=== PATIENT | male | born 1935 | race Caucasian/White ===

== ENCOUNTER 2016-10-09 07:28 | Outpatient (CLI) | payer MEDICARE, OTHER ==
[2016-10-09 14:34] LABS: BASOPHILS # (AUTO) 0.1 10^3/uL (0.0-0.1); BASOPHILS % (AUTO) 1.2 %; EOSINOPHILS # (AUTO) 0.2 10^3/uL (0.0-0.7); EOSINOPHILS % (AUTO) 3.6 %; HCT - HEMATOCRIT 45.9 % (42.0-52.0); HGB - HEMOGLOBIN 15.3 g/dL (14.0-18.0); LYMPHOCYTES # (AUTO) 1.6 10^3/uL (1.5-3.5); LYMPHOCYTES % (AUTO) 26.2 %; MEAN CORPUSCULAR HEMOGLOBIN 31.2 pg (27.0-31.0); MEAN CORPUSCULAR HGB CONC 33.4 g/dL (32.0-36.0); MEAN CORPUSCULAR VOLUME 93.5 fL (80.0-94.0); MEAN PLATELET VOLUME 8.4 fL (7.4-11.4); MONOCYTES # (AUTO) 0.7 10^3/uL (0.0-1.0); NEUTROPHILS # (AUTO) 3.6 10^3/uL (1.5-6.6); NUCLEATED RED BLOOD CELLS AUTO 0.1 /100WBC; RED BLOOD COUNT 4.91 10^6/uL (4.70-6.10); RED CELL DISTRIBUTION WIDTH 12.7 % (12.0-15.0); UNCORRECTED WHITE BLOOD COUNT 6.2 x10^3/uL; WHITE BLOOD COUNT 6.2 x10^3/uL (4.8-10.8)
[2016-10-09 14:38] LABS: ALBUMIN/GLOBULIN RATIO 1.3 (1.0-2.2); BILIRUBIN,TOTAL 0.8 mg/dL (0.2-1.0); CALCIUM 9.2 mg/dL (8.5-10.3); MAGNESIUM 2.3 mg/dL (1.7-2.8); POTASSIUM 4.1 mmol/L (3.5-5.0); TOTAL PROTEIN 6.9 g/dL (6.7-8.2)
[2016-10-09 15:08] LABS: FOLATE 11.83 ng/mL (5.90 - >24.8)
[2016-10-09 15:13] LABS: CHOL/HDL RATIO 3.2 (<5.0); CHOLESTEROL 168 mg/dL; HDL CHOLESTEROL 53 mg/dL; LDL/HDL RATIO 1.8 (<3.6); TRIGLYCERIDES 104 mg/dL; VLDL CHOLESTEROL 21 mg/dL
[2016-10-09 15:15] LABS: THYROID STIMULATING HORMONE 3.9 uIU/mL (0.34-5.60)
== END 2016-10-09 07:29 | disposition home or self-care (01) ==
LOC: LAB.WCP 07:28
PROVIDERS: ATTEND Family Medicine
DX: G62.9 Polyneuropathy, unspecified (principal); R53.83 Other fatigue; E78.5 Hyperlipidemia, unspecified
CPT/HCPCS: 36415; 80053; 80061; 82306; 82607; 82746; 83735; 84403; 84443; 85025

== ENCOUNTER 2017-06-24 11:23 | Emergency (ER) | payer MEDICARE, OTHER ==
[2017-06-24 11:45] VITALS: BP 111/89
[2017-06-24] MEDS ORDERED: LIDOCAINE 1% 2 ML VIAL SUBQ ONE (12:35)
[2017-06-24] MEDS ORDERED: cefTRIAXone 1 GM VIAL IM STA (12:35)
[2017-06-24] MEDS ORDERED: DEXAMETHASONE 10 MG/ML VIAL PO STA (12:35)
--- NOTE | 2017-06-24 12:42 | XRAY Preliminary Report ---
Exam: XR CHEST 2 VIEW X-RAY IMPRESSION: Mild increased right central peribronchial thickening and increased right infrahilar markings which c ould be due to peribronchial thickening, mild atelectasis or possible mild acute infiltrate, without evidence of focal consolidation. [facility] SITE ID: [id number]
--- NOTE | 2017-06-24 12:42 | XRAY Report ---
EXAM: CHEST RADIOGRAPHY EXAM DATE: 06/24/2017 11:59 AM. CLINICAL HISTORY: Cough. COMPARISON: 11/30/2015. TECHNIQUE: 2 views. FINDINGS: Lungs/Pleura: Mild increased predominantly right sided peribronchial thickening and increased right i nfrahilar markings which could be related to peribronchial thickening versus mild atelectasis or mild infiltrate. No dense consolidation. No pleural effusion. No pneumothorax. Mediastinum: Heart and mediastinal contours are unremarkable. Other: No definite acute osseous abnormality. IMPRESSION: Mild increased right central peribronchial thickening and increased right infrahilar markings which c ould be due to peribronchial thickening, mild atelectasis or possible mild acute infiltrate, without evidence of focal consolidation. [facility] Referring Provider Line: [phone] SITE ID: [id number]
--- NOTE | 2017-06-24 13:43 | ED Physician Documentation ---
PD HPI URI - Stated complaint Stated Complaint: COUGH,CHILLS - Chief complaint Chief Complaint: Resp - History obtained from History obtained from: Patient - History of Present Illness Timing - onset: How many days ago (5) Timing duration: Days (5) Timing details: Gradual onset, Still present Associated symptoms: Fever, Chills, Nasal congestion, Rhinorrhea, Productive cough Improves by: Rest, Medication Worsened by: Activity Similar symptoms before: Has not had sx before Recently seen: Not recently seen - Additional information Additional information: 81-year-old male was returned from a trip to [facility] with a cough developing and he has developed a fever with this as well Review of Systems Constitutional: reports: Fever, Chills, Myalgias, Fatigue Eyes: denies: Decreased vision Ears: denies: Ear pain Nose: reports: Rhinorrhea / runny nose, Congestion Throat: reports: Sore throat Cardiac: denies: Chest pain / pressure, Palpitations Respiratory: reports: Cough. denies: Dyspnea GI: denies: Abdominal Pain, Nausea, Vomiting : denies: Dysuria, Frequency Skin: denies: Rash Musculoskeletal: denies: Neck pain, Back pain Neurologic: denies: Generalized weakness, Focal weakness, Numbness PD PAST MEDICAL HISTORY - Past Medical History Past Medical History: No - Past Surgical History Past Surgical History: Yes General: Appendectomy - Present Medications Home Medications: Ambulatory Orders Medication Instructions Recorded Confirmed Aspirin 1 tab PO DAILY 06/24/17 06/24/17 Azithromycin [Zithromax] 250 mg PO DAILY #6 tablet 06/24/17 - Allergies Allergies/Adverse Reactions: Allergies Allergy/AdvReac Type Severity Reaction Status Date / Time No Known Drug Allergies Allergy Verified 06/24/17 11:45 - Social History Does the pt smoke?: No Smoking Status: Never smoker Does the pt drink ETOH?: Yes ETOH Use: Wine Does the pt have substance abuse?: No - Immunizations Immunizations are current?: Yes - POLST Patient has POLST: No PD ED PE NORMAL - Vitals Vital signs reviewed: Yes (normal ) - General General: No acute distress, Well developed/nourished - HEENT HEENT: Atraumatic, PERRL, EOMI, Pharynx benign, Other (right TM is inflamed left is clear) - Neck Neck: Supple, no meningeal sign, No bony TTP - Cardiac Cardiac: RRR, No murmur - Respiratory Respiratory: No respiratory distress - Abdomen Abdomen: Soft, Non tender - Back Back: No CVA TTP, No spinal TTP - Derm Derm: Normal color, Warm and dry, No rash - Extremities Extremities: No deformity, No edema - Neuro Neuro: No motor deficit, No sensory deficit Eye Opening: Spontaneous Motor: Obeys Commands Verbal: Oriented GCS Score: 15 - Psych Psych: Normal mood, Normal affect Results - Vitals Vitals: Vital Signs - 24 hr 06/24/17 11:40 Temperature 37.3 C Heart Rate 73 Respiratory 20 Rate Blood Pressure 111/89 H O2 Saturation 96 Oxygen O2 Source Room air - Rads (name of study) 2 veiw chest Radiology: Prelim report reviewed (Impression: Mild increased right central peribronchial thickening and increased right infrahilar markings which could be peribronchial thickening, mild atelectasis or possible mild acute infiltrate, without evidence of focal consolidation.), EMP read indepedently, See rad report PD MEDICAL DECISION MAKING - ED course Complexity details: reviewed old records, reviewed results, re-evaluated patient , considered differential, d/w patient, d/w family ED course: 81-year-old male with acute URI appears to have pneumonia on x-ray of his lungs here in the emergency department he is administered dexamethasone 10 mg orally and 1 g of Rocephin IM. We will put him on some azithromycin as well. Departure - Departure Disposition: 01 Home, Self Care Clinical Impression: Pneumonia Qualifiers: Pneumonia type: due to unspecified organism Laterality: right Lung location: lower lobe of lung Qualified Code(s): J18.1 - Lobar pneumonia, unspecified organism Condition: Stable Instructions: ED Pneumonia Adult Follow-Up: Lucien Lan MD [Primary Care Provider] - Prescriptions: Azithromycin [Zithromax] 250 mg PO DAILY #6 tablet
== END 2017-06-24 14:03 | disposition home or self-care (01) ==
LOC: ED 11:23
DX: J06.9 Acute upper respiratory infection, unspecified (principal); J18.9 Pneumonia, unspecified organism
CPT/HCPCS: 71046; 96372; 99283

== ENCOUNTER 2017-06-26 13:28 | Emergency (ER) | payer MEDICARE, OTHER ==
[2017-06-26 13:42] VITALS: BP 130/63
--- NOTE | 2017-06-26 16:07 | ED Physician Documentation ---
PD HPI URI - Stated complaint Stated Complaint: COUGHING UP BLOOD - Chief complaint Chief Complaint: Resp - History obtained from History obtained from: Patient - History of Present Illness Timing - onset: How many days ago (8) Timing duration: Days (8) Timing details: Gradual onset, Still present Associated symptoms: Fever, Nasal congestion, Rhinorrhea, Sore throat, Productive cough, Hemoptysis Contributing factors: Travel Improves by: Rest, Medication Worsened by: Activity Similar symptoms before: Diagnosis (pneumonia) Recently seen: Emergency Dept - Additional information Additional information: 81-year-old male has recently returned from [facility] on [address] with a cough congestion and phlegm production. He was seen in the emergency department here 3 days ago diagnosed with pneumonia in the right lower lobe and he was given an injection of Rocephin some dexamethasone and was placed on azithromycin.He states that he is feeling much better but continues to have nasal congestion and cough. He has started to cough up blood. He has brought in samples about dime size spots of phlegm. This has usually occurred after coughing paroxysm and has happened about once or twice per day. He is not having any blood from his nose. He does have yellow phlegm in between the bloody phlegm Review of Systems Constitutional: reports: Fever, Myalgias, Fatigue Eyes: denies: Decreased vision Ears: denies: Ear pain Nose: reports: Rhinorrhea / runny nose, Congestion Throat: reports: Sore throat Cardiac: denies: Chest pain / pressure, Palpitations Respiratory: reports: Cough, Hemoptysis. denies: Dyspnea GI: denies: Abdominal Pain, Nausea, Vomiting : denies: Dysuria, Frequency Skin: denies: Rash Musculoskeletal: denies: Neck pain, Back pain, Extremity pain Neurologic: denies: Generalized weakness, Focal weakness, Numbness PD PAST MEDICAL HISTORY - Past Medical History Past Medical History: No - Past Surgical History Past Surgical History: Yes General: Appendectomy - Present Medications Home Medications: Ambulatory Orders Medication Instructions Recorded Confirmed Aspirin 1 tab PO DAILY 06/24/17 06/24/17 Azithromycin [Zithromax] 250 mg PO DAILY #6 tablet 06/24/17 Benzonatate [Tessalon] 100 - 200 mg PO TID PRN #20 capsule 06/26/17 - Allergies Allergies/Adverse Reactions: Allergies Allergy/AdvReac Type Severity Reaction Status Date / Time No Known Drug Allergies Allergy Verified 06/26/17 13:42 - Social History Does the pt smoke?: No Smoking Status: Never smoker Does the pt drink ETOH?: Yes Does the pt have substance abuse?: No - Immunizations Immunizations are current?: Yes - POLST Patient has POLST: No PD ED PE NORMAL - Vitals Vital signs reviewed: Yes (normal ) - General General: Alert and oriented X 3, No acute distress, Well developed/nourished - HEENT HEENT: Atraumatic, PERRL, EOMI, Moist mucous membranes, Pharynx benign, Dentition benign, Other (There is minimal inflamation on the right TM only ) - Neck Neck: Supple, no meningeal sign, No bony TTP - Cardiac Cardiac: RRR, No murmur - Respiratory Respiratory: No respiratory distress, Clear bilaterally - Abdomen Abdomen: Soft, Non tender - Back Back: No CVA TTP, No spinal TTP - Derm Derm: Normal color, Warm and dry, No rash - Extremities Extremities: No deformity, No edema - Neuro Neuro: Alert and oriented X 3, No motor deficit, No sensory deficit, Normal speech Eye Opening: Spontaneous Motor: Obeys Commands Verbal: Oriented GCS Score: 15 - Psych Psych: Normal mood, Normal affect Results - Vitals Vitals: Vital Signs - 24 hr 06/26/17 13:35 Temperature 37 C Heart Rate 56 L Respiratory 15 Rate Blood Pressure 130/63 O2 Saturation 97 Oxygen O2 Source Room air - Rads (name of study) 2 view chest Radiology: Prelim report reviewed (Impression: No consolidation.), EMP read indepedently (on my veiw there is interval improvement), See rad report PD MEDICAL DECISION MAKING - ED course Complexity details: reviewed old records, reviewed results, re-evaluated patient , considered differential, d/w patient ED course: 81-year-old male with pneumonia has developed some hemoptysis after coughing paroxysms. He feels he is improving dramatically with his cough and his symptoms and chest x-ray today demonstrates radiographic improvement as well. I will prescribe some cough suppressant. Departure - Departure Disposition: 01 Home, Self Care Clinical Impression: Pneumonia Qualifiers: Pneumonia type: due to unspecified organism Laterality: right Lung location: lower lobe of lung Qualified Code(s): J18.1 - Lobar pneumonia, unspecified organism Condition: Stable Instructions: ED Pneumonia Adult Follow-Up: Lucien Lan MD [Primary Care Provider] - Prescriptions: Benzonatate [Tessalon] 100 - 200 mg PO TID PRN #20 capsule PRN Reason: Cough
--- NOTE | 2017-06-26 16:14 | XRAY Report ---
EXAM: CHEST RADIOGRAPHY EXAM DATE: 06/26/2017 03:38 PM. CLINICAL HISTORY: Hemoptysis. COMPARISON: Chest x-ray 06/24/2017. TECHNIQUE: 2 views. FINDINGS: Lungs/Pleura: No focal opacities evident. No pleural effusion. No pneumothorax. Normal volumes. Mediastinum: Heart and mediastinal contours are unremarkable. Other: None. IMPRESSION: No consolidation. [facility] Referring Provider Line: [phone] SITE ID: [id number]
== END 2017-06-26 16:28 | disposition home or self-care (01) ==
LOC: ED 13:28
DX: J18.1 Lobar pneumonia, unspecified organism (principal); R04.2 Hemoptysis; Z79.82 Long term (current) use of aspirin
CPT/HCPCS: 71046; 99283; 99284

== ENCOUNTER 2018-04-24 08:00 | Outpatient (CLI) | payer MEDICARE, OTHER ==
[2018-04-24 19:00] LABS: BASOPHILS # (AUTO) 0.1 10^3/uL (0.0-0.1); BASOPHILS % (AUTO) 0.9 %; EOSINOPHILS # (AUTO) 0.2 10^3/uL (0.0-0.7); EOSINOPHILS % (AUTO) 2.1 %; LYMPHOCYTES # (AUTO) 1.3 10^3/uL (1.5-3.5); MEAN CORPUSCULAR HEMOGLOBIN 31.9 pg (27.0-31.0); MEAN CORPUSCULAR HGB CONC 33.1 g/dL (32.0-36.0); MEAN CORPUSCULAR VOLUME 96.5 fL (80.0-94.0); MEAN PLATELET VOLUME 8.1 fL (7.4-11.4); MONOCYTES # (AUTO) 0.8 10^3/uL (0.0-1.0); MONOCYTES % (AUTO) 11.3 %; NEUTROPHILS % (AUTO) 67.7 %; PLT - PLATELET COUNT 253 10^3/uL (130-450); RED BLOOD COUNT 5.01 10^6/uL (4.70-6.10); RED CELL DISTRIBUTION WIDTH 13.2 % (12.0-15.0); WHITE BLOOD COUNT 7.5 x10^3/uL (4.8-10.8)
[2018-04-24 19:26] LABS: ALBUMIN 4.1 g/dL (3.2-5.5); ALBUMIN/GLOBULIN RATIO 1.5 (1.0-2.2); ALKALINE PHOSPHATASE 61 IU/L (42-121); ALT ALANINE AMINOTRANSFERASE 32 IU/L (10-60); AST ASPARTATE AMINOTRANSFERASE 27 IU/L (10-42); BILIRUBIN,TOTAL 0.6 mg/dL (0.2-1.0); BUN - BLOOD UREA NITROGEN 18 mg/dL (6-20); CALCIUM 8.9 mg/dL (8.5-10.3); CARBON DIOXIDE - CO2 27 mmol/L (21-32); CHLORIDE 104 mmol/L (101-111); GFR - MDRD 71 (>89); GLUCOSE 95 mg/dL (70-100); SODIUM 139 mmol/L (135-145); TOTAL PROTEIN 6.8 g/dL (6.7-8.2)
== END 2018-04-24 23:59 | disposition home or self-care (01) ==
LOC: LAB.WCP 08:00
PROVIDERS: ATTEND Family Medicine
DX: M75.101 Unspecified rotator cuff tear or rupture of right shoulder, not specified as traumatic (principal); H61.23 Impacted cerumen, bilateral; E73.9 Lactose intolerance, unspecified; J45.909 Unspecified asthma, uncomplicated
CPT/HCPCS: 36415; 80053; 84443; 85025

== ENCOUNTER 2018-09-28 05:49 | Observation (INO) | payer MEDICARE, OTHER ==
--- NOTE | 2018-09-28 06:06 | ED Physician Documentation ---
PD HPI CHEST PAIN - Stated complaint Stated Complaint: CP - Chief complaint Chief Complaint: Cardiac - History obtained from History obtained from: Patient, Family - History of Present Illness Timing - onset during: Sleep Timing - duration: Minutes (75) Timing - details: Abrupt onset Pain level max: 5 Pain level now: 4 Quality: Pressure, Sharp Location: Left chest Radiation: No: Jaw, Neck, Back, Abdominal, Left upper extremity, Right upper extremity Improved by: ASA Worsened by: No: Exertion, Inspiration, Eating, Movement, Palpation, Position Associated symptoms: Feeling faint / dizzy. No: Shortness of air, Diaphoresis, Nausea, Vomiting, General Weakness, Palpitations, Cough Similar symptoms before: Has not had sx before Recently seen: Not recently seen - Additional information Additional information: 83-year-old gentleman with left-sided chest pain this morning. Nonradiating. States he had a similar episode last night x2. These resolved after about an hour and soon after taking aspirin. Occurred again this morning when he took a full dose aspirin and the pain persisted, therefore came for evaluation. Had a normal cardiac stress test several years ago. Runs 30 minutes 3 times a week on a treadmill. No cardiac history Review of Systems Constitutional: denies: Fever, Chills Cardiac: denies: Palpitations Respiratory: denies: Cough GI: denies: Vomiting, Diarrhea Skin: denies: Rash Musculoskeletal: denies: Neck pain, Back pain Neurologic: denies: Headache PD PAST MEDICAL HISTORY - Past Medical History Past Medical History: Yes Respiratory: Asthma - Past Surgical History Past Surgical History: Yes General: Appendectomy - Present Medications Home Medications: Ambulatory Orders Medication Instructions Recorded Confirmed Aspirin 1 tab PO DAILY 06/24/17 06/24/17 Azithromycin [Zithromax] 250 mg PO DAILY #6 tablet 06/24/17 Benzonatate [Tessalon] 100 - 200 mg PO TID PRN #20 capsule 06/26/17 - Allergies Allergies/Adverse Reactions: Allergies Allergy/AdvReac Type Severity Reaction Status Date / Time No Known Drug Allergies Allergy Verified 09/28/18 05:58 - Living Situation Living Situation: reports: With family Living Arrangement: reports: At home - Social History Does the pt smoke?: No Smoking Status: Never smoker Does the pt drink ETOH?: Yes ETOH Use: Wine Does the pt have substance abuse?: No - Immunizations Immunizations are current?: Yes - POLST Patient has POLST: No PD ED PE NORMAL - Vitals Vital signs reviewed: Yes - General General: Alert and oriented X 3, No acute distress, Well developed/nourished - HEENT HEENT: PERRL, Moist mucous membranes - Neck Neck: Supple, no meningeal sign - Cardiac Cardiac: RRR, Strong equal pulses - Respiratory Respiratory: No respiratory distress, Clear bilaterally - Abdomen Abdomen: Soft, Non tender, Non distended - Derm Derm: Warm and dry - Extremities Extremities: No edema, No calf tenderness / cord - Neuro Neuro: Alert and oriented X 3 - Psych Psych: Normal mood, Normal affect Results - Vitals Vitals: Vital Signs - 24 hr 09/28/18 09/28/18 05:55 05:59 Temperature 36.1 C L Heart Rate 51 L 46 L Respiratory 15 16 Rate Blood Pressure 179/73 H 179/93 H O2 Saturation 99 99 Oxygen O2 Source Room air - EKG (time done) 0603 Rate: Rate (enter#) (49) Rhythm: Sinus bradycardia [place]: Normal Intervals: Normal [place], RBBB - Labs Labs: Laboratory Tests 09/28/18 09/28/18 09/28/18 06:05 06:05 06:05 WBC 7.8 RBC 4.56 L Hgb 15.0 Hct 42.4 MCV 93.0 MCH 33.0 H MCHC 35.4 RDW 12.9 Plt Count 237 MPV 7.2 L Neut # (Auto) 5.0 Lymph # (Auto) 1.8 Brule # (Auto) 0.9 Eos # (Auto) 0.1 Baso # (Auto) 0.1 Absolute Nucleated RBC 0.00 Nucleated RBC % 0.1 Sodium 141 Potassium 4.3 Chloride 105 Carbon Dioxide 25 Anion Gap 11.0 BUN 28 H Creatinine 1.1 Estimated GFR (MDRD) 64 L Glucose 101 H Calcium 9.1 Total Bilirubin 0.6 AST 20 ALT 18 Alkaline Phosphatase 57 Troponin I < 0.04 Total Protein 6.6 L Albumin 3.7 Globulin 2.9 Albumin/Globulin Ratio 1.3 Lipase 44 - Rads (name of study) Chest x-ray Radiology: Prelim report reviewed, EMP read contemporaneously, See rad report (Normal) PD MEDICAL DECISION MAKING - ED course Complexity details: reviewed results, re-evaluated patient, considered differential (No ST elevation [place], no aortic dissection, no PE, no tension pneumothorax, no aortic aneurysm), d/w patient, d/w quantitative consultant ED course: 83-year-old gentleman with left-sided chest pain today. Has a right bundle branch block on EKG. Initial troponin is negative. He states that he does have high systolic blood pressure when he checks it at the machine at the gym but is not on medication for this. Will place him in observation for rule out FL. He will likely also need a cardiac stress test early next week. Discussed the case with Dr. Simon, hospitalist who accepts. This document was made in part using voice recognition software. While efforts are made to proofread this document, sound alike and grammatical errors may occur. Bradycardia is chronic and asymptomatic Departure - Departure Disposition: ED Place in Observation Clinical Impression: Bradycardia Chest pain Qualifiers: Chest pain type: unspecified Qualified Code(s): R07.9 - Chest pain, unspecified Hypertension Qualifiers: Hypertension type: unspecified Qualified Code(s): I10 - Essential (primary) hypertension Condition: Stable
[2018-09-28 06:13] LABS: BASOPHILS # (AUTO) 0.1 10^3/uL (0.0-0.1); BASOPHILS % (AUTO) 0.8 %; EOSINOPHILS # (AUTO) 0.1 10^3/uL (0.0-0.7); EOSINOPHILS % (AUTO) 1.8 %; LYMPHOCYTES # (AUTO) 1.8 10^3/uL (1.5-3.5); LYMPHOCYTES % (AUTO) 22.7 %; MEAN CORPUSCULAR HGB CONC 35.4 g/dL (32.0-36.0); MEAN PLATELET VOLUME 7.2 fL (7.4-11.4); MONOCYTES # (AUTO) 0.9 10^3/uL (0.0-1.0); NEUTROPHILS % (AUTO) 63.7 %; PLT - PLATELET COUNT 237 10^3/uL (130-450); RED BLOOD COUNT 4.56 10^6/uL (4.70-6.10); RED CELL DISTRIBUTION WIDTH 12.9 % (12.0-15.0); WHITE BLOOD COUNT 7.8 x10^3/uL (4.8-10.8)
--- NOTE | 2018-09-28 06:24 | XRAY Report ---
Reason: chest pain L side Procedure Date: 09/28/2018 Accession Number: [id number] / [id number] Procedure: XR - Chest 1 View X-Ray CPT Code: 01314 FULL RESULT: EXAM: CHEST RADIOGRAPHY EXAM DATE: 09/28/2018 06:14 AM. CLINICAL HISTORY: Chest pain L side. COMPARISON: None. TECHNIQUE: 1 view. FINDINGS: Lungs/Pleura: No focal opacities evident. No pleural effusion. No pneumothorax. Mediastinum: Within exam limitations, the cardiomediastinal contour is normal. Other: None. IMPRESSION: Normal single view chest. [facility]
[2018-09-28 06:26] LABS: ALBUMIN 3.7 g/dL (3.2-5.5); ALBUMIN/GLOBULIN RATIO 1.3 (1.0-2.2); BILIRUBIN,TOTAL 0.6 mg/dL (0.2-1.0); CALCIUM 9.1 mg/dL (8.5-10.3); CREATININE 1.1 mg/dL (0.6-1.2); TOTAL PROTEIN 6.6 g/dL (6.7-8.2)
[2018-09-28] MEDS ORDERED: HYDROcod/ACETAM 5/325 MG TABLET PO PRN (07:35)
[2018-09-28] MEDS ORDERED: SODIUM CHLORIDE FLUSH 0.9% 10 ML SYRINGE IVP PRN (07:35)
[2018-09-28] MEDS ORDERED: MORPHINE 2 MG/ML CARPUJECT IVP PRN (07:35)
[2018-09-28] MEDS ORDERED: ACETAMINOPHEN 325 MG TABLET PO PRN (07:35)
[2018-09-28] MEDS ORDERED: PROCHLORPERAZINE 10 MG/2 ML VIAL IVP PRN (07:35)
[2018-09-28] MEDS ORDERED: NITROGLYCERIN SL 0.4 MG TABLET SL STA (08:15)
[2018-09-28 08:43] LABS: CHOL/HDL RATIO 3.1 (<5.0); CHOLESTEROL 154 mg/dL; HDL CHOLESTEROL 49 mg/dL; LDL CHOLESTEROL,CALCULATED 93 mg/dL; LDL/HDL RATIO 1.9 (<3.6); VLDL CHOLESTEROL 12 mg/dL
[2018-09-28] MEDS ORDERED: amLODIPine 5 MG TABLET PO SCH (09:00)
[2018-09-28] MEDS: SODIUM CHLORIDE FLUSH 0.9% 10 ML SYRINGE IVP SCH ×2 (09:30→20:49)
[2018-09-28] MEDS: ASPIRIN EC 81 MG TABLET PO SCH (10:04)
[2018-09-28] MEDS: ENOXAPARIN 40 MG/0.4 ML SYRINGE SUBQ SCH (10:16)
[2018-09-28] MEDS: POLYETHYLENE GLYCOL 3350 17 GM PACKET PO SCH (10:16)
[2018-09-28] MEDS: FLUTICASONE NASAL SPRAY NAS SCH ×2 (10:20→20:35)
--- NOTE | 2018-09-28 14:48 | HISTORY & PHYSICAL EXAMINATION ---
DATE OF SERVICE: 10/05/2018 Physician: Minal Simon MD HISTORY OF PRESENT ILLNESS: This is an 83-year-old white male with a history of asthma for which he takes p.r.n. 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 The patient remembers having 2 stress tests in the past and thinks he passed them. He exercises 3 times a week at the gym and does light weight training. The patient developed left lower anterior chest pain with mild activity for which he took a baby aspirin and he states this helped the discomfort in about 45 minutes. Another episode occurred that woke him from sleep for which he took again a baby aspirin and again resolved in 45 minutes and this morning there was chest pain as he awoke for which his gave him 2 adult aspirin and again it resolved in 1.5 hours. The pain was not pleuritic. There were no associated symptoms or spread of the discomfort and he has never had it before these last several days. He presented to the emergency room with this discomfort and has not had it since MEDICATIONS 1. Refresh Tears 2. Flonase nasal spray. 3. Flovent inhaler p.r.n. b.i.d. ALLERGIES: NONE. FAMILY HISTORY: His father had coronary disease, a son had melanoma. SOCIAL HISTORY: The patient is a nonsmoker who never smoked, drinks one-half glass of wine per day, uses no illicit drugs. 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 A comprehensive review of systems was performed and they are listed above the rest pertinent positives and negative, . PHYSICAL EXAMINATION GENERAL: Elderly white male. He is in no distress. Speaks with a hoarse voice. VITAL SIGNS: Blood pressure 150/100, heart rate 44-55 in sinus bradycardia, afebrile, room air saturation 100%. HEENT: Reveals moist oral mucosa. Good dentition. Hoarse voice. NECK: Without JVD or carotid bruits. CHEST: Clear. Good air movement. HEART: Normal heart sounds without murmurs. ABDOMEN: Soft with positive bowel sounds that are hyperactive also, heard in the lower chest, nontender. EXTREMITIES: No clubbing, cyanosis or edema. NEUROLOGIC: Grossly intact. LABORATORY LABORATORIES: Normal electrolytes, normal being Normal electrolytes, BUN 28, creatinine 1.1. Normal liver tests. Troponin is not detectable at less than 0.04. Lipase normal. CBC unremarkable. No INR was done. DIAGNOSTIC STUDIES: Chest x-ray: No active pulmonary disease. EKG: Sinus bradycardia, right bundle branch block. No old EKG available for comparison. IMPRESSION 1. Chest pain, possible angina of new onset since the patient's risk factors are uncontrolled hypertension, unknown cholesterol status, family history of heart disease, male gender and advanced age. 3. Hypertension. 4. Bradycardia. 5. Prerenal renal failure. 6. History of asthma. 7. History of vocal cord abnormality. 8. History of gastroesophageal reflux disease. PLAN: Admit the patient in Observation status, on telemetry. Cycle troponins x3. Obtain an Echo to evaluate for resting wall motion abnormalities. Check his cholesterol status. Continue to treat the asthma history with p.r.n. inhalers. If he has normal troponins the next step would be a stress test; however, this is the weekend and we have no stress testing availability on Saturdays or Sundays. Determination about further management would depend on the above results, therefore. Order sublingual NTG prn and start a daily baby aspirin. CODE STATUS: FULL CODE. DEEP VENOUS THROMBOSIS PROPHYLAXIS: SCDs. ATTESTATION: The patient is expected to be discharged or transferred to another facility within 96 hours: Yes. cc: Lucien Lan MD TD: 09/28/2018 12:58 [facility]
[2018-09-28] MEDS: FAMOTIDINE 20 MG TABLET PO SCH (20:49)
[2018-09-29] MEDS: SODIUM CHLORIDE FLUSH 0.9% 10 ML SYRINGE IVP SCH ×2 (01:19→10:07)
[2018-09-29 05:49] LABS: CHOL/HDL RATIO 3.2 (<5.0); CHOLESTEROL 152 mg/dL; HDL CHOLESTEROL 48 mg/dL; LDL CHOLESTEROL,CALCULATED 82 mg/dL; LDL/HDL RATIO 1.7 (<3.6); VLDL CHOLESTEROL 22 mg/dL
[2018-09-29 06:08] LABS: CALCIUM 9.2 mg/dL (8.5-10.3)
[2018-09-29 08:18] VITALS: BP 138/64
[2018-09-29] MEDS: POLYETHYLENE GLYCOL 3350 17 GM PACKET PO SCH (09:42)
[2018-09-29] MEDS: FAMOTIDINE 20 MG TABLET PO SCH (10:06)
[2018-09-29] MEDS: ASPIRIN EC 81 MG TABLET PO SCH (10:06)
[2018-09-29] MEDS: ENOXAPARIN 40 MG/0.4 ML SYRINGE SUBQ SCH (10:07)
[2018-09-29] MEDS: FLUTICASONE NASAL SPRAY NAS SCH (10:12)
--- NOTE | 2018-09-29 10:31 | Discharge Plan ---
Discharge Plan Disposition: 01 Home, Self Care Condition: Stable Prescriptions: Nitroglycerin [Nitrostat] 0.4 mg SL Q5MIN PRN #100 tab.subl PRN Reason: Angina Aspirin [Aspirin EC] 81 mg PO DAILY #30 tablet. Diet: Cardiac Activity Restrictions: Light activity, no gym, no exercise Shower Restrictions: No Driving Restrictions: No Instruction Topics: Angina, Nitroglycerin Fast Acting Additional Instructions or Follow Up instructions: You were in the hospital to evaluate chest pain. Some of the features of your chest pain do not sound like they are coming from the heart, they are more musculoskeletal (the brief twinges in the left lateral side of your chest). Your EKG, however, has subtle changes to suggest that you do have cardiac and coronary disease. Therefore, you are being discharged on a new prescription for sublingual nitroglycerin to take if you develop the prolonged chest pain. You need further evaluation, since we could not do stress testing here over the weekend. You should NOT participate in exercise or go to the gym, until you have further work-up and are cleared by a doctor to resume exercise. You should see your PCP this week to have a stress test scheduled and/or get a referral to a [employer]. Please resume all your usual prehospital medications, and resume taking daily baby aspirin. If you have new or worsening symptoms, contact your PCP or come to the ER. No Smoking: If you smoke, Please STOP! Call for help. Follow-up with: Lucien Lan MD [Primary Care Provider] -
--- NOTE | 2018-09-29 12:37 | DISCHARGE SUMMARY ---
Discharge Summary Admit Date: 09/28/18 Discharge Date: 09/29/18 Discharging Provider: Dr Minal Simon Primary Care Provider: Dr Lucien Lan Condition at Discharge: Stable Discharge Disposition: 01 Home, Self Care - DIAGNOSES Admission Diagnoses: 1. Chest pain 2. Hx of asthma 3. Hx of GERD 4. RBBB on EKG Discharge Diagnoses with Status of Each Condition: 1. Chest pain/ Possible angina. The patient ruled out for an [place] with 3 troponins that were negative. A resting Echo showed no LV wall motion abnormality or pericardial effusion. The patient did have 3 episodes of brief chest pain that recurred while here. There were 2 different types: one was in his left axilla that was a twinge feeling that lasted 10 seconds and another in the left anterior chest which lasted for 5 to 10 minutes. An EKG was done during the left anterior chest pain episode which showed his old right bundle branch block with new ST-T abnormality in V1 through V3. Fasting blood tests showed a total cholesterol 154, LDL 93, HDL 49. He did not undergo a stress test while here, since the hospital does not have this ability over the weekend. The patient was discharged on new sublingual nitroglycerin to take prn, and I reviewed, with him and his , how this should be taken. He should resume taking his baby aspirin daily. He was told to see his PCP in this next week to arrange for a stress test or Cardiology referral. He was told to refrain from going to the gym or exercising, only light activity allowed until he is cleared to resume exercise by a provider. 2. Bradycardia. Patient was not started on empiric beta-juanis for treatment of angina because of bradycardia. His heart rates were 45-55 in sinus rhythm during his entire stay. This also needs follow-up and avoidance of heart rate slowing meds. 3. Hypertension. The patient was hypertensive on admission (179/93, 152/103), but this improved at rest without new medications (138/64 at discharge). 4. History of asthma. The patient had no wheezing or symptoms of shortness of breath while here, he was only ordered to get inhalers prn while here. 5. Prerenal renal failure. The patient's BUN/creatinine was 28/1.1 , suggesting mild dehydration. 6. 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 6. History of GERD. He had no complaints of GERD while here; the GERD symptoms are different than this presenting chest pain complaint. - HPI History of Present Illness: This is an 83-year-old white male with a history of asthma and vocal cord abnormality with hoarseness for 10 years, history of GERD for which he underwent some type of endoscopic procedure that "cured his GERD". He remembers having 2 stress tests in the past for unknown reasons and thinks he passed them. He exercises 3 times a week in a gym. He usually took 1 baby aspirin daily but stopped this 1 week ago at the advice of a friend who told him that he read that it was not necessary to take daily. The patient developed new onset of left lower anterior chest pain during mild activity for which he took a baby aspirin and stated that this resolved his discomfort in about 45 minutes. Another episode occurred that woke him from sleep for which he again took a baby aspirin and it resolved in 45 minutes. When he awoke for the morning with chest pain again, his gave him 2 adult aspirin, and this episode lasted 1.5 hours, therefore he presented to the emergency room. There was no pleuritic component or radiation of pain or associated symptoms. He was placed in Observation status to evaluate the chest pain - CONSULTS | PROCEDURES Consultations: None - HOSPITAL COURSE Hospital Course: See above - ALLERGIES Allergies/Adverse Reactions: Allergies Allergy/AdvReac Type Severity Reaction Status Date / Time No Known Drug Allergies Allergy Verified 09/28/18 05:58 - MEDICATIONS Home Medications: Ambulatory Orders Medication Instructions Recorded Confirmed Carboxymethylcellulose Sodium 1 drops EACHEYE PRN PRN 09/28/18 09/28/18 [Refresh Tears] Fluticasone 44 Mcg [Flovent] 2 puffs INH BID 09/28/18 09/28/18 Fluticasone [Flonase] 1 spray TRICIA BID 09/28/18 09/28/18 Aspirin [Aspirin EC] 81 mg PO DAILY #30 tablet. 09/29/18 Nitroglycerin [Nitrostat] 0.4 mg SL Q5MIN PRN #100 tab.subl 09/29/18 - PHYSICAL EXAM AT DISCHARGE General Appearance: positive: No acute distress Eyes Bilateral: positive: Normal inspection ENT: positive: Other (Hoarseness of voice) Respiratory: positive: No respiratory distress, Breath sounds nml Cardiovascular: positive: Regular rate & rhythm, No murmur Abdomen: positive: Nml bowel sounds Extremities: positive: No pedal edema - LABS Result Diagrams: 09/28/18 06:05 09/29/18 05:02 - DIAGNOSTIC IMAGING Diagnostic Imaging Results: Final report reviewed - TIME SPENT Time Spent in Discharge (Minutes): 30
== END 2018-09-29 11:30 | disposition home or self-care (01) ==
LOC: ED 05:49 → MS3 07:35
PROVIDERS: ADMIT Internal Medicine; ATTEND Internal Medicine
DX: R07.89 Other chest pain (principal); R00.1 Bradycardia, unspecified; I10 Essential (primary) hypertension; R94.31 Abnormal electrocardiogram [ECG] [EKG]; R79.89 Other specified abnormal findings of blood chemistry; J45.909 Unspecified asthma, uncomplicated; J38.3 Other diseases of vocal cords; R49.0 Dysphonia; I45.10 Unspecified right bundle-branch block; Z87.19 Personal history of other diseases of the digestive system; Z85.820 Personal history of malignant melanoma of skin; Z82.49 Family history of ischemic heart disease and other diseases of the circulatory system
CPT/HCPCS: 36415; 71045; 80048; 80053; 80061; 83690; 84484; 85025; 93005; 93306; 96372; 99284; A9270; G0378; J1650; 83721

== ENCOUNTER 2019-05-16 13:18 | Outpatient (CLI) | payer MEDICARE, OTHER ==
[2019-05-16] MEDS ORDERED: IOVERSOL 320 100 ML VIAL IVP ONE ×2 (13:27→14:50)
[2019-05-16] MEDS ORDERED: IOVERSOL 320 50 ML VIAL ONE (13:27)
[2019-05-16] MEDS ORDERED: IOVERSOL 320 50 ML VIAL PO ONE (14:50)
--- NOTE | 2019-05-16 15:56 | CT Report ---
Reason: WEIGHT LOSS, ABD BLOATING Procedure Date: 05/16/2019 Accession Number: [id number] / [id number] Procedure: CT - Abdomen/Pelvis W CPT Code: Final Report FULL RESULT: EXAM: CT ABDOMEN AND PELVIS EXAM DATE: 05/16/2019 02:49 PM. CLINICAL HISTORY: Weight loss. Bloating. COMPARISONS: ABDOMEN/PELVIS W/ 12/16/2012. TECHNIQUE: Routine helical CT imaging was performed through the abdomen and pelvis. IV contrast: 100 mL of Optiray 320. Enteric contrast: No. Reconstructions: Coronal and sagittal. In accordance with CT protocol optimization, one or more of the following dose reduction techniques were utilized for this exam: automated exposure control, adjustment of mA and/or KV based on patient size, or use of iterative reconstructive technique. FINDINGS: Lung Bases: Unremarkable. Liver: Diffuse low density. Gallbladder/Bile Ducts: Unremarkable. Spleen: Normal. Pancreas: Normal. Adrenal Glands: Normal. Kidneys: Stable bilateral cysts, otherwise unremarkable. Peritoneal Cavity/Bowel: Diverticulosis. No free fluid, free air or adenopathy. No masses or acute inflammatory process. Nonvisualized appendix. Pelvic Organs: Normal. The bladder and visualized pelvic organs are within normal limits. Vasculature: No aneurysms or other significant abnormality. Bones: No significant abnormality. Other: None. IMPRESSION: 1. Diverticulosis without diverticulitis or other acute bowel abnormality. 2. Hepatic steatosis. 3. Bilateral renal cysts. RADIA
== END 2019-05-16 13:19 | disposition home or self-care (01) ==
LOC: DI 13:18
PROVIDERS: ATTEND Family Medicine
DX: K57.30 Diverticulosis of large intestine without perforation or abscess without bleeding (principal); K76.0 Fatty (change of) liver, not elsewhere classified; Q61.02 Congenital multiple renal cysts
CPT/HCPCS: 74177; Q9967

== ENCOUNTER 2020-07-01 08:00 | Outpatient (CLI) | payer MEDICARE, OTHER ==
[2020-07-01 14:22] LABS: THYROID STIMULATING HORMONE 2.38 uIU/mL (0.34-5.60)
[2020-07-01 14:23] LABS: FREE T3 2.96 pg/mL (2.5-3.9)
[2020-07-01 14:24] LABS: FREE T4 (FREE THYROXINE) 0.82 ng/dL (0.58-1.64)
[2020-07-01 14:26] LABS: PSA TOTAL 1.94 ng/mL (0.000-2.000)
== END 2020-07-01 23:59 | disposition home or self-care (01) ==
LOC: LAB.WCP 08:00
PROVIDERS: ATTEND Family Medicine
DX: N52.9 Male erectile dysfunction, unspecified (principal); N40.0 Benign prostatic hyperplasia without lower urinary tract symptoms; I10 Essential (primary) hypertension
CPT/HCPCS: 36415; 84153; 84403; 84439; 84443; 84481

== ENCOUNTER 2021-05-03 08:00 | Outpatient (CLI) | payer MEDICARE, OTHER ==
[2021-05-03 12:04] LABS: BASOPHILS # (AUTO) 0.1 10^3/uL (0.0-0.1); BASOPHILS % (AUTO) 0.7 %; EOSINOPHILS # (AUTO) 0.3 10^3/uL (0.0-0.7); EOSINOPHILS % (AUTO) 2.4 %; HCT - HEMATOCRIT 46.3 % (42.0-52.0); HGB - HEMOGLOBIN 15.5 g/dL (14.0-18.0); LYMPHOCYTES # (AUTO) 1.6 10^3/uL (1.5-3.5); LYMPHOCYTES % (AUTO) 15.1 %; MEAN CORPUSCULAR HEMOGLOBIN 32.4 pg (27.0-31.0); MEAN CORPUSCULAR HGB CONC 33.5 g/dL (32.0-36.0); MEAN CORPUSCULAR VOLUME 96.9 fL (80.0-94.0); MEAN PLATELET VOLUME 9.4 fL (7.4-11.4); MONOCYTES % (AUTO) 8.9 %; NEUTROPHILS # (AUTO) 7.8 10^3/uL (1.5-6.6); NEUTROPHILS % (AUTO) 72.6 %; PLT - PLATELET COUNT 250 10^3/uL (130-450); RED BLOOD COUNT 4.78 10^6/uL (4.70-6.10); WHITE BLOOD COUNT 10.7 x10^3/uL (4.8-10.8)
[2021-05-03 12:30] LABS: THYROID STIMULATING HORMONE 4.75 uIU/mL (0.34-5.60)
[2021-05-03 12:36] LABS: FERRITIN 74.7 ng/mL (23.9-336.2)
[2021-05-03 12:53] LABS: % IRON SATURATION 52 % (20-50); ALBUMIN 3.9 g/dL (3.2-5.5); ALBUMIN/GLOBULIN RATIO 1.4 (1.0-2.2); ALKALINE PHOSPHATASE 56 IU/L (42-121); ALT ALANINE AMINOTRANSFERASE 16 IU/L (10-60); AST ASPARTATE AMINOTRANSFERASE 15 IU/L (10-42); BILIRUBIN,TOTAL 0.7 mg/dL (0.2-1.0); BUN - BLOOD UREA NITROGEN 21 mg/dL (6-20); CARBON DIOXIDE - CO2 29 mmol/L (21-32); CHLORIDE 104 mmol/L (101-111); CHOL/HDL RATIO 3.2 (<5.0); CHOLESTEROL 152 mg/dL; CREATININE 0.9 mg/dL (0.6-1.2); GFR - MDRD 80 (>89); GLUCOSE 100 mg/dL (70-100); HDL CHOLESTEROL 47 mg/dL; IRON 138 ug/dL (45-182); LDL CHOLESTEROL,CALCULATED 91 mg/dL; LDL/HDL RATIO 1.9 (<3.6); POTASSIUM 4.3 mmol/L (3.5-5.0); SODIUM 139 mmol/L (135-145); TOTAL IRON BINDING CAPACITY 267 ug/dL (250-450); TOTAL PROTEIN 6.6 g/dL (6.7-8.2); TRANSFERRIN 191 mg/dL (180-329); TRIGLYCERIDES 71 mg/dL; VLDL CHOLESTEROL 14 mg/dL
[2021-05-03 12:57] LABS: ESTIMATED AVERAGE GLUCOSE 105 mg/dL (70-100); HEMOGLOBIN A1c% 5.3 % (4.27-6.07)
[2021-05-03 18:57] LABS: CREATININE,URINE 138.4 mg/dL; MICROALBUM/CREATININE RATIO,UR 3.6 ug/mg (<30.0); MICROALBUMIN,URINE 0.5 mg/dL (0-300.0)
== END 2021-05-03 23:59 | disposition home or self-care (01) ==
LOC: LAB.WCP 08:00
PROVIDERS: ATTEND Internal Medicine
DX: I10 Essential (primary) hypertension (principal); E78.5 Hyperlipidemia, unspecified; R73.9 Hyperglycemia, unspecified; R19.4 Change in bowel habit; C43.9 Malignant melanoma of skin, unspecified
CPT/HCPCS: 36415; 80053; 80061; 82043; 82570; 82728; 83036; 83540; 83721; 84443; 84466; 85025

== ENCOUNTER 2022-03-30 10:13 | Outpatient (CLI) | payer MEDICARE, OTHER ==
[2022-03-30 12:27] LABS: ALBUMIN 4.1 g/dL (3.2-5.5); ALBUMIN/GLOBULIN RATIO 1.5 (1.0-2.2); BILIRUBIN,TOTAL 0.5 mg/dL (0.2-1.0); CALCIUM 9.2 mg/dL (8.5-10.3); CREATININE 1.1 mg/dL (0.6-1.2); POTASSIUM 3.9 mmol/L (3.5-5.0); TOTAL PROTEIN 6.9 g/dL (6.7-8.2)
[2022-03-30 12:30] LABS: BASOPHILS # (AUTO) 0.1 10^3/uL (0.0-0.1); BASOPHILS % (AUTO) 0.9 %; EOSINOPHILS # (AUTO) 0.1 10^3/uL (0.0-0.7); EOSINOPHILS % (AUTO) 1.7 %; HCT - HEMATOCRIT 46.3 % (42.0-52.0); HGB - HEMOGLOBIN 15.3 g/dL (14.0-18.0); LYMPHOCYTES # (AUTO) 1.5 10^3/uL (1.5-3.5); LYMPHOCYTES % (AUTO) 19.8 %; MEAN CORPUSCULAR HEMOGLOBIN 31.8 pg (27.0-31.0); MEAN CORPUSCULAR VOLUME 96.3 fL (80.0-94.0); MEAN PLATELET VOLUME 9.5 fL (7.4-11.4); MONOCYTES # (AUTO) 0.6 10^3/uL (0.0-1.0); MONOCYTES % (AUTO) 8.1 %; NEUTROPHILS # (AUTO) 5.3 10^3/uL (1.5-6.6); PLT - PLATELET COUNT 293 10^3/uL (130-450); RED BLOOD COUNT 4.81 10^6/uL (4.70-6.10); RED CELL DISTRIBUTION WIDTH 12.2 % (12.0-15.0); WHITE BLOOD COUNT 7.7 x10^3/uL (4.8-10.8)
[2022-03-30 12:49] LABS: THYROID STIMULATING HORMONE 3.81 uIU/mL (0.34-5.60)
== END 2022-03-30 10:14 | disposition home or self-care (01) ==
LOC: LAB.N 10:13
PROVIDERS: ATTEND Internal Medicine
DX: I10 Essential (primary) hypertension (principal); K59.09 Other constipation
CPT/HCPCS: 36415; 80053; 84443; 85025

== ENCOUNTER 2022-06-13 12:40 | Emergency (ER) | payer MEDICARE, OTHER ==
--- NOTE | 2022-06-13 13:18 | ED Physician Documentation ---
History of Present Illness - Stated complaint Stated Complaint: CP/ABD PX/LIGHTHEAD - Chief complaint Chief Complaint: Cardiac - History obtained from History obtained from: Patient - History of Present Illness Pain level max: 1 Pain level now: 1 - Additonal information Additional information: Patient is an 86-year-old male who presents to the emergency department in stating that he has left chest wall pain intermittently over the past several weeks. Feels like where his pacemaker battery is. It lasts for a few minutes at a time and then resolves. He states that he also had some lower abdominal cramping earlier today. This is since resolved as well. He states that his urine was "black" this morning. No fevers. No chills. No cough. No congestion. The pain was in the lower abdomen. He states he feels normal now. His states that he was lightheaded earlier today as well. Review of Systems Constitutional: denies: Fever, Chills Respiratory: denies: Cough : denies: Dysuria, Frequency, Hesitancy Skin: denies: Rash Musculoskeletal: denies: Neck pain, Back pain Neurologic: denies: Headache PD PAST MEDICAL HISTORY - Past Medical History Cardiovascular: Pulmonary embolism Respiratory: Asthma GI: GERD : Other Psych: None Musculoskeletal: Osteoarthritis Derm: None, Other (Melanoma) - Past Surgical History Past Surgical History: Yes General: Appendectomy HEENT: Cataracts Derm: Skin cancer surgery - Present Medications Home Medications: Ambulatory Orders Medication Instructions Recorded Confirmed Carboxymethylcellulose Sodium 1 drops EACHEYE PRN PRN 09/28/18 09/28/18 [Refresh Tears] Fluticasone 44 Mcg [Flovent] 2 puffs INH BID 09/28/18 09/28/18 Fluticasone [Flonase] 1 spray TRICIA BID 09/28/18 09/28/18 Aspirin [Aspirin EC] 81 mg PO DAILY #30 tablet. 09/29/18 Nitroglycerin [Nitrostat] 0.4 mg SL Q5MIN PRN #100 tab.subl 09/29/18 Amox/Clav 875/125 [Augmentin] 1 tab PO Q12H #20 tablet 06/13/22 - Allergies Allergies/Adverse Reactions: Allergies Allergy/AdvReac Type Severity Reaction Status Date / Time pneumococcal vaccine Allergy Hives Verified 06/13/22 12:54 [From Prevnar 13 (PF)] - Social History Does the pt smoke?: No Smoking Status: Never smoker Does the pt drink ETOH?: Yes Does the pt have substance abuse?: No - Immunizations Immunizations are current?: Yes - POLST Patient has POLST: No PD ED PE NORMAL - Vitals Vital signs reviewed: Yes - General General: Alert and oriented X 3 - HEENT HEENT: PERRL, Moist mucous membranes, Pharynx benign - Neck Neck: Supple, no meningeal sign - Cardiac Cardiac: RRR, No murmur, Strong equal pulses - Respiratory Respiratory: No respiratory distress, Clear bilaterally - Abdomen Abdomen: Soft, Non tender, Non distended - Back Back: No spinal TTP - Derm Derm: Warm and dry - Extremities Extremities: No edema, No calf tenderness / cord - Neuro Neuro: Alert and oriented X 3 - Psych Psych: Normal mood, Normal affect Results - Vitals Vitals: Vital Signs - 24 hr 06/13/22 06/13/22 06/13/22 12:49 13:19 15:16 Temperature 36.7 C Heart Rate 83 75 68 Respiratory 15 24 24 Rate Blood Pressure 144/68 H 146/78 H 154/66 H O2 Saturation 99 96 100 06/13/22 17:05 Temperature Heart Rate 64 Respiratory 15 Rate Blood Pressure 124/75 O2 Saturation 99 Oxygen O2 Source Room air - EKG (time done) 1246 Rate: Rate (enter#) (78) Rhythm: Paced - Labs Labs: Laboratory Tests 06/13/22 06/13/22 06/13/22 13:15 13:15 13:15 WBC 9.3 RBC 5.45 Hgb 16.5 Hct 50.3 MCV 92.3 MCH 30.3 MCHC 32.8 RDW 13.4 Plt Count 193 MPV 9.9 Neut # (Auto) 7.5 H Lymph # (Auto) 0.6 L [place] # (Auto) 1.2 H Eos # (Auto) 0.0 Baso # (Auto) 0.0 Absolute Nucleated RBC 0.00 Nucleated RBC % 0.0 Sodium 137 Potassium 4.2 Chloride 96 L Carbon Dioxide 28 Anion Gap 13.0 BUN 26 H Creatinine 1.0 Estimated GFR (MDRD) 71 L Glucose 108 H Calcium 9.2 Total Bilirubin 1.9 H AST 72 H ALT 84 H Alkaline Phosphatase 392 H Troponin I High Sens 26.5 H* Total Protein 5.8 L Albumin 2.7 L Globulin 3.1 Albumin/Globulin Ratio 0.9 L Lipase 37 Urine Color Urine Clarity Urine pH Ur Specific [place] Urine Protein Urine Glucose (UA) Urine Ketones Urine Occult Blood Urine Nitrite Urine Bilirubin Urine Urobilinogen Ur Leukocyte Esterase Urine RBC Urine WBC Ur Squamous Epith Cells Urine Bacteria Ur Microscopic Review Urine Culture Comments Nasal Adenovirus (PCR) Nasal B. parapertussis DNA (PCR) Nasal Coronavir 229E PCR Nasal Coronavir HKU1 PCR Nasal Coronavir NL63 PCR Nasal Coronavir OC43 PCR Nasal Enterovir/Rhinovir PCR Nasal Influenza B PCR Nasal Influenza A PCR Nasal Parainfluen 1 PCR Nasal Parainfluen 2 PCR Nasal Parainfluen 3 PCR Nasal Parainfluen 4 PCR Nasal RSV (PCR) Nasal B.pertussis DNA PCR Nasal C.pneumoniae (PCR) Tricia Human Metapneumo PCR Nasal M.pneumoniae (PCR) Nasal SARS-CoV-2 (PCR) 06/13/22 06/13/22 13:32 15:38 WBC RBC Hgb Hct MCV MCH MCHC RDW Plt Count MPV Neut # (Auto) Lymph # (Auto) [place] # (Auto) Eos # (Auto) Baso # (Auto) Absolute Nucleated RBC Nucleated RBC % Sodium Potassium Chloride Carbon Dioxide Anion Gap BUN Creatinine Estimated GFR (MDRD) Glucose Calcium Total Bilirubin AST ALT Alkaline Phosphatase Troponin I High Sens Total Protein Albumin Globulin Albumin/Globulin Ratio Lipase Urine Color DARK YELLOW Urine Clarity HAZY Urine pH 5.5 Ur Specific [place] 1.020 Urine Protein 30 H Urine Glucose (UA) NEGATIVE Urine Ketones TRACE Urine Occult Blood NEGATIVE Urine Nitrite POSITIVE H Urine Bilirubin MODERATE H Urine Urobilinogen 1 (NORMAL) Ur Leukocyte Esterase TRACE H Urine RBC 0-5 Urine WBC 0-3 Ur Squamous Epith Cells RARE Squamous Urine Bacteria Rare Ur Microscopic Review INDICATED Urine Culture Comments INDICATED Nasal Adenovirus (PCR) NOT DETECTED Nasal B. parapertussis DNA (PCR) NOT DETECTED Nasal Coronavir 229E PCR NOT DETECTED Nasal Coronavir HKU1 PCR NOT DETECTED Nasal Coronavir NL63 PCR NOT DETECTED Nasal Coronavir OC43 PCR NOT DETECTED Nasal Enterovir/Rhinovir PCR NOT DETECTED Nasal Influenza B PCR NOT DETECTED Nasal Influenza A PCR NOT DETECTED Nasal Parainfluen 1 PCR NOT DETECTED Nasal Parainfluen 2 PCR NOT DETECTED Nasal Parainfluen 3 PCR NOT DETECTED Nasal Parainfluen 4 PCR NOT DETECTED Nasal RSV (PCR) NOT DETECTED Nasal B.pertussis DNA PCR NOT DETECTED Nasal C.pneumoniae (PCR) NOT DETECTED Tricia Human Metapneumo PCR NOT DETECTED Nasal M.pneumoniae (PCR) NOT DETECTED Nasal SARS-CoV-2 (PCR) NOT DETECTED - Rads (name of study) CT abdomen pelvis Radiology: Final report received, See rad report Right upper quadrant ultrasound Radiology: Final report received, See rad report PD Medical Decision Making - ED course Complexity details: reviewed results, re-evaluated patient, considered differential, d/w patient, d/w family ED course: Patient is well-appearing, nontoxic. Afebrile. No evidence of sepsis. CBC does not show any significant abnormalities. His CMP shows a mildly elevated bilirubin at 1.9. Mild elevation of his AST and ALT as well as alkaline phosphatase. Total protein is low. Mildly elevated BUN as well. Urinalysis shows possible UTI. His respiratory PCR is negative. His chest x-ray does not show any acute abnormalities. His abdomen pelvis CT show sigmoid diverticulosis with what appears to be inflammatory changes reflecting diverticulitis. There is mild to moderate free fluid in the pelvis, but no evidence of organized a bscess or obstruction. No hydronephrosis in the kidneys. Has moderate bibasilar pleural effusions. His ultrasound of his abdomen shows a heterogeneous liver slightly enlarged at 19.4 cm. There is gallbladder wall thickening but no pericholecystic fluid or cholelithiasis. Initially there was no given history of melanoma, but his states that he has an appointment with his oncologist coming up for his melanoma. With the fluid in the abdomen, pleural effusions and changes in the liver, would be concern for possible metastases, though there is no convincing metastases on CT scan today. May benefit from a PET scan. We will place on antibiotics for the UTI and diverticulitis. We will have him follow-up with his doctor as scheduled. He sees his regular doctor in 2 days. He sees his oncologist next week. Patient and family counseled regarding signs and symptoms for which I believe and urgent re-evaluation would be necessary. Patient with good understanding of and agreement to plan and is comfortable going home at this time This document was made in part using voice recognition software. While efforts are made to proofread this document, sound alike and grammatical errors may occur. Departure - Departure Disposition: 01 Home, Self Care Clinical Impression: Diverticulitis, Elevated LFTs Condition: Good Instructions: ED Diverticulitis Follow-Up: Arianna Reeder MD [Physician No Access] - Matt Mims MD [Primary Care Provider] - Within 1 week Prescriptions: Amox/Clav 875/125 [Augmentin] 1 tab PO Q12H #20 tablet Comments: Please follow-up with his doctor within the next week. His liver function tests are elevated today. These will need to be rechecked with his doctor within the next week. It could be related to his melanoma as well if there are metastases to the liver. Please take all antibiotics until gone. I have included his CT scan and ultrasound scan reports below. The prescriptions were sent to the [facility] pharmacy. FINDINGS: Lower thorax: Moderate bilateral pleural effusions greater on the right. Cardiac pacer wires present. Liver: Normal in size and attenuation. No contour deformity present. Biliary system: No calcified cholelithiasis or pericholecystic inflammation. No evidence of bile duct dilatation. Pancreas: Unremarkable without mass or inflammation evident. Spleen: Normal in size and density. Adrenals: Normal morphology and density. Reproductive system: Unremarkable as visualized. Urinary system: Normal renal size and attenuation. No renal calculi, hydronephrosis, or solid mass present. Urinary bladder unremarkable. Bilateral peripelvic simple cysts are smaller than the prior exam. No hydronephrosis Gastrointestinal system: Advanced sigmoid diverticulosis. Suggestion of inflammatory change noted proximally. There is moderate free fluid in the pelvis. No evidence of organized abscess Appendix: No findings to suggest acute appendicitis. Peritoneal spaces: No mesenteric or retroperitoneal adenopathy. No free air. No free fluid. Vasculature: The IVC, aorta and iliac vasculature are unremarkable. Musculoskeletal: Normal bone mineralization. No acute fractures. Abdominal wall intact without evidence of ventral or inguinal hernias. Degenerative disc disease and arthropathy in the lower lumbar spine IMPRESSION: Advanced sigmoid diverticulosis and suggestion of inflammatory changes in the proximal sigmoid reflect mild diverticulitis. Moderate free fluid in the pelvis without evidence of organized abscess or obstruction. Bilateral cortical enhancement peripelvic renal cysts are smaller than the prior exam. No hydronephrosis Moderate bibasilar pleural effusions, right greater than left FINDINGS: Liver: Heterogenous liver is slightly enlarged. No focal mass lesion. Gallbladder: Sonolucent without gallbladder wall thickening measuring up to 4.6 mm it. No pericholecystic fluid Common Bile Duct: 7.8 mm. Pancreas: Unremarkable as visualized. Right Kidney: Right renal cyst measures 3.0 x 2.2 x 3.0 cm and 2.3 x 2.0 x 2.3 cm respectively. No hydronephrosis. Incidental right pleural effusion. IMPRESSION: Heterogenous liver is slightly enlarged at 19.4 cm. Differential would include hepatic fatty infiltration and hepatic cirrhosis Gallbladder wall thickening without pericholecystic fluid or cholelithiasis. Discharge Date/Time: 06/13/22 18:29
[2022-06-13 13:25] LABS: BASOPHILS % (AUTO) 0.1 %; EOSINOPHILS % (AUTO) 0.1 %; HCT - HEMATOCRIT 50.3 % (42.0-52.0); HGB - HEMOGLOBIN 16.5 g/dL (14.0-18.0); LYMPHOCYTES # (AUTO) 0.6 10^3/uL (1.5-3.5); LYMPHOCYTES % (AUTO) 6.2 %; MEAN CORPUSCULAR HEMOGLOBIN 30.3 pg (27.0-31.0); MEAN CORPUSCULAR HGB CONC 32.8 g/dL (32.0-36.0); MEAN CORPUSCULAR VOLUME 92.3 fL (80.0-94.0); MEAN PLATELET VOLUME 9.9 fL (7.4-11.4); MONOCYTES # (AUTO) 1.2 10^3/uL (0.0-1.0); MONOCYTES % (AUTO) 12.7 %; NEUTROPHILS # (AUTO) 7.5 10^3/uL (1.5-6.6); NEUTROPHILS % (AUTO) 80.5 %; PLT - PLATELET COUNT 193 10^3/uL (130-450); RED BLOOD COUNT 5.45 10^6/uL (4.70-6.10); RED CELL DISTRIBUTION WIDTH 13.4 % (12.0-15.0); WHITE BLOOD COUNT 9.3 x10^3/uL (4.8-10.8)
[2022-06-13] MEDS ORDERED: SODIUM CHLORIDE 0.9% 1,000 ML IV STA (13:33)
--- NOTE | 2022-06-13 13:37 | XRAY Report ---
PROCEDURE: Chest 1 View X-Ray INDICATIONS: Chest Pain TECHNIQUE: One view of the chest was acquired. COMPARISON: None. FINDINGS: Surgical changes and devices: Left chest wall pacemaker leads are in the region of right atrium and right ventricle. Lungs and pleura: No pleural effusions or pneumothorax. There is mild pulmonary vascular congestion. No definite focal infiltrate. Mediastinum: Mediastinal contours appear normal. Heart size is normal. Bones and chest wall: No suspicious bony lesions. Overlying soft tissues appear unremarkable. IMPRESSION: Mild congestion. No focal infiltrate, pleural effusion or pneumothorax. Reviewed by: Joel Hardy MD on 06/13/2022 1:35 PM [facility] Approved by: Joel Hardy MD on 06/13/2022 1:35 PM [facility] Station ID: [id number]
[2022-06-13 13:38] LABS: ALBUMIN 2.7 g/dL (3.2-5.5); ALBUMIN/GLOBULIN RATIO 0.9 (1.0-2.2); BILIRUBIN,TOTAL 1.9 mg/dL (0.2-1.0); CALCIUM 9.2 mg/dL (8.5-10.3); POTASSIUM 4.2 mmol/L (3.5-5.0); TOTAL PROTEIN 5.8 g/dL (6.7-8.2)
[2022-06-13 14:42] LABS: B. PARAPERTUSSIS- RESP PCR PAN NOT DETECTED; B. PERTUSSIS- RESP PCR PANEL NOT DETECTED; C. PNEUMONIAE- RESP PCR PANEL NOT DETECTED; CORONAVIRUS 229E-RESP PCR NOT DETECTED; CORONAVIRUS HKU1-RESP PCR NOT DETECTED; CORONAVIRUS NL63-RESP PCR NOT DETECTED; CORONAVIRUS OC43-RESP PCR NOT DETECTED; HUMAN METAPNEUMOVIRUS NOT DETECTED; INFLUENZA A- RESP PCR PANEL NOT DETECTED; INFLUENZA B - RESP PCR PANEL NOT DETECTED; M. PNEUMONIAE- RESP PCR PANEL NOT DETECTED; PARAINFLUENZA VIRUS 1 NOT DETECTED; PARAINFLUENZA VIRUS 2 NOT DETECTED; PARAINFLUENZA VIRUS 3 NOT DETECTED; PARAINFLUENZA VIRUS 4 NOT DETECTED; RHINOVIRUS/ENTEROVIRUS NOT DETECTED; RSV- RESP PCR PANEL NOT DETECTED; SARS-CoV-2 -RESP PCR PANEL NOT DETECTED
[2022-06-13] MEDS ORDERED: iohexoL-300 100 ML VIAL ONE (15:27)
[2022-06-13] MEDS ORDERED: iohexoL-300 100 ML VIAL IVP ONE (15:42)
[2022-06-13 15:46] LABS: GLUCOSE, URINE (UA) NEGATIVE (NEGATIVE); KETONES,URINE (UA) TRACE mg/dL (NEGATIVE); LEUKOCYTE ESTERASE, URINE TRACE (NEGATIVE); NITRITE,URINE POSITIVE (NEGATIVE); OCCULT BLOOD,URINE NEGATIVE (NEGATIVE); PH,URINE 5.5 PH (5.0-7.5); PROTEIN,URINE 30 mg/dL (NEGATIVE); UROBILINOGEN,URINE 1 (NORMAL) E.U./dL (NORMAL)
[2022-06-13 15:49] LABS: BILIRUBIN,URINE MODERATE (NEGATIVE); CLARITY,URINE HAZY (CLEAR); ICTOTEST,URINE POSITIVE
[2022-06-13 15:59] LABS: BACTERIA,URINE Rare /HPF (None Seen); RBC,URINE 0-5 /HPF (0-5); SQUAMOUS EPITHELIAL CELL,UR RARE Squamous (<= Few); WBC,URINE 0-3 /HPF (0-3)
--- NOTE | 2022-06-13 16:03 | CT Report ---
PROCEDURE: CT abdomen pelvis with contrast INDICATIONS: Diffuse abdominal pain CONTRAST: 100mL Omni 300 TECHNIQUE: After the administration of contrast, 5 mm thick sections acquired from the diaphragms to the symphys is. 5 mm thick coronal and sagittal reformats were acquired. For radiation dose reduction, the foll owing was used: automated exposure control, adjustment of mA and/or kV according to patient size. COMPARISON: 05/16/2019 FINDINGS: Lower thorax: Moderate bilateral pleural effusions greater on the right. Cardiac pacer wires present. Liver: Normal in size and attenuation. No contour deformity present. Biliary system: No calcified cholelithiasis or pericholecystic inflammation. No evidence of bile du ct dilatation. Pancreas: Unremarkable without mass or inflammation evident. Spleen: Normal in size and density. Adrenals: Normal morphology and density. Reproductive system: Unremarkable as visualized. Urinary system: Normal renal size and attenuation. No renal calculi, hydronephrosis, or solid mass p resent. Urinary bladder unremarkable. Bilateral peripelvic simple cysts are smaller than the prior e xam. No hydronephrosis Gastrointestinal system: Advanced sigmoid diverticulosis. Suggestion of inflammatory change noted pro ximally. There is moderate free fluid in the pelvis. No evidence of organized abscess Appendix: No findings to suggest acute appendicitis. Peritoneal spaces: No mesenteric or retroperitoneal adenopathy. No free air. No free fluid. Vasculature: The IVC, aorta and iliac vasculature are unremarkable. Musculoskeletal: Normal bone mineralization. No acute fractures. Abdominal wall intact without pushpa dence of ventral or inguinal hernias. Degenerative disc disease and arthropathy in the lower lumbar s pine IMPRESSION: Advanced sigmoid diverticulosis and suggestion of inflammatory changes in the proximal sigmoid reflec t mild diverticulitis. Moderate free fluid in the pelvis without evidence of organized abscess or obs truction. Bilateral cortical enhancement peripelvic renal cysts are smaller than the prior exam. No hydronephro sis Moderate bibasilar pleural effusions, right greater than left Reviewed by: Feliberto Mendoza MD on 06/13/2022 3:02 PM [facility] Approved by: Feliberto Mendoza MD on 06/13/2022 3:02 PM [facility] Station ID: [id number]
[2022-06-13 17:06] VITALS: BP 124/75
--- NOTE | 2022-06-13 17:40 | Ultrasound Report ---
PROCEDURE: Abdomen Limited, ultrasound INDICATIONS: elevated LFTs TECHNIQUE: Real-time focused scanning was performed of the abdomen, with image documentation. COMPARISON: CT abdomen pelvis 06/13/2022 FINDINGS: Liver: Heterogenous liver is slightly enlarged. No focal mass lesion. Gallbladder: Sonolucent without gallbladder wall thickening measuring up to 4.6 mm it. No pericholec ystic fluid Common Bile Duct: 7.8 mm. Pancreas: Unremarkable as visualized. Right Kidney: Right renal cyst measures 3.0 x 2.2 x 3.0 cm and 2.3 x 2.0 x 2.3 cm respectively. No hy dronephrosis. Incidental right pleural effusion. IMPRESSION: Heterogenous liver is slightly enlarged at 19.4 cm. Differential would include hepatic fatty infiltra tion and hepatic cirrhosis Gallbladder wall thickening without pericholecystic fluid or cholelithiasis. Reviewed by: Feliberto Mendoza MD on 06/13/2022 4:39 PM [facility] Approved by: Feliberto Mendoza MD on 06/13/2022 4:39 PM [facility] Station ID: [id number]
[2022-06-13] MEDS ORDERED: AMOX/CLAV 875 MG/125 MG TABLET PO STA (18:12)
== END 2022-06-13 18:29 | disposition home or self-care (01) ==
LOC: ED 12:40
DX: K57.32 Diverticulitis of large intestine without perforation or abscess without bleeding (principal); R79.89 Other specified abnormal findings of blood chemistry; K21.9 Gastro-esophageal reflux disease without esophagitis; Z20.822 Contact with and (suspected) exposure to COVID-19; Z79.82 Long term (current) use of aspirin; Z86.711 Personal history of pulmonary embolism; Z79.51 Long term (current) use of inhaled steroids
CPT/HCPCS: 36415; 71045; 74177; 76705; 80053; 81001; 83690; 84484; 85025; 87086; 87633; 93005; 96360; 99284; A9270; Q9967; 81003

== ENCOUNTER 2022-06-24 12:29 | Outpatient (CLI) | payer MEDICARE, OTHER | END 2022-06-24 12:30 | disposition left against medical advice (07) | LOC: EMS 12:29 | DX: R53.1 Weakness (principal); R06.09 Other forms of dyspnea ==

== ENCOUNTER 2022-07-07 17:02 | Outpatient (CLI) | payer MEDICARE, OTHER | END 2022-07-07 17:03 | disposition critical access hospital (66) | LOC: EMS 17:02 | DX: R50.9 Fever, unspecified (principal); R53.1 Weakness | CPT/HCPCS: A0425; A0429 ==

== ENCOUNTER 2022-07-07 17:16 | Emergency (ER) | payer MEDICARE, OTHER ==
--- NOTE | 2022-07-07 17:22 | ED Physician Documentation ---
PD HPI URI - Stated complaint Stated Complaint: FEVER - History obtained from History obtained from: Patient (Notable dementia. He is able to give information in the present about his symptoms right now it is about all.), Family, EMS (The patient has a history of dementia and so information largely was from his translated through EMS. Report is fever today.) - History of Present Illness Timing - onset: Today Timing details: Abrupt onset (EMS reports the told him the patient developed a fever today. He did not seem ill otherwise. He had been treated recently for UTI.) Associated symptoms: Fever (to 101 at home.), Chills (seems shakier than baseline.). No: Nasal congestion, Dry cough, NVD Similar symptoms before: Diagnosis (UTI) Recently seen: Admitted (had UTI and was treated with Amox. Was not improving and seen at [place] and admitted for 6 days. Discharged about 2 weeks ago and was doing okay, per .) Review of Systems Unable to obtain: Dementia (he can give current symptoms list), Other (info from /Medics) Constitutional: reports: Fever Nose: denies: Rhinorrhea / runny nose, Congestion Cardiac: denies: Chest pain / pressure Respiratory: denies: Dyspnea GI: denies: Abdominal Pain, Vomiting Skin: denies: Rash PD PAST MEDICAL HISTORY - Past Medical History Cardiovascular: Pulmonary embolism Respiratory: Asthma Neuro: Dementia GI: GERD : Other Psych: None Musculoskeletal: Osteoarthritis Derm: None, Other (Melanoma) - Past Surgical History Past Surgical History: Yes General: Appendectomy HEENT: Cataracts Derm: Skin cancer surgery - Present Medications Home Medications: Ambulatory Orders Medication Instructions Recorded Confirmed Carboxymethylcellulose Sodium 1 drops EACHEYE PRN PRN 09/28/18 09/28/18 [Refresh Tears] Fluticasone 44 Mcg [Flovent] 2 puffs INH BID 09/28/18 09/28/18 Fluticasone [Flonase] 1 spray TRICIA BID 09/28/18 09/28/18 Aspirin [Aspirin EC] 81 mg PO DAILY #30 tablet. 09/29/18 Nitroglycerin [Nitrostat] 0.4 mg SL Q5MIN PRN #100 tab.subl 09/29/18 Amox/Clav 875/125 [Augmentin] 1 tab PO Q12H #20 tablet 06/13/22 - Allergies Allergies/Adverse Reactions: Allergies Allergy/AdvReac Type Severity Reaction Status Date / Time pneumococcal vaccine Allergy Hives Verified 07/07/22 17:27 [From Prevnar 13 (PF)] - Social History Does the pt smoke?: No Smoking Status: Never smoker Does the pt drink ETOH?: Yes Does the pt have substance abuse?: No - Immunizations Immunizations are current?: Yes - POLST Patient has POLST: No PD ED PE NORMAL - Vitals Vital signs reviewed: Yes - General General: Alert and oriented X 3, No acute distress, Well developed/nourished - HEENT HEENT: Atraumatic, Moist mucous membranes, Pharynx benign - Neck Neck: Supple, no meningeal sign, No adenopathy - Cardiac Cardiac: RRR, No murmur, Other (pacemaker noted left chestwall. ) - Respiratory Respiratory: Clear bilaterally - Abdomen Abdomen: Soft, Non tender, Non distended - Derm Derm: Normal color, Warm and dry, No rash, Other (no skin sores noted on heels nor sacral by palpation. ) - Extremities Extremities: Normal ROM s pain, No edema, No calf tenderness / cord - Neuro Neuro: No motor deficit, No sensory deficit. No: Alert and oriented X 3 Results - Vitals Vitals: Vital Signs - 24 hr 07/07/22 07/07/22 07/07/22 17:24 18:00 19:42 Temperature 37.7 C 37.6 C Heart Rate 88 81 76 Respiratory 20 16 16 Rate Blood Pressure 190/85 H 162/90 H 149/66 H O2 Saturation 95 99 99 Oxygen O2 Source Room air - Labs Labs: Laboratory Tests 07/07/22 07/07/22 07/07/22 17:21 17:40 17:52 WBC 8.3 RBC 4.06 L Hgb 12.2 L Hct 39.5 L MCV 97.3 H MCH 30.0 MCHC 30.9 L RDW 16.4 H Plt Count 206 MPV 8.9 Neut # (Auto) 6.6 Lymph # (Auto) 0.6 L [place] # (Auto) 0.8 Eos # (Auto) 0.1 Baso # (Auto) 0.1 Absolute Nucleated RBC 0.00 Nucleated RBC % 0.0 Sodium Potassium Chloride Carbon Dioxide Anion Gap BUN Creatinine Estimated GFR (MDRD) Glucose Lactic Acid Calcium Magnesium Total Bilirubin AST ALT Alkaline Phosphatase C-Reactive Protein Total Protein Albumin Globulin Albumin/Globulin Ratio Lipase Prostate Specific Ag Urine Color BROWN Urine Clarity HAZY Urine pH 6.5 Ur Specific [place] 1.015 Urine Protein TRACE Urine Glucose (UA) NEGATIVE Urine Ketones NEGATIVE Urine Occult Blood NEGATIVE Urine Nitrite NEGATIVE Urine Bilirubin NEGATIVE Urine Urobilinogen 1 (NORMAL) Ur Leukocyte Esterase NEGATIVE Urine RBC 0-5 Urine WBC 0-3 Ur Squamous Epith Cells NONE SEEN Urine Bacteria Rare Ur Microscopic Review INDICATED Urine Culture Comments NOT INDICATED Nasal Adenovirus (PCR) NOT DETECTED Nasal B. parapertussis DNA (PCR) NOT DETECTED Nasal Coronavir 229E PCR NOT DETECTED Nasal Coronavir HKU1 PCR NOT DETECTED Nasal Coronavir NL63 PCR NOT DETECTED Nasal Coronavir OC43 PCR NOT DETECTED Nasal Enterovir/Rhinovir PCR NOT DETECTED Nasal Influenza B PCR NOT DETECTED Nasal Influenza A PCR NOT DETECTED Nasal Parainfluen 1 PCR NOT DETECTED Nasal Parainfluen 2 PCR NOT DETECTED Nasal Parainfluen 3 PCR NOT DETECTED Nasal Parainfluen 4 PCR NOT DETECTED Nasal RSV (PCR) NOT DETECTED Nasal B.pertussis DNA PCR NOT DETECTED Nasal C.pneumoniae (PCR) NOT DETECTED Tricia Human Metapneumo PCR NOT DETECTED Nasal M.pneumoniae (PCR) NOT DETECTED Nasal SARS-CoV-2 (PCR) NOT DETECTED 07/07/22 07/07/22 07/07/22 17:52 17:52 17:52 WBC RBC Hgb Hct MCV MCH MCHC RDW Plt Count MPV Neut # (Auto) Lymph # (Auto) [place] # (Auto) Eos # (Auto) Baso # (Auto) Absolute Nucleated RBC Nucleated RBC % Sodium 134 L Potassium 4.1 Chloride 101 Carbon Dioxide 27 Anion Gap 6.0 BUN 24 H Creatinine 1.0 Estimated GFR (MDRD) 71 L Glucose 100 Lactic Acid 1.7 Calcium 7.9 L Magnesium 2.1 Total Bilirubin 2.1 H AST 84 H ALT 70 H Alkaline Phosphatase 782 H C-Reactive Protein 13.3 H Total Protein 5.3 L Albumin 2.3 L Globulin 3.0 Albumin/Globulin Ratio 0.8 L Lipase 87 H Prostate Specific Ag 0.359 Urine Color Urine Clarity Urine pH Ur Specific [place] Urine Protein Urine Glucose (UA) Urine Ketones Urine Occult Blood Urine Nitrite Urine Bilirubin Urine Urobilinogen Ur Leukocyte Esterase Urine RBC Urine WBC Ur Squamous Epith Cells Urine Bacteria Ur Microscopic Review Urine Culture Comments Nasal Adenovirus (PCR) Nasal B. parapertussis DNA (PCR) Nasal Coronavir 229E PCR Nasal Coronavir HKU1 PCR Nasal Coronavir NL63 PCR Nasal Coronavir OC43 PCR Nasal Enterovir/Rhinovir PCR Nasal Influenza B PCR Nasal Influenza A PCR Nasal Parainfluen 1 PCR Nasal Parainfluen 2 PCR Nasal Parainfluen 3 PCR Nasal Parainfluen 4 PCR Nasal RSV (PCR) Nasal B.pertussis DNA PCR Nasal C.pneumoniae (PCR) Tricia Human Metapneumo PCR Nasal M.pneumoniae (PCR) Nasal SARS-CoV-2 (PCR) - Rads (name of study) chest xray Relevant Findings:: Prelim report reviewed, EMP independent interpretation of test (no noted infiltrates), See rad report PD Medical Decision Making - ED course Complexity details: reviewed old records (obtained discharge summary from [facility] from 06/16/22 admission there, with lab results as well. these were obtained by fax. ), reviewed results, considered differential, d/w family ( gives the main info due to patient dementia. ), d/w construction safety consultant (will contact [facility] at , care transition coordinator Oncology. ) Reviewed Lab Results: basic labs are good with normal white count. He is not neutropenic. CRp elevated at 13. PSA is in normal limits so not suggestive of prostatitis. His urinalyisis does not show any signs of infection. LFTs are elevated but similar to levels seen in discharge summary from [facility] from 06/16/22. Can get abdominal ultrasound toe ensure no acute gB abnormal. Respiratory viral PCR testing is negative for the viruses tested. No clear cause of infection at this time. The timing could suggest an immune response to the chemotherapy which is immunologic therapy and fever is listed as side effect. Will get U/S and results and then contact Oncology care transition coordinator for [facility] for advise on disposition. Drug Therapy Requiring Monitoring for Toxicity: his new chemo started a week ago at 400 mg and then increased to 600 mg 2 days ago is: Mektovi, an MEK inhibitor, generic binimetinib, and also Braftovi, a BRAF inhibitor, generic encorafenib. Both are part of a BRAF regimen particular for metastatic melanoma. These immunomodulator meds could cause febrile response. However will need to evaluate for infectious causes in general. Gets his oncology through [facility] at the . Departure - Departure Disposition: 01 Home, Self Care Clinical Impression: Metastatic melanoma, Status post chemotherapy Fever Qualifiers: Fever type: unspecified Qualified Code(s): R50.9 - Fever, unspecified Condition: Stable Record reviewed to determine appropriate education?: Yes Instructions: ED Fever Control Comments: Your symptoms could be caused by the increase of your chemo medications. After speaking to [facility] this evening, they are recommending that you reduce the dose back down to what you were taking yesterday. They will also reach out to you at 8:00 tomorrow morning to see how you are doing. At this time there is no clear source for your fever which is why it is presumed to be from the increase in your chemo medication. However we did obtain blood cultures which will grow out for the next couple of days to see if there is any infection in your bloodstream. If these are abnormal for any reason we will notify you immediately. Discharge Date/Time: 07/07/22 22:08
[2022-07-07] MEDS ORDERED: SODIUM CHLORIDE 0.9% 1,000 ML IV STA (17:32)
[2022-07-07] MEDS ORDERED: ACETAMINOPHEN 325 MG TABLET PO STA (17:32)
[2022-07-07 17:44] LABS: BILIRUBIN,URINE NEGATIVE (NEGATIVE); GLUCOSE, URINE (UA) NEGATIVE (NEGATIVE); KETONES,URINE (UA) NEGATIVE (NEGATIVE); LEUKOCYTE ESTERASE, URINE NEGATIVE (NEGATIVE); NITRITE,URINE NEGATIVE (NEGATIVE); OCCULT BLOOD,URINE NEGATIVE (NEGATIVE); PH,URINE 6.5 PH (5.0-7.5); PROTEIN,URINE TRACE mg/dL (NEGATIVE); UROBILINOGEN,URINE 1 (NORMAL) E.U./dL (NORMAL)
--- OUTSIDE RECORDS SUMMARY | 2022-07-07 17:45 | EXTERNAL MEDICAL SUMMARY RPT | Continuity of Care Document ---
:1935 Author Organization [facility] Address [address] [place] [address] Phone Care Team Providers Name Role Phone Unavailable Unavailable Unavailable Lucien Lan Unavailable Unavailable Allergies and Intolerances date description facility type (no date) pneumococcal 7-valent conjugate to [facility] (unknown) Encounters No information. Functional Status No information. Immunizations No information. Medications date description facility 2022-06-16 00:00 Apixaban [facility] 2022-06-16 00:00 Amlodipine [facility] 2022-06-16 00:00 Gabapentin [facility] Problems date description facility 2022-06-16 00:00 Sepsis [facility] 2022-06-16 00:00 Atrial fibrillation [facility] 2022-06-16 00:00 Urinary tract infection [facility] 2022-06-16 00:00 Confusion [facility] 2022-06-16 00:00 Elevated transaminase measurement [facility] 2022-06-16 00:00 Body mass index (BMI) of 22.0 to 22.9 i n adult [facility] 2022-06-16 00:00 Presence of cardiac pacemaker [facility] 2022-06-17 00:00 Primary hypertension [facility] 2022-06-17 00:00 Asthma [facility] 2022-06-17 00:00 Impaired cognition [facility] 2022-06-17 00:00 terminologist 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 use 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 therapy [facility] 2022-06-19 13:52 Sepsis, unspecified organism [facility] 2022-06-22 08:33 Sepsis, unspecified organism [facility] 2022-06-22 11:44 Sepsis, unspecified organism [facility] 2022-06-22 14:32 Sepsis, unspecified organism [facility] 2022-06-27 14:23 Sepsis, unspecified organism [facility] 2022-06-27 14:43 Sepsis, unspecified organism [facility] Procedures date description facility 2022-06-16 00:00 Computed tomography of head or brain wi [facility] contrast 2022-06-21 00:00 Gram Stain [facility] 2022-06-20 00:00 CT soft tissue neck w [facility] 2022-06-16 00:00 X-ray of chest, single view [facility] 2022-06-16 00:00 CT abdomen pelvis w [facility] 2022-06-17 00:00 US Abdomen limited [facility] 2022-06-16 00:00 CT chest w [facility] 2022-06-21 00:00 CT biopsy [facility] Results/Labs test date author facility value unit interpret ation Result panel 1 (unknown) (no date[facility]) Result panel 2 (unknown) (no date) (unknown[facility] Result panel 3 (unknown) (no date) (unknown[facility] Result panel 4 (unknown) (no date) (unknown[facility] Result panel 5 (unknown) (no date) (unknown[facility] Result panel 6 (unknown) (no date) (unknown[facility]) Result panel 7 (unknown) (no date) (unknown[facility] Result panel 8 (unknown) (no date) (unknown[facility] Result panel 9 (unknown) (no date) (unknown[facility]) Result panel 10 (unknown) (no date) (unknown[facility]) Result panel 11 (unknown) (no date) (unknown[facility]) Result panel 12 (unknown) (no date) (unknown[facility]) Result panel 13 (unknown) (no date) (unknown[facility] Result panel 14 (unknown) (no date) (unknown[facility]) Result panel 15 (unknown) (no date) (unknown[facility]) Result panel 16 (unknown) (no date) (unknown[facility]) Result panel 17 (unknown) (no date) (unknown[facility]) Result panel 18 (unknown) (no date) (unknown[facility]) Result panel 19 (unknown) (no date) (unknown[facility]) Result panel 20 (unknown) (no date) (unknown[facility]) Result panel 21 (unknown) (no date) (unknown[facility]) Result panel 22 (unknown) (no date) (unknown[facility]) Result panel 23 (unknown) (no date) (unknown[facility]) Result panel 24 (unknown) (no date) (unknown[facility]) Result panel 25 (unknown) (no date) (unknown[facility]) Result panel 26 (unknown) (no date) (unknown[facility]) Result panel 27 (unknown) (no date) (unknown[facility]) Result panel 28 (unknown) (no date) (unknown[facility]) Result panel 29 (unknown) (no date) (unknown[facility]) Result panel 30 (unknown) (no date) (unknown[facility]) Result panel 31 (unknown) (no date) (unknown[facility]) Result panel 32 (unknown) (no date) (unknown[facility]) Result panel 33 (unknown) (no date) (unknown[facility]) Result panel 34 (unknown) (no date) (unknown[facility]) Result panel 35 (unknown) (no date) (unknown[facility]) Result panel 36 (unknown) (no date) (unknown[facility]) Result panel 37 (unknown) (no date) (unknown[facility]) Result panel 38 (unknown) (no date) (unknown[facility]) Result panel 39 (unknown) (no date) (unknown[facility]) Result panel 40 (unknown) (no date) (unknown[facility]) Result panel 41 (unknown) (no date) (unknown[facility]) Result panel 42 (unknown) (no date) (unknown[facility]) Result panel 43 (unknown) (no date) (unknown[facility]) Result panel 44 (unknown) (no date) (unknown[facility]) Result panel 45 (unknown) (no date) (unknown[facility]) Result panel 46 (unknown) (no date) (unknown[facility]) Result panel 47 (unknown) (no date) (unknown[facility]) Result panel 48 (unknown) (no date) (unknown[facility]) Result panel 49 (unknown) (no date) (unknown[facility]) Result panel 50 (unknown) (no date) (unknown[facility]) Result panel 51 (unknown) (no date) (unknown[facility]) Result panel 52 (unknown) (no date) (unknown) [facility]) Result panel 53 (unknown) (no date) (unknown) [facility]) Result panel 54 (unknown) (no date) (unknown[facility]) Result panel 55 (unknown) (no date) (unknown[facility]) Result panel 56 (unknown) (no date) (unknown) [facility]) Result panel 57 (unknown) (no date) (unknown) [facility]) Result panel 58 (unknown) (no date) (unknown) [facility]) Result panel 59 (unknown) (no date) (unknown[facility]) Result panel 60 (unknown) (no date) (unknown[facility]) Result panel 61 (unknown) (no date) (unknown[facility]) Result panel 62 (unknown) (no date) (unknown[facility]) Result panel 63 (unknown) (no date) (unknown[facility]) Result panel 64 (unknown) (no date) (unknown[facility]) Result panel 65 (unknown) (no date) (unknown) [facility]) Result panel 66 (unknown) (no date) (unknown[facility]) Result panel 67 (unknown) (no date) (unknown[facility]) Result panel 68 (unknown) (no date) (unknown[facility]) Result panel 69 (unknown) (no date) (unknown[facility]) Result panel 70 (unknown) (no date) (unknown) [facility]) Result panel 71 (unknown) (no date) (unknown) [facility]) Result panel 72 (unknown) (no date) (unknown) [facility]) Result panel 73 (unknown) (no date) (unknown[facility]) Result panel 74 (unknown) (no date) (unknown[facility]) Result panel 75 (unknown) (no date) (unknown) [facility]) Result panel 76 (unknown) (no date) (unknown) [facility]) Result panel 77 (unknown) (no date) (unknown) [facility]) Result panel 78 (unknown) (no date) (unknown) [facility]) Result panel 79 (unknown) (no date) (unknown[facility]) Result panel 80 (unknown) (no date) (unknown[facility]) Result panel 81 (unknown) (no date) (unknown[facility]) Result panel 82 (unknown) (no date) (unknown[facility]) Result panel 83 (unknown) (no date) (unknown[facility]) Result panel 84 (unknown) (no date) (unknown[facility]) Result panel 85 (unknown) (no date) (unknown[facility]) Result panel 86 (unknown) (no date) (unknown[facility]) Result panel 87 (unknown) (no date) (unknown[facility]) Result panel 88 (unknown) (no date) (unknown[facility]) Result panel 89 (unknown) (no date) (unknown[facility]) Result panel 90 (unknown) (no date) (unknown[facility]) Result panel 91 (unknown) (no date) (unknown[facility]) Result panel 92 (unknown) (no date) (unknown[facility]) Result panel 93 (unknown) (no date) (unknown[facility]) Result panel 94 (unknown) (no date) (unknown[facility]) Result panel 95 (unknown) (no date) (unknown[facility]) Result panel 96 (unknown) (no date) (unknown[facility]) Result panel 97 (unknown) (no date) (unknown[facility]) Result panel 98 (unknown) (no date) (unknown[facility]) Result panel 99 (unknown) (no date) (unknown[facility]) Result panel 100 (unknown) (no date) (unknown[facility]) Result panel 101 (unknown) (no date) (unknown[facility]) Result panel 102 (unknown) (no date) (unknown[facility]) Result panel 103 (unknown) (no date) (unknown[facility]) Result panel 104 (unknown) (no date) (unknown[facility]) Result panel 105 (unknown) (no date) (unknown[facility]) Result panel 106 (unknown) (no date) (unknown[facility]) Result panel 107 (unknown) (no date) (unknown[facility]) Result panel 108 (unknown) (no date) (unknown[facility]) Result panel 109 (unknown) (no date) (unknown[facility]) Result panel 110 (unknown) (no date) (unknown) [facility]) Result panel 111 (unknown) (no date) (unknown) [facility]) Result panel 112 (unknown) (no date) (unknown[facility]) Result panel 113 (unknown) (no date) (unknown[facility]) Result panel 114 (unknown) (no date) (unknown[facility]) Result panel 115 (unknown) (no date) (unknown) [facility]) Result panel 116 (unknown) (no date) (unknown) [facility]) Result panel 117 (unknown) (no date) (unknown) [facility]) Result panel 118 (unknown) (no date) (unknown[facility]) Result panel 119 (unknown) (no date) (unknown) [facility]) Result panel 120 (unknown) (no date) (unknown[facility]) Result panel 121 (unknown) (no date) (unknown[facility]) Result panel 122 (unknown) (no date) (unknown[facility]) Result panel 123 (unknown) (no date) (unknown[facility]) Result panel 124 (unknown) (no date) (unknown[facility]) Result panel 125 (unknown) (no date) (unknown[facility]) Result panel 126 (unknown) (no date) (unknown[facility]) Result panel 127 (unknown) (no date) (unknown[facility]) Result panel 128 (unknown) (no date) (unknown[facility]) Result panel 129 (unknown) (no date) (unknown[facility]) Result panel 130 (unknown) (no date) (unknown[facility]) Result panel 131 (unknown) (no date) (unknown[facility]) Result panel 132 (unknown) (no date) (unknown[facility]) Result panel 133 (unknown) (no date) (unknown[facility]) Result panel 134 (unknown) (no date) (unknown[facility]) Result panel 135 (unknown) (no date) (unknown[facility]) Result panel 136 (unknown) (no date) (unknown) [facility]) Result panel 137 (unknown) (no date) (unknown[facility]) Result panel 138 (unknown) (no date) (unknown) [facility]) Result panel 139 (unknown) (no date) (unknown[facility]) Result panel 140 (unknown) (no date) (unknown[facility]) Result panel 141 (unknown) (no date) (unknown[facility]) Result panel 142 (unknown) (no date) (unknown) [facility]) Result panel 143 (unknown) (no date) (unknown[facility]) Result panel 144 (unknown) (no date) (unknown[facility]) Result panel 145 (unknown) (no date) (unknown) [facility]) Result panel 146 (unknown) (no date) (unknown[facility]) Result panel 147 (unknown) (no date) (unknown) [facility]) Result panel 148 (unknown) (no date) (unknown) [facility]) Result panel 149 (unknown) (no date) (unknown) [facility]) Result panel 150 (unknown) (no date) (unknown) [facility]) Result panel 151 (unknown) (no date) (unknown) [facility]) Result panel 152 (unknown) (no date) (unknown) [facility]) Result panel 153 (unknown) (no date) (unknown) [facility]) Result panel 154 (unknown) (no date) (unknown) [facility]) Result panel 155 (unknown) (no date) (unknown) [facility]) Result panel 156 (unknown) (no date) (unknown) [facility]) Result panel 157 (unknown) (no date) (unknown) [facility]) Result panel 158 (unknown) (no date) (unknown) [facility]) Result panel 159 (unknown) (no date) (unknown) [facility]) Result panel 160 (unknown) (no date) (unknown) [facility]) Result panel 161 (unknown) (no date) (unknown) [facility]) Result panel 162 (unknown) (no date) (unknown) [facility]) Result panel 163 (unknown) (no date) (unknown) [facility]) Result panel 164 (unknown) (no date) (unknown) [facility]) Result panel 165 (unknown) (no date) (unknown) [facility]) Result panel 166 (unknown) (no date) (unknown) [facility]) Result panel 167 (unknown) (no date) (unknown) [facility]) Result panel 168 (unknown) (no date) (unknown) [facility]) Result panel 169 (unknown) (no date) (unknown) [facility]) Result panel 170 (unknown) (no date) (unknown) [facility]) Result panel 171 (unknown) (no date) (unknown) [facility]) Result panel 172 (unknown) (no date) (unknown) [facility]) Result panel 173 (unknown) (no date) (unknown) [facility]) Result panel 174 (unknown) (no date) (unknown) [facility]) Result panel 175 (unknown) (no date) (unknown) [facility]) Result panel 176 (unknown) (no date) (unknown) [facility]) Result panel 177 (unknown) (no date) (unknown) [facility]) Result panel 178 (unknown) (no date) (unknown) [facility]) Result panel 179 (unknown) (no date) (unknown) [facility]) Result panel 180 (unknown) (no date) (unknown) [facility]) Result panel 181 (unknown) (no date) (unknown) [facility]) Result panel 182 (unknown) (no date) (unknown) [facility]) Result panel 183 (unknown) (no date) (unknown) [facility]) Result panel 184 (unknown) (no date) (unknown[facility]) Result panel 185 (unknown) (no date) (unknown) [facility]) Result panel 186 (unknown) (no date) (unknown[facility]) Result panel 187 (unknown) (no date) (unknown) [facility]) Result panel 188 (unknown) (no date) (unknown) [facility]) Result panel 189 (unknown) (no (unknown) (unknown) (no value) (units (unk nown) date) unknown) (unknown) (no (unknown) (unknown) [id number] (units (unkno wn) date) unknown) (unknown) (no (unknown) (unknown) 06/16/22 (units (unkno wn) date) unknown) (unknown) (no (unknown) (unknown) [address]units (unkn own) date) [address] unknown) (unknown) (no (unknown) (unknown) Accession (units (unkn own) date) Number: unknown) [id number] (unknown) (no (unknown) (unknown) Age/Sex: 86 / M (units (unknown) date) Date of Service: unknown) (unknown) (no (unknown) (unknown) [place], [place] (units ( unknown) date) [id number] unknown) (unknown) (no (unknown) (unknown) Approved by: (units (u nknown) date) Brandyn Davis M.D. unknown) on 06/16/2022 at 13:03 (unknown) (no (unknown) (unknown) Bones and chest (units (unknown) date) wall: No unknown) suspicious bony lesions. Overlying soft tissues (unknown) (no (unknown) (unknown) COMPARISON: (units (un known) date) None. unknown) (unknown) (no (unknown) (unknown) : 1935 (units (unknown) date) Acct:[id number] unknown) (unknown) (no (unknown) (unknown) Dictated by: (units (u nknown) date) Brandyn Davis M.D. unknown) on 06/16/2022 at 13:02 (unknown) (no (unknown) (unknown) FINDINGS: (units (unkn own) date) unknown) (unknown) (no (unknown) (unknown) IMPRESSION: (units (un known) date) Possible mild unknown) right and retrocardiac opacities could represent (unknown) (no (unknown) (unknown) INDICATIONS: (units (u nknown) date) suspected sepsis unknown) (unknown) (no (unknown) (unknown) [facility] (units (unknown) date) unknown) (unknown) (no (unknown) (unknown) Loc: ED (units (unkno wn) date) unknown) (unknown) (no (unknown) (unknown) Lungs and (units (unkn own) date) pleura: Low lung unknown) volumes. Possible mild right and retrocardiac (unknown) (no (unknown) (unknown) Mediastinum: (units (u nknown) date) Mediastinal unknown) contours appear normal. Heart size is normal. (unknown) (no (unknown) (unknown) Ordering (units (unkno wn) date) Provider: unknown) Matt Swartz MD (unknown) (no (unknown) (unknown) PROCEDURE: XR (units ( unknown) date) CHEST 1V unknown) (unknown) (no (unknown) (unknown) Patient: (units (unkno wn) date) Yoseph Cardoso unknown) MR#: [id number] (unknown) (no (unknown) (unknown) Procedure: XR (units ( unknown) date) chest 1V unknown) (unknown) (no (unknown) (unknown) Signed (units (unkno wn) date) unknown) (unknown) (no (unknown) (unknown) Surgical (units (unkno wn) date) changes and unknown) devices: Left chest wall pulse generator with dual (unknown) (no (unknown) (unknown) TECHNIQUE: One (units (unknown) date) view of the unknown) chest was acquired. (unknown) (no (unknown) (unknown) XRay Report (units (un known) date) unknown) (unknown) (no (unknown) (unknown) appear (units (unkno wn) date) unknown) (unknown) (no (unknown) (unknown) atelectasis (units (un known) date) unknown) (unknown) (no (unknown) (unknown) basal (units (unkno wn) date) unknown) (unknown) (no (unknown) (unknown) chamber (units (unkno wn) date) unknown) (unknown) (no (unknown) (unknown) electrode leads (units (unknown) date) in place. unknown) (unknown) (no (unknown) (unknown) opacities. No (units ( unknown) date) pleural unknown) effusions. (unknown) (no (unknown) (unknown) or early (units (unkno wn) date) airspace unknown) disease. Consider future imaging surveillance to assess for (unknown) (no (unknown) (unknown) resolution. (units (un known) date) unknown) (unknown) (no (unknown) (unknown) unremarkable. (units ( unknown) date) unknown) Result panel 190 (unknown) (no date) (unknown) (unknown) 0 /ul (unkn own) (unknown) (no date) (unknown) (unknown) 0.1 % (unkn own) (unknown) (no date) (unknown) (unknown) 0.8 % (unkn own) (unknown) (no date) (unknown) (unknown) 100 /ul (unkn own) (unknown) (no date) (unknown) (unknown) 14.4 % (unkn own) (unknown) (no date) (unknown) (unknown) 15.4 g/dl (unkn own) (unknown) (no date) (unknown) (unknown) 222 x10 3/ul (unkn own) (unknown) (no date) (unknown) (unknown) 30.4 pg (unkn own) (unknown) (no date) (unknown) (unknown) 33.0 % (unkn own) (unknown) (no date) (unknown) (unknown) 4.6 % (unkn own) (unknown) (no date) (unknown) (unknown) 400 /ul (unkn own) (unknown) (no date) (unknown) (unknown) 46.6 % (unkn own) (unknown) (no date) (unknown) (unknown) 5.05 x10 6/ul (unkn own) (unknown) (no date) (unknown) (unknown) 8200 /ul (unkn own) (unknown) (no date) (unknown) (unknown) 85.1 % (unkn own) (unknown) (no date) (unknown) (unknown) 9.4 % (unkn own) (unknown) (no date) (unknown) (unknown) 9.6 x10 3/ul (unkn own) (unknown) (no date) (unknown) (unknown) 900 /ul (unkn own) (unknown) (no date) (unknown) (unknown) 92.4 fl (unkn own) Result panel 191 (unknown) (no date) (unknown) (unknown) > 60 ml/min (unkn own) (unknown) (no date) (unknown) (unknown) > 60 ml/min (unkn own) (unknown) (no date) (unknown) (unknown) 0.99 mg/dl (unkn own) (unknown) (no date) (unknown) (unknown) 1.1 (units (unkn own) unknown) (unknown) (no date) (unknown) (unknown) 1.5 (units (unkn own) unknown) (unknown) (no date) (unknown) (unknown) 135 mmol/l (unkn own) (unknown) (no date) (unknown) (unknown) 146 mg/dl (unkn own) (unknown) (no date) (unknown) (unknown) 146 mg/dl (unkn own) (unknown) (no date) (unknown) (unknown) 17.6 seconds (unkn own) (unknown) (no date) (unknown) (unknown) 2.1 mg/dl (unkn own) (unknown) (no date) (unknown) (unknown) 2.7 g/dl (unkn own) (unknown) (no date) (unknown) (unknown) 28 mmol/l (unkn own) (unknown) (no date) (unknown) (unknown) 3.1 g/dl (unkn own) (unknown) (no date) (unknown) (unknown) 34 mg/dl (unkn own) (unknown) (no date) (unknown) (unknown) 34.3 (units (unkn own) unknown) (unknown) (no date) (unknown) (unknown) 38 seconds (unkn own) (unknown) (no date) (unknown) (unknown) 38 seconds (unkn own) (unknown) (no date) (unknown) (unknown) 4.3 mmol/l (unkn own) (unknown) (no date) (unknown) (unknown) 4.8 mmol/l (unkn own) (unknown) (no date) (unknown) (unknown) 428 u/l (unkn own) (unknown) (no date) (unknown) (unknown) 45 u/l (unkn own) (unknown) (no date) (unknown) (unknown) 5.8 g/dl (unkn own) (unknown) (no date) (unknown) (unknown) 53 u/l (unkn own) (unknown) (no date) (unknown) (unknown) 61 iu/l (unkn own) (unknown) (no date) (unknown) (unknown) 63 iu/l (unkn own) (unknown) (no date) (unknown) (unknown) 8.1 mg/dl (unkn own) (unknown) (no date) (unknown) (unknown) 99 mmol/l (unkn own) (unknown) (no date) (unknown) (unknown) Test not % (unkn own) performed (unknown) (no date) (unknown) (unknown) Test not % (unkn own) performed (unknown) (no date) (unknown) (unknown) Test not ng/ml (unkn own) performed (unknown) (no date) (unknown) (unknown) Test not ng/ml (unkn own) performed Result panel 192 (unknown) (no date) (unknown) (unknown) 4.3 mmol/l (unkn own) (unknown) (no date) (unknown) (unknown) 4.3 mmol/l (unkn own) Result panel 193 (unknown) (no (unknown) (unknown) (no value) (units (unk nown) date) unknown) (unknown) (no (unknown) (unknown) [id number] (units (unkno wn) date) unknown) (unknown) (no (unknown) (unknown) 06/16/22 (units (unkno wn) date) unknown) (unknown) (no (unknown) (unknown) [address] [place] [address] (units (unknown) date) unknown) (unknown) (no (unknown) (unknown) Accession Number: (units (unknown) date) [id number] unknown) (unknown) (no (unknown) (unknown) Age/Sex: 86 / M (units (unknown) date) Date of Service: unknown) (unknown) (no (unknown) (unknown) [place], [place] (units ( unknown) date) [id number] unknown) (unknown) (no (unknown) (unknown) Approved by: (units (u nknown) date) Brandyn Davis M.D. on unknown) 06/16/2022 at 14:54 (unknown) (no (unknown) (unknown) Brain: No (units (unkn own) date) intracranial unknown) hemorrhage. Amaro-white differentiation is grossly (unknown) (no (unknown) (unknown) COMPARISON: None. (units (unknown) date) unknown) (unknown) (no (unknown) (unknown) CSF spaces: Basal (units (unknown) date) cisterns are unknown) patent. Lateral ventricles are symmetric. (unknown) (no (unknown) (unknown) CT Scan Report (units (unknown) date) unknown) (unknown) (no (unknown) (unknown) Craniofacial (units (u nknown) date) structures: No unknown) displaced fracture. Sinuses are clear. Orbits are (unknown) (no (unknown) (unknown) : 1935 (units (unknown) date) Acct:[id number] unknown) (unknown) (no (unknown) (unknown) Dictated by: (units (u nknown) date) Brandyn Davis M.D. on unknown) 06/16/2022 at 14:52 (unknown) (no (unknown) (unknown) FINDINGS: (units (unkn own) date) unknown) (unknown) (no (unknown) (unknown) IMPRESSION: No (units (unknown) date) acute intracranial unknown) abnormality. If there is concern for (unknown) (no (unknown) (unknown) INDICATIONS: (units (u nknown) date) altered mental unknown) status (unknown) (no (unknown) (unknown) Image quality: (units (unknown) date) Good unknown) (unknown) (no (unknown) (unknown) [facility] (units (unknown) date) unknown) (unknown) (no (unknown) (unknown) Loc: ED (units (unkno wn) date) unknown) (unknown) (no (unknown) (unknown) Noncontrast 4.5 (units (unknown) date) mm thick angled unknown) axial sections acquired from the foramen magnum (unknown) (no (unknown) (unknown) Ordering (units (unkno wn) date) Provider: unknown) Matt Swartz MD (unknown) (no (unknown) (unknown) PROCEDURE: CT (units ( unknown) date) HEAD/BRAIN WO CON unknown) (unknown) (no (unknown) (unknown) Patient: (units (unkno wn) date) Yoseph Cardoso G unknown) MR#: [id number] (unknown) (no (unknown) (unknown) Procedure: CT (units ( unknown) date) head/brain wo con unknown) (unknown) (no (unknown) (unknown) Signed (units (unkno wn) date) unknown) (unknown) (no (unknown) (unknown) TECHNIQUE: (units (unk nown) date) unknown) (unknown) (no (unknown) (unknown) Volume: Vascular (units (unknown) date) calcifications. unknown) Periventricular white matter disease is (unknown) (no (unknown) (unknown) commonly seen (units ( unknown) date) unknown) (unknown) (no (unknown) (unknown) following (units (unkn own) date) unknown) (unknown) (no (unknown) (unknown) intact. (units (unkno wn) date) unknown) (unknown) (no (unknown) (unknown) maintained. (units (un known) date) unknown) (unknown) (no (unknown) (unknown) moderate (units (unkno wn) date) unknown) (unknown) (no (unknown) (unknown) parenchymal (units (un known) date) unknown) (unknown) (no (unknown) (unknown) pathology, (units (unk n) date) consider MRI. unknown) (unknown) (no (unknown) (unknown) patient (units (unkno wn) date) unknown) (unknown) (no (unknown) (unknown) size. (units (unkno wn) date) unknown) (unknown) (no (unknown) (unknown) to the (units (unkno wn) date) unknown) (unknown) (no (unknown) (unknown) vertex, with (units (u nknown) date) coronal and unknown) sagittal reformats. For radiation dose reduction, the (unknown) (no (unknown) (unknown) was used: (units (unkn own) date) automated exposure unknown) control, adjustment of mA and/or kV according to (unknown) (no (unknown) (unknown) with chronic (units (u nknown) date) microangiopathy. unknown) Volume loss is present. These findings are Result panel 194 (unknown) (no date) (unknown) (unknown) > 60 ml/min (unkn own) (unknown) (no date) (unknown) (unknown) > 60 ml/min (unkn own) (unknown) (no date) (unknown) (unknown) < 0.012 ng/ml (unkn own) (unknown) (no date) (unknown) (unknown) < 0.012 ng/ml (unkn own) (unknown) (no date) (unknown) (unknown) 0.99 mg/dl (unkn own) (unknown) (no date) (unknown) (unknown) 1.1 (units (unkn own) unknown) (unknown) (no date) (unknown) (unknown) 135 mmol/l (unkn own) (unknown) (no date) (unknown) (unknown) 1430 pg/ml (unkn own) (unknown) (no date) (unknown) (unknown) 1430 pg/ml (unkn own) (unknown) (no date) (unknown) (unknown) 146 mg/dl (unkn own) (unknown) (no date) (unknown) (unknown) 146 mg/dl (unkn own) (unknown) (no date) (unknown) (unknown) 2.1 mg/dl (unkn own) (unknown) (no date) (unknown) (unknown) 2.7 g/dl (unkn own) (unknown) (no date) (unknown) (unknown) 28 mmol/l (unkn own) (unknown) (no date) (unknown) (unknown) 3.1 g/dl (unkn own) (unknown) (no date) (unknown) (unknown) 34 mg/dl (unkn own) (unknown) (no date) (unknown) (unknown) 34.3 (units (unkn own) unknown) (unknown) (no date) (unknown) (unknown) 4.8 mmol/l (unkn own) (unknown) (no date) (unknown) (unknown) 428 u/l (unkn own) (unknown) (no date) (unknown) (unknown) 45 u/l (unkn own) (unknown) (no date) (unknown) (unknown) 5.8 g/dl (unkn own) (unknown) (no date) (unknown) (unknown) 53 u/l (unkn own) (unknown) (no date) (unknown) (unknown) 61 iu/l (unkn own) (unknown) (no date) (unknown) (unknown) 63 iu/l (unkn own) (unknown) (no date) (unknown) (unknown) 8.1 mg/dl (unkn own) (unknown) (no date) (unknown) (unknown) 99 mmol/l (unkn own) (unknown) (no date) (unknown) (unknown) Test not % (unkn own) performed (unknown) (no date) (unknown) (unknown) Test not % (unkn own) performed (unknown) (no date) (unknown) (unknown) Test not ng/ml (unkn own) performed (unknown) (no date) (unknown) (unknown) Test not ng/ml (unkn own) performed Result panel 195 (unknown) (no date) (unknown) (unknown) > 60 ml/min (unkn own) (unknown) (no date) (unknown) (unknown) > 60 ml/min (unkn own) (unknown) (no date) (unknown) (unknown) < 0.012 ng/ml (unkn own) (unknown) (no date) (unknown) (unknown) < 0.012 ng/ml (unkn own) (unknown) (no date) (unknown) (unknown) 0.99 mg/dl (unkn own) (unknown) (no date) (unknown) (unknown) 1.1 (units (unkn own) unknown) (unknown) (no date) (unknown) (unknown) 135 mmol/l (unkn own) (unknown) (no date) (unknown) (unknown) 1430 pg/ml (unkn own) (unknown) (no date) (unknown) (unknown) 1430 pg/ml (unkn own) (unknown) (no date) (unknown) (unknown) 146 mg/dl (unkn own) (unknown) (no date) (unknown) (unknown) 146 mg/dl (unkn own) (unknown) (no date) (unknown) (unknown) 2.1 mg/dl (unkn own) (unknown) (no date) (unknown) (unknown) 2.7 g/dl (unkn own) (unknown) (no date) (unknown) (unknown) 28 mmol/l (unkn own) (unknown) (no date) (unknown) (unknown) 3.1 g/dl (unkn own) (unknown) (no date) (unknown) (unknown) 3.27 ng/ml (unkn own) (unknown) (no date) (unknown) (unknown) 3.27 ng/ml (unkn own) (unknown) (no date) (unknown) (unknown) 34 mg/dl (unkn own) (unknown) (no date) (unknown) (unknown) 34.3 (units (unkn own) unknown) (unknown) (no date) (unknown) (unknown) 4.8 mmol/l (unkn own) (unknown) (no date) (unknown) (unknown) 428 u/l (unkn own) (unknown) (no date) (unknown) (unknown) 45 u/l (unkn own) (unknown) (no date) (unknown) (unknown) 5.8 g/dl (unkn own) (unknown) (no date) (unknown) (unknown) 53 u/l (unkn own) (unknown) (no date) (unknown) (unknown) 61 iu/l (unkn own) (unknown) (no date) (unknown) (unknown) 63 iu/l (unkn own) (unknown) (no date) (unknown) (unknown) 8.1 mg/dl (unkn own) (unknown) (no date) (unknown) (unknown) 99 mmol/l (unkn own) (unknown) (no date) (unknown) (unknown) Test not % (unkn own) performed (unknown) (no date) (unknown) (unknown) Test not % (unkn own) performed (unknown) (no date) (unknown) (unknown) Test not ng/ml (unkn own) performed (unknown) (no date) (unknown) (unknown) Test not ng/ml (unkn own) performed Result panel 196 (unknown) (no (unknown) (unknown) (no value) (units (unk nown) date) unknown) (unknown) (no (unknown) (unknown) [id number] (units (unkno wn) date) unknown) (unknown) (no (unknown) (unknown) 06/16/22 (units (unkno wn) date) unknown) (unknown) (no (unknown) (unknown) [address] [place] [address] (units (unknown) date) unknown) (unknown) (no (unknown) (unknown) Accession (units (unkn own) date) Number: unknown) [id number] (unknown) (no (unknown) (unknown) After the (units (unkn own) date) administration of unknown) intravenous contrast, 5 mm thick sections acquired (unknown) (no (unknown) (unknown) Age/Sex: 86 / M (units (unknown) date) Date of Service: unknown) (unknown) (no (unknown) (unknown) [place], [place] (units ( unknown) date) [id number] unknown) (unknown) (no (unknown) (unknown) Approved by: (units (u nknown) date) Brandyn Davis M.D. unknown) on 06/16/2022 at 14:52 (unknown) (no (unknown) (unknown) Bones: No acute (units (unknown) date) or suspicious unknown) osseous abnormality. (unknown) (no (unknown) (unknown) COMPARISON: (units (un known) date) [facility], unknown) CR, XR CHEST 1V, 06/16/2022, 12:43. (unknown) (no (unknown) (unknown) CT Scan Report (units (unknown) date) unknown) (unknown) (no (unknown) (unknown) Chest wall and (units (unknown) date) thyroid: unknown) Unremarkable (unknown) (no (unknown) (unknown) : 1935 (units (unknown) date) Acct:[id number] unknown) (unknown) (no (unknown) (unknown) Dictated by: (units (u nknown) date) Brandyn Davis M.D. unknown) on 06/16/2022 at 14:48 (unknown) (no (unknown) (unknown) FINDINGS: (units (unkn own) date) unknown) (unknown) (no (unknown) (unknown) IMPRESSION: (units (un known) date) Bibasilar unknown) infectious or inflammatory pulmonary opacities. (unknown) (no (unknown) (unknown) INDICATIONS: (units (u nknown) date) chest pain unknown) (unknown) (no (unknown) (unknown) Image quality: (units (unknown) date) Good unknown) (unknown) (no (unknown) (unknown) [facility] (units (unknown) date) unknown) (unknown) (no (unknown) (unknown) Loc: ED (units (unkno wn) date) unknown) (unknown) (no (unknown) (unknown) Lungs and (units (unkn own) date) pleura: Bilateral unknown) [id number] pleural effusions, slightly (unknown) (no (unknown) (unknown) Mediastinum, (units (u nknown) date) heart, and unknown) esophagus: No hiatal hernia. Left chest wall pulse (unknown) (no (unknown) (unknown) [id number] (units (unknown) date) , unknown) (unknown) (no (unknown) (unknown) Ordering (units (unkno wn) date) Provider: unknown) Matt Swartz MD (unknown) (no (unknown) (unknown) Other findings (units (unknown) date) as above. Of unknown) note, the liver and spleen are significantly (unknown) (no (unknown) (unknown) PROCEDURE: CT (units ( unknown) date) CHEST W CON unknown) (unknown) (no (unknown) (unknown) Patient: (units (unkno wn) date) Yoseph Cardoso G unknown) MR#: [id number] (unknown) (no (unknown) (unknown) Procedure: CT (units ( unknown) date) chest w con unknown) (unknown) (no (unknown) (unknown) Signed (units (unkno wn) date) unknown) (unknown) (no (unknown) (unknown) TECHNIQUE: (units (unk nown) date) unknown) (unknown) (no (unknown) (unknown) There is also (units ( unknown) date) heterogeneous unknown) appearance of the spleen. (unknown) (no (unknown) (unknown) Upper abdomen: (units (unknown) date) Heterogeneous unknown) appearance of the liver, not well evaluated on (unknown) (no (unknown) (unknown) assess for (units (unk nown) date) resolution. unknown) (unknown) (no (unknown) (unknown) consider (units (unkno wn) date) nonemergent MRI unknown) if necessary. (unknown) (no (unknown) (unknown) coronal and (units (un known) date) sagittal unknown) reformats and 7 mm axial MIP were acquired. For radiation (unknown) (no (unknown) (unknown) criteria. (units (unkn own) date) unknown) (unknown) (no (unknown) (unknown) dose (units (unkno wn) date) unknown) (unknown) (no (unknown) (unknown) from the (units (unkno wn) date) unknown) (unknown) (no (unknown) (unknown) generator (units (unkn own) date) unknown) (unknown) (no (unknown) (unknown) greater on the (units (unknown) date) unknown) (unknown) (no (unknown) (unknown) heterogeneous (units ( unknown) date) unknown) (unknown) (no (unknown) (unknown) history, and (units (u nknown) date) unknown) (unknown) (no (unknown) (unknown) kV according to (units (unknown) date) patient size. unknown) (unknown) (no (unknown) (unknown) mA and/or (units (unkn own) date) unknown) (unknown) (no (unknown) (unknown) pulmonary apices (units (unknown) date) to the posterior unknown) costophrenic angles. 1 mm axial lung, 5 mm (unknown) (no (unknown) (unknown) reduction, the (units (unknown) date) following was unknown) used: automated exposure control, adjustment of (unknown) (no (unknown) (unknown) right greater (units ( unknown) date) than left pleural unknown) effusions. Consider future imaging (unknown) (no (unknown) (unknown) right. Bibasilar (units (unknown) date) opacities and unknown) nodularity also present. (unknown) (no (unknown) (unknown) size (units (unkno wn) date) unknown) (unknown) (no (unknown) (unknown) surveillance to (units (unknown) date) unknown) (unknown) (no (unknown) (unknown) thick (units (unkno wn) date) unknown) (unknown) (no (unknown) (unknown) this study. (units (un known) date) unknown) (unknown) (no (unknown) (unknown) which may be (units (u nknown) date) related to liver unknown) disease. Please correlate with LFTs, clinical (unknown) (no (unknown) (unknown) with electrode (units (unknown) date) leads. Coronary unknown) calcifications. No pathologic adenopathy by Result panel 197 (unknown) (no date) (unknown) (unknown) Flu A (units (unkn own) NEGATIVE unknown) (unknown) (no date) (unknown) (unknown) Flu B (units (unkn own) NEGATIVE unknown) (unknown) (no date) (unknown) (unknown) Negative (units (unkn own) unknown) (unknown) (no date) (unknown) (unknown) Negative (units (unkn own) unknown) Result panel 198 (unknown) (no (unknown) (unknown) (no value) (units (unk nown) date) unknown) (unknown) (no (unknown) (unknown) [id number] (units (unkno wn) date) unknown) (unknown) (no (unknown) (unknown) 06/16/22 (units (unkno wn) date) 06/16/22 06/16/22 unknown) Range/Units (unknown) (no (unknown) (unknown) 06/16/22 (units (unkno wn) date) 06/16/22 unknown) Range/Units (unknown) (no (unknown) (unknown) 06/16/22 12:35 (units (unknown) date) unknown) (unknown) (no (unknown) (unknown) 06/16/22 12:45 (units (unknown) date) unknown) (unknown) (no (unknown) (unknown) 06/16/22 13:01 (units (unknown) date) unknown) (unknown) (no (unknown) (unknown) 06/16/22 13:13 (units (unknown) date) unknown) (unknown) (no (unknown) (unknown) 06/16/22 13:24 (units (unknown) date) unknown) (unknown) (no (unknown) (unknown) 06/16/22 13:32 (units (unknown) date) unknown) (unknown) (no (unknown) (unknown) 06/16/22 (units (unkno wn) date) unknown) (unknown) (no (unknown) (unknown) 12:21 06/16/22 (units (unknown) date) unknown) (unknown) (no (unknown) (unknown) 12:30 06/16/22 (units (unknown) date) unknown) (unknown) (no (unknown) (unknown) 12:30 (units (unkno wn) date) unknown) (unknown) (no (unknown) (unknown) 12:35 12:35 (units (un known) date) 12:35 unknown) (unknown) (no (unknown) (unknown) 12:35 12:35 (units (un known) date) unknown) (unknown) (no (unknown) (unknown) 12:45 06/16/22 (units (unknown) date) unknown) (unknown) (no (unknown) (unknown) 13:00 06/16/22 (units (unknown) date) unknown) (unknown) (no (unknown) (unknown) 13:00 (units (unkno wn) date) unknown) (unknown) (no (unknown) (unknown) 13:15 06/16/22 (units (unknown) date) unknown) (unknown) (no (unknown) (unknown) 13:15 (units (unkno wn) date) unknown) (unknown) (no (unknown) (unknown) 13:30 06/16/22 (units (unknown) date) unknown) (unknown) (no (unknown) (unknown) 13:45 06/16/22 (units (unknown) date) unknown) (unknown) (no (unknown) (unknown) 13:46 (units (unkno wn) date) unknown) (unknown) (no (unknown) (unknown) 4 mos (units (unkno wn) date) unknown) (unknown) (no (unknown) (unknown) 72 (units (unkno wn) date) unknown) (unknown) (no (unknown) (unknown) ALT (<50) IU/L (units (unknown) date) unknown) (unknown) (no (unknown) (unknown) ALT 63 H (<50) (units (unknown) date) IU/L unknown) (unknown) (no (unknown) (unknown) APTT (26-36) (units (u nknown) date) SECONDS unknown) (unknown) (no (unknown) (unknown) APTT 38 H (units (unkn own) date) (26-36) SECONDS unknown) (unknown) (no (unknown) (unknown) AST (17-59) IU/L (units (unknown) date) unknown) (unknown) (no (unknown) (unknown) AST 61 H (17-59) (units (unknown) date) IU/L unknown) (unknown) (no (unknown) (unknown) After history (units ( unknown) date) and exam CT head unknown) CT chest CBC CMP BNP troponin procalcitonin (unknown) (no (unknown) (unknown) Age/Sex: 86 / M (units (unknown) date) unknown) (unknown) (no (unknown) (unknown) Albumin (units (unkno wn) date) (3.5-5.0) g/dL unknown) (unknown) (no (unknown) (unknown) Albumin 3.1 L (units ( unknown) date) (3.5-5.0) g/dL unknown) (unknown) (no (unknown) (unknown) Albumin/Globulin (units (unknown) date) Ratio (1.0-2.8) unknown) (unknown) (no (unknown) (unknown) Albumin/Globulin (units (unknown) date) Ratio 1.1 unknown) (1.0-2.8) (unknown) (no (unknown) (unknown) Alkaline (units (unkno wn) date) Phosphatase unknown) (38-126) U/L (unknown) (no (unknown) (unknown) Alkaline (units (unkno wn) date) Phosphatase 428 H unknown) (38-126) U/L (unknown) (no (unknown) (unknown) Allergies (units (unkn own) date) unknown) (unknown) (no (unknown) (unknown) Allergy/AdvReac (units (unknown) date) Type Severity unknown) Reaction Status Date / Time (unknown) (no (unknown) (unknown) BACK: No flank (units (unknown) date) tenderness. unknown) (unknown) (no (unknown) (unknown) BNP [NT-proBNP (units (unknown) date) (BNP-Adult 18+)] unknown) Stat (unknown) (no (unknown) (unknown) BUN (9-20) mg/dL (units (unknown) date) unknown) (unknown) (no (unknown) (unknown) BUN 34 H (9-20) (units (unknown) date) mg/dL unknown) (unknown) (no (unknown) (unknown) BUN/Creatinine (units (unknown) date) Ratio (6-22) unknown) (unknown) (no (unknown) (unknown) BUN/Creatinine (units (unknown) date) Ratio 34.3 H unknown) (6-22) (unknown) (no (unknown) (unknown) Baso # (Auto) (units ( unknown) date) (0-100) /uL unknown) (unknown) (no (unknown) (unknown) Baso # (Auto) (units ( unknown) date) 100 (0-100) /uL unknown) (unknown) (no (unknown) (unknown) Baso % (Auto) (units ( unknown) date) (0-2) % unknown) (unknown) (no (unknown) (unknown) Baso % (Auto) (units ( unknown) date) 0.8 (0-2) % unknown) (unknown) (no (unknown) (unknown) Blood Culture (units ( unknown) date) Stat unknown) (unknown) (no (unknown) (unknown) Blood Pressure (units (unknown) date) 134/61 141/67 H unknown) (unknown) (no (unknown) (unknown) Blood Pressure (units (unknown) date) 141/57 H unknown) (unknown) (no (unknown) (unknown) Blood Pressure (units (unknown) date) 142/67 H unknown) (unknown) (no (unknown) (unknown) Blood Pressure (units (unknown) date) 144/68 H 06/16/22 unknown) 12:21 (unknown) (no (unknown) (unknown) Blood Pressure (units (unknown) date) 144/68 H 144/68 H unknown) (unknown) (no (unknown) (unknown) Blood Pressure (units (unknown) date) unknown) (unknown) (no (unknown) (unknown) CARDIOVASCULAR: (units (unknown) date) Regular rate and unknown) rhythm without murmurs (unknown) (no (unknown) (unknown) CARDIOVASCULAR: (units (unknown) date) negative chest unknown) pain, palpitations (unknown) (no (unknown) (unknown) CC: Weakness (units (u nknown) date) weight loss night unknown) sweats (unknown) (no (unknown) (unknown) CK-MB (CK-2) Rel (units (unknown) date) Index TNP unknown) (unknown) (no (unknown) (unknown) CK-MB (CK-2) Rel (units (unknown) date) Index unknown) (unknown) (no (unknown) (unknown) CK-MB (CK-2) TNP (units (unknown) date) unknown) (unknown) (no (unknown) (unknown) CK-MB (CK-2) (units (u nknown) date) unknown) (unknown) (no (unknown) (unknown) CT chest w con (units (unknown) date) Stat unknown) (unknown) (no (unknown) (unknown) CT head/brain wo (units (unknown) date) con Stat unknown) (unknown) (no (unknown) (unknown) Calcium (units (unkno wn) date) (8.4-10.2) mg/dL unknown) (unknown) (no (unknown) (unknown) Calcium 8.1 L (units ( unknown) date) (8.4-10.2) mg/dL unknown) (unknown) (no (unknown) (unknown) Carbon Dioxide (units (unknown) date) (22-32) mmol/L unknown) (unknown) (no (unknown) (unknown) Carbon Dioxide (units (unknown) date) 28 (22-32) mmol/L unknown) (unknown) (no (unknown) (unknown) Chief complaint: (units (unknown) date) Weakness unknown) (unknown) (no (unknown) (unknown) Chloride (units (unkno wn) date) (98-107) mmol/L unknown) (unknown) (no (unknown) (unknown) Chloride 99 (units (un known) date) (98-107) mmol/L unknown) (unknown) (no (unknown) (unknown) Complete Blood (units (unknown) date) Count AUTO DIFF unknown) Stat (unknown) (no (unknown) (unknown) Complicating (units (u nknown) date) co-morbidities: unknown) History of melanoma (unknown) (no (unknown) (unknown) Comprehensive (units ( unknown) date) Metabolic Panel unknown) Stat (unknown) (no (unknown) (unknown) Consultations: (units (unknown) date) unknown) (unknown) (no (unknown) (unknown) Course (units (unkno wn) date) unknown) (unknown) (no (unknown) (unknown) Covid-19 + FLU (units (unknown) date) A/B + RSV - PCR unknown) Stat (unknown) (no (unknown) (unknown) Creatinine (units (unk nown) date) (0.66-1.25) mg/dL unknown) (unknown) (no (unknown) (unknown) Creatinine 0.99 (units (unknown) date) (0.66-1.25) mg/dL unknown) (unknown) (no (unknown) (unknown) : 1935 (units (unknown) date) Acct:[id number] unknown) (unknown) (no (unknown) (unknown) Data collected (units (unknown) date) from: Patient and unknown) and 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's stave bolt equalizer as well as ER (unknown) (no (unknown) (unknown) Date of Service: (units (unknown) date) 06/16/22 unknown) (unknown) (no (unknown) (unknown) Departure (units (unkn own) date) unknown) (unknown) (no (unknown) (unknown) Diagnosis: (units (unk nown) date) unknown) (unknown) (no (unknown) (unknown) Differential (units (u nknown) date) considered: unknown) Includes but not limited to neoplastic process, (unknown) (no (unknown) (unknown) Discharge Plan (units (unknown) date) unknown) (unknown) (no (unknown) (unknown) Discontinued (units (u nknown) date) Medications unknown) (unknown) (no (unknown) (unknown) Discussion: (units (un known) date) unknown) (unknown) (no (unknown) (unknown) Documented By: (units (unknown) date) RLS unknown) (unknown) (no (unknown) (unknown) ED Orders (units (unkn own) date) unknown) (unknown) (no (unknown) (unknown) EKG-12 Lead Stat (units (unknown) date) unknown) (unknown) (no (unknown) (unknown) ENT: Slightly (units ( unknown) date) dry lips and unknown) mucous membranes (unknown) (no (unknown) (unknown) ER Physician: (units ( unknown) date) Matt Swartz MD unknown) (unknown) (no (unknown) (unknown) EXTREMITIES: No (units (unknown) date) gross unknown) deformities. (unknown) (no (unknown) (unknown) EYES: Pupils (units (u nknown) date) equal round unknown) (unknown) (no (unknown) (unknown) Emergency Report (units (unknown) date) unknown) (unknown) (no (unknown) (unknown) Eos # (Auto) (units (u nknown) date) (0-450) /uL unknown) (unknown) (no (unknown) (unknown) Eos # (Auto) 0 (units (unknown) date) (0-450) /uL unknown) (unknown) (no (unknown) (unknown) Eos % (Auto) (units (u nknown) date) (2-4) % unknown) (unknown) (no (unknown) (unknown) Eos % (Auto) 0.1 (units (unknown) date) L (2-4) % unknown) (unknown) (no (unknown) (unknown) Estimated GFR > (units (unknown) date) 60 (>60) mL/min unknown) (unknown) (no (unknown) (unknown) Estimated GFR (units ( unknown) date) (>60) mL/min unknown) (unknown) (no (unknown) (unknown) Exam Narrative: (units (unknown) date) unknown) (unknown) (no (unknown) (unknown) Exam documented (units (unknown) date) above, pertinent unknown) findings include: Cachectic-appeari ng dry (unknown) (no (unknown) (unknown) Exam (units (unkno wn) date) unknown) (unknown) (no (unknown) (unknown) GASTROINTESTINAL (units (unknown) date) : Abdomen soft, unknown) non-tender (unknown) (no (unknown) (unknown) GASTROINTESTINAL (units (unknown) date) : negative unknown) nausea, vomiting, abdominal pain (unknown) (no (unknown) (unknown) GENERAL: in no (units (unknown) date) distress, not unknown) toxic not dyspneic, is cachectic appearing (unknown) (no (unknown) (unknown) GENERAL: (units (unkno wn) date) negative chills, unknown) positive fatigue, malaise, dizzy negative fever, (unknown) (no (unknown) (unknown) : negative (units (u nknown) date) dysuria, unknown) frequency, hematuria (unknown) (no (unknown) (unknown) General (units (unkno wn) date) unknown) (unknown) (no (unknown) (unknown) Globulin (units (unkno wn) date) (1.7-4.1) g/dL unknown) (unknown) (no (unknown) (unknown) Globulin 2.7 (units (u nknown) date) (1.7-4.1) g/dL unknown) (unknown) (no (unknown) (unknown) Glucose (80-110) (units (unknown) date) mg/dL unknown) (unknown) (no (unknown) (unknown) Glucose 146 H (units ( unknown) date) (80-110) mg/dL unknown) (unknown) (no (unknown) (unknown) HEAD: (units (unkno wn) date) Normocephalic. unknown) (unknown) (no (unknown) (unknown) HEENT: negative (units (unknown) date) sinus pain, ear unknown) pain, sore throat (unknown) (no (unknown) (unknown) HPI - Weakness (units (unknown) date) unknown) (unknown) (no (unknown) (unknown) HPI Narrative: (units (unknown) date) unknown) (unknown) (no (unknown) (unknown) Hct (41-53) % (units ( unknown) date) unknown) (unknown) (no (unknown) (unknown) Hct 46.6 (41-53) (units (unknown) date) % unknown) (unknown) (no (unknown) (unknown) Hgb (13.5-17.5) (units (unknown) date) g/dL unknown) (unknown) (no (unknown) (unknown) Hgb 15.4 (units (unkno wn) date) (13.5-17.5) g/dL unknown) (unknown) (no (unknown) (unknown) History of (units (unk nown) date) Present Illness unknown) (unknown) (no (unknown) (unknown) Home Medications (units (unknown) date) unknown) (unknown) (no (unknown) (unknown) INR (0.9-1.3) (units ( unknown) date) unknown) (unknown) (no (unknown) (unknown) INR 1.5 H (units (unkn own) date) (0.9-1.3) unknown) (unknown) (no (unknown) (unknown) Imaging studies (units (unknown) date) independently unknown) reviewed: Chest x-ray no acute process (unknown) (no (unknown) (unknown) Independently (units ( unknown) date) reviewed EKG as unknown) above atrial sensed ventricular paced rhythm rate (unknown) (no (unknown) (unknown) Influenza A (units (un known) date) (RT-PCR) unknown) (NEGATIVE) (unknown) (no (unknown) (unknown) Influenza A (units (un known) date) (RT-PCR) Flu a unknown) negative (NEGATIVE) (unknown) (no (unknown) (unknown) Influenza B (units (un known) date) (RT-PCR) unknown) (NEGATIVE) (unknown) (no (unknown) (unknown) Influenza B (units (un known) date) (RT-PCR) Flu b unknown) negative (NEGATIVE) (unknown) (no (unknown) (unknown) Initial Vital (units ( unknown) date) Signs unknown) (unknown) (no (unknown) (unknown) Initial Vital (units ( unknown) date) Signs: unknown) (unknown) (no (unknown) (unknown) [facility] (units (unknown) date) [address] unknown) [place] [address] (unknown) (no (unknown) (unknown) Lab Data (units (unkno wn) date) unknown) (unknown) (no (unknown) (unknown) Lab Results (units (un known) date) unknown) (unknown) (no (unknown) (unknown) Lab Test results (units (unknown) date) independently unknown) reviewed as above. Pertinent findings: WBC 9.6 (unknown) (no (unknown) (unknown) Labs: (units (unkno wn) date) unknown) (unknown) (no (unknown) (unknown) Lactate (units (unkno wn) date) (0.7-2.1) mmol/L unknown) (unknown) (no (unknown) (unknown) Lactate (Lactic (units (unknown) date) Acid) Stat unknown) (unknown) (no (unknown) (unknown) Lactate 4.3 H* (units (unknown) date) (0.7-2.1) mmol/L unknown) (unknown) (no (unknown) (unknown) Lucien Lan (units (unknown) date) MD Yudi [Primary unknown) Care Provider] (unknown) (no (unknown) (unknown) Last Admin: (units (un known) date) 06/16/22 13:02 unknown) Dose: 1,000 mls/hr (unknown) (no (unknown) (unknown) Lipase (23-300) (units (unknown) date) U/L unknown) (unknown) (no (unknown) (unknown) Lipase 45 (units (unkn own) date) (23-300) U/L unknown) (unknown) (no (unknown) (unknown) Lipase Stat (units (un known) date) unknown) (unknown) (no (unknown) (unknown) Lymph # (Auto) (units (unknown) date) (8893-7315) /uL unknown) (unknown) (no (unknown) (unknown) Lymph # (Auto) (units (unknown) date) 400 L (3346-7155) unknown) /uL (unknown) (no (unknown) (unknown) Lymph % (Auto) (units (unknown) date) (25-40) % unknown) (unknown) (no (unknown) (unknown) Lymph % (Auto) (units (unknown) date) 4.6 L (25-40) % unknown) (unknown) (no (unknown) (unknown) MCH (26-34) PG (units (unknown) date) unknown) (unknown) (no (unknown) (unknown) MCH 30.4 (26-34) (units (unknown) date) PG unknown) (unknown) (no (unknown) (unknown) MCHC (30-36) % (units (unknown) date) unknown) (unknown) (no (unknown) (unknown) MCHC 33.0 (units (unkn own) date) (30-36) % unknown) (unknown) (no (unknown) (unknown) MCV (80-100) fL (units (unknown) date) unknown) (unknown) (no (unknown) (unknown) MCV 92.4 (units (unkno wn) date) (80-100) fL unknown) (unknown) (no (unknown) (unknown) MDM - Weakness (units (unknown) date) unknown) (unknown) (no (unknown) (unknown) MDM Narrative (units ( unknown) date) unknown) (unknown) (no (unknown) (unknown) MDM (units (unkno wn) date) unknown) (unknown) (no (unknown) (unknown) MUSCULOSKELETAL: (units (unknown) date) negative muscle unknown) or bony pain (unknown) (no (unknown) (unknown) Medical decision (units (unknown) date) making narrative: unknown) (unknown) (no (unknown) (unknown) Medical records (units (unknown) date) reviewed: ER unknown) visits from a few days ago (unknown) (no (unknown) (unknown) Medication (units (unk nown) date) Instructions unknown) Recorded Confirmed (unknown) (no (unknown) (unknown) Mode of arrival: (units (unknown) date) Wheelchair unknown) (unknown) (no (unknown) (unknown) [place] # (Auto) (units ( unknown) date) (0-900) /uL unknown) (unknown) (no (unknown) (unknown) [place] # (Auto) (units ( unknown) date) 900 (0-900) /uL unknown) (unknown) (no (unknown) (unknown) [place] % (Auto) (units ( unknown) date) (3-14) % unknown) (unknown) (no (unknown) (unknown) [place] % (Auto) (units ( unknown) date) 9.4 (3-14) % unknown) (unknown) (no (unknown) (unknown) NECK: Trachea (units ( unknown) date) midline. unknown) (unknown) (no (unknown) (unknown) NEURO: AOx4. (units (u nknown) date) Clear speech no unknown) facial droop light touch intact to bilateral face (unknown) (no (unknown) (unknown) NEUROLOGIC: (units (un known) date) negative unknown) weakness, numbness (unknown) (no (unknown) (unknown) NT-Pro-B (units (unkno wn) date) Natriuret Pep unknown) (<450) pg/mL (unknown) (no (unknown) (unknown) NT-Pro-B (units (unkno wn) date) Natriuret Pep unknown) 1430 H (<450) pg/mL (unknown) (no (unknown) (unknown) Narrative (units (unkn own) date) unknown) (unknown) (no (unknown) (unknown) Narrative: (units (unk nown) date) unknown) (unknown) (no (unknown) (unknown) Neut # (Auto) (units ( unknown) date) (3042-2233) /uL unknown) (unknown) (no (unknown) (unknown) Neut # (Auto) (units ( unknown) date) 8200 H unknown) (6891-6508) /uL (unknown) (no (unknown) (unknown) Neut % (Auto) (units ( unknown) date) (50-75) % unknown) (unknown) (no (unknown) (unknown) Neut % (Auto) (units ( unknown) date) 85.1 H (50-75) % unknown) (unknown) (no (unknown) (unknown) No Action (units (unkn own) date) unknown) (unknown) (no (unknown) (unknown) No Known Home (units ( unknown) date) Medications unknown) 12/20/20 12/20/20 (unknown) (no (unknown) (unknown) No Known Home (units ( unknown) date) Medications unknown) (unknown) (no (unknown) (unknown) Ondansetron HCl (units (unknown) date) (Ondansetron 4 unknown) Mg/2 Ml Inj) 4 mg IV NOW PRN (unknown) (no (unknown) (unknown) Ordered: (units (unkno wn) date) unknown) (unknown) (no (unknown) (unknown) Orders (units (unkno wn) date) unknown) (unknown) (no (unknown) (unknown) Oxygen Delivery (units (unknown) date) Method 06/16/22 unknown) 12:21 (unknown) (no (unknown) (unknown) Oxygen Delivery (units (unknown) date) Method Room Air unknown) (unknown) (no (unknown) (unknown) Oxygen Delivery (units (unknown) date) Method unknown) (unknown) (no (unknown) (unknown) PRN Reason: (units (un known) date) Nausea And unknown) Vomiting (unknown) (no (unknown) (unknown) PSYCH: Not (units (unk nown) date) anxious, is unknown) cooperative (unknown) (no (unknown) (unknown) PT (10.1-12.7) (units (unknown) date) SECONDS unknown) (unknown) (no (unknown) (unknown) PT 17.6 H (units (unkn own) date) (10.1-12.7) unknown) SECONDS (unknown) (no (unknown) (unknown) Partial (units (unkno wn) date) Thromboplastin unknown) Time Stat (unknown) (no (unknown) (unknown) Patient History (units (unknown) date) unknown) (unknown) (no (unknown) (unknown) Patient brought (units (unknown) date) in by from unknown) Cardiology office for routine office visit. I (unknown) (no (unknown) (unknown) Patient: (units (unkno wn) date) Yoseph Cardoso unknown) MR#: [id number] (unknown) (no (unknown) (unknown) Plt Count (units (unkn own) date) (150-400) X103/uL unknown) (unknown) (no (unknown) (unknown) Plt Count 222 (units ( unknown) date) (150-400) X103/uL unknown) (unknown) (no (unknown) (unknown) Potassium (units (unkn own) date) (3.4-5.1) mmol/L unknown) (unknown) (no (unknown) (unknown) Potassium 4.8 (units ( unknown) date) (3.4-5.1) mmol/L unknown) (unknown) (no (unknown) (unknown) Prescriptions: (units (unknown) date) unknown) (unknown) (no (unknown) (unknown) Procalcitonin (units ( unknown) date) (<0.5) ng/mL unknown) (unknown) (no (unknown) (unknown) Procalcitonin (units ( unknown) date) 3.27 H (<0.5) unknown) ng/mL (unknown) (no (unknown) (unknown) Procalcitonin (units ( unknown) date) Stat unknown) (unknown) (no (unknown) (unknown) Prothrombin Time (units (unknown) date) INR Stat unknown) (unknown) (no (unknown) (unknown) Pulse Oximetry (units (unknown) date) 100 unknown) (unknown) (no (unknown) (unknown) Pulse Oximetry (units (unknown) date) 91 93 unknown) (unknown) (no (unknown) (unknown) Pulse Oximetry (units (unknown) date) 96 96 unknown) (unknown) (no (unknown) (unknown) Pulse Oximetry (units (unknown) date) 98 06/16/22 12:21 unknown) (unknown) (no (unknown) (unknown) Pulse Oximetry (units (unknown) date) 98 93 unknown) (unknown) (no (unknown) (unknown) Pulse Oximetry (units (unknown) date) 98 unknown) (unknown) (no (unknown) (unknown) Pulse Rate 70 72 (units (unknown) date) unknown) (unknown) (no (unknown) (unknown) Pulse Rate 71 (units ( unknown) date) unknown) (unknown) (no (unknown) (unknown) Pulse Rate 73 75 (units (unknown) date) unknown) (unknown) (no (unknown) (unknown) Pulse Rate 76 (units ( unknown) date) unknown) (unknown) (no (unknown) (unknown) Pulse Rate 78 (units ( unknown) date) 06/16/22 12:21 unknown) (unknown) (no (unknown) (unknown) Pulse Rate 78 79 (units (unknown) date) unknown) (unknown) (no (unknown) (unknown) RBC (4.5-5.9) (units ( unknown) date) X106/uL unknown) (unknown) (no (unknown) (unknown) RBC 5.05 (units (unkno wn) date) (4.5-5.9) X106/uL unknown) (unknown) (no (unknown) (unknown) RDW (11.6-14.8) (units (unknown) date) % unknown) (unknown) (no (unknown) (unknown) RDW 14.4 (units (unkno wn) date) (11.6-14.8) % unknown) (unknown) (no (unknown) (unknown) RESPIRATORY: (units (un known) date) Clear to unknown) auscultation. Breath sounds equal bilaterally. No wheezes, (unknown) (no (unknown) (unknown) RESPIRATORY: (units (u nknown) date) negative dyspnea, unknown) cough (unknown) (no (unknown) (unknown) ROS Unobtainable: (units (unknown) date) All systems unknown) reviewed + are unremarkable except as noted in HPI (unknown) (no (unknown) (unknown) RSV (PCR) (units (unkn own) date) (Negative) unknown) (unknown) (no (unknown) (unknown) RSV (PCR) (units (unkn own) date) Negative unknown) (Negative) (unknown) (no (unknown) (unknown) RT Consult Eval (units (unknown) date) and Treat NOW unknown) (unknown) (no (unknown) (unknown) Re-evaluations: (units (unknown) date) unknown) (unknown) (no (unknown) (unknown) Referrals: (units (unk nown) date) unknown) (unknown) (no (unknown) (unknown) Related Data (units (u nknown) date) unknown) (unknown) (no (unknown) (unknown) Respiratory Rate (units (unknown) date) 17 16 unknown) (unknown) (no (unknown) (unknown) Respiratory Rate (units (unknown) date) 20 unknown) (unknown) (no (unknown) (unknown) Respiratory Rate (units (unknown) date) 22 06/16/22 12:21 unknown) (unknown) (no (unknown) (unknown) Respiratory Rate (units (unknown) date) 22 14 unknown) (unknown) (no (unknown) (unknown) Respiratory Rate (units (unknown) date) 22 unknown) (unknown) (no (unknown) (unknown) Review of (units (unkn own) date) Systems unknown) (unknown) (no (unknown) (unknown) SARS-CoV-2 (PCR) (units (unknown) date) (Negative) unknown) (unknown) (no (unknown) (unknown) SARS-CoV-2 (PCR) (units (unknown) date) Negative unknown) (Negative) (unknown) (no (unknown) (unknown) SKIN: Warm and (units (unknown) date) dry unknown) (unknown) (no (unknown) (unknown) SKIN: negative (units (unknown) date) rash, skin unknown) lesions (unknown) (no (unknown) (unknown) Signed By: (units (unk nown) date) unknown) (unknown) (no (unknown) (unknown) Smoking Status: (units (unknown) date) Smoker, status unknown) unknown (unknown) (no (unknown) (unknown) Social History (units (unknown) date) (Reviewed unknown) 06/16/22 @ 14:04 by Matt Swartz MD) (unknown) (no (unknown) (unknown) Sodium (137-145) (units (unknown) date) mmol/L unknown) (unknown) (no (unknown) (unknown) Sodium 135 L (units (u nknown) date) (137-145) mmol/L unknown) (unknown) (no (unknown) (unknown) Sodium Chloride (units (unknown) date) (Normal Saline unknown) 0.9%) 1,000 mls @ 1,000 mls/hr IV BOLUS ONE (unknown) (no (unknown) (unknown) Source: patient (units (unknown) date) and family unknown) (unknown) (no (unknown) (unknown) Stated (units (unkno wn) date) complaint: Pain unknown) near pacemaker (unknown) (no (unknown) (unknown) Stop: 06/16/22 (units (unknown) date) 13:43 unknown) (unknown) (no (unknown) (unknown) Substance Use (units ( unknown) date) Type: does not unknown) use (unknown) (no (unknown) (unknown) Time Seen by (units (u nknown) date) Provider: unknown) 06/16/22 12:46 (unknown) (no (unknown) (unknown) Total Bilirubin (units (unknown) date) (0.2-1.3) mg/dL unknown) (unknown) (no (unknown) (unknown) Total Bilirubin (units (unknown) date) 2.1 H (0.2-1.3) unknown) mg/dL (unknown) (no (unknown) (unknown) Total Creatine (units (unknown) date) Kinase (55-170) unknown) U/L (unknown) (no (unknown) (unknown) Total Creatine (units (unknown) date) Kinase 53 L unknown) (55-170) U/L (unknown) (no (unknown) (unknown) Total Protein (units ( unknown) date) (6.3-8.2) g/dL unknown) (unknown) (no (unknown) (unknown) Total Protein (units ( unknown) date) 5.8 L (6.3-8.2) unknown) g/dL (unknown) (no (unknown) (unknown) Treatments: (units (un known) date) unknown) (unknown) (no (unknown) (unknown) Troponin + CK (units ( unknown) date) Cardiac Panel unknown) Stat (unknown) (no (unknown) (unknown) Troponin I < (units (u nknown) date) 0.012 unknown) (0.01-0.034) ng/mL (unknown) (no (unknown) (unknown) Troponin I (units (unk nown) date) (0.01-0.034) unknown) ng/mL (unknown) (no (unknown) (unknown) Vital Signs - 8 (units (unknown) date) hr unknown) (unknown) (no (unknown) (unknown) Vital Signs (units (un known) date) unknown) (unknown) (no (unknown) (unknown) Vital signs: (units (u nknown) date) unknown) (unknown) (no (unknown) (unknown) WBC (4.5-11.0) (units (unknown) date) X103/uL unknown) (unknown) (no (unknown) (unknown) WBC 9.6 (units (unkno wn) date) (4.5-11.0) unknown) X103/uL (unknown) (no (unknown) (unknown) [facility] (units (unknown) date) ER for evaluation unknown) of dark urine. CT abdomen pelvis were done, (unknown) (no (unknown) (unknown) XR chest 1V Stat (units (unknown) date) unknown) (unknown) (no (unknown) (unknown) [Embedded Image (units (unknown) date) Not Available] unknown) (unknown) (no (unknown) (unknown) [From Prevnar] (units (unknown) date) and feet x unknown) (unknown) (no (unknown) (unknown) after. (units (unkno wn) date) unknown) (unknown) (no (unknown) (unknown) alcohol intake (units (unknown) date) frequency: a few unknown) times a month (unknown) (no (unknown) (unknown) and below (units (unkn own) date) unknown) (unknown) (no (unknown) (unknown) appearing (units (unkn own) date) unknown) (unknown) (no (unknown) (unknown) conjugate to of (units (unknown) date) hands unknown) (unknown) (no (unknown) (unknown) denies any chest (units (unknown) date) pain back pain unknown) abdominal pain or headache. (unknown) (no (unknown) (unknown) facial droop. (units ( unknown) date) Fast exam is unknown) negative. Cardiology does not feel this is cardiac (unknown) (no (unknown) (unknown) facial droop. (units ( unknown) date) Fast exam is unknown) negative. 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 (unknown) (no (unknown) (unknown) health/weight (units ( unknown) date) loss cachexia and unknown) balance issues. He had concern for neoplastic (unknown) (no (unknown) (unknown) hemoglobin 15.4 (units (unknown) date) hematocrit 46.6 unknown) platelets 222 PT 17.6 INR 1.5 PTT 38 sodium 135 (unknown) (no (unknown) (unknown) lactic acid have (units (unknown) date) been ordered unknown) (unknown) (no (unknown) (unknown) no acute process (units (unknown) date) other than unknown) diverticulosis without diverticulitis. states (unknown) (no (unknown) (unknown) pain back pain (units (unknown) date) headache unknown) (unknown) (no (unknown) (unknown) patient has had (units (unknown) date) 30 lb weight loss unknown) in the past few months with night sweats it in (unknown) (no (unknown) (unknown) pneumococcal (units (u nknown) date) 7-valent AdvReac unknown) Intermediate swelling Verified 06/16/22 12:46 (unknown) (no (unknown) (unknown) positive night (units (unknown) date) sweats. Positive unknown) weight loss (unknown) (no (unknown) (unknown) potassium 4.8 (units ( unknown) date) BUN 34 creatinine unknown) 0.99 glucose 146 lactic acid 4.3. BNP 1430 (unknown) (no (unknown) (unknown) process. I spoke (units (unknown) date) with dr gillette. unknown) However, patient was recently seen at (unknown) (no (unknown) (unknown) [facility], or (units (unkn own) date) [facility]. unknown) (unknown) (no (unknown) (unknown) related. Patient (units (unknown) date) here for routine unknown) annual cardiac workup/checkup. Patient (unknown) (no (unknown) (unknown) shuffled gait. (units (unknown) date) Generalized unknown) weakness and malaise. 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 Patient unknown) has history of melanoma. Patient has had recently (unknown) (no (unknown) (unknown) troponin less (units ( unknown) date) than 0.012, unknown) procalcitonin 3.27 (unknown) (no (unknown) (unknown) visit from a few (units (unknown) date) days ago unknown) Result panel 199 (unknown) (no (unknown) (unknown) (no value) (units (unk nown) date) unknown) (unknown) (no (unknown) (unknown) [id number] (units (unkno wn) date) unknown) (unknown) (no (unknown) (unknown) 06/16/22 (units (unkno wn) date) 06/16/22 06/16/22 unknown) Range/Units (unknown) (no (unknown) (unknown) 06/16/22 (units (unkno wn) date) 06/16/22 unknown) Range/Units (unknown) (no (unknown) (unknown) 06/16/22 12:35 (units (unknown) date) unknown) (unknown) (no (unknown) (unknown) 06/16/22 12:45 (units (unknown) date) unknown) (unknown) (no (unknown) (unknown) 06/16/22 13:01 (units (unknown) date) unknown) (unknown) (no (unknown) (unknown) 06/16/22 13:13 (units (unknown) date) unknown) (unknown) (no (unknown) (unknown) 06/16/22 13:24 (units (unknown) date) unknown) (unknown) (no (unknown) (unknown) 06/16/22 13:32 (units (unknown) date) unknown) (unknown) (no (unknown) (unknown) 06/16/22 (units (unkno wn) date) unknown) (unknown) (no (unknown) (unknown) 12:21 06/16/22 (units (unknown) date) unknown) (unknown) (no (unknown) (unknown) 12:30 06/16/22 (units (unknown) date) unknown) (unknown) (no (unknown) (unknown) 12:30 (units (unkno wn) date) unknown) (unknown) (no (unknown) (unknown) 12:35 12:35 (units (un known) date) 12:35 unknown) (unknown) (no (unknown) (unknown) 12:35 12:35 (units (un known) date) unknown) (unknown) (no (unknown) (unknown) 12:45 06/16/22 (units (unknown) date) unknown) (unknown) (no (unknown) (unknown) 13:00 06/16/22 (units (unknown) date) unknown) (unknown) (no (unknown) (unknown) 13:00 (units (unkno wn) date) unknown) (unknown) (no (unknown) (unknown) 13:15 06/16/22 (units (unknown) date) unknown) (unknown) (no (unknown) (unknown) 13:15 (units (unkno wn) date) unknown) (unknown) (no (unknown) (unknown) 13:30 06/16/22 (units (unknown) date) unknown) (unknown) (no (unknown) (unknown) 13:45 06/16/22 (units (unknown) date) unknown) (unknown) (no (unknown) (unknown) 13:46 06/16/22 (units (unknown) date) unknown) (unknown) (no (unknown) (unknown) 13:46 (units (unkno wn) date) unknown) (unknown) (no (unknown) (unknown) 14:00 06/16/22 (units (unknown) date) unknown) (unknown) (no (unknown) (unknown) 14:00 (units (unkno wn) date) unknown) (unknown) (no (unknown) (unknown) 4 mos (units (unkno wn) date) unknown) (unknown) (no (unknown) (unknown) 72 (units (unkno wn) date) unknown) (unknown) (no (unknown) (unknown) ALT (<50) IU/L (units (unknown) date) unknown) (unknown) (no (unknown) (unknown) ALT 63 H (<50) (units (unknown) date) IU/L unknown) (unknown) (no (unknown) (unknown) APTT (26-36) (units (u nknown) date) SECONDS unknown) (unknown) (no (unknown) (unknown) APTT 38 H (units (unkn own) date) (26-36) SECONDS unknown) (unknown) (no (unknown) (unknown) AST (17-59) IU/L (units (unknown) date) unknown) (unknown) (no (unknown) (unknown) AST 61 H (17-59) (units (unknown) date) IU/L unknown) (unknown) (no (unknown) (unknown) Admin: 06/16/22 (units (unknown) date) 13:02 Dose: 1,000 unknown) mls/hr (unknown) (no (unknown) (unknown) After history (units ( unknown) date) and exam CT head unknown) CT chest CBC CMP BNP troponin procalcitonin (unknown) (no (unknown) (unknown) Age/Sex: 86 / M (units (unknown) date) unknown) (unknown) (no (unknown) (unknown) Albumin (units (unkno wn) date) (3.5-5.0) g/dL unknown) (unknown) (no (unknown) (unknown) Albumin 3.1 L (units ( unknown) date) (3.5-5.0) g/dL unknown) (unknown) (no (unknown) (unknown) Albumin/Globulin (units (unknown) date) Ratio (1.0-2.8) unknown) (unknown) (no (unknown) (unknown) Albumin/Globulin (units (unknown) date) Ratio 1.1 unknown) (1.0-2.8) (unknown) (no (unknown) (unknown) Alkaline (units (unkno wn) date) Phosphatase unknown) (38-126) U/L (unknown) (no (unknown) (unknown) Alkaline (units (unkno wn) date) Phosphatase 428 H unknown) (38-126) U/L (unknown) (no (unknown) (unknown) Allergies (units (unkn own) date) unknown) (unknown) (no (unknown) (unknown) Allergy/AdvReac (units (unknown) date) Type Severity unknown) Reaction Status Date / Time (unknown) (no (unknown) (unknown) BACK: No flank (units (unknown) date) tenderness. unknown) (unknown) (no (unknown) (unknown) BNP [NT-proBNP (units (unknown) date) (BNP-Adult 18+)] unknown) Stat (unknown) (no (unknown) (unknown) BUN (9-20) mg/dL (units (unknown) date) unknown) (unknown) (no (unknown) (unknown) BUN 34 H (9-20) (units (unknown) date) mg/dL unknown) (unknown) (no (unknown) (unknown) BUN/Creatinine (units (unknown) date) Ratio (6-22) unknown) (unknown) (no (unknown) (unknown) BUN/Creatinine (units (unknown) date) Ratio 34.3 H unknown) (6-22) (unknown) (no (unknown) (unknown) Baso # (Auto) (units ( unknown) date) (0-100) /uL unknown) (unknown) (no (unknown) (unknown) Baso # (Auto) (units ( unknown) date) 100 (0-100) /uL unknown) (unknown) (no (unknown) (unknown) Baso % (Auto) (units ( unknown) date) (0-2) % unknown) (unknown) (no (unknown) (unknown) Baso % (Auto) (units ( unknown) date) 0.8 (0-2) % unknown) (unknown) (no (unknown) (unknown) Blood Culture (units ( unknown) date) Stat unknown) (unknown) (no (unknown) (unknown) Blood Pressure (units (unknown) date) 134/61 141/67 H unknown) (unknown) (no (unknown) (unknown) Blood Pressure (units (unknown) date) 141/57 H unknown) (unknown) (no (unknown) (unknown) Blood Pressure (units (unknown) date) 142/67 H unknown) (unknown) (no (unknown) (unknown) Blood Pressure (units (unknown) date) 144/68 H 06/16/22 unknown) 12:21 (unknown) (no (unknown) (unknown) Blood Pressure (units (unknown) date) 144/68 H 144/68 H unknown) (unknown) (no (unknown) (unknown) Blood Pressure (units (unknown) date) 145/69 H unknown) (unknown) (no (unknown) (unknown) CARDIOVASCULAR: (units (unknown) date) Regular rate and unknown) rhythm without murmurs (unknown) (no (unknown) (unknown) CARDIOVASCULAR: (units (unknown) date) negative chest unknown) pain, palpitations (unknown) (no (unknown) (unknown) CC: Weakness (units (u nknown) date) weight loss night unknown) sweats (unknown) (no (unknown) (unknown) CK-MB (CK-2) Rel (units (unknown) date) Index TNP unknown) (unknown) (no (unknown) (unknown) CK-MB (CK-2) Rel (units (unknown) date) Index unknown) (unknown) (no (unknown) (unknown) CK-MB (CK-2) TNP (units (unknown) date) unknown) (unknown) (no (unknown) (unknown) CK-MB (CK-2) (units (u nknown) date) unknown) (unknown) (no (unknown) (unknown) CT chest w con (units (unknown) date) Stat unknown) (unknown) (no (unknown) (unknown) CT head/brain wo (units (unknown) date) con Stat unknown) (unknown) (no (unknown) (unknown) Calcium (units (unkno wn) date) (8.4-10.2) mg/dL unknown) (unknown) (no (unknown) (unknown) Calcium 8.1 L (units ( unknown) date) (8.4-10.2) mg/dL unknown) (unknown) (no (unknown) (unknown) Carbon Dioxide (units (unknown) date) (22-32) mmol/L unknown) (unknown) (no (unknown) (unknown) Carbon Dioxide (units (unknown) date) 28 (22-32) mmol/L unknown) (unknown) (no (unknown) (unknown) Chief complaint: (units (unknown) date) Weakness unknown) (unknown) (no (unknown) (unknown) Chloride (units (unkno wn) date) (98-107) mmol/L unknown) (unknown) (no (unknown) (unknown) Chloride 99 (units (un known) date) (98-107) mmol/L unknown) (unknown) (no (unknown) (unknown) Complete Blood (units (unknown) date) Count AUTO DIFF unknown) Stat (unknown) (no (unknown) (unknown) Complicating (units (u nknown) date) co-morbidities: unknown) History of melanoma (unknown) (no (unknown) (unknown) Comprehensive (units ( unknown) date) Metabolic Panel unknown) Stat (unknown) (no (unknown) (unknown) Consultations: (units (unknown) date) unknown) (unknown) (no (unknown) (unknown) Course (units (unkno wn) date) unknown) (unknown) (no (unknown) (unknown) Covid-19 + FLU (units (unknown) date) A/B + RSV - PCR unknown) Stat (unknown) (no (unknown) (unknown) Creatinine (units (unk nown) date) (0.66-1.25) mg/dL unknown) (unknown) (no (unknown) (unknown) Creatinine 0.99 (units (unknown) date) (0.66-1.25) mg/dL unknown) (unknown) (no (unknown) (unknown) : 1935 (units (unknown) date) Acct:[id number] unknown) (unknown) (no (unknown) (unknown) Data collected (units (unknown) date) from: Patient and unknown) and patient's stave bolt equalizer as well as ER (unknown) (no (unknown) (unknown) Date of Service: (units (unknown) date) 06/16/22 unknown) (unknown) (no (unknown) (unknown) Departure (units (unkn own) date) unknown) (unknown) (no (unknown) (unknown) Diagnosis: (units (unk nown) date) unknown) (unknown) (no (unknown) (unknown) Differential (units (u nknown) date) considered: unknown) Includes but not limited to neoplastic process, (unknown) (no (unknown) (unknown) Discharge Plan (units (unknown) date) unknown) (unknown) (no (unknown) (unknown) Discontinued (units (u nknown) date) Medications unknown) (unknown) (no (unknown) (unknown) Discussion: (units (un known) date) unknown) (unknown) (no (unknown) (unknown) Documented By: (units (unknown) date) JG unknown) (unknown) (no (unknown) (unknown) Documented By: (units (unknown) date) RLS unknown) (unknown) (no (unknown) (unknown) ED Orders (units (unkn own) date) unknown) (unknown) (no (unknown) (unknown) EKG-12 Lead Stat (units (unknown) date) unknown) (unknown) (no (unknown) (unknown) ENT: Slightly (units ( unknown) date) dry lips and unknown) mucous membranes (unknown) (no (unknown) (unknown) ER Physician: (units ( unknown) date) Matt Swartz MD unknown) (unknown) (no (unknown) (unknown) EXTREMITIES: No (units (unknown) date) gross unknown) deformities. (unknown) (no (unknown) (unknown) EYES: Pupils (units (u nknown) date) equal round unknown) (unknown) (no (unknown) (unknown) Emergency Report (units (unknown) date) unknown) (unknown) (no (unknown) (unknown) Eos # (Auto) (units (u nknown) date) (0-450) /uL unknown) (unknown) (no (unknown) (unknown) Eos # (Auto) 0 (units (unknown) date) (0-450) /uL unknown) (unknown) (no (unknown) (unknown) Eos % (Auto) (units (u nknown) date) (2-4) % unknown) (unknown) (no (unknown) (unknown) Eos % (Auto) 0.1 (units (unknown) date) L (2-4) % unknown) (unknown) (no (unknown) (unknown) Estimated GFR > (units (unknown) date) 60 (>60) mL/min unknown) (unknown) (no (unknown) (unknown) Estimated GFR (units ( unknown) date) (>60) mL/min unknown) (unknown) (no (unknown) (unknown) Exam Narrative: (units (unknown) date) unknown) (unknown) (no (unknown) (unknown) Exam documented (units (unknown) date) above, pertinent unknown) findings include: Cachectic-appeari ng dry (unknown) (no (unknown) (unknown) Exam (units (unkno wn) date) unknown) (unknown) (no (unknown) (unknown) GASTROINTESTINAL (units (unknown) date) : Abdomen soft, unknown) non-tender (unknown) (no (unknown) (unknown) GASTROINTESTINAL (units (unknown) date) : negative unknown) nausea, vomiting, abdominal pain (unknown) (no (unknown) (unknown) GENERAL: in no (units (unknown) date) distress, not unknown) toxic not dyspneic, is cachectic appearing (unknown) (no (unknown) (unknown) GENERAL: (units (unkno wn) date) negative chills, unknown) positive fatigue, malaise, dizzy negative fever, (unknown) (no (unknown) (unknown) : negative (units (u nknown) date) dysuria, unknown) frequency, hematuria (unknown) (no (unknown) (unknown) General (units (unkno wn) date) unknown) (unknown) (no (unknown) (unknown) Globulin (units (o wn) date) (1.7-4.1) g/dL unknown) (unknown) (no (unknown) (unknown) Globulin 2.7 (units (u nknown) date) (1.7-4.1) g/dL unknown) (unknown) (no (unknown) (unknown) Glucose (80-110) (units (unknown) date) mg/dL unknown) (unknown) (no (unknown) (unknown) Glucose 146 H (units ( unknown) date) (80-110) mg/dL unknown) (unknown) (no (unknown) (unknown) HEAD: (units (o wn) date) Normocephalic. unknown) (unknown) (no (unknown) (unknown) HEENT: negative (units (unknown) date) sinus pain, ear unknown) pain, sore throat (unknown) (no (unknown) (unknown) HPI - Weakness (units (unknown) date) unknown) (unknown) (no (unknown) (unknown) HPI Narrative: (units (unknown) date) unknown) (unknown) (no (unknown) (unknown) Hct (41-53) % (units ( unknown) date) unknown) (unknown) (no (unknown) (unknown) Hct 46.6 (41-53) (units (unknown) date) % unknown) (unknown) (no (unknown) (unknown) Hgb (13.5-17.5) (units (unknown) date) g/dL unknown) (unknown) (no (unknown) (unknown) Hgb 15.4 (units (unkno wn) date) (13.5-17.5) g/dL unknown) (unknown) (no (unknown) (unknown) History of (units (unk nown) date) Present Illness unknown) (unknown) (no (unknown) (unknown) Home Medications (units (unknown) date) unknown) (unknown) (no (unknown) (unknown) INR (0.9-1.3) (units ( unknown) date) unknown) (unknown) (no (unknown) (unknown) INR 1.5 H (units (unkn own) date) (0.9-1.3) unknown) (unknown) (no (unknown) (unknown) Imaging studies (units (unknown) date) independently unknown) reviewed: Chest x-ray no acute process (unknown) (no (unknown) (unknown) Independently (units ( unknown) date) reviewed EKG as unknown) above atrial sensed ventricular paced rhythm rate (unknown) (no (unknown) (unknown) Influenza A (units (un known) date) (RT-PCR) unknown) (NEGATIVE) (unknown) (no (unknown) (unknown) Influenza A (units (un known) date) (RT-PCR) Flu a unknown) negative (NEGATIVE) (unknown) (no (unknown) (unknown) Influenza B (units (un known) date) (RT-PCR) unknown) (NEGATIVE) (unknown) (no (unknown) (unknown) Influenza B (units (un known) date) (RT-PCR) Flu b unknown) negative (NEGATIVE) (unknown) (no (unknown) (unknown) Initial Vital (units ( unknown) date) Signs unknown) (unknown) (no (unknown) (unknown) Initial Vital (units ( unknown) date) Signs: unknown) (unknown) (no (unknown) (unknown) [facility] (units (unknown) date) [address] unknown) [place] [address] (unknown) (no (unknown) (unknown) Lab Data (units (unkno wn) date) unknown) (unknown) (no (unknown) (unknown) Lab Results (units (un known) date) unknown) (unknown) (no (unknown) (unknown) Lab Test results (units (unknown) date) independently unknown) reviewed as above. Pertinent findings: WBC 9.6 (unknown) (no (unknown) (unknown) Labs: (units (unkno wn) date) unknown) (unknown) (no (unknown) (unknown) Lactate (units (unkno wn) date) (0.7-2.1) mmol/L unknown) (unknown) (no (unknown) (unknown) Lactate (Lactic (units (unknown) date) Acid) Stat unknown) (unknown) (no (unknown) (unknown) Lactate 4.3 H* (units (unknown) date) (0.7-2.1) mmol/L unknown) (unknown) (no (unknown) (unknown) Lucien Lan (units (unknown) date) MD Yudi [Primary unknown) Care Provider] (unknown) (no (unknown) (unknown) Last Infusion: (units (unknown) date) 06/16/22 14:09 unknown) Dose: 0 mls/hr (unknown) (no (unknown) (unknown) Lipase (23-300) (units (unknown) date) U/L unknown) (unknown) (no (unknown) (unknown) Lipase 45 (units (unkn own) date) (23-300) U/L unknown) (unknown) (no (unknown) (unknown) Lipase Stat (units (un known) date) unknown) (unknown) (no (unknown) (unknown) Lymph # (Auto) (units (unknown) date) (4616-9133) /uL unknown) (unknown) (no (unknown) (unknown) Lymph # (Auto) (units (unknown) date) 400 L (5874-6056) unknown) /uL (unknown) (no (unknown) (unknown) Lymph % (Auto) (units (unknown) date) (25-40) % unknown) (unknown) (no (unknown) (unknown) Lymph % (Auto) (units (unknown) date) 4.6 L (25-40) % unknown) (unknown) (no (unknown) (unknown) MCH (26-34) PG (units (unknown) date) unknown) (unknown) (no (unknown) (unknown) MCH 30.4 (26-34) (units (unknown) date) PG unknown) (unknown) (no (unknown) (unknown) MCHC (30-36) % (units (unknown) date) unknown) (unknown) (no (unknown) (unknown) MCHC 33.0 (units (unkn own) date) (30-36) % unknown) (unknown) (no (unknown) (unknown) MCV (80-100) fL (units (unknown) date) unknown) (unknown) (no (unknown) (unknown) MCV 92.4 (units (unkno wn) date) (80-100) fL unknown) (unknown) (no (unknown) (unknown) MDM - Weakness (units (unknown) date) unknown) (unknown) (no (unknown) (unknown) MDM Narrative (units ( unknown) date) unknown) (unknown) (no (unknown) (unknown) MDM (units (unkno wn) date) unknown) (unknown) (no (unknown) (unknown) MUSCULOSKELETAL: (units (unknown) date) negative muscle unknown) or bony pain (unknown) (no (unknown) (unknown) Medical decision (units (unknown) date) making narrative: unknown) (unknown) (no (unknown) (unknown) Medical records (units (unknown) date) reviewed: ER unknown) visits from a few days ago (unknown) (no (unknown) (unknown) Medication (units (unk nown) date) Instructions unknown) Recorded Confirmed (unknown) (no (unknown) (unknown) Mode of arrival: (units (unknown) date) Wheelchair unknown) (unknown) (no (unknown) (unknown) [place] # (Auto) (units ( unknown) date) (0-900) /uL unknown) (unknown) (no (unknown) (unknown) [place] # (Auto) (units ( unknown) date) 900 (0-900) /uL unknown) (unknown) (no (unknown) (unknown) [place] % (Auto) (units ( unknown) date) (3-14) % unknown) (unknown) (no (unknown) (unknown) [place] % (Auto) (units ( unknown) date) 9.4 (3-14) % unknown) (unknown) (no (unknown) (unknown) NECK: Trachea (units ( unknown) date) midline. unknown) (unknown) (no (unknown) (unknown) NEURO: AOx4. (units (u nknown) date) Clear speech no unknown) facial droop light touch intact to bilateral face (unknown) (no (unknown) (unknown) NEUROLOGIC: (units (un known) date) negative unknown) weakness, numbness (unknown) (no (unknown) (unknown) NT-Pro-B (units (unkno wn) date) Natriuret Pep unknown) (<450) pg/mL (unknown) (no (unknown) (unknown) NT-Pro-B (units (unkno wn) date) Natriuret Pep unknown) 1430 H (<450) pg/mL (unknown) (no (unknown) (unknown) Narrative (units (unkn own) date) unknown) (unknown) (no (unknown) (unknown) Narrative: (units (unk nown) date) unknown) (unknown) (no (unknown) (unknown) Neut # (Auto) (units ( unknown) date) (2915-2829) /uL unknown) (unknown) (no (unknown) (unknown) Neut # (Auto) (units ( unknown) date) 8200 H unknown) (4990-1686) /uL (unknown) (no (unknown) (unknown) Neut % (Auto) (units ( unknown) date) (50-75) % unknown) (unknown) (no (unknown) (unknown) Neut % (Auto) (units ( unknown) date) 85.1 H (50-75) % unknown) (unknown) (no (unknown) (unknown) No Action (units (unkn own) date) unknown) (unknown) (no (unknown) (unknown) No Known Home (units ( unknown) date) Medications unknown) 12/20/20 12/20/20 (unknown) (no (unknown) (unknown) No Known Home (units ( unknown) date) Medications unknown) (unknown) (no (unknown) (unknown) Ondansetron HCl (units (unknown) date) (Ondansetron 4 unknown) Mg/2 Ml Inj) 4 mg IV NOW PRN (unknown) (no (unknown) (unknown) Ordered: (units (unkno wn) date) unknown) (unknown) (no (unknown) (unknown) Orders (units (unkno wn) date) unknown) (unknown) (no (unknown) (unknown) Oxygen Delivery (units (unknown) date) Method 06/16/22 unknown) 12:21 (unknown) (no (unknown) (unknown) Oxygen Delivery (units (unknown) date) Method Room Air unknown) (unknown) (no (unknown) (unknown) Oxygen Delivery (units (unknown) date) Method unknown) (unknown) (no (unknown) (unknown) PRN Reason: (units (un known) date) Nausea And unknown) Vomiting (unknown) (no (unknown) (unknown) PSYCH: Not (units (unk nown) date) anxious, is unknown) cooperative (unknown) (no (unknown) (unknown) PT (10.1-12.7) (units (unknown) date) SECONDS unknown) (unknown) (no (unknown) (unknown) PT 17.6 H (units (unkn own) date) (10.1-12.7) unknown) SECONDS (unknown) (no (unknown) (unknown) Partial (units (unkno wn) date) Thromboplastin unknown) Time Stat (unknown) (no (unknown) (unknown) Patient History (units (unknown) date) unknown) (unknown) (no (unknown) (unknown) Patient brought (units (unknown) date) in by from unknown) Cardiology office for routine office visit. I (unknown) (no (unknown) (unknown) Patient: (units (unkno wn) date) Yoseph Cardoso unknown) MR#: [id number] (unknown) (no (unknown) (unknown) Plt Count (units (unkn own) date) (150-400) X103/uL unknown) (unknown) (no (unknown) (unknown) Plt Count 222 (units ( unknown) date) (150-400) X103/uL unknown) (unknown) (no (unknown) (unknown) Potassium (units (unkn own) date) (3.4-5.1) mmol/L unknown) (unknown) (no (unknown) (unknown) Potassium 4.8 (units ( unknown) date) (3.4-5.1) mmol/L unknown) (unknown) (no (unknown) (unknown) Prescriptions: (units (unknown) date) unknown) (unknown) (no (unknown) (unknown) Procalcitonin (units ( unknown) date) (<0.5) ng/mL unknown) (unknown) (no (unknown) (unknown) Procalcitonin (units ( unknown) date) 3.27 H (<0.5) unknown) ng/mL (unknown) (no (unknown) (unknown) Procalcitonin (units ( unknown) date) Stat unknown) (unknown) (no (unknown) (unknown) Prothrombin Time (units (unknown) date) INR Stat unknown) (unknown) (no (unknown) (unknown) Pulse Oximetry (units (unknown) date) 100 96 unknown) (unknown) (no (unknown) (unknown) Pulse Oximetry (units (unknown) date) 91 93 unknown) (unknown) (no (unknown) (unknown) Pulse Oximetry (units (unknown) date) 96 96 unknown) (unknown) (no (unknown) (unknown) Pulse Oximetry (units (unknown) date) 98 06/16/22 12:21 unknown) (unknown) (no (unknown) (unknown) Pulse Oximetry (units (unknown) date) 98 93 unknown) (unknown) (no (unknown) (unknown) Pulse Oximetry (units (unknown) date) 98 unknown) (unknown) (no (unknown) (unknown) Pulse Rate 70 72 (units (unknown) date) unknown) (unknown) (no (unknown) (unknown) Pulse Rate 71 73 (units (unknown) date) unknown) (unknown) (no (unknown) (unknown) Pulse Rate 73 75 (units (unknown) date) unknown) (unknown) (no (unknown) (unknown) Pulse Rate 76 (units ( unknown) date) unknown) (unknown) (no (unknown) (unknown) Pulse Rate 78 (units ( unknown) date) 06/16/22 12:21 unknown) (unknown) (no (unknown) (unknown) Pulse Rate 78 79 (units (unknown) date) unknown) (unknown) (no (unknown) (unknown) RBC (4.5-5.9) (units ( unknown) date) X106/uL unknown) (unknown) (no (unknown) (unknown) RBC 5.05 (units (unkno wn) date) (4.5-5.9) X106/uL unknown) (unknown) (no (unknown) (unknown) RDW (11.6-14.8) (units (unknown) date) % unknown) (unknown) (no (unknown) (unknown) RDW 14.4 (units (unkno wn) date) (11.6-14.8) % unknown) (unknown) (no (unknown) (unknown) RESPIRATORY: (units (un known) date) Clear to unknown) auscultation. Breath sounds equal bilaterally. No wheezes, (unknown) (no (unknown) (unknown) RESPIRATORY: (units (u nknown) date) negative dyspnea, unknown) cough (unknown) (no (unknown) (unknown) ROS Unobtainable: (units (unknown) date) All systems unknown) reviewed + are unremarkable except as noted in HPI (unknown) (no (unknown) (unknown) RSV (PCR) (units (unkn own) date) (Negative) unknown) (unknown) (no (unknown) (unknown) RSV (PCR) (units (unkn own) date) Negative unknown) (Negative) (unknown) (no (unknown) (unknown) RT Consult Eval (units (unknown) date) and Treat NOW unknown) (unknown) (no (unknown) (unknown) Re-evaluations: (units (unknown) date) unknown) (unknown) (no (unknown) (unknown) Referrals: (units (unk nown) date) unknown) (unknown) (no (unknown) (unknown) Related Data (units (u nknown) date) unknown) (unknown) (no (unknown) (unknown) Respiratory Rate (units (unknown) date) 17 16 unknown) (unknown) (no (unknown) (unknown) Respiratory Rate (units (unknown) date) 20 13 unknown) (unknown) (no (unknown) (unknown) Respiratory Rate (units (unknown) date) 22 06/16/22 12:21 unknown) (unknown) (no (unknown) (unknown) Respiratory Rate (units (unknown) date) 22 14 unknown) (unknown) (no (unknown) (unknown) Respiratory Rate (units (unknown) date) 22 unknown) (unknown) (no (unknown) (unknown) Review of (units (unkn own) date) Systems unknown) (unknown) (no (unknown) (unknown) SARS-CoV-2 (PCR) (units (unknown) date) (Negative) unknown) (unknown) (no (unknown) (unknown) SARS-CoV-2 (PCR) (units (unknown) date) Negative unknown) (Negative) (unknown) (no (unknown) (unknown) SKIN: Warm and (units (unknown) date) dry unknown) (unknown) (no (unknown) (unknown) SKIN: negative (units (unknown) date) rash, skin unknown) lesions (unknown) (no (unknown) (unknown) Signed By: (units (unk nown) date) unknown) (unknown) (no (unknown) (unknown) Smoking Status: (units (unknown) date) Smoker, status unknown) unknown (unknown) (no (unknown) (unknown) Social History (units (unknown) date) (Reviewed unknown) 06/16/22 @ 14:04 by Matt Swartz MD) (unknown) (no (unknown) (unknown) Sodium (137-145) (units (unknown) date) mmol/L unknown) (unknown) (no (unknown) (unknown) Sodium 135 L (units (u nknown) date) (137-145) mmol/L unknown) (unknown) (no (unknown) (unknown) Sodium Chloride (units (unknown) date) (Normal Saline unknown) 0.9%) 1,000 mls @ 1,000 mls/hr IV BOLUS ONE (unknown) (no (unknown) (unknown) Source: patient (units (unknown) date) and family unknown) (unknown) (no (unknown) (unknown) Stated (units (unkno wn) date) complaint: Pain unknown) near pacemaker (unknown) (no (unknown) (unknown) Stop: 06/16/22 (units (unknown) date) 13:43 unknown) (unknown) (no (unknown) (unknown) Substance Use (units ( unknown) date) Type: does not unknown) use (unknown) (no (unknown) (unknown) Time Seen by (units (u nknown) date) Provider: unknown) 06/16/22 12:46 (unknown) (no (unknown) (unknown) Total Bilirubin (units (unknown) date) (0.2-1.3) mg/dL unknown) (unknown) (no (unknown) (unknown) Total Bilirubin (units (unknown) date) 2.1 H (0.2-1.3) unknown) mg/dL (unknown) (no (unknown) (unknown) Total Creatine (units (unknown) date) Kinase (55-170) unknown) U/L (unknown) (no (unknown) (unknown) Total Creatine (units (unknown) date) Kinase 53 L unknown) (55-170) U/L (unknown) (no (unknown) (unknown) Total Protein (units ( unknown) date) (6.3-8.2) g/dL unknown) (unknown) (no (unknown) (unknown) Total Protein (units ( unknown) date) 5.8 L (6.3-8.2) unknown) g/dL (unknown) (no (unknown) (unknown) Treatments: (units (un known) date) unknown) (unknown) (no (unknown) (unknown) Troponin + CK (units ( unknown) date) Cardiac Panel unknown) Stat (unknown) (no (unknown) (unknown) Troponin I < (units (u nknown) date) 0.012 unknown) (0.01-0.034) ng/mL (unknown) (no (unknown) (unknown) Troponin I (units (unk nown) date) (0.01-0.034) unknown) ng/mL (unknown) (no (unknown) (unknown) Vital Signs - 8 (units (unknown) date) hr unknown) (unknown) (no (unknown) (unknown) Vital Signs (units (un known) date) unknown) (unknown) (no (unknown) (unknown) Vital signs: (units (u nknown) date) unknown) (unknown) (no (unknown) (unknown) WBC (4.5-11.0) (units (unknown) date) X103/uL unknown) (unknown) (no (unknown) (unknown) WBC 9.6 (units (unkno wn) date) (4.5-11.0) unknown) X103/uL (unknown) (no (unknown) (unknown) [facility] (units (unknown) date) ER for evaluation unknown) of dark urine. CT abdomen pelvis were done, (unknown) (no (unknown) (unknown) XR chest 1V Stat (units (unknown) date) unknown) (unknown) (no (unknown) (unknown) [Embedded Image (units (unknown) date) Not Available] unknown) (unknown) (no (unknown) (unknown) [From Prevnar] (units (unknown) date) and feet x unknown) (unknown) (no (unknown) (unknown) after. (units (unkno wn) date) unknown) (unknown) (no (unknown) (unknown) alcohol intake (units (unknown) date) frequency: a few unknown) times a month (unknown) (no (unknown) (unknown) and below (units (unkn own) date) unknown) (unknown) (no (unknown) (unknown) appearing (units (unkn own) date) unknown) (unknown) (no (unknown) (unknown) conjugate to of (units (unknown) date) hands unknown) (unknown) (no (unknown) (unknown) denies any chest (units (unknown) date) pain back pain unknown) abdominal pain or headache. (unknown) (no (unknown) (unknown) facial droop. (units ( unknown) date) Fast exam is unknown) negative. Cardiology does not feel this is cardiac (unknown) (no (unknown) (unknown) facial droop. (units ( unknown) date) Fast exam is unknown) negative. 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 (unknown) (no (unknown) (unknown) health/weight (units ( unknown) date) loss cachexia and unknown) balance issues. He had concern for neoplastic (unknown) (no (unknown) (unknown) hemoglobin 15.4 (units (unknown) date) hematocrit 46.6 unknown) platelets 222 PT 17.6 INR 1.5 PTT 38 sodium 135 (unknown) (no (unknown) (unknown) lactic acid have (units (unknown) date) been ordered unknown) (unknown) (no (unknown) (unknown) no acute process (units (unknown) date) other than unknown) diverticulosis without diverticulitis. states (unknown) (no (unknown) (unknown) pain back pain (units (unknown) date) headache unknown) (unknown) (no (unknown) (unknown) patient has had (units (unknown) date) 30 lb weight loss unknown) in the past few months with night sweats it in (unknown) (no (unknown) (unknown) pneumococcal (units (u nknown) date) 7-valent AdvReac unknown) Intermediate swelling Verified 06/16/22 12:46 (unknown) (no (unknown) (unknown) positive night (units (unknown) date) sweats. Positive unknown) weight loss (unknown) (no (unknown) (unknown) potassium 4.8 (units ( unknown) date) BUN 34 creatinine unknown) 0.99 glucose 146 lactic acid 4.3. BNP 1430 (unknown) (no (unknown) (unknown) process. I spoke (units (unknown) date) with dr gillette. unknown) However, patient was recently seen at (unknown) (no (unknown) (unknown) [facility], or (units (unkn own) date) [facility]. unknown) (unknown) (no (unknown) (unknown) related. Patient (units (unknown) date) here for routine unknown) annual cardiac workup/checkup. Patient (unknown) (no (unknown) (unknown) shuffled gait. (units (unknown) date) Generalized unknown) weakness and malaise. 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 Patient unknown) has history of melanoma. Patient has had recently (unknown) (no (unknown) (unknown) troponin less (units ( unknown) date) than 0.012, unknown) procalcitonin 3.27 (unknown) (no (unknown) (unknown) visit from a few (units (unknown) date) days ago unknown) Result panel 200 (unknown) (no (unknown) (unknown) (no value) (units (unk nown) date) unknown) (unknown) (no (unknown) (unknown) [id number] (units (unkno wn) date) unknown) (unknown) (no (unknown) (unknown) 06/16/22 06/16/22 (units (unknown) date) 06/16/22 unknown) Range/Units (unknown) (no (unknown) (unknown) 06/16/22 06/16/22 (units (unknown) date) Range/Units unknown) (unknown) (no (unknown) (unknown) 06/16/22 12:35 (units (unknown) date) unknown) (unknown) (no (unknown) (unknown) 06/16/22 12:45 (units (unknown) date) unknown) (unknown) (no (unknown) (unknown) 06/16/22 13:01 (units (unknown) date) unknown) (unknown) (no (unknown) (unknown) 06/16/22 13:13 (units (unknown) date) unknown) (unknown) (no (unknown) (unknown) 06/16/22 13:24 (units (unknown) date) unknown) (unknown) (no (unknown) (unknown) 06/16/22 13:32 (units (unknown) date) unknown) (unknown) (no (unknown) (unknown) 06/16/22 (units (unkno wn) date) unknown) (unknown) (no (unknown) (unknown) [address] [place] [address] (units (unknown) date) unknown) (unknown) (no (unknown) (unknown) 12:21 06/16/22 (units (unknown) date) unknown) (unknown) (no (unknown) (unknown) 12:30 06/16/22 (units (unknown) date) unknown) (unknown) (no (unknown) (unknown) 12:30 (units (unkno wn) date) unknown) (unknown) (no (unknown) (unknown) 12:35 12:35 12:35 (units (unknown) date) unknown) (unknown) (no (unknown) (unknown) 12:35 12:35 (units (un known) date) unknown) (unknown) (no (unknown) (unknown) 12:45 06/16/22 (units (unknown) date) unknown) (unknown) (no (unknown) (unknown) 13:00 06/16/22 (units (unknown) date) unknown) (unknown) (no (unknown) (unknown) 13:00 (units (unkno wn) date) unknown) (unknown) (no (unknown) (unknown) 13:15 06/16/22 (units (unknown) date) unknown) (unknown) (no (unknown) (unknown) 13:15 (units (unkno wn) date) unknown) (unknown) (no (unknown) (unknown) 13:30 06/16/22 (units (unknown) date) unknown) (unknown) (no (unknown) (unknown) 13:45 06/16/22 (units (unknown) date) unknown) (unknown) (no (unknown) (unknown) 13:46 06/16/22 (units (unknown) date) unknown) (unknown) (no (unknown) (unknown) 13:46 (units (unkno wn) date) unknown) (unknown) (no (unknown) (unknown) 14:00 06/16/22 (units (unknown) date) unknown) (unknown) (no (unknown) (unknown) 14:00 (units (unkno wn) date) unknown) (unknown) (no (unknown) (unknown) 4 mos (units (unkno wn) date) unknown) (unknown) (no (unknown) (unknown) 72 (units (unkno wn) date) unknown) (unknown) (no (unknown) (unknown) ? (units (unkno wn) date) unknown) (unknown) (no (unknown) (unknown) ALT (<50) IU/L (units (unknown) date) unknown) (unknown) (no (unknown) (unknown) ALT 63 H (<50) (units (unknown) date) IU/L unknown) (unknown) (no (unknown) (unknown) APTT (26-36) (units (u nknown) date) SECONDS unknown) (unknown) (no (unknown) (unknown) APTT 38 H (26-36) (units (unknown) date) SECONDS unknown) (unknown) (no (unknown) (unknown) AST (17-59) IU/L (units (unknown) date) unknown) (unknown) (no (unknown) (unknown) AST 61 H (17-59) (units (unknown) date) IU/L unknown) (unknown) (no (unknown) (unknown) Accession Number: (units (unknown) date) [id number] ?? unknown) (unknown) (no (unknown) (unknown) Accession Number: (units (unknown) date) [id number] ?? unknown) (unknown) (no (unknown) (unknown) Accession Number: (units (unknown) date) [id number] ?? unknown) (unknown) (no (unknown) (unknown) Acct:[id number] (units (unknown) date) unknown) (unknown) (no (unknown) (unknown) Admin: 06/16/22 (units (unknown) date) 13:02 Dose: 1,000 unknown) mls/hr (unknown) (no (unknown) (unknown) After history and (units (unknown) date) exam CT head CT unknown) chest CBC CMP BNP troponin procalcitonin (unknown) (no (unknown) (unknown) After the (units (unkn own) date) administration of unknown) intravenous contrast, 5 mm thick sections acquired (unknown) (no (unknown) (unknown) Age/Sex: 86 / M (units (unknown) date) unknown) (unknown) (no (unknown) (unknown) Albumin (3.5-5.0) (units (unknown) date) g/dL unknown) (unknown) (no (unknown) (unknown) Albumin 3.1 L (units ( unknown) date) (3.5-5.0) g/dL unknown) (unknown) (no (unknown) (unknown) Albumin/Globulin (units (unknown) date) Ratio (1.0-2.8) unknown) (unknown) (no (unknown) (unknown) Albumin/Globulin (units (unknown) date) Ratio 1.1 unknown) (1.0-2.8) (unknown) (no (unknown) (unknown) Alkaline (units (unkno wn) date) Phosphatase unknown) (38-126) U/L (unknown) (no (unknown) (unknown) Alkaline (units (unkno wn) date) Phosphatase 428 H unknown) (38-126) U/L (unknown) (no (unknown) (unknown) Allergies (units (unkn own) date) unknown) (unknown) (no (unknown) (unknown) Allergy/AdvReac (units (unknown) date) Type Severity unknown) Reaction Status Date / Time (unknown) (no (unknown) (unknown) TAYLOR Moreno (units ( unknown) date) [id number] unknown) (unknown) (no (unknown) (unknown) Approved by: (units (u nknown) date) Brandyn Davis M.D. on unknown) 06/16/2022 at 13:03 ? (unknown) (no (unknown) (unknown) Approved by: (units (u nknown) date) Brandyn Davis M.D. on unknown) 06/16/2022 at 14:52 ? (unknown) (no (unknown) (unknown) Approved by: (units (u nknown) date) Brandyn Davis M.D. on unknown) 06/16/2022 at 14:54 ? (unknown) (no (unknown) (unknown) BACK: No flank (units (unknown) date) tenderness. unknown) (unknown) (no (unknown) (unknown) BNP [NT-proBNP (units (unknown) date) (BNP-Adult 18+)] unknown) Stat (unknown) (no (unknown) (unknown) BUN (9-20) mg/dL (units (unknown) date) unknown) (unknown) (no (unknown) (unknown) BUN 34 H (9-20) (units (unknown) date) mg/dL unknown) (unknown) (no (unknown) (unknown) BUN/Creatinine (units (unknown) date) Ratio (6-22) unknown) (unknown) (no (unknown) (unknown) BUN/Creatinine (units (unknown) date) Ratio 34.3 H unknown) (6-22) (unknown) (no (unknown) (unknown) Baso # (Auto) (units ( unknown) date) (0-100) /uL unknown) (unknown) (no (unknown) (unknown) Baso # (Auto) 100 (units (unknown) date) (0-100) /uL unknown) (unknown) (no (unknown) (unknown) Baso % (Auto) (units ( unknown) date) (0-2) % unknown) (unknown) (no (unknown) (unknown) Baso % (Auto) 0.8 (units (unknown) date) (0-2) % unknown) (unknown) (no (unknown) (unknown) Blood Culture (units ( unknown) date) Stat unknown) (unknown) (no (unknown) (unknown) Blood Pressure (units (unknown) date) 134/61 141/67 H unknown) (unknown) (no (unknown) (unknown) Blood Pressure (units (unknown) date) 141/57 H unknown) (unknown) (no (unknown) (unknown) Blood Pressure (units (unknown) date) 142/67 H unknown) (unknown) (no (unknown) (unknown) Blood Pressure (units (unknown) date) 144/68 H 06/16/22 unknown) 12:21 (unknown) (no (unknown) (unknown) Blood Pressure (units (unknown) date) 144/68 H 144/68 H unknown) (unknown) (no (unknown) (unknown) Blood Pressure (units (unknown) date) 145/69 H unknown) (unknown) (no (unknown) (unknown) Bones and chest (units (unknown) date) wall:? No unknown) suspicious bony lesions.? Overlying soft tissues (unknown) (no (unknown) (unknown) Bones:? No acute (units (unknown) date) or suspicious unknown) osseous abnormality. (unknown) (no (unknown) (unknown) Brain: No (units (unkn own) date) intracranial unknown) hemorrhage. Amaro-white differentiation is grossly (unknown) (no (unknown) (unknown) CARDIOVASCULAR: (units (unknown) date) Regular rate and unknown) rhythm without murmurs (unknown) (no (unknown) (unknown) CARDIOVASCULAR: (units (unknown) date) negative chest unknown) pain, palpitations (unknown) (no (unknown) (unknown) CC: Weakness (units (u nknown) date) weight loss night unknown) sweats (unknown) (no (unknown) (unknown) CK-MB (CK-2) Rel (units (unknown) date) Index TNP unknown) (unknown) (no (unknown) (unknown) CK-MB (CK-2) Rel (units (unknown) date) Index unknown) (unknown) (no (unknown) (unknown) CK-MB (CK-2) TNP (units (unknown) date) unknown) (unknown) (no (unknown) (unknown) CK-MB (CK-2) (units (u nknown) date) unknown) (unknown) (no (unknown) (unknown) COMPARISON:? (units (u nknown) date) [facility], unknown) CR, XR CHEST 1V, 06/16/2022, 12:43. (unknown) (no (unknown) (unknown) COMPARISON:? (units (u nknown) date) None. unknown) (unknown) (no (unknown) (unknown) CSF spaces: Basal (units (unknown) date) cisterns are unknown) patent. Lateral ventricles are symmetric. (unknown) (no (unknown) (unknown) CT Scan Report (units (unknown) date) unknown) (unknown) (no (unknown) (unknown) CT chest w con (units (unknown) date) Stat unknown) (unknown) (no (unknown) (unknown) CT head/brain wo (units (unknown) date) con Stat unknown) (unknown) (no (unknown) (unknown) CT scan - chest: (units (unknown) date) unknown) (unknown) (no (unknown) (unknown) CT scan - head: (units (unknown) date) unknown) (unknown) (no (unknown) (unknown) Calcium (units (unkno wn) date) (8.4-10.2) mg/dL unknown) (unknown) (no (unknown) (unknown) Calcium 8.1 L (units ( unknown) date) (8.4-10.2) mg/dL unknown) (unknown) (no (unknown) (unknown) Carbon Dioxide (units (unknown) date) (22-32) mmol/L unknown) (unknown) (no (unknown) (unknown) Carbon Dioxide 28 (units (unknown) date) (22-32) mmol/L unknown) (unknown) (no (unknown) (unknown) Chest wall and (units (unknown) date) thyroid:? unknown) Unremarkable (unknown) (no (unknown) (unknown) Chest x-ray: (units (u nknown) date) unknown) (unknown) (no (unknown) (unknown) Chief complaint: (units (unknown) date) Weakness unknown) (unknown) (no (unknown) (unknown) Chloride (98-107) (units (unknown) date) mmol/L unknown) (unknown) (no (unknown) (unknown) Chloride 99 (units (un known) date) (98-107) mmol/L unknown) (unknown) (no (unknown) (unknown) Complete Blood (units (unknown) date) Count AUTO DIFF unknown) Stat (unknown) (no (unknown) (unknown) Complicating (units (u nknown) date) co-morbidities: unknown) History of melanoma (unknown) (no (unknown) (unknown) Comprehensive (units ( unknown) date) Metabolic Panel unknown) Stat (unknown) (no (unknown) (unknown) Consultations: (units (unknown) date) unknown) (unknown) (no (unknown) (unknown) Course (units (unkno wn) date) unknown) (unknown) (no (unknown) (unknown) Covid-19 + FLU (units (unknown) date) A/B + RSV - PCR unknown) Stat (unknown) (no (unknown) (unknown) Craniofacial (units (u nknown) date) structures: No unknown) displaced fracture. Sinuses are clear. 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 on unknown) 06/16/2022 at 13:02 ? ? (unknown) (no (unknown) (unknown) Dictated by: (units (u nknown) date) Brandyn Davis M.D. on unknown) 06/16/2022 at 14:48 ? ? (unknown) (no (unknown) (unknown) Dictated by: (units (u nknown) date) Brandyn Davis M.D. on unknown) 06/16/2022 at 14:52 ? ? (unknown) (no (unknown) (unknown) Differential (units (u nknown) date) considered: unknown) Includes but not limited to neoplastic process, (unknown) (no (unknown) (unknown) Discharge Plan (units (unknown) date) unknown) (unknown) (no (unknown) (unknown) Discontinued (units (u nknown) date) Medications unknown) (unknown) (no (unknown) (unknown) Discussion: (units (un known) date) unknown) (unknown) (no (unknown) (unknown) Documented By: JG (units (unknown) date) unknown) (unknown) (no (unknown) (unknown) Documented By: (units (unknown) date) RLS unknown) (unknown) (no (unknown) (unknown) ED Orders (units (unkn own) date) unknown) (unknown) (no (unknown) (unknown) EKG-12 Lead Stat (units (unknown) date) unknown) (unknown) (no (unknown) (unknown) ENT: Slightly dry (units (unknown) date) lips and mucous unknown) membranes (unknown) (no (unknown) (unknown) ER Physician: (units ( unknown) date) Matt Swartz MD unknown) (unknown) (no (unknown) (unknown) EXTREMITIES: No (units (unknown) date) gross deformities. unknown) (unknown) (no (unknown) (unknown) EYES: Pupils (units (u nknown) date) equal round unknown) (unknown) (no (unknown) (unknown) Emergency Report (units (unknown) date) unknown) (unknown) (no (unknown) (unknown) Eos # (Auto) (units (u nknown) date) (0-450) /uL unknown) (unknown) (no (unknown) (unknown) Eos # (Auto) 0 (units (unknown) date) (0-450) /uL unknown) (unknown) (no (unknown) (unknown) Eos % (Auto) (units (u nknown) date) (2-4) % unknown) (unknown) (no (unknown) (unknown) Eos % (Auto) 0.1 (units (unknown) date) L (2-4) % unknown) (unknown) (no (unknown) (unknown) Estimated GFR > (units (unknown) date) 60 (>60) mL/min unknown) (unknown) (no (unknown) (unknown) Estimated GFR (units ( unknown) date) (>60) mL/min unknown) (unknown) (no (unknown) (unknown) Exam Narrative: (units (unknown) date) unknown) (unknown) (no (unknown) (unknown) Exam documented (units (unknown) date) above, pertinent unknown) findings include: Cachectic-appearin g dry (unknown) (no (unknown) (unknown) Exam (units (unkno wn) date) unknown) (unknown) (no (unknown) (unknown) FINDINGS:? (units (unk nown) date) unknown) (unknown) (no (unknown) (unknown) GASTROINTESTINAL: (units (unknown) date) Abdomen soft, unknown) non-tender (unknown) (no (unknown) (unknown) GASTROINTESTINAL: (units (unknown) date) negative nausea, unknown) vomiting, abdominal pain (unknown) (no (unknown) (unknown) GENERAL: in no (units (unknown) date) distress, not unknown) toxic not dyspneic, is cachectic appearing (unknown) (no (unknown) (unknown) GENERAL: negative (units (unknown) date) chills, positive unknown) fatigue, malaise, dizzy negative fever, (unknown) (no (unknown) (unknown) : negative (units (u nknown) date) dysuria, unknown) frequency, hematuria (unknown) (no (unknown) (unknown) General (units (unkno wn) date) unknown) (unknown) (no (unknown) (unknown) Globulin (units (unkno wn) date) (1.7-4.1) g/dL unknown) (unknown) (no (unknown) (unknown) Globulin 2.7 (units (u nknown) date) (1.7-4.1) g/dL unknown) (unknown) (no (unknown) (unknown) Glucose (80-110) (units (unknown) date) mg/dL unknown) (unknown) (no (unknown) (unknown) Glucose 146 H (units ( unknown) date) (80-110) mg/dL unknown) (unknown) (no (unknown) (unknown) HEAD: (units (unkno wn) date) Normocephalic. unknown) (unknown) (no (unknown) (unknown) HEENT: negative (units (unknown) date) sinus pain, ear unknown) pain, sore throat (unknown) (no (unknown) (unknown) HPI - Weakness (units (unknown) date) unknown) (unknown) (no (unknown) (unknown) HPI Narrative: (units (unknown) date) unknown) (unknown) (no (unknown) (unknown) Hct (41-53) % (units ( unknown) date) unknown) (unknown) (no (unknown) (unknown) Hct 46.6 (41-53) (units (unknown) date) % unknown) (unknown) (no (unknown) (unknown) Hgb (13.5-17.5) (units (unknown) date) g/dL unknown) (unknown) (no (unknown) (unknown) Hgb 15.4 (units (unkno wn) date) (13.5-17.5) g/dL unknown) (unknown) (no (unknown) (unknown) History of (units (unk nown) date) Present Illness unknown) (unknown) (no (unknown) (unknown) Home Medications (units (unknown) date) unknown) (unknown) (no (unknown) (unknown) IMPRESSION:? (units (u nknown) date) Bibasilar unknown) infectious or inflammatory pulmonary opacities.? (unknown) (no (unknown) (unknown) IMPRESSION:? No (units (unknown) date) acute intracranial unknown) abnormality.? If there is concern for (unknown) (no (unknown) (unknown) IMPRESSION:? (units (u nknown) date) Possible mild unknown) right and retrocardiac opacities could represent (unknown) (no (unknown) (unknown) INDICATIONS:? (units ( unknown) date) altered mental unknown) status (unknown) (no (unknown) (unknown) INDICATIONS:? (units ( unknown) date) chest pain unknown) (unknown) (no (unknown) (unknown) INDICATIONS:? (units ( unknown) date) suspected sepsis unknown) (unknown) (no (unknown) (unknown) INR (0.9-1.3) (units ( unknown) date) unknown) (unknown) (no (unknown) (unknown) INR 1.5 H (units (unkn own) date) (0.9-1.3) unknown) (unknown) (no (unknown) (unknown) Image quality:? (units (unknown) date) Good unknown) (unknown) (no (unknown) (unknown) Imaging Data (units (u nknown) date) unknown) (unknown) (no (unknown) (unknown) Imaging studies (units (unknown) date) independently unknown) reviewed: Chest x-ray no acute process (unknown) (no (unknown) (unknown) Independently (units ( unknown) date) reviewed EKG as unknown) above atrial sensed ventricular paced rhythm rate (unknown) (no (unknown) (unknown) Influenza A (units (un known) date) (RT-PCR) unknown) (NEGATIVE) (unknown) (no (unknown) (unknown) Influenza A (units (un known) date) (RT-PCR) Flu a unknown) negative (NEGATIVE) (unknown) (no (unknown) (unknown) Influenza B (units (un known) date) (RT-PCR) unknown) (NEGATIVE) (unknown) (no (unknown) (unknown) Influenza B (units (un known) date) (RT-PCR) Flu b unknown) negative (NEGATIVE) (unknown) (no (unknown) (unknown) Initial Vital (units ( unknown) date) Signs unknown) (unknown) (no (unknown) (unknown) Initial Vital (units ( unknown) date) Signs: unknown) (unknown) (no (unknown) (unknown) [facility] (units (unknown) date) [address] unknown) [place] [address] (unknown) (no (unknown) (unknown) [facility] (units (unknown) date) unknown) (unknown) (no (unknown) (unknown) Lab Data (units (unkno wn) date) unknown) (unknown) (no (unknown) (unknown) Lab Results (units (un known) date) unknown) (unknown) (no (unknown) (unknown) Lab Test results (units (unknown) date) independently unknown) reviewed as above. Pertinent findings: WBC 9.6 (unknown) (no (unknown) (unknown) Labs: (units (unkno wn) date) unknown) (unknown) (no (unknown) (unknown) Lactate (0.7-2.1) (units (unknown) date) mmol/L unknown) (unknown) (no (unknown) (unknown) Lactate (Lactic (units (unknown) date) Acid) Stat unknown) (unknown) (no (unknown) (unknown) Lactate 4.3 H* (units (unknown) date) (0.7-2.1) mmol/L unknown) (unknown) (no (unknown) (unknown) Lucien Lan (units (unknown) date) MD Yudi [Primary unknown) Care Provider] (unknown) (no (unknown) (unknown) Last Infusion: (units (unknown) date) 06/16/22 14:09 unknown) Dose: 0 mls/hr (unknown) (no (unknown) (unknown) Lipase (23-300) (units (unknown) date) U/L unknown) (unknown) (no (unknown) (unknown) Lipase 45 (units (unkn own) date) (23-300) U/L unknown) (unknown) (no (unknown) (unknown) Lipase Stat (units (un known) date) unknown) (unknown) (no (unknown) (unknown) Loc: ED (units (unkno wn) date) unknown) (unknown) (no (unknown) (unknown) Lungs and (units (unkn own) date) pleura:? Bilateral unknown) [id number] pleural effusions, slightly (unknown) (no (unknown) (unknown) Lungs and pleura:? (units (unknown) date) Low lung volumes.? unknown) Possible mild right and retrocardiac basal (unknown) (no (unknown) (unknown) Lymph # (Auto) (units (unknown) date) (4998-2164) /uL unknown) (unknown) (no (unknown) (unknown) Lymph # (Auto) (units (unknown) date) 400 L (2659-5909) unknown) /uL (unknown) (no (unknown) (unknown) Lymph % (Auto) (units (unknown) date) (25-40) % unknown) (unknown) (no (unknown) (unknown) Lymph % (Auto) (units (unknown) date) 4.6 L (25-40) % unknown) (unknown) (no (unknown) (unknown) MCH (26-34) PG (units (unknown) date) unknown) (unknown) (no (unknown) (unknown) MCH 30.4 (26-34) (units (unknown) date) PG unknown) (unknown) (no (unknown) (unknown) MCHC (30-36) % (units (unknown) date) unknown) (unknown) (no (unknown) (unknown) MCHC 33.0 (30-36) (units (unknown) date) % unknown) (unknown) (no (unknown) (unknown) MCV (80-100) fL (units (unknown) date) unknown) (unknown) (no (unknown) (unknown) MCV 92.4 (80-100) (units (unknown) date) fL unknown) (unknown) (no (unknown) (unknown) MDM - Weakness (units (unknown) date) unknown) (unknown) (no (unknown) (unknown) MDM Narrative (units ( unknown) date) unknown) (unknown) (no (unknown) (unknown) MDM (units (unkno wn) date) unknown) (unknown) (no (unknown) (unknown) MR#: [id number] (units (unknown) date) unknown) (unknown) (no (unknown) (unknown) MUSCULOSKELETAL: (units (unknown) date) negative muscle or unknown) bony pain (unknown) (no (unknown) (unknown) Mediastinum, (units (u nknown) date) heart, and unknown) esophagus:? No hiatal hernia.? Left chest wall pulse (unknown) (no (unknown) (unknown) Mediastinum:? (units ( unknown) date) Mediastinal unknown) contours appear normal.? Heart size is normal.? (unknown) (no (unknown) (unknown) Medical decision (units (unknown) date) making narrative: unknown) (unknown) (no (unknown) (unknown) Medical records (units (unknown) date) reviewed: ER unknown) visits from a few days ago (unknown) (no (unknown) (unknown) Medication (units (unk nown) date) Instructions unknown) Recorded Confirmed (unknown) (no (unknown) (unknown) Ynxa-gw-txiqmaph, (units (unknown) date) unknown) (unknown) (no (unknown) (unknown) Mode of arrival: (units (unknown) date) Wheelchair unknown) (unknown) (no (unknown) (unknown) [place]io # (Auto) (units ( unknown) date) (0-900) /uL unknown) (unknown) (no (unknown) (unknown) [place] # (Auto) 900 (units (unknown) date) (0-900) /uL unknown) (unknown) (no (unknown) (unknown) [place]io % (Auto) (units ( unknown) date) (3-14) % unknown) (unknown) (no (unknown) (unknown) [place]io % (Auto) 9.4 (units (unknown) date) (3-14) % unknown) (unknown) (no (unknown) (unknown) NECK: Trachea (units ( unknown) date) midline. unknown) (unknown) (no (unknown) (unknown) NEURO: AOx4. (units (u nknown) date) Clear speech no unknown) facial droop light touch intact to bilateral face (unknown) (no (unknown) (unknown) NEUROLOGIC: (units (un known) date) negative weakness, unknown) numbness (unknown) (no (unknown) (unknown) NT-Pro-B (units (unkno wn) date) Natriuret Pep unknown) (<450) pg/mL (unknown) (no (unknown) (unknown) NT-Pro-B (units (unkno wn) date) Natriuret Pep 1430 unknown) H (<450) pg/mL (unknown) (no (unknown) (unknown) Narrative (units (unkn own) date) unknown) (unknown) (no (unknown) (unknown) Narrative: (units (unk nown) date) unknown) (unknown) (no (unknown) (unknown) Neut # (Auto) (units ( unknown) date) (7242-2998) /uL unknown) (unknown) (no (unknown) (unknown) Neut # (Auto) (units ( unknown) date) 8200 H (2195-2863) unknown) /uL (unknown) (no (unknown) (unknown) Neut % (Auto) (units ( unknown) date) (50-75) % unknown) (unknown) (no (unknown) (unknown) Neut % (Auto) (units ( unknown) date) 85.1 H (50-75) % unknown) (unknown) (no (unknown) (unknown) No Action (units (unkn own) date) unknown) (unknown) (no (unknown) (unknown) No Known Home (units ( unknown) date) Medications unknown) 12/20/20 12/20/20 (unknown) (no (unknown) (unknown) No Known Home (units ( unknown) date) Medications unknown) (unknown) (no (unknown) (unknown) Noncontrast 4.5 (units (unknown) date) mm thick angled unknown) axial sections acquired from the foramen magnum (unknown) (no (unknown) (unknown) Ondansetron HCl (units (unknown) date) (Ondansetron 4 unknown) Mg/2 Ml Inj) 4 mg IV NOW PRN (unknown) (no (unknown) (unknown) Ordered: (units (unkno wn) date) unknown) (unknown) (no (unknown) (unknown) Ordering (units (unkno wn) date) Provider: unknown) Matt Swartz MD (unknown) (no (unknown) (unknown) Orders (units (unkno wn) date) unknown) (unknown) (no (unknown) (unknown) Other findings as (units (unknown) date) above.? Of note, unknown) the liver and spleen are significantly (unknown) (no (unknown) (unknown) Oxygen Delivery (units (unknown) date) Method 06/16/22 unknown) 12:21 (unknown) (no (unknown) (unknown) Oxygen Delivery (units (unknown) date) Method Room Air unknown) (unknown) (no (unknown) (unknown) Oxygen Delivery (units (unknown) date) Method unknown) (unknown) (no (unknown) (unknown) PRN Reason: (units (un known) date) Nausea And unknown) Vomiting (unknown) (no (unknown) (unknown) PROCEDURE:? CT (units (unknown) date) CHEST W CON unknown) (unknown) (no (unknown) (unknown) PROCEDURE:? CT (units (unknown) date) HEAD/BRAIN WO CON unknown) (unknown) (no (unknown) (unknown) PROCEDURE:? XR (units (unknown) date) CHEST 1V unknown) (unknown) (no (unknown) (unknown) PSYCH: Not (units (unk nown) date) anxious, is unknown) cooperative (unknown) (no (unknown) (unknown) PT (10.1-12.7) (units (unknown) date) SECONDS unknown) (unknown) (no (unknown) (unknown) PT 17.6 H (units (unkn own) date) (10.1-12.7) unknown) SECONDS (unknown) (no (unknown) (unknown) Partial (units (unkno wn) date) Thromboplastin unknown) Time Stat (unknown) (no (unknown) (unknown) Patient History (units (unknown) date) unknown) (unknown) (no (unknown) (unknown) Patient brought (units (unknown) date) in by from unknown) Cardiology office for routine office visit. I (unknown) (no (unknown) (unknown) Patient: (units (unkno wn) date) Yoseph Cardoso unknown) MR#: [id number] (unknown) (no (unknown) (unknown) Patient: (units (unkno wn) date) Yoseph Cardoso unknown) (unknown) (no (unknown) (unknown) Plt Count (units (unkn own) date) (150-400) X103/uL unknown) (unknown) (no (unknown) (unknown) Plt Count 222 (units ( unknown) date) (150-400) X103/uL unknown) (unknown) (no (unknown) (unknown) Potassium (units (unkn own) date) (3.4-5.1) mmol/L unknown) (unknown) (no (unknown) (unknown) Potassium 4.8 (units ( unknown) date) (3.4-5.1) mmol/L unknown) (unknown) (no (unknown) (unknown) Prescriptions: (units (unknown) date) unknown) (unknown) (no (unknown) (unknown) Procalcitonin (units ( unknown) date) (<0.5) ng/mL unknown) (unknown) (no (unknown) (unknown) Procalcitonin (units ( unknown) date) 3.27 H (<0.5) unknown) ng/mL (unknown) (no (unknown) (unknown) Procalcitonin (units ( unknown) date) Stat unknown) (unknown) (no (unknown) (unknown) Procedure: CT (units ( unknown) date) chest w con unknown) (unknown) (no (unknown) (unknown) Procedure: CT (units ( unknown) date) head/brain wo con unknown) (unknown) (no (unknown) (unknown) Procedure: XR (units ( unknown) date) chest 1V unknown) (unknown) (no (unknown) (unknown) Prothrombin Time (units (unknown) date) INR Stat unknown) (unknown) (no (unknown) (unknown) Pulse Oximetry (units (unknown) date) 100 96 unknown) (unknown) (no (unknown) (unknown) Pulse Oximetry 91 (units (unknown) date) 93 unknown) (unknown) (no (unknown) (unknown) Pulse Oximetry 96 (units (unknown) date) 96 unknown) (unknown) (no (unknown) (unknown) Pulse Oximetry 98 (units (unknown) date) 06/16/22 12:21 unknown) (unknown) (no (unknown) (unknown) Pulse Oximetry 98 (units (unknown) date) 93 unknown) (unknown) (no (unknown) (unknown) Pulse Oximetry 98 (units (unknown) date) unknown) (unknown) (no (unknown) (unknown) Pulse Rate 70 72 (units (unknown) date) unknown) (unknown) (no (unknown) (unknown) Pulse Rate 71 73 (units (unknown) date) unknown) (unknown) (no (unknown) (unknown) Pulse Rate 73 75 (units (unknown) date) unknown) (unknown) (no (unknown) (unknown) Pulse Rate 76 (units ( unknown) date) unknown) (unknown) (no (unknown) (unknown) Pulse Rate 78 (units ( unknown) date) 06/16/22 12:21 unknown) (unknown) (no (unknown) (unknown) Pulse Rate 78 79 (units (unknown) date) unknown) (unknown) (no (unknown) (unknown) RBC (4.5-5.9) (units ( unknown) date) X106/uL unknown) (unknown) (no (unknown) (unknown) RBC 5.05 (units (unkno wn) date) (4.5-5.9) X106/uL unknown) (unknown) (no (unknown) (unknown) RDW (11.6-14.8) % (units (unknown) date) unknown) (unknown) (no (unknown) (unknown) RDW 14.4 (units (unkno wn) date) (11.6-14.8) % unknown) (unknown) (no (unknown) (unknown) RESPIRATORY: Clear (units (unknown) date) to auscultation. unknown) Breath sounds equal bilaterally. No wheezes, (unknown) (no (unknown) (unknown) RESPIRATORY: (units (u nknown) date) negative dyspnea, unknown) cough (unknown) (no (unknown) (unknown) ROS Unobtainable: (units (unknown) date) All systems unknown) reviewed + are unremarkable except as noted in HPI (unknown) (no (unknown) (unknown) RSV (PCR) (units (unkn own) date) (Negative) unknown) (unknown) (no (unknown) (unknown) RSV (PCR) (units (unkn own) date) Negative unknown) (Negative) (unknown) (no (unknown) (unknown) RT Consult Eval (units (unknown) date) and Treat NOW unknown) (unknown) (no (unknown) (unknown) Radiologist (units (un known) date) Impression: unknown) (unknown) (no (unknown) (unknown) Re-evaluations: (units (unknown) date) unknown) (unknown) (no (unknown) (unknown) Referrals: (units (unk nown) date) unknown) (unknown) (no (unknown) (unknown) Related Data (units (u nknown) date) unknown) (unknown) (no (unknown) (unknown) Respiratory Rate (units (unknown) date) 17 16 unknown) (unknown) (no (unknown) (unknown) Respiratory Rate (units (unknown) date) 20 13 unknown) (unknown) (no (unknown) (unknown) Respiratory Rate (units (unknown) date) 22 06/16/22 12:21 unknown) (unknown) (no (unknown) (unknown) Respiratory Rate (units (unknown) date) 22 14 unknown) (unknown) (no (unknown) (unknown) Respiratory Rate (units (unknown) date) 22 unknown) (unknown) (no (unknown) (unknown) Review of Systems (units (unknown) date) unknown) (unknown) (no (unknown) (unknown) SARS-CoV-2 (PCR) (units (unknown) date) (Negative) unknown) (unknown) (no (unknown) (unknown) SARS-CoV-2 (PCR) (units (unknown) date) Negative unknown) (Negative) (unknown) (no (unknown) (unknown) SKIN: Warm and (units (unknown) date) dry unknown) (unknown) (no (unknown) (unknown) SKIN: negative (units (unknown) date) rash, skin lesions unknown) (unknown) (no (unknown) (unknown) Signed By: (units (unk nown) date) unknown) (unknown) (no (unknown) (unknown) Signed (units (unkno wn) date) unknown) (unknown) (no (unknown) (unknown) Smoking Status: (units (unknown) date) Smoker, status unknown) unknown (unknown) (no (unknown) (unknown) Social History (units (unknown) date) (Reviewed 06/16/22 unknown) @ 14:04 by Matt Swartz MD) (unknown) (no (unknown) (unknown) Sodium (137-145) (units (unknown) date) mmol/L unknown) (unknown) (no (unknown) (unknown) Sodium 135 L (units (u nknown) date) (137-145) mmol/L unknown) (unknown) (no (unknown) (unknown) Sodium Chloride (units (unknown) date) (Normal Saline unknown) 0.9%) 1,000 mls @ 1,000 mls/hr IV BOLUS ONE (unknown) (no (unknown) (unknown) Source: patient (units (unknown) date) and family unknown) (unknown) (no (unknown) (unknown) Stated complaint: (units (unknown) date) Pain near unknown) pacemaker (unknown) (no (unknown) (unknown) Stop: 06/16/22 (units (unknown) date) 13:43 unknown) (unknown) (no (unknown) (unknown) Substance Use (units ( unknown) date) Type: does not use unknown) (unknown) (no (unknown) (unknown) Surgical changes (units (unknown) date) and devices:? Left unknown) chest wall pulse generator with dual-chamber (unknown) (no (unknown) (unknown) TECHNIQUE:? One (units (unknown) date) view of the chest unknown) was acquired.? (unknown) (no (unknown) (unknown) TECHNIQUE:? (units (un known) date) unknown) (unknown) (no (unknown) (unknown) There is also (units ( unknown) date) heterogeneous unknown) appearance of the spleen. (unknown) (no (unknown) (unknown) Time Seen by (units (u nknown) date) Provider: 06/16/22 unknown) 12:46 (unknown) (no (unknown) (unknown) Total Bilirubin (units (unknown) date) (0.2-1.3) mg/dL unknown) (unknown) (no (unknown) (unknown) Total Bilirubin (units (unknown) date) 2.1 H (0.2-1.3) unknown) mg/dL (unknown) (no (unknown) (unknown) Total Creatine (units (unknown) date) Kinase (55-170) unknown) U/L (unknown) (no (unknown) (unknown) Total Creatine (units (unknown) date) Kinase 53 L unknown) (55-170) U/L (unknown) (no (unknown) (unknown) Total Protein (units ( unknown) date) (6.3-8.2) g/dL unknown) (unknown) (no (unknown) (unknown) Total Protein 5.8 (units (unknown) date) L (6.3-8.2) g/dL unknown) (unknown) (no (unknown) (unknown) Treatments: (units (un known) date) unknown) (unknown) (no (unknown) (unknown) Troponin + CK (units ( unknown) date) Cardiac Panel Stat unknown) (unknown) (no (unknown) (unknown) Troponin I < (units (u nknown) date) 0.012 (0.01-0.034) unknown) ng/mL (unknown) (no (unknown) (unknown) Troponin I (units (unk nown) date) (0.01-0.034) ng/mL unknown) (unknown) (no (unknown) (unknown) Upper abdomen:? (units (unknown) date) Heterogeneous unknown) appearance of the liver, not well evaluated on (unknown) (no (unknown) (unknown) Vital Signs - 8 (units (unknown) date) hr unknown) (unknown) (no (unknown) (unknown) Vital Signs (units (un known) date) unknown) (unknown) (no (unknown) (unknown) Vital signs: (units (u nknown) date) unknown) (unknown) (no (unknown) (unknown) Volume:? Vascular (units (unknown) date) calcifications. unknown) Periventricular white matter disease is (unknown) (no (unknown) (unknown) WBC (4.5-11.0) (units (unknown) date) X103/uL unknown) (unknown) (no (unknown) (unknown) WBC 9.6 (units (unkno wn) date) (4.5-11.0) X103/uL unknown) (unknown) (no (unknown) (unknown) [facility] (units (unknown) date) ER for evaluation unknown) of dark urine. CT abdomen pelvis were done, (unknown) (no (unknown) (unknown) XR chest 1V Stat (units (unknown) date) unknown) (unknown) (no (unknown) (unknown) XRay Report (units (un known) date) unknown) (unknown) (no (unknown) (unknown) [Embedded Image (units (unknown) date) Not Available] unknown) (unknown) (no (unknown) (unknown) [From Prevnar] (units (unknown) date) and feet x unknown) (unknown) (no (unknown) (unknown) after. (units (unkno wn) date) unknown) (unknown) (no (unknown) (unknown) alcohol intake (units (unknown) date) frequency: a few unknown) times a month (unknown) (no (unknown) (unknown) and below (units (unkn own) date) unknown) (unknown) (no (unknown) (unknown) and/or (units (unkno wn) date) unknown) (unknown) (no (unknown) (unknown) appear (units (unkno wn) date) unknown) (unknown) (no (unknown) (unknown) appearing (units (unkn own) date) unknown) (unknown) (no (unknown) (unknown) assess for (units (unk nown) date) resolution. unknown) (unknown) (no (unknown) (unknown) atelectasis (units (un known) date) unknown) (unknown) (no (unknown) (unknown) commonly seen (units ( unknown) date) unknown) (unknown) (no (unknown) (unknown) conjugate to of (units (unknown) date) hands unknown) (unknown) (no (unknown) (unknown) consider (units (unkno wn) date) nonemergent MRI if unknown) necessary.? (unknown) (no (unknown) (unknown) coronal and (units (un known) date) sagittal reformats unknown) and 7 mm axial MIP were acquired.? For radiation (unknown) (no (unknown) (unknown) criteria. (units (unkn own) date) unknown) (unknown) (no (unknown) (unknown) denies any chest (units (unknown) date) pain back pain unknown) abdominal pain or headache. (unknown) (no (unknown) (unknown) dose (units (unkno wn) date) unknown) (unknown) (no (unknown) (unknown) electrode leads (units (unknown) date) in place. unknown) (unknown) (no (unknown) (unknown) facial droop. (units ( unknown) date) Fast exam is unknown) negative. Cardiology does not feel this is cardiac (unknown) (no (unknown) (unknown) facial droop. (units ( unknown) date) Fast exam is unknown) negative. Patient denies any chest pain abdominal (unknown) (no (unknown) (unknown) failure (units (unkno wn) date) thrive/dementia/Pa unknown) rkinson's (unknown) (no (unknown) (unknown) following (units (unkn own) date) unknown) (unknown) (no (unknown) (unknown) from the (units (unkno wn) date) unknown) (unknown) (no (unknown) (unknown) generator (units (unkn own) date) unknown) (unknown) (no (unknown) (unknown) greater on the (units (unknown) date) unknown) (unknown) (no (unknown) (unknown) hands with strong (units (unknown) date) equal warehouse helper unknown) 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 (unknown) (no (unknown) (unknown) health/weight (units ( unknown) date) loss cachexia and unknown) balance issues. He had concern for neoplastic (unknown) (no (unknown) (unknown) hemoglobin 15.4 (units (unknown) date) hematocrit 46.6 unknown) platelets 222 PT 17.6 INR 1.5 PTT 38 sodium 135 (unknown) (no (unknown) (unknown) heterogeneous (units ( unknown) date) unknown) (unknown) (no (unknown) (unknown) history, and (units (u nknown) date) unknown) (unknown) (no (unknown) (unknown) intact. (units (unkno wn) date) unknown) (unknown) (no (unknown) (unknown) kV according to (units (unknown) date) patient size.? unknown) (unknown) (no (unknown) (unknown) lactic acid have (units (unknown) date) been ordered unknown) (unknown) (no (unknown) (unknown) maintained. (units (un known) date) unknown) (unknown) (no (unknown) (unknown) moderate (units (unkno wn) date) unknown) (unknown) (no (unknown) (unknown) no acute process (units (unknown) date) other than unknown) diverticulosis without diverticulitis. states (unknown) (no (unknown) (unknown) opacities.? No (units (unknown) date) pleural unknown) effusions.? (unknown) (no (unknown) (unknown) or early airspace (units (unknown) date) disease.? Consider unknown) future imaging surveillance to assess for (unknown) (no (unknown) (unknown) pain back pain (units (unknown) date) headache unknown) (unknown) (no (unknown) (unknown) parenchymal (units (un known) date) unknown) (unknown) (no (unknown) (unknown) pathology, (units (unk nown) date) consider MRI. unknown) (unknown) (no (unknown) (unknown) patient has had 30 (units (unknown) date) lb weight loss in unknown) the past few months with night sweats it in (unknown) (no (unknown) (unknown) patient (units (unkno wn) date) unknown) (unknown) (no (unknown) (unknown) pneumococcal (units (u nknown) date) 7-valent AdvReac unknown) Intermediate swelling Verified 06/16/22 12:46 (unknown) (no (unknown) (unknown) positive night (units (unknown) date) sweats. Positive unknown) weight loss (unknown) (no (unknown) (unknown) potassium 4.8 BUN (units (unknown) date) 34 creatinine 0.99 unknown) glucose 146 lactic acid 4.3. BNP 1430 (unknown) (no (unknown) (unknown) process. I spoke (units (unknown) date) with dr gillette. unknown) However, patient was recently seen at (unknown) (no (unknown) (unknown) pulmonary apices (units (unknown) date) to the posterior unknown) costophrenic angles.? 1 mm axial lung, 5 mm (unknown) (no (unknown) (unknown) rales, or (units (unkn own) date) rhonchi. unknown) (unknown) (no (unknown) (unknown) reduction, the (units ( unknown) date) following was unknown) used:? automated exposure control, adjustment of mA (unknown) (no (unknown) (unknown) related. Patient (units (unknown) date) here for routine unknown) annual cardiac workup/checkup. Patient (unknown) (no (unknown) (unknown) resolution. (units (un known) date) unknown) (unknown) (no (unknown) (unknown) right greater than (units (unknown) date) left pleural unknown) effusions.? Consider future imaging surveillance (unknown) (no (unknown) (unknown) right.? Bibasilar (units (unknown) date) opacities and unknown) nodularity also present. (unknown) (no (unknown) (unknown) shuffled gait. (units (unknown) date) Generalized unknown) weakness and malaise. However no slurred speech or (unknown) (no (unknown) (unknown) size (units (unkno wn) date) unknown) (unknown) (no (unknown) (unknown) size.? 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 (units (unknown) date) Patient has unknown) history of melanoma. Patient has had recently (unknown) (no (unknown) (unknown) thick (units (unkno wn) date) unknown) (unknown) (no (unknown) (unknown) this study.? (units (u nknown) date) unknown) (unknown) (no (unknown) (unknown) to the (units (unkno wn) date) unknown) (unknown) (no (unknown) (unknown) to (units (unkno wn) date) unknown) (unknown) (no (unknown) (unknown) troponin less (units ( unknown) date) than 0.012, unknown) procalcitonin 3.27 (unknown) (no (unknown) (unknown) unremarkable.? (units (unknown) date) unknown) (unknown) (no (unknown) (unknown) vertex, with (units (u nknown) date) coronal and unknown) sagittal reformats.? For radiation dose reduction, the (unknown) (no (unknown) (unknown) visit from a few (units (unknown) date) days ago unknown) (unknown) (no (unknown) (unknown) was used:? (units (unk nown) date) automated exposure unknown) control, adjustment of mA and/or kV according to (unknown) (no (unknown) (unknown) which may be (units (u nknown) date) related to liver unknown) disease.? Please correlate with LFTs, clinical (unknown) (no (unknown) (unknown) with chronic (units (u nknown) date) microangiopathy. unknown) Volume loss is present. These findings are (unknown) (no (unknown) (unknown) with electrode (units (unknown) date) leads.? Coronary unknown) calcifications.? No pathologic adenopathy by Result panel 201 (unknown) (no (unknown) (unknown) (no value) (units (unk nown) date) unknown) (unknown) (no (unknown) (unknown) [id number] (units (unkno wn) date) unknown) (unknown) (no (unknown) (unknown) 06/16/22 06/16/22 (units (unknown) date) 06/16/22 unknown) Range/Units (unknown) (no (unknown) (unknown) 06/16/22 06/16/22 (units (unknown) date) Range/Units unknown) (unknown) (no (unknown) (unknown) 06/16/22 12:35 (units (unknown) date) unknown) (unknown) (no (unknown) (unknown) 06/16/22 12:45 (units (unknown) date) unknown) (unknown) (no (unknown) (unknown) 06/16/22 13:01 (units (unknown) date) unknown) (unknown) (no (unknown) (unknown) 06/16/22 13:13 (units (unknown) date) unknown) (unknown) (no (unknown) (unknown) 06/16/22 13:24 (units (unknown) date) unknown) (unknown) (no (unknown) (unknown) 06/16/22 13:32 (units (unknown) date) unknown) (unknown) (no (unknown) (unknown) 06/16/22 (units (unkno wn) date) unknown) (unknown) (no (unknown) (unknown) [address] [place] [address] (units (unknown) date) unknown) (unknown) (no (unknown) (unknown) 12:21 06/16/22 (units (unknown) date) unknown) (unknown) (no (unknown) (unknown) 12:30 06/16/22 (units (unknown) date) unknown) (unknown) (no (unknown) (unknown) 12:30 (units (unkno wn) date) unknown) (unknown) (no (unknown) (unknown) 12:35 12:35 12:35 (units (unknown) date) unknown) (unknown) (no (unknown) (unknown) 12:35 12:35 (units (un known) date) unknown) (unknown) (no (unknown) (unknown) 12:45 06/16/22 (units (unknown) date) unknown) (unknown) (no (unknown) (unknown) 13:00 06/16/22 (units (unknown) date) unknown) (unknown) (no (unknown) (unknown) 13:00 (units (unkno wn) date) unknown) (unknown) (no (unknown) (unknown) 13:15 06/16/22 (units (unknown) date) unknown) (unknown) (no (unknown) (unknown) 13:15 (units (unkno wn) date) unknown) (unknown) (no (unknown) (unknown) 13:30 06/16/22 (units (unknown) date) unknown) (unknown) (no (unknown) (unknown) 13:45 06/16/22 (units (unknown) date) unknown) (unknown) (no (unknown) (unknown) 13:46 06/16/22 (units (unknown) date) unknown) (unknown) (no (unknown) (unknown) 13:46 (units (unkno wn) date) unknown) (unknown) (no (unknown) (unknown) 14:00 06/16/22 (units (unknown) date) unknown) (unknown) (no (unknown) (unknown) 14:00 (units (unkno wn) date) unknown) (unknown) (no (unknown) (unknown) 4 mos (units (unkno wn) date) unknown) (unknown) (no (unknown) (unknown) 72 (units (unkno wn) date) unknown) (unknown) (no (unknown) (unknown) ? (units (unkno wn) date) unknown) (unknown) (no (unknown) (unknown) ALT (<50) IU/L (units (unknown) date) unknown) (unknown) (no (unknown) (unknown) ALT 63 H (<50) (units (unknown) date) IU/L unknown) (unknown) (no (unknown) (unknown) APTT (26-36) (units (u nknown) date) SECONDS unknown) (unknown) (no (unknown) (unknown) APTT 38 H (26-36) (units (unknown) date) SECONDS unknown) (unknown) (no (unknown) (unknown) AST (17-59) IU/L (units (unknown) date) unknown) (unknown) (no (unknown) (unknown) AST 61 H (17-59) (units (unknown) date) IU/L unknown) (unknown) (no (unknown) (unknown) Accession Number: (units (unknown) date) [id number] ?? unknown) (unknown) (no (unknown) (unknown) Accession Number: (units (unknown) date) [id number] ?? unknown) (unknown) (no (unknown) (unknown) Accession Number: (units (unknown) date) [id number] ?? unknown) (unknown) (no (unknown) (unknown) Acct:[id number] (units (unknown) date) unknown) (unknown) (no (unknown) (unknown) Admin: 06/16/22 (units (unknown) date) 13:02 Dose: 1,000 unknown) mls/hr (unknown) (no (unknown) (unknown) Admit Date/Time: (units (unknown) date) 06/16/22 15:35 unknown) (unknown) (no (unknown) (unknown) After history and (units (unknown) date) exam CT head CT unknown) chest CBC CMP BNP troponin procalcitonin (unknown) (no (unknown) (unknown) After the (units (unkn own) date) administration of unknown) intravenous contrast, 5 mm thick sections acquired (unknown) (no (unknown) (unknown) Age/Sex: 86 / M (units (unknown) date) unknown) (unknown) (no (unknown) (unknown) Agrees with IV (units (unknown) date) hydration and unknown) repeat lactic acid. Blood cultures to be done. (unknown) (no (unknown) (unknown) Albumin (3.5-5.0) (units (unknown) date) g/dL unknown) (unknown) (no (unknown) (unknown) Albumin 3.1 L (units ( unknown) date) (3.5-5.0) g/dL unknown) (unknown) (no (unknown) (unknown) Albumin/Globulin (units (unknown) date) Ratio (1.0-2.8) unknown) (unknown) (no (unknown) (unknown) Albumin/Globulin (units (unknown) date) Ratio 1.1 unknown) (1.0-2.8) (unknown) (no (unknown) (unknown) Alkaline (units (unkno wn) date) Phosphatase unknown) (38-126) U/L (unknown) (no (unknown) (unknown) Alkaline (units (unkno wn) date) Phosphatase 428 H unknown) (38-126) U/L (unknown) (no (unknown) (unknown) Allergies (units (unkn own) date) unknown) (unknown) (no (unknown) (unknown) Allergy/AdvReac (units (unknown) date) Type Severity unknown) Reaction Status Date / Time (unknown) (no (unknown) (unknown) [place], [place] (units ( unknown) date) [address] unknown) (unknown) (no (unknown) (unknown) Approved by: (units (u nknown) date) Brandyn Davis M.D. on unknown) 06/16/2022 at 13:03 ? (unknown) (no (unknown) (unknown) Approved by: (units (u nknown) date) Brandyn Davis M.D. on unknown) 06/16/2022 at 14:52 ? (unknown) (no (unknown) (unknown) Approved by: (units (u nknown) date) Brandyn Davis M.D. on unknown) 06/16/2022 at 14:54 ? (unknown) (no (unknown) (unknown) At this time (units (u nknown) date) uncertain source unknown) of patient's liver enzymes and acidosis. Not (unknown) (no (unknown) (unknown) BACK: No flank (units (unknown) date) tenderness. unknown) (unknown) (no (unknown) (unknown) BNP [NT-proBNP (units (unknown) date) (BNP-Adult 18+)] unknown) Stat (unknown) (no (unknown) (unknown) BUN (9-20) mg/dL (units (unknown) date) unknown) (unknown) (no (unknown) (unknown) BUN 34 H (9-20) (units (unknown) date) mg/dL unknown) (unknown) (no (unknown) (unknown) BUN/Creatinine (units (unknown) date) Ratio (6-22) unknown) (unknown) (no (unknown) (unknown) BUN/Creatinine (units (unknown) date) Ratio 34.3 H unknown) (6-22) (unknown) (no (unknown) (unknown) Baso # (Auto) (units ( unknown) date) (0-100) /uL unknown) (unknown) (no (unknown) (unknown) Baso # (Auto) 100 (units (unknown) date) (0-100) /uL unknown) (unknown) (no (unknown) (unknown) Baso % (Auto) (units ( unknown) date) (0-2) % unknown) (unknown) (no (unknown) (unknown) Baso % (Auto) 0.8 (units (unknown) date) (0-2) % unknown) (unknown) (no (unknown) (unknown) Blood Culture (units ( unknown) date) Stat unknown) (unknown) (no (unknown) (unknown) Blood Pressure (units (unknown) date) 134/61 141/67 H unknown) (unknown) (no (unknown) (unknown) Blood Pressure (units (unknown) date) 141/57 H unknown) (unknown) (no (unknown) (unknown) Blood Pressure (units (unknown) date) 142/67 H unknown) (unknown) (no (unknown) (unknown) Blood Pressure (units (unknown) date) 144/68 H 06/16/22 unknown) 12:21 (unknown) (no (unknown) (unknown) Blood Pressure (units (unknown) date) 144/68 H 144/68 H unknown) (unknown) (no (unknown) (unknown) Blood Pressure (units (unknown) date) 145/69 H unknown) (unknown) (no (unknown) (unknown) Bones and chest (units (unknown) date) wall:? No unknown) suspicious bony lesions.? Overlying soft tissues (unknown) (no (unknown) (unknown) Bones:? No acute (units (unknown) date) or suspicious unknown) osseous abnormality. (unknown) (no (unknown) (unknown) Brain: No (units (unkn own) date) intracranial unknown) hemorrhage. Amaro-white differentiation is grossly (unknown) (no (unknown) (unknown) CARDIOVASCULAR: (units (unknown) date) Regular rate and unknown) rhythm without murmurs (unknown) (no (unknown) (unknown) CARDIOVASCULAR: (units (unknown) date) negative chest unknown) pain, palpitations (unknown) (no (unknown) (unknown) CC: Weakness (units (u nknown) date) weight loss night unknown) sweats (unknown) (no (unknown) (unknown) CK-MB (CK-2) Rel (units (unknown) date) Index TNP unknown) (unknown) (no (unknown) (unknown) CK-MB (CK-2) Rel (units (unknown) date) Index unknown) (unknown) (no (unknown) (unknown) CK-MB (CK-2) TNP (units (unknown) date) unknown) (unknown) (no (unknown) (unknown) CK-MB (CK-2) (units (u nknown) date) unknown) (unknown) (no (unknown) (unknown) COMPARISON:? (units (u nknown) date) [facility], unknown) CR, XR CHEST 1V, 06/16/2022, 12:43. (unknown) (no (unknown) (unknown) COMPARISON:? (units (u nknown) date) None. unknown) (unknown) (no (unknown) (unknown) CSF spaces: Basal (units (unknown) date) cisterns are unknown) patent. Lateral ventricles are symmetric. (unknown) (no (unknown) (unknown) CT Scan Report (units (unknown) date) unknown) (unknown) (no (unknown) (unknown) CT chest w con (units (unknown) date) Stat unknown) (unknown) (no (unknown) (unknown) CT head/brain wo (units (unknown) date) con Stat unknown) (unknown) (no (unknown) (unknown) CT scan - chest: (units (unknown) date) unknown) (unknown) (no (unknown) (unknown) CT scan - head: (units (unknown) date) unknown) (unknown) (no (unknown) (unknown) Calcium (units (unkno wn) date) (8.4-10.2) mg/dL unknown) (unknown) (no (unknown) (unknown) Calcium 8.1 L (units ( unknown) date) (8.4-10.2) mg/dL unknown) (unknown) (no (unknown) (unknown) Carbon Dioxide (units (unknown) date) (22-32) mmol/L unknown) (unknown) (no (unknown) (unknown) Carbon Dioxide 28 (units (unknown) date) (22-32) mmol/L unknown) (unknown) (no (unknown) (unknown) Chest wall and (units (unknown) date) thyroid:? unknown) Unremarkable (unknown) (no (unknown) (unknown) Chest x-ray: (units (u nknown) date) unknown) (unknown) (no (unknown) (unknown) Chief complaint: (units (unknown) date) Weakness unknown) (unknown) (no (unknown) (unknown) Chloride (98-107) (units (unknown) date) mmol/L unknown) (unknown) (no (unknown) (unknown) Chloride 99 (units (un known) date) (98-107) mmol/L unknown) (unknown) (no (unknown) (unknown) Complete Blood (units (unknown) date) Count AUTO DIFF unknown) Stat (unknown) (no (unknown) (unknown) Complicating (units (u nknown) date) co-morbidities: unknown) History of melanoma (unknown) (no (unknown) (unknown) Comprehensive (units ( unknown) date) Metabolic Panel unknown) Stat (unknown) (no (unknown) (unknown) Consultations: (units (unknown) date) 3:36 p.m.. Spoke unknown) with hospitalist, Dr. Parker, agrees patient (unknown) (no (unknown) (unknown) Course (units (unkno wn) date) unknown) (unknown) (no (unknown) (unknown) Covid-19 + FLU (units (unknown) date) A/B + RSV - PCR unknown) Stat (unknown) (no (unknown) (unknown) Craniofacial (units (u nknown) date) structures: No unknown) displaced fracture. Sinuses are clear. 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 on unknown) 06/16/2022 at 13:02 ? ? (unknown) (no (unknown) (unknown) Dictated by: (units (u nknown) date) Brandyn Davis M.D. on unknown) 06/16/2022 at 14:48 ? ? (unknown) (no (unknown) (unknown) Dictated by: (units (u nknown) date) Brandyn Davis M.D. on unknown) 06/16/2022 at 14:52 ? ? (unknown) (no (unknown) (unknown) Differential (units (u nknown) date) considered: unknown) Includes but not limited to neoplastic process, (unknown) (no (unknown) (unknown) Discharge Plan (units (unknown) date) unknown) (unknown) (no (unknown) (unknown) Discontinued (units (u nknown) date) Medications unknown) (unknown) (no (unknown) (unknown) Discussion: (units (un known) date) Appropriate for unknown) admission. Patient would benefit observation for (unknown) (no (unknown) (unknown) Documented By: JYudi (units (unknown) date) unknown) (unknown) (no (unknown) (unknown) Documented By: (units (unknown) date) RLS unknown) (unknown) (no (unknown) (unknown) ED Orders (units (unkn own) date) unknown) (unknown) (no (unknown) (unknown) EKG-12 Lead Stat (units (unknown) date) unknown) (unknown) (no (unknown) (unknown) ENT: Slightly dry (units (unknown) date) lips and mucous unknown) membranes (unknown) (no (unknown) (unknown) ER Physician: (units ( unknown) date) Matt Swartz MD unknown) (unknown) (no (unknown) (unknown) EXTREMITIES: No (units (unknown) date) gross deformities. unknown) (unknown) (no (unknown) (unknown) EYES: Pupils (units (u nknown) date) equal round unknown) (unknown) (no (unknown) (unknown) Emergency Report (units (unknown) date) unknown) (unknown) (no (unknown) (unknown) Eos # (Auto) (units (u nknown) date) (0-450) /uL unknown) (unknown) (no (unknown) (unknown) Eos # (Auto) 0 (units (unknown) date) (0-450) /uL unknown) (unknown) (no (unknown) (unknown) Eos % (Auto) (units (u nknown) date) (2-4) % unknown) (unknown) (no (unknown) (unknown) Eos % (Auto) 0.1 (units (unknown) date) L (2-4) % unknown) (unknown) (no (unknown) (unknown) Estimated GFR > (units (unknown) date) 60 (>60) mL/min unknown) (unknown) (no (unknown) (unknown) Estimated GFR (units ( unknown) date) (>60) mL/min unknown) (unknown) (no (unknown) (unknown) Exam Narrative: (units (unknown) date) unknown) (unknown) (no (unknown) (unknown) Exam documented (units (unknown) date) above, pertinent unknown) findings include: Cachectic-appearin g dry (unknown) (no (unknown) (unknown) Exam (units (unkno wn) date) unknown) (unknown) (no (unknown) (unknown) FINDINGS:? (units (unk nown) date) unknown) (unknown) (no (unknown) (unknown) GASTROINTESTINAL: (units (unknown) date) Abdomen soft, unknown) non-tender (unknown) (no (unknown) (unknown) GASTROINTESTINAL: (units (unknown) date) negative nausea, unknown) vomiting, abdominal pain (unknown) (no (unknown) (unknown) GENERAL: in no (units (unknown) date) distress, not unknown) toxic not dyspneic, is cachectic appearing (unknown) (no (unknown) (unknown) GENERAL: negative (units (unknown) date) chills, positive unknown) fatigue, malaise, dizzy negative fever, (unknown) (no (unknown) (unknown) : negative (units (u nknown) date) dysuria, unknown) frequency, hematuria (unknown) (no (unknown) (unknown) General (units (unkno wn) date) unknown) (unknown) (no (unknown) (unknown) Globulin (units (unkno wn) date) (1.7-4.1) g/dL unknown) (unknown) (no (unknown) (unknown) Globulin 2.7 (units (u nknown) date) (1.7-4.1) g/dL unknown) (unknown) (no (unknown) (unknown) Glucose (80-110) (units (unknown) date) mg/dL unknown) (unknown) (no (unknown) (unknown) Glucose 146 H (units ( unknown) date) (80-110) mg/dL unknown) (unknown) (no (unknown) (unknown) HEAD: (units (unkno wn) date) Normocephalic. unknown) (unknown) (no (unknown) (unknown) HEENT: negative (units (unknown) date) sinus pain, ear unknown) pain, sore throat (unknown) (no (unknown) (unknown) HPI - Weakness (units (unknown) date) unknown) (unknown) (no (unknown) (unknown) HPI Narrative: (units (unknown) date) unknown) (unknown) (no (unknown) (unknown) Hct (41-53) % (units ( unknown) date) unknown) (unknown) (no (unknown) (unknown) Hct 46.6 (41-53) (units (unknown) date) % unknown) (unknown) (no (unknown) (unknown) Hgb (13.5-17.5) (units (unknown) date) g/dL unknown) (unknown) (no (unknown) (unknown) Hgb 15.4 (units (unkno wn) date) (13.5-17.5) g/dL unknown) (unknown) (no (unknown) (unknown) History of (units (unk nown) date) Present Illness unknown) (unknown) (no (unknown) (unknown) Home Medications (units (unknown) date) unknown) (unknown) (no (unknown) (unknown) IMPRESSION:? (units (u nknown) date) Bibasilar unknown) infectious or inflammatory pulmonary opacities.? (unknown) (no (unknown) (unknown) IMPRESSION:? No (units (unknown) date) acute intracranial unknown) abnormality.? If there is concern for (unknown) (no (unknown) (unknown) IMPRESSION:? (units (u nknown) date) Possible mild unknown) right and retrocardiac opacities could represent (unknown) (no (unknown) (unknown) INDICATIONS:? (units ( unknown) date) altered mental unknown) status (unknown) (no (unknown) (unknown) INDICATIONS:? (units ( unknown) date) chest pain unknown) (unknown) (no (unknown) (unknown) INDICATIONS:? (units ( unknown) date) suspected sepsis unknown) (unknown) (no (unknown) (unknown) INR (0.9-1.3) (units ( unknown) date) unknown) (unknown) (no (unknown) (unknown) INR 1.5 H (units (unkn own) date) (0.9-1.3) unknown) (unknown) (no (unknown) (unknown) Image quality:? (units (unknown) date) Good unknown) (unknown) (no (unknown) (unknown) Imaging Data (units (u nknown) date) unknown) (unknown) (no (unknown) (unknown) Imaging studies (units (unknown) date) independently unknown) reviewed: Chest x-ray no acute process, CT head (unknown) (no (unknown) (unknown) Independently (units ( unknown) date) reviewed EKG as unknown) above atrial sensed ventricular paced rhythm rate (unknown) (no (unknown) (unknown) Influenza A (units (un known) date) (RT-PCR) unknown) (NEGATIVE) (unknown) (no (unknown) (unknown) Influenza A (units (un known) date) (RT-PCR) Flu a unknown) negative (NEGATIVE) (unknown) (no (unknown) (unknown) Influenza B (units (un known) date) (RT-PCR) unknown) (NEGATIVE) (unknown) (no (unknown) (unknown) Influenza B (units (un known) date) (RT-PCR) Flu b unknown) negative (NEGATIVE) (unknown) (no (unknown) (unknown) Initial Vital (units ( unknown) date) Signs unknown) (unknown) (no (unknown) (unknown) Initial Vital (units ( unknown) date) Signs: unknown) (unknown) (no (unknown) (unknown) [facility] (units (unknown) date) [address] unknown) [place] [address] (unknown) (no (unknown) (unknown) [facility] (units (unknown) date) unknown) (unknown) (no (unknown) (unknown) Lab Data (units (unkno wn) date) unknown) (unknown) (no (unknown) (unknown) Lab Results (units (un known) date) unknown) (unknown) (no (unknown) (unknown) Lab Test results (units (unknown) date) independently unknown) reviewed as above. Pertinent findings: WBC 9.6 (unknown) (no (unknown) (unknown) Labs: (units (unkno wn) date) unknown) (unknown) (no (unknown) (unknown) Lactate (0.7-2.1) (units (unknown) date) mmol/L unknown) (unknown) (no (unknown) (unknown) Lactate (Lactic (units (unknown) date) Acid) Stat unknown) (unknown) (no (unknown) (unknown) Lactate 4.3 H* (units (unknown) date) (0.7-2.1) mmol/L unknown) (unknown) (no (unknown) (unknown) Lucien Lan (units (unknown) date) MD Yudi [Primary unknown) Care Provider] (unknown) (no (unknown) (unknown) Last Infusion: (units (unknown) date) 06/16/22 14:09 unknown) Dose: 0 mls/hr (unknown) (no (unknown) (unknown) Lipase (23-300) (units (unknown) date) U/L unknown) (unknown) (no (unknown) (unknown) Lipase 45 (units (unkn own) date) (23-300) U/L unknown) (unknown) (no (unknown) (unknown) Lipase Stat (units (un known) date) unknown) (unknown) (no (unknown) (unknown) Loc: ED (units (unkno wn) date) unknown) (unknown) (no (unknown) (unknown) Lungs and (units (unkn own) date) pleura:? Bilateral unknown) [id number] pleural effusions, slightly (unknown) (no (unknown) (unknown) Lungs and pleura:? (units (unknown) date) Low lung volumes.? unknown) Possible mild right and retrocardiac basal (unknown) (no (unknown) (unknown) Lymph # (Auto) (units (unknown) date) (9668-9823) /uL unknown) (unknown) (no (unknown) (unknown) Lymph # (Auto) (units (unknown) date) 400 L (4689-5554) unknown) /uL (unknown) (no (unknown) (unknown) Lymph % (Auto) (units (unknown) date) (25-40) % unknown) (unknown) (no (unknown) (unknown) Lymph % (Auto) (units (unknown) date) 4.6 L (25-40) % unknown) (unknown) (no (unknown) (unknown) MCH (26-34) PG (units (unknown) date) unknown) (unknown) (no (unknown) (unknown) MCH 30.4 (26-34) (units (unknown) date) PG unknown) (unknown) (no (unknown) (unknown) MCHC (30-36) % (units (unknown) date) unknown) (unknown) (no (unknown) (unknown) MCHC 33.0 (30-36) (units (unknown) date) % unknown) (unknown) (no (unknown) (unknown) MCV (80-100) fL (units (unknown) date) unknown) (unknown) (no (unknown) (unknown) MCV 92.4 (80-100) (units (unknown) date) fL unknown) (unknown) (no (unknown) (unknown) MDM - Weakness (units (unknown) date) unknown) (unknown) (no (unknown) (unknown) MDM Narrative (units ( unknown) date) unknown) (unknown) (no (unknown) (unknown) MDM (units (unkno wn) date) unknown) (unknown) (no (unknown) (unknown) MR#: [id number] (units (unknown) date) unknown) (unknown) (no (unknown) (unknown) MUSCULOSKELETAL: (units (unknown) date) negative muscle or unknown) bony pain (unknown) (no (unknown) (unknown) Mediastinum, (units (u nknown) date) heart, and unknown) esophagus:? No hiatal hernia.? Left chest wall pulse (unknown) (no (unknown) (unknown) Mediastinum:? (units ( unknown) date) Mediastinal unknown) contours appear normal.? Heart size is normal.? (unknown) (no (unknown) (unknown) Medical decision (units (unknown) date) making narrative: unknown) (unknown) (no (unknown) (unknown) Medical records (units (unknown) date) reviewed: ER unknown) visits from a few days ago (unknown) (no (unknown) (unknown) Medication (units (unk nown) date) Instructions unknown) Recorded Confirmed (unknown) (no (unknown) (unknown) [id number], (units (unknown) date) unknown) (unknown) (no (unknown) (unknown) Mode of arrival: (units (unknown) date) Wheelchair unknown) (unknown) (no (unknown) (unknown) [place] # (Auto) (units ( unknown) date) (0-900) /uL unknown) (unknown) (no (unknown) (unknown) [place] # (Auto) 900 (units (unknown) date) (0-900) /uL unknown) (unknown) (no (unknown) (unknown) [place] % (Auto) (units ( unknown) date) (3-14) % unknown) (unknown) (no (unknown) (unknown) [place] % (Auto) 9.4 (units (unknown) date) (3-14) % unknown) (unknown) (no (unknown) (unknown) NECK: Trachea (units ( unknown) date) midline. unknown) (unknown) (no (unknown) (unknown) NEURO: AOx4. (units (u nknown) date) Clear speech no unknown) facial droop light touch intact to bilateral face (unknown) (no (unknown) (unknown) NEUROLOGIC: (units (un known) date) negative weakness, unknown) numbness (unknown) (no (unknown) (unknown) NT-Pro-B (units (unkno wn) date) Natriuret Pep unknown) (<450) pg/mL (unknown) (no (unknown) (unknown) NT-Pro-B (units (unkno wn) date) Natriuret Pep 1430 unknown) H (<450) pg/mL (unknown) (no (unknown) (unknown) Narrative (units (unkn own) date) unknown) (unknown) (no (unknown) (unknown) Narrative: (units (unk nown) date) unknown) (unknown) (no (unknown) (unknown) Neut # (Auto) (units ( unknown) date) (4450-1371) /uL unknown) (unknown) (no (unknown) (unknown) Neut # (Auto) (units ( unknown) date) 8200 H (7738-4976) unknown) /uL (unknown) (no (unknown) (unknown) Neut % (Auto) (units ( unknown) date) (50-75) % unknown) (unknown) (no (unknown) (unknown) Neut % (Auto) (units ( unknown) date) 85.1 H (50-75) % unknown) (unknown) (no (unknown) (unknown) No Action (units (unkn own) date) unknown) (unknown) (no (unknown) (unknown) No Known Home (units ( unknown) date) Medications unknown) 12/20/20 12/20/20 (unknown) (no (unknown) (unknown) No Known Home (units ( unknown) date) Medications unknown) (unknown) (no (unknown) (unknown) Noncontrast 4.5 (units (unknown) date) mm thick angled unknown) axial sections acquired from the foramen magnum (unknown) (no (unknown) (unknown) Ondansetron HCl (units (unknown) date) (Ondansetron 4 unknown) Mg/2 Ml Inj) 4 mg IV NOW PRN (unknown) (no (unknown) (unknown) Ordered: (units (unkno wn) date) unknown) (unknown) (no (unknown) (unknown) Ordering (units (unkno wn) date) Provider: unknown) Matt Swartz MD (unknown) (no (unknown) (unknown) Orders (units (unkno wn) date) unknown) (unknown) (no (unknown) (unknown) Other findings as (units (unknown) date) above.? Of note, unknown) the liver and spleen are significantly (unknown) (no (unknown) (unknown) Oxygen Delivery (units (unknown) date) Method 06/16/22 unknown) 12:21 (unknown) (no (unknown) (unknown) Oxygen Delivery (units (unknown) date) Method Room Air unknown) (unknown) (no (unknown) (unknown) Oxygen Delivery (units (unknown) date) Method unknown) (unknown) (no (unknown) (unknown) PRN Reason: (units (un known) date) Nausea And unknown) Vomiting (unknown) (no (unknown) (unknown) PROCEDURE:? CT (units (unknown) date) CHEST W CON unknown) (unknown) (no (unknown) (unknown) PROCEDURE:? CT (units (unknown) date) HEAD/BRAIN WO CON unknown) (unknown) (no (unknown) (unknown) PROCEDURE:? XR (units (unknown) date) CHEST 1V unknown) (unknown) (no (unknown) (unknown) PSYCH: Not (units (unk nown) date) anxious, is unknown) cooperative (unknown) (no (unknown) (unknown) PT (10.1-12.7) (units (unknown) date) SECONDS unknown) (unknown) (no (unknown) (unknown) PT 17.6 H (units (unkn own) date) (10.1-12.7) unknown) SECONDS (unknown) (no (unknown) (unknown) Partial (units (unkno wn) date) Thromboplastin unknown) Time Stat (unknown) (no (unknown) (unknown) Patient (units (unkno wn) date) Disposition: unknown) Admitted as Observation (unknown) (no (unknown) (unknown) Patient History (units (unknown) date) unknown) (unknown) (no (unknown) (unknown) Patient brought (units (unknown) date) in by from unknown) Cardiology office for routine office visit. I (unknown) (no (unknown) (unknown) Patient: (units (unkno wn) date) Yoseph Cardoso unknown) MR#: [id number] (unknown) (no (unknown) (unknown) Patient: (units (unkno wn) date) Yoseph Cardoso unknown) (unknown) (no (unknown) (unknown) Plt Count (units (unkn own) date) (150-400) X103/uL unknown) (unknown) (no (unknown) (unknown) Plt Count 222 (units ( unknown) date) (150-400) X103/uL unknown) (unknown) (no (unknown) (unknown) Potassium (units (unkn own) date) (3.4-5.1) mmol/L unknown) (unknown) (no (unknown) (unknown) Potassium 4.8 (units ( unknown) date) (3.4-5.1) mmol/L unknown) (unknown) (no (unknown) (unknown) Prescriptions: (units (unknown) date) unknown) (unknown) (no (unknown) (unknown) Procalcitonin (units ( unknown) date) (<0.5) ng/mL unknown) (unknown) (no (unknown) (unknown) Procalcitonin (units ( unknown) date) 3.27 H (<0.5) unknown) ng/mL (unknown) (no (unknown) (unknown) Procalcitonin (units ( unknown) date) Stat unknown) (unknown) (no (unknown) (unknown) Procedure: CT (units ( unknown) date) chest w con unknown) (unknown) (no (unknown) (unknown) Procedure: CT (units ( unknown) date) head/brain wo con unknown) (unknown) (no (unknown) (unknown) Procedure: XR (units ( unknown) date) chest 1V unknown) (unknown) (no (unknown) (unknown) Prothrombin Time (units (unknown) date) INR Stat unknown) (unknown) (no (unknown) (unknown) Pulse Oximetry (units (unknown) date) 100 96 unknown) (unknown) (no (unknown) (unknown) Pulse Oximetry 91 (units (unknown) date) 93 unknown) (unknown) (no (unknown) (unknown) Pulse Oximetry 96 (units (unknown) date) 96 unknown) (unknown) (no (unknown) (unknown) Pulse Oximetry 98 (units (unknown) date) 06/16/22 12:21 unknown) (unknown) (no (unknown) (unknown) Pulse Oximetry 98 (units (unknown) date) 93 unknown) (unknown) (no (unknown) (unknown) Pulse Oximetry 98 (units (unknown) date) unknown) (unknown) (no (unknown) (unknown) Pulse Rate 70 72 (units (unknown) date) unknown) (unknown) (no (unknown) (unknown) Pulse Rate 71 73 (units (unknown) date) unknown) (unknown) (no (unknown) (unknown) Pulse Rate 73 75 (units (unknown) date) unknown) (unknown) (no (unknown) (unknown) Pulse Rate 76 (units ( unknown) date) unknown) (unknown) (no (unknown) (unknown) Pulse Rate 78 (units ( unknown) date) 06/16/22 12:21 unknown) (unknown) (no (unknown) (unknown) Pulse Rate 78 79 (units (unknown) date) unknown) (unknown) (no (unknown) (unknown) RBC (4.5-5.9) (units ( unknown) date) X106/uL unknown) (unknown) (no (unknown) (unknown) RBC 5.05 (units (unkno wn) date) (4.5-5.9) X106/uL unknown) (unknown) (no (unknown) (unknown) RDW (11.6-14.8) % (units (unknown) date) unknown) (unknown) (no (unknown) (unknown) RDW 14.4 (units (unkno wn) date) (11.6-14.8) % unknown) (unknown) (no (unknown) (unknown) RESPIRATORY: Clear (units (unknown) date) to auscultation. unknown) Breath sounds equal bilaterally. No wheezes, (unknown) (no (unknown) (unknown) RESPIRATORY: (units (u nknown) date) negative dyspnea, unknown) cough (unknown) (no (unknown) (unknown) ROS Unobtainable: (units (unknown) date) All systems unknown) reviewed + are unremarkable except as noted in HPI (unknown) (no (unknown) (unknown) RSV (PCR) (units (unkn own) date) (Negative) unknown) (unknown) (no (unknown) (unknown) RSV (PCR) (units (unkn own) date) Negative unknown) (Negative) (unknown) (no (unknown) (unknown) RT Consult Eval (units (unknown) date) and Treat NOW unknown) (unknown) (no (unknown) (unknown) Radiologist (units (un known) date) Impression: unknown) (unknown) (no (unknown) (unknown) Re-evaluations: (units (unknown) date) Reviewed with unknown) patient and . They do agree for admission. (unknown) (no (unknown) (unknown) Referrals: (units (unk nown) date) unknown) (unknown) (no (unknown) (unknown) Related Data (units (u nknown) date) unknown) (unknown) (no (unknown) (unknown) Respiratory Rate (units (unknown) date) 17 16 unknown) (unknown) (no (unknown) (unknown) Respiratory Rate (units (unknown) date) 20 13 unknown) (unknown) (no (unknown) (unknown) Respiratory Rate (units (unknown) date) 22 06/16/22 12:21 unknown) (unknown) (no (unknown) (unknown) Respiratory Rate (units (unknown) date) 22 14 unknown) (unknown) (no (unknown) (unknown) Respiratory Rate (units (unknown) date) 22 unknown) (unknown) (no (unknown) (unknown) Review of Systems (units (unknown) date) unknown) (unknown) (no (unknown) (unknown) SARS-CoV-2 (PCR) (units (unknown) date) (Negative) unknown) (unknown) (no (unknown) (unknown) SARS-CoV-2 (PCR) (units (unknown) date) Negative unknown) (Negative) (unknown) (no (unknown) (unknown) SKIN: Warm and (units (unknown) date) dry unknown) (unknown) (no (unknown) (unknown) SKIN: negative (units (unknown) date) rash, skin lesions unknown) (unknown) (no (unknown) (unknown) Signed By: (units (unk nown) date) unknown) (unknown) (no (unknown) (unknown) Signed (units (unkno wn) date) unknown) (unknown) (no (unknown) (unknown) Smoking Status: (units (unknown) date) Smoker, status unknown) unknown (unknown) (no (unknown) (unknown) Social History (units (unknown) date) (Reviewed 06/16/22 unknown) @ 14:04 by Matt Swartz MD) (unknown) (no (unknown) (unknown) Sodium (137-145) (units (unknown) date) mmol/L unknown) (unknown) (no (unknown) (unknown) Sodium 135 L (units (u nknown) date) (137-145) mmol/L unknown) (unknown) (no (unknown) (unknown) Sodium Chloride (units (unknown) date) (Normal Saline unknown) 0.9%) 1,000 mls @ 1,000 mls/hr IV BOLUS ONE (unknown) (no (unknown) (unknown) Source: patient (units (unknown) date) and family unknown) (unknown) (no (unknown) (unknown) Stated complaint: (units (unknown) date) Pain near unknown) pacemaker (unknown) (no (unknown) (unknown) Stop: 06/16/22 (units (unknown) date) 13:43 unknown) (unknown) (no (unknown) (unknown) Substance Use (units ( unknown) date) Type: does not use unknown) (unknown) (no (unknown) (unknown) Surgical changes (units (unknown) date) and devices:? Left unknown) chest wall pulse generator with dual-chamber (unknown) (no (unknown) (unknown) TECHNIQUE:? One (units (unknown) date) view of the chest unknown) was acquired.? (unknown) (no (unknown) (unknown) TECHNIQUE:? (units (un known) date) unknown) (unknown) (no (unknown) (unknown) There is also (units ( unknown) date) heterogeneous unknown) appearance of the spleen. (unknown) (no (unknown) (unknown) Time Seen by (units (u nknown) date) Provider: 06/16/22 unknown) 12:46 (unknown) (no (unknown) (unknown) Total Bilirubin (units (unknown) date) (0.2-1.3) mg/dL unknown) (unknown) (no (unknown) (unknown) Total Bilirubin (units (unknown) date) 2.1 H (0.2-1.3) unknown) mg/dL (unknown) (no (unknown) (unknown) Total Creatine (units (unknown) date) Kinase (55-170) unknown) U/L (unknown) (no (unknown) (unknown) Total Creatine (units (unknown) date) Kinase 53 L unknown) (55-170) U/L (unknown) (no (unknown) (unknown) Total Protein (units ( unknown) date) (6.3-8.2) g/dL unknown) (unknown) (no (unknown) (unknown) Total Protein 5.8 (units (unknown) date) L (6.3-8.2) g/dL unknown) (unknown) (no (unknown) (unknown) Treatments: IV (units (unknown) date) fluid unknown) (unknown) (no (unknown) (unknown) Troponin + CK (units ( unknown) date) Cardiac Panel Stat unknown) (unknown) (no (unknown) (unknown) Troponin I < (units (u nknown) date) 0.012 (0.01-0.034) unknown) ng/mL (unknown) (no (unknown) (unknown) Troponin I (units (unk nown) date) (0.01-0.034) ng/mL unknown) (unknown) (no (unknown) (unknown) Upper abdomen:? (units (unknown) date) Heterogeneous unknown) appearance of the liver, not well evaluated on (unknown) (no (unknown) (unknown) Vital Signs - 8 (units (unknown) date) hr unknown) (unknown) (no (unknown) (unknown) Vital Signs (units (un known) date) unknown) (unknown) (no (unknown) (unknown) Vital signs: (units (u nknown) date) unknown) (unknown) (no (unknown) (unknown) Volume:? Vascular (units (unknown) date) calcifications. unknown) Periventricular white matter disease is (unknown) (no (unknown) (unknown) WBC (4.5-11.0) (units (unknown) date) X103/uL unknown) (unknown) (no (unknown) (unknown) WBC 9.6 (units (unkno wn) date) (4.5-11.0) X103/uL unknown) (unknown) (no (unknown) (unknown) [facility] (units (unknown) date) ER for evaluation unknown) of dark urine. CT abdomen pelvis were done, (unknown) (no (unknown) (unknown) XR chest 1V Stat (units (unknown) date) unknown) (unknown) (no (unknown) (unknown) XRay Report (units (un known) date) unknown) (unknown) (no (unknown) (unknown) [Embedded Image (units (unknown) date) Not Available] unknown) (unknown) (no (unknown) (unknown) [From Prevnar] (units (unknown) date) and feet x unknown) (unknown) (no (unknown) (unknown) after. (units (unkno wn) date) unknown) (unknown) (no (unknown) (unknown) agrees for (units (unk nown) date) admission. unknown) (unknown) (no (unknown) (unknown) alcohol intake (units (unknown) date) frequency: a few unknown) times a month (unknown) (no (unknown) (unknown) and below (units (unkn own) date) unknown) (unknown) (no (unknown) (unknown) and/or (units (unkno wn) date) unknown) (unknown) (no (unknown) (unknown) appear (units (unkno wn) date) unknown) (unknown) (no (unknown) (unknown) appearing (units (unkn own) date) unknown) (unknown) (no (unknown) (unknown) assess for (units (unk nown) date) resolution. unknown) (unknown) (no (unknown) (unknown) atelectasis (units (un known) date) unknown) (unknown) (no (unknown) (unknown) commonly seen (units ( unknown) date) unknown) (unknown) (no (unknown) (unknown) conjugate to of (units (unknown) date) hands unknown) (unknown) (no (unknown) (unknown) consider (units (unkno wn) date) nonemergent MRI if unknown) necessary.? (unknown) (no (unknown) (unknown) coronal and (units (un known) date) sagittal reformats unknown) and 7 mm axial MIP were acquired.? For radiation (unknown) (no (unknown) (unknown) criteria. (units (unkn own) date) unknown) (unknown) (no (unknown) (unknown) denies any chest (units (unknown) date) pain back pain unknown) abdominal pain or headache. (unknown) (no (unknown) (unknown) dose (units (unkno wn) date) unknown) (unknown) (no (unknown) (unknown) electrode leads (units (unknown) date) in place. unknown) (unknown) (no (unknown) (unknown) facial droop. (units ( unknown) date) Fast exam is unknown) negative. Cardiology does not feel this is cardiac (unknown) (no (unknown) (unknown) facial droop. (units ( unknown) date) Fast exam is unknown) negative. Patient denies any chest pain abdominal (unknown) (no (unknown) (unknown) failure (units (unkno wn) date) thrive/dementia/Pa unknown) rkinson's (unknown) (no (unknown) (unknown) following (units (unkn own) date) unknown) (unknown) (no (unknown) (unknown) from the (units (unkno wn) date) unknown) (unknown) (no (unknown) (unknown) further (units (unkno wn) date) evaluation for unknown) abnormal laboratory studies. Patient could be early (unknown) (no (unknown) (unknown) generator (units (unkn own) date) unknown) (unknown) (no (unknown) (unknown) greater on the (units (unknown) date) unknown) (unknown) (no (unknown) (unknown) hands with strong (units (unknown) date) equal warehouse helper unknown) 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 (unknown) (no (unknown) (unknown) health/weight (units ( unknown) date) loss cachexia and unknown) balance issues. He had concern for neoplastic (unknown) (no (unknown) (unknown) hemoglobin 15.4 (units (unknown) date) hematocrit 46.6 unknown) platelets 222 PT 17.6 INR 1.5 PTT 38 sodium 135 (unknown) (no (unknown) (unknown) heterogeneous (units ( unknown) date) unknown) (unknown) (no (unknown) (unknown) history, and (units (u nknown) date) unknown) (unknown) (no (unknown) (unknown) intact. (units (unkno wn) date) unknown) (unknown) (no (unknown) (unknown) kV according to (units (unknown) date) patient size.? unknown) (unknown) (no (unknown) (unknown) lactic acid have (units (unknown) date) been ordered unknown) (unknown) (no (unknown) (unknown) maintained. (units (un known) date) unknown) (unknown) (no (unknown) (unknown) moderate (units (unkno wn) date) unknown) (unknown) (no (unknown) (unknown) no acute process (units (unknown) date) other than unknown) diverticulosis without diverticulitis. states (unknown) (no (unknown) (unknown) no acute process. (units (unknown) date) CT chest unknown) nonspecific opacities (unknown) (no (unknown) (unknown) opacities.? No (units (unknown) date) pleural unknown) effusions.? (unknown) (no (unknown) (unknown) or early airspace (units (unknown) date) disease.? Consider unknown) future imaging surveillance to assess for (unknown) (no (unknown) (unknown) pain back pain (units (unknown) date) headache unknown) (unknown) (no (unknown) (unknown) parenchymal (units (un known) date) unknown) (unknown) (no (unknown) (unknown) pathology, (units (unk nown) date) consider MRI. unknown) (unknown) (no (unknown) (unknown) patient has had 30 (units (unknown) date) lb weight loss in unknown) the past few months with night sweats it in (unknown) (no (unknown) (unknown) patient (units (unkno wn) date) unknown) (unknown) (no (unknown) (unknown) pneumococcal (units (u nknown) date) 7-valent AdvReac unknown) Intermediate swelling Verified 06/16/22 12:46 (unknown) (no (unknown) (unknown) positive night (units (unknown) date) sweats. Positive unknown) weight loss (unknown) (no (unknown) (unknown) potassium 4.8 BUN (units (unknown) date) 34 creatinine 0.99 unknown) glucose 146 lactic acid 4.3. BNP 1430 (unknown) (no (unknown) (unknown) process. I spoke (units (unknown) date) with dr gillette. unknown) However, patient was recently seen at (unknown) (no (unknown) (unknown) pulmonary apices (units (unknown) date) to the posterior unknown) costophrenic angles.? 1 mm axial lung, 5 mm (unknown) (no (unknown) (unknown) rales, or (units (unkn own) date) rhonchi. unknown) (unknown) (no (unknown) (unknown) reduction, the (units ( unknown) date) following was unknown) used:? automated exposure control, adjustment of mA (unknown) (no (unknown) (unknown) related. Patient (units (unknown) date) here for routine unknown) annual cardiac workup/checkup. Patient (unknown) (no (unknown) (unknown) resolution. (units (un known) date) unknown) (unknown) (no (unknown) (unknown) right greater than (units (unknown) date) left pleural unknown) effusions.? Consider future imaging surveillance (unknown) (no (unknown) (unknown) right.? Bibasilar (units (unknown) date) opacities and unknown) nodularity also present. (unknown) (no (unknown) (unknown) sepsis. Patient (units (unknown) date) and family agree unknown) for admit. I did speak with hospitalist (unknown) (no (unknown) (unknown) should be (units (unkn own) date) admitted for unknown) observation. Do not start any antibiotics at this time. (unknown) (no (unknown) (unknown) shuffled gait. (units (unknown) date) Generalized unknown) weakness and malaise. However no slurred speech or (unknown) (no (unknown) (unknown) size (units (unkno wn) date) unknown) (unknown) (no (unknown) (unknown) size.? 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 (units (unknown) date) Patient has unknown) history of melanoma. Patient has had recently (unknown) (no (unknown) (unknown) thick (units (unkno wn) date) unknown) (unknown) (no (unknown) (unknown) this study.? (units (u nknown) date) unknown) (unknown) (no (unknown) (unknown) to the (units (unkno wn) date) unknown) (unknown) (no (unknown) (unknown) to (units (unkno wn) date) unknown) (unknown) (no (unknown) (unknown) toxic at this (units ( unknown) date) time. unknown) (unknown) (no (unknown) (unknown) troponin less (units ( unknown) date) than 0.012, unknown) procalcitonin 3.27 (unknown) (no (unknown) (unknown) unremarkable.? (units (unknown) date) unknown) (unknown) (no (unknown) (unknown) vertex, with (units (u nknown) date) coronal and unknown) sagittal reformats.? For radiation dose reduction, the (unknown) (no (unknown) (unknown) visit from a few (units (unknown) date) days ago unknown) (unknown) (no (unknown) (unknown) was used:? (units (unk nown) date) automated exposure unknown) control, adjustment of mA and/or kV according to (unknown) (no (unknown) (unknown) which may be (units (u nknown) date) related to liver unknown) disease.? Please correlate with LFTs, clinical (unknown) (no (unknown) (unknown) with chronic (units (u nknown) date) microangiopathy. unknown) Volume loss is present. These findings are (unknown) (no (unknown) (unknown) with electrode (units (unknown) date) leads.? Coronary unknown) calcifications.? No pathologic adenopathy by Result panel 202 (unknown) (no date) (unknown) (unknown) 2.6 mg/dl (unkn own) (unknown) (no date) (unknown) (unknown) 2.7 mmol/l (unkn own) (unknown) (no date) (unknown) (unknown) 4.1 mg/dl (unkn own) Result panel 203 (unknown) (no date) (unknown) (unknown) 1 (units (unkn own) unknown) (unknown) (no date) (unknown) (unknown) 1.0 e.u./dl (unkn own) (unknown) (no date) (unknown) (unknown) 1.020 (units (unkn own) unknown) (unknown) (no date) (unknown) (unknown) 3 (units (unkn own) unknown) (unknown) (no date) (unknown) (unknown) 6.5 (units (unkn own) unknown) (unknown) (no date) (unknown) (unknown) BROWN (units (unkn own) unknown) (unknown) (no date) (unknown) (unknown) BROWN (units (unkn own) unknown) (unknown) (no date) (unknown) (unknown) CLOUDY (units (unkn own) unknown) (unknown) (no date) (unknown) (unknown) NEGATIVE g/dl (unkn own) (unknown) (no date) (unknown) (unknown) POSITIVE (units (unkn own) unknown) (unknown) (no date) (unknown) (unknown) TRACE (units (unkn own) unknown) (unknown) (no date) (unknown) (unknown) TRACE-INTACT (units ( unknown) unknown) Result panel 204 (unknown) (no date) (unknown) (unknown) 1 (units (unkn own) unknown) (unknown) (no date) (unknown) (unknown) 1-5 /HPF (units (unkn own) unknown) (unknown) (no date) (unknown) (unknown) 1-5/HPF (units (unkn own) unknown) (unknown) (no date) (unknown) (unknown) 1.0 e.u./dl (unkn own) (unknown) (no date) (unknown) (unknown) 1.020 (units (unkn own) unknown) (unknown) (no date) (unknown) (unknown) 10-30/HPF (units (unk nown) unknown) (unknown) (no date) (unknown) (unknown) 3 (units (unkn own) unknown) (unknown) (no date) (unknown) (unknown) 6.5 (units (unkn own) unknown) (unknown) (no date) (unknown) (unknown) BROWN (units (unkn own) unknown) (unknown) (no date) (unknown) (unknown) BROWN (units (unkn own) unknown) (unknown) (no date) (unknown) (unknown) CLOUDY (units (unkn own) unknown) (unknown) (no date) (unknown) (unknown) NEGATIVE g/dl (unkn own) (unknown) (no date) (unknown) (unknown) None Seen (units (unk nown) unknown) (unknown) (no date) (unknown) (unknown) POSITIVE (units (unkn own) unknown) (unknown) (no date) (unknown) (unknown) Positive (units (unkn own) unknown) (unknown) (no date) (unknown) (unknown) Specimen (units (unkn own) Cultured unknown) (unknown) (no date) (unknown) (unknown) TRACE (units (unkn own) unknown) (unknown) (no date) (unknown) (unknown) TRACE-INTACT (units ( unknown) unknown) Result panel 205 (unknown) (no (unknown) (unknown) (no value) (units (unk nown) date) unknown) (unknown) (no (unknown) (unknown) (past 8 hours): (units (unknown) date) unknown) (unknown) (no (unknown) (unknown) [id number] (units (unkno wn) date) unknown) (unknown) (no (unknown) (unknown) 06/16/22 (units (unkno wn) date) 06/16/22 06/16/22 unknown) (unknown) (no (unknown) (unknown) 06/16/22 (units (unkno wn) date) 06/16/22 unknown) (unknown) (no (unknown) (unknown) 06/16/22 12:35 (units (unknown) date) unknown) (unknown) (no (unknown) (unknown) 06/16/22 (units (unkno wn) date) unknown) (unknown) (no (unknown) (unknown) 12:35 12:35 (units (un known) date) 12:35 unknown) (unknown) (no (unknown) (unknown) 13:15 06/16/22 (units (unknown) date) unknown) (unknown) (no (unknown) (unknown) 13:30 (units (unkno wn) date) unknown) (unknown) (no (unknown) (unknown) 13:45 06/16/22 (units (unknown) date) unknown) (unknown) (no (unknown) (unknown) 13:46 06/16/22 (units (unknown) date) unknown) (unknown) (no (unknown) (unknown) 13:46 (units (unkno wn) date) unknown) (unknown) (no (unknown) (unknown) 14:00 06/16/22 (units (unknown) date) unknown) (unknown) (no (unknown) (unknown) 14:24 (units (unkno wn) date) unknown) (unknown) (no (unknown) (unknown) 14:30 06/16/22 (units (unknown) date) unknown) (unknown) (no (unknown) (unknown) 14:45 06/16/22 (units (unknown) date) unknown) (unknown) (no (unknown) (unknown) 15:00 (units (unkno wn) date) unknown) (unknown) (no (unknown) (unknown) 15:15 06/16/22 (units (unknown) date) unknown) (unknown) (no (unknown) (unknown) 15:30 06/16/22 (units (unknown) date) unknown) (unknown) (no (unknown) (unknown) 15:30 17:55 (units (un known) date) unknown) (unknown) (no (unknown) (unknown) 15:34 06/16/22 (units (unknown) date) unknown) (unknown) (no (unknown) (unknown) 15:34 (units (unkno wn) date) unknown) (unknown) (no (unknown) (unknown) 15:45 06/16/22 (units (unknown) date) unknown) (unknown) (no (unknown) (unknown) 15:45 (units (unkno wn) date) unknown) (unknown) (no (unknown) (unknown) 16:00 06/16/22 (units (unknown) date) unknown) (unknown) (no (unknown) (unknown) 16:15 06/16/22 (units (unknown) date) unknown) (unknown) (no (unknown) (unknown) 16:15 (units (unkno wn) date) unknown) (unknown) (no (unknown) (unknown) 16:30 06/16/22 (units (unknown) date) unknown) (unknown) (no (unknown) (unknown) 16:31 06/16/22 (units (unknown) date) unknown) (unknown) (no (unknown) (unknown) 16:31 (units (unkno wn) date) unknown) (unknown) (no (unknown) (unknown) 16:45 06/16/22 (units (unknown) date) unknown) (unknown) (no (unknown) (unknown) 17:00 06/16/22 (units (unknown) date) unknown) (unknown) (no (unknown) (unknown) 17:00 (units (unkno wn) date) unknown) (unknown) (no (unknown) (unknown) 17:15 06/16/22 (units (unknown) date) unknown) (unknown) (no (unknown) (unknown) 17:15 (units (unkno wn) date) unknown) (unknown) (no (unknown) (unknown) 17:30 06/16/22 (units (unknown) date) unknown) (unknown) (no (unknown) (unknown) 17:45 (units (unkno wn) date) unknown) (unknown) (no (unknown) (unknown) 17:46 06/16/22 (units (unknown) date) unknown) (unknown) (no (unknown) (unknown) 17:59 (units (unkno wn) date) unknown) (unknown) (no (unknown) (unknown) 18:00 06/16/22 (units (unknown) date) unknown) (unknown) (no (unknown) (unknown) 18:01 06/16/22 (units (unknown) date) unknown) (unknown) (no (unknown) (unknown) 18:15 06/16/22 (units (unknown) date) unknown) (unknown) (no (unknown) (unknown) 18:15 (units (unkno wn) date) unknown) (unknown) (no (unknown) (unknown) 18:30 06/16/22 (units (unknown) date) unknown) (unknown) (no (unknown) (unknown) 18:30 (units (unkno wn) date) unknown) (unknown) (no (unknown) (unknown) 18:45 06/16/22 (units (unknown) date) unknown) (unknown) (no (unknown) (unknown) 19:00 06/16/22 (units (unknown) date) unknown) (unknown) (no (unknown) (unknown) 19:00 (units (unkno wn) date) unknown) (unknown) (no (unknown) (unknown) 19:15 06/16/22 (units (unknown) date) unknown) (unknown) (no (unknown) (unknown) 19:15 (units (unkno wn) date) unknown) (unknown) (no (unknown) (unknown) 19:30 06/16/22 (units (unknown) date) unknown) (unknown) (no (unknown) (unknown) 19:45 06/16/22 (units (unknown) date) unknown) (unknown) (no (unknown) (unknown) 19:45 (units (unkno wn) date) unknown) (unknown) (no (unknown) (unknown) 20:00 06/16/22 (units (unknown) date) unknown) (unknown) (no (unknown) (unknown) 20:00 (units (unkno wn) date) unknown) (unknown) (no (unknown) (unknown) 20:15 06/16/22 (units (unknown) date) unknown) (unknown) (no (unknown) (unknown) 20:30 06/16/22 (units (unknown) date) unknown) (unknown) (no (unknown) (unknown) 20:30 (units (unkno wn) date) unknown) (unknown) (no (unknown) (unknown) 20:45 06/16/22 (units (unknown) date) unknown) (unknown) (no (unknown) (unknown) 20:46 06/16/22 (units (unknown) date) unknown) (unknown) (no (unknown) (unknown) 20:46 (units (unkno wn) date) unknown) (unknown) (no (unknown) (unknown) 20:55 (units (unkno wn) date) unknown) (unknown) (no (unknown) (unknown) 34, glucose 146, (units (unknown) date) calcium 8.1, unknown) magnesium 2.6, phosphorus 4.1, bili 2.1, AST 61, (unknown) (no (unknown) (unknown) 4 mos (units (unkno wn) date) unknown) (unknown) (no (unknown) (unknown) 4.3, repeat 2.7, (units (unknown) date) procalcitonin unknown) 3.27, PT 17.6, INR 1.5, PTT 38. Sodium 135, BUN (unknown) (no (unknown) (unknown) 98% on room air. (units (unknown) date) Patient has no unknown) WBC, but left shiftneut 8200, initial lactate (unknown) (no (unknown) (unknown) ALT 63 H (units (unkno wn) date) unknown) (unknown) (no (unknown) (unknown) ALT 63, alk-phos (units (unknown) date) 428, total unknown) protein 5.8, albumin 3.1, CK 53, initial troponin (unknown) (no (unknown) (unknown) ALT (units (unkno wn) date) unknown) (unknown) (no (unknown) (unknown) APTT 38 H (units (unkn own) date) unknown) (unknown) (no (unknown) (unknown) APTT (units (unkno wn) date) unknown) (unknown) (no (unknown) (unknown) AST 61 H (units (unkno wn) date) unknown) (unknown) (no (unknown) (unknown) AST (units (unkno wn) date) unknown) (unknown) (no (unknown) (unknown) Age/Sex: 86 / M (units (unknown) date) unknown) (unknown) (no (unknown) (unknown) Albumin 3.1 L (units ( unknown) date) unknown) (unknown) (no (unknown) (unknown) Albumin (units (unkno wn) date) unknown) (unknown) (no (unknown) (unknown) Albumin/Globulin (units (unknown) date) Ratio 1.1 unknown) (unknown) (no (unknown) (unknown) Albumin/Globulin (units (unknown) date) Ratio unknown) (unknown) (no (unknown) (unknown) Alkaline (units (unkno wn) date) Phosphatase 428 H unknown) (unknown) (no (unknown) (unknown) Alkaline (units (unkno wn) date) Phosphatase unknown) (unknown) (no (unknown) (unknown) Allergies (units (unkn own) date) unknown) (unknown) (no (unknown) (unknown) Allergy/AdvReac (units (unknown) date) Type Severity unknown) Reaction Status Date / Time (unknown) (no (unknown) (unknown) Assessment + (units (u nknown) date) Plan unknown) (unknown) (no (unknown) (unknown) BUN 34 H (units (unkno wn) date) unknown) (unknown) (no (unknown) (unknown) BUN (units (unkno wn) date) unknown) (unknown) (no (unknown) (unknown) BUN/Creatinine (units (unknown) date) Ratio 34.3 H unknown) (unknown) (no (unknown) (unknown) BUN/Creatinine (units (unknown) date) Ratio unknown) (unknown) (no (unknown) (unknown) Baso # (Auto) (units ( unknown) date) 100 unknown) (unknown) (no (unknown) (unknown) Baso # (Auto) (units ( unknown) date) unknown) (unknown) (no (unknown) (unknown) Baso % (Auto) (units ( unknown) date) 0.8 unknown) (unknown) (no (unknown) (unknown) Baso % (Auto) (units ( unknown) date) unknown) (unknown) (no (unknown) (unknown) Blood Pressure (units (unknown) date) 141/57 H unknown) (unknown) (no (unknown) (unknown) Blood Pressure (units (unknown) date) 141/73 H unknown) (unknown) (no (unknown) (unknown) Blood Pressure (units (unknown) date) 142/65 H 156/70 H unknown) (unknown) (no (unknown) (unknown) Blood Pressure (units (unknown) date) 142/67 H unknown) (unknown) (no (unknown) (unknown) Blood Pressure (units (unknown) date) 143/67 H unknown) (unknown) (no (unknown) (unknown) Blood Pressure (units (unknown) date) 145/69 H unknown) (unknown) (no (unknown) (unknown) Blood Pressure (units (unknown) date) 146/69 H unknown) (unknown) (no (unknown) (unknown) Blood Pressure (units (unknown) date) 147/71 H 150/72 H unknown) (unknown) (no (unknown) (unknown) Blood Pressure (units (unknown) date) 149/68 H 130/59 L unknown) (unknown) (no (unknown) (unknown) Blood Pressure (units (unknown) date) 149/78 H 155/70 H unknown) (unknown) (no (unknown) (unknown) Blood Pressure (units (unknown) date) 150/73 H unknown) (unknown) (no (unknown) (unknown) Blood Pressure (units (unknown) date) 151/72 H unknown) (unknown) (no (unknown) (unknown) Blood Pressure (units (unknown) date) 154/73 H unknown) (unknown) (no (unknown) (unknown) Blood Pressure (units (unknown) date) 156/72 H 151/72 H unknown) (unknown) (no (unknown) (unknown) Blood Pressure (units (unknown) date) 162/114 H unknown) (unknown) (no (unknown) (unknown) Blood Pressure (units (unknown) date) 164/94 H 164/96 H unknown) (unknown) (no (unknown) (unknown) Blood Pressure (units (unknown) date) 179/74 H 179/94 H unknown) (unknown) (no (unknown) (unknown) Blood Pressure (units (unknown) date) 186/112 H 169/75 unknown) H (unknown) (no (unknown) (unknown) Blood Pressure (units (unknown) date) unknown) (unknown) (no (unknown) (unknown) CK-MB (CK-2) Rel (units (unknown) date) Index TNP unknown) (unknown) (no (unknown) (unknown) CK-MB (CK-2) Rel (units (unknown) date) Index unknown) (unknown) (no (unknown) (unknown) CK-MB (CK-2) TNP (units (unknown) date) unknown) (unknown) (no (unknown) (unknown) CK-MB (CK-2) (units (u nknown) date) unknown) (unknown) (no (unknown) (unknown) Calcium 8.1 L (units ( unknown) date) unknown) (unknown) (no (unknown) (unknown) Calcium (units (unkno wn) date) unknown) (unknown) (no (unknown) (unknown) Carbon Dioxide (units (unknown) date) 28 unknown) (unknown) (no (unknown) (unknown) Carbon Dioxide (units (unknown) date) unknown) (unknown) (no (unknown) (unknown) Chief complaint: (units (unknown) date) Pain near unknown) pacemaker (unknown) (no (unknown) (unknown) Chloride 99 (units (un known) date) unknown) (unknown) (no (unknown) (unknown) Chloride (units (unkno wn) date) unknown) (unknown) (no (unknown) (unknown) Creatinine 0.99 (units (unknown) date) unknown) (unknown) (no (unknown) (unknown) Creatinine (units (unk nown) date) unknown) (unknown) (no (unknown) (unknown) Critical Care (units ( unknown) date) time: unknown) (unknown) (no (unknown) (unknown) : 1935 (units (unknown) date) Acct:[id number] unknown) (unknown) (no (unknown) (unknown) Date Patient (units (u nknown) date) Seen: 06/16/22 unknown) (unknown) (no (unknown) (unknown) Date of Service: (units (unknown) date) 06/16/22 unknown) (unknown) (no (unknown) (unknown) Yoseph Cardoso is (units (unknown) date) a 86-year-old unknown) male with a history of atrial fibrillation, with (unknown) (no (unknown) (unknown) Environment (units (un known) date) unknown) (unknown) (no (unknown) (unknown) Eos # (Auto) 0 (units (unknown) date) unknown) (unknown) (no (unknown) (unknown) Eos # (Auto) (units (u nknown) date) unknown) (unknown) (no (unknown) (unknown) Eos % (Auto) 0.1 (units (unknown) date) L unknown) (unknown) (no (unknown) (unknown) Eos % (Auto) (units (u nknown) date) unknown) (unknown) (no (unknown) (unknown) Estimated GFR > (units (unknown) date) 60 unknown) (unknown) (no (unknown) (unknown) Estimated GFR (units ( unknown) date) unknown) (unknown) (no (unknown) (unknown) Exam (units (unkno wn) date) unknown) (unknown) (no (unknown) (unknown) Family + Social (units (unknown) date) History unknown) (unknown) (no (unknown) (unknown) Feels Safe in (units ( unknown) date) Current Yes unknown) (unknown) (no (unknown) (unknown) Fever, jaundice, (units (unknown) date) right upper unknown) quadrant pain? (unknown) (no (unknown) (unknown) Globulin 2.7 (units (u nknown) date) unknown) (unknown) (no (unknown) (unknown) Globulin (units (unkno wn) date) unknown) (unknown) (no (unknown) (unknown) Glucose 146 H (units ( unknown) date) unknown) (unknown) (no (unknown) (unknown) Glucose (units (unkno wn) date) unknown) (unknown) (no (unknown) (unknown) Hct 46.6 (units (unkno wn) date) unknown) (unknown) (no (unknown) (unknown) Hct (units (unkno wn) date) unknown) (unknown) (no (unknown) (unknown) Hgb 15.4 (units (unkno wn) date) unknown) (unknown) (no (unknown) (unknown) Hgb (units (unkno wn) date) unknown) (unknown) (no (unknown) (unknown) History + (units (unkn own) date) Physical Report unknown) (unknown) (no (unknown) (unknown) History of (units (unk nown) date) Present Illness unknown) (unknown) (no (unknown) (unknown) Home Medications (units (unknown) date) and Allergies unknown) (unknown) (no (unknown) (unknown) Home Medications (units (unknown) date) unknown) (unknown) (no (unknown) (unknown) I spent a total (units (unknown) date) of [] minutes of unknown) critical care time on this patient's care (unknown) (no (unknown) (unknown) INR 1.5 H (units (unkn own) date) unknown) (unknown) (no (unknown) (unknown) INR (units (unkno wn) date) unknown) (unknown) (no (unknown) (unknown) Influenza A (units (un known) date) (RT-PCR) Flu a unknown) negative (unknown) (no (unknown) (unknown) Influenza A (units (un known) date) (RT-PCR) unknown) (unknown) (no (unknown) (unknown) Influenza B (units (un known) date) (RT-PCR) Flu b unknown) negative (unknown) (no (unknown) (unknown) Influenza B (units (un known) date) (RT-PCR) unknown) (unknown) (no (unknown) (unknown) [facility] (units (unknown) date) [address] unknown) [place] [address] (unknown) (no (unknown) (unknown) Laboratory (units (unk nown) date) Results - last 24 unknown) hr (unknown) (no (unknown) (unknown) Labs (units (unkno wn) date) unknown) (unknown) (no (unknown) (unknown) Labs: (units (unkno wn) date) unknown) (unknown) (no (unknown) (unknown) Lactate 2.7 H (units ( unknown) date) unknown) (unknown) (no (unknown) (unknown) Lactate 4.3 H* (units (unknown) date) unknown) (unknown) (no (unknown) (unknown) Lactate (units (unkno wn) date) unknown) (unknown) (no (unknown) (unknown) Lipase 45 (units (unkn own) date) unknown) (unknown) (no (unknown) (unknown) Lipase (units (unkno wn) date) unknown) (unknown) (no (unknown) (unknown) Lymph # (Auto) (units (unknown) date) 400 L unknown) (unknown) (no (unknown) (unknown) Lymph # (Auto) (units (unknown) date) unknown) (unknown) (no (unknown) (unknown) Lymph % (Auto) (units (unknown) date) 4.6 L unknown) (unknown) (no (unknown) (unknown) Lymph % (Auto) (units (unknown) date) unknown) (unknown) (no (unknown) (unknown) MCH 30.4 (units (unkno wn) date) unknown) (unknown) (no (unknown) (unknown) MCH (units (unkno wn) date) unknown) (unknown) (no (unknown) (unknown) MCHC 33.0 (units (unkn own) date) unknown) (unknown) (no (unknown) (unknown) MCHC (units (unkno wn) date) unknown) (unknown) (no (unknown) (unknown) MCV 92.4 (units (unkno wn) date) unknown) (unknown) (no (unknown) (unknown) MCV (units (unkno wn) date) unknown) (unknown) (no (unknown) (unknown) Magnesium 2.6 H (units (unknown) date) unknown) (unknown) (no (unknown) (unknown) Magnesium (units (unkn own) date) unknown) (unknown) (no (unknown) (unknown) Medication (units (unk nown) date) Instructions unknown) Recorded Confirmed Type (unknown) (no (unknown) (unknown) Meds (units (unkno wn) date) unknown) (unknown) (no (unknown) (unknown) [place] # (Auto) (units ( unknown) date) 900 unknown) (unknown) (no (unknown) (unknown) [place] # (Auto) (units ( unknown) date) unknown) (unknown) (no (unknown) (unknown) [place] % (Auto) (units ( unknown) date) 9.4 unknown) (unknown) (no (unknown) (unknown) [place] % (Auto) (units ( unknown) date) unknown) (unknown) (no (unknown) (unknown) NT-Pro-B (units (unkno wn) date) Natriuret Pep unknown) 1430 H (unknown) (no (unknown) (unknown) NT-Pro-B (units (unkno wn) date) Natriuret Pep unknown) (unknown) (no (unknown) (unknown) Narrative: (units (unk nown) date) unknown) (unknown) (no (unknown) (unknown) Neut # (Auto) (units ( unknown) date) 8200 H unknown) (unknown) (no (unknown) (unknown) Neut # (Auto) (units ( unknown) date) unknown) (unknown) (no (unknown) (unknown) Neut % (Auto) (units ( unknown) date) 85.1 H unknown) (unknown) (no (unknown) (unknown) Neut % (Auto) (units ( unknown) date) unknown) (unknown) (no (unknown) (unknown) No Known Home (units ( unknown) date) Medications unknown) 12/20/20 12/20/20 History (unknown) (no (unknown) (unknown) Objective (units (unkn own) date) unknown) (unknown) (no (unknown) (unknown) On admit patient (units (unknown) date) denies chest unknown) pain, shortness in breath, headache, changes in (unknown) (no (unknown) (unknown) Oxygen Delivery (units (unknown) date) Method Room Air unknown) (unknown) (no (unknown) (unknown) Oxygen Delivery (units (unknown) date) Method unknown) (unknown) (no (unknown) (unknown) PT 17.6 H (units (unkn own) date) unknown) (unknown) (no (unknown) (unknown) PT (units (unkno wn) date) unknown) (unknown) (no (unknown) (unknown) Patient History (units (unknown) date) unknown) (unknown) (no (unknown) (unknown) Patient: (units (unkno wn) date) Yoseph Cardoso unknown) MR#: [id number] (unknown) (no (unknown) (unknown) Phosphorus 4.1 H (units (unknown) date) unknown) (unknown) (no (unknown) (unknown) Phosphorus (units (unk nown) date) unknown) (unknown) (no (unknown) (unknown) Plt Count 222 (units ( unknown) date) unknown) (unknown) (no (unknown) (unknown) Plt Count (units (unkn own) date) unknown) (unknown) (no (unknown) (unknown) Potassium 4.8 (units ( unknown) date) unknown) (unknown) (no (unknown) (unknown) Potassium (units (unkn own) date) unknown) (unknown) (no (unknown) (unknown) Procalcitonin (units ( unknown) date) 3.27 H unknown) (unknown) (no (unknown) (unknown) Procalcitonin (units ( unknown) date) unknown) (unknown) (no (unknown) (unknown) Provider: (units (unkn own) date) Hawa Michael unknown) 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 (unknown) (no (unknown) (unknown) Pulse Oximetry (units (unknown) date) 93 100 unknown) (unknown) (no (unknown) (unknown) Pulse Oximetry (units (unknown) date) 94 96 unknown) (unknown) (no (unknown) (unknown) Pulse Oximetry (units (unknown) date) 95 unknown) (unknown) (no (unknown) (unknown) Pulse Oximetry (units (unknown) date) 96 91 unknown) (unknown) (no (unknown) (unknown) Pulse Oximetry (units (unknown) date) 96 99 unknown) (unknown) (no (unknown) (unknown) Pulse Oximetry (units (unknown) date) 96 unknown) (unknown) (no (unknown) (unknown) Pulse Oximetry (units (unknown) date) 97 96 97 unknown) (unknown) (no (unknown) (unknown) Pulse Oximetry (units (unknown) date) 97 97 98 unknown) (unknown) (no (unknown) (unknown) Pulse Oximetry (units (unknown) date) 97 97 unknown) (unknown) (no (unknown) (unknown) Pulse Oximetry (units (unknown) date) 97 unknown) (unknown) (no (unknown) (unknown) Pulse Oximetry (units (unknown) date) 98 97 unknown) (unknown) (no (unknown) (unknown) Pulse Oximetry (units (unknown) date) 98 unknown) (unknown) (no (unknown) (unknown) Pulse Oximetry (units (unknown) date) unknown) (unknown) (no (unknown) (unknown) Pulse Rate 111 H (units (unknown) date) unknown) (unknown) (no (unknown) (unknown) Pulse Rate 114 H (units (unknown) date) 118 H unknown) (unknown) (no (unknown) (unknown) Pulse Rate 154 H (units (unknown) date) unknown) (unknown) (no (unknown) (unknown) Pulse Rate 72 66 (units (unknown) date) unknown) (unknown) (no (unknown) (unknown) Pulse Rate 72 71 (units (unknown) date) unknown) (unknown) (no (unknown) (unknown) Pulse Rate 72 74 (units (unknown) date) unknown) (unknown) (no (unknown) (unknown) Pulse Rate 72 (units ( unknown) date) unknown) (unknown) (no (unknown) (unknown) Pulse Rate 73 74 (units (unknown) date) unknown) (unknown) (no (unknown) (unknown) Pulse Rate 73 87 (units (unknown) date) 98 H unknown) (unknown) (no (unknown) (unknown) Pulse Rate 73 (units ( unknown) date) unknown) (unknown) (no (unknown) (unknown) Pulse Rate 74 (units ( unknown) date) 104 H 106 H unknown) (unknown) (no (unknown) (unknown) Pulse Rate 75 (units ( unknown) date) 116 H unknown) (unknown) (no (unknown) (unknown) Pulse Rate 75 70 (units (unknown) date) unknown) (unknown) (no (unknown) (unknown) Pulse Rate 75 74 (units (unknown) date) 74 unknown) (unknown) (no (unknown) (unknown) Pulse Rate 75 (units ( unknown) date) unknown) (unknown) (no (unknown) (unknown) Pulse Rate 76 (units ( unknown) date) unknown) (unknown) (no (unknown) (unknown) Pulse Rate 78 75 (units (unknown) date) unknown) (unknown) (no (unknown) (unknown) Pulse Rate 84 77 (units (unknown) date) unknown) (unknown) (no (unknown) (unknown) Pulse Rate 86 72 (units (unknown) date) unknown) (unknown) (no (unknown) (unknown) Pulse Rate 98 H (units (unknown) date) unknown) (unknown) (no (unknown) (unknown) RBC 5.05 (units (unkno wn) date) unknown) (unknown) (no (unknown) (unknown) RBC (units (unkno wn) date) unknown) (unknown) (no (unknown) (unknown) RDW 14.4 (units (unkno wn) date) unknown) (unknown) (no (unknown) (unknown) RDW (units (unkno wn) date) unknown) (unknown) (no (unknown) (unknown) RSV (PCR) (units (unkn own) date) Negative unknown) (unknown) (no (unknown) (unknown) RSV (PCR) (units (unkn own) date) unknown) (unknown) (no (unknown) (unknown) Respiratory Rate (units (unknown) date) 12 25 H unknown) (unknown) (no (unknown) (unknown) Respiratory Rate (units (unknown) date) 13 26 H unknown) (unknown) (no (unknown) (unknown) Respiratory Rate (units (unknown) date) 16 20 unknown) (unknown) (no (unknown) (unknown) Respiratory Rate (units (unknown) date) 17 26 H unknown) (unknown) (no (unknown) (unknown) Respiratory Rate (units (unknown) date) 17 unknown) (unknown) (no (unknown) (unknown) Respiratory Rate (units (unknown) date) 18 32 H unknown) (unknown) (no (unknown) (unknown) Respiratory Rate (units (unknown) date) 18 unknown) (unknown) (no (unknown) (unknown) Respiratory Rate (units (unknown) date) 19 18 unknown) (unknown) (no (unknown) (unknown) Respiratory Rate (units (unknown) date) 19 34 H 39 H unknown) (unknown) (no (unknown) (unknown) Respiratory Rate (units (unknown) date) 19 unknown) (unknown) (no (unknown) (unknown) Respiratory Rate (units (unknown) date) 20 unknown) (unknown) (no (unknown) (unknown) Respiratory Rate (units (unknown) date) 22 20 unknown) (unknown) (no (unknown) (unknown) Respiratory Rate (units (unknown) date) 23 17 16 unknown) (unknown) (no (unknown) (unknown) Respiratory Rate (units (unknown) date) 23 18 unknown) (unknown) (no (unknown) (unknown) Respiratory Rate (units (unknown) date) 24 19 unknown) (unknown) (no (unknown) (unknown) Respiratory Rate (units (unknown) date) 24 23 unknown) (unknown) (no (unknown) (unknown) Respiratory Rate (units (unknown) date) 27 H unknown) (unknown) (no (unknown) (unknown) Respiratory Rate (units (unknown) date) 29 H unknown) (unknown) (no (unknown) (unknown) Respiratory Rate (units (unknown) date) 30 H 24 unknown) (unknown) (no (unknown) (unknown) Respiratory Rate (units (unknown) date) unknown) (unknown) (no (unknown) (unknown) SARS-CoV-2 (PCR) (units (unknown) date) Negative unknown) (unknown) (no (unknown) (unknown) SARS-CoV-2 (PCR) (units (unknown) date) unknown) (unknown) (no (unknown) (unknown) Safety + (units (unkno wn) date) Behavioral: unknown) (unknown) (no (unknown) (unknown) Signed By: (units (unk nown) date) unknown) (unknown) (no (unknown) (unknown) Smoking Status (units (unknown) date) Smoker, status unknown) unknown (unknown) (no (unknown) (unknown) Sodium 135 L (units (u nknown) date) unknown) (unknown) (no (unknown) (unknown) Sodium (units (unkno wn) date) unknown) (unknown) (no (unknown) (unknown) Substance Use (units ( unknown) date) Type does not use unknown) (unknown) (no (unknown) (unknown) Temperature 98.1 (units (unknown) date) F unknown) (unknown) (no (unknown) (unknown) Temperature (units (un known) date) unknown) (unknown) (no (unknown) (unknown) Time Patient (units (u nknown) date) Seen: 15:35 unknown) (unknown) (no (unknown) (unknown) Time Spent With (units (unknown) date) Patient unknown) (unknown) (no (unknown) (unknown) Tobacco + (units (unkn own) date) Substance use: unknown) (unknown) (no (unknown) (unknown) Total Bilirubin (units (unknown) date) 2.1 H unknown) (unknown) (no (unknown) (unknown) Total Bilirubin (units (unknown) date) unknown) (unknown) (no (unknown) (unknown) Total Creatine (units (unknown) date) Kinase 53 L unknown) (unknown) (no (unknown) (unknown) Total Creatine (units (unknown) date) Kinase unknown) (unknown) (no (unknown) (unknown) Total Protein (units ( unknown) date) 5.8 L unknown) (unknown) (no (unknown) (unknown) Total Protein (units ( unknown) date) unknown) (unknown) (no (unknown) (unknown) Troponin I < (units (u nknown) date) 0.012 unknown) (unknown) (no (unknown) (unknown) Troponin I (units (unk nown) date) unknown) (unknown) (no (unknown) (unknown) Upon admit BP (units (u nknown) date) 149/78, unknown) tachycardic heart rate 154, tachypneic R 29, O2 saturation (unknown) (no (unknown) (unknown) Ur Bilirubin (units (u nknown) date) Confirm Positive unknown) H (unknown) (no (unknown) (unknown) Ur Bilirubin (units (u nknown) date) Confirm unknown) (unknown) (no (unknown) (unknown) Ur Culture (units (unk nown) date) Indicated? unknown) Specimen cultured (unknown) (no (unknown) (unknown) Ur Culture (units (unk nown) date) Indicated? unknown) (unknown) (no (unknown) (unknown) Ur Leukocyte (units (u nknown) date) Esterase Trace H unknown) (unknown) (no (unknown) (unknown) Ur Leukocyte (units (u nknown) date) Esterase unknown) (unknown) (no (unknown) (unknown) Ur Specific (units (un known) date) [place] 1.020 unknown) (unknown) (no (unknown) (unknown) Ur Specific (units (un known) date) [place] unknown) (unknown) (no (unknown) (unknown) Ur Squamous (units (un known) date) Epith Cells 1-5 unknown) /hpf (unknown) (no (unknown) (unknown) Ur Squamous (units (un known) date) Epith Cells unknown) (unknown) (no (unknown) (unknown) Urine Appearance (units (unknown) date) Cloudy unknown) (unknown) (no (unknown) (unknown) Urine Appearance (units (unknown) date) unknown) (unknown) (no (unknown) (unknown) Urine Bacteria (units (unknown) date) None seen unknown) (unknown) (no (unknown) (unknown) Urine Bacteria (units (unknown) date) unknown) (unknown) (no (unknown) (unknown) Urine Bilirubin (units (unknown) date) 3+ H unknown) (unknown) (no (unknown) (unknown) Urine Bilirubin (units (unknown) date) unknown) (unknown) (no (unknown) (unknown) Urine Color (units (un known) date) Brown unknown) (unknown) (no (unknown) (unknown) Urine Color (units (un known) date) unknown) (unknown) (no (unknown) (unknown) Urine Glucose (units ( unknown) date) (UA) Negative unknown) (unknown) (no (unknown) (unknown) Urine Glucose (units ( unknown) date) (UA) unknown) (unknown) (no (unknown) (unknown) Urine Ketones 1+ (units (unknown) date) H unknown) (unknown) (no (unknown) (unknown) Urine Ketones (units ( unknown) date) unknown) (unknown) (no (unknown) (unknown) Urine Nitrate (units ( unknown) date) Positive H unknown) (unknown) (no (unknown) (unknown) Urine Nitrate (units ( unknown) date) unknown) (unknown) (no (unknown) (unknown) Urine Occult (units (u nknown) date) Blood unknown) Trace-intact (unknown) (no (unknown) (unknown) Urine Occult (units (u nknown) date) Blood unknown) (unknown) (no (unknown) (unknown) Urine Protein 1+ (units (unknown) date) H unknown) (unknown) (no (unknown) (unknown) Urine Protein (units ( unknown) date) unknown) (unknown) (no (unknown) (unknown) Urine RBC (units (unkn own) date) 10-30/hpf H unknown) (unknown) (no (unknown) (unknown) Urine RBC (units (unkn own) date) unknown) (unknown) (no (unknown) (unknown) Urine (units (unkno wn) date) Urobilinogen 1.0 unknown) (unknown) (no (unknown) (unknown) Urine (units (unkno wn) date) Urobilinogen unknown) (unknown) (no (unknown) (unknown) Urine WBC (units (unkn own) date) 1-5/hpf unknown) (unknown) (no (unknown) (unknown) Urine WBC (units (unkn own) date) unknown) (unknown) (no (unknown) (unknown) Urine pH 6.5 (units (u nknown) date) unknown) (unknown) (no (unknown) (unknown) Urine pH (units (unkno wn) date) unknown) (unknown) (no (unknown) (unknown) Vital Signs (units (un known) date) unknown) (unknown) (no (unknown) (unknown) WBC 9.6 (units (unkno wn) date) unknown) (unknown) (no (unknown) (unknown) WBC (units (unkno wn) date) unknown) (unknown) (no (unknown) (unknown) [Embedded Image (units (unknown) date) Not Available] unknown) (unknown) (no (unknown) (unknown) [From Prevnar] (units (unknown) date) and feet x unknown) (unknown) (no (unknown) (unknown) abnormal. COVID, (units (unknown) date) influenza a/B/RSV unknown) negative. Head CT negative. CXR ?Possible (unknown) (no (unknown) (unknown) after. (units (unkno wn) date) unknown) (unknown) (no (unknown) (unknown) alcohol intake (units (unknown) date) frequency a few unknown) times a month (unknown) (no (unknown) (unknown) conjugate to of (units (unknown) date) hands unknown) (unknown) (no (unknown) (unknown) coordination (units (u nknown) date) issues, and unknown) concerns for neoplastic syndrome with a recent 30 lb (unknown) (no (unknown) (unknown) due to his (units (unk nown) date) significant unknown) presentation of cachexia, weakness, malaise balance (unknown) (no (unknown) (unknown) dysuria, (units (unkno wn) date) frequency, unknown) urgency, hematuria, bowel changes, constipation, (unknown) (no (unknown) (unknown) falls, head (units (un known) date) injury, LOC, unknown) fever, body aches, chills, cough, recent exposure to (unknown) (no (unknown) (unknown) greater than (units (u nknown) date) left pulmonary unknown) effusion (unknown) (no (unknown) (unknown) illness, (units (unkno wn) date) abdominal pain, unknown) nausea, vomiting, urinary incontinence/rete ntion, (unknown) (no (unknown) (unknown) incontinence, (units ( unknown) date) melena, rashes, unknown) recent changes to medication, illness, injury, or (unknown) (no (unknown) (unknown) infiltrates (units (un known) date) versus unknown) inflammatory pulmonary opacities mild to moderate right (unknown) (no (unknown) (unknown) into the ED by (units (unknown) date) his . Patient unknown) demonstrated escalating tachycardia with heart (unknown) (no (unknown) (unknown) mild right and (units (unknown) date) retrocardiac unknown) opacities Chest CT demonstrated bibasilar (unknown) (no (unknown) (unknown) negative, BNP (units ( unknown) date) 1430. 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 [place] cardiology's office (unknown) (no (unknown) (unknown) pneumococcal (units (u nknown) date) 7-valent AdvReac unknown) Intermediate swelling Verified 06/16/22 12:46 (unknown) (no (unknown) (unknown) rates 111-154, (units (unknown) date) and tachypneic unknown) respiratory rate in the 20s. (unknown) (no (unknown) (unknown) today; this time (units (unknown) date) is exclusive of unknown) procedural time. (unknown) (no (unknown) (unknown) trauma. (units (unkno wn) date) unknown) (unknown) (no (unknown) (unknown) vision, (units (unkno wn) date) difficulty unknown) swallowing, speech impairment, numbness, tingling, recent (unknown) (no (unknown) (unknown) weight loss, and (units (unknown) date) night sweats with unknown) a shuffling gait x6 weeks. He was brought Result panel 206 (unknown) (no (unknown) (unknown) (no value) (units (unk nown) date) unknown) (unknown) (no (unknown) (unknown) [id number] (units (unkno wn) date) unknown) (unknown) (no (unknown) (unknown) 06/16/22 (units (unkno wn) date) unknown) (unknown) (no (unknown) (unknown) 1. Multiple (units (un known) date) ill-defined unknown) hypoattenuating mass lesions throughout the liver. The (unknown) (no (unknown) (unknown) [address] (units (unknown) date) unknown) (unknown) (no (unknown) (unknown) 2. Numerous small (units (unknown) date) hypoattenuating unknown) lesions throughout the spleen are also (unknown) (no (unknown) (unknown) ABDOMEN: (units (unkno wn) date) unknown) (unknown) (no (unknown) (unknown) Abdominal Nodes: (units (unknown) date) No retroperitoneal unknown) or mesenteric adenopathy by size criteria. (unknown) (no (unknown) (unknown) Accession Number: (units (unknown) date) [id number] unknown) (unknown) (no (unknown) (unknown) Adrenal Glands: (units (unknown) date) No adrenal unknown) nodules. (unknown) (no (unknown) (unknown) After the (units (unkn own) date) administration of unknown) IV contrast, axial sections were acquired from the (unknown) (no (unknown) (unknown) Age/Sex: 86 / M (units (unknown) date) Date of Service: unknown) (unknown) (no (unknown) (unknown) [place], [place] (units ( unknown) date) [id number] unknown) (unknown) (no (unknown) (unknown) Approved by: (units (u nknown) date) Donovan Hadley unknown) Azar on 06/16/2022 at 23:52 (unknown) (no (unknown) (unknown) Biliary ducts: No (units (unknown) date) biliary ductal unknown) dilatation. (unknown) (no (unknown) (unknown) Bladder: (units (unkno wn) date) Unremarkable. unknown) (unknown) (no (unknown) (unknown) Bones: There is (units (unknown) date) heterogeneous unknown) appearance of the osseous structures in the (unknown) (no (unknown) (unknown) COMPARISON: None. (units (unknown) date) unknown) (unknown) (no (unknown) (unknown) CT Scan Report (units (unknown) date) unknown) (unknown) (no (unknown) (unknown) : 1935 (units (unknown) date) Acct:[id number] unknown) (unknown) (no (unknown) (unknown) Dictated by: (units (u nknown) date) Donovan Hadley unknown) Azar on 06/16/2022 at 23:44 (unknown) (no (unknown) (unknown) FINDINGS: (units (unkn own) date) unknown) (unknown) (no (unknown) (unknown) Gallbladder: The (units (unknown) date) gallbladder is unknown) partially distended with mild wall thickening. (unknown) (no (unknown) (unknown) Heart: Heart is (units (unknown) date) normal in size. unknown) (unknown) (no (unknown) (unknown) IMPRESSION: (units (un known) date) unknown) (unknown) (no (unknown) (unknown) INDICATIONS: (units (u nknown) date) Evaluate choli unknown) liver, transaminitis/seps is (unknown) (no (unknown) (unknown) Image quality: (units (unknown) date) Excellent. unknown) (unknown) (no (unknown) (unknown) [facility] (units (unknown) date) unknown) (unknown) (no (unknown) (unknown) Kidneys and (units (un known) date) Ureters: No unknown) hydronephrosis. There are bilateral renal cysts. (unknown) (no (unknown) (unknown) Liver: There is (units (unknown) date) heterogeneous unknown) enhancement of the liver with numerous ill (unknown) (no (unknown) (unknown) Loc: AC 206-1 (units ( unknown) date) unknown) (unknown) (no (unknown) (unknown) Lung bases: There (units (unknown) date) are bilateral unknown) pleural effusions, small to moderate on the (unknown) (no (unknown) (unknown) Miscellaneous: No (units (unknown) date) inguinal hernias unknown) are seen. (unknown) (no (unknown) (unknown) No free (units (unkno wn) date) unknown) (unknown) (no (unknown) (unknown) No (units (unkno wn) date) unknown) (unknown) (no (unknown) (unknown) Ordering (units (unkno wn) date) Provider: unknown) Hawa Michael-BC (unknown) (no (unknown) (unknown) PELVIS: (units (unkno wn) date) unknown) (unknown) (no (unknown) (unknown) PROCEDURE: CT (units ( unknown) date) ABDOMEN PELVIS W unknown) CON (unknown) (no (unknown) (unknown) Pancreas: (units (unkn own) date) Unremarkable. unknown) (unknown) (no (unknown) (unknown) Patient: (units (unkno wn) date) Yoseph Cardoso G unknown) MR#: [id number] (unknown) (no (unknown) (unknown) Pelvic Nodes: No (units (unknown) date) enlarged lymph unknown) nodes. (unknown) (no (unknown) (unknown) Pelvic Organs: (units (unknown) date) Unremarkable. unknown) (unknown) (no (unknown) (unknown) Peritoneum: There (units (unknown) date) is a small to unknown) moderate amount of free fluid in the pelvis. (unknown) (no (unknown) (unknown) Procedure: CT (units ( unknown) date) abdomen pelvis w unknown) con (unknown) (no (unknown) (unknown) Signed (units (unkno wn) date) unknown) (unknown) (no (unknown) (unknown) Spleen: Normal in (units (unknown) date) size. Numerous unknown) small hypoattenuating lesions are (unknown) (no (unknown) (unknown) Stomach and (units (un known) date) Bowel: Stomach, unknown) small bowel loops, and colon are normal in caliber (unknown) (no (unknown) (unknown) TECHNIQUE: (units (unk nown) date) unknown) (unknown) (no (unknown) (unknown) Ventral Wall: No (units (unknown) date) hernia. unknown) (unknown) (no (unknown) (unknown) Vessels: Aorta (units (unknown) date) and inferior vena unknown) cava are normal in size. (unknown) (no (unknown) (unknown) Visualized (units (unk nown) date) unknown) (unknown) (no (unknown) (unknown) air. (units (unkno wn) date) unknown) (unknown) (no (unknown) (unknown) and wall (units (unkno wn) date) unknown) (unknown) (no (unknown) (unknown) and/or kV (units (unkn own) date) according to unknown) patient size. (unknown) (no (unknown) (unknown) are nonspecific (units (unknown) date) and the unknown) differential includes metastatic disease are as well as (unknown) (no (unknown) (unknown) as micro (units (unkno wn) date) abscesses. unknown) Correlation is recommended clinically and if indicated (unknown) (no (unknown) (unknown) calcified (units (unkn own) date) gallstones. unknown) (unknown) (no (unknown) (unknown) confluent (units (unkn own) date) unknown) (unknown) (no (unknown) (unknown) consolidation (units ( unknown) date) within the left unknown) lower lobe.. (unknown) (no (unknown) (unknown) defined (units (unkno wn) date) unknown) (unknown) (no (unknown) (unknown) demonstrated (units (u nknown) date) unknown) (unknown) (no (unknown) (unknown) diverticulosis (units (unknown) date) without acute unknown) diverticulitis. (unknown) (no (unknown) (unknown) dose reduction, (units (unknown) date) the following was unknown) used: automated exposure control, adjustment (unknown) (no (unknown) (unknown) etiologies such (units (unknown) date) unknown) (unknown) (no (unknown) (unknown) evaluation may be (units (unknown) date) obtained with MRI. unknown) (unknown) (no (unknown) (unknown) findings (units (unkno wn) date) unknown) (unknown) (no (unknown) (unknown) further (units (unkno wn) date) unknown) (unknown) (no (unknown) (unknown) hypoattenuating (units (unknown) date) mass lesions unknown) including an ill-defined posterior hypoattenuating (unknown) (no (unknown) (unknown) image 15. (units (unkn own) date) unknown) (unknown) (no (unknown) (unknown) image 25. (units (unkn own) date) unknown) (unknown) (no (unknown) (unknown) indistinct areas (units (unknown) date) of hypodensity. unknown) The findings likely reflect osteopenia. 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 (unknown) (no (unknown) (unknown) nonspecific and (units (unknown) date) unknown) (unknown) (no (unknown) (unknown) of mA (units (unkno wn) date) unknown) (unknown) (no (unknown) (unknown) osseous (units (unkno wn) date) structures unknown) demonstrate no suspicious focal lesions. (unknown) (no (unknown) (unknown) pelvis with (units (un known) date) unknown) (unknown) (no (unknown) (unknown) radiation (units (unkn own) date) unknown) (unknown) (no (unknown) (unknown) right and (units (unkn own) date) unknown) (unknown) (no (unknown) (unknown) series 2, (units (unkn own) date) unknown) (unknown) (no (unknown) (unknown) small on the (units (u nknown) date) left, with unknown) associated compressive atelectasis. There is also (unknown) (no (unknown) (unknown) the differential (units (unknown) date) also includes unknown) neoplastic processes as well as infectious (unknown) (no (unknown) (unknown) the right hepatic (units (unknown) date) lobe measuring up unknown) to approximately 5.6 x 4.4 cm on series 2, (unknown) (no (unknown) (unknown) thickness. No (units ( unknown) date) pericecal unknown) inflammatory changes to suggest appendicitis. There (unknown) (no (unknown) (unknown) throughout the (units (unknown) date) spleen with the unknown) largest measuring up to approximately 1.2 cm on (unknown) (no (unknown) (unknown) to the pubic (units (u nknown) date) symphysis. Coronal unknown) and sagittal reformats were performed. For Result panel 207 (unknown) (no (unknown) (unknown) (no value) (units (unk nown) date) unknown) (unknown) (no (unknown) (unknown) (past 8 hours): (units (unknown) date) unknown) (unknown) (no (unknown) (unknown) [id number] (units (unkno wn) date) unknown) (unknown) (no (unknown) (unknown) 06/16/22 (units (unkno wn) date) 06/16/22 06/16/22 unknown) (unknown) (no (unknown) (unknown) 06/16/22 (units (unkno wn) date) 06/16/22 unknown) (unknown) (no (unknown) (unknown) 06/16/22 12:35 (units (unknown) date) unknown) (unknown) (no (unknown) (unknown) 06/16/22 (units (unkno wn) date) unknown) (unknown) (no (unknown) (unknown) 12:35 12:35 (units (un known) date) 12:35 unknown) (unknown) (no (unknown) (unknown) 13:15 06/16/22 (units (unknown) date) unknown) (unknown) (no (unknown) (unknown) 13:30 (units (unkno wn) date) unknown) (unknown) (no (unknown) (unknown) 13:45 06/16/22 (units (unknown) date) unknown) (unknown) (no (unknown) (unknown) 13:46 06/16/22 (units (unknown) date) unknown) (unknown) (no (unknown) (unknown) 13:46 (units (unkno wn) date) unknown) (unknown) (no (unknown) (unknown) 14:00 06/16/22 (units (unknown) date) unknown) (unknown) (no (unknown) (unknown) 14:24 (units (unkno wn) date) unknown) (unknown) (no (unknown) (unknown) 14:30 06/16/22 (units (unknown) date) unknown) (unknown) (no (unknown) (unknown) 14:45 06/16/22 (units (unknown) date) unknown) (unknown) (no (unknown) (unknown) 15:00 (units (unkno wn) date) unknown) (unknown) (no (unknown) (unknown) 15:15 06/16/22 (units (unknown) date) unknown) (unknown) (no (unknown) (unknown) 15:30 06/16/22 (units (unknown) date) unknown) (unknown) (no (unknown) (unknown) 15:30 17:55 (units (un known) date) unknown) (unknown) (no (unknown) (unknown) 15:34 06/16/22 (units (unknown) date) unknown) (unknown) (no (unknown) (unknown) 15:34 (units (unkno wn) date) unknown) (unknown) (no (unknown) (unknown) 15:45 06/16/22 (units (unknown) date) unknown) (unknown) (no (unknown) (unknown) 15:45 (units (unkno wn) date) unknown) (unknown) (no (unknown) (unknown) 16:00 06/16/22 (units (unknown) date) unknown) (unknown) (no (unknown) (unknown) 16:15 06/16/22 (units (unknown) date) unknown) (unknown) (no (unknown) (unknown) 16:15 (units (unkno wn) date) unknown) (unknown) (no (unknown) (unknown) 16:30 06/16/22 (units (unknown) date) unknown) (unknown) (no (unknown) (unknown) 16:31 06/16/22 (units (unknown) date) unknown) (unknown) (no (unknown) (unknown) 16:31 (units (unkno wn) date) unknown) (unknown) (no (unknown) (unknown) 16:45 06/16/22 (units (unknown) date) unknown) (unknown) (no (unknown) (unknown) 17:00 06/16/22 (units (unknown) date) unknown) (unknown) (no (unknown) (unknown) 17:00 (units (unkno wn) date) unknown) (unknown) (no (unknown) (unknown) 17:15 06/16/22 (units (unknown) date) unknown) (unknown) (no (unknown) (unknown) 17:15 (units (unkno wn) date) unknown) (unknown) (no (unknown) (unknown) 17:30 06/16/22 (units (unknown) date) unknown) (unknown) (no (unknown) (unknown) 17:45 (units (unkno wn) date) unknown) (unknown) (no (unknown) (unknown) 17:46 06/16/22 (units (unknown) date) unknown) (unknown) (no (unknown) (unknown) 17:59 (units (unkno wn) date) unknown) (unknown) (no (unknown) (unknown) 18:00 06/16/22 (units (unknown) date) unknown) (unknown) (no (unknown) (unknown) 18:01 06/16/22 (units (unknown) date) unknown) (unknown) (no (unknown) (unknown) 18:15 06/16/22 (units (unknown) date) unknown) (unknown) (no (unknown) (unknown) 18:15 (units (unkno wn) date) unknown) (unknown) (no (unknown) (unknown) 18:30 06/16/22 (units (unknown) date) unknown) (unknown) (no (unknown) (unknown) 18:30 (units (unkno wn) date) unknown) (unknown) (no (unknown) (unknown) 18:45 06/16/22 (units (unknown) date) unknown) (unknown) (no (unknown) (unknown) 19:00 06/16/22 (units (unknown) date) unknown) (unknown) (no (unknown) (unknown) 19:00 (units (unkno wn) date) unknown) (unknown) (no (unknown) (unknown) 19:15 06/16/22 (units (unknown) date) unknown) (unknown) (no (unknown) (unknown) 19:15 (units (unkno wn) date) unknown) (unknown) (no (unknown) (unknown) 19:30 06/16/22 (units (unknown) date) unknown) (unknown) (no (unknown) (unknown) 19:45 06/16/22 (units (unknown) date) unknown) (unknown) (no (unknown) (unknown) 19:45 (units (unkno wn) date) unknown) (unknown) (no (unknown) (unknown) 20:00 06/16/22 (units (unknown) date) unknown) (unknown) (no (unknown) (unknown) 20:00 (units (unkno wn) date) unknown) (unknown) (no (unknown) (unknown) 20:15 06/16/22 (units (unknown) date) unknown) (unknown) (no (unknown) (unknown) 20:30 06/16/22 (units (unknown) date) unknown) (unknown) (no (unknown) (unknown) 20:30 (units (unkno wn) date) unknown) (unknown) (no (unknown) (unknown) 20:45 06/16/22 (units (unknown) date) unknown) (unknown) (no (unknown) (unknown) 20:46 06/16/22 (units (unknown) date) unknown) (unknown) (no (unknown) (unknown) 20:46 (units (unkno wn) date) unknown) (unknown) (no (unknown) (unknown) 20:55 (units (unkno wn) date) unknown) (unknown) (no (unknown) (unknown) 34, glucose 146, (units (unknown) date) calcium 8.1, unknown) magnesium 2.6, phosphorus 4.1, bili 2.1, AST 61, (unknown) (no (unknown) (unknown) 4 mos (units (unkno wn) date) unknown) (unknown) (no (unknown) (unknown) 4.3, repeat 2.7, (units (unknown) date) procalcitonin unknown) 3.27, PT 17.6, INR 1.5, PTT 38. Sodium 135, BUN (unknown) (no (unknown) (unknown) 98% on room air. (units (unknown) date) Patient has no unknown) WBC, but left shiftneut 8200, initial lactate (unknown) (no (unknown) (unknown) ALT 63 H (units (unkno wn) date) unknown) (unknown) (no (unknown) (unknown) ALT 63, alk-phos (units (unknown) date) 428, total unknown) protein 5.8, albumin 3.1, CK 53, initial troponin (unknown) (no (unknown) (unknown) ALT (units (unkno wn) date) unknown) (unknown) (no (unknown) (unknown) APTT 38 H (units (unkn own) date) unknown) (unknown) (no (unknown) (unknown) APTT (units (unkno wn) date) unknown) (unknown) (no (unknown) (unknown) AST 61 H (units (unkno wn) date) unknown) (unknown) (no (unknown) (unknown) AST (units (unkno wn) date) unknown) (unknown) (no (unknown) (unknown) Age/Sex: 86 / M (units (unknown) date) unknown) (unknown) (no (unknown) (unknown) Albumin 3.1 L (units ( unknown) date) unknown) (unknown) (no (unknown) (unknown) Albumin (units (unkno wn) date) unknown) (unknown) (no (unknown) (unknown) Albumin/Globulin (units (unknown) date) Ratio 1.1 unknown) (unknown) (no (unknown) (unknown) Albumin/Globulin (units (unknown) date) Ratio unknown) (unknown) (no (unknown) (unknown) Alkaline (units (unkno wn) date) Phosphatase 428 H unknown) (unknown) (no (unknown) (unknown) Alkaline (units (unkno wn) date) Phosphatase unknown) (unknown) (no (unknown) (unknown) Allergies (units (unkn own) date) unknown) (unknown) (no (unknown) (unknown) Allergy/AdvReac (units (unknown) date) Type Severity unknown) Reaction Status Date / Time (unknown) (no (unknown) (unknown) Assessment + (units (u nknown) date) Plan unknown) (unknown) (no (unknown) (unknown) BUN 34 H (units (unkno wn) date) unknown) (unknown) (no (unknown) (unknown) BUN (units (unkno wn) date) unknown) (unknown) (no (unknown) (unknown) BUN/Creatinine (units (unknown) date) Ratio 34.3 H unknown) (unknown) (no (unknown) (unknown) BUN/Creatinine (units (unknown) date) Ratio unknown) (unknown) (no (unknown) (unknown) Baso # (Auto) (units ( unknown) date) 100 unknown) (unknown) (no (unknown) (unknown) Baso # (Auto) (units ( unknown) date) unknown) (unknown) (no (unknown) (unknown) Baso % (Auto) (units ( unknown) date) 0.8 unknown) (unknown) (no (unknown) (unknown) Baso % (Auto) (units ( unknown) date) unknown) (unknown) (no (unknown) (unknown) Blood Pressure (units (unknown) date) 141/57 H unknown) (unknown) (no (unknown) (unknown) Blood Pressure (units (unknown) date) 141/73 H unknown) (unknown) (no (unknown) (unknown) Blood Pressure (units (unknown) date) 142/65 H 156/70 H unknown) (unknown) (no (unknown) (unknown) Blood Pressure (units (unknown) date) 142/67 H unknown) (unknown) (no (unknown) (unknown) Blood Pressure (units (unknown) date) 143/67 H unknown) (unknown) (no (unknown) (unknown) Blood Pressure (units (unknown) date) 145/69 H unknown) (unknown) (no (unknown) (unknown) Blood Pressure (units (unknown) date) 146/69 H unknown) (unknown) (no (unknown) (unknown) Blood Pressure (units (unknown) date) 147/71 H 150/72 H unknown) (unknown) (no (unknown) (unknown) Blood Pressure (units (unknown) date) 149/68 H 130/59 L unknown) (unknown) (no (unknown) (unknown) Blood Pressure (units (unknown) date) 149/78 H 155/70 H unknown) (unknown) (no (unknown) (unknown) Blood Pressure (units (unknown) date) 150/73 H unknown) (unknown) (no (unknown) (unknown) Blood Pressure (units (unknown) date) 151/72 H unknown) (unknown) (no (unknown) (unknown) Blood Pressure (units (unknown) date) 154/73 H unknown) (unknown) (no (unknown) (unknown) Blood Pressure (units (unknown) date) 156/72 H 151/72 H unknown) (unknown) (no (unknown) (unknown) Blood Pressure (units (unknown) date) 162/114 H unknown) (unknown) (no (unknown) (unknown) Blood Pressure (units (unknown) date) 164/94 H 164/96 H unknown) (unknown) (no (unknown) (unknown) Blood Pressure (units (unknown) date) 179/74 H 179/94 H unknown) (unknown) (no (unknown) (unknown) Blood Pressure (units (unknown) date) 186/112 H 169/75 unknown) H (unknown) (no (unknown) (unknown) Blood Pressure (units (unknown) date) unknown) (unknown) (no (unknown) (unknown) CK-MB (CK-2) Rel (units (unknown) date) Index TNP unknown) (unknown) (no (unknown) (unknown) CK-MB (CK-2) Rel (units (unknown) date) Index unknown) (unknown) (no (unknown) (unknown) CK-MB (CK-2) TNP (units (unknown) date) unknown) (unknown) (no (unknown) (unknown) CK-MB (CK-2) (units (u nknown) date) unknown) (unknown) (no (unknown) (unknown) Calcium 8.1 L (units ( unknown) date) unknown) (unknown) (no (unknown) (unknown) Calcium (units (unkno wn) date) unknown) (unknown) (no (unknown) (unknown) Carbon Dioxide (units (unknown) date) 28 unknown) (unknown) (no (unknown) (unknown) Carbon Dioxide (units (unknown) date) unknown) (unknown) (no (unknown) (unknown) Chief complaint: (units (unknown) date) Pain near unknown) pacemaker (unknown) (no (unknown) (unknown) Chloride 99 (units (un known) date) unknown) (unknown) (no (unknown) (unknown) Chloride (units (unkno wn) date) unknown) (unknown) (no (unknown) (unknown) Creatinine 0.99 (units (unknown) date) unknown) (unknown) (no (unknown) (unknown) Creatinine (units (unk nown) date) unknown) (unknown) (no (unknown) (unknown) Critical Care (units ( unknown) date) time: unknown) (unknown) (no (unknown) (unknown) : 1935 (units (unknown) date) Acct:[id number] unknown) (unknown) (no (unknown) (unknown) Date Patient (units (u nknown) date) Seen: 06/16/22 unknown) (unknown) (no (unknown) (unknown) Date of Service: (units (unknown) date) 06/16/22 unknown) (unknown) (no (unknown) (unknown) Yoseph Cardoso is (units (unknown) date) a 86-year-old unknown) male with a history of atrial fibrillation, with (unknown) (no (unknown) (unknown) Environment (units (un known) date) unknown) (unknown) (no (unknown) (unknown) Eos # (Auto) 0 (units (unknown) date) unknown) (unknown) (no (unknown) (unknown) Eos # (Auto) (units (u nknown) date) unknown) (unknown) (no (unknown) (unknown) Eos % (Auto) 0.1 (units (unknown) date) L unknown) (unknown) (no (unknown) (unknown) Eos % (Auto) (units (u nknown) date) unknown) (unknown) (no (unknown) (unknown) Estimated GFR > (units (unknown) date) 60 unknown) (unknown) (no (unknown) (unknown) Estimated GFR (units ( unknown) date) unknown) (unknown) (no (unknown) (unknown) Exam (units (unkno wn) date) unknown) (unknown) (no (unknown) (unknown) Family + Social (units (unknown) date) History unknown) (unknown) (no (unknown) (unknown) Feels Safe in (units ( unknown) date) Current Yes unknown) (unknown) (no (unknown) (unknown) Fever, jaundice, (units (unknown) date) right upper unknown) quadrant pain? (unknown) (no (unknown) (unknown) Globulin 2.7 (units (u nknown) date) unknown) (unknown) (no (unknown) (unknown) Globulin (units (unkno wn) date) unknown) (unknown) (no (unknown) (unknown) Glucose 146 H (units ( unknown) date) unknown) (unknown) (no (unknown) (unknown) Glucose (units (unkno wn) date) unknown) (unknown) (no (unknown) (unknown) Hct 46.6 (units (unkno wn) date) unknown) (unknown) (no (unknown) (unknown) Hct (units (unkno wn) date) unknown) (unknown) (no (unknown) (unknown) Hgb 15.4 (units (unkno wn) date) unknown) (unknown) (no (unknown) (unknown) Hgb (units (unkno wn) date) unknown) (unknown) (no (unknown) (unknown) History + (units (unkn own) date) Physical Report unknown) (unknown) (no (unknown) (unknown) History of (units (unk nown) date) Present Illness unknown) (unknown) (no (unknown) (unknown) Home Medications (units (unknown) date) and Allergies unknown) (unknown) (no (unknown) (unknown) Home Medications (units (unknown) date) unknown) (unknown) (no (unknown) (unknown) I spent a total (units (unknown) date) of [] minutes of unknown) critical care time on this patient's care (unknown) (no (unknown) (unknown) INR 1.5 H (units (unkn own) date) unknown) (unknown) (no (unknown) (unknown) INR (units (unkno wn) date) unknown) (unknown) (no (unknown) (unknown) Influenza A (units (un known) date) (RT-PCR) Flu a unknown) negative (unknown) (no (unknown) (unknown) Influenza A (units (un known) date) (RT-PCR) unknown) (unknown) (no (unknown) (unknown) Influenza B (units (un known) date) (RT-PCR) Flu b unknown) negative (unknown) (no (unknown) (unknown) Influenza B (units (un known) date) (RT-PCR) unknown) (unknown) (no (unknown) (unknown) [facility] (units (unknown) date) [address] [place] [address] unknown) [place] [address] (unknown) (no (unknown) (unknown) Laboratory (units (unk nown) date) Results - last 24 unknown) hr (unknown) (no (unknown) (unknown) Labs (units (unkno wn) date) unknown) (unknown) (no (unknown) (unknown) Labs: (units (unkno wn) date) unknown) (unknown) (no (unknown) (unknown) Lactate 2.7 H (units ( unknown) date) unknown) (unknown) (no (unknown) (unknown) Lactate 4.3 H* (units (unknown) date) unknown) (unknown) (no (unknown) (unknown) Lactate (units (unkno wn) date) unknown) (unknown) (no (unknown) (unknown) Lipase 45 (units (unkn own) date) unknown) (unknown) (no (unknown) (unknown) Lipase (units (unkno wn) date) unknown) (unknown) (no (unknown) (unknown) Lymph # (Auto) (units (unknown) date) 400 L unknown) (unknown) (no (unknown) (unknown) Lymph # (Auto) (units (unknown) date) unknown) (unknown) (no (unknown) (unknown) Lymph % (Auto) (units (unknown) date) 4.6 L unknown) (unknown) (no (unknown) (unknown) Lymph % (Auto) (units (unknown) date) unknown) (unknown) (no (unknown) (unknown) MCH 30.4 (units (unkno wn) date) unknown) (unknown) (no (unknown) (unknown) MCH (units (unkno wn) date) unknown) (unknown) (no (unknown) (unknown) MCHC 33.0 (units (unkn own) date) unknown) (unknown) (no (unknown) (unknown) MCHC (units (unkno wn) date) unknown) (unknown) (no (unknown) (unknown) MCV 92.4 (units (unkno wn) date) unknown) (unknown) (no (unknown) (unknown) MCV (units (unkno wn) date) unknown) (unknown) (no (unknown) (unknown) Magnesium 2.6 H (units (unknown) date) unknown) (unknown) (no (unknown) (unknown) Magnesium (units (unkn own) date) unknown) (unknown) (no (unknown) (unknown) Medication (units (unk nown) date) Instructions unknown) Recorded Confirmed Type (unknown) (no (unknown) (unknown) Meds (units (unkno wn) date) unknown) (unknown) (no (unknown) (unknown) [place] # (Auto) (units ( unknown) date) 900 unknown) (unknown) (no (unknown) (unknown) [place] # (Auto) (units ( unknown) date) unknown) (unknown) (no (unknown) (unknown) [place] % (Auto) (units ( unknown) date) 9.4 unknown) (unknown) (no (unknown) (unknown) [place] % (Auto) (units ( unknown) date) unknown) (unknown) (no (unknown) (unknown) NT-Pro-B (units (unkno wn) date) Natriuret Pep unknown) 1430 H (unknown) (no (unknown) (unknown) NT-Pro-B (units (unkno wn) date) Natriuret Pep unknown) (unknown) (no (unknown) (unknown) Narrative: (units (unk nown) date) unknown) (unknown) (no (unknown) (unknown) Neut # (Auto) (units ( unknown) date) 8200 H unknown) (unknown) (no (unknown) (unknown) Neut # (Auto) (units ( unknown) date) unknown) (unknown) (no (unknown) (unknown) Neut % (Auto) (units ( unknown) date) 85.1 H unknown) (unknown) (no (unknown) (unknown) Neut % (Auto) (units ( unknown) date) unknown) (unknown) (no (unknown) (unknown) No Known Home (units ( unknown) date) Medications unknown) 12/20/20 12/20/20 History (unknown) (no (unknown) (unknown) Objective (units (unkn own) date) unknown) (unknown) (no (unknown) (unknown) On admit patient (units (unknown) date) denies chest unknown) pain, shortness in breath, headache, changes in (unknown) (no (unknown) (unknown) Oxygen Delivery (units (unknown) date) Method Room Air unknown) (unknown) (no (unknown) (unknown) Oxygen Delivery (units (unknown) date) Method unknown) (unknown) (no (unknown) (unknown) PT 17.6 H (units (unkn own) date) unknown) (unknown) (no (unknown) (unknown) PT (units (unkno wn) date) unknown) (unknown) (no (unknown) (unknown) Patient History (units (unknown) date) unknown) (unknown) (no (unknown) (unknown) Patient: (units (unkno wn) date) Yoseph Cardoso unknown) MR#: [id number] (unknown) (no (unknown) (unknown) Phosphorus 4.1 H (units (unknown) date) unknown) (unknown) (no (unknown) (unknown) Phosphorus (units (unk nown) date) unknown) (unknown) (no (unknown) (unknown) Plt Count 222 (units ( unknown) date) unknown) (unknown) (no (unknown) (unknown) Plt Count (units (unkn own) date) unknown) (unknown) (no (unknown) (unknown) Potassium 4.8 (units ( unknown) date) unknown) (unknown) (no (unknown) (unknown) Potassium (units (unkn own) date) unknown) (unknown) (no (unknown) (unknown) Procalcitonin (units ( unknown) date) 3.27 H unknown) (unknown) (no (unknown) (unknown) Procalcitonin (units ( unknown) date) unknown) (unknown) (no (unknown) (unknown) Provider: (units (unkn own) date) Hawa Michael unknown) 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 (unknown) (no (unknown) (unknown) Pulse Oximetry (units (unknown) date) 93 100 unknown) (unknown) (no (unknown) (unknown) Pulse Oximetry (units (unknown) date) 94 96 unknown) (unknown) (no (unknown) (unknown) Pulse Oximetry (units (unknown) date) 95 unknown) (unknown) (no (unknown) (unknown) Pulse Oximetry (units (unknown) date) 96 91 unknown) (unknown) (no (unknown) (unknown) Pulse Oximetry (units (unknown) date) 96 99 unknown) (unknown) (no (unknown) (unknown) Pulse Oximetry (units (unknown) date) 96 unknown) (unknown) (no (unknown) (unknown) Pulse Oximetry (units (unknown) date) 97 96 97 unknown) (unknown) (no (unknown) (unknown) Pulse Oximetry (units (unknown) date) 97 97 98 unknown) (unknown) (no (unknown) (unknown) Pulse Oximetry (units (unknown) date) 97 97 unknown) (unknown) (no (unknown) (unknown) Pulse Oximetry (units (unknown) date) 97 unknown) (unknown) (no (unknown) (unknown) Pulse Oximetry (units (unknown) date) 98 97 unknown) (unknown) (no (unknown) (unknown) Pulse Oximetry (units (unknown) date) 98 unknown) (unknown) (no (unknown) (unknown) Pulse Oximetry (units (unknown) date) unknown) (unknown) (no (unknown) (unknown) Pulse Rate 111 H (units (unknown) date) unknown) (unknown) (no (unknown) (unknown) Pulse Rate 114 H (units (unknown) date) 118 H unknown) (unknown) (no (unknown) (unknown) Pulse Rate 154 H (units (unknown) date) unknown) (unknown) (no (unknown) (unknown) Pulse Rate 72 66 (units (unknown) date) unknown) (unknown) (no (unknown) (unknown) Pulse Rate 72 71 (units (unknown) date) unknown) (unknown) (no (unknown) (unknown) Pulse Rate 72 74 (units (unknown) date) unknown) (unknown) (no (unknown) (unknown) Pulse Rate 72 (units ( unknown) date) unknown) (unknown) (no (unknown) (unknown) Pulse Rate 73 74 (units (unknown) date) unknown) (unknown) (no (unknown) (unknown) Pulse Rate 73 87 (units (unknown) date) 98 H unknown) (unknown) (no (unknown) (unknown) Pulse Rate 73 (units ( unknown) date) unknown) (unknown) (no (unknown) (unknown) Pulse Rate 74 (units ( unknown) date) 104 H 106 H unknown) (unknown) (no (unknown) (unknown) Pulse Rate 75 (units ( unknown) date) 116 H unknown) (unknown) (no (unknown) (unknown) Pulse Rate 75 70 (units (unknown) date) unknown) (unknown) (no (unknown) (unknown) Pulse Rate 75 74 (units (unknown) date) 74 unknown) (unknown) (no (unknown) (unknown) Pulse Rate 75 (units ( unknown) date) unknown) (unknown) (no (unknown) (unknown) Pulse Rate 76 (units ( unknown) date) unknown) (unknown) (no (unknown) (unknown) Pulse Rate 78 75 (units (unknown) date) unknown) (unknown) (no (unknown) (unknown) Pulse Rate 84 77 (units (unknown) date) unknown) (unknown) (no (unknown) (unknown) Pulse Rate 86 72 (units (unknown) date) unknown) (unknown) (no (unknown) (unknown) Pulse Rate 98 H (units (unknown) date) unknown) (unknown) (no (unknown) (unknown) RBC 5.05 (units (unkno wn) date) unknown) (unknown) (no (unknown) (unknown) RBC (units (unkno wn) date) unknown) (unknown) (no (unknown) (unknown) RDW 14.4 (units (unkno wn) date) unknown) (unknown) (no (unknown) (unknown) RDW (units (unkno wn) date) unknown) (unknown) (no (unknown) (unknown) RSV (PCR) (units (unkn own) date) Negative unknown) (unknown) (no (unknown) (unknown) RSV (PCR) (units (unkn own) date) unknown) (unknown) (no (unknown) (unknown) Respiratory Rate (units (unknown) date) 12 25 H unknown) (unknown) (no (unknown) (unknown) Respiratory Rate (units (unknown) date) 13 26 H unknown) (unknown) (no (unknown) (unknown) Respiratory Rate (units (unknown) date) 16 20 unknown) (unknown) (no (unknown) (unknown) Respiratory Rate (units (unknown) date) 17 26 H unknown) (unknown) (no (unknown) (unknown) Respiratory Rate (units (unknown) date) 17 unknown) (unknown) (no (unknown) (unknown) Respiratory Rate (units (unknown) date) 18 32 H unknown) (unknown) (no (unknown) (unknown) Respiratory Rate (units (unknown) date) 18 unknown) (unknown) (no (unknown) (unknown) Respiratory Rate (units (unknown) date) 19 18 unknown) (unknown) (no (unknown) (unknown) Respiratory Rate (units (unknown) date) 19 34 H 39 H unknown) (unknown) (no (unknown) (unknown) Respiratory Rate (units (unknown) date) 19 unknown) (unknown) (no (unknown) (unknown) Respiratory Rate (units (unknown) date) 20 unknown) (unknown) (no (unknown) (unknown) Respiratory Rate (units (unknown) date) 22 20 unknown) (unknown) (no (unknown) (unknown) Respiratory Rate (units (unknown) date) 23 17 16 unknown) (unknown) (no (unknown) (unknown) Respiratory Rate (units (unknown) date) 23 18 unknown) (unknown) (no (unknown) (unknown) Respiratory Rate (units (unknown) date) 24 19 unknown) (unknown) (no (unknown) (unknown) Respiratory Rate (units (unknown) date) 24 23 unknown) (unknown) (no (unknown) (unknown) Respiratory Rate (units (unknown) date) 27 H unknown) (unknown) (no (unknown) (unknown) Respiratory Rate (units (unknown) date) 29 H unknown) (unknown) (no (unknown) (unknown) Respiratory Rate (units (unknown) date) 30 H 24 unknown) (unknown) (no (unknown) (unknown) Respiratory Rate (units (unknown) date) unknown) (unknown) (no (unknown) (unknown) SARS-CoV-2 (PCR) (units (unknown) date) Negative unknown) (unknown) (no (unknown) (unknown) SARS-CoV-2 (PCR) (units (unknown) date) unknown) (unknown) (no (unknown) (unknown) Safety + (units (unkno wn) date) Behavioral: unknown) (unknown) (no (unknown) (unknown) Signed By: (units (unk nown) date) unknown) (unknown) (no (unknown) (unknown) Smoking Status (units (unknown) date) Smoker, status unknown) unknown (unknown) (no (unknown) (unknown) Sodium 135 L (units (u nknown) date) unknown) (unknown) (no (unknown) (unknown) Sodium (units (unkno wn) date) unknown) (unknown) (no (unknown) (unknown) Substance Use (units ( unknown) date) Type does not use unknown) (unknown) (no (unknown) (unknown) Temperature 98.1 (units (unknown) date) F unknown) (unknown) (no (unknown) (unknown) Temperature (units (un known) date) unknown) (unknown) (no (unknown) (unknown) Time Patient (units (u nknown) date) Seen: 15:35 unknown) (unknown) (no (unknown) (unknown) Time Spent With (units (unknown) date) Patient unknown) (unknown) (no (unknown) (unknown) Tobacco + (units (unkn own) date) Substance use: unknown) (unknown) (no (unknown) (unknown) Total Bilirubin (units (unknown) date) 2.1 H unknown) (unknown) (no (unknown) (unknown) Total Bilirubin (units (unknown) date) unknown) (unknown) (no (unknown) (unknown) Total Creatine (units (unknown) date) Kinase 53 L unknown) (unknown) (no (unknown) (unknown) Total Creatine (units (unknown) date) Kinase unknown) (unknown) (no (unknown) (unknown) Total Protein (units ( unknown) date) 5.8 L unknown) (unknown) (no (unknown) (unknown) Total Protein (units ( unknown) date) unknown) (unknown) (no (unknown) (unknown) Troponin I < (units (u nknown) date) 0.012 unknown) (unknown) (no (unknown) (unknown) Troponin I (units (unk nown) date) unknown) (unknown) (no (unknown) (unknown) Upon admit BP (units (u nknown) date) 149/78, unknown) tachycardic heart rate 154, tachypneic R 29, O2 saturation (unknown) (no (unknown) (unknown) Ur Bilirubin (units (u nknown) date) Confirm Positive unknown) H (unknown) (no (unknown) (unknown) Ur Bilirubin (units (u nknown) date) Confirm unknown) (unknown) (no (unknown) (unknown) Ur Culture (units (unk nown) date) Indicated? unknown) Specimen cultured (unknown) (no (unknown) (unknown) Ur Culture (units (unk nown) date) Indicated? unknown) (unknown) (no (unknown) (unknown) Ur Leukocyte (units (u nknown) date) Esterase Trace H unknown) (unknown) (no (unknown) (unknown) Ur Leukocyte (units (u nknown) date) Esterase unknown) (unknown) (no (unknown) (unknown) Ur Specific (units (un known) date) [place] 1.020 unknown) (unknown) (no (unknown) (unknown) Ur Specific (units (un known) date) [place] unknown) (unknown) (no (unknown) (unknown) Ur Squamous (units (un known) date) Epith Cells 1-5 unknown) /hpf (unknown) (no (unknown) (unknown) Ur Squamous (units (un known) date) Epith Cells unknown) (unknown) (no (unknown) (unknown) Urine Appearance (units (unknown) date) Cloudy unknown) (unknown) (no (unknown) (unknown) Urine Appearance (units (unknown) date) unknown) (unknown) (no (unknown) (unknown) Urine Bacteria (units (unknown) date) None seen unknown) (unknown) (no (unknown) (unknown) Urine Bacteria (units (unknown) date) unknown) (unknown) (no (unknown) (unknown) Urine Bilirubin (units (unknown) date) 3+ H unknown) (unknown) (no (unknown) (unknown) Urine Bilirubin (units (unknown) date) unknown) (unknown) (no (unknown) (unknown) Urine Color (units (un known) date) Brown unknown) (unknown) (no (unknown) (unknown) Urine Color (units (un known) date) unknown) (unknown) (no (unknown) (unknown) Urine Glucose (units ( unknown) date) (UA) Negative unknown) (unknown) (no (unknown) (unknown) Urine Glucose (units ( unknown) date) (UA) unknown) (unknown) (no (unknown) (unknown) Urine Ketones 1+ (units (unknown) date) H unknown) (unknown) (no (unknown) (unknown) Urine Ketones (units ( unknown) date) unknown) (unknown) (no (unknown) (unknown) Urine Nitrate (units ( unknown) date) Positive H unknown) (unknown) (no (unknown) (unknown) Urine Nitrate (units ( unknown) date) unknown) (unknown) (no (unknown) (unknown) Urine Occult (units (u nknown) date) Blood unknown) Trace-intact (unknown) (no (unknown) (unknown) Urine Occult (units (u nknown) date) Blood unknown) (unknown) (no (unknown) (unknown) Urine Protein 1+ (units (unknown) date) H unknown) (unknown) (no (unknown) (unknown) Urine Protein (units ( unknown) date) unknown) (unknown) (no (unknown) (unknown) Urine RBC (units (unkn own) date) 10-30/hpf H unknown) (unknown) (no (unknown) (unknown) Urine RBC (units (unkn own) date) unknown) (unknown) (no (unknown) (unknown) Urine (units (unkno wn) date) Urobilinogen 1.0 unknown) (unknown) (no (unknown) (unknown) Urine (units (unkno wn) date) Urobilinogen unknown) (unknown) (no (unknown) (unknown) Urine WBC (units (unkn own) date) 1-5/hpf unknown) (unknown) (no (unknown) (unknown) Urine WBC (units (unkn own) date) unknown) (unknown) (no (unknown) (unknown) Urine pH 6.5 (units (u nknown) date) unknown) (unknown) (no (unknown) (unknown) Urine pH (units (unkno wn) date) unknown) (unknown) (no (unknown) (unknown) Vital Signs (units (un known) date) unknown) (unknown) (no (unknown) (unknown) WBC 9.6 (units (unkno wn) date) unknown) (unknown) (no (unknown) (unknown) WBC (units (unkno wn) date) unknown) (unknown) (no (unknown) (unknown) [Embedded Image (units (unknown) date) Not Available] unknown) (unknown) (no (unknown) (unknown) [From Prevnar] (units (unknown) date) and feet x unknown) (unknown) (no (unknown) (unknown) abnormal. COVID, (units (unknown) date) influenza a/B/RSV unknown) negative. Head CT negative. CXR ?Possible (unknown) (no (unknown) (unknown) after. (units (unkno wn) date) unknown) (unknown) (no (unknown) (unknown) alcohol intake (units (unknown) date) frequency a few unknown) times a month (unknown) (no (unknown) (unknown) conjugate to of (units (unknown) date) hands unknown) (unknown) (no (unknown) (unknown) coordination (units (u nknown) date) issues, and unknown) concerns for neoplastic syndrome with a recent 30 lb (unknown) (no (unknown) (unknown) due to his (units (unk nown) date) significant unknown) presentation of cachexia, weakness, malaise balance (unknown) (no (unknown) (unknown) dysuria, (units (unkno wn) date) frequency, unknown) urgency, hematuria, bowel changes, constipation, (unknown) (no (unknown) (unknown) falls, head (units (un known) date) injury, LOC, unknown) fever, body aches, chills, cough, recent exposure to (unknown) (no (unknown) (unknown) greater than (units (u nknown) date) left pulmonary unknown) effusion. SOFA:2 patient admitted for mild sepsis, (unknown) (no (unknown) (unknown) illness, (units (unkno wn) date) abdominal pain, unknown) nausea, vomiting, urinary incontinence/rete ntion, (unknown) (no (unknown) (unknown) incontinence, (units ( unknown) date) melena, rashes, unknown) recent changes to medication, illness, injury, or (unknown) (no (unknown) (unknown) infiltrates (units (un known) date) versus unknown) inflammatory pulmonary opacities mild to moderate right (unknown) (no (unknown) (unknown) into the ED by (units (unknown) date) his . Patient unknown) demonstrated escalating tachycardia with heart (unknown) (no (unknown) (unknown) mild right and (units (unknown) date) retrocardiac unknown) opacities Chest CT demonstrated bibasilar (unknown) (no (unknown) (unknown) negative, BNP (units ( unknown) date) 1430. 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 Gillette cardiology's office (unknown) (no (unknown) (unknown) pneumococcal (units (u nknown) date) 7-valent AdvReac unknown) Intermediate swelling Verified 06/16/22 12:46 (unknown) (no (unknown) (unknown) rates 111-154, (units (unknown) date) and tachypneic unknown) respiratory rate in the 20s. (unknown) (no (unknown) (unknown) today; this time (units (unknown) date) is exclusive of unknown) procedural time. (unknown) (no (unknown) (unknown) transaminitis, (units (unknown) date) UTI, elevated unknown) phosphorus. (unknown) (no (unknown) (unknown) trauma. (units (unkno wn) date) unknown) (unknown) (no (unknown) (unknown) vision, (units (unkno wn) date) difficulty unknown) swallowing, speech impairment, numbness, tingling, recent (unknown) (no (unknown) (unknown) weight loss, and (units (unknown) date) night sweats with unknown) a shuffling gait x6 weeks. He was brought Result panel 208 (unknown) (no (unknown) (unknown) (no value) (units (unk nown) date) unknown) (unknown) (no (unknown) (unknown) (past 8 hours): (units (unknown) date) unknown) (unknown) (no (unknown) (unknown) [id number] (units (unkno wn) date) unknown) (unknown) (no (unknown) (unknown) 06/16/22 (units (unkno wn) date) 06/16/22 06/16/22 unknown) (unknown) (no (unknown) (unknown) 06/16/22 (units (unkno wn) date) 06/16/22 unknown) (unknown) (no (unknown) (unknown) 06/16/22 12:35 (units (unknown) date) unknown) (unknown) (no (unknown) (unknown) 06/16/22 (units (unkno wn) date) unknown) (unknown) (no (unknown) (unknown) 12:35 12:35 (units (un known) date) 12:35 unknown) (unknown) (no (unknown) (unknown) 13:15 06/16/22 (units (unknown) date) unknown) (unknown) (no (unknown) (unknown) 13:30 (units (unkno wn) date) unknown) (unknown) (no (unknown) (unknown) 13:45 06/16/22 (units (unknown) date) unknown) (unknown) (no (unknown) (unknown) 13:46 06/16/22 (units (unknown) date) unknown) (unknown) (no (unknown) (unknown) 13:46 (units (unkno wn) date) unknown) (unknown) (no (unknown) (unknown) 14:00 06/16/22 (units (unknown) date) unknown) (unknown) (no (unknown) (unknown) 14:24 (units (unkno wn) date) unknown) (unknown) (no (unknown) (unknown) 14:30 06/16/22 (units (unknown) date) unknown) (unknown) (no (unknown) (unknown) 14:45 06/16/22 (units (unknown) date) unknown) (unknown) (no (unknown) (unknown) 15:00 (units (unkno wn) date) unknown) (unknown) (no (unknown) (unknown) 15:15 06/16/22 (units (unknown) date) unknown) (unknown) (no (unknown) (unknown) 15:30 06/16/22 (units (unknown) date) unknown) (unknown) (no (unknown) (unknown) 15:30 17:55 (units (un known) date) unknown) (unknown) (no (unknown) (unknown) 15:34 06/16/22 (units (unknown) date) unknown) (unknown) (no (unknown) (unknown) 15:34 (units (unkno wn) date) unknown) (unknown) (no (unknown) (unknown) 15:45 06/16/22 (units (unknown) date) unknown) (unknown) (no (unknown) (unknown) 15:45 (units (unkno wn) date) unknown) (unknown) (no (unknown) (unknown) 16:00 06/16/22 (units (unknown) date) unknown) (unknown) (no (unknown) (unknown) 16:15 06/16/22 (units (unknown) date) unknown) (unknown) (no (unknown) (unknown) 16:15 (units (unkno wn) date) unknown) (unknown) (no (unknown) (unknown) 16:30 06/16/22 (units (unknown) date) unknown) (unknown) (no (unknown) (unknown) 16:31 06/16/22 (units (unknown) date) unknown) (unknown) (no (unknown) (unknown) 16:31 (units (unkno wn) date) unknown) (unknown) (no (unknown) (unknown) 16:45 06/16/22 (units (unknown) date) unknown) (unknown) (no (unknown) (unknown) 17:00 06/16/22 (units (unknown) date) unknown) (unknown) (no (unknown) (unknown) 17:00 (units (unkno wn) date) unknown) (unknown) (no (unknown) (unknown) 17:15 06/16/22 (units (unknown) date) unknown) (unknown) (no (unknown) (unknown) 17:15 (units (unkno wn) date) unknown) (unknown) (no (unknown) (unknown) 17:30 06/16/22 (units (unknown) date) unknown) (unknown) (no (unknown) (unknown) 17:45 (units (unkno wn) date) unknown) (unknown) (no (unknown) (unknown) 17:46 06/16/22 (units (unknown) date) unknown) (unknown) (no (unknown) (unknown) 17:59 (units (unkno wn) date) unknown) (unknown) (no (unknown) (unknown) 18:00 06/16/22 (units (unknown) date) unknown) (unknown) (no (unknown) (unknown) 18:01 06/16/22 (units (unknown) date) unknown) (unknown) (no (unknown) (unknown) 18:15 06/16/22 (units (unknown) date) unknown) (unknown) (no (unknown) (unknown) 18:15 (units (unkno wn) date) unknown) (unknown) (no (unknown) (unknown) 18:30 06/16/22 (units (unknown) date) unknown) (unknown) (no (unknown) (unknown) 18:30 (units (unkno wn) date) unknown) (unknown) (no (unknown) (unknown) 18:45 06/16/22 (units (unknown) date) unknown) (unknown) (no (unknown) (unknown) 19:00 06/16/22 (units (unknown) date) unknown) (unknown) (no (unknown) (unknown) 19:00 (units (unkno wn) date) unknown) (unknown) (no (unknown) (unknown) 19:15 06/16/22 (units (unknown) date) unknown) (unknown) (no (unknown) (unknown) 19:15 (units (unkno wn) date) unknown) (unknown) (no (unknown) (unknown) 19:30 06/16/22 (units (unknown) date) unknown) (unknown) (no (unknown) (unknown) 19:45 06/16/22 (units (unknown) date) unknown) (unknown) (no (unknown) (unknown) 19:45 (units (unkno wn) date) unknown) (unknown) (no (unknown) (unknown) 20:00 06/16/22 (units (unknown) date) unknown) (unknown) (no (unknown) (unknown) 20:00 (units (unkno wn) date) unknown) (unknown) (no (unknown) (unknown) 20:15 06/16/22 (units (unknown) date) unknown) (unknown) (no (unknown) (unknown) 20:30 06/16/22 (units (unknown) date) unknown) (unknown) (no (unknown) (unknown) 20:30 (units (unkno wn) date) unknown) (unknown) (no (unknown) (unknown) 20:45 06/16/22 (units (unknown) date) unknown) (unknown) (no (unknown) (unknown) 20:46 06/16/22 (units (unknown) date) unknown) (unknown) (no (unknown) (unknown) 20:46 (units (unkno wn) date) unknown) (unknown) (no (unknown) (unknown) 20:55 (units (unkno wn) date) unknown) (unknown) (no (unknown) (unknown) 34, glucose 146, (units (unknown) date) calcium 8.1, unknown) magnesium 2.6, phosphorus 4.1, bili 2.1, AST 61, (unknown) (no (unknown) (unknown) 4 mos (units (unkno wn) date) unknown) (unknown) (no (unknown) (unknown) 4.3, repeat 2.7, (units (unknown) date) procalcitonin unknown) 3.27, PT 17.6, INR 1.5, PTT 38. Sodium 135, BUN (unknown) (no (unknown) (unknown) 98% on room air. (units (unknown) date) Patient has no unknown) WBC, but left shiftneut 8200, initial lactate (unknown) (no (unknown) (unknown) ALT 63 H (units (unkno wn) date) unknown) (unknown) (no (unknown) (unknown) ALT 63, alk-phos (units (unknown) date) 428, total unknown) protein 5.8, albumin 3.1, CK 53, initial troponin (unknown) (no (unknown) (unknown) ALT (units (unkno wn) date) unknown) (unknown) (no (unknown) (unknown) APTT 38 H (units (unkn own) date) unknown) (unknown) (no (unknown) (unknown) APTT (units (unkno wn) date) unknown) (unknown) (no (unknown) (unknown) AST 61 H (units (unkno wn) date) unknown) (unknown) (no (unknown) (unknown) AST (units (unkno wn) date) unknown) (unknown) (no (unknown) (unknown) Abdomen: Soft (units ( unknown) date) nontender, unknown) negative for organomegaly, or masses. Bowel sounds (unknown) (no (unknown) (unknown) Age/Sex: 86 / M (units (unknown) date) unknown) (unknown) (no (unknown) (unknown) Albumin 3.1 L (units ( unknown) date) unknown) (unknown) (no (unknown) (unknown) Albumin (units (unkno wn) date) unknown) (unknown) (no (unknown) (unknown) Albumin/Globulin (units (unknown) date) Ratio 1.1 unknown) (unknown) (no (unknown) (unknown) Albumin/Globulin (units (unknown) date) Ratio unknown) (unknown) (no (unknown) (unknown) Alkaline (units (unkno wn) date) Phosphatase 428 H unknown) (unknown) (no (unknown) (unknown) Alkaline (units (unkno wn) date) Phosphatase unknown) (unknown) (no (unknown) (unknown) All 12 point (units (un known) date) systems reviewed unknown) with the patient and are negative except otherwise (unknown) (no (unknown) (unknown) Allergies (units (unkn own) date) unknown) (unknown) (no (unknown) (unknown) Allergy/AdvReac (units (unknown) date) Type Severity unknown) Reaction Status Date / Time (unknown) (no (unknown) (unknown) Assessment + (units (u nknown) date) Plan narrative: unknown) (unknown) (no (unknown) (unknown) Assessment + (units (u nknown) date) Plan unknown) (unknown) (no (unknown) (unknown) Atrial (units (unkno wn) date) fibrillation unknown) (unknown) (no (unknown) (unknown) BUN 34 H (units (unkno wn) date) unknown) (unknown) (no (unknown) (unknown) BUN (units (unkno wn) date) unknown) (unknown) (no (unknown) (unknown) BUN/Creatinine (units (unknown) date) Ratio 34.3 H unknown) (unknown) (no (unknown) (unknown) BUN/Creatinine (units (unknown) date) Ratio unknown) (unknown) (no (unknown) (unknown) Baso # (Auto) (units ( unknown) date) 100 unknown) (unknown) (no (unknown) (unknown) Baso # (Auto) (units ( unknown) date) unknown) (unknown) (no (unknown) (unknown) Baso % (Auto) (units ( unknown) date) 0.8 unknown) (unknown) (no (unknown) (unknown) Baso % (Auto) (units ( unknown) date) unknown) (unknown) (no (unknown) (unknown) Blood Pressure (units (unknown) date) 141/57 H unknown) (unknown) (no (unknown) (unknown) Blood Pressure (units (unknown) date) 141/73 H unknown) (unknown) (no (unknown) (unknown) Blood Pressure (units (unknown) date) 142/65 H 156/70 H unknown) (unknown) (no (unknown) (unknown) Blood Pressure (units (unknown) date) 142/67 H unknown) (unknown) (no (unknown) (unknown) Blood Pressure (units (unknown) date) 143/67 H unknown) (unknown) (no (unknown) (unknown) Blood Pressure (units (unknown) date) 145/69 H unknown) (unknown) (no (unknown) (unknown) Blood Pressure (units (unknown) date) 146/69 H unknown) (unknown) (no (unknown) (unknown) Blood Pressure (units (unknown) date) 147/71 H 150/72 H unknown) (unknown) (no (unknown) (unknown) Blood Pressure (units (unknown) date) 149/68 H 130/59 L unknown) (unknown) (no (unknown) (unknown) Blood Pressure (units (unknown) date) 149/78 H 155/70 H unknown) (unknown) (no (unknown) (unknown) Blood Pressure (units (unknown) date) 150/73 H unknown) (unknown) (no (unknown) (unknown) Blood Pressure (units (unknown) date) 151/72 H unknown) (unknown) (no (unknown) (unknown) Blood Pressure (units (unknown) date) 154/73 H unknown) (unknown) (no (unknown) (unknown) Blood Pressure (units (unknown) date) 156/72 H 151/72 H unknown) (unknown) (no (unknown) (unknown) Blood Pressure (units (unknown) date) 162/114 H unknown) (unknown) (no (unknown) (unknown) Blood Pressure (units (unknown) date) 164/94 H 164/96 H unknown) (unknown) (no (unknown) (unknown) Blood Pressure (units (unknown) date) 179/74 H 179/94 H unknown) (unknown) (no (unknown) (unknown) Blood Pressure (units (unknown) date) 186/112 H 169/75 unknown) H (unknown) (no (unknown) (unknown) Blood Pressure (units (unknown) date) unknown) (unknown) (no (unknown) (unknown) CK-MB (CK-2) Rel (units (unknown) date) Index TNP unknown) (unknown) (no (unknown) (unknown) CK-MB (CK-2) Rel (units (unknown) date) Index unknown) (unknown) (no (unknown) (unknown) CK-MB (CK-2) TNP (units (unknown) date) unknown) (unknown) (no (unknown) (unknown) CK-MB (CK-2) (units (u nknown) date) unknown) (unknown) (no (unknown) (unknown) Calcium 8.1 L (units ( unknown) date) unknown) (unknown) (no (unknown) (unknown) Calcium (units (unkno wn) date) unknown) (unknown) (no (unknown) (unknown) Carbon Dioxide (units (unknown) date) 28 unknown) (unknown) (no (unknown) (unknown) Carbon Dioxide (units (unknown) date) unknown) (unknown) (no (unknown) (unknown) Cardio: S1 + S2 (units (unknown) date) with regular rate unknown) and rhythm without murmur, rubs, or gallops, (unknown) (no (unknown) (unknown) Chest: Normal AP (units (unknown) date) diameter and unknown) contour without kyphoscoliosis, no nasal flaring, (unknown) (no (unknown) (unknown) Chief complaint: (units (unknown) date) Pain near unknown) pacemaker (unknown) (no (unknown) (unknown) Chloride 99 (units (un known) date) unknown) (unknown) (no (unknown) (unknown) Chloride (units (unkno wn) date) unknown) (unknown) (no (unknown) (unknown) Creatinine 0.99 (units (unknown) date) unknown) (unknown) (no (unknown) (unknown) Creatinine (units (unk nown) date) unknown) (unknown) (no (unknown) (unknown) Critical Care (units ( unknown) date) time: unknown) (unknown) (no (unknown) (unknown) : 1935 (units (unknown) date) Acct:[id number] unknown) (unknown) (no (unknown) (unknown) Date Patient (units (u nknown) date) Seen: 06/16/22 unknown) (unknown) (no (unknown) (unknown) Date of Service: (units (unknown) date) 06/16/22 unknown) (unknown) (no (unknown) (unknown) Yoseph Cardoso is (units (unknown) date) a 86-year-old unknown) male with a history of atrial fibrillation, with (unknown) (no (unknown) (unknown) Environment (units (un known) date) unknown) (unknown) (no (unknown) (unknown) Eos # (Auto) 0 (units (unknown) date) unknown) (unknown) (no (unknown) (unknown) Eos # (Auto) (units (u nknown) date) unknown) (unknown) (no (unknown) (unknown) Eos % (Auto) 0.1 (units (unknown) date) L unknown) (unknown) (no (unknown) (unknown) Eos % (Auto) (units (u nknown) date) unknown) (unknown) (no (unknown) (unknown) Estimated GFR > (units (unknown) date) 60 unknown) (unknown) (no (unknown) (unknown) Estimated GFR (units ( unknown) date) unknown) (unknown) (no (unknown) (unknown) Exam Narrative: (units (unknown) date) unknown) (unknown) (no (unknown) (unknown) Exam (units (unkno wn) date) unknown) (unknown) (no (unknown) (unknown) Family + Social (units (unknown) date) History unknown) (unknown) (no (unknown) (unknown) Feels Safe in (units ( unknown) date) Current Yes unknown) (unknown) (no (unknown) (unknown) Fever, jaundice, (units (unknown) date) right upper unknown) quadrant pain? (unknown) (no (unknown) (unknown) General: Patient (units (unknown) date) is a unknown) well-developed, well-nourished in no distress at this (unknown) (no (unknown) (unknown) Globulin 2.7 (units (u nknown) date) unknown) (unknown) (no (unknown) (unknown) Globulin (units (unkno wn) date) unknown) (unknown) (no (unknown) (unknown) Glucose 146 H (units ( unknown) date) unknown) (unknown) (no (unknown) (unknown) Glucose (units (unkno wn) date) unknown) (unknown) (no (unknown) (unknown) HEENT: (units (unkno wn) date) Normocephalic, unknown) atraumatic, extraocular muscles intact, oral pharynx is (unknown) (no (unknown) (unknown) Hct 46.6 (units (unkno wn) date) unknown) (unknown) (no (unknown) (unknown) Hct (units (unkno wn) date) unknown) (unknown) (no (unknown) (unknown) Hgb 15.4 (units (unkno wn) date) unknown) (unknown) (no (unknown) (unknown) Hgb (units (unkno wn) date) unknown) (unknown) (no (unknown) (unknown) History + (units (unkn own) date) Physical Report unknown) (unknown) (no (unknown) (unknown) History of (units (unk nown) date) Present Illness unknown) (unknown) (no (unknown) (unknown) History of (units (unk nown) date) melanoma unknown) (unknown) (no (unknown) (unknown) 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 (unknown) (no (unknown) (unknown) Home Medications (units (unknown) date) and Allergies unknown) (unknown) (no (unknown) (unknown) Home Medications (units (unknown) date) unknown) (unknown) (no (unknown) (unknown) I spent a total (units (unknown) date) of [] minutes of unknown) critical care time on this patient's care (unknown) (no (unknown) (unknown) INR 1.5 H (units (unkn own) date) unknown) (unknown) (no (unknown) (unknown) INR (units (unkno wn) date) unknown) (unknown) (no (unknown) (unknown) Influenza A (units (un known) date) (RT-PCR) Flu a unknown) negative (unknown) (no (unknown) (unknown) Influenza A (units (un known) date) (RT-PCR) unknown) (unknown) (no (unknown) (unknown) Influenza B (units (un known) date) (RT-PCR) Flu b unknown) negative (unknown) (no (unknown) (unknown) Influenza B (units (un known) date) (RT-PCR) unknown) (unknown) (no (unknown) (unknown) [facility] (units (unknown) date) [address] unknown) [place] [address] (unknown) (no (unknown) (unknown) Laboratory (units (unk nown) date) Results - last unknown) hr (unknown) (no (unknown) (unknown) Labs (units (unkno wn) date) unknown) (unknown) (no (unknown) (unknown) Labs: (units (unkno wn) date) unknown) (unknown) (no (unknown) (unknown) Lactate 2.7 H (units ( unknown) date) unknown) (unknown) (no (unknown) (unknown) Lactate 4.3 H* (units (unknown) date) unknown) (unknown) (no (unknown) (unknown) Lactate (units (unkno wn) date) unknown) (unknown) (no (unknown) (unknown) Lipase 45 (units (unkn own) date) unknown) (unknown) (no (unknown) (unknown) Lipase (units (unkno wn) date) unknown) (unknown) (no (unknown) (unknown) Lungs: (units (unkno wn) date) Auscultation of unknown) all lung troy are clear without adventitious sounds, (unknown) (no (unknown) (unknown) Lymph # (Auto) (units (unknown) date) 400 L unknown) (unknown) (no (unknown) (unknown) Lymph # (Auto) (units (unknown) date) unknown) (unknown) (no (unknown) (unknown) Lymph % (Auto) (units (unknown) date) 4.6 L unknown) (unknown) (no (unknown) (unknown) Lymph % (Auto) (units (unknown) date) unknown) (unknown) (no (unknown) (unknown) MCH 30.4 (units (unkno wn) date) unknown) (unknown) (no (unknown) (unknown) MCH (units (unkno wn) date) unknown) (unknown) (no (unknown) (unknown) MCHC 33.0 (units (unkn own) date) unknown) (unknown) (no (unknown) (unknown) MCHC (units (unkno wn) date) unknown) (unknown) (no (unknown) (unknown) MCV 92.4 (units (unkno wn) date) unknown) (unknown) (no (unknown) (unknown) MCV (units (unkno wn) date) unknown) (unknown) (no (unknown) (unknown) Magnesium 2.6 H (units (unknown) date) unknown) (unknown) (no (unknown) (unknown) Magnesium (units (unkn own) date) unknown) (unknown) (no (unknown) (unknown) Medical History (units (unknown) date) (Updated 06/16/22 unknown) @ 21:27 by Hawa Michael [facility]) (unknown) (no (unknown) (unknown) Medication (units (unk nown) date) Instructions unknown) Recorded Confirmed Type (unknown) (no (unknown) (unknown) Meds (units (unkno wn) date) unknown) (unknown) (no (unknown) (unknown) [place] # (Auto) (units ( unknown) date) 900 unknown) (unknown) (no (unknown) (unknown) [place] # (Auto) (units ( unknown) date) unknown) (unknown) (no (unknown) (unknown) [place] % (Auto) (units ( unknown) date) 9.4 unknown) (unknown) (no (unknown) (unknown) [place] % (Auto) (units ( unknown) date) unknown) (unknown) (no (unknown) (unknown) Musculoskeletal: (units (unknown) date) Muscle strength unknown) and tone are equal within normal limits, no (unknown) (no (unknown) (unknown) NT-Pro-B (units (unkno wn) date) Natriuret Pep unknown) 1430 H (unknown) (no (unknown) (unknown) NT-Pro-B (units (unkno wn) date) Natriuret Pep unknown) (unknown) (no (unknown) (unknown) Narrative (units (unkn own) date) unknown) (unknown) (no (unknown) (unknown) Narrative: (units (unk nown) date) unknown) (unknown) (no (unknown) (unknown) Negative for JVD (units (unknown) date) unknown) (unknown) (no (unknown) (unknown) Neuro: Alert and (units (unknown) date) orientated x3, unknown) strength is +5/5 in all extremities, sensation (unknown) (no (unknown) (unknown) Neut # (Auto) (units ( unknown) date) 8200 H unknown) (unknown) (no (unknown) (unknown) Neut # (Auto) (units ( unknown) date) unknown) (unknown) (no (unknown) (unknown) Neut % (Auto) (units ( unknown) date) 85.1 H unknown) (unknown) (no (unknown) (unknown) Neut % (Auto) (units ( unknown) date) unknown) (unknown) (no (unknown) (unknown) No Known Home (units ( unknown) date) Medications unknown) 12/20/20 12/20/20 History (unknown) (no (unknown) (unknown) Objective (units (unkn own) date) unknown) (unknown) (no (unknown) (unknown) On admit patient (units (unknown) date) denies chest unknown) pain, shortness in breath, headache, changes in (unknown) (no (unknown) (unknown) Oxygen Delivery (units (unknown) date) Method Room Air unknown) (unknown) (no (unknown) (unknown) Oxygen Delivery (units (unknown) date) Method unknown) (unknown) (no (unknown) (unknown) PT 17.6 H (units (unkn own) date) unknown) (unknown) (no (unknown) (unknown) PT (units (unkno wn) date) unknown) (unknown) (no (unknown) (unknown) Pacemaker (units (unkn own) date) unknown) (unknown) (no (unknown) (unknown) Patient History (units (unknown) date) unknown) (unknown) (no (unknown) (unknown) Patient: (units (unkno wn) date) Debode,Yoseph G unknown) MR#: [id number] (unknown) (no (unknown) (unknown) Phosphorus 4.1 H (units (unknown) date) unknown) (unknown) (no (unknown) (unknown) Phosphorus (units (unk nown) date) unknown) (unknown) (no (unknown) (unknown) Plt Count 222 (units ( unknown) date) unknown) (unknown) (no (unknown) (unknown) Plt Count (units (unkn own) date) unknown) (unknown) (no (unknown) (unknown) Potassium 4.8 (units ( unknown) date) unknown) (unknown) (no (unknown) (unknown) Potassium (units (unkn own) date) unknown) (unknown) (no (unknown) (unknown) Procalcitonin (units ( unknown) date) 3.27 H unknown) (unknown) (no (unknown) (unknown) Procalcitonin (units ( unknown) date) unknown) (unknown) (no (unknown) (unknown) Provider: (units (unkn own) date) Hawa Michael unknown) 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 (unknown) (no (unknown) (unknown) Psych: Patient (units (unknown) date) has a well-kept unknown) appearance, appropriate affect, mental status (unknown) (no (unknown) (unknown) Pulse Oximetry (units (unknown) date) 93 100 unknown) (unknown) (no (unknown) (unknown) Pulse Oximetry (units (unknown) date) 94 96 unknown) (unknown) (no (unknown) (unknown) Pulse Oximetry (units (unknown) date) 95 unknown) (unknown) (no (unknown) (unknown) Pulse Oximetry (units (unknown) date) 96 91 unknown) (unknown) (no (unknown) (unknown) Pulse Oximetry (units (unknown) date) 96 99 unknown) (unknown) (no (unknown) (unknown) Pulse Oximetry (units (unknown) date) 96 unknown) (unknown) (no (unknown) (unknown) Pulse Oximetry (units (unknown) date) 97 96 97 unknown) (unknown) (no (unknown) (unknown) Pulse Oximetry (units (unknown) date) 97 97 98 unknown) (unknown) (no (unknown) (unknown) Pulse Oximetry (units (unknown) date) 97 97 unknown) (unknown) (no (unknown) (unknown) Pulse Oximetry (units (unknown) date) 97 unknown) (unknown) (no (unknown) (unknown) Pulse Oximetry (units (unknown) date) 98 97 unknown) (unknown) (no (unknown) (unknown) Pulse Oximetry (units (unknown) date) 98 unknown) (unknown) (no (unknown) (unknown) Pulse Oximetry (units (unknown) date) unknown) (unknown) (no (unknown) (unknown) Pulse Rate 111 H (units (unknown) date) unknown) (unknown) (no (unknown) (unknown) Pulse Rate 114 H (units (unknown) date) 118 H unknown) (unknown) (no (unknown) (unknown) Pulse Rate 154 H (units (unknown) date) unknown) (unknown) (no (unknown) (unknown) Pulse Rate 72 66 (units (unknown) date) unknown) (unknown) (no (unknown) (unknown) Pulse Rate 72 71 (units (unknown) date) unknown) (unknown) (no (unknown) (unknown) Pulse Rate 72 74 (units (unknown) date) unknown) (unknown) (no (unknown) (unknown) Pulse Rate 72 (units ( unknown) date) unknown) (unknown) (no (unknown) (unknown) Pulse Rate 73 74 (units (unknown) date) unknown) (unknown) (no (unknown) (unknown) Pulse Rate 73 87 (units (unknown) date) 98 H unknown) (unknown) (no (unknown) (unknown) Pulse Rate 73 (units ( unknown) date) unknown) (unknown) (no (unknown) (unknown) Pulse Rate 74 (units ( unknown) date) 104 H 106 H unknown) (unknown) (no (unknown) (unknown) Pulse Rate 75 (units ( unknown) date) 116 H unknown) (unknown) (no (unknown) (unknown) Pulse Rate 75 70 (units (unknown) date) unknown) (unknown) (no (unknown) (unknown) Pulse Rate 75 74 (units (unknown) date) 74 unknown) (unknown) (no (unknown) (unknown) Pulse Rate 75 (units ( unknown) date) unknown) (unknown) (no (unknown) (unknown) Pulse Rate 76 (units ( unknown) date) unknown) (unknown) (no (unknown) (unknown) Pulse Rate 78 75 (units (unknown) date) unknown) (unknown) (no (unknown) (unknown) Pulse Rate 84 77 (units (unknown) date) unknown) (unknown) (no (unknown) (unknown) Pulse Rate 86 72 (units (unknown) date) unknown) (unknown) (no (unknown) (unknown) Pulse Rate 98 H (units (unknown) date) unknown) (unknown) (no (unknown) (unknown) RBC 5.05 (units (unkno wn) date) unknown) (unknown) (no (unknown) (unknown) RBC (units (unkno wn) date) unknown) (unknown) (no (unknown) (unknown) RDW 14.4 (units (unkno wn) date) unknown) (unknown) (no (unknown) (unknown) RDW (units (unkno wn) date) unknown) (unknown) (no (unknown) (unknown) RSV (PCR) (units (unkn own) date) Negative unknown) (unknown) (no (unknown) (unknown) RSV (PCR) (units (unkn own) date) unknown) (unknown) (no (unknown) (unknown) Respiratory Rate (units (unknown) date) 12 25 H unknown) (unknown) (no (unknown) (unknown) Respiratory Rate (units (unknown) date) 13 26 H unknown) (unknown) (no (unknown) (unknown) Respiratory Rate (units (unknown) date) 16 20 unknown) (unknown) (no (unknown) (unknown) Respiratory Rate (units (unknown) date) 17 26 H unknown) (unknown) (no (unknown) (unknown) Respiratory Rate (units (unknown) date) 17 unknown) (unknown) (no (unknown) (unknown) Respiratory Rate (units (unknown) date) 18 32 H unknown) (unknown) (no (unknown) (unknown) Respiratory Rate (units (unknown) date) 18 unknown) (unknown) (no (unknown) (unknown) Respiratory Rate (units (unknown) date) 19 18 unknown) (unknown) (no (unknown) (unknown) Respiratory Rate (units (unknown) date) 19 34 H 39 H unknown) (unknown) (no (unknown) (unknown) Respiratory Rate (units (unknown) date) 19 unknown) (unknown) (no (unknown) (unknown) Respiratory Rate (units (unknown) date) 20 unknown) (unknown) (no (unknown) (unknown) Respiratory Rate (units (unknown) date) 22 20 unknown) (unknown) (no (unknown) (unknown) Respiratory Rate (units (unknown) date) 23 17 16 unknown) (unknown) (no (unknown) (unknown) Respiratory Rate (units (unknown) date) 23 18 unknown) (unknown) (no (unknown) (unknown) Respiratory Rate (units (unknown) date) 24 19 unknown) (unknown) (no (unknown) (unknown) Respiratory Rate (units (unknown) date) 24 23 unknown) (unknown) (no (unknown) (unknown) Respiratory Rate (units (unknown) date) 27 H unknown) (unknown) (no (unknown) (unknown) Respiratory Rate (units (unknown) date) 29 H unknown) (unknown) (no (unknown) (unknown) Respiratory Rate (units (unknown) date) 30 H 24 unknown) (unknown) (no (unknown) (unknown) Respiratory Rate (units (unknown) date) unknown) (unknown) (no (unknown) (unknown) Review of (units (unkn own) date) Systems unknown) (unknown) (no (unknown) (unknown) SARS-CoV-2 (PCR) (units (unknown) date) Negative unknown) (unknown) (no (unknown) (unknown) SARS-CoV-2 (PCR) (units (unknown) date) unknown) (unknown) (no (unknown) (unknown) Safety + (units (unkno wn) date) Behavioral: unknown) (unknown) (no (unknown) (unknown) Signed By: (units (unk nown) date) unknown) (unknown) (no (unknown) (unknown) Skin: Warm dry (units (unknown) date) and intact unknown) without rashes, ulcerations or petechiae. (unknown) (no (unknown) (unknown) Smoking Status (units (unknown) date) Smoker, status unknown) unknown (unknown) (no (unknown) (unknown) Sodium 135 L (units (u nknown) date) unknown) (unknown) (no (unknown) (unknown) Sodium (units (unkno wn) date) unknown) (unknown) (no (unknown) (unknown) Substance Use (units ( unknown) date) Type does not use unknown) (unknown) (no (unknown) (unknown) Surgical History (units (unknown) date) (Updated 06/16/22 unknown) @ 21:27 by Hawa Michael [facility]) (unknown) (no (unknown) (unknown) Temperature 98.1 (units (unknown) date) F unknown) (unknown) (no (unknown) (unknown) Temperature (units (un known) date) unknown) (unknown) (no (unknown) (unknown) Time Patient (units (u nknown) date) Seen: 15:35 unknown) (unknown) (no (unknown) (unknown) Time Spent With (units (unknown) date) Patient unknown) (unknown) (no (unknown) (unknown) Tobacco + (units (unkn own) date) Substance use: unknown) (unknown) (no (unknown) (unknown) Total Bilirubin (units (unknown) date) 2.1 H unknown) (unknown) (no (unknown) (unknown) Total Bilirubin (units (unknown) date) unknown) (unknown) (no (unknown) (unknown) Total Creatine (units (unknown) date) Kinase 53 L unknown) (unknown) (no (unknown) (unknown) Total Creatine (units (unknown) date) Kinase unknown) (unknown) (no (unknown) (unknown) Total Protein (units ( unknown) date) 5.8 L unknown) (unknown) (no (unknown) (unknown) Total Protein (units ( unknown) date) unknown) (unknown) (no (unknown) (unknown) Troponin I < (units (u nknown) date) 0.012 unknown) (unknown) (no (unknown) (unknown) Troponin I (units (unk nown) date) unknown) (unknown) (no (unknown) (unknown) Upon admit BP (units (u nknown) date) 149/78, unknown) tachycardic heart rate 154, tachypneic R 29, O2 saturation (unknown) (no (unknown) (unknown) Ur Bilirubin (units (u nknown) date) Confirm Positive unknown) H (unknown) (no (unknown) (unknown) Ur Bilirubin (units (u nknown) date) Confirm unknown) (unknown) (no (unknown) (unknown) Ur Culture (units (unk nown) date) Indicated? unknown) Specimen cultured (unknown) (no (unknown) (unknown) Ur Culture (units (unk nown) date) Indicated? unknown) (unknown) (no (unknown) (unknown) Ur Leukocyte (units (u nknown) date) Esterase Trace H unknown) (unknown) (no (unknown) (unknown) Ur Leukocyte (units (u nknown) date) Esterase unknown) (unknown) (no (unknown) (unknown) Ur Specific (units (un known) date) [place] 1.020 unknown) (unknown) (no (unknown) (unknown) Ur Specific (units (un known) date) [place] unknown) (unknown) (no (unknown) (unknown) Ur Squamous (units (un known) date) Epith Cells 1-5 unknown) /hpf (unknown) (no (unknown) (unknown) Ur Squamous (units (un known) date) Epith Cells unknown) (unknown) (no (unknown) (unknown) Urine Appearance (units (unknown) date) Cloudy unknown) (unknown) (no (unknown) (unknown) Urine Appearance (units (unknown) date) unknown) (unknown) (no (unknown) (unknown) Urine Bacteria (units (unknown) date) None seen unknown) (unknown) (no (unknown) (unknown) Urine Bacteria (units (unknown) date) unknown) (unknown) (no (unknown) (unknown) Urine Bilirubin (units (unknown) date) 3+ H unknown) (unknown) (no (unknown) (unknown) Urine Bilirubin (units (unknown) date) unknown) (unknown) (no (unknown) (unknown) Urine Color (units (un known) date) Brown unknown) (unknown) (no (unknown) (unknown) Urine Color (units (un known) date) unknown) (unknown) (no (unknown) (unknown) Urine Glucose (units ( unknown) date) (UA) Negative unknown) (unknown) (no (unknown) (unknown) Urine Glucose (units ( unknown) date) (UA) unknown) (unknown) (no (unknown) (unknown) Urine Ketones 1+ (units (unknown) date) H unknown) (unknown) (no (unknown) (unknown) Urine Ketones (units ( unknown) date) unknown) (unknown) (no (unknown) (unknown) Urine Nitrate (units ( unknown) date) Positive H unknown) (unknown) (no (unknown) (unknown) Urine Nitrate (units ( unknown) date) unknown) (unknown) (no (unknown) (unknown) Urine Occult (units (u nknown) date) Blood unknown) Trace-intact (unknown) (no (unknown) (unknown) Urine Occult (units (u nknown) date) Blood unknown) (unknown) (no (unknown) (unknown) Urine Protein 1+ (units (unknown) date) H unknown) (unknown) (no (unknown) (unknown) Urine Protein (units ( unknown) date) unknown) (unknown) (no (unknown) (unknown) Urine RBC (units (unkn own) date) 10-30/hpf H unknown) (unknown) (no (unknown) (unknown) Urine RBC (units (unkn own) date) unknown) (unknown) (no (unknown) (unknown) Urine (units (unkno wn) date) Urobilinogen 1.0 unknown) (unknown) (no (unknown) (unknown) Urine (units (unkno wn) date) Urobilinogen unknown) (unknown) (no (unknown) (unknown) Urine WBC (units (unkn own) date) 1-5/hpf unknown) (unknown) (no (unknown) (unknown) Urine WBC (units (unkn own) date) unknown) (unknown) (no (unknown) (unknown) Urine pH 6.5 (units (u nknown) date) unknown) (unknown) (no (unknown) (unknown) Urine pH (units (unkno wn) date) unknown) (unknown) (no (unknown) (unknown) Vital Signs (units (un known) date) unknown) (unknown) (no (unknown) (unknown) WBC 9.6 (units (unkno wn) date) unknown) (unknown) (no (unknown) (unknown) WBC (units (unkno wn) date) unknown) (unknown) (no (unknown) (unknown) [Embedded Image (units (unknown) date) Not Available] unknown) (unknown) (no (unknown) (unknown) [From Prevnar] (units (unknown) date) and feet x unknown) (unknown) (no (unknown) (unknown) abnormal. COVID, (units (unknown) date) influenza a/B/RSV unknown) negative. Head CT negative. CXR ?Possible (unknown) (no (unknown) (unknown) after. (units (unkno wn) date) unknown) (unknown) (no (unknown) (unknown) alcohol intake (units (unknown) date) frequency a few unknown) times a month (unknown) (no (unknown) (unknown) are present in (units (unknown) date) all 4 quadrants unknown) without guarding or rebound, no CVA tenderness. (unknown) (no (unknown) (unknown) attitude thought (units (unknown) date) context and unknown) judgment are appropriate for age. (unknown) (no (unknown) (unknown) clear and mucous (units (unknown) date) membranes are unknown) moist. 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 Full range (unknown) (no (unknown) (unknown) documented. (units (un known) date) unknown) (unknown) (no (unknown) (unknown) due to his (units (unk nown) date) significant unknown) presentation of cachexia, weakness, malaise balance (unknown) (no (unknown) (unknown) dysuria, (units (unkno wn) date) frequency, unknown) urgency, hematuria, bowel changes, constipation, (unknown) (no (unknown) (unknown) falls, head (units (un known) date) injury, LOC, unknown) fever, body aches, chills, cough, recent exposure to (unknown) (no (unknown) (unknown) greater than (units (u nknown) date) left pulmonary unknown) effusion. SOFA:2 patient admitted for mild sepsis, (unknown) (no (unknown) (unknown) illness, (units (unkno wn) date) abdominal pain, unknown) nausea, vomiting, urinary incontinence/rete ntion, (unknown) (no (unknown) (unknown) incontinence, (units ( unknown) date) melena, rashes, unknown) recent changes to medication, illness, injury, or (unknown) (no (unknown) (unknown) infiltrates (units (un known) date) versus unknown) inflammatory pulmonary opacities mild to moderate right (unknown) (no (unknown) (unknown) into the ED by (units (unknown) date) his . Patient unknown) demonstrated escalating tachycardia with heart (unknown) (no (unknown) (unknown) midline, no (units (un known) date) adenopathy, no unknown) thyroid enlargement, nontender, no masses palpated. (unknown) (no (unknown) (unknown) mild right and (units (unknown) date) retrocardiac unknown) opacities Chest CT demonstrated bibasilar (unknown) (no (unknown) (unknown) negative, BNP (units ( unknown) date) 1430. EKG atrial unknown) sensed ventricular paced rhythm rate 72, (unknown) (no (unknown) (unknown) no carotid (units (unk nown) date) bruit, no cardiac unknown) pulsations present. (unknown) (no (unknown) (unknown) of motion intact (units (unknown) date) radial and pedal unknown) pulses are normal. 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 Gillette cardiology's office (unknown) (no (unknown) (unknown) pneumococcal (units (u nknown) date) 7-valent AdvReac unknown) Intermediate swelling Verified 06/16/22 12:46 (unknown) (no (unknown) (unknown) rates 111-154, (units (unknown) date) and tachypneic unknown) respiratory rate in the 20s. (unknown) (no (unknown) (unknown) retractions, or (units (unknown) date) tachypneic unknown) labored (unknown) (no (unknown) (unknown) time. (units (unkno wn) date) unknown) (unknown) (no (unknown) (unknown) to touch intact, (units (unknown) date) no gross deficits unknown) noted of cranial nerves. (unknown) (no (unknown) (unknown) today; this time (units (unknown) date) is exclusive of unknown) procedural time. (unknown) (no (unknown) (unknown) transaminitis, (units (unknown) date) UTI, elevated unknown) phosphorus. (unknown) (no (unknown) (unknown) trauma. (units (unkno wn) date) unknown) (unknown) (no (unknown) (unknown) vision, (units (unkno wn) date) difficulty unknown) swallowing, speech impairment, numbness, tingling, recent (unknown) (no (unknown) (unknown) weight loss, and (units (unknown) date) night sweats with unknown) a shuffling gait x6 weeks. He was brought (unknown) (no (unknown) (unknown) wheezes, (units (unkno wn) date) rhonchi, or unknown) rales. Result panel 209 (unknown) (no date) (unknown) (unknown) (no value) (units 139 55-0 unknown) (unknown) (no date) (unknown) (unknown) (no value) (units (un known) unknown) (unknown) (no date) (unknown) (unknown) 1.8 ng/ml 87574 -7 (unknown) (no date) (unknown) (unknown) 1.8 ng/ml (unkn own) (unknown) (no date) (unknown) (unknown) Negative (units (unkn own) unknown) (unknown) (no date) (unknown) (unknown) Negative (units 56553 -1 unknown) (unknown) (no date) (unknown) (unknown) Negative (units 34253 -3 unknown) (unknown) (no date) (unknown) (unknown) Negative (units 5196- 1 unknown) (unknown) (no date) (unknown) (unknown) Non Reactive (units ( unknown) unknown) (unknown) (no date) (unknown) (unknown) Non Reactive (units 4 0726-2 unknown) Result panel 210 (unknown) (no date) (unknown) (unknown) 5.8 % (unkn own) (unknown) (no date) (unknown) (unknown) 5.8 % (unkn own) Result panel 211 (unknown) (no date) (unknown) (unknown) 59 u/l (unkn own) Result panel 212 (unknown) (no date) (unknown) (unknown) 0.013 ng/ml (unkn own) (unknown) (no date) (unknown) (unknown) 0.013 ng/ml (unkn own) (unknown) (no date) (unknown) (unknown) 516 u/l (unkn own) Result panel 213 (unknown) (no (unknown) (unknown) (no value) (units (unk nown) date) unknown) (unknown) (no (unknown) (unknown) (Flovent HFA) (units ( unknown) date) unknown) (unknown) (no (unknown) (unknown) (past 8 hours): (units (unknown) date) unknown) (unknown) (no (unknown) (unknown) [id number] (units (unkno wn) date) unknown) (unknown) (no (unknown) (unknown) 06/16/22 (units (unkno wn) date) 06/16/22 06/16/22 unknown) (unknown) (no (unknown) (unknown) 06/16/22 (units (unkno wn) date) 06/16/22 unknown) (unknown) (no (unknown) (unknown) 06/16/22 12:35 (units (unknown) date) unknown) (unknown) (no (unknown) (unknown) 06/16/22 (units (unkno wn) date) unknown) (unknown) (no (unknown) (unknown) 12:35 12:35 (units (un known) date) 12:35 unknown) (unknown) (no (unknown) (unknown) 13:15 06/16/22 (units (unknown) date) unknown) (unknown) (no (unknown) (unknown) 13:30 (units (unkno wn) date) unknown) (unknown) (no (unknown) (unknown) 13:45 06/16/22 (units (unknown) date) unknown) (unknown) (no (unknown) (unknown) 13:46 06/16/22 (units (unknown) date) unknown) (unknown) (no (unknown) (unknown) 13:46 (units (unkno wn) date) unknown) (unknown) (no (unknown) (unknown) 14:00 06/16/22 (units (unknown) date) unknown) (unknown) (no (unknown) (unknown) 14:24 (units (unkno wn) date) unknown) (unknown) (no (unknown) (unknown) 14:30 06/16/22 (units (unknown) date) unknown) (unknown) (no (unknown) (unknown) 14:45 06/16/22 (units (unknown) date) unknown) (unknown) (no (unknown) (unknown) 15:00 (units (unkno wn) date) unknown) (unknown) (no (unknown) (unknown) 15:15 06/16/22 (units (unknown) date) unknown) (unknown) (no (unknown) (unknown) 15:30 06/16/22 (units (unknown) date) unknown) (unknown) (no (unknown) (unknown) 15:30 17:55 (units (un known) date) unknown) (unknown) (no (unknown) (unknown) 15:34 06/16/22 (units (unknown) date) unknown) (unknown) (no (unknown) (unknown) 15:34 (units (unkno wn) date) unknown) (unknown) (no (unknown) (unknown) 15:45 06/16/22 (units (unknown) date) unknown) (unknown) (no (unknown) (unknown) 15:45 (units (unkno wn) date) unknown) (unknown) (no (unknown) (unknown) 16:00 06/16/22 (units (unknown) date) unknown) (unknown) (no (unknown) (unknown) 16:15 06/16/22 (units (unknown) date) unknown) (unknown) (no (unknown) (unknown) 16:15 (units (unkno wn) date) unknown) (unknown) (no (unknown) (unknown) 16:30 06/16/22 (units (unknown) date) unknown) (unknown) (no (unknown) (unknown) 16:31 06/16/22 (units (unknown) date) unknown) (unknown) (no (unknown) (unknown) 16:31 (units (unkno wn) date) unknown) (unknown) (no (unknown) (unknown) 16:45 06/16/22 (units (unknown) date) unknown) (unknown) (no (unknown) (unknown) 17:00 06/16/22 (units (unknown) date) unknown) (unknown) (no (unknown) (unknown) 17:00 (units (unkno wn) date) unknown) (unknown) (no (unknown) (unknown) 17:15 06/16/22 (units (unknown) date) unknown) (unknown) (no (unknown) (unknown) 17:15 (units (unkno wn) date) unknown) (unknown) (no (unknown) (unknown) 17:30 06/16/22 (units (unknown) date) unknown) (unknown) (no (unknown) (unknown) 17:45 (units (unkno wn) date) unknown) (unknown) (no (unknown) (unknown) 17:46 06/16/22 (units (unknown) date) unknown) (unknown) (no (unknown) (unknown) 17:59 (units (unkno wn) date) unknown) (unknown) (no (unknown) (unknown) 18:00 06/16/22 (units (unknown) date) unknown) (unknown) (no (unknown) (unknown) 18:01 06/16/22 (units (unknown) date) unknown) (unknown) (no (unknown) (unknown) 18:15 06/16/22 (units (unknown) date) unknown) (unknown) (no (unknown) (unknown) 18:15 (units (unkno wn) date) unknown) (unknown) (no (unknown) (unknown) 18:30 06/16/22 (units (unknown) date) unknown) (unknown) (no (unknown) (unknown) 18:30 (units (unkno wn) date) unknown) (unknown) (no (unknown) (unknown) 18:45 06/16/22 (units (unknown) date) unknown) (unknown) (no (unknown) (unknown) 19:00 06/16/22 (units (unknown) date) unknown) (unknown) (no (unknown) (unknown) 19:00 (units (unkno wn) date) unknown) (unknown) (no (unknown) (unknown) 19:15 06/16/22 (units (unknown) date) unknown) (unknown) (no (unknown) (unknown) 19:15 (units (unkno wn) date) unknown) (unknown) (no (unknown) (unknown) 19:30 06/16/22 (units (unknown) date) unknown) (unknown) (no (unknown) (unknown) 19:45 06/16/22 (units (unknown) date) unknown) (unknown) (no (unknown) (unknown) 19:45 (units (unkno wn) date) unknown) (unknown) (no (unknown) (unknown) 20:00 06/16/22 (units (unknown) date) unknown) (unknown) (no (unknown) (unknown) 20:00 (units (unkno wn) date) unknown) (unknown) (no (unknown) (unknown) 20:15 06/16/22 (units (unknown) date) unknown) (unknown) (no (unknown) (unknown) 20:30 06/16/22 (units (unknown) date) unknown) (unknown) (no (unknown) (unknown) 20:30 (units (unkno wn) date) unknown) (unknown) (no (unknown) (unknown) 20:45 06/16/22 (units (unknown) date) unknown) (unknown) (no (unknown) (unknown) 20:46 06/16/22 (units (unknown) date) unknown) (unknown) (no (unknown) (unknown) 20:46 (units (unkno wn) date) unknown) (unknown) (no (unknown) (unknown) 20:55 (units (unkno wn) date) unknown) (unknown) (no (unknown) (unknown) 34, glucose 146, (units (unknown) date) calcium 8.1, unknown) magnesium 2.6, phosphorus 4.1, bili 2.1, AST 61, (unknown) (no (unknown) (unknown) 4 mos (units (unkno wn) date) unknown) (unknown) (no (unknown) (unknown) 4.3, repeat 2.7, (units (unknown) date) procalcitonin unknown) 3.27, PT 17.6, INR 1.5, PTT 38. Sodium 135, BUN (unknown) (no (unknown) (unknown) 98% on room air. (units (unknown) date) Patient has no unknown) WBC, but left shiftneut 8200, initial lactate (unknown) (no (unknown) (unknown) ALT 63 H (units (unkno wn) date) unknown) (unknown) (no (unknown) (unknown) ALT 63, alk-phos (units (unknown) date) 428, total unknown) protein 5.8, albumin 3.1, CK 53, initial troponin (unknown) (no (unknown) (unknown) ALT (units (unkno wn) date) unknown) (unknown) (no (unknown) (unknown) APTT 38 H (units (unkn own) date) unknown) (unknown) (no (unknown) (unknown) APTT (units (unkno wn) date) unknown) (unknown) (no (unknown) (unknown) AST 61 H (units (unkno wn) date) unknown) (unknown) (no (unknown) (unknown) AST (units (unkno wn) date) unknown) (unknown) (no (unknown) (unknown) Abdomen: Soft (units ( unknown) date) nontender, unknown) negative for organomegaly, or masses. Bowel sounds (unknown) (no (unknown) (unknown) Age/Sex: 86 / M (units (unknown) date) unknown) (unknown) (no (unknown) (unknown) Albumin 3.1 L (units ( unknown) date) unknown) (unknown) (no (unknown) (unknown) Albumin (units (unkno wn) date) unknown) (unknown) (no (unknown) (unknown) Albumin/Globulin (units (unknown) date) Ratio 1.1 unknown) (unknown) (no (unknown) (unknown) Albumin/Globulin (units (unknown) date) Ratio unknown) (unknown) (no (unknown) (unknown) Alkaline (units (unkno wn) date) Phosphatase 428 H unknown) (unknown) (no (unknown) (unknown) Alkaline (units (unkno wn) date) Phosphatase unknown) (unknown) (no (unknown) (unknown) All 12 point (units (un known) date) systems reviewed unknown) with the patient and are negative except otherwise (unknown) (no (unknown) (unknown) Allergies (units (unkn own) date) unknown) (unknown) (no (unknown) (unknown) Allergy/AdvReac (units (unknown) date) Type Severity unknown) Reaction Status Date / Time (unknown) (no (unknown) (unknown) Assessment + (units (u nknown) date) Plan narrative: unknown) (unknown) (no (unknown) (unknown) Assessment + (units (u nknown) date) Plan unknown) (unknown) (no (unknown) (unknown) Atrial (units (unkno wn) date) fibrillation unknown) (unknown) (no (unknown) (unknown) BUN 34 H (units (unkno wn) date) unknown) (unknown) (no (unknown) (unknown) BUN (units (unkno wn) date) unknown) (unknown) (no (unknown) (unknown) BUN/Creatinine (units (unknown) date) Ratio 34.3 H unknown) (unknown) (no (unknown) (unknown) BUN/Creatinine (units (unknown) date) Ratio unknown) (unknown) (no (unknown) (unknown) Baso # (Auto) (units ( unknown) date) 100 unknown) (unknown) (no (unknown) (unknown) Baso # (Auto) (units ( unknown) date) unknown) (unknown) (no (unknown) (unknown) Baso % (Auto) (units ( unknown) date) 0.8 unknown) (unknown) (no (unknown) (unknown) Baso % (Auto) (units ( unknown) date) unknown) (unknown) (no (unknown) (unknown) Blood Pressure (units (unknown) date) 141/57 H unknown) (unknown) (no (unknown) (unknown) Blood Pressure (units (unknown) date) 141/73 H unknown) (unknown) (no (unknown) (unknown) Blood Pressure (units (unknown) date) 142/65 H 156/70 H unknown) (unknown) (no (unknown) (unknown) Blood Pressure (units (unknown) date) 142/67 H unknown) (unknown) (no (unknown) (unknown) Blood Pressure (units (unknown) date) 143/67 H unknown) (unknown) (no (unknown) (unknown) Blood Pressure (units (unknown) date) 145/69 H unknown) (unknown) (no (unknown) (unknown) Blood Pressure (units (unknown) date) 146/69 H unknown) (unknown) (no (unknown) (unknown) Blood Pressure (units (unknown) date) 147/71 H 150/72 H unknown) (unknown) (no (unknown) (unknown) Blood Pressure (units (unknown) date) 149/68 H 130/59 L unknown) (unknown) (no (unknown) (unknown) Blood Pressure (units (unknown) date) 149/78 H 155/70 H unknown) (unknown) (no (unknown) (unknown) Blood Pressure (units (unknown) date) 150/73 H unknown) (unknown) (no (unknown) (unknown) Blood Pressure (units (unknown) date) 151/72 H unknown) (unknown) (no (unknown) (unknown) Blood Pressure (units (unknown) date) 154/73 H unknown) (unknown) (no (unknown) (unknown) Blood Pressure (units (unknown) date) 156/72 H 151/72 H unknown) (unknown) (no (unknown) (unknown) Blood Pressure (units (unknown) date) 162/114 H unknown) (unknown) (no (unknown) (unknown) Blood Pressure (units (unknown) date) 164/94 H 164/96 H unknown) (unknown) (no (unknown) (unknown) Blood Pressure (units (unknown) date) 179/74 H 179/94 H unknown) (unknown) (no (unknown) (unknown) Blood Pressure (units (unknown) date) 186/112 H 169/75 unknown) H (unknown) (no (unknown) (unknown) Blood Pressure (units (unknown) date) unknown) (unknown) (no (unknown) (unknown) CK-MB (CK-2) Rel (units (unknown) date) Index TNP unknown) (unknown) (no (unknown) (unknown) CK-MB (CK-2) Rel (units (unknown) date) Index unknown) (unknown) (no (unknown) (unknown) CK-MB (CK-2) TNP (units (unknown) date) unknown) (unknown) (no (unknown) (unknown) CK-MB (CK-2) (units (u nknown) date) unknown) (unknown) (no (unknown) (unknown) Calcium 8.1 L (units ( unknown) date) unknown) (unknown) (no (unknown) (unknown) Calcium (units (unkno wn) date) unknown) (unknown) (no (unknown) (unknown) Carbon Dioxide (units (unknown) date) 28 unknown) (unknown) (no (unknown) (unknown) Carbon Dioxide (units (unknown) date) unknown) (unknown) (no (unknown) (unknown) Cardio: S1 + S2 (units (unknown) date) with regular rate unknown) and rhythm without murmur, rubs, or gallops, (unknown) (no (unknown) (unknown) Chest: Normal AP (units (unknown) date) diameter and unknown) contour without kyphoscoliosis, no nasal flaring, (unknown) (no (unknown) (unknown) Chief complaint: (units (unknown) date) Pain near unknown) pacemaker (unknown) (no (unknown) (unknown) Chloride 99 (units (un known) date) unknown) (unknown) (no (unknown) (unknown) Chloride (units (unkno wn) date) unknown) (unknown) (no (unknown) (unknown) Creatinine 0.99 (units (unknown) date) unknown) (unknown) (no (unknown) (unknown) Creatinine (units (unk nown) date) unknown) (unknown) (no (unknown) (unknown) Critical Care (units ( unknown) date) time: unknown) (unknown) (no (unknown) (unknown) : 1935 (units (unknown) date) Acct:[id number] unknown) (unknown) (no (unknown) (unknown) Date Patient (units (u nknown) date) Seen: 06/16/22 unknown) (unknown) (no (unknown) (unknown) Date of Service: (units (unknown) date) 06/16/22 unknown) (unknown) (no (unknown) (unknown) Yoseph Cardoso is (units (unknown) date) a 86-year-old unknown) male with a history of atrial fibrillation, with (unknown) (no (unknown) (unknown) Environment (units (un known) date) unknown) (unknown) (no (unknown) (unknown) Eos # (Auto) 0 (units (unknown) date) unknown) (unknown) (no (unknown) (unknown) Eos # (Auto) (units (u nknown) date) unknown) (unknown) (no (unknown) (unknown) Eos % (Auto) 0.1 (units (unknown) date) L unknown) (unknown) (no (unknown) (unknown) Eos % (Auto) (units (u nknown) date) unknown) (unknown) (no (unknown) (unknown) Estimated GFR > (units (unknown) date) 60 unknown) (unknown) (no (unknown) (unknown) Estimated GFR (units ( unknown) date) unknown) (unknown) (no (unknown) (unknown) Exam Narrative: (units (unknown) date) unknown) (unknown) (no (unknown) (unknown) Exam (units (unkno wn) date) unknown) (unknown) (no (unknown) (unknown) Family + Social (units (unknown) date) History unknown) (unknown) (no (unknown) (unknown) Feels Safe in (units ( unknown) date) Current Yes unknown) (unknown) (no (unknown) (unknown) Fever, jaundice, (units (unknown) date) right upper unknown) quadrant pain? (unknown) (no (unknown) (unknown) General: Patient (units (unknown) date) is a unknown) well-developed, well-nourished in no distress at this (unknown) (no (unknown) (unknown) Globulin 2.7 (units (u nknown) date) unknown) (unknown) (no (unknown) (unknown) Globulin (units (unkno wn) date) unknown) (unknown) (no (unknown) (unknown) Glucose 146 H (units ( unknown) date) unknown) (unknown) (no (unknown) (unknown) Glucose (units (unkno wn) date) unknown) (unknown) (no (unknown) (unknown) HEENT: (units (unkno wn) date) Normocephalic, unknown) atraumatic, extraocular muscles intact, oral pharynx is (unknown) (no (unknown) (unknown) Hct 46.6 (units (unkno wn) date) unknown) (unknown) (no (unknown) (unknown) Hct (units (unkno wn) date) unknown) (unknown) (no (unknown) (unknown) Hgb 15.4 (units (unkno wn) date) unknown) (unknown) (no (unknown) (unknown) Hgb (units (unkno wn) date) unknown) (unknown) (no (unknown) (unknown) History + (units (unkn own) date) Physical Report unknown) (unknown) (no (unknown) (unknown) History of (units (unk nown) date) Present Illness unknown) (unknown) (no (unknown) (unknown) History of (units (unk nown) date) melanoma unknown) (unknown) (no (unknown) (unknown) 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 (unknown) (no (unknown) (unknown) History (units (unkno wn) date) unknown) (unknown) (no (unknown) (unknown) Home Medications (units (unknown) date) and Allergies unknown) (unknown) (no (unknown) (unknown) Home Medications (units (unknown) date) unknown) (unknown) (no (unknown) (unknown) I spent a total (units (unknown) date) of [] minutes of unknown) critical care time on this patient's care (unknown) (no (unknown) (unknown) INR 1.5 H (units (unkn own) date) unknown) (unknown) (no (unknown) (unknown) INR (units (unkno wn) date) unknown) (unknown) (no (unknown) (unknown) Influenza A (units (un known) date) (RT-PCR) Flu a unknown) negative (unknown) (no (unknown) (unknown) Influenza A (units (un known) date) (RT-PCR) unknown) (unknown) (no (unknown) (unknown) Influenza B (units (un known) date) (RT-PCR) Flu b unknown) negative (unknown) (no (unknown) (unknown) Influenza B (units (un known) date) (RT-PCR) unknown) (unknown) (no (unknown) (unknown) [facility] (units (unknown) date) [address] unknown) [place] [address] (unknown) (no (unknown) (unknown) Laboratory (units (unk nown) date) Results - last 24 unknown) hr (unknown) (no (unknown) (unknown) Labs (units (unkno wn) date) unknown) (unknown) (no (unknown) (unknown) Labs: (units (unkno wn) date) unknown) (unknown) (no (unknown) (unknown) Lactate 2.7 H (units ( unknown) date) unknown) (unknown) (no (unknown) (unknown) Lactate 4.3 H* (units (unknown) date) unknown) (unknown) (no (unknown) (unknown) Lactate (units (unkno wn) date) unknown) (unknown) (no (unknown) (unknown) Lipase 45 (units (unkn own) date) unknown) (unknown) (no (unknown) (unknown) Lipase (units (unkno wn) date) unknown) (unknown) (no (unknown) (unknown) Lungs: (units (unkno wn) date) Auscultation of unknown) all lung troy are clear without adventitious sounds, (unknown) (no (unknown) (unknown) Lymph # (Auto) (units (unknown) date) 400 L unknown) (unknown) (no (unknown) (unknown) Lymph # (Auto) (units (unknown) date) unknown) (unknown) (no (unknown) (unknown) Lymph % (Auto) (units (unknown) date) 4.6 L unknown) (unknown) (no (unknown) (unknown) Lymph % (Auto) (units (unknown) date) unknown) (unknown) (no (unknown) (unknown) MCH 30.4 (units (unkno wn) date) unknown) (unknown) (no (unknown) (unknown) MCH (units (unkno wn) date) unknown) (unknown) (no (unknown) (unknown) MCHC 33.0 (units (unkn own) date) unknown) (unknown) (no (unknown) (unknown) MCHC (units (unkno wn) date) unknown) (unknown) (no (unknown) (unknown) MCV 92.4 (units (unkno wn) date) unknown) (unknown) (no (unknown) (unknown) MCV (units (unkno wn) date) unknown) (unknown) (no (unknown) (unknown) Magnesium 2.6 H (units (unknown) date) unknown) (unknown) (no (unknown) (unknown) Magnesium (units (unkn own) date) unknown) (unknown) (no (unknown) (unknown) Medical History (units (unknown) date) (Updated 06/16/22 unknown) @ 22:05 by Fernando Naylor DO) (unknown) (no (unknown) (unknown) Medication (units (unk nown) date) Instructions unknown) Recorded Confirmed Type (unknown) (no (unknown) (unknown) Meds (units (unkno wn) date) unknown) (unknown) (no (unknown) (unknown) Refugio # (Auto) (units ( unknown) date) 900 unknown) (unknown) (no (unknown) (unknown) Refugio # (Auto) (units ( unknown) date) unknown) (unknown) (no (unknown) (unknown) [place] % (Auto) (units ( unknown) date) 9.4 unknown) (unknown) (no (unknown) (unknown) [place] % (Auto) (units ( unknown) date) unknown) (unknown) (no (unknown) (unknown) Musculoskeletal: (units (unknown) date) Muscle strength unknown) and tone are equal within normal limits, no (unknown) (no (unknown) (unknown) NT-Pro-B (units (unkno wn) date) Natriuret Pep unknown) 1430 H (unknown) (no (unknown) (unknown) NT-Pro-B (units (unkno wn) date) Natriuret Pep unknown) (unknown) (no (unknown) (unknown) Narrative (units (unkn own) date) unknown) (unknown) (no (unknown) (unknown) Narrative: (units (unk nown) date) unknown) (unknown) (no (unknown) (unknown) Negative for JVD (units (unknown) date) unknown) (unknown) (no (unknown) (unknown) Neuro: Alert and (units (unknown) date) orientated x3, unknown) strength is +5/5 in all extremities, sensation (unknown) (no (unknown) (unknown) Neut # (Auto) (units ( unknown) date) 8200 H unknown) (unknown) (no (unknown) (unknown) Neut # (Auto) (units ( unknown) date) unknown) (unknown) (no (unknown) (unknown) Neut % (Auto) (units ( unknown) date) 85.1 H unknown) (unknown) (no (unknown) (unknown) Neut % (Auto) (units ( unknown) date) unknown) (unknown) (no (unknown) (unknown) Objective (units (unkn own) date) unknown) (unknown) (no (unknown) (unknown) On admit patient (units (unknown) date) denies chest unknown) pain, shortness in breath, headache, changes in (unknown) (no (unknown) (unknown) Oxygen Delivery (units (unknown) date) Method Room Air unknown) (unknown) (no (unknown) (unknown) Oxygen Delivery (units (unknown) date) Method unknown) (unknown) (no (unknown) (unknown) PT 17.6 H (units (unkn own) date) unknown) (unknown) (no (unknown) (unknown) PT (units (unkno wn) date) unknown) (unknown) (no (unknown) (unknown) Pacemaker (units (unkn own) date) unknown) (unknown) (no (unknown) (unknown) Patient History (units (unknown) date) unknown) (unknown) (no (unknown) (unknown) Patient: (units (unkno wn) date) Yoseph Cardoso unknown) MR#: [id number] (unknown) (no (unknown) (unknown) Phosphorus 4.1 H (units (unknown) date) unknown) (unknown) (no (unknown) (unknown) Phosphorus (units (unk nown) date) unknown) (unknown) (no (unknown) (unknown) Plt Count 222 (units ( unknown) date) unknown) (unknown) (no (unknown) (unknown) Plt Count (units (unkn own) date) unknown) (unknown) (no (unknown) (unknown) Potassium 4.8 (units ( unknown) date) unknown) (unknown) (no (unknown) (unknown) Potassium (units (unkn own) date) unknown) (unknown) (no (unknown) (unknown) Procalcitonin (units ( unknown) date) 3.27 H unknown) (unknown) (no (unknown) (unknown) Procalcitonin (units ( unknown) date) unknown) (unknown) (no (unknown) (unknown) Provider: (units (unkn own) date) Hawa Michael unknown) 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 (unknown) (no (unknown) (unknown) Psych: Patient (units (unknown) date) has a well-kept unknown) appearance, appropriate affect, mental status (unknown) (no (unknown) (unknown) Pulse Oximetry (units (unknown) date) 93 100 unknown) (unknown) (no (unknown) (unknown) Pulse Oximetry (units (unknown) date) 94 96 unknown) (unknown) (no (unknown) (unknown) Pulse Oximetry (units (unknown) date) 95 unknown) (unknown) (no (unknown) (unknown) Pulse Oximetry (units (unknown) date) 96 91 unknown) (unknown) (no (unknown) (unknown) Pulse Oximetry (units (unknown) date) 96 99 unknown) (unknown) (no (unknown) (unknown) Pulse Oximetry (units (unknown) date) 96 unknown) (unknown) (no (unknown) (unknown) Pulse Oximetry (units (unknown) date) 97 96 97 unknown) (unknown) (no (unknown) (unknown) Pulse Oximetry (units (unknown) date) 97 97 98 unknown) (unknown) (no (unknown) (unknown) Pulse Oximetry (units (unknown) date) 97 97 unknown) (unknown) (no (unknown) (unknown) Pulse Oximetry (units (unknown) date) 97 unknown) (unknown) (no (unknown) (unknown) Pulse Oximetry (units (unknown) date) 98 97 unknown) (unknown) (no (unknown) (unknown) Pulse Oximetry (units (unknown) date) 98 unknown) (unknown) (no (unknown) (unknown) Pulse Oximetry (units (unknown) date) unknown) (unknown) (no (unknown) (unknown) Pulse Rate 111 H (units (unknown) date) unknown) (unknown) (no (unknown) (unknown) Pulse Rate 114 H (units (unknown) date) 118 H unknown) (unknown) (no (unknown) (unknown) Pulse Rate 154 H (units (unknown) date) unknown) (unknown) (no (unknown) (unknown) Pulse Rate 72 66 (units (unknown) date) unknown) (unknown) (no (unknown) (unknown) Pulse Rate 72 71 (units (unknown) date) unknown) (unknown) (no (unknown) (unknown) Pulse Rate 72 74 (units (unknown) date) unknown) (unknown) (no (unknown) (unknown) Pulse Rate 72 (units ( unknown) date) unknown) (unknown) (no (unknown) (unknown) Pulse Rate 73 74 (units (unknown) date) unknown) (unknown) (no (unknown) (unknown) Pulse Rate 73 87 (units (unknown) date) 98 H unknown) (unknown) (no (unknown) (unknown) Pulse Rate 73 (units ( unknown) date) unknown) (unknown) (no (unknown) (unknown) Pulse Rate 74 (units ( unknown) date) 104 H 106 H unknown) (unknown) (no (unknown) (unknown) Pulse Rate 75 (units ( unknown) date) 116 H unknown) (unknown) (no (unknown) (unknown) Pulse Rate 75 70 (units (unknown) date) unknown) (unknown) (no (unknown) (unknown) Pulse Rate 75 74 (units (unknown) date) 74 unknown) (unknown) (no (unknown) (unknown) Pulse Rate 75 (units ( unknown) date) unknown) (unknown) (no (unknown) (unknown) Pulse Rate 76 (units ( unknown) date) unknown) (unknown) (no (unknown) (unknown) Pulse Rate 78 75 (units (unknown) date) unknown) (unknown) (no (unknown) (unknown) Pulse Rate 84 77 (units (unknown) date) unknown) (unknown) (no (unknown) (unknown) Pulse Rate 86 72 (units (unknown) date) unknown) (unknown) (no (unknown) (unknown) Pulse Rate 98 H (units (unknown) date) unknown) (unknown) (no (unknown) (unknown) RBC 5.05 (units (unkno wn) date) unknown) (unknown) (no (unknown) (unknown) RBC (units (unkno wn) date) unknown) (unknown) (no (unknown) (unknown) RDW 14.4 (units (unkno wn) date) unknown) (unknown) (no (unknown) (unknown) RDW (units (unkno wn) date) unknown) (unknown) (no (unknown) (unknown) RSV (PCR) (units (unkn own) date) Negative unknown) (unknown) (no (unknown) (unknown) RSV (PCR) (units (unkn own) date) unknown) (unknown) (no (unknown) (unknown) Respiratory Rate (units (unknown) date) 12 25 H unknown) (unknown) (no (unknown) (unknown) Respiratory Rate (units (unknown) date) 13 26 H unknown) (unknown) (no (unknown) (unknown) Respiratory Rate (units (unknown) date) 16 20 unknown) (unknown) (no (unknown) (unknown) Respiratory Rate (units (unknown) date) 17 26 H unknown) (unknown) (no (unknown) (unknown) Respiratory Rate (units (unknown) date) 17 unknown) (unknown) (no (unknown) (unknown) Respiratory Rate (units (unknown) date) 18 32 H unknown) (unknown) (no (unknown) (unknown) Respiratory Rate (units (unknown) date) 18 unknown) (unknown) (no (unknown) (unknown) Respiratory Rate (units (unknown) date) 19 18 unknown) (unknown) (no (unknown) (unknown) Respiratory Rate (units (unknown) date) 19 34 H 39 H unknown) (unknown) (no (unknown) (unknown) Respiratory Rate (units (unknown) date) 19 unknown) (unknown) (no (unknown) (unknown) Respiratory Rate (units (unknown) date) 20 unknown) (unknown) (no (unknown) (unknown) Respiratory Rate (units (unknown) date) 22 20 unknown) (unknown) (no (unknown) (unknown) Respiratory Rate (units (unknown) date) 23 17 16 unknown) (unknown) (no (unknown) (unknown) Respiratory Rate (units (unknown) date) 23 18 unknown) (unknown) (no (unknown) (unknown) Respiratory Rate (units (unknown) date) 24 19 unknown) (unknown) (no (unknown) (unknown) Respiratory Rate (units (unknown) date) 24 23 unknown) (unknown) (no (unknown) (unknown) Respiratory Rate (units (unknown) date) 27 H unknown) (unknown) (no (unknown) (unknown) Respiratory Rate (units (unknown) date) 29 H unknown) (unknown) (no (unknown) (unknown) Respiratory Rate (units (unknown) date) 30 H 24 unknown) (unknown) (no (unknown) (unknown) Respiratory Rate (units (unknown) date) unknown) (unknown) (no (unknown) (unknown) Review of (units (unkn own) date) Systems unknown) (unknown) (no (unknown) (unknown) SARS-CoV-2 (PCR) (units (unknown) date) Negative unknown) (unknown) (no (unknown) (unknown) SARS-CoV-2 (PCR) (units (unknown) date) unknown) (unknown) (no (unknown) (unknown) Safety + (units (unkno wn) date) Behavioral: unknown) (unknown) (no (unknown) (unknown) Signed By: (units (unk nown) date) unknown) (unknown) (no (unknown) (unknown) Skin: Warm dry (units (unknown) date) and intact unknown) without rashes, ulcerations or petechiae. (unknown) (no (unknown) (unknown) Smoking Status (units (unknown) date) Smoker, status unknown) unknown (unknown) (no (unknown) (unknown) Sodium 135 L (units (u nknown) date) unknown) (unknown) (no (unknown) (unknown) Sodium (units (unkno wn) date) unknown) (unknown) (no (unknown) (unknown) Substance Use (units ( unknown) date) Type does not use unknown) (unknown) (no (unknown) (unknown) Surgical History (units (unknown) date) (Updated 06/16/22 unknown) @ 21:27 by KASSI CrystalPJames) (unknown) (no (unknown) (unknown) Temperature 98.1 (units (unknown) date) F unknown) (unknown) (no (unknown) (unknown) Temperature (units (un known) date) unknown) (unknown) (no (unknown) (unknown) Time Patient (units (u nknown) date) Seen: 15:35 unknown) (unknown) (no (unknown) (unknown) Time Spent With (units (unknown) date) Patient unknown) (unknown) (no (unknown) (unknown) Tobacco + (units (unkn own) date) Substance use: unknown) (unknown) (no (unknown) (unknown) Total Bilirubin (units (unknown) date) 2.1 H unknown) (unknown) (no (unknown) (unknown) Total Bilirubin (units (unknown) date) unknown) (unknown) (no (unknown) (unknown) Total Creatine (units (unknown) date) Kinase 53 L unknown) (unknown) (no (unknown) (unknown) Total Creatine (units (unknown) date) Kinase unknown) (unknown) (no (unknown) (unknown) Total Protein (units ( unknown) date) 5.8 L unknown) (unknown) (no (unknown) (unknown) Total Protein (units ( unknown) date) unknown) (unknown) (no (unknown) (unknown) Troponin I < (units (u nknown) date) 0.012 unknown) (unknown) (no (unknown) (unknown) Troponin I (units (unk nown) date) unknown) (unknown) (no (unknown) (unknown) Upon admit BP (units (u nknown) date) 149/78, unknown) tachycardic heart rate 154, tachypneic R 29, O2 saturation (unknown) (no (unknown) (unknown) Ur Bilirubin (units (u nknown) date) Confirm Positive unknown) H (unknown) (no (unknown) (unknown) Ur Bilirubin (units (u nknown) date) Confirm unknown) (unknown) (no (unknown) (unknown) Ur Culture (units (unk nown) date) Indicated? unknown) Specimen cultured (unknown) (no (unknown) (unknown) Ur Culture (units (unk nown) date) Indicated? unknown) (unknown) (no (unknown) (unknown) Ur Leukocyte (units (u nknown) date) Esterase Trace H unknown) (unknown) (no (unknown) (unknown) Ur Leukocyte (units (u nknown) date) Esterase unknown) (unknown) (no (unknown) (unknown) Ur Specific (units (un known) date) [place] 1.020 unknown) (unknown) (no (unknown) (unknown) Ur Specific (units (un known) date) [place] unknown) (unknown) (no (unknown) (unknown) Ur Squamous (units (un known) date) Epith Cells 1-5 unknown) /hpf (unknown) (no (unknown) (unknown) Ur Squamous (units (un known) date) Epith Cells unknown) (unknown) (no (unknown) (unknown) Urine Appearance (units (unknown) date) Cloudy unknown) (unknown) (no (unknown) (unknown) Urine Appearance (units (unknown) date) unknown) (unknown) (no (unknown) (unknown) Urine Bacteria (units (unknown) date) None seen unknown) (unknown) (no (unknown) (unknown) Urine Bacteria (units (unknown) date) unknown) (unknown) (no (unknown) (unknown) Urine Bilirubin (units (unknown) date) 3+ H unknown) (unknown) (no (unknown) (unknown) Urine Bilirubin (units (unknown) date) unknown) (unknown) (no (unknown) (unknown) Urine Color (units (un known) date) Brown unknown) (unknown) (no (unknown) (unknown) Urine Color (units (un known) date) unknown) (unknown) (no (unknown) (unknown) Urine Glucose (units ( unknown) date) (UA) Negative unknown) (unknown) (no (unknown) (unknown) Urine Glucose (units ( unknown) date) (UA) unknown) (unknown) (no (unknown) (unknown) Urine Ketones 1+ (units (unknown) date) H unknown) (unknown) (no (unknown) (unknown) Urine Ketones (units ( unknown) date) unknown) (unknown) (no (unknown) (unknown) Urine Nitrate (units ( unknown) date) Positive H unknown) (unknown) (no (unknown) (unknown) Urine Nitrate (units ( unknown) date) unknown) (unknown) (no (unknown) (unknown) Urine Occult (units (u nknown) date) Blood unknown) Trace-intact (unknown) (no (unknown) (unknown) Urine Occult (units (u nknown) date) Blood unknown) (unknown) (no (unknown) (unknown) Urine Protein 1+ (units (unknown) date) H unknown) (unknown) (no (unknown) (unknown) Urine Protein (units ( unknown) date) unknown) (unknown) (no (unknown) (unknown) Urine RBC (units (unkn own) date) 10-30/hpf H unknown) (unknown) (no (unknown) (unknown) Urine RBC (units (unkn own) date) unknown) (unknown) (no (unknown) (unknown) Urine (units (unkno wn) date) Urobilinogen 1.0 unknown) (unknown) (no (unknown) (unknown) Urine (units (unkno wn) date) Urobilinogen unknown) (unknown) (no (unknown) (unknown) Urine WBC (units (unkn own) date) 1-5/hpf unknown) (unknown) (no (unknown) (unknown) Urine WBC (units (unkn own) date) unknown) (unknown) (no (unknown) (unknown) Urine pH 6.5 (units (u nknown) date) unknown) (unknown) (no (unknown) (unknown) Urine pH (units (unkno wn) date) unknown) (unknown) (no (unknown) (unknown) Vital Signs (units (un known) date) unknown) (unknown) (no (unknown) (unknown) WBC 9.6 (units (unkno wn) date) unknown) (unknown) (no (unknown) (unknown) WBC (units (unkno wn) date) unknown) (unknown) (no (unknown) (unknown) [Embedded Image (units (unknown) date) Not Available] unknown) (unknown) (no (unknown) (unknown) [From Prevnar] (units (unknown) date) and feet x unknown) (unknown) (no (unknown) (unknown) abnormal. COVID, (units (unknown) date) influenza a/B/RSV unknown) negative. Head CT negative. CXR ?Possible (unknown) (no (unknown) (unknown) after. (units (unkno wn) date) unknown) (unknown) (no (unknown) (unknown) alcohol intake (units (unknown) date) frequency a few unknown) times a month (unknown) (no (unknown) (unknown) amlodipine 5 mg (units (unknown) date) tablet 5 mg PO unknown) DAILY 06/16/22 06/16/22 History (unknown) (no (unknown) (unknown) apixaban 5 mg (units ( unknown) date) tablet (Eliquis) unknown) 5 mg PO BID blood thinner 06/16/22 06/16/22 (unknown) (no (unknown) (unknown) are present in (units (unknown) date) all 4 quadrants unknown) without guarding or rebound, no CVA tenderness. (unknown) (no (unknown) (unknown) attitude thought (units (unknown) date) context and unknown) judgment are appropriate for age. (unknown) (no (unknown) (unknown) because he had (units (unknown) date) black urine this unknown) morning'. He did not recall seeing Dr. Gillette, (unknown) (no (unknown) (unknown) clear and mucous (units (unknown) date) membranes are unknown) moist. 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 Full range (unknown) (no (unknown) (unknown) documented. (units (un known) date) unknown) (unknown) (no (unknown) (unknown) due to his (units (unk nown) date) significant unknown) presentation of cachexia, weakness, malaise balance (unknown) (no (unknown) (unknown) due to his (units (unk nown) date) significant unknown) presentation of cachexia, weakness, malaise, balance (unknown) (no (unknown) (unknown) dysuria, (units (unkno wn) date) frequency, unknown) urgency, hematuria, bowel changes, constipation, (unknown) (no (unknown) (unknown) falls, head (units (un known) date) injury, LOC, unknown) fever, body aches, chills, cough, recent exposure to (unknown) (no (unknown) (unknown) fluticasone (units (un known) date) propionate 44 44 unknown) mcg inhalation DAILY 06/16/22 06/16/22 History (unknown) (no (unknown) (unknown) gabapentin 300 (units (unknown) date) mg capsule 300 mg unknown) PO BID 06/16/22 06/16/22 History (unknown) (no (unknown) (unknown) greater than (units (u nknown) date) left pulmonary unknown) effusion. SOFA:2 patient admitted for mild sepsis, (unknown) (no (unknown) (unknown) heart rates (units (un known) date) 111-154, and unknown) tachypneic respiratory rate in the 20s. During admit (unknown) (no (unknown) (unknown) illness, (units (unkno wn) date) abdominal pain, unknown) nausea, vomiting, urinary incontinence/rete ntion, (unknown) (no (unknown) (unknown) incontinence, (units ( unknown) date) melena, rashes, unknown) recent changes to medication, illness, injury, or (unknown) (no (unknown) (unknown) infiltrates (units (un known) date) versus unknown) inflammatory pulmonary opacities mild to moderate right (unknown) (no (unknown) (unknown) interview (units (unkn own) date) patient is a poor unknown) historian, stated that 'he came in today by himself (unknown) (no (unknown) (unknown) into the ED by (units (unknown) date) his . In ED unknown) patient demonstrated escalating tachycardia with (unknown) (no (unknown) (unknown) into the ED by (units (unknown) date) his . Patient unknown) demonstrated escalating tachycardia with heart (unknown) (no (unknown) (unknown) mcg/actuation (units ( unknown) date) HFA aerosol unknown) inhaler (unknown) (no (unknown) (unknown) midline, no (units (un known) date) adenopathy, no unknown) thyroid enlargement, nontender, no masses palpated. (unknown) (no (unknown) (unknown) mild right and (units (unknown) date) retrocardiac unknown) opacities Chest CT demonstrated bibasilar (unknown) (no (unknown) (unknown) negative, BNP (units ( unknown) date) 1430. EKG atrial unknown) sensed ventricular paced rhythm rate 72, (unknown) (no (unknown) (unknown) no carotid (units (unk nown) date) bruit, no cardiac unknown) pulsations present. (unknown) (no (unknown) (unknown) no distress at (units (unknown) date) this time. unknown) (unknown) (no (unknown) (unknown) obtain HPI, ROS, (units (unknown) date) or medication unknown) reconciliation. Patient denies any pain, and is (unknown) (no (unknown) (unknown) of motion intact (units (unknown) date) radial and pedal unknown) pulses are normal. 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 Gillette cardiology's office (unknown) (no (unknown) (unknown) pneumococcal (units (u nknown) date) 7-valent AdvReac unknown) Intermediate swelling Verified 06/16/22 12:46 (unknown) (no (unknown) (unknown) rates 111-154, (units (unknown) date) and tachypneic unknown) respiratory rate in the 20s. (unknown) (no (unknown) (unknown) retractions, or (units (unknown) date) tachypneic unknown) labored (unknown) (no (unknown) (unknown) time. (units (unkno wn) date) unknown) (unknown) (no (unknown) (unknown) to touch intact, (units (unknown) date) no gross deficits unknown) noted of cranial nerves. (unknown) (no (unknown) (unknown) today; this time (units (unknown) date) is exclusive of unknown) procedural time. (unknown) (no (unknown) (unknown) transaminitis, (units (unknown) date) UTI, elevated unknown) phosphorus. (unknown) (no (unknown) (unknown) trauma. (units (unkno wn) date) unknown) (unknown) (no (unknown) (unknown) unsure if this (units (unknown) date) is the patient's unknown) baseline. Due to cognitive impairment unable to (unknown) (no (unknown) (unknown) vision, (units (unkno wn) date) difficulty unknown) swallowing, speech impairment, numbness, tingling, recent (unknown) (no (unknown) (unknown) weight loss, and (units (unknown) date) night sweats with unknown) a shuffling gait x6 weeks. He was brought (unknown) (no (unknown) (unknown) wheezes, (units (unkno wn) date) rhonchi, or unknown) rales. Result panel 214 (unknown) (no (unknown) (unknown) (no value) (units (unk nown) date) unknown) (unknown) (no (unknown) (unknown) [id number] (units (unkno wn) date) unknown) (unknown) (no (unknown) (unknown) 06/17/22 (units (unkno wn) date) unknown) (unknown) (no (unknown) (unknown) [address] [place] [address] (units (unknown) date) unknown) (unknown) (no (unknown) (unknown) Accession Number: (units (unknown) date) [id number] unknown) (unknown) (no (unknown) (unknown) Age/Sex: 86 / M (units (unknown) date) Date of Service: unknown) (unknown) (no (unknown) (unknown) [place], [place] (units ( unknown) date) [id number] unknown) (unknown) (no (unknown) (unknown) Approved by: Feliberto (units (unknown) date) Azar Mendoza on unknown) 06/17/2022 at 10:08 (unknown) (no (unknown) (unknown) Biliary ducts: (units (unknown) date) Intrahepatic bile unknown) ducts are non-dilated. Extrahepatic bile (unknown) (no (unknown) (unknown) COMPARISON: (units (un known) date) [facility], unknown) CT, CT ABDOMEN PELVIS W CON, 06/16/2022, 21:22. (unknown) (no (unknown) (unknown) CT 06/16/2019 (units ( unknown) date) unknown) (unknown) (no (unknown) (unknown) : 1935 (units (unknown) date) Acct:[id number] unknown) (unknown) (no (unknown) (unknown) Diffusely (units (unkn own) date) heterogenous unknown) hepatic parenchyma is consistent with findings on the (unknown) (no (unknown) (unknown) FINDINGS: (units (unkn own) date) unknown) (unknown) (no (unknown) (unknown) Gallbladder: (units (u nknown) date) Biliary sludge unknown) present without shadowing calculi. There is (unknown) (no (unknown) (unknown) IMPRESSION: (units (un known) date) unknown) (unknown) (no (unknown) (unknown) INDICATIONS: (units (u nknown) date) POSSIBLE LIVER unknown) METS (unknown) (no (unknown) (unknown) [facility] (units (unknown) date) unknown) (unknown) (no (unknown) (unknown) Liver: Liver is (units (unknown) date) diffusely unknown) echogenic in heterogenous without focal obvious (unknown) (no (unknown) (unknown) Loc: AC 206-1 (units ( unknown) date) unknown) (unknown) (no (unknown) (unknown) Miscellaneous: No (units (unknown) date) free abdominal unknown) fluid. (unknown) (no (unknown) (unknown) Nonspecific (units (un known) date) gallbladder wall unknown) thickening without cholelithiasis (unknown) (no (unknown) (unknown) Ordering (units (unkno wn) date) Provider: unknown) Hawa Michael-BC (unknown) (no (unknown) (unknown) PROCEDURE: US (units ( unknown) date) ABDOMEN LIMITED unknown) (unknown) (no (unknown) (unknown) Pancreas: (units (unkn own) date) Nonvisualized unknown) (unknown) (no (unknown) (unknown) Patent pedal (units (u nknown) date) flows noted in the unknown) main portal vein (unknown) (no (unknown) (unknown) Patient: (units (unkno wn) date) Yoseph Cardoso G unknown) MR#: [id number] (unknown) (no (unknown) (unknown) Procedure: US (units ( unknown) date) abdomen limited unknown) (unknown) (no (unknown) (unknown) Real-time (units (unkn own) date) scanning was unknown) performed of the abdominal and retroperitoneal organs, (unknown) (no (unknown) (unknown) Signed (units (unkno wn) date) unknown) (unknown) (no (unknown) (unknown) TECHNIQUE: (units (unk nown) date) unknown) (unknown) (no (unknown) (unknown) Ultrasound Report (units (unknown) date) unknown) (unknown) (no (unknown) (unknown) concurrent (units (unk nown) date) unknown) (unknown) (no (unknown) (unknown) documentation. (units (unknown) date) unknown) (unknown) (no (unknown) (unknown) duct caliber (units (u nknown) date) unknown) (unknown) (no (unknown) (unknown) gallbladder (units (un known) date) unknown) (unknown) (no (unknown) (unknown) measures 4.5 mm. (units (unknown) date) Normal is 6-7 mm unknown) or less in diameter, or 10 mm or less (unknown) (no (unknown) (unknown) nodule. (units (unkno wn) date) unknown) (unknown) (no (unknown) (unknown) post-cholecystect (units (unknown) date) cristi. unknown) (unknown) (no (unknown) (unknown) wall thickening (units (unknown) date) up to 6.4 mm unknown) associated with trace pericholecystic fluid. (unknown) (no (unknown) (unknown) with image (units (unk nown) date) unknown) Result panel 215 (unknown) (no (unknown) (unknown) (no value) (units (unk nown) date) unknown) (unknown) (no (unknown) (unknown) (Flovent HFA) (units ( unknown) date) unknown) (unknown) (no (unknown) (unknown) (past 8 hours): (units (unknown) date) unknown) (unknown) (no (unknown) (unknown) [id number] (units (unkno wn) date) unknown) (unknown) (no (unknown) (unknown) 06/16/22 (units (unkno wn) date) 06/16/22 06/16/22 unknown) (unknown) (no (unknown) (unknown) 06/16/22 (units (unkno wn) date) 06/16/22 unknown) (unknown) (no (unknown) (unknown) 06/16/22 12:35 (units (unknown) date) unknown) (unknown) (no (unknown) (unknown) 06/16/22 (units (unkno wn) date) unknown) (unknown) (no (unknown) (unknown) 12:35 12:35 (units (un known) date) 12:35 unknown) (unknown) (no (unknown) (unknown) 13:15 06/16/22 (units (unknown) date) unknown) (unknown) (no (unknown) (unknown) 13:30 (units (unkno wn) date) unknown) (unknown) (no (unknown) (unknown) 13:45 06/16/22 (units (unknown) date) unknown) (unknown) (no (unknown) (unknown) 13:46 06/16/22 (units (unknown) date) unknown) (unknown) (no (unknown) (unknown) 13:46 (units (unkno wn) date) unknown) (unknown) (no (unknown) (unknown) 14:00 06/16/22 (units (unknown) date) unknown) (unknown) (no (unknown) (unknown) 14:24 (units (unkno wn) date) unknown) (unknown) (no (unknown) (unknown) 14:30 06/16/22 (units (unknown) date) unknown) (unknown) (no (unknown) (unknown) 14:45 06/16/22 (units (unknown) date) unknown) (unknown) (no (unknown) (unknown) 15:00 (units (unkno wn) date) unknown) (unknown) (no (unknown) (unknown) 15:15 06/16/22 (units (unknown) date) unknown) (unknown) (no (unknown) (unknown) 15:30 06/16/22 (units (unknown) date) unknown) (unknown) (no (unknown) (unknown) 15:30 17:55 (units (un known) date) unknown) (unknown) (no (unknown) (unknown) 15:34 06/16/22 (units (unknown) date) unknown) (unknown) (no (unknown) (unknown) 15:34 (units (unkno wn) date) unknown) (unknown) (no (unknown) (unknown) 15:45 06/16/22 (units (unknown) date) unknown) (unknown) (no (unknown) (unknown) 15:45 (units (unkno wn) date) unknown) (unknown) (no (unknown) (unknown) 16:00 06/16/22 (units (unknown) date) unknown) (unknown) (no (unknown) (unknown) 16:15 06/16/22 (units (unknown) date) unknown) (unknown) (no (unknown) (unknown) 16:15 (units (unkno wn) date) unknown) (unknown) (no (unknown) (unknown) 16:30 06/16/22 (units (unknown) date) unknown) (unknown) (no (unknown) (unknown) 16:31 06/16/22 (units (unknown) date) unknown) (unknown) (no (unknown) (unknown) 16:31 (units (unkno wn) date) unknown) (unknown) (no (unknown) (unknown) 16:45 06/16/22 (units (unknown) date) unknown) (unknown) (no (unknown) (unknown) 17:00 06/16/22 (units (unknown) date) unknown) (unknown) (no (unknown) (unknown) 17:00 (units (unkno wn) date) unknown) (unknown) (no (unknown) (unknown) 17:15 06/16/22 (units (unknown) date) unknown) (unknown) (no (unknown) (unknown) 17:15 (units (unkno wn) date) unknown) (unknown) (no (unknown) (unknown) 17:30 06/16/22 (units (unknown) date) unknown) (unknown) (no (unknown) (unknown) 17:45 (units (unkno wn) date) unknown) (unknown) (no (unknown) (unknown) 17:46 06/16/22 (units (unknown) date) unknown) (unknown) (no (unknown) (unknown) 17:59 (units (unkno wn) date) unknown) (unknown) (no (unknown) (unknown) 18:00 06/16/22 (units (unknown) date) unknown) (unknown) (no (unknown) (unknown) 18:01 06/16/22 (units (unknown) date) unknown) (unknown) (no (unknown) (unknown) 18:15 06/16/22 (units (unknown) date) unknown) (unknown) (no (unknown) (unknown) 18:15 (units (unkno wn) date) unknown) (unknown) (no (unknown) (unknown) 18:30 06/16/22 (units (unknown) date) unknown) (unknown) (no (unknown) (unknown) 18:30 (units (unkno wn) date) unknown) (unknown) (no (unknown) (unknown) 18:45 06/16/22 (units (unknown) date) unknown) (unknown) (no (unknown) (unknown) 19:00 06/16/22 (units (unknown) date) unknown) (unknown) (no (unknown) (unknown) 19:00 (units (unkno wn) date) unknown) (unknown) (no (unknown) (unknown) 19:15 06/16/22 (units (unknown) date) unknown) (unknown) (no (unknown) (unknown) 19:15 (units (unkno wn) date) unknown) (unknown) (no (unknown) (unknown) 19:30 06/16/22 (units (unknown) date) unknown) (unknown) (no (unknown) (unknown) 19:45 06/16/22 (units (unknown) date) unknown) (unknown) (no (unknown) (unknown) 19:45 (units (unkno wn) date) unknown) (unknown) (no (unknown) (unknown) 20:00 06/16/22 (units (unknown) date) unknown) (unknown) (no (unknown) (unknown) 20:00 (units (unkno wn) date) unknown) (unknown) (no (unknown) (unknown) 20:15 06/16/22 (units (unknown) date) unknown) (unknown) (no (unknown) (unknown) 20:30 02/24/23 (units (unknown) date) unknown) (unknown) (no (unknown) (unknown) 20:30 (units (unkno wn) date) unknown) (unknown) (no (unknown) (unknown) 20:45 06/16/22 (units (unknown) date) unknown) (unknown) (no (unknown) (unknown) 20:46 06/16/22 (units (unknown) date) unknown) (unknown) (no (unknown) (unknown) 20:46 (units (unkno wn) date) unknown) (unknown) (no (unknown) (unknown) 20:55 (units (unkno wn) date) unknown) (unknown) (no (unknown) (unknown) 20s. During (units (un known) date) admit interview unknown) patient is pleasantly confused but a very poor (unknown) (no (unknown) (unknown) 34, glucose 146, (units (unknown) date) calcium 8.1, unknown) magnesium 2.6, phosphorus 4.1, bili 2.1, AST 61, (unknown) (no (unknown) (unknown) 4 mos (units (unkno wn) date) unknown) (unknown) (no (unknown) (unknown) 4.3, repeat 2.7, (units (unknown) date) procalcitonin unknown) 3.27, PT 17.6, INR 1.5, PTT 38. Sodium 135, BUN (unknown) (no (unknown) (unknown) 98% on room air. (units (unknown) date) Patient has no unknown) WBC, but left shiftneut 8200, initial lactate (unknown) (no (unknown) (unknown) ALT 63 H (units (unkno wn) date) unknown) (unknown) (no (unknown) (unknown) ALT 63, alk-phos (units (unknown) date) 428, total unknown) protein 5.8, albumin 3.1, CK 53, initial troponin (unknown) (no (unknown) (unknown) ALT (units (unkno wn) date) unknown) (unknown) (no (unknown) (unknown) APTT 38 H (units (unkn own) date) unknown) (unknown) (no (unknown) (unknown) APTT (units (unkno wn) date) unknown) (unknown) (no (unknown) (unknown) AST 61 H (units (unkno wn) date) unknown) (unknown) (no (unknown) (unknown) AST (units (unkno wn) date) unknown) (unknown) (no (unknown) (unknown) Abdomen: Soft (units ( unknown) date) nontender, unknown) negative for organomegaly, or masses. Bowel sounds (unknown) (no (unknown) (unknown) Age/Sex: 86 / M (units (unknown) date) unknown) (unknown) (no (unknown) (unknown) Albumin 3.1 L (units ( unknown) date) unknown) (unknown) (no (unknown) (unknown) Albumin (units (unkno wn) date) unknown) (unknown) (no (unknown) (unknown) Albumin/Globulin (units (unknown) date) Ratio 1.1 unknown) (unknown) (no (unknown) (unknown) Albumin/Globulin (units (unknown) date) Ratio unknown) (unknown) (no (unknown) (unknown) Alkaline (units (unkno wn) date) Phosphatase 428 H unknown) (unknown) (no (unknown) (unknown) Alkaline (units (unkno wn) date) Phosphatase unknown) (unknown) (no (unknown) (unknown) All 12 point (units (un known) date) systems reviewed unknown) with the patient and are negative except otherwise (unknown) (no (unknown) (unknown) Allergies (units (unkn own) date) unknown) (unknown) (no (unknown) (unknown) Allergy/AdvReac (units (unknown) date) Type Severity unknown) Reaction Status Date / Time (unknown) (no (unknown) (unknown) Assessment + (units (u nknown) date) Plan narrative: unknown) (unknown) (no (unknown) (unknown) Assessment + (units (u nknown) date) Plan unknown) (unknown) (no (unknown) (unknown) Atrial (units (unkno wn) date) fibrillation unknown) (unknown) (no (unknown) (unknown) BUN 34 H (units (unkno wn) date) unknown) (unknown) (no (unknown) (unknown) BUN (units (unkno wn) date) unknown) (unknown) (no (unknown) (unknown) BUN/Creatinine (units (unknown) date) Ratio 34.3 H unknown) (unknown) (no (unknown) (unknown) BUN/Creatinine (units (unknown) date) Ratio unknown) (unknown) (no (unknown) (unknown) Baso # (Auto) (units ( unknown) date) 100 unknown) (unknown) (no (unknown) (unknown) Baso # (Auto) (units ( unknown) date) unknown) (unknown) (no (unknown) (unknown) Baso % (Auto) (units ( unknown) date) 0.8 unknown) (unknown) (no (unknown) (unknown) Baso % (Auto) (units ( unknown) date) unknown) (unknown) (no (unknown) (unknown) Blood Pressure (units (unknown) date) 141/57 H unknown) (unknown) (no (unknown) (unknown) Blood Pressure (units (unknown) date) 141/73 H unknown) (unknown) (no (unknown) (unknown) Blood Pressure (units (unknown) date) 142/65 H 156/70 H unknown) (unknown) (no (unknown) (unknown) Blood Pressure (units (unknown) date) 142/67 H unknown) (unknown) (no (unknown) (unknown) Blood Pressure (units (unknown) date) 143/67 H unknown) (unknown) (no (unknown) (unknown) Blood Pressure (units (unknown) date) 145/69 H unknown) (unknown) (no (unknown) (unknown) Blood Pressure (units (unknown) date) 146/69 H unknown) (unknown) (no (unknown) (unknown) Blood Pressure (units (unknown) date) 147/71 H 150/72 H unknown) (unknown) (no (unknown) (unknown) Blood Pressure (units (unknown) date) 149/68 H 130/59 L unknown) (unknown) (no (unknown) (unknown) Blood Pressure (units (unknown) date) 149/78 H 155/70 H unknown) (unknown) (no (unknown) (unknown) Blood Pressure (units (unknown) date) 150/73 H unknown) (unknown) (no (unknown) (unknown) Blood Pressure (units (unknown) date) 151/72 H unknown) (unknown) (no (unknown) (unknown) Blood Pressure (units (unknown) date) 154/73 H unknown) (unknown) (no (unknown) (unknown) Blood Pressure (units (unknown) date) 156/72 H 151/72 H unknown) (unknown) (no (unknown) (unknown) Blood Pressure (units (unknown) date) 162/114 H unknown) (unknown) (no (unknown) (unknown) Blood Pressure (units (unknown) date) 164/94 H 164/96 H unknown) (unknown) (no (unknown) (unknown) Blood Pressure (units (unknown) date) 179/74 H 179/94 H unknown) (unknown) (no (unknown) (unknown) Blood Pressure (units (unknown) date) 186/112 H 169/75 unknown) H (unknown) (no (unknown) (unknown) Blood Pressure (units (unknown) date) unknown) (unknown) (no (unknown) (unknown) CK-MB (CK-2) Rel (units (unknown) date) Index TNP unknown) (unknown) (no (unknown) (unknown) CK-MB (CK-2) Rel (units (unknown) date) Index unknown) (unknown) (no (unknown) (unknown) CK-MB (CK-2) TNP (units (unknown) date) unknown) (unknown) (no (unknown) (unknown) CK-MB (CK-2) (units (u nknown) date) unknown) (unknown) (no (unknown) (unknown) Calcium 8.1 L (units ( unknown) date) unknown) (unknown) (no (unknown) (unknown) Calcium (units (unkno wn) date) unknown) (unknown) (no (unknown) (unknown) Carbon Dioxide (units (unknown) date) 28 unknown) (unknown) (no (unknown) (unknown) Carbon Dioxide (units (unknown) date) unknown) (unknown) (no (unknown) (unknown) Cardio: S1 + S2 (units (unknown) date) with regular rate unknown) and rhythm without murmur, rubs, or gallops, (unknown) (no (unknown) (unknown) Chest: Normal AP (units (unknown) date) diameter and unknown) contour without kyphoscoliosis, no nasal flaring, (unknown) (no (unknown) (unknown) Chief complaint: (units (unknown) date) Pain near unknown) pacemaker (unknown) (no (unknown) (unknown) Chloride 99 (units (un known) date) unknown) (unknown) (no (unknown) (unknown) Chloride (units (unkno wn) date) unknown) (unknown) (no (unknown) (unknown) Creatinine 0.99 (units (unknown) date) unknown) (unknown) (no (unknown) (unknown) Creatinine (units (unk nown) date) unknown) (unknown) (no (unknown) (unknown) Critical Care (units ( unknown) date) time: unknown) (unknown) (no (unknown) (unknown) : 1935 (units (unknown) date) Acct:[id number] unknown) (unknown) (no (unknown) (unknown) Date Patient (units (u nknown) date) Seen: 06/16/22 unknown) (unknown) (no (unknown) (unknown) Date of Service: (units (unknown) date) 06/16/22 unknown) (unknown) (no (unknown) (unknown) Yoseph Cardoso is (units (unknown) date) a 86-year-old unknown) male with a history of atrial fibrillation, with (unknown) (no (unknown) (unknown) Environment (units (un known) date) unknown) (unknown) (no (unknown) (unknown) Eos # (Auto) 0 (units (unknown) date) unknown) (unknown) (no (unknown) (unknown) Eos # (Auto) (units (u nknown) date) unknown) (unknown) (no (unknown) (unknown) Eos % (Auto) 0.1 (units (unknown) date) L unknown) (unknown) (no (unknown) (unknown) Eos % (Auto) (units (u nknown) date) unknown) (unknown) (no (unknown) (unknown) Estimated GFR > (units (unknown) date) 60 unknown) (unknown) (no (unknown) (unknown) Estimated GFR (units ( unknown) date) unknown) (unknown) (no (unknown) (unknown) Exam Narrative: (units (unknown) date) unknown) (unknown) (no (unknown) (unknown) Exam (units (unkno wn) date) unknown) (unknown) (no (unknown) (unknown) Family + Social (units (unknown) date) History unknown) (unknown) (no (unknown) (unknown) Feels Safe in (units ( unknown) date) Current Yes unknown) (unknown) (no (unknown) (unknown) Fever, jaundice, (units (unknown) date) right upper unknown) quadrant pain? (unknown) (no (unknown) (unknown) General: Patient (units (unknown) date) is a unknown) well-developed, well-nourished in no distress at this (unknown) (no (unknown) (unknown) Globulin 2.7 (units (u nknown) date) unknown) (unknown) (no (unknown) (unknown) Globulin (units (unkno wn) date) unknown) (unknown) (no (unknown) (unknown) Glucose 146 H (units ( unknown) date) unknown) (unknown) (no (unknown) (unknown) Glucose (units (unkno wn) date) unknown) (unknown) (no (unknown) (unknown) HEENT: (units (unkno wn) date) Normocephalic, unknown) atraumatic, extraocular muscles intact, oral pharynx is (unknown) (no (unknown) (unknown) Hct 46.6 (units (unkno wn) date) unknown) (unknown) (no (unknown) (unknown) Hct (units (unkno wn) date) unknown) (unknown) (no (unknown) (unknown) Hgb 15.4 (units (unkno wn) date) unknown) (unknown) (no (unknown) (unknown) Hgb (units (unkno wn) date) unknown) (unknown) (no (unknown) (unknown) History + (units (unkn own) date) Physical Report unknown) (unknown) (no (unknown) (unknown) History of (units (unk nown) date) Present Illness unknown) (unknown) (no (unknown) (unknown) History of (units (unk nown) date) melanoma unknown) (unknown) (no (unknown) (unknown) 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 (unknown) (no (unknown) (unknown) History (units (unkno wn) date) unknown) (unknown) (no (unknown) (unknown) Home Medications (units (unknown) date) and Allergies unknown) (unknown) (no (unknown) (unknown) Home Medications (units (unknown) date) unknown) (unknown) (no (unknown) (unknown) I spent a total (units (unknown) date) of [] minutes of unknown) critical care time on this patient's care (unknown) (no (unknown) (unknown) INR 1.5 H (units (unkn own) date) unknown) (unknown) (no (unknown) (unknown) INR (units (unkno wn) date) unknown) (unknown) (no (unknown) (unknown) Influenza A (units (un known) date) (RT-PCR) Flu a unknown) negative (unknown) (no (unknown) (unknown) Influenza A (units (un known) date) (RT-PCR) unknown) (unknown) (no (unknown) (unknown) Influenza B (units (un known) date) (RT-PCR) Flu b unknown) negative (unknown) (no (unknown) (unknown) Influenza B (units (un known) date) (RT-PCR) unknown) (unknown) (no (unknown) (unknown) [facility] (units (unknown) date) [address] unknown) [place] [address] (unknown) (no (unknown) (unknown) Laboratory (units (unk nown) date) Results - last 24 unknown) hr (unknown) (no (unknown) (unknown) Labs (units (unkno wn) date) unknown) (unknown) (no (unknown) (unknown) Labs: (units (unkno wn) date) unknown) (unknown) (no (unknown) (unknown) Lactate 2.7 H (units ( unknown) date) unknown) (unknown) (no (unknown) (unknown) Lactate 4.3 H* (units (unknown) date) unknown) (unknown) (no (unknown) (unknown) Lactate (units (unkno wn) date) unknown) (unknown) (no (unknown) (unknown) Lipase 45 (units (unkn own) date) unknown) (unknown) (no (unknown) (unknown) Lipase (units (unkno wn) date) unknown) (unknown) (no (unknown) (unknown) Lungs: (units (unkno wn) date) Auscultation of unknown) all lung troy are clear without adventitious sounds, (unknown) (no (unknown) (unknown) Lymph # (Auto) (units (unknown) date) 400 L unknown) (unknown) (no (unknown) (unknown) Lymph # (Auto) (units (unknown) date) unknown) (unknown) (no (unknown) (unknown) Lymph % (Auto) (units (unknown) date) 4.6 L unknown) (unknown) (no (unknown) (unknown) Lymph % (Auto) (units (unknown) date) unknown) (unknown) (no (unknown) (unknown) MCH 30.4 (units (unkno wn) date) unknown) (unknown) (no (unknown) (unknown) MCH (units (unkno wn) date) unknown) (unknown) (no (unknown) (unknown) MCHC 33.0 (units (unkn own) date) unknown) (unknown) (no (unknown) (unknown) MCHC (units (unkno wn) date) unknown) (unknown) (no (unknown) (unknown) MCV 92.4 (units (unkno wn) date) unknown) (unknown) (no (unknown) (unknown) MCV (units (unkno wn) date) unknown) (unknown) (no (unknown) (unknown) Magnesium 2.6 H (units (unknown) date) unknown) (unknown) (no (unknown) (unknown) Magnesium (units (unkn own) date) unknown) (unknown) (no (unknown) (unknown) Medical History (units (unknown) date) (Updated 06/16/22 unknown) @ 22:05 by Fernando Naylor DO) (unknown) (no (unknown) (unknown) Medication (units (unk nown) date) Instructions unknown) Recorded Confirmed Type (unknown) (no (unknown) (unknown) Meds (units (unkno wn) date) unknown) (unknown) (no (unknown) (unknown) [place] # (Auto) (units ( unknown) date) 900 unknown) (unknown) (no (unknown) (unknown) [place]io # (Auto) (units ( unknown) date) unknown) (unknown) (no (unknown) (unknown) [place] % (Auto) (units ( unknown) date) 9.4 unknown) (unknown) (no (unknown) (unknown) [place]io % (Auto) (units ( unknown) date) unknown) (unknown) (no (unknown) (unknown) Musculoskeletal: (units (unknown) date) Muscle strength unknown) and tone are equal within normal limits, no (unknown) (no (unknown) (unknown) NT-Pro-B (units (unkno wn) date) Natriuret Pep unknown) 1430 H (unknown) (no (unknown) (unknown) NT-Pro-B (units (unkno wn) date) Natriuret Pep unknown) (unknown) (no (unknown) (unknown) Narrative (units (unkn own) date) unknown) (unknown) (no (unknown) (unknown) Narrative: (units (unk nown) date) unknown) (unknown) (no (unknown) (unknown) Negative for JVD (units (unknown) date) unknown) (unknown) (no (unknown) (unknown) Neuro: Alert and (units (unknown) date) orientated x3, unknown) strength is +5/5 in all extremities, sensation (unknown) (no (unknown) (unknown) Neut # (Auto) (units ( unknown) date) 8200 H unknown) (unknown) (no (unknown) (unknown) Neut # (Auto) (units ( unknown) date) unknown) (unknown) (no (unknown) (unknown) Neut % (Auto) (units ( unknown) date) 85.1 H unknown) (unknown) (no (unknown) (unknown) Neut % (Auto) (units ( unknown) date) unknown) (unknown) (no (unknown) (unknown) Objective (units (unkn own) date) unknown) (unknown) (no (unknown) (unknown) On admit patient (units (unknown) date) denies chest unknown) pain, shortness in breath, headache, changes in (unknown) (no (unknown) (unknown) Oxygen Delivery (units (unknown) date) Method Room Air unknown) (unknown) (no (unknown) (unknown) Oxygen Delivery (units (unknown) date) Method unknown) (unknown) (no (unknown) (unknown) PT 17.6 H (units (unkn own) date) unknown) (unknown) (no (unknown) (unknown) PT (units (unkno wn) date) unknown) (unknown) (no (unknown) (unknown) Pacemaker (units (unkn own) date) unknown) (unknown) (no (unknown) (unknown) Patient History (units (unknown) date) unknown) (unknown) (no (unknown) (unknown) Patient: (units (unkno wn) date) Yoseph Cardoso unknown) MR#: [id number] (unknown) (no (unknown) (unknown) Phosphorus 4.1 H (units (unknown) date) unknown) (unknown) (no (unknown) (unknown) Phosphorus (units (unk nown) date) unknown) (unknown) (no (unknown) (unknown) Plt Count 222 (units ( unknown) date) unknown) (unknown) (no (unknown) (unknown) Plt Count (units (unkn own) date) unknown) (unknown) (no (unknown) (unknown) Potassium 4.8 (units ( unknown) date) unknown) (unknown) (no (unknown) (unknown) Potassium (units (unkn own) date) unknown) (unknown) (no (unknown) (unknown) Procalcitonin (units ( unknown) date) 3.27 H unknown) (unknown) (no (unknown) (unknown) Procalcitonin (units ( unknown) date) unknown) (unknown) (no (unknown) (unknown) Provider: (units (unkn own) date) Hawa Michael unknown) 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 (unknown) (no (unknown) (unknown) Psych: Patient (units (unknown) date) has a well-kept unknown) appearance, appropriate affect, mental status (unknown) (no (unknown) (unknown) Pulse Oximetry (units (unknown) date) 93 100 unknown) (unknown) (no (unknown) (unknown) Pulse Oximetry (units (unknown) date) 94 96 unknown) (unknown) (no (unknown) (unknown) Pulse Oximetry (units (unknown) date) 95 unknown) (unknown) (no (unknown) (unknown) Pulse Oximetry (units (unknown) date) 96 91 unknown) (unknown) (no (unknown) (unknown) Pulse Oximetry (units (unknown) date) 96 99 unknown) (unknown) (no (unknown) (unknown) Pulse Oximetry (units (unknown) date) 96 unknown) (unknown) (no (unknown) (unknown) Pulse Oximetry (units (unknown) date) 97 96 97 unknown) (unknown) (no (unknown) (unknown) Pulse Oximetry (units (unknown) date) 97 97 98 unknown) (unknown) (no (unknown) (unknown) Pulse Oximetry (units (unknown) date) 97 97 unknown) (unknown) (no (unknown) (unknown) Pulse Oximetry (units (unknown) date) 97 unknown) (unknown) (no (unknown) (unknown) Pulse Oximetry (units (unknown) date) 98 97 unknown) (unknown) (no (unknown) (unknown) Pulse Oximetry (units (unknown) date) 98 unknown) (unknown) (no (unknown) (unknown) Pulse Oximetry (units (unknown) date) unknown) (unknown) (no (unknown) (unknown) Pulse Rate 111 H (units (unknown) date) unknown) (unknown) (no (unknown) (unknown) Pulse Rate 114 H (units (unknown) date) 118 H unknown) (unknown) (no (unknown) (unknown) Pulse Rate 154 H (units (unknown) date) unknown) (unknown) (no (unknown) (unknown) Pulse Rate 72 66 (units (unknown) date) unknown) (unknown) (no (unknown) (unknown) Pulse Rate 72 71 (units (unknown) date) unknown) (unknown) (no (unknown) (unknown) Pulse Rate 72 74 (units (unknown) date) unknown) (unknown) (no (unknown) (unknown) Pulse Rate 72 (units ( unknown) date) unknown) (unknown) (no (unknown) (unknown) Pulse Rate 73 74 (units (unknown) date) unknown) (unknown) (no (unknown) (unknown) Pulse Rate 73 87 (units (unknown) date) 98 H unknown) (unknown) (no (unknown) (unknown) Pulse Rate 73 (units ( unknown) date) unknown) (unknown) (no (unknown) (unknown) Pulse Rate 74 (units ( unknown) date) 104 H 106 H unknown) (unknown) (no (unknown) (unknown) Pulse Rate 75 (units ( unknown) date) 116 H unknown) (unknown) (no (unknown) (unknown) Pulse Rate 75 70 (units (unknown) date) unknown) (unknown) (no (unknown) (unknown) Pulse Rate 75 74 (units (unknown) date) 74 unknown) (unknown) (no (unknown) (unknown) Pulse Rate 75 (units ( unknown) date) unknown) (unknown) (no (unknown) (unknown) Pulse Rate 76 (units ( unknown) date) unknown) (unknown) (no (unknown) (unknown) Pulse Rate 78 75 (units (unknown) date) unknown) (unknown) (no (unknown) (unknown) Pulse Rate 84 77 (units (unknown) date) unknown) (unknown) (no (unknown) (unknown) Pulse Rate 86 72 (units (unknown) date) unknown) (unknown) (no (unknown) (unknown) Pulse Rate 98 H (units (unknown) date) unknown) (unknown) (no (unknown) (unknown) RBC 5.05 (units (unkno wn) date) unknown) (unknown) (no (unknown) (unknown) RBC (units (unkno wn) date) unknown) (unknown) (no (unknown) (unknown) RDW 14.4 (units (unkno wn) date) unknown) (unknown) (no (unknown) (unknown) RDW (units (unkno wn) date) unknown) (unknown) (no (unknown) (unknown) RSV (PCR) (units (unkn own) date) Negative unknown) (unknown) (no (unknown) (unknown) RSV (PCR) (units (unkn own) date) unknown) (unknown) (no (unknown) (unknown) Respiratory Rate (units (unknown) date) 12 25 H unknown) (unknown) (no (unknown) (unknown) Respiratory Rate (units (unknown) date) 13 26 H unknown) (unknown) (no (unknown) (unknown) Respiratory Rate (units (unknown) date) 16 20 unknown) (unknown) (no (unknown) (unknown) Respiratory Rate (units (unknown) date) 17 26 H unknown) (unknown) (no (unknown) (unknown) Respiratory Rate (units (unknown) date) 17 unknown) (unknown) (no (unknown) (unknown) Respiratory Rate (units (unknown) date) 18 32 H unknown) (unknown) (no (unknown) (unknown) Respiratory Rate (units (unknown) date) 18 unknown) (unknown) (no (unknown) (unknown) Respiratory Rate (units (unknown) date) 19 18 unknown) (unknown) (no (unknown) (unknown) Respiratory Rate (units (unknown) date) 19 34 H 39 H unknown) (unknown) (no (unknown) (unknown) Respiratory Rate (units (unknown) date) 19 unknown) (unknown) (no (unknown) (unknown) Respiratory Rate (units (unknown) date) 20 unknown) (unknown) (no (unknown) (unknown) Respiratory Rate (units (unknown) date) 22 20 unknown) (unknown) (no (unknown) (unknown) Respiratory Rate (units (unknown) date) 23 17 16 unknown) (unknown) (no (unknown) (unknown) Respiratory Rate (units (unknown) date) 23 18 unknown) (unknown) (no (unknown) (unknown) Respiratory Rate (units (unknown) date) 24 19 unknown) (unknown) (no (unknown) (unknown) Respiratory Rate (units (unknown) date) 24 23 unknown) (unknown) (no (unknown) (unknown) Respiratory Rate (units (unknown) date) 27 H unknown) (unknown) (no (unknown) (unknown) Respiratory Rate (units (unknown) date) 29 H unknown) (unknown) (no (unknown) (unknown) Respiratory Rate (units (unknown) date) 30 H 24 unknown) (unknown) (no (unknown) (unknown) Respiratory Rate (units (unknown) date) unknown) (unknown) (no (unknown) (unknown) Review of (units (unkn own) date) Systems unknown) (unknown) (no (unknown) (unknown) SARS-CoV-2 (PCR) (units (unknown) date) Negative unknown) (unknown) (no (unknown) (unknown) SARS-CoV-2 (PCR) (units (unknown) date) unknown) (unknown) (no (unknown) (unknown) Safety + (units (unkno wn) date) Behavioral: unknown) (unknown) (no (unknown) (unknown) Signed By: (units (unk nown) date) unknown) (unknown) (no (unknown) (unknown) Skin: Warm dry (units (unknown) date) and intact unknown) without rashes, ulcerations or petechiae. (unknown) (no (unknown) (unknown) Smoking Status (units (unknown) date) Smoker, status unknown) unknown (unknown) (no (unknown) (unknown) Sodium 135 L (units (u nknown) date) unknown) (unknown) (no (unknown) (unknown) Sodium (units (unkno wn) date) unknown) (unknown) (no (unknown) (unknown) Substance Use (units ( unknown) date) Type does not use unknown) (unknown) (no (unknown) (unknown) Surgical History (units (unknown) date) (Updated 06/16/22 unknown) @ 21:27 by JOSE Crystal) (unknown) (no (unknown) (unknown) Temperature 98.1 (units (unknown) date) F unknown) (unknown) (no (unknown) (unknown) Temperature (units (un known) date) unknown) (unknown) (no (unknown) (unknown) Time Patient (units (u nknown) date) Seen: 15:35 unknown) (unknown) (no (unknown) (unknown) Time Spent With (units (unknown) date) Patient unknown) (unknown) (no (unknown) (unknown) Tobacco + (units (unkn own) date) Substance use: unknown) (unknown) (no (unknown) (unknown) Total Bilirubin (units (unknown) date) 2.1 H unknown) (unknown) (no (unknown) (unknown) Total Bilirubin (units (unknown) date) unknown) (unknown) (no (unknown) (unknown) Total Creatine (units (unknown) date) Kinase 53 L unknown) (unknown) (no (unknown) (unknown) Total Creatine (units (unknown) date) Kinase unknown) (unknown) (no (unknown) (unknown) Total Protein (units ( unknown) date) 5.8 L unknown) (unknown) (no (unknown) (unknown) Total Protein (units ( unknown) date) unknown) (unknown) (no (unknown) (unknown) Troponin I < (units (u nknown) date) 0.012 unknown) (unknown) (no (unknown) (unknown) Troponin I (units (unk nown) date) unknown) (unknown) (no (unknown) (unknown) Upon admit BP (units (u nknown) date) 149/78, unknown) tachycardic heart rate 154, tachypneic R 29, O2 saturation (unknown) (no (unknown) (unknown) Ur Bilirubin (units (u nknown) date) Confirm Positive unknown) H (unknown) (no (unknown) (unknown) Ur Bilirubin (units (u nknown) date) Confirm unknown) (unknown) (no (unknown) (unknown) Ur Culture (units (unk nown) date) Indicated? unknown) Specimen cultured (unknown) (no (unknown) (unknown) Ur Culture (units (unk nown) date) Indicated? unknown) (unknown) (no (unknown) (unknown) Ur Leukocyte (units (u nknown) date) Esterase Trace H unknown) (unknown) (no (unknown) (unknown) Ur Leukocyte (units (u nknown) date) Esterase unknown) (unknown) (no (unknown) (unknown) Ur Specific (units (un known) date) [place] 1.020 unknown) (unknown) (no (unknown) (unknown) Ur Specific (units (un known) date) [place] unknown) (unknown) (no (unknown) (unknown) Ur Squamous (units (un known) date) Epith Cells 1-5 unknown) /hpf (unknown) (no (unknown) (unknown) Ur Squamous (units (un known) date) Epith Cells unknown) (unknown) (no (unknown) (unknown) Urine Appearance (units (unknown) date) Cloudy unknown) (unknown) (no (unknown) (unknown) Urine Appearance (units (unknown) date) unknown) (unknown) (no (unknown) (unknown) Urine Bacteria (units (unknown) date) None seen unknown) (unknown) (no (unknown) (unknown) Urine Bacteria (units (unknown) date) unknown) (unknown) (no (unknown) (unknown) Urine Bilirubin (units (unknown) date) 3+ H unknown) (unknown) (no (unknown) (unknown) Urine Bilirubin (units (unknown) date) unknown) (unknown) (no (unknown) (unknown) Urine Color (units (un known) date) Brown unknown) (unknown) (no (unknown) (unknown) Urine Color (units (un known) date) unknown) (unknown) (no (unknown) (unknown) Urine Glucose (units ( unknown) date) (UA) Negative unknown) (unknown) (no (unknown) (unknown) Urine Glucose (units ( unknown) date) (UA) unknown) (unknown) (no (unknown) (unknown) Urine Ketones 1+ (units (unknown) date) H unknown) (unknown) (no (unknown) (unknown) Urine Ketones (units ( unknown) date) unknown) (unknown) (no (unknown) (unknown) Urine Nitrate (units ( unknown) date) Positive H unknown) (unknown) (no (unknown) (unknown) Urine Nitrate (units ( unknown) date) unknown) (unknown) (no (unknown) (unknown) Urine Occult (units (u nknown) date) Blood unknown) Trace-intact (unknown) (no (unknown) (unknown) Urine Occult (units (u nknown) date) Blood unknown) (unknown) (no (unknown) (unknown) Urine Protein 1+ (units (unknown) date) H unknown) (unknown) (no (unknown) (unknown) Urine Protein (units ( unknown) date) unknown) (unknown) (no (unknown) (unknown) Urine RBC (units (unkn own) date) 10-30/hpf H unknown) (unknown) (no (unknown) (unknown) Urine RBC (units (unkn own) date) unknown) (unknown) (no (unknown) (unknown) Urine (units (unkno wn) date) Urobilinogen 1.0 unknown) (unknown) (no (unknown) (unknown) Urine (units (unkno wn) date) Urobilinogen unknown) (unknown) (no (unknown) (unknown) Urine WBC (units (unkn own) date) 1-5/hpf unknown) (unknown) (no (unknown) (unknown) Urine WBC (units (unkn own) date) unknown) (unknown) (no (unknown) (unknown) Urine pH 6.5 (units (u nknown) date) unknown) (unknown) (no (unknown) (unknown) Urine pH (units (unkno wn) date) unknown) (unknown) (no (unknown) (unknown) Vital Signs (units (un known) date) unknown) (unknown) (no (unknown) (unknown) WBC 9.6 (units (unkno wn) date) unknown) (unknown) (no (unknown) (unknown) WBC (units (unkno wn) date) unknown) (unknown) (no (unknown) (unknown) [Embedded Image (units (unknown) date) Not Available] unknown) (unknown) (no (unknown) (unknown) [From Prevnar] (units (unknown) date) and feet x unknown) (unknown) (no (unknown) (unknown) a recent 30 lb (units (unknown) date) weight loss, and unknown) night sweats with a shuffling gait x6 weeks. He (unknown) (no (unknown) (unknown) abnormal. COVID, (units (unknown) date) influenza a/B/RSV unknown) negative. Head CT negative. CXR ?Possible (unknown) (no (unknown) (unknown) after. (units (unkno wn) date) unknown) (unknown) (no (unknown) (unknown) alcohol intake (units (unknown) date) frequency a few unknown) times a month (unknown) (no (unknown) (unknown) amlodipine 5 mg (units (unknown) date) tablet 5 mg PO unknown) DAILY 06/16/22 06/16/22 History (unknown) (no (unknown) (unknown) apixaban 5 mg (units ( unknown) date) tablet (Eliquis) unknown) 5 mg PO BID blood thinner 06/16/22 06/16/22 (unknown) (no (unknown) (unknown) are present in (units (unknown) date) all 4 quadrants unknown) without guarding or rebound, no CVA tenderness. (unknown) (no (unknown) (unknown) at this time, no (units (unknown) date) apparent unknown) jaundice, right upper quadrant pain, or fever. (unknown) (no (unknown) (unknown) attitude thought (units (unknown) date) context and unknown) judgment are appropriate for age. (unknown) (no (unknown) (unknown) cardiology's (units (u nknown) date) office due to his unknown) significant presentation of cachexia, weakness, (unknown) (no (unknown) (unknown) clear and mucous (units (unknown) date) membranes are unknown) moist. 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 Full range (unknown) (no (unknown) (unknown) documented. (units (un known) date) unknown) (unknown) (no (unknown) (unknown) due to his (units (unk nown) date) significant unknown) presentation of cachexia, weakness, malaise balance (unknown) (no (unknown) (unknown) dysuria, (units (unkno wn) date) frequency, unknown) urgency, hematuria, bowel changes, constipation, (unknown) (no (unknown) (unknown) falls, head (units (un known) date) injury, LOC, unknown) fever, body aches, chills, cough, recent exposure to (unknown) (no (unknown) (unknown) fluticasone (units (un known) date) propionate 44 44 unknown) mcg inhalation DAILY 06/16/22 06/16/22 History (unknown) (no (unknown) (unknown) gabapentin 300 (units (unknown) date) mg capsule 300 mg unknown) PO BID 06/16/22 06/16/22 History (unknown) (no (unknown) (unknown) greater than (units (u nknown) date) left pulmonary unknown) effusion. SOFA:2 patient admitted for mild sepsis, (unknown) (no (unknown) (unknown) historian, (units (unk nown) date) stated that 'he unknown) came in today by himself because he had black urine (unknown) (no (unknown) (unknown) illness, (units (unkno wn) date) abdominal pain, unknown) nausea, vomiting, urinary incontinence/rete ntion, (unknown) (no (unknown) (unknown) incontinence, (units ( unknown) date) melena, rashes, unknown) recent changes to medication, illness, injury, or (unknown) (no (unknown) (unknown) infiltrates (units (un known) date) versus unknown) inflammatory pulmonary opacities mild to moderate right (unknown) (no (unknown) (unknown) into the ED by (units (unknown) date) his . Patient unknown) demonstrated escalating tachycardia with heart (unknown) (no (unknown) (unknown) malaise, balance (units (unknown) date) coordination unknown) issues, and concerns for neoplastic syndrome with (unknown) (no (unknown) (unknown) mcg/actuation (units ( unknown) date) HFA aerosol unknown) inhaler (unknown) (no (unknown) (unknown) medication (units (unk nown) date) reconciliation. unknown) Patient denies any pain, and appears is no distress (unknown) (no (unknown) (unknown) midline, no (units (un known) date) adenopathy, no unknown) thyroid enlargement, nontender, no masses palpated. (unknown) (no (unknown) (unknown) mild right and (units (unknown) date) retrocardiac unknown) opacities Chest CT demonstrated bibasilar (unknown) (no (unknown) (unknown) negative, BNP (units ( unknown) date) 1430. EKG atrial unknown) sensed ventricular paced rhythm rate 72, (unknown) (no (unknown) (unknown) no carotid (units (unk nown) date) bruit, no cardiac unknown) pulsations present. (unknown) (no (unknown) (unknown) of motion intact (units (unknown) date) radial and pedal unknown) pulses are normal. 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 Gillette (unknown) (no (unknown) (unknown) pacemaker, and (units (unknown) date) melanoma who was unknown) sent over from Dr. Gillette cardiology's office (unknown) (no (unknown) (unknown) patient's (units (unkn own) date) baseline. Due to unknown) cognitive impairment unable to obtain HPI, ROS, or (unknown) (no (unknown) (unknown) pneumococcal (units (u nknown) date) 7-valent AdvReac unknown) Intermediate swelling Verified 06/16/22 12:46 (unknown) (no (unknown) (unknown) rates 111-154, (units (unknown) date) and tachypneic unknown) respiratory rate in the 20s. (unknown) (no (unknown) (unknown) retractions, or (units (unknown) date) tachypneic unknown) labored (unknown) (no (unknown) (unknown) tachycardia with (units (unknown) date) heart rates unknown) 111-154, and tachypneic respiratory rate in the (unknown) (no (unknown) (unknown) this morning'. (units (unknown) date) He did not recall unknown) seeing Dr. Gillette, unsure if this is the (unknown) (no (unknown) (unknown) time. (units (unkno wn) date) unknown) (unknown) (no (unknown) (unknown) to touch intact, (units (unknown) date) no gross deficits unknown) noted of cranial nerves. (unknown) (no (unknown) (unknown) today; this time (units (unknown) date) is exclusive of unknown) procedural time. (unknown) (no (unknown) (unknown) transaminitis, (units (unknown) date) UTI, elevated unknown) phosphorus. (unknown) (no (unknown) (unknown) transaminitis, (units (unknown) date) UTI, unknown) encephalopathy. (unknown) (no (unknown) (unknown) trauma. (units (unkno wn) date) unknown) (unknown) (no (unknown) (unknown) vision, (units (unkno wn) date) difficulty unknown) swallowing, speech impairment, numbness, tingling, recent (unknown) (no (unknown) (unknown) was brought into (units (unknown) date) the ED by his unknown) . In ED patient demonstrated escalating (unknown) (no (unknown) (unknown) weight loss, and (units (unknown) date) night sweats with unknown) a shuffling gait x6 weeks. He was brought (unknown) (no (unknown) (unknown) wheezes, (units (unkno wn) date) rhonchi, or unknown) rales. Result panel 216 (unknown) (no (unknown) (unknown) (no value) (units (unk nown) date) unknown) (unknown) (no (unknown) (unknown) (Flovent HFA) (units ( unknown) date) unknown) (unknown) (no (unknown) (unknown) (past 8 hours): (units (unknown) date) unknown) (unknown) (no (unknown) (unknown) [id number] (units (unkno wn) date) unknown) (unknown) (no (unknown) (unknown) 06/16/22 06/16/22 (units (unknown) date) 06/16/22 unknown) (unknown) (no (unknown) (unknown) 06/16/22 06/16/22 (units (unknown) date) unknown) (unknown) (no (unknown) (unknown) 06/16/22 12:35 (units (unknown) date) unknown) (unknown) (no (unknown) (unknown) 06/16/22 (units (unkno wn) date) unknown) (unknown) (no (unknown) (unknown) 1. Sepsis without (units (unknown) date) septic shock unknown) (unknown) (no (unknown) (unknown) 12:35 12:35 12:35 (units (unknown) date) unknown) (unknown) (no (unknown) (unknown) 13:15 06/16/22 (units (unknown) date) unknown) (unknown) (no (unknown) (unknown) 13:30 (units (unkno wn) date) unknown) (unknown) (no (unknown) (unknown) 13:45 06/16/22 (units (unknown) date) unknown) (unknown) (no (unknown) (unknown) 13:46 06/16/22 (units (unknown) date) unknown) (unknown) (no (unknown) (unknown) 13:46 (units (unkno wn) date) unknown) (unknown) (no (unknown) (unknown) 14:00 06/16/22 (units (unknown) date) unknown) (unknown) (no (unknown) (unknown) 14:24 (units (unkno wn) date) unknown) (unknown) (no (unknown) (unknown) 14:30 06/16/22 (units (unknown) date) unknown) (unknown) (no (unknown) (unknown) 14:45 06/16/22 (units (unknown) date) unknown) (unknown) (no (unknown) (unknown) 15:00 (units (unkno wn) date) unknown) (unknown) (no (unknown) (unknown) 15:15 06/16/22 (units (unknown) date) unknown) (unknown) (no (unknown) (unknown) 15:30 06/16/22 (units (unknown) date) unknown) (unknown) (no (unknown) (unknown) 15:30 17:55 (units (un known) date) unknown) (unknown) (no (unknown) (unknown) 15:34 06/16/22 (units (unknown) date) unknown) (unknown) (no (unknown) (unknown) 15:34 (units (unkno wn) date) unknown) (unknown) (no (unknown) (unknown) 15:45 06/16/22 (units (unknown) date) unknown) (unknown) (no (unknown) (unknown) 15:45 (units (unkno wn) date) unknown) (unknown) (no (unknown) (unknown) 16:00 06/16/22 (units (unknown) date) unknown) (unknown) (no (unknown) (unknown) 16:15 06/16/22 (units (unknown) date) unknown) (unknown) (no (unknown) (unknown) 16:15 (units (unkno wn) date) unknown) (unknown) (no (unknown) (unknown) 16:30 06/16/22 (units (unknown) date) unknown) (unknown) (no (unknown) (unknown) 16:31 06/16/22 (units (unknown) date) unknown) (unknown) (no (unknown) (unknown) 16:31 (units (unkno wn) date) unknown) (unknown) (no (unknown) (unknown) 16:45 06/16/22 (units (unknown) date) unknown) (unknown) (no (unknown) (unknown) 17.6, INR 1.5, (units (unknown) date) PTT 38. Sodium unknown) 135, BUN 34, glucose 146, calcium 8.1, magnesium (unknown) (no (unknown) (unknown) 17:00 06/16/22 (units (unknown) date) unknown) (unknown) (no (unknown) (unknown) 17:00 (units (unkno wn) date) unknown) (unknown) (no (unknown) (unknown) 17:15 06/16/22 (units (unknown) date) unknown) (unknown) (no (unknown) (unknown) 17:15 (units (unkno wn) date) unknown) (unknown) (no (unknown) (unknown) 17:30 06/16/22 (units (unknown) date) unknown) (unknown) (no (unknown) (unknown) 17:45 (units (unkno wn) date) unknown) (unknown) (no (unknown) (unknown) 17:46 06/16/22 (units (unknown) date) unknown) (unknown) (no (unknown) (unknown) 17:59 (units (unkno wn) date) unknown) (unknown) (no (unknown) (unknown) 18:00 06/16/22 (units (unknown) date) unknown) (unknown) (no (unknown) (unknown) 18:01 06/16/22 (units (unknown) date) unknown) (unknown) (no (unknown) (unknown) 18:15 06/16/22 (units (unknown) date) unknown) (unknown) (no (unknown) (unknown) 18:15 (units (unkno wn) date) unknown) (unknown) (no (unknown) (unknown) 18:30 06/16/22 (units (unknown) date) unknown) (unknown) (no (unknown) (unknown) 18:30 (units (unkno wn) date) unknown) (unknown) (no (unknown) (unknown) 18:45 06/16/22 (units (unknown) date) unknown) (unknown) (no (unknown) (unknown) 19:00 06/16/22 (units (unknown) date) unknown) (unknown) (no (unknown) (unknown) 19:00 (units (unkno wn) date) unknown) (unknown) (no (unknown) (unknown) 19:15 06/16/22 (units (unknown) date) unknown) (unknown) (no (unknown) (unknown) 19:15 (units (unkno wn) date) unknown) (unknown) (no (unknown) (unknown) 19:30 06/16/22 (units (unknown) date) unknown) (unknown) (no (unknown) (unknown) 19:45 06/16/22 (units (unknown) date) unknown) (unknown) (no (unknown) (unknown) 19:45 (units (unkno wn) date) unknown) (unknown) (no (unknown) (unknown) 2.6, phosphorus (units (unknown) date) 4.1, bili 2.1, AST unknown) 61, ALT 63, alk-phos 428, total protein 5.8, (unknown) (no (unknown) (unknown) 20:00 06/16/22 (units (unknown) date) unknown) (unknown) (no (unknown) (unknown) 20:00 (units (unkno wn) date) unknown) (unknown) (no (unknown) (unknown) 20:15 02/24/23 (units (unknown) date) unknown) (unknown) (no (unknown) (unknown) 20:30 06/16/22 (units (unknown) date) unknown) (unknown) (no (unknown) (unknown) 20:30 (units (unkno wn) date) unknown) (unknown) (no (unknown) (unknown) 20:45 06/16/22 (units (unknown) date) unknown) (unknown) (no (unknown) (unknown) 20:46 06/16/22 (units (unknown) date) unknown) (unknown) (no (unknown) (unknown) 20:46 (units (unkno wn) date) unknown) (unknown) (no (unknown) (unknown) 20:55 (units (unkno wn) date) unknown) (unknown) (no (unknown) (unknown) 20s. During admit (units (unknown) date) interview patient unknown) is pleasantly confused orientated to self (unknown) (no (unknown) (unknown) 20s. (units (unkno wn) date) unknown) (unknown) (no (unknown) (unknown) 34, glucose 146, (units (unknown) date) calcium 8.1, unknown) magnesium 2.6, phosphorus 4.1, bili 2.1, AST 61, (unknown) (no (unknown) (unknown) 4 mos (units (unkno wn) date) unknown) (unknown) (no (unknown) (unknown) 4.3, repeat 2.7, (units (unknown) date) procalcitonin unknown) 3.27, PT 17.6, INR 1.5, PTT 38. Sodium 135, BUN (unknown) (no (unknown) (unknown) 98% on room air. (units (unknown) date) Patient did get up unknown) and ambulate to the restroom w/MA without (unknown) (no (unknown) (unknown) 98% on room air. (units (unknown) date) Patient has no unknown) WBC, but left shiftneut 8200, initial lactate (unknown) (no (unknown) (unknown) ALT 63 H (units (unkno wn) date) unknown) (unknown) (no (unknown) (unknown) ALT 63, alk-phos (units (unknown) date) 428, total protein unknown) 5.8, albumin 3.1, CK 53, initial troponin (unknown) (no (unknown) (unknown) ALT (units (unkno wn) date) unknown) (unknown) (no (unknown) (unknown) APTT 38 H (units (unkn own) date) unknown) (unknown) (no (unknown) (unknown) APTT (units (unkno wn) date) unknown) (unknown) (no (unknown) (unknown) AST 61 H (units (unkno wn) date) unknown) (unknown) (no (unknown) (unknown) AST (units (unkno wn) date) unknown) (unknown) (no (unknown) (unknown) Abdomen: Soft (units ( unknown) date) nontender, unknown) negative for organomegaly, or masses. Bowel sounds (unknown) (no (unknown) (unknown) Age/Sex: 86 / M (units (unknown) date) unknown) (unknown) (no (unknown) (unknown) Albumin 3.1 L (units ( unknown) date) unknown) (unknown) (no (unknown) (unknown) Albumin (units (unkno wn) date) unknown) (unknown) (no (unknown) (unknown) Albumin/Globulin (units (unknown) date) Ratio 1.1 unknown) (unknown) (no (unknown) (unknown) Albumin/Globulin (units (unknown) date) Ratio unknown) (unknown) (no (unknown) (unknown) Alkaline (units (unkno wn) date) Phosphatase 428 H unknown) (unknown) (no (unknown) (unknown) Alkaline (units (unkno wn) date) Phosphatase unknown) (unknown) (no (unknown) (unknown) Allergies (units (unkn own) date) unknown) (unknown) (no (unknown) (unknown) Allergy/AdvReac (units (unknown) date) Type Severity unknown) Reaction Status Date / Time (unknown) (no (unknown) (unknown) Assessment + Plan (units (unknown) date) narrative: unknown) (unknown) (no (unknown) (unknown) Assessment + Plan (units (unknown) date) unknown) (unknown) (no (unknown) (unknown) Asthma (units (unkno wn) date) unknown) (unknown) (no (unknown) (unknown) Atrial (units (unkno wn) date) fibrillation unknown) (unknown) (no (unknown) (unknown) BUN 34 H (units (unkno wn) date) unknown) (unknown) (no (unknown) (unknown) BUN (units (unkno wn) date) unknown) (unknown) (no (unknown) (unknown) BUN/Creatinine (units (unknown) date) Ratio 34.3 H unknown) (unknown) (no (unknown) (unknown) BUN/Creatinine (units (unknown) date) Ratio unknown) (unknown) (no (unknown) (unknown) Baso # (Auto) 100 (units (unknown) date) unknown) (unknown) (no (unknown) (unknown) Baso # (Auto) (units ( unknown) date) unknown) (unknown) (no (unknown) (unknown) Baso % (Auto) 0.8 (units (unknown) date) unknown) (unknown) (no (unknown) (unknown) Baso % (Auto) (units ( unknown) date) unknown) (unknown) (no (unknown) (unknown) Blood Pressure (units (unknown) date) 141/57 H unknown) (unknown) (no (unknown) (unknown) Blood Pressure (units (unknown) date) 141/73 H unknown) (unknown) (no (unknown) (unknown) Blood Pressure (units (unknown) date) 142/65 H 156/70 H unknown) (unknown) (no (unknown) (unknown) Blood Pressure (units (unknown) date) 142/67 H unknown) (unknown) (no (unknown) (unknown) Blood Pressure (units (unknown) date) 143/67 H unknown) (unknown) (no (unknown) (unknown) Blood Pressure (units (unknown) date) 145/69 H unknown) (unknown) (no (unknown) (unknown) Blood Pressure (units (unknown) date) 146/69 H unknown) (unknown) (no (unknown) (unknown) Blood Pressure (units (unknown) date) 147/71 H 150/72 H unknown) (unknown) (no (unknown) (unknown) Blood Pressure (units (unknown) date) 149/68 H 130/59 L unknown) (unknown) (no (unknown) (unknown) Blood Pressure (units (unknown) date) 149/78 H 155/70 H unknown) (unknown) (no (unknown) (unknown) Blood Pressure (units (unknown) date) 150/73 H unknown) (unknown) (no (unknown) (unknown) Blood Pressure (units (unknown) date) 151/72 H unknown) (unknown) (no (unknown) (unknown) Blood Pressure (units (unknown) date) 154/73 H unknown) (unknown) (no (unknown) (unknown) Blood Pressure (units (unknown) date) 156/72 H 151/72 H unknown) (unknown) (no (unknown) (unknown) Blood Pressure (units (unknown) date) 162/114 H unknown) (unknown) (no (unknown) (unknown) Blood Pressure (units (unknown) date) 164/94 H 164/96 H unknown) (unknown) (no (unknown) (unknown) Blood Pressure (units (unknown) date) 179/74 H 179/94 H unknown) (unknown) (no (unknown) (unknown) Blood Pressure (units (unknown) date) 186/112 H 169/75 H unknown) (unknown) (no (unknown) (unknown) Blood Pressure (units (unknown) date) unknown) (unknown) (no (unknown) (unknown) CK-MB (CK-2) Rel (units (unknown) date) Index TNP unknown) (unknown) (no (unknown) (unknown) CK-MB (CK-2) Rel (units (unknown) date) Index unknown) (unknown) (no (unknown) (unknown) CK-MB (CK-2) TNP (units (unknown) date) unknown) (unknown) (no (unknown) (unknown) CK-MB (CK-2) (units (u nknown) date) unknown) (unknown) (no (unknown) (unknown) Calcium 8.1 L (units ( unknown) date) unknown) (unknown) (no (unknown) (unknown) Calcium (units (unkno wn) date) unknown) (unknown) (no (unknown) (unknown) Carbon Dioxide 28 (units (unknown) date) unknown) (unknown) (no (unknown) (unknown) Carbon Dioxide (units (unknown) date) unknown) (unknown) (no (unknown) (unknown) Cardio: regular (units (unknown) date) rate and rhythm unknown) without murmur, rubs, or gallops, no carotid (unknown) (no (unknown) (unknown) Chest: Equal (units (u nknown) date) expansion, unknown) positive kyphoscoliosis, no nasal flaring, retractions, (unknown) (no (unknown) (unknown) Chief complaint: (units (unknown) date) Pain near unknown) pacemaker (unknown) (no (unknown) (unknown) Chloride 99 (units (un known) date) unknown) (unknown) (no (unknown) (unknown) Chloride (units (unkno wn) date) unknown) (unknown) (no (unknown) (unknown) Chronic (units (unkno wn) date) anticoagulation unknown) (unknown) (no (unknown) (unknown) Creatinine 0.99 (units (unknown) date) unknown) (unknown) (no (unknown) (unknown) Creatinine (units (unk nown) date) unknown) (unknown) (no (unknown) (unknown) Critical Care (units ( unknown) date) time: unknown) (unknown) (no (unknown) (unknown) : 1935 (units (unknown) date) Acct:[id number] unknown) (unknown) (no (unknown) (unknown) Date Patient (units (u nknown) date) Seen: 06/16/22 unknown) (unknown) (no (unknown) (unknown) Date of Service: (units (unknown) date) 06/16/22 unknown) (unknown) (no (unknown) (unknown) Yoseph Cardoso is (units (unknown) date) a 86-year-old male unknown) with a history of atrial fibrillation, with (unknown) (no (unknown) (unknown) Due to patient's (units (unknown) date) cognitive unknown) impairment/encepha lopathy unable to obtain HPI, ROS, (unknown) (no (unknown) (unknown) Environment (units (un known) date) unknown) (unknown) (no (unknown) (unknown) Eos # (Auto) 0 (units (unknown) date) unknown) (unknown) (no (unknown) (unknown) Eos # (Auto) (units (u nknown) date) unknown) (unknown) (no (unknown) (unknown) Eos % (Auto) 0.1 (units (unknown) date) L unknown) (unknown) (no (unknown) (unknown) Eos % (Auto) (units (u nknown) date) unknown) (unknown) (no (unknown) (unknown) Essential (units (unkn own) date) hypertension unknown) (unknown) (no (unknown) (unknown) Estimated GFR > (units (unknown) date) 60 unknown) (unknown) (no (unknown) (unknown) Estimated GFR (units ( unknown) date) unknown) (unknown) (no (unknown) (unknown) Exam Narrative: (units (unknown) date) unknown) (unknown) (no (unknown) (unknown) Exam (units (unkno wn) date) unknown) (unknown) (no (unknown) (unknown) Family + Social (units (unknown) date) History unknown) (unknown) (no (unknown) (unknown) Family History (units (unknown) date) (Reviewed 06/17/22 unknown) @ 00:47 by Hawa Micheal [facility]) (unknown) (no (unknown) (unknown) Father (units (unknown) date) Diabetes mellitus unknown) (unknown) (no (unknown) (unknown) Feels Safe in (units ( unknown) date) Current Yes, unknown) patient lives at home with his . (unknown) (no (unknown) (unknown) Full range of (units ( unknown) date) motion intact unknown) radial and pedal pulses are normal. (unknown) (no (unknown) (unknown) General: Patient (units (unknown) date) is a pleasantly unknown) confused cachectic, frail, elderly male, in no (unknown) (no (unknown) (unknown) Globulin 2.7 (units (u nknown) date) unknown) (unknown) (no (unknown) (unknown) Globulin (units (unkno wn) date) unknown) (unknown) (no (unknown) (unknown) Glucose 146 H (units ( unknown) date) unknown) (unknown) (no (unknown) (unknown) Glucose (units (unkno wn) date) unknown) (unknown) (no (unknown) (unknown) HEENT: (units (unkno wn) date) Normocephalic, unknown) atraumatic, extraocular muscles intact, oral pharynx is (unknown) (no (unknown) (unknown) Hct 46.6 (units (unkno wn) date) unknown) (unknown) (no (unknown) (unknown) Hct (units (unkno wn) date) unknown) (unknown) (no (unknown) (unknown) Head CT negative. 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 (unknown) (no (unknown) (unknown) History (units (unkno wn) date) unknown) (unknown) (no (unknown) (unknown) Home Medications (units (unknown) date) and Allergies unknown) (unknown) (no (unknown) (unknown) Home Medications (units (unknown) date) unknown) (unknown) (no (unknown) (unknown) I spent a total (units (unknown) date) of [] minutes of unknown) critical care time on this patient's care (unknown) (no (unknown) (unknown) INR 1.5 H (units (unkn own) date) unknown) (unknown) (no (unknown) (unknown) INR (units (unkno wn) date) unknown) (unknown) (no (unknown) (unknown) Influenza A (units (un known) date) (RT-PCR) Flu a unknown) negative (unknown) (no (unknown) (unknown) Influenza A (units (un known) date) (RT-PCR) unknown) (unknown) (no (unknown) (unknown) Influenza B (units (un known) date) (RT-PCR) Flu b unknown) negative (unknown) (no (unknown) (unknown) Influenza B (units (un known) date) (RT-PCR) unknown) (unknown) (no (unknown) (unknown) [facility] (units (unknown) date) [address] unknown) [place] [address] (unknown) (no (unknown) (unknown) Laboratory (units (unk nown) date) Results - last 24 unknown) hr (unknown) (no (unknown) (unknown) Labs (units (unkno wn) date) unknown) (unknown) (no (unknown) (unknown) Labs: (units (unkno wn) date) unknown) (unknown) (no (unknown) (unknown) Lactate 2.7 H (units ( unknown) date) unknown) (unknown) (no (unknown) (unknown) Lactate 4.3 H* (units (unknown) date) unknown) (unknown) (no (unknown) (unknown) Lactate (units (unkno wn) date) unknown) (unknown) (no (unknown) (unknown) Lipase 45 (units (unkn own) date) unknown) (unknown) (no (unknown) (unknown) Lipase (units (unkno wn) date) unknown) (unknown) (no (unknown) (unknown) Lungs: (units (unkno wn) date) Auscultation of unknown) all lung troy are clear without adventitious sounds, (unknown) (no (unknown) (unknown) Lymph # (Auto) (units (unknown) date) 400 L unknown) (unknown) (no (unknown) (unknown) Lymph # (Auto) (units (unknown) date) unknown) (unknown) (no (unknown) (unknown) Lymph % (Auto) (units (unknown) date) 4.6 L unknown) (unknown) (no (unknown) (unknown) Lymph % (Auto) (units (unknown) date) unknown) (unknown) (no (unknown) (unknown) MCH 30.4 (units (unkno wn) date) unknown) (unknown) (no (unknown) (unknown) MCH (units (unkno wn) date) unknown) (unknown) (no (unknown) (unknown) MCHC 33.0 (units (unkn own) date) unknown) (unknown) (no (unknown) (unknown) MCHC (units (unkno wn) date) unknown) (unknown) (no (unknown) (unknown) MCV 92.4 (units (unkno wn) date) unknown) (unknown) (no (unknown) (unknown) MCV (units (unkno wn) date) unknown) (unknown) (no (unknown) (unknown) Magnesium 2.6 H (units (unknown) date) unknown) (unknown) (no (unknown) (unknown) Magnesium (units (unkn own) date) unknown) (unknown) (no (unknown) (unknown) Medical History (units (unknown) date) (Updated 06/17/22 unknown) @ 00:55 by Hawa Michael [facility]) (unknown) (no (unknown) (unknown) Medication (units (unk nown) date) Instructions unknown) Recorded Confirmed Type (unknown) (no (unknown) (unknown) Meds (units (unkno wn) date) unknown) (unknown) (no (unknown) (unknown) [place] # (Auto) 900 (units (unknown) date) unknown) (unknown) (no (unknown) (unknown) [place] # (Auto) (units ( unknown) date) unknown) (unknown) (no (unknown) (unknown) [place] % (Auto) 9.4 (units (unknown) date) unknown) (unknown) (no (unknown) (unknown) [place] % (Auto) (units ( unknown) date) unknown) (unknown) (no (unknown) (unknown) Mother (units (unknown) date) No problems noted. unknown) (unknown) (no (unknown) (unknown) Musculoskeletal: (units (unknown) date) Diffuse but equal unknown) throughout all extremity muscle wasting, no (unknown) (no (unknown) (unknown) NT-Pro-B (units (unkno wn) date) Natriuret Pep 1430 unknown) H (unknown) (no (unknown) (unknown) NT-Pro-B (units (unkno wn) date) Natriuret Pep unknown) (unknown) (no (unknown) (unknown) Narrative (units (unkn own) date) unknown) (unknown) (no (unknown) (unknown) Narrative: (units (unk nown) date) unknown) (unknown) (no (unknown) (unknown) Negative Fever, (units (unknown) date) jaundice, right unknown) upper quadrant pain (unknown) (no (unknown) (unknown) Negative for JVD (units (unknown) date) unknown) (unknown) (no (unknown) (unknown) Neuro: Alert and (units (unknown) date) orientated x2 unknown) Person + Place , moves all extremities, (unknown) (no (unknown) (unknown) Neut # (Auto) (units ( unknown) date) 8200 H unknown) (unknown) (no (unknown) (unknown) Neut # (Auto) (units ( unknown) date) unknown) (unknown) (no (unknown) (unknown) Neut % (Auto) (units ( unknown) date) 85.1 H unknown) (unknown) (no (unknown) (unknown) Neut % (Auto) (units ( unknown) date) unknown) (unknown) (no (unknown) (unknown) Objective (units (unkn own) date) unknown) (unknown) (no (unknown) (unknown) Oxygen Delivery (units (unknown) date) Method Room Air unknown) (unknown) (no (unknown) (unknown) Oxygen Delivery (units (unknown) date) Method unknown) (unknown) (no (unknown) (unknown) PT 17.6 H (units (unkn own) date) unknown) (unknown) (no (unknown) (unknown) PT (units (unkno wn) date) unknown) (unknown) (no (unknown) (unknown) Pacemaker (units (unkn own) date) unknown) (unknown) (no (unknown) (unknown) Patient History (units (unknown) date) unknown) (unknown) (no (unknown) (unknown) Patient: (units (unkno wn) date) Yoseph Cardoso unknown) MR#: [id number] (unknown) (no (unknown) (unknown) Phosphorus 4.1 H (units (unknown) date) unknown) (unknown) (no (unknown) (unknown) Phosphorus (units (unk nown) date) unknown) (unknown) (no (unknown) (unknown) Plt Count 222 (units ( unknown) date) unknown) (unknown) (no (unknown) (unknown) Plt Count (units (unkn own) date) unknown) (unknown) (no (unknown) (unknown) Potassium 4.8 (units ( unknown) date) unknown) (unknown) (no (unknown) (unknown) Potassium (units (unkn own) date) unknown) (unknown) (no (unknown) (unknown) Procalcitonin (units ( unknown) date) 3.27 H unknown) (unknown) (no (unknown) (unknown) Procalcitonin (units ( unknown) date) unknown) (unknown) (no (unknown) (unknown) Provider: (units (unkn own) date) Hawa Michael unknown) 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 (unknown) (no (unknown) (unknown) Psych: Patient (units (unknown) date) has a well-kept unknown) appearance, pleasant affect, mental status (unknown) (no (unknown) (unknown) Pulse Oximetry 93 (units (unknown) date) 100 unknown) (unknown) (no (unknown) (unknown) Pulse Oximetry 94 (units (unknown) date) 96 unknown) (unknown) (no (unknown) (unknown) Pulse Oximetry 95 (units (unknown) date) unknown) (unknown) (no (unknown) (unknown) Pulse Oximetry 96 (units (unknown) date) 91 unknown) (unknown) (no (unknown) (unknown) Pulse Oximetry 96 (units (unknown) date) 99 unknown) (unknown) (no (unknown) (unknown) Pulse Oximetry 96 (units (unknown) date) unknown) (unknown) (no (unknown) (unknown) Pulse Oximetry 97 (units (unknown) date) 96 97 unknown) (unknown) (no (unknown) (unknown) Pulse Oximetry 97 (units (unknown) date) 97 98 unknown) (unknown) (no (unknown) (unknown) Pulse Oximetry 97 (units (unknown) date) 97 unknown) (unknown) (no (unknown) (unknown) Pulse Oximetry 97 (units (unknown) date) unknown) (unknown) (no (unknown) (unknown) Pulse Oximetry 98 (units (unknown) date) 97 unknown) (unknown) (no (unknown) (unknown) Pulse Oximetry 98 (units (unknown) date) unknown) (unknown) (no (unknown) (unknown) Pulse Oximetry (units (unknown) date) unknown) (unknown) (no (unknown) (unknown) Pulse Rate 111 H (units (unknown) date) unknown) (unknown) (no (unknown) (unknown) Pulse Rate 114 H (units (unknown) date) 118 H unknown) (unknown) (no (unknown) (unknown) Pulse Rate 154 H (units (unknown) date) unknown) (unknown) (no (unknown) (unknown) Pulse Rate 72 66 (units (unknown) date) unknown) (unknown) (no (unknown) (unknown) Pulse Rate 72 71 (units (unknown) date) unknown) (unknown) (no (unknown) (unknown) Pulse Rate 72 74 (units (unknown) date) unknown) (unknown) (no (unknown) (unknown) Pulse Rate 72 (units ( unknown) date) unknown) (unknown) (no (unknown) (unknown) Pulse Rate 73 74 (units (unknown) date) unknown) (unknown) (no (unknown) (unknown) Pulse Rate 73 87 (units (unknown) date) 98 H unknown) (unknown) (no (unknown) (unknown) Pulse Rate 73 (units ( unknown) date) unknown) (unknown) (no (unknown) (unknown) Pulse Rate 74 104 (units (unknown) date) H 106 H unknown) (unknown) (no (unknown) (unknown) Pulse Rate 75 116 (units (unknown) date) H unknown) (unknown) (no (unknown) (unknown) Pulse Rate 75 70 (units (unknown) date) unknown) (unknown) (no (unknown) (unknown) Pulse Rate 75 74 (units (unknown) date) 74 unknown) (unknown) (no (unknown) (unknown) Pulse Rate 75 (units ( unknown) date) unknown) (unknown) (no (unknown) (unknown) Pulse Rate 76 (units ( unknown) date) unknown) (unknown) (no (unknown) (unknown) Pulse Rate 78 75 (units (unknown) date) unknown) (unknown) (no (unknown) (unknown) Pulse Rate 84 77 (units (unknown) date) unknown) (unknown) (no (unknown) (unknown) Pulse Rate 86 72 (units (unknown) date) unknown) (unknown) (no (unknown) (unknown) Pulse Rate 98 H (units (unknown) date) unknown) (unknown) (no (unknown) (unknown) RBC 5.05 (units (unkno wn) date) unknown) (unknown) (no (unknown) (unknown) RBC (units (unkno wn) date) unknown) (unknown) (no (unknown) (unknown) RDW 14.4 (units (unkno wn) date) unknown) (unknown) (no (unknown) (unknown) RDW (units (unkno wn) date) unknown) (unknown) (no (unknown) (unknown) RSV (PCR) (units (unkn own) date) Negative unknown) (unknown) (no (unknown) (unknown) RSV (PCR) (units (unkn own) date) unknown) (unknown) (no (unknown) (unknown) Respiratory Rate (units (unknown) date) 12 25 H unknown) (unknown) (no (unknown) (unknown) Respiratory Rate (units (unknown) date) 13 26 H unknown) (unknown) (no (unknown) (unknown) Respiratory Rate (units (unknown) date) 16 20 unknown) (unknown) (no (unknown) (unknown) Respiratory Rate (units (unknown) date) 17 26 H unknown) (unknown) (no (unknown) (unknown) Respiratory Rate (units (unknown) date) 17 unknown) (unknown) (no (unknown) (unknown) Respiratory Rate (units (unknown) date) 18 32 H unknown) (unknown) (no (unknown) (unknown) Respiratory Rate (units (unknown) date) 18 unknown) (unknown) (no (unknown) (unknown) Respiratory Rate (units (unknown) date) 19 18 unknown) (unknown) (no (unknown) (unknown) Respiratory Rate (units (unknown) date) 19 34 H 39 H unknown) (unknown) (no (unknown) (unknown) Respiratory Rate (units (unknown) date) 19 unknown) (unknown) (no (unknown) (unknown) Respiratory Rate (units (unknown) date) 20 unknown) (unknown) (no (unknown) (unknown) Respiratory Rate (units (unknown) date) 22 20 unknown) (unknown) (no (unknown) (unknown) Respiratory Rate (units (unknown) date) 23 17 16 unknown) (unknown) (no (unknown) (unknown) Respiratory Rate (units (unknown) date) 23 18 unknown) (unknown) (no (unknown) (unknown) Respiratory Rate (units (unknown) date) 24 19 unknown) (unknown) (no (unknown) (unknown) Respiratory Rate (units (unknown) date) 24 23 unknown) (unknown) (no (unknown) (unknown) Respiratory Rate (units (unknown) date) 27 H unknown) (unknown) (no (unknown) (unknown) Respiratory Rate (units (unknown) date) 29 H unknown) (unknown) (no (unknown) (unknown) Respiratory Rate (units (unknown) date) 30 H 24 unknown) (unknown) (no (unknown) (unknown) Respiratory Rate (units (unknown) date) unknown) (unknown) (no (unknown) (unknown) Review of Systems (units (unknown) date) unknown) (unknown) (no (unknown) (unknown) SARS-CoV-2 (PCR) (units (unknown) date) Negative unknown) (unknown) (no (unknown) (unknown) SARS-CoV-2 (PCR) (units (unknown) date) unknown) (unknown) (no (unknown) (unknown) Safety + (units (unkno wn) date) Behavioral: unknown) (unknown) (no (unknown) (unknown) Signed By: (units (unk nown) date) unknown) (unknown) (no (unknown) (unknown) Skin: Warm Very (units (unknown) date) dry, poor turgor, unknown) appears significantly dehydrated and wasting (unknown) (no (unknown) (unknown) Smoking Status (units (unknown) date) never unknown) (unknown) (no (unknown) (unknown) Sodium 135 L (units (u nknown) date) unknown) (unknown) (no (unknown) (unknown) Sodium (units (unkno wn) date) unknown) (unknown) (no (unknown) (unknown) Substance Use (units ( unknown) date) Type does not use unknown) (unknown) (no (unknown) (unknown) Surgical History (units (unknown) date) (Updated 06/16/22 unknown) @ 21:27 by Hawa Michael [facility]-) (unknown) (no (unknown) (unknown) Temperature 98.1 (units (unknown) date) F unknown) (unknown) (no (unknown) (unknown) Temperature (units (un known) date) unknown) (unknown) (no (unknown) (unknown) Time Patient (units (u nknown) date) Seen: 15:35 unknown) (unknown) (no (unknown) (unknown) Time Spent With (units (unknown) date) Patient unknown) (unknown) (no (unknown) (unknown) Tobacco + (units (unkn own) date) Substance use: unknown) (unknown) (no (unknown) (unknown) Total Bilirubin (units (unknown) date) 2.1 H unknown) (unknown) (no (unknown) (unknown) Total Bilirubin (units (unknown) date) unknown) (unknown) (no (unknown) (unknown) Total Creatine (units (unknown) date) Kinase 53 L unknown) (unknown) (no (unknown) (unknown) Total Creatine (units (unknown) date) Kinase unknown) (unknown) (no (unknown) (unknown) Total Protein 5.8 (units (unknown) date) L unknown) (unknown) (no (unknown) (unknown) Total Protein (units ( unknown) date) unknown) (unknown) (no (unknown) (unknown) Troponin I < (units (u nknown) date) 0.012 unknown) (unknown) (no (unknown) (unknown) Troponin I (units (unk nown) date) unknown) (unknown) (no (unknown) (unknown) Upon admit BP (units (u nknown) date) 149/78, unknown) tachycardic heart rate 154, tachypneic R 29, O2 saturation (unknown) (no (unknown) (unknown) Ur Bilirubin (units (u nknown) date) Confirm Positive H unknown) (unknown) (no (unknown) (unknown) Ur Bilirubin (units (u nknown) date) Confirm unknown) (unknown) (no (unknown) (unknown) Ur Culture (units (unk nown) date) Indicated? unknown) Specimen cultured (unknown) (no (unknown) (unknown) Ur Culture (units (unk nown) date) Indicated? unknown) (unknown) (no (unknown) (unknown) Ur Leukocyte (units (u nknown) date) Esterase Trace H unknown) (unknown) (no (unknown) (unknown) Ur Leukocyte (units (u nknown) date) Esterase unknown) (unknown) (no (unknown) (unknown) Ur Specific (units (un known) date) [place] 1.020 unknown) (unknown) (no (unknown) (unknown) Ur Specific (units (un known) date) [place] unknown) (unknown) (no (unknown) (unknown) Ur Squamous Epith (units (unknown) date) Cells 1-5 /hpf unknown) (unknown) (no (unknown) (unknown) Ur Squamous Epith (units (unknown) date) Cells unknown) (unknown) (no (unknown) (unknown) Urine Appearance (units (unknown) date) Cloudy unknown) (unknown) (no (unknown) (unknown) Urine Appearance (units (unknown) date) unknown) (unknown) (no (unknown) (unknown) Urine Bacteria (units (unknown) date) None seen unknown) (unknown) (no (unknown) (unknown) Urine Bacteria (units (unknown) date) unknown) (unknown) (no (unknown) (unknown) Urine Bilirubin (units (unknown) date) 3+ H unknown) (unknown) (no (unknown) (unknown) Urine Bilirubin (units (unknown) date) unknown) (unknown) (no (unknown) (unknown) Urine Color Brown (units (unknown) date) unknown) (unknown) (no (unknown) (unknown) Urine Color (units (un known) date) unknown) (unknown) (no (unknown) (unknown) Urine Glucose (units ( unknown) date) (UA) Negative unknown) (unknown) (no (unknown) (unknown) Urine Glucose (units ( unknown) date) (UA) unknown) (unknown) (no (unknown) (unknown) Urine Ketones 1+ (units (unknown) date) H unknown) (unknown) (no (unknown) (unknown) Urine Ketones (units ( unknown) date) unknown) (unknown) (no (unknown) (unknown) Urine Nitrate (units ( unknown) date) Positive H unknown) (unknown) (no (unknown) (unknown) Urine Nitrate (units ( unknown) date) unknown) (unknown) (no (unknown) (unknown) Urine Occult (units (u nknown) date) Blood Trace-intact unknown) (unknown) (no (unknown) (unknown) Urine Occult (units (u nknown) date) Blood unknown) (unknown) (no (unknown) (unknown) Urine Protein 1+ (units (unknown) date) H unknown) (unknown) (no (unknown) (unknown) Urine Protein (units ( unknown) date) unknown) (unknown) (no (unknown) (unknown) Urine RBC (units (unkn own) date) 10-30/hpf H unknown) (unknown) (no (unknown) (unknown) Urine RBC (units (unkn own) date) unknown) (unknown) (no (unknown) (unknown) Urine (units (unkno wn) date) Urobilinogen 1.0 unknown) (unknown) (no (unknown) (unknown) Urine (units (unkno wn) date) Urobilinogen unknown) (unknown) (no (unknown) (unknown) Urine WBC 1-5/hpf (units (unknown) date) unknown) (unknown) (no (unknown) (unknown) Urine WBC (units (unkn own) date) unknown) (unknown) (no (unknown) (unknown) Urine pH 6.5 (units (u nknown) date) unknown) (unknown) (no (unknown) (unknown) Urine pH (units (unkno wn) date) unknown) (unknown) (no (unknown) (unknown) Vital Signs (units (un known) date) unknown) (unknown) (no (unknown) (unknown) WBC 9.6 (units (unkno wn) date) unknown) (unknown) (no (unknown) (unknown) WBC (units (unkno wn) date) unknown) (unknown) (no (unknown) (unknown) [Embedded Image (units (unknown) date) Not Available] unknown) (unknown) (no (unknown) (unknown) [From Prevnar] (units (unknown) date) and feet x unknown) (unknown) (no (unknown) (unknown) a recent 30 lb (units (unknown) date) weight loss, and unknown) night sweats with a shuffling gait x6 weeks. He (unknown) (no (unknown) (unknown) abnormal. COVID, (units (unknown) date) influenza a/B/RSV unknown) negative. Head CT negative. CXR ?Possible (unknown) (no (unknown) (unknown) after. (units (unkno wn) date) unknown) (unknown) (no (unknown) (unknown) albumin 3.1, CK (units (unknown) date) 53, initial unknown) troponin negative, BNP 1430. EKG atrial sensed (unknown) (no (unknown) (unknown) alcohol intake (units (unknown) date) frequency a few unknown) times a month (unknown) (no (unknown) (unknown) amlodipine 5 mg (units (unknown) date) tablet 5 mg PO unknown) DAILY 06/16/22 06/16/22 History (unknown) (no (unknown) (unknown) and intact (units (unk nown) date) without rashes, unknown) ulcerations or petechiae. (unknown) (no (unknown) (unknown) and place, but a (units (unknown) date) very poor unknown) historian, stated that 'he came in today by himself (unknown) (no (unknown) (unknown) apixaban 5 mg (units ( unknown) date) tablet (Eliquis) 5 unknown) mg PO BID blood thinner 06/16/22 06/16/22 (unknown) (no (unknown) (unknown) appears is no (units ( unknown) date) distress at this unknown) time, no apparent jaundice, right upper quadrant (unknown) (no (unknown) (unknown) are present in (units (unknown) date) all 4 quadrants unknown) without guarding or rebound, no CVA tenderness. (unknown) (no (unknown) (unknown) attitude thought (units (unknown) date) context and unknown) judgment are inappropriate- confused, poor (unknown) (no (unknown) (unknown) because he had (units (unknown) date) black urine this unknown) morning'. He did not recall seeing Dr. Gillette, (unknown) (no (unknown) (unknown) bruit, no cardiac (units (unknown) date) pulsations unknown) present. (unknown) (no (unknown) (unknown) cachexia, (units (unkn own) date) weakness, malaise unknown) balance coordination issues, and concerns for (unknown) (no (unknown) (unknown) cardiology's (units (u nknown) date) office due to unknown) deteriorating health concerns. patient admitted for (unknown) (no (unknown) (unknown) cardiology's (units (u nknown) date) office due to his unknown) significant presentation of cachexia, weakness, (unknown) (no (unknown) (unknown) clear and mucous (units (unknown) date) membranes are dry. unknown) Neck is supple and symmetric, trachea is (unknown) (no (unknown) (unknown) conjugate to of (units (unknown) date) hands unknown) (unknown) (no (unknown) (unknown) demonstrated (units (u nknown) date) bibasilar unknown) infiltrates versus inflammatory pulmonary opacities mild (unknown) (no (unknown) (unknown) demonstrated (units (u nknown) date) escalating unknown) tachycardia with heart rates 111-154, and tachypneic (unknown) (no (unknown) (unknown) difficulty, (units (un known) date) struggles slightly unknown) with given directions. Patient has no WBC, but (unknown) (no (unknown) (unknown) distress at this (units (unknown) date) time. unknown) (unknown) (no (unknown) (unknown) fluticasone (units (un known) date) propionate 44 44 unknown) mcg inhalation DAILY 06/16/22 06/16/22 History (unknown) (no (unknown) (unknown) for mild sepsis, (units (unknown) date) transaminitis, unknown) UTI, encephalopathy. (unknown) (no (unknown) (unknown) gabapentin 300 mg (units (unknown) date) capsule 300 mg PO unknown) BID 06/16/22 06/16/22 History (unknown) (no (unknown) (unknown) greater than left (units (unknown) date) pulmonary unknown) effusion. SOFA:2 patient admitted for mild sepsis, (unknown) (no (unknown) (unknown) historian. (units (unk nown) date) unknown) (unknown) (no (unknown) (unknown) infiltrates (units (un known) date) versus unknown) inflammatory pulmonary opacities mild to moderate right (unknown) (no (unknown) (unknown) left shiftneut (units (unknown) date) 8200, initial unknown) lactate 4.3, repeat 2.7, procalcitonin 3.27, PT (unknown) (no (unknown) (unknown) malaise, balance (units (unknown) date) coordination unknown) issues, and concerns for neoplastic syndrome with (unknown) (no (unknown) (unknown) mcg/actuation HFA (units (unknown) date) aerosol inhaler unknown) (unknown) (no (unknown) (unknown) medication (units (unk nown) date) reconciliation unknown) accurately. (unknown) (no (unknown) (unknown) midline, no (units (un known) date) adenopathy, no unknown) thyroid enlargement, nontender, no masses palpated. (unknown) (no (unknown) (unknown) mild right and (units (unknown) date) retrocardiac unknown) opacities Chest CT demonstrated bibasilar (unknown) (no (unknown) (unknown) mild sepsis, (units (u nknown) date) transaminitis, unknown) UTI, encephalopathy. (unknown) (no (unknown) (unknown) negative, BNP (units ( unknown) date) 1430. 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 Patient denies any pain, and (unknown) (no (unknown) (unknown) obvious (units (unkno wn) date) deformity, unknown) crepitus, effusions, cyanosis, clubbing or edema present. (unknown) (no (unknown) (unknown) or labored (units (unk nown) date) breathing, mildly unknown) tachypneic. 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 Gillette (unknown) (no (unknown) (unknown) pain, or fever. (units (unknown) date) unknown) (unknown) (no (unknown) (unknown) pneumococcal (units (u nknown) date) 7-valent AdvReac unknown) Intermediate swelling Verified 06/16/22 12:46 (unknown) (no (unknown) (unknown) respiratory rate (units (unknown) date) in the 20s. unknown) (unknown) (no (unknown) (unknown) sensation to (units (u nknown) date) touch intact, no unknown) gross deficits noted of cranial nerves. (unknown) (no (unknown) (unknown) shuffling gait x6 (units (unknown) date) weeks. He was unknown) brought into the ED by his . Patient (unknown) (no (unknown) (unknown) tachycardia with (units (unknown) date) heart rates unknown) 111-154, and tachypneic respiratory rate in the (unknown) (no (unknown) (unknown) to moderate right (units (unknown) date) greater than left unknown) pulmonary effusion. SOFA:2 patient admitted (unknown) (no (unknown) (unknown) today; this time (units (unknown) date) is exclusive of unknown) procedural time. (unknown) (no (unknown) (unknown) transaminitis, (units (unknown) date) UTI, unknown) encephalopathy. (unknown) (no (unknown) (unknown) unsure if this is (units (unknown) date) the patient's unknown) baseline. Due to cognitive impairment unable to (unknown) (no (unknown) (unknown) ventricular paced (units (unknown) date) rhythm rate 72, unknown) abnormal. COVID, influenza a/B/RSV negative. (unknown) (no (unknown) (unknown) was brought into (units (unknown) date) the ED by his unknown) . In ED patient demonstrated escalating (unknown) (no (unknown) (unknown) wheezes, rhonchi, (units (unknown) date) or rales. unknown) Result panel 217 (unknown) (no (unknown) (unknown) (no value) (units (unk nown) date) unknown) (unknown) (no (unknown) (unknown) (Flovent HFA) (units ( unknown) date) unknown) (unknown) (no (unknown) (unknown) (past 8 hours): (units (unknown) date) unknown) (unknown) (no (unknown) (unknown) - CXR ?Possible (units (unknown) date) mild right and unknown) retrocardiac opacities (unknown) (no (unknown) (unknown) -Chest CT (units (unkn own) date) demonstrated unknown) bibasilar infiltrates versus inflammatory pulmonary (unknown) (no (unknown) (unknown) -ED:heart rates (units (unknown) date) 111-154, and unknown) tachypneic respiratory rate in the 20s. (unknown) (no (unknown) (unknown) -GGT 516, amylase (units (unknown) date) 59, lipase 45 unknown) (unknown) (no (unknown) (unknown) -Negative Fever, (units (unknown) date) jaundice, right unknown) upper quadrant pain (unknown) (no (unknown) (unknown) -R Factor: 0.4 (units (unknown) date) cholestatic injury unknown) (unknown) (no (unknown) (unknown) -SOFA:2 (units (unkno wn) date) unknown) (unknown) (no (unknown) (unknown) -WBC neg, neut# (units (unknown) date) 8200, initial unknown) lactate 4.3, repeat 2.7, procalcitonin 3.27, (unknown) (no (unknown) (unknown) -admit BP 149/78, (units (unknown) date) tachycardic heart unknown) rate 154, tachypneic R 29, O2 saturation 98% (unknown) (no (unknown) (unknown) -cachexia, (units (unk nown) date) weakness, malaise unknown) balance coordination issues, and concerns for (unknown) (no (unknown) (unknown) -phosphorus 4.1, (units (unknown) date) bili 2.1, AST 61, unknown) ALT 63, alk-phos 428, total protein 5.8,PT (unknown) (no (unknown) (unknown) -positive nitrate (units (unknown) date) urinalysis culture unknown) pending, transaminitis (unknown) (no (unknown) (unknown) [id number] (units (unkno wn) date) unknown) (unknown) (no (unknown) (unknown) 06/16/22 06/16/22 (units (unknown) date) 06/16/22 unknown) (unknown) (no (unknown) (unknown) 06/16/22 06/16/22 (units (unknown) date) unknown) (unknown) (no (unknown) (unknown) 06/16/22 12:35 (units (unknown) date) unknown) (unknown) (no (unknown) (unknown) 06/16/22 (units (unkno wn) date) unknown) (unknown) (no (unknown) (unknown) 1. Sepsis without (units (unknown) date) septic shock, unknown) likely hepatobiliary origin, and UTI, acute, (unknown) (no (unknown) (unknown) 12:35 12:35 12:35 (units (unknown) date) unknown) (unknown) (no (unknown) (unknown) 13:15 06/16/22 (units (unknown) date) unknown) (unknown) (no (unknown) (unknown) 13:30 (units (unkno wn) date) unknown) (unknown) (no (unknown) (unknown) 13:45 06/16/22 (units (unknown) date) unknown) (unknown) (no (unknown) (unknown) 13:46 06/16/22 (units (unknown) date) unknown) (unknown) (no (unknown) (unknown) 13:46 (units (unkno wn) date) unknown) (unknown) (no (unknown) (unknown) 14:00 06/16/22 (units (unknown) date) unknown) (unknown) (no (unknown) (unknown) 14:24 (units (unkno wn) date) unknown) (unknown) (no (unknown) (unknown) 14:30 06/16/22 (units (unknown) date) unknown) (unknown) (no (unknown) (unknown) 14:45 06/16/22 (units (unknown) date) unknown) (unknown) (no (unknown) (unknown) 15:00 (units (unkno wn) date) unknown) (unknown) (no (unknown) (unknown) 15:15 06/16/22 (units (unknown) date) unknown) (unknown) (no (unknown) (unknown) 15:30 06/16/22 (units (unknown) date) unknown) (unknown) (no (unknown) (unknown) 15:30 17:55 (units (un known) date) unknown) (unknown) (no (unknown) (unknown) 15:34 06/16/22 (units (unknown) date) unknown) (unknown) (no (unknown) (unknown) 15:34 (units (unkno wn) date) unknown) (unknown) (no (unknown) (unknown) 15:45 06/16/22 (units (unknown) date) unknown) (unknown) (no (unknown) (unknown) 15:45 (units (unkno wn) date) unknown) (unknown) (no (unknown) (unknown) 16:00 06/16/22 (units (unknown) date) unknown) (unknown) (no (unknown) (unknown) 16:15 06/16/22 (units (unknown) date) unknown) (unknown) (no (unknown) (unknown) 16:15 (units (unkno wn) date) unknown) (unknown) (no (unknown) (unknown) 16:30 06/16/22 (units (unknown) date) unknown) (unknown) (no (unknown) (unknown) 16:31 06/16/22 (units (unknown) date) unknown) (unknown) (no (unknown) (unknown) 16:31 (units (unkno wn) date) unknown) (unknown) (no (unknown) (unknown) 16:45 06/16/22 (units (unknown) date) unknown) (unknown) (no (unknown) (unknown) 17.6, INR 1.5, (units (unknown) date) PTT 38 unknown) (unknown) (no (unknown) (unknown) 17.6, INR 1.5, (units (unknown) date) PTT 38. Sodium unknown) 135, BUN 34, glucose 146, calcium 8.1, magnesium (unknown) (no (unknown) (unknown) 17:00 06/16/22 (units (unknown) date) unknown) (unknown) (no (unknown) (unknown) 17:00 (units (unkno wn) date) unknown) (unknown) (no (unknown) (unknown) 17:15 06/16/22 (units (unknown) date) unknown) (unknown) (no (unknown) (unknown) 17:15 (units (unkno wn) date) unknown) (unknown) (no (unknown) (unknown) 17:30 06/16/22 (units (unknown) date) unknown) (unknown) (no (unknown) (unknown) 17:45 (units (unkno wn) date) unknown) (unknown) (no (unknown) (unknown) 17:46 06/16/22 (units (unknown) date) unknown) (unknown) (no (unknown) (unknown) 17:59 (units (unkno wn) date) unknown) (unknown) (no (unknown) (unknown) 18:00 06/16/22 (units (unknown) date) unknown) (unknown) (no (unknown) (unknown) 18:01 06/16/22 (units (unknown) date) unknown) (unknown) (no (unknown) (unknown) 18:15 06/16/22 (units (unknown) date) unknown) (unknown) (no (unknown) (unknown) 18:15 (units (unkno wn) date) unknown) (unknown) (no (unknown) (unknown) 18:30 06/16/22 (units (unknown) date) unknown) (unknown) (no (unknown) (unknown) 18:30 (units (unkno wn) date) unknown) (unknown) (no (unknown) (unknown) 18:45 06/16/22 (units (unknown) date) unknown) (unknown) (no (unknown) (unknown) 19:00 06/16/22 (units (unknown) date) unknown) (unknown) (no (unknown) (unknown) 19:00 (units (unkno wn) date) unknown) (unknown) (no (unknown) (unknown) 19:15 06/16/22 (units (unknown) date) unknown) (unknown) (no (unknown) (unknown) 19:15 (units (unkno wn) date) unknown) (unknown) (no (unknown) (unknown) 19:30 06/16/22 (units (unknown) date) unknown) (unknown) (no (unknown) (unknown) 19:45 06/16/22 (units (unknown) date) unknown) (unknown) (no (unknown) (unknown) 19:45 (units (unkno wn) date) unknown) (unknown) (no (unknown) (unknown) 2. Transaminitis, (units (unknown) date) with elevated unknown) alkaline phosphate, acute, present on admission (unknown) (no (unknown) (unknown) 2.6, phosphorus (units (unknown) date) 4.1, bili 2.1, AST unknown) 61, ALT 63, alk-phos 428, total protein 5.8, (unknown) (no (unknown) (unknown) 20:00 06/16/22 (units (unknown) date) unknown) (unknown) (no (unknown) (unknown) 20:00 (units (unkno wn) date) unknown) (unknown) (no (unknown) (unknown) 20:15 06/16/22 (units (unknown) date) unknown) (unknown) (no (unknown) (unknown) 20:30 06/16/22 (units (unknown) date) unknown) (unknown) (no (unknown) (unknown) 20:30 (units (unkno wn) date) unknown) (unknown) (no (unknown) (unknown) 20:45 06/16/22 (units (unknown) date) unknown) (unknown) (no (unknown) (unknown) 20:46 06/16/22 (units (unknown) date) unknown) (unknown) (no (unknown) (unknown) 20:46 (units (unkno wn) date) unknown) (unknown) (no (unknown) (unknown) 20:55 (units (unkno wn) date) unknown) (unknown) (no (unknown) (unknown) 20s. During admit (units (unknown) date) interview patient unknown) is pleasantly confused orientated to self (unknown) (no (unknown) (unknown) 4 mos (units (unkno wn) date) unknown) (unknown) (no (unknown) (unknown) 4.3, repeat 2.7, (units (unknown) date) procalcitonin unknown) 3.27, . Sodium 135, BUN 34, glucose 146, (unknown) (no (unknown) (unknown) 428, total protein (units (unknown) date) 5.8, albumin 3.1, unknown) CK 53, initial troponin negative, BNP 1430. (unknown) (no (unknown) (unknown) 98% on room air. (units (unknown) date) Patient did get up unknown) and ambulate to the restroom w/MA without (unknown) (no (unknown) (unknown) 98% on room air. (units (unknown) date) Patient has no unknown) WBC, but left shiftneut 8200, initial lactate (unknown) (no (unknown) (unknown) ALT 63 H (units (unkno wn) date) unknown) (unknown) (no (unknown) (unknown) ALT (units (unkno wn) date) unknown) (unknown) (no (unknown) (unknown) APTT 38 H (units (unkn own) date) unknown) (unknown) (no (unknown) (unknown) APTT (units (unkno wn) date) unknown) (unknown) (no (unknown) (unknown) AST 61 H (units (unkno wn) date) unknown) (unknown) (no (unknown) (unknown) AST (units (unkno wn) date) unknown) (unknown) (no (unknown) (unknown) Abdomen: Soft (units ( unknown) date) nontender, unknown) negative for organomegaly, or masses. Bowel sounds (unknown) (no (unknown) (unknown) Age/Sex: 86 / M (units (unknown) date) unknown) (unknown) (no (unknown) (unknown) Albumin 3.1 L (units ( unknown) date) unknown) (unknown) (no (unknown) (unknown) Albumin (units (unkno wn) date) unknown) (unknown) (no (unknown) (unknown) Albumin/Globulin (units (unknown) date) Ratio 1.1 unknown) (unknown) (no (unknown) (unknown) Albumin/Globulin (units (unknown) date) Ratio unknown) (unknown) (no (unknown) (unknown) Alkaline (units (unkno wn) date) Phosphatase 428 H unknown) (unknown) (no (unknown) (unknown) Alkaline (units (unkno wn) date) Phosphatase unknown) (unknown) (no (unknown) (unknown) Allergies (units (unkn own) date) unknown) (unknown) (no (unknown) (unknown) Allergy/AdvReac (units (unknown) date) Type Severity unknown) Reaction Status Date / Time (unknown) (no (unknown) (unknown) Assessment + Plan (units (unknown) date) narrative: unknown) (unknown) (no (unknown) (unknown) Assessment + Plan (units (unknown) date) unknown) (unknown) (no (unknown) (unknown) Asthma (units (unkno wn) date) unknown) (unknown) (no (unknown) (unknown) Atrial (units (unkno wn) date) fibrillation unknown) (unknown) (no (unknown) (unknown) BUN 34 H (units (unkno wn) date) unknown) (unknown) (no (unknown) (unknown) BUN (units (unkno wn) date) unknown) (unknown) (no (unknown) (unknown) BUN/Creatinine (units (unknown) date) Ratio 34.3 H unknown) (unknown) (no (unknown) (unknown) BUN/Creatinine (units (unknown) date) Ratio unknown) (unknown) (no (unknown) (unknown) Baso # (Auto) 100 (units (unknown) date) unknown) (unknown) (no (unknown) (unknown) Baso # (Auto) (units ( unknown) date) unknown) (unknown) (no (unknown) (unknown) Baso % (Auto) 0.8 (units (unknown) date) unknown) (unknown) (no (unknown) (unknown) Baso % (Auto) (units ( unknown) date) unknown) (unknown) (no (unknown) (unknown) Blood Pressure (units (unknown) date) 141/57 H unknown) (unknown) (no (unknown) (unknown) Blood Pressure (units (unknown) date) 141/73 H unknown) (unknown) (no (unknown) (unknown) Blood Pressure (units (unknown) date) 142/65 H 156/70 H unknown) (unknown) (no (unknown) (unknown) Blood Pressure (units (unknown) date) 142/67 H unknown) (unknown) (no (unknown) (unknown) Blood Pressure (units (unknown) date) 143/67 H unknown) (unknown) (no (unknown) (unknown) Blood Pressure (units (unknown) date) 145/69 H unknown) (unknown) (no (unknown) (unknown) Blood Pressure (units (unknown) date) 146/69 H unknown) (unknown) (no (unknown) (unknown) Blood Pressure (units (unknown) date) 147/71 H 150/72 H unknown) (unknown) (no (unknown) (unknown) Blood Pressure (units (unknown) date) 149/68 H 130/59 L unknown) (unknown) (no (unknown) (unknown) Blood Pressure (units (unknown) date) 149/78 H 155/70 H unknown) (unknown) (no (unknown) (unknown) Blood Pressure (units (unknown) date) 150/73 H unknown) (unknown) (no (unknown) (unknown) Blood Pressure (units (unknown) date) 151/72 H unknown) (unknown) (no (unknown) (unknown) Blood Pressure (units (unknown) date) 154/73 H unknown) (unknown) (no (unknown) (unknown) Blood Pressure (units (unknown) date) 156/72 H 151/72 H unknown) (unknown) (no (unknown) (unknown) Blood Pressure (units (unknown) date) 162/114 H unknown) (unknown) (no (unknown) (unknown) Blood Pressure (units (unknown) date) 164/94 H 164/96 H unknown) (unknown) (no (unknown) (unknown) Blood Pressure (units (unknown) date) 179/74 H 179/94 H unknown) (unknown) (no (unknown) (unknown) Blood Pressure (units (unknown) date) 186/112 H 169/75 H unknown) (unknown) (no (unknown) (unknown) Blood Pressure (units (unknown) date) unknown) (unknown) (no (unknown) (unknown) CK-MB (CK-2) Rel (units (unknown) date) Index TNP unknown) (unknown) (no (unknown) (unknown) CK-MB (CK-2) Rel (units (unknown) date) Index unknown) (unknown) (no (unknown) (unknown) CK-MB (CK-2) TNP (units (unknown) date) unknown) (unknown) (no (unknown) (unknown) CK-MB (CK-2) (units (u nknown) date) unknown) (unknown) (no (unknown) (unknown) COVID, influenza (units (unknown) date) a/B/RSV negative unknown) (unknown) (no (unknown) (unknown) Calcium 8.1 L (units ( unknown) date) unknown) (unknown) (no (unknown) (unknown) Calcium (units (unkno wn) date) unknown) (unknown) (no (unknown) (unknown) Carbon Dioxide 28 (units (unknown) date) unknown) (unknown) (no (unknown) (unknown) Carbon Dioxide (units (unknown) date) unknown) (unknown) (no (unknown) (unknown) Cardio: regular (units (unknown) date) rate and rhythm unknown) without murmur, rubs, or gallops, no carotid (unknown) (no (unknown) (unknown) Chest: Equal (units (u nknown) date) expansion, unknown) positive kyphoscoliosis, no nasal flaring, retractions, (unknown) (no (unknown) (unknown) Chief complaint: (units (unknown) date) Pain near unknown) pacemaker (unknown) (no (unknown) (unknown) Chloride 99 (units (un known) date) unknown) (unknown) (no (unknown) (unknown) Chloride (units (unkno wn) date) unknown) (unknown) (no (unknown) (unknown) Chronic (units (unkno wn) date) anticoagulation unknown) (unknown) (no (unknown) (unknown) Creatinine 0.99 (units (unknown) date) unknown) (unknown) (no (unknown) (unknown) Creatinine (units (unk nown) date) unknown) (unknown) (no (unknown) (unknown) Critical Care (units ( unknown) date) time: unknown) (unknown) (no (unknown) (unknown) : 1935 (units (unknown) date) Acct:[id number] unknown) (unknown) (no (unknown) (unknown) Date Patient (units (u nknown) date) Seen: 06/16/22 unknown) (unknown) (no (unknown) (unknown) Date of Service: (units (unknown) date) 06/16/22 unknown) (unknown) (no (unknown) (unknown) Yoseph Cardoso is (units (unknown) date) a 86-year-old male unknown) with a history of atrial fibrillation, with (unknown) (no (unknown) (unknown) Due to patient's (units (unknown) date) cognitive unknown) impairment/encepha lopathy unable to obtain HPI, ROS, (unknown) (no (unknown) (unknown) EKG atrial sensed (units (unknown) date) ventricular paced unknown) rhythm rate 72, abnormal. . Head CT (unknown) (no (unknown) (unknown) Environment (units (un known) date) unknown) (unknown) (no (unknown) (unknown) Eos # (Auto) 0 (units (unknown) date) unknown) (unknown) (no (unknown) (unknown) Eos # (Auto) (units (u nknown) date) unknown) (unknown) (no (unknown) (unknown) Eos % (Auto) 0.1 (units (unknown) date) L unknown) (unknown) (no (unknown) (unknown) Eos % (Auto) (units (u nknown) date) unknown) (unknown) (no (unknown) (unknown) Essential (units (unkn own) date) hypertension unknown) (unknown) (no (unknown) (unknown) Estimated GFR > (units (unknown) date) 60 unknown) (unknown) (no (unknown) (unknown) Estimated GFR (units ( unknown) date) unknown) (unknown) (no (unknown) (unknown) Exam Narrative: (units (unknown) date) unknown) (unknown) (no (unknown) (unknown) Exam (units (unkno wn) date) unknown) (unknown) (no (unknown) (unknown) Family + Social (units (unknown) date) History unknown) (unknown) (no (unknown) (unknown) Family History (units (unknown) date) (Reviewed 06/17/22 unknown) @ 00:47 by Hawa Michael [facility]) (unknown) (no (unknown) (unknown) Father (units (unknown) date) Diabetes mellitus unknown) (unknown) (no (unknown) (unknown) Feels Safe in (units ( unknown) date) Current Yes, unknown) patient lives at home with his . (unknown) (no (unknown) (unknown) Full range of (units ( unknown) date) motion intact unknown) radial and pedal pulses are normal. (unknown) (no (unknown) (unknown) General: Patient (units (unknown) date) is a pleasantly unknown) confused cachectic, frail, elderly male, in no (unknown) (no (unknown) (unknown) Globulin 2.7 (units (u nknown) date) unknown) (unknown) (no (unknown) (unknown) Globulin (units (unkno wn) date) unknown) (unknown) (no (unknown) (unknown) Glucose 146 H (units ( unknown) date) unknown) (unknown) (no (unknown) (unknown) Glucose (units (unkno wn) date) unknown) (unknown) (no (unknown) (unknown) HEENT: (units (unkno wn) date) Normocephalic, unknown) atraumatic, extraocular muscles intact, oral pharynx is (unknown) (no (unknown) (unknown) Hct 46.6 (units (unkno wn) date) unknown) (unknown) (no (unknown) (unknown) Hct (units (unkno wn) date) unknown) (unknown) (no (unknown) (unknown) Head CT negative. 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 (unknown) (no (unknown) (unknown) History (units (unkno wn) date) unknown) (unknown) (no (unknown) (unknown) Home Medications (units (unknown) date) and Allergies unknown) (unknown) (no (unknown) (unknown) Home Medications (units (unknown) date) unknown) (unknown) (no (unknown) (unknown) I spent a total (units (unknown) date) of [] minutes of unknown) critical care time on this patient's care (unknown) (no (unknown) (unknown) INR 1.5 H (units (unkn own) date) unknown) (unknown) (no (unknown) (unknown) INR (units (unkno wn) date) unknown) (unknown) (no (unknown) (unknown) Influenza A (units (un known) date) (RT-PCR) Flu a unknown) negative (unknown) (no (unknown) (unknown) Influenza A (units (un known) date) (RT-PCR) unknown) (unknown) (no (unknown) (unknown) Influenza B (units (un known) date) (RT-PCR) Flu b unknown) negative (unknown) (no (unknown) (unknown) Influenza B (units (un known) date) (RT-PCR) unknown) (unknown) (no (unknown) (unknown) [facility] (units (unknown) date) [address] unknown) [place] [address] (unknown) (no (unknown) (unknown) Laboratory (units (unk nown) date) Results - last 24 unknown) hr (unknown) (no (unknown) (unknown) Labs (units (unkno wn) date) unknown) (unknown) (no (unknown) (unknown) Labs: (units (unkno wn) date) unknown) (unknown) (no (unknown) (unknown) Lactate 2.7 H (units ( unknown) date) unknown) (unknown) (no (unknown) (unknown) Lactate 4.3 H* (units (unknown) date) unknown) (unknown) (no (unknown) (unknown) Lactate (units (unkno wn) date) unknown) (unknown) (no (unknown) (unknown) Lipase 45 (units (unkn own) date) unknown) (unknown) (no (unknown) (unknown) Lipase (units (unkno wn) date) unknown) (unknown) (no (unknown) (unknown) Lungs: (units (unkno wn) date) Auscultation of unknown) all lung troy are clear without adventitious sounds, (unknown) (no (unknown) (unknown) Lymph # (Auto) (units (unknown) date) 400 L unknown) (unknown) (no (unknown) (unknown) Lymph # (Auto) (units (unknown) date) unknown) (unknown) (no (unknown) (unknown) Lymph % (Auto) (units (unknown) date) 4.6 L unknown) (unknown) (no (unknown) (unknown) Lymph % (Auto) (units (unknown) date) unknown) (unknown) (no (unknown) (unknown) MCH 30.4 (units (unkno wn) date) unknown) (unknown) (no (unknown) (unknown) MCH (units (unkno wn) date) unknown) (unknown) (no (unknown) (unknown) MCHC 33.0 (units (unkn own) date) unknown) (unknown) (no (unknown) (unknown) MCHC (units (unkno wn) date) unknown) (unknown) (no (unknown) (unknown) MCV 92.4 (units (unkno wn) date) unknown) (unknown) (no (unknown) (unknown) MCV (units (unkno wn) date) unknown) (unknown) (no (unknown) (unknown) Magnesium 2.6 H (units (unknown) date) unknown) (unknown) (no (unknown) (unknown) Magnesium (units (unkn own) date) unknown) (unknown) (no (unknown) (unknown) Medical History (units (unknown) date) (Updated 06/17/22 unknown) @ 00:55 by CASEY Crystal) (unknown) (no (unknown) (unknown) Medication (units (unk nown) date) Instructions unknown) Recorded Confirmed Type (unknown) (no (unknown) (unknown) Meds (units (unkno wn) date) unknown) (unknown) (no (unknown) (unknown) [place] # (Auto) 900 (units (unknown) date) unknown) (unknown) (no (unknown) (unknown) [place] # (Auto) (units ( unknown) date) unknown) (unknown) (no (unknown) (unknown) [place] % (Auto) 9.4 (units (unknown) date) unknown) (unknown) (no (unknown) (unknown) [place] % (Auto) (units ( unknown) date) unknown) (unknown) (no (unknown) (unknown) Mother (units (unknown) date) No problems noted. unknown) (unknown) (no (unknown) (unknown) Musculoskeletal: (units (unknown) date) Diffuse but equal unknown) throughout all extremity muscle wasting, no (unknown) (no (unknown) (unknown) NT-Pro-B (units (unkno wn) date) Natriuret Pep 1430 unknown) H (unknown) (no (unknown) (unknown) NT-Pro-B (units (unkno wn) date) Natriuret Pep unknown) (unknown) (no (unknown) (unknown) Narrative (units (unkn own) date) unknown) (unknown) (no (unknown) (unknown) Narrative: (units (unk nown) date) unknown) (unknown) (no (unknown) (unknown) Negative for JVD (units (unknown) date) unknown) (unknown) (no (unknown) (unknown) Neuro: Alert and (units (unknown) date) orientated x2 unknown) Person + Place , moves all extremities, (unknown) (no (unknown) (unknown) Neut # (Auto) (units ( unknown) date) 8200 H unknown) (unknown) (no (unknown) (unknown) Neut # (Auto) (units ( unknown) date) unknown) (unknown) (no (unknown) (unknown) Neut % (Auto) (units ( unknown) date) 85.1 H unknown) (unknown) (no (unknown) (unknown) Neut % (Auto) (units ( unknown) date) unknown) (unknown) (no (unknown) (unknown) Objective (units (unkn own) date) unknown) (unknown) (no (unknown) (unknown) Oxygen Delivery (units (unknown) date) Method Room Air unknown) (unknown) (no (unknown) (unknown) Oxygen Delivery (units (unknown) date) Method unknown) (unknown) (no (unknown) (unknown) PT 17.6 H (units (unkn own) date) unknown) (unknown) (no (unknown) (unknown) PT (units (unkno wn) date) unknown) (unknown) (no (unknown) (unknown) Pacemaker (units (unkn own) date) unknown) (unknown) (no (unknown) (unknown) Patient History (units (unknown) date) unknown) (unknown) (no (unknown) (unknown) Patient: (units (unkno wn) date) Yoseph Cardoso unknown) MR#: [id number] (unknown) (no (unknown) (unknown) Phosphorus 4.1 H (units (unknown) date) unknown) (unknown) (no (unknown) (unknown) Phosphorus (units (unk nown) date) unknown) (unknown) (no (unknown) (unknown) Plt Count 222 (units ( unknown) date) unknown) (unknown) (no (unknown) (unknown) Plt Count (units (unkn own) date) unknown) (unknown) (no (unknown) (unknown) Potassium 4.8 (units ( unknown) date) unknown) (unknown) (no (unknown) (unknown) Potassium (units (unkn own) date) unknown) (unknown) (no (unknown) (unknown) Procalcitonin (units ( unknown) date) 3.27 H unknown) (unknown) (no (unknown) (unknown) Procalcitonin (units ( unknown) date) unknown) (unknown) (no (unknown) (unknown) Provider: (units (unkn own) date) Hawa Michael unknown) 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 (unknown) (no (unknown) (unknown) Psych: Patient (units (unknown) date) has a well-kept unknown) appearance, pleasant affect, mental status (unknown) (no (unknown) (unknown) Pulse Oximetry 93 (units (unknown) date) 100 unknown) (unknown) (no (unknown) (unknown) Pulse Oximetry 94 (units (unknown) date) 96 unknown) (unknown) (no (unknown) (unknown) Pulse Oximetry 95 (units (unknown) date) unknown) (unknown) (no (unknown) (unknown) Pulse Oximetry 96 (units (unknown) date) 91 unknown) (unknown) (no (unknown) (unknown) Pulse Oximetry 96 (units (unknown) date) 99 unknown) (unknown) (no (unknown) (unknown) Pulse Oximetry 96 (units (unknown) date) unknown) (unknown) (no (unknown) (unknown) Pulse Oximetry 97 (units (unknown) date) 96 97 unknown) (unknown) (no (unknown) (unknown) Pulse Oximetry 97 (units (unknown) date) 97 98 unknown) (unknown) (no (unknown) (unknown) Pulse Oximetry 97 (units (unknown) date) 97 unknown) (unknown) (no (unknown) (unknown) Pulse Oximetry 97 (units (unknown) date) unknown) (unknown) (no (unknown) (unknown) Pulse Oximetry 98 (units (unknown) date) 97 unknown) (unknown) (no (unknown) (unknown) Pulse Oximetry 98 (units (unknown) date) unknown) (unknown) (no (unknown) (unknown) Pulse Oximetry (units (unknown) date) unknown) (unknown) (no (unknown) (unknown) Pulse Rate 111 H (units (unknown) date) unknown) (unknown) (no (unknown) (unknown) Pulse Rate 114 H (units (unknown) date) 118 H unknown) (unknown) (no (unknown) (unknown) Pulse Rate 154 H (units (unknown) date) unknown) (unknown) (no (unknown) (unknown) Pulse Rate 72 66 (units (unknown) date) unknown) (unknown) (no (unknown) (unknown) Pulse Rate 72 71 (units (unknown) date) unknown) (unknown) (no (unknown) (unknown) Pulse Rate 72 74 (units (unknown) date) unknown) (unknown) (no (unknown) (unknown) Pulse Rate 72 (units ( unknown) date) unknown) (unknown) (no (unknown) (unknown) Pulse Rate 73 74 (units (unknown) date) unknown) (unknown) (no (unknown) (unknown) Pulse Rate 73 87 (units (unknown) date) 98 H unknown) (unknown) (no (unknown) (unknown) Pulse Rate 73 (units ( unknown) date) unknown) (unknown) (no (unknown) (unknown) Pulse Rate 74 104 (units (unknown) date) H 106 H unknown) (unknown) (no (unknown) (unknown) Pulse Rate 75 116 (units (unknown) date) H unknown) (unknown) (no (unknown) (unknown) Pulse Rate 75 70 (units (unknown) date) unknown) (unknown) (no (unknown) (unknown) Pulse Rate 75 74 (units (unknown) date) 74 unknown) (unknown) (no (unknown) (unknown) Pulse Rate 75 (units ( unknown) date) unknown) (unknown) (no (unknown) (unknown) Pulse Rate 76 (units ( unknown) date) unknown) (unknown) (no (unknown) (unknown) Pulse Rate 78 75 (units (unknown) date) unknown) (unknown) (no (unknown) (unknown) Pulse Rate 84 77 (units (unknown) date) unknown) (unknown) (no (unknown) (unknown) Pulse Rate 86 72 (units (unknown) date) unknown) (unknown) (no (unknown) (unknown) Pulse Rate 98 H (units (unknown) date) unknown) (unknown) (no (unknown) (unknown) RBC 5.05 (units (unkno wn) date) unknown) (unknown) (no (unknown) (unknown) RBC (units (unkno wn) date) unknown) (unknown) (no (unknown) (unknown) RDW 14.4 (units (unkno wn) date) unknown) (unknown) (no (unknown) (unknown) RDW (units (unkno wn) date) unknown) (unknown) (no (unknown) (unknown) RSV (PCR) (units (unkn own) date) Negative unknown) (unknown) (no (unknown) (unknown) RSV (PCR) (units (unkn own) date) unknown) (unknown) (no (unknown) (unknown) Respiratory Rate (units (unknown) date) 12 25 H unknown) (unknown) (no (unknown) (unknown) Respiratory Rate (units (unknown) date) 13 26 H unknown) (unknown) (no (unknown) (unknown) Respiratory Rate (units (unknown) date) 16 20 unknown) (unknown) (no (unknown) (unknown) Respiratory Rate (units (unknown) date) 17 26 H unknown) (unknown) (no (unknown) (unknown) Respiratory Rate (units (unknown) date) 17 unknown) (unknown) (no (unknown) (unknown) Respiratory Rate (units (unknown) date) 18 32 H unknown) (unknown) (no (unknown) (unknown) Respiratory Rate (units (unknown) date) 18 unknown) (unknown) (no (unknown) (unknown) Respiratory Rate (units (unknown) date) 19 18 unknown) (unknown) (no (unknown) (unknown) Respiratory Rate (units (unknown) date) 19 34 H 39 H unknown) (unknown) (no (unknown) (unknown) Respiratory Rate (units (unknown) date) 19 unknown) (unknown) (no (unknown) (unknown) Respiratory Rate (units (unknown) date) 20 unknown) (unknown) (no (unknown) (unknown) Respiratory Rate (units (unknown) date) 22 20 unknown) (unknown) (no (unknown) (unknown) Respiratory Rate (units (unknown) date) 23 17 16 unknown) (unknown) (no (unknown) (unknown) Respiratory Rate (units (unknown) date) 23 18 unknown) (unknown) (no (unknown) (unknown) Respiratory Rate (units (unknown) date) 24 19 unknown) (unknown) (no (unknown) (unknown) Respiratory Rate (units (unknown) date) 24 23 unknown) (unknown) (no (unknown) (unknown) Respiratory Rate (units (unknown) date) 27 H unknown) (unknown) (no (unknown) (unknown) Respiratory Rate (units (unknown) date) 29 H unknown) (unknown) (no (unknown) (unknown) Respiratory Rate (units (unknown) date) 30 H 24 unknown) (unknown) (no (unknown) (unknown) Respiratory Rate (units (unknown) date) unknown) (unknown) (no (unknown) (unknown) Review of Systems (units (unknown) date) unknown) (unknown) (no (unknown) (unknown) SARS-CoV-2 (PCR) (units (unknown) date) Negative unknown) (unknown) (no (unknown) (unknown) SARS-CoV-2 (PCR) (units (unknown) date) unknown) (unknown) (no (unknown) (unknown) Safety + (units (unkno wn) date) Behavioral: unknown) (unknown) (no (unknown) (unknown) Signed By: (units (unk nown) date) unknown) (unknown) (no (unknown) (unknown) Skin: Warm Very (units (unknown) date) dry, poor turgor, unknown) appears significantly dehydrated and wasting (unknown) (no (unknown) (unknown) Smoking Status (units (unknown) date) never unknown) (unknown) (no (unknown) (unknown) Sodium 135 L (units (u nknown) date) unknown) (unknown) (no (unknown) (unknown) Sodium (units (unkno wn) date) unknown) (unknown) (no (unknown) (unknown) Substance Use (units ( unknown) date) Type does not use unknown) (unknown) (no (unknown) (unknown) Surgical History (units (unknown) date) (Updated 06/16/22 unknown) @ 21:27 by Hawa Michael [facility]) (unknown) (no (unknown) (unknown) Temperature 98.1 (units (unknown) date) F unknown) (unknown) (no (unknown) (unknown) Temperature (units (un known) date) unknown) (unknown) (no (unknown) (unknown) Time Patient (units (u nknown) date) Seen: 15:35 unknown) (unknown) (no (unknown) (unknown) Time Spent With (units (unknown) date) Patient unknown) (unknown) (no (unknown) (unknown) Tobacco + (units (unkn own) date) Substance use: unknown) (unknown) (no (unknown) (unknown) Total Bilirubin (units (unknown) date) 2.1 H unknown) (unknown) (no (unknown) (unknown) Total Bilirubin (units (unknown) date) unknown) (unknown) (no (unknown) (unknown) Total Creatine (units (unknown) date) Kinase 53 L unknown) (unknown) (no (unknown) (unknown) Total Creatine (units (unknown) date) Kinase unknown) (unknown) (no (unknown) (unknown) Total Protein 5.8 (units (unknown) date) L unknown) (unknown) (no (unknown) (unknown) Total Protein (units ( unknown) date) unknown) (unknown) (no (unknown) (unknown) Troponin I < (units (u nknown) date) 0.012 unknown) (unknown) (no (unknown) (unknown) Troponin I (units (unk nown) date) unknown) (unknown) (no (unknown) (unknown) Upon admit BP (units (u nknown) date) 149/78, unknown) tachycardic heart rate 154, tachypneic R 29, O2 saturation (unknown) (no (unknown) (unknown) Ur Bilirubin (units (u nknown) date) Confirm Positive H unknown) (unknown) (no (unknown) (unknown) Ur Bilirubin (units (u nknown) date) Confirm unknown) (unknown) (no (unknown) (unknown) Ur Culture (units (unk nown) date) Indicated? unknown) Specimen cultured (unknown) (no (unknown) (unknown) Ur Culture (units (unk nown) date) Indicated? unknown) (unknown) (no (unknown) (unknown) Ur Leukocyte (units (u nknown) date) Esterase Trace H unknown) (unknown) (no (unknown) (unknown) Ur Leukocyte (units (u nknown) date) Esterase unknown) (unknown) (no (unknown) (unknown) Ur Specific (units (un known) date) [place] 1.020 unknown) (unknown) (no (unknown) (unknown) Ur Specific (units (un known) date) [place] unknown) (unknown) (no (unknown) (unknown) Ur Squamous Epith (units (unknown) date) Cells 1-5 /hpf unknown) (unknown) (no (unknown) (unknown) Ur Squamous Epith (units (unknown) date) Cells unknown) (unknown) (no (unknown) (unknown) Urine Appearance (units (unknown) date) Cloudy unknown) (unknown) (no (unknown) (unknown) Urine Appearance (units (unknown) date) unknown) (unknown) (no (unknown) (unknown) Urine Bacteria (units (unknown) date) None seen unknown) (unknown) (no (unknown) (unknown) Urine Bacteria (units (unknown) date) unknown) (unknown) (no (unknown) (unknown) Urine Bilirubin (units (unknown) date) 3+ H unknown) (unknown) (no (unknown) (unknown) Urine Bilirubin (units (unknown) date) unknown) (unknown) (no (unknown) (unknown) Urine Color Brown (units (unknown) date) unknown) (unknown) (no (unknown) (unknown) Urine Color (units (un known) date) unknown) (unknown) (no (unknown) (unknown) Urine Glucose (units ( unknown) date) (UA) Negative unknown) (unknown) (no (unknown) (unknown) Urine Glucose (units ( unknown) date) (UA) unknown) (unknown) (no (unknown) (unknown) Urine Ketones 1+ (units (unknown) date) H unknown) (unknown) (no (unknown) (unknown) Urine Ketones (units ( unknown) date) unknown) (unknown) (no (unknown) (unknown) Urine Nitrate (units ( unknown) date) Positive H unknown) (unknown) (no (unknown) (unknown) Urine Nitrate (units ( unknown) date) unknown) (unknown) (no (unknown) (unknown) Urine Occult (units (u nknown) date) Blood Trace-intact unknown) (unknown) (no (unknown) (unknown) Urine Occult (units (u nknown) date) Blood unknown) (unknown) (no (unknown) (unknown) Urine Protein 1+ (units (unknown) date) H unknown) (unknown) (no (unknown) (unknown) Urine Protein (units ( unknown) date) unknown) (unknown) (no (unknown) (unknown) Urine RBC (units (unkn own) date) 10-30/hpf H unknown) (unknown) (no (unknown) (unknown) Urine RBC (units (unkn own) date) unknown) (unknown) (no (unknown) (unknown) Urine (units (unkno wn) date) Urobilinogen 1.0 unknown) (unknown) (no (unknown) (unknown) Urine (units (unkno wn) date) Urobilinogen unknown) (unknown) (no (unknown) (unknown) Urine WBC 1-5/hpf (units (unknown) date) unknown) (unknown) (no (unknown) (unknown) Urine WBC (units (unkn own) date) unknown) (unknown) (no (unknown) (unknown) Urine pH 6.5 (units (u nknown) date) unknown) (unknown) (no (unknown) (unknown) Urine pH (units (unkno wn) date) unknown) (unknown) (no (unknown) (unknown) Vital Signs (units (un known) date) unknown) (unknown) (no (unknown) (unknown) WBC 9.6 (units (unkno wn) date) unknown) (unknown) (no (unknown) (unknown) WBC (units (unkno wn) date) unknown) (unknown) (no (unknown) (unknown) [Embedded Image (units (unknown) date) Not Available] unknown) (unknown) (no (unknown) (unknown) [From Prevnar] (units (unknown) date) and feet x unknown) (unknown) (no (unknown) (unknown) a recent 30 lb (units (unknown) date) weight loss, and unknown) night sweats with a shuffling gait x6 weeks. He (unknown) (no (unknown) (unknown) after. (units (unkno wn) date) unknown) (unknown) (no (unknown) (unknown) albumin 3.1, CK (units (unknown) date) 53, initial unknown) troponin negative, BNP 1430. EKG atrial sensed (unknown) (no (unknown) (unknown) alcohol intake (units (unknown) date) frequency a few unknown) times a month (unknown) (no (unknown) (unknown) amlodipine 5 mg (units (unknown) date) tablet 5 mg PO unknown) DAILY 06/16/22 06/16/22 History (unknown) (no (unknown) (unknown) and intact (units (unk nown) date) without rashes, unknown) ulcerations or petechiae. (unknown) (no (unknown) (unknown) and place, but a (units (unknown) date) very poor unknown) historian, stated that 'he came in today by himself (unknown) (no (unknown) (unknown) apixaban 5 mg (units ( unknown) date) tablet (Eliquis) 5 unknown) mg PO BID blood thinner 06/16/22 06/16/22 (unknown) (no (unknown) (unknown) appears is no (units ( unknown) date) distress at this unknown) time, no apparent jaundice, right upper quadrant (unknown) (no (unknown) (unknown) are present in (units (unknown) date) all 4 quadrants unknown) without guarding or rebound, no CVA tenderness. (unknown) (no (unknown) (unknown) attitude thought (units (unknown) date) context and unknown) judgment are inappropriate- confused, poor (unknown) (no (unknown) (unknown) because he had (units (unknown) date) black urine this unknown) morning'. He did not recall seeing Dr. Gillette, (unknown) (no (unknown) (unknown) bruit, no cardiac (units (unknown) date) pulsations unknown) present. (unknown) (no (unknown) (unknown) calcium 8.1, (units (u nknown) date) magnesium 2.6, unknown) phosphorus 4.1, bili 2.1, AST 61, ALT 63, alk-phos (unknown) (no (unknown) (unknown) cardiology's (units (u nknown) date) office due to unknown) deteriorating health concerns. patient admitted for (unknown) (no (unknown) (unknown) cardiology's (units (u nknown) date) office due to his unknown) significant presentation of cachexia, weakness, (unknown) (no (unknown) (unknown) clear and mucous (units (unknown) date) membranes are dry. unknown) Neck is supple and symmetric, trachea is (unknown) (no (unknown) (unknown) conjugate to of (units (unknown) date) hands unknown) (unknown) (no (unknown) (unknown) demonstrated (units (u nknown) date) bibasilar unknown) infiltrates versus inflammatory pulmonary opacities mild (unknown) (no (unknown) (unknown) difficulty, (units (un known) date) struggles slightly unknown) with given directions. Patient has no WBC, but (unknown) (no (unknown) (unknown) distress at this (units (unknown) date) time. unknown) (unknown) (no (unknown) (unknown) fluticasone (units (un known) date) propionate 44 44 unknown) mcg inhalation DAILY 06/16/22 06/16/22 History (unknown) (no (unknown) (unknown) for mild sepsis, (units (unknown) date) transaminitis, unknown) UTI, encephalopathy. (unknown) (no (unknown) (unknown) gabapentin 300 mg (units (unknown) date) capsule 300 mg PO unknown) BID 06/16/22 06/16/22 History (unknown) (no (unknown) (unknown) historian. (units (unk nown) date) unknown) (unknown) (no (unknown) (unknown) left shiftneut (units (unknown) date) 8200, initial unknown) lactate 4.3, repeat 2.7, procalcitonin 3.27, PT (unknown) (no (unknown) (unknown) malaise, balance (units (unknown) date) coordination unknown) issues, and concerns for neoplastic syndrome with (unknown) (no (unknown) (unknown) mcg/actuation HFA (units (unknown) date) aerosol inhaler unknown) (unknown) (no (unknown) (unknown) medication (units (unk nown) date) reconciliation unknown) accurately. (unknown) (no (unknown) (unknown) midline, no (units (un known) date) adenopathy, no unknown) thyroid enlargement, nontender, no masses palpated. (unknown) (no (unknown) (unknown) mild sepsis, (units (u nknown) date) transaminitis, unknown) UTI, encephalopathy. (unknown) (no (unknown) (unknown) negative. 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 Patient denies any pain, and (unknown) (no (unknown) (unknown) obvious (units (unkno wn) date) deformity, unknown) crepitus, effusions, cyanosis, clubbing or edema present. (unknown) (no (unknown) (unknown) on room air. (units (u nknown) date) unknown) (unknown) (no (unknown) (unknown) opacities mild to (units (unknown) date) moderate right unknown) greater than left pulmonary effusion. (unknown) (no (unknown) (unknown) or labored (units (unk nown) date) breathing, mildly unknown) tachypneic. 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 Gillette (unknown) (no (unknown) (unknown) pain, or fever. (units (unknown) date) unknown) (unknown) (no (unknown) (unknown) pneumococcal (units (u nknown) date) 7-valent AdvReac unknown) Intermediate swelling Verified 06/16/22 12:46 (unknown) (no (unknown) (unknown) present on (units (unk nown) date) admission unknown) (unknown) (no (unknown) (unknown) sensation to (units (u nknown) date) touch intact, no unknown) gross deficits noted of cranial nerves. (unknown) (no (unknown) (unknown) shuffling gait x6 (units (unknown) date) weeks. unknown) (unknown) (no (unknown) (unknown) tachycardia with (units (unknown) date) heart rates unknown) 111-154, and tachypneic respiratory rate in the (unknown) (no (unknown) (unknown) to moderate right (units (unknown) date) greater than left unknown) pulmonary effusion. SOFA:2 patient admitted (unknown) (no (unknown) (unknown) to moderate right (units (unknown) date) greater than left unknown) pulmonary effusion. patient admitted for (unknown) (no (unknown) (unknown) today; this time (units (unknown) date) is exclusive of unknown) procedural time. (unknown) (no (unknown) (unknown) unsure if this is (units (unknown) date) the patient's unknown) baseline. Due to cognitive impairment unable to (unknown) (no (unknown) (unknown) ventricular paced (units (unknown) date) rhythm rate 72, unknown) abnormal. COVID, influenza a/B/RSV negative. (unknown) (no (unknown) (unknown) was brought into (units (unknown) date) the ED by his unknown) . In ED patient demonstrated escalating (unknown) (no (unknown) (unknown) wheezes, rhonchi, (units (unknown) date) or rales. unknown) Result panel 218 (unknown) (no (unknown) (unknown) (no value) (units (unk nown) date) unknown) (unknown) (no (unknown) (unknown) (Flovent HFA) (units ( unknown) date) unknown) (unknown) (no (unknown) (unknown) (past 8 hours): (units (unknown) date) unknown) (unknown) (no (unknown) (unknown) - CXR ?Possible (units (unknown) date) mild right and unknown) retrocardiac opacities (unknown) (no (unknown) (unknown) -ABD/Pelvis (units (unk nown) date) CT:?Multiple unknown) ill-defined hypoattenuating mass lesions throughout the (unknown) (no (unknown) (unknown) -Chest CT (units (unkn own) date) demonstrated unknown) bibasilar infiltrates versus inflammatory pulmonary (unknown) (no (unknown) (unknown) -ED:heart rates (units (unknown) date) 111-154, and unknown) tachypneic respiratory rate in the 20s. (unknown) (no (unknown) (unknown) -GGT 516, amylase (units (unknown) date) 59, lipase 45 unknown) (unknown) (no (unknown) (unknown) -Negative Fever, (units (unknown) date) jaundice, right unknown) upper quadrant pain (unknown) (no (unknown) (unknown) -R Factor: 0.4 (units (unknown) date) cholestatic injury unknown) (unknown) (no (unknown) (unknown) -SOFA:2 (units (unkno wn) date) unknown) (unknown) (no (unknown) (unknown) -WBC neg, neut# (units (unknown) date) 8200, initial unknown) lactate 4.3, repeat 2.7, procalcitonin 3.27, (unknown) (no (unknown) (unknown) -admit BP 149/78, (units (unknown) date) tachycardic heart unknown) rate 154, tachypneic R 29, O2 saturation 98% (unknown) (no (unknown) (unknown) -cachexia, (units (unk nown) date) weakness, malaise unknown) balance coordination issues, and concerns for (unknown) (no (unknown) (unknown) -phosphorus 4.1, (units (unknown) date) bili 2.1, AST 61, unknown) ALT 63, alk-phos 428, total protein 5.8,PT (unknown) (no (unknown) (unknown) -positive nitrate (units (unknown) date) urinalysis culture unknown) pending, transaminitis (unknown) (no (unknown) (unknown) [id number] (units (unkno wn) date) unknown) (unknown) (no (unknown) (unknown) 06/16/22 06/16/22 (units (unknown) date) 06/16/22 unknown) (unknown) (no (unknown) (unknown) 06/16/22 06/16/22 (units (unknown) date) unknown) (unknown) (no (unknown) (unknown) 06/16/22 12:35 (units (unknown) date) unknown) (unknown) (no (unknown) (unknown) 06/16/22 (units (unkno wn) date) unknown) (unknown) (no (unknown) (unknown) 1. Sepsis without (units (unknown) date) septic shock, unknown) likely hepatobiliary origin, and UTI, acute, (unknown) (no (unknown) (unknown) 12:35 12:35 12:35 (units (unknown) date) unknown) (unknown) (no (unknown) (unknown) 13:15 06/16/22 (units (unknown) date) unknown) (unknown) (no (unknown) (unknown) 13:30 (units (unkno wn) date) unknown) (unknown) (no (unknown) (unknown) 13:45 06/16/22 (units (unknown) date) unknown) (unknown) (no (unknown) (unknown) 13:46 06/16/22 (units (unknown) date) unknown) (unknown) (no (unknown) (unknown) 13:46 (units (unkno wn) date) unknown) (unknown) (no (unknown) (unknown) 14:00 06/16/22 (units (unknown) date) unknown) (unknown) (no (unknown) (unknown) 14:24 (units (unkno wn) date) unknown) (unknown) (no (unknown) (unknown) 14:30 06/16/22 (units (unknown) date) unknown) (unknown) (no (unknown) (unknown) 14:45 06/16/22 (units (unknown) date) unknown) (unknown) (no (unknown) (unknown) 15:00 (units (unkno wn) date) unknown) (unknown) (no (unknown) (unknown) 15:15 06/16/22 (units (unknown) date) unknown) (unknown) (no (unknown) (unknown) 15:30 06/16/22 (units (unknown) date) unknown) (unknown) (no (unknown) (unknown) 15:30 17:55 (units (un known) date) unknown) (unknown) (no (unknown) (unknown) 15:34 06/16/22 (units (unknown) date) unknown) (unknown) (no (unknown) (unknown) 15:34 (units (unkno wn) date) unknown) (unknown) (no (unknown) (unknown) 15:45 06/16/22 (units (unknown) date) unknown) (unknown) (no (unknown) (unknown) 15:45 (units (unkno wn) date) unknown) (unknown) (no (unknown) (unknown) 16:00 06/16/22 (units (unknown) date) unknown) (unknown) (no (unknown) (unknown) 16:15 06/16/22 (units (unknown) date) unknown) (unknown) (no (unknown) (unknown) 16:15 (units (unkno wn) date) unknown) (unknown) (no (unknown) (unknown) 16:30 06/16/22 (units (unknown) date) unknown) (unknown) (no (unknown) (unknown) 16:31 06/16/22 (units (unknown) date) unknown) (unknown) (no (unknown) (unknown) 16:31 (units (unkno wn) date) unknown) (unknown) (no (unknown) (unknown) 16:45 06/16/22 (units (unknown) date) unknown) (unknown) (no (unknown) (unknown) 17.6, INR 1.5, (units (unknown) date) PTT 38 unknown) (unknown) (no (unknown) (unknown) 17.6, INR 1.5, (units (unknown) date) PTT 38. Sodium unknown) 135, BUN 34, glucose 146, calcium 8.1, magnesium (unknown) (no (unknown) (unknown) 17:00 06/16/22 (units (unknown) date) unknown) (unknown) (no (unknown) (unknown) 17:00 (units (unkno wn) date) unknown) (unknown) (no (unknown) (unknown) 17:15 06/16/22 (units (unknown) date) unknown) (unknown) (no (unknown) (unknown) 17:15 (units (unkno wn) date) unknown) (unknown) (no (unknown) (unknown) 17:30 06/16/22 (units (unknown) date) unknown) (unknown) (no (unknown) (unknown) 17:45 (units (unkno wn) date) unknown) (unknown) (no (unknown) (unknown) 17:46 06/16/22 (units (unknown) date) unknown) (unknown) (no (unknown) (unknown) 17:59 (units (unkno wn) date) unknown) (unknown) (no (unknown) (unknown) 18:00 06/16/22 (units (unknown) date) unknown) (unknown) (no (unknown) (unknown) 18:01 06/16/22 (units (unknown) date) unknown) (unknown) (no (unknown) (unknown) 18:15 06/16/22 (units (unknown) date) unknown) (unknown) (no (unknown) (unknown) 18:15 (units (unkno wn) date) unknown) (unknown) (no (unknown) (unknown) 18:30 06/16/22 (units (unknown) date) unknown) (unknown) (no (unknown) (unknown) 18:30 (units (unkno wn) date) unknown) (unknown) (no (unknown) (unknown) 18:45 06/16/22 (units (unknown) date) unknown) (unknown) (no (unknown) (unknown) 19:00 06/16/22 (units (unknown) date) unknown) (unknown) (no (unknown) (unknown) 19:00 (units (unkno wn) date) unknown) (unknown) (no (unknown) (unknown) 19:15 06/16/22 (units (unknown) date) unknown) (unknown) (no (unknown) (unknown) 19:15 (units (unkno wn) date) unknown) (unknown) (no (unknown) (unknown) 19:30 06/16/22 (units (unknown) date) unknown) (unknown) (no (unknown) (unknown) 19:45 06/16/22 (units (unknown) date) unknown) (unknown) (no (unknown) (unknown) 19:45 (units (unkno wn) date) unknown) (unknown) (no (unknown) (unknown) 2. Transaminitis, (units (unknown) date) with elevated unknown) alkaline phosphate, acute, present on admission (unknown) (no (unknown) (unknown) 2.6, phosphorus (units (unknown) date) 4.1, bili 2.1, AST unknown) 61, ALT 63, alk-phos 428, total protein 5.8, (unknown) (no (unknown) (unknown) 20:00 06/16/22 (units (unknown) date) unknown) (unknown) (no (unknown) (unknown) 20:00 (units (unkno wn) date) unknown) (unknown) (no (unknown) (unknown) 20:15 06/16/22 (units (unknown) date) unknown) (unknown) (no (unknown) (unknown) 20:30 06/16/22 (units (unknown) date) unknown) (unknown) (no (unknown) (unknown) 20:30 (units (unkno wn) date) unknown) (unknown) (no (unknown) (unknown) 20:45 06/16/22 (units (unknown) date) unknown) (unknown) (no (unknown) (unknown) 20:46 06/16/22 (units (unknown) date) unknown) (unknown) (no (unknown) (unknown) 20:46 (units (unkno wn) date) unknown) (unknown) (no (unknown) (unknown) 20:55 (units (unkno wn) date) unknown) (unknown) (no (unknown) (unknown) 20s. During admit (units (unknown) date) interview patient unknown) is pleasantly confused orientated to self (unknown) (no (unknown) (unknown) 4 mos (units (unkno wn) date) unknown) (unknown) (no (unknown) (unknown) 4.3, repeat 2.7, (units (unknown) date) procalcitonin unknown) 3.27, . Sodium 135, BUN 34, glucose 146, (unknown) (no (unknown) (unknown) 428, total protein (units (unknown) date) 5.8, albumin 3.1, unknown) CK 53, initial troponin negative, BNP 1430. (unknown) (no (unknown) (unknown) 98% on room air. (units (unknown) date) Patient did get up unknown) and ambulate to the restroom w/MA without (unknown) (no (unknown) (unknown) 98% on room air. (units (unknown) date) Patient has no unknown) WBC, but left shiftneut 8200, initial lactate (unknown) (no (unknown) (unknown) ALT 63 H (units (unkno wn) date) unknown) (unknown) (no (unknown) (unknown) ALT (units (unkno wn) date) unknown) (unknown) (no (unknown) (unknown) APTT 38 H (units (unkn own) date) unknown) (unknown) (no (unknown) (unknown) APTT (units (unkno wn) date) unknown) (unknown) (no (unknown) (unknown) AST 61 H (units (unkno wn) date) unknown) (unknown) (no (unknown) (unknown) AST (units (unkno wn) date) unknown) (unknown) (no (unknown) (unknown) Abdomen: Soft (units ( unknown) date) nontender, unknown) negative for organomegaly, or masses. Bowel sounds (unknown) (no (unknown) (unknown) Age/Sex: 86 / M (units (unknown) date) unknown) (unknown) (no (unknown) (unknown) Albumin 3.1 L (units ( unknown) date) unknown) (unknown) (no (unknown) (unknown) Albumin (units (unkno wn) date) unknown) (unknown) (no (unknown) (unknown) Albumin/Globulin (units (unknown) date) Ratio 1.1 unknown) (unknown) (no (unknown) (unknown) Albumin/Globulin (units (unknown) date) Ratio unknown) (unknown) (no (unknown) (unknown) Alkaline (units (unkno wn) date) Phosphatase 428 H unknown) (unknown) (no (unknown) (unknown) Alkaline (units (unkno wn) date) Phosphatase unknown) (unknown) (no (unknown) (unknown) Allergies (units (unkn own) date) unknown) (unknown) (no (unknown) (unknown) Allergy/AdvReac (units (unknown) date) Type Severity unknown) Reaction Status Date / Time (unknown) (no (unknown) (unknown) Assessment + Plan (units (unknown) date) narrative: unknown) (unknown) (no (unknown) (unknown) Assessment + Plan (units (unknown) date) unknown) (unknown) (no (unknown) (unknown) Asthma (units (unkno wn) date) unknown) (unknown) (no (unknown) (unknown) Atrial (units (unkno wn) date) fibrillation unknown) (unknown) (no (unknown) (unknown) BUN 34 H (units (unkno wn) date) unknown) (unknown) (no (unknown) (unknown) BUN (units (unkno wn) date) unknown) (unknown) (no (unknown) (unknown) BUN/Creatinine (units (unknown) date) Ratio 34.3 H unknown) (unknown) (no (unknown) (unknown) BUN/Creatinine (units (unknown) date) Ratio unknown) (unknown) (no (unknown) (unknown) Baso # (Auto) 100 (units (unknown) date) unknown) (unknown) (no (unknown) (unknown) Baso # (Auto) (units ( unknown) date) unknown) (unknown) (no (unknown) (unknown) Baso % (Auto) 0.8 (units (unknown) date) unknown) (unknown) (no (unknown) (unknown) Baso % (Auto) (units ( unknown) date) unknown) (unknown) (no (unknown) (unknown) Blood Pressure (units (unknown) date) 141/57 H unknown) (unknown) (no (unknown) (unknown) Blood Pressure (units (unknown) date) 141/73 H unknown) (unknown) (no (unknown) (unknown) Blood Pressure (units (unknown) date) 142/65 H 156/70 H unknown) (unknown) (no (unknown) (unknown) Blood Pressure (units (unknown) date) 142/67 H unknown) (unknown) (no (unknown) (unknown) Blood Pressure (units (unknown) date) 143/67 H unknown) (unknown) (no (unknown) (unknown) Blood Pressure (units (unknown) date) 145/69 H unknown) (unknown) (no (unknown) (unknown) Blood Pressure (units (unknown) date) 146/69 H unknown) (unknown) (no (unknown) (unknown) Blood Pressure (units (unknown) date) 147/71 H 150/72 H unknown) (unknown) (no (unknown) (unknown) Blood Pressure (units (unknown) date) 149/68 H 130/59 L unknown) (unknown) (no (unknown) (unknown) Blood Pressure (units (unknown) date) 149/78 H 155/70 H unknown) (unknown) (no (unknown) (unknown) Blood Pressure (units (unknown) date) 150/73 H unknown) (unknown) (no (unknown) (unknown) Blood Pressure (units (unknown) date) 151/72 H unknown) (unknown) (no (unknown) (unknown) Blood Pressure (units (unknown) date) 154/73 H unknown) (unknown) (no (unknown) (unknown) Blood Pressure (units (unknown) date) 156/72 H 151/72 H unknown) (unknown) (no (unknown) (unknown) Blood Pressure (units (unknown) date) 162/114 H unknown) (unknown) (no (unknown) (unknown) Blood Pressure (units (unknown) date) 164/94 H 164/96 H unknown) (unknown) (no (unknown) (unknown) Blood Pressure (units (unknown) date) 179/74 H 179/94 H unknown) (unknown) (no (unknown) (unknown) Blood Pressure (units (unknown) date) 186/112 H 169/75 H unknown) (unknown) (no (unknown) (unknown) Blood Pressure (units (unknown) date) unknown) (unknown) (no (unknown) (unknown) CK-MB (CK-2) Rel (units (unknown) date) Index TNP unknown) (unknown) (no (unknown) (unknown) CK-MB (CK-2) Rel (units (unknown) date) Index unknown) (unknown) (no (unknown) (unknown) CK-MB (CK-2) TNP (units (unknown) date) unknown) (unknown) (no (unknown) (unknown) CK-MB (CK-2) (units (u nknown) date) unknown) (unknown) (no (unknown) (unknown) COVID, influenza (units (unknown) date) a/B/RSV negative unknown) (unknown) (no (unknown) (unknown) Calcium 8.1 L (units ( unknown) date) unknown) (unknown) (no (unknown) (unknown) Calcium (units (unkno wn) date) unknown) (unknown) (no (unknown) (unknown) Carbon Dioxide 28 (units (unknown) date) unknown) (unknown) (no (unknown) (unknown) Carbon Dioxide (units (unknown) date) unknown) (unknown) (no (unknown) (unknown) Cardio: regular (units (unknown) date) rate and rhythm unknown) without murmur, rubs, or gallops, no carotid (unknown) (no (unknown) (unknown) Chest: Equal (units (u nknown) date) expansion, unknown) positive kyphoscoliosis, no nasal flaring, retractions, (unknown) (no (unknown) (unknown) Chief complaint: (units (unknown) date) Pain near unknown) pacemaker (unknown) (no (unknown) (unknown) Chloride 99 (units (un known) date) unknown) (unknown) (no (unknown) (unknown) Chloride (units (unkno wn) date) unknown) (unknown) (no (unknown) (unknown) Chronic (units (unkno wn) date) anticoagulation unknown) (unknown) (no (unknown) (unknown) Creatinine 0.99 (units (unknown) date) unknown) (unknown) (no (unknown) (unknown) Creatinine (units (unk nown) date) unknown) (unknown) (no (unknown) (unknown) Critical Care (units ( unknown) date) time: unknown) (unknown) (no (unknown) (unknown) : 1935 (units (unknown) date) Acct:[id number] unknown) (unknown) (no (unknown) (unknown) Date Patient (units (u nknown) date) Seen: 06/16/22 unknown) (unknown) (no (unknown) (unknown) Date of Service: (units (unknown) date) 06/16/22 unknown) (unknown) (no (unknown) (unknown) Yoseph Cardoso is (units (unknown) date) a 86-year-old male unknown) with a history of atrial fibrillation, with (unknown) (no (unknown) (unknown) Due to patient's (units (unknown) date) cognitive unknown) impairment/encepha lopathy unable to obtain HPI, ROS, (unknown) (no (unknown) (unknown) EKG atrial sensed (units (unknown) date) ventricular paced unknown) rhythm rate 72, abnormal. . Head CT (unknown) (no (unknown) (unknown) Environment (units (un known) date) unknown) (unknown) (no (unknown) (unknown) Eos # (Auto) 0 (units (unknown) date) unknown) (unknown) (no (unknown) (unknown) Eos # (Auto) (units (u nknown) date) unknown) (unknown) (no (unknown) (unknown) Eos % (Auto) 0.1 (units (unknown) date) L unknown) (unknown) (no (unknown) (unknown) Eos % (Auto) (units (u nknown) date) unknown) (unknown) (no (unknown) (unknown) Essential (units (unkn own) date) hypertension unknown) (unknown) (no (unknown) (unknown) Estimated GFR > (units (unknown) date) 60 unknown) (unknown) (no (unknown) (unknown) Estimated GFR (units ( unknown) date) unknown) (unknown) (no (unknown) (unknown) Exam Narrative: (units (unknown) date) unknown) (unknown) (no (unknown) (unknown) Exam (units (unkno wn) date) unknown) (unknown) (no (unknown) (unknown) Family + Social (units (unknown) date) History unknown) (unknown) (no (unknown) (unknown) Family History (units (unknown) date) (Reviewed 06/17/22 unknown) @ 00:47 by Hawa Michael PROO[employer]HEET CORRECTORJames) (unknown) (no (unknown) (unknown) Father (units (unknown) date) Diabetes mellitus unknown) (unknown) (no (unknown) (unknown) Feels Safe in (units ( unknown) date) Current Yes, unknown) patient lives at home with his . (unknown) (no (unknown) (unknown) Full range of (units ( unknown) date) motion intact unknown) radial and pedal pulses are normal. (unknown) (no (unknown) (unknown) General: Patient (units (unknown) date) is a pleasantly unknown) confused cachectic, frail, elderly male, in no (unknown) (no (unknown) (unknown) Globulin 2.7 (units (u nknown) date) unknown) (unknown) (no (unknown) (unknown) Globulin (units (unkno wn) date) unknown) (unknown) (no (unknown) (unknown) Glucose 146 H (units ( unknown) date) unknown) (unknown) (no (unknown) (unknown) Glucose (units (unkno wn) date) unknown) (unknown) (no (unknown) (unknown) HEENT: (units (unkno wn) date) Normocephalic, unknown) atraumatic, extraocular muscles intact, oral pharynx is (unknown) (no (unknown) (unknown) Hct 46.6 (units (unkno wn) date) unknown) (unknown) (no (unknown) (unknown) Hct (units (unkno wn) date) unknown) (unknown) (no (unknown) (unknown) Head CT negative. 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 (unknown) (no (unknown) (unknown) History (units (unkno wn) date) unknown) (unknown) (no (unknown) (unknown) Home Medications (units (unknown) date) and Allergies unknown) (unknown) (no (unknown) (unknown) Home Medications (units (unknown) date) unknown) (unknown) (no (unknown) (unknown) I spent a total (units (unknown) date) of [] minutes of unknown) critical care time on this patient's care (unknown) (no (unknown) (unknown) INR 1.5 H (units (unkn own) date) unknown) (unknown) (no (unknown) (unknown) INR (units (unkno wn) date) unknown) (unknown) (no (unknown) (unknown) Influenza A (units (un known) date) (RT-PCR) Flu a unknown) negative (unknown) (no (unknown) (unknown) Influenza A (units (un known) date) (RT-PCR) unknown) (unknown) (no (unknown) (unknown) Influenza B (units (un known) date) (RT-PCR) Flu b unknown) negative (unknown) (no (unknown) (unknown) Influenza B (units (un known) date) (RT-PCR) unknown) (unknown) (no (unknown) (unknown) [facility] (units (unknown) date) [address] unknown) [place] [address] (unknown) (no (unknown) (unknown) Laboratory (units (unk nown) date) Results - last unknown) hr (unknown) (no (unknown) (unknown) Labs (units (unkno wn) date) unknown) (unknown) (no (unknown) (unknown) Labs: (units (unkno wn) date) unknown) (unknown) (no (unknown) (unknown) Lactate 2.7 H (units ( unknown) date) unknown) (unknown) (no (unknown) (unknown) Lactate 4.3 H* (units (unknown) date) unknown) (unknown) (no (unknown) (unknown) Lactate (units (unkno wn) date) unknown) (unknown) (no (unknown) (unknown) Lipase 45 (units (unkn own) date) unknown) (unknown) (no (unknown) (unknown) Lipase (units (unkno wn) date) unknown) (unknown) (no (unknown) (unknown) Lungs: (units (unkno wn) date) Auscultation of unknown) all lung troy are clear without adventitious sounds, (unknown) (no (unknown) (unknown) Lymph # (Auto) (units (unknown) date) 400 L unknown) (unknown) (no (unknown) (unknown) Lymph # (Auto) (units (unknown) date) unknown) (unknown) (no (unknown) (unknown) Lymph % (Auto) (units (unknown) date) 4.6 L unknown) (unknown) (no (unknown) (unknown) Lymph % (Auto) (units (unknown) date) unknown) (unknown) (no (unknown) (unknown) MCH 30.4 (units (unkno wn) date) unknown) (unknown) (no (unknown) (unknown) MCH (units (unkno wn) date) unknown) (unknown) (no (unknown) (unknown) MCHC 33.0 (units (unkn own) date) unknown) (unknown) (no (unknown) (unknown) MCHC (units (unkno wn) date) unknown) (unknown) (no (unknown) (unknown) MCV 92.4 (units (unkno wn) date) unknown) (unknown) (no (unknown) (unknown) MCV (units (unkno wn) date) unknown) (unknown) (no (unknown) (unknown) Magnesium 2.6 H (units (unknown) date) unknown) (unknown) (no (unknown) (unknown) Magnesium (units (unkn own) date) unknown) (unknown) (no (unknown) (unknown) Medical History (units (unknown) date) (Updated 06/17/22 unknown) @ 00:55 by Hawa Michael [facility]) (unknown) (no (unknown) (unknown) Medication (units (unk nown) date) Instructions unknown) Recorded Confirmed Type (unknown) (no (unknown) (unknown) Meds (units (unkno wn) date) unknown) (unknown) (no (unknown) (unknown) [place] # (Auto) 900 (units (unknown) date) unknown) (unknown) (no (unknown) (unknown) [place] # (Auto) (units ( unknown) date) unknown) (unknown) (no (unknown) (unknown) [place] % (Auto) 9.4 (units (unknown) date) unknown) (unknown) (no (unknown) (unknown) [place] % (Auto) (units ( unknown) date) unknown) (unknown) (no (unknown) (unknown) Mother (units (unknown) date) No problems noted. unknown) (unknown) (no (unknown) (unknown) Musculoskeletal: (units (unknown) date) Diffuse but equal unknown) throughout all extremity muscle wasting, no (unknown) (no (unknown) (unknown) NT-Pro-B (units (unkno wn) date) Natriuret Pep 1430 unknown) H (unknown) (no (unknown) (unknown) NT-Pro-B (units (unkno wn) date) Natriuret Pep unknown) (unknown) (no (unknown) (unknown) Narrative (units (unkn own) date) unknown) (unknown) (no (unknown) (unknown) Narrative: (units (unk nown) date) unknown) (unknown) (no (unknown) (unknown) Negative for JVD (units (unknown) date) unknown) (unknown) (no (unknown) (unknown) Neuro: Alert and (units (unknown) date) orientated x2 unknown) Person + Place , moves all extremities, (unknown) (no (unknown) (unknown) Neut # (Auto) (units ( unknown) date) 8200 H unknown) (unknown) (no (unknown) (unknown) Neut # (Auto) (units ( unknown) date) unknown) (unknown) (no (unknown) (unknown) Neut % (Auto) (units ( unknown) date) 85.1 H unknown) (unknown) (no (unknown) (unknown) Neut % (Auto) (units ( unknown) date) unknown) (unknown) (no (unknown) (unknown) Objective (units (unkn own) date) unknown) (unknown) (no (unknown) (unknown) Oxygen Delivery (units (unknown) date) Method Room Air unknown) (unknown) (no (unknown) (unknown) Oxygen Delivery (units (unknown) date) Method unknown) (unknown) (no (unknown) (unknown) PT 17.6 H (units (unkn own) date) unknown) (unknown) (no (unknown) (unknown) PT (units (unkno wn) date) unknown) (unknown) (no (unknown) (unknown) Pacemaker (units (unkn own) date) unknown) (unknown) (no (unknown) (unknown) Patient History (units (unknown) date) unknown) (unknown) (no (unknown) (unknown) Patient: (units (unkno wn) date) Yoseph Cardoso unknown) MR#: [id number] (unknown) (no (unknown) (unknown) Phosphorus 4.1 H (units (unknown) date) unknown) (unknown) (no (unknown) (unknown) Phosphorus (units (unk nown) date) unknown) (unknown) (no (unknown) (unknown) Plt Count 222 (units ( unknown) date) unknown) (unknown) (no (unknown) (unknown) Plt Count (units (unkn own) date) unknown) (unknown) (no (unknown) (unknown) Potassium 4.8 (units ( unknown) date) unknown) (unknown) (no (unknown) (unknown) Potassium (units (unkn own) date) unknown) (unknown) (no (unknown) (unknown) Procalcitonin (units ( unknown) date) 3.27 H unknown) (unknown) (no (unknown) (unknown) Procalcitonin (units ( unknown) date) unknown) (unknown) (no (unknown) (unknown) Provider: (units (unkn own) date) Hawa Michael unknown) 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 (unknown) (no (unknown) (unknown) Psych: Patient (units (unknown) date) has a well-kept unknown) appearance, pleasant affect, mental status (unknown) (no (unknown) (unknown) Pulse Oximetry 93 (units (unknown) date) 100 unknown) (unknown) (no (unknown) (unknown) Pulse Oximetry 94 (units (unknown) date) 96 unknown) (unknown) (no (unknown) (unknown) Pulse Oximetry 95 (units (unknown) date) unknown) (unknown) (no (unknown) (unknown) Pulse Oximetry 96 (units (unknown) date) 91 unknown) (unknown) (no (unknown) (unknown) Pulse Oximetry 96 (units (unknown) date) 99 unknown) (unknown) (no (unknown) (unknown) Pulse Oximetry 96 (units (unknown) date) unknown) (unknown) (no (unknown) (unknown) Pulse Oximetry 97 (units (unknown) date) 96 97 unknown) (unknown) (no (unknown) (unknown) Pulse Oximetry 97 (units (unknown) date) 97 98 unknown) (unknown) (no (unknown) (unknown) Pulse Oximetry 97 (units (unknown) date) 97 unknown) (unknown) (no (unknown) (unknown) Pulse Oximetry 97 (units (unknown) date) unknown) (unknown) (no (unknown) (unknown) Pulse Oximetry 98 (units (unknown) date) 97 unknown) (unknown) (no (unknown) (unknown) Pulse Oximetry 98 (units (unknown) date) unknown) (unknown) (no (unknown) (unknown) Pulse Oximetry (units (unknown) date) unknown) (unknown) (no (unknown) (unknown) Pulse Rate 111 H (units (unknown) date) unknown) (unknown) (no (unknown) (unknown) Pulse Rate 114 H (units (unknown) date) 118 H unknown) (unknown) (no (unknown) (unknown) Pulse Rate 154 H (units (unknown) date) unknown) (unknown) (no (unknown) (unknown) Pulse Rate 72 66 (units (unknown) date) unknown) (unknown) (no (unknown) (unknown) Pulse Rate 72 71 (units (unknown) date) unknown) (unknown) (no (unknown) (unknown) Pulse Rate 72 74 (units (unknown) date) unknown) (unknown) (no (unknown) (unknown) Pulse Rate 72 (units ( unknown) date) unknown) (unknown) (no (unknown) (unknown) Pulse Rate 73 74 (units (unknown) date) unknown) (unknown) (no (unknown) (unknown) Pulse Rate 73 87 (units (unknown) date) 98 H unknown) (unknown) (no (unknown) (unknown) Pulse Rate 73 (units ( unknown) date) unknown) (unknown) (no (unknown) (unknown) Pulse Rate 74 104 (units (unknown) date) H 106 H unknown) (unknown) (no (unknown) (unknown) Pulse Rate 75 116 (units (unknown) date) H unknown) (unknown) (no (unknown) (unknown) Pulse Rate 75 70 (units (unknown) date) unknown) (unknown) (no (unknown) (unknown) Pulse Rate 75 74 (units (unknown) date) 74 unknown) (unknown) (no (unknown) (unknown) Pulse Rate 75 (units ( unknown) date) unknown) (unknown) (no (unknown) (unknown) Pulse Rate 76 (units ( unknown) date) unknown) (unknown) (no (unknown) (unknown) Pulse Rate 78 75 (units (unknown) date) unknown) (unknown) (no (unknown) (unknown) Pulse Rate 84 77 (units (unknown) date) unknown) (unknown) (no (unknown) (unknown) Pulse Rate 86 72 (units (unknown) date) unknown) (unknown) (no (unknown) (unknown) Pulse Rate 98 H (units (unknown) date) unknown) (unknown) (no (unknown) (unknown) RBC 5.05 (units (unkno wn) date) unknown) (unknown) (no (unknown) (unknown) RBC (units (unkno wn) date) unknown) (unknown) (no (unknown) (unknown) RDW 14.4 (units (unkno wn) date) unknown) (unknown) (no (unknown) (unknown) RDW (units (unkno wn) date) unknown) (unknown) (no (unknown) (unknown) RSV (PCR) (units (unkn own) date) Negative unknown) (unknown) (no (unknown) (unknown) RSV (PCR) (units (unkn own) date) unknown) (unknown) (no (unknown) (unknown) Respiratory Rate (units (unknown) date) 12 25 H unknown) (unknown) (no (unknown) (unknown) Respiratory Rate (units (unknown) date) 13 26 H unknown) (unknown) (no (unknown) (unknown) Respiratory Rate (units (unknown) date) 16 20 unknown) (unknown) (no (unknown) (unknown) Respiratory Rate (units (unknown) date) 17 26 H unknown) (unknown) (no (unknown) (unknown) Respiratory Rate (units (unknown) date) 17 unknown) (unknown) (no (unknown) (unknown) Respiratory Rate (units (unknown) date) 18 32 H unknown) (unknown) (no (unknown) (unknown) Respiratory Rate (units (unknown) date) 18 unknown) (unknown) (no (unknown) (unknown) Respiratory Rate (units (unknown) date) 19 18 unknown) (unknown) (no (unknown) (unknown) Respiratory Rate (units (unknown) date) 19 34 H 39 H unknown) (unknown) (no (unknown) (unknown) Respiratory Rate (units (unknown) date) 19 unknown) (unknown) (no (unknown) (unknown) Respiratory Rate (units (unknown) date) 20 unknown) (unknown) (no (unknown) (unknown) Respiratory Rate (units (unknown) date) 22 20 unknown) (unknown) (no (unknown) (unknown) Respiratory Rate (units (unknown) date) 23 17 16 unknown) (unknown) (no (unknown) (unknown) Respiratory Rate (units (unknown) date) 23 18 unknown) (unknown) (no (unknown) (unknown) Respiratory Rate (units (unknown) date) 24 19 unknown) (unknown) (no (unknown) (unknown) Respiratory Rate (units (unknown) date) 24 23 unknown) (unknown) (no (unknown) (unknown) Respiratory Rate (units (unknown) date) 27 H unknown) (unknown) (no (unknown) (unknown) Respiratory Rate (units (unknown) date) 29 H unknown) (unknown) (no (unknown) (unknown) Respiratory Rate (units (unknown) date) 30 H 24 unknown) (unknown) (no (unknown) (unknown) Respiratory Rate (units (unknown) date) unknown) (unknown) (no (unknown) (unknown) Review of Systems (units (unknown) date) unknown) (unknown) (no (unknown) (unknown) SARS-CoV-2 (PCR) (units (unknown) date) Negative unknown) (unknown) (no (unknown) (unknown) SARS-CoV-2 (PCR) (units (unknown) date) unknown) (unknown) (no (unknown) (unknown) Safety + (units (unkno wn) date) Behavioral: unknown) (unknown) (no (unknown) (unknown) Signed By: (units (unk nown) date) unknown) (unknown) (no (unknown) (unknown) Skin: Warm Very (units (unknown) date) dry, poor turgor, unknown) appears significantly dehydrated and wasting (unknown) (no (unknown) (unknown) Smoking Status (units (unknown) date) never unknown) (unknown) (no (unknown) (unknown) Sodium 135 L (units (u nknown) date) unknown) (unknown) (no (unknown) (unknown) Sodium (units (unkno wn) date) unknown) (unknown) (no (unknown) (unknown) Substance Use (units ( unknown) date) Type does not use unknown) (unknown) (no (unknown) (unknown) Surgical History (units (unknown) date) (Updated 06/16/22 unknown) @ 21:27 by JOSE Crystal) (unknown) (no (unknown) (unknown) Temperature 98.1 (units (unknown) date) F unknown) (unknown) (no (unknown) (unknown) Temperature (units (un known) date) unknown) (unknown) (no (unknown) (unknown) Time Patient (units (u nknown) date) Seen: 15:35 unknown) (unknown) (no (unknown) (unknown) Time Spent With (units (unknown) date) Patient unknown) (unknown) (no (unknown) (unknown) Tobacco + (units (unkn own) date) Substance use: unknown) (unknown) (no (unknown) (unknown) Total Bilirubin (units (unknown) date) 2.1 H unknown) (unknown) (no (unknown) (unknown) Total Bilirubin (units (unknown) date) unknown) (unknown) (no (unknown) (unknown) Total Creatine (units (unknown) date) Kinase 53 L unknown) (unknown) (no (unknown) (unknown) Total Creatine (units (unknown) date) Kinase unknown) (unknown) (no (unknown) (unknown) Total Protein 5.8 (units (unknown) date) L unknown) (unknown) (no (unknown) (unknown) Total Protein (units ( unknown) date) unknown) (unknown) (no (unknown) (unknown) Troponin I < (units (u nknown) date) 0.012 unknown) (unknown) (no (unknown) (unknown) Troponin I (units (unk nown) date) unknown) (unknown) (no (unknown) (unknown) Upon admit BP (units (u nknown) date) 149/78, unknown) tachycardic heart rate 154, tachypneic R 29, O2 saturation (unknown) (no (unknown) (unknown) Ur Bilirubin (units (u nknown) date) Confirm Positive H unknown) (unknown) (no (unknown) (unknown) Ur Bilirubin (units (u nknown) date) Confirm unknown) (unknown) (no (unknown) (unknown) Ur Culture (units (unk nown) date) Indicated? unknown) Specimen cultured (unknown) (no (unknown) (unknown) Ur Culture (units (unk nown) date) Indicated? unknown) (unknown) (no (unknown) (unknown) Ur Leukocyte (units (u nknown) date) Esterase Trace H unknown) (unknown) (no (unknown) (unknown) Ur Leukocyte (units (u nknown) date) Esterase unknown) (unknown) (no (unknown) (unknown) Ur Specific (units (un known) date) [place] 1.020 unknown) (unknown) (no (unknown) (unknown) Ur Specific (units (un known) date) [place] unknown) (unknown) (no (unknown) (unknown) Ur Squamous Epith (units (unknown) date) Cells 1-5 /hpf unknown) (unknown) (no (unknown) (unknown) Ur Squamous Epith (units (unknown) date) Cells unknown) (unknown) (no (unknown) (unknown) Urine Appearance (units (unknown) date) Cloudy unknown) (unknown) (no (unknown) (unknown) Urine Appearance (units (unknown) date) unknown) (unknown) (no (unknown) (unknown) Urine Bacteria (units (unknown) date) None seen unknown) (unknown) (no (unknown) (unknown) Urine Bacteria (units (unknown) date) unknown) (unknown) (no (unknown) (unknown) Urine Bilirubin (units (unknown) date) 3+ H unknown) (unknown) (no (unknown) (unknown) Urine Bilirubin (units (unknown) date) unknown) (unknown) (no (unknown) (unknown) Urine Color Brown (units (unknown) date) unknown) (unknown) (no (unknown) (unknown) Urine Color (units (un known) date) unknown) (unknown) (no (unknown) (unknown) Urine Glucose (units ( unknown) date) (UA) Negative unknown) (unknown) (no (unknown) (unknown) Urine Glucose (units ( unknown) date) (UA) unknown) (unknown) (no (unknown) (unknown) Urine Ketones 1+ (units (unknown) date) H unknown) (unknown) (no (unknown) (unknown) Urine Ketones (units ( unknown) date) unknown) (unknown) (no (unknown) (unknown) Urine Nitrate (units ( unknown) date) Positive H unknown) (unknown) (no (unknown) (unknown) Urine Nitrate (units ( unknown) date) unknown) (unknown) (no (unknown) (unknown) Urine Occult (units (u nknown) date) Blood Trace-intact unknown) (unknown) (no (unknown) (unknown) Urine Occult (units (u nknown) date) Blood unknown) (unknown) (no (unknown) (unknown) Urine Protein 1+ (units (unknown) date) H unknown) (unknown) (no (unknown) (unknown) Urine Protein (units ( unknown) date) unknown) (unknown) (no (unknown) (unknown) Urine RBC (units (unkn own) date) 10-30/hpf H unknown) (unknown) (no (unknown) (unknown) Urine RBC (units (unkn own) date) unknown) (unknown) (no (unknown) (unknown) Urine (units (unkno wn) date) Urobilinogen 1.0 unknown) (unknown) (no (unknown) (unknown) Urine (units (unkno wn) date) Urobilinogen unknown) (unknown) (no (unknown) (unknown) Urine WBC 1-5/hpf (units (unknown) date) unknown) (unknown) (no (unknown) (unknown) Urine WBC (units (unkn own) date) unknown) (unknown) (no (unknown) (unknown) Urine pH 6.5 (units (u nknown) date) unknown) (unknown) (no (unknown) (unknown) Urine pH (units (unkno wn) date) unknown) (unknown) (no (unknown) (unknown) Vital Signs (units (un known) date) unknown) (unknown) (no (unknown) (unknown) WBC 9.6 (units (unkno wn) date) unknown) (unknown) (no (unknown) (unknown) WBC (units (unkno wn) date) unknown) (unknown) (no (unknown) (unknown) [Embedded Image (units (unknown) date) Not Available] unknown) (unknown) (no (unknown) (unknown) [From Prevnar] (units (unknown) date) and feet x unknown) (unknown) (no (unknown) (unknown) a recent 30 lb (units (unknown) date) weight loss, and unknown) night sweats with a shuffling gait x6 weeks. He (unknown) (no (unknown) (unknown) after. (units (unkno wn) date) unknown) (unknown) (no (unknown) (unknown) albumin 3.1, CK (units (unknown) date) 53, initial unknown) troponin negative, BNP 1430. EKG atrial sensed (unknown) (no (unknown) (unknown) alcohol intake (units (unknown) date) frequency a few unknown) times a month (unknown) (no (unknown) (unknown) amlodipine 5 mg (units (unknown) date) tablet 5 mg PO unknown) DAILY 06/16/22 06/16/22 History (unknown) (no (unknown) (unknown) and intact (units (unk nown) date) without rashes, unknown) ulcerations or petechiae. (unknown) (no (unknown) (unknown) and place, but a (units (unknown) date) very poor unknown) historian, stated that 'he came in today by himself (unknown) (no (unknown) (unknown) apixaban 5 mg (units ( unknown) date) tablet (Eliquis) 5 unknown) mg PO BID blood thinner 06/16/22 06/16/22 (unknown) (no (unknown) (unknown) appears is no (units ( unknown) date) distress at this unknown) time, no apparent jaundice, right upper quadrant (unknown) (no (unknown) (unknown) are present in (units (unknown) date) all 4 quadrants unknown) without guarding or rebound, no CVA tenderness. (unknown) (no (unknown) (unknown) attitude thought (units (unknown) date) context and unknown) judgment are inappropriate- confused, poor (unknown) (no (unknown) (unknown) because he had (units (unknown) date) black urine this unknown) morning'. He did not recall seeing Dr. Gillette, (unknown) (no (unknown) (unknown) bruit, no cardiac (units (unknown) date) pulsations unknown) present. (unknown) (no (unknown) (unknown) calcium 8.1, (units (u nknown) date) magnesium 2.6, unknown) phosphorus 4.1, bili 2.1, AST 61, ALT 63, alk-phos (unknown) (no (unknown) (unknown) cardiology's (units (u nknown) date) office due to unknown) deteriorating health concerns. patient admitted for (unknown) (no (unknown) (unknown) cardiology's (units (u nknown) date) office due to his unknown) significant presentation of cachexia, weakness, (unknown) (no (unknown) (unknown) clear and mucous (units (unknown) date) membranes are dry. unknown) Neck is supple and symmetric, trachea is (unknown) (no (unknown) (unknown) conjugate to of (units (unknown) date) hands unknown) (unknown) (no (unknown) (unknown) demonstrated (units (u nknown) date) bibasilar unknown) infiltrates versus inflammatory pulmonary opacities mild (unknown) (no (unknown) (unknown) differential also (units (unknown) date) includes unknown) neoplastic processes as well as infectious (unknown) (no (unknown) (unknown) difficulty, (units (un known) date) struggles slightly unknown) with given directions. Patient has no WBC, but (unknown) (no (unknown) (unknown) distress at this (units (unknown) date) time. unknown) (unknown) (no (unknown) (unknown) etiologies such (units (unknown) date) as micro abscesses unknown) (unknown) (no (unknown) (unknown) fluticasone (units (un known) date) propionate 44 44 unknown) mcg inhalation DAILY 06/16/22 06/16/22 History (unknown) (no (unknown) (unknown) for mild sepsis, (units (unknown) date) transaminitis, unknown) UTI, encephalopathy. (unknown) (no (unknown) (unknown) gabapentin 300 mg (units (unknown) date) capsule 300 mg PO unknown) BID 06/16/22 06/16/22 History (unknown) (no (unknown) (unknown) historian. (units (unk nown) date) unknown) (unknown) (no (unknown) (unknown) left shiftneut (units (unknown) date) 8200, initial unknown) lactate 4.3, repeat 2.7, procalcitonin 3.27, PT (unknown) (no (unknown) (unknown) liver, as well as (units (unknown) date) multifocal unknown) hepatocellular carcinoma or infection. Numerous (unknown) (no (unknown) (unknown) malaise, balance (units (unknown) date) coordination unknown) issues, and concerns for neoplastic syndrome with (unknown) (no (unknown) (unknown) mcg/actuation HFA (units (unknown) date) aerosol inhaler unknown) (unknown) (no (unknown) (unknown) medication (units (unk nown) date) reconciliation unknown) accurately. (unknown) (no (unknown) (unknown) midline, no (units (un known) date) adenopathy, no unknown) thyroid enlargement, nontender, no masses palpated. (unknown) (no (unknown) (unknown) mild sepsis, (units (u nknown) date) transaminitis, unknown) UTI, encephalopathy. (unknown) (no (unknown) (unknown) negative. 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 Patient denies any pain, and (unknown) (no (unknown) (unknown) obvious (units (unkno wn) date) deformity, unknown) crepitus, effusions, cyanosis, clubbing or edema present. (unknown) (no (unknown) (unknown) on room air. (units (u nknown) date) unknown) (unknown) (no (unknown) (unknown) opacities mild to (units (unknown) date) moderate right unknown) greater than left pulmonary effusion. (unknown) (no (unknown) (unknown) or labored (units (unk nown) date) breathing, mildly unknown) tachypneic. 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 Gillette (unknown) (no (unknown) (unknown) pain, or fever. (units (unknown) date) unknown) (unknown) (no (unknown) (unknown) pneumococcal (units (u nknown) date) 7-valent AdvReac unknown) Intermediate swelling Verified 06/16/22 12:46 (unknown) (no (unknown) (unknown) present on (units (unk nown) date) admission unknown) (unknown) (no (unknown) (unknown) sensation to (units (u nknown) date) touch intact, no unknown) gross deficits noted of cranial nerves. (unknown) (no (unknown) (unknown) shuffling gait x6 (units (unknown) date) weeks. unknown) (unknown) (no (unknown) (unknown) small (units (unkno wn) date) hypoattenuating unknown) lesions throughout the spleen are also nonspecific and the (unknown) (no (unknown) (unknown) tachycardia with (units (unknown) date) heart rates unknown) 111-154, and tachypneic respiratory rate in the (unknown) (no (unknown) (unknown) to moderate right (units (unknown) date) greater than left unknown) pulmonary effusion. SOFA:2 patient admitted (unknown) (no (unknown) (unknown) to moderate right (units (unknown) date) greater than left unknown) pulmonary effusion. patient admitted for (unknown) (no (unknown) (unknown) today; this time (units (unknown) date) is exclusive of unknown) procedural time. (unknown) (no (unknown) (unknown) unsure if this is (units (unknown) date) the patient's unknown) baseline. Due to cognitive impairment unable to (unknown) (no (unknown) (unknown) ventricular paced (units (unknown) date) rhythm rate 72, unknown) abnormal. COVID, influenza a/B/RSV negative. (unknown) (no (unknown) (unknown) was brought into (units (unknown) date) the ED by his unknown) . In ED patient demonstrated escalating (unknown) (no (unknown) (unknown) wheezes, rhonchi, (units (unknown) date) or rales. unknown) Result panel 219 (unknown) (no (unknown) (unknown) (no value) (units (unk nown) date) unknown) (unknown) (no (unknown) (unknown) (Flovent HFA) (units ( unknown) date) unknown) (unknown) (no (unknown) (unknown) (past 8 hours): (units (unknown) date) unknown) (unknown) (no (unknown) (unknown) - CXR ?Possible (units (unknown) date) mild right and unknown) retrocardiac opacities (unknown) (no (unknown) (unknown) -ABD/Pelvis (units (unk nown) date) CT:?Multiple unknown) ill-defined hypoattenuating mass lesions throughout the (unknown) (no (unknown) (unknown) -BLD/Urine (units (unk nown) date) culture pending unknown) (unknown) (no (unknown) (unknown) -Chest CT (units (unkn own) date) demonstrated unknown) bibasilar infiltrates versus inflammatory pulmonary (unknown) (no (unknown) (unknown) -ED:heart rates (units (unknown) date) 111-154, and unknown) tachypneic respiratory rate in the 20s. (1L bolus) (unknown) (no (unknown) (unknown) -GGT 516 -Ordered (units (unknown) date) RT upper Quad U/S unknown) tomorrow -may require (unknown) (no (unknown) (unknown) -Negative Fever, (units (unknown) date) jaundice, right unknown) upper quadrant pain (unknown) (no (unknown) (unknown) -Ordered: CRP, (units (unknown) date) ESR, AFP, EPO, unknown) hepatitis panel (unknown) (no (unknown) (unknown) -R Factor: 0.4 (units (unknown) date) cholestatic unknown) injury- Ordered ABD/P CT (unknown) (no (unknown) (unknown) -SOFA:2 (units (unkno wn) date) unknown) (unknown) (no (unknown) (unknown) -WBC neg, neut# (units (unknown) date) 8200, initial unknown) lactate 4.3, repeat 2.7, procalcitonin 3.27, (unknown) (no (unknown) (unknown) -admit BP 149/78, (units (unknown) date) tachycardic heart unknown) rate 154, tachypneic R 29, O2 saturation 98% (unknown) (no (unknown) (unknown) -cachexia, (units (unk nown) date) weakness, malaise unknown) balance coordination issues, and concerns for (unknown) (no (unknown) (unknown) -monitor for (units (u nknown) date) septic shock unknown) (unknown) (no (unknown) (unknown) -ordered 1L bolus (units (unknown) date) followed by NS unknown) @100 cc/HR (unknown) (no (unknown) (unknown) -phosphorus 4.1, (units (unknown) date) bili 2.1, AST 61, unknown) ALT 63, alk-phos 428, total protein 5.8,PT (unknown) (no (unknown) (unknown) -placed general (units (unknown) date) surgery consult unknown) Dr. Turner (unknown) (no (unknown) (unknown) -positive nitrate (units (unknown) date) urinalysis culture unknown) pending, transaminitis (unknown) (no (unknown) (unknown) [id number] (units (unkno wn) date) unknown) (unknown) (no (unknown) (unknown) 06/16/22 06/16/22 (units (unknown) date) 06/16/22 unknown) (unknown) (no (unknown) (unknown) 06/16/22 06/16/22 (units (unknown) date) unknown) (unknown) (no (unknown) (unknown) 06/16/22 12:35 (units (unknown) date) unknown) (unknown) (no (unknown) (unknown) 06/16/22 (units (unkno wn) date) unknown) (unknown) (no (unknown) (unknown) 1. Sepsis without (units (unknown) date) septic shock, unknown) likely hepatobiliary origin, and UTI, acute, (unknown) (no (unknown) (unknown) 12:35 12:35 12:35 (units (unknown) date) unknown) (unknown) (no (unknown) (unknown) 13:15 06/16/22 (units (unknown) date) unknown) (unknown) (no (unknown) (unknown) 13:30 (units (unkno wn) date) unknown) (unknown) (no (unknown) (unknown) 13:45 06/16/22 (units (unknown) date) unknown) (unknown) (no (unknown) (unknown) 13:46 06/16/22 (units (unknown) date) unknown) (unknown) (no (unknown) (unknown) 13:46 (units (unkno wn) date) unknown) (unknown) (no (unknown) (unknown) 14:00 06/16/22 (units (unknown) date) unknown) (unknown) (no (unknown) (unknown) 14:24 (units (unkno wn) date) unknown) (unknown) (no (unknown) (unknown) 14:30 06/16/22 (units (unknown) date) unknown) (unknown) (no (unknown) (unknown) 14:45 06/16/22 (units (unknown) date) unknown) (unknown) (no (unknown) (unknown) 15:00 (units (unkno wn) date) unknown) (unknown) (no (unknown) (unknown) 15:15 06/16/22 (units (unknown) date) unknown) (unknown) (no (unknown) (unknown) 15:30 06/16/22 (units (unknown) date) unknown) (unknown) (no (unknown) (unknown) 15:30 17:55 (units (un known) date) unknown) (unknown) (no (unknown) (unknown) 15:34 06/16/22 (units (unknown) date) unknown) (unknown) (no (unknown) (unknown) 15:34 (units (unkno wn) date) unknown) (unknown) (no (unknown) (unknown) 15:45 06/16/22 (units (unknown) date) unknown) (unknown) (no (unknown) (unknown) 15:45 (units (unkno wn) date) unknown) (unknown) (no (unknown) (unknown) 16:00 06/16/22 (units (unknown) date) unknown) (unknown) (no (unknown) (unknown) 16:15 06/16/22 (units (unknown) date) unknown) (unknown) (no (unknown) (unknown) 16:15 (units (unkno wn) date) unknown) (unknown) (no (unknown) (unknown) 16:30 06/16/22 (units (unknown) date) unknown) (unknown) (no (unknown) (unknown) 16:31 06/16/22 (units (unknown) date) unknown) (unknown) (no (unknown) (unknown) 16:31 (units (unkno wn) date) unknown) (unknown) (no (unknown) (unknown) 16:45 06/16/22 (units (unknown) date) unknown) (unknown) (no (unknown) (unknown) 17.6, INR 1.5, (units (unknown) date) PTT 38 unknown) (unknown) (no (unknown) (unknown) 17.6, INR 1.5, (units (unknown) date) PTT 38. Sodium unknown) 135, BUN 34, glucose 146, calcium 8.1, magnesium (unknown) (no (unknown) (unknown) 17:00 06/16/22 (units (unknown) date) unknown) (unknown) (no (unknown) (unknown) 17:00 (units (unkno wn) date) unknown) (unknown) (no (unknown) (unknown) 17:15 06/16/22 (units (unknown) date) unknown) (unknown) (no (unknown) (unknown) 17:15 (units (unkno wn) date) unknown) (unknown) (no (unknown) (unknown) 17:30 06/16/22 (units (unknown) date) unknown) (unknown) (no (unknown) (unknown) 17:45 (units (unkno wn) date) unknown) (unknown) (no (unknown) (unknown) 17:46 06/16/22 (units (unknown) date) unknown) (unknown) (no (unknown) (unknown) 17:59 (units (unkno wn) date) unknown) (unknown) (no (unknown) (unknown) 18:00 06/16/22 (units (unknown) date) unknown) (unknown) (no (unknown) (unknown) 18:01 06/16/22 (units (unknown) date) unknown) (unknown) (no (unknown) (unknown) 18:15 06/16/22 (units (unknown) date) unknown) (unknown) (no (unknown) (unknown) 18:15 (units (unkno wn) date) unknown) (unknown) (no (unknown) (unknown) 18:30 06/16/22 (units (unknown) date) unknown) (unknown) (no (unknown) (unknown) 18:30 (units (unkno wn) date) unknown) (unknown) (no (unknown) (unknown) 18:45 06/16/22 (units (unknown) date) unknown) (unknown) (no (unknown) (unknown) 19:00 06/16/22 (units (unknown) date) unknown) (unknown) (no (unknown) (unknown) 19:00 (units (unkno wn) date) unknown) (unknown) (no (unknown) (unknown) 19:15 06/16/22 (units (unknown) date) unknown) (unknown) (no (unknown) (unknown) 19:15 (units (unkno wn) date) unknown) (unknown) (no (unknown) (unknown) 19:30 06/16/22 (units (unknown) date) unknown) (unknown) (no (unknown) (unknown) 19:45 06/16/22 (units (unknown) date) unknown) (unknown) (no (unknown) (unknown) 19:45 (units (unkno wn) date) unknown) (unknown) (no (unknown) (unknown) 2. Transaminitis, (units (unknown) date) with elevated unknown) alkaline phosphate, acute, present on admission (unknown) (no (unknown) (unknown) 2.6, phosphorus (units (unknown) date) 4.1, bili 2.1, AST unknown) 61, ALT 63, alk-phos 428, total protein 5.8, (unknown) (no (unknown) (unknown) 20:00 06/16/22 (units (unknown) date) unknown) (unknown) (no (unknown) (unknown) 20:00 (units (unkno wn) date) unknown) (unknown) (no (unknown) (unknown) 20:15 06/16/22 (units (unknown) date) unknown) (unknown) (no (unknown) (unknown) 20:30 06/16/22 (units (unknown) date) unknown) (unknown) (no (unknown) (unknown) 20:30 (units (unkno wn) date) unknown) (unknown) (no (unknown) (unknown) 20:45 06/16/22 (units (unknown) date) unknown) (unknown) (no (unknown) (unknown) 20:46 06/16/22 (units (unknown) date) unknown) (unknown) (no (unknown) (unknown) 20:46 (units (unkno wn) date) unknown) (unknown) (no (unknown) (unknown) 20:55 (units (unkno wn) date) unknown) (unknown) (no (unknown) (unknown) 20s. During admit (units (unknown) date) interview patient unknown) is pleasantly confused orientated to self (unknown) (no (unknown) (unknown) 4 mos (units (unkno wn) date) unknown) (unknown) (no (unknown) (unknown) 4.3, repeat 2.7, (units (unknown) date) procalcitonin unknown) 3.27, . Sodium 135, BUN 34, glucose 146, (unknown) (no (unknown) (unknown) 428, total protein (units (unknown) date) 5.8, albumin 3.1, unknown) CK 53, initial troponin negative, BNP 1430. (unknown) (no (unknown) (unknown) 98% on room air. (units (unknown) date) Patient did get up unknown) and ambulate to the restroom w/MA without (unknown) (no (unknown) (unknown) 98% on room air. (units (unknown) date) Patient has no unknown) WBC, but left shiftneut 8200, initial lactate (unknown) (no (unknown) (unknown) ALT 63 H (units (unkno wn) date) unknown) (unknown) (no (unknown) (unknown) ALT (units (unkno wn) date) unknown) (unknown) (no (unknown) (unknown) APTT 38 H (units (unkn own) date) unknown) (unknown) (no (unknown) (unknown) APTT (units (unkno wn) date) unknown) (unknown) (no (unknown) (unknown) AST 61 H (units (unkno wn) date) unknown) (unknown) (no (unknown) (unknown) AST (units (unkno wn) date) unknown) (unknown) (no (unknown) (unknown) Abdomen: Soft (units ( unknown) date) nontender, unknown) negative for organomegaly, or masses. Bowel sounds (unknown) (no (unknown) (unknown) Age/Sex: 86 / M (units (unknown) date) unknown) (unknown) (no (unknown) (unknown) Albumin 3.1 L (units ( unknown) date) unknown) (unknown) (no (unknown) (unknown) Albumin (units (unkno wn) date) unknown) (unknown) (no (unknown) (unknown) Albumin/Globulin (units (unknown) date) Ratio 1.1 unknown) (unknown) (no (unknown) (unknown) Albumin/Globulin (units (unknown) date) Ratio unknown) (unknown) (no (unknown) (unknown) Alkaline (units (unkno wn) date) Phosphatase 428 H unknown) (unknown) (no (unknown) (unknown) Alkaline (units (unkno wn) date) Phosphatase unknown) (unknown) (no (unknown) (unknown) Allergies (units (unkn own) date) unknown) (unknown) (no (unknown) (unknown) Allergy/AdvReac (units (unknown) date) Type Severity unknown) Reaction Status Date / Time (unknown) (no (unknown) (unknown) Assessment + Plan (units (unknown) date) narrative: unknown) (unknown) (no (unknown) (unknown) Assessment + Plan (units (unknown) date) unknown) (unknown) (no (unknown) (unknown) Asthma (units (unkno wn) date) unknown) (unknown) (no (unknown) (unknown) Atrial (units (unkno wn) date) fibrillation unknown) (unknown) (no (unknown) (unknown) BUN 34 H (units (unkno wn) date) unknown) (unknown) (no (unknown) (unknown) BUN (units (unkno wn) date) unknown) (unknown) (no (unknown) (unknown) BUN/Creatinine (units (unknown) date) Ratio 34.3 H unknown) (unknown) (no (unknown) (unknown) BUN/Creatinine (units (unknown) date) Ratio unknown) (unknown) (no (unknown) (unknown) Baso # (Auto) 100 (units (unknown) date) unknown) (unknown) (no (unknown) (unknown) Baso # (Auto) (units ( unknown) date) unknown) (unknown) (no (unknown) (unknown) Baso % (Auto) 0.8 (units (unknown) date) unknown) (unknown) (no (unknown) (unknown) Baso % (Auto) (units ( unknown) date) unknown) (unknown) (no (unknown) (unknown) Blood Pressure (units (unknown) date) 141/57 H unknown) (unknown) (no (unknown) (unknown) Blood Pressure (units (unknown) date) 141/73 H unknown) (unknown) (no (unknown) (unknown) Blood Pressure (units (unknown) date) 142/65 H 156/70 H unknown) (unknown) (no (unknown) (unknown) Blood Pressure (units (unknown) date) 142/67 H unknown) (unknown) (no (unknown) (unknown) Blood Pressure (units (unknown) date) 143/67 H unknown) (unknown) (no (unknown) (unknown) Blood Pressure (units (unknown) date) 145/69 H unknown) (unknown) (no (unknown) (unknown) Blood Pressure (units (unknown) date) 146/69 H unknown) (unknown) (no (unknown) (unknown) Blood Pressure (units (unknown) date) 147/71 H 150/72 H unknown) (unknown) (no (unknown) (unknown) Blood Pressure (units (unknown) date) 149/68 H 130/59 L unknown) (unknown) (no (unknown) (unknown) Blood Pressure (units (unknown) date) 149/78 H 155/70 H unknown) (unknown) (no (unknown) (unknown) Blood Pressure (units (unknown) date) 150/73 H unknown) (unknown) (no (unknown) (unknown) Blood Pressure (units (unknown) date) 151/72 H unknown) (unknown) (no (unknown) (unknown) Blood Pressure (units (unknown) date) 154/73 H unknown) (unknown) (no (unknown) (unknown) Blood Pressure (units (unknown) date) 156/72 H 151/72 H unknown) (unknown) (no (unknown) (unknown) Blood Pressure (units (unknown) date) 162/114 H unknown) (unknown) (no (unknown) (unknown) Blood Pressure (units (unknown) date) 164/94 H 164/96 H unknown) (unknown) (no (unknown) (unknown) Blood Pressure (units (unknown) date) 179/74 H 179/94 H unknown) (unknown) (no (unknown) (unknown) Blood Pressure (units (unknown) date) 186/112 H 169/75 H unknown) (unknown) (no (unknown) (unknown) Blood Pressure (units (unknown) date) unknown) (unknown) (no (unknown) (unknown) CK-MB (CK-2) Rel (units (unknown) date) Index TNP unknown) (unknown) (no (unknown) (unknown) CK-MB (CK-2) Rel (units (unknown) date) Index unknown) (unknown) (no (unknown) (unknown) CK-MB (CK-2) TNP (units (unknown) date) unknown) (unknown) (no (unknown) (unknown) CK-MB (CK-2) (units (u nknown) date) unknown) (unknown) (no (unknown) (unknown) COVID, influenza (units (unknown) date) a/B/RSV negative unknown) (unknown) (no (unknown) (unknown) Calcium 8.1 L (units ( unknown) date) unknown) (unknown) (no (unknown) (unknown) Calcium (units (unkno wn) date) unknown) (unknown) (no (unknown) (unknown) Carbon Dioxide 28 (units (unknown) date) unknown) (unknown) (no (unknown) (unknown) Carbon Dioxide (units (unknown) date) unknown) (unknown) (no (unknown) (unknown) Cardio: regular (units (unknown) date) rate and rhythm unknown) without murmur, rubs, or gallops, no carotid (unknown) (no (unknown) (unknown) Chest: Equal (units (u nknown) date) expansion, unknown) positive kyphoscoliosis, no nasal flaring, retractions, (unknown) (no (unknown) (unknown) Chief complaint: (units (unknown) date) Pain near unknown) pacemaker (unknown) (no (unknown) (unknown) Chloride 99 (units (un known) date) unknown) (unknown) (no (unknown) (unknown) Chloride (units (unkno wn) date) unknown) (unknown) (no (unknown) (unknown) Chronic (units (unkno wn) date) anticoagulation unknown) (unknown) (no (unknown) (unknown) Creatinine 0.99 (units (unknown) date) unknown) (unknown) (no (unknown) (unknown) Creatinine (units (unk nown) date) unknown) (unknown) (no (unknown) (unknown) Critical Care (units ( unknown) date) time: unknown) (unknown) (no (unknown) (unknown) : 1935 (units (unknown) date) Acct:[id number] unknown) (unknown) (no (unknown) (unknown) Date Patient (units (u nknown) date) Seen: 06/16/22 unknown) (unknown) (no (unknown) (unknown) Date of Service: (units (unknown) date) 06/16/22 unknown) (unknown) (no (unknown) (unknown) Yoseph Debode is (units (unknown) date) a 86-year-old male unknown) with a history of atrial fibrillation, with (unknown) (no (unknown) (unknown) Due to patient's (units (unknown) date) cognitive unknown) impairment/encepha lopathy unable to obtain HPI, ROS, (unknown) (no (unknown) (unknown) EKG atrial sensed (units (unknown) date) ventricular paced unknown) rhythm rate 72, abnormal. . Head CT (unknown) (no (unknown) (unknown) Environment (units (un known) date) unknown) (unknown) (no (unknown) (unknown) Eos # (Auto) 0 (units (unknown) date) unknown) (unknown) (no (unknown) (unknown) Eos # (Auto) (units (u nknown) date) unknown) (unknown) (no (unknown) (unknown) Eos % (Auto) 0.1 (units (unknown) date) L unknown) (unknown) (no (unknown) (unknown) Eos % (Auto) (units (u nknown) date) unknown) (unknown) (no (unknown) (unknown) Essential (units (unkn own) date) hypertension unknown) (unknown) (no (unknown) (unknown) Estimated GFR > (units (unknown) date) 60 unknown) (unknown) (no (unknown) (unknown) Estimated GFR (units ( unknown) date) unknown) (unknown) (no (unknown) (unknown) Exam Narrative: (units (unknown) date) unknown) (unknown) (no (unknown) (unknown) Exam (units (unkno wn) date) unknown) (unknown) (no (unknown) (unknown) Family + Social (units (unknown) date) History unknown) (unknown) (no (unknown) (unknown) Family History (units (unknown) date) (Reviewed 06/17/22 unknown) @ 00:47 by CASEY Crystal) (unknown) (no (unknown) (unknown) Father (units (unknown) date) Diabetes mellitus unknown) (unknown) (no (unknown) (unknown) Feels Safe in (units ( unknown) date) Current Yes, unknown) patient lives at home with his . (unknown) (no (unknown) (unknown) Full range of (units ( unknown) date) motion intact unknown) radial and pedal pulses are normal. (unknown) (no (unknown) (unknown) General: Patient (units (unknown) date) is a pleasantly unknown) confused cachectic, frail, elderly male, in no (unknown) (no (unknown) (unknown) Globulin 2.7 (units (u nknown) date) unknown) (unknown) (no (unknown) (unknown) Globulin (units (unkno wn) date) unknown) (unknown) (no (unknown) (unknown) Glucose 146 H (units ( unknown) date) unknown) (unknown) (no (unknown) (unknown) Glucose (units (unkno wn) date) unknown) (unknown) (no (unknown) (unknown) HEENT: (units (unkno wn) date) Normocephalic, unknown) atraumatic, extraocular muscles intact, oral pharynx is (unknown) (no (unknown) (unknown) Hct 46.6 (units (unkno wn) date) unknown) (unknown) (no (unknown) (unknown) Hct (units (unkno wn) date) unknown) (unknown) (no (unknown) (unknown) Head CT negative. 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 (unknown) (no (unknown) (unknown) History (units (unkno wn) date) unknown) (unknown) (no (unknown) (unknown) Home Medications (units (unknown) date) and Allergies unknown) (unknown) (no (unknown) (unknown) Home Medications (units (unknown) date) unknown) (unknown) (no (unknown) (unknown) I spent a total (units (unknown) date) of [] minutes of unknown) critical care time on this patient's care (unknown) (no (unknown) (unknown) INR 1.5 H (units (unkn own) date) unknown) (unknown) (no (unknown) (unknown) INR (units (unkno wn) date) unknown) (unknown) (no (unknown) (unknown) Influenza A (units (un known) date) (RT-PCR) Flu a unknown) negative (unknown) (no (unknown) (unknown) Influenza A (units (un known) date) (RT-PCR) unknown) (unknown) (no (unknown) (unknown) Influenza B (units (un known) date) (RT-PCR) Flu b unknown) negative (unknown) (no (unknown) (unknown) Influenza B (units (un known) date) (RT-PCR) unknown) (unknown) (no (unknown) (unknown) [facility] (units (unknown) date) [address] [place] [address] unknown) [place] [address] (unknown) (no (unknown) (unknown) Laboratory (units (unk nown) date) Results - last 24 unknown) hr (unknown) (no (unknown) (unknown) Labs (units (unkno wn) date) unknown) (unknown) (no (unknown) (unknown) Labs: (units (unkno wn) date) unknown) (unknown) (no (unknown) (unknown) Lactate 2.7 H (units ( unknown) date) unknown) (unknown) (no (unknown) (unknown) Lactate 4.3 H* (units (unknown) date) unknown) (unknown) (no (unknown) (unknown) Lactate (units (unkno wn) date) unknown) (unknown) (no (unknown) (unknown) Lipase 45 (units (unkn own) date) unknown) (unknown) (no (unknown) (unknown) Lipase (units (unkno wn) date) unknown) (unknown) (no (unknown) (unknown) Lungs: (units (unkno wn) date) Auscultation of unknown) all lung troy are clear without adventitious sounds, (unknown) (no (unknown) (unknown) Lymph # (Auto) (units (unknown) date) 400 L unknown) (unknown) (no (unknown) (unknown) Lymph # (Auto) (units (unknown) date) unknown) (unknown) (no (unknown) (unknown) Lymph % (Auto) (units (unknown) date) 4.6 L unknown) (unknown) (no (unknown) (unknown) Lymph % (Auto) (units (unknown) date) unknown) (unknown) (no (unknown) (unknown) MCH 30.4 (units (unkno wn) date) unknown) (unknown) (no (unknown) (unknown) MCH (units (unkno wn) date) unknown) (unknown) (no (unknown) (unknown) MCHC 33.0 (units (unkn own) date) unknown) (unknown) (no (unknown) (unknown) MCHC (units (unkno wn) date) unknown) (unknown) (no (unknown) (unknown) MCV 92.4 (units (unkno wn) date) unknown) (unknown) (no (unknown) (unknown) MCV (units (unkno wn) date) unknown) (unknown) (no (unknown) (unknown) Magnesium 2.6 H (units (unknown) date) unknown) (unknown) (no (unknown) (unknown) Magnesium (units (unkn own) date) unknown) (unknown) (no (unknown) (unknown) Medical History (units (unknown) date) (Updated 06/17/22 unknown) @ 00:55 [facility] (unknown) (no (unknown) (unknown) Medication (units (unk nown) date) Instructions unknown) Recorded Confirmed Type (unknown) (no (unknown) (unknown) Meds (units (unkno wn) date) unknown) (unknown) (no (unknown) (unknown) [place] # (Auto) 900 (units (unknown) date) unknown) (unknown) (no (unknown) (unknown) [place] # (Auto) (units ( unknown) date) unknown) (unknown) (no (unknown) (unknown) [place] % (Auto) 9.4 (units (unknown) date) unknown) (unknown) (no (unknown) (unknown) [place] % (Auto) (units ( unknown) date) unknown) (unknown) (no (unknown) (unknown) Mother (units (unknown) date) No problems noted. unknown) (unknown) (no (unknown) (unknown) Musculoskeletal: (units (unknown) date) Diffuse but equal unknown) throughout all extremity muscle wasting, no (unknown) (no (unknown) (unknown) NT-Pro-B (units (unkno wn) date) Natriuret Pep 1430 unknown) H (unknown) (no (unknown) (unknown) NT-Pro-B (units (unkno wn) date) Natriuret Pep unknown) (unknown) (no (unknown) (unknown) Narrative (units (unkn own) date) unknown) (unknown) (no (unknown) (unknown) Narrative: (units (unk nown) date) unknown) (unknown) (no (unknown) (unknown) Negative for JVD (units (unknown) date) unknown) (unknown) (no (unknown) (unknown) Neuro: Alert and (units (unknown) date) orientated x2 unknown) Person + Place , moves all extremities, (unknown) (no (unknown) (unknown) Neut # (Auto) (units ( unknown) date) 8200 H unknown) (unknown) (no (unknown) (unknown) Neut # (Auto) (units ( unknown) date) unknown) (unknown) (no (unknown) (unknown) Neut % (Auto) (units ( unknown) date) 85.1 H unknown) (unknown) (no (unknown) (unknown) Neut % (Auto) (units ( unknown) date) unknown) (unknown) (no (unknown) (unknown) Objective (units (unkn own) date) unknown) (unknown) (no (unknown) (unknown) Oxygen Delivery (units (unknown) date) Method Room Air unknown) (unknown) (no (unknown) (unknown) Oxygen Delivery (units (unknown) date) Method unknown) (unknown) (no (unknown) (unknown) PT 17.6 H (units (unkn own) date) unknown) (unknown) (no (unknown) (unknown) PT (units (unkno wn) date) unknown) (unknown) (no (unknown) (unknown) Pacemaker (units (unkn own) date) unknown) (unknown) (no (unknown) (unknown) Patient History (units (unknown) date) unknown) (unknown) (no (unknown) (unknown) Patient: (units (unkno wn) date) Yoseph Cardoso unknown) MR#: [id number] (unknown) (no (unknown) (unknown) Phosphorus 4.1 H (units (unknown) date) unknown) (unknown) (no (unknown) (unknown) Phosphorus (units (unk nown) date) unknown) (unknown) (no (unknown) (unknown) Plt Count 222 (units ( unknown) date) unknown) (unknown) (no (unknown) (unknown) Plt Count (units (unkn own) date) unknown) (unknown) (no (unknown) (unknown) Potassium 4.8 (units ( unknown) date) unknown) (unknown) (no (unknown) (unknown) Potassium (units (unkn own) date) unknown) (unknown) (no (unknown) (unknown) Procalcitonin (units ( unknown) date) 3.27 H unknown) (unknown) (no (unknown) (unknown) Procalcitonin (units ( unknown) date) unknown) (unknown) (no (unknown) (unknown) Provider: (units (unkn own) date) Hawa Michael unknown) 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 (unknown) (no (unknown) (unknown) Psych: Patient (units (unknown) date) has a well-kept unknown) appearance, pleasant affect, mental status (unknown) (no (unknown) (unknown) Pulse Oximetry 93 (units (unknown) date) 100 unknown) (unknown) (no (unknown) (unknown) Pulse Oximetry 94 (units (unknown) date) 96 unknown) (unknown) (no (unknown) (unknown) Pulse Oximetry 95 (units (unknown) date) unknown) (unknown) (no (unknown) (unknown) Pulse Oximetry 96 (units (unknown) date) 91 unknown) (unknown) (no (unknown) (unknown) Pulse Oximetry 96 (units (unknown) date) 99 unknown) (unknown) (no (unknown) (unknown) Pulse Oximetry 96 (units (unknown) date) unknown) (unknown) (no (unknown) (unknown) Pulse Oximetry 97 (units (unknown) date) 96 97 unknown) (unknown) (no (unknown) (unknown) Pulse Oximetry 97 (units (unknown) date) 97 98 unknown) (unknown) (no (unknown) (unknown) Pulse Oximetry 97 (units (unknown) date) 97 unknown) (unknown) (no (unknown) (unknown) Pulse Oximetry 97 (units (unknown) date) unknown) (unknown) (no (unknown) (unknown) Pulse Oximetry 98 (units (unknown) date) 97 unknown) (unknown) (no (unknown) (unknown) Pulse Oximetry 98 (units (unknown) date) unknown) (unknown) (no (unknown) (unknown) Pulse Oximetry (units (unknown) date) unknown) (unknown) (no (unknown) (unknown) Pulse Rate 111 H (units (unknown) date) unknown) (unknown) (no (unknown) (unknown) Pulse Rate 114 H (units (unknown) date) 118 H unknown) (unknown) (no (unknown) (unknown) Pulse Rate 154 H (units (unknown) date) unknown) (unknown) (no (unknown) (unknown) Pulse Rate 72 66 (units (unknown) date) unknown) (unknown) (no (unknown) (unknown) Pulse Rate 72 71 (units (unknown) date) unknown) (unknown) (no (unknown) (unknown) Pulse Rate 72 74 (units (unknown) date) unknown) (unknown) (no (unknown) (unknown) Pulse Rate 72 (units ( unknown) date) unknown) (unknown) (no (unknown) (unknown) Pulse Rate 73 74 (units (unknown) date) unknown) (unknown) (no (unknown) (unknown) Pulse Rate 73 87 (units (unknown) date) 98 H unknown) (unknown) (no (unknown) (unknown) Pulse Rate 73 (units ( unknown) date) unknown) (unknown) (no (unknown) (unknown) Pulse Rate 74 104 (units (unknown) date) H 106 H unknown) (unknown) (no (unknown) (unknown) Pulse Rate 75 116 (units (unknown) date) H unknown) (unknown) (no (unknown) (unknown) Pulse Rate 75 70 (units (unknown) date) unknown) (unknown) (no (unknown) (unknown) Pulse Rate 75 74 (units (unknown) date) 74 unknown) (unknown) (no (unknown) (unknown) Pulse Rate 75 (units ( unknown) date) unknown) (unknown) (no (unknown) (unknown) Pulse Rate 76 (units ( unknown) date) unknown) (unknown) (no (unknown) (unknown) Pulse Rate 78 75 (units (unknown) date) unknown) (unknown) (no (unknown) (unknown) Pulse Rate 84 77 (units (unknown) date) unknown) (unknown) (no (unknown) (unknown) Pulse Rate 86 72 (units (unknown) date) unknown) (unknown) (no (unknown) (unknown) Pulse Rate 98 H (units (unknown) date) unknown) (unknown) (no (unknown) (unknown) RBC 5.05 (units (unkno wn) date) unknown) (unknown) (no (unknown) (unknown) RBC (units (unkno wn) date) unknown) (unknown) (no (unknown) (unknown) RDW 14.4 (units (unkno wn) date) unknown) (unknown) (no (unknown) (unknown) RDW (units (unkno wn) date) unknown) (unknown) (no (unknown) (unknown) RSV (PCR) (units (unkn own) date) Negative unknown) (unknown) (no (unknown) (unknown) RSV (PCR) (units (unkn own) date) unknown) (unknown) (no (unknown) (unknown) Respiratory Rate (units (unknown) date) 12 25 H unknown) (unknown) (no (unknown) (unknown) Respiratory Rate (units (unknown) date) 13 26 H unknown) (unknown) (no (unknown) (unknown) Respiratory Rate (units (unknown) date) 16 20 unknown) (unknown) (no (unknown) (unknown) Respiratory Rate (units (unknown) date) 17 26 H unknown) (unknown) (no (unknown) (unknown) Respiratory Rate (units (unknown) date) 17 unknown) (unknown) (no (unknown) (unknown) Respiratory Rate (units (unknown) date) 18 32 H unknown) (unknown) (no (unknown) (unknown) Respiratory Rate (units (unknown) date) 18 unknown) (unknown) (no (unknown) (unknown) Respiratory Rate (units (unknown) date) 19 18 unknown) (unknown) (no (unknown) (unknown) Respiratory Rate (units (unknown) date) 19 34 H 39 H unknown) (unknown) (no (unknown) (unknown) Respiratory Rate (units (unknown) date) 19 unknown) (unknown) (no (unknown) (unknown) Respiratory Rate (units (unknown) date) 20 unknown) (unknown) (no (unknown) (unknown) Respiratory Rate (units (unknown) date) 22 20 unknown) (unknown) (no (unknown) (unknown) Respiratory Rate (units (unknown) date) 23 17 16 unknown) (unknown) (no (unknown) (unknown) Respiratory Rate (units (unknown) date) 23 18 unknown) (unknown) (no (unknown) (unknown) Respiratory Rate (units (unknown) date) 24 19 unknown) (unknown) (no (unknown) (unknown) Respiratory Rate (units (unknown) date) 24 23 unknown) (unknown) (no (unknown) (unknown) Respiratory Rate (units (unknown) date) 27 H unknown) (unknown) (no (unknown) (unknown) Respiratory Rate (units (unknown) date) 29 H unknown) (unknown) (no (unknown) (unknown) Respiratory Rate (units (unknown) date) 30 H 24 unknown) (unknown) (no (unknown) (unknown) Respiratory Rate (units (unknown) date) unknown) (unknown) (no (unknown) (unknown) Review of Systems (units (unknown) date) unknown) (unknown) (no (unknown) (unknown) SARS-CoV-2 (PCR) (units (unknown) date) Negative unknown) (unknown) (no (unknown) (unknown) SARS-CoV-2 (PCR) (units (unknown) date) unknown) (unknown) (no (unknown) (unknown) Safety + (units (unkno wn) date) Behavioral: unknown) (unknown) (no (unknown) (unknown) Signed By: (units (unk nown) date) unknown) (unknown) (no (unknown) (unknown) Skin: Warm Very (units (unknown) date) dry, poor turgor, unknown) appears significantly dehydrated and wasting (unknown) (no (unknown) (unknown) Smoking Status (units (unknown) date) never unknown) (unknown) (no (unknown) (unknown) Sodium 135 L (units (u nknown) date) unknown) (unknown) (no (unknown) (unknown) Sodium (units (unkno wn) date) unknown) (unknown) (no (unknown) (unknown) Substance Use (units ( unknown) date) Type does not use unknown) (unknown) (no (unknown) (unknown) Surgical History (units (unknown) date) (Updated 06/16/22 unknown) @ 21:27 by KASSI CrystalP-) (unknown) (no (unknown) (unknown) Temperature 98.1 (units (unknown) date) F unknown) (unknown) (no (unknown) (unknown) Temperature (units (un known) date) unknown) (unknown) (no (unknown) (unknown) Time Patient (units (u nknown) date) Seen: 15:35 unknown) (unknown) (no (unknown) (unknown) Time Spent With (units (unknown) date) Patient unknown) (unknown) (no (unknown) (unknown) Tobacco + (units (unkn own) date) Substance use: unknown) (unknown) (no (unknown) (unknown) Total Bilirubin (units (unknown) date) 2.1 H unknown) (unknown) (no (unknown) (unknown) Total Bilirubin (units (unknown) date) unknown) (unknown) (no (unknown) (unknown) Total Creatine (units (unknown) date) Kinase 53 L unknown) (unknown) (no (unknown) (unknown) Total Creatine (units (unknown) date) Kinase unknown) (unknown) (no (unknown) (unknown) Total Protein 5.8 (units (unknown) date) L unknown) (unknown) (no (unknown) (unknown) Total Protein (units ( unknown) date) unknown) (unknown) (no (unknown) (unknown) Troponin I < (units (u nknown) date) 0.012 unknown) (unknown) (no (unknown) (unknown) Troponin I (units (unk nown) date) unknown) (unknown) (no (unknown) (unknown) Upon admit BP (units (u nknown) date) 149/78, unknown) tachycardic heart rate 154, tachypneic R 29, O2 saturation (unknown) (no (unknown) (unknown) Ur Bilirubin (units (u nknown) date) Confirm Positive H unknown) (unknown) (no (unknown) (unknown) Ur Bilirubin (units (u nknown) date) Confirm unknown) (unknown) (no (unknown) (unknown) Ur Culture (units (unk nown) date) Indicated? unknown) Specimen cultured (unknown) (no (unknown) (unknown) Ur Culture (units (unk nown) date) Indicated? unknown) (unknown) (no (unknown) (unknown) Ur Leukocyte (units (u nknown) date) Esterase Trace H unknown) (unknown) (no (unknown) (unknown) Ur Leukocyte (units (u nknown) date) Esterase unknown) (unknown) (no (unknown) (unknown) Ur Specific (units (un known) date) [place] 1.020 unknown) (unknown) (no (unknown) (unknown) Ur Specific (units (un known) date) [place] unknown) (unknown) (no (unknown) (unknown) Ur Squamous Epith (units (unknown) date) Cells 1-5 /hpf unknown) (unknown) (no (unknown) (unknown) Ur Squamous Epith (units (unknown) date) Cells unknown) (unknown) (no (unknown) (unknown) Urine Appearance (units (unknown) date) Cloudy unknown) (unknown) (no (unknown) (unknown) Urine Appearance (units (unknown) date) unknown) (unknown) (no (unknown) (unknown) Urine Bacteria (units (unknown) date) None seen unknown) (unknown) (no (unknown) (unknown) Urine Bacteria (units (unknown) date) unknown) (unknown) (no (unknown) (unknown) Urine Bilirubin (units (unknown) date) 3+ H unknown) (unknown) (no (unknown) (unknown) Urine Bilirubin (units (unknown) date) unknown) (unknown) (no (unknown) (unknown) Urine Color Brown (units (unknown) date) unknown) (unknown) (no (unknown) (unknown) Urine Color (units (un known) date) unknown) (unknown) (no (unknown) (unknown) Urine Glucose (units ( unknown) date) (UA) Negative unknown) (unknown) (no (unknown) (unknown) Urine Glucose (units ( unknown) date) (UA) unknown) (unknown) (no (unknown) (unknown) Urine Ketones 1+ (units (unknown) date) H unknown) (unknown) (no (unknown) (unknown) Urine Ketones (units ( unknown) date) unknown) (unknown) (no (unknown) (unknown) Urine Nitrate (units ( unknown) date) Positive H unknown) (unknown) (no (unknown) (unknown) Urine Nitrate (units ( unknown) date) unknown) (unknown) (no (unknown) (unknown) Urine Occult (units (u nknown) date) Blood Trace-intact unknown) (unknown) (no (unknown) (unknown) Urine Occult (units (u nknown) date) Blood unknown) (unknown) (no (unknown) (unknown) Urine Protein 1+ (units (unknown) date) H unknown) (unknown) (no (unknown) (unknown) Urine Protein (units ( unknown) date) unknown) (unknown) (no (unknown) (unknown) Urine RBC (units (unkn own) date) 10-30/hpf H unknown) (unknown) (no (unknown) (unknown) Urine RBC (units (unkn own) date) unknown) (unknown) (no (unknown) (unknown) Urine (units (unkno wn) date) Urobilinogen 1.0 unknown) (unknown) (no (unknown) (unknown) Urine (units (unkno wn) date) Urobilinogen unknown) (unknown) (no (unknown) (unknown) Urine WBC 1-5/hpf (units (unknown) date) unknown) (unknown) (no (unknown) (unknown) Urine WBC (units (unkn own) date) unknown) (unknown) (no (unknown) (unknown) Urine pH 6.5 (units (u nknown) date) unknown) (unknown) (no (unknown) (unknown) Urine pH (units (unkno wn) date) unknown) (unknown) (no (unknown) (unknown) Vital Signs (units (un known) date) unknown) (unknown) (no (unknown) (unknown) WBC 9.6 (units (unkno wn) date) unknown) (unknown) (no (unknown) (unknown) WBC (units (unkno wn) date) unknown) (unknown) (no (unknown) (unknown) [Embedded Image (units (unknown) date) Not Available] unknown) (unknown) (no (unknown) (unknown) [From Prevnar] (units (unknown) date) and feet x unknown) (unknown) (no (unknown) (unknown) a recent 30 lb (units (unknown) date) weight loss, and unknown) night sweats with a shuffling gait x6 weeks. He (unknown) (no (unknown) (unknown) after. (units (unkno wn) date) unknown) (unknown) (no (unknown) (unknown) albumin 3.1, CK (units (unknown) date) 53, initial unknown) troponin negative, BNP 1430. EKG atrial sensed (unknown) (no (unknown) (unknown) alcohol intake (units (unknown) date) frequency a few unknown) times a month (unknown) (no (unknown) (unknown) amlodipine 5 mg (units (unknown) date) tablet 5 mg PO unknown) DAILY 06/16/22 06/16/22 History (unknown) (no (unknown) (unknown) and intact (units (unk nown) date) without rashes, unknown) ulcerations or petechiae. (unknown) (no (unknown) (unknown) and place, but a (units (unknown) date) very poor unknown) historian, stated that 'he came in today by himself (unknown) (no (unknown) (unknown) apixaban 5 mg (units ( unknown) date) tablet (Eliquis) 5 unknown) mg PO BID blood thinner 06/16/22 06/16/22 (unknown) (no (unknown) (unknown) appears is no (units ( unknown) date) distress at this unknown) time, no apparent jaundice, right upper quadrant (unknown) (no (unknown) (unknown) are present in (units (unknown) date) all 4 quadrants unknown) without guarding or rebound, no CVA tenderness. (unknown) (no (unknown) (unknown) attitude thought (units (unknown) date) context and unknown) judgment are inappropriate- confused, poor (unknown) (no (unknown) (unknown) because he had (units (unknown) date) black urine this unknown) morning'. He did not recall seeing Dr. Gillette, (unknown) (no (unknown) (unknown) bruit, no cardiac (units (unknown) date) pulsations unknown) present. (unknown) (no (unknown) (unknown) calcium 8.1, (units (u nknown) date) magnesium 2.6, unknown) phosphorus 4.1, bili 2.1, AST 61, ALT 63, alk-phos (unknown) (no (unknown) (unknown) cardiology's (units (u nknown) date) office due to unknown) deteriorating health concerns. patient admitted for (unknown) (no (unknown) (unknown) cardiology's (units (u nknown) date) office due to his unknown) significant presentation of cachexia, weakness, (unknown) (no (unknown) (unknown) clear and mucous (units (unknown) date) membranes are dry. unknown) Neck is supple and symmetric, trachea is (unknown) (no (unknown) (unknown) conjugate to of (units (unknown) date) hands unknown) (unknown) (no (unknown) (unknown) demonstrated (units (u nknown) date) bibasilar unknown) infiltrates versus inflammatory pulmonary opacities mild (unknown) (no (unknown) (unknown) differential also (units (unknown) date) includes unknown) neoplastic processes as well as infectious (unknown) (no (unknown) (unknown) difficulty, (units (un known) date) struggles slightly unknown) with given directions. Patient has no WBC, but (unknown) (no (unknown) (unknown) distress at this (units (unknown) date) time. unknown) (unknown) (no (unknown) (unknown) etiologies such (units (unknown) date) as micro abscesses unknown) (unknown) (no (unknown) (unknown) fluticasone (units (un known) date) propionate 44 44 unknown) mcg inhalation DAILY 06/16/22 06/16/22 History (unknown) (no (unknown) (unknown) for mild sepsis, (units (unknown) date) transaminitis, unknown) UTI, encephalopathy. (unknown) (no (unknown) (unknown) gabapentin 300 mg (units (unknown) date) capsule 300 mg PO unknown) BID 06/16/22 06/16/22 History (unknown) (no (unknown) (unknown) historian. (units (unk nown) date) unknown) (unknown) (no (unknown) (unknown) left shiftneut (units (unknown) date) 8200, initial unknown) lactate 4.3, repeat 2.7, procalcitonin 3.27, PT (unknown) (no (unknown) (unknown) liver, as well as (units (unknown) date) multifocal unknown) hepatocellular carcinoma or infection. Numerous (unknown) (no (unknown) (unknown) malaise, balance (units (unknown) date) coordination unknown) issues, and concerns for neoplastic syndrome with (unknown) (no (unknown) (unknown) mcg/actuation HFA (units (unknown) date) aerosol inhaler unknown) (unknown) (no (unknown) (unknown) medication (units (unk nown) date) reconciliation unknown) accurately. (unknown) (no (unknown) (unknown) midline, no (units (un known) date) adenopathy, no unknown) thyroid enlargement, nontender, no masses palpated. (unknown) (no (unknown) (unknown) mild sepsis, (units (u nknown) date) transaminitis, unknown) UTI, encephalopathy. (unknown) (no (unknown) (unknown) negative. 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 Patient denies any pain, and (unknown) (no (unknown) (unknown) obvious (units (unkno wn) date) deformity, unknown) crepitus, effusions, cyanosis, clubbing or edema present. (unknown) (no (unknown) (unknown) on room air. (units (u nknown) date) unknown) (unknown) (no (unknown) (unknown) opacities mild to (units (unknown) date) moderate right unknown) greater than left pulmonary effusion. (unknown) (no (unknown) (unknown) or labored (units (unk nown) date) breathing, mildly unknown) tachypneic. 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 Gillette (unknown) (no (unknown) (unknown) pain, or fever. (units (unknown) date) unknown) (unknown) (no (unknown) (unknown) pneumococcal (units (u nknown) date) 7-valent AdvReac unknown) Intermediate swelling Verified 06/16/22 12:46 (unknown) (no (unknown) (unknown) present on (units (unk nown) date) admission unknown) (unknown) (no (unknown) (unknown) sensation to (units (u nknown) date) touch intact, no unknown) gross deficits noted of cranial nerves. (unknown) (no (unknown) (unknown) shuffling gait x6 (units (unknown) date) weeks. unknown) (unknown) (no (unknown) (unknown) small (units (unkno wn) date) hypoattenuating unknown) lesions throughout the spleen are also nonspecific and the (unknown) (no (unknown) (unknown) tachycardia with (units (unknown) date) heart rates unknown) 111-154, and tachypneic respiratory rate in the (unknown) (no (unknown) (unknown) to moderate right (units (unknown) date) greater than left unknown) pulmonary effusion. SOFA:2 patient admitted (unknown) (no (unknown) (unknown) to moderate right (units (unknown) date) greater than left unknown) pulmonary effusion. patient admitted for (unknown) (no (unknown) (unknown) today; this time (units (unknown) date) is exclusive of unknown) procedural time. (unknown) (no (unknown) (unknown) unsure if this is (units (unknown) date) the patient's unknown) baseline. Due to cognitive impairment unable to (unknown) (no (unknown) (unknown) ventricular paced (units (unknown) date) rhythm rate 72, unknown) abnormal. COVID, influenza a/B/RSV negative. (unknown) (no (unknown) (unknown) was brought into (units (unknown) date) the ED by his unknown) . In ED patient demonstrated escalating (unknown) (no (unknown) (unknown) wheezes, rhonchi, (units (unknown) date) or rales. unknown) Result panel 220 (unknown) (no (unknown) (unknown) (no value) (units (unk nown) date) unknown) (unknown) (no (unknown) (unknown) (Flovent HFA) (units ( unknown) date) unknown) (unknown) (no (unknown) (unknown) (past 8 hours): (units (unknown) date) unknown) (unknown) (no (unknown) (unknown) - CXR ?Possible (units (unknown) date) mild right and unknown) retrocardiac opacities (unknown) (no (unknown) (unknown) -ABD/Pelvis (units (unk nown) date) CT:?Multiple unknown) ill-defined hypoattenuating mass lesions throughout the (unknown) (no (unknown) (unknown) -BLD/Urine (units (unk nown) date) culture pending unknown) (unknown) (no (unknown) (unknown) -Chest CT (units (unkn own) date) demonstrated unknown) bibasilar infiltrates versus inflammatory pulmonary (unknown) (no (unknown) (unknown) -ED:heart rates (units (unknown) date) 111-154, and unknown) tachypneic respiratory rate in the 20s. (1L bolus) (unknown) (no (unknown) (unknown) -GGT 516 -Ordered (units (unknown) date) RT upper Quad U/S unknown) tomorrow -may require (unknown) (no (unknown) (unknown) -NPO (units (unkno wn) date) unknown) (unknown) (no (unknown) (unknown) -Negative Fever, (units (unknown) date) jaundice, right unknown) upper quadrant pain (unknown) (no (unknown) (unknown) -Ordered: CRP, (units (unknown) date) ESR, AFP, EPO, unknown) hepatitis panel-trend LFT's, and inflammatory (unknown) (no (unknown) (unknown) -R Factor: 0.4 (units (unknown) date) cholestatic unknown) injury- Ordered ABD/P CT (unknown) (no (unknown) (unknown) -SOFA:2 (units (unkno wn) date) unknown) (unknown) (no (unknown) (unknown) -WBC neg, neut# (units (unknown) date) 8200, initial unknown) lactate 4.3, repeat 2.7, procalcitonin 3.27, (unknown) (no (unknown) (unknown) -admit BP 149/78, (units (unknown) date) tachycardic heart unknown) rate 154, tachypneic R 29, O2 saturation 98% (unknown) (no (unknown) (unknown) -cachexia, (units (unk nown) date) weakness, malaise unknown) balance coordination issues, and concerns for (unknown) (no (unknown) (unknown) -monitor for (units (u nknown) date) septic shock unknown) (unknown) (no (unknown) (unknown) -ordered 1L bolus (units (unknown) date) followed by NS unknown) @100 cc/HR (unknown) (no (unknown) (unknown) -phosphorus 4.1, (units (unknown) date) bili 2.1, AST 61, unknown) ALT 63, alk-phos 428, total protein 5.8,PT (unknown) (no (unknown) (unknown) -placed general (units (unknown) date) surgery consult unknown) Dr. Turner (unknown) (no (unknown) (unknown) -positive nitrate (units (unknown) date) urinalysis culture unknown) pending, transaminitis (unknown) (no (unknown) (unknown) [id number] (units (unkno wn) date) unknown) (unknown) (no (unknown) (unknown) 06/16/22 06/16/22 (units (unknown) date) 06/16/22 unknown) (unknown) (no (unknown) (unknown) 06/16/22 06/16/22 (units (unknown) date) unknown) (unknown) (no (unknown) (unknown) 06/16/22 12:35 (units (unknown) date) unknown) (unknown) (no (unknown) (unknown) 06/16/22 (units (unkno wn) date) unknown) (unknown) (no (unknown) (unknown) 1. Sepsis without (units (unknown) date) septic shock, unknown) likely hepatobiliary origin, and UTI, acute, (unknown) (no (unknown) (unknown) 12:35 12:35 12:35 (units (unknown) date) unknown) (unknown) (no (unknown) (unknown) 13:15 06/16/22 (units (unknown) date) unknown) (unknown) (no (unknown) (unknown) 13:30 (units (unkno wn) date) unknown) (unknown) (no (unknown) (unknown) 13:45 06/16/22 (units (unknown) date) unknown) (unknown) (no (unknown) (unknown) 13:46 06/16/22 (units (unknown) date) unknown) (unknown) (no (unknown) (unknown) 13:46 (units (unkno wn) date) unknown) (unknown) (no (unknown) (unknown) 14:00 06/16/22 (units (unknown) date) unknown) (unknown) (no (unknown) (unknown) 14:24 (units (unkno wn) date) unknown) (unknown) (no (unknown) (unknown) 14:30 06/16/22 (units (unknown) date) unknown) (unknown) (no (unknown) (unknown) 14:45 06/16/22 (units (unknown) date) unknown) (unknown) (no (unknown) (unknown) 15:00 (units (unkno wn) date) unknown) (unknown) (no (unknown) (unknown) 15:15 06/16/22 (units (unknown) date) unknown) (unknown) (no (unknown) (unknown) 15:30 06/16/22 (units (unknown) date) unknown) (unknown) (no (unknown) (unknown) 15:30 17:55 (units (un known) date) unknown) (unknown) (no (unknown) (unknown) 15:34 06/16/22 (units (unknown) date) unknown) (unknown) (no (unknown) (unknown) 15:34 (units (unkno wn) date) unknown) (unknown) (no (unknown) (unknown) 15:45 06/16/22 (units (unknown) date) unknown) (unknown) (no (unknown) (unknown) 15:45 (units (unkno wn) date) unknown) (unknown) (no (unknown) (unknown) 16:00 06/16/22 (units (unknown) date) unknown) (unknown) (no (unknown) (unknown) 16:15 06/16/22 (units (unknown) date) unknown) (unknown) (no (unknown) (unknown) 16:15 (units (unkno wn) date) unknown) (unknown) (no (unknown) (unknown) 16:30 06/16/22 (units (unknown) date) unknown) (unknown) (no (unknown) (unknown) 16:31 06/16/22 (units (unknown) date) unknown) (unknown) (no (unknown) (unknown) 16:31 (units (unkno wn) date) unknown) (unknown) (no (unknown) (unknown) 16:45 06/16/22 (units (unknown) date) unknown) (unknown) (no (unknown) (unknown) 17.6, INR 1.5, (units (unknown) date) PTT 38 unknown) (unknown) (no (unknown) (unknown) 17.6, INR 1.5, (units (unknown) date) PTT 38. Sodium unknown) 135, BUN 34, glucose 146, calcium 8.1, magnesium (unknown) (no (unknown) (unknown) 17:00 06/16/22 (units (unknown) date) unknown) (unknown) (no (unknown) (unknown) 17:00 (units (unkno wn) date) unknown) (unknown) (no (unknown) (unknown) 17:15 06/16/22 (units (unknown) date) unknown) (unknown) (no (unknown) (unknown) 17:15 (units (unkno wn) date) unknown) (unknown) (no (unknown) (unknown) 17:30 06/16/22 (units (unknown) date) unknown) (unknown) (no (unknown) (unknown) 17:45 (units (unkno wn) date) unknown) (unknown) (no (unknown) (unknown) 17:46 06/16/22 (units (unknown) date) unknown) (unknown) (no (unknown) (unknown) 17:59 (units (unkno wn) date) unknown) (unknown) (no (unknown) (unknown) 18:00 06/16/22 (units (unknown) date) unknown) (unknown) (no (unknown) (unknown) 18:01 06/16/22 (units (unknown) date) unknown) (unknown) (no (unknown) (unknown) 18:15 06/16/22 (units (unknown) date) unknown) (unknown) (no (unknown) (unknown) 18:15 (units (unkno wn) date) unknown) (unknown) (no (unknown) (unknown) 18:30 06/16/22 (units (unknown) date) unknown) (unknown) (no (unknown) (unknown) 18:30 (units (unkno wn) date) unknown) (unknown) (no (unknown) (unknown) 18:45 06/16/22 (units (unknown) date) unknown) (unknown) (no (unknown) (unknown) 19:00 06/16/22 (units (unknown) date) unknown) (unknown) (no (unknown) (unknown) 19:00 (units (unkno wn) date) unknown) (unknown) (no (unknown) (unknown) 19:15 06/16/22 (units (unknown) date) unknown) (unknown) (no (unknown) (unknown) 19:15 (units (unkno wn) date) unknown) (unknown) (no (unknown) (unknown) 19:30 06/16/22 (units (unknown) date) unknown) (unknown) (no (unknown) (unknown) 19:45 06/16/22 (units (unknown) date) unknown) (unknown) (no (unknown) (unknown) 19:45 (units (unkno wn) date) unknown) (unknown) (no (unknown) (unknown) 2. Transaminitis, (units (unknown) date) with elevated unknown) alkaline phosphate, acute, present on admission (unknown) (no (unknown) (unknown) 2.6, phosphorus (units (unknown) date) 4.1, bili 2.1, AST unknown) 61, ALT 63, alk-phos 428, total protein 5.8, (unknown) (no (unknown) (unknown) 20:00 06/16/22 (units (unknown) date) unknown) (unknown) (no (unknown) (unknown) 20:00 (units (unkno wn) date) unknown) (unknown) (no (unknown) (unknown) 20:15 06/16/22 (units (unknown) date) unknown) (unknown) (no (unknown) (unknown) 20:30 06/16/22 (units (unknown) date) unknown) (unknown) (no (unknown) (unknown) 20:30 (units (unkno wn) date) unknown) (unknown) (no (unknown) (unknown) 20:45 06/16/22 (units (unknown) date) unknown) (unknown) (no (unknown) (unknown) 20:46 06/16/22 (units (unknown) date) unknown) (unknown) (no (unknown) (unknown) 20:46 (units (unkno wn) date) unknown) (unknown) (no (unknown) (unknown) 20:55 (units (unkno wn) date) unknown) (unknown) (no (unknown) (unknown) 20s. During admit (units (unknown) date) interview patient unknown) is pleasantly confused orientated to self (unknown) (no (unknown) (unknown) 4 mos (units (unkno wn) date) unknown) (unknown) (no (unknown) (unknown) 4.3, repeat 2.7, (units (unknown) date) procalcitonin unknown) 3.27, . Sodium 135, BUN 34, glucose 146, (unknown) (no (unknown) (unknown) 428, total protein (units (unknown) date) 5.8, albumin 3.1, unknown) CK 53, initial troponin negative, BNP 1430. (unknown) (no (unknown) (unknown) 98% on room air. (units (unknown) date) Patient did get up unknown) and ambulate to the restroom w/MA without (unknown) (no (unknown) (unknown) 98% on room air. (units (unknown) date) Patient has no unknown) WBC, but left shiftneut 8200, initial lactate (unknown) (no (unknown) (unknown) ALT 63 H (units (unkno wn) date) unknown) (unknown) (no (unknown) (unknown) ALT (units (unkno wn) date) unknown) (unknown) (no (unknown) (unknown) APTT 38 H (units (unkn own) date) unknown) (unknown) (no (unknown) (unknown) APTT (units (unkno wn) date) unknown) (unknown) (no (unknown) (unknown) AST 61 H (units (unkno wn) date) unknown) (unknown) (no (unknown) (unknown) AST (units (unkno wn) date) unknown) (unknown) (no (unknown) (unknown) Abdomen: Soft (units ( unknown) date) nontender, unknown) negative for organomegaly, or masses. Bowel sounds (unknown) (no (unknown) (unknown) Age/Sex: 86 / M (units (unknown) date) unknown) (unknown) (no (unknown) (unknown) Albumin 3.1 L (units ( unknown) date) unknown) (unknown) (no (unknown) (unknown) Albumin (units (unkno wn) date) unknown) (unknown) (no (unknown) (unknown) Albumin/Globulin (units (unknown) date) Ratio 1.1 unknown) (unknown) (no (unknown) (unknown) Albumin/Globulin (units (unknown) date) Ratio unknown) (unknown) (no (unknown) (unknown) Alkaline (units (unkno wn) date) Phosphatase 428 H unknown) (unknown) (no (unknown) (unknown) Alkaline (units (unkno wn) date) Phosphatase unknown) (unknown) (no (unknown) (unknown) Allergies (units (unkn own) date) unknown) (unknown) (no (unknown) (unknown) Allergy/AdvReac (units (unknown) date) Type Severity unknown) Reaction Status Date / Time (unknown) (no (unknown) (unknown) Assessment + Plan (units (unknown) date) narrative: unknown) (unknown) (no (unknown) (unknown) Assessment + Plan (units (unknown) date) unknown) (unknown) (no (unknown) (unknown) Asthma (units (unkno wn) date) unknown) (unknown) (no (unknown) (unknown) Atrial (units (unkno wn) date) fibrillation unknown) (unknown) (no (unknown) (unknown) BUN 34 H (units (unkno wn) date) unknown) (unknown) (no (unknown) (unknown) BUN (units (unkno wn) date) unknown) (unknown) (no (unknown) (unknown) BUN/Creatinine (units (unknown) date) Ratio 34.3 H unknown) (unknown) (no (unknown) (unknown) BUN/Creatinine (units (unknown) date) Ratio unknown) (unknown) (no (unknown) (unknown) Baso # (Auto) 100 (units (unknown) date) unknown) (unknown) (no (unknown) (unknown) Baso # (Auto) (units ( unknown) date) unknown) (unknown) (no (unknown) (unknown) Baso % (Auto) 0.8 (units (unknown) date) unknown) (unknown) (no (unknown) (unknown) Baso % (Auto) (units ( unknown) date) unknown) (unknown) (no (unknown) (unknown) Blood Pressure (units (unknown) date) 141/57 H unknown) (unknown) (no (unknown) (unknown) Blood Pressure (units (unknown) date) 141/73 H unknown) (unknown) (no (unknown) (unknown) Blood Pressure (units (unknown) date) 142/65 H 156/70 H unknown) (unknown) (no (unknown) (unknown) Blood Pressure (units (unknown) date) 142/67 H unknown) (unknown) (no (unknown) (unknown) Blood Pressure (units (unknown) date) 143/67 H unknown) (unknown) (no (unknown) (unknown) Blood Pressure (units (unknown) date) 145/69 H unknown) (unknown) (no (unknown) (unknown) Blood Pressure (units (unknown) date) 146/69 H unknown) (unknown) (no (unknown) (unknown) Blood Pressure (units (unknown) date) 147/71 H 150/72 H unknown) (unknown) (no (unknown) (unknown) Blood Pressure (units (unknown) date) 149/68 H 130/59 L unknown) (unknown) (no (unknown) (unknown) Blood Pressure (units (unknown) date) 149/78 H 155/70 H unknown) (unknown) (no (unknown) (unknown) Blood Pressure (units (unknown) date) 150/73 H unknown) (unknown) (no (unknown) (unknown) Blood Pressure (units (unknown) date) 151/72 H unknown) (unknown) (no (unknown) (unknown) Blood Pressure (units (unknown) date) 154/73 H unknown) (unknown) (no (unknown) (unknown) Blood Pressure (units (unknown) date) 156/72 H 151/72 H unknown) (unknown) (no (unknown) (unknown) Blood Pressure (units (unknown) date) 162/114 H unknown) (unknown) (no (unknown) (unknown) Blood Pressure (units (unknown) date) 164/94 H 164/96 H unknown) (unknown) (no (unknown) (unknown) Blood Pressure (units (unknown) date) 179/74 H 179/94 H unknown) (unknown) (no (unknown) (unknown) Blood Pressure (units (unknown) date) 186/112 H 169/75 H unknown) (unknown) (no (unknown) (unknown) Blood Pressure (units (unknown) date) unknown) (unknown) (no (unknown) (unknown) CK-MB (CK-2) Rel (units (unknown) date) Index TNP unknown) (unknown) (no (unknown) (unknown) CK-MB (CK-2) Rel (units (unknown) date) Index unknown) (unknown) (no (unknown) (unknown) CK-MB (CK-2) TNP (units (unknown) date) unknown) (unknown) (no (unknown) (unknown) CK-MB (CK-2) (units (u nknown) date) unknown) (unknown) (no (unknown) (unknown) COVID, influenza (units (unknown) date) a/B/RSV negative unknown) (unknown) (no (unknown) (unknown) Calcium 8.1 L (units ( unknown) date) unknown) (unknown) (no (unknown) (unknown) Calcium (units (unkno wn) date) unknown) (unknown) (no (unknown) (unknown) Carbon Dioxide 28 (units (unknown) date) unknown) (unknown) (no (unknown) (unknown) Carbon Dioxide (units (unknown) date) unknown) (unknown) (no (unknown) (unknown) Cardio: regular (units (unknown) date) rate and rhythm unknown) without murmur, rubs, or gallops, no carotid (unknown) (no (unknown) (unknown) Chest: Equal (units (u nknown) date) expansion, unknown) positive kyphoscoliosis, no nasal flaring, retractions, (unknown) (no (unknown) (unknown) Chief complaint: (units (unknown) date) Pain near unknown) pacemaker (unknown) (no (unknown) (unknown) Chloride 99 (units (un known) date) unknown) (unknown) (no (unknown) (unknown) Chloride (units (unkno wn) date) unknown) (unknown) (no (unknown) (unknown) Chronic (units (unkno wn) date) anticoagulation unknown) (unknown) (no (unknown) (unknown) Creatinine 0.99 (units (unknown) date) unknown) (unknown) (no (unknown) (unknown) Creatinine (units (unk nown) date) unknown) (unknown) (no (unknown) (unknown) Critical Care (units ( unknown) date) time: unknown) (unknown) (no (unknown) (unknown) : 1935 (units (unknown) date) Acct:[id number] unknown) (unknown) (no (unknown) (unknown) Date Patient (units (u nknown) date) Seen: 06/16/22 unknown) (unknown) (no (unknown) (unknown) Date of Service: (units (unknown) date) 06/16/22 unknown) (unknown) (no (unknown) (unknown) Yoseph Cardoso is (units (unknown) date) a 86-year-old male unknown) with a history of atrial fibrillation, with (unknown) (no (unknown) (unknown) Due to patient's (units (unknown) date) cognitive unknown) impairment/encepha lopathy unable to obtain HPI, ROS, (unknown) (no (unknown) (unknown) EKG atrial sensed (units (unknown) date) ventricular paced unknown) rhythm rate 72, abnormal. . Head CT (unknown) (no (unknown) (unknown) Environment (units (un known) date) unknown) (unknown) (no (unknown) (unknown) Eos # (Auto) 0 (units (unknown) date) unknown) (unknown) (no (unknown) (unknown) Eos # (Auto) (units (u nknown) date) unknown) (unknown) (no (unknown) (unknown) Eos % (Auto) 0.1 (units (unknown) date) L unknown) (unknown) (no (unknown) (unknown) Eos % (Auto) (units (u nknown) date) unknown) (unknown) (no (unknown) (unknown) Essential (units (unkn own) date) hypertension unknown) (unknown) (no (unknown) (unknown) Estimated GFR > (units (unknown) date) 60 unknown) (unknown) (no (unknown) (unknown) Estimated GFR (units ( unknown) date) unknown) (unknown) (no (unknown) (unknown) Exam Narrative: (units (unknown) date) unknown) (unknown) (no (unknown) (unknown) Exam (units (unkno wn) date) unknown) (unknown) (no (unknown) (unknown) Family + Social (units (unknown) date) History unknown) (unknown) (no (unknown) (unknown) Family History (units (unknown) date) (Reviewed 06/17/22 unknown) @ 00:47 by Hawa Michael [facility]) (unknown) (no (unknown) (unknown) Father (units (unknown) date) Diabetes mellitus unknown) (unknown) (no (unknown) (unknown) Feels Safe in (units ( unknown) date) Current Yes, unknown) patient lives at home with his . (unknown) (no (unknown) (unknown) Full range of (units ( unknown) date) motion intact unknown) radial and pedal pulses are normal. (unknown) (no (unknown) (unknown) General: Patient (units (unknown) date) is a pleasantly unknown) confused cachectic, frail, elderly male, in no (unknown) (no (unknown) (unknown) Globulin 2.7 (units (u nknown) date) unknown) (unknown) (no (unknown) (unknown) Globulin (units (unkno wn) date) unknown) (unknown) (no (unknown) (unknown) Glucose 146 H (units ( unknown) date) unknown) (unknown) (no (unknown) (unknown) Glucose (units (unkno wn) date) unknown) (unknown) (no (unknown) (unknown) HEENT: (units (unkno wn) date) Normocephalic, unknown) atraumatic, extraocular muscles intact, oral pharynx is (unknown) (no (unknown) (unknown) Hct 46.6 (units (unkno wn) date) unknown) (unknown) (no (unknown) (unknown) Hct (units (unkno wn) date) unknown) (unknown) (no (unknown) (unknown) Head CT negative. 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 (unknown) (no (unknown) (unknown) History (units (unkno wn) date) unknown) (unknown) (no (unknown) (unknown) Home Medications (units (unknown) date) and Allergies unknown) (unknown) (no (unknown) (unknown) Home Medications (units (unknown) date) unknown) (unknown) (no (unknown) (unknown) I spent a total (units (unknown) date) of [] minutes of unknown) critical care time on this patient's care (unknown) (no (unknown) (unknown) INR 1.5 H (units (unkn own) date) unknown) (unknown) (no (unknown) (unknown) INR (units (unkno wn) date) unknown) (unknown) (no (unknown) (unknown) Influenza A (units (un known) date) (RT-PCR) Flu a unknown) negative (unknown) (no (unknown) (unknown) Influenza A (units (un known) date) (RT-PCR) unknown) (unknown) (no (unknown) (unknown) Influenza B (units (un known) date) (RT-PCR) Flu b unknown) negative (unknown) (no (unknown) (unknown) Influenza B (units (un known) date) (RT-PCR) unknown) (unknown) (no (unknown) (unknown) [facility] (units (unknown) date) [address] unknown) [place] [address] (unknown) (no (unknown) (unknown) Laboratory (units (unk nown) date) Results - last 24 unknown) hr (unknown) (no (unknown) (unknown) Labs (units (unkno wn) date) unknown) (unknown) (no (unknown) (unknown) Labs: (units (unkno wn) date) unknown) (unknown) (no (unknown) (unknown) Lactate 2.7 H (units ( unknown) date) unknown) (unknown) (no (unknown) (unknown) Lactate 4.3 H* (units (unknown) date) unknown) (unknown) (no (unknown) (unknown) Lactate (units (unkno wn) date) unknown) (unknown) (no (unknown) (unknown) Lipase 45 (units (unkn own) date) unknown) (unknown) (no (unknown) (unknown) Lipase (units (unkno wn) date) unknown) (unknown) (no (unknown) (unknown) Lungs: (units (unkno wn) date) Auscultation of unknown) all lung troy are clear without adventitious sounds, (unknown) (no (unknown) (unknown) Lymph # (Auto) (units (unknown) date) 400 L unknown) (unknown) (no (unknown) (unknown) Lymph # (Auto) (units (unknown) date) unknown) (unknown) (no (unknown) (unknown) Lymph % (Auto) (units (unknown) date) 4.6 L unknown) (unknown) (no (unknown) (unknown) Lymph % (Auto) (units (unknown) date) unknown) (unknown) (no (unknown) (unknown) MCH 30.4 (units (unkno wn) date) unknown) (unknown) (no (unknown) (unknown) MCH (units (unkno wn) date) unknown) (unknown) (no (unknown) (unknown) MCHC 33.0 (units (unkn own) date) unknown) (unknown) (no (unknown) (unknown) MCHC (units (unkno wn) date) unknown) (unknown) (no (unknown) (unknown) MCV 92.4 (units (unkno wn) date) unknown) (unknown) (no (unknown) (unknown) MCV (units (unkno wn) date) unknown) (unknown) (no (unknown) (unknown) Magnesium 2.6 H (units (unknown) date) unknown) (unknown) (no (unknown) (unknown) Magnesium (units (unkn own) date) unknown) (unknown) (no (unknown) (unknown) Medical History (units (unknown) date) (Updated 06/17/22 unknown) @ 00:55 by JOSE Crystal) (unknown) (no (unknown) (unknown) Medication (units (unk nown) date) Instructions unknown) Recorded Confirmed Type (unknown) (no (unknown) (unknown) Meds (units (unkno wn) date) unknown) (unknown) (no (unknown) (unknown) [place] # (Auto) 900 (units (unknown) date) unknown) (unknown) (no (unknown) (unknown) [place] # (Auto) (units ( unknown) date) unknown) (unknown) (no (unknown) (unknown) [place] % (Auto) 9.4 (units (unknown) date) unknown) (unknown) (no (unknown) (unknown) [place] % (Auto) (units ( unknown) date) unknown) (unknown) (no (unknown) (unknown) Mother (units (unknown) date) No problems noted. unknown) (unknown) (no (unknown) (unknown) Musculoskeletal: (units (unknown) date) Diffuse but equal unknown) throughout all extremity muscle wasting, no (unknown) (no (unknown) (unknown) NT-Pro-B (units (unkno wn) date) Natriuret Pep 1430 unknown) H (unknown) (no (unknown) (unknown) NT-Pro-B (units (unkno wn) date) Natriuret Pep unknown) (unknown) (no (unknown) (unknown) Narrative (units (unkn own) date) unknown) (unknown) (no (unknown) (unknown) Narrative: (units (unk nown) date) unknown) (unknown) (no (unknown) (unknown) Negative for JVD (units (unknown) date) unknown) (unknown) (no (unknown) (unknown) Neuro: Alert and (units (unknown) date) orientated x2 unknown) Person + Place , moves all extremities, (unknown) (no (unknown) (unknown) Neut # (Auto) (units ( unknown) date) 8200 H unknown) (unknown) (no (unknown) (unknown) Neut # (Auto) (units ( unknown) date) unknown) (unknown) (no (unknown) (unknown) Neut % (Auto) (units ( unknown) date) 85.1 H unknown) (unknown) (no (unknown) (unknown) Neut % (Auto) (units ( unknown) date) unknown) (unknown) (no (unknown) (unknown) Objective (units (unkn own) date) unknown) (unknown) (no (unknown) (unknown) Oxygen Delivery (units (unknown) date) Method Room Air unknown) (unknown) (no (unknown) (unknown) Oxygen Delivery (units (unknown) date) Method unknown) (unknown) (no (unknown) (unknown) PT 17.6 H (units (unkn own) date) unknown) (unknown) (no (unknown) (unknown) PT (units (unkno wn) date) unknown) (unknown) (no (unknown) (unknown) Pacemaker (units (unkn own) date) unknown) (unknown) (no (unknown) (unknown) Patient History (units (unknown) date) unknown) (unknown) (no (unknown) (unknown) Patient: (units (unkno wn) date) Yoseph Cardoso unknown) MR#: [id number] (unknown) (no (unknown) (unknown) Phosphorus 4.1 H (units (unknown) date) unknown) (unknown) (no (unknown) (unknown) Phosphorus (units (unk nown) date) unknown) (unknown) (no (unknown) (unknown) Plt Count 222 (units ( unknown) date) unknown) (unknown) (no (unknown) (unknown) Plt Count (units (unkn own) date) unknown) (unknown) (no (unknown) (unknown) Potassium 4.8 (units ( unknown) date) unknown) (unknown) (no (unknown) (unknown) Potassium (units (unkn own) date) unknown) (unknown) (no (unknown) (unknown) Procalcitonin (units ( unknown) date) 3.27 H unknown) (unknown) (no (unknown) (unknown) Procalcitonin (units ( unknown) date) unknown) (unknown) (no (unknown) (unknown) Provider: (units (unkn own) date) Hawa Michael unknown) 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 (unknown) (no (unknown) (unknown) Psych: Patient (units (unknown) date) has a well-kept unknown) appearance, pleasant affect, mental status (unknown) (no (unknown) (unknown) Pulse Oximetry 93 (units (unknown) date) 100 unknown) (unknown) (no (unknown) (unknown) Pulse Oximetry 94 (units (unknown) date) 96 unknown) (unknown) (no (unknown) (unknown) Pulse Oximetry 95 (units (unknown) date) unknown) (unknown) (no (unknown) (unknown) Pulse Oximetry 96 (units (unknown) date) 91 unknown) (unknown) (no (unknown) (unknown) Pulse Oximetry 96 (units (unknown) date) 99 unknown) (unknown) (no (unknown) (unknown) Pulse Oximetry 96 (units (unknown) date) unknown) (unknown) (no (unknown) (unknown) Pulse Oximetry 97 (units (unknown) date) 96 97 unknown) (unknown) (no (unknown) (unknown) Pulse Oximetry 97 (units (unknown) date) 97 98 unknown) (unknown) (no (unknown) (unknown) Pulse Oximetry 97 (units (unknown) date) 97 unknown) (unknown) (no (unknown) (unknown) Pulse Oximetry 97 (units (unknown) date) unknown) (unknown) (no (unknown) (unknown) Pulse Oximetry 98 (units (unknown) date) 97 unknown) (unknown) (no (unknown) (unknown) Pulse Oximetry 98 (units (unknown) date) unknown) (unknown) (no (unknown) (unknown) Pulse Oximetry (units (unknown) date) unknown) (unknown) (no (unknown) (unknown) Pulse Rate 111 H (units (unknown) date) unknown) (unknown) (no (unknown) (unknown) Pulse Rate 114 H (units (unknown) date) 118 H unknown) (unknown) (no (unknown) (unknown) Pulse Rate 154 H (units (unknown) date) unknown) (unknown) (no (unknown) (unknown) Pulse Rate 72 66 (units (unknown) date) unknown) (unknown) (no (unknown) (unknown) Pulse Rate 72 71 (units (unknown) date) unknown) (unknown) (no (unknown) (unknown) Pulse Rate 72 74 (units (unknown) date) unknown) (unknown) (no (unknown) (unknown) Pulse Rate 72 (units ( unknown) date) unknown) (unknown) (no (unknown) (unknown) Pulse Rate 73 74 (units (unknown) date) unknown) (unknown) (no (unknown) (unknown) Pulse Rate 73 87 (units (unknown) date) 98 H unknown) (unknown) (no (unknown) (unknown) Pulse Rate 73 (units ( unknown) date) unknown) (unknown) (no (unknown) (unknown) Pulse Rate 74 104 (units (unknown) date) H 106 H unknown) (unknown) (no (unknown) (unknown) Pulse Rate 75 116 (units (unknown) date) H unknown) (unknown) (no (unknown) (unknown) Pulse Rate 75 70 (units (unknown) date) unknown) (unknown) (no (unknown) (unknown) Pulse Rate 75 74 (units (unknown) date) 74 unknown) (unknown) (no (unknown) (unknown) Pulse Rate 75 (units ( unknown) date) unknown) (unknown) (no (unknown) (unknown) Pulse Rate 76 (units ( unknown) date) unknown) (unknown) (no (unknown) (unknown) Pulse Rate 78 75 (units (unknown) date) unknown) (unknown) (no (unknown) (unknown) Pulse Rate 84 77 (units (unknown) date) unknown) (unknown) (no (unknown) (unknown) Pulse Rate 86 72 (units (unknown) date) unknown) (unknown) (no (unknown) (unknown) Pulse Rate 98 H (units (unknown) date) unknown) (unknown) (no (unknown) (unknown) RBC 5.05 (units (unkno wn) date) unknown) (unknown) (no (unknown) (unknown) RBC (units (unkno wn) date) unknown) (unknown) (no (unknown) (unknown) RDW 14.4 (units (unkno wn) date) unknown) (unknown) (no (unknown) (unknown) RDW (units (unkno wn) date) unknown) (unknown) (no (unknown) (unknown) RSV (PCR) (units (unkn own) date) Negative unknown) (unknown) (no (unknown) (unknown) RSV (PCR) (units (unkn own) date) unknown) (unknown) (no (unknown) (unknown) Respiratory Rate (units (unknown) date) 12 25 H unknown) (unknown) (no (unknown) (unknown) Respiratory Rate (units (unknown) date) 13 26 H unknown) (unknown) (no (unknown) (unknown) Respiratory Rate (units (unknown) date) 16 20 unknown) (unknown) (no (unknown) (unknown) Respiratory Rate (units (unknown) date) 17 26 H unknown) (unknown) (no (unknown) (unknown) Respiratory Rate (units (unknown) date) 17 unknown) (unknown) (no (unknown) (unknown) Respiratory Rate (units (unknown) date) 18 32 H unknown) (unknown) (no (unknown) (unknown) Respiratory Rate (units (unknown) date) 18 unknown) (unknown) (no (unknown) (unknown) Respiratory Rate (units (unknown) date) 19 18 unknown) (unknown) (no (unknown) (unknown) Respiratory Rate (units (unknown) date) 19 34 H 39 H unknown) (unknown) (no (unknown) (unknown) Respiratory Rate (units (unknown) date) 19 unknown) (unknown) (no (unknown) (unknown) Respiratory Rate (units (unknown) date) 20 unknown) (unknown) (no (unknown) (unknown) Respiratory Rate (units (unknown) date) 22 20 unknown) (unknown) (no (unknown) (unknown) Respiratory Rate (units (unknown) date) 23 17 16 unknown) (unknown) (no (unknown) (unknown) Respiratory Rate (units (unknown) date) 23 18 unknown) (unknown) (no (unknown) (unknown) Respiratory Rate (units (unknown) date) 24 19 unknown) (unknown) (no (unknown) (unknown) Respiratory Rate (units (unknown) date) 24 23 unknown) (unknown) (no (unknown) (unknown) Respiratory Rate (units (unknown) date) 27 H unknown) (unknown) (no (unknown) (unknown) Respiratory Rate (units (unknown) date) 29 H unknown) (unknown) (no (unknown) (unknown) Respiratory Rate (units (unknown) date) 30 H 24 unknown) (unknown) (no (unknown) (unknown) Respiratory Rate (units (unknown) date) unknown) (unknown) (no (unknown) (unknown) Review of Systems (units (unknown) date) unknown) (unknown) (no (unknown) (unknown) SARS-CoV-2 (PCR) (units (unknown) date) Negative unknown) (unknown) (no (unknown) (unknown) SARS-CoV-2 (PCR) (units (unknown) date) unknown) (unknown) (no (unknown) (unknown) Safety + (units (unkno wn) date) Behavioral: unknown) (unknown) (no (unknown) (unknown) Signed By: (units (unk nown) date) unknown) (unknown) (no (unknown) (unknown) Skin: Warm Very (units (unknown) date) dry, poor turgor, unknown) appears significantly dehydrated and wasting (unknown) (no (unknown) (unknown) Smoking Status (units (unknown) date) never unknown) (unknown) (no (unknown) (unknown) Sodium 135 L (units (u nknown) date) unknown) (unknown) (no (unknown) (unknown) Sodium (units (unkno wn) date) unknown) (unknown) (no (unknown) (unknown) Substance Use (units ( unknown) date) Type does not use unknown) (unknown) (no (unknown) (unknown) Surgical History (units (unknown) date) (Updated 06/16/22 unknown) @ 21:27 by Hawa Michael [facility]) (unknown) (no (unknown) (unknown) Temperature 98.1 (units (unknown) date) F unknown) (unknown) (no (unknown) (unknown) Temperature (units (un known) date) unknown) (unknown) (no (unknown) (unknown) Time Patient (units (u nknown) date) Seen: 15:35 unknown) (unknown) (no (unknown) (unknown) Time Spent With (units (unknown) date) Patient unknown) (unknown) (no (unknown) (unknown) Tobacco + (units (unkn own) date) Substance use: unknown) (unknown) (no (unknown) (unknown) Total Bilirubin (units (unknown) date) 2.1 H unknown) (unknown) (no (unknown) (unknown) Total Bilirubin (units (unknown) date) unknown) (unknown) (no (unknown) (unknown) Total Creatine (units (unknown) date) Kinase 53 L unknown) (unknown) (no (unknown) (unknown) Total Creatine (units (unknown) date) Kinase unknown) (unknown) (no (unknown) (unknown) Total Protein 5.8 (units (unknown) date) L unknown) (unknown) (no (unknown) (unknown) Total Protein (units ( unknown) date) unknown) (unknown) (no (unknown) (unknown) Troponin I < (units (u nknown) date) 0.012 unknown) (unknown) (no (unknown) (unknown) Troponin I (units (unk nown) date) unknown) (unknown) (no (unknown) (unknown) Upon admit BP (units (u nknown) date) 149/78, unknown) tachycardic heart rate 154, tachypneic R 29, O2 saturation (unknown) (no (unknown) (unknown) Ur Bilirubin (units (u nknown) date) Confirm Positive H unknown) (unknown) (no (unknown) (unknown) Ur Bilirubin (units (u nknown) date) Confirm unknown) (unknown) (no (unknown) (unknown) Ur Culture (units (unk nown) date) Indicated? unknown) Specimen cultured (unknown) (no (unknown) (unknown) Ur Culture (units (unk nown) date) Indicated? unknown) (unknown) (no (unknown) (unknown) Ur Leukocyte (units (u nknown) date) Esterase Trace H unknown) (unknown) (no (unknown) (unknown) Ur Leukocyte (units (u nknown) date) Esterase unknown) (unknown) (no (unknown) (unknown) Ur Specific (units (un known) date) [place] 1.020 unknown) (unknown) (no (unknown) (unknown) Ur Specific (units (un known) date) [place] unknown) (unknown) (no (unknown) (unknown) Ur Squamous Epith (units (unknown) date) Cells 1-5 /hpf unknown) (unknown) (no (unknown) (unknown) Ur Squamous Epith (units (unknown) date) Cells unknown) (unknown) (no (unknown) (unknown) Urine Appearance (units (unknown) date) Cloudy unknown) (unknown) (no (unknown) (unknown) Urine Appearance (units (unknown) date) unknown) (unknown) (no (unknown) (unknown) Urine Bacteria (units (unknown) date) None seen unknown) (unknown) (no (unknown) (unknown) Urine Bacteria (units (unknown) date) unknown) (unknown) (no (unknown) (unknown) Urine Bilirubin (units (unknown) date) 3+ H unknown) (unknown) (no (unknown) (unknown) Urine Bilirubin (units (unknown) date) unknown) (unknown) (no (unknown) (unknown) Urine Color Brown (units (unknown) date) unknown) (unknown) (no (unknown) (unknown) Urine Color (units (un known) date) unknown) (unknown) (no (unknown) (unknown) Urine Glucose (units ( unknown) date) (UA) Negative unknown) (unknown) (no (unknown) (unknown) Urine Glucose (units ( unknown) date) (UA) unknown) (unknown) (no (unknown) (unknown) Urine Ketones 1+ (units (unknown) date) H unknown) (unknown) (no (unknown) (unknown) Urine Ketones (units ( unknown) date) unknown) (unknown) (no (unknown) (unknown) Urine Nitrate (units ( unknown) date) Positive H unknown) (unknown) (no (unknown) (unknown) Urine Nitrate (units ( unknown) date) unknown) (unknown) (no (unknown) (unknown) Urine Occult (units (u nknown) date) Blood Trace-intact unknown) (unknown) (no (unknown) (unknown) Urine Occult (units (u nknown) date) Blood unknown) (unknown) (no (unknown) (unknown) Urine Protein 1+ (units (unknown) date) H unknown) (unknown) (no (unknown) (unknown) Urine Protein (units ( unknown) date) unknown) (unknown) (no (unknown) (unknown) Urine RBC (units (unkn own) date) 10-30/hpf H unknown) (unknown) (no (unknown) (unknown) Urine RBC (units (unkn own) date) unknown) (unknown) (no (unknown) (unknown) Urine (units (unkno wn) date) Urobilinogen 1.0 unknown) (unknown) (no (unknown) (unknown) Urine (units (unkno wn) date) Urobilinogen unknown) (unknown) (no (unknown) (unknown) Urine WBC 1-5/hpf (units (unknown) date) unknown) (unknown) (no (unknown) (unknown) Urine WBC (units (unkn own) date) unknown) (unknown) (no (unknown) (unknown) Urine pH 6.5 (units (u nknown) date) unknown) (unknown) (no (unknown) (unknown) Urine pH (units (unkno wn) date) unknown) (unknown) (no (unknown) (unknown) Vital Signs (units (un known) date) unknown) (unknown) (no (unknown) (unknown) WBC 9.6 (units (unkno wn) date) unknown) (unknown) (no (unknown) (unknown) WBC (units (unkno wn) date) unknown) (unknown) (no (unknown) (unknown) [Embedded Image (units (unknown) date) Not Available] unknown) (unknown) (no (unknown) (unknown) [From Prevnar] (units (unknown) date) and feet x unknown) (unknown) (no (unknown) (unknown) a recent 30 lb (units (unknown) date) weight loss, and unknown) night sweats with a shuffling gait x6 weeks. He (unknown) (no (unknown) (unknown) after. (units (unkno wn) date) unknown) (unknown) (no (unknown) (unknown) albumin 3.1, CK (units (unknown) date) 53, initial unknown) troponin negative, BNP 1430. EKG atrial sensed (unknown) (no (unknown) (unknown) alcohol intake (units (unknown) date) frequency a few unknown) times a month (unknown) (no (unknown) (unknown) amlodipine 5 mg (units (unknown) date) tablet 5 mg PO unknown) DAILY 06/16/22 06/16/22 History (unknown) (no (unknown) (unknown) and intact (units (unk nown) date) without rashes, unknown) ulcerations or petechiae. (unknown) (no (unknown) (unknown) and place, but a (units (unknown) date) very poor unknown) historian, stated that 'he came in today by himself (unknown) (no (unknown) (unknown) apixaban 5 mg (units ( unknown) date) tablet (Eliquis) 5 unknown) mg PO BID blood thinner 06/16/22 06/16/22 (unknown) (no (unknown) (unknown) appears is no (units ( unknown) date) distress at this unknown) time, no apparent jaundice, right upper quadrant (unknown) (no (unknown) (unknown) are present in (units (unknown) date) all 4 quadrants unknown) without guarding or rebound, no CVA tenderness. (unknown) (no (unknown) (unknown) attitude thought (units (unknown) date) context and unknown) judgment are inappropriate- confused, poor (unknown) (no (unknown) (unknown) because he had (units (unknown) date) black urine this unknown) morning'. He did not recall seeing Dr. Gillette, (unknown) (no (unknown) (unknown) bruit, no cardiac (units (unknown) date) pulsations unknown) present. (unknown) (no (unknown) (unknown) calcium 8.1, (units (u nknown) date) magnesium 2.6, unknown) phosphorus 4.1, bili 2.1, AST 61, ALT 63, alk-phos (unknown) (no (unknown) (unknown) cardiology's (units (u nknown) date) office due to unknown) deteriorating health concerns. patient admitted for (unknown) (no (unknown) (unknown) cardiology's (units (u nknown) date) office due to his unknown) significant presentation of cachexia, weakness, (unknown) (no (unknown) (unknown) clear and mucous (units (unknown) date) membranes are dry. unknown) Neck is supple and symmetric, trachea is (unknown) (no (unknown) (unknown) conjugate to of (units (unknown) date) hands unknown) (unknown) (no (unknown) (unknown) demonstrated (units (u nknown) date) bibasilar unknown) infiltrates versus inflammatory pulmonary opacities mild (unknown) (no (unknown) (unknown) differential also (units (unknown) date) includes unknown) neoplastic processes as well as infectious (unknown) (no (unknown) (unknown) difficulty, (units (un known) date) struggles slightly unknown) with given directions. Patient has no WBC, but (unknown) (no (unknown) (unknown) distress at this (units (unknown) date) time. unknown) (unknown) (no (unknown) (unknown) etiologies such (units (unknown) date) as micro abscesses unknown) (unknown) (no (unknown) (unknown) fluticasone (units (un known) date) propionate 44 44 unknown) mcg inhalation DAILY 06/16/22 06/16/22 History (unknown) (no (unknown) (unknown) for mild sepsis, (units (unknown) date) transaminitis, unknown) UTI, encephalopathy. (unknown) (no (unknown) (unknown) gabapentin 300 mg (units (unknown) date) capsule 300 mg PO unknown) BID 06/16/22 06/16/22 History (unknown) (no (unknown) (unknown) historian. (units (unk nown) date) unknown) (unknown) (no (unknown) (unknown) left shiftneut (units (unknown) date) 8200, initial unknown) lactate 4.3, repeat 2.7, procalcitonin 3.27, PT (unknown) (no (unknown) (unknown) liver, as well as (units (unknown) date) multifocal unknown) hepatocellular carcinoma or infection. Numerous (unknown) (no (unknown) (unknown) malaise, balance (units (unknown) date) coordination unknown) issues, and concerns for neoplastic syndrome with (unknown) (no (unknown) (unknown) markers. (units (unkno wn) date) unknown) (unknown) (no (unknown) (unknown) mcg/actuation HFA (units (unknown) date) aerosol inhaler unknown) (unknown) (no (unknown) (unknown) medication (units (unk nown) date) reconciliation unknown) accurately. (unknown) (no (unknown) (unknown) midline, no (units (un known) date) adenopathy, no unknown) thyroid enlargement, nontender, no masses palpated. (unknown) (no (unknown) (unknown) mild sepsis, (units (u nknown) date) transaminitis, unknown) UTI, encephalopathy. (unknown) (no (unknown) (unknown) negative. 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 Patient denies any pain, and (unknown) (no (unknown) (unknown) obvious (units (unkno wn) date) deformity, unknown) crepitus, effusions, cyanosis, clubbing or edema present. (unknown) (no (unknown) (unknown) on room air. (units (u nknown) date) unknown) (unknown) (no (unknown) (unknown) opacities mild to (units (unknown) date) moderate right unknown) greater than left pulmonary effusion. (unknown) (no (unknown) (unknown) or labored (units (unk nown) date) breathing, mildly unknown) tachypneic. 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 Gillette (unknown) (no (unknown) (unknown) pain, or fever. (units (unknown) date) unknown) (unknown) (no (unknown) (unknown) pneumococcal (units (u nknown) date) 7-valent AdvReac unknown) Intermediate swelling Verified 06/16/22 12:46 (unknown) (no (unknown) (unknown) present on (units (unk nown) date) admission unknown) (unknown) (no (unknown) (unknown) sensation to (units (u nknown) date) touch intact, no unknown) gross deficits noted of cranial nerves. (unknown) (no (unknown) (unknown) shuffling gait x6 (units (unknown) date) weeks. unknown) (unknown) (no (unknown) (unknown) small (units (unkno wn) date) hypoattenuating unknown) lesions throughout the spleen are also nonspecific and the (unknown) (no (unknown) (unknown) tachycardia with (units (unknown) date) heart rates unknown) 111-154, and tachypneic respiratory rate in the (unknown) (no (unknown) (unknown) to moderate right (units (unknown) date) greater than left unknown) pulmonary effusion. SOFA:2 patient admitted (unknown) (no (unknown) (unknown) to moderate right (units (unknown) date) greater than left unknown) pulmonary effusion. patient admitted for (unknown) (no (unknown) (unknown) today; this time (units (unknown) date) is exclusive of unknown) procedural time. (unknown) (no (unknown) (unknown) unsure if this is (units (unknown) date) the patient's unknown) baseline. Due to cognitive impairment unable to (unknown) (no (unknown) (unknown) ventricular paced (units (unknown) date) rhythm rate 72, unknown) abnormal. COVID, influenza a/B/RSV negative. (unknown) (no (unknown) (unknown) was brought into (units (unknown) date) the ED by his unknown) . In ED patient demonstrated escalating (unknown) (no (unknown) (unknown) wheezes, rhonchi, (units (unknown) date) or rales. unknown) Result panel 221 (unknown) (no (unknown) (unknown) (no value) (units (unk nown) date) unknown) (unknown) (no (unknown) (unknown) (Flovent HFA) (units ( unknown) date) unknown) (unknown) (no (unknown) (unknown) (past 8 hours): (units (unknown) date) unknown) (unknown) (no (unknown) (unknown) - CXR ?Possible (units (unknown) date) mild right and unknown) retrocardiac opacities (unknown) (no (unknown) (unknown) -ABD/Pelvis (units (unk nown) date) CT:?Multiple unknown) ill-defined hypoattenuating mass lesions throughout the (unknown) (no (unknown) (unknown) -BLD/Urine (units (unk nown) date) culture pending unknown) (unknown) (no (unknown) (unknown) -Chest CT (units (unkn own) date) demonstrated unknown) bibasilar infiltrates versus inflammatory pulmonary (unknown) (no (unknown) (unknown) -[id number] cc/HR (units (unknown) date) unknown) (unknown) (no (unknown) (unknown) -ED:heart rates (units (unknown) date) 111-154, and unknown) tachypneic respiratory rate in the 20s. (1L bolus) (unknown) (no (unknown) (unknown) -GGT 516 -Ordered (units (unknown) date) RT upper Quad U/S unknown) tomorrow -may require (unknown) (no (unknown) (unknown) -[id number] checks (units (unknown) date) while NPO Only unknown) (unknown) (no (unknown) (unknown) -Negative Fever, (units (unknown) date) jaundice, right unknown) upper quadrant pain (unknown) (no (unknown) (unknown) -Ordered: CRP, (units (unknown) date) ESR, AFP, EPO, unknown) hepatitis panel-trend LFT's, and inflammatory (unknown) (no (unknown) (unknown) -R Factor: 0.4 (units (unknown) date) cholestatic unknown) injury- Ordered ABD/P CT (unknown) (no (unknown) (unknown) -SOFA:2 (units (unkno wn) date) unknown) (unknown) (no (unknown) (unknown) -Sodium 135, BUN (units (unknown) date) 34, glucose 146, unknown) calcium 8.1, magnesium 2.6, phosphorus 4.1, (unknown) (no (unknown) (unknown) -Suspect (units (unkno wn) date) dehydration-patien unknown) t appears severely volume depleted (unknown) (no (unknown) (unknown) -WBC neg, neut# (units (unknown) date) 8200, initial unknown) lactate 4.3, repeat 2.7, procalcitonin 3.27, (unknown) (no (unknown) (unknown) -admit BP 149/78, (units (unknown) date) tachycardic heart unknown) rate 154, tachypneic R 29, O2 saturation 98% (unknown) (no (unknown) (unknown) -bladder scans as (units (unknown) date) needed, postvoid unknown) residual >500cc -straight cath, 2nd postvoid (unknown) (no (unknown) (unknown) -cachexia, (units (unk nown) date) weakness, malaise unknown) balance coordination issues, and concerns for (unknown) (no (unknown) (unknown) -initiated Zosyn (units (unknown) date) unknown) (unknown) (no (unknown) (unknown) -monitor for (units (u nknown) date) septic shock unknown) (unknown) (no (unknown) (unknown) -ordered 1L bolus (units (unknown) date) followed by unknown) [id number] cc/HR (unknown) (no (unknown) (unknown) -pain and (units (unkn own) date) antiemetic unknown) management (unknown) (no (unknown) (unknown) -phosphorus 4.1, (units (unknown) date) bili 2.1, AST 61, unknown) ALT 63, alk-phos 428, total protein 5.8,PT (unknown) (no (unknown) (unknown) -placed general (units (unknown) date) surgery consult unknown) Dr. Turner (unknown) (no (unknown) (unknown) -positive nitrate (units (unknown) date) urinalysis culture unknown) pending, transaminitis (unknown) (no (unknown) (unknown) -urinalysis (units (un known) date) brown, positive unknown) for protein, ketones, nitrites, bili 3+, leuks, RBC (unknown) (no (unknown) (unknown) [id number] (units (unkno wn) date) unknown) (unknown) (no (unknown) (unknown) 06/16/22 06/16/22 (units (unknown) date) 06/16/22 unknown) (unknown) (no (unknown) (unknown) 06/16/22 06/16/22 (units (unknown) date) unknown) (unknown) (no (unknown) (unknown) 06/16/22 12:35 (units (unknown) date) unknown) (unknown) (no (unknown) (unknown) 06/16/22 (units (unkno wn) date) unknown) (unknown) (no (unknown) (unknown) 1. Sepsis without (units (unknown) date) septic shock, unknown) likely hepatobiliary origin, and UTI, acute, (unknown) (no (unknown) (unknown) 10-30- Culture (units (unknown) date) pending unknown) (unknown) (no (unknown) (unknown) 12:35 12:35 12:35 (units (unknown) date) unknown) (unknown) (no (unknown) (unknown) 13:15 06/16/22 (units (unknown) date) unknown) (unknown) (no (unknown) (unknown) 13:30 (units (unkno wn) date) unknown) (unknown) (no (unknown) (unknown) 13:45 06/16/22 (units (unknown) date) unknown) (unknown) (no (unknown) (unknown) 13:46 06/16/22 (units (unknown) date) unknown) (unknown) (no (unknown) (unknown) 13:46 (units (unkno wn) date) unknown) (unknown) (no (unknown) (unknown) 14:00 06/16/22 (units (unknown) date) unknown) (unknown) (no (unknown) (unknown) 14:24 (units (unkno wn) date) unknown) (unknown) (no (unknown) (unknown) 14:30 06/16/22 (units (unknown) date) unknown) (unknown) (no (unknown) (unknown) 14:45 06/16/22 (units (unknown) date) unknown) (unknown) (no (unknown) (unknown) 15:00 (units (unkno wn) date) unknown) (unknown) (no (unknown) (unknown) 15:15 06/16/22 (units (unknown) date) unknown) (unknown) (no (unknown) (unknown) 15:30 06/16/22 (units (unknown) date) unknown) (unknown) (no (unknown) (unknown) 15:30 17:55 (units (un known) date) unknown) (unknown) (no (unknown) (unknown) 15:34 06/16/22 (units (unknown) date) unknown) (unknown) (no (unknown) (unknown) 15:34 (units (unkno wn) date) unknown) (unknown) (no (unknown) (unknown) 15:45 06/16/22 (units (unknown) date) unknown) (unknown) (no (unknown) (unknown) 15:45 (units (unkno wn) date) unknown) (unknown) (no (unknown) (unknown) 16:00 06/16/22 (units (unknown) date) unknown) (unknown) (no (unknown) (unknown) 16:15 06/16/22 (units (unknown) date) unknown) (unknown) (no (unknown) (unknown) 16:15 (units (unkno wn) date) unknown) (unknown) (no (unknown) (unknown) 16:30 06/16/22 (units (unknown) date) unknown) (unknown) (no (unknown) (unknown) 16:31 06/16/22 (units (unknown) date) unknown) (unknown) (no (unknown) (unknown) 16:31 (units (unkno wn) date) unknown) (unknown) (no (unknown) (unknown) 16:45 06/16/22 (units (unknown) date) unknown) (unknown) (no (unknown) (unknown) 17.6, INR 1.5, (units (unknown) date) PTT 38 unknown) (unknown) (no (unknown) (unknown) 17.6, INR 1.5, (units (unknown) date) PTT 38. Sodium unknown) 135, BUN 34, glucose 146, calcium 8.1, magnesium (unknown) (no (unknown) (unknown) 17:00 06/16/22 (units (unknown) date) unknown) (unknown) (no (unknown) (unknown) 17:00 (units (unkno wn) date) unknown) (unknown) (no (unknown) (unknown) 17:15 06/16/22 (units (unknown) date) unknown) (unknown) (no (unknown) (unknown) 17:15 (units (unkno wn) date) unknown) (unknown) (no (unknown) (unknown) 17:30 06/16/22 (units (unknown) date) unknown) (unknown) (no (unknown) (unknown) 17:45 (units (unkno wn) date) unknown) (unknown) (no (unknown) (unknown) 17:46 06/16/22 (units (unknown) date) unknown) (unknown) (no (unknown) (unknown) 17:59 (units (unkno wn) date) unknown) (unknown) (no (unknown) (unknown) 18:00 06/16/22 (units (unknown) date) unknown) (unknown) (no (unknown) (unknown) 18:01 06/16/22 (units (unknown) date) unknown) (unknown) (no (unknown) (unknown) 18:15 06/16/22 (units (unknown) date) unknown) (unknown) (no (unknown) (unknown) 18:15 (units (unkno wn) date) unknown) (unknown) (no (unknown) (unknown) 18:30 06/16/22 (units (unknown) date) unknown) (unknown) (no (unknown) (unknown) 18:30 (units (unkno wn) date) unknown) (unknown) (no (unknown) (unknown) 18:45 06/16/22 (units (unknown) date) unknown) (unknown) (no (unknown) (unknown) 19:00 06/16/22 (units (unknown) date) unknown) (unknown) (no (unknown) (unknown) 19:00 (units (unkno wn) date) unknown) (unknown) (no (unknown) (unknown) 19:15 06/16/22 (units (unknown) date) unknown) (unknown) (no (unknown) (unknown) 19:15 (units (unkno wn) date) unknown) (unknown) (no (unknown) (unknown) 19:30 06/16/22 (units (unknown) date) unknown) (unknown) (no (unknown) (unknown) 19:45 06/16/22 (units (unknown) date) unknown) (unknown) (no (unknown) (unknown) 19:45 (units (unkno wn) date) unknown) (unknown) (no (unknown) (unknown) 2. Transaminitis, (units (unknown) date) with elevated unknown) alkaline phosphate, acute, present on admission (unknown) (no (unknown) (unknown) 2.6, phosphorus (units (unknown) date) 4.1, bili 2.1, AST unknown) 61, ALT 63, alk-phos 428, total protein 5.8, (unknown) (no (unknown) (unknown) 20:00 06/16/22 (units (unknown) date) unknown) (unknown) (no (unknown) (unknown) 20:00 (units (unkno wn) date) unknown) (unknown) (no (unknown) (unknown) 20:15 06/16/22 (units (unknown) date) unknown) (unknown) (no (unknown) (unknown) 20:30 06/16/22 (units (unknown) date) unknown) (unknown) (no (unknown) (unknown) 20:30 (units (unkno wn) date) unknown) (unknown) (no (unknown) (unknown) 20:45 06/16/22 (units (unknown) date) unknown) (unknown) (no (unknown) (unknown) 20:46 06/16/22 (units (unknown) date) unknown) (unknown) (no (unknown) (unknown) 20:46 (units (unkno wn) date) unknown) (unknown) (no (unknown) (unknown) 20:55 (units (unkno wn) date) unknown) (unknown) (no (unknown) (unknown) 20s. During admit (units (unknown) date) interview patient unknown) is pleasantly confused orientated to self (unknown) (no (unknown) (unknown) 3. UTI, acute, (units (unknown) date) present on unknown) admission (unknown) (no (unknown) (unknown) 4 mos (units (unkno wn) date) unknown) (unknown) (no (unknown) (unknown) 4.3, repeat 2.7, (units (unknown) date) procalcitonin unknown) 3.27, . bili 2.1, AST 61, ALT 63, alk-phos (unknown) (no (unknown) (unknown) 428, total protein (units (unknown) date) 5.8, albumin 3.1, unknown) CK 53, initial troponin negative, BNP 1430. (unknown) (no (unknown) (unknown) 98% on room air. (units (unknown) date) Patient did get up unknown) and ambulate to the restroom w/MA without (unknown) (no (unknown) (unknown) 98% on room air. (units (unknown) date) Patient has no unknown) WBC, but left shiftneut 8200, initial lactate (unknown) (no (unknown) (unknown) A1C 5.8% (units (unkno wn) date) unknown) (unknown) (no (unknown) (unknown) ALT 63 H (units (unkno wn) date) unknown) (unknown) (no (unknown) (unknown) ALT (units (unkno wn) date) unknown) (unknown) (no (unknown) (unknown) APTT 38 H (units (unkn own) date) unknown) (unknown) (no (unknown) (unknown) APTT (units (unkno wn) date) unknown) (unknown) (no (unknown) (unknown) AST 61 H (units (unkno wn) date) unknown) (unknown) (no (unknown) (unknown) AST (units (unkno wn) date) unknown) (unknown) (no (unknown) (unknown) Abdomen: Soft (units ( unknown) date) nontender, unknown) negative for organomegaly, or masses. Bowel sounds (unknown) (no (unknown) (unknown) Age/Sex: 86 / M (units (unknown) date) unknown) (unknown) (no (unknown) (unknown) Albumin 3.1 L (units ( unknown) date) unknown) (unknown) (no (unknown) (unknown) Albumin (units (unkno wn) date) unknown) (unknown) (no (unknown) (unknown) Albumin/Globulin (units (unknown) date) Ratio 1.1 unknown) (unknown) (no (unknown) (unknown) Albumin/Globulin (units (unknown) date) Ratio unknown) (unknown) (no (unknown) (unknown) Alkaline (units (unkno wn) date) Phosphatase 428 H unknown) (unknown) (no (unknown) (unknown) Alkaline (units (unkno wn) date) Phosphatase unknown) (unknown) (no (unknown) (unknown) Allergies (units (unkn own) date) unknown) (unknown) (no (unknown) (unknown) Allergy/AdvReac (units (unknown) date) Type Severity unknown) Reaction Status Date / Time (unknown) (no (unknown) (unknown) Assessment + Plan (units (unknown) date) narrative: unknown) (unknown) (no (unknown) (unknown) Assessment + Plan (units (unknown) date) unknown) (unknown) (no (unknown) (unknown) Asthma (units (unkno wn) date) unknown) (unknown) (no (unknown) (unknown) Atrial (units (unkno wn) date) fibrillation unknown) (unknown) (no (unknown) (unknown) BUN 34 H (units (unkno wn) date) unknown) (unknown) (no (unknown) (unknown) BUN (units (unkno wn) date) unknown) (unknown) (no (unknown) (unknown) BUN/Creatinine (units (unknown) date) Ratio 34.3 H unknown) (unknown) (no (unknown) (unknown) BUN/Creatinine (units (unknown) date) Ratio unknown) (unknown) (no (unknown) (unknown) Baso # (Auto) 100 (units (unknown) date) unknown) (unknown) (no (unknown) (unknown) Baso # (Auto) (units ( unknown) date) unknown) (unknown) (no (unknown) (unknown) Baso % (Auto) 0.8 (units (unknown) date) unknown) (unknown) (no (unknown) (unknown) Baso % (Auto) (units ( unknown) date) unknown) (unknown) (no (unknown) (unknown) Blood Pressure (units (unknown) date) 141/57 H unknown) (unknown) (no (unknown) (unknown) Blood Pressure (units (unknown) date) 141/73 H unknown) (unknown) (no (unknown) (unknown) Blood Pressure (units (unknown) date) 142/65 H 156/70 H unknown) (unknown) (no (unknown) (unknown) Blood Pressure (units (unknown) date) 142/67 H unknown) (unknown) (no (unknown) (unknown) Blood Pressure (units (unknown) date) 143/67 H unknown) (unknown) (no (unknown) (unknown) Blood Pressure (units (unknown) date) 145/69 H unknown) (unknown) (no (unknown) (unknown) Blood Pressure (units (unknown) date) 146/69 H unknown) (unknown) (no (unknown) (unknown) Blood Pressure (units (unknown) date) 147/71 H 150/72 H unknown) (unknown) (no (unknown) (unknown) Blood Pressure (units (unknown) date) 149/68 H 130/59 L unknown) (unknown) (no (unknown) (unknown) Blood Pressure (units (unknown) date) 149/78 H 155/70 H unknown) (unknown) (no (unknown) (unknown) Blood Pressure (units (unknown) date) 150/73 H unknown) (unknown) (no (unknown) (unknown) Blood Pressure (units (unknown) date) 151/72 H unknown) (unknown) (no (unknown) (unknown) Blood Pressure (units (unknown) date) 154/73 H unknown) (unknown) (no (unknown) (unknown) Blood Pressure (units (unknown) date) 156/72 H 151/72 H unknown) (unknown) (no (unknown) (unknown) Blood Pressure (units (unknown) date) 162/114 H unknown) (unknown) (no (unknown) (unknown) Blood Pressure (units (unknown) date) 164/94 H 164/96 H unknown) (unknown) (no (unknown) (unknown) Blood Pressure (units (unknown) date) 179/74 H 179/94 H unknown) (unknown) (no (unknown) (unknown) Blood Pressure (units (unknown) date) 186/112 H 169/75 H unknown) (unknown) (no (unknown) (unknown) Blood Pressure (units (unknown) date) unknown) (unknown) (no (unknown) (unknown) CK-MB (CK-2) Rel (units (unknown) date) Index TNP unknown) (unknown) (no (unknown) (unknown) CK-MB (CK-2) Rel (units (unknown) date) Index unknown) (unknown) (no (unknown) (unknown) CK-MB (CK-2) TNP (units (unknown) date) unknown) (unknown) (no (unknown) (unknown) CK-MB (CK-2) (units (u nknown) date) unknown) (unknown) (no (unknown) (unknown) COVID, influenza (units (unknown) date) a/B/RSV negative unknown) (unknown) (no (unknown) (unknown) Calcium 8.1 L (units ( unknown) date) unknown) (unknown) (no (unknown) (unknown) Calcium (units (unkno wn) date) unknown) (unknown) (no (unknown) (unknown) Carbon Dioxide 28 (units (unknown) date) unknown) (unknown) (no (unknown) (unknown) Carbon Dioxide (units (unknown) date) unknown) (unknown) (no (unknown) (unknown) Cardio: regular (units (unknown) date) rate and rhythm unknown) without murmur, rubs, or gallops, no carotid (unknown) (no (unknown) (unknown) Chest: Equal (units (u nknown) date) expansion, unknown) positive kyphoscoliosis, no nasal flaring, retractions, (unknown) (no (unknown) (unknown) Chief complaint: (units (unknown) date) Pain near unknown) pacemaker (unknown) (no (unknown) (unknown) Chloride 99 (units (un known) date) unknown) (unknown) (no (unknown) (unknown) Chloride (units (unkno wn) date) unknown) (unknown) (no (unknown) (unknown) Chronic (units (unkno wn) date) anticoagulation unknown) (unknown) (no (unknown) (unknown) Creatinine 0.99 (units (unknown) date) unknown) (unknown) (no (unknown) (unknown) Creatinine (units (unk nown) date) unknown) (unknown) (no (unknown) (unknown) Critical Care (units ( unknown) date) time: unknown) (unknown) (no (unknown) (unknown) : 1935 (units (unknown) date) Acct:[id number] unknown) (unknown) (no (unknown) (unknown) Date Patient (units (u nknown) date) Seen: 06/16/22 unknown) (unknown) (no (unknown) (unknown) Date of Service: (units (unknown) date) 06/16/22 unknown) (unknown) (no (unknown) (unknown) Yoseph Cardoso is (units (unknown) date) a 86-year-old male unknown) with a history of atrial fibrillation, with (unknown) (no (unknown) (unknown) Due to patient's (units (unknown) date) cognitive unknown) impairment/encepha lopathy unable to obtain HPI, ROS, (unknown) (no (unknown) (unknown) EKG atrial sensed (units (unknown) date) ventricular paced unknown) rhythm rate 72, abnormal. . Head CT (unknown) (no (unknown) (unknown) Environment (units (un known) date) unknown) (unknown) (no (unknown) (unknown) Eos # (Auto) 0 (units (unknown) date) unknown) (unknown) (no (unknown) (unknown) Eos # (Auto) (units (u nknown) date) unknown) (unknown) (no (unknown) (unknown) Eos % (Auto) 0.1 (units (unknown) date) L unknown) (unknown) (no (unknown) (unknown) Eos % (Auto) (units (u nknown) date) unknown) (unknown) (no (unknown) (unknown) Essential (units (unkn own) date) hypertension unknown) (unknown) (no (unknown) (unknown) Estimated GFR > (units (unknown) date) 60 unknown) (unknown) (no (unknown) (unknown) Estimated GFR (units ( unknown) date) unknown) (unknown) (no (unknown) (unknown) Exam Narrative: (units (unknown) date) unknown) (unknown) (no (unknown) (unknown) Exam (units (unkno wn) date) unknown) (unknown) (no (unknown) (unknown) Family + Social (units (unknown) date) History unknown) (unknown) (no (unknown) (unknown) Family History (units (unknown) date) (Reviewed 06/17/22 unknown) @ 00:47 by Hawa Michael [facility]) (unknown) (no (unknown) (unknown) Father (units (unknown) date) Diabetes mellitus unknown) (unknown) (no (unknown) (unknown) Feels Safe in (units ( unknown) date) Current Yes, unknown) patient lives at home with his . (unknown) (no (unknown) (unknown) Full range of (units ( unknown) date) motion intact unknown) radial and pedal pulses are normal. (unknown) (no (unknown) (unknown) General: Patient (units (unknown) date) is a pleasantly unknown) confused cachectic, frail, elderly male, in no (unknown) (no (unknown) (unknown) Globulin 2.7 (units (u nknown) date) unknown) (unknown) (no (unknown) (unknown) Globulin (units (unkno wn) date) unknown) (unknown) (no (unknown) (unknown) Glucose 146 H (units ( unknown) date) unknown) (unknown) (no (unknown) (unknown) Glucose (units (unkno wn) date) unknown) (unknown) (no (unknown) (unknown) HEENT: (units (unkno wn) date) Normocephalic, unknown) atraumatic, extraocular muscles intact, oral pharynx is (unknown) (no (unknown) (unknown) Hct 46.6 (units (unkno wn) date) unknown) (unknown) (no (unknown) (unknown) Hct (units (unkno wn) date) unknown) (unknown) (no (unknown) (unknown) Head CT negative. 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 (unknown) (no (unknown) (unknown) History (units (unkno wn) date) unknown) (unknown) (no (unknown) (unknown) Home Medications (units (unknown) date) and Allergies unknown) (unknown) (no (unknown) (unknown) Home Medications (units (unknown) date) unknown) (unknown) (no (unknown) (unknown) I spent a total (units (unknown) date) of [] minutes of unknown) critical care time on this patient's care (unknown) (no (unknown) (unknown) INR 1.5 H (units (unkn own) date) unknown) (unknown) (no (unknown) (unknown) INR (units (unkno wn) date) unknown) (unknown) (no (unknown) (unknown) Influenza A (units (un known) date) (RT-PCR) Flu a unknown) negative (unknown) (no (unknown) (unknown) Influenza A (units (un known) date) (RT-PCR) unknown) (unknown) (no (unknown) (unknown) Influenza B (units (un known) date) (RT-PCR) Flu b unknown) negative (unknown) (no (unknown) (unknown) Influenza B (units (un known) date) (RT-PCR) unknown) (unknown) (no (unknown) (unknown) [facility] (units (unknown) date) [address] unknown) [place] [address] (unknown) (no (unknown) (unknown) Laboratory (units (unk nown) date) Results - last 24 unknown) hr (unknown) (no (unknown) (unknown) Labs (units (unkno wn) date) unknown) (unknown) (no (unknown) (unknown) Labs: (units (unkno wn) date) unknown) (unknown) (no (unknown) (unknown) Lactate 2.7 H (units ( unknown) date) unknown) (unknown) (no (unknown) (unknown) Lactate 4.3 H* (units (unknown) date) unknown) (unknown) (no (unknown) (unknown) Lactate (units (unkno wn) date) unknown) (unknown) (no (unknown) (unknown) Lipase 45 (units (unkn own) date) unknown) (unknown) (no (unknown) (unknown) Lipase (units (unkno wn) date) unknown) (unknown) (no (unknown) (unknown) Lungs: (units (unkno wn) date) Auscultation of unknown) all lung troy are clear without adventitious sounds, (unknown) (no (unknown) (unknown) Lymph # (Auto) (units (unknown) date) 400 L unknown) (unknown) (no (unknown) (unknown) Lymph # (Auto) (units (unknown) date) unknown) (unknown) (no (unknown) (unknown) Lymph % (Auto) (units (unknown) date) 4.6 L unknown) (unknown) (no (unknown) (unknown) Lymph % (Auto) (units (unknown) date) unknown) (unknown) (no (unknown) (unknown) MCH 30.4 (units (unkno wn) date) unknown) (unknown) (no (unknown) (unknown) MCH (units (unkno wn) date) unknown) (unknown) (no (unknown) (unknown) MCHC 33.0 (units (unkn own) date) unknown) (unknown) (no (unknown) (unknown) MCHC (units (unkno wn) date) unknown) (unknown) (no (unknown) (unknown) MCV 92.4 (units (unkno wn) date) unknown) (unknown) (no (unknown) (unknown) MCV (units (unkno wn) date) unknown) (unknown) (no (unknown) (unknown) Magnesium 2.6 H (units (unknown) date) unknown) (unknown) (no (unknown) (unknown) Magnesium (units (unkn own) date) unknown) (unknown) (no (unknown) (unknown) Medical History (units (unknown) date) (Updated 06/17/22 unknown) @ 00:55 by CASEY Crystal) (unknown) (no (unknown) (unknown) Medication (units (unk nown) date) Instructions unknown) Recorded Confirmed Type (unknown) (no (unknown) (unknown) Meds (units (unkno wn) date) unknown) (unknown) (no (unknown) (unknown) [place] # (Auto) 900 (units (unknown) date) unknown) (unknown) (no (unknown) (unknown) [place] # (Auto) (units ( unknown) date) unknown) (unknown) (no (unknown) (unknown) [place] % (Auto) 9.4 (units (unknown) date) unknown) (unknown) (no (unknown) (unknown) [place] % (Auto) (units ( unknown) date) unknown) (unknown) (no (unknown) (unknown) Mother (units (unknown) date) No problems noted. unknown) (unknown) (no (unknown) (unknown) Musculoskeletal: (units (unknown) date) Diffuse but equal unknown) throughout all extremity muscle wasting, no (unknown) (no (unknown) (unknown) NT-Pro-B (units (unkno wn) date) Natriuret Pep 1430 unknown) H (unknown) (no (unknown) (unknown) NT-Pro-B (units (unkno wn) date) Natriuret Pep unknown) (unknown) (no (unknown) (unknown) Narrative (units (unkn own) date) unknown) (unknown) (no (unknown) (unknown) Narrative: (units (unk nown) date) unknown) (unknown) (no (unknown) (unknown) Negative for JVD (units (unknown) date) unknown) (unknown) (no (unknown) (unknown) Neuro: Alert and (units (unknown) date) orientated x2 unknown) Person + Place , moves all extremities, (unknown) (no (unknown) (unknown) Neut # (Auto) (units ( unknown) date) 8200 H unknown) (unknown) (no (unknown) (unknown) Neut # (Auto) (units ( unknown) date) unknown) (unknown) (no (unknown) (unknown) Neut % (Auto) (units ( unknown) date) 85.1 H unknown) (unknown) (no (unknown) (unknown) Neut % (Auto) (units ( unknown) date) unknown) (unknown) (no (unknown) (unknown) Objective (units (unkn own) date) unknown) (unknown) (no (unknown) (unknown) Oxygen Delivery (units (unknown) date) Method Room Air unknown) (unknown) (no (unknown) (unknown) Oxygen Delivery (units (unknown) date) Method unknown) (unknown) (no (unknown) (unknown) PT 17.6 H (units (unkn own) date) unknown) (unknown) (no (unknown) (unknown) PT (units (unkno wn) date) unknown) (unknown) (no (unknown) (unknown) Pacemaker (units (unkn own) date) unknown) (unknown) (no (unknown) (unknown) Patient History (units (unknown) date) unknown) (unknown) (no (unknown) (unknown) Patient: (units (unkno wn) date) Yoseph Cardoso unknown) MR#: [id number] (unknown) (no (unknown) (unknown) Phosphorus 4.1 H (units (unknown) date) unknown) (unknown) (no (unknown) (unknown) Phosphorus (units (unk nown) date) unknown) (unknown) (no (unknown) (unknown) Plt Count 222 (units ( unknown) date) unknown) (unknown) (no (unknown) (unknown) Plt Count (units (unkn own) date) unknown) (unknown) (no (unknown) (unknown) Potassium 4.8 (units ( unknown) date) unknown) (unknown) (no (unknown) (unknown) Potassium (units (unkn own) date) unknown) (unknown) (no (unknown) (unknown) Procalcitonin (units ( unknown) date) 3.27 H unknown) (unknown) (no (unknown) (unknown) Procalcitonin (units ( unknown) date) unknown) (unknown) (no (unknown) (unknown) Provider: (units (unkn own) date) Hawa Michael unknown) 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 (unknown) (no (unknown) (unknown) Psych: Patient (units (unknown) date) has a well-kept unknown) appearance, pleasant affect, mental status (unknown) (no (unknown) (unknown) Pulse Oximetry 93 (units (unknown) date) 100 unknown) (unknown) (no (unknown) (unknown) Pulse Oximetry 94 (units (unknown) date) 96 unknown) (unknown) (no (unknown) (unknown) Pulse Oximetry 95 (units (unknown) date) unknown) (unknown) (no (unknown) (unknown) Pulse Oximetry 96 (units (unknown) date) 91 unknown) (unknown) (no (unknown) (unknown) Pulse Oximetry 96 (units (unknown) date) 99 unknown) (unknown) (no (unknown) (unknown) Pulse Oximetry 96 (units (unknown) date) unknown) (unknown) (no (unknown) (unknown) Pulse Oximetry 97 (units (unknown) date) 96 97 unknown) (unknown) (no (unknown) (unknown) Pulse Oximetry 97 (units (unknown) date) 97 98 unknown) (unknown) (no (unknown) (unknown) Pulse Oximetry 97 (units (unknown) date) 97 unknown) (unknown) (no (unknown) (unknown) Pulse Oximetry 97 (units (unknown) date) unknown) (unknown) (no (unknown) (unknown) Pulse Oximetry 98 (units (unknown) date) 97 unknown) (unknown) (no (unknown) (unknown) Pulse Oximetry 98 (units (unknown) date) unknown) (unknown) (no (unknown) (unknown) Pulse Oximetry (units (unknown) date) unknown) (unknown) (no (unknown) (unknown) Pulse Rate 111 H (units (unknown) date) unknown) (unknown) (no (unknown) (unknown) Pulse Rate 114 H (units (unknown) date) 118 H unknown) (unknown) (no (unknown) (unknown) Pulse Rate 154 H (units (unknown) date) unknown) (unknown) (no (unknown) (unknown) Pulse Rate 72 66 (units (unknown) date) unknown) (unknown) (no (unknown) (unknown) Pulse Rate 72 71 (units (unknown) date) unknown) (unknown) (no (unknown) (unknown) Pulse Rate 72 74 (units (unknown) date) unknown) (unknown) (no (unknown) (unknown) Pulse Rate 72 (units ( unknown) date) unknown) (unknown) (no (unknown) (unknown) Pulse Rate 73 74 (units (unknown) date) unknown) (unknown) (no (unknown) (unknown) Pulse Rate 73 87 (units (unknown) date) 98 H unknown) (unknown) (no (unknown) (unknown) Pulse Rate 73 (units ( unknown) date) unknown) (unknown) (no (unknown) (unknown) Pulse Rate 74 104 (units (unknown) date) H 106 H unknown) (unknown) (no (unknown) (unknown) Pulse Rate 75 116 (units (unknown) date) H unknown) (unknown) (no (unknown) (unknown) Pulse Rate 75 70 (units (unknown) date) unknown) (unknown) (no (unknown) (unknown) Pulse Rate 75 74 (units (unknown) date) 74 unknown) (unknown) (no (unknown) (unknown) Pulse Rate 75 (units ( unknown) date) unknown) (unknown) (no (unknown) (unknown) Pulse Rate 76 (units ( unknown) date) unknown) (unknown) (no (unknown) (unknown) Pulse Rate 78 75 (units (unknown) date) unknown) (unknown) (no (unknown) (unknown) Pulse Rate 84 77 (units (unknown) date) unknown) (unknown) (no (unknown) (unknown) Pulse Rate 86 72 (units (unknown) date) unknown) (unknown) (no (unknown) (unknown) Pulse Rate 98 H (units (unknown) date) unknown) (unknown) (no (unknown) (unknown) RBC 5.05 (units (unkno wn) date) unknown) (unknown) (no (unknown) (unknown) RBC (units (unkno wn) date) unknown) (unknown) (no (unknown) (unknown) RDW 14.4 (units (unkno wn) date) unknown) (unknown) (no (unknown) (unknown) RDW (units (unkno wn) date) unknown) (unknown) (no (unknown) (unknown) RSV (PCR) (units (unkn own) date) Negative unknown) (unknown) (no (unknown) (unknown) RSV (PCR) (units (unkn own) date) unknown) (unknown) (no (unknown) (unknown) Respiratory Rate (units (unknown) date) 12 25 H unknown) (unknown) (no (unknown) (unknown) Respiratory Rate (units (unknown) date) 13 26 H unknown) (unknown) (no (unknown) (unknown) Respiratory Rate (units (unknown) date) 16 20 unknown) (unknown) (no (unknown) (unknown) Respiratory Rate (units (unknown) date) 17 26 H unknown) (unknown) (no (unknown) (unknown) Respiratory Rate (units (unknown) date) 17 unknown) (unknown) (no (unknown) (unknown) Respiratory Rate (units (unknown) date) 18 32 H unknown) (unknown) (no (unknown) (unknown) Respiratory Rate (units (unknown) date) 18 unknown) (unknown) (no (unknown) (unknown) Respiratory Rate (units (unknown) date) 19 18 unknown) (unknown) (no (unknown) (unknown) Respiratory Rate (units (unknown) date) 19 34 H 39 H unknown) (unknown) (no (unknown) (unknown) Respiratory Rate (units (unknown) date) 19 unknown) (unknown) (no (unknown) (unknown) Respiratory Rate (units (unknown) date) 20 unknown) (unknown) (no (unknown) (unknown) Respiratory Rate (units (unknown) date) 22 20 unknown) (unknown) (no (unknown) (unknown) Respiratory Rate (units (unknown) date) 23 17 16 unknown) (unknown) (no (unknown) (unknown) Respiratory Rate (units (unknown) date) 23 18 unknown) (unknown) (no (unknown) (unknown) Respiratory Rate (units (unknown) date) 24 19 unknown) (unknown) (no (unknown) (unknown) Respiratory Rate (units (unknown) date) 24 23 unknown) (unknown) (no (unknown) (unknown) Respiratory Rate (units (unknown) date) 27 H unknown) (unknown) (no (unknown) (unknown) Respiratory Rate (units (unknown) date) 29 H unknown) (unknown) (no (unknown) (unknown) Respiratory Rate (units (unknown) date) 30 H 24 unknown) (unknown) (no (unknown) (unknown) Respiratory Rate (units (unknown) date) unknown) (unknown) (no (unknown) (unknown) Review of Systems (units (unknown) date) unknown) (unknown) (no (unknown) (unknown) SARS-CoV-2 (PCR) (units (unknown) date) Negative unknown) (unknown) (no (unknown) (unknown) SARS-CoV-2 (PCR) (units (unknown) date) unknown) (unknown) (no (unknown) (unknown) Safety + (units (unkno wn) date) Behavioral: unknown) (unknown) (no (unknown) (unknown) Signed By: (units (unk nown) date) unknown) (unknown) (no (unknown) (unknown) Skin: Warm Very (units (unknown) date) dry, poor turgor, unknown) appears significantly dehydrated and wasting (unknown) (no (unknown) (unknown) Smoking Status (units (unknown) date) never unknown) (unknown) (no (unknown) (unknown) Sodium 135 L (units (u nknown) date) unknown) (unknown) (no (unknown) (unknown) Sodium (units (unkno wn) date) unknown) (unknown) (no (unknown) (unknown) Substance Use (units ( unknown) date) Type does not use unknown) (unknown) (no (unknown) (unknown) Surgical History (units (unknown) date) (Updated 06/16/22 unknown) @ 21:27 by Hawa Michael [facility]) (unknown) (no (unknown) (unknown) Temperature 98.1 (units (unknown) date) F unknown) (unknown) (no (unknown) (unknown) Temperature (units (un known) date) unknown) (unknown) (no (unknown) (unknown) Time Patient (units (u nknown) date) Seen: 15:35 unknown) (unknown) (no (unknown) (unknown) Time Spent With (units (unknown) date) Patient unknown) (unknown) (no (unknown) (unknown) Tobacco + (units (unkn own) date) Substance use: unknown) (unknown) (no (unknown) (unknown) Total Bilirubin (units (unknown) date) 2.1 H unknown) (unknown) (no (unknown) (unknown) Total Bilirubin (units (unknown) date) unknown) (unknown) (no (unknown) (unknown) Total Creatine (units (unknown) date) Kinase 53 L unknown) (unknown) (no (unknown) (unknown) Total Creatine (units (unknown) date) Kinase unknown) (unknown) (no (unknown) (unknown) Total Protein 5.8 (units (unknown) date) L unknown) (unknown) (no (unknown) (unknown) Total Protein (units ( unknown) date) unknown) (unknown) (no (unknown) (unknown) Troponin I < (units (u nknown) date) 0.012 unknown) (unknown) (no (unknown) (unknown) Troponin I (units (unk nown) date) unknown) (unknown) (no (unknown) (unknown) Upon admit BP (units (u nknown) date) 149/78, unknown) tachycardic heart rate 154, tachypneic R 29, O2 saturation (unknown) (no (unknown) (unknown) Ur Bilirubin (units (u nknown) date) Confirm Positive H unknown) (unknown) (no (unknown) (unknown) Ur Bilirubin (units (u nknown) date) Confirm unknown) (unknown) (no (unknown) (unknown) Ur Culture (units (unk nown) date) Indicated? unknown) Specimen cultured (unknown) (no (unknown) (unknown) Ur Culture (units (unk nown) date) Indicated? unknown) (unknown) (no (unknown) (unknown) Ur Leukocyte (units (u nknown) date) Esterase Trace H unknown) (unknown) (no (unknown) (unknown) Ur Leukocyte (units (u nknown) date) Esterase unknown) (unknown) (no (unknown) (unknown) Ur Specific (units (un known) date) [place] 1.020 unknown) (unknown) (no (unknown) (unknown) Ur Specific (units (un known) date) [place] unknown) (unknown) (no (unknown) (unknown) Ur Squamous Epith (units (unknown) date) Cells 1-5 /hpf unknown) (unknown) (no (unknown) (unknown) Ur Squamous Epith (units (unknown) date) Cells unknown) (unknown) (no (unknown) (unknown) Urine Appearance (units (unknown) date) Cloudy unknown) (unknown) (no (unknown) (unknown) Urine Appearance (units (unknown) date) unknown) (unknown) (no (unknown) (unknown) Urine Bacteria (units (unknown) date) None seen unknown) (unknown) (no (unknown) (unknown) Urine Bacteria (units (unknown) date) unknown) (unknown) (no (unknown) (unknown) Urine Bilirubin (units (unknown) date) 3+ H unknown) (unknown) (no (unknown) (unknown) Urine Bilirubin (units (unknown) date) unknown) (unknown) (no (unknown) (unknown) Urine Color Brown (units (unknown) date) unknown) (unknown) (no (unknown) (unknown) Urine Color (units (un known) date) unknown) (unknown) (no (unknown) (unknown) Urine Glucose (units ( unknown) date) (UA) Negative unknown) (unknown) (no (unknown) (unknown) Urine Glucose (units ( unknown) date) (UA) unknown) (unknown) (no (unknown) (unknown) Urine Ketones 1+ (units (unknown) date) H unknown) (unknown) (no (unknown) (unknown) Urine Ketones (units ( unknown) date) unknown) (unknown) (no (unknown) (unknown) Urine Nitrate (units ( unknown) date) Positive H unknown) (unknown) (no (unknown) (unknown) Urine Nitrate (units ( unknown) date) unknown) (unknown) (no (unknown) (unknown) Urine Occult (units (u nknown) date) Blood Trace-intact unknown) (unknown) (no (unknown) (unknown) Urine Occult (units (u nknown) date) Blood unknown) (unknown) (no (unknown) (unknown) Urine Protein 1+ (units (unknown) date) H unknown) (unknown) (no (unknown) (unknown) Urine Protein (units ( unknown) date) unknown) (unknown) (no (unknown) (unknown) Urine RBC (units (unkn own) date) 10-30/hpf H unknown) (unknown) (no (unknown) (unknown) Urine RBC (units (unkn own) date) unknown) (unknown) (no (unknown) (unknown) Urine (units (unkno wn) date) Urobilinogen 1.0 unknown) (unknown) (no (unknown) (unknown) Urine (units (unkno wn) date) Urobilinogen unknown) (unknown) (no (unknown) (unknown) Urine WBC 1-5/hpf (units (unknown) date) unknown) (unknown) (no (unknown) (unknown) Urine WBC (units (unkn own) date) unknown) (unknown) (no (unknown) (unknown) Urine pH 6.5 (units (u nknown) date) unknown) (unknown) (no (unknown) (unknown) Urine pH (units (unkno wn) date) unknown) (unknown) (no (unknown) (unknown) Vital Signs (units (un known) date) unknown) (unknown) (no (unknown) (unknown) WBC 9.6 (units (unkno wn) date) unknown) (unknown) (no (unknown) (unknown) WBC (units (unkno wn) date) unknown) (unknown) (no (unknown) (unknown) [Embedded Image (units (unknown) date) Not Available] unknown) (unknown) (no (unknown) (unknown) [From Prevnar] (units (unknown) date) and feet x unknown) (unknown) (no (unknown) (unknown) a recent 30 lb (units (unknown) date) weight loss, and unknown) night sweats with a shuffling gait x6 weeks. He (unknown) (no (unknown) (unknown) after. (units (unkno wn) date) unknown) (unknown) (no (unknown) (unknown) albumin 3.1, CK (units (unknown) date) 53, initial unknown) troponin negative, BNP 1430. EKG atrial sensed (unknown) (no (unknown) (unknown) alcohol intake (units (unknown) date) frequency a few unknown) times a month (unknown) (no (unknown) (unknown) amlodipine 5 mg (units (unknown) date) tablet 5 mg PO unknown) DAILY 06/16/22 06/16/22 History (unknown) (no (unknown) (unknown) and intact (units (unk nown) date) without rashes, unknown) ulcerations or petechiae. (unknown) (no (unknown) (unknown) and place, but a (units (unknown) date) very poor unknown) historian, stated that 'he came in today by himself (unknown) (no (unknown) (unknown) apixaban 5 mg (units ( unknown) date) tablet (Eliquis) 5 unknown) mg PO BID blood thinner 06/16/22 06/16/22 (unknown) (no (unknown) (unknown) appears is no (units ( unknown) date) distress at this unknown) time, no apparent jaundice, right upper quadrant (unknown) (no (unknown) (unknown) are present in (units (unknown) date) all 4 quadrants unknown) without guarding or rebound, no CVA tenderness. (unknown) (no (unknown) (unknown) attitude thought (units (unknown) date) context and unknown) judgment are inappropriate- confused, poor (unknown) (no (unknown) (unknown) because he had (units (unknown) date) black urine this unknown) morning'. He did not recall seeing Dr. Gillette, (unknown) (no (unknown) (unknown) bruit, no cardiac (units (unknown) date) pulsations unknown) present. (unknown) (no (unknown) (unknown) cardiology's (units (u nknown) date) office due to unknown) deteriorating health concerns. patient admitted for (unknown) (no (unknown) (unknown) cardiology's (units (u nknown) date) office due to his unknown) significant presentation of cachexia, weakness, (unknown) (no (unknown) (unknown) clear and mucous (units (unknown) date) membranes are dry. unknown) Neck is supple and symmetric, trachea is (unknown) (no (unknown) (unknown) conjugate to of (units (unknown) date) hands unknown) (unknown) (no (unknown) (unknown) demonstrated (units (u nknown) date) bibasilar unknown) infiltrates versus inflammatory pulmonary opacities mild (unknown) (no (unknown) (unknown) differential also (units (unknown) date) includes unknown) neoplastic processes as well as infectious (unknown) (no (unknown) (unknown) difficulty, (units (un known) date) struggles slightly unknown) with given directions. Patient has no WBC, but (unknown) (no (unknown) (unknown) distress at this (units (unknown) date) time. unknown) (unknown) (no (unknown) (unknown) etiologies such (units (unknown) date) as micro abscesses unknown) (unknown) (no (unknown) (unknown) fluticasone (units (un known) date) propionate 44 44 unknown) mcg inhalation DAILY 06/16/22 06/16/22 History (unknown) (no (unknown) (unknown) for mild sepsis, (units (unknown) date) transaminitis, unknown) UTI, encephalopathy. (unknown) (no (unknown) (unknown) gabapentin 300 mg (units (unknown) date) capsule 300 mg PO unknown) BID 06/16/22 06/16/22 History (unknown) (no (unknown) (unknown) historian. (units (unk nown) date) unknown) (unknown) (no (unknown) (unknown) left shiftneut (units (unknown) date) 8200, initial unknown) lactate 4.3, repeat 2.7, procalcitonin 3.27, PT (unknown) (no (unknown) (unknown) liver, as well as (units (unknown) date) multifocal unknown) hepatocellular carcinoma or infection. Numerous (unknown) (no (unknown) (unknown) malaise, balance (units (unknown) date) coordination unknown) issues, and concerns for neoplastic syndrome with (unknown) (no (unknown) (unknown) markers. (units (unkno wn) date) unknown) (unknown) (no (unknown) (unknown) mcg/actuation HFA (units (unknown) date) aerosol inhaler unknown) (unknown) (no (unknown) (unknown) medication (units (unk nown) date) reconciliation unknown) accurately. (unknown) (no (unknown) (unknown) midline, no (units (un known) date) adenopathy, no unknown) thyroid enlargement, nontender, no masses palpated. (unknown) (no (unknown) (unknown) mild sepsis, (units (u nknown) date) transaminitis, unknown) UTI, encephalopathy. (unknown) (no (unknown) (unknown) negative. 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 Patient denies any pain, and (unknown) (no (unknown) (unknown) obvious (units (unkno wn) date) deformity, unknown) crepitus, effusions, cyanosis, clubbing or edema present. (unknown) (no (unknown) (unknown) on room air. (units (u nknown) date) unknown) (unknown) (no (unknown) (unknown) opacities mild to (units (unknown) date) moderate right unknown) greater than left pulmonary effusion. (unknown) (no (unknown) (unknown) or labored (units (unk nown) date) breathing, mildly unknown) tachypneic. 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 Gillette (unknown) (no (unknown) (unknown) pain, or fever. (units (unknown) date) unknown) (unknown) (no (unknown) (unknown) pneumococcal (units (u nknown) date) 7-valent AdvReac unknown) Intermediate swelling Verified 06/16/22 12:46 (unknown) (no (unknown) (unknown) present on (units (unk nown) date) admission unknown) (unknown) (no (unknown) (unknown) residual>500cc (units (unknown) date) place [facility]ice unknown) (unknown) (no (unknown) (unknown) sensation to (units (u nknown) date) touch intact, no unknown) gross deficits noted of cranial nerves. (unknown) (no (unknown) (unknown) shuffling gait x6 (units (unknown) date) weeks. unknown) (unknown) (no (unknown) (unknown) small (units (unkno wn) date) hypoattenuating unknown) lesions throughout the spleen are also nonspecific and the (unknown) (no (unknown) (unknown) tachycardia with (units (unknown) date) heart rates unknown) 111-154, and tachypneic respiratory rate in the (unknown) (no (unknown) (unknown) to moderate right (units (unknown) date) greater than left unknown) pulmonary effusion. SOFA:2 patient admitted (unknown) (no (unknown) (unknown) to moderate right (units (unknown) date) greater than left unknown) pulmonary effusion. patient admitted for (unknown) (no (unknown) (unknown) today; this time (units (unknown) date) is exclusive of unknown) procedural time. (unknown) (no (unknown) (unknown) unsure if this is (units (unknown) date) the patient's unknown) baseline. Due to cognitive impairment unable to (unknown) (no (unknown) (unknown) ventricular paced (units (unknown) date) rhythm rate 72, unknown) abnormal. COVID, influenza a/B/RSV negative. (unknown) (no (unknown) (unknown) was brought into (units (unknown) date) the ED by his unknown) . In ED patient demonstrated escalating (unknown) (no (unknown) (unknown) wheezes, rhonchi, (units (unknown) date) or rales. unknown) Result panel 222 (unknown) (no (unknown) (unknown) (no value) (units (unk nown) date) unknown) (unknown) (no (unknown) (unknown) (Flovent HFA) (units ( unknown) date) unknown) (unknown) (no (unknown) (unknown) (past 8 hours): (units (unknown) date) unknown) (unknown) (no (unknown) (unknown) - CXR ?Possible (units (unknown) date) mild right and unknown) retrocardiac opacities (unknown) (no (unknown) (unknown) -ABD/Pelvis (units (unk nown) date) CT:?Multiple unknown) ill-defined hypoattenuating mass lesions throughout the (unknown) (no (unknown) (unknown) -BLD/Urine (units (unk nown) date) culture pending unknown) (unknown) (no (unknown) (unknown) -Chest CT (units (unkn own) date) demonstrated unknown) bibasilar infiltrates versus inflammatory pulmonary (unknown) (no (unknown) (unknown) -[id number]@84 cc/HR (units (unknown) date) unknown) (unknown) (no (unknown) (unknown) -ED:heart rates (units (unknown) date) 111-154, and unknown) tachypneic respiratory rate in the 20s. (1L bolus) (unknown) (no (unknown) (unknown) -EKG atrial (units (un known) date) sensed ventricular unknown) paced rhythm rate 72, abnormal. (unknown) (no (unknown) (unknown) -GGT 516 -Ordered (units (unknown) date) RT upper Quad U/S unknown) tomorrow -will order MRCP if bile ducts are (unknown) (no (unknown) (unknown) -Monitor (units (unkno wn) date) electrolytes unknown) (unknown) (no (unknown) (unknown) -Monitor for (units (u nknown) date) neurological unknown) changes, toxic metabolic encephalopathy (unknown) (no (unknown) (unknown) -[id number] checks (units (unknown) date) while NPO Only unknown) (unknown) (no (unknown) (unknown) -Negative Fever, (units (unknown) date) jaundice, right unknown) upper quadrant pain (unknown) (no (unknown) (unknown) -Ordered: CRP, (units (unknown) date) ESR, AFP, EPO, unknown) hepatitis panel-trend LFT's, and inflammatory (unknown) (no (unknown) (unknown) -R Factor: 0.4 (units (unknown) date) cholestatic unknown) injury- Ordered ABD/P CT (unknown) (no (unknown) (unknown) -SOFA:2 (units (unkno wn) date) unknown) (unknown) (no (unknown) (unknown) -Sodium 135, BUN (units (unknown) date) 34, glucose 146, unknown) calcium 8.1, magnesium 2.6, phosphorus 4.1, (unknown) (no (unknown) (unknown) -Suspect (units (unkno wn) date) dehydration-patien unknown) t appears severely volume depleted (unknown) (no (unknown) (unknown) -WBC neg, neut# (units (unknown) date) 8200, initial unknown) lactate 4.3, repeat 2.7, procalcitonin 3.27, (unknown) (no (unknown) (unknown) -admit BP 149/78, (units (unknown) date) tachycardic heart unknown) rate 154, tachypneic R 29, O2 saturation 98% (unknown) (no (unknown) (unknown) -bladder scans as (units (unknown) date) needed, postvoid unknown) residual >500cc -straight cath, 2nd postvoid (unknown) (no (unknown) (unknown) -cachexia, (units (unk nown) date) weakness, malaise unknown) balance coordination issues, and concerns for (unknown) (no (unknown) (unknown) -continue Eliquis (units (unknown) date) unknown) (unknown) (no (unknown) (unknown) -continue (units (unkn own) date) amlodipine-was unknown) unable to contact patient's , we will need to (unknown) (no (unknown) (unknown) -dietary consult (units (unknown) date) ordered to unknown) evaluate and implement steps to improve caloric (unknown) (no (unknown) (unknown) -initial troponin (units (unknown) date) negative (trend unknown) x3), BNP 1430-patient has no edema and appear (unknown) (no (unknown) (unknown) -initiated Zosyn (units (unknown) date) unknown) (unknown) (no (unknown) (unknown) -last echo in our (units (unknown) date) records to of 2019 unknown) EF 55-60% (unknown) (no (unknown) (unknown) -monitor for (units (u nknown) date) septic shock unknown) (unknown) (no (unknown) (unknown) -monitor for (units (u nknown) date) starvation ketosis unknown) (unknown) (no (unknown) (unknown) -ordered 1L bolus (units (unknown) date) followed by unknown) [id number]@84 cc/HR (unknown) (no (unknown) (unknown) -pain and (units (unkn own) date) antiemetic unknown) management (unknown) (no (unknown) (unknown) -patient's (units (unk nown) date) malnutrition unknown) places them at high risk for medical and surgical (unknown) (no (unknown) (unknown) -phosphorus 4.1, (units (unknown) date) bili 2.1, AST 61, unknown) ALT 63, alk-phos 428, total protein 5.8,PT (unknown) (no (unknown) (unknown) -placed general (units (unknown) date) surgery consult unknown) Dr. Turner (unknown) (no (unknown) (unknown) -positive nitrate (units (unknown) date) urinalysis culture unknown) pending, transaminitis (unknown) (no (unknown) (unknown) -urinalysis (units (un known) date) brown, positive unknown) for protein, ketones, nitrites, bili 3+, leuks, RBC (unknown) (no (unknown) (unknown) [id number] (units (unkno wn) date) unknown) (unknown) (no (unknown) (unknown) 06/16/22 06/16/22 (units (unknown) date) 06/16/22 unknown) (unknown) (no (unknown) (unknown) 06/16/22 06/16/22 (units (unknown) date) unknown) (unknown) (no (unknown) (unknown) 06/16/22 12:35 (units (unknown) date) unknown) (unknown) (no (unknown) (unknown) 06/16/22 (units (unkno wn) date) unknown) (unknown) (no (unknown) (unknown) 1. Sepsis without (units (unknown) date) septic shock, unknown) likely hepatobiliary origin, and UTI, acute, (unknown) (no (unknown) (unknown) 1030- Culture (units (unknown) date) pending unknown) (unknown) (no (unknown) (unknown) 12:35 12:35 12:35 (units (unknown) date) unknown) (unknown) (no (unknown) (unknown) 13:15 06/16/22 (units (unknown) date) unknown) (unknown) (no (unknown) (unknown) 13:30 (units (unkno wn) date) unknown) (unknown) (no (unknown) (unknown) 13:45 06/16/22 (units (unknown) date) unknown) (unknown) (no (unknown) (unknown) 13:46 06/16/22 (units (unknown) date) unknown) (unknown) (no (unknown) (unknown) 13:46 (units (unkno wn) date) unknown) (unknown) (no (unknown) (unknown) 14:00 06/16/22 (units (unknown) date) unknown) (unknown) (no (unknown) (unknown) 14:24 (units (unkno wn) date) unknown) (unknown) (no (unknown) (unknown) 14:30 06/16/22 (units (unknown) date) unknown) (unknown) (no (unknown) (unknown) 14:45 06/16/22 (units (unknown) date) unknown) (unknown) (no (unknown) (unknown) 15:00 (units (unkno wn) date) unknown) (unknown) (no (unknown) (unknown) 15:15 06/16/22 (units (unknown) date) unknown) (unknown) (no (unknown) (unknown) 15:30 06/16/22 (units (unknown) date) unknown) (unknown) (no (unknown) (unknown) 15:30 17:55 (units (un known) date) unknown) (unknown) (no (unknown) (unknown) 15:34 06/16/22 (units (unknown) date) unknown) (unknown) (no (unknown) (unknown) 15:34 (units (unkno wn) date) unknown) (unknown) (no (unknown) (unknown) 15:45 06/16/22 (units (unknown) date) unknown) (unknown) (no (unknown) (unknown) 15:45 (units (unkno wn) date) unknown) (unknown) (no (unknown) (unknown) 16:00 06/16/22 (units (unknown) date) unknown) (unknown) (no (unknown) (unknown) 16:15 06/16/22 (units (unknown) date) unknown) (unknown) (no (unknown) (unknown) 16:15 (units (unkno wn) date) unknown) (unknown) (no (unknown) (unknown) 16:30 06/16/22 (units (unknown) date) unknown) (unknown) (no (unknown) (unknown) 16:31 06/16/22 (units (unknown) date) unknown) (unknown) (no (unknown) (unknown) 16:31 (units (unkno wn) date) unknown) (unknown) (no (unknown) (unknown) 16:45 06/16/22 (units (unknown) date) unknown) (unknown) (no (unknown) (unknown) 17.6, INR 1.5, (units (unknown) date) PTT 38 unknown) (unknown) (no (unknown) (unknown) 17.6, INR 1.5, (units (unknown) date) PTT 38. Sodium unknown) 135, BUN 34, glucose 146, calcium 8.1, magnesium (unknown) (no (unknown) (unknown) 17:00 06/16/22 (units (unknown) date) unknown) (unknown) (no (unknown) (unknown) 17:00 (units (unkno wn) date) unknown) (unknown) (no (unknown) (unknown) 17:15 06/16/22 (units (unknown) date) unknown) (unknown) (no (unknown) (unknown) 17:15 (units (unkno wn) date) unknown) (unknown) (no (unknown) (unknown) 17:30 06/16/22 (units (unknown) date) unknown) (unknown) (no (unknown) (unknown) 17:45 (units (unkno wn) date) unknown) (unknown) (no (unknown) (unknown) 17:46 06/16/22 (units (unknown) date) unknown) (unknown) (no (unknown) (unknown) 17:59 (units (unkno wn) date) unknown) (unknown) (no (unknown) (unknown) 18:00 06/16/22 (units (unknown) date) unknown) (unknown) (no (unknown) (unknown) 18:01 06/16/22 (units (unknown) date) unknown) (unknown) (no (unknown) (unknown) 18:15 06/16/22 (units (unknown) date) unknown) (unknown) (no (unknown) (unknown) 18:15 (units (unkno wn) date) unknown) (unknown) (no (unknown) (unknown) 18:30 06/16/22 (units (unknown) date) unknown) (unknown) (no (unknown) (unknown) 18:30 (units (unkno wn) date) unknown) (unknown) (no (unknown) (unknown) 18:45 06/16/22 (units (unknown) date) unknown) (unknown) (no (unknown) (unknown) 19:00 06/16/22 (units (unknown) date) unknown) (unknown) (no (unknown) (unknown) 19:00 (units (unkno wn) date) unknown) (unknown) (no (unknown) (unknown) 19:15 06/16/22 (units (unknown) date) unknown) (unknown) (no (unknown) (unknown) 19:15 (units (unkno wn) date) unknown) (unknown) (no (unknown) (unknown) 19:30 06/16/22 (units (unknown) date) unknown) (unknown) (no (unknown) (unknown) 19:45 06/16/22 (units (unknown) date) unknown) (unknown) (no (unknown) (unknown) 19:45 (units (unkno wn) date) unknown) (unknown) (no (unknown) (unknown) 2. Transaminitis, (units (unknown) date) with elevated unknown) alkaline phosphate, acute, present on admission (unknown) (no (unknown) (unknown) 2.6, phosphorus (units (unknown) date) 4.1, bili 2.1, AST unknown) 61, ALT 63, alk-phos 428, total protein 5.8, (unknown) (no (unknown) (unknown) 20:00 06/16/22 (units (unknown) date) unknown) (unknown) (no (unknown) (unknown) 20:00 (units (unkno wn) date) unknown) (unknown) (no (unknown) (unknown) 20:15 06/16/22 (units (unknown) date) unknown) (unknown) (no (unknown) (unknown) 20:30 06/16/22 (units (unknown) date) unknown) (unknown) (no (unknown) (unknown) 20:30 (units (unkno wn) date) unknown) (unknown) (no (unknown) (unknown) 20:45 06/16/22 (units (unknown) date) unknown) (unknown) (no (unknown) (unknown) 20:46 06/16/22 (units (unknown) date) unknown) (unknown) (no (unknown) (unknown) 20:46 (units (unkno wn) date) unknown) (unknown) (no (unknown) (unknown) 20:55 (units (unkno wn) date) unknown) (unknown) (no (unknown) (unknown) 20s. During admit (units (unknown) date) interview patient unknown) is pleasantly confused orientated to self (unknown) (no (unknown) (unknown) 3. UTI, acute, (units (unknown) date) present on unknown) admission (unknown) (no (unknown) (unknown) 4 mos (units (unkno wn) date) unknown) (unknown) (no (unknown) (unknown) 4. (units (unkno wn) date) Encephalopathy/cog unknown) nitive impairment, unclear if this is chronic or acute, (unknown) (no (unknown) (unknown) 4.3, repeat 2.7, (units (unknown) date) procalcitonin unknown) 3.27, . bili 2.1, AST 61, ALT 63, alk-phos (unknown) (no (unknown) (unknown) 428, total (units (unk nown) date) protein 5.8, unknown) albumin 3.1, CK 53, . . Head CT negative. CXR (unknown) (no (unknown) (unknown) 5. Essential (units (u nknown) date) hypertension, unknown) chronic, present on admission (unknown) (no (unknown) (unknown) 6. Atrial (units (unkn own) date) fibrillation, with unknown) pacemaker, on chronic Eliquis, acute on chronic, (unknown) (no (unknown) (unknown) 7. Malnutrition, (units (unknown) date) mild, moderate, unknown) severe, acute on chronic, present on admission (unknown) (no (unknown) (unknown) 98% on room air. (units (unknown) date) Patient did get up unknown) and ambulate to the restroom w/MA without (unknown) (no (unknown) (unknown) 98% on room air. (units (unknown) date) Patient has no unknown) WBC, but left shiftneut 8200, initial lactate (unknown) (no (unknown) (unknown) ?Possible mild (units (unknown) date) right and unknown) retrocardiac opacities Chest CT demonstrated bibasilar (unknown) (no (unknown) (unknown) A1C 5.8% (units (unkno wn) date) unknown) (unknown) (no (unknown) (unknown) ALT 63 H (units (unkno wn) date) unknown) (unknown) (no (unknown) (unknown) ALT (units (unkno wn) date) unknown) (unknown) (no (unknown) (unknown) APTT 38 H (units (unkn own) date) unknown) (unknown) (no (unknown) (unknown) APTT (units (unkno wn) date) unknown) (unknown) (no (unknown) (unknown) AST 61 H (units (unkno wn) date) unknown) (unknown) (no (unknown) (unknown) AST (units (unkno wn) date) unknown) (unknown) (no (unknown) (unknown) Abdomen: Soft (units ( unknown) date) nontender, unknown) negative for organomegaly, or masses. Bowel sounds (unknown) (no (unknown) (unknown) Age/Sex: 86 / M (units (unknown) date) unknown) (unknown) (no (unknown) (unknown) Albumin 3.1 L (units ( unknown) date) unknown) (unknown) (no (unknown) (unknown) Albumin (units (unkno wn) date) unknown) (unknown) (no (unknown) (unknown) Albumin/Globulin (units (unknown) date) Ratio 1.1 unknown) (unknown) (no (unknown) (unknown) Albumin/Globulin (units (unknown) date) Ratio unknown) (unknown) (no (unknown) (unknown) Alkaline (units (unkno wn) date) Phosphatase 428 H unknown) (unknown) (no (unknown) (unknown) Alkaline (units (unkno wn) date) Phosphatase unknown) (unknown) (no (unknown) (unknown) Allergies (units (unkn own) date) unknown) (unknown) (no (unknown) (unknown) Allergy/AdvReac (units (unknown) date) Type Severity unknown) Reaction Status Date / Time (unknown) (no (unknown) (unknown) Assessment + Plan (units (unknown) date) narrative: unknown) (unknown) (no (unknown) (unknown) Assessment + Plan (units (unknown) date) unknown) (unknown) (no (unknown) (unknown) Asthma (units (unkno wn) date) unknown) (unknown) (no (unknown) (unknown) Atrial (units (unkno wn) date) fibrillation unknown) (unknown) (no (unknown) (unknown) BUN 34 H (units (unkno wn) date) unknown) (unknown) (no (unknown) (unknown) BUN (units (unkno wn) date) unknown) (unknown) (no (unknown) (unknown) BUN/Creatinine (units (unknown) date) Ratio 34.3 H unknown) (unknown) (no (unknown) (unknown) BUN/Creatinine (units (unknown) date) Ratio unknown) (unknown) (no (unknown) (unknown) Baso # (Auto) 100 (units (unknown) date) unknown) (unknown) (no (unknown) (unknown) Baso # (Auto) (units ( unknown) date) unknown) (unknown) (no (unknown) (unknown) Baso % (Auto) 0.8 (units (unknown) date) unknown) (unknown) (no (unknown) (unknown) Baso % (Auto) (units ( unknown) date) unknown) (unknown) (no (unknown) (unknown) Blood Pressure (units (unknown) date) 141/57 H unknown) (unknown) (no (unknown) (unknown) Blood Pressure (units (unknown) date) 141/73 H unknown) (unknown) (no (unknown) (unknown) Blood Pressure (units (unknown) date) 142/65 H 156/70 H unknown) (unknown) (no (unknown) (unknown) Blood Pressure (units (unknown) date) 142/67 H unknown) (unknown) (no (unknown) (unknown) Blood Pressure (units (unknown) date) 143/67 H unknown) (unknown) (no (unknown) (unknown) Blood Pressure (units (unknown) date) 145/69 H unknown) (unknown) (no (unknown) (unknown) Blood Pressure (units (unknown) date) 146/69 H unknown) (unknown) (no (unknown) (unknown) Blood Pressure (units (unknown) date) 147/71 H 150/72 H unknown) (unknown) (no (unknown) (unknown) Blood Pressure (units (unknown) date) 149/68 H 130/59 L unknown) (unknown) (no (unknown) (unknown) Blood Pressure (units (unknown) date) 149/78 H 155/70 H unknown) (unknown) (no (unknown) (unknown) Blood Pressure (units (unknown) date) 150/73 H unknown) (unknown) (no (unknown) (unknown) Blood Pressure (units (unknown) date) 151/72 H unknown) (unknown) (no (unknown) (unknown) Blood Pressure (units (unknown) date) 154/73 H unknown) (unknown) (no (unknown) (unknown) Blood Pressure (units (unknown) date) 156/72 H 151/72 H unknown) (unknown) (no (unknown) (unknown) Blood Pressure (units (unknown) date) 162/114 H unknown) (unknown) (no (unknown) (unknown) Blood Pressure (units (unknown) date) 164/94 H 164/96 H unknown) (unknown) (no (unknown) (unknown) Blood Pressure (units (unknown) date) 179/74 H 179/94 H unknown) (unknown) (no (unknown) (unknown) Blood Pressure (units (unknown) date) 186/112 H 169/75 H unknown) (unknown) (no (unknown) (unknown) Blood Pressure (units (unknown) date) unknown) (unknown) (no (unknown) (unknown) CK-MB (CK-2) Rel (units (unknown) date) Index TNP unknown) (unknown) (no (unknown) (unknown) CK-MB (CK-2) Rel (units (unknown) date) Index unknown) (unknown) (no (unknown) (unknown) CK-MB (CK-2) TNP (units (unknown) date) unknown) (unknown) (no (unknown) (unknown) CK-MB (CK-2) (units (u nknown) date) unknown) (unknown) (no (unknown) (unknown) COVID, influenza (units (unknown) date) a/B/RSV negative unknown) (unknown) (no (unknown) (unknown) Calcium 8.1 L (units ( unknown) date) unknown) (unknown) (no (unknown) (unknown) Calcium (units (unkno wn) date) unknown) (unknown) (no (unknown) (unknown) Carbon Dioxide 28 (units (unknown) date) unknown) (unknown) (no (unknown) (unknown) Carbon Dioxide (units (unknown) date) unknown) (unknown) (no (unknown) (unknown) Cardio: regular (units (unknown) date) rate and rhythm unknown) without murmur, rubs, or gallops, no carotid (unknown) (no (unknown) (unknown) Chest: Equal (units (u nknown) date) expansion, unknown) positive kyphoscoliosis, no nasal flaring, retractions, (unknown) (no (unknown) (unknown) Chief complaint: (units (unknown) date) Pain near unknown) pacemaker (unknown) (no (unknown) (unknown) Chloride 99 (units (un known) date) unknown) (unknown) (no (unknown) (unknown) Chloride (units (unkno wn) date) unknown) (unknown) (no (unknown) (unknown) Chronic (units (unkno wn) date) anticoagulation unknown) (unknown) (no (unknown) (unknown) Creatinine 0.99 (units (unknown) date) unknown) (unknown) (no (unknown) (unknown) Creatinine (units (unk nown) date) unknown) (unknown) (no (unknown) (unknown) Critical Care (units ( unknown) date) time: unknown) (unknown) (no (unknown) (unknown) : 1935 (units (unknown) date) Acct:[id number] unknown) (unknown) (no (unknown) (unknown) Date Patient (units (u nknown) date) Seen: 06/16/22 unknown) (unknown) (no (unknown) (unknown) Date of Service: (units (unknown) date) 06/16/22 unknown) (unknown) (no (unknown) (unknown) Yoseph Cardoso is (units (unknown) date) a 86-year-old male unknown) with a history of atrial fibrillation, with (unknown) (no (unknown) (unknown) Due to patient's (units (unknown) date) cognitive unknown) impairment/encepha lopathy unable to obtain HPI, ROS, (unknown) (no (unknown) (unknown) Environment (units (un known) date) unknown) (unknown) (no (unknown) (unknown) Eos # (Auto) 0 (units (unknown) date) unknown) (unknown) (no (unknown) (unknown) Eos # (Auto) (units (u nknown) date) unknown) (unknown) (no (unknown) (unknown) Eos % (Auto) 0.1 (units (unknown) date) L unknown) (unknown) (no (unknown) (unknown) Eos % (Auto) (units (u nknown) date) unknown) (unknown) (no (unknown) (unknown) Essential (units (unkn own) date) hypertension unknown) (unknown) (no (unknown) (unknown) Estimated GFR > (units (unknown) date) 60 unknown) (unknown) (no (unknown) (unknown) Estimated GFR (units ( unknown) date) unknown) (unknown) (no (unknown) (unknown) Exam Narrative: (units (unknown) date) unknown) (unknown) (no (unknown) (unknown) Exam (units (unkno wn) date) unknown) (unknown) (no (unknown) (unknown) Family + Social (units (unknown) date) History unknown) (unknown) (no (unknown) (unknown) Family History (units (unknown) date) (Reviewed 06/17/22 unknown) @ 00:47 by JOSE Crystal) (unknown) (no (unknown) (unknown) Father (units (unknown) date) Diabetes mellitus unknown) (unknown) (no (unknown) (unknown) Feels Safe in (units ( unknown) date) Current Yes, unknown) patient lives at home with his . (unknown) (no (unknown) (unknown) Full range of (units ( unknown) date) motion intact unknown) radial and pedal pulses are normal. (unknown) (no (unknown) (unknown) General: Patient (units (unknown) date) is a pleasantly unknown) confused cachectic, frail, elderly male, in no (unknown) (no (unknown) (unknown) Globulin 2.7 (units (u nknown) date) unknown) (unknown) (no (unknown) (unknown) Globulin (units (unkno wn) date) unknown) (unknown) (no (unknown) (unknown) Glucose 146 H (units ( unknown) date) unknown) (unknown) (no (unknown) (unknown) Glucose (units (unkno wn) date) unknown) (unknown) (no (unknown) (unknown) HEENT: (units (unkno wn) date) Normocephalic, unknown) atraumatic, extraocular muscles intact, oral pharynx is (unknown) (no (unknown) (unknown) Hct 46.6 (units (unkno wn) date) unknown) (unknown) (no (unknown) (unknown) Hct (units (unkno wn) date) unknown) (unknown) (no (unknown) (unknown) Head CT negative. 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 (unknown) (no (unknown) (unknown) History (units (unkno wn) date) unknown) (unknown) (no (unknown) (unknown) Home Medications (units (unknown) date) and Allergies unknown) (unknown) (no (unknown) (unknown) Home Medications (units (unknown) date) unknown) (unknown) (no (unknown) (unknown) I spent a total (units (unknown) date) of [] minutes of unknown) critical care time on this patient's care (unknown) (no (unknown) (unknown) INR 1.5 H (units (unkn own) date) unknown) (unknown) (no (unknown) (unknown) INR (units (unkno wn) date) unknown) (unknown) (no (unknown) (unknown) Influenza A (units (un known) date) (RT-PCR) Flu a unknown) negative (unknown) (no (unknown) (unknown) Influenza A (units (un known) date) (RT-PCR) unknown) (unknown) (no (unknown) (unknown) Influenza B (units (un known) date) (RT-PCR) Flu b unknown) negative (unknown) (no (unknown) (unknown) Influenza B (units (un known) date) (RT-PCR) unknown) (unknown) (no (unknown) (unknown) [facility] (units (unknown) date) [address] unknown) [place] [address] (unknown) (no (unknown) (unknown) Laboratory (units (unk nown) date) Results - last 24 unknown) hr (unknown) (no (unknown) (unknown) Labs (units (unkno wn) date) unknown) (unknown) (no (unknown) (unknown) Labs: (units (unkno wn) date) unknown) (unknown) (no (unknown) (unknown) Lactate 2.7 H (units ( unknown) date) unknown) (unknown) (no (unknown) (unknown) Lactate 4.3 H* (units (unknown) date) unknown) (unknown) (no (unknown) (unknown) Lactate (units (unkno wn) date) unknown) (unknown) (no (unknown) (unknown) Lipase 45 (units (unkn own) date) unknown) (unknown) (no (unknown) (unknown) Lipase (units (unkno wn) date) unknown) (unknown) (no (unknown) (unknown) Lungs: (units (unkno wn) date) Auscultation of unknown) all lung troy are clear without adventitious sounds, (unknown) (no (unknown) (unknown) Lymph # (Auto) (units (unknown) date) 400 L unknown) (unknown) (no (unknown) (unknown) Lymph # (Auto) (units (unknown) date) unknown) (unknown) (no (unknown) (unknown) Lymph % (Auto) (units (unknown) date) 4.6 L unknown) (unknown) (no (unknown) (unknown) Lymph % (Auto) (units (unknown) date) unknown) (unknown) (no (unknown) (unknown) MCH 30.4 (units (unkno wn) date) unknown) (unknown) (no (unknown) (unknown) MCH (units (unkno wn) date) unknown) (unknown) (no (unknown) (unknown) MCHC 33.0 (units (unkn own) date) unknown) (unknown) (no (unknown) (unknown) MCHC (units (unkno wn) date) unknown) (unknown) (no (unknown) (unknown) MCV 92.4 (units (unkno wn) date) unknown) (unknown) (no (unknown) (unknown) MCV (units (unkno wn) date) unknown) (unknown) (no (unknown) (unknown) Magnesium 2.6 H (units (unknown) date) unknown) (unknown) (no (unknown) (unknown) Magnesium (units (unkn own) date) unknown) (unknown) (no (unknown) (unknown) Medical History (units (unknown) date) (Updated 06/17/22 unknown) @ 00:55 by JOSE Crystal) (unknown) (no (unknown) (unknown) Medication (units (unk nown) date) Instructions unknown) Recorded Confirmed Type (unknown) (no (unknown) (unknown) Meds (units (unkno wn) date) unknown) (unknown) (no (unknown) (unknown) [place] # (Auto) 900 (units (unknown) date) unknown) (unknown) (no (unknown) (unknown) [place] # (Auto) (units ( unknown) date) unknown) (unknown) (no (unknown) (unknown) [place] % (Auto) 9.4 (units (unknown) date) unknown) (unknown) (no (unknown) (unknown) [place] % (Auto) (units ( unknown) date) unknown) (unknown) (no (unknown) (unknown) Mother (units (unknown) date) No problems noted. unknown) (unknown) (no (unknown) (unknown) Musculoskeletal: (units (unknown) date) Diffuse but equal unknown) throughout all extremity muscle wasting, no (unknown) (no (unknown) (unknown) NT-Pro-B (units (unkno wn) date) Natriuret Pep 1430 unknown) H (unknown) (no (unknown) (unknown) NT-Pro-B (units (unkno wn) date) Natriuret Pep unknown) (unknown) (no (unknown) (unknown) Narrative (units (unkn own) date) unknown) (unknown) (no (unknown) (unknown) Narrative: (units (unk nown) date) unknown) (unknown) (no (unknown) (unknown) Negative for JVD (units (unknown) date) unknown) (unknown) (no (unknown) (unknown) Neuro: Alert and (units (unknown) date) orientated x2 unknown) Person + Place , moves all extremities, (unknown) (no (unknown) (unknown) Neut # (Auto) (units ( unknown) date) 8200 H unknown) (unknown) (no (unknown) (unknown) Neut # (Auto) (units ( unknown) date) unknown) (unknown) (no (unknown) (unknown) Neut % (Auto) (units ( unknown) date) 85.1 H unknown) (unknown) (no (unknown) (unknown) Neut % (Auto) (units ( unknown) date) unknown) (unknown) (no (unknown) (unknown) Objective (units (unkn own) date) unknown) (unknown) (no (unknown) (unknown) Oxygen Delivery (units (unknown) date) Method Room Air unknown) (unknown) (no (unknown) (unknown) Oxygen Delivery (units (unknown) date) Method unknown) (unknown) (no (unknown) (unknown) PT 17.6 H (units (unkn own) date) unknown) (unknown) (no (unknown) (unknown) PT (units (unkno wn) date) unknown) (unknown) (no (unknown) (unknown) Pacemaker (units (unkn own) date) unknown) (unknown) (no (unknown) (unknown) Patient History (units (unknown) date) unknown) (unknown) (no (unknown) (unknown) Patient: (units (unkno wn) date) Yoseph Cardoso unknown) MR#: [id number] (unknown) (no (unknown) (unknown) Phosphorus 4.1 H (units (unknown) date) unknown) (unknown) (no (unknown) (unknown) Phosphorus (units (unk nown) date) unknown) (unknown) (no (unknown) (unknown) Plt Count 222 (units ( unknown) date) unknown) (unknown) (no (unknown) (unknown) Plt Count (units (unkn own) date) unknown) (unknown) (no (unknown) (unknown) Potassium 4.8 (units ( unknown) date) unknown) (unknown) (no (unknown) (unknown) Potassium (units (unkn own) date) unknown) (unknown) (no (unknown) (unknown) Procalcitonin (units ( unknown) date) 3.27 H unknown) (unknown) (no (unknown) (unknown) Procalcitonin (units ( unknown) date) unknown) (unknown) (no (unknown) (unknown) Provider: (units (unkn own) date) Hawa Michael unknown) 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 (unknown) (no (unknown) (unknown) Psych: Patient (units (unknown) date) has a well-kept unknown) appearance, pleasant affect, mental status (unknown) (no (unknown) (unknown) Pulse Oximetry 93 (units (unknown) date) 100 unknown) (unknown) (no (unknown) (unknown) Pulse Oximetry 94 (units (unknown) date) 96 unknown) (unknown) (no (unknown) (unknown) Pulse Oximetry 95 (units (unknown) date) unknown) (unknown) (no (unknown) (unknown) Pulse Oximetry 96 (units (unknown) date) 91 unknown) (unknown) (no (unknown) (unknown) Pulse Oximetry 96 (units (unknown) date) 99 unknown) (unknown) (no (unknown) (unknown) Pulse Oximetry 96 (units (unknown) date) unknown) (unknown) (no (unknown) (unknown) Pulse Oximetry 97 (units (unknown) date) 96 97 unknown) (unknown) (no (unknown) (unknown) Pulse Oximetry 97 (units (unknown) date) 97 98 unknown) (unknown) (no (unknown) (unknown) Pulse Oximetry 97 (units (unknown) date) 97 unknown) (unknown) (no (unknown) (unknown) Pulse Oximetry 97 (units (unknown) date) unknown) (unknown) (no (unknown) (unknown) Pulse Oximetry 98 (units (unknown) date) 97 unknown) (unknown) (no (unknown) (unknown) Pulse Oximetry 98 (units (unknown) date) unknown) (unknown) (no (unknown) (unknown) Pulse Oximetry (units (unknown) date) unknown) (unknown) (no (unknown) (unknown) Pulse Rate 111 H (units (unknown) date) unknown) (unknown) (no (unknown) (unknown) Pulse Rate 114 H (units (unknown) date) 118 H unknown) (unknown) (no (unknown) (unknown) Pulse Rate 154 H (units (unknown) date) unknown) (unknown) (no (unknown) (unknown) Pulse Rate 72 66 (units (unknown) date) unknown) (unknown) (no (unknown) (unknown) Pulse Rate 72 71 (units (unknown) date) unknown) (unknown) (no (unknown) (unknown) Pulse Rate 72 74 (units (unknown) date) unknown) (unknown) (no (unknown) (unknown) Pulse Rate 72 (units ( unknown) date) unknown) (unknown) (no (unknown) (unknown) Pulse Rate 73 74 (units (unknown) date) unknown) (unknown) (no (unknown) (unknown) Pulse Rate 73 87 (units (unknown) date) 98 H unknown) (unknown) (no (unknown) (unknown) Pulse Rate 73 (units ( unknown) date) unknown) (unknown) (no (unknown) (unknown) Pulse Rate 74 104 (units (unknown) date) H 106 H unknown) (unknown) (no (unknown) (unknown) Pulse Rate 75 116 (units (unknown) date) H unknown) (unknown) (no (unknown) (unknown) Pulse Rate 75 70 (units (unknown) date) unknown) (unknown) (no (unknown) (unknown) Pulse Rate 75 74 (units (unknown) date) 74 unknown) (unknown) (no (unknown) (unknown) Pulse Rate 75 (units ( unknown) date) unknown) (unknown) (no (unknown) (unknown) Pulse Rate 76 (units ( unknown) date) unknown) (unknown) (no (unknown) (unknown) Pulse Rate 78 75 (units (unknown) date) unknown) (unknown) (no (unknown) (unknown) Pulse Rate 84 77 (units (unknown) date) unknown) (unknown) (no (unknown) (unknown) Pulse Rate 86 72 (units (unknown) date) unknown) (unknown) (no (unknown) (unknown) Pulse Rate 98 H (units (unknown) date) unknown) (unknown) (no (unknown) (unknown) RBC 5.05 (units (unkno wn) date) unknown) (unknown) (no (unknown) (unknown) RBC (units (unkno wn) date) unknown) (unknown) (no (unknown) (unknown) RDW 14.4 (units (unkno wn) date) unknown) (unknown) (no (unknown) (unknown) RDW (units (unkno wn) date) unknown) (unknown) (no (unknown) (unknown) RSV (PCR) (units (unkn own) date) Negative unknown) (unknown) (no (unknown) (unknown) RSV (PCR) (units (unkn own) date) unknown) (unknown) (no (unknown) (unknown) Respiratory Rate (units (unknown) date) 12 25 H unknown) (unknown) (no (unknown) (unknown) Respiratory Rate (units (unknown) date) 13 26 H unknown) (unknown) (no (unknown) (unknown) Respiratory Rate (units (unknown) date) 16 20 unknown) (unknown) (no (unknown) (unknown) Respiratory Rate (units (unknown) date) 17 26 H unknown) (unknown) (no (unknown) (unknown) Respiratory Rate (units (unknown) date) 17 unknown) (unknown) (no (unknown) (unknown) Respiratory Rate (units (unknown) date) 18 32 H unknown) (unknown) (no (unknown) (unknown) Respiratory Rate (units (unknown) date) 18 unknown) (unknown) (no (unknown) (unknown) Respiratory Rate (units (unknown) date) 19 18 unknown) (unknown) (no (unknown) (unknown) Respiratory Rate (units (unknown) date) 19 34 H 39 H unknown) (unknown) (no (unknown) (unknown) Respiratory Rate (units (unknown) date) 19 unknown) (unknown) (no (unknown) (unknown) Respiratory Rate (units (unknown) date) 20 unknown) (unknown) (no (unknown) (unknown) Respiratory Rate (units (unknown) date) 22 20 unknown) (unknown) (no (unknown) (unknown) Respiratory Rate (units (unknown) date) 23 17 16 unknown) (unknown) (no (unknown) (unknown) Respiratory Rate (units (unknown) date) 23 18 unknown) (unknown) (no (unknown) (unknown) Respiratory Rate (units (unknown) date) 24 19 unknown) (unknown) (no (unknown) (unknown) Respiratory Rate (units (unknown) date) 24 23 unknown) (unknown) (no (unknown) (unknown) Respiratory Rate (units (unknown) date) 27 H unknown) (unknown) (no (unknown) (unknown) Respiratory Rate (units (unknown) date) 29 H unknown) (unknown) (no (unknown) (unknown) Respiratory Rate (units (unknown) date) 30 H 24 unknown) (unknown) (no (unknown) (unknown) Respiratory Rate (units (unknown) date) unknown) (unknown) (no (unknown) (unknown) Review of Systems (units (unknown) date) unknown) (unknown) (no (unknown) (unknown) SARS-CoV-2 (PCR) (units (unknown) date) Negative unknown) (unknown) (no (unknown) (unknown) SARS-CoV-2 (PCR) (units (unknown) date) unknown) (unknown) (no (unknown) (unknown) Safety + (units (unkno wn) date) Behavioral: unknown) (unknown) (no (unknown) (unknown) Signed By: (units (unk nown) date) unknown) (unknown) (no (unknown) (unknown) Skin: Warm Very (units (unknown) date) dry, poor turgor, unknown) appears significantly dehydrated and wasting (unknown) (no (unknown) (unknown) Smoking Status (units (unknown) date) never unknown) (unknown) (no (unknown) (unknown) Sodium 135 L (units (u nknown) date) unknown) (unknown) (no (unknown) (unknown) Sodium (units (unkno wn) date) unknown) (unknown) (no (unknown) (unknown) Substance Use (units ( unknown) date) Type does not use unknown) (unknown) (no (unknown) (unknown) Surgical History (units (unknown) date) (Updated 06/16/22 unknown) @ 21:27 by Hawa Michael [facility]) (unknown) (no (unknown) (unknown) Temperature 98.1 (units (unknown) date) F unknown) (unknown) (no (unknown) (unknown) Temperature (units (un known) date) unknown) (unknown) (no (unknown) (unknown) Time Patient (units (u nknown) date) Seen: 15:35 unknown) (unknown) (no (unknown) (unknown) Time Spent With (units (unknown) date) Patient unknown) (unknown) (no (unknown) (unknown) Tobacco + (units (unkn own) date) Substance use: unknown) (unknown) (no (unknown) (unknown) Total Bilirubin (units (unknown) date) 2.1 H unknown) (unknown) (no (unknown) (unknown) Total Bilirubin (units (unknown) date) unknown) (unknown) (no (unknown) (unknown) Total Creatine (units (unknown) date) Kinase 53 L unknown) (unknown) (no (unknown) (unknown) Total Creatine (units (unknown) date) Kinase unknown) (unknown) (no (unknown) (unknown) Total Protein 5.8 (units (unknown) date) L unknown) (unknown) (no (unknown) (unknown) Total Protein (units ( unknown) date) unknown) (unknown) (no (unknown) (unknown) Troponin I < (units (u nknown) date) 0.012 unknown) (unknown) (no (unknown) (unknown) Troponin I (units (unk nown) date) unknown) (unknown) (no (unknown) (unknown) Upon admit BP (units (u nknown) date) 149/78, unknown) tachycardic heart rate 154, tachypneic R 29, O2 saturation (unknown) (no (unknown) (unknown) Ur Bilirubin (units (u nknown) date) Confirm Positive H unknown) (unknown) (no (unknown) (unknown) Ur Bilirubin (units (u nknown) date) Confirm unknown) (unknown) (no (unknown) (unknown) Ur Culture (units (unk nown) date) Indicated? unknown) Specimen cultured (unknown) (no (unknown) (unknown) Ur Culture (units (unk nown) date) Indicated? unknown) (unknown) (no (unknown) (unknown) Ur Leukocyte (units (u nknown) date) Esterase Trace H unknown) (unknown) (no (unknown) (unknown) Ur Leukocyte (units (u nknown) date) Esterase unknown) (unknown) (no (unknown) (unknown) Ur Specific (units (un known) date) [place] 1.020 unknown) (unknown) (no (unknown) (unknown) Ur Specific (units (un known) date) [place] unknown) (unknown) (no (unknown) (unknown) Ur Squamous Epith (units (unknown) date) Cells 1-5 /hpf unknown) (unknown) (no (unknown) (unknown) Ur Squamous Epith (units (unknown) date) Cells unknown) (unknown) (no (unknown) (unknown) Urine Appearance (units (unknown) date) Cloudy unknown) (unknown) (no (unknown) (unknown) Urine Appearance (units (unknown) date) unknown) (unknown) (no (unknown) (unknown) Urine Bacteria (units (unknown) date) None seen unknown) (unknown) (no (unknown) (unknown) Urine Bacteria (units (unknown) date) unknown) (unknown) (no (unknown) (unknown) Urine Bilirubin (units (unknown) date) 3+ H unknown) (unknown) (no (unknown) (unknown) Urine Bilirubin (units (unknown) date) unknown) (unknown) (no (unknown) (unknown) Urine Color Brown (units (unknown) date) unknown) (unknown) (no (unknown) (unknown) Urine Color (units (un known) date) unknown) (unknown) (no (unknown) (unknown) Urine Glucose (units ( unknown) date) (UA) Negative unknown) (unknown) (no (unknown) (unknown) Urine Glucose (units ( unknown) date) (UA) unknown) (unknown) (no (unknown) (unknown) Urine Ketones 1+ (units (unknown) date) H unknown) (unknown) (no (unknown) (unknown) Urine Ketones (units ( unknown) date) unknown) (unknown) (no (unknown) (unknown) Urine Nitrate (units ( unknown) date) Positive H unknown) (unknown) (no (unknown) (unknown) Urine Nitrate (units ( unknown) date) unknown) (unknown) (no (unknown) (unknown) Urine Occult (units (u nknown) date) Blood Trace-intact unknown) (unknown) (no (unknown) (unknown) Urine Occult (units (u nknown) date) Blood unknown) (unknown) (no (unknown) (unknown) Urine Protein 1+ (units (unknown) date) H unknown) (unknown) (no (unknown) (unknown) Urine Protein (units ( unknown) date) unknown) (unknown) (no (unknown) (unknown) Urine RBC (units (unkn own) date) 10-30/hpf H unknown) (unknown) (no (unknown) (unknown) Urine RBC (units (unkn own) date) unknown) (unknown) (no (unknown) (unknown) Urine (units (unkno wn) date) Urobilinogen 1.0 unknown) (unknown) (no (unknown) (unknown) Urine (units (unkno wn) date) Urobilinogen unknown) (unknown) (no (unknown) (unknown) Urine WBC 1-5/hpf (units (unknown) date) unknown) (unknown) (no (unknown) (unknown) Urine WBC (units (unkn own) date) unknown) (unknown) (no (unknown) (unknown) Urine pH 6.5 (units (u nknown) date) unknown) (unknown) (no (unknown) (unknown) Urine pH (units (unkno wn) date) unknown) (unknown) (no (unknown) (unknown) Vital Signs (units (un known) date) unknown) (unknown) (no (unknown) (unknown) WBC 9.6 (units (unkno wn) date) unknown) (unknown) (no (unknown) (unknown) WBC (units (unkno wn) date) unknown) (unknown) (no (unknown) (unknown) [Embedded Image (units (unknown) date) Not Available] unknown) (unknown) (no (unknown) (unknown) [From Prevnar] (units (unknown) date) and feet x unknown) (unknown) (no (unknown) (unknown) a recent 30 lb (units (unknown) date) weight loss, and unknown) night sweats with a shuffling gait x6 weeks. He (unknown) (no (unknown) (unknown) after. (units (unkno wn) date) unknown) (unknown) (no (unknown) (unknown) albumin 3.1, CK (units (unknown) date) 53, initial unknown) troponin negative, BNP 1430. EKG atrial sensed (unknown) (no (unknown) (unknown) alcohol intake (units (unknown) date) frequency a few unknown) times a month (unknown) (no (unknown) (unknown) amlodipine 5 mg (units (unknown) date) tablet 5 mg PO unknown) DAILY 06/16/22 06/16/22 History (unknown) (no (unknown) (unknown) and intact (units (unk nown) date) without rashes, unknown) ulcerations or petechiae. (unknown) (no (unknown) (unknown) and place, but a (units (unknown) date) very poor unknown) historian, stated that 'he came in today by himself (unknown) (no (unknown) (unknown) apixaban 5 mg (units ( unknown) date) tablet (Eliquis) 5 unknown) mg PO BID blood thinner 06/16/22 06/16/22 (unknown) (no (unknown) (unknown) appears is no (units ( unknown) date) distress at this unknown) time, no apparent jaundice, right upper quadrant (unknown) (no (unknown) (unknown) are present in (units (unknown) date) all 4 quadrants unknown) without guarding or rebound, no CVA tenderness. (unknown) (no (unknown) (unknown) attitude thought (units (unknown) date) context and unknown) judgment are inappropriate- confused, poor (unknown) (no (unknown) (unknown) because he had (units (unknown) date) black urine this unknown) morning'. He did not recall seeing Dr. Gillette, (unknown) (no (unknown) (unknown) bruit, no cardiac (units (unknown) date) pulsations unknown) present. (unknown) (no (unknown) (unknown) cardiology's (units (u nknown) date) office due to unknown) deteriorating health concerns. patient admitted for (unknown) (no (unknown) (unknown) cardiology's (units (u nknown) date) office due to his unknown) significant presentation of cachexia, weakness, (unknown) (no (unknown) (unknown) clear and mucous (units (unknown) date) membranes are dry. unknown) Neck is supple and symmetric, trachea is (unknown) (no (unknown) (unknown) complications in (units (unknown) date) relation to acute unknown) illness/chronic illness. This increases the (unknown) (no (unknown) (unknown) conjugate to of (units (unknown) date) hands unknown) (unknown) (no (unknown) (unknown) demonstrated (units (u nknown) date) bibasilar unknown) infiltrates versus inflammatory pulmonary opacities mild (unknown) (no (unknown) (unknown) differential also (units (unknown) date) includes unknown) neoplastic processes as well as infectious (unknown) (no (unknown) (unknown) difficulty in (units ( unknown) date) complexity of unknown) medical management and increases the chances poor (unknown) (no (unknown) (unknown) difficulty, (units (un known) date) struggles slightly unknown) with given directions. Patient has no WBC, but (unknown) (no (unknown) (unknown) dilated. (units (unkno wn) date) unknown) (unknown) (no (unknown) (unknown) distress at this (units (unknown) date) time. unknown) (unknown) (no (unknown) (unknown) etiologies such (units (unknown) date) as micro abscesses unknown) (unknown) (no (unknown) (unknown) fluticasone (units (un known) date) propionate 44 44 unknown) mcg inhalation DAILY 06/16/22 06/16/22 History (unknown) (no (unknown) (unknown) for mild sepsis, (units (unknown) date) transaminitis, unknown) UTI, encephalopathy. (unknown) (no (unknown) (unknown) gabapentin 300 mg (units (unknown) date) capsule 300 mg PO unknown) BID 06/16/22 06/16/22 History (unknown) (no (unknown) (unknown) greater than left (units (unknown) date) pulmonary unknown) effusion. patient admitted for mild sepsis, (unknown) (no (unknown) (unknown) historian. (units (unk nown) date) unknown) (unknown) (no (unknown) (unknown) immune (units (unkno wn) date) suppression. unknown) (unknown) (no (unknown) (unknown) infiltrates (units (un known) date) versus unknown) inflammatory pulmonary opacities mild to moderate right (unknown) (no (unknown) (unknown) intake and (units (unk nown) date) nutrition. unknown) (unknown) (no (unknown) (unknown) left shiftneut (units (unknown) date) 8200, initial unknown) lactate 4.3, repeat 2.7, procalcitonin 3.27, PT (unknown) (no (unknown) (unknown) liver, as well as (units (unknown) date) multifocal unknown) hepatocellular carcinoma or infection. Numerous (unknown) (no (unknown) (unknown) malaise, balance (units (unknown) date) coordination unknown) issues, and concerns for neoplastic syndrome with (unknown) (no (unknown) (unknown) markers. (units (unkno wn) date) unknown) (unknown) (no (unknown) (unknown) mcg/actuation HFA (units (unknown) date) aerosol inhaler unknown) (unknown) (no (unknown) (unknown) medication (units (unk nown) date) reconciliation unknown) accurately. (unknown) (no (unknown) (unknown) midline, no (units (un known) date) adenopathy, no unknown) thyroid enlargement, nontender, no masses palpated. (unknown) (no (unknown) (unknown) mild sepsis, (units (u nknown) date) transaminitis, unknown) UTI, encephalopathy. 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 Patient denies any pain, and (unknown) (no (unknown) (unknown) obvious (units (unkno wn) date) deformity, unknown) crepitus, effusions, cyanosis, clubbing or edema present. (unknown) (no (unknown) (unknown) on room air. (units (u nknown) date) unknown) (unknown) (no (unknown) (unknown) opacities mild to (units (unknown) date) moderate right unknown) greater than left pulmonary effusion. (unknown) (no (unknown) (unknown) or labored (units (unk nown) date) breathing, mildly unknown) tachypneic. (unknown) (no (unknown) (unknown) outcomes such as (units (unknown) date) mortality and unknown) morbidity as well as impaired wound healing, and (unknown) (no (unknown) (unknown) pacemaker on (units (u nknown) date) Eliquis, HTN, and unknown) melanoma who was sent over from Dr. Gillette (unknown) (no (unknown) (unknown) pain, or fever. (units (unknown) date) unknown) (unknown) (no (unknown) (unknown) pneumococcal (units (u nknown) date) 7-valent AdvReac unknown) Intermediate swelling Verified 06/16/22 12:46 (unknown) (no (unknown) (unknown) present on (units (unk nown) date) admission unknown) (unknown) (no (unknown) (unknown) residual>500cc (units (unknown) date) place [place] unknown) (unknown) (no (unknown) (unknown) sensation to (units (u nknown) date) touch intact, no unknown) gross deficits noted of cranial nerves. (unknown) (no (unknown) (unknown) shuffling gait x6 (units (unknown) date) weeks. unknown) (unknown) (no (unknown) (unknown) significantly (units ( unknown) date) hypovolemic. unknown) (unknown) (no (unknown) (unknown) small (units (unkno wn) date) hypoattenuating unknown) lesions throughout the spleen are also nonspecific and the (unknown) (no (unknown) (unknown) tachycardia with (units (unknown) date) heart rates unknown) 111-154, and tachypneic respiratory rate in the (unknown) (no (unknown) (unknown) to moderate right (units (unknown) date) greater than left unknown) pulmonary effusion. SOFA:2 patient admitted (unknown) (no (unknown) (unknown) today; this time (units (unknown) date) is exclusive of unknown) procedural time. (unknown) (no (unknown) (unknown) transaminitis, (units (unknown) date) UTI, unknown) encephalopathy. (unknown) (no (unknown) (unknown) unsure if this is (units (unknown) date) the patient's unknown) baseline. Due to cognitive impairment unable to (unknown) (no (unknown) (unknown) ventricular paced (units (unknown) date) rhythm rate 72, unknown) abnormal. COVID, influenza a/B/RSV negative. (unknown) (no (unknown) (unknown) verify (units (unkno wn) date) medications in the unknown) morning (unknown) (no (unknown) (unknown) was brought into (units (unknown) date) the ED by his unknown) . In ED patient demonstrated escalating (unknown) (no (unknown) (unknown) wheezes, rhonchi, (units (unknown) date) or rales. unknown) Result panel 223 (unknown) (no (unknown) (unknown) (no value) (units (unk nown) date) unknown) (unknown) (no (unknown) (unknown) (Flovent HFA) (units ( unknown) date) unknown) (unknown) (no (unknown) (unknown) (past 8 hours): (units (unknown) date) unknown) (unknown) (no (unknown) (unknown) - CXR ?Possible (units (unknown) date) mild right and unknown) retrocardiac opacities (unknown) (no (unknown) (unknown) -ABD/Pelvis (units (unk nown) date) CT:?Multiple unknown) ill-defined hypoattenuating mass lesions throughout the (unknown) (no (unknown) (unknown) -BLD/Urine (units (unk nown) date) culture pending unknown) (unknown) (no (unknown) (unknown) -Chest CT (units (unkn own) date) demonstrated unknown) bibasilar infiltrates versus inflammatory pulmonary (unknown) (no (unknown) (unknown) -[id number] cc/HR (units (unknown) date) unknown) (unknown) (no (unknown) (unknown) -ED:heart rates (units (unknown) date) 111-154, and unknown) tachypneic respiratory rate in the 20s. (1L bolus) (unknown) (no (unknown) (unknown) -EKG atrial (units (un known) date) sensed ventricular unknown) paced rhythm rate 72, abnormal. (unknown) (no (unknown) (unknown) -GGT 516 -Ordered (units (unknown) date) RT upper Quad U/S unknown) tomorrow -will order MRCP if bile ducts are (unknown) (no (unknown) (unknown) -Monitor (units (unkno wn) date) electrolytes unknown) (unknown) (no (unknown) (unknown) -Monitor for (units (u nknown) date) neurological unknown) changes, toxic metabolic encephalopathy (unknown) (no (unknown) (unknown) -[id number] checks (units (unknown) date) while NPO Only unknown) (unknown) (no (unknown) (unknown) -Negative Fever, (units (unknown) date) jaundice, right unknown) upper quadrant pain (unknown) (no (unknown) (unknown) -Ordered: CRP, (units (unknown) date) ESR, AFP, EPO, unknown) hepatitis panel-trend LFT's, and inflammatory (unknown) (no (unknown) (unknown) -R Factor: 0.4 (units (unknown) date) cholestatic unknown) injury- Ordered ABD/P CT (unknown) (no (unknown) (unknown) -SOFA:2 (units (unkno wn) date) unknown) (unknown) (no (unknown) (unknown) -Sodium 135, BUN (units (unknown) date) 34, glucose 146, unknown) calcium 8.1, magnesium 2.6, phosphorus 4.1, (unknown) (no (unknown) (unknown) -Suspect (units (unkno wn) date) dehydration-patien unknown) t appears severely volume depleted (unknown) (no (unknown) (unknown) -WBC neg, neut# (units (unknown) date) 8200, initial unknown) lactate 4.3, repeat 2.7, procalcitonin 3.27, (unknown) (no (unknown) (unknown) -admit BP 149/78, (units (unknown) date) tachycardic heart unknown) rate 154, tachypneic R 29, O2 saturation 98% (unknown) (no (unknown) (unknown) -as evidence by (units (unknown) date) BMI 22.2-no unknown) records for comparison. (unknown) (no (unknown) (unknown) -bladder scans as (units (unknown) date) needed, postvoid unknown) residual >500cc -straight cath, 2nd postvoid (unknown) (no (unknown) (unknown) -cachexia, (units (unk nown) date) weakness, malaise unknown) balance coordination issues, and concerns for (unknown) (no (unknown) (unknown) -continue Eliquis (units (unknown) date) unknown) (unknown) (no (unknown) (unknown) -continue (units (unkn own) date) amlodipine-was unknown) unable to contact patient's , we will need to (unknown) (no (unknown) (unknown) -dietary consult (units (unknown) date) ordered to unknown) evaluate and implement steps to improve caloric (unknown) (no (unknown) (unknown) -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 (unknown) (no (unknown) (unknown) -initial troponin (units (unknown) date) negative (trend unknown) x3), BNP 1430-patient has no edema and appear (unknown) (no (unknown) (unknown) -initiated Zosyn (units (unknown) date) unknown) (unknown) (no (unknown) (unknown) -last echo in our (units (unknown) date) records to of 2019 unknown) EF 55-60% (unknown) (no (unknown) (unknown) -monitor for (units (u nknown) date) septic shock unknown) (unknown) (no (unknown) (unknown) -monitor for (units (u nknown) date) starvation ketosis unknown) (unknown) (no (unknown) (unknown) -ordered 1L bolus (units (unknown) date) followed by unknown) [id number] cc/HR (unknown) (no (unknown) (unknown) -pain and (units (unkn own) date) antiemetic unknown) management (unknown) (no (unknown) (unknown) -patient's (units (unk nown) date) malnutrition unknown) places them at high risk for medical and surgical (unknown) (no (unknown) (unknown) -phosphorus 4.1, (units (unknown) date) bili 2.1, AST 61, unknown) ALT 63, alk-phos 428, total protein 5.8,PT (unknown) (no (unknown) (unknown) -placed general (units (unknown) date) surgery consult unknown) Dr. Turner (unknown) (no (unknown) (unknown) -positive nitrate (units (unknown) date) urinalysis culture unknown) pending, transaminitis (unknown) (no (unknown) (unknown) -strict fall (units (u nknown) date) precautions, bed unknown) alarm, keep door open for observation (unknown) (no (unknown) (unknown) -urinalysis (units (un known) date) brown, positive unknown) for protein, ketones, nitrites, bili 3+, leuks, RBC (unknown) (no (unknown) (unknown) [id number] (units (unkno wn) date) unknown) (unknown) (no (unknown) (unknown) 06/16/22 06/16/22 (units (unknown) date) 06/16/22 unknown) (unknown) (no (unknown) (unknown) 06/16/22 06/16/22 (units (unknown) date) unknown) (unknown) (no (unknown) (unknown) 06/16/22 12:35 (units (unknown) date) unknown) (unknown) (no (unknown) (unknown) 06/16/22 (units (unkno wn) date) unknown) (unknown) (no (unknown) (unknown) 1. Sepsis without (units (unknown) date) septic shock, unknown) likely hepatobiliary origin, and UTI, acute, (unknown) (no (unknown) (unknown) 10-30- Culture (units (unknown) date) pending unknown) (unknown) (no (unknown) (unknown) 12:35 12:35 12:35 (units (unknown) date) unknown) (unknown) (no (unknown) (unknown) 13:15 06/16/22 (units (unknown) date) unknown) (unknown) (no (unknown) (unknown) 13:30 (units (unkno wn) date) unknown) (unknown) (no (unknown) (unknown) 13:45 06/16/22 (units (unknown) date) unknown) (unknown) (no (unknown) (unknown) 13:46 06/16/22 (units (unknown) date) unknown) (unknown) (no (unknown) (unknown) 13:46 (units (unkno wn) date) unknown) (unknown) (no (unknown) (unknown) 14:00 06/16/22 (units (unknown) date) unknown) (unknown) (no (unknown) (unknown) 14:24 (units (unkno wn) date) unknown) (unknown) (no (unknown) (unknown) 14:30 06/16/22 (units (unknown) date) unknown) (unknown) (no (unknown) (unknown) 14:45 06/16/22 (units (unknown) date) unknown) (unknown) (no (unknown) (unknown) 15:00 (units (unkno wn) date) unknown) (unknown) (no (unknown) (unknown) 15:15 06/16/22 (units (unknown) date) unknown) (unknown) (no (unknown) (unknown) 15:30 06/16/22 (units (unknown) date) unknown) (unknown) (no (unknown) (unknown) 15:30 17:55 (units (un known) date) unknown) (unknown) (no (unknown) (unknown) 15:34 06/16/22 (units (unknown) date) unknown) (unknown) (no (unknown) (unknown) 15:34 (units (unkno wn) date) unknown) (unknown) (no (unknown) (unknown) 15:45 06/16/22 (units (unknown) date) unknown) (unknown) (no (unknown) (unknown) 15:45 (units (unkno wn) date) unknown) (unknown) (no (unknown) (unknown) 16:00 06/16/22 (units (unknown) date) unknown) (unknown) (no (unknown) (unknown) 16:15 06/16/22 (units (unknown) date) unknown) (unknown) (no (unknown) (unknown) 16:15 (units (unkno wn) date) unknown) (unknown) (no (unknown) (unknown) 16:30 06/16/22 (units (unknown) date) unknown) (unknown) (no (unknown) (unknown) 16:31 06/16/22 (units (unknown) date) unknown) (unknown) (no (unknown) (unknown) 16:31 (units (unkno wn) date) unknown) (unknown) (no (unknown) (unknown) 16:45 06/16/22 (units (unknown) date) unknown) (unknown) (no (unknown) (unknown) 17.6, INR 1.5, (units (unknown) date) PTT 38 unknown) (unknown) (no (unknown) (unknown) 17.6, INR 1.5, (units (unknown) date) PTT 38. Sodium unknown) 135, BUN 34, glucose 146, calcium 8.1, magnesium (unknown) (no (unknown) (unknown) 17:00 06/16/22 (units (unknown) date) unknown) (unknown) (no (unknown) (unknown) 17:00 (units (unkno wn) date) unknown) (unknown) (no (unknown) (unknown) 17:15 06/16/22 (units (unknown) date) unknown) (unknown) (no (unknown) (unknown) 17:15 (units (unkno wn) date) unknown) (unknown) (no (unknown) (unknown) 17:30 06/16/22 (units (unknown) date) unknown) (unknown) (no (unknown) (unknown) 17:45 (units (unkno wn) date) unknown) (unknown) (no (unknown) (unknown) 17:46 06/16/22 (units (unknown) date) unknown) (unknown) (no (unknown) (unknown) 17:59 (units (unkno wn) date) unknown) (unknown) (no (unknown) (unknown) 18:00 06/16/22 (units (unknown) date) unknown) (unknown) (no (unknown) (unknown) 18:01 06/16/22 (units (unknown) date) unknown) (unknown) (no (unknown) (unknown) 18:15 06/16/22 (units (unknown) date) unknown) (unknown) (no (unknown) (unknown) 18:15 (units (unkno wn) date) unknown) (unknown) (no (unknown) (unknown) 18:30 06/16/22 (units (unknown) date) unknown) (unknown) (no (unknown) (unknown) 18:30 (units (unkno wn) date) unknown) (unknown) (no (unknown) (unknown) 18:45 06/16/22 (units (unknown) date) unknown) (unknown) (no (unknown) (unknown) 19:00 06/16/22 (units (unknown) date) unknown) (unknown) (no (unknown) (unknown) 19:00 (units (unkno wn) date) unknown) (unknown) (no (unknown) (unknown) 19:15 06/16/22 (units (unknown) date) unknown) (unknown) (no (unknown) (unknown) 19:15 (units (unkno wn) date) unknown) (unknown) (no (unknown) (unknown) 19:30 06/16/22 (units (unknown) date) unknown) (unknown) (no (unknown) (unknown) 19:45 06/16/22 (units (unknown) date) unknown) (unknown) (no (unknown) (unknown) 19:45 (units (unkno wn) date) unknown) (unknown) (no (unknown) (unknown) 2. Transaminitis, (units (unknown) date) with elevated unknown) alkaline phosphate, acute, present on admission (unknown) (no (unknown) (unknown) 2.6, phosphorus (units (unknown) date) 4.1, bili 2.1, AST unknown) 61, ALT 63, alk-phos 428, total protein 5.8, (unknown) (no (unknown) (unknown) 20:00 06/16/22 (units (unknown) date) unknown) (unknown) (no (unknown) (unknown) 20:00 (units (unkno wn) date) unknown) (unknown) (no (unknown) (unknown) 20:15 06/16/22 (units (unknown) date) unknown) (unknown) (no (unknown) (unknown) 20:30 06/16/22 (units (unknown) date) unknown) (unknown) (no (unknown) (unknown) 20:30 (units (unkno wn) date) unknown) (unknown) (no (unknown) (unknown) 20:45 06/16/22 (units (unknown) date) unknown) (unknown) (no (unknown) (unknown) 20:46 06/16/22 (units (unknown) date) unknown) (unknown) (no (unknown) (unknown) 20:46 (units (unkno wn) date) unknown) (unknown) (no (unknown) (unknown) 20:55 (units (unkno wn) date) unknown) (unknown) (no (unknown) (unknown) 20s. During admit (units (unknown) date) interview patient unknown) is pleasantly confused orientated to self (unknown) (no (unknown) (unknown) 3. UTI, acute, (units (unknown) date) present on unknown) admission (unknown) (no (unknown) (unknown) 4 mos (units (unkno wn) date) unknown) (unknown) (no (unknown) (unknown) 4. (units (unkno wn) date) Encephalopathy/cog unknown) nitive impairment, unclear if this is chronic or acute, (unknown) (no (unknown) (unknown) 5. Essential (units (u nknown) date) hypertension, unknown) chronic, present on admission (unknown) (no (unknown) (unknown) 6. Atrial (units (unkn own) date) fibrillation, with unknown) pacemaker, on chronic Eliquis, acute on chronic, (unknown) (no (unknown) (unknown) 7. Malnutrition, (units (unknown) date) mild, acute on unknown) chronic, present on admission (unknown) (no (unknown) (unknown) 98% on room air. (units (unknown) date) Patient did get up unknown) and ambulate to the restroom w/MA without (unknown) (no (unknown) (unknown) A1C 5.8% (units (unkno wn) date) unknown) (unknown) (no (unknown) (unknown) ALT 63 H (units (unkno wn) date) unknown) (unknown) (no (unknown) (unknown) ALT (units (unkno wn) date) unknown) (unknown) (no (unknown) (unknown) APTT 38 H (units (unkn own) date) unknown) (unknown) (no (unknown) (unknown) APTT (units (unkno wn) date) unknown) (unknown) (no (unknown) (unknown) AST 61 H (units (unkno wn) date) unknown) (unknown) (no (unknown) (unknown) AST (units (unkno wn) date) unknown) (unknown) (no (unknown) (unknown) Abdomen: Soft (units ( unknown) date) nontender, unknown) negative for organomegaly, or masses. Bowel sounds (unknown) (no (unknown) (unknown) Age/Sex: 86 / M (units (unknown) date) unknown) (unknown) (no (unknown) (unknown) Albumin 3.1 L (units ( unknown) date) unknown) (unknown) (no (unknown) (unknown) Albumin (units (unkno wn) date) unknown) (unknown) (no (unknown) (unknown) Albumin/Globulin (units (unknown) date) Ratio 1.1 unknown) (unknown) (no (unknown) (unknown) Albumin/Globulin (units (unknown) date) Ratio unknown) (unknown) (no (unknown) (unknown) Alkaline (units (unkno wn) date) Phosphatase 428 H unknown) (unknown) (no (unknown) (unknown) Alkaline (units (unkno wn) date) Phosphatase unknown) (unknown) (no (unknown) (unknown) Allergies (units (unkn own) date) unknown) (unknown) (no (unknown) (unknown) Allergy/AdvReac (units (unknown) date) Type Severity unknown) Reaction Status Date / Time (unknown) (no (unknown) (unknown) Assessment + Plan (units (unknown) date) narrative: unknown) (unknown) (no (unknown) (unknown) Assessment + Plan (units (unknown) date) unknown) (unknown) (no (unknown) (unknown) Asthma (units (unkno wn) date) unknown) (unknown) (no (unknown) (unknown) Atrial (units (unkno wn) date) fibrillation unknown) (unknown) (no (unknown) (unknown) BUN 34 H (units (unkno wn) date) unknown) (unknown) (no (unknown) (unknown) BUN (units (unkno wn) date) unknown) (unknown) (no (unknown) (unknown) BUN/Creatinine (units (unknown) date) Ratio 34.3 H unknown) (unknown) (no (unknown) (unknown) BUN/Creatinine (units (unknown) date) Ratio unknown) (unknown) (no (unknown) (unknown) Baso # (Auto) 100 (units (unknown) date) unknown) (unknown) (no (unknown) (unknown) Baso # (Auto) (units ( unknown) date) unknown) (unknown) (no (unknown) (unknown) Baso % (Auto) 0.8 (units (unknown) date) unknown) (unknown) (no (unknown) (unknown) Baso % (Auto) (units ( unknown) date) unknown) (unknown) (no (unknown) (unknown) Blood Pressure (units (unknown) date) 141/57 H unknown) (unknown) (no (unknown) (unknown) Blood Pressure (units (unknown) date) 141/73 H unknown) (unknown) (no (unknown) (unknown) Blood Pressure (units (unknown) date) 142/65 H 156/70 H unknown) (unknown) (no (unknown) (unknown) Blood Pressure (units (unknown) date) 142/67 H unknown) (unknown) (no (unknown) (unknown) Blood Pressure (units (unknown) date) 143/67 H unknown) (unknown) (no (unknown) (unknown) Blood Pressure (units (unknown) date) 145/69 H unknown) (unknown) (no (unknown) (unknown) Blood Pressure (units (unknown) date) 146/69 H unknown) (unknown) (no (unknown) (unknown) Blood Pressure (units (unknown) date) 147/71 H 150/72 H unknown) (unknown) (no (unknown) (unknown) Blood Pressure (units (unknown) date) 149/68 H 130/59 L unknown) (unknown) (no (unknown) (unknown) Blood Pressure (units (unknown) date) 149/78 H 155/70 H unknown) (unknown) (no (unknown) (unknown) Blood Pressure (units (unknown) date) 150/73 H unknown) (unknown) (no (unknown) (unknown) Blood Pressure (units (unknown) date) 151/72 H unknown) (unknown) (no (unknown) (unknown) Blood Pressure (units (unknown) date) 154/73 H unknown) (unknown) (no (unknown) (unknown) Blood Pressure (units (unknown) date) 156/72 H 151/72 H unknown) (unknown) (no (unknown) (unknown) Blood Pressure (units (unknown) date) 162/114 H unknown) (unknown) (no (unknown) (unknown) Blood Pressure (units (unknown) date) 164/94 H 164/96 H unknown) (unknown) (no (unknown) (unknown) Blood Pressure (units (unknown) date) 179/74 H 179/94 H unknown) (unknown) (no (unknown) (unknown) Blood Pressure (units (unknown) date) 186/112 H 169/75 H unknown) (unknown) (no (unknown) (unknown) Blood Pressure (units (unknown) date) unknown) (unknown) (no (unknown) (unknown) CK-MB (CK-2) Rel (units (unknown) date) Index TNP unknown) (unknown) (no (unknown) (unknown) CK-MB (CK-2) Rel (units (unknown) date) Index unknown) (unknown) (no (unknown) (unknown) CK-MB (CK-2) TNP (units (unknown) date) unknown) (unknown) (no (unknown) (unknown) CK-MB (CK-2) (units (u nknown) date) unknown) (unknown) (no (unknown) (unknown) COVID PCR: (units (unk nown) date) Negative unknown) (unknown) (no (unknown) (unknown) COVID, influenza (units (unknown) date) a/B/RSV negative unknown) (unknown) (no (unknown) (unknown) Calcium 8.1 L (units ( unknown) date) unknown) (unknown) (no (unknown) (unknown) Calcium (units (unkno wn) date) unknown) (unknown) (no (unknown) (unknown) Carbon Dioxide 28 (units (unknown) date) unknown) (unknown) (no (unknown) (unknown) Carbon Dioxide (units (unknown) date) unknown) (unknown) (no (unknown) (unknown) Cardio: regular (units (unknown) date) rate and rhythm unknown) without murmur, rubs, or gallops, no carotid (unknown) (no (unknown) (unknown) Chest: Equal (units (u nknown) date) expansion, unknown) positive kyphoscoliosis, no nasal flaring, retractions, (unknown) (no (unknown) (unknown) Chief complaint: (units (unknown) date) Pain near unknown) pacemaker (unknown) (no (unknown) (unknown) Chloride 99 (units (un known) date) unknown) (unknown) (no (unknown) (unknown) Chloride (units (unkno wn) date) unknown) (unknown) (no (unknown) (unknown) Chronic (units (unkno wn) date) anticoagulation unknown) (unknown) (no (unknown) (unknown) Code status:Full (units (unknown) date) unknown) (unknown) (no (unknown) (unknown) Creatinine 0.99 (units (unknown) date) unknown) (unknown) (no (unknown) (unknown) Creatinine (units (unk nown) date) unknown) (unknown) (no (unknown) (unknown) Critical Care (units ( unknown) date) time: unknown) (unknown) (no (unknown) (unknown) : 1935 (units (unknown) date) Acct:[id number] unknown) (unknown) (no (unknown) (unknown) DVT/VTE (units (unkno wn) date) prophylaxis: unknown) Eliquis, and SCDs (unknown) (no (unknown) (unknown) Date Patient (units (u nknown) date) Seen: 06/16/22 unknown) (unknown) (no (unknown) (unknown) Date of Service: (units (unknown) date) 06/16/22 unknown) (unknown) (no (unknown) (unknown) Disposition: (units (u nknown) date) Patient admitted unknown) to acute care for evaluation and treatment of (unknown) (no (unknown) (unknown) Yoseph Cardoso is (units (unknown) date) a 86-year-old male unknown) with a history of atrial fibrillation, with (unknown) (no (unknown) (unknown) Due to patient's (units (unknown) date) cognitive unknown) impairment/encepha lopathy unable to obtain HPI, ROS, (unknown) (no (unknown) (unknown) Environment (units (un known) date) unknown) (unknown) (no (unknown) (unknown) Eos # (Auto) 0 (units (unknown) date) unknown) (unknown) (no (unknown) (unknown) Eos # (Auto) (units (u nknown) date) unknown) (unknown) (no (unknown) (unknown) Eos % (Auto) 0.1 (units (unknown) date) L unknown) (unknown) (no (unknown) (unknown) Eos % (Auto) (units (u nknown) date) unknown) (unknown) (no (unknown) (unknown) Essential (units (unkn own) date) hypertension unknown) (unknown) (no (unknown) (unknown) Estimated GFR > (units (unknown) date) 60 unknown) (unknown) (no (unknown) (unknown) Estimated GFR (units ( unknown) date) unknown) (unknown) (no (unknown) (unknown) Exam Narrative: (units (unknown) date) unknown) (unknown) (no (unknown) (unknown) Exam (units (unkno wn) date) unknown) (unknown) (no (unknown) (unknown) Family + Social (units (unknown) date) History unknown) (unknown) (no (unknown) (unknown) Family History (units (unknown) date) (Reviewed 06/17/22 unknown) @ 00:47 by Hawa Michael [facility]) (unknown) (no (unknown) (unknown) Father (units (unknown) date) Diabetes mellitus unknown) (unknown) (no (unknown) (unknown) Feels Safe in (units ( unknown) date) Current Yes, unknown) patient lives at home with his . (unknown) (no (unknown) (unknown) Full range of (units ( unknown) date) motion intact unknown) radial and pedal pulses are normal. (unknown) (no (unknown) (unknown) General: Patient (units (unknown) date) is a pleasantly unknown) confused cachectic, frail, elderly male, in no (unknown) (no (unknown) (unknown) Globulin 2.7 (units (u nknown) date) unknown) (unknown) (no (unknown) (unknown) Globulin (units (unkno wn) date) unknown) (unknown) (no (unknown) (unknown) Glucose 146 H (units ( unknown) date) unknown) (unknown) (no (unknown) (unknown) Glucose (units (unkno wn) date) unknown) (unknown) (no (unknown) (unknown) HEENT: (units (unkno wn) date) Normocephalic, unknown) atraumatic, extraocular muscles intact, oral pharynx is (unknown) (no (unknown) (unknown) Hct 46.6 (units (unkno wn) date) unknown) (unknown) (no (unknown) (unknown) Hct (units (unkno wn) date) unknown) (unknown) (no (unknown) (unknown) Head CT negative. 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 (unknown) (no (unknown) (unknown) History (units (unkno wn) date) unknown) (unknown) (no (unknown) (unknown) Home Medications (units (unknown) date) and Allergies unknown) (unknown) (no (unknown) (unknown) Home Medications (units (unknown) date) unknown) (unknown) (no (unknown) (unknown) I confirmed that (units (unknown) date) the patient's unknown) advanced care plan is present, Code status is (unknown) (no (unknown) (unknown) I have personally (units (unknown) date) reviewed patient's unknown) chart notes from PCP, specialists, (unknown) (no (unknown) (unknown) I have utilized (units (unknown) date) all available unknown) immediate resources to obtain, update, or review (unknown) (no (unknown) (unknown) I spent a total (units (unknown) date) of [] minutes of unknown) critical care time on this patient's care (unknown) (no (unknown) (unknown) INR 1.5 H (units (unkn own) date) unknown) (unknown) (no (unknown) (unknown) INR (units (unkno wn) date) unknown) (unknown) (no (unknown) (unknown) Influenza A (units (un known) date) (RT-PCR) Flu a unknown) negative (unknown) (no (unknown) (unknown) Influenza A (units (un known) date) (RT-PCR) unknown) (unknown) (no (unknown) (unknown) Influenza B (units (un known) date) (RT-PCR) Flu b unknown) negative (unknown) (no (unknown) (unknown) Influenza B (units (un known) date) (RT-PCR) unknown) (unknown) (no (unknown) (unknown) [facility] (units (unknown) date) [address] unknown) [place] [address] (unknown) (no (unknown) (unknown) Laboratory (units (unk nown) date) Results - last 24 unknown) hr (unknown) (no (unknown) (unknown) Labs (units (unkno wn) date) unknown) (unknown) (no (unknown) (unknown) Labs: (units (unkno wn) date) unknown) (unknown) (no (unknown) (unknown) Lactate 2.7 H (units ( unknown) date) unknown) (unknown) (no (unknown) (unknown) Lactate 4.3 H* (units (unknown) date) unknown) (unknown) (no (unknown) (unknown) Lactate (units (unkno wn) date) unknown) (unknown) (no (unknown) (unknown) Lipase 45 (units (unkn own) date) unknown) (unknown) (no (unknown) (unknown) Lipase (units (unkno wn) date) unknown) (unknown) (no (unknown) (unknown) Lungs: (units (unkno wn) date) Auscultation of unknown) all lung troy are clear without adventitious sounds, (unknown) (no (unknown) (unknown) Lymph # (Auto) (units (unknown) date) 400 L unknown) (unknown) (no (unknown) (unknown) Lymph # (Auto) (units (unknown) date) unknown) (unknown) (no (unknown) (unknown) Lymph % (Auto) (units (unknown) date) 4.6 L unknown) (unknown) (no (unknown) (unknown) Lymph % (Auto) (units (unknown) date) unknown) (unknown) (no (unknown) (unknown) MCH 30.4 (units (unkno wn) date) unknown) (unknown) (no (unknown) (unknown) MCH (units (unkno wn) date) unknown) (unknown) (no (unknown) (unknown) MCHC 33.0 (units (unkn own) date) unknown) (unknown) (no (unknown) (unknown) MCHC (units (unkno wn) date) unknown) (unknown) (no (unknown) (unknown) MCV 92.4 (units (unkno wn) date) unknown) (unknown) (no (unknown) (unknown) MCV (units (unkno wn) date) unknown) (unknown) (no (unknown) (unknown) Magnesium 2.6 H (units (unknown) date) unknown) (unknown) (no (unknown) (unknown) Magnesium (units (unkn own) date) unknown) (unknown) (no (unknown) (unknown) Medical History (units (unknown) date) (Updated 06/17/22 unknown) @ 00:55 by Hawa Michael [facility]) (unknown) (no (unknown) (unknown) Medication (units (unk nown) date) Instructions unknown) Recorded Confirmed Type (unknown) (no (unknown) (unknown) Meds (units (unkno wn) date) unknown) (unknown) (no (unknown) (unknown) [place] # (Auto) 900 (units (unknown) date) unknown) (unknown) (no (unknown) (unknown) [place] # (Auto) (units ( unknown) date) unknown) (unknown) (no (unknown) (unknown) [place] % (Auto) 9.4 (units (unknown) date) unknown) (unknown) (no (unknown) (unknown) [place] % (Auto) (units ( unknown) date) unknown) (unknown) (no (unknown) (unknown) Mother (units (unknown) date) No problems noted. unknown) (unknown) (no (unknown) (unknown) Musculoskeletal: (units (unknown) date) Diffuse but equal unknown) throughout all extremity muscle wasting, no (unknown) (no (unknown) (unknown) NT-Pro-B (units (unkno wn) date) Natriuret Pep 1430 unknown) H (unknown) (no (unknown) (unknown) NT-Pro-B (units (unkno wn) date) Natriuret Pep unknown) (unknown) (no (unknown) (unknown) Narrative (units (unkn own) date) unknown) (unknown) (no (unknown) (unknown) Narrative: (units (unk nown) date) unknown) (unknown) (no (unknown) (unknown) Negative for JVD (units (unknown) date) unknown) (unknown) (no (unknown) (unknown) Neuro: Alert and (units (unknown) date) orientated x2 unknown) Person + Place , moves all extremities, (unknown) (no (unknown) (unknown) Neut # (Auto) (units ( unknown) date) 8200 H unknown) (unknown) (no (unknown) (unknown) Neut # (Auto) (units ( unknown) date) unknown) (unknown) (no (unknown) (unknown) Neut % (Auto) (units ( unknown) date) 85.1 H unknown) (unknown) (no (unknown) (unknown) Neut % (Auto) (units ( unknown) date) unknown) (unknown) (no (unknown) (unknown) Objective (units (unkn own) date) unknown) (unknown) (no (unknown) (unknown) Oxygen Delivery (units (unknown) date) Method Room Air unknown) (unknown) (no (unknown) (unknown) Oxygen Delivery (units (unknown) date) Method unknown) (unknown) (no (unknown) (unknown) PT 17.6 H (units (unkn own) date) unknown) (unknown) (no (unknown) (unknown) PT (units (unkno wn) date) unknown) (unknown) (no (unknown) (unknown) Pacemaker (units (unkn own) date) unknown) (unknown) (no (unknown) (unknown) Patient History (units (unknown) date) unknown) (unknown) (no (unknown) (unknown) Patient: (units (unkno wn) date) Yoseph Cardoso unknown) MR#: [id number] (unknown) (no (unknown) (unknown) Phosphorus 4.1 H (units (unknown) date) unknown) (unknown) (no (unknown) (unknown) Phosphorus (units (unk nown) date) unknown) (unknown) (no (unknown) (unknown) Plt Count 222 (units ( unknown) date) unknown) (unknown) (no (unknown) (unknown) Plt Count (units (unkn own) date) unknown) (unknown) (no (unknown) (unknown) Potassium 4.8 (units ( unknown) date) unknown) (unknown) (no (unknown) (unknown) Potassium (units (unkn own) date) unknown) (unknown) (no (unknown) (unknown) Procalcitonin (units ( unknown) date) 3.27 H unknown) (unknown) (no (unknown) (unknown) Procalcitonin (units ( unknown) date) unknown) (unknown) (no (unknown) (unknown) Provider: (units (unkn own) date) Hawa Michael unknown) 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 (unknown) (no (unknown) (unknown) Psych: Patient (units (unknown) date) has a well-kept unknown) appearance, pleasant affect, mental status (unknown) (no (unknown) (unknown) Pulse Oximetry 93 (units (unknown) date) 100 unknown) (unknown) (no (unknown) (unknown) Pulse Oximetry 94 (units (unknown) date) 96 unknown) (unknown) (no (unknown) (unknown) Pulse Oximetry 95 (units (unknown) date) unknown) (unknown) (no (unknown) (unknown) Pulse Oximetry 96 (units (unknown) date) 91 unknown) (unknown) (no (unknown) (unknown) Pulse Oximetry 96 (units (unknown) date) 99 unknown) (unknown) (no (unknown) (unknown) Pulse Oximetry 96 (units (unknown) date) unknown) (unknown) (no (unknown) (unknown) Pulse Oximetry 97 (units (unknown) date) 96 97 unknown) (unknown) (no (unknown) (unknown) Pulse Oximetry 97 (units (unknown) date) 97 98 unknown) (unknown) (no (unknown) (unknown) Pulse Oximetry 97 (units (unknown) date) 97 unknown) (unknown) (no (unknown) (unknown) Pulse Oximetry 97 (units (unknown) date) unknown) (unknown) (no (unknown) (unknown) Pulse Oximetry 98 (units (unknown) date) 97 unknown) (unknown) (no (unknown) (unknown) Pulse Oximetry 98 (units (unknown) date) unknown) (unknown) (no (unknown) (unknown) Pulse Oximetry (units (unknown) date) unknown) (unknown) (no (unknown) (unknown) Pulse Rate 111 H (units (unknown) date) unknown) (unknown) (no (unknown) (unknown) Pulse Rate 114 H (units (unknown) date) 118 H unknown) (unknown) (no (unknown) (unknown) Pulse Rate 154 H (units (unknown) date) unknown) (unknown) (no (unknown) (unknown) Pulse Rate 72 66 (units (unknown) date) unknown) (unknown) (no (unknown) (unknown) Pulse Rate 72 71 (units (unknown) date) unknown) (unknown) (no (unknown) (unknown) Pulse Rate 72 74 (units (unknown) date) unknown) (unknown) (no (unknown) (unknown) Pulse Rate 72 (units ( unknown) date) unknown) (unknown) (no (unknown) (unknown) Pulse Rate 73 74 (units (unknown) date) unknown) (unknown) (no (unknown) (unknown) Pulse Rate 73 87 (units (unknown) date) 98 H unknown) (unknown) (no (unknown) (unknown) Pulse Rate 73 (units ( unknown) date) unknown) (unknown) (no (unknown) (unknown) Pulse Rate 74 104 (units (unknown) date) H 106 H unknown) (unknown) (no (unknown) (unknown) Pulse Rate 75 116 (units (unknown) date) H unknown) (unknown) (no (unknown) (unknown) Pulse Rate 75 70 (units (unknown) date) unknown) (unknown) (no (unknown) (unknown) Pulse Rate 75 74 (units (unknown) date) 74 unknown) (unknown) (no (unknown) (unknown) Pulse Rate 75 (units ( unknown) date) unknown) (unknown) (no (unknown) (unknown) Pulse Rate 76 (units ( unknown) date) unknown) (unknown) (no (unknown) (unknown) Pulse Rate 78 75 (units (unknown) date) unknown) (unknown) (no (unknown) (unknown) Pulse Rate 84 77 (units (unknown) date) unknown) (unknown) (no (unknown) (unknown) Pulse Rate 86 72 (units (unknown) date) unknown) (unknown) (no (unknown) (unknown) Pulse Rate 98 H (units (unknown) date) unknown) (unknown) (no (unknown) (unknown) RBC 5.05 (units (unkno wn) date) unknown) (unknown) (no (unknown) (unknown) RBC (units (unkno wn) date) unknown) (unknown) (no (unknown) (unknown) RDW 14.4 (units (unkno wn) date) unknown) (unknown) (no (unknown) (unknown) RDW (units (unkno wn) date) unknown) (unknown) (no (unknown) (unknown) RSV (PCR) (units (unkn own) date) Negative unknown) (unknown) (no (unknown) (unknown) RSV (PCR) (units (unkn own) date) unknown) (unknown) (no (unknown) (unknown) Respiratory Rate (units (unknown) date) 12 25 H unknown) (unknown) (no (unknown) (unknown) Respiratory Rate (units (unknown) date) 13 26 H unknown) (unknown) (no (unknown) (unknown) Respiratory Rate (units (unknown) date) 16 20 unknown) (unknown) (no (unknown) (unknown) Respiratory Rate (units (unknown) date) 17 26 H unknown) (unknown) (no (unknown) (unknown) Respiratory Rate (units (unknown) date) 17 unknown) (unknown) (no (unknown) (unknown) Respiratory Rate (units (unknown) date) 18 32 H unknown) (unknown) (no (unknown) (unknown) Respiratory Rate (units (unknown) date) 18 unknown) (unknown) (no (unknown) (unknown) Respiratory Rate (units (unknown) date) 19 18 unknown) (unknown) (no (unknown) (unknown) Respiratory Rate (units (unknown) date) 19 34 H 39 H unknown) (unknown) (no (unknown) (unknown) Respiratory Rate (units (unknown) date) 19 unknown) (unknown) (no (unknown) (unknown) Respiratory Rate (units (unknown) date) 20 unknown) (unknown) (no (unknown) (unknown) Respiratory Rate (units (unknown) date) 22 20 unknown) (unknown) (no (unknown) (unknown) Respiratory Rate (units (unknown) date) 23 17 16 unknown) (unknown) (no (unknown) (unknown) Respiratory Rate (units (unknown) date) 23 18 unknown) (unknown) (no (unknown) (unknown) Respiratory Rate (units (unknown) date) 24 19 unknown) (unknown) (no (unknown) (unknown) Respiratory Rate (units (unknown) date) 24 23 unknown) (unknown) (no (unknown) (unknown) Respiratory Rate (units (unknown) date) 27 H unknown) (unknown) (no (unknown) (unknown) Respiratory Rate (units (unknown) date) 29 H unknown) (unknown) (no (unknown) (unknown) Respiratory Rate (units (unknown) date) 30 H 24 unknown) (unknown) (no (unknown) (unknown) Respiratory Rate (units (unknown) date) unknown) (unknown) (no (unknown) (unknown) Review of Systems (units (unknown) date) unknown) (unknown) (no (unknown) (unknown) SARS-CoV-2 (PCR) (units (unknown) date) Negative unknown) (unknown) (no (unknown) (unknown) SARS-CoV-2 (PCR) (units (unknown) date) unknown) (unknown) (no (unknown) (unknown) Safety + (units (unkno wn) date) Behavioral: unknown) (unknown) (no (unknown) (unknown) Signed By: (units (unk nown) date) unknown) (unknown) (no (unknown) (unknown) Skin: Warm Very (units (unknown) date) dry, poor turgor, unknown) appears significantly dehydrated and wasting (unknown) (no (unknown) (unknown) Smoking Status (units (unknown) date) never unknown) (unknown) (no (unknown) (unknown) Sodium 135 L (units (u nknown) date) unknown) (unknown) (no (unknown) (unknown) Sodium (units (unkno wn) date) unknown) (unknown) (no (unknown) (unknown) Substance Use (units ( unknown) date) Type does not use unknown) (unknown) (no (unknown) (unknown) Surgical History (units (unknown) date) (Updated 06/16/22 unknown) @ 21:27 by CASEY Crystal) (unknown) (no (unknown) (unknown) Surrogate (units (unkn own) date) decision maker: unknown) Aletha Cardoso (unknown) (no (unknown) (unknown) Temperature 98.1 (units (unknown) date) F unknown) (unknown) (no (unknown) (unknown) Temperature (units (un known) date) unknown) (unknown) (no (unknown) (unknown) This increases (units (unknown) date) the difficulty in unknown) complexity of medical management and increases (unknown) (no (unknown) (unknown) Time Patient (units (u nknown) date) Seen: 15:35 unknown) (unknown) (no (unknown) (unknown) Time Spent With (units (unknown) date) Patient unknown) (unknown) (no (unknown) (unknown) Tobacco + (units (unkn own) date) Substance use: unknown) (unknown) (no (unknown) (unknown) Total Bilirubin (units (unknown) date) 2.1 H unknown) (unknown) (no (unknown) (unknown) Total Bilirubin (units (unknown) date) unknown) (unknown) (no (unknown) (unknown) Total Creatine (units (unknown) date) Kinase 53 L unknown) (unknown) (no (unknown) (unknown) Total Creatine (units (unknown) date) Kinase unknown) (unknown) (no (unknown) (unknown) Total Protein 5.8 (units (unknown) date) L unknown) (unknown) (no (unknown) (unknown) Total Protein (units ( unknown) date) unknown) (unknown) (no (unknown) (unknown) Troponin I < (units (u nknown) date) 0.012 unknown) (unknown) (no (unknown) (unknown) Troponin I (units (unk nown) date) unknown) (unknown) (no (unknown) (unknown) Upon admit BP (units (u nknown) date) 149/78, unknown) tachycardic heart rate 154, tachypneic R 29, O2 saturation (unknown) (no (unknown) (unknown) Ur Bilirubin (units (u nknown) date) Confirm Positive H unknown) (unknown) (no (unknown) (unknown) Ur Bilirubin (units (u nknown) date) Confirm unknown) (unknown) (no (unknown) (unknown) Ur Culture (units (unk nown) date) Indicated? unknown) Specimen cultured (unknown) (no (unknown) (unknown) Ur Culture (units (unk nown) date) Indicated? unknown) (unknown) (no (unknown) (unknown) Ur Leukocyte (units (u nknown) date) Esterase Trace H unknown) (unknown) (no (unknown) (unknown) Ur Leukocyte (units (u nknown) date) Esterase unknown) (unknown) (no (unknown) (unknown) Ur Specific (units (un known) date) [place] 1.020 unknown) (unknown) (no (unknown) (unknown) Ur Specific (units (un known) date) [place] unknown) (unknown) (no (unknown) (unknown) Ur Squamous Epith (units (unknown) date) Cells 1-5 /hpf unknown) (unknown) (no (unknown) (unknown) Ur Squamous Epith (units (unknown) date) Cells unknown) (unknown) (no (unknown) (unknown) Urine Appearance (units (unknown) date) Cloudy unknown) (unknown) (no (unknown) (unknown) Urine Appearance (units (unknown) date) unknown) (unknown) (no (unknown) (unknown) Urine Bacteria (units (unknown) date) None seen unknown) (unknown) (no (unknown) (unknown) Urine Bacteria (units (unknown) date) unknown) (unknown) (no (unknown) (unknown) Urine Bilirubin (units (unknown) date) 3+ H unknown) (unknown) (no (unknown) (unknown) Urine Bilirubin (units (unknown) date) unknown) (unknown) (no (unknown) (unknown) Urine Color Brown (units (unknown) date) unknown) (unknown) (no (unknown) (unknown) Urine Color (units (un known) date) unknown) (unknown) (no (unknown) (unknown) Urine Glucose (units ( unknown) date) (UA) Negative unknown) (unknown) (no (unknown) (unknown) Urine Glucose (units ( unknown) date) (UA) unknown) (unknown) (no (unknown) (unknown) Urine Ketones 1+ (units (unknown) date) H unknown) (unknown) (no (unknown) (unknown) Urine Ketones (units ( unknown) date) unknown) (unknown) (no (unknown) (unknown) Urine Nitrate (units ( unknown) date) Positive H unknown) (unknown) (no (unknown) (unknown) Urine Nitrate (units ( unknown) date) unknown) (unknown) (no (unknown) (unknown) Urine Occult (units (u nknown) date) Blood Trace-intact unknown) (unknown) (no (unknown) (unknown) Urine Occult (units (u nknown) date) Blood unknown) (unknown) (no (unknown) (unknown) Urine Protein 1+ (units (unknown) date) H unknown) (unknown) (no (unknown) (unknown) Urine Protein (units ( unknown) date) unknown) (unknown) (no (unknown) (unknown) Urine RBC (units (unkn own) date) 10-30/hpf H unknown) (unknown) (no (unknown) (unknown) Urine RBC (units (unkn own) date) unknown) (unknown) (no (unknown) (unknown) Urine (units (unkno wn) date) Urobilinogen 1.0 unknown) (unknown) (no (unknown) (unknown) Urine (units (unkno wn) date) Urobilinogen unknown) (unknown) (no (unknown) (unknown) Urine WBC 1-5/hpf (units (unknown) date) unknown) (unknown) (no (unknown) (unknown) Urine WBC (units (unkn own) date) unknown) (unknown) (no (unknown) (unknown) Urine pH 6.5 (units (u nknown) date) unknown) (unknown) (no (unknown) (unknown) Urine pH (units (unkno wn) date) unknown) (unknown) (no (unknown) (unknown) Vital Signs (units (un known) date) unknown) (unknown) (no (unknown) (unknown) WBC 9.6 (units (unkno wn) date) unknown) (unknown) (no (unknown) (unknown) WBC (units (unkno wn) date) unknown) (unknown) (no (unknown) (unknown) [Embedded Image (units (unknown) date) Not Available] unknown) (unknown) (no (unknown) (unknown) [From Prevnar] (units (unknown) date) and feet x unknown) (unknown) (no (unknown) (unknown) a recent 30 lb (units (unknown) date) weight loss, and unknown) night sweats with a shuffling gait x6 weeks. He (unknown) (no (unknown) (unknown) after. (units (unkno wn) date) unknown) (unknown) (no (unknown) (unknown) albumin 3.1, CK (units (unknown) date) 53, initial unknown) troponin negative, BNP 1430. EKG atrial sensed (unknown) (no (unknown) (unknown) alcohol intake (units (unknown) date) frequency a few unknown) times a month (unknown) (no (unknown) (unknown) amlodipine 5 mg (units (unknown) date) tablet 5 mg PO unknown) DAILY 06/16/22 06/16/22 History (unknown) (no (unknown) (unknown) and intact (units (unk nown) date) without rashes, unknown) ulcerations or petechiae. (unknown) (no (unknown) (unknown) and place, but a (units (unknown) date) very poor unknown) historian, stated that 'he came in today by himself (unknown) (no (unknown) (unknown) and surgical (units (u nknown) date) interventions and unknown) increases the chances of poor outcomes such as (unknown) (no (unknown) (unknown) antibiotics for (units (unknown) date) treatment of UTI, unknown) further imaging studies and surgical consult (unknown) (no (unknown) (unknown) apixaban 5 mg (units ( unknown) date) tablet (Eliquis) 5 unknown) mg PO BID blood thinner 06/16/22 06/16/22 (unknown) (no (unknown) (unknown) appears is no (units ( unknown) date) distress at this unknown) time, no apparent jaundice, right upper quadrant (unknown) (no (unknown) (unknown) are present in (units (unknown) date) all 4 quadrants unknown) without guarding or rebound, no CVA tenderness. (unknown) (no (unknown) (unknown) attitude thought (units (unknown) date) context and unknown) judgment are inappropriate- confused, poor (unknown) (no (unknown) (unknown) because he had (units (unknown) date) black urine this unknown) morning'. He did not recall seeing Dr. Gillette, (unknown) (no (unknown) (unknown) bruit, no cardiac (units (unknown) date) pulsations unknown) present. (unknown) (no (unknown) (unknown) cardiology's (units (u nknown) date) office due to unknown) deteriorating health concerns. patient admitted for (unknown) (no (unknown) (unknown) cardiology's (units (u nknown) date) office due to his unknown) significant presentation of cachexia, weakness, (unknown) (no (unknown) (unknown) care inpatient (units (unknown) date) hospital unknown) management for sepsis, transaminitis, UTI. The patient (unknown) (no (unknown) (unknown) clear and mucous (units (unknown) date) membranes are dry. unknown) Neck is supple and symmetric, trachea is (unknown) (no (unknown) (unknown) complications in (units (unknown) date) relation to acute unknown) illness of sepsis, UTI, transaminase, high (unknown) (no (unknown) (unknown) conjugate to of (units (unknown) date) hands unknown) (unknown) (no (unknown) (unknown) demonstrated (units (u nknown) date) bibasilar unknown) infiltrates versus inflammatory pulmonary opacities mild (unknown) (no (unknown) (unknown) diagnostic (units (unk nown) date) imaging, and unknown) laboratory results. (unknown) (no (unknown) (unknown) differential also (units (unknown) date) includes unknown) neoplastic processes as well as infectious (unknown) (no (unknown) (unknown) difficulty, (units (un known) date) struggles slightly unknown) with given directions. Patient has no WBC, but (unknown) (no (unknown) (unknown) dilated. (units (unkno wn) date) unknown) (unknown) (no (unknown) (unknown) distress at this (units (unknown) date) time. unknown) (unknown) (no (unknown) (unknown) documented and/or (units (unknown) date) surrogate decision unknown) maker is listed in the patient's medical (unknown) (no (unknown) (unknown) etiologies such (units (unknown) date) as micro abscesses unknown) (unknown) (no (unknown) (unknown) fibrillation. (units ( unknown) date) unknown) (unknown) (no (unknown) (unknown) fluticasone (units (un known) date) propionate 44 44 unknown) mcg inhalation DAILY 06/16/22 06/16/22 History (unknown) (no (unknown) (unknown) for mild sepsis, (units (unknown) date) transaminitis, unknown) UTI, encephalopathy. (unknown) (no (unknown) (unknown) gabapentin 300 mg (units (unknown) date) capsule 300 mg PO unknown) BID 06/16/22 06/16/22 History (unknown) (no (unknown) (unknown) historian. (units (unk nown) date) unknown) (unknown) (no (unknown) (unknown) intake and (units (unk nown) date) nutrition. unknown) (unknown) (no (unknown) (unknown) is at much higher (units (unknown) date) risk for medical unknown) and surgical complications because of his (unknown) (no (unknown) (unknown) left shiftneut (units (unknown) date) 8200, initial unknown) lactate 4.3, repeat 2.7, procalcitonin 3.27, PT (unknown) (no (unknown) (unknown) liver, as well as (units (unknown) date) multifocal unknown) hepatocellular carcinoma or infection. Numerous (unknown) (no (unknown) (unknown) malaise, balance (units (unknown) date) coordination unknown) issues, and concerns for neoplastic syndrome with (unknown) (no (unknown) (unknown) malnutrition. (units ( unknown) date) These factors unknown) increase the difficulty and complexity of medical (unknown) (no (unknown) (unknown) markers. (units (unkno wn) date) unknown) (unknown) (no (unknown) (unknown) mcg/actuation HFA (units (unknown) date) aerosol inhaler unknown) (unknown) (no (unknown) (unknown) medication (units (unk nown) date) reconciliation unknown) accurately. (unknown) (no (unknown) (unknown) midline, no (units (un known) date) adenopathy, no unknown) thyroid enlargement, nontender, no masses palpated. (unknown) (no (unknown) (unknown) mild sepsis, (units (u nknown) date) transaminitis, unknown) UTI, encephalopathy. This patient requires acute (unknown) (no (unknown) (unknown) morbidity and (units ( unknown) date) mortality. 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 Patient denies any pain, and (unknown) (no (unknown) (unknown) obvious (units (unkno wn) date) deformity, unknown) crepitus, effusions, cyanosis, clubbing or edema present. (unknown) (no (unknown) (unknown) on room air. (units (u nknown) date) unknown) (unknown) (no (unknown) (unknown) opacities mild to (units (unknown) date) moderate right unknown) greater than left pulmonary effusion. (unknown) (no (unknown) (unknown) or labored (units (unk nown) date) breathing, mildly unknown) tachypneic. 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 Gillette (unknown) (no (unknown) (unknown) pain, or fever. (units (unknown) date) unknown) (unknown) (no (unknown) (unknown) pneumococcal (units (u nknown) date) 7-valent AdvReac unknown) Intermediate swelling Verified 06/16/22 12:46 (unknown) (no (unknown) (unknown) present on (units (unk nown) date) admission unknown) (unknown) (no (unknown) (unknown) record. (units (unkno wn) date) unknown) (unknown) (no (unknown) (unknown) regarding (units (unkn own) date) transaminitis, unknown) monitoring intermittent uncontrolled atrial (unknown) (no (unknown) (unknown) residual>500cc (units (unknown) date) place Brice unknown) (unknown) (no (unknown) (unknown) sensation to (units (u nknown) date) touch intact, no unknown) gross deficits noted of cranial nerves. (unknown) (no (unknown) (unknown) sepsis UTI, and (units (unknown) date) transaminitis, unknown) expected length of stay greater than 2 midnights. (unknown) (no (unknown) (unknown) shuffling gait x6 (units (unknown) date) weeks. unknown) (unknown) (no (unknown) (unknown) significantly (units ( unknown) date) hypovolemic. unknown) (unknown) (no (unknown) (unknown) small (units (unkno wn) date) hypoattenuating unknown) lesions throughout the spleen are also nonspecific and the (unknown) (no (unknown) (unknown) suspicion for (units ( unknown) date) metastatic unknown) disease/chronic illness atrial fibrillation and HTN. (unknown) (no (unknown) (unknown) tachycardia with (units (unknown) date) heart rates unknown) 111-154, and tachypneic respiratory rate in the (unknown) (no (unknown) (unknown) the chances poor (units (unknown) date) outcomes such as unknown) mortality and morbidity as well as impaired (unknown) (no (unknown) (unknown) the patient's (units ( unknown) date) current unknown) medications. (unknown) (no (unknown) (unknown) to moderate right (units (unknown) date) greater than left unknown) pulmonary effusion. SOFA:2 patient admitted (unknown) (no (unknown) (unknown) today; this time (units (unknown) date) is exclusive of unknown) procedural time. (unknown) (no (unknown) (unknown) unsure if this is (units (unknown) date) the patient's unknown) baseline. Due to cognitive impairment unable to (unknown) (no (unknown) (unknown) ventricular paced (units (unknown) date) rhythm rate 72, unknown) abnormal. COVID, influenza a/B/RSV negative. (unknown) (no (unknown) (unknown) verify (units (unkno wn) date) medications in the unknown) morning (unknown) (no (unknown) (unknown) was brought into (units (unknown) date) the ED by his unknown) . In ED patient demonstrated escalating (unknown) (no (unknown) (unknown) wheezes, rhonchi, (units (unknown) date) or rales. unknown) (unknown) (no (unknown) (unknown) wound healing, (units (unknown) date) and immune unknown) suppression. Result panel 224 (unknown) (no (unknown) (unknown) (no value) (units (unk nown) date) unknown) (unknown) (no (unknown) (unknown) (Flovent HFA) (units ( unknown) date) unknown) (unknown) (no (unknown) (unknown) (past 8 hours): (units (unknown) date) unknown) (unknown) (no (unknown) (unknown) -BLD/Urine (units (unk nown) date) culture pending unknown) (unknown) (no (unknown) (unknown) -Chest CT (units (unkn own) date) demonstrated unknown) bibasilar infiltrates versus inflammatory pulmonary (unknown) (no (unknown) (unknown) -[id number] cc/HR (units (unknown) date) unknown) (unknown) (no (unknown) (unknown) -ED:heart rates (units (unknown) date) 111-154, and unknown) tachypneic respiratory rate in the 20s. (1L bolus) (unknown) (no (unknown) (unknown) -EKG atrial (units (un known) date) sensed ventricular unknown) paced rhythm rate 72, abnormal. (unknown) (no (unknown) (unknown) -GGT 516 -Ordered (units (unknown) date) RT upper Quad U/S unknown) tomorrow -will order MRCP if bile ducts are (unknown) (no (unknown) (unknown) -I personally (units ( unknown) date) reviewed imaging unknown) studies: CXR ?Possible mild right and (unknown) (no (unknown) (unknown) -I personally (units (u nknown) date) reviewed: unknown) ABD/Pelvis CT:?Multiple ill-defined hypoattenuating mass (unknown) (no (unknown) (unknown) -Monitor (units (unkno wn) date) electrolytes unknown) (unknown) (no (unknown) (unknown) -Monitor for (units (u nknown) date) neurological unknown) changes, toxic metabolic encephalopathy (unknown) (no (unknown) (unknown) -[id number] checks (units (unknown) date) while NPO Only unknown) (unknown) (no (unknown) (unknown) -Negative Fever, (units (unknown) date) jaundice, right unknown) upper quadrant pain (unknown) (no (unknown) (unknown) -Ordered: CRP, (units (unknown) date) ESR, AFP, EPO, unknown) hepatitis panel-trend LFT's, and inflammatory (unknown) (no (unknown) (unknown) -R Factor: 0.4 (units (unknown) date) cholestatic unknown) injury- Ordered ABD/P CT (unknown) (no (unknown) (unknown) -SOFA:2 (units (unkno wn) date) unknown) (unknown) (no (unknown) (unknown) -Sodium 135, BUN (units (unknown) date) 34, glucose 146, unknown) calcium 8.1, magnesium 2.6, phosphorus 4.1, (unknown) (no (unknown) (unknown) -Suspect (units (unkno wn) date) dehydration-patien unknown) t appears severely volume depleted (unknown) (no (unknown) (unknown) -WBC neg, neut# (units (unknown) date) 8200, initial unknown) lactate 4.3, repeat 2.7, procalcitonin 3.27, (unknown) (no (unknown) (unknown) -Weakness, (units (unk nown) date) deconditioning unknown) (unknown) (no (unknown) (unknown) -admit BP 149/78, (units (unknown) date) tachycardic heart unknown) rate 154, tachypneic R 29, O2 saturation 98% (unknown) (no (unknown) (unknown) -as evidence by (units (unknown) date) BMI 22.2-no unknown) records for comparison. (unknown) (no (unknown) (unknown) -bladder scans as (units (unknown) date) needed, postvoid unknown) residual >500cc -straight cath, 2nd postvoid (unknown) (no (unknown) (unknown) -cachexia, (units (unk nown) date) weakness, malaise unknown) balance coordination issues, recent 30 lb weight (unknown) (no (unknown) (unknown) -consult for (units (u nknown) date) PT/OT/POWDER EXPERT-social unknown) work: Concerned patient is not safe to return (unknown) (no (unknown) (unknown) -continue Eliquis (units (unknown) date) unknown) (unknown) (no (unknown) (unknown) -continue (units (unkn own) date) amlodipine-was unknown) unable to contact patient's , we will need to (unknown) (no (unknown) (unknown) -dietary consult (units (unknown) date) ordered to unknown) evaluate and implement steps to improve caloric (unknown) (no (unknown) (unknown) -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 (unknown) (no (unknown) (unknown) -initial troponin (units (unknown) date) negative (trend unknown) x3), BNP 1430-patient has no edema and appear (unknown) (no (unknown) (unknown) -initiated Zosyn (units (unknown) date) unknown) (unknown) (no (unknown) (unknown) -last echo in our (units (unknown) date) records to of 2018 unknown) EF 55-60% (unknown) (no (unknown) (unknown) -monitor for (units (u nknown) date) septic shock unknown) (unknown) (no (unknown) (unknown) -monitor for (units (u nknown) date) starvation ketosis unknown) (unknown) (no (unknown) (unknown) -ordered 1L bolus (units (unknown) date) followed by unknown) [id number] cc/HR (unknown) (no (unknown) (unknown) -pain and (units (unkn own) date) antiemetic unknown) management (unknown) (no (unknown) (unknown) -patient's (units (unk nown) date) malnutrition unknown) places them at high risk for medical and surgical (unknown) (no (unknown) (unknown) -phosphorus 4.1, (units (unknown) date) bili 2.1, AST 61, unknown) ALT 63, alk-phos 428, total protein 5.8,PT (unknown) (no (unknown) (unknown) -placed general (units (unknown) date) surgery consult unknown) Dr. Turner (unknown) (no (unknown) (unknown) -positive nitrate (units (unknown) date) urinalysis culture unknown) pending, transaminitis (unknown) (no (unknown) (unknown) -strict fall (units (u nknown) date) precautions, bed unknown) alarm, keep door open for observation (unknown) (no (unknown) (unknown) -urinalysis (units (un known) date) brown, positive unknown) for protein, ketones, nitrites, bili 3+, leuks, RBC (unknown) (no (unknown) (unknown) [id number] (units (unkno wn) date) unknown) (unknown) (no (unknown) (unknown) 06/16/22 06/16/22 (units (unknown) date) 06/16/22 unknown) (unknown) (no (unknown) (unknown) 06/16/22 06/16/22 (units (unknown) date) unknown) (unknown) (no (unknown) (unknown) 06/16/22 12:35 (units (unknown) date) unknown) (unknown) (no (unknown) (unknown) 06/16/22 (units (unkno wn) date) unknown) (unknown) (no (unknown) (unknown) 06/17/22 0211 (units ( unknown) date) unknown) (unknown) (no (unknown) (unknown) 1. Sepsis without (units (unknown) date) septic shock, unknown) likely hepatobiliary origin, and UTI, acute, (unknown) (no (unknown) (unknown) 1030- Culture (units (unknown) date) pending unknown) (unknown) (no (unknown) (unknown) 12:35 12:35 12:35 (units (unknown) date) unknown) (unknown) (no (unknown) (unknown) 13:15 06/16/22 (units (unknown) date) unknown) (unknown) (no (unknown) (unknown) 13:30 (units (unkno wn) date) unknown) (unknown) (no (unknown) (unknown) 13:45 06/16/22 (units (unknown) date) unknown) (unknown) (no (unknown) (unknown) 13:46 06/16/22 (units (unknown) date) unknown) (unknown) (no (unknown) (unknown) 13:46 (units (unkno wn) date) unknown) (unknown) (no (unknown) (unknown) 14:00 06/16/22 (units (unknown) date) unknown) (unknown) (no (unknown) (unknown) 14:24 (units (unkno wn) date) unknown) (unknown) (no (unknown) (unknown) 14:30 06/16/22 (units (unknown) date) unknown) (unknown) (no (unknown) (unknown) 14:45 06/16/22 (units (unknown) date) unknown) (unknown) (no (unknown) (unknown) 15:00 (units (unkno wn) date) unknown) (unknown) (no (unknown) (unknown) 15:15 06/16/22 (units (unknown) date) unknown) (unknown) (no (unknown) (unknown) 15:30 06/16/22 (units (unknown) date) unknown) (unknown) (no (unknown) (unknown) 15:30 17:55 (units (un known) date) unknown) (unknown) (no (unknown) (unknown) 15:34 06/16/22 (units (unknown) date) unknown) (unknown) (no (unknown) (unknown) 15:34 (units (unkno wn) date) unknown) (unknown) (no (unknown) (unknown) 15:45 06/16/22 (units (unknown) date) unknown) (unknown) (no (unknown) (unknown) 15:45 (units (unkno wn) date) unknown) (unknown) (no (unknown) (unknown) 16:00 06/16/22 (units (unknown) date) unknown) (unknown) (no (unknown) (unknown) 16:15 06/16/22 (units (unknown) date) unknown) (unknown) (no (unknown) (unknown) 16:15 (units (unkno wn) date) unknown) (unknown) (no (unknown) (unknown) 16:30 06/16/22 (units (unknown) date) unknown) (unknown) (no (unknown) (unknown) 16:31 06/16/22 (units (unknown) date) unknown) (unknown) (no (unknown) (unknown) 16:31 (units (unkno wn) date) unknown) (unknown) (no (unknown) (unknown) 16:45 06/16/22 (units (unknown) date) unknown) (unknown) (no (unknown) (unknown) 17.6, INR 1.5, (units (unknown) date) PTT 38 unknown) (unknown) (no (unknown) (unknown) 17.6, INR 1.5, (units (unknown) date) PTT 38. Sodium unknown) 135, BUN 34, glucose 146, calcium 8.1, magnesium (unknown) (no (unknown) (unknown) 17:00 06/16/22 (units (unknown) date) unknown) (unknown) (no (unknown) (unknown) 17:00 (units (unkno wn) date) unknown) (unknown) (no (unknown) (unknown) 17:15 06/16/22 (units (unknown) date) unknown) (unknown) (no (unknown) (unknown) 17:15 (units (unkno wn) date) unknown) (unknown) (no (unknown) (unknown) 17:30 06/16/22 (units (unknown) date) unknown) (unknown) (no (unknown) (unknown) 17:45 (units (unkno wn) date) unknown) (unknown) (no (unknown) (unknown) 17:46 06/16/22 (units (unknown) date) unknown) (unknown) (no (unknown) (unknown) 17:59 (units (unkno wn) date) unknown) (unknown) (no (unknown) (unknown) 18:00 06/16/22 (units (unknown) date) unknown) (unknown) (no (unknown) (unknown) 18:01 06/16/22 (units (unknown) date) unknown) (unknown) (no (unknown) (unknown) 18:15 06/16/22 (units (unknown) date) unknown) (unknown) (no (unknown) (unknown) 18:15 (units (unkno wn) date) unknown) (unknown) (no (unknown) (unknown) 18:30 06/16/22 (units (unknown) date) unknown) (unknown) (no (unknown) (unknown) 18:30 (units (unkno wn) date) unknown) (unknown) (no (unknown) (unknown) 18:45 06/16/22 (units (unknown) date) unknown) (unknown) (no (unknown) (unknown) 19:00 06/16/22 (units (unknown) date) unknown) (unknown) (no (unknown) (unknown) 19:00 (units (unkno wn) date) unknown) (unknown) (no (unknown) (unknown) 19:15 06/16/22 (units (unknown) date) unknown) (unknown) (no (unknown) (unknown) 19:15 (units (unkno wn) date) unknown) (unknown) (no (unknown) (unknown) 19:30 06/16/22 (units (unknown) date) unknown) (unknown) (no (unknown) (unknown) 19:45 06/16/22 (units (unknown) date) unknown) (unknown) (no (unknown) (unknown) 19:45 (units (unkno wn) date) unknown) (unknown) (no (unknown) (unknown) 2. Transaminitis, (units (unknown) date) with elevated unknown) alkaline phosphate, acute, present on admission (unknown) (no (unknown) (unknown) 2.6, phosphorus (units (unknown) date) 4.1, bili 2.1, AST unknown) 61, ALT 63, alk-phos 428, total protein 5.8, (unknown) (no (unknown) (unknown) 20:00 06/16/22 (units (unknown) date) unknown) (unknown) (no (unknown) (unknown) 20:00 (units (unkno wn) date) unknown) (unknown) (no (unknown) (unknown) 20:15 06/16/22 (units (unknown) date) unknown) (unknown) (no (unknown) (unknown) 20:30 06/16/22 (units (unknown) date) unknown) (unknown) (no (unknown) (unknown) 20:30 (units (unkno wn) date) unknown) (unknown) (no (unknown) (unknown) 20:45 06/16/22 (units (unknown) date) unknown) (unknown) (no (unknown) (unknown) 20:46 06/16/22 (units (unknown) date) unknown) (unknown) (no (unknown) (unknown) 20:46 (units (unkno wn) date) unknown) (unknown) (no (unknown) (unknown) 20:55 (units (unkno wn) date) unknown) (unknown) (no (unknown) (unknown) 20s. During admit (units (unknown) date) interview patient unknown) is pleasantly confused orientated to self (unknown) (no (unknown) (unknown) 3. UTI, acute, (units (unknown) date) present on unknown) admission (unknown) (no (unknown) (unknown) 4 mos (units (unkno wn) date) unknown) (unknown) (no (unknown) (unknown) 4. (units (unkno wn) date) Encephalopathy/cog unknown) nitive impairment, unclear if this is chronic or acute, (unknown) (no (unknown) (unknown) 5. Essential (units (u nknown) date) hypertension, unknown) chronic, present on admission (unknown) (no (unknown) (unknown) 6. Atrial (units (unkn own) date) fibrillation, with unknown) pacemaker, on chronic Eliquis, acute on chronic, (unknown) (no (unknown) (unknown) 7. Malnutrition, (units (unknown) date) mild, acute on unknown) chronic, present on admission (unknown) (no (unknown) (unknown) 98% on room air. (units (unknown) date) Patient did get up unknown) and ambulate to the restroom w/MA without (unknown) (no (unknown) (unknown) A1C 5.8% (units (unkno wn) date) unknown) (unknown) (no (unknown) (unknown) ALT 63 H (units (unkno wn) date) unknown) (unknown) (no (unknown) (unknown) ALT (units (unkno wn) date) unknown) (unknown) (no (unknown) (unknown) APTT 38 H (units (unkn own) date) unknown) (unknown) (no (unknown) (unknown) APTT (units (unkno wn) date) unknown) (unknown) (no (unknown) (unknown) AST 61 H (units (unkno wn) date) unknown) (unknown) (no (unknown) (unknown) AST (units (unkno wn) date) unknown) (unknown) (no (unknown) (unknown) Abdomen: Soft (units ( unknown) date) nontender, unknown) negative for organomegaly, or masses. Bowel sounds (unknown) (no (unknown) (unknown) Age/Sex: 86 / M (units (unknown) date) unknown) (unknown) (no (unknown) (unknown) Albumin 3.1 L (units ( unknown) date) unknown) (unknown) (no (unknown) (unknown) Albumin (units (unkno wn) date) unknown) (unknown) (no (unknown) (unknown) Albumin/Globulin (units (unknown) date) Ratio 1.1 unknown) (unknown) (no (unknown) (unknown) Albumin/Globulin (units (unknown) date) Ratio unknown) (unknown) (no (unknown) (unknown) Alkaline (units (unkno wn) date) Phosphatase 428 H unknown) (unknown) (no (unknown) (unknown) Alkaline (units (unkno wn) date) Phosphatase unknown) (unknown) (no (unknown) (unknown) Allergies (units (unkn own) date) unknown) (unknown) (no (unknown) (unknown) Allergy/AdvReac (units (unknown) date) Type Severity unknown) Reaction Status Date / Time (unknown) (no (unknown) (unknown) Assessment + Plan (units (unknown) date) narrative: unknown) (unknown) (no (unknown) (unknown) Assessment + Plan (units (unknown) date) unknown) (unknown) (no (unknown) (unknown) Asthma (units (unkno wn) date) unknown) (unknown) (no (unknown) (unknown) Atrial (units (unkno wn) date) fibrillation unknown) (unknown) (no (unknown) (unknown) BUN 34 H (units (unkno wn) date) unknown) (unknown) (no (unknown) (unknown) BUN (units (unkno wn) date) unknown) (unknown) (no (unknown) (unknown) BUN/Creatinine (units (unknown) date) Ratio 34.3 H unknown) (unknown) (no (unknown) (unknown) BUN/Creatinine (units (unknown) date) Ratio unknown) (unknown) (no (unknown) (unknown) Baso # (Auto) 100 (units (unknown) date) unknown) (unknown) (no (unknown) (unknown) Baso # (Auto) (units ( unknown) date) unknown) (unknown) (no (unknown) (unknown) Baso % (Auto) 0.8 (units (unknown) date) unknown) (unknown) (no (unknown) (unknown) Baso % (Auto) (units ( unknown) date) unknown) (unknown) (no (unknown) (unknown) Blood Pressure (units (unknown) date) 141/57 H unknown) (unknown) (no (unknown) (unknown) Blood Pressure (units (unknown) date) 141/73 H unknown) (unknown) (no (unknown) (unknown) Blood Pressure (units (unknown) date) 142/65 H 156/70 H unknown) (unknown) (no (unknown) (unknown) Blood Pressure (units (unknown) date) 142/67 H unknown) (unknown) (no (unknown) (unknown) Blood Pressure (units (unknown) date) 143/67 H unknown) (unknown) (no (unknown) (unknown) Blood Pressure (units (unknown) date) 145/69 H unknown) (unknown) (no (unknown) (unknown) Blood Pressure (units (unknown) date) 146/69 H unknown) (unknown) (no (unknown) (unknown) Blood Pressure (units (unknown) date) 147/71 H 150/72 H unknown) (unknown) (no (unknown) (unknown) Blood Pressure (units (unknown) date) 149/68 H 130/59 L unknown) (unknown) (no (unknown) (unknown) Blood Pressure (units (unknown) date) 149/78 H 155/70 H unknown) (unknown) (no (unknown) (unknown) Blood Pressure (units (unknown) date) 150/73 H unknown) (unknown) (no (unknown) (unknown) Blood Pressure (units (unknown) date) 151/72 H unknown) (unknown) (no (unknown) (unknown) Blood Pressure (units (unknown) date) 154/73 H unknown) (unknown) (no (unknown) (unknown) Blood Pressure (units (unknown) date) 156/72 H 151/72 H unknown) (unknown) (no (unknown) (unknown) Blood Pressure (units (unknown) date) 162/114 H unknown) (unknown) (no (unknown) (unknown) Blood Pressure (units (unknown) date) 164/94 H 164/96 H unknown) (unknown) (no (unknown) (unknown) Blood Pressure (units (unknown) date) 179/74 H 179/94 H unknown) (unknown) (no (unknown) (unknown) Blood Pressure (units (unknown) date) 186/112 H 169/75 H unknown) (unknown) (no (unknown) (unknown) Blood Pressure (units (unknown) date) unknown) (unknown) (no (unknown) (unknown) CK-MB (CK-2) Rel (units (unknown) date) Index TNP unknown) (unknown) (no (unknown) (unknown) CK-MB (CK-2) Rel (units (unknown) date) Index unknown) (unknown) (no (unknown) (unknown) CK-MB (CK-2) TNP (units (unknown) date) unknown) (unknown) (no (unknown) (unknown) CK-MB (CK-2) (units (u nknown) date) unknown) (unknown) (no (unknown) (unknown) COVID PCR: (units (unk nown) date) Negative unknown) (unknown) (no (unknown) (unknown) COVID, influenza (units (unknown) date) a/B/RSV negative unknown) (unknown) (no (unknown) (unknown) Calcium 8.1 L (units ( unknown) date) unknown) (unknown) (no (unknown) (unknown) Calcium (units (unkno wn) date) unknown) (unknown) (no (unknown) (unknown) Carbon Dioxide 28 (units (unknown) date) unknown) (unknown) (no (unknown) (unknown) Carbon Dioxide (units (unknown) date) unknown) (unknown) (no (unknown) (unknown) Cardio: regular (units (unknown) date) rate and rhythm unknown) without murmur, rubs, or gallops, no carotid (unknown) (no (unknown) (unknown) Chest: Equal (units (u nknown) date) expansion, unknown) positive kyphoscoliosis, no nasal flaring, retractions, (unknown) (no (unknown) (unknown) Chief complaint: (units (unknown) date) Pain near unknown) pacemaker (unknown) (no (unknown) (unknown) Chloride 99 (units (un known) date) unknown) (unknown) (no (unknown) (unknown) Chloride (units (unkno wn) date) unknown) (unknown) (no (unknown) (unknown) Chronic (units (unkno wn) date) anticoagulation unknown) (unknown) (no (unknown) (unknown) Code status:Full (units (unknown) date) unknown) (unknown) (no (unknown) (unknown) Creatinine 0.99 (units (unknown) date) unknown) (unknown) (no (unknown) (unknown) Creatinine (units (unk nown) date) unknown) (unknown) (no (unknown) (unknown) Critical Care (units ( unknown) date) time: unknown) (unknown) (no (unknown) (unknown) : 1935 (units (unknown) date) Acct:[id number] unknown) (unknown) (no (unknown) (unknown) DVT/VTE (units (unkno wn) date) prophylaxis: unknown) Eliquis, and SCDs (unknown) (no (unknown) (unknown) Date Patient (units (u nknown) date) Seen: 06/16/22 unknown) (unknown) (no (unknown) (unknown) Date of Service: (units (unknown) date) 06/16/22 unknown) (unknown) (no (unknown) (unknown) Disposition: (units (u nknown) date) Patient admitted unknown) to acute care for evaluation and treatment of (unknown) (no (unknown) (unknown) Yoseph Cardoso is (units (unknown) date) a 86-year-old male unknown) with a history of atrial fibrillation, with (unknown) (no (unknown) (unknown) Due to patient's (units (unknown) date) cognitive unknown) impairment/encepha lopathy unable to obtain HPI, ROS, (unknown) (no (unknown) (unknown) Environment (units (un known) date) unknown) (unknown) (no (unknown) (unknown) Eos # (Auto) 0 (units (unknown) date) unknown) (unknown) (no (unknown) (unknown) Eos # (Auto) (units (u nknown) date) unknown) (unknown) (no (unknown) (unknown) Eos % (Auto) 0.1 (units (unknown) date) L unknown) (unknown) (no (unknown) (unknown) Eos % (Auto) (units (u nknown) date) unknown) (unknown) (no (unknown) (unknown) Essential (units (unkn own) date) hypertension unknown) (unknown) (no (unknown) (unknown) Estimated GFR > (units (unknown) date) 60 unknown) (unknown) (no (unknown) (unknown) Estimated GFR (units ( unknown) date) unknown) (unknown) (no (unknown) (unknown) Exam Narrative: (units (unknown) date) unknown) (unknown) (no (unknown) (unknown) Exam (units (unkno wn) date) unknown) (unknown) (no (unknown) (unknown) Family + Social (units (unknown) date) History unknown) (unknown) (no (unknown) (unknown) Family History (units (unknown) date) (Reviewed 06/17/22 unknown) @ 00:47 by Hawa Michael [facility]) (unknown) (no (unknown) (unknown) Father (units (unknown) date) Diabetes mellitus unknown) (unknown) (no (unknown) (unknown) Feels Safe in (units ( unknown) date) Current Yes, unknown) patient lives at home with his . (unknown) (no (unknown) (unknown) Full range of (units ( unknown) date) motion intact unknown) radial and pedal pulses are normal. (unknown) (no (unknown) (unknown) General: Patient (units (unknown) date) is a pleasantly unknown) confused cachectic, frail, elderly male, in no (unknown) (no (unknown) (unknown) Globulin 2.7 (units (u nknown) date) unknown) (unknown) (no (unknown) (unknown) Globulin (units (unkno wn) date) unknown) (unknown) (no (unknown) (unknown) Glucose 146 H (units ( unknown) date) unknown) (unknown) (no (unknown) (unknown) Glucose (units (unkno wn) date) unknown) (unknown) (no (unknown) (unknown) HEENT: (units (unkno wn) date) Normocephalic, unknown) atraumatic, extraocular muscles intact, oral pharynx is (unknown) (no (unknown) (unknown) Hct 46.6 (units (unkno wn) date) unknown) (unknown) (no (unknown) (unknown) Hct (units (unkno wn) date) unknown) (unknown) (no (unknown) (unknown) Head CT negative. 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 (unknown) (no (unknown) (unknown) History (units (unkno wn) date) unknown) (unknown) (no (unknown) (unknown) Home Medications (units (unknown) date) and Allergies unknown) (unknown) (no (unknown) (unknown) Home Medications (units (unknown) date) unknown) (unknown) (no (unknown) (unknown) I confirmed that (units (unknown) date) the patient's unknown) advanced care plan is present, Code status is (unknown) (no (unknown) (unknown) I have personally (units (unknown) date) reviewed patient's unknown) chart notes from PCP, specialists, (unknown) (no (unknown) (unknown) I have utilized (units (unknown) date) all available unknown) immediate resources to obtain, update, or review (unknown) (no (unknown) (unknown) I spent a total (units (unknown) date) of [] minutes of unknown) critical care time on this patient's care (unknown) (no (unknown) (unknown) INR 1.5 H (units (unkn own) date) unknown) (unknown) (no (unknown) (unknown) INR (units (unkno wn) date) unknown) (unknown) (no (unknown) (unknown) Influenza A (units (un known) date) (RT-PCR) Flu a unknown) negative (unknown) (no (unknown) (unknown) Influenza A (units (un known) date) (RT-PCR) unknown) (unknown) (no (unknown) (unknown) Influenza B (units (un known) date) (RT-PCR) Flu b unknown) negative (unknown) (no (unknown) (unknown) Influenza B (units (un known) date) (RT-PCR) unknown) (unknown) (no (unknown) (unknown) [facility] (units (unknown) date) [address] unknown) [place] [address] (unknown) (no (unknown) (unknown) Laboratory (units (unk nown) date) Results - last 24 unknown) hr (unknown) (no (unknown) (unknown) Labs (units (unkno wn) date) unknown) (unknown) (no (unknown) (unknown) Labs: (units (unkno wn) date) unknown) (unknown) (no (unknown) (unknown) Lactate 2.7 H (units ( unknown) date) unknown) (unknown) (no (unknown) (unknown) Lactate 4.3 H* (units (unknown) date) unknown) (unknown) (no (unknown) (unknown) Lactate (units (unkno wn) date) unknown) (unknown) (no (unknown) (unknown) Lipase 45 (units (unkn own) date) unknown) (unknown) (no (unknown) (unknown) Lipase (units (unkno wn) date) unknown) (unknown) (no (unknown) (unknown) Lungs: (units (unkno wn) date) Auscultation of unknown) all lung troy are clear without adventitious sounds, (unknown) (no (unknown) (unknown) Lymph # (Auto) (units (unknown) date) 400 L unknown) (unknown) (no (unknown) (unknown) Lymph # (Auto) (units (unknown) date) unknown) (unknown) (no (unknown) (unknown) Lymph % (Auto) (units (unknown) date) 4.6 L unknown) (unknown) (no (unknown) (unknown) Lymph % (Auto) (units (unknown) date) unknown) (unknown) (no (unknown) (unknown) MCH 30.4 (units (unkno wn) date) unknown) (unknown) (no (unknown) (unknown) MCH (units (unkno wn) date) unknown) (unknown) (no (unknown) (unknown) MCHC 33.0 (units (unkn own) date) unknown) (unknown) (no (unknown) (unknown) MCHC (units (unkno wn) date) unknown) (unknown) (no (unknown) (unknown) MCV 92.4 (units (unkno wn) date) unknown) (unknown) (no (unknown) (unknown) MCV (units (unkno wn) date) unknown) (unknown) (no (unknown) (unknown) Magnesium 2.6 H (units (unknown) date) unknown) (unknown) (no (unknown) (unknown) Magnesium (units (unkn own) date) unknown) (unknown) (no (unknown) (unknown) Medical History (units (unknown) date) (Updated 06/17/22 unknown) @ 00[facility]55 [facility] (unknown) (no (unknown) (unknown) Medication (units (unk nown) date) Instructions unknown) Recorded Confirmed Type (unknown) (no (unknown) (unknown) Meds (units (unkno wn) date) unknown) (unknown) (no (unknown) (unknown) [place] # (Auto) 900 (units (unknown) date) unknown) (unknown) (no (unknown) (unknown) [place] # (Auto) (units ( unknown) date) unknown) (unknown) (no (unknown) (unknown) [place] % (Auto) 9.4 (units (unknown) date) unknown) (unknown) (no (unknown) (unknown) [place] % (Auto) (units ( unknown) date) unknown) (unknown) (no (unknown) (unknown) Mother (units (unknown) date) No problems noted. unknown) (unknown) (no (unknown) (unknown) Musculoskeletal: (units (unknown) date) Diffuse but equal unknown) throughout all extremity muscle wasting, no (unknown) (no (unknown) (unknown) NT-Pro-B (units (unkno wn) date) Natriuret Pep 1430 unknown) H (unknown) (no (unknown) (unknown) NT-Pro-B (units (unkno wn) date) Natriuret Pep unknown) (unknown) (no (unknown) (unknown) Narrative (units (unkn own) date) unknown) (unknown) (no (unknown) (unknown) Narrative: (units (unk nown) date) unknown) (unknown) (no (unknown) (unknown) Negative for JVD (units (unknown) date) unknown) (unknown) (no (unknown) (unknown) Neuro: Alert and (units (unknown) date) orientated x2 unknown) Person + Place , moves all extremities, (unknown) (no (unknown) (unknown) Neut # (Auto) (units ( unknown) date) 8200 H unknown) (unknown) (no (unknown) (unknown) Neut # (Auto) (units ( unknown) date) unknown) (unknown) (no (unknown) (unknown) Neut % (Auto) (units ( unknown) date) 85.1 H unknown) (unknown) (no (unknown) (unknown) Neut % (Auto) (units ( unknown) date) unknown) (unknown) (no (unknown) (unknown) Objective (units (unkn own) date) unknown) (unknown) (no (unknown) (unknown) Oxygen Delivery (units (unknown) date) Method Room Air unknown) (unknown) (no (unknown) (unknown) Oxygen Delivery (units (unknown) date) Method unknown) (unknown) (no (unknown) (unknown) PT 17.6 H (units (unkn own) date) unknown) (unknown) (no (unknown) (unknown) PT (units (unkno wn) date) unknown) (unknown) (no (unknown) (unknown) Pacemaker (units (unkn own) date) unknown) (unknown) (no (unknown) (unknown) Patient History (units (unknown) date) unknown) (unknown) (no (unknown) (unknown) Patient: (units (unkno wn) date) Yoseph Cardoso unknown) MR#: [id number] (unknown) (no (unknown) (unknown) Phosphorus 4.1 H (units (unknown) date) unknown) (unknown) (no (unknown) (unknown) Phosphorus (units (unk nown) date) unknown) (unknown) (no (unknown) (unknown) Plt Count 222 (units ( unknown) date) unknown) (unknown) (no (unknown) (unknown) Plt Count (units (unkn own) date) unknown) (unknown) (no (unknown) (unknown) Potassium 4.8 (units ( unknown) date) unknown) (unknown) (no (unknown) (unknown) Potassium (units (unkn own) date) unknown) (unknown) (no (unknown) (unknown) Procalcitonin (units ( unknown) date) 3.27 H unknown) (unknown) (no (unknown) (unknown) Procalcitonin (units ( unknown) date) unknown) (unknown) (no (unknown) (unknown) Provider: (units (unkn own) date) Hawa Michael unknown) 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 (unknown) (no (unknown) (unknown) Psych: Patient (units (unknown) date) has a well-kept unknown) appearance, pleasant affect, mental status (unknown) (no (unknown) (unknown) Pulse Oximetry 93 (units (unknown) date) 100 unknown) (unknown) (no (unknown) (unknown) Pulse Oximetry 94 (units (unknown) date) 96 unknown) (unknown) (no (unknown) (unknown) Pulse Oximetry 95 (units (unknown) date) unknown) (unknown) (no (unknown) (unknown) Pulse Oximetry 96 (units (unknown) date) 91 unknown) (unknown) (no (unknown) (unknown) Pulse Oximetry 96 (units (unknown) date) 99 unknown) (unknown) (no (unknown) (unknown) Pulse Oximetry 96 (units (unknown) date) unknown) (unknown) (no (unknown) (unknown) Pulse Oximetry 97 (units (unknown) date) 96 97 unknown) (unknown) (no (unknown) (unknown) Pulse Oximetry 97 (units (unknown) date) 97 98 unknown) (unknown) (no (unknown) (unknown) Pulse Oximetry 97 (units (unknown) date) 97 unknown) (unknown) (no (unknown) (unknown) Pulse Oximetry 97 (units (unknown) date) unknown) (unknown) (no (unknown) (unknown) Pulse Oximetry 98 (units (unknown) date) 97 unknown) (unknown) (no (unknown) (unknown) Pulse Oximetry 98 (units (unknown) date) unknown) (unknown) (no (unknown) (unknown) Pulse Oximetry (units (unknown) date) unknown) (unknown) (no (unknown) (unknown) Pulse Rate 111 H (units (unknown) date) unknown) (unknown) (no (unknown) (unknown) Pulse Rate 114 H (units (unknown) date) 118 H unknown) (unknown) (no (unknown) (unknown) Pulse Rate 154 H (units (unknown) date) unknown) (unknown) (no (unknown) (unknown) Pulse Rate 72 66 (units (unknown) date) unknown) (unknown) (no (unknown) (unknown) Pulse Rate 72 71 (units (unknown) date) unknown) (unknown) (no (unknown) (unknown) Pulse Rate 72 74 (units (unknown) date) unknown) (unknown) (no (unknown) (unknown) Pulse Rate 72 (units ( unknown) date) unknown) (unknown) (no (unknown) (unknown) Pulse Rate 73 74 (units (unknown) date) unknown) (unknown) (no (unknown) (unknown) Pulse Rate 73 87 (units (unknown) date) 98 H unknown) (unknown) (no (unknown) (unknown) Pulse Rate 73 (units ( unknown) date) unknown) (unknown) (no (unknown) (unknown) Pulse Rate 74 104 (units (unknown) date) H 106 H unknown) (unknown) (no (unknown) (unknown) Pulse Rate 75 116 (units (unknown) date) H unknown) (unknown) (no (unknown) (unknown) Pulse Rate 75 70 (units (unknown) date) unknown) (unknown) (no (unknown) (unknown) Pulse Rate 75 74 (units (unknown) date) 74 unknown) (unknown) (no (unknown) (unknown) Pulse Rate 75 (units ( unknown) date) unknown) (unknown) (no (unknown) (unknown) Pulse Rate 76 (units ( unknown) date) unknown) (unknown) (no (unknown) (unknown) Pulse Rate 78 75 (units (unknown) date) unknown) (unknown) (no (unknown) (unknown) Pulse Rate 84 77 (units (unknown) date) unknown) (unknown) (no (unknown) (unknown) Pulse Rate 86 72 (units (unknown) date) unknown) (unknown) (no (unknown) (unknown) Pulse Rate 98 H (units (unknown) date) unknown) (unknown) (no (unknown) (unknown) RBC 5.05 (units (unkno wn) date) unknown) (unknown) (no (unknown) (unknown) RBC (units (unkno wn) date) unknown) (unknown) (no (unknown) (unknown) RDW 14.4 (units (unkno wn) date) unknown) (unknown) (no (unknown) (unknown) RDW (units (unkno wn) date) unknown) (unknown) (no (unknown) (unknown) RSV (PCR) (units (unkn own) date) Negative unknown) (unknown) (no (unknown) (unknown) RSV (PCR) (units (unkn own) date) unknown) (unknown) (no (unknown) (unknown) Respiratory Rate (units (unknown) date) 12 25 H unknown) (unknown) (no (unknown) (unknown) Respiratory Rate (units (unknown) date) 13 26 H unknown) (unknown) (no (unknown) (unknown) Respiratory Rate (units (unknown) date) 16 20 unknown) (unknown) (no (unknown) (unknown) Respiratory Rate (units (unknown) date) 17 26 H unknown) (unknown) (no (unknown) (unknown) Respiratory Rate (units (unknown) date) 17 unknown) (unknown) (no (unknown) (unknown) Respiratory Rate (units (unknown) date) 18 32 H unknown) (unknown) (no (unknown) (unknown) Respiratory Rate (units (unknown) date) 18 unknown) (unknown) (no (unknown) (unknown) Respiratory Rate (units (unknown) date) 19 18 unknown) (unknown) (no (unknown) (unknown) Respiratory Rate (units (unknown) date) 19 34 H 39 H unknown) (unknown) (no (unknown) (unknown) Respiratory Rate (units (unknown) date) 19 unknown) (unknown) (no (unknown) (unknown) Respiratory Rate (units (unknown) date) 20 unknown) (unknown) (no (unknown) (unknown) Respiratory Rate (units (unknown) date) 22 20 unknown) (unknown) (no (unknown) (unknown) Respiratory Rate (units (unknown) date) 23 17 16 unknown) (unknown) (no (unknown) (unknown) Respiratory Rate (units (unknown) date) 23 18 unknown) (unknown) (no (unknown) (unknown) Respiratory Rate (units (unknown) date) 24 19 unknown) (unknown) (no (unknown) (unknown) Respiratory Rate (units (unknown) date) 24 23 unknown) (unknown) (no (unknown) (unknown) Respiratory Rate (units (unknown) date) 27 H unknown) (unknown) (no (unknown) (unknown) Respiratory Rate (units (unknown) date) 29 H unknown) (unknown) (no (unknown) (unknown) Respiratory Rate (units (unknown) date) 30 H 24 unknown) (unknown) (no (unknown) (unknown) Respiratory Rate (units (unknown) date) unknown) (unknown) (no (unknown) (unknown) Review of Systems (units (unknown) date) unknown) (unknown) (no (unknown) (unknown) SARS-CoV-2 (PCR) (units (unknown) date) Negative unknown) (unknown) (no (unknown) (unknown) SARS-CoV-2 (PCR) (units (unknown) date) unknown) (unknown) (no (unknown) (unknown) Safety + (units (unkno wn) date) Behavioral: unknown) (unknown) (no (unknown) (unknown) Signed (units (unkno wn) date) By:<Electronically unknown) signed by Hawa [facility] Alec> (unknown) (no (unknown) (unknown) Skin: Warm Very (units (unknown) date) dry, poor turgor, unknown) appears significantly dehydrated and wasting (unknown) (no (unknown) (unknown) Smoking Status (units (unknown) date) never unknown) (unknown) (no (unknown) (unknown) Sodium 135 L (units (u nknown) date) unknown) (unknown) (no (unknown) (unknown) Sodium (units (unkno wn) date) unknown) (unknown) (no (unknown) (unknown) Substance Use (units ( unknown) date) Type does not use unknown) (unknown) (no (unknown) (unknown) Surgical History (units (unknown) date) (Updated 06/16/22 unknown) @ 21:27 by Hawa Michael [facility]) (unknown) (no (unknown) (unknown) Surrogate (units (unkn own) date) decision maker: unknown) Aletha Cardoso (unknown) (no (unknown) (unknown) Temperature 98.1 (units (unknown) date) F unknown) (unknown) (no (unknown) (unknown) Temperature (units (un known) date) unknown) (unknown) (no (unknown) (unknown) This increases (units (unknown) date) the difficulty in unknown) complexity of medical management and increases (unknown) (no (unknown) (unknown) Time Patient (units (u nknown) date) Seen: 15:35 unknown) (unknown) (no (unknown) (unknown) Time Spent With (units (unknown) date) Patient unknown) (unknown) (no (unknown) (unknown) Tobacco + (units (unkn own) date) Substance use: unknown) (unknown) (no (unknown) (unknown) Total Bilirubin (units (unknown) date) 2.1 H unknown) (unknown) (no (unknown) (unknown) Total Bilirubin (units (unknown) date) unknown) (unknown) (no (unknown) (unknown) Total Creatine (units (unknown) date) Kinase 53 L unknown) (unknown) (no (unknown) (unknown) Total Creatine (units (unknown) date) Kinase unknown) (unknown) (no (unknown) (unknown) Total Protein 5.8 (units (unknown) date) L unknown) (unknown) (no (unknown) (unknown) Total Protein (units ( unknown) date) unknown) (unknown) (no (unknown) (unknown) Troponin I < (units (u nknown) date) 0.012 unknown) (unknown) (no (unknown) (unknown) Troponin I (units (unk nown) date) unknown) (unknown) (no (unknown) (unknown) Upon admit BP (units (u nknown) date) 149/78, unknown) tachycardic heart rate 154, tachypneic R 29, O2 saturation (unknown) (no (unknown) (unknown) Ur Bilirubin (units (u nknown) date) Confirm Positive H unknown) (unknown) (no (unknown) (unknown) Ur Bilirubin (units (u nknown) date) Confirm unknown) (unknown) (no (unknown) (unknown) Ur Culture (units (unk nown) date) Indicated? unknown) Specimen cultured (unknown) (no (unknown) (unknown) Ur Culture (units (unk nown) date) Indicated? unknown) (unknown) (no (unknown) (unknown) Ur Leukocyte (units (u nknown) date) Esterase Trace H unknown) (unknown) (no (unknown) (unknown) Ur Leukocyte (units (u nknown) date) Esterase unknown) (unknown) (no (unknown) (unknown) Ur Specific (units (un known) date) [place] 1.020 unknown) (unknown) (no (unknown) (unknown) Ur Specific (units (un known) date) [place] unknown) (unknown) (no (unknown) (unknown) Ur Squamous Epith (units (unknown) date) Cells 1-5 /hpf unknown) (unknown) (no (unknown) (unknown) Ur Squamous Epith (units (unknown) date) Cells unknown) (unknown) (no (unknown) (unknown) Urine Appearance (units (unknown) date) Cloudy unknown) (unknown) (no (unknown) (unknown) Urine Appearance (units (unknown) date) unknown) (unknown) (no (unknown) (unknown) Urine Bacteria (units (unknown) date) None seen unknown) (unknown) (no (unknown) (unknown) Urine Bacteria (units (unknown) date) unknown) (unknown) (no (unknown) (unknown) Urine Bilirubin (units (unknown) date) 3+ H unknown) (unknown) (no (unknown) (unknown) Urine Bilirubin (units (unknown) date) unknown) (unknown) (no (unknown) (unknown) Urine Color Brown (units (unknown) date) unknown) (unknown) (no (unknown) (unknown) Urine Color (units (un known) date) unknown) (unknown) (no (unknown) (unknown) Urine Glucose (units ( unknown) date) (UA) Negative unknown) (unknown) (no (unknown) (unknown) Urine Glucose (units ( unknown) date) (UA) unknown) (unknown) (no (unknown) (unknown) Urine Ketones 1+ (units (unknown) date) H unknown) (unknown) (no (unknown) (unknown) Urine Ketones (units ( unknown) date) unknown) (unknown) (no (unknown) (unknown) Urine Nitrate (units ( unknown) date) Positive H unknown) (unknown) (no (unknown) (unknown) Urine Nitrate (units ( unknown) date) unknown) (unknown) (no (unknown) (unknown) Urine Occult (units (u nknown) date) Blood Trace-intact unknown) (unknown) (no (unknown) (unknown) Urine Occult (units (u nknown) date) Blood unknown) (unknown) (no (unknown) (unknown) Urine Protein 1+ (units (unknown) date) H unknown) (unknown) (no (unknown) (unknown) Urine Protein (units ( unknown) date) unknown) (unknown) (no (unknown) (unknown) Urine RBC (units (unkn own) date) 10-30/hpf H unknown) (unknown) (no (unknown) (unknown) Urine RBC (units (unkn own) date) unknown) (unknown) (no (unknown) (unknown) Urine (units (unkno wn) date) Urobilinogen 1.0 unknown) (unknown) (no (unknown) (unknown) Urine (units (unkno wn) date) Urobilinogen unknown) (unknown) (no (unknown) (unknown) Urine WBC 1-5/hpf (units (unknown) date) unknown) (unknown) (no (unknown) (unknown) Urine WBC (units (unkn own) date) unknown) (unknown) (no (unknown) (unknown) Urine pH 6.5 (units (u nknown) date) unknown) (unknown) (no (unknown) (unknown) Urine pH (units (unkno wn) date) unknown) (unknown) (no (unknown) (unknown) Vital Signs (units (un known) date) unknown) (unknown) (no (unknown) (unknown) WBC 9.6 (units (unkno wn) date) unknown) (unknown) (no (unknown) (unknown) WBC (units (unkno wn) date) unknown) (unknown) (no (unknown) (unknown) [Embedded Image (units (unknown) date) Not Available] unknown) (unknown) (no (unknown) (unknown) [From Prevnar] (units (unknown) date) and feet x unknown) (unknown) (no (unknown) (unknown) a recent 30 lb (units (unknown) date) weight loss, and unknown) night sweats with a shuffling gait x6 weeks. He (unknown) (no (unknown) (unknown) after. (units (unkno wn) date) unknown) (unknown) (no (unknown) (unknown) albumin 3.1, CK (units (unknown) date) 53, initial unknown) troponin negative, BNP 1430. EKG atrial sensed (unknown) (no (unknown) (unknown) alcohol intake (units (unknown) date) frequency a few unknown) times a month (unknown) (no (unknown) (unknown) also nonspecific (units (unknown) date) and the unknown) differential also includes neoplastic processes as well (unknown) (no (unknown) (unknown) amlodipine 5 mg (units (unknown) date) tablet 5 mg PO unknown) DAILY 06/16/22 06/16/22 History (unknown) (no (unknown) (unknown) and intact (units (unk nown) date) without rashes, unknown) ulcerations or petechiae. (unknown) (no (unknown) (unknown) and place, but a (units (unknown) date) very poor unknown) historian, stated that 'he came in today by himself (unknown) (no (unknown) (unknown) and surgical (units (u nknown) date) interventions and unknown) increases the chances of poor outcomes such as (unknown) (no (unknown) (unknown) antibiotics for (units (unknown) date) treatment of UTI, unknown) monitoring intermittent uncontrolled atrial (unknown) (no (unknown) (unknown) apixaban 5 mg (units ( unknown) date) tablet (Eliquis) 5 unknown) mg PO BID blood thinner 06/16/22 06/16/22 (unknown) (no (unknown) (unknown) appears is no (units ( unknown) date) distress at this unknown) time, no apparent jaundice, right upper quadrant (unknown) (no (unknown) (unknown) are present in (units (unknown) date) all 4 quadrants unknown) without guarding or rebound, no CVA tenderness. (unknown) (no (unknown) (unknown) as infectious (units ( unknown) date) etiologies such as unknown) micro abscesses (unknown) (no (unknown) (unknown) attitude thought (units (unknown) date) context and unknown) judgment are inappropriate- confused, poor (unknown) (no (unknown) (unknown) because he had (units (unknown) date) black urine this unknown) morning'. He did not recall seeing Dr. Gillette, (unknown) (no (unknown) (unknown) bruit, no cardiac (units (unknown) date) pulsations unknown) present. (unknown) (no (unknown) (unknown) cardiology's (units (u nknown) date) office due to unknown) deteriorating health concerns. patient admitted for (unknown) (no (unknown) (unknown) cardiology's (units (u nknown) date) office due to his unknown) significant presentation of cachexia, weakness, (unknown) (no (unknown) (unknown) care inpatient (units (unknown) date) hospital unknown) management for sepsis, transaminitis, UTI. The patient (unknown) (no (unknown) (unknown) clear and mucous (units (unknown) date) membranes are dry. unknown) Neck is supple and symmetric, trachea is (unknown) (no (unknown) (unknown) complications in (units (unknown) date) relation to acute unknown) illness of sepsis, UTI, transaminase, high (unknown) (no (unknown) (unknown) conjugate to of (units (unknown) date) hands unknown) (unknown) (no (unknown) (unknown) demonstrated (units (u nknown) date) bibasilar unknown) infiltrates versus inflammatory pulmonary opacities mild (unknown) (no (unknown) (unknown) diagnostic (units (unk nown) date) imaging, and unknown) laboratory results. (unknown) (no (unknown) (unknown) difficulty, (units (un known) date) struggles slightly unknown) with given directions. Patient has no WBC, but (unknown) (no (unknown) (unknown) dilated. (units (unkno wn) date) unknown) (unknown) (no (unknown) (unknown) distress at this (units (unknown) date) time. unknown) (unknown) (no (unknown) (unknown) documented and/or (units (unknown) date) surrogate decision unknown) maker is listed in the patient's medical (unknown) (no (unknown) (unknown) fibrillation, (units ( unknown) date) further unknown) imaging/lab studies and surgical consult regarding (unknown) (no (unknown) (unknown) fluticasone (units (un known) date) propionate 44 44 unknown) mcg inhalation DAILY 06/16/22 06/16/22 History (unknown) (no (unknown) (unknown) for mild sepsis, (units (unknown) date) transaminitis, unknown) UTI, encephalopathy. (unknown) (no (unknown) (unknown) gabapentin 300 mg (units (unknown) date) capsule 300 mg PO unknown) BID 06/16/22 06/16/22 History (unknown) (no (unknown) (unknown) historian. (units (unk nown) date) unknown) (unknown) (no (unknown) (unknown) home, also needs (units (unknown) date) goals of care unknown) discussion. (unknown) (no (unknown) (unknown) infection. (units (unk nown) date) Numerous small unknown) hypoattenuating lesions throughout the spleen are (unknown) (no (unknown) (unknown) intake and (units (unk nown) date) nutrition. unknown) (unknown) (no (unknown) (unknown) is at much higher (units (unknown) date) risk for medical unknown) and surgical complications because of his (unknown) (no (unknown) (unknown) left shiftneut (units (unknown) date) 8200, initial unknown) lactate 4.3, repeat 2.7, procalcitonin 3.27, PT (unknown) (no (unknown) (unknown) lesions (units (unkno wn) date) throughout the unknown) liver, as well as multifocal hepatocellular carcinoma or (unknown) (no (unknown) (unknown) loss, night (units (un known) date) sweats, shuffling unknown) gait x6 weeks. (unknown) (no (unknown) (unknown) malaise, balance (units (unknown) date) coordination unknown) issues, and concerns for neoplastic syndrome with (unknown) (no (unknown) (unknown) malnutrition. (units ( unknown) date) These factors unknown) increase the difficulty and complexity of medical (unknown) (no (unknown) (unknown) markers. (units (unkno wn) date) unknown) (unknown) (no (unknown) (unknown) mcg/actuation HFA (units (unknown) date) aerosol inhaler unknown) (unknown) (no (unknown) (unknown) medication (units (unk nown) date) reconciliation unknown) accurately. (unknown) (no (unknown) (unknown) midline, no (units (un known) date) adenopathy, no unknown) thyroid enlargement, nontender, no masses palpated. (unknown) (no (unknown) (unknown) mild sepsis, (units (u nknown) date) transaminitis, unknown) UTI, encephalopathy. This patient requires acute (unknown) (no (unknown) (unknown) morbidity and (units ( unknown) date) mortality. Patient unknown) will require rehydration for sepsis, IV (unknown) (no (unknown) (unknown) obtain HPI, ROS, (units (unknown) date) or medication unknown) reconciliation. Patient denies any pain, and (unknown) (no (unknown) (unknown) obvious (units (unkno wn) date) deformity, unknown) crepitus, effusions, cyanosis, clubbing or edema present. (unknown) (no (unknown) (unknown) on room air. (units (u nknown) date) unknown) (unknown) (no (unknown) (unknown) opacities mild to (units (unknown) date) moderate right unknown) greater than left pulmonary effusion. (unknown) (no (unknown) (unknown) or labored (units (unk nown) date) breathing, mildly unknown) tachypneic. 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 Gillette (unknown) (no (unknown) (unknown) pain, or fever. (units (unknown) date) unknown) (unknown) (no (unknown) (unknown) pneumococcal (units (u nknown) date) 7-valent AdvReac unknown) Intermediate swelling Verified 06/16/22 12:46 (unknown) (no (unknown) (unknown) present on (units (unk nown) date) admission unknown) (unknown) (no (unknown) (unknown) record. (units (unkno wn) date) unknown) (unknown) (no (unknown) (unknown) residual>500cc (units (unknown) date) place [facility] unknown) (unknown) (no (unknown) (unknown) retrocardiac (units (u nknown) date) opacities unknown) (unknown) (no (unknown) (unknown) sensation to (units (u nknown) date) touch intact, no unknown) gross deficits noted of cranial nerves. (unknown) (no (unknown) (unknown) sepsis UTI, and (units (unknown) date) transaminitis, unknown) expected length of stay greater than 2 midnights. (unknown) (no (unknown) (unknown) significantly (units ( unknown) date) hypovolemic. unknown) (unknown) (no (unknown) (unknown) suspicion for (units ( unknown) date) metastatic unknown) disease/chronic illness atrial fibrillation and HTN. (unknown) (no (unknown) (unknown) tachycardia with (units (unknown) date) heart rates unknown) 111-154, and tachypneic respiratory rate in the (unknown) (no (unknown) (unknown) the chances poor (units (unknown) date) outcomes such as unknown) mortality and morbidity as well as impaired (unknown) (no (unknown) (unknown) the patient's (units ( unknown) date) current unknown) medications. (unknown) (no (unknown) (unknown) to moderate right (units (unknown) date) greater than left unknown) pulmonary effusion. SOFA:2 patient admitted (unknown) (no (unknown) (unknown) today; this time (units (unknown) date) is exclusive of unknown) procedural time. (unknown) (no (unknown) (unknown) transaminitis-wor (units (unknown) date) kup results will unknown) direct plan of care/goals for discharge, as (unknown) (no (unknown) (unknown) unsure if this is (units (unknown) date) the patient's unknown) baseline. Due to cognitive impairment unable to (unknown) (no (unknown) (unknown) ventricular paced (units (unknown) date) rhythm rate 72, unknown) abnormal. COVID, influenza a/B/RSV negative. (unknown) (no (unknown) (unknown) verify (units (unkno wn) date) medications in the unknown) morning (unknown) (no (unknown) (unknown) was brought into (units (unknown) date) the ED by his unknown) . In ED patient demonstrated escalating (unknown) (no (unknown) (unknown) well as consult (units (unknown) date) evaluations by unknown) PT/OT/POWDER EXPERT. (unknown) (no (unknown) (unknown) wheezes, rhonchi, (units (unknown) date) or rales. unknown) (unknown) (no (unknown) (unknown) wound healing, (units (unknown) date) and immune unknown) suppression. Result panel 225 (unknown) (no (unknown) (unknown) (no value) (units (unk nown) date) unknown) (unknown) (no (unknown) (unknown) (Flovent HFA) (units ( unknown) date) unknown) (unknown) (no (unknown) (unknown) (past 8 hours): (units (unknown) date) unknown) (unknown) (no (unknown) (unknown) ADDENDUM (units (u nknown) date) unknown) (unknown) (no (unknown) (unknown) -BLD/Urine (units (unk nown) date) culture pending unknown) (unknown) (no (unknown) (unknown) -Chest CT (units (unkn own) date) demonstrated unknown) bibasilar infiltrates versus inflammatory pulmonary (unknown) (no (unknown) (unknown) -[id number] cc/HR (units (unknown) date) unknown) (unknown) (no (unknown) (unknown) -ED:heart rates (units (unknown) date) 111-154, and unknown) tachypneic respiratory rate in the 20s. (1L bolus) (unknown) (no (unknown) (unknown) -EKG atrial (units (un known) date) sensed ventricular unknown) paced rhythm rate 72, abnormal. (unknown) (no (unknown) (unknown) -GGT 516 -Ordered (units (unknown) date) RT upper Quad U/S unknown) tomorrow -will order MRCP if bile ducts are (unknown) (no (unknown) (unknown) -I personally (units ( unknown) date) reviewed imaging unknown) studies: CXR ?Possible mild right and (unknown) (no (unknown) (unknown) -I personally (units (u nknown) date) reviewed: unknown) ABD/Pelvis CT:?Multiple ill-defined hypoattenuating mass (unknown) (no (unknown) (unknown) -Monitor (units (unkno wn) date) electrolytes unknown) (unknown) (no (unknown) (unknown) -Monitor for (units (u nknown) date) neurological unknown) changes, toxic metabolic encephalopathy (unknown) (no (unknown) (unknown) -[id number] checks (units (unknown) date) while NPO Only unknown) (unknown) (no (unknown) (unknown) -Negative Fever, (units (unknown) date) jaundice, right unknown) upper quadrant pain (unknown) (no (unknown) (unknown) -Ordered: CRP, (units (unknown) date) ESR, AFP, EPO, unknown) hepatitis panel-trend LFT's, and inflammatory (unknown) (no (unknown) (unknown) -R Factor: 0.4 (units (unknown) date) cholestatic unknown) injury- Ordered ABD/P CT (unknown) (no (unknown) (unknown) -SOFA:2 (units (unkno wn) date) unknown) (unknown) (no (unknown) (unknown) -Sodium 135, BUN (units (unknown) date) 34, glucose 146, unknown) calcium 8.1, magnesium 2.6, phosphorus 4.1, (unknown) (no (unknown) (unknown) -Suspect (units (unkno wn) date) dehydration-patien unknown) t appears severely volume depleted (unknown) (no (unknown) (unknown) -WBC neg, neut# (units (unknown) date) 8200, initial unknown) lactate 4.3, repeat 2.7, procalcitonin 3.27, (unknown) (no (unknown) (unknown) -Weakness, (units (unk nown) date) deconditioning unknown) (unknown) (no (unknown) (unknown) -admit BP 149/78, (units (unknown) date) tachycardic heart unknown) rate 154, tachypneic R 29, O2 saturation 98% (unknown) (no (unknown) (unknown) -as evidence by (units (unknown) date) BMI 22.2-no unknown) records for comparison. (unknown) (no (unknown) (unknown) -bladder scans as (units (unknown) date) needed, postvoid unknown) residual >500cc -straight cath, 2nd postvoid (unknown) (no (unknown) (unknown) -cachexia, (units (unk nown) date) weakness, malaise unknown) balance coordination issues, recent 30 lb weight (unknown) (no (unknown) (unknown) -consult for (units (u nknown) date) PT/OT/POWDER EXPERT-social unknown) work: Concerned patient is not safe to return (unknown) (no (unknown) (unknown) -continue Eliquis (units (unknown) date) unknown) (unknown) (no (unknown) (unknown) -continue (units (unkn own) date) amlodipine-was unknown) unable to contact patient's , we will need to (unknown) (no (unknown) (unknown) -dietary consult (units (unknown) date) ordered to unknown) evaluate and implement steps to improve caloric (unknown) (no (unknown) (unknown) -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 (unknown) (no (unknown) (unknown) -initial troponin (units (unknown) date) negative (trend unknown) x3), BNP 1430-patient has no edema and appear (unknown) (no (unknown) (unknown) -initiated Zosyn (units (unknown) date) unknown) (unknown) (no (unknown) (unknown) -last echo in our (units (unknown) date) records to of 2018 unknown) EF 55-60% (unknown) (no (unknown) (unknown) -monitor for (units (u nknown) date) septic shock unknown) (unknown) (no (unknown) (unknown) -monitor for (units (u nknown) date) starvation ketosis unknown) (unknown) (no (unknown) (unknown) -ordered 1L bolus (units (unknown) date) followed by unknown) [id number] cc/HR (unknown) (no (unknown) (unknown) -pain and (units (unkn own) date) antiemetic unknown) management (unknown) (no (unknown) (unknown) -patient's (units (unk nown) date) malnutrition unknown) places them at high risk for medical and surgical (unknown) (no (unknown) (unknown) -phosphorus 4.1, (units (unknown) date) bili 2.1, AST 61, unknown) ALT 63, alk-phos 428, total protein 5.8,PT (unknown) (no (unknown) (unknown) -placed general (units (unknown) date) surgery consult unknown) Dr. Turner (unknown) (no (unknown) (unknown) -positive nitrate (units (unknown) date) urinalysis culture unknown) pending, transaminitis (unknown) (no (unknown) (unknown) -strict fall (units (u nknown) date) precautions, bed unknown) alarm, keep door open for observation (unknown) (no (unknown) (unknown) -urinalysis (units (un known) date) brown, positive unknown) for protein, ketones, nitrites, bili 3+, leuks, RBC (unknown) (no (unknown) (unknown) [id number] (units (unkno wn) date) unknown) (unknown) (no (unknown) (unknown) 06/16/22 06/16/22 (units (unknown) date) 06/16/22 unknown) (unknown) (no (unknown) (unknown) 06/16/22 06/16/22 (units (unknown) date) unknown) (unknown) (no (unknown) (unknown) 06/16/22 12:35 (units (unknown) date) unknown) (unknown) (no (unknown) (unknown) 06/16/22 (units (unkno wn) date) unknown) (unknown) (no (unknown) (unknown) 06/17/22 0211 (units ( unknown) date) unknown) (unknown) (no (unknown) (unknown) 06/17/22 0303 (units ( unknown) date) unknown) (unknown) (no (unknown) (unknown) 0304 (units (unkno wn) date) unknown) (unknown) (no (unknown) (unknown) 1. Sepsis without (units (unknown) date) septic shock, unknown) likely hepatobiliary origin, and UTI, acute, (unknown) (no (unknown) (unknown) 1030- Culture (units (unknown) date) pending unknown) (unknown) (no (unknown) (unknown) 12:35 12:35 12:35 (units (unknown) date) unknown) (unknown) (no (unknown) (unknown) 13:15 06/16/22 (units (unknown) date) unknown) (unknown) (no (unknown) (unknown) 13:30 (units (unkno wn) date) unknown) (unknown) (no (unknown) (unknown) 13:45 06/16/22 (units (unknown) date) unknown) (unknown) (no (unknown) (unknown) 13:46 06/16/22 (units (unknown) date) unknown) (unknown) (no (unknown) (unknown) 13:46 (units (unkno wn) date) unknown) (unknown) (no (unknown) (unknown) 14:00 06/16/22 (units (unknown) date) unknown) (unknown) (no (unknown) (unknown) 14:24 (units (unkno wn) date) unknown) (unknown) (no (unknown) (unknown) 14:30 06/16/22 (units (unknown) date) unknown) (unknown) (no (unknown) (unknown) 14:45 06/16/22 (units (unknown) date) unknown) (unknown) (no (unknown) (unknown) 15:00 (units (unkno wn) date) unknown) (unknown) (no (unknown) (unknown) 15:15 06/16/22 (units (unknown) date) unknown) (unknown) (no (unknown) (unknown) 15:30 06/16/22 (units (unknown) date) unknown) (unknown) (no (unknown) (unknown) 15:30 17:55 (units (un known) date) unknown) (unknown) (no (unknown) (unknown) 15:34 06/16/22 (units (unknown) date) unknown) (unknown) (no (unknown) (unknown) 15:34 (units (unkno wn) date) unknown) (unknown) (no (unknown) (unknown) 15:45 06/16/22 (units (unknown) date) unknown) (unknown) (no (unknown) (unknown) 15:45 (units (unkno wn) date) unknown) (unknown) (no (unknown) (unknown) 16:00 06/16/22 (units (unknown) date) unknown) (unknown) (no (unknown) (unknown) 16:15 06/16/22 (units (unknown) date) unknown) (unknown) (no (unknown) (unknown) 16:15 (units (unkno wn) date) unknown) (unknown) (no (unknown) (unknown) 16:30 06/16/22 (units (unknown) date) unknown) (unknown) (no (unknown) (unknown) 16:31 06/16/22 (units (unknown) date) unknown) (unknown) (no (unknown) (unknown) 16:31 (units (unkno wn) date) unknown) (unknown) (no (unknown) (unknown) 16:45 06/16/22 (units (unknown) date) unknown) (unknown) (no (unknown) (unknown) 17.6, INR 1.5, (units (unknown) date) PTT 38 unknown) (unknown) (no (unknown) (unknown) 17.6, INR 1.5, (units (unknown) date) PTT 38. Sodium unknown) 135, BUN 34, glucose 146, calcium 8.1, magnesium (unknown) (no (unknown) (unknown) 17:00 06/16/22 (units (unknown) date) unknown) (unknown) (no (unknown) (unknown) 17:00 (units (unkno wn) date) unknown) (unknown) (no (unknown) (unknown) 17:15 06/16/22 (units (unknown) date) unknown) (unknown) (no (unknown) (unknown) 17:15 (units (unkno wn) date) unknown) (unknown) (no (unknown) (unknown) 17:30 06/16/22 (units (unknown) date) unknown) (unknown) (no (unknown) (unknown) 17:45 (units (unkno wn) date) unknown) (unknown) (no (unknown) (unknown) 17:46 06/16/22 (units (unknown) date) unknown) (unknown) (no (unknown) (unknown) 17:59 (units (unkno wn) date) unknown) (unknown) (no (unknown) (unknown) 18:00 06/16/22 (units (unknown) date) unknown) (unknown) (no (unknown) (unknown) 18:01 06/16/22 (units (unknown) date) unknown) (unknown) (no (unknown) (unknown) 18:15 06/16/22 (units (unknown) date) unknown) (unknown) (no (unknown) (unknown) 18:15 (units (unkno wn) date) unknown) (unknown) (no (unknown) (unknown) 18:30 06/16/22 (units (unknown) date) unknown) (unknown) (no (unknown) (unknown) 18:30 (units (unkno wn) date) unknown) (unknown) (no (unknown) (unknown) 18:45 06/16/22 (units (unknown) date) unknown) (unknown) (no (unknown) (unknown) 19:00 06/16/22 (units (unknown) date) unknown) (unknown) (no (unknown) (unknown) 19:00 (units (unkno wn) date) unknown) (unknown) (no (unknown) (unknown) 19:15 06/16/22 (units (unknown) date) unknown) (unknown) (no (unknown) (unknown) 19:15 (units (unkno wn) date) unknown) (unknown) (no (unknown) (unknown) 19:30 06/16/22 (units (unknown) date) unknown) (unknown) (no (unknown) (unknown) 19:45 06/16/22 (units (unknown) date) unknown) (unknown) (no (unknown) (unknown) 19:45 (units (unkno wn) date) unknown) (unknown) (no (unknown) (unknown) 2. Transaminitis, (units (unknown) date) with elevated unknown) alkaline phosphate, acute, present on admission (unknown) (no (unknown) (unknown) 2.6, phosphorus (units (unknown) date) 4.1, bili 2.1, AST unknown) 61, ALT 63, alk-phos 428, total protein 5.8, (unknown) (no (unknown) (unknown) 20:00 06/16/22 (units (unknown) date) unknown) (unknown) (no (unknown) (unknown) 20:00 (units (unkno wn) date) unknown) (unknown) (no (unknown) (unknown) 20:15 06/16/22 (units (unknown) date) unknown) (unknown) (no (unknown) (unknown) 20:30 06/16/22 (units (unknown) date) unknown) (unknown) (no (unknown) (unknown) 20:30 (units (unkno wn) date) unknown) (unknown) (no (unknown) (unknown) 20:45 06/16/22 (units (unknown) date) unknown) (unknown) (no (unknown) (unknown) 20:46 06/16/22 (units (unknown) date) unknown) (unknown) (no (unknown) (unknown) 20:46 (units (unkno wn) date) unknown) (unknown) (no (unknown) (unknown) 20:55 (units (unkno wn) date) unknown) (unknown) (no (unknown) (unknown) 20s. During admit (units (unknown) date) interview patient unknown) is pleasantly confused orientated to self (unknown) (no (unknown) (unknown) 3. UTI, acute, (units (unknown) date) present on unknown) admission (unknown) (no (unknown) (unknown) 4 mos (units (unkno wn) date) unknown) (unknown) (no (unknown) (unknown) 4. (units (unkno wn) date) Encephalopathy/cog unknown) nitive impairment, unclear if this is chronic or acute, (unknown) (no (unknown) (unknown) 5. Essential (units (u nknown) date) hypertension, unknown) chronic, present on admission (unknown) (no (unknown) (unknown) 6. Atrial (units (unkn own) date) fibrillation, with unknown) pacemaker, on chronic Eliquis, acute on chronic, (unknown) (no (unknown) (unknown) 7. Malnutrition, (units (unknown) date) mild, acute on unknown) chronic, present on admission (unknown) (no (unknown) (unknown) 98% on room air. (units (unknown) date) Patient did get up unknown) and ambulate to the restroom w/MA without (unknown) (no (unknown) (unknown) A1C 5.8% (units (unkno wn) date) unknown) (unknown) (no (unknown) (unknown) ALT 63 H (units (unkno wn) date) unknown) (unknown) (no (unknown) (unknown) ALT (units (unkno wn) date) unknown) (unknown) (no (unknown) (unknown) APTT 38 H (units (unkn own) date) unknown) (unknown) (no (unknown) (unknown) APTT (units (unkno wn) date) unknown) (unknown) (no (unknown) (unknown) AST 61 H (units (unkno wn) date) unknown) (unknown) (no (unknown) (unknown) AST (units (unkno wn) date) unknown) (unknown) (no (unknown) (unknown) Abdomen: Soft (units ( unknown) date) nontender, unknown) negative for organomegaly, or masses. Bowel sounds (unknown) (no (unknown) (unknown) Addendum (units (unkno wn) date) Documented By: unknown) Hawa Michael (unknown) (no (unknown) (unknown) Addendum Signed (units (unknown) date) By: unknown) <Electronically signed by Hawa Garcia (unknown) (no (unknown) (unknown) Age/Sex: 86 / M (units (unknown) date) unknown) (unknown) (no (unknown) (unknown) Albumin 3.1 L (units ( unknown) date) unknown) (unknown) (no (unknown) (unknown) Albumin (units (unkno wn) date) unknown) (unknown) (no (unknown) (unknown) Albumin/Globulin (units (unknown) date) Ratio 1.1 unknown) (unknown) (no (unknown) (unknown) Albumin/Globulin (units (unknown) date) Ratio unknown) (unknown) (no (unknown) (unknown) Alkaline (units (unkno wn) date) Phosphatase 428 H unknown) (unknown) (no (unknown) (unknown) Alkaline (units (unkno wn) date) Phosphatase unknown) (unknown) (no (unknown) (unknown) Allergies (units (unkn own) date) unknown) (unknown) (no (unknown) (unknown) Allergy/AdvReac (units (unknown) date) Type Severity unknown) Reaction Status Date / Time (unknown) (no (unknown) (unknown) Assessment + Plan (units (unknown) date) narrative: unknown) (unknown) (no (unknown) (unknown) Assessment + Plan (units (unknown) date) unknown) (unknown) (no (unknown) (unknown) Asthma (units (unkno wn) date) unknown) (unknown) (no (unknown) (unknown) Atrial (units (unkno wn) date) fibrillation unknown) (unknown) (no (unknown) (unknown) BUN 34 H (units (unkno wn) date) unknown) (unknown) (no (unknown) (unknown) BUN (units (unkno wn) date) unknown) (unknown) (no (unknown) (unknown) BUN/Creatinine (units (unknown) date) Ratio 34.3 H unknown) (unknown) (no (unknown) (unknown) BUN/Creatinine (units (unknown) date) Ratio unknown) (unknown) (no (unknown) (unknown) Based on further (units (unknown) date) findings-have unknown) stopped Eliquis, and consideration should be (unknown) (no (unknown) (unknown) Baso # (Auto) 100 (units (unknown) date) unknown) (unknown) (no (unknown) (unknown) Baso # (Auto) (units ( unknown) date) unknown) (unknown) (no (unknown) (unknown) Baso % (Auto) 0.8 (units (unknown) date) unknown) (unknown) (no (unknown) (unknown) Baso % (Auto) (units ( unknown) date) unknown) (unknown) (no (unknown) (unknown) Blood Pressure (units (unknown) date) 141/57 H unknown) (unknown) (no (unknown) (unknown) Blood Pressure (units (unknown) date) 141/73 H unknown) (unknown) (no (unknown) (unknown) Blood Pressure (units (unknown) date) 142/65 H 156/70 H unknown) (unknown) (no (unknown) (unknown) Blood Pressure (units (unknown) date) 142/67 H unknown) (unknown) (no (unknown) (unknown) Blood Pressure (units (unknown) date) 143/67 H unknown) (unknown) (no (unknown) (unknown) Blood Pressure (units (unknown) date) 145/69 H unknown) (unknown) (no (unknown) (unknown) Blood Pressure (units (unknown) date) 146/69 H unknown) (unknown) (no (unknown) (unknown) Blood Pressure (units (unknown) date) 147/71 H 150/72 H unknown) (unknown) (no (unknown) (unknown) Blood Pressure (units (unknown) date) 149/68 H 130/59 L unknown) (unknown) (no (unknown) (unknown) Blood Pressure (units (unknown) date) 149/78 H 155/70 H unknown) (unknown) (no (unknown) (unknown) Blood Pressure (units (unknown) date) 150/73 H unknown) (unknown) (no (unknown) (unknown) Blood Pressure (units (unknown) date) 151/72 H unknown) (unknown) (no (unknown) (unknown) Blood Pressure (units (unknown) date) 154/73 H unknown) (unknown) (no (unknown) (unknown) Blood Pressure (units (unknown) date) 156/72 H 151/72 H unknown) (unknown) (no (unknown) (unknown) Blood Pressure (units (unknown) date) 162/114 H unknown) (unknown) (no (unknown) (unknown) Blood Pressure (units (unknown) date) 164/94 H 164/96 H unknown) (unknown) (no (unknown) (unknown) Blood Pressure (units (unknown) date) 179/74 H 179/94 H unknown) (unknown) (no (unknown) (unknown) Blood Pressure (units (unknown) date) 186/112 H 169/75 H unknown) (unknown) (no (unknown) (unknown) Blood Pressure (units (unknown) date) unknown) (unknown) (no (unknown) (unknown) CK-MB (CK-2) Rel (units (unknown) date) Index TNP unknown) (unknown) (no (unknown) (unknown) CK-MB (CK-2) Rel (units (unknown) date) Index unknown) (unknown) (no (unknown) (unknown) CK-MB (CK-2) TNP (units (unknown) date) unknown) (unknown) (no (unknown) (unknown) CK-MB (CK-2) (units (u nknown) date) unknown) (unknown) (no (unknown) (unknown) COVID PCR: (units (unk nown) date) Negative unknown) (unknown) (no (unknown) (unknown) COVID, influenza (units (unknown) date) a/B/RSV negative unknown) (unknown) (no (unknown) (unknown) Calcium 8.1 L (units ( unknown) date) unknown) (unknown) (no (unknown) (unknown) Calcium (units (unkno wn) date) unknown) (unknown) (no (unknown) (unknown) Carbon Dioxide 28 (units (unknown) date) unknown) (unknown) (no (unknown) (unknown) Carbon Dioxide (units (unknown) date) unknown) (unknown) (no (unknown) (unknown) Cardio: regular (units (unknown) date) rate and rhythm unknown) without murmur, rubs, or gallops, no carotid (unknown) (no (unknown) (unknown) Chest: Equal (units (u nknown) date) expansion, unknown) positive kyphoscoliosis, no nasal flaring, retractions, (unknown) (no (unknown) (unknown) Chief complaint: (units (unknown) date) Pain near unknown) pacemaker (unknown) (no (unknown) (unknown) Chloride 99 (units (un known) date) unknown) (unknown) (no (unknown) (unknown) Chloride (units (unkno wn) date) unknown) (unknown) (no (unknown) (unknown) Chronic (units (unkno wn) date) anticoagulation unknown) (unknown) (no (unknown) (unknown) Code status:Full (units (unknown) date) unknown) (unknown) (no (unknown) (unknown) Creatinine 0.99 (units (unknown) date) unknown) (unknown) (no (unknown) (unknown) Creatinine (units (unk nown) date) unknown) (unknown) (no (unknown) (unknown) Critical Care (units ( unknown) date) time: unknown) (unknown) (no (unknown) (unknown) : 1935 (units (unknown) date) Acct:[id number] unknown) (unknown) (no (unknown) (unknown) DVT/VTE (units (unkno wn) date) prophylaxis: unknown) Eliquis, and SCDs (unknown) (no (unknown) (unknown) Date Patient (units (u nknown) date) Seen: 06/16/22 unknown) (unknown) (no (unknown) (unknown) Date of Service: (units (unknown) date) 06/16/22 unknown) (unknown) (no (unknown) (unknown) Disposition: (units (u nknown) date) Patient admitted unknown) to acute care for evaluation and treatment of (unknown) (no (unknown) (unknown) Yoseph Cardoso is (units (unknown) date) a 86-year-old male unknown) with a history of atrial fibrillation, with (unknown) (no (unknown) (unknown) Due to patient's (units (unknown) date) cognitive unknown) impairment/encepha lopathy unable to obtain HPI, ROS, (unknown) (no (unknown) (unknown) Environment (units (un known) date) unknown) (unknown) (no (unknown) (unknown) Eos # (Auto) 0 (units (unknown) date) unknown) (unknown) (no (unknown) (unknown) Eos # (Auto) (units (u nknown) date) unknown) (unknown) (no (unknown) (unknown) Eos % (Auto) 0.1 (units (unknown) date) L unknown) (unknown) (no (unknown) (unknown) Eos % (Auto) (units (u nknown) date) unknown) (unknown) (no (unknown) (unknown) Essential (units (unkn own) date) hypertension unknown) (unknown) (no (unknown) (unknown) Estimated GFR > (units (unknown) date) 60 unknown) (unknown) (no (unknown) (unknown) Estimated GFR (units ( unknown) date) unknown) (unknown) (no (unknown) (unknown) Exam Narrative: (units (unknown) date) unknown) (unknown) (no (unknown) (unknown) Exam (units (unkno wn) date) unknown) (unknown) (no (unknown) (unknown) Family + Social (units (unknown) date) History unknown) (unknown) (no (unknown) (unknown) Family History (units (unknown) date) (Reviewed 06/17/22 unknown) @ 00:47 by Hawa Micheal [facility]) (unknown) (no (unknown) (unknown) Father (units (unknown) date) Diabetes mellitus unknown) (unknown) (no (unknown) (unknown) Feels Safe in (units ( unknown) date) Current Yes, unknown) patient lives at home with his . (unknown) (no (unknown) (unknown) Full range of (units ( unknown) date) motion intact unknown) radial and pedal pulses are normal. (unknown) (no (unknown) (unknown) General: Patient (units (unknown) date) is a pleasantly unknown) confused cachectic, frail, elderly male, in no (unknown) (no (unknown) (unknown) Globulin 2.7 (units (u nknown) date) unknown) (unknown) (no (unknown) (unknown) Globulin (units (unkno wn) date) unknown) (unknown) (no (unknown) (unknown) Glucose 146 H (units ( unknown) date) unknown) (unknown) (no (unknown) (unknown) Glucose (units (unkno wn) date) unknown) (unknown) (no (unknown) (unknown) HEENT: (units (unkno wn) date) Normocephalic, unknown) atraumatic, extraocular muscles intact, oral pharynx is (unknown) (no (unknown) (unknown) Hct 46.6 (units (unkno wn) date) unknown) (unknown) (no (unknown) (unknown) Hct (units (unkno wn) date) unknown) (unknown) (no (unknown) (unknown) Head CT negative. 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 (unknown) (no (unknown) (unknown) History (units (unkno wn) date) unknown) (unknown) (no (unknown) (unknown) Home Medications (units (unknown) date) and Allergies unknown) (unknown) (no (unknown) (unknown) Home Medications (units (unknown) date) unknown) (unknown) (no (unknown) (unknown) I confirmed that (units (unknown) date) the patient's unknown) advanced care plan is present, Code status is (unknown) (no (unknown) (unknown) I have personally (units (unknown) date) reviewed patient's unknown) chart notes from PCP, specialists, (unknown) (no (unknown) (unknown) I have utilized (units (unknown) date) all available unknown) immediate resources to obtain, update, or review (unknown) (no (unknown) (unknown) I spent a total (units (unknown) date) of [] minutes of unknown) critical care time on this patient's care (unknown) (no (unknown) (unknown) INR 1.5 H (units (unkn own) date) unknown) (unknown) (no (unknown) (unknown) INR (units (unkno wn) date) unknown) (unknown) (no (unknown) (unknown) Influenza A (units (un known) date) (RT-PCR) Flu a unknown) negative (unknown) (no (unknown) (unknown) Influenza A (units (un known) date) (RT-PCR) unknown) (unknown) (no (unknown) (unknown) Influenza B (units (un known) date) (RT-PCR) Flu b unknown) negative (unknown) (no (unknown) (unknown) Influenza B (units (un known) date) (RT-PCR) unknown) (unknown) (no (unknown) (unknown) [facility] (units (unknown) date) [address] unknown) [place] [address] (unknown) (no (unknown) (unknown) Laboratory (units (unk nown) date) Results - last 24 unknown) hr (unknown) (no (unknown) (unknown) Labs (units (unkno wn) date) unknown) (unknown) (no (unknown) (unknown) Labs: (units (unkno wn) date) unknown) (unknown) (no (unknown) (unknown) Lactate 2.7 H (units ( unknown) date) unknown) (unknown) (no (unknown) (unknown) Lactate 4.3 H* (units (unknown) date) unknown) (unknown) (no (unknown) (unknown) Lactate (units (unkno wn) date) unknown) (unknown) (no (unknown) (unknown) Lipase 45 (units (unkn own) date) unknown) (unknown) (no (unknown) (unknown) Lipase (units (unkno wn) date) unknown) (unknown) (no (unknown) (unknown) Lungs: (units (unkno wn) date) Auscultation of unknown) all lung troy are clear without adventitious sounds, (unknown) (no (unknown) (unknown) Lymph # (Auto) (units (unknown) date) 400 L unknown) (unknown) (no (unknown) (unknown) Lymph # (Auto) (units (unknown) date) unknown) (unknown) (no (unknown) (unknown) Lymph % (Auto) (units (unknown) date) 4.6 L unknown) (unknown) (no (unknown) (unknown) Lymph % (Auto) (units (unknown) date) unknown) (unknown) (no (unknown) (unknown) MCH 30.4 (units (unkno wn) date) unknown) (unknown) (no (unknown) (unknown) MCH (units (unkno wn) date) unknown) (unknown) (no (unknown) (unknown) MCHC 33.0 (units (unkn own) date) unknown) (unknown) (no (unknown) (unknown) MCHC (units (unkno wn) date) unknown) (unknown) (no (unknown) (unknown) MCV 92.4 (units (unkno wn) date) unknown) (unknown) (no (unknown) (unknown) MCV (units (unkno wn) date) unknown) (unknown) (no (unknown) (unknown) Magnesium 2.6 H (units (unknown) date) unknown) (unknown) (no (unknown) (unknown) Magnesium (units (unkn own) date) unknown) (unknown) (no (unknown) (unknown) Medical History (units (unknown) date) (Updated 06/17/22 unknown) @ 00:55 by Hawa Michael [facility]) (unknown) (no (unknown) (unknown) Medication (units (unk nown) date) Instructions unknown) Recorded Confirmed Type (unknown) (no (unknown) (unknown) Meds (units (unkno wn) date) unknown) (unknown) (no (unknown) (unknown) [place] # (Auto) 900 (units (unknown) date) unknown) (unknown) (no (unknown) (unknown) [place] # (Auto) (units ( unknown) date) unknown) (unknown) (no (unknown) (unknown) [place] % (Auto) 9.4 (units (unknown) date) unknown) (unknown) (no (unknown) (unknown) [place] % (Auto) (units ( unknown) date) unknown) (unknown) (no (unknown) (unknown) Mother (units (unknown) date) No problems noted. unknown) (unknown) (no (unknown) (unknown) Musculoskeletal: (units (unknown) date) Diffuse but equal unknown) throughout all extremity muscle wasting, no (unknown) (no (unknown) (unknown) NT-Pro-B (units (unkno wn) date) Natriuret Pep 1430 unknown) H (unknown) (no (unknown) (unknown) NT-Pro-B (units (unkno wn) date) Natriuret Pep unknown) (unknown) (no (unknown) (unknown) Narrative (units (unkn own) date) unknown) (unknown) (no (unknown) (unknown) Narrative: (units (unk nown) date) unknown) (unknown) (no (unknown) (unknown) Negative for JVD (units (unknown) date) unknown) (unknown) (no (unknown) (unknown) Neuro: Alert and (units (unknown) date) orientated x2 unknown) Person + Place , moves all extremities, (unknown) (no (unknown) (unknown) Neut # (Auto) (units ( unknown) date) 8200 H unknown) (unknown) (no (unknown) (unknown) Neut # (Auto) (units ( unknown) date) unknown) (unknown) (no (unknown) (unknown) Neut % (Auto) (units ( unknown) date) 85.1 H unknown) (unknown) (no (unknown) (unknown) Neut % (Auto) (units ( unknown) date) unknown) (unknown) (no (unknown) (unknown) Objective (units (unkn own) date) unknown) (unknown) (no (unknown) (unknown) Oxygen Delivery (units (unknown) date) Method Room Air unknown) (unknown) (no (unknown) (unknown) Oxygen Delivery (units (unknown) date) Method unknown) (unknown) (no (unknown) (unknown) PT 17.6 H (units (unkn own) date) unknown) (unknown) (no (unknown) (unknown) PT (units (unkno wn) date) unknown) (unknown) (no (unknown) (unknown) Pacemaker (units (unkn own) date) unknown) (unknown) (no (unknown) (unknown) Patient History (units (unknown) date) unknown) (unknown) (no (unknown) (unknown) Patient: (units (unkno wn) date) Yoseph Cardoso unknown) MR#: [id number] (unknown) (no (unknown) (unknown) Phosphorus 4.1 H (units (unknown) date) unknown) (unknown) (no (unknown) (unknown) Phosphorus (units (unk nown) date) unknown) (unknown) (no (unknown) (unknown) Plt Count 222 (units ( unknown) date) unknown) (unknown) (no (unknown) (unknown) Plt Count (units (unkn own) date) unknown) (unknown) (no (unknown) (unknown) Potassium 4.8 (units ( unknown) date) unknown) (unknown) (no (unknown) (unknown) Potassium (units (unkn own) date) unknown) (unknown) (no (unknown) (unknown) Procalcitonin (units ( unknown) date) 3.27 H unknown) (unknown) (no (unknown) (unknown) Procalcitonin (units ( unknown) date) unknown) (unknown) (no (unknown) (unknown) Provider: (units (unkn own) date) Hawa Michael unknown) 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 (unknown) (no (unknown) (unknown) Psych: Patient (units (unknown) date) has a well-kept unknown) appearance, pleasant affect, mental status (unknown) (no (unknown) (unknown) Pulse Oximetry 93 (units (unknown) date) 100 unknown) (unknown) (no (unknown) (unknown) Pulse Oximetry 94 (units (unknown) date) 96 unknown) (unknown) (no (unknown) (unknown) Pulse Oximetry 95 (units (unknown) date) unknown) (unknown) (no (unknown) (unknown) Pulse Oximetry 96 (units (unknown) date) 91 unknown) (unknown) (no (unknown) (unknown) Pulse Oximetry 96 (units (unknown) date) 99 unknown) (unknown) (no (unknown) (unknown) Pulse Oximetry 96 (units (unknown) date) unknown) (unknown) (no (unknown) (unknown) Pulse Oximetry 97 (units (unknown) date) 96 97 unknown) (unknown) (no (unknown) (unknown) Pulse Oximetry 97 (units (unknown) date) 97 98 unknown) (unknown) (no (unknown) (unknown) Pulse Oximetry 97 (units (unknown) date) 97 unknown) (unknown) (no (unknown) (unknown) Pulse Oximetry 97 (units (unknown) date) unknown) (unknown) (no (unknown) (unknown) Pulse Oximetry 98 (units (unknown) date) 97 unknown) (unknown) (no (unknown) (unknown) Pulse Oximetry 98 (units (unknown) date) unknown) (unknown) (no (unknown) (unknown) Pulse Oximetry (units (unknown) date) unknown) (unknown) (no (unknown) (unknown) Pulse Rate 111 H (units (unknown) date) unknown) (unknown) (no (unknown) (unknown) Pulse Rate 114 H (units (unknown) date) 118 H unknown) (unknown) (no (unknown) (unknown) Pulse Rate 154 H (units (unknown) date) unknown) (unknown) (no (unknown) (unknown) Pulse Rate 72 66 (units (unknown) date) unknown) (unknown) (no (unknown) (unknown) Pulse Rate 72 71 (units (unknown) date) unknown) (unknown) (no (unknown) (unknown) Pulse Rate 72 74 (units (unknown) date) unknown) (unknown) (no (unknown) (unknown) Pulse Rate 72 (units ( unknown) date) unknown) (unknown) (no (unknown) (unknown) Pulse Rate 73 74 (units (unknown) date) unknown) (unknown) (no (unknown) (unknown) Pulse Rate 73 87 (units (unknown) date) 98 H unknown) (unknown) (no (unknown) (unknown) Pulse Rate 73 (units ( unknown) date) unknown) (unknown) (no (unknown) (unknown) Pulse Rate 74 104 (units (unknown) date) H 106 H unknown) (unknown) (no (unknown) (unknown) Pulse Rate 75 116 (units (unknown) date) H unknown) (unknown) (no (unknown) (unknown) Pulse Rate 75 70 (units (unknown) date) unknown) (unknown) (no (unknown) (unknown) Pulse Rate 75 74 (units (unknown) date) 74 unknown) (unknown) (no (unknown) (unknown) Pulse Rate 75 (units ( unknown) date) unknown) (unknown) (no (unknown) (unknown) Pulse Rate 76 (units ( unknown) date) unknown) (unknown) (no (unknown) (unknown) Pulse Rate 78 75 (units (unknown) date) unknown) (unknown) (no (unknown) (unknown) Pulse Rate 84 77 (units (unknown) date) unknown) (unknown) (no (unknown) (unknown) Pulse Rate 86 72 (units (unknown) date) unknown) (unknown) (no (unknown) (unknown) Pulse Rate 98 H (units (unknown) date) unknown) (unknown) (no (unknown) (unknown) RBC 5.05 (units (unkno wn) date) unknown) (unknown) (no (unknown) (unknown) RBC (units (unkno wn) date) unknown) (unknown) (no (unknown) (unknown) RDW 14.4 (units (unkno wn) date) unknown) (unknown) (no (unknown) (unknown) RDW (units (unkno wn) date) unknown) (unknown) (no (unknown) (unknown) RSV (PCR) (units (unkn own) date) Negative unknown) (unknown) (no (unknown) (unknown) RSV (PCR) (units (unkn own) date) unknown) (unknown) (no (unknown) (unknown) Respiratory Rate (units (unknown) date) 12 25 H unknown) (unknown) (no (unknown) (unknown) Respiratory Rate (units (unknown) date) 13 26 H unknown) (unknown) (no (unknown) (unknown) Respiratory Rate (units (unknown) date) 16 20 unknown) (unknown) (no (unknown) (unknown) Respiratory Rate (units (unknown) date) 17 26 H unknown) (unknown) (no (unknown) (unknown) Respiratory Rate (units (unknown) date) 17 unknown) (unknown) (no (unknown) (unknown) Respiratory Rate (units (unknown) date) 18 32 H unknown) (unknown) (no (unknown) (unknown) Respiratory Rate (units (unknown) date) 18 unknown) (unknown) (no (unknown) (unknown) Respiratory Rate (units (unknown) date) 19 18 unknown) (unknown) (no (unknown) (unknown) Respiratory Rate (units (unknown) date) 19 34 H 39 H unknown) (unknown) (no (unknown) (unknown) Respiratory Rate (units (unknown) date) 19 unknown) (unknown) (no (unknown) (unknown) Respiratory Rate (units (unknown) date) 20 unknown) (unknown) (no (unknown) (unknown) Respiratory Rate (units (unknown) date) 22 20 unknown) (unknown) (no (unknown) (unknown) Respiratory Rate (units (unknown) date) 23 17 16 unknown) (unknown) (no (unknown) (unknown) Respiratory Rate (units (unknown) date) 23 18 unknown) (unknown) (no (unknown) (unknown) Respiratory Rate (units (unknown) date) 24 19 unknown) (unknown) (no (unknown) (unknown) Respiratory Rate (units (unknown) date) 24 23 unknown) (unknown) (no (unknown) (unknown) Respiratory Rate (units (unknown) date) 27 H unknown) (unknown) (no (unknown) (unknown) Respiratory Rate (units (unknown) date) 29 H unknown) (unknown) (no (unknown) (unknown) Respiratory Rate (units (unknown) date) 30 H 24 unknown) (unknown) (no (unknown) (unknown) Respiratory Rate (units (unknown) date) unknown) (unknown) (no (unknown) (unknown) Review of Systems (units (unknown) date) unknown) (unknown) (no (unknown) (unknown) SARS-CoV-2 (PCR) (units (unknown) date) Negative unknown) (unknown) (no (unknown) (unknown) SARS-CoV-2 (PCR) (units (unknown) date) unknown) (unknown) (no (unknown) (unknown) Safety + (units (unkno wn) date) Behavioral: unknown) (unknown) (no (unknown) (unknown) Signed (units (unkno wn) date) By:<Electronically unknown) signed by Hawa [facility]> (unknown) (no (unknown) (unknown) Skin: Warm Very (units (unknown) date) dry, poor turgor, unknown) appears significantly dehydrated and wasting (unknown) (no (unknown) (unknown) Smoking Status (units (unknown) date) never unknown) (unknown) (no (unknown) (unknown) Sodium 135 L (units (u nknown) date) unknown) (unknown) (no (unknown) (unknown) Sodium (units (unkno wn) date) unknown) (unknown) (no (unknown) (unknown) Substance Use (units ( unknown) date) Type does not use unknown) (unknown) (no (unknown) (unknown) Surgical History (units (unknown) date) (Updated 06/16/22 unknown) @ 21:27 by CASEY Crystal) (unknown) (no (unknown) (unknown) Surrogate (units (unkn own) date) decision maker: unknown) Alehta Israelode (unknown) (no (unknown) (unknown) Temperature 98.1 (units (unknown) date) F unknown) (unknown) (no (unknown) (unknown) Temperature (units (un known) date) unknown) (unknown) (no (unknown) (unknown) This increases (units (unknown) date) the difficulty in unknown) complexity of medical management and increases (unknown) (no (unknown) (unknown) Time Patient (units (u nknown) date) Seen: 15:35 unknown) (unknown) (no (unknown) (unknown) Time Spent With (units (unknown) date) Patient unknown) (unknown) (no (unknown) (unknown) Tobacco + (units (unkn own) date) Substance use: unknown) (unknown) (no (unknown) (unknown) Total Bilirubin (units (unknown) date) 2.1 H unknown) (unknown) (no (unknown) (unknown) Total Bilirubin (units (unknown) date) unknown) (unknown) (no (unknown) (unknown) Total Creatine (units (unknown) date) Kinase 53 L unknown) (unknown) (no (unknown) (unknown) Total Creatine (units (unknown) date) Kinase unknown) (unknown) (no (unknown) (unknown) Total Protein 5.8 (units (unknown) date) L unknown) (unknown) (no (unknown) (unknown) Total Protein (units ( unknown) date) unknown) (unknown) (no (unknown) (unknown) Troponin I < (units (u nknown) date) 0.012 unknown) (unknown) (no (unknown) (unknown) Troponin I (units (unk nown) date) unknown) (unknown) (no (unknown) (unknown) Upon admit BP (units (u nknown) date) 149/78, unknown) tachycardic heart rate 154, tachypneic R 29, O2 saturation (unknown) (no (unknown) (unknown) Ur Bilirubin (units (u nknown) date) Confirm Positive H unknown) (unknown) (no (unknown) (unknown) Ur Bilirubin (units (u nknown) date) Confirm unknown) (unknown) (no (unknown) (unknown) Ur Culture (units (unk nown) date) Indicated? unknown) Specimen cultured (unknown) (no (unknown) (unknown) Ur Culture (units (unk nown) date) Indicated? unknown) (unknown) (no (unknown) (unknown) Ur Leukocyte (units (u nknown) date) Esterase Trace H unknown) (unknown) (no (unknown) (unknown) Ur Leukocyte (units (u nknown) date) Esterase unknown) (unknown) (no (unknown) (unknown) Ur Specific (units (un known) date) [place] 1.020 unknown) (unknown) (no (unknown) (unknown) Ur Specific (units (un known) date) [place] unknown) (unknown) (no (unknown) (unknown) Ur Squamous Epith (units (unknown) date) Cells 1-5 /hpf unknown) (unknown) (no (unknown) (unknown) Ur Squamous Epith (units (unknown) date) Cells unknown) (unknown) (no (unknown) (unknown) Urine Appearance (units (unknown) date) Cloudy unknown) (unknown) (no (unknown) (unknown) Urine Appearance (units (unknown) date) unknown) (unknown) (no (unknown) (unknown) Urine Bacteria (units (unknown) date) None seen unknown) (unknown) (no (unknown) (unknown) Urine Bacteria (units (unknown) date) unknown) (unknown) (no (unknown) (unknown) Urine Bilirubin (units (unknown) date) 3+ H unknown) (unknown) (no (unknown) (unknown) Urine Bilirubin (units (unknown) date) unknown) (unknown) (no (unknown) (unknown) Urine Color Brown (units (unknown) date) unknown) (unknown) (no (unknown) (unknown) Urine Color (units (un known) date) unknown) (unknown) (no (unknown) (unknown) Urine Glucose (units ( unknown) date) (UA) Negative unknown) (unknown) (no (unknown) (unknown) Urine Glucose (units ( unknown) date) (UA) unknown) (unknown) (no (unknown) (unknown) Urine Ketones 1+ (units (unknown) date) H unknown) (unknown) (no (unknown) (unknown) Urine Ketones (units ( unknown) date) unknown) (unknown) (no (unknown) (unknown) Urine Nitrate (units ( unknown) date) Positive H unknown) (unknown) (no (unknown) (unknown) Urine Nitrate (units ( unknown) date) unknown) (unknown) (no (unknown) (unknown) Urine Occult (units (u nknown) date) Blood Trace-intact unknown) (unknown) (no (unknown) (unknown) Urine Occult (units (u nknown) date) Blood unknown) (unknown) (no (unknown) (unknown) Urine Protein 1+ (units (unknown) date) H unknown) (unknown) (no (unknown) (unknown) Urine Protein (units ( unknown) date) unknown) (unknown) (no (unknown) (unknown) Urine RBC (units (unkn own) date) 10-30/hpf H unknown) (unknown) (no (unknown) (unknown) Urine RBC (units (unkn own) date) unknown) (unknown) (no (unknown) (unknown) Urine (units (unkno wn) date) Urobilinogen 1.0 unknown) (unknown) (no (unknown) (unknown) Urine (units (unkno wn) date) Urobilinogen unknown) (unknown) (no (unknown) (unknown) Urine WBC 1-5/hpf (units (unknown) date) unknown) (unknown) (no (unknown) (unknown) Urine WBC (units (unkn own) date) unknown) (unknown) (no (unknown) (unknown) Urine pH 6.5 (units (u nknown) date) unknown) (unknown) (no (unknown) (unknown) Urine pH (units (unkno wn) date) unknown) (unknown) (no (unknown) (unknown) Vital Signs (units (un known) date) unknown) (unknown) (no (unknown) (unknown) WBC 9.6 (units (unkno wn) date) unknown) (unknown) (no (unknown) (unknown) WBC (units (unkno wn) date) unknown) (unknown) (no (unknown) (unknown) [Embedded Image (units (unknown) date) Not Available] unknown) (unknown) (no (unknown) (unknown) [From Prevnar] (units (unknown) date) and feet x unknown) (unknown) (no (unknown) (unknown) a recent 30 lb (units (unknown) date) weight loss, and unknown) night sweats with a shuffling gait x6 weeks. He (unknown) (no (unknown) (unknown) after. (units (unkno wn) date) unknown) (unknown) (no (unknown) (unknown) albumin 3.1, CK (units (unknown) date) 53, initial unknown) troponin negative, BNP 1430. EKG atrial sensed (unknown) (no (unknown) (unknown) alcohol intake (units (unknown) date) frequency a few unknown) times a month (unknown) (no (unknown) (unknown) also nonspecific (units (unknown) date) and the unknown) differential also includes neoplastic processes as well (unknown) (no (unknown) (unknown) amlodipine 5 mg (units (unknown) date) tablet 5 mg PO unknown) DAILY 06/16/22 06/16/22 History (unknown) (no (unknown) (unknown) and intact (units (unk nown) date) without rashes, unknown) ulcerations or petechiae. (unknown) (no (unknown) (unknown) and place, but a (units (unknown) date) very poor unknown) historian, stated that 'he came in today by himself (unknown) (no (unknown) (unknown) and surgical (units (u nknown) date) interventions and unknown) increases the chances of poor outcomes such as (unknown) (no (unknown) (unknown) antibiotics for (units (unknown) date) treatment of UTI, unknown) monitoring intermittent uncontrolled atrial (unknown) (no (unknown) (unknown) apixaban 5 mg (units ( unknown) date) tablet (Eliquis) 5 unknown) mg PO BID blood thinner 06/16/22 06/16/22 (unknown) (no (unknown) (unknown) appears is no (units ( unknown) date) distress at this unknown) time, no apparent jaundice, right upper quadrant (unknown) (no (unknown) (unknown) are present in (units (unknown) date) all 4 quadrants unknown) without guarding or rebound, no CVA tenderness. (unknown) (no (unknown) (unknown) as infectious (units ( unknown) date) etiologies such as unknown) micro abscesses (unknown) (no (unknown) (unknown) attitude thought (units (unknown) date) context and unknown) judgment are inappropriate- confused, poor (unknown) (no (unknown) (unknown) because he had (units (unknown) date) black urine this unknown) morning'. He did not recall seeing Dr. Gillette, (unknown) (no (unknown) (unknown) bruit, no cardiac (units (unknown) date) pulsations unknown) present. (unknown) (no (unknown) (unknown) cardiology's (units (u nknown) date) office due to unknown) deteriorating health concerns. patient admitted for (unknown) (no (unknown) (unknown) cardiology's (units (u nknown) date) office due to his unknown) significant presentation of cachexia, weakness, (unknown) (no (unknown) (unknown) care inpatient (units (unknown) date) hospital unknown) management for sepsis, transaminitis, UTI. The patient (unknown) (no (unknown) (unknown) clear and mucous (units (unknown) date) membranes are dry. unknown) Neck is supple and symmetric, trachea is (unknown) (no (unknown) (unknown) complications in (units (unknown) date) relation to acute unknown) illness of sepsis, UTI, transaminase, high (unknown) (no (unknown) (unknown) conjugate to of (units (unknown) date) hands unknown) (unknown) (no (unknown) (unknown) demonstrated (units (u nknown) date) bibasilar unknown) infiltrates versus inflammatory pulmonary opacities mild (unknown) (no (unknown) (unknown) diagnostic (units (unk nown) date) imaging, and unknown) laboratory results. (unknown) (no (unknown) (unknown) difficulty, (units (un known) date) struggles slightly unknown) with given directions. Patient has no WBC, but (unknown) (no (unknown) (unknown) dilated. (units (unkno wn) date) unknown) (unknown) (no (unknown) (unknown) distress at this (units (unknown) date) time. unknown) (unknown) (no (unknown) (unknown) documented and/or (units (unknown) date) surrogate decision unknown) maker is listed in the patient's medical (unknown) (no (unknown) (unknown) fibrillation, (units ( unknown) date) further unknown) imaging/lab studies and surgical consult regarding (unknown) (no (unknown) (unknown) fluticasone (units (un known) date) propionate 44 44 unknown) mcg inhalation DAILY 06/16/22 06/16/22 History (unknown) (no (unknown) (unknown) for mild sepsis, (units (unknown) date) transaminitis, unknown) UTI, encephalopathy. (unknown) (no (unknown) (unknown) gabapentin 300 mg (units (unknown) date) capsule 300 mg PO unknown) BID 06/16/22 06/16/22 History (unknown) (no (unknown) (unknown) given to at (units (un known) date) stopping it all unknown) together. (unknown) (no (unknown) (unknown) historian. (units (unk nown) date) unknown) (unknown) (no (unknown) (unknown) home, also needs (units (unknown) date) goals of care unknown) discussion. (unknown) (no (unknown) (unknown) infection. (units (unk nown) date) Numerous small unknown) hypoattenuating lesions throughout the spleen are (unknown) (no (unknown) (unknown) intake and (units (unk nown) date) nutrition. unknown) (unknown) (no (unknown) (unknown) is at much higher (units (unknown) date) risk for medical unknown) and surgical complications because of his (unknown) (no (unknown) (unknown) left shiftneut (units (unknown) date) 8200, initial unknown) lactate 4.3, repeat 2.7, procalcitonin 3.27, PT (unknown) (no (unknown) (unknown) lesions (units (unkno wn) date) throughout the unknown) liver, as well as multifocal hepatocellular carcinoma or (unknown) (no (unknown) (unknown) loss, night (units (un known) date) sweats, shuffling unknown) gait x6 weeks. (unknown) (no (unknown) (unknown) malaise, balance (units (unknown) date) coordination unknown) issues, and concerns for neoplastic syndrome with (unknown) (no (unknown) (unknown) malnutrition. (units ( unknown) date) These factors unknown) increase the difficulty and complexity of medical (unknown) (no (unknown) (unknown) markers. (units (unkno wn) date) unknown) (unknown) (no (unknown) (unknown) mcg/actuation HFA (units (unknown) date) aerosol inhaler unknown) (unknown) (no (unknown) (unknown) medication (units (unk nown) date) reconciliation unknown) accurately. (unknown) (no (unknown) (unknown) midline, no (units (un known) date) adenopathy, no unknown) thyroid enlargement, nontender, no masses palpated. (unknown) (no (unknown) (unknown) mild sepsis, (units (u nknown) date) transaminitis, unknown) UTI, encephalopathy. This patient requires acute (unknown) (no (unknown) (unknown) morbidity and (units ( unknown) date) mortality. Patient unknown) will require rehydration for sepsis, IV (unknown) (no (unknown) (unknown) obtain HPI, ROS, (units (unknown) date) or medication unknown) reconciliation. Patient denies any pain, and (unknown) (no (unknown) (unknown) obvious (units (unkno wn) date) deformity, unknown) crepitus, effusions, cyanosis, clubbing or edema present. (unknown) (no (unknown) (unknown) on room air. (units (u nknown) date) unknown) (unknown) (no (unknown) (unknown) opacities mild to (units (unknown) date) moderate right unknown) greater than left pulmonary effusion. (unknown) (no (unknown) (unknown) or labored (units (unk nown) date) breathing, mildly unknown) tachypneic. 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 Gillette (unknown) (no (unknown) (unknown) pain, or fever. (units (unknown) date) unknown) (unknown) (no (unknown) (unknown) pneumococcal (units (u nknown) date) 7-valent AdvReac unknown) Intermediate swelling Verified 06/16/22 12:46 (unknown) (no (unknown) (unknown) present on (units (unk nown) date) admission unknown) (unknown) (no (unknown) (unknown) record. (units (unkno wn) date) unknown) (unknown) (no (unknown) (unknown) residual>500cc (units (unknown) date) place [facility] unknown) (unknown) (no (unknown) (unknown) retrocardiac (units (u nknown) date) opacities unknown) (unknown) (no (unknown) (unknown) sensation to (units (u nknown) date) touch intact, no unknown) gross deficits noted of cranial nerves. (unknown) (no (unknown) (unknown) sepsis UTI, and (units (unknown) date) transaminitis, unknown) expected length of stay greater than 2 midnights. (unknown) (no (unknown) (unknown) significantly (units ( unknown) date) hypovolemic. unknown) (unknown) (no (unknown) (unknown) suspicion for (units ( unknown) date) metastatic unknown) disease/chronic illness atrial fibrillation and HTN. (unknown) (no (unknown) (unknown) tachycardia with (units (unknown) date) heart rates unknown) 111-154, and tachypneic respiratory rate in the (unknown) (no (unknown) (unknown) the chances poor (units (unknown) date) outcomes such as unknown) mortality and morbidity as well as impaired (unknown) (no (unknown) (unknown) the patient's (units ( unknown) date) current unknown) medications. (unknown) (no (unknown) (unknown) to moderate right (units (unknown) date) greater than left unknown) pulmonary effusion. SOFA:2 patient admitted (unknown) (no (unknown) (unknown) today; this time (units (unknown) date) is exclusive of unknown) procedural time. (unknown) (no (unknown) (unknown) transaminitis-wor (units (unknown) date) kup results will unknown) direct plan of care/goals for discharge, as (unknown) (no (unknown) (unknown) unsure if this is (units (unknown) date) the patient's unknown) baseline. Due to cognitive impairment unable to (unknown) (no (unknown) (unknown) ventricular paced (units (unknown) date) rhythm rate 72, unknown) abnormal. COVID, influenza a/B/RSV negative. (unknown) (no (unknown) (unknown) verify (units (unkno wn) date) medications in the unknown) morning (unknown) (no (unknown) (unknown) vidson> 06/17/22 (units (unknown) date) unknown) (unknown) (no (unknown) (unknown) was brought into (units (unknown) date) the ED by his unknown) . In ED patient demonstrated escalating (unknown) (no (unknown) (unknown) well as consult (units (unknown) date) evaluations by unknown) PT/OT/POWDER EXPERT. (unknown) (no (unknown) (unknown) wheezes, rhonchi, (units (unknown) date) or rales. unknown) (unknown) (no (unknown) (unknown) wound healing, (units (unknown) date) and immune unknown) suppression. Result panel 226 (unknown) (no date) (unknown) (unknown) 0 /ul (unkn own) (unknown) (no date) (unknown) (unknown) 0 /ul (unkn own) (unknown) (no date) (unknown) (unknown) 0.4 % (unkn own) (unknown) (no date) (unknown) (unknown) 0.4 % (unkn own) (unknown) (no date) (unknown) (unknown) 1100 /ul (unkn own) (unknown) (no date) (unknown) (unknown) 13.3 % (unkn own) (unknown) (no date) (unknown) (unknown) 14.1 % (unkn own) (unknown) (no date) (unknown) (unknown) 15.1 g/dl (unkn own) (unknown) (no date) (unknown) (unknown) 205 x10 3/ul (unkn own) (unknown) (no date) (unknown) (unknown) 30.7 pg (unkn own) (unknown) (no date) (unknown) (unknown) 33.6 % (unkn own) (unknown) (no date) (unknown) (unknown) 4.92 x10 6/ul (unkn own) (unknown) (no date) (unknown) (unknown) 44.9 % (unkn own) (unknown) (no date) (unknown) (unknown) 600 /ul (unkn own) (unknown) (no date) (unknown) (unknown) 6400 /ul (unkn own) (unknown) (no date) (unknown) (unknown) 7.1 % (unkn own) (unknown) (no date) (unknown) (unknown) 78.8 % (unkn own) (unknown) (no date) (unknown) (unknown) 8.1 x10 3/ul (unkn own) (unknown) (no date) (unknown) (unknown) 91.4 fl (unkn own) Result panel 227 (unknown) (no date) (unknown) (unknown) < 9 umol/l (unkn own) (unknown) (no date) (unknown) (unknown) 2.1 mmol/l (unkn own) Result panel 228 (unknown) (no date) (unknown) (unknown) 362 u/l (unkn own) (unknown) (no date) (unknown) (unknown) 362 u/l (unkn own) Result panel 229 (unknown) (no date) (unknown) (unknown) 1.4 (units unknown) (unknown) (unknown) (no date) (unknown) (unknown) 16.5 seconds (unkn own) Result panel 230 (unknown) (no date) (unknown) (unknown) 9.0 mg/dl (unkn own) Result panel 231 (unknown) (no date) (unknown) (unknown) 9 mm/hr (unkn own) Result panel 232 (unknown) (no date) (unknown) (unknown) 3.6 mg/dl (unkn own) Result panel 233 (unknown) (no date) (unknown) (unknown) > 60 ml/min (unkn own) (unknown) (no date) (unknown) (unknown) > 60 ml/min (unkn own) (unknown) (no date) (unknown) (unknown) 0.89 mg/dl (unkn own) (unknown) (no date) (unknown) (unknown) 1.2 (units unknown) (unknown) (unknown) (no date) (unknown) (unknown) 100 mmol/l (unkn own) (unknown) (no date) (unknown) (unknown) 134 mmol/l (unkn own) (unknown) (no date) (unknown) (unknown) 2.2 g/dl (unkn own) (unknown) (no date) (unknown) (unknown) 2.2 mg/dl (unkn own) (unknown) (no date) (unknown) (unknown) 2.6 g/dl (unkn own) (unknown) (no date) (unknown) (unknown) 29 mg/dl (unkn own) (unknown) (no date) (unknown) (unknown) 29 mmol/l (unkn own) (unknown) (no date) (unknown) (unknown) 32.6 (units unknown) (unknown) (unknown) (no date) (unknown) (unknown) 384 u/l (unkn own) (unknown) (no date) (unknown) (unknown) 4.4 mmol/l (unkn own) (unknown) (no date) (unknown) (unknown) 4.8 g/dl (unkn own) (unknown) (no date) (unknown) (unknown) 56 iu/l (unkn own) (unknown) (no date) (unknown) (unknown) 57 iu/l (unkn own) (unknown) (no date) (unknown) (unknown) 7.8 mg/dl (unkn own) (unknown) (no date) (unknown) (unknown) 93 mg/dl (unkn own) (unknown) (no date) (unknown) (unknown) 93 mg/dl (unkn own) Result panel 234 (unknown) (no date) (unknown) (unknown) 0.015 ng/ml (unkn own) (unknown) (no date) (unknown) (unknown) 0.015 ng/ml (unkn own) Result panel 235 (unknown) (no date) (unknown) (unknown) 1200 pg/ml (unkn own) (unknown) (no date) (unknown) (unknown) 1200 pg/ml (unkn own) (unknown) (no date) (unknown) (unknown) 3.6 mg/dl (unkn own) Result panel 236 (unknown) (no date) (unknown) (unknown) 1200 pg/ml (unkn own) (unknown) (no date) (unknown) (unknown) 1200 pg/ml (unkn own) (unknown) (no date) (unknown) (unknown) 2.46 ng/ml (unkn own) (unknown) (no date) (unknown) (unknown) 2.46 ng/ml (unkn own) (unknown) (no date) (unknown) (unknown) 3.6 mg/dl (unkn own) Result panel 237 (unknown) (no date) (unknown) (unknown) 2.1 mmol/l (unkn own) Result panel 238 (unknown) (no date) (unknown) (unknown) No growth. (units (un known) unknown) Result panel 239 (unknown) (no date) (unknown) (unknown) (no value) (units (un known) unknown) (unknown) (no date) (unknown) (unknown) NO GROWTH (units (unk nown) AFTER 24 unknown) HOURS Result panel 240 (unknown) (no (unknown) (unknown) (no value) (units (unk nown) date) unknown) (unknown) (no (unknown) (unknown) (past 8 hours): (units (unknown) date) unknown) (unknown) (no (unknown) (unknown) [id number] (units (unkno wn) date) unknown) (unknown) (no (unknown) (unknown) 06/16/22 06/16/22 (units (unknown) date) 06/16/22 unknown) (unknown) (no (unknown) (unknown) 06/16/22 06/16/22 (units (unknown) date) 06/17/22 unknown) (unknown) (no (unknown) (unknown) 06/17/22 06/17/22 (units (unknown) date) 06/17/22 unknown) (unknown) (no (unknown) (unknown) 06/17/22 03:29 (units (unknown) date) unknown) (unknown) (no (unknown) (unknown) 06/17/22 1715 (units ( unknown) date) unknown) (unknown) (no (unknown) (unknown) 06/17/22 (units (unkno wn) date) unknown) (unknown) (no (unknown) (unknown) 03:29 03:29 03:29 (units (unknown) date) unknown) (unknown) (no (unknown) (unknown) 06:18 (units (unkno wn) date) unknown) (unknown) (no (unknown) (unknown) 1. Concern for (units (unknown) date) metastatic disease unknown) (unknown) (no (unknown) (unknown) 10:06 (units (unkno wn) date) unknown) (unknown) (no (unknown) (unknown) 17:55 21:57 21:57 (units (unknown) date) unknown) (unknown) (no (unknown) (unknown) 2. Sepsis (units (unkn own) date) unknown) (unknown) (no (unknown) (unknown) 21:57 21:57 03:29 (units (unknown) date) unknown) (unknown) (no (unknown) (unknown) 3. UTI (units (unkno wn) date) unknown) (unknown) (no (unknown) (unknown) 4. Acute (units (unkno wn) date) metabolic unknown) encephalopathy (unknown) (no (unknown) (unknown) 5. Essential (units (u nknown) date) hypertension unknown) (unknown) (no (unknown) (unknown) 6. Atrial (units (unkn own) date) fibrillation unknown) (unknown) (no (unknown) (unknown) 7. Malnutrition, (units (unknown) date) severe unknown) (unknown) (no (unknown) (unknown) 86-year-old male (units (unknown) date) with history of unknown) atrial fibrillation, status post pacemaker (unknown) (no (unknown) (unknown) ABD: Soft, NT/ND, (units (unknown) date) BT present in all unknown) 4 quadrants, no organomegaly or masses (unknown) (no (unknown) (unknown) ALT 57 H (units (unkno wn) date) unknown) (unknown) (no (unknown) (unknown) ALT (units (unkno wn) date) unknown) (unknown) (no (unknown) (unknown) AST 56 (units (unkno wn) date) unknown) (unknown) (no (unknown) (unknown) AST (units (unkno wn) date) unknown) (unknown) (no (unknown) (unknown) Age/Sex: 86 / M (units (unknown) date) unknown) (unknown) (no (unknown) (unknown) Albumin 2.6 L (units ( unknown) date) unknown) (unknown) (no (unknown) (unknown) Albumin (units (unkno wn) date) unknown) (unknown) (no (unknown) (unknown) Albumin/Globulin (units (unknown) date) Ratio 1.2 unknown) (unknown) (no (unknown) (unknown) Albumin/Globulin (units (unknown) date) Ratio unknown) (unknown) (no (unknown) (unknown) Alkaline (units (unkno wn) date) Phosphatase 384 H unknown) (unknown) (no (unknown) (unknown) Alkaline (units (unkno wn) date) Phosphatase unknown) (unknown) (no (unknown) (unknown) [place] given (units (unknown) date) there history of unknown) having a relationship with Dr. Reeder. Advised a (unknown) (no (unknown) (unknown) Ammonia < 9 L (units ( unknown) date) unknown) (unknown) (no (unknown) (unknown) Ammonia (units (unkno wn) date) unknown) (unknown) (no (unknown) (unknown) Amylase 59 (units (unk nown) date) unknown) (unknown) (no (unknown) (unknown) Amylase (units (unkno wn) date) unknown) (unknown) (no (unknown) (unknown) Assessment + Plan (units (unknown) date) narrative: unknown) (unknown) (no (unknown) (unknown) Assessment + Plan (units (unknown) date) unknown) (unknown) (no (unknown) (unknown) Asthma (units (unkno wn) date) unknown) (unknown) (no (unknown) (unknown) Atrial (units (unkno wn) date) fibrillation unknown) (unknown) (no (unknown) (unknown) BUN 29 H (units (unkno wn) date) unknown) (unknown) (no (unknown) (unknown) BUN (units (unkno wn) date) unknown) (unknown) (no (unknown) (unknown) BUN/Creatinine (units (unknown) date) Ratio 32.6 H unknown) (unknown) (no (unknown) (unknown) BUN/Creatinine (units (unknown) date) Ratio unknown) (unknown) (no (unknown) (unknown) Baso # (Auto) 0 (units (unknown) date) unknown) (unknown) (no (unknown) (unknown) Baso # (Auto) (units ( unknown) date) unknown) (unknown) (no (unknown) (unknown) Baso % (Auto) 0.4 (units (unknown) date) unknown) (unknown) (no (unknown) (unknown) Baso % (Auto) (units ( unknown) date) unknown) (unknown) (no (unknown) (unknown) Blood Pressure (units (unknown) date) 145/76 H unknown) (unknown) (no (unknown) (unknown) Blood pressures (units (unknown) date) have been unknown) moderately elevated today. He did restart amlodipine (unknown) (no (unknown) (unknown) C-Reactive (units (unk nown) date) Protein 9.0 H unknown) (unknown) (no (unknown) (unknown) C-Reactive (units (unk nown) date) Protein Cancelled unknown) (unknown) (no (unknown) (unknown) C-Reactive (units (unk nown) date) Protein unknown) (unknown) (no (unknown) (unknown) CHEST: (units (unkno wn) date) Respiratory unknown) excursions symmetric, CTAB (unknown) (no (unknown) (unknown) CV: RRR, no M/R/G (units (unknown) date) unknown) (unknown) (no (unknown) (unknown) Calcium 7.8 L (units ( unknown) date) unknown) (unknown) (no (unknown) (unknown) Calcium (units (unkno wn) date) unknown) (unknown) (no (unknown) (unknown) Carbon Dioxide 29 (units (unknown) date) unknown) (unknown) (no (unknown) (unknown) Carbon Dioxide (units (unknown) date) unknown) (unknown) (no (unknown) (unknown) Chloride 100 (units (u nknown) date) unknown) (unknown) (no (unknown) (unknown) Chloride (units (unkno wn) date) unknown) (unknown) (no (unknown) (unknown) Chronic (units (unkno wn) date) anticoagulation unknown) (unknown) (no (unknown) (unknown) Code status (units (un known) date) unknown) (unknown) (no (unknown) (unknown) Creatinine 0.89 (units (unknown) date) unknown) (unknown) (no (unknown) (unknown) Creatinine (units (unk nown) date) unknown) (unknown) (no (unknown) (unknown) Critical Care (units ( unknown) date) time: unknown) (unknown) (no (unknown) (unknown) : 1935 (units (unknown) date) Acct:[id number] unknown) (unknown) (no (unknown) (unknown) Date of Service: (units (unknown) date) 06/16/22 unknown) (unknown) (no (unknown) (unknown) Deep Vein (units (unkn own) date) Thrombosis/Pulmona unknown) ry Embolism Present on Admission: No (unknown) (no (unknown) (unknown) Diagnosed at (units (u nknown) date) [facility] unknown) [facility] Emergency Department. Urine culture (unknown) (no (unknown) (unknown) Disposition (units (un known) date) unknown) (unknown) (no (unknown) (unknown) ESR 9 (units (unkno wn) date) unknown) (unknown) (no (unknown) (unknown) ESR (units (unkno wn) date) unknown) (unknown) (no (unknown) (unknown) EXTR: warm, well (units (unknown) date) perfused, no C/C/E unknown) (unknown) (no (unknown) (unknown) Eliquis (units (unkno wn) date) unknown) (unknown) (no (unknown) (unknown) Eos # (Auto) 0 (units (unknown) date) unknown) (unknown) (no (unknown) (unknown) Eos # (Auto) (units (u nknown) date) unknown) (unknown) (no (unknown) (unknown) Eos % (Auto) 0.4 (units (unknown) date) L unknown) (unknown) (no (unknown) (unknown) Eos % (Auto) (units (u nknown) date) unknown) (unknown) (no (unknown) (unknown) Essential (units (unkn own) date) hypertension unknown) (unknown) (no (unknown) (unknown) Estimated GFR > (units (unknown) date) 60 unknown) (unknown) (no (unknown) (unknown) Estimated GFR (units ( unknown) date) unknown) (unknown) (no (unknown) (unknown) Exam Narrative: (units (unknown) date) unknown) (unknown) (no (unknown) (unknown) Exam (units (unkno wn) date) unknown) (unknown) (no (unknown) (unknown) Family History (units (unknown) date) (Reviewed 06/17/22 unknown) @ 00:47 by Hawa Michael [facility]) (unknown) (no (unknown) (unknown) Father (units (unknown) date) Diabetes mellitus unknown) (unknown) (no (unknown) (unknown) Full (units (unkno wn) date) unknown) (unknown) (no (unknown) (unknown) GEN: Pleasant (units ( unknown) date) elderly male, unknown) alert and oriented x 2, somewhat forgetful, NAD (unknown) (no (unknown) (unknown) GGT 516 H (units (unkn own) date) unknown) (unknown) (no (unknown) (unknown) GGT (units (unkno wn) date) unknown) (unknown) (no (unknown) (unknown) Globulin 2.2 (units (u nknown) date) unknown) (unknown) (no (unknown) (unknown) Globulin (units (unkno wn) date) unknown) (unknown) (no (unknown) (unknown) Glucose 93 (units (unk nown) date) unknown) (unknown) (no (unknown) (unknown) Glucose (units (unkno wn) date) unknown) (unknown) (no (unknown) (unknown) HEENT:NC, Face (units (unknown) date) symmetric unknown) (unknown) (no (unknown) (unknown) Hct 44.9 (units (unkno wn) date) unknown) (unknown) (no (unknown) (unknown) Hct (units (unkno wn) date) unknown) (unknown) (no (unknown) (unknown) He did have rapid (units (unknown) date) AFib yesterday unknown) this has since resolved. Continue Eliquis. He (unknown) (no (unknown) (unknown) He is followed by (units (unknown) date) Dr. Weathers at the unknown) [facility]. 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 (unknown) (no (unknown) (unknown) Hemoglobin A1c (units (unknown) date) 5.8 unknown) (unknown) (no (unknown) (unknown) Hemoglobin A1c (units (unknown) date) unknown) (unknown) (no (unknown) (unknown) Hgb 15.1 (units (unkno wn) date) unknown) (unknown) (no (unknown) (unknown) Hgb (units (unkno wn) date) unknown) (unknown) (no (unknown) (unknown) History of (units (unk nown) date) melanoma unknown) (unknown) (no (unknown) (unknown) 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 (unknown) (no (unknown) (unknown) I spent a total (units (unknown) date) of [] minutes of unknown) critical care time on this patient's care (unknown) (no (unknown) (unknown) INR 1.4 H (units (unkn own) date) unknown) (unknown) (no (unknown) (unknown) INR (units (unkno wn) date) unknown) (unknown) (no (unknown) (unknown) Interval history: (units (unknown) date) unknown) (unknown) (no (unknown) (unknown) [facility] (units (unknown) date) [address] unknown) [place] [address] (unknown) (no (unknown) (unknown) Laboratory (units (unk nown) date) Results - last 24 unknown) hr (unknown) (no (unknown) (unknown) Labs (units (unkno wn) date) unknown) (unknown) (no (unknown) (unknown) Labs: (units (unkno wn) date) unknown) (unknown) (no (unknown) (unknown) Lactate 2.1 (units (un known) date) unknown) (unknown) (no (unknown) (unknown) Lactate (units (unkno wn) date) Dehydrogenase 362 unknown) H (unknown) (no (unknown) (unknown) Lactate (units (unkno wn) date) Dehydrogenase unknown) (unknown) (no (unknown) (unknown) Lactate (units (unkno wn) date) unknown) (unknown) (no (unknown) (unknown) Lymph # (Auto) (units (unknown) date) 600 L unknown) (unknown) (no (unknown) (unknown) Lymph # (Auto) (units (unknown) date) unknown) (unknown) (no (unknown) (unknown) Lymph % (Auto) (units (unknown) date) 7.1 L unknown) (unknown) (no (unknown) (unknown) Lymph % (Auto) (units (unknown) date) unknown) (unknown) (no (unknown) (unknown) MCH 30.7 (units (unkno wn) date) unknown) (unknown) (no (unknown) (unknown) MCH (units (unkno wn) date) unknown) (unknown) (no (unknown) (unknown) MCHC 33.6 (units (unkn own) date) unknown) (unknown) (no (unknown) (unknown) MCHC (units (unkno wn) date) unknown) (unknown) (no (unknown) (unknown) MCV 91.4 (units (unkno wn) date) unknown) (unknown) (no (unknown) (unknown) MCV (units (unkno wn) date) unknown) (unknown) (no (unknown) (unknown) Medical History (units (unknown) date) (Updated 06/17/22 unknown) @ 00:55 by CASEY Crystal) (unknown) (no (unknown) (unknown) [place] # (Auto) (units ( unknown) date) 1100 H unknown) (unknown) (no (unknown) (unknown) [place] # (Auto) (units ( unknown) date) unknown) (unknown) (no (unknown) (unknown) [place] % (Auto) (units ( unknown) date) 13.3 unknown) (unknown) (no (unknown) (unknown) [place] % (Auto) (units ( unknown) date) unknown) (unknown) (no (unknown) (unknown) Mother (units (unknown) date) No problems noted. unknown) (unknown) (no (unknown) (unknown) NEURO: Alert and (units (unknown) date) oriented x 2, unknown) nonfocal (unknown) (no (unknown) (unknown) NT-Pro-B (units (unkno wn) date) Natriuret Pep 1200 unknown) H (unknown) (no (unknown) (unknown) NT-Pro-B (units (unkno wn) date) Natriuret Pep unknown) (unknown) (no (unknown) (unknown) Narrative (units (unkn own) date) unknown) (unknown) (no (unknown) (unknown) Neut # (Auto) (units ( unknown) date) 6400 unknown) (unknown) (no (unknown) (unknown) Neut # (Auto) (units ( unknown) date) unknown) (unknown) (no (unknown) (unknown) Neut % (Auto) (units ( unknown) date) 78.8 H unknown) (unknown) (no (unknown) (unknown) Neut % (Auto) (units ( unknown) date) unknown) (unknown) (no (unknown) (unknown) Objective (units (unkn own) date) unknown) (unknown) (no (unknown) (unknown) Oxygen Delivery (units (unknown) date) Method Room Air unknown) (unknown) (no (unknown) (unknown) Oxygen Flow Rate (units (unknown) date) 0 unknown) (unknown) (no (unknown) (unknown) PFSH (units (unkno wn) date) unknown) (unknown) (no (unknown) (unknown) PT 16.5 H (units (unkn own) date) unknown) (unknown) (no (unknown) (unknown) PT (units (unkno wn) date) unknown) (unknown) (no (unknown) (unknown) Pacemaker (units (unkn own) date) unknown) (unknown) (no (unknown) (unknown) Patient appears (units (unknown) date) to have ongoing unknown) encephalopathy. Although he is more alert and (unknown) (no (unknown) (unknown) Patient has a (units ( unknown) date) known history of unknown) melanoma status post resection 2 years ago. He (unknown) (no (unknown) (unknown) Patient has (units (un known) date) evidence of severe unknown) protein calorie malnutrition. He is lost 30 lb (unknown) (no (unknown) (unknown) Patient: (units (unkno wn) date) Yoseph Cardoso unknown) MR#: [id number] (unknown) (no (unknown) (unknown) Pending further (units (unknown) date) determination of unknown) patient's goals of care (unknown) (no (unknown) (unknown) Phosphorus 3.6 (units (unknown) date) unknown) (unknown) (no (unknown) (unknown) Phosphorus (units (unk nown) date) unknown) (unknown) (no (unknown) (unknown) Plt Count 205 (units ( unknown) date) unknown) (unknown) (no (unknown) (unknown) Plt Count (units (unkn own) date) unknown) (unknown) (no (unknown) (unknown) Potassium 4.4 (units ( unknown) date) unknown) (unknown) (no (unknown) (unknown) Potassium (units (unkn own) date) unknown) (unknown) (no (unknown) (unknown) Procalcitonin (units ( unknown) date) 2.46 H unknown) (unknown) (no (unknown) (unknown) Procalcitonin (units ( unknown) date) unknown) (unknown) (no (unknown) (unknown) Progress Note (units ( unknown) date) unknown) (unknown) (no (unknown) (unknown) Prophylaxis (units (un known) date) unknown) (unknown) (no (unknown) (unknown) Provider: (units (unkn own) date) Roxana Parker MD unknown) (unknown) (no (unknown) (unknown) Pulse Oximetry 97 (units (unknown) date) unknown) (unknown) (no (unknown) (unknown) Pulse Rate 70 (units ( unknown) date) unknown) (unknown) (no (unknown) (unknown) Quality (units (unkno wn) date) unknown) (unknown) (no (unknown) (unknown) RBC 4.92 (units (unkno wn) date) unknown) (unknown) (no (unknown) (unknown) RBC (units (unkno wn) date) unknown) (unknown) (no (unknown) (unknown) RDW 14.1 (units (unkno wn) date) unknown) (unknown) (no (unknown) (unknown) RDW (units (unkno wn) date) unknown) (unknown) (no (unknown) (unknown) Respiratory Rate (units (unknown) date) 16 unknown) (unknown) (no (unknown) (unknown) SKIN: warm and (units (unknown) date) dry, no rash unknown) (unknown) (no (unknown) (unknown) Signed (units (unkno wn) date) By:<Electronically unknown) signed by Roxana Parker MD> (unknown) (no (unknown) (unknown) Smoking Status: (units (unknown) date) Never smoker unknown) (unknown) (no (unknown) (unknown) Social History (units (unknown) date) (Reviewed 06/16/22 unknown) @ 14:04 by Matt Swartz MD) (unknown) (no (unknown) (unknown) Sodium 134 L (units (u nknown) date) unknown) (unknown) (no (unknown) (unknown) Sodium (units (unkno wn) date) unknown) (unknown) (no (unknown) (unknown) Subjective (units (unk nown) date) unknown) (unknown) (no (unknown) (unknown) Surgical History (units (unknown) date) (Updated 06/16/22 unknown) @ 21:27 by Hawa Michael [facility]) (unknown) (no (unknown) (unknown) Suspect this (units (u nknown) date) reflected SIRS unknown) rather than sepsis. However, he does have evidence (unknown) (no (unknown) (unknown) Temperature 96.3 (units (unknown) date) F L unknown) (unknown) (no (unknown) (unknown) They did they (units ( unknown) date) might prefer to unknown) proceed with care at the [facility] (unknown) (no (unknown) (unknown) Time Spent With (units (unknown) date) Patient unknown) (unknown) (no (unknown) (unknown) Today, patient (units (unknown) date) reports he is unknown) feeling better overall. He does not recall being (unknown) (no (unknown) (unknown) Total Bilirubin (units (unknown) date) 2.2 H unknown) (unknown) (no (unknown) (unknown) Total Bilirubin (units (unknown) date) unknown) (unknown) (no (unknown) (unknown) Total Protein 4.8 (units (unknown) date) L unknown) (unknown) (no (unknown) (unknown) Total Protein (units ( unknown) date) unknown) (unknown) (no (unknown) (unknown) Troponin I 0.013 (units (unknown) date) unknown) (unknown) (no (unknown) (unknown) Troponin I 0.015 (units (unknown) date) unknown) (unknown) (no (unknown) (unknown) Troponin I (units (unk nown) date) unknown) (unknown) (no (unknown) (unknown) Ur Bilirubin (units (u nknown) date) Confirm Positive H unknown) (unknown) (no (unknown) (unknown) Ur Bilirubin (units (u nknown) date) Confirm unknown) (unknown) (no (unknown) (unknown) Ur Culture (units (unk nown) date) Indicated? unknown) Specimen cultured (unknown) (no (unknown) (unknown) Ur Culture (units (unk nown) date) Indicated? unknown) (unknown) (no (unknown) (unknown) Ur Leukocyte (units (u nknown) date) Esterase Trace H unknown) (unknown) (no (unknown) (unknown) Ur Leukocyte (units (u nknown) date) Esterase unknown) (unknown) (no (unknown) (unknown) Ur Specific (units (un known) date) [place] 1.020 unknown) (unknown) (no (unknown) (unknown) Ur Specific (units (un known) date) [place] unknown) (unknown) (no (unknown) (unknown) Ur Squamous Epith (units (unknown) date) Cells 1-5 /hpf unknown) (unknown) (no (unknown) (unknown) Ur Squamous Epith (units (unknown) date) Cells unknown) (unknown) (no (unknown) (unknown) Urine Appearance (units (unknown) date) Cloudy unknown) (unknown) (no (unknown) (unknown) Urine Appearance (units (unknown) date) unknown) (unknown) (no (unknown) (unknown) Urine Bacteria (units (unknown) date) None seen unknown) (unknown) (no (unknown) (unknown) Urine Bacteria (units (unknown) date) unknown) (unknown) (no (unknown) (unknown) Urine Bilirubin (units (unknown) date) 3+ H unknown) (unknown) (no (unknown) (unknown) Urine Bilirubin (units (unknown) date) unknown) (unknown) (no (unknown) (unknown) Urine Color Brown (units (unknown) date) unknown) (unknown) (no (unknown) (unknown) Urine Color (units (un known) date) unknown) (unknown) (no (unknown) (unknown) Urine Glucose (units ( unknown) date) (UA) Negative unknown) (unknown) (no (unknown) (unknown) Urine Glucose (units ( unknown) date) (UA) unknown) (unknown) (no (unknown) (unknown) Urine Ketones 1+ (units (unknown) date) H unknown) (unknown) (no (unknown) (unknown) Urine Ketones (units ( unknown) date) unknown) (unknown) (no (unknown) (unknown) Urine Nitrate (units ( unknown) date) Positive H unknown) (unknown) (no (unknown) (unknown) Urine Nitrate (units ( unknown) date) unknown) (unknown) (no (unknown) (unknown) Urine Occult (units (u nknown) date) Blood Trace-intact unknown) (unknown) (no (unknown) (unknown) Urine Occult (units (u nknown) date) Blood unknown) (unknown) (no (unknown) (unknown) Urine Protein 1+ (units (unknown) date) H unknown) (unknown) (no (unknown) (unknown) Urine Protein (units ( unknown) date) unknown) (unknown) (no (unknown) (unknown) Urine RBC (units (unkn own) date) 10-30/hpf H unknown) (unknown) (no (unknown) (unknown) Urine RBC (units (unkn own) date) unknown) (unknown) (no (unknown) (unknown) Urine (units (unkno wn) date) Urobilinogen 1.0 unknown) (unknown) (no (unknown) (unknown) Urine (units (unkno wn) date) Urobilinogen unknown) (unknown) (no (unknown) (unknown) Urine WBC 1-5/hpf (units (unknown) date) unknown) (unknown) (no (unknown) (unknown) Urine WBC (units (unkn own) date) unknown) (unknown) (no (unknown) (unknown) Urine pH 6.5 (units (u nknown) date) unknown) (unknown) (no (unknown) (unknown) Urine pH (units (unkno wn) date) unknown) (unknown) (no (unknown) (unknown) VTE (units (unkno wn) date) unknown) (unknown) (no (unknown) (unknown) Vital Signs (units (un known) date) unknown) (unknown) (no (unknown) (unknown) WBC 8.1 (units (unkno wn) date) unknown) (unknown) (no (unknown) (unknown) WBC (units (unkno wn) date) unknown) (unknown) (no (unknown) (unknown) [place]. (units (unkno wn) date) unknown) (unknown) (no (unknown) (unknown) [Embedded Image (units (unknown) date) Not Available] unknown) (unknown) (no (unknown) (unknown) about their goals (units (unknown) date) of care and we can unknown) pursue the appropriate option accordingly. (unknown) (no (unknown) (unknown) above. Await (units (u nknown) date) dietitian unknown) recommendation. (unknown) (no (unknown) (unknown) alcohol intake: (units (unknown) date) current unknown) (unknown) (no (unknown) (unknown) and intervention (units (unknown) date) or not. I have unknown) asked his and he to have a further conversation (unknown) (no (unknown) (unknown) appetite and (units (u nknown) date) intake unknown) approximately 6 weeks ago. Around the same time he (unknown) (no (unknown) (unknown) biopsy could be (units (unknown) date) done on an unknown) outpatient basis in that setting as well. (unknown) (no (unknown) (unknown) carcinoma is also (units (unknown) date) in the unknown) differential. Patient has no known history of (unknown) (no (unknown) (unknown) change in his (units ( unknown) date) bowel habits. He unknown) had no nausea or vomiting simply just did not (unknown) (no (unknown) (unknown) continue to (units (un known) date) monitor. unknown) (unknown) (no (unknown) (unknown) developed night (units (unknown) date) sweats. Did have unknown) some mild abdominal discomfort but nothing (unknown) (no (unknown) (unknown) encephalopathy/co (units (unknown) date) gnitive unknown) impairment, essential hypertension, AFib, and (unknown) (no (unknown) (unknown) etiology such as (units (unknown) date) microabscess. unknown) (unknown) (no (unknown) (unknown) have any (units (unkno wn) date) appetite. He is unknown) lost approximately 30 lb over the past several months. (unknown) (no (unknown) (unknown) hepatitis. In the (units (unknown) date) differential was unknown) also infectious etiology. That said, (unknown) (no (unknown) (unknown) here is negative (units (unknown) date) thus far. Continue unknown) Zosyn for now. Await culture results from (unknown) (no (unknown) (unknown) household (units (unkn own) date) members: spouse unknown) (unknown) (no (unknown) (unknown) in the emergency (units (unknown) date) department. His unknown) is at bedside. He just finished eating (unknown) (no (unknown) (unknown) includes (units (unkno wn) date) metastatic 6 unknown) weeks. uding neoplastic process as well as infectious (unknown) (no (unknown) (unknown) infectious or (units ( unknown) date) inflammatory unknown) pulmonary opacities. [id number] (unknown) (no (unknown) (unknown) is status post (units (unknown) date) pacemaker. unknown) (unknown) (no (unknown) (unknown) liver and spleen (units (unknown) date) being unknown) significantly heterogeneous. Patient underwent abdominal (unknown) (no (unknown) (unknown) lunch and is in (units (unknown) date) good spirits. He unknown) and his report onset of decreased (unknown) (no (unknown) (unknown) malnutrition. (units ( unknown) date) Head CT was unknown) unrevealing. CT scan of the chest revealed bibasilar (unknown) (no (unknown) (unknown) more likely this (units (unknown) date) is malignant in unknown) nature. Discussed with the patient and his (unknown) (no (unknown) (unknown) negative to date. (units (unknown) date) He is afebrile unknown) with a normal white blood cell count. (unknown) (no (unknown) (unknown) not appear to be (units (unknown) date) able to make a unknown) decision about whether he would pursue biopsy (unknown) (no (unknown) (unknown) now has (units (unkno wn) date) multifocal lesions unknown) in the liver and spleen on imaging. Hepatocellular (unknown) (no (unknown) (unknown) of UTI. He (units (unk nown) date) remains on empiric unknown) Zosyn therapy. Blood and urine cultures are (unknown) (no (unknown) (unknown) oriented today, (units (unknown) date) he is unable to unknown) make complex decisions at this point. Will (unknown) (no (unknown) (unknown) over the last few (units (unknown) date) months. Highly unknown) concerning for metastatic disease as noted (unknown) (no (unknown) (unknown) patient reports a (units (unknown) date) slowly progressive unknown) onset of symptoms. He is not had any ill (unknown) (no (unknown) (unknown) pelvic CT which (units (unknown) date) revealed multiple unknown) ill-defined hypoattenuating mass lesions (unknown) (no (unknown) (unknown) placement, on (units ( unknown) date) chronic Eliquis, unknown) hypertension, and melanoma who was admitted (unknown) (no (unknown) (unknown) receive any (units (un known) date) systemic unknown) treatment. He has not had any recurrence and follows with (unknown) (no (unknown) (unknown) [id number] (units (unknown) date) n-left pleural unknown) effusions. There is additional note of the (unknown) (no (unknown) (unknown) scalp (units (unkno wn) date) approximately 2 unknown) years ago. He describes having had a 7 an inch incision. (unknown) (no (unknown) (unknown) symptoms such as (units (unknown) date) fevers or chills. unknown) His white blood cell count is normal. It is (unknown) (no (unknown) (unknown) that was (units (unkno wn) date) concerning to him unknown) overall. 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 unknown) (unknown) (no (unknown) (unknown) this morning. (units ( unknown) date) Will monitor. unknown) (unknown) (no (unknown) (unknown) throughout the (units ( unknown) date) liver which was unknown) felt to be nonspecific but differential diagnosis (unknown) (no (unknown) (unknown) today; this time (units (unknown) date) is exclusive of unknown) procedural time. 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 At this time the patient does (unknown) (no (unknown) (unknown) yesterday with (units (unknown) date) sepsis without unknown) septic shock, transaminitis, UTI, Result panel 241 (unknown) (no date) (unknown) (unknown) 1.8 ng/ml (unkn own) (unknown) (no date) (unknown) (unknown) 1.8 ng/ml (unkn own) Result panel 242 (unknown) (no date) (unknown) (unknown) 0 /ul (unkn own) (unknown) (no date) (unknown) (unknown) 0.6 % (unkn own) (unknown) (no date) (unknown) (unknown) 0.7 % (unkn own) (unknown) (no date) (unknown) (unknown) 100 /ul (unkn own) (unknown) (no date) (unknown) (unknown) 1100 /ul (unkn own) (unknown) (no date) (unknown) (unknown) 14.4 % (unkn own) (unknown) (no date) (unknown) (unknown) 14.9 g/dl (unkn own) (unknown) (no date) (unknown) (unknown) 15.8 % (unkn own) (unknown) (no date) (unknown) (unknown) 189 x10 3/ul (unkn own) (unknown) (no date) (unknown) (unknown) 3.2 mg/dl (unkn own) (unknown) (no date) (unknown) (unknown) 30.8 pg (unkn own) (unknown) (no date) (unknown) (unknown) 33.7 % (unkn own) (unknown) (no date) (unknown) (unknown) 4.83 x10 6/ul (unkn own) (unknown) (no date) (unknown) (unknown) 44.2 % (unkn own) (unknown) (no date) (unknown) (unknown) 500 /ul (unkn own) (unknown) (no date) (unknown) (unknown) 5300 /ul (unkn own) (unknown) (no date) (unknown) (unknown) 7.0 x10 3/ul (unkn own) (unknown) (no date) (unknown) (unknown) 7.5 % (unkn own) (unknown) (no date) (unknown) (unknown) 75.4 % (unkn own) (unknown) (no date) (unknown) (unknown) 91.5 fl (unkn own) Result panel 243 (unknown) (no date) (unknown) (unknown) > 60 ml/min (unkn own) (unknown) (no date) (unknown) (unknown) > 60 ml/min (unkn own) (unknown) (no date) (unknown) (unknown) 0.88 mg/dl (unkn own) (unknown) (no date) (unknown) (unknown) 1.0 (units unknown) (unknown) (unknown) (no date) (unknown) (unknown) 104 mmol/l (unkn own) (unknown) (no date) (unknown) (unknown) 138 mmol/l (unkn own) (unknown) (no date) (unknown) (unknown) 2.0 mg/dl (unkn own) (unknown) (no date) (unknown) (unknown) 2.4 g/dl (unkn own) (unknown) (no date) (unknown) (unknown) 2.5 g/dl (unkn own) (unknown) (no date) (unknown) (unknown) 22 mg/dl (unkn own) (unknown) (no date) (unknown) (unknown) 25.0 (units unknown) (unknown) (unknown) (no date) (unknown) (unknown) 27 mmol/l (unkn own) (unknown) (no date) (unknown) (unknown) 4.3 mmol/l (unkn own) (unknown) (no date) (unknown) (unknown) 4.9 g/dl (unkn own) (unknown) (no date) (unknown) (unknown) 401 u/l (unkn own) (unknown) (no date) (unknown) (unknown) 52 iu/l (unkn own) (unknown) (no date) (unknown) (unknown) 53 iu/l (unkn own) (unknown) (no date) (unknown) (unknown) 7.6 mg/dl (unkn own) (unknown) (no date) (unknown) (unknown) 82 mg/dl (unkn own) (unknown) (no date) (unknown) (unknown) 82 mg/dl (unkn own) Result panel 244 (unknown) (no date) (unknown) (unknown) No growth. (units (un known) unknown) Result panel 245 (unknown) (no (unknown) (unknown) (no value) (units (unk nown) date) unknown) (unknown) (no (unknown) (unknown) (past 8 hours): (units (unknown) date) unknown) (unknown) (no (unknown) (unknown) [id number] (units (unkno wn) date) unknown) (unknown) (no (unknown) (unknown) 06/16/22 06/18/22 (units (unknown) date) 06/18/22 unknown) (unknown) (no (unknown) (unknown) 06/18/22 06:02 (units (unknown) date) unknown) (unknown) (no (unknown) (unknown) 06/18/22 (units (unkno wn) date) unknown) (unknown) (no (unknown) (unknown) 06:02 (units (unkno wn) date) unknown) (unknown) (no (unknown) (unknown) 06:30 06/18/22 (units (unknown) date) unknown) (unknown) (no (unknown) (unknown) 09:02 06/18/22 (units (unknown) date) unknown) (unknown) (no (unknown) (unknown) 10:13 (units (unkno wn) date) unknown) (unknown) (no (unknown) (unknown) 21:57 06:02 06:02 (units (unknown) date) unknown) (unknown) (no (unknown) (unknown) 86-year-old male (units (unknown) date) with history of unknown) atrial fibrillation, status post pacemaker (unknown) (no (unknown) (unknown) ALT 52 H (units (unkno wn) date) unknown) (unknown) (no (unknown) (unknown) ALT (units (unkno wn) date) unknown) (unknown) (no (unknown) (unknown) AST 53 (units (unkno wn) date) unknown) (unknown) (no (unknown) (unknown) AST (units (unkno wn) date) unknown) (unknown) (no (unknown) (unknown) Age/Sex: 86 / M (units (unknown) date) unknown) (unknown) (no (unknown) (unknown) Albumin 2.5 L (units ( unknown) date) unknown) (unknown) (no (unknown) (unknown) Albumin (units (unkno wn) date) unknown) (unknown) (no (unknown) (unknown) Albumin/Globulin (units (unknown) date) Ratio 1.0 unknown) (unknown) (no (unknown) (unknown) Albumin/Globulin (units (unknown) date) Ratio unknown) (unknown) (no (unknown) (unknown) Alkaline (units (unkno wn) date) Phosphatase 401 H unknown) (unknown) (no (unknown) (unknown) Alkaline (units (unkno wn) date) Phosphatase unknown) (unknown) (no (unknown) (unknown) Alpha Fetoprotein (units (unknown) date) 1.8 unknown) (unknown) (no (unknown) (unknown) Alpha Fetoprotein (units (unknown) date) unknown) (unknown) (no (unknown) (unknown) Assessment + Plan (units (unknown) date) unknown) (unknown) (no (unknown) (unknown) Asthma (units (unkno wn) date) unknown) (unknown) (no (unknown) (unknown) Atrial (units (unkno wn) date) fibrillation unknown) (unknown) (no (unknown) (unknown) BUN 22 H (units (unkno wn) date) unknown) (unknown) (no (unknown) (unknown) BUN (units (unkno wn) date) unknown) (unknown) (no (unknown) (unknown) BUN/Creatinine (units (unknown) date) Ratio 25.0 H unknown) (unknown) (no (unknown) (unknown) BUN/Creatinine (units (unknown) date) Ratio unknown) (unknown) (no (unknown) (unknown) Baso # (Auto) 0 (units (unknown) date) unknown) (unknown) (no (unknown) (unknown) Baso # (Auto) (units ( unknown) date) unknown) (unknown) (no (unknown) (unknown) Baso % (Auto) 0.6 (units (unknown) date) unknown) (unknown) (no (unknown) (unknown) Baso % (Auto) (units ( unknown) date) unknown) (unknown) (no (unknown) (unknown) Blood Pressure (units (unknown) date) 157/76 H 136/72 unknown) (unknown) (no (unknown) (unknown) Calcium 7.6 L (units ( unknown) date) unknown) (unknown) (no (unknown) (unknown) Calcium (units (unkno wn) date) unknown) (unknown) (no (unknown) (unknown) Carbon Dioxide 27 (units (unknown) date) unknown) (unknown) (no (unknown) (unknown) Carbon Dioxide (units (unknown) date) unknown) (unknown) (no (unknown) (unknown) Chloride 104 (units (u nknown) date) unknown) (unknown) (no (unknown) (unknown) Chloride (units (unkno wn) date) unknown) (unknown) (no (unknown) (unknown) Chronic (units (unkno wn) date) anticoagulation unknown) (unknown) (no (unknown) (unknown) Creatinine 0.88 (units (unknown) date) unknown) (unknown) (no (unknown) (unknown) Creatinine (units (unk nown) date) unknown) (unknown) (no (unknown) (unknown) Critical Care (units ( unknown) date) time: unknown) (unknown) (no (unknown) (unknown) : 1935 (units (unknown) date) Acct:[id number] unknown) (unknown) (no (unknown) (unknown) Date of Service: (units (unknown) date) 06/16/22 unknown) (unknown) (no (unknown) (unknown) Deep Vein (units (unkn own) date) Thrombosis/Pulmona unknown) ry Embolism Present on Admission: No (unknown) (no (unknown) (unknown) Eos # (Auto) 100 (units (unknown) date) unknown) (unknown) (no (unknown) (unknown) Eos # (Auto) (units (u nknown) date) unknown) (unknown) (no (unknown) (unknown) Eos % (Auto) 0.7 (units (unknown) date) L unknown) (unknown) (no (unknown) (unknown) Eos % (Auto) (units (u nknown) date) unknown) (unknown) (no (unknown) (unknown) Essential (units (unkn own) date) hypertension unknown) (unknown) (no (unknown) (unknown) Estimated GFR > (units (unknown) date) 60 unknown) (unknown) (no (unknown) (unknown) Estimated GFR (units ( unknown) date) unknown) (unknown) (no (unknown) (unknown) Exam (units (unkno wn) date) unknown) (unknown) (no (unknown) (unknown) Family History (units (unknown) date) (Reviewed 06/17/22 unknown) @ 00:47 by Hawa Michael [facility]) (unknown) (no (unknown) (unknown) Father (units (unknown) date) Diabetes mellitus unknown) (unknown) (no (unknown) (unknown) Fraction of (units (un known) date) Inspired Oxygen 21 unknown) (unknown) (no (unknown) (unknown) Globulin 2.4 (units (u nknown) date) unknown) (unknown) (no (unknown) (unknown) Globulin (units (unkno wn) date) unknown) (unknown) (no (unknown) (unknown) Glucose 82 (units (unk nown) date) unknown) (unknown) (no (unknown) (unknown) Glucose (units (unkno wn) date) unknown) (unknown) (no (unknown) (unknown) Hct 44.2 (units (unkno wn) date) unknown) (unknown) (no (unknown) (unknown) Hct (units (unkno wn) date) unknown) (unknown) (no (unknown) (unknown) He is followed by (units (unknown) date) Dr. Weathers at the unknown) [facility].? 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 (unknown) (no (unknown) (unknown) Hgb 14.9 (units (unkno wn) date) unknown) (unknown) (no (unknown) (unknown) Hgb (units (unkno wn) date) unknown) (unknown) (no (unknown) (unknown) History of (units (unk nown) date) melanoma unknown) (unknown) (no (unknown) (unknown) 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 (unknown) (no (unknown) (unknown) I spent a total (units (unknown) date) of [] minutes of unknown) critical care time on this patient's care (unknown) (no (unknown) (unknown) Interval history: (units (unknown) date) unknown) (unknown) (no (unknown) (unknown) [facility] (units (unknown) date) [address] [place] [address] unknown) [place] [address] (unknown) (no (unknown) (unknown) Laboratory (units (unk nown) date) Results - last unknown) hr (unknown) (no (unknown) (unknown) Labs (units (unkno wn) date) unknown) (unknown) (no (unknown) (unknown) Labs: (units (unkno wn) date) unknown) (unknown) (no (unknown) (unknown) Lymph # (Auto) (units (unknown) date) 500 L unknown) (unknown) (no (unknown) (unknown) Lymph # (Auto) (units (unknown) date) unknown) (unknown) (no (unknown) (unknown) Lymph % (Auto) (units (unknown) date) 7.5 L unknown) (unknown) (no (unknown) (unknown) Lymph % (Auto) (units (unknown) date) unknown) (unknown) (no (unknown) (unknown) MCH 30.8 (units (unkno wn) date) unknown) (unknown) (no (unknown) (unknown) MCH (units (unkno wn) date) unknown) (unknown) (no (unknown) (unknown) MCHC 33.7 (units (unkn own) date) unknown) (unknown) (no (unknown) (unknown) MCHC (units (unkno wn) date) unknown) (unknown) (no (unknown) (unknown) MCV 91.5 (units (unkno wn) date) unknown) (unknown) (no (unknown) (unknown) MCV (units (unkno wn) date) unknown) (unknown) (no (unknown) (unknown) Medical History (units (unknown) date) (Updated 06/17/22 unknown) @ 00:55 by Hawa Michael [facility]) (unknown) (no (unknown) (unknown) [place] # (Auto) (units ( unknown) date) 1100 H unknown) (unknown) (no (unknown) (unknown) [place] # (Auto) (units ( unknown) date) unknown) (unknown) (no (unknown) (unknown) [place] % (Auto) (units ( unknown) date) 15.8 H unknown) (unknown) (no (unknown) (unknown) [place] % (Auto) (units ( unknown) date) unknown) (unknown) (no (unknown) (unknown) Mother (units (unknown) date) No problems noted. unknown) (unknown) (no (unknown) (unknown) Neut # (Auto) (units ( unknown) date) 5300 unknown) (unknown) (no (unknown) (unknown) Neut # (Auto) (units ( unknown) date) unknown) (unknown) (no (unknown) (unknown) Neut % (Auto) (units ( unknown) date) 75.4 H unknown) (unknown) (no (unknown) (unknown) Neut % (Auto) (units ( unknown) date) unknown) (unknown) (no (unknown) (unknown) Objective (units (unkn own) date) unknown) (unknown) (no (unknown) (unknown) Oxygen Delivery (units (unknown) date) Method Room Air unknown) (unknown) (no (unknown) (unknown) Oxygen Flow Rate (units (unknown) date) 0 unknown) (unknown) (no (unknown) (unknown) PFSH (units (unkno wn) date) unknown) (unknown) (no (unknown) (unknown) Pacemaker (units (unkn own) date) unknown) (unknown) (no (unknown) (unknown) Patient: (units (unkno wn) date) Yoseph Cardoso unknown) MR#: [id number] (unknown) (no (unknown) (unknown) Phosphorus 3.2 (units (unknown) date) unknown) (unknown) (no (unknown) (unknown) Phosphorus (units (unk nown) date) unknown) (unknown) (no (unknown) (unknown) Plt Count 189 (units ( unknown) date) unknown) (unknown) (no (unknown) (unknown) Plt Count (units (unkn own) date) unknown) (unknown) (no (unknown) (unknown) Potassium 4.3 (units ( unknown) date) unknown) (unknown) (no (unknown) (unknown) Potassium (units (unkn own) date) unknown) (unknown) (no (unknown) (unknown) Progress Note (units ( unknown) date) unknown) (unknown) (no (unknown) (unknown) Provider: (units (unkn own) date) Roxana Parker MD unknown) (unknown) (no (unknown) (unknown) Pulse Oximetry 97 (units (unknown) date) 96 97 unknown) (unknown) (no (unknown) (unknown) Pulse Rate 61 86 (units (unknown) date) 95 H unknown) (unknown) (no (unknown) (unknown) Quality (units (unkno wn) date) unknown) (unknown) (no (unknown) (unknown) RBC 4.83 (units (unkno wn) date) unknown) (unknown) (no (unknown) (unknown) RBC (units (unkno wn) date) unknown) (unknown) (no (unknown) (unknown) RDW 14.4 (units (unkno wn) date) unknown) (unknown) (no (unknown) (unknown) RDW (units (unkno wn) date) unknown) (unknown) (no (unknown) (unknown) Respiratory Rate (units (unknown) date) 17 16 16 unknown) (unknown) (no (unknown) (unknown) SaO2/FiO2 Ratio (units (unknown) date) 471 unknown) (unknown) (no (unknown) (unknown) Signed By: (units (unk nown) date) unknown) (unknown) (no (unknown) (unknown) Smoking Status: (units (unknown) date) Never smoker unknown) (unknown) (no (unknown) (unknown) Social History (units (unknown) date) (Reviewed 06/16/22 unknown) @ 14:04 by Matt Swartz MD) (unknown) (no (unknown) (unknown) Sodium 138 (units (unk nown) date) unknown) (unknown) (no (unknown) (unknown) Sodium (units (unkno wn) date) unknown) (unknown) (no (unknown) (unknown) Subjective (units (unk nown) date) unknown) (unknown) (no (unknown) (unknown) Surgical History (units (unknown) date) (Updated 06/16/22 unknown) @ 21:27 by Hawa Michael [facility]) (unknown) (no (unknown) (unknown) Temperature 96.8 (units (unknown) date) F L 96.8 F L unknown) (unknown) (no (unknown) (unknown) There were also (units (unknown) date) numerous small unknown) hypoattenuating lesions throughout spleen which (unknown) (no (unknown) (unknown) Time Spent With (units (unknown) date) Patient unknown) (unknown) (no (unknown) (unknown) Total Bilirubin (units (unknown) date) 2.0 H unknown) (unknown) (no (unknown) (unknown) Total Bilirubin (units (unknown) date) unknown) (unknown) (no (unknown) (unknown) Total Protein 4.9 (units (unknown) date) L unknown) (unknown) (no (unknown) (unknown) Total Protein (units ( unknown) date) unknown) (unknown) (no (unknown) (unknown) VTE (units (unkno wn) date) unknown) (unknown) (no (unknown) (unknown) Vital Signs (units (un known) date) unknown) (unknown) (no (unknown) (unknown) WBC 7.0 (units (unkno wn) date) unknown) (unknown) (no (unknown) (unknown) WBC (units (unkno wn) date) unknown) (unknown) (no (unknown) (unknown) [Embedded Image (units (unknown) date) Not Available] unknown) (unknown) (no (unknown) (unknown) ago. 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 He is a history of a nevoid (unknown) (no (unknown) (unknown) decreased (units (unkn own) date) appetite and night unknown) sweats. He did have occasional mild abdominal (unknown) (no (unknown) (unknown) discomfort which (units (unknown) date) he attributed to unknown) his chronic constipation. He lost (unknown) (no (unknown) (unknown) encephalopathy/co (units (unknown) date) gnitive unknown) impairment, essential hypertension, AFib, and (unknown) (no (unknown) (unknown) household (units (unkn own) date) members: spouse unknown) (unknown) (no (unknown) (unknown) includes (units (unkno wn) date) metastatic unknown) disease, multifocal hepatocellular carcinoma or infection. (unknown) (no (unknown) (unknown) infectious or (units ( unknown) date) inflammatory unknown) pulmonary opacities.? [id number] (unknown) (no (unknown) (unknown) liver and spleen (units (unknown) date) being unknown) significantly heterogeneous.? Patient underwent abdominal (unknown) (no (unknown) (unknown) malnutrition.? (units ( unknown) date) Head CT was unknown) unrevealing.? CT scan of the chest revealed bibasilar (unknown) (no (unknown) (unknown) melanoma which (units (unknown) date) was resected from unknown) his right temporal scalp approximately 2 years (unknown) (no (unknown) (unknown) onset of symptoms (units (unknown) date) approximately 6 unknown) weeks prior to admission. He developed (unknown) (no (unknown) (unknown) pelvic CT which (units (unknown) date) revealed multiple unknown) ill-defined hypoattenuating mass lesions (unknown) (no (unknown) (unknown) placement, on (units ( unknown) date) chronic Eliquis, unknown) hypertension, and melanoma who was admitted (unknown) (no (unknown) (unknown) receive any (units (un known) date) systemic unknown) treatment.? He has not had any recurrence and follows with (unknown) (no (unknown) (unknown) [id number] (units (unknown) date) n-left pleural unknown) effusions.? There is additional note of the (unknown) (no (unknown) (unknown) scalp (units (unkno wn) date) approximately 2 unknown) years ago.? He describes having had a 7 an inch incision.? 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 unknown) (unknown) (no (unknown) (unknown) throughout the (units ( unknown) date) liver which was unknown) felt to be nonspecific but differential diagnosis (unknown) (no (unknown) (unknown) today; this time (units (unknown) date) is exclusive of unknown) procedural time. (unknown) (no (unknown) (unknown) well as (units (unkno wn) date) infectious unknown) etiology such as microabscess. Patient reported insidious (unknown) (no (unknown) (unknown) were also (units (unkn own) date) nonspecific and unknown) have a differential including neoplastic process as (unknown) (no (unknown) (unknown) yesterday with (units (unknown) date) sepsis without unknown) septic shock, transaminitis, UTI, Result panel 246 (unknown) (no (unknown) (unknown) (no value) (units (unk nown) date) unknown) (unknown) (no (unknown) (unknown) (past 8 hours): (units (unknown) date) unknown) (unknown) (no (unknown) (unknown) [id number] (units (unkno wn) date) unknown) (unknown) (no (unknown) (unknown) 06/16/22 06/18/22 (units (unknown) date) 06/18/22 unknown) (unknown) (no (unknown) (unknown) 06/18/22 06:02 (units (unknown) date) unknown) (unknown) (no (unknown) (unknown) 06/18/22 1224 (units ( unknown) date) unknown) (unknown) (no (unknown) (unknown) 06/18/22 (units (unkno wn) date) unknown) (unknown) (no (unknown) (unknown) 06:02 (units (unkno wn) date) unknown) (unknown) (no (unknown) (unknown) 06:30 06/18/22 (units (unknown) date) unknown) (unknown) (no (unknown) (unknown) 09:02 06/18/22 (units (unknown) date) unknown) (unknown) (no (unknown) (unknown) 1. Concern for (units (unknown) date) metastatic disease unknown) (unknown) (no (unknown) (unknown) 10:13 (units (unkno wn) date) unknown) (unknown) (no (unknown) (unknown) 2. Sepsis (units (unkn own) date) unknown) (unknown) (no (unknown) (unknown) 21:57 06:02 06:02 (units (unknown) date) unknown) (unknown) (no (unknown) (unknown) 3. UTI (units (unkno wn) date) unknown) (unknown) (no (unknown) (unknown) 4. Acute (units (unkno wn) date) metabolic unknown) encephalopathy (unknown) (no (unknown) (unknown) 5. Essential (units (u nknown) date) hypertension unknown) (unknown) (no (unknown) (unknown) 6. Atrial (units (unkn own) date) fibrillation unknown) (unknown) (no (unknown) (unknown) 7. Malnutrition, (units (unknown) date) severe unknown) (unknown) (no (unknown) (unknown) 86-year-old male (units (unknown) date) with history of unknown) atrial fibrillation, status post pacemaker (unknown) (no (unknown) (unknown) ? (units (unkno wn) date) unknown) (unknown) (no (unknown) (unknown) ABD: Soft, NT/ND, (units (unknown) date) BT present in all unknown) 4 quadrants, no organomegaly or masses (unknown) (no (unknown) (unknown) ALT 52 H (units (unkno wn) date) unknown) (unknown) (no (unknown) (unknown) ALT (units (unkno wn) date) unknown) (unknown) (no (unknown) (unknown) AST 53 (units (unkno wn) date) unknown) (unknown) (no (unknown) (unknown) AST (units (unkno wn) date) unknown) (unknown) (no (unknown) (unknown) Age/Sex: 86 / M (units (unknown) date) unknown) (unknown) (no (unknown) (unknown) Albumin 2.5 L (units ( unknown) date) unknown) (unknown) (no (unknown) (unknown) Albumin (units (unkno wn) date) unknown) (unknown) (no (unknown) (unknown) Albumin/Globulin (units (unknown) date) Ratio 1.0 unknown) (unknown) (no (unknown) (unknown) Albumin/Globulin (units (unknown) date) Ratio unknown) (unknown) (no (unknown) (unknown) Alkaline (units (unkno wn) date) Phosphatase 401 H unknown) (unknown) (no (unknown) (unknown) Alkaline (units (unkno wn) date) Phosphatase unknown) (unknown) (no (unknown) (unknown) Alpha Fetoprotein (units (unknown) date) 1.8 unknown) (unknown) (no (unknown) (unknown) Alpha Fetoprotein (units (unknown) date) unknown) (unknown) (no (unknown) (unknown) Although he is (units (unknown) date) alert and oriented unknown) today, he appearsto be unable to make complex (unknown) (no (unknown) (unknown) Assessment + Plan (units (unknown) date) narrative: unknown) (unknown) (no (unknown) (unknown) Assessment + Plan (units (unknown) date) unknown) (unknown) (no (unknown) (unknown) Asthma (units (unkno wn) date) unknown) (unknown) (no (unknown) (unknown) Atrial (units (unkno wn) date) fibrillation unknown) (unknown) (no (unknown) (unknown) BP normotensive (units (unknown) date) today. Continue unknown) amlodipine. (unknown) (no (unknown) (unknown) BUN 22 H (units (unkno wn) date) unknown) (unknown) (no (unknown) (unknown) BUN (units (unkno wn) date) unknown) (unknown) (no (unknown) (unknown) BUN/Creatinine (units (unknown) date) Ratio 25.0 H unknown) (unknown) (no (unknown) (unknown) BUN/Creatinine (units (unknown) date) Ratio unknown) (unknown) (no (unknown) (unknown) Baso # (Auto) 0 (units (unknown) date) unknown) (unknown) (no (unknown) (unknown) Baso # (Auto) (units ( unknown) date) unknown) (unknown) (no (unknown) (unknown) Baso % (Auto) 0.6 (units (unknown) date) unknown) (unknown) (no (unknown) (unknown) Baso % (Auto) (units ( unknown) date) unknown) (unknown) (no (unknown) (unknown) Blood Pressure (units (unknown) date) 157/76 H 136/72 unknown) (unknown) (no (unknown) (unknown) CHEST: (units (unkno wn) date) Respiratory unknown) excursions symmetric, CTAB (unknown) (no (unknown) (unknown) 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 (units (u nknown) date) unknown) (unknown) (no (unknown) (unknown) CV: irregularly (units (unknown) date) irregular, no unknown) M/R/G (unknown) (no (unknown) (unknown) Calcium 7.6 L (units ( unknown) date) unknown) (unknown) (no (unknown) (unknown) Calcium (units (unkno wn) date) unknown) (unknown) (no (unknown) (unknown) Carbon Dioxide 27 (units (unknown) date) unknown) (unknown) (no (unknown) (unknown) Carbon Dioxide (units (unknown) date) unknown) (unknown) (no (unknown) (unknown) Chloride 104 (units (u nknown) date) unknown) (unknown) (no (unknown) (unknown) Chloride (units (unkno wn) date) unknown) (unknown) (no (unknown) (unknown) Chronic (units (unkno wn) date) anticoagulation unknown) (unknown) (no (unknown) (unknown) Code status (units (un known) date) unknown) (unknown) (no (unknown) (unknown) Creatinine 0.88 (units (unknown) date) unknown) (unknown) (no (unknown) (unknown) Creatinine (units (unk nown) date) unknown) (unknown) (no (unknown) (unknown) Critical Care (units ( unknown) date) time: unknown) (unknown) (no (unknown) (unknown) : 1935 (units (unknown) date) Acct:[id number] unknown) (unknown) (no (unknown) (unknown) Date of Service: (units (unknown) date) 06/16/22 unknown) (unknown) (no (unknown) (unknown) Deep Vein (units (unkn own) date) Thrombosis/Pulmona unknown) ry Embolism Present on Admission: No (unknown) (no (unknown) (unknown) Diagn[facility] at (units (u nknown) date[facility] Urine culture (unknown) (no (unknown) (unknown) Disposition (units (un known) date) unknown) (unknown) (no (unknown) (unknown) EXTR: warm, well (units (unknown) date) perfused, no C/C/E unknown) (unknown) (no (unknown) (unknown) Eliquis (units (unkno wn) date) unknown) (unknown) (no (unknown) (unknown) Eliquis.? He is (units (unknown) date) status post unknown) pacemaker. (unknown) (no (unknown) (unknown) Eos # (Auto) 100 (units (unknown) date) unknown) (unknown) (no (unknown) (unknown) Eos # (Auto) (units (u nknown) date) unknown) (unknown) (no (unknown) (unknown) Eos % (Auto) 0.7 (units (unknown) date) L unknown) (unknown) (no (unknown) (unknown) Eos % (Auto) (units (u nknown) date) unknown) (unknown) (no (unknown) (unknown) Essential (units (unkn own) date) hypertension unknown) (unknown) (no (unknown) (unknown) Estimated GFR > (units (unknown) date) 60 unknown) (unknown) (no (unknown) (unknown) Estimated GFR (units ( unknown) date) unknown) (unknown) (no (unknown) (unknown) Exam Narrative: (units (unknown) date) unknown) (unknown) (no (unknown) (unknown) Exam (units (unkno wn) date) unknown) (unknown) (no (unknown) (unknown) Family History (units (unknown) date) (Reviewed 06/17/22 unknown) @ 00:47 by JOSE Crystal) (unknown) (no (unknown) (unknown) Father (units (unknown) date) Diabetes mellitus unknown) (unknown) (no (unknown) (unknown) Fraction of (units (un known) date) Inspired Oxygen 21 unknown) (unknown) (no (unknown) (unknown) Full (units (unkno wn) date) unknown) (unknown) (no (unknown) (unknown) GEN:? Pleasant (units (unknown) date) elderly male, unknown) alert and oriented x 2, NAD (unknown) (no (unknown) (unknown) Globulin 2.4 (units (u nknown) date) unknown) (unknown) (no (unknown) (unknown) Globulin (units (unkno wn) date) unknown) (unknown) (no (unknown) (unknown) Glucose 82 (units (unk nown) date) unknown) (unknown) (no (unknown) (unknown) Glucose (units (unkno wn) date) unknown) (unknown) (no (unknown) (unknown) HEENT:NC, Face (units (unknown) date) symmetric unknown) (unknown) (no (unknown) (unknown) Hct 44.2 (units (unkno wn) date) unknown) (unknown) (no (unknown) (unknown) Hct (units (unkno wn) date) unknown) (unknown) (no (unknown) (unknown) He did have rapid (units (unknown) date) AFib on the date unknown) of admission that has not recurred.? Continue (unknown) (no (unknown) (unknown) Hepatocellular (units (unknown) date) carcinoma is also unknown) in the differential.? 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 (unknown) (no (unknown) (unknown) I spent a total (units (unknown) date) of [] minutes of unknown) critical care time on this patient's care (unknown) (no (unknown) (unknown) Interval history: (units (unknown) date) unknown) (unknown) (no (unknown) (unknown) [facility] (units (unknown) date) [address] unknown) [place] [address] (unknown) (no (unknown) (unknown) Laboratory (units (unk nown) date) Results - last 24 unknown) hr (unknown) (no (unknown) (unknown) Labs (units (unkno wn) date) unknown) (unknown) (no (unknown) (unknown) Labs: (units (unkno wn) date) unknown) (unknown) (no (unknown) (unknown) Lymph # (Auto) (units (unknown) date) 500 L unknown) (unknown) (no (unknown) (unknown) Lymph # (Auto) (units (unknown) date) unknown) (unknown) (no (unknown) (unknown) Lymph % (Auto) (units (unknown) date) 7.5 L unknown) (unknown) (no (unknown) (unknown) Lymph % (Auto) (units (unknown) date) unknown) (unknown) (no (unknown) (unknown) MCH 30.8 (units (unkno wn) date) unknown) (unknown) (no (unknown) (unknown) MCH (units (unkno wn) date) unknown) (unknown) (no (unknown) (unknown) MCHC 33.7 (units (unkn own) date) unknown) (unknown) (no (unknown) (unknown) MCHC (units (unkno wn) date) unknown) (unknown) (no (unknown) (unknown) MCV 91.5 (units (unkno wn) date) unknown) (unknown) (no (unknown) (unknown) MCV (units (unkno wn) date) unknown) (unknown) (no (unknown) (unknown) Medical History (units (unknown) date) (Updated 06/17/22 unknown) @ 00:55 by Hawa Michael [facility]) (unknown) (no (unknown) (unknown) [place] # (Auto) (units ( unknown) date) 1100 H unknown) (unknown) (no (unknown) (unknown) [place] # (Auto) (units ( unknown) date) unknown) (unknown) (no (unknown) (unknown) [place] % (Auto) (units ( unknown) date) 15.8 H unknown) (unknown) (no (unknown) (unknown) [place] % (Auto) (units ( unknown) date) unknown) (unknown) (no (unknown) (unknown) Mother (units (unknown) date) No problems noted. unknown) (unknown) (no (unknown) (unknown) NEURO: Alert and (units (unknown) date) oriented x 2, unknown) nonfocal (unknown) (no (unknown) (unknown) Narrative (units (unkn own) date) unknown) (unknown) (no (unknown) (unknown) Neut # (Auto) (units ( unknown) date) 5300 unknown) (unknown) (no (unknown) (unknown) Neut # (Auto) (units ( unknown) date) unknown) (unknown) (no (unknown) (unknown) Neut % (Auto) (units ( unknown) date) 75.4 H unknown) (unknown) (no (unknown) (unknown) Neut % (Auto) (units ( unknown) date) unknown) (unknown) (no (unknown) (unknown) Objective (units (unkn own) date) unknown) (unknown) (no (unknown) (unknown) Oxygen Delivery (units (unknown) date) Method Room Air unknown) (unknown) (no (unknown) (unknown) Oxygen Flow Rate (units (unknown) date) 0 unknown) (unknown) (no (unknown) (unknown) PFSH (units (unkno wn) date) unknown) (unknown) (no (unknown) (unknown) Pacemaker (units (unkn own) date) unknown) (unknown) (no (unknown) (unknown) Patient appears (units (unknown) date) to have ongoing unknown) mild encephalopathy, but overall is improved.? 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 He has lost 30 lb (unknown) (no (unknown) (unknown) Patient: (units (unkno wn) date) Yoseph Cardoso G unknown) MR#: [id number] (unknown) (no (unknown) (unknown) Pending further (units (unknown) date) determination of unknown) patient's goals of care. PT is recommending (unknown) (no (unknown) (unknown) Phosphorus 3.2 (units (unknown) date) unknown) (unknown) (no (unknown) (unknown) Phosphorus (units (unk nown) date) unknown) (unknown) (no (unknown) (unknown) Plt Count 189 (units ( unknown) date) unknown) (unknown) (no (unknown) (unknown) Plt Count (units (unkn own) date) unknown) (unknown) (no (unknown) (unknown) Potassium 4.3 (units ( unknown) date) unknown) (unknown) (no (unknown) (unknown) Potassium (units (unkn own) date) unknown) (unknown) (no (unknown) (unknown) Progress Note (units ( unknown) date) unknown) (unknown) (no (unknown) (unknown) Prophylaxis (units (un known) date) unknown) (unknown) (no (unknown) (unknown) Provider: (units (unkn own) date) Roxana Parker MD unknown) (unknown) (no (unknown) (unknown) Pulse Oximetry 97 (units (unknown) date) 96 97 unknown) (unknown) (no (unknown) (unknown) Pulse Rate 61 86 (units (unknown) date) 95 H unknown) (unknown) (no (unknown) (unknown) Quality (units (unkno wn) date) unknown) (unknown) (no (unknown) (unknown) RBC 4.83 (units (unkno wn) date) unknown) (unknown) (no (unknown) (unknown) RBC (units (unkno wn) date) unknown) (unknown) (no (unknown) (unknown) RDW 14.4 (units (unkno wn) date) unknown) (unknown) (no (unknown) (unknown) RDW (units (unkno wn) date) unknown) (unknown) (no (unknown) (unknown) Respiratory Rate (units (unknown) date) 17 16 16 unknown) (unknown) (no (unknown) (unknown) SKIN: warm and (units (unknown) date) dry, no rash unknown) (unknown) (no (unknown) (unknown) SNF rehab. (units (unk nown) date) unknown) (unknown) (no (unknown) (unknown) SaO2/FiO2 Ratio (units (unknown) date) 471 unknown) (unknown) (no (unknown) (unknown) Signed (units (unkno wn) date) By:<Electronically unknown) signed by Roxana Parker MD> (unknown) (no (unknown) (unknown) Smoking Status: (units (unknown) date) Never smoker unknown) (unknown) (no (unknown) (unknown) Social History (units (unknown) date) (Reviewed 06/16/22 unknown) @ 14:04 by Matt Swartz MD) (unknown) (no (unknown) (unknown) Sodium 138 (units (unk nown) date) unknown) (unknown) (no (unknown) (unknown) Sodium (units (unkno wn) date) unknown) (unknown) (no (unknown) (unknown) Subjective (units (unk nown) date) unknown) (unknown) (no (unknown) (unknown) Surgical History (units (unknown) date) (Updated 06/16/22 unknown) @ 21:27 by Hawa Michael [facility]) (unknown) (no (unknown) (unknown) Suspect this (units (u nknown) date) reflected SIRS unknown) rather than sepsis.? However, he does have evidence (unknown) (no (unknown) (unknown) Temperature 96.8 (units (unknown) date) F L 96.8 F L unknown) (unknown) (no (unknown) (unknown) There were also (units (unknown) date) numerous small unknown) hypoattenuating lesions throughout spleen which (unknown) (no (unknown) (unknown) Time Spent With (units (unknown) date) Patient unknown) (unknown) (no (unknown) (unknown) Today patient (units ( unknown) date) reports no unknown) recollection of the over 30 minute conversation we had (unknown) (no (unknown) (unknown) Total Bilirubin (units (unknown) date) 2.0 H unknown) (unknown) (no (unknown) (unknown) Total Bilirubin (units (unknown) date) unknown) (unknown) (no (unknown) (unknown) Total Protein 4.9 (units (unknown) date) L unknown) (unknown) (no (unknown) (unknown) Total Protein (units ( unknown) date) unknown) (unknown) (no (unknown) (unknown) VTE (units (unkno wn) date) unknown) (unknown) (no (unknown) (unknown) Vital Signs (units (un known) date) unknown) (unknown) (no (unknown) (unknown) WBC 7.0 (units (unkno wn) date) unknown) (unknown) (no (unknown) (unknown) WBC (units (unkno wn) date) unknown) (unknown) (no (unknown) (unknown) [place]. (units (unkno wn) date) unknown) (unknown) (no (unknown) (unknown) [Embedded Image (units (unknown) date) Not Available] unknown) (unknown) (no (unknown) (unknown) above.? Await (units ( unknown) date) dietitian unknown) recommendation. Will add MVI and thiamine. (unknown) (no (unknown) (unknown) ago. 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 He now has (units (unknown) date) multifocal lesions unknown) in the liver and spleen on imaging.? (unknown) (no (unknown) (unknown) alcohol intake: (units (unknown) date) current unknown) (unknown) (no (unknown) (unknown) ambivalent. He (units (unknown) date) wants to discuss unknown) things further w/his and children. If he (unknown) (no (unknown) (unknown) any ill symptoms (units (unknown) date) such as fevers or unknown) chills.? His white blood cell count remains (unknown) (no (unknown) (unknown) approximately 30 (units (unknown) date) lb over the past unknown) several months. He is a history of a nevoid (unknown) (no (unknown) (unknown) children. He (units (u nknown) date) reports he has had unknown) ?86 good years?. He then asked me to leave so (unknown) (no (unknown) (unknown) continues to have (units (unknown) date) encephalopathy, unknown) MRI brain should be performed to assess for (unknown) (no (unknown) (unknown) decisions at this (units (unknown) date) point.? Will await unknown) further input from family. (unknown) (no (unknown) (unknown) decreased (units (unkn own) date) appetite and night unknown) sweats. He did have occasional mild abdominal (unknown) (no (unknown) (unknown) discomfort which (units (unknown) date) he attributed to unknown) his chronic constipation. He lost (unknown) (no (unknown) (unknown) encephalopathy/co (units (unknown) date) gnitive unknown) impairment, essential hypertension, AFib, and (unknown) (no (unknown) (unknown) he could eat his (units (unknown) date) breakfast. unknown) (unknown) (no (unknown) (unknown) here is negative (units (unknown) date) thus far.? unknown) Continue Zosyn for now.? Await culture results from (unknown) (no (unknown) (unknown) history of (units (unk nown) date) hepatitis.? In the unknown) differential was also infectious etiology.? That (unknown) (no (unknown) (unknown) household (units (unkn own) date) members: spouse unknown) (unknown) (no (unknown) (unknown) includes (units (unkno wn) date) metastatic unknown) disease, multifocal hepatocellular carcinoma or infection. (unknown) (no (unknown) (unknown) infectious or (units ( unknown) date) inflammatory unknown) pulmonary opacities.? [id number] (unknown) (no (unknown) (unknown) intervention or (units (unknown) date) not. He wants to unknown) discuss this further with his and (unknown) (no (unknown) (unknown) liver and spleen (units (unknown) date) being unknown) significantly heterogeneous.? Patient underwent abdominal (unknown) (no (unknown) (unknown) malnutrition.? (units ( unknown) date) Head CT was unknown) unrevealing.? CT scan of the chest revealed bibasilar (unknown) (no (unknown) (unknown) melanoma which (units (unknown) date) was resected from unknown) his right temporal scalp approximately 2 years (unknown) (no (unknown) (unknown) negative to (units (un known) date) date.? He is unknown) afebrile with a normal white blood cell count. (unknown) (no (unknown) (unknown) normal.? It is (units (unknown) date) more likely this unknown) is malignant in nature.? Discussed with the pa (unknown) (no (unknown) (unknown) of UTI.? He (units (un known) date) remains on empiric unknown) Zosyn therapy.? Blood and urine cultures are (unknown) (no (unknown) (unknown) onset of symptoms (units (unknown) date) approximately 6 unknown) weeks prior to admission. He developed (unknown) (no (unknown) (unknown) over the last few (units (unknown) date) months.? Highly unknown) concerning for metastatic disease as noted (unknown) (no (unknown) (unknown) pelvic CT which (units (unknown) date) revealed multiple unknown) ill-defined hypoattenuating mass lesions (unknown) (no (unknown) (unknown) placement, on (units ( unknown) date) chronic Eliquis, unknown) hypertension, and melanoma who was admitted (unknown) (no (unknown) (unknown) reiterated that (units (unknown) date) his choices unknown) include biopsy to determine type of cancer and (unknown) (no (unknown) (unknown) reports he is (units ( unknown) date) uncertain whether unknown) he would like to pursue biopsy and potential (unknown) (no (unknown) (unknown) [id number] (units (unknown) date) n-left pleural unknown) effusions.? There is additional note of the (unknown) (no (unknown) (unknown) said, patient (units ( unknown) date) reports a slowly unknown) progressive onset of symptoms.? 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 (unknown) (no (unknown) (unknown) treatment options (units (unknown) date) if he would unknown) consider treatment or palliative care. He remains (unknown) (no (unknown) (unknown) well as (units (unkno wn) date) infectious unknown) etiology such as microabscess. Patient reported insidious (unknown) (no (unknown) (unknown) were also (units (unkn own) date) nonspecific and unknown) have a differential including neoplastic process as (unknown) (no (unknown) (unknown) yesterday in (units (u nknown) date) regard to concern unknown) for metastatic cancer or new malignancy. He (unknown) (no (unknown) (unknown) yesterday with (units (unknown) date) sepsis without unknown) septic shock, transaminitis, UTI, (unknown) (no (unknown) (unknown) yesterday. Today, (units (unknown) date) pt does not have unknown) recollection of the conversation.? I have Result panel 247 (unknown) (no date) (unknown) (unknown) (no value) (units (un known) unknown) (unknown) (no date) (unknown) (unknown) NO GROWTH (units (unk nown) AFTER 48 unknown) HOURS Result panel 248 (unknown) (no date) (unknown) (unknown) (no value) (units (un known) unknown) (unknown) (no date) (unknown) (unknown) NO GROWTH (units (unk nown) AFTER 48 unknown) HOURS Result panel 249 (unknown) (no date) (unknown) (unknown) 0.8 % (unkn own) (unknown) (no date) (unknown) (unknown) 0.9 % (unkn own) (unknown) (no date) (unknown) (unknown) 100 /ul (unkn own) (unknown) (no date) (unknown) (unknown) 100 /ul (unkn own) (unknown) (no date) (unknown) (unknown) 1000 /ul (unkn own) (unknown) (no date) (unknown) (unknown) 14.3 % (unkn own) (unknown) (no date) (unknown) (unknown) 14.9 g/dl (unkn own) (unknown) (no date) (unknown) (unknown) 15.4 % (unkn own) (unknown) (no date) (unknown) (unknown) 185 x10 3/ul (unkn own) (unknown) (no date) (unknown) (unknown) 30.9 pg (unkn own) (unknown) (no date) (unknown) (unknown) 34.2 % (unkn own) (unknown) (no date) (unknown) (unknown) 4.83 x10 6/ul (unkn own) (unknown) (no date) (unknown) (unknown) 400 /ul (unkn own) (unknown) (no date) (unknown) (unknown) 43.6 % (unkn own) (unknown) (no date) (unknown) (unknown) 5100 /ul (unkn own) (unknown) (no date) (unknown) (unknown) 6.6 % (unkn own) (unknown) (no date) (unknown) (unknown) 6.7 x10 3/ul (unkn own) (unknown) (no date) (unknown) (unknown) 76.3 % (unkn own) (unknown) (no date) (unknown) (unknown) 90.3 fl (unkn own) Result panel 250 (unknown) (no date) (unknown) (unknown) 3.3 mg/dl (unkn own) Result panel 251 (unknown) (no date) (unknown) (unknown) > 60 ml/min (unkn own) (unknown) (no date) (unknown) (unknown) > 60 ml/min (unkn own) (unknown) (no date) (unknown) (unknown) 0.95 mg/dl (unkn own) (unknown) (no date) (unknown) (unknown) 1.0 (units unknown) (unknown) (unknown) (no date) (unknown) (unknown) 102 mmol/l (unkn own) (unknown) (no date) (unknown) (unknown) 133 mmol/l (unkn own) (unknown) (no date) (unknown) (unknown) 2.4 mg/dl (unkn own) (unknown) (no date) (unknown) (unknown) 2.5 g/dl (unkn own) (unknown) (no date) (unknown) (unknown) 2.6 g/dl (unkn own) (unknown) (no date) (unknown) (unknown) 25 mg/dl (unkn own) (unknown) (no date) (unknown) (unknown) 25 mmol/l (unkn own) (unknown) (no date) (unknown) (unknown) 26.3 (units unknown) (unknown) (unknown) (no date) (unknown) (unknown) 4.4 mmol/l (unkn own) (unknown) (no date) (unknown) (unknown) 463 u/l (unkn own) (unknown) (no date) (unknown) (unknown) 5.1 g/dl (unkn own) (unknown) (no date) (unknown) (unknown) 52 iu/l (unkn own) (unknown) (no date) (unknown) (unknown) 59 iu/l (unkn own) (unknown) (no date) (unknown) (unknown) 7.7 mg/dl (unkn own) (unknown) (no date) (unknown) (unknown) 86 mg/dl (unkn own) (unknown) (no date) (unknown) (unknown) 86 mg/dl (unkn own) Result panel 252 (unknown) (no date) (unknown) (unknown) Comment (units (unkn own) unknown) (unknown) (no date) (unknown) (unknown) Comment (units (unkn own) unknown) (unknown) (no date) (unknown) (unknown) Negative (units (unkn own) unknown) (unknown) (no date) (unknown) (unknown) Non Reactive (units ( unknown) unknown) Result panel 253 (unknown) (no (unknown) (unknown) (no value) (units (unk nown) date) unknown) (unknown) (no (unknown) (unknown) (past 8 hours): (units (unknown) date) unknown) (unknown) (no (unknown) (unknown) [id number] (units (unkno wn) date) unknown) (unknown) (no (unknown) (unknown) 06/16/22 06/19/22 (units (unknown) date) 06/19/22 unknown) (unknown) (no (unknown) (unknown) 06/19/22 06:08 (units (unknown) date) unknown) (unknown) (no (unknown) (unknown) 06/19/22 (units (unkno wn) date) unknown) (unknown) (no (unknown) (unknown) 04:40 06/19/22 (units (unknown) date) unknown) (unknown) (no (unknown) (unknown) 06:08 (units (unkno wn) date) unknown) (unknown) (no (unknown) (unknown) 08:26 (units (unkno wn) date) unknown) (unknown) (no (unknown) (unknown) 1. Concern for (units (unknown) date) metastatic disease unknown) (unknown) (no (unknown) (unknown) 2. Sepsis (units (unkn own) date) unknown) (unknown) (no (unknown) (unknown) 21:57 06:08 06:08 (units (unknown) date) unknown) (unknown) (no (unknown) (unknown) 3. UTI (units (unkno wn) date) unknown) (unknown) (no (unknown) (unknown) 4. Acute (units (unkno wn) date) metabolic unknown) encephalopathy (unknown) (no (unknown) (unknown) 5. Essential (units (u nknown) date) hypertension unknown) (unknown) (no (unknown) (unknown) 6. Atrial (units (unkn own) date) fibrillation unknown) (unknown) (no (unknown) (unknown) 7. Malnutrition, (units (unknown) date) severe unknown) (unknown) (no (unknown) (unknown) ? (units (unkno wn) date) unknown) (unknown) (no (unknown) (unknown) ABD: Soft, NT/ND, (units (unknown) date) BT present in all unknown) 4 quadrants, no organomegaly or masses (unknown) (no (unknown) (unknown) ALT 52 H (units (unkno wn) date) unknown) (unknown) (no (unknown) (unknown) ALT (units (unkno wn) date) unknown) (unknown) (no (unknown) (unknown) AST 59 (units (unkno wn) date) unknown) (unknown) (no (unknown) (unknown) AST (units (unkno wn) date) unknown) (unknown) (no (unknown) (unknown) Age/Sex: 86 / M (units (unknown) date) unknown) (unknown) (no (unknown) (unknown) Albumin 2.6 L (units ( unknown) date) unknown) (unknown) (no (unknown) (unknown) Albumin (units (unkno wn) date) unknown) (unknown) (no (unknown) (unknown) Albumin/Globulin (units (unknown) date) Ratio 1.0 unknown) (unknown) (no (unknown) (unknown) Albumin/Globulin (units (unknown) date) Ratio unknown) (unknown) (no (unknown) (unknown) Alkaline (units (unkno wn) date) Phosphatase 463 H unknown) (unknown) (no (unknown) (unknown) Alkaline (units (unkno wn) date) Phosphatase unknown) (unknown) (no (unknown) (unknown) Although he is (units (unknown) date) alert and oriented unknown) today, he appearsto be unable to make complex (unknown) (no (unknown) (unknown) Assessment + Plan (units (unknown) date) narrative: unknown) (unknown) (no (unknown) (unknown) Assessment + Plan (units (unknown) date) unknown) (unknown) (no (unknown) (unknown) Asthma (units (unkno wn) date) unknown) (unknown) (no (unknown) (unknown) Atrial (units (unkno wn) date) fibrillation unknown) (unknown) (no (unknown) (unknown) BP normotensive (units (unknown) date) today. Continue unknown) amlodipine. (unknown) (no (unknown) (unknown) BUN 25 H (units (unkno wn) date) unknown) (unknown) (no (unknown) (unknown) BUN (units (unkno wn) date) unknown) (unknown) (no (unknown) (unknown) BUN/Creatinine (units (unknown) date) Ratio 26.3 H unknown) (unknown) (no (unknown) (unknown) BUN/Creatinine (units (unknown) date) Ratio unknown) (unknown) (no (unknown) (unknown) Baso # (Auto) 100 (units (unknown) date) unknown) (unknown) (no (unknown) (unknown) Baso # (Auto) (units ( unknown) date) unknown) (unknown) (no (unknown) (unknown) Baso % (Auto) 0.9 (units (unknown) date) unknown) (unknown) (no (unknown) (unknown) Baso % (Auto) (units ( unknown) date) unknown) (unknown) (no (unknown) (unknown) Blood Pressure (units (unknown) date) 156/76 H unknown) (unknown) (no (unknown) (unknown) CHEST: (units (unkno wn) date) Respiratory unknown) excursions symmetric, CTAB (unknown) (no (unknown) (unknown) 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 (units (u nknown) date) unknown) (unknown) (no (unknown) (unknown) CV: irregularly (units (unknown) date) irregular, no unknown) M/R/G (unknown) (no (unknown) (unknown) Calcium 7.7 L (units ( unknown) date) unknown) (unknown) (no (unknown) (unknown) Calcium (units (unkno wn) date) unknown) (unknown) (no (unknown) (unknown) Carbon Dioxide 25 (units (unknown) date) unknown) (unknown) (no (unknown) (unknown) Carbon Dioxide (units (unknown) date) unknown) (unknown) (no (unknown) (unknown) Chloride 102 (units (u nknown) date) unknown) (unknown) (no (unknown) (unknown) Chloride (units (unkno wn) date) unknown) (unknown) (no (unknown) (unknown) Chronic (units (unkno wn) date) anticoagulation unknown) (unknown) (no (unknown) (unknown) Code status (units (un known) date) unknown) (unknown) (no (unknown) (unknown) Creatinine 0.95 (units (unknown) date) unknown) (unknown) (no (unknown) (unknown) Creatinine (units (unk nown) date) unknown) (unknown) (no (unknown) (unknown) Critical Care (units ( unknown) date) time: unknown) (unknown) (no (unknown) (unknown) : 1935 (units (unknown) date) Acct:[id number] unknown) (unknown) (no (unknown) (unknown) Date of Service: (units (unknown) date) 06/16/22 unknown) (unknown) (no (unknown) (unknown) Deep Vein (units (unkn own) date) Thrombosis/Pulmona unknown) ry Embolism Present on Admission: No (unknown) (no (unknown) (unknown) [facility]units (u nknown) date[facility] Urine culture (unknown) (no (unknown) (unknown) Disposition (units (un known) date) unknown) (unknown) (no (unknown) (unknown) EXTR: warm, well (units (unknown) date) perfused, no C/C/E unknown) (unknown) (no (unknown) (unknown) Eliquis (units (unkno wn) date) unknown) (unknown) (no (unknown) (unknown) Eliquis.? He is (units (unknown) date) status post unknown) pacemaker. (unknown) (no (unknown) (unknown) Eos # (Auto) 100 (units (unknown) date) unknown) (unknown) (no (unknown) (unknown) Eos # (Auto) (units (u nknown) date) unknown) (unknown) (no (unknown) (unknown) Eos % (Auto) 0.8 (units (unknown) date) L unknown) (unknown) (no (unknown) (unknown) Eos % (Auto) (units (u nknown) date) unknown) (unknown) (no (unknown) (unknown) Essential (units (unkn own) date) hypertension unknown) (unknown) (no (unknown) (unknown) Estimated GFR > (units (unknown) date) 60 unknown) (unknown) (no (unknown) (unknown) Estimated GFR (units ( unknown) date) unknown) (unknown) (no (unknown) (unknown) Exam Narrative: (units (unknown) date) unknown) (unknown) (no (unknown) (unknown) Exam (units (unkno wn) date) unknown) (unknown) (no (unknown) (unknown) Family History (units (unknown) date) (Reviewed 06/17/22 unknown) @ 00:47 by Hawa Michael [facility]) (unknown) (no (unknown) (unknown) Father (units (unknown) date) Diabetes mellitus unknown) (unknown) (no (unknown) (unknown) Fraction of (units (un known) date) Inspired Oxygen 21 unknown) (unknown) (no (unknown) (unknown) Full (units (unkno wn) date) unknown) (unknown) (no (unknown) (unknown) GEN:? Pleasant (units (unknown) date) elderly male, unknown) alert and oriented x 2, NAD (unknown) (no (unknown) (unknown) Globulin 2.5 (units (u nknown) date) unknown) (unknown) (no (unknown) (unknown) Globulin (units (unkno wn) date) unknown) (unknown) (no (unknown) (unknown) Glucose 86 (units (unk nown) date) unknown) (unknown) (no (unknown) (unknown) Glucose (units (unkno wn) date) unknown) (unknown) (no (unknown) (unknown) HEENT:NC, Face (units (unknown) date) symmetric unknown) (unknown) (no (unknown) (unknown) Hct 43.6 (units (unkno wn) date) unknown) (unknown) (no (unknown) (unknown) Hct (units (unkno wn) date) unknown) (unknown) (no (unknown) (unknown) He did have rapid (units (unknown) date) AFib on the date unknown) of admission that has not recurred.? Continue (unknown) (no (unknown) (unknown) Hep B Core IgM Ab (units (unknown) date) Negative unknown) (unknown) (no (unknown) (unknown) Hep B Core IgM Ab (units (unknown) date) unknown) (unknown) (no (unknown) (unknown) Hep Bs Antigen (units (unknown) date) Negative unknown) (unknown) (no (unknown) (unknown) Hep Bs Antigen (units (unknown) date) unknown) (unknown) (no (unknown) (unknown) Hep C Ab (units (unkno wn) date) Signal/Cutoff unknown) Comment (unknown) (no (unknown) (unknown) Hep C Ab (units (unkno wn) date) Signal/Cutoff unknown) (unknown) (no (unknown) (unknown) Hepatitis A IgM (units (unknown) date) Ab Negative unknown) (unknown) (no (unknown) (unknown) Hepatitis A IgM (units (unknown) date) Ab unknown) (unknown) (no (unknown) (unknown) Hepatitis C (units (un known) date) Antibody Non unknown) reactive (unknown) (no (unknown) (unknown) Hepatitis C (units (un known) date) Antibody unknown) (unknown) (no (unknown) (unknown) Hepatocellular (units (unknown) date) carcinoma is also unknown) in the differential.? 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 (unknown) (no (unknown) (unknown) I spent a total (units (unknown) date) of [] minutes of unknown) critical care time on this patient's care (unknown) (no (unknown) (unknown) [facility] (units (unknown) date) [address] unknown) [place] [id number] (unknown) (no (unknown) (unknown) Laboratory (units (unk nown) date) Results - last unknown) hr (unknown) (no (unknown) (unknown) Labs (units (unkno wn) date) unknown) (unknown) (no (unknown) (unknown) Labs: (units (unkno wn) date) unknown) (unknown) (no (unknown) (unknown) Lymph # (Auto) (units (unknown) date) 400 L unknown) (unknown) (no (unknown) (unknown) Lymph # (Auto) (units (unknown) date) unknown) (unknown) (no (unknown) (unknown) Lymph % (Auto) (units (unknown) date) 6.6 L unknown) (unknown) (no (unknown) (unknown) Lymph % (Auto) (units (unknown) date) unknown) (unknown) (no (unknown) (unknown) MCH 30.9 (units (unkno wn) date) unknown) (unknown) (no (unknown) (unknown) MCH (units (unkno wn) date) unknown) (unknown) (no (unknown) (unknown) MCHC 34.2 (units (unkn own) date) unknown) (unknown) (no (unknown) (unknown) MCHC (units (unkno wn) date) unknown) (unknown) (no (unknown) (unknown) MCV 90.3 (units (unkno wn) date) unknown) (unknown) (no (unknown) (unknown) MCV (units (unkno wn) date) unknown) (unknown) (no (unknown) (unknown) Medical History (units (unknown) date) (Updated 06/17/22 unknown) @ 00:55 by JOSE Crystal) (unknown) (no (unknown) (unknown) [place] # (Auto) (units ( unknown) date) 1000 H unknown) (unknown) (no (unknown) (unknown) [place] # (Auto) (units ( unknown) date) unknown) (unknown) (no (unknown) (unknown) [place] % (Auto) (units ( unknown) date) 15.4 H unknown) (unknown) (no (unknown) (unknown) [place] % (Auto) (units ( unknown) date) unknown) (unknown) (no (unknown) (unknown) Mother (units (unknown) date) No problems noted. unknown) (unknown) (no (unknown) (unknown) NEURO: Alert and (units (unknown) date) oriented x 2, unknown) nonfocal (unknown) (no (unknown) (unknown) Narrative (units (unkn own) date) unknown) (unknown) (no (unknown) (unknown) Neut # (Auto) (units ( unknown) date) 5100 unknown) (unknown) (no (unknown) (unknown) Neut # (Auto) (units ( unknown) date) unknown) (unknown) (no (unknown) (unknown) Neut % (Auto) (units ( unknown) date) 76.3 H unknown) (unknown) (no (unknown) (unknown) Neut % (Auto) (units ( unknown) date) unknown) (unknown) (no (unknown) (unknown) Objective (units (unkn own) date) unknown) (unknown) (no (unknown) (unknown) Oxygen Delivery (units (unknown) date) Method Room Air unknown) (unknown) (no (unknown) (unknown) Oxygen Flow Rate (units (unknown) date) 0 unknown) (unknown) (no (unknown) (unknown) PFSH (units (unkno wn) date) unknown) (unknown) (no (unknown) (unknown) Pacemaker (units (unkn own) date) unknown) (unknown) (no (unknown) (unknown) Patient appears (units (unknown) date) to have ongoing unknown) mild encephalopathy, but overall is improved.? 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 He has lost 30 lb (unknown) (no (unknown) (unknown) Patient: (units (unkno wn) date) Yoseph Cardoso unknown) MR#: [id number] (unknown) (no (unknown) (unknown) Pending further (units (unknown) date) determination of unknown) patient's goals of care. PT is recommending (unknown) (no (unknown) (unknown) Phosphorus 3.3 (units (unknown) date) unknown) (unknown) (no (unknown) (unknown) Phosphorus (units (unk nown) date) unknown) (unknown) (no (unknown) (unknown) Plt Count 185 (units ( unknown) date) unknown) (unknown) (no (unknown) (unknown) Plt Count (units (unkn own) date) unknown) (unknown) (no (unknown) (unknown) Potassium 4.4 (units ( unknown) date) unknown) (unknown) (no (unknown) (unknown) Potassium (units (unkn own) date) unknown) (unknown) (no (unknown) (unknown) Progress Note (units ( unknown) date) unknown) (unknown) (no (unknown) (unknown) Prophylaxis (units (un known) date) unknown) (unknown) (no (unknown) (unknown) Provider: (units (unkn own) date) Tommy Wells unknown) D.O. (unknown) (no (unknown) (unknown) Pulse Oximetry 96 (units (unknown) date) 97 unknown) (unknown) (no (unknown) (unknown) Pulse Rate 77 86 (units (unknown) date) unknown) (unknown) (no (unknown) (unknown) Quality (units (unkno wn) date) unknown) (unknown) (no (unknown) (unknown) RBC 4.83 (units (unkno wn) date) unknown) (unknown) (no (unknown) (unknown) RBC (units (unkno wn) date) unknown) (unknown) (no (unknown) (unknown) RDW 14.3 (units (unkno wn) date) unknown) (unknown) (no (unknown) (unknown) RDW (units (unkno wn) date) unknown) (unknown) (no (unknown) (unknown) Respiratory Rate (units (unknown) date) 18 14 unknown) (unknown) (no (unknown) (unknown) SKIN: warm and (units (unknown) date) dry, no rash unknown) (unknown) (no (unknown) (unknown) SNF rehab. (units (unk nown) date) unknown) (unknown) (no (unknown) (unknown) SaO2/FiO2 Ratio (units (unknown) date) 471 unknown) (unknown) (no (unknown) (unknown) Signed By: (units (unk nown) date) unknown) (unknown) (no (unknown) (unknown) Smoking Status: (units (unknown) date) Never smoker unknown) (unknown) (no (unknown) (unknown) Social History (units (unknown) date) (Reviewed 06/16/22 unknown) @ 14:04 by Matt Swartz MD) (unknown) (no (unknown) (unknown) Sodium 133 L (units (u nknown) date) unknown) (unknown) (no (unknown) (unknown) Sodium (units (unkno wn) date) unknown) (unknown) (no (unknown) (unknown) Surgical History (units (unknown) date) (Updated 06/16/22 unknown) @ 21:27 by Hawa Michael [facility]-) (unknown) (no (unknown) (unknown) Suspect this (units (u nknown) date) reflected SIRS unknown) rather than sepsis.? However, he does have evidence (unknown) (no (unknown) (unknown) Temperature 97.0 (units (unknown) date) F L unknown) (unknown) (no (unknown) (unknown) Time Spent With (units (unknown) date) Patient unknown) (unknown) (no (unknown) (unknown) Total Bilirubin (units (unknown) date) 2.4 H unknown) (unknown) (no (unknown) (unknown) Total Bilirubin (units (unknown) date) unknown) (unknown) (no (unknown) (unknown) Total Protein 5.1 (units (unknown) date) L unknown) (unknown) (no (unknown) (unknown) Total Protein (units ( unknown) date) unknown) (unknown) (no (unknown) (unknown) VTE (units (unkno wn) date) unknown) (unknown) (no (unknown) (unknown) Vital Signs (units (un known) date) unknown) (unknown) (no (unknown) (unknown) WBC 6.7 (units (unkno wn) date) unknown) (unknown) (no (unknown) (unknown) WBC (units (unkno wn) date) unknown) (unknown) (no (unknown) (unknown) [place]. (units (unkno wn) date) unknown) (unknown) (no (unknown) (unknown) [Embedded Image (units (unknown) date) Not Available] unknown) (unknown) (no (unknown) (unknown) above.? Await (units ( unknown) date) dietitian unknown) recommendation. Will add MVI and thiamine. (unknown) (no (unknown) (unknown) ago.? He now has (units (unknown) date) multifocal lesions unknown) in the liver and spleen on imaging.? (unknown) (no (unknown) (unknown) alcohol intake: (units (unknown) date) current unknown) (unknown) (no (unknown) (unknown) ambivalent. He (units (unknown) date) wants to discuss unknown) things further w/his and children. If he (unknown) (no (unknown) (unknown) any ill symptoms (units (unknown) date) such as fevers or unknown) chills.? His white blood cell count remains (unknown) (no (unknown) (unknown) continues to have (units (unknown) date) encephalopathy, unknown) MRI brain should be performed to assess for (unknown) (no (unknown) (unknown) decisions at this (units (unknown) date) point.? Will await unknown) further input from family. (unknown) (no (unknown) (unknown) here is negative (units (unknown) date) thus far.? unknown) Continue Zosyn for now.? Await culture results from (unknown) (no (unknown) (unknown) history of (units (unk nown) date) hepatitis.? In the unknown) differential was also infectious etiology.? That (unknown) (no (unknown) (unknown) household (units (unkn own) date) members: spouse unknown) (unknown) (no (unknown) (unknown) negative to (units (un known) date) date.? He is unknown) afebrile with a normal white blood cell count. (unknown) (no (unknown) (unknown) normal.? It is (units (unknown) date) more likely this unknown) is malignant in nature.? Discussed with the (unknown) (no (unknown) (unknown) of UTI.? He (units (un known) date) remains on empiric unknown) Zosyn therapy.? Blood and urine cultures are (unknown) (no (unknown) (unknown) over the last few (units (unknown) date) months.? 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 He has not had (unknown) (no (unknown) (unknown) today; this time (units (unknown) date) is exclusive of unknown) procedural time. (unknown) (no (unknown) (unknown) treatment options (units (unknown) date) if he would unknown) consider treatment or palliative care. He remains (unknown) (no (unknown) (unknown) yesterday. Today, (units (unknown) date) pt does not have unknown) recollection of the conversation.? I have Result panel 254 (unknown) (no date) (unknown) (unknown) (no value) (units (un known) unknown) (unknown) (no date) (unknown) (unknown) NO GROWTH (units (unk nown) AFTER 72 unknown) HOURS Result panel 255 (unknown) (no date) (unknown) (unknown) (no value) (units (un known) unknown) (unknown) (no date) (unknown) (unknown) NO GROWTH (units (unk nown) AFTER 72 unknown) HOURS Result panel 256 (unknown) (no (unknown) (unknown) (no value) (units (unk nown) date) unknown) (unknown) (no (unknown) (unknown) [id number] (units (unkno wn) date) unknown) (unknown) (no (unknown) (unknown) 06/21/22 (units (unkno wn) date) unknown) (unknown) (no (unknown) (unknown) [address] [place] [address] (units (unknown) date) unknown) (unknown) (no (unknown) (unknown) Accession (units (unkn own) date) Number: unknown) [id number] (unknown) (no (unknown) (unknown) Age/Sex: 86 / M (units (unknown) date) Date of Service: unknown) (unknown) (no (unknown) (unknown) TAYLOR Moreno (units ( unknown) date) [id number] unknown) (unknown) (no (unknown) (unknown) Approved by: (units (u nknown) date) Johnathan Lane unknown) Azar on 06/21/2022 at 15:07 (unknown) (no (unknown) (unknown) Biopsy site: (units (u nknown) date) Posterior right unknown) lobe of the liver (unknown) (no (unknown) (unknown) COMPARISON: (units (un known) date) [facility], unknown) CT, CT ABDOMEN PELVIS W CON, 06/16/2022, 21:22. (unknown) (no (unknown) (unknown) CT Scan Report (units (unknown) date) unknown) (unknown) (no (unknown) (unknown) CT guidance, a (units (unknown) date) core biopsy unknown) trocar and needle set was advanced to the biopsy (unknown) (no (unknown) (unknown) Complications: (units (unknown) date) None. unknown) (unknown) (no (unknown) (unknown) : 1935 (units (unknown) date) Acct:[id number] unknown) (unknown) (no (unknown) (unknown) Dictated by: (units (u nknown) date) Johnathan Lane unknown) Azar on 06/21/2022 at 15:00 (unknown) (no (unknown) (unknown) FINDINGS: (units (unkn own) date) unknown) (unknown) (no (unknown) (unknown) IMPRESSION: (units (un known) date) Successful unknown) CT-guided biopsy of the previously demonstrated lesion (unknown) (no (unknown) (unknown) INDICATIONS: (units (u nknown) date) liver lesion, unknown) history of melanoma (unknown) (no (unknown) (unknown) [facility] (units (unknown) date) unknown) (unknown) (no (unknown) (unknown) Loc: 206-1 (units ( unknown) date) unknown) (unknown) (no (unknown) (unknown) Medications: 1% (units (unknown) date) lidocaine for unknown) local anaesthesia. IV Fentanyl and Versed for (unknown) (no (unknown) (unknown) Needle: 18 gauge (units (unknown) date) biopsy needle unknown) with introducer trocar. (unknown) (no (unknown) (unknown) Number of (units (unkn own) date) passes: 4 unknown) (unknown) (no (unknown) (unknown) Ordering (units (o wn) date) Provider: unknown) Tommy Wells D.O. (unknown) (no (unknown) (unknown) PROCEDURE: CT (units ( unknown) date) BIOPSY LIVER unknown) (unknown) (no (unknown) (unknown) Patient: (units (o wn) date) Yoseph Cardoso unknown) MR#: [id number] (unknown) (no (unknown) (unknown) Procedure: CT (units ( unknown) date) biopsy liver unknown) (unknown) (no (unknown) (unknown) Sedation (units (o wn) date) analgesia for 15 unknown) minutes. (unknown) (no (unknown) (unknown) Signed (units (unkno wn) date) unknown) (unknown) (no (unknown) (unknown) TECHNIQUE: (units (unk nown) date) unknown) (unknown) (no (unknown) (unknown) The indications, (units (unknown) date) alternatives, unknown) benefits, risks, and possible complications of (unknown) (no (unknown) (unknown) The patient was (units (unknown) date) brought to the CT unknown) suite and histology specialist spiral CT imaging was (unknown) (no (unknown) (unknown) anaesthesia. (units (u nknown) date) Under unknown) (unknown) (no (unknown) (unknown) conscious (units (unkn own) date) unknown) (unknown) (no (unknown) (unknown) culture/gram (units (u nknown) date) stain. unknown) (unknown) (no (unknown) (unknown) in the (units (unkno wn) date) unknown) (unknown) (no (unknown) (unknown) localization (units (u nknown) date) grid. The unknown) appropriate site for percutaneous access to the biopsy (unknown) (no (unknown) (unknown) marked, was (units (un known) date) prepped and unknown) draped sterilely, and was infused with local (unknown) (no (unknown) (unknown) patient was (units (un known) date) unknown) (unknown) (no (unknown) (unknown) patient (units (unkno wn) date) unknown) (unknown) (no (unknown) (unknown) performed with (units (unknown) date) unknown) (unknown) (no (unknown) (unknown) posterior right (units (unknown) date) lobe of the unknown) liver. Samples were sent for pathology analysis and (unknown) (no (unknown) (unknown) procedure were (units (unknown) date) communicated to unknown) the patient. Informed written consent from the (unknown) (no (unknown) (unknown) sedation for 15 (units (unknown) date) minutes (see unknown) nursing record). (unknown) (no (unknown) (unknown) sent for (units (unkno wn) date) post-procedure unknown) monitoring. (unknown) (no (unknown) (unknown) specimen(s) were (units (unknown) date) obtained. The unknown) trocar and needle were then removed, and the (unknown) (no (unknown) (unknown) started by (units (unk nown) date) trained unknown) personnel. (unknown) (no (unknown) (unknown) target was (units (unk nown) date) unknown) (unknown) (no (unknown) (unknown) target, and (units (un known) date) unknown) (unknown) (no (unknown) (unknown) the (units (unkno wn) date) unknown) (unknown) (no (unknown) (unknown) was obtained and (units (unknown) date) placed in the unknown) chart. Continuous EKG and hemodynamic monitoring (unknown) (no (unknown) (unknown) was (units (unkno wn) date) unknown) Result panel 257 (unknown) (no date) (unknown) (unknown) 1.3 (units unknown) (unknown) (unknown) (no date) (unknown) (unknown) 14.6 seconds (unkn own) Result panel 258 (unknown) (no (unknown) (unknown) (no value) (units (unk nown) date) unknown) (unknown) (no (unknown) (unknown) (past 8 hours): (units (unknown) date) unknown) (unknown) (no (unknown) (unknown) -CT guided liver (units (unknown) date) biopsy with IR unknown) ordered, INR 1.3 (unknown) (no (unknown) (unknown) -attempted to (units ( unknown) date) contact patient's unknown) oncology/derm specialist at Dr. Arianna Reeder, (unknown) (no (unknown) (unknown) [id number] (units (unkno wn) date) unknown) (unknown) (no (unknown) (unknown) 06/16/22 06/19/22 (units (unknown) date) 06/19/22 unknown) (unknown) (no (unknown) (unknown) 06/19/22 06:08 (units (unknown) date) unknown) (unknown) (no (unknown) (unknown) 06/19/22 1539 (units ( unknown) date) unknown) (unknown) (no (unknown) (unknown) 06/19/22 (units (unkno wn) date) unknown) (unknown) (no (unknown) (unknown) 04:40 06/19/22 (units (unknown) date) unknown) (unknown) (no (unknown) (unknown) 06:08 (units (unkno wn) date) unknown) (unknown) (no (unknown) (unknown) 08:26 (units (unkno wn) date) unknown) (unknown) (no (unknown) (unknown) 1. Concern for (units (unknown) date) metastatic disease unknown) (unknown) (no (unknown) (unknown) 2. Sepsis ruled (units (unknown) date) out unknown) (unknown) (no (unknown) (unknown) 21:57 06:08 06:08 (units (unknown) date) unknown) (unknown) (no (unknown) (unknown) 3. UTI, treated (units (unknown) date) unknown) (unknown) (no (unknown) (unknown) 4. Acute (units (unkno wn) date) metabolic unknown) encephalopathy, improving (unknown) (no (unknown) (unknown) 5. Essential (units (u nknown) date) hypertension unknown) (unknown) (no (unknown) (unknown) 6. Atrial (units (unkn own) date) fibrillation unknown) (unknown) (no (unknown) (unknown) 7. Malnutrition, (units (unknown) date) severe unknown) (unknown) (no (unknown) (unknown) ? (units (unkno wn) date) unknown) (unknown) (no (unknown) (unknown) ABD: Soft, NT/ND, (units (unknown) date) BT present in all unknown) 4 quadrants, no organomegaly or masses (unknown) (no (unknown) (unknown) ALT 52 H (units (unkno wn) date) unknown) (unknown) (no (unknown) (unknown) ALT (units (unkno wn) date) unknown) (unknown) (no (unknown) (unknown) AST 59 (units (unkno wn) date) unknown) (unknown) (no (unknown) (unknown) AST (units (unkno wn) date) unknown) (unknown) (no (unknown) (unknown) Age/Sex: 86 / M (units (unknown) date) unknown) (unknown) (no (unknown) (unknown) Albumin 2.6 L (units ( unknown) date) unknown) (unknown) (no (unknown) (unknown) Albumin (units (unkno wn) date) unknown) (unknown) (no (unknown) (unknown) Albumin/Globulin (units (unknown) date) Ratio 1.0 unknown) (unknown) (no (unknown) (unknown) Albumin/Globulin (units (unknown) date) Ratio unknown) (unknown) (no (unknown) (unknown) Alkaline (units (unkno wn) date) Phosphatase 463 H unknown) (unknown) (no (unknown) (unknown) Alkaline (units (unkno wn) date) Phosphatase unknown) (unknown) (no (unknown) (unknown) Although he is (units (unknown) date) alert and oriented unknown) today, he appearsto be unable to make complex (unknown) (no (unknown) (unknown) Assessment + Plan (units (unknown) date) narrative: unknown) (unknown) (no (unknown) (unknown) Assessment + Plan (units (unknown) date) unknown) (unknown) (no (unknown) (unknown) Asthma (units (unkno wn) date) unknown) (unknown) (no (unknown) (unknown) Atrial (units (unkno wn) date) fibrillation unknown) (unknown) (no (unknown) (unknown) BP normotensive (units (unknown) date) today. Continue unknown) amlodipine. (unknown) (no (unknown) (unknown) BUN 25 H (units (unkno wn) date) unknown) (unknown) (no (unknown) (unknown) BUN (units (unkno wn) date) unknown) (unknown) (no (unknown) (unknown) BUN/Creatinine (units (unknown) date) Ratio 26.3 H unknown) (unknown) (no (unknown) (unknown) BUN/Creatinine (units (unknown) date) Ratio unknown) (unknown) (no (unknown) (unknown) Baso # (Auto) 100 (units (unknown) date) unknown) (unknown) (no (unknown) (unknown) Baso # (Auto) (units ( unknown) date) unknown) (unknown) (no (unknown) (unknown) Baso % (Auto) 0.9 (units (unknown) date) unknown) (unknown) (no (unknown) (unknown) Baso % (Auto) (units ( unknown) date) unknown) (unknown) (no (unknown) (unknown) Blood Pressure (units (unknown) date) 156/76 H unknown) (unknown) (no (unknown) (unknown) CHEST: (units (unkno wn) date) Respiratory unknown) excursions symmetric, CTAB (unknown) (no (unknown) (unknown) CV: irregularly (units (unknown) date) irregular, no unknown) M/R/G (unknown) (no (unknown) (unknown) Calcium 7.7 L (units ( unknown) date) unknown) (unknown) (no (unknown) (unknown) Calcium (units (unkno wn) date) unknown) (unknown) (no (unknown) (unknown) Carbon Dioxide 25 (units (unknown) date) unknown) (unknown) (no (unknown) (unknown) Carbon Dioxide (units (unknown) date) unknown) (unknown) (no (unknown) (unknown) Chloride 102 (units (u nknown) date) unknown) (unknown) (no (unknown) (unknown) Chloride (units (unkno wn) date) unknown) (unknown) (no (unknown) (unknown) Chronic (units (unkno wn) date) anticoagulation unknown) (unknown) (no (unknown) (unknown) Code status (units (un known) date) unknown) (unknown) (no (unknown) (unknown) Creatinine 0.95 (units (unknown) date) unknown) (unknown) (no (unknown) (unknown) Creatinine (units (unk nown) date) unknown) (unknown) (no (unknown) (unknown) Critical Care (units ( unknown) date) time: unknown) (unknown) (no (unknown) (unknown) : 1935 (units (unknown) date) Acct:[id number] unknown) (unknown) (no (unknown) (unknown) Date Patient (units (u nknown) date) Seen: 06/19/22 unknown) (unknown) (no (unknown) (unknown) Date of Service: (units (unknown) date) 06/16/22 unknown) (unknown) (no (unknown) (unknown) Deep Vein (units (unkn own) date) Thrombosis/Pulmona unknown) ry Embolism Present on Admission: No (unknown) (no (unknown) (unknown) [facility]u nknown) [facility] Urine culture (unknown) (no (unknown) (unknown) Disposition (units (un known) date) unknown) (unknown) (no (unknown) (unknown) EXTR: warm, well (units (unknown) date) perfused, no C/C/E unknown) (unknown) (no (unknown) (unknown) Eliquis for (units (un known) date) biopsy.? He is unknown) status post pacemaker. (unknown) (no (unknown) (unknown) Eos # (Auto) 100 (units (unknown) date) unknown) (unknown) (no (unknown) (unknown) Eos # (Auto) (units (u nknown) date) unknown) (unknown) (no (unknown) (unknown) Eos % (Auto) 0.8 (units (unknown) date) L unknown) (unknown) (no (unknown) (unknown) Eos % (Auto) (units (u nknown) date) unknown) (unknown) (no (unknown) (unknown) Essential (units (unkn own) date) hypertension unknown) (unknown) (no (unknown) (unknown) Estimated GFR > (units (unknown) date) 60 unknown) (unknown) (no (unknown) (unknown) Estimated GFR (units ( unknown) date) unknown) (unknown) (no (unknown) (unknown) Exam Narrative: (units (unknown) date) unknown) (unknown) (no (unknown) (unknown) Exam (units (unkno wn) date) unknown) (unknown) (no (unknown) (unknown) Family History (units (unknown) date) (Reviewed 06/17/22 unknown) @ 00:47 by Hawa Michael [facility]) (unknown) (no (unknown) (unknown) Father (units (unknown) date) Diabetes mellitus unknown) (unknown) (no (unknown) (unknown) Fraction of (units (un known) date) Inspired Oxygen 21 unknown) (unknown) (no (unknown) (unknown) Full (units (unkno wn) date) unknown) (unknown) (no (unknown) (unknown) GEN:? Pleasant (units (unknown) date) elderly male, unknown) alert and oriented x 2, NAD, hard of hearing (unknown) (no (unknown) (unknown) Globulin 2.5 (units (u nknown) date) unknown) (unknown) (no (unknown) (unknown) Globulin (units (unkno wn) date) unknown) (unknown) (no (unknown) (unknown) Glucose 86 (units (unk nown) date) unknown) (unknown) (no (unknown) (unknown) Glucose (units (unkno wn) date) unknown) (unknown) (no (unknown) (unknown) HEENT:NC, Face (units (unknown) date) symmetric unknown) (unknown) (no (unknown) (unknown) Hct 43.6 (units (unkno wn) date) unknown) (unknown) (no (unknown) (unknown) Hct (units (unkno wn) date) unknown) (unknown) (no (unknown) (unknown) He did have rapid (units (unknown) date) AFib on the date unknown) of admission that has not recurred.? Holding (unknown) (no (unknown) (unknown) Hep B Core IgM Ab (units (unknown) date) Negative unknown) (unknown) (no (unknown) (unknown) Hep B Core IgM Ab (units (unknown) date) unknown) (unknown) (no (unknown) (unknown) Hep Bs Antigen (units (unknown) date) Negative unknown) (unknown) (no (unknown) (unknown) Hep Bs Antigen (units (unknown) date) unknown) (unknown) (no (unknown) (unknown) Hep C Ab (units (unkno wn) date) Signal/Cutoff unknown) Comment (unknown) (no (unknown) (unknown) Hep C Ab (units (unkno wn) date) Signal/Cutoff unknown) (unknown) (no (unknown) (unknown) Hepatitis A IgM (units (unknown) date) Ab Negative unknown) (unknown) (no (unknown) (unknown) Hepatitis A IgM (units (unknown) date) Ab unknown) (unknown) (no (unknown) (unknown) Hepatitis C (units (un known) date) Antibody Non unknown) reactive (unknown) (no (unknown) (unknown) Hepatitis C (units (un known) date) Antibody unknown) (unknown) (no (unknown) (unknown) Hepatocellular (units (unknown) date) carcinoma is also unknown) in the differential.? 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 Blood and urine cultures are negative to (unknown) (no (unknown) (unknown) Interval history: (units (unknown) date) unknown) (unknown) (no (unknown) (unknown) [facility] (units (unknown) date) [address] unknown) [place] [address] (unknown) (no (unknown) (unknown) Laboratory (units (unk nown) date) Results - last 24 unknown) hr (unknown) (no (unknown) (unknown) Labs (units (unkno wn) date) unknown) (unknown) (no (unknown) (unknown) Labs: (units (unkno wn) date) unknown) (unknown) (no (unknown) (unknown) Likely home on (units (unknown) date) 06/20 following unknown) liver biopsy. (unknown) (no (unknown) (unknown) Lymph # (Auto) (units (unknown) date) 400 L unknown) (unknown) (no (unknown) (unknown) Lymph # (Auto) (units (unknown) date) unknown) (unknown) (no (unknown) (unknown) Lymph % (Auto) (units (unknown) date) 6.6 L unknown) (unknown) (no (unknown) (unknown) Lymph % (Auto) (units (unknown) date) unknown) (unknown) (no (unknown) (unknown) MCH 30.9 (units (unkno wn) date) unknown) (unknown) (no (unknown) (unknown) MCH (units (unkno wn) date) unknown) (unknown) (no (unknown) (unknown) MCHC 34.2 (units (unkn own) date) unknown) (unknown) (no (unknown) (unknown) MCHC (units (unkno wn) date) unknown) (unknown) (no (unknown) (unknown) MCV 90.3 (units (unkno wn) date) unknown) (unknown) (no (unknown) (unknown) MCV (units (unkno wn) date) unknown) (unknown) (no (unknown) (unknown) Medical History (units (unknown) date) (Updated 06/17/22 unknown) @ 00:55 by Hawa Michael [facility]) (unknown) (no (unknown) (unknown) [place] # (Auto) (units ( unknown) date) 1000 H unknown) (unknown) (no (unknown) (unknown) [place] # (Auto) (units ( unknown) date) unknown) (unknown) (no (unknown) (unknown) [place] % (Auto) (units ( unknown) date) 15.4 H unknown) (unknown) (no (unknown) (unknown) [place] % (Auto) (units ( unknown) date) unknown) (unknown) (no (unknown) (unknown) Mother (units (unknown) date) No problems noted. unknown) (unknown) (no (unknown) (unknown) NEURO: Alert and (units (unknown) date) oriented x 2, unknown) nonfocal (unknown) (no (unknown) (unknown) Narrative (units (unkn own) date) unknown) (unknown) (no (unknown) (unknown) Neut # (Auto) (units ( unknown) date) 5100 unknown) (unknown) (no (unknown) (unknown) Neut # (Auto) (units ( unknown) date) unknown) (unknown) (no (unknown) (unknown) Neut % (Auto) (units ( unknown) date) 76.3 H unknown) (unknown) (no (unknown) (unknown) Neut % (Auto) (units ( unknown) date) unknown) (unknown) (no (unknown) (unknown) Objective (units (unkn own) date) unknown) (unknown) (no (unknown) (unknown) Oxygen Delivery (units (unknown) date) Method Room Air unknown) (unknown) (no (unknown) (unknown) Oxygen Flow Rate (units (unknown) date) 0 unknown) (unknown) (no (unknown) (unknown) PFSH (units (unkno wn) date) unknown) (unknown) (no (unknown) (unknown) Pacemaker (units (unkn own) date) unknown) (unknown) (no (unknown) (unknown) Patient appears (units (unknown) date) to have ongoing unknown) mild encephalopathy, but overall is improved.? (unknown) (no (unknown) (unknown) Patient feels (units ( unknown) date) well and is unknown) at bedside. 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 He has lost 30 lb (unknown) (no (unknown) (unknown) Patient: (units (unkno wn) date) Yoseph Cardoso G unknown) MR#: [id number] (unknown) (no (unknown) (unknown) Phosphorus 3.3 (units (unknown) date) unknown) (unknown) (no (unknown) (unknown) Phosphorus (units (unk nown) date) unknown) (unknown) (no (unknown) (unknown) Plt Count 185 (units ( unknown) date) unknown) (unknown) (no (unknown) (unknown) Plt Count (units (unkn own) date) unknown) (unknown) (no (unknown) (unknown) Potassium 4.4 (units ( unknown) date) unknown) (unknown) (no (unknown) (unknown) Potassium (units (unkn own) date) unknown) (unknown) (no (unknown) (unknown) Progress Note (units ( unknown) date) unknown) (unknown) (no (unknown) (unknown) Prophylaxis (units (un known) date) unknown) (unknown) (no (unknown) (unknown) Provider: (units (unkn own) date) Tommy Wells unknown) D.O. (unknown) (no (unknown) (unknown) Pulse Oximetry 96 (units (unknown) date) 97 unknown) (unknown) (no (unknown) (unknown) Pulse Rate 77 86 (units (unknown) date) unknown) (unknown) (no (unknown) (unknown) Quality (units (unkno wn) date) unknown) (unknown) (no (unknown) (unknown) RBC 4.83 (units (unkno wn) date) unknown) (unknown) (no (unknown) (unknown) RBC (units (unkno wn) date) unknown) (unknown) (no (unknown) (unknown) RDW 14.3 (units (unkno wn) date) unknown) (unknown) (no (unknown) (unknown) RDW (units (unkno wn) date) unknown) (unknown) (no (unknown) (unknown) Respiratory Rate (units (unknown) date) 18 14 unknown) (unknown) (no (unknown) (unknown) SKIN: warm and (units (unknown) date) dry, no rash unknown) (unknown) (no (unknown) (unknown) SaO2/FiO2 Ratio (units (unknown) date) 471 unknown) (unknown) (no (unknown) (unknown) Signed (units (unkno wn) date) By:<Electronically unknown) signed by Jaycee TiradoOTwin> (unknown) (no (unknown) (unknown) Smoking Status: (units (unknown) date) Never smoker unknown) (unknown) (no (unknown) (unknown) Social History (units (unknown) date) (Reviewed 06/16/22 unknown) @ 14:04 by Matt Swartz MD) (unknown) (no (unknown) (unknown) Sodium 133 L (units (u nknown) date) unknown) (unknown) (no (unknown) (unknown) Sodium (units (unkno wn) date) unknown) (unknown) (no (unknown) (unknown) Subjective (units (unk nown) date) unknown) (unknown) (no (unknown) (unknown) Surgical History (units (unknown) date) (Updated 06/16/22 unknown) @ 21:27 by Hawa Michael [facility]) (unknown) (no (unknown) (unknown) Temperature 97.0 (units (unknown) date) F L unknown) (unknown) (no (unknown) (unknown) Time Spent With (units (unknown) date) Patient unknown) (unknown) (no (unknown) (unknown) Total Bilirubin (units (unknown) date) 2.4 H unknown) (unknown) (no (unknown) (unknown) Total Bilirubin (units (unknown) date) unknown) (unknown) (no (unknown) (unknown) Total Protein 5.1 (units (unknown) date) L unknown) (unknown) (no (unknown) (unknown) Total Protein (units ( unknown) date) unknown) (unknown) (no (unknown) (unknown) VM box full. (units (u nknown) date) Patient has appt unknown) with her next week. (unknown) (no (unknown) (unknown) VTE (units (unkno wn) date) unknown) (unknown) (no (unknown) (unknown) Vital Signs (units (un known) date) unknown) (unknown) (no (unknown) (unknown) WBC 6.7 (units (unkno wn) date) unknown) (unknown) (no (unknown) (unknown) WBC (units (unkno wn) date) unknown) (unknown) (no (unknown) (unknown) Will have this (units (unknown) date) arranged with IR. unknown) (unknown) (no (unknown) (unknown) [Embedded Image (units (unknown) date) Not Available] unknown) (unknown) (no (unknown) (unknown) above.? Await (units ( unknown) date) dietitian unknown) recommendation. Will add MVI and thiamine. (unknown) (no (unknown) (unknown) ago.? He now has (units (unknown) date) multifocal lesions unknown) in the liver and spleen on imaging.? (unknown) (no (unknown) (unknown) alcohol intake: (units (unknown) date) current unknown) (unknown) (no (unknown) (unknown) any ill symptoms (units (unknown) date) such as fevers or unknown) chills.? His white blood cell count remains (unknown) (no (unknown) (unknown) date.? He is (units (u nknown) date) afebrile with a unknown) normal white blood cell count. Abx stopped. (unknown) (no (unknown) (unknown) decisions at this (units (unknown) date) point.? Will await unknown) further input from family. (unknown) (no (unknown) (unknown) family. (units (unkno wn) date) unknown) (unknown) (no (unknown) (unknown) here is negative (units (unknown) date) thus far.?Zosyn unknown) stopped as above (unknown) (no (unknown) (unknown) history of (units (unk nown) date) hepatitis.? In the unknown) differential was also infectious etiology.? That (unknown) (no (unknown) (unknown) household (units (unkn own) date) members: spouse unknown) (unknown) (no (unknown) (unknown) normal.? It is (units (unknown) date) more likely this unknown) is malignant in nature.? Discussed with the (unknown) (no (unknown) (unknown) over the last few (units (unknown) date) months.? 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 He has not had (unknown) (no (unknown) (unknown) today; this time (units (unknown) date) is exclusive of unknown) procedural time. (unknown) (no (unknown) (unknown) warranted to (units (u nknown) date) determine the unknown) etiology of the liver lesion which agreed to. (unknown) (no (unknown) (unknown) yesterday. She (units (unknown) date) thinks a biopsy is unknown) warranted after speaking with patient and Result panel 259 (unknown) (no date) (unknown) (unknown) 0 /ul (unkn own) (unknown) (no date) (unknown) (unknown) 0.5 % (unkn own) (unknown) (no date) (unknown) (unknown) 0.8 % (unkn own) (unknown) (no date) (unknown) (unknown) 100 /ul (unkn own) (unknown) (no date) (unknown) (unknown) 1000 /ul (unkn own) (unknown) (no date) (unknown) (unknown) 14.6 % (unkn own) (unknown) (no date) (unknown) (unknown) 14.7 % (unkn own) (unknown) (no date) (unknown) (unknown) 15.7 g/dl (unkn own) (unknown) (no date) (unknown) (unknown) 176 x10 3/ul (unkn own) (unknown) (no date) (unknown) (unknown) 30.5 pg (unkn own) (unknown) (no date) (unknown) (unknown) 33.2 % (unkn own) (unknown) (no date) (unknown) (unknown) 47.4 % (unkn own) (unknown) (no date) (unknown) (unknown) 5.17 x10 6/ul (unkn own) (unknown) (no date) (unknown) (unknown) 5100 /ul (unkn own) (unknown) (no date) (unknown) (unknown) 6.7 x10 3/ul (unkn own) (unknown) (no date) (unknown) (unknown) 600 /ul (unkn own) (unknown) (no date) (unknown) (unknown) 75.5 % (unkn own) (unknown) (no date) (unknown) (unknown) 8.5 % (unkn own) (unknown) (no date) (unknown) (unknown) 91.7 fl (unkn own) Result panel 260 (unknown) (no date) (unknown) (unknown) 3.1 mg/dl (unkn own) Result panel 261 (unknown) (no date) (unknown) (unknown) > 60 ml/min (unkn own) (unknown) (no date) (unknown) (unknown) > 60 ml/min (unkn own) (unknown) (no date) (unknown) (unknown) 0.77 mg/dl (unkn own) (unknown) (no date) (unknown) (unknown) 0.9 (units unknown) (unknown) (unknown) (no date) (unknown) (unknown) 103 mmol/l (unkn own) (unknown) (no date) (unknown) (unknown) 135 mmol/l (unkn own) (unknown) (no date) (unknown) (unknown) 2.5 mg/dl (unkn own) (unknown) (no date) (unknown) (unknown) 2.6 g/dl (unkn own) (unknown) (no date) (unknown) (unknown) 2.8 g/dl (unkn own) (unknown) (no date) (unknown) (unknown) 23 mmol/l (unkn own) (unknown) (no date) (unknown) (unknown) 24 mg/dl (unkn own) (unknown) (no date) (unknown) (unknown) 31.2 (units unknown) (unknown) (unknown) (no date) (unknown) (unknown) 4.1 mmol/l (unkn own) (unknown) (no date) (unknown) (unknown) 5.4 g/dl (unkn own) (unknown) (no date) (unknown) (unknown) 52 iu/l (unkn own) (unknown) (no date) (unknown) (unknown) 559 u/l (unkn own) (unknown) (no date) (unknown) (unknown) 61 iu/l (unkn own) (unknown) (no date) (unknown) (unknown) 7.8 mg/dl (unkn own) (unknown) (no date) (unknown) (unknown) 85 mg/dl (unkn own) (unknown) (no date) (unknown) (unknown) 85 mg/dl (unkn own) Result panel 262 (unknown) (no (unknown) (unknown) (no value) (units (unk nown) date) unknown) (unknown) (no (unknown) (unknown) <Electronically (units (unknown) date) signed by Matt unknownShahab Swratz MD> (unknown) (no (unknown) (unknown) (Flovent HFA) (units ( unknown) date) unknown) (unknown) (no (unknown) (unknown) [id number] (units (unkno wn) date) unknown) (unknown) (no (unknown) (unknown) 06/16/22 06/16/22 (units (unknown) date) 06/16/22 unknown) Range/Units (unknown) (no (unknown) (unknown) 06/16/22 12:35 (units (unknown) date) unknown) (unknown) (no (unknown) (unknown) 06/16/22 (units (unkno wn) date) Range/Units unknown) (unknown) (no (unknown) (unknown) 06/16/22 (units (unkno wn) date) unknown) (unknown) (no (unknown) (unknown) 06/20/22 0759 (units ( unknown) date) unknown) (unknown) (no (unknown) (unknown) [address] [place] [address] (units (unknown) date) unknown) (unknown) (no (unknown) (unknown) 12:21 06/16/22 (units (unknown) date) unknown) (unknown) (no (unknown) (unknown) 12:30 06/16/22 (units (unknown) date) unknown) (unknown) (no (unknown) (unknown) 12:30 (units (unkno wn) date) unknown) (unknown) (no (unknown) (unknown) 12:35 12:35 12:35 (units (unknown) date) unknown) (unknown) (no (unknown) (unknown) 12:45 06/16/22 (units (unknown) date) unknown) (unknown) (no (unknown) (unknown) 13:00 06/16/22 (units (unknown) date) unknown) (unknown) (no (unknown) (unknown) 13:00 (units (unkno wn) date) unknown) (unknown) (no (unknown) (unknown) 13:15 06/16/22 (units (unknown) date) unknown) (unknown) (no (unknown) (unknown) 13:15 (units (unkno wn) date) unknown) (unknown) (no (unknown) (unknown) 13:30 06/16/22 (units (unknown) date) unknown) (unknown) (no (unknown) (unknown) 13:45 06/16/22 (units (unknown) date) unknown) (unknown) (no (unknown) (unknown) 13:46 06/16/22 (units (unknown) date) unknown) (unknown) (no (unknown) (unknown) 13:46 (units (unkno wn) date) unknown) (unknown) (no (unknown) (unknown) 14:00 06/16/22 (units (unknown) date) unknown) (unknown) (no (unknown) (unknown) 14:00 (units (unkno wn) date) unknown) (unknown) (no (unknown) (unknown) 15:30 (units (unkno wn) date) unknown) (unknown) (no (unknown) (unknown) 4 mos (units (unkno wn) date) unknown) (unknown) (no (unknown) (unknown) 72 (units (unkno wn) date) unknown) (unknown) (no (unknown) (unknown) ? (units (unkno wn) date) unknown) (unknown) (no (unknown) (unknown) ALT (<50) IU/L (units (unknown) date) unknown) (unknown) (no (unknown) (unknown) ALT 63 H (<50) (units (unknown) date) IU/L unknown) (unknown) (no (unknown) (unknown) APTT (26-36) (units (u nknown) date) SECONDS unknown) (unknown) (no (unknown) (unknown) APTT 38 H (26-36) (units (unknown) date) SECONDS unknown) (unknown) (no (unknown) (unknown) AST (17-59) IU/L (units (unknown) date) unknown) (unknown) (no (unknown) (unknown) AST 61 H (17-59) (units (unknown) date) IU/L unknown) (unknown) (no (unknown) (unknown) Accession Number: (units (unknown) date) [id number] ?? unknown) (unknown) (no (unknown) (unknown) Accession Number: (units (unknown) date) [id number] ?? unknown) (unknown) (no (unknown) (unknown) Accession Number: (units (unknown) date) [id number] ?? unknown) (unknown) (no (unknown) (unknown) Acct:[id number] (units (unknown) date) unknown) (unknown) (no (unknown) (unknown) Acetaminophen (units ( unknown) date) (Acetaminophen 325 unknown) Mg Tablet) 650 mg PO Q6H PRN (unknown) (no (unknown) (unknown) Admin: 06/16/22 (units (unknown) date) 13:02 Dose: 1,000 unknown) mls/hr (unknown) (no (unknown) (unknown) Admin: 06/16/22 (units (unknown) date) 21:51 Dose: 1,000 unknown) mls/hr (unknown) (no (unknown) (unknown) Admin: 06/16/22 (units (unknown) date) 21:53 Dose: 200 unknown) mls/hr (unknown) (no (unknown) (unknown) Admin: 06/17/22 (units (unknown) date) 01:12 Dose: 25 unknown) mls/hr (unknown) (no (unknown) (unknown) Admin: 06/17/22 (units (unknown) date) 01:45 Dose: 84 unknown) mls/hr (unknown) (no (unknown) (unknown) Admin: 06/17/22 (units (unknown) date) 05:52 Dose: 20 mg unknown) (unknown) (no (unknown) (unknown) Admin: 06/17/22 (units (unknown) date) 08:39 Dose: 0.5 mg unknown) (unknown) (no (unknown) (unknown) Admin: 06/17/22 (units (unknown) date) 10:34 Dose: 10 ml unknown) (unknown) (no (unknown) (unknown) Admin: 06/17/22 (units (unknown) date) 10:35 Dose: 25 unknown) mls/hr (unknown) (no (unknown) (unknown) Admin: 06/17/22 (units (unknown) date) 10:35 Dose: 300 mg unknown) (unknown) (no (unknown) (unknown) Admin: 06/17/22 (units (unknown) date) 10:35 Dose: 5 mg unknown) (unknown) (no (unknown) (unknown) Admin: 06/17/22 (units (unknown) date) 18:14 Dose: 25 unknown) mls/hr (unknown) (no (unknown) (unknown) Admin: 06/17/22 (units (unknown) date) 20:24 Dose: 0.5 mg unknown) (unknown) (no (unknown) (unknown) Admin: 06/17/22 (units (unknown) date) 21:26 Dose: 300 mg unknown) (unknown) (no (unknown) (unknown) Admin: 06/17/22 (units (unknown) date) 21:27 Dose: 10 ml unknown) (unknown) (no (unknown) (unknown) Admin: 06/17/22 (units (unknown) date) 21:43 Dose: 650 mg unknown) (unknown) (no (unknown) (unknown) Admin: 06/18/22 (units (unknown) date) 01:23 Dose: 25 unknown) mls/hr (unknown) (no (unknown) (unknown) Admin: 06/18/22 (units (unknown) date) 05:57 Dose: 20 mg unknown) (unknown) (no (unknown) (unknown) Admin: 06/18/22 (units (unknown) date) 08:25 Dose: 25 unknown) mls/hr (unknown) (no (unknown) (unknown) Admin: 06/18/22 (units (unknown) date) 08:25 Dose: 300 mg unknown) (unknown) (no (unknown) (unknown) Admin: 06/18/22 (units (unknown) date) 08:25 Dose: 5 mg unknown) (unknown) (no (unknown) (unknown) Admin: 06/18/22 (units (unknown) date) 08:26 Dose: 10 ml unknown) (unknown) (no (unknown) (unknown) Admin: 06/18/22 (units (unknown) date) 09:02 Dose: 0.5 mg unknown) (unknown) (no (unknown) (unknown) Admin: 06/18/22 (units (unknown) date) 13:53 Dose: 1 tab unknown) (unknown) (no (unknown) (unknown) Admin: 06/18/22 (units (unknown) date) 13:53 Dose: 100 mg unknown) (unknown) (no (unknown) (unknown) Admin: 06/18/22 (units (unknown) date) 17:21 Dose: 25 unknown) mls/hr (unknown) (no (unknown) (unknown) Admin: 06/18/22 (units (unknown) date) 20:09 Dose: 0.5 mg unknown) (unknown) (no (unknown) (unknown) Admin: 02/26/23 (units (unknown) date) 21:31 Dose: 10 ml unknown) (unknown) (no (unknown) (unknown) Admin: 06/18/22 (units (unknown) date) 21:31 Dose: 300 mg unknown) (unknown) (no (unknown) (unknown) Admin: 06/19/22 (units (unknown) date) 00:16 Dose: 25 unknown) mls/hr (unknown) (no (unknown) (unknown) Admin: 06/19/22 (units (unknown) date) 06:13 Dose: 20 mg unknown) (unknown) (no (unknown) (unknown) Admin: 06/19/22 (units (unknown) date) 08:26 Dose: 0.5 mg unknown) (unknown) (no (unknown) (unknown) Admin: 06/19/22 (units (unknown) date) 09:13 Dose: 10 ml unknown) (unknown) (no (unknown) (unknown) Admin: 06/19/22 (units (unknown) date) 09:13 Dose: 300 mg unknown) (unknown) (no (unknown) (unknown) Admit Date/Time: (units (unknown) date) 06/16/22 15:35 unknown) (unknown) (no (unknown) (unknown) Admit Provider: (units (unknown) date) Roxana Parker unknown) (unknown) (no (unknown) (unknown) After history and (units (unknown) date) exam CT head CT unknown) chest CBC CMP BNP troponin procalcitonin (unknown) (no (unknown) (unknown) After the (units (unkn own) date) administration of unknown) intravenous contrast, 5 mm thick sections acquired (unknown) (no (unknown) (unknown) Age/Sex: 86 / M (units (unknown) date) unknown) (unknown) (no (unknown) (unknown) Agrees with IV (units (unknown) date) hydration and unknown) repeat lactic acid. Blood cultures to be done. (unknown) (no (unknown) (unknown) Albumin (3.5-5.0) (units (unknown) date) g/dL unknown) (unknown) (no (unknown) (unknown) Albumin 3.1 L (units ( unknown) date) (3.5-5.0) g/dL unknown) (unknown) (no (unknown) (unknown) Albumin/Globulin (units (unknown) date) Ratio (1.0-2.8) unknown) (unknown) (no (unknown) (unknown) Albumin/Globulin (units (unknown) date) Ratio 1.1 unknown) (1.0-2.8) (unknown) (no (unknown) (unknown) Alkaline (units (unkno wn) date) Phosphatase unknown) (38-126) U/L (unknown) (no (unknown) (unknown) Alkaline (units (unkno wn) date) Phosphatase 428 H unknown) (38-126) U/L (unknown) (no (unknown) (unknown) Allergies (units (unkn own) date) unknown) (unknown) (no (unknown) (unknown) Allergy/AdvReac (units (unknown) date) Type Severity unknown) Reaction Status Date / Time (unknown) (no (unknown) (unknown) Amlodipine (units (unk nown) date) Besylate unknown) (Amlodipine 5 Mg Tablet) 5 mg PO DAILY DAVID (unknown) (no (unknown) (unknown) [place], [place] (units ( unknown) date) [id number] unknown) (unknown) (no (unknown) (unknown) Apixaban (units (unkno wn) date) (Apixaban 5 Mg unknown) Tablet) 5 mg PO BID DAVID (unknown) (no (unknown) (unknown) Approved by: (units (u nknown) date) Brandyn Davis M.D. on unknown) 06/16/2022 at 13:03 ? (unknown) (no (unknown) (unknown) Approved by: (units (u nknown) date) Brandyn Davis M.D. on unknown) 06/16/2022 at 14:52 ? (unknown) (no (unknown) (unknown) Approved by: (units (u nknown) date) Brandyn Davis M.D. on unknown) 06/16/2022 at 14:54 ? (unknown) (no (unknown) (unknown) Asthma (units (unkno wn) date) unknown) (unknown) (no (unknown) (unknown) At this time (units (u nknown) date) uncertain source unknown) of patient's liver enzymes and acidosis. Not (unknown) (no (unknown) (unknown) Atrial (units (unkno wn) date) fibrillation unknown) (unknown) (no (unknown) (unknown) BACK: No flank (units (unknown) date) tenderness. unknown) (unknown) (no (unknown) (unknown) BUN (9-20) mg/dL (units (unknown) date) unknown) (unknown) (no (unknown) (unknown) BUN 34 H (9-20) (units (unknown) date) mg/dL unknown) (unknown) (no (unknown) (unknown) BUN/Creatinine (units (unknown) date) Ratio (6-22) unknown) (unknown) (no (unknown) (unknown) BUN/Creatinine (units (unknown) date) Ratio 34.3 H unknown) (6-22) (unknown) (no (unknown) (unknown) Baso # (Auto) (units ( unknown) date) (0-100) /uL unknown) (unknown) (no (unknown) (unknown) Baso # (Auto) 100 (units (unknown) date) (0-100) /uL unknown) (unknown) (no (unknown) (unknown) Baso % (Auto) (units ( unknown) date) (0-2) % unknown) (unknown) (no (unknown) (unknown) Baso % (Auto) 0.8 (units (unknown) date) (0-2) % unknown) (unknown) (no (unknown) (unknown) Blood Pressure (units (unknown) date) 134/61 141/67 H unknown) (unknown) (no (unknown) (unknown) Blood Pressure (units (unknown) date) 141/57 H unknown) (unknown) (no (unknown) (unknown) Blood Pressure (units (unknown) date) 142/67 H unknown) (unknown) (no (unknown) (unknown) Blood Pressure (units (unknown) date) 144/68 H 06/16/ unknown) 12:21 (unknown) (no (unknown) (unknown) Blood Pressure (units (unknown) date) 144/68 H 144/68 H unknown) (unknown) (no (unknown) (unknown) Blood Pressure (units (unknown) date) 145/69 H unknown) (unknown) (no (unknown) (unknown) Bones and chest (units (unknown) date) wall:? No unknown) suspicious bony lesions.? Overlying soft tissues (unknown) (no (unknown) (unknown) Bones:? No acute (units (unknown) date) or suspicious unknown) osseous abnormality. (unknown) (no (unknown) (unknown) Brain: No (units (unkn own) date) intracranial unknown) hemorrhage. Amaro-white differentiation is grossly (unknown) (no (unknown) (unknown) Budesonide (units (unk nown) date) (Budesonide 0.5 unknown) Mg/2 Ml Neb) 0.5 mg INH RTBID DAVID (unknown) (no (unknown) (unknown) CARDIOVASCULAR: (units (unknown) date) Regular rate and unknown) rhythm without murmurs (unknown) (no (unknown) (unknown) CARDIOVASCULAR: (units (unknown) date) negative chest unknown) pain, palpitations (unknown) (no (unknown) (unknown) CC: Weakness (units (u nknown) date) weight loss night unknown) sweats (unknown) (no (unknown) (unknown) CK-MB (CK-2) Rel (units (unknown) date) Index TNP unknown) (unknown) (no (unknown) (unknown) CK-MB (CK-2) Rel (units (unknown) date) Index unknown) (unknown) (no (unknown) (unknown) CK-MB (CK-2) TNP (units (unknown) date) unknown) (unknown) (no (unknown) (unknown) CK-MB (CK-2) (units (u nknown) date) unknown) (unknown) (no (unknown) (unknown) COMPARISON:? (units (u nknown) date) [facility], unknown) CR, XR CHEST 1V, 06/16/2022, 12:43. (unknown) (no (unknown) (unknown) COMPARISON:? (units (u nknown) date) None. unknown) (unknown) (no (unknown) (unknown) CSF spaces: Basal (units (unknown) date) cisterns are unknown) patent. Lateral ventricles are symmetric. (unknown) (no (unknown) (unknown) CT Scan Report (units (unknown) date) unknown) (unknown) (no (unknown) (unknown) CT scan - chest: (units (unknown) date) unknown) (unknown) (no (unknown) (unknown) CT scan - head: (units (unknown) date) unknown) (unknown) (no (unknown) (unknown) Calcium (units (unkno wn) date) (8.4-10.2) mg/dL unknown) (unknown) (no (unknown) (unknown) Calcium 8.1 L (units ( unknown) date) (8.4-10.2) mg/dL unknown) (unknown) (no (unknown) (unknown) Carbon Dioxide (units (unknown) date) (22-32) mmol/L unknown) (unknown) (no (unknown) (unknown) Carbon Dioxide 28 (units (unknown) date) (22-32) mmol/L unknown) (unknown) (no (unknown) (unknown) Chest wall and (units (unknown) date) thyroid:? unknown) Unremarkable (unknown) (no (unknown) (unknown) Chest x-ray: (units (u nknown) date) unknown) (unknown) (no (unknown) (unknown) Chief complaint: (units (unknown) date) Weakness unknown) (unknown) (no (unknown) (unknown) Chloride (98-107) (units (unknown) date) mmol/L unknown) (unknown) (no (unknown) (unknown) Chloride 99 (units (un known) date) (98-107) mmol/L unknown) (unknown) (no (unknown) (unknown) Chronic (units (unkno wn) date) anticoagulation unknown) (unknown) (no (unknown) (unknown) Clinical (units (unkno wn) date) Impression: unknown) (unknown) (no (unknown) (unknown) Complicating (units (u nknown) date) co-morbidities: unknown) History of melanoma (unknown) (no (unknown) (unknown) Confusion (units (unkn own) date) unknown) (unknown) (no (unknown) (unknown) Consultations: (units (unknown) date) 3:36 p.m.. Spoke unknown) with hospitalist, Dr. Parker, agrees patient (unknown) (no (unknown) (unknown) Course (units (unkno wn) date) unknown) (unknown) (no (unknown) (unknown) Craniofacial (units (u nknown) date) structures: No unknown) displaced fracture. Sinuses are clear. 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 on unknown) 06/16/2022 at 13:02 ? ? (unknown) (no (unknown) (unknown) Dictated by: (units (u nknown) date) Brandyn Davis M.D. on unknown) 06/16/2022 at 14:48 ? ? (unknown) (no (unknown) (unknown) Dictated by: (units (u nknown) date) Brandyn Davis M.D. on unknown) 06/16/2022 at 14:52 ? ? (unknown) (no (unknown) (unknown) Differential (units (u nknown) date) considered: unknown) Includes but not limited to neoplastic process, (unknown) (no (unknown) (unknown) Discharge Plan (units (unknown) date) unknown) (unknown) (no (unknown) (unknown) Discontinued (units (u nknown) date) Medications unknown) (unknown) (no (unknown) (unknown) Discussion: (units (un known) date) Appropriate for unknown) admission. Patient would benefit observation for (unknown) (no (unknown) (unknown) Documented By: (units (unknown) date) AGW unknown) (unknown) (no (unknown) (unknown) Documented By: AM (units (unknown) date) unknown) (unknown) (no (unknown) (unknown) Documented By: (units (unknown) date) AWF unknown) (unknown) (no (unknown) (unknown) Documented By: EJ (units (unknown) date) unknown) (unknown) (no (unknown) (unknown) Documented By: JG (units (unknown) date) unknown) (unknown) (no (unknown) (unknown) Documented By: (units (unknown) date) JZF unknown) (unknown) (no (unknown) (unknown) Documented By: MP (units (unknown) date) unknown) (unknown) (no (unknown) (unknown) Documented By: (units (unknown) date) RLS unknown) (unknown) (no (unknown) (unknown) Documented By: (units (unknown) date) TLS unknown) (unknown) (no (unknown) (unknown) Documented By: WJ (units (unknown) date) unknown) (unknown) (no (unknown) (unknown) Documented By: ZC (units (unknown) date) unknown) (unknown) (no (unknown) (unknown) ENT: Slightly dry (units (unknown) date) lips and mucous unknown) membranes (unknown) (no (unknown) (unknown) ER Physician: (units ( unknown) date) Matt Swartz MD unknown) (unknown) (no (unknown) (unknown) EXTREMITIES: No (units (unknown) date) gross deformities. unknown) (unknown) (no (unknown) (unknown) EYES: Pupils (units (u nknown) date) equal round unknown) (unknown) (no (unknown) (unknown) Emergency Report (units (unknown) date) unknown) (unknown) (no (unknown) (unknown) Enoxaparin Sodium (units (unknown) date) (Enoxaparin 30 unknown) Mg/0.3 Ml Syringe) 30 mg SUBCUT DAILY DAVID (unknown) (no (unknown) (unknown) Enoxaparin Sodium (units (unknown) date) (Enoxaparin 40 unknown) Mg/0.4 Ml Syringe) 40 mg SUBCUT DAILY DAVID (unknown) (no (unknown) (unknown) Eos # (Auto) (units (u nknown) date) (0-450) /uL unknown) (unknown) (no (unknown) (unknown) Eos # (Auto) 0 (units (unknown) date) (0-450) /uL unknown) (unknown) (no (unknown) (unknown) Eos % (Auto) (units (u nknown) date) (2-4) % unknown) (unknown) (no (unknown) (unknown) Eos % (Auto) 0.1 (units (unknown) date) L (2-4) % unknown) (unknown) (no (unknown) (unknown) Essential (units (unkn own) date) hypertension unknown) (unknown) (no (unknown) (unknown) Estimated GFR > (units (unknown) date) 60 (>60) mL/min unknown) (unknown) (no (unknown) (unknown) Estimated GFR (units ( unknown) date) (>60) mL/min unknown) (unknown) (no (unknown) (unknown) Exam Narrative: (units (unknown) date) unknown) (unknown) (no (unknown) (unknown) Exam documented (units (unknown) date) above, pertinent unknown) findings include: Cachectic-appearin g dry (unknown) (no (unknown) (unknown) Exam (units (unkno wn) date) unknown) (unknown) (no (unknown) (unknown) FINDINGS:? (units (unk nown) date) unknown) (unknown) (no (unknown) (unknown) Family History (units (unknown) date) (Reviewed 06/17/22 unknown) @ 00:47 by JOSE Crystal) (unknown) (no (unknown) (unknown) Father (units (unknown) date) Diabetes mellitus unknown) (unknown) (no (unknown) (unknown) GASTROINTESTINAL: (units (unknown) date) Abdomen soft, unknown) non-tender (unknown) (no (unknown) (unknown) GASTROINTESTINAL: (units (unknown) date) negative nausea, unknown) vomiting, abdominal pain (unknown) (no (unknown) (unknown) GENERAL: in no (units (unknown) date) distress, not unknown) toxic not dyspneic, is cachectic appearing (unknown) (no (unknown) (unknown) GENERAL: negative (units (unknown) date) chills, positive unknown) fatigue, malaise, dizzy negative fever, (unknown) (no (unknown) (unknown) : negative (units (u nk) date) dysuria, unknown) frequency, hematuria (unknown) (no (unknown) (unknown) Gabapentin (units (k ) date) (Gabapentin 300 Mg unknown) Capsule) 300 mg PO BID DAVID (unknown) (no (unknown) (unknown) General (units ( wn) date) unknown) (unknown) (no (unknown) (unknown) Globulin (units ( wn) date) (1.7-4.1) g/dL unknown) (unknown) (no (unknown) (unknown) Globulin 2.7 (units (u ) date) (1.7-4.1) g/dL unknown) (unknown) (no (unknown) (unknown) Glucose (80-110) (units (unknown) date) mg/dL unknown) (unknown) (no (unknown) (unknown) Glucose 146 H (units ( unknown) date) (80-110) mg/dL unknown) (unknown) (no (unknown) (unknown) HEAD: (units ( wn) date) Normocephalic. unknown) (unknown) (no (unknown) (unknown) HEENT: negative (units (unknown) date) sinus pain, ear unknown) pain, sore throat (unknown) (no (unknown) (unknown) HPI - Weakness (units (unknown) date) unknown) (unknown) (no (unknown) (unknown) HPI Narrative: (units (unknown) date) unknown) (unknown) (no (unknown) (unknown) Hct (41-53) % (units ( unknown) date) unknown) (unknown) (no (unknown) (unknown) Hct 46.6 (41-53) (units (unknown) date) % unknown) (unknown) (no (unknown) (unknown) Hgb (13.5-17.5) (units (unknown) date) g/dL unknown) (unknown) (no (unknown) (unknown) Hgb 15.4 (units (unkno wn) date) (13.5-17.5) g/dL unknown) (unknown) (no (unknown) (unknown) History of (units (unk nown) date) Present Illness unknown) (unknown) (no (unknown) (unknown) History of (units (unk nown) date) melanoma unknown) (unknown) (no (unknown) (unknown) 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 (units (u nknown) date) Bibasilar unknown) infectious or inflammatory pulmonary opacities.? (unknown) (no (unknown) (unknown) IMPRESSION:? No (units (unknown) date) acute intracranial unknown) abnormality.? If there is concern for (unknown) (no (unknown) (unknown) IMPRESSION:? (units (u nknown) date) Possible mild unknown) right and retrocardiac opacities could represent (unknown) (no (unknown) (unknown) INDICATIONS:? (units ( unknown) date) altered mental unknown) status (unknown) (no (unknown) (unknown) INDICATIONS:? (units ( unknown) date) chest pain unknown) (unknown) (no (unknown) (unknown) INDICATIONS:? (units ( unknown) date) suspected sepsis unknown) (unknown) (no (unknown) (unknown) INR (0.9-1.3) (units ( unknown) date) unknown) (unknown) (no (unknown) (unknown) INR 1.5 H (units (unkn own) date) (0.9-1.3) unknown) (unknown) (no (unknown) (unknown) IV NOW ONE (units (unk nown) date) unknown) (unknown) (no (unknown) (unknown) IV Q8H DAVID (units (unk nown) date) unknown) (unknown) (no (unknown) (unknown) Image quality:? (units (unknown) date) Good unknown) (unknown) (no (unknown) (unknown) Imaging Data (units (u nknown) date) unknown) (unknown) (no (unknown) (unknown) Imaging studies (units (unknown) date) independently unknown) reviewed: Chest x-ray no acute process, CT head (unknown) (no (unknown) (unknown) Independently (units ( unknown) date) reviewed EKG as unknown) above atrial sensed ventricular paced rhythm rate (unknown) (no (unknown) (unknown) Influenza A (units (un known) date) (RT-PCR) unknown) (NEGATIVE) (unknown) (no (unknown) (unknown) Influenza A (units (un known) date) (RT-PCR) Flu a unknown) negative (NEGATIVE) (unknown) (no (unknown) (unknown) Influenza B (units (un known) date) (RT-PCR) unknown) (NEGATIVE) (unknown) (no (unknown) (unknown) Influenza B (units (un known) date) (RT-PCR) Flu b unknown) negative (NEGATIVE) (unknown) (no (unknown) (unknown) Infusion: (units (unkn own) date) 06/17/22 05:15 unknown) Dose: 0 mls/hr (unknown) (no (unknown) (unknown) Infusion: (units (unkn own) date) 06/17/22 13:33 unknown) Dose: 84 mls/hr (unknown) (no (unknown) (unknown) Infusion: (units (unkn own) date) 06/17/22 14:35 unknown) Dose: 25 mls/hr (unknown) (no (unknown) (unknown) Infusion: (units (unkn own) date) 06/17/22 22:14 unknown) Dose: 25 mls/hr (unknown) (no (unknown) (unknown) Infusion: (units (unkn own) date) 06/18/22 05:23 unknown) Dose: 25 mls/hr (unknown) (no (unknown) (unknown) Infusion: (units (unkn own) date) 06/18/22 12:43 unknown) Dose: 0 mls/hr (unknown) (no (unknown) (unknown) Infusion: (units (unkn own) date) 06/18/22 21:21 unknown) Dose: 25 mls/hr (unknown) (no (unknown) (unknown) Initial Vital (units ( unknown) date) Signs unknown) (unknown) (no (unknown) (unknown) Initial Vital (units ( unknown) date) Signs: unknown) (unknown) (no (unknown) (unknown) [facility] (units (unknown) date) [address] unknown) [place] [address] (unknown) (no (unknown) (unknown) [facility] (units (unknown) date) unknown) (unknown) (no (unknown) (unknown) Lab Data (units (unkno wn) date) unknown) (unknown) (no (unknown) (unknown) Lab Results (units (un known) date) unknown) (unknown) (no (unknown) (unknown) Lab Test results (units (unknown) date) independently unknown) reviewed as above. Pertinent findings: WBC 9.6 (unknown) (no (unknown) (unknown) Labs: (units (unkno wn) date) unknown) (unknown) (no (unknown) (unknown) Lactate (0.7-2.1) (units (unknown) date) mmol/L unknown) (unknown) (no (unknown) (unknown) Lactate 2.7 H (units ( unknown) date) (0.7-2.1) mmol/L unknown) (unknown) (no (unknown) (unknown) Lactate 4.3 H* (units (unknown) date) (0.7-2.1) mmol/L unknown) (unknown) (no (unknown) (unknown) Last Admin: (units (un known) date) 06/16/22 22:54 unknown) Dose: 100 mls/hr (unknown) (no (unknown) (unknown) Last Admin: (units (un known) date) 06/16/22 23:23 unknown) Dose: Not Given (unknown) (no (unknown) (unknown) Last Admin: (units (un known) date) 06/17/22 13:33 unknown) Dose: 84 mls/hr (unknown) (no (unknown) (unknown) Last Admin: (units (un known) date) 06/19/22 09:13 unknown) Dose: 1 tab (unknown) (no (unknown) (unknown) Last Admin: (units (un known) date) 06/19/22 09:13 unknown) Dose: 100 mg (unknown) (no (unknown) (unknown) Last Admin: (units (un known) date) 06/19/22 09:13 unknown) Dose: 5 mg (unknown) (no (unknown) (unknown) Last Admin: (units (un known) date) 06/19/22 09:17 unknown) Dose: Not Given (unknown) (no (unknown) (unknown) Last Admin: (units (un known) date) 06/19/22 10:46 unknown) Dose: 650 mg (unknown) (no (unknown) (unknown) Last Admin: (units (un known) date) 06/19/22 19:27 unknown) Dose: 0.5 mg (unknown) (no (unknown) (unknown) Last Admin: (units (un known) date) 06/19/22 23:28 unknown) Dose: 10 ml (unknown) (no (unknown) (unknown) Last Admin: (units (un known) date) 06/19/22 23:28 unknown) Dose: 300 mg (unknown) (no (unknown) (unknown) Last Admin: (units (un known) date) 06/20/22 05:38 unknown) Dose: 20 mg (unknown) (no (unknown) (unknown) Last Infusion: (units (unknown) date) 06/16/22 14:09 unknown) Dose: 0 mls/hr (unknown) (no (unknown) (unknown) Last Infusion: (units (unknown) date) 06/16/22 22:39 unknown) Dose: 0 mls/hr (unknown) (no (unknown) (unknown) Last Infusion: (units (unknown) date) 06/16/22 22:51 unknown) Dose: 0 mls/hr (unknown) (no (unknown) (unknown) Lipase (23-300) (units (unknown) date) U/L unknown) (unknown) (no (unknown) (unknown) Lipase 45 (units (unkn own) date) (23-300) U/L unknown) (unknown) (no (unknown) (unknown) Loc: ED (units (unkno wn) date) unknown) (unknown) (no (unknown) (unknown) Lungs and (units (unkn own) date) pleura:? Bilateral unknown) [id number] pleural effusions, slightly (unknown) (no (unknown) (unknown) Lungs and pleura:? (units (unknown) date) Low lung volumes.? unknown) Possible mild right and retrocardiac basal (unknown) (no (unknown) (unknown) Lymph # (Auto) (units (unknown) date) (9399-2314) /uL unknown) (unknown) (no (unknown) (unknown) Lymph # (Auto) (units (unknown) date) 400 L (8490-0356) unknown) /uL (unknown) (no (unknown) (unknown) Lymph % (Auto) (units (unknown) date) (25-40) % unknown) (unknown) (no (unknown) (unknown) Lymph % (Auto) (units (unknown) date) 4.6 L (25-40) % unknown) (unknown) (no (unknown) (unknown) MCH (26-34) PG (units (unknown) date) unknown) (unknown) (no (unknown) (unknown) MCH 30.4 (26-34) (units (unknown) date) PG unknown) (unknown) (no (unknown) (unknown) MCHC (30-36) % (units (unknown) date) unknown) (unknown) (no (unknown) (unknown) MCHC 33.0 (30-36) (units (unknown) date) % unknown) (unknown) (no (unknown) (unknown) MCV (80-100) fL (units (unknown) date) unknown) (unknown) (no (unknown) (unknown) MCV 92.4 (80-100) (units (unknown) date) fL unknown) (unknown) (no (unknown) (unknown) MDM - Weakness (units (unknown) date) unknown) (unknown) (no (unknown) (unknown) MDM Narrative (units ( unknown) date) unknown) (unknown) (no (unknown) (unknown) MDM (units (unkno wn) date) unknown) (unknown) (no (unknown) (unknown) MR#: [id number] (units (unknown) date) unknown) (unknown) (no (unknown) (unknown) MUSCULOSKELETAL: (units (unknown) date) negative muscle or unknown) bony pain (unknown) (no (unknown) (unknown) Magnesium (units (unkn own) date) (1.6-2.3) mg/dL unknown) (unknown) (no (unknown) (unknown) Magnesium 2.6 H (units (unknown) date) (1.6-2.3) mg/dL unknown) (unknown) (no (unknown) (unknown) Mediastinum, (units (u nknown) date) heart, and unknown) esophagus:? No hiatal hernia.? Left chest wall pulse (unknown) (no (unknown) (unknown) Mediastinum:? (units ( unknown) date) Mediastinal unknown) contours appear normal.? Heart size is normal.? (unknown) (no (unknown) (unknown) Medical History (units (unknown) date) (Updated 06/17/22 unknown) @ 00:55 by Hawa Michael [facility]) (unknown) (no (unknown) (unknown) Medical decision (units (unknown) date) making narrative: unknown) (unknown) (no (unknown) (unknown) Medical records (units (unknown) date) reviewed: ER unknown) visits from a few days ago (unknown) (no (unknown) (unknown) Medication (units (unk nown) date) Instructions unknown) Recorded Confirmed (unknown) (no (unknown) (unknown) [id number], (units (unknown) date) unknown) (unknown) (no (unknown) (unknown) Mode of arrival: (units (unknown) date) Wheelchair unknown) (unknown) (no (unknown) (unknown) [place] # (Auto) (units ( unknown) date) (0-900) /uL unknown) (unknown) (no (unknown) (unknown) [place] # (Auto) 900 (units (unknown) date) (0-900) /uL unknown) (unknown) (no (unknown) (unknown) [place] % (Auto) (units ( unknown) date) (3-14) % unknown) (unknown) (no (unknown) (unknown) [place] % (Auto) 9.4 (units (unknown) date) (3-14) % unknown) (unknown) (no (unknown) (unknown) Mother (units (unknown) date) No problems noted. unknown) (unknown) (no (unknown) (unknown) Multivitamins (units ( unknown) date) (Multivitamin 1 unknown) Tablet) 1 tab PO DAILY DAVID (unknown) (no (unknown) (unknown) NECK: Trachea (units ( unknown) date) midline. unknown) (unknown) (no (unknown) (unknown) NEURO: AOx4. (units (u nknown) date) Clear speech no unknown) facial droop light touch intact to bilateral face (unknown) (no (unknown) (unknown) NEUROLOGIC: (units (un known) date) negative weakness, unknown) numbness (unknown) (no (unknown) (unknown) NT-Pro-B (units (unkno wn) date) Natriuret Pep unknown) (<450) pg/mL (unknown) (no (unknown) (unknown) NT-Pro-B (units (unkno wn) date) Natriuret Pep 1430 unknown) H (<450) pg/mL (unknown) (no (unknown) (unknown) Naloxone HCl (units (u nknown) date) (Naloxone 0.4 unknown) Mg/Ml Vial) 0.2 mg IV Q2MIN PRN (unknown) (no (unknown) (unknown) Narrative (units (unkn own) date) unknown) (unknown) (no (unknown) (unknown) Narrative: (units (unk nown) date) unknown) (unknown) (no (unknown) (unknown) Neut # (Auto) (units ( unknown) date) (4646-7143) /uL unknown) (unknown) (no (unknown) (unknown) Neut # (Auto) (units ( unknown) date) 8200 H (6316-3330) unknown) /uL (unknown) (no (unknown) (unknown) Neut % (Auto) (units ( unknown) date) (50-75) % unknown) (unknown) (no (unknown) (unknown) Neut % (Auto) (units ( unknown) date) 85.1 H (50-75) % unknown) (unknown) (no (unknown) (unknown) Noncontrast 4.5 (units (unknown) date) mm thick angled unknown) axial sections acquired from the foramen magnum (unknown) (no (unknown) (unknown) Ondansetron HCl (units (unknown) date) (Ondansetron 4 Mg unknown) Odt) 4 mg PO Q8HR PRN (unknown) (no (unknown) (unknown) Ondansetron HCl (units (unknown) date) (Ondansetron 4 unknown) Mg/2 Ml Inj) 4 mg IV NOW PRN (unknown) (no (unknown) (unknown) Ondansetron HCl (units (unknown) date) (Ondansetron 4 unknown) Mg/2 Ml Inj) 4 mg IV Q4HR PRN (unknown) (no (unknown) (unknown) Ordered: (units (unkno wn) date) unknown) (unknown) (no (unknown) (unknown) Ordering (units (unkno wn) date) Provider: unknown) Matt Swartz MD (unknown) (no (unknown) (unknown) Orders (units (unkno wn) date) unknown) (unknown) (no (unknown) (unknown) Other findings as (units (unknown) date) above.? Of note, unknown) the liver and spleen are significantly (unknown) (no (unknown) (unknown) Oxygen Delivery (units (unknown) date) Method 06/16/22 unknown) 12:21 (unknown) (no (unknown) (unknown) Oxygen Delivery (units (unknown) date) Method Room Air unknown) (unknown) (no (unknown) (unknown) Oxygen Delivery (units (unknown) date) Method unknown) (unknown) (no (unknown) (unknown) PRN Reason: (units (un known) date) Fever/Mild Pain unknown) (1-3) (unknown) (no (unknown) (unknown) PRN Reason: Flush (units (unknown) date) unknown) (unknown) (no (unknown) (unknown) PRN Reason: (units (un known) date) Nausea And unknown) Vomiting (unknown) (no (unknown) (unknown) PRN Reason: (units (un known) date) Opiate Reversal unknown) (unknown) (no (unknown) (unknown) PROCEDURE:? CT (units (unknown) date) CHEST W CON unknown) (unknown) (no (unknown) (unknown) PROCEDURE:? CT (units (unknown) date) HEAD/BRAIN WO CON unknown) (unknown) (no (unknown) (unknown) PROCEDURE:? XR (units (unknown) date) CHEST 1V unknown) (unknown) (no (unknown) (unknown) PSYCH: Not (units (unk nown) date) anxious, is unknown) cooperative (unknown) (no (unknown) (unknown) PT (10.1-12.7) (units (unknown) date) SECONDS unknown) (unknown) (no (unknown) (unknown) PT 17.6 H (units (unkn own) date) (10.1-12.7) unknown) SECONDS (unknown) (no (unknown) (unknown) Pacemaker (units (unkn own) date) unknown) (unknown) (no (unknown) (unknown) Pantoprazole (units (u nknown) date) Sodium unknown) (Pantoprazole Dr 20 Mg Tablet) 20 mg PO 0600 DAVID (unknown) (no (unknown) (unknown) Patient (units (unkno wn) date) Disposition: unknown) Admitted as Observation (unknown) (no (unknown) (unknown) Patient History (units (unknown) date) unknown) (unknown) (no (unknown) (unknown) Patient brought (units (unknown) date) in by from unknown) Cardiology office for routine office visit. I (unknown) (no (unknown) (unknown) Patient: (units (unkno wn) date) Yoseph Cardoso unknown) MR#: [id number] (unknown) (no (unknown) (unknown) Patient: (units (unkno wn) date) Yoseph Cardoso unknown) (unknown) (no (unknown) (unknown) Phosphorus (units (unk nown) date) (2.3-3.7) mg/dL unknown) (unknown) (no (unknown) (unknown) Phosphorus 4.1 H (units (unknown) date) (2.3-3.7) mg/dL unknown) (unknown) (no (unknown) (unknown) Piperacillin (units (u nknown) date) Sod/Tazobactam unknown) (Sod 3.375 gm/ Sodium Chloride) 100 mls @ 25 mls/hr (unknown) (no (unknown) (unknown) Piperacillin (units (u nknown) date) Sod/Tazobactam unknown) (Sod 4.5 gm/ Sodium Chloride) 100 mls @ 200 mls/hr (unknown) (no (unknown) (unknown) Plt Count (units (unkn own) date) (150-400) X103/uL unknown) (unknown) (no (unknown) (unknown) Plt Count 222 (units ( unknown) date) (150-400) X103/uL unknown) (unknown) (no (unknown) (unknown) Potassium (units (unkn own) date) (3.4-5.1) mmol/L unknown) (unknown) (no (unknown) (unknown) Potassium 4.8 (units ( unknown) date) (3.4-5.1) mmol/L unknown) (unknown) (no (unknown) (unknown) Procalcitonin (units ( unknown) date) (<0.5) ng/mL unknown) (unknown) (no (unknown) (unknown) Procalcitonin (units ( unknown) date) 3.27 H (<0.5) unknown) ng/mL (unknown) (no (unknown) (unknown) Procedure: CT (units ( unknown) date) chest w con unknown) (unknown) (no (unknown) (unknown) Procedure: CT (units ( unknown) date) head/brain wo con unknown) (unknown) (no (unknown) (unknown) Procedure: XR (units ( unknown) date) chest 1V unknown) (unknown) (no (unknown) (unknown) Pulse Oximetry (units (unknown) date) 100 96 unknown) (unknown) (no (unknown) (unknown) Pulse Oximetry 91 (units (unknown) date) 93 unknown) (unknown) (no (unknown) (unknown) Pulse Oximetry 96 (units (unknown) date) 96 unknown) (unknown) (no (unknown) (unknown) Pulse Oximetry 98 (units (unknown) date) 06/16/22 12:21 unknown) (unknown) (no (unknown) (unknown) Pulse Oximetry 98 (units (unknown) date) 93 unknown) (unknown) (no (unknown) (unknown) Pulse Oximetry 98 (units (unknown) date) unknown) (unknown) (no (unknown) (unknown) Pulse Rate 70 72 (units (unknown) date) unknown) (unknown) (no (unknown) (unknown) Pulse Rate 71 73 (units (unknown) date) unknown) (unknown) (no (unknown) (unknown) Pulse Rate 73 75 (units (unknown) date) unknown) (unknown) (no (unknown) (unknown) Pulse Rate 76 (units ( unknown) date) unknown) (unknown) (no (unknown) (unknown) Pulse Rate 78 (units ( unknown) date) 06/16/22 12:21 unknown) (unknown) (no (unknown) (unknown) Pulse Rate 78 79 (units (unknown) date) unknown) (unknown) (no (unknown) (unknown) RBC (4.5-5.9) (units ( unknown) date) X106/uL unknown) (unknown) (no (unknown) (unknown) RBC 5.05 (units (unkno wn) date) (4.5-5.9) X106/uL unknown) (unknown) (no (unknown) (unknown) RDW (11.6-14.8) % (units (unknown) date) unknown) (unknown) (no (unknown) (unknown) RDW 14.4 (units (unkno wn) date) (11.6-14.8) % unknown) (unknown) (no (unknown) (unknown) RESPIRATORY: Clear (units (unknown) date) to auscultation. unknown) Breath sounds equal bilaterally. No wheezes, (unknown) (no (unknown) (unknown) RESPIRATORY: (units (u nknown) date) negative dyspnea, unknown) cough (unknown) (no (unknown) (unknown) ROS Unobtainable: (units (unknown) date) All systems unknown) reviewed + are unremarkable except as noted in HPI (unknown) (no (unknown) (unknown) RSV (PCR) (units (unkn own) date) (Negative) unknown) (unknown) (no (unknown) (unknown) RSV (PCR) (units (unkn own) date) Negative unknown) (Negative) (unknown) (no (unknown) (unknown) Radiologist (units (un known) date) Impression: unknown) (unknown) (no (unknown) (unknown) Re-evaluations: (units (unknown) date) Reviewed with unknown) patient and . They do agree for admission. (unknown) (no (unknown) (unknown) Related Data (units (u nknown) date) unknown) (unknown) (no (unknown) (unknown) Respiratory Rate (units (unknown) date) 17 16 unknown) (unknown) (no (unknown) (unknown) Respiratory Rate (units (unknown) date) 20 13 unknown) (unknown) (no (unknown) (unknown) Respiratory Rate (units (unknown) date) 22 06/16/22 12:21 unknown) (unknown) (no (unknown) (unknown) Respiratory Rate (units (unknown) date) 22 14 unknown) (unknown) (no (unknown) (unknown) Respiratory Rate (units (unknown) date) 22 unknown) (unknown) (no (unknown) (unknown) Review of Systems (units (unknown) date) unknown) (unknown) (no (unknown) (unknown) SARS-CoV-2 (PCR) (units (unknown) date) (Negative) unknown) (unknown) (no (unknown) (unknown) SARS-CoV-2 (PCR) (units (unknown) date) Negative unknown) (Negative) (unknown) (no (unknown) (unknown) DAVID (units (unkno wn) date) unknown) (unknown) (no (unknown) (unknown) SKIN: Warm and (units (unknown) date) dry unknown) (unknown) (no (unknown) (unknown) SKIN: negative (units (unknown) date) rash, skin lesions unknown) (unknown) (no (unknown) (unknown) Signed By: (units (unk nown) date) unknown) (unknown) (no (unknown) (unknown) Signed (units (unkno wn) date) unknown) (unknown) (no (unknown) (unknown) Smoking Status: (units (unknown) date) Never smoker unknown) (unknown) (no (unknown) (unknown) Smoking Status: (units (unknown) date) Smoker, status unknown) unknown (unknown) (no (unknown) (unknown) Social History (units (unknown) date) (Reviewed 06/16/22 unknown) @ 14:04 by Matt Swartz MD) (unknown) (no (unknown) (unknown) Sodium (137-145) (units (unknown) date) mmol/L unknown) (unknown) (no (unknown) (unknown) Sodium 135 L (units (u nknown) date) (137-145) mmol/L unknown) (unknown) (no (unknown) (unknown) Sodium Chloride (units (unknown) date) (Normal Saline unknown) 0.9%) 1,000 mls @ 1,000 mls/hr IV BOLUS ONE (unknown) (no (unknown) (unknown) Sodium Chloride (units (unknown) date) (Normal Saline unknown) 0.9%) 1,000 mls @ 100 mls/hr IV CONT DAVID (unknown) (no (unknown) (unknown) Sodium Chloride (units (unknown) date) (Normal Saline unknown) 0.9%) 250 mls @ 21 mls/hr IV Q24H PRN (unknown) (no (unknown) (unknown) Sodium Chloride (units (unknown) date) (Sodium Chloride unknown) 0.9% Flush) 10 ml IV BID DAVID (unknown) (no (unknown) (unknown) Sodium Chloride (units (unknown) date) (Sodium Chloride unknown) 0.9% Flush) 10 ml IV PRN PRN (unknown) (no (unknown) (unknown) Source: patient (units (unknown) date) and family unknown) (unknown) (no (unknown) (unknown) Stated complaint: (units (unknown) date) Pain near unknown) pacemaker (unknown) (no (unknown) (unknown) Stop: 06/16/22 (units (unknown) date) 13:43 unknown) (unknown) (no (unknown) (unknown) Stop: 06/16/22 (units (unknown) date) 20:50 unknown) (unknown) (no (unknown) (unknown) Stop: 06/16/22 (units (unknown) date) 21:48 unknown) (unknown) (no (unknown) (unknown) Stop: 06/17/22 (units (unknown) date) 07:04 unknown) (unknown) (no (unknown) (unknown) Substance Use (units ( unknown) date) Type: does not use unknown) (unknown) (no (unknown) (unknown) Surgical History (units (unknown) date) (Updated 06/16/22 unknown) @ 21:27 by JOSE Crystal) (unknown) (no (unknown) (unknown) Surgical changes (units (unknown) date) and devices:? Left unknown) chest wall pulse generator with dual-chamber (unknown) (no (unknown) (unknown) TECHNIQUE:? One (units (unknown) date) view of the chest unknown) was acquired.? (unknown) (no (unknown) (unknown) TECHNIQUE:? (units (un known) date) unknown) (unknown) (no (unknown) (unknown) There is also (units ( unknown) date) heterogeneous unknown) appearance of the spleen. (unknown) (no (unknown) (unknown) Thiamine HCl (units (u nknown) date) (Thiamine 100 Mg unknown) Tablet) 100 mg PO DAILY DAVID (unknown) (no (unknown) (unknown) Time Seen by (units (u nknown) date) Provider: 06/16/22 unknown) 12:46 (unknown) (no (unknown) (unknown) Total Bilirubin (units (unknown) date) (0.2-1.3) mg/dL unknown) (unknown) (no (unknown) (unknown) Total Bilirubin (units (unknown) date) 2.1 H (0.2-1.3) unknown) mg/dL (unknown) (no (unknown) (unknown) Total Creatine (units (unknown) date) Kinase (55-170) unknown) U/L (unknown) (no (unknown) (unknown) Total Creatine (units (unknown) date) Kinase 53 L unknown) (55-170) U/L (unknown) (no (unknown) (unknown) Total Protein (units ( unknown) date) (6.3-8.2) g/dL unknown) (unknown) (no (unknown) (unknown) Total Protein 5.8 (units (unknown) date) L (6.3-8.2) g/dL unknown) (unknown) (no (unknown) (unknown) Treatments: IV (units (unknown) date) fluid unknown) (unknown) (no (unknown) (unknown) Troponin I < (units (u nknown) date) 0.012 (0.01-0.034) unknown) ng/mL (unknown) (no (unknown) (unknown) Troponin I (units (unk nown) date) (0.01-0.034) ng/mL unknown) (unknown) (no (unknown) (unknown) Upper abdomen:? (units (unknown) date) Heterogeneous unknown) appearance of the liver, not well evaluated on (unknown) (no (unknown) (unknown) Vital Signs - 8 (units (unknown) date) hr unknown) (unknown) (no (unknown) (unknown) Vital Signs (units (un known) date) unknown) (unknown) (no (unknown) (unknown) Vital signs: (units (u nknown) date) unknown) (unknown) (no (unknown) (unknown) Volume:? Vascular (units (unknown) date) calcifications. unknown) Periventricular white matter disease is (unknown) (no (unknown) (unknown) WBC (4.5-11.0) (units (unknown) date) X103/uL unknown) (unknown) (no (unknown) (unknown) WBC 9.6 (units (unkno wn) date) (4.5-11.0) X103/uL unknown) (unknown) (no (unknown) (unknown) [facility] (units (unknown) date) ER for evaluation unknown) of dark urine. CT abdomen pelvis were done, (unknown) (no (unknown) (unknown) XRay Report (units (un known) date) unknown) (unknown) (no (unknown) (unknown) [Embedded Image (units (unknown) date) Not Available] unknown) (unknown) (no (unknown) (unknown) [From Prevnar] (units (unknown) date) and feet x unknown) (unknown) (no (unknown) (unknown) after. (units (unkno wn) date) unknown) (unknown) (no (unknown) (unknown) agrees for (units (unk nown) date) admission. unknown) (unknown) (no (unknown) (unknown) alcohol intake (units (unknown) date) frequency: a few unknown) times a month (unknown) (no (unknown) (unknown) alcohol intake: (units (unknown) date) current unknown) (unknown) (no (unknown) (unknown) amlodipine 5 mg (units (unknown) date) tablet 5 mg PO unknown) DAILY 06/16/22 06/16/22 (unknown) (no (unknown) (unknown) and below (units (unkn own) date) unknown) (unknown) (no (unknown) (unknown) and/or (units (unkno wn) date) unknown) (unknown) (no (unknown) (unknown) apixaban 5 mg (units ( unknown) date) tablet (Eliquis) 5 unknown) mg PO BID blood thinner 06/16/22 06/16/22 (unknown) (no (unknown) (unknown) appear (units (unkno wn) date) unknown) (unknown) (no (unknown) (unknown) appearing (units (unkn own) date) unknown) (unknown) (no (unknown) (unknown) assess for (units (unk nown) date) resolution. unknown) (unknown) (no (unknown) (unknown) atelectasis (units (un known) date) unknown) (unknown) (no (unknown) (unknown) commonly seen (units ( unknown) date) unknown) (unknown) (no (unknown) (unknown) conjugate to of (units (unknown) date) hands unknown) (unknown) (no (unknown) (unknown) consider (units (unkno wn) date) nonemergent MRI if unknown) necessary.? (unknown) (no (unknown) (unknown) coronal and (units (un known) date) sagittal reformats unknown) and 7 mm axial MIP were acquired.? For radiation (unknown) (no (unknown) (unknown) criteria. (units (unkn own) date) unknown) (unknown) (no (unknown) (unknown) denies any chest (units (unknown) date) pain back pain unknown) abdominal pain or headache. (unknown) (no (unknown) (unknown) dose (units (unkno wn) date) unknown) (unknown) (no (unknown) (unknown) electrode leads (units (unknown) date) in place. unknown) (unknown) (no (unknown) (unknown) facial droop. (units ( unknown) date) Fast exam is unknown) negative. Cardiology does not feel this is cardiac (unknown) (no (unknown) (unknown) facial droop. (units ( unknown) date) Fast exam is unknown) negative. Patient denies any chest pain abdominal (unknown) (no (unknown) (unknown) failure (units (unkno wn) date) thrive/dementia/Pa unknown) rkinson's (unknown) (no (unknown) (unknown) fluticasone (units (un known) date) propionate 44 44 unknown) mcg inhalation DAILY 06/16/22 06/16/22 (unknown) (no (unknown) (unknown) following (units (unkn own) date) unknown) (unknown) (no (unknown) (unknown) from the (units (unkno wn) date) unknown) (unknown) (no (unknown) (unknown) further (units (unkno wn) date) evaluation for unknown) abnormal laboratory studies. Patient could be early (unknown) (no (unknown) (unknown) gabapentin 300 mg (units (unknown) date) capsule 300 mg PO unknown) BID 06/16/22 06/16/22 (unknown) (no (unknown) (unknown) generator (units (unkn own) date) unknown) (unknown) (no (unknown) (unknown) greater on the (units (unknown) date) unknown) (unknown) (no (unknown) (unknown) hands with strong (units (unknown) date) equal warehouse helper unknown) 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 (unknown) (no (unknown) (unknown) health/weight (units ( unknown) date) loss cachexia and unknown) balance issues. He had concern for neoplastic (unknown) (no (unknown) (unknown) hemoglobin 15.4 (units (unknown) date) hematocrit 46.6 unknown) platelets 222 PT 17.6 INR 1.5 PTT 38 sodium 135 (unknown) (no (unknown) (unknown) heterogeneous (units ( unknown) date) unknown) (unknown) (no (unknown) (unknown) history, and (units (u nknown) date) unknown) (unknown) (no (unknown) (unknown) household (units (unkn own) date) members: spouse unknown) (unknown) (no (unknown) (unknown) intact. (units (unkno wn) date) unknown) (unknown) (no (unknown) (unknown) kV according to (units (unknown) date) patient size.? unknown) (unknown) (no (unknown) (unknown) lactic acid have (units (unknown) date) been ordered unknown) (unknown) (no (unknown) (unknown) maintained. (units (un known) date) unknown) (unknown) (no (unknown) (unknown) mcg/actuation HFA (units (unknown) date) aerosol inhaler unknown) (unknown) (no (unknown) (unknown) moderate (units (unkno wn) date) unknown) (unknown) (no (unknown) (unknown) no acute process (units (unknown) date) other than unknown) diverticulosis without diverticulitis. states (unknown) (no (unknown) (unknown) no acute process. (units (unknown) date) CT chest unknown) nonspecific opacities (unknown) (no (unknown) (unknown) opacities.? No (units (unknown) date) pleural unknown) effusions.? (unknown) (no (unknown) (unknown) or early airspace (units (unknown) date) disease.? Consider unknown) future imaging surveillance to assess for (unknown) (no (unknown) (unknown) pain back pain (units (unknown) date) headache unknown) (unknown) (no (unknown) (unknown) parenchymal (units (un known) date) unknown) (unknown) (no (unknown) (unknown) pathology, (units (unk nown) date) consider MRI. unknown) (unknown) (no (unknown) (unknown) patient has had 30 (units (unknown) date) lb weight loss in unknown) the past few months with night sweats it in (unknown) (no (unknown) (unknown) patient (units (unkno wn) date) unknown) (unknown) (no (unknown) (unknown) pneumococcal (units (u nknown) date) 7-valent AdvReac unknown) Intermediate swelling Verified 06/16/22 12:46 (unknown) (no (unknown) (unknown) positive night (units (unknown) date) sweats. Positive unknown) weight loss (unknown) (no (unknown) (unknown) potassium 4.8 BUN (units (unknown) date) 34 creatinine 0.99 unknown) glucose 146 lactic acid 4.3. BNP 1430 (unknown) (no (unknown) (unknown) process. I spoke (units (unknown) date) with dr gillette. unknown) However, patient was recently seen at (unknown) (no (unknown) (unknown) pulmonary apices (units (unknown) date) to the posterior unknown) costophrenic angles.? 1 mm axial lung, 5 mm (unknown) (no (unknown) (unknown) rales, or (units (unkn own) date) rhonchi. unknown) (unknown) (no (unknown) (unknown) reduction, the (units ( unknown) date) following was unknown) used:? automated exposure control, adjustment of mA (unknown) (no (unknown) (unknown) related. Patient (units (unknown) date) here for routine unknown) annual cardiac workup/checkup. Patient (unknown) (no (unknown) (unknown) resolution. (units (un known) date) unknown) (unknown) (no (unknown) (unknown) right greater than (units (unknown) date) left pleural unknown) effusions.? Consider future imaging surveillance (unknown) (no (unknown) (unknown) right.? Bibasilar (units (unknown) date) opacities and unknown) nodularity also present. (unknown) (no (unknown) (unknown) sepsis. Patient (units (unknown) date) and family agree unknown) for admit. I did speak with hospitalist (unknown) (no (unknown) (unknown) should be (units (unkn own) date) admitted for unknown) observation. Do not start any antibiotics at this time. (unknown) (no (unknown) (unknown) shuffled gait. (units (unknown) date) Generalized unknown) weakness and malaise. However no slurred speech or (unknown) (no (unknown) (unknown) size (units (unkno wn) date) unknown) (unknown) (no (unknown) (unknown) size.? 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 (units (unknown) date) Patient has unknown) history of melanoma. Patient has had recently (unknown) (no (unknown) (unknown) thick (units (unkno wn) date) unknown) (unknown) (no (unknown) (unknown) this study.? (units (u nknown) date) unknown) (unknown) (no (unknown) (unknown) to the (units (unkno wn) date) unknown) (unknown) (no (unknown) (unknown) to (units (unkno wn) date) unknown) (unknown) (no (unknown) (unknown) toxic at this (units ( unknown) date) time. unknown) (unknown) (no (unknown) (unknown) troponin less (units ( unknown) date) than 0.012, unknown) procalcitonin 3.27 (unknown) (no (unknown) (unknown) unremarkable.? (units (unknown) date) unknown) (unknown) (no (unknown) (unknown) vertex, with (units (u nknown) date) coronal and unknown) sagittal reformats.? For radiation dose reduction, the (unknown) (no (unknown) (unknown) visit from a few (units (unknown) date) days ago unknown) (unknown) (no (unknown) (unknown) was used:? (units (unk nown) date) automated exposure unknown) control, adjustment of mA and/or kV according to (unknown) (no (unknown) (unknown) which may be (units (u nknown) date) related to liver unknown) disease.? Please correlate with LFTs, clinical (unknown) (no (unknown) (unknown) with chronic (units (u nknown) date) microangiopathy. unknown) Volume loss is present. These findings are (unknown) (no (unknown) (unknown) with electrode (units (unknown) date) leads.? Coronary unknown) calcifications.? No pathologic adenopathy by Result panel 263 (unknown) (no (unknown) (unknown) (no value) (units (unk nown) date) unknown) (unknown) (no (unknown) (unknown) - If clinically (units (unknown) date) appropriate, unknown) please consider a follow-up ultrasound-guided (unknown) (no (unknown) (unknown) [id number] (units (unkno wn) date) unknown) (unknown) (no (unknown) (unknown) 06/20/22 (units (unkno wn) date) unknown) (unknown) (no (unknown) (unknown) [address] (units (unknown) date) unknown) (unknown) (no (unknown) (unknown) 1st rib, (units (unkno wn) date) unknown) (unknown) (no (unknown) (unknown) Accession (units (unkn own) date) Number: unknown) [id number] (unknown) (no (unknown) (unknown) Additional (units (unk nown) date) findings: unknown) (unknown) (no (unknown) (unknown) After the (units (unkn own) date) administration of unknown) intravenous contrast, 3.0 mm axial sections (unknown) (no (unknown) (unknown) Age/Sex: 86 / M (units (unknown) date) Date of Service: unknown) (unknown) (no (unknown) (unknown) [place] (units ( unknown) date) [id number] unknown) (unknown) (no (unknown) (unknown) Approved by: (units (u nknown) date) germania Grady M.D. on 06/20/2022 at 9:31 (unknown) (no (unknown) (unknown) At least (units (unkno wn) date) moderate cervical unknown) spine degenerative change (unknown) (no (unknown) (unknown) Bones: There is (units (unknown) date) a soft tissue unknown) mass seen associated with the left posterior (unknown) (no (unknown) (unknown) COMPARISON: (units (un known) date) [facility], unknown) CT, CT CHEST [facility], 06/16/2022, 14:03. [place] (unknown) (no (unknown) (unknown) CT HEAD/BRAIN WO (units (unknown) date) CON, 06/16/2022, unknown) 14:03. (unknown) (no (unknown) (unknown) CT Scan Report (units (unknown) date) unknown) (unknown) (no (unknown) (unknown) : 1935 (units (unknown) date) Acct:[id number] unknown) (unknown) (no (unknown) (unknown) Dictated by: (units (u nknown) date) Scott Puga, unknownShahab Askew on 06/20/2022 at 9:23 (unknown) (no (unknown) (unknown) FINDINGS: (units (unkn own) date) unknown) (unknown) (no (unknown) (unknown) Glands: The (units (un known) date) parotid and unknown) submandibular glands appear normal. Thyroid gland (unknown) (no (unknown) (unknown) Hospital, CT, (units ( unknown) date) unknown) (unknown) (no (unknown) (unknown) IMPRESSION: Soft (units (unknown) date) tissue mass unknown) associated with the posterior aspect of the left (unknown) (no (unknown) (unknown) INDICATIONS: (units (u nknown) date) look for unknown) metastatic disease, prev melanoma (unknown) (no (unknown) (unknown) Image quality: (units (unknown) date) Excellent. unknown) (unknown) (no (unknown) (unknown) [facility] (units (unknown) date) unknown) (unknown) (no (unknown) (unknown) Left-sided pacer (units (unknown) date) leads unknown) (unknown) (no (unknown) (unknown) Loc: AC 206-1 (units ( unknown) date) unknown) (unknown) (no (unknown) (unknown) Lymph nodes: No (units (unknown) date) enlarged lymph unknown) nodes seen throughout the neck. (unknown) (no (unknown) (unknown) Miscellaneous: (units (unknown) date) unknown) (unknown) (no (unknown) (unknown) Moderate (units (unkno wn) date) bilateral pleural unknown) effusions are seen. (unknown) (no (unknown) (unknown) Neck spaces: (units (u nknown) date) Postoperative unknown) clips can be seen involving the right inferolateral (unknown) (no (unknown) (unknown) Ordering (units (unkno wn) date) Provider: unknown) Tommy Wells D.O. (unknown) (no (unknown) (unknown) PROCEDURE: CT (units ( unknown) date) SOFT TISSUE NECK unknown) W CON (unknown) (no (unknown) (unknown) Patient: (units (unkno wn) date) Yoseph Cardoso unknown) MR#: [id number] (unknown) (no (unknown) (unknown) Procedure: CT (units ( unknown) date) soft tissue neck unknown) w con (unknown) (no (unknown) (unknown) Signed (units (unkno wn) date) unknown) (unknown) (no (unknown) (unknown) TECHNIQUE: (units (unk nown) date) unknown) (unknown) (no (unknown) (unknown) The oropharynx, (units (unknown) date) nasopharynx, and unknown) pharynx demonstrate no mucosal lesions. The (unknown) (no (unknown) (unknown) Vessels: (units (unkno wn) date) Visualized unknown) vasculature appears patent. (unknown) (no (unknown) (unknown) Visualized brain (units (unknown) date) and orbits appear unknown) normal. Moderate bilateral pleural (unknown) (no (unknown) (unknown) Visualized (units (unk nown) date) sinuses and unknown) mastoids appear unremarkable. At least moderate (unknown) (no (unknown) (unknown) acquired from (units ( unknown) date) the unknown) (unknown) (no (unknown) (unknown) appear normal. (units (unknown) date) unknown) (unknown) (no (unknown) (unknown) appear (units (unkno wn) date) unknown) (unknown) (no (unknown) (unknown) base all (units (unkno wn) date) unknown) (unknown) (no (unknown) (unknown) biopsy for (units (unk nown) date) further unknown) evaluation. (unknown) (no (unknown) (unknown) cervical spine (units (unknown) date) unknown) (unknown) (no (unknown) (unknown) cords, false (units (u nknown) date) vocal cords, unknown) pyriform sinuses, epiglottis, vallecula, and tongue (unknown) (no (unknown) (unknown) degenerative (units (u nknown) date) changes are seen. unknown) (unknown) (no (unknown) (unknown) demonstrates a (units (unknown) date) fracture, with unknown) associated bony lysis. A pathologic fracture is (unknown) (no (unknown) (unknown) demonstrates (units (u nknown) date) unknown) (unknown) (no (unknown) (unknown) effusions are (units ( unknown) date) unknown) (unknown) (no (unknown) (unknown) medial 1st (units (unk nown) date) unknown) (unknown) (no (unknown) (unknown) neck. No (units (unkno wn) date) unknown) (unknown) (no (unknown) (unknown) no significant (units (unknown) date) abnormality. unknown) (unknown) (no (unknown) (unknown) normal. A (units (unkn own) date) left-sided pacer unknown) is partially seen. (unknown) (no (unknown) (unknown) partially seen, (units (unknown) date) with presumed unknown) overlying atelectasis. Superficial soft tissues (unknown) (no (unknown) (unknown) percutaneous (units (u nknown) date) unknown) (unknown) (no (unknown) (unknown) pharynx. 3 mm (units ( unknown) date) thick coronal and unknown) sagittal reformats were generated. For (unknown) (no (unknown) (unknown) radiation dose (units (unknown) date) unknown) (unknown) (no (unknown) (unknown) reduction, the (units (unknown) date) following was unknown) used: automated exposure control. (unknown) (no (unknown) (unknown) rib that (units (unkno wn) date) measures 4.3 x unknown) 3.5 cm in greatest axial dimension. The 1st rib itself (unknown) (no (unknown) (unknown) sella to the (units (u nknown) date) aortic arch. unknown) Additional oblique axial 3.0 mm sections acquired (unknown) (no (unknown) (unknown) soft tissue (units (un known) date) masses can be unknown) seen within this region. (unknown) (no (unknown) (unknown) suspected. (units (unk nown) date) unknown) (unknown) (no (unknown) (unknown) through the (units (un known) date) unknown) (unknown) (no (unknown) (unknown) vocal (units (unkno wn) date) unknown) (unknown) (no (unknown) (unknown) with associated (units (unknown) date) bony lysis and a unknown) pathologic fracture. Result panel 264 (unknown) (no date) (unknown) (unknown) (no value) (units (un known) unknown) (unknown) (no date) (unknown) (unknown) NO GROWTH (units (unk nown) AFTER 4 DAYS unknown) Result panel 265 (unknown) (no (unknown) (unknown) (no value) (units (unk nown) date) unknown) (unknown) (no (unknown) (unknown) (past 8 hours): (units (unknown) date) unknown) (unknown) (no (unknown) (unknown) [id number] (units (unkno wn) date) unknown) (unknown) (no (unknown) (unknown) 06/20/22 06/20/22 (units (unknown) date) 06/20/22 unknown) (unknown) (no (unknown) (unknown) 06/20/22 05:35 (units (unknown) date) unknown) (unknown) (no (unknown) (unknown) 06/20/22 (units (unkno wn) date) unknown) (unknown) (no (unknown) (unknown) 05:35 05:35 05:35 (units (unknown) date) unknown) (unknown) (no (unknown) (unknown) 09:56 06/20/22 (units (unknown) date) unknown) (unknown) (no (unknown) (unknown) 10:09 06/20/22 (units (unknown) date) unknown) (unknown) (no (unknown) (unknown) 11:00 (units (unkno wn) date) unknown) (unknown) (no (unknown) (unknown) 16:00 (units (unkno wn) date) unknown) (unknown) (no (unknown) (unknown) ALT 52 H (units (unkno wn) date) unknown) (unknown) (no (unknown) (unknown) AST 61 H (units (unkno wn) date) unknown) (unknown) (no (unknown) (unknown) Age/Sex: 86 / M (units (unknown) date) unknown) (unknown) (no (unknown) (unknown) Albumin 2.6 L (units ( unknown) date) unknown) (unknown) (no (unknown) (unknown) Albumin/Globulin (units (unknown) date) Ratio 0.9 L unknown) (unknown) (no (unknown) (unknown) Alkaline (units (unkno wn) date) Phosphatase 559 H unknown) (unknown) (no (unknown) (unknown) Assessment + Plan (units (unknown) date) unknown) (unknown) (no (unknown) (unknown) Asthma (units (unkno wn) date) unknown) (unknown) (no (unknown) (unknown) Atrial (units (unkno wn) date) fibrillation unknown) (unknown) (no (unknown) (unknown) BUN 24 H (units (unkno wn) date) unknown) (unknown) (no (unknown) (unknown) BUN/Creatinine (units (unknown) date) Ratio 31.2 H unknown) (unknown) (no (unknown) (unknown) Baso # (Auto) 0 (units (unknown) date) unknown) (unknown) (no (unknown) (unknown) Baso % (Auto) 0.5 (units (unknown) date) unknown) (unknown) (no (unknown) (unknown) Blood Pressure (units (unknown) date) 133/74 unknown) (unknown) (no (unknown) (unknown) Blood Pressure (units (unknown) date) 143/71 H 143/69 H unknown) (unknown) (no (unknown) (unknown) Calcium 7.8 L (units ( unknown) date) unknown) (unknown) (no (unknown) (unknown) Carbon Dioxide 23 (units (unknown) date) unknown) (unknown) (no (unknown) (unknown) Chloride 103 (units (u nknown) date) unknown) (unknown) (no (unknown) (unknown) Chronic (units (unkno wn) date) anticoagulation unknown) (unknown) (no (unknown) (unknown) Creatinine 0.77 (units (unknown) date) unknown) (unknown) (no (unknown) (unknown) Critical Care (units ( unknown) date) time: unknown) (unknown) (no (unknown) (unknown) : 1935 (units (unknown) date) Acct:[id number] unknown) (unknown) (no (unknown) (unknown) Date Patient (units (u nknown) date) Seen: 06/20/22 unknown) (unknown) (no (unknown) (unknown) Date of Service: (units (unknown) date) 06/16/22 unknown) (unknown) (no (unknown) (unknown) Deep Vein (units (unkn own) date) Thrombosis/Pulmona unknown) ry Embolism Present on Admission: No (unknown) (no (unknown) (unknown) Eos # (Auto) 100 (units (unknown) date) unknown) (unknown) (no (unknown) (unknown) Eos % (Auto) 0.8 (units (unknown) date) L unknown) (unknown) (no (unknown) (unknown) Essential (units (unkn own) date) hypertension unknown) (unknown) (no (unknown) (unknown) Estimated GFR > (units (unknown) date) 60 unknown) (unknown) (no (unknown) (unknown) Exam (units (unkno wn) date) unknown) (unknown) (no (unknown) (unknown) Family History (units (unknown) date) (Reviewed 06/17/22 unknown) @ 00:47 [facility]) (unknown) (no (unknown) (unknown) Father (units (unknown) date) Diabetes mellitus unknown) (unknown) (no (unknown) (unknown) Fraction of (units (un known) date) Inspired Oxygen 21 unknown) (unknown) (no (unknown) (unknown) Globulin 2.8 (units (u nknown) date) unknown) (unknown) (no (unknown) (unknown) Glucose 85 (units (unk nown) date) unknown) (unknown) (no (unknown) (unknown) Hct 47.4 (units (unkno wn) date) unknown) (unknown) (no (unknown) (unknown) Hgb 15.7 (units (unkno wn) date) unknown) (unknown) (no (unknown) (unknown) History of (units (unk nown) date) melanoma unknown) (unknown) (no (unknown) (unknown) 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 (unknown) (no (unknown) (unknown) I spent a total (units (unknown) date) of [] minutes of unknown) critical care time on this patient's care (unknown) (no (unknown) (unknown) [facility] (units (unknown) date) [address] unknown) [place] [address] (unknown) (no (unknown) (unknown) Laboratory (units (unk nown) date) Results - last unknown) hr (unknown) (no (unknown) (unknown) Labs (units (unkno wn) date) unknown) (unknown) (no (unknown) (unknown) Labs: (units (unkno wn) date) unknown) (unknown) (no (unknown) (unknown) Lymph # (Auto) (units (unknown) date) 600 L unknown) (unknown) (no (unknown) (unknown) Lymph % (Auto) (units (unknown) date) 8.5 L unknown) (unknown) (no (unknown) (unknown) MCH 30.5 (units (unkno wn) date) unknown) (unknown) (no (unknown) (unknown) MCHC 33.2 (units (unkn own) date) unknown) (unknown) (no (unknown) (unknown) MCV 91.7 (units (unkno wn) date) unknown) (unknown) (no (unknown) (unknown) Medical History (units (unknown) date) (Updated 06/17/22 unknown) @ 00:55 by JOSE Crystal) (unknown) (no (unknown) (unknown) Refugio # (Auto) (units ( unknown) date) 1000 H unknown) (unknown) (no (unknown) (unknown) [place] % (Auto) (units ( unknown) date) 14.7 H unknown) (unknown) (no (unknown) (unknown) Mother (units (unknown) date) No problems noted. unknown) (unknown) (no (unknown) (unknown) Neut # (Auto) (units ( unknown) date) 5100 unknown) (unknown) (no (unknown) (unknown) Neut % (Auto) (units ( unknown) date) 75.5 H unknown) (unknown) (no (unknown) (unknown) Objective (units (unkn own) date) unknown) (unknown) (no (unknown) (unknown) Oxygen Delivery (units (unknown) date) Method Room Air unknown) (unknown) (no (unknown) (unknown) Oxygen Delivery (units (unknown) date) Method unknown) (unknown) (no (unknown) (unknown) Oxygen Flow Rate (units (unknown) date) 0 0 unknown) (unknown) (no (unknown) (unknown) Oxygen Flow Rate (units (unknown) date) 0 unknown) (unknown) (no (unknown) (unknown) PFSH (units (unkno wn) date) unknown) (unknown) (no (unknown) (unknown) Pacemaker (units (unkn own) date) unknown) (unknown) (no (unknown) (unknown) Patient: (units (unkno wn) date) Yoseph Cardoso unknown) MR#: [id number] (unknown) (no (unknown) (unknown) Phosphorus 3.1 (units (unknown) date) unknown) (unknown) (no (unknown) (unknown) Plt Count 176 (units ( unknown) date) unknown) (unknown) (no (unknown) (unknown) Potassium 4.1 (units ( unknown) date) unknown) (unknown) (no (unknown) (unknown) Progress Note (units ( unknown) date) unknown) (unknown) (no (unknown) (unknown) Provider: (units (unkn own) date) Tommy Wells unknown) D.O. (unknown) (no (unknown) (unknown) Pulse Oximetry 97 (units (unknown) date) 95 97 unknown) (unknown) (no (unknown) (unknown) Pulse Oximetry 98 (units (unknown) date) unknown) (unknown) (no (unknown) (unknown) Pulse Rate 79 97 (units (unknown) date) H unknown) (unknown) (no (unknown) (unknown) Pulse Rate 87 (units ( unknown) date) unknown) (unknown) (no (unknown) (unknown) Quality (units (unkno wn) date) unknown) (unknown) (no (unknown) (unknown) RBC 5.17 (units (unkno wn) date) unknown) (unknown) (no (unknown) (unknown) RDW 14.6 (units (unkno wn) date) unknown) (unknown) (no (unknown) (unknown) Respiratory Rate (units (unknown) date) 17 17 unknown) (unknown) (no (unknown) (unknown) Respiratory Rate (units (unknown) date) 17 unknown) (unknown) (no (unknown) (unknown) SaO2/FiO2 Ratio (units (unknown) date) 452 unknown) (unknown) (no (unknown) (unknown) Signed By: (units (unk nown) date) unknown) (unknown) (no (unknown) (unknown) Smoking Status: (units (unknown) date) Never smoker unknown) (unknown) (no (unknown) (unknown) Social History (units (unknown) date) (Reviewed 06/16/22 unknown) @ 14:04 by Matt Swartz MD) (unknown) (no (unknown) (unknown) Sodium 135 L (units (u nknown) date) unknown) (unknown) (no (unknown) (unknown) Subjective (units (unk nown) date) unknown) (unknown) (no (unknown) (unknown) Surgical History (units (unknown) date) (Updated 06/16/22 unknown) @ 21:27 by Hawa Michael [facility]) (unknown) (no (unknown) (unknown) Temperature 97.1 (units (unknown) date) F L 97.3 F L unknown) (unknown) (no (unknown) (unknown) Temperature 97.1 (units (unknown) date) F L unknown) (unknown) (no (unknown) (unknown) Time Spent With (units (unknown) date) Patient unknown) (unknown) (no (unknown) (unknown) Total Bilirubin (units (unknown) date) 2.5 H unknown) (unknown) (no (unknown) (unknown) Total Protein 5.4 (units (unknown) date) L unknown) (unknown) (no (unknown) (unknown) VTE (units (unkno wn) date) unknown) (unknown) (no (unknown) (unknown) Vital Signs (units (un known) date) unknown) (unknown) (no (unknown) (unknown) WBC 6.7 (units (unkno wn) date) unknown) (unknown) (no (unknown) (unknown) [Embedded Image (units (unknown) date) Not Available] unknown) (unknown) (no (unknown) (unknown) alcohol intake: (units (unknown) date) current unknown) (unknown) (no (unknown) (unknown) household (units (unkn own) date) members: spouse unknown) (unknown) (no (unknown) (unknown) today; this time (units (unknown) date) is exclusive of unknown) procedural time. Result panel 266 (unknown) (no (unknown) (unknown) (no value) (units (unk nown) date) unknown) (unknown) (no (unknown) (unknown) (moderately low (units (unknown) date) for age), recent unknown) wt loss of 30 lbs, pt reporting decrease in (unknown) (no (unknown) (unknown) (past 8 hours): (units (unknown) date) unknown) (unknown) (no (unknown) (unknown) -CT guided liver (units (unknown) date) biopsy with IR unknown) ordered and will be completed on at 2pm (unknown) (no (unknown) (unknown) -CT soft tissue (units (unknown) date) neck shows mass unknown) lesion behind left 1st rib with pathologic (unknown) (no (unknown) (unknown) -MRI brain (units (unkn own) date) unattainable due unknown) to pacemaker, Dr. 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 Arianna Reeder and updated (unknown) (no (unknown) (unknown) [id number] (units (unkno wn) date) unknown) (unknown) (no (unknown) (unknown) 06/20/22 06/20/22 (units (unknown) date) 06/20/22 unknown) (unknown) (no (unknown) (unknown) 06/20/22 05:35 (units (unknown) date) unknown) (unknown) (no (unknown) (unknown) 06/20/22 1730 (units ( unknown) date) unknown) (unknown) (no (unknown) (unknown) 06/20/22 (units (unkno wn) date) unknown) (unknown) (no (unknown) (unknown) 05:35 05:35 05:35 (units (unknown) date) unknown) (unknown) (no (unknown) (unknown) 09:56 06/20/22 (units (unknown) date) unknown) (unknown) (no (unknown) (unknown) 1. 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 Sepsis ruled (units (unknown) date) out unknown) (unknown) (no (unknown) (unknown) 3. UTI, treated (units (unknown) date) unknown) (unknown) (no (unknown) (unknown) 4. Acute (units (unkno wn) date) metabolic unknown) encephalopathy, improving (unknown) (no (unknown) (unknown) 5. Essential (units (u nknown) date) hypertension unknown) (unknown) (no (unknown) (unknown) 6. Atrial (units (unkn own) date) fibrillation unknown) (unknown) (no (unknown) (unknown) 7. Moderate (units (unk nown) date) protein calorie unknown) malnutrition r/t poor appetite x1 month aeb BMI 22.9 (unknown) (no (unknown) (unknown) ? (units (unkno wn) date) unknown) (unknown) (no (unknown) (unknown) ABD: Soft, NT/ND, (units (unknown) date) BT present in all unknown) 4 quadrants, no organomegaly or masses (unknown) (no (unknown) (unknown) ALT 52 H (units (unkno wn) date) unknown) (unknown) (no (unknown) (unknown) AST 61 H (units (unkno wn) date) unknown) (unknown) (no (unknown) (unknown) Age/Sex: 86 / M (units (unknown) date) unknown) (unknown) (no (unknown) (unknown) Albumin 2.6 L (units ( unknown) date) unknown) (unknown) (no (unknown) (unknown) Albumin/Globulin (units (unknown) date) Ratio 0.9 L unknown) (unknown) (no (unknown) (unknown) Alkaline (units (unkno wn) date) Phosphatase 559 H unknown) (unknown) (no (unknown) (unknown) Although he is (units ( unknown) date) alert and oriented unknown) today, he appears to be unable to make complex (unknown) (no (unknown) (unknown) 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 (unknown) (no (unknown) (unknown) Assessment + Plan (units (unknown) date) narrative: unknown) (unknown) (no (unknown) (unknown) Assessment + Plan (units (unknown) date) unknown) (unknown) (no (unknown) (unknown) Asthma (units (unkno wn) date) unknown) (unknown) (no (unknown) (unknown) Atrial (units (unkno wn) date) fibrillation unknown) (unknown) (no (unknown) (unknown) BP normotensive (units (unknown) date) today. Continue unknown) amlodipine. (unknown) (no (unknown) (unknown) BUN 24 H (units (unkno wn) date) unknown) (unknown) (no (unknown) (unknown) BUN/Creatinine (units (unknown) date) Ratio 31.2 H unknown) (unknown) (no (unknown) (unknown) Baso # (Auto) 0 (units (unknown) date) unknown) (unknown) (no (unknown) (unknown) Baso % (Auto) 0.5 (units (unknown) date) unknown) (unknown) (no (unknown) (unknown) Blood Pressure (units (unknown) date) 133/74 unknown) (unknown) (no (unknown) (unknown) Blood Pressure (units (unknown) date) 143/71 H 143/69 H unknown) (unknown) (no (unknown) (unknown) CHEST: (units (unkno wn) date) Respiratory unknown) excursions symmetric, CTAB (unknown) (no (unknown) (unknown) CV: irregularly (units (unknown) date) irregular, no unknown) M/R/G (unknown) (no (unknown) (unknown) Calcium 7.8 L (units ( unknown) date) unknown) (unknown) (no (unknown) (unknown) Carbon Dioxide 23 (units (unknown) date) unknown) (unknown) (no (unknown) (unknown) Chloride 103 (units (u nknown) date) unknown) (unknown) (no (unknown) (unknown) Chronic (units (unkno wn) date) anticoagulation unknown) (unknown) (no (unknown) (unknown) Code status (units (un known) date) unknown) (unknown) (no (unknown) (unknown) Creatinine 0.77 (units (unknown) date) unknown) (unknown) (no (unknown) (unknown) Critical Care (units ( unknown) date) time: unknown) (unknown) (no (unknown) (unknown) : 1935 (units (unknown) date) Acct:[id number] unknown) (unknown) (no (unknown) (unknown) Date Patient (units (u nknown) date) Seen: 06/20/22 unknown) (unknown) (no (unknown) (unknown) Date of Service: (units (unknown) date) 06/16/22 unknown) (unknown) (no (unknown) (unknown) Deep Vein (units (unkn own) date) Thrombosis/Pulmona unknown) ry Embolism Present on Admission: No (unknown) (no (unknown) (unknown) Diagnosed at (units (u nknown) date) [facility] unknown) [facility] Emergency [facility].? Urine culture (unknown) (no (unknown) (unknown) Disposition (units (un known) date) unknown) (unknown) (no (unknown) (unknown) EXTR: warm, well (units (unknown) date) perfused, no C/C/E unknown) (unknown) (no (unknown) (unknown) Eliquis for (units (un known) date) biopsy.? He is unknown) status post pacemaker. (unknown) (no (unknown) (unknown) Eos # (Auto) 100 (units (unknown) date) unknown) (unknown) (no (unknown) (unknown) Eos % (Auto) 0.8 (units (unknown) date) L unknown) (unknown) (no (unknown) (unknown) Essential (units (unkn own) date) hypertension unknown) (unknown) (no (unknown) (unknown) Estimated GFR > (units (unknown) date) 60 unknown) (unknown) (no (unknown) (unknown) Exam Narrative: (units (unknown) date) unknown) (unknown) (no (unknown) (unknown) Exam (units (unkno wn) date) unknown) (unknown) (no (unknown) (unknown) Family History (units (unknown) date) (Reviewed 06/17/22 unknown) @ 00:47 by Hawa Michael [facility]) (unknown) (no (unknown) (unknown) Father (units (unknown) date) Diabetes mellitus unknown) (unknown) (no (unknown) (unknown) Fraction of (units (un known) date) Inspired Oxygen 21 unknown) (unknown) (no (unknown) (unknown) Full (units (unkno wn) date) unknown) (unknown) (no (unknown) (unknown) GEN:? Pleasant (units (unknown) date) elderly male, unknown) alert and oriented x 2, NAD, hard of hearing (unknown) (no (unknown) (unknown) Globulin 2.8 (units (u nknown) date) unknown) (unknown) (no (unknown) (unknown) Glucose 85 (units (unk nown) date) unknown) (unknown) (no (unknown) (unknown) HCC (units (unkno wn) date) unknown) (unknown) (no (unknown) (unknown) HEENT:NC, Face (units (unknown) date) symmetric unknown) (unknown) (no (unknown) (unknown) Hct 47.4 (units (unkno wn) date) unknown) (unknown) (no (unknown) (unknown) He did have rapid (units (unknown) date) AFib on the date unknown) of admission that has not recurred.? 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 Blood and urine cultures are negative to (unknown) (no (unknown) (unknown) Interval history: (units (unknown) date) unknown) (unknown) (no (unknown) (unknown) [facility] (units (unknown) date) [address] unknown) [place] [address] (unknown) (no (unknown) (unknown) Laboratory (units (unk nown) date) Results - last 24 unknown) hr (unknown) (no (unknown) (unknown) Labs (units (unkno wn) date) unknown) (unknown) (no (unknown) (unknown) Labs: (units (unkno wn) date) unknown) (unknown) (no (unknown) (unknown) Likely home on (units (unknown) date) following unknown) liver biopsy. (unknown) (no (unknown) (unknown) Lymph # (Auto) (units (unknown) date) 600 L unknown) (unknown) (no (unknown) (unknown) Lymph % (Auto) (units (unknown) date) 8.5 L unknown) (unknown) (no (unknown) (unknown) MCH 30.5 (units (unkno wn) date) unknown) (unknown) (no (unknown) (unknown) MCHC 33.2 (units (unkn own) date) unknown) (unknown) (no (unknown) (unknown) MCV 91.7 (units (unkno wn) date) unknown) (unknown) (no (unknown) (unknown) Medical History (units (unknown) date) (Updated 06/17/22 unknown) @ 00:55 by JOSE Crystal) (unknown) (no (unknown) (unknown) Refugio # (Auto) (units ( unknown) date) 1000 H unknown) (unknown) (no (unknown) (unknown) [place]io % (Auto) (units ( unknown) date) 14.7 H unknown) (unknown) (no (unknown) (unknown) Mother (units (unknown) date) No problems noted. unknown) (unknown) (no (unknown) (unknown) NEURO: Alert and (units (unknown) date) oriented x 2, unknown) nonfocal (unknown) (no (unknown) (unknown) Narrative (units (unkn own) date) unknown) (unknown) (no (unknown) (unknown) Neut # (Auto) (units ( unknown) date) 5100 unknown) (unknown) (no (unknown) (unknown) Neut % (Auto) (units ( unknown) date) 75.5 H unknown) (unknown) (no (unknown) (unknown) Objective (units (unkn own) date) unknown) (unknown) (no (unknown) (unknown) Oxygen Delivery (units (unknown) date) Method Room Air unknown) (unknown) (no (unknown) (unknown) Oxygen Delivery (units (unknown) date) Method unknown) (unknown) (no (unknown) (unknown) Oxygen Flow Rate (units (unknown) date) 0 0 unknown) (unknown) (no (unknown) (unknown) Oxygen Flow Rate (units (unknown) date) 0 unknown) (unknown) (no (unknown) (unknown) PFSH (units (unkno wn) date) unknown) (unknown) (no (unknown) (unknown) PO, MNA 10 (at (units (unknown) date) risk for unknown) malnutrition), diet recall suggesting inadequate (unknown) (no (unknown) (unknown) Pacemaker (units (unkn own) date) unknown) (unknown) (no (unknown) (unknown) Patient appears (units (unknown) date) to have ongoing unknown) mild encephalopathy, but overall is improved.? (unknown) (no (unknown) (unknown) Patient has (units (un known) date) evidence of severe unknown) protein calorie malnutrition.? He has lost 30 lb (unknown) (no (unknown) (unknown) Patient: (units (unkno wn) date) Yoseph Cardoso unknown) MR#: [id number] (unknown) (no (unknown) (unknown) Phosphorus 3.1 (units (unknown) date) unknown) (unknown) (no (unknown) (unknown) Plt Count 176 (units ( unknown) date) unknown) (unknown) (no (unknown) (unknown) Potassium 4.1 (units ( unknown) date) unknown) (unknown) (no (unknown) (unknown) Progress Note (units ( unknown) date) unknown) (unknown) (no (unknown) (unknown) Prophylaxis (units (un known) date) unknown) (unknown) (no (unknown) (unknown) Provider: (units (unkn own) date) Tommy Wells unknown) D.O. (unknown) (no (unknown) (unknown) Pulse Oximetry 97 (units (unknown) date) 95 97 unknown) (unknown) (no (unknown) (unknown) Pulse Oximetry 98 (units (unknown) date) unknown) (unknown) (no (unknown) (unknown) Pulse Rate 79 97 (units (unknown) date) H unknown) (unknown) (no (unknown) (unknown) Pulse Rate 87 (units ( unknown) date) unknown) (unknown) (no (unknown) (unknown) Quality (units (unkno wn) date) unknown) (unknown) (no (unknown) (unknown) RBC 5.17 (units (unkno wn) date) unknown) (unknown) (no (unknown) (unknown) RDW 14.6 (units (unkno wn) date) unknown) (unknown) (no (unknown) (unknown) Respiratory Rate (units (unknown) date) 17 17 unknown) (unknown) (no (unknown) (unknown) Respiratory Rate (units (unknown) date) 17 unknown) (unknown) (no (unknown) (unknown) SKIN: warm and (units (unknown) date) dry, no rash unknown) (unknown) (no (unknown) (unknown) SaO2/FiO2 Ratio (units (unknown) date) 452 unknown) (unknown) (no (unknown) (unknown) Signed (units (unkno wn) date) By:<Electronically unknown) signed by Jaycee TiradoOTwin> (unknown) (no (unknown) (unknown) Smoking Status: (units (unknown) date) Never smoker unknown) (unknown) (no (unknown) (unknown) Social History (units (unknown) date) (Reviewed 06/16/22 unknown) @ 14:04 by Matt Swartz MD) (unknown) (no (unknown) (unknown) Sodium 135 L (units (u nknown) date) unknown) (unknown) (no (unknown) (unknown) Spoke with (units (unk nown) date) patient's unknown) derm/oncologist Dr. Reeder at who agreed with liver biopsy (unknown) (no (unknown) (unknown) Subjective (units (unk nown) date) unknown) (unknown) (no (unknown) (unknown) Surgical History (units (unknown) date) (Updated 06/16/22 unknown) @ 21:27 by Hawa Michael [facility]) (unknown) (no (unknown) (unknown) Temperature 97.1 (units (unknown) date) F L 97.3 F L unknown) (unknown) (no (unknown) (unknown) Temperature 97.1 (units (unknown) date) F L unknown) (unknown) (no (unknown) (unknown) Time Spent With (units (unknown) date) Patient unknown) (unknown) (no (unknown) (unknown) Total Bilirubin (units (unknown) date) 2.5 H unknown) (unknown) (no (unknown) (unknown) Total Protein 5.4 (units (unknown) date) L unknown) (unknown) (no (unknown) (unknown) VTE (units (unkno wn) date) unknown) (unknown) (no (unknown) (unknown) Vital Signs (units (un known) date) unknown) (unknown) (no (unknown) (unknown) WBC 6.7 (units (unkno wn) date) unknown) (unknown) (no (unknown) (unknown) [Embedded Image (units (unknown) date) Not Available] unknown) (unknown) (no (unknown) (unknown) ago.? He now has (units (unknown) date) multifocal lesions unknown) in the liver and spleen on imaging.? (unknown) (no (unknown) (unknown) alcohol intake: (units (unknown) date) current unknown) (unknown) (no (unknown) (unknown) and rec soft (units (u nknown) date) tissue neck CT and unknown) MRI brain. Unable to get MRI due to pacemaker. (unknown) (no (unknown) (unknown) date.? He is (units (u nknown) date) afebrile with a unknown) normal white blood cell count. Abx stopped. (unknown) (no (unknown) (unknown) decisions at this (units (unknown) date) point.? Will await unknown) further input from family. (unknown) (no (unknown) (unknown) fracture of rib (units (unknown) date) unknown) (unknown) (no (unknown) (unknown) her, has clinic (units (unknown) date) appt with patient unknown) on 06/28 (unknown) (no (unknown) (unknown) here is negative (units (unknown) date) thus far.?Zosyn unknown) stopped as above (unknown) (no (unknown) (unknown) household (units (unkn own) date) members: spouse unknown) (unknown) (no (unknown) (unknown) kcal/protein (units (u nknown) date) intake. unknown) (unknown) (no (unknown) (unknown) over the last few (units (unknown) date) months.?Keypuncher unknown) consulted. (unknown) (no (unknown) (unknown) today; this time (units (unknown) date) is exclusive of unknown) procedural time. Result panel 267 (unknown) (no date) (unknown) (unknown) (no value) (units 191 39-5 unknown) (unknown) (no date) (unknown) (unknown) (no value) (units 226 33-2 unknown) (unknown) (no date) (unknown) (unknown) (no value) (units 226 34-0 unknown) (unknown) (no date) (unknown) (unknown) (no value) (units 226 37-3 unknown) (unknown) (no date) (unknown) (unknown) (no value) (units 495 60-6 unknown) (unknown) (no date) (unknown) (unknown) (no value) (units 527 97-8 unknown) (unknown) (no date) (unknown) (unknown) (no value) (units (un known) unknown) (unknown) (no date) (unknown) (unknown) (no value) (units (un known) unknown) (unknown) (no date) (unknown) (unknown) (no value) (units (un known) unknown) (unknown) (no date) (unknown) (unknown) (no value) (units (un known) unknown) (unknown) (no date) (unknown) (unknown) (no value) (units (un known) unknown) (unknown) (no date) (unknown) (unknown) (no value) (units (un known) unknown) (unknown) (no date) (unknown) (unknown) Comment: (units 06393 -1 unknown) (unknown) (no date) (unknown) (unknown) Comment: (units (unkn own) unknown) Result panel 268 (unknown) (no (unknown) (unknown) (no value) (units (unk nown) date) unknown) (unknown) (no (unknown) (unknown) (past 8 hours): (units (unknown) date) unknown) (unknown) (no (unknown) (unknown) [id number] (units (unkno wn) date) unknown) (unknown) (no (unknown) (unknown) 06/20/22 05:35 (units (unknown) date) unknown) (unknown) (no (unknown) (unknown) 06/21/22 (units (unkno wn) date) unknown) (unknown) (no (unknown) (unknown) 08:00 (units (unkno wn) date) unknown) (unknown) (no (unknown) (unknown) 08:29 06/21/22 (units (unknown) date) unknown) (unknown) (no (unknown) (unknown) Age/Sex: 86 / M (units (unknown) date) unknown) (unknown) (no (unknown) (unknown) Assessment + Plan (units (unknown) date) unknown) (unknown) (no (unknown) (unknown) Asthma (units (unkno wn) date) unknown) (unknown) (no (unknown) (unknown) Atrial (units (unkno wn) date) fibrillation unknown) (unknown) (no (unknown) (unknown) Blood Pressure (units (unknown) date) 145/78 H unknown) (unknown) (no (unknown) (unknown) Chronic (units (unkno wn) date) anticoagulation unknown) (unknown) (no (unknown) (unknown) Critical Care (units ( unknown) date) time: unknown) (unknown) (no (unknown) (unknown) : 1935 (units (unknown) date) Acct:[id number] unknown) (unknown) (no (unknown) (unknown) Date Patient (units (u nknown) date) Seen: 06/20/22 unknown) (unknown) (no (unknown) (unknown) Date of Service: (units (unknown) date) 06/16/22 unknown) (unknown) (no (unknown) (unknown) Deep Vein (units (unkn own) date) Thrombosis/Pulmona unknown) ry Embolism Present on Admission: No (unknown) (no (unknown) (unknown) Essential (units (unkn own) date) hypertension unknown) (unknown) (no (unknown) (unknown) Exam (units (unkno wn) date) unknown) (unknown) (no (unknown) (unknown) Family History (units (unknown) date) (Reviewed 06/17/22 unknown) @ 00:47 by CASEY Crystal) (unknown) (no (unknown) (unknown) Father (units (unknown) date) Diabetes mellitus unknown) (unknown) (no (unknown) (unknown) Fraction of (units (un known) date) Inspired Oxygen 21 unknown) (unknown) (no (unknown) (unknown) History of (units (unk nown) date) melanoma unknown) (unknown) (no (unknown) (unknown) 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 (unknown) (no (unknown) (unknown) I spent a total (units (unknown) date) of [] minutes of unknown) critical care time on this patient's care (unknown) (no (unknown) (unknown) Interval history: (units (unknown) date) unknown) (unknown) (no (unknown) (unknown) [facility] (units (unknown) date) [address]) [place] [address] (unknown) (no (unknown) (unknown) Labs (units (unkno wn) date) unknown) (unknown) (no (unknown) (unknown) Medical History (units (unknown) date) (Updated 06/17/22 unknown) @ 00:55 by CASEY Crystal) (unknown) (no (unknown) (unknown) Mother (units (unknown) date) No problems noted. unknown) (unknown) (no (unknown) (unknown) Objective (units (unkn own) date) unknown) (unknown) (no (unknown) (unknown) Oxygen Delivery (units (unknown) date) Method Room Air unknown) (unknown) (no (unknown) (unknown) Oxygen Flow Rate (units (unknown) date) 0 unknown) (unknown) (no (unknown) (unknown) PFSH (units (unkno wn) date) unknown) (unknown) (no (unknown) (unknown) Pacemaker (units (unkn own) date) unknown) (unknown) (no (unknown) (unknown) Patient: (units (unkno wn) date) Yoseph Cardoso unknown) MR#: [id number] (unknown) (no (unknown) (unknown) Progress Note (units ( unknown) date) unknown) (unknown) (no (unknown) (unknown) Provider: (units (unkn own) date) Jim Syed unknown) D.O. (unknown) (no (unknown) (unknown) Pulse Oximetry 96 (units (unknown) date) 95 unknown) (unknown) (no (unknown) (unknown) Pulse Rate 84 85 (units (unknown) date) unknown) (unknown) (no (unknown) (unknown) Quality (units (unkno wn) date) unknown) (unknown) (no (unknown) (unknown) Respiratory Rate (units (unknown) date) 18 17 unknown) (unknown) (no (unknown) (unknown) SaO2/FiO2 Ratio (units (unknown) date) 452 unknown) (unknown) (no (unknown) (unknown) Signed By: (units (unk nown) date) unknown) (unknown) (no (unknown) (unknown) Smoking Status: (units (unknown) date) Never smoker unknown) (unknown) (no (unknown) (unknown) Social History (units (unknown) date) (Reviewed 06/16/22 unknown) @ 14:04 by Matt Swartz MD) (unknown) (no (unknown) (unknown) Spoke with (units (unk nown) date) patient's unknown) derm/oncologist Dr. Reeder at who agreed with liver biopsy (unknown) (no (unknown) (unknown) Subjective (units (unk nown) date) unknown) (unknown) (no (unknown) (unknown) Surgical History (units (unknown) date) (Updated 06/16/22 unknown) @ 21:27 by JOSE CrystalBC) (unknown) (no (unknown) (unknown) Temperature 97.1 (units (unknown) date) F L unknown) (unknown) (no (unknown) (unknown) Time Spent With (units (unknown) date) Patient unknown) (unknown) (no (unknown) (unknown) VTE (units (unkno wn) date) unknown) (unknown) (no (unknown) (unknown) Vital Signs (units (un known) date) unknown) (unknown) (no (unknown) (unknown) [Embedded Image (units (unknown) date) Not Available] unknown) (unknown) (no (unknown) (unknown) alcohol intake: (units (unknown) date) current unknown) (unknown) (no (unknown) (unknown) and rec soft (units (u nknown) date) tissue neck CT and unknown) MRI brain. Unable to get MRI due to pacemaker. (unknown) (no (unknown) (unknown) household (units (unkn own) date) members: spouse unknown) (unknown) (no (unknown) (unknown) today; this time (units (unknown) date) is exclusive of unknown) procedural time. Result panel 269 (unknown) (no date) (unknown) (unknown) (no value) (units (un known) unknown) (unknown) (no date) (unknown) (unknown) NO GROWTH (units (unk nown) AFTER 5 DAYS unknown) Result panel 270 (unknown) (no (unknown) (unknown) (no value) (units (unk nown) date) unknown) (unknown) (no (unknown) (unknown) (moderately low (units (unknown) date) for age), recent unknown) wt loss of 30 lbs, pt reporting decrease in (unknown) (no (unknown) (unknown) (past 8 hours): (units (unknown) date) unknown) (unknown) (no (unknown) (unknown) -CT guided liver (units (unknown) date) biopsy with IR unknown) ordered and will be completed on today 06/21, (unknown) (no (unknown) (unknown) -CT soft tissue (units (unknown) date) neck shows mass unknown) lesion behind left 1st rib with pathologic (unknown) (no (unknown) (unknown) -MRI brain (units (unkn own) date) unattainable due unknown) to pacemaker, Dr. 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 Arianna Reeder and updated (unknown) (no (unknown) (unknown) [id number] (units (unkno wn) date) unknown) (unknown) (no (unknown) (unknown) 06/20/22 05:35 (units (unknown) date) unknown) (unknown) (no (unknown) (unknown) 06/21/22 1352 (units ( unknown) date) unknown) (unknown) (no (unknown) (unknown) 06/21/22 (units (unkno wn) date) unknown) (unknown) (no (unknown) (unknown) 08:00 (units (unkno wn) date) unknown) (unknown) (no (unknown) (unknown) 08:29 06/21/22 (units (unknown) date) unknown) (unknown) (no (unknown) (unknown) 1. 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 Sepsis ruled (units (unknown) date) out unknown) (unknown) (no (unknown) (unknown) 3. UTI, treated (units (unknown) date) unknown) (unknown) (no (unknown) (unknown) 4. Acute (units (unkno wn) date) metabolic unknown) encephalopathy, improving (unknown) (no (unknown) (unknown) 5. Essential (units (u nknown) date) hypertension unknown) (unknown) (no (unknown) (unknown) 6. Atrial (units (unkn own) date) fibrillation unknown) (unknown) (no (unknown) (unknown) 7. Moderate (units (unk nown) date) protein calorie unknown) malnutrition r/t poor appetite x1 month aeb BMI 22.9 (unknown) (no (unknown) (unknown) ? 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 (unknown) (no (unknown) (unknown) Assessment + Plan (units (unknown) date) narrative: unknown) (unknown) (no (unknown) (unknown) Assessment + Plan (units (unknown) date) unknown) (unknown) (no (unknown) (unknown) Asthma (units (unkno wn) date) unknown) (unknown) (no (unknown) (unknown) Atrial (units (unkno wn) date) fibrillation unknown) (unknown) (no (unknown) (unknown) BP normotensive (units (unknown) date) today. Continue unknown) amlodipine. (unknown) (no (unknown) (unknown) Blood Pressure (units (unknown) date) 145/78 H unknown) (unknown) (no (unknown) (unknown) CHEST: (units (unkno wn) date) Respiratory unknown) excursions symmetric, CTAB (unknown) (no (unknown) (unknown) CV: irregularly (units (unknown) date) irregular, no unknown) M/R/G (unknown) (no (unknown) (unknown) Chronic (units (unkno wn) date) anticoagulation unknown) (unknown) (no (unknown) (unknown) Code status (units (un known) date) unknown) (unknown) (no (unknown) (unknown) Critical Care (units ( unknown) date) time: unknown) (unknown) (no (unknown) (unknown) : 1935 (units (unknown) date) Acct:[id number] unknown) (unknown) (no (unknown) (unknown) Date Patient (units (u nknown) date) Seen: 06/20/22 unknown) (unknown) (no (unknown) (unknown) Date of Service: (units (unknown) date) 06/16/22 unknown) (unknown) (no (unknown) (unknown) Deep Vein (units (unkn own) date) Thrombosis/Pulmona unknown) ry Embolism Present on Admission: No (unknown) (no (unknown) (unknown) [facility] (u nknown) date[facility] Urine culture (unknown) (no (unknown) (unknown) Disposition (units (un known) date) unknown) (unknown) (no (unknown) (unknown) EXTR: warm, well (units (unknown) date) perfused, no C/C/E unknown) (unknown) (no (unknown) (unknown) Eliquis for (units (un known) date) biopsy.? He is unknown) status post pacemaker. (unknown) (no (unknown) (unknown) Essential (units (unkn own) date) hypertension unknown) (unknown) (no (unknown) (unknown) Exam Narrative: (units (unknown) date) unknown) (unknown) (no (unknown) (unknown) Exam (units (unkno wn) date) unknown) (unknown) (no (unknown) (unknown) Family History (units (unknown) date) (Reviewed 06/17/22 unknown) @ 00:47 by JOSE Crystal) (unknown) (no (unknown) (unknown) Father (units (unknown) date) Diabetes mellitus unknown) (unknown) (no (unknown) (unknown) Fraction of (units (un known) date) Inspired Oxygen 21 unknown) (unknown) (no (unknown) (unknown) Full (units (unkno wn) date) unknown) (unknown) (no (unknown) (unknown) GEN:? Pleasant (units (unknown) date) elderly male, unknown) alert and oriented x 2, NAD, hard of hearing (unknown) (no (unknown) (unknown) HCC (units (unkno wn) date) unknown) (unknown) (no (unknown) (unknown) HEENT:NC, Face (units (unknown) date) symmetric unknown) (unknown) (no (unknown) (unknown) He did have rapid (units (unknown) date) AFib on the date unknown) of admission that has not recurred.? 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 Appreciate care (unknown) (no (unknown) (unknown) I spent a total (units (unknown) date) of [] minutes of unknown) critical care time on this patient's care (unknown) (no (unknown) (unknown) Initially on (units (u nknown) date) empiric Zosyn unknown) therapy.? Blood and urine cultures are negative to (unknown) (no (unknown) (unknown) Interval history: (units (unknown) date) unknown) (unknown) (no (unknown) (unknown) [facility] (units (unknown) date) [address] unknown) [place] [address] (unknown) (no (unknown) (unknown) Labs (units (unkno wn) date) unknown) (unknown) (no (unknown) (unknown) Medical History (units (unknown) date) (Updated 06/17/22 unknown) @ 00:55 by JOSE Crystal) (unknown) (no (unknown) (unknown) Mother (units (unknown) date) No problems noted. unknown) (unknown) (no (unknown) (unknown) NEURO: Alert and (units (unknown) date) oriented x 2, unknown) nonfocal (unknown) (no (unknown) (unknown) Narrative (units (unkn own) date) unknown) (unknown) (no (unknown) (unknown) Objective (units (unkn own) date) unknown) (unknown) (no (unknown) (unknown) Oxygen Delivery (units (unknown) date) Method Room Air unknown) (unknown) (no (unknown) (unknown) Oxygen Flow Rate (units (unknown) date) 0 unknown) (unknown) (no (unknown) (unknown) PFSH (units (unkno wn) date) unknown) (unknown) (no (unknown) (unknown) PO, MNA 10 (at (units (unknown) date) risk for unknown) malnutrition), diet recall suggesting inadequate (unknown) (no (unknown) (unknown) Pacemaker (units (unkn own) date) unknown) (unknown) (no (unknown) (unknown) Patient appears to (units (unknown) date) have ongoing mild unknown) encephalopathy, but overall is improved and (unknown) (no (unknown) (unknown) Patient has (units (un known) date) evidence of severe unknown) protein calorie malnutrition.? He has lost 30 lb (unknown) (no (unknown) (unknown) Patient with no (units (unknown) date) complaints today, unknown) a bit stronger, did better with PT again (unknown) (no (unknown) (unknown) Patient: (units (unkno wn) date) Yoseph Cardoso unknown) MR#: [id number] (unknown) (no (unknown) (unknown) Progress Note (units ( unknown) date) unknown) (unknown) (no (unknown) (unknown) Prophylaxis (units (un known) date) unknown) (unknown) (no (unknown) (unknown) Provider: (units (unkn own) date) Jim Syed unknown) D.O. (unknown) (no (unknown) (unknown) Pulse Oximetry 96 (units (unknown) date) 95 unknown) (unknown) (no (unknown) (unknown) Pulse Rate 84 85 (units (unknown) date) unknown) (unknown) (no (unknown) (unknown) Quality (units (unkno wn) date) unknown) (unknown) (no (unknown) (unknown) Respiratory Rate (units (unknown) date) 18 17 unknown) (unknown) (no (unknown) (unknown) SKIN: warm and (units (unknown) date) dry, no rash unknown) (unknown) (no (unknown) (unknown) SaO2/FiO2 Ratio (units (unknown) date) 452 unknown) (unknown) (no (unknown) (unknown) Signed (units (unkno wn) date) By:<Electronically unknown) signed by Jim Syed, JayceeO.> (unknown) (no (unknown) (unknown) Smoking Status: (units (unknown) date) Never smoker unknown) (unknown) (no (unknown) (unknown) Social History (units (unknown) date) (Reviewed 06/16/22 unknown) @ 14:04 by Matt Swartz MD) (unknown) (no (unknown) (unknown) Subjective (units (unk nown) date) unknown) (unknown) (no (unknown) (unknown) Surgical History (units (unknown) date) (Updated 06/16/22 unknown) @ 21:27 by Hawa Michael [facility]-) (unknown) (no (unknown) (unknown) Temperature 97.1 (units (unknown) date) F L unknown) (unknown) (no (unknown) (unknown) Time Spent With (units (unknown) date) Patient unknown) (unknown) (no (unknown) (unknown) VTE (units (unkno wn) date) unknown) (unknown) (no (unknown) (unknown) Vital Signs (units (un known) date) unknown) (unknown) (no (unknown) (unknown) [Embedded Image (units (unknown) date) Not Available] unknown) (unknown) (no (unknown) (unknown) ago.? He now has (units (unknown) date) multifocal lesions unknown) in the liver and spleen on imaging.? (unknown) (no (unknown) (unknown) alcohol intake: (units (unknown) date) current unknown) (unknown) (no (unknown) (unknown) biopsy today (units (u nknown) date) depending on unknown) progress with therapy. (unknown) (no (unknown) (unknown) continuing to (units ( unknown) date) improve each day. unknown) (unknown) (no (unknown) (unknown) date.? He is (units (u nknown) date) afebrile with a unknown) normal white blood cell count. Abx stopped. (unknown) (no (unknown) (unknown) fracture of rib (units (unknown) date) unknown) (unknown) (no (unknown) (unknown) her, has clinic (units (unknown) date) appt with patient unknown) on 06/28 (unknown) (no (unknown) (unknown) here is negative (units (unknown) date) thus far.?Zosyn unknown) stopped as above (unknown) (no (unknown) (unknown) household (units (unkn own) date) members: spouse unknown) (unknown) (no (unknown) (unknown) kcal/protein (units (u nknown) date) intake. unknown) (unknown) (no (unknown) (unknown) management (units (unk nown) date) assistance. unknown) (unknown) (no (unknown) (unknown) monitor afterward (units (unknown) date) here for unknown) complications, possible discharge to SNF tomorrow. (unknown) (no (unknown) (unknown) over the last few (units (unknown) date) months.?Keypuncher unknown) consulted. (unknown) (no (unknown) (unknown) today. Awaiting (units (unknown) date) liver biopsy. May unknown) discharge to SNF or home tomorrow after late (unknown) (no (unknown) (unknown) today; this time (units (unknown) date) is exclusive of unknown) procedural time. Result panel 271 (unknown) (no (unknown) (unknown) (no value) (units (unk nown) date) unknown) (unknown) (no (unknown) (unknown) (units (unknown) date) unknown) (unknown) (no (unknown) (unknown) Performed at: (units (unknown) date) 01 unknown) (unknown) (no (unknown) (unknown) . 01 (units (unkno wn) date) unknown) (unknown) (no (unknown) (unknown) . (units (unkno wn) date) unknown) (unknown) (no (unknown) (unknown) /DAVID 06/22/2022 (units (unknown) date) 0103 Local unknown) (unknown) (no (unknown) (unknown) 0.6 x 0.1 x 0.1 (units (unknown) date) cm to 1.9 x 0.1 x unknown) 0.1 cm submitted entirely in 1 (unknown) (no (unknown) (unknown) 1211 [facility] (units (unknown) date) unknown) (unknown) (no (unknown) (unknown) [address] [place] [address] (units (unknown) date) [address], unknown) [place], [place] [id number] (unknown) (no (unknown) (unknown) [id number] (units (unkno wn) date) unknown) (unknown) (no (unknown) (unknown) [place], [place] (units ( unknown) date) [id number] unknown) (unknown) (no (unknown) (unknown) As part of (units (unk nown) date) routine quality unknown) assurance, Dr. Toussaint has reviewed this case (unknown) (no (unknown) (unknown) C78.7 (units (unkno wn) date) unknown) (unknown) (no (unknown) (unknown) CPT . (units (unkno wn) date) unknown) (unknown) (no (unknown) (unknown) Collection Date: (units (unknown) date) 06/21/22 unknown) (unknown) (no (unknown) (unknown) Comment: (units (unkno wn) date) unknown) (unknown) (no (unknown) (unknown) DD/ (units (unknown) date) 0000 unknown) (unknown) (no (unknown) (unknown) Date of : (units (unknown) date) 1935 Admit unknown) Date: 06/16/22 (unknown) (no (unknown) (unknown) Diagnosis: (units (unk nown) date) unknown) (unknown) (no (unknown) (unknown) Dictated By: (units (u nknown) date) Tommy Molina MD unknown) (unknown) (no (unknown) (unknown) Electronically (units (unknown) date) signed: . unknown) (unknown) (no (unknown) (unknown) Gross (units (unkno wn) date) description: . unknown) (unknown) (no (unknown) (unknown) [facility] (units (unknown) date) unknown) (unknown) (no (unknown) (unknown) [facility] Accession (units ( unknown) date) Number: unknown) [id number] (unknown) (no (unknown) (unknown) LIVER TISSUE: (units ( unknown) date) unknown) (unknown) (no (unknown) (unknown) [facility] (units (unknown) date) [place] Cytology unknown) (unknown) (no (unknown) (unknown) Liver, Needle (units ( unknown) date) Core Biopsies: unknown) (unknown) (no (unknown) (unknown) MD Donovan Mckenzie (units (unknown) date) Phone: unknown) [phone] (unknown) (no (unknown) (unknown) (units (unknown) date) Dictating Dr: unknown) Tommy Molina MD (unknown) (no (unknown) (unknown) MRV 06/23/2022 (units (unknown) date) 1317 Local unknown) (unknown) (no (unknown) (unknown) Material (units (unkno wn) date) submitted: . unknown) (unknown) (no (unknown) (unknown) Tommy Szymanski (units (unkn own) date) MD Jesse, PhD, unknown) Pathologist (unknown) (no (unknown) (unknown) NPI- [id number] (units (unknown) date) unknown) (unknown) (no (unknown) (unknown) No. of (units (unkno wn) date) containers..01 unknown) Tissue (unknown) (no (unknown) (unknown) Ordering (units (unkno wn) date) Physician: unknown) Johnathan Lane MD (unknown) (no (unknown) (unknown) Pathologist (units (un known) date) provided ICD-10: unknown) (unknown) (no (unknown) (unknown) Pathology (units (unkn own) date) Diagnostic Report unknown) (unknown) (no (unknown) (unknown) Patient name: (units ( unknown) date) Yoseph Cardoso unknown) (unknown) (no (unknown) (unknown) Positive for (units (u nknown) date) malignancy, unknown) morphologically consistent with metastatic (unknown) (no (unknown) (unknown) Received in (units (un known) date) formalin are 4 unknown) fragment(s) of montoya, soft tissue measuring (unknown) (no (unknown) (unknown) Signed By: (units (unk nown) date) 06/23/22 183 unknown) (unknown) (no (unknown) (unknown) Signed (units (unkno wn) date) unknown) (unknown) (no (unknown) (unknown) TD/TT: 06/23/22 (units (unknown) date) 183 unknown) (unknown) (no (unknown) (unknown) The history of (units (unknown) date) melanoma is noted. unknown) Sections are of liver parenchyma (unknown) (no (unknown) (unknown) and agrees with (units (unknown) date) the diagnosis of unknown) metastatic melanoma. (unknown) (no (unknown) (unknown) cassette(s) (units (un known) date) unknown) (unknown) (no (unknown) (unknown) expanded by a (units ( unknown) date) proliferation of unknown) epithelioid cells in a nested and diffuse (unknown) (no (unknown) (unknown) features are (units (u nknown) date) consistent with unknown) metastatic melanoma. (unknown) (no (unknown) (unknown) growth pattern. (units (unknown) date) Melanin pigment is unknown) readily identified. The overall (unknown) (no (unknown) (unknown) liver - LIVER (units ( unknown) date) TISSUE unknown) (unknown) (no (unknown) (unknown) melanoma. (units (unkn own) date) unknown) Result panel 272 (unknown) (no date) (unknown) (unknown) 46.0 % (unkn own) (unknown) (no date) (unknown) (unknown) 46.0 % (unkn own) Result panel 273 (unknown) (no date) (unknown) (unknown) 15.7 g/dl (unkn own) (unknown) (no date) (unknown) (unknown) 15.7 g/dl (unkn own) Result panel 274 (unknown) (no date) (unknown) (unknown) (no value) (units (un known) unknown) (unknown) (no date) (unknown) (unknown) No cells or (units (u nknown) organisms seen unknown) (unknown) (no date) (unknown) (unknown) No cells or (units (u nknown) organisms seen unknown) Result panel 275 (unknown) (no date) (unknown) (unknown) (no value) (units (un known) unknown) (unknown) (no date) (unknown) (unknown) No cells or (units (u nknown) organisms seen unknown) (unknown) (no date) (unknown) (unknown) No cells or (units (u nknown) organisms seen unknown) Result panel 276 (unknown) (no (unknown) (unknown) (no value) (units (unk nown) date) unknown) (unknown) (no (unknown) (unknown) (past 8 hours): (units (unknown) date) unknown) (unknown) (no (unknown) (unknown) [id number] (units (unkno wn) date) unknown) (unknown) (no (unknown) (unknown) 06/16/22 15:35 (units (unknown) date) unknown) (unknown) (no (unknown) (unknown) 06/16/22 20:34 (units (unknown) date) unknown) (unknown) (no (unknown) (unknown) 06/16/22 20:35 (units (unknown) date) unknown) (unknown) (no (unknown) (unknown) 06/16/22 21:05 (units (unknown) date) unknown) (unknown) (no (unknown) (unknown) 06/17/22 01:19 (units (unknown) date) unknown) (unknown) (no (unknown) (unknown) 06/17/22 02:01 (units (unknown) date) unknown) (unknown) (no (unknown) (unknown) 06/20/22 05:35 (units (unknown) date) unknown) (unknown) (no (unknown) (unknown) 06/20/22 13:17 (units (unknown) date) unknown) (unknown) (no (unknown) (unknown) 06/21/22 17:50 (units (unknown) date) unknown) (unknown) (no (unknown) (unknown) 06/22/22 14:25 (units (unknown) date) unknown) (unknown) (no (unknown) (unknown) 17.6, INR 1.5, (units (unknown) date) PTT 38. Sodium unknown) 135, BUN 34, glucose 146, calcium 8.1, magnesium (unknown) (no (unknown) (unknown) 2.6, phosphorus (units (unknown) date) 4.1, bili 2.1, AST unknown) 61, ALT 63, alk-phos 428, total protein 5.8, (unknown) (no (unknown) (unknown) 20s. During admit (units (unknown) date) interview patient unknown) is pleasantly confused orientated to self (unknown) (no (unknown) (unknown) 300 mg PO BID (units ( unknown) date) unknown) (unknown) (no (unknown) (unknown) 44 mcg INHALATION (units (unknown) date) DAILY unknown) (unknown) (no (unknown) (unknown) 5 mg PO BID (units (un known) date) unknown) (unknown) (no (unknown) (unknown) 5 mg PO DAILY (units ( unknown) date) unknown) (unknown) (no (unknown) (unknown) 98% on room air. (units (unknown) date) Patient did get up unknown) and ambulate to the restroom w/MA without (unknown) (no (unknown) (unknown) Activity: As (units (u nknown) date) tolerated unknown) (unknown) (no (unknown) (unknown) Age/Sex: 86 / M (units (unknown) date) unknown) (unknown) (no (unknown) (unknown) Asthma (units (unkno wn) date) unknown) (unknown) (no (unknown) (unknown) Atrial (units (unkno wn) date) fibrillation unknown) (unknown) (no (unknown) (unknown) Chief complaint: (units (unknown) date) Pain near unknown) pacemaker (unknown) (no (unknown) (unknown) Chronic (units (unkno wn) date) anticoagulation unknown) (unknown) (no (unknown) (unknown) Comment: (units (unkno wn) date) Cachexia, liver unknown) biopsy, weakness (unknown) (no (unknown) (unknown) Comment: 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 unknown) (unknown) (no (unknown) (unknown) Comment: weakness (units (unknown) date) unknown) (unknown) (no (unknown) (unknown) Comment: (units (unkno wn) date) unknown) (unknown) (no (unknown) (unknown) Consult to (units (unk nown) date) Dietitian, Adult unknown) Routine (unknown) (no (unknown) (unknown) Consult to (units (unk nown) date) Discharge Planning unknown) Routine (unknown) (no (unknown) (unknown) Consult to Home (units (unknown) date) Health Routine unknown) (unknown) (no (unknown) (unknown) Consult to [employer] - (units (unknown) date) Medical Staff Manager unknown) Routine (unknown) (no (unknown) (unknown) Consult to (units (unk nown) date) Occupational unknown) Therapy Evaluate + Treat (unknown) (no (unknown) (unknown) Consult to (units (unk nown) date) Physical Therapy unknown) Evaluate + Treat (unknown) (no (unknown) (unknown) Consult to (units (unk nown) date) Physician Routine unknown) (unknown) (no (unknown) (unknown) Consult to Social (units (unknown) date) Services Routine unknown) (unknown) (no (unknown) (unknown) Consult to Speech (units (unknown) date) Therapy Evaluate + unknown) Treat (unknown) (no (unknown) (unknown) Consulting (units (unk nown) date) Provider: unknown) Aletha Turner (unknown) (no (unknown) (unknown) Consults: (units (unkn own) date) unknown) (unknown) (no (unknown) (unknown) Continued (units (unkn own) date) unknown) (unknown) (no (unknown) (unknown) : 1935 (units (unknown) date) Acct:[id number] unknown) (unknown) (no (unknown) (unknown) Date Patient (units (u nknown) date) Seen: 06/22/22 unknown) (unknown) (no (unknown) (unknown) Date of Service: (units (unknown) date) 06/16/22 unknown) (unknown) (no (unknown) (unknown) Date of (units (unkno wn) date) admission: unknown) (unknown) (no (unknown) (unknown) Deep Vein (units (unkn own) date) Thrombosis/Pulmona unknown) ry Embolism Present on Admission: No (unknown) (no (unknown) (unknown) Diet/Activity/Jaylen (units (unknown) date) atments unknown) (unknown) (no (unknown) (unknown) Diet: Diet as (units ( unknown) date) Tolerated unknown) (unknown) (no (unknown) (unknown) Discharge Data (units (unknown) date) unknown) (unknown) (no (unknown) (unknown) Discharge Date: (units (unknown) date) 06/22/22 unknown) (unknown) (no (unknown) (unknown) Discharge Plan (units (unknown) date) unknown) (unknown) (no (unknown) (unknown) Discharge (units (unkn own) date) Providers unknown) (unknown) (no (unknown) (unknown) Discharge Summary (units (unknown) date) unknown) (unknown) (no (unknown) (unknown) Discharge orders (units (unknown) date) + Medications unknown) (unknown) (no (unknown) (unknown) Discharge (units (unkn own) date) provider: unknown) (unknown) (no (unknown) (unknown) Yoseph Cardoso is (units (unknown) date) a 86-year-old male unknown) with a history of atrial fibrillation, with (unknown) (no (unknown) (unknown) Lucien G (units (unkn own) date) MD Edyta unknown) (unknown) (no (unknown) (unknown) Eliquis 5 mg (units (u nknown) date) tablet unknown) (unknown) (no (unknown) (unknown) End of Life/Goal (units (unknown) date) Care Dis unknown) (unknown) (no (unknown) (unknown) Essential (units (unkn own) date) hypertension unknown) (unknown) (no (unknown) (unknown) Exam (units (unkno wn) date) unknown) (unknown) (no (unknown) (unknown) Family History (units (unknown) date) (Reviewed 06/17/22 unknown) @ 00:47 by Hawa Michael [facility]) (unknown) (no (unknown) (unknown) Father (units (unknown) date) Diabetes mellitus unknown) (unknown) (no (unknown) (unknown) Follow (units (unkno wn) date) up/Referrals: unknown) (unknown) (no (unknown) (unknown) Fraction of (units (un known) date) Inspired Oxygen 21 unknown) (unknown) (no (unknown) (unknown) Has provider been (units (unknown) date) notified: No unknown) (unknown) (no (unknown) (unknown) Head CT negative. 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 (unknown) (no (unknown) (unknown) Inhale 2 puff (units ( unknown) date) using inhaler unknown) twice a day (unknown) (no (unknown) (unknown) [facility] (units (unknown) date) [address] unknown) [place] [address] (unknown) (no (unknown) (unknown) Labs (units (unkno wn) date) unknown) (unknown) (no (unknown) (unknown) Lucien Lan (units (unknown) date) MD Yudi [Primary unknown) Care Provider] (unknown) (no (unknown) (unknown) [employer] Consult (units (un known) date) needed for:: unknown) [facility] Need (unknown) (no (unknown) (unknown) Medical History (units (unknown) date) (Updated 06/17/22 unknown) @ 00:55 [facility] (unknown) (no (unknown) (unknown) Mother (units (unknown) date) No problems noted. unknown) (unknown) (no (unknown) (unknown) Narrative: (units (unk nown) date) unknown) (unknown) (no (unknown) (unknown) Objective (units (unkn own) date) unknown) (unknown) (no (unknown) (unknown) Oxygen Delivery (units (unknown) date) Method Room Air unknown) (unknown) (no (unknown) (unknown) Oxygen Flow Rate (units (unknown) date) 0 unknown) (unknown) (no (unknown) (unknown) PFSH (units (unkno wn) date) unknown) (unknown) (no (unknown) (unknown) Pacemaker (units (unkn own) date) unknown) (unknown) (no (unknown) (unknown) Patient Comments: (units (unknown) date) unknown) (unknown) (no (unknown) (unknown) Patient (units (unkno wn) date) Disposition: Home unknown) Health Service (unknown) (no (unknown) (unknown) Patient: (units (unkno wn) date) Yoseph Cardoso G unknown) MR#: [id number] (unknown) (no (unknown) (unknown) Per admitting (units ( unknown) date) provider, unknown) (unknown) (no (unknown) (unknown) Physician (units (unkn own) date) Instructions: unknown) Evaluate and Treat (unknown) (no (unknown) (unknown) Physician (units (unkn own) date) Instructions: unknown) Evaluate and treat (unknown) (no (unknown) (unknown) Prescriptions: (units (unknown) date) unknown) (unknown) (no (unknown) (unknown) Primary Care (units (u nknown) date) Provider: unknown) Lucien Lan (unknown) (no (unknown) (unknown) Primary care (units (u nknown) date) physician: unknown) (unknown) (no (unknown) (unknown) Provider (units (unkno wn) date) Discharge Comment: unknown) You were admitted to the hospital, found to have (unknown) (no (unknown) (unknown) Provider (units (unkno wn) date) unknown) (unknown) (no (unknown) (unknown) Provider: (units (unkn own) date) Jim Syed unknown) D.O. 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 for discharge home (unknown) (no (unknown) (unknown) Reason for (units (unk nown) date) consultation: unknown) multiple lesions of liver + spleen (unknown) (no (unknown) (unknown) Jim Syed, (units (unknown) date) DO unknown) (unknown) (no (unknown) (unknown) SaO2/FiO2 Ratio (units (unknown) date) 452 unknown) (unknown) (no (unknown) (unknown) Signed By: (units (unk nown) date) unknown) (unknown) (no (unknown) (unknown) Smoking Status: (units (unknown) date) Never smoker unknown) (unknown) (no (unknown) (unknown) Social History (units (unknown) date) (Reviewed 06/16/22 unknown) @ 14:04 by Matt Swartz MD) (unknown) (no (unknown) (unknown) Stand Alone (units (un known) date) Forms: Patient unknown) Portal/API, Stroke Signs + Symptoms (unknown) (no (unknown) (unknown) Surgical History (units (unknown) date) (Updated 06/16/22 unknown) @ 21:27 by Hawa Michael [facility]) (unknown) (no (unknown) (unknown) Upon admit BP (units (u nknown) date) 149/78, unknown) tachycardic heart rate 154, tachypneic R 29, O2 saturation (unknown) (no (unknown) (unknown) VTE (units (unkno wn) date) unknown) (unknown) (no (unknown) (unknown) Visit (units (unkno wn) date) Report/Discharge unknown) Packet (unknown) (no (unknown) (unknown) Vital Signs (units (un known) date) unknown) (unknown) (no (unknown) (unknown) [Embedded Image (units (unknown) date) Not Available] unknown) (unknown) (no (unknown) (unknown) a recent 30 lb (units (unknown) date) weight loss, and unknown) night sweats with a shuffling gait x6 weeks. He (unknown) (no (unknown) (unknown) albumin 3.1, CK (units (unknown) date) 53, initial unknown) troponin negative, BNP 1430. EKG atrial sensed (unknown) (no (unknown) (unknown) alcohol intake: (units (unknown) date) current unknown) (unknown) (no (unknown) (unknown) amlodipine 5 mg (units (unknown) date) tablet unknown) (unknown) (no (unknown) (unknown) and place, but a (units (unknown) date) very poor unknown) historian, stated that 'he came in today by himself (unknown) (no (unknown) (unknown) appears is no (units ( unknown) date) distress at this unknown) time, no apparent jaundice, right upper quadrant (unknown) (no (unknown) (unknown) because he had (units (unknown) date) black urine this unknown) morning'. He did not recall seeing Dr. Gillette, (unknown) (no (unknown) (unknown) biopsy. (units (unkno wn) date) unknown) (unknown) (no (unknown) (unknown) cardiology's (units (u nknown) date) office due to his unknown) significant presentation of cachexia, weakness, (unknown) (no (unknown) (unknown) demonstrated (units (u nknown) date) bibasilar unknown) infiltrates versus inflammatory pulmonary opacities mild (unknown) (no (unknown) (unknown) difficulty, (units (un known) date) struggles slightly unknown) with given directions. Patient has no WBC, but (unknown) (no (unknown) (unknown) fluticasone (units (un known) date) propionate unknown) [Flovent HFA] 44 mcg/actuation HFA aerosol inhaler (unknown) (no (unknown) (unknown) for mild sepsis, (units (unknown) date) transaminitis, unknown) UTI, encephalopathy. (unknown) (no (unknown) (unknown) gabapentin 300 mg (units (unknown) date) capsule unknown) (unknown) (no (unknown) (unknown) household (units (unkn own) date) members: spouse unknown) (unknown) (no (unknown) (unknown) left shiftneut (units (unknown) date) 8200, initial unknown) lactate 4.3, repeat 2.7, procalcitonin 3.27, PT (unknown) (no (unknown) (unknown) liver biopsy (units (un known) date) yesterday, follow unknown) up with your outside providers for results of the (unknown) (no (unknown) (unknown) malaise, balance (units (unknown) date) coordination unknown) issues, and concerns for neoplastic syndrome with (unknown) (no (unknown) (unknown) metastatic (units (unk nown) date) disease of unknown unknown) source at this time, possibly melanoma. You had a (unknown) (no (unknown) (unknown) obtain HPI, ROS, (units (unknown) date) or medication unknown) reconciliation. Patient denies any pain, and (unknown) (no (unknown) (unknown) pacemaker on (units (u nknown) date) Eliquis, HTN, and unknown) melanoma who was sent over from Dr. Gillette (unknown) (no (unknown) (unknown) pain, or fever. (units (unknown) date) unknown) (unknown) (no (unknown) (unknown) tachycardia with (units (unknown) date) heart rates unknown) 111-154, and tachypneic respiratory rate in the (unknown) (no (unknown) (unknown) to moderate right (units (unknown) date) greater than left unknown) pulmonary effusion. SOFA:2 patient admitted (unknown) (no (unknown) (unknown) unsure if this is (units (unknown) date) the patient's unknown) baseline. Due to cognitive impairment unable to (unknown) (no (unknown) (unknown) ventricular paced (units (unknown) date) rhythm rate 72, unknown) abnormal. COVID, influenza a/B/RSV negative. (unknown) (no (unknown) (unknown) was brought into (units (unknown) date) the ED by his unknown) . In ED patient demonstrated escalating Result panel 277 (unknown) (no date) (unknown) (unknown) (no value) (units (un known) unknown) (unknown) (no date) (unknown) (unknown) No cells or (units (u nknown) organisms seen unknown) (unknown) (no date) (unknown) (unknown) No cells or (units (u nknown) organisms seen unknown) (unknown) (no date) (unknown) (unknown) No growth. (units (un known) unknown) Result panel 278 (unknown) (no date) (unknown) (unknown) (no value) (units (un known) unknown) (unknown) (no date) (unknown) (unknown) No cells or (units (u nknown) organisms seen unknown) (unknown) (no date) (unknown) (unknown) No cells or (units (u nknown) organisms seen unknown) (unknown) (no date) (unknown) (unknown) No growth. (units (un known) unknown) Result panel 279 (unknown) (no (unknown) (unknown) (no value) (units (unk nown) date) unknown) (unknown) (no (unknown) (unknown) (moderately low (units (unknown) date) for age), recent unknown) wt loss of 30 lbs, pt reporting decrease in PO, (unknown) (no (unknown) (unknown) (past 8 hours): (units (unknown) date) unknown) (unknown) (no (unknown) (unknown) -CT guided liver (units (unknown) date) biopsy with IR unknown) ordered and will be completed on today 06/21, (unknown) (no (unknown) (unknown) -CT soft tissue (units (unknown) date) neck shows mass unknown) lesion behind left 1st rib with pathologic (unknown) (no (unknown) (unknown) -MRI brain (units (unkn own) date) unattainable due unknown) to pacemaker, Dr. 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 Arianna Reeder and updated (unknown) (no (unknown) (unknown) [id number] (units (unkno wn) date) unknown) (unknown) (no (unknown) (unknown) 06/16/22 15:35 (units (unknown) date) unknown) (unknown) (no (unknown) (unknown) 06/16/22 20:34 (units (unknown) date) unknown) (unknown) (no (unknown) (unknown) 06/16/22 20:35 (units (unknown) date) unknown) (unknown) (no (unknown) (unknown) 06/16/22 21:05 (units (unknown) date) unknown) (unknown) (no (unknown) (unknown) 06/17/22 01:19 (units (unknown) date) unknown) (unknown) (no (unknown) (unknown) 06/17/22 02:01 (units (unknown) date) unknown) (unknown) (no (unknown) (unknown) 06/20/22 05:35 (units (unknown) date) unknown) (unknown) (no (unknown) (unknown) 06/20/22 13:17 (units (unknown) date) unknown) (unknown) (no (unknown) (unknown) 06/21/22 17:50 (units (unknown) date) unknown) (unknown) (no (unknown) (unknown) 06/22/22 14:25 (units (unknown) date) unknown) (unknown) (no (unknown) (unknown) 1. 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 Sodium unknown) 135, BUN 34, glucose 146, calcium 8.1, magnesium (unknown) (no (unknown) (unknown) 2. Sepsis ruled (units (unknown) date) out unknown) (unknown) (no (unknown) (unknown) 2.6, phosphorus (units (unknown) date) 4.1, bili 2.1, AST unknown) 61, ALT 63, alk-phos 428, total protein 5.8, (unknown) (no (unknown) (unknown) 20s. During admit (units (unknown) date) interview patient unknown) is pleasantly confused orientated to self (unknown) (no (unknown) (unknown) 3. UTI, treated (units (unknown) date) unknown) (unknown) (no (unknown) (unknown) 300 mg PO BID (units ( unknown) date) unknown) (unknown) (no (unknown) (unknown) 4. Acute (units (unkno wn) date) metabolic unknown) encephalopathy, improving (unknown) (no (unknown) (unknown) 44 mcg INHALATION (units (unknown) date) DAILY unknown) (unknown) (no (unknown) (unknown) 5 mg PO BID (units (un known) date) unknown) (unknown) (no (unknown) (unknown) 5 mg PO DAILY (units ( unknown) date) unknown) (unknown) (no (unknown) (unknown) 5. Essential (units (u nknown) date) hypertension unknown) (unknown) (no (unknown) (unknown) 6. Atrial (units (unkn own) date) fibrillation unknown) (unknown) (no (unknown) (unknown) 7. Moderate (units (unk nown) date) protein calorie unknown) malnutrition r/t poor appetite x1 month aeb BMI 22.9 (unknown) (no (unknown) (unknown) 98% on room air. (units (unknown) date) Patient did get up unknown) and ambulate to the restroom w/MA without (unknown) (no (unknown) (unknown) Activity: As (units (u nknown) date) tolerated unknown) (unknown) (no (unknown) (unknown) Age/Sex: 86 / M (units (unknown) date) unknown) (unknown) (no (unknown) (unknown) Asthma (units (unkno wn) date) unknown) (unknown) (no (unknown) (unknown) Atrial (units (unkno wn) date) fibrillation unknown) (unknown) (no (unknown) (unknown) BP normotensive (units (unknown) date) today.? Continue unknown) amlodipine. (unknown) (no (unknown) (unknown) Chief complaint: (units (unknown) date) Pain near unknown) pacemaker (unknown) (no (unknown) (unknown) Chronic (units (unkno wn) date) anticoagulation unknown) (unknown) (no (unknown) (unknown) Comment: (units (unkno wn) date) Cachexia, liver unknown) biopsy, weakness (unknown) (no (unknown) (unknown) Comment: 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 unknown) (unknown) (no (unknown) (unknown) Comment: weakness (units (unknown) date) unknown) (unknown) (no (unknown) (unknown) Comment: (units (unkno wn) date) unknown) (unknown) (no (unknown) (unknown) Consult to (units (unk nown) date) Dietitian, Adult unknown) Routine (unknown) (no (unknown) (unknown) Consult to (units (unk nown) date) Discharge Planning unknown) Routine (unknown) (no (unknown) (unknown) Consult to Home (units (unknown) date) Health Routine unknown) (unknown) (no (unknown) (unknown) Consult to [employer] - (units (unknown) date) Medical Staff Manager unknown) Routine (unknown) (no (unknown) (unknown) Consult to (units (unk nown) date) Occupational unknown) Therapy Evaluate + Treat (unknown) (no (unknown) (unknown) Consult to (units (unk nown) date) Physical Therapy unknown) Evaluate + Treat (unknown) (no (unknown) (unknown) Consult to (units (unk nown) date) Physician Routine unknown) (unknown) (no (unknown) (unknown) Consult to Social (units (unknown) date) Services Routine unknown) (unknown) (no (unknown) (unknown) Consult to Speech (units (unknown) date) Therapy Evaluate + unknown) Treat (unknown) (no (unknown) (unknown) Consulting (units (unk nown) date) Provider: unknown) Aletha Turner (unknown) (no (unknown) (unknown) Consults: (units (unkn own) date) unknown) (unknown) (no (unknown) (unknown) Continued (units (unkn own) date) unknown) (unknown) (no (unknown) (unknown) : 1935 (units (unknown) date) Acct:[id number] unknown) (unknown) (no (unknown) (unknown) Date Patient (units (u nknown) date) Seen: 06/22/22 unknown) (unknown) (no (unknown) (unknown) Date of Service: (units (unknown) date) 06/16/22 unknown) (unknown) (no (unknown) (unknown) Date of (units (unkno wn) date) admission: unknown) (unknown) (no (unknown) (unknown) Deep Vein (units (unkn own) date) Thrombosis/Pulmona unknown) ry Embolism Present on Admission: No (unknown) (no (unknown) (unknown) Diagnosed at (units (u nknown) date) [facility] unknown) [facility] Emergency [facility].? Urine culture (unknown) (no (unknown) (unknown) Diet/Activity/Jaylen (units (unknown) date) atments unknown) (unknown) (no (unknown) (unknown) Diet: Diet as (units ( unknown) date) Tolerated unknown) (unknown) (no (unknown) (unknown) Discharge Data (units (unknown) date) unknown) (unknown) (no (unknown) (unknown) Discharge Date: (units (unknown) date) 06/22/22 unknown) (unknown) (no (unknown) (unknown) Discharge (units (unkn own) date) Diagnosis: unknown) (unknown) (no (unknown) (unknown) Discharge Plan (units (unknown) date) unknown) (unknown) (no (unknown) (unknown) Discharge (units (unkn own) date) Providers unknown) (unknown) (no (unknown) (unknown) Discharge Summary (units (unknown) date) unknown) (unknown) (no (unknown) (unknown) Discharge orders (units (unknown) date) + Medications unknown) (unknown) (no (unknown) (unknown) Discharge (units (unkn own) date) provider: unknown) (unknown) (no (unknown) (unknown) Yoseph Cardoso is (units (unknown) date) a 86-year-old male unknown) with a history of atrial fibrillation, with (unknown) (no (unknown) (unknown) Lucien G (units (unkn own) date) MD Edyta unknown) (unknown) (no (unknown) (unknown) Eliquis 5 mg (units (u nknown) date) tablet unknown) (unknown) (no (unknown) (unknown) Eliquis for (units (un known) date) biopsy.? He is unknown) status post pacemaker. (unknown) (no (unknown) (unknown) End of Life/Goal (units (unknown) date) Care Dis unknown) (unknown) (no (unknown) (unknown) Essential (units (unkn own) date) hypertension unknown) (unknown) (no (unknown) (unknown) Exam (units (unkno wn) date) unknown) (unknown) (no (unknown) (unknown) Family History (units (unknown) date) (Reviewed 06/17/22 unknown) @ 00:47 by Hawa Michael [facility]) (unknown) (no (unknown) (unknown) Father (units (unknown) date) Diabetes mellitus unknown) (unknown) (no (unknown) (unknown) Follow (units (unkno wn) date) up/Referrals: unknown) (unknown) (no (unknown) (unknown) Fraction of (units (un known) date) Inspired Oxygen 21 unknown) (unknown) (no (unknown) (unknown) HCC (units (unkno wn) date) unknown) (unknown) (no (unknown) (unknown) Has provider been (units (unknown) date) notified: No unknown) (unknown) (no (unknown) (unknown) He did have rapid (units (unknown) date) AFib on the date unknown) of admission that has not recurred.? Holding (unknown) (no (unknown) (unknown) Head CT negative. 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 Blood and urine cultures are negative to (unknown) (no (unknown) (unknown) [facility] (units (unknown) date) [address] [place] [address] unknown) [place] [address] (unknown) (no (unknown) (unknown) Labs (units (unkno wn) date) unknown) (unknown) (no (unknown) (unknown) Lucien Lan (units (unknown) date) MD Yudi [Primary unknown) Care Provider] (unknown) (no (unknown) (unknown) MNA 10 (at risk (units (unknown) date) for malnutrition), unknown) diet recall suggesting inadequate (unknown) (no (unknown) (unknown) POWDER EXPERT Consult (units (un known) date) needed for:: unknown) [facility] Need (unknown) (no (unknown) (unknown) Medical History (units (unknown) date) (Updated 06/17/22 unknown) @ 00:55 by CASEY Crystal) (unknown) (no (unknown) (unknown) Mother (units (unknown) date) No problems noted. unknown) (unknown) (no (unknown) (unknown) Narrative: (units (unk nown) date) unknown) (unknown) (no (unknown) (unknown) Objective (units (unkn own) date) unknown) (unknown) (no (unknown) (unknown) Oxygen Delivery (units (unknown) date) Method Room Air unknown) (unknown) (no (unknown) (unknown) Oxygen Flow Rate (units (unknown) date) 0 unknown) (unknown) (no (unknown) (unknown) PFSH (units (unkno wn) date) unknown) (unknown) (no (unknown) (unknown) Pacemaker (units (unkn own) date) unknown) (unknown) (no (unknown) (unknown) Patient Comments: (units (unknown) date) unknown) (unknown) (no (unknown) (unknown) Patient (units (unkno wn) date) Disposition: Home unknown) Health Service (unknown) (no (unknown) (unknown) Patient appears to (units (unknown) date) have ongoing mild unknown) encephalopathy, but overall is improved and (unknown) (no (unknown) (unknown) Patient has (units (un known) date) evidence of severe unknown) protein calorie malnutrition.? He has lost 30 lb (unknown) (no (unknown) (unknown) Patient: (units (unkno wn) date) Yoseph Cardoso unknown) MR#: [id number] (unknown) (no (unknown) (unknown) Per admitting (units ( unknown) date) provider, unknown) (unknown) (no (unknown) (unknown) Physician (units (unkn own) date) Instructions: unknown) Evaluate and Treat (unknown) (no (unknown) (unknown) Physician (units (unkn own) date) Instructions: unknown) Evaluate and treat (unknown) (no (unknown) (unknown) Prescriptions: (units (unknown) date) unknown) (unknown) (no (unknown) (unknown) Primary Care (units (u nknown) date) Provider: unknown) Lucien Lan (unknown) (no (unknown) (unknown) Primary care (units (u nknown) date) physician: unknown) (unknown) (no (unknown) (unknown) Provider (units (unkno wn) date) Discharge Comment: unknown) You were admitted to the hospital, found to have (unknown) (no (unknown) (unknown) Provider (units (unkno wn) date) unknown) (unknown) (no (unknown) (unknown) Provider: (units (unkn own) date) Jim Syed unknown) D.O. 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 for discharge home (unknown) (no (unknown) (unknown) Reason for (units (unk nown) date) consultation: unknown) multiple lesions of liver + spleen (unknown) (no (unknown) (unknown) Jim Syed, (units (unknown) date) DO unknown) (unknown) (no (unknown) (unknown) SaO2/FiO2 Ratio (units (unknown) date) 452 unknown) (unknown) (no (unknown) (unknown) Signed By: (units (unk nown) date) unknown) (unknown) (no (unknown) (unknown) Smoking Status: (units (unknown) date) Never smoker unknown) (unknown) (no (unknown) (unknown) Social History (units (unknown) date) (Reviewed 06/16/22 unknown) @ 14:04 by Matt Swartz MD) (unknown) (no (unknown) (unknown) Stand Alone (units (un known) date) Forms: Patient unknown) Portal/API, Stroke Signs + Symptoms (unknown) (no (unknown) (unknown) Summary (units (unkno wn) date) unknown) (unknown) (no (unknown) (unknown) Surgical History (units (unknown) date) (Updated 06/16/22 unknown) @ 21:27 by JOSE Crystal) (unknown) (no (unknown) (unknown) Upon admit BP (units (u nknown) date) 149/78, unknown) tachycardic heart rate 154, tachypneic R 29, O2 saturation (unknown) (no (unknown) (unknown) VTE (units (unkno wn) date) unknown) (unknown) (no (unknown) (unknown) Visit (units (unkno wn) date) Report/Discharge unknown) Packet (unknown) (no (unknown) (unknown) Vital Signs (units (un known) date) unknown) (unknown) (no (unknown) (unknown) [Embedded Image (units (unknown) date) Not Available] unknown) (unknown) (no (unknown) (unknown) a recent 30 lb (units (unknown) date) weight loss, and unknown) night sweats with a shuffling gait x6 weeks. He (unknown) (no (unknown) (unknown) ago.? He now has (units (unknown) date) multifocal lesions unknown) in the liver and spleen on imaging.? Alth (unknown) (no (unknown) (unknown) albumin 3.1, CK (units (unknown) date) 53, initial unknown) troponin negative, BNP 1430. EKG atrial sensed (unknown) (no (unknown) (unknown) alcohol intake: (units (unknown) date) current unknown) (unknown) (no (unknown) (unknown) amlodipine 5 mg (units (unknown) date) tablet unknown) (unknown) (no (unknown) (unknown) and place, but a (units (unknown) date) very poor unknown) historian, stated that 'he came in today by himself (unknown) (no (unknown) (unknown) appears is no (units ( unknown) date) distress at this unknown) time, no apparent jaundice, right upper quadrant (unknown) (no (unknown) (unknown) because he had (units (unknown) date) black urine this unknown) morning'. He did not recall seeing Dr. Gillette, (unknown) (no (unknown) (unknown) biopsy. (units (unkno wn) date) unknown) (unknown) (no (unknown) (unknown) cardiology's (units (u nknown) date) office due to his unknown) significant presentation of cachexia, weakness, (unknown) (no (unknown) (unknown) continuing to (units ( unknown) date) improve each day. unknown) (unknown) (no (unknown) (unknown) date.? He is (units (u nknown) date) afebrile with a unknown) normal white blood cell count. Abx stopped. (unknown) (no (unknown) (unknown) demonstrated (units (u nknown) date) bibasilar unknown) infiltrates versus inflammatory pulmonary opacities mild (unknown) (no (unknown) (unknown) difficulty, (units (un known) date) struggles slightly unknown) with given directions. Patient has no WBC, but (unknown) (no (unknown) (unknown) fluticasone (units (un known) date) propionate unknown) [Flovent HFA] 44 mcg/actuation HFA aerosol inhaler (unknown) (no (unknown) (unknown) for mild sepsis, (units (unknown) date) transaminitis, unknown) UTI, encephalopathy. (unknown) (no (unknown) (unknown) fracture of rib (units (unknown) date) unknown) (unknown) (no (unknown) (unknown) gabapentin 300 mg (units (unknown) date) capsule unknown) (unknown) (no (unknown) (unknown) her, has clinic (units (unknown) date) appt with patient unknown) on 06/28 (unknown) (no (unknown) (unknown) here is negative (units (unknown) date) thus far.?Zosyn unknown) stopped as above (unknown) (no (unknown) (unknown) household (units (unkn own) date) members: spouse unknown) (unknown) (no (unknown) (unknown) kcal/protein (units (u nknown) date) intake. 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 You had a (unknown) (no (unknown) (unknown) monitor afterward (units (unknown) date) here for unknown) complications, possible discharge to SNF tomorrow. (unknown) (no (unknown) (unknown) obtain HPI, ROS, (units (unknown) date) or medication unknown) reconciliation. 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 (unknown) (no (unknown) (unknown) over the last few (units (unknown) date) months.?Keypuncher unknown) consulted. 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 Gilltete (unknown) (no (unknown) (unknown) pain, or fever. (units (unknown) date) unknown) (unknown) (no (unknown) (unknown) tachycardia with (units (unknown) date) heart rates unknown) 111-154, and tachypneic respiratory rate in the (unknown) (no (unknown) (unknown) to moderate right (units (unknown) date) greater than left unknown) pulmonary effusion. SOFA:2 patient admitted (unknown) (no (unknown) (unknown) unsure if this is (units (unknown) date) the patient's unknown) baseline. Due to cognitive impairment unable to (unknown) (no (unknown) (unknown) ventricular paced (units (unknown) date) rhythm rate 72, unknown) abnormal. COVID, influenza a/B/RSV negative. (unknown) (no (unknown) (unknown) was brought into (units (unknown) date) the ED by his unknown) . In ED patient demonstrated escalating Result panel 280 (unknown) (no (unknown) (unknown) (no value) (units (unk nown) date) unknown) (unknown) (no (unknown) (unknown) (moderately low (units (unknown) date) for age), recent unknown) wt loss of 30 lbs, pt reporting decrease in PO, (unknown) (no (unknown) (unknown) (past 8 hours): (units (unknown) date) unknown) (unknown) (no (unknown) (unknown) [id number] (units (unkno wn) date) unknown) (unknown) (no (unknown) (unknown) 06/16/22 15:35 (units (unknown) date) unknown) (unknown) (no (unknown) (unknown) 06/16/22 20:34 (units (unknown) date) unknown) (unknown) (no (unknown) (unknown) 06/16/22 20:35 (units (unknown) date) unknown) (unknown) (no (unknown) (unknown) 06/16/22 21:05 (units (unknown) date) unknown) (unknown) (no (unknown) (unknown) 06/17/22 01:19 (units (unknown) date) unknown) (unknown) (no (unknown) (unknown) 06/17/22 02:01 (units (unknown) date) unknown) (unknown) (no (unknown) (unknown) 06/20/22 05:35 (units (unknown) date) unknown) (unknown) (no (unknown) (unknown) 06/20/22 13:17 (units (unknown) date) unknown) (unknown) (no (unknown) (unknown) 06/21/22 17:50 (units (unknown) date) unknown) (unknown) (no (unknown) (unknown) 06/22/22 14:25 (units (unknown) date) unknown) (unknown) (no (unknown) (unknown) 1. 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 Sodium unknown) 135, BUN 34, glucose 146, calcium 8.1, magnesium (unknown) (no (unknown) (unknown) 2. Sepsis ruled (units (unknown) date) out unknown) (unknown) (no (unknown) (unknown) 2.6, phosphorus (units (unknown) date) 4.1, bili 2.1, AST unknown) 61, ALT 63, alk-phos 428, total protein 5.8, (unknown) (no (unknown) (unknown) 20s. During admit (units (unknown) date) interview patient unknown) is pleasantly confused orientated to self (unknown) (no (unknown) (unknown) 3. UTI, treated (units (unknown) date) unknown) (unknown) (no (unknown) (unknown) 300 mg PO BID (units ( unknown) date) unknown) (unknown) (no (unknown) (unknown) 4. Acute (units (unkno wn) date) metabolic unknown) encephalopathy, improving (unknown) (no (unknown) (unknown) 44 mcg INHALATION (units (unknown) date) DAILY unknown) (unknown) (no (unknown) (unknown) 5 mg PO BID (units (un known) date) unknown) (unknown) (no (unknown) (unknown) 5 mg PO DAILY (units ( unknown) date) unknown) (unknown) (no (unknown) (unknown) 5. Essential (units (u nknown) date) hypertension unknown) (unknown) (no (unknown) (unknown) 6. Atrial (units (unkn own) date) fibrillation, unknown) (unknown) (no (unknown) (unknown) 7. Moderate (units (unk nown) date) protein calorie unknown) malnutrition r/t poor appetite x1 month aeb BMI 22.9 (unknown) (no (unknown) (unknown) 98% on room air. (units (unknown) date) Patient did get up unknown) and ambulate to the restroom w/MA without (unknown) (no (unknown) (unknown) ABD: Soft, NT/ND, (units (unknown) date) BT present in all unknown) 4 quadrants, no organomegaly or masses (unknown) (no (unknown) (unknown) Activity: As (units (u nknown) date) tolerated unknown) (unknown) (no (unknown) (unknown) Age/Sex: 86 / M (units (unknown) date) unknown) (unknown) (no (unknown) (unknown) Asthma (units (unkno wn) date) unknown) (unknown) (no (unknown) (unknown) Atrial (units (unkno wn) date) fibrillation unknown) (unknown) (no (unknown) (unknown) Biopsy results (units (unknown) date) unknown) (unknown) (no (unknown) (unknown) CHEST: (units (unkno wn) date) Respiratory unknown) excursions symmetric, CTAB (unknown) (no (unknown) (unknown) CV: irregularly (units (unknown) date) irregular, no unknown) M/R/G (unknown) (no (unknown) (unknown) Chief complaint: (units (unknown) date) Pain near unknown) pacemaker (unknown) (no (unknown) (unknown) Chronic (units (unkno wn) date) anticoagulation unknown) (unknown) (no (unknown) (unknown) Comment: (units (unkno wn) date) Cachexia, liver unknown) biopsy, weakness (unknown) (no (unknown) (unknown) Comment: 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 unknown) (unknown) (no (unknown) (unknown) Comment: weakness (units (unknown) date) unknown) (unknown) (no (unknown) (unknown) Comment: (units (unkno wn) date) unknown) (unknown) (no (unknown) (unknown) Consult to (units (unk nown) date) Dietitian, Adult unknown) Routine (unknown) (no (unknown) (unknown) Consult to (units (unk nown) date) Discharge Planning unknown) Routine (unknown) (no (unknown) (unknown) Consult to Home (units (unknown) date) Health Routine unknown) (unknown) (no (unknown) (unknown) Consult to [employer] - (units (unknown) date) Medical Staff Manager unknown) Routine (unknown) (no (unknown) (unknown) Consult to (units (unk nown) date) Occupational unknown) Therapy Evaluate + Treat (unknown) (no (unknown) (unknown) Consult to (units (unk nown) date) Physical Therapy unknown) Evaluate + Treat (unknown) (no (unknown) (unknown) Consult to (units (unk nown) date) Physician Routine unknown) (unknown) (no (unknown) (unknown) Consult to Social (units (unknown) date) Services Routine unknown) (unknown) (no (unknown) (unknown) Consult to Speech (units (unknown) date) Therapy Evaluate + unknown) Treat (unknown) (no (unknown) (unknown) Consulting (units (unk nown) date) Provider: unknown) Aletha Turner (unknown) (no (unknown) (unknown) Consults: (units (unkn own) date) unknown) (unknown) (no (unknown) (unknown) Continued (units (unkn own) date) unknown) (unknown) (no (unknown) (unknown) : 1935 (units (unknown) date) Acct:[id number] unknown) (unknown) (no (unknown) (unknown) Date Patient (units (u nknown) date) Seen: 06/22/22 unknown) (unknown) (no (unknown) (unknown) Date of Service: (units (unknown) date) 06/16/22 unknown) (unknown) (no (unknown) (unknown) Date of (units (unkno wn) date) admission: unknown) (unknown) (no (unknown) (unknown) Deep Vein (units (unkn own) date) Thrombosis/Pulmona unknown) ry Embolism Present on Admission: No (unknown) (no (unknown) (unknown) Diet/Activity/Jaylen (units (unknown) date) atments unknown) (unknown) (no (unknown) (unknown) Diet: Diet as (units ( unknown) date) Tolerated unknown) (unknown) (no (unknown) (unknown) Discharge Data (units (unknown) date) unknown) (unknown) (no (unknown) (unknown) Discharge Date: (units (unknown) date) 06/22/22 unknown) (unknown) (no (unknown) (unknown) Discharge (units (unkn own) date) Diagnosis: unknown) (unknown) (no (unknown) (unknown) Discharge Plan (units (unknown) date) unknown) (unknown) (no (unknown) (unknown) Discharge (units (unkn own) date) Providers unknown) (unknown) (no (unknown) (unknown) Discharge Summary (units (unknown) date) unknown) (unknown) (no (unknown) (unknown) Discharge orders (units (unknown) date) + Medications unknown) (unknown) (no (unknown) (unknown) Discharge (units (unkn own) date) provider: unknown) (unknown) (no (unknown) (unknown) Yoseph Cardoso is (units (unknown) date) a 86-year-old male unknown) with a history of atrial fibrillation, with (unknown) (no (unknown) (unknown) Lucien G (units (unkn own) date) MD Edyta unknown) (unknown) (no (unknown) (unknown) EXTR: warm, well (units (unknown) date) perfused, no C/C/E unknown) (unknown) (no (unknown) (unknown) Eliquis 5 mg (units (u nknown) date) tablet unknown) (unknown) (no (unknown) (unknown) End of Life/Goal (units (unknown) date) Care Dis unknown) (unknown) (no (unknown) (unknown) Essential (units (unkn own) date) hypertension unknown) (unknown) (no (unknown) (unknown) Exam Narrative: (units (unknown) date) unknown) (unknown) (no (unknown) (unknown) Exam (units (unkno wn) date) unknown) (unknown) (no (unknown) (unknown) Family History (units (unknown) date) (Reviewed 06/17/22 unknown) @ 00:47 [facility]) (unknown) (no (unknown) (unknown) Father (units (unknown) date) Diabetes mellitus unknown) (unknown) (no (unknown) (unknown) Follow (units (unkno wn) date) up/Referrals: unknown) (unknown) (no (unknown) (unknown) Fraction of (units (un known) date) Inspired Oxygen 21 unknown) (unknown) (no (unknown) (unknown) GEN:? Pleasant (units (unknown) date) elderly male, unknown) alert and oriented x 2, NAD, hard of hearing (unknown) (no (unknown) (unknown) HCC (units (unkno wn) date) unknown) (unknown) (no (unknown) (unknown) HEENT:NC, Face (units (unknown) date) symmetric unknown) (unknown) (no (unknown) (unknown) Has provider been (units (unknown) date) notified: No unknown) (unknown) (no (unknown) (unknown) Head CT negative. 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 (unknown) (no (unknown) (unknown) Hospital Course (units (unknown) date) unknown) (unknown) (no (unknown) (unknown) Hospital Course: (units (unknown) date) unknown) (unknown) (no (unknown) (unknown) Inhale 2 puff (units ( unknown) date) using inhaler unknown) twice a day (unknown) (no (unknown) (unknown) [facility] (units (unknown) date) [address] unknown) [place] [address] (unknown) (no (unknown) (unknown) Labs (units (unkno wn) date) unknown) (unknown) (no (unknown) (unknown) Lucien Lan (units (unknown) date) MD Yudi [Primary unknown) Care Provider] (unknown) (no (unknown) (unknown) MNA 10 (at risk (units (unknown) date) for malnutrition), unknown) diet recall suggesting inadequate (unknown) (no (unknown) (unknown) 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 unknown) (unknown) (no (unknown) (unknown) NEURO: Alert and (units (unknown) date) oriented x 2, unknown) nonfocal (unknown) (no (unknown) (unknown) Narrative (units (unkn own) date) unknown) (unknown) (no (unknown) (unknown) Narrative: (units (unk nown) date) unknown) (unknown) (no (unknown) (unknown) Objective (units (unkn own) date) unknown) (unknown) (no (unknown) (unknown) On admission he (units (unknown) date) was noted to have unknown) rapid afib that resolved quickly and did not (unknown) (no (unknown) (unknown) Oxygen Delivery (units (unknown) date) Method Room Air unknown) (unknown) (no (unknown) (unknown) Oxygen Flow Rate (units (unknown) date) 0 unknown) (unknown) (no (unknown) (unknown) PFSH (units (unkno wn) date) unknown) (unknown) (no (unknown) (unknown) Pacemaker (units (unkn own) date) unknown) (unknown) (no (unknown) (unknown) Patient Comments: (units (unknown) date) unknown) (unknown) (no (unknown) (unknown) Patient (units (unkno wn) date) Disposition: Home unknown) Health Service (unknown) (no (unknown) (unknown) Patient: (units (o wn) date) Yoseph Cardoso unknown) MR#: [id number] (unknown) (no (unknown) (unknown) Per admitting (units ( unknown) date) provider, unknown) (unknown) (no (unknown) (unknown) Physician (units (unkn own) date) Instructions: unknown) Evaluate and Treat (unknown) (no (unknown) (unknown) Physician (units (unkn own) date) Instructions: unknown) Evaluate and treat (unknown) (no (unknown) (unknown) Prescriptions: (units (unknown) date) unknown) (unknown) (no (unknown) (unknown) Primary Care (units (u nknown) date) Provider: unknown) EdytaLucien Bagley (unknown) (no (unknown) (unknown) Primary care (units (u nkn) date) physician: unknown) (unknown) (no (unknown) (unknown) Provider (units (o wn) date) Discharge Comment: unknown) You were admitted to the hospital, found to have (unknown) (no (unknown) (unknown) Provider (units (o wn) date) unknown) (unknown) (no (unknown) (unknown) Provider: (units ( own) date) Jim Syed unknown) D.O. 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 for discharge home (unknown) (no (unknown) (unknown) Reason for (units (unk nown) date) consultation: unknown) multiple lesions of liver + spleen (unknown) (no (unknown) (unknown) Jim Syed, (units (unknown) date) DO unknown) (unknown) (no (unknown) (unknown) SKIN: warm and (units (unknown) date) dry, no rash unknown) (unknown) (no (unknown) (unknown) SaO2/FiO2 Ratio (units (unknown) date) 452 unknown) (unknown) (no (unknown) (unknown) Signed By: (units (unk nown) date) unknown) (unknown) (no (unknown) (unknown) Smoking Status: (units (unknown) date) Never smoker unknown) (unknown) (no (unknown) (unknown) Social History (units (unknown) date) (Reviewed 06/16/22 unknown) @ 14:04 by Matt Swartz MD) (unknown) (no (unknown) (unknown) Stand Alone (units (un known) date) Forms: Patient unknown) Portal/API, Stroke Signs + Symptoms (unknown) (no (unknown) (unknown) Summary (units (unkno wn) date) unknown) (unknown) (no (unknown) (unknown) Surgical History (units (unknown) date) (Updated 06/16/22 unknown) @ 21:27 by Hawa Michael [facility]) (unknown) (no (unknown) (unknown) This is an 86 (units ( unknown) date) year old male unknown) admitted with 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 (unknown) (no (unknown) (unknown) Time Spent with (units (unknown) date) Patient unknown) (unknown) (no (unknown) (unknown) Time spent: (units (un known) date) Greater than 30 unknown) minutes (unknown) (no (unknown) (unknown) Upon admit BP (units (u nknown) date) 149/78, unknown) tachycardic heart rate 154, tachypneic R 29, O2 saturation (unknown) (no (unknown) (unknown) VTE (units (unkno wn) date) unknown) (unknown) (no (unknown) (unknown) Visit (units (unkno wn) date) Report/Discharge unknown) Packet (unknown) (no (unknown) (unknown) Vital Signs (units (un known) date) unknown) (unknown) (no (unknown) (unknown) [Embedded Image (units (unknown) date) Not Available] unknown) (unknown) (no (unknown) (unknown) a recent 30 lb (units (unknown) date) weight loss, and unknown) night sweats with a shuffling gait x6 weeks. He (unknown) (no (unknown) (unknown) albumin 3.1, CK (units (unknown) date) 53, initial unknown) troponin negative, BNP 1430. EKG atrial sensed (unknown) (no (unknown) (unknown) alcohol intake: (units (unknown) date) current unknown) (unknown) (no (unknown) (unknown) amlodipine 5 mg (units (unknown) date) tablet unknown) (unknown) (no (unknown) (unknown) and place, but a (units (unknown) date) very poor unknown) historian, stated that 'he came in today by himself (unknown) (no (unknown) (unknown) appears is no (units ( unknown) date) distress at this unknown) time, no apparent jaundice, right upper quadrant (unknown) (no (unknown) (unknown) because he had (units (unknown) date) black urine this unknown) morning'. He did not recall seeing Dr. Gillette, (unknown) (no (unknown) (unknown) biopsy. (units (unkno wn) date) unknown) (unknown) (no (unknown) (unknown) cardiology's (units (u nknown) date) office due to his unknown) significant presentation of cachexia, weakness, (unknown) (no (unknown) (unknown) complexity of his (units (unknown) date) case and increased unknown) the duration of his stay. He continued to (unknown) (no (unknown) (unknown) demonstrated (units (u nknown) date) bibasilar unknown) infiltrates versus inflammatory pulmonary opacities mild (unknown) (no (unknown) (unknown) difficulty, (units (un known) date) struggles slightly unknown) with given directions. Patient has no WBC, but (unknown) (no (unknown) (unknown) disease. He had (units (unknown) date) multifocal lesions unknown) on his liver and spleen. He was also found to (unknown) (no (unknown) (unknown) fluticasone (units (un known) date) propionate unknown) [Flovent HFA] 44 mcg/actuation HFA aerosol inhaler (unknown) (no (unknown) (unknown) for mild sepsis, (units (unknown) date) transaminitis, unknown) UTI, encephalopathy. (unknown) (no (unknown) (unknown) gabapentin 300 mg (units (unknown) date) capsule unknown) (unknown) (no (unknown) (unknown) have a mass (units (un known) date) behind his L 1st unknown) rib with pathologic fracture. Initially he was (unknown) (no (unknown) (unknown) household (units (unkn own) date) members: spouse unknown) (unknown) (no (unknown) (unknown) infectious (units (unk nown) date) workup, though he unknown) had recently been treated at an outside hospital. (unknown) (no (unknown) (unknown) kcal/protein (units (u nknown) date) intake. 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 You had a (unknown) (no (unknown) (unknown) obtain HPI, ROS, (units (unknown) date) or medication unknown) reconciliation. Patient denies any pain, and (unknown) (no (unknown) (unknown) pacemaker on (units (u nknown) date) Eliquis, HTN, and unknown) melanoma who was sent over from Dr. Gillette (unknown) (no (unknown) (unknown) pain, or fever. (units (unknown) date) unknown) (unknown) (no (unknown) (unknown) recur over the (units (unknown) date) course of his unknown) stay. Ultimately the patient underly liver biopsy (unknown) (no (unknown) (unknown) started on zosyn (units (unknown) date) as well but unknown) antibiotics were discontinued after negative (unknown) (no (unknown) (unknown) tachycardia with (units (unknown) date) heart rates unknown) 111-154, and tachypneic respiratory rate in the (unknown) (no (unknown) (unknown) to moderate right (units (unknown) date) greater than left unknown) pulmonary effusion. SOFA:2 patient admitted (unknown) (no (unknown) (unknown) unsure if this is (units (unknown) date) the patient's unknown) baseline. Due to cognitive impairment unable to (unknown) (no (unknown) (unknown) ventricular paced (units (unknown) date) rhythm rate 72, unknown) abnormal. COVID, influenza a/B/RSV negative. (unknown) (no (unknown) (unknown) was brought into (units (unknown) date) the ED by his unknown) . In ED patient demonstrated escalating (unknown) (no (unknown) (unknown) with IR with (units (u nknown) date) biopsy results unknown) pending at this time. His malnutrition increased (unknown) (no (unknown) (unknown) work with (units (unkn own) date) physical therapy, unknown) was ultimately discharged home with home health. Result panel 281 (unknown) (no (unknown) (unknown) (no value) (units (unk nown) date) unknown) (unknown) (no (unknown) (unknown) (moderately low (units (unknown) date) for age), recent unknown) wt loss of 30 lbs, pt reporting decrease in PO, (unknown) (no (unknown) (unknown) (past 8 hours): (units (unknown) date) unknown) (unknown) (no (unknown) (unknown) [id number] (units (unkno wn) date) unknown) (unknown) (no (unknown) (unknown) 06/16/22 15:35 (units (unknown) date) unknown) (unknown) (no (unknown) (unknown) 06/16/22 20:34 (units (unknown) date) unknown) (unknown) (no (unknown) (unknown) 06/16/22 20:35 (units (unknown) date) unknown) (unknown) (no (unknown) (unknown) 06/16/22 21:05 (units (unknown) date) unknown) (unknown) (no (unknown) (unknown) 06/17/22 01:19 (units (unknown) date) unknown) (unknown) (no (unknown) (unknown) 06/17/22 02:01 (units (unknown) date) unknown) (unknown) (no (unknown) (unknown) 06/20/22 05:35 (units (unknown) date) unknown) (unknown) (no (unknown) (unknown) 06/20/22 13:17 (units (unknown) date) unknown) (unknown) (no (unknown) (unknown) 06/21/22 17:50 (units (unknown) date) unknown) (unknown) (no (unknown) (unknown) 06/22/22 14:25 (units (unknown) date) unknown) (unknown) (no (unknown) (unknown) 06/23/22 2203 (units ( unknown) date) unknown) (unknown) (no (unknown) (unknown) 1. Metastatic (units ( unknown) date) melanoma unknown) (unknown) (no (unknown) (unknown) 17.6, INR 1.5, (units (unknown) date) PTT 38. Sodium unknown) 135, BUN 34, glucose 146, calcium 8.1, magnesium (unknown) (no (unknown) (unknown) 2. Sepsis ruled (units (unknown) date) out unknown) (unknown) (no (unknown) (unknown) 2.6, phosphorus (units (unknown) date) 4.1, bili 2.1, AST unknown) 61, ALT 63, alk-phos 428, total protein 5.8, (unknown) (no (unknown) (unknown) 20s. During admit (units (unknown) date) interview patient unknown) is pleasantly confused orientated to self (unknown) (no (unknown) (unknown) 3. UTI, treated (units (unknown) date) unknown) (unknown) (no (unknown) (unknown) 300 mg PO BID (units ( unknown) date) unknown) (unknown) (no (unknown) (unknown) 4. Acute (units (unkno wn) date) metabolic unknown) encephalopathy, improving (unknown) (no (unknown) (unknown) 44 mcg INHALATION (units (unknown) date) DAILY unknown) (unknown) (no (unknown) (unknown) 5 mg PO BID (units (un known) date) unknown) (unknown) (no (unknown) (unknown) 5 mg PO DAILY (units ( unknown) date) unknown) (unknown) (no (unknown) (unknown) 5. Essential (units (u nknown) date) hypertension unknown) (unknown) (no (unknown) (unknown) 6. Atrial (units (unkn own) date) fibrillation, unknown) (unknown) (no (unknown) (unknown) 7. Moderate (units (unk nown) date) protein calorie unknown) malnutrition r/t poor appetite x1 month aeb BMI 22.9 (unknown) (no (unknown) (unknown) 98% on room air. (units (unknown) date) Patient did get up unknown) and ambulate to the restroom w/MA without (unknown) (no (unknown) (unknown) ABD: Soft, NT/ND, (units (unknown) date) BT present in all unknown) 4 quadrants, no organomegaly or masses (unknown) (no (unknown) (unknown) Activity: As (units (u nknown) date) tolerated unknown) (unknown) (no (unknown) (unknown) Age/Sex: 86 / M (units (unknown) date) unknown) (unknown) (no (unknown) (unknown) Asthma (units (unkno wn) date) unknown) (unknown) (no (unknown) (unknown) Atrial (units (unkno wn) date) fibrillation unknown) (unknown) (no (unknown) (unknown) Biopsy results (units (unknown) date) have returned as unknown) of the writing of this summary with malignant (unknown) (no (unknown) (unknown) CHEST: (units (unkno wn) date) Respiratory unknown) excursions symmetric, CTAB (unknown) (no (unknown) (unknown) CV: irregularly (units (unknown) date) irregular, no unknown) M/R/G (unknown) (no (unknown) (unknown) Chief complaint: (units (unknown) date) Pain near unknown) pacemaker (unknown) (no (unknown) (unknown) Chronic (units (unkno wn) date) anticoagulation unknown) (unknown) (no (unknown) (unknown) Comment: (units (unkno wn) date) Cachexia, liver unknown) biopsy, weakness (unknown) (no (unknown) (unknown) Comment: 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 unknown) (unknown) (no (unknown) (unknown) Comment: weakness (units (unknown) date) unknown) (unknown) (no (unknown) (unknown) Comment: (units (unkno wn) date) unknown) (unknown) (no (unknown) (unknown) Consult to (units (unk nown) date) Dietitian, Adult unknown) Routine (unknown) (no (unknown) (unknown) Consult to (units (unk nown) date) Discharge Planning unknown) Routine (unknown) (no (unknown) (unknown) Consult to Home (units (unknown) date) Health Routine unknown) (unknown) (no (unknown) (unknown) Consult to [employer] - (units (unknown) date) Medical Staff Manager unknown) Routine (unknown) (no (unknown) (unknown) Consult to (units (unk nown) date) Occupational unknown) Therapy Evaluate + Treat (unknown) (no (unknown) (unknown) Consult to (units (unk nown) date) Physical Therapy unknown) Evaluate + Treat (unknown) (no (unknown) (unknown) Consult to (units (unk nown) date) Physician Routine unknown) (unknown) (no (unknown) (unknown) Consult to Social (units (unknown) date) Services Routine unknown) (unknown) (no (unknown) (unknown) Consult to Speech (units (unknown) date) Therapy Evaluate + unknown) Treat (unknown) (no (unknown) (unknown) Consulting (units (unk nown) date) Provider: unknown) Aletha Turner (unknown) (no (unknown) (unknown) Consults: (units (unkn own) date) unknown) (unknown) (no (unknown) (unknown) Continued (units (unkn own) date) unknown) (unknown) (no (unknown) (unknown) : 1935 (units (unknown) date) Acct:[id number] unknown) (unknown) (no (unknown) (unknown) Date Patient (units (u nknown) date) Seen: 06/22/22 unknown) (unknown) (no (unknown) (unknown) Date of Service: (units (unknown) date) 06/16/22 unknown) (unknown) (no (unknown) (unknown) Date of (units (unkno wn) date) admission: unknown) (unknown) (no (unknown) (unknown) Deep Vein (units (unkn own) date) Thrombosis/Pulmona unknown) ry Embolism Present on Admission: No (unknown) (no (unknown) (unknown) Diet/Activity/Jaylen (units (unknown) date) atments unknown) (unknown) (no (unknown) (unknown) Diet: Diet as (units ( unknown) date) Tolerated unknown) (unknown) (no (unknown) (unknown) Discharge Data (units (unknown) date) unknown) (unknown) (no (unknown) (unknown) Discharge Date: (units (unknown) date) 06/22/22 unknown) (unknown) (no (unknown) (unknown) Discharge (units (unkn own) date) Diagnosis: unknown) (unknown) (no (unknown) (unknown) Discharge Plan (units (unknown) date) unknown) (unknown) (no (unknown) (unknown) Discharge (units (unkn own) date) Providers unknown) (unknown) (no (unknown) (unknown) Discharge Summary (units (unknown) date) unknown) (unknown) (no (unknown) (unknown) Discharge orders (units (unknown) date) + Medications unknown) (unknown) (no (unknown) (unknown) Discharge (units (unkn own) date) provider: unknown) (unknown) (no (unknown) (unknown) Yoseph Cardoso is (units (unknown) date) a 86-year-old male unknown) with a history of atrial fibrillation, with (unknown) (no (unknown) (unknown) Lucien Bagley (units (unkn own) date) MD Edyta unknown) (unknown) (no (unknown) (unknown) EXTR: warm, well (units (unknown) date) perfused, no C/C/E unknown) (unknown) (no (unknown) (unknown) Eliquis 5 mg (units (u nknown) date) tablet unknown) (unknown) (no (unknown) (unknown) End of Life/Goal (units (unknown) date) Care Dis unknown) (unknown) (no (unknown) (unknown) Essential (units (unkn own) date) hypertension unknown) (unknown) (no (unknown) (unknown) Exam Narrative: (units (unknown) date) unknown) (unknown) (no (unknown) (unknown) Exam (units (unkno wn) date) unknown) (unknown) (no (unknown) (unknown) Family History (units (unknown) date) (Reviewed 06/17/22 unknown) @ 00:47 [facility]) (unknown) (no (unknown) (unknown) Father (units (unknown) date) Diabetes mellitus unknown) (unknown) (no (unknown) (unknown) Follow (units (unkno wn) date) up/Referrals: unknown) (unknown) (no (unknown) (unknown) Fraction of (units (un known) date) Inspired Oxygen 21 unknown) (unknown) (no (unknown) (unknown) GEN:? Pleasant (units (unknown) date) elderly male, unknown) alert and oriented x 2, NAD, hard of hearing (unknown) (no (unknown) (unknown) HEENT:NC, Face (units (unknown) date) symmetric unknown) (unknown) (no (unknown) (unknown) Has provider been (units (unknown) date) notified: No unknown) (unknown) (no (unknown) (unknown) Head CT negative. 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 (unknown) (no (unknown) (unknown) Hospital Course (units (unknown) date) unknown) (unknown) (no (unknown) (unknown) Hospital Course: (units (unknown) date) unknown) (unknown) (no (unknown) (unknown) Inhale 2 puff (units ( unknown) date) using inhaler unknown) twice a day (unknown) (no (unknown) (unknown) [facility] (units (unknown) date) [address] unknown) [place] [address] (unknown) (no (unknown) (unknown) Labs (units (unkno wn) date) unknown) (unknown) (no (unknown) (unknown) Lucien Lan (units (unknown) date) MD Yudi [Primary unknown) Care Provider] (unknown) (no (unknown) (unknown) MNA 10 (at risk (units (unknown) date) for malnutrition), unknown) diet recall suggesting inadequate (unknown) (no (unknown) (unknown) [employer] Consult (units (un known) date) needed for:: unknown) [facility] Need (unknown) (no (unknown) (unknown) Medical History (units (unknown) date) (Updated 06/17/22 unknown) @ 00:55 by Hawa Michael [facility]) (unknown) (no (unknown) (unknown) Mother (units (unknown) date) No problems noted. unknown) (unknown) (no (unknown) (unknown) NEURO: Alert and (units (unknown) date) oriented x 2, unknown) nonfocal (unknown) (no (unknown) (unknown) Narrative (units (unkn own) date) unknown) (unknown) (no (unknown) (unknown) Narrative: (units (unk nown) date) unknown) (unknown) (no (unknown) (unknown) Objective (units (unkn own) date) unknown) (unknown) (no (unknown) (unknown) On admission he (units (unknown) date) was noted to have unknown) rapid afib that resolved quickly and did not (unknown) (no (unknown) (unknown) Oxygen Delivery (units (unknown) date) Method Room Air unknown) (unknown) (no (unknown) (unknown) Oxygen Flow Rate (units (unknown) date) 0 unknown) (unknown) (no (unknown) (unknown) PFSH (units (unkno wn) date) unknown) (unknown) (no (unknown) (unknown) Pacemaker (units (unkn own) date) unknown) (unknown) (no (unknown) (unknown) Patient Comments: (units (unknown) date) unknown) (unknown) (no (unknown) (unknown) Patient (units (unkno wn) date) Disposition: Home unknown) Health Service (unknown) (no (unknown) (unknown) Patient: (units (unkno wn) date) Yoseph Cardoso Yudi unknown) MR#: [id number] (unknown) (no (unknown) (unknown) Per admitting (units ( unknown) date) provider, unknown) (unknown) (no (unknown) (unknown) Physician (units (unkn own) date) Instructions: unknown) Evaluate and Treat (unknown) (no (unknown) (unknown) Physician (units (unkn own) date) Instructions: unknown) Evaluate and treat (unknown) (no (unknown) (unknown) Prescriptions: (units (unknown) date) unknown) (unknown) (no (unknown) (unknown) Primary Care (units (u nknown) date) Provider: unknown) Lucien Lan (unknown) (no (unknown) (unknown) Primary care (units (u nknown) date) physician: unknown) (unknown) (no (unknown) (unknown) Provider (units (unkno wn) date) Discharge Comment: unknown) You were admitted to the hospital, found to have (unknown) (no (unknown) (unknown) Provider (units (unkno wn) date) unknown) (unknown) (no (unknown) (unknown) Provider: (units (unkn own) date) Jim Syed unknown) D.O. 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 for discharge home (unknown) (no (unknown) (unknown) Reason for (units (unk nown) date) consultation: unknown) multiple lesions of liver + spleen (unknown) (no (unknown) (unknown) Jim Syed, (units (unknown) date) DO unknown) (unknown) (no (unknown) (unknown) SKIN: warm and (units (unknown) date) dry, no rash unknown) (unknown) (no (unknown) (unknown) SaO2/FiO2 Ratio (units (unknown) date) 452 unknown) (unknown) (no (unknown) (unknown) Signed (units (unkno wn) date) By:<Electronically unknown) signed by Jim Syed D.O.> (unknown) (no (unknown) (unknown) Smoking Status: (units (unknown) date) Never smoker unknown) (unknown) (no (unknown) (unknown) Social History (units (unknown) date) (Reviewed 06/16/22 unknown) @ 14:04 by Matt Swartz MD) (unknown) (no (unknown) (unknown) Stand Alone (units (un known) date) Forms: Patient unknown) Portal/API, Stroke Signs + Symptoms (unknown) (no (unknown) (unknown) Summary (units (unkno wn) date) unknown) (unknown) (no (unknown) (unknown) Surgical History (units (unknown) date) (Updated 06/16/22 unknown) @ 21:27 by Hawa Michael [facility]) (unknown) (no (unknown) (unknown) This is an 86 (units ( unknown) date) year old male unknown) admitted with 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 (unknown) (no (unknown) (unknown) Time Spent with (units (unknown) date) Patient unknown) (unknown) (no (unknown) (unknown) Time spent: (units (un known) date) Greater than 30 unknown) minutes (unknown) (no (unknown) (unknown) Upon admit BP (units (u nknown) date) 149/78, unknown) tachycardic heart rate 154, tachypneic R 29, O2 saturation (unknown) (no (unknown) (unknown) VTE (units (unkno wn) date) unknown) (unknown) (no (unknown) (unknown) Visit (units (unkno wn) date) Report/Discharge unknown) Packet (unknown) (no (unknown) (unknown) Vital Signs (units (un known) date) unknown) (unknown) (no (unknown) (unknown) [Embedded Image (units (unknown) date) Not Available] unknown) (unknown) (no (unknown) (unknown) a recent 30 lb (units (unknown) date) weight loss, and unknown) night sweats with a shuffling gait x6 weeks. He (unknown) (no (unknown) (unknown) albumin 3.1, CK (units (unknown) date) 53, initial unknown) troponin negative, BNP 1430. EKG atrial sensed (unknown) (no (unknown) (unknown) alcohol intake: (units (unknown) date) current unknown) (unknown) (no (unknown) (unknown) amlodipine 5 mg (units (unknown) date) tablet unknown) (unknown) (no (unknown) (unknown) and place, but a (units (unknown) date) very poor unknown) historian, stated that 'he came in today by himself (unknown) (no (unknown) (unknown) appears is no (units ( unknown) date) distress at this unknown) time, no apparent jaundice, right upper quadrant (unknown) (no (unknown) (unknown) because he had (units (unknown) date) black urine this unknown) morning'. He did not recall seeing Dr. Gillette, (unknown) (no (unknown) (unknown) biopsy. (units (unkno wn) date) unknown) (unknown) (no (unknown) (unknown) cardiology's (units (u nknown) date) office due to his unknown) significant presentation of cachexia, weakness, (unknown) (no (unknown) (unknown) complexity of his (units (unknown) date) case and increased unknown) the duration of his stay. He continued to (unknown) (no (unknown) (unknown) demonstrated (units (u nknown) date) bibasilar unknown) infiltrates versus inflammatory pulmonary opacities mild (unknown) (no (unknown) (unknown) difficulty, (units (un known) date) struggles slightly unknown) with given directions. Patient has no WBC, but (unknown) (no (unknown) (unknown) disease. He had (units (unknown) date) multifocal lesions unknown) on his liver and spleen. He was also found to (unknown) (no (unknown) (unknown) fluticasone (units (un known) date) propionate unknown) [Flovent HFA] 44 mcg/actuation HFA aerosol inhaler (unknown) (no (unknown) (unknown) for mild sepsis, (units (unknown) date) transaminitis, unknown) UTI, encephalopathy. (unknown) (no (unknown) (unknown) gabapentin 300 mg (units (unknown) date) capsule unknown) (unknown) (no (unknown) (unknown) have a mass (units (un known) date) behind his L 1st unknown) rib with pathologic fracture. Initially he was (unknown) (no (unknown) (unknown) household (units (unkn own) date) members: spouse unknown) (unknown) (no (unknown) (unknown) infectious (units (unk nown) date) workup, though he unknown) had recently been treated at an outside hospital. (unknown) (no (unknown) (unknown) kcal/protein (units (u nknown) date) intake. unknown) (unknown) (no (unknown) (unknown) left shiftneut (units (unknown) date) 8200, initial unknown) lactate 4.3, repeat 2.7, procalcitonin 3.27, PT (unknown) (no (unknown) (unknown) liver biopsy (units (un known) date) yesterday, follow unknown) up with your outside providers for results of the (unknown) (no (unknown) (unknown) malaise, balance (units (unknown) date) coordination unknown) issues, and concerns for neoplastic syndrome with (unknown) (no (unknown) (unknown) melanoma. (units (unkn own) date) unknown) (unknown) (no (unknown) (unknown) metastatic (units (unk nown) date) disease of unknown unknown) source at this time, possibly melanoma. You had a (unknown) (no (unknown) (unknown) obtain HPI, ROS, (units (unknown) date) or medication unknown) reconciliation. Patient denies any pain, and (unknown) (no (unknown) (unknown) pacemaker on (units (u nknown) date) Eliquis, HTN, and unknown) melanoma who was sent over from Dr. Gillette (unknown) (no (unknown) (unknown) pain, or fever. (units (unknown) date) unknown) (unknown) (no (unknown) (unknown) recur over the (units (unknown) date) course of his unknown) stay. Ultimately the patient underly liver biopsy (unknown) (no (unknown) (unknown) started on zosyn (units (unknown) date) as well but unknown) antibiotics were discontinued after negative (unknown) (no (unknown) (unknown) tachycardia with (units (unknown) date) heart rates unknown) 111-154, and tachypneic respiratory rate in the (unknown) (no (unknown) (unknown) to moderate right (units (unknown) date) greater than left unknown) pulmonary effusion. SOFA:2 patient admitted (unknown) (no (unknown) (unknown) unsure if this is (units (unknown) date) the patient's unknown) baseline. Due to cognitive impairment unable to (unknown) (no (unknown) (unknown) ventricular paced (units (unknown) date) rhythm rate 72, unknown) abnormal. COVID, influenza a/B/RSV negative. (unknown) (no (unknown) (unknown) was brought into (units (unknown) date) the ED by his unknown) . In ED patient demonstrated escalating (unknown) (no (unknown) (unknown) with IR with (units (u nknown) date) biopsy results unknown) pending at this time. His malnutrition increased (unknown) (no (unknown) (unknown) work with (units (unkn own) date) physical therapy, unknown) was ultimately discharged home with home health. Result panel 282 (unknown) (no date) (unknown) (unknown) (no value) (units (un known) unknown) (unknown) (no date) (unknown) (unknown) No cells or (units (u nknown) organisms seen unknown) (unknown) (no date) (unknown) (unknown) No cells or (units (u nknown) organisms seen unknown) (unknown) (no date) (unknown) (unknown) No growth. (units (un known) unknown) Result panel 283 (unknown) (no date) (unknown) (unknown) (no value) (units (un known) unknown) (unknown) (no date) (unknown) (unknown) No cells or (units (u nknown) organisms seen unknown) (unknown) (no date) (unknown) (unknown) No cells or (units (u nknown) organisms seen unknown) (unknown) (no date) (unknown) (unknown) No growth. (units (un known) unknown) Result panel 284 (unknown) (no date) (unknown) (unknown) (no value) (units (un known) unknown) (unknown) (no date) (unknown) (unknown) No cells or (units (u nknown) organisms seen unknown) (unknown) (no date) (unknown) (unknown) No cells or (units (u nknown) organisms seen unknown) (unknown) (no date) (unknown) (unknown) No growth. (units (un known) unknown) Result panel 285 (unknown) (no date) (unknown) (unknown) (no value) (units (un known) unknown) (unknown) (no date) (unknown) (unknown) No cells or (units (u nknown) organisms seen unknown) (unknown) (no date) (unknown) (unknown) No cells or (units (u nknown) organisms seen unknown) (unknown) (no date) (unknown) (unknown) No growth. (units (un known) unknown) Social History date description facility 2022-06-16 00:00 Never smoked tobacco (finding) [facility] 2022-06-16 00:00 Smoker (finding) [facility] Vital Signs date measurement value units 2022-06-16 00:00 BMI 22.9 kg/m2 2022-06-16 00:00 BP_diastolic 96 mmHg 2022-06-16 00:00 BP_systolic 164 mmHg 2022-06-16 00:00 heart_rate 98 /min 2022-06-16 00:00 height_metric 180.34 cm 2022-06-16 00:00 height_standard 71 in 2022-06-16 00:00 o2_saturation 97 % 2022-06-16 00:00 respiration_rate 20 /min 2022-06-16 00:00 temperature_metric 36.72 C 2022-06-16 00:00 temperature_standard 98.1 F 2022-06-16 00:00 weight_metric 72.3 kg 2022-06-16 00:00 weight_metric 74.6 kg 2022-06-16 00:00 weight_standard 159.39 lb 2022-06-16 00:00 weight_standard 164.46 lb 2022-06-22 00:00 BP_diastolic 67 mmHg 2022-06-22 00:00 BP_systolic 136 mmHg 2022-06-22 00:00 heart_rate 77 /min 2022-06-22 00:00 o2_saturation 98 % 2022-06-22 00:00 respiration_rate 16 /min 2022-06-22 00:00 temperature_metric 35.83 C 2022-06-22 00:00 temperature_standard 96.5 F
[2022-07-07 17:46] LABS: CLARITY,URINE HAZY (CLEAR)
[2022-07-07 17:57] LABS: BACTERIA,URINE Rare /HPF (None Seen); RBC,URINE 0-5 /HPF (0-5); SQUAMOUS EPITHELIAL CELL,UR NONE SEEN (<= Few); WBC,URINE 0-3 /HPF (0-3)
[2022-07-07 18:00] LABS: BASOPHILS # (AUTO) 0.1 10^3/uL (0.0-0.1); BASOPHILS % (AUTO) 1.2 %; EOSINOPHILS # (AUTO) 0.1 10^3/uL (0.0-0.7); EOSINOPHILS % (AUTO) 1.3 %; HCT - HEMATOCRIT 39.5 % (42.0-52.0); HGB - HEMOGLOBIN 12.2 g/dL (14.0-18.0); LYMPHOCYTES # (AUTO) 0.6 10^3/uL (1.5-3.5); LYMPHOCYTES % (AUTO) 7.6 %; MEAN CORPUSCULAR HGB CONC 30.9 g/dL (32.0-36.0); MEAN CORPUSCULAR VOLUME 97.3 fL (80.0-94.0); MEAN PLATELET VOLUME 8.9 fL (7.4-11.4); MONOCYTES # (AUTO) 0.8 10^3/uL (0.0-1.0); MONOCYTES % (AUTO) 9.6 %; NEUTROPHILS # (AUTO) 6.6 10^3/uL (1.5-6.6); NEUTROPHILS % (AUTO) 79.5 %; PLT - PLATELET COUNT 206 10^3/uL (130-450); RED BLOOD COUNT 4.06 10^6/uL (4.70-6.10); RED CELL DISTRIBUTION WIDTH 16.4 % (12.0-15.0); WHITE BLOOD COUNT 8.3 x10^3/uL (4.8-10.8)
--- NOTE | 2022-07-07 18:14 | XRAY Report ---
PROCEDURE: Chest 1 View X-Ray INDICATIONS: chest pain TECHNIQUE: One view of the chest was acquired. COMPARISON: Left Port-A-Cath is present. FINDINGS: Surgical changes and devices: None. Lungs and pleura: Mild hazy bibasilar opacities. Mediastinum: Mediastinal contours appear normal. Heart size is normal. Bones and chest wall: No suspicious bony lesions. Overlying soft tissues appear unremarkable. IMPRESSION: Mild hazy bibasilar opacities suggestive of mild effusions. Underlying areas of pneumonia and/or atel ectasis cannot be excluded. Reviewed by: Jerica Adamson MD on 07/07/2022 6:13 PM PDT Approved by: Jerica Adamson MD on 07/07/2022 6:13 PM PDT Station ID: [id number]
[2022-07-07 18:18] LABS: ALBUMIN 2.3 g/dL (3.2-5.5); ALBUMIN/GLOBULIN RATIO 0.8 (1.0-2.2); BILIRUBIN,TOTAL 2.1 mg/dL (0.2-1.0); CALCIUM 7.9 mg/dL (8.5-10.3); CRP - C-REACTIVE PROTEIN 13.3 mg/dL (0-1.0); MAGNESIUM 2.1 mg/dL (1.7-2.8); POTASSIUM 4.1 mmol/L (3.5-5.0); TOTAL PROTEIN 5.3 g/dL (6.7-8.2)
[2022-07-07 18:55] LABS: B. PARAPERTUSSIS- RESP PCR PAN NOT DETECTED; B. PERTUSSIS- RESP PCR PANEL NOT DETECTED; C. PNEUMONIAE- RESP PCR PANEL NOT DETECTED; CORONAVIRUS 229E-RESP PCR NOT DETECTED; CORONAVIRUS HKU1-RESP PCR NOT DETECTED; CORONAVIRUS NL63-RESP PCR NOT DETECTED; CORONAVIRUS OC43-RESP PCR NOT DETECTED; HUMAN METAPNEUMOVIRUS NOT DETECTED; INFLUENZA A- RESP PCR PANEL NOT DETECTED; INFLUENZA B - RESP PCR PANEL NOT DETECTED; M. PNEUMONIAE- RESP PCR PANEL NOT DETECTED; PARAINFLUENZA VIRUS 1 NOT DETECTED; PARAINFLUENZA VIRUS 2 NOT DETECTED; PARAINFLUENZA VIRUS 3 NOT DETECTED; PARAINFLUENZA VIRUS 4 NOT DETECTED; RHINOVIRUS/ENTEROVIRUS NOT DETECTED; RSV- RESP PCR PANEL NOT DETECTED; SARS-CoV-2 -RESP PCR PANEL NOT DETECTED
[2022-07-07 19:43] VITALS: BP 149/66
--- NOTE | 2022-07-07 20:10 | Ultrasound Report ---
PROCEDURE: Abdomen Limited INDICATIONS: fever, elevated LFTs. TECHNIQUE: Real-time scanning was performed of the abdominal and retroperitoneal organs, with image documentatio n. COMPARISON: Ultrasound abdomen 06/13/2022, CT abdomen pelvis 06/13/2022. FINDINGS: Liver: Liver is enlarged measuring 17.9 cm and mildly heterogeneous in appearance, unchanged. Hypoec hoic focus within left lower lobe measuring less than 1 cm Gallbladder: Gallbladder wall is thickened measuring approximately 5 mm, relatively similar compared to prior exam. No visualized stone. Biliary ducts: No gross intra or extrahepatic dilation. Common bile duct is not well seen. Pancreas: Visualized portions of the pancreas are sonographically normal. Kidneys: Right kidney measures 11.1 cm long. No hydronephrosis or nephrolithiasis. No solid masses . IMPRESSION: Unchanged appearance of gallbladder wall thickening without stones. Pelvis could be related to long-s tanding a calculus cholecystitis, other etiologies such as hepatic disease is considered also likely. Ill-defined focus of low-attenuation within the left lobe too small to definitively characterize and not well seen on prior exams. Attention is region on follow-up exams is recommended. Reviewed by: Jerica Adamson MD on 07/07/2022 8:08 PM PDT Approved by: Jerica Adamson MD on 07/07/2022 8:08 PM PDT Station ID: [id number]
[2022-07-07] MEDS ORDERED: KETOROLAC 15 MG/ML VIAL IVP STA (20:22)
--- NOTE | 2022-07-07 20:56 | ED Physician Documentation ---
ED Addendum - Addendum Addendum: 07/07/22 Patient signed out to me by Dr. Birch pending results of ultrasound. Ultrasound was ordered due to elevated LFTs. However on further discussion with Dr. Birch as well as review of outpatient labs including records from [facility] it appears that his LFTs are chronically elevated. Patient is presenting for evaluation of a fever of 101 this afternoon. He did not receive medications prior to arrival in the emergency department and has been afebrile here. He did increase his chemo doses today. [id number] - I did speak with Vanessa Carmona who is the physician assistant therapy aide on-call for Donald Bell. Unfortunately outpatient attendings are not available on the overnight hours or weekends.We did review the patient's presentation as well as she was able to review his chart. She states that his symptoms could be from increasing his dose of binimetinib. She recommends that the patient go back down on his dose to the most recent dose he was able to tolerate. They also have a system in place where they will reach out to the patient at 8:00 in the morning To check and see how he is doing. She states patient can take ibuprofen as needed for fever or chills. Based on His labs and vital signs here as well as lack of other symptoms it does not appear that he is septic and does not have apparent source for any infection. Blood cultures are pending. Reviewed recommendations with patient and spouse.They are advised on need for continued follow-up with his oncologist, plan to reduce chemo back to the prior dose. They are also advised on strict return precautions.Patient's repeat abdominal exam remains benign with no tenderness and no clinical symptoms to suggest acute cholecystitis. Patient additionally denies cough or congestion to suggest pneumonia. Departure - Departure Disposition: 01 Home, Self Care Clinical Impression: Metastatic melanoma, Status post chemotherapy Fever Qualifiers: Fever type: unspecified Qualified Code(s): R50.9 - Fever, unspecified Condition: Stable Instructions: ED Fever Control Comments: Your symptoms could be caused by the increase of your chemo medications. After speaking to Donald ZALDIVAR this evening, they are recommending that you reduce the dose back down to what you were taking yesterday. They will also reach out to you at 8:00 tomorrow morning to see how you are doing. At this time there is no clear source for your fever which is why it is presumed to be from the increase in your chemo medication. However we did obtain blood cultures which will grow out for the next couple of days to see if there is any infection in your bloodstream. If these are abnormal for any reason we will notify you immediately. Discharge Date/Time: 07/07/22 22:08
== END 2022-07-07 22:08 | disposition home or self-care (01) ==
LOC: EDUNIT# → ED 17:16
DX: R50.9 Fever, unspecified (principal); C79.9 Secondary malignant neoplasm of unspecified site; F03.90 Unspecified dementia, unspecified severity, without behavioral disturbance, psychotic disturbance, mood disturbance, and anxiety; Z92.21 Personal history of antineoplastic chemotherapy; Z20.822 Contact with and (suspected) exposure to COVID-19
CPT/HCPCS: 36415; 51798; 71045; 76705; 80053; 81001; 83605; 83690; 83735; 84153; 85025; 86140; 87040; 87150; 87181; 87633; 96374; 99284; A9270; 81003; 87086

== ENCOUNTER 2022-07-08 10:17 | Outpatient (CLI) | payer MEDICARE, OTHER | END 2022-07-08 10:18 | disposition critical access hospital (66) | LOC: EMS 10:17 | DX: R53.1 Weakness (principal); R50.9 Fever, unspecified; R53.83 Other fatigue; R41.0 Disorientation, unspecified | CPT/HCPCS: A0425; A0429 ==

== ENCOUNTER 2022-07-08 10:31 | Inpatient (IN) | payer MEDICARE, OTHER ==
--- NOTE | 2022-07-08 10:38 | ED Physician Documentation ---
History of Present Illness - Stated complaint Stated Complaint: + BLOOD CULTURE - History obtained from History obtained from: Patient, Family, EMS - History of Present Illness Timing: Yesterday Pain level max: 0 Pain level now: 0 - Additonal information Additional information: Patient was seen here last night for fever. He has a history of dementia. He is unable to give any history himself. He had been treated recently for UTI that was treated with amoxicillin. Was not improving and seen at [facility] admitted for 6 days. Discharged about 2 weeks ago. Patient has a history of metastatic melanoma, followed by oncology at [facility]. His blood cultures were positive for E. coli overnight. Patient called to return to the hospital. Patient has ongoing liver function test elevation. Respiratory viral PCR was negative last night. Thought last night was possible immune response from chemotherapy. Patient denies any abdominal pain. No vomiting. No diarrhea. Patient has a history of recurrent UTIs. Review of Systems Constitutional: reports: Fever (101) Nose: denies: Rhinorrhea / runny nose, Congestion Throat: denies: Sore throat Respiratory: denies: Cough Skin: denies: Rash PD PAST MEDICAL HISTORY - Past Medical History Cardiovascular: Pulmonary embolism Respiratory: Asthma Neuro: Dementia GI: GERD : Other Psych: None Musculoskeletal: Osteoarthritis Derm: None, Other (Melanoma) - Past Surgical History Past Surgical History: Yes General: Appendectomy HEENT: Cataracts Derm: Skin cancer surgery - Present Medications Home Medications: Ambulatory Orders Medication Instructions Recorded Confirmed Fluticasone 44 Mcg [Flovent] 2 puffs INH BID 09/28/18 07/08/22 Amlodipine Besylate [Norvasc] 2.5 mg PO BID 07/08/22 07/08/22 Apixaban [Eliquis] 5 mg PO BID 07/08/22 07/08/22 Gabapentin [Neurontin] 300 mg PO BID 07/08/22 07/08/22 - Allergies Allergies/Adverse Reactions: Allergies Allergy/AdvReac Type Severity Reaction Status Date / Time pneumococcal vaccine Allergy Hives Verified 07/08/22 12:29 [From Prevnar 13 (PF)] - Social History Does the pt smoke?: No Smoking Status: Never smoker Does the pt drink ETOH?: Yes Does the pt have substance abuse?: No - Immunizations Immunizations are current?: Yes - POLST Patient has POLST: No PD ED PE NORMAL - Vitals Vital signs reviewed: Yes - General General: No acute distress, Well developed/nourished, Other (Alert, oriented to person and place) - HEENT HEENT: PERRL, Moist mucous membranes, Pharynx benign - Neck Neck: Supple, no meningeal sign - Cardiac Cardiac: RRR, Strong equal pulses - Respiratory Respiratory: No respiratory distress, Clear bilaterally - Abdomen Abdomen: Soft, Non tender, Non distended - Back Back: No CVA TTP - Derm Derm: Warm and dry, No rash - Extremities Extremities: No calf tenderness / cord - Neuro Neuro: Other (Alert, at his normal mental baseline) Results - Vitals Vitals: Vital Signs - 24 hr 07/08/22 07/08/22 07/08/22 10:48 11:14 12:00 Temperature 36.8 C Heart Rate 99 99 99 Respiratory 20 16 20 Rate Blood Pressure 163/76 H 162/72 H 157/79 H O2 Saturation 100 100 Oxygen O2 Source Room air - Labs Labs: Laboratory Tests 07/08/22 07/08/22 07/08/22 10:48 10:48 10:48 WBC 7.7 RBC 4.24 L Hgb 12.8 L Hct 40.7 L MCV 96.0 H MCH 30.2 MCHC 31.4 L RDW 16.5 H Plt Count 210 MPV 9.0 Neut # (Auto) 6.7 H Lymph # (Auto) 0.3 L Wilkinson # (Auto) 0.5 Eos # (Auto) 0.0 Baso # (Auto) 0.1 Absolute Nucleated RBC 0.00 Nucleated RBC % 0.0 PT 17.4 H INR 1.6 H APTT 53.5 H Sodium 138 Potassium 4.0 Chloride 104 Carbon Dioxide 27 Anion Gap 7.0 BUN 22 H Creatinine 1.0 Estimated GFR (MDRD) 71 L Glucose 109 H Lactic Acid Calcium 8.0 L Total Bilirubin 2.4 H AST 51 H ALT 57 Alkaline Phosphatase 710 H Total Protein 5.5 L Albumin 2.3 L Globulin 3.2 Albumin/Globulin Ratio 0.7 L Lipase 67 H Urine Color Urine Clarity Urine pH Ur Specific Mabel Urine Protein Urine Glucose (UA) Urine Ketones Urine Occult Blood Urine Nitrite Urine Bilirubin Urine Urobilinogen Ur Leukocyte Esterase Urine RBC Urine WBC Ur Squamous Epith Cells Urine Bacteria Urine Casts Ur Microscopic Review Urine Culture Comments 07/08/22 07/08/22 10:48 11:02 WBC RBC Hgb Hct MCV MCH MCHC RDW Plt Count MPV Neut # (Auto) Lymph # (Auto) Wilkinson # (Auto) Eos # (Auto) Baso # (Auto) Absolute Nucleated RBC Nucleated RBC % PT INR APTT Sodium Potassium Chloride Carbon Dioxide Anion Gap BUN Creatinine Estimated GFR (MDRD) Glucose Lactic Acid 2.2 Calcium Total Bilirubin AST ALT Alkaline Phosphatase Total Protein Albumin Globulin Albumin/Globulin Ratio Lipase Urine Color BROWN Urine Clarity CLEAR Urine pH 6.5 Ur Specific Mabel 1.020 Urine Protein 30 H Urine Glucose (UA) NEGATIVE Urine Ketones NEGATIVE Urine Occult Blood NEGATIVE Urine Nitrite POSITIVE H Urine Bilirubin NEGATIVE Urine Urobilinogen 1 (NORMAL) Ur Leukocyte Esterase TRACE H Urine RBC 0-5 Urine WBC 6-10 H Ur Squamous Epith Cells NONE SEEN Urine Bacteria Few Urine Casts 0-2 WBC Casts Ur Microscopic Review INDICATED Urine Culture Comments INDICATED PD Medical Decision Making - ED course Complexity details: reviewed results, re-evaluated patient, considered differential, d/w patient, d/w family, d/w splunk consultant ED course: Patient had a chest x-ray last night that showed mild hazy bibasilar opacities suggestive of mild effusion. He had an abdominal ultrasound last night that showed an unchanged appearance of gallbladder wall thickening without stones. Could be related to hepatic disease or longstanding a calculus cholecystitis. No pericholecystic fluid and the patient is nontender on exam. Does have a UTI. Likely the source of his E. coli bacteremia. We will start the patient on Rocephin here. His lactate is normal. Discussed the case with Dr. Rivera, hospitalist who accepts. Patient admitted This document was made in part using voice recognition software. While efforts are made to proofread this document, sound alike and grammatical errors may occur. Departure - Departure Disposition: 66 [facility] DC/[facility] Clinical Impression: E coli bacteremia, Elevated LFTs, Metastatic melanoma Condition: Stable Discharge Date/Time: 07/08/22 13:44
--- OUTSIDE RECORDS SUMMARY | 2022-07-08 10:53 | EXTERNAL MEDICAL SUMMARY RPT | Continuity of Care Document ---
:1935 Author Organization [facility] Address [address] [place] [address] Phone Care Team Providers Name Role Phone Unavailable Unavailable Unavailable Lucien Lan Unavailable Unavailable Allergies and Intolerances date description facility type (no date) pneumococcal 7-valent conjugate to [facility] (unknown) Encounters No information. Functional Status No information. Immunizations No information. Medications date description facility 2022-06-16 00:00 Apixaban [facility] 2022-06-16 00:00 Amlodipine [facility] 2022-06-16 00:00 Gabapentin [facility] Problems date description facility 2022-06-16 00:00 Sepsis [facility] 2022-06-16 00:00 Atrial fibrillation [facility] 2022-06-16 00:00 Urinary tract infection [facility] 2022-06-16 00:00 Confusion [facility] 2022-06-16 00:00 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 [facility] 2022-06-19 13:52 Sepsis, unspecified organism [facility] 2022-06-22 08:33 Sepsis, unspecified organism [facility] 2022-06-22 11:44 Sepsis, unspecified organism [facility] 2022-06-22 14:32 Sepsis, unspecified organism [facility] 2022-06-27 14:23 Sepsis, unspecified organism [facility] 2022-06-27 14:43 Sepsis, unspecified organism [facility] Procedures date description facility 2022-06-16 00:00 Computed tomography of head or brain wi [facility] contrast 2022-06-21 00:00 Gram Stain [facility] 2022-06-20 00:00 CT soft tissue neck w [facility] 2022-06-16 00:00 X-ray of chest, single view [facility] 2022-06-16 00:00 CT abdomen pelvis w [facility] 2022-06-17 00:00 US Abdomen limited [facility] 2022-06-16 00:00 CT chest w [facility] 2022-06-21 00:00 CT biopsy [facility] Results/Labs test date author facility value unit [...] nown) date) unknown) (unknown) (no (unknown) (unknown) [id number] (units (unkno wn) date) unknown) (unknown) (no (unknown) (unknown) 06/16/22 (units (unkno wn) date) unknown) (unknown) (no (unknown) (unknown) [address] (units (unkn own) date) Street unknown) (unknown) (no (unknown) (unknown) Accession (units (unkn own) date) Number: unknown) [id number] (unknown) (no (unknown) (unknown) Age/Sex: 86 / M (units (unknown) date) Date of Service: unknown) (unknown) (no (unknown) (unknown) [place], [place] (units ( unknown) date) [address] unknown) (unknown) (no (unknown) (unknown) Approved by: (units (u nknown) date) Brandyn Davis M.D. unknown) on 06/16/2022 at 13:03 (unknown) (no (unknown) (unknown) Bones and chest (units (unknown) date) wall: No unknown) suspicious bony lesions. Overlying soft tissues (unknown) (no (unknown) (unknown) COMPARISON: (units (un known) date) None. unknown) (unknown) (no (unknown) (unknown) : 1935 (units (unknown) date) Acct:[id number] unknown) (unknown) (no (unknown) (unknown) Dictated by: (units (u nknown) date) Brandyn Davis M.D. unknown) on 06/16/2022 at 13:02 (unknown) (no (unknown) (unknown) FINDINGS: (units (unkn own) date) unknown) (unknown) (no (unknown) (unknown) IMPRESSION: (units (un known) date) Possible mild unknown) right and retrocardiac opacities could represent (unknown) (no (unknown) (unknown) INDICATIONS: (units (u nknown) date) suspected sepsis unknown) (unknown) (no (unknown) (unknown) [facility] (units (unknown) date) unknown) (unknown) (no (unknown) [...] nown) date) unknown) (unknown) (no (unknown) (unknown) [id number] (units (unkno wn) date) unknown) (unknown) (no (unknown) (unknown) 06/16/22 (units (unkno wn) date) unknown) (unknown) (no (unknown) (unknown) [address] [place] [address] (units (unknown) date) unknown) (unknown) (no (unknown) (unknown) Accession Number: (units (unknown) date) [id number] unknown) (unknown) (no (unknown) (unknown) Age/Sex: 86 / M (units (unknown) date) Date of Service: unknown) (unknown) (no (unknown) (unknown[place] ( [place] date[place] [address] unknown) (unknown) (no (unknown) (unknown) Approved by: [...] (unknown) (unknown) : 1935 (units (unknown) date) Acct:[id number] unknown) (unknown) (no (unknown) (unknown) Dictated by: [...] date) Good unknown) (unknown) (no (unknown) (unknown) [facility] (units (unknown) date) unknown) (unknown) (no (unknown) [...] nown) date) unknown) (unknown) (no (unknown) (unknown) [id number] (units (unkno wn) date) unknown) (unknown) (no (unknown) (unknown) 06/16/22 (units (unkno wn) date) unknown) (unknown) (no (unknown) (unknown) [address] [place] [address] (units (unknown) date) unknown) (unknown) (no (unknown) (unknown) Accession (units (unkn own) date) Number: unknown) [id number] (unknown) (no (unknown) (unknown) After the (units (unkn own) date) administration of unknown) intravenous contrast, 5 mm thick sections acquired (unknown) (no (unknown) (unknown) Age/Sex: 86 / M (units (unknown) date) Date of Service: unknown) (unknown) (no (unknown) (unknown) [place], [place] (units ( unknown) date) [address] unknown) (unknown) (no (unknown) (unknown) Approved by: (units (u nknown) date) Brandyn Davis M.D. unknown) on 06/16/2022 at 14:52 (unknown) (no (unknown) (unknown) Bones: No acute (units (unknown) date) or suspicious unknown) osseous abnormality. (unknown) (no (unknown) (unknown) COMPARISON: (units (un known) date) [facility], unknown) CR, XR CHEST 1V, 06/16/2022, 12:43. (unknown) (no (unknown) (unknown) CT Scan Report (units (unknown) date) unknown) (unknown) (no (unknown) (unknown) Chest wall and (units (unknown) date) thyroid: unknown) Unremarkable (unknown) (no (unknown) (unknown) : 1935 (units (unknown) date) Acct:[id number] unknown) (unknown) (no (unknown) (unknown) Dictated by: [...] date) Good unknown) (unknown) (no (unknown) (unknown) [facility] (units (unknown) date) unknown) (unknown) (no (unknown) (unknown) Loc: ED (units (unkno wn) date) unknown) (unknown) (no (unknown) (unknown) Lungs and (units (unkn own) date) pleura: Bilateral unknown) rxxn-[id number]-cldlppsx pleural effusions, slightly (unknown) (no (unknown) (unknown) Mediastinum, (units (u nknown) date) heart, and unknown) esophagus: No hiatal hernia. Left chest wall pulse (unknown) (no (unknown) (unknown) Grsv-ku-vtqnzcfg (units (unknown) date) , unknown) (unknown) (no [...] nown) date) unknown) (unknown) (no (unknown) (unknown) [id number] (units (unkno wn) date) unknown) (unknown) (no [...] (unknown) (unknown) : 1935 (units (unknown) date) Acct:[id number] unknown) (unknown) (no (unknown) (unknown) Data collected (units (unknown) date) from: Patient and unknown) and patient's library helper as well as ER (unknown) (no (unknown) [...] date) Signs: unknown) (unknown) (no (unknown) (unknown) [facility] (units (unknown) date) [address] unknown) [place] [address] (unknown) (no (unknown) (unknown) Lab Data (units [...] (unknown) Lymph # (Auto) (units (unknown) date) (9135-9125) /uL unknown) (unknown) (no (unknown) (unknown) Lymph # (Auto) (units (unknown) date) 400 L (9868-6917) unknown) /uL (unknown) (no (unknown) (unknown) Lymph [...] date) Wheelchair unknown) (unknown) (no (unknown) (unknown) [place] # (Auto) (units ( unknown) date) (0-900) /uL unknown) (unknown) (no (unknown) (unknown) [place] # (Auto) (units ( unknown) date) 900 (0-900) /uL unknown) (unknown) (no (unknown) (unknown) [place] % (Auto) (units ( unknown) date) (3-14) % unknown) (unknown) (no (unknown) (unknown) [place] % (Auto) (units ( unknown) date) 9.4 [...] Neut # (Auto) (units ( unknown) date) (9794-1201) /uL unknown) (unknown) (no (unknown) (unknown) Neut # (Auto) (units ( unknown) date) [address] unknown) (1254-7161) /uL (unknown) (no (unknown) (unknown) Neut % [...] (4.5-11.0) unknown) X103/uL (unknown) (no (unknown) (unknown) [facility] (units (unknown) date) ER for evaluation [...] (units (unk nown) date) strong equal unknown) survey chief 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 (unknown) (no (unknown) (unknown) [...] with (units (unk nown) date) patient's unknown) library helper and he was concern for patient's welfare [...] nown) date) unknown) (unknown) (no (unknown) (unknown) [id number] (units (unkno wn) date) unknown) (unknown) (no [...] (unknown) (unknown) : 1935 (units (unknown) date) Acct:[id number] unknown) (unknown) (no (unknown) (unknown) Data collected (units (unknown) date) from: Patient and unknown) and patient's library helper as well as ER (unknown) (no (unknown) [...] date) Signs: unknown) (unknown) (no (unknown) (unknown) [facility] (units (unknown) date) [address] unknown) [place] [address] (unknown) (no (unknown) (unknown) Lab Data (units [...] (unknown) Lymph # (Auto) (units (unknown) date) (7035-3844) /uL unknown) (unknown) (no (unknown) (unknown) Lymph # (Auto) (units (unknown) date) 400 L (0190-0271) unknown) /uL (unknown) (no (unknown) (unknown) Lymph [...] date) Wheelchair unknown) (unknown) (no (unknown) (unknown) [place] # (Auto) (units ( unknown) date) (0-900) /uL unknown) (unknown) (no (unknown) (unknown) [place] # (Auto) (units ( unknown) date) 900 (0-900) /uL unknown) (unknown) (no (unknown) (unknown) [place] % (Auto) (units ( unknown) date) (3-14) % unknown) (unknown) (no (unknown) (unknown) [place] % (Auto) (units ( unknown) date) 9.4 [...] Neut # (Auto) (units ( unknown) date) (3905-9309) /uL unknown) (unknown) (no (unknown) (unknown) Neut # (Auto) (units ( unknown) date) 8[address] H unknown) (6994-0253) /uL (unknown) (no (unknown) (unknown) Neut % [...] (4.5-11.0) unknown) X103/uL (unknown) (no (unknown) (unknown) [facility] (units (unknown) date) ER for evaluation [...] (units (unk nown) date) strong equal unknown) survey chief 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 (unknown) (no (unknown) (unknown) [...] with (units (unk nown) date) patient's unknown) library helper and he was concern for patient's welfare [...] nown) date) unknown) (unknown) (no (unknown) (unknown) [id number] (units (unkno wn) date) unknown) (unknown) (no [...] wn) date) unknown) (unknown) (no (unknown) (unknown) [address] [place] [address] (units (unknown) date) unknown) (unknown) (no (unknown) [...] (unknown) (unknown) Accession Number: (units (unknown) date) [id number] ?? unknown) (unknown) (no (unknown) (unknown) Accession Number: (units (unknown) date) [id number] ?? unknown) (unknown) (no (unknown) (unknown) Accession Number: (units (unknown) date) [id number] ?? unknown) (unknown) (no (unknown) (unknown) Acct:[id number] (units (unknown) date) unknown) (unknown) (no (unknown) [...] (unknown) T[place]LOR Moreno (units ( unknown) date) [address] unknown) (unknown) (no (unknown) (unknown) Approved by: [...] (unknown) (unknown) COMPARISON:? (units (u nknown) date) [facility], unknown) CR, XR CHEST 1V, 06/16/2022, 12:43. [...] (unknown) (unknown) : 1935 (units (unknown) date) Acct:[id number] unknown) (unknown) (no (unknown) (unknown) : 1935 (units (unknown) date) unknown) (unknown) (no (unknown) (unknown) Data collected (units (unknown) date) from: Patient and unknown) and patient's library helper as well as ER (unknown) (no (unknown) [...] date) Signs: unknown) (unknown) (no (unknown) (unknown) [facility] (units (unknown) date) [address] unknown) [place] [address] (unknown) (no (unknown) (unknown) [facility] (units (unknown) date) unknown) (unknown) (no (unknown) [...] (units (unkn own) date) pleura:? Bilateral unknown) lvbu-ot-vfliruxo pleural effusions, slightly (unknown) (no (unknown) (unknown) Lungs and pleura:? (units (unknown) date) Low lung volumes.? unknown) Possible mild right and retrocardiac basal (unknown) (no (unknown) (unknown) Lymph # (Auto) (units (unknown) date) (6694-4126) /uL unknown) (unknown) (no (unknown) (unknown) Lymph # (Auto) (units (unknown) date) 400 L (7419-1151) unknown) /uL (unknown) (no (unknown) (unknown) Lymph [...] date) unknown) (unknown) (no (unknown) (unknown) MR#: [id number] (units (unknown) date) unknown) (unknown) (no (unknown) [...] unknown) Recorded Confirmed (unknown) (no (unknown) (unknown) Besw-lm-trtfpiai, (units (unknown) date) unknown) (unknown) (no (unknown) (unknown) Mode of arrival: (units (unknown) date) Wheelchair unknown) (unknown) (no (unknown) (unknown) [place] # (Auto) (units ( unknown) date) (0-900) /uL unknown) (unknown) (no (unknown) (unknown) [place] # (Auto) 900 (units (unknown) date) (0-900) /uL unknown) (unknown) (no (unknown) (unknown) [place] % (Auto) (units ( unknown) date) (3-14) % unknown) (unknown) (no (unknown) (unknown) [place] % (Auto) 9.4 (units (unknown) date) (3-14) [...] Neut # (Auto) (units ( unknown) date) (3093-2301) /uL unknown) (unknown) (no (unknown) (unknown) Neut # (Auto) (units ( unknown) date) 8[address] H (8738-5685) unknown) /uL (unknown) (no (unknown) (unknown) Neut [...] (4.5-11.0) X103/uL unknown) (unknown) (no (unknown) (unknown) [facility] (units (unknown) date) ER for evaluation [...] hands with strong (units (unknown) date) equal survey chief unknown) 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) library helper and he was concern for patient's welfare [...] nown) date) unknown) (unknown) (no (unknown) (unknown) [id number] (units (unkno wn) date) unknown) (unknown) (no [...] date) unknown) (unknown) (no (unknown) (unknown) [address] [place] [address] (units (unknown) date) unknown) (unknown) (no (unknown) [...] (unknown) (unknown) Accession Number: (units (unknown) date) [id number] ?? unknown) (unknown) (no (unknown) (unknown) Accession Number: (units (unknown) date) [id number] ?? unknown) (unknown) (no (unknown) (unknown) Accession Number: (units (unknown) date) [id number] ?? unknown) (unknown) (no (unknown) (unknown) Acct:[id number] (units (unknown) date) unknown) (unknown) (no (unknown) [...] Date / Time (unknown) (no (unknown) (unknown) [employer] (units ( unknown) date) [address] unknown) (unknown) (no (unknown) (unknown) Approved by: [...] (unknown) (unknown) COMPARISON:? (units (u nknown) date) [facility], unknown) CR, XR CHEST 1V, 06/16/2022, 12:43. [...] (unknown) (unknown) : 1935 (units (unknown) date) Acct:[id number] unknown) (unknown) (no (unknown) (unknown) : 1935 (units (unknown) date) unknown) (unknown) (no (unknown) (unknown) Data collected (units (unknown) date) from: Patient and unknown) and patient's library helper as well as ER (unknown) (no (unknown) [...] date) Signs: unknown) (unknown) (no (unknown) (unknown) [facility] (units (unknown) date) [address] unknown) [place] [address] (unknown) (no (unknown) (unknown) [facility] (units (unknown) date) unknown) (unknown) (no (unknown) [...] (units (unkn own) date) pleura:? Bilateral unknown) xwee-xs-xvetywgk pleural effusions, slightly (unknown) (no (unknown) (unknown) Lungs and pleura:? (units (unknown) date) Low lung volumes.? unknown) Possible mild right and retrocardiac basal (unknown) (no (unknown) (unknown) Lymph # (Auto) (units (unknown) date) (4367-6863) /uL unknown) (unknown) (no (unknown) (unknown) Lymph # (Auto) (units (unknown) date) 400 L (0621-1034) unknown) /uL (unknown) (no (unknown) (unknown) Lymph [...] date) unknown) (unknown) (no (unknown) (unknown) MR#: [id number] (units (unknown) date) unknown) (unknown) (no (unknown) [...] unknown) Recorded Confirmed (unknown) (no (unknown) (unknown) Jyuv-js-zsfynjkx, (units (unknown) date) unknown) (unknown) (no (unknown) (unknown) Mode of arrival: (units (unknown) date) Wheelchair unknown) (unknown) (no (unknown) (unknown) [place] # (Auto) (units ( unknown) date) (0-900) /uL unknown) (unknown) (no (unknown) (unknown) [place] # (Auto) 900 (units (unknown) date) (0-900) /uL unknown) (unknown) (no (unknown) (unknown) [place] % (Auto) (units ( unknown) date) (3-14) % unknown) (unknown) (no (unknown) (unknown) [place] % (Auto) 9.4 (units (unknown) date) (3-14) [...] Neut # (Auto) (units ( unknown) date) (6453-4418) /uL unknown) (unknown) (no (unknown) (unknown) Neut # (Auto) (units ( unknown) date) 8200 H (6433-3417) unknown) /uL (unknown) (no (unknown) (unknown) Neut [...] (4.5-11.0) X103/uL unknown) (unknown) (no (unknown) (unknown) [facility] (units (unknown) date) ER for evaluation [...] hands with strong (units (unknown) date) equal survey chief unknown) 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) library helper and he was concern for patient's welfare [...] (unknown) date) unknown) (unknown) (no (unknown) (unknown) [id number] (units (unkno wn) date) unknown) (unknown) (no [...] (unknown) (unknown) : 1935 (units (unknown) date) Acct:[id number] unknown) (unknown) (no (unknown) (unknown) Date Patient [...] date) (RT-PCR) unknown) (unknown) (no (unknown) (unknown) [facility] (units (unknown) date) [address] unknown) [place] [address] (unknown) (no (unknown) (unknown) Laboratory (units (unk [...] wn) date) unknown) (unknown) (no (unknown) (unknown) [place] # (Auto) (units ( unknown) date) 900 unknown) (unknown) (no (unknown) (unknown) [place] # (Auto) (units ( unknown) date) unknown) (unknown) (no (unknown) (unknown) [place] % (Auto) (units ( unknown) date) 9.4 unknown) (unknown) (no (unknown) (unknown) [place] % (Auto) (units ( unknown) date) unknown) [...] (units (unkn own) date) Hawa Michael unknown) BUILDING SERVICES TECHNICIAN-BC (unknown) (no (unknown) (unknown) Pulse Oximetry (units [...] (unknown) Ur Specific (units (un known) date) [place] 1.020 unknown) (unknown) (no (unknown) (unknown) Ur Specific (units (un known) date) [place] unknown) (unknown) (no (unknown) (unknown) Ur Squamous [...] nown) date) unknown) (unknown) (no (unknown) (unknown) [id number] (units (unkno wn) date) unknown) (unknown) (no (unknown) (unknown) 06/16/22 (units (unkno wn) date) unknown) (unknown) (no (unknown) (unknown) 1. Multiple (units (un known) date) ill-defined unknown) hypoattenuating mass lesions throughout the liver. The (unknown) (no (unknown) (unknown) [address] (units (unknown) date) unknown) (unknown) (no (unknown) (unknown) 2. Numerous small (units (unknown) date) hypoattenuating unknown) lesions throughout the spleen are also (unknown) (no (unknown) (unknown) ABDOMEN: (units (unkno wn) date) unknown) (unknown) (no (unknown) (unknown) Abdominal Nodes: (units (unknown) date) No retroperitoneal unknown) or mesenteric adenopathy by size criteria. (unknown) (no (unknown) (unknown) Accession Number: (units (unknown) date) [id number] unknown) (unknown) (no (unknown) (unknown) Adrenal Glands: (units (unknown) date) No adrenal unknown) nodules. (unknown) (no (unknown) (unknown) After the (units (unkn own) date) administration of unknown) IV contrast, axial sections were acquired from the (unknown) (no (unknown) (unknown) Age/Sex: 86 / M (units (unknown) date) Date of Service: unknown) (unknown) (no (unknown) (unknown) [place], [place] (units ( unknown) date) [address] unknown) (unknown) (no (unknown) (unknown) Approved by: [...] (unknown) (unknown) : 1935 (units (unknown) date) Acct:[id number] unknown) (unknown) (no (unknown) (unknown) Dictated by: [...] date) Excellent. unknown) (unknown) (no (unknown) (unknown) [facility] (units (unknown) date) unknown) (unknown) (no (unknown) [...] (unknown) date) unknown) (unknown) (no (unknown) (unknown) [id number] (units (unkno wn) date) unknown) (unknown) (no [...] (unknown) (unknown) : 1935 (units (unknown) date) Acct:[id number] unknown) (unknown) (no (unknown) (unknown) Date Patient [...] date) (RT-PCR) unknown) (unknown) (no (unknown) (unknown) [facility] (units (unknown) date) [address] [place] [address] unknown) [place] [address] (unknown) (no (unknown) (unknown) Laboratory (units (unk [...] wn) date) unknown) (unknown) (no (unknown) (unknown) [place] # (Auto) (units ( unknown) date) 900 unknown) (unknown) (no (unknown) (unknown) [place] # (Auto) (units ( unknown) date) unknown) (unknown) (no (unknown) (unknown) [place] % (Auto) (units ( unknown) date) 9.4 unknown) (unknown) (no (unknown) (unknown) [place] % (Auto) (units ( unknown) date) unknown) [...] (units (unkn own) date) Hawa Michael unknown) BUILDING SERVICES TECHNICIAN-BC (unknown) (no (unknown) (unknown) Pulse Oximetry (units [...] (unknown) Ur Specific (units (un known) date) [place] 1.020 unknown) (unknown) (no (unknown) (unknown) Ur Specific (units (un known) date) [place] unknown) (unknown) (no (unknown) (unknown) Ur Squamous [...] (unknown) date) unknown) (unknown) (no (unknown) (unknown) [id number] (units (unkno wn) date) unknown) (unknown) (no [...] (unknown) (unknown) : 1935 (units (unknown) date) Acct:[id number] unknown) (unknown) (no (unknown) (unknown) Date Patient [...] date) (RT-PCR) unknown) (unknown) (no (unknown) (unknown) [facility] (units (unknown) date) [address] unknown) [place] [address] (unknown) (no (unknown) (unknown) Laboratory (units (unk [...] 06/16/22 unknown) @ 21:27 by Hawa Michael [facility]) (unknown) (no (unknown) (unknown) Medication (units (unk nown) date) Instructions unknown) Recorded Confirmed Type (unknown) (no (unknown) (unknown) Meds (units (unkno wn) date) unknown) (unknown) (no (unknown) (unknown) [place] # (Auto) (units ( unknown) date) 900 unknown) (unknown) (no (unknown) (unknown) [place] # (Auto) (units ( unknown) date) unknown) (unknown) (no (unknown) (unknown) [place] % (Auto) (units ( unknown) date) 9.4 unknown) (unknown) (no (unknown) (unknown) [place] % (Auto) (units ( unknown) date) unknown) [...] (units (unkn own) date) Hawa Michael unknown) BUILDING SERVICES TECHNICIAN-BC (unknown) (no (unknown) (unknown) Psych: Patient (units [...] 06/16/22 unknown) @ 21:27 by Hawa Michael [facility]) (unknown) (no (unknown) (unknown) Temperature 98.1 [...] (unknown) Ur Specific (units (un known) date) [place] 1.020 unknown) (unknown) (no (unknown) (unknown) Ur Specific (units (un known) date) [place] unknown) (unknown) (no (unknown) (unknown) Ur Squamous [...] (unknown) (no date) (unknown) (unknown) 1.8 ng/ml 12606 -7 (unknown) (no date) (unknown) (unknown) 1.8 ng/ml (unkn own) (unknown) (no date) (unknown) (unknown) Negative (units (unkn own) unknown) (unknown) (no date) (unknown) (unknown) Negative (units 08560 -1 unknown) (unknown) (no date) (unknown) (unknown) Negative (units 89113 -3 unknown) (unknown) (no date) (unknown) (unknown) [...] (unknown) date) unknown) (unknown) (no (unknown) (unknown) [id number] (units (unkno wn) date) unknown) (unknown) (no [...] (unknown) (unknown) : 1935 (units (unknown) date) Acct:[id number] unknown) (unknown) (no (unknown) (unknown) Date Patient [...] date) (RT-PCR) unknown) (unknown) (no (unknown) (unknown) [facility] (units (unknown) date) [address] unknown) [place] [address] (unknown) (no (unknown) (unknown) Laboratory (units (unk [...] wn) date) unknown) (unknown) (no (unknown) (unknown) [place] # (Auto) (units ( unknown) date) 900 unknown) (unknown) (no (unknown) (unknown) [place] # (Auto) (units ( unknown) date) unknown) (unknown) (no (unknown) (unknown) [place] % (Auto) (units ( unknown) date) 9.4 unknown) (unknown) (no (unknown) (unknown) [place] % (Auto) (units ( unknown) date) unknown) [...] (units (unkn own) date) Hawa Michael unknown) BUILDING SERVICES TECHNICIAN-BC (unknown) (no (unknown) (unknown) Psych: Patient (units [...] (unknown) Ur Specific (units (un known) date) [place] 1.020 unknown) (unknown) (no (unknown) (unknown) Ur Specific (units (un known) date) [place] unknown) (unknown) (no (unknown) (unknown) Ur Squamous [...] nown) date) unknown) (unknown) (no (unknown) (unknown) [id number] (units (unkno wn) date) unknown) (unknown) (no (unknown) (unknown) 06/17/22 (units (unkno wn) date) unknown) (unknown) (no (unknown) (unknown) [address] [place] [address] (units (unknown) date) unknown) (unknown) (no (unknown) (unknown) Accession Number: (units (unknown) date) [id number] unknown) (unknown) (no (unknown) (unknown) Age/Sex: 86 / M (units (unknown) date) Date of Service: unknown) (unknown) (no (unknown) (unknown) [place], [place] (units ( unknown) date) [address] unknown) (unknown) (no (unknown) (unknown) Approved by: Feliberto (units (unknown) date) Azar Mendoza on unknown) 06/17/2022 at 10:08 (unknown) (no (unknown) (unknown) Biliary ducts: (units (unknown) date) Intrahepatic bile unknown) ducts are non-dilated. Extrahepatic bile (unknown) (no (unknown) (unknown) COMPARISON: (units (un known) date) [facility], unknown) CT, CT ABDOMEN PELVIS W CON, 06/16/2022, 21:22. (unknown) (no (unknown) (unknown) CT 06/16/2019 (units ( unknown) date) unknown) (unknown) (no (unknown) (unknown) : 1935 (units (unknown) date) Acct:[id number] unknown) (unknown) (no (unknown) (unknown) Diffusely (units [...] LIVER unknown) METS (unknown) (no (unknown) (unknown) [facility] (units (unknown) date) unknown) (unknown) (no (unknown) [...] (unknown) date) unknown) (unknown) (no (unknown) (unknown) [id number] (units (unkno wn) date) unknown) (unknown) (no [...] (unknown) (unknown) : 1935 (units (unknown) date) Acct:[id number] unknown) (unknown) (no (unknown) (unknown) Date Patient [...] date) (RT-PCR) unknown) (unknown) (no (unknown) (unknown) [facility] (units (unknown) date) [address] unknown) [place] [address] (unknown) (no (unknown) (unknown) Laboratory (units (unk [...] wn) date) unknown) (unknown) (no (unknown) (unknown) [place] # (Auto) (units ( unknown) date) 900 unknown) (unknown) (no (unknown) (unknown) [place] # (Auto) (units ( unknown) date) unknown) (unknown) (no (unknown) (unknown) [place] % (Auto) (units ( unknown) date) 9.4 unknown) (unknown) (no (unknown) (unknown) [place] % (Auto) (units ( unknown) date) unknown) [...] (units (unkn own) date) Hawa Michael unknown) BUILDING SERVICES TECHNICIAN-BC (unknown) (no (unknown) (unknown) Psych: Patient (units [...] (unknown) Ur Specific (units (un known) date) [place] 1.020 unknown) (unknown) (no (unknown) (unknown) Ur Specific (units (un known) date) [place] unknown) (unknown) (no (unknown) (unknown) Ur Squamous [...] (unknown) date) unknown) (unknown) (no (unknown) (unknown) [id number] (units (unkno wn) date) unknown) (unknown) (no [...] (unknown) (unknown) : 1935 (units (unknown) date) Acct:[id number] unknown) (unknown) (no (unknown) (unknown) Date Patient [...] 06/17/22 unknown) @ 00:47 by Hawa Michael [facility]) (unknown) (no (unknown) (unknown) Father (units [...] date) (RT-PCR) unknown) (unknown) (no (unknown) (unknown) [facility] (units (unknown) date) [address] unknown) [place] [address] (unknown) (no (unknown) (unknown) Laboratory (units (unk [...] 06/17/22 unknown) @ 00:55 by Hawa Michael [facility]) (unknown) (no (unknown) (unknown) Medication (units (unk nown) date) Instructions unknown) Recorded Confirmed Type (unknown) (no (unknown) (unknown) Meds (units (unkno wn) date) unknown) (unknown) (no (unknown) (unknown) [place] # (Auto) 900 (units (unknown) date) unknown) (unknown) (no (unknown) (unknown) [place] # (Auto) (units ( unknown) date) unknown) (unknown) (no (unknown) (unknown) [place] % (Auto) 9.4 (units (unknown) date) unknown) (unknown) (no (unknown) (unknown) [place] % (Auto) (units ( unknown) date) unknown) [...] (unknown) (unknown) Patient: (units (unkno wn) date) Yoesph Cardoso unknown) MR#: [id number] (unknown) (no (unknown) [...] (units (unkn own) date) Hawa Michael unknown) BUILDING SERVICES TECHNICIAN-BC (unknown) (no (unknown) (unknown) Psych: Patient (units [...] 06/16/22 unknown) @ 21:27 by Hawa Michael [facility] (unknown) (no (unknown) (unknown) Temperature 98.1 (units [...] (unknown) Ur Specific (units (un known) date) [place] 1.020 unknown) (unknown) (no (unknown) (unknown) Ur Specific (units (un known) date) [place] unknown) (unknown) (no (unknown) (unknown) Ur Squamous [...] unknown) pending, transaminitis (unknown) (no (unknown) (unknown) [id number] (units (unkno wn) date) unknown) (unknown) (no [...] (unknown) (unknown) : 1935 (units (unknown) date) Acct:[id number] unknown) (unknown) (no (unknown) (unknown) Date Patient [...] 06/17/22 unknown) @ 00:47 by Hawa Michael [facility]) (unknown) (no (unknown) (unknown) Father (units [...] date) (RT-PCR) unknown) (unknown) (no (unknown) (unknown) [facility] (units (unknown) date) [address] unknown) [place] [address] (unknown) (no (unknown) (unknown) Laboratory (units (unk [...] wn) date) unknown) (unknown) (no (unknown) (unknown) [place] # (Auto) 900 (units (unknown) date) unknown) (unknown) (no (unknown) (unknown) [place] # (Auto) (units ( unknown) date) unknown) (unknown) (no (unknown) (unknown) [place] % (Auto) 9.4 (units (unknown) date) unknown) (unknown) (no (unknown) (unknown) [place] % (Auto) (units ( unknown) date) unknown) [...] (units (unkn own) date) Hawa Michael unknown) BUILDING SERVICES TECHNICIAN-BC (unknown) (no (unknown) (unknown) Psych: Patient (units [...] 06/16/22 unknown) @ 21:27 by Hawa Michael [facility]) (unknown) (no (unknown) (unknown) Temperature 98.1 [...] (unknown) Ur Specific (units (un known) date) [place] 1.020 unknown) (unknown) (no (unknown) (unknown) Ur Specific (units (un known) date) [place] unknown) (unknown) (no (unknown) (unknown) Ur Squamous [...] unknown) pending, transaminitis (unknown) (no (unknown) (unknown) [id number] (units (unkno wn) date) unknown) (unknown) (no [...] (unknown) (unknown) : 1935 (units (unknown) date) Acct:[id number] unknown) (unknown) (no (unknown) (unknown) Date Patient [...] 06/17/22 unknown) @ 00:47 by Hawa Michael BUILDING SERVICES TECHNICIANJames) (unknown) (no (unknown) (unknown) Father (units (unknown) [...] date) (RT-PCR) unknown) (unknown) (no (unknown) (unknown) [facility] (units (unknown) date) [address] unknown) [place] [address] (unknown) (no (unknown) (unknown) Laboratory (units (unk [...] 06/17/22 unknown) @ 00:55 by Hawa Michael [facility]) (unknown) (no (unknown) (unknown) Medication (units (unk nown) date) Instructions unknown) Recorded Confirmed Type (unknown) (no (unknown) (unknown) Meds (units (unkno wn) date) unknown) (unknown) (no (unknown) (unknown) [place] # (Auto) 900 (units (unknown) date) unknown) (unknown) (no (unknown) (unknown) [place] # (Auto) (units ( unknown) date) unknown) (unknown) (no (unknown) (unknown) [place] % (Auto) 9.4 (units (unknown) date) unknown) (unknown) (no (unknown) (unknown) [place] % (Auto) (units ( unknown) date) unknown) [...] (units (unkn own) date) Hawa Michael unknown) BUILDING SERVICES TECHNICIAN-BC (unknown) (no (unknown) (unknown) Psych: Patient (units [...] (unknown) Ur Specific (units (un known) date) [place] 1.020 unknown) (unknown) (no (unknown) (unknown) Ur Specific (units (un known) date) [place] unknown) (unknown) (no (unknown) (unknown) Ur Squamous [...] unknown) pending, transaminitis (unknown) (no (unknown) (unknown) [id number] (units (unkno wn) date) unknown) (unknown) (no [...] (unknown) (unknown) : 1935 (units (unknown) date) Acct:[id number] unknown) (unknown) (no (unknown) (unknown) Date Patient [...] date) (RT-PCR) unknown) (unknown) (no (unknown) (unknown) [facility] (units (unknown) date) [address] [place] [address] unknown) [place] [address] (unknown) (no (unknown) (unknown) Laboratory (units (unk [...] (Updated 06/17/22 unknown) @ 00:55 [facility] (unknown) (no (unknown) (unknown) Medication (units (unk nown) date) Instructions unknown) Recorded Confirmed Type (unknown) (no (unknown) (unknown) Meds (units (unkno wn) date) unknown) (unknown) (no (unknown) (unknown) [place] # (Auto) 900 (units (unknown) date) unknown) (unknown) (no (unknown) (unknown) [place] # (Auto) (units ( unknown) date) unknown) (unknown) (no (unknown) (unknown) [place] % (Auto) 9.4 (units (unknown) date) unknown) (unknown) (no (unknown) (unknown) [place] % (Auto) (units ( unknown) date) unknown) [...] (units (unkn own) date) Hawa Michael unknown) BUILDING SERVICES TECHNICIAN-BC (unknown) (no (unknown) (unknown) Psych: Patient (units [...] (unknown) Ur Specific (units (un known) date) [place] 1.020 unknown) (unknown) (no (unknown) (unknown) Ur Specific (units (un known) date) [place] unknown) (unknown) (no (unknown) (unknown) Ur Squamous [...] unknown) pending, transaminitis (unknown) (no (unknown) (unknown) [id number] (units (unkno wn) date) unknown) (unknown) (no [...] (unknown) (unknown) : 1935 (units (unknown) date) Acct:[id number] unknown) (unknown) (no (unknown) (unknown) Date Patient [...] 06/17/22 unknown) @ 00:47 by Hawa Michael [facility]) (unknown) (no (unknown) (unknown) Father (units [...] date) (RT-PCR) unknown) (unknown) (no (unknown) (unknown) [facility] (units (unknown) date) [address] unknown) [place] [address] (unknown) (no (unknown) (unknown) Laboratory (units (unk [...] wn) date) unknown) (unknown) (no (unknown) (unknown) [place] # (Auto) 900 (units (unknown) date) unknown) (unknown) (no (unknown) (unknown) [place] # (Auto) (units ( unknown) date) unknown) (unknown) (no (unknown) (unknown) [place] % (Auto) 9.4 (units (unknown) date) unknown) (unknown) (no (unknown) (unknown) [place] % (Auto) (units ( unknown) date) unknown) [...] (units (unkn own) date) Hawa Michael unknown) BUILDING SERVICES TECHNICIAN-BC (unknown) (no (unknown) (unknown) Psych: Patient (units [...] 06/16/22 unknown) @ 21:27 by Hawa Michael [facility]) (unknown) (no (unknown) (unknown) Temperature 98.1 [...] (unknown) Ur Specific (units (un known) date) [place] 1.020 unknown) (unknown) (no (unknown) (unknown) Ur Specific (units (un known) date) [place] unknown) (unknown) (no (unknown) (unknown) Ur Squamous [...] 3+, leuks, RBC (unknown) (no (unknown) (unknown) [id number] (units (unkno wn) date) unknown) (unknown) (no [...] (unknown) (unknown) : 1935 (units (unknown) date) Acct:[id number] unknown) (unknown) (no (unknown) (unknown) Date Patient [...] 06/17/22 unknown) @ 00:47 by Hawa Michael [facility]) (unknown) (no (unknown) (unknown) Father (units [...] date) (RT-PCR) unknown) (unknown) (no (unknown) (unknown) [facility] (units (unknown) date) [address] unknown) [place] [address] (unknown) (no (unknown) (unknown) Laboratory (units (unk [...] wn) date) unknown) (unknown) (no (unknown) (unknown) [place] # (Auto) 900 (units (unknown) date) unknown) (unknown) (no (unknown) (unknown) [place] # (Auto) (units ( unknown) date) unknown) (unknown) (no (unknown) (unknown) [place] % (Auto) 9.4 (units (unknown) date) unknown) (unknown) (no (unknown) (unknown) [place] % (Auto) (units ( unknown) date) unknown) [...] (units (unkn own) date) Hawa Michael unknown) BUILDING SERVICES TECHNICIAN-BC (unknown) (no (unknown) (unknown) Psych: Patient (units [...] 06/16/22 unknown) @ 21:27 by Hawa Michael [facility]) (unknown) (no (unknown) (unknown) Temperature 98.1 [...] (unknown) Ur Specific (units (un known) date) [place] 1.020 unknown) (unknown) (no (unknown) (unknown) Ur Specific (units (un known) date) [place] unknown) (unknown) (no (unknown) (unknown) Ur Squamous [...] 3+, leuks, RBC (unknown) (no (unknown) (unknown) [id number] (units (unkno wn) date) unknown) (unknown) (no [...] (unknown) (unknown) : 1935 (units (unknown) date) Acct:[id number] unknown) (unknown) (no (unknown) (unknown) Date Patient [...] date) (RT-PCR) unknown) (unknown) (no (unknown) (unknown) [facility] (units (unknown) date) [address] unknown) [place] [address] (unknown) (no (unknown) (unknown) Laboratory (units (unk [...] wn) date) unknown) (unknown) (no (unknown) (unknown) [place] # (Auto) 900 (units (unknown) date) unknown) (unknown) (no (unknown) (unknown) [place] # (Auto) (units ( unknown) date) unknown) (unknown) (no (unknown) (unknown) [place] % (Auto) 9.4 (units (unknown) date) unknown) (unknown) (no (unknown) (unknown) [place] % (Auto) (units ( unknown) date) unknown) [...] (units (unkn own) date) Hawa Michael unknown) BUILDING SERVICES TECHNICIAN-BC (unknown) (no (unknown) (unknown) Psych: Patient (units [...] 06/16/22 unknown) @ 21:27 by Hawa Michael [facility]) (unknown) (no (unknown) (unknown) Temperature 98.1 [...] (unknown) Ur Specific (units (un known) date) [place] 1.020 unknown) (unknown) (no (unknown) (unknown) Ur Specific (units (un known) date) [place] unknown) (unknown) (no (unknown) (unknown) Ur Squamous [...] 3+, leuks, RBC (unknown) (no (unknown) (unknown) [id number] (units (unkno wn) date) unknown) (unknown) (no [...] (unknown) (unknown) : 1935 (units (unknown) date) Acct:[id number] unknown) (unknown) (no (unknown) (unknown) DVT/VTE (units [...] 06/17/22 unknown) @ 00:47 by Hawa Michael [facility]) (unknown) (no (unknown) (unknown) Father (units [...] date) (RT-PCR) unknown) (unknown) (no (unknown) (unknown) [facility] (units (unknown) date) [address] unknown) [place] [address] (unknown) (no (unknown) (unknown) Laboratory (units (unk [...] 06/17/22 unknown) @ 00:55 by Hawa Michael [facility]) (unknown) (no (unknown) (unknown) Medication (units (unk nown) date) Instructions unknown) Recorded Confirmed Type (unknown) (no (unknown) (unknown) Meds (units (unkno wn) date) unknown) (unknown) (no (unknown) (unknown) [place] # (Auto) 900 (units (unknown) date) unknown) (unknown) (no (unknown) (unknown) [place] # (Auto) (units ( unknown) date) unknown) (unknown) (no (unknown) (unknown) [place] % (Auto) 9.4 (units (unknown) date) unknown) (unknown) (no (unknown) (unknown) [place] % (Auto) (units ( unknown) date) unknown) [...] (units (unkn own) date) Hawa Michael unknown) BUILDING SERVICES TECHNICIAN-BC (unknown) (no (unknown) (unknown) Psych: Patient (units [...] (unknown) Ur Specific (units (un known) date) [place] 1.020 unknown) (unknown) (no (unknown) (unknown) Ur Specific (units (un known) date) [place] unknown) (unknown) (no (unknown) (unknown) Ur Squamous [...] (unknown) -consult for (units (u nknown) date) PT/OT/PBX INSTALLER-social unknown) work: Concerned patient is not safe [...] 3+, leuks, RBC (unknown) (no (unknown) (unknown) [id number] (units (unkno wn) date) unknown) (unknown) (no [...] (unknown) (unknown) : 1935 (units (unknown) date) Acct:[id number] unknown) (unknown) (no (unknown) (unknown) DVT/VTE (units [...] 06/17/22 unknown) @ 00:47 by Hawa Michael [facility]) (unknown) (no (unknown) (unknown) Father (units [...] date) (RT-PCR) unknown) (unknown) (no (unknown) (unknown) [facility] (units (unknown) date) [address] unknown) [place] [address] (unknown) (no (unknown) (unknown) Laboratory (units (unk [...] (Updated 06/17/22 unknown) @ 00:55 [facility] (unknown) (no (unknown) (unknown) Medication (units (unk nown) date) Instructions unknown) Recorded Confirmed Type (unknown) (no (unknown) (unknown) Meds (units (unkno wn) date) unknown) (unknown) (no (unknown) (unknown) [place] # (Auto) 900 (units (unknown) date) unknown) (unknown) (no (unknown) (unknown) [place] # (Auto) (units ( unknown) date) unknown) (unknown) (no (unknown) (unknown) [place] % (Auto) 9.4 (units (unknown) date) unknown) (unknown) (no (unknown) (unknown) [place] % (Auto) (units ( unknown) date) unknown) [...] (units (unkn own) date) Hawa Michael unknown) BUILDING SERVICES TECHNICIAN-BC (unknown) (no (unknown) (unknown) Psych: Patient (units [...] wn) date) By:<Electronically unknown) signed by Hawa [facility] Alec> (unknown) (no (unknown) (unknown) Skin: [...] 06/16/22 unknown) @ 21:27 by Hawa Michael [facility]) (unknown) (no (unknown) (unknown) Surrogate (units [...] (unknown) Ur Specific (units (un known) date) [place] 1.020 unknown) (unknown) (no (unknown) (unknown) Ur Specific (units (un known) date) [place] unknown) (unknown) (no (unknown) (unknown) Ur Squamous [...] consult (units (unknown) date) evaluations by unknown) PT/OT/PBX INSTALLER. (unknown) (no (unknown) (unknown) wheezes, rhonchi, (units [...] (unknown) -consult for (units (u nknown) date) PT/OT/PBX INSTALLER-social unknown) work: Concerned patient is not safe [...] 3+, leuks, RBC (unknown) (no (unknown) (unknown) [id number] (units (unkno wn) date) unknown) (unknown) (no [...] (unknown) (unknown) : 1935 (units (unknown) date) Acct:[id number] unknown) (unknown) (no (unknown) (unknown) DVT/VTE (units [...] 06/17/22 unknown) @ 00:47 by Hawa Michael [facility]) (unknown) (no (unknown) (unknown) Father (units [...] date) (RT-PCR) unknown) (unknown) (no (unknown) (unknown) [facility] (units (unknown) date) [address] unknown) [place] [address] (unknown) (no (unknown) (unknown) Laboratory (units (unk [...] 06/17/22 unknown) @ 00:55 by Hawa Michael [facility]) (unknown) (no (unknown) (unknown) Medication (units (unk nown) date) Instructions unknown) Recorded Confirmed Type (unknown) (no (unknown) (unknown) Meds (units (unkno wn) date) unknown) (unknown) (no (unknown) (unknown) [place] # (Auto) 900 (units (unknown) date) unknown) (unknown) (no (unknown) (unknown) [place] # (Auto) (units ( unknown) date) unknown) (unknown) (no (unknown) (unknown) [place] % (Auto) 9.4 (units (unknown) date) unknown) (unknown) (no (unknown) (unknown) [place] % (Auto) (units ( unknown) date) unknown) [...] (units (unkn own) date) Hawa Michael unknown) BUILDING SERVICES TECHNICIAN-BC (unknown) (no (unknown) (unknown) Psych: Patient (units [...] wn) date) By:<Electronically unknown) signed by [facility]> (unknown) (no (unknown) (unknown) Skin: Warm [...] (unkn own) date) decision maker: unknown) Aletha Israelode (unknown) (no (unknown) (unknown) Temperature 98.1 [...] (unknown) Ur Specific (units (un known) date) [place] 1.020 unknown) (unknown) (no (unknown) (unknown) Ur Specific (units (un known) date) [place] unknown) (unknown) (no (unknown) (unknown) Ur Squamous [...] 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 [...] consult (units (unknown) date) evaluations by unknown) PT/OT/PBX INSTALLER. (unknown) (no (unknown) (unknown) wheezes, rhonchi, (units [...] (unknown) date) unknown) (unknown) (no (unknown) (unknown) [id number] (units (unkno wn) date) unknown) (unknown) (no [...] date) Phosphatase unknown) (unknown) (no (unknown) (unknown) [place] given (units (unknown) date) there history of [...] (unknown) (unknown) : 1935 (units (unknown) date) Acct:[id number] unknown) (unknown) (no (unknown) (unknown) Date of Service: (units (unknown) date) 06/16/22 unknown) (unknown) (no (unknown) (unknown) Deep Vein (units (unkn own) date) Thrombosis/Pulmona unknown) ry Embolism Present on Admission: No (unknown) (no (unknown) (unknown) Diagnosed at (units (u nknown) date) [facility] unknown) [facility]. Urine culture (unknown) (no (unknown) [...] 06/17/22 unknown) @ 00:47 by Hawa Michael [facility]) (unknown) (no (unknown) (unknown) Father (units [...] (unknown) date) Dr. Weathers at the unknown) [facility]. He did not (unknown) (no (unknown) [...] (unknown) date) unknown) (unknown) (no (unknown) (unknown) [facility] (units (unknown) date) [address] unknown) [place] [address] (unknown) (no (unknown) (unknown) Laboratory (units (unk [...] by CASEY Crystal) (unknown) (no (unknown) (unknown) [place] # (Auto) (units ( unknown) date) [address] unknown) (unknown) (no (unknown) (unknown) [place] # (Auto) (units ( unknown) date) unknown) (unknown) (no (unknown) (unknown) [place] % (Auto) (units ( unknown) date) 13.3 unknown) (unknown) (no (unknown) (unknown) [place] % (Auto) (units ( unknown) date) unknown) [...] 06/16/22 unknown) @ 21:27 by Hawa Michael [facility]) (unknown) (no (unknown) (unknown) Suspect this (units (u nknown) date) reflected SIRS unknown) rather than sepsis. However, he does have evidence (unknown) (no (unknown) (unknown) Temperature 96.3 (units (unknown) date) F L unknown) (unknown) (no (unknown) (unknown) They did they (units ( unknown) date) might prefer to unknown) proceed with care at the [facility] (unknown) (no (unknown) (unknown) Time Spent With [...] (unknown) Ur Specific (units (un known) date) [place] 1.020 unknown) (unknown) (no (unknown) (unknown) Ur Specific (units (un known) date) [place] unknown) (unknown) (no (unknown) (unknown) Ur Squamous [...] ( unknown) date) inflammatory unknown) pulmonary opacities. [id number]-[id number] (unknown) (no (unknown) (unknown) is status post [...] and follows with (unknown) (no (unknown) (unknown) vhyox-ylkcxat-cui (units (unknown) date) n-left pleural unknown) effusions. [...] but no (unknown) (no (unknown) (unknown) the straddle bug operator (units (unknown) date) regularly. unknown) (unknown) (no [...] (unknown) date) unknown) (unknown) (no (unknown) (unknown) [id number] (units (unkno wn) date) unknown) (unknown) (no [...] (unknown) (unknown) : 1935 (units (unknown) date) Acct:[id number] unknown) (unknown) (no (unknown) (unknown) Date of [...] 06/17/22 unknown) @ 00:47 by Hawa Michael [facility]) (unknown) (no (unknown) (unknown) Father (units [...] (unknown) date) Dr. Weathers at the unknown) [facility] He did not (unknown) (no (unknown) (unknown) [...] (unknown) date) unknown) (unknown) (no (unknown) (unknown) [facility] (units (unknown) date) [address] [place] [address] unknown) [place] [address] (unknown) (no (unknown) (unknown) Laboratory (units (unk [...] 06/17/22 unknown) @ 00:55 by Hawa Michael [facility]) (unknown) (no (unknown) (unknown) [place] # (Auto) (units ( unknown) date) [address] unknown) (unknown) (no (unknown) (unknown) [place] # (Auto) (units ( unknown) date) unknown) (unknown) (no (unknown) (unknown) Lamoure % (Auto) (units ( unknown) date) 15.8 H unknown) (unknown) (no (unknown) (unknown) Lamoure % (Auto) (units ( unknown) date) unknown) [...] 06/16/22 unknown) @ 21:27 by Hawa Michael [facility]) (unknown) (no (unknown) (unknown) Temperature 96.8 [...] (units (unknown) date) serial f/u w/a unknown) straddle bug operator at [facility] (unknown) (no (unknown) (unknown) alcohol intake: (units [...] ( unknown) date) inflammatory unknown) pulmonary opacities.? Aamx-ry-izaxswwn (unknown) (no (unknown) (unknown) liver and spleen [...] and follows with (unknown) (no (unknown) (unknown) mgfxw-ptkooyh-amm (units (unknown) date) n-left pleural unknown) effusions.? There is additional note of the (unknown) (no (unknown) (unknown) scalp (units (unkno wn) date) approximately 2 unknown) years ago.? He describes having had a 7 an inch incision.? (unknown) (no (unknown) (unknown) the straddle bug operator (units (unknown) date) regularly. unknown) (unknown) (no [...] (unknown) date) unknown) (unknown) (no (unknown) (unknown) [id number] (units (unkno wn) date) unknown) (unknown) (no [...] excursions symmetric, CTAB (unknown) (no (unknown) (unknown) GEOSPATIAL IMAGE ANALYST disease. (units (u nknown) date) unknown) (unknown) [...] (unknown) (unknown) : 1935 (units (unknown) date) Acct:[id number] unknown) (unknown) (no (unknown) (unknown) Date of Service: (units (unknown) date) 06/16/22 unknown) (unknown) (no (unknown) (unknown) Deep Vein (units (unkn own) date) Thrombosis/Pulmona unknown) ry Embolism Present on Admission: No (unknown) (no (unknown) (unknown) Diagnosed at (units (u nknown) date) [facility] Urine culture (unknown) (no (unknown) [...] (unknown) date) unknown) (unknown) (no (unknown) (unknown) [facility] (units (unknown) date) [address] unknown) [place] [address] (unknown) (no (unknown) (unknown) Laboratory (units (unk [...] 06/17/22 unknown) @ 00:55 by Hawa Michael [facility]) (unknown) (no (unknown) (unknown) Lamoure # (Auto) (units ( unknown) date) 1100 H unknown) (unknown) (no (unknown) (unknown) [place]re # (Auto) (units ( unknown) date) unknown) (unknown) (no (unknown) (unknown) Lam[place]re % (Auto) (units ( unknown) date) 15.8 H unknown) (unknown) (no (unknown) (unknown) Lam[place]re % (Auto) (units ( unknown) date) unknown) [...] 06/16/22 unknown) @ 21:27 by Hawa Michael [facility]) (unknown) (no (unknown) (unknown) Suspect this [...] (units (unknown) date) serial f/u w/a unknown) straddle bug operator (Dr. Reeder) at [facility] (unknown) (no (unknown) (unknown) ago.? He now [...] ( unknown) date) inflammatory unknown) pulmonary opacities.? Nuus-wt-ayfoonwh (unknown) (no (unknown) (unknown) intervention or (units [...] biopsy and potential (unknown) (no (unknown) (unknown) zuuow-jzzelhe-ssv (units (unknown) date) n-left pleural unknown) effusions.? [...] (unknown) date) unknown) (unknown) (no (unknown) (unknown) [id number] (units (unkno wn) date) unknown) (unknown) (no [...] excursions symmetric, CTAB (unknown) (no (unknown) (unknown) GEOSPATIAL IMAGE ANALYST disease. (units (u nknown) date) unknown) (unknown) [...] (unknown) (unknown) : 1935 (units (unknown) date) Acct:[id number] unknown) (unknown) (no (unknown) (unknown) Date of Service: (units (unknown) date) 06/16/22 unknown) (unknown) (no (unknown) (unknown) Deep Vein (units (unkn own) date) Thrombosis/Pulmona unknown) ry Embolism Present on Admission: No (unknown) (no (unknown) (unknown) Diagnosed at (units (u nknown) date) [facility] Urine culture (unknown) (no (unknown) [...] 06/17/22 unknown) @ 00:47 by Hawa Michael [facility]) (unknown) (no (unknown) (unknown) Father (units [...] this patient's care (unknown) (no (unknown) (unknown) [facility] (units (unknown) date) [address] unknown) [place] [address] (unknown) (no (unknown) (unknown) Laboratory (units (unk [...] by JOSE Crystal) (unknown) (no (unknown) (unknown) Lamoure # (Auto) (units ( unknown) date) 1000 H unknown) (unknown) (no (unknown) (unknown) [place] # (Auto) (units ( unknown) date) unknown) (unknown) (no (unknown) (unknown) Lam[place]re % (Auto) (units ( unknown) date) 15.4 H unknown) (unknown) (no (unknown) (unknown) Lam[place]re % (Auto) (units ( unknown) date) unknown) [...] 06/16/22 unknown) @ 21:27 by Hawa Michael [facility] (unknown) (no (unknown) (unknown) Suspect this (units [...] nown) date) unknown) (unknown) (no (unknown) (unknown) [id number] (units (unkno wn) date) unknown) (unknown) (no (unknown) (unknown) 06/21/22 (units (unkno wn) date) unknown) (unknown) (no (unknown) (unknown) [address] [place] [address] (units (unknown) date) unknown) (unknown) (no (unknown) (unknown) Accession (units (unkn own) date) Number: unknown) [id number] (unknown) (no (unknown) (unknown) Age/Sex: 86 / M (units (unknown) date) Date of Service: unknown) (unknown) (no (unknown) (unknown) [place] (units ( unknown) date) [address] unknown) (unknown) (no (unknown) (unknown) Approved by: (units (u nknown) date) Johnathan Lane unknown) Azar on 06/21/2022 at 15:07 (unknown) (no (unknown) (unknown) Biopsy site: (units (u nknown) date) Posterior right unknown) lobe of the liver (unknown) (no (unknown) (unknown) COMPARISON: (units (un known) date) [facility], unknown) CT, CT ABDOMEN PELVIS W CON, 06/16/2022, 21:22. (unknown) (no (unknown) (unknown) CT Scan Report (units (unknown) date) unknown) (unknown) (no (unknown) (unknown) CT guidance, a (units (unknown) date) core biopsy unknown) trocar and needle set was advanced to the biopsy (unknown) (no (unknown) (unknown) Complications: (units (unknown) date) None. unknown) (unknown) (no (unknown) (unknown) : 1935 (units (unknown) date) Acct:[id number] unknown) (unknown) (no (unknown) (unknown) Dictated by: [...] history of melanoma (unknown) (no (unknown) (unknown) [facility] (units (unknown) date) unknown) (unknown) (no (unknown) [...] brought to the CT unknown) suite and social work manager spiral CT imaging was (unknown) (no (unknown) [...] Dr. Arianna Reeder, (unknown) (no (unknown) (unknown) [id number] (units (unkno wn) date) unknown) (unknown) (no [...] (unknown) (unknown) : 1935 (units (unknown) date) Acct:[id number] unknown) (unknown) (no (unknown) (unknown) Date Patient (units (u nknown) date) Seen: 06/19/22 unknown) (unknown) (no (unknown) (unknown) Date of Service: (units (unknown) date) 06/16/22 unknown) (unknown) (no (unknown) (unknown) Deep Vein (units (unkn own) date) Thrombosis/Pulmona unknown) ry Embolism Present on Admission: No (unknown) (no (unknown) (unknown) Diagnosed at (units (u nknown) date) [facility] Urine culture (unknown) (no (unknown) [...] 06/17/22 unknown) @ 00:47 by Hawa Michael [facility]) (unknown) (no (unknown) (unknown) Father (units [...] (unknown) date) unknown) (unknown) (no (unknown) (unknown) [facility] (units (unknown) date) [address] unknown) [place] [address] (unknown) (no (unknown) (unknown) Laboratory (units (unk [...] 06/17/22 unknown) @ 00:55 by Hawa Michael [facility]) (unknown) (no (unknown) (unknown) Lam[place]re # (Auto) (units ( unknown) date) 1000 H unknown) (unknown) (no (unknown) (unknown) [place] # (Auto) (units ( unknown) date) unknown) (unknown) (no (unknown) (unknown) [place]re % (Auto) (units ( unknown) date) 15.4 H unknown) (unknown) (no (unknown) (unknown) [place]re % (Auto) (units ( unknown) date) unknown) [...] 06/16/22 unknown) @ 21:27 by Hawa Michael [facility]) (unknown) (no (unknown) (unknown) Temperature 97.0 [...] (units (unknown) date) signed by Matt unknownShahab Swartz MD> (unknown) (no (unknown) (unknown) (Flovent HFA) (units ( unknown) date) unknown) (unknown) (no (unknown) (unknown) [id number] (units (unkno wn) date) unknown) (unknown) (no [...] date) unknown) (unknown) (no (unknown) (unknown) [address] [place] [address] (units (unknown) date) unknown) (unknown) (no (unknown) [...] (unknown) (unknown) Accession Number: (units (unknown) date) [id number] ?? unknown) (unknown) (no (unknown) (unknown) Accession Number: (units (unknown) date) [id number] ?? unknown) (unknown) (no (unknown) (unknown) Accession Number: (units (unknown) date) [id number] ?? unknown) (unknown) (no (unknown) (unknown) Acct:[id number] (units (unknown) date) unknown) (unknown) (no (unknown) [...] PO DAILY DAVID (unknown) (no (unknown) (unknown) [employer] [place] (units ( unknown) date) [address] unknown) (unknown) (no (unknown) (unknown) Apixaban (units [...] (unknown) (unknown) COMPARISON:? (units (u nknown) date) [facility], unknown) CR, XR CHEST 1V, 06/16/2022, 12:43. [...] (unknown) (unknown) : 1935 (units (unknown) date) Acct:[id number] unknown) (unknown) (no (unknown) (unknown) : 1935 (units (unknown) date) unknown) (unknown) (no (unknown) (unknown) Data collected (units (unknown) date) from: Patient and unknown) and patient's library helper as well as ER (unknown) (no (unknown) [...] date) Signs: unknown) (unknown) (no (unknown) (unknown) [facility] (units (unknown) date) [address] unknown) [place] [address] (unknown) (no (unknown) (unknown) [facility] (units (unknown) date) unknown) (unknown) (no (unknown) [...] (units (unkn own) date) pleura:? Bilateral unknown) qnbi-bx-fixlcfai pleural effusions, slightly (unknown) (no (unknown) (unknown) Lungs and pleura:? (units (unknown) date) Low lung volumes.? unknown) Possible mild right and retrocardiac basal (unknown) (no (unknown) (unknown) Lymph # (Auto) (units (unknown) date) (8822-6779) /uL unknown) (unknown) (no (unknown) (unknown) Lymph # (Auto) (units (unknown) date) 400 L (3272-3262) unknown) /uL (unknown) (no (unknown) (unknown) Lymph [...] date) unknown) (unknown) (no (unknown) (unknown) MR#: [id number] (units (unknown) date) unknown) (unknown) (no (unknown) [...] 06/17/22 unknown) @ 00:55 by Hawa Michael [facility]) (unknown) (no (unknown) (unknown) Medical decision (units (unknown) date) making narrative: unknown) (unknown) (no (unknown) (unknown) Medical records (units (unknown) date) reviewed: ER unknown) visits from a few days ago (unknown) (no (unknown) (unknown) Medication (units (unk nown) date) Instructions unknown) Recorded Confirmed (unknown) (no (unknown) (unknown) Hzrl-rm-vkdpiira, (units (unknown) date) unknown) (unknown) (no (unknown) (unknown) Mode of arrival: (units (unknown) date) Wheelchair unknown) (unknown) (no (unknown) (unknown) Lam[place]re # (Auto) (units ( unknown) date) (0-900) /uL unknown) (unknown) (no (unknown) (unknown) [place] # (Auto) 900 (units (unknown) date) (0-900) /uL unknown) (unknown) (no (unknown) (unknown) [place] % (Auto) (units ( unknown) date) (3-14) % unknown) (unknown) (no (unknown) (unknown) [place] % (Auto) 9.4 (units (unknown) date) (3-14) [...] Neut # (Auto) (units ( unknown) date) (9820-9890) /uL unknown) (unknown) (no (unknown) (unknown) Neut # (Auto) (units ( unknown) date) 8200 H (6873-3177) unknown) /uL (unknown) (no (unknown) (unknown) Neut [...] (4.5-11.0) X103/uL unknown) (unknown) (no (unknown) (unknown) [facility] (units (unknown) date) ER for evaluation [...] hands with strong (units (unknown) date) equal survey chief unknown) 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) library helper and he was concern for patient's welfare [...] a follow-up ultrasound-guided (unknown) (no (unknown) (unknown) [id number] (units (unkno wn) date) unknown) (unknown) (no (unknown) (unknown) 06/20/22 (units (unkno wn) date) unknown) (unknown) (no (unknown) (unknown) [address] (units (unknown) date) unknown) (unknown) (no (unknown) (unknown) 1st rib, (units (unkno wn) date) unknown) (unknown) (no (unknown) (unknown) Accession (units (unkn own) date) Number: unknown) [id number] (unknown) (no (unknown) (unknown) Additional (units (unk nown) date) findings: unknown) (unknown) (no (unknown) (unknown) After the (units (unkn own) date) administration of unknown) intravenous contrast, 3.0 mm axial sections (unknown) (no (unknown) (unknown) Age/Sex: 86 / M (units (unknown) date) Date of Service: unknown) (unknown) (no (unknown) (unknown) [place] (units ( unknown) date) [address] unknown) (unknown) (no (unknown) (unknown) Approved by: [...] (unknown) (unknown) COMPARISON: (units (un known) date) [facility], unknown) CT, CT CHEST W [facility], 06/16/2022, 14:03[place] (unknown) (no (unknown) (unknown) CT HEAD/BRAIN WO (units (unknown) date) CON, 06/16/2022, unknown) 14:03. (unknown) (no (unknown) (unknown) CT Scan Report (units (unknown) date) unknown) (unknown) (no (unknown) (unknown) : 1935 (units (unknown) date) Acct:[id number] unknown) (unknown) (no (unknown) (unknown) Dictated by: [...] date) Excellent. unknown) (unknown) (no (unknown) (unknown) [facility] (units (unknown) date) unknown) (unknown) (no (unknown) [...] (unknown) date) unknown) (unknown) (no (unknown) (unknown) [id number] (units (unkno wn) date) unknown) (unknown) (no [...] (unknown) (unknown) : 1935 (units (unknown) date) Acct:[id number] unknown) (unknown) (no (unknown) (unknown) Date Patient [...] (Reviewed 06/17/22 unknown) @ 00:47 [facility] (unknown) (no (unknown) (unknown) Father (units (unknown) [...] this patient's care (unknown) (no (unknown) (unknown) [facility] (units (unknown) date) [address] unknown) [place] [address] (unknown) (no (unknown) (unknown) Laboratory (units (unk [...] by JOSE Crystal) (unknown) (no (unknown) (unknown) [place]re # (Auto) (units ( unknown) date) 1000 H unknown) (unknown) (no (unknown) (unknown) [place]re % (Auto) (units ( unknown) date) 14.7 [...] 06/16/22 unknown) @ 21:27 by Hawa Michael [facility]) (unknown) (no (unknown) (unknown) Temperature 97.1 [...] Reeder and updated (unknown) (no (unknown) (unknown) [id number] (units (unkno wn) date) unknown) (unknown) (no [...] (unknown) (unknown) : 1935 (units (unknown) date) Acct:[id number] unknown) (unknown) (no (unknown) (unknown) Date Patient (units (u nknown) date) Seen: 06/20/22 unknown) (unknown) (no (unknown) (unknown) Date of Service: (units (unknown) date) 06/16/22 unknown) (unknown) (no (unknown) (unknown) Deep Vein (units (unkn own) date) Thrombosis/Pulmona unknown) ry Embolism Present on Admission: No (unknown) (no (unknown) (unknown) Diagnosed at (units (u nknown) date) [facility] unknown) [facility] Emergency Department.? Urine culture (unknown) (no (unknown) [...] 06/17/22 unknown) @ 00:47 by Hawa Michael [facility]) (unknown) (no (unknown) (unknown) Father (units [...] (unknown) date) unknown) (unknown) (no (unknown) (unknown) [facility] (units (unknown) date) [address] unknown) [place] [address] (unknown) (no (unknown) (unknown) Laboratory (units (unk [...] by JOSE Crystal) (unknown) (no (unknown) (unknown) [place]re # (Auto) (units ( unknown) date) 1000 H unknown) (unknown) (no (unknown) (unknown) [place] % (Auto) (units ( unknown) date) 14.7 [...] 06/16/22 unknown) @ 21:27 by Hawa Michael [facility]) (unknown) (no (unknown) (unknown) Temperature 97.1 [...] over the last few (units (unknown) date) months.?Content Management Consultant unknown) consulted. (unknown) (no (unknown) (unknown) today; [...] (unknown) (no date) (unknown) (unknown) Comment: (units 98692 -1 unknown) (unknown) (no date) (unknown) (unknown) Comment: (units (unkn own) unknown) Result panel 268 (unknown) (no (unknown) (unknown) (no value) (units (unk nown) date) unknown) (unknown) (no (unknown) (unknown) (past 8 hours): (units (unknown) date) unknown) (unknown) (no (unknown) (unknown) [id number] (units (unkno wn) date) unknown) (unknown) (no [...] (unknown) (unknown) : 1935 (units (unknown) date) Acct:[id number] unknown) (unknown) (no (unknown) (unknown) Date Patient [...] (unknown) date) unknown) (unknown) (no (unknown) (unknown) [facility] (units (unknown) date) [address] unknown) [place] [address] (unknown) (no (unknown) (unknown) Labs (units (unkno [...] Reeder and updated (unknown) (no (unknown) (unknown) [id number] (units (unkno wn) date) unknown) (unknown) (no [...] (unknown) (unknown) : 1935 (units (unknown) date) Acct:[id number] unknown) (unknown) (no (unknown) (unknown) Date Patient (units (u nknown) date) Seen: 06/20/22 unknown) (unknown) (no (unknown) (unknown) Date of Service: (units (unknown) date) 06/16/22 unknown) (unknown) (no (unknown) (unknown) Deep Vein (units (unkn own) date) Thrombosis/Pulmona unknown) ry Embolism Present on Admission: No (unknown) (no (unknown) (unknown) Diagnosed at (units (u nknown) date) [facility] Urine culture (unknown) (no (unknown) [...] (unknown) date) unknown) (unknown) (no (unknown) (unknown) [facility] (units (unknown) date) [address] unknown) [place] [address] (unknown) (no (unknown) (unknown) Labs (units (unkno [...] 06/16/22 unknown) @ 21:27 by Hawa Michael [facility] (unknown) (no (unknown) (unknown) Temperature 97.1 (units [...] over the last few (units (unknown) date) months.?Content Management Consultant unknown) consulted. (unknown) (no (unknown) (unknown) today. [...] in 1 (unknown) (no (unknown) (unknown) [address] (units (unknown) date) unknown) (unknown) (no (unknown) (unknown) [address] [place] [address] (units (unknown) date) [address], unknown) [place], [place] [id number] (unknown) (no (unknown) (unknown) [id number] (units (unkno wn) date) unknown) (unknown) (no (unknown) (unknown) [place], [place] (units ( unknown) date) [address] unknown) (unknown) (no (unknown) (unknown) As part [...] description: . unknown) (unknown) (no (unknown) (unknown) [facility] (units (unknown) date) unknown) (unknown) (no (unknown) (unknown) [facility] Accession (units ( unknown) date) Number: unknown) [id number] (unknown) (no (unknown) (unknown) LIVER TISSUE: (units ( unknown) date) unknown) (unknown) (no (unknown) (unknown) [facility] (units (unknown) date) [place] Cytology unknown) (unknown) (no (unknown) (unknown) Liver, Needle (units ( unknown) date) Core Biopsies: unknown) (unknown) (no (unknown) (unknown) MD Donovan Mckenzie (units (unknown) date) Phone: unknown) [phone] (unknown) (no (unknown) (unknown) (units (unknown) date) Dictating Dr: unknown) Tommy Molina MD (unknown) (no (unknown) (unknown) MRV 06/23/2022 (units (unknown) date) [address] Local unknown) (unknown) (no (unknown) (unknown) Material (units (unkno wn) date) submitted: . unknown) (unknown) (no (unknown) (unknown) Tommy Szymanski (units (unkn own) date) MD Jesse, PhD, unknown) Pathologist (unknown) (no (unknown) (unknown) NPI- [id number] (units (unknown) date) unknown) (unknown) (no (unknown) [...] (unknown) date) unknown) (unknown) (no (unknown) (unknown) [id number] (units (unkno wn) date) unknown) (unknown) (no [...] unknown) (unknown) (no (unknown) (unknown) Consult to PBX INSTALLER - (units (unknown) date) Damage Inside Adjuster unknown) Routine (unknown) (no (unknown) (unknown) Consult [...] (unknown) (unknown) : 1935 (units (unknown) date) Acct:[id number] unknown) (unknown) (no (unknown) (unknown) Date Patient [...] 06/17/22 unknown) @ 00:47 by Hawa Michael [facility]) (unknown) (no (unknown) (unknown) Father (units [...] twice a day (unknown) (no (unknown) (unknown) [facility] (units (unknown) date) [address] unknown) [place] [address] (unknown) (no (unknown) (unknown) Labs (units (unkno wn) date) unknown) (unknown) (no (unknown) (unknown) Lucien Lan (units (unknown) date) MD Yudi [Primary unknown) Care Provider] (unknown) (no (unknown) (unknown) PBX INSTALLER Consult (units (un known) date) needed for:: unknown) [facility] Need (unknown) (no (unknown) (unknown) Medical History (units (unknown) date) (Updated 06/17/22 unknown) @ 00:55 [facility] (unknown) (no (unknown) (unknown) Mother (units (unknown) [...] (units (unknown) date) Set up HH unknown) RN/PT/OT/SPARERIBS TRIMMER for discharge home (unknown) (no (unknown) (unknown) [...] 06/16/22 unknown) @ 21:27 by Hawa Michael [facility]) (unknown) (no (unknown) (unknown) Upon admit [...] Reeder and updated (unknown) (no (unknown) (unknown) [id number] (units (unkno wn) date) unknown) (unknown) (no [...] unknown) (unknown) (no (unknown) (unknown) Consult to PBX INSTALLER - (units (unknown) date) Damage Inside Adjuster unknown) Routine (unknown) (no (unknown) (unknown) Consult [...] (unknown) (unknown) : 1935 (units (unknown) date) Acct:[id number] unknown) (unknown) (no (unknown) (unknown) Date Patient [...] (unknown) Diagnosed at (units (u nknown) date) [facility] unknown) [facility] Emergency Department.? Urine culture (unknown) (no (unknown) [...] 06/17/22 unknown) @ 00:47 by Hawa Michael [facility]) (unknown) (no (unknown) (unknown) Father (units [...] are negative to (unknown) (no (unknown) (unknown) [facility] (units (unknown) date) [address] [place] [address] unknown) [place] [address] (unknown) (no (unknown) (unknown) Labs (units (unkno wn) date) unknown) (unknown) (no (unknown) (unknown) Lucien Lan (units (unknown) date) MD Yudi [Primary unknown) Care Provider] (unknown) (no (unknown) (unknown) MNA 10 (at risk (units (unknown) date) for malnutrition), unknown) diet recall suggesting inadequate (unknown) (no (unknown) (unknown) PBX INSTALLER Consult (units (un known) date) needed for:: [...] (units (unknown) date) Set up HH unknown) RN/PT/OT/SPARERIBS TRIMMER for discharge home (unknown) (no (unknown) (unknown) [...] over the last few (units (unknown) date) months.?Content Management Consultant unknown) consulted. (unknown) (no (unknown) (unknown) pacemaker [...] (unknown) date) unknown) (unknown) (no (unknown) (unknown) [id number] (units (unkno wn) date) unknown) (unknown) (no [...] unknown) (unknown) (no (unknown) (unknown) Consult to PBX INSTALLER - (units (unknown) date) Damage Inside Adjuster unknown) Routine (unknown) (no (unknown) (unknown) Consult [...] (unknown) (unknown) : 1935 (units (unknown) date) Acct:[id number] unknown) (unknown) (no (unknown) (unknown) Date Patient [...] (Reviewed 06/17/22 unknown) @ 00:47 [facility] (unknown) (no (unknown) (unknown) Father (units (unknown) [...] twice a day (unknown) (no (unknown) (unknown) [facility] (units (unknown) date) [address] unknown) [place] [address] (unknown) (no (unknown) (unknown) Labs (units (unkno wn) date) unknown) (unknown) (no (unknown) (unknown) Lucien Lan (units (unknown) date) MD Yudi [Primary unknown) Care Provider] (unknown) (no (unknown) (unknown) MNA 10 (at risk (units (unknown) date) for malnutrition), unknown) diet recall suggesting inadequate (unknown) (no (unknown) (unknown) PBX INSTALLER Consult (units (un known) date) needed for:: unknown) [facility] [facility] Need (unknown) (no (unknown) (unknown) Medical History (units (unknown) date) (Updated 06/17/22 unknown) @ 00:55 by Hawa Michael [facility]) (unknown) (no (unknown) (unknown) Mother (units [...] (units (unknown) date) Set up HH unknown) RN/PT/OT/SPARERIBS TRIMMER for discharge home (unknown) (no (unknown) (unknown) [...] 06/16/22 unknown) @ 21:27 by Hawa Michael [facility]) (unknown) (no (unknown) (unknown) This is [...] (unknown) date) unknown) (unknown) (no (unknown) (unknown) [id number] (units (unkno wn) date) unknown) (unknown) (no [...] unknown) (unknown) (no (unknown) (unknown) Consult to PBX INSTALLER - (units (unknown) date) Damage Inside Adjuster unknown) Routine (unknown) (no (unknown) (unknown) Consult [...] (unknown) (unknown) : 1935 (units (unknown) date) Acct:[id number] unknown) (unknown) (no (unknown) (unknown) Date Patient [...] (Reviewed 06/17/22 unknown) @ 00:47 [facility] (unknown) (no (unknown) (unknown) Father (units (unknown) [...] twice a day (unknown) (no (unknown) (unknown) [facility] (units (unknown) date) [address] unknown) [place] [address] (unknown) (no (unknown) (unknown) Labs (units (unkno wn) date) unknown) (unknown) (no (unknown) (unknown) Lucien Lan (units (unknown) date) MD Yudi [Primary unknown) Care Provider] (unknown) (no (unknown) (unknown) MNA 10 (at risk (units (unknown) date) for malnutrition), unknown) diet recall suggesting inadequate (unknown) (no (unknown) (unknown) PBX INSTALLER Consult (units (un known) date) needed for:: unknown) [facility] Need (unknown) (no (unknown) (unknown) Medical History (units (unknown) date) (Updated 06/17/22 unknown) @ 00:55 by Hawa Michael [facility]) (unknown) (no (unknown) (unknown) Mother (units [...] (units (unknown) date) Set up HH unknown) RN/PT/OT/SPARERIBS TRIMMER for discharge home (unknown) (no (unknown) (unknown) [...] 06/16/22 unknown) @ 21:27 by Hawa Michael [facility]) (unknown) (no (unknown) (unknown) This is [...] facility 2022-06-16 00:00 Never smoked tobacco (finding) [facility] 2022-06-16 00:00 Smoker (finding) [facility] Vital Signs date measurement value units 2022-06-16 [...]
[2022-07-08 10:56] LABS: BASOPHILS # (AUTO) 0.1 10^3/uL (0.0-0.1); BASOPHILS % (AUTO) 0.8 %; EOSINOPHILS % (AUTO) 0.4 %; HCT - HEMATOCRIT 40.7 % (42.0-52.0); HGB - HEMOGLOBIN 12.8 g/dL (14.0-18.0); LYMPHOCYTES # (AUTO) 0.3 10^3/uL (1.5-3.5); LYMPHOCYTES % (AUTO) 4.2 %; MEAN CORPUSCULAR HEMOGLOBIN 30.2 pg (27.0-31.0); MEAN CORPUSCULAR HGB CONC 31.4 g/dL (32.0-36.0); MONOCYTES # (AUTO) 0.5 10^3/uL (0.0-1.0); MONOCYTES % (AUTO) 7.1 %; NEUTROPHILS # (AUTO) 6.7 10^3/uL (1.5-6.6); NEUTROPHILS % (AUTO) 86.8 %; PLT - PLATELET COUNT 210 10^3/uL (130-450); RED BLOOD COUNT 4.24 10^6/uL (4.70-6.10); RED CELL DISTRIBUTION WIDTH 16.5 % (12.0-15.0); WHITE BLOOD COUNT 7.7 x10^3/uL (4.8-10.8)
[2022-07-08 11:03] LABS: INR 1.6 (0.8-1.2); PT - PROTHROMBIN TIME 17.4 secs (9.9-12.6)
[2022-07-08 11:05] LABS: GLUCOSE, URINE (UA) NEGATIVE (NEGATIVE); KETONES,URINE (UA) NEGATIVE (NEGATIVE); LEUKOCYTE ESTERASE, URINE TRACE (NEGATIVE); NITRITE,URINE POSITIVE (NEGATIVE); OCCULT BLOOD,URINE NEGATIVE (NEGATIVE); PH,URINE 6.5 PH (5.0-7.5); PROTEIN,URINE 30 mg/dL (NEGATIVE); UROBILINOGEN,URINE 1 (NORMAL) E.U./dL (NORMAL)
[2022-07-08 11:07] LABS: BILIRUBIN,URINE NEGATIVE (NEGATIVE); CLARITY,URINE CLEAR (CLEAR); ICTOTEST,URINE NEGATIVE
[2022-07-08 11:10] LABS: PARTIAL THROMBOPLASTIN TIME 53.5 secs (24.9-33.3)
[2022-07-08 11:21] LABS: LACTIC ACID, VENOUS 2.2 mmol/L (0.5-2.2)
[2022-07-08 11:23] LABS: BACTERIA,URINE Few /HPF (None Seen); RBC,URINE 0-5 /HPF (0-5); SQUAMOUS EPITHELIAL CELL,UR NONE SEEN (<= Few)
[2022-07-08 11:29] LABS: ALBUMIN 2.3 g/dL (3.2-5.5); ALBUMIN/GLOBULIN RATIO 0.7 (1.0-2.2); BILIRUBIN,TOTAL 2.4 mg/dL (0.2-1.0); TOTAL PROTEIN 5.5 g/dL (6.7-8.2)
[2022-07-08] MEDS ORDERED: cefTRIAXone 1 GM VIAL IVP STA (11:36)
[2022-07-08] MEDS ORDERED: ONDANSETRON ODT 4 MG TABLET TL PRN (12:01)
[2022-07-08] MEDS ORDERED: ACETAMINOPHEN 325 MG TABLET PO PRN (12:01)
[2022-07-08] MEDS ORDERED: ONDANSETRON 4 MG/2 ML VIAL IVP PRN (12:01)
[2022-07-08] MEDS ORDERED: SODIUM CHLORIDE FLUSH 0.9% 10 ML SYRINGE IVP PRN (12:01)
[2022-07-08] MEDS ORDERED: oxyCODONE 5 MG TABLET PO PRN (12:01)
[2022-07-08] MEDS ORDERED: SODIUM CHLORIDE 0.9% 1,000 ML IV SCH (13:00)
[2022-07-08] MEDS: ENOXAPARIN 40 MG/0.4 ML SYRINGE SUBQ SCH (14:19)
--- NOTE | 2022-07-08 14:59 | PHARMACY PROGRESS NOTE ---
- Best Possible Medication History Admit Date and Time: 07/08/22 1201 Processed by: Pharmacy Medication History completed: Yes Patient Interview: Pt unable to participate Secondary Source(s): Pharmacy records, Insurance records As the person ultimately responsible for medication therapy, providers are able to order a medication from an existing home medication list in [facility] via the "Reconcile Routine" prior to Confirmation of that medication by server support technician. Such practice is discouraged except when the physician, in their clinical judgment, deems that a medical need exists for a medication without regard to previous use.
--- NOTE | 2022-07-08 15:12 | HISTORY & PHYSICAL EXAMINATION ---
Chief Complaint - Chief Complaint Chief Complaint: + blood cx History of Present Illness - Admitted From Admitted From:: ER - History Obtained From Records Reviewed: Yes History obtained from: [facility] [employer], patient's , Dr. Burks Exam Limitations: he is demented - History of Present Illness HPI Comment/Other: He is a gently demented elderly gentleman who still lives with his . His past medical history significant for multiple, multiple recurrent UTIs in the past. He had a prostatectomy in approximately 2002. He had subsequent strictures at the base of his bladder and then ended up having a TUR of the stri cture in 2008. Nevertheless he lives a quite active life. Walked all the time. Occasionally would have intermittent chest pain and he has had a regular Darnell protocol stress test with Dr. Lan in the past that was negative. He did had a nuclear medicine stress test 2009. That was negative for ischemia. Echocardiograms in the past have shown him to have the atrial fibrillation, and a preserved ejection fraction. Mild mitral regurgitation. He has been seen by Dr. Gillette at [facility] cardiology for his cardiology issues. He has sick sinus syndrome with atrial fibrillation. This resulted in a dual-chamber pacemaker. He began having chest pain in late April or early May. This was accompanied by weight loss. A gradual deterioration in energy with increasing fatigue. Sweats at night. And sometimes a 30 pound weight loss is described in the medical record. Dr. Gillette saw him in his office in May. Thought he looked terrible and had him admitted to [facility] approx Jun 16. At [facility] he was initially evaluated as having yet another UTI. But sepsis was ruled out. They looked at his gallbladder because his gallbladder looked "swollen" and his LFTs were elevated. They continued the work-up and they found him to have a broken rib as the cause of his chest pain and multiple lesions to the liver. He underwent a biopsy the day before disch arge on June 23. 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 He has since been seen by Dr. Arianna Lopez at [facility]. He has been started on BRAFtovi and Mektovi since he is BRAF gene positive. He has been taking it every day. In spite of that he is fatigued. He started developing a fever and weakness again (like he did when ambulance was called 06/23/22) and his called an ambulance and had him brought him to the emergency room on July 07. He was unable to give a history himself and the ER doctor had to piece it together from the medical record. The main just of what the ER doctor understood with that the patient was being treated for a UTI. After being evaluated in the emergency room and having relatively normal vital signs, including evaluation for the LFT elevation, the patient was sent home. The patient's blood cultures were positive for E. coli. And as such the patient was brought back to the emergency room again today by ambulance. His white cell count is normal at 7.7. He does not have a fever. He is confused. He does not know why he is here. Very sleepy. The emergency room doctor has contacted us for the E. coli bacteremia. And we will be admitting the patient for IV antibiotics for bacteremia. History - Past Medical History Cardiovascular: reports: Hypertension, High cholesterol, Pulmonary embolism (dx when visiting in [place] , hyperecoag bynum neg. 2009), Atrial fibrillation, Other (pacer last interogated 2021, has 10 yrs left on battery and in afib 99% of time) Respiratory: reports: Asthma Neuro: reports: Dementia Endocrine/Autoimmune: reports: None GI: reports: GERD (w a UMER in 2002), Diverticulitis : reports: Benign prostate hypertrophy (w LUTs, s/p TURP then dilation of stricture then TUR of stricture), Incontinence, Nocturia, Kidney stones, Other (erecctile dysfunction, balanitis) Psych: reports: None Musculoskeletal: reports: Osteoarthritis, Chronic back pain (and neck pain. Does PT in the past for this) Derm: reports: None, Other MRSA Hx?: No - Past Surgical History General: reports: Appendectomy, Colonoscopy, EGD, Other (inguinal hernia repair 2007) Cardiovascular: reports: Pacemaker HEENT: reports: Cataracts Derm: reports: Skin cancer surgery - Family & Social History Family History Comment/Other: unavailable Living arrangement: At home Living Situation: With spouse/s.o. Social History Notes: nonsmoker and o alcohol abuse hx. Lives w . No recreational drug use - Substance History Use: Uses substance without health or social issues: NONE Abuse: Recurrent use of substance despite neg consequences: NONE Dependence: Experiences withdrawal or developed tolerances: NONE - POLST Patient has POLST: No POLST Status: DNR (per his who has advanced directives at home) Meds/Allgy - Home Medications Home Medications: Ambulatory Orders Medication Instructions Recorded Confirmed Fluticasone 44 Mcg [Flovent] 2 puffs INH BID 09/28/18 07/08/22 Amlodipine Besylate [Norvasc] 2.5 mg PO BID 07/08/22 07/08/22 Apixaban [Eliquis] 5 mg PO BID 07/08/22 07/08/22 Gabapentin [Neurontin] 300 mg PO BID 07/08/22 07/08/22 - Allergies Allergies/Adverse Reactions: Allergies Allergy/AdvReac Type Severity Reaction Status Date / Time pneumococcal vaccine Allergy Hives Verified 07/08/22 12:29 [From Reynaldo 13 (PF)] Review of Systems - Constitutional Constitutional: reports: Weight loss (Recent 30 pound weight loss) - Gastrointestinal Gastrointestinal: reports: Constipation - Genitourinary Genitourinary: denies: Dysuria - Musculoskeletal Musculoskeletal: reports: Other ("bottom pain") - Neurological Neurological: reports: Abnormal gait (Shuffling gait) Prior Level of Functionality: shustarted shufflling his walk in april. losing balance. weak. anorexia. uses walker. doesn't drive. In last 3 weeks is now feeding him. Family hired a caregiver for overnight since dc from [facility]. Exam - Vital Signs Vital Signs: Vital Signs x48h Temp Pulse Pulse Resp BP BP Pulse Ox 07/08/22 13:57 96 17 144/55 H 98 07/08/22 13:41 95 17 151/77 H 100 07/08/22 12:00 99 20 157/79 H 07/08/22 11:14 99 16 162/72 H 100 07/08/22 10:48 36.8 C 99 20 163/76 H 100 - Physical Exam General Appearance: positive: No acute distress, Alert Respiratory: positive: No respiratory distress, Breath sounds nml Cardiovascular: positive: Systolic murmur Peripheral Pulses: positive: 1+ Abdomen: positive: Nml bowel sounds. negative: Non-tender, Tenderness Skin: positive: Warm Extremities: positive: Pedal edema (2+ edema). negative: Christopher's sign/cords Neurologic/Psychiatric: positive: Sensation nml Conclusion/Plan - Problem List (1) E coli bacteremia Conclusion/Plan: Pt is an 86 year old returning to the ED and subsequently inpatient for the treatment of his E.coli baceremia via IV abx. The source of this bacteremia could just as easily be from his system based on his extensive history of numerous UTI's, however, patients recent diagnosis of metastatic melanoma cancer causing multiple lesions on his liver leading to increased LFT's and WBC count is more likely than not the cause of his bacteremia. Plan: IV ceftriaxone for 5 days, monitor patients sx during this me. Then, prescribe 14 days of abx PO after discharge. (2) Metastatic melanoma Conclusion/Plan: Patient is currently on Braftovi and Mektovi for the treatment of his metastatic melanoma. He is currently being managed by Dr. Arianna lopez at [facility]. Will inform Dr Lopez about the hospitalization of ecoli bacteremia during his stay here. (3) Elevated LFTs Conclusion/Plan: Pt has worsening LFT's which is more likely than not due to the metastatic cancer to his liver (which has caused multiple lesions of his liver). Will continue to monitor levels as we treat patients ecoli bacteremia. (4) Atrial fibrillation with RVR Conclusion/Plan: Patient has extensive cardiac workup to include stress tests which were negative, and echo's which determined patient does have mild mitral regurgitation and afib with preserved EF. Patient had a dual chamber pacemaker placed which shows that he is afib 99% of the time and ventrally paced about 63% of the time. Will monitor patients vitals accordingly. (5) Chest pain Conclusion/Plan: Patient has extensive cardiac workup to include stress tests which were negative, and echo's which determined patient does have mild mitral regurgitation and afib with preserved EF. Patient had a dual chamber pacemaker placed which shows that he is afib 99% of the time and ventrally paced about 63% of the time. Patient's chest pain has been muddled by the fact that the patient has dementia and forget that he has cancer which has in turn caused a pathological fx of his first rib. Will manage patient's chest pain through the use of pain medication. Patient is currently on tylenol prn. Will monitor pain closely. Qualifiers: Chest pain type: other chest pain Qualified Code(s): R07.89 - Other chest pain; R07.8 - Other chest pain (6) Dementia Conclusion/Plan: Spoke with the patients with Dr. Leilani Rivera over the phone with the fact that the patient is more likely than not having signs of dementia. The news of this dx is sudden and not easily accepted by Mrs. Cardoso, although she has recognized as of late that he has been getting more forgetful as of late. With the patients recent hospitalization over at [facility], patient's kids hired a caregiver to take care of their father as Mrs. Cardoso states herself that she is "not capable of taking care of her " 13/11. Briefly spoke about the end of life care and Mrs. Cardoso states she's never had "that deep a discussion" with the patient but knows that he wishes to be "DNR". Ideally, the plan is to establish/confirm POA/DPOA, care plan and code status. (7) Protein-calorie malnutrition, moderate Conclusion/Plan: On medical record reconciliation, there are multiple mentions of the patient recently loosing 30lb's, having night sweats, a shuffling gait, cachexia, weakn ess, malaise, and decreasing coordination. Patient's recent dx of cancer and dementia along with the fact that the patient has been eating less resulted in a protein-calorie malnutrition. Plan is to incorporate a nutrient rich diet while here receiving care for his ecoli bacteremia. - Lab Results Fish Bones: 07/08/22 10:48 07/08/22 10:48 Core Measures - Anticipated LOS I expect patient to be DC'd or transferred within 96 hours.: Yes - DVT/VTE - Prophylaxis VTE/DVT Prophylaxis med ordered at admit?: Yes
[2022-07-08] MEDS ORDERED: ZINC OXIDE 20% OINT 30 GM TUBE TOP PRN (17:38)
[2022-07-08] MEDS: SODIUM CHLORIDE FLUSH 0.9% 10 ML SYRINGE IVP SCH (18:50)
[2022-07-09] MEDS: SODIUM CHLORIDE FLUSH 0.9% 10 ML SYRINGE IVP SCH ×3 (02:12→20:18)
[2022-07-09 05:12] LABS: BASOPHILS # (AUTO) 0.1 10^3/uL (0.0-0.1); BASOPHILS % (AUTO) 0.9 %; EOSINOPHILS % (AUTO) 0.3 %; HGB - HEMOGLOBIN 10.9 g/dL (14.0-18.0); LYMPHOCYTES # (AUTO) 0.7 10^3/uL (1.5-3.5); LYMPHOCYTES % (AUTO) 10.8 %; MEAN CORPUSCULAR HEMOGLOBIN 29.8 pg (27.0-31.0); MEAN CORPUSCULAR HGB CONC 31.1 g/dL (32.0-36.0); MEAN CORPUSCULAR VOLUME 95.6 fL (80.0-94.0); MEAN PLATELET VOLUME 9.1 fL (7.4-11.4); MONOCYTES # (AUTO) 0.6 10^3/uL (0.0-1.0); NEUTROPHILS % (AUTO) 77.4 %; PLT - PLATELET COUNT 194 10^3/uL (130-450); RED BLOOD COUNT 3.66 10^6/uL (4.70-6.10); RED CELL DISTRIBUTION WIDTH 16.2 % (12.0-15.0); WHITE BLOOD COUNT 6.4 x10^3/uL (4.8-10.8)
[2022-07-09 05:20] LABS: CALCIUM 7.3 mg/dL (8.5-10.3); CREATININE 0.9 mg/dL (0.6-1.2); POTASSIUM 3.4 mmol/L (3.5-5.0)
[2022-07-09] MEDS ORDERED: POTASSIUM CHLORIDE 20 MEQ TABLET PO ONE (08:14)
[2022-07-09] MEDS: ENOXAPARIN 40 MG/0.4 ML SYRINGE SUBQ SCH (09:28)
[2022-07-09] MEDS: cefTRIAXone 1 GM in SODIUM CHLORIDE 0.9% MINIBAG 100 ML IV SCH (09:28)
--- NOTE | 2022-07-09 13:03 | PROVIDER PROGRESS NOTE ---
Subjective - Prog Note Date Prog Note Date: 07/09/22 Prog Note Time: 13:01 Objective - Vital Signs/Intake & Output Vital Signs: Vital Signs x48h Temp Pulse Resp BP Pulse Ox 07/09/22 08:00 36.7 C 71 17 129/55 L 98 Intake & Output: Intake & Output 07/06/22 07/07/22 07/08/22 07/09/22 23:59 23:59 23:59 23:59 Intake Total 1396.667 433.333 Output Total 100 Balance 1296.667 433.333 - Lab Results Fish Bones: 07/09/22 04:48 07/09/22 04:48 Other Labs: Lab Results x24hrs 07/09/22 07/09/22 Range/Units 04:48 04:48 WBC 6.4 (4.8-10.8) x10^3/uL RBC 3.66 L (4.70-6.10) 10^6/uL Hgb 10.9 L (14.0-18.0) g/dL Hct 35.0 L (42.0-52.0) % MCV 95.6 H (80.0-94.0) fL MCH 29.8 (27.0-31.0) pg MCHC 31.1 L (32.0-36.0) g/dL RDW 16.2 H (12.0-15.0) % Plt Count 194 (130-450) 10^3/uL MPV 9.1 (7.4-11.4) fL Neut # (Auto) 5.0 (1.5-6.6) 10^3/uL Lymph # (Auto) 0.7 L (1.5-3.5) 10^3/uL Orange # (Auto) 0.6 (0.0-1.0) 10^3/uL Eos # (Auto) 0.0 (0.0-0.7) 10^3/uL Baso # (Auto) 0.1 (0.0-0.1) 10^3/uL Absolute Nucleated RBC 0.00 x10^3/uL Nucleated RBC % 0.0 /100WBC Sodium 136 (135-145) mmol/L Potassium 3.4 L (3.5-5.0) mmol/L Chloride 105 (101-111) mmol/L Carbon Dioxide 26 (21-32) mmol/L Anion Gap 5.0 L (6-13) BUN 19 (6-20) mg/dL Creatinine 0.9 (0.6-1.2) mg/dL Estimated GFR (MDRD) 80 L (>89) Glucose 105 H (70-100) mg/dL Calcium 7.3 L (8.5-10.3) mg/dL Assessment/Plan - Problem List (1) E coli bacteremia Impression: Pt is an 86 year old returning to the ED and subsequently inpatient for the treatment of his E.coli baceremia via IV abx. The source of this bacteremia could just as easily be from his system based on his extensive history of numerous UTI's, however, patients recent diagnosis of metastatic melanoma cancer causing multiple lesions on his liver leading to increased LFT's and WBC count is more likely than not the cause of his bacteremia. Plan: IV ceftriaxone for 5 days, monitor patients sx during this me. Then, prescribe 14 days of abx PO after discharge. (2) Metastatic melanoma Conclusion/Plan: Patient is currently on Braftovi and Mektovi for the treatment of his metastatic melanoma. He is currently being managed by Dr. Arianna lopez at [facility]. Will inform Dr Lopez about the hospitalization of ecoli bacteremia during his stay here. (3) Elevated LFTs Conclusion/Plan: Pt has worsening LFT's which is more likely than not due to the metastatic cancer to his liver (which has caused multiple lesions of his liver). Will continue to monitor levels as we treat patients ecoli bacteremia. (4) Atrial fibrillation with RVR Conclusion/Plan: Patient has extensive cardiac workup to include stress tests which were negative, and echo's which determined patient does have mild mitral regurgitation and afib with preserved EF. Patient had a dual chamber pacemaker placed which shows that he is afib 99% of the time and ventrally paced about 63% of the time. Will monitor patients vitals accordingly. (5) Chest pain Conclusion/Plan: Patient has extensive cardiac workup to include stress tests which were negative, and echo's which determined patient does have mild mitral regurgitation and afib with preserved EF. Patient had a dual chamber pacemaker placed which shows that he is afib 99% of the time and ventrally paced about 63% of the time. Patient's chest pain has been muddled by the fact that the patient has dementia and forget that he has cancer which has in turn caused a patho logical fx of his first rib. Will manage patient's chest pain through the use of pain medication. Patient is currently on tylenol prn. Will monitor pain closely. Qualifiers: Chest pain type: other chest pain Qualified Code(s): R07.89 - Other chest pain; R07.8 - Other chest pain (6) Dementia Conclusion/Plan: Spoke with the patients with Dr. Leilani Rivera over the phone with the fact that the patient is more likely than not having signs of dementia. The news of this dx is sudden and not easily accepted by Mrs. Cardoso, although she has recognized as of late that he has been getting more forgetful as of late. With the patients recent hospitalization over at [facility], patient's kids hir ed a caregiver to take care of their father as Mrs. Cardoso states herself that she is "not capable of taking care of her " 13/11. Briefly spoke about the end of life care and Mrs. Cardoso states she's never had "that deep a discussion" with the patient but knows that he wishes to be "DNR". Ideally, the plan is to establish/confirm POA/DPOA, care plan and code status. (7) Protein-calorie malnutrition, moderate Conclusion/Plan: On medical record reconciliation, there are multiple mentions of the patient recently loosing 30lb's, having night sweats, a shuffling gait, cachexia, weakness, malaise, and decreasing coordination. Patient's recent dx of cancer and dementia along with the fact that the patient has been eating less resulted in a protein-calorie malnutrition. Plan is to incorporate a nutrient rich diet while here receiving care for his ecoli bacteremia.
--- NOTE | 2022-07-09 13:23 | PROVIDER PROGRESS NOTE ---
Progress Note July 09, 2022 1:01 PM I saw him briefly this morning, and again early this afternoon. Alert. Disoriented to place and time. But good-natured and cooperative. Does not know why he is here. But he says he feels "fine". He knows that something bad is happened recently and struggles to remember that he has melanoma that has recurred to give him liver mets. He is understandably unhappy when he remembers that, but within a few moments he is forgotten all over again. Overnight there has been no fever. Blood pressures been stable in the 140s and 150s. Active Medications Acetaminophen (Acetaminophen 325 Mg Tablet) 650 mg PO Q4HR PRN PRN Reason: Pain 1 to 4, or Fever Enoxaparin Sodium (Enoxaparin 40 Mg/0.4 Ml Syringe) 40 mg SUBQ DAILY [facility] Last Admin: 07/09/22 09:28 Dose: 40 mg Ceftriaxone Sodium 1 gm/ (Sodium Chloride) 100 mls @ 200 mls/hr IV DAILY [facility] Last Infusion: 07/09/22 10:06 Dose: Infused Multi-Ingredient Ointment (Zinc Oxide 20% Oint 30 Gm Tube) 1 applic TOP PRN PRN PRN Reason: Skin Care Last Admin: 07/08/22 18:06 Dose: 1 applic Ondansetron HCl (Ondansetron Odt 4 Mg Tablet) 4 mg TL Q6HR PRN PRN Reason: Nausea / Vomiting Ondansetron HCl (Ondansetron 4 Mg/2 Ml Vial) 4 mg IVP Q6HR PRN PRN Reason: Nausea / Vomiting Oxycodone HCl (Oxycodone 5 Mg Tablet) 5 mg PO Q4HR PRN PRN Reason: Pain 5 to 7 Sodium Chloride (Sodium Chloride Flush 0.9% 10 Ml Syringe) 10 ml IVP PRN PRN PRN Reason: NEEDED PER PROVIDER ORDERS Sodium Chloride (Sodium Chloride Flush 0.9% 10 Ml Syringe) 10 ml IVP 0100,0900,1700 [facility] Last Admin: 07/09/22 09:28 Dose: 10 ml Home Meds: Apixaban [Eliquis] 2.5 mg PO BID 07/08/22 Gabapentin [Neurontin] 300 mg PO BID 07/08/22 Binimetinib [Mektovi] 45 mg PO BID 07/09/22 Encorafenib [Braftovi] 450 mg PO DAILY 07/09/22 Exam: Temperature is 36.7, heart rate 71, blood pressure 129/55, respirations 15. Tall, slender elderly gentleman with vague affect, slight greenish-yellow discoloration of his skin. That was present yesterday. Oral mucosa is pink and moist Neck is supple without adenopathy or JVD Slow, shallow, unlabored respiration with diminished breath sounds at the bases but no crackles rhonchi wheezing Irregular rate and rhythm with a systolic ejection murmur Abdomen is soft, hypoactive bowel sounds, nontender. No distention, no fluid wave. Balanitis .. Intertriginous fold slightly red Extremities without edema of ankles or feet. Calves are soft. Homans negative. Generalized weakness, very hard of hearing, but able to sit up on his own, and needs a standby assist. lab: Sodium 136, potassium 3.4, BUN 19, creatinine 0.9 White cell count 6.4, hemoglobin 10.9 Conclusion/Plan - Problem List (1) E coli bacteremia Conclusion/Plan: Pt is an 86 year old returning to the ED and subsequently inpatient for the treatment of his E.coli baceremia via IV abx. The source of this bacteremia could just as easily be from his system based on his extensive history of numerous UTI's, however, patients recent diagnosis of metastatic melanoma cancer causing multiple lesions on his liver/gallbladder edema leading to increased LFT's and WBC count is more likely than not the source of his bacteremia. Plan: IV ceftriaxone for 3 days, monitor patients sx during time. So far he has not had any fever, white cell count is normal. I am still awaiting sensitivities from the E. coli growing out in his blood from July 07. Once sensitivities available I will switch him over to orals. I am hoping it is a quinolone. He will then complete up to 2 weeks after antibiotic therapy. (2) Metastatic melanoma Conclusion/Plan: Patient is currently on Braftovi and Mektovi for the treatment of his metastatic melanoma. He is currently being managed by Dr. Arianna lopez at [facility]. Will inform Dr Lopez about the hospitalization of ecoli bacteremia during his stay here. (3) Elevated LFTs Conclusion/Plan: Pt has worsening LFT's which is more likely than not due to the metastatic cancer to his liver (which has caused multiple lesions of his liver). Will continue to monitor levels as we treat patients ecoli bacteremia. (4) Atrial fibrillation with RVR Conclusion/Plan: Patient has extensive cardiac workup to include stress tests which were negative, and echo's which determined patient does have mild mitral regurgitation and afib with preserved EF. Patient had a dual chamber pacemaker placed which shows that he is afib 99% of the time and ventrally paced about 63% of the time. He has not had any problems with rapid ventricular response since here. So far the highest recorded heartbeat is 96 yesterday afternoon. The rest the time is in the 70s and 80s. Blood pressure is in the 120 systolic and well controlled. I will continue his Eliquis. His home medication list does not have any rate control medications. None needed here so far. (5) Chest pain Conclusion/Plan: Patient has extensive cardiac workup to include stress tests which were negative, and echo's which determined patient does have mild mitral regurgitation and afib with preserved EF. Patient had a dual chamber pacemaker placed which shows that he is afib 99% of the time and ventrally paced about 63% of the time. Patient's chest pain has been muddled by the fact that the patient has dementia and forget that he has cancer which has in turn caused a pathological fx of his first rib. Will manage patient's chest pain through the use of pain medication. Patient is currently on tylenol prn. Will monitor pain closely. Qualifiers: Chest pain type: other chest pain Qualified Code(s): R07.89 - Other chest pain; R07.8 - Other chest pain (6) Dementia Conclusion/Plan: I Spoke with the patients at the time of admission, over the phone , with the fact that the patient is more likely than not having signs of dementia. The news of this dx is not easily accepted by Mrs. Cardoso, although she has recognized as of late that he has been getting more forgetful as of late. With the patients recent hospitalization over at [facility], patient's kids hired a caregiver to take care of their father as Mrs. Cardoso states herself that she is "not capable of taking care of her " 13/11. Briefly spoke about the end of life care and Mrs. Cardoso states she's never had "that deep a discussion" with the patient but knows that he wishes to be "DNR". Ideally, the plan is to establish/confirm POA/DPOA, care plan and code status. (7) Protein-calorie malnutrition, moderate Conclusion/Plan: On medical record reconciliation, there are multiple mentions of the patient recently loosing 30lb's, having night sweats, a shuffling gait, cachexia, weakness, malaise, and decreasing coordination. Patient's recent dx of cancer and dementia along with the fact that the patient has been eating less resulted in a protein-calorie malnutrition. Plan is to incorporate a nutrient rich diet while here receiving care for his ecoli bacteremia.
[2022-07-09] MEDS: APIXABAN 2.5 MG TABLET PO SCH ×2 (15:14→20:18)
[2022-07-09] MEDS: GABAPENTIN 300 MG CAPSULE PO SCH (20:18)
[2022-07-10] MEDS: SODIUM CHLORIDE FLUSH 0.9% 10 ML SYRINGE IVP SCH ×2 (03:33→08:15)
[2022-07-10 06:20] LABS: BASOPHILS % (AUTO) 0.6 %; EOSINOPHILS % (AUTO) 0.4 %; HCT - HEMATOCRIT 36.3 % (42.0-52.0); HGB - HEMOGLOBIN 11.6 g/dL (14.0-18.0); LYMPHOCYTES # (AUTO) 0.3 10^3/uL (1.5-3.5); LYMPHOCYTES % (AUTO) 4.7 %; MEAN CORPUSCULAR HEMOGLOBIN 30.1 pg (27.0-31.0); MEAN PLATELET VOLUME 8.9 fL (7.4-11.4); MONOCYTES # (AUTO) 0.5 10^3/uL (0.0-1.0); MONOCYTES % (AUTO) 7.6 %; NEUTROPHILS % (AUTO) 86.1 %; PLT - PLATELET COUNT 200 10^3/uL (130-450); RED BLOOD COUNT 3.86 10^6/uL (4.70-6.10); RED CELL DISTRIBUTION WIDTH 16.1 % (12.0-15.0)
[2022-07-10 06:30] LABS: CALCIUM 7.6 mg/dL (8.5-10.3); CREATININE 0.9 mg/dL (0.6-1.2); POTASSIUM 3.1 mmol/L (3.5-5.0)
[2022-07-10] MEDS ORDERED: POTASSIUM CHLORIDE 20 MEQ TABLET PO ONE (08:38)
[2022-07-10] MEDS: GABAPENTIN 300 MG CAPSULE PO SCH (09:07)
[2022-07-10] MEDS: APIXABAN 2.5 MG TABLET PO SCH (09:07)
[2022-07-10] MEDS: cefTRIAXone 1 GM in SODIUM CHLORIDE 0.9% MINIBAG 100 ML IV SCH (09:57)
[2022-07-10] MEDS ORDERED: POTASSIUM CHLOR 10 MEQ/100 ML 10 MEQ/100 ML BAG IV SCH (10:00)
[2022-07-10] MEDS ORDERED: POTASSIUM CHLOR 10 MEQ/100 ML 40 MEQ/400 ML BAG IV SCH (10:00)
[2022-07-10] MEDS ORDERED: CIPROFLOXACIN 250 MG TABLET PO SCH (14:00)
--- NOTE | 2022-07-10 14:14 | Discharge Plan ---
Discharge Plan Problem Reviewed?: Yes Disposition: Home, Self Care Condition: Stable Prescriptions: Ciprofloxacin [Cipro] 500 mg PO BID #48 tab Diet: Regular Activity Restrictions: Activity as Tolerated Shower Restrictions: No Driving Restrictions: Yes (no driving) Health Concerns: He presented to our emergency room because of weakness, fatigue, and fever. We found you to have E. coli bacteremia. This kind of bacteria grows in urine or bowel. Very rarely will it be upper respiratory. We think in your case it is due to the fact that you have metastatic cancer to your liver. The treatment is antibiotics. Fortunately the antibiotics can be by pill and do not have to be intravenously all the time. After 3 days, the sensitivities of the bacteria came back and we can switch you to pills. Plan of Treatment: 12 more days of ciprofloxacin, 500 mg p.o. twice a day. Ciprofloxacin is being prescribed at 250 mg tablets so that will be 2 tablets twice a day. Please take a probiotic [id number] to help with any diarrhea or side effects of antibiotic Please see your primary care provider in follow-up in the next 2 weeks. And please follow-up with your oncologist so she can tell you when to resume your immune modulating medication for your metastatic melanoma Care Goals: To remain stable with your health and live a longer life with the cancer being controlled by your medication Assessment: Patient is alert, oriented, but has cognitive deficits. is his advocate. No Smoking: If you smoke, Please STOP! Call for help.
--- NOTE | 2022-07-10 14:19 | DISCHARGE SUMMARY ---
Discharge Summary Admit Date: 07/08/22 Discharge Date: 07/10/22 Discharging Provider: Leilani Rivera MD Primary Care Provider: Matt Mims MD Code Status: Do Not Attempt Resuscitation Condition at Discharge: Stable Discharge Disposition: 01 Home, Self Care - DIAGNOSES Discharge Diagnoses with Status of Each Condition: 1. E. coli bacteremia 2. 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 Elevated LFTs 4. Chronic atrial fibrillation 5. Chest pain due to rib fracture 6. Pathologic rib fracture 7. Dementia without behavioral disturbance 8. Hypokalemia - HPI History of Present Illness: He is a gently demented elderly gentleman who still lives with his . His past medical history significant for multiple, multiple recurrent UTIs in the past. He had a prostatectomy in approximately 2002. He had subsequent strictures at the base of his bladder and then ended up having a TUR of the stricture in 2008. Nevertheless he lives a quite active life. Walked all the time. Occasionally would have intermittent chest pain and he has had a regular Darnell protocol stress test with Dr. Lan in the past that was negative. He did had a nuclear medicine stress test 2009. That was negative for ischemia. Echocardiograms in the past have shown him to have the atrial fibrillation, and a preserved ejection fraction. Mild mitral regurgitation. He has been seen by Dr. Gillette at [facility] cardiology for his cardiology issues. He has sick sinus syndrome with atrial fibrillation. This resulted in a dual-chamber pacemaker. He began having chest pain in late April or early May. This was accompanied by weight loss. A gradual deterioration in energy with increasing fatigue. Sweats at night. And sometimes a 30 pound weight loss is described in the medical record. Dr. Gillette saw him in his office in May. Thought he looked terrible and had him admitted to [facility] approx Jun 16. At [facility] he was initially evaluated as having yet another UTI. But sepsis was ruled out. They looked at his gallbladder because his gallbladder looked "swollen" and his LFTs were elevated. They continued the work-up and they found him to have a broken rib as the cause of his chest pain and multiple lesions to the liver. He underwent a biopsy the day before discharge on June 23. 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 He has since been seen by Dr. Arianna Reeder at [facility]. He has been started on BRAFtovi and Mektovi since he is BRAF gene positive. He has been taking it every day. In spite of that he is fatigued. He started developing a fever and weakness again (like he did when ambulance was called 06/23/22) and his called an ambulance and had him brought him to the emergency room on July 07. He was unable to give a history himself and the ER doctor had to piece it together from the medical record. The main just of what the ER doctor understood with that the patient was being treated for a UTI. After being evaluated in the emergency room and having relatively normal vital signs, including evaluation for the LFT elevation, the patient was sent home. The patient's blood cultures were positive for E. coli. And as such the patient was brought back to the emergency room again today by ambulance. His white cell count is normal at 7.7. He does not have a fever. He is confused. He does not know why he is here. Very sleepy. The emergency room doctor has contacted us for the E. coli bacteremia. And we will be admitting the patient for IV antibiotics for bacteremia. - Past Medical History Cardiovascular: reports: Hypertension, High cholesterol, Pulmonary embolism (dx when visiting in [place] , hyperecoag bynum neg. 2009), Atrial fibrillation, Other (pacer last interogated 2021, has 10 yrs left on battery and in afib 99% of time) Respiratory: reports: Asthma Neuro: reports: Dementia Endocrine/Autoimmune: reports: None GI: reports: GERD (w a UMER in 2002), Diverticulitis : reports: Benign prostate hypertrophy (w LUTs, s/p TURP then dilation of stricture then TUR of stricture), Incontinence, Nocturia, Kidney stones, Other (erecctile dysfunction, balanitis) Psych: reports: None Musculoskeletal: reports: Osteoarthritis, Chronic back pain (and neck pain. Does PT in the past for this) Derm: reports: None, Other MRSA Hx?: No - Past Surgical History General: reports: Appendectomy, Colonoscopy, EGD, Other (inguinal hernia repair 2007) Cardiovascular: reports: Pacemaker HEENT: reports: Cataracts Derm: reports: Skin cancer surgery - CONSULTS | PROCEDURES Procedures: Blood cultures from July 07 have grown E. coli in all bottles. Sensitive to all appropriate antibiotics. Urine culture from July 08 with polymicrobial growth and felt to be conta minant. Chest x-ray before admission on July 07 was with hazy bilateral opacities indicating mild effusions. Abdominal ultrasound on July 07 before admission had an unchanged appearance of the gallbladder wall thickening without stones. He could have longstanding a calculus cholecystitis. Ill-defined focus of low-attenuation lesions within the left lobe too small to characterize. - HOSPITAL COURSE Hospital Course: The patient remained afebrile as well as without an elevated white cell count during his stay. He will he is a vague gentleman. Easily forgetful. I had to reintroduce myself to him every single day because he did not remember that he was seeing me. He was cooperative. Eating his food. Ambulating with standby assist just to make sure he did not fall. But he remained nontoxic throughout his stay. We waited for 3 days of IV antibiotics, and make sure that sensitivities were available for us to switch him over to oral quinolone for gram-negative bacteremia. E. coli was sensitive to quinolones so I am switching him over to Cipro 500 twice daily for 12 more days. I have asked his to make sure he follows up with his primary care provider in the next 2 weeks. They already have appointments and have been speaking to his oncologist to resume his melanoma immune modulating drugs. Hypokalemia on the day of discharge was supplemented with oral potassium chloride. At discharge he is a mavis elderly gentleman. Temperature is 36.4. Heart rate 98. Blood pressure 132/66. Respirations 18. 100% on room air. We had thought that he had lost 30 pounds and as such diagnosed him with protein calorie malnutrition. But nutrition services investigated and he has been stable at 74 kg for over a year. Assess that diagnosis will be removed. He has a supple neck with shotty adenopathy. Diminished breath sounds at the bases. No increased respiratory effort or tachypnea with getting up, walking, or talking. Regular rate and rhythm. Soft systolic ejection murmur loudest at the apex. And abdomen is soft, nontender, normal bowel sounds, no tenderness even at the right upper quadrant. Extremities are without edema. Greater than 30 minutes was spent coordinating discharge - ALLERGIES Allergies/Adverse Reactions: Allergies Allergy/AdvReac Type Severity Reaction Status Date / Time pneumococcal vaccine Allergy Hives Verified 07/08/22 12:29 [From Prevnar 13 (PF)] - MEDICATIONS Home Medications: Ambulatory Orders Medication Instructions Recorded Confirmed Apixaban [Eliquis] 2.5 mg PO BID 07/08/22 07/09/22 Gabapentin [Neurontin] 300 mg PO BID 07/08/22 07/08/22 Binimetinib [Mektovi] 45 mg PO BID 07/09/22 07/09/22 Encorafenib [Braftovi] 450 mg PO DAILY 07/09/22 07/09/22 Ciprofloxacin [Cipro] 500 mg PO BID #48 tab 07/10/22 - LABS Result Diagrams: 07/10/22 06:09 07/10/22 06:09
[2022-07-10 14:43] VITALS: BP 131/68
== END 2022-07-10 15:07 | disposition home or self-care (01) | DRG 872 ==
LOC: EDUNIT# → ED 10:31 → MS2 12:01
PROVIDERS: ADMIT Specialist; ATTEND Specialist
DX: R78.81 Bacteremia (principal); C78.7 Secondary malignant neoplasm of liver and intrahepatic bile duct; I48.20 Chronic atrial fibrillation, unspecified; N39.0 Urinary tract infection, site not specified; C79.9 Secondary malignant neoplasm of unspecified site; E44.0 Moderate protein-calorie malnutrition; I50.30 Unspecified diastolic (congestive) heart failure; A49.8 Other bacterial infections of unspecified site; K21.9 Gastro-esophageal reflux disease without esophagitis; C43.9 Malignant melanoma of skin, unspecified; R79.89 Other specified abnormal findings of blood chemistry; Z79.01 Long term (current) use 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s; F03.90 Unspecified dementia, unspecified severity, without behavioral disturbance, psychotic disturbance, mood disturbance, and anxiety; E87.6 Hypokalemia; I49.5 Sick sinus syndrome; Z66 Do not resuscitate; Z95.0 Presence of cardiac pacemaker; R07.89 Other chest pain; Z68.23 Body mass index [BMI] 23.0-23.9, adult; R41.0 Disorientation, unspecified; M84.58XD Pathological fracture in neoplastic disease, other specified site, subsequent encounter for fracture with routine healing; R53.1 Weakness; Z87.440 Personal history of urinary (tract) infections; Z90.79 Acquired absence of other genital organ(s); I11.0 Hypertensive heart disease with heart failure; Z86.711 Personal history of pulmonary embolism; N40.1 Benign prostatic hyperplasia with lower urinary tract symptoms; N39.498 Other specified urinary incontinence; R35.1 Nocturia
CPT/HCPCS: 36415; 80048; 80053; 81001; 83605; 83690; 85025; 85610; 85730; 87086; 96374; 99284; 99285; A9270; J1650; 81003

== ENCOUNTER 2022-07-11 17:10 | Outpatient (CLI) | payer MEDICARE, OTHER | END 2022-07-11 17:11 | disposition critical access hospital (66) | LOC: EMS 17:10 | DX: R50.9 Fever, unspecified (principal); R53.1 Weakness | CPT/HCPCS: A0425; A0429 ==

== ENCOUNTER 2022-07-11 17:22 | Emergency (ER) | payer MEDICARE, OTHER ==
[2022-07-11] MEDS ORDERED: SODIUM CHLORIDE 0.9% 1,000 ML IV STA (17:43)
[2022-07-11 18:00] LABS: BASOPHILS % (AUTO) 0.5 %; EOSINOPHILS # (AUTO) 0.1 10^3/uL (0.0-0.7); EOSINOPHILS % (AUTO) 0.7 %; HCT - HEMATOCRIT 35.1 % (42.0-52.0); HGB - HEMOGLOBIN 11.1 g/dL (14.0-18.0); LYMPHOCYTES # (AUTO) 0.5 10^3/uL (1.5-3.5); LYMPHOCYTES % (AUTO) 6.1 %; MEAN CORPUSCULAR HEMOGLOBIN 29.8 pg (27.0-31.0); MEAN CORPUSCULAR HGB CONC 31.6 g/dL (32.0-36.0); MEAN CORPUSCULAR VOLUME 94.4 fL (80.0-94.0); MEAN PLATELET VOLUME 9.3 fL (7.4-11.4); MONOCYTES # (AUTO) 0.6 10^3/uL (0.0-1.0); MONOCYTES % (AUTO) 8.3 %; NEUTROPHILS # (AUTO) 6.1 10^3/uL (1.5-6.6); NEUTROPHILS % (AUTO) 83.4 %; PLT - PLATELET COUNT 230 10^3/uL (130-450); RED BLOOD COUNT 3.72 10^6/uL (4.70-6.10); RED CELL DISTRIBUTION WIDTH 16.1 % (12.0-15.0); WHITE BLOOD COUNT 7.3 x10^3/uL (4.8-10.8)
--- NOTE | 2022-07-11 18:00 | ED Physician Documentation ---
History of Present Illness - Stated complaint Stated Complaint: FEVER - Chief complaint Chief Complaint: Fever - History obtained from History obtained from: Patient, Family, EMS - History of Present Illness Pain level max: 0 Pain level now: 0 - Additonal information Additional information: Patient is a 86-year-old male who presents to the emergency department for fever today. He was recently admitted for E. coli bacteremia. Placed on ciprofloxacin for home. He had a dose of ciprofloxacin yesterday before being discharged from the inpatient [facility], this was around 3 PM. His gave him a dose this morning at around 8:30 AM. She states that he had a fever later this morning, Tmax 101. She states that he had chills as well. He has a history of multiple myeloma. He called his oncologist who referred him back to the hospital. No vomiting. No diarrhea. No constipation. Review of Systems Constitutional: reports: Fever Respiratory: denies: Cough GI: denies: Vomiting : denies: Dysuria, Frequency, Hesitancy Skin: denies: Rash Musculoskeletal: denies: Neck pain, Back pain Neurologic: denies: Headache PD PAST MEDICAL HISTORY - Past Medical History Cardiovascular: Hypertension, High cholesterol, Pulmonary embolism (dx when visiting in [place] , hyperecoag bynum neg. 2009), Atrial fibrillation, Other (pacer last interogated 2021, has 10 yrs left on battery and in afib 99% of time) Respiratory: Asthma Neuro: Dementia Endocrine/Autoimmune: None GI: GERD (w a UMER in 2002), Diverticulitis : Benign prostate hypertrophy (w LUTs, s/p TURP then dilation of stricture then TUR of stricture), Incontinence, Nocturia, Kidney stones, Other (erecctile dysfunction, balanitis) Psych: None Musculoskeletal: Osteoarthritis, Chronic back pain (and neck pain. Does PT in the past for this) Derm: None, Other - Past Surgical History Past Surgical History: Yes General: Appendectomy, Colonoscopy, EGD, Other (inguinal hernia repair 2007) Cardiovascular: Pacemaker HEENT: Cataracts Derm: Skin cancer surgery - Present Medications Home Medications: Ambulatory Orders Medication Instructions Recorded Confirmed Apixaban [Eliquis] 2.5 mg PO BID 07/08/22 07/11/22 Gabapentin [Neurontin] 300 mg PO BID 07/08/22 07/11/22 Binimetinib [Mektovi] 45 mg PO BID 07/09/22 07/11/22 Encorafenib [Braftovi] 450 mg PO DAILY 07/09/22 07/11/22 Ciprofloxacin [Cipro] 500 mg PO BID #48 tab 07/10/22 07/11/22 - Allergies Allergies/Adverse Reactions: Allergies Allergy/AdvReac Type Severity Reaction Status Date / Time pneumococcal vaccine Allergy Hives Verified 07/11/22 17:35 [From Prevestevan 13 (PF)] - Social History Does the pt smoke?: No Smoking Status: Never smoker Does the pt drink ETOH?: Yes Does the pt have substance abuse?: No - Immunizations Immunizations are current?: Yes - POLST Patient has POLST: No POLST Status: DNR (per his who has advanced directives at home) PD ED PE NORMAL - Vitals Vital signs reviewed: Yes - General General: Alert and oriented X 3, No acute distress - HEENT HEENT: Moist mucous membranes - Neck Neck: Supple, no meningeal sign - Cardiac Cardiac: RRR, Strong equal pulses - Respiratory Respiratory: No respiratory distress, Clear bilaterally - Abdomen Abdomen: Soft, Non tender, Non distended - Derm Derm: Warm and dry - Extremities Extremities: No edema - Neuro Neuro: Alert and oriented X 3 Results - Vitals Vitals: Vital Signs - 24 hr 07/11/22 07/11/22 17:30 20:27 Temperature 37.2 C Heart Rate 104 H 91 Respiratory 22 16 Rate Blood Pressure 148/66 H 122/68 O2 Saturation 98 94 Oxygen O2 Source Room air - Labs Labs: Laboratory Tests 07/11/22 07/11/22 07/11/22 17:30 17:57 17:57 WBC 7.3 RBC 3.72 L Hgb 11.1 L Hct 35.1 L MCV 94.4 H MCH 29.8 MCHC 31.6 L RDW 16.1 H Plt Count 230 MPV 9.3 Neut # (Auto) 6.1 Lymph # (Auto) 0.5 L [place] # (Auto) 0.6 Eos # (Auto) 0.1 Baso # (Auto) 0.0 Absolute Nucleated RBC 0.00 Nucleated RBC % 0.0 PT 19.7 H INR 1.8 H APTT 70.8 H Sodium Potassium Chloride Carbon Dioxide Anion Gap BUN Creatinine Estimated GFR (MDRD) Glucose Lactic Acid Calcium Total Bilirubin AST ALT Alkaline Phosphatase Total Protein Albumin Globulin Albumin/Globulin Ratio Lipase Urine Color DARK YELLOW Urine Clarity CLEAR Urine pH 5.5 Ur Specific [place] 1.015 Urine Protein TRACE Urine Glucose (UA) NEGATIVE Urine Ketones NEGATIVE Urine Occult Blood NEGATIVE Urine Nitrite NEGATIVE Urine Bilirubin NEGATIVE Urine Urobilinogen 0.2 (NORMAL) Ur Leukocyte Esterase NEGATIVE Ur Microscopic Review NOT INDICATED Urine Culture Comments NOT INDICATED Nasal Adenovirus (PCR) Nasal B. parapertussis DNA (PCR) Nasal Coronavir 229E PCR Nasal Coronavir HKU1 PCR Nasal Coronavir NL63 PCR Nasal Coronavir OC43 PCR Nasal Enterovir/Rhinovir PCR Nasal Influenza B PCR Nasal Influenza A PCR Nasal Parainfluen 1 PCR Nasal Parainfluen 2 PCR Nasal Parainfluen 3 PCR Nasal Parainfluen 4 PCR Nasal RSV (PCR) Nasal B.pertussis DNA PCR Nasal C.pneumoniae (PCR) Nathan Human Metapneumo PCR Nasal M.pneumoniae (PCR) Nasal SARS-CoV-2 (PCR) 07/11/22 07/11/22 07/11/22 17:57 17:57 18:00 WBC RBC Hgb Hct MCV MCH MCHC RDW Plt Count MPV Neut # (Auto) Lymph # (Auto) [place] # (Auto) Eos # (Auto) Baso # (Auto) Absolute Nucleated RBC Nucleated RBC % PT INR APTT Sodium 135 Potassium 3.4 L Chloride 102 Carbon Dioxide 23 Anion Gap 10.0 BUN 15 Creatinine 0.9 Estimated GFR (MDRD) 80 L Glucose 112 H Lactic Acid 1.7 Calcium 7.7 L Total Bilirubin 1.9 H AST 61 H ALT 48 Alkaline Phosphatase 482 H Total Protein 5.2 L Albumin 2.2 L Globulin 3.0 Albumin/Globulin Ratio 0.7 L Lipase 68 H Urine Color Urine Clarity Urine pH Ur Specific [place] Urine Protein Urine Glucose (UA) Urine Ketones Urine Occult Blood Urine Nitrite Urine Bilirubin Urine Urobilinogen Ur Leukocyte Esterase Ur Microscopic Review Urine Culture Comments Nasal Adenovirus (PCR) NOT DETECTED Nasal B. parapertussis DNA (PCR) NOT DETECTED Nasal Coronavir 229E PCR NOT DETECTED Nasal Coronavir HKU1 PCR NOT DETECTED Nasal Coronavir NL63 PCR NOT DETECTED Nasal Coronavir OC43 PCR NOT DETECTED Nasal Enterovir/Rhinovir PCR NOT DETECTED Nasal Influenza B PCR NOT DETECTED Nasal Influenza A PCR NOT DETECTED Nasal Parainfluen 1 PCR NOT DETECTED Nasal Parainfluen 2 PCR NOT DETECTED Nasal Parainfluen 3 PCR NOT DETECTED Nasal Parainfluen 4 PCR NOT DETECTED Nasal RSV (PCR) NOT DETECTED Nasal B.pertussis DNA PCR NOT DETECTED Nasal C.pneumoniae (PCR) NOT DETECTED Nathan Human Metapneumo PCR NOT DETECTED Nasal M.pneumoniae (PCR) NOT DETECTED Nasal SARS-CoV-2 (PCR) NOT DETECTED - Rads (name of study) CT abd/pelvis Relevant Findings:: Final report received, See rad report PD Medical Decision Making - ED course Complexity details: reviewed old records, reviewed results, re-evaluated patient, considered differential, d/w patient, d/w family, d/w nutrition consultant ED course: CBC does not show any significant abnormalities other than a mild anemia. Coags shows a INR of 1.8. Chemistries show hypocalcemia which is chronic. Elevation of his total bilirubin which has been present on his last for blood draws since June 13. He has also had elevation of his AST mildly, ALT is not elevated. Alkaline phosphatase is elevated, but down from his last blood draw 3 days ago. His urinalysis does not show any evidence of infection. Respiratory PCR is negative. No fever here. Blood cultures redrawn. Lactate is normal. His bacteremia was from E. coli. His urine was thought to be infected but urine culture did not grow out E. coli. His gallbladder has been persistently thickened, but now has LFT elevations. Unclear if this is from liver metastases or if this is from potential chronic cholecystitis? The gallbladder would be a source of E. coli bacteremia. Discussed the case with Dr. Frias, general surgery on-call, does not feel this patient would be a good surgical candidate. Would consider a cholecystostomy tube with IR for potential drainage. There are no beds available in the hospital [facility], therefore the patient will be boarded in the emergency department, continued on IV antibiotics, IV fluids and reassessed in the morning. Patient is signed out to the oncoming emergency department physician. IMPRESSION: 1.Colonic diverticulosis with mild pericolonic fat stranding again seen that may represent mild diverticulitis. No well-formed abscess or pneumoperitoneum. 2.Multiple tiny hypodense foci within the liver and spleen are more confluent area of edema in the posterior right hepatic lobe. The appearance is nonspecific but could represent multiple small hepatic and splenic abscesses in the setting of bacteremia. No definite drainable collection is seen. 3.Nonspecific gallbladder wall thickening is seen as demonstrated on recent ultrasound, nonspecific and possibly related to volume status. 4.Signs of volume overload including small moderate bilateral pleural effusions, moderate ascites, and diffuse soft tissue anasarca. IMPRESSION: Small left-sided pleural effusion. Postoperative and degenerative changes are seen. Departure - Departure Disposition: 66 [facility] DC/Xfer Clinical Impression: Acalculous cholecystitis, Bacteremia, Elevated LFTs Fever Qualifiers: Fever type: unspecified Qualified Code(s): R50.9 - Fever, unspecified Condition: Stable
[2022-07-11] MEDS ORDERED: iohexoL-300 100 ML VIAL ONE (18:04)
[2022-07-11 18:05] LABS: INR 1.8 (0.8-1.2); PT - PROTHROMBIN TIME 19.7 secs (9.9-12.6)
[2022-07-11 18:12] LABS: PARTIAL THROMBOPLASTIN TIME 70.8 secs (24.9-33.3)
--- OUTSIDE RECORDS SUMMARY | 2022-07-11 18:21 | EXTERNAL MEDICAL SUMMARY RPT | Continuity of Care Document ---
:1935 Author Organization [facility] Address [address] [place] [address] Phone Care Team Providers Name Role Phone Unavailable Unavailable Unavailable Lucien Lan Unavailable Unavailable Allergies and Intolerances date description facility type (no date) pneumococcal 7-valent conjugate to [facility] (unknown) Encounters No information. Functional Status No information. Immunizations No information. Medications date description facility 2022-06-16 00:00 Apixaban [facility] 2022-06-16 00:00 Amlodipine [facility] 2022-06-16 00:00 Gabapentin [facility] Problems date description facility 2022-06-16 00:00 Sepsis [facility] 2022-06-16 00:00 Atrial fibrillation [facility] 2022-06-16 00:00 Urinary tract infection [facility] 2022-06-16 00:00 Confusion [facility] 2022-06-16 00:00 Elevated transaminase measurement [facility] 2022-06-16 00:00 Body mass index (BMI) of 22.0 to 22.9 i n adult [facility] 2022-06-16 00:00 Presence of cardiac pacemaker [facility] 2022-06-17 00:00 Primary hypertension [facility] 2022-06-17 00:00 Asthma [facility] 2022-06-17 00:00 Impaired cognition [facility] 2022-06-17 00:00 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 [facility] 2022-06-19 13:52 Sepsis, unspecified organism [facility] 2022-06-22 08:33 Sepsis, unspecified organism [facility] 2022-06-22 11:44 Sepsis, unspecified organism [facility] 2022-06-22 14:32 Sepsis, unspecified organism [facility] 2022-06-27 14:23 Sepsis, unspecified organism [facility] 2022-06-27 14:43 Sepsis, unspecified organism [facility] Procedures date description facility 2022-06-16 00:00 Computed tomography of head or brain wi [facility] contrast 2022-06-21 00:00 Gram Stain [facility] 2022-06-20 00:00 CT soft tissue neck w [facility] denzel 2022-06-16 00:00 X-ray of chest, single view [facility] 2022-06-16 00:00 CT abdomen pelvis w [facility] 2022-06-17 00:00 US Abdomen limited [facility] 2022-06-16 00:00 CT chest w [facility] 2022-06-21 00:00 CT biopsy [facility] Results/Labs test date author facility value [...] nown) date) unknown) (unknown) (no (unknown) (unknown) [id number] (units (unkno wn) date) unknown) (unknown) (no (unknown) (unknown) 06/16/22 (units (unkno wn) date) unknown) (unknown) (no (unknown) (unknown) [address] (units (unkn own) date) Street unknown) (unknown) (no (unknown) (unknown) Accession (units (unkn own) date) Number: unknown) [id number] (unknown) (no (unknown) (unknown) Age/Sex: 86 / M (units (unknown) date) Date of Service: unknown) (unknown) (no (unknown) (unknown) [place], [place] (units ( unknown) date) [address] unknown) (unknown) (no (unknown) (unknown) Approved by: (units (u nknown) date) Brandyn Davis M.D. unknown) on 06/16/2022 at 13:03 (unknown) (no (unknown) (unknown) Bones and chest (units (unknown) date) wall: No unknown) suspicious bony lesions. Overlying soft tissues (unknown) (no (unknown) (unknown) COMPARISON: (units (un known) date) None. unknown) (unknown) (no (unknown) (unknown) : 1935 (units (unknown) date) Acct:[id number] unknown) (unknown) (no (unknown) (unknown) Dictated by: (units (u nknown) date) Brandyn Davis M.D. unknown) on 06/16/2022 at 13:02 (unknown) (no (unknown) (unknown) FINDINGS: (units (unkn own) date) unknown) (unknown) (no (unknown) (unknown) IMPRESSION: (units (un known) date) Possible mild unknown) right and retrocardiac opacities could represent (unknown) (no (unknown) (unknown) INDICATIONS: (units (u nknown) date) suspected sepsis unknown) (unknown) (no (unknown) (unknown) [facility] (units (unknown) date) unknown) (unknown) [...] nown) date) unknown) (unknown) (no (unknown) (unknown) [id number] (units (unkno wn) date) unknown) (unknown) (no (unknown) (unknown) 06/16/22 (units (unkno wn) date) unknown) (unknown) (no (unknown) (unknown) [address] [place] [address] (units (unknown) date) unknown) (unknown) (no (unknown) (unknown) Accession Number: (units (unknown) date) [id number] unknown) (unknown) (no (unknown) (unknown) Age/Sex: 86 / M (units (unknown) date) Date of Service: unknown) (unknown) (no (unknown) (unknown) [place] (units ( unknown) date) [address] unknown) (unknown) (no (unknown) (unknown) Approved by: [...] (unknown) (unknown) : 1935 (units (unknown) date) Acct:[id number] unknown) (unknown) (no (unknown) (unknown) Dictated by: [...] date) Good unknown) (unknown) (no (unknown) (unknown) [facility] (units (unknown) date) unknown) (unknown) [...] nown) date) unknown) (unknown) (no (unknown) (unknown) [id number] (units (unkno wn) date) unknown) (unknown) (no (unknown) (unknown) 06/16/22 (units (unkno wn) date) unknown) (unknown) (no (unknown) (unknown) [address] [place] [address] (units (unknown) date) unknown) (unknown) (no (unknown) (unknown) Accession (units (unkn own) date) Number: unknown) [id number] (unknown) (no (unknown) (unknown) After the (units (unkn own) date) administration of unknown) intravenous contrast, 5 mm thick sections acquired (unknown) (no (unknown) (unknown) Age/Sex: 86 / M (units (unknown) date) Date of Service: unknown) (unknown) (no (unknown) (unknown) [place], [place] (units ( unknown) date) [address] unknown) (unknown) (no (unknown) (unknown) Approved by: (units (u nknown) date) Brandyn Davis M.D. unknown) on 06/16/2022 at 14:52 (unknown) (no (unknown) (unknown) Bones: No acute (units (unknown) date) or suspicious unknown) osseous abnormality. (unknown) (no (unknown) (unknown) COMPARISON: (units (un known) date) [facility], unknown) CR, XR CHEST 1V, 06/16/2022, 12:43. (unknown) (no (unknown) (unknown) CT Scan Report (units (unknown) date) unknown) (unknown) (no (unknown) (unknown) Chest wall and (units (unknown) date) thyroid: unknown) Unremarkable (unknown) (no (unknown) (unknown) : 1935 (units (unknown) date) Acct:[id number] unknown) (unknown) (no (unknown) (unknown) Dictated by: [...] date) Good unknown) (unknown) (no (unknown) (unknown) [facility] (units (unknown) date) unknown) (unknown) (no (unknown) (unknown) Loc: ED (units (unkno wn) date) unknown) (unknown) (no (unknown) (unknown) Lungs and (units (unkn own) date) pleura: Bilateral unknown) zpwr-gs-sdqtewwt pleural effusions, slightly (unknown) (no (unknown) (unknown) Mediastinum, (units (u nknown) date) heart, and unknown) esophagus: No hiatal hernia. 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 layer as well as ER (unknown) (no (unknown) [...] date) Signs: unknown) (unknown) (no (unknown) (unknown) [facility] (units (unknown) date) [address] unknown) [place] [address] (unknown) (no (unknown) (unknown) Lab Data (units [...] (unknown) Lymph # (Auto) (units (unknown) date) (3520-7963) /uL unknown) (unknown) (no (unknown) (unknown) Lymph # (Auto) (units (unknown) date) 400 L (4590-6962) unknown) /uL (unknown) (no (unknown) (unknown) Lymph [...] date) Wheelchair unknown) (unknown) (no (unknown) (unknown) Gallia # (Auto) (units ( unknown) date) (0-900) /uL unknown) (unknown) (no (unknown) (unknown) [place] # (Auto) (units ( unknown) date) 900 (0-900) /uL unknown) (unknown) (no (unknown) (unknown) [place] % (Auto) (units ( unknown) date) (3-14) % unknown) (unknown) (no (unknown) (unknown) [place] % (Auto) (units ( unknown) date) 9.4 [...] Neut # (Auto) (units ( unknown) date) (2146-1328) /uL unknown) (unknown) (no (unknown) (unknown) Neut # (Auto) (units ( unknown) date) 8200 H unknown) (0333-0781) /uL (unknown) (no (unknown) (unknown) Neut % [...] (4.5-11.0) unknown) X103/uL (unknown) (no (unknown) (unknown) [facility] (units (unknown) date) ER for [...] (units (unk nown) date) 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 (unknown) (no (unknown) (unknown) [...] with (units (unk nown) date) patient's unknown) concrete block layer and he was concern for patient's welfare [...] nown) date) unknown) (unknown) (no (unknown) (unknown) [id number] (units (unkno wn) date) unknown) (unknown) (no [...] (unknown) (unknown) : 1935 (units (unknown) date) Acct:[id number] unknown) (unknown) (no (unknown) (unknown) Data collected (units (unknown) date) from: Patient and unknown) and patient's concrete block layer as well as ER (unknown) (no (unknown) [...] date) Signs: unknown) (unknown) (no (unknown) (unknown) [facility] (units (unknown) date) [address] unknown) [place] [address] (unknown) (no (unknown) (unknown) Lab Data (units [...] (unknown) Lymph # (Auto) (units (unknown) date) (2094-8334) /uL unknown) (unknown) (no (unknown) (unknown) Lymph # (Auto) (units (unknown) date) 400 L (7510-6259) unknown) /uL (unknown) (no (unknown) (unknown) Lymph [...] date) Wheelchair unknown) (unknown) (no (unknown) (unknown) Gallia # (Auto) (units ( unknown) date) (0-900) /uL unknown) (unknown) (no (unknown) (unknown) Gallia # (Auto) (units ( unknown) date) 900 (0-900) /uL unknown) (unknown) (no (unknown) (unknown) [place]ia % (Auto) (units ( unknown) date) (3-14) % unknown) (unknown) (no (unknown) (unknown) Gall[place] % (Auto) (units ( unknown) date) 9.4 [...] Neut # (Auto) (units ( unknown) date) (1532-2516) /uL unknown) (unknown) (no (unknown) (unknown) Neut # (Auto) (units ( unknown) date) 8200 H unknown) (0061-1552) /uL (unknown) (no (unknown) (unknown) Neut % [...] (4.5-11.0) unknown) X103/uL (unknown) (no (unknown) (unknown) [facility] (units (unknown) date) ER for [...] (units (unk nown) date) 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 (unknown) (no (unknown) (unknown) [...] with (units (unk nown) date) patient's unknown) concrete block layer and he was concern for patient's welfare [...] nown) date) unknown) (unknown) (no (unknown) (unknown) [id number] (units (unkno wn) date) unknown) (unknown) (no [...] wn) date) unknown) (unknown) (no (unknown) (unknown) [address] [place] [address] (units (unknown) date) unknown) (unknown) (no (unknown) [...] (unknown) (unknown) Accession Number: (units (unknown) date) [id number] ?? unknown) (unknown) (no (unknown) (unknown) Accession Number: (units (unknown) date) [id number] ?? unknown) (unknown) (no (unknown) (unknown) Accession Number: (units (unknown) date) [id number] ?? unknown) (unknown) (no (unknown) (unknown) Acct:[id number] (units (unknown) date) unknown) (unknown) (no (unknown) [...] (unknown) [place] (units ( unknown) date) [address] unknown) (unknown) (no (unknown) (unknown) Approved by: [...] (unknown) (unknown) COMPARISON:? (units (u nknown) date) [facility], unknown) CR, XR CHEST 1V, [...] (unknown) (unknown) : 1935 (units (unknown) date) Acct:[id number] unknown) (unknown) (no (unknown) (unknown) : 1935 (units (unknown) date) unknown) (unknown) (no (unknown) (unknown) Data collected (units (unknown) date) from: Patient and unknown) and patient's concrete block layer as well as ER (unknown) (no (unknown) [...] date) Signs: unknown) (unknown) (no (unknown) (unknown) [facility] (units (unknown) date) [address] unknown) [place] [address] (unknown) (no (unknown) (unknown) [facility] (units (unknown) date) unknown) (unknown) [...] (units (unkn own) date) pleura:? Bilateral unknown) baji-ip-pojjkfvm pleural effusions, slightly (unknown) (no (unknown) (unknown) Lungs and pleura:? (units (unknown) date) Low lung volumes.? unknown) Possible mild right and retrocardiac basal (unknown) (no (unknown) (unknown) Lymph # (Auto) (units (unknown) date) (0460-7634) /uL unknown) (unknown) (no (unknown) (unknown) Lymph # (Auto) (units (unknown) date) 400 L (1438-9796) unknown) /uL (unknown) (no (unknown) (unknown) Lymph [...] date) unknown) (unknown) (no (unknown) (unknown) MR#: [id number] (units (unknown) date) unknown) (unknown) (no (unknown) [...] unknown) Recorded Confirmed (unknown) (no (unknown) (unknown) Xswa-pq-qwzqgfux, (units (unknown) date) unknown) (unknown) (no (unknown) (unknown) Mode of arrival: (units (unknown) date) Wheelchair unknown) (unknown) (no (unknown) (unknown) Gallia # (Auto) (units ( unknown) date) (0-900) /uL unknown) (unknown) (no (unknown) (unknown) Gallia # (Auto) 900 (units (unknown) date) (0-900) /uL unknown) (unknown) (no (unknown) (unknown) [place] % (Auto) (units ( unknown) date) (3-14) % unknown) (unknown) (no (unknown) (unknown) [place] % (Auto) 9.4 (units (unknown) date) (3-14) [...] Neut # (Auto) (units ( unknown) date) (6577-2322) /uL unknown) (unknown) (no (unknown) (unknown) Neut # (Auto) (units ( unknown) date) 8200 H (2483-3691) unknown) /uL (unknown) (no (unknown) (unknown) Neut [...] (4.5-11.0) X103/uL unknown) (unknown) (no (unknown) (unknown) [facility] (units (unknown) date) ER for [...] hands with 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 and he was concern for patient's welfare [...] nown) date) unknown) (unknown) (no (unknown) (unknown) [id number] (units (unkno wn) date) unknown) (unknown) (no [...] date) unknown) (unknown) (no (unknown) (unknown) [address] [place] [address] (units (unknown) date) unknown) (unknown) (no (unknown) [...] (unknown) (unknown) Accession Number: (units (unknown) date) [id number] ?? unknown) (unknown) (no (unknown) (unknown) Accession Number: (units (unknown) date) [id number] ?? unknown) (unknown) (no (unknown) (unknown) Accession Number: (units (unknown) date) [id number] ?? unknown) (unknown) (no (unknown) (unknown) Acct:[id number] (units (unknown) date) unknown) (unknown) (no (unknown) [...] Date / Time (unknown) (no (unknown) (unknown) [place] (units ( unknown) date) [address] unknown) (unknown) (no (unknown) (unknown) Approved by: [...] (unknown) (unknown) COMPARISON:? (units (u nknown) date) [facility], unknown) CR, XR CHEST 1V, [...] (unknown) (unknown) : 1935 (units (unknown) date) Acct:[id number] unknown) (unknown) (no (unknown) (unknown) : 1935 (units (unknown) date) unknown) (unknown) (no (unknown) (unknown) Data collected (units (unknown) date) from: Patient and unknown) and patient's concrete block layer as well as ER (unknown) (no (unknown) [...] date) Signs: unknown) (unknown) (no (unknown) (unknown) [facility] (units (unknown) date) [address] unknown) [place] [address] (unknown) (no (unknown) (unknown) [facility] (units (unknown) date) unknown) (unknown) [...] (units (unkn own) date) pleura:? Bilateral unknown) bwee-df-fiiftoeb pleural effusions, slightly (unknown) (no (unknown) (unknown) Lungs and pleura:? (units (unknown) date) Low lung volumes.? unknown) Possible mild right and retrocardiac basal (unknown) (no (unknown) (unknown) Lymph # (Auto) (units (unknown) date) (5877-5770) /uL unknown) (unknown) (no (unknown) (unknown) Lymph # (Auto) (units (unknown) date) 400 L (3707-3353) unknown) /uL (unknown) (no (unknown) (unknown) Lymph [...] date) unknown) (unknown) (no (unknown) (unknown) MR#: [id number] (units (unknown) date) unknown) (unknown) (no (unknown) [...] unknown) Recorded Confirmed (unknown) (no (unknown) (unknown) Fgtp-xz-afmwovkw, (units (unknown) date) unknown) (unknown) (no (unknown) (unknown) Mode of arrival: (units (unknown) date) Wheelchair unknown) (unknown) (no (unknown) (unknown) Gallia # (Auto) (units ( unknown) date) (0-900) /uL unknown) (unknown) (no (unknown) (unknown) Gallia # (Auto) 900 (units (unknown) date) (0-900) /uL unknown) (unknown) (no (unknown) (unknown) Gallia % (Auto) (units ( unknown) date) (3-14) % unknown) (unknown) (no (unknown) (unknown) Gallia % (Auto) 9.4 (units (unknown) date) (3-14) [...] Neut # (Auto) (units ( unknown) date) (7494-9346) /uL unknown) (unknown) (no (unknown) (unknown) Neut # (Auto) (units ( unknown) date) 8200 H (2645-5862) unknown) /uL (unknown) (no (unknown) (unknown) Neut [...] (4.5-11.0) X103/uL unknown) (unknown) (no (unknown) (unknown) [facility] (units (unknown) date) ER for [...] hands with 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 and he was concern for patient's welfare [...] (unknown) date) unknown) (unknown) (no (unknown) (unknown) [id number] (units (unkno wn) date) unknown) (unknown) (no [...] (unknown) (unknown) : 1935 (units (unknown) date) Acct:[id number] unknown) (unknown) (no (unknown) (unknown) Date Patient [...] date) (RT-PCR) unknown) (unknown) (no (unknown) (unknown) [facility] (units (unknown) date) [address] unknown) [place] [address] (unknown) (no (unknown) (unknown) Laboratory (units (unk [...] wn) date) unknown) (unknown) (no (unknown) (unknown) Gallia # (Auto) (units ( unknown) date) 900 unknown) (unknown) (no (unknown) (unknown) Gallia # (Auto) (units ( unknown) date) unknown) (unknown) (no (unknown) (unknown) Gallia % (Auto) (units ( unknown) date) 9.4 unknown) (unknown) (no (unknown) (unknown) Gallia % (Auto) (units ( unknown) date) unknown) [...] (units (unkn own) date) Hawa Michael unknown) 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 Multiple (units (un known) date) ill-defined unknown) hypoattenuating mass lesions throughout the liver. The (unknown) (no (unknown) (unknown) [address] (units (unknown) date) unknown) (unknown) (no (unknown) (unknown) 2. Numerous small (units (unknown) date) hypoattenuating unknown) lesions throughout the spleen are also (unknown) (no (unknown) (unknown) ABDOMEN: (units (unkno wn) date) unknown) (unknown) (no (unknown) (unknown) Abdominal Nodes: (units (unknown) date) No retroperitoneal unknown) or mesenteric adenopathy by size criteria. (unknown) (no (unknown) (unknown) Accession Number: (units (unknown) date) [id number] unknown) (unknown) (no (unknown) (unknown) Adrenal Glands: (units (unknown) date) No adrenal unknown) nodules. (unknown) (no (unknown) (unknown) After the (units (unkn own) date) administration of unknown) IV contrast, axial sections were acquired from the (unknown) (no (unknown) (unknown) Age/Sex: 86 / M (units (unknown) date) Date of Service: unknown) (unknown) (no (unknown) (unknown) [place], [place] (units ( unknown) date) [address] unknown) (unknown) (no (unknown) (unknown) Approved by: [...] (unknown) (unknown) : 1935 (units (unknown) date) Acct:[id number] unknown) (unknown) (no (unknown) (unknown) Dictated by: [...] date) Excellent. unknown) (unknown) (no (unknown) (unknown) [facility] (units (unknown) date) unknown) (unknown) [...] (unknown) date) unknown) (unknown) (no (unknown) (unknown) [id number] (units (unkno wn) date) unknown) (unknown) (no [...] (unknown) (unknown) : 1935 (units (unknown) date) Acct:[id number] unknown) (unknown) (no (unknown) (unknown) Date Patient [...] date) (RT-PCR) unknown) (unknown) (no (unknown) (unknown) [facility] (units (unknown) date) [address] [place] [address] unknown) [place] [address] (unknown) (no (unknown) (unknown) Laboratory (units (unk [...] wn) date) unknown) (unknown) (no (unknown) (unknown) Gallia # (Auto) (units ( unknown) date) 900 unknown) (unknown) (no (unknown) (unknown) Gallia # (Auto) (units ( unknown) date) unknown) (unknown) (no (unknown) (unknown) Gallia % (Auto) (units ( unknown) date) 9.4 unknown) (unknown) (no (unknown) (unknown) Gallia % (Auto) (units ( unknown) date) unknown) [...] (units (unkn own) date) Hawa Michael unknown) 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[employer] (unknown) (no (unknown) (unknown) Pulse Oximetry (units [...] (unknown) Ur Specific (units (un known) date) [place] 1.020 unknown) (unknown) (no (unknown) (unknown) Ur Specific (units (un known) date) [place] unknown) (unknown) (no (unknown) (unknown) Ur Squamous [...] (unknown) date) unknown) (unknown) (no (unknown) (unknown) [id number] (units (unkno wn) date) unknown) (unknown) (no [...] (unknown) (unknown) : 1935 (units (unknown) date) Acct:[id number] unknown) (unknown) (no (unknown) (unknown) Date Patient [...] date) (RT-PCR) unknown) (unknown) (no (unknown) (unknown) [facility] (units (unknown) date) [address] unknown) [place] [address] (unknown) (no (unknown) (unknown) Laboratory (units (unk [...] 06/16/22 unknown) @ 21:27 by Hawa Michael [facility]) (unknown) (no (unknown) (unknown) Medication (units (unk nown) date) Instructions unknown) Recorded Confirmed Type (unknown) (no (unknown) (unknown) Meds (units (unkno wn) date) unknown) (unknown) (no (unknown) (unknown) Gallia # (Auto) (units ( unknown) date) 900 unknown) (unknown) (no (unknown) (unknown) Gallia # (Auto) (units ( unknown) date) unknown) (unknown) (no (unknown) (unknown) [place] % (Auto) (units ( unknown) date) 9.4 unknown) (unknown) (no (unknown) (unknown) Gall[place] % (Auto) (units ( unknown) date) unknown) [...] (units (unkn own) date) Hawa Michael unknown) 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IS[employer] (unknown) (no (unknown) (unknown) Psych: Patient (units [...] 06/16/22 unknown) @ 21:27 by Hawa Michael [facility]) (unknown) (no (unknown) (unknown) Temperature 98.1 [...] (unknown) Ur Specific (units (un known) date) [place] 1.020 unknown) (unknown) (no (unknown) (unknown) Ur Specific (units (un known) date) [place] unknown) (unknown) (no (unknown) (unknown) Ur Squamous [...] (unknown) (no date) (unknown) (unknown) 1.8 ng/ml 70028 -7 (unknown) (no date) (unknown) (unknown) 1.8 ng/ml (unkn own) (unknown) (no date) (unknown) (unknown) Negative (units (unkn own) unknown) (unknown) (no date) (unknown) (unknown) Negative (units 04759 -1 unknown) (unknown) (no date) (unknown) (unknown) Negative (units 44352 -3 unknown) (unknown) (no date) (unknown) (unknown) [...] (unknown) date) unknown) (unknown) (no (unknown) (unknown) [id number] (units (unkno wn) date) unknown) (unknown) (no [...] (unknown) (unknown) : 1935 (units (unknown) date) Acct:[id number] unknown) (unknown) (no (unknown) (unknown) Date Patient [...] date) (RT-PCR) unknown) (unknown) (no (unknown) (unknown) [facility] (units (unknown) date) [address] unknown) [place] [address] (unknown) (no (unknown) (unknown) Laboratory (units (unk [...] date) (Updated 06/16/22 unknown) @ 22:05 by Fernnado [place] DO) (unknown) (no (unknown) (unknown) Medication (units (unk nown) date) Instructions unknown) Recorded Confirmed Type (unknown) (no (unknown) (unknown) Meds (units (unkno wn) date) unknown) (unknown) (no (unknown) (unknown) Gallia # (Auto) (units ( unknown) date) 900 unknown) (unknown) (no (unknown) (unknown) Gallia # (Auto) (units ( unknown) date) unknown) (unknown) (no (unknown) (unknown) Gallia % (Auto) (units ( unknown) date) 9.4 unknown) (unknown) (no (unknown) (unknown) Gallia % (Auto) (units ( unknown) date) unknown) [...] (units (unkn own) date) Hawa Michael unknown) 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IS-BC (unknown) (no (unknown) (unknown) Psych: Patient (units [...] (unknown) Ur Specific (units (un known) date) Cal[place]oun 1.020 unknown) (unknown) (no (unknown) (unknown) Ur Specific (units (un known) date) [place] unknown) (unknown) (no (unknown) (unknown) Ur Squamous [...] nown) date) unknown) (unknown) (no (unknown) (unknown) [id number] (units (unkno wn) date) unknown) (unknown) (no (unknown) (unknown) 06/17/22 (units (unkno wn) date) unknown) (unknown) (no (unknown) (unknown) [address] [place] [address] (units (unknown) date) unknown) (unknown) (no (unknown) (unknown) Accession Number: (units (unknown) date) [id number] unknown) (unknown) (no (unknown) (unknown) Age/Sex: 86 / M (units (unknown) date) Date of Service: unknown) (unknown) (no (unknown) (unknown) [place], [place] (units ( unknown) date) [address] unknown) (unknown) (no (unknown) (unknown) Approved by: Feliberto (units (unknown) date) Azar Mendoza on unknown) 06/17/2022 at 10:08 (unknown) (no (unknown) (unknown) Biliary ducts: (units (unknown) date) Intrahepatic bile unknown) ducts are non-dilated. Extrahepatic bile (unknown) (no (unknown) (unknown) COMPARISON: (units (un known) date) [facility], unknown) CT, CT ABDOMEN PELVIS W CON, 06/16/2022, 21:22. (unknown) (no (unknown) (unknown) CT 06/16/2019 (units ( unknown) date) unknown) (unknown) (no (unknown) (unknown) : 1935 (units (unknown) date) Acct:[id number] unknown) (unknown) (no (unknown) (unknown) Diffusely (units [...] LIVER unknown) METS (unknown) (no (unknown) (unknown) [facility] (units (unknown) date) unknown) (unknown) [...] (unknown) date) unknown) (unknown) (no (unknown) (unknown) [id number] (units (unkno wn) date) unknown) (unknown) (no [...] (unknown) (unknown) : 1935 (units (unknown) date) Acct:[id number] unknown) (unknown) (no (unknown) (unknown) Date Patient [...] date) (RT-PCR) unknown) (unknown) (no (unknown) (unknown) [facility] (units (unknown) date) [address] unknown) [place] [address] (unknown) (no (unknown) (unknown) Laboratory (units (unk [...] wn) date) unknown) (unknown) (no (unknown) (unknown) Gallia # (Auto) (units ( unknown) date) 900 unknown) (unknown) (no (unknown) (unknown) Gallia # (Auto) (units ( unknown) date) unknown) (unknown) (no (unknown) (unknown) Gallia % (Auto) (units ( unknown) date) 9.4 unknown) (unknown) (no (unknown) (unknown) Gallia % (Auto) (units ( unknown) date) unknown) [...] (units (unkn own) date) Hawa Michael unknown) 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IS-BC (unknown) (no (unknown) (unknown) Psych: Patient (units [...] (unknown) Ur Specific (units (un known) date) Calhoun 1.020 unknown) (unknown) (no (unknown) (unknown) Ur Specific (units (un known) date) [place] unknown) (unknown) (no (unknown) (unknown) Ur Squamous [...] (unknown) date) unknown) (unknown) (no (unknown) (unknown) [id number] (units (unkno wn) date) unknown) (unknown) (no [...] (unknown) (unknown) : 1935 (units (unknown) date) Acct:[id number] unknown) (unknown) (no (unknown) (unknown) Date Patient [...] 06/17/22 unknown) @ 00:47 by Hawa Michael [facility]) (unknown) (no (unknown) (unknown) Father (units [...] date) (RT-PCR) unknown) (unknown) (no (unknown) (unknown) [facility] (units (unknown) date) [address] unknown) [place] [address] (unknown) (no (unknown) (unknown) Laboratory (units (unk [...] 06/17/22 unknown) @ 00:55 by Hawa Michael [facility]) (unknown) (no (unknown) (unknown) Medication (units (unk nown) date) Instructions unknown) Recorded Confirmed Type (unknown) (no (unknown) (unknown) Meds (units (unkno wn) date) unknown) (unknown) (no (unknown) (unknown) Gallia # (Auto) 900 (units (unknown) date) unknown) (unknown) (no (unknown) (unknown) Gallia # (Auto) (units ( unknown) date) unknown) (unknown) (no (unknown) (unknown) Gallia % (Auto) 9.4 (units (unknown) date) unknown) (unknown) (no (unknown) (unknown) Gallia % (Auto) (units ( unknown) date) unknown) [...] (units (unkn own) date) Hawa Michael unknown) 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IS-BC (unknown) (no (unknown) (unknown) Psych: Patient (units [...] 06/16/22 unknown) @ 21:27 by Hawa Michael [facility]-) (unknown) (no (unknown) (unknown) Temperature 98.1 [...] (unknown) Ur Specific (units (un known) date) Cal[place]oun 1.020 unknown) (unknown) (no (unknown) (unknown) Ur Specific (units (un known) date) [place] unknown) (unknown) (no (unknown) (unknown) Ur Squamous [...] unknown) pending, transaminitis (unknown) (no (unknown) (unknown) [id number] (units (unkno wn) date) unknown) (unknown) (no [...] (unknown) (unknown) : 1935 (units (unknown) date) Acct:[id number] unknown) (unknown) (no (unknown) (unknown) Date Patient [...] 06/17/22 unknown) @ 00:47 by Hawa Michael [facility]) (unknown) (no (unknown) (unknown) Father (units [...] date) (RT-PCR) unknown) (unknown) (no (unknown) (unknown) [facility] (units (unknown) date) [address] unknown) [place] [address] (unknown) (no (unknown) (unknown) Laboratory (units (unk [...] wn) date) unknown) (unknown) (no (unknown) (unknown) Gallia # (Auto) 900 (units (unknown) date) unknown) (unknown) (no (unknown) (unknown) Gallia # (Auto) (units ( unknown) date) unknown) (unknown) (no (unknown) (unknown) Gallia % (Auto) 9.4 (units (unknown) date) unknown) (unknown) (no (unknown) (unknown) Gallia % (Auto) (units ( unknown) date) unknown) [...] (units (unkn own) date) Hawa Michael unknown) 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IS-BC (unknown) (no (unknown) (unknown) Psych: Patient (units [...] 06/16/22 unknown) @ 21:27 by Hawa Michael [facility]) (unknown) (no (unknown) (unknown) Temperature 98.1 [...] (unknown) Ur Specific (units (un known) date) Calhoun 1.020 unknown) (unknown) (no (unknown) (unknown) Ur Specific (units (un known) date) [place] unknown) (unknown) (no (unknown) (unknown) Ur Squamous [...] unknown) pending, transaminitis (unknown) (no (unknown) (unknown) [id number] (units (unkno wn) date) unknown) (unknown) (no [...] (unknown) (unknown) : 1935 (units (unknown) date) Acct:[id number] unknown) (unknown) (no (unknown) (unknown) Date Patient [...] 06/17/22 unknown) @ 00:47 by Hawa Michael 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ISJames) (unknown) (no (unknown) (unknown) Father (units (unknown) [...] date) (RT-PCR) unknown) (unknown) (no (unknown) (unknown) [facility] (units (unknown) date) [address] unknown) [place] [address] (unknown) (no (unknown) (unknown) Laboratory (units (unk [...] 06/17/22 unknown) @ 00:55 by Hawa Michael [facility]) (unknown) (no (unknown) (unknown) Medication (units (unk nown) date) Instructions unknown) Recorded Confirmed Type (unknown) (no (unknown) (unknown) Meds (units (unkno wn) date) unknown) (unknown) (no (unknown) (unknown) Gallia # (Auto) 900 (units (unknown) date) unknown) (unknown) (no (unknown) (unknown) Gallia # (Auto) (units ( unknown) date) unknown) (unknown) (no (unknown) (unknown) Gallia % (Auto) 9.4 (units (unknown) date) unknown) (unknown) (no (unknown) (unknown) Gallia % (Auto) (units ( unknown) date) unknown) [...] (unknown) Provider: (units (unkn own) date) Hawa iMchael unknown) 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IS-BC (unknown) (no (unknown) (unknown) Psych: Patient (units [...] (unknown) Ur Specific (units (un known) date) Calhoun 1.020 unknown) (unknown) (no (unknown) (unknown) Ur Specific (units (un known) date) [place] unknown) (unknown) (no (unknown) (unknown) Ur Squamous [...] unknown) pending, transaminitis (unknown) (no (unknown) (unknown) [id number] (units (unkno wn) date) unknown) (unknown) (no [...] (unknown) (unknown) : 1935 (units (unknown) date) Acct:[id number] unknown) (unknown) (no (unknown) (unknown) Date Patient [...] date) (RT-PCR) unknown) (unknown) (no (unknown) (unknown) [facility] (units (unknown) date) [address] [place] [address] unknown) [place] [address] (unknown) (no (unknown) (unknown) Laboratory (units (unk [...] (Updated 06/17/22 unknown) @ 00:55 [facility] (unknown) (no (unknown) (unknown) Medication (units (unk nown) date) Instructions unknown) Recorded Confirmed Type (unknown) (no (unknown) (unknown) Meds (units (unkno wn) date) unknown) (unknown) (no (unknown) (unknown) Gallia # (Auto) 900 (units (unknown) date) unknown) (unknown) (no (unknown) (unknown) Gallia # (Auto) (units ( unknown) date) unknown) (unknown) (no (unknown) (unknown) Gallia % (Auto) 9.4 (units (unknown) date) unknown) (unknown) (no (unknown) (unknown) Gallia % (Auto) (units ( unknown) date) unknown) [...] (units (unkn own) date) Hawa Michael unknown) 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IS-BC (unknown) (no (unknown) (unknown) Psych: Patient (units [...] (unknown) Ur Specific (units (un known) date) Calhoun 1.020 unknown) (unknown) (no (unknown) (unknown) Ur Specific (units (un known) date) [place] unknown) (unknown) (no (unknown) (unknown) Ur Squamous [...] unknown) pending, transaminitis (unknown) (no (unknown) (unknown) [id number] (units (unkno wn) date) unknown) (unknown) (no [...] (unknown) (unknown) : 1935 (units (unknown) date) Acct:[id number] unknown) (unknown) (no (unknown) (unknown) Date Patient [...] 06/17/22 unknown) @ 00:47 by Hawa Michael [facility]) (unknown) (no (unknown) (unknown) Father (units [...] date) (RT-PCR) unknown) (unknown) (no (unknown) (unknown) [facility] (units (unknown) date) [address] unknown) [place] [address] (unknown) (no (unknown) (unknown) Laboratory (units (unk [...] wn) date) unknown) (unknown) (no (unknown) (unknown) Gallia # (Auto) 900 (units (unknown) date) unknown) (unknown) (no (unknown) (unknown) Gallia # (Auto) (units ( unknown) date) unknown) (unknown) (no (unknown) (unknown) Gallia % (Auto) 9.4 (units (unknown) date) unknown) (unknown) (no (unknown) (unknown) Gallia % (Auto) (units ( unknown) date) unknown) [...] (units (unkn own) date) Hawa Michael unknown) 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IS-BC (unknown) (no (unknown) (unknown) Psych: Patient (units [...] 06/16/22 unknown) @ 21:27 by Hawa Michael [facility]) (unknown) (no (unknown) (unknown) Temperature 98.1 [...] (unknown) Ur Specific (units (un known) date) Calhoun 1.020 unknown) (unknown) (no (unknown) (unknown) Ur Specific (units (un known) date) [place] unknown) (unknown) (no (unknown) (unknown) Ur Squamous [...] 3+, leuks, RBC (unknown) (no (unknown) (unknown) [id number] (units (unkno wn) date) unknown) (unknown) (no [...] (unknown) (unknown) : 1935 (units (unknown) date) Acct:[id number] unknown) (unknown) (no (unknown) (unknown) Date Patient [...] 06/17/22 unknown) @ 00:47 by Hawa Michael [facility]) (unknown) (no (unknown) (unknown) Father (units [...] date) (RT-PCR) unknown) (unknown) (no (unknown) (unknown) [facility] (units (unknown) date) [address] unknown) [place] [address] (unknown) (no (unknown) (unknown) Laboratory (units (unk [...] wn) date) unknown) (unknown) (no (unknown) (unknown) Gallia # (Auto) 900 (units (unknown) date) unknown) (unknown) (no (unknown) (unknown) Gallia # (Auto) (units ( unknown) date) unknown) (unknown) (no (unknown) (unknown) Gallia % (Auto) 9.4 (units (unknown) date) unknown) (unknown) (no (unknown) (unknown) Gallia % (Auto) (units ( unknown) date) unknown) [...] (units (unkn own) date) Hawa Michael unknown) 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IS-BC (unknown) (no (unknown) (unknown) Psych: Patient (units [...] 06/16/22 unknown) @ 21:27 by Hawa Michael [facility]) (unknown) (no (unknown) (unknown) Temperature 98.1 [...] (unknown) Ur Specific (units (un known) date) Calhoun 1.020 unknown) (unknown) (no (unknown) (unknown) Ur Specific (units (un known) date) [place] unknown) (unknown) (no (unknown) (unknown) Ur Squamous [...] 3+, leuks, RBC (unknown) (no (unknown) (unknown) [id number] (units (unkno wn) date) unknown) (unknown) (no [...] (unknown) (unknown) : 1935 (units (unknown) date) Acct:[id number] unknown) (unknown) (no (unknown) (unknown) Date Patient [...] date) (RT-PCR) unknown) (unknown) (no (unknown) (unknown) [facility] (units (unknown) date) [address] unknown) [place] [address] (unknown) (no (unknown) (unknown) Laboratory (units (unk [...] wn) date) unknown) (unknown) (no (unknown) (unknown) Gallia # (Auto) 900 (units (unknown) date) unknown) (unknown) (no (unknown) (unknown) Gallia # (Auto) (units ( unknown) date) unknown) (unknown) (no (unknown) (unknown) Gallia % (Auto) 9.4 (units (unknown) date) unknown) (unknown) (no (unknown) (unknown) Gallia % (Auto) (units ( unknown) date) unknown) [...] (units (unkn own) date) Hawa Michael unknown) 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IS-BC (unknown) (no (unknown) (unknown) Psych: Patient (units [...] 06/16/22 unknown) @ 21:27 by Hawa Michael [facility]) (unknown) (no (unknown) (unknown) Temperature 98.1 [...] (unknown) Ur Specific (units (un known) date) Calhoun 1.020 unknown) (unknown) (no (unknown) (unknown) Ur Specific (units (un known) date) [place] unknown) (unknown) (no (unknown) (unknown) Ur Squamous [...] 3+, leuks, RBC (unknown) (no (unknown) (unknown) [id number] (units (unkno wn) date) unknown) (unknown) (no [...] (unknown) (unknown) : 1935 (units (unknown) date) Acct:[id number] unknown) (unknown) (no (unknown) (unknown) DVT/VTE (units [...] 06/17/22 unknown) @ 00:47 by Hawa Michael [facility]) (unknown) (no (unknown) (unknown) Father (units [...] date) (RT-PCR) unknown) (unknown) (no (unknown) (unknown) [facility] (units (unknown) date) [address] unknown) [place] [address] (unknown) (no (unknown) (unknown) Laboratory (units (unk [...] 06/17/22 unknown) @ 00:55 by Hawa Michael [facility]) (unknown) (no (unknown) (unknown) Medication (units (unk nown) date) Instructions unknown) Recorded Confirmed Type (unknown) (no (unknown) (unknown) Meds (units (unkno wn) date) unknown) (unknown) (no (unknown) (unknown) Gallia # (Auto) 900 (units (unknown) date) unknown) (unknown) (no (unknown) (unknown) Gallia # (Auto) (units ( unknown) date) unknown) (unknown) (no (unknown) (unknown) Gallia % (Auto) 9.4 (units (unknown) date) unknown) (unknown) (no (unknown) (unknown) Gallia % (Auto) (units ( unknown) date) unknown) [...] (units (unkn own) date) Hawa Michael unknown) 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IS-BC (unknown) (no (unknown) (unknown) Psych: Patient (units [...] (unknown) Ur Specific (units (un known) date) Calhoun 1.020 unknown) (unknown) (no (unknown) (unknown) Ur Specific (units (un known) date) [place] unknown) (unknown) (no (unknown) (unknown) Ur Squamous [...] (unknown) -consult for (units (u nknown) date) PT/OT/FISH TENDER-social unknown) work: Concerned patient is not safe [...] 3+, leuks, RBC (unknown) (no (unknown) (unknown) [id number] (units (unkno wn) date) unknown) (unknown) (no [...] (unknown) (unknown) : 1935 (units (unknown) date) Acct:[id number] unknown) (unknown) (no (unknown) (unknown) DVT/VTE (units [...] 06/17/22 unknown) @ 00:47 by Hawa Michael [facility]) (unknown) (no (unknown) (unknown) Father (units [...] date) (RT-PCR) unknown) (unknown) (no (unknown) (unknown) [facility] (units (unknown) date) [address] unknown) [place] [address] (unknown) (no (unknown) (unknown) Laboratory (units (unk [...] (Updated 06/17/22 unknown) @ 00:55 by [facility] (unknown) (no (unknown) (unknown) Medication (units (unk nown) date) Instructions unknown) Recorded Confirmed Type (unknown) (no (unknown) (unknown) Meds (units (unkno wn) date) unknown) (unknown) (no (unknown) (unknown) Gallia # (Auto) 900 (units (unknown) date) unknown) (unknown) (no (unknown) (unknown) Gallia # (Auto) (units ( unknown) date) unknown) (unknown) (no (unknown) (unknown) Gallia % (Auto) 9.4 (units (unknown) date) unknown) (unknown) (no (unknown) (unknown) Gallia % (Auto) (units ( unknown) date) unknown) [...] (units (unkn own) date) Hawa Michael unknown) 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IS-BC (unknown) (no (unknown) (unknown) Psych: Patient (units [...] wn) date) By:<Electronically unknown) signed by Hawa [facility] Alec> (unknown) (no (unknown) (unknown) Skin: [...] 06/16/22 unknown) @ 21:27 by Hawa Michael [facility]) (unknown) (no (unknown) (unknown) Surrogate (units [...] (unknown) Ur Specific (units (un known) date) Calhoun 1.020 unknown) (unknown) (no (unknown) (unknown) Ur Specific (units (un known) date) [place]oun unknown) (unknown) (no (unknown) (unknown) Ur Squamous [...] consult (units (unknown) date) evaluations by unknown) PT/OT/FISH TENDER. (unknown) (no (unknown) (unknown) wheezes, rhonchi, (units [...] (unknown) -consult for (units (u nknown) date) PT/OT/FISH TENDER-social unknown) work: Concerned patient is not safe [...] 3+, leuks, RBC (unknown) (no (unknown) (unknown) [id number] (units (unkno wn) date) unknown) (unknown) (no [...] (unknown) (unknown) : 1935 (units (unknown) date) Acct:[id number] unknown) (unknown) (no (unknown) (unknown) DVT/VTE (units [...] 06/17/22 unknown) @ 00:47 by Hawa Michael [facility]) (unknown) (no (unknown) (unknown) Father (units [...] date) (RT-PCR) unknown) (unknown) (no (unknown) (unknown) [facility] (units (unknown) date) [address] unknown) [place] [address] (unknown) (no (unknown) (unknown) Laboratory (units (unk [...] 06/17/22 unknown) @ 00:55 by Hawa Michael [facility]) (unknown) (no (unknown) (unknown) Medication (units (unk nown) date) Instructions unknown) Recorded Confirmed Type (unknown) (no (unknown) (unknown) Meds (units (unkno wn) date) unknown) (unknown) (no (unknown) (unknown) Gallia # (Auto) 900 (units (unknown) date) unknown) (unknown) (no (unknown) (unknown) Gallia # (Auto) (units ( unknown) date) unknown) (unknown) (no (unknown) (unknown) Gallia % (Auto) 9.4 (units (unknown) date) unknown) (unknown) (no (unknown) (unknown) Gallia % (Auto) (units ( unknown) date) unknown) [...] (unknown) Patient: (units (unkno wn) date) Yoseph Cradoso unknown) MR#: [id number] (unknown) (no (unknown) (unknown) [...] (units (unkn own) date) Hawa Michael unknown) 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IS-BC (unknown) (no (unknown) (unknown) Psych: Patient (units [...] wn) date) By:<Electronically unknown) signed by Hawa [facility] Michael> (unknown) (no (unknown) (unknown) Skin: Warm [...] (unkn own) date) decision maker: unknown) Aletha Isarelode (unknown) (no (unknown) (unknown) Temperature 98.1 (units [...] (unknown) Ur Specific (units (un known) date) Calhoun 1.020 unknown) (unknown) (no (unknown) (unknown) Ur Specific (units (un known) date) [place] unknown) (unknown) (no (unknown) (unknown) Ur Squamous [...] consult (units (unknown) date) evaluations by unknown) PT/OT/FISH TENDER. (unknown) (no (unknown) (unknown) wheezes, rhonchi, (units [...] (unknown) date) unknown) (unknown) (no (unknown) (unknown) [id number] (units (unkno wn) date) unknown) (unknown) (no [...] date) Phosphatase unknown) (unknown) (no (unknown) (unknown) Edgar given (units (unknown) date) there history of [...] (unknown) (unknown) : 1935 (units (unknown) date) Acct:[id number] unknown) (unknown) (no (unknown) (unknown) Date of Service: (units (unknown) date) 06/16/22 unknown) (unknown) (no (unknown) (unknown) Deep Vein (units (unkn own) date) Thrombosis/Pulmona unknown) ry Embolism Present on Admission: No (unknown) (no (unknown) (unknown) Diagnosed at (units (u nknown) date) [facility] unknown) [facility]. Urine culture (unknown) (no (unknown) [...] 06/17/22 unknown) @ 00:47 by Hawa Michael [facility]) (unknown) (no (unknown) (unknown) Father (units [...] (unknown) date) Dr. Weathers at the unknown) [facility]. He did not (unknown) (no (unknown) (unknown) [...] (unknown) date) unknown) (unknown) (no (unknown) (unknown) [facility] (units (unknown) date) [address] unknown) [place] [address] (unknown) (no (unknown) (unknown) Laboratory (units (unk [...] by CASEY Crystal) (unknown) (no (unknown) (unknown) Gallia # (Auto) (units ( unknown) date) [address] unknown) (unknown) (no (unknown) (unknown) Gallia # (Auto) (units ( unknown) date) unknown) (unknown) (no (unknown) (unknown) Gallia % (Auto) (units ( unknown) date) 13.3 unknown) (unknown) (no (unknown) (unknown) Gallia % (Auto) (units ( unknown) date) unknown) [...] 06/16/22 unknown) @ 21:27 by Hawa Michael [facility]) (unknown) (no (unknown) (unknown) Suspect this (units (u nknown) date) reflected SIRS unknown) rather than sepsis. However, he does have evidence (unknown) (no (unknown) (unknown) Temperature 96.3 (units (unknown) date) F L unknown) (unknown) (no (unknown) (unknown) They did they (units ( unknown) date) might prefer to unknown) proceed with care at the [facility] (unknown) (no (unknown) (unknown) Time Spent [...] (unknown) Ur Specific (units (un known) date) Calhoun 1.020 unknown) (unknown) (no (unknown) (unknown) Ur Specific (units (un known) date) [place] unknown) (unknown) (no (unknown) (unknown) Ur Squamous [...] ( unknown) date) inflammatory unknown) pulmonary opacities. [id number] (unknown) (no (unknown) (unknown) is status post [...] and follows with (unknown) (no (unknown) (unknown) [id number] (units (unknown) date) n-left pleural unknown) effusions. [...] but no (unknown) (no (unknown) (unknown) the transport tank technician (units (unknown) date) regularly. unknown) (unknown) (no [...] (unknown) date) unknown) (unknown) (no (unknown) (unknown) [id number] (units (unkno wn) date) unknown) (unknown) (no [...] (unknown) (unknown) : 1935 (units (unknown) date) Acct:[id number] unknown) (unknown) (no (unknown) (unknown) Date of [...] 06/17/22 unknown) @ 00:47 by Hawa Michael [facility]) (unknown) (no (unknown) (unknown) Father (units [...] (unknown) date) Dr. Weathers at the unknown) [facility].? He did not (unknown) (no (unknown) (unknown) [...] (unknown) date) unknown) (unknown) (no (unknown) (unknown) [facility] (units (unknown) date) [address] [place] [address] unknown) [place] [address] (unknown) (no (unknown) (unknown) Laboratory (units (unk [...] 06/17/22 unknown) @ 00:55 by Hawa Michael [facility]) (unknown) (no (unknown) (unknown) Gallia # (Auto) (units ( unknown) date) [address] unknown) (unknown) (no (unknown) (unknown) Gallia # (Auto) (units ( unknown) date) unknown) (unknown) (no (unknown) (unknown) Gallia % (Auto) (units ( unknown) date) 15.8 H unknown) (unknown) (no (unknown) (unknown) Gallia % (Auto) (units ( unknown) date) unknown) [...] 06/16/22 unknown) @ 21:27 by Hawa Michael [facility]) (unknown) (no (unknown) (unknown) Temperature 96.8 [...] (units (unknown) date) serial f/u w/a unknown) transport 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 [id number] (unknown) (no (unknown) (unknown) liver and spleen [...] and follows with (unknown) (no (unknown) (unknown) fljjr-[id number]-pad (units (unknown) date) n-left pleural unknown) effusions.? There is additional note of the (unknown) (no (unknown) (unknown) scalp (units (unkno wn) date) approximately 2 unknown) years ago.? He describes having had a 7 an inch incision.? (unknown) (no (unknown) (unknown) the transport tank technician (units (unknown) date) regularly. 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 (units (u nknown) date) unknown) (unknown) [...] (unknown) (unknown) : 1935 (units (unknown) date) Acct:[id number] unknown) (unknown) (no (unknown) (unknown) Date of Service: (units (unknown) date) 06/16/22 unknown) (unknown) (no (unknown) (unknown) Deep Vein (units (unkn own) date) Thrombosis/Pulmona unknown) ry Embolism Present on Admission: No (unknown) (no (unknown) (unknown) Diagn[facility] at (units (u nknown) date[facility] Urine culture (unknown) (no [...] (unknown) date) unknown) (unknown) (no (unknown) (unknown) [facility] (units (unknown) date) [address] unknown) [place] [address] (unknown) (no (unknown) (unknown) Laboratory (units (unk [...] 06/17/22 unknown) @ 00:55 by Hawa Michael [facility]) (unknown) (no (unknown) (unknown) Gallia # (Auto) (units ( unknown) date) 1100 H unknown) (unknown) (no (unknown) (unknown) Gallia # (Auto) (units ( unknown) date) unknown) (unknown) (no (unknown) (unknown) Gallia % (Auto) (units ( unknown) date) 15.8 H unknown) (unknown) (no (unknown) (unknown) Gallia % (Auto) (units ( unknown) date) unknown) [...] 06/16/22 unknown) @ 21:27 by Hawa Michael [facility]) (unknown) (no (unknown) (unknown) Suspect this [...] (units (unknown) date) serial f/u w/a unknown) transport 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 Reeder) at [facility] (unknown) (no (unknown) (unknown) ago.? He now [...] ( unknown) date) inflammatory unknown) pulmonary opacities.? Lbhy-fl-apdpfmxw (unknown) (no (unknown) (unknown) intervention or (units [...] biopsy and potential (unknown) (no (unknown) (unknown) nffni-iiotcxq-ftj (units (unknown) date) n-left pleural unknown) effusions.? 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 (units (u nknown) date) unknown) (unknown) [...] (unknown) (unknown) : 1935 (units (unknown) date) Acct:[id number] unknown) (unknown) (no (unknown) (unknown) Date of Service: (units (unknown) date) 06/16/22 unknown) (unknown) (no (unknown) (unknown) Deep Vein (units (unkn own) date) Thrombosis/Pulmona unknown) ry Embolism Present on Admission: No (unknown) (no (unknown) (unknown) Diagnosed at (units (u nknown) date) [facility] Urine culture (unknown) (no [...] 06/17/22 unknown) @ 00:47 by Hawa Michael [facility]) (unknown) (no (unknown) (unknown) Father (units [...] this patient's care (unknown) (no (unknown) (unknown) [facility] (units (unknown) date) [address] unknown) [place] [address] (unknown) (no (unknown) (unknown) Laboratory (units (unk [...] by JOSE Crystal) (unknown) (no (unknown) (unknown) Gallia # (Auto) (units ( unknown) date) 1000 H unknown) (unknown) (no (unknown) (unknown) Gallia # (Auto) (units ( unknown) date) unknown) (unknown) (no (unknown) (unknown) Gallia % (Auto) (units ( unknown) date) 15.4 H unknown) (unknown) (no (unknown) (unknown) Gallia % (Auto) (units ( unknown) date) unknown) [...] 06/16/22 unknown) @ 21:27 by Hawa Michael [facility] (unknown) (no (unknown) (unknown) Suspect this [...] nown) date) unknown) (unknown) (no (unknown) (unknown) [id number] (units (unkno wn) date) unknown) (unknown) (no (unknown) (unknown) 06/21/22 (units (unkno wn) date) unknown) (unknown) (no (unknown) (unknown) [address] [place] [address] (units (unknown) date) unknown) (unknown) (no (unknown) (unknown) Accession (units (unkn own) date) Number: unknown) [id number] (unknown) (no (unknown) (unknown) Age/Sex: 86 / M (units (unknown) date) Date of Service: unknown) (unknown) (no (unknown) (unknown) [place] (units ( unknown) date) [address] unknown) (unknown) (no (unknown) (unknown) Approved by: (units (u nknown) date) Johnathan Lane unknown) Azar on 06/21/2022 at 15:07 (unknown) (no (unknown) (unknown) Biopsy site: (units (u nknown) date) Posterior right unknown) lobe of the liver (unknown) (no (unknown) (unknown) COMPARISON: (units (un known) date) [facility], unknown) CT, CT ABDOMEN PELVIS W CON, 06/16/2022, 21:22. (unknown) (no (unknown) (unknown) CT Scan Report (units (unknown) date) unknown) (unknown) (no (unknown) (unknown) CT guidance, a (units (unknown) date) core biopsy unknown) trocar and needle set was advanced to the biopsy (unknown) (no (unknown) (unknown) Complications: (units (unknown) date) None. unknown) (unknown) (no (unknown) (unknown) : 1935 (units (unknown) date) Acct:[id number] unknown) (unknown) (no (unknown) (unknown) Dictated by: [...] history of melanoma (unknown) (no (unknown) (unknown) [facility] (units (unknown) date) unknown) (unknown) [...] brought to the CT unknown) suite and scout leaser spiral CT imaging was (unknown) (no (unknown) [...] Dr. Arianna Reeder, (unknown) (no (unknown) (unknown) [id number] (units (unkno wn) date) unknown) (unknown) (no [...] (unknown) (unknown) : 1935 (units (unknown) date) Acct:[id number] unknown) (unknown) (no (unknown) (unknown) Date Patient (units (u nknown) date) Seen: 06/19/22 unknown) (unknown) (no (unknown) (unknown) Date of Service: (units (unknown) date) 06/16/22 unknown) (unknown) (no (unknown) (unknown) Deep Vein (units (unkn own) date) Thrombosis/Pulmona unknown) ry Embolism Present on Admission: No (unknown) (no (unknown) (unknown) Diagnosed at (units (u nknown) date) [facility] Urine culture (unknown) (no [...] 06/17/22 unknown) @ 00:47 by Hawa Michael [facility]) (unknown) (no (unknown) (unknown) Father (units [...] (unknown) date) unknown) (unknown) (no (unknown) (unknown) [facility] (units (unknown) date) [address] unknown) [place] [address] (unknown) (no (unknown) (unknown) Laboratory (units (unk [...] 06/17/22 unknown) @ 00:55 by Hawa Michael [facility]) (unknown) (no (unknown) (unknown) Gallia # (Auto) (units ( unknown) date) 1000 H unknown) (unknown) (no (unknown) (unknown) Gallia # (Auto) (units ( unknown) date) unknown) (unknown) (no (unknown) (unknown) Gallia % (Auto) (units ( unknown) date) 15.4 H unknown) (unknown) (no (unknown) (unknown) Gallia % (Auto) (units ( unknown) date) unknown) [...] 06/16/22 unknown) @ 21:27 by Hawa Michael [facility]) (unknown) (no (unknown) (unknown) Temperature 97.0 [...] unknown) date) unknown) (unknown) (no (unknown) (unknown) [id number] (units (unkno wn) date) unknown) (unknown) (no [...] date) unknown) (unknown) (no (unknown) (unknown) [address] [place] [address] (units (unknown) date) unknown) (unknown) (no (unknown) [...] (unknown) (unknown) Accession Number: (units (unknown) date) [id number] ?? unknown) (unknown) (no (unknown) (unknown) Accession Number: (units (unknown) date) [id number] ?? unknown) (unknown) (no (unknown) (unknown) Accession Number: (units (unknown) date) [id number] ?? unknown) (unknown) (no (unknown) (unknown) Acct:[id number] (units (unknown) date) unknown) (unknown) (no (unknown) [...] PO DAILY DAVID (unknown) (no (unknown) (unknown) [place], [place] (units ( unknown) date) [address] unknown) (unknown) (no (unknown) (unknown) [place] (units [...] (unknown) (unknown) COMPARISON:? 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 Bilateral unknown) kngd-fa-sfkupdxf pleural effusions, slightly (unknown) (no (unknown) (unknown) Lungs and pleura:? (units (unknown) date) Low lung volumes.? unknown) Possible mild right and retrocardiac basal (unknown) (no (unknown) (unknown) Lymph # (Auto) (units (unknown) date) (0092-8915) /uL unknown) (unknown) (no (unknown) (unknown) Lymph # (Auto) (units (unknown) date) 400 L (0977-0824) unknown) /uL (unknown) (no (unknown) (unknown) Lymph [...] date) unknown) (unknown) (no (unknown) (unknown) MR#: [id number] (units (unknown) date) unknown) (unknown) (no (unknown) [...] 06/17/22 unknown) @ 00:55 by Hawa Michael [facility]) (unknown) (no (unknown) (unknown) Medical decision (units (unknown) date) making narrative: unknown) (unknown) (no (unknown) (unknown) Medical records (units (unknown) date) reviewed: ER unknown) visits from a few days ago (unknown) (no (unknown) (unknown) Medication (units (unk nown) date) Instructions unknown) Recorded Confirmed (unknown) (no (unknown) (unknown) Eiie-yu-ddaueadp, (units (unknown) date) unknown) (unknown) (no (unknown) (unknown) Mode of arrival: (units (unknown) date) Wheelchair unknown) (unknown) (no (unknown) (unknown) Gallia # (Auto) (units ( unknown) date) (0-900) /uL unknown) (unknown) (no (unknown) (unknown) Gallia # (Auto) 900 (units (unknown) date) (0-900) /uL unknown) (unknown) (no (unknown) (unknown) Gallia % (Auto) (units ( unknown) date) (3-14) % unknown) (unknown) (no (unknown) (unknown) Gallia % (Auto) 9.4 (units (unknown) date) (3-14) [...] Neut # (Auto) (units ( unknown) date) (1197-2749) /uL unknown) (unknown) (no (unknown) (unknown) Neut # (Auto) (units ( unknown) date) 8200 H (5117-9440) unknown) /uL (unknown) (no (unknown) (unknown) Neut [...] (4.5-11.0) X103/uL unknown) (unknown) (no (unknown) (unknown) [facility] (units (unknown) date) ER for [...] hands with 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 and he was concern for patient's welfare [...] a follow-up ultrasound-guided (unknown) (no (unknown) (unknown) [id number] (units (unkno wn) date) unknown) (unknown) (no (unknown) (unknown) 06/20/22 (units (unkno wn) date) unknown) (unknown) (no (unknown) (unknown) [address] (units (unknown) date) unknown) (unknown) (no (unknown) (unknown) 1st rib, (units (unkno wn) date) unknown) (unknown) (no (unknown) (unknown) Accession (units (unkn own) date) Number: unknown) [id number] (unknown) (no (unknown) (unknown) Additional (units (unk nown) date) findings: unknown) (unknown) (no (unknown) (unknown) After the (units (unkn own) date) administration of unknown) intravenous contrast, 3.0 mm axial sections (unknown) (no (unknown) (unknown) Age/Sex: 86 / M (units (unknown) date) Date of Service: unknown) (unknown) (no (unknown) (unknown) [place] (units ( unknown) date) [address] unknown) (unknown) (no (unknown) (unknown) Approved by: [...] (unknown) (unknown) COMPARISON: (units (un known) date) [facility], unknown) CT, CT CHEST [facility], 06/16/2022, 14:03. [place] (unknown) (no (unknown) (unknown) CT HEAD/BRAIN WO (units (unknown) date) CON, 06/16/2022, unknown) 14:03. (unknown) (no (unknown) (unknown) CT Scan Report (units (unknown) date) unknown) (unknown) (no (unknown) (unknown) : 1935 (units (unknown) date) Acct:[id number] unknown) (unknown) (no (unknown) (unknown) Dictated by: [...] date) Excellent. unknown) (unknown) (no (unknown) (unknown) [facility] (units (unknown) date) unknown) (unknown) [...] (unknown) date) unknown) (unknown) (no (unknown) (unknown) [id number] (units (unkno wn) date) unknown) (unknown) (no [...] (unknown) (unknown) : 1935 (units (unknown) date) Acct:[id number] unknown) (unknown) (no (unknown) (unknown) Date Patient [...] (Reviewed 06/17/22 unknown) @ 00:47 [facility] (unknown) (no (unknown) (unknown) Father (units (unknown) [...] this patient's care (unknown) (no (unknown) (unknown) [facility] (units (unknown) date) [address] unknown) [place] [address] (unknown) (no (unknown) (unknown) Laboratory (units (unk [...] by JOSE Crystal) (unknown) (no (unknown) (unknown) Gallia # (Auto) (units ( unknown) date) 1000 H unknown) (unknown) (no (unknown) (unknown) Gallia % (Auto) (units ( unknown) date) 14.7 [...] 06/16/22 unknown) @ 21:27 by Hawa Michael [facility]) (unknown) (no (unknown) (unknown) Temperature 97.1 [...] Reeder and updated (unknown) (no (unknown) (unknown) [id number] (units (unkno wn) date) unknown) (unknown) (no [...] (unknown) (unknown) : 1935 (units (unknown) date) Acct:[id number] unknown) (unknown) (no (unknown) (unknown) Date Patient (units (u nknown) date) Seen: 06/20/22 unknown) (unknown) (no (unknown) (unknown) Date of Service: (units (unknown) date) 06/16/22 unknown) (unknown) (no (unknown) (unknown) Deep Vein (units (unkn own) date) Thrombosis/Pulmona unknown) ry Embolism Present on Admission: No (unknown) (no (unknown) (unknown) Diagnosed at (units (u nknown) date) [facility].? Urine culture (unknown) (no [...] 06/17/22 unknown) @ 00:47 by Hawa Michael [facility]) (unknown) (no (unknown) (unknown) Father (units [...] (unknown) date) unknown) (unknown) (no (unknown) (unknown) [facility] (units (unknown) date) [address] unknown) [place] [address] (unknown) (no (unknown) (unknown) Laboratory (units (unk [...] by JOSE Crystal) (unknown) (no (unknown) (unknown) Gallia # (Auto) (units ( unknown) date) 1000 H unknown) (unknown) (no (unknown) (unknown) Gallia % (Auto) (units ( unknown) date) 14.7 [...] 06/16/22 unknown) @ 21:27 by Hawa Michael [facility]) (unknown) (no (unknown) (unknown) Temperature 97.1 [...] over the last few (units (unknown) date) months.?Manager Aviation unknown) consulted. (unknown) (no (unknown) (unknown) today; [...] (unknown) (no date) (unknown) (unknown) Comment: (units 73589 -1 unknown) (unknown) (no date) (unknown) (unknown) Comment: (units (unkn own) unknown) Result panel 268 (unknown) (no (unknown) (unknown) (no value) (units (unk nown) date) unknown) (unknown) (no (unknown) (unknown) (past 8 hours): (units (unknown) date) unknown) (unknown) (no (unknown) (unknown) [id number] (units (unkno wn) date) unknown) (unknown) (no [...] (unknown) (unknown) : 1935 (units (unknown) date) Acct:[id number] unknown) (unknown) (no (unknown) (unknown) Date Patient [...] (unknown) date) unknown) (unknown) (no (unknown) (unknown) [facility] (units (unknown) date) [address] unknown) [place] [address] (unknown) (no (unknown) (unknown) Labs (units (unkno [...] Reeder and updated (unknown) (no (unknown) (unknown) [id number] (units (unkno wn) date) unknown) (unknown) (no [...] (unknown) (unknown) : 1935 (units (unknown) date) Acct:[id number] unknown) (unknown) (no (unknown) (unknown) Date Patient (units (u nknown) date) Seen: 06/20/22 unknown) (unknown) (no (unknown) (unknown) Date of Service: (units (unknown) date) 06/16/22 unknown) (unknown) (no (unknown) (unknown) Deep Vein (units (unkn own) date) Thrombosis/Pulmona unknown) ry Embolism Present on Admission: No (unknown) (no (unknown) (unknown) Diagnosed at (units (u nknown) date) [facility] Urine culture (unknown) (no [...] (unknown) date) unknown) (unknown) (no (unknown) (unknown) [facility] (units (unknown) date) [address] unknown) [place] [address] (unknown) (no (unknown) (unknown) Labs (units (unkno [...] 06/16/22 unknown) @ 21:27 by Hawa Michael [facility] (unknown) (no (unknown) (unknown) Temperature 97.1 [...] over the last few (units (unknown) date) months.?Manager Aviation unknown) consulted. (unknown) (no (unknown) (unknown) today. [...] in 1 (unknown) (no (unknown) (unknown) [address] (units (unknown) date) unknown) (unknown) (no (unknown) (unknown) [address] [place] [address] (units (unknown) date) [address], unknown) [place], [place] [id number] (unknown) (no (unknown) (unknown) [id number] (units (unkno wn) date) unknown) (unknown) (no (unknown) (unknown) [place], [place] (units ( unknown) date) [address] unknown) (unknown) (no (unknown) (unknown) As part [...] description: . unknown) (unknown) (no (unknown) (unknown) [facility] (units (unknown) date) unknown) (unknown) (no (unknown) (unknown) [facility] Accession (units ( unknown) date) Number: unknown) [id number] (unknown) (no (unknown) (unknown) LIVER TISSUE: (units ( unknown) date) unknown) (unknown) (no (unknown) (unknown) [facility] (units (unknown) date) [place] [facility] unknown) (unknown) (no (unknown) (unknown) Liver, Needle (units ( unknown) date) Core Biopsies: unknown) (unknown) (no (unknown) (unknown) MD Donovan Mckenzie (units (unknown) date) Phone: unknown) [phone] (unknown) (no (unknown) (unknown) (units (unknown) date) Dictating Dr: unknown) Tommy Molina MD (unknown) (no (unknown) (unknown) MRV 06/23/2022 (units (unknown) date) 1317 Local unknown) (unknown) (no (unknown) (unknown) Material (units (unkno wn) date) submitted: . unknown) (unknown) (no (unknown) (unknown) Tommy Szymanski (units (unkn own) date) MD Jesse, PhD, unknown) Pathologist (unknown) (no (unknown) (unknown) NPI- [id number] (units (unknown) date) unknown) (unknown) (no (unknown) [...] (unknown) date) unknown) (unknown) (no (unknown) (unknown) [id number] (units (unkno wn) date) unknown) (unknown) (no [...] unknown) (unknown) (no (unknown) (unknown) Consult to FISH TENDER - (units (unknown) date) Skidder unknown) Routine (unknown) (no (unknown) (unknown) Consult [...] (unknown) (unknown) : 1935 (units (unknown) date) Acct:[id number] unknown) (unknown) (no (unknown) (unknown) Date Patient [...] 06/17/22 unknown) @ 00:47 by Hawa Michael [facility]) (unknown) (no (unknown) (unknown) Father (units [...] twice a day (unknown) (no (unknown) (unknown) [facility] (units (unknown) date) [address] unknown) [place] [address] (unknown) (no (unknown) (unknown) Labs (units (unkno wn) date) unknown) (unknown) (no (unknown) (unknown) Lucien Lan (units (unknown) date) MD Yudi [Primary unknown) Care Provider] (unknown) (no (unknown) (unknown) FISH TENDER Consult (units (un known) date) needed for:: unknown) [facility] Need (unknown) (no (unknown) (unknown) Medical History (units (unknown) date) (Updated 06/17/22 unknown) @ 00:55 [facility] (unknown) (no (unknown) (unknown) Mother (units (unknown) [...] (units (unknown) date) Set up HH unknown) RN/PT/OT/BOAT PATCHER PLASTIC for discharge home (unknown) (no (unknown) (unknown) [...] 06/16/22 unknown) @ 21:27 by Hawa Michael [facility]) (unknown) (no (unknown) (unknown) Upon admit [...] Reeder and updated (unknown) (no (unknown) (unknown) [id number] (units (unkno wn) date) unknown) (unknown) (no [...] unknown) (unknown) (no (unknown) (unknown) Consult to FISH TENDER - (units (unknown) date) Skidder unknown) Routine (unknown) (no (unknown) (unknown) Consult [...] (unknown) (unknown) : 1935 (units (unknown) date) Acct:[id number] unknown) (unknown) (no (unknown) (unknown) Date Patient [...] (unknown) Diagnosed at (units (u nknown) date) [facility]) [facility].? Urine culture (unknown) (no [...] 06/17/22 unknown) @ 00:47 by Hawa Michael [facility]) (unknown) (no (unknown) (unknown) Father (units [...] are negative to (unknown) (no (unknown) (unknown) [facility] (units (unknown) date) [address] [place] [address] unknown) [place] [address] (unknown) (no (unknown) (unknown) Labs (units (unkno wn) date) unknown) (unknown) (no (unknown) (unknown) Lucien Lan (units (unknown) date) MD Yudi [Primary unknown) Care Provider] (unknown) (no (unknown) (unknown) MNA 10 (at risk (units (unknown) date) for malnutrition), unknown) diet recall suggesting inadequate (unknown) (no (unknown) (unknown) FISH TENDER Consult (units (un known) date) needed for:: [...] (units (unknown) date) Set up HH unknown) RN/PT/OT/BOAT PATCHER PLASTIC for discharge home (unknown) (no (unknown) (unknown) [...] over the last few (units (unknown) date) months.?Manager Aviation unknown) consulted. (unknown) (no (unknown) (unknown) pacemaker [...] (unknown) date) unknown) (unknown) (no (unknown) (unknown) [id number] (units (unkno wn) date) unknown) (unknown) (no [...] unknown) (unknown) (no (unknown) (unknown) Consult to FISH TENDER - (units (unknown) date) Skidder unknown) Routine (unknown) (no (unknown) (unknown) Consult [...] (unknown) (unknown) : 1935 (units (unknown) date) Acct:[id number] unknown) (unknown) (no (unknown) (unknown) Date Patient [...] (Reviewed 06/17/22 unknown) @ 00:47 [facility] (unknown) (no (unknown) (unknown) Father (units (unknown) [...] twice a day (unknown) (no (unknown) (unknown) [facility] (units (unknown) date) [address] unknown) [place] [address] (unknown) (no (unknown) (unknown) Labs (units (unkno wn) date) unknown) (unknown) (no (unknown) (unknown) Lucien Lan (units (unknown) date) MD Yudi [Primary unknown) Care Provider] (unknown) (no (unknown) (unknown) MNA 10 (at risk (units (unknown) date) for malnutrition), unknown) diet recall suggesting inadequate (unknown) (no (unknown) (unknown) FISH TENDER Consult (units (un known) date) needed for:: unknown) [facility] Need (unknown) (no (unknown) (unknown) Medical History (units (unknown) date) (Updated 06/17/22 unknown) @ 00:55 by Hawa Michael [facility]) (unknown) (no (unknown) (unknown) Mother (units [...] (units (unknown) date) Set up HH unknown) RN/PT/OT/BOAT PATCHER PLASTIC for discharge home (unknown) (no (unknown) (unknown) [...] 06/16/22 unknown) @ 21:27 by Hawa Michael [facility]) (unknown) (no (unknown) (unknown) This is [...] (unknown) date) unknown) (unknown) (no (unknown) (unknown) [id number] (units (unkno wn) date) unknown) (unknown) (no [...] unknown) (unknown) (no (unknown) (unknown) Consult to FISH TENDER - (units (unknown) date) Skidder unknown) Routine (unknown) (no (unknown) (unknown) Consult [...] (unknown) (unknown) : 1935 (units (unknown) date) Acct:[id number] unknown) (unknown) (no (unknown) (unknown) Date Patient [...] (Reviewed 06/17/22 unknown) @ 00:47 [facility] (unknown) (no (unknown) (unknown) Father (units (unknown) [...] twice a day (unknown) (no (unknown) (unknown) [facility] (units (unknown) date) [address] unknown) [place] [address] (unknown) (no (unknown) (unknown) Labs (units (unkno wn) date) unknown) (unknown) (no (unknown) (unknown) Lucien Lan (units (unknown) date) MD Yudi [Primary unknown) Care Provider] (unknown) (no (unknown) (unknown) MNA 10 (at risk (units (unknown) date) for malnutrition), unknown) diet recall suggesting inadequate (unknown) (no (unknown) (unknown) FISH TENDER Consult (units (un known) date) needed for:: unknown) [facility] Need (unknown) (no (unknown) (unknown) Medical History (units (unknown) date) (Updated 06/17/22 unknown) @ 00:55 by Hawa Michael [facility]) (unknown) (no (unknown) (unknown) Mother (units [...] (units (unknown) date) Set up HH unknown) RN/PT/OT/BOAT PATCHER [employer] for discharge home (unknown) (no (unknown) (unknown) [...] 06/16/22 unknown) @ 21:27 by Hawa Michael [facility]) (unknown) (no (unknown) (unknown) This is [...] facility 2022-06-16 00:00 Never smoked tobacco (finding) [facility] 2022-06-16 00:00 Smoker (finding) [facility] Vital Signs date measurement value [...]
[2022-07-11 18:25] LABS: ALBUMIN 2.2 g/dL (3.2-5.5); ALBUMIN/GLOBULIN RATIO 0.7 (1.0-2.2); BILIRUBIN,TOTAL 1.9 mg/dL (0.2-1.0); CALCIUM 7.7 mg/dL (8.5-10.3); CREATININE 0.9 mg/dL (0.6-1.2); POTASSIUM 3.4 mmol/L (3.5-5.0); TOTAL PROTEIN 5.2 g/dL (6.7-8.2)
--- NOTE | 2022-07-11 18:26 | XRAY Report ---
PROCEDURE: Chest 1 View X-Ray INDICATIONS: fever TECHNIQUE: One view of the chest was acquired. COMPARISON: 07/07/2022 FINDINGS: Surgical changes and devices: A pacer device can be seen. The leads are seen in the expected posi tions. Lungs and pleura: There is a small left-sided pleural effusion. The lungs otherwise appear clear. Mediastinum: Mediastinal contours appear normal. Heart size is normal. Bones and chest wall: No suspicious bony lesions. Age-appropriate degenerative changes are seen. O verlying soft tissues appear unremarkable. IMPRESSION: Small left-sided pleural effusion. Postoperative and degenerative changes are seen. Reviewed by: Scott Puga MD on 07/11/2022 5:25 PM AKOMEGA Approved by: Scott Puga MD on 07/11/2022 5:25 PM AKOMEGA Station ID: [id number]
[2022-07-11 18:30] LABS: BILIRUBIN,URINE NEGATIVE (NEGATIVE); GLUCOSE, URINE (UA) NEGATIVE (NEGATIVE); KETONES,URINE (UA) NEGATIVE (NEGATIVE); LEUKOCYTE ESTERASE, URINE NEGATIVE (NEGATIVE); NITRITE,URINE NEGATIVE (NEGATIVE); OCCULT BLOOD,URINE NEGATIVE (NEGATIVE); PH,URINE 5.5 PH (5.0-7.5); PROTEIN,URINE TRACE mg/dL (NEGATIVE); UROBILINOGEN,URINE 0.2 (NORMAL) E.U./dL (NORMAL)
[2022-07-11 18:34] LABS: CLARITY,URINE CLEAR (CLEAR)
[2022-07-11] MEDS ORDERED: iohexoL-300 100 ML VIAL IVP ONE (18:52)
[2022-07-11 18:55] LABS: B. PARAPERTUSSIS- RESP PCR PAN NOT DETECTED; B. PERTUSSIS- RESP PCR PANEL NOT DETECTED; C. PNEUMONIAE- RESP PCR PANEL NOT DETECTED; CORONAVIRUS 229E-RESP PCR NOT DETECTED; CORONAVIRUS HKU1-RESP PCR NOT DETECTED; CORONAVIRUS NL63-RESP PCR NOT DETECTED; CORONAVIRUS OC43-RESP PCR NOT DETECTED; HUMAN METAPNEUMOVIRUS NOT DETECTED; INFLUENZA A- RESP PCR PANEL NOT DETECTED; INFLUENZA B - RESP PCR PANEL NOT DETECTED; M. PNEUMONIAE- RESP PCR PANEL NOT DETECTED; PARAINFLUENZA VIRUS 1 NOT DETECTED; PARAINFLUENZA VIRUS 2 NOT DETECTED; PARAINFLUENZA VIRUS 3 NOT DETECTED; PARAINFLUENZA VIRUS 4 NOT DETECTED; RHINOVIRUS/ENTEROVIRUS NOT DETECTED; RSV- RESP PCR PANEL NOT DETECTED; SARS-CoV-2 -RESP PCR PANEL NOT DETECTED
--- NOTE | 2022-07-11 19:02 | CT Report ---
PROCEDURE: ABDOMEN/PELVIS W INDICATIONS: fever, e coli bacteremia CONTRAST: 100mL Omni 300 TECHNIQUE: After the administration of intravenous contrast, 5 mm thick sections acquired from the diaphragms to the symphysis. 5 mm thick coronal and sagittal reformats were acquired. For radiation dose reducti on, the following was used: automated exposure control, adjustment of mA and/or kV according to dorothy ent size. COMPARISON: CT abdomen/pelvis 06/13/2022, abdominal ultrasound 07/07/2022 FINDINGS: Image quality: Excellent. ABDOMEN: Lung bases: Small to moderate bilateral pleural effusions with atelectasis of the lung bases, mildly increased in size on the left compared to the exam from 06/13/2022. Heart size is normal. Solid organs: Heterogeneous appearance of the liver with numerous tiny hypoattenuating lesions throu ghout, which appear more prominent when compared to the CT from 06/13/2022. A more confluent area of e gallo is seen in the posterior right hepatic lobe. Gallbladder demonstrates mild diffuse wall thickeni ng. No definite gallstones. Biliary system is non dilated. Pancreas enhances normally. Multiple ti ny hypoattenuating foci are seen throughout the spleen, which appear more prominent when compared to the prior exam. No adrenal nodules. Kidneys demonstrate normal size and enhancement, without hydrone phrosis. Stable simple renal cyst Peritoneum and bowel: Colonic diverticulosis and mild pericolonic edema that could indicate mild dive rticulitis. No definite abscess formation. Small moderate volume of ascites is seen within the pelvis , which is increased in size when compared to the prior exam. No pneumoperitoneum. Nodes and vessels: No retroperitoneal or mesenteric adenopathy by size criteria. Aorta and inferior vena cava are normal in size. Miscellaneous: No ventral hernias. Mild soft tissue anasarca. PELVIS: Genitourinary: Bladder wall thickness is normal. Miscellaneous: No inguinal hernias or adenopathy. Bones: No suspicious bony lesions. No vertebral body compression fractures. IMPRESSION: 1.Colonic diverticulosis with mild pericolonic fat stranding again seen that may represent mild diver ticulitis. No well-formed abscess or pneumoperitoneum. 2.Multiple tiny hypodense foci within the liver and spleen are more confluent area of edema in the po sterior right hepatic lobe. The appearance is nonspecific but could represent multiple small hepatic and splenic abscesses in the setting of bacteremia. No definite drainable collection is seen. 3.Nonspecific gallbladder wall thickening is seen as demonstrated on recent ultrasound, nonspecific a nd possibly related to volume status. 4.Signs of volume overload including small moderate bilateral pleural effusions, moderate ascites, an d diffuse soft tissue anasarca. Reviewed by: Johnathan Linder MD on 07/11/2022 7:00 PM PDT Approved by: Johnathan Linder MD on 07/11/2022 7:00 PM PDT Station ID: [id number]
[2022-07-11] MEDS ORDERED: cefTRIAXone 1 GM VIAL IVP STA (20:13)
[2022-07-12] MEDS ORDERED: GADOBUTROL 10 MMOL/10 ML VIAL ONE (14:50)
[2022-07-12] MEDS ORDERED: cefTRIAXone 1 GM VIAL IVP STA (15:49)
--- NOTE | 2022-07-12 16:55 | ED Physician Documentation ---
ED Addendum - Addendum Addendum: 07/12/22 16:53 Patient did not have any fevers overnight. No rigors. He is feeling well today. His blood culture is negative today. He was given Rocephin last night and another dose of Rocephin today. Dr. Frias came to the emergency department, I reviewed the patient's laboratory findings, imaging and medical history. Does not feel that surgery would be indicated in this patient. He recommends that we try treating for potential chronic cholecystitis with oral antibiotics. He recommends holding off on a cholecystostomy tube unless the antibiotics fail as that would cause the patient to require surgery and with his metastatic disease to his liver, that could prove difficult. May cause more complications than it would help. Therefore we will place the patient on oral Augmentin and Flagyl. Discussed the case with ZEN Otoole, on-call for Dr. Mims. She will ensure that he is followed up in the office within the week. Discussed the case with Dr. Reeder, his oncologist who will follow-up with the patient as well. Abdomen remains soft, nontender nondistended on serial exam here. Tolerating p.o. without difficulty. Also spoke with the patient, the patient's and the patient's son David. The patient's is reluctant to take the patient home, but as his white blood cell count is normal, his blood cultures are negative, he is tolerating oral diet without difficulty and surgery does not feel that this patient needs operative management at this time, there is no indication for admission to the hospital at this time. No evidence of sepsis. His agreed to take him home after I spoke with his oncologist. Departure - Departure Disposition: 01 Home, Self Care Clinical Impression: Acalculous cholecystitis, Bacteremia, Elevated LFTs, Metastatic melanoma Fever Qualifiers: Fever type: unspecified Qualified Code(s): R50.9 - Fever, unspecified Condition: Stable Instructions: ED Gallbladder Infec Poss, ED Fever Unconf Cause Follow-Up: Matt Mims MD [Primary Care Provider] - Arianna Reeder MD [Physician No Access] - Prescriptions: Amox/Clav 875/125 [Augmentin] 1 tab PO Q12H #28 tablet metroNIDAZOLE [Flagyl] 500 mg PO BID #28 tablet Comments: Your prescriptions were sent to [facility] in [place]. Please follow-up with Dr. Mims within the next week, I spoke with his office today. Please call them tomorrow. I also spoke with Dr. Reeder and her office today. Please follow- up with them as well. Please return if he worsens. Take all antibiotics as instructed. You can start the oral antibiotics in the morning. Discharge Date/Time: 07/12/22 18:33
[2022-07-12 18:27] VITALS: BP 140/79
== END 2022-07-12 18:33 | disposition home or self-care (01) ==
LOC: EDUNIT# → ED 17:22
DX: K81.9 Cholecystitis, unspecified (principal); R78.81 Bacteremia; R94.5 Abnormal results of liver function studies; Z20.822 Contact with and (suspected) exposure to COVID-19; Z66 Do not resuscitate
CPT/HCPCS: 36415; 71045; 74177; 80053; 81003; 83605; 83690; 85025; 85610; 85730; 87040; 87633; 96361; 96374; 96376; 99284; Q9967; 81001; 87086

== ENCOUNTER 2022-07-15 12:29 | Outpatient (CLI) | payer MEDICARE, OTHER | END 2022-07-15 23:59 | disposition critical access hospital (66) | LOC: EMS 12:29 | DX: R41.0 Disorientation, unspecified (principal); R53.1 Weakness; R50.9 Fever, unspecified | CPT/HCPCS: A0425; A0427 ==

== ENCOUNTER 2022-07-15 12:45 | Inpatient (IN) | payer MEDICARE, OTHER ==
--- NOTE | 2022-07-15 12:53 | ED Physician Documentation ---
PD HPI FEVER - Stated complaint Stated Complaint: DIZZINESS - History obtained from History obtained from: Patient, EMS - Additional information Additional information: This is an 86-year-old gentleman who presents by ambulance for encephalopathy and rigors. 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 His current issues started last week. He was seen on the of this month for fevers. No source was identified but subsequently grew E. coli out of both blood cultures. He was brought back to the emergency department in the next day and admitted for E. coli bacteremia. His urine culture was subsequently negative. He was on 3 days of IV antibiotics and subsequently discharged on Cipro. He returned basically almost immediately with a fever back to the emergency department. Blood cultures from that date were negative. CT scanning of the abdomen on that visit demonstrated metastatic disease to the liver and consideration was given to a cholecystostomy tube that was felt to be unlikely to difficult with the metastatic disease in his liver. Subsequently he was sent home on amoxicillin and Flagyl. He returns today with encephalopathy and he has rigors. No history is available from the patient on initial evaluation as he is quite altered and only alert and oriented to person. PD PAST MEDICAL HISTORY - Past Medical History Cardiovascular: Hypertension, High cholesterol, Pulmonary [facility] [place] [facility] Atrial fibrillation, Other (pacer last interogated 2021, has 10 yrs left on battery and in afib 99% of time) Respiratory: Asthma Neuro: Dementia Endocrine/Autoimmune: None GI: GERD (w a UMER in 2002), Diverticulitis : Benign prostate hypertrophy (w LUTs, s/p TURP then dilation of stricture then TUR of stricture), Incontinence, Nocturia, Kidney stones, Other (erecctile dysfunction, balanitis) Psych: None Musculoskeletal: Osteoarthritis, Chronic back pain (and neck pain. Does PT in the past for this) Derm: None, Other - Past Surgical History Past Surgical History: Yes General: Appendectomy, Colonoscopy, EGD, Other (inguinal hernia repair 2007) Cardiovascular: Pacemaker HEENT: Cataracts Derm: Skin cancer surgery - Present Medications Home Medications: Ambulatory Orders Medication Instructions Recorded Confirmed Apixaban [Eliquis] 2.5 mg PO BID 07/08/22 07/11/22 Gabapentin [Neurontin] 300 mg PO BID 07/08/22 07/11/22 Binimetinib [Mektovi] 45 mg PO BID 07/09/22 07/11/22 Encorafenib [Braftovi] 450 mg PO DAILY 07/09/22 07/11/22 Ciprofloxacin [Cipro] 500 mg PO BID #48 tab 07/10/22 07/11/22 Amox/Clav 875/125 [Augmentin] 1 tab PO Q12H #28 tablet 07/12/22 metroNIDAZOLE [Flagyl] 500 mg PO BID #28 tablet 07/12/22 - Allergies Allergies/Adverse Reactions: Allergies Allergy/AdvReac Type Severity Reaction Status Date / Time pneumococcal vaccine Allergy Hives Verified 07/15/22 13:04 [From Prevnar 13 (PF)] - Social History Does the pt smoke?: No Smoking Status: Never smoker Does the pt drink ETOH?: Yes Does the pt have substance abuse?: No - Immunizations Immunizations are current?: Yes - POLST Patient has POLST: No POLST Status: DNR (per his who has advanced directives at home) PD ED PE NORMAL - Vitals Vital signs reviewed: Yes - General General: Other (He is clearly having rigors and is confused) - HEENT HEENT: PERRL, EOMI - Neck Neck: Supple, no meningeal sign, No bony TTP - Cardiac Cardiac: Other (Tachycardic but regular without clear murmur) - Respiratory Respiratory: Other (Tachypneic but clear) - Abdomen Abdomen: Other (Mild right upper quadrant tenderness) - Back Back: No CVA TTP, No spinal TTP - Derm Derm: No rash - Extremities Extremities: No edema, No calf tenderness / cord - Neuro Eye Opening: Spontaneous Motor: Obeys Commands Verbal: Confused GCS Score: 14 Results - Vitals Vitals: Vital Signs - 24 hr 07/15/22 07/15/22 07/15/22 12:47 13:07 13:30 Temperature 37.9 C Heart Rate 140 H 135 H 123 H Respiratory 36 H 25 H 34 H Rate Blood Pressure 191/99 H 163/121 H 152/88 H O2 Saturation 100 100 100 07/15/22 14:00 Temperature Heart Rate 120 H Respiratory 32 H Rate Blood Pressure 144/75 H O2 Saturation 100 Oxygen O2 Source Nasal cannula - EKG (time done) 1333 EKG releavant findings:: EKG personally interpreted by author of this note. Relevant findings are: Rate: Rate (enter#) (120) Rhythm: Sinus tachycardia Intervals: Normal NE, RBBB, Other (lafb) QRS: Normal Ischemia: Non specific changes, Other (++artifact d/t rigors) Computer interpretation: Agree with computer - Labs Labs: Laboratory Tests 07/15/22 07/15/22 07/15/22 13:00 13:02 13:02 WBC 8.4 RBC 3.81 L Hgb 11.2 L Hct 36.1 L MCV 94.8 H MCH 29.4 MCHC 31.0 L RDW 16.1 H Plt Count 434 MPV 8.9 Neut # (Auto) 7.5 H Lymph # (Auto) 0.5 L Fallon # (Auto) 0.1 Eos # (Auto) 0.1 Baso # (Auto) 0.1 Absolute Nucleated RBC 0.07 Nucleated RBC % 0.8 Sodium 139 Potassium 3.0 L Chloride 104 Carbon Dioxide 24 Anion Gap 11.0 BUN 14 Creatinine 0.9 Estimated GFR (MDRD) 80 L Glucose 113 H Lactic Acid Calcium 8.3 L Total Bilirubin 1.7 H AST 33 ALT 24 Alkaline Phosphatase 345 H Total Protein 5.6 L Albumin 2.2 L Globulin 3.4 Albumin/Globulin Ratio 0.6 L Urine Color DARK YELLOW Urine Clarity CLEAR Urine pH 5.5 Ur Specific Bally 1.020 Urine Protein NEGATIVE Urine Glucose (UA) NEGATIVE Urine Ketones NEGATIVE Urine Occult Blood NEGATIVE Urine Nitrite POSITIVE H Urine Bilirubin NEGATIVE Urine Urobilinogen 0.2 (NORMAL) Ur Leukocyte Esterase TRACE H Urine RBC None Seen Urine WBC 0-3 Urine WBC Clumps NONE SEEN Ur Squamous Epith Cells RARE Squamous Amorphous Sediment Few Urine Bacteria Rare Urine Casts 0-2 Hyaline Casts Urine Yeast PRESENT Urine Culture Comments INDICATED 07/15/22 13:02 WBC RBC Hgb Hct MCV MCH MCHC RDW Plt Count MPV Neut # (Auto) Lymph # (Auto) Fallon # (Auto) Eos # (Auto) Baso # (Auto) Absolute Nucleated RBC Nucleated RBC % Sodium Potassium Chloride Carbon Dioxide Anion Gap BUN Creatinine Estimated GFR (MDRD) Glucose Lactic Acid 4.0 H* Calcium Total Bilirubin AST ALT Alkaline Phosphatase Total Protein Albumin Globulin Albumin/Globulin Ratio Urine Color Urine Clarity Urine pH Ur Specific Bally Urine Protein Urine Glucose (UA) Urine Ketones Urine Occult Blood Urine Nitrite Urine Bilirubin Urine Urobilinogen Ur Leukocyte Esterase Urine RBC Urine WBC Urine WBC Clumps Ur Squamous Epith Cells Amorphous Sediment Urine Bacteria Urine Casts Urine Yeast Urine Culture Comments - Rads (name of study) Single view chest x-ray without clear acute disease Relevant Findings:: Final report received, EMP independent interpretation of test CT of the abdomen pelvis with IV contrast showing basically no change from prior with ascites and lesions consistent with metastatic melanoma in the l Relevant Findings:: Final report received, EMP independent interpretation of test PD Medical Decision Making - ED course ED course: 86-year-old gentleman with recent E. coli bacteremia and metastatic melanoma presents now more encephalopathic fitting sepsis criteria with positive lactate, tachypneic and tachycardic. CBC, CMP, and urine all otherwise relatively unchanged. He was given cefepime after blood cultures and sepsis fluids. He is very altered here. Given the events of the last week I did set expectations with the that he did seem to be declining despite appropriate treatment. I discussed the case with Dr. Frias given previous concerns for cholecystitis although objective evidence of this is lacking and he does not feel that the patient has cholecystitis, and even if he did, would not be a surgical candidate. Dr. Simon will admit and we spoke at 4 PM. Departure - Departure Disposition: 66 [facility] DC/N[facility]io Clinical Impression: Metastatic melanoma, Sepsis Condition: Serious
[2022-07-15] MEDS ORDERED: SODIUM CHLORIDE 0.9% 1,000 ML IV STA (13:04)
[2022-07-15] MEDS ORDERED: ACETAMINOPHEN 1,000 MG/100 ML 1,000 MG/100 ML BAG IV ONE (13:04)
[2022-07-15 13:15] LABS: BASOPHILS # (AUTO) 0.1 10^3/uL (0.0-0.1); BASOPHILS % (AUTO) 0.7 %; EOSINOPHILS # (AUTO) 0.1 10^3/uL (0.0-0.7); EOSINOPHILS % (AUTO) 0.6 %; HCT - HEMATOCRIT 36.1 % (42.0-52.0); HGB - HEMOGLOBIN 11.2 g/dL (14.0-18.0); LYMPHOCYTES # (AUTO) 0.5 10^3/uL (1.5-3.5); LYMPHOCYTES % (AUTO) 5.9 %; MEAN CORPUSCULAR HEMOGLOBIN 29.4 pg (27.0-31.0); MEAN CORPUSCULAR VOLUME 94.8 fL (80.0-94.0); MEAN PLATELET VOLUME 8.9 fL (7.4-11.4); MONOCYTES # (AUTO) 0.1 10^3/uL (0.0-1.0); NEUTROPHILS # (AUTO) 7.5 10^3/uL (1.5-6.6); NEUTROPHILS % (AUTO) 89.5 %; NRBC ABSOLUTE COUNT (AUTO) 0.07 x10^3/uL; NUCLEATED RED BLOOD CELLS AUTO 0.8 /100WBC; PLT - PLATELET COUNT 434 10^3/uL (130-450); RED BLOOD COUNT 3.81 10^6/uL (4.70-6.10); RED CELL DISTRIBUTION WIDTH 16.1 % (12.0-15.0); WHITE BLOOD COUNT 8.4 x10^3/uL (4.8-10.8)
[2022-07-15 13:22] LABS: BILIRUBIN,URINE NEGATIVE (NEGATIVE); GLUCOSE, URINE (UA) NEGATIVE (NEGATIVE); KETONES,URINE (UA) NEGATIVE (NEGATIVE); LEUKOCYTE ESTERASE, URINE TRACE (NEGATIVE); NITRITE,URINE POSITIVE (NEGATIVE); OCCULT BLOOD,URINE NEGATIVE (NEGATIVE); PH,URINE 5.5 PH (5.0-7.5); PROTEIN,URINE NEGATIVE (NEGATIVE); UROBILINOGEN,URINE 0.2 (NORMAL) E.U./dL (NORMAL)
[2022-07-15] MEDS ORDERED: iohexoL-300 100 ML VIAL ONE ×2 (13:27→14:39)
[2022-07-15 13:28] LABS: ALBUMIN 2.2 g/dL (3.2-5.5); ALBUMIN/GLOBULIN RATIO 0.6 (1.0-2.2); BILIRUBIN,TOTAL 1.7 mg/dL (0.2-1.0); CALCIUM 8.3 mg/dL (8.5-10.3); CREATININE 0.9 mg/dL (0.6-1.2); TOTAL PROTEIN 5.6 g/dL (6.7-8.2)
[2022-07-15] MEDS ORDERED: CEFEPIME 2 GM in SODIUM CHLORIDE 0.9% MINIBAG 100 ML IV STA (13:37)
[2022-07-15] MEDS ORDERED: LACTATED RINGERS 1,500 ML IV STA (13:37)
[2022-07-15 13:39] LABS: AMORPHOUS SEDIMENT,UR Few /LPF; BACTERIA,URINE Rare /HPF (None Seen); CLARITY,URINE CLEAR (CLEAR); RBC,URINE None Seen /HPF (0-5); SQUAMOUS EPITHELIAL CELL,UR RARE Squamous (<= Few); WBC CLUMPS,URINE NONE SEEN; WBC,URINE 0-3 /HPF (0-3); YEAST,URINE PRESENT
[2022-07-15 13:40] LABS: CASTS, URINE 0-2 Hyaline Casts /LPF
--- OUTSIDE RECORDS SUMMARY | 2022-07-15 13:49 | EXTERNAL MEDICAL SUMMARY RPT | Continuity of Care Document ---
:1935 Author Organization [facility] Address [address] [place] [address] Phone Care Team Providers Name Role Phone Unavailable Unavailable Unavailable Lucien Lan Unavailable Unavailable Allergies and Intolerances date description facility type (no date) pneumococcal 7-valent conjugate to [facility] (unknown) Encounters No information. Functional Status No information. Immunizations No information. Medications date description facility 2022-06-16 00:00 Apixaban [facility] 2022-06-16 00:00 Amlodipine [facility] 2022-06-16 00:00 Gabapentin [facility] Problems date description facility 2022-06-16 00:00 Sepsis [facility] 2022-06-16 00:00 Atrial fibrillation [facility] 2022-06-16 00:00 Urinary tract infection [facility] 2022-06-16 00:00 Confusion [facility] 2022-06-16 00:00 [facility]:00 Body mass index (BMI) of 22.0 to 22.9 i n adult [facility] 2022-06-16 00:00 Presence of cardiac pacemaker 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 contrast 2022-06-21 00:00 Gram Stain [facility] 2022-06-20 00:00 CT soft tissue neck w [facility] denzel 2022-06-16 00:00 X-ray of chest, single view [facility] 2022-06-16 00:00 CT abdomen pelvis w [facility] 2022-06-17 00:00 US Abdomen limited [facility] 2022-06-16 00:[address] [facility] 2022-06-21 00:00 CT biopsy [facility] Results/Labs test date author facility value unit [...] nown) date) unknown) (unknown) (no (unknown) (unknown) [id number] (units (unkno wn) date) unknown) (unknown) (no (unknown) (unknown) 06/16/22 (units (unkno wn) date) unknown) (unknown) (no (unknown) (unknown) [address] (units (unkn own) date) Street unknown) (unknown) (no (unknown) (unknown) Accession (units (unkn own) date) Number: unknown) [id number] (unknown) (no (unknown) (unknown) Age/Sex: 86 / M (units (unknown) date) Date of Service: unknown) (unknown) (no (unknown) (unknown) [place], [place] (units ( unknown) date) [address] unknown) (unknown) (no (unknown) (unknown) Approved by: (units (u nknown) date) Brandyn Davis M.D. unknown) on 06/16/2022 at 13:03 (unknown) (no (unknown) (unknown) Bones and chest (units (unknown) date) wall: No unknown) suspicious bony lesions. Overlying soft tissues (unknown) (no (unknown) (unknown) COMPARISON: (units (un known) date) None. unknown) (unknown) (no (unknown) (unknown) : 1935 (units (unknown) date) Acct:[id number] unknown) (unknown) (no (unknown) (unknown) Dictated by: (units (u nknown) date) Brandyn Davis M.D. unknown) on 06/16/2022 at 13:02 (unknown) (no (unknown) (unknown) FINDINGS: (units (unkn own) date) unknown) (unknown) (no (unknown) (unknown) IMPRESSION: (units (un known) date) Possible mild unknown) right and retrocardiac opacities could represent (unknown) (no (unknown) (unknown) INDICATIONS: (units (u nknown) date) suspected sepsis unknown) (unknown) (no (unknown) (unknown) [facility] (units (unknown) date) unknown) (unknown) (no [...] nown) date) unknown) (unknown) (no (unknown) (unknown) [id number] (units (unkno wn) date) unknown) (unknown) (no (unknown) (unknown) 06/16/22 (units (unkno wn) date) unknown) (unknown) (no (unknown) (unknown) [address] [place] [address] (units (unknown) date) unknown) (unknown) (no (unknown) (unknown) Accession Number: (units (unknown) date) [id number] unknown) (unknown) (no (unknown) (unknown) Age/Sex: 86 / M (units (unknown) date) Date of Service: unknown) (unknown) (no (unknown) (unknown) [place] (units ( unknown) date) [address] unknown) (unknown) (no (unknown) (unknown) Approved by: [...] (unknown) (unknown) : 1935 (units (unknown) date) Acct:[id number] unknown) (unknown) (no (unknown) (unknown) Dictated by: [...] date) Good unknown) (unknown) (no (unknown) (unknown) [facility] (units (unknown) date) unknown) (unknown) (no [...] nown) date) unknown) (unknown) (no (unknown) (unknown) [id number] (units (unkno wn) date) unknown) (unknown) (no (unknown) (unknown) 06/16/22 (units (unkno wn) date) unknown) (unknown) (no (unknown) (unknown) [address] [place] [address] (units (unknown) date) unknown) (unknown) (no (unknown) (unknown) Accession (units (unkn own) date) Number: unknown) [id number] (unknown) (no (unknown) (unknown) After the (units (unkn own) date) administration of unknown) intravenous contrast, 5 mm thick sections acquired (unknown) (no (unknown) (unknown) Age/Sex: 86 / M (units (unknown) date) Date of Service: unknown) (unknown) (no (unknown) (unknown) [place], [place] (units ( unknown) date) [address] unknown) (unknown) (no (unknown) (unknown) Approved by: (units (u nknown) date) Brandyn Davis M.D. unknown) on 06/16/2022 at 14:52 (unknown) (no (unknown) (unknown) Bones: No acute (units (unknown) date) or suspicious unknown) osseous abnormality. (unknown) (no (unknown) (unknown) COMPARISON: (units (un known) date) [facility], unknown) CR, XR CHEST 1V, 06/16/2022, 12:43. (unknown) (no (unknown) (unknown) CT Scan Report (units (unknown) date) unknown) (unknown) (no (unknown) (unknown) Chest wall and (units (unknown) date) thyroid: unknown) Unremarkable (unknown) (no (unknown) (unknown) : 1935 (units (unknown) date) Acct:[id number] unknown) (unknown) (no (unknown) (unknown) Dictated by: [...] date) Good unknown) (unknown) (no (unknown) (unknown) [facility] (units (unknown) date) unknown) (unknown) (no (unknown) (unknown) Loc: ED (units (unkno wn) date) unknown) (unknown) (no (unknown) (unknown) Lungs and (units (unkn own) date) pleura: Bilateral unknown) fdbg-wz-nypmsbbi pleural effusions, slightly (unknown) (no (unknown) (unknown) Mediastinum, (units (u nknown) date) heart, and unknown) esophagus: No hiatal hernia. Left chest wall pulse (unknown) (no (unknown) (unknown) Quff-ak-hvdwdmev (units (unknown) date) , unknown) (unknown) (no [...] nown) date) unknown) (unknown) (no (unknown) (unknown) [id number] (units (unkno wn) date) unknown) (unknown) (no [...] (unknown) (unknown) : 1935 (units (unknown) date) Acct:[id number] unknown) (unknown) (no (unknown) (unknown) Data collected (units (unknown) date) from: Patient and unknown) and patient's food and beverage analyst as well as ER (unknown) (no (unknown) [...] date) Signs: unknown) (unknown) (no (unknown) (unknown) [facility] (units (unknown) date) [address] unknown) [place] [address] (unknown) (no (unknown) (unknown) Lab Data (units [...] (unknown) Lymph # (Auto) (units (unknown) date) (9364-0339) /uL unknown) (unknown) (no (unknown) (unknown) Lymph # (Auto) (units (unknown) date) 400 L (3806-0724) unknown) /uL (unknown) (no (unknown) (unknown) Lymph [...] date) Wheelchair unknown) (unknown) (no (unknown) (unknown) Stearns # (Auto) (units ( unknown) date) (0-900) /uL unknown) (unknown) (no (unknown) (unknown) [place]s # (Auto) (units ( unknown) date) 900 (0-900) /uL unknown) (unknown) (no (unknown) (unknown) [place] % (Auto) (units ( unknown) date) (3-14) % unknown) (unknown) (no (unknown) (unknown) [place] % (Auto) (units ( unknown) date) 9.4 [...] Neut # (Auto) (units ( unknown) date) (2816-9264) /uL unknown) (unknown) (no (unknown) (unknown) Neut # (Auto) (units ( unknown) date) 8[address] H unknown) (0915-4256) /uL (unknown) (no (unknown) (unknown) Neut % [...] (4.5-11.0) unknown) X103/uL (unknown) (no (unknown) (unknown) [facility] (units (unknown) date) ER for evaluation unknown) [...] (units (unk nown) date) 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 (unknown) (no (unknown) (unknown) [...] with (units (unk nown) date) patient's unknown) food and beverage analyst and he was concern for patient's welfare [...] nown) date) unknown) (unknown) (no (unknown) (unknown) [id number] (units (unkno wn) date) unknown) (unknown) (no [...] (unknown) (unknown) : 1935 (units (unknown) date) Acct:[id number] unknown) (unknown) (no (unknown) (unknown) Data collected (units (unknown) date) from: Patient and unknown) and patient's food and beverage analyst as well as ER (unknown) (no (unknown) [...] date) Signs: unknown) (unknown) (no (unknown) (unknown) [facility] (units (unknown) date) [address] unknown) [place] [address] (unknown) (no (unknown) (unknown) Lab Data (units [...] (unknown) Lymph # (Auto) (units (unknown) date) (6233-5753) /uL unknown) (unknown) (no (unknown) (unknown) Lymph # (Auto) (units (unknown) date) 400 L (5551-6758) unknown) /uL (unknown) (no (unknown) (unknown) Lymph [...] date) Wheelchair unknown) (unknown) (no (unknown) (unknown) Stearns # (Auto) (units ( unknown) date) (0-900) /uL unknown) (unknown) (no (unknown) (unknown) Stearns # (Auto) (units ( unknown) date) 900 (0-900) /uL unknown) (unknown) (no (unknown) (unknown) [place]s % (Auto) (units ( unknown) date) (3-14) % unknown) (unknown) (no (unknown) (unknown) [place]s % (Auto) (units ( unknown) date) 9.4 [...] Neut # (Auto) (units ( unknown) date) (3791-8448) /uL unknown) (unknown) (no (unknown) (unknown) Neut # (Auto) (units ( unknown) date) 8200 H unknown) (7778-6190) /uL (unknown) (no (unknown) (unknown) Neut % [...] (4.5-11.0) unknown) X103/uL (unknown) (no (unknown) (unknown) [facility] (units (unknown) date) ER for evaluation unknown) [...] (units (unk nown) date) 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 (unknown) (no (unknown) (unknown) [...] with (units (unk nown) date) patient's unknown) food and beverage analyst and he was concern for patient's welfare [...] nown) date) unknown) (unknown) (no (unknown) (unknown) [id number] (units (unkno wn) date) unknown) (unknown) (no [...] wn) date) unknown) (unknown) (no (unknown) (unknown) [address] [place] [address] (units (unknown) date) unknown) (unknown) (no (unknown) [...] (unknown) (unknown) Accession Number: (units (unknown) date) [id number] ?? unknown) (unknown) (no (unknown) (unknown) Accession Number: (units (unknown) date) [id number] ?? unknown) (unknown) (no (unknown) (unknown) Accession Number: (units (unknown) date) [id number] ?? unknown) (unknown) (no (unknown) (unknown) Acct:[id number] (units (unknown) date) unknown) (unknown) (no (unknown) [...] (unknown) TAYLOR Moreno (units ( unknown) date) [address] unknown) (unknown) (no (unknown) (unknown) Approved by: [...] (unknown) (unknown) COMPARISON:? (units (u nknown) date) [facility], unknown) CR, XR CHEST 1V, 06/16/2022, 12:43. [...] (unknown) (unknown) : 1935 (units (unknown) date) Acct:[id number] unknown) (unknown) (no (unknown) (unknown) : 1935 (units (unknown) date) unknown) (unknown) (no (unknown) (unknown) Data collected (units (unknown) date) from: Patient and unknown) and patient's food and beverage analyst as well as ER (unknown) (no (unknown) [...] date) Signs: unknown) (unknown) (no (unknown) (unknown) [facility] (units (unknown) date) [address] unknown) [place] [address] (unknown) (no (unknown) (unknown) [facility] (units (unknown) date) unknown) (unknown) (no [...] (units (unkn own) date) pleura:? Bilateral unknown) rcyk-ez-dibhddmk pleural effusions, slightly (unknown) (no (unknown) (unknown) Lungs and pleura:? (units (unknown) date) Low lung volumes.? unknown) Possible mild right and retrocardiac basal (unknown) (no (unknown) (unknown) Lymph # (Auto) (units (unknown) date) (5841-2641) /uL unknown) (unknown) (no (unknown) (unknown) Lymph # (Auto) (units (unknown) date) 400 L (8062-1516) unknown) /uL (unknown) (no (unknown) (unknown) Lymph [...] date) unknown) (unknown) (no (unknown) (unknown) MR#: [id number] (units (unknown) date) unknown) (unknown) (no (unknown) [...] unknown) Recorded Confirmed (unknown) (no (unknown) (unknown) Nzeu-uq-vawgeypz, (units (unknown) date) unknown) (unknown) (no (unknown) (unknown) Mode of arrival: (units (unknown) date) Wheelchair unknown) (unknown) (no (unknown) (unknown) Stearns # (Auto) (units ( unknown) date) (0-900) /uL unknown) (unknown) (no (unknown) (unknown) Stearns # (Auto) 900 (units (unknown) date) (0-900) /uL unknown) (unknown) (no (unknown) (unknown) [place] % (Auto) (units ( unknown) date) (3-14) % unknown) (unknown) (no (unknown) (unknown) [place]s % (Auto) 9.4 (units (unknown) date) (3-14) [...] Neut # (Auto) (units ( unknown) date) (7126-1152) /uL unknown) (unknown) (no (unknown) (unknown) Neut # (Auto) (units ( unknown) date) 8200 H (1285-4081) unknown) /uL (unknown) (no (unknown) (unknown) Neut [...] (4.5-11.0) X103/uL unknown) (unknown) (no (unknown) (unknown) [facility] (units (unknown) date) ER for evaluation unknown) [...] hands with strong (units (unknown) date) 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) food and beverage analyst and he was concern for patient's welfare [...] nown) date) unknown) (unknown) (no (unknown) (unknown) [id number] (units (unkno wn) date) unknown) (unknown) (no [...] date) unknown) (unknown) (no (unknown) (unknown) [address] [place] [address] (units (unknown) date) unknown) (unknown) (no (unknown) [...] (unknown) (unknown) Accession Number: (units (unknown) date) [id number] ?? unknown) (unknown) (no (unknown) (unknown) Accession Number: (units (unknown) date) [id number] ?? unknown) (unknown) (no (unknown) (unknown) Accession Number: (units (unknown) date) [id number] ?? unknown) (unknown) (no (unknown) (unknown) Acct:[id number] (units (unknown) date) unknown) (unknown) (no (unknown) [...] Date / Time (unknown) (no (unknown) (unknown) [place], [place] (units ( unknown) date) [address] unknown) (unknown) (no (unknown) (unknown) Approved by: [...] (unknown) (unknown) COMPARISON:? (units (u nknown) date) [facility], unknown) CR, XR CHEST 1V, 06/16/2022, 12:43. [...] (unknown) (unknown) : 1935 (units (unknown) date) Acct:[id number] unknown) (unknown) (no (unknown) (unknown) : 1935 (units (unknown) date) unknown) (unknown) (no (unknown) (unknown) Data collected (units (unknown) date) from: Patient and unknown) and patient's food and beverage analyst as well as ER (unknown) (no (unknown) [...] date) Signs: unknown) (unknown) (no (unknown) (unknown) [facility] (units (unknown) date) [address] unknown) [place] [address] (unknown) (no (unknown) (unknown) [facility] (units (unknown) date) unknown) (unknown) (no [...] (units (unkn own) date) pleura:? Bilateral unknown) wpwp-bg-hsvizzgc pleural effusions, slightly (unknown) (no (unknown) (unknown) Lungs and pleura:? (units (unknown) date) Low lung volumes.? unknown) Possible mild right and retrocardiac basal (unknown) (no (unknown) (unknown) Lymph # (Auto) (units (unknown) date) (8606-9944) /uL unknown) (unknown) (no (unknown) (unknown) Lymph # (Auto) (units (unknown) date) 400 L (6096-2650) unknown) /uL (unknown) (no (unknown) (unknown) Lymph [...] date) unknown) (unknown) (no (unknown) (unknown) MR#: [id number] (units (unknown) date) unknown) (unknown) (no (unknown) [...] unknown) Recorded Confirmed (unknown) (no (unknown) (unknown) Anhk-tv-jzyxpoqf, (units (unknown) date) unknown) (unknown) (no (unknown) (unknown) Mode of arrival: (units (unknown) date) Wheelchair unknown) (unknown) (no (unknown) (unknown) Stearns # (Auto) (units ( unknown) date) (0-900) /uL unknown) (unknown) (no (unknown) (unknown) Ste[place]s # (Auto) 900 (units (unknown) date) (0-900) /uL unknown) (unknown) (no (unknown) (unknown) [place]s % (Auto) (units ( unknown) date) (3-14) % unknown) (unknown) (no (unknown) (unknown) Ste[place]s % (Auto) 9.4 (units (unknown) date) (3-14) [...] Neut # (Auto) (units ( unknown) date) (7825-6969) /uL unknown) (unknown) (no (unknown) (unknown) Neut # (Auto) (units ( unknown) date) 8200 H (1787-2441) unknown) /uL (unknown) (no (unknown) (unknown) Neut [...] (4.5-11.0) X103/uL unknown) (unknown) (no (unknown) (unknown) [facility] (units (unknown) date) ER for evaluation unknown) [...] hands with strong (units (unknown) date) 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) food and beverage analyst and he was concern for patient's welfare [...] (unknown) date) unknown) (unknown) (no (unknown) (unknown) [id number] (units (unkno wn) date) unknown) (unknown) (no [...] (unknown) (unknown) : 1935 (units (unknown) date) Acct:[id number] unknown) (unknown) (no (unknown) (unknown) Date Patient [...] date) (RT-PCR) unknown) (unknown) (no (unknown) (unknown) [facility] (units (unknown) date) [address] unknown) [place] [address] (unknown) (no (unknown) (unknown) Laboratory (units (unk [...] wn) date) unknown) (unknown) (no (unknown) (unknown) Stearns # (Auto) (units ( unknown) date) 900 unknown) (unknown) (no (unknown) (unknown) [place]s # (Auto) (units ( unknown) date) unknown) (unknown) (no (unknown) (unknown) [place] % (Auto) (units ( unknown) date) 9.4 unknown) (unknown) (no (unknown) (unknown) [place]s % (Auto) (units ( unknown) date) unknown) [...] (units (unkn own) date) [place] unknown) SHUTTLER-BC (unknown) (no (unknown) (unknown) Pulse Oximetry (units [...] (unknown) Ur Specific (units (un known) date) Parnell 1.020 unknown) (unknown) (no (unknown) (unknown) Ur Specific (units (un known) date) [place] unknown) (unknown) (no (unknown) (unknown) Ur Squamous [...] nown) date) unknown) (unknown) (no (unknown) (unknown) [id number] (units (unkno wn) date) unknown) (unknown) (no (unknown) (unknown) 06/16/22 (units (unkno wn) date) unknown) (unknown) (no (unknown) (unknown) 1. Multiple (units (un known) date) ill-defined unknown) hypoattenuating mass lesions throughout the liver. The (unknown) (no (unknown) (unknown) [address] (units (unknown) date) unknown) (unknown) (no (unknown) (unknown) 2. Numerous small (units (unknown) date) hypoattenuating unknown) lesions throughout the spleen are also (unknown) (no (unknown) (unknown) ABDOMEN: (units (unkno wn) date) unknown) (unknown) (no (unknown) (unknown) Abdominal Nodes: (units (unknown) date) No retroperitoneal unknown) or mesenteric adenopathy by size criteria. (unknown) (no (unknown) (unknown) Accession Number: (units (unknown) date) [id number] unknown) (unknown) (no (unknown) (unknown) Adrenal Glands: (units (unknown) date) No adrenal unknown) nodules. (unknown) (no (unknown) (unknown) After the (units (unkn own) date) administration of unknown) IV contrast, axial sections were acquired from the (unknown) (no (unknown) (unknown) Age/Sex: 86 / M (units (unknown) date) Date of Service: unknown) (unknown) (no (unknown) (unknown) [place], [place] (units ( unknown) date) [address] unknown) (unknown) (no (unknown) (unknown) Approved by: [...] (unknown) (unknown) : 1935 (units (unknown) date) Acct:[id number] unknown) (unknown) (no (unknown) (unknown) Dictated by: [...] date) Excellent. unknown) (unknown) (no (unknown) (unknown) [facility] (units (unknown) date) unknown) (unknown) (no [...] (unknown) date) unknown) (unknown) (no (unknown) (unknown) [id number] (units (unkno wn) date) unknown) (unknown) (no [...] (unknown) (unknown) : 1935 (units (unknown) date) Acct:[id number] unknown) (unknown) (no (unknown) (unknown) Date Patient [...] date) (RT-PCR) unknown) (unknown) (no (unknown) (unknown) [facility] (units (unknown) date) [address] [place] [address] unknown) [place] [address] (unknown) (no (unknown) (unknown) Laboratory (units (unk [...] wn) date) unknown) (unknown) (no (unknown) (unknown) Stearns # (Auto) (units ( unknown) date) 900 unknown) (unknown) (no (unknown) (unknown) Ste[place]s # (Auto) (units ( unknown) date) unknown) (unknown) (no (unknown) (unknown) Ste[place]s % (Auto) (units ( unknown) date) 9.4 unknown) (unknown) (no (unknown) (unknown) [place]s % (Auto) (units ( unknown) date) unknown) [...] (units (unkn own) date) [place] unknown) SHUTTLER-BC (unknown) (no (unknown) (unknown) Pulse Oximetry (units [...] (unknown) Ur Specific (units (un known) date) [place]arnell 1.020 unknown) (unknown) (no (unknown) (unknown) Ur Specific (units (un known) date) [place]ell unknown) (unknown) (no (unknown) (unknown) Ur Squamous [...] (unknown) date) unknown) (unknown) (no (unknown) (unknown) [id number] (units (unkno wn) date) unknown) (unknown) (no [...] (unknown) (unknown) : 1935 (units (unknown) date) Acct:[id number] unknown) (unknown) (no (unknown) (unknown) Date Patient [...] date) (RT-PCR) unknown) (unknown) (no (unknown) (unknown) [facility] (units (unknown) date) [address] unknown) [place] [address] (unknown) (no (unknown) (unknown) Laboratory (units (unk [...] 06/16/22 unknown) @ 21:27 by Hawa Michael [facility]) (unknown) (no (unknown) (unknown) Medication (units (unk nown) date) Instructions unknown) Recorded Confirmed Type (unknown) (no (unknown) (unknown) Meds (units (unkno wn) date) unknown) (unknown) (no (unknown) (unknown) Stearns # (Auto) (units ( unknown) date) 900 unknown) (unknown) (no (unknown) (unknown) [place]s # (Auto) (units ( unknown) date) unknown) (unknown) (no (unknown) (unknown) [place]s % (Auto) (units ( unknown) date) 9.4 unknown) (unknown) (no (unknown) (unknown) [place]s % (Auto) (units ( unknown) date) unknown) [...] (units (unkn own) date) [place] Michael unknown) SHUTTLER-BC (unknown) (no (unknown) (unknown) Psych: Patient (units [...] 06/16/22 unknown) @ 21:27 by Hawa Michael [facility]) (unknown) (no (unknown) (unknown) Temperature 98.1 [...] (unknown) Ur Specific (units (un known) date) Parnell 1.020 unknown) (unknown) (no (unknown) (unknown) Ur Specific (units (un known) date) [place] unknown) (unknown) (no (unknown) (unknown) Ur Squamous [...] (unknown) (no date) (unknown) (unknown) 1.8 ng/ml 70623 -7 (unknown) (no date) (unknown) (unknown) 1.8 ng/ml (unkn own) (unknown) (no date) (unknown) (unknown) Negative (units (unkn own) unknown) (unknown) (no date) (unknown) (unknown) Negative (units 16934 -1 unknown) (unknown) (no date) (unknown) (unknown) Negative (units 59444 -3 unknown) (unknown) (no date) (unknown) (unknown) [...] (unknown) date) unknown) (unknown) (no (unknown) (unknown) [id number] (units (unkno wn) date) unknown) (unknown) (no [...] (unknown) (unknown) : 1935 (units (unknown) date) Acct:[id number] unknown) (unknown) (no (unknown) (unknown) Date Patient [...] date) (RT-PCR) unknown) (unknown) (no (unknown) (unknown) [facility] (units (unknown) date) [address] unknown) [place] [address] (unknown) (no (unknown) (unknown) Laboratory (units (unk [...] wn) date) unknown) (unknown) (no (unknown) (unknown) Stearns # (Auto) (units ( unknown) date) 900 unknown) (unknown) (no (unknown) (unknown) [place]s # (Auto) (units ( unknown) date) unknown) (unknown) (no (unknown) (unknown) [place]s % (Auto) (units ( unknown) date) 9.4 unknown) (unknown) (no (unknown) (unknown) [place]s % (Auto) (units ( unknown) date) unknown) [...] (units (unkn own) date) Hawa Michael unknown) SHUTTLER-BC (unknown) (no (unknown) (unknown) Psych: Patient (units [...] (unknown) Ur Specific (units (un known) date) Parnell 1.020 unknown) (unknown) (no (unknown) (unknown) Ur Specific (units (un known) date) Parnell unknown) (unknown) (no (unknown) (unknown) Ur Squamous [...] nown) date) unknown) (unknown) (no (unknown) (unknown) [id number] (units (unkno wn) date) unknown) (unknown) (no (unknown) (unknown) 06/17/22 (units (unkno wn) date) unknown) (unknown) (no (unknown) (unknown) [address] [place] [address] (units (unknown) date) unknown) (unknown) (no (unknown) (unknown) Accession Number: (units (unknown) date) [id number] unknown) (unknown) (no (unknown) (unknown) Age/Sex: 86 / M (units (unknown) date) Date of Service: unknown) (unknown) (no (unknown) (unknown) [place], [place] (units ( unknown) date) [address] unknown) (unknown) (no (unknown) (unknown) Approved by: Feliberto (units (unknown) date) Azar Mendoza on unknown) 06/17/2022 at 10:08 (unknown) (no (unknown) (unknown) Biliary ducts: (units (unknown) date) Intrahepatic bile unknown) ducts are non-dilated. Extrahepatic bile (unknown) (no (unknown) (unknown) COMPARISON: (units (un known) date) [facility], unknown) CT, CT ABDOMEN PELVIS W CON, 06/16/2022, 21:22. (unknown) (no (unknown) (unknown) CT 06/16/2019 (units ( unknown) date) unknown) (unknown) (no (unknown) (unknown) : 1935 (units (unknown) date) Acct:[id number] unknown) (unknown) (no (unknown) (unknown) Diffusely (units [...] LIVER unknown) METS (unknown) (no (unknown) (unknown) [facility] (units (unknown) date) unknown) (unknown) (no [...] (unknown) date) unknown) (unknown) (no (unknown) (unknown) [id number] (units (unkno wn) date) unknown) (unknown) (no [...] (unknown) (unknown) : 1935 (units (unknown) date) Acct:[id number] unknown) (unknown) (no (unknown) (unknown) Date Patient [...] date) (RT-PCR) unknown) (unknown) (no (unknown) (unknown) [facility] (units (unknown) date) [address] unknown) [place] [address] (unknown) (no (unknown) (unknown) Laboratory (units (unk [...] wn) date) unknown) (unknown) (no (unknown) (unknown) Stearns # (Auto) (units ( unknown) date) 900 unknown) (unknown) (no (unknown) (unknown) Stearns # (Auto) (units ( unknown) date) unknown) (unknown) (no (unknown) (unknown) Stearns % (Auto) (units ( unknown) date) 9.4 unknown) (unknown) (no (unknown) (unknown) Stearns % (Auto) (units ( unknown) date) unknown) [...] (units (unkn own) date) Hawa Michael unknown) SHUTTLER-BC (unknown) (no (unknown) (unknown) Psych: Patient (units [...] (unknown) Ur Specific (units (un known) date) Parnell 1.020 unknown) (unknown) (no (unknown) (unknown) Ur Specific (units (un known) date) Parnell unknown) (unknown) (no (unknown) (unknown) Ur Squamous [...] (unknown) date) unknown) (unknown) (no (unknown) (unknown) [id number] (units (unkno wn) date) unknown) (unknown) (no [...] (unknown) (unknown) : 1935 (units (unknown) date) Acct:[id number] unknown) (unknown) (no (unknown) (unknown) Date Patient [...] 06/17/22 unknown) @ 00:47 by Hawa Michael [facility]) (unknown) (no (unknown) (unknown) Father (units [...] date) (RT-PCR) unknown) (unknown) (no (unknown) (unknown) [facility] (units (unknown) date) [address] unknown) [place] [address] (unknown) (no (unknown) (unknown) Laboratory (units (unk [...] 06/17/22 unknown) @ 00:55 by Hawa Michael [facility]) (unknown) (no (unknown) (unknown) Medication (units (unk nown) date) Instructions unknown) Recorded Confirmed Type (unknown) (no (unknown) (unknown) Meds (units (unkno wn) date) unknown) (unknown) (no (unknown) (unknown) Stearns # (Auto) 900 (units (unknown) date) unknown) (unknown) (no (unknown) (unknown) Stearns # (Auto) (units ( unknown) date) unknown) (unknown) (no (unknown) (unknown) Stearns % (Auto) 9.4 (units (unknown) date) unknown) (unknown) (no (unknown) (unknown) Stearns % (Auto) (units ( unknown) date) unknown) [...] (units (unkn own) date) Hawa Michael unknown) SHUTTLER-BC (unknown) (no (unknown) (unknown) Psych: Patient (units [...] 06/16/22 unknown) @ 21:27 by Hawa Michael [facility]-) (unknown) (no (unknown) (unknown) Temperature [...] (unknown) Ur Specific (units (un known) date) Parnell 1.020 unknown) (unknown) (no (unknown) (unknown) Ur Specific (units (un known) date) Parnell unknown) (unknown) (no (unknown) (unknown) Ur Squamous [...] unknown) pending, transaminitis (unknown) (no (unknown) (unknown) [id number] (units (unkno wn) date) unknown) (unknown) (no [...] (unknown) (unknown) : 1935 (units (unknown) date) Acct:[id number] unknown) (unknown) (no (unknown) (unknown) Date Patient [...] 06/17/22 unknown) @ 00:47 by Hawa Michael [facility]) (unknown) (no (unknown) (unknown) Father (units [...] date) (RT-PCR) unknown) (unknown) (no (unknown) (unknown) [facility] (units (unknown) date) [address] unknown) [place] [address] (unknown) (no (unknown) (unknown) Laboratory (units (unk [...] wn) date) unknown) (unknown) (no (unknown) (unknown) Stearns # (Auto) 900 (units (unknown) date) unknown) (unknown) (no (unknown) (unknown) Stearns # (Auto) (units ( unknown) date) unknown) (unknown) (no (unknown) (unknown) Stearns % (Auto) 9.4 (units (unknown) date) unknown) (unknown) (no (unknown) (unknown) Stearns % (Auto) (units ( unknown) date) unknown) [...] (units (unkn own) date) Hawa Michael unknown) SHUTTLER-BC (unknown) (no (unknown) (unknown) Psych: Patient (units [...] 06/16/22 unknown) @ 21:27 by Hawa Michael [facility]) (unknown) (no (unknown) (unknown) Temperature 98.1 [...] (unknown) Ur Specific (units (un known) date) Parnell 1.020 unknown) (unknown) (no (unknown) (unknown) Ur Specific (units (un known) date) Parnell unknown) (unknown) (no (unknown) (unknown) Ur Squamous [...] unknown) pending, transaminitis (unknown) (no (unknown) (unknown) [id number] (units (unkno wn) date) unknown) (unknown) (no [...] (unknown) (unknown) : 1935 (units (unknown) date) Acct:[id number] unknown) (unknown) (no (unknown) (unknown) Date Patient [...] 06/17/22 unknown) @ 00:47 by Hawa Michael SHUTTLERJames) (unknown) (no (unknown) (unknown) Father (units (unknown) [...] date) (RT-PCR) unknown) (unknown) (no (unknown) (unknown) [facility] (units (unknown) date) [address] unknown) [place] [address] (unknown) (no (unknown) (unknown) Laboratory (units (unk [...] 06/17/22 unknown) @ 00:55 by Hawa Michael [facility]) (unknown) (no (unknown) (unknown) Medication (units (unk nown) date) Instructions unknown) Recorded Confirmed Type (unknown) (no (unknown) (unknown) Meds (units (unkno wn) date) unknown) (unknown) (no (unknown) (unknown) Stearns # (Auto) 900 (units (unknown) date) unknown) (unknown) (no (unknown) (unknown) Stearns # (Auto) (units ( unknown) date) unknown) (unknown) (no (unknown) (unknown) Stearns % (Auto) 9.4 (units (unknown) date) unknown) (unknown) (no (unknown) (unknown) Stearns % (Auto) (units ( unknown) date) unknown) [...] (units (unkn own) date) Hawa Michael unknown) SHUTTLER-BC (unknown) (no (unknown) (unknown) Psych: Patient (units [...] (unknown) Ur Specific (units (un known) date) Parnell 1.020 unknown) (unknown) (no (unknown) (unknown) Ur Specific (units (un known) date) Parnell unknown) (unknown) (no (unknown) (unknown) Ur Squamous [...] unknown) pending, transaminitis (unknown) (no (unknown) (unknown) [id number] (units (unkno wn) date) unknown) (unknown) (no [...] (unknown) (unknown) : 1935 (units (unknown) date) Acct:[id number] unknown) (unknown) (no (unknown) (unknown) Date Patient [...] date) (RT-PCR) unknown) (unknown) (no (unknown) (unknown) [facility] (units (unknown) date) [address] [place] [address] unknown) [place] [address] (unknown) (no (unknown) (unknown) Laboratory (units (unk [...] (Updated 06/17/22 unknown) @ 00:55 by [facility] (unknown) (no (unknown) (unknown) Medication (units (unk nown) date) Instructions unknown) Recorded Confirmed Type (unknown) (no (unknown) (unknown) Meds (units (unkno wn) date) unknown) (unknown) (no (unknown) (unknown) Stearns # (Auto) 900 (units (unknown) date) unknown) (unknown) (no (unknown) (unknown) Stearns # (Auto) (units ( unknown) date) unknown) (unknown) (no (unknown) (unknown) Stearns % (Auto) 9.4 (units (unknown) date) unknown) (unknown) (no (unknown) (unknown) Stearns % (Auto) (units ( unknown) date) unknown) [...] (units (unkn own) date) Hawa Michael unknown) SHUTTLER-BC (unknown) (no (unknown) (unknown) Psych: Patient (units [...] (unknown) Ur Specific (units (un known) date) Parnell 1.020 unknown) (unknown) (no (unknown) (unknown) Ur Specific (units (un known) date) Parnell unknown) (unknown) (no (unknown) (unknown) Ur Squamous [...] unknown) pending, transaminitis (unknown) (no (unknown) (unknown) [id number] (units (unkno wn) date) unknown) (unknown) (no [...] (unknown) (unknown) : 1935 (units (unknown) date) Acct:[id number] unknown) (unknown) (no (unknown) (unknown) Date Patient [...] 06/17/22 unknown) @ 00:47 by Hawa Michael [facility]) (unknown) (no (unknown) (unknown) Father (units [...] date) (RT-PCR) unknown) (unknown) (no (unknown) (unknown) [facility] (units (unknown) date) [address] unknown) [place] [address] (unknown) (no (unknown) (unknown) Laboratory (units (unk [...] wn) date) unknown) (unknown) (no (unknown) (unknown) Stearns # (Auto) 900 (units (unknown) date) unknown) (unknown) (no (unknown) (unknown) Stearns # (Auto) (units ( unknown) date) unknown) (unknown) (no (unknown) (unknown) Stearns % (Auto) 9.4 (units (unknown) date) unknown) (unknown) (no (unknown) (unknown) Stearns % (Auto) (units ( unknown) date) unknown) [...] (units (unkn own) date) Hawa Michael unknown) SHUTTLER-BC (unknown) (no (unknown) (unknown) Psych: Patient (units [...] 06/16/22 unknown) @ 21:27 by Hawa Michael [facility]) (unknown) (no (unknown) (unknown) Temperature 98.1 [...] (unknown) Ur Specific (units (un known) date) Parnell 1.020 unknown) (unknown) (no (unknown) (unknown) Ur Specific (units (un known) date) Parnell unknown) (unknown) (no (unknown) (unknown) Ur Squamous [...] 3+, leuks, RBC (unknown) (no (unknown) (unknown) [id number] (units (unkno wn) date) unknown) (unknown) (no [...] (unknown) (unknown) : 1935 (units (unknown) date) Acct:[id number] unknown) (unknown) (no (unknown) (unknown) Date Patient [...] 06/17/22 unknown) @ 00:47 by Hawa Michael [facility]) (unknown) (no (unknown) (unknown) Father (units [...] date) (RT-PCR) unknown) (unknown) (no (unknown) (unknown) [facility] (units (unknown) date) [address] unknown) [place] [address] (unknown) (no (unknown) (unknown) Laboratory (units (unk [...] wn) date) unknown) (unknown) (no (unknown) (unknown) Stearns # (Auto) 900 (units (unknown) date) unknown) (unknown) (no (unknown) (unknown) Stearns # (Auto) (units ( unknown) date) unknown) (unknown) (no (unknown) (unknown) Stearns % (Auto) 9.4 (units (unknown) date) unknown) (unknown) (no (unknown) (unknown) Stearns % (Auto) (units ( unknown) date) unknown) [...] (units (unkn own) date) Hawa Michael unknown) SHUTTLER-BC (unknown) (no (unknown) (unknown) Psych: Patient (units [...] 06/16/22 unknown) @ 21:27 by Hawa Michael [facility]) (unknown) (no (unknown) (unknown) Temperature 98.1 [...] (unknown) Ur Specific (units (un known) date) Parnell 1.020 unknown) (unknown) (no (unknown) (unknown) Ur Specific (units (un known) date) Parnell unknown) (unknown) (no (unknown) (unknown) Ur Squamous [...] 3+, leuks, RBC (unknown) (no (unknown) (unknown) [id number] (units (unkno wn) date) unknown) (unknown) (no [...] (unknown) (unknown) : 1935 (units (unknown) date) Acct:[id number] unknown) (unknown) (no (unknown) (unknown) Date Patient [...] date) (RT-PCR) unknown) (unknown) (no (unknown) (unknown) [facility] (units (unknown) date) [address] unknown) [place] [address] (unknown) (no (unknown) (unknown) Laboratory (units (unk [...] wn) date) unknown) (unknown) (no (unknown) (unknown) Stearns # (Auto) 900 (units (unknown) date) unknown) (unknown) (no (unknown) (unknown) Stearns # (Auto) (units ( unknown) date) unknown) (unknown) (no (unknown) (unknown) Stearns % (Auto) 9.4 (units (unknown) date) unknown) (unknown) (no (unknown) (unknown) Stearns % (Auto) (units ( unknown) date) unknown) [...] (unknown) Provider: (units (unkn own) date) Hawa Michale unknown) SHUTTLER-BC (unknown) (no (unknown) (unknown) Psych: Patient (units [...] 06/16/22 unknown) @ 21:27 by Hawa Michael [facility]) (unknown) (no (unknown) (unknown) Temperature 98.1 [...] (unknown) Ur Specific (units (un known) date) Parnell 1.020 unknown) (unknown) (no (unknown) (unknown) Ur Specific (units (un known) date) Parnell unknown) (unknown) (no (unknown) (unknown) Ur Squamous [...] 3+, leuks, RBC (unknown) (no (unknown) (unknown) [id number] (units (unkno wn) date) unknown) (unknown) (no [...] (unknown) (unknown) : 1935 (units (unknown) date) Acct:[id number] unknown) (unknown) (no (unknown) (unknown) DVT/VTE (units [...] 06/17/22 unknown) @ 00:47 by Hawa Michael [facility]) (unknown) (no (unknown) (unknown) Father (units [...] date) (RT-PCR) unknown) (unknown) (no (unknown) (unknown) [facility] (units (unknown) date) [address] unknown) [place] [address] (unknown) (no (unknown) (unknown) Laboratory (units (unk [...] 06/17/22 unknown) @ 00:55 by Hawa Michael [facility]) (unknown) (no (unknown) (unknown) Medication (units (unk nown) date) Instructions unknown) Recorded Confirmed Type (unknown) (no (unknown) (unknown) Meds (units (unkno wn) date) unknown) (unknown) (no (unknown) (unknown) Stearns # (Auto) 900 (units (unknown) date) unknown) (unknown) (no (unknown) (unknown) Stearns # (Auto) (units ( unknown) date) unknown) (unknown) (no (unknown) (unknown) Stearns % (Auto) 9.4 (units (unknown) date) unknown) (unknown) (no (unknown) (unknown) Stearns % (Auto) (units ( unknown) date) unknown) [...] (units (unkn own) date) Hawa Michael unknown) SHUTTLER-BC (unknown) (no (unknown) (unknown) Psych: Patient (units [...] (unknown) Ur Specific (units (un known) date) Parnell 1.020 unknown) (unknown) (no (unknown) (unknown) Ur Specific (units (un known) date) Parnell unknown) (unknown) (no (unknown) (unknown) Ur Squamous [...] (unknown) -consult for (units (u nknown) date) 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: Concerned patient is not safe [...] 3+, leuks, RBC (unknown) (no (unknown) (unknown) [id number] (units (unkno wn) date) unknown) (unknown) (no [...] (unknown) (unknown) : 1935 (units (unknown) date) Acct:[id number] unknown) (unknown) (no (unknown) (unknown) DVT/VTE (units [...] 06/17/22 unknown) @ 00:47 by Hawa Michael [facility]) (unknown) (no (unknown) (unknown) Father (units [...] date) (RT-PCR) unknown) (unknown) (no (unknown) (unknown) [facility] (units (unknown) date) [address] unknown) [place] [address] (unknown) (no (unknown) (unknown) Laboratory (units (unk [...] (Updated 06/17/22 unknown) @ 00:55 by [facility]) (unknown) (no (unknown) (unknown) Medication (units (unk nown) date) Instructions unknown) Recorded Confirmed Type (unknown) (no (unknown) (unknown) Meds (units (unkno wn) date) unknown) (unknown) (no (unknown) (unknown) Stearns # (Auto) 900 (units (unknown) date) unknown) (unknown) (no (unknown) (unknown) Stearns # (Auto) (units ( unknown) date) unknown) (unknown) (no (unknown) (unknown) Stearns % (Auto) 9.4 (units (unknown) date) unknown) (unknown) (no (unknown) (unknown) Stearns % (Auto) (units ( unknown) date) unknown) [...] (units (unkn own) date) Hawa Michael unknown) SHUTTLER-BC (unknown) (no (unknown) (unknown) Psych: Patient (units [...] wn) date) By:<Electronically unknown) signed by Hawa [facility] Alec> (unknown) (no (unknown) (unknown) Skin: [...] 06/16/22 unknown) @ 21:27 by Hawa Michael [facility]) (unknown) (no (unknown) (unknown) Surrogate (units [...] (unknown) Ur Specific (units (un known) date) Parnell 1.020 unknown) (unknown) (no (unknown) (unknown) Ur Specific (units (un known) date) Parnell unknown) (unknown) (no (unknown) (unknown) Ur Squamous [...] consult (units (unknown) date) evaluations by unknown) 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: Concerned patient is not safe [...] 3+, leuks, RBC (unknown) (no (unknown) (unknown) [id number] (units (unkno wn) date) unknown) (unknown) (no [...] (unknown) (unknown) : 1935 (units (unknown) date) Acct:[id number] unknown) (unknown) (no (unknown) (unknown) DVT/VTE (units [...] 06/17/22 unknown) @ 00:47 by Hawa Michael [facility]) (unknown) (no (unknown) (unknown) Father (units [...] date) (RT-PCR) unknown) (unknown) (no (unknown) (unknown) [facility] (units (unknown) date) [address] unknown) [place] [address] (unknown) (no (unknown) (unknown) Laboratory (units (unk [...] 06/17/22 unknown) @ 00:55 by Hawa Michael [facility]) (unknown) (no (unknown) (unknown) Medication (units (unk nown) date) Instructions unknown) Recorded Confirmed Type (unknown) (no (unknown) (unknown) Meds (units (unkno wn) date) unknown) (unknown) (no (unknown) (unknown) Stearns # (Auto) 900 (units (unknown) date) unknown) (unknown) (no (unknown) (unknown) Stearns # (Auto) (units ( unknown) date) unknown) (unknown) (no (unknown) (unknown) Stearns % (Auto) 9.4 (units (unknown) date) unknown) (unknown) (no (unknown) (unknown) Stearns % (Auto) (units ( unknown) date) unknown) [...] (units (unkn own) date) Hawa Michael unknown) SHUTTLER-BC (unknown) (no (unknown) (unknown) Psych: Patient (units [...] wn) date) By:<Electronically unknown) signed by [facility]> (unknown) (no (unknown) (unknown) Skin: [...] (unknown) Ur Specific (units (un known) date) Parnell 1.020 unknown) (unknown) (no (unknown) (unknown) Ur Specific (units (un known) date) Parnell unknown) (unknown) (no (unknown) (unknown) Ur Squamous [...] consult (units (unknown) date) evaluations by unknown) 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 (unknown) (no (unknown) (unknown) wheezes, rhonchi, (units [...] (unknown) date) unknown) (unknown) (no (unknown) (unknown) [id number] (units (unkno wn) date) unknown) (unknown) (no [...] date) Phosphatase unknown) (unknown) (no (unknown) (unknown) [place] given (units (unknown) date) there history of [...] (unknown) (unknown) : 1935 (units (unknown) date) Acct:[id number] unknown) (unknown) (no (unknown) (unknown) Date of Service: (units (unknown) date) 06/16/22 unknown) (unknown) (no (unknown) (unknown) Deep Vein (units (unkn own) date) Thrombosis/Pulmona unknown) ry Embolism Present on Admission: No (unknown) (no (unknown) (unknown) Diagnosed at (units (u nknown) date) [facility] unknown) [facility]. Urine culture (unknown) (no [...] 06/17/22 unknown) @ 00:47 by Hawa Michael [facility]) (unknown) (no (unknown) (unknown) Father (units [...] (unknown) date) Dr. Weathers at the unknown) [facility]. He did not (unknown) (no (unknown) (unknown) [...] (unknown) date) unknown) (unknown) (no (unknown) (unknown) [facility] (units (unknown) date) [address] unknown) [place] [address] (unknown) (no (unknown) (unknown) Laboratory (units (unk [...] by CASEY Crystal) (unknown) (no (unknown) (unknown) Stearns # (Auto) (units ( unknown) date) [address] unknown) (unknown) (no (unknown) (unknown) Stearns # (Auto) (units ( unknown) date) unknown) (unknown) (no (unknown) (unknown) Stearns % (Auto) (units ( unknown) date) 13.3 unknown) (unknown) (no (unknown) (unknown) Stearns % (Auto) (units ( unknown) date) unknown) [...] 06/16/22 unknown) @ 21:27 by Hawa Michael [facility]) (unknown) (no (unknown) (unknown) Suspect this (units (u nknown) date) reflected SIRS unknown) rather than sepsis. However, he does have evidence (unknown) (no (unknown) (unknown) Temperature 96.3 (units (unknown) date) F L unknown) (unknown) (no (unknown) (unknown) They did they (units ( unknown) date) might prefer to unknown) proceed with care at the [facility] (unknown) (no (unknown) (unknown) Time Spent [...] (unknown) Ur Specific (units (un known) date) Parnell 1.020 unknown) (unknown) (no (unknown) (unknown) Ur Specific (units (un known) date) Parnell unknown) (unknown) (no (unknown) (unknown) Ur Squamous [...] ( unknown) date) inflammatory unknown) pulmonary opacities. Alvf-ii-zhzuawza (unknown) (no (unknown) (unknown) is status post [...] and follows with (unknown) (no (unknown) (unknown) buxww-tavgcjf-pxu (units (unknown) date) n-left pleural unknown) effusions. [...] but no (unknown) (no (unknown) (unknown) the options advisor (units (unknown) date) regularly. unknown) (unknown) (no [...] (unknown) date) unknown) (unknown) (no (unknown) (unknown) [id number] (units (unkno wn) date) unknown) (unknown) (no [...] (unknown) (unknown) : 1935 (units (unknown) date) Acct:[id number] unknown) (unknown) (no (unknown) (unknown) Date of [...] 06/17/22 unknown) @ 00:47 by Hawa Michael [facility]) (unknown) (no (unknown) (unknown) Father (units [...] (unknown) date) Dr. Weathers at the unknown) [facility].? He did not (unknown) (no (unknown) (unknown) [...] (unknown) date) unknown) (unknown) (no (unknown) (unknown) [facility] (units (unknown) date) [address] [place] [address] unknown) [place] [address] (unknown) (no (unknown) (unknown) Laboratory (units (unk [...] 06/17/22 unknown) @ 00:55 by Hawa Michael [facility]) (unknown) (no (unknown) (unknown) Stearns # (Auto) (units ( unknown) date) [address] unknown) (unknown) (no (unknown) (unknown) Stearns # (Auto) (units ( unknown) date) unknown) (unknown) (no (unknown) (unknown) Stearns % (Auto) (units ( unknown) date) 15.8 H unknown) (unknown) (no (unknown) (unknown) Stearns % (Auto) (units ( unknown) date) unknown) [...] 06/16/22 unknown) @ 21:27 by Hawa Michael [facility]) (unknown) (no (unknown) (unknown) Temperature 96.8 [...] (units (unknown) date) serial f/u w/a unknown) options advisor at [facility] (unknown) (no (unknown) (unknown) alcohol intake: (units [...] ( unknown) date) inflammatory unknown) pulmonary opacities.? Zfvl-nj-gtzcbkpy (unknown) (no (unknown) (unknown) liver and spleen [...] and follows with (unknown) (no (unknown) (unknown) pnaqg-evhecpu-dxk (units (unknown) date) n-left pleural unknown) effusions.? There is additional note of the (unknown) (no (unknown) (unknown) scalp (units (unkno wn) date) approximately 2 unknown) years ago.? He describes having had a 7 an inch incision.? (unknown) (no (unknown) (unknown) the options advisor (units (unknown) date) regularly. 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 (units (u nknown) date) unknown) (unknown) [...] (unknown) (unknown) : 1935 (units (unknown) date) Acct:[id number] unknown) (unknown) (no (unknown) (unknown) Date of Service: (units (unknown) date) 06/16/22 unknown) (unknown) (no (unknown) (unknown) Deep Vein (units (unkn own) date) Thrombosis/Pulmona unknown) ry Embolism Present on Admission: No (unknown) (no (unknown) (unknown) Diagn[facility]u nknown) [facility] U[facility] (unknown) (no [...] (unknown) date) unknown) (unknown) (no (unknown) (unknown) [facility] (units (unknown) date) [address] unknown) [place] [address] (unknown) (no (unknown) (unknown) Laboratory (units (unk [...] 06/17/22 unknown) @ 00:55 by Hawa Michael [facility]) (unknown) (no (unknown) (unknown) Stearns # (Auto) (units ( unknown) date) 1100 H unknown) (unknown) (no (unknown) (unknown) Stearns # (Auto) (units ( unknown) date) unknown) (unknown) (no (unknown) (unknown) Stearns % (Auto) (units ( unknown) date) 15.8 H unknown) (unknown) (no (unknown) (unknown) Stearns % (Auto) (units ( unknown) date) unknown) [...] 06/16/22 unknown) @ 21:27 by Hawa Michael [facility]) (unknown) (no (unknown) (unknown) Suspect this [...] (units (unknown) date) serial f/u w/a unknown) options advisor (Dr. Reeder) at [facility] (unknown) (no (unknown) (unknown) ago.? He now [...] ( unknown) date) inflammatory unknown) pulmonary opacities.? [id number] (unknown) (no (unknown) (unknown) intervention or (units [...] biopsy and potential (unknown) (no (unknown) (unknown) wsjoh-[id number]-mve (units (unknown) date) n-left pleural unknown) effusions.? 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 (units (u nknown) date) unknown) (unknown) [...] (unknown) (unknown) : 1935 (units (unknown) date) Acct:[id number] unknown) (unknown) (no (unknown) (unknown) Date of Service: (units (unknown) date) 06/16/22 unknown) (unknown) (no (unknown) (unknown) Deep Vein (units (unkn own) date) Thrombosis/Pulmona unknown) ry Embolism Present on Admission: No (unknown) (no (unknown) (unknown) Diagnosed [facility] (units (u nknown) date[facility] Urine culture (unknown) (no [...] 06/17/22 unknown) @ 00:47 by Hawa Michael [facility]) (unknown) (no (unknown) (unknown) Father (units [...] this patient's care (unknown) (no (unknown) (unknown) [facility] (units (unknown) date) [address] unknown) [place] [address] (unknown) (no (unknown) (unknown) Laboratory (units (unk [...] by JOSE Crystal) (unknown) (no (unknown) (unknown) Stearns # (Auto) (units ( unknown) date) 1000 H unknown) (unknown) (no (unknown) (unknown) Stearns # (Auto) (units ( unknown) date) unknown) (unknown) (no (unknown) (unknown) Stearns % (Auto) (units ( unknown) date) 15.4 H unknown) (unknown) (no (unknown) (unknown) Stearns % (Auto) (units ( unknown) date) unknown) [...] 06/16/22 unknown) @ 21:27 by Hawa Michael [facility]-) (unknown) (no (unknown) (unknown) Suspect [...] nown) date) unknown) (unknown) (no (unknown) (unknown) [id number] (units (unkno wn) date) unknown) (unknown) (no (unknown) (unknown) 06/21/22 (units (unkno wn) date) unknown) (unknown) (no (unknown) (unknown) [address] [place] [address] (units (unknown) date) unknown) (unknown) (no (unknown) (unknown) Accession (units (unkn own) date) Number: unknown) [id number] (unknown) (no (unknown) (unknown) Age/Sex: 86 / M (units (unknown) date) Date of Service: unknown) (unknown) (no (unknown) (unknown) [place] (units ( unknown) date) [id number] unknown) (unknown) (no (unknown) (unknown) Approved by: (units (u nknown) date) Johnathan Lane unknown) Azar on 06/21/2022 at 15:07 (unknown) (no (unknown) (unknown) Biopsy site: (units (u nknown) date) Posterior right unknown) lobe of the liver (unknown) (no (unknown) (unknown) COMPARISON: (units (un known) date) [facility], unknown) CT, CT ABDOMEN PELVIS W CON, 06/16/2022, 21:22. (unknown) (no (unknown) (unknown) CT Scan Report (units (unknown) date) unknown) (unknown) (no (unknown) (unknown) CT guidance, a (units (unknown) date) core biopsy unknown) trocar and needle set was advanced to the biopsy (unknown) (no (unknown) (unknown) Complications: (units (unknown) date) None. unknown) (unknown) (no (unknown) (unknown) : 1935 (units (unknown) date) Acct:[id number] unknown) (unknown) (no (unknown) (unknown) Dictated by: [...] history of melanoma (unknown) (no (unknown) (unknown) [facility] (units (unknown) date) unknown) (unknown) (no [...] brought to the CT unknown) suite and bindery machine tender spiral CT imaging was (unknown) (no (unknown) [...] Dr. Arianna Reeder, (unknown) (no (unknown) (unknown) [id number] (units (unkno wn) date) unknown) (unknown) (no [...] (unknown) (unknown) : 1935 (units (unknown) date) Acct:[id number] unknown) (unknown) (no (unknown) (unknown) Date Patient (units (u nknown) date) Seen: 06/19/22 unknown) (unknown) (no (unknown) (unknown) Date of Service: (units (unknown) date) 06/16/22 unknown) (unknown) (no (unknown) (unknown) Deep Vein (units (unkn own) date) Thrombosis/Pulmona unknown) ry Embolism Present on Admission: No (unknown) (no (unknown) (unknown) Diagnosed at (units (u nknown) date) [facility] Urine culture (unknown) (no [...] 06/17/22 unknown) @ 00:47 by Hawa Michael [facility]) (unknown) (no (unknown) (unknown) Father (units [...] (unknown) date) unknown) (unknown) (no (unknown) (unknown) [facility] (units (unknown) date) [address] unknown) [place] [address] (unknown) (no (unknown) (unknown) Laboratory (units (unk [...] 06/17/22 unknown) @ 00:55 by Hawa Michael [facility]) (unknown) (no (unknown) (unknown) Stearns # (Auto) (units ( unknown) date) 1000 H unknown) (unknown) (no (unknown) (unknown) Stearns # (Auto) (units ( unknown) date) unknown) (unknown) (no (unknown) (unknown) Stearns % (Auto) (units ( unknown) date) 15.4 H unknown) (unknown) (no (unknown) (unknown) Stearns % (Auto) (units ( unknown) date) unknown) [...] 06/16/22 unknown) @ 21:27 by Hawa Michael [facility]) (unknown) (no (unknown) (unknown) Temperature 97.0 [...] unknown) date) unknown) (unknown) (no (unknown) (unknown) [id number] (units (unkno wn) date) unknown) (unknown) (no [...] date) unknown) (unknown) (no (unknown) (unknown) [address] [place] [address] (units (unknown) date) unknown) (unknown) (no (unknown) [...] (unknown) (unknown) Accession Number: (units (unknown) date) [id number] ?? unknown) (unknown) (no (unknown) (unknown) Accession Number: (units (unknown) date) [id number] ?? unknown) (unknown) (no (unknown) (unknown) Accession Number: (units (unknown) date) [id number] ?? unknown) (unknown) (no (unknown) (unknown) Acct:[id number] (units (unknown) date) unknown) (unknown) (no (unknown) [...] PO DAILY DAVID (unknown) (no (unknown) (unknown) [place] (units ( unknown) date) [address] unknown) (unknown) (no (unknown) (unknown) [place] (units [...] (unknown) (unknown) COMPARISON:? (units (u nknown) date) [facility], unknown) CR, XR CHEST 1V, 06/16/2022, 12:43. [...] (unknown) (unknown) : 1935 (units (unknown) date) Acct:[id number] unknown) (unknown) (no (unknown) (unknown) : 1935 (units (unknown) date) unknown) (unknown) (no (unknown) (unknown) Data collected (units (unknown) date) from: Patient and unknown) and patient's food and beverage analyst as well as ER (unknown) (no (unknown) [...] date) Signs: unknown) (unknown) (no (unknown) (unknown) [facility] (units (unknown) date) [address] unknown) [place] [address] (unknown) (no (unknown) (unknown) [facility] (units (unknown) date) unknown) (unknown) (no [...] (units (unkn own) date) pleura:? Bilateral unknown) zbvj-gn-muacnpxy pleural effusions, slightly (unknown) (no (unknown) (unknown) Lungs and pleura:? (units (unknown) date) Low lung volumes.? unknown) Possible mild right and retrocardiac basal (unknown) (no (unknown) (unknown) Lymph # (Auto) (units (unknown) date) (9415-8946) /uL unknown) (unknown) (no (unknown) (unknown) Lymph # (Auto) (units (unknown) date) 400 L (2695-5550) unknown) /uL (unknown) (no (unknown) (unknown) Lymph [...] date) unknown) (unknown) (no (unknown) (unknown) MR#: [id number] (units (unknown) date) unknown) (unknown) (no (unknown) [...] 06/17/22 unknown) @ 00:55 by Hawa Michael [facility]) (unknown) (no (unknown) (unknown) Medical decision (units (unknown) date) making narrative: unknown) (unknown) (no (unknown) (unknown) Medical records (units (unknown) date) reviewed: ER unknown) visits from a few days ago (unknown) (no (unknown) (unknown) Medication (units (unk nown) date) Instructions unknown) Recorded Confirmed (unknown) (no (unknown) (unknown) Hing-vi-vvrluinj, (units (unknown) date) unknown) (unknown) (no (unknown) (unknown) Mode of arrival: (units (unknown) date) Wheelchair unknown) (unknown) (no (unknown) (unknown) Stearns # (Auto) (units ( unknown) date) (0-900) /uL unknown) (unknown) (no (unknown) (unknown) Stearns # (Auto) 900 (units (unknown) date) (0-900) /uL unknown) (unknown) (no (unknown) (unknown) Stearns % (Auto) (units ( unknown) date) (3-14) % unknown) (unknown) (no (unknown) (unknown) Stearns % (Auto) 9.4 (units (unknown) date) (3-14) [...] Neut # (Auto) (units ( unknown) date) (7569-1982) /uL unknown) (unknown) (no (unknown) (unknown) Neut # (Auto) (units ( unknown) date) 8200 H (7486-4352) unknown) /uL (unknown) (no (unknown) (unknown) Neut [...] (4.5-11.0) X103/uL unknown) (unknown) (no (unknown) (unknown) [facility] (units (unknown) date) ER for evaluation unknown) [...] hands with strong (units (unknown) date) 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) food and beverage analyst and he was concern for patient's welfare [...] a follow-up ultrasound-guided (unknown) (no (unknown) (unknown) [id number] (units (unkno wn) date) unknown) (unknown) (no (unknown) (unknown) 06/20/22 (units (unkno wn) date) unknown) (unknown) (no (unknown) (unknown) [address] (units (unknown) date) unknown) (unknown) (no (unknown) (unknown) 1st rib, (units (unkno wn) date) unknown) (unknown) (no (unknown) (unknown) Accession (units (unkn own) date) Number: unknown) [id number] (unknown) (no (unknown) (unknown) Additional (units (unk nown) date) findings: unknown) (unknown) (no (unknown) (unknown) After the (units (unkn own) date) administration of unknown) intravenous contrast, 3.0 mm axial sections (unknown) (no (unknown) (unknown) Age/Sex: 86 / M (units (unknown) date) Date of Service: unknown) (unknown) (no (unknown) (unknown) [place] (units ( unknown) date) [id number] unknown) (unknown) (no (unknown) (unknown) Approved by: [...] (unknown) (unknown) COMPARISON: (units (un known) date) [facility], unknown) CT, CT CHEST W [facility], 06/16/2022, 14:03. [place] (unknown) (no (unknown) (unknown) CT HEAD/BRAIN WO (units (unknown) date) CON, 06/16/2022, unknown) 14:03. (unknown) (no (unknown) (unknown) CT Scan Report (units (unknown) date) unknown) (unknown) (no (unknown) (unknown) : 1935 (units (unknown) date) Acct:[id number] unknown) (unknown) (no (unknown) (unknown) Dictated by: [...] date) Excellent. unknown) (unknown) (no (unknown) (unknown) [facility] (units (unknown) date) unknown) (unknown) (no [...] (unknown) date) unknown) (unknown) (no (unknown) (unknown) [id number] (units (unkno wn) date) unknown) (unknown) (no [...] (unknown) (unknown) : 1935 (units (unknown) date) Acct:[id number] unknown) (unknown) (no (unknown) (unknown) Date Patient [...] (Reviewed 06/17/22 unknown) @ 00:47 [facility] (unknown) (no (unknown) (unknown) Father [...] this patient's care (unknown) (no (unknown) (unknown) [facility] (units (unknown) date) [address] unknown) [place] [address] (unknown) (no (unknown) (unknown) Laboratory (units (unk [...] by JOSE Crystal) (unknown) (no (unknown) (unknown) Stearns # (Auto) (units ( unknown) date) 1000 H unknown) (unknown) (no (unknown) (unknown) Stearns % (Auto) (units ( unknown) date) 14.7 [...] 06/16/22 unknown) @ 21:27 by Hawa Michael [facility]) (unknown) (no (unknown) (unknown) Temperature 97.1 [...] Reeder and updated (unknown) (no (unknown) (unknown) [id number] (units (unkno wn) date) unknown) (unknown) (no [...] (unknown) (unknown) : 1935 (units (unknown) date) Acct:[id number] unknown) (unknown) (no (unknown) (unknown) Date Patient (units (u nknown) date) Seen: 06/20/22 unknown) (unknown) (no (unknown) (unknown) Date of Service: (units (unknown) date) 06/16/22 unknown) (unknown) (no (unknown) (unknown) Deep Vein (units (unkn own) date) Thrombosis/Pulmona unknown) ry Embolism Present on Admission: No (unknown) (no (unknown) (unknown) Diagnosed at (units (u nknown) date) [facility] unknown) [facility] Emergency Department.? Urine culture (unknown) (no [...] 06/17/22 unknown) @ 00:47 by Hawa Michael [facility]) (unknown) (no (unknown) (unknown) Father (units [...] (unknown) date) unknown) (unknown) (no (unknown) (unknown) [facility] (units (unknown) date) [address] unknown) [place] [address] (unknown) (no (unknown) (unknown) Laboratory (units (unk [...] by JOSE Crystal) (unknown) (no (unknown) (unknown) Stearns # (Auto) (units ( unknown) date) 1000 H unknown) (unknown) (no (unknown) (unknown) Stearns % (Auto) (units ( unknown) date) 14.7 [...] 06/16/22 unknown) @ 21:27 by Hawa Michael [facility]) (unknown) (no (unknown) (unknown) Temperature 97.1 [...] over the last few (units (unknown) date) months.?[employer]ili[employer] Supervisor unknown) consulted. (unknown) (no (unknown) (unknown) today; [...] (unknown) (no date) (unknown) (unknown) Comment: (units 36120 -1 unknown) (unknown) (no date) (unknown) (unknown) Comment: (units (unkn own) unknown) Result panel 268 (unknown) (no (unknown) (unknown) (no value) (units (unk nown) date) unknown) (unknown) (no (unknown) (unknown) (past 8 hours): (units (unknown) date) unknown) (unknown) (no (unknown) (unknown) [id number] (units (unkno wn) date) unknown) (unknown) (no [...] (unknown) (unknown) : 1935 (units (unknown) date) Acct:[id number] unknown) (unknown) (no (unknown) (unknown) Date Patient [...] (unknown) date) unknown) (unknown) (no (unknown) (unknown) [facility] (units (unknown) date) [address] unknown) [place] [address] (unknown) (no (unknown) (unknown) Labs (units (unkno [...] Reeder and updated (unknown) (no (unknown) (unknown) [id number] (units (unkno wn) date) unknown) (unknown) (no [...] (unknown) (unknown) : 1935 (units (unknown) date) Acct:[id number] unknown) (unknown) (no (unknown) (unknown) Date Patient (units (u nknown) date) Seen: 06/20/22 unknown) (unknown) (no (unknown) (unknown) Date of Service: (units (unknown) date) 06/16/22 unknown) (unknown) (no (unknown) (unknown) Deep Vein (units (unkn own) date) Thrombosis/Pulmona unknown) ry Embolism Present on Admission: No (unknown) (no (unknown) (unknown) Diagnosed at (units (u nknown) date) [facility] Urine culture (unknown) (no [...] (unknown) date) unknown) (unknown) (no (unknown) (unknown) [facility] (units (unknown) date) [address] unknown) [place] [address] (unknown) (no (unknown) (unknown) Labs (units (unkno [...] 06/16/22 unknown) @ 21:27 by Hawa Michael [facility]-) (unknown) (no (unknown) (unknown) Temperature [...] over the last few (units (unknown) date) months.?[employer] Supervisor unknown) consulted. (unknown) (no (unknown) (unknown) today. [...] in 1 (unknown) (no (unknown) (unknown) [address] [facility] (units (unknown) date) unknown) (unknown) (no (unknown) (unknown) [address] [place] [address] (units (unknown) date) [address], unknown) [place], [place] [id number] (unknown) (no (unknown) (unknown) [id number] (units (unkno wn) date) unknown) (unknown) (no (unknown) (unknown) [place], [place] (units ( unknown) date) [address] unknown) (unknown) (no (unknown) (unknown) As part of (units (unk nown) date) routine quality unknown) assurance, Dr. Tosusaint has reviewed this case (unknown) (no (unknown) [...] description: . unknown) (unknown) (no (unknown) (unknown) [facility] (units (unknown) date) unknown) (unknown) (no (unknown) (unknown) [facility] Accession (units ( unknown) date) Number: unknown) [id number] (unknown) (no (unknown) (unknown) LIVER TISSUE: (units ( unknown) date) unknown) (unknown) (no (unknown) (unknown) [facility] (units (unknown) date) [place] Cytology unknown) (unknown) (no (unknown) (unknown) Liver, Needle (units ( unknown) date) Core Biopsies: unknown) (unknown) (no (unknown) (unknown) MD Donovan Mckenzie (units (unknown) date) Phone: unknown) [phone] (unknown) (no (unknown) (unknown) (units (unknown) date) Dictating Dr: unknown) Tommy Molina MD (unknown) (no (unknown) (unknown) MRV 06/23/2022 (units (unknown) date) 1317 Local unknown) (unknown) (no (unknown) (unknown) Material (units (unkno wn) date) submitted: . unknown) (unknown) (no (unknown) (unknown) Tommy Szymanski (units (unkn own) date) MD Jesse, PhD, unknown) Pathologist (unknown) (no (unknown) (unknown) NPI- [id number] (units (unknown) date) unknown) (unknown) (no (unknown) [...] (unknown) date) unknown) (unknown) (no (unknown) (unknown) [id number] (units (unkno wn) date) unknown) (unknown) (no [...] unknown) (unknown) (no (unknown) (unknown) Consult to COMPARATOR OPERATOR - (units (unknown) date) Coat Check Attendant unknown) Routine (unknown) (no (unknown) (unknown) Consult [...] (unknown) (unknown) : 1935 (units (unknown) date) Acct:[id number] unknown) (unknown) (no (unknown) (unknown) Date Patient [...] 06/17/22 unknown) @ 00:47 by Hawa Michael [facility]) (unknown) (no (unknown) (unknown) Father (units [...] twice a day (unknown) (no (unknown) (unknown) [facility] (units (unknown) date) [address] unknown) [place] [address] (unknown) (no (unknown) (unknown) Labs (units (unkno wn) date) unknown) (unknown) (no (unknown) (unknown) Lucien Lan (units (unknown) date) MD Yudi [Primary unknown) Care Provider] (unknown) (no (unknown) (unknown) COMPARATOR OPERATOR Consult (units (un known) date) needed for:: unknown) [facility] (unknown) (no (unknown) (unknown) Medical History (units (unknown) date) (Updated 06/17/22 unknown) @ 00:55 [facility] (unknown) (no (unknown) (unknown) Mother [...] (units (unknown) date) Set up HH unknown) RN/PT/OT/PRODUCTION SUPPORT MANAGER for discharge home (unknown) (no (unknown) (unknown) [...] 06/16/22 unknown) @ 21:27 by Hawa Michael [facility]) (unknown) (no (unknown) (unknown) Upon admit [...] Reeder and updated (unknown) (no (unknown) (unknown) [id number] (units (unkno wn) date) unknown) (unknown) (no [...] unknown) (unknown) (no (unknown) (unknown) Consult to COMPARATOR OPERATOR - (units (unknown) date) Coat Check Attendant unknown) Routine (unknown) (no (unknown) (unknown) Consult [...] (unknown) (unknown) : 1935 (units (unknown) date) Acct:[id number] unknown) (unknown) (no (unknown) (unknown) Date Patient [...] (unknown) Diagnosed at (units (u nknown) date) [facility] unknown) [facility] Emergency Department.? Urine culture (unknown) (no [...] 06/17/22 unknown) @ 00:47 by Hawa Michael [facility]) (unknown) (no (unknown) (unknown) Father (units [...] are negative to (unknown) (no (unknown) (unknown) [facility] (units (unknown) date) [address] [place] [address] unknown) [place] [address] (unknown) (no (unknown) (unknown) Labs (units (unkno wn) date) unknown) (unknown) (no (unknown) (unknown) Lucien Lan (units (unknown) date) MD Yudi [Primary unknown) Care Provider] (unknown) (no (unknown) (unknown) MNA 10 (at risk (units (unknown) date) for malnutrition), unknown) diet recall suggesting inadequate (unknown) (no (unknown) (unknown) COMPARATOR OPERATOR Consult (units (un known) date) needed for:: [...] (units (unknown) date) Set up HH unknown) RN/PT/OT/PRODUCTION SUPPORT MANAGER for discharge home (unknown) (no (unknown) (unknown) [...] over the last few (units (unknown) date) months.?[employer] Supervisor unknown) consulted. (unknown) (no (unknown) (unknown) pacemaker [...] (unknown) date) unknown) (unknown) (no (unknown) (unknown) [id number] (units (unkno wn) date) unknown) (unknown) (no [...] unknown) (unknown) (no (unknown) (unknown) Consult to COMPARATOR OPERATOR - (units (unknown) date) Coat Check Attendant unknown) Routine (unknown) (no (unknown) (unknown) Consult [...] (unknown) (unknown) : 1935 (units (unknown) date) Acct:[id number] unknown) (unknown) (no (unknown) (unknown) Date Patient [...] (Reviewed 06/17/22 unknown) @ 00:47 [facility] (unknown) (no (unknown) (unknown) Father [...] twice a day (unknown) (no (unknown) (unknown) [facility] (units (unknown) date) [address] unknown) [place] [address] (unknown) (no (unknown) (unknown) Labs (units (unkno wn) date) unknown) (unknown) (no (unknown) (unknown) Lucien Lan (units (unknown) date) MD Yudi [Primary unknown) Care Provider] (unknown) (no (unknown) (unknown) MNA 10 (at risk (units (unknown) date) for malnutrition), unknown) diet recall suggesting inadequate (unknown) (no (unknown) (unknown) COMPARATOR OPERATOR Consult (units (un known) date) needed for:: unknown) [facility] Need (unknown) (no (unknown) (unknown) Medical History (units (unknown) date) (Updated 06/17/22 unknown) @ 00:55 by Hawa Michael [facility]) (unknown) (no (unknown) (unknown) Mother (units [...] (units (unknown) date) Set up HH unknown) RN/PT/OT/PRODUCTION SUPPORT MANAGER for discharge home (unknown) (no (unknown) (unknown) [...] 06/16/22 unknown) @ 21:27 by Hawa Michael [facility]) (unknown) (no (unknown) (unknown) This is [...] (unknown) date) unknown) (unknown) (no (unknown) (unknown) [id number] (units (unkno wn) date) unknown) (unknown) (no [...] unknown) (unknown) (no (unknown) (unknown) Consult to COMPARATOR OPERATOR - (units (unknown) date) Coat Check Attendant unknown) Routine (unknown) (no (unknown) (unknown) Consult [...] (unknown) (unknown) : 1935 (units (unknown) date) Acct:[id number] unknown) (unknown) (no (unknown) (unknown) Date Patient [...] (Reviewed 06/17/22 unknown) @ 00:47 [facility] (unknown) (no (unknown) (unknown) Father [...] twice a day (unknown) (no (unknown) (unknown) [facility] (units (unknown) date) [address] unknown) [place] [address] (unknown) (no (unknown) (unknown) Labs (units (unkno wn) date) unknown) (unknown) (no (unknown) (unknown) Lucien Lan (units (unknown) date) MD Yudi [Primary unknown) Care Provider] (unknown) (no (unknown) (unknown) MNA 10 (at risk (units (unknown) date) for malnutrition), unknown) diet recall suggesting inadequate (unknown) (no (unknown) (unknown) COMPARATOR OPERATOR Consult (units (un known) date) needed for:: unknown) [facility] (unknown) (no (unknown) (unknown) Medical History (units (unknown) date) (Updated 06/17/22 unknown) @ 00:55 by Hawa Michael [facility]) (unknown) (no (unknown) (unknown) Mother (units [...] (units (unknown) date) Set up HH unknown) RN/PT/OT/PRODUCTION SUPPORT MANAGER for discharge home (unknown) (no (unknown) (unknown) [...] 06/16/22 unknown) @ 21:27 by Hawa Michael [facility]) (unknown) (no (unknown) (unknown) This is [...] facility 2022-06-16 00:00 Never smoked tobacco (finding) [facility] 2022-06-16 00:00 Smoker (finding) [facility] Vital Signs date measurement value units 2022-06-16 [...]
--- NOTE | 2022-07-15 14:05 | XRAY Report ---
PROCEDURE: Chest 1 View X-Ray INDICATIONS: Sepsis TECHNIQUE: One view of the chest was acquired. COMPARISON: Chest radiographs 07/11/2022. FINDINGS: Surgical changes and devices: A cardiac pacemaker is seen with pulse generator in the left chest. . Lungs and pleura: Lungs are clear. No obvious pleural effusion or pneumothorax on this supine study. Mediastinum: Mediastinal contours appear normal. Heart size is mildly enlarged. Bones and chest wall: No suspicious bony lesions. Overlying soft tissues appear unremarkable. IMPRESSION: No definite new airspace opacity. Evaluation for pleural effusion is compromised by supine positionin g. Reviewed by: Johnathan Linder MD on 07/15/2022 2:04 PM PDT Approved by: Johnathan Linder MD on 07/15/2022 2:04 PM PDT Station ID: [id number]
--- NOTE | 2022-07-15 15:15 | CT Report ---
PROCEDURE: ABDOMEN/PELVIS W INDICATIONS: recurrent fevers, reeval hepatic lesions CONTRAST: 100ml omni 300 TECHNIQUE: After the administration of IV contrast, 5 mm thick sections acquired from the diaphragms to the symp hysis. 5 mm thick coronal and sagittal reformats were acquired. For radiation dose reduction, the f ollowing was used: automated exposure control, adjustment of mA and/or kV according to patient size. COMPARISON: 07/11/2022, 06/13/2022. Correlation is also made with abdominal ultrasound 07/07/2022. FINDINGS: Image quality: Excellent. ABDOMEN: Lung bases: Moderate bilateral pleural effusions are seen. Heart size is normal. Pacer leads are se en. Solid organs: The liver is abnormal, with multiple poorly defined nodules. Most of these are less th an 1 cm. However, there is a right posterior lobe lesion seen that measures 5.5 cm. Multiple subcentimeter low-density nodules can be seen within the spleen, which are stable from the p rior examination. Gallbladder is largely collapsed at the time of this study, which limits its evaluation. Biliary syst em is non dilated. Pancreas enhances normally. No adrenal nodules. Kidneys demonstrate normal size and enhancement, without hydronephrosis. Simple appearing cysts are seen at the inferior pole of the right kidney. Peritoneum and bowel: Bowel loops demonstrate normal wall thickness and caliber. No free air. Mode rate ascites is seen, which is similar to the prior examination. Diverticulosis can be seen, without laquita findings of active diverticulitis. Nodes and vessels: No retroperitoneal or mesenteric adenopathy by size criteria. Aorta and inferior vena cava are normal in size. Atherosclerotic calcification is seen. Miscellaneous: No ventral hernias. Generalized body wall edema is seen. PELVIS: Genitourinary: Bladder wall thickness is normal. Miscellaneous: No inguinal hernias or adenopathy. Bones: No suspicious bony lesions. No vertebral body compression fractures. Degenerative changes a re seen throughout, particularly involving the lower thoracic spine. IMPRESSION: Moderate bilateral pleural effusions are seen, which are worse on the prior examination. Multiple poorly defined low-density liver nodules and splenic nodules are seen. These are similar to the prior recent examination. These are nonspecific, although please consider multiple small abscesse s and metastatic disease. There is moderate ascites. Generalized body wall edema is seen. Additional findings: Pacer leads Simple right renal cysts Diverticulosis, without findings of active diverticulitis. Reviewed by: Scott Puga MD on 07/15/2022 2:14 PM AKDT Approved by: Scott Puga MD on 07/15/2022 2:14 PM GUILLERMO Station ID: [id number]
[2022-07-15] MEDS ORDERED: iohexoL-300 100 ML VIAL IVP ONE (15:45)
[2022-07-15] MEDS ORDERED: VANCOMYCIN INJ 1.5 GM in SODIUM CHLORIDE 0.9% 500 ML IV STA (16:01)
[2022-07-15 16:43] LABS: LACTIC ACID, VENOUS 2.7 mmol/L (0.5-2.2)
[2022-07-15] MEDS ORDERED: SODIUM CHLORIDE FLUSH 0.9% 10 ML SYRINGE IVP PRN (18:28)
[2022-07-15] MEDS ORDERED: ONDANSETRON 4 MG/2 ML VIAL IVP PRN (18:28)
--- NOTE | 2022-07-15 18:43 | HISTORY & PHYSICAL EXAMINATION ---
Chief Complaint - Chief Complaint Chief Complaint: Confusion, fever History of Present Illness - Admitted From Admitted From:: ED - History Obtained From History obtained from: ED provider, at bedside and record review - History of Present Illness HPI Comment/Other: This is an 86-year-old male who has a history of prostatectomy, subsequent strictures at the base of his bladder and then ended up having a TURP, has had recurrent UTIs, paroxysmal Aib and a pacemaker, Hx of dementia, recently diagnosed with metastatic melanoma, with mets to the liver and pat hologic rib fracture. He started undergoing immunotherapy, has only received it for about 7 days, and takes it orally BID, but that stopped when he developed fevers: On July 07 this month, he presented to the emergency room with fevers. Blood cultures were taken and he was not admitted but was sent home. However 2 out of 2 blood cultures grew E. coli bacteremia and he was called to return and be admitted then. He received IV antibiotics which were then transitioned to oral Cipro at discharge, when the E. coli was pansensitive and after a repeat blood cx was neg. He presented back to the ER, after just 1 day, with confusion and was felt to have an infection again with possibly a gallbladder source. He was ordered to get Amoxicillin and Flagyl and was discharged home from the ER. He has taken those for 3 days. He is now presenting again with somnolence, and rigors. He was brought to the ER and found to have tachycardia, a fever of 100.5 and rigors were seen. He is found to have an elevated lactic acid level of 4, tachypneic with respiratory rate 30, heart rate 105, blood pressure is "soft" and he is only oriented to self. His urinalysis today is again suspicious for a UTI. Blood cultures were sent off and the patient has received IV fluids and started on cefepime IV and vancomycin IV. The LA has improved to 2.7. The ED provider reached out to me on the Hospitalist team and we discussed to have this patient admitted for sepsis, altered mental status, possibly a recurrent UTI. His CODE STATUS is DNR. The ED provider did speak to the informing her that he has had a rapid downward course this month, and his prognosis appears grim. History - Past Medical History Cardiovascular: reports: Hypertension, High cholesterol, Pulmonary embolism (dx when visiting in [place] , hyperecoag bynum neg. 2009), Atrial fibrillation, Other (pacer last interogated 2021, has 10 yrs left on battery and in afib 99% of t maldonado) Respiratory: reports: Asthma Neuro: reports: Dementia Endocrine/Autoimmune: reports: None GI: reports: GERD (w a UMER in 2002), Diverticulitis : reports: Benign prostate hypertrophy (w LUTs, s/p TURP then dilation of stricture then TUR of stricture), Incontinence, Nocturia, Kidney stones, Other (erecctile dysfunction, balanitis) Psych: reports: None Musculoskeletal: reports: Osteoarthritis, Chronic back pain (and neck pain. Does PT in the past for this) Derm: reports: None, Other MRSA Hx?: No - Past Surgical History General: reports: Appendectomy, Colonoscopy, EGD, Other (inguinal hernia repair 2007) Cardiovascular: reports: Pacemaker HEENT: reports: Cataracts Derm: reports: Skin cancer surgery - Family & Social History Family History Comment/Other: unavailable Living Situation: With spouse/s.o. Social History Notes: nonsmoker and o alcohol abuse hx. Lives w . No recreational drug use - Substance History Use: Uses substance without health or social issues: NONE - POLST Patient has POLST: No POLST Status: DNR (per his who has advanced directives at home) Meds/Allgy - Home Medications Home Medications: Ambulatory Orders Medication Instructions Recorded Confirmed Apixaban [Eliquis] 2.5 mg PO BID 07/08/22 07/11/22 Gabapentin [Neurontin] 300 mg PO BID 07/08/22 07/11/22 Binimetinib [Mektovi] 45 mg PO BID 07/09/22 07/11/22 Encorafenib [Braftovi] 450 mg PO DAILY 07/09/22 07/11/22 Ciprofloxacin [Cipro] 500 mg PO BID #48 tab 07/10/22 07/11/22 Amox/Clav 875/125 [Augmentin] 1 tab PO Q12H #28 tablet 07/12/22 metroNIDAZOLE [Flagyl] 500 mg PO BID #28 tablet 07/12/22 - Allergies Allergies/Adverse Reactions: Allergies Allergy/AdvReac Type Severity Reaction Status Date / Time pneumococcal vaccine Allergy Hives Verified 07/15/22 13:04 [From Prevnar 13 (PF)] Exam - Vital Signs Vital Signs: Vital Signs x48h Temp Pulse Resp BP Pulse Ox 07/15/22 18:00 97 20 107/59 L 98 07/15/22 17:30 100 21 100/56 L 99 07/15/22 17:00 103 H 22 100/56 L 97 07/15/22 16:26 37.3 C 105 H 20 107/57 L 96 07/15/22 14:00 120 H 32 H 144/75 H 100 07/15/22 13:30 123 H 34 H 152/88 H 100 07/15/22 13:07 135 H 25 H 163/121 H 100 07/15/22 12:47 37.9 C 140 H 36 H 191/99 H 100 - Physical Exam General Appearance: positive: No acute distress, Lethargic, Other (Skin is balderas) Eyes Bilateral: positive: Normal inspection ENT: positive: Dry mucous membranes, Other (YANKTON) Neck: positive: Nml inspection, No JVD Respiratory: positive: No respiratory distress, Breath sounds nml Cardiovascular: positive: Regular rate & rhythm, Systolic murmur Abdomen: positive: Non-tender, Nml bowel sounds, No distention Skin: positive: Warm, Dry, Other (Balderas discoloration of head and neck) Extremities: positive: Non-tender, No pedal edema Neurologic/Psychiatric: positive: Oriented x3, Motor nml, Other (Lethargic. YANKTON) Sepsis Event Note (H) - Evaluation Current Stage of Sepsis: Sepsis Possible source of Sepsis: positive: Genitourinary - Sepsis Criteria Sepsis Criteria: Recorded Heart Rate greater than 90 bpm, Recorded Respiratory Rate greater than 20, JOURNEYMAN MILLWRIGHT: altered consciousness (unrelated to primary neuro pathology), Metabolic: lactate > 2 mmol/L Conclusion/Plan - Problem List (1) Sepsis Conclusion/Plan: He has criteria for sepsis including tachycardia, elevated white count, fever, tachypnea, altered mental status and abnormal urinalysis Plan: We will treat with IV fluids to continue because of persistent confusion however the lactic acid has already improved We will continue with empiric IV antibiotics using IV cefepime and IV Vanco Await all his culture results to tailor antibx (2) AMS (altered mental status) Conclusion/Plan: He has presented several times this way when he has an infection Plan: Because this is his third or fourth presentation within 2 weeks with confusion, we will admit him to the ICU We will give supportive care, treat his fever and dehydration and infection (3) UTI (urinary tract infection) Conclusion/Plan: He has an abnormal urinalysis, culture is indicated. He has a history of recurrent UTIs with abnormal bladder and prostate anatomy Plan: We will continue with empiric IV cefepime and IV Vanco We will order straight cath and consider Brice if there is evidence of urinary obstruction (4) Metastatic melanoma Conclusion/Plan: As per history. Plan: It appears that his immunotherapy has been on hold since the first fever earlier this month (5) Pacemaker Conclusion/Plan: As per history. Plan: Because he has a history of A-fib and is currently tachycardic, will order telemetry We will consider obtaining an echocardiogram to evaluate for possible subacute infection on his pacer leads (6) Hypokalemia Conclusion/Plan: Possibly from poor intake during his AMS Plan: We will give IV K riders Follow BMP daily - Lab Results Fish Bones: 07/15/22 13:02 07/15/22 13:02 - Diagnostic Imaging Results Diagnostic Imaging Results: positive: Final report reviewed - Other Other Results/Comments: Attestation: The patient is expected to be discharged or transferred to another facility within 96 hours: Yes.
[2022-07-15 18:51] LABS: PT - PROTHROMBIN TIME 21.4 secs (9.9-12.6)
[2022-07-15] MEDS: DEXTROSE 5%-0.9% NACL 1,000 ML IV SCH (19:32)
[2022-07-15] MEDS: POTASSIUM CHLOR 10 MEQ/100 ML 10 MEQ/100 ML BAG IV SCH ×2 (19:38→20:45)
[2022-07-15] MEDS: SODIUM CHLORIDE FLUSH 0.9% 10 ML SYRINGE IVP SCH (19:43)
[2022-07-15 23:14] LABS: LACTIC ACID, VENOUS 2.1 mmol/L (0.5-2.2)
[2022-07-16] MEDS: SODIUM CHLORIDE FLUSH 0.9% 10 ML SYRINGE IVP SCH ×4 (01:15→23:57)
[2022-07-16] MEDS: CEFEPIME 2 GM in SODIUM CHLORIDE 0.9% MINIBAG 100 ML IV SCH ×2 (03:55→16:35)
[2022-07-16 05:00] LABS: BASOPHILS # (AUTO) 0.1 10^3/uL (0.0-0.1); BASOPHILS % (AUTO) 0.6 %; EOSINOPHILS % (AUTO) 0.3 %; HGB - HEMOGLOBIN 10.1 g/dL (14.0-18.0); LYMPHOCYTES # (AUTO) 0.9 10^3/uL (1.5-3.5); LYMPHOCYTES % (AUTO) 7.2 %; MEAN CORPUSCULAR HEMOGLOBIN 29.8 pg (27.0-31.0); MEAN CORPUSCULAR HGB CONC 31.6 g/dL (32.0-36.0); MEAN CORPUSCULAR VOLUME 94.4 fL (80.0-94.0); MEAN PLATELET VOLUME 8.8 fL (7.4-11.4); MONOCYTES # (AUTO) 0.9 10^3/uL (0.0-1.0); MONOCYTES % (AUTO) 6.8 %; NEUTROPHILS # (AUTO) 10.7 10^3/uL (1.5-6.6); NEUTROPHILS % (AUTO) 84.3 %; PLT - PLATELET COUNT 315 10^3/uL (130-450); RED BLOOD COUNT 3.39 10^6/uL (4.70-6.10); RED CELL DISTRIBUTION WIDTH 16.4 % (12.0-15.0); WHITE BLOOD COUNT 12.6 x10^3/uL (4.8-10.8)
[2022-07-16 05:11] LABS: CALCIUM 7.6 mg/dL (8.5-10.3); CREATININE 0.8 mg/dL (0.6-1.2); MAGNESIUM 1.9 mg/dL (1.7-2.8); PHOSPHORUS 2.8 mg/dL (2.5-4.6); POTASSIUM 2.9 mmol/L (3.5-5.0)
[2022-07-16] MEDS: DEXTROSE 5%-0.9% NACL 1,000 ML IV SCH ×3 (06:09→23:44)
--- NOTE | 2022-07-16 08:12 | PROVIDER PROGRESS NOTE ---
Subjective - Subjective Pt reports feeling: Improved (Slightly more alert and awake, denies any pain but feels cold, wants more blankets, no rigors) Objective - Vital Signs/Intake & Output Vital Signs: Vital Signs Temp Pulse Resp BP Pulse Ox 07/16/22 08:01 36.7 C 85 24 102/83 H 99 07/16/22 07:00 78 19 130/74 100 07/16/22 06:00 80 19 127/76 99 07/16/22 05:32 77 19 117/66 99 07/16/22 04:25 36.8 C Intake & Output: Intake & Output 07/13/22 07/14/22 07/15/22 07/16/22 23:59 23:59 23:59 23:59 Intake Total 3076.667 1223.333 Output Total 25 125 Balance 3051.667 1098.333 - Objective General Appearance: positive: No acute distress, Alert, Lethargic, Other (Skin of face is freeman and tanned) Eyes Bilateral: positive: Normal inspection, No lid inflammation ENT: positive: ENT inspection nml, No signs of dehydration, Other (Good dentition) Neck: positive: Nml inspection, No JVD Respiratory: positive: No respiratory distress, Breath sounds nml Cardiovascular: positive: Regular rate & rhythm, No murmur Abdomen: positive: Non-tender, No distention Skin: positive: Warm, Dry Extremities: positive: Non-tender, No pedal edema Neurologic/Psychiatric: positive: Oriented x3, Motor nml - Lab Results Fish Bones: 07/16/22 04:50 07/16/22 04:50 Other Labs: Lab Results x24hrs 07/16/22 07/16/22 07/16/22 Range/Units 04:50 04:50 04:50 WBC 12.6 H (4.8-10.8) x10^3/uL RBC 3.39 L (4.70-6.10) 10^6/uL Hgb 10.1 L (14.0-18.0) g/dL Hct 32.0 L (42.0-52.0) % MCV 94.4 H (80.0-94.0) fL MCH 29.8 (27.0-31.0) pg MCHC 31.6 L (32.0-36.0) g/dL RDW 16.4 H (12.0-15.0) % Plt Count 315 (130-450) 10^3/uL MPV 8.8 (7.4-11.4) fL Neut # (Auto) 10.7 H (1.5-6.6) 10^3/uL Lymph # (Auto) 0.9 L (1.5-3.5) 10^3/uL [place] # (Auto) 0.9 (0.0-1.0) 10^3/uL Eos # (Auto) 0.0 (0.0-0.7) 10^3/uL Baso # (Auto) 0.1 (0.0-0.1) 10^3/uL Absolute Nucleated RBC 0.00 x10^3/uL Nucleated RBC % 0.0 /100WBC PT (9.9-12.6) secs INR (0.8-1.2) Sodium 139 (135-145) mmol/L Potassium 2.9 L (3.5-5.0) mmol/L Chloride 109 (101-111) mmol/L Carbon Dioxide 25 (21-32) mmol/L Anion Gap 5.0 L (6-13) BUN 14 (6-20) mg/dL Creatinine 0.8 (0.6-1.2) mg/dL Estimated GFR (MDRD) 91 (>89) Glucose 108 H (70-100) mg/dL Lactic Acid 1.7 (0.5-2.2) mmol/L Calcium 7.6 L (8.5-10.3) mg/dL Phosphorus 2.8 (2.5-4.6) mg/dL Magnesium 1.9 (1.7-2.8) mg/dL Total Bilirubin (0.2-1.0) mg/dL AST (10-42) IU/L ALT (10-60) IU/L Alkaline Phosphatase (42-121) IU/L Total Protein (6.7-8.2) g/dL Albumin (3.2-5.5) g/dL Globulin (2.1-4.2) g/dL Albumin/Globulin Ratio (1.0-2.2) Urine Color Urine Clarity (CLEAR) Urine pH (5.0-7.5) PH Ur Specific Wallace (1.002-1.030) Urine Protein (NEGATIVE) mg/dL Urine Glucose (UA) (NEGATIVE) mg/dL Urine Ketones (NEGATIVE) mg/dL Urine Occult Blood (NEGATIVE) Urine Nitrite (NEGATIVE) Urine Bilirubin (NEGATIVE) Urine Urobilinogen (NORMAL) E.U./dL Ur Leukocyte Esterase (NEGATIVE) Urine RBC (0-5) /HPF Urine WBC (0-3) /HPF Urine WBC Clumps Ur Squamous Epith Cells (<= Few) Amorphous Sediment /LPF Urine Bacteria (None Seen) /HPF Urine Casts /LPF Urine Yeast Urine Culture Comments Nasal Screen MRSA (PCR) (NEGATIVE) 07/15/22 07/15/22 07/15/22 Range/Units 22:55 19:44 19:05 WBC (4.8-10.8) x10^3/uL RBC (4.70-6.10) 10^6/uL Hgb (14.0-18.0) g/dL Hct (42.0-52.0) % MCV (80.0-94.0) fL MCH (27.0-31.0) pg MCHC (32.0-36.0) g/dL RDW (12.0-15.0) % Plt Count (130-450) 10^3/uL MPV (7.4-11.4) fL Neut # (Auto) (1.5-6.6) 10^3/uL Lymph # (Auto) (1.5-3.5) 10^3/uL [place] # (Auto) (0.0-1.0) 10^3/uL Eos # (Auto) (0.0-0.7) 10^3/uL Baso # (Auto) (0.0-0.1) 10^3/uL Absolute Nucleated RBC x10^3/uL Nucleated RBC % /100WBC PT (9.9-12.6) secs INR (0.8-1.2) Sodium (135-145) mmol/L Potassium (3.5-5.0) mmol/L Chloride (101-111) mmol/L Carbon Dioxide (21-32) mmol/L Anion Gap (6-13) BUN (6-20) mg/dL Creatinine (0.6-1.2) mg/dL Estimated GFR (MDRD) (>89) Glucose (70-100) mg/dL Lactic Acid 2.1 2.0 (0.5-2.2) mmol/L Calcium (8.5-10.3) mg/dL Phosphorus (2.5-4.6) mg/dL Magnesium (1.7-2.8) mg/dL Total Bilirubin (0.2-1.0) mg/dL AST (10-42) IU/L ALT (10-60) IU/L Alkaline Phosphatase (42-121) IU/L Total Protein (6.7-8.2) g/dL Albumin (3.2-5.5) g/dL Globulin (2.1-4.2) g/dL Albumin/Globulin Ratio (1.0-2.2) Urine Color Urine Clarity (CLEAR) Urine pH (5.0-7.5) PH Ur Specific Wallace (1.002-1.030) Urine Protein (NEGATIVE) mg/dL Urine Glucose (UA) (NEGATIVE) mg/dL Urine Ketones (NEGATIVE) mg/dL Urine Occult Blood (NEGATIVE) Urine Nitrite (NEGATIVE) Urine Bilirubin (NEGATIVE) Urine Urobilinogen (NORMAL) E.U./dL Ur Leukocyte Esterase (NEGATIVE) Urine RBC (0-5) /HPF Urine WBC (0-3) /HPF Urine WBC Clumps Ur Squamous Epith Cells (<= Few) Amorphous Sediment /LPF Urine Bacteria (None Seen) /HPF Urine Casts /LPF Urine Yeast Urine Culture Comments Nasal Screen MRSA (PCR) NEGATIVE (NEGATIVE) 07/15/22 07/15/22 07/15/22 Range/Units 16:28 13:02 13:02 WBC (4.8-10.8) x10^3/uL RBC (4.70-6.10) 10^6/uL Hgb (14.0-18.0) g/dL Hct (42.0-52.0) % MCV (80.0-94.0) fL MCH (27.0-31.0) pg MCHC (32.0-36.0) g/dL RDW (12.0-15.0) % Plt Count (130-450) 10^3/uL MPV (7.4-11.4) fL Neut # (Auto) (1.5-6.6) 10^3/uL Lymph # (Auto) (1.5-3.5) 10^3/uL [place] # (Auto) (0.0-1.0) 10^3/uL Eos # (Auto) (0.0-0.7) 10^3/uL Baso # (Auto) (0.0-0.1) 10^3/uL Absolute Nucleated RBC x10^3/uL Nucleated RBC % /100WBC PT 21.4 H (9.9-12.6) secs INR 2.0 H (0.8-1.2) Sodium (135-145) mmol/L Potassium (3.5-5.0) mmol/L Chloride (101-111) mmol/L Carbon Dioxide (21-32) mmol/L Anion Gap (6-13) BUN (6-20) mg/dL Creatinine (0.6-1.2) mg/dL Estimated GFR (MDRD) (>89) Glucose (70-100) mg/dL Lactic Acid 2.7 H 4.0 H* (0.5-2.2) mmol/L Calcium (8.5-10.3) mg/dL Phosphorus (2.5-4.6) mg/dL Magnesium (1.7-2.8) mg/dL Total Bilirubin (0.2-1.0) mg/dL AST (10-42) IU/L ALT (10-60) IU/L Alkaline Phosphatase (42-121) IU/L Total Protein (6.7-8.2) g/dL Albumin (3.2-5.5) g/dL Globulin (2.1-4.2) g/dL Albumin/Globulin Ratio (1.0-2.2) Urine Color Urine Clarity (CLEAR) Urine pH (5.0-7.5) PH Ur Specific Wallace (1.002-1.030) Urine Protein (NEGATIVE) mg/dL Urine Glucose (UA) (NEGATIVE) mg/dL Urine Ketones (NEGATIVE) mg/dL Urine Occult Blood (NEGATIVE) Urine Nitrite (NEGATIVE) Urine Bilirubin (NEGATIVE) Urine Urobilinogen (NORMAL) E.U./dL Ur Leukocyte Esterase (NEGATIVE) Urine RBC (0-5) /HPF Urine WBC (0-3) /HPF Urine WBC Clumps Ur Squamous Epith Cells (<= Few) Amorphous Sediment /LPF Urine Bacteria (None Seen) /HPF Urine Casts /LPF Urine Yeast Urine Culture Comments Nasal Screen MRSA (PCR) (NEGATIVE) 07/15/22 07/15/22 07/15/22 Range/Units 13:02 13:02 13:00 WBC 8.4 (4.8-10.8) x10^3/uL RBC 3.81 L (4.70-6.10) 10^6/uL Hgb 11.2 L (14.0-18.0) g/dL Hct 36.1 L (42.0-52.0) % MCV 94.8 H (80.0-94.0) fL MCH 29.4 (27.0-31.0) pg MCHC 31.0 L (32.0-36.0) g/dL RDW 16.1 H (12.0-15.0) % Plt Count 434 (130-450) 10^3/uL MPV 8.9 (7.4-11.4) fL Neut # (Auto) 7.5 H (1.5-6.6) 10^3/uL Lymph # (Auto) 0.5 L (1.5-3.5) 10^3/uL [place] # (Auto) 0.1 (0.0-1.0) 10^3/uL Eos # (Auto) 0.1 (0.0-0.7) 10^3/uL Baso # (Auto) 0.1 (0.0-0.1) 10^3/uL Absolute Nucleated RBC 0.07 x10^3/uL Nucleated RBC % 0.8 /100WBC PT (9.9-12.6) secs INR (0.8-1.2) Sodium 139 (135-145) mmol/L Potassium 3.0 L (3.5-5.0) mmol/L Chloride 104 (101-111) mmol/L Carbon Dioxide 24 (21-32) mmol/L Anion Gap 11.0 (6-13) BUN 14 (6-20) mg/dL Creatinine 0.9 (0.6-1.2) mg/dL Estimated GFR (MDRD) 80 L (>89) Glucose 113 H (70-100) mg/dL Lactic Acid (0.5-2.2) mmol/L Calcium 8.3 L (8.5-10.3) mg/dL Phosphorus (2.5-4.6) mg/dL Magnesium (1.7-2.8) mg/dL Total Bilirubin 1.7 H (0.2-1.0) mg/dL AST 33 (10-42) IU/L ALT 24 (10-60) IU/L Alkaline Phosphatase 345 H (42-121) IU/L Total Protein 5.6 L (6.7-8.2) g/dL Albumin 2.2 L (3.2-5.5) g/dL Globulin 3.4 (2.1-4.2) g/dL Albumin/Globulin Ratio 0.6 L (1.0-2.2) Urine Color DARK YELLOW Urine Clarity CLEAR (CLEAR) Urine pH 5.5 (5.0-7.5) PH Ur Specific Wallace 1.020 (1.002-1.030) Urine Protein NEGATIVE (NEGATIVE) mg/dL Urine Glucose (UA) NEGATIVE (NEGATIVE) mg/dL Urine Ketones NEGATIVE (NEGATIVE) mg/dL Urine Occult Blood NEGATIVE (NEGATIVE) Urine Nitrite POSITIVE H (NEGATIVE) Urine Bilirubin NEGATIVE (NEGATIVE) Urine Urobilinogen 0.2 (NORMAL) (NORMAL) E.U./dL Ur Leukocyte Esterase TRACE H (NEGATIVE) Urine RBC None Seen (0-5) /HPF Urine WBC 0-3 (0-3) /HPF Urine WBC Clumps NONE SEEN Ur Squamous Epith Cells RARE Squamous (<= Few) Amorphous Sediment Few /LPF Urine Bacteria Rare (None Seen) /HPF Urine Casts 0-2 Hyaline Casts /LPF Urine Yeast PRESENT Urine Culture Comments INDICATED Nasal Screen MRSA (PCR) (NEGATIVE) Sepsis Event Note (H) - Evaluation Current Stage of Sepsis: Sepsis Possible source of Sepsis: positive: Genitourinary - Sepsis Criteria Sepsis Criteria: Recorded Heart Rate greater than 90 bpm, Recorded Respiratory Rate greater than 20, CREDIT AND COLLECTIONS ANALYST: altered consciousness (unrelated to primary neuro pathology), Metabolic: lactate > 2 mmol/L Assessment/Plan - Problem List (1) Sepsis Impression: He had criteria for sepsis including tachycardia, elevated Lactic acid level, fever, tachypnea, altered mental status and abnormal urinalysis He was started on IV fluids and empiric antibx, with a presume urinary source Plan: We will continue with empiric IV antibiotics using IV cefepime and IV Vanco Await all his culture results to tailor antibx I will try to contact ID (2) Gram-neg bacteremia He initially had E coli bacteremia and was called back to be admitted, when he had the first fever on 07/07/22. He was then hospitalized here from 07/08 to 07/10 and got iv Ceftriaxone, which was transitioned to po Cipro, but he never finished the Cipro because he had a fever the next day, 07/11 and came back to ER. Blood cultures from that date were negative. He was monitored in the ER and Gen Surg did consult, since CT scanning of the abdomen on that ER visit demonstrated metastatic disease to the liver so consideration was given to a cholecystostomy tube, however that was felt to be difficult with the metastatic disease in his liver. Since a GB source was suspected, he was sent home on 07/12 with antibx changed to po Augmentin and Flagyl. He took those for 3 days and came back yesterday 07/15 with a fever again. The blood cultures that were drawn in the ER yesterday have turned positive for gram-negative bacteria. Plan: Continue with empiric IV cefepime and, now empiric IV Vanco I plan to contact infectious disease to review his course and his management and our choice of antibiotics We will check a PSA to recheck for prostatitis We will follow his CRP Follow CBC daily (3) UTI (urinary tract infection) Conclusion/Plan: He had an abnormal urinalysis yesterday, culture was indicated. He has a history of recurrent UTIs with abnormal bladder and prostate anatomy Plan: We will continue with IV cefepime and empiric IV Vanco We will order straight cath and consider Brice if there is evidence of urinary obstruction We will check a PSA to recheck for prostatitis (4) Metastatic melanoma Conclusion/Plan: He gets oral Braftovi and Mektovi for the treatment of his metastatic melanoma. He is currently being managed by Dr. Arianna Reeder at [facility]. His immunotherapy has been on hold since the first fever earlier this month (07/07), since his fever and infection has not cleared Plan: Will inform Dr Reeder tomorrow (Sun) about this hospitalization with recurrent bacteremia and ask for any recommendations, since no attendings are motion picture printer at [facility] on weekends (today is Sun) (5) Pacemaker Conclusion/Plan: As per history. Plan: Because he has a history of A-fib and is currently tachycardic, he is on telemetry Today I ordered an Echocardiogram to evaluate for possible subacute infection on his pacer leads. (But today is Sunday and we have no wastewater technician here except Sunday through ). In addition, he may need more thorough evaluation, as with a KATHARINA, then he would need transfer to a larger hospital. (6) Hypokalemia Conclusion/Plan: Possibly from poor intake during his AMS Plan: We will give IV K riders Follow BMP daily (7) Dementia As per history he has mild dementia, the makes most of his decisions Plan: If there are any meds for his dementia, we will start these once the medication list is reconciled by pharmacy (8) AMS (altered mental status) Conclusion/Plan: Resolved. He has presented several times with somnolence and confusion, when he has had a fever and infection. By the time he was in his ICU bed last night 07/15 from the ER, he was sleepy but awoke to converse normally and was alert and oriented x3. Plan: Because this is his fourth presentation within 2 weeks with confusion, he was admitted to the ICU. Remain in ICU today, given the new bacteremia and "soft" BP We will give supportive care, treat his fever and dehydration and infection.
[2022-07-16] MEDS: POTASSIUM CHLOR 10 MEQ/100 ML 10 MEQ/100 ML BAG IV SCH ×4 (08:44→12:03)
--- NOTE | 2022-07-16 11:24 | PHARMACY PROGRESS NOTE ---
- Best Possible Medication History Admit Date and Time: 07/15/22 1828 Processed by: Pharmacy Medication History completed: Yes Patient Interview: Pt unable to participate Secondary Source(s): Physician records, Insurance records, Previous admit rec ords As the person ultimately responsible for medication therapy, providers are able to order a medication from an existing home medication list in [facility] via the "Reconcile Routine" prior to Confirmation of that medication by residential support specialist. Such practice is discouraged except when the physician, in their clinical judgment, deems that a medical need exists for a medication without regard to previous use.
[2022-07-16 14:49] LABS: CALCIUM, IONIZED 1.09 mmol/L (1.15-1.33); VBG PH 7.433 (7.31-7.41)
[2022-07-16] MEDS ORDERED: VANCOMYCIN INJ 1 GM, VANCOMYCIN INJ 250 MG in SODIUM CHLORIDE 0.9% 250 ML IV SCH (17:00)
[2022-07-16] MEDS: CALCIUM CARBONATE CHEW 500 MG TABLET PO SCH ×2 (17:16→21:50)
[2022-07-16] MEDS: POTASSIUM CHLORIDE 20 MEQ TABLET PO SCH ×2 (17:16→18:43)
--- NOTE | 2022-07-16 19:06 | PROVIDER PROGRESS NOTE ---
Hospitalist Cross-cover Note - Cross-Cover Note Cross-Cover Note: I was called to see patient at 1850 who had fallen out of bed. The patient's bed alarm was not on. The telemetry ROAD WORKER thought that she noticed an abnormal irregular heart rhythm and informed his nurse. The nurse and CARROTING MACHINE OFFBEARER went in to see the patient and found him on the floor, right near the bed, head was almost against the wall. He was able to be helped into bed by staff. He told his nurse that he tried to get out of bed on his own and literally climbed over the bed rail, which was up. He said he had to urinate. He was able to remember that he hit his head approximately in the occiput in the middle. He denied any headache, skin tear, neurologic symptoms. He said he did it because he is "mostly independent at home". I did a neuro exam on the patient, and there are no focal neurologic deficits. He does have a "bump" right at the back of his head but it is nontender. Plan: C-collar ordered to be applied Stat CT head and C-spine CT ordered. Order written for nursing to remind them to keep the bed alarm on when the patient is alone in the room. I contacted the and informed her of this event. Remain on telemetry to observe for any other arrhythmias, since that may have been just telemetry artifact, from the motion of his body.
--- NOTE | 2022-07-16 19:45 | CT Report ---
PROCEDURE: HEAD WO INDICATIONS: Fell OOB onto his head TECHNIQUE: Noncontrast 4.5 mm thick angled axial sections acquired from the foramen magnum to the vertex. For r adiation dose reduction, the following was used: automated exposure control, adjustment of mA and/or kV according to patient size. COMPARISON: Correlation is made with the accompanying imaging. FINDINGS: Image quality: Excellent. CSF spaces: Basal cisterns are patent. No extra-axial fluid collections. Ventricles are normal in size and shape. Brain: No midline shift. No intracranial masses or hemorrhage. Amaro-white matter interface is norm al. Skull and face: Calvarium and visualized facial bones are intact, without suspicious lesions. Sinuses: Visualized sinuses and mastoids are clear. IMPRESSION: Negative head CT, without acute intracranial hemorrhage or other significant abnormality . Reviewed by: Scott Puga MD on 07/16/2022 6:44 PM GUILLERMO Approved by: Scott Puga MD on 07/16/2022 6:44 PM GUILLERMO Station ID: [id number]
--- NOTE | 2022-07-16 19:47 | CT Report ---
PROCEDURE: CERVICAL SPINE WO INDICATIONS: Pt fell OOB onto his head TECHNIQUE: Noncontrast 3 mm thick sections acquired from the skull base to the T4 level. Sagittal and coronal r eformats were then constructed. For radiation dose reduction, the following was used: automated exp osure control, adjustment of mA and/or kV according to patient size. COMPARISON: Correlation is made with the accompanying imaging, 07/16/2022. FINDINGS: Image quality: Excellent. Bones: No fractures or dislocations. Visualized superior ribs are intact. Focal degenerative change can be seen involving the C1-C2 interface anteriorly. There is at least mod erate disc space narrowing seen at C4-C5, with moderate severe disc space narrowing at C4-C5, with a degree of fusion. At C6-C7, there is at least moderate disc space narrowing seen. Soft tissues: Prevertebral soft tissues are normal in thickness. No paravertebral hematomas. No ap ical pneumothoraces. Moderate bilateral pleural effusions are partially seen. Left-sided pacer leads are partially seen. Right neck soft tissue clips can be seen, as on series 5 image 26. IMPRESSION: No acute fracture can be seen. Cervical spine degenerative changes are seen, which are worst inferiorly. Moderate bilateral pleural effusions are partially seen. Additional findings: Right soft tissue neck clips Left sided pacer leads Reviewed by: Scott Puga MD on 07/16/2022 6:46 PM AKOMEGA Approved by: Scott Puga MD on 07/16/2022 6:46 PM GUILLERMO Station ID: [id number]
[2022-07-17] MEDS: CEFEPIME 2 GM in SODIUM CHLORIDE 0.9% MINIBAG 100 ML IV SCH ×2 (03:59→15:52)
[2022-07-17 05:11] LABS: BASOPHILS # (AUTO) 0.1 10^3/uL (0.0-0.1); BASOPHILS % (AUTO) 0.4 %; EOSINOPHILS # (AUTO) 0.2 10^3/uL (0.0-0.7); EOSINOPHILS % (AUTO) 1.7 %; HGB - HEMOGLOBIN 10.2 g/dL (14.0-18.0); LYMPHOCYTES % (AUTO) 7.6 %; MEAN CORPUSCULAR HEMOGLOBIN 29.6 pg (27.0-31.0); MEAN CORPUSCULAR HGB CONC 30.9 g/dL (32.0-36.0); MEAN CORPUSCULAR VOLUME 95.7 fL (80.0-94.0); MEAN PLATELET VOLUME 9.6 fL (7.4-11.4); MONOCYTES # (AUTO) 1.2 10^3/uL (0.0-1.0); MONOCYTES % (AUTO) 8.8 %; NEUTROPHILS % (AUTO) 80.5 %; PLT - PLATELET COUNT 369 10^3/uL (130-450); RED BLOOD COUNT 3.45 10^6/uL (4.70-6.10); RED CELL DISTRIBUTION WIDTH 16.7 % (12.0-15.0); WHITE BLOOD COUNT 13.6 x10^3/uL (4.8-10.8)
[2022-07-17 05:27] LABS: CALCIUM, IONIZED 1.18 mmol/L (1.15-1.33); PHOSPHORUS 2.2 mg/dL (2.5-4.6); VBG PH 7.347 (7.31-7.41)
[2022-07-17 05:31] LABS: CALCIUM 8.3 mg/dL (8.5-10.3); CREATININE 0.9 mg/dL (0.6-1.2); CRP - C-REACTIVE PROTEIN 9.2 mg/dL (0-1.0); POTASSIUM 3.8 mmol/L (3.5-5.0)
[2022-07-17] MEDS: NEUTRA-PHOS 250 MG TABLET PO SCH ×2 (08:30→10:47)
[2022-07-17] MEDS: SODIUM CHLORIDE FLUSH 0.9% 10 ML SYRINGE IVP SCH ×2 (08:42→17:45)
--- NOTE | 2022-07-17 09:04 | PROVIDER PROGRESS NOTE ---
Subjective - Subjective Pt reports feeling: No change (Awake with poor diet in the morning, asleep and napping most of the afternoon, is at bed and said that is his usual routine) Objective - Vital Signs/Intake & Output Vital Signs: Vital Signs Temp Pulse Resp BP Pulse Ox 07/17/22 08:00 36.7 C 85 20 127/76 93 07/17/22 06:25 85 18 140/80 H 100 07/17/22 05:00 89 19 102/66 99 Intake & Output: Intake & Output 07/14/22 07/15/22 07/16/22 07/17/22 23:59 23:59 23:59 23:59 Intake Total 3076.667 4518.333 Output Total 25 125 Balance 3051.667 4393.333 - Objective General Appearance: positive: No acute distress, Lethargic Eyes Bilateral: positive: Normal inspection, EOMI ENT: positive: ENT inspection nml, No signs of dehydration, Other (good dentition) Respiratory: positive: No respiratory distress, Breath sounds nml Cardiovascular: positive: Regular rate & rhythm, No murmur Abdomen: positive: Non-tender, Nml bowel sounds, No distention Skin: positive: Warm, Dry Extremities: positive: Non-tender, No pedal edema Neurologic/Psychiatric: positive: Oriented x3, Motor nml, Other (Poor memory) - Lab Results Fish Bones: 07/17/22 04:14 07/17/22 04:14 Other Labs: Lab Results x24hrs 07/17/22 07/17/22 07/17/22 Range/Units 04:14 04:14 04:14 WBC (4.8-10.8) x10^3/uL RBC (4.70-6.10) 10^6/uL Hgb (14.0-18.0) g/dL Hct (42.0-52.0) % MCV (80.0-94.0) fL MCH (27.0-31.0) pg MCHC (32.0-36.0) g/dL RDW (12.0-15.0) % Plt Count (130-450) 10^3/uL MPV (7.4-11.4) fL Neut # (Auto) (1.5-6.6) 10^3/uL Lymph # (Auto) (1.5-3.5) 10^3/uL [place] # (Auto) (0.0-1.0) 10^3/uL Eos # (Auto) (0.0-0.7) 10^3/uL Baso # (Auto) (0.0-0.1) 10^3/uL Absolute Nucleated RBC x10^3/uL Nucleated RBC % /100WBC VBG pH 7.347 (7.31-7.41) Ionized Calcium 1.18 (1.15-1.33) mmol/L Sodium 140 (135-145) mmol/L Potassium 3.8 (3.5-5.0) mmol/L Chloride 108 (101-111) mmol/L Carbon Dioxide 25 (21-32) mmol/L Anion Gap 7.0 (6-13) BUN 15 (6-20) mg/dL Creatinine 0.9 (0.6-1.2) mg/dL Estimated GFR (MDRD) 80 L (>89) Glucose 116 H (70-100) mg/dL Calcium 8.3 L (8.5-10.3) mg/dL Phosphorus 2.2 L (2.5-4.6) mg/dL Magnesium 2.0 (1.7-2.8) mg/dL C-Reactive Protein 9.2 H (0-1.0) mg/dL PSA Screen (0.000-2.000) ng/mL Stl C. diff Tox B Gene (NEGATIVE) 07/17/22 07/16/22 07/16/22 Range/Units 04:14 17:20 14:41 WBC 13.6 H (4.8-10.8) x10^3/uL RBC 3.45 L (4.70-6.10) 10^6/uL Hgb 10.2 L (14.0-18.0) g/dL Hct 33.0 L (42.0-52.0) % MCV 95.7 H (80.0-94.0) fL MCH 29.6 (27.0-31.0) pg MCHC 30.9 L (32.0-36.0) g/dL RDW 16.7 H (12.0-15.0) % Plt Count 369 (130-450) 10^3/uL MPV 9.6 (7.4-11.4) fL Neut # (Auto) 11.0 H (1.5-6.6) 10^3/uL Lymph # (Auto) 1.0 L (1.5-3.5) 10^3/uL [place] # (Auto) 1.2 H (0.0-1.0) 10^3/uL Eos # (Auto) 0.2 (0.0-0.7) 10^3/uL Baso # (Auto) 0.1 (0.0-0.1) 10^3/uL Absolute Nucleated RBC 0.00 x10^3/uL Nucleated RBC % 0.0 /100WBC VBG pH 7.433 H (7.31-7.41) Ionized Calcium 1.09 L (1.15-1.33) mmol/L Sodium (135-145) mmol/L Potassium (3.5-5.0) mmol/L Chloride (101-111) mmol/L Carbon Dioxide (21-32) mmol/L Anion Gap (6-13) BUN (6-20) mg/dL Creatinine (0.6-1.2) mg/dL Estimated GFR (MDRD) (>89) Glucose (70-100) mg/dL Calcium (8.5-10.3) mg/dL Phosphorus (2.5-4.6) mg/dL Magnesium (1.7-2.8) mg/dL C-Reactive Protein (0-1.0) mg/dL PSA Screen (0.000-2.000) ng/mL Stl C. diff Tox B Gene NEGATIVE (NEGATIVE) 07/16/22 07/15/22 Range/Units 14:41 13:02 WBC (4.8-10.8) x10^3/uL RBC (4.70-6.10) 10^6/uL Hgb (14.0-18.0) g/dL Hct (42.0-52.0) % MCV (80.0-94.0) fL MCH (27.0-31.0) pg MCHC (32.0-36.0) g/dL RDW (12.0-15.0) % Plt Count (130-450) 10^3/uL MPV (7.4-11.4) fL Neut # (Auto) (1.5-6.6) 10^3/uL Lymph # (Auto) (1.5-3.5) 10^3/uL [place] # (Auto) (0.0-1.0) 10^3/uL Eos # (Auto) (0.0-0.7) 10^3/uL Baso # (Auto) (0.0-0.1) 10^3/uL Absolute Nucleated RBC x10^3/uL Nucleated RBC % /100WBC VBG pH (7.31-7.41) Ionized Calcium (1.15-1.33) mmol/L Sodium (135-145) mmol/L Potassium 3.5 (3.5-5.0) mmol/L Chloride (101-111) mmol/L Carbon Dioxide (21-32) mmol/L Anion Gap (6-13) BUN (6-20) mg/dL Creatinine (0.6-1.2) mg/dL Estimated GFR (MDRD) (>89) Glucose (70-100) mg/dL Calcium (8.5-10.3) mg/dL Phosphorus (2.5-4.6) mg/dL Magnesium (1.7-2.8) mg/dL C-Reactive Protein (0-1.0) mg/dL PSA Screen 0.353 (0.000-2.000) ng/mL Stl C. diff Tox B Gene (NEGATIVE) Sepsis Event Note (H) - Evaluation Current Stage of Sepsis: Sepsis Possible source of Sepsis: positive: Genitourinary - Sepsis Criteria Sepsis Criteria: Recorded Heart Rate greater than 90 bpm, Recorded Respiratory Rate greater than 20, ROAD DESIGN DRAFTSPERSON: altered consciousness (unrelated to primary neuro pathology), Metabolic: lactate > 2 mmol/L Assessment/Plan - Problem List (1) E coli bacteremia Impression: He initially had E coli bacteremia grew in blood cx when he had the first fever on 07/07/22. He was then hospitalized here from 07/08 to 07/10 and got iv Ceftriaxone, which was transitioned to po Cipro. He never finished the Cipro because he had a fever the next day, 07/11 and came back to ER. Blood cultures from that date were negative. He was monitored in the ER and Gen Surg did consult, since CT scanning of the abdomen on that ER visit demonstrated GB source suspected. So he was sent home from the ER on 07/12 with antibx changed to po Augmentin and Flagyl. He took those for 3 days and came back 07/15 with a fever again and is now admitted again. Two of 2 blood cultures that were drawn in the ER this time 07/15, have turned positive for E coli, sensitivities are still pending. We started empiric IV cefepime and empiric IV Vanco, which he has now received for 2.5 days. Plan: Will stop the empiric Vanco, since no other or gram pos bacteria is growing I plan to contact infectious disease to review his prior course and his management and our choice of antibiotics>> I called ID at and there is no one avail for consults today A PSA was ordered to recheck for prostatitis, it is a send-out lab and not back yet We will follow his WBC and CRP daily He is stable to move out of ICU today to [facility] (2) Fall during current hospitalization Impression: Yesterday 07/16/22 at about 1830, the pt fell out of bed. It was unwitnessed. The patient's bed alarm was not on. The telemetry DELIVERY PERSON thought that she noticed an abnormal irregular heart rhythm, poss VT, and informed his nurse. The nurse and CLINICAL DIETICIAN went in to see the patient and found him on the floor, right near the bed, head was almost against the wall, both bedrails were up. He told his nurse that he climbed over the bed rail because he had to urinate. He was able to remember that he hit his head approximately on the occiput in the middle. He denied any headache, there was no skin tear, or neurologic deficit when I examined him. He did have a "bump" right at the back of his head but it is nontender. I contacted the and informed her of this event. A c-collar was placed, he underwent STAT CT head and C-spine CT which were neg and c-collar was removed. An order was written to remind nursing to keep the bed alarm on when the patient is alone in the room. I spoke to the today and she says she has help w/ caregivers for him. Plan: Remain on telemetry to observe for any other arrhythmias, since I suspect that possible VT was just telemetry artifact, from the motion of his body. PT and OT to continue working with him. Due to dementia, he did not remember to call for help before he climbed OOB. Will ask that SW speak to the to assure he will have constant supervision if DCh to home is under 's care. (3) Yeast UTI Impression: He had an abnormal urinalysis at admission, culture was indicated. 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 This urine culture has not grown the E. coli which is causing the bacteremia current Plan: We will continue with IV cefepime A PSA was ordered to recheck for prostatitis, it is a send-out lab and not back yet (4) Metastatic melanoma Conclusion/Plan: He gets oral Braftovi and Mektovi for the treatment of his metastatic melanoma. He is currently being managed by Dr. Arianna Reeder at [facility]. His immunotherapy has been on hold since the first fever earlier this month (07/07), since his fever and infection has not cleared Today I spoke to his Oncol, Dr Arianna Reeder at [facility], about this hospitaliza tion with recurrent bacteremia ([phone]) and she said that this time iv antibx should be continued longer. I said unfortunately we do not have a source therefore we do not know the exact duration for treatment and I said I would call ID at . She agreed. (5) Pacemaker Conclusion/Plan: As per history. Plan: Because he has a history of A-fib and presented tachycardic, he remains on telemetry I have ordered an Echocardiogram to evaluate for possible subacute infection on his pacer leads, however E coli usually does not cause vegetations. (Today is Sun and we have no surface water technician here except Sunday through ). He may need more thorough evaluation, as with a KATHARINA, then he would need transfer to a larger hospital. (6) Hypokalemia Conclusion/Plan: Possibly from poor intake during his AMS Plan: We will give IV K riders Follow BMP daily (7) Dementia Conclusion/Plan: As per history he has mild dementia, the makes most of his decisions He is on no meds for his dementia Plan: Given the fall (see #2), he will need to have constant supervision going forward . (8) AMS (altered mental status) Conclusion/Plan: Resolved. He has presented several times with somnolence and confusion, when he has had a fever and infection. By the time he was in his ICU bed on 07/15 from the ER, he was sleepy but awoke to converse normally and was alert and oriented x3. Plan: Because this is his fourth presentation within 2 weeks with confusion, he was admitted to the ICU. Remain in ICU today, given the new bacteremia and "soft" BP, then transfer to [facility] as BP improves We will give supportive care, treat his fever and dehydration and infection. (9) Sepsis Impression: Resolved He had criteria for sepsis including tachycardia, elevated Lactic acid level, fever, tachypnea, altered mental status and abnormal urinalysis He was started on IV fluids and empiric antibx, with a presume urinary source. We started empiric IV cefepime and empiric IV Vanco, which he has now received for 2.5 days. Plan: We will continue with empiric IV cefepime and stop Vanco Await all his culture results to tailor antibx I will try to contact ID
[2022-07-17] MEDS: DEXTROSE 5%-0.9% NACL 1,000 ML IV SCH ×2 (11:55→22:42)
[2022-07-17] MEDS ORDERED: NEUTRA-PHOS 250 MG TABLET PO SCH (12:00)
[2022-07-17] MEDS: MULTIVITAMIN W/MINERALS TABLET PO SCH (17:45)
[2022-07-18] MEDS: CEFEPIME 2 GM in SODIUM CHLORIDE 0.9% MINIBAG 100 ML IV SCH ×2 (04:00→15:49)
[2022-07-18] MEDS: SODIUM CHLORIDE FLUSH 0.9% 10 ML SYRINGE IVP SCH ×3 (04:01→18:09)
[2022-07-18 04:51] LABS: CALCIUM, IONIZED 1.15 mmol/L (1.15-1.33); VBG PH 7.426 (7.31-7.41)
[2022-07-18] MEDS: ZINC OXIDE 20% OINT 30 GM TUBE TOP PRN (04:53)
[2022-07-18 05:09] LABS: CREATININE 0.9 mg/dL (0.6-1.2); CRP - C-REACTIVE PROTEIN 4.5 mg/dL (0-1.0); MAGNESIUM 1.9 mg/dL (1.7-2.8); PHOSPHORUS 2.5 mg/dL (2.5-4.6); POTASSIUM 3.2 mmol/L (3.5-5.0)
[2022-07-18 06:35] LABS: BASOPHILS # (AUTO) 0.1 10^3/uL (0.0-0.1); BASOPHILS % (AUTO) 0.5 %; EOSINOPHILS # (AUTO) 0.2 10^3/uL (0.0-0.7); EOSINOPHILS % (AUTO) 1.2 %; HCT - HEMATOCRIT 34.1 % (42.0-52.0); HGB - HEMOGLOBIN 10.6 g/dL (14.0-18.0); LYMPHOCYTES % (AUTO) 7.3 %; MEAN CORPUSCULAR HEMOGLOBIN 29.1 pg (27.0-31.0); MEAN CORPUSCULAR HGB CONC 31.1 g/dL (32.0-36.0); MEAN CORPUSCULAR VOLUME 93.7 fL (80.0-94.0); MEAN PLATELET VOLUME 9.3 fL (7.4-11.4); MONOCYTES # (AUTO) 1.1 10^3/uL (0.0-1.0); MONOCYTES % (AUTO) 8.1 %; NEUTROPHILS # (AUTO) 10.7 10^3/uL (1.5-6.6); NEUTROPHILS % (AUTO) 81.9 %; PLT - PLATELET COUNT 356 10^3/uL (130-450); RED BLOOD COUNT 3.64 10^6/uL (4.70-6.10); RED CELL DISTRIBUTION WIDTH 16.4 % (12.0-15.0)
[2022-07-18] MEDS: MULTIVITAMIN W/MINERALS TABLET PO SCH (08:30)
[2022-07-18] MEDS: DEXTROSE 5%-0.9% NACL 1,000 ML IV SCH ×2 (11:12→21:08)
[2022-07-18] MEDS ORDERED: POTASSIUM CHLORIDE 20 MEQ TABLET PO ONE (14:24)
--- NOTE | 2022-07-18 18:59 | PROVIDER PROGRESS NOTE ---
Subjective - Prog Note Date Prog Note Date: 07/18/22 Prog Note Time: 18:58 - Subjective Pt reports feeling: No change Subjective: He is a very forgetful man. Forgets within 5 to 7 minutes and I am repeating why he is here, and what is going on. He still remembers that he has melanoma. And that he is getting some pills for it. 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 He says he is not in much pain. His lower back aches but he grumbles that it is because of the bed. He also says he does not get much sleep here. Current Medications - Current Medications Current Medications: Active Medications Dextrose/Sodium Chloride (D5ns) 1,000 mls @ 100 mls/hr IV .Q10H [facility] Last Infusion: 07/18/22 16:30 Dose: 100 mls/hr Acetaminophen (Acetaminophen) 1,000 mg in 100 mls @ 400 mls/hr IV Q6HR PRN PRN Reason: Pain or Fever > 38C (100.4F) Cefepime HCl 2 gm/ Sodium (Chloride) 100 mls @ 200 mls/hr IV Q12H [facility] Last Infusion: 07/18/22 16:30 Dose: Infused Multi-Ingredient Ointment (Zinc Oxide 20% Oint 30 Gm Tube) 1 applic TOP PRN PRN PRN Reason: Skin Care Last Admin: 07/18/22 04:53 Dose: 1 applic Multivitamins/Minerals (Multivitamin W/Minerals Tablet) 1 tab PO DAILYWM [facility] Last Admin: 07/18/22 08:30 Dose: 1 tab Ondansetron HCl (Ondansetron 4 Mg/2 Ml Vial) 4 mg IVP Q6HR PRN PRN Reason: Nausea / Vomiting Potassium Chloride (Potassium Chloride 20 Meq Tablet) 20 meq PO DAILYWM [facility] Sodium Chloride (Sodium Chloride Flush 0.9% 10 Ml Syringe) 10 ml IVP PRN PRN PRN Reason: NEEDED PER PROVIDER ORDERS Sodium Chloride (Sodium Chloride Flush 0.9% 10 Ml Syringe) 10 ml IVP 0100,0900,1700 [facility] Last Admin: 07/18/22 18:09 Dose: Not Given Apixaban [Eliquis] 5 mg PO BID 07/08/22 Gabapentin [Neurontin] 300 mg PO BID 07/08/22 Binimetinib [Mektovi] 45 mg PO BID 07/09/22 Encorafenib [Braftovi] 450 mg PO DAILY 07/09/22 Fluticasone 44 Mcg [Flovent] 2 puffs INH BID 07/16/22 amLODIPine [Norvasc] 5 mg PO DAILY 07/16/22 Objective - Vital Signs/Intake & Output Reviewed Vital Signs: Yes Vital Signs: Vital Signs x48h Temp Pulse Resp BP Pulse Ox 07/18/22 15:48 36.7 C 92 22 150/81 H 100 07/18/22 12:43 36.6 C 93 20 148/92 H 100 Intake & Output: Intake & Output 07/15/22 07/16/22 07/17/22 07/18/22 23:59 23:59 23:59 23:59 Intake Total 3076.667 4768.333 2880 2213.333 Output Total 25 125 200 550 Balance 3051.667 4643.333 2680 1663.333 - Objective General Appearance: positive: Alert, Other (Very grayish cast to his face skin. I cannot tell up with the light in this room. But no icterus. Calm, fatigued, laying at about 25 degrees.) Eyes Bilateral: positive: PERRL, EOMI ENT: positive: No signs of dehydration Neck: positive: No JVD. negative: Stiff neck Respiratory: positive: No respiratory distress. negative: Wheezes, Rales, Rhonchi Cardiovascular: positive: Regular rate & rhythm Abdomen: positive: Non-tender, No organomegaly, Nml bowel sounds, No distention Skin: positive: Warm, Dry Extremities: positive: Full ROM, No pedal edema Neurologic/Psychiatric: positive: CN's nml (2-12), Motor nml (Except for generalized weakness.), Disoriented to place (Sometimes he forgets he is at the hospital and he thinks he is at another medical facility. Like a doctor's office. And demands to go home.), Disoriented to time - Lab Results Fish Bones: 07/18/22 06:29 07/18/22 04:12 Other Labs: Lab Results x24hrs 07/18/22 07/18/22 07/18/22 Range/Units 06:29 04:12 04:12 WBC 13.0 H (4.8-10.8) x10^3/uL RBC 3.64 L (4.70-6.10) 10^6/uL Hgb 10.6 L (14.0-18.0) g/dL Hct 34.1 L (42.0-52.0) % MCV 93.7 (80.0-94.0) fL MCH 29.1 (27.0-31.0) pg MCHC 31.1 L (32.0-36.0) g/dL RDW 16.4 H (12.0-15.0) % Plt Count 356 (130-450) 10^3/uL MPV 9.3 (7.4-11.4) fL Neut # (Auto) 10.7 H (1.5-6.6) 10^3/uL Lymph # (Auto) 1.0 L (1.5-3.5) 10^3/uL [place] # (Auto) 1.1 H (0.0-1.0) 10^3/uL Eos # (Auto) 0.2 (0.0-0.7) 10^3/uL Baso # (Auto) 0.1 (0.0-0.1) 10^3/uL Absolute Nucleated RBC 0.00 x10^3/uL Nucleated RBC % 0.0 /100WBC VBG pH 7.426 H (7.31-7.41) Ionized Calcium 1.15 (1.15-1.33) mmol/L Sodium 138 (135-145) mmol/L Potassium 3.2 L (3.5-5.0) mmol/L Chloride 109 (101-111) mmol/L Carbon Dioxide 24 (21-32) mmol/L Anion Gap 5.0 L (6-13) BUN 13 (6-20) mg/dL Creatinine 0.9 (0.6-1.2) mg/dL Estimated GFR (MDRD) 80 L (>89) Glucose 117 H (70-100) mg/dL Calcium 8.0 L (8.5-10.3) mg/dL Phosphorus 2.5 (2.5-4.6) mg/dL Magnesium 1.9 (1.7-2.8) mg/dL C-Reactive Protein 4.5 H (0-1.0) mg/dL ABX Reporting Has patient been on IV antibiotics over the past 48 hours?: Yes Sepsis Event Note (H) - Evaluation Current Stage of Sepsis: Sepsis Possible source of Sepsis: positive: Genitourinary - Sepsis Criteria Sepsis Criteria: Recorded Heart Rate greater than 90 bpm, Recorded Respiratory Rate greater than 20, ENTERPRISE ARCHITECT: altered consciousness (unrelated to primary neuro pathology), Metabolic: lactate > 2 mmol/L Assessment/Plan - Problem List (1) E coli bacteremia Impression: He initially had E coli bacteremia grew in blood cx when he had the first fever on 07/07/22. He was then hospitalized here from 07/08 to 07/10 and got iv Cef triaxone, which was transitioned to po Cipro. He never finished the Cipro because he had a fever the next day, 07/11 and came back to ER. Blood cultures from that date were negative. He was monitored in the ER and Gen Surg did consult, since CT scanning of the abdomen on that ER visit demonstrated GB source suspected. So he was sent home from the ER on 07/12 with antibx changed to po Augmentin and Flagyl. He took those for 3 days and came back 07/15 with a fever again and is now admitted again. Two of 2 blood cultures that were drawn in the ER this time 07/15, have turned positive for E coli,He is pansensitive to all antibiotics for E. coli. We started empiric IV cefepime and empiric IV Vanco,Which she received for 2-1/2 days. Vancomycin was discontinued July 17. PSA screen is 0.353 from July 15. Indirect indication that this is not prostatitis. He was transferred from ICU status to [facility] status on July 17. Plan: Continue cefepime. Previous hospitalist was unable to contact infectious disease. I also have not had a return phone call. We will follow his WBC and CRP daily was updated. I let her know that we do have the sensitivities and he is on the correct antibiotics. However the source is still up in the air. He does not have a port. He does not have prostatitis. He does not have a UTI. The only thing we can go on is that he has metastatic liver mets, and a hydrops gallbladder. My suspicion is the source is the gallbladder. But general surgery is not going to operate on this gentleman. They were consulted on July 11. (2) Fall during current hospitalization Impression: Unwitnessed fall July 16. The patient's bed alarm was not on. The telemetry DIGITAL INTERN thought that she noticed an abnormal irregular heart rhythm, poss VT, and informed his nurse. The nurse and MULTIPLE NEEDLE STITCHER went in to see the patient and found him on the floor, right near the bed, head was almost against the wall, both bedrails were up. He told his nurse that he climbed over the bed rail because he had to urinate. He was able to remember that he hit his head approximately on the occiput in the middle. He denied any headache, there was no skin tear, or neurologic deficit when I examined him. He did have a "bump" right at the back of his head but it is nontender. I contacted the and informed her of this event. A c-collar was placed, he underwent STAT CT head and C-spine CT which were neg and c-collar was removed. An order was written to remind nursing to keep the bed alarm on when the patient is alone in the room. Plan: Remain on telemetry to observe for any other arrhythmias, since I suspect that possible VT was just telemetry artifact, from the motion of his body. PT and OT to continue working with him. Due to dementia, he did not remember to call for help before he climbed OOB. Will ask that SW speak to the to assure he will have constant supervision if DCh to home is under 's care. (3) Yeast UTI Impression: He had an abnormal urinalysis at admission, culture was indicated. 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 This urine culture has not grown the E. coli which is causing the bacteremia current. PSA is very low. So I do not suspect prostatitis Plan: We will continue with IV cefepime (4) Metastatic melanoma Conclusion/Plan: He gets oral Braftovi and Mektovi for the treatment of his metastatic melanoma. He is currently being managed by Dr. Arianna Reeder at [facility]. His immunotherapy has been on hold since the first fever earlier this month (07/07), since his fever and infection has not cleared Hospitalist spoke to his Oncol, Dr Arianna Reeder at [facility] 07/17, about this hospitalization with recurrent bacteremia ([phone]) and she said that this time iv antibx should be continued longer. I said unfortunately we do not have a source therefore we do not know the exact duration for treatment and Hospitalist has been unable to reach infectious disease. (5) Pacemaker Conclusion/Plan: As per history. Plan: Because he has a history of A-fib and presented tachycardic, he remains on telemetry Echo was ordered for today. However the tach has not had a chance to get that done. (6) Hypokalemia Conclusion/Plan: Possibly from poor intake during his AMS.Yesterday's potassium was 3.8. Today it is 3.2. 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 (8) AMS (altered mental status) Conclusion/Plan: Resolved. He has presented several times with somnolence and confusion, when he has had a fever and infection. By the time he was in his ICU bed on 07/15 from the ER, he was sleepy but awoke to converse normally and was alert and oriented x3. Today he is calm, just tired. Does not want to be here. feels that he has baseline confusion. Plan: Blood pressure is no longer low. 146/81, 148/92, 150/81 today. Transfer to [facility] status. (9) Sepsis Impression: Resolved He had criteria for sepsis including tachycardia, elevated Lactic acid level, fever, tachypnea, altered mental status and abnormal urinalysis He was started on IV fluids and empiric antibx, with a presume urinary source. We started empiric IV cefepime and empiric IV Vanco, which he has now received for 2.5 days. Plan: On cefepime for E. coli bacteremia. Vancomycin has been stopped.
[2022-07-18] MEDS: ACETAMINOPHEN 1,000 MG/100 ML 1,000 MG/100 ML BAG IV PRN (21:08)
[2022-07-19] MEDS: CEFEPIME 2 GM in SODIUM CHLORIDE 0.9% MINIBAG 100 ML IV SCH ×2 (03:53→16:01)
[2022-07-19] MEDS: SODIUM CHLORIDE FLUSH 0.9% 10 ML SYRINGE IVP SCH ×3 (03:59→15:57)
[2022-07-19] MEDS: POTASSIUM CHLORIDE 20 MEQ TABLET PO SCH (09:14)
[2022-07-19] MEDS: MULTIVITAMIN W/MINERALS TABLET PO SCH (09:15)
[2022-07-19 09:21] LABS: BASOPHILS # (AUTO) 0.1 10^3/uL (0.0-0.1); BASOPHILS % (AUTO) 0.7 %; EOSINOPHILS # (AUTO) 0.1 10^3/uL (0.0-0.7); EOSINOPHILS % (AUTO) 0.8 %; HCT - HEMATOCRIT 32.9 % (42.0-52.0); LYMPHOCYTES % (AUTO) 6.8 %; MEAN CORPUSCULAR HEMOGLOBIN 29.4 pg (27.0-31.0); MEAN CORPUSCULAR HGB CONC 30.4 g/dL (32.0-36.0); MEAN CORPUSCULAR VOLUME 96.8 fL (80.0-94.0); MEAN PLATELET VOLUME 9.5 fL (7.4-11.4); MONOCYTES # (AUTO) 0.8 10^3/uL (0.0-1.0); MONOCYTES % (AUTO) 5.9 %; NEUTROPHILS % (AUTO) 84.8 %; PLT - PLATELET COUNT 343 10^3/uL (130-450); RED CELL DISTRIBUTION WIDTH 16.5 % (12.0-15.0); WHITE BLOOD COUNT 14.2 x10^3/uL (4.8-10.8)
[2022-07-19 09:37] LABS: CALCIUM 8.3 mg/dL (8.5-10.3); CREATININE 0.9 mg/dL (0.6-1.2); POTASSIUM 3.6 mmol/L (3.5-5.0)
[2022-07-19] MEDS: DEXTROSE 5%-0.9% NACL 1,000 ML IV SCH ×2 (13:54→15:56)
--- NOTE | 2022-07-19 15:21 | ANESTHESIA PROCEDURE NOTE ---
Anesth Central Line Template - Central Line Central Line Preparation: Consent Obtained, Time out completed, Sterile prep and drape Central line location: Right Basilic Central line type: PICC Single Lumen Central line catheter tip site resides: Superior vena cava (SVC) Central line aftercare: Secured, Placement confirmed, No complications, Bundle checklist complete, Pt tolerated well
--- NOTE | 2022-07-19 16:07 | XRAY Report ---
PROCEDURE: Chest for Line Placement INDICATIONS: PICC line placement TECHNIQUE: One view of the chest was acquired. COMPARISON: 07/15/2022 FINDINGS: Surgical changes and devices: Tip of the right PICC projects approximately 1.5 cm below the superior cavoatrial junction. Left chest pacemaker. Lungs and pleura: Hazy opacities present at both mid and lower lungs. Bilateral interstitial opaciti es also present. Pulmonary vasculature appears congested. Probable bilateral layering pleural effusio ns. No pneumothorax visualized. Mediastinum: Cardiac silhouette is at the upper limits of normal in size. Bones and chest wall: No suspicious bony lesions. Overlying soft tissues appear unremarkable. IMPRESSION: 1. Tip of the right PICC projects approximately 1.5 cm below the superior cavoatrial junction. 2. Findings compatible with at least mild-moderate fluid overload/CHF. Reviewed by: Johnathan Lane MD on 07/19/2022 4:06 PM PDT Approved by: Johnathan Lane MD on 07/19/2022 4:06 PM PDT Station ID: [id number]
--- NOTE | 2022-07-19 18:18 | PROVIDER PROGRESS NOTE ---
Subjective - Prog Note Date Prog Note Date: 07/19/22 Prog Note Time: 18:15 - Subjective Subjective: No changes. No events overnight. Patient himself says that everything is fine. He is fretful, and keeps on asking when he can go home. He denies any pain. He just tells me that he is always cold here. Current Medications - Current Medications Current Medications: Active Medications Apixaban (Apixaban 5 Mg Tablet) 5 mg PO BID [facility] Gabapentin (Gabapentin 300 Mg Capsule) 300 mg PO BID [facility] Acetaminophen (Acetaminophen) 1,000 mg in 100 mls @ 400 mls/hr IV Q6HR PRN PRN Reason: Pain or Fever > 38C (100.4F) Last Infusion: 07/18/22 21:25 Dose: Infused Cefepime HCl 2 gm/ Sodium (Chloride) 100 mls @ 200 mls/hr IV Q12H [facility] Last Admin: 07/19/22 16:01 Dose: 200 mls/hr Dextrose/Sodium Chloride (D5ns) 1,000 mls @ 70 mls/hr IV .[id number] [facility] Last Admin: 07/19/22 15:56 Dose: 70 mls/hr Multi-Ingredient Ointment (Zinc Oxide 20% Oint 30 Gm Tube) 1 applic TOP PRN PRN PRN Reason: Skin Care Last Admin: 07/18/22 04:53 Dose: 1 applic Multivitamins/Minerals (Multivitamin W/Minerals Tablet) 1 tab PO DAILYWM [facility] Last Admin: 07/19/22 09:15 Dose: 1 tab Ondansetron HCl (Ondansetron 4 Mg/2 Ml Vial) 4 mg IVP Q6HR PRN PRN Reason: Nausea / Vomiting Potassium Chloride (Potassium Chloride 20 Meq Tablet) 20 meq PO DAILYWM [facility] Last Admin: 07/19/22 09:14 Dose: 20 meq Sodium Chloride (Sodium Chloride Flush 0.9% 10 Ml Syringe) 10 ml IVP PRN PRN PRN Reason: NEEDED PER PROVIDER ORDERS Sodium Chloride (Sodium Chloride Flush 0.9% 10 Ml Syringe) 10 ml IVP 0100,0900,1700 [facility] Last Admin: 07/19/22 15:57 Dose: 10 ml Apixaban [Eliquis] 5 mg PO BID 07/08/22 Gabapentin [Neurontin] 300 mg PO BID 07/08/22 Binimetinib [Mektovi] 45 mg PO BID 07/09/22 Encorafenib [Braftovi] 450 mg PO DAILY 07/09/22 Fluticasone 44 Mcg [Flovent] 2 puffs INH BID 07/16/22 amLODIPine [Norvasc] 5 mg PO DAILY 07/16/22 Objective - Vital Signs/Intake & Output Reviewed Vital Signs: Yes Vital Signs: Vital Signs x48h Temp Pulse Resp BP Pulse Ox 07/19/22 17:00 37.5 C 87 23 140/71 H 99 07/19/22 12:15 36.6 C 90 20 118/83 H 98 07/19/22 11:30 90 23 141/91 H 94 Intake & Output: Intake & Output 07/16/22 07/17/22 07/18/22 07/19/22 23:59 23:59 23:59 23:59 Intake Total 4768.333 2880 2752.167 1450.000 Output Total 125 200 550 250 Balance 4643.333 2680 2202.167 1200.000 - Objective General Appearance: positive: No acute distress, Alert, Other (Laying in bed. Multiple blankets brought up to his chin. He has gotten up twice today. Sat in a chair, walked in the room. Worked with physical therapy) Eyes Bilateral: positive: PERRL, EOMI ENT: positive: No signs of dehydration Neck: positive: No JVD. negative: Stiff neck Respiratory: positive: No respiratory distress. negative: Wheezes, Rales, Rhonchi Cardiovascular: positive: Regular rate & rhythm, Systolic murmur Abdomen: positive: Non-tender, No organomegaly, Nml bowel sounds, No distention Skin: positive: Warm, Dry Extremities: positive: Full ROM, No pedal edema Neurologic/Psychiatric: positive: CN's nml (2-12), Motor nml, Disoriented to place, Disoriented to time - Lab Results Fish Bones: 07/19/22 09:15 07/19/22 09:15 Other Labs: Lab Results x24hrs 07/19/22 07/19/22 Range/Units 09:15 09:15 WBC 14.2 H (4.8-10.8) x10^3/uL RBC 3.40 L (4.70-6.10) 10^6/uL Hgb 10.0 L (14.0-18.0) g/dL Hct 32.9 L (42.0-52.0) % MCV 96.8 H (80.0-94.0) fL MCH 29.4 (27.0-31.0) pg MCHC 30.4 L (32.0-36.0) g/dL RDW 16.5 H (12.0-15.0) % Plt Count 343 (130-450) 10^3/uL MPV 9.5 (7.4-11.4) fL Neut # (Auto) 12.0 H (1.5-6.6) 10^3/uL Lymph # (Auto) 1.0 L (1.5-3.5) 10^3/uL [place] # (Auto) 0.8 (0.0-1.0) 10^3/uL Eos # (Auto) 0.1 (0.0-0.7) 10^3/uL Baso # (Auto) 0.1 (0.0-0.1) 10^3/uL Absolute Nucleated RBC 0.00 x10^3/uL Nucleated RBC % 0.0 /100WBC Sodium 141 (135-145) mmol/L Potassium 3.6 (3.5-5.0) mmol/L Chloride 109 (101-111) mmol/L Carbon Dioxide 26 (21-32) mmol/L Anion Gap 6.0 (6-13) BUN 11 (6-20) mg/dL Creatinine 0.9 (0.6-1.2) mg/dL Estimated GFR (MDRD) 80 L (>89) Glucose 106 H (70-100) mg/dL Calcium 8.3 L (8.5-10.3) mg/dL C-Reactive Protein 6.0 H (0-1.0) mg/dL ABX Reporting Has patient been on IV antibiotics over the past 48 hours?: Yes Sepsis Event Note (H) - Evaluation Current Stage of Sepsis: Sepsis Possible source of Sepsis: positive: Genitourinary - Sepsis Criteria Sepsis Criteria: Recorded Heart Rate greater than 90 bpm, Recorded Respiratory Rate greater than 20, AIRCRAFT INSPECTION RECORD CLERK: altered consciousness (unrelated to primary neuro pathology), Metabolic: lactate > 2 mmol/L Assessment/Plan - Problem List (1) E coli bacteremia Impression: He initially had E coli bacteremia grew in blood cx when he had the first fever on 07/07/22. He was then hospitalized here from 07/08 to 07/10 and got iv Ceftriaxone, which was transitioned to po Cipro. He never finished the Cipro because he had a fever the next day, 07/11 and came back to ER. Blood cultures from that date were negative. He was monitored in the ER and Gen Surg did consult, since CT scanning of the abdomen on that ER visit demonstrated GB source suspected. So he was sent home from the ER on 07/12 with antibx changed to po Augmentin and Flagyl. He took those for 3 days and came back 07/15 with a fever again and is now admitted again. Two of 2 blood cultures that were drawn in the ER this time 07/15, have turned positive for E coli, He is pansensitive to all antibiotics for E. coli. We started empiric IV cefepime and empiric IV Vanco,Which he received for 2-1/2 days. Vancomycin was discontinued July 17. PSA screen is 0.353 from July 15. Indirect indication that this is not prostatitis. He was transferred from ICU status to [facility] status on July 17. He has had an abdomen pelvis CT here on July 15. That was compared to July 11, and June 13. He has moderate bilateral pleural effusions. The liver is abnormal with multiple poorly defined nodules that are attributed to metastatic melanoma. Most of these are less than 1 cm but the right posterior lobe lesion is 5.5 cm. Multiple subcentimeter low-density nodules in the spleen. Gallbladder is largely collapsed, biliary system is nondilated. Kidneys normal without hydronephrosis. Bowel loops are normal. No free air. Moderate ascites is seen. Diverticulosis without diverticulitis is seen. No retroperitoneal or mesenteric adenopathy. Bladder wall thickness is normal. Radiology is suggesting that maybe they could be correlated with liver abscesses and not metastatic disease. Plan: Continue cefepime. Previous hospitalist was unable to contact infectious disease. I called [facility] railway track plant operator. I had infectious disease on-call paged. I called [phone]. Dr. Nelson did call me back but she was just starting rounds. She took my number and said that she would have somebody else call me after she was done with rounds. I shared this with the patient's who is at the bedside. She is very anxious that he start his combined immune modulating therapy. We will follow his WBC and CRP daily. We are hoping to get some guidance from infectious disease as to how long this gentleman is going to require IV antibiotics. And what the possible source could be if we have not found it as of yet. (2) Fall during current hospitalization Impression: Unwitnessed fall July 16. The patient's bed alarm was not on. The telemetry BOILERHOUSE MECHANIC thought that she noticed an abnormal irregular heart rhythm, poss VT, and informed his nurse. The nurse and ROCK DUST SPRAYER went in to see the patient and found him on the floor, right near the bed, head was almost against the wall, both bedrails were up. He told his nurse that he climbed over the bed rail because he had to urinate. He was able to remember that he hit his head approximately on the occiput in the middle. He denied any headache, there was no skin tear, or neurologic deficit when I examined him. He did have a "bump" right at the back of his head but it is nontender. I contacted the and informed her of this event. A c-collar was placed, he underwent STAT CT head and C-spine CT which were neg and c-collar was removed. An order was written to remind nursing to keep the bed alarm on when the patient is alone in the room. Plan: Remain on telemetry to observe for any other arrhythmias, since I suspect that possible VT was just telemetry artifact, from the motion of his body. PT and OT to continue working with him. Due to dementia, he did not remember to call for help before he climbed OOB. Will ask that SW speak to the to assure he will have constant supervision if DCh to home is under 's care. (3) Yeast UTI Impression: He had an abnormal urinalysis at admission, culture was indicated. 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 This urine culture has not grown the E. coli which is causing the bacteremia current. PSA is very low. So I do not suspect prostatitis Plan: We will continue with IV cefepime (4) Metastatic melanoma Conclusion/Plan: He gets oral Braftovi and Mektovi for the treatment of his metastatic melanoma. He is currently being managed by Dr. Arianna Reeder at [facility]. His immunotherapy has been on hold since the first fever earlier this month (07/07), since his fever and infection has not cleared Hospitalist spoke to his Oncol, Dr Arianna Reeder at [facility] 07/17, about this hospitalization with recurrent bacteremia ([phone]) and she said that this time iv antibx should be continued longer. Unfortunately, we do not have a source therefore we do not know the exact duration for treatment and So far infectious disease has not been able to give us some insight. Hopefully Dr. Nelson will give us a return phone call. (5) Pacemaker Conclusion/Plan: As per history. Plan: Because he has a history of A-fib and presented tachycardic, he remains on telemetry Echo was ordered for today. However the tach has not had a chance to get that d one. (6) Hypokalemia Conclusion/Plan: Possibly from poor intake during his AMS. Potassium was low again on July 18. Supplemented with potassium riders. Today's potassium is normal. 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 (8) AMS (altered mental status) Conclusion/Plan: Resolved. He has presented several times with somnolence and confusion, when he has had a fever and infection. By the time he was in his ICU bed on 07/15 from the ER, he was sleepy but awoke to converse normally and was alert and oriented x3. Today he is calm, just tired. Does not want to be here. feels that he has baseline confusion. Transferred to [facility] on July 18. Today's blood pressure is 141/91, 118/83, 140/71. (9) Sepsis resolved. Impression: Resolved He had criteria for sepsis including tachycardia, elevated Lactic acid level, fever, tachypnea, altered mental status and abnormal urinalysis He was started on IV fluids and empiric antibx, with a presume urinary source. We started empiric IV cefepime and empiric IV Vanco, which he has now received for 2.5 days. Plan: On cefepime for E. coli bacteremia. Vancomycin has been stopped.
[2022-07-19] MEDS ORDERED: LORazepam 2 MG/ML VIAL IVP STA (19:43)
[2022-07-19] MEDS ORDERED: LORazepam 2 MG/ML VIAL IVP PRN (19:44)
[2022-07-20] MEDS: GABAPENTIN 300 MG CAPSULE PO SCH ×3 (00:29→20:07)
[2022-07-20] MEDS: ZINC OXIDE 20% OINT 30 GM TUBE TOP PRN (02:50)
[2022-07-20] MEDS: SODIUM CHLORIDE FLUSH 0.9% 10 ML SYRINGE IVP SCH ×3 (03:01→16:05)
[2022-07-20] MEDS: CEFEPIME 2 GM in SODIUM CHLORIDE 0.9% MINIBAG 100 ML IV SCH (03:59)
[2022-07-20] MEDS: DEXTROSE 5%-0.9% NACL 1,000 ML IV SCH (07:51)
[2022-07-20] MEDS: POTASSIUM CHLORIDE 20 MEQ TABLET PO SCH (08:01)
[2022-07-20] MEDS: MULTIVITAMIN W/MINERALS TABLET PO SCH (08:02)
[2022-07-20] MEDS: APIXABAN 5 MG TABLET PO SCH ×2 (08:04→20:07)
[2022-07-20 14:41] LABS: BASOPHILS # (AUTO) 0.1 10^3/uL (0.0-0.1); BASOPHILS % (AUTO) 0.8 %; EOSINOPHILS # (AUTO) 0.2 10^3/uL (0.0-0.7); EOSINOPHILS % (AUTO) 1.5 %; HCT - HEMATOCRIT 34.7 % (42.0-52.0); HGB - HEMOGLOBIN 10.7 g/dL (14.0-18.0); LYMPHOCYTES # (AUTO) 0.8 10^3/uL (1.5-3.5); LYMPHOCYTES % (AUTO) 6.1 %; MEAN CORPUSCULAR HEMOGLOBIN 29.4 pg (27.0-31.0); MEAN CORPUSCULAR HGB CONC 30.8 g/dL (32.0-36.0); MEAN CORPUSCULAR VOLUME 95.3 fL (80.0-94.0); MEAN PLATELET VOLUME 9.2 fL (7.4-11.4); MONOCYTES # (AUTO) 0.9 10^3/uL (0.0-1.0); MONOCYTES % (AUTO) 6.9 %; NEUTROPHILS # (AUTO) 10.6 10^3/uL (1.5-6.6); NEUTROPHILS % (AUTO) 83.2 %; PLT - PLATELET COUNT 342 10^3/uL (130-450); RED BLOOD COUNT 3.64 10^6/uL (4.70-6.10); RED CELL DISTRIBUTION WIDTH 16.8 % (12.0-15.0); WHITE BLOOD COUNT 12.7 x10^3/uL (4.8-10.8)
[2022-07-20 14:48] LABS: BUN - BLOOD UREA NITROGEN 13 mg/dL (6-20); CALCIUM 8.1 mg/dL (8.5-10.3); CARBON DIOXIDE - CO2 28 mmol/L (21-32); CHLORIDE 111 mmol/L (101-111); CREATININE 0.9 mg/dL (0.6-1.2); GFR - MDRD 80 (>89); GLUCOSE 108 mg/dL (70-100); IONIZED CALCIUM IF INDICATED YES; POTASSIUM 3.4 mmol/L (3.5-5.0); SODIUM 143 mmol/L (135-145)
[2022-07-20 14:55] LABS: CALCIUM, IONIZED 1.14 mmol/L (1.15-1.33); VBG PH 7.418 (7.31-7.41)
[2022-07-20] MEDS ORDERED: iohexoL-300 100 ML VIAL ONE (15:27)
--- NOTE | 2022-07-20 16:40 | PROVIDER PROGRESS NOTE ---
Subjective - Prog Note Date Prog Note Date: 07/20/22 Prog Note Time: 16:35 - Subjective Subjective: He was very agitated last night. Would not stay in his bed. This started around 6:37 PM last night after his left. Even with a one-to-one supervision it was very difficult to keep him in bed safely. He is already fallen once while here. Evening nurse asked if I could give him some Ativan. I gave him 1 mg of Ativan, and then he received another half a milligram at 3 in the morning. He was very sleepy this morning. Has continued to be sleepy, not eating well because he is so sleepy. Not working well with physical therapy because he is sleepy. So I have stopped the Ativan. I had called [facility] infectious disease on-call yesterday. She was just getting ready to start rounds at around 5 PM and stated that she would call somebody else to have them call me. Dr. Rachel Coronado who [facility] called me. We discussed the case at length. We went over his initial blood cultures, his CAT scans, the sensitivities of his E. coli, etc. I shared with her that I think he has either a GI or source that we have not found. All of his CAT scans have been noncontrast. Current Medications - Current Medications Current Medications: Active Medications Apixaban (Apixaban 5 Mg Tablet) 5 mg PO BID [facility] Last Admin: 07/20/22 08:04 Dose: 5 mg Gabapentin (Gabapentin 300 Mg Capsule) 300 mg PO BID [facility] Last Admin: 07/20/22 08:01 Dose: 300 mg Acetaminophen (Acetaminophen) 1,000 mg in 100 mls @ 400 mls/hr IV Q6HR PRN PRN Reason: Pain or Fever > 38C (100.4F) Last Infusion: 07/18/22 21:25 Dose: Infused Dextrose/Sodium Chloride (D5ns) 1,000 mls @ 70 mls/hr IV .[id number] [facility] Last Admin: 07/20/22 07:51 Dose: 70 mls/hr Ceftriaxone Sodium 1 gm/ (Sodium Chloride) 100 mls @ 200 mls/hr IV DAILY [facility] Multi-Ingredient Ointment (Zinc Oxide 20% Oint 30 Gm Tube) 1 applic TOP PRN PRN PRN Reason: Skin Care Last Admin: 07/20/22 02:50 Dose: 1 applic Multivitamins/Minerals (Multivitamin W/Minerals Tablet) 1 tab PO DAILYWM [facility] Last Admin: 07/20/22 08:02 Dose: 1 tab Ondansetron HCl (Ondansetron 4 Mg/2 Ml Vial) 4 mg IVP Q6HR PRN PRN Reason: Nausea / Vomiting Potassium Chloride (Potassium Chloride 20 Meq Tablet) 20 meq PO DAILYWM [facility] Last Admin: 07/20/22 08:01 Dose: 20 meq Sodium Chloride (Sodium Chloride Flush 0.9% 10 Ml Syringe) 10 ml IVP PRN PRN PRN Reason: NEEDED PER PROVIDER ORDERS Sodium Chloride (Sodium Chloride Flush 0.9% 10 Ml Syringe) 10 ml IVP 0100,0900,1700 [facility] Last Admin: 07/20/22 16:05 Dose: Not Given Apixaban [Eliquis] 5 mg PO BID 07/08/22 Gabapentin [Neurontin] 300 mg PO BID 07/08/22 Binimetinib [Mektovi] 45 mg PO BID 07/09/22 Encorafenib [Braftovi] 450 mg PO DAILY 07/09/22 Fluticasone 44 Mcg [Flovent] 2 puffs INH BID 07/16/22 amLODIPine [Norvasc] 5 mg PO DAILY 07/16/22 Objective - Vital Signs/Intake & Output Reviewed Vital Signs: Yes Vital Signs: Vital Signs x48h Pulse Resp BP Pulse Ox 07/20/22 13:00 94 22 146/73 H 99 Intake & Output: Intake & Output 07/17/22 07/18/22 07/19/22 07/20/22 23:59 23:59 23:59 23:59 Intake Total 2880 2752.167 2064.833 877.000 Output Total 200 550 250 100 Balance 2680 2202.167 1814.833 777.000 - Objective General Appearance: positive: Other (Sleepy, speech is less lucid, psychomotor slowing) Eyes Bilateral: positive: PERRL, EOMI ENT: positive: No signs of dehydration Neck: positive: No JVD. negative: Stiff neck Respiratory: positive: No respiratory distress. negative: Wheezes, Rales, Rhonchi Cardiovascular: positive: Regular rate & rhythm Abdomen: positive: Non-tender, No organomegaly, Nml bowel sounds, No distention Skin: positive: Warm, Dry Extremities: positive: Full ROM, No pedal edema Neurologic/Psychiatric: positive: CN's nml (2-12), Motor nml, Disoriented to person, Disoriented to place, Disoriented to time, Slurred/abnml speech - Lab Results Fish Bones: 07/20/22 14:35 07/20/22 14:35 Other Labs: Lab Results x24hrs 07/20/22 07/20/22 07/20/22 Range/Units 14:35 14:35 14:35 WBC 12.7 H (4.8-10.8) x10^3/uL RBC 3.64 L (4.70-6.10) 10^6/uL Hgb 10.7 L (14.0-18.0) g/dL Hct 34.7 L (42.0-52.0) % MCV 95.3 H (80.0-94.0) fL MCH 29.4 (27.0-31.0) pg MCHC 30.8 L (32.0-36.0) g/dL RDW 16.8 H (12.0-15.0) % Plt Count 342 (130-450) 10^3/uL MPV 9.2 (7.4-11.4) fL Neut # (Auto) 10.6 H (1.5-6.6) 10^3/uL Lymph # (Auto) 0.8 L (1.5-3.5) 10^3/uL [place] # (Auto) 0.9 (0.0-1.0) 10^3/uL Eos # (Auto) 0.2 (0.0-0.7) 10^3/uL Baso # (Auto) 0.1 (0.0-0.1) 10^3/uL Absolute Nucleated RBC 0.00 x10^3/uL Nucleated RBC % 0.0 /100WBC VBG pH 7.418 H (7.31-7.41) Ionized Calcium 1.14 L YES (1.15-1.33) mmol/L Sodium 143 (135-145) mmol/L Potassium 3.4 L (3.5-5.0) mmol/L Chloride 111 (101-111) mmol/L Carbon Dioxide 28 (21-32) mmol/L Anion Gap 4.0 L (6-13) BUN 13 (6-20) mg/dL Creatinine 0.9 (0.6-1.2) mg/dL Estimated GFR (MDRD) 80 L (>89) Glucose 108 H (70-100) mg/dL Calcium 8.1 L (8.5-10.3) mg/dL C-Reactive Protein (0-1.0) mg/dL 07/20/22 Range/Units 04:32 WBC (4.8-10.8) x10^3/uL RBC (4.70-6.10) 10^6/uL Hgb (14.0-18.0) g/dL Hct (42.0-52.0) % MCV (80.0-94.0) fL MCH (27.0-31.0) pg MCHC (32.0-36.0) g/dL RDW (12.0-15.0) % Plt Count (130-450) 10^3/uL MPV (7.4-11.4) fL Neut # (Auto) (1.5-6.6) 10^3/uL Lymph # (Auto) (1.5-3.5) 10^3/uL [place] # (Auto) (0.0-1.0) 10^3/uL Eos # (Auto) (0.0-0.7) 10^3/uL Baso # (Auto) (0.0-0.1) 10^3/uL Absolute Nucleated RBC x10^3/uL Nucleated RBC % /100WBC VBG pH (7.31-7.41) Ionized Calcium (1.15-1.33) mmol/L Sodium (135-145) mmol/L Potassium (3.5-5.0) mmol/L Chloride (101-111) mmol/L Carbon Dioxide (21-32) mmol/L Anion Gap (6-13) BUN (6-20) mg/dL Creatinine (0.6-1.2) mg/dL Estimated GFR (MDRD) (>89) Glucose (70-100) mg/dL Calcium (8.5-10.3) mg/dL C-Reactive Protein 6.2 H (0-1.0) mg/dL ABX Reporting Has patient been on IV antibiotics over the past 48 hours?: Yes Sepsis Event Note (H) - Evaluation Current Stage of Sepsis: Sepsis Possible source of Sepsis: positive: Genitourinary - Sepsis Criteria Sepsis Criteria: Recorded Heart Rate greater than 90 bpm, Recorded Respiratory Rate greater than 20, IC DESIGNER CUSTOM: altered consciousness (unrelated to primary neuro pathology), Metabolic: lactate > 2 mmol/L Assessment/Plan - Problem List (1) E coli bacteremia Impression: 07/07/22: In ER for confusion and fever. Sent home w nml labs and good response to IVF. 07/08: ER asked him to return to ER when blood cultures grew out E coli bacteremia He was then hospitalized here from 07/08 to 07/10 and got iv Ceftriaxone, which was transitioned to po Cipro. Repeat blood cultures were negative while on ceftriaxone. 07/11: Fever on Cipro so he returned to the ER. Blood cultures from that date were negative. He was monitored in the ER and Gen Surg did consult, since CT scanning of the abdomen on that ER visit demonstrated GB source suspected. So he was sent home from the ER on 07/12 with antibx changed to po Augmentin and Flagyl. 07/15/22: He took Augmentin and Flagyl but came back 07/15 with a fever at home again and is now admitted again. In the ER and for the rest of his stay he has not had fevers. Tachycardia resolved by 07/16. Two of 2 blood cultures that were drawn in the ER 07/15 have turned positive for E coli, He is pansensitive to all antibiotics for E. coli. We started empiric IV cefepime and empiric IV Vanco, which he received for 2-1/2 days. Vancomycin was discontinued July 17. PSA screen is 0.353 from July 15. Indirect indication that this is not prostatitis. He was transferred from ICU status to [facility] status on July 17. He has had an abdomen pelvis CT here on July 15. That was compared to July 11, and June 13. He has moderate bilateral pleural effusions. The liver is abnormal with multiple poorly defined nodules that are attributed to metastatic melanoma. Most of these are less than 1 cm but the right posterior lobe lesion is 5.5 cm. Multiple subcentimeter low-density nodules in the spleen. Gallbladder is largely collapsed, biliary system is nondilated. Kidneys normal without hydronephrosis. Bowel loops are normal. No free air. Moderate ascites is seen. Diverticulosis without diverticulitis is seen. No retroperitoneal or mesenteric adenopathy. Bladder wall thickness is normal. Radiology is suggesting that maybe they could be correlated with liver abscesses and not metastatic disease. In speaking to [facility] we discussed the possibility that his liver nodules, especially the 5 cm nodule, could be an abscess. There are no fluid or air in these nodules but these are all noncontrast CTs. Essentially I am looking for a GI or source for this man's E. coli bacteremia. Plan: Change cefepime to Rocephin 1 g. He does not need to be on such a broad- spectrum and we can narrow it down. After speaking to infectious disease, I will order a CT of the abdomen and pelvis with contrast. Specifically I am looking to see if there is abscesses in his liver. I have asked that all of his CT's be pushed to for the ID attending to review them with their radiologist looking for cause of infectious we may have missed. Repeat blood cultures to verify response to current antibiotic regimen Overall, 70 minutes of time was spent in phone calls, discussion with radiology, discussion with ID, examining the patient and adjusting therapy. (2) Fall during current hospitalization Impression: Unwitnessed fall July 16. The patient's bed alarm was not on. The telemetry INSULATION EXTRUDER OPERATOR thought that she noticed an abnormal irregular heart rhythm, poss VT, and informed his nurse. The nurse and CHARGING PLUG PLACER went in to see the patient and found him on the floor, right near the bed, head was almost against the wall, both bedrails were up. He told his nurse that he climbed over the bed rail because he had to urinate. He was able to remember that he hit his head approximately on th e occiput in the middle. He denied any headache, there was no skin tear, or neurologic deficit when I examined him. He did have a "bump" right at the back of his head but it is nontender. I contacted the and informed her of this event. A c-collar was placed, he underwent STAT CT head and C-spine CT which were neg and c-collar was removed. An order was written to remind nursing to keep the bed alarm on when the patient is alone in the room. He has remained on telemetry because of the abnormal irregular heart rhythm that was seen associated with this fall. But after reviewing that strip, hospitalist feels that it is telemetry artifact from the motion of his body. Plan: PT and OT to continue working with him. Today was a difficult day because he is so sleepy from the residual of the Ativan given to him last night. Due to dementia, he did not remember to call for help before he climbed OOB. Ativan was discontinued. continues to reiterate that she can take care of him when he gets home. She has no intention of having him do rehab in a SNF. Or get care in a SNF. She also shares with me that she does not want her to go to a intermediate facility because he will not be able to get his immunomodulating regimen for his melanoma. She has already been told that if he goes to senior care, they will not receive payment for those pills. So she does not want him to go. (3) Yeast UTI Impression: He had an abnormal urinalysis at admission, culture was indicated. 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 This urine culture has not grown the E. coli which is causing the bacteremia current. PSA is very low. So I do not suspect prostatitis Plan: Cefepime was changed to Rocephin today (4) Metastatic melanoma Conclusion/Plan: He gets oral Braftovi and Mektovi for the treatment of his metastatic melanoma. He is currently being managed by Dr. Arianna Reeder at [facility]. His immunotherapy has been on hold since the first fever earlier this month (06/21 7), since his fever and infection has not cleared Hospitalist spoke to his Oncol, Dr Arianna Reeder at [facility] 07/17, about this hospitalization with recurrent bacteremia ([phone]) and she said that this time iv antibx should be continued longer. Unfortunately, we do not have a source therefore we do not know the exact duration for treatment. Most gram- negative bacteremia gets up to 2 weeks of therapy depending on the source. I was able to successfully connect with infectious disease today, specifically Dr. Coronado. She will be reviewing his cultures, CAT scans, and let me know what she thinks. (5) Pacemaker Conclusion/Plan: As per history. Plan: Because he has a history of A-fib and presented tachycardic, he remains on telemetry Echocardiogram was ordered. The order was completed in [facility] today. That leads me to believe that the echocardiogram tech has done an echo but has not had a chance to be uploaded into the system since there is no report available. I will review that report when it becomes available. (6) Hypokalemia Conclusion/Plan: Possibly from poor intake during his AMS. 3.4 today. He is receiving oral supplementation. (7) Dementia Conclusion/Plan: As per history he has mild dementia, the makes most of his decisions He is on no meds for his dementia Plan: Given the fall (see #2), he will need to have constant supervision going forwa rd. (8) AMS (altered mental status) Conclusion/Plan: Resolved. He has presented several times with somnolence and confusion, when he has had a fever and infection. By the time he was in his ICU bed on 07/15 from the ER, he was sleepy but awoke to converse normally and was alert and oriented x3. Since that initial somnolence, he has been awake, alert. But fretful. Very forgetful. Does not want to be here. Behavior deteriorates noticeably when his leaves for the evening. And then he sounds down. Today we have noticed that he did not respond well to the Ativan from last night. As such the Ativan will be discontinued. (9) Sepsis resolved. Impression: Resolved He had criteria for sepsis including tachycardia, elevated Lactic acid level, fever, tachypnea, altered mental status and abnormal urinalysis He was started on IV fluids and empiric antibx, with a presume urinary source. We started empiric IV cefepime and empiric IV Vanco, which he has now received for 2.5 days. Plan: Was on cefepime for E. coli bacteremia and that will be stopped today. Vancomycin has been stopped. Rocephin will be started instead.
--- NOTE | 2022-07-20 16:45 | CT Report ---
PROCEDURE: ABDOMEN/PELVIS W INDICATIONS: fever, e coli bactermeia, Stage IV melanoma. Concern for liver abscess CONTRAST: : 100ml omni 300 TECHNIQUE: After the administration of intravenous contrast, 5 mm thick sections acquired from the diaphragms to the symphysis. 5 mm thick coronal and sagittal reformats were acquired. For radiation dose reducti on, the following was used: automated exposure control, adjustment of mA and/or kV according to dorothy ent size. COMPARISON: CT abdomen pelvis 07/15/2022, 07/11/2022 FINDINGS: Lung bases : At least moderate bilateral pleural effusions partially imaged Liver: Innumerable small hypodense lesions of varying sizes redemonstrated not substantially changed, no definite drainable collection identified. Gallbladder and biliary tree: Unremarkable. No biliary dilation. Spleen: Innumerable small hypodense lesions redemonstrated not substantially changed, no definite ann inable collection identified. Pancreas: Unremarkable. Adrenals: Unremarkable. Kidneys: No hydronephrosis Bowel and peritoneum: No small bowel obstruction. Colonic diverticulosis without definite evidence of acute diverticulitis. Small amount of abdominal and pelvic free fluid, not significantly changed Vessels: Unremarkable. PELVIS Reproductive organs: Unremarkable. Bladder and ureters: Unremarkable. Bones: Multilevel degenerative change of the visualized spine. Anasarca is present IMPRESSION: No significant short interval change. Innumerable liver lesions persist, similar to before, could rep resent metastatic disease, microabscesses are not excludable. No definite drainable collection identi fied. Other findings are present as above. Reviewed by: Johnathan Lane MD on 07/20/2022 4:44 PM PDT Approved by: Johnathan Lane MD on 07/20/2022 4:44 PM PDT Station ID: [id number]
[2022-07-20] MEDS ORDERED: iohexoL-300 100 ML VIAL IVP ONE (16:51)
[2022-07-20] MEDS: POTASSIUM CHLOR 10 MEQ/100 ML 10 MEQ/100 ML BAG IV SCH ×4 (18:06→22:04)
[2022-07-21] MEDS: DEXTROSE 5%-0.9% NACL 1,000 ML IV SCH (02:46)
[2022-07-21] MEDS: SODIUM CHLORIDE FLUSH 0.9% 10 ML SYRINGE IVP SCH ×3 (02:46→16:37)
[2022-07-21 05:29] LABS: BASOPHILS # (AUTO) 0.1 10^3/uL (0.0-0.1); BASOPHILS % (AUTO) 0.9 %; EOSINOPHILS # (AUTO) 0.2 10^3/uL (0.0-0.7); EOSINOPHILS % (AUTO) 1.9 %; HCT - HEMATOCRIT 32.8 % (42.0-52.0); HGB - HEMOGLOBIN 9.9 g/dL (14.0-18.0); LYMPHOCYTES # (AUTO) 0.9 10^3/uL (1.5-3.5); LYMPHOCYTES % (AUTO) 8.2 %; MEAN CORPUSCULAR HEMOGLOBIN 29.2 pg (27.0-31.0); MEAN CORPUSCULAR HGB CONC 30.2 g/dL (32.0-36.0); MEAN CORPUSCULAR VOLUME 96.8 fL (80.0-94.0); MEAN PLATELET VOLUME 9.3 fL (7.4-11.4); MONOCYTES # (AUTO) 0.9 10^3/uL (0.0-1.0); MONOCYTES % (AUTO) 7.8 %; NEUTROPHILS # (AUTO) 9.1 10^3/uL (1.5-6.6); NEUTROPHILS % (AUTO) 79.9 %; PLT - PLATELET COUNT 355 10^3/uL (130-450); RED BLOOD COUNT 3.39 10^6/uL (4.70-6.10); RED CELL DISTRIBUTION WIDTH 17.2 % (12.0-15.0); WHITE BLOOD COUNT 11.3 x10^3/uL (4.8-10.8)
[2022-07-21 05:33] LABS: BUN - BLOOD UREA NITROGEN 12 mg/dL (6-20); CALCIUM 8.2 mg/dL (8.5-10.3); CARBON DIOXIDE - CO2 27 mmol/L (21-32); CHLORIDE 110 mmol/L (101-111); CREATININE 0.8 mg/dL (0.6-1.2); GFR - MDRD 91 (>89); GLUCOSE 105 mg/dL (70-100); IONIZED CALCIUM IF INDICATED YES; POTASSIUM 3.5 mmol/L (3.5-5.0); SODIUM 143 mmol/L (135-145)
[2022-07-21 05:56] LABS: VBG PH 7.417 (7.31-7.41)
[2022-07-21 05:57] LABS: CALCIUM, IONIZED 1.14 mmol/L (1.15-1.33)
[2022-07-21] MEDS: MULTIVITAMIN W/MINERALS TABLET PO SCH (08:23)
[2022-07-21] MEDS: APIXABAN 5 MG TABLET PO SCH ×2 (08:24→21:42)
[2022-07-21] MEDS: GABAPENTIN 300 MG CAPSULE PO SCH ×2 (08:28→21:42)
[2022-07-21] MEDS: POTASSIUM CHLORIDE 20 MEQ TABLET PO SCH (08:32)
[2022-07-21] MEDS: cefTRIAXone 1 GM in SODIUM CHLORIDE 0.9% MINIBAG 100 ML IV SCH (09:01)
[2022-07-21] MEDS ORDERED: FUROSEMIDE 40 MG/4 ML VIAL IVP STA (09:26)
[2022-07-21] MEDS: ACETAMINOPHEN 1,000 MG/100 ML 1,000 MG/100 ML BAG IV PRN ×2 (10:59→21:45)
[2022-07-21] MEDS: POTASSIUM CHLOR 10 MEQ/100 ML 10 MEQ/100 ML BAG IV SCH ×4 (13:44→19:08)
--- NOTE | 2022-07-21 13:49 | XRAY Report ---
PROCEDURE: Chest 1 View X-Ray INDICATIONS: new obtundation, aspiration, hypoxia TECHNIQUE: One view of the chest was acquired. COMPARISON: None. FINDINGS: Surgical changes and devices: None. Lungs and pleura: Moderate pleural effusions with bibasilar atelectasis/consolidation. Mediastinum: Mediastinal contours appear normal. Heart size is normal. Bones and chest wall: No suspicious bony lesions. Overlying soft tissues appear unremarkable. IMPRESSION: Moderate bilateral effusions with bibasilar atelectasis/consolidation. Reviewed by: Paul Guo on 07/21/2022 1:48 PM PDT Approved by: Paul Guo on 07/21/2022 1:48 PM PDT Station ID: [id number]
[2022-07-21 15:00] LABS: BILIRUBIN,URINE NEGATIVE (NEGATIVE); GLUCOSE, URINE (UA) NEGATIVE (NEGATIVE); KETONES,URINE (UA) NEGATIVE (NEGATIVE); LEUKOCYTE ESTERASE, URINE NEGATIVE (NEGATIVE); NITRITE,URINE NEGATIVE (NEGATIVE); OCCULT BLOOD,URINE NEGATIVE (NEGATIVE); PH,URINE 5.5 PH (5.0-7.5); PROTEIN,URINE NEGATIVE (NEGATIVE); UROBILINOGEN,URINE 0.2 (NORMAL) E.U./dL (NORMAL)
[2022-07-21 15:09] LABS: CLARITY,URINE CLEAR (CLEAR)
[2022-07-21 15:36] LABS: RBC,URINE 0-5 /HPF (0-5); SQUAMOUS EPITHELIAL CELL,UR NONE SEEN (<= Few); WBC,URINE 0-3 /HPF (0-3)
[2022-07-21 15:37] LABS: BACTERIA,URINE Rare /HPF (None Seen)
--- NOTE | 2022-07-21 19:29 | PROVIDER PROGRESS NOTE ---
Subjective - Prog Note Date Prog Note Date: 07/21/22 Prog Note Time: 19:28 - Subjective Subjective: He continues to be sedated, sleepy. Last night his was very upset because for the first time, and all of their marriage, he told her that he thinks he may be dying. She says that he and all of their family have such a positive attitude. For him to express even the most minimal negative attitude is shocking to her. Current Medications - Current Medications Current Medications: Active Medications Apixaban (Apixaban 5 Mg Tablet) 5 mg PO BID [facility] Last Admin: 07/21/22 08:24 Dose: 5 mg Gabapentin (Gabapentin 300 Mg Capsule) 300 mg PO BID [facility] Last Admin: 07/21/22 08:28 Dose: 300 mg Acetaminophen (Acetaminophen) 1,000 mg in 100 mls @ 400 mls/hr IV Q6HR PRN PRN Reason: Pain or Fever > 38C (100.4F) Last Admin: 07/21/22 10:59 Dose: 400 mls/hr Ceftriaxone Sodium 1 gm/ (Sodium Chloride) 100 mls @ 200 mls/hr IV DAILY [facility] Last Infusion: 07/21/22 09:41 Dose: Infused Multi-Ingredient Ointment (Zinc Oxide 20% Oint 30 Gm Tube) 1 applic TOP PRN PRN PRN Reason: Skin Care Last Admin: 07/20/22 02:50 Dose: 1 applic Multivitamins/Minerals (Multivitamin W/Minerals Tablet) 1 tab PO DAILYWM [facility] Last Admin: 07/21/22 08:23 Dose: 1 tab Ondansetron HCl (Ondansetron 4 Mg/2 Ml Vial) 4 mg IVP Q6HR PRN PRN Reason: Nausea / Vomiting Sodium Chloride (Sodium Chloride Flush 0.9% 10 Ml Syringe) 10 ml IVP PRN PRN PRN Reason: NEEDED PER PROVIDER ORDERS Sodium Chloride (Sodium Chloride Flush 0.9% 10 Ml Syringe) 10 ml IVP 0100,0900,1700 [facility] Last Admin: 07/21/22 16:37 Dose: 10 ml Apixaban [Eliquis] 5 mg PO BID 07/08/22 Gabapentin [Neurontin] 300 mg PO BID 07/08/22 Binimetinib [Mektovi] 45 mg PO BID 07/09/22 Encorafenib [Braftovi] 450 mg PO DAILY 07/09/22 Fluticasone 44 Mcg [Flovent] 2 puffs INH BID 07/16/22 amLODIPine [Norvasc] 5 mg PO DAILY 07/16/22 Objective - Vital Signs/Intake & Output Reviewed Vital Signs: Yes Vital Signs: Vital Signs x48h Pulse Resp BP Pulse Ox 07/21/22 16:35 91 27 H 139/71 H 97 07/21/22 12:00 100 27 H 142/67 H 95 Intake & Output: Intake & Output 07/18/22 07/19/22 07/20/22 07/21/22 23:59 23:59 23:59 23:59 Intake Total 2752.167 2064.833 2277.000 970 Output Total 550 250 375 850 Balance 2202.167 4469.029 3671.000 120 - Objective General Appearance: positive: Alert (Off-and-on. Most of the day he is asleep. He will open his eyes, purulent you, ask questions, then go back to sleep. Swa llowing has become markedly diminished. At risk for aspiration), Other (Tall, thin elderly man, continues to have what I think is marked "grayness" of his scalp and face. Not jaundice but grayness) Eyes Bilateral: positive: PERRL, EOMI ENT: positive: No signs of dehydration Neck: positive: No JVD. negative: Stiff neck Respiratory: positive: No respiratory distress. negative: Wheezes, Rales, Rh onchi Cardiovascular: positive: Regular rate & rhythm Abdomen: positive: Non-tender, No organomegaly, Nml bowel sounds, No distention Skin: positive: Warm, Dry Extremities: positive: Full ROM, Pedal edema Neurologic/Psychiatric: positive: CN's nml (2-12), Disoriented to person, Disoriented to place, Disoriented to time. negative: Motor nml (Profound generalized weakness. He needs complete help to be able to sit up, stand.) - Lab Results Fish Bones: 07/21/22 04:45 07/21/22 04:45 Other Labs: Lab Results x24hrs 07/21/22 07/21/22 07/21/22 Range/Units 13:15 04:45 04:45 WBC (4.8-10.8) x10^3/uL RBC (4.70-6.10) 10^6/uL Hgb (14.0-18.0) g/dL Hct (42.0-52.0) % MCV (80.0-94.0) fL MCH (27.0-31.0) pg MCHC (32.0-36.0) g/dL RDW (12.0-15.0) % Plt Count (130-450) 10^3/uL MPV (7.4-11.4) fL Neut # (Auto) (1.5-6.6) 10^3/uL Lymph # (Auto) (1.5-3.5) 10^3/uL [place] # (Auto) (0.0-1.0) 10^3/uL Eos # (Auto) (0.0-0.7) 10^3/uL Baso # (Auto) (0.0-0.1) 10^3/uL Absolute Nucleated RBC x10^3/uL Nucleated RBC % /100WBC VBG pH 7.417 H (7.31-7.41) Ionized Calcium 1.14 L YES (1.15-1.33) mmol/L Sodium 143 (135-145) mmol/L Potassium 3.5 (3.5-5.0) mmol/L Chloride 110 (101-111) mmol/L Carbon Dioxide 27 (21-32) mmol/L Anion Gap 6.0 (6-13) BUN 12 (6-20) mg/dL Creatinine 0.8 (0.6-1.2) mg/dL Estimated GFR (MDRD) 91 (>89) Glucose 105 H (70-100) mg/dL Calcium 8.2 L (8.5-10.3) mg/dL C-Reactive Protein (0-1.0) mg/dL Urine Color YELLOW Urine Clarity CLEAR (CLEAR) Urine pH 5.5 (5.0-7.5) PH Ur Specific [place] 1.010 (1.002-1.030) Urine Protein NEGATIVE (NEGATIVE) mg/dL Urine Glucose (UA) NEGATIVE (NEGATIVE) mg/dL Urine Ketones NEGATIVE (NEGATIVE) mg/dL Urine Occult Blood NEGATIVE (NEGATIVE) Urine Nitrite NEGATIVE (NEGATIVE) Urine Bilirubin NEGATIVE (NEGATIVE) Urine Urobilinogen 0.2 (NORMAL) (NORMAL) E.U./dL Ur Leukocyte Esterase NEGATIVE (NEGATIVE) Urine RBC 0-5 (0-5) /HPF Urine WBC 0-3 (0-3) /HPF Ur Squamous Epith Cells NONE SEEN (<= Few) Urine Bacteria Rare (None Seen) /HPF Urine Culture Comments NOT INDICATED 07/21/22 07/21/22 Range/Units 04:45 04:45 WBC 11.3 H (4.8-10.8) x10^3/uL RBC 3.39 L (4.70-6.10) 10^6/uL Hgb 9.9 L (14.0-18.0) g/dL Hct 32.8 L (42.0-52.0) % MCV 96.8 H (80.0-94.0) fL MCH 29.2 (27.0-31.0) pg MCHC 30.2 L (32.0-36.0) g/dL RDW 17.2 H (12.0-15.0) % Plt Count 355 (130-450) 10^3/uL MPV 9.3 (7.4-11.4) fL Neut # (Auto) 9.1 H (1.5-6.6) 10^3/uL Lymph # (Auto) 0.9 L (1.5-3.5) 10^3/uL [place] # (Auto) 0.9 (0.0-1.0) 10^3/uL Eos # (Auto) 0.2 (0.0-0.7) 10^3/uL Baso # (Auto) 0.1 (0.0-0.1) 10^3/uL Absolute Nucleated RBC 0.00 x10^3/uL Nucleated RBC % 0.0 /100WBC VBG pH (7.31-7.41) Ionized Calcium (1.15-1.33) mmol/L Sodium (135-145) mmol/L Potassium (3.5-5.0) mmol/L Chloride (101-111) mmol/L Carbon Dioxide (21-32) mmol/L Anion Gap (6-13) BUN (6-20) mg/dL Creatinine (0.6-1.2) mg/dL Estimated GFR (MDRD) (>89) Glucose (70-100) mg/dL Calcium (8.5-10.3) mg/dL C-Reactive Protein 6.0 H (0-1.0) mg/dL Urine Color Urine Clarity (CLEAR) Urine pH (5.0-7.5) PH Ur Specific [place] (1.002-1.030) Urine Protein (NEGATIVE) mg/dL Urine Glucose (UA) (NEGATIVE) mg/dL Urine Ketones (NEGATIVE) mg/dL Urine Occult Blood (NEGATIVE) Urine Nitrite (NEGATIVE) Urine Bilirubin (NEGATIVE) Urine Urobilinogen (NORMAL) E.U./dL Ur Leukocyte Esterase (NEGATIVE) Urine RBC (0-5) /HPF Urine WBC (0-3) /HPF Ur Squamous Epith Cells (<= Few) Urine Bacteria (None Seen) /HPF Urine Culture Comments ABX Reporting Has patient been on IV antibiotics over the past 48 hours?: Yes Sepsis Event Note (H) - Evaluation Current Stage of Sepsis: Sepsis Possible source of Sepsis: positive: Genitourinary - Sepsis Criteria Sepsis Criteria: Recorded Heart Rate greater than 90 bpm, Recorded Respiratory Rate greater than 20, LIBRARY INFORMATION TECHNICIAN: altered consciousness (unrelated to primary neuro pathology), Metabolic: lactate > 2 mmol/L Assessment/Plan - Problem List (1) E coli bacteremia Impression: 07/07/22: In ER for confusion and fever. Sent home w nml labs and good response to IVF. 07/08: ER asked him to return to ER when blood cultures grew out E coli bacter emia He was then hospitalized here from 07/08 to 07/10 and got iv Ceftriaxone, which was transitioned to po Cipro. Repeat blood cultures were negative while on ceftriaxone. 07/11: Fever on Cipro so he returned to the ER. Blood cultures from that date were negative. He was monitored in the ER and Gen Surg did consult, since CT scanning of the abdomen on that ER visit demonstrated GB source suspected. So he was sent home from the ER on 07/12 with antibx changed to po Augmentin and Flagyl. 07/15/22: He took Augmentin and Flagyl but came back 07/15 with a fever at home again and is now admitted again. In the ER and for the rest of his stay he has not had fevers. Tachycardia resolved by 07/16. Two of 2 blood cultures that were drawn in the ER 07/15 have turned positive for E coli, He is pansensitive to all antibiotics for E. coli. We started empiric IV cefepime and empiric IV Vanco, which he received for 2-1/2 days. Vancomycin was discontinued July 17. PSA screen is 0.353 from July 15. Indirect indication that this is not prostatitis. He was transferred from ICU status to [facility] status on July 17. He has had an abdomen pelvis CT here on July 15. That was compared to July 11, and June 13. He has moderate bilateral pleural effusions. The liver is abnormal with multiple poorly defined nodules that are attributed to metastatic melanoma. Most of these are less than 1 cm but the right posterior lobe lesion is 5.5 cm. Multiple subcentimeter low-density nodules in the spleen. Gallbladder is largely collapsed, biliary system is nondilated. Kidneys normal without hydronephrosis. Bowel loops are normal. No free air. Moderate ascites is seen. Diverticulosis without diverticulitis is seen. No retroperitoneal or mesenteric adenopathy. Bladder wall thickness is normal. Radiology is suggesting that maybe they could be correlated with liver abscesses and not metastatic disease. In speaking to [facility] Infectious Disease we discussed the possibility that his liver nodules, especially the 5 cm nodule, could be an abscess. There are no fluid or air in these nodules but these are all noncontrast CTs. Essentially I am looking for a GI or source for this man's E. coli bacteremia. I repeated the CT of the abdomen and pelvis July 20. With contrast. No change from previous CTs. Even though radiology hedged and said possibly, possibly could be abscesses, they are not classic for abscess and look more like metastatic disease. Continues to have the same nodules in the spleen as well. For the last 2 days have been discussing the case with [facility] infectious disease attending. She is in the clinic there. She reviewed the cultures. Even though we pushed the CT scans to them, their radiologist will not be able to look at them. Due to severe limitations of their abdominal imaging faculty staff, they cannot perform reviews of scans performed outside their institution unless required for tumor board or liver transplant listings. From an infectious disease perspective she does not think there should be any additional work-up. They do not think they need to perform anything there so as such do not really need him to be transferred to higher level of care. She agrees with treating him with 2 weeks of IV antibiotic therapy in the form of ceftriaxone. If he recurs following this course then we will need to reassess what additional evaluation should be considered at that time. He would likely need repeat abdominal imaging. I reiterated that he does not have a port or central line access. I was able to share all of this with his . She is happy that he is not can to be transferred. But she is not happy with the idea that I am actually thinking that all of this may come back and she is going to have to relive this all over again. At that point, I explained, she really needs to drive to the [facility] and take him there. We do not have specialty services here that can help him. Plan: Change cefepime to Rocephin 1 g. He does not need to be on such a broad- spectrum and we can narrow it down. (2) Fall during current hospitalization Impression: Unwitnessed fall July 16. The patient's bed alarm was not on. The telemetry DOPER OPERATOR thought that she noticed an abnormal irregular heart rhythm, poss VT, and informed his nurse. The nurse and LEAD ANDROID DEVELOPER went in to see the patient and found him on the floor, right near the bed, head was almost against the wall, both bedrails were up. He told his nurse that he climbed over the bed rail because he had to urinate. He was able to remember that he hit his head approximately on the occiput in the middle. He denied any headache, there was no skin tear, or neurologic deficit when I examined him. He did have a "bump" right at the back of his head but it is nontender. I contacted the and informed her of this event. A c-collar was placed, he underwent STAT CT head and C-spine CT which were neg and c-collar was removed. An order was written to remind nursing to keep the bed alarm on when the patient is alone in the room. He has remained on telemetry because of the abnormal irregular heart rhythm that was seen associated with this fall. But after reviewing that strip, hospitalist feels that it is telemetry artifact from the motion of his body. Plan: PT and OT to continue working with him. 07/20 was a difficult day because he is so sleepy from the residual of the Ativan given to him last night. Due to dementia, he did not remember to call for help before he climbed OOB. Ativan was discontinued. continues to reiterate that she can take care of him when he gets home. She has no intention of having him do rehab in a SNF. Or get care in a SNF. She also shares with me that she does not want her to go to a prison facility because he will not be able to get his immunomodulating regimen for his melanoma. She has already been told that if he goes to [facility], they will not receive payment for those pills. So she does not want him to go. They will try to work with him tomorrow (3) Yeast UTI Impression: He had an abnormal urinalysis at admission, culture was indicated. 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 This urine culture has not grown the E. coli which is causing the bacteremia current. PSA is very low. So I do not suspect prostatitis Plan: Cefepime was changed to Rocephin 07/20 (4) Metastatic melanoma Conclusion/Plan: He gets oral Braftovi and Mektovi for the treatment of his metastatic melanoma. He is currently being managed by Dr. Arianna Reeder at . His immunotherapy has been on hold since the first fever earlier this month (07/07), since his fever and infection has not cleared Hospitalist spoke to his Oncol, Dr Arianna Reeder at 07/17, about this hospitalization with recurrent bacteremia ([phone]) and she said that this time iv antibx should be continued longer. Unfortunately, we do not have a source therefore we do not know the exact duration for treatment. Most gram- negative bacteremia gets up to 2 weeks of therapy depending on the source. Infectious disease states that he will need it for 2 weeks of antibiotics. (5) Pacemaker Conclusion/Plan: As per history. Echocardiogram has left ventricular wall thickness normal. Ejection fraction 50 to 55%. Regional wall motion abnormalities were seen. The distal anterolateral and distal inferolateral wall segments are hypokinetic. Right ventricle normal. Pacemaker leads in the right atrium and right ventricle. Cannot exclude lead associated vegetations. Multiple device leads present. Left atrium normal. No evidence of aortic stenosis. No mitral stenosis. Mild tricuspid regurgitation. RVSP 44 mmHg. Previous hospitalist postulated the possibility of lead vegetations. That these would be the cause of his E. coli bacteremia. Plan: Because he has a history of A-fib and presented tachycardic, he remains on telemetry I had thought to do an MRI of the head to see if some of his confusion could be from metastatic disease to the brain. But we are unable to do an MRI because of his pacemaker. (6) Hypokalemia Conclusion/Plan: Possibly from poor intake during his AMS. With today's potassium of 3.5, he is stable. However it is difficult for him to take p.o. He may need to get IV K riders if he remains unable to swallow (7) Dementia Conclusion/Plan: As per history he has mild dementia, the makes most of his decisions He is on no meds for his dementia Plan: Given the fall (see #2), he will need to have constant supervision going forward. (8) AMS (altered mental status) Conclusion/Plan: Resolved. He has presented several times with somnolence and confusion, when he has had a fever and infection. By the time he was in his ICU bed on 07/15 from the ER, he was sleepy but awoke to converse normally and was alert and oriented x3. Since that initial somnolence, he has been awake, alert. But fretful. Very f orgetful. Does not want to be here. Behavior deteriorates noticeably when his leaves for the evening. And then he sounds down. Today we have noticed that he did not respond well to the Ativan from last night. As such the Ativan will be discontinued. I did think about doing an MRI today. However he has a pacer, as such no MRI (9) Sepsis resolved. Impression: Resolved He had criteria for sepsis including tachycardia, elevated Lactic acid level, f ever, tachypnea, altered mental status and abnormal urinalysis He was started on IV fluids and empiric antibx, with a presume urinary source. We started empiric IV cefepime and empiric IV Vanco, which he has now received for 2.5 days. Plan: Was on cefepime for E. coli bacteremia and that will be stopped today. Vancomycin has been stopped. Rocephin Was started July 20
[2022-07-21] MEDS: ZINC OXIDE 20% OINT 30 GM TUBE TOP PRN (21:28)
[2022-07-22] MEDS: SODIUM CHLORIDE FLUSH 0.9% 10 ML SYRINGE IVP SCH ×3 (00:44→16:32)
[2022-07-22 04:56] LABS: BASOPHILS # (AUTO) 0.1 10^3/uL (0.0-0.1); EOSINOPHILS # (AUTO) 0.2 10^3/uL (0.0-0.7); EOSINOPHILS % (AUTO) 1.3 %; HCT - HEMATOCRIT 31.5 % (42.0-52.0); HGB - HEMOGLOBIN 9.9 g/dL (14.0-18.0); LYMPHOCYTES % (AUTO) 8.6 %; MEAN CORPUSCULAR HEMOGLOBIN 29.8 pg (27.0-31.0); MEAN CORPUSCULAR HGB CONC 31.4 g/dL (32.0-36.0); MEAN CORPUSCULAR VOLUME 94.9 fL (80.0-94.0); MEAN PLATELET VOLUME 8.7 fL (7.4-11.4); MONOCYTES # (AUTO) 0.8 10^3/uL (0.0-1.0); NEUTROPHILS # (AUTO) 9.1 10^3/uL (1.5-6.6); PLT - PLATELET COUNT 305 10^3/uL (130-450); RED BLOOD COUNT 3.32 10^6/uL (4.70-6.10); RED CELL DISTRIBUTION WIDTH 17.1 % (12.0-15.0); WHITE BLOOD COUNT 11.2 x10^3/uL (4.8-10.8)
[2022-07-22 05:02] LABS: BUN - BLOOD UREA NITROGEN 12 mg/dL (6-20); CALCIUM 8.2 mg/dL (8.5-10.3); CARBON DIOXIDE - CO2 29 mmol/L (21-32); CHLORIDE 105 mmol/L (101-111); CREATININE 0.9 mg/dL (0.6-1.2); GFR - MDRD 80 (>89); GLUCOSE 100 mg/dL (70-100); IONIZED CALCIUM IF INDICATED YES; POTASSIUM 3.3 mmol/L (3.5-5.0); SODIUM 140 mmol/L (135-145)
[2022-07-22 05:24] LABS: CALCIUM, IONIZED 1.15 mmol/L (1.15-1.33); VBG PH 7.436 (7.31-7.41)
[2022-07-22] MEDS: APIXABAN 5 MG TABLET PO SCH ×2 (08:16→21:54)
[2022-07-22] MEDS: MULTIVITAMIN W/MINERALS TABLET PO SCH (08:16)
[2022-07-22] MEDS: GABAPENTIN 300 MG CAPSULE PO SCH ×2 (08:17→21:54)
[2022-07-22] MEDS: cefTRIAXone 1 GM in SODIUM CHLORIDE 0.9% MINIBAG 100 ML IV SCH (08:21)
[2022-07-22] MEDS: POTASSIUM CHLOR 10 MEQ/100 ML 10 MEQ/100 ML BAG IV SCH ×4 (09:45→13:01)
[2022-07-22] MEDS ORDERED: FUROSEMIDE 40 MG/4 ML VIAL IVP STA (14:03)
[2022-07-22] MEDS ORDERED: LOPERAMIDE 2 MG CAPSULE PO PRN (16:26)
[2022-07-22] MEDS: SACCHAROMYCES BOULARDII 250 MG CAPSULE PO SCH (17:50)
--- NOTE | 2022-07-22 18:30 | PROVIDER PROGRESS NOTE ---
Subjective - Prog Note Date Prog Note Date: 07/22/22 Prog Note Time: 18:28 - Subjective Subjective: He is awake. Talking to . Tearful. Knows he is in the hospital. Cannot remember that he met me. He is apologetic. Still having problems with swal lowing but much more appropriate. Today is Sunday. His dosing for Ativan was Sunday. Has taken of this long to slowly recover. Current Medications - Current Medications Current Medications: Active Medications Apixaban (Apixaban 5 Mg Tablet) 5 mg PO BID [facility] Last Admin: 07/22/22 08:16 Dose: 5 mg Gabapentin (Gabapentin 300 Mg Capsule) 300 mg PO BID [facility] Last Admin: 07/22/22 08:17 Dose: 300 mg Acetaminophen (Acetaminophen) 1,000 mg in 100 mls @ 400 mls/hr IV Q6HR PRN PRN Reason: Pain or Fever > 38C (100.4F) Last Infusion: 07/21/22 22:11 Dose: Infused Ceftriaxone Sodium 1 gm/ (Sodium Chloride) 100 mls @ 200 mls/hr IV DAILY [facility] Last Infusion: 07/22/22 09:45 Dose: Infused Loperamide HCl (Loperamide 2 Mg Capsule) 2 mg PO QID PRN PRN Reason: Diarrhea Multi-Ingredient Ointment (Zinc Oxide 20% Oint 30 Gm Tube) 1 applic TOP PRN PRN PRN Reason: Skin Care Last Admin: 07/21/22 21:28 Dose: 1 applic Multivitamins/Minerals (Multivitamin W/Minerals Tablet) 1 tab PO DAILYWM [facility] Last Admin: 07/22/22 08:16 Dose: 1 tab Ondansetron HCl (Ondansetron 4 Mg/2 Ml Vial) 4 mg IVP Q6HR PRN PRN Reason: Nausea / Vomiting Saccharomyces Boulardii (Saccharomyces Boulardii 250 Mg Capsule) 250 mg PO BIDWM [facility] Last Admin: 07/22/22 17:50 Dose: 250 mg Sodium Chloride (Sodium Chloride Flush 0.9% 10 Ml Syringe) 10 ml IVP PRN PRN PRN Reason: NEEDED PER PROVIDER ORDERS Last Admin: 07/22/22 04:26 Dose: 10 ml Sodium Chloride (Sodium Chloride Flush 0.9% 10 Ml Syringe) 10 ml IVP 0100,0900,1700 [facility] Last Admin: 07/22/22 16:32 Dose: 10 ml Apixaban [Eliquis] 5 mg PO BID 07/08/22 Gabapentin [Neurontin] 300 mg PO BID 07/08/22 Binimetinib [Mektovi] 45 mg PO BID 07/09/22 Encorafenib [Braftovi] 450 mg PO DAILY 07/09/22 Fluticasone 44 Mcg [Flovent] 2 puffs INH BID 07/16/22 amLODIPine [Norvasc] 5 mg PO DAILY 07/16/22 Objective - Vital Signs/Intake & Output Reviewed Vital Signs: Yes Vital Signs: Vital Signs x48h Temp Pulse Resp BP Pulse Ox 07/22/22 15:44 36.8 C 95 18 137/80 H 99 07/22/22 12:12 36.9 C 83 21 150/76 H 99 Intake & Output: Intake & Output 07/19/22 07/20/22 07/21/22 07/22/22 23:59 23:59 23:59 23:59 Intake Total 2064.833 2277.000 2270 1890 Output Total 796 336 0630 2600 Balance 0752.436 2684.000 520 -710 - Objective General Appearance: positive: No acute distress, Alert, Other (Laying in bed, quietly speaking to . Tears in his eyes. Tells me that his back aches but not much more than that.) Eyes Bilateral: positive: PERRL, EOMI ENT: positive: No signs of dehydration Neck: positive: No JVD. negative: Stiff neck Respiratory: positive: No respiratory distress, Rhonchi (Right midlung. He coughs and the rhonchi goes away.). negative: Wheezes, Rales Cardiovascular: positive: Regular rate & rhythm Abdomen: positive: Non-tender, No organomegaly, Nml bowel sounds Skin: positive: Warm, Dry Extremities: positive: Full ROM, Pedal edema Neurologic/Psychiatric: positive: CN's nml (2-12), Disoriented to time. ne gative: Motor nml (Severe generalized weakness. He cannot sit up on its own.) - Lab Results Fish Bones: 07/22/22 04:51 07/22/22 04:51 Other Labs: Lab Results x24hrs 07/22/22 07/22/22 07/22/22 Range/Units 04:51 04:51 04:51 WBC 11.2 H (4.8-10.8) x10^3/uL RBC 3.32 L (4.70-6.10) 10^6/uL Hgb 9.9 L (14.0-18.0) g/dL Hct 31.5 L (42.0-52.0) % MCV 94.9 H (80.0-94.0) fL MCH 29.8 (27.0-31.0) pg MCHC 31.4 L (32.0-36.0) g/dL RDW 17.1 H (12.0-15.0) % Plt Count 305 (130-450) 10^3/uL MPV 8.7 (7.4-11.4) fL Neut # (Auto) 9.1 H (1.5-6.6) 10^3/uL Lymph # (Auto) 1.0 L (1.5-3.5) 10^3/uL Menard # (Auto) 0.8 (0.0-1.0) 10^3/uL Eos # (Auto) 0.2 (0.0-0.7) 10^3/uL Baso # (Auto) 0.1 (0.0-0.1) 10^3/uL Absolute Nucleated RBC 0.00 x10^3/uL Nucleated RBC % 0.0 /100WBC VBG pH 7.436 H (7.31-7.41) Ionized Calcium 1.15 YES (1.15-1.33) mmol/L Sodium 140 (135-145) mmol/L Potassium 3.3 L (3.5-5.0) mmol/L Chloride 105 (101-111) mmol/L Carbon Dioxide 29 (21-32) mmol/L Anion Gap 6.0 (6-13) BUN 12 (6-20) mg/dL Creatinine 0.9 (0.6-1.2) mg/dL Estimated GFR (MDRD) 80 L (>89) Glucose 100 (70-100) mg/dL Calcium 8.2 L (8.5-10.3) mg/dL Sepsis Event Note (H) - Evaluation Current Stage of Sepsis: Sepsis Possible source of Sepsis: positive: Genitourinary - Sepsis Criteria Sepsis Criteria: Recorded Heart Rate greater than 90 bpm, Recorded Respiratory Rate greater than 20, FOOD CHECKER: altered consciousness (unrelated to primary neuro pathology), Metabolic: lactate > 2 mmol/L Assessment/Plan - Problem List (1) E coli bacteremia Impression: 07/07/22: In ER for confusion and fever. Sent home w nml labs and good response to IVF. 07/08: ER asked him to return to ER when blood cultures grew out E coli bacteremia He was then hospitalized here from 07/08 to 07/10 and got iv Ceftriaxone, which was transitioned to po Cipro. Repeat blood cultures were negative while on ceftriaxone. 07/11: Fever on Cipro so he returned to the ER. Blood cultures from that date were negative. He was monitored in the ER and Gen Surg did consult, since CT scanning of the abdomen on that ER visit demonstrated GB source suspected. So he was sent home from the ER on 07/12 with antibx changed to po Augmentin and Flagyl. 07/15/22: He took Augmentin and Flagyl but came back 07/15 with a fever at home again and is now admitted again. In the ER and for the rest of his stay he has not had fevers. Tachycardia resolved by 07/16. Two of 2 blood cultures that were drawn in the ER 07/15 have turned positive for E coli, He is pansensitive to all antibiotics for E. coli. We started empiric IV cefepime and empiric IV Vanco, which he received for 2-1/2 days. Vancomycin was discontinued July 17. PSA screen is 0.353 from July 15. Indirect indication that this is not prostatitis. He was transferred from ICU status to [facility] status on July 17. He has had an abdomen pelvis CT here on July 15. That was compared to July 11, and June 13. He has moderate bilateral pleural effusions. The liver is abnormal with multiple poorly defined nodules that are attributed to metastatic melanoma. Most of these are less than 1 cm but the right posterior lobe lesion is 5.5 cm. Multiple subcentimeter low-density nodules in the spleen. Gallbladder is largely collapsed, biliary system is nondilated. Kidneys normal without hydronephrosis. Bowel loops are normal. No free air. Moderate ascites is seen. Diverticulosis without diverticulitis is seen. No retroperitoneal or mesenteric adenopathy. Bladder wall thickness is normal. Radiology is suggesting that maybe they could be correlated with liver abscesses and not metastatic disease. In speaking to [facility] Infectious Disease we discussed the possibility that his liver nodules, especially the 5 cm nodule, could be an abscess. There are no fluid or air in these nodules but these are all noncontrast CTs. Essentially I am looking for a GI or source for this man's E. coli bacteremia. I repeated the CT of the abdomen and pelvis July 20. With contrast. No change from previous CTs. Even though radiology hedged and said possibly, possibly could be abscesses, they are not classic for abscess and look more like metastatic disease. Continues to have the same nodules in the spleen as well. For 2 days I discussed the case with [facility] infectious disease attending. She is in the clinic there. Dr. Jacob. She reviewed the cultures. Even though we pushed the CT scans to them, their radiologist will not be able to look at them. Due to severe limitations of their abdominal imaging faculty staff, they cannot perform reviews of scans performed outside their institution unless required for tumor board or liver transplant listings. From an infectious disease perspective she does not think there should be any additional work-up. They do not think they need to perform anything there so as such do not really need him to be transferred to higher level of care. She agrees with treating him with 2 weeks of IV antibiotic therapy in the form of ceftriaxone. If he recurs following this course then we will need to reassess what additional evaluation should be considered at that time. He would likely need repeat abdominal imaging. I reiterated that he does not have a port or central line access. I was able to share all of this with his . She is happy that he is not can to be transferred. But she is not happy with the idea that I am actually thinking that all of this may come back and she is going to have to relive this all over again. At that point, I explained, she really needs to drive to the [facility] and take him there. We do not have specialty services here that can help him. Plan: Change cefepime to Rocephin 1 g. He does not need to be on such a broad- spectrum and we can narrow it down. For leg edema, he received Lasix 40 mg IV push yesterday. Urine output was 1750 cc with this. I have given another dose of Lasix and urine output was 2600 cc. He will need antibiotics until approximately July 28 or July 29. (2) Fall during current hospitalization Impression: Unwitnessed fall July 16. The patient's bed alarm was not on. The telemetry MEMBER SERVICE REPRESENTATIVE thought that she noticed an abnormal irregular heart rhythm, poss VT, and informed his nurse. The nurse and SOLUTIONS OPERATOR went in to see the patient and found him on the floor, right near the bed, head was almost against the wall, both bedrails were up. He told his nurse that he climbed over the bed rail because he had to urinate. He was able to remember that he hit his head approximately on the occiput in the middle. He denied any headache, there was no skin tear, or neurologic deficit when I examined him. He did have a "bump" right at the back of his head but it is nontender. I contacted the and informed her of this event. A c-collar was placed, he underwent STAT CT head and C-spine CT which were neg and c-collar was removed. An order was written to remind nursing to keep the bed alarm on when the patient is alone in the room. He has remained on telemetry because of the abnormal irregular heart rhythm that was seen associated with this fall. But after reviewing that strip, hospitalist feels that it is telemetry artifact from the motion of his body. Plan: PT and OT to continue working with him. 07/20 was a difficult day because he is so sleepy from the residual of the Ativan given to him the night before. Due to dementia, he did not remember to call for help before he climbed OOB. Ativan was discontinued. continues to reiterate that she can take care of him when he gets home. She has no intention of having him do rehab in a SNF. Or get care in a SNF. She also shares with me that she does not want her to go to a prison facility because he will not be able to get his immunomodulating regimen for his melanoma. She has already been told that if he goes to shelter, they will not receive payment for those pills. So she does not want him to go. He was able to work with physical therapy today. Much more alert. But still very weak. (3) Yeast UTI Impression: He had an abnormal urinalysis at admission, culture was indicated. 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 This urine culture has not grown the E. coli which is causing the bacteremia current. PSA is very low. So I do not suspect prostatitis Plan: Cefepime was changed to Rocephin 07/20 (4) Metastatic melanoma Conclusion/Plan: He gets oral Braftovi and Mektovi for the treatment of his metastatic melanoma. He is currently being managed by Dr. Arianna Reeder at [facility]. His immunotherapy has been on hold since the first fever earlier this month (06/21 7), since his fever and infection has not cleared Hospitalist spoke to his Oncol, Dr Arianna Reeder at [facility] 07/17, about this hospitalization with recurrent bacteremia ([phone]) and she said that this time iv antibx should be continued longer. Unfortunately, we do not have a source therefore we do not know the exact duration for treatment. Most gram- negative bacteremia gets up to 2 weeks of therapy depending on the source. Infectious disease states that he will need it for 2 weeks of antibiotics. (5) Pacemaker Conclusion/Plan: As per history. Echocardiogram has left ventricular wall thickness normal. Ejection fraction 50 to 55%. Regional wall motion abnormalities were seen. The distal anterolateral and distal inferolateral wall segments are hypokinetic. Right ventricle normal. Pacemaker leads in the right atrium and right ventricle. Cannot exclude lead associated vegetations. Multiple device leads present. Left atrium normal. No evidence of aortic stenosis. No mitral stenosis. Mild tricuspid regurgitation. RVSP 44 mmHg. Previous hospitalist postulated the possibility of lead vegetations. That these would be the cause of his E. coli bacteremia. Plan: Because he has a history of A-fib and presented tachycardic, he remains on telemetry I had thought to do an MRI of the head to see if some of his confusion could be from metastatic disease to the brain. But we are unable to do an MRI because of his pacemaker. (6) Hypokalemia Conclusion/Plan: Possibly from poor intake during his AMS. With today's potassium of 3.3, received K riders. (7) Dementia Conclusion/Plan: As per history he has mild dementia, the makes most of his decisions He is on no meds for his dementia Plan: Given the fall (see #2), he will need to have constant supervision going forward. (8) AMS (altered mental status) Conclusion/Plan: Resolved. He has presented several times with somnolence and confusion, when he has had a fever and infection. By the time he was in his ICU bed on 07/15 from the ER, he was sleepy but awoke to converse normally and was alert and oriented x3. Since that initial somnolence, he has been awake, alert. But fretful. Very forgetful. Does not want to be here. Behavior deteriorates noticeably when his leaves for the evening. And then he sounds down. He had a profound effect of the 1 dose of Ativan. Way too sedated. That was on Sunday, and today is Sunday. It took him that long to recover. I did think about doing an MRI today. However he has a pacer, as such no MRI (9) Sepsis resolved. Impression: Resolved He had criteria for sepsis including tachycardia, elevated Lactic acid level, fever, tachypnea, altered mental status and abnormal urinalysis He was started on IV fluids and empiric antibx, with a presume urinary source. We started empiric IV cefepime and empiric IV Vanco, which he has now received for 2.5 days. Plan: Was on cefepime for E. coli bacteremia and that will be stopped. Vancomycin has been stopped. Rocephin Was started July 20
[2022-07-22] MEDS: ZINC OXIDE 20% OINT 30 GM TUBE TOP PRN (21:58)
[2022-07-23] MEDS: SODIUM CHLORIDE FLUSH 0.9% 10 ML SYRINGE IVP SCH ×3 (02:53→18:16)
[2022-07-23 05:41] LABS: BASOPHILS # (AUTO) 0.1 10^3/uL (0.0-0.1); EOSINOPHILS # (AUTO) 0.2 10^3/uL (0.0-0.7); EOSINOPHILS % (AUTO) 1.6 %; HCT - HEMATOCRIT 32.1 % (42.0-52.0); HGB - HEMOGLOBIN 10.1 g/dL (14.0-18.0); LYMPHOCYTES % (AUTO) 9.8 %; MEAN CORPUSCULAR HEMOGLOBIN 29.7 pg (27.0-31.0); MEAN CORPUSCULAR HGB CONC 31.5 g/dL (32.0-36.0); MEAN CORPUSCULAR VOLUME 94.4 fL (80.0-94.0); MEAN PLATELET VOLUME 9.1 fL (7.4-11.4); MONOCYTES # (AUTO) 0.8 10^3/uL (0.0-1.0); MONOCYTES % (AUTO) 7.2 %; NEUTROPHILS # (AUTO) 8.3 10^3/uL (1.5-6.6); NEUTROPHILS % (AUTO) 79.5 %; PLT - PLATELET COUNT 349 10^3/uL (130-450); WHITE BLOOD COUNT 10.4 x10^3/uL (4.8-10.8)
[2022-07-23 05:43] LABS: BUN - BLOOD UREA NITROGEN 13 mg/dL (6-20); CALCIUM 8.2 mg/dL (8.5-10.3); CARBON DIOXIDE - CO2 29 mmol/L (21-32); CHLORIDE 104 mmol/L (101-111); CREATININE 0.8 mg/dL (0.6-1.2); GFR - MDRD 91 (>89); GLUCOSE 100 mg/dL (70-100); IONIZED CALCIUM IF INDICATED YES; POTASSIUM 3.2 mmol/L (3.5-5.0); SODIUM 139 mmol/L (135-145)
[2022-07-23 05:50] LABS: CALCIUM, IONIZED 1.14 mmol/L (1.15-1.33); VBG PH 7.472 (7.31-7.41)
[2022-07-23] MEDS: MULTIVITAMIN W/MINERALS TABLET PO SCH (08:32)
[2022-07-23] MEDS: APIXABAN 5 MG TABLET PO SCH ×2 (08:33→21:25)
[2022-07-23] MEDS: SACCHAROMYCES BOULARDII 250 MG CAPSULE PO SCH ×2 (08:33→17:07)
[2022-07-23] MEDS: GABAPENTIN 300 MG CAPSULE PO SCH ×2 (08:33→21:25)
[2022-07-23] MEDS ORDERED: POTASSIUM CHLOR 10 MEQ/100 ML 10 MEQ/100 ML BAG IV SCH (09:00)
[2022-07-23] MEDS: cefTRIAXone 1 GM in SODIUM CHLORIDE 0.9% MINIBAG 100 ML IV SCH (09:00)
[2022-07-23] MEDS ORDERED: POTASSIUM CHLORIDE 20 MEQ TABLET PO ONE (10:28)
--- NOTE | 2022-07-23 12:59 | PROVIDER PROGRESS NOTE ---
Subjective - Prog Note Date Prog Note Date: 07/23/22 Prog Note Time: 12:57 - Subjective Subjective: he knows where he and that he has some blood issue that is keeping him in the hospital. But not the date. Current Medications - Current Medications Current Medications: Active Medications Apixaban (Apixaban 5 Mg Tablet) 5 mg PO BID [facility] Last Admin: 07/23/22 08:33 Dose: 5 mg Gabapentin (Gabapentin 300 Mg Capsule) 300 mg PO BID [facility] Last Admin: 07/23/22 08:33 Dose: 300 mg Acetaminophen (Acetaminophen) 1,000 mg in 100 mls @ 400 mls/hr IV Q6HR PRN PRN Reason: Pain or Fever > 38C (100.4F) Last Infusion: 07/21/22 22:11 Dose: Infused Ceftriaxone Sodium 1 gm/ (Sodium Chloride) 100 mls @ 200 mls/hr IV DAILY [facility] Last Infusion: 07/23/22 09:35 Dose: Infused Loperamide HCl (Loperamide 2 Mg Capsule) 2 mg PO QID PRN PRN Reason: Diarrhea Multi-Ingredient Ointment (Zinc Oxide 20% Oint 30 Gm Tube) 1 applic TOP PRN PRN PRN Reason: Skin Care Last Admin: 07/22/22 21:58 Dose: 1 applic Multivitamins/Minerals (Multivitamin W/Minerals Tablet) 1 tab PO DAILYWM [facility] Last Admin: 07/23/22 08:32 Dose: 1 tab Ondansetron HCl (Ondansetron 4 Mg/2 Ml Vial) 4 mg IVP Q6HR PRN PRN Reason: Nausea / Vomiting Saccharomyces Boulardii (Saccharomyces Boulardii 250 Mg Capsule) 250 mg PO BIDWM [facility] Last Admin: 07/23/22 08:33 Dose: 250 mg Sodium Chloride (Sodium Chloride Flush 0.9% 10 Ml Syringe) 10 ml IVP PRN PRN PRN Reason: NEEDED PER PROVIDER ORDERS Last Admin: 07/22/22 04:26 Dose: 10 ml Sodium Chloride (Sodium Chloride Flush 0.9% 10 Ml Syringe) 10 ml IVP 0100,0900,1700 [facility] Last Admin: 07/23/22 09:35 Dose: 10 ml Apixaban [Eliquis] 5 mg PO BID 07/08/22 Gabapentin [Neurontin] 300 mg PO BID 07/08/22 Binimetinib [Mektovi] 45 mg PO BID 07/09/22 Encorafenib [Braftovi] 450 mg PO DAILY 07/09/22 Fluticasone 44 Mcg [Flovent] 2 puffs INH BID 07/16/22 amLODIPine [Norvasc] 5 mg PO DAILY 07/16/22 Objective - Vital Signs/Intake & Output Reviewed Vital Signs: Yes Vital Signs: Vital Signs x48h Temp Pulse Resp BP Pulse Ox 07/23/22 12:55 36.6 C 101 H 19 153/73 H 100 07/23/22 08:11 36.8 C 96 17 155/73 H 100 07/23/22 05:00 86 21 145/69 H 96 Intake & Output: Intake & Output 07/20/22 07/21/22 07/22/22 07/23/22 23:59 23:59 23:59 23:59 Intake Total 2277.000 2270 1890 550 Output Total 375 1750 3200 475 Balance 1902.000 520 -1310 75 - Objective General Appearance: positive: Alert, Other (sitting up in chair, knows he's in hospital, that he has a blood disorder, but not date or time) Eyes Bilateral: positive: PERRL, EOMI ENT: positive: No signs of dehydration Neck: positive: No JVD. negative: Stiff neck Respiratory: positive: No respiratory distress. negative: Wheezes, Rales, Rhonchi Cardiovascular: positive: Regular rate & rhythm Abdomen: positive: Non-tender, No organomegaly, Nml bowel sounds, No distention Skin: positive: Warm, Dry Extremities: positive: Full ROM, Pedal edema (has improved over 4 days w less and less edema but still present mainly around ankles. better around calves) Neurologic/Psychiatric: positive: CN's nml (2-12), Disoriented to time. negative: Motor nml (unsteady, shuffling, fall risk. but able to get out of bed w RN/aide, sit in chair.) - Lab Results Fish Bones: 07/23/22 05:26 07/23/22 05:26 Other Labs: Lab Results x24hrs 07/23/22 07/23/22 07/23/22 Range/Units 05:26 05:26 05:26 WBC 10.4 (4.8-10.8) x10^3/uL RBC 3.40 L (4.70-6.10) 10^6/uL Hgb 10.1 L (14.0-18.0) g/dL Hct 32.1 L (42.0-52.0) % MCV 94.4 H (80.0-94.0) fL MCH 29.7 (27.0-31.0) pg MCHC 31.5 L (32.0-36.0) g/dL RDW 17.0 H (12.0-15.0) % Plt Count 349 (130-450) 10^3/uL MPV 9.1 (7.4-11.4) fL Neut # (Auto) 8.3 H (1.5-6.6) 10^3/uL Lymph # (Auto) 1.0 L (1.5-3.5) 10^3/uL Ocean # (Auto) 0.8 (0.0-1.0) 10^3/uL Eos # (Auto) 0.2 (0.0-0.7) 10^3/uL Baso # (Auto) 0.1 (0.0-0.1) 10^3/uL Absolute Nucleated RBC 0.00 x10^3/uL Nucleated RBC % 0.0 /100WBC VBG pH 7.472 H (7.31-7.41) Ionized Calcium 1.14 L YES (1.15-1.33) mmol/L Sodium 139 (135-145) mmol/L Potassium 3.2 L (3.5-5.0) mmol/L Chloride 104 (101-111) mmol/L Carbon Dioxide 29 (21-32) mmol/L Anion Gap 6.0 (6-13) BUN 13 (6-20) mg/dL Creatinine 0.8 (0.6-1.2) mg/dL Estimated GFR (MDRD) 91 (>89) Glucose 100 (70-100) mg/dL Calcium 8.2 L (8.5-10.3) mg/dL ABX Reporting Has patient been on IV antibiotics over the past 48 hours?: Yes Sepsis Event Note (H) - Evaluation Current Stage of Sepsis: Sepsis Possible source of Sepsis: positive: Genitourinary - Sepsis Criteria Sepsis Criteria: Recorded Heart Rate greater than 90 bpm, Recorded Respiratory Rate greater than 20, SECURITY ANALYST: altered consciousness (unrelated to primary neuro pathology), Metabolic: lactate > 2 mmol/L Assessment/Plan - Problem List (1) E coli bacteremia Impression: 07/07/22: In ER for confusion and fever. Sent home w nml labs and good response to IVF. 07/08: ER asked him to return to ER when blood cultures grew out E coli bacteremia He was then hospitalized here from 07/08 to 07/10 and got iv Ceftriaxone, which was transitioned to po Cipro. Repeat blood cultures were negative while on ceftriaxone. 07/11: Fever on Cipro so he returned to the ER. Blood cultures from that date were negative. He was monitored in the ER and Gen Surg did consult, since CT scanning of the abdomen on that ER visit demonstrated GB source suspected. So he was sent home from the ER on 07/12 with antibx changed to po Augmentin and Flagyl. 07/15/22: He took Augmentin and Flagyl but came back 07/15 with a fever at home again and is now admitted again. In the ER and for the rest of his stay he has not had fevers. Tachycardia resolved by 07/16. Two of 2 blood cultures that were drawn in the ER 07/15 have turned positive for E coli, He is pansensitive to all antibiotics for E. coli. We started empiric IV cefepime and empiric IV Vanco, which he received for 2-1/2 days. Vancomycin was discontinued July 17. PSA screen is 0.353 from July 15. Indirect indication that this is not prostatitis. He was transferred from ICU status to [facility] status on July 17. He has had an abdomen pelvis CT here on July 15. That was compared to July 11, and June 13. He has moderate bilateral pleural effusions. The liver is abnormal with multiple poorly defined nodules that are attributed to metastatic melanoma. Most of these are less than 1 cm but the right posterior lobe lesion is 5.5 cm. Multiple subcentimeter low-density nodules in the spleen. Gallbladder is largely collapsed, biliary system is nondilated. Kidneys normal without hydronephrosis. Bowel loops are normal. No free air. Moderate ascites is seen. Diverticulosis without diverticulitis is seen. No retroperitoneal or mesenteric adenopathy. Bladder wall thickness is normal. Radiology is suggesting that maybe they could be correlated with liver abscesses and not metastatic disease. In speaking to [facility] Infectious Disease we discussed the possibility that his liver nodules, especially the 5 cm nodule, could be an abscess. There are no fluid or air in these nodules but these are all noncontrast CTs. Essentially I am looking for a GI or source for this man's E. coli bacteremia. I repeated the CT of the abdomen and pelvis July 20. With contrast. No change from previous CTs. Even though radiology hedged and said possibly, possibly could be abscesses, they are not classic for abscess and look more like metastatic disease. Continues to have the same nodules in the spleen as well. For 2 days I discussed the case with [facility] infectious disease attending. She is in the clinic there. Dr. Jacob. She reviewed the cultures. Even though we pushed the CT scans to them, their radiologist will not be able to look at them. Due to severe limitations of their abdominal imaging faculty staff, they cannot perform reviews of scans performed outside their institution unless required for tumor board or liver transplant listings. From an infectious disease perspective she does not think there should be any additional work-up. They do not think they need to perform anything there so as such do not really need him to be transferred to higher level of care. She agrees with treating him with 2 weeks of IV antibiotic therapy in the form of ceftriaxone. If he recurs following this course then we will need to reassess what additional evaluation should be considered at that time. He would likely need repeat abdominal imaging. I reiterated that he does not have a port or central line access. I was able to share all of this with his . She is happy that he is not can to be transferred. But she is not happy with the idea that I am actually thinking that all of this may come back and she is going to have to relive this all over again. At that point, I explained, she really needs to drive to the [facility] and take him there. We do not have specialty services here that can help him. I changed cefepime to Rocephin 1 g. He does not need to be on such a broad- spectrum and we can narrow it down. For leg edema, he received Lasix 40 mg IV push 07/20. Urine output was 1750 cc with this. I had given another dose of Lasix 07/21 and urine output was 2600 cc. He will need antibiotics until approximately July 28 or July 29. Leg edema has improved w the 2 doses of lasix. Still w edema. I will hold of for today's dose. (2) Fall during current hospitalization Impression: Unwitnessed fall July 16. The patient's bed alarm was not on. The telemetry WRITING CENTER DIRECTOR thought that she noticed an abnormal irregular heart rhythm, poss VT, and informed his nurse. The nurse and MANAGER IMMUNOLOGY went in to see the patient and found him on the floor, right near the bed, head was almost against the wall, both bedrails were up. He told his nurse that he climbed over the bed rail because he had to urinate. He was able to remember that he hit his head approximately on the occiput in the middle. He denied any headache, there was no skin tear, or ne urologic deficit when I examined him. He did have a "bump" right at the back of his head but it is nontender. Hospitalist contacted the and informed her of this event. A c-collar was placed, he underwent STAT CT head and C-spine CT which were neg and c-collar was removed. An order was written to remind nursing to keep the bed alarm on when the patient is alone in the room. He has remained on telemetry because of the abnormal irregular heart rhythm that was seen associated with this fall. But after reviewing that strip, hospitalist feels that it is telemetry artifact from the motion of his body. PT and OT to continue working with him. 07/20 was a difficult day because he is so sleepy from the residual of the Ativan given to him the night before. Due to dementia, he did not remember to call for help before he climbed OOB. Ativan was discontinued and he has slowly, slowly recovered from the effects of the medicine. continues to reiterate that she can take care of him when he gets home. She has no intention of having him do rehab in a SNF. Or get care in a SNF. She also shares with me that she does not want her to go to a penitentiary facility because he will not be able to get his immunomodulating regimen for his melanoma. She has already been told that if he goes to snf, they will not receive payment for those pills. So she does not want him to go. No physical therapy on Sundays. As such physical therapy will resume tomorrow on July 24 (3) Yeast UTI Impression: He had an abnormal urinalysis at admission, culture was indicated. 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 This urine culture has not grown the E. coli which is causing the bacteremia current. PSA is very low. So I do not suspect prostatitis Plan: Cefepime was changed to Rocephin 07/20 (4) Metastatic melanoma Conclusion/Plan: He gets oral Braftovi and Mektovi for the treatment of his metastatic melanoma. He is currently being managed by Dr. Arianna Reeder at [facility]. His immunotherapy has been on hold since the first fever earlier this month (07/07), since his fever and infection has not cleared Hospitalist spoke to his Oncol, Dr Arianna Reeder at [facility] 07/17, about this hospitalization with recurrent bacteremia ([phone]) and she said that this time iv antibx should be continued longer. Unfortunately, we do not have a source therefore we do not know the exact duration for treatment. Most gram- negative bacteremia gets up to 2 weeks of therapy depending on the source. Infectious disease states that he will need it for 2 weeks of antibiotics. (5) Pacemaker Conclusion/Plan: As per history. Echocardiogram has left ventricular wall thickness normal. Ejection fraction 50 to 55%. Regional wall motion abnormalities were seen. The distal anterolateral and distal inferolateral wall segments are hypokinetic. Right ventricle normal. Pacemaker leads in the right atrium and right ventricle. Cannot exclude lead associated vegetations. Multiple device leads present. Left atrium normal. No evidence of aortic stenosis. No mitral stenosis. Mild tricuspid regurgitation. RVSP 44 mmHg. Previous hospitalist postulated the possibility of lead vegetations. That these would be the cause of his E. coli bacteremia. Plan: Because he has a history of A-fib and presented tachycardic, he remains on telem etry. But he keeps on pulling off his leads and his rhythm has been stable. I had thought to do an MRI of the head to see if some of his confusion could be from metastatic disease to the brain. But we are unable to do an MRI because of his pacemaker. I will stop the tele. (6) Hypokalemia Conclusion/Plan: Possibly from poor intake during his AMS. With today's potassium of 3.2, I will use po to supplement instead of IV rider. 40 meq given. (7) Dementia Conclusion/Plan: As per history he has mild dementia, the makes most of his decisions He is on no meds for his dementia Plan: Given the fall (see #2), he will need to have constant supervision going forward. (8) AMS (altered mental status) Conclusion/Plan: Resolved. He has presented several times with somnolence and confusion, when he has had a fever and infection. By the time he was in his ICU bed on 07/15 from the ER, he was sleepy but awoke to converse normally and was alert and oriented x3. Since that initial somnolence, he has been awake, alert. But fretful. Very forgetful. Does not want to be here. Behavior deteriorates noticeably when his leaves for the evening. And then he sounds down. He had a profound effect of the 1 dose of Ativan. Way too sedated. That was on Sunday, and today is Sunday. It took him that long to recover. I did think about doing an MRI 07/21. However he has a pacer, as such no MRI (9) Sepsis resolved. Impression: Resolved He had criteria for sepsis including tachycardia, elevated Lactic acid level, fever, tachypnea, altered mental status and abnormal urinalysis He was started on IV fluids and empiric antibx, with a presume urinary source. We started empiric IV cefepime and empiric IV Vanco, which he has now received for 2.5 days. Plan: Was on cefepime for E. coli bacteremia and that will be stopped. Vancomycin has been stopped. Rocephin Was started July 20
[2022-07-23] MEDS: ACETAMINOPHEN 1,000 MG/100 ML 1,000 MG/100 ML BAG IV PRN (18:16)
[2022-07-24] MEDS: SODIUM CHLORIDE FLUSH 0.9% 10 ML SYRINGE IVP SCH ×3 (04:23→19:01)
[2022-07-24 05:05] LABS: BASOPHILS # (AUTO) 0.2 10^3/uL (0.0-0.1); BASOPHILS % (AUTO) 1.2 %; EOSINOPHILS # (AUTO) 0.2 10^3/uL (0.0-0.7); EOSINOPHILS % (AUTO) 1.7 %; HCT - HEMATOCRIT 34.3 % (42.0-52.0); HGB - HEMOGLOBIN 10.6 g/dL (14.0-18.0); MEAN CORPUSCULAR HEMOGLOBIN 29.7 pg (27.0-31.0); MEAN CORPUSCULAR HGB CONC 30.9 g/dL (32.0-36.0); MEAN CORPUSCULAR VOLUME 96.1 fL (80.0-94.0); MEAN PLATELET VOLUME 9.1 fL (7.4-11.4); MONOCYTES # (AUTO) 0.7 10^3/uL (0.0-1.0); MONOCYTES % (AUTO) 5.9 %; NEUTROPHILS # (AUTO) 10.1 10^3/uL (1.5-6.6); NEUTROPHILS % (AUTO) 82.7 %; PLT - PLATELET COUNT 345 10^3/uL (130-450); RED BLOOD COUNT 3.57 10^6/uL (4.70-6.10); RED CELL DISTRIBUTION WIDTH 16.9 % (12.0-15.0); WHITE BLOOD COUNT 12.3 x10^3/uL (4.8-10.8)
[2022-07-24 05:15] LABS: BUN - BLOOD UREA NITROGEN 13 mg/dL (6-20); CALCIUM 8.6 mg/dL (8.5-10.3); CARBON DIOXIDE - CO2 31 mmol/L (21-32); CHLORIDE 104 mmol/L (101-111); CREATININE 0.9 mg/dL (0.6-1.2); GFR - MDRD 79 (>89); GLUCOSE 101 mg/dL (70-100); IONIZED CALCIUM IF INDICATED NO; POTASSIUM 3.8 mmol/L (3.5-5.0); SODIUM 140 mmol/L (135-145)
[2022-07-24] MEDS: MULTIVITAMIN W/MINERALS TABLET PO SCH (08:49)
[2022-07-24] MEDS: GABAPENTIN 300 MG CAPSULE PO SCH ×2 (08:50→21:18)
[2022-07-24] MEDS: APIXABAN 5 MG TABLET PO SCH ×2 (08:50→21:18)
[2022-07-24] MEDS: SACCHAROMYCES BOULARDII 250 MG CAPSULE PO SCH ×2 (08:50→19:01)
[2022-07-24] MEDS: cefTRIAXone 1 GM in SODIUM CHLORIDE 0.9% MINIBAG 100 ML IV SCH (09:39)
[2022-07-24] MEDS: ZINC OXIDE 20% OINT 30 GM TUBE TOP PRN (11:56)
[2022-07-24] MEDS: ACETAMINOPHEN 500 MG TABLET PO PRN ×2 (11:59→18:56)
--- NOTE | 2022-07-24 18:35 | PROVIDER PROGRESS NOTE ---
Subjective - Prog Note Date Prog Note Date: 07/24/22 Prog Note Time: 18:33 - Subjective Subjective: It was his birthday today. Family brought and cake for the staff. And also brought him diana food cake, strawberries and whipped cream. He is 88 years ol d. He was delighted. Yesterday and today have been good days. He has been upright, alert. Still very confused, needs constant repetitive prompting because of his forgetfulness. But from a fever perspective, encephalopathy perspective, and intake of food perspective he is doing well Current Medications - Current Medications Current Medications: Active Medications Acetaminophen (Acetaminophen 500 Mg Tablet) 500 mg PO Q4HR PRN PRN Reason: Pain or Fever > 38C (100.4F) Last Admin: 07/24/22 11:59 Dose: 500 mg Apixaban (Apixaban 5 Mg Tablet) 5 mg PO BID [facility] Last Admin: 07/24/22 08:50 Dose: 5 mg Gabapentin (Gabapentin 300 Mg Capsule) 300 mg PO BID [facility] Last Admin: 07/24/22 08:50 Dose: 300 mg Ceftriaxone Sodium 1 gm/ (Sodium Chloride) 100 mls @ 200 mls/hr IV DAILY [facility] Last Infusion: 07/24/22 10:10 Dose: Infused Loperamide HCl (Loperamide 2 Mg Capsule) 2 mg PO QID PRN PRN Reason: Diarrhea Multi-Ingredient Ointment (Zinc Oxide 20% Oint 30 Gm Tube) 1 applic TOP PRN PRN PRN Reason: Skin Care Last Admin: 07/24/22 11:56 Dose: 1 applic Multivitamins/Minerals (Multivitamin W/Minerals Tablet) 1 tab PO DAILYWM [facility] Last Admin: 07/24/22 08:49 Dose: 1 tab Ondansetron HCl (Ondansetron 4 Mg/2 Ml Vial) 4 mg IVP Q6HR PRN PRN Reason: Nausea / Vomiting Saccharomyces Boulardii (Saccharomyces Boulardii 250 Mg Capsule) 250 mg PO BIDWM [facility] Last Admin: 07/24/22 08:50 Dose: 250 mg Sodium Chloride (Sodium Chloride Flush 0.9% 10 Ml Syringe) 10 ml IVP PRN PRN PRN Reason: NEEDED PER PROVIDER ORDERS Last Admin: 07/22/22 04:26 Dose: 10 ml Sodium Chloride (Sodium Chloride Flush 0.9% 10 Ml Syringe) 10 ml IVP 0100,0900,1700 DAVID Last Admin: 07/24/22 09:39 Dose: 10 ml Apixaban [Eliquis] 5 mg PO BID 07/08/22 Gabapentin [Neurontin] 300 mg PO BID 07/08/22 Binimetinib [Mektovi] 45 mg PO BID 07/09/22 Encorafenib [Braftovi] 450 mg PO DAILY 07/09/22 Fluticasone 44 Mcg [Flovent] 2 puffs INH BID 07/16/22 amLODIPine [Norvasc] 5 mg PO DAILY 07/16/22 Objective - Vital Signs/Intake & Output Reviewed Vital Signs: Yes Vital Signs: Vital Signs x48h Temp Pulse Resp BP Pulse Ox 07/24/22 16:32 36.5 C 85 18 148/69 H 100 07/24/22 13:00 36.6 C 95 20 143/70 H 99 Intake & Output: Intake & Output 07/21/22 07/22/22 07/23/22 07/24/22 23:59 23:59 23:59 23:59 Intake Total 2270 1890 650 700 Output Total 1750 3200 875 900 Balance 520 -1310 -225 -200 - Objective General Appearance: positive: Alert, Other (Forgetful sweet elderly gentleman sitting upright in his chair. As always, wrapped in blankets because he gets so easily cold. Smiles, greets me. And tells me "it is my birthday". Does not remember who I am. Or that I see him every day.) Eyes Bilateral: positive: PERRL, EOMI ENT: positive: No signs of dehydration Neck: positive: No JVD. negative: Stiff neck Respiratory: positive: No respiratory distress. negative: Wheezes, Rales, Rhonchi Cardiovascular: positive: Regular rate & rhythm, Systolic murmur Abdomen: positive: Non-tender, No organomegaly, Nml bowel sounds, No distention Skin: positive: Warm, Dry Extremities: positive: Full ROM, Pedal edema Neurologic/Psychiatric: positive: CN's nml (2-12), Disoriented to place, D isoriented to time. negative: Motor nml (Shuffling. Weak. Working with physical therapy. But he is able to get out of bed and sit in a chair, and walk with a walker to get to a commode) - Lab Results Fish Bones: 07/24/22 04:59 07/24/22 04:59 Other Labs: Lab Results x24hrs 07/24/22 07/24/22 Range/Units 04:59 04:59 WBC 12.3 H (4.8-10.8) x10^3/uL RBC 3.57 L (4.70-6.10) 10^6/uL Hgb 10.6 L (14.0-18.0) g/dL Hct 34.3 L (42.0-52.0) % MCV 96.1 H (80.0-94.0) fL MCH 29.7 (27.0-31.0) pg MCHC 30.9 L (32.0-36.0) g/dL RDW 16.9 H (12.0-15.0) % Plt Count 345 (130-450) 10^3/uL MPV 9.1 (7.4-11.4) fL Neut # (Auto) 10.1 H (1.5-6.6) 10^3/uL Lymph # (Auto) 1.0 L (1.5-3.5) 10^3/uL [place] # (Auto) 0.7 (0.0-1.0) 10^3/uL Eos # (Auto) 0.2 (0.0-0.7) 10^3/uL Baso # (Auto) 0.2 H (0.0-0.1) 10^3/uL Absolute Nucleated RBC 0.00 x10^3/uL Nucleated RBC % 0.0 /100WBC Sodium 140 (135-145) mmol/L Potassium 3.8 (3.5-5.0) mmol/L Chloride 104 (101-111) mmol/L Carbon Dioxide 31 (21-32) mmol/L Anion Gap 5.0 L (6-13) BUN 13 (6-20) mg/dL Creatinine 0.9 (0.6-1.2) mg/dL Estimated GFR (MDRD) 79 L (>89) Glucose 101 H (70-100) mg/dL Calcium 8.6 (8.5-10.3) mg/dL Ionized Calcium NO ABX Reporting Has patient been on IV antibiotics over the past 48 hours?: Yes Sepsis Event Note (H) - Evaluation Current Stage of Sepsis: Resolved Possible source of Sepsis: positive: Genitourinary - Sepsis Criteria Sepsis Criteria: Recorded Heart Rate greater than 90 bpm, Recorded Respiratory Rate greater than 20, BIZTALK SOFTWARE DEVELOPER: altered consciousness (unrelated to primary neuro pathology), Metabolic: lactate > 2 mmol/L Assessment/Plan - Problem List (1) E coli bacteremia Impression: 07/07/22: In ER for confusion and fever. Sent home w nml labs and good response to IVF. 07/08: ER asked him to return to ER when blood cultures grew out E coli bacteremia He was then hospitalized here from 07/08 to 07/10 and got iv Ceftriaxone, which was transitioned to po Cipro. Repeat blood cultures were negative while on ceftriaxone. 07/11: Fever on Cipro so he returned to the ER. Blood cultures from that date were negative. He was monitored in the ER and Gen Surg did consult, since CT scanning of the abdomen on that ER visit demonstrated GB source suspected. So he was sent home from the ER on 07/12 with antibx changed to po Augmentin and Flagyl. 07/15/22: He took Augmentin and Flagyl but came back 07/15 with a fever at home again and is now admitted again. In the ER and for the rest of his stay he has not had fevers. Tachycardia resolved by 07/16. Two of 2 blood cultures that were drawn in the ER 07/15 have turned positive for E coli, He is pansensitive to all antibiotics for E. coli. We started empiric IV cefepime and empiric IV Vanco, which he received for 2-1/2 days. Vancomycin was discontinued July 17. PSA screen is 0.353 from July 15. Indirect i ndication that this is not prostatitis. He was transferred [facility] ICU [facility] to [facility] July [facility]. He has had an abdomen pelvis CT here on July 15. That was compared to July 11, and June 13. He has moderate bilateral pleural effusions. The liver is abnormal with multiple poorly defined nodules that are attributed to metastatic melanoma. Most of these are less than 1 cm but the right posterior lobe lesion is 5.5 cm. Multiple subcentimeter low-density nodules in the spleen. Gal lbladder is largely collapsed, biliary system is nondilated. Kidneys normal without hydronephrosis. Bowel loops are normal. No free air. Moderate ascites is seen. Diverticulosis without diverticulitis is seen. No retroperitoneal or mesenteric adenopathy. Bladder wall thickness is normal. Radiology is suggesting that maybe they could be correlated with liver abscesses and not metastatic disease. In speaking to [facility] Infectious Disease we discussed the possibility that his liver nodules, especially the 5 cm nodule, could be an abscess. There are no fluid or air in these nodules but these are all noncontrast CTs. Essentially I am looking for a GI or source for this man's E. coli bacteremia. I repeated the CT of the abdomen and pelvis July 20. With contrast. No change from previ ous CTs. Even though radiology hedged and said possibly, possibly could be abscesses, they are not classic for abscess and look more like metastatic disease. Continues to have the same nodules in the spleen as well. For 2 days I discussed the case with [facility] infectious disease attending. She is in the clinic there. Dr. Jacob. She reviewed the cultures. Even though we pushed the CT scans to them, their radiologist will not be able to look at them. Due to severe limitations of their abdominal imaging faculty staff, they cannot perform reviews of scans performed outside their institution unless required for tumor board or liver transplant listings. From an infectious disease perspective she does not think there should be any additional work-up. They do not think they need to perform anything there so as such do not really need him to be transferred to higher level of care. She agrees with treating him with 2 weeks of IV antibiotic therapy in the form of ceftriaxone. If he r ecurs following this course then we will need to reassess what additional evaluation should be considered at that time. He would likely need repeat abdominal imaging. I reiterated that he does not have a port or central line access. I was able to share all of this with his . She is happy that he is not can to be transferred. But she is not happy with the idea that I am actually thinking that all of this may come back and she is going to have to relive this all over again. At that point, I explained, she really needs to drive to the [facility] and take him there. We do not have specialty services here that can help him. I changed cefepime to Rocephin 1 g. He does not need to be on such a broad- spectrum and we can narrow it down. For leg edema, he received Lasix 40 mg IV push 07/20. Urine output was 1750 cc with this. I had given another dose of Lasix 07/21 and urine output was 2600 cc. He will need antibiotics until approximately July 28 or July 29. Leg edema has improved w the 2 doses of lasix. Still w edema. I will hold off on more doses. (2) Fall during current hospitalization Impression: Unwitnessed fall July 16. The patient's bed alarm was not on. The telemetry STORES CLERK thought that she noticed an abnormal irregular heart rhythm, poss VT, and informed his nurse. The nurse and MILK SAMPLER went in to see the patient and found him on the floor, right near the bed, head was almost against the wall, both bedrails were up. He told his nurse that he climbed over the bed rail because he had to urinate. He was able to remember that he hit his head approximately on the occiput in the middle. He denied any headache, there was no skin tear, or neurologic deficit when I examined him. He did have a "bump" right at the back of his head but it is nontender. Hospitalist contacted the and informed her of this event. A c-collar was placed, he underwent STAT CT head and C-spine CT which were neg and c-collar was removed. An order was written to remind nursing to keep the bed alarm on when the patient is alone in the room. He has remained on telemetry because of the abnormal irregular heart rhythm that was seen associated with this fall. But after reviewing that strip, hospitalist feels that it is telemetry artifact from the motion of his body. PT and OT to continue working with him. 07/20 was a difficult day because he is so sleepy from the residual of the Ativan given to him the night before. Due to dementia, he did not remember to call for help before he climbed OOB. Ativan was discontinued and he has slowly, slowly recovered from the effects of the medicine. continues to reiterate that she can take care of him when he gets home. She has no intention of having him do rehab in a SNF. Or get care in a SNF. S he also shares with me that she does not want her to go to a assisted facility because he will not be able to get his immunomodulating regimen for his melanoma. She has already been told that if he goes to alf, they will not receive payment for those pills. So she does not want him to go. Seen by PT today: Today's session consisted of functional activities to improve independence w/ transfers. Pt quite somnolent during session and having difficulty keeping eyes open. Pt requiring modAx2 for transfers using FWW. Plan to re-attempt in AM tomorrow to enable pt to be more successful in reaching his PT goals. Per daughter and RN, pt is more awake in the morning (3) Yeast UTI Impression: He had an abnormal urinalysis at admission, culture was indicated. 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 This urine culture has not grown the E. coli which is causing the bacteremia current. PSA is very low. So I do not suspect prostatitis Plan: Cefepime was changed to Rocephin 07/20 (4) Metastatic melanoma Conclusion/Plan: He gets oral Braftovi and Mektovi for the treatment of his metastatic melanoma. He is currently being managed by Dr. Arianna Reeder at [facility]. His immunotherapy has been on hold since the first fever earlier this month (07/07), since his fever and infection has not cleared Hospitalist spoke to his Oncol, Dr Arianna Reeder at [facility] 07/17, about this hospitalization with recurrent bacteremia ([phone]) and she said that this time iv antibx should be continued longer. Unfortunately, we do not have a source therefore we do not know the exact duration for treatment. Most gram- negative bacteremia gets up to 2 weeks of therapy depending on the source. Infectious disease states that he will need it for 2 weeks of antibiotics. (5) Pacemaker Conclusion/Plan: As per history. Echocardiogram has left ventricular wall thickness normal. Ejection fraction 50 to 55%. Regional wall motion abnormalities were seen. The distal anterolateral and distal inferolateral wall segments are hypokinetic. Right ventricle normal. Pacemaker leads in the right atrium and right ventricle. Cannot exclude lead associated vegetations. Multiple device leads present. Left atrium normal. No evidence of aortic stenosis. No mitral stenosis. Mild tricuspid regurgitation. RVSP 44 mmHg. Previous hospitalist postulated the possibility of lead vegetations. That these would be the cause of his E. coli bacteremia. Plan: Because he has a history of A-fib and presented tachycardic, he remains on t elemetry. But he keeps on pulling off his leads and his rhythm has been stable. I had thought to do an MRI of the head to see if some of his confusion could be from metastatic disease to the brain. But we are unable to do an MRI because of his pacemaker. Telemetry discontinued July 23 (6) Hypokalemia Conclusion/Plan: Possibly from poor intake during his AMS. He has been needing potassium supplementation about every other day. He received 40 mEq for 3.2 yesterday. Today his potassium is normal so he does not need any. (7) Dementia Conclusion/Plan: As per history he has mild dementia, the makes most of his decisions He is on no meds for his dementia Plan: Given the fall (see #2), he will need to have constant supervision going forward. (8) AMS (altered mental status) Conclusion/Plan: Resolved. He has presented several times with somnolence and confusion, when he has had a fever and infection. By the time he was in his ICU bed on 07/15 from the ER, he was sleepy but awoke to converse normally and was alert and oriented x3. Since that initial somnolence, he has been awake, alert. But fretful. Very forgetful. Does not want to be here. Behavior deteriorates noticeably when his leaves for the evening. And then he sounds down. He had a profound effect of the 1 dose of Ativan. Way too sedated. That was on Sunday, and today is Sunday. It took him that long to recover. I did think about doing an MRI 07/21. However he has a pacer, as such no MRI (9) Sepsis resolved. Impression: Resolved He had criteria for sepsis including tachycardia, elevated Lactic acid level, fever, tachypnea, altered mental status and abnormal urinalysis He was started on IV fluids and empiric antibx, with a presume urinary source. We started empiric IV cefepime and empiric IV Vanco, which he has now received for 2.5 days. Plan: Was on cefepime for E. coli bacteremia And that was stopped at the recommendation of infectious disease. Vancomycin has been stopped. Rocephin Was started July 20
[2022-07-25 05:46] LABS: BASOPHILS # (AUTO) 0.1 10^3/uL (0.0-0.1); BASOPHILS % (AUTO) 0.8 %; EOSINOPHILS # (AUTO) 0.1 10^3/uL (0.0-0.7); EOSINOPHILS % (AUTO) 0.9 %; HCT - HEMATOCRIT 33.3 % (42.0-52.0); HGB - HEMOGLOBIN 10.3 g/dL (14.0-18.0); LYMPHOCYTES # (AUTO) 0.7 10^3/uL (1.5-3.5); LYMPHOCYTES % (AUTO) 5.5 %; MEAN CORPUSCULAR HEMOGLOBIN 29.3 pg (27.0-31.0); MEAN CORPUSCULAR HGB CONC 30.9 g/dL (32.0-36.0); MEAN CORPUSCULAR VOLUME 94.6 fL (80.0-94.0); MEAN PLATELET VOLUME 9.2 fL (7.4-11.4); MONOCYTES # (AUTO) 0.8 10^3/uL (0.0-1.0); MONOCYTES % (AUTO) 6.1 %; NEUTROPHILS # (AUTO) 11.3 10^3/uL (1.5-6.6); NEUTROPHILS % (AUTO) 86.2 %; PLT - PLATELET COUNT 332 10^3/uL (130-450); RED BLOOD COUNT 3.52 10^6/uL (4.70-6.10); RED CELL DISTRIBUTION WIDTH 16.9 % (12.0-15.0); WHITE BLOOD COUNT 13.1 x10^3/uL (4.8-10.8)
[2022-07-25 05:56] LABS: BUN - BLOOD UREA NITROGEN 13 mg/dL (6-20); CALCIUM 8.4 mg/dL (8.5-10.3); CARBON DIOXIDE - CO2 31 mmol/L (21-32); CHLORIDE 100 mmol/L (101-111); CREATININE 0.9 mg/dL (0.6-1.2); GFR - MDRD 79 (>89); GLUCOSE 99 mg/dL (70-100); IONIZED CALCIUM IF INDICATED NO; POTASSIUM 3.6 mmol/L (3.5-5.0); SODIUM 140 mmol/L (135-145)
[2022-07-25] MEDS: SODIUM CHLORIDE FLUSH 0.9% 10 ML SYRINGE IVP SCH ×3 (06:50→17:53)
[2022-07-25] MEDS: cefTRIAXone 1 GM in SODIUM CHLORIDE 0.9% MINIBAG 100 ML IV SCH (08:34)
[2022-07-25] MEDS: MULTIVITAMIN W/MINERALS TABLET PO SCH (08:42)
[2022-07-25] MEDS: APIXABAN 5 MG TABLET PO SCH ×2 (08:42→21:07)
[2022-07-25] MEDS: SACCHAROMYCES BOULARDII 250 MG CAPSULE PO SCH ×2 (08:42→17:18)
[2022-07-25] MEDS: GABAPENTIN 300 MG CAPSULE PO SCH ×2 (08:42→21:07)
--- NOTE | 2022-07-25 15:57 | PROVIDER PROGRESS NOTE ---
Assessment/Plan - Problem List (1) E coli bacteremia Assessment/Plan: 07/07/22: In ER for confusion and fever. Sent home w nml labs and good response to IVF. 07/08: ER asked him to return to ER when blood cultures grew out E coli bacteremia He was then hospitalized here from 07/08 to 07/10 and got iv Ceftr iaxone, which was transitioned to po Cipro. Repeat blood cultures were negative while on ceftriaxone. 07/11: Fever on Cipro so he returned to the ER. Blood cultures from that date were negative. He was monitored in the ER and Gen Surg did consult, since CT scanning of the abdomen on that ER visit demonstrated GB source suspected. So he was sent home from the ER on 07/12 with antibx changed to po Augmentin and Flagyl. 07/15/22: He took Augmentin and Flagyl but came back 07/15 with a fever at home ag ain and is now admitted again. In the ER and for the rest of his stay he has not had fevers. Tachycardia resolved by 07/16. Two of 2 blood cultures that were drawn in the ER 07/15 have turned positive for E coli, it is pansensitive to all antibiotics for E. coli. We started empiric IV cefepime and empiric IV Vanco, which he received for 2-1/2 days. Vancomycin was discontinued July 17. PSA screen is 0.353 from July 15. Indirect indication that this is not prostatitis. He was transferred from ICU status to [facility] status on July 17 due to AMS, has come out of ICU when stable. He has had an abdomen pelvis CT here on July 15. That was compared to July 11, and June 13. He has moderate bilateral pleural effusions. The liver is abnormal with multiple poorly defined nodules that are attributed to metastatic melanoma. Most of these are less than 1 cm but the right posterior lobe lesion is 5.5 cm. Multiple subcentimeter low-density nodules in the spleen. Gallbladder is largely collapsed, biliary system is nondilated. Kidneys normal without hydronephrosis. Bowel loops are normal. No free air. Moderate ascites is seen. Diverticulosis without diverticulitis is seen. No retroperitoneal or mesenteric adenopathy. Bladder wall thickness is normal. Radiology is suggesting that maybe they could be correlated with liver abscesses and not metastatic disease. In speaking to [facility] we discussed the possibility that his liver nodules, especially the 5 cm nodule, could be an abscess. There are no fluid or air in these nodules but these are all noncontrast CTs. Essentially we were looking for a GI or source for this man's E. coli bacteremia. We did a repeat the CT of the abdomen and pelvis July 20. It was with contrast. It showed no change from previous CTs. Even though radiology hedged and said possibly, there could be abscesses, they were not classic for abscesses and look more like metastatic disease. He also continues to have the same nodules in the spleen as well. For 2 days Hospitalist discussed the case with [facility] Infectious Disease attending at the clinic there, Dr. Jacob. She reviewed the cultures. Even though we pushed the CT scans to them, their radiologist will not be able to look at them. Due to severe limitations of their abdominal imaging faculty staff, they cannot perform reviews of scans performed outside their institution unless required for tumor board or liver transplant listings. From an infectious disease perspective she does not think there should be any additional work-up. They do not think they need to perform anything there for him, so as such did not really need him to be transferred to higher level of care. She agrees with treating him with 2 weeks of IV antibiotic therapy in the form of ceftriaxone. If bacteremia recurs following this course, then we will need to reassess what additional evaluation should be done at that time. He would likely need repeat abdominal imaging. He does not have a port or central line (pacer) abcess. The last Hospitalist was able to share all of this with his . She was happy that he did not need to be transferred. But she was not happy with the idea that all of this may come back and she may have to relive this all over again. The last Hospitalist explained, if his bacteremia recurs, she really needs to drive to the [facility] and take him there. We do not have specialty services here that can help him. we changed cefepime to Rocephin 1 g. He does not need to be on such a broad- spectrum and we could narrow it down, knowing the sensitivities. He will need antibiotics until approximately July 28. (2) Leg edema For leg edema, he received Lasix 40 mg IV push 07/20. Urine output was 1750 cc with this. He had another dose of Lasix 07/21 and urine output was 2600 cc. Leg edema has improved w the 2 doses of lasix. Still w mild leg edema but we will hold off on more doses. (4) UTI Impression: He had an abnormal urinalysis at admission, culture was indicated. 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 This urine culture has not grown the E. coli which is causing the bacteremia current. PSA is very low. So we do not suspect prostatitis Plan: Cefepime was changed to Rocephin 07/20 (5) Metastatic melanoma Conclusion/Plan: He gets oral Braftovi and Mektovi for the treatment of his metastatic melanoma. He is currently being managed by Dr. Arianna Reeder at [facility]. His immunotherapy has been on hold since the first fever earlier this month (07/07), since his fever and infection has not cleared Hospitalist spoke to his Oncol, Dr Arianna Reeder at [facility] 07/17, about this h ospitalization with recurrent bacteremia ([phone]) and she said that this time iv antibx should be continued longer. Unfortunately, we do not have a source therefore we do not know the exact duration for treatment. Most gram- negative bacteremia gets up to 2 weeks of therapy depending on the source. Infectious disease stated that he will need it for 2 weeks of antibiotics. (6) Pacemaker Conclusion/Plan: As per history. Echocardiogram has left ventricular wall thickness normal. Ejection fraction 50 to 55%. Regional wall motion abnormalities were seen. The distal anterolateral and distal inferolateral wall segments are hypokinetic. Right ventricle normal. Pacemaker leads in the right atrium and right ventricle. Cannot exclude lead associated vegetations. Multiple device leads present. Left atrium normal. No evidence of aortic stenosis. No mitral stenosis. Mild tricuspid regurgitation. RVSP 44 mmHg. Plan: Because he has a history of A-fib and presented tachycardic, he was initially on telemetry. But he kept on pulling off his leads and his rhythm was stable. Telemetry was discontinued July 23 We had considered to do an MRI of the head to see if some of his confusion could be from metastatic disease to the brain. But we are unable to do an MRI because of his pacemaker. (7) Fall during current hospitalization Impression: Unwitnessed fall July 16. The patient's bed alarm was not on. The telemetry THREAD TOOL GRINDER SET UP OPERATOR thought that she noticed an abnormal irregular heart rhythm, poss VT, and inform ed his nurse. The nurse and PRODUCT FINISHER went in to see the patient and found him on the floor, right near the bed, head was almost against the wall, both bedrails were up. He told his nurse that he climbed over the bed rail because he had to urinate. He was able to remember that he hit his head approximately on the occiput in the middle. He denied any headache, there was no skin tear, or neurologic deficit when I examined him. He did have a "bump" right at the back of his head but it is nontender. Hospitalist contacted the and informed her of this event. A c-collar was placed, he underwent STAT CT head and C-spine CT which were neg and c-collar was removed. An order was written to remind nursing to keep the bed alarm on when the patient is alone in the room. He has remained on telemetry because of the abnormal irregular heart rhythm that was seen associated with this fall. But after reviewing that strip, hospitalist feels that it is telemetry artifact from the motion of his body. PT and OT to continue working with him. 07/20 was a difficult day because he is so sleepy from the residual of the Ativan given to him the night before. Due to dementia, he did not remember to call for help before he climbed OOB. Ativan was discontinued and he has slowly, slowly recovered from the effects of the medicine. continues to reiterate that she can take care of him when he gets home. She has no intention of having him do rehab in a SNF. Or get care in a SNF. She also shares with me that she does not want her to go to a jail facility because he will not be able to get his immunomodulating regimen for his melanoma. She has already been told that if he goes to detention, they will not receive payment for those pills. So she does not want him to go. Seen by PT: Today's session consisted of functional activities to improve independence w/ transfers. Pt quite somnolent during session and having difficulty keeping eyes open. Pt requiring modAx2 for transfers using FWW. Plan to re-attempt in AM tomorrow to enable pt to be more successful in reaching his PT goals. Per daughter and RN, pt is more awake in the morning (8) Hypokalemia Conclusion/Plan: Possibly from poor intake during his AMS. He has been needing potassium supplementation about every other day. He received 40 mEq for K of 3.2 Will monitor BMP intermittently. (9) Dementia Conclusion/Plan: As per history he has dementia, the makes most of his decisions. He is on no meds for his dementia (10) AMS (altered mental status) Conclusion/Plan: Resolved. He has presented several times with somnolence and confusion, when he has had a fever and infection. By the time he was in his ICU bed on 07/15 from the ER, he was sleepy but awoke to converse normally and was alert and oriented x3. Since that initial somnolence, he has been awake, alert. But very forgetful. Does not want to be here. Behavior deteriorates noticeably when his leaves for the evening. And then he Sundowns. He had a profound effect after the 1 dose of Ativan. He was way too sedated It took him 4 days to awaken and recover. We did think about doing a brain MRI on 07/21. However he has a pacer, as such no MRI can be done. (11) Sepsis Impression: Resolved At admission, he had criteria for sepsis including tachycardia, elevated Lactic acid level, fever, tachypnea, altered mental status and abnormal urinalysis He was started on IV fluids and empiric antibx, with a presume urinary source. We started empiric IV cefepime and empiric IV Vanco, now on iv Rocephin started July 20 (12) Urinary retention This was initially documented while he was in ICU. Plan: Will order removal of Brice today - Current Meds Current Meds: Current Medications Generic Name Dose Route Start Last Admin Trade Name Freq PRN Reason Stop Dose Admin Acetaminophen 500 mg 07/23/22 18:38 07/24/22 18:56 Acetaminophen 500 Mg Tablet PO 500 mg Q4HR PRN Administration Pain or Fever > 38C (100.4F) Apixaban 5 mg 07/20/22 09:00 07/25/22 08:42 Apixaban 5 Mg Tablet PO 5 mg BID DAVID Administration Gabapentin 300 mg 07/19/22 21:00 07/25/22 08:42 Gabapentin 300 Mg Capsule PO 300 mg BID DAVID Administration Ceftriaxone Sodium 1 gm/ 100 mls @ 200 mls/hr 07/21/22 09:00 07/25/22 09:04 Sodium Chloride IV Infused DAILY DAVID Infusion Multi-Ingredient Ointment 1 applic 07/17/22 21:24 07/24/22 11:56 Zinc Oxide 20% Oint 30 Gm Tube TOP 1 applic PRN PRN Administration Skin Care Multivitamins/Minerals 1 tab 07/17/22 17:00 07/25/22 08:42 Multivitamin W/Minerals Tablet PO 1 tab DAILYWM DAVID Administration Saccharomyces Boulardii 250 mg 07/22/22 17:00 07/25/22 08:42 Saccharomyces Boulardii 250 Mg Capsule PO 250 mg BIDWM DAVID Administration Sodium Chloride 10 ml 07/15/22 18:28 07/22/22 04:26 Sodium Chloride Flush 0.9% 10 Ml Syringe IVP 10 ml PRN PRN Administration NEEDED PER PROVIDER ORDERS Sodium Chloride 10 ml 07/16/22 01:00 07/25/22 08:36 Sodium Chloride Flush 0.9% 10 Ml Syringe IVP 10 ml 0100,0900,1700 DAVID Administration - Lab Result Fish Bone Diagrams: 07/25/22 05:23 07/25/22 05:23 - Additional Planning My Orders: My Active Orders 07/25/22 Home Health Referral [CONS] Routine Palliative Care Consult [CONS] Routine Subjective - Subjective Patient Reports: Resting Comfortably, No Complaints Objective Vital Signs: Vital Signs - 24 hr 07/24/22 07/24/22 07/24/22 16:32 20:10 23:06 Temperature 36.5 C 36.7 C 36.4 C L Heart Rate [ 82 80 Brachial] Heart Rate [ 85 Monitoring electrodes] Respiratory 18 16 18 Rate Blood Pressure 148/69 H 144/71 H 158/68 H [Right Brachial artery] O2 Saturation 100 98 99 07/25/22 07/25/22 07/25/22 05:00 07:50 13:35 Temperature 36.8 C 36.7 C 36.8 C Heart Rate [ 97 89 90 Brachial] Heart Rate [ Monitoring electrodes] Respiratory 18 18 18 Rate Blood Pressure 137/63 H 140/67 H 134/66 H [Right Brachial artery] O2 Saturation 95 97 99 Oxygen O2 Source Room air I&O (Last 24 Hrs): Intake and Output Totals x24h 07/23/22 07/24/2223 23:59 23:59 23:59 Intake Total 650 2460 1180 Output Total 870 1995 2810 Balance -225 1135 -1630 General: No acute distress, Other (Asleep, [place]) HEENT: Mucous membr. moist/pink Neck: Supple Neuro: Non Focal, Other (Poor memory) Cardiovascular: No murmurs Respiratory: No respiratory distress Abdomen: Soft Extremities: No clubbing, No edema, No tenderness/swelling - Results Results: Laboratory Results WBC 13.1 x10^3/uL (4.8-10.8) H 07/25/22 05:23 RBC 3.52 10^6/uL (4.70-6.10) L 07/25/22 05: Hgb 10.3 g/dL (14.0-18.0) L 07/25/22 05: Hct 33.3 % (42.0-52.0) L 07/25/22 05:23 MCV 94.6 fL (80.0-94.0) H 07/25/22 05:23 MCH 29.3 pg (27.0-31.0) 07/25/22 05:23 MCHC 30.9 g/dL (32.0-36.0) L 07/25/22 05:23 RDW 16.9 % (12.0-15.0) H 07/25/22 05:23 Plt Count 332 10^3/uL (130-450) 07/25/22 05:23 MPV 9.2 fL (7.4-11.4) 07/25/22 05:23 Neut # (Auto) 11.3 10^3/uL (1.5-6.6) H 07/25/22 05:23 Lymph # (Auto) 0.7 10^3/uL (1.5-3.5) L 07/25/22 05:23 [place] # (Auto) 0.8 10^3/uL (0.0-1.0) 07/25/22 05:23 Eos # (Auto) 0.1 10^3/uL (0.0-0.7) 07/25/22 05:23 Baso # (Auto) 0.1 10^3/uL (0.0-0.1) 07/25/22 05:23 Absolute Nucleated RBC 0.00 x10^3/uL 07/25/22 05:23 Nucleated RBC % 0.0 /100WBC 07/25/22 05:23 PT 21.4 secs (9.9-12.6) H 07/15/22 13:02 INR 2.0 (0.8-1.2) H 07/15/22 13:02 VBG pH 7.472 (7.31-7.41) H 07/23/22 05:26 Ionized Calcium 1.14 mmol/L (1.15-1.33) L 07/23/22 05:26 Sodium 140 mmol/L (135-145) 07/25/22 05:23 Potassium 3.6 mmol/L (3.5-5.0) 07/25/22 05:23 Chloride 100 mmol/L (101-111) L 07/25/22 05:23 Carbon Dioxide 31 mmol/L (21-32) 07/25/22 05:23 Anion Gap 9.0 (6-13) 07/25/22 05:23 BUN 13 mg/dL (6-20) 07/25/22 05:23 Creatinine 0.9 mg/dL (0.6-1.2) 07/25/22 05:23 Estimated GFR (MDRD) 79 (>89) L 07/25/22 05:23 Glucose 99 mg/dL (70-100) 07/25/22 05:23 Lactic Acid 1.7 mmol/L (0.5-2.2) 07/16/22 04:50 Calcium 8.4 mg/dL (8.5-10.3) L 07/25/22 05:23 Ionized Calcium NO 07/25/22 05:23 Phosphorus 2.5 mg/dL (2.5-4.6) 07/18/22 04:12 Magnesium 1.9 mg/dL (1.7-2.8) 07/18/22 04:12 Total Bilirubin 1.7 mg/dL (0.2-1.0) H 07/15/22 13:02 AST 33 IU/L (10-42) 07/15/22 13:02 ALT 24 IU/L (10-60) 07/15/22 13:02 Alkaline Phosphatase 345 IU/L (42-121) H 07/15/22 13:02 C-Reactive Protein 6.0 mg/dL (0-1.0) H 07/21/22 04:45 Total Protein 5.6 g/dL (6.7-8.2) L 07/15/22 13:02 Albumin 2.2 g/dL (3.2-5.5) L 07/15/22 13:02 Globulin 3.4 g/dL (2.1-4.2) 07/15/22 13:02 Albumin/Globulin Ratio 0.6 (1.0-2.2) L 07/15/22 13:02 PSA Screen 0.353 ng/mL (0.000-2.000) 07/15/22 13:02 Urine Color YELLOW 07/21/22 13:15 Urine Clarity CLEAR (CLEAR) 07/21/22 13:15 Urine pH 5.5 PH (5.0-7.5) 07/21/22 13:15 Ur Specific [place] 1.010 (1.002-1.030) 07/21/22 13:15 Urine Protein NEGATIVE mg/dL (NEGATIVE) 07/21/22 13:15 Urine Glucose (UA) NEGATIVE mg/dL (NEGATIVE) 07/21/22 13:15 Urine Ketones NEGATIVE mg/dL (NEGATIVE) 07/21/22 13:15 Urine Occult Blood NEGATIVE (NEGATIVE) 07/21/22 13:15 Urine Nitrite NEGATIVE (NEGATIVE) 07/21/22 13:15 Urine Bilirubin NEGATIVE (NEGATIVE) 07/21/22 13:15 Urine Urobilinogen 0.2 (NORMAL) E.U./dL (NORMAL) 07/21/22 13:15 Ur Leukocyte Esterase NEGATIVE (NEGATIVE) 07/21/22 13:15 Urine RBC 0-5 /HPF (0-5) 07/21/22 13:15 Urine WBC 0-3 /HPF (0-3) 07/21/22 13:15 Urine WBC Clumps NONE SEEN 07/15/22 13:00 Ur Squamous Epith Cells NONE SEEN (<= Few) 07/21/22 13:15 Amorphous Sediment Few /LPF 07/15/22 13:00 Urine Bacteria Rare /HPF (None Seen) 07/21/22 13:15 Urine Casts 0-2 Hyaline Casts /LPF 07/15/22 13:00 Urine Yeast PRESENT 07/15/22 13:00 Urine Culture Comments NOT INDICATED 07/21/22 13:15 Nasal Screen MRSA (PCR) NEGATIVE (NEGATIVE) 07/17/22 10:55 Stl C. diff Tox B Gene NEGATIVE (NEGATIVE) 07/16/22 17:20 Sepsis Event Note (H) - Evaluation Current Stage of Sepsis: Resolved Possible source of Sepsis: positive: Genitourinary - Sepsis Criteria Sepsis Criteria: Recorded Heart Rate greater than 90 bpm, Recorded Respiratory Rate greater than 20, MANAGER EQUITY: altered consciousness (unrelated to primary neuro pathology), Metabolic: lactate > 2 mmol/L
[2022-07-25] MEDS: ACETAMINOPHEN 500 MG TABLET PO PRN (17:18)
[2022-07-26] MEDS: SODIUM CHLORIDE FLUSH 0.9% 10 ML SYRINGE IVP SCH ×3 (00:48→17:26)
[2022-07-26] MEDS: MULTIVITAMIN W/MINERALS TABLET PO SCH (09:07)
[2022-07-26] MEDS: APIXABAN 5 MG TABLET PO SCH ×2 (09:07→20:03)
[2022-07-26] MEDS: SACCHAROMYCES BOULARDII 250 MG CAPSULE PO SCH ×2 (09:07→17:26)
[2022-07-26] MEDS: GABAPENTIN 300 MG CAPSULE PO SCH ×2 (09:07→20:03)
[2022-07-26] MEDS: cefTRIAXone 1 GM in SODIUM CHLORIDE 0.9% MINIBAG 100 ML IV SCH (09:07)
--- NOTE | 2022-07-26 18:59 | PROVIDER PROGRESS NOTE ---
Assessment/Plan - Problem List (1) E coli bacteremia Assessment/Plan: 07/07/22: In ER for confusion and fever. Sent home w nml labs and good response to IVF. 07/08: ER asked him to return to ER when blood cultures grew out E coli bacteremia He was then hospitalized here from 07/08 to 07/10 and got iv Ceftr iaxone, which was transitioned to po Cipro. Repeat blood cultures were negative while on ceftriaxone. 07/11: Fever on Cipro so he returned to the ER. Blood cultures from that date were negative. He was monitored in the ER and Gen Surg did consult, since CT scanning of the abdomen on that ER visit demonstrated GB source suspected. So he was sent home from the ER on 07/12 with antibx changed to po Augmentin and Flagyl. 07/15/22: He took Augmentin and Flagyl but came back 07/15 with a fever at home ag ain and is now admitted again. In the ER and for the rest of his stay he has not had fevers. Tachycardia resolved by 07/16. Two of 2 blood cultures that were drawn in the ER 07/15 have turned positive for E coli, it is pansensitive to all antibiotics for E. coli. We started empiric IV cefepime and empiric IV Vanco, which he received for 2-1/2 days. Vancomycin was discontinued July 17. PSA screen is 0.353 from July 15. Indirect indication that this is not prostatitis. He was transferred from ICU status to [facility] status on July 17 due to AMS, has come out of ICU when stable. He has had an abdomen pelvis CT here on July 15. That was compared to July 11, and June 13. He has moderate bilateral pleural effusions. The liver is abnormal with multiple poorly defined nodules that are attributed to metastatic melanoma. Most of these are less than 1 cm but the right posterior lobe lesion is 5.5 cm. Multiple subcentimeter low-density nodules in the spleen. Gallbladder is largely collapsed, biliary system is nondilated. Kidneys normal without hydronephrosis. Bowel loops are normal. No free air. Moderate ascites is seen. Diverticulosis without diverticulitis is seen. No retroperitoneal or mesenteric adenopathy. Bladder wall thickness is normal. Radiology is suggesting that maybe they could be correlated with liver abscesses and not metastatic disease. In speaking to [facility] Infectious Disease we discussed the possibility that his liver nodules, especially the 5 cm nodule, could be an abscess. There are no fluid or air in these nodules but these are all noncontrast CTs. Essentially we were looking for a GI or source for this man's E. coli bacteremia. We did a repeat the CT of the abdomen and pelvis July 20. It was with contrast. It showed no change from previous CTs. Even though radiology hedged and said possibly, there could be abscesses, they were not classic for abscesses and look more like metastatic disease. He also continues to have the same nodules in the spleen as well. The last Hospitalist discussed the case with [facility] Infectious Disease attending at the clinic there, Dr. Jacob. She reviewed the cultures. Even though we pushed the CT scans to them, their radiologist will not be able to look at them. Due to severe limitations of their abdominal imaging faculty staff, they cannot perform reviews of scans performed outside their institution unless required for tumor board or liver transplant listings. From an infectious disease perspective she does not think there should be any additional work-up. They do not think they need to perform anything there for him, so as such did not really need him to be transferred to higher level of care. She agrees with treating him with 2 weeks of IV antibiotic therapy in the form of ceftriaxone. If bacteremia recurs following this course, then we will need to reassess what additional evaluation should be done at that time. He would likely need repeat abdominal imaging. He does not have a port or central line (pacer) abcess. The last Hospitalist was able to share all of this with his . She was happy that he did not need to be transferred. But she was not happy with the idea that all of this may come back and she may have to relive this all over again. The last Hospitalist explained, if his bacteremia recurs, she really needs to drive him to the [facility] and take him there. We do not have specialty services here that can help him. We changed cefepime to Rocephin 1 g on 07/20. He did not need to be on such a broad-spectrum and we could narrow it down, knowing the sensitivities. He will need antibiotics until approximately July 28. (2) Leg edema For leg edema, he received Lasix 40 mg IV push 07/20. Urine output was 1750 cc with this. He had another dose of Lasix 07/21 and urine output was 2600 cc. Leg edema has improved w the 2 doses of lasix. Still w mild leg edema but we will hold off on more doses. (4) UTI Impression: He had an abnormal urinalysis at admission, culture was indicated. 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 This urine culture has not grown the E. coli which is causing the bacteremia current. PSA is very low. So we do not suspect prostatitis Plan: Cefepime was changed to Rocephin 07/20 (5) Metastatic melanoma Conclusion/Plan: He gets oral Braftovi and Mektovi for the treatment of his metastatic melanoma. He is currently being managed by Dr. Arianna Reeder at [facility]. His immunotherapy has been on hold since the first fever earlier this month (07/07), since his fever and infection has not cleared Hospitalist spoke to his Oncol, Dr Arianna Reeder at [facility] 07/17, about this hospitalization with recurrent bacteremia ([phone]) and she said that this time iv antibx should be continued longer. Unfortunately, we do not have a source therefore we do not know the exact duration for treatment. Most gram- negative bacteremia gets up to 2 weeks of therapy depending on the source. Infectious disease stated that he will need it for 2 weeks of antibiotics. (6) Pacemaker Conclusion/Plan: As per history. Echocardiogram has left ventricular wall thickness normal. Ejection fraction 50 to 55%. Regional wall motion abnormalities were seen. The distal anterolateral and distal inferolateral wall segments are hypokinetic. Right ventricle normal. Pacemaker leads in the right atrium and right ventricle. Cannot exclude lead associated vegetations. Multiple device leads present. Left atrium normal. No evidence of aortic stenosis. No mitral stenosis. Mild tricuspid regurgitation. RVSP 44 mmHg. Plan: Because he has a history of A-fib and presented tachycardic, he was initially on telemetry. But he kept on pulling off his leads and his rhythm was stable. Telemetry was discontinued July 23 We had considered to do an MRI of the head to see if some of his confusion could be from metastatic disease to the brain. But we are unable to do an MRI because of his pacemaker. (7) Fall during current hospitalization Impression: Unwitnessed fall July 16. The patient's bed alarm was not on. The telemetry LENS FABRICATING MACHINE TENDER thought that she noticed an abnormal irregular heart rhythm, poss VT, and informed his nurse. The nurse and HOOF TRIMMER went in to see the patient and found him on the floor, right near the bed, head was almost against the wall, both bedrails were up. He told his nurse that he climbed over the bed rail because he had to urinate. He was able to remember that he hit his head approximately on the occiput in the middle. He denied any headache, there was no skin tear, or neurologic deficit when I examined him. He did have a "bump" right at the back of his head but it is nontender. Hospitalist contacted the and informed her of this event. A c-collar was placed, he underwent STAT CT head and C-spine CT which were neg and c-collar was removed. An order was written to remind nursing to keep the bed alarm on when the patient is alone in the room. He has remained on telemetry because of the abnormal irregular heart rhythm that was seen associated with this fall. But after reviewing that strip, hospitalist feels that it is telemetry artifact from the motion of his body. PT and OT to continue working with him. 07/20 was a difficult day because he is so sleepy from the residual of the Ativan given to him the night before. Due to dementia, he did not remember to call for help before he climbed OOB. Ativan was discontinued and he has slowly, slowly recovered from the effects of the medicine. continues to reiterate that she can take care of him when he gets home. She has no intention of having him do rehab in a SNF. Or get care in a SNF. She also shares with me that she does not want her to go to a retirement facility because he will not be able to get his immunomodulating regimen for his melanoma. She has already been told that if he goes to longterm, they will not receive payment for those pills. So she does not want him to go. Seen by PT: Today's session consisted of functional activities to improve independence w/ transfers. Pt quite somnolent during session and having difficulty keeping eyes open. Pt requiring modAx2 for transfers using FWW. Plan to re-attempt in AM tomorrow to enable pt to be more successful in reaching his PT goals. Per daughter and RN, pt is more awake in the morning (8) Hypokalemia Conclusion/Plan: Possibly from poor intake during his AMS. He has been needing potassium supplementation about every other day. He received 40 mEq for K of 3.2 Will monitor BMP intermittently. (9) Dementia Conclusion/Plan: As per history he has dementia, the makes most of his decisions. He is on no meds for his dementia (10) AMS (altered mental status) Conclusion/Plan: Resolved. He has presented several times with somnolence and confusion, when he has had a fever and infection. By the time he was in his ICU bed on 07/15 from the ER, he was sleepy but awoke to converse normally and was alert and oriented x3. Since that initial somnolence, he has been awake, alert. But very forgetful. Does not want to be here. Behavior deteriorates noticeably when his leaves for the evening. And then he Sundowns. He had a profound effect after the 1 dose of Ativan. He was way too sedated It took him 4 days to awaken and recover. We did think about doing a brain MRI on 07/21. However he has a pacer, as such no MRI can be done. (11) Sepsis Impression: Resolved At admission, he had criteria for sepsis including tachycardia, elevated Lactic acid level, fever, tachypnea, altered mental status and abnormal urinalysis He was started on IV fluids and empiric antibx, with a presume urinary source. We started empiric IV cefepime and empiric IV Vanco, now on iv Rocephin started July 20 (12) Urinary retention This was initially documented while he was in ICU. Brice was removed 07/25 - Current Meds Current Meds: Current Medications Generic Name Dose Route Start Last Admin Trade Name Freq PRN Reason Stop Dose Admin Acetaminophen 500 mg 07/23/22 18:38 07/25/22 17:18 Acetaminophen 500 Mg Tablet PO 500 mg Q4HR PRN Administration Pain or Fever > 38C (100.4F) Apixaban 5 mg 07/20/22 09:00 07/26/22 09:07 Apixaban 5 Mg Tablet PO 5 mg BID DAVID Administration Gabapentin 300 mg 07/19/22 21:00 07/26/22 09:07 Gabapentin 300 Mg Capsule PO 300 mg BID DAVID Administration Ceftriaxone Sodium 1 gm/ 100 mls @ 200 mls/hr 07/21/22 09:00 07/26/22 09:37 Sodium Chloride IV Infused DAILY DAVID Infusion Multi-Ingredient Ointment 1 applic 07/17/22 21:24 07/24/22 11:56 Zinc Oxide 20% Oint 30 Gm Tube TOP 1 applic PRN PRN Administration Skin Care Multivitamins/Minerals 1 tab 07/17/22 17:00 07/26/22 09:07 Multivitamin W/Minerals Tablet PO 1 tab DAILYWM DAVID Administration Saccharomyces Boulardii 250 mg 07/22/22 17:00 07/26/22 17:26 Saccharomyces Boulardii 250 Mg Capsule PO 250 mg BIDWM DAVID Administration Sodium Chloride 10 ml 07/15/22 18:28 07/22/22 04:26 Sodium Chloride Flush 0.9% 10 Ml Syringe IVP 10 ml PRN PRN Administration NEEDED PER PROVIDER ORDERS Sodium Chloride 10 ml 07/16/22 01:00 07/26/22 17:26 Sodium Chloride Flush 0.9% 10 Ml Syringe IVP 10 ml 0100,0900,1700 DAVID Administration - Lab Result Fish Bone Diagrams: 07/25/22 05:23 07/25/22 05:23 Subjective - Subjective Patient Reports: No Complaints Nursing Reports: Other (Was trying to climb OOB, between the bed rail and foot of bed.) Objective Vital Signs: Vital Signs - 24 hr 07/25/22 07/26/22 07/26/22 23:36 08:05 16:11 Temperature 36.7 C 37.0 C 37.0 C Heart Rate [ 84 85 88 Brachial] Respiratory 16 18 20 Rate Blood Pressure 147/74 H 147/71 H 154/72 H [Right Brachial artery] O2 Saturation 98 97 98 Oxygen O2 Source Room air I&O (Last 24 Hrs): Intake and Output Totals x24h 07/24/22 07/25/22 07/26/22 23:59 23:59 23:59 Intake Total 2460 1620 1654 Output Total 1325 2960 300 Balance 1135 -1340 1354 General: Alert, No acute distress HEENT: Mucous membr. moist/pink, Other (Cachectic, eyes sunken) Neck: Supple Neuro: Alert, Disoriented Cardiovascular: No murmurs Respiratory: No respiratory distress Abdomen: Soft Extremities: No clubbing, Other (Trace-1+ edema) - Results Results: Laboratory Results WBC 13.1 x10^3/uL (4.8-10.8) H 07/25/22 05:23 RBC 3.52 10^6/uL (4.70-6.10) L 07/25/22 05:23 Hgb 10.3 g/dL (14.0-18.0) L 07/25/22 05:23 Hct 33.3 % (42.0-52.0) L 07/25/22 05:23 MCV 94.6 fL (80.0-94.0) H 07/25/22 05:23 MCH 29.3 pg (27.0-31.0) 07/25/22 05: MCHC 30.9 g/dL (32.0-36.0) L 07/25/22 05: RDW 16.9 % (12.0-15.0) H 07/25/22 05:23 Plt Count 332 10^3/uL (130-450) 07/25/22 05: MPV 9.2 fL (7.4-11.4) 07/25/22 05:23 Neut # (Auto) 11.3 10^3/uL (1.5-6.6) H 07/25/22 05:23 Lymph # (Auto) 0.7 10^3/uL (1.5-3.5) L 07/25/22 05:23 [place] # (Auto) 0.8 10^3/uL (0.0-1.0) 07/25/22 05:23 Eos # (Auto) 0.1 10^3/uL (0.0-0.7) 07/25/22 05:23 Baso # (Auto) 0.1 10^3/uL (0.0-0.1) 07/25/22 05:23 Absolute Nucleated RBC 0.00 x10^3/uL 07/25/22 05: Nucleated RBC % 0.0 /100WBC 07/25/22 05:23 PT 21.4 secs (9.9-12.6) H 07/15/22 13:02 INR 2.0 (0.8-1.2) H 07/15/22 13:02 VBG pH 7.472 (7.31-7.41) H 07/23/22 05:26 Ionized Calcium 1.14 mmol/L (1.15-1.33) L 07/23/22 05:26 Sodium 140 mmol/L (135-145) 07/25/22 05:23 Potassium 3.6 mmol/L (3.5-5.0) 07/25/22 05:23 Chloride 100 mmol/L (101-111) L 07/25/22 05:23 Carbon Dioxide 31 mmol/L (21-32) 07/25/22 05:23 Anion Gap 9.0 (6-13) 07/25/22 05:23 BUN 13 mg/dL (6-20) 07/25/22 05:23 Creatinine 0.9 mg/dL (0.6-1.2) 07/25/22 05:23 Estimated GFR (MDRD) 79 (>89) L 07/25/22 05:23 Glucose 99 mg/dL (70-100) 07/25/22 05:23 Lactic Acid 1.7 mmol/L (0.5-2.2) 07/16/22 04:50 Calcium 8.4 mg/dL (8.5-10.3) L 07/25/22 05:23 Ionized Calcium NO 07/25/22 05:23 Phosphorus 2.5 mg/dL (2.5-4.6) 07/18/22 04:12 Magnesium 1.9 mg/dL (1.7-2.8) 07/18/22 04:12 Total Bilirubin 1.7 mg/dL (0.2-1.0) H 07/15/22 13:02 AST 33 IU/L (10-42) 07/15/22 13:02 ALT 24 IU/L (10-60) 07/15/22 13:02 Alkaline Phosphatase 345 IU/L (42-121) H 07/15/22 13:02 C-Reactive Protein 6.0 mg/dL (0-1.0) H 07/21/22 04:45 Total Protein 5.6 g/dL (6.7-8.2) L 07/15/22 13:02 Albumin 2.2 g/dL (3.2-5.5) L 07/15/22 13:02 Globulin 3.4 g/dL (2.1-4.2) 07/15/22 13:02 Albumin/Globulin Ratio 0.6 (1.0-2.2) L 07/15/22 13:02 PSA Screen 0.353 ng/mL (0.000-2.000) 07/15/22 13:02 Urine Color YELLOW 07/21/22 13:15 Urine Clarity CLEAR (CLEAR) 07/21/22 13:15 Urine pH 5.5 PH (5.0-7.5) 07/21/22 13:15 Ur Specific [place] 1.010 (1.002-1.030) 07/21/22 13:15 Urine Protein NEGATIVE mg/dL (NEGATIVE) 07/21/22 13:15 Urine Glucose (UA) NEGATIVE mg/dL (NEGATIVE) 07/21/22 13:15 Urine Ketones NEGATIVE mg/dL (NEGATIVE) 07/21/22 13:15 Urine Occult Blood NEGATIVE (NEGATIVE) 07/21/22 13:15 Urine Nitrite NEGATIVE (NEGATIVE) 07/21/22 13:15 Urine Bilirubin NEGATIVE (NEGATIVE) 07/21/22 13:15 Urine Urobilinogen 0.2 (NORMAL) E.U./dL (NORMAL) 07/21/22 13:15 Ur Leukocyte Esterase NEGATIVE (NEGATIVE) 07/21/22 13:15 Urine RBC 0-5 /HPF (0-5) 07/21/22 13:15 Urine WBC 0-3 /HPF (0-3) 07/21/22 13:15 Urine WBC Clumps NONE SEEN 07/15/22 13:00 Ur Squamous Epith Cells NONE SEEN (<= Few) 07/21/22 13:15 Amorphous Sediment Few /LPF 07/15/22 13:00 Urine Bacteria Rare /HPF (None Seen) 07/21/22 13:15 Urine Casts 0-2 Hyaline Casts /LPF 07/15/22 13:00 Urine Yeast PRESENT 07/15/22 13:00 Urine Culture Comments NOT INDICATED 07/21/22 13:15 Nasal Screen MRSA (PCR) NEGATIVE (NEGATIVE) 07/17/22 10:55 Stl C. diff Tox B Gene NEGATIVE (NEGATIVE) 07/16/22 17:20 Sepsis Event Note (H) - Evaluation Current Stage of Sepsis: Resolved Possible source of Sepsis: positive: Genitourinary - Sepsis Criteria Sepsis Criteria: Recorded Heart Rate greater than 90 bpm, Recorded Respiratory Rate greater than 20, NETWORK OPERATIONS SPECIALIST: altered consciousness (unrelated to primary neuro pathology), Metabolic: lactate > 2 mmol/L
[2022-07-27] MEDS: SODIUM CHLORIDE FLUSH 0.9% 10 ML SYRINGE IVP SCH ×4 (01:14→23:36)
--- NOTE | 2022-07-27 08:00 | PROVIDER PROGRESS NOTE ---
Assessment/Plan - Problem List (1) E coli bacteremia Assessment/Plan: 07/07/22: In ER for confusion and fever. Sent home w nml labs and good response to IVF. 07/08: ER asked him to return to ER when blood cultures grew out E coli bacteremia He was then hospitalized here from 07/08 to 07/10 and got iv Ceftr iaxone, which was transitioned to po Cipro. Repeat blood cultures were negative while on ceftriaxone. 07/11: Fever on Cipro so he returned to the ER. Blood cultures from that date were negative. He was monitored in the ER and Gen Surg did consult, since CT scanning of the abdomen on that ER visit demonstrated GB source suspected. So he was sent home from the ER on 07/12 with antibx changed to po Augmentin and Flagyl. 07/15/22: He took Augmentin and Flagyl but came back 07/15 with a fever at home ag ain and is now admitted again. In the ER and for the rest of his stay he has not had fevers. Tachycardia resolved by 07/16. Two of 2 blood cultures that were drawn in the ER 07/15 have turned positive for E coli, it is pansensitive to all antibiotics for E. coli. We started empiric IV cefepime and empiric IV Vanco, which he received for 2-1/2 days. Vancomycin was discontinued July 17. PSA screen is 0.353 from July 15. Indirect indication that this is not prostatitis. He was transferred from ICU status to MedSur status on July 17 due to AMS, has come out of ICU when stable. He has had an abdomen pelvis CT here on July 15. That was compared to July 11, and June 13. He has moderate bilateral pleural effusions. The liver is abnormal with multiple poorly defined nodules that are attributed to metastatic melanoma. Most of these are less than 1 cm but the right posterior lobe lesion is 5.5 cm. Multiple subcentimeter low-density nodules in the spleen. Gallbladder is largely collapsed, biliary system is nondilated. Kidneys normal without hydronephrosis. Bowel loops are normal. No free air. Moderate ascites is seen. Diverticulosis without diverticulitis is seen. No retroperitoneal or mesenteric adenopathy. Bladder wall thickness is normal. Radiology is suggesting that maybe they could be correlated with liver abscesses and not metastatic disease. In speaking to [facility] Infectious Disease we discussed the possibility that his liver nodules, especially the 5 cm nodule, could be an abscess. There are no fluid or air in these nodules but these are all noncontrast CTs. Essentially we were looking for a GI or source for this man's E. coli bacteremia. We did a repeat the CT of the abdomen and pelvis July 20. It was with contrast. It showed no change from previous CTs. Even though radiology hedged and said possibly, there could be abscesses, they were not classic for abscesses and look more like metastatic disease. He also continues to have the same nodules in the spleen as well. The last Hospitalist discussed the case with [facility] Infectious Disease attending at the clinic there, Dr. Jacob. She reviewed the cultures. Even though we pushed the CT scans to them, their radiologist will not be able to look at them. Due to severe limitations of their abdominal imaging faculty staff, they cannot perform reviews of scans performed outside their institution unless required for tumor board or liver transplant listings. From an infectious disease perspective she does not think there should be any additional work-up. They do not think they need to perform anything there for him, so as such did not really need him to be transferred to higher level of care. She agrees with treating him with 2 weeks of IV antibiotic therapy in the form of ceftriaxone. If bacteremia recurs following this course, then we will need to reassess what additional evaluation should be done at that time. He would likely need repeat abdominal imaging. He does not have a port or central line (pacer) abcess. Hospitalist spoke to his Oncol, Dr Arianna Reeder at [facility] 07/17, about this hospitalization with recurrent bacteremia ([phone]) and she said that this time iv antibx should be continued longer. Unfortunately, we do not have a source therefore we do not know the exact duration for treatment. Most gram- negative bacteremia gets up to 2 weeks of therapy depending on the source. Infectious disease stated that he will need it for 2 weeks of antibiotics. The last Hospitalist was able to share all of this with his . She was happy that he did not need to be transferred. But she was not happy with the idea that all of this may come back and she may have to relive this all over again. The last Hospitalist explained, if his bacteremia recurs, she really needs to drive him to the [facility] and take him there. We do not have specialty services here that can help him. We changed cefepime to Rocephin 1 g on 07/20. He did not need to be on such a broad-spectrum and we could narrow it down, knowing the sensitivities. He will need antibiotics until approximately July 28. (2) Urinary retention This was initially documented while he was in ICU and a Brice was placed. Brice was removed 07/25. Overnight for , he had frequent small voids and a postvoid bladder scan showed 585 mL. A straight cath was then performed, ordered by telemedicine. Post cath irrigation the bladder scan showed 380 mL. Possibly his prostate is enlarged and this could also have been the source of his UTI and bacteremia Plan: We will start tamsulosin We will monitor his bladder scans closely today since he may have to be disc harged with a Brice, since discharge is planned for tomorrow (3) Lethargy Yesterday and today he just wants to sleep, is less willing to participate with PT and OT. I spoke to the and daughter at bedside today and they notices this too. Plan: I reviewed all his meds to decrease any sedatives and will change the gabapentin from twice daily to daily (4) Metastatic melanoma Conclusion/Plan: He gets oral Braftovi and Mektovi for the treatment of his metastatic melanoma. He is currently being managed by Dr. Arianna Reeder at [facility]. His immunotherapy has been on hold since the first fever earlier this month (07/07), since his fever and infection has not cleared. I spoke to his Oncol, Dr Arianna Reeder at [facility] 07/17, about this hospitalization with recurrent bacteremia ([phone]) and she said that this time iv antibx should be continued longer. (5) Dementia Conclusion/Plan: As per history he has dementia, the makes most of his decisions. He is on no meds for his dementia He is able to work with PT and OT but needs a lot of cueing. He also possibly 's when the leaves, she spends most of the day with him here. I have spoken to her in the past about him needing supervision at home and to hire caregivers so that she can be away from him part of the day Plan: We will ask for social work to assure there will be caregivers 13/11 in his house, since his tentative discharge is planned for tomorrow (6) Fall during current hospitalization Impression: Unwitnessed fall July 16. The patient's bed alarm was not on. The telemetry SWITCHBOARD AND CONTROL ROOM OPERATOR thought that she noticed an abnormal irregular heart rhythm, poss VT, and i nformed his nurse. The nurse and PRINTED CIRCUIT BOARDS BEVELER went in to see the patient and found him on the floor, right near the bed, head was almost against the wall, both bedrails were up. He told his nurse that he climbed over the bed rail because he had to urinate. He was able to remember that he hit his head approximately on the occiput in the middle. He denied any headache, there was no skin tear, or neurologic deficit when I examined him. He did have a "bump" right at the back of his head but it is nontender. Hospitalist contacted the and informed her of this event. A c-collar was placed, he underwent STAT CT head and C-spine CT which were neg and c-collar was removed. An order was written to remind nursing to keep the bed alarm on when the patient is alone in the room. He has remained on telemetry because of the abnormal irregular heart rhythm that was seen associated with this fall. But after reviewing that strip, hospitalist feels that it is telemetry artifact from the motion of his body. PT and OT to continue working with him. 07/20 was a difficult day because he is so sleepy from the residual of the Ativan given to him the night before. Due to dementia, he did not remember to call for help before he climbed OOB. Ativan was discontinued and he has slowly, slowly recovered from the effects of the medicine. continues to reiterate that she can take care of him when he gets home. She has no intention of having him do rehab in a SNF. Or get care in a SNF. She also shares with me that she does not want her to go to a intermediate facility because he will not be able to get his immunomodulating regimen for his melanoma. She has already been told that if he goes to correction, they will not receive payment for those pills. So she does not want him to go. When seen by PT: Today's session consisted of functional activities to improve independence w/ transfers. Pt quite somnolent during session and having difficulty keeping eyes open. Pt requiring modAx2 for transfers using FWW. Plan to re-attempt in AM tomorrow to enable pt to be more successful in reaching his PT goals. Per daughter and RN, pt is more awake in the morning (7) Hypokalemia Conclusion/Plan: Possibly from poor intake during his AMS. He has been needing potassium supplementation about every other day. He received 40 mEq for K of 3.2 Will monitor BMP intermittently. (8) Pacemaker Conclusion/Plan: As per history. Echocardiogram has left ventricular wall thickness normal. Ejection fraction 50 to 55%. Regional wall motion abnormalities were seen. The distal anterolateral and distal inferolateral wall segments are hypokinetic. Right ventricle normal. Pacemaker leads in the right atrium and right ventricle. Cannot exclude lead associated vegetations. Multiple device leads p resent. Left atrium normal. No evidence of aortic stenosis. No mitral stenosis. Mild tricuspid regurgitation. RVSP 44 mmHg. Plan: Because he has a history of A-fib and presented tachycardic, he was initially on telemetry. But he kept on pulling off his leads, due to dementia, and his rhythm was stable, thus telemetry was discontinued July 23 We had considered to do an MRI of the head to see if some of his confusion could be from metastatic disease to the brain. But we are unable to do an MRI because of his pacemaker. (9) Leg edema For leg edema, he received Lasix 40 mg IV push 07/20. Urine output was 1750 cc with this. He had another dose of Lasix 07/21 and urine output was 2600 cc. Leg edema improved w the 2 doses of lasix. His leg edema is returning An Echo was done this admission and it did not show cor pulmonale Plan: Will restart Lasix today and at Dc h will plan to give Lasix Sunday only (10) AMS (altered mental status) Conclusion/Plan: Resolved. He has presented several times with somnolence and confusion, when he has had a fever and infection. By the time he was in his ICU bed on 07/15 from the ER, he was sleepy but awoke to converse normally and was alert and oriented x3. Since that initial somnolence, he has been awake, alert. But very forgetful. Does not want to be here. Behavior deteriorates noticeably when his leaves for the evening. And then he Sundowns. He had a profound effect after the 1 dose of Ativan. He was way too sedated It took him 4 days to awaken and recover. We did think about doing a brain MRI on 07/21. However he has a pacer, as such no MRI can be done. (11) Sepsis Impression: Resolved At admission, he had criteria for sepsis including tachycardia, elevated Lactic acid level, fever, tachypnea, altered mental status and abnormal urinalysis He was started on IV fluids and empiric antibx, with a presume urinary source. We started empiric IV cefepime and empiric IV Vanco, now on iv Rocephin started July 20 (12) Yeast UTI Impression: He had an abnormal urinalysis at admission, culture was indicated. 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 This urine culture has not grown the E. coli which is causing the bacteremia cu rrent. PSA is very low. So we did not suspect prostatitis Plan: Cefepime was changed to Rocephin 07/20 - Current Meds Current Meds: Current Medications Generic Name Dose Route Start Last Admin Trade Name Freq PRN Reason Stop Dose Admin Acetaminophen 500 mg 07/23/22 18:38 07/25/22 17:18 Acetaminophen 500 Mg Tablet PO 500 mg Q4HR PRN Administration Pain or Fever > 38C (100.4F) Apixaban 5 mg 07/20/22 09:00 07/26/22 20:03 Apixaban 5 Mg Tablet PO 5 mg BID DAVID Administration Gabapentin 300 mg 07/19/22 21:00 07/26/22 20:03 Gabapentin 300 Mg Capsule PO 300 mg BID DAVID Administration Ceftriaxone Sodium 1 gm/ 100 mls @ 200 mls/hr 07/21/22 09:00 07/26/22 09:37 Sodium Chloride IV Infused DAILY DAVID Infusion Multi-Ingredient Ointment 1 applic 07/17/22 21:24 07/24/22 11:56 Zinc Oxide 20% Oint 30 Gm Tube TOP 1 applic PRN PRN Administration Skin Care Multivitamins/Minerals 1 tab 07/17/22 17:00 07/26/22 09:07 Multivitamin W/Minerals Tablet PO 1 tab DAILYWM DAVID Administration Saccharomyces Boulardii 250 mg 07/22/22 17:00 07/26/22 17:26 Saccharomyces Boulardii 250 Mg Capsule PO 250 mg BIDWM DAVID Administration Sodium Chloride 10 ml 07/15/22 18:28 07/22/22 04:26 Sodium Chloride Flush 0.9% 10 Ml Syringe IVP 10 ml PRN PRN Administration NEEDED PER PROVIDER ORDERS Sodium Chloride 10 ml 07/16/22 01:00 07/27/22 01:14 Sodium Chloride Flush 0.9% 10 Ml Syringe IVP 10 ml 0100,0900,1700 DAVID Administration - Lab Result Fish Bone Diagrams: 07/27/22 08:41 07/27/22 08:41 - Additional Planning My Orders: My Active Orders 07/27/22 09:00 Tamsulosin [Flomax] 0.4 mg PO DAILY Objective Vital Signs: Vital Signs - 24 hr 07/26/22 07/26/22 07/26/22 08:05 16:11 23:44 Temperature 37.0 C 37.0 C 36.6 C Heart Rate [ 85 88 91 Brachial] Respiratory 18 20 18 Rate Blood Pressure 147/71 H 154/72 H 152/75 H [Right Brachial artery] O2 Saturation 97 98 94 07/27/22 07:25 Temperature 36.5 C Heart Rate [ 85 Brachial] Respiratory 18 Rate Blood Pressure 145/69 H [Right Brachial artery] O2 Saturation 99 Oxygen O2 Source Room air I&O (Last 24 Hrs): Intake and Output Totals x24h 07/25/22 07/26/22 07/27/22 23:59 23:59 23:59 Intake Total 1620 1754 Output Total 2960 350 575 Balance -1340 1404 -575 General: Other (Lethargic, currently asleep. His color is ashen.) HEENT: Mucous membr. moist/pink Neck: Supple Neuro: Alert, Disoriented, Non Focal Cardiovascular: No murmurs Respiratory: No respiratory distress Abdomen: Soft, No tenderness Extremities: Other (1+ edema to mid-shins) - Results Results: Laboratory Results WBC 13.1 x10^3/uL (4.8-10.8) H 07/25/22 05:23 RBC 3.52 10^6/uL (4.70-6.10) L 07/25/22 05:23 Hgb 10.3 g/dL (14.0-18.0) L 07/25/22 05:23 Hct 33.3 % (42.0-52.0) L 07/25/22 05:23 MCV 94.6 fL (80.0-94.0) H 07/25/22 05:23 MCH 29.3 pg (27.0-31.0) 07/25/22 05: MCHC 30.9 g/dL (32.0-36.0) L 07/25/22 05: RDW 16.9 % (12.0-15.0) H 07/25/22 05:23 Plt Count 332 10^3/uL (130-450) 07/25/22 05:23 MPV 9.2 fL (7.4-11.4) 07/25/22 05:23 Neut # (Auto) 11.3 10^3/uL (1.5-6.6) H 07/25/22 05:23 Lymph # (Auto) 0.7 10^3/uL (1.5-3.5) L 07/25/22 05:23 Hanson # (Auto) 0.8 10^3/uL (0.0-1.0) 07/25/22 05:23 Eos # (Auto) 0.1 10^3/uL (0.0-0.7) 07/25/22 05:23 Baso # (Auto) 0.1 10^3/uL (0.0-0.1) 07/25/22 05:23 Absolute Nucleated RBC 0.00 x10^3/uL 07/25/22 05:23 Nucleated RBC % 0.0 /100WBC 07/25/22 05:23 PT 21.4 secs (9.9-12.6) H 07/15/22 13:02 INR 2.0 (0.8-1.2) H 07/15/22 13:02 VBG pH 7.472 (7.31-7.41) H 07/23/22 05:26 Ionized Calcium 1.14 mmol/L (1.15-1.33) L 07/23/22 05:26 Sodium 140 mmol/L (135-145) 07/25/22 05:23 Potassium 3.6 mmol/L (3.5-5.0) 07/25/22 05:23 Chloride 100 mmol/L (101-111) L 07/25/22 05:23 Carbon Dioxide 31 mmol/L (21-32) 07/25/22 05:23 Anion Gap 9.0 (6-13) 07/25/22 05:23 BUN 13 mg/dL (6-20) 07/25/22 05:23 Creatinine 0.9 mg/dL (0.6-1.2) 07/25/22 05:23 Estimated GFR (MDRD) 79 (>89) L 07/25/22 05:23 Glucose 99 mg/dL (70-100) 07/25/22 05:23 Lactic Acid 1.7 mmol/L (0.5-2.2) 07/16/22 04:50 Calcium 8.4 mg/dL (8.5-10.3) L 07/25/22 05:23 Ionized Calcium NO 07/25/22 05:23 Phosphorus 2.5 mg/dL (2.5-4.6) 07/18/22 04:12 Magnesium 1.9 mg/dL (1.7-2.8) 07/18/22 04:12 Total Bilirubin 1.7 mg/dL (0.2-1.0) H 07/15/22 13:02 AST 33 IU/L (10-42) 07/15/22 13:02 ALT 24 IU/L (10-60) 07/15/22 13:02 Alkaline Phosphatase 345 IU/L (42-121) H 07/15/22 13:02 C-Reactive Protein 6.0 mg/dL (0-1.0) H 07/21/22 04:45 Total Protein 5.6 g/dL (6.7-8.2) L 07/15/22 13:02 Albumin 2.2 g/dL (3.2-5.5) L 07/15/22 13:02 Globulin 3.4 g/dL (2.1-4.2) 07/15/22 13:02 Albumin/Globulin Ratio 0.6 (1.0-2.2) L 07/15/22 13:02 PSA Screen 0.353 ng/mL (0.000-2.000) 07/15/22 13:02 Urine Color YELLOW 07/21/22 13:15 Urine Clarity CLEAR (CLEAR) 07/21/22 13:15 Urine pH 5.5 PH (5.0-7.5) 07/21/22 13:15 Ur Specific [place] 1.010 (1.002-1.030) 07/21/22 13:15 Urine Protein NEGATIVE mg/dL (NEGATIVE) 07/21/22 13:15 Urine Glucose (UA) NEGATIVE mg/dL (NEGATIVE) 07/21/22 13:15 Urine Ketones NEGATIVE mg/dL (NEGATIVE) 07/21/22 13:15 Urine Occult Blood NEGATIVE (NEGATIVE) 07/21/22 13:15 Urine Nitrite NEGATIVE (NEGATIVE) 07/21/22 13:15 Urine Bilirubin NEGATIVE (NEGATIVE) 07/21/22 13:15 Urine Urobilinogen 0.2 (NORMAL) E.U./dL (NORMAL) 07/21/22 13:15 Ur Leukocyte Esterase NEGATIVE (NEGATIVE) 07/21/22 13:15 Urine RBC 0-5 /HPF (0-5) 07/21/22 13:15 Urine WBC 0-3 /HPF (0-3) 07/21/22 13:15 Urine WBC Clumps NONE SEEN 07/15/22 13:00 Ur Squamous Epith Cells NONE SEEN (<= Few) 07/21/22 13:15 Amorphous Sediment Few /LPF 07/15/22 13:00 Urine Bacteria Rare /HPF (None Seen) 07/21/22 13:15 Urine Casts 0-2 Hyaline Casts /LPF 07/15/22 13:00 Urine Yeast PRESENT 07/15/22 13:00 Urine Culture Comments NOT INDICATED 07/21/22 13:15 Nasal Screen MRSA (PCR) NEGATIVE (NEGATIVE) 07/17/22 10:55 Stl C. diff Tox B Gene NEGATIVE (NEGATIVE) 07/16/22 17:20 Sepsis Event Note (H) - Evaluation Current Stage of Sepsis: Resolved Possible source of Sepsis: positive: Genitourinary - Sepsis Criteria Sepsis Criteria: Recorded Heart Rate greater than 90 bpm, Recorded Respiratory R ate greater than 20, DELI DEPARTMENT MANAGER: altered consciousness (unrelated to primary neuro pathology), Metabolic: lactate > 2 mmol/L
[2022-07-27] MEDS: GABAPENTIN 300 MG CAPSULE PO SCH (08:10)
[2022-07-27] MEDS: MULTIVITAMIN W/MINERALS TABLET PO SCH (08:10)
[2022-07-27] MEDS: SACCHAROMYCES BOULARDII 250 MG CAPSULE PO SCH ×2 (08:10→17:45)
[2022-07-27] MEDS: cefTRIAXone 1 GM in SODIUM CHLORIDE 0.9% MINIBAG 100 ML IV SCH (08:10)
[2022-07-27] MEDS: APIXABAN 5 MG TABLET PO SCH ×2 (08:10→21:01)
[2022-07-27] MEDS: TAMSULOSIN 0.4 MG CAPSULE PO SCH (08:32)
[2022-07-27 08:46] LABS: BASOPHILS # (AUTO) 0.1 10^3/uL (0.0-0.1); EOSINOPHILS # (AUTO) 0.1 10^3/uL (0.0-0.7); EOSINOPHILS % (AUTO) 1.1 %; HCT - HEMATOCRIT 34.6 % (42.0-52.0); HGB - HEMOGLOBIN 10.6 g/dL (14.0-18.0); LYMPHOCYTES # (AUTO) 0.9 10^3/uL (1.5-3.5); LYMPHOCYTES % (AUTO) 8.8 %; MEAN CORPUSCULAR HEMOGLOBIN 29.9 pg (27.0-31.0); MEAN CORPUSCULAR HGB CONC 30.6 g/dL (32.0-36.0); MEAN CORPUSCULAR VOLUME 97.5 fL (80.0-94.0); MEAN PLATELET VOLUME 8.8 fL (7.4-11.4); MONOCYTES # (AUTO) 0.7 10^3/uL (0.0-1.0); MONOCYTES % (AUTO) 6.6 %; NEUTROPHILS # (AUTO) 8.6 10^3/uL (1.5-6.6); PLT - PLATELET COUNT 328 10^3/uL (130-450); RED BLOOD COUNT 3.55 10^6/uL (4.70-6.10); RED CELL DISTRIBUTION WIDTH 17.1 % (12.0-15.0); WHITE BLOOD COUNT 10.4 x10^3/uL (4.8-10.8)
[2022-07-27 08:58] LABS: CALCIUM 8.6 mg/dL (8.5-10.3); CREATININE 0.9 mg/dL (0.6-1.2); POTASSIUM 3.4 mmol/L (3.5-5.0)
[2022-07-27] MEDS ORDERED: FUROSEMIDE 20 MG TABLET PO STA (11:08)
[2022-07-27] MEDS: NYSTATIN POWDER 15 GM TOP SCH ×2 (11:48→21:01)
[2022-07-27] MEDS: ACETAMINOPHEN 500 MG TABLET PO PRN (17:51)
[2022-07-28 05:27] LABS: BASOPHILS # (AUTO) 0.1 10^3/uL (0.0-0.1); BASOPHILS % (AUTO) 0.9 %; EOSINOPHILS # (AUTO) 0.1 10^3/uL (0.0-0.7); EOSINOPHILS % (AUTO) 1.3 %; HCT - HEMATOCRIT 30.9 % (42.0-52.0); HGB - HEMOGLOBIN 9.7 g/dL (14.0-18.0); LYMPHOCYTES % (AUTO) 9.3 %; MEAN CORPUSCULAR HEMOGLOBIN 29.7 pg (27.0-31.0); MEAN CORPUSCULAR HGB CONC 31.4 g/dL (32.0-36.0); MEAN CORPUSCULAR VOLUME 94.5 fL (80.0-94.0); MEAN PLATELET VOLUME 8.8 fL (7.4-11.4); MONOCYTES # (AUTO) 0.9 10^3/uL (0.0-1.0); MONOCYTES % (AUTO) 8.2 %; NEUTROPHILS # (AUTO) 8.4 10^3/uL (1.5-6.6); NEUTROPHILS % (AUTO) 79.7 %; PLT - PLATELET COUNT 312 10^3/uL (130-450); RED BLOOD COUNT 3.27 10^6/uL (4.70-6.10); RED CELL DISTRIBUTION WIDTH 17.2 % (12.0-15.0); WHITE BLOOD COUNT 10.5 x10^3/uL (4.8-10.8)
[2022-07-28 05:49] LABS: ALBUMIN 2.3 g/dL (3.2-5.5); ALBUMIN/GLOBULIN RATIO 0.7 (1.0-2.2); BILIRUBIN,TOTAL 1.1 mg/dL (0.2-1.0); CALCIUM 8.3 mg/dL (8.5-10.3); CREATININE 0.8 mg/dL (0.6-1.2); POTASSIUM 3.1 mmol/L (3.5-5.0); TOTAL PROTEIN 5.6 g/dL (6.7-8.2)
[2022-07-28] MEDS ORDERED: FUROSEMIDE 20 MG TABLET PO SCH (08:00)
[2022-07-28] MEDS: MULTIVITAMIN W/MINERALS TABLET PO SCH (08:08)
[2022-07-28] MEDS: TAMSULOSIN 0.4 MG CAPSULE PO SCH (08:09)
[2022-07-28] MEDS: APIXABAN 5 MG TABLET PO SCH (08:09)
[2022-07-28] MEDS: cefTRIAXone 1 GM in SODIUM CHLORIDE 0.9% MINIBAG 100 ML IV SCH (08:10)
[2022-07-28] MEDS: SACCHAROMYCES BOULARDII 250 MG CAPSULE PO SCH (08:10)
[2022-07-28] MEDS: NYSTATIN POWDER 15 GM TOP SCH (08:30)
--- NOTE | 2022-07-28 08:30 | Discharge Plan ---
Discharge Plan Problem Reviewed?: Yes Disposition: 06 Home Health Service Condition: Fair Prescriptions: Tamsulosin [Flomax] 0.4 mg PO DAILY #30 cap Potassium Chloride [Klor-Con] 20 meq PO MOWEFR #15 packet Furosemide [Lasix] 20 mg PO MOWEFR #15 tab Nystatin [Nystop] 1 applic TOP BID #15 gm Multivitamin W/Minerals [Theragran M] 1 tab PO DAILYWM #30 tab Diet: Soft Activity Restrictions: Activity as Tolerated Shower Restrictions: No Driving Restrictions: Yes Assistance Devices: Walker Weight Bearing: Full Weight Instruction Topics: Catheter Bag Urinary Empty Clean Health Concerns: The patient was admitted for treating a fever and we found him to have recurrent infection in his bloodstream. He finished 2 weeks of IV antibiotics, which was recommended by his Oncologist and an Infectious Disease specialist. We have also found that he has urinary retention. This could be from obstruction (caused by his prostate, for example), or from having a urinary bladder that is weak and does not empty fully. He is going home with a new Brice catheter because of this problem. He needs Urology to manage this going forward. This type of poor bladder emptying could be the reason that he kept getting infections, so bad that they spread into his bloodstream. A referral has been sent for a Home Health agency to provide you with a nurse, to come to the house, check vital signs, and teach you about management of the Brice catheter, a bath aide to help with bathing, and therapists to give more physical therapy and occupational therapy in your home. Please follow the current medication list to take the medicines as prescribed. Some may be different from before hospitalization. All of his new prescriptions were electronically sent to the [facility] pharmacy in [place]. It is now advised that he have 24/7 supervision because of his dementia, history of falling, poor short term memory, and poor decision-making capacity. You should also start thinking about where he will livein the future, when he is even less independent, and needs even more caregiving. The patient should have a hospital follow-up visit to either his Primary Care Provider or his engineering documentation specialist, in the next 1 to 2 weeks. He needs a referral to see a Urologist soon, or make appointment with his prior Urologist. Plan of Treatment: As above. Care Goals: Improvement in symptoms and stabilization of the goals. Assessment: The and daughter understand and are agreeable with the plan. Additional Instructions or Follow Up instructions: If the patient should have new or worsening symptoms, call the PCP or the Oncologist for advice, or come to the ER. No Smoking: If you smoke, Please STOP! Call for help. Follow-up with: Matt Mims MD [Provider Admit Priv/Credential] -
--- NOTE | 2022-07-28 08:42 | DISCHARGE SUMMARY ---
Discharge Summary Admit Date: 07/15/22 Discharge Date: 07/28/22 Discharging Provider: Dr Minal Simon Primary Care Provider: Dr Matt Mims Code Status: Do Not Attempt Resuscitation Condition at Discharge: Fair Discharge Disposition: [facility] - [facility] History of Present Illness: This is an 86-year-old male who has a history of prostatectomy, subsequent strictures at the base of his bladder and then ended up having a TURP, has had recurrent UTIs, paroxysmal Aib and a pacemaker, Hx of dementia, recently diagnosed with metastatic melanoma, with mets to the liver and pathologic rib fracture. He started undergoing immunotherapy, has only received it for about 7 days, and takes it orally BID, but that stopped when he developed fevers: On July 07 this month, he presented to the emergency room with fevers. Blood cultures were taken and he was not admitted but was sent home. However 2 out of 2 blood cultures grew E. coli bacteremia and he was called to return and be admitted then. He received IV antibiotics which were then transitioned to oral Cipro at discharge, when the E. coli was pansensitive and after a repeat blood cx was neg. He presented back to the ER, after just 1 day, with confusion and was felt to have an infection again with possibly a gallbladder source. He was ordered to get Amoxicillin and Flagyl and was discharged home from the ER. He has taken those for 3 days. He is now presenting again with somnolence, and rigors. He was brought to the ER and found to have tachycardia, a fever of 100.5 and rigors were seen. He is found to have an elevated lactic acid level of 4, tachypneic with respiratory rate 30, heart rate 105, blood pressure is "soft" and he is only oriented to self. His urinalysis today is again suspicious for a UTI. Blood cultures were sent off and the patient has received IV fluids and started on cefepime IV and vancomycin IV. The LA has improved to 2.7. The ED provider reached out to me on the Hospitalist team and we discussed to have this patient admitted for sepsis, altered mental status, possibly a recurrent UTI. The ED provider did speak to the informing her that he has had a rapid downward course this month, and his prognosis appears grim. His CODE STATUS is DNR. - HOSPITAL COURSE Hospital Course: (1) Sepsis At admission, he had criteria for sepsis including tachycardia, elevated Lactic acid level, fever, tachypnea, altered mental status and abnormal urinalysis. He was started on IV fluids and empiric antibx, with a presumed urinary source. We started empiric IV cefepime and empiric IV Vanco, later changed to iv Rocephin started July 20, 2022. (2) E coli bacteremia 07/07/22: In ER for confusion and fever. Sent home w nml labs and good response to IVF. 07/08: ER asked him to return to ER when blood cultures grew out E coli bacteremia He was then hospitalized here from 07/08 to 07/10 and got iv Ceftriaxone, which was transitioned to po Cipro. Repeat blood cultures were negative while on ceftriaxone. 07/11: Fever on Cipro so he returned to the ER. Blood cultures from that date were negative. He was monitored in the ER and Gen Surg did consult, since CT s christopher of the abdomen on that ER visit, demonstrated a possible GB source. So he was sent home from the ER on 07/12 with antibx changed to po Augmentin and Flagyl. 07/15/22: He took Augmentin and Flagyl but came back 07/15 with a fever at home again and is now admitted again. In the ER and for the rest of his stay he has not had fevers. Two of 2 blood cultures that were drawn in the ER 07/15 turned positive for E coli, it was pansensitive to all antibiotics for E. coli. We started empiric IV cefepime and empiric IV Vanco, which he received for 2-1/2 days. Vancomycin was discontinued July 17. PSA screen was 0.353 from July 15, an indirect indication that this was not prostatitis. He had an abdomen/pelvis CT here on 07/15. That was compared to 07/11, and 06/13. He had moderate bilateral pleural effusions. The liver was abnormal with multiple poorly defined nodules that were attributed to metastatic melanoma. Most of these are less than 1 cm but the right posterior lobe lesion is 5.5 cm. Multiple low-density nodules in the spleen. Gallbladder is collapsed, biliary system is nondilated. Kidneys normal without hydronephrosis. Bowel loops are normal. No free air. Moderate ascites seen. Diverticulosis without diverticulitis is seen. No retroperitoneal or mesenteric adenopathy. Bladder wall thickness was normal. In speaking to [facility] Infectious Disease, we discussed the possibility that his liver nodules, especially the 5 cm nodule, could be an abscess. There was no fluid or air in these nodules but these were all noncontrast CTs. Essentially we were looking for a GI or source for this man's E. coli bacteremia, so we did a repeat the CT of the abdomen and pelvis 07/20 with contrast. It showed no change from previous CTs and he continues to have the same nodules in the spleen as well. In discussing the case with [facility] Infectious Disease attending, Dr. Jacob, she reviewed the cultures, but could not receive pushed CT scans, since they cannot perform reviews of scans performed outside their institution unless required for tumor board or liver transplant listings. But from an infectious disease perspective she did not think there needed to be any additional work-u, and she did not need him to be transferred to higher level of care. She agreed with treating him with 2 weeks of IV antibiotics using ceftriaxone. The was happy that he did not need to be transferred. But she was told that if bacteremia recurs following this course, then he will need to reassessed again, and she really should take him to the [facility], since we do not have specialty services here at [facility]. He remained on iv Ceftriaxone through July 28, 2022. (3) Urinary retention This was initially documented while he was in ICU and a Brice was placed. Brice was removed 07/25/22. Then he had frequent small voids and a postvoid bladder scan showed 585 mL. A straight cath was ordered. He again had bladder scan volumes near 400 mL. He may have prostate enlargement or a neurolgenic bladder, and this could have been the source of his UTI and recurrent bacteremias. He was discharged on new Tamsolusin and with a Brice catheter. Home Health nursing was ordered because of the Brice and he needs Urology to manage this going forward. (4) AMS (altered mental status) He has presented several times with somnolence and confusion, when febrile, with an infection. After the initial somnolence, he awakens and is very forgetful. When his leaves for the evening, he sundowns. We did think about doing a brain MRI, however he has a pacemaker, so no MRI can be done. (5) Metastatic melanoma He gets oral Braftovi and Mektovi for the treatment of his metastatic melanoma. He is currently being managed by Dr. Arianna Reeder at [facility]. His immunotherapy has been on hold since the first fever on 07/07/22, since his fever and infection had not cleared. I spoke to his Oncol, Dr Arianna Reeder at [facility] on 07/17/22, about this hospitalization with recurrent bacteremia and she said that this time iv antibx should be continued longer. (6) Dementia As per history, the makes most of his decisions. He is on no meds for his dementia. He is able to work with PT and OT but needs a lot of cueing. He also sundowns when the leaves, she spends most of the day with him here. reiterated that she can take care of him when he gets home. She had no intention of having him do rehab in a SNF. She was advised about him needing supervision at home and to hire caregivers (7) Fall during current hospitalization Unwitnessed fall occurred July 16. The patient's bed alarm was not on. The telemetry GRAVEDIGGER thought that she noticed an abnormal irregular heart rhythm, poss VT, and informed his nurse. The nurse and TECHNICAL SERVICES ASSISTANT went in to see the patient and found him on the floor, near the bed, head was almost against the wall, both bedrails were up. He told his nurse that he climbed over the bed rail because he had to urinate. He said he hit his head on the occiput, denied any headache, there was no skin tear, or neurologic deficit when examined. A c-collar was placed, he underwent STAT CT head and C-spine CT which were neg and c-collar was removed. An order was written to remind nursing to keep the bed alarm on when the patient was alone in the room. (8) Pacemaker Because of his history of A-fib and presented tachycardic, he was initially on telemetry. But he kept pulling off his leads, due to dementia, and his rhythm was stable, thus telemetry was discontinued. An Echocardiogram showed normal LV wall thickness normal and EF 50 to 55%. The distal anterolateral and distal inferolateral wall segments were hypokinetic. Right ventricle normal. Pacemaker leads in the right atrium and right ventricle seen. No large or obvious vegetations seen. Left atrium normal. No aortic stenosis or mitral stenosis. Mild tricuspid regurgitation present with RVSP 44 mmHg. (9) Leg edema An Echo was done this admission and it did not show cor pulmonale. For his leg edema, he received Lasix IV intermittently, but his leg edema recurred. Thus he was started and discharged on Lasix orally Sunday only. (10) Hypokalemia Due to poor intake during his AMS and needing Lasix. He was discharged on suppl K to take orally Sunday only. (11) Yeast UTI He had an abnormal urinalysis at admission. PSA is very low. So we did not suspect prostatitis. The final culture grew only yeast. Presumably no bacteria grew because he has been on different antibiotics since 07/07/22, and had a partially treated UTI. - ALLERGIES Allergies/Adverse Reactions: Allergies Allergy/AdvReac Type Severity Reaction Status Date / Time pneumococcal vaccine Allergy Hives Verified 07/15/22 13:04 [From Prevnar 13 (PF)] - MEDICATIONS Home Medications: Ambulatory Orders Medication Instructions Recorded Confirmed Apixaban [Eliquis] 5 mg PO BID 07/08/22 07/16/22 Gabapentin [Neurontin] 300 mg PO BID 07/08/22 07/16/22 Binimetinib [Mektovi] 45 mg PO BID 07/09/22 07/16/22 Encorafenib [Braftovi] 450 mg PO DAILY 07/09/22 07/16/22 Fluticasone 44 Mcg [Flovent] 2 puffs INH BID 07/16/22 07/16/22 Acetaminophen [Tylenol] 500 mg PO Q4HR PRN tab 07/28/22 Furosemide [Lasix] 20 mg PO MOWEFR #15 tab 07/28/22 Multivitamin W/Minerals [Theragran 1 tab PO DAILYWM #30 tab 07/28/22 M] Nystatin [Nystop] 1 applic TOP BID #15 gm 07/28/22 Potassium Chloride [Klor-Con] 20 meq PO MOWEFR #15 packet 07/28/22 Tamsulosin [Flomax] 0.4 mg PO DAILY #30 cap 07/28/22 - PHYSICAL EXAM AT DISCHARGE General Appearance: positive: No acute distress, Alert Eyes Bilateral: positive: Normal inspection, EOMI ENT: positive: ENT inspection nml, No signs of dehydration Neck: positive: Nml inspection, No JVD Respiratory: positive: No respiratory distress, Breath sounds nml Cardiovascular: positive: Regular rate & rhythm, No murmur Abdomen: positive: Non-tender, Nml bowel sounds, No distention Skin: positive: Warm, Dry, Other (Ashen skin color) Extremities: positive: Non-tender, Other (1+ edema above ankles) Neurologic/Psychiatric: positive: CN's nml (2-12), Motor nml, Disoriented to person, Disoriented to place, Disoriented to time - LABS Result Diagrams: 07/28/22 05:12 07/28/22 05:12 - DIAGNOSTIC IMAGING Diagnostic Imaging Results: Final report reviewed - SEPSIS Current Stage of Sepsis: Resolved Possible source of Sepsis: Genitourinary Sepsis Criteria: Recorded Heart Rate greater than 90 bpm, Recorded Respiratory Rate greater than 20, CASE RESOURCE MANAGER: altered consciousness (unrelated to primary neuro pathology), Metabolic: lactate > 2 mmol/L - FOLLOW UP Follow Up: The patient should have a hospital follow-up visit to either his Primary Care Provider or his legal service specialist, in the next 1 to 2 weeks. He needs a referral to see a Urologist soon, or make appointment with his prior Urologist. - TIME SPENT Time Spent in Discharge (Minutes): 50
[2022-07-28] MEDS ORDERED: GABAPENTIN 300 MG CAPSULE PO SCH (09:00)
[2022-07-28] MEDS ORDERED: POTASSIUM CHLORIDE 20 MEQ TABLET PO ONE (09:00)
[2022-07-28] MEDS: POTASSIUM CHLOR 10 MEQ/100 ML 10 MEQ/100 ML BAG IV SCH ×2 (09:14→10:06)
[2022-07-28] MEDS: ACETAMINOPHEN 500 MG TABLET PO PRN (10:10)
[2022-07-28 14:19] VITALS: BP 130/69
[2022-07-28] MEDS: SODIUM CHLORIDE FLUSH 0.9% 10 ML SYRINGE IVP SCH (15:00)
== END 2022-07-28 15:27 | disposition home health service (06) | DRG 872 ==
LOC: EDUNIT# → ED 12:45 → ICU 18:28 → MS2 07-24 08:11
PROVIDERS: ADMIT Internal Medicine; ATTEND Internal Medicine
PROC: 02HV33Z Insertion of Infusion Device into Superior Vena Cava, Percutaneous Approach (ICD-10-PCS; principal; 2022-07-19)
DX: A41.9 Sepsis, unspecified organism (principal); G93.40 Encephalopathy, unspecified; R68.89 Other general symptoms and signs; A41.51 Sepsis due to Escherichia coli [E. coli]; F03.90 Unspecified dementia, unspecified severity, without behavioral disturbance, psychotic disturbance, mood disturbance, and anxiety; C78.7 Secondary malignant neoplasm of liver and intrahepatic bile duct; I45.10 Unspecified right bundle-branch block; B37.49 Other urogenital candidiasis; F05 Delirium due to known physiological condition; J90 Pleural effusion, not elsewhere classified; I48.0 Paroxysmal atrial fibrillation; C43.9 Malignant melanoma of skin, unspecified; M84.58XD Pathological fracture in neoplastic disease, other specified site, subsequent encounter for fracture with routine healing; R33.9 Retention of urine, unspecified; R60.0 Localized edema; E87.6 Hypokalemia; I10 Essential (primary) hypertension; E78.00 Pure hypercholesterolemia, unspecified; J45.909 Unspecified asthma, uncomplicated; K21.9 Gastro-esophageal reflux disease without esophagitis; M19.90 Unspecified osteoarthritis, unspecified site; G89.29 Other chronic pain; M54.9 Dorsalgia, unspecified; M54.2 Cervicalgia; W06.XXXA Fall from bed, initial encounter; Y92.230 Patient room in hospital as the place of occurrence of the external cause; F03.A0 Unspecified dementia, mild, without behavioral disturbance, psychotic disturbance, mood disturbance, and anxiety; K57.90 Diverticulosis of intestine, part unspecified, without perforation or abscess without bleeding; R22.0 Localized swelling, mass and lump, head; Z66 Do not resuscitate; Z79.01 Long term (current) use 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s; Z79.899 Other long term (current) drug therapy; Z86.711 Personal history of pulmonary embolism; Z90.49 Acquired absence of other specified parts of digestive tract; Z90.79 Acquired absence of other genital organ(s); Z95.0 Presence of cardiac pacemaker
CPT/HCPCS: 36415; 70450; 71045; 72125; 74177; 80048; 80053; 81001; 82330; 83605; 83615; 83735; 84100; 84132; 85025; 85610; 86140; 87040; 87086; 87150; 87181; 87493; 87640; 93005; 93306; 96365; 96367; 96375; 97116; 97163; 97167; 97530; 97535; 99285; A9270; G0103; J0131; J2060; J3370; J7120; Q9967; 84153

== ENCOUNTER 2022-07-28 15:27 | Outpatient (CLI) | payer MEDICARE, OTHER | END 2022-07-28 23:59 | disposition home or self-care (01) | LOC: EMS 15:27 | PROVIDERS: ATTEND Internal Medicine | DX: R41.0 Disorientation, unspecified (principal); Z74.01 Bed confinement status | CPT/HCPCS: A0425; A0428 ==

== ENCOUNTER 2022-08-11 07:42 | Outpatient (CLI) | payer MEDICARE, OTHER | END 2022-08-11 07:43 | disposition critical access hospital (66) | LOC: EMS 07:42 | DX: R10.11 Right upper quadrant pain (principal); R10.31 Right lower quadrant pain; R46.89 Other symptoms and signs involving appearance and behavior; R82.90 Unspecified abnormal findings in urine | CPT/HCPCS: A0425; A0429 ==

== ENCOUNTER 2022-08-11 07:57 | Emergency (ER) | payer MEDICARE, OTHER ==
[2022-08-11 08:42] LABS: BASOPHILS # (AUTO) 0.1 10^3/uL (0.0-0.1); BASOPHILS % (AUTO) 0.7 %; EOSINOPHILS # (AUTO) 0.1 10^3/uL (0.0-0.7); EOSINOPHILS % (AUTO) 0.6 %; HCT - HEMATOCRIT 37.7 % (42.0-52.0); HGB - HEMOGLOBIN 11.4 g/dL (14.0-18.0); LYMPHOCYTES # (AUTO) 1.3 10^3/uL (1.5-3.5); LYMPHOCYTES % (AUTO) 10.2 %; MEAN CORPUSCULAR HGB CONC 30.2 g/dL (32.0-36.0); MEAN CORPUSCULAR VOLUME 95.9 fL (80.0-94.0); MEAN PLATELET VOLUME 8.6 fL (7.4-11.4); MONOCYTES # (AUTO) 1.3 10^3/uL (0.0-1.0); MONOCYTES % (AUTO) 9.9 %; NEUTROPHILS # (AUTO) 10.2 10^3/uL (1.5-6.6); NEUTROPHILS % (AUTO) 77.9 %; PLT - PLATELET COUNT 448 10^3/uL (130-450); RED BLOOD COUNT 3.93 10^6/uL (4.70-6.10); RED CELL DISTRIBUTION WIDTH 16.6 % (12.0-15.0); WHITE BLOOD COUNT 13.1 x10^3/uL (4.8-10.8)
[2022-08-11] MEDS ORDERED: iohexoL-300 100 ML VIAL ONE (08:50)
[2022-08-11 08:55] LABS: ALBUMIN 3.1 g/dL (3.2-5.5); ALBUMIN/GLOBULIN RATIO 0.8 (1.0-2.2); CALCIUM 8.9 mg/dL (8.5-10.3); POTASSIUM 4.5 mmol/L (3.5-5.0)
--- NOTE | 2022-08-11 08:58 | ED Physician Documentation ---
PD HPI ABD PAIN - Stated complaint Stated Complaint: RIB/RLQ PX - Chief complaint Chief Complaint: Abd Pain - History obtained from History obtained from: Patient, Family - History of Present Illness Pain level max: 7 Pain level now: 7 Quality: Aching, Pain Location: RUQ Radiation: No: Chest, , Lower back, Left flank, Left shoulder, Right flank, Right shoulder, Upper back Associated symptoms: Other (has a tuttle catheter in place). No: Fever, Nausea, Vomiting, Hematemesis, Diarrhea, Constipation, Melena, Hematochezia - Additional information Additional information: Patient is an 87-year-old gentleman who presents to the emergency department complaint of right upper quadrant abdominal pain since last night. He had been on IV antibiotics recently for recurrent E. coli bacteremia. He is currently under going chemotherapy for metastatic melanoma. No fevers. No chills. States is continuing to have right upper quadrant abdominal pain at this time. Review of Systems Constitutional: denies: Fever, Chills Respiratory: denies: Cough GI: denies: Vomiting, Diarrhea Skin: denies: Rash Musculoskeletal: denies: Neck pain, Back pain Neurologic: denies: Headache PD PAST MEDICAL HISTORY - Past Medical History Cardiovascular: Hypertension, High cholesterol, Pulmonary embolism, Atrial fibrillation, Other Respiratory: Asthma Neuro: Dementia Endocrine/Autoimmune: None GI: GERD (w a UMER in 2002), Diverticulitis : Benign prostate hypertrophy (w LUTs, s/p TURP then dilation of stricture then TUR of stricture), Incontinence, Nocturia, Kidney stones, Other (erecctile dysfunction, balanitis) Psych: None Musculoskeletal: Osteoarthritis, Chronic back pain Derm: None, Other - Past Surgical History Past Surgical History: Yes General: Appendectomy, Colonoscopy, EGD, Other Cardiovascular: Pacemaker HEENT: Cataracts Derm: Skin cancer surgery - Present Medications Home Medications: Ambulatory Orders Medication Instructions Recorded Confirmed Apixaban [Eliquis] 5 mg PO BID 07/08/22 08/11/22 Gabapentin [Neurontin] 300 mg PO BID 07/08/22 08/11/22 Binimetinib [Mektovi] 30 mg PO BID 07/09/22 08/11/22 Encorafenib [Braftovi] 300 mg PO DAILY 07/09/22 08/11/22 Fluticasone 44 Mcg [Flovent] 2 puffs INH BID 07/16/22 08/11/22 Acetaminophen [Tylenol] 500 mg PO Q4HR PRN tab 07/28/22 08/11/22 Furosemide [Lasix] 20 mg PO MOWEFR #15 tab 07/28/22 08/11/22 Multivitamin W/Minerals [Theragran 1 tab PO DAILYWM #30 tab 07/28/22 08/11/22 M] Nystatin [Nystop] 1 applic TOP BID #15 gm 07/28/22 08/11/22 Potassium Chloride [Klor-Con] 20 meq PO MOWEFR #15 packet 07/28/22 08/11/22 Tamsulosin [Flomax] 0.4 mg PO DAILY #30 cap 07/28/22 08/11/22 oxyCODONE [Roxicodone] 2.5 - 5 mg PO Q8H PRN #10 tablet 08/11/22 MDD 6 - Allergies Allergies/Adverse Reactions: Allergies Allergy/AdvReac Type Severity Reaction Status Date / Time pneumococcal vaccine Allergy Hives Verified 08/11/22 08:53 [From Prevnar 13 (PF)] - Social History Does the pt smoke?: No Smoking Status: Never smoker Does the pt drink ETOH?: Yes Does the pt have substance abuse?: No - Immunizations Immunizations are current?: Yes - POLST Patient has POLST: No POLST Status: DNR (per his who has advanced directives at home) PD ED PE NORMAL - Vitals Vital signs reviewed: Yes - General General: Alert and oriented X 3, No acute distress - HEENT HEENT: Moist mucous membranes - Neck Neck: Supple, no meningeal sign - Cardiac Cardiac: RRR, Strong equal pulses - Respiratory Respiratory: No respiratory distress, Clear bilaterally - Abdomen Abdomen: Soft, Non distended, Other (TTP RUQ, + ibanez's sign) - Back Back: No CVA TTP, No spinal TTP - Derm Derm: Warm and dry - Extremities Extremities: No edema - Neuro Neuro: Alert and oriented X 3 Results - Vitals Vitals: Vital Signs - 24 hr 08/11/22 08/11/22 08/11/22 08:00 08:46 11:58 Temperature 36.9 C Heart Rate 82 90 80 Respiratory 22 16 16 Rate Blood Pressure 105/72 185/85 H 141/89 H O2 Saturation 98 93 100 08/11/22 13:22 Temperature Heart Rate 82 Respiratory 16 Rate Blood Pressure 154/63 H O2 Saturation 100 Oxygen O2 Source Room air - Labs Labs: Laboratory Tests 08/11/22 08/11/22 08/11/22 08:37 08:37 08:39 WBC 13.1 H RBC 3.93 L Hgb 11.4 L Hct 37.7 L MCV 95.9 H MCH 29.0 MCHC 30.2 L RDW 16.6 H Plt Count 448 MPV 8.6 Neut # (Auto) 10.2 H Lymph # (Auto) 1.3 L [place] # (Auto) 1.3 H Eos # (Auto) 0.1 Baso # (Auto) 0.1 Absolute Nucleated RBC 0.00 Nucleated RBC % 0.0 PT 12.5 INR 1.1 APTT 32.3 Sodium 139 Potassium 4.5 Chloride 102 Carbon Dioxide 27 Anion Gap 10.0 BUN 29 H Creatinine 1.0 Estimated GFR (MDRD) 70 L Glucose 109 H Calcium 8.9 Total Bilirubin 1.0 AST 35 ALT 39 Alkaline Phosphatase 519 H Total Protein 7.0 Albumin 3.1 L Globulin 3.9 Albumin/Globulin Ratio 0.8 L Lipase 168 H Urine Color Urine Clarity Urine pH Ur Specific [place] Urine Protein Urine Glucose (UA) Urine Ketones Urine Occult Blood Urine Nitrite Urine Bilirubin Urine Urobilinogen Ur Leukocyte Esterase Urine RBC Urine WBC Ur Squamous Epith Cells Urine Crystals Urine Bacteria Ur Microscopic Review Urine Culture Comments 08/11/22 09:00 WBC RBC Hgb Hct MCV MCH MCHC RDW Plt Count MPV Neut # (Auto) Lymph # (Auto) [place] # (Auto) Eos # (Auto) Baso # (Auto) Absolute Nucleated RBC Nucleated RBC % PT INR APTT Sodium Potassium Chloride Carbon Dioxide Anion Gap BUN Creatinine Estimated GFR (MDRD) Glucose Calcium Total Bilirubin AST ALT Alkaline Phosphatase Total Protein Albumin Globulin Albumin/Globulin Ratio Lipase Urine Color YELLOW Urine Clarity SL. CLOUDY Urine pH 7.0 Ur Specific [place] 1.010 Urine Protein NEGATIVE Urine Glucose (UA) NEGATIVE Urine Ketones NEGATIVE Urine Occult Blood MODERATE H Urine Nitrite NEGATIVE Urine Bilirubin NEGATIVE Urine Urobilinogen 0.2 (NORMAL) Ur Leukocyte Esterase NEGATIVE Urine RBC 11-25 H Urine WBC 11-25 H Ur Squamous Epith Cells NONE SEEN Urine Crystals 11-25 Ca Oxalate Urine Bacteria None Seen Ur Microscopic Review INDICATED Urine Culture Comments NOT INDICATED - Rads (name of study) CT abd/pelvis Relevant Findings:: Final report received, See rad report RUQ US Relevant Findings:: Final report received, See rad report PD Medical Decision Making - ED course Complexity details: reviewed results, re-evaluated patient, considered dif ferential, d/w patient, d/w family ED course: Pain well controlled in the emergency department. Given a dose of 0.5 mg IV Dilaudid. Given IV fluids as well. CBC does show a mild chronic anemia. Mild elevation of his white blood cell count as well. Coagulation studies are normal. LFTs are normal other than elevated alkaline phosphatase and mildly elevated lipase. Urinalysis does not show any evidence of infection at this time. He does have a Tuttle catheter in place. His CT scan does show worsening metastatic disease in the liver and spleen. He reportedly had a biopsy of the liver in May of this year which showed metastatic disease throughout the liver. No indication that this represents abscesses acutely. Discussed the case with his oncologist, Donald Vargas, she will follow-up with the patient as an outpatient. Recommends continuing his current oral chemotherapy. We will prescribe oral pain medication for home. A palliative care referral was also placed. If patient continues to not do well with his current medication regimen, would consider hospice referral as well. The patient's was given information regarding hospice. Patient and family counseled regarding signs and symptoms for which I believe and urgent re-evaluation would be necessary. Patient and with good understanding of and agreement to plan and is comfortable going home at this time This document was made in part using voice recognition software. While efforts are made to proofread this document, sound alike and grammatical errors may occur. Departure - Departure Disposition: 01 Home, Self Care Clinical Impression: Dehydration, Metastatic melanoma Abdominal pain Qualifiers: Abdominal location: unspecified location Qualified Code(s): R10.9 - Unspecified abdominal pain Condition: Good Instructions: ED Dehydration, ED Abdominal Pain Unkn Cause Male Follow-Up: Matt Mims MD [Primary Care Provider] - Within 1 week Arianna Reeder MD [Physician No Access] - Prescriptions: oxyCODONE [Roxicodone] 2.5 - 5 mg PO Q8H PRN #10 tablet MDD 6 PRN Reason: pain Comments: Please follow-up with your doctor for further care. Please make sure he is drinking plenty of fluid at home. You can use the oxycodone as needed for pain. His prescription was sent to [facility] in [place]. A palliative care referral was placed as well. You were given information regarding hospice as well.. I am prescribing a short course of narcotic pain medication for you. These are potentially dangerous and addictive medications that should be used carefully. These medications may constipate you. Take an bafy-wdw-xiraogi stool softener (docusate) twice daily with plenty of water while taking these medications. If you go 24 hours without a bowel movement, take vzwa-roi-xlybuzn miralax, per package instructions. Do not drink or drive while taking these medications. If you received narcotic or sedating medications while in the emergency department, do not drive for 24 hours. Store this medication in a safe, secure place and out of reach of children. It is a violation of federal law to give or sell this medication to another person or to use in a manner other than prescribed. The ED will not refill narcotic prescriptions, including prescriptions lost or stolen. To dispose of unwanted medications: 1. [facility] [address] in [place] has a medication drop box. They accept prescription medications (in pill form) Sunday through Sunday 9:00 a.m. to 5:00 p.m. 2. The [facility] [employer] accepts prescription medications (in pill form only) for disposal year round. Call for more information. 3. Contact the [facility] for the next [facility] sponsored prescription drug collection event. , [phone], or [phone]; Discharge Date/Time: 08/11/22 13:24
[2022-08-11] MEDS ORDERED: HYDROmorphone 1 MG/ML CARPUJECT IVP STA (09:00)
--- OUTSIDE RECORDS SUMMARY | 2022-08-11 09:08 | EXTERNAL MEDICAL SUMMARY RPT | Continuity of Care Document ---
:1935 Author Organization [facility] Address [address] [place] [address] Phone Care Team Providers Name Role Phone Unavailable Unavailable Unavailable Lucien Lan Unavailable Unavailable Allergies and Intolerances date description facility type (no date) pneumococcal 7-valent conjugate to [facility] (unknown) Encounters No information. Functional Status No information. Immunizations No information. Medications date description facility 2022-06-16 00:00 Apixaban [facility] 2022-06-16 00:00 Amlodipine [facility] 2022-06-16 00:00 Gabapentin [facility] Problems date description facility 2022-06-16 00:00 Sepsis [facility] 2022-06-16 00:00 Atrial fibrillation [facility] 2022-06-16 00:00 Urinary tract infection [facility] 2022-06-16 00:00 Confusion [facility] 2022-06-16 00:00 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 [facility] 2022-06-19 13:52 Sepsis, unspecified organism [facility] 2022-06-22 08:33 Sepsis, unspecified organism [facility] 2022-06-22 11:44 Sepsis, unspecified organism [facility] 2022-06-22 14:32 Sepsis, unspecified organism [facility] 2022-06-27 14:23 Sepsis, unspecified organism [facility] 2022-06-27 14:43 Sepsis, unspecified organism [facility] Procedures date description facility 2022-06-16 00:00 Computed tomography of head or brain wi [facility] contrast 2022-06-21 00:00 Gram Stain [facility] 2022-06-20 00:00 CT soft tissue neck w [facility] 2022-06-16 00:00 X-ray of chest, single view [facility] 2022-06-16 00:00 CT abdomen pelvis w [facility] 2022-06-17 00:00 US Abdomen limited [facility] 2022-06-16 00:00 CT chest w [facility] 2022-06-21 00:00 CT biopsy [facility] Results/Labs test date author facility value [...] nown) date) unknown) (unknown) (no (unknown) (unknown) [id number] (units (unkno wn) date) unknown) (unknown) (no (unknown) (unknown) 06/16/22 (units (unkno wn) date) unknown) (unknown) (no (unknown) (unknown) [address] (units (unkn own) date) Street unknown) (unknown) (no (unknown) (unknown) Accession (units (unkn own) date) Number: unknown) [id number] (unknown) (no (unknown) (unknown) Age/Sex: 86 / M (units (unknown) date) Date of Service: unknown) (unknown) (no (unknown) (unknown) [place], [place] (units ( unknown) date) [address] unknown) (unknown) (no (unknown) (unknown) Approved by: (units (u nknown) date) Brandyn Davis M.D. unknown) on 06/16/2022 at 13:03 (unknown) (no (unknown) (unknown) Bones and chest (units (unknown) date) wall: No unknown) suspicious bony lesions. Overlying soft tissues (unknown) (no (unknown) (unknown) COMPARISON: (units (un known) date) None. unknown) (unknown) (no (unknown) (unknown) : 1935 (units (unknown) date) Acct:[id number] unknown) (unknown) (no (unknown) (unknown) Dictated by: (units (u nknown) date) Brandyn Davis M.D. unknown) on 06/16/2022 at 13:02 (unknown) (no (unknown) (unknown) FINDINGS: (units (unkn own) date) unknown) (unknown) (no (unknown) (unknown) IMPRESSION: (units (un known) date) Possible mild unknown) right and retrocardiac opacities could represent (unknown) (no (unknown) (unknown) INDICATIONS: (units (u nknown) date) suspected sepsis unknown) (unknown) (no (unknown) (unknown) [facility] (units (unknown) date) unknown) (unknown) (no [...] nown) date) unknown) (unknown) (no (unknown) (unknown) [id number] (units (unkno wn) date) unknown) (unknown) (no (unknown) (unknown) 06/16/22 (units (unkno wn) date) unknown) (unknown) (no (unknown) (unknown) [address] [place] [address] (units (unknown) date) unknown) (unknown) (no (unknown) (unknown) Accession Number: (units (unknown) date) [id number] unknown) (unknown) (no (unknown) (unknown) Age/Sex: 86 / M (units (unknown) date) Date of Service: unknown) (unknown) (no (unknown) (unknown) [place] (units ( unknown) date) [address] unknown) (unknown) (no (unknown) (unknown) Approved by: [...] (unknown) (unknown) : 1935 (units (unknown) date) Acct:[id number] unknown) (unknown) (no (unknown) (unknown) Dictated by: [...] date) Good unknown) (unknown) (no (unknown) (unknown) [facility] (units (unknown) date) unknown) (unknown) (no [...] nown) date) unknown) (unknown) (no (unknown) (unknown) [id number] (units (unkno wn) date) unknown) (unknown) (no (unknown) (unknown) 06/16/22 (units (unkno wn) date) unknown) (unknown) (no (unknown) (unknown) [address] [place] [address] (units (unknown) date) unknown) (unknown) (no (unknown) (unknown) Accession (units (unkn own) date) Number: unknown) [id number] (unknown) (no (unknown) (unknown) After the (units (unkn own) date) administration of unknown) intravenous contrast, 5 mm thick sections acquired (unknown) (no (unknown) (unknown) Age/Sex: 86 / M (units (unknown) date) Date of Service: unknown) (unknown) (no (unknown) (unknown) [place], [place] (units ( unknown) date) [address] unknown) (unknown) (no (unknown) (unknown) Approved by: (units (u nknown) date) Brandyn Davis M.D. unknown) on 06/16/2022 at 14:52 (unknown) (no (unknown) (unknown) Bones: No acute (units (unknown) date) or suspicious unknown) osseous abnormality. (unknown) (no (unknown) (unknown) COMPARISON: (units (un known) date) [facility], unknown) CR, XR CHEST 1V, 06/16/2022, 12:43. (unknown) (no (unknown) (unknown) CT Scan Report (units (unknown) date) unknown) (unknown) (no (unknown) (unknown) Chest wall and (units (unknown) date) thyroid: unknown) Unremarkable (unknown) (no (unknown) (unknown) : 1935 (units (unknown) date) Acct:[id number] unknown) (unknown) (no (unknown) (unknown) Dictated by: [...] date) Good unknown) (unknown) (no (unknown) (unknown) [facility] (units (unknown) date) unknown) (unknown) (no (unknown) (unknown) Loc: ED (units (unkno wn) date) unknown) (unknown) (no (unknown) (unknown) Lungs and (units (unkn own) date) pleura: Bilateral unknown) mpca-ym-jwaavnuq pleural effusions, slightly (unknown) (no (unknown) (unknown) Mediastinum, (units (u nknown) date) heart, and unknown) esophagus: No hiatal hernia. 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 (unknown) (no (unknown) [...] date) Signs: unknown) (unknown) (no (unknown) (unknown) [facility] (units (unknown) date) [address] unknown) [place] [address] (unknown) (no (unknown) (unknown) Lab Data (units [...] (unknown) Lymph # (Auto) (units (unknown) date) (8094-0564) /uL unknown) (unknown) (no (unknown) (unknown) Lymph # (Auto) (units (unknown) date) 400 L (9544-9571) unknown) /uL (unknown) (no (unknown) (unknown) Lymph [...] date) Wheelchair unknown) (unknown) (no (unknown) (unknown) Dent # (Auto) (units ( unknown) date) (0-900) /uL unknown) (unknown) (no (unknown) (unknown) Dent # (Auto) (units ( unknown) date) 900 (0-900) /uL unknown) (unknown) (no (unknown) (unknown) Dent % (Auto) (units ( unknown) date) (3-14) % unknown) (unknown) (no (unknown) (unknown) Dent % (Auto) (units ( unknown) date) 9.4 [...] Neut # (Auto) (units ( unknown) date) (0048-9739) /uL unknown) (unknown) (no (unknown) (unknown) Neut # (Auto) (units ( unknown) date) 8200 H unknown) (3031-3920) /uL (unknown) (no (unknown) (unknown) Neut % [...] (4.5-11.0) unknown) X103/uL (unknown) (no (unknown) (unknown) [facility] (units (unknown) date) ER for evaluation [...] (units (unk nown) date) strong equal unknown) belt picker 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 (unknown) (no (unknown) [...] date) Signs: unknown) (unknown) (no (unknown) (unknown) [facility] (units (unknown) date) [address] unknown) [place] [address] (unknown) (no (unknown) (unknown) Lab Data (units [...] (unknown) Lymph # (Auto) (units (unknown) date) (0629-7938) /uL unknown) (unknown) (no (unknown) (unknown) Lymph # (Auto) (units (unknown) date) 400 L (5755-3480) unknown) /uL (unknown) (no (unknown) (unknown) Lymph [...] date) Wheelchair unknown) (unknown) (no (unknown) (unknown) Dent # (Auto) (units ( unknown) date) (0-900) /uL unknown) (unknown) (no (unknown) (unknown) Dent # (Auto) (units ( unknown) date) 900 (0-900) /uL unknown) (unknown) (no (unknown) (unknown) Dent % (Auto) (units ( unknown) date) (3-14) % unknown) (unknown) (no (unknown) (unknown) Dent % (Auto) (units ( unknown) date) 9.4 [...] Neut # (Auto) (units ( unknown) date) (6847-5200) /uL unknown) (unknown) (no (unknown) (unknown) Neut # (Auto) (units ( unknown) date) 8200 H unknown) (8676-9934) /uL (unknown) (no (unknown) (unknown) Neut % [...] (4.5-11.0) unknown) X103/uL (unknown) (no (unknown) (unknown) [facility] (units (unknown) date) ER for evaluation [...] (units (unk nown) date) strong equal unknown) belt picker 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 unknown) (unknown) (no (unknown) (unknown) Accession Number: (units (unknown) date) [id number] ?? unknown) (unknown) (no (unknown) (unknown) Accession Number: (units (unknown) date) [id number] ?? unknown) (unknown) (no (unknown) (unknown) Acct:[id number] (units (unknown) date) unknown) (unknown) (no (unknown) [...] (unknown) TAYLOR Moreno (units ( unknown) date) [address] unknown) (unknown) (no (unknown) (unknown) Approved by: [...] (unknown) (unknown) COMPARISON:? 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 Bilateral unknown) pqek-aj-rvzvuopj pleural effusions, slightly (unknown) (no (unknown) (unknown) Lungs and pleura:? (units (unknown) date) Low lung volumes.? unknown) Possible mild right and retrocardiac basal (unknown) (no (unknown) (unknown) Lymph # (Auto) (units (unknown) date) (3664-3475) /uL unknown) (unknown) (no (unknown) (unknown) Lymph # (Auto) (units (unknown) date) 400 L (5884-4425) unknown) /uL (unknown) (no (unknown) (unknown) Lymph [...] date) unknown) (unknown) (no (unknown) (unknown) MR#: [id number] (units (unknown) date) unknown) (unknown) (no (unknown) [...] unknown) Recorded Confirmed (unknown) (no (unknown) (unknown) Hzpc-zu-bruzivzq, (units (unknown) date) unknown) (unknown) (no (unknown) (unknown) Mode of arrival: (units (unknown) date) Wheelchair unknown) (unknown) (no (unknown) (unknown) Dent # (Auto) (units ( unknown) date) (0-900) /uL unknown) (unknown) (no (unknown) (unknown) Dent # (Auto) 900 (units (unknown) date) (0-900) /uL unknown) (unknown) (no (unknown) (unknown) Dent % (Auto) (units ( unknown) date) (3-14) % unknown) (unknown) (no (unknown) (unknown) Dent % (Auto) 9.4 (units (unknown) date) (3-14) [...] Neut # (Auto) (units ( unknown) date) (9525-8963) /uL unknown) (unknown) (no (unknown) (unknown) Neut # (Auto) (units ( unknown) date) 8200 H (2929-7059) unknown) /uL (unknown) (no (unknown) (unknown) Neut [...] (4.5-11.0) X103/uL unknown) (unknown) (no (unknown) (unknown) [facility] (units (unknown) date) ER for evaluation [...] hands with strong (units (unknown) date) equal belt picker unknown) 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 unknown) (unknown) (no (unknown) (unknown) Accession Number: (units (unknown) date) [id number] ?? unknown) (unknown) (no (unknown) (unknown) Accession Number: (units (unknown) date) [id number] ?? unknown) (unknown) (no (unknown) (unknown) Acct:[id number] (units (unknown) date) unknown) (unknown) (no (unknown) [...] Date / Time (unknown) (no (unknown) (unknown) [place], [place] (units ( unknown) date) [address] unknown) (unknown) (no (unknown) (unknown) Approved by: [...] (unknown) (unknown) COMPARISON:? 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 Bilateral unknown) dnpa-fr-dnsdwxca pleural effusions, slightly (unknown) (no (unknown) (unknown) Lungs and pleura:? (units (unknown) date) Low lung volumes.? unknown) Possible mild right and retrocardiac basal (unknown) (no (unknown) (unknown) Lymph # (Auto) (units (unknown) date) (1610-1628) /uL unknown) (unknown) (no (unknown) (unknown) Lymph # (Auto) (units (unknown) date) 400 L (2586-2795) unknown) /uL (unknown) (no (unknown) (unknown) Lymph [...] date) unknown) (unknown) (no (unknown) (unknown) MR#: [id number] (units (unknown) date) unknown) (unknown) (no (unknown) [...] unknown) Recorded Confirmed (unknown) (no (unknown) (unknown) Limv-wy-jubnjrrc, (units (unknown) date) unknown) (unknown) (no (unknown) (unknown) Mode of arrival: (units (unknown) date) Wheelchair unknown) (unknown) (no (unknown) (unknown) Dent # (Auto) (units ( unknown) date) (0-900) /uL unknown) (unknown) (no (unknown) (unknown) Dent # (Auto) 900 (units (unknown) date) (0-900) /uL unknown) (unknown) (no (unknown) (unknown) Dent % (Auto) (units ( unknown) date) (3-14) % unknown) (unknown) (no (unknown) (unknown) Dent % (Auto) 9.4 (units (unknown) date) (3-14) [...] Neut # (Auto) (units ( unknown) date) (5325-0435) /uL unknown) (unknown) (no (unknown) (unknown) Neut # (Auto) (units ( unknown) date) 8200 H (1483-7731) unknown) /uL (unknown) (no (unknown) (unknown) Neut [...] (4.5-11.0) X103/uL unknown) (unknown) (no (unknown) (unknown) [facility] (units (unknown) date) ER for evaluation [...] hands with strong (units (unknown) date) equal belt picker unknown) 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's welfare [...] (unknown) date) unknown) (unknown) (no (unknown) (unknown) [id number] (units (unkno wn) date) unknown) (unknown) (no [...] (unknown) (unknown) : 1935 (units (unknown) date) Acct:[id number] unknown) (unknown) (no (unknown) (unknown) Date Patient [...] date) (RT-PCR) unknown) (unknown) (no (unknown) (unknown) [facility] (units (unknown) date) [address] unknown) [place] [address] (unknown) (no (unknown) (unknown) Laboratory (units (unk [...] wn) date) unknown) (unknown) (no (unknown) (unknown) Dent # (Auto) (units ( unknown) date) 900 unknown) (unknown) (no (unknown) (unknown) Dent # (Auto) (units ( unknown) date) unknown) (unknown) (no (unknown) (unknown) Dent % (Auto) (units ( unknown) date) 9.4 unknown) (unknown) (no (unknown) (unknown) Dent % (Auto) (units ( unknown) date) unknown) [...] (units (unkn own) date) Hawa Michael unknown) 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 Multiple (units (un known) date) ill-defined unknown) hypoattenuating mass lesions throughout the liver. The (unknown) (no (unknown) (unknown) [address] (units (unknown) date) unknown) (unknown) (no (unknown) (unknown) 2. Numerous small (units (unknown) date) hypoattenuating unknown) lesions throughout the spleen are also (unknown) (no (unknown) (unknown) ABDOMEN: (units (unkno wn) date) unknown) (unknown) (no (unknown) (unknown) Abdominal Nodes: (units (unknown) date) No retroperitoneal unknown) or mesenteric adenopathy by size criteria. (unknown) (no (unknown) (unknown) Accession Number: (units (unknown) date) [id number] unknown) (unknown) (no (unknown) (unknown) Adrenal Glands: (units (unknown) date) No adrenal unknown) nodules. (unknown) (no (unknown) (unknown) After the (units (unkn own) date) administration of unknown) IV contrast, axial sections were acquired from the (unknown) (no (unknown) (unknown) Age/Sex: 86 / M (units (unknown) date) Date of Service: unknown) (unknown) (no (unknown) (unknown) [place], [place] (units ( unknown) date) [address] unknown) (unknown) (no (unknown) (unknown) Approved by: [...] (unknown) (unknown) : 1935 (units (unknown) date) Acct:[id number] unknown) (unknown) (no (unknown) (unknown) Dictated by: [...] date) Excellent. unknown) (unknown) (no (unknown) (unknown) [facility] (units (unknown) date) unknown) (unknown) (no [...] (unknown) date) unknown) (unknown) (no (unknown) (unknown) [id number] (units (unkno wn) date) unknown) (unknown) (no [...] (unknown) (unknown) : 1935 (units (unknown) date) Acct:[id number] unknown) (unknown) (no (unknown) (unknown) Date Patient [...] date) (RT-PCR) unknown) (unknown) (no (unknown) (unknown) [facility] (units (unknown) date) [address] [place] [address] unknown) [place] [address] (unknown) (no (unknown) (unknown) Laboratory (units (unk [...] wn) date) unknown) (unknown) (no (unknown) (unknown) Dent # (Auto) (units ( unknown) date) 900 unknown) (unknown) (no (unknown) (unknown) Dent # (Auto) (units ( unknown) date) unknown) (unknown) (no (unknown) (unknown) Dent % (Auto) (units ( unknown) date) 9.4 unknown) (unknown) (no (unknown) (unknown) Dent % (Auto) (units ( unknown) date) unknown) [...] (units (unkn own) date) Hawa Michael unknown) DIRECTOR OF 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 (unknown) (no (unknown) (unknown) Pulse Oximetry (units [...] (unknown) Ur Specific (units (un known) date) [place] 1.020 unknown) (unknown) (no (unknown) (unknown) Ur Specific (units (un known) date) [place] unknown) (unknown) (no (unknown) (unknown) Ur Squamous [...] (unknown) date) unknown) (unknown) (no (unknown) (unknown) [id number] (units (unkno wn) date) unknown) (unknown) (no [...] (unknown) (unknown) : 1935 (units (unknown) date) Acct:[id number] unknown) (unknown) (no (unknown) (unknown) Date Patient [...] date) (RT-PCR) unknown) (unknown) (no (unknown) (unknown) [facility] (units (unknown) date) [address] unknown) [place] [address] (unknown) (no (unknown) (unknown) Laboratory (units (unk [...] 06/16/22 unknown) @ 21:27 by Hawa Michael [facility]) (unknown) (no (unknown) (unknown) Medication (units (unk nown) date) Instructions unknown) Recorded Confirmed Type (unknown) (no (unknown) (unknown) Meds (units (unkno wn) date) unknown) (unknown) (no (unknown) (unknown) Dent # (Auto) (units ( unknown) date) 900 unknown) (unknown) (no (unknown) (unknown) Dent # (Auto) (units ( unknown) date) unknown) (unknown) (no (unknown) (unknown) Dent % (Auto) (units ( unknown) date) 9.4 unknown) (unknown) (no (unknown) (unknown) Dent % (Auto) (units ( unknown) date) unknown) [...] (units (unkn own) date) Hawa Michael unknown) DIRECTOR OF VENDOR 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 (unknown) (no (unknown) (unknown) Psych: Patient (units [...] 06/16/22 unknown) @ 21:27 by Hawa Michael [facility]) (unknown) (no (unknown) (unknown) Temperature 98.1 [...] (unknown) Ur Specific (units (un known) date) [place] 1.020 unknown) (unknown) (no (unknown) (unknown) Ur Specific (units (un known) date) [place] unknown) (unknown) (no (unknown) (unknown) Ur Squamous [...] (unknown) (no date) (unknown) (unknown) 1.8 ng/ml 57766 -7 (unknown) (no date) (unknown) (unknown) 1.8 ng/ml (unkn own) (unknown) (no date) (unknown) (unknown) Negative (units (unkn own) unknown) (unknown) (no date) (unknown) (unknown) Negative (units 89467 -1 unknown) (unknown) (no date) (unknown) (unknown) Negative (units 04046 -3 unknown) (unknown) (no date) (unknown) (unknown) [...] (unknown) date) unknown) (unknown) (no (unknown) (unknown) [id number] (units (unkno wn) date) unknown) (unknown) (no [...] (unknown) (unknown) : 1935 (units (unknown) date) Acct:[id number] unknown) (unknown) (no (unknown) (unknown) Date Patient [...] date) (RT-PCR) unknown) (unknown) (no (unknown) (unknown) [facility] (units (unknown) date) [address] unknown) [place] [address] (unknown) (no (unknown) (unknown) Laboratory (units (unk [...] wn) date) unknown) (unknown) (no (unknown) (unknown) Dent # (Auto) (units ( unknown) date) 900 unknown) (unknown) (no (unknown) (unknown) Dent # (Auto) (units ( unknown) date) unknown) (unknown) (no (unknown) (unknown) Dent % (Auto) (units ( unknown) date) 9.4 unknown) (unknown) (no (unknown) (unknown) Dent % (Auto) (units ( unknown) date) unknown) [...] (units (unkn own) date) Hawa Michael unknown) DIRECTOR OF VENDOR 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 (unknown) (no (unknown) (unknown) Psych: Patient (units [...] (unknown) Ur Specific (units (un known) date) [place] 1.020 unknown) (unknown) (no (unknown) (unknown) Ur Specific (units (un known) date) [place] unknown) (unknown) (no (unknown) (unknown) Ur Squamous [...] nown) date) unknown) (unknown) (no (unknown) (unknown) [id number] (units (unkno wn) date) unknown) (unknown) (no (unknown) (unknown) 06/17/22 (units (unkno wn) date) unknown) (unknown) (no (unknown) (unknown) [address] [place] [address] (units (unknown) date) unknown) (unknown) (no (unknown) (unknown) Accession Number: (units (unknown) date) [id number] unknown) (unknown) (no (unknown) (unknown) Age/Sex: 86 / M (units (unknown) date) Date of Service: unknown) (unknown) (no (unknown) (unknown) [place], [place] (units ( unknown) date) [address] unknown) (unknown) (no (unknown) (unknown) Approved by: Feliberto (units (unknown) date) Azar Mendoza on unknown) 06/17/2022 at 10:08 (unknown) (no (unknown) (unknown) Biliary ducts: (units (unknown) date) Intrahepatic bile unknown) ducts are non-dilated. Extrahepatic bile (unknown) (no (unknown) (unknown) COMPARISON: (units (un known) date) [facility], unknown) CT, CT ABDOMEN PELVIS W CON, 06/16/2022, 21:22. (unknown) (no (unknown) (unknown) CT 06/16/2019 (units ( unknown) date) unknown) (unknown) (no (unknown) (unknown) : 1935 (units (unknown) date) Acct:[id number] unknown) (unknown) (no (unknown) (unknown) Diffusely (units [...] LIVER unknown) METS (unknown) (no (unknown) (unknown) [facility] (units (unknown) date) unknown) (unknown) (no [...] (unknown) date) unknown) (unknown) (no (unknown) (unknown) [id number] (units (unkno wn) date) unknown) (unknown) (no [...] (unknown) (unknown) : 1935 (units (unknown) date) Acct:[id number] unknown) (unknown) (no (unknown) (unknown) Date Patient [...] date) (RT-PCR) unknown) (unknown) (no (unknown) (unknown) [facility] (units (unknown) date) [address] unknown) [place] [address] (unknown) (no (unknown) (unknown) Laboratory (units (unk [...] wn) date) unknown) (unknown) (no (unknown) (unknown) Dent # (Auto) (units ( unknown) date) 900 unknown) (unknown) (no (unknown) (unknown) Dent # (Auto) (units ( unknown) date) unknown) (unknown) (no (unknown) (unknown) Dent % (Auto) (units ( unknown) date) 9.4 unknown) (unknown) (no (unknown) (unknown) Dent % (Auto) (units ( unknown) date) unknown) [...] (units (unkn own) date) Hawa Michael unknown) DIRECTOR OF VENDOR 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 (unknown) (no (unknown) (unknown) Psych: Patient (units [...] (unknown) Ur Specific (units (un known) date) [place] 1.020 unknown) (unknown) (no (unknown) (unknown) Ur Specific (units (un known) date) [place] unknown) (unknown) (no (unknown) (unknown) Ur Squamous [...] (unknown) date) unknown) (unknown) (no (unknown) (unknown) [id number] (units (unkno wn) date) unknown) (unknown) (no [...] (unknown) (unknown) : 1935 (units (unknown) date) Acct:[id number] unknown) (unknown) (no (unknown) (unknown) Date Patient [...] 06/17/22 unknown) @ 00:47 by Hawa Michael [facility]) (unknown) (no (unknown) (unknown) Father (units [...] date) (RT-PCR) unknown) (unknown) (no (unknown) (unknown) [facility] (units (unknown) date) [address] unknown) [place] [address] (unknown) (no (unknown) (unknown) Laboratory (units (unk [...] 06/17/22 unknown) @ 00:55 by Hawa Michael [facility]) (unknown) (no (unknown) (unknown) Medication (units (unk nown) date) Instructions unknown) Recorded Confirmed Type (unknown) (no (unknown) (unknown) Meds (units (unkno wn) date) unknown) (unknown) (no (unknown) (unknown) Dent # (Auto) 900 (units (unknown) date) unknown) (unknown) (no (unknown) (unknown) Dent # (Auto) (units ( unknown) date) unknown) (unknown) (no (unknown) (unknown) Dent % (Auto) 9.4 (units (unknown) date) unknown) (unknown) (no (unknown) (unknown) Dent % (Auto) (units ( unknown) date) unknown) [...] (units (unkn own) date) Hawa Michael unknown) DIRECTOR OF VENDOR 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 (unknown) (no (unknown) (unknown) Psych: Patient (units [...] 06/16/22 unknown) @ 21:27 by Hawa Michael [facility] (unknown) (no (unknown) (unknown) Temperature [...] (unknown) Ur Specific (units (un known) date) [place] 1.020 unknown) (unknown) (no (unknown) (unknown) Ur Specific (units (un known) date) [place] unknown) (unknown) (no (unknown) (unknown) Ur Squamous [...] unknown) pending, transaminitis (unknown) (no (unknown) (unknown) [id number] (units (unkno wn) date) unknown) (unknown) (no [...] (unknown) (unknown) : 1935 (units (unknown) date) Acct:[id number] unknown) (unknown) (no (unknown) (unknown) Date Patient [...] 06/17/22 unknown) @ 00:47 by Hawa Micheal [facility]) (unknown) (no (unknown) (unknown) Father (units [...] date) (RT-PCR) unknown) (unknown) (no (unknown) (unknown) [facility] (units (unknown) date) [address] unknown) [place] [address] (unknown) (no (unknown) (unknown) Laboratory (units (unk [...] wn) date) unknown) (unknown) (no (unknown) (unknown) Dent # (Auto) 900 (units (unknown) date) unknown) (unknown) (no (unknown) (unknown) Dent # (Auto) (units ( unknown) date) unknown) (unknown) (no (unknown) (unknown) Dent % (Auto) 9.4 (units (unknown) date) unknown) (unknown) (no (unknown) (unknown) Dent % (Auto) (units ( unknown) date) unknown) [...] (units (unkn own) date) Hawa Michael unknown) DIRECTOR OF VENDOR 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 (unknown) (no (unknown) (unknown) Psych: Patient (units [...] 06/16/22 unknown) @ 21:27 by Hawa Michael [facility]) (unknown) (no (unknown) (unknown) Temperature 98.1 [...] (unknown) Ur Specific (units (un known) date) [place] 1.020 unknown) (unknown) (no (unknown) (unknown) Ur Specific (units (un known) date) [place] unknown) (unknown) (no (unknown) (unknown) Ur Squamous [...] unknown) pending, transaminitis (unknown) (no (unknown) (unknown) [id number] (units (unkno wn) date) unknown) (unknown) (no [...] (unknown) (unknown) : 1935 (units (unknown) date) Acct:[id number] unknown) (unknown) (no (unknown) (unknown) Date Patient [...] 06/17/22 unknown) @ 00:47 by Hawa Michael DIRECTOR OF VENDOR MANAGEMENTJames) (unknown) (no (unknown) (unknown) Father (units (unknown) [...] date) (RT-PCR) unknown) (unknown) (no (unknown) (unknown) [facility] (units (unknown) date) [address] unknown) [place] [address] (unknown) (no (unknown) (unknown) Laboratory (units (unk [...] 06/17/22 unknown) @ 00:55 by Hawa Michael [facility]) (unknown) (no (unknown) (unknown) Medication (units (unk nown) date) Instructions unknown) Recorded Confirmed Type (unknown) (no (unknown) (unknown) Meds (units (unkno wn) date) unknown) (unknown) (no (unknown) (unknown) Dent # (Auto) 900 (units (unknown) date) unknown) (unknown) (no (unknown) (unknown) Dent # (Auto) (units ( unknown) date) unknown) (unknown) (no (unknown) (unknown) Dent % (Auto) 9.4 (units (unknown) date) unknown) (unknown) (no (unknown) (unknown) Dent % (Auto) (units ( unknown) date) unknown) [...] (units (unkn own) date) Hawa Michael unknown) DIRECTOR OF VENDOR 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 (unknown) (no (unknown) (unknown) Psych: Patient (units [...] (unknown) Ur Specific (units (un known) date) [place] 1.020 unknown) (unknown) (no (unknown) (unknown) Ur Specific (units (un known) date) [place] unknown) (unknown) (no (unknown) (unknown) Ur Squamous [...] unknown) pending, transaminitis (unknown) (no (unknown) (unknown) [id number] (units (unkno wn) date) unknown) (unknown) (no [...] (unknown) (unknown) : 1935 (units (unknown) date) Acct:[id number] unknown) (unknown) (no (unknown) (unknown) Date Patient [...] date) (RT-PCR) unknown) (unknown) (no (unknown) (unknown) [facility] (units (unknown) date) [address] [place] [address] unknown) [place] [address] (unknown) (no (unknown) (unknown) Laboratory (units (unk [...] (Updated 06/17/22 unknown) @ 00:55 [facility] (unknown) (no (unknown) (unknown) Medication (units (unk nown) date) Instructions unknown) Recorded Confirmed Type (unknown) (no (unknown) (unknown) Meds (units (unkno wn) date) unknown) (unknown) (no (unknown) (unknown) Dent # (Auto) 900 (units (unknown) date) unknown) (unknown) (no (unknown) (unknown) Dent # (Auto) (units ( unknown) date) unknown) (unknown) (no (unknown) (unknown) Dent % (Auto) 9.4 (units (unknown) date) unknown) (unknown) (no (unknown) (unknown) Dent % (Auto) (units ( unknown) date) unknown) [...] (units (unkn own) date) Hawa Michael unknown) DIRECTOR OF VENDOR 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 (unknown) (no (unknown) (unknown) Psych: Patient (units [...] (unknown) Ur Specific (units (un known) date) [place] 1.020 unknown) (unknown) (no (unknown) (unknown) Ur Specific (units (un known) date) [place] unknown) (unknown) (no (unknown) (unknown) Ur Squamous [...] unknown) pending, transaminitis (unknown) (no (unknown) (unknown) [id number] (units (unkno wn) date) unknown) (unknown) (no [...] (unknown) (unknown) : 1935 (units (unknown) date) Acct:[id number] unknown) (unknown) (no (unknown) (unknown) Date Patient [...] 06/17/22 unknown) @ 00:47 by Hawa Michael [facility]) (unknown) (no (unknown) (unknown) Father (units [...] date) (RT-PCR) unknown) (unknown) (no (unknown) (unknown) [facility] (units (unknown) date) [address] unknown) [place] [address] (unknown) (no (unknown) (unknown) Laboratory (units (unk [...] wn) date) unknown) (unknown) (no (unknown) (unknown) Dent # (Auto) 900 (units (unknown) date) unknown) (unknown) (no (unknown) (unknown) Dent # (Auto) (units ( unknown) date) unknown) (unknown) (no (unknown) (unknown) Dent % (Auto) 9.4 (units (unknown) date) unknown) (unknown) (no (unknown) (unknown) Dent % (Auto) (units ( unknown) date) unknown) [...] (units (unkn own) date) Hawa Michael unknown) DIRECTOR OF VENDOR 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 (unknown) (no (unknown) (unknown) Psych: Patient (units [...] 06/16/22 unknown) @ 21:27 by Hawa Michael [facility]) (unknown) (no (unknown) (unknown) Temperature 98.1 [...] (unknown) Ur Specific (units (un known) date) [place] 1.020 unknown) (unknown) (no (unknown) (unknown) Ur Specific (units (un known) date) [place] unknown) (unknown) (no (unknown) (unknown) Ur Squamous [...] 3+, leuks, RBC (unknown) (no (unknown) (unknown) [id number] (units (unkno wn) date) unknown) (unknown) (no [...] (unknown) (unknown) : 1935 (units (unknown) date) Acct:[id number] unknown) (unknown) (no (unknown) (unknown) Date Patient [...] 06/17/22 unknown) @ 00:47 by Hawa Michael [facility]) (unknown) (no (unknown) (unknown) Father (units [...] date) (RT-PCR) unknown) (unknown) (no (unknown) (unknown) [facility] (units (unknown) date) [address] unknown) [place] [address] (unknown) (no (unknown) (unknown) Laboratory (units (unk [...] wn) date) unknown) (unknown) (no (unknown) (unknown) Dent # (Auto) 900 (units (unknown) date) unknown) (unknown) (no (unknown) (unknown) Dent # (Auto) (units ( unknown) date) unknown) (unknown) (no (unknown) (unknown) Dent % (Auto) 9.4 (units (unknown) date) unknown) (unknown) (no (unknown) (unknown) Dent % (Auto) (units ( unknown) date) unknown) [...] (units (unkn own) date) Hawa Michael unknown) DIRECTOR OF VENDOR 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 (unknown) (no (unknown) (unknown) Psych: Patient (units [...] 06/16/22 unknown) @ 21:27 by Hawa Michael [facility]) (unknown) (no (unknown) (unknown) Temperature 98.1 [...] (unknown) Ur Specific (units (un known) date) [place] 1.020 unknown) (unknown) (no (unknown) (unknown) Ur Specific (units (un known) date) [place] unknown) (unknown) (no (unknown) (unknown) Ur Squamous [...] (units (unknown) date) surgery consult unknown) Dr. uTrner (unknown) (no (unknown) (unknown) -positive nitrate (units (unknown) date) urinalysis culture unknown) pending, transaminitis (unknown) (no (unknown) (unknown) -urinalysis (units (un known) date) brown, positive unknown) for protein, ketones, nitrites, bili 3+, leuks, RBC (unknown) (no (unknown) (unknown) [id number] (units (unkno wn) date) unknown) (unknown) (no [...] (unknown) (unknown) : 1935 (units (unknown) date) Acct:[id number] unknown) (unknown) (no (unknown) (unknown) Date Patient [...] date) (RT-PCR) unknown) (unknown) (no (unknown) (unknown) [facility] (units (unknown) date) [address] unknown) [place] [address] (unknown) (no (unknown) (unknown) Laboratory (units (unk [...] wn) date) unknown) (unknown) (no (unknown) (unknown) Dent # (Auto) 900 (units (unknown) date) unknown) (unknown) (no (unknown) (unknown) Dent # (Auto) (units ( unknown) date) unknown) (unknown) (no (unknown) (unknown) Dent % (Auto) 9.4 (units (unknown) date) unknown) (unknown) (no (unknown) (unknown) Dent % (Auto) (units ( unknown) date) unknown) [...] (units (unkn own) date) Hawa Michael unknown) DIRECTOR OF VENDOR 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 (unknown) (no (unknown) (unknown) Psych: Patient (units [...] 06/16/22 unknown) @ 21:27 by Hawa Michael [facility]) (unknown) (no (unknown) (unknown) Temperature 98.1 [...] (unknown) Ur Specific (units (un known) date) [place] 1.020 unknown) (unknown) (no (unknown) (unknown) Ur Specific (units (un known) date) [place] unknown) (unknown) (no (unknown) (unknown) Ur Squamous [...] 3+, leuks, RBC (unknown) (no (unknown) (unknown) [id number] (units (unkno wn) date) unknown) (unknown) (no [...] (unknown) (unknown) : 1935 (units (unknown) date) Acct:[id number] unknown) (unknown) (no (unknown) (unknown) DVT/VTE (units [...] 06/17/22 unknown) @ 00:47 by Hawa Michael [facility]) (unknown) (no (unknown) (unknown) Father (units [...] date) (RT-PCR) unknown) (unknown) (no (unknown) (unknown) [facility] (units (unknown) date) [address] unknown) [place] [address] (unknown) (no (unknown) (unknown) Laboratory (units (unk [...] 06/17/22 unknown) @ 00:55 by Hawa Michael [facility]) (unknown) (no (unknown) (unknown) Medication (units (unk nown) date) Instructions unknown) Recorded Confirmed Type (unknown) (no (unknown) (unknown) Meds (units (unkno wn) date) unknown) (unknown) (no (unknown) (unknown) Dent # (Auto) 900 (units (unknown) date) unknown) (unknown) (no (unknown) (unknown) Dent # (Auto) (units ( unknown) date) unknown) (unknown) (no (unknown) (unknown) Dent % (Auto) 9.4 (units (unknown) date) unknown) (unknown) (no (unknown) (unknown) Dent % (Auto) (units ( unknown) date) unknown) [...] (units (unkn own) date) Hawa Michael unknown) DIRECTOR OF VENDOR 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 (unknown) (no (unknown) (unknown) Psych: Patient (units [...] (unknown) Ur Specific (units (un known) date) [place] 1.020 unknown) (unknown) (no (unknown) (unknown) Ur Specific (units (un known) date) [place] unknown) (unknown) (no (unknown) (unknown) Ur Squamous [...] (unknown) -consult for (units (u nknown) date) PT/OT/SMALL PRODUCTS I ASSEMBLER-social unknown) work: Concerned patient is not safe [...] 3+, leuks, RBC (unknown) (no (unknown) (unknown) [id number] (units (unkno wn) date) unknown) (unknown) (no [...] (unknown) (unknown) : 1935 (units (unknown) date) Acct:[id number] unknown) (unknown) (no (unknown) (unknown) DVT/VTE (units [...] 06/17/22 unknown) @ 00:47 by Hawa Michael [facility]) (unknown) (no (unknown) (unknown) Father (units [...] date) (RT-PCR) unknown) (unknown) (no (unknown) (unknown) [facility] (units (unknown) date) [address] unknown) [place] [address] (unknown) (no (unknown) (unknown) Laboratory (units (unk [...] (Updated 06/17/22 unknown) @ 00:55 [facility] (unknown) (no (unknown) (unknown) Medication (units (unk nown) date) Instructions unknown) Recorded Confirmed Type (unknown) (no (unknown) (unknown) Meds (units (unkno wn) date) unknown) (unknown) (no (unknown) (unknown) Dent # (Auto) 900 (units (unknown) date) unknown) (unknown) (no (unknown) (unknown) Dent # (Auto) (units ( unknown) date) unknown) (unknown) (no (unknown) (unknown) Dent % (Auto) 9.4 (units (unknown) date) unknown) (unknown) (no (unknown) (unknown) Dent % (Auto) (units ( unknown) date) unknown) [...] (units (unkn own) date) Hawa Michael unknown) DIRECTOR OF VENDOR 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 (unknown) (no (unknown) (unknown) Psych: Patient (units [...] wn) date) By:<Electronically unknown) signed by Hawa [facility] Alec> (unknown) (no (unknown) (unknown) Skin: [...] 06/16/22 unknown) @ 21:27 by Hawa Michael [facility]) (unknown) (no (unknown) (unknown) Surrogate (units [...] (unknown) Ur Specific (units (un known) date) [place] 1.020 unknown) (unknown) (no (unknown) (unknown) Ur Specific (units (un known) date) [place] unknown) (unknown) (no (unknown) (unknown) Ur Squamous [...] consult (units (unknown) date) evaluations by unknown) PT/OT/SMALL PRODUCTS I ASSEMBLER. (unknown) (no (unknown) (unknown) wheezes, rhonchi, (units [...] (unknown) -consult for (units (u nknown) date) PT/OT/SMALL PRODUCTS I ASSEMBLER-social unknown) work: Concerned patient is not safe [...] 3+, leuks, RBC (unknown) (no (unknown) (unknown) [id number] (units (unkno wn) date) unknown) (unknown) (no [...] (unknown) (unknown) : 1935 (units (unknown) date) Acct:[id number] unknown) (unknown) (no (unknown) (unknown) DVT/VTE (units [...] 06/17/22 unknown) @ 00:47 by Hawa Michael [facility]) (unknown) (no (unknown) (unknown) Father (units [...] date) (RT-PCR) unknown) (unknown) (no (unknown) (unknown) [facility] (units (unknown) date) [address] unknown) [place] [address] (unknown) (no (unknown) (unknown) Laboratory (units (unk [...] 06/17/22 unknown) @ 00:55 by Hawa Michael [facility]) (unknown) (no (unknown) (unknown) Medication (units (unk nown) date) Instructions unknown) Recorded Confirmed Type (unknown) (no (unknown) (unknown) Meds (units (unkno wn) date) unknown) (unknown) (no (unknown) (unknown) Dent # (Auto) 900 (units (unknown) date) unknown) (unknown) (no (unknown) (unknown) Dent # (Auto) (units ( unknown) date) unknown) (unknown) (no (unknown) (unknown) Dent % (Auto) 9.4 (units (unknown) date) unknown) (unknown) (no (unknown) (unknown) Dent % (Auto) (units ( unknown) date) unknown) [...] (units (unkn own) date) Hawa Michael unknown) DIRECTOR OF VENDOR 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 (unknown) (no (unknown) (unknown) Psych: Patient (units [...] wn) date) By:<Electronically unknown) signed by [facility]> (unknown) (no (unknown) (unknown) Skin: [...] (unknown) Ur Specific (units (un known) date) [place] 1.020 unknown) (unknown) (no (unknown) (unknown) Ur Specific (units (un known) date) [place] unknown) (unknown) (no (unknown) (unknown) Ur Squamous [...] consult (units (unknown) date) evaluations by unknown) PT/OT/SMALL PRODUCTS I ASSEMBLER. (unknown) (no (unknown) (unknown) wheezes, rhonchi, (units [...] (unknown) date) unknown) (unknown) (no (unknown) (unknown) [id number] (units (unkno wn) date) unknown) (unknown) (no [...] date) Phosphatase unknown) (unknown) (no (unknown) (unknown) [place] given (units (unknown) date) there history of [...] (unknown) (unknown) : 1935 (units (unknown) date) Acct:[id number] unknown) (unknown) (no (unknown) (unknown) Date of Service: (units (unknown) date) 06/16/22 unknown) (unknown) (no (unknown) (unknown) Deep Vein (units (unkn own) date) Thrombosis/Pulmona unknown) ry Embolism Present on Admission: No (unknown) (no (unknown) (unknown) Diagnosed at (units (u nknown) date) [facility] unknown) [facility]. Urine culture (unknown) (no (unknown) [...] 06/17/22 unknown) @ 00:47 by Hawa Michael [facility]) (unknown) (no (unknown) (unknown) Father (units [...] (unknown) date) Dr. Weathers at the unknown) [facility]. He did not (unknown) (no (unknown) [...] (unknown) date) unknown) (unknown) (no (unknown) (unknown) [facility] (units (unknown) date) [address] unknown) [place] [address] (unknown) (no (unknown) (unknown) Laboratory (units (unk [...] by CASEY Crystal) (unknown) (no (unknown) (unknown) Dent # (Auto) (units ( unknown) date) [address] unknown) (unknown) (no (unknown) (unknown) Dent # (Auto) (units ( unknown) date) unknown) (unknown) (no (unknown) (unknown) Dent % (Auto) (units ( unknown) date) 13.3 unknown) (unknown) (no (unknown) (unknown) Dent % (Auto) (units ( unknown) date) unknown) [...] 06/16/22 unknown) @ 21:27 by Hawa Michael [facility]) (unknown) (no (unknown) (unknown) Suspect this (units (u nknown) date) reflected SIRS unknown) rather than sepsis. However, he does have evidence (unknown) (no (unknown) (unknown) Temperature 96.3 (units (unknown) date) F L unknown) (unknown) (no (unknown) (unknown) They did they (units ( unknown) date) might prefer to unknown) proceed with care at the [facility] (unknown) (no (unknown) (unknown) Time Spent [...] (unknown) Ur Specific (units (un known) date) [place] 1.020 unknown) (unknown) (no (unknown) (unknown) Ur Specific (units (un known) date) [place] unknown) (unknown) (no (unknown) (unknown) Ur Squamous [...] ( unknown) date) inflammatory unknown) pulmonary opacities. [id number] (unknown) (no (unknown) (unknown) is status post [...] and follows with (unknown) (no (unknown) (unknown) [id number] (units (unknown) date) n-left pleural unknown) effusions. [...] but no (unknown) (no (unknown) (unknown) the telecommunications line mechanic (units (unknown) date) regularly. unknown) (unknown) (no [...] (unknown) date) unknown) (unknown) (no (unknown) (unknown) [id number] (units (unkno wn) date) unknown) (unknown) (no [...] (unknown) (unknown) : 1935 (units (unknown) date) Acct:[id number] unknown) (unknown) (no (unknown) (unknown) Date of [...] 06/17/22 unknown) @ 00:47 by Hawa Michael [facility]) (unknown) (no (unknown) (unknown) Father (units [...] (unknown) date) Dr. Weathers at the unknown) [facility].? He did not (unknown) (no (unknown) (unknown) [...] (unknown) date) unknown) (unknown) (no (unknown) (unknown) [facility] (units (unknown) date) [address] [place] [address] unknown) [place] [address] (unknown) (no (unknown) (unknown) Laboratory (units (unk [...] 06/17/22 unknown) @ 00:55 by Hawa Michael [facility]) (unknown) (no (unknown) (unknown) Dent # (Auto) (units ( unknown) date) [address] unknown) (unknown) (no (unknown) (unknown) Dent # (Auto) (units ( unknown) date) unknown) (unknown) (no (unknown) (unknown) Dent % (Auto) (units ( unknown) date) 15.8 H unknown) (unknown) (no (unknown) (unknown) Dent % (Auto) (units ( unknown) date) unknown) [...] 06/16/22 unknown) @ 21:27 by Hawa Michael [facility]) (unknown) (no (unknown) (unknown) Temperature 96.8 [...] (units (unknown) date) serial f/u w/a unknown) telecommunications line mechanic at [facility] (unknown) (no (unknown) (unknown) alcohol intake: (units [...] ( unknown) date) inflammatory unknown) pulmonary opacities.? [id number] (unknown) (no (unknown) (unknown) liver and spleen [...] and follows with (unknown) (no (unknown) (unknown) [id number]-[id number]-[id number] (units (unknown) date) n-left pleural unknown) effusions.? There is additional note of the (unknown) (no (unknown) (unknown) scalp (units (unkno wn) date) approximately 2 unknown) years ago.? He describes having had a 7 an inch incision.? (unknown) (no (unknown) (unknown) the telecommunications line mechanic (units (unknown) date) regularly. unknown) (unknown) (no [...] (unknown) date) unknown) (unknown) (no (unknown) (unknown) [id number] (units (unkno wn) date) unknown) (unknown) (no [...] excursions symmetric, CTAB (unknown) (no (unknown) (unknown) BLEMISH REMOVER disease. (units (u nknown) date) unknown) (unknown) [...] (unknown) (unknown) : 1935 (units (unknown) date) Acct:[id number] unknown) (unknown) (no (unknown) (unknown) Date of Service: (units (unknown) date) 06/16/22 unknown) (unknown) (no (unknown) (unknown) Deep Vein (units (unkn own) date) Thrombosis/Pulmona unknown) ry Embolism Present on Admission: No (unknown) (no (unknown) (unknown) Diagnosed at (units (u nknown) date) [facility] Urine culture (unknown) (no (unknown) [...] (unknown) date) unknown) (unknown) (no (unknown) (unknown) [facility] (units (unknown) date) [address] unknown) [place] [address] (unknown) (no (unknown) (unknown) Laboratory (units (unk [...] 06/17/22 unknown) @ 00:55 by Hawa Michael [facility]) (unknown) (no (unknown) (unknown) Dent # (Auto) (units ( unknown) date) 1100 H unknown) (unknown) (no (unknown) (unknown) Dent # (Auto) (units ( unknown) date) unknown) (unknown) (no (unknown) (unknown) Dent % (Auto) (units ( unknown) date) 15.8 H unknown) (unknown) (no (unknown) (unknown) Dent % (Auto) (units ( unknown) date) unknown) [...] 06/16/22 unknown) @ 21:27 by Hawa Michael [facility]) (unknown) (no (unknown) (unknown) Suspect this [...] (units (unknown) date) serial f/u w/a unknown) telecommunications line mechanic (Dr. Reeder) at [facility] (unknown) (no (unknown) (unknown) ago.? He now [...] ( unknown) date) inflammatory unknown) pulmonary opacities.? Jxhm-vk-zwhsocyy (unknown) (no (unknown) (unknown) intervention or (units [...] biopsy and potential (unknown) (no (unknown) (unknown) xxpkc-eazghhu-mob (units (unknown) date) n-left pleural unknown) effusions.? [...] (unknown) date) unknown) (unknown) (no (unknown) (unknown) [id number] (units (unkno wn) date) unknown) (unknown) (no [...] excursions symmetric, CTAB (unknown) (no (unknown) (unknown) BLEMISH REMOVER disease. (units (u nknown) date) unknown) (unknown) [...] (unknown) (unknown) : 1935 (units (unknown) date) Acct:[id number] unknown) (unknown) (no (unknown) (unknown) Date of Service: (units (unknown) date) 06/16/22 unknown) (unknown) (no (unknown) (unknown) Deep Vein (units (unkn own) date) Thrombosis/Pulmona unknown) ry Embolism Present on Admission: No (unknown) (no (unknown) (unknown) Diagnosed at (units (u nknown) date) [facility] Urine culture (unknown) (no (unknown) [...] 06/17/22 unknown) @ 00:47 by Hawa Michael [facility]) (unknown) (no (unknown) (unknown) Father (units [...] this patient's care (unknown) (no (unknown) (unknown) [facility] (units (unknown) date) [address] unknown) [place] [address] (unknown) (no (unknown) (unknown) Laboratory (units (unk [...] by JOSE Crystal) (unknown) (no (unknown) (unknown) Dent # (Auto) (units ( unknown) date) 1000 H unknown) (unknown) (no (unknown) (unknown) Dent # (Auto) (units ( unknown) date) unknown) (unknown) (no (unknown) (unknown) Dent % (Auto) (units ( unknown) date) 15.4 H unknown) (unknown) (no (unknown) (unknown) Dent % (Auto) (units ( unknown) date) unknown) [...] 06/16/22 unknown) @ 21:27 by Hawa Michael [facility]-) (unknown) (no (unknown) (unknown) Suspect [...] nown) date) unknown) (unknown) (no (unknown) (unknown) [id number] (units (unkno wn) date) unknown) (unknown) (no (unknown) (unknown) 06/21/22 (units (unkno wn) date) unknown) (unknown) (no (unknown) (unknown) [address] [place] [address] (units (unknown) date) unknown) (unknown) (no (unknown) (unknown) Accession (units (unkn own) date) Number: unknown) [id number] (unknown) (no (unknown) (unknown) Age/Sex: 86 / M (units (unknown) date) Date of Service: unknown) (unknown) (no (unknown) (unknown) [place] (units ( unknown) date) [id number] unknown) (unknown) (no (unknown) (unknown) Approved by: (units (u nknown) date) Johnathan Lane unknown) Azar on 06/21/2022 at 15:07 (unknown) (no (unknown) (unknown) Biopsy site: (units (u nknown) date) Posterior right unknown) lobe of the liver (unknown) (no (unknown) (unknown) COMPARISON: (units (un known) date) [facility], unknown) CT, CT ABDOMEN PELVIS W CON, 06/16/2022, 21:22. (unknown) (no (unknown) (unknown) CT Scan Report (units (unknown) date) unknown) (unknown) (no (unknown) (unknown) CT guidance, a (units (unknown) date) core biopsy unknown) trocar and needle set was advanced to the biopsy (unknown) (no (unknown) (unknown) Complications: (units (unknown) date) None. unknown) (unknown) (no (unknown) (unknown) : 1935 (units (unknown) date) Acct:[id number] unknown) (unknown) (no (unknown) (unknown) Dictated by: [...] history of melanoma (unknown) (no (unknown) (unknown) [facility] (units (unknown) date) unknown) (unknown) (no [...] brought to the CT unknown) suite and credit analysis manager spiral CT imaging was (unknown) (no [...] Dr. Arianna Reeder, (unknown) (no (unknown) (unknown) [id number] (units (unkno wn) date) unknown) (unknown) (no [...] (unknown) (unknown) : 1935 (units (unknown) date) Acct:[id number] unknown) (unknown) (no (unknown) (unknown) Date Patient (units (u nknown) date) Seen: 06/19/22 unknown) (unknown) (no (unknown) (unknown) Date of Service: (units (unknown) date) 06/16/22 unknown) (unknown) (no (unknown) (unknown) Deep Vein (units (unkn own) date) Thrombosis/Pulmona unknown) ry Embolism Present on Admission: No (unknown) (no (unknown) (unknown) Diagnosed at (units (u nknown) date) [facility] Urine culture (unknown) (no (unknown) [...] 06/17/22 unknown) @ 00:47 by Hawa Michael [facility]) (unknown) (no (unknown) (unknown) Father (units [...] (unknown) date) unknown) (unknown) (no (unknown) (unknown) [facility] (units (unknown) date) [address] unknown) [place] [address] (unknown) (no (unknown) (unknown) Laboratory (units (unk [...] 06/17/22 unknown) @ 00:55 by Hawa Michael [facility]) (unknown) (no (unknown) (unknown) Dent # (Auto) (units ( unknown) date) 1000 H unknown) (unknown) (no (unknown) (unknown) Dent # (Auto) (units ( unknown) date) unknown) (unknown) (no (unknown) (unknown) Dent % (Auto) (units ( unknown) date) 15.4 H unknown) (unknown) (no (unknown) (unknown) Dent % (Auto) (units ( unknown) date) unknown) [...] 06/16/22 unknown) @ 21:27 by Hawa Michael [facility]) (unknown) (no (unknown) (unknown) Temperature 97.0 [...] unknown) date) unknown) (unknown) (no (unknown) (unknown) [id number] (units (unkno wn) date) unknown) (unknown) (no [...] date) unknown) (unknown) (no (unknown) (unknown) [address] [place] [address] (units (unknown) date) unknown) (unknown) (no (unknown) [...] (unknown) (unknown) Accession Number: (units (unknown) date) [id number] ?? unknown) (unknown) (no (unknown) (unknown) Accession Number: (units (unknown) date) [id number] ?? unknown) (unknown) (no (unknown) (unknown) Accession Number: (units (unknown) date) [id number] ?? unknown) (unknown) (no (unknown) (unknown) Acct:[id number] (units (unknown) date) unknown) (unknown) (no (unknown) [...] PO DAILY DAVID (unknown) (no (unknown) (unknown) [place], [place] (units ( unknown) date) [id number] unknown) (unknown) (no (unknown) (unknown) Apix[place] (units [...] (unknown) (unknown) COMPARISON:? 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 Bilateral unknown) buzd-sx-cdolkjsx pleural effusions, slightly (unknown) (no (unknown) (unknown) Lungs and pleura:? (units (unknown) date) Low lung volumes.? unknown) Possible mild right and retrocardiac basal (unknown) (no (unknown) (unknown) Lymph # (Auto) (units (unknown) date) (0537-5268) /uL unknown) (unknown) (no (unknown) (unknown) Lymph # (Auto) (units (unknown) date) 400 L (6383-5987) unknown) /uL (unknown) (no (unknown) (unknown) Lymph [...] date) unknown) (unknown) (no (unknown) (unknown) MR#: [id number] (units (unknown) date) unknown) (unknown) (no (unknown) [...] 06/17/22 unknown) @ 00:55 by Hawa Michael [facility]) (unknown) (no (unknown) (unknown) Medical decision (units (unknown) date) making narrative: unknown) (unknown) (no (unknown) (unknown) Medical records (units (unknown) date) reviewed: ER unknown) visits from a few days ago (unknown) (no (unknown) (unknown) Medication (units (unk nown) date) Instructions unknown) Recorded Confirmed (unknown) (no (unknown) (unknown) Zyvl-uh-ysmhevab, (units (unknown) date) unknown) (unknown) (no (unknown) (unknown) Mode of arrival: (units (unknown) date) Wheelchair unknown) (unknown) (no (unknown) (unknown) Dent # (Auto) (units ( unknown) date) (0-900) /uL unknown) (unknown) (no (unknown) (unknown) Dent # (Auto) 900 (units (unknown) date) (0-900) /uL unknown) (unknown) (no (unknown) (unknown) Dent % (Auto) (units ( unknown) date) (3-14) % unknown) (unknown) (no (unknown) (unknown) Dent % (Auto) 9.4 (units (unknown) date) (3-14) [...] Neut # (Auto) (units ( unknown) date) (1375-0057) /uL unknown) (unknown) (no (unknown) (unknown) Neut # (Auto) (units ( unknown) date) 8200 H (7154-7224) unknown) /uL (unknown) (no (unknown) (unknown) Neut [...] (4.5-11.0) X103/uL unknown) (unknown) (no (unknown) (unknown) [facility] (units (unknown) date) ER for evaluation [...] hands with strong (units (unknown) date) equal belt picker unknown) 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's welfare [...] a follow-up ultrasound-guided (unknown) (no (unknown) (unknown) [id number] (units (unkno wn) date) unknown) (unknown) (no (unknown) (unknown) 06/20/22 (units (unkno wn) date) unknown) (unknown) (no (unknown) (unknown) [address] (units (unknown) date) unknown) (unknown) (no (unknown) (unknown) 1st rib, (units (unkno wn) date) unknown) (unknown) (no (unknown) (unknown) Accession (units (unkn own) date) Number: unknown) [id number] (unknown) (no (unknown) (unknown) Additional (units (unk nown) date) findings: unknown) (unknown) (no (unknown) (unknown) After the (units (unkn own) date) administration of unknown) intravenous contrast, 3.0 mm axial sections (unknown) (no (unknown) (unknown) Age/Sex: 86 / M (units (unknown) date) Date of Service: unknown) (unknown) (no (unknown) (unknown) [place] (units ( unknown) date) [address] unknown) (unknown) (no (unknown) (unknown) Approved by: [...] (unknown) (unknown) COMPARISON: (units (un known) date) [facility], unknown) CT, CT CHEST W [facility], 06/16/2022, 14:03. [place] (unknown) (no (unknown) (unknown) CT HEAD/BRAIN WO (units (unknown) date) CON, 06/16/2022, unknown) 14:03. (unknown) (no (unknown) (unknown) CT Scan Report (units (unknown) date) unknown) (unknown) (no (unknown) (unknown) : 1935 (units (unknown) date) Acct:[id number] unknown) (unknown) (no (unknown) (unknown) Dictated by: [...] date) Excellent. unknown) (unknown) (no (unknown) (unknown) [facility] (units (unknown) date) unknown) (unknown) (no [...] (unknown) date) unknown) (unknown) (no (unknown) (unknown) [id number] (units (unkno wn) date) unknown) (unknown) (no [...] (unknown) (unknown) : 1935 (units (unknown) date) Acct:[id number] unknown) (unknown) (no (unknown) (unknown) Date Patient [...] (Reviewed 06/17/22 unknown) @ 00:47 [facility] (unknown) (no (unknown) (unknown) [...] this patient's care (unknown) (no (unknown) (unknown) [facility] (units (unknown) date) [address] unknown) [place] [address] (unknown) (no (unknown) (unknown) Laboratory (units (unk [...] by JOSE Crystal) (unknown) (no (unknown) (unknown) Dent # (Auto) (units ( unknown) date) 1000 H unknown) (unknown) (no (unknown) (unknown) Dent % (Auto) (units ( unknown) date) 14.7 [...] 06/16/22 unknown) @ 21:27 by Hawa Michael [facility]) (unknown) (no (unknown) (unknown) Temperature 97.1 [...] Reeder and updated (unknown) (no (unknown) (unknown) [id number] (units (unkno wn) date) unknown) (unknown) (no [...] (unknown) (unknown) : 1935 (units (unknown) date) Acct:[id number] unknown) (unknown) (no (unknown) (unknown) Date Patient (units (u nknown) date) Seen: 06/20/22 unknown) (unknown) (no (unknown) (unknown) Date of Service: (units (unknown) date) 06/16/22 unknown) (unknown) (no (unknown) (unknown) Deep Vein (units (unkn own) date) Thrombosis/Pulmona unknown) ry Embolism Present on Admission: No (unknown) (no (unknown) (unknown) Diagnosed at (units (u nknown) date) [facility] unknown) [facility] Emergency Department.? Urine culture (unknown) (no (unknown) [...] 06/17/22 unknown) @ 00:47 by Hawa Michael [facility]) (unknown) (no (unknown) (unknown) Father (units [...] (unknown) date) unknown) (unknown) (no (unknown) (unknown) [facility] (units (unknown) date) [address] unknown) [place] [address] (unknown) (no (unknown) (unknown) Laboratory (units (unk [...] by JOSE Crystal) (unknown) (no (unknown) (unknown) Dent # (Auto) (units ( unknown) date) 1000 H unknown) (unknown) (no (unknown) (unknown) Dent % (Auto) (units ( unknown) date) 14.7 [...] (unknown) (unknown) Provider: (units (unkn own) date) Tomym Wells unknown) D.O. (unknown) (no (unknown) (unknown) [...] 06/16/22 unknown) @ 21:27 by Hawa Michael [facility]) (unknown) (no (unknown) (unknown) Temperature 97.1 [...] over the last few (units (unknown) date) months.?Director Of Services unknown) consulted. (unknown) (no (unknown) (unknown) today; [...] (unknown) (no date) (unknown) (unknown) Comment: (units 03001 -1 unknown) (unknown) (no date) (unknown) (unknown) Comment: (units (unkn own) unknown) Result panel 268 (unknown) (no (unknown) (unknown) (no value) (units (unk nown) date) unknown) (unknown) (no (unknown) (unknown) (past 8 hours): (units (unknown) date) unknown) (unknown) (no (unknown) (unknown) [id number] (units (unkno wn) date) unknown) (unknown) (no [...] (unknown) (unknown) : 1935 (units (unknown) date) Acct:[id number] unknown) (unknown) (no (unknown) (unknown) Date Patient [...] (unknown) date) unknown) (unknown) (no (unknown) (unknown) [facility] (units (unknown) date) [address] unknown) [place] [address] (unknown) (no (unknown) (unknown) Labs (units (unkno [...] Reeder and updated (unknown) (no (unknown) (unknown) [id number] (units (unkno wn) date) unknown) (unknown) (no [...] (unknown) (unknown) : 1935 (units (unknown) date) Acct:[id number] unknown) (unknown) (no (unknown) (unknown) Date Patient (units (u nknown) date) Seen: 06/20/22 unknown) (unknown) (no (unknown) (unknown) Date of Service: (units (unknown) date) 06/16/22 unknown) (unknown) (no (unknown) (unknown) Deep Vein (units (unkn own) date) Thrombosis/Pulmona unknown) ry Embolism Present on Admission: No (unknown) (no (unknown) (unknown) Diagnosed at (units (u nknown) date) [facility] Urine culture (unknown) (no (unknown) [...] (unknown) date) unknown) (unknown) (no (unknown) (unknown) [facility] (units (unknown) date) [address] unknown) [place] [address] (unknown) (no (unknown) (unknown) Labs (units (unkno [...] 06/16/22 unknown) @ 21:27 by Hawa Michael [facility]-) (unknown) (no (unknown) (unknown) Temperature [...] over the last few (units (unknown) date) months.?Director Of Services unknown) consulted. (unknown) (no (unknown) (unknown) today. [...] date) unknown) (unknown) (no (unknown) (unknown) [address] [place] [address] (units (unknown) date) [address], unknown) [place], [place] [id number] (unknown) (no (unknown) (unknown) [id number] (units (unkno wn) date) unknown) (unknown) (no (unknown) (unknown) [place] (units ( unknown) date) [address] unknown) (unknown) (no (unknown) (unknown) As part [...] description: . unknown) (unknown) (no (unknown) (unknown) [facility] (units (unknown) date) unknown) (unknown) (no (unknown) (unknown) [facility] Accession (units ( unknown) date) Number: unknown) [id number] (unknown) (no (unknown) (unknown) LIVER TISSUE: (units ( unknown) date) unknown) (unknown) (no (unknown) (unknown) [facility] (units (unknown) date) [place] [facility] unknown) (unknown) (no (unknown) (unknown) Liver, Needle (units ( unknown) date) Core Biopsies: unknown) (unknown) (no (unknown) (unknown) MD Donovan Mckenzie (units (unknown) date) Phone: unknown) [phone] (unknown) (no (unknown) (unknown) (units (unknown) date) Dictating Dr: unknown) Tommy Molina MD (unknown) (no (unknown) (unknown) MRV 06/23/2022 (units (unknown) date) [address] unknown) (unknown) (no (unknown) (unknown) Material (units (unkno wn) date) submitted: . unknown) (unknown) (no (unknown) (unknown) Tommy Szymanski (units (unkn own) date) MD Jesse, PhD, unknown) Pathologist (unknown) (no (unknown) (unknown) NPI- [id number] (units (unknown) date) unknown) (unknown) (no (unknown) [...] (unknown) date) unknown) (unknown) (no (unknown) (unknown) [id number] (units (unkno wn) date) unknown) (unknown) (no [...] unknown) (unknown) (no (unknown) (unknown) Consult to [employer] I ASSEMBLER - (units (unknown) date) Air Conditioning Service Technician unknown) Routine (unknown) (no (unknown) (unknown) Consult [...] (unknown) (unknown) : 1935 (units (unknown) date) Acct:[id number] unknown) (unknown) (no (unknown) (unknown) Date Patient [...] 06/17/22 unknown) @ 00:47 by Hawa Michael [facility]) (unknown) (no (unknown) (unknown) Father (units [...] twice a day (unknown) (no (unknown) (unknown) [facility] (units (unknown) date) [address] unknown) [place] [address] (unknown) (no (unknown) (unknown) Labs (units (unkno wn) date) unknown) (unknown) (no (unknown) (unknown) Lucien Lan (units (unknown) date) MD Yudi [Primary unknown) Care Provider] (unknown) (no (unknown) (unknown) [employer]ER Consult (units (un known) date) needed for:: unknown) [facility] (unknown) (no (unknown) (unknown) Medical History (units (unknown) date) (Updated 06/17/22 unknown) @ 00:55 [facility] (unknown) (no (unknown) (unknown) [...] (units (unknown) date) Set up HH unknown) RN/PT/OT/INFORMATION TECHNOLOGY TECHNICIAN for discharge home (unknown) (no (unknown) (unknown) [...] 06/16/22 unknown) @ 21:27 by Hawa Michael [facility]) (unknown) (no (unknown) (unknown) Upon admit [...] Reeder and updated (unknown) (no (unknown) (unknown) [id number] (units (unkno wn) date) unknown) (unknown) (no [...] unknown) (unknown) (no (unknown) (unknown) Consult to [employer] ASSEMBLER - (units (unknown) date) Air Conditioning Service Technician unknown) Routine (unknown) (no (unknown) (unknown) Consult [...] (unknown) (unknown) : 1935 (units (unknown) date) Acct:[id number] unknown) (unknown) (no (unknown) (unknown) Date Patient [...] (u nknown) date) [facility] unknown) [facility] Emergency Department.? Urine culture (unknown) (no (unknown) [...] 06/17/22 unknown) @ 00:47 by Hawa Michael [facility]) (unknown) (no (unknown) (unknown) Father (units [...] are negative to (unknown) (no (unknown) (unknown) [facility] (units (unknown) date) [address] [place] [address] unknown) [place] [address] (unknown) (no (unknown) (unknown) Labs (units (unkno wn) date) unknown) (unknown) (no (unknown) (unknown) Lucien Lan (units (unknown) date) MD Yudi [Primary unknown) Care Provider] (unknown) (no (unknown) (unknown) MNA 10 (at risk (units (unknown) date) for malnutrition), unknown) diet recall suggesting inadequate (unknown) (no (unknown) (unknown) [employer] ASSEMBLER Consult (units (un known) date) needed for:: [...] (units (unknown) date) Set up HH unknown) RN/PT/OT/INFORMATION TECHNOLOGY TECHNICIAN for discharge home (unknown) (no (unknown) (unknown) [...] over the last few (units (unknown) date) months.?Director Of Services unknown) consulted. (unknown) (no (unknown) (unknown) pacemaker [...] (unknown) date) unknown) (unknown) (no (unknown) (unknown) [id number] (units (unkno wn) date) unknown) (unknown) (no [...] unknown) (unknown) (no (unknown) (unknown) Consult to [employer] ASSEMBLER - (units (unknown) date) Air Conditioning Service Technician unknown) Routine (unknown) (no (unknown) (unknown) Consult [...] (unknown) (unknown) : 1935 (units (unknown) date) Acct:[id number] unknown) (unknown) (no (unknown) (unknown) Date Patient [...] (Reviewed 06/17/22 unknown) @ 00:47 by [facility]) (unknown) (no (unknown) (unknown) [...] twice a day (unknown) (no (unknown) (unknown) [facility] (units (unknown) date) [address] unknown) [place] [address] (unknown) (no (unknown) (unknown) Labs (units (unkno wn) date) unknown) (unknown) (no (unknown) (unknown) Lucien Lan (units (unknown) date) MD Yudi [Primary unknown) Care Provider] (unknown) (no (unknown) (unknown) MNA 10 (at risk (units (unknown) date) for malnutrition), unknown) diet recall suggesting inadequate (unknown) (no (unknown) (unknown) [employer] ASSEMBLER Consult (units (un known) date) needed for:: unknown) [facility] Need (unknown) (no (unknown) (unknown) Medical History (units (unknown) date) (Updated 06/17/22 unknown) @ 00:55 by Hawa Michael [facility]) (unknown) (no (unknown) (unknown) Mother (units [...] (units (unknown) date) Set up HH unknown) RN/PT/OT/INFORMATION TECHNOLOGY TECHNICIAN for discharge home (unknown) (no (unknown) (unknown) [...] 06/16/22 unknown) @ 21:27 by Hawa Michael [facility]) (unknown) (no (unknown) (unknown) This is [...] (unknown) date) unknown) (unknown) (no (unknown) (unknown) [id number] (units (unkno wn) date) unknown) (unknown) (no [...] unknown) (unknown) (no (unknown) (unknown) Consult to [employer] ASSEMBLER - (units (unknown) date) Air Conditioning Service Technician unknown) Routine (unknown) (no (unknown) (unknown) Consult [...] (unknown) (unknown) : 1935 (units (unknown) date) Acct:[id number] unknown) (unknown) (no (unknown) (unknown) Date Patient [...] (Reviewed 06/17/22 unknown) @ 00:47 by [facility] (unknown) (no (unknown) (unknown) [...] twice a day (unknown) (no (unknown) (unknown) [facility] (units (unknown) date) [address] unknown) [place] [address] (unknown) (no (unknown) (unknown) Labs (units (unkno wn) date) unknown) (unknown) (no (unknown) (unknown) Lucien Lan (units (unknown) date) MD Yudi [Primary unknown) Care Provider] (unknown) (no (unknown) (unknown) [facility] 10 (at risk (units (unknown) date) for malnutrition), unknown) diet recall suggesting inadequate (unknown) (no (unknown) (unknown) [employer] Consult (units (un known) date) needed for:: unknown) [facility] (unknown) (no (unknown) (unknown) Medical History (units (unknown) date) (Updated 06/17/22 unknown) @ 00:55 by Hawa Michael [facility]) (unknown) (no (unknown) (unknown) Mother (units [...] (units (unknown) date) Set up HH unknown) RN/PT/OT/INFORMATION TECHNOLOGY TECHNICIAN for discharge home (unknown) (no (unknown) (unknown) [...] 06/16/22 unknown) @ 21:27 by Hawa Michael [facility]) (unknown) (no (unknown) (unknown) This is [...] facility 2022-06-16 00:00 Never smoked tobacco (finding) [facility] 2022-06-16 00:00 Smoker (finding) [facility] Vital Signs date measurement value units [...]
[2022-08-11 09:15] LABS: BILIRUBIN,URINE NEGATIVE (NEGATIVE); GLUCOSE, URINE (UA) NEGATIVE (NEGATIVE); KETONES,URINE (UA) NEGATIVE (NEGATIVE); LEUKOCYTE ESTERASE, URINE NEGATIVE (NEGATIVE); NITRITE,URINE NEGATIVE (NEGATIVE); OCCULT BLOOD,URINE MODERATE (NEGATIVE); PROTEIN,URINE NEGATIVE (NEGATIVE); UROBILINOGEN,URINE 0.2 (NORMAL) E.U./dL (NORMAL)
[2022-08-11 09:23] LABS: BACTERIA,URINE None Seen /HPF (None Seen); CLARITY,URINE SL. CLOUDY (CLEAR); CRYSTALS,URINE 11-25 Ca Oxalate /LPF; SQUAMOUS EPITHELIAL CELL,UR NONE SEEN (<= Few)
[2022-08-11] MEDS ORDERED: iohexoL-300 100 ML VIAL IVP ONE (09:27)
--- NOTE | 2022-08-11 09:41 | CT Report ---
PROCEDURE: ABDOMEN/PELVIS W INDICATIONS: R upper abd pain CONTRAST: 100ml omni 300 TECHNIQUE: After the administration of IV contrast, 5 mm thick sections acquired from the diaphragms to the symp hysis. 5 mm thick coronal and sagittal reformats were acquired. For radiation dose reduction, the f ollowing was used: automated exposure control, adjustment of mA and/or kV according to patient size. COMPARISON: CT abdomen pelvis 07/20/2022 FINDINGS: Image quality: Excellent. Lung bases and heart: Mild bilateral effusions, persistent although decreased compared to prior exam. The heart is enlarged. Liver: Persistent numerous hepatic hypodensities the largest in the posterior lobe measuring 3.9 x 4. 6 cm, compared to 3.4 x 3.6 cm. Overall there appears to be interval increase in size diffusely throu ghout the lesions.. Gallbladder and biliary tree: No stones or wall thickening. Spleen: Multiple splenic hypodensities are again identified appearing mildly increased in size and nu mber and the largest posterior medial measuring 1.1 x 1.5 cm on series 3 image 25 compared to 0.5 x 0 .9 cm. Pancreas: Low-attenuation is present in the splenic tail measuring 1 cm on series 3 image 24. This ma y been present on prior exam measuring approximately 5 mm although this region is not well visualized secondary to volume averaging and motion on prior study. Adrenals: Unremarkable. Kidneys and ureters: Simple right renal cyst is present. Bowel and peritoneum: No bowel distension. No pathologic free fluid. Colonic diverticula are present. Lymph nodes: No central or retroperitoneal adenopathy. Vessels: Unremarkable. PELVIS Reproductive organs: Unremarkable. Bladder: Unremarkable. Lymph nodes: Unremarkable. Bones: No aggressive osseous abnormality. Other: None. IMPRESSION: Increased appearance of hepatic and splenic hypodensities as described above. Etiology remains uncert ain with the differential most consistent with metastatic disease or potentially microabscesses. Whil e the more posterior collection the liver could be drainable, overall appearance is suggestive of com plex fluid and given timeframe likely to be at least partially solidified. New versus enlarged pancreatic hypodensity, possibly related to same process affecting liver and sple en. Diverticulosis. Reviewed by: Jerica Adamson MD on 08/11/2022 9:39 AM PDT Approved by: Jerica Adamson MD on 08/11/2022 9:39 AM PDT Station ID: [id number]
--- NOTE | 2022-08-11 10:11 | Ultrasound Report ---
PROCEDURE: Abdomen Limited INDICATIONS: RUQ abd pain TECHNIQUE: Real-time focused scanning was performed of the abdomen, with image documentation. COMPARISONS: None. FINDINGS: Liver: Liver is enlarged measuring 18.1 cm with overall appearance of multiple areas of decreased ec hogenicity corresponding to CT findings. Gallbladder: No stones. Wall is thickened measuring 4.1 cm. Biliary ducts: Intrahepatic bile ducts are non-dilated. Extrahepatic bile duct caliber measures 4.6 mm. Normal is 6-7 mm or less in diameter, or 10 mm or less post-cholecystectomy. Pancreas: Visualized portions of the pancreas are sonographically normal. Right kidney: Normal in size and echotexture. Right kidney measures 10.6 cm long. No hydronephrosis or nephrolithiasis. No solid masses. No complex renal cystic lesions which require follow-up. Aorta: Visualized aorta is normal in caliber at less than 3 cm. IVC: Intrahepatic inferior vena cava is patent. Miscellaneous: No free abdominal fluid. IMPRESSION: Overall appearance of hepatic foci of decreased echogenicity corresponding to CT findings. As previou sly identified, these could represent small areas of microabscesses or metastatic disease. Gallbladder wall appears prominent. This may be related to hepatic disease as no stones are identifie d. Reviewed by: Jerica Adamson MD on 08/11/2022 10:10 AM PDT Approved by: Jerica Adamson MD on 08/11/2022 10:10 AM PDT Station ID: [id number]
[2022-08-11 10:54] LABS: INR 1.1 (0.8-1.2); PT - PROTHROMBIN TIME 12.5 secs (9.9-12.6)
[2022-08-11 11:01] LABS: PARTIAL THROMBOPLASTIN TIME 32.3 secs (24.9-33.3)
[2022-08-11] MEDS ORDERED: SODIUM CHLORIDE 0.9% 1,000 ML IV STA (11:41)
[2022-08-11] MEDS ORDERED: oxyCODONE 5 MG TABLET PO STA (11:51)
[2022-08-11 13:24] VITALS: BP 154/63
== END 2022-08-11 13:24 | disposition home or self-care (01) ==
LOC: EDUNIT# → ED 07:57
DX: E86.0 Dehydration (principal); D64.9 Anemia, unspecified; C79.9 Secondary malignant neoplasm of unspecified site; F03.90 Unspecified dementia, unspecified severity, without behavioral disturbance, psychotic disturbance, mood disturbance, and anxiety; I10 Essential (primary) hypertension; I48.91 Unspecified atrial fibrillation; Z79.01 Long term (current) use 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s; Z95.0 Presence of cardiac pacemaker; Z96.0 Presence of urogenital implants
CPT/HCPCS: 36415; 74177; 76705; 80053; 81001; 83690; 85025; 85610; 85730; 96361; 96374; 99284; A9270; J1170; Q9967; 81003; 87086

== ENCOUNTER 2022-08-11 13:21 | Outpatient (CLI) | payer MEDICARE, OTHER | END 2022-08-11 23:59 | disposition home or self-care (01) | LOC: EMS 13:21 | PROVIDERS: ATTEND Emergency Medicine | DX: Z51.5 Encounter for palliative care (principal); G89.3 Neoplasm related pain (acute) (chronic); F03.90 Unspecified dementia, unspecified severity, without behavioral disturbance, psychotic disturbance, mood disturbance, and anxiety | CPT/HCPCS: A0425; A0428 ==

== ENCOUNTER 2022-08-24 07:22 | Outpatient (CLI) | payer MEDICARE, OTHER | END 2022-08-24 07:23 | disposition critical access hospital (66) | LOC: EMS 07:22 | DX: R10.84 Generalized abdominal pain (principal); R41.0 Disorientation, unspecified; R50.9 Fever, unspecified | CPT/HCPCS: A0425; A0429 ==

== ENCOUNTER 2022-08-24 07:35 | Emergency (ER) | payer MEDICARE, OTHER ==
[2022-08-24] MEDS ORDERED: SODIUM CHLORIDE 0.9% 1,000 ML IV STA (07:43)
[2022-08-24 07:59] LABS: BASOPHILS # (AUTO) 0.1 10^3/uL (0.0-0.1); BASOPHILS % (AUTO) 0.4 %; EOSINOPHILS % (AUTO) 0.1 %; HCT - HEMATOCRIT 32.3 % (42.0-52.0); HGB - HEMOGLOBIN 10.1 g/dL (14.0-18.0); LYMPHOCYTES # (AUTO) 0.5 10^3/uL (1.5-3.5); LYMPHOCYTES % (AUTO) 3.4 %; MEAN CORPUSCULAR HEMOGLOBIN 28.2 pg (27.0-31.0); MEAN CORPUSCULAR HGB CONC 31.3 g/dL (32.0-36.0); MEAN CORPUSCULAR VOLUME 90.2 fL (80.0-94.0); MEAN PLATELET VOLUME 8.6 fL (7.4-11.4); MONOCYTES # (AUTO) 0.5 10^3/uL (0.0-1.0); MONOCYTES % (AUTO) 3.7 %; NEUTROPHILS # (AUTO) 12.8 10^3/uL (1.5-6.6); NEUTROPHILS % (AUTO) 91.9 %; PLT - PLATELET COUNT 375 10^3/uL (130-450); RED BLOOD COUNT 3.58 10^6/uL (4.70-6.10); RED CELL DISTRIBUTION WIDTH 15.7 % (12.0-15.0); WHITE BLOOD COUNT 13.9 x10^3/uL (4.8-10.8)
--- NOTE | 2022-08-24 08:09 | XRAY Report ---
PROCEDURE: Chest 1 View X-Ray INDICATIONS: chest pain TECHNIQUE: One view of the chest was acquired. COMPARISON: Lung bases on CT abdomen and pelvis 08/11/2022. CXR 07/21/2022. FINDINGS: Surgical changes and devices: Left pacemaker. Clips at the right neck. Lungs and pleura: No pneumothorax. No large pleural effusion is identified. Lungs appear clear. Mediastinum: Mediastinal contours appear unchanged. Heart size is normal. Bones and chest wall: No suspicious bony lesions. Degenerative change at the shoulders. Overlying so ft tissues appear unremarkable. IMPRESSION: No acute cardiopulmonary abnormality. Reviewed by: Doug Wilcox MD on 08/24/2022 8:07 AM PDT Approved by: Doug Wilcox MD on 08/24/2022 8:07 AM PDT Station ID: [id number]
--- OUTSIDE RECORDS SUMMARY | 2022-08-24 08:11 | EXTERNAL MEDICAL SUMMARY RPT | Continuity of Care Document ---
:1935 Author Organization [facility] Address [address] [place] [address] Phone Care Team Providers Name Role Phone Unavailable Unavailable Unavailable Lucien Lan Unavailable Unavailable Allergies and Intolerances date description facility type (no date) pneumococcal 7-valent conjugate to [facility] (unknown) Encounters No information. Functional Status No information. Immunizations No information. Medications date description facility 2022-06-16 00:00 Apixaban [facility] 2022-06-16 00:00 Amlodipine [facility] 2022-06-16 00:00 Gabapentin [facility] Problems date description facility 2022-06-16 00:00 Sepsis [facility] 2022-06-16 00:00 Atrial fibrillation [facility] 2022-06-16 00:00 Urinary tract infection [facility] 2022-06-16 00:00 Confusion [facility] 2022-06-16 00:00 Elevated [facility]amin[facility] 2022-06-16 00:00 Body mass index (BMI) of 22.0 to 22.9 i n adult [facility] 2022-06-16 00:00 Presence of cardiac pacemaker [facility] 2022-06-17 00:00 Primary hypertension [facility] 2022-06-17 00:00 Asthma [facility] 2022-06-17 00:00 Impaired cognition [facility] 2022-06-17 00:00 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 [facility] 2022-06-19 13:52 Sepsis, unspecified organism [facility] 2022-06-22 08:33 Sepsis, unspecified organism [facility] 2022-06-22 11:44 Sepsis, unspecified organism [facility] 2022-06-22 14:32 Sepsis, unspecified organism [facility] 2022-06-27 14:23 Sepsis, unspecified organism [facility] 2022-06-27 14:43 Sepsis, unspecified organism [facility] Procedures date description facility 2022-06-16 00:00 Computed tomography of head or brain wi [facility] contrast 2022-06-21 00:00 Gram Stain [facility] 2022-06-20 00:00 CT soft tissue neck w [facility] 2022-06-16 00:00 X-ray of chest, single view [facility] 2022-06-16 00:00 CT abdomen pelvis w [facility] 2022-06-17 00:00 US Abdomen limited [facility] 2022-06-16 00:00 CT chest w [facility] 2022-06-21 00:[address] [facility] Results/Labs test date author facility value [...] nown) date) unknown) (unknown) (no (unknown) (unknown) [id number] (units (unkno wn) date) unknown) (unknown) (no (unknown) (unknown) 06/16/22 (units (unkno wn) date) unknown) (unknown) (no (unknown) (unknown) [address] (units (unkn own) date) Street unknown) (unknown) (no (unknown) (unknown) Accession (units (unkn own) date) Number: unknown) [id number] (unknown) (no (unknown) (unknown) Age/Sex: 86 / M (units (unknown) date) Date of Service: unknown) (unknown) (no (unknown) (unknown) [place], [place] (units ( unknown) date) [address] unknown) (unknown) (no (unknown) (unknown) Approved by: (units (u nknown) date) Brandyn Davis M.D. unknown) on 06/16/2022 at 13:03 (unknown) (no (unknown) (unknown) Bones and chest (units (unknown) date) wall: No unknown) suspicious bony lesions. Overlying soft tissues (unknown) (no (unknown) (unknown) COMPARISON: (units (un known) date) None. unknown) (unknown) (no (unknown) (unknown) : 1935 (units (unknown) date) Acct:[id number] unknown) (unknown) (no (unknown) (unknown) Dictated by: (units (u nknown) date) Brandyn Davis M.D. unknown) on 06/16/2022 at 13:02 (unknown) (no (unknown) (unknown) FINDINGS: (units (unkn own) date) unknown) (unknown) (no (unknown) (unknown) IMPRESSION: (units (un known) date) Possible mild unknown) right and retrocardiac opacities could represent (unknown) (no (unknown) (unknown) INDICATIONS: (units (u nknown) date) suspected sepsis unknown) (unknown) (no (unknown) (unknown) [facility] (units (unknown) date) unknown) (unknown) (no [...] nown) date) unknown) (unknown) (no (unknown) (unknown) [id number] (units (unkno wn) date) unknown) (unknown) (no (unknown) (unknown) 06/16/22 (units (unkno wn) date) unknown) (unknown) (no (unknown) (unknown) [address] [place] [address] (units (unknown) date) unknown) (unknown) (no (unknown) (unknown) Accession Number: (units (unknown) date) [id number] unknown) (unknown) (no (unknown) (unknown) Age/Sex: 86 / M (units (unknown) date) Date of Service: unknown) (unknown) (no (unknown) (unknown) [place] (units ( unknown) date) [address] unknown) (unknown) (no (unknown) (unknown) Approved by: [...] (unknown) (unknown) : 1935 (units (unknown) date) Acct:[id number] unknown) (unknown) (no (unknown) (unknown) Dictated by: [...] date) Good unknown) (unknown) (no (unknown) (unknown) [facility] (units (unknown) date) unknown) (unknown) (no [...] nown) date) unknown) (unknown) (no (unknown) (unknown) [id number] (units (unkno wn) date) unknown) (unknown) (no (unknown) (unknown) 06/16/22 (units (unkno wn) date) unknown) (unknown) (no (unknown) (unknown) [address] [place] [address] (units (unknown) date) unknown) (unknown) (no (unknown) (unknown) Accession (units (unkn own) date) Number: unknown) [id number] (unknown) (no (unknown) (unknown) After the (units (unkn own) date) administration of unknown) intravenous contrast, 5 mm thick sections acquired (unknown) (no (unknown) (unknown) Age/Sex: 86 / M (units (unknown) date) Date of Service: unknown) (unknown) (no (unknown) (unknown) [place], [place] (units ( unknown) date) [address] unknown) (unknown) (no (unknown) (unknown) Approved by: (units (u nknown) date) Brandyn Davis M.D. unknown) on 06/16/2022 at 14:52 (unknown) (no (unknown) (unknown) Bones: No acute (units (unknown) date) or suspicious unknown) osseous abnormality. (unknown) (no (unknown) (unknown) COMPARISON: (units (un known) date) [facility], unknown) CR, XR CHEST 1V, 06/16/2022, 12:43. (unknown) (no (unknown) (unknown) CT Scan Report (units (unknown) date) unknown) (unknown) (no (unknown) (unknown) Chest wall and (units (unknown) date) thyroid: unknown) Unremarkable (unknown) (no (unknown) (unknown) : 1935 (units (unknown) date) Acct:[id number] unknown) (unknown) (no (unknown) (unknown) Dictated by: [...] date) Good unknown) (unknown) (no (unknown) (unknown) [facility] (units (unknown) date) unknown) (unknown) (no (unknown) (unknown) Loc: ED (units (unkno wn) date) unknown) (unknown) (no (unknown) (unknown) Lungs and (units (unkn own) date) pleura: Bilateral unknown) cxnu-go-ygdxaeeu pleural effusions, slightly (unknown) (no (unknown) (unknown) Mediastinum, (units (u nknown) date) heart, and unknown) esophagus: No hiatal hernia. 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 technician as well as ER (unknown) (no (unknown) [...] date) Signs: unknown) (unknown) (no (unknown) (unknown) [facility] (units (unknown) date) [address] unknown) [place] [address] (unknown) (no (unknown) (unknown) Lab Data (units [...] (unknown) Lymph # (Auto) (units (unknown) date) (8360-2222) /uL unknown) (unknown) (no (unknown) (unknown) Lymph # (Auto) (units (unknown) date) 400 L (9187-8496) unknown) /uL (unknown) (no (unknown) (unknown) Lymph [...] date) Wheelchair unknown) (unknown) (no (unknown) (unknown) [place] # (Auto) (units ( unknown) date) (0-900) /uL unknown) (unknown) (no (unknown) (unknown) [place] # (Auto) (units ( unknown) date) 900 (0-900) /uL unknown) (unknown) (no (unknown) (unknown) [place] % (Auto) (units ( unknown) date) (3-14) % unknown) (unknown) (no (unknown) (unknown) [place] % (Auto) (units ( unknown) date) 9.4 [...] Neut # (Auto) (units ( unknown) date) (3531-0582) /uL unknown) (unknown) (no (unknown) (unknown) Neut # (Auto) (units ( unknown) date) 8200 H unknown) (7304-6809) /uL (unknown) (no (unknown) (unknown) Neut % [...] (4.5-11.0) unknown) X103/uL (unknown) (no (unknown) (unknown) [facility] (units (unknown) date) ER for evaluation unknown) [...] (units (unk nown) date) strong equal unknown) senior care specialist 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 (unknown) (no (unknown) (unknown) [...] with (units (unk nown) date) patient's unknown) forensic science technician and he was concern for patient's welfare [...] nown) date) unknown) (unknown) (no (unknown) (unknown) [id number] (units (unkno wn) date) unknown) (unknown) (no [...] (unknown) (unknown) : 1935 (units (unknown) date) Acct:[id number] unknown) (unknown) (no (unknown) (unknown) Data collected (units (unknown) date) from: Patient and unknown) and patient's forensic science technician as well as ER (unknown) (no (unknown) [...] date) Signs: unknown) (unknown) (no (unknown) (unknown) [facility] (units (unknown) date) [address] unknown) [place] [address] (unknown) (no (unknown) (unknown) Lab Data (units [...] (unknown) Lymph # (Auto) (units (unknown) date) (8344-1446) /uL unknown) (unknown) (no (unknown) (unknown) Lymph # (Auto) (units (unknown) date) 400 L (7500-8425) unknown) /uL (unknown) (no (unknown) (unknown) Lymph [...] date) Wheelchair unknown) (unknown) (no (unknown) (unknown) [place] # (Auto) (units ( unknown) date) (0-900) /uL unknown) (unknown) (no (unknown) (unknown) [place] # (Auto) (units ( unknown) date) 900 (0-900) /uL unknown) (unknown) (no (unknown) (unknown) [place] % (Auto) (units ( unknown) date) (3-14) % unknown) (unknown) (no (unknown) (unknown) [place] % (Auto) (units ( unknown) date) 9.4 [...] Neut # (Auto) (units ( unknown) date) (5672-4754) /uL unknown) (unknown) (no (unknown) (unknown) Neut # (Auto) (units ( unknown) date) 8200 H unknown) (8306-2067) /uL (unknown) (no (unknown) (unknown) Neut % [...] (4.5-11.0) unknown) X103/uL (unknown) (no (unknown) (unknown) [facility] (units (unknown) date) ER for evaluation unknown) [...] (units (unk nown) date) strong equal unknown) senior care specialist 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 (unknown) (no (unknown) (unknown) [...] with (units (unk nown) date) patient's unknown) forensic science technician and he was concern for patient's welfare [...] nown) date) unknown) (unknown) (no (unknown) (unknown) [id number] (units (unkno wn) date) unknown) (unknown) (no [...] wn) date) unknown) (unknown) (no (unknown) (unknown) [address] [place] [address] (units (unknown) date) unknown) (unknown) (no (unknown) [...] (unknown) (unknown) Accession Number: (units (unknown) date) [id number] ?? unknown) (unknown) (no (unknown) (unknown) Accession Number: (units (unknown) date) [id number] ?? unknown) (unknown) (no (unknown) (unknown) Accession Number: (units (unknown) date) [id number] ?? unknown) (unknown) (no (unknown) (unknown) Acct:[id number] (units (unknown) date) unknown) (unknown) (no (unknown) [...] (unknown) [place] (units ( unknown) date) [address] unknown) (unknown) (no (unknown) (unknown) Approved by: [...] (unknown) (unknown) COMPARISON:? (units (u nknown) date) [facility], unknown) CR, XR CHEST 1V, 06/16/2022, [...] (unknown) (unknown) : 1935 (units (unknown) date) Acct:[id number] unknown) (unknown) (no (unknown) (unknown) : 1935 (units (unknown) date) unknown) (unknown) (no (unknown) (unknown) Data collected (units (unknown) date) from: Patient and unknown) and patient's forensic science technician as well as ER (unknown) (no (unknown) [...] date) Signs: unknown) (unknown) (no (unknown) (unknown) [facility] (units (unknown) date) [address] unknown) [place] [address] (unknown) (no (unknown) (unknown) [facility] (units (unknown) date) unknown) (unknown) (no [...] (units (unkn own) date) pleura:? Bilateral unknown) hfkz-ga-zmfkzslv pleural effusions, slightly (unknown) (no (unknown) (unknown) Lungs and pleura:? (units (unknown) date) Low lung volumes.? unknown) Possible mild right and retrocardiac basal (unknown) (no (unknown) (unknown) Lymph # (Auto) (units (unknown) date) (6655-1784) /uL unknown) (unknown) (no (unknown) (unknown) Lymph # (Auto) (units (unknown) date) 400 L (8416-3372) unknown) /uL (unknown) (no (unknown) (unknown) Lymph [...] date) unknown) (unknown) (no (unknown) (unknown) MR#: [id number] (units (unknown) date) unknown) (unknown) (no (unknown) [...] unknown) Recorded Confirmed (unknown) (no (unknown) (unknown) Vhrg-yf-slpqdgdp, (units (unknown) date) unknown) (unknown) (no (unknown) (unknown) Mode of arrival: (units (unknown) date) Wheelchair unknown) (unknown) (no (unknown) (unknown) [place] # (Auto) (units ( unknown) date) (0-900) /uL unknown) (unknown) (no (unknown) (unknown) [place] # (Auto) 900 (units (unknown) date) (0-900) /uL unknown) (unknown) (no (unknown) (unknown) [place] % (Auto) (units ( unknown) date) (3-14) % unknown) (unknown) (no (unknown) (unknown) [place] % (Auto) 9.4 (units (unknown) date) (3-14) [...] Neut # (Auto) (units ( unknown) date) (7728-6548) /uL unknown) (unknown) (no (unknown) (unknown) Neut # (Auto) (units ( unknown) date) 8200 H (3659-4413) unknown) /uL (unknown) (no (unknown) (unknown) Neut [...] (4.5-11.0) X103/uL unknown) (unknown) (no (unknown) (unknown) [facility] (units (unknown) date) ER for evaluation unknown) [...] hands with strong (units (unknown) date) equal senior care specialist unknown) 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) forensic science technician and he was concern for patient's welfare [...] nown) date) unknown) (unknown) (no (unknown) (unknown) [id number] (units (unkno wn) date) unknown) (unknown) (no [...] date) unknown) (unknown) (no (unknown) (unknown) [address] [place] [address] (units (unknown) date) unknown) (unknown) (no (unknown) [...] (unknown) (unknown) Accession Number: (units (unknown) date) [id number] ?? unknown) (unknown) (no (unknown) (unknown) Accession Number: (units (unknown) date) [id number] ?? unknown) (unknown) (no (unknown) (unknown) Accession Number: (units (unknown) date) [id number] ?? unknown) (unknown) (no (unknown) (unknown) Acct:[id number] (units (unknown) date) unknown) (unknown) (no (unknown) [...] Date / Time (unknown) (no (unknown) (unknown) [place], [place] (units ( unknown) date) [address] unknown) (unknown) (no (unknown) (unknown) Approved by: [...] (unknown) (unknown) COMPARISON:? (units (u nknown) date) [facility], unknown) CR, XR CHEST 1V, 06/16/2022, [...] (unknown) (unknown) : 1935 (units (unknown) date) Acct:[id number] unknown) (unknown) (no (unknown) (unknown) : 1935 (units (unknown) date) unknown) (unknown) (no (unknown) (unknown) Data collected (units (unknown) date) from: Patient and unknown) and patient's forensic science technician as well as ER (unknown) (no (unknown) [...] date) Signs: unknown) (unknown) (no (unknown) (unknown) [facility] (units (unknown) date) [address] unknown) [place] [address] (unknown) (no (unknown) (unknown) [facility] (units (unknown) date) unknown) (unknown) (no [...] (units (unkn own) date) pleura:? Bilateral unknown) pgdh-ih-ufckispj pleural effusions, slightly (unknown) (no (unknown) (unknown) Lungs and pleura:? (units (unknown) date) Low lung volumes.? unknown) Possible mild right and retrocardiac basal (unknown) (no (unknown) (unknown) Lymph # (Auto) (units (unknown) date) (2662-5879) /uL unknown) (unknown) (no (unknown) (unknown) Lymph # (Auto) (units (unknown) date) 400 L (8286-7738) unknown) /uL (unknown) (no (unknown) (unknown) Lymph [...] date) unknown) (unknown) (no (unknown) (unknown) MR#: [id number] (units (unknown) date) unknown) (unknown) (no (unknown) [...] unknown) Recorded Confirmed (unknown) (no (unknown) (unknown) Tabt-wx-pkwfdhlp, (units (unknown) date) unknown) (unknown) (no (unknown) (unknown) Mode of arrival: (units (unknown) date) Wheelchair unknown) (unknown) (no (unknown) (unknown) [place] # (Auto) (units ( unknown) date) (0-900) /uL unknown) (unknown) (no (unknown) (unknown) [place] # (Auto) 900 (units (unknown) date) (0-900) /uL unknown) (unknown) (no (unknown) (unknown) [place] % (Auto) (units ( unknown) date) (3-14) % unknown) (unknown) (no (unknown) (unknown) [place] % (Auto) 9.4 (units (unknown) date) (3-14) [...] Neut # (Auto) (units ( unknown) date) (4478-3472) /uL unknown) (unknown) (no (unknown) (unknown) Neut # (Auto) (units ( unknown) date) 8200 H (4088-9419) unknown) /uL (unknown) (no (unknown) (unknown) Neut [...] (4.5-11.0) X103/uL unknown) (unknown) (no (unknown) (unknown) [facility] (units (unknown) date) ER for evaluation unknown) [...] hands with strong (units (unknown) date) equal senior care specialist unknown) 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) forensic science technician and he was concern for patient's welfare [...] (unknown) date) unknown) (unknown) (no (unknown) (unknown) [id number] (units (unkno wn) date) unknown) (unknown) (no [...] (unknown) (unknown) : 1935 (units (unknown) date) Acct:[id number] unknown) (unknown) (no (unknown) (unknown) Date Patient [...] date) (RT-PCR) unknown) (unknown) (no (unknown) (unknown) [facility] (units (unknown) date) [address] unknown) [place] [address] (unknown) (no (unknown) (unknown) Laboratory (units (unk [...] wn) date) unknown) (unknown) (no (unknown) (unknown) [place] # (Auto) (units ( unknown) date) 900 unknown) (unknown) (no (unknown) (unknown) [place] # (Auto) (units ( unknown) date) unknown) (unknown) (no (unknown) (unknown) [place] % (Auto) (units ( unknown) date) 9.4 unknown) (unknown) (no (unknown) (unknown) [place] % (Auto) (units ( unknown) date) unknown) [...] (units (unkn own) date) Hawa Michael unknown) PRODUCTION WORKER-BC (unknown) (no (unknown) (unknown) Pulse Oximetry (units [...] (unknown) Ur Specific (units (un known) date) [place] 1.020 unknown) (unknown) (no (unknown) (unknown) Ur Specific (units (un known) date) [place] unknown) (unknown) (no (unknown) (unknown) Ur Squamous [...] nown) date) unknown) (unknown) (no (unknown) (unknown) [id number] (units (unkno wn) date) unknown) (unknown) (no (unknown) (unknown) 06/16/22 (units (unkno wn) date) unknown) (unknown) (no (unknown) (unknown) 1. Multiple (units (un known) date) ill-defined unknown) hypoattenuating mass lesions throughout the liver. The (unknown) (no (unknown) (unknown) [address] [facility] [facility] [address] (units (unknown) date) unknown) (unknown) (no (unknown) (unknown) 2. Numerous small (units (unknown) date) hypoattenuating unknown) lesions throughout the spleen are also (unknown) (no (unknown) (unknown) ABDOMEN: (units (unkno wn) date) unknown) (unknown) (no (unknown) (unknown) Abdominal Nodes: (units (unknown) date) No retroperitoneal unknown) or mesenteric adenopathy by size criteria. (unknown) (no (unknown) (unknown) Accession Number: (units (unknown) date) [id number] unknown) (unknown) (no (unknown) (unknown) Adrenal Glands: (units (unknown) date) No adrenal unknown) nodules. (unknown) (no (unknown) (unknown) After the (units (unkn own) date) administration of unknown) IV contrast, axial sections were acquired from the (unknown) (no (unknown) (unknown) Age/Sex: 86 / M (units (unknown) date) Date of Service: unknown) (unknown) (no (unknown) (unknown) [place], [place] (units ( unknown) date) [address] unknown) (unknown) (no (unknown) (unknown) Approved by: [...] (unknown) (unknown) : 1935 (units (unknown) date) Acct:[id number] unknown) (unknown) (no (unknown) (unknown) Dictated by: [...] date) Excellent. unknown) (unknown) (no (unknown) (unknown) [facility] (units (unknown) date) unknown) (unknown) (no [...] (unknown) date) unknown) (unknown) (no (unknown) (unknown) [id number] (units (unkno wn) date) unknown) (unknown) (no [...] (unknown) (unknown) : 1935 (units (unknown) date) Acct:[id number] unknown) (unknown) (no (unknown) (unknown) Date Patient [...] date) (RT-PCR) unknown) (unknown) (no (unknown) (unknown) [facility] (units (unknown) date) [address] [place] [address] unknown) [place] [address] (unknown) (no (unknown) (unknown) Laboratory (units (unk [...] wn) date) unknown) (unknown) (no (unknown) (unknown) [place] # (Auto) (units ( unknown) date) 900 unknown) (unknown) (no (unknown) (unknown) [place] # (Auto) (units ( unknown) date) unknown) (unknown) (no (unknown) (unknown) [place] % (Auto) (units ( unknown) date) 9.4 unknown) (unknown) (no (unknown) (unknown) [place] % (Auto) (units ( unknown) date) unknown) [...] (units (unkn own) date) Hawa Michael unknown) PRODUCTION WORKER-BC (unknown) (no (unknown) (unknown) Pulse Oximetry (units [...] (unknown) Ur Specific (units (un known) date) [place] 1.020 unknown) (unknown) (no (unknown) (unknown) Ur Specific (units (un known) date) [place] unknown) (unknown) (no (unknown) (unknown) Ur Squamous [...] (unknown) date) unknown) (unknown) (no (unknown) (unknown) [id number] (units (unkno wn) date) unknown) (unknown) (no [...] (unknown) (unknown) : 1935 (units (unknown) date) Acct:[id number] unknown) (unknown) (no (unknown) (unknown) Date Patient [...] date) (RT-PCR) unknown) (unknown) (no (unknown) (unknown) [facility] (units (unknown) date) [address] unknown) [place] [address] (unknown) (no (unknown) (unknown) Laboratory (units (unk [...] 06/16/22 unknown) @ 21:27 by Hawa Michael [facility]) (unknown) (no (unknown) (unknown) Medication (units (unk nown) date) Instructions unknown) Recorded Confirmed Type (unknown) (no (unknown) (unknown) Meds (units (unkno wn) date) unknown) (unknown) (no (unknown) (unknown) [place] # (Auto) (units ( unknown) date) 900 unknown) (unknown) (no (unknown) (unknown) [place] # (Auto) (units ( unknown) date) unknown) (unknown) (no (unknown) (unknown) [place] % (Auto) (units ( unknown) date) 9.4 unknown) (unknown) (no (unknown) (unknown) [place] % (Auto) (units ( unknown) date) unknown) [...] (units (unkn own) date) Hawa Michael unknown) PRODUCTION WORKER-BC (unknown) (no (unknown) (unknown) Psych: Patient (units [...] 06/16/22 unknown) @ 21:27 by Hawa Michael [facility]) (unknown) (no (unknown) (unknown) Temperature 98.1 (units [...] (unknown) Ur Specific (units (un known) date) [place] 1.020 unknown) (unknown) (no (unknown) (unknown) Ur Specific (units (un known) date) [place] unknown) (unknown) (no (unknown) (unknown) Ur Squamous [...] (unknown) (no date) (unknown) (unknown) 1.8 ng/ml 84424 -7 (unknown) (no date) (unknown) (unknown) 1.8 ng/ml (unkn own) (unknown) (no date) (unknown) (unknown) Negative (units (unkn own) unknown) (unknown) (no date) (unknown) (unknown) Negative (units 65949 -1 unknown) (unknown) (no date) (unknown) (unknown) Negative (units 68150 -3 unknown) (unknown) (no date) (unknown) (unknown) [...] (unknown) date) unknown) (unknown) (no (unknown) (unknown) [id number] (units (unkno wn) date) unknown) (unknown) (no [...] (unknown) (unknown) : 1935 (units (unknown) date) Acct:[id number] unknown) (unknown) (no (unknown) (unknown) Date Patient [...] date) (RT-PCR) unknown) (unknown) (no (unknown) (unknown) [facility] (units (unknown) date) [address] unknown) [place] [address] (unknown) (no (unknown) (unknown) Laboratory (units (unk [...] wn) date) unknown) (unknown) (no (unknown) (unknown) [place] # (Auto) (units ( unknown) date) 900 unknown) (unknown) (no (unknown) (unknown) [place] # (Auto) (units ( unknown) date) unknown) (unknown) (no (unknown) (unknown) [place] % (Auto) (units ( unknown) date) 9.4 unknown) (unknown) (no (unknown) (unknown) [place] % (Auto) (units ( unknown) date) unknown) [...] (units (unkn own) date) Hawa Michael unknown) PRODUCTION WORKER-BC (unknown) (no (unknown) (unknown) Psych: Patient (units [...] (unknown) Ur Specific (units (un known) date) [place] 1.020 unknown) (unknown) (no (unknown) (unknown) Ur Specific (units (un known) date) [place] unknown) (unknown) (no (unknown) (unknown) Ur Squamous [...] nown) date) unknown) (unknown) (no (unknown) (unknown) [id number] (units (unkno wn) date) unknown) (unknown) (no (unknown) (unknown) 06/17/22 (units (unkno wn) date) unknown) (unknown) (no (unknown) (unknown) [address] [place] [address] (units (unknown) date) unknown) (unknown) (no (unknown) (unknown) Accession Number: (units (unknown) date) [id number] unknown) (unknown) (no (unknown) (unknown) Age/Sex: 86 / M (units (unknown) date) Date of Service: unknown) (unknown) (no (unknown) (unknown) [place], [place] (units ( unknown) date) [address] unknown) (unknown) (no (unknown) (unknown) Approved by: Feliberto (units (unknown) date) Azar Mendoza on unknown) 06/17/2022 at 10:08 (unknown) (no (unknown) (unknown) Biliary ducts: (units (unknown) date) Intrahepatic bile unknown) ducts are non-dilated. Extrahepatic bile (unknown) (no (unknown) (unknown) COMPARISON: (units (un known) date) [facility], unknown) CT, CT ABDOMEN PELVIS W CON, 06/16/2022, 21:22. (unknown) (no (unknown) (unknown) CT 06/16/2019 (units ( unknown) date) unknown) (unknown) (no (unknown) (unknown) : 1935 (units (unknown) date) Acct:[id number] unknown) (unknown) (no (unknown) (unknown) Diffusely (units [...] LIVER unknown) METS (unknown) (no (unknown) (unknown) [facility] (units (unknown) date) unknown) (unknown) (no [...] (unknown) date) unknown) (unknown) (no (unknown) (unknown) [id number] (units (unkno wn) date) unknown) (unknown) (no [...] (unknown) (unknown) : 1935 (units (unknown) date) Acct:[id number] unknown) (unknown) (no (unknown) (unknown) Date Patient [...] date) (RT-PCR) unknown) (unknown) (no (unknown) (unknown) [facility] (units (unknown) date) [address] unknown) [place] [address] (unknown) (no (unknown) (unknown) Laboratory (units (unk [...] wn) date) unknown) (unknown) (no (unknown) (unknown) [place] # (Auto) (units ( unknown) date) 900 unknown) (unknown) (no (unknown) (unknown) [place] # (Auto) (units ( unknown) date) unknown) (unknown) (no (unknown) (unknown) [place] % (Auto) (units ( unknown) date) 9.4 unknown) (unknown) (no (unknown) (unknown) [place] % (Auto) (units ( unknown) date) unknown) [...] (units (unkn own) date) Hawa Michael unknown) PRODUCTION WORKER-BC (unknown) (no (unknown) (unknown) Psych: Patient (units [...] (unknown) Ur Specific (units (un known) date) [place] 1.020 unknown) (unknown) (no (unknown) (unknown) Ur Specific (units (un known) date) [place] unknown) (unknown) (no (unknown) (unknown) Ur Squamous [...] (unknown) date) unknown) (unknown) (no (unknown) (unknown) [id number] (units (unkno wn) date) unknown) (unknown) (no [...] (unknown) (unknown) : 1935 (units (unknown) date) Acct:[id number] unknown) (unknown) (no (unknown) (unknown) Date Patient [...] 06/17/22 unknown) @ 00:47 by Hawa Michael [facility]) (unknown) (no (unknown) (unknown) Father [...] date) (RT-PCR) unknown) (unknown) (no (unknown) (unknown) [facility] (units (unknown) date) [address] unknown) [place] [address] (unknown) (no (unknown) (unknown) Laboratory (units (unk [...] 06/17/22 unknown) @ 00:55 by Hawa Michael [facility]) (unknown) (no (unknown) (unknown) Medication (units (unk nown) date) Instructions unknown) Recorded Confirmed Type (unknown) (no (unknown) (unknown) Meds (units (unkno wn) date) unknown) (unknown) (no (unknown) (unknown) [place] # (Auto) 900 (units (unknown) date) unknown) (unknown) (no (unknown) (unknown) [place] # (Auto) (units ( unknown) date) unknown) (unknown) (no (unknown) (unknown) [place] % (Auto) 9.4 (units (unknown) date) unknown) (unknown) (no (unknown) (unknown) [place] % (Auto) (units ( unknown) date) unknown) [...] (units (unkn own) date) Hawa Michael unknown) PRODUCTION WORKER-BC (unknown) (no (unknown) (unknown) Psych: Patient (units [...] 06/16/22 unknown) @ 21:[address] [facility]-) (unknown) (no (unknown) (unknown) Temperature 98.1 [...] (unknown) Ur Specific (units (un known) date) [place] 1.020 unknown) (unknown) (no (unknown) (unknown) Ur Specific (units (un known) date) [place] unknown) (unknown) (no (unknown) (unknown) Ur Squamous [...] unknown) pending, transaminitis (unknown) (no (unknown) (unknown) [id number] (units (unkno wn) date) unknown) (unknown) (no [...] (unknown) (unknown) : 1935 (units (unknown) date) Acct:[id number] unknown) (unknown) (no (unknown) (unknown) Date Patient [...] 06/17/22 unknown) @ 00:47 by Hawa Michael [facility]) (unknown) (no (unknown) (unknown) Father [...] date) (RT-PCR) unknown) (unknown) (no (unknown) (unknown) [facility] (units (unknown) date) [address] unknown) [place] [address] (unknown) (no (unknown) (unknown) Laboratory (units (unk [...] wn) date) unknown) (unknown) (no (unknown) (unknown) [place] # (Auto) 900 (units (unknown) date) unknown) (unknown) (no (unknown) (unknown) [place] # (Auto) (units ( unknown) date) unknown) (unknown) (no (unknown) (unknown) [place] % (Auto) 9.4 (units (unknown) date) unknown) (unknown) (no (unknown) (unknown) [place] % (Auto) (units ( unknown) date) unknown) [...] (units (unkn own) date) Hawa Michael unknown) PRODUCTION WORKER-BC (unknown) (no (unknown) (unknown) Psych: Patient (units [...] 06/16/22 unknown) @ 21:27 by Hawa Michael [facility]) (unknown) (no (unknown) (unknown) Temperature 98.1 (units [...] (unknown) Ur Specific (units (un known) date) [place] 1.020 unknown) (unknown) (no (unknown) (unknown) Ur Specific (units (un known) date) [place] unknown) (unknown) (no (unknown) (unknown) Ur Squamous [...] unknown) pending, transaminitis (unknown) (no (unknown) (unknown) [id number] (units (unkno wn) date) unknown) (unknown) (no [...] (unknown) (unknown) : 1935 (units (unknown) date) Acct:[id number] unknown) (unknown) (no (unknown) (unknown) Date Patient [...] 06/17/22 unknown) @ 00:47 by Hawa Michael PRODUCTION WORKERJames) (unknown) (no (unknown) (unknown) Father (units (unknown) [...] date) (RT-PCR) unknown) (unknown) (no (unknown) (unknown) [facility] (units (unknown) date) [address] unknown) [place] [address] (unknown) (no (unknown) (unknown) Laboratory (units (unk [...] 06/17/22 unknown) @ 00:55 by Hawa Michael [facility]) (unknown) (no (unknown) (unknown) Medication (units (unk nown) date) Instructions unknown) Recorded Confirmed Type (unknown) (no (unknown) (unknown) Meds (units (unkno wn) date) unknown) (unknown) (no (unknown) (unknown) [place] # (Auto) 900 (units (unknown) date) unknown) (unknown) (no (unknown) (unknown) [place] # (Auto) (units ( unknown) date) unknown) (unknown) (no (unknown) (unknown) [place] % (Auto) 9.4 (units (unknown) date) unknown) (unknown) (no (unknown) (unknown) [place] % (Auto) (units ( unknown) date) unknown) [...] (units (unkn own) date) Hawa Michael unknown) PRODUCTION WORKER-BC (unknown) (no (unknown) (unknown) Psych: Patient (units [...] (unknown) Ur Specific (units (un known) date) [place] 1.020 unknown) (unknown) (no (unknown) (unknown) Ur Specific (units (un known) date) [place] unknown) (unknown) (no (unknown) (unknown) Ur Squamous [...] unknown) pending, transaminitis (unknown) (no (unknown) (unknown) [id number] (units (unkno wn) date) unknown) (unknown) (no [...] (unknown) (unknown) : 1935 (units (unknown) date) Acct:[id number] unknown) (unknown) (no (unknown) (unknown) Date Patient [...] date) (RT-PCR) unknown) (unknown) (no (unknown) (unknown) [facility] (units (unknown) date) [address] [place] [address] unknown) [place] [address] (unknown) (no (unknown) (unknown) Laboratory (units (unk [...] (Updated 06/17/22 unknown) @ 00:55 by [facility] (unknown) (no (unknown) (unknown) Medication (units (unk nown) date) Instructions unknown) Recorded Confirmed Type (unknown) (no (unknown) (unknown) Meds (units (unkno wn) date) unknown) (unknown) (no (unknown) (unknown) [place] # (Auto) 900 (units (unknown) date) unknown) (unknown) (no (unknown) (unknown) [place] # (Auto) (units ( unknown) date) unknown) (unknown) (no (unknown) (unknown) [place] % (Auto) 9.4 (units (unknown) date) unknown) (unknown) (no (unknown) (unknown) [place] % (Auto) (units ( unknown) date) unknown) [...] (units (unkn own) date) Hawa Michael unknown) PRODUCTION WORKER-BC (unknown) (no (unknown) (unknown) Psych: Patient (units [...] (Updated 06/16/22 unknown) @ 21:27 by KASSI [facility]-) (unknown) (no (unknown) (unknown) Temperature 98.1 (units [...] (unknown) Ur Specific (units (un known) date) [place] 1.020 unknown) (unknown) (no (unknown) (unknown) Ur Specific (units (un known) date) [place] unknown) (unknown) (no (unknown) (unknown) Ur Squamous [...] unknown) pending, transaminitis (unknown) (no (unknown) (unknown) [id number] (units (unkno wn) date) unknown) (unknown) (no [...] (unknown) (unknown) : 1935 (units (unknown) date) Acct:[id number] unknown) (unknown) (no (unknown) (unknown) Date Patient [...] 06/17/22 unknown) @ 00:47 by Hawa Michael [facility]) (unknown) (no (unknown) (unknown) Father [...] date) (RT-PCR) unknown) (unknown) (no (unknown) (unknown) [facility] (units (unknown) date) [address] unknown) [place] [address] (unknown) (no (unknown) (unknown) Laboratory (units (unk [...] wn) date) unknown) (unknown) (no (unknown) (unknown) [place] # (Auto) 900 (units (unknown) date) unknown) (unknown) (no (unknown) (unknown) [place] # (Auto) (units ( unknown) date) unknown) (unknown) (no (unknown) (unknown) [place] % (Auto) 9.4 (units (unknown) date) unknown) (unknown) (no (unknown) (unknown) [place] % (Auto) (units ( unknown) date) unknown) [...] (units (unkn own) date) Hawa Michael unknown) PRODUCTION WORKER-BC (unknown) (no (unknown) (unknown) Psych: Patient (units [...] 06/16/22 unknown) @ 21:27 by Hawa Michael [facility]) (unknown) (no (unknown) (unknown) Temperature 98.1 (units [...] (unknown) Ur Specific (units (un known) date) [place] 1.020 unknown) (unknown) (no (unknown) (unknown) Ur Specific (units (un known) date) [place] unknown) (unknown) (no (unknown) (unknown) Ur Squamous [...] 3+, leuks, RBC (unknown) (no (unknown) (unknown) [id number] (units (unkno wn) date) unknown) (unknown) (no [...] (unknown) (unknown) : 1935 (units (unknown) date) Acct:[id number] unknown) (unknown) (no (unknown) (unknown) Date Patient [...] 06/17/22 unknown) @ 00:47 by Hawa Michael [facility]) (unknown) (no (unknown) (unknown) Father [...] date) (RT-PCR) unknown) (unknown) (no (unknown) (unknown) [facility] (units (unknown) date) [address] unknown) [place] [address] (unknown) (no (unknown) (unknown) Laboratory (units (unk [...] wn) date) unknown) (unknown) (no (unknown) (unknown) [place] # (Auto) 900 (units (unknown) date) unknown) (unknown) (no (unknown) (unknown) [place] # (Auto) (units ( unknown) date) unknown) (unknown) (no (unknown) (unknown) [place] % (Auto) 9.4 (units (unknown) date) unknown) (unknown) (no (unknown) (unknown) [place] % (Auto) (units ( unknown) date) unknown) [...] (unknown) Provider: (units (unkn own) date) Hawa Mcihael unknown) PRODUCTION WORKER-BC (unknown) (no (unknown) (unknown) Psych: Patient (units [...] 06/16/22 unknown) @ 21:27 by Hawa Michael [facility]) (unknown) (no (unknown) (unknown) Temperature 98.1 (units [...] (unknown) Ur Specific (units (un known) date) [place] 1.020 unknown) (unknown) (no (unknown) (unknown) Ur Specific (units (un known) date) [place] unknown) (unknown) (no (unknown) (unknown) Ur Squamous [...] 3+, leuks, RBC (unknown) (no (unknown) (unknown) [id number] (units (unkno wn) date) unknown) (unknown) (no [...] (unknown) (unknown) : 1935 (units (unknown) date) Acct:[id number] unknown) (unknown) (no (unknown) (unknown) Date Patient [...] date) (RT-PCR) unknown) (unknown) (no (unknown) (unknown) [facility] (units (unknown) date) [address] unknown) [place] [address] (unknown) (no (unknown) (unknown) Laboratory (units (unk [...] wn) date) unknown) (unknown) (no (unknown) (unknown) [place] # (Auto) 900 (units (unknown) date) unknown) (unknown) (no (unknown) (unknown) [place] # (Auto) (units ( unknown) date) unknown) (unknown) (no (unknown) (unknown) [place] % (Auto) 9.4 (units (unknown) date) unknown) (unknown) (no (unknown) (unknown) [place] % (Auto) (units ( unknown) date) unknown) [...] (units (unkn own) date) Hawa Michael unknown) PRODUCTION WORKER-BC (unknown) (no (unknown) (unknown) Psych: Patient (units [...] 06/16/22 unknown) @ 21:27 by Hawa Michael [facility]) (unknown) (no (unknown) (unknown) Temperature 98.1 (units [...] (unknown) Ur Specific (units (un known) date) [place] 1.020 unknown) (unknown) (no (unknown) (unknown) Ur Specific (units (un known) date) [place] unknown) (unknown) (no (unknown) (unknown) Ur Squamous [...] 3+, leuks, RBC (unknown) (no (unknown) (unknown) [id number] (units (unkno wn) date) unknown) (unknown) (no [...] (unknown) (unknown) : 1935 (units (unknown) date) Acct:[id number] unknown) (unknown) (no (unknown) (unknown) DVT/VTE (units [...] 06/17/22 unknown) @ 00:47 by Hawa Michael [facility]) (unknown) (no (unknown) (unknown) Father [...] date) (RT-PCR) unknown) (unknown) (no (unknown) (unknown) [facility] (units (unknown) date) [address] unknown) [place] [address] (unknown) (no (unknown) (unknown) Laboratory (units (unk [...] 06/17/22 unknown) @ 00:55 by Hawa Michael [facility]) (unknown) (no (unknown) (unknown) Medication (units (unk nown) date) Instructions unknown) Recorded Confirmed Type (unknown) (no (unknown) (unknown) Meds (units (unkno wn) date) unknown) (unknown) (no (unknown) (unknown) [place] # (Auto) 900 (units (unknown) date) unknown) (unknown) (no (unknown) (unknown) [place] # (Auto) (units ( unknown) date) unknown) (unknown) (no (unknown) (unknown) [place] % (Auto) 9.4 (units (unknown) date) unknown) (unknown) (no (unknown) (unknown) [place] % (Auto) (units ( unknown) date) unknown) [...] (unknown) (unknown) Patient: (units (unkno wn) date) Ysoeph Cardoso unknown) MR#: [id number] (unknown) (no (unknown) [...] (units (unkn own) date) Hawa Michael unknown) PRODUCTION WORKER-BC (unknown) (no (unknown) (unknown) Psych: Patient (units [...] (unknown) Ur Specific (units (un known) date) [place] 1.020 unknown) (unknown) (no (unknown) (unknown) Ur Specific (units (un known) date) [place] unknown) (unknown) (no (unknown) (unknown) Ur Squamous [...] (unknown) -consult for (units (u nknown) date) PT/OT/BORDER INSPECTOR-social unknown) work: Concerned patient is not safe [...] 3+, leuks, RBC (unknown) (no (unknown) (unknown) [id number] (units (unkno wn) date) unknown) (unknown) (no [...] (unknown) (unknown) : 1935 (units (unknown) date) Acct:[id number] unknown) (unknown) (no (unknown) (unknown) DVT/VTE (units [...] 06/17/22 unknown) @ 00:47 by Hawa Michael [facility]) (unknown) (no (unknown) (unknown) Father [...] date) (RT-PCR) unknown) (unknown) (no (unknown) (unknown) [facility] (units (unknown) date) [address] unknown) [place] [address] (unknown) (no (unknown) (unknown) Laboratory (units (unk [...] (Updated 06/17/22 unknown) @ 00:55 by K[facility]) (unknown) (no (unknown) (unknown) Medication (units (unk nown) date) Instructions unknown) Recorded Confirmed Type (unknown) (no (unknown) (unknown) Meds (units (unkno wn) date) unknown) (unknown) (no (unknown) (unknown) [place] # (Auto) 900 (units (unknown) date) unknown) (unknown) (no (unknown) (unknown) [place] # (Auto) (units ( unknown) date) unknown) (unknown) (no (unknown) (unknown) [place] % (Auto) 9.4 (units (unknown) date) unknown) (unknown) (no (unknown) (unknown) [place] % (Auto) (units ( unknown) date) unknown) [...] (units (unkn own) date) Hawa Michael unknown) PRODUCTION WORKER-BC (unknown) (no (unknown) (unknown) Psych: Patient (units [...] wn) date) By:<Electronically unknown) signed by Hawa [facility] Alec> (unknown) (no (unknown) (unknown) Skin: Warm [...] 06/16/22 unknown) @ 21:27 by Hawa Michael [facility]) (unknown) (no (unknown) (unknown) Surrogate (units (unkn [...] (unknown) Ur Specific (units (un known) date) [place] 1.020 unknown) (unknown) (no (unknown) (unknown) Ur Specific (units (un known) date) [place] unknown) (unknown) (no (unknown) (unknown) Ur Squamous [...] consult (units (unknown) date) evaluations by unknown) PT/OT/BORDER INSPECTOR. (unknown) (no (unknown) (unknown) wheezes, rhonchi, (units [...] (unknown) -consult for (units (u nknown) date) PT/OT/BORDER INSPECTOR-social unknown) work: Concerned patient is not safe [...] 3+, leuks, RBC (unknown) (no (unknown) (unknown) [id number] (units (unkno wn) date) unknown) (unknown) (no [...] (unknown) (unknown) : 1935 (units (unknown) date) Acct:[id number] unknown) (unknown) (no (unknown) (unknown) DVT/VTE (units [...] 06/17/22 unknown) @ 00:47 by Hawa Michael [facility]) (unknown) (no (unknown) (unknown) Father [...] date) (RT-PCR) unknown) (unknown) (no (unknown) (unknown) [facility] (units (unknown) date) [address] unknown) [place] [address] (unknown) (no (unknown) (unknown) Laboratory (units (unk [...] 06/17/22 unknown) @ 00:55 by Hawa Michael [facility]) (unknown) (no (unknown) (unknown) Medication (units (unk nown) date) Instructions unknown) Recorded Confirmed Type (unknown) (no (unknown) (unknown) Meds (units (unkno wn) date) unknown) (unknown) (no (unknown) (unknown) [place] # (Auto) 900 (units (unknown) date) unknown) (unknown) (no (unknown) (unknown) [place] # (Auto) (units ( unknown) date) unknown) (unknown) (no (unknown) (unknown) [place] % (Auto) 9.4 (units (unknown) date) unknown) (unknown) (no (unknown) (unknown) [place] % (Auto) (units ( unknown) date) unknown) [...] (units (unkn own) date) Hawa Michael unknown) PRODUCTION WORKER-BC (unknown) (no (unknown) (unknown) Psych: Patient (units [...] wn) date) By:<Electronically unknown) signed by [facility]> (unknown) (no (unknown) (unknown) Skin: [...] (unknown) Ur Specific (units (un known) date) [place] 1.020 unknown) (unknown) (no (unknown) (unknown) Ur Specific (units (un known) date) [place] unknown) (unknown) (no (unknown) (unknown) Ur Squamous [...] consult (units (unknown) date) evaluations by unknown) PT/OT/BORDER INSPECTOR. (unknown) (no (unknown) (unknown) wheezes, rhonchi, (units [...] (unknown) date) unknown) (unknown) (no (unknown) (unknown) [id number] (units (unkno wn) date) unknown) (unknown) (no [...] (unknown) (unknown) : 1935 (units (unknown) date) Acct:[id number] unknown) (unknown) (no (unknown) (unknown) Date of Service: (units (unknown) date) 06/16/22 unknown) (unknown) (no (unknown) (unknown) Deep Vein (units (unkn own) date) Thrombosis/Pulmona unknown) ry Embolism Present on Admission: No (unknown) (no (unknown) (unknown) Diagnosed at (units (u nknown) date) [facility] unknown) [facility] Emergency Department. Urine culture (unknown) (no (unknown) [...] 06/17/22 unknown) @ 00:47 by Hawa Michael [facility]) (unknown) (no (unknown) (unknown) Father [...] (unknown) date) Dr. Weathers at the unknown) [facility]. He did not (unknown) (no [...] (unknown) date) unknown) (unknown) (no (unknown) (unknown) [facility] (units (unknown) date) [address] unknown) [place] [address] (unknown) (no (unknown) (unknown) Laboratory (units (unk [...] by CASEY Crystal) (unknown) (no (unknown) (unknown) [place] # (Auto) (units ( unknown) date) [address] unknown) (unknown) (no (unknown) (unknown) [place] # (Auto) (units ( unknown) date) unknown) (unknown) (no (unknown) (unknown) [place] % (Auto) (units ( unknown) date) 13.3 unknown) (unknown) (no (unknown) (unknown) [place] % (Auto) (units ( unknown) date) unknown) [...] 06/16/22 unknown) @ 21:27 by Hawa Michael [facility]) (unknown) (no (unknown) (unknown) Suspect this (units (u nknown) date) reflected SIRS unknown) rather than sepsis. However, he does have evidence (unknown) (no (unknown) (unknown) Temperature 96.3 (units (unknown) date) F L unknown) (unknown) (no (unknown) (unknown) They did they (units ( unknown) date) might prefer to unknown) proceed with care at the [facility] (unknown) (no (unknown) (unknown) Time Spent [...] (unknown) Ur Specific (units (un known) date) [place] 1.020 unknown) (unknown) (no (unknown) (unknown) Ur Specific (units (un known) date) [place] unknown) (unknown) (no (unknown) (unknown) Ur Squamous [...] ( unknown) date) inflammatory unknown) pulmonary opacities. Uqof-jl-mylzmlic (unknown) (no (unknown) (unknown) is status post [...] and follows with (unknown) (no (unknown) (unknown) wjfxj-egozuyw-vgn (units (unknown) date) n-left pleural unknown) effusions. 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 unknown) (unknown) (no [...] (unknown) date) unknown) (unknown) (no (unknown) (unknown) [id number] (units (unkno wn) date) unknown) (unknown) (no [...] (unknown) (unknown) : 1935 (units (unknown) date) Acct:[id number] unknown) (unknown) (no (unknown) (unknown) Date of [...] 06/17/22 unknown) @ 00:47 by Hawa Michael [facility]) (unknown) (no (unknown) (unknown) Father [...] (unknown) date) Dr. Weathers at the unknown) [facility] He did not [...] (unknown) date) unknown) (unknown) (no (unknown) (unknown) [facility] (units (unknown) date) [address] [place] [address] unknown) [place] [address] (unknown) (no (unknown) (unknown) Laboratory (units (unk [...] 06/17/22 unknown) @ 00:55 by Hawa Michael [facility]) (unknown) (no (unknown) (unknown) [place] # (Auto) (units ( unknown) date) [address] unknown) (unknown) (no (unknown) (unknown) [place] # (Auto) (units ( unknown) date) unknown) (unknown) (no (unknown) (unknown) [place] % (Auto) (units ( unknown) date) 15.8 H unknown) (unknown) (no (unknown) (unknown) [place] % (Auto) (units ( unknown) date) unknown) [...] 06/16/22 unknown) @ 21:27 by Hawa Michael [facility]) (unknown) (no (unknown) (unknown) Temperature 96.8 (units [...] (unknown) date) serial f/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 Ksbs-wq-bimkbyqh (unknown) (no (unknown) (unknown) liver and spleen [...] and follows with (unknown) (no (unknown) (unknown) hjwsx-lxcfzak-ucj (units (unknown) date) n-left pleural unknown) effusions.? There is additional note of the (unknown) (no (unknown) (unknown) scalp (units (unkno wn) date) approximately 2 unknown) years ago.? He describes having had a 7 an inch incision.? 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 unknown) (unknown) (no [...] (unknown) date) unknown) (unknown) (no (unknown) (unknown) [id number] (units (unkno wn) date) unknown) (unknown) (no [...] excursions symmetric, CTAB (unknown) (no (unknown) (unknown) EDGE DRUMMER disease. (units (u nknown) date) unknown) (unknown) [...] (unknown) (unknown) : 1935 (units (unknown) date) Acct:[id number] unknown) (unknown) (no (unknown) (unknown) Date of Service: (units (unknown) date) 06/16/22 unknown) (unknown) (no (unknown) (unknown) Deep Vein (units (unkn own) date) Thrombosis/Pulmona unknown) ry Embolism Present on Admission: No (unknown) (no (unknown) (unknown) Diagnosed at (units (u nknown) date) [facility] Urine culture (unknown) (no (unknown) [...] (unknown) date) unknown) (unknown) (no (unknown) (unknown) [facility] (units (unknown) date) [address] unknown) [place] [address] (unknown) (no (unknown) (unknown) Laboratory (units (unk [...] 06/17/22 unknown) @ 00:55 by Hawa Michael [facility]) (unknown) (no (unknown) (unknown) [place] # (Auto) (units ( unknown) date) 1100 H unknown) (unknown) (no (unknown) (unknown) [place] # (Auto) (units ( unknown) date) unknown) (unknown) (no (unknown) (unknown) [place] % (Auto) (units ( unknown) date) 15.8 H unknown) (unknown) (no (unknown) (unknown) [place] % (Auto) (units ( unknown) date) unknown) [...] 06/16/22 unknown) @ 21:27 by Hawa Michael [facility]) (unknown) (no (unknown) (unknown) Suspect this (units [...] (unknown) date) serial f/u w/a unknown) 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 He now [...] ( unknown) date) inflammatory unknown) pulmonary opacities.? Wuvz-rb-xjelwjzk (unknown) (no (unknown) (unknown) intervention or (units [...] biopsy and potential (unknown) (no (unknown) (unknown) camsh-xblpepf-wax (units (unknown) date) n-left pleural unknown) effusions.? [...] (unknown) date) unknown) (unknown) (no (unknown) (unknown) [id number] (units (unkno wn) date) unknown) (unknown) (no [...] excursions symmetric, CTAB (unknown) (no (unknown) (unknown) EDGE DRUMMER disease. (units (u nknown) date) unknown) (unknown) [...] (unknown) (unknown) : 1935 (units (unknown) date) Acct:[id number] unknown) (unknown) (no (unknown) (unknown) Date of Service: (units (unknown) date) 06/16/22 unknown) (unknown) (no (unknown) (unknown) Deep Vein (units (unkn own) date) Thrombosis/Pulmona unknown) ry Embolism Present on Admission: No (unknown) (no (unknown) (unknown) Diagnosed at (units (u nknown) date) [facility] Urine culture (unknown) (no (unknown) [...] 06/17/22 unknown) @ 00:47 by Hawa Michael [facility]) (unknown) (no (unknown) (unknown) Father [...] this patient's care (unknown) (no (unknown) (unknown) [facility] (units (unknown) date) [address] unknown) [place] [address] (unknown) (no (unknown) (unknown) Laboratory (units (unk [...] by JOSE Crystal) (unknown) (no (unknown) (unknown) [place] # (Auto) (units ( unknown) date) 1000 H unknown) (unknown) (no (unknown) (unknown) [place] # (Auto) (units ( unknown) date) unknown) (unknown) (no (unknown) (unknown) [place] % (Auto) (units ( unknown) date) 15.4 H unknown) (unknown) (no (unknown) (unknown) [place] % (Auto) (units ( unknown) date) unknown) [...] 06/16/22 unknown) @ 21:[address] [facility]-) (unknown) (no (unknown) (unknown) Suspect this [...] nown) date) unknown) (unknown) (no (unknown) (unknown) [id number] (units (unkno wn) date) unknown) (unknown) (no (unknown) (unknown) 06/21/22 (units (unkno wn) date) unknown) (unknown) (no (unknown) (unknown) [address] [place] [address] (units (unknown) date) unknown) (unknown) (no (unknown) (unknown) Accession (units (unkn own) date) Number: unknown) [id number] (unknown) (no (unknown) (unknown) Age/Sex: 86 / M (units (unknown) date) Date of Service: unknown) (unknown) (no (unknown) (unknown) [place] (units ( unknown) date) [id number] unknown) (unknown) (no (unknown) (unknown) Approved by: (units (u nknown) date) Johnathan Lane unknown) Azar on 06/21/2022 at 15:07 (unknown) (no (unknown) (unknown) Biopsy site: (units (u nknown) date) Posterior right unknown) lobe of the liver (unknown) (no (unknown) (unknown) COMPARISON: (units (un known) date) [facility], unknown) CT, CT ABDOMEN PELVIS W CON, 06/16/2022, 21:22. (unknown) (no (unknown) (unknown) CT Scan Report (units (unknown) date) unknown) (unknown) (no (unknown) (unknown) CT guidance, a (units (unknown) date) core biopsy unknown) trocar and needle set was advanced to the biopsy (unknown) (no (unknown) (unknown) Complications: (units (unknown) date) None. unknown) (unknown) (no (unknown) (unknown) : 1935 (units (unknown) date) Acct:[id number] unknown) (unknown) (no (unknown) (unknown) Dictated by: [...] history of melanoma (unknown) (no (unknown) (unknown) [facility] (units (unknown) date) unknown) (unknown) (no [...] brought to the CT unknown) suite and district scout executive spiral CT imaging was (unknown) (no (unknown) [...] Dr. Arianna Reeder, (unknown) (no (unknown) (unknown) [id number] (units (unkno wn) date) unknown) (unknown) (no [...] (unknown) (unknown) : 1935 (units (unknown) date) Acct:[id number] unknown) (unknown) (no (unknown) (unknown) Date Patient (units (u nknown) date) Seen: 06/19/22 unknown) (unknown) (no (unknown) (unknown) Date of Service: (units (unknown) date) 06/16/22 unknown) (unknown) (no (unknown) (unknown) Deep Vein (units (unkn own) date) Thrombosis/Pulmona unknown) ry Embolism Present on Admission: No (unknown) (no (unknown) (unknown) Diagnosed at (units (u nknown) date) [facility] Urine culture (unknown) (no (unknown) [...] 06/17/22 unknown) @ 00:47 by Hawa Michael [facility]) (unknown) (no (unknown) (unknown) Father [...] (unknown) date) unknown) (unknown) (no (unknown) (unknown) [facility] (units (unknown) date) [address] unknown) [place] [address] (unknown) (no (unknown) (unknown) Laboratory (units (unk [...] 06/17/22 unknown) @ 00:55 by Hawa Michael [facility]) (unknown) (no (unknown) (unknown) [place] # (Auto) (units ( unknown) date) 1000 H unknown) (unknown) (no (unknown) (unknown) [place] # (Auto) (units ( unknown) date) unknown) (unknown) (no (unknown) (unknown) [place] % (Auto) (units ( unknown) date) 15.4 H unknown) (unknown) (no (unknown) (unknown) [place] % (Auto) (units ( unknown) date) unknown) [...] 06/16/22 unknown) @ 21:27 by Hawa Michael [facility]) (unknown) (no (unknown) (unknown) Temperature 97.0 (units [...] unknown) date) unknown) (unknown) (no (unknown) (unknown) [id number] (units (unkno wn) date) unknown) (unknown) (no [...] date) unknown) (unknown) (no (unknown) (unknown) [address] [place] [address] (units (unknown) date) unknown) (unknown) (no (unknown) [...] (unknown) (unknown) Accession Number: (units (unknown) date) [id number] ?? unknown) (unknown) (no (unknown) (unknown) Accession Number: (units (unknown) date) [id number] ?? unknown) (unknown) (no (unknown) (unknown) Accession Number: (units (unknown) date) [id number] ?? unknown) (unknown) (no (unknown) (unknown) Acct:[id number] (units (unknown) date) unknown) (unknown) (no (unknown) [...] (unknown) Admit Provider: (units (unknown) date) Roxana aPrker unknown) (unknown) (no (unknown) (unknown) After history [...] PO DAILY DAVID (unknown) (no (unknown) (unknown) [place], [place] (units ( unknown) date) [address] unknown) (unknown) (no (unknown) (unknown) [place] (units [...] (unknown) (unknown) COMPARISON:? (units (u nknown) date) [facility], unknown) CR, XR CHEST 1V, 06/16/2022, [...] (unknown) (unknown) : 1935 (units (unknown) date) Acct:[id number] unknown) (unknown) (no (unknown) (unknown) : 1935 (units (unknown) date) unknown) (unknown) (no (unknown) (unknown) Data collected (units (unknown) date) from: Patient and unknown) and patient's forensic science technician as well as ER (unknown) (no (unknown) [...] date) Signs: unknown) (unknown) (no (unknown) (unknown) [facility] (units (unknown) date) [address] unknown) [place] [address] (unknown) (no (unknown) (unknown) [facility] (units (unknown) date) unknown) (unknown) (no [...] (units (unkn own) date) pleura:? Bilateral unknown) onjt-ig-nkbebpum pleural effusions, slightly (unknown) (no (unknown) (unknown) Lungs and pleura:? (units (unknown) date) Low lung volumes.? unknown) Possible mild right and retrocardiac basal (unknown) (no (unknown) (unknown) Lymph # (Auto) (units (unknown) date) (0321-3514) /uL unknown) (unknown) (no (unknown) (unknown) Lymph # (Auto) (units (unknown) date) 400 L (8636-8026) unknown) /uL (unknown) (no (unknown) (unknown) Lymph [...] date) unknown) (unknown) (no (unknown) (unknown) MR#: [id number] (units (unknown) date) unknown) (unknown) (no (unknown) [...] 06/17/22 unknown) @ 00:55 by Hawa Michael [facility]) (unknown) (no (unknown) (unknown) Medical decision (units (unknown) date) making narrative: unknown) (unknown) (no (unknown) (unknown) Medical records (units (unknown) date) reviewed: ER unknown) visits from a few days ago (unknown) (no (unknown) (unknown) Medication (units (unk nown) date) Instructions unknown) Recorded Confirmed (unknown) (no (unknown) (unknown) Hitr-wh-fkyqsrlg, (units (unknown) date) unknown) (unknown) (no (unknown) (unknown) Mode of arrival: (units (unknown) date) Wheelchair unknown) (unknown) (no (unknown) (unknown) [place] # (Auto) (units ( unknown) date) (0-900) /uL unknown) (unknown) (no (unknown) (unknown) [place] # (Auto) 900 (units (unknown) date) (0-900) /uL unknown) (unknown) (no (unknown) (unknown) [place] % (Auto) (units ( unknown) date) (3-14) % unknown) (unknown) (no (unknown) (unknown) [place] % (Auto) 9.4 (units (unknown) date) (3-14) [...] Neut # (Auto) (units ( unknown) date) (2602-3130) /uL unknown) (unknown) (no (unknown) (unknown) Neut # (Auto) (units ( unknown) date) 8200 H (3716-3160) unknown) /uL (unknown) (no (unknown) (unknown) Neut [...] (4.5-11.0) X103/uL unknown) (unknown) (no (unknown) (unknown) [facility] (units (unknown) date) ER for evaluation unknown) [...] hands with strong (units (unknown) date) equal senior care specialist unknown) 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) forensic science technician and he was concern for patient's welfare [...] a follow-up ultrasound-guided (unknown) (no (unknown) (unknown) [id number] (units (unkno wn) date) unknown) (unknown) (no (unknown) (unknown) 06/20/22 (units (unkno wn) date) unknown) (unknown) (no (unknown) (unknown) [address] [facility] [address] (units (unknown) date) unknown) (unknown) (no (unknown) (unknown) 1st rib, (units (unkno wn) date) unknown) (unknown) (no (unknown) (unknown) Accession (units (unkn own) date) Number: unknown) [id number] (unknown) (no (unknown) (unknown) Additional (units (unk nown) date) findings: unknown) (unknown) (no (unknown) (unknown) After the (units (unkn own) date) administration of unknown) intravenous contrast, 3.0 mm axial sections (unknown) (no (unknown) (unknown) Age/Sex: 86 / M (units (unknown) date) Date of Service: unknown) (unknown) (no (unknown) (unknown) [place] (units ( unknown) date) [address] unknown) (unknown) (no (unknown) (unknown) Approved by: [...] (unknown) (unknown) COMPARISON: (units (un known) date) [facility], unknown) CT, [facility] CHEST [facility], 06/16/2022, 14:03. [place] (unknown) (no (unknown) (unknown) CT HEAD/BRAIN WO (units (unknown) date) CON, 06/16/2022, unknown) 14:03. (unknown) (no (unknown) (unknown) CT Scan Report (units (unknown) date) unknown) (unknown) (no (unknown) (unknown) : 1935 (units (unknown) date) Acct:[id number] unknown) (unknown) (no (unknown) (unknown) Dictated by: [...] date) Excellent. unknown) (unknown) (no (unknown) (unknown) [facility] (units (unknown) date) unknown) (unknown) (no [...] (unknown) date) unknown) (unknown) (no (unknown) (unknown) [id number] (units (unkno wn) date) unknown) (unknown) (no [...] (unknown) (unknown) : 1935 (units (unknown) date) Acct:[id number] unknown) (unknown) (no (unknown) (unknown) Date Patient [...] (Reviewed 06/17/22 unknown) @ 00:47 [facility] (unknown) (no (unknown) (unknown) Father (units [...] this patient's care (unknown) (no (unknown) (unknown) [facility] (units (unknown) date) [address] unknown) [place] [address] (unknown) (no (unknown) (unknown) Laboratory (units (unk [...] by JOSE Crystal) (unknown) (no (unknown) (unknown) [place] # (Auto) (units ( unknown) date) 1000 H unknown) (unknown) (no (unknown) (unknown) [place] % (Auto) (units ( unknown) date) 14.7 [...] (unknown) Patient: (units (unkno wn) date) Yoseph Carodso unknown) MR#: [id number] (unknown) (no (unknown) (unknown) [...] 06/16/22 unknown) @ 21:27 by Hawa Michael [facility]) (unknown) (no (unknown) (unknown) Temperature 97.1 (units [...] Reeder and updated (unknown) (no (unknown) (unknown) [id number] (units (unkno wn) date) unknown) (unknown) (no [...] (unknown) (unknown) : 1935 (units (unknown) date) Acct:[id number] unknown) (unknown) (no (unknown) (unknown) Date Patient (units (u nknown) date) Seen: 06/20/22 unknown) (unknown) (no (unknown) (unknown) Date of Service: (units (unknown) date) 06/16/22 unknown) (unknown) (no (unknown) (unknown) Deep Vein (units (unkn own) date) Thrombosis/Pulmona unknown) ry Embolism Present on Admission: No (unknown) (no (unknown) (unknown) Diagnosed at (units (u nknown) date) [facility] unknown) [facility] Emergency Department.? Urine culture (unknown) (no (unknown) [...] 06/17/22 unknown) @ 00:47 by Hawa Michael [facility]) (unknown) (no (unknown) (unknown) Father [...] (unknown) date) unknown) (unknown) (no (unknown) (unknown) [facility] (units (unknown) date) [address] unknown) [place] [address] (unknown) (no (unknown) (unknown) Laboratory (units (unk [...] by JOSE Crystal) (unknown) (no (unknown) (unknown) [place] # (Auto) (units ( unknown) date) 1000 H unknown) (unknown) (no (unknown) (unknown) [place] % (Auto) (units ( unknown) date) 14.7 [...] 06/16/22 unknown) @ 21:27 by Hawa Michael [facility]) (unknown) (no (unknown) (unknown) Temperature 97.1 (units [...] over the last few (units (unknown) date) months.?Process Improvement Consultant unknown) consulted. (unknown) (no (unknown) (unknown) [...] (unknown) (no date) (unknown) (unknown) Comment: (units 72334 -1 unknown) (unknown) (no date) (unknown) (unknown) Comment: (units (unkn own) unknown) Result panel 268 (unknown) (no (unknown) (unknown) (no value) (units (unk nown) date) unknown) (unknown) (no (unknown) (unknown) (past 8 hours): (units (unknown) date) unknown) (unknown) (no (unknown) (unknown) [id number] (units (unkno wn) date) unknown) (unknown) (no [...] (unknown) (unknown) : 1935 (units (unknown) date) Acct:[id number] unknown) (unknown) (no (unknown) (unknown) Date Patient [...] (unknown) date) unknown) (unknown) (no (unknown) (unknown) [facility] (units (unknown) date) [address] unknown) [place] [address] (unknown) (no (unknown) (unknown) Labs (units (unkno [...] Reeder and updated (unknown) (no (unknown) (unknown) [id number] (units (unkno wn) date) unknown) (unknown) (no [...] (unknown) (unknown) : 1935 (units (unknown) date) Acct:[id number] unknown) (unknown) (no (unknown) (unknown) Date Patient (units (u nknown) date) Seen: 06/20/22 unknown) (unknown) (no (unknown) (unknown) Date of Service: (units (unknown) date) 06/16/22 unknown) (unknown) (no (unknown) (unknown) Deep Vein (units (unkn own) date) Thrombosis/Pulmona unknown) ry Embolism Present on Admission: No (unknown) (no (unknown) (unknown) Diagnosed at (units (u nknown) date) [facility] Urine culture (unknown) (no (unknown) [...] (unknown) date) unknown) (unknown) (no (unknown) (unknown) [facility] (units (unknown) date) [address] unknown) [place] [address] (unknown) (no (unknown) (unknown) Labs (units (unkno [...] 06/16/22 unknown) @ 21:[address] [facility]-) (unknown) (no (unknown) (unknown) Temperature 97.1 [...] over the last few (units (unknown) date) months.?Process Improvement Consultant unknown) consulted. (unknown) (no (unknown) (unknown) [...] in 1 (unknown) (no (unknown) (unknown) [address] [facility] (units (unknown) date) unknown) (unknown) (no (unknown) (unknown) [address] [place] [address] (units (unknown) date) [address], unknown) [place], [place] [id number] (unknown) (no (unknown) (unknown) [id number] (units (unkno wn) date) unknown) (unknown) (no (unknown) (unknown) [place] (units ( unknown) date) [address] unknown) (unknown) (no (unknown) (unknown) As part [...] description: . unknown) (unknown) (no (unknown) (unknown) [facility] (units (unknown) date) unknown) (unknown) (no (unknown) (unknown) [facility] Accession (units ( unknown) date) Number: unknown) [id number] (unknown) (no (unknown) (unknown) LIVER TISSUE: (units ( unknown) date) unknown) (unknown) (no (unknown) (unknown) [facility] (units (unknown) date) ID Cytology unknown) (unknown) (no (unknown) (unknown) Liver, Needle (units ( unknown) date) Core Biopsies: unknown) (unknown) (no (unknown) (unknown) MD Donovan Mckenzie (units (unknown) date) Phone: unknown) [phone] (unknown) (no (unknown) (unknown) (units (unknown) date) Dictating Dr: unknown) Tommy Molina MD (unknown) (no (unknown) (unknown) MRV 06/23/2022 (units (unknown) date) 1317 Local unknown) (unknown) (no (unknown) (unknown) Material (units (unkno wn) date) submitted: . unknown) (unknown) (no (unknown) (unknown) Tommy Szymanski (units (unkn own) date) MD Jesse, PhD, unknown) Pathologist (unknown) (no (unknown) (unknown) NPI- [id number] (units (unknown) date) unknown) (unknown) (no (unknown) [...] (unknown) date) unknown) (unknown) (no (unknown) (unknown) [id number] (units (unkno wn) date) unknown) (unknown) (no [...] unknown) (unknown) (no (unknown) (unknown) Consult to BORDER INSPECTOR - (units (unknown) date) Child Caregiver unknown) Routine (unknown) (no (unknown) (unknown) Consult [...] (unknown) (unknown) : 1935 (units (unknown) date) Acct:[id number] unknown) (unknown) (no (unknown) (unknown) Date Patient [...] 06/17/22 unknown) @ 00:47 by Hawa Michael [facility]) (unknown) (no (unknown) (unknown) Father [...] twice a day (unknown) (no (unknown) (unknown) [facility] (units (unknown) date) [address] unknown) [place] [address] (unknown) (no (unknown) (unknown) Labs (units (unkno wn) date) unknown) (unknown) (no (unknown) (unknown) Lucien Lan (units (unknown) date) MD Yudi [Primary unknown) Care Provider] (unknown) (no (unknown) (unknown) BORDER INSPECTOR Consult (units (un known) date) needed for:: unknown) [facility] Need (unknown) (no (unknown) (unknown) Medical History (units (unknown) date) (Updated 06/17/22 unknown) @ 00:55 [facility] (unknown) (no (unknown) (unknown) Mother (units [...] (units (unknown) date) Set up HH unknown) RN/PT/OT/CREAM BEATER for discharge home (unknown) (no (unknown) (unknown) [...] 06/16/22 unknown) @ 21:27 by Hawa Michael [facility]) (unknown) (no (unknown) (unknown) Upon admit BP [...] Reeder and updated (unknown) (no (unknown) (unknown) [id number] (units (unkno wn) date) unknown) (unknown) (no [...] unknown) (unknown) (no (unknown) (unknown) Consult to BORDER INSPECTOR - (units (unknown) date) Child Caregiver unknown) Routine (unknown) (no (unknown) (unknown) Consult [...] (unknown) (unknown) : 1935 (units (unknown) date) Acct:[id number] unknown) (unknown) (no (unknown) (unknown) Date Patient [...] Diagnosed at (units (u nknown) date) [facility] unknown) [facility] Emergency Department.? Urine culture (unknown) (no (unknown) [...] 06/17/22 unknown) @ 00:47 by Hawa Michael [facility]) (unknown) (no (unknown) (unknown) Father [...] are negative to (unknown) (no (unknown) (unknown) [facility] (units (unknown) date) [address] [place] [address] unknown) [place] [address] (unknown) (no (unknown) (unknown) Labs (units (unkno wn) date) unknown) (unknown) (no (unknown) (unknown) Lucein Lan (units (unknown) date) MD Yudi [Primary unknown) Care Provider] (unknown) (no (unknown) (unknown) MNA 10 (at risk (units (unknown) date) for malnutrition), unknown) diet recall suggesting inadequate (unknown) (no (unknown) (unknown) BORDER INSPECTOR Consult (units (un known) date) needed for:: [...] (units (unknown) date) Set up HH unknown) RN/PT/OT/CREAM BEATER for discharge home (unknown) (no (unknown) (unknown) [...] over the last few (units (unknown) date) months.?Process Improvement Consultant unknown) consulted. (unknown) (no (unknown) (unknown) [...] (unknown) date) unknown) (unknown) (no (unknown) (unknown) [id number] (units (unkno wn) date) unknown) (unknown) (no [...] unknown) (unknown) (no (unknown) (unknown) Consult to BORDER INSPECTOR - (units (unknown) date) Child Caregiver unknown) Routine (unknown) (no (unknown) (unknown) Consult [...] (unknown) (unknown) : 1935 (units (unknown) date) Acct:[id number] unknown) (unknown) (no (unknown) (unknown) Date Patient [...] (Reviewed 06/17/22 unknown) @ 00:47 [facility] (unknown) (no (unknown) (unknown) Father (units [...] twice a day (unknown) (no (unknown) (unknown) [facility] (units (unknown) date) [address] unknown) [place] [address] (unknown) (no (unknown) (unknown) Labs (units (unkno wn) date) unknown) (unknown) (no (unknown) (unknown) Lucien Lan (units (unknown) date) MD Yudi [Primary unknown) Care Provider] (unknown) (no (unknown) (unknown) MNA 10 (at risk (units (unknown) date) for malnutrition), unknown) diet recall suggesting inadequate (unknown) (no (unknown) (unknown) BORDER INSPECTOR Consult (units (un known) date) needed for:: unknown) [facility] Need (unknown) (no (unknown) (unknown) Medical History (units (unknown) date) (Updated 06/17/22 unknown) @ 00:55 by Hawa Michael [facility]) (unknown) (no (unknown) (unknown) Mother [...] (units (unknown) date) Set up HH unknown) RN/PT/OT/CREAM BEATER for discharge home (unknown) (no (unknown) (unknown) [...] 06/16/22 unknown) @ 21:27 by Hawa Michael [facility]) (unknown) (no (unknown) (unknown) This is an [...] (unknown) date) unknown) (unknown) (no (unknown) (unknown) [id number] (units (unkno wn) date) unknown) (unknown) (no [...] unknown) (unknown) (no (unknown) (unknown) Consult to BORDER INSPECTOR - (units (unknown) date) Child Caregiver unknown) Routine (unknown) (no (unknown) (unknown) Consult [...] (unknown) (unknown) : 1935 (units (unknown) date) Acct:[id number] unknown) (unknown) (no (unknown) (unknown) Date Patient [...] (Reviewed 06/17/22 unknown) @ 00:47 [facility] (unknown) (no (unknown) (unknown) Father (units [...] twice a day (unknown) (no (unknown) (unknown) [facility] (units (unknown) date) [address] unknown) [place] [address] (unknown) (no (unknown) (unknown) Labs (units (unkno wn) date) unknown) (unknown) (no (unknown) (unknown) Lucien Lan (units (unknown) date) MD Yudi [Primary unknown) Care Provider] (unknown) (no (unknown) (unknown) MNA 10 (at risk (units (unknown) date) for malnutrition), unknown) diet recall suggesting inadequate (unknown) (no (unknown) (unknown) BORDER INSPECTOR Consult (units (un known) date) needed for:: unknown) [facility] Need (unknown) (no (unknown) (unknown) Medical History (units (unknown) date) (Updated 06/17/22 unknown) @ 00:55 by Hawa Michael [facility]) (unknown) (no (unknown) (unknown) Mother [...] (units (unknown) date) Set up HH unknown) RN/PT/OT/CREAM BEATER for discharge home (unknown) (no (unknown) (unknown) [...] 06/16/22 unknown) @ 21:27 by Hawa Michael [facility]) (unknown) (no (unknown) (unknown) This is an [...] facility 2022-06-16 00:00 Never smoked tobacco (finding) [facility] 2022-06-16 00:00 Smoker (finding) [facility] Vital Signs date measurement value units [...]
[2022-08-24 08:12] LABS: ALBUMIN 2.8 g/dL (3.2-5.5); ALBUMIN/GLOBULIN RATIO 0.8 (1.0-2.2); CALCIUM 8.8 mg/dL (8.5-10.3); POTASSIUM 4.1 mmol/L (3.5-5.0); TOTAL PROTEIN 6.5 g/dL (6.7-8.2)
[2022-08-24 08:16] LABS: BILIRUBIN,URINE NEGATIVE (NEGATIVE); GLUCOSE, URINE (UA) NEGATIVE (NEGATIVE); KETONES,URINE (UA) NEGATIVE (NEGATIVE); LEUKOCYTE ESTERASE, URINE TRACE (NEGATIVE); NITRITE,URINE POSITIVE (NEGATIVE); OCCULT BLOOD,URINE MODERATE (NEGATIVE); PROTEIN,URINE 30 mg/dL (NEGATIVE); UROBILINOGEN,URINE 0.2 (NORMAL) E.U./dL (NORMAL)
[2022-08-24] MEDS ORDERED: KETOROLAC 30 MG/ML VIAL IVP STA (08:21)
[2022-08-24] MEDS ORDERED: ACETAMINOPHEN 650 MG SUPP PR STA (08:21)
[2022-08-24 08:24] LABS: CLARITY,URINE HAZY (CLEAR)
[2022-08-24 08:29] LABS: BACTERIA,URINE Moderate /HPF (None Seen); RBC,URINE TNTC /HPF (0-5); SQUAMOUS EPITHELIAL CELL,UR NONE SEEN (<= Few)
--- NOTE | 2022-08-24 08:31 | ED Physician Documentation ---
History of Present Illness - Stated complaint Stated Complaint: ABD PX - Chief complaint Chief Complaint: Abd Pain - History obtained from History obtained from: EMS - Additonal information Additional information: The patient is brought to the emergency department by EMS for chief complaint of altered mental status this morning. Medics state that the family noticed that the patient seemed confused and was a little bit combative. They think the symptoms started today and did not notice this yesterday. No other specific symptoms. No vomiting, coughing, or dyspnea/labored respirations. No other complaints at this time. The patient is delirious and unable to offer any information. 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 He has extensive metastases to his liver and continues on palliative chemo. His family has been presented with the possibility of palliative care and hospice involvement, but have not made a decision as yet whether to place him in either these programs. He is currently a DNR status. He does not use any oxygen at home but does have a chronic indwelling Brice catheter. PD PAST MEDICAL HISTORY - Past Medical History Cardiovascular: Hypertension, High cholesterol, Pulmonary embolism, Atrial fibrillation, Other Respiratory: Asthma Neuro: Dementia Endocrine/Autoimmune: None GI: GERD (w a UMER in 2002), Diverticulitis : Benign prostate hypertrophy (w LUTs, s/p TURP then dilation of stricture then TUR of stricture), Incontinence, Nocturia, Kidney stones, Other (erecctile dysfunction, balanitis) Psych: None Musculoskeletal: Osteoarthritis, Chronic back pain Derm: None, Other - Past Surgical History Past Surgical History: Yes General: Appendectomy, Colonoscopy, EGD, Other Cardiovascular: Pacemaker HEENT: Cataracts Derm: Skin cancer surgery - Present Medications Home Medications: Ambulatory Orders Medication Instructions Recorded Confirmed Apixaban [Eliquis] 5 mg PO BID 07/08/22 08/11/22 Gabapentin [Neurontin] 300 mg PO BID 07/08/22 08/11/22 Binimetinib [Mektovi] 30 mg PO BID 07/09/22 08/11/22 Encorafenib [Braftovi] 300 mg PO DAILY 07/09/22 08/11/22 Fluticasone 44 Mcg [Flovent] 2 puffs INH BID 07/16/22 08/11/22 Acetaminophen [Tylenol] 500 mg PO Q4HR PRN tab 07/28/22 08/11/22 Furosemide [Lasix] 20 mg PO MOWEFR #15 tab 07/28/22 08/11/22 Multivitamin W/Minerals [Theragran 1 tab PO DAILYWM #30 tab 07/28/22 08/11/22 M] Nystatin [Nystop] 1 applic TOP BID #15 gm 07/28/22 08/11/22 Potassium Chloride [Klor-Con] 20 meq PO MOWEFR #15 packet 07/28/22 08/11/22 Tamsulosin [Flomax] 0.4 mg PO DAILY #30 cap 07/28/22 08/11/22 oxyCODONE [Roxicodone] 2.5 - 5 mg PO Q8H PRN #10 tablet 08/11/22 MDD 6 Sulfamethox/Trimeth 800/160 1 each PO BID #14 tablet 08/24/22 [Bactrim Ds 800/160] - Allergies Allergies/Adverse Reactions: Allergies Allergy/AdvReac Type Severity Reaction Status Date / Time pneumococcal vaccine Allergy Hives Verified 08/24/22 18:26 [From Prevnar 13 (PF)] - Social History Does the pt smoke?: No Smoking Status: Never smoker Does the pt drink ETOH?: Yes Does the pt have substance abuse?: No - Immunizations Immunizations are current?: Yes - POLST Patient has POLST: No POLST Status: DNR (per his who has advanced directives at home) PD ED PE NORMAL - General General: No acute distress, Well developed/nourished, Other (The patient makes eye contact and responds to his name but does not speak or respond. He is not in obvious distress. He is clean and appears well cared for.) - HEENT HEENT: Atraumatic, PERRL, Moist mucous membranes, Other (No eye deviation. Patient cannot comply with extraocular muscle exam. Extraocular muscles grossly intact.) - Neck Neck: Supple, no meningeal sign - Cardiac Cardiac: Other (Tachycardic rate regular rhythm. 2 out of 6 systolic murmur.) - Respiratory Respiratory: No respiratory distress, Clear bilaterally - Abdomen Abdomen: Soft, Non tender, Non distended - Back Back: No CVA TTP - Derm Derm: Normal color, Warm and dry, No rash - Extremities Extremities: Other (1+ pitting edema throughout feet, ankles, and distal lower legs.) - Neuro Neuro: Other (Moving all 4 extremities. The patient is awake and does make eye contact when his name is said but is nonverbal and follows some basic commands very slowly.) Results - Vitals Vitals: Vital Signs - 24 hr 08/24/22 08/24/22 08/24/22 07:39 09:20 11:25 Temperature 39.5 C H Heart Rate 118 H 104 H 95 Respiratory 19 20 18 Rate Blood Pressure 128/66 113/49 L 106/55 L O2 Saturation 97 97 99 08/24/22 08/24/22 08/24/22 11:27 11:40 12:20 Temperature 37.9 C 37.9 C Heart Rate 92 Respiratory 17 Rate Blood Pressure 100/52 L O2 Saturation 99 Oxygen O2 Source Ambu bag - Labs Labs: Microbiology 08/24/22 08:43 Blood Culture - Preliminary Blood - Left Arm Laboratory Tests 08/24/22 08/24/22 08/24/22 07:53 07:53 07:53 WBC 13.9 H RBC 3.58 L Hgb 10.1 L Hct 32.3 L MCV 90.2 MCH 28.2 MCHC 31.3 L RDW 15.7 H Plt Count 375 MPV 8.6 Neut # (Auto) 12.8 H Lymph # (Auto) 0.5 L [place] # (Auto) 0.5 Eos # (Auto) 0.0 Baso # (Auto) 0.1 Absolute Nucleated RBC 0.00 Nucleated RBC % 0.0 Sodium 138 Potassium 4.1 Chloride 104 Carbon Dioxide 24 Anion Gap 10.0 BUN 25 H Creatinine 1.0 Estimated GFR (MDRD) 70 L Glucose 118 H Lactic Acid Calcium 8.8 Total Bilirubin 1.0 AST 28 ALT 28 Alkaline Phosphatase 342 H Ammonia 28.5 Total Protein 6.5 L Albumin 2.8 L Globulin 3.7 Albumin/Globulin Ratio 0.8 L Lipase 83 H Urine Color Urine Clarity Urine pH Ur Specific [place] Urine Protein Urine Glucose (UA) Urine Ketones Urine Occult Blood Urine Nitrite Urine Bilirubin Urine Urobilinogen Ur Leukocyte Esterase Urine RBC Urine WBC Ur Squamous Epith Cells Urine Bacteria Ur Microscopic Review Urine Culture Comments Nasal Adenovirus (PCR) Nasal B. parapertussis DNA (PCR) Nasal Coronavir 229E PCR Nasal Coronavir HKU1 PCR Nasal Coronavir NL63 PCR Nasal Coronavir OC43 PCR Nasal Enterovir/Rhinovir PCR Nasal Influenza B PCR Nasal Influenza A PCR Nasal Parainfluen 1 PCR Nasal Parainfluen 2 PCR Nasal Parainfluen 3 PCR Nasal Parainfluen 4 PCR Nasal RSV (PCR) Nasal B.pertussis DNA PCR Nasal C.pneumoniae (PCR) Nathan Human Metapneumo PCR Nasal M.pneumoniae (PCR) Nasal SARS-CoV-2 (PCR) 08/24/22 08/24/22 08/24/22 08:10 08:33 08:40 WBC RBC Hgb Hct MCV MCH MCHC RDW Plt Count MPV Neut # (Auto) Lymph # (Auto) [place] # (Auto) Eos # (Auto) Baso # (Auto) Absolute Nucleated RBC Nucleated RBC % Sodium Potassium Chloride Carbon Dioxide Anion Gap BUN Creatinine Estimated GFR (MDRD) Glucose Lactic Acid 1.1 Calcium Total Bilirubin AST ALT Alkaline Phosphatase Ammonia Total Protein Albumin Globulin Albumin/Globulin Ratio Lipase Urine Color DARK YELLOW Urine Clarity HAZY Urine pH 6.0 Ur Specific [place] 1.020 Urine Protein 30 H Urine Glucose (UA) NEGATIVE Urine Ketones NEGATIVE Urine Occult Blood MODERATE H Urine Nitrite POSITIVE H Urine Bilirubin NEGATIVE Urine Urobilinogen 0.2 (NORMAL) Ur Leukocyte Esterase TRACE H Urine RBC TNTC H Urine WBC 4-5 Ur Squamous Epith Cells NONE SEEN Urine Bacteria Moderate H Ur Microscopic Review INDICATED Urine Culture Comments INDICATED Nasal Adenovirus (PCR) NOT DETECTED Nasal B. parapertussis DNA (PCR) NOT DETECTED Nasal Coronavir 229E PCR NOT DETECTED Nasal Coronavir HKU1 PCR NOT DETECTED Nasal Coronavir NL63 PCR NOT DETECTED Nasal Coronavir OC43 PCR NOT DETECTED Nasal Enterovir/Rhinovir PCR NOT DETECTED Nasal Influenza B PCR NOT DETECTED Nasal Influenza A PCR NOT DETECTED Nasal Parainfluen 1 PCR NOT DETECTED Nasal Parainfluen 2 PCR NOT DETECTED Nasal Parainfluen 3 PCR NOT DETECTED Nasal Parainfluen 4 PCR NOT DETECTED Nasal RSV (PCR) NOT DETECTED Nasal B.pertussis DNA PCR NOT DETECTED Nasal C.pneumoniae (PCR) NOT DETECTED Nathan Human Metapneumo PCR NOT DETECTED Nasal M.pneumoniae (PCR) NOT DETECTED Nasal SARS-CoV-2 (PCR) NOT DETECTED PD Medical Decision Making - ED course Complexity details: reviewed old records, reviewed results, re-evaluated patient, considered differential, d/w patient ED course: The patient was found to be febrile here which I felt was likely the reason for his tachycardia. He was treated with IV fluids, Tylenol, and Toradol. He did appear to have delirium and septic work-up ensued. I did order CBC, ER abdominal panel, lactic acid, blood cultures, urinalysis, respiratory PCR panel, and a chest x-ray. All of the above were reviewed by me with pertinent findings as follows: Moderately elevated white blood cell count at 13.9. Lactic acid level normal at 1.1. Ammonia level 28.5, normal. Respiratory PCR panel negative. Chest x-ray negative. Urinalysis positive. The patient was given 2 g of Rocephin IV. I reevaluated him after his liter of normal saline and the antipyretics and the patient had made drastic improvement. He had remained hemodynamically stable with a normal blood pressure throughout his entire stay in the emergency department. He was alert, conversant, and answering questions appropriately. His heart rate was normal. He stated he felt much better and that instead of feeling hot he now felt "cool". I had an extended conversation with the patient's to the extent that the patient is not septic and is very well-appearing at this time. He has been started on antibiotics here For his UTI and will be given a prescription for antibiotics for at home. The patient is DNR and probably should be on hospice or palliative care, though the family has not moved forward with this at this time. According to records, he is on immunotherapy only and unfortunately, has not been able to take this with regularity for the last few months, due to his recurrent UTIs. The was insistent that the patient ought to be admitted to the hospital and I have discussed with her that at this time, he is doing well and is nonseptic, and is appropriate for trial of oral antibiotics at home. He has not only his but also various caregivers who are assisting. The ultimately required a number of reminders of the extensive work-up that had been done here and the indicators that the patient is not septic at this time. I discussed with her that if blood cultures come back positive, then the patient will need to be in the inpatient setting, and we will contact her. I have ordered a hospice consult for outpatient following discharge, as the has expressed that she is interested in this. She has reiterated that the patient is DNR at this time. The has requested that we remove the Brice catheter from the patient, as it has been in for a month and she is concerned that it is the cause of infection. She states that they have a urology appointment next month and have not followed up with the primary doctor since the patient was discharged a month ago from his last admission for UTI. We have removed the Brice at the 's request. We have discussed the need for fever control at home and I have been very specific with the patient's about a regimen for this. We have discussed the usual indications for return including worsening clinical status. Departure - Departure Disposition: Home, Self Care Clinical Impression: Delirium Urinary tract infection Qualifiers: Urinary tract infection type: acute cystitis Hematuria presence: with hematuria Qualified Code(s): N30.01 - Acute cystitis with hematuria Fever Qualifiers: Fever type: unspecified Qualified Code(s): R50.9 - Fever, unspecified Condition: Stable Instructions: ED UTI Cystitis Male Prescriptions: Sulfamethox/Trimeth 800/160 [Bactrim Ds 800/160] 1 each PO BID #14 tablet Comments: Mr. Cardoso has been evaluated here in the emergency department for his fever and delirium. His delirium resolved once we got his fever down and he has been alert and answering questions appropriately since. He was also hydrated with a liter of saline solution, along with being treated for the fever. He has been found to have a urinary tract infection and has been started on antibiotics for this. He has been given a dose of IV antibiotics here in the emergency department and will be discharged with a prescription for antibiotics for home. This prescription has been electronically transmitted to the [facility] pharmacy in [place]. We have done extensive testing to look for sepsis and any other possible source of infection and the rest of his testing has been negative. The urinary tract infection is expected to respond well to antibiotics at home. You should also give him Tylenol 650 mg every 4 hours to help keep the fevers down until the antibiotics have been able to fully kick in. Please have him follow- up with his primary care physician and his oncologist as needed. Discharge Date/Time: 08/24/22 13:18
[2022-08-24] MEDS ORDERED: cefTRIAXone 2 GM in SODIUM CHLORIDE 0.9% MINIBAG 100 ML IV STA (08:38)
[2022-08-24 09:47] LABS: B. PARAPERTUSSIS- RESP PCR PAN NOT DETECTED; B. PERTUSSIS- RESP PCR PANEL NOT DETECTED; C. PNEUMONIAE- RESP PCR PANEL NOT DETECTED; CORONAVIRUS 229E-RESP PCR NOT DETECTED; CORONAVIRUS HKU1-RESP PCR NOT DETECTED; CORONAVIRUS NL63-RESP PCR NOT DETECTED; CORONAVIRUS OC43-RESP PCR NOT DETECTED; HUMAN METAPNEUMOVIRUS NOT DETECTED; INFLUENZA A- RESP PCR PANEL NOT DETECTED; INFLUENZA B - RESP PCR PANEL NOT DETECTED; M. PNEUMONIAE- RESP PCR PANEL NOT DETECTED; PARAINFLUENZA VIRUS 1 NOT DETECTED; PARAINFLUENZA VIRUS 2 NOT DETECTED; PARAINFLUENZA VIRUS 3 NOT DETECTED; PARAINFLUENZA VIRUS 4 NOT DETECTED; RHINOVIRUS/ENTEROVIRUS NOT DETECTED; RSV- RESP PCR PANEL NOT DETECTED; SARS-CoV-2 -RESP PCR PANEL NOT DETECTED
[2022-08-24 12:30] VITALS: BP 100/52
== END 2022-08-24 13:18 | disposition home or self-care (01) ==
LOC: EDUNIT# → ED 07:35
DX: N30.01 Acute cystitis with hematuria (principal); Z20.822 Contact with and (suspected) exposure to COVID-19; Z66 Do not resuscitate
CPT/HCPCS: 36415; 80053; 81001; 81003; 82140; 83605; 83690; 85025; 87040; 87077; 87086; 87150; 87181; 87633; 96361; 96365; 96375; 99285

== ENCOUNTER 2022-08-24 18:16 | Emergency (ER) | payer MEDICARE, OTHER ==
[2022-08-24] MEDS ORDERED: SODIUM CHLORIDE 0.9% 1,000 ML IV STA (18:28)
[2022-08-24] MEDS ORDERED: cefTRIAXone 2 GM in SODIUM CHLORIDE 0.9% MINIBAG 100 ML IV STA (18:28)
[2022-08-24] MEDS ORDERED: KETOROLAC 30 MG/ML VIAL IVP STA (18:29)
[2022-08-24] MEDS ORDERED: ACETAMINOPHEN 325 MG TABLET PO STA (18:29)
[2022-08-24 18:40] LABS: BASOPHILS # (AUTO) 0.1 10^3/uL (0.0-0.1); BASOPHILS % (AUTO) 0.7 %; EOSINOPHILS # (AUTO) 0.1 10^3/uL (0.0-0.7); EOSINOPHILS % (AUTO) 0.3 %; HCT - HEMATOCRIT 31.5 % (42.0-52.0); HGB - HEMOGLOBIN 9.8 g/dL (14.0-18.0); LYMPHOCYTES # (AUTO) 0.9 10^3/uL (1.5-3.5); LYMPHOCYTES % (AUTO) 5.2 %; MEAN CORPUSCULAR HEMOGLOBIN 28.7 pg (27.0-31.0); MEAN CORPUSCULAR HGB CONC 31.1 g/dL (32.0-36.0); MEAN CORPUSCULAR VOLUME 92.1 fL (80.0-94.0); MEAN PLATELET VOLUME 8.3 fL (7.4-11.4); MONOCYTES # (AUTO) 0.9 10^3/uL (0.0-1.0); MONOCYTES % (AUTO) 5.4 %; NEUTROPHILS # (AUTO) 14.9 10^3/uL (1.5-6.6); NEUTROPHILS % (AUTO) 87.9 %; PLT - PLATELET COUNT 342 10^3/uL (130-450); RED BLOOD COUNT 3.42 10^6/uL (4.70-6.10); RED CELL DISTRIBUTION WIDTH 15.9 % (12.0-15.0); WHITE BLOOD COUNT 16.9 x10^3/uL (4.8-10.8)
--- OUTSIDE RECORDS SUMMARY | 2022-08-24 18:45 | EXTERNAL MEDICAL SUMMARY RPT | Continuity of Care Document ---
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 Functional Status No information. Immunizations No information. Medications date description facility 2022-06-16 00:[address] [facility] 2022-06-16 00:[address] [facility] 2022-06-16 00:[address] [facility] Problems date description facility 2022-06-16 00:[address] [facility] 2022-06-16 00:[address] [facility] 2022-06-16 00:00 Urinary tract infection [facility] 2022-06-16 00:[address] [facility] 2022-06-16 00:00 [facility]vated [facility] 2022-06-16 00:00 Body mass index (BMI) of 22.0 to 22.9 i [address] adult [facility] 2022-06-16 00:00 Presence of cardiac pacemaker [facility] 2022-06-17 00:[address] [facility] 2022-06-17 00:[address] [facility] 2022-06-17 00:[address] [facility] 2022-06-17 00:[address] agent current use 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 therapy [facility] 2022-06-19 13:52 Sepsis, unspecified organism [facility] 2022-06-22 08:33 Sepsis, unspecified organism [facility] 2022-06-22 11:44 Sepsis, unspecified organism [facility] 2022-06-22 14:32 Sepsis, unspecified organism [facility] 2022-06-27 14:23 Sepsis, unspecified organism [facility] 2022-06-27 14:43 Sepsis, unspecified organism [facility] Procedures date description facility 2022-06-16 00:00 Computed tomography of head or brain wi [facility] contrast 2022-06-21 00:[address] [facility] 2022-06-20 00:00 CT soft tissue neck w [facility] denzel 2022-06-16 00:00 X-ray of chest, single view [facility] 2022-06-16 00:00 CT abdomen pelvis w [facility] 2022-06-17 00:00 US Abdomen limited [facility] 2022-06-16 00:00 CT chest w [facility] 2022-06-21 00:00 CT biopsy [facility] Results/Labs test date author facility value unit [...] nown) date) unknown) (unknown) (no (unknown) (unknown) [id number] (units (unkno wn) date) unknown) (unknown) (no (unknown) (unknown) 06/16/22 (units (unkno wn) date) unknown) (unknown) (no (unknown) (unknown) [address] (units (unkn own) date) Street unknown) (unknown) (no (unknown) (unknown) Accession (units (unkn own) date) Number: unknown) [id number] (unknown) (no (unknown) (unknown) Age/Sex: 86 / M (units (unknown) date) Date of Service: unknown) (unknown) (no (unknown) (unknown) [place], [place] (units ( unknown) date) [address] unknown) (unknown) (no (unknown) (unknown) Approved by: (units (u nknown) date) Brandyn Davis M.D. unknown) on 06/16/2022 at 13:03 (unknown) (no (unknown) (unknown) Bones and chest (units (unknown) date) wall: No unknown) suspicious bony lesions. Overlying soft tissues (unknown) (no (unknown) (unknown) COMPARISON: (units (un known) date) None. unknown) (unknown) (no (unknown) (unknown) : 1935 (units (unknown) date) Acct:[id number] unknown) (unknown) (no (unknown) (unknown) Dictated by: (units (u nknown) date) Brandyn Davis M.D. unknown) on 06/16/2022 at 13:02 (unknown) (no (unknown) (unknown) FINDINGS: (units (unkn own) date) unknown) (unknown) (no (unknown) (unknown) IMPRESSION: (units (un known) date) Possible mild unknown) right and retrocardiac opacities could represent (unknown) (no (unknown) (unknown) INDICATIONS: (units (u nknown) date) suspected sepsis unknown) (unknown) (no (unknown) (unknown) [facility] (units (unknown) date) unknown) (unknown) (no [...] nown) date) unknown) (unknown) (no (unknown) (unknown) [id number] (units (unkno wn) date) unknown) (unknown) (no (unknown) (unknown) 06/16/22 (units (unkno wn) date) unknown) (unknown) (no (unknown) (unknown) [address] [place] [address] (units (unknown) date) unknown) (unknown) (no (unknown) (unknown) Accession Number: (units (unknown) date) [id number] unknown) (unknown) (no (unknown) (unknown) Age/Sex: 86 / M (units (unknown) date) Date of Service: unknown) (unknown) (no (unknown) (unknown) [place] (units ( unknown) date) [address] unknown) (unknown) (no (unknown) (unknown) Approved by: [...] (unknown) (unknown) : 1935 (units (unknown) date) Acct:[id number] unknown) (unknown) (no (unknown) (unknown) Dictated by: [...] date) Good unknown) (unknown) (no (unknown) (unknown) [facility] (units (unknown) date) unknown) (unknown) (no [...] nown) date) unknown) (unknown) (no (unknown) (unknown) [id number] (units (unkno wn) date) unknown) (unknown) (no (unknown) (unknown) 06/16/22 (units (unkno wn) date) unknown) (unknown) (no (unknown) (unknown) [address] [place] [address] (units (unknown) date) unknown) (unknown) (no (unknown) (unknown) Accession (units (unkn own) date) Number: unknown) [id number] (unknown) (no (unknown) (unknown) After the (units (unkn own) date) administration of unknown) intravenous contrast, 5 mm thick sections acquired (unknown) (no (unknown) (unknown) Age/Sex: 86 / M (units (unknown) date) Date of Service: unknown) (unknown) (no (unknown) (unknown) [place], [place] (units ( unknown) date) [address] unknown) (unknown) (no (unknown) (unknown) Approved by: (units (u nknown) date) Brandyn Davis M.D. unknown) on 06/16/2022 at 14:52 (unknown) (no (unknown) (unknown) Bones: No acute (units (unknown) date) or suspicious unknown) osseous abnormality. (unknown) (no (unknown) (unknown) COMPARISON: (units (un known) date) [facility], unknown) CR, XR CHEST 1V, 06/16/2022, 12:43. (unknown) (no (unknown) (unknown) CT Scan Report (units (unknown) date) unknown) (unknown) (no (unknown) (unknown) Chest wall and (units (unknown) date) thyroid: unknown) Unremarkable (unknown) (no (unknown) (unknown) : 1935 (units (unknown) date) Acct:[id number] unknown) (unknown) (no (unknown) (unknown) Dictated by: [...] date) Good unknown) (unknown) (no (unknown) (unknown) [facility] (units (unknown) date) unknown) (unknown) (no (unknown) (unknown) Loc: ED (units (unkno wn) date) unknown) (unknown) (no (unknown) (unknown) Lungs and (units (unkn own) date) pleura: Bilateral unknown) jthm-tl-wemqdkay pleural effusions, slightly (unknown) (no (unknown) (unknown) Mediastinum, (units (u nknown) date) heart, and unknown) esophagus: No hiatal hernia. Left chest wall pulse (unknown) (no (unknown) (unknown) Nlii-vf-dvruoevf (units (unknown) date) , unknown) (unknown) (no [...] nown) date) unknown) (unknown) (no (unknown) (unknown) [id number] (units (unkno wn) date) unknown) (unknown) (no [...] (unknown) (unknown) : 1935 (units (unknown) date) Acct:[id number] unknown) (unknown) (no (unknown) (unknown) Data collected (units (unknown) date) from: Patient and unknown) and patient's marketing account executive as well as ER (unknown) (no (unknown) [...] date) Signs: unknown) (unknown) (no (unknown) (unknown) [facility] (units (unknown) date) [address] unknown) [place] [address] (unknown) (no (unknown) (unknown) Lab Data (units [...] (unknown) Lymph # (Auto) (units (unknown) date) (0317-2860) /uL unknown) (unknown) (no (unknown) (unknown) Lymph # (Auto) (units (unknown) date) 400 L (1258-7958) unknown) /uL (unknown) (no (unknown) (unknown) Lymph [...] date) Wheelchair unknown) (unknown) (no (unknown) (unknown) Childress # (Auto) (units ( unknown) date) (0-900) /uL unknown) (unknown) (no (unknown) (unknown) Childress # (Auto) (units ( unknown) date) 900 (0-900) /uL unknown) (unknown) (no (unknown) (unknown) [place] % (Auto) (units ( unknown) date) (3-14) % unknown) (unknown) (no (unknown) (unknown) Childress % (Auto) (units ( unknown) date) 9.4 [...] Neut # (Auto) (units ( unknown) date) (4463-1568) /uL unknown) (unknown) (no (unknown) (unknown) Neut # (Auto) (units ( unknown) date) 8200 H unknown) (5073-8453) /uL (unknown) (no (unknown) (unknown) Neut % [...] (4.5-11.0) unknown) X103/uL (unknown) (no (unknown) (unknown) [facility] (units (unknown) date) ER for evaluation unknown) [...] (units (unk nown) date) strong equal unknown) receivables specialist 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) marketing account executive and he was concern for patient's welfare [...] nown) date) unknown) (unknown) (no (unknown) (unknown) [id number] (units (unkno wn) date) unknown) (unknown) (no [...] (unknown) (unknown) : 1935 (units (unknown) date) Acct:[id number] unknown) (unknown) (no (unknown) (unknown) Data collected (units (unknown) date) from: Patient and unknown) and patient's marketing account executive as well as ER (unknown) (no (unknown) [...] date) Signs: unknown) (unknown) (no (unknown) (unknown) [facility] (units (unknown) date) [address] unknown) [place] [address] (unknown) (no (unknown) (unknown) Lab Data (units [...] (0.7-2.1) mmol/L unknown) (unknown) (no (unknown) (unknown) Lucein Lan [...] (unknown) Lymph # (Auto) (units (unknown) date) (3419-3446) /uL unknown) (unknown) (no (unknown) (unknown) Lymph # (Auto) (units (unknown) date) 400 L (4463-9988) unknown) /uL (unknown) (no (unknown) (unknown) Lymph [...] date) Wheelchair unknown) (unknown) (no (unknown) (unknown) [place] # (Auto) (units ( unknown) date) (0-900) /uL unknown) (unknown) (no (unknown) (unknown) [place] # (Auto) (units ( unknown) date) 900 (0-900) /uL unknown) (unknown) (no (unknown) (unknown) [place] % (Auto) (units ( unknown) date) (3-14) % unknown) (unknown) (no (unknown) (unknown) Childress % (Auto) (units ( unknown) date) 9.4 [...] Neut # (Auto) (units ( unknown) date) (6427-8209) /uL unknown) (unknown) (no (unknown) (unknown) Neut # (Auto) (units ( unknown) date) 8200 H unknown) (7685-8608) /uL (unknown) (no (unknown) (unknown) Neut % [...] (4.5-11.0) unknown) X103/uL (unknown) (no (unknown) (unknown) [facility] (units (unknown) date) ER for evaluation unknown) [...] (units (unk nown) date) strong equal unknown) receivables specialist 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) marketing account executive and he was concern for patient's welfare [...] nown) date) unknown) (unknown) (no (unknown) (unknown) [id number] (units (unkno wn) date) unknown) (unknown) (no [...] date) unknown) (unknown) (no (unknown) (unknown) [address] [place] [address] (units (unknown) date) unknown) (unknown) (no (unknown) [...] (unknown) (unknown) Accession Number: (units (unknown) date) [id number] ?? unknown) (unknown) (no (unknown) (unknown) Accession Number: (units (unknown) date) [id number] ?? unknown) (unknown) (no (unknown) (unknown) Accession Number: (units (unknown) date) [id number] ?? unknown) (unknown) (no (unknown) (unknown) Acct:[id number] (units (unknown) date) unknown) (unknown) (no (unknown) [...] (unknown) TAYLOR Moreno (units ( unknown) date) [address] unknown) (unknown) (no (unknown) (unknown) Approved by: [...] (unknown) (unknown) COMPARISON:? (units (u nknown) date) [facility], unknown) CR, XR CHEST 1V, 06/16/2022, [...] (unknown) (unknown) : 1935 (units (unknown) date) Acct:[id number] unknown) (unknown) (no (unknown) (unknown) : 1935 (units (unknown) date) unknown) (unknown) (no (unknown) (unknown) Data collected (units (unknown) date) from: Patient and unknown) and patient's marketing account executive as well as ER (unknown) (no (unknown) [...] date) Signs: unknown) (unknown) (no (unknown) (unknown) [facility] (units (unknown) date) [address] unknown) [place] [address] (unknown) (no (unknown) (unknown) [facility] (units (unknown) date) unknown) (unknown) (no [...] (units (unkn own) date) pleura:? Bilateral unknown) hdxt-zy-aiwozuwa pleural effusions, slightly (unknown) (no (unknown) (unknown) Lungs and pleura:? (units (unknown) date) Low lung volumes.? unknown) Possible mild right and retrocardiac basal (unknown) (no (unknown) (unknown) Lymph # (Auto) (units (unknown) date) (9557-7351) /uL unknown) (unknown) (no (unknown) (unknown) Lymph # (Auto) (units (unknown) date) 400 L (6956-8861) unknown) /uL (unknown) (no (unknown) (unknown) Lymph [...] date) unknown) (unknown) (no (unknown) (unknown) MR#: [id number] (units (unknown) date) unknown) (unknown) (no (unknown) [...] unknown) Recorded Confirmed (unknown) (no (unknown) (unknown) Ogwp-ud-iqrzbhuq, (units (unknown) date) unknown) (unknown) (no (unknown) (unknown) Mode of arrival: (units (unknown) date) Wheelchair unknown) (unknown) (no (unknown) (unknown) Child[place] # (Auto) (units ( unknown) date) (0-900) /uL unknown) (unknown) (no (unknown) (unknown) [place] # (Auto) 900 (units (unknown) date) (0-900) /uL unknown) (unknown) (no (unknown) (unknown) [place] % (Auto) (units ( unknown) date) (3-14) % unknown) (unknown) (no (unknown) (unknown) Childress % (Auto) 9.4 (units (unknown) date) (3-14) [...] Neut # (Auto) (units ( unknown) date) (7222-0228) /uL unknown) (unknown) (no (unknown) (unknown) Neut # (Auto) (units ( unknown) date) 8200 H (9760-4199) unknown) /uL (unknown) (no (unknown) (unknown) Neut [...] (4.5-11.0) X103/uL unknown) (unknown) (no (unknown) (unknown) [facility] (units (unknown) date) ER for evaluation unknown) [...] hands with strong (units (unknown) date) equal receivables specialist unknown) 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 (unknown) (no [...] with (units (unk nown) date) patient's unknown) marketing account executive and he was concern for patient's welfare [...] nown) date) unknown) (unknown) (no (unknown) (unknown) [id number] (units (unkno wn) date) unknown) (unknown) (no [...] date) unknown) (unknown) (no (unknown) (unknown) [address] [place] [address] (units (unknown) date) unknown) (unknown) (no (unknown) [...] (unknown) (unknown) Accession Number: (units (unknown) date) [id number] ?? unknown) (unknown) (no (unknown) (unknown) Accession Number: (units (unknown) date) [id number] ?? unknown) (unknown) (no (unknown) (unknown) Accession Number: (units (unknown) date) [id number] ?? unknown) (unknown) (no (unknown) (unknown) Acct:[id number] (units (unknown) date) unknown) (unknown) (no (unknown) [...] Date / Time (unknown) (no (unknown) (unknown) [place], [place] (units ( unknown) date) [address] unknown) (unknown) (no (unknown) (unknown) Approved by: [...] (unknown) (unknown) COMPARISON:? (units (u nknown) date) [facility], unknown) CR, XR CHEST 1V, 06/16/2022, [...] (unknown) (unknown) : 1935 (units (unknown) date) Acct:[id number] unknown) (unknown) (no (unknown) (unknown) : 1935 (units (unknown) date) unknown) (unknown) (no (unknown) (unknown) Data collected (units (unknown) date) from: Patient and unknown) and patient's marketing account executive as well as ER (unknown) (no (unknown) [...] date) Signs: unknown) (unknown) (no (unknown) (unknown) [facility] (units (unknown) date) [address] unknown) [place] [address] (unknown) (no (unknown) (unknown) [facility] (units (unknown) date) unknown) (unknown) (no [...] (units (unkn own) date) pleura:? Bilateral unknown) ywzk-xo-sksumblm pleural effusions, slightly (unknown) (no (unknown) (unknown) Lungs and pleura:? (units (unknown) date) Low lung volumes.? unknown) Possible mild right and retrocardiac basal (unknown) (no (unknown) (unknown) Lymph # (Auto) (units (unknown) date) (6913-6771) /uL unknown) (unknown) (no (unknown) (unknown) Lymph # (Auto) (units (unknown) date) 400 L (9616-1789) unknown) /uL (unknown) (no (unknown) (unknown) Lymph [...] date) unknown) (unknown) (no (unknown) (unknown) MR#: [id number] (units (unknown) date) unknown) (unknown) (no (unknown) [...] unknown) Recorded Confirmed (unknown) (no (unknown) (unknown) Ftgt-cd-ezftupfx, (units (unknown) date) unknown) (unknown) (no (unknown) (unknown) Mode of arrival: (units (unknown) date) Wheelchair unknown) (unknown) (no (unknown) (unknown) Childress # (Auto) (units ( unknown) date) (0-900) /uL unknown) (unknown) (no (unknown) (unknown) Childress # (Auto) 900 (units (unknown) date) (0-900) /uL unknown) (unknown) (no (unknown) (unknown) Childress % (Auto) (units ( unknown) date) (3-14) % unknown) (unknown) (no (unknown) (unknown) Childress % (Auto) 9.4 (units (unknown) date) (3-14) [...] Neut # (Auto) (units ( unknown) date) (5136-3211) /uL unknown) (unknown) (no (unknown) (unknown) Neut # (Auto) (units ( unknown) date) 8200 H (8241-9563) unknown) /uL (unknown) (no (unknown) (unknown) Neut [...] (unknown) Patient: (units (unkno wn) date) Yoseph Cardsoo unknown) (unknown) (no (unknown) (unknown) Plt Count [...] (4.5-11.0) X103/uL unknown) (unknown) (no (unknown) (unknown) [facility] (units (unknown) date) ER for evaluation unknown) [...] hands with strong (units (unknown) date) equal receivables specialist unknown) 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 (unknown) (no [...] with (units (unk nown) date) patient's unknown) marketing account executive and he was concern for patient's welfare [...] (unknown) date) unknown) (unknown) (no (unknown) (unknown) [id number] (units (unkno wn) date) unknown) (unknown) (no [...] (unknown) (unknown) : 1935 (units (unknown) date) Acct:[id number] unknown) (unknown) (no (unknown) (unknown) Date Patient [...] date) (RT-PCR) unknown) (unknown) (no (unknown) (unknown) 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 Multiple (units (un known) date) ill-defined unknown) hypoattenuating mass lesions throughout the liver. The (unknown) (no (unknown) (unknown) [address] (units (unknown) date) unknown) (unknown) (no (unknown) (unknown) 2. Numerous small (units (unknown) date) hypoattenuating unknown) lesions throughout the spleen are also (unknown) (no (unknown) (unknown) ABDOMEN: (units (unkno wn) date) unknown) (unknown) (no (unknown) (unknown) Abdominal Nodes: (units (unknown) date) No retroperitoneal unknown) or mesenteric adenopathy by size criteria. (unknown) (no (unknown) (unknown) Accession Number: (units (unknown) date) [id number] unknown) (unknown) (no (unknown) (unknown) Adrenal Glands: (units (unknown) date) No adrenal unknown) nodules. (unknown) (no (unknown) (unknown) After the (units (unkn own) date) administration of unknown) IV contrast, axial sections were acquired from the (unknown) (no (unknown) (unknown) Age/Sex: 86 / M (units (unknown) date) Date of Service: unknown) (unknown) (no (unknown) (unknown) [place], [place] (units ( unknown) date) [address] unknown) (unknown) (no (unknown) (unknown) Approved by: [...] (unknown) (unknown) : 1935 (units (unknown) date) Acct:[id number] unknown) (unknown) (no (unknown) (unknown) Dictated by: [...] date) Excellent. unknown) (unknown) (no (unknown) (unknown) [facility] (units (unknown) date) unknown) (unknown) (no [...] (unknown) date) unknown) (unknown) (no (unknown) (unknown) [id number] (units (unkno wn) date) unknown) (unknown) (no [...] (unknown) (unknown) : 1935 (units (unknown) date) Acct:[id number] unknown) (unknown) (no (unknown) (unknown) Date Patient [...] date) (RT-PCR) unknown) (unknown) (no (unknown) (unknown) [facility] (units (unknown) date) [address] [place] [address] unknown) [place] [address] (unknown) (no (unknown) (unknown) Laboratory (units (unk [...] wn) date) unknown) (unknown) (no (unknown) (unknown) Childress # (Auto) (units ( unknown) date) 900 unknown) (unknown) (no (unknown) (unknown) Childress # (Auto) (units ( unknown) date) unknown) (unknown) (no (unknown) (unknown) Childress % (Auto) (units ( unknown) date) 9.4 unknown) (unknown) (no (unknown) (unknown) Childress % (Auto) (units ( unknown) date) unknown) [...] (units (unkn own) date) Hawa Michael unknown) HEAVY DUTY DIESEL MECHANIC-BC (unknown) (no (unknown) (unknown) Pulse Oximetry (units [...] (unknown) Ur Specific (units (un known) date) [place] 1.020 unknown) (unknown) (no (unknown) (unknown) Ur Specific (units (un known) date) [place] unknown) (unknown) (no (unknown) (unknown) Ur Squamous [...] (unknown) date) unknown) (unknown) (no (unknown) (unknown) [id number] (units (unkno wn) date) unknown) (unknown) (no [...] (unknown) (unknown) : 1935 (units (unknown) date) Acct:[id number] unknown) (unknown) (no (unknown) (unknown) Date Patient [...] date) (RT-PCR) unknown) (unknown) (no (unknown) (unknown) [facility] (units (unknown) date) [address] unknown) [place] [address] (unknown) (no (unknown) (unknown) Laboratory (units (unk [...] 06/16/22 unknown) @ 21:27 by Hawa Michael [facility]) (unknown) (no (unknown) (unknown) Medication (units (unk nown) date) Instructions unknown) Recorded Confirmed Type (unknown) (no (unknown) (unknown) Meds (units (unkno wn) date) unknown) (unknown) (no (unknown) (unknown) Childress # (Auto) (units ( unknown) date) 900 unknown) (unknown) (no (unknown) (unknown) Childress # (Auto) (units ( unknown) date) unknown) (unknown) (no (unknown) (unknown) Childress % (Auto) (units ( unknown) date) 9.4 unknown) (unknown) (no (unknown) (unknown) Childress % (Auto) (units ( unknown) date) unknown) [...] (units (unkn own) date) Hawa Michael unknown) HEAVY DUTY DIESEL MECHANIC-BC (unknown) (no (unknown) (unknown) Psych: Patient (units [...] 06/16/22 unknown) @ 21:27 by Hawa Michael [facility]) (unknown) (no (unknown) (unknown) Temperature 98.1 (units [...] (unknown) Ur Specific (units (un known) date) [place] 1.020 unknown) (unknown) (no (unknown) (unknown) Ur Specific (units (un known) date) [place] unknown) (unknown) (no (unknown) (unknown) Ur Squamous [...] (unknown) (no date) (unknown) (unknown) 1.8 ng/ml 55309 -7 (unknown) (no date) (unknown) (unknown) 1.8 ng/ml (unkn own) (unknown) (no date) (unknown) (unknown) Negative (units (unkn own) unknown) (unknown) (no date) (unknown) (unknown) Negative (units 38860 -1 unknown) (unknown) (no date) (unknown) (unknown) Negative (units 39728 -3 unknown) (unknown) (no date) (unknown) (unknown) [...] (unknown) date) unknown) (unknown) (no (unknown) (unknown) [id number] (units (unkno wn) date) unknown) (unknown) (no [...] (unknown) (unknown) : 1935 (units (unknown) date) Acct:[id number] unknown) (unknown) (no (unknown) (unknown) Date Patient [...] date) (RT-PCR) unknown) (unknown) (no (unknown) (unknown) [facility] (units (unknown) date) [address] unknown) [place] [address] (unknown) (no (unknown) (unknown) Laboratory (units (unk [...] wn) date) unknown) (unknown) (no (unknown) (unknown) Childress # (Auto) (units ( unknown) date) 900 unknown) (unknown) (no (unknown) (unknown) Childress # (Auto) (units ( unknown) date) unknown) (unknown) (no (unknown) (unknown) Child[place] % (Auto) (units ( unknown) date) 9.4 unknown) (unknown) (no (unknown) (unknown) Childress % (Auto) (units ( unknown) date) unknown) [...] (units (unkn own) date) Hawa Michael unknown) HEAVY DUTY DIESEL MECHANIC-BC (unknown) (no (unknown) (unknown) Psych: Patient (units [...] (unknown) Ur Specific (units (un known) date) [place] 1.020 unknown) (unknown) (no (unknown) (unknown) Ur Specific (units (un known) date) [place] unknown) (unknown) (no (unknown) (unknown) Ur Squamous [...] nown) date) unknown) (unknown) (no (unknown) (unknown) [id number] (units (unkno wn) date) unknown) (unknown) (no (unknown) (unknown) 06/17/22 (units (unkno wn) date) unknown) (unknown) (no (unknown) (unknown) [address] [place] [address] (units (unknown) date) unknown) (unknown) (no (unknown) (unknown) Accession Number: (units (unknown) date) [id number] unknown) (unknown) (no (unknown) (unknown) Age/Sex: 86 / M (units (unknown) date) Date of Service: unknown) (unknown) (no (unknown) (unknown) [place], [place] (units ( unknown) date) [address] unknown) (unknown) (no (unknown) (unknown) Approved by: Feliberto (units (unknown) date) Azar Mendoza on unknown) 06/17/2022 at 10:08 (unknown) (no (unknown) (unknown) Biliary ducts: (units (unknown) date) Intrahepatic bile unknown) ducts are non-dilated. Extrahepatic bile (unknown) (no (unknown) (unknown) COMPARISON: (units (un known) date) [facility], unknown) CT, CT ABDOMEN PELVIS W CON, 06/16/2022, 21:22. (unknown) (no (unknown) (unknown) CT 06/16/2019 (units ( unknown) date) unknown) (unknown) (no (unknown) (unknown) : 1935 (units (unknown) date) Acct:[id number] unknown) (unknown) (no (unknown) (unknown) Diffusely (units [...] LIVER unknown) METS (unknown) (no (unknown) (unknown) [facility] (units (unknown) date) unknown) (unknown) (no [...] (unknown) date) unknown) (unknown) (no (unknown) (unknown) [id number] (units (unkno wn) date) unknown) (unknown) (no [...] (unknown) (unknown) : 1935 (units (unknown) date) Acct:[id number] unknown) (unknown) (no (unknown) (unknown) Date Patient [...] date) (RT-PCR) unknown) (unknown) (no (unknown) (unknown) [facility] (units (unknown) date) [address] unknown) [place] [address] (unknown) (no (unknown) (unknown) Laboratory (units (unk [...] wn) date) unknown) (unknown) (no (unknown) (unknown) Childress # (Auto) (units ( unknown) date) 900 unknown) (unknown) (no (unknown) (unknown) [place] # (Auto) (units ( unknown) date) unknown) (unknown) (no (unknown) (unknown) [place] % (Auto) (units ( unknown) date) 9.4 unknown) (unknown) (no (unknown) (unknown) Childress % (Auto) (units ( unknown) date) unknown) [...] (units (unkn own) date) Hawa Michael unknown) HEAVY DUTY DIESEL MECHANIC-BC (unknown) (no (unknown) (unknown) Psych: Patient (units [...] (unknown) Ur Specific (units (un known) date) [place] 1.020 unknown) (unknown) (no (unknown) (unknown) Ur Specific (units (un known) date) [place] unknown) (unknown) (no (unknown) (unknown) Ur Squamous [...] (unknown) date) unknown) (unknown) (no (unknown) (unknown) [id number] (units (unkno wn) date) unknown) (unknown) (no [...] (unknown) (unknown) : 1935 (units (unknown) date) Acct:[id number] unknown) (unknown) (no (unknown) (unknown) Date Patient [...] 06/17/22 unknown) @ 00:47 by Hawa Michael [facility]) (unknown) (no (unknown) (unknown) Father (units (unknown) [...] date) (RT-PCR) unknown) (unknown) (no (unknown) (unknown) [facility] (units (unknown) date) [address] unknown) [place] [address] (unknown) (no (unknown) (unknown) Laboratory (units (unk [...] 06/17/22 unknown) @ 00:55 by Hawa Michael [facility]) (unknown) (no (unknown) (unknown) Medication (units (unk nown) date) Instructions unknown) Recorded Confirmed Type (unknown) (no (unknown) (unknown) Meds (units (unkno wn) date) unknown) (unknown) (no (unknown) (unknown) Child[place] # (Auto) 900 (units (unknown) date) unknown) (unknown) (no (unknown) (unknown) [place] # (Auto) (units ( unknown) date) unknown) (unknown) (no (unknown) (unknown) [place] % (Auto) 9.4 (units (unknown) date) unknown) (unknown) (no (unknown) (unknown) Child[place] % (Auto) (units ( unknown) date) unknown) [...] (units (unkn own) date) Hawa Michael unknown) HEAVY DUTY DIESEL MECHANIC-BC (unknown) (no (unknown) (unknown) Psych: Patient (units [...] 06/16/22 unknown) @ 21:27 by Hawa Michael [facility]-) (unknown) (no (unknown) (unknown) Temperature 98.1 [...] (unknown) Ur Specific (units (un known) date) [place] 1.020 unknown) (unknown) (no (unknown) (unknown) Ur Specific (units (un known) date) [place] unknown) (unknown) (no (unknown) (unknown) Ur Squamous [...] unknown) pending, transaminitis (unknown) (no (unknown) (unknown) [id number] (units (unkno wn) date) unknown) (unknown) (no [...] (unknown) (unknown) : 1935 (units (unknown) date) Acct:[id number] unknown) (unknown) (no (unknown) (unknown) Date Patient [...] 06/17/22 unknown) @ 00:47 by Hawa Michael [facility]) (unknown) (no (unknown) (unknown) Father (units (unknown) [...] date) (RT-PCR) unknown) (unknown) (no (unknown) (unknown) [facility] (units (unknown) date) [address] unknown) [place] [address] (unknown) (no (unknown) (unknown) Laboratory (units (unk [...] wn) date) unknown) (unknown) (no (unknown) (unknown) Childress # (Auto) 900 (units (unknown) date) unknown) (unknown) (no (unknown) (unknown) [place] # (Auto) (units ( unknown) date) unknown) (unknown) (no (unknown) (unknown) [place] % (Auto) 9.4 (units (unknown) date) unknown) (unknown) (no (unknown) (unknown) [place] % (Auto) (units ( unknown) date) unknown) [...] (units (unkn own) date) Hawa Michael unknown) HEAVY DUTY DIESEL MECHANIC-BC (unknown) (no (unknown) (unknown) Psych: Patient (units [...] 06/16/22 unknown) @ 21:27 by Hawa Michael [facility]) (unknown) (no (unknown) (unknown) Temperature 98.1 (units [...] (unknown) Ur Specific (units (un known) date) [place] 1.020 unknown) (unknown) (no (unknown) (unknown) Ur Specific (units (un known) date) [place] unknown) (unknown) (no (unknown) (unknown) Ur Squamous [...] unknown) pending, transaminitis (unknown) (no (unknown) (unknown) [id number] (units (unkno wn) date) unknown) (unknown) (no [...] (unknown) (unknown) : 1935 (units (unknown) date) Acct:[id number] unknown) (unknown) (no (unknown) (unknown) Date Patient [...] 06/17/22 unknown) @ 00:47 by Hawa Michael HEAVY DUTY DIESEL MECHANICJames) (unknown) (no (unknown) (unknown) Father (units (unknown) [...] date) (RT-PCR) unknown) (unknown) (no (unknown) (unknown) [facility] (units (unknown) date) [address] unknown) [place] [address] (unknown) (no (unknown) (unknown) Laboratory (units (unk [...] 06/17/22 unknown) @ 00:55 by Hawa Michael [facility]) (unknown) (no (unknown) (unknown) Medication (units (unk nown) date) Instructions unknown) Recorded Confirmed Type (unknown) (no (unknown) (unknown) Meds (units (unkno wn) date) unknown) (unknown) (no (unknown) (unknown) [place] # (Auto) 900 (units (unknown) date) unknown) (unknown) (no (unknown) (unknown) [place] # (Auto) (units ( unknown) date) unknown) (unknown) (no (unknown) (unknown) [place] % (Auto) 9.4 (units (unknown) date) unknown) (unknown) (no (unknown) (unknown) [place] % (Auto) (units ( unknown) date) unknown) [...] (units (unkn own) date) Hawa Michael unknown) HEAVY DUTY DIESEL MECHANIC-BC (unknown) (no (unknown) (unknown) Psych: Patient (units [...] (unknown) Ur Specific (units (un known) date) [place] 1.020 unknown) (unknown) (no (unknown) (unknown) Ur Specific (units (un known) date) [place] unknown) (unknown) (no (unknown) (unknown) Ur Squamous [...] unknown) pending, transaminitis (unknown) (no (unknown) (unknown) [id number] (units (unkno wn) date) unknown) (unknown) (no [...] (unknown) (unknown) : 1935 (units (unknown) date) Acct:[id number] unknown) (unknown) (no (unknown) (unknown) Date Patient [...] date) (RT-PCR) unknown) (unknown) (no (unknown) (unknown) [facility] (units (unknown) date) [address] [place] [address] unknown) [place] [address] (unknown) (no (unknown) (unknown) Laboratory (units (unk [...] (Updated 06/17/22 unknown) @ 00:55 by [facility] (unknown) (no (unknown) (unknown) Medication (units (unk nown) date) Instructions unknown) Recorded Confirmed Type (unknown) (no (unknown) (unknown) Meds (units (unkno wn) date) unknown) (unknown) (no (unknown) (unknown) [place] # (Auto) 900 (units (unknown) date) unknown) (unknown) (no (unknown) (unknown) [place] # (Auto) (units ( unknown) date) unknown) (unknown) (no (unknown) (unknown) [place] % (Auto) 9.4 (units (unknown) date) unknown) (unknown) (no (unknown) (unknown) [place] % (Auto) (units ( unknown) date) unknown) [...] (units (unkn own) date) Hawa Michael unknown) HEAVY DUTY DIESEL MECHANIC-BC (unknown) (no (unknown) (unknown) Psych: Patient (units [...] (unknown) Ur Specific (units (un known) date) [place] 1.020 unknown) (unknown) (no (unknown) (unknown) Ur Specific (units (un known) date) [place] unknown) (unknown) (no (unknown) (unknown) Ur Squamous [...] unknown) pending, transaminitis (unknown) (no (unknown) (unknown) [id number] (units (unkno wn) date) unknown) (unknown) (no [...] (unknown) (unknown) : 1935 (units (unknown) date) Acct:[id number] unknown) (unknown) (no (unknown) (unknown) Date Patient [...] 06/17/22 unknown) @ 00:47 by Hawa Michael [facility]) (unknown) (no (unknown) (unknown) Father (units (unknown) [...] date) (RT-PCR) unknown) (unknown) (no (unknown) (unknown) [facility] (units (unknown) date) [address] unknown) [place] [address] (unknown) (no (unknown) (unknown) Laboratory (units (unk [...] wn) date) unknown) (unknown) (no (unknown) (unknown) [place] # (Auto) 900 (units (unknown) date) unknown) (unknown) (no (unknown) (unknown) [place] # (Auto) (units ( unknown) date) unknown) (unknown) (no (unknown) (unknown) [place] % (Auto) 9.4 (units (unknown) date) unknown) (unknown) (no (unknown) (unknown) Child[place] % (Auto) (units ( unknown) date) unknown) [...] (units (unkn own) date) Hawa Michael unknown) HEAVY DUTY DIESEL MECHANIC-BC (unknown) (no (unknown) (unknown) Psych: Patient (units [...] 06/16/22 unknown) @ 21:27 by Hawa Michael [facility]) (unknown) (no (unknown) (unknown) Temperature 98.1 (units [...] (unknown) Ur Specific (units (un known) date) [place] 1.020 unknown) (unknown) (no (unknown) (unknown) Ur Specific (units (un known) date) [place] unknown) (unknown) (no (unknown) (unknown) Ur Squamous [...] 3+, leuks, RBC (unknown) (no (unknown) (unknown) [id number] (units (unkno wn) date) unknown) (unknown) (no [...] (unknown) (unknown) : 1935 (units (unknown) date) Acct:[id number] unknown) (unknown) (no (unknown) (unknown) Date Patient [...] 06/17/22 unknown) @ 00:47 by Hawa Michael [facility]) (unknown) (no (unknown) (unknown) Father (units (unknown) [...] date) (RT-PCR) unknown) (unknown) (no (unknown) (unknown) [facility] (units (unknown) date) [address] unknown) [place] [address] (unknown) (no (unknown) (unknown) Laboratory (units (unk [...] wn) date) unknown) (unknown) (no (unknown) (unknown) Childress # (Auto) 900 (units (unknown) date) unknown) (unknown) (no (unknown) (unknown) [place] # (Auto) (units ( unknown) date) unknown) (unknown) (no (unknown) (unknown) [place] % (Auto) 9.4 (units (unknown) date) unknown) (unknown) (no (unknown) (unknown) Child[place] % (Auto) (units ( unknown) date) unknown) [...] (units (unkn own) date) Hawa Michael unknown) HEAVY DUTY DIESEL MECHANIC-BC (unknown) (no (unknown) (unknown) Psych: Patient (units [...] 06/16/22 unknown) @ 21:27 by Hawa Michael [facility]) (unknown) (no (unknown) (unknown) Temperature 98.1 (units [...] (unknown) Ur Specific (units (un known) date) [place] 1.020 unknown) (unknown) (no (unknown) (unknown) Ur Specific (units (un known) date) [place] unknown) (unknown) (no (unknown) (unknown) Ur Squamous [...] 3+, leuks, RBC (unknown) (no (unknown) (unknown) [id number] (units (unkno wn) date) unknown) (unknown) (no [...] (unknown) (unknown) : 1935 (units (unknown) date) Acct:[id number] unknown) (unknown) (no (unknown) (unknown) Date Patient [...] date) (RT-PCR) unknown) (unknown) (no (unknown) (unknown) [facility] (units (unknown) date) [address] unknown) [place] [address] (unknown) (no (unknown) (unknown) Laboratory (units (unk [...] wn) date) unknown) (unknown) (no (unknown) (unknown) [place] # (Auto) 900 (units (unknown) date) unknown) (unknown) (no (unknown) (unknown) [place] # (Auto) (units ( unknown) date) unknown) (unknown) (no (unknown) (unknown) [place] % (Auto) 9.4 (units (unknown) date) unknown) (unknown) (no (unknown) (unknown) Childress % (Auto) (units ( unknown) date) unknown) [...] (units (unkn own) date) Hawa Michael unknown) HEAVY DUTY DIESEL MECHANIC-BC (unknown) (no (unknown) (unknown) Psych: Patient (units [...] 06/16/22 unknown) @ 21:27 by Hawa Michael [facility]) (unknown) (no (unknown) (unknown) Temperature 98.1 (units [...] (unknown) Ur Specific (units (un known) date) [place] 1.020 unknown) (unknown) (no (unknown) (unknown) Ur Specific (units (un known) date) [place] unknown) (unknown) (no (unknown) (unknown) Ur Squamous [...] 3+, leuks, RBC (unknown) (no (unknown) (unknown) [id number] (units (unkno wn) date) unknown) (unknown) (no [...] (unknown) (unknown) : 1935 (units (unknown) date) Acct:[id number] unknown) (unknown) (no (unknown) (unknown) DVT/VTE (units [...] 06/17/22 unknown) @ 00:47 by Hawa Michael [facility]) (unknown) (no (unknown) (unknown) Father (units (unknown) [...] date) (RT-PCR) unknown) (unknown) (no (unknown) (unknown) [facility] (units (unknown) date) [address] unknown) [place] [address] (unknown) (no (unknown) (unknown) Laboratory (units (unk [...] 06/17/22 unknown) @ 00:55 by Hawa Michael [facility]) (unknown) (no (unknown) (unknown) Medication (units (unk nown) date) Instructions unknown) Recorded Confirmed Type (unknown) (no (unknown) (unknown) Meds (units (unkno wn) date) unknown) (unknown) (no (unknown) (unknown) Child[place] # (Auto) 900 (units (unknown) date) unknown) (unknown) (no (unknown) (unknown) [place] # (Auto) (units ( unknown) date) unknown) (unknown) (no (unknown) (unknown) [place] % (Auto) 9.4 (units (unknown) date) unknown) (unknown) (no (unknown) (unknown) Child[place] % (Auto) (units ( unknown) date) unknown) [...] (units (unkn own) date) Hawa Michael unknown) HEAVY DUTY DIESEL MECHANIC-BC (unknown) (no (unknown) (unknown) Psych: Patient (units [...] date) (Updated 06/16/22 unknown) @ 21:27 by ACSEY Crystal) (unknown) (no (unknown) (unknown) Surrogate (units [...] (unknown) Ur Specific (units (un known) date) [place] 1.020 unknown) (unknown) (no (unknown) (unknown) Ur Specific (units (un known) date) [place] unknown) (unknown) (no (unknown) (unknown) Ur Squamous [...] (unknown) -consult for (units (u nknown) date) PT/OT/CANCER PROGRAM CONSULTANT-social unknown) work: Concerned patient is not safe [...] 3+, leuks, RBC (unknown) (no (unknown) (unknown) [id number] (units (unkno wn) date) unknown) (unknown) (no [...] (unknown) (unknown) : 1935 (units (unknown) date) Acct:[id number] unknown) (unknown) (no (unknown) (unknown) DVT/VTE (units [...] 06/17/22 unknown) @ 00:47 by Hawa Michael [facility]) (unknown) (no (unknown) (unknown) Father (units (unknown) [...] date) (RT-PCR) unknown) (unknown) (no (unknown) (unknown) [facility] (units (unknown) date) [address] unknown) [place] [address] (unknown) (no (unknown) (unknown) Laboratory (units (unk [...] (Updated 06/17/22 unknown) @ 00:55 by [facility]) (unknown) (no (unknown) (unknown) Medication (units (unk nown) date) Instructions unknown) Recorded Confirmed Type (unknown) (no (unknown) (unknown) Meds (units (unkno wn) date) unknown) (unknown) (no (unknown) (unknown) Child[place] # (Auto) 900 (units (unknown) date) unknown) (unknown) (no (unknown) (unknown) [place] # (Auto) (units ( unknown) date) unknown) (unknown) (no (unknown) (unknown) [place] % (Auto) 9.4 (units (unknown) date) unknown) (unknown) (no (unknown) (unknown) Child[place] % (Auto) (units ( unknown) date) unknown) [...] (units (unkn own) date) Hawa Michael unknown) HEAVY DUTY DIESEL MECHANIC-BC (unknown) (no (unknown) (unknown) Psych: Patient (units [...] wn) date) By:<Electronically unknown) signed by Hawa [facility] Alec> (unknown) (no (unknown) (unknown) Skin: Warm [...] 06/16/22 unknown) @ 21:27 by Hawa Michael [facility]) (unknown) (no (unknown) (unknown) Surrogate (units (unkn [...] (unknown) Ur Specific (units (un known) date) [place] 1.020 unknown) (unknown) (no (unknown) (unknown) Ur Specific (units (un known) date) [place] unknown) (unknown) (no (unknown) (unknown) Ur Squamous [...] consult (units (unknown) date) evaluations by unknown) PT/OT/CANCER PROGRAM CONSULTANT. (unknown) (no (unknown) (unknown) wheezes, rhonchi, (units [...] (unknown) -consult for (units (u nknown) date) PT/OT/CANCER PROGRAM CONSULTANT-social unknown) work: Concerned patient is not safe [...] 3+, leuks, RBC (unknown) (no (unknown) (unknown) [id number] (units (unkno wn) date) unknown) (unknown) (no [...] (unknown) (unknown) : 1935 (units (unknown) date) Acct:[id number] unknown) (unknown) (no (unknown) (unknown) DVT/VTE (units [...] 06/17/22 unknown) @ 00:47 by Hawa Michael [facility]) (unknown) (no (unknown) (unknown) Father (units (unknown) [...] date) (RT-PCR) unknown) (unknown) (no (unknown) (unknown) [facility] (units (unknown) date) [address] unknown) [place] [address] (unknown) (no (unknown) (unknown) Laboratory (units (unk [...] 06/17/22 unknown) @ 00:55 by Hawa Michael [facility]) (unknown) (no (unknown) (unknown) Medication (units (unk nown) date) Instructions unknown) Recorded Confirmed Type (unknown) (no (unknown) (unknown) Meds (units (unkno wn) date) unknown) (unknown) (no (unknown) (unknown) Child[place] # (Auto) 900 (units (unknown) date) unknown) (unknown) (no (unknown) (unknown) [place] # (Auto) (units ( unknown) date) unknown) (unknown) (no (unknown) (unknown) [place] % (Auto) 9.4 (units (unknown) date) unknown) (unknown) (no (unknown) (unknown) Child[place] % (Auto) (units ( unknown) date) unknown) [...] (unknown) (unknown) Patient: (units (unkno wn) date) [facility] [place] unknown) MR#: [id number] (unknown) (no (unknown) [...] (units (unkn own) date) Hawa Michael unknown) HEAVY DUTY DIESEL MECHANIC-BC (unknown) (no (unknown) (unknown) Psych: Patient (units [...] wn) date) By:<Electronically unknown) [facility]> (unknown) (no (unknown) (unknown) Skin: [...] (unknown) Ur Specific (units (un known) date) [place] 1.020 unknown) (unknown) (no (unknown) (unknown) Ur Specific (units (un known) date) [place] unknown) (unknown) (no (unknown) (unknown) Ur Squamous [...] consult (units (unknown) date) evaluations by unknown) PT/OT/CANCER PROGRAM CONSULTANT. (unknown) (no (unknown) (unknown) wheezes, rhonchi, (units [...] (unknown) date) unknown) (unknown) (no (unknown) (unknown) [id number] (units (unkno wn) date) unknown) (unknown) (no [...] date) Phosphatase unknown) (unknown) (no (unknown) (unknown) [place] given (units (unknown) date) there history of [...] (unknown) (unknown) : 1935 (units (unknown) date) Acct:[id number] unknown) (unknown) (no (unknown) (unknown) Date of Service: (units (unknown) date) 06/16/22 unknown) (unknown) (no (unknown) (unknown) Deep Vein (units (unkn own) date) Thrombosis/Pulmona unknown) ry Embolism Present on Admission: No (unknown) (no (unknown) (unknown) Diagnosed at (units (u nknown) date) [facility] unknown) [facility] Emergency Department. Urine culture (unknown) (no [...] 06/17/22 unknown) @ 00:47 by Hawa Michael [facility]) (unknown) (no (unknown) (unknown) Father (units (unknown) [...] (unknown) date) Dr. Weathers at the unknown) [facility]. He did not (unknown) (no [...] (unknown) date) unknown) (unknown) (no (unknown) (unknown) [facility] (units (unknown) date) [address] unknown) [place] [address] (unknown) (no (unknown) (unknown) Laboratory (units (unk [...] by CASEY Crystal) (unknown) (no (unknown) (unknown) [place] # (Auto) (units ( unknown) date) [address] unknown) (unknown) (no (unknown) (unknown) [place] # (Auto) (units ( unknown) date) unknown) (unknown) (no (unknown) (unknown) Child[place] % (Auto) (units ( unknown) date) 13.3 unknown) (unknown) (no (unknown) (unknown) Childress % (Auto) (units ( unknown) date) unknown) [...] 06/16/22 unknown) @ 21:27 by Hawa Michael [facility]) (unknown) (no (unknown) (unknown) Suspect this (units (u nknown) date) reflected SIRS unknown) rather than sepsis. However, he does have evidence (unknown) (no (unknown) (unknown) Temperature 96.3 (units (unknown) date) F L unknown) (unknown) (no (unknown) (unknown) They did they (units ( unknown) date) might prefer to unknown) proceed with care at the [facility] (unknown) (no (unknown) (unknown) Time [...] (unknown) Ur Specific (units (un known) date) [place] 1.020 unknown) (unknown) (no (unknown) (unknown) Ur Specific (units (un known) date) [place] unknown) (unknown) (no (unknown) (unknown) Ur Squamous [...] ( unknown) date) inflammatory unknown) pulmonary opacities. [id number] (unknown) (no (unknown) (unknown) is status post [...] and follows with (unknown) (no (unknown) (unknown) [id number] (units (unknown) date) n-left pleural unknown) effusions. [...] but no (unknown) (no (unknown) (unknown) the manager photography (units (unknown) date) regularly. unknown) (unknown) (no [...] (unknown) date) unknown) (unknown) (no (unknown) (unknown) [id number] (units (unkno wn) date) unknown) (unknown) (no [...] (unknown) (unknown) : 1935 (units (unknown) date) Acct:[id number] unknown) (unknown) (no (unknown) (unknown) Date of [...] 06/17/22 unknown) @ 00:47 by Hawa Michael [facility]) (unknown) (no (unknown) (unknown) Father (units (unknown) [...] (unknown) date) Dr. Weathers at the unknown) [facility] He did not (unknown) (no (unknown) (unknown) [...] (unknown) date) unknown) (unknown) (no (unknown) (unknown) [facility] (units (unknown) date) [address] [place] [address] unknown) [place] [address] (unknown) (no (unknown) (unknown) Laboratory (units (unk [...] 06/17/22 unknown) @ 00:55 by Hawa Michael [facility]) (unknown) (no (unknown) (unknown) [place] # (Auto) (units ( unknown) date) [address] unknown) (unknown) (no (unknown) (unknown) [place] # (Auto) (units ( unknown) date) unknown) (unknown) (no (unknown) (unknown) Childress % (Auto) (units ( unknown) date) 15.8 H unknown) (unknown) (no (unknown) (unknown) Childress % (Auto) (units ( unknown) date) unknown) [...] 06/16/22 unknown) @ 21:27 by Hawa Michael [facility]) (unknown) (no (unknown) (unknown) Temperature 96.8 (units [...] (units (unknown) date) serial f/u w/a unknown) manager photography at [facility] (unknown) (no (unknown) (unknown) alcohol intake: [...] ( unknown) date) inflammatory unknown) pulmonary opacities.? Bdhn-gd-examwxsf (unknown) (no (unknown) (unknown) liver and spleen [...] and follows with (unknown) (no (unknown) (unknown) robst-dxetzss-snf (units (unknown) date) n-left pleural unknown) effusions.? There is additional note of the (unknown) (no (unknown) (unknown) scalp (units (unkno wn) date) approximately 2 unknown) years ago.? He describes having had a 7 an inch incision.? (unknown) (no (unknown) (unknown) the manager photography (units (unknown) date) regularly. unknown) (unknown) (no [...] (unknown) date) unknown) (unknown) (no (unknown) (unknown) [id number] (units (unkno wn) date) unknown) (unknown) (no [...] excursions symmetric, CTAB (unknown) (no (unknown) (unknown) OPTICAL LATHE OPERATOR disease. (units (u nknown) date) unknown) [...] (unknown) (unknown) : 1935 (units (unknown) date) Acct:[id number] unknown) (unknown) (no (unknown) (unknown) Date of Service: (units (unknown) date) 06/16/22 unknown) (unknown) (no (unknown) (unknown) Deep Vein (units (unkn own) date) Thrombosis/Pulmona unknown) ry Embolism Present on Admission: No (unknown) (no (unknown) (unknown) Diagn[facility] (u nknown) date[facility] Urine culture (unknown) (no [...] (unknown) date) unknown) (unknown) (no (unknown) (unknown) [facility] (units (unknown) date) [address] unknown) [place] [address] (unknown) (no (unknown) (unknown) Laboratory (units (unk [...] 06/17/22 unknown) @ 00:55 by Hawa Michael [facility]) (unknown) (no (unknown) (unknown) Childress # (Auto) (units ( unknown) date) 1100 H unknown) (unknown) (no (unknown) (unknown) Childress # (Auto) (units ( unknown) date) unknown) (unknown) (no (unknown) (unknown) Childress % (Auto) (units ( unknown) date) 15.8 H unknown) (unknown) (no (unknown) (unknown) Childress % (Auto) (units ( unknown) date) unknown) [...] 06/16/22 unknown) @ 21:27 by Hawa Michael [facility]) (unknown) (no (unknown) (unknown) Suspect this (units [...] (units (unknown) date) serial f/u w/a unknown) manager photography (Dr. Reeder) at [facility] (unknown) (no (unknown) (unknown) ago.? He [...] ( unknown) date) inflammatory unknown) pulmonary opacities.? Vtmn-sl-gbcmqsek (unknown) (no (unknown) (unknown) intervention or (units [...] biopsy and potential (unknown) (no (unknown) (unknown) antey-yxibyjc-ioz (units (unknown) date) n-left pleural unknown) effusions.? 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 (units (u nknown) date) unknown) [...] (unknown) (unknown) : 1935 (units (unknown) date) Acct:[id number] unknown) (unknown) (no (unknown) (unknown) Date of Service: (units (unknown) date) 06/16/22 unknown) (unknown) (no (unknown) (unknown) Deep Vein (units (unkn own) date) Thrombosis/Pulmona unknown) ry Embolism Present on Admission: No (unknown) (no (unknown) (unknown) Diagnosed at (units (u nknown) date) [facility] Urine culture (unknown) (no [...] 06/17/22 unknown) @ 00:47 by Hawa Michael [facility]) (unknown) (no (unknown) (unknown) Father (units (unknown) [...] this patient's care (unknown) (no (unknown) (unknown) [facility] (units (unknown) date) [address] unknown) [place] [address] (unknown) (no (unknown) (unknown) Laboratory (units (unk [...] by JOSE Crystal) (unknown) (no (unknown) (unknown) Childress # (Auto) (units ( unknown) date) 1000 H unknown) (unknown) (no (unknown) (unknown) Childress # (Auto) (units ( unknown) date) unknown) (unknown) (no (unknown) (unknown) Childress % (Auto) (units ( unknown) date) 15.4 H unknown) (unknown) (no (unknown) (unknown) Childress % (Auto) (units ( unknown) date) unknown) [...] 06/16/22 unknown) @ 21:27 by Hawa Michael [facility]-) (unknown) (no (unknown) (unknown) Suspect this [...] nown) date) unknown) (unknown) (no (unknown) (unknown) [id number] (units (unkno wn) date) unknown) (unknown) (no (unknown) (unknown) 06/21/22 (units (unkno wn) date) unknown) (unknown) (no (unknown) (unknown) [address] [place] [address] (units (unknown) date) unknown) (unknown) (no (unknown) (unknown) Accession (units (unkn own) date) Number: unknown) [id number] (unknown) (no (unknown) (unknown) Age/Sex: 86 / M (units (unknown) date) Date of Service: unknown) (unknown) (no (unknown) (unknown) [place] (units ( unknown) date) [id number] unknown) (unknown) (no (unknown) (unknown) Approved by: (units (u nknown) date) Johnathan Lane unknown) Azar on 06/21/2022 at 15:07 (unknown) (no (unknown) (unknown) Biopsy site: (units (u nknown) date) Posterior right unknown) lobe of the liver (unknown) (no (unknown) (unknown) COMPARISON: (units (un known) date) [facility], unknown) CT, CT ABDOMEN PELVIS W CON, 06/16/2022, 21:22. (unknown) (no (unknown) (unknown) CT Scan Report (units (unknown) date) unknown) (unknown) (no (unknown) (unknown) CT guidance, a (units (unknown) date) core biopsy unknown) trocar and needle set was advanced to the biopsy (unknown) (no (unknown) (unknown) Complications: (units (unknown) date) None. unknown) (unknown) (no (unknown) (unknown) : 1935 (units (unknown) date) Acct:[id number] unknown) (unknown) (no (unknown) (unknown) Dictated by: [...] history of melanoma (unknown) (no (unknown) (unknown) [facility] (units (unknown) date) unknown) (unknown) (no [...] brought to the CT unknown) suite and lead athlete spiral CT imaging was (unknown) (no (unknown) [...] Dr. Arianna Reeder, (unknown) (no (unknown) (unknown) [id number] (units (unkno wn) date) unknown) (unknown) (no [...] (unknown) (unknown) : 1935 (units (unknown) date) Acct:[id number] unknown) (unknown) (no (unknown) (unknown) Date Patient (units (u nknown) date) Seen: 06/19/22 unknown) (unknown) (no (unknown) (unknown) Date of Service: (units (unknown) date) 06/16/22 unknown) (unknown) (no (unknown) (unknown) Deep Vein (units (unkn own) date) Thrombosis/Pulmona unknown) ry Embolism Present on Admission: No (unknown) (no (unknown) (unknown) Diagnosed at (units (u nknown) date) [facility] Urine culture (unknown) (no [...] 06/17/22 unknown) @ 00:47 by Hawa Michael [facility]) (unknown) (no (unknown) (unknown) Father (units (unknown) [...] (unknown) date) unknown) (unknown) (no (unknown) (unknown) [facility] (units (unknown) date) [address] unknown) [place] [address] (unknown) (no (unknown) (unknown) Laboratory (units (unk [...] 06/17/22 unknown) @ 00:55 by Hawa Michael [facility]) (unknown) (no (unknown) (unknown) Childress # (Auto) (units ( unknown) date) 1000 H unknown) (unknown) (no (unknown) (unknown) Childress # (Auto) (units ( unknown) date) unknown) (unknown) (no (unknown) (unknown) Childress % (Auto) (units ( unknown) date) 15.4 H unknown) (unknown) (no (unknown) (unknown) Childress % (Auto) (units ( unknown) date) unknown) [...] 06/16/22 unknown) @ 21:27 by Hawa Michael [facility]) (unknown) (no (unknown) (unknown) Temperature 97.0 (units [...] unknown) date) unknown) (unknown) (no (unknown) (unknown) [id number] (units (unkno wn) date) unknown) (unknown) (no [...] date) unknown) (unknown) (no (unknown) (unknown) [address] [place] [address] (units (unknown) date) unknown) (unknown) (no (unknown) [...] (unknown) (unknown) Accession Number: (units (unknown) date) [id number] ?? unknown) (unknown) (no (unknown) (unknown) Accession Number: (units (unknown) date) [id number] ?? unknown) (unknown) (no (unknown) (unknown) Accession Number: (units (unknown) date) [id number] ?? unknown) (unknown) (no (unknown) (unknown) Acct:[id number] (units (unknown) date) unknown) (unknown) (no (unknown) [...] PO DAILY DAVID (unknown) (no (unknown) (unknown) [place], [place] (units ( unknown) date) [address] unknown) (unknown) (no (unknown) (unknown) Apix[place] (units [...] (unknown) (unknown) COMPARISON:? (units (u nknown) date) [facility], unknown) CR, XR CHEST 1V, 06/16/2022, [...] (unknown) (unknown) : 1935 (units (unknown) date) Acct:[id number] unknown) (unknown) (no (unknown) (unknown) : 1935 (units (unknown) date) unknown) (unknown) (no (unknown) (unknown) Data collected (units (unknown) date) from: Patient and unknown) and patient's marketing account executive as well as ER (unknown) (no (unknown) [...] date) Signs: unknown) (unknown) (no (unknown) (unknown) [facility] (units (unknown) date) [address] unknown) [place] [address] (unknown) (no (unknown) (unknown) [facility] (units (unknown) date) unknown) (unknown) (no [...] (units (unkn own) date) pleura:? Bilateral unknown) mmau-px-atjvloaq pleural effusions, slightly (unknown) (no (unknown) (unknown) Lungs and pleura:? (units (unknown) date) Low lung volumes.? unknown) Possible mild right and retrocardiac basal (unknown) (no (unknown) (unknown) Lymph # (Auto) (units (unknown) date) (0052-3542) /uL unknown) (unknown) (no (unknown) (unknown) Lymph # (Auto) (units (unknown) date) 400 L (1156-0235) unknown) /uL (unknown) (no (unknown) (unknown) Lymph [...] date) unknown) (unknown) (no (unknown) (unknown) MR#: [id number] (units (unknown) date) unknown) (unknown) (no (unknown) [...] 06/17/22 unknown) @ 00:55 by Hawa Michael [facility]) (unknown) (no (unknown) (unknown) Medical decision (units (unknown) date) making narrative: unknown) (unknown) (no (unknown) (unknown) Medical records (units (unknown) date) reviewed: ER unknown) visits from a few days ago (unknown) (no (unknown) (unknown) Medication (units (unk nown) date) Instructions unknown) Recorded Confirmed (unknown) (no (unknown) (unknown) Sqnw-pt-ljijsxxg, (units (unknown) date) unknown) (unknown) (no (unknown) (unknown) Mode of arrival: (units (unknown) date) Wheelchair unknown) (unknown) (no (unknown) (unknown) Childress # (Auto) (units ( unknown) date) (0-900) /uL unknown) (unknown) (no (unknown) (unknown) Childress # (Auto) 900 (units (unknown) date) (0-900) /uL unknown) (unknown) (no (unknown) (unknown) Childress % (Auto) (units ( unknown) date) (3-14) % unknown) (unknown) (no (unknown) (unknown) Childress % (Auto) 9.4 (units (unknown) date) (3-14) [...] Neut # (Auto) (units ( unknown) date) (9989-6483) /uL unknown) (unknown) (no (unknown) (unknown) Neut # (Auto) (units ( unknown) date) 8200 H (3803-3042) unknown) /uL (unknown) (no (unknown) (unknown) Neut [...] (4.5-11.0) X103/uL unknown) (unknown) (no (unknown) (unknown) [facility] (units (unknown) date) ER for evaluation unknown) [...] hands with strong (units (unknown) date) equal receivables specialist unknown) 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 (unknown) (no [...] with (units (unk nown) date) patient's unknown) marketing account executive and he was concern for patient's welfare [...] a follow-up ultrasound-guided (unknown) (no (unknown) (unknown) [id number] (units (unkno wn) date) unknown) (unknown) (no (unknown) (unknown) 06/20/22 (units (unkno wn) date) unknown) (unknown) (no (unknown) (unknown) [address] [facility] [facility] [address] (units (unknown) date) unknown) (unknown) (no (unknown) (unknown) 1st rib, (units (unkno wn) date) unknown) (unknown) (no (unknown) (unknown) Accession (units (unkn own) date) Number: unknown) [id number] (unknown) (no (unknown) (unknown) Additional (units (unk nown) date) findings: unknown) (unknown) (no (unknown) (unknown) After the (units (unkn own) date) administration of unknown) intravenous contrast, 3.0 mm axial sections (unknown) (no (unknown) (unknown) Age/Sex: 86 / M (units (unknown) date) Date of Service: unknown) (unknown) (no (unknown) (unknown) [place] (units ( unknown) date) [address] unknown) (unknown) (no (unknown) (unknown) Approved by: [...] (unknown) (unknown) COMPARISON: (units (un known) date) [facility], unknown) CT, CT CHEST W [facility], 06/16/2022, 14:03. [place] (unknown) (no (unknown) (unknown) CT HEAD/BRAIN WO (units (unknown) date) CON, 06/16/2022, unknown) 14:03. (unknown) (no (unknown) (unknown) CT Scan Report (units (unknown) date) unknown) (unknown) (no (unknown) (unknown) : 1935 (units (unknown) date) Acct:[id number] unknown) (unknown) (no (unknown) (unknown) Dictated by: [...] date) Excellent. unknown) (unknown) (no (unknown) (unknown) [facility] (units (unknown) date) unknown) (unknown) (no [...] (unknown) date) unknown) (unknown) (no (unknown) (unknown) [id number] (units (unkno wn) date) unknown) (unknown) (no [...] (unknown) (unknown) : 1935 (units (unknown) date) Acct:[id number] unknown) (unknown) (no (unknown) (unknown) Date Patient [...] (Reviewed 06/17/22 unknown) @ 00:47 [facility] (unknown) (no (unknown) (unknown) Father (units [...] this patient's care (unknown) (no (unknown) (unknown) [facility] (units (unknown) date) [address] unknown) [place] [address] (unknown) (no (unknown) (unknown) Laboratory (units (unk [...] by JOSE Crystal) (unknown) (no (unknown) (unknown) Childress # (Auto) (units ( unknown) date) 1000 H unknown) (unknown) (no (unknown) (unknown) Childress % (Auto) (units ( unknown) date) 14.7 [...] 06/16/22 unknown) @ 21:27 by Hawa Michael [facility]) (unknown) (no (unknown) (unknown) Temperature 97.1 (units [...] Reeder and updated (unknown) (no (unknown) (unknown) [id number] (units (unkno wn) date) unknown) (unknown) (no [...] (unknown) (unknown) : 1935 (units (unknown) date) Acct:[id number] unknown) (unknown) (no (unknown) (unknown) Date Patient (units (u nknown) date) Seen: 06/20/22 unknown) (unknown) (no (unknown) (unknown) Date of Service: (units (unknown) date) 06/16/22 unknown) (unknown) (no (unknown) (unknown) Deep Vein (units (unkn own) date) Thrombosis/Pulmona unknown) ry Embolism Present on Admission: No (unknown) (no (unknown) (unknown) Diagnosed at (units (u nknown) date) [facility] unknown) [facility] Emergency Department.? Urine culture (unknown) (no [...] 06/17/22 unknown) @ 00:47 by Hawa Michael [facility]) (unknown) (no (unknown) (unknown) Father (units (unknown) [...] (unknown) date) unknown) (unknown) (no (unknown) (unknown) [facility] (units (unknown) date) [address] unknown) [place] [address] (unknown) (no (unknown) (unknown) Laboratory (units (unk [...] by JOSE Crystal) (unknown) (no (unknown) (unknown) Childress # (Auto) (units ( unknown) date) 1000 H unknown) (unknown) (no (unknown) (unknown) Childress % (Auto) (units ( unknown) date) 14.7 [...] 06/16/22 unknown) @ 21:27 by Hawa Michael [facility]) (unknown) (no (unknown) (unknown) Temperature 97.1 (units [...] over the last few (units (unknown) date) months.?Provisioning Analyst unknown) consulted. (unknown) (no (unknown) (unknown) today; [...] (unknown) (no date) (unknown) (unknown) Comment: (units 23923 -1 unknown) (unknown) (no date) (unknown) (unknown) Comment: (units (unkn own) unknown) Result panel 268 (unknown) (no (unknown) (unknown) (no value) (units (unk nown) date) unknown) (unknown) (no (unknown) (unknown) (past 8 hours): (units (unknown) date) unknown) (unknown) (no (unknown) (unknown) [id number] (units (unkno wn) date) unknown) (unknown) (no [...] (unknown) (unknown) : 1935 (units (unknown) date) Acct:[id number] unknown) (unknown) (no (unknown) (unknown) Date Patient [...] (Reviewed 06/17/22 unknown) @ 00:47 by CASEY Crystla) (unknown) (no (unknown) (unknown) Father (units (unknown) [...] (unknown) date) unknown) (unknown) (no (unknown) (unknown) [facility] (units (unknown) date) [address] unknown) [place] [address] (unknown) (no (unknown) (unknown) Labs (units (unkno [...] Reeder and updated (unknown) (no (unknown) (unknown) [id number] (units (unkno wn) date) unknown) (unknown) (no [...] (unknown) (unknown) : 1935 (units (unknown) date) Acct:[id number] unknown) (unknown) (no (unknown) (unknown) Date Patient (units (u nknown) date) Seen: 06/20/22 unknown) (unknown) (no (unknown) (unknown) Date of Service: (units (unknown) date) 06/16/22 unknown) (unknown) (no (unknown) (unknown) Deep Vein (units (unkn own) date) Thrombosis/Pulmona unknown) ry Embolism Present on Admission: No (unknown) (no (unknown) (unknown) Diagnosed at (units (u nknown) date) [facility] Urine culture (unknown) (no [...] (unknown) date) unknown) (unknown) (no (unknown) (unknown) [facility] (units (unknown) date) [address] unknown) [place] [address] (unknown) (no (unknown) (unknown) Labs (units (unkno [...] 06/16/22 unknown) @ 21:27 by Hawa Michael [facility]-) (unknown) (no (unknown) (unknown) Temperature 97.1 [...] over the last few (units (unknown) date) months.?Provisioning Analyst unknown) consulted. (unknown) (no (unknown) (unknown) today. [...] in 1 (unknown) (no (unknown) (unknown) [address] (units (unknown) date) unknown) (unknown) (no (unknown) (unknown) [address] [place] [address] (units (unknown) date) [address], unknown) [place], [place] [id number] (unknown) (no (unknown) (unknown) [id number] (units (unkno wn) date) unknown) (unknown) (no (unknown) (unknown) [place], [place] (units ( unknown) date) [address] unknown) (unknown) (no (unknown) (unknown) As part [...] description: . unknown) (unknown) (no (unknown) (unknown) [facility] (units (unknown) date) unknown) (unknown) (no (unknown) (unknown) [facility] Accession (units ( unknown) date) Number: unknown) [id number] (unknown) (no (unknown) (unknown) LIVER TISSUE: (units ( unknown) date) unknown) (unknown) (no (unknown) (unknown) [facility] (units (unknown) date) [place] [facility] unknown) (unknown) (no (unknown) (unknown) Liver, Needle (units ( unknown) date) Core Biopsies: unknown) (unknown) (no (unknown) (unknown) MD Donovan Mckenzie (units (unknown) date) Phone: unknown) [phone] (unknown) (no (unknown) (unknown) (units (unknown) date) Dictating Dr: unknown) Tommy Molina MD (unknown) (no (unknown) (unknown) MRV 06/23/2022 (units (unknown) date) [address] unknown) (unknown) (no (unknown) (unknown) Material (units (unkno wn) date) submitted: . unknown) (unknown) (no (unknown) (unknown) Tommy Szymanski (units (unkn own) date) MD Jesse, PhD, unknown) Pathologist (unknown) (no (unknown) (unknown) NPI- [id number] (units (unknown) date) unknown) (unknown) (no (unknown) [...] (unknown) date) unknown) (unknown) (no (unknown) (unknown) [id number] (units (unkno wn) date) unknown) (unknown) (no [...] unknown) (unknown) (no (unknown) (unknown) Consult to CANCER PROGRAM CONSULTANT - (units (unknown) date) Log Buncher unknown) Routine (unknown) (no (unknown) (unknown) Consult [...] (unknown) (unknown) : 1935 (units (unknown) date) Acct:[id number] unknown) (unknown) (no (unknown) (unknown) Date Patient [...] 06/17/22 unknown) @ 00:47 by Hawa Michael [facility]) (unknown) (no (unknown) (unknown) Father (units (unknown) [...] twice a day (unknown) (no (unknown) (unknown) [facility] (units (unknown) date) [address] unknown) [place] [address] (unknown) (no (unknown) (unknown) Labs (units (unkno wn) date) unknown) (unknown) (no (unknown) (unknown) Lucien Lan (units (unknown) date) MD Yudi [Primary unknown) Care Provider] (unknown) (no (unknown) (unknown) CANCER PROGRAM CONSULTANT Consult (units (un known) date) needed for:: unknown) [facility] Need (unknown) (no (unknown) (unknown) Medical History (units (unknown) date) (Updated 06/17/22 unknown) @ 00:55 [facility] (unknown) (no (unknown) (unknown) Mother (units [...] (units (unknown) date) Set up HH unknown) RN/PT/OT/ELIGIBILITY TECHNICIAN for discharge home (unknown) (no (unknown) [...] 06/16/22 unknown) @ 21:27 by Hawa Michael [facility]) (unknown) (no (unknown) (unknown) Upon admit BP [...] Reeder and updated (unknown) (no (unknown) (unknown) [id number] (units (unkno wn) date) unknown) (unknown) (no [...] unknown) (unknown) (no (unknown) (unknown) Consult to CANCER PROGRAM CONSULTANT - (units (unknown) date) Log Buncher unknown) Routine (unknown) (no (unknown) (unknown) Consult [...] (unknown) (unknown) : 1935 (units (unknown) date) Acct:[id number] unknown) (unknown) (no (unknown) (unknown) Date Patient [...] (unknown) Diagnosed at (units (u nknown) date) [facility] unknown) [facility] Emergency Department.? Urine culture (unknown) (no [...] 06/17/22 unknown) @ 00:47 by Hawa Michael [facility]) (unknown) (no (unknown) (unknown) Father (units (unknown) [...] are negative to (unknown) (no (unknown) (unknown) [facility] (units (unknown) date) [address] [place] [address] unknown) [place] [address] (unknown) (no (unknown) (unknown) Labs (units (unkno wn) date) unknown) (unknown) (no (unknown) (unknown) Lucien Lan (units (unknown) date) MD Yudi [Primary unknown) Care Provider] (unknown) (no (unknown) (unknown) MNA 10 (at risk (units (unknown) date) for malnutrition), unknown) diet recall suggesting inadequate (unknown) (no (unknown) (unknown) CANCER PROGRAM CONSULTANT Consult (units (un known) date) needed for:: [...] (units (unknown) date) Set up HH unknown) RN/PT/OT/ELIGIBILITY TECHNICIAN for discharge home (unknown) (no (unknown) [...] over the last few (units (unknown) date) months.?Provisioning Analyst unknown) consulted. (unknown) (no (unknown) (unknown) pacemaker [...] (unknown) date) unknown) (unknown) (no (unknown) (unknown) [id number] (units (unkno wn) date) unknown) (unknown) (no [...] unknown) (unknown) (no (unknown) (unknown) Consult to CANCER PROGRAM CONSULTANT - (units (unknown) date) Log Buncher unknown) Routine (unknown) (no (unknown) (unknown) Consult [...] (unknown) (unknown) : 1935 (units (unknown) date) Acct:[id number] unknown) (unknown) (no (unknown) (unknown) Date Patient [...] (Reviewed 06/17/22 unknown) @ 00:47 [facility] (unknown) (no (unknown) (unknown) Father (units [...] twice a day (unknown) (no (unknown) (unknown) [facility] (units (unknown) date) [address] unknown) [place] [address] (unknown) (no (unknown) (unknown) Labs (units (unkno wn) date) unknown) (unknown) (no (unknown) (unknown) Lucien Lan (units (unknown) date) MD Yudi [Primary unknown) Care Provider] (unknown) (no (unknown) (unknown) MNA 10 (at risk (units (unknown) date) for malnutrition), unknown) diet recall suggesting inadequate (unknown) (no (unknown) (unknown) CANCER PROGRAM CONSULTANT Consult (units (un known) date) needed for:: unknown) [facility] Need (unknown) (no (unknown) (unknown) Medical History (units (unknown) date) (Updated 06/17/22 unknown) @ 00:55 by Hawa Michael [facility]) (unknown) (no (unknown) (unknown) Mother (units (unknown) [...] (units (unknown) date) Set up HH unknown) RN/PT/OT/ELIGIBILITY TECHNICIAN for discharge home (unknown) (no (unknown) [...] 06/16/22 unknown) @ 21:27 by Hawa Michael [facility]) (unknown) (no (unknown) (unknown) This is an [...] (unknown) date) unknown) (unknown) (no (unknown) (unknown) [id number] (units (unkno wn) date) unknown) (unknown) (no [...] unknown) (unknown) (no (unknown) (unknown) Consult to CANCER PROGRAM CONSULTANT - (units (unknown) date) Log Buncher unknown) Routine (unknown) (no (unknown) (unknown) Consult [...] (unknown) (unknown) : 1935 (units (unknown) date) Acct:[id number] unknown) (unknown) (no (unknown) (unknown) Date Patient [...] (Reviewed 06/17/22 unknown) @ 00:47 [facility] (unknown) (no (unknown) (unknown) Father (units [...] twice a day (unknown) (no (unknown) (unknown) [facility] (units (unknown) date) [address] unknown) [place] [address] (unknown) (no (unknown) (unknown) Labs (units (unkno wn) date) unknown) (unknown) (no (unknown) (unknown) Lucien Lan (units (unknown) date) MD Yudi [Primary unknown) Care Provider] (unknown) (no (unknown) (unknown) MNA 10 (at risk (units (unknown) date) for malnutrition), unknown) diet recall suggesting inadequate (unknown) (no (unknown) (unknown) CANCER PROGRAM CONSULTANT Consult (units (un known) date) needed for:: unknown) [facility] Need (unknown) (no (unknown) (unknown) Medical History (units (unknown) date) (Updated 06/17/22 unknown) @ 00:55 by Hawa Michael [facility]) (unknown) (no (unknown) (unknown) Mother (units (unknown) [...] (units (unknown) date) Set up HH unknown) RN/PT/OT/ELIGIBILITY TECHNICIAN for discharge home (unknown) (no (unknown) [...] 06/16/22 unknown) @ 21:27 by Hawa Michael [facility]) (unknown) (no (unknown) (unknown) This is an [...] facility 2022-06-16 00:00 Never smoked tobacco (finding) [facility] 2022-06-16 00:00 Smoker (finding) [facility] Vital Signs date measurement value units [...]
[2022-08-24 18:54] LABS: ALBUMIN 2.5 g/dL (3.2-5.5); ALBUMIN/GLOBULIN RATIO 0.7 (1.0-2.2); BILIRUBIN,TOTAL 0.8 mg/dL (0.2-1.0); CALCIUM 8.6 mg/dL (8.5-10.3); CREATININE 1.2 mg/dL (0.6-1.2); POTASSIUM 4.3 mmol/L (3.5-5.0); TOTAL PROTEIN 6.3 g/dL (6.7-8.2)
--- NOTE | 2022-08-24 19:34 | ED Physician Documentation ---
PD HPI FEVER - Stated complaint Stated Complaint: FEVER, PX, SHAKING - Chief complaint Chief Complaint: Fever - Additional information Additional information: HPI is from patient's who is in the ED at the patient's bedside. Patient is very hard of hearing and thus HPI/ROS is challenging to obtain from the patient. 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 He also has metastatic melanoma with liver metastases. He currently is undergoing oral immunotherapy.In June 2022, the patient had 2 inpatient stays at [facility] for fevers associated with E. coli bacteremia. In reviewing notes from these inpatient stays, it is not clear as to the source of the bacteremia; I note that his urine cultures on these visits were negative despite E. coli positive blood cultures. [facility] today (this morning). He presented for altered mental status associated with fever. He had a mildly elevated white blood cell count on the visit this morning but a normal lactate and otherwise unremarkable blood test. His urinalysis was positive for nitrites, moderate bacteria but only 4-5 WBC/hpf on microscopy. In reviewing the ED MDs note, although the patient had arrived with a Brice catheter placed, it was removed prior to discharge home at the patient's 's insistence.The ED MD note also notes that patient's mental status significantly improved as his fever resolved. He was given 2 g of Rocephin intravenously and a prescription for Bactrim was provided. The ED MD note indicates that the testing performed did not indicate need for admission. Patient was called back and instructed to return to the emergency department due to positive blood culture, which is already identified as e. coli (sensitivities pending). Review of Systems Constitutional: reports: Fever, Chills Respiratory: denies: Dyspnea, Cough GI: denies: Abdominal Pain PD PAST MEDICAL HISTORY - Past Medical History Cardiovascular: Hypertension, High cholesterol, Pulmonary embolism, Atrial fibrillation, Other Respiratory: Asthma Neuro: Dementia Endocrine/Autoimmune: None GI: GERD (w a UMER in 2002), Diverticulitis : Benign prostate hypertrophy (w LUTs, s/p TURP then dilation of stricture then TUR of stricture), Incontinence, Nocturia, Kidney stones, Other (erecctile dysfunction, balanitis) Psych: None Musculoskeletal: Osteoarthritis, Chronic back pain Derm: None, Other - Past Surgical History Past Surgical History: Yes General: Appendectomy, Colonoscopy, EGD, Other Cardiovascular: Pacemaker HEENT: Cataracts Derm: Skin cancer surgery - Present Medications Home Medications: Ambulatory Orders Medication Instructions Recorded Confirmed Apixaban [Eliquis] 5 mg PO BID 07/08/22 08/11/22 Gabapentin [Neurontin] 300 mg PO BID 07/08/22 08/11/22 Binimetinib [Mektovi] 30 mg PO BID 07/09/22 08/11/22 Encorafenib [Braftovi] 300 mg PO DAILY 07/09/22 08/11/22 Fluticasone 44 Mcg [Flovent] 2 puffs INH BID 07/16/22 08/11/22 Acetaminophen [Tylenol] 500 mg PO Q4HR PRN tab 07/28/22 08/11/22 Furosemide [Lasix] 20 mg PO MOWEFR #15 tab 07/28/22 08/11/22 Multivitamin W/Minerals [Theragran 1 tab PO DAILYWM #30 tab 07/28/22 08/11/22 M] Nystatin [Nystop] 1 applic TOP BID #15 gm 07/28/22 08/11/22 Potassium Chloride [Klor-Con] 20 meq PO MOWEFR #15 packet 07/28/22 08/11/22 Tamsulosin [Flomax] 0.4 mg PO DAILY #30 cap 07/28/22 08/11/22 oxyCODONE [Roxicodone] 2.5 - 5 mg PO Q8H PRN #10 tablet 08/11/22 MDD 6 Sulfamethox/Trimeth 800/160 1 each PO BID #14 tablet 08/24/22 [Bactrim Ds 800/160] - Allergies Allergies/Adverse Reactions: Allergies Allergy/AdvReac Type Severity Reaction Status Date / Time pneumococcal vaccine Allergy Hives Verified 08/24/22 18:26 [From Prevestevan 13 (PF)] - Social History Does the pt smoke?: No Smoking Status: Never smoker Does the pt drink ETOH?: Yes Does the pt have substance abuse?: No - Immunizations Immunizations are current?: Yes - POLST Patient has POLST: No POLST Status: DNR (per his who has advanced directives at home) PD ED PE NORMAL - Vitals Vital signs reviewed: Yes - General General: No acute distress, Well developed/nourished, Other (awake, alert; he is very [place], difficult to ascertain whether he understands questions I am asking, and answers are mostly tangential and/or unrelated to questions) - HEENT HEENT: Moist mucous membranes - Neck Neck: Supple, no meningeal sign - Cardiac Cardiac: RRR, No murmur - Respiratory Respiratory: No respiratory distress, Clear bilaterally - Abdomen Abdomen: Soft, Non tender - Extremities Extremities: No edema Results - Vitals Vitals: Vital Signs - 24 hr 08/25/22 08/25/22 08/25/22 10:00 11:29 14:00 Temperature 36.8 C Heart Rate 78 79 75 Respiratory 16 18 18 Rate Blood Pressure 113/57 L 122/58 L 112/73 O2 Saturation 98 95 97 08/25/22 08/25/22 08/25/22 17:55 20:09 21:34 Temperature 37.2 C Heart Rate 85 84 80 Respiratory 18 18 18 Rate Blood Pressure 108/80 135/85 H 127/69 O2 Saturation 100 100 100 08/25/22 08/25/22 08/25/22 21:38 21:40 22:40 Temperature 37.6 C 37.6 C Heart Rate 81 84 Respiratory 18 18 Rate Blood Pressure 127/69 151/64 H O2 Saturation 100 100 Oxygen O2 Source Room air - EKG (time done) No standard instances EKG releavant findings:: EKG personally interpreted by author of this note. Relevant findings are: Rate: Rate (enter#) (80) Rhythm: NSR [place]: LAD Ischemia: Normal ST segments, Q waves (II, III, aVF) - Labs Labs: Microbiology 08/24/22 18:51 Urine Culture - Final Urine,Catheterized 08/24/22 20:31 Blood Culture - Preliminary Blood - Right Hand NO GROWTH AFTER 1 DAY 08/24/22 20:29 Blood Culture - Preliminary Blood - Right Arm NO GROWTH AFTER 1 DAY Laboratory Tests 08/24/22 08/24/22 08/24/22 18:35 18:35 18:35 WBC 16.9 H RBC 3.42 L Hgb 9.8 L Hct 31.5 L MCV 92.1 MCH 28.7 MCHC 31.1 L RDW 15.9 H Plt Count 342 MPV 8.3 Neut # (Auto) 14.9 H Lymph # (Auto) 0.9 L [place] # (Auto) 0.9 Eos # (Auto) 0.1 Baso # (Auto) 0.1 Absolute Nucleated RBC 0.00 Nucleated RBC % 0.0 Sodium 137 Potassium 4.3 Chloride 102 Carbon Dioxide 20 L Anion Gap 15.0 H BUN 27 H Creatinine 1.2 Estimated GFR (MDRD) 57 L Glucose 127 H Lactic Acid 4.2 H* Calcium 8.6 Total Bilirubin 0.8 AST 31 ALT 25 Alkaline Phosphatase 291 H Total Protein 6.3 L Albumin 2.5 L Globulin 3.8 Albumin/Globulin Ratio 0.7 L Lipase 73 H Urine Color Urine Clarity Urine pH Ur Specific [place] Urine Protein Urine Glucose (UA) Urine Ketones Urine Occult Blood Urine Nitrite Urine Bilirubin Urine Urobilinogen Ur Leukocyte Esterase Urine RBC Urine WBC Ur Squamous Epith Cells Urine Bacteria Urine Casts Ur Microscopic Review Urine Culture Comments 08/24/22 08/25/22 08/25/22 18:51 05:28 05:28 WBC 11.3 H RBC 3.42 L Hgb 9.7 L Hct 31.9 L MCV 93.3 MCH 28.4 MCHC 30.4 L RDW 16.0 H Plt Count 296 MPV 8.6 Neut # (Auto) 9.7 H Lymph # (Auto) 0.6 L [place] # (Auto) 0.8 Eos # (Auto) 0.1 Baso # (Auto) 0.1 Absolute Nucleated RBC 0.00 Nucleated RBC % 0.0 Sodium 139 Potassium 3.9 Chloride 105 Carbon Dioxide 25 Anion Gap 9.0 BUN 27 H Creatinine 1.0 Estimated GFR (MDRD) 70 L Glucose 98 Lactic Acid Calcium 8.6 Total Bilirubin 0.7 AST 25 ALT 23 Alkaline Phosphatase 265 H Total Protein 6.2 L Albumin 2.3 L Globulin 3.9 Albumin/Globulin Ratio 0.6 L Lipase 51 Urine Color DARK YELLOW Urine Clarity HAZY Urine pH 5.5 Ur Specific [place] >=1.030 H Urine Protein 30 H Urine Glucose (UA) NEGATIVE Urine Ketones NEGATIVE Urine Occult Blood TRACE-INTA Urine Nitrite POSITIVE H Urine Bilirubin NEGATIVE Urine Urobilinogen 0.2 (NORMAL) Ur Leukocyte Esterase NEGATIVE Urine RBC 6-10 H Urine WBC 6-10 H Ur Squamous Epith Cells RARE Squamous Urine Bacteria Rare Urine Casts 0-2 Granular Casts Ur Microscopic Review INDICATED Urine Culture Comments INDICATED 08/25/22 05:28 WBC RBC Hgb Hct MCV MCH MCHC RDW Plt Count MPV Neut # (Auto) Lymph # (Auto) [place] # (Auto) Eos # (Auto) Baso # (Auto) Absolute Nucleated RBC Nucleated RBC % Sodium Potassium Chloride Carbon Dioxide Anion Gap BUN Creatinine Estimated GFR (MDRD) Glucose Lactic Acid 1.0 Calcium Total Bilirubin AST ALT Alkaline Phosphatase Total Protein Albumin Globulin Albumin/Globulin Ratio Lipase Urine Color Urine Clarity Urine pH Ur Specific [place] Urine Protein Urine Glucose (UA) Urine Ketones Urine Occult Blood Urine Nitrite Urine Bilirubin Urine Urobilinogen Ur Leukocyte Esterase Urine RBC Urine WBC Ur Squamous Epith Cells Urine Bacteria Urine Casts Ur Microscopic Review Urine Culture Comments PD Medical Decision Making - ED course Complexity details: reviewed old records, reviewed results, re-evaluated patient, considered differential, d/w family ED course: Chest x-ray is not performed on katarzyna's visit, as he had a chest x-ray earlier today when he was in the emergency department and his chest x-ray was unremarkable; furthermore, the patient has no respiratory complaint nor findings on the exam to suggest an acute pulmonary process. Patient had respiratory PCR panel performed earlier today and this was negative for the viruses tested. On katarzyna's visit, his lactate is noted to be 4.2 (this was 1.1 earlier in the day on the previous ED visit). His white blood cell count is 16.9, increased from 13.9 earlier today. He is febrile on presentation with temp of 38.9. 2 g of Rocephin intravenously had already been ordered by the off going ED physician (Dr. Escoto, who also evaluated this patient when he presented earlier in the day). In addition to this, I ordered, and patient is given, IV vancomycin as well as IV metronidazole. Blood cultures are redrawn and sent to the lab for analysis. Patient defervesced early in ED stay. [facility] hospitalist recommends transfer to another facility for higher level of care specifically facility that has urology as well as infectious disease specialists available. The concern is his recurrent E. coli bacteremia/sepsis without obvious source. On katarzyna's presentation, a Brice catheter is placed (having been removed prior to discharge earlier today). His urinalysis is again positive for nitrites, but only rare bacteria on microscopy with 6-10 red blood cells per high-powered field and 6-10 white blood cells per high-power field. There are no beds available at multiple facilities contacted (.., [facility], [facility], [facility], [facility], [facility]). Eventually, I was put in contact with the hospitalist for [facility], as a bed is available at their facility. [facility] hospitalist does not see the need for transfer to their facility, but would be happy to discuss this with the hospitalist when they are back on duty in the morning. Thus, the patient is held in the emergency department overnight. At the end of my shift, I did update [facility] hospitalist (Dr. Simon) and she plans to reach out to the [facility] hospitalist to discuss possible transfer of the patient. The care of the patient is signed out to the oncoming ED physician (Dr. Clemente) pending disposition - Sepsis Event Sepsis Onset Date: 08/24/22 Sepsis Onset Time: 20:00 Current Stage of Sepsis: Sepsis Initial Hypotension: Not hypotensive Mental/Cognitive Status: Alert/Oriented X3 Reason for not giving 30ml/kg crystalloid fluids: Not in septic shock Capillary refill: Less than 2 seconds Peripheral Pulse Strength: 3+ Normal Peripheral Pulse Location: Radial Departure - Departure Disposition: 02 Transfer Acute Care Hosp Clinical Impression: E coli bacteremia Sepsis Qualifiers: Sepsis type: Escherichia coli Sepsis acute organ dysfunction status: without ac chet organ dysfunction Qualified Code(s): A41.51 - Sepsis due to Escherichia coli [E. coli] Condition: Serious Discharge Date/Time: 08/25/22 23:20
[2022-08-24] MEDS ORDERED: metroNIDAZOLE 500 MG/100 ML 500 MG/100 ML BAG IV STA (20:08)
[2022-08-24] MEDS ORDERED: CEFEPIME 2 GM in SODIUM CHLORIDE 0.9% MINIBAG 100 ML IV STA (20:08)
[2022-08-24] MEDS ORDERED: VANCOMYCIN INJ 1.25 GM in SODIUM CHLORIDE 0.9% 250 ML IV STA ×2 (20:08→21:22)
[2022-08-24 20:12] LABS: BILIRUBIN,URINE NEGATIVE (NEGATIVE); GLUCOSE, URINE (UA) NEGATIVE (NEGATIVE); KETONES,URINE (UA) NEGATIVE (NEGATIVE); LEUKOCYTE ESTERASE, URINE NEGATIVE (NEGATIVE); NITRITE,URINE POSITIVE (NEGATIVE); OCCULT BLOOD,URINE TRACE-INTA (NEGATIVE); PH,URINE 5.5 PH (5.0-7.5); PROTEIN,URINE 30 mg/dL (NEGATIVE); UROBILINOGEN,URINE 0.2 (NORMAL) E.U./dL (NORMAL)
[2022-08-24] MEDS ORDERED: VANCOMYCIN INJ 1.5 GM in SODIUM CHLORIDE 0.9% 500 ML IV STA (20:16)
[2022-08-24 20:29] LABS: CLARITY,URINE HAZY (CLEAR)
[2022-08-24 20:31] LABS: BACTERIA,URINE Rare /HPF (None Seen); SQUAMOUS EPITHELIAL CELL,UR RARE Squamous (<= Few)
[2022-08-24] MEDS ORDERED: VANCOMYCIN INJ 1.25 GM in SODIUM CHLORIDE 0.9% 500 ML IV STA (21:48)
[2022-08-24] MEDS ORDERED: VANCOMYCIN 1 GM VIAL ONE (21:57)
[2022-08-25] MEDS ORDERED: SODIUM CHLORIDE 0.9% 500 ML IV STA (05:10)
[2022-08-25 05:32] LABS: BASOPHILS # (AUTO) 0.1 10^3/uL (0.0-0.1); BASOPHILS % (AUTO) 0.9 %; EOSINOPHILS # (AUTO) 0.1 10^3/uL (0.0-0.7); EOSINOPHILS % (AUTO) 1.2 %; HCT - HEMATOCRIT 31.9 % (42.0-52.0); HGB - HEMOGLOBIN 9.7 g/dL (14.0-18.0); LYMPHOCYTES # (AUTO) 0.6 10^3/uL (1.5-3.5); MEAN CORPUSCULAR HEMOGLOBIN 28.4 pg (27.0-31.0); MEAN CORPUSCULAR HGB CONC 30.4 g/dL (32.0-36.0); MEAN CORPUSCULAR VOLUME 93.3 fL (80.0-94.0); MEAN PLATELET VOLUME 8.6 fL (7.4-11.4); MONOCYTES # (AUTO) 0.8 10^3/uL (0.0-1.0); MONOCYTES % (AUTO) 6.7 %; NEUTROPHILS # (AUTO) 9.7 10^3/uL (1.5-6.6); NEUTROPHILS % (AUTO) 85.8 %; PLT - PLATELET COUNT 296 10^3/uL (130-450); RED BLOOD COUNT 3.42 10^6/uL (4.70-6.10); WHITE BLOOD COUNT 11.3 x10^3/uL (4.8-10.8)
[2022-08-25 05:46] LABS: ALBUMIN 2.3 g/dL (3.2-5.5); ALBUMIN/GLOBULIN RATIO 0.6 (1.0-2.2); BILIRUBIN,TOTAL 0.7 mg/dL (0.2-1.0); CALCIUM 8.6 mg/dL (8.5-10.3); POTASSIUM 3.9 mmol/L (3.5-5.0); TOTAL PROTEIN 6.2 g/dL (6.7-8.2)
[2022-08-25] MEDS: CEFEPIME 2 GM in SODIUM CHLORIDE 0.9% MINIBAG 100 ML IV SCH ×2 (10:12→20:48)
--- NOTE | 2022-08-25 12:02 | CONSULTATION NOTE ---
Referring Provider Name of Referring Provider:: Dr Baltazar Gunter and Dr Chava Clemente Consult Date: 08/25/22 Chief Complaint - Chief Complaint Chief Complaint: Fever, GN bacteremia History of Present Illness - History Obtained From History obtained from: ED provider and chart review - History of Present Illness HPI Comment/Other: This is an 87-year-old male with a history of dementia, hard of hearing, pacemaker placed 02/11, metastatic melanoma with mets to the liver and bone, is treated at [facility]. The patient had an admission 2 months ago with E. coli bacteremia, received several days of IV antibiotics, was transitioned to p.o. antibiotics and discharged home and finished that course of treatment. He presented back 1 month later with fever, confusion and blood cultures quickly again grew E. coli. He was admitted to the hospitalist service and we phone consulted with his [facility] oncologist, Dr. Arianna Reeder and also infectious disease at [facility] and it was advised that the patient get 2 weeks of IV antibiotics that time, which he did. In looking for a source, his urine culture only grew yeast and polymicrobial mallory, no bacteria both on the first and the second hospitalizations. Patient had urinary retention documented during the 2nd recent hospitalization here, and he was discharged home with a chronic Brice catheter and was advised to have urology management. That appointment is upcoming in about a week. Other sources for infection were evaluated for. This man has multiple liver nodules, felt to be mets but could not rule out abscess. At time of discharge, it was discussed with the that if he gets bacteremia again, he should be hospitalized at a larger facility with infectious disease, oncology and other specialists in order to evaluate why he has recurrent bacteremia. Approximately 2 weeks ago this patient had biopsy of one of the liver masses, done at , and it was confirmed that that was a melanoma met, it did not come back showing abscess. The patient also recently had brain MRI ( with pacemaker compatibility), and this showed no areas of mets but he did have some microhemorrhages. Yesterday the patient developed shaking chills, the brought him to the ER. He had a documented fever of 38.9C, Lactic acid of 4.5. He was confused. He received IV fluids and a dose of IV antibiotics. The insisted that his Brice catheter be removed, despite not yet having the Urology appointment. The Brice was removed last night. He improved clinically and was able to be dischar ge home. Several hours later his blood culture returned positive and he was called and advised to come back to the emergency room room where he is now. Yesterday's ED provider, Dr. Escoto reviewed the above with me and I advised Dr Escoto that this man (and his ) were told if bacteremia happens again that he needs to be hospitalized in a larger facility. He has now received empiric antibiotics including vancomycin, ceftriaxone, metronidazole and cefepime. The overnight ED provider (Dr Gunter) reached out to [facility] Hospitalist service last night, to have him transferred there, but no beds were available. That ED provider also contacted [facility] here there were beds available, but the Hospitalist there did not understand why we could not handle this case of bacteremia here and did not accept the patient. The evening ED provider (Dr Gunter) then signed out to the morning ED provider (Dr Chava Cooper) who spoke with me today on the day shift Hospitalist team, requesting we admit this patient here. History - Past Medical History Cardiovascular: reports: Hypertension, High cholesterol, Pulmonary embolism, Atrial fibrillation, Other Respiratory: reports: Asthma Neuro: reports: Dementia Endocrine/Autoimmune: reports: None GI: reports: GERD (w isaias UMER in 2002), Diverticulitis : reports: Benign prostate hypertrophy (w LUTs, s/p TURP then dilation of stricture then TUR of stricture), Incontinence, Nocturia, Kidney stones, Other (erecctile dysfunction, balanitis) HEENT: reports: Other ([place]) Psych: reports: None Musculoskeletal: reports: Osteoarthritis, Chronic back pain Derm: reports: None, Other MRSA Hx?: No - Past Surgical History General: reports: Appendectomy, Colonoscopy, EGD, Other Cardiovascular: reports: Pacemaker HEENT: reports: Cataracts Derm: reports: Skin cancer surgery - Family & Social History Family History Comment/Other: unavailable Living arrangement: At home Living Situation: With spouse/s.o. Social History Notes: Nonsmoker and no alcohol abuse hx. Lives w . She makes all his decisions. - Substance History Use: Uses substance without health or social issues: NONE - POLST Patient has POLST: No POLST Status: DNR (per his who has advanced directives at home) Meds/Allgy - Home Medications Home Medications: Ambulatory Orders Medication Instructions Recorded Confirmed Apixaban [Eliquis] 5 mg PO BID 07/08/22 08/11/22 Gabapentin [Neurontin] 300 mg PO BID 07/08/22 08/11/22 Binimetinib [Mektovi] 30 mg PO BID 07/09/22 08/11/22 Encorafenib [Braftovi] 300 mg PO DAILY 07/09/22 08/11/22 Fluticasone 44 Mcg [Flovent] 2 puffs INH BID 07/16/22 08/11/22 Acetaminophen [Tylenol] 500 mg PO Q4HR PRN tab 07/28/22 08/11/22 Furosemide [Lasix] 20 mg PO MOWEFR #15 tab 07/28/22 08/11/22 Multivitamin W/Minerals [Theragran 1 tab PO DAILYWM #30 tab 07/28/22 08/11/22 M] Nystatin [Nystop] 1 applic TOP BID #15 gm 07/28/22 08/11/22 Potassium Chloride [Klor-Con] 20 meq PO MOWEFR #15 packet 07/28/22 08/11/22 Tamsulosin [Flomax] 0.4 mg PO DAILY #30 cap 07/28/22 08/11/22 oxyCODONE [Roxicodone] 2.5 - 5 mg PO Q8H PRN #10 tablet 08/11/22 MDD 6 Sulfamethox/Trimeth 800/160 1 each PO BID #14 tablet 08/24/22 [Bactrim Ds 800/160] - Allergies Allergies/Adverse Reactions: Allergies Allergy/AdvReac Type Severity Reaction Status Date / Time pneumococcal vaccine Allergy Hives Verified 08/24/22 18:26 [From Prevnar 13 (PF)] Review of Systems - Constitutional Constitutional: reports: Fever, Chills - Ears, Nose & Throat Ears, Nose & Throat: reports: Hearing loss - Genitourinary Genitourinary: reports: Other (Had a Brice for a month, it was removed yesterday , after the insisted.) - All Other Systems All Other Systems: reports: Other (As in HPI, patient has dementia and is [place] and can give no details.) Exam - Vital Signs Reviewed Vital Signs: Yes Vital Signs: Vital Signs x48h Temp Pulse Resp BP Pulse Ox 08/25/22 11:29 79 18 122/58 L 95 08/25/22 10:00 78 16 113/57 L 98 08/25/22 07:40 81 12 126/100 H 99 08/25/22 06:55 37.7 C 08/25/22 05:05 70 16 139/65 H 100 - Physical Exam General Appearance: positive: No acute distress Respiratory: positive: No respiratory distress Cardiovascular: positive: Regular rate & rhythm Skin: positive: Warm, Dry Conclusion/Plan - Problem List (1) Recurrent bacteremia Conclusion/Plan: This is the patient's third episode of bacteremia, all are E coli, and the source that is seeding his bloodstream cannot be found, per our previous work- ups. Even though the patient has an MRI-compatible pacemaker, to have an MRI, the pacemaker needs to be adjusted by setting the rate 20 points above his resting heart rate using a pacemaker interrogator/computer device (which I could do, being a Community Resource Consultant, but I do not have the interrogator device), and then he needs to be monitored while in the MRI scanner by a Cardiology nurse, which we do not have here. Therefore an MRI of his abdomen/pelvis is not possible to be obtained here. I called the Infectious Disease specialist on-call today at [facility] and presented this entire case. Today's ID [facility] doctor agreed that this patient must be transferred to a center with higher level of care which have subspecialist of ID and possibly Oncology available. The ID provider told me that the [facility] oncology patients often have their own H ospitalist team and advised I talked to that [facility] provider. I called Dr. Arianna Reeder, this patient's oncologist. I reviewed the whole case including his presentation to the ER yesterday. Dr. Arianna Reeder agreed that the patient needs to be transferred to a larger hospital. [facility] She reached out to that provider today who is Dr. Fernando Livingston and Dr. Wolf accepted this patient on his service. Dr. Arianna Reeder called me back and informed me of this. Dr. Reeder is requesting that an official request for transfer to Dr. Livingston's team at [facility] be made today through the Transfer Center at . I informed Dr. Chava Clemente of all the above. Recommendations: Continue with IV antibiotics. His E. coli has been pansensitive before, so would continue with IV cefepime and also continue IV fluids and his usual meds. The patient should be transferred from ER status to a hospital with specialists and that has higher capabilities. If the patient is admitted here, his priority of being transferred drops. (2) Metastatic melanoma Conclusion/Plan: Recommendation: In my discussion with Dr. Arianna Reeder today, she recommended to remain off of his chemotherapy meds now (3) Dementia Conclusion/Plan: At the last hospitalization the patient fell out of bed trying to climb out on his own, could not remember that he needed to call for help. Work-up for fracture was negative. At the last hospitalization discharge, the was advised that he now needs 24/7 caregivers. The patient's daughter was also at bedside and agreed. The and daughter were advised to hire caregivers in order to give the caregiver break. They both said that this would be done. Recommendations: Continue with management, for a dementia patient who is [place], as described above. - Lab Results Fish Bones: 08/25/22 05:28 08/25/22 05:28
--- NOTE | 2022-08-25 13:08 | ED Physician Documentation ---
ED Addendum - Addendum Addendum: Patient was signed out to me by overnight physician.Last night the reason for transfer was unclear. I spoke with Dr. Simon this morning. She has reached out to the [facility] and his oncology team. Please see her consult for further details. His oncologist request transfer for recurrent E. coli bacteremia with unclear source.He remains on cefepime. I did update the patient and the at the bedside this morning. Labs this morning appear improved from yesterday. Vital signs appear stable. 08/25/22 13:35 D/W Dr. Fernando Brar (hospitalist [facility]/). Will Placed the patient on their waiting list. However he states that realistically it could be several days up to a week to get the patient over there as they have a long waiting list.He did state that the patient could be admitted to our hospital and if is better could be discharged and have this work-up done also as an outpatient as again a transfer may realistically not happen in a quick fashion. 08/25/22 15:44 - Discussed with Dr. Tubbs (hospitalist at [facility]). She agrees to accept the patient in transfer. They will likely have a bed tonight. I have updated the patient and his who are at the bedside that he has been accepted to [facility] and that this is likely where he will be transferred as [facility] has a long waiting list. Departure - Departure Disposition: 02 Transfer Acute Care Hosp Clinical Impression: E coli bacteremia Sepsis Qualifiers: Sepsis type: Escherichia coli Sepsis acute organ dysfunction status: without acute organ dysfunction Qualified Code(s): A41.51 - Sepsis due to Escherichia coli [E. coli] Condition: Serious
[2022-08-25 22:40] VITALS: BP 151/64
== END 2022-08-25 23:20 | disposition short-term general hospital (02) ==
LOC: ED 18:16
DX: A41.51 Sepsis due to Escherichia coli [E. coli] (principal); Z95.0 Presence of cardiac pacemaker; F03.90 Unspecified dementia, unspecified severity, without behavioral disturbance, psychotic disturbance, mood disturbance, and anxiety; C79.9 Secondary malignant neoplasm of unspecified site; C78.7 Secondary malignant neoplasm of liver and intrahepatic bile duct; N30.01 Acute cystitis with hematuria; Z20.822 Contact with and (suspected) exposure to COVID-19; Z66 Do not resuscitate
CPT/HCPCS: 36415; 51702; 71045; 80053; 81001; 82140; 83605; 83690; 85025; 87040; 87077; 87086; 87150; 87181; 87633; 93005; 96361; 96365; 96366; 96367; 96368; 96375; 99285; A9270; J3370; 81003

== ENCOUNTER 2022-09-08 01:04 | Outpatient (CLI) | payer MEDICARE, OTHER | END 2022-09-08 01:05 | disposition critical access hospital (66) | LOC: EMS 01:04 | DX: R41.0 Disorientation, unspecified (principal); R53.83 Other fatigue; R51.9 Headache, unspecified; W18.39XA Other fall on same level, initial encounter; Y92.000 Kitchen of unspecified non-institutional (private) residence as the place of occurrence of the external cause; Z79.01 Long term (current) use 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s | CPT/HCPCS: A0425; A0429 ==

== ENCOUNTER 2022-09-08 01:20 | Emergency (ER) | payer MEDICARE, OTHER ==
--- NOTE | 2022-09-08 01:34 | ED Physician Documentation ---
History of Present Illness - Stated complaint Stated Complaint: GLF - Chief complaint Chief Complaint: Trauma Hd/Nk - History obtained from History obtained from: EMS - Additonal information Additional information: 87-year-old man presents to the emergency department as a modified trauma after ground-level fall backwards onto hard tile, hitting his head. Patient is on Eliquis for A-fib. He has a history of dementia, metastatic Skin cancer on chemotherapy, and have a chronic progressive weakness over the past several weeks per family. he is unable to state his name, where he is, or the year but does state he has no pain. PD PAST MEDICAL HISTORY - Past Medical History Cardiovascular: Hypertension, High cholesterol, Pulmonary embolism, Atrial fibrillation, Other Respiratory: Asthma Neuro: Dementia Endocrine/Autoimmune: None GI: GERD (w a UMER in 2002), Diverticulitis : Benign prostate hypertrophy (w LUTs, s/p TURP then dilation of stricture then TUR of stricture), Incontinence, Nocturia, Kidney stones, Other (erecctile dysfunction, balanitis) HEENT: Other (NIKOLSKI) Psych: None Musculoskeletal: Osteoarthritis, Chronic back pain Derm: None, Other - Past Surgical History Past Surgical History: Yes General: Appendectomy, Colonoscopy, EGD, Other Cardiovascular: Pacemaker HEENT: Cataracts Derm: Skin cancer surgery - Present Medications Home Medications: Ambulatory Orders Medication Instructions Recorded Confirmed Apixaban [Eliquis] 5 mg PO BID 07/08/22 08/11/22 Gabapentin [Neurontin] 300 mg PO BID 07/08/22 08/11/22 Binimetinib [Mektovi] 30 mg PO BID 07/09/22 08/11/22 Encorafenib [Braftovi] 300 mg PO DAILY 07/09/22 08/11/22 Fluticasone 44 Mcg [Flovent] 2 puffs INH BID 07/16/22 08/11/22 Acetaminophen [Tylenol] 500 mg PO Q4HR PRN tab 07/28/22 08/11/22 Furosemide [Lasix] 20 mg PO MOWEFR #15 tab 07/28/22 08/11/22 Multivitamin W/Minerals [Theragran 1 tab PO DAILYWM #30 tab 07/28/22 08/11/22 M] Nystatin [Nystop] 1 applic TOP BID #15 gm 07/28/22 08/11/22 Potassium Chloride [Klor-Con] 20 meq PO MOWEFR #15 packet 07/28/22 08/11/22 Tamsulosin [Flomax] 0.4 mg PO DAILY #30 cap 07/28/22 08/11/22 oxyCODONE [Roxicodone] 2.5 - 5 mg PO Q8H PRN #10 tablet 08/11/22 MDD 6 Sulfamethox/Trimeth 800/160 1 each PO BID #14 tablet 08/24/22 [Bactrim Ds 800/160] - Allergies Allergies/Adverse Reactions: Allergies Allergy/AdvReac Type Severity Reaction Status Date / Time pneumococcal vaccine Allergy Hives Verified 08/24/22 18:26 [From Prevnar 13 (PF)] - Social History Does the pt smoke?: No Smoking Status: Never smoker Does the pt drink ETOH?: Yes Does the pt have substance abuse?: No - Immunizations Immunizations are current?: Yes - POLST Patient has POLST: No POLST Status: DNR (per his who has advanced directives at home) PD ED PE NORMAL - Vitals Vital signs reviewed: Yes - General General: Other (elderly appearing) - HEENT HEENT: Atraumatic, PERRL, EOMI, Pharynx benign - Neck Neck: No bony TTP, Other (soft collar in place in lieu of c collar for patient comfort given advanced age and palliative status) - Cardiac Cardiac: RRR - Respiratory Respiratory: No respiratory distress, Clear bilaterally - Back Back: No spinal TTP - Derm Derm: Normal color, Warm and dry - Extremities Extremities: No deformity - Neuro Eye Opening: Spontaneous Motor: Obeys Commands Verbal: Confused GCS Score: 14 Results - Vitals Vitals: Vital Signs - 24 hr 09/08/22 01:22 Temperature 36.1 C L Heart Rate 68 Respiratory 16 Rate Blood Pressure 130/86 H O2 Saturation 99 Oxygen O2 Source Room air PD Medical Decision Making - ED course ED course: 87-year-old male presents as a modified trauma status post ground-level fall with head trauma on Eliquis.Plan to undergo traumatic work-up. CT head, C-spine, chest and pelvis x-rays were unremarkable. is uncomfortable taking the patient home and would like to speak with social work in the morning for resources for group home placement. Plan to endorsed to incoming daytime EDMD at 7 AM shift change.
--- NOTE | 2022-09-08 01:50 | XRAY Report ---
PROCEDURE: Pelvis 1 View INDICATIONS: trauma TECHNIQUE: Single view of the pelvis acquired. COMPARISON: None. FINDINGS: Bones: No fractures or dislocations. No suspicious bony lesions. Soft tissues: Visualized bowel gas pattern is normal. No suspicious soft tissue calcifications. IMPRESSION: 1. No definite fracture or dislocation. Reviewed by: Donovan Roblero MD on 09/08/2022 1:49 AM PDT Approved by: Donovan Roblero MD on 09/08/2022 1:49 AM PDT Station ID: [id number]
--- NOTE | 2022-09-08 01:50 | XRAY Report ---
PROCEDURE: Chest 1 View X-Ray INDICATIONS: trauma TECHNIQUE: One view of the chest was acquired. COMPARISON: Chest x-ray 08/24/2022. FINDINGS: Surgical changes and devices: There is a catheter in the right axillary region which may represent a right upper extremity PICC line. Lungs and pleura: No pleural effusions or pneumothorax. No definite acute airspace opacities. Mediastinum: Mediastinal contours appear normal. Heart size is normal. Bones and chest wall: No displaced fractures identified. No suspicious bony lesions. Overlying soft tissues appear unremarkable. IMPRESSION: 1. No definite acute cardiopulmonary disease. Reviewed by: Donovan Roblero MD on 09/08/2022 1:49 AM PDT Approved by: Donovan Roblero MD on 09/08/2022 1:49 AM PDT Station ID: [id number]
--- OUTSIDE RECORDS SUMMARY | 2022-09-08 02:11 | EXTERNAL MEDICAL SUMMARY RPT | Continuity of Care Document ---
Author Name Unknown Address [address] [place] [address] Phone Organization [facility] Address [address] [place] [address] Phone Care Team Providers Care Delineator Name Role Phone Unavailable Unavailable Unavailable Lucien Lan Unavailable Unavailable Allergies and Intolerances date description facility type (no date) pneumococcal 7-valent conjugate to [facility] (unknown) Medications date description facility 2022-06-16 00:00 Apixaban [facility] 2022-06-16 00:00 Amlodipine [facility] 2022-06-16 00:00 Gabapentin [facility] Problems date description facility 2022-06-16 00:00 Sepsis [facility] 2022-06-16 00:00 Atrial fibrillation [facility] 2022-06-16 00:00 Urinary tract infection [facility] 2022-06-16 00:00 Confusion [facility] 2022-06-16 00:00 Elevated transaminase measureme nt [facility] 2022-06-16 00:00 Body mass index (BMI) of 22.0 t o 22.9 in adult [facility] 2022-06-16 00:00 Presence of cardiac pacemaker I Located within [facility] 2022-06-17 00:00 Primary hypertension [facility] 2022-06-17 00:00 Asthma [facility] 2022-06-17 00:00 Impaired cognition [facility] 2022-06-17 00:00 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 [facility] 2022-06-19 13:52 Sepsis, unspecified organism Is [facility] 2022-06-22 08:33 Sepsis, unspecified organism Is [facility] 2022-06-22 11:44 Sepsis, unspecified organism [facility] 2022-06-22 14:32 Sepsis, unspecified organism [facility] 2022-06-27 14:23 Sepsis, unspecified organism [facility] 2022-06-27 14:43 Sepsis, unspecified organism Is [facility] Procedures date description facility 2022-06-16 00:00 Computed tomography of head or brain without contrast [facility] 2022-06-21 00:00 Gram Stain [facility] 2022-06-20 00:00 CT soft tissue neck [facility] 2022-06-16 00:00 [facility]:00 CT abdomen pelvis w [facility] 2022-06-17 00:[address] [facility] 2022-06-16 00:00 CT chest [facility] 2022-06-21 00:00 CT biopsy liver [facility] Results/Labs test date author facility value unit interpretation Result panel 1 (unknown) (no date) (unknown) [facility] (no value) (units unknown) (unknown) Result panel 2 (unknown) (no date) (unknown) [facility] (no value) (units unknown) (unknown) Result panel 3 (unknown) (no date) (unknown) [facility] (no value) (units unknown) (unknown) Result panel 4 (unknown) (no date) (unknown) [facility] (no value) (units unknown) (unknown) Result panel 5 (unknown) (no date) (unknown) [facility] (no value) (units unknown) (unknown) Result panel 6 (unknown) (no date) (unknown) [facility] (no value) (units unknown) (unknown) Result panel 7 (unknown) (no date) (unknown) [facility] (no value) (units unknown) (unknown) Result panel 8 (unknown) (no date) (unknown) [facility] (no value) (units unknown) (unknown) Result panel 9 (unknown) (no date) (unknown) [facility] (no value) (units unknown) (unknown) Result panel 10 (unknown) (no date) (unknown) [facility] (no value) (units unknown) (unknown) Result panel 11 (unknown) (no date) (unknown) [facility] (no value) (units unknown) (unknown) Result panel 12 (unknown) (no date) (unknown) [facility] (no value) (units unknown) (unknown) Result panel 13 (unknown) (no date) (unknown) [facility] (no value) (units unknown) (unknown) Result panel 14 (unknown) (no date) (unknown) [facility] (no value) (units unknown) (unknown) Result panel 15 (unknown) (no date) (unknown) [facility] (no value) (units unknown) (unknown) Result panel 16 (unknown) (no date) (unknown) [facility] (no value) (units unknown) (unknown) Result panel 17 (unknown) (no date) (unknown) [facility] (no value) (units unknown) (unknown) Result panel 18 (unknown) (no date) (unknown) [facility] (no value) (units unknown) (unknown) Result panel 19 (unknown) (no date) (unknown) [facility] (no value) (units unknown) (unknown) Result panel 20 (unknown) (no date) (unknown) [facility] (no value) (units unknown) (unknown) Result panel 21 (unknown) (no date) (unknown) [facility] (no value) (units unknown) (unknown) Result panel 22 (unknown) (no date) (unknown) [facility] (no value) (units unknown) (unknown) Result panel 23 (unknown) (no date) (unknown) [facility] (no value) (units unknown) (unknown) Result panel 24 (unknown) (no date) (unknown) [facility] (no value) (units unknown) (unknown) Result panel 25 (unknown) (no date) (unknown) [facility] (no value) (units unknown) (unknown) Result panel 26 (unknown) (no date) (unknown) [facility] (no value) (units unknown) (unknown) Result panel 27 (unknown) (no date) (unknown) [facility] (no value) (units unknown) (unknown) Result panel 28 (unknown) (no date) (unknown) [facility] (no value) (units unknown) (unknown) Result panel 29 (unknown) (no date) (unknown) [facility] (no value) (units unknown) (unknown) Result panel 30 (unknown) (no date) (unknown) [facility] (no value) (units unknown) (unknown) Result panel 31 (unknown) (no date) (unknown) [facility] (no value) (units unknown) (unknown) Result panel 32 (unknown) (no date) (unknown) [facility] (no value) (units unknown) (unknown) Result panel 33 (unknown) (no date) (unknown) [facility] (no value) (units unknown) (unknown) Result panel 34 (unknown) (no date) (unknown) [facility] (no value) (units unknown) (unknown) Result panel 35 (unknown) (no date) (unknown) [facility] (no value) (units unknown) (unknown) Result panel 36 (unknown) (no date) (unknown) [facility] (no value) (units unknown) (unknown) Result panel 37 (unknown) (no date) (unknown) [facility] (no value) (units unknown) (unknown) Result panel 38 (unknown) (no date) (unknown) [facility] (no value) (units unknown) (unknown) Result panel 39 (unknown) (no date) (unknown) [facility] (no value) (units unknown) (unknown) Result panel 40 (unknown) (no date) (unknown) [facility] (no value) (units unknown) (unknown) Result panel 41 (unknown) (no date) (unknown) [facility] (no value) (units unknown) (unknown) Result panel 42 (unknown) (no date) (unknown) [facility] (no value) (units unknown) (unknown) Result panel 43 (unknown) (no date) (unknown) [facility] (no value) (units unknown) (unknown) Result panel 44 (unknown) (no date) (unknown) [facility] (no value) (units unknown) (unknown) Result panel 45 (unknown) (no date) (unknown) [facility] (no value) (units unknown) (unknown) Result panel 46 (unknown) (no date) (unknown) [facility] (no value) (units unknown) (unknown) Result panel 47 (unknown) (no date) (unknown) [facility] (no value) (units unknown) (unknown) Result panel 48 (unknown) (no date) (unknown) [facility] (no value) (units unknown) (unknown) Result panel 49 (unknown) (no date) (unknown) [facility] (no value) (units unknown) (unknown) Result panel 50 (unknown) (no date) (unknown) [facility] (no value) (units unknown) (unknown) Result panel 51 (unknown) (no date) (unknown) [facility] (no value) (units unknown) (unknown) Result panel 52 (unknown) (no date) (unknown) [facility] (no value) (units unknown) (unknown) Result panel 53 (unknown) (no date) (unknown) [facility]units [facility]) (unknown) Result panel 54 (unknown) (no date) (unknown) [facility] (no value) (units unknown) (unknown) Result panel 55 (unknown) (no date) (unknown) [facility] (no value) (units unknown) (unknown) Result panel 56 (unknown) (no date) (unknown) [facility] (no value) (units unknown) (unknown) Result panel 57 (unknown) (no date) (unknown) [facility] (no value) (units unknown) (unknown) Result panel 58 (unknown) (no date) (unknown) [facility] (no value) (units unknown) (unknown) Result panel 59 (unknown) (no date) (unknown) [facility] (no value) (units unknown) (unknown) Result panel 60 (unknown) (no date) (unknown) [facility] (no value) (units unknown) (unknown) Result panel 61 (unknown) (no date) (unknown) [facility] (no value) (units unknown) (unknown) Result panel 62 (unknown) (no date) (unknown) [facility] (no value) (units unknown) (unknown) Result panel 63 (unknown) (no date) (unknown) [facility] (no value) (units unknown) (unknown) Result panel 64 (unknown) (no date) (unknown) [facility] (no value) (units unknown) (unknown) Result panel 65 (unknown) (no date) (unknown) [facility] (no value) (units unknown) (unknown) Result panel 66 (unknown) (no date) (unknown) [facility] (no value) (units unknown) (unknown) Result panel 67 (unknown) (no date) (unknown) [facility] (no value) (units unknown) (unknown) Result panel 68 (unknown) (no date) (unknown) [facility] (no value) (units unknown) (unknown) Result panel 69 (unknown) (no date) (unknown) [facility] (no value) (units unknown) (unknown) Result panel 70 (unknown) (no date) (unknown) [facility] (no value) (units unknown) (unknown) Result panel 71 (unknown) (no date) (unknown) [facility] (no value) (units unknown) (unknown) Result panel 72 (unknown) (no date) (unknown) [facility] (no value) (units unknown) (unknown) Result panel 73 (unknown) (no date) (unknown) [facility] (no value) (units unknown) (unknown) Result panel 74 (unknown) (no date) (unknown) [facility] (no value) (units unknown) (unknown) Result panel 75 (unknown) (no date) (unknown) [facility] (no value) (units unknown) (unknown) Result panel 76 (unknown) (no date) (unknown) [facility] (no value) (units unknown) (unknown) Result panel 77 (unknown) (no date) (unknown) [facility] (no value) (units unknown) (unknown) Result panel 78 (unknown) (no date) (unknown) [facility] (no value) (units unknown) (unknown) Result panel 79 (unknown) (no date) (unknown) [facility] (no value) (units unknown) (unknown) Result panel 80 (unknown) (no date) (unknown) [facility] (no value) (units unknown) (unknown) Result panel 81 (unknown) (no date) (unknown) [facility] (no value) (units unknown) (unknown) Result panel 82 (unknown) (no date) (unknown) [facility] (no value) (units unknown) (unknown) Result panel 83 (unknown) (no date) (unknown) [facility] (no value) (units unknown) (unknown) Result panel 84 (unknown) (no date) (unknown) [facility] (no value) (units unknown) (unknown) Result panel 85 (unknown) (no date) (unknown) [facility] (no value) (units unknown) (unknown) Result panel 86 (unknown) (no date) (unknown) [facility] (no value) (units unknown) (unknown) Result panel 87 (unknown) (no date) (unknown) [facility] (no value) (units unknown) (unknown) Result panel 88 (unknown) (no date) (unknown) [facility] (no value) (units unknown) (unknown) Result panel 89 (unknown) (no date) (unknown) [facility] (no value) (units unknown) (unknown) Result panel 90 (unknown) (no date) (unknown) [facility] (no value) (units unknown) (unknown) Result panel 91 (unknown) (no date) (unknown) [facility] (no value) (units unknown) (unknown) Result panel 92 (unknown) (no date) (unknown) [facility] (no value) (units unknown) (unknown) Result panel 93 (unknown) (no date) (unknown) [facility] (no value) (units unknown) (unknown) Result panel 94 (unknown) (no date) (unknown) [facility] (no value) (units unknown) (unknown) Result panel 95 (unknown) (no date) (unknown) [facility] (no value) (units unknown) (unknown) Result panel 96 (unknown) (no date) (unknown) [facility] (no value) (units unknown) (unknown) Result panel 97 (unknown) (no date) (unknown) [facility] (no value) (units unknown) (unknown) Result panel 98 (unknown) (no date) (unknown) [facility] (no value) (units unknown) (unknown) Result panel 99 (unknown) (no date) (unknown) [facility] (no value) (units unknown) (unknown) Result panel 100 (unknown) (no date) (unknown) [facility] (no value) (units unknown) (unknown) Result panel 101 (unknown) (no date) (unknown) [facility] (no value) (units unknown) (unknown) Result panel 102 (unknown) (no date) (unknown) [facility] (no value) (units unknown) (unknown) Result panel 103 (unknown) (no date) (unknown) [facility] (no value) (units unknown) (unknown) Result panel 104 (unknown) (no date) (unknown) [facility] (no value) (units unknown) (unknown) Result panel 105 (unknown) (no date) (unknown) [facility] (no value) (units unknown) (unknown) Result panel 106 (unknown) (no date) (unknown) [facility] (no value) (units unknown) (unknown) Result panel 107 (unknown) (no date) (unknown) [facility] (no value) (units unknown) (unknown) Result panel 108 (unknown) (no date) (unknown) [facility] (no value) (units unknown) (unknown) Result panel 109 (unknown) (no date) (unknown) [facility] (no value) (units unknown) (unknown) Result panel 110 (unknown) (no date) (unknown) [facility] (no value) (units unknown) (unknown) Result panel 111 (unknown) (no date) (unknown) [facility] (no value) (units unknown) (unknown) Result panel 112 (unknown) (no date) (unknown) [facility] (no value) (units unknown) (unknown) Result panel 113 (unknown) (no date) (unknown) [facility] (no value) (units unknown) (unknown) Result panel 114 (unknown) (no date) (unknown) [facility] (no value) (units unknown) (unknown) Result panel 115 (unknown) (no date) (unknown) [facility] (no value) (units unknown) (unknown) Result panel 116 (unknown) (no date) (unknown) [facility] (no value) (units unknown) (unknown) Result panel 117 (unknown) (no date) (unknown) [facility] (no value) (units unknown) (unknown) Result panel 118 (unknown) (no date) (unknown) [facility] (no value) (units unknown) (unknown) Result panel 119 (unknown) (no date) (unknown) [facility] (no value) (units unknown) (unknown) Result panel 120 (unknown) (no date) (unknown) [facility] (no value) (units unknown) (unknown) Result panel 121 (unknown) (no date) (unknown) [facility] (no value) (units unknown) (unknown) Result panel 122 (unknown) (no date) (unknown) [facility] (no value) (units unknown) (unknown) Result panel 123 (unknown) (no date) (unknown) [facility] (no value) (units unknown) (unknown) Result panel 124 (unknown) (no date) (unknown) [facility] (no value) (units unknown) (unknown) Result panel 125 (unknown) (no date) (unknown) [facility] (no value) (units unknown) (unknown) Result panel 126 (unknown) (no date) (unknown) [facility] (no value) (units unknown) (unknown) Result panel 127 (unknown) (no date) (unknown) [facility] (no value) (units unknown) (unknown) Result panel 128 (unknown) (no date) (unknown) [facility] (no value) (units unknown) (unknown) Result panel 129 (unknown) (no date) (unknown) [facility] (no value) (units unknown) (unknown) Result panel 130 (unknown) (no date) (unknown) [facility] (no value) (units unknown) (unknown) Result panel 131 (unknown) (no date) (unknown) [facility] (no value) (units unknown) (unknown) Result panel 132 (unknown) (no date) (unknown) [facility] (no value) (units unknown) (unknown) Result panel 133 (unknown) (no date) (unknown) [facility] (no value) (units unknown) (unknown) Result panel 134 (unknown) (no date) (unknown) [facility] (no value) (units unknown) (unknown) Result panel 135 (unknown) (no date) (unknown) [facility] (no value) (units unknown) (unknown) Result panel 136 (unknown) (no date) (unknown) [facility] (no value) (units unknown) (unknown) Result panel 137 (unknown) (no date) (unknown) [facility] (no value) (units unknown) (unknown) Result panel 138 (unknown) (no date) (unknown) [facility] (no value) (units unknown) (unknown) Result panel 139 (unknown) (no date) (unknown) [facility] (no value) (units unknown) (unknown) Result panel 140 (unknown) (no date) (unknown) [facility] (no value) (units unknown) (unknown) Result panel 141 (unknown) (no date) (unknown) [facility] (no value) (units unknown) (unknown) Result panel 142 (unknown) (no date) (unknown) [facility] (no value) (units unknown) (unknown) Result panel 143 (unknown) (no date) (unknown) [facility] (no value) (units unknown) (unknown) Result panel 144 (unknown) (no date) (unknown) [facility] (no value) (units unknown) (unknown) Result panel 145 (unknown) (no date) (unknown) [facility] (no value) (units unknown) (unknown) Result panel 146 (unknown) (no date) (unknown) [facility] (no value) (units unknown) (unknown) Result panel 147 (unknown) (no date) (unknown) [facility] (no value) (units unknown) (unknown) Result panel 148 (unknown) (no date) (unknown) [facility] (no value) (units unknown) (unknown) Result panel 149 (unknown) (no date) (unknown) [facility] (no value) (units unknown) (unknown) Result panel 150 (unknown) (no date) (unknown) [facility] (no value) (units unknown) (unknown) Result panel 151 (unknown) (no date) (unknown) [facility] (no value) (units unknown) (unknown) Result panel 152 (unknown) (no date) (unknown) [facility] (no value) (units unknown) (unknown) Result panel 153 (unknown) (no date) (unknown) [facility] (no value) (units unknown) (unknown) Result panel 154 (unknown) (no date) (unknown) [facility] (no value) (units unknown) (unknown) Result panel 155 (unknown) (no date) (unknown) [facility] (no value) (units unknown) (unknown) Result panel 156 (unknown) (no date) (unknown) [facility] (no value) (units unknown) (unknown) Result panel 157 (unknown) (no date) (unknown) [facility] (no value) (units unknown) (unknown) Result panel 158 (unknown) (no date) (unknown) [facility] (no value) (units unknown) (unknown) Result panel 159 (unknown) (no date) (unknown) [facility] (no value) (units unknown) (unknown) Result panel 160 (unknown) (no date) (unknown) [facility] (no value) (units unknown) (unknown) Result panel 161 (unknown) (no date) (unknown) [facility] (no value) (units unknown) (unknown) Result panel 162 (unknown) (no date) (unknown) [facility] (no value) (units unknown) (unknown) Result panel 163 (unknown) (no date) (unknown) [facility] (no value) (units unknown) (unknown) Result panel 164 (unknown) (no date) (unknown) [facility] (no value) (units unknown) (unknown) Result panel 165 (unknown) (no date) (unknown) [facility] (no value) (units unknown) (unknown) Result panel 166 (unknown) (no date) (unknown) [facility] (no value) (units unknown) (unknown) Result panel 167 (unknown) (no date) (unknown) [facility] (no value) (units unknown) (unknown) Result panel 168 (unknown) (no date) (unknown) [facility] (no value) (units unknown) (unknown) Result panel 169 (unknown) (no date) (unknown) [facility] (no value) (units unknown) (unknown) Result panel 170 (unknown) (no date) (unknown) [facility] (no value) (units unknown) (unknown) Result panel 171 (unknown) (no date) (unknown) [facility] (no value) (units unknown) (unknown) Result panel 172 (unknown) (no date) (unknown) [facility] (no value) (units unknown) (unknown) Result panel 173 (unknown) (no date) (unknown) [facility] (no value) (units unknown) (unknown) Result panel 174 (unknown) (no date) (unknown) [facility] (no value) (units unknown) (unknown) Result panel 175 (unknown) (no date) (unknown) [facility] (no value) (units unknown) (unknown) Result panel 176 (unknown) (no date) (unknown) [facility] (no value) (units unknown) (unknown) Result panel 177 (unknown) (no date) (unknown) [facility] (no value) (units unknown) (unknown) Result panel 178 (unknown) (no date) (unknown) [facility] (no value) (units unknown) (unknown) Result panel 179 (unknown) (no date) (unknown) [facility] (no value) (units unknown) (unknown) Result panel 180 (unknown) (no date) (unknown) [facility] (no value) (units unknown) (unknown) Result panel 181 (unknown) (no date) (unknown) [facility] (no value) (units unknown) (unknown) Result panel 182 (unknown) (no date) (unknown) [facility] (no value) (units unknown) (unknown) Result panel 183 (unknown) (no date) (unknown) [facility] (no value) (units unknown) (unknown) Result panel 184 (unknown) (no date) (unknown) [facility] (no value) (units unknown) (unknown) Result panel 185 (unknown) (no date) (unknown) [facility] (no value) (units unknown) (unknown) Result panel 186 (unknown) (no date) (unknown) [facility] (no value) (units unknown) (unknown) Result panel 187 (unknown) (no date) (unknown) [facility] (no value) (units unknown) (unknown) Result panel 188 (unknown) (no date) (unknown) [facility] (no value) (units unknown) (unknown) Result panel 189 (unknown) (no date) (unknown) (unknown) (no value) (units unknown) (unknown) (unknown) (no date) (unknown) (unknown) [id number] (units unknown) (unknown) (unknown) (no date) (unknown) (unknown) 06/16/22 (units unknown) (unknown) (unknown) (no date) (unknown) (unknown) [address] [place] [address] (units unknown) (unknown) (unknown) (no date) (unknown) (unknown) Accession Number: [id number] (units unknown) (unknown) (unknown) (no date) (unknown) (unknown) Age/Sex: 86 / M Date of Service: (units unknown) (unknown) (unknown) (no date) (unknown) (unknown) [place] [address] (units unknown) (unknown) (unknown) (no date) (unknown) (unknown) Approved by: Brandyn Davis M.D. on 06/16/2022 at 13:03 (units unknown) (unknown) (unknown) (no date) (unknown) (unknown) Bones and chest wall: No suspicious bony lesions. Overlying soft tissues (units unknown) (unknown) (unknown) (no date) (unknown) (unknown) COMPARISON: None. (units unknown) (unknown) (unknown) (no date) (unknown) (unknown) : 1935 Acct:[id number] (units unknown) (unknown) (unknown) (no date) (unknown) (unknown) Dictated by: Brandyn Davis M.D. on 06/16/2022 at 13:02 (units unknown) (unknown) (unknown) (no date) (unknown) (unknown) FINDINGS: (units unknown) (unknown) (unknown) (no date) (unknown) (unknown) IMPRESSION: Possible mild right and retrocardiac opacities could represent (units unknown) (unknown) (unknown) (no date) (unknown) (unknown) INDICATIONS: suspected sepsis (units unknown) (unknown) (unknown) (no date) (unknown) (unknown) [facility] (units unknown) (unknown) (unknown) (no date) (unknown) (unknown) Loc: ED (units unknown) (unknown) (unknown) (no date) (unknown) (unknown) Lungs and pleura: Low lung volumes. Possible mild right and retrocardiac (units unknown) (unknown) (unknown) (no date) (unknown) (unknown) Mediastinum: Mediastinal contours appear normal. Heart size is normal. (units unknown) (unknown) (unknown) (no date) (unknown) (unknown) Ordering Provider: Matt Swartz MD (units unknown) (unknown) (unknown) (no date) (unknown) (unknown) PROCEDURE: XR CHEST 1V (units unknown) (unknown) (unknown) (no date) (unknown) (unknown) Patient: Yoseph Cardoso MR#: [id number] (units unknown) (unknown) (unknown) (no date) (unknown) (unknown) Procedure: XR chest 1V (units unknown) (unknown) (unknown) (no date) (unknown) (unknown) Signed (units unknown) (unknown) (unknown) (no date) (unknown) (unknown) Surgical changes and devices: Left chest wall pulse generator with dual (units unknown) (unknown) (unknown) (no date) (unknown) (unknown) TECHNIQUE: One view of the chest was acquired. (units unknown) (unknown) (unknown) (no date) (unknown) (unknown) XRay Report (units unknown) (unknown) (unknown) (no date) (unknown) (unknown) appear (units unknown) (unknown) (unknown) (no date) (unknown) (unknown) atelectasis (units unknown) (unknown) (unknown) (no date) (unknown) (unknown) basal (units unknown) (unknown) (unknown) (no date) (unknown) (unknown) chamber (units unknown) (unknown) (unknown) (no date) (unknown) (unknown) electrode leads in place. (units unknown) (unknown) (unknown) (no date) (unknown) (unknown) opacities. No pleural effusions. (units unknown) (unknown) (unknown) (no date) (unknown) (unknown) or early airspace disease. Consider future imaging surveillance to assess for (units unknown) (unknown) (unknown) (no date) (unknown) (unknown) resolution. (units unknown) (unknown) (unknown) (no date) (unknown) (unknown) unremarkable. (units unknown) (unknown) Result panel 190 (unknown) (no date) (unknown) (unknown) 0 /ul (unknown) (unknown) (no date) (unknown) (unknown) 0.1 % (unknown) (unknown) (no date) (unknown) (unknown) 0.8 % (unknown) (unknown) (no date) (unknown) (unknown) 100 /ul (unknown) (unknown) (no date) (unknown) (unknown) 14.4 % (unknown) (unknown) (no date) (unknown) (unknown) 15.4 g/dl (unknown) (unknown) (no date) (unknown) (unknown) 222 x10 3/ul (unknown) (unknown) (no date) (unknown) (unknown) 30.4 pg (unknown) (unknown) (no date) (unknown) (unknown) 33.0 % (unknown) (unknown) (no date) (unknown) (unknown) 4.6 % (unknown) (unknown) (no date) (unknown) (unknown) 400 /ul (unknown) (unknown) (no date) (unknown) (unknown) 46.6 % (unknown) (unknown) (no date) (unknown) (unknown) 5.05 x10 6/ul (unknown) (unknown) (no date) (unknown) (unknown) 8200 /ul (unknown) (unknown) (no date) (unknown) (unknown) 85.1 % (unknown) (unknown) (no date) (unknown) (unknown) 9.4 % (unknown) (unknown) (no date) (unknown) (unknown) 9.6 x10 3/ul (unknown) (unknown) (no date) (unknown) (unknown) 900 /ul (unknown) (unknown) (no date) (unknown) (unknown) 92.4 fl (unknown) Result panel 191 (unknown) (no date) (unknown) (unknown) > 60 ml/min (unknown) (unknown) (no date) (unknown) (unknown) > 60 ml/min (unknown) (unknown) (no date) (unknown) (unknown) 0.99 mg/dl (unknown) (unknown) (no date) (unknown) (unknown) 1.1 (units unknown) (unknown) (unknown) (no date) (unknown) (unknown) 1.5 (units unknown) (unknown) (unknown) (no date) (unknown) (unknown) 135 mmol/l (unknown) (unknown) (no date) (unknown) (unknown) 146 mg/dl (unknown) (unknown) (no date) (unknown) (unknown) 146 mg/dl (unknown) (unknown) (no date) (unknown) (unknown) 17.6 seconds (unknown) (unknown) (no date) (unknown) (unknown) 2.1 mg/dl (unknown) (unknown) (no date) (unknown) (unknown) 2.7 g/dl (unknown) (unknown) (no date) (unknown) (unknown) 28 mmol/l (unknown) (unknown) (no date) (unknown) (unknown) 3.1 g/dl (unknown) (unknown) (no date) (unknown) (unknown) 34 mg/dl (unknown) (unknown) (no date) (unknown) (unknown) 34.3 (units unknown) (unknown) (unknown) (no date) (unknown) (unknown) 38 seconds (unknown) (unknown) (no date) (unknown) (unknown) 38 seconds (unknown) (unknown) (no date) (unknown) (unknown) 4.3 mmol/l (unknown) (unknown) (no date) (unknown) (unknown) 4.8 mmol/l (unknown) (unknown) (no date) (unknown) (unknown) 428 u/l (unknown) (unknown) (no date) (unknown) (unknown) 45 u/l (unknown) (unknown) (no date) (unknown) (unknown) 5.8 g/dl (unknown) (unknown) (no date) (unknown) (unknown) 53 u/l (unknown) (unknown) (no date) (unknown) (unknown) 61 iu/l (unknown) (unknown) (no date) (unknown) (unknown) 63 iu/l (unknown) (unknown) (no date) (unknown) (unknown) 8.1 mg/dl (unknown) (unknown) (no date) (unknown) (unknown) 99 mmol/l (unknown) (unknown) (no date) (unknown) (unknown) Test not performed % (unknown) (unknown) (no date) (unknown) (unknown) Test not performed % (unknown) (unknown) (no date) (unknown) (unknown) Test not performed ng/ml (unknown) (unknown) (no date) (unknown) (unknown) Test not performed ng/ml (unknown) Result panel 192 (unknown) (no date) (unknown) (unknown) 4.3 mmol/l (unknown) (unknown) (no date) (unknown) (unknown) 4.3 mmol/l (unknown) Result panel 193 (unknown) (no date) (unknown) (unknown) (no value) (units unknown) (unknown) (unknown) (no date) (unknown) (unknown) [id number] (units unknown) (unknown) (unknown) (no date) (unknown) (unknown) 06/16/22 (units unknown) (unknown) (unknown) (no date) (unknown) (unknown) [address] [place] [address] (units unknown) (unknown) (unknown) (no date) (unknown) (unknown) Accession Number: [id number] (units unknown) (unknown) (unknown) (no date) (unknown) (unknown) Age/Sex: 86 / M Date of Service: (units unknown) (unknown) (unknown) (no date) (unknown) (unknown) [place] [address] (units unknown) (unknown) (unknown) (no date) (unknown) (unknown) Approved by: Brandyn Davis M.D. on 06/16/2022 at 14:54 (units unknown) (unknown) (unknown) (no date) (unknown) (unknown) Brain: No intracranial hemorrhage. Amaro-white differentiation is grossly (units unknown) (unknown) (unknown) (no date) (unknown) (unknown) COMPARISON: None. (units unknown) (unknown) (unknown) (no date) (unknown) (unknown) CSF spaces: Basal cisterns are patent. Lateral ventricles are symmetric. (units unknown) (unknown) (unknown) (no date) (unknown) (unknown) CT Scan Report (units unknown) (unknown) (unknown) (no date) (unknown) (unknown) Craniofacial structures: No displaced fracture. Sinuses are clear. Orbits are (units unknown) (unknown) (unknown) (no date) (unknown) (unknown) : 1935 Acct:[id number] (units unknown) (unknown) (unknown) (no date) (unknown) (unknown) Dictated by: Brandyn Davis M.D. on 06/16/2022 at 14:52 (units unknown) (unknown) (unknown) (no date) (unknown) (unknown) FINDINGS: (units unknown) (unknown) (unknown) (no date) (unknown) (unknown) IMPRESSION: No acute intracranial abnormality. If there is concern for (units unknown) (unknown) (unknown) (no date) (unknown) (unknown) INDICATIONS: altered mental status (units unknown) (unknown) (unknown) (no date) (unknown) (unknown) Image quality: Good (units unknown) (unknown) (unknown) (no date) (unknown) (unknown) [facility] (units unknown) (unknown) (unknown) (no date) (unknown) (unknown) Loc: ED (units unknown) (unknown) (unknown) (no date) (unknown) (unknown) Noncontrast 4.5 mm thick angled axial sections acquired from the foramen magnum (units unknown) (unknown) (unknown) (no date) (unknown) (unknown) Ordering Provider: Matt Swartz MD (units unknown) (unknown) (unknown) (no date) (unknown) (unknown) PROCEDURE: CT HEAD/BRAIN WO CON (units unknown) (unknown) (unknown) (no date) (unknown) (unknown) Patient: Yoseph Cardoso MR#: [id number] (units unknown) (unknown) (unknown) (no date) (unknown) (unknown) Procedure: CT head/brain wo con (units unknown) (unknown) (unknown) (no date) (unknown) (unknown) Signed (units unknown) (unknown) (unknown) (no date) (unknown) (unknown) TECHNIQUE: (units unknown) (unknown) (unknown) (no date) (unknown) (unknown) Volume: Vascular calcifications. Periventricular white matter disease is (units unknown) (unknown) (unknown) (no date) (unknown) (unknown) commonly seen (units unknown) (unknown) (unknown) (no date) (unknown) (unknown) following (units unknown) (unknown) (unknown) (no date) (unknown) (unknown) intact. (units unknown) (unknown) (unknown) (no date) (unknown) (unknown) maintained. (units unknown) (unknown) (unknown) (no date) (unknown) (unknown) moderate (units unknown) (unknown) (unknown) (no date) (unknown) (unknown) parenchymal (units unknown) (unknown) (unknown) (no date) (unknown) (unknown) pathology, consider MRI. (units unknown) (unknown) (unknown) (no date) (unknown) (unknown) patient (units unknown) (unknown) (unknown) (no date) (unknown) (unknown) size. (units unknown) (unknown) (unknown) (no date) (unknown) (unknown) to the (units unknown) (unknown) (unknown) (no date) (unknown) (unknown) vertex, with coronal and sagittal reformats. For radiation dose reduction, the (units unknown) (unknown) (unknown) (no date) (unknown) (unknown) was used: automated exposure control, adjustment of mA and/or kV according to (units unknown) (unknown) (unknown) (no date) (unknown) (unknown) with chronic microangiopathy. Volume loss is present. These findings are (units unknown) (unknown) Result panel 194 (unknown) (no date) (unknown) (unknown) > 60 ml/min (unknown) (unknown) (no date) (unknown) (unknown) > 60 ml/min (unknown) (unknown) (no date) (unknown) (unknown) < 0.012 ng/ml (unknown) (unknown) (no date) (unknown) (unknown) < 0.012 ng/ml (unknown) (unknown) (no date) (unknown) (unknown) 0.99 mg/dl (unknown) (unknown) (no date) (unknown) (unknown) 1.1 (units unknown) (unknown) (unknown) (no date) (unknown) (unknown) 135 mmol/l (unknown) (unknown) (no date) (unknown) (unknown) 1430 pg/ml (unknown) (unknown) (no date) (unknown) (unknown) 1430 pg/ml (unknown) (unknown) (no date) (unknown) (unknown) 146 mg/dl (unknown) (unknown) (no date) (unknown) (unknown) 146 mg/dl (unknown) (unknown) (no date) (unknown) (unknown) 2.1 mg/dl (unknown) (unknown) (no date) (unknown) (unknown) 2.7 g/dl (unknown) (unknown) (no date) (unknown) (unknown) 28 mmol/l (unknown) (unknown) (no date) (unknown) (unknown) 3.1 g/dl (unknown) (unknown) (no date) (unknown) (unknown) 34 mg/dl (unknown) (unknown) (no date) (unknown) (unknown) 34.3 (units unknown) (unknown) (unknown) (no date) (unknown) (unknown) 4.8 mmol/l (unknown) (unknown) (no date) (unknown) (unknown) 428 u/l (unknown) (unknown) (no date) (unknown) (unknown) 45 u/l (unknown) (unknown) (no date) (unknown) (unknown) 5.8 g/dl (unknown) (unknown) (no date) (unknown) (unknown) 53 u/l (unknown) (unknown) (no date) (unknown) (unknown) 61 iu/l (unknown) (unknown) (no date) (unknown) (unknown) 63 iu/l (unknown) (unknown) (no date) (unknown) (unknown) 8.1 mg/dl (unknown) (unknown) (no date) (unknown) (unknown) 99 mmol/l (unknown) (unknown) (no date) (unknown) (unknown) Test not performed % (unknown) (unknown) (no date) (unknown) (unknown) Test not performed % (unknown) (unknown) (no date) (unknown) (unknown) Test not performed ng/ml (unknown) (unknown) (no date) (unknown) (unknown) Test not performed ng/ml (unknown) Result panel 195 (unknown) (no date) (unknown) (unknown) > 60 ml/min (unknown) (unknown) (no date) (unknown) (unknown) > 60 ml/min (unknown) (unknown) (no date) (unknown) (unknown) < 0.012 ng/ml (unknown) (unknown) (no date) (unknown) (unknown) < 0.012 ng/ml (unknown) (unknown) (no date) (unknown) (unknown) 0.99 mg/dl (unknown) (unknown) (no date) (unknown) (unknown) 1.1 (units unknown) (unknown) (unknown) (no date) (unknown) (unknown) 135 mmol/l (unknown) (unknown) (no date) (unknown) (unknown) 1430 pg/ml (unknown) (unknown) (no date) (unknown) (unknown) 1430 pg/ml (unknown) (unknown) (no date) (unknown) (unknown) 146 mg/dl (unknown) (unknown) (no date) (unknown) (unknown) 146 mg/dl (unknown) (unknown) (no date) (unknown) (unknown) 2.1 mg/dl (unknown) (unknown) (no date) (unknown) (unknown) 2.7 g/dl (unknown) (unknown) (no date) (unknown) (unknown) 28 mmol/l (unknown) (unknown) (no date) (unknown) (unknown) 3.1 g/dl (unknown) (unknown) (no date) (unknown) (unknown) 3.27 ng/ml (unknown) (unknown) (no date) (unknown) (unknown) 3.27 ng/ml (unknown) (unknown) (no date) (unknown) (unknown) 34 mg/dl (unknown) (unknown) (no date) (unknown) (unknown) 34.3 (units unknown) (unknown) (unknown) (no date) (unknown) (unknown) 4.8 mmol/l (unknown) (unknown) (no date) (unknown) (unknown) 428 u/l (unknown) (unknown) (no date) (unknown) (unknown) 45 u/l (unknown) (unknown) (no date) (unknown) (unknown) 5.8 g/dl (unknown) (unknown) (no date) (unknown) (unknown) 53 u/l (unknown) (unknown) (no date) (unknown) (unknown) 61 iu/l (unknown) (unknown) (no date) (unknown) (unknown) 63 iu/l (unknown) (unknown) (no date) (unknown) (unknown) 8.1 mg/dl (unknown) (unknown) (no date) (unknown) (unknown) 99 mmol/l (unknown) (unknown) (no date) (unknown) (unknown) Test not performed % (unknown) (unknown) (no date) (unknown) (unknown) Test not performed % (unknown) (unknown) (no date) (unknown) (unknown) Test not performed ng/ml (unknown) (unknown) (no date) (unknown) (unknown) Test not performed ng/ml (unknown) Result panel 196 (unknown) (no date) (unknown) (unknown) (no value) (units unknown) (unknown) (unknown) (no date) (unknown) (unknown) [id number] (units unknown) (unknown) (unknown) (no date) (unknown) (unknown) 06/16/22 (units unknown) (unknown) (unknown) (no date) (unknown) (unknown) [address] [place] [address] (units unknown) (unknown) (unknown) (no date) (unknown) (unknown) Accession Number: [id number] (units unknown) (unknown) (unknown) (no date) (unknown) (unknown) After the administration of intravenous contrast, 5 mm thick sections acquired (units unknown) (unknown) (unknown) (no date) (unknown) (unknown) Age/Sex: 86 / M Date of Service: (units unknown) (unknown) (unknown) (no date) (unknown) (unknown) [place] [address] (units unknown) (unknown) (unknown) (no date) (unknown) (unknown) Approved by: Brandyn Davis M.D. on 06/16/2022 at 14:52 (units unknown) (unknown) (unknown) (no date) (unknown) (unknown) Bones: No acute or suspicious osseous abnormality. (units unknown) (unknown) (unknown) (no date) (unknown) (unknown) COMPARISON: [facility], CR, XR CHEST 1V, 06/16/2022, 12:43. (units unknown) (unknown) (unknown) (no date) (unknown) (unknown) CT Scan Report (units unknown) (unknown) (unknown) (no date) (unknown) (unknown) Chest wall and thyroid: Unremarkable (units unknown) (unknown) (unknown) (no date) (unknown) (unknown) : 1935 Acct:[id number] (units unknown) (unknown) (unknown) (no date) (unknown) (unknown) Dictated by: Brandyn Davis M.D. on 06/16/2022 at 14:48 (units unknown) (unknown) (unknown) (no date) (unknown) (unknown) FINDINGS: (units unknown) (unknown) (unknown) (no date) (unknown) (unknown) IMPRESSION: Bibasilar infectious or inflammatory pulmonary opacities. (units unknown) (unknown) (unknown) (no date) (unknown) (unknown) INDICATIONS: chest pain (units unknown) (unknown) (unknown) (no date) (unknown) (unknown) Image quality: Good (units unknown) (unknown) (unknown) (no date) (unknown) (unknown) [facility] (units unknown) (unknown) (unknown) (no date) (unknown) (unknown) Loc: ED (units unknown) (unknown) (unknown) (no date) (unknown) (unknown) Lungs and pleura: Bilateral [id number] pleural effusions, slightly (units unknown) (unknown) (unknown) (no date) (unknown) (unknown) Mediastinum, heart, and esophagus: No hiatal hernia. Left chest wall pulse (units unknown) (unknown) (unknown) (no date) (unknown) (unknown) [id number], (units unknown) (unknown) (unknown) (no date) (unknown) (unknown) Ordering Provider: Matt Swartz MD (units unknown) (unknown) (unknown) (no date) (unknown) (unknown) Other findings as above. Of note, the liver and spleen are significantly (units unknown) (unknown) (unknown) (no date) (unknown) (unknown) PROCEDURE: CT CHEST W CON (units unknown) (unknown) (unknown) (no date) (unknown) (unknown) Patient: Yoseph Cardoso MR#: [id number] (units unknown) (unknown) (unknown) (no date) (unknown) (unknown) Procedure: CT chest w con (units unknown) (unknown) (unknown) (no date) (unknown) (unknown) Signed (units unknown) (unknown) (unknown) (no date) (unknown) (unknown) TECHNIQUE: (units unknown) (unknown) (unknown) (no date) (unknown) (unknown) There is also heterogeneous appearance of the spleen. (units unknown) (unknown) (unknown) (no date) (unknown) (unknown) Upper abdomen: Heterogeneous appearance of the liver, not well evaluated on (units unknown) (unknown) (unknown) (no date) (unknown) (unknown) assess for resolution. (units unknown) (unknown) (unknown) (no date) (unknown) (unknown) consider nonemergent MRI if necessary. (units unknown) (unknown) (unknown) (no date) (unknown) (unknown) coronal and sagittal reformats and 7 mm axial MIP were acquired. For radiation (units unknown) (unknown) (unknown) (no date) (unknown) (unknown) criteria. (units unknown) (unknown) (unknown) (no date) (unknown) (unknown) dose (units unknown) (unknown) (unknown) (no date) (unknown) (unknown) from the (units unknown) (unknown) (unknown) (no date) (unknown) (unknown) generator (units unknown) (unknown) (unknown) (no date) (unknown) (unknown) greater on the (units unknown) (unknown) (unknown) (no date) (unknown) (unknown) heterogeneous (units unknown) (unknown) (unknown) (no date) (unknown) (unknown) history, and (units unknown) (unknown) (unknown) (no date) (unknown) (unknown) kV according to patient size. (units unknown) (unknown) (unknown) (no date) (unknown) (unknown) mA and/or (units unknown) (unknown) (unknown) (no date) (unknown) (unknown) pulmonary apices to the posterior costophrenic angles. 1 mm axial lung, 5 mm (units unknown) (unknown) (unknown) (no date) (unknown) (unknown) reduction, the following was used: automated exposure control, adjustment of (units unknown) (unknown) (unknown) (no date) (unknown) (unknown) right greater than left pleural effusions. Consider future imaging (units unknown) (unknown) (unknown) (no date) (unknown) (unknown) right. Bibasilar opacities and nodularity also present. (units unknown) (unknown) (unknown) (no date) (unknown) (unknown) size (units unknown) (unknown) (unknown) (no date) (unknown) (unknown) surveillance to (units unknown) (unknown) (unknown) (no date) (unknown) (unknown) thick (units unknown) (unknown) (unknown) (no date) (unknown) (unknown) this study. (units unknown) (unknown) (unknown) (no date) (unknown) (unknown) which may be related to liver disease. Please correlate with LFTs, clinical (units unknown) (unknown) (unknown) (no date) (unknown) (unknown) with electrode leads. Coronary calcifications. No pathologic adenopathy by (units unknown) (unknown) Result panel 197 (unknown) (no date) (unknown) (unknown) Flu A NEGATIVE (units unknown) (unknown) (unknown) (no date) (unknown) (unknown) Flu B NEGATIVE (units unknown) (unknown) (unknown) (no date) (unknown) (unknown) Negative (units unknown) (unknown) (unknown) (no date) (unknown) (unknown) Negative (units unknown) (unknown) Result panel 198 (unknown) (no date) (unknown) (unknown) (no value) (units unknown) (unknown) (unknown) (no date) (unknown) (unknown) [id number] (units unknown) (unknown) (unknown) (no date) (unknown) (unknown) 06/16/22 06/16/22 06/16/22 Range/Units (units unknown) (unknown) (unknown) (no date) (unknown) (unknown) 06/16/22 06/16/22 Range/Units (units unknown) (unknown) (unknown) (no date) (unknown) (unknown) 06/16/22 12:35 (units unknown) (unknown) (unknown) (no date) (unknown) (unknown) 06/16/22 12:45 (units unknown) (unknown) (unknown) (no date) (unknown) (unknown) 06/16/22 13:01 (units unknown) (unknown) (unknown) (no date) (unknown) (unknown) 06/16/22 13:13 (units unknown) (unknown) (unknown) (no date) (unknown) (unknown) 06/16/22 13:24 (units unknown) (unknown) (unknown) (no date) (unknown) (unknown) 06/16/22 13:32 (units unknown) (unknown) (unknown) (no date) (unknown) (unknown) 06/16/22 (units unknown) (unknown) (unknown) (no date) (unknown) (unknown) 12:21 06/16/22 (units unknown) (unknown) (unknown) (no date) (unknown) (unknown) 12:30 06/16/22 (units unknown) (unknown) (unknown) (no date) (unknown) (unknown) 12:30 (units unknown) (unknown) (unknown) (no date) (unknown) (unknown) 12:35 12:35 12:35 (units unknown) (unknown) (unknown) (no date) (unknown) (unknown) 12:35 12:35 (units unknown) (unknown) (unknown) (no date) (unknown) (unknown) 12:45 06/16/22 (units unknown) (unknown) (unknown) (no date) (unknown) (unknown) 13:00 06/16/22 (units unknown) (unknown) (unknown) (no date) (unknown) (unknown) 13:00 (units unknown) (unknown) (unknown) (no date) (unknown) (unknown) 13:15 06/16/22 (units unknown) (unknown) (unknown) (no date) (unknown) (unknown) 13:15 (units unknown) (unknown) (unknown) (no date) (unknown) (unknown) 13:30 06/16/22 (units unknown) (unknown) (unknown) (no date) (unknown) (unknown) 13:45 06/16/22 (units unknown) (unknown) (unknown) (no date) (unknown) (unknown) 13:46 (units unknown) (unknown) (unknown) (no date) (unknown) (unknown) 4 mos (units unknown) (unknown) (unknown) (no date) (unknown) (unknown) 72 (units unknown) (unknown) (unknown) (no date) (unknown) (unknown) ALT (<50) IU/L (units unknown) (unknown) (unknown) (no date) (unknown) (unknown) ALT 63 H (<50) IU/L (units unknown) (unknown) (unknown) (no date) (unknown) (unknown) APTT (26-36) SECONDS (units unknown) (unknown) (unknown) (no date) (unknown) (unknown) APTT 38 H (26-36) SECONDS (units unknown) (unknown) (unknown) (no date) (unknown) (unknown) AST (17-59) IU/L (units unknown) (unknown) (unknown) (no date) (unknown) (unknown) AST 61 H (17-59) IU/L (units unknown) (unknown) (unknown) (no date) (unknown) (unknown) After history and exam CT head CT chest CBC CMP BNP troponin procalcitonin (units unknown) (unknown) (unknown) (no date) (unknown) (unknown) Age/Sex: 86 / M (units unknown) (unknown) (unknown) (no date) (unknown) (unknown) Albumin (3.5-5.0) g/dL (units unknown) (unknown) (unknown) (no date) (unknown) (unknown) Albumin 3.1 L (3.5-5.0) g/dL (units unknown) (unknown) (unknown) (no date) (unknown) (unknown) Albumin/Globulin Ratio (1.0-2.8) (units unknown) (unknown) (unknown) (no date) (unknown) (unknown) Albumin/Globulin Ratio 1.1 (1.0-2.8) (units unknown) (unknown) (unknown) (no date) (unknown) (unknown) Alkaline Phosphatase (38-126) U/L (units unknown) (unknown) (unknown) (no date) (unknown) (unknown) Alkaline Phosphatase 428 H (38-126) U/L (units unknown) (unknown) (unknown) (no date) (unknown) (unknown) Allergies (units unknown) (unknown) (unknown) (no date) (unknown) (unknown) Allergy/AdvReac Type Severity Reaction Status Date / Time (units unknown) (unknown) (unknown) (no date) (unknown) (unknown) BACK: No flank tenderness. (units unknown) (unknown) (unknown) (no date) (unknown) (unknown) BNP [NT-proBNP (BNP-Adult 18+)] Stat (units unknown) (unknown) (unknown) (no date) (unknown) (unknown) BUN (9-20) mg/dL (units unknown) (unknown) (unknown) (no date) (unknown) (unknown) BUN 34 H (9-20) mg/dL (units unknown) (unknown) (unknown) (no date) (unknown) (unknown) BUN/Creatinine Ratio (6-22) (units unknown) (unknown) (unknown) (no date) (unknown) (unknown) BUN/Creatinine Ratio 34.3 H (6-22) (units unknown) (unknown) (unknown) (no date) (unknown) (unknown) Baso # (Auto) (0-100) /uL (units unknown) (unknown) (unknown) (no date) (unknown) (unknown) Baso # (Auto) 100 (0-100) /uL (units unknown) (unknown) (unknown) (no date) (unknown) (unknown) Baso % (Auto) (0-2) % (units unknown) (unknown) (unknown) (no date) (unknown) (unknown) Baso % (Auto) 0.8 (0-2) % (units unknown) (unknown) (unknown) (no date) (unknown) (unknown) Blood Culture Stat (units unknown) (unknown) (unknown) (no date) (unknown) (unknown) Blood Pressure 134/61 141/67 H (units unknown) (unknown) (unknown) (no date) (unknown) (unknown) Blood Pressure 141/57 H (units unknown) (unknown) (unknown) (no date) (unknown) (unknown) Blood Pressure 142/67 H (units unknown) (unknown) (unknown) (no date) (unknown) (unknown) Blood Pressure 144/68 H 06/16/22 12:21 (units unknown) (unknown) (unknown) (no date) (unknown) (unknown) Blood Pressure 144/68 H 144/68 H (units unknown) (unknown) (unknown) (no date) (unknown) (unknown) Blood Pressure (units unknown) (unknown) (unknown) (no date) (unknown) (unknown) CARDIOVASCULAR: Regular rate and rhythm without murmurs (units unknown) (unknown) (unknown) (no date) (unknown) (unknown) CARDIOVASCULAR: negative chest pain, palpitations (units unknown) (unknown) (unknown) (no date) (unknown) (unknown) CC: Weakness weight loss night sweats (units unknown) (unknown) (unknown) (no date) (unknown) (unknown) CK-MB (CK-2) Rel Index TNP (units unknown) (unknown) (unknown) (no date) (unknown) (unknown) CK-MB (CK-2) Rel Index (units unknown) (unknown) (unknown) (no date) (unknown) (unknown) CK-MB (CK-2) TNP (units unknown) (unknown) (unknown) (no date) (unknown) (unknown) CK-MB (CK-2) (units unknown) (unknown) (unknown) (no date) (unknown) (unknown) CT chest w con Stat (units unknown) (unknown) (unknown) (no date) (unknown) (unknown) CT head/brain wo con Stat (units unknown) (unknown) (unknown) (no date) (unknown) (unknown) Calcium (8.4-10.2) mg/dL (units unknown) (unknown) (unknown) (no date) (unknown) (unknown) Calcium 8.1 L (8.4-10.2) mg/dL (units unknown) (unknown) (unknown) (no date) (unknown) (unknown) Carbon Dioxide (22-32) mmol/L (units unknown) (unknown) (unknown) (no date) (unknown) (unknown) Carbon Dioxide 28 (22-32) mmol/L (units unknown) (unknown) (unknown) (no date) (unknown) (unknown) Chief complaint: Weakness (units unknown) (unknown) (unknown) (no date) (unknown) (unknown) Chloride (98-107) mmol/L (units unknown) (unknown) (unknown) (no date) (unknown) (unknown) Chloride 99 (98-107) mmol/L (units unknown) (unknown) (unknown) (no date) (unknown) (unknown) Complete Blood Count AUTO DIFF Stat (units unknown) (unknown) (unknown) (no date) (unknown) (unknown) Complicating co-morbidities: History of melanoma (units unknown) (unknown) (unknown) (no date) (unknown) (unknown) Comprehensive Metabolic Panel Stat (units unknown) (unknown) (unknown) (no date) (unknown) (unknown) Consultations: (units unknown) (unknown) (unknown) (no date) (unknown) (unknown) Course (units unknown) (unknown) (unknown) (no date) (unknown) (unknown) Covid-19 + FLU A/B + RSV - PCR Stat (units unknown) (unknown) (unknown) (no date) (unknown) (unknown) Creatinine (0.66-1.25) mg/dL (units unknown) (unknown) (unknown) (no date) (unknown) (unknown) Creatinine 0.99 (0.66-1.25) mg/dL (units unknown) (unknown) (unknown) (no date) (unknown) (unknown) : 1935 Acct:[id number] (units unknown) (unknown) (unknown) (no date) (unknown) (unknown) 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 (units unknown) (unknown) (unknown) (no date) (unknown) (unknown) Date of Service: 06/16/22 (units unknown) (unknown) (unknown) (no date) (unknown) (unknown) Departure (units unknown) (unknown) (unknown) (no date) (unknown) (unknown) Diagnosis: (units unknown) (unknown) (unknown) (no date) (unknown) (unknown) Differential considered: Includes but not limited to neoplastic process, (units unknown) (unknown) (unknown) (no date) (unknown) (unknown) Discharge Plan (units unknown) (unknown) (unknown) (no date) (unknown) (unknown) Discontinued Medications (units unknown) (unknown) (unknown) (no date) (unknown) (unknown) Discussion: (units unknown) (unknown) (unknown) (no date) (unknown) (unknown) Documented By: RLS (units unknown) (unknown) (unknown) (no date) (unknown) (unknown) ED Orders (units unknown) (unknown) (unknown) (no date) (unknown) (unknown) EKG-12 Lead Stat (units unknown) (unknown) (unknown) (no date) (unknown) (unknown) ENT: Slightly dry lips and mucous membranes (units unknown) (unknown) (unknown) (no date) (unknown) (unknown) ER Physician: Matt Swartz MD (units unknown) (unknown) (unknown) (no date) (unknown) (unknown) EXTREMITIES: No gross deformities. (units unknown) (unknown) (unknown) (no date) (unknown) (unknown) EYES: Pupils equal round (units unknown) (unknown) (unknown) (no date) (unknown) (unknown) Emergency Report (units unknown) (unknown) (unknown) (no date) (unknown) (unknown) Eos # (Auto) (0-450) /uL (units unknown) (unknown) (unknown) (no date) (unknown) (unknown) Eos # (Auto) 0 (0-450) /uL (units unknown) (unknown) (unknown) (no date) (unknown) (unknown) Eos % (Auto) (2-4) % (units unknown) (unknown) (unknown) (no date) (unknown) (unknown) Eos % (Auto) 0.1 L (2-4) % (units unknown) (unknown) (unknown) (no date) (unknown) (unknown) Estimated GFR > 60 (>60) mL/min (units unknown) (unknown) (unknown) (no date) (unknown) (unknown) Estimated GFR (>60) mL/min (units unknown) (unknown) (unknown) (no date) (unknown) (unknown) Exam Narrative: (units unknown) (unknown) (unknown) (no date) (unknown) (unknown) Exam documented above, pertinent findings include: Cachectic-appearing dry (units unknown) (unknown) (unknown) (no date) (unknown) (unknown) Exam (units unknown) (unknown) (unknown) (no date) (unknown) (unknown) GASTROINTESTINAL: Abdomen soft, non-tender (units unknown) (unknown) (unknown) (no date) (unknown) (unknown) GASTROINTESTINAL: negative nausea, vomiting, abdominal pain (units unknown) (unknown) (unknown) (no date) (unknown) (unknown) GENERAL: in no distress, not toxic not dyspneic, is cachectic appearing (units unknown) (unknown) (unknown) (no date) (unknown) (unknown) GENERAL: negative chills, positive fatigue, malaise, dizzy negative fever, (units unknown) (unknown) (unknown) (no date) (unknown) (unknown) : negative dysuria, frequency, hematuria (units unknown) (unknown) (unknown) (no date) (unknown) (unknown) General (units unknown) (unknown) (unknown) (no date) (unknown) (unknown) Globulin (1.7-4.1) g/dL (units unknown) (unknown) (unknown) (no date) (unknown) (unknown) Globulin 2.7 (1.7-4.1) g/dL (units unknown) (unknown) (unknown) (no date) (unknown) (unknown) Glucose (80-110) mg/dL (units unknown) (unknown) (unknown) (no date) (unknown) (unknown) Glucose 146 H (80-110) mg/dL (units unknown) (unknown) (unknown) (no date) (unknown) (unknown) HEAD: Normocephalic. (units unknown) (unknown) (unknown) (no date) (unknown) (unknown) HEENT: negative sinus pain, ear pain, sore throat (units unknown) (unknown) (unknown) (no date) (unknown) (unknown) HPI - Weakness (units unknown) (unknown) (unknown) (no date) (unknown) (unknown) HPI Narrative: (units unknown) (unknown) (unknown) (no date) (unknown) (unknown) Hct (41-53) % (units unknown) (unknown) (unknown) (no date) (unknown) (unknown) Hct 46.6 (41-53) % (units unknown) (unknown) (unknown) (no date) (unknown) (unknown) Hgb (13.5-17.5) g/dL (units unknown) (unknown) (unknown) (no date) (unknown) (unknown) Hgb 15.4 (13.5-17.5) g/dL (units unknown) (unknown) (unknown) (no date) (unknown) (unknown) History of Present Illness (units unknown) (unknown) (unknown) (no date) (unknown) (unknown) Home Medications (units unknown) (unknown) (unknown) (no date) (unknown) (unknown) INR (0.9-1.3) (units unknown) (unknown) (unknown) (no date) (unknown) (unknown) INR 1.5 H (0.9-1.3) (units unknown) (unknown) (unknown) (no date) (unknown) (unknown) Imaging studies independently reviewed: Chest x-ray no acute process (units unknown) (unknown) (unknown) (no date) (unknown) (unknown) Independently reviewed EKG as above atrial sensed ventricular paced rhythm rate (units unknown) (unknown) (unknown) (no date) (unknown) (unknown) Influenza A (RT-PCR) (NEGATIVE) (units unknown) (unknown) (unknown) (no date) (unknown) (unknown) Influenza A (RT-PCR) Flu a negative (NEGATIVE) (units unknown) (unknown) (unknown) (no date) (unknown) (unknown) Influenza B (RT-PCR) (NEGATIVE) (units unknown) (unknown) (unknown) (no date) (unknown) (unknown) Influenza B (RT-PCR) Flu b negative (NEGATIVE) (units unknown) (unknown) (unknown) (no date) (unknown) (unknown) Initial Vital Signs (units unknown) (unknown) (unknown) (no date) (unknown) (unknown) Initial Vital Signs: (units unknown) (unknown) (unknown) (no date) (unknown) (unknown) [address] [address] (units unknown) (unknown) (unknown) (no date) (unknown) (unknown) Lab Data (units unknown) (unknown) (unknown) (no date) (unknown) (unknown) Lab Results (units unknown) (unknown) (unknown) (no date) (unknown) (unknown) Lab Test results independently reviewed as above. Pertinent findings: WBC 9.6 (units unknown) (unknown) (unknown) (no date) (unknown) (unknown) Labs: (units unknown) (unknown) (unknown) (no date) (unknown) (unknown) Lactate (0.7-2.1) mmol/L (units unknown) (unknown) (unknown) (no date) (unknown) (unknown) Lactate (Lactic Acid) Stat (units unknown) (unknown) (unknown) (no date) (unknown) (unknown) Lactate 4.3 H* (0.7-2.1) mmol/L (units unknown) (unknown) (unknown) (no date) (unknown) (unknown) Lucien Lan MD [Primary Care Provider] (units unknown) (unknown) (unknown) (no date) (unknown) (unknown) Last Admin: 06/16/22 13:02 Dose: 1,000 mls/hr (units unknown) (unknown) (unknown) (no date) (unknown) (unknown) Lipase (23-300) U/L (units unknown) (unknown) (unknown) (no date) (unknown) (unknown) Lipase 45 (23-300) U/L (units unknown) (unknown) (unknown) (no date) (unknown) (unknown) Lipase Stat (units unknown) (unknown) (unknown) (no date) (unknown) (unknown) Lymph # (Auto) (4476-7937) /uL (units unknown) (unknown) (unknown) (no date) (unknown) (unknown) Lymph # (Auto) 400 L (7517-7878) /uL (units unknown) (unknown) (unknown) (no date) (unknown) (unknown) Lymph % (Auto) (25-40) % (units unknown) (unknown) (unknown) (no date) (unknown) (unknown) Lymph % (Auto) 4.6 L (25-40) % (units unknown) (unknown) (unknown) (no date) (unknown) (unknown) MCH (26-34) PG (units unknown) (unknown) (unknown) (no date) (unknown) (unknown) MCH 30.4 (26-34) PG (units unknown) (unknown) (unknown) (no date) (unknown) (unknown) MCHC (30-36) % (units unknown) (unknown) (unknown) (no date) (unknown) (unknown) MCHC 33.0 (30-36) % (units unknown) (unknown) (unknown) (no date) (unknown) (unknown) MCV (80-100) fL (units unknown) (unknown) (unknown) (no date) (unknown) (unknown) MCV 92.4 (80-100) fL (units unknown) (unknown) (unknown) (no date) (unknown) (unknown) MDM - Weakness (units unknown) (unknown) (unknown) (no date) (unknown) (unknown) MDM Narrative (units unknown) (unknown) (unknown) (no date) (unknown) (unknown) MDM (units unknown) (unknown) (unknown) (no date) (unknown) (unknown) MUSCULOSKELETAL: negative muscle or bony pain (units unknown) (unknown) (unknown) (no date) (unknown) (unknown) Medical decision making narrative: (units unknown) (unknown) (unknown) (no date) (unknown) (unknown) Medical records reviewed: ER visits from a few days ago (units unknown) (unknown) (unknown) (no date) (unknown) (unknown) Medication Instructions Recorded Confirmed (units unknown) (unknown) (unknown) (no date) (unknown) (unknown) Mode of arrival: Wheelchair (units unknown) (unknown) (unknown) (no date) (unknown) (unknown) [place] # (Auto) (0-900) /uL (units unknown) (unknown) (unknown) (no date) (unknown) (unknown) [place] # (Auto) 900 (0-900) /uL (units unknown) (unknown) (unknown) (no date) (unknown) (unknown) [place] % (Auto) (3-14) % (units unknown) (unknown) (unknown) (no date) (unknown) (unknown) [place] % (Auto) 9.4 (3-14) % (units unknown) (unknown) (unknown) (no date) (unknown) (unknown) NECK: Trachea midline. (units unknown) (unknown) (unknown) (no date) (unknown) (unknown) NEURO: AOx4. Clear speech no facial droop light touch intact to bilateral face (units unknown) (unknown) (unknown) (no date) (unknown) (unknown) NEUROLOGIC: negative weakness, numbness (units unknown) (unknown) (unknown) (no date) (unknown) (unknown) NT-Pro-B Natriuret Pep (<450) pg/mL (units unknown) (unknown) (unknown) (no date) (unknown) (unknown) NT-Pro-B Natriuret Pep 1430 H (<450) pg/mL (units unknown) (unknown) (unknown) (no date) (unknown) (unknown) Narrative (units unknown) (unknown) (unknown) (no date) (unknown) (unknown) Narrative: (units unknown) (unknown) (unknown) (no date) (unknown) (unknown) Neut # (Auto) (8318-4496) /uL (units unknown) (unknown) (unknown) (no date) (unknown) (unknown) Neut # (Auto) 8200 H (7385-5411) /uL (units unknown) (unknown) (unknown) (no date) (unknown) (unknown) Neut % (Auto) (50-75) % (units unknown) (unknown) (unknown) (no date) (unknown) (unknown) Neut % (Auto) 85.1 H (50-75) % (units unknown) (unknown) (unknown) (no date) (unknown) (unknown) No Action (units unknown) (unknown) (unknown) (no date) (unknown) (unknown) No Known Home Medications 12/20/20 12/20/20 (units unknown) (unknown) (unknown) (no date) (unknown) (unknown) No Known Home Medications (units unknown) (unknown) (unknown) (no date) (unknown) (unknown) Ondansetron HCl (Ondansetron 4 Mg/2 Ml Inj) 4 mg IV NOW PRN (units unknown) (unknown) (unknown) (no date) (unknown) (unknown) Ordered: (units unknown) (unknown) (unknown) (no date) (unknown) (unknown) Orders (units unknown) (unknown) (unknown) (no date) (unknown) (unknown) Oxygen Delivery Method 06/16/22 12:21 (units unknown) (unknown) (unknown) (no date) (unknown) (unknown) Oxygen Delivery Method Room Air (units unknown) (unknown) (unknown) (no date) (unknown) (unknown) Oxygen Delivery Method (units unknown) (unknown) (unknown) (no date) (unknown) (unknown) PRN Reason: Nausea And Vomiting (units unknown) (unknown) (unknown) (no date) (unknown) (unknown) PSYCH: Not anxious, is cooperative (units unknown) (unknown) (unknown) (no date) (unknown) (unknown) PT (10.1-12.7) SECONDS (units unknown) (unknown) (unknown) (no date) (unknown) (unknown) PT 17.6 H (10.1-12.7) SECONDS (units unknown) (unknown) (unknown) (no date) (unknown) (unknown) Partial Thromboplastin Time Stat (units unknown) (unknown) (unknown) (no date) (unknown) (unknown) Patient History (units unknown) (unknown) (unknown) (no date) (unknown) (unknown) Patient brought in by from Cardiology office for routine office visit. I (units unknown) (unknown) (unknown) (no date) (unknown) (unknown) Patient: Yoseph Cardoso MR#: [id number] (units unknown) (unknown) (unknown) (no date) (unknown) (unknown) Plt Count (150-400) X103/uL (units unknown) (unknown) (unknown) (no date) (unknown) (unknown) Plt Count 222 (150-400) X103/uL (units unknown) (unknown) (unknown) (no date) (unknown) (unknown) Potassium (3.4-5.1) mmol/L (units unknown) (unknown) (unknown) (no date) (unknown) (unknown) Potassium 4.8 (3.4-5.1) mmol/L (units unknown) (unknown) (unknown) (no date) (unknown) (unknown) Prescriptions: (units unknown) (unknown) (unknown) (no date) (unknown) (unknown) Procalcitonin (<0.5) ng/mL (units unknown) (unknown) (unknown) (no date) (unknown) (unknown) Procalcitonin 3.27 H (<0.5) ng/mL (units unknown) (unknown) (unknown) (no date) (unknown) (unknown) Procalcitonin Stat (units unknown) (unknown) (unknown) (no date) (unknown) (unknown) Prothrombin Time INR Stat (units unknown) (unknown) (unknown) (no date) (unknown) (unknown) Pulse Oximetry 100 (units unknown) (unknown) (unknown) (no date) (unknown) (unknown) Pulse Oximetry 91 93 (units unknown) (unknown) (unknown) (no date) (unknown) (unknown) Pulse Oximetry 96 96 (units unknown) (unknown) (unknown) (no date) (unknown) (unknown) Pulse Oximetry 98 06/16/22 12:21 (units unknown) (unknown) (unknown) (no date) (unknown) (unknown) Pulse Oximetry 98 93 (units unknown) (unknown) (unknown) (no date) (unknown) (unknown) Pulse Oximetry 98 (units unknown) (unknown) (unknown) (no date) (unknown) (unknown) Pulse Rate 70 72 (units unknown) (unknown) (unknown) (no date) (unknown) (unknown) Pulse Rate 71 (units unknown) (unknown) (unknown) (no date) (unknown) (unknown) Pulse Rate 73 75 (units unknown) (unknown) (unknown) (no date) (unknown) (unknown) Pulse Rate 76 (units unknown) (unknown) (unknown) (no date) (unknown) (unknown) Pulse Rate 78 06/16/22 12:21 (units unknown) (unknown) (unknown) (no date) (unknown) (unknown) Pulse Rate 78 79 (units unknown) (unknown) (unknown) (no date) (unknown) (unknown) RBC (4.5-5.9) X106/uL (units unknown) (unknown) (unknown) (no date) (unknown) (unknown) RBC 5.05 (4.5-5.9) X106/uL (units unknown) (unknown) (unknown) (no date) (unknown) (unknown) RDW (11.6-14.8) % (units unknown) (unknown) (unknown) (no date) (unknown) (unknown) RDW 14.4 (11.6-14.8) % (units unknown) (unknown) (unknown) (no date) (unknown) (unknown) RESPIRATORY: Clear to auscultation. Breath sounds equal bilaterally. No wheezes, (units unknown) (unknown) (unknown) (no date) (unknown) (unknown) RESPIRATORY: negative dyspnea, cough (units unknown) (unknown) (unknown) (no date) (unknown) (unknown) ROS Unobtainable: All systems reviewed + are unremarkable except as noted in HPI (units unknown) (unknown) (unknown) (no date) (unknown) (unknown) RSV (PCR) (Negative) (units unknown) (unknown) (unknown) (no date) (unknown) (unknown) RSV (PCR) Negative (Negative) (units unknown) (unknown) (unknown) (no date) (unknown) (unknown) RT Consult Eval and Treat NOW (units unknown) (unknown) (unknown) (no date) (unknown) (unknown) Re-evaluations: (units unknown) (unknown) (unknown) (no date) (unknown) (unknown) Referrals: (units unknown) (unknown) (unknown) (no date) (unknown) (unknown) Related Data (units unknown) (unknown) (unknown) (no date) (unknown) (unknown) Respiratory Rate 17 16 (units unknown) (unknown) (unknown) (no date) (unknown) (unknown) Respiratory Rate 20 (units unknown) (unknown) (unknown) (no date) (unknown) (unknown) Respiratory Rate 22 06/16/22 12:21 (units unknown) (unknown) (unknown) (no date) (unknown) (unknown) Respiratory Rate 22 14 (units unknown) (unknown) (unknown) (no date) (unknown) (unknown) Respiratory Rate 22 (units unknown) (unknown) (unknown) (no date) (unknown) (unknown) Review of Systems (units unknown) (unknown) (unknown) (no date) (unknown) (unknown) SARS-CoV-2 (PCR) (Negative) (units unknown) (unknown) (unknown) (no date) (unknown) (unknown) SARS-CoV-2 (PCR) Negative (Negative) (units unknown) (unknown) (unknown) (no date) (unknown) (unknown) SKIN: Warm and dry (units unknown) (unknown) (unknown) (no date) (unknown) (unknown) SKIN: negative rash, skin lesions (units unknown) (unknown) (unknown) (no date) (unknown) (unknown) Signed By: (units unknown) (unknown) (unknown) (no date) (unknown) (unknown) Smoking Status: Smoker, status unknown (units unknown) (unknown) (unknown) (no date) (unknown) (unknown) Social History (units unknown) (unknown) (unknown) (no date) (unknown) (unknown) Sodium (137-145) mmol/L (units unknown) (unknown) (unknown) (no date) (unknown) (unknown) Sodium 135 L (137-145) mmol/L (units unknown) (unknown) (unknown) (no date) (unknown) (unknown) Sodium Chloride (Normal Saline 0.9%) 1,000 mls @ 1,000 mls/hr IV BOLUS ONE (units unknown) (unknown) (unknown) (no date) (unknown) (unknown) Source: patient and family (units unknown) (unknown) (unknown) (no date) (unknown) (unknown) Stated complaint: Pain near pacemaker (units unknown) (unknown) (unknown) (no date) (unknown) (unknown) Stop: 06/16/22 13:43 (units unknown) (unknown) (unknown) (no date) (unknown) (unknown) Substance Use Type: does not use (units unknown) (unknown) (unknown) (no date) (unknown) (unknown) Time Seen by Provider: 06/16/22 12:46 (units unknown) (unknown) (unknown) (no date) (unknown) (unknown) Total Bilirubin (0.2-1.3) mg/dL (units unknown) (unknown) (unknown) (no date) (unknown) (unknown) Total Bilirubin 2.1 H (0.2-1.3) mg/dL (units unknown) (unknown) (unknown) (no date) (unknown) (unknown) Total Creatine Kinase (55-170) U/L (units unknown) (unknown) (unknown) (no date) (unknown) (unknown) Total Creatine Kinase 53 L (55-170) U/L (units unknown) (unknown) (unknown) (no date) (unknown) (unknown) Total Protein (6.3-8.2) g/dL (units unknown) (unknown) (unknown) (no date) (unknown) (unknown) Total Protein 5.8 L (6.3-8.2) g/dL (units unknown) (unknown) (unknown) (no date) (unknown) (unknown) Treatments: (units unknown) (unknown) (unknown) (no date) (unknown) (unknown) Troponin + CK Cardiac Panel Stat (units unknown) (unknown) (unknown) (no date) (unknown) (unknown) Troponin I < 0.012 (0.01-0.034) ng/mL (units unknown) (unknown) (unknown) (no date) (unknown) (unknown) Troponin I (0.01-0.034) ng/mL (units unknown) (unknown) (unknown) (no date) (unknown) (unknown) Vital Signs - 8 hr (units unknown) (unknown) (unknown) (no date) (unknown) (unknown) Vital Signs (units unknown) (unknown) (unknown) (no date) (unknown) (unknown) Vital signs: (units unknown) (unknown) (unknown) (no date) (unknown) (unknown) WBC (4.5-11.0) X103/uL (units unknown) (unknown) (unknown) (no date) (unknown) (unknown) WBC 9.6 (4.5-11.0) X103/uL (units unknown) (unknown) (unknown) (no date) (unknown) (unknown) [facility] ER for evaluation of dark urine. CT abdomen pelvis were done, (units unknown) (unknown) (unknown) (no date) (unknown) (unknown) XR chest 1V Stat (units unknown) (unknown) (unknown) (no date) (unknown) (unknown) [Embedded Image Not Available] (units unknown) (unknown) (unknown) (no date) (unknown) (unknown) [From Prevnar] and feet x (units unknown) (unknown) (unknown) (no date) (unknown) (unknown) after. 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 (units unknown) (unknown) (unknown) (no date) (unknown) (unknown) facial droop. Fast exam is negative. Cardiology does not feel this is cardiac (units unknown) (unknown) (unknown) (no date) (unknown) (unknown) facial droop. Fast exam is negative. Patient denies any chest pain abdominal (units unknown) (unknown) (unknown) (no date) (unknown) (unknown) failure thrive/dementia/Par kinson's (units unknown) (unknown) (unknown) (no date) (unknown) (unknown) hands with strong equal home care nurse 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 (units unknown) (unknown) (unknown) (no date) (unknown) (unknown) health/weight loss cachexia and balance issues. He had concern for neoplastic (units unknown) (unknown) (unknown) (no date) (unknown) (unknown) hemoglobin 15.4 hematocrit 46.6 platelets 222 PT 17.6 INR 1.5 PTT 38 sodium 135 (units unknown) (unknown) (unknown) (no date) (unknown) (unknown) lactic acid have been ordered (units unknown) (unknown) (unknown) (no date) (unknown) (unknown) no acute process other than diverticulosis without diverticulitis. states (units unknown) (unknown) (unknown) (no date) (unknown) (unknown) pain back pain headache (units unknown) (unknown) (unknown) (no date) (unknown) (unknown) patient has had 30 lb weight loss in the past few months with night sweats it in (units unknown) (unknown) (unknown) (no date) (unknown) (unknown) pneumococcal 7-valent AdvReac Intermediate swelling Verified 06/16/22 12:46 (units unknown) (unknown) (unknown) (no date) (unknown) (unknown) positive night sweats. Positive weight loss (units unknown) (unknown) (unknown) (no date) (unknown) (unknown) potassium 4.8 BUN 34 creatinine 0.99 glucose 146 lactic acid 4.3. BNP 1430 (units unknown) (unknown) (unknown) (no date) (unknown) (unknown) process. I spoke with dr gillette. However, patient was recently seen at (units unknown) (unknown) (unknown) (no date) (unknown) (unknown) [facility], [facility]. (units unknown) (unknown) (unknown) (no date) (unknown) (unknown) related. Patient here for routine annual cardiac workup/checkup. Patient (units unknown) (unknown) (unknown) (no date) (unknown) (unknown) shuffled gait. Generalized weakness and malaise. 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 Patient has history of melanoma. Patient has had recently (units unknown) (unknown) (unknown) (no date) (unknown) (unknown) troponin less than 0.012, procalcitonin 3.27 (units unknown) (unknown) (unknown) (no date) (unknown) (unknown) visit from a few days ago (units unknown) (unknown) Result panel 199 (unknown) (no date) (unknown) (unknown) (no value) (units unknown) (unknown) (unknown) (no date) (unknown) (unknown) [id number] (units unknown) (unknown) (unknown) (no date) (unknown) (unknown) 06/16/22 06/16/22 06/16/22 Range/Units (units unknown) (unknown) (unknown) (no date) (unknown) (unknown) 06/16/22 06/16/22 Range/Units (units unknown) (unknown) (unknown) (no date) (unknown) (unknown) 06/16/22 12:35 (units unknown) (unknown) (unknown) (no date) (unknown) (unknown) 06/16/22 12:45 (units unknown) (unknown) (unknown) (no date) (unknown) (unknown) 06/16/22 13:01 (units unknown) (unknown) (unknown) (no date) (unknown) (unknown) 06/16/22 13:13 (units unknown) (unknown) (unknown) (no date) (unknown) (unknown) 06/16/22 13:24 (units unknown) (unknown) (unknown) (no date) (unknown) (unknown) 06/16/22 13:32 (units unknown) (unknown) (unknown) (no date) (unknown) (unknown) 06/16/22 (units unknown) (unknown) (unknown) (no date) (unknown) (unknown) 12:21 06/16/22 (units unknown) (unknown) (unknown) (no date) (unknown) (unknown) 12:30 06/16/22 (units unknown) (unknown) (unknown) (no date) (unknown) (unknown) 12:30 (units unknown) (unknown) (unknown) (no date) (unknown) (unknown) 12:35 12:35 12:35 (units unknown) (unknown) (unknown) (no date) (unknown) (unknown) 12:35 12:35 (units unknown) (unknown) (unknown) (no date) (unknown) (unknown) 12:45 06/16/22 (units unknown) (unknown) (unknown) (no date) (unknown) (unknown) 13:00 06/16/22 (units unknown) (unknown) (unknown) (no date) (unknown) (unknown) 13:00 (units unknown) (unknown) (unknown) (no date) (unknown) (unknown) 13:15 06/16/22 (units unknown) (unknown) (unknown) (no date) (unknown) (unknown) 13:15 (units unknown) (unknown) (unknown) (no date) (unknown) (unknown) 13:30 06/16/22 (units unknown) (unknown) (unknown) (no date) (unknown) (unknown) 13:45 06/16/22 (units unknown) (unknown) (unknown) (no date) (unknown) (unknown) 13:46 06/16/22 (units unknown) (unknown) (unknown) (no date) (unknown) (unknown) 13:46 (units unknown) (unknown) (unknown) (no date) (unknown) (unknown) 14:00 06/16/22 (units unknown) (unknown) (unknown) (no date) (unknown) (unknown) 14:00 (units unknown) (unknown) (unknown) (no date) (unknown) (unknown) 4 mos (units unknown) (unknown) (unknown) (no date) (unknown) (unknown) 72 (units unknown) (unknown) (unknown) (no date) (unknown) (unknown) ALT (<50) IU/L (units unknown) (unknown) (unknown) (no date) (unknown) (unknown) ALT 63 H (<50) IU/L (units unknown) (unknown) (unknown) (no date) (unknown) (unknown) APTT (26-36) SECONDS (units unknown) (unknown) (unknown) (no date) (unknown) (unknown) APTT 38 H (26-36) SECONDS (units unknown) (unknown) (unknown) (no date) (unknown) (unknown) AST (17-59) IU/L (units unknown) (unknown) (unknown) (no date) (unknown) (unknown) AST 61 H (17-59) IU/L (units unknown) (unknown) (unknown) (no date) (unknown) (unknown) Admin: 06/16/22 13:02 Dose: 1,000 mls/hr (units unknown) (unknown) (unknown) (no date) (unknown) (unknown) After history and exam CT head CT chest CBC CMP BNP troponin procalcitonin (units unknown) (unknown) (unknown) (no date) (unknown) (unknown) Age/Sex: 86 / M (units unknown) (unknown) (unknown) (no date) (unknown) (unknown) Albumin (3.5-5.0) g/dL (units unknown) (unknown) (unknown) (no date) (unknown) (unknown) Albumin 3.1 L (3.5-5.0) g/dL (units unknown) (unknown) (unknown) (no date) (unknown) (unknown) Albumin/Globulin Ratio (1.0-2.8) (units unknown) (unknown) (unknown) (no date) (unknown) (unknown) Albumin/Globulin Ratio 1.1 (1.0-2.8) (units unknown) (unknown) (unknown) (no date) (unknown) (unknown) Alkaline Phosphatase (38-126) U/L (units unknown) (unknown) (unknown) (no date) (unknown) (unknown) Alkaline Phosphatase 428 H (38-126) U/L (units unknown) (unknown) (unknown) (no date) (unknown) (unknown) Allergies (units unknown) (unknown) (unknown) (no date) (unknown) (unknown) Allergy/AdvReac Type Severity Reaction Status Date / Time (units unknown) (unknown) (unknown) (no date) (unknown) (unknown) BACK: No flank tenderness. (units unknown) (unknown) (unknown) (no date) (unknown) (unknown) BNP [NT-proBNP (BNP-Adult 18+)] Stat (units unknown) (unknown) (unknown) (no date) (unknown) (unknown) BUN (9-20) mg/dL (units unknown) (unknown) (unknown) (no date) (unknown) (unknown) BUN 34 H (9-20) mg/dL (units unknown) (unknown) (unknown) (no date) (unknown) (unknown) BUN/Creatinine Ratio (6-22) (units unknown) (unknown) (unknown) (no date) (unknown) (unknown) BUN/Creatinine Ratio 34.3 H (6-22) (units unknown) (unknown) (unknown) (no date) (unknown) (unknown) Baso # (Auto) (0-100) /uL (units unknown) (unknown) (unknown) (no date) (unknown) (unknown) Baso # (Auto) 100 (0-100) /uL (units unknown) (unknown) (unknown) (no date) (unknown) (unknown) Baso % (Auto) (0-2) % (units unknown) (unknown) (unknown) (no date) (unknown) (unknown) Baso % (Auto) 0.8 (0-2) % (units unknown) (unknown) (unknown) (no date) (unknown) (unknown) Blood Culture Stat (units unknown) (unknown) (unknown) (no date) (unknown) (unknown) Blood Pressure 134/61 141/67 H (units unknown) (unknown) (unknown) (no date) (unknown) (unknown) Blood Pressure 141/57 H (units unknown) (unknown) (unknown) (no date) (unknown) (unknown) Blood Pressure 142/67 H (units unknown) (unknown) (unknown) (no date) (unknown) (unknown) Blood Pressure 144/68 H 06/16/22 12:21 (units unknown) (unknown) (unknown) (no date) (unknown) (unknown) Blood Pressure 144/68 H 144/68 H (units unknown) (unknown) (unknown) (no date) (unknown) (unknown) Blood Pressure 145/69 H (units unknown) (unknown) (unknown) (no date) (unknown) (unknown) CARDIOVASCULAR: Regular rate and rhythm without murmurs (units unknown) (unknown) (unknown) (no date) (unknown) (unknown) CARDIOVASCULAR: negative chest pain, palpitations (units unknown) (unknown) (unknown) (no date) (unknown) (unknown) CC: Weakness weight loss night sweats (units unknown) (unknown) (unknown) (no date) (unknown) (unknown) CK-MB (CK-2) Rel Index TNP (units unknown) (unknown) (unknown) (no date) (unknown) (unknown) CK-MB (CK-2) Rel Index (units unknown) (unknown) (unknown) (no date) (unknown) (unknown) CK-MB (CK-2) TNP (units unknown) (unknown) (unknown) (no date) (unknown) (unknown) CK-MB (CK-2) (units unknown) (unknown) (unknown) (no date) (unknown) (unknown) CT chest w con Stat (units unknown) (unknown) (unknown) (no date) (unknown) (unknown) CT head/brain wo con Stat (units unknown) (unknown) (unknown) (no date) (unknown) (unknown) Calcium (8.4-10.2) mg/dL (units unknown) (unknown) (unknown) (no date) (unknown) (unknown) Calcium 8.1 L (8.4-10.2) mg/dL (units unknown) (unknown) (unknown) (no date) (unknown) (unknown) Carbon Dioxide (22-32) mmol/L (units unknown) (unknown) (unknown) (no date) (unknown) (unknown) Carbon Dioxide 28 (22-32) mmol/L (units unknown) (unknown) (unknown) (no date) (unknown) (unknown) Chief complaint: Weakness (units unknown) (unknown) (unknown) (no date) (unknown) (unknown) Chloride (98-107) mmol/L (units unknown) (unknown) (unknown) (no date) (unknown) (unknown) Chloride 99 (98-107) mmol/L (units unknown) (unknown) (unknown) (no date) (unknown) (unknown) Complete Blood Count AUTO DIFF Stat (units unknown) (unknown) (unknown) (no date) (unknown) (unknown) Complicating co-morbidities: History of melanoma (units unknown) (unknown) (unknown) (no date) (unknown) (unknown) Comprehensive Metabolic Panel Stat (units unknown) (unknown) (unknown) (no date) (unknown) (unknown) Consultations: (units unknown) (unknown) (unknown) (no date) (unknown) (unknown) Course (units unknown) (unknown) (unknown) (no date) (unknown) (unknown) Covid-19 + FLU A/B + RSV - PCR Stat (units unknown) (unknown) (unknown) (no date) (unknown) (unknown) Creatinine (0.66-1.25) mg/dL (units unknown) (unknown) (unknown) (no date) (unknown) (unknown) Creatinine 0.99 (0.66-1.25) mg/dL (units unknown) (unknown) (unknown) (no date) (unknown) (unknown) : 1935 Acct:[id number] (units unknown) (unknown) (unknown) (no date) (unknown) (unknown) 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 (units unknown) (unknown) (unknown) (no date) (unknown) (unknown) Date of Service: 06/16/22 (units unknown) (unknown) (unknown) (no date) (unknown) (unknown) Departure (units unknown) (unknown) (unknown) (no date) (unknown) (unknown) Diagnosis: (units unknown) (unknown) (unknown) (no date) (unknown) (unknown) Differential considered: Includes but not limited to neoplastic process, (units unknown) (unknown) (unknown) (no date) (unknown) (unknown) Discharge Plan (units unknown) (unknown) (unknown) (no date) (unknown) (unknown) Discontinued Medications (units unknown) (unknown) (unknown) (no date) (unknown) (unknown) Discussion: (units unknown) (unknown) (unknown) (no date) (unknown) (unknown) Documented By: JG (units unknown) (unknown) (unknown) (no date) (unknown) (unknown) Documented By: RLS (units unknown) (unknown) (unknown) (no date) (unknown) (unknown) ED Orders (units unknown) (unknown) (unknown) (no date) (unknown) (unknown) EKG-12 Lead Stat (units unknown) (unknown) (unknown) (no date) (unknown) (unknown) ENT: Slightly dry lips and mucous membranes (units unknown) (unknown) (unknown) (no date) (unknown) (unknown) ER Physician: Matt Swartz MD (units unknown) (unknown) (unknown) (no date) (unknown) (unknown) EXTREMITIES: No gross deformities. (units unknown) (unknown) (unknown) (no date) (unknown) (unknown) EYES: Pupils equal round (units unknown) (unknown) (unknown) (no date) (unknown) (unknown) Emergency Report (units unknown) (unknown) (unknown) (no date) (unknown) (unknown) Eos # (Auto) (0-450) /uL (units unknown) (unknown) (unknown) (no date) (unknown) (unknown) Eos # (Auto) 0 (0-450) /uL (units unknown) (unknown) (unknown) (no date) (unknown) (unknown) Eos % (Auto) (2-4) % (units unknown) (unknown) (unknown) (no date) (unknown) (unknown) Eos % (Auto) 0.1 L (2-4) % (units unknown) (unknown) (unknown) (no date) (unknown) (unknown) Estimated GFR > 60 (>60) mL/min (units unknown) (unknown) (unknown) (no date) (unknown) (unknown) Estimated GFR (>60) mL/min (units unknown) (unknown) (unknown) (no date) (unknown) (unknown) Exam Narrative: (units unknown) (unknown) (unknown) (no date) (unknown) (unknown) Exam documented above, pertinent findings include: Cachectic-appearing dry (units unknown) (unknown) (unknown) (no date) (unknown) (unknown) Exam (units unknown) (unknown) (unknown) (no date) (unknown) (unknown) GASTROINTESTINAL: Abdomen soft, non-tender (units unknown) (unknown) (unknown) (no date) (unknown) (unknown) GASTROINTESTINAL: negative nausea, vomiting, abdominal pain (units unknown) (unknown) (unknown) (no date) (unknown) (unknown) GENERAL: in no distress, not toxic not dyspneic, is cachectic appearing (units unknown) (unknown) (unknown) (no date) (unknown) (unknown) GENERAL: negative chills, positive fatigue, malaise, dizzy negative fever, (units unknown) (unknown) (unknown) (no date) (unknown) (unknown) : negative dysuria, frequency, hematuria (units unknown) (unknown) (unknown) (no date) (unknown) (unknown) General (units unknown) (unknown) (unknown) (no date) (unknown) (unknown) Globulin (1.7-4.1) g/dL (units unknown) (unknown) (unknown) (no date) (unknown) (unknown) Globulin 2.7 (1.7-4.1) g/dL (units unknown) (unknown) (unknown) (no date) (unknown) (unknown) Glucose (80-110) mg/dL (units unknown) (unknown) (unknown) (no date) (unknown) (unknown) Glucose 146 H (80-110) mg/dL (units unknown) (unknown) (unknown) (no date) (unknown) (unknown) HEAD: Normocephalic. (units unknown) (unknown) (unknown) (no date) (unknown) (unknown) HEENT: negative sinus pain, ear pain, sore throat (units unknown) (unknown) (unknown) (no date) (unknown) (unknown) HPI - Weakness (units unknown) (unknown) (unknown) (no date) (unknown) (unknown) HPI Narrative: (units unknown) (unknown) (unknown) (no date) (unknown) (unknown) Hct (41-53) % (units unknown) (unknown) (unknown) (no date) (unknown) (unknown) Hct 46.6 (41-53) % (units unknown) (unknown) (unknown) (no date) (unknown) (unknown) Hgb (13.5-17.5) g/dL (units unknown) (unknown) (unknown) (no date) (unknown) (unknown) Hgb 15.4 (13.5-17.5) g/dL (units unknown) (unknown) (unknown) (no date) (unknown) (unknown) History of Present Illness (units unknown) (unknown) (unknown) (no date) (unknown) (unknown) Home Medications (units unknown) (unknown) (unknown) (no date) (unknown) (unknown) INR (0.9-1.3) (units unknown) (unknown) (unknown) (no date) (unknown) (unknown) INR 1.5 H (0.9-1.3) (units unknown) (unknown) (unknown) (no date) (unknown) (unknown) Imaging studies independently reviewed: Chest x-ray no acute process (units unknown) (unknown) (unknown) (no date) (unknown) (unknown) Independently reviewed EKG as above atrial sensed ventricular paced rhythm rate (units unknown) (unknown) (unknown) (no date) (unknown) (unknown) Influenza A (RT-PCR) (NEGATIVE) (units unknown) (unknown) (unknown) (no date) (unknown) (unknown) Influenza A (RT-PCR) Flu a negative (NEGATIVE) (units unknown) (unknown) (unknown) (no date) (unknown) (unknown) Influenza B (RT-PCR) (NEGATIVE) (units unknown) (unknown) (unknown) (no date) (unknown) (unknown) Influenza B (RT-PCR) Flu b negative (NEGATIVE) (units unknown) (unknown) (unknown) (no date) (unknown) (unknown) Initial Vital Signs (units unknown) (unknown) (unknown) (no date) (unknown) (unknown) Initial Vital Signs: (units unknown) (unknown) (unknown) (no date) (unknown) (unknown) [address] [address] (units unknown) (unknown) (unknown) (no date) (unknown) (unknown) Lab Data (units unknown) (unknown) (unknown) (no date) (unknown) (unknown) Lab Results (units unknown) (unknown) (unknown) (no date) (unknown) (unknown) Lab Test results independently reviewed as above. Pertinent findings: WBC 9.6 (units unknown) (unknown) (unknown) (no date) (unknown) (unknown) Labs: (units unknown) (unknown) (unknown) (no date) (unknown) (unknown) Lactate (0.7-2.1) mmol/L (units unknown) (unknown) (unknown) (no date) (unknown) (unknown) Lactate (Lactic Acid) Stat (units unknown) (unknown) (unknown) (no date) (unknown) (unknown) Lactate 4.3 H* (0.7-2.1) mmol/L (units unknown) (unknown) (unknown) (no date) (unknown) (unknown) Lucien Lan MD [Primary Care Provider] (units unknown) (unknown) (unknown) (no date) (unknown) (unknown) Last Infusion: 06/16/22 14:09 Dose: 0 mls/hr (units unknown) (unknown) (unknown) (no date) (unknown) (unknown) Lipase (23-300) U/L (units unknown) (unknown) (unknown) (no date) (unknown) (unknown) Lipase 45 (23-300) U/L (units unknown) (unknown) (unknown) (no date) (unknown) (unknown) Lipase Stat (units unknown) (unknown) (unknown) (no date) (unknown) (unknown) Lymph # (Auto) (7116-1751) /uL (units unknown) (unknown) (unknown) (no date) (unknown) (unknown) Lymph # (Auto) 400 L (1652-8920) /uL (units unknown) (unknown) (unknown) (no date) (unknown) (unknown) Lymph % (Auto) (25-40) % (units unknown) (unknown) (unknown) (no date) (unknown) (unknown) Lymph % (Auto) 4.6 L (25-40) % (units unknown) (unknown) (unknown) (no date) (unknown) (unknown) MCH (26-34) PG (units unknown) (unknown) (unknown) (no date) (unknown) (unknown) MCH 30.4 (26-34) PG (units unknown) (unknown) (unknown) (no date) (unknown) (unknown) MCHC (30-36) % (units unknown) (unknown) (unknown) (no date) (unknown) (unknown) MCHC 33.0 (30-36) % (units unknown) (unknown) (unknown) (no date) (unknown) (unknown) MCV (80-100) fL (units unknown) (unknown) (unknown) (no date) (unknown) (unknown) MCV 92.4 (80-100) fL (units unknown) (unknown) (unknown) (no date) (unknown) (unknown) MDM - Weakness (units unknown) (unknown) (unknown) (no date) (unknown) (unknown) MDM Narrative (units unknown) (unknown) (unknown) (no date) (unknown) (unknown) MDM (units unknown) (unknown) (unknown) (no date) (unknown) (unknown) MUSCULOSKELETAL: negative muscle or bony pain (units unknown) (unknown) (unknown) (no date) (unknown) (unknown) Medical decision making narrative: (units unknown) (unknown) (unknown) (no date) (unknown) (unknown) Medical records reviewed: ER visits from a few days ago (units unknown) (unknown) (unknown) (no date) (unknown) (unknown) Medication Instructions Recorded Confirmed (units unknown) (unknown) (unknown) (no date) (unknown) (unknown) Mode of arrival: Wheelchair (units unknown) (unknown) (unknown) (no date) (unknown) (unknown) [place] # (Auto) (0-900) /uL (units unknown) (unknown) (unknown) (no date) (unknown) (unknown) [place] # (Auto) 900 (0-900) /uL (units unknown) (unknown) (unknown) (no date) (unknown) (unknown) [place] % (Auto) (3-14) % (units unknown) (unknown) (unknown) (no date) (unknown) (unknown) [place] % (Auto) 9.4 (3-14) % (units unknown) (unknown) (unknown) (no date) (unknown) (unknown) NECK: Trachea midline. (units unknown) (unknown) (unknown) (no date) (unknown) (unknown) NEURO: AOx4. Clear speech no facial droop light touch intact to bilateral face (units unknown) (unknown) (unknown) (no date) (unknown) (unknown) NEUROLOGIC: negative weakness, numbness (units unknown) (unknown) (unknown) (no date) (unknown) (unknown) NT-Pro-B Natriuret Pep (<450) pg/mL (units unknown) (unknown) (unknown) (no date) (unknown) (unknown) NT-Pro-B Natriuret Pep 1430 H (<450) pg/mL (units unknown) (unknown) (unknown) (no date) (unknown) (unknown) Narrative (units unknown) (unknown) (unknown) (no date) (unknown) (unknown) Narrative: (units unknown) (unknown) (unknown) (no date) (unknown) (unknown) Neut # (Auto) (6839-8175) /uL (units unknown) (unknown) (unknown) (no date) (unknown) (unknown) Neut # (Auto) 8200 H (9250-5928) /uL (units unknown) (unknown) (unknown) (no date) (unknown) (unknown) Neut % (Auto) (50-75) % (units unknown) (unknown) (unknown) (no date) (unknown) (unknown) Neut % (Auto) 85.1 H (50-75) % (units unknown) (unknown) (unknown) (no date) (unknown) (unknown) No Action (units unknown) (unknown) (unknown) (no date) (unknown) (unknown) No Known Home Medications 12/20/20 12/20/20 (units unknown) (unknown) (unknown) (no date) (unknown) (unknown) No Known Home Medications (units unknown) (unknown) (unknown) (no date) (unknown) (unknown) Ondansetron HCl (Ondansetron 4 Mg/2 Ml Inj) 4 mg IV NOW PRN (units unknown) (unknown) (unknown) (no date) (unknown) (unknown) Ordered: (units unknown) (unknown) (unknown) (no date) (unknown) (unknown) Orders (units unknown) (unknown) (unknown) (no date) (unknown) (unknown) Oxygen Delivery Method 06/16/22 12:21 (units unknown) (unknown) (unknown) (no date) (unknown) (unknown) Oxygen Delivery Method Room Air (units unknown) (unknown) (unknown) (no date) (unknown) (unknown) Oxygen Delivery Method (units unknown) (unknown) (unknown) (no date) (unknown) (unknown) PRN Reason: Nausea And Vomiting (units unknown) (unknown) (unknown) (no date) (unknown) (unknown) PSYCH: Not anxious, is cooperative (units unknown) (unknown) (unknown) (no date) (unknown) (unknown) PT (10.1-12.7) SECONDS (units unknown) (unknown) (unknown) (no date) (unknown) (unknown) PT 17.6 H (10.1-12.7) SECONDS (units unknown) (unknown) (unknown) (no date) (unknown) (unknown) Partial Thromboplastin Time Stat (units unknown) (unknown) (unknown) (no date) (unknown) (unknown) Patient History (units unknown) (unknown) (unknown) (no date) (unknown) (unknown) Patient brought in by from Cardiology office for routine office visit. I (units unknown) (unknown) (unknown) (no date) (unknown) (unknown) Patient: Yoseph Cardoso MR#: [id number] (units unknown) (unknown) (unknown) (no date) (unknown) (unknown) Plt Count (150-400) X103/uL (units unknown) (unknown) (unknown) (no date) (unknown) (unknown) Plt Count 222 (150-400) X103/uL (units unknown) (unknown) (unknown) (no date) (unknown) (unknown) Potassium (3.4-5.1) mmol/L (units unknown) (unknown) (unknown) (no date) (unknown) (unknown) Potassium 4.8 (3.4-5.1) mmol/L (units unknown) (unknown) (unknown) (no date) (unknown) (unknown) Prescriptions: (units unknown) (unknown) (unknown) (no date) (unknown) (unknown) Procalcitonin (<0.5) ng/mL (units unknown) (unknown) (unknown) (no date) (unknown) (unknown) Procalcitonin 3.27 H (<0.5) ng/mL (units unknown) (unknown) (unknown) (no date) (unknown) (unknown) Procalcitonin Stat (units unknown) (unknown) (unknown) (no date) (unknown) (unknown) Prothrombin Time INR Stat (units unknown) (unknown) (unknown) (no date) (unknown) (unknown) Pulse Oximetry 100 96 (units unknown) (unknown) (unknown) (no date) (unknown) (unknown) Pulse Oximetry 91 93 (units unknown) (unknown) (unknown) (no date) (unknown) (unknown) Pulse Oximetry 96 96 (units unknown) (unknown) (unknown) (no date) (unknown) (unknown) Pulse Oximetry 98 06/16/22 12:21 (units unknown) (unknown) (unknown) (no date) (unknown) (unknown) Pulse Oximetry 98 93 (units unknown) (unknown) (unknown) (no date) (unknown) (unknown) Pulse Oximetry 98 (units unknown) (unknown) (unknown) (no date) (unknown) (unknown) Pulse Rate 70 72 (units unknown) (unknown) (unknown) (no date) (unknown) (unknown) Pulse Rate 71 73 (units unknown) (unknown) (unknown) (no date) (unknown) (unknown) Pulse Rate 73 75 (units unknown) (unknown) (unknown) (no date) (unknown) (unknown) Pulse Rate 76 (units unknown) (unknown) (unknown) (no date) (unknown) (unknown) Pulse Rate 78 06/16/22 12:21 (units unknown) (unknown) (unknown) (no date) (unknown) (unknown) Pulse Rate 78 79 (units unknown) (unknown) (unknown) (no date) (unknown) (unknown) RBC (4.5-5.9) X106/uL (units unknown) (unknown) (unknown) (no date) (unknown) (unknown) RBC 5.05 (4.5-5.9) X106/uL (units unknown) (unknown) (unknown) (no date) (unknown) (unknown) RDW (11.6-14.8) % (units unknown) (unknown) (unknown) (no date) (unknown) (unknown) RDW 14.4 (11.6-14.8) % (units unknown) (unknown) (unknown) (no date) (unknown) (unknown) RESPIRATORY: Clear to auscultation. Breath sounds equal bilaterally. No wheezes, (units unknown) (unknown) (unknown) (no date) (unknown) (unknown) RESPIRATORY: negative dyspnea, cough (units unknown) (unknown) (unknown) (no date) (unknown) (unknown) ROS Unobtainable: All systems reviewed + are unremarkable except as noted in HPI (units unknown) (unknown) (unknown) (no date) (unknown) (unknown) RSV (PCR) (Negative) (units unknown) (unknown) (unknown) (no date) (unknown) (unknown) RSV (PCR) Negative (Negative) (units unknown) (unknown) (unknown) (no date) (unknown) (unknown) RT Consult Eval and Treat NOW (units unknown) (unknown) (unknown) (no date) (unknown) (unknown) Re-evaluations: (units unknown) (unknown) (unknown) (no date) (unknown) (unknown) Referrals: (units unknown) (unknown) (unknown) (no date) (unknown) (unknown) Related Data (units unknown) (unknown) (unknown) (no date) (unknown) (unknown) Respiratory Rate 17 16 (units unknown) (unknown) (unknown) (no date) (unknown) (unknown) Respiratory Rate 20 13 (units unknown) (unknown) (unknown) (no date) (unknown) (unknown) Respiratory Rate 22 06/16/22 12:21 (units unknown) (unknown) (unknown) (no date) (unknown) (unknown) Respiratory Rate 22 14 (units unknown) (unknown) (unknown) (no date) (unknown) (unknown) Respiratory Rate 22 (units unknown) (unknown) (unknown) (no date) (unknown) (unknown) Review of Systems (units unknown) (unknown) (unknown) (no date) (unknown) (unknown) SARS-CoV-2 (PCR) (Negative) (units unknown) (unknown) (unknown) (no date) (unknown) (unknown) SARS-CoV-2 (PCR) Negative (Negative) (units unknown) (unknown) (unknown) (no date) (unknown) (unknown) SKIN: Warm and dry (units unknown) (unknown) (unknown) (no date) (unknown) (unknown) SKIN: negative rash, skin lesions (units unknown) (unknown) (unknown) (no date) (unknown) (unknown) Signed By: (units unknown) (unknown) (unknown) (no date) (unknown) (unknown) Smoking Status: Smoker, status unknown (units unknown) (unknown) (unknown) (no date) (unknown) (unknown) Social History (units unknown) (unknown) (unknown) (no date) (unknown) (unknown) Sodium (137-145) mmol/L (units unknown) (unknown) (unknown) (no date) (unknown) (unknown) Sodium 135 L (137-145) mmol/L (units unknown) (unknown) (unknown) (no date) (unknown) (unknown) Sodium Chloride (Normal Saline 0.9%) 1,000 mls @ 1,000 mls/hr IV BOLUS ONE (units unknown) (unknown) (unknown) (no date) (unknown) (unknown) Source: patient and family (units unknown) (unknown) (unknown) (no date) (unknown) (unknown) Stated complaint: Pain near pacemaker (units unknown) (unknown) (unknown) (no date) (unknown) (unknown) Stop: 06/16/22 13:43 (units unknown) (unknown) (unknown) (no date) (unknown) (unknown) Substance Use Type: does not use (units unknown) (unknown) (unknown) (no date) (unknown) (unknown) Time Seen by Provider: 06/16/22 12:46 (units unknown) (unknown) (unknown) (no date) (unknown) (unknown) Total Bilirubin (0.2-1.3) mg/dL (units unknown) (unknown) (unknown) (no date) (unknown) (unknown) Total Bilirubin 2.1 H (0.2-1.3) mg/dL (units unknown) (unknown) (unknown) (no date) (unknown) (unknown) Total Creatine Kinase (55-170) U/L (units unknown) (unknown) (unknown) (no date) (unknown) (unknown) Total Creatine Kinase 53 L (55-170) U/L (units unknown) (unknown) (unknown) (no date) (unknown) (unknown) Total Protein (6.3-8.2) g/dL (units unknown) (unknown) (unknown) (no date) (unknown) (unknown) Total Protein 5.8 L (6.3-8.2) g/dL (units unknown) (unknown) (unknown) (no date) (unknown) (unknown) Treatments: (units unknown) (unknown) (unknown) (no date) (unknown) (unknown) Troponin + CK Cardiac Panel Stat (units unknown) (unknown) (unknown) (no date) (unknown) (unknown) Troponin I < 0.012 (0.01-0.034) ng/mL (units unknown) (unknown) (unknown) (no date) (unknown) (unknown) Troponin I (0.01-0.034) ng/mL (units unknown) (unknown) (unknown) (no date) (unknown) (unknown) Vital Signs - 8 hr (units unknown) (unknown) (unknown) (no date) (unknown) (unknown) Vital Signs (units unknown) (unknown) (unknown) (no date) (unknown) (unknown) Vital signs: (units unknown) (unknown) (unknown) (no date) (unknown) (unknown) WBC (4.5-11.0) X103/uL (units unknown) (unknown) (unknown) (no date) (unknown) (unknown) WBC 9.6 (4.5-11.0) X103/uL (units unknown) (unknown) (unknown) (no date) (unknown) (unknown) [facility] ER for evaluation of dark urine. CT abdomen pelvis were done, (units unknown) (unknown) (unknown) (no date) (unknown) (unknown) XR chest 1V Stat (units unknown) (unknown) (unknown) (no date) (unknown) (unknown) [Embedded Image Not Available] (units unknown) (unknown) (unknown) (no date) (unknown) (unknown) [From Prevnar] and feet x (units unknown) (unknown) (unknown) (no date) (unknown) (unknown) after. 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 (units unknown) (unknown) (unknown) (no date) (unknown) (unknown) facial droop. Fast exam is negative. Cardiology does not feel this is cardiac (units unknown) (unknown) (unknown) (no date) (unknown) (unknown) facial droop. Fast exam is negative. Patient denies any chest pain abdominal (units unknown) (unknown) (unknown) (no date) (unknown) (unknown) failure thrive/dementia/Par kinson's (units unknown) (unknown) (unknown) (no date) (unknown) (unknown) hands with strong equal home care nurse 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 (units unknown) (unknown) (unknown) (no date) (unknown) (unknown) health/weight loss cachexia and balance issues. He had concern for neoplastic (units unknown) (unknown) (unknown) (no date) (unknown) (unknown) hemoglobin 15.4 hematocrit 46.6 platelets 222 PT 17.6 INR 1.5 PTT 38 sodium 135 (units unknown) (unknown) (unknown) (no date) (unknown) (unknown) lactic acid have been ordered (units unknown) (unknown) (unknown) (no date) (unknown) (unknown) no acute process other than diverticulosis without diverticulitis. states (units unknown) (unknown) (unknown) (no date) (unknown) (unknown) pain back pain headache (units unknown) (unknown) (unknown) (no date) (unknown) (unknown) patient has had 30 lb weight loss in the past few months with night sweats it in (units unknown) (unknown) (unknown) (no date) (unknown) (unknown) pneumococcal 7-valent AdvReac Intermediate swelling Verified 06/16/22 12:46 (units unknown) (unknown) (unknown) (no date) (unknown) (unknown) positive night sweats. Positive weight loss (units unknown) (unknown) (unknown) (no date) (unknown) (unknown) potassium 4.8 BUN 34 creatinine 0.99 glucose 146 lactic acid 4.3. BNP 1430 (units unknown) (unknown) (unknown) (no date) (unknown) (unknown) process. I spoke with dr gillette. However, patient was recently seen at (units unknown) (unknown) (unknown) (no date) (unknown) (unknown) [facility]. (units unknown) (unknown) (unknown) (no date) (unknown) (unknown) related. Patient here for routine annual cardiac workup/checkup. Patient (units unknown) (unknown) (unknown) (no date) (unknown) (unknown) shuffled gait. Generalized weakness and malaise. 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 Patient has history of melanoma. Patient has had recently (units unknown) (unknown) (unknown) (no date) (unknown) (unknown) troponin less than 0.012, procalcitonin 3.27 (units unknown) (unknown) (unknown) (no date) (unknown) (unknown) visit from a few days ago (units unknown) (unknown) Result panel 200 (unknown) (no date) (unknown) (unknown) (no value) (units unknown) (unknown) (unknown) (no date) (unknown) (unknown) [id number] (units unknown) (unknown) (unknown) (no date) (unknown) (unknown) 06/16/22 06/16/22 06/16/22 Range/Units (units unknown) (unknown) (unknown) (no date) (unknown) (unknown) 06/16/22 06/16/22 Range/Units (units unknown) (unknown) (unknown) (no date) (unknown) (unknown) 06/16/22 12:35 (units unknown) (unknown) (unknown) (no date) (unknown) (unknown) 06/16/22 12:45 (units unknown) (unknown) (unknown) (no date) (unknown) (unknown) 06/16/22 13:01 (units unknown) (unknown) (unknown) (no date) (unknown) (unknown) 06/16/22 13:13 (units unknown) (unknown) (unknown) (no date) (unknown) (unknown) 06/16/22 13:24 (units unknown) (unknown) (unknown) (no date) (unknown) (unknown) 06/16/22 13:32 (units unknown) (unknown) (unknown) (no date) (unknown) (unknown) 06/16/22 (units unknown) (unknown) (unknown) (no date) (unknown) (unknown) [address] [place] (units unknown) (unknown) (unknown) (no date) (unknown) (unknown) 12:21 06/16/22 (units unknown) (unknown) (unknown) (no date) (unknown) (unknown) 12:30 06/16/22 (units unknown) (unknown) (unknown) (no date) (unknown) (unknown) 12:30 (units unknown) (unknown) (unknown) (no date) (unknown) (unknown) 12:35 12:35 12:35 (units unknown) (unknown) (unknown) (no date) (unknown) (unknown) 12:35 12:35 (units unknown) (unknown) (unknown) (no date) (unknown) (unknown) 12:45 06/16/22 (units unknown) (unknown) (unknown) (no date) (unknown) (unknown) 13:00 06/16/22 (units unknown) (unknown) (unknown) (no date) (unknown) (unknown) 13:00 (units unknown) (unknown) (unknown) (no date) (unknown) (unknown) 13:15 06/16/22 (units unknown) (unknown) (unknown) (no date) (unknown) (unknown) 13:15 (units unknown) (unknown) (unknown) (no date) (unknown) (unknown) 13:30 06/16/22 (units unknown) (unknown) (unknown) (no date) (unknown) (unknown) 13:45 06/16/22 (units unknown) (unknown) (unknown) (no date) (unknown) (unknown) 13:46 06/16/22 (units unknown) (unknown) (unknown) (no date) (unknown) (unknown) 13:46 (units unknown) (unknown) (unknown) (no date) (unknown) (unknown) 14:00 06/16/22 (units unknown) (unknown) (unknown) (no date) (unknown) (unknown) 14:00 (units unknown) (unknown) (unknown) (no date) (unknown) (unknown) 4 mos (units unknown) (unknown) (unknown) (no date) (unknown) (unknown) 72 (units unknown) (unknown) (unknown) (no date) (unknown) (unknown) ? (units unknown) (unknown) (unknown) (no date) (unknown) (unknown) ALT (<50) IU/L (units unknown) (unknown) (unknown) (no date) (unknown) (unknown) ALT 63 H (<50) IU/L (units unknown) (unknown) (unknown) (no date) (unknown) (unknown) APTT (26-36) SECONDS (units unknown) (unknown) (unknown) (no date) (unknown) (unknown) APTT 38 H (26-36) SECONDS (units unknown) (unknown) (unknown) (no date) (unknown) (unknown) AST (17-59) IU/L (units unknown) (unknown) (unknown) (no date) (unknown) (unknown) AST 61 H (17-59) IU/L (units unknown) (unknown) (unknown) (no date) (unknown) (unknown) Accession Number: [id number] ?? (units unknown) (unknown) (unknown) (no date) (unknown) (unknown) Accession Number: [id number] ?? (units unknown) (unknown) (unknown) (no date) (unknown) (unknown) Accession Number: [id number] ?? (units unknown) (unknown) (unknown) (no date) (unknown) (unknown) Acct:[id number] (units unknown) (unknown) (unknown) (no date) (unknown) (unknown) Admin: 06/16/22 13:02 Dose: 1,000 mls/hr (units unknown) (unknown) (unknown) (no date) (unknown) (unknown) After history and exam CT head CT chest CBC CMP BNP troponin procalcitonin (units unknown) (unknown) (unknown) (no date) (unknown) (unknown) After the administration of intravenous contrast, 5 mm thick sections acquired (units unknown) (unknown) (unknown) (no date) (unknown) (unknown) Age/Sex: 86 / M (units unknown) (unknown) (unknown) (no date) (unknown) (unknown) Albumin (3.5-5.0) g/dL (units unknown) (unknown) (unknown) (no date) (unknown) (unknown) Albumin 3.1 L (3.5-5.0) g/dL (units unknown) (unknown) (unknown) (no date) (unknown) (unknown) Albumin/Globulin Ratio (1.0-2.8) (units unknown) (unknown) (unknown) (no date) (unknown) (unknown) Albumin/Globulin Ratio 1.1 (1.0-2.8) (units unknown) (unknown) (unknown) (no date) (unknown) (unknown) Alkaline Phosphatase (38-126) U/L (units unknown) (unknown) (unknown) (no date) (unknown) (unknown) Alkaline Phosphatase 428 H (38-126) U/L (units unknown) (unknown) (unknown) (no date) (unknown) (unknown) Allergies (units unknown) (unknown) (unknown) (no date) (unknown) (unknown) Allergy/AdvReac Type Severity Reaction Status Date / Time (units unknown) (unknown) (unknown) (no date) (unknown) (unknown) [place] [address] (units unknown) (unknown) (unknown) (no date) (unknown) (unknown) Approved by: Brandyn Davis M.D. on 06/16/2022 at 13:03 ? (units unknown) (unknown) (unknown) (no date) (unknown) (unknown) Approved by: Brandyn Davis M.D. on 06/16/2022 at 14:52 ? (units unknown) (unknown) (unknown) (no date) (unknown) (unknown) Approved by: Brandyn Davis M.D. on 06/16/2022 at 14:54 ? (units unknown) (unknown) (unknown) (no date) (unknown) (unknown) BACK: No flank tenderness. (units unknown) (unknown) (unknown) (no date) (unknown) (unknown) BNP [NT-proBNP (BNP-Adult 18+)] Stat (units unknown) (unknown) (unknown) (no date) (unknown) (unknown) BUN (9-20) mg/dL (units unknown) (unknown) (unknown) (no date) (unknown) (unknown) BUN 34 H (9-20) mg/dL (units unknown) (unknown) (unknown) (no date) (unknown) (unknown) BUN/Creatinine Ratio (6-22) (units unknown) (unknown) (unknown) (no date) (unknown) (unknown) BUN/Creatinine Ratio 34.3 H (6-22) (units unknown) (unknown) (unknown) (no date) (unknown) (unknown) Baso # (Auto) (0-100) /uL (units unknown) (unknown) (unknown) (no date) (unknown) (unknown) Baso # (Auto) 100 (0-100) /uL (units unknown) (unknown) (unknown) (no date) (unknown) (unknown) Baso % (Auto) (0-2) % (units unknown) (unknown) (unknown) (no date) (unknown) (unknown) Baso % (Auto) 0.8 (0-2) % (units unknown) (unknown) (unknown) (no date) (unknown) (unknown) Blood Culture Stat (units unknown) (unknown) (unknown) (no date) (unknown) (unknown) Blood Pressure 134/61 141/67 H (units unknown) (unknown) (unknown) (no date) (unknown) (unknown) Blood Pressure 141/57 H (units unknown) (unknown) (unknown) (no date) (unknown) (unknown) Blood Pressure 142/67 H (units unknown) (unknown) (unknown) (no date) (unknown) (unknown) Blood Pressure 144/68 H 06/16/22 12:21 (units unknown) (unknown) (unknown) (no date) (unknown) (unknown) Blood Pressure 144/68 H 144/68 H (units unknown) (unknown) (unknown) (no date) (unknown) (unknown) Blood Pressure 145/69 H (units unknown) (unknown) (unknown) (no date) (unknown) (unknown) Bones and chest wall:? No suspicious bony lesions.? Overlying soft tissues (units unknown) (unknown) (unknown) (no date) (unknown) (unknown) Bones:? No acute or suspicious osseous abnormality. (units unknown) (unknown) (unknown) (no date) (unknown) (unknown) Brain: No intracranial hemorrhage. Amaro-white differentiation is grossly (units unknown) (unknown) (unknown) (no date) (unknown) (unknown) CARDIOVASCULAR: Regular rate and rhythm without murmurs (units unknown) (unknown) (unknown) (no date) (unknown) (unknown) CARDIOVASCULAR: negative chest pain, palpitations (units unknown) (unknown) (unknown) (no date) (unknown) (unknown) CC: Weakness weight loss night sweats (units unknown) (unknown) (unknown) (no date) (unknown) (unknown) CK-MB (CK-2) Rel Index TNP (units unknown) (unknown) (unknown) (no date) (unknown) (unknown) CK-MB (CK-2) Rel Index (units unknown) (unknown) (unknown) (no date) (unknown) (unknown) CK-MB (CK-2) TNP (units unknown) (unknown) (unknown) (no date) (unknown) (unknown) CK-MB (CK-2) (units unknown) (unknown) (unknown) (no date) (unknown) (unknown) COMPARISON:[facility], CR, XR CHEST 1V, 06/16/2022, 12:43. (units unknown) (unknown) (unknown) (no date) (unknown) (unknown) COMPARISON:? None. (units unknown) (unknown) (unknown) (no date) (unknown) (unknown) CSF spaces: Basal cisterns are patent. Lateral ventricles are symmetric. (units unknown) (unknown) (unknown) (no date) (unknown) (unknown) CT Scan Report (units unknown) (unknown) (unknown) (no date) (unknown) (unknown) CT chest w con Stat (units unknown) (unknown) (unknown) (no date) (unknown) (unknown) CT head/brain wo con Stat (units unknown) (unknown) (unknown) (no date) (unknown) (unknown) CT scan - chest: (units unknown) (unknown) (unknown) (no date) (unknown) (unknown) CT scan - head: (units unknown) (unknown) (unknown) (no date) (unknown) (unknown) Calcium (8.4-10.2) mg/dL (units unknown) (unknown) (unknown) (no date) (unknown) (unknown) Calcium 8.1 L (8.4-10.2) mg/dL (units unknown) (unknown) (unknown) (no date) (unknown) (unknown) Carbon Dioxide (22-32) mmol/L (units unknown) (unknown) (unknown) (no date) (unknown) (unknown) Carbon Dioxide 28 (22-32) mmol/L (units unknown) (unknown) (unknown) (no date) (unknown) (unknown) Chest wall and thyroid:? Unremarkable (units unknown) (unknown) (unknown) (no date) (unknown) (unknown) Chest x-ray: (units unknown) (unknown) (unknown) (no date) (unknown) (unknown) Chief complaint: Weakness (units unknown) (unknown) (unknown) (no date) (unknown) (unknown) Chloride (98-107) mmol/L (units unknown) (unknown) (unknown) (no date) (unknown) (unknown) Chloride 99 (98-107) mmol/L (units unknown) (unknown) (unknown) (no date) (unknown) (unknown) Complete Blood Count AUTO DIFF Stat (units unknown) (unknown) (unknown) (no date) (unknown) (unknown) Complicating co-morbidities: History of melanoma (units unknown) (unknown) (unknown) (no date) (unknown) (unknown) Comprehensive Metabolic Panel Stat (units unknown) (unknown) (unknown) (no date) (unknown) (unknown) Consultations: (units unknown) (unknown) (unknown) (no date) (unknown) (unknown) Course (units unknown) (unknown) (unknown) (no date) (unknown) (unknown) Covid-19 + FLU A/B + RSV - PCR Stat (units unknown) (unknown) (unknown) (no date) (unknown) (unknown) Craniofacial structures: No displaced fracture. Sinuses are clear. 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 on 06/16/2022 at 13:02 ? ? (units unknown) (unknown) (unknown) (no date) (unknown) (unknown) Dictated by: Brandyn Davis M.D. on 06/16/2022 at 14:48 ? ? (units unknown) (unknown) (unknown) (no date) (unknown) (unknown) Dictated by: Brandyn Davis M.D. on 06/16/2022 at 14:52 ? ? (units unknown) (unknown) (unknown) (no date) (unknown) (unknown) Differential considered: Includes but not limited to neoplastic process, (units unknown) (unknown) (unknown) (no date) (unknown) (unknown) Discharge Plan (units unknown) (unknown) (unknown) (no date) (unknown) (unknown) Discontinued Medications (units unknown) (unknown) (unknown) (no date) (unknown) (unknown) Discussion: (units unknown) (unknown) (unknown) (no date) (unknown) (unknown) Documented By: JG (units unknown) (unknown) (unknown) (no date) (unknown) (unknown) Documented By: RLS (units unknown) (unknown) (unknown) (no date) (unknown) (unknown) ED Orders (units unknown) (unknown) (unknown) (no date) (unknown) (unknown) EKG-12 Lead Stat (units unknown) (unknown) (unknown) (no date) (unknown) (unknown) ENT: Slightly dry lips and mucous membranes (units unknown) (unknown) (unknown) (no date) (unknown) (unknown) ER Physician: Matt Swartz MD (units unknown) (unknown) (unknown) (no date) (unknown) (unknown) EXTREMITIES: No gross deformities. (units unknown) (unknown) (unknown) (no date) (unknown) (unknown) EYES: Pupils equal round (units unknown) (unknown) (unknown) (no date) (unknown) (unknown) Emergency Report (units unknown) (unknown) (unknown) (no date) (unknown) (unknown) Eos # (Auto) (0-450) /uL (units unknown) (unknown) (unknown) (no date) (unknown) (unknown) Eos # (Auto) 0 (0-450) /uL (units unknown) (unknown) (unknown) (no date) (unknown) (unknown) Eos % (Auto) (2-4) % (units unknown) (unknown) (unknown) (no date) (unknown) (unknown) Eos % (Auto) 0.1 L (2-4) % (units unknown) (unknown) (unknown) (no date) (unknown) (unknown) Estimated GFR > 60 (>60) mL/min (units unknown) (unknown) (unknown) (no date) (unknown) (unknown) Estimated GFR (>60) mL/min (units unknown) (unknown) (unknown) (no date) (unknown) (unknown) Exam Narrative: (units unknown) (unknown) (unknown) (no date) (unknown) (unknown) Exam documented above, pertinent findings include: Cachectic-appearing dry (units unknown) (unknown) (unknown) (no date) (unknown) (unknown) Exam (units unknown) (unknown) (unknown) (no date) (unknown) (unknown) FINDINGS:? (units unknown) (unknown) (unknown) (no date) (unknown) (unknown) GASTROINTESTINAL: Abdomen soft, non-tender (units unknown) (unknown) (unknown) (no date) (unknown) (unknown) GASTROINTESTINAL: negative nausea, vomiting, abdominal pain (units unknown) (unknown) (unknown) (no date) (unknown) (unknown) GENERAL: in no distress, not toxic not dyspneic, is cachectic appearing (units unknown) (unknown) (unknown) (no date) (unknown) (unknown) GENERAL: negative chills, positive fatigue, malaise, dizzy negative fever, (units unknown) (unknown) (unknown) (no date) (unknown) (unknown) : negative dysuria, frequency, hematuria (units unknown) (unknown) (unknown) (no date) (unknown) (unknown) General (units unknown) (unknown) (unknown) (no date) (unknown) (unknown) Globulin (1.7-4.1) g/dL (units unknown) (unknown) (unknown) (no date) (unknown) (unknown) Globulin 2.7 (1.7-4.1) g/dL (units unknown) (unknown) (unknown) (no date) (unknown) (unknown) Glucose (80-110) mg/dL (units unknown) (unknown) (unknown) (no date) (unknown) (unknown) Glucose 146 H (80-110) mg/dL (units unknown) (unknown) (unknown) (no date) (unknown) (unknown) HEAD: Normocephalic. (units unknown) (unknown) (unknown) (no date) (unknown) (unknown) HEENT: negative sinus pain, ear pain, sore throat (units unknown) (unknown) (unknown) (no date) (unknown) (unknown) HPI - Weakness (units unknown) (unknown) (unknown) (no date) (unknown) (unknown) HPI Narrative: (units unknown) (unknown) (unknown) (no date) (unknown) (unknown) Hct (41-53) % (units unknown) (unknown) (unknown) (no date) (unknown) (unknown) Hct 46.6 (41-53) % (units unknown) (unknown) (unknown) (no date) (unknown) (unknown) Hgb (13.5-17.5) g/dL (units unknown) (unknown) (unknown) (no date) (unknown) (unknown) Hgb 15.4 (13.5-17.5) g/dL (units unknown) (unknown) (unknown) (no date) (unknown) (unknown) History of Present Illness (units unknown) (unknown) (unknown) (no date) (unknown) (unknown) Home Medications (units unknown) (unknown) (unknown) (no date) (unknown) (unknown) IMPRESSION:? Bibasilar infectious or inflammatory pulmonary opacities.? (units unknown) (unknown) (unknown) (no date) (unknown) (unknown) IMPRESSION:? No acute intracranial abnormality.? If there is concern for (units unknown) (unknown) (unknown) (no date) (unknown) (unknown) IMPRESSION:? Possible mild right and retrocardiac opacities could represent (units unknown) (unknown) (unknown) (no date) (unknown) (unknown) INDICATIONS:? altered mental status (units unknown) (unknown) (unknown) (no date) (unknown) (unknown) INDICATIONS:? chest pain (units unknown) (unknown) (unknown) (no date) (unknown) (unknown) INDICATIONS:? suspected sepsis (units unknown) (unknown) (unknown) (no date) (unknown) (unknown) INR (0.9-1.3) (units unknown) (unknown) (unknown) (no date) (unknown) (unknown) INR 1.5 H (0.9-1.3) (units unknown) (unknown) (unknown) (no date) (unknown) (unknown) Image quality:? Good (units unknown) (unknown) (unknown) (no date) (unknown) (unknown) Imaging Data (units unknown) (unknown) (unknown) (no date) (unknown) (unknown) Imaging studies independently reviewed: Chest x-ray no acute process (units unknown) (unknown) (unknown) (no date) (unknown) (unknown) Independently reviewed EKG as above atrial sensed ventricular paced rhythm rate (units unknown) (unknown) (unknown) (no date) (unknown) (unknown) Influenza A (RT-PCR) (NEGATIVE) (units unknown) (unknown) (unknown) (no date) (unknown) (unknown) Influenza A (RT-PCR) Flu a negative (NEGATIVE) (units unknown) (unknown) (unknown) (no date) (unknown) (unknown) Influenza B (RT-PCR) (NEGATIVE) (units unknown) (unknown) (unknown) (no date) (unknown) (unknown) Influenza B (RT-PCR) Flu b negative (NEGATIVE) (units unknown) (unknown) (unknown) (no date) (unknown) (unknown) Initial Vital Signs (units unknown) (unknown) (unknown) (no date) (unknown) (unknown) Initial Vital Signs: (units unknown) (unknown) (unknown) (no date) (unknown) (unknown) [address] [address] (units unknown) (unknown) (unknown) (no date) (unknown) (unknown) [facility] (units unknown) (unknown) (unknown) (no date) (unknown) (unknown) Lab Data (units unknown) (unknown) (unknown) (no date) (unknown) (unknown) Lab Results (units unknown) (unknown) (unknown) (no date) (unknown) (unknown) Lab Test results independently reviewed as above. Pertinent findings: WBC 9.6 (units unknown) (unknown) (unknown) (no date) (unknown) (unknown) Labs: (units unknown) (unknown) (unknown) (no date) (unknown) (unknown) Lactate (0.7-2.1) mmol/L (units unknown) (unknown) (unknown) (no date) (unknown) (unknown) Lactate (Lactic Acid) Stat (units unknown) (unknown) (unknown) (no date) (unknown) (unknown) Lactate 4.3 H* (0.7-2.1) mmol/L (units unknown) (unknown) (unknown) (no date) (unknown) (unknown) Lucien Lan MD [Primary Care Provider] (units unknown) (unknown) (unknown) (no date) (unknown) (unknown) Last Infusion: 06/16/22 14:09 Dose: 0 mls/hr (units unknown) (unknown) (unknown) (no date) (unknown) (unknown) Lipase (23-300) U/L (units unknown) (unknown) (unknown) (no date) (unknown) (unknown) Lipase 45 (23-300) U/L (units unknown) (unknown) (unknown) (no date) (unknown) (unknown) Lipase Stat (units unknown) (unknown) (unknown) (no date) (unknown) (unknown) Loc: ED (units unknown) (unknown) (unknown) (no date) (unknown) (unknown) Lungs and pleura:? Bilateral bxtd-th-zzliltdn pleural effusions, slightly (units unknown) (unknown) (unknown) (no date) (unknown) (unknown) Lungs and pleura:? Low lung volumes.? Possible mild right and retrocardiac basal (units unknown) (unknown) (unknown) (no date) (unknown) (unknown) Lymph # (Auto) (1515-5410) /uL (units unknown) (unknown) (unknown) (no date) (unknown) (unknown) Lymph # (Auto) 400 L (9851-9145) /uL (units unknown) (unknown) (unknown) (no date) (unknown) (unknown) Lymph % (Auto) (25-40) % (units unknown) (unknown) (unknown) (no date) (unknown) (unknown) Lymph % (Auto) 4.6 L (25-40) % (units unknown) (unknown) (unknown) (no date) (unknown) (unknown) MCH (26-34) PG (units unknown) (unknown) (unknown) (no date) (unknown) (unknown) MCH 30.4 (26-34) PG (units unknown) (unknown) (unknown) (no date) (unknown) (unknown) MCHC (30-36) % (units unknown) (unknown) (unknown) (no date) (unknown) (unknown) MCHC 33.0 (30-36) % (units unknown) (unknown) (unknown) (no date) (unknown) (unknown) MCV (80-100) fL (units unknown) (unknown) (unknown) (no date) (unknown) (unknown) MCV 92.4 (80-100) fL (units unknown) (unknown) (unknown) (no date) (unknown) (unknown) MDM - Weakness (units unknown) (unknown) (unknown) (no date) (unknown) (unknown) MDM Narrative (units unknown) (unknown) (unknown) (no date) (unknown) (unknown) MDM (units unknown) (unknown) (unknown) (no date) (unknown) (unknown) MR#: [id number] (units unknown) (unknown) (unknown) (no date) (unknown) (unknown) MUSCULOSKELETAL: negative muscle or bony pain (units unknown) (unknown) (unknown) (no date) (unknown) (unknown) Mediastinum, heart, and esophagus:? No hiatal hernia.? Left chest wall pulse (units unknown) (unknown) (unknown) (no date) (unknown) (unknown) Mediastinum:? Mediastinal contours appear normal.? Heart size is normal.? (units unknown) (unknown) (unknown) (no date) (unknown) (unknown) Medical decision making narrative: (units unknown) (unknown) (unknown) (no date) (unknown) (unknown) Medical records reviewed: ER visits from a few days ago (units unknown) (unknown) (unknown) (no date) (unknown) (unknown) Medication Instructions Recorded Confirmed (units unknown) (unknown) (unknown) (no date) (unknown) (unknown) Qezz-ek-kadtcjal, (units unknown) (unknown) (unknown) (no date) (unknown) (unknown) Mode of arrival: Wheelchair (units unknown) (unknown) (unknown) (no date) (unknown) (unknown) [place] # (Auto) (0-900) /uL (units unknown) (unknown) (unknown) (no date) (unknown) (unknown) [place] # (Auto) 900 (0-900) /uL (units unknown) (unknown) (unknown) (no date) (unknown) (unknown) [place] % (Auto) (3-14) % (units unknown) (unknown) (unknown) (no date) (unknown) (unknown) [place] % (Auto) 9.4 (3-14) % (units unknown) (unknown) (unknown) (no date) (unknown) (unknown) NECK: Trachea midline. (units unknown) (unknown) (unknown) (no date) (unknown) (unknown) NEURO: AOx4. Clear speech no facial droop light touch intact to bilateral face (units unknown) (unknown) (unknown) (no date) (unknown) (unknown) NEUROLOGIC: negative weakness, numbness (units unknown) (unknown) (unknown) (no date) (unknown) (unknown) NT-Pro-B Natriuret Pep (<450) pg/mL (units unknown) (unknown) (unknown) (no date) (unknown) (unknown) NT-Pro-B Natriuret Pep 1430 H (<450) pg/mL (units unknown) (unknown) (unknown) (no date) (unknown) (unknown) Narrative (units unknown) (unknown) (unknown) (no date) (unknown) (unknown) Narrative: (units unknown) (unknown) (unknown) (no date) (unknown) (unknown) Neut # (Auto) (2632-5624) /uL (units unknown) (unknown) (unknown) (no date) (unknown) (unknown) Neut # (Auto) 8200 H (9624-8996) /uL (units unknown) (unknown) (unknown) (no date) (unknown) (unknown) Neut % (Auto) (50-75) % (units unknown) (unknown) (unknown) (no date) (unknown) (unknown) Neut % (Auto) 85.1 H (50-75) % (units unknown) (unknown) (unknown) (no date) (unknown) (unknown) No Action (units unknown) (unknown) (unknown) (no date) (unknown) (unknown) No Known Home Medications 12/20/20 12/20/20 (units unknown) (unknown) (unknown) (no date) (unknown) (unknown) No Known Home Medications (units unknown) (unknown) (unknown) (no date) (unknown) (unknown) Noncontrast 4.5 mm thick angled axial sections acquired from the foramen magnum (units unknown) (unknown) (unknown) (no date) (unknown) (unknown) Ondansetron HCl (Ondansetron 4 Mg/2 Ml Inj) 4 mg IV NOW PRN (units unknown) (unknown) (unknown) (no date) (unknown) (unknown) Ordered: (units unknown) (unknown) (unknown) (no date) (unknown) (unknown) Ordering Provider: Matt Swartz MD (units unknown) (unknown) (unknown) (no date) (unknown) (unknown) Orders (units unknown) (unknown) (unknown) (no date) (unknown) (unknown) Other findings as above.? Of note, the liver and spleen are significantly (units unknown) (unknown) (unknown) (no date) (unknown) (unknown) Oxygen Delivery Method 06/16/22 12:21 (units unknown) (unknown) (unknown) (no date) (unknown) (unknown) Oxygen Delivery Method Room Air (units unknown) (unknown) (unknown) (no date) (unknown) (unknown) Oxygen Delivery Method (units unknown) (unknown) (unknown) (no date) (unknown) (unknown) PRN Reason: Nausea And Vomiting (units unknown) (unknown) (unknown) (no date) (unknown) (unknown) PROCEDURE:? CT CHEST W CON (units unknown) (unknown) (unknown) (no date) (unknown) (unknown) PROCEDURE:? CT HEAD/BRAIN WO CON (units unknown) (unknown) (unknown) (no date) (unknown) (unknown) PROCEDURE:? XR CHEST 1V (units unknown) (unknown) (unknown) (no date) (unknown) (unknown) PSYCH: Not anxious, is cooperative (units unknown) (unknown) (unknown) (no date) (unknown) (unknown) PT (10.1-12.7) SECONDS (units unknown) (unknown) (unknown) (no date) (unknown) (unknown) PT 17.6 H (10.1-12.7) SECONDS (units unknown) (unknown) (unknown) (no date) (unknown) (unknown) Partial Thromboplastin Time Stat (units unknown) (unknown) (unknown) (no date) (unknown) (unknown) Patient History (units unknown) (unknown) (unknown) (no date) (unknown) (unknown) Patient brought in by from Cardiology office for routine office visit. I (units unknown) (unknown) (unknown) (no date) (unknown) (unknown) Patient: Yoseph Cardoso MR#: [id number] (units unknown) (unknown) (unknown) (no date) (unknown) (unknown) Patient: Yoseph Cardoso (units unknown) (unknown) (unknown) (no date) (unknown) (unknown) Plt Count (150-400) X103/uL (units unknown) (unknown) (unknown) (no date) (unknown) (unknown) Plt Count 222 (150-400) X103/uL (units unknown) (unknown) (unknown) (no date) (unknown) (unknown) Potassium (3.4-5.1) mmol/L (units unknown) (unknown) (unknown) (no date) (unknown) (unknown) Potassium 4.8 (3.4-5.1) mmol/L (units unknown) (unknown) (unknown) (no date) (unknown) (unknown) Prescriptions: (units unknown) (unknown) (unknown) (no date) (unknown) (unknown) Procalcitonin (<0.5) ng/mL (units unknown) (unknown) (unknown) (no date) (unknown) (unknown) Procalcitonin 3.27 H (<0.5) ng/mL (units unknown) (unknown) (unknown) (no date) (unknown) (unknown) Procalcitonin Stat (units unknown) (unknown) (unknown) (no date) (unknown) (unknown) Procedure: CT chest w con (units unknown) (unknown) (unknown) (no date) (unknown) (unknown) Procedure: CT head/brain wo con (units unknown) (unknown) (unknown) (no date) (unknown) (unknown) Procedure: XR chest 1V (units unknown) (unknown) (unknown) (no date) (unknown) (unknown) Prothrombin Time INR Stat (units unknown) (unknown) (unknown) (no date) (unknown) (unknown) Pulse Oximetry 100 96 (units unknown) (unknown) (unknown) (no date) (unknown) (unknown) Pulse Oximetry 91 93 (units unknown) (unknown) (unknown) (no date) (unknown) (unknown) Pulse Oximetry 96 96 (units unknown) (unknown) (unknown) (no date) (unknown) (unknown) Pulse Oximetry 98 06/16/22 12:21 (units unknown) (unknown) (unknown) (no date) (unknown) (unknown) Pulse Oximetry 98 93 (units unknown) (unknown) (unknown) (no date) (unknown) (unknown) Pulse Oximetry 98 (units unknown) (unknown) (unknown) (no date) (unknown) (unknown) Pulse Rate 70 72 (units unknown) (unknown) (unknown) (no date) (unknown) (unknown) Pulse Rate 71 73 (units unknown) (unknown) (unknown) (no date) (unknown) (unknown) Pulse Rate 73 75 (units unknown) (unknown) (unknown) (no date) (unknown) (unknown) Pulse Rate 76 (units unknown) (unknown) (unknown) (no date) (unknown) (unknown) Pulse Rate 78 06/16/22 12:21 (units unknown) (unknown) (unknown) (no date) (unknown) (unknown) Pulse Rate 78 79 (units unknown) (unknown) (unknown) (no date) (unknown) (unknown) RBC (4.5-5.9) X106/uL (units unknown) (unknown) (unknown) (no date) (unknown) (unknown) RBC 5.05 (4.5-5.9) X106/uL (units unknown) (unknown) (unknown) (no date) (unknown) (unknown) RDW (11.6-14.8) % (units unknown) (unknown) (unknown) (no date) (unknown) (unknown) RDW 14.4 (11.6-14.8) % (units unknown) (unknown) (unknown) (no date) (unknown) (unknown) RESPIRATORY: Clear to auscultation. Breath sounds equal bilaterally. No wheezes, (units unknown) (unknown) (unknown) (no date) (unknown) (unknown) RESPIRATORY: negative dyspnea, cough (units unknown) (unknown) (unknown) (no date) (unknown) (unknown) ROS Unobtainable: All systems reviewed + are unremarkable except as noted in HPI (units unknown) (unknown) (unknown) (no date) (unknown) (unknown) RSV (PCR) (Negative) (units unknown) (unknown) (unknown) (no date) (unknown) (unknown) RSV (PCR) Negative (Negative) (units unknown) (unknown) (unknown) (no date) (unknown) (unknown) RT Consult Eval and Treat NOW (units unknown) (unknown) (unknown) (no date) (unknown) (unknown) Radiologist Impression: (units unknown) (unknown) (unknown) (no date) (unknown) (unknown) Re-evaluations: (units unknown) (unknown) (unknown) (no date) (unknown) (unknown) Referrals: (units unknown) (unknown) (unknown) (no date) (unknown) (unknown) Related Data (units unknown) (unknown) (unknown) (no date) (unknown) (unknown) Respiratory Rate 17 16 (units unknown) (unknown) (unknown) (no date) (unknown) (unknown) Respiratory Rate 20 13 (units unknown) (unknown) (unknown) (no date) (unknown) (unknown) Respiratory Rate 22 06/16/22 12:21 (units unknown) (unknown) (unknown) (no date) (unknown) (unknown) Respiratory Rate 22 14 (units unknown) (unknown) (unknown) (no date) (unknown) (unknown) Respiratory Rate 22 (units unknown) (unknown) (unknown) (no date) (unknown) (unknown) Review of Systems (units unknown) (unknown) (unknown) (no date) (unknown) (unknown) SARS-CoV-2 (PCR) (Negative) (units unknown) (unknown) (unknown) (no date) (unknown) (unknown) SARS-CoV-2 (PCR) Negative (Negative) (units unknown) (unknown) (unknown) (no date) (unknown) (unknown) SKIN: Warm and dry (units unknown) (unknown) (unknown) (no date) (unknown) (unknown) SKIN: negative rash, skin lesions (units unknown) (unknown) (unknown) (no date) (unknown) (unknown) Signed By: (units unknown) (unknown) (unknown) (no date) (unknown) (unknown) Signed (units unknown) (unknown) (unknown) (no date) (unknown) (unknown) Smoking Status: Smoker, status unknown (units unknown) (unknown) (unknown) (no date) (unknown) (unknown) Social History (units unknown) (unknown) (unknown) (no date) (unknown) (unknown) Sodium (137-145) mmol/L (units unknown) (unknown) (unknown) (no date) (unknown) (unknown) Sodium 135 L (137-145) mmol/L (units unknown) (unknown) (unknown) (no date) (unknown) (unknown) Sodium Chloride (Normal Saline 0.9%) 1,000 mls @ 1,000 mls/hr IV BOLUS ONE (units unknown) (unknown) (unknown) (no date) (unknown) (unknown) Source: patient and family (units unknown) (unknown) (unknown) (no date) (unknown) (unknown) Stated complaint: Pain near pacemaker (units unknown) (unknown) (unknown) (no date) (unknown) (unknown) Stop: 06/16/22 13:43 (units unknown) (unknown) (unknown) (no date) (unknown) (unknown) Substance Use Type: does not use (units unknown) (unknown) (unknown) (no date) (unknown) (unknown) Surgical changes and devices:? Left chest wall pulse generator with dual-chamber (units unknown) (unknown) (unknown) (no date) (unknown) (unknown) TECHNIQUE:? One view of the chest was acquired.? (units unknown) (unknown) (unknown) (no date) (unknown) (unknown) TECHNIQUE:? (units unknown) (unknown) (unknown) (no date) (unknown) (unknown) There is also heterogeneous appearance of the spleen. (units unknown) (unknown) (unknown) (no date) (unknown) (unknown) Time Seen by Provider: 06/16/22 12:46 (units unknown) (unknown) (unknown) (no date) (unknown) (unknown) Total Bilirubin (0.2-1.3) mg/dL (units unknown) (unknown) (unknown) (no date) (unknown) (unknown) Total Bilirubin 2.1 H (0.2-1.3) mg/dL (units unknown) (unknown) (unknown) (no date) (unknown) (unknown) Total Creatine Kinase (55-170) U/L (units unknown) (unknown) (unknown) (no date) (unknown) (unknown) Total Creatine Kinase 53 L (55-170) U/L (units unknown) (unknown) (unknown) (no date) (unknown) (unknown) Total Protein (6.3-8.2) g/dL (units unknown) (unknown) (unknown) (no date) (unknown) (unknown) Total Protein 5.8 L (6.3-8.2) g/dL (units unknown) (unknown) (unknown) (no date) (unknown) (unknown) Treatments: (units unknown) (unknown) (unknown) (no date) (unknown) (unknown) Troponin + CK Cardiac Panel Stat (units unknown) (unknown) (unknown) (no date) (unknown) (unknown) Troponin I < 0.012 (0.01-0.034) ng/mL (units unknown) (unknown) (unknown) (no date) (unknown) (unknown) Troponin I (0.01-0.034) ng/mL (units unknown) (unknown) (unknown) (no date) (unknown) (unknown) Upper abdomen:? Heterogeneous appearance of the liver, not well evaluated on (units unknown) (unknown) (unknown) (no date) (unknown) (unknown) Vital Signs - 8 hr (units unknown) (unknown) (unknown) (no date) (unknown) (unknown) Vital Signs (units unknown) (unknown) (unknown) (no date) (unknown) (unknown) Vital signs: (units unknown) (unknown) (unknown) (no date) (unknown) (unknown) Volume:? Vascular calcifications. Periventricular white matter disease is (units unknown) (unknown) (unknown) (no date) (unknown) (unknown) WBC (4.5-11.0) X103/uL (units unknown) (unknown) (unknown) (no date) (unknown) (unknown) WBC 9.6 (4.5-11.0) X103/uL (units unknown) (unknown) (unknown) (no date) (unknown) (unknown) [facility] ER for evaluation of dark urine. CT abdomen pelvis were done, (units unknown) (unknown) (unknown) (no date) (unknown) (unknown) XR chest 1V Stat (units unknown) (unknown) (unknown) (no date) (unknown) (unknown) XRay Report (units unknown) (unknown) (unknown) (no date) (unknown) (unknown) [Embedded Image Not Available] (units unknown) (unknown) (unknown) (no date) (unknown) (unknown) [From Prevnar] and feet x (units unknown) (unknown) (unknown) (no date) (unknown) (unknown) after. (units unknown) (unknown) (unknown) (no date) (unknown) (unknown) alcohol intake frequency: a few times a month (units unknown) (unknown) (unknown) (no date) (unknown) (unknown) and below (units unknown) (unknown) (unknown) (no date) (unknown) (unknown) and/or (units unknown) (unknown) (unknown) (no date) (unknown) (unknown) appear (units unknown) (unknown) (unknown) (no date) (unknown) (unknown) appearing (units unknown) (unknown) (unknown) (no date) (unknown) (unknown) assess for resolution. (units unknown) (unknown) (unknown) (no date) (unknown) (unknown) atelectasis (units unknown) (unknown) (unknown) (no date) (unknown) (unknown) commonly seen (units unknown) (unknown) (unknown) (no date) (unknown) (unknown) conjugate to of hands (units unknown) (unknown) (unknown) (no date) (unknown) (unknown) consider nonemergent MRI if necessary.? (units unknown) (unknown) (unknown) (no date) (unknown) (unknown) coronal and sagittal reformats and 7 mm axial MIP were acquired.? For radiation (units unknown) (unknown) (unknown) (no date) (unknown) (unknown) criteria. (units unknown) (unknown) (unknown) (no date) (unknown) (unknown) denies any chest pain back pain abdominal pain or headache. (units unknown) (unknown) (unknown) (no date) (unknown) (unknown) dose (units unknown) (unknown) (unknown) (no date) (unknown) (unknown) electrode leads in place. (units unknown) (unknown) (unknown) (no date) (unknown) (unknown) facial droop. Fast exam is negative. Cardiology does not feel this is cardiac (units unknown) (unknown) (unknown) (no date) (unknown) (unknown) facial droop. Fast exam is negative. Patient denies any chest pain abdominal (units unknown) (unknown) (unknown) (no date) (unknown) (unknown) failure thrive/dementia/Par kinson's (units unknown) (unknown) (unknown) (no date) (unknown) (unknown) following (units unknown) (unknown) (unknown) (no date) (unknown) (unknown) from the (units unknown) (unknown) (unknown) (no date) (unknown) (unknown) generator (units unknown) (unknown) (unknown) (no date) (unknown) (unknown) greater on the (units unknown) (unknown) (unknown) (no date) (unknown) (unknown) hands with strong equal home care nurse 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 (units unknown) (unknown) (unknown) (no date) (unknown) (unknown) health/weight loss cachexia and balance issues. He had concern for neoplastic (units unknown) (unknown) (unknown) (no date) (unknown) (unknown) hemoglobin 15.4 hematocrit 46.6 platelets 222 PT 17.6 INR 1.5 PTT 38 sodium 135 (units unknown) (unknown) (unknown) (no date) (unknown) (unknown) heterogeneous (units unknown) (unknown) (unknown) (no date) (unknown) (unknown) history, and (units unknown) (unknown) (unknown) (no date) (unknown) (unknown) intact. (units unknown) (unknown) (unknown) (no date) (unknown) (unknown) kV according to patient size.? (units unknown) (unknown) (unknown) (no date) (unknown) (unknown) lactic acid have been ordered (units unknown) (unknown) (unknown) (no date) (unknown) (unknown) maintained. (units unknown) (unknown) (unknown) (no date) (unknown) (unknown) moderate (units unknown) (unknown) (unknown) (no date) (unknown) (unknown) no acute process other than diverticulosis without diverticulitis. states (units unknown) (unknown) (unknown) (no date) (unknown) (unknown) opacities.? No pleural effusions.? (units unknown) (unknown) (unknown) (no date) (unknown) (unknown) or early airspace disease.? Consider future imaging surveillance to assess for (units unknown) (unknown) (unknown) (no date) (unknown) (unknown) pain back pain headache (units unknown) (unknown) (unknown) (no date) (unknown) (unknown) parenchymal (units unknown) (unknown) (unknown) (no date) (unknown) (unknown) pathology, consider MRI. (units unknown) (unknown) (unknown) (no date) (unknown) (unknown) patient has had 30 lb weight loss in the past few months with night sweats it in (units unknown) (unknown) (unknown) (no date) (unknown) (unknown) patient (units unknown) (unknown) (unknown) (no date) (unknown) (unknown) pneumococcal 7-valent AdvReac Intermediate swelling Verified 06/16/22 12:46 (units unknown) (unknown) (unknown) (no date) (unknown) (unknown) positive night sweats. Positive weight loss (units unknown) (unknown) (unknown) (no date) (unknown) (unknown) potassium 4.8 BUN 34 creatinine 0.99 glucose 146 lactic acid 4.3. BNP 1430 (units unknown) (unknown) (unknown) (no date) (unknown) (unknown) process. I spoke with dr gillette. However, patient was recently seen at (units unknown) (unknown) (unknown) (no date) (unknown) (unknown) pulmonary apices to the posterior costophrenic angles.? 1 mm axial lung, 5 mm (units unknown) (unknown) (unknown) (no date) (unknown) (unknown) rales, or rhonchi. (units unknown) (unknown) (unknown) (no date) (unknown) (unknown) reduction, the following was used:? automated exposure control, adjustment of mA (units unknown) (unknown) (unknown) (no date) (unknown) (unknown) related. Patient here for routine annual cardiac workup/checkup. Patient (units unknown) (unknown) (unknown) (no date) (unknown) (unknown) resolution. (units unknown) (unknown) (unknown) (no date) (unknown) (unknown) right greater than left pleural effusions.? Consider future imaging surveillance (units unknown) (unknown) (unknown) (no date) (unknown) (unknown) right.? Bibasilar opacities and nodularity also present. (units unknown) (unknown) (unknown) (no date) (unknown) (unknown) shuffled gait. Generalized weakness and malaise. However no slurred speech or (units unknown) (unknown) (unknown) (no date) (unknown) (unknown) size (units unknown) (unknown) (unknown) (no date) (unknown) (unknown) size.? 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 Patient has history of melanoma. Patient has had recently (units unknown) (unknown) (unknown) (no date) (unknown) (unknown) thick (units unknown) (unknown) (unknown) (no date) (unknown) (unknown) this study.? (units unknown) (unknown) (unknown) (no date) (unknown) (unknown) to the (units unknown) (unknown) (unknown) (no date) (unknown) (unknown) to (units unknown) (unknown) (unknown) (no date) (unknown) (unknown) troponin less than 0.012, procalcitonin 3.27 (units unknown) (unknown) (unknown) (no date) (unknown) (unknown) unremarkable.? (units unknown) (unknown) (unknown) (no date) (unknown) (unknown) vertex, with coronal and sagittal reformats.? For radiation dose reduction, the (units unknown) (unknown) (unknown) (no date) (unknown) (unknown) visit from a few days ago (units unknown) (unknown) (unknown) (no date) (unknown) (unknown) was used:? automated exposure control, adjustment of mA and/or kV according to (units unknown) (unknown) (unknown) (no date) (unknown) (unknown) which may be related to liver disease.? Please correlate with LFTs, clinical (units unknown) (unknown) (unknown) (no date) (unknown) (unknown) with chronic microangiopathy. Volume loss is present. These findings are (units unknown) (unknown) (unknown) (no date) (unknown) (unknown) with electrode leads.? Coronary calcifications.? No pathologic adenopathy by (units unknown) (unknown) Result panel 201 (unknown) (no date) (unknown) (unknown) (no value) (units unknown) (unknown) (unknown) (no date) (unknown) (unknown) [id number] (units unknown) (unknown) (unknown) (no date) (unknown) (unknown) 06/16/22 06/16/22 06/16/22 Range/Units (units unknown) (unknown) (unknown) (no date) (unknown) (unknown) 06/16/22 06/16/22 Range/Units (units unknown) (unknown) (unknown) (no date) (unknown) (unknown) 06/16/22 12:35 (units unknown) (unknown) (unknown) (no date) (unknown) (unknown) 06/16/22 12:45 (units unknown) (unknown) (unknown) (no date) (unknown) (unknown) 06/16/22 13:01 (units unknown) (unknown) (unknown) (no date) (unknown) (unknown) 06/16/22 13:13 (units unknown) (unknown) (unknown) (no date) (unknown) (unknown) 06/16/22 13:24 (units unknown) (unknown) (unknown) (no date) (unknown) (unknown) 06/16/22 13:32 (units unknown) (unknown) (unknown) (no date) (unknown) (unknown) 06/16/22 (units unknown) (unknown) (unknown) (no date) (unknown) (unknown) [address] [place] [address] (units unknown) (unknown) (unknown) (no date) (unknown) (unknown) 12:21 06/16/22 (units unknown) (unknown) (unknown) (no date) (unknown) (unknown) 12:30 06/16/22 (units unknown) (unknown) (unknown) (no date) (unknown) (unknown) 12:30 (units unknown) (unknown) (unknown) (no date) (unknown) (unknown) 12:35 12:35 12:35 (units unknown) (unknown) (unknown) (no date) (unknown) (unknown) 12:35 12:35 (units unknown) (unknown) (unknown) (no date) (unknown) (unknown) 12:45 06/16/22 (units unknown) (unknown) (unknown) (no date) (unknown) (unknown) 13:00 06/16/22 (units unknown) (unknown) (unknown) (no date) (unknown) (unknown) 13:00 (units unknown) (unknown) (unknown) (no date) (unknown) (unknown) 13:15 06/16/22 (units unknown) (unknown) (unknown) (no date) (unknown) (unknown) 13:15 (units unknown) (unknown) (unknown) (no date) (unknown) (unknown) 13:30 06/16/22 (units unknown) (unknown) (unknown) (no date) (unknown) (unknown) 13:45 06/16/22 (units unknown) (unknown) (unknown) (no date) (unknown) (unknown) 13:46 06/16/22 (units unknown) (unknown) (unknown) (no date) (unknown) (unknown) 13:46 (units unknown) (unknown) (unknown) (no date) (unknown) (unknown) 14:00 06/16/22 (units unknown) (unknown) (unknown) (no date) (unknown) (unknown) 14:00 (units unknown) (unknown) (unknown) (no date) (unknown) (unknown) 4 mos (units unknown) (unknown) (unknown) (no date) (unknown) (unknown) 72 (units unknown) (unknown) (unknown) (no date) (unknown) (unknown) ? (units unknown) (unknown) (unknown) (no date) (unknown) (unknown) ALT (<50) IU/L (units unknown) (unknown) (unknown) (no date) (unknown) (unknown) ALT 63 H (<50) IU/L (units unknown) (unknown) (unknown) (no date) (unknown) (unknown) APTT (26-36) SECONDS (units unknown) (unknown) (unknown) (no date) (unknown) (unknown) APTT 38 H (26-36) SECONDS (units unknown) (unknown) (unknown) (no date) (unknown) (unknown) AST (17-59) IU/L (units unknown) (unknown) (unknown) (no date) (unknown) (unknown) AST 61 H (17-59) IU/L (units unknown) (unknown) (unknown) (no date) (unknown) (unknown) Accession Number: [id number] ?? (units unknown) (unknown) (unknown) (no date) (unknown) (unknown) Accession Number: [id number] ?? (units unknown) (unknown) (unknown) (no date) (unknown) (unknown) Accession Number: [id number] ?? (units unknown) (unknown) (unknown) (no date) (unknown) (unknown) Acct:[id number] (units unknown) (unknown) (unknown) (no date) (unknown) (unknown) Admin: 06/16/22 13:02 Dose: 1,000 mls/hr (units unknown) (unknown) (unknown) (no date) (unknown) (unknown) Admit Date/Time: 06/16/22 15:35 (units unknown) (unknown) (unknown) (no date) (unknown) (unknown) After history and exam CT head CT chest CBC CMP BNP troponin procalcitonin (units unknown) (unknown) (unknown) (no date) (unknown) (unknown) After the administration of intravenous contrast, 5 mm thick sections acquired (units unknown) (unknown) (unknown) (no date) (unknown) (unknown) Age/Sex: 86 / M (units unknown) (unknown) (unknown) (no date) (unknown) (unknown) Agrees with IV hydration and repeat lactic acid. Blood cultures to be done. (units unknown) (unknown) (unknown) (no date) (unknown) (unknown) Albumin (3.5-5.0) g/dL (units unknown) (unknown) (unknown) (no date) (unknown) (unknown) Albumin 3.1 L (3.5-5.0) g/dL (units unknown) (unknown) (unknown) (no date) (unknown) (unknown) Albumin/Globulin Ratio (1.0-2.8) (units unknown) (unknown) (unknown) (no date) (unknown) (unknown) Albumin/Globulin Ratio 1.1 (1.0-2.8) (units unknown) (unknown) (unknown) (no date) (unknown) (unknown) Alkaline Phosphatase (38-126) U/L (units unknown) (unknown) (unknown) (no date) (unknown) (unknown) Alkaline Phosphatase 428 H (38-126) U/L (units unknown) (unknown) (unknown) (no date) (unknown) (unknown) Allergies (units unknown) (unknown) (unknown) (no date) (unknown) (unknown) Allergy/AdvReac Type Severity Reaction Status Date / Time (units unknown) (unknown) (unknown) (no date) (unknown) (unknown) [place] [address] (units unknown) (unknown) (unknown) (no date) (unknown) (unknown) Approved by: Brandyn Davis M.D. on 06/16/2022 at 13:03 ? (units unknown) (unknown) (unknown) (no date) (unknown) (unknown) Approved by: Brandyn Davis M.D. on 06/16/2022 at 14:52 ? (units unknown) (unknown) (unknown) (no date) (unknown) (unknown) Approved by: Brandyn Davis M.D. on 06/16/2022 at 14:54 ? (units unknown) (unknown) (unknown) (no date) (unknown) (unknown) At this time uncertain source of patient's liver enzymes and acidosis. Not (units unknown) (unknown) (unknown) (no date) (unknown) (unknown) BACK: No flank tenderness. (units unknown) (unknown) (unknown) (no date) (unknown) (unknown) BNP [NT-proBNP (BNP-Adult 18+)] Stat (units unknown) (unknown) (unknown) (no date) (unknown) (unknown) BUN (9-20) mg/dL (units unknown) (unknown) (unknown) (no date) (unknown) (unknown) BUN 34 H (9-20) mg/dL (units unknown) (unknown) (unknown) (no date) (unknown) (unknown) BUN/Creatinine Ratio (6-22) (units unknown) (unknown) (unknown) (no date) (unknown) (unknown) BUN/Creatinine Ratio 34.3 H (6-22) (units unknown) (unknown) (unknown) (no date) (unknown) (unknown) Baso # (Auto) (0-100) /uL (units unknown) (unknown) (unknown) (no date) (unknown) (unknown) Baso # (Auto) 100 (0-100) /uL (units unknown) (unknown) (unknown) (no date) (unknown) (unknown) Baso % (Auto) (0-2) % (units unknown) (unknown) (unknown) (no date) (unknown) (unknown) Baso % (Auto) 0.8 (0-2) % (units unknown) (unknown) (unknown) (no date) (unknown) (unknown) Blood Culture Stat (units unknown) (unknown) (unknown) (no date) (unknown) (unknown) Blood Pressure 134/61 141/67 H (units unknown) (unknown) (unknown) (no date) (unknown) (unknown) Blood Pressure 141/57 H (units unknown) (unknown) (unknown) (no date) (unknown) (unknown) Blood Pressure 142/67 H (units unknown) (unknown) (unknown) (no date) (unknown) (unknown) Blood Pressure 144/68 H 06/16/22 12:21 (units unknown) (unknown) (unknown) (no date) (unknown) (unknown) Blood Pressure 144/68 H 144/68 H (units unknown) (unknown) (unknown) (no date) (unknown) (unknown) Blood Pressure 145/69 H (units unknown) (unknown) (unknown) (no date) (unknown) (unknown) Bones and chest wall:? No suspicious bony lesions.? Overlying soft tissues (units unknown) (unknown) (unknown) (no date) (unknown) (unknown) Bones:? No acute or suspicious osseous abnormality. (units unknown) (unknown) (unknown) (no date) (unknown) (unknown) Brain: No intracranial hemorrhage. Amaro-white differentiation is grossly (units unknown) (unknown) (unknown) (no date) (unknown) (unknown) CARDIOVASCULAR: Regular rate and rhythm without murmurs (units unknown) (unknown) (unknown) (no date) (unknown) (unknown) CARDIOVASCULAR: negative chest pain, palpitations (units unknown) (unknown) (unknown) (no date) (unknown) (unknown) CC: Weakness weight loss night sweats (units unknown) (unknown) (unknown) (no date) (unknown) (unknown) CK-MB (CK-2) Rel Index TNP (units unknown) (unknown) (unknown) (no date) (unknown) (unknown) CK-MB (CK-2) Rel Index (units unknown) (unknown) (unknown) (no date) (unknown) (unknown) CK-MB (CK-2) TNP (units unknown) (unknown) (unknown) (no date) (unknown) (unknown) CK-MB (CK-2) (units unknown) (unknown) (unknown) (no date) (unknown) (unknown) COMPARISON:? [facility], CR, XR CHEST 1V, 06/16/2022, 12:43. (units unknown) (unknown) (unknown) (no date) (unknown) (unknown) COMPARISON:? None. (units unknown) (unknown) (unknown) (no date) (unknown) (unknown) CSF spaces: Basal cisterns are patent. Lateral ventricles are symmetric. (units unknown) (unknown) (unknown) (no date) (unknown) (unknown) CT Scan Report (units unknown) (unknown) (unknown) (no date) (unknown) (unknown) CT chest w con Stat (units unknown) (unknown) (unknown) (no date) (unknown) (unknown) CT head/brain wo con Stat (units unknown) (unknown) (unknown) (no date) (unknown) (unknown) CT scan - chest: (units unknown) (unknown) (unknown) (no date) (unknown) (unknown) CT scan - head: (units unknown) (unknown) (unknown) (no date) (unknown) (unknown) Calcium (8.4-10.2) mg/dL (units unknown) (unknown) (unknown) (no date) (unknown) (unknown) Calcium 8.1 L (8.4-10.2) mg/dL (units unknown) (unknown) (unknown) (no date) (unknown) (unknown) Carbon Dioxide (22-32) mmol/L (units unknown) (unknown) (unknown) (no date) (unknown) (unknown) Carbon Dioxide 28 (22-32) mmol/L (units unknown) (unknown) (unknown) (no date) (unknown) (unknown) Chest wall and thyroid:? Unremarkable (units unknown) (unknown) (unknown) (no date) (unknown) (unknown) Chest x-ray: (units unknown) (unknown) (unknown) (no date) (unknown) (unknown) Chief complaint: Weakness (units unknown) (unknown) (unknown) (no date) (unknown) (unknown) Chloride (98-107) mmol/L (units unknown) (unknown) (unknown) (no date) (unknown) (unknown) Chloride 99 (98-107) mmol/L (units unknown) (unknown) (unknown) (no date) (unknown) (unknown) Complete Blood Count AUTO DIFF Stat (units unknown) (unknown) (unknown) (no date) (unknown) (unknown) Complicating co-morbidities: History of melanoma (units unknown) (unknown) (unknown) (no date) (unknown) (unknown) Comprehensive Metabolic Panel Stat (units unknown) (unknown) (unknown) (no date) (unknown) (unknown) Consultations: 3:36 p.m.. Spoke with hospitalist, Dr. Parker, agrees patient (units unknown) (unknown) (unknown) (no date) (unknown) (unknown) Course (units unknown) (unknown) (unknown) (no date) (unknown) (unknown) Covid-19 + FLU A/B + RSV - PCR Stat (units unknown) (unknown) (unknown) (no date) (unknown) (unknown) Craniofacial structures: No displaced fracture. Sinuses are clear. 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 on 06/16/2022 at 13:02 ? ? (units unknown) (unknown) (unknown) (no date) (unknown) (unknown) Dictated by: Brandyn Davis M.D. on 06/16/2022 at 14:48 ? ? (units unknown) (unknown) (unknown) (no date) (unknown) (unknown) Dictated by: Brandyn Davis M.D. on 06/16/2022 at 14:52 ? ? (units unknown) (unknown) (unknown) (no date) (unknown) (unknown) Differential considered: Includes but not limited to neoplastic process, (units unknown) (unknown) (unknown) (no date) (unknown) (unknown) Discharge Plan (units unknown) (unknown) (unknown) (no date) (unknown) (unknown) Discontinued Medications (units unknown) (unknown) (unknown) (no date) (unknown) (unknown) Discussion: Appropriate for admission. Patient would benefit observation for (units unknown) (unknown) (unknown) (no date) (unknown) (unknown) Documented By: JG (units unknown) (unknown) (unknown) (no date) (unknown) (unknown) Documented By: RLS (units unknown) (unknown) (unknown) (no date) (unknown) (unknown) ED Orders (units unknown) (unknown) (unknown) (no date) (unknown) (unknown) EKG-12 Lead Stat (units unknown) (unknown) (unknown) (no date) (unknown) (unknown) ENT: Slightly dry lips and mucous membranes (units unknown) (unknown) (unknown) (no date) (unknown) (unknown) ER Physician: Matt Swartz MD (units unknown) (unknown) (unknown) (no date) (unknown) (unknown) EXTREMITIES: No gross deformities. (units unknown) (unknown) (unknown) (no date) (unknown) (unknown) EYES: Pupils equal round (units unknown) (unknown) (unknown) (no date) (unknown) (unknown) Emergency Report (units unknown) (unknown) (unknown) (no date) (unknown) (unknown) Eos # (Auto) (0-450) /uL (units unknown) (unknown) (unknown) (no date) (unknown) (unknown) Eos # (Auto) 0 (0-450) /uL (units unknown) (unknown) (unknown) (no date) (unknown) (unknown) Eos % (Auto) (2-4) % (units unknown) (unknown) (unknown) (no date) (unknown) (unknown) Eos % (Auto) 0.1 L (2-4) % (units unknown) (unknown) (unknown) (no date) (unknown) (unknown) Estimated GFR > 60 (>60) mL/min (units unknown) (unknown) (unknown) (no date) (unknown) (unknown) Estimated GFR (>60) mL/min (units unknown) (unknown) (unknown) (no date) (unknown) (unknown) Exam Narrative: (units unknown) (unknown) (unknown) (no date) (unknown) (unknown) Exam documented above, pertinent findings include: Cachectic-appearing dry (units unknown) (unknown) (unknown) (no date) (unknown) (unknown) Exam (units unknown) (unknown) (unknown) (no date) (unknown) (unknown) FINDINGS:? (units unknown) (unknown) (unknown) (no date) (unknown) (unknown) GASTROINTESTINAL: Abdomen soft, non-tender (units unknown) (unknown) (unknown) (no date) (unknown) (unknown) GASTROINTESTINAL: negative nausea, vomiting, abdominal pain (units unknown) (unknown) (unknown) (no date) (unknown) (unknown) GENERAL: in no distress, not toxic not dyspneic, is cachectic appearing (units unknown) (unknown) (unknown) (no date) (unknown) (unknown) GENERAL: negative chills, positive fatigue, malaise, dizzy negative fever, (units unknown) (unknown) (unknown) (no date) (unknown) (unknown) : negative dysuria, frequency, hematuria (units unknown) (unknown) (unknown) (no date) (unknown) (unknown) General (units unknown) (unknown) (unknown) (no date) (unknown) (unknown) Globulin (1.7-4.1) g/dL (units unknown) (unknown) (unknown) (no date) (unknown) (unknown) Globulin 2.7 (1.7-4.1) g/dL (units unknown) (unknown) (unknown) (no date) (unknown) (unknown) Glucose (80-110) mg/dL (units unknown) (unknown) (unknown) (no date) (unknown) (unknown) Glucose 146 H (80-110) mg/dL (units unknown) (unknown) (unknown) (no date) (unknown) (unknown) HEAD: Normocephalic. (units unknown) (unknown) (unknown) (no date) (unknown) (unknown) HEENT: negative sinus pain, ear pain, sore throat (units unknown) (unknown) (unknown) (no date) (unknown) (unknown) HPI - Weakness (units unknown) (unknown) (unknown) (no date) (unknown) (unknown) HPI Narrative: (units unknown) (unknown) (unknown) (no date) (unknown) (unknown) Hct (41-53) % (units unknown) (unknown) (unknown) (no date) (unknown) (unknown) Hct 46.6 (41-53) % (units unknown) (unknown) (unknown) (no date) (unknown) (unknown) Hgb (13.5-17.5) g/dL (units unknown) (unknown) (unknown) (no date) (unknown) (unknown) Hgb 15.4 (13.5-17.5) g/dL (units unknown) (unknown) (unknown) (no date) (unknown) (unknown) History of Present Illness (units unknown) (unknown) (unknown) (no date) (unknown) (unknown) Home Medications (units unknown) (unknown) (unknown) (no date) (unknown) (unknown) IMPRESSION:? Bibasilar infectious or inflammatory pulmonary opacities.? (units unknown) (unknown) (unknown) (no date) (unknown) (unknown) IMPRESSION:? No acute intracranial abnormality.? If there is concern for (units unknown) (unknown) (unknown) (no date) (unknown) (unknown) IMPRESSION:? Possible mild right and retrocardiac opacities could represent (units unknown) (unknown) (unknown) (no date) (unknown) (unknown) INDICATIONS:? altered mental status (units unknown) (unknown) (unknown) (no date) (unknown) (unknown) INDICATIONS:? chest pain (units unknown) (unknown) (unknown) (no date) (unknown) (unknown) INDICATIONS:? suspected sepsis (units unknown) (unknown) (unknown) (no date) (unknown) (unknown) INR (0.9-1.3) (units unknown) (unknown) (unknown) (no date) (unknown) (unknown) INR 1.5 H (0.9-1.3) (units unknown) (unknown) (unknown) (no date) (unknown) (unknown) Image quality:? Good (units unknown) (unknown) (unknown) (no date) (unknown) (unknown) Imaging Data (units unknown) (unknown) (unknown) (no date) (unknown) (unknown) Imaging studies independently reviewed: Chest x-ray no acute process, CT head (units unknown) (unknown) (unknown) (no date) (unknown) (unknown) Independently reviewed EKG as above atrial sensed ventricular paced rhythm rate (units unknown) (unknown) (unknown) (no date) (unknown) (unknown) Influenza A (RT-PCR) (NEGATIVE) (units unknown) (unknown) (unknown) (no date) (unknown) (unknown) Influenza A (RT-PCR) Flu a negative (NEGATIVE) (units unknown) (unknown) (unknown) (no date) (unknown) (unknown) Influenza B (RT-PCR) (NEGATIVE) (units unknown) (unknown) (unknown) (no date) (unknown) (unknown) Influenza B (RT-PCR) Flu b negative (NEGATIVE) (units unknown) (unknown) (unknown) (no date) (unknown) (unknown) Initial Vital Signs (units unknown) (unknown) (unknown) (no date) (unknown) (unknown) Initial Vital Signs: (units unknown) (unknown) (unknown) (no date) (unknown) (unknown) [address] [address] (units unknown) (unknown) (unknown) (no date) (unknown) (unknown) [facility] (units unknown) (unknown) (unknown) (no date) (unknown) (unknown) Lab Data (units unknown) (unknown) (unknown) (no date) (unknown) (unknown) Lab Results (units unknown) (unknown) (unknown) (no date) (unknown) (unknown) Lab Test results independently reviewed as above. Pertinent findings: WBC 9.6 (units unknown) (unknown) (unknown) (no date) (unknown) (unknown) Labs: (units unknown) (unknown) (unknown) (no date) (unknown) (unknown) Lactate (0.7-2.1) mmol/L (units unknown) (unknown) (unknown) (no date) (unknown) (unknown) Lactate (Lactic Acid) Stat (units unknown) (unknown) (unknown) (no date) (unknown) (unknown) Lactate 4.3 H* (0.7-2.1) mmol/L (units unknown) (unknown) (unknown) (no date) (unknown) (unknown) Lucien Lan MD [Primary Care Provider] (units unknown) (unknown) (unknown) (no date) (unknown) (unknown) Last Infusion: 06/16/22 14:09 Dose: 0 mls/hr (units unknown) (unknown) (unknown) (no date) (unknown) (unknown) Lipase (23-300) U/L (units unknown) (unknown) (unknown) (no date) (unknown) (unknown) Lipase 45 (23-300) U/L (units unknown) (unknown) (unknown) (no date) (unknown) (unknown) Lipase Stat (units unknown) (unknown) (unknown) (no date) (unknown) (unknown) Loc: ED (units unknown) (unknown) (unknown) (no date) (unknown) (unknown) Lungs and pleura:? Bilateral npvo-[id number]-arqizbfd pleural effusions, slightly (units unknown) (unknown) (unknown) (no date) (unknown) (unknown) Lungs and pleura:? Low lung volumes.? Possible mild right and retrocardiac basal (units unknown) (unknown) (unknown) (no date) (unknown) (unknown) Lymph # (Auto) (0764-3077) /uL (units unknown) (unknown) (unknown) (no date) (unknown) (unknown) Lymph # (Auto) 400 L (0702-2044) /uL (units unknown) (unknown) (unknown) (no date) (unknown) (unknown) Lymph % (Auto) (25-40) % (units unknown) (unknown) (unknown) (no date) (unknown) (unknown) Lymph % (Auto) 4.6 L (25-40) % (units unknown) (unknown) (unknown) (no date) (unknown) (unknown) MCH (26-34) PG (units unknown) (unknown) (unknown) (no date) (unknown) (unknown) MCH 30.4 (26-34) PG (units unknown) (unknown) (unknown) (no date) (unknown) (unknown) MCHC (30-36) % (units unknown) (unknown) (unknown) (no date) (unknown) (unknown) MCHC 33.0 (30-36) % (units unknown) (unknown) (unknown) (no date) (unknown) (unknown) MCV (80-100) fL (units unknown) (unknown) (unknown) (no date) (unknown) (unknown) MCV 92.4 (80-100) fL (units unknown) (unknown) (unknown) (no date) (unknown) (unknown) MDM - Weakness (units unknown) (unknown) (unknown) (no date) (unknown) (unknown) MDM Narrative (units unknown) (unknown) (unknown) (no date) (unknown) (unknown) MDM (units unknown) (unknown) (unknown) (no date) (unknown) (unknown) MR#: [id number] (units unknown) (unknown) (unknown) (no date) (unknown) (unknown) MUSCULOSKELETAL: negative muscle or bony pain (units unknown) (unknown) (unknown) (no date) (unknown) (unknown) Mediastinum, heart, and esophagus:? No hiatal hernia.? Left chest wall pulse (units unknown) (unknown) (unknown) (no date) (unknown) (unknown) Mediastinum:? Mediastinal contours appear normal.? Heart size is normal.? (units unknown) (unknown) (unknown) (no date) (unknown) (unknown) Medical decision making narrative: (units unknown) (unknown) (unknown) (no date) (unknown) (unknown) Medical records reviewed: ER visits from a few days ago (units unknown) (unknown) (unknown) (no date) (unknown) (unknown) Medication Instructions Recorded Confirmed (units unknown) (unknown) (unknown) (no date) (unknown) (unknown) [id number]-bcrcqymv, (units unknown) (unknown) (unknown) (no date) (unknown) (unknown) Mode of arrival: Wheelchair (units unknown) (unknown) (unknown) (no date) (unknown) (unknown) [place] # (Auto) (0-900) /uL (units unknown) (unknown) (unknown) (no date) (unknown) (unknown) [place] # (Auto) 900 (0-900) /uL (units unknown) (unknown) (unknown) (no date) (unknown) (unknown) [place] % (Auto) (3-14) % (units unknown) (unknown) (unknown) (no date) (unknown) (unknown) [place] % (Auto) 9.4 (3-14) % (units unknown) (unknown) (unknown) (no date) (unknown) (unknown) NECK: Trachea midline. (units unknown) (unknown) (unknown) (no date) (unknown) (unknown) NEURO: AOx4. Clear speech no facial droop light touch intact to bilateral face (units unknown) (unknown) (unknown) (no date) (unknown) (unknown) NEUROLOGIC: negative weakness, numbness (units unknown) (unknown) (unknown) (no date) (unknown) (unknown) NT-Pro-B Natriuret Pep (<450) pg/mL (units unknown) (unknown) (unknown) (no date) (unknown) (unknown) NT-Pro-B Natriuret Pep 1430 H (<450) pg/mL (units unknown) (unknown) (unknown) (no date) (unknown) (unknown) Narrative (units unknown) (unknown) (unknown) (no date) (unknown) (unknown) Narrative: (units unknown) (unknown) (unknown) (no date) (unknown) (unknown) Neut # (Auto) (6384-5245) /uL (units unknown) (unknown) (unknown) (no date) (unknown) (unknown) Neut # (Auto) 8200 H (3755-2630) /uL (units unknown) (unknown) (unknown) (no date) (unknown) (unknown) Neut % (Auto) (50-75) % (units unknown) (unknown) (unknown) (no date) (unknown) (unknown) Neut % (Auto) 85.1 H (50-75) % (units unknown) (unknown) (unknown) (no date) (unknown) (unknown) No Action (units unknown) (unknown) (unknown) (no date) (unknown) (unknown) No Known Home Medications 12/20/20 12/20/20 (units unknown) (unknown) (unknown) (no date) (unknown) (unknown) No Known Home Medications (units unknown) (unknown) (unknown) (no date) (unknown) (unknown) Noncontrast 4.5 mm thick angled axial sections acquired from the foramen magnum (units unknown) (unknown) (unknown) (no date) (unknown) (unknown) Ondansetron HCl (Ondansetron 4 Mg/2 Ml Inj) 4 mg IV NOW PRN (units unknown) (unknown) (unknown) (no date) (unknown) (unknown) Ordered: (units unknown) (unknown) (unknown) (no date) (unknown) (unknown) Ordering Provider: Matt Swartz MD (units unknown) (unknown) (unknown) (no date) (unknown) (unknown) Orders (units unknown) (unknown) (unknown) (no date) (unknown) (unknown) Other findings as above.? Of note, the liver and spleen are significantly (units unknown) (unknown) (unknown) (no date) (unknown) (unknown) Oxygen Delivery Method 06/16/22 12:21 (units unknown) (unknown) (unknown) (no date) (unknown) (unknown) Oxygen Delivery Method Room Air (units unknown) (unknown) (unknown) (no date) (unknown) (unknown) Oxygen Delivery Method (units unknown) (unknown) (unknown) (no date) (unknown) (unknown) PRN Reason: Nausea And Vomiting (units unknown) (unknown) (unknown) (no date) (unknown) (unknown) PROCEDURE:? CT CHEST W CON (units unknown) (unknown) (unknown) (no date) (unknown) (unknown) PROCEDURE:? CT HEAD/BRAIN WO CON (units unknown) (unknown) (unknown) (no date) (unknown) (unknown) PROCEDURE:? XR CHEST 1V (units unknown) (unknown) (unknown) (no date) (unknown) (unknown) PSYCH: Not anxious, is cooperative (units unknown) (unknown) (unknown) (no date) (unknown) (unknown) PT (10.1-12.7) SECONDS (units unknown) (unknown) (unknown) (no date) (unknown) (unknown) PT 17.6 H (10.1-12.7) SECONDS (units unknown) (unknown) (unknown) (no date) (unknown) (unknown) Partial Thromboplastin Time Stat (units unknown) (unknown) (unknown) (no date) (unknown) (unknown) Patient Disposition: Admitted as Observation (units unknown) (unknown) (unknown) (no date) (unknown) (unknown) Patient History (units unknown) (unknown) (unknown) (no date) (unknown) (unknown) Patient brought in by from Cardiology office for routine office visit. I (units unknown) (unknown) (unknown) (no date) (unknown) (unknown) Patient: Yoseph Cardoso MR#: [id number] (units unknown) (unknown) (unknown) (no date) (unknown) (unknown) Patient: Yoseph Cardoso (units unknown) (unknown) (unknown) (no date) (unknown) (unknown) Plt Count (150-400) X103/uL (units unknown) (unknown) (unknown) (no date) (unknown) (unknown) Plt Count 222 (150-400) X103/uL (units unknown) (unknown) (unknown) (no date) (unknown) (unknown) Potassium (3.4-5.1) mmol/L (units unknown) (unknown) (unknown) (no date) (unknown) (unknown) Potassium 4.8 (3.4-5.1) mmol/L (units unknown) (unknown) (unknown) (no date) (unknown) (unknown) Prescriptions: (units unknown) (unknown) (unknown) (no date) (unknown) (unknown) Procalcitonin (<0.5) ng/mL (units unknown) (unknown) (unknown) (no date) (unknown) (unknown) Procalcitonin 3.27 H (<0.5) ng/mL (units unknown) (unknown) (unknown) (no date) (unknown) (unknown) Procalcitonin Stat (units unknown) (unknown) (unknown) (no date) (unknown) (unknown) Procedure: CT chest w con (units unknown) (unknown) (unknown) (no date) (unknown) (unknown) Procedure: CT head/brain wo con (units unknown) (unknown) (unknown) (no date) (unknown) (unknown) Procedure: XR chest 1V (units unknown) (unknown) (unknown) (no date) (unknown) (unknown) Prothrombin Time INR Stat (units unknown) (unknown) (unknown) (no date) (unknown) (unknown) Pulse Oximetry 100 96 (units unknown) (unknown) (unknown) (no date) (unknown) (unknown) Pulse Oximetry 91 93 (units unknown) (unknown) (unknown) (no date) (unknown) (unknown) Pulse Oximetry 96 96 (units unknown) (unknown) (unknown) (no date) (unknown) (unknown) Pulse Oximetry 98 06/16/22 12:21 (units unknown) (unknown) (unknown) (no date) (unknown) (unknown) Pulse Oximetry 98 93 (units unknown) (unknown) (unknown) (no date) (unknown) (unknown) Pulse Oximetry 98 (units unknown) (unknown) (unknown) (no date) (unknown) (unknown) Pulse Rate 70 72 (units unknown) (unknown) (unknown) (no date) (unknown) (unknown) Pulse Rate 71 73 (units unknown) (unknown) (unknown) (no date) (unknown) (unknown) Pulse Rate 73 75 (units unknown) (unknown) (unknown) (no date) (unknown) (unknown) Pulse Rate 76 (units unknown) (unknown) (unknown) (no date) (unknown) (unknown) Pulse Rate 78 06/16/22 12:21 (units unknown) (unknown) (unknown) (no date) (unknown) (unknown) Pulse Rate 78 79 (units unknown) (unknown) (unknown) (no date) (unknown) (unknown) RBC (4.5-5.9) X106/uL (units unknown) (unknown) (unknown) (no date) (unknown) (unknown) RBC 5.05 (4.5-5.9) X106/uL (units unknown) (unknown) (unknown) (no date) (unknown) (unknown) RDW (11.6-14.8) % (units unknown) (unknown) (unknown) (no date) (unknown) (unknown) RDW 14.4 (11.6-14.8) % (units unknown) (unknown) (unknown) (no date) (unknown) (unknown) RESPIRATORY: Clear to auscultation. Breath sounds equal bilaterally. No wheezes, (units unknown) (unknown) (unknown) (no date) (unknown) (unknown) RESPIRATORY: negative dyspnea, cough (units unknown) (unknown) (unknown) (no date) (unknown) (unknown) ROS Unobtainable: All systems reviewed + are unremarkable except as noted in HPI (units unknown) (unknown) (unknown) (no date) (unknown) (unknown) RSV (PCR) (Negative) (units unknown) (unknown) (unknown) (no date) (unknown) (unknown) RSV (PCR) Negative (Negative) (units unknown) (unknown) (unknown) (no date) (unknown) (unknown) RT Consult Eval and Treat NOW (units unknown) (unknown) (unknown) (no date) (unknown) (unknown) Radiologist Impression: (units unknown) (unknown) (unknown) (no date) (unknown) (unknown) Re-evaluations: Reviewed with patient and . They do agree for admission. (units unknown) (unknown) (unknown) (no date) (unknown) (unknown) Referrals: (units unknown) (unknown) (unknown) (no date) (unknown) (unknown) Related Data (units unknown) (unknown) (unknown) (no date) (unknown) (unknown) Respiratory Rate 17 16 (units unknown) (unknown) (unknown) (no date) (unknown) (unknown) Respiratory Rate 20 13 (units unknown) (unknown) (unknown) (no date) (unknown) (unknown) Respiratory Rate 22 06/16/22 12:21 (units unknown) (unknown) (unknown) (no date) (unknown) (unknown) Respiratory Rate 22 14 (units unknown) (unknown) (unknown) (no date) (unknown) (unknown) Respiratory Rate 22 (units unknown) (unknown) (unknown) (no date) (unknown) (unknown) Review of Systems (units unknown) (unknown) (unknown) (no date) (unknown) (unknown) SARS-CoV-2 (PCR) (Negative) (units unknown) (unknown) (unknown) (no date) (unknown) (unknown) SARS-CoV-2 (PCR) Negative (Negative) (units unknown) (unknown) (unknown) (no date) (unknown) (unknown) SKIN: Warm and dry (units unknown) (unknown) (unknown) (no date) (unknown) (unknown) SKIN: negative rash, skin lesions (units unknown) (unknown) (unknown) (no date) (unknown) (unknown) Signed By: (units unknown) (unknown) (unknown) (no date) (unknown) (unknown) Signed (units unknown) (unknown) (unknown) (no date) (unknown) (unknown) Smoking Status: Smoker, status unknown (units unknown) (unknown) (unknown) (no date) (unknown) (unknown) Social History (units unknown) (unknown) (unknown) (no date) (unknown) (unknown) Sodium (137-145) mmol/L (units unknown) (unknown) (unknown) (no date) (unknown) (unknown) Sodium 135 L (137-145) mmol/L (units unknown) (unknown) (unknown) (no date) (unknown) (unknown) Sodium Chloride (Normal Saline 0.9%) 1,000 mls @ 1,000 mls/hr IV BOLUS ONE (units unknown) (unknown) (unknown) (no date) (unknown) (unknown) Source: patient and family (units unknown) (unknown) (unknown) (no date) (unknown) (unknown) Stated complaint: Pain near pacemaker (units unknown) (unknown) (unknown) (no date) (unknown) (unknown) Stop: 06/16/22 13:43 (units unknown) (unknown) (unknown) (no date) (unknown) (unknown) Substance Use Type: does not use (units unknown) (unknown) (unknown) (no date) (unknown) (unknown) Surgical changes and devices:? Left chest wall pulse generator with dual-chamber (units unknown) (unknown) (unknown) (no date) (unknown) (unknown) TECHNIQUE:? One view of the chest was acquired.? (units unknown) (unknown) (unknown) (no date) (unknown) (unknown) TECHNIQUE:? (units unknown) (unknown) (unknown) (no date) (unknown) (unknown) There is also heterogeneous appearance of the spleen. (units unknown) (unknown) (unknown) (no date) (unknown) (unknown) Time Seen by Provider: 06/16/22 12:46 (units unknown) (unknown) (unknown) (no date) (unknown) (unknown) Total Bilirubin (0.2-1.3) mg/dL (units unknown) (unknown) (unknown) (no date) (unknown) (unknown) Total Bilirubin 2.1 H (0.2-1.3) mg/dL (units unknown) (unknown) (unknown) (no date) (unknown) (unknown) Total Creatine Kinase (55-170) U/L (units unknown) (unknown) (unknown) (no date) (unknown) (unknown) Total Creatine Kinase 53 L (55-170) U/L (units unknown) (unknown) (unknown) (no date) (unknown) (unknown) Total Protein (6.3-8.2) g/dL (units unknown) (unknown) (unknown) (no date) (unknown) (unknown) Total Protein 5.8 L (6.3-8.2) g/dL (units unknown) (unknown) (unknown) (no date) (unknown) (unknown) Treatments: IV fluid (units unknown) (unknown) (unknown) (no date) (unknown) (unknown) Troponin + CK Cardiac Panel Stat (units unknown) (unknown) (unknown) (no date) (unknown) (unknown) Troponin I < 0.012 (0.01-0.034) ng/mL (units unknown) (unknown) (unknown) (no date) (unknown) (unknown) Troponin I (0.01-0.034) ng/mL (units unknown) (unknown) (unknown) (no date) (unknown) (unknown) Upper abdomen:? Heterogeneous appearance of the liver, not well evaluated on (units unknown) (unknown) (unknown) (no date) (unknown) (unknown) Vital Signs - 8 hr (units unknown) (unknown) (unknown) (no date) (unknown) (unknown) Vital Signs (units unknown) (unknown) (unknown) (no date) (unknown) (unknown) Vital signs: (units unknown) (unknown) (unknown) (no date) (unknown) (unknown) Volume:? Vascular calcifications. Periventricular white matter disease is (units unknown) (unknown) (unknown) (no date) (unknown) (unknown) WBC (4.5-11.0) X103/uL (units unknown) (unknown) (unknown) (no date) (unknown) (unknown) WBC 9.6 (4.5-11.0) X103/uL (units unknown) (unknown) (unknown) (no date) (unknown) (unknown) [facility] ER for evaluation of dark urine. CT abdomen pelvis were done, (units unknown) (unknown) (unknown) (no date) (unknown) (unknown) XR chest 1V Stat (units unknown) (unknown) (unknown) (no date) (unknown) (unknown) XRay Report (units unknown) (unknown) (unknown) (no date) (unknown) (unknown) [Embedded Image Not Available] (units unknown) (unknown) (unknown) (no date) (unknown) (unknown) [From Prevnar] and feet x (units unknown) (unknown) (unknown) (no date) (unknown) (unknown) after. (units unknown) (unknown) (unknown) (no date) (unknown) (unknown) agrees for admission. (units unknown) (unknown) (unknown) (no date) (unknown) (unknown) alcohol intake frequency: a few times a month (units unknown) (unknown) (unknown) (no date) (unknown) (unknown) and below (units unknown) (unknown) (unknown) (no date) (unknown) (unknown) and/or (units unknown) (unknown) (unknown) (no date) (unknown) (unknown) appear (units unknown) (unknown) (unknown) (no date) (unknown) (unknown) appearing (units unknown) (unknown) (unknown) (no date) (unknown) (unknown) assess for resolution. (units unknown) (unknown) (unknown) (no date) (unknown) (unknown) atelectasis (units unknown) (unknown) (unknown) (no date) (unknown) (unknown) commonly seen (units unknown) (unknown) (unknown) (no date) (unknown) (unknown) conjugate to of hands (units unknown) (unknown) (unknown) (no date) (unknown) (unknown) consider nonemergent MRI if necessary.? (units unknown) (unknown) (unknown) (no date) (unknown) (unknown) coronal and sagittal reformats and 7 mm axial MIP were acquired.? For radiation (units unknown) (unknown) (unknown) (no date) (unknown) (unknown) criteria. (units unknown) (unknown) (unknown) (no date) (unknown) (unknown) denies any chest pain back pain abdominal pain or headache. (units unknown) (unknown) (unknown) (no date) (unknown) (unknown) dose (units unknown) (unknown) (unknown) (no date) (unknown) (unknown) electrode leads in place. (units unknown) (unknown) (unknown) (no date) (unknown) (unknown) facial droop. Fast exam is negative. Cardiology does not feel this is cardiac (units unknown) (unknown) (unknown) (no date) (unknown) (unknown) facial droop. Fast exam is negative. Patient denies any chest pain abdominal (units unknown) (unknown) (unknown) (no date) (unknown) (unknown) failure thrive/dementia/Par kinson's (units unknown) (unknown) (unknown) (no date) (unknown) (unknown) following (units unknown) (unknown) (unknown) (no date) (unknown) (unknown) from the (units unknown) (unknown) (unknown) (no date) (unknown) (unknown) further evaluation for abnormal laboratory studies. Patient could be early (units unknown) (unknown) (unknown) (no date) (unknown) (unknown) generator (units unknown) (unknown) (unknown) (no date) (unknown) (unknown) greater on the (units unknown) (unknown) (unknown) (no date) (unknown) (unknown) hands with strong equal home care nurse 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 (units unknown) (unknown) (unknown) (no date) (unknown) (unknown) health/weight loss cachexia and balance issues. He had concern for neoplastic (units unknown) (unknown) (unknown) (no date) (unknown) (unknown) hemoglobin 15.4 hematocrit 46.6 platelets 222 PT 17.6 INR 1.5 PTT 38 sodium 135 (units unknown) (unknown) (unknown) (no date) (unknown) (unknown) heterogeneous (units unknown) (unknown) (unknown) (no date) (unknown) (unknown) history, and (units unknown) (unknown) (unknown) (no date) (unknown) (unknown) intact. (units unknown) (unknown) (unknown) (no date) (unknown) (unknown) kV according to patient size.? (units unknown) (unknown) (unknown) (no date) (unknown) (unknown) lactic acid have been ordered (units unknown) (unknown) (unknown) (no date) (unknown) (unknown) maintained. (units unknown) (unknown) (unknown) (no date) (unknown) (unknown) moderate (units unknown) (unknown) (unknown) (no date) (unknown) (unknown) no acute process other than diverticulosis without diverticulitis. states (units unknown) (unknown) (unknown) (no date) (unknown) (unknown) no acute process. CT chest nonspecific opacities (units unknown) (unknown) (unknown) (no date) (unknown) (unknown) opacities.? No pleural effusions.? (units unknown) (unknown) (unknown) (no date) (unknown) (unknown) or early airspace disease.? Consider future imaging surveillance to assess for (units unknown) (unknown) (unknown) (no date) (unknown) (unknown) pain back pain headache (units unknown) (unknown) (unknown) (no date) (unknown) (unknown) parenchymal (units unknown) (unknown) (unknown) (no date) (unknown) (unknown) pathology, consider MRI. (units unknown) (unknown) (unknown) (no date) (unknown) (unknown) patient has had 30 lb weight loss in the past few months with night sweats it in (units unknown) (unknown) (unknown) (no date) (unknown) (unknown) patient (units unknown) (unknown) (unknown) (no date) (unknown) (unknown) pneumococcal 7-valent AdvReac Intermediate swelling Verified 06/16/22 12:46 (units unknown) (unknown) (unknown) (no date) (unknown) (unknown) positive night sweats. Positive weight loss (units unknown) (unknown) (unknown) (no date) (unknown) (unknown) potassium 4.8 BUN 34 creatinine 0.99 glucose 146 lactic acid 4.3. BNP 1430 (units unknown) (unknown) (unknown) (no date) (unknown) (unknown) process. I spoke with dr gillette. However, patient was recently seen at (units unknown) (unknown) (unknown) (no date) (unknown) (unknown) pulmonary apices to the posterior costophrenic angles.? 1 mm axial lung, 5 mm (units unknown) (unknown) (unknown) (no date) (unknown) (unknown) rales, or rhonchi. (units unknown) (unknown) (unknown) (no date) (unknown) (unknown) reduction, the following was used:? automated exposure control, adjustment of mA (units unknown) (unknown) (unknown) (no date) (unknown) (unknown) related. Patient here for routine annual cardiac workup/checkup. Patient (units unknown) (unknown) (unknown) (no date) (unknown) (unknown) resolution. (units unknown) (unknown) (unknown) (no date) (unknown) (unknown) right greater than left pleural effusions.? Consider future imaging surveillance (units unknown) (unknown) (unknown) (no date) (unknown) (unknown) right.? Bibasilar opacities and nodularity also present. (units unknown) (unknown) (unknown) (no date) (unknown) (unknown) sepsis. Patient and family agree for admit. I did speak with hospitalist (units unknown) (unknown) (unknown) (no date) (unknown) (unknown) should be admitted for observation. Do not start any antibiotics at this time. (units unknown) (unknown) (unknown) (no date) (unknown) (unknown) shuffled gait. Generalized weakness and malaise. However no slurred speech or (units unknown) (unknown) (unknown) (no date) (unknown) (unknown) size (units unknown) (unknown) (unknown) (no date) (unknown) (unknown) size.? 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 Patient has history of melanoma. Patient has had recently (units unknown) (unknown) (unknown) (no date) (unknown) (unknown) thick (units unknown) (unknown) (unknown) (no date) (unknown) (unknown) this study.? (units unknown) (unknown) (unknown) (no date) (unknown) (unknown) to the (units unknown) (unknown) (unknown) (no date) (unknown) (unknown) to (units unknown) (unknown) (unknown) (no date) (unknown) (unknown) toxic at this time. (units unknown) (unknown) (unknown) (no date) (unknown) (unknown) troponin less than 0.012, procalcitonin 3.27 (units unknown) (unknown) (unknown) (no date) (unknown) (unknown) unremarkable.? (units unknown) (unknown) (unknown) (no date) (unknown) (unknown) vertex, with coronal and sagittal reformats.? For radiation dose reduction, the (units unknown) (unknown) (unknown) (no date) (unknown) (unknown) visit from a few days ago (units unknown) (unknown) (unknown) (no date) (unknown) (unknown) was used:? automated exposure control, adjustment of mA and/or kV according to (units unknown) (unknown) (unknown) (no date) (unknown) (unknown) which may be related to liver disease.? Please correlate with LFTs, clinical (units unknown) (unknown) (unknown) (no date) (unknown) (unknown) with chronic microangiopathy. Volume loss is present. These findings are (units unknown) (unknown) (unknown) (no date) (unknown) (unknown) with electrode leads.? Coronary calcifications.? No pathologic adenopathy by (units unknown) (unknown) Result panel 202 (unknown) (no date) (unknown) (unknown) 2.6 mg/dl (unknown) (unknown) (no date) (unknown) (unknown) 2.7 mmol/l (unknown) (unknown) (no date) (unknown) (unknown) 4.1 mg/dl (unknown) Result panel 203 (unknown) (no date) (unknown) (unknown) 1 (units unknown) (unknown) (unknown) (no date) (unknown) (unknown) 1.0 e.u./dl (unknown) (unknown) (no date) (unknown) (unknown) 1.020 (units unknown) (unknown) (unknown) (no date) (unknown) (unknown) 3 (units unknown) (unknown) (unknown) (no date) (unknown) (unknown) 6.5 (units unknown) (unknown) (unknown) (no date) (unknown) (unknown) BROWN (units unknown) (unknown) (unknown) (no date) (unknown) (unknown) BROWN (units unknown) (unknown) (unknown) (no date) (unknown) (unknown) CLOUDY (units unknown) (unknown) (unknown) (no date) (unknown) (unknown) NEGATIVE g/dl (unknown) (unknown) (no date) (unknown) (unknown) POSITIVE (units unknown) (unknown) (unknown) (no date) (unknown) (unknown) TRACE (units unknown) (unknown) (unknown) (no date) (unknown) (unknown) TRACE-INTACT (units unknown) (unknown) Result panel 204 (unknown) (no date) (unknown) (unknown) 1 (units unknown) (unknown) (unknown) (no date) (unknown) (unknown) 1-5 /HPF (units unknown) (unknown) (unknown) (no date) (unknown) (unknown) 1-5/HPF (units unknown) (unknown) (unknown) (no date) (unknown) (unknown) 1.0 e.u./dl (unknown) (unknown) (no date) (unknown) (unknown) 1.020 (units unknown) (unknown) (unknown) (no date) (unknown) (unknown) 10-30/HPF (units unknown) (unknown) (unknown) (no date) (unknown) (unknown) 3 (units unknown) (unknown) (unknown) (no date) (unknown) (unknown) 6.5 (units unknown) (unknown) (unknown) (no date) (unknown) (unknown) BROWN (units unknown) (unknown) (unknown) (no date) (unknown) (unknown) BROWN (units unknown) (unknown) (unknown) (no date) (unknown) (unknown) CLOUDY (units unknown) (unknown) (unknown) (no date) (unknown) (unknown) NEGATIVE g/dl (unknown) (unknown) (no date) (unknown) (unknown) None Seen (units unknown) (unknown) (unknown) (no date) (unknown) (unknown) POSITIVE (units unknown) (unknown) (unknown) (no date) (unknown) (unknown) Positive (units unknown) (unknown) (unknown) (no date) (unknown) (unknown) Specimen Cultured (units unknown) (unknown) (unknown) (no date) (unknown) (unknown) TRACE (units unknown) (unknown) (unknown) (no date) (unknown) (unknown) TRACE-INTACT (units unknown) (unknown) Result panel 205 (unknown) (no date) (unknown) (unknown) (no value) (units unknown) (unknown) (unknown) (no date) (unknown) (unknown) (past 8 hours): (units unknown) (unknown) (unknown) (no date) (unknown) (unknown) [id number] (units unknown) (unknown) (unknown) (no date) (unknown) (unknown) 06/16/22 06/16/22 06/16/22 (units unknown) (unknown) (unknown) (no date) (unknown) (unknown) 06/16/22 06/16/22 (units unknown) (unknown) (unknown) (no date) (unknown) (unknown) 06/16/22 12:35 (units unknown) (unknown) (unknown) (no date) (unknown) (unknown) 06/16/22 (units unknown) (unknown) (unknown) (no date) (unknown) (unknown) 12:35 12:35 12:35 (units unknown) (unknown) (unknown) (no date) (unknown) (unknown) 13:15 06/16/22 (units unknown) (unknown) (unknown) (no date) (unknown) (unknown) 13:30 (units unknown) (unknown) (unknown) (no date) (unknown) (unknown) 13:45 06/16/22 (units unknown) (unknown) (unknown) (no date) (unknown) (unknown) 13:46 06/16/22 (units unknown) (unknown) (unknown) (no date) (unknown) (unknown) 13:46 (units unknown) (unknown) (unknown) (no date) (unknown) (unknown) 14:00 06/16/22 (units unknown) (unknown) (unknown) (no date) (unknown) (unknown) 14:24 (units unknown) (unknown) (unknown) (no date) (unknown) (unknown) 14:30 06/16/22 (units unknown) (unknown) (unknown) (no date) (unknown) (unknown) 14:45 06/16/22 (units unknown) (unknown) (unknown) (no date) (unknown) (unknown) 15:00 (units unknown) (unknown) (unknown) (no date) (unknown) (unknown) 15:15 06/16/22 (units unknown) (unknown) (unknown) (no date) (unknown) (unknown) 15:30 06/16/22 (units unknown) (unknown) (unknown) (no date) (unknown) (unknown) 15:30 17:55 (units unknown) (unknown) (unknown) (no date) (unknown) (unknown) 15:34 06/16/22 (units unknown) (unknown) (unknown) (no date) (unknown) (unknown) 15:34 (units unknown) (unknown) (unknown) (no date) (unknown) (unknown) 15:45 06/16/22 (units unknown) (unknown) (unknown) (no date) (unknown) (unknown) 15:45 (units unknown) (unknown) (unknown) (no date) (unknown) (unknown) 16:00 06/16/22 (units unknown) (unknown) (unknown) (no date) (unknown) (unknown) 16:15 06/16/22 (units unknown) (unknown) (unknown) (no date) (unknown) (unknown) 16:15 (units unknown) (unknown) (unknown) (no date) (unknown) (unknown) 16:30 02/24/23 (units unknown) (unknown) (unknown) (no date) (unknown) (unknown) 16:31 06/16/22 (units unknown) (unknown) (unknown) (no date) (unknown) (unknown) 16:31 (units unknown) (unknown) (unknown) (no date) (unknown) (unknown) 16:45 06/16/22 (units unknown) (unknown) (unknown) (no date) (unknown) (unknown) 17:00 06/16/22 (units unknown) (unknown) (unknown) (no date) (unknown) (unknown) 17:00 (units unknown) (unknown) (unknown) (no date) (unknown) (unknown) 17:15 06/16/22 (units unknown) (unknown) (unknown) (no date) (unknown) (unknown) 17:15 (units unknown) (unknown) (unknown) (no date) (unknown) (unknown) 17:30 06/16/22 (units unknown) (unknown) (unknown) (no date) (unknown) (unknown) 17:45 (units unknown) (unknown) (unknown) (no date) (unknown) (unknown) 17:46 06/16/22 (units unknown) (unknown) (unknown) (no date) (unknown) (unknown) 17:59 (units unknown) (unknown) (unknown) (no date) (unknown) (unknown) 18:00 06/16/22 (units unknown) (unknown) (unknown) (no date) (unknown) (unknown) 18:01 06/16/22 (units unknown) (unknown) (unknown) (no date) (unknown) (unknown) 18:15 06/16/22 (units unknown) (unknown) (unknown) (no date) (unknown) (unknown) 18:15 (units unknown) (unknown) (unknown) (no date) (unknown) (unknown) 18:30 06/16/22 (units unknown) (unknown) (unknown) (no date) (unknown) (unknown) 18:30 (units unknown) (unknown) (unknown) (no date) (unknown) (unknown) 18:45 06/16/22 (units unknown) (unknown) (unknown) (no date) (unknown) (unknown) 19:00 06/16/22 (units unknown) (unknown) (unknown) (no date) (unknown) (unknown) 19:00 (units unknown) (unknown) (unknown) (no date) (unknown) (unknown) 19:15 06/16/22 (units unknown) (unknown) (unknown) (no date) (unknown) (unknown) 19:15 (units unknown) (unknown) (unknown) (no date) (unknown) (unknown) 19:30 06/16/22 (units unknown) (unknown) (unknown) (no date) (unknown) (unknown) 19:45 06/16/22 (units unknown) (unknown) (unknown) (no date) (unknown) (unknown) 19:45 (units unknown) (unknown) (unknown) (no date) (unknown) (unknown) 20:00 06/16/22 (units unknown) (unknown) (unknown) (no date) (unknown) (unknown) 20:00 (units unknown) (unknown) (unknown) (no date) (unknown) (unknown) 20:15 06/16/22 (units unknown) (unknown) (unknown) (no date) (unknown) (unknown) 20:30 06/16/22 (units unknown) (unknown) (unknown) (no date) (unknown) (unknown) 20:30 (units unknown) (unknown) (unknown) (no date) (unknown) (unknown) 20:45 06/16/22 (units unknown) (unknown) (unknown) (no date) (unknown) (unknown) 20:46 06/16/22 (units unknown) (unknown) (unknown) (no date) (unknown) (unknown) 20:46 (units unknown) (unknown) (unknown) (no date) (unknown) (unknown) 20:55 (units unknown) (unknown) (unknown) (no date) (unknown) (unknown) 34, glucose 146, calcium 8.1, magnesium 2.6, phosphorus 4.1, bili 2.1, AST 61, (units unknown) (unknown) (unknown) (no date) (unknown) (unknown) 4 mos (units unknown) (unknown) (unknown) (no date) (unknown) (unknown) 4.3, repeat 2.7, procalcitonin 3.27, PT 17.6, INR 1.5, PTT 38. Sodium 135, BUN (units unknown) (unknown) (unknown) (no date) (unknown) (unknown) 98% on room air. Patient has no WBC, but left shiftneut 8200, initial lactate (units unknown) (unknown) (unknown) (no date) (unknown) (unknown) ALT 63 H (units unknown) (unknown) (unknown) (no date) (unknown) (unknown) ALT 63, alk-phos 428, total protein 5.8, albumin 3.1, CK 53, initial troponin (units unknown) (unknown) (unknown) (no date) (unknown) (unknown) ALT (units unknown) (unknown) (unknown) (no date) (unknown) (unknown) APTT 38 H (units unknown) (unknown) (unknown) (no date) (unknown) (unknown) APTT (units unknown) (unknown) (unknown) (no date) (unknown) (unknown) AST 61 H (units unknown) (unknown) (unknown) (no date) (unknown) (unknown) AST (units unknown) (unknown) (unknown) (no date) (unknown) (unknown) Age/Sex: 86 / M (units unknown) (unknown) (unknown) (no date) (unknown) (unknown) Albumin 3.1 L (units unknown) (unknown) (unknown) (no date) (unknown) (unknown) Albumin (units unknown) (unknown) (unknown) (no date) (unknown) (unknown) Albumin/Globulin Ratio 1.1 (units unknown) (unknown) (unknown) (no date) (unknown) (unknown) Albumin/Globulin Ratio (units unknown) (unknown) (unknown) (no date) (unknown) (unknown) Alkaline Phosphatase 428 H (units unknown) (unknown) (unknown) (no date) (unknown) (unknown) Alkaline Phosphatase (units unknown) (unknown) (unknown) (no date) (unknown) (unknown) Allergies (units unknown) (unknown) (unknown) (no date) (unknown) (unknown) Allergy/AdvReac Type Severity Reaction Status Date / Time (units unknown) (unknown) (unknown) (no date) (unknown) (unknown) Assessment + Plan (units unknown) (unknown) (unknown) (no date) (unknown) (unknown) BUN 34 H (units unknown) (unknown) (unknown) (no date) (unknown) (unknown) BUN (units unknown) (unknown) (unknown) (no date) (unknown) (unknown) BUN/Creatinine Ratio 34.3 H (units unknown) (unknown) (unknown) (no date) (unknown) (unknown) BUN/Creatinine Ratio (units unknown) (unknown) (unknown) (no date) (unknown) (unknown) Baso # (Auto) 100 (units unknown) (unknown) (unknown) (no date) (unknown) (unknown) Baso # (Auto) (units unknown) (unknown) (unknown) (no date) (unknown) (unknown) Baso % (Auto) 0.8 (units unknown) (unknown) (unknown) (no date) (unknown) (unknown) Baso % (Auto) (units unknown) (unknown) (unknown) (no date) (unknown) (unknown) Blood Pressure 141/57 H (units unknown) (unknown) (unknown) (no date) (unknown) (unknown) Blood Pressure 141/73 H (units unknown) (unknown) (unknown) (no date) (unknown) (unknown) Blood Pressure 142/65 H 156/70 H (units unknown) (unknown) (unknown) (no date) (unknown) (unknown) Blood Pressure 142/67 H (units unknown) (unknown) (unknown) (no date) (unknown) (unknown) Blood Pressure 143/67 H (units unknown) (unknown) (unknown) (no date) (unknown) (unknown) Blood Pressure 145/69 H (units unknown) (unknown) (unknown) (no date) (unknown) (unknown) Blood Pressure 146/69 H (units unknown) (unknown) (unknown) (no date) (unknown) (unknown) Blood Pressure 147/71 H 150/72 H (units unknown) (unknown) (unknown) (no date) (unknown) (unknown) Blood Pressure 149/68 H 130/59 L (units unknown) (unknown) (unknown) (no date) (unknown) (unknown) Blood Pressure 149/78 H 155/70 H (units unknown) (unknown) (unknown) (no date) (unknown) (unknown) Blood Pressure 150/73 H (units unknown) (unknown) (unknown) (no date) (unknown) (unknown) Blood Pressure 151/72 H (units unknown) (unknown) (unknown) (no date) (unknown) (unknown) Blood Pressure 154/73 H (units unknown) (unknown) (unknown) (no date) (unknown) (unknown) Blood Pressure 156/72 H 151/72 H (units unknown) (unknown) (unknown) (no date) (unknown) (unknown) Blood Pressure 162/114 H (units unknown) (unknown) (unknown) (no date) (unknown) (unknown) Blood Pressure 164/94 H 164/96 H (units unknown) (unknown) (unknown) (no date) (unknown) (unknown) Blood Pressure 179/74 H 179/94 H (units unknown) (unknown) (unknown) (no date) (unknown) (unknown) Blood Pressure 186/112 H 169/75 H (units unknown) (unknown) (unknown) (no date) (unknown) (unknown) Blood Pressure (units unknown) (unknown) (unknown) (no date) (unknown) (unknown) CK-MB (CK-2) Rel Index TNP (units unknown) (unknown) (unknown) (no date) (unknown) (unknown) CK-MB (CK-2) Rel Index (units unknown) (unknown) (unknown) (no date) (unknown) (unknown) CK-MB (CK-2) TNP (units unknown) (unknown) (unknown) (no date) (unknown) (unknown) CK-MB (CK-2) (units unknown) (unknown) (unknown) (no date) (unknown) (unknown) Calcium 8.1 L (units unknown) (unknown) (unknown) (no date) (unknown) (unknown) Calcium (units unknown) (unknown) (unknown) (no date) (unknown) (unknown) Carbon Dioxide 28 (units unknown) (unknown) (unknown) (no date) (unknown) (unknown) Carbon Dioxide (units unknown) (unknown) (unknown) (no date) (unknown) (unknown) Chief complaint: Pain near pacemaker (units unknown) (unknown) (unknown) (no date) (unknown) (unknown) Chloride 99 (units unknown) (unknown) (unknown) (no date) (unknown) (unknown) Chloride (units unknown) (unknown) (unknown) (no date) (unknown) (unknown) Creatinine 0.99 (units unknown) (unknown) (unknown) (no date) (unknown) (unknown) Creatinine (units unknown) (unknown) (unknown) (no date) (unknown) (unknown) Critical Care time: (units unknown) (unknown) (unknown) (no date) (unknown) (unknown) : 1935 Acct:[id number] (units unknown) (unknown) (unknown) (no date) (unknown) (unknown) Date Patient Seen: 06/16/22 (units unknown) (unknown) (unknown) (no date) (unknown) (unknown) Date of Service: 06/16/22 (units unknown) (unknown) (unknown) (no date) (unknown) (unknown) Yoseph Cardoso is a 86-year-old male with a history of atrial fibrillation, with (units unknown) (unknown) (unknown) (no date) (unknown) (unknown) Environment (units unknown) (unknown) (unknown) (no date) (unknown) (unknown) Eos # (Auto) 0 (units unknown) (unknown) (unknown) (no date) (unknown) (unknown) Eos # (Auto) (units unknown) (unknown) (unknown) (no date) (unknown) (unknown) Eos % (Auto) 0.1 L (units unknown) (unknown) (unknown) (no date) (unknown) (unknown) Eos % (Auto) (units unknown) (unknown) (unknown) (no date) (unknown) (unknown) Estimated GFR > 60 (units unknown) (unknown) (unknown) (no date) (unknown) (unknown) Estimated GFR (units unknown) (unknown) (unknown) (no date) (unknown) (unknown) Exam (units unknown) (unknown) (unknown) (no date) (unknown) (unknown) Family + Social History (units unknown) (unknown) (unknown) (no date) (unknown) (unknown) Feels Safe in Current Yes (units unknown) (unknown) (unknown) (no date) (unknown) (unknown) Fever, jaundice, right upper quadrant pain? (units unknown) (unknown) (unknown) (no date) (unknown) (unknown) Globulin 2.7 (units unknown) (unknown) (unknown) (no date) (unknown) (unknown) Globulin (units unknown) (unknown) (unknown) (no date) (unknown) (unknown) Glucose 146 H (units unknown) (unknown) (unknown) (no date) (unknown) (unknown) Glucose (units unknown) (unknown) (unknown) (no date) (unknown) (unknown) Hct 46.6 (units unknown) (unknown) (unknown) (no date) (unknown) (unknown) Hct (units unknown) (unknown) (unknown) (no date) (unknown) (unknown) Hgb 15.4 (units unknown) (unknown) (unknown) (no date) (unknown) (unknown) Hgb (units unknown) (unknown) (unknown) (no date) (unknown) (unknown) History + Physical Report (units unknown) (unknown) (unknown) (no date) (unknown) (unknown) History of Present Illness (units unknown) (unknown) (unknown) (no date) (unknown) (unknown) Home Medications and Allergies (units unknown) (unknown) (unknown) (no date) (unknown) (unknown) Home Medications (units unknown) (unknown) (unknown) (no date) (unknown) (unknown) I spent a total of [] minutes of critical care time on this patient's care (units unknown) (unknown) (unknown) (no date) (unknown) (unknown) INR 1.5 H (units unknown) (unknown) (unknown) (no date) (unknown) (unknown) INR (units unknown) (unknown) (unknown) (no date) (unknown) (unknown) Influenza A (RT-PCR) Flu a negative (units unknown) (unknown) (unknown) (no date) (unknown) (unknown) Influenza A (RT-PCR) (units unknown) (unknown) (unknown) (no date) (unknown) (unknown) Influenza B (RT-PCR) Flu b negative (units unknown) (unknown) (unknown) (no date) (unknown) (unknown) Influenza B (RT-PCR) (units unknown) (unknown) (unknown) (no date) (unknown) (unknown) [address] [address] (units unknown) (unknown) (unknown) (no date) (unknown) (unknown) Laboratory Results - last 24 hr (units unknown) (unknown) (unknown) (no date) (unknown) (unknown) Labs (units unknown) (unknown) (unknown) (no date) (unknown) (unknown) Labs: (units unknown) (unknown) (unknown) (no date) (unknown) (unknown) Lactate 2.7 H (units unknown) (unknown) (unknown) (no date) (unknown) (unknown) Lactate 4.3 H* (units unknown) (unknown) (unknown) (no date) (unknown) (unknown) Lactate (units unknown) (unknown) (unknown) (no date) (unknown) (unknown) Lipase 45 (units unknown) (unknown) (unknown) (no date) (unknown) (unknown) Lipase (units unknown) (unknown) (unknown) (no date) (unknown) (unknown) Lymph # (Auto) 400 L (units unknown) (unknown) (unknown) (no date) (unknown) (unknown) Lymph # (Auto) (units unknown) (unknown) (unknown) (no date) (unknown) (unknown) Lymph % (Auto) 4.6 L (units unknown) (unknown) (unknown) (no date) (unknown) (unknown) Lymph % (Auto) (units unknown) (unknown) (unknown) (no date) (unknown) (unknown) MCH 30.4 (units unknown) (unknown) (unknown) (no date) (unknown) (unknown) MCH (units unknown) (unknown) (unknown) (no date) (unknown) (unknown) MCHC 33.0 (units unknown) (unknown) (unknown) (no date) (unknown) (unknown) MCHC (units unknown) (unknown) (unknown) (no date) (unknown) (unknown) MCV 92.4 (units unknown) (unknown) (unknown) (no date) (unknown) (unknown) MCV (units unknown) (unknown) (unknown) (no date) (unknown) (unknown) Magnesium 2.6 H (units unknown) (unknown) (unknown) (no date) (unknown) (unknown) Magnesium (units unknown) (unknown) (unknown) (no date) (unknown) (unknown) Medication Instructions Recorded Confirmed Type (units unknown) (unknown) (unknown) (no date) (unknown) (unknown) Meds (units unknown) (unknown) (unknown) (no date) (unknown) (unknown) [place] # (Auto) 900 (units unknown) (unknown) (unknown) (no date) (unknown) (unknown) [place] # (Auto) (units unknown) (unknown) (unknown) (no date) (unknown) (unknown) [place] % (Auto) 9.4 (units unknown) (unknown) (unknown) (no date) (unknown) (unknown) [place] % (Auto) (units unknown) (unknown) (unknown) (no date) (unknown) (unknown) NT-Pro-B Natriuret Pep 1430 H (units unknown) (unknown) (unknown) (no date) (unknown) (unknown) NT-Pro-B Natriuret Pep (units unknown) (unknown) (unknown) (no date) (unknown) (unknown) Narrative: (units unknown) (unknown) (unknown) (no date) (unknown) (unknown) Neut # (Auto) 8200 H (units unknown) (unknown) (unknown) (no date) (unknown) (unknown) Neut # (Auto) (units unknown) (unknown) (unknown) (no date) (unknown) (unknown) Neut % (Auto) 85.1 H (units unknown) (unknown) (unknown) (no date) (unknown) (unknown) Neut % (Auto) (units unknown) (unknown) (unknown) (no date) (unknown) (unknown) No Known Home Medications 12/20/20 12/20/20 History (units unknown) (unknown) (unknown) (no date) (unknown) (unknown) Objective (units unknown) (unknown) (unknown) (no date) (unknown) (unknown) On admit patient denies chest pain, shortness in breath, headache, changes in (units unknown) (unknown) (unknown) (no date) (unknown) (unknown) Oxygen Delivery Method Room Air (units unknown) (unknown) (unknown) (no date) (unknown) (unknown) Oxygen Delivery Method (units unknown) (unknown) (unknown) (no date) (unknown) (unknown) PT 17.6 H (units unknown) (unknown) (unknown) (no date) (unknown) (unknown) PT (units unknown) (unknown) (unknown) (no date) (unknown) (unknown) Patient History (units unknown) (unknown) (unknown) (no date) (unknown) (unknown) Patient: Yoseph Cardoso MR#: [id number] (units unknown) (unknown) (unknown) (no date) (unknown) (unknown) Phosphorus 4.1 H (units unknown) (unknown) (unknown) (no date) (unknown) (unknown) Phosphorus (units unknown) (unknown) (unknown) (no date) (unknown) (unknown) Plt Count 222 (units unknown) (unknown) (unknown) (no date) (unknown) (unknown) Plt Count (units unknown) (unknown) (unknown) (no date) (unknown) (unknown) Potassium 4.8 (units unknown) (unknown) (unknown) (no date) (unknown) (unknown) Potassium (units unknown) (unknown) (unknown) (no date) (unknown) (unknown) Procalcitonin 3.27 H (units unknown) (unknown) (unknown) (no date) (unknown) (unknown) Procalcitonin (units unknown) (unknown) (unknown) (no date) (unknown) (unknown) 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- (units unknown) (unknown) (unknown) (no date) (unknown) (unknown) Pulse Oximetry 93 100 (units unknown) (unknown) (unknown) (no date) (unknown) (unknown) Pulse Oximetry 94 96 (units unknown) (unknown) (unknown) (no date) (unknown) (unknown) Pulse Oximetry 95 (units unknown) (unknown) (unknown) (no date) (unknown) (unknown) Pulse Oximetry 96 91 (units unknown) (unknown) (unknown) (no date) (unknown) (unknown) Pulse Oximetry 96 99 (units unknown) (unknown) (unknown) (no date) (unknown) (unknown) Pulse Oximetry 96 (units unknown) (unknown) (unknown) (no date) (unknown) (unknown) Pulse Oximetry 97 96 97 (units unknown) (unknown) (unknown) (no date) (unknown) (unknown) Pulse Oximetry 97 97 98 (units unknown) (unknown) (unknown) (no date) (unknown) (unknown) Pulse Oximetry 97 97 (units unknown) (unknown) (unknown) (no date) (unknown) (unknown) Pulse Oximetry 97 (units unknown) (unknown) (unknown) (no date) (unknown) (unknown) Pulse Oximetry 98 97 (units unknown) (unknown) (unknown) (no date) (unknown) (unknown) Pulse Oximetry 98 (units unknown) (unknown) (unknown) (no date) (unknown) (unknown) Pulse Oximetry (units unknown) (unknown) (unknown) (no date) (unknown) (unknown) Pulse Rate 111 H (units unknown) (unknown) (unknown) (no date) (unknown) (unknown) Pulse Rate 114 H 118 H (units unknown) (unknown) (unknown) (no date) (unknown) (unknown) Pulse Rate 154 H (units unknown) (unknown) (unknown) (no date) (unknown) (unknown) Pulse Rate 72 66 (units unknown) (unknown) (unknown) (no date) (unknown) (unknown) Pulse Rate 72 71 (units unknown) (unknown) (unknown) (no date) (unknown) (unknown) Pulse Rate 72 74 (units unknown) (unknown) (unknown) (no date) (unknown) (unknown) Pulse Rate 72 (units unknown) (unknown) (unknown) (no date) (unknown) (unknown) Pulse Rate 73 74 (units unknown) (unknown) (unknown) (no date) (unknown) (unknown) Pulse Rate 73 87 98 H (units unknown) (unknown) (unknown) (no date) (unknown) (unknown) Pulse Rate 73 (units unknown) (unknown) (unknown) (no date) (unknown) (unknown) Pulse Rate 74 104 H 106 H (units unknown) (unknown) (unknown) (no date) (unknown) (unknown) Pulse Rate 75 116 H (units unknown) (unknown) (unknown) (no date) (unknown) (unknown) Pulse Rate 75 70 (units unknown) (unknown) (unknown) (no date) (unknown) (unknown) Pulse Rate 75 74 74 (units unknown) (unknown) (unknown) (no date) (unknown) (unknown) Pulse Rate 75 (units unknown) (unknown) (unknown) (no date) (unknown) (unknown) Pulse Rate 76 (units unknown) (unknown) (unknown) (no date) (unknown) (unknown) Pulse Rate 78 75 (units unknown) (unknown) (unknown) (no date) (unknown) (unknown) Pulse Rate 84 77 (units unknown) (unknown) (unknown) (no date) (unknown) (unknown) Pulse Rate 86 72 (units unknown) (unknown) (unknown) (no date) (unknown) (unknown) Pulse Rate 98 H (units unknown) (unknown) (unknown) (no date) (unknown) (unknown) RBC 5.05 (units unknown) (unknown) (unknown) (no date) (unknown) (unknown) RBC (units unknown) (unknown) (unknown) (no date) (unknown) (unknown) RDW 14.4 (units unknown) (unknown) (unknown) (no date) (unknown) (unknown) RDW (units unknown) (unknown) (unknown) (no date) (unknown) (unknown) RSV (PCR) Negative (units unknown) (unknown) (unknown) (no date) (unknown) (unknown) RSV (PCR) (units unknown) (unknown) (unknown) (no date) (unknown) (unknown) Respiratory Rate 12 25 H (units unknown) (unknown) (unknown) (no date) (unknown) (unknown) Respiratory Rate 13 26 H (units unknown) (unknown) (unknown) (no date) (unknown) (unknown) Respiratory Rate 16 20 (units unknown) (unknown) (unknown) (no date) (unknown) (unknown) Respiratory Rate 17 26 H (units unknown) (unknown) (unknown) (no date) (unknown) (unknown) Respiratory Rate 17 (units unknown) (unknown) (unknown) (no date) (unknown) (unknown) Respiratory Rate 18 32 H (units unknown) (unknown) (unknown) (no date) (unknown) (unknown) Respiratory Rate 18 (units unknown) (unknown) (unknown) (no date) (unknown) (unknown) Respiratory Rate 19 18 (units unknown) (unknown) (unknown) (no date) (unknown) (unknown) Respiratory Rate 19 34 H 39 H (units unknown) (unknown) (unknown) (no date) (unknown) (unknown) Respiratory Rate 19 (units unknown) (unknown) (unknown) (no date) (unknown) (unknown) Respiratory Rate 20 (units unknown) (unknown) (unknown) (no date) (unknown) (unknown) Respiratory Rate 22 20 (units unknown) (unknown) (unknown) (no date) (unknown) (unknown) Respiratory Rate 23 17 16 (units unknown) (unknown) (unknown) (no date) (unknown) (unknown) Respiratory Rate 23 18 (units unknown) (unknown) (unknown) (no date) (unknown) (unknown) Respiratory Rate 24 19 (units unknown) (unknown) (unknown) (no date) (unknown) (unknown) Respiratory Rate 24 23 (units unknown) (unknown) (unknown) (no date) (unknown) (unknown) Respiratory Rate 27 H (units unknown) (unknown) (unknown) (no date) (unknown) (unknown) Respiratory Rate 29 H (units unknown) (unknown) (unknown) (no date) (unknown) (unknown) Respiratory Rate 30 H 24 (units unknown) (unknown) (unknown) (no date) (unknown) (unknown) Respiratory Rate (units unknown) (unknown) (unknown) (no date) (unknown) (unknown) SARS-CoV-2 (PCR) Negative (units unknown) (unknown) (unknown) (no date) (unknown) (unknown) SARS-CoV-2 (PCR) (units unknown) (unknown) (unknown) (no date) (unknown) (unknown) Safety + Behavioral: (units unknown) (unknown) (unknown) (no date) (unknown) (unknown) Signed By: (units unknown) (unknown) (unknown) (no date) (unknown) (unknown) Smoking Status Smoker, status unknown (units unknown) (unknown) (unknown) (no date) (unknown) (unknown) Sodium 135 L (units unknown) (unknown) (unknown) (no date) (unknown) (unknown) Sodium (units unknown) (unknown) (unknown) (no date) (unknown) (unknown) Substance Use Type does not use (units unknown) (unknown) (unknown) (no date) (unknown) (unknown) Temperature 98.1 F (units unknown) (unknown) (unknown) (no date) (unknown) (unknown) Temperature (units unknown) (unknown) (unknown) (no date) (unknown) (unknown) Time Patient Seen: 15:35 (units unknown) (unknown) (unknown) (no date) (unknown) (unknown) Time Spent With Patient (units unknown) (unknown) (unknown) (no date) (unknown) (unknown) Tobacco + Substance use: (units unknown) (unknown) (unknown) (no date) (unknown) (unknown) Total Bilirubin 2.1 H (units unknown) (unknown) (unknown) (no date) (unknown) (unknown) Total Bilirubin (units unknown) (unknown) (unknown) (no date) (unknown) (unknown) Total Creatine Kinase 53 L (units unknown) (unknown) (unknown) (no date) (unknown) (unknown) Total Creatine Kinase (units unknown) (unknown) (unknown) (no date) (unknown) (unknown) Total Protein 5.8 L (units unknown) (unknown) (unknown) (no date) (unknown) (unknown) Total Protein (units unknown) (unknown) (unknown) (no date) (unknown) (unknown) Troponin I < 0.012 (units unknown) (unknown) (unknown) (no date) (unknown) (unknown) Troponin I (units unknown) (unknown) (unknown) (no date) (unknown) (unknown) Upon admit BP 149/78, tachycardic heart rate 154, tachypneic R 29, O2 saturation (units unknown) (unknown) (unknown) (no date) (unknown) (unknown) Ur Bilirubin Confirm Positive H (units unknown) (unknown) (unknown) (no date) (unknown) (unknown) Ur Bilirubin Confirm (units unknown) (unknown) (unknown) (no date) (unknown) (unknown) Ur Culture Indicated? Specimen cultured (units unknown) (unknown) (unknown) (no date) (unknown) (unknown) Ur Culture Indicated? (units unknown) (unknown) (unknown) (no date) (unknown) (unknown) Ur Leukocyte Esterase Trace H (units unknown) (unknown) (unknown) (no date) (unknown) (unknown) Ur Leukocyte Esterase (units unknown) (unknown) (unknown) (no date) (unknown) (unknown) Ur Specific [place] 1.020 (units unknown) (unknown) (unknown) (no date) (unknown) (unknown) Ur Specific [place] (units unknown) (unknown) (unknown) (no date) (unknown) (unknown) Ur Squamous Epith Cells 1-5 /hpf (units unknown) (unknown) (unknown) (no date) (unknown) (unknown) Ur Squamous Epith Cells (units unknown) (unknown) (unknown) (no date) (unknown) (unknown) Urine Appearance Cloudy (units unknown) (unknown) (unknown) (no date) (unknown) (unknown) Urine Appearance (units unknown) (unknown) (unknown) (no date) (unknown) (unknown) Urine Bacteria None seen (units unknown) (unknown) (unknown) (no date) (unknown) (unknown) Urine Bacteria (units unknown) (unknown) (unknown) (no date) (unknown) (unknown) Urine Bilirubin 3+ H (units unknown) (unknown) (unknown) (no date) (unknown) (unknown) Urine Bilirubin (units unknown) (unknown) (unknown) (no date) (unknown) (unknown) Urine Color Brown (units unknown) (unknown) (unknown) (no date) (unknown) (unknown) Urine Color (units unknown) (unknown) (unknown) (no date) (unknown) (unknown) Urine Glucose (UA) Negative (units unknown) (unknown) (unknown) (no date) (unknown) (unknown) Urine Glucose (UA) (units unknown) (unknown) (unknown) (no date) (unknown) (unknown) Urine Ketones 1+ H (units unknown) (unknown) (unknown) (no date) (unknown) (unknown) Urine Ketones (units unknown) (unknown) (unknown) (no date) (unknown) (unknown) Urine Nitrate Positive H (units unknown) (unknown) (unknown) (no date) (unknown) (unknown) Urine Nitrate (units unknown) (unknown) (unknown) (no date) (unknown) (unknown) Urine Occult Blood Trace-intact (units unknown) (unknown) (unknown) (no date) (unknown) (unknown) Urine Occult Blood (units unknown) (unknown) (unknown) (no date) (unknown) (unknown) Urine Protein 1+ H (units unknown) (unknown) (unknown) (no date) (unknown) (unknown) Urine Protein (units unknown) (unknown) (unknown) (no date) (unknown) (unknown) Urine RBC 10-30/hpf H (units unknown) (unknown) (unknown) (no date) (unknown) (unknown) Urine RBC (units unknown) (unknown) (unknown) (no date) (unknown) (unknown) Urine Urobilinogen 1.0 (units unknown) (unknown) (unknown) (no date) (unknown) (unknown) Urine Urobilinogen (units unknown) (unknown) (unknown) (no date) (unknown) (unknown) Urine WBC 1-5/hpf (units unknown) (unknown) (unknown) (no date) (unknown) (unknown) Urine WBC (units unknown) (unknown) (unknown) (no date) (unknown) (unknown) Urine pH 6.5 (units unknown) (unknown) (unknown) (no date) (unknown) (unknown) Urine pH (units unknown) (unknown) (unknown) (no date) (unknown) (unknown) Vital Signs (units unknown) (unknown) (unknown) (no date) (unknown) (unknown) WBC 9.6 (units unknown) (unknown) (unknown) (no date) (unknown) (unknown) WBC (units unknown) (unknown) (unknown) (no date) (unknown) (unknown) [Embedded Image Not Available] (units unknown) (unknown) (unknown) (no date) (unknown) (unknown) [From Prevnar] and feet x (units unknown) (unknown) (unknown) (no date) (unknown) (unknown) abnormal. COVID, influenza a/B/RSV negative. Head CT negative. CXR ?Possible (units unknown) (unknown) (unknown) (no date) (unknown) (unknown) after. 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 (units unknown) (unknown) (unknown) (no date) (unknown) (unknown) coordination issues, and concerns for neoplastic syndrome with a recent 30 lb (units unknown) (unknown) (unknown) (no date) (unknown) (unknown) due to his significant presentation of cachexia, weakness, malaise balance (units unknown) (unknown) (unknown) (no date) (unknown) (unknown) dysuria, frequency, urgency, hematuria, bowel changes, constipation, (units unknown) (unknown) (unknown) (no date) (unknown) (unknown) falls, head injury, LOC, fever, body aches, chills, cough, recent exposure to (units unknown) (unknown) (unknown) (no date) (unknown) (unknown) greater than left pulmonary effusion (units unknown) (unknown) (unknown) (no date) (unknown) (unknown) illness, abdominal pain, nausea, vomiting, urinary incontinence/retent ion, (units unknown) (unknown) (unknown) (no date) (unknown) (unknown) incontinence, melena, rashes, recent changes to medication, illness, injury, or (units unknown) (unknown) (unknown) (no date) (unknown) (unknown) infiltrates versus inflammatory pulmonary opacities mild to moderate right (units unknown) (unknown) (unknown) (no date) (unknown) (unknown) into the ED by his . Patient demonstrated escalating tachycardia with heart (units unknown) (unknown) (unknown) (no date) (unknown) (unknown) mild right and retrocardiac opacities Chest CT demonstrated bibasilar (units unknown) (unknown) (unknown) (no date) (unknown) (unknown) negative, BNP 1430. 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 [facility]ology's office (units unknown) (unknown) (unknown) (no date) (unknown) (unknown) pneumococcal 7-valent AdvReac Intermediate swelling Verified 06/16/22 12:46 (units unknown) (unknown) (unknown) (no date) (unknown) (unknown) rates 111-154, and tachypneic respiratory rate in the 20s. (units unknown) (unknown) (unknown) (no date) (unknown) (unknown) today; this time is exclusive of procedural time. (units unknown) (unknown) (unknown) (no date) (unknown) (unknown) trauma. (units unknown) (unknown) (unknown) (no date) (unknown) (unknown) vision, difficulty swallowing, speech impairment, numbness, tingling, recent (units unknown) (unknown) (unknown) (no date) (unknown) (unknown) weight loss, and night sweats with a shuffling gait x6 weeks. He was brought (units unknown) (unknown) Result panel 206 (unknown) (no date) (unknown) (unknown) (no value) (units unknown) (unknown) (unknown) (no date) (unknown) (unknown) [id number] (units unknown) (unknown) (unknown) (no date) (unknown) (unknown) 06/16/22 (units unknown) (unknown) (unknown) (no date) (unknown) (unknown) 1. Multiple ill-defined hypoattenuating mass lesions throughout the liver. The (units unknown) (unknown) (unknown) (no date) (unknown) (unknown) [address] [place] [address] (units unknown) (unknown) (unknown) (no date) (unknown) (unknown) 2. Numerous small hypoattenuating lesions throughout the spleen are also (units unknown) (unknown) (unknown) (no date) (unknown) (unknown) ABDOMEN: (units unknown) (unknown) (unknown) (no date) (unknown) (unknown) Abdominal Nodes: No retroperitoneal or mesenteric adenopathy by size criteria. (units unknown) (unknown) (unknown) (no date) (unknown) (unknown) Accession Number: [id number] (units unknown) (unknown) (unknown) (no date) (unknown) (unknown) Adrenal Glands: No adrenal nodules. (units unknown) (unknown) (unknown) (no date) (unknown) (unknown) After the administration of IV contrast, axial sections were acquired from the (units unknown) (unknown) (unknown) (no date) (unknown) (unknown) Age/Sex: 86 / M Date of Service: (units unknown) (unknown) (unknown) (no date) (unknown) (unknown) [place] [address] (units unknown) (unknown) (unknown) (no date) (unknown) (unknown) Approved by: Donovan Hadley M.D. on 06/16/2022 at 23:52 (units unknown) (unknown) (unknown) (no date) (unknown) (unknown) Biliary ducts: No biliary ductal dilatation. (units unknown) (unknown) (unknown) (no date) (unknown) (unknown) Bladder: Unremarkable. (units unknown) (unknown) (unknown) (no date) (unknown) (unknown) Bones: There is heterogeneous appearance of the osseous structures in the (units unknown) (unknown) (unknown) (no date) (unknown) (unknown) COMPARISON: None. (units unknown) (unknown) (unknown) (no date) (unknown) (unknown) CT Scan Report (units unknown) (unknown) (unknown) (no date) (unknown) (unknown) : 1935 Acct:[id number] (units unknown) (unknown) (unknown) (no date) (unknown) (unknown) Dictated by: Donovan Hadley M.D. on 06/16/2022 at 23:44 (units unknown) (unknown) (unknown) (no date) (unknown) (unknown) FINDINGS: (units unknown) (unknown) (unknown) (no date) (unknown) (unknown) Gallbladder: The gallbladder is partially distended with mild wall thickening. (units unknown) (unknown) (unknown) (no date) (unknown) (unknown) Heart: Heart is normal in size. 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 (units unknown) (unknown) (unknown) (no date) (unknown) (unknown) [facility] (units unknown) (unknown) (unknown) (no date) (unknown) (unknown) Kidneys and Ureters: No hydronephrosis. There are bilateral renal cysts. (units unknown) (unknown) (unknown) (no date) (unknown) (unknown) Liver: There is heterogeneous enhancement of the liver with numerous ill (units unknown) (unknown) (unknown) (no date) (unknown) (unknown) Loc: AC 206-1 (units unknown) (unknown) (unknown) (no date) (unknown) (unknown) Lung bases: There are bilateral pleural effusions, small to moderate on the (units unknown) (unknown) (unknown) (no date) (unknown) (unknown) Miscellaneous: No inguinal hernias are seen. (units unknown) (unknown) (unknown) (no date) (unknown) (unknown) No free (units unknown) (unknown) (unknown) (no date) (unknown) (unknown) No (units unknown) (unknown) (unknown) (no date) (unknown) (unknown) Ordering Provider: Hawa MichaelP- (units unknown) (unknown) (unknown) (no date) (unknown) (unknown) PELVIS: (units unknown) (unknown) (unknown) (no date) (unknown) (unknown) PROCEDURE: CT ABDOMEN PELVIS W CON (units unknown) (unknown) (unknown) (no date) (unknown) (unknown) Pancreas: Unremarkable. (units unknown) (unknown) (unknown) (no date) (unknown) (unknown) Patient: Yoseph Cardoso MR#: [id number] (units unknown) (unknown) (unknown) (no date) (unknown) (unknown) Pelvic Nodes: No enlarged lymph nodes. (units unknown) (unknown) (unknown) (no date) (unknown) (unknown) Pelvic Organs: Unremarkable. (units unknown) (unknown) (unknown) (no date) (unknown) (unknown) Peritoneum: There is a small to moderate amount of free fluid in the pelvis. (units unknown) (unknown) (unknown) (no date) (unknown) (unknown) Procedure: CT abdomen pelvis w con (units unknown) (unknown) (unknown) (no date) (unknown) (unknown) Signed (units unknown) (unknown) (unknown) (no date) (unknown) (unknown) Spleen: Normal in size. Numerous small hypoattenuating lesions are (units unknown) (unknown) (unknown) (no date) (unknown) (unknown) Stomach and Bowel: Stomach, small bowel loops, and colon are normal in caliber (units unknown) (unknown) (unknown) (no date) (unknown) (unknown) TECHNIQUE: (units unknown) (unknown) (unknown) (no date) (unknown) (unknown) Ventral Wall: No hernia. (units unknown) (unknown) (unknown) (no date) (unknown) (unknown) Vessels: Aorta and inferior vena cava are normal in size. (units unknown) (unknown) (unknown) (no date) (unknown) (unknown) Visualized (units unknown) (unknown) (unknown) (no date) (unknown) (unknown) air. (units unknown) (unknown) (unknown) (no date) (unknown) (unknown) and wall (units unknown) (unknown) (unknown) (no date) (unknown) (unknown) and/or kV according to patient size. (units unknown) (unknown) (unknown) (no date) (unknown) (unknown) are nonspecific and the differential includes metastatic disease are as well as (units unknown) (unknown) (unknown) (no date) (unknown) (unknown) as micro abscesses. Correlation is recommended clinically and if indicated (units unknown) (unknown) (unknown) (no date) (unknown) (unknown) calcified gallstones. (units unknown) (unknown) (unknown) (no date) (unknown) (unknown) confluent (units unknown) (unknown) (unknown) (no date) (unknown) (unknown) consolidation within the left lower lobe.. (units unknown) (unknown) (unknown) (no date) (unknown) (unknown) defined (units unknown) (unknown) (unknown) (no date) (unknown) (unknown) demonstrated (units unknown) (unknown) (unknown) (no date) (unknown) (unknown) diverticulosis without acute diverticulitis. (units unknown) (unknown) (unknown) (no date) (unknown) (unknown) dose reduction, the following was used: automated exposure control, adjustment (units unknown) (unknown) (unknown) (no date) (unknown) (unknown) etiologies such (units unknown) (unknown) (unknown) (no date) (unknown) (unknown) evaluation may be obtained with MRI. (units unknown) (unknown) (unknown) (no date) (unknown) (unknown) findings (units unknown) (unknown) (unknown) (no date) (unknown) (unknown) further (units unknown) (unknown) (unknown) (no date) (unknown) (unknown) hypoattenuating mass lesions including an ill-defined posterior hypoattenuating (units unknown) (unknown) (unknown) (no date) (unknown) (unknown) image 15. (units unknown) (unknown) (unknown) (no date) (unknown) (unknown) image 25. (units unknown) (unknown) (unknown) (no date) (unknown) (unknown) indistinct areas of hypodensity. The findings likely reflect osteopenia. (units unknown) (unknown) (unknown) (no date) (unknown) (unknown) is colonic (units unknown) (unknown) (unknown) (no date) (unknown) (unknown) lesion in (units unknown) (unknown) (unknown) (no date) (unknown) (unknown) lung bases (units unknown) (unknown) (unknown) (no date) (unknown) (unknown) multifocal hepatocellular carcinoma or infection. (units unknown) (unknown) (unknown) (no date) (unknown) (unknown) nonspecific and (units unknown) (unknown) (unknown) (no date) (unknown) (unknown) of mA (units unknown) (unknown) (unknown) (no date) (unknown) (unknown) osseous structures demonstrate no suspicious focal lesions. (units unknown) (unknown) (unknown) (no date) (unknown) (unknown) pelvis with (units unknown) (unknown) (unknown) (no date) (unknown) (unknown) radiation (units unknown) (unknown) (unknown) (no date) (unknown) (unknown) right and (units unknown) (unknown) (unknown) (no date) (unknown) (unknown) series 2, (units unknown) (unknown) (unknown) (no date) (unknown) (unknown) small on the left, with associated compressive atelectasis. There is also (units unknown) (unknown) (unknown) (no date) (unknown) (unknown) the differential also includes neoplastic processes as well as infectious (units unknown) (unknown) (unknown) (no date) (unknown) (unknown) the right hepatic lobe measuring up to approximately 5.6 x 4.4 cm on series 2, (units unknown) (unknown) (unknown) (no date) (unknown) (unknown) thickness. No pericecal inflammatory changes to suggest appendicitis. There (units unknown) (unknown) (unknown) (no date) (unknown) (unknown) throughout the spleen with the largest measuring up to approximately 1.2 cm on (units unknown) (unknown) (unknown) (no date) (unknown) (unknown) to the pubic symphysis. Coronal and sagittal reformats were performed. For (units unknown) (unknown) Result panel 207 (unknown) (no date) (unknown) (unknown) (no value) (units unknown) (unknown) (unknown) (no date) (unknown) (unknown) (past 8 hours): (units unknown) (unknown) (unknown) (no date) (unknown) (unknown) [id number] (units unknown) (unknown) (unknown) (no date) (unknown) (unknown) 06/16/22 06/16/22 06/16/22 (units unknown) (unknown) (unknown) (no date) (unknown) (unknown) 06/16/22 06/16/22 (units unknown) (unknown) (unknown) (no date) (unknown) (unknown) 06/16/22 12:35 (units unknown) (unknown) (unknown) (no date) (unknown) (unknown) 06/16/22 (units unknown) (unknown) (unknown) (no date) (unknown) (unknown) 12:35 12:35 12:35 (units unknown) (unknown) (unknown) (no date) (unknown) (unknown) 13:15 06/16/22 (units unknown) (unknown) (unknown) (no date) (unknown) (unknown) 13:30 (units unknown) (unknown) (unknown) (no date) (unknown) (unknown) 13:45 06/16/22 (units unknown) (unknown) (unknown) (no date) (unknown) (unknown) 13:46 06/16/22 (units unknown) (unknown) (unknown) (no date) (unknown) (unknown) 13:46 (units unknown) (unknown) (unknown) (no date) (unknown) (unknown) 14:00 06/16/22 (units unknown) (unknown) (unknown) (no date) (unknown) (unknown) 14:24 (units unknown) (unknown) (unknown) (no date) (unknown) (unknown) 14:30 06/16/22 (units unknown) (unknown) (unknown) (no date) (unknown) (unknown) 14:45 06/16/22 (units unknown) (unknown) (unknown) (no date) (unknown) (unknown) 15:00 (units unknown) (unknown) (unknown) (no date) (unknown) (unknown) 15:15 06/16/22 (units unknown) (unknown) (unknown) (no date) (unknown) (unknown) 15:30 06/16/22 (units unknown) (unknown) (unknown) (no date) (unknown) (unknown) 15:30 17:55 (units unknown) (unknown) (unknown) (no date) (unknown) (unknown) 15:34 06/16/22 (units unknown) (unknown) (unknown) (no date) (unknown) (unknown) 15:34 (units unknown) (unknown) (unknown) (no date) (unknown) (unknown) 15:45 06/16/22 (units unknown) (unknown) (unknown) (no date) (unknown) (unknown) 15:45 (units unknown) (unknown) (unknown) (no date) (unknown) (unknown) 16:00 06/16/22 (units unknown) (unknown) (unknown) (no date) (unknown) (unknown) 16:15 06/16/22 (units unknown) (unknown) (unknown) (no date) (unknown) (unknown) 16:15 (units unknown) (unknown) (unknown) (no date) (unknown) (unknown) 16:30 06/16/22 (units unknown) (unknown) (unknown) (no date) (unknown) (unknown) 16:31 06/16/22 (units unknown) (unknown) (unknown) (no date) (unknown) (unknown) 16:31 (units unknown) (unknown) (unknown) (no date) (unknown) (unknown) 16:45 06/16/22 (units unknown) (unknown) (unknown) (no date) (unknown) (unknown) 17:00 06/16/22 (units unknown) (unknown) (unknown) (no date) (unknown) (unknown) 17:00 (units unknown) (unknown) (unknown) (no date) (unknown) (unknown) 17:15 06/16/22 (units unknown) (unknown) (unknown) (no date) (unknown) (unknown) 17:15 (units unknown) (unknown) (unknown) (no date) (unknown) (unknown) 17:30 06/16/22 (units unknown) (unknown) (unknown) (no date) (unknown) (unknown) 17:45 (units unknown) (unknown) (unknown) (no date) (unknown) (unknown) 17:46 06/16/22 (units unknown) (unknown) (unknown) (no date) (unknown) (unknown) 17:59 (units unknown) (unknown) (unknown) (no date) (unknown) (unknown) 18:00 06/16/22 (units unknown) (unknown) (unknown) (no date) (unknown) (unknown) 18:01 06/16/22 (units unknown) (unknown) (unknown) (no date) (unknown) (unknown) 18:15 06/16/22 (units unknown) (unknown) (unknown) (no date) (unknown) (unknown) 18:15 (units unknown) (unknown) (unknown) (no date) (unknown) (unknown) 18:30 06/16/22 (units unknown) (unknown) (unknown) (no date) (unknown) (unknown) 18:30 (units unknown) (unknown) (unknown) (no date) (unknown) (unknown) 18:45 06/16/22 (units unknown) (unknown) (unknown) (no date) (unknown) (unknown) 19:00 06/16/22 (units unknown) (unknown) (unknown) (no date) (unknown) (unknown) 19:00 (units unknown) (unknown) (unknown) (no date) (unknown) (unknown) 19:15 06/16/22 (units unknown) (unknown) (unknown) (no date) (unknown) (unknown) 19:15 (units unknown) (unknown) (unknown) (no date) (unknown) (unknown) 19:30 06/16/22 (units unknown) (unknown) (unknown) (no date) (unknown) (unknown) 19:45 06/16/22 (units unknown) (unknown) (unknown) (no date) (unknown) (unknown) 19:45 (units unknown) (unknown) (unknown) (no date) (unknown) (unknown) 20:00 06/16/22 (units unknown) (unknown) (unknown) (no date) (unknown) (unknown) 20:00 (units unknown) (unknown) (unknown) (no date) (unknown) (unknown) 20:15 06/16/22 (units unknown) (unknown) (unknown) (no date) (unknown) (unknown) 20:30 06/16/22 (units unknown) (unknown) (unknown) (no date) (unknown) (unknown) 20:30 (units unknown) (unknown) (unknown) (no date) (unknown) (unknown) 20:45 06/16/22 (units unknown) (unknown) (unknown) (no date) (unknown) (unknown) 20:46 06/16/22 (units unknown) (unknown) (unknown) (no date) (unknown) (unknown) 20:46 (units unknown) (unknown) (unknown) (no date) (unknown) (unknown) 20:55 (units unknown) (unknown) (unknown) (no date) (unknown) (unknown) 34, glucose 146, calcium 8.1, magnesium 2.6, phosphorus 4.1, bili 2.1, AST 61, (units unknown) (unknown) (unknown) (no date) (unknown) (unknown) 4 mos (units unknown) (unknown) (unknown) (no date) (unknown) (unknown) 4.3, repeat 2.7, procalcitonin 3.27, PT 17.6, INR 1.5, PTT 38. Sodium 135, BUN (units unknown) (unknown) (unknown) (no date) (unknown) (unknown) 98% on room air. Patient has no WBC, but left shiftneut 8200, initial lactate (units unknown) (unknown) (unknown) (no date) (unknown) (unknown) ALT 63 H (units unknown) (unknown) (unknown) (no date) (unknown) (unknown) ALT 63, alk-phos 428, total protein 5.8, albumin 3.1, CK 53, initial troponin (units unknown) (unknown) (unknown) (no date) (unknown) (unknown) ALT (units unknown) (unknown) (unknown) (no date) (unknown) (unknown) APTT 38 H (units unknown) (unknown) (unknown) (no date) (unknown) (unknown) APTT (units unknown) (unknown) (unknown) (no date) (unknown) (unknown) AST 61 H (units unknown) (unknown) (unknown) (no date) (unknown) (unknown) AST (units unknown) (unknown) (unknown) (no date) (unknown) (unknown) Age/Sex: 86 / M (units unknown) (unknown) (unknown) (no date) (unknown) (unknown) Albumin 3.1 L (units unknown) (unknown) (unknown) (no date) (unknown) (unknown) Albumin (units unknown) (unknown) (unknown) (no date) (unknown) (unknown) Albumin/Globulin Ratio 1.1 (units unknown) (unknown) (unknown) (no date) (unknown) (unknown) Albumin/Globulin Ratio (units unknown) (unknown) (unknown) (no date) (unknown) (unknown) Alkaline Phosphatase 428 H (units unknown) (unknown) (unknown) (no date) (unknown) (unknown) Alkaline Phosphatase (units unknown) (unknown) (unknown) (no date) (unknown) (unknown) Allergies (units unknown) (unknown) (unknown) (no date) (unknown) (unknown) Allergy/AdvReac Type Severity Reaction Status Date / Time (units unknown) (unknown) (unknown) (no date) (unknown) (unknown) Assessment + Plan (units unknown) (unknown) (unknown) (no date) (unknown) (unknown) BUN 34 H (units unknown) (unknown) (unknown) (no date) (unknown) (unknown) BUN (units unknown) (unknown) (unknown) (no date) (unknown) (unknown) BUN/Creatinine Ratio 34.3 H (units unknown) (unknown) (unknown) (no date) (unknown) (unknown) BUN/Creatinine Ratio (units unknown) (unknown) (unknown) (no date) (unknown) (unknown) Baso # (Auto) 100 (units unknown) (unknown) (unknown) (no date) (unknown) (unknown) Baso # (Auto) (units unknown) (unknown) (unknown) (no date) (unknown) (unknown) Baso % (Auto) 0.8 (units unknown) (unknown) (unknown) (no date) (unknown) (unknown) Baso % (Auto) (units unknown) (unknown) (unknown) (no date) (unknown) (unknown) Blood Pressure 141/57 H (units unknown) (unknown) (unknown) (no date) (unknown) (unknown) Blood Pressure 141/73 H (units unknown) (unknown) (unknown) (no date) (unknown) (unknown) Blood Pressure 142/65 H 156/70 H (units unknown) (unknown) (unknown) (no date) (unknown) (unknown) Blood Pressure 142/67 H (units unknown) (unknown) (unknown) (no date) (unknown) (unknown) Blood Pressure 143/67 H (units unknown) (unknown) (unknown) (no date) (unknown) (unknown) Blood Pressure 145/69 H (units unknown) (unknown) (unknown) (no date) (unknown) (unknown) Blood Pressure 146/69 H (units unknown) (unknown) (unknown) (no date) (unknown) (unknown) Blood Pressure 147/71 H 150/72 H (units unknown) (unknown) (unknown) (no date) (unknown) (unknown) Blood Pressure 149/68 H 130/59 L (units unknown) (unknown) (unknown) (no date) (unknown) (unknown) Blood Pressure 149/78 H 155/70 H (units unknown) (unknown) (unknown) (no date) (unknown) (unknown) Blood Pressure 150/73 H (units unknown) (unknown) (unknown) (no date) (unknown) (unknown) Blood Pressure 151/72 H (units unknown) (unknown) (unknown) (no date) (unknown) (unknown) Blood Pressure 154/73 H (units unknown) (unknown) (unknown) (no date) (unknown) (unknown) Blood Pressure 156/72 H 151/72 H (units unknown) (unknown) (unknown) (no date) (unknown) (unknown) Blood Pressure 162/114 H (units unknown) (unknown) (unknown) (no date) (unknown) (unknown) Blood Pressure 164/94 H 164/96 H (units unknown) (unknown) (unknown) (no date) (unknown) (unknown) Blood Pressure 179/74 H 179/94 H (units unknown) (unknown) (unknown) (no date) (unknown) (unknown) Blood Pressure 186/112 H 169/75 H (units unknown) (unknown) (unknown) (no date) (unknown) (unknown) Blood Pressure (units unknown) (unknown) (unknown) (no date) (unknown) (unknown) CK-MB (CK-2) Rel Index TNP (units unknown) (unknown) (unknown) (no date) (unknown) (unknown) CK-MB (CK-2) Rel Index (units unknown) (unknown) (unknown) (no date) (unknown) (unknown) CK-MB (CK-2) TNP (units unknown) (unknown) (unknown) (no date) (unknown) (unknown) CK-MB (CK-2) (units unknown) (unknown) (unknown) (no date) (unknown) (unknown) Calcium 8.1 L (units unknown) (unknown) (unknown) (no date) (unknown) (unknown) Calcium (units unknown) (unknown) (unknown) (no date) (unknown) (unknown) Carbon Dioxide 28 (units unknown) (unknown) (unknown) (no date) (unknown) (unknown) Carbon Dioxide (units unknown) (unknown) (unknown) (no date) (unknown) (unknown) Chief complaint: Pain near pacemaker (units unknown) (unknown) (unknown) (no date) (unknown) (unknown) Chloride 99 (units unknown) (unknown) (unknown) (no date) (unknown) (unknown) Chloride (units unknown) (unknown) (unknown) (no date) (unknown) (unknown) Creatinine 0.99 (units unknown) (unknown) (unknown) (no date) (unknown) (unknown) Creatinine (units unknown) (unknown) (unknown) (no date) (unknown) (unknown) Critical Care time: (units unknown) (unknown) (unknown) (no date) (unknown) (unknown) : 1935 Acct:[id number] (units unknown) (unknown) (unknown) (no date) (unknown) (unknown) Date Patient Seen: 06/16/22 (units unknown) (unknown) (unknown) (no date) (unknown) (unknown) Date of Service: 06/16/22 (units unknown) (unknown) (unknown) (no date) (unknown) (unknown) Yoseph Cardoso is a 86-year-old male with a history of atrial fibrillation, with (units unknown) (unknown) (unknown) (no date) (unknown) (unknown) Environment (units unknown) (unknown) (unknown) (no date) (unknown) (unknown) Eos # (Auto) 0 (units unknown) (unknown) (unknown) (no date) (unknown) (unknown) Eos # (Auto) (units unknown) (unknown) (unknown) (no date) (unknown) (unknown) Eos % (Auto) 0.1 L (units unknown) (unknown) (unknown) (no date) (unknown) (unknown) Eos % (Auto) (units unknown) (unknown) (unknown) (no date) (unknown) (unknown) Estimated GFR > 60 (units unknown) (unknown) (unknown) (no date) (unknown) (unknown) Estimated GFR (units unknown) (unknown) (unknown) (no date) (unknown) (unknown) Exam (units unknown) (unknown) (unknown) (no date) (unknown) (unknown) Family + Social History (units unknown) (unknown) (unknown) (no date) (unknown) (unknown) Feels Safe in Current Yes (units unknown) (unknown) (unknown) (no date) (unknown) (unknown) Fever, jaundice, right upper quadrant pain? (units unknown) (unknown) (unknown) (no date) (unknown) (unknown) Globulin 2.7 (units unknown) (unknown) (unknown) (no date) (unknown) (unknown) Globulin (units unknown) (unknown) (unknown) (no date) (unknown) (unknown) Glucose 146 H (units unknown) (unknown) (unknown) (no date) (unknown) (unknown) Glucose (units unknown) (unknown) (unknown) (no date) (unknown) (unknown) Hct 46.6 (units unknown) (unknown) (unknown) (no date) (unknown) (unknown) Hct (units unknown) (unknown) (unknown) (no date) (unknown) (unknown) Hgb 15.4 (units unknown) (unknown) (unknown) (no date) (unknown) (unknown) Hgb (units unknown) (unknown) (unknown) (no date) (unknown) (unknown) History + Physical Report (units unknown) (unknown) (unknown) (no date) (unknown) (unknown) History of Present Illness (units unknown) (unknown) (unknown) (no date) (unknown) (unknown) Home Medications and Allergies (units unknown) (unknown) (unknown) (no date) (unknown) (unknown) Home Medications (units unknown) (unknown) (unknown) (no date) (unknown) (unknown) I spent a total of [] minutes of critical care time on this patient's care (units unknown) (unknown) (unknown) (no date) (unknown) (unknown) INR 1.5 H (units unknown) (unknown) (unknown) (no date) (unknown) (unknown) INR (units unknown) (unknown) (unknown) (no date) (unknown) (unknown) Influenza A (RT-PCR) Flu a negative (units unknown) (unknown) (unknown) (no date) (unknown) (unknown) Influenza A (RT-PCR) (units unknown) (unknown) (unknown) (no date) (unknown) (unknown) Influenza B (RT-PCR) Flu b negative (units unknown) (unknown) (unknown) (no date) (unknown) (unknown) Influenza B (RT-PCR) (units unknown) (unknown) (unknown) (no date) (unknown) (unknown) [address] [address] (units unknown) (unknown) (unknown) (no date) (unknown) (unknown) Laboratory Results - last 24 hr (units unknown) (unknown) (unknown) (no date) (unknown) (unknown) Labs (units unknown) (unknown) (unknown) (no date) (unknown) (unknown) Labs: (units unknown) (unknown) (unknown) (no date) (unknown) (unknown) Lactate 2.7 H (units unknown) (unknown) (unknown) (no date) (unknown) (unknown) Lactate 4.3 H* (units unknown) (unknown) (unknown) (no date) (unknown) (unknown) Lactate (units unknown) (unknown) (unknown) (no date) (unknown) (unknown) Lipase 45 (units unknown) (unknown) (unknown) (no date) (unknown) (unknown) Lipase (units unknown) (unknown) (unknown) (no date) (unknown) (unknown) Lymph # (Auto) 400 L (units unknown) (unknown) (unknown) (no date) (unknown) (unknown) Lymph # (Auto) (units unknown) (unknown) (unknown) (no date) (unknown) (unknown) Lymph % (Auto) 4.6 L (units unknown) (unknown) (unknown) (no date) (unknown) (unknown) Lymph % (Auto) (units unknown) (unknown) (unknown) (no date) (unknown) (unknown) MCH 30.4 (units unknown) (unknown) (unknown) (no date) (unknown) (unknown) MCH (units unknown) (unknown) (unknown) (no date) (unknown) (unknown) MCHC 33.0 (units unknown) (unknown) (unknown) (no date) (unknown) (unknown) MCHC (units unknown) (unknown) (unknown) (no date) (unknown) (unknown) MCV 92.4 (units unknown) (unknown) (unknown) (no date) (unknown) (unknown) MCV (units unknown) (unknown) (unknown) (no date) (unknown) (unknown) Magnesium 2.6 H (units unknown) (unknown) (unknown) (no date) (unknown) (unknown) Magnesium (units unknown) (unknown) (unknown) (no date) (unknown) (unknown) Medication Instructions Recorded Confirmed Type (units unknown) (unknown) (unknown) (no date) (unknown) (unknown) Meds (units unknown) (unknown) (unknown) (no date) (unknown) (unknown) [place] # (Auto) 900 (units unknown) (unknown) (unknown) (no date) (unknown) (unknown) [place] # (Auto) (units unknown) (unknown) (unknown) (no date) (unknown) (unknown) [place] % (Auto) 9.4 (units unknown) (unknown) (unknown) (no date) (unknown) (unknown) [place] % (Auto) (units unknown) (unknown) (unknown) (no date) (unknown) (unknown) NT-Pro-B Natriuret Pep 1430 H (units unknown) (unknown) (unknown) (no date) (unknown) (unknown) NT-Pro-B Natriuret Pep (units unknown) (unknown) (unknown) (no date) (unknown) (unknown) Narrative: (units unknown) (unknown) (unknown) (no date) (unknown) (unknown) Neut # (Auto) 8200 H (units unknown) (unknown) (unknown) (no date) (unknown) (unknown) Neut # (Auto) (units unknown) (unknown) (unknown) (no date) (unknown) (unknown) Neut % (Auto) 85.1 H (units unknown) (unknown) (unknown) (no date) (unknown) (unknown) Neut % (Auto) (units unknown) (unknown) (unknown) (no date) (unknown) (unknown) No Known Home Medications 12/20/20 12/20/20 History (units unknown) (unknown) (unknown) (no date) (unknown) (unknown) Objective (units unknown) (unknown) (unknown) (no date) (unknown) (unknown) On admit patient denies chest pain, shortness in breath, headache, changes in (units unknown) (unknown) (unknown) (no date) (unknown) (unknown) Oxygen Delivery Method Room Air (units unknown) (unknown) (unknown) (no date) (unknown) (unknown) Oxygen Delivery Method (units unknown) (unknown) (unknown) (no date) (unknown) (unknown) PT 17.6 H (units unknown) (unknown) (unknown) (no date) (unknown) (unknown) PT (units unknown) (unknown) (unknown) (no date) (unknown) (unknown) Patient History (units unknown) (unknown) (unknown) (no date) (unknown) (unknown) Patient: Yoseph Cardoso MR#: [id number] (units unknown) (unknown) (unknown) (no date) (unknown) (unknown) Phosphorus 4.1 H (units unknown) (unknown) (unknown) (no date) (unknown) (unknown) Phosphorus (units unknown) (unknown) (unknown) (no date) (unknown) (unknown) Plt Count 222 (units unknown) (unknown) (unknown) (no date) (unknown) (unknown) Plt Count (units unknown) (unknown) (unknown) (no date) (unknown) (unknown) Potassium 4.8 (units unknown) (unknown) (unknown) (no date) (unknown) (unknown) Potassium (units unknown) (unknown) (unknown) (no date) (unknown) (unknown) Procalcitonin 3.27 H (units unknown) (unknown) (unknown) (no date) (unknown) (unknown) Procalcitonin (units unknown) (unknown) (unknown) (no date) (unknown) (unknown) Provider: Hawa Michael (units unknown) (unknown) (unknown) (no date) (unknown) (unknown) Pulse Oximetry 93 100 (units unknown) (unknown) (unknown) (no date) (unknown) (unknown) Pulse Oximetry 94 96 (units unknown) (unknown) (unknown) (no date) (unknown) (unknown) Pulse Oximetry 95 (units unknown) (unknown) (unknown) (no date) (unknown) (unknown) Pulse Oximetry 96 91 (units unknown) (unknown) (unknown) (no date) (unknown) (unknown) Pulse Oximetry 96 99 (units unknown) (unknown) (unknown) (no date) (unknown) (unknown) Pulse Oximetry 96 (units unknown) (unknown) (unknown) (no date) (unknown) (unknown) Pulse Oximetry 97 96 97 (units unknown) (unknown) (unknown) (no date) (unknown) (unknown) Pulse Oximetry 97 97 98 (units unknown) (unknown) (unknown) (no date) (unknown) (unknown) Pulse Oximetry 97 97 (units unknown) (unknown) (unknown) (no date) (unknown) (unknown) Pulse Oximetry 97 (units unknown) (unknown) (unknown) (no date) (unknown) (unknown) Pulse Oximetry 98 97 (units unknown) (unknown) (unknown) (no date) (unknown) (unknown) Pulse Oximetry 98 (units unknown) (unknown) (unknown) (no date) (unknown) (unknown) Pulse Oximetry (units unknown) (unknown) (unknown) (no date) (unknown) (unknown) Pulse Rate 111 H (units unknown) (unknown) (unknown) (no date) (unknown) (unknown) Pulse Rate 114 H 118 H (units unknown) (unknown) (unknown) (no date) (unknown) (unknown) Pulse Rate 154 H (units unknown) (unknown) (unknown) (no date) (unknown) (unknown) Pulse Rate 72 66 (units unknown) (unknown) (unknown) (no date) (unknown) (unknown) Pulse Rate 72 71 (units unknown) (unknown) (unknown) (no date) (unknown) (unknown) Pulse Rate 72 74 (units unknown) (unknown) (unknown) (no date) (unknown) (unknown) Pulse Rate 72 (units unknown) (unknown) (unknown) (no date) (unknown) (unknown) Pulse Rate 73 74 (units unknown) (unknown) (unknown) (no date) (unknown) (unknown) Pulse Rate 73 87 98 H (units unknown) (unknown) (unknown) (no date) (unknown) (unknown) Pulse Rate 73 (units unknown) (unknown) (unknown) (no date) (unknown) (unknown) Pulse Rate 74 104 H 106 H (units unknown) (unknown) (unknown) (no date) (unknown) (unknown) Pulse Rate 75 116 H (units unknown) (unknown) (unknown) (no date) (unknown) (unknown) Pulse Rate 75 70 (units unknown) (unknown) (unknown) (no date) (unknown) (unknown) Pulse Rate 75 74 74 (units unknown) (unknown) (unknown) (no date) (unknown) (unknown) Pulse Rate 75 (units unknown) (unknown) (unknown) (no date) (unknown) (unknown) Pulse Rate 76 (units unknown) (unknown) (unknown) (no date) (unknown) (unknown) Pulse Rate 78 75 (units unknown) (unknown) (unknown) (no date) (unknown) (unknown) Pulse Rate 84 77 (units unknown) (unknown) (unknown) (no date) (unknown) (unknown) Pulse Rate 86 72 (units unknown) (unknown) (unknown) (no date) (unknown) (unknown) Pulse Rate 98 H (units unknown) (unknown) (unknown) (no date) (unknown) (unknown) RBC 5.05 (units unknown) (unknown) (unknown) (no date) (unknown) (unknown) RBC (units unknown) (unknown) (unknown) (no date) (unknown) (unknown) RDW 14.4 (units unknown) (unknown) (unknown) (no date) (unknown) (unknown) RDW (units unknown) (unknown) (unknown) (no date) (unknown) (unknown) RSV (PCR) Negative (units unknown) (unknown) (unknown) (no date) (unknown) (unknown) RSV (PCR) (units unknown) (unknown) (unknown) (no date) (unknown) (unknown) Respiratory Rate 12 25 H (units unknown) (unknown) (unknown) (no date) (unknown) (unknown) Respiratory Rate 13 26 H (units unknown) (unknown) (unknown) (no date) (unknown) (unknown) Respiratory Rate 16 20 (units unknown) (unknown) (unknown) (no date) (unknown) (unknown) Respiratory Rate 17 26 H (units unknown) (unknown) (unknown) (no date) (unknown) (unknown) Respiratory Rate 17 (units unknown) (unknown) (unknown) (no date) (unknown) (unknown) Respiratory Rate 18 32 H (units unknown) (unknown) (unknown) (no date) (unknown) (unknown) Respiratory Rate 18 (units unknown) (unknown) (unknown) (no date) (unknown) (unknown) Respiratory Rate 19 18 (units unknown) (unknown) (unknown) (no date) (unknown) (unknown) Respiratory Rate 19 34 H 39 H (units unknown) (unknown) (unknown) (no date) (unknown) (unknown) Respiratory Rate 19 (units unknown) (unknown) (unknown) (no date) (unknown) (unknown) Respiratory Rate 20 (units unknown) (unknown) (unknown) (no date) (unknown) (unknown) Respiratory Rate 22 20 (units unknown) (unknown) (unknown) (no date) (unknown) (unknown) Respiratory Rate 23 17 16 (units unknown) (unknown) (unknown) (no date) (unknown) (unknown) Respiratory Rate 23 18 (units unknown) (unknown) (unknown) (no date) (unknown) (unknown) Respiratory Rate 24 19 (units unknown) (unknown) (unknown) (no date) (unknown) (unknown) Respiratory Rate 24 23 (units unknown) (unknown) (unknown) (no date) (unknown) (unknown) Respiratory Rate 27 H (units unknown) (unknown) (unknown) (no date) (unknown) (unknown) Respiratory Rate 29 H (units unknown) (unknown) (unknown) (no date) (unknown) (unknown) Respiratory Rate 30 H 24 (units unknown) (unknown) (unknown) (no date) (unknown) (unknown) Respiratory Rate (units unknown) (unknown) (unknown) (no date) (unknown) (unknown) SARS-CoV-2 (PCR) Negative (units unknown) (unknown) (unknown) (no date) (unknown) (unknown) SARS-CoV-2 (PCR) (units unknown) (unknown) (unknown) (no date) (unknown) (unknown) Safety + Behavioral: (units unknown) (unknown) (unknown) (no date) (unknown) (unknown) Signed By: (units unknown) (unknown) (unknown) (no date) (unknown) (unknown) Smoking Status Smoker, status unknown (units unknown) (unknown) (unknown) (no date) (unknown) (unknown) Sodium 135 L (units unknown) (unknown) (unknown) (no date) (unknown) (unknown) Sodium (units unknown) (unknown) (unknown) (no date) (unknown) (unknown) Substance Use Type does not use (units unknown) (unknown) (unknown) (no date) (unknown) (unknown) Temperature 98.1 F (units unknown) (unknown) (unknown) (no date) (unknown) (unknown) Temperature (units unknown) (unknown) (unknown) (no date) (unknown) (unknown) Time Patient Seen: 15:35 (units unknown) (unknown) (unknown) (no date) (unknown) (unknown) Time Spent With Patient (units unknown) (unknown) (unknown) (no date) (unknown) (unknown) Tobacco + Substance use: (units unknown) (unknown) (unknown) (no date) (unknown) (unknown) Total Bilirubin 2.1 H (units unknown) (unknown) (unknown) (no date) (unknown) (unknown) Total Bilirubin (units unknown) (unknown) (unknown) (no date) (unknown) (unknown) Total Creatine Kinase 53 L (units unknown) (unknown) (unknown) (no date) (unknown) (unknown) Total Creatine Kinase (units unknown) (unknown) (unknown) (no date) (unknown) (unknown) Total Protein 5.8 L (units unknown) (unknown) (unknown) (no date) (unknown) (unknown) Total Protein (units unknown) (unknown) (unknown) (no date) (unknown) (unknown) Troponin I < 0.012 (units unknown) (unknown) (unknown) (no date) (unknown) (unknown) Troponin I (units unknown) (unknown) (unknown) (no date) (unknown) (unknown) Upon admit BP 149/78, tachycardic heart rate 154, tachypneic R 29, O2 saturation (units unknown) (unknown) (unknown) (no date) (unknown) (unknown) Ur Bilirubin Confirm Positive H (units unknown) (unknown) (unknown) (no date) (unknown) (unknown) Ur Bilirubin Confirm (units unknown) (unknown) (unknown) (no date) (unknown) (unknown) Ur Culture Indicated? Specimen cultured (units unknown) (unknown) (unknown) (no date) (unknown) (unknown) Ur Culture Indicated? (units unknown) (unknown) (unknown) (no date) (unknown) (unknown) Ur Leukocyte Esterase Trace H (units unknown) (unknown) (unknown) (no date) (unknown) (unknown) Ur Leukocyte Esterase (units unknown) (unknown) (unknown) (no date) (unknown) (unknown) Ur Specific [place] 1.020 (units unknown) (unknown) (unknown) (no date) (unknown) (unknown) Ur Specific [place] (units unknown) (unknown) (unknown) (no date) (unknown) (unknown) Ur Squamous Epith Cells 1-5 /hpf (units unknown) (unknown) (unknown) (no date) (unknown) (unknown) Ur Squamous Epith Cells (units unknown) (unknown) (unknown) (no date) (unknown) (unknown) Urine Appearance Cloudy (units unknown) (unknown) (unknown) (no date) (unknown) (unknown) Urine Appearance (units unknown) (unknown) (unknown) (no date) (unknown) (unknown) Urine Bacteria None seen (units unknown) (unknown) (unknown) (no date) (unknown) (unknown) Urine Bacteria (units unknown) (unknown) (unknown) (no date) (unknown) (unknown) Urine Bilirubin 3+ H (units unknown) (unknown) (unknown) (no date) (unknown) (unknown) Urine Bilirubin (units unknown) (unknown) (unknown) (no date) (unknown) (unknown) Urine Color Brown (units unknown) (unknown) (unknown) (no date) (unknown) (unknown) Urine Color (units unknown) (unknown) (unknown) (no date) (unknown) (unknown) Urine Glucose (UA) Negative (units unknown) (unknown) (unknown) (no date) (unknown) (unknown) Urine Glucose (UA) (units unknown) (unknown) (unknown) (no date) (unknown) (unknown) Urine Ketones 1+ H (units unknown) (unknown) (unknown) (no date) (unknown) (unknown) Urine Ketones (units unknown) (unknown) (unknown) (no date) (unknown) (unknown) Urine Nitrate Positive H (units unknown) (unknown) (unknown) (no date) (unknown) (unknown) Urine Nitrate (units unknown) (unknown) (unknown) (no date) (unknown) (unknown) Urine Occult Blood Trace-intact (units unknown) (unknown) (unknown) (no date) (unknown) (unknown) Urine Occult Blood (units unknown) (unknown) (unknown) (no date) (unknown) (unknown) Urine Protein 1+ H (units unknown) (unknown) (unknown) (no date) (unknown) (unknown) Urine Protein (units unknown) (unknown) (unknown) (no date) (unknown) (unknown) Urine RBC 10-30/hpf H (units unknown) (unknown) (unknown) (no date) (unknown) (unknown) Urine RBC (units unknown) (unknown) (unknown) (no date) (unknown) (unknown) Urine Urobilinogen 1.0 (units unknown) (unknown) (unknown) (no date) (unknown) (unknown) Urine Urobilinogen (units unknown) (unknown) (unknown) (no date) (unknown) (unknown) Urine WBC 1-5/hpf (units unknown) (unknown) (unknown) (no date) (unknown) (unknown) Urine WBC (units unknown) (unknown) (unknown) (no date) (unknown) (unknown) Urine pH 6.5 (units unknown) (unknown) (unknown) (no date) (unknown) (unknown) Urine pH (units unknown) (unknown) (unknown) (no date) (unknown) (unknown) Vital Signs (units unknown) (unknown) (unknown) (no date) (unknown) (unknown) WBC 9.6 (units unknown) (unknown) (unknown) (no date) (unknown) (unknown) WBC (units unknown) (unknown) (unknown) (no date) (unknown) (unknown) [Embedded Image Not Available] (units unknown) (unknown) (unknown) (no date) (unknown) (unknown) [From Prevnar] and feet x (units unknown) (unknown) (unknown) (no date) (unknown) (unknown) abnormal. COVID, influenza a/B/RSV negative. Head CT negative. CXR ?Possible (units unknown) (unknown) (unknown) (no date) (unknown) (unknown) after. 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 SOFA:2 patient admitted for mild sepsis, (units unknown) (unknown) (unknown) (no date) (unknown) (unknown) illness, abdominal pain, nausea, vomiting, urinary incontinence/retent ion, (units unknown) (unknown) (unknown) (no date) (unknown) (unknown) incontinence, melena, rashes, recent changes to medication, illness, injury, or (units unknown) (unknown) (unknown) (no date) (unknown) (unknown) infiltrates versus inflammatory pulmonary opacities mild to moderate right (units unknown) (unknown) (unknown) (no date) (unknown) (unknown) into the ED by his . Patient demonstrated escalating tachycardia with heart (units unknown) (unknown) (unknown) (no date) (unknown) (unknown) mild right and retrocardiac opacities Chest CT demonstrated bibasilar (units unknown) (unknown) (unknown) (no date) (unknown) (unknown) negative, BNP 1430. 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 [place] cardiology's office (units unknown) (unknown) (unknown) (no date) (unknown) (unknown) pneumococcal 7-valent AdvReac Intermediate swelling Verified 06/16/22 12:46 (units unknown) (unknown) (unknown) (no date) (unknown) (unknown) rates 111-154, and tachypneic respiratory rate in the 20s. (units unknown) (unknown) (unknown) (no date) (unknown) (unknown) today; this time is exclusive of procedural time. (units unknown) (unknown) (unknown) (no date) (unknown) (unknown) transaminitis, UTI, elevated phosphorus. (units unknown) (unknown) (unknown) (no date) (unknown) (unknown) trauma. (units unknown) (unknown) (unknown) (no date) (unknown) (unknown) vision, difficulty swallowing, speech impairment, numbness, tingling, recent (units unknown) (unknown) (unknown) (no date) (unknown) (unknown) weight loss, and night sweats with a shuffling gait x6 weeks. He was brought (units unknown) (unknown) Result panel 208 (unknown) (no date) (unknown) (unknown) (no value) (units unknown) (unknown) (unknown) (no date) (unknown) (unknown) (past 8 hours): (units unknown) (unknown) (unknown) (no date) (unknown) (unknown) [id number] (units unknown) (unknown) (unknown) (no date) (unknown) (unknown) 06/16/22 06/16/22 06/16/22 (units unknown) (unknown) (unknown) (no date) (unknown) (unknown) 06/16/22 06/16/22 (units unknown) (unknown) (unknown) (no date) (unknown) (unknown) 06/16/22 12:35 (units unknown) (unknown) (unknown) (no date) (unknown) (unknown) 06/16/22 (units unknown) (unknown) (unknown) (no date) (unknown) (unknown) 12:35 12:35 12:35 (units unknown) (unknown) (unknown) (no date) (unknown) (unknown) 13:15 06/16/22 (units unknown) (unknown) (unknown) (no date) (unknown) (unknown) 13:30 (units unknown) (unknown) (unknown) (no date) (unknown) (unknown) 13:45 06/16/22 (units unknown) (unknown) (unknown) (no date) (unknown) (unknown) 13:46 06/16/22 (units unknown) (unknown) (unknown) (no date) (unknown) (unknown) 13:46 (units unknown) (unknown) (unknown) (no date) (unknown) (unknown) 14:00 06/16/22 (units unknown) (unknown) (unknown) (no date) (unknown) (unknown) 14:24 (units unknown) (unknown) (unknown) (no date) (unknown) (unknown) 14:30 06/16/22 (units unknown) (unknown) (unknown) (no date) (unknown) (unknown) 14:45 06/16/22 (units unknown) (unknown) (unknown) (no date) (unknown) (unknown) 15:00 (units unknown) (unknown) (unknown) (no date) (unknown) (unknown) 15:15 06/16/22 (units unknown) (unknown) (unknown) (no date) (unknown) (unknown) 15:30 06/16/22 (units unknown) (unknown) (unknown) (no date) (unknown) (unknown) 15:30 17:55 (units unknown) (unknown) (unknown) (no date) (unknown) (unknown) 15:34 06/16/22 (units unknown) (unknown) (unknown) (no date) (unknown) (unknown) 15:34 (units unknown) (unknown) (unknown) (no date) (unknown) (unknown) 15:45 06/16/22 (units unknown) (unknown) (unknown) (no date) (unknown) (unknown) 15:45 (units unknown) (unknown) (unknown) (no date) (unknown) (unknown) 16:00 06/16/22 (units unknown) (unknown) (unknown) (no date) (unknown) (unknown) 16:15 06/16/22 (units unknown) (unknown) (unknown) (no date) (unknown) (unknown) 16:15 (units unknown) (unknown) (unknown) (no date) (unknown) (unknown) 16:30 06/16/22 (units unknown) (unknown) (unknown) (no date) (unknown) (unknown) 16:31 06/16/22 (units unknown) (unknown) (unknown) (no date) (unknown) (unknown) 16:31 (units unknown) (unknown) (unknown) (no date) (unknown) (unknown) 16:45 06/16/22 (units unknown) (unknown) (unknown) (no date) (unknown) (unknown) 17:00 06/16/22 (units unknown) (unknown) (unknown) (no date) (unknown) (unknown) 17:00 (units unknown) (unknown) (unknown) (no date) (unknown) (unknown) 17:15 06/16/22 (units unknown) (unknown) (unknown) (no date) (unknown) (unknown) 17:15 (units unknown) (unknown) (unknown) (no date) (unknown) (unknown) 17:30 06/16/22 (units unknown) (unknown) (unknown) (no date) (unknown) (unknown) 17:45 (units unknown) (unknown) (unknown) (no date) (unknown) (unknown) 17:46 06/16/22 (units unknown) (unknown) (unknown) (no date) (unknown) (unknown) 17:59 (units unknown) (unknown) (unknown) (no date) (unknown) (unknown) 18:00 06/16/22 (units unknown) (unknown) (unknown) (no date) (unknown) (unknown) 18:01 06/16/22 (units unknown) (unknown) (unknown) (no date) (unknown) (unknown) 18:15 06/16/22 (units unknown) (unknown) (unknown) (no date) (unknown) (unknown) 18:15 (units unknown) (unknown) (unknown) (no date) (unknown) (unknown) 18:30 06/16/22 (units unknown) (unknown) (unknown) (no date) (unknown) (unknown) 18:30 (units unknown) (unknown) (unknown) (no date) (unknown) (unknown) 18:45 06/16/22 (units unknown) (unknown) (unknown) (no date) (unknown) (unknown) 19:00 06/16/22 (units unknown) (unknown) (unknown) (no date) (unknown) (unknown) 19:00 (units unknown) (unknown) (unknown) (no date) (unknown) (unknown) 19:15 06/16/22 (units unknown) (unknown) (unknown) (no date) (unknown) (unknown) 19:15 (units unknown) (unknown) (unknown) (no date) (unknown) (unknown) 19:30 06/16/22 (units unknown) (unknown) (unknown) (no date) (unknown) (unknown) 19:45 06/16/22 (units unknown) (unknown) (unknown) (no date) (unknown) (unknown) 19:45 (units unknown) (unknown) (unknown) (no date) (unknown) (unknown) 20:00 06/16/22 (units unknown) (unknown) (unknown) (no date) (unknown) (unknown) 20:00 (units unknown) (unknown) (unknown) (no date) (unknown) (unknown) 20:15 06/16/22 (units unknown) (unknown) (unknown) (no date) (unknown) (unknown) 20:30 06/16/22 (units unknown) (unknown) (unknown) (no date) (unknown) (unknown) 20:30 (units unknown) (unknown) (unknown) (no date) (unknown) (unknown) 20:45 06/16/22 (units unknown) (unknown) (unknown) (no date) (unknown) (unknown) 20:46 06/16/22 (units unknown) (unknown) (unknown) (no date) (unknown) (unknown) 20:46 (units unknown) (unknown) (unknown) (no date) (unknown) (unknown) 20:55 (units unknown) (unknown) (unknown) (no date) (unknown) (unknown) 34, glucose 146, calcium 8.1, magnesium 2.6, phosphorus 4.1, bili 2.1, AST 61, (units unknown) (unknown) (unknown) (no date) (unknown) (unknown) 4 mos (units unknown) (unknown) (unknown) (no date) (unknown) (unknown) 4.3, repeat 2.7, procalcitonin 3.27, PT 17.6, INR 1.5, PTT 38. Sodium 135, BUN (units unknown) (unknown) (unknown) (no date) (unknown) (unknown) 98% on room air. Patient has no WBC, but left shiftneut 8200, initial lactate (units unknown) (unknown) (unknown) (no date) (unknown) (unknown) ALT 63 H (units unknown) (unknown) (unknown) (no date) (unknown) (unknown) ALT 63, alk-phos 428, total protein 5.8, albumin 3.1, CK 53, initial troponin (units unknown) (unknown) (unknown) (no date) (unknown) (unknown) ALT (units unknown) (unknown) (unknown) (no date) (unknown) (unknown) APTT 38 H (units unknown) (unknown) (unknown) (no date) (unknown) (unknown) APTT (units unknown) (unknown) (unknown) (no date) (unknown) (unknown) AST 61 H (units unknown) (unknown) (unknown) (no date) (unknown) (unknown) AST (units unknown) (unknown) (unknown) (no date) (unknown) (unknown) Abdomen: Soft nontender, negative for organomegaly, or masses. Bowel sounds (units unknown) (unknown) (unknown) (no date) (unknown) (unknown) Age/Sex: 86 / M (units unknown) (unknown) (unknown) (no date) (unknown) (unknown) Albumin 3.1 L (units unknown) (unknown) (unknown) (no date) (unknown) (unknown) Albumin (units unknown) (unknown) (unknown) (no date) (unknown) (unknown) Albumin/Globulin Ratio 1.1 (units unknown) (unknown) (unknown) (no date) (unknown) (unknown) Albumin/Globulin Ratio (units unknown) (unknown) (unknown) (no date) (unknown) (unknown) Alkaline Phosphatase 428 H (units unknown) (unknown) (unknown) (no date) (unknown) (unknown) Alkaline Phosphatase (units unknown) (unknown) (unknown) (no date) (unknown) (unknown) All 12 point systems reviewed with the patient and are negative except otherwise (units unknown) (unknown) (unknown) (no date) (unknown) (unknown) Allergies (units unknown) (unknown) (unknown) (no date) (unknown) (unknown) Allergy/AdvReac Type Severity Reaction Status Date / Time (units unknown) (unknown) (unknown) (no date) (unknown) (unknown) Assessment + Plan narrative: (units unknown) (unknown) (unknown) (no date) (unknown) (unknown) Assessment + Plan (units unknown) (unknown) (unknown) (no date) (unknown) (unknown) Atrial fibrillation (units unknown) (unknown) (unknown) (no date) (unknown) (unknown) BUN 34 H (units unknown) (unknown) (unknown) (no date) (unknown) (unknown) BUN (units unknown) (unknown) (unknown) (no date) (unknown) (unknown) BUN/Creatinine Ratio 34.3 H (units unknown) (unknown) (unknown) (no date) (unknown) (unknown) BUN/Creatinine Ratio (units unknown) (unknown) (unknown) (no date) (unknown) (unknown) Baso # (Auto) 100 (units unknown) (unknown) (unknown) (no date) (unknown) (unknown) Baso # (Auto) (units unknown) (unknown) (unknown) (no date) (unknown) (unknown) Baso % (Auto) 0.8 (units unknown) (unknown) (unknown) (no date) (unknown) (unknown) Baso % (Auto) (units unknown) (unknown) (unknown) (no date) (unknown) (unknown) Blood Pressure 141/57 H (units unknown) (unknown) (unknown) (no date) (unknown) (unknown) Blood Pressure 141/73 H (units unknown) (unknown) (unknown) (no date) (unknown) (unknown) Blood Pressure 142/65 H 156/70 H (units unknown) (unknown) (unknown) (no date) (unknown) (unknown) Blood Pressure 142/67 H (units unknown) (unknown) (unknown) (no date) (unknown) (unknown) Blood Pressure 143/67 H (units unknown) (unknown) (unknown) (no date) (unknown) (unknown) Blood Pressure 145/69 H (units unknown) (unknown) (unknown) (no date) (unknown) (unknown) Blood Pressure 146/69 H (units unknown) (unknown) (unknown) (no date) (unknown) (unknown) Blood Pressure 147/71 H 150/72 H (units unknown) (unknown) (unknown) (no date) (unknown) (unknown) Blood Pressure 149/68 H 130/59 L (units unknown) (unknown) (unknown) (no date) (unknown) (unknown) Blood Pressure 149/78 H 155/70 H (units unknown) (unknown) (unknown) (no date) (unknown) (unknown) Blood Pressure 150/73 H (units unknown) (unknown) (unknown) (no date) (unknown) (unknown) Blood Pressure 151/72 H (units unknown) (unknown) (unknown) (no date) (unknown) (unknown) Blood Pressure 154/73 H (units unknown) (unknown) (unknown) (no date) (unknown) (unknown) Blood Pressure 156/72 H 151/72 H (units unknown) (unknown) (unknown) (no date) (unknown) (unknown) Blood Pressure 162/114 H (units unknown) (unknown) (unknown) (no date) (unknown) (unknown) Blood Pressure 164/94 H 164/96 H (units unknown) (unknown) (unknown) (no date) (unknown) (unknown) Blood Pressure 179/74 H 179/94 H (units unknown) (unknown) (unknown) (no date) (unknown) (unknown) Blood Pressure 186/112 H 169/75 H (units unknown) (unknown) (unknown) (no date) (unknown) (unknown) Blood Pressure (units unknown) (unknown) (unknown) (no date) (unknown) (unknown) CK-MB (CK-2) Rel Index TNP (units unknown) (unknown) (unknown) (no date) (unknown) (unknown) CK-MB (CK-2) Rel Index (units unknown) (unknown) (unknown) (no date) (unknown) (unknown) CK-MB (CK-2) TNP (units unknown) (unknown) (unknown) (no date) (unknown) (unknown) CK-MB (CK-2) (units unknown) (unknown) (unknown) (no date) (unknown) (unknown) Calcium 8.1 L (units unknown) (unknown) (unknown) (no date) (unknown) (unknown) Calcium (units unknown) (unknown) (unknown) (no date) (unknown) (unknown) Carbon Dioxide 28 (units unknown) (unknown) (unknown) (no date) (unknown) (unknown) Carbon Dioxide (units unknown) (unknown) (unknown) (no date) (unknown) (unknown) Cardio: S1 + S2 with regular rate and rhythm without murmur, rubs, or gallops, (units unknown) (unknown) (unknown) (no date) (unknown) (unknown) Chest: Normal AP diameter and contour without kyphoscoliosis, no nasal flaring, (units unknown) (unknown) (unknown) (no date) (unknown) (unknown) Chief complaint: Pain near pacemaker (units unknown) (unknown) (unknown) (no date) (unknown) (unknown) Chloride 99 (units unknown) (unknown) (unknown) (no date) (unknown) (unknown) Chloride (units unknown) (unknown) (unknown) (no date) (unknown) (unknown) Creatinine 0.99 (units unknown) (unknown) (unknown) (no date) (unknown) (unknown) Creatinine (units unknown) (unknown) (unknown) (no date) (unknown) (unknown) Critical Care time: (units unknown) (unknown) (unknown) (no date) (unknown) (unknown) : 1935 Acct:[id number] (units unknown) (unknown) (unknown) (no date) (unknown) (unknown) Date Patient Seen: 06/16/22 (units unknown) (unknown) (unknown) (no date) (unknown) (unknown) Date of Service: 06/16/22 (units unknown) (unknown) (unknown) (no date) (unknown) (unknown) Yoseph Cardoso is a 86-year-old male with a history of atrial fibrillation, with (units unknown) (unknown) (unknown) (no date) (unknown) (unknown) Environment (units unknown) (unknown) (unknown) (no date) (unknown) (unknown) Eos # (Auto) 0 (units unknown) (unknown) (unknown) (no date) (unknown) (unknown) Eos # (Auto) (units unknown) (unknown) (unknown) (no date) (unknown) (unknown) Eos % (Auto) 0.1 L (units unknown) (unknown) (unknown) (no date) (unknown) (unknown) Eos % (Auto) (units unknown) (unknown) (unknown) (no date) (unknown) (unknown) Estimated GFR > 60 (units unknown) (unknown) (unknown) (no date) (unknown) (unknown) Estimated GFR (units unknown) (unknown) (unknown) (no date) (unknown) (unknown) Exam Narrative: (units unknown) (unknown) (unknown) (no date) (unknown) (unknown) Exam (units unknown) (unknown) (unknown) (no date) (unknown) (unknown) Family + Social History (units unknown) (unknown) (unknown) (no date) (unknown) (unknown) Feels Safe in Current Yes (units unknown) (unknown) (unknown) (no date) (unknown) (unknown) Fever, jaundice, right upper quadrant pain? (units unknown) (unknown) (unknown) (no date) (unknown) (unknown) General: Patient is a well-developed, well-nourished in no distress at this (units unknown) (unknown) (unknown) (no date) (unknown) (unknown) Globulin 2.7 (units unknown) (unknown) (unknown) (no date) (unknown) (unknown) Globulin (units unknown) (unknown) (unknown) (no date) (unknown) (unknown) Glucose 146 H (units unknown) (unknown) (unknown) (no date) (unknown) (unknown) Glucose (units unknown) (unknown) (unknown) (no date) (unknown) (unknown) HEENT: Normocephalic, atraumatic, extraocular muscles intact, oral pharynx is (units unknown) (unknown) (unknown) (no date) (unknown) (unknown) Hct 46.6 (units unknown) (unknown) (unknown) (no date) (unknown) (unknown) Hct (units unknown) (unknown) (unknown) (no date) (unknown) (unknown) Hgb 15.4 (units unknown) (unknown) (unknown) (no date) (unknown) (unknown) Hgb (units unknown) (unknown) (unknown) (no date) (unknown) (unknown) History + Physical Report (units unknown) (unknown) (unknown) (no date) (unknown) (unknown) History of Present Illness (units unknown) (unknown) (unknown) (no date) (unknown) (unknown) History of melanoma (units unknown) (unknown) (unknown) (no date) (unknown) (unknown) History of permanent cardiac pacemaker placement (units unknown) (unknown) (unknown) (no date) (unknown) (unknown) Home Medications and Allergies (units unknown) (unknown) (unknown) (no date) (unknown) (unknown) Home Medications (units unknown) (unknown) (unknown) (no date) (unknown) (unknown) I spent a total of [] minutes of critical care time on this patient's care (units unknown) (unknown) (unknown) (no date) (unknown) (unknown) INR 1.5 H (units unknown) (unknown) (unknown) (no date) (unknown) (unknown) INR (units unknown) (unknown) (unknown) (no date) (unknown) (unknown) Influenza A (RT-PCR) Flu a negative (units unknown) (unknown) (unknown) (no date) (unknown) (unknown) Influenza A (RT-PCR) (units unknown) (unknown) (unknown) (no date) (unknown) (unknown) Influenza B (RT-PCR) Flu b negative (units unknown) (unknown) (unknown) (no date) (unknown) (unknown) Influenza B (RT-PCR) (units unknown) (unknown) (unknown) (no date) (unknown) (unknown) [address] [address] (units unknown) (unknown) (unknown) (no date) (unknown) (unknown) Laboratory Results - last 24 hr (units unknown) (unknown) (unknown) (no date) (unknown) (unknown) Labs (units unknown) (unknown) (unknown) (no date) (unknown) (unknown) Labs: (units unknown) (unknown) (unknown) (no date) (unknown) (unknown) Lactate 2.7 H (units unknown) (unknown) (unknown) (no date) (unknown) (unknown) Lactate 4.3 H* (units unknown) (unknown) (unknown) (no date) (unknown) (unknown) Lactate (units unknown) (unknown) (unknown) (no date) (unknown) (unknown) Lipase 45 (units unknown) (unknown) (unknown) (no date) (unknown) (unknown) Lipase (units unknown) (unknown) (unknown) (no date) (unknown) (unknown) Lungs: Auscultation of all lung troy are clear without adventitious sounds, (units unknown) (unknown) (unknown) (no date) (unknown) (unknown) Lymph # (Auto) 400 L (units unknown) (unknown) (unknown) (no date) (unknown) (unknown) Lymph # (Auto) (units unknown) (unknown) (unknown) (no date) (unknown) (unknown) Lymph % (Auto) 4.6 L (units unknown) (unknown) (unknown) (no date) (unknown) (unknown) Lymph % (Auto) (units unknown) (unknown) (unknown) (no date) (unknown) (unknown) MCH 30.4 (units unknown) (unknown) (unknown) (no date) (unknown) (unknown) MCH (units unknown) (unknown) (unknown) (no date) (unknown) (unknown) MCHC 33.0 (units unknown) (unknown) (unknown) (no date) (unknown) (unknown) MCHC (units unknown) (unknown) (unknown) (no date) (unknown) (unknown) MCV 92.4 (units unknown) (unknown) (unknown) (no date) (unknown) (unknown) MCV (units unknown) (unknown) (unknown) (no date) (unknown) (unknown) Magnesium 2.6 H (units unknown) (unknown) (unknown) (no date) (unknown) (unknown) Magnesium (units unknown) (unknown) (unknown) (no date) (unknown) (unknown) Medical History (Updated 06/16/22 @ 21:27 by Hawa Michael [facility]) (units unknown) (unknown) (unknown) (no date) (unknown) (unknown) Medication Instructions Recorded Confirmed Type (units unknown) (unknown) (unknown) (no date) (unknown) (unknown) Meds (units unknown) (unknown) (unknown) (no date) (unknown) (unknown) [place] # (Auto) 900 (units unknown) (unknown) (unknown) (no date) (unknown) (unknown) [place] # (Auto) (units unknown) (unknown) (unknown) (no date) (unknown) (unknown) [place] % (Auto) 9.4 (units unknown) (unknown) (unknown) (no date) (unknown) (unknown) [place] % (Auto) (units unknown) (unknown) (unknown) (no date) (unknown) (unknown) Musculoskeletal: Muscle strength and tone are equal within normal limits, no (units unknown) (unknown) (unknown) (no date) (unknown) (unknown) NT-Pro-B Natriuret Pep 1430 H (units unknown) (unknown) (unknown) (no date) (unknown) (unknown) NT-Pro-B Natriuret Pep (units unknown) (unknown) (unknown) (no date) (unknown) (unknown) Narrative (units unknown) (unknown) (unknown) (no date) (unknown) (unknown) Narrative: (units unknown) (unknown) (unknown) (no date) (unknown) (unknown) Negative for JVD (units unknown) (unknown) (unknown) (no date) (unknown) (unknown) Neuro: Alert and orientated x3, strength is +5/5 in all extremities, sensation (units unknown) (unknown) (unknown) (no date) (unknown) (unknown) Neut # (Auto) 8200 H (units unknown) (unknown) (unknown) (no date) (unknown) (unknown) Neut # (Auto) (units unknown) (unknown) (unknown) (no date) (unknown) (unknown) Neut % (Auto) 85.1 H (units unknown) (unknown) (unknown) (no date) (unknown) (unknown) Neut % (Auto) (units unknown) (unknown) (unknown) (no date) (unknown) (unknown) No Known Home Medications 12/20/20 12/20/20 History (units unknown) (unknown) (unknown) (no date) (unknown) (unknown) Objective (units unknown) (unknown) (unknown) (no date) (unknown) (unknown) On admit patient denies chest pain, shortness in breath, headache, changes in (units unknown) (unknown) (unknown) (no date) (unknown) (unknown) Oxygen Delivery Method Room Air (units unknown) (unknown) (unknown) (no date) (unknown) (unknown) Oxygen Delivery Method (units unknown) (unknown) (unknown) (no date) (unknown) (unknown) PT 17.6 H (units unknown) (unknown) (unknown) (no date) (unknown) (unknown) PT (units unknown) (unknown) (unknown) (no date) (unknown) (unknown) Pacemaker (units unknown) (unknown) (unknown) (no date) (unknown) (unknown) Patient History (units unknown) (unknown) (unknown) (no date) (unknown) (unknown) Patient: Yoseph Cardoso MR#: [id number] (units unknown) (unknown) (unknown) (no date) (unknown) (unknown) Phosphorus 4.1 H (units unknown) (unknown) (unknown) (no date) (unknown) (unknown) Phosphorus (units unknown) (unknown) (unknown) (no date) (unknown) (unknown) Plt Count 222 (units unknown) (unknown) (unknown) (no date) (unknown) (unknown) Plt Count (units unknown) (unknown) (unknown) (no date) (unknown) (unknown) Potassium 4.8 (units unknown) (unknown) (unknown) (no date) (unknown) (unknown) Potassium (units unknown) (unknown) (unknown) (no date) (unknown) (unknown) Procalcitonin 3.27 H (units unknown) (unknown) (unknown) (no date) (unknown) (unknown) Procalcitonin (units unknown) (unknown) (unknown) (no date) (unknown) (unknown) Provider: Hawa Michael (units unknown) (unknown) (unknown) (no date) (unknown) (unknown) Psych: Patient has a well-kept appearance, appropriate affect, mental status (units unknown) (unknown) (unknown) (no date) (unknown) (unknown) Pulse Oximetry 93 100 (units unknown) (unknown) (unknown) (no date) (unknown) (unknown) Pulse Oximetry 94 96 (units unknown) (unknown) (unknown) (no date) (unknown) (unknown) Pulse Oximetry 95 (units unknown) (unknown) (unknown) (no date) (unknown) (unknown) Pulse Oximetry 96 91 (units unknown) (unknown) (unknown) (no date) (unknown) (unknown) Pulse Oximetry 96 99 (units unknown) (unknown) (unknown) (no date) (unknown) (unknown) Pulse Oximetry 96 (units unknown) (unknown) (unknown) (no date) (unknown) (unknown) Pulse Oximetry 97 96 97 (units unknown) (unknown) (unknown) (no date) (unknown) (unknown) Pulse Oximetry 97 97 98 (units unknown) (unknown) (unknown) (no date) (unknown) (unknown) Pulse Oximetry 97 97 (units unknown) (unknown) (unknown) (no date) (unknown) (unknown) Pulse Oximetry 97 (units unknown) (unknown) (unknown) (no date) (unknown) (unknown) Pulse Oximetry 98 97 (units unknown) (unknown) (unknown) (no date) (unknown) (unknown) Pulse Oximetry 98 (units unknown) (unknown) (unknown) (no date) (unknown) (unknown) Pulse Oximetry (units unknown) (unknown) (unknown) (no date) (unknown) (unknown) Pulse Rate 111 H (units unknown) (unknown) (unknown) (no date) (unknown) (unknown) Pulse Rate 114 H 118 H (units unknown) (unknown) (unknown) (no date) (unknown) (unknown) Pulse Rate 154 H (units unknown) (unknown) (unknown) (no date) (unknown) (unknown) Pulse Rate 72 66 (units unknown) (unknown) (unknown) (no date) (unknown) (unknown) Pulse Rate 72 71 (units unknown) (unknown) (unknown) (no date) (unknown) (unknown) Pulse Rate 72 74 (units unknown) (unknown) (unknown) (no date) (unknown) (unknown) Pulse Rate 72 (units unknown) (unknown) (unknown) (no date) (unknown) (unknown) Pulse Rate 73 74 (units unknown) (unknown) (unknown) (no date) (unknown) (unknown) Pulse Rate 73 87 98 H (units unknown) (unknown) (unknown) (no date) (unknown) (unknown) Pulse Rate 73 (units unknown) (unknown) (unknown) (no date) (unknown) (unknown) Pulse Rate 74 104 H 106 H (units unknown) (unknown) (unknown) (no date) (unknown) (unknown) Pulse Rate 75 116 H (units unknown) (unknown) (unknown) (no date) (unknown) (unknown) Pulse Rate 75 70 (units unknown) (unknown) (unknown) (no date) (unknown) (unknown) Pulse Rate 75 74 74 (units unknown) (unknown) (unknown) (no date) (unknown) (unknown) Pulse Rate 75 (units unknown) (unknown) (unknown) (no date) (unknown) (unknown) Pulse Rate 76 (units unknown) (unknown) (unknown) (no date) (unknown) (unknown) Pulse Rate 78 75 (units unknown) (unknown) (unknown) (no date) (unknown) (unknown) Pulse Rate 84 77 (units unknown) (unknown) (unknown) (no date) (unknown) (unknown) Pulse Rate 86 72 (units unknown) (unknown) (unknown) (no date) (unknown) (unknown) Pulse Rate 98 H (units unknown) (unknown) (unknown) (no date) (unknown) (unknown) RBC 5.05 (units unknown) (unknown) (unknown) (no date) (unknown) (unknown) RBC (units unknown) (unknown) (unknown) (no date) (unknown) (unknown) RDW 14.4 (units unknown) (unknown) (unknown) (no date) (unknown) (unknown) RDW (units unknown) (unknown) (unknown) (no date) (unknown) (unknown) RSV (PCR) Negative (units unknown) (unknown) (unknown) (no date) (unknown) (unknown) RSV (PCR) (units unknown) (unknown) (unknown) (no date) (unknown) (unknown) Respiratory Rate 12 25 H (units unknown) (unknown) (unknown) (no date) (unknown) (unknown) Respiratory Rate 13 26 H (units unknown) (unknown) (unknown) (no date) (unknown) (unknown) Respiratory Rate 16 20 (units unknown) (unknown) (unknown) (no date) (unknown) (unknown) Respiratory Rate 17 26 H (units unknown) (unknown) (unknown) (no date) (unknown) (unknown) Respiratory Rate 17 (units unknown) (unknown) (unknown) (no date) (unknown) (unknown) Respiratory Rate 18 32 H (units unknown) (unknown) (unknown) (no date) (unknown) (unknown) Respiratory Rate 18 (units unknown) (unknown) (unknown) (no date) (unknown) (unknown) Respiratory Rate 19 18 (units unknown) (unknown) (unknown) (no date) (unknown) (unknown) Respiratory Rate 19 34 H 39 H (units unknown) (unknown) (unknown) (no date) (unknown) (unknown) Respiratory Rate 19 (units unknown) (unknown) (unknown) (no date) (unknown) (unknown) Respiratory Rate 20 (units unknown) (unknown) (unknown) (no date) (unknown) (unknown) Respiratory Rate 22 20 (units unknown) (unknown) (unknown) (no date) (unknown) (unknown) Respiratory Rate 23 17 16 (units unknown) (unknown) (unknown) (no date) (unknown) (unknown) Respiratory Rate 23 18 (units unknown) (unknown) (unknown) (no date) (unknown) (unknown) Respiratory Rate 24 19 (units unknown) (unknown) (unknown) (no date) (unknown) (unknown) Respiratory Rate 24 23 (units unknown) (unknown) (unknown) (no date) (unknown) (unknown) Respiratory Rate 27 H (units unknown) (unknown) (unknown) (no date) (unknown) (unknown) Respiratory Rate 29 H (units unknown) (unknown) (unknown) (no date) (unknown) (unknown) Respiratory Rate 30 H 24 (units unknown) (unknown) (unknown) (no date) (unknown) (unknown) Respiratory Rate (units unknown) (unknown) (unknown) (no date) (unknown) (unknown) Review of Systems (units unknown) (unknown) (unknown) (no date) (unknown) (unknown) SARS-CoV-2 (PCR) Negative (units unknown) (unknown) (unknown) (no date) (unknown) (unknown) SARS-CoV-2 (PCR) (units unknown) (unknown) (unknown) (no date) (unknown) (unknown) Safety + Behavioral: (units unknown) (unknown) (unknown) (no date) (unknown) (unknown) Signed By: (units unknown) (unknown) (unknown) (no date) (unknown) (unknown) Skin: Warm dry and intact without rashes, ulcerations or petechiae. (units unknown) (unknown) (unknown) (no date) (unknown) (unknown) Smoking Status Smoker, status unknown (units unknown) (unknown) (unknown) (no date) (unknown) (unknown) Sodium 135 L (units unknown) (unknown) (unknown) (no date) (unknown) (unknown) Sodium (units unknown) (unknown) (unknown) (no date) (unknown) (unknown) Substance Use Type does not use (units unknown) (unknown) (unknown) (no date) (unknown) (unknown) Surgical History (Updated 06/16/22 @ 21:27 by KASSI CrystalPJames) (units unknown) (unknown) (unknown) (no date) (unknown) (unknown) Temperature 98.1 F (units unknown) (unknown) (unknown) (no date) (unknown) (unknown) Temperature (units unknown) (unknown) (unknown) (no date) (unknown) (unknown) Time Patient Seen: 15:35 (units unknown) (unknown) (unknown) (no date) (unknown) (unknown) Time Spent With Patient (units unknown) (unknown) (unknown) (no date) (unknown) (unknown) Tobacco + Substance use: (units unknown) (unknown) (unknown) (no date) (unknown) (unknown) Total Bilirubin 2.1 H (units unknown) (unknown) (unknown) (no date) (unknown) (unknown) Total Bilirubin (units unknown) (unknown) (unknown) (no date) (unknown) (unknown) Total Creatine Kinase 53 L (units unknown) (unknown) (unknown) (no date) (unknown) (unknown) Total Creatine Kinase (units unknown) (unknown) (unknown) (no date) (unknown) (unknown) Total Protein 5.8 L (units unknown) (unknown) (unknown) (no date) (unknown) (unknown) Total Protein (units unknown) (unknown) (unknown) (no date) (unknown) (unknown) Troponin I < 0.012 (units unknown) (unknown) (unknown) (no date) (unknown) (unknown) Troponin I (units unknown) (unknown) (unknown) (no date) (unknown) (unknown) Upon admit BP 149/78, tachycardic heart rate 154, tachypneic R 29, O2 saturation (units unknown) (unknown) (unknown) (no date) (unknown) (unknown) Ur Bilirubin Confirm Positive H (units unknown) (unknown) (unknown) (no date) (unknown) (unknown) Ur Bilirubin Confirm (units unknown) (unknown) (unknown) (no date) (unknown) (unknown) Ur Culture Indicated? Specimen cultured (units unknown) (unknown) (unknown) (no date) (unknown) (unknown) Ur Culture Indicated? (units unknown) (unknown) (unknown) (no date) (unknown) (unknown) Ur Leukocyte Esterase Trace H (units unknown) (unknown) (unknown) (no date) (unknown) (unknown) Ur Leukocyte Esterase (units unknown) (unknown) (unknown) (no date) (unknown) (unknown) Ur Specific [place] 1.020 (units unknown) (unknown) (unknown) (no date) (unknown) (unknown) Ur Specific [place] (units unknown) (unknown) (unknown) (no date) (unknown) (unknown) Ur Squamous Epith Cells 1-5 /hpf (units unknown) (unknown) (unknown) (no date) (unknown) (unknown) Ur Squamous Epith Cells (units unknown) (unknown) (unknown) (no date) (unknown) (unknown) Urine Appearance Cloudy (units unknown) (unknown) (unknown) (no date) (unknown) (unknown) Urine Appearance (units unknown) (unknown) (unknown) (no date) (unknown) (unknown) Urine Bacteria None seen (units unknown) (unknown) (unknown) (no date) (unknown) (unknown) Urine Bacteria (units unknown) (unknown) (unknown) (no date) (unknown) (unknown) Urine Bilirubin 3+ H (units unknown) (unknown) (unknown) (no date) (unknown) (unknown) Urine Bilirubin (units unknown) (unknown) (unknown) (no date) (unknown) (unknown) Urine Color Brown (units unknown) (unknown) (unknown) (no date) (unknown) (unknown) Urine Color (units unknown) (unknown) (unknown) (no date) (unknown) (unknown) Urine Glucose (UA) Negative (units unknown) (unknown) (unknown) (no date) (unknown) (unknown) Urine Glucose (UA) (units unknown) (unknown) (unknown) (no date) (unknown) (unknown) Urine Ketones 1+ H (units unknown) (unknown) (unknown) (no date) (unknown) (unknown) Urine Ketones (units unknown) (unknown) (unknown) (no date) (unknown) (unknown) Urine Nitrate Positive H (units unknown) (unknown) (unknown) (no date) (unknown) (unknown) Urine Nitrate (units unknown) (unknown) (unknown) (no date) (unknown) (unknown) Urine Occult Blood Trace-intact (units unknown) (unknown) (unknown) (no date) (unknown) (unknown) Urine Occult Blood (units unknown) (unknown) (unknown) (no date) (unknown) (unknown) Urine Protein 1+ H (units unknown) (unknown) (unknown) (no date) (unknown) (unknown) Urine Protein (units unknown) (unknown) (unknown) (no date) (unknown) (unknown) Urine RBC 10-30/hpf H (units unknown) (unknown) (unknown) (no date) (unknown) (unknown) Urine RBC (units unknown) (unknown) (unknown) (no date) (unknown) (unknown) Urine Urobilinogen 1.0 (units unknown) (unknown) (unknown) (no date) (unknown) (unknown) Urine Urobilinogen (units unknown) (unknown) (unknown) (no date) (unknown) (unknown) Urine WBC 1-5/hpf (units unknown) (unknown) (unknown) (no date) (unknown) (unknown) Urine WBC (units unknown) (unknown) (unknown) (no date) (unknown) (unknown) Urine pH 6.5 (units unknown) (unknown) (unknown) (no date) (unknown) (unknown) Urine pH (units unknown) (unknown) (unknown) (no date) (unknown) (unknown) Vital Signs (units unknown) (unknown) (unknown) (no date) (unknown) (unknown) WBC 9.6 (units unknown) (unknown) (unknown) (no date) (unknown) (unknown) WBC (units unknown) (unknown) (unknown) (no date) (unknown) (unknown) [Embedded Image Not Available] (units unknown) (unknown) (unknown) (no date) (unknown) (unknown) [From Prevnar] and feet x (units unknown) (unknown) (unknown) (no date) (unknown) (unknown) abnormal. COVID, influenza a/B/RSV negative. Head CT negative. CXR ?Possible (units unknown) (unknown) (unknown) (no date) (unknown) (unknown) after. (units unknown) (unknown) (unknown) (no date) (unknown) (unknown) alcohol intake frequency a few times a month (units unknown) (unknown) (unknown) (no date) (unknown) (unknown) are present in all 4 quadrants without guarding or rebound, no CVA tenderness. (units unknown) (unknown) (unknown) (no date) (unknown) (unknown) attitude thought context and judgment are appropriate for age. (units unknown) (unknown) (unknown) (no date) (unknown) (unknown) clear and mucous membranes are moist. 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 Full range (units unknown) (unknown) (unknown) (no date) (unknown) (unknown) documented. (units unknown) (unknown) (unknown) (no date) (unknown) (unknown) due to his significant presentation of cachexia, weakness, malaise balance (units unknown) (unknown) (unknown) (no date) (unknown) (unknown) dysuria, frequency, urgency, hematuria, bowel changes, constipation, (units unknown) (unknown) (unknown) (no date) (unknown) (unknown) falls, head injury, LOC, fever, body aches, chills, cough, recent exposure to (units unknown) (unknown) (unknown) (no date) (unknown) (unknown) greater than left pulmonary effusion. SOFA:2 patient admitted for mild sepsis, (units unknown) (unknown) (unknown) (no date) (unknown) (unknown) illness, abdominal pain, nausea, vomiting, urinary incontinence/retent ion, (units unknown) (unknown) (unknown) (no date) (unknown) (unknown) incontinence, melena, rashes, recent changes to medication, illness, injury, or (units unknown) (unknown) (unknown) (no date) (unknown) (unknown) infiltrates versus inflammatory pulmonary opacities mild to moderate right (units unknown) (unknown) (unknown) (no date) (unknown) (unknown) into the ED by his . Patient demonstrated escalating tachycardia with heart (units unknown) (unknown) (unknown) (no date) (unknown) (unknown) midline, no adenopathy, no thyroid enlargement, nontender, no masses palpated. (units unknown) (unknown) (unknown) (no date) (unknown) (unknown) mild right and retrocardiac opacities Chest CT demonstrated bibasilar (units unknown) (unknown) (unknown) (no date) (unknown) (unknown) negative, BNP 1430. EKG atrial sensed ventricular paced rhythm rate 72, (units unknown) (unknown) (unknown) (no date) (unknown) (unknown) no carotid bruit, no cardiac pulsations present. (units unknown) (unknown) (unknown) (no date) (unknown) (unknown) of motion intact radial and pedal pulses are normal. 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 Gillette cardiology's office (units unknown) (unknown) (unknown) (no date) (unknown) (unknown) pneumococcal 7-valent AdvReac Intermediate swelling Verified 06/16/22 12:46 (units unknown) (unknown) (unknown) (no date) (unknown) (unknown) rates 111-154, and tachypneic respiratory rate in the 20s. (units unknown) (unknown) (unknown) (no date) (unknown) (unknown) retractions, or tachypneic labored (units unknown) (unknown) (unknown) (no date) (unknown) (unknown) time. (units unknown) (unknown) (unknown) (no date) (unknown) (unknown) to touch intact, no gross deficits noted of cranial nerves. (units unknown) (unknown) (unknown) (no date) (unknown) (unknown) today; this time is exclusive of procedural time. (units unknown) (unknown) (unknown) (no date) (unknown) (unknown) transaminitis, UTI, elevated phosphorus. (units unknown) (unknown) (unknown) (no date) (unknown) (unknown) trauma. (units unknown) (unknown) (unknown) (no date) (unknown) (unknown) vision, difficulty swallowing, speech impairment, numbness, tingling, recent (units unknown) (unknown) (unknown) (no date) (unknown) (unknown) weight loss, and night sweats with a shuffling gait x6 weeks. He was brought (units unknown) (unknown) (unknown) (no date) (unknown) (unknown) wheezes, rhonchi, or rales. (units unknown) (unknown) Result panel 209 (unknown) (no date) (unknown) (unknown) (no value) (units unknown) 34399-4 (unknown) (no date) (unknown) (unknown) (no value) (units unknown) (unknown) (unknown) (no date) (unknown) (unknown) 1.8 ng/ml 21787-8 (unknown) (no date) (unknown) (unknown) 1.8 ng/ml (unknown) (unknown) (no date) (unknown) (unknown) Negative (units unknown) (unknown) (unknown) (no date) (unknown) (unknown) Negative (units unknown) 19803-9 (unknown) (no date) (unknown) (unknown) Negative (units unknown) 48641-0 (unknown) (no date) (unknown) (unknown) Negative (units unknown) 5196-1 (unknown) (no date) (unknown) (unknown) Non Reactive (units unknown) (unknown) (unknown) (no date) (unknown) (unknown) Non Reactive (units unknown) 83354-2 Result panel 210 (unknown) (no date) (unknown) (unknown) 5.8 % (unknown) (unknown) (no date) (unknown) (unknown) 5.8 % (unknown) Result panel 211 (unknown) (no date) (unknown) (unknown) 59 u/l (unknown) Result panel 212 (unknown) (no date) (unknown) (unknown) 0.013 ng/ml (unknown) (unknown) (no date) (unknown) (unknown) 0.013 ng/ml (unknown) (unknown) (no date) (unknown) (unknown) 516 u/l (unknown) Result panel 213 (unknown) (no date) (unknown) (unknown) (no value) (units unknown) (unknown) (unknown) (no date) (unknown) (unknown) (Flovent HFA) (units unknown) (unknown) (unknown) (no date) (unknown) (unknown) (past 8 hours): (units unknown) (unknown) (unknown) (no date) (unknown) (unknown) [id number] (units unknown) (unknown) (unknown) (no date) (unknown) (unknown) 06/16/22 06/16/22 06/16/22 (units unknown) (unknown) (unknown) (no date) (unknown) (unknown) 06/16/22 06/16/22 (units unknown) (unknown) (unknown) (no date) (unknown) (unknown) 06/16/22 12:35 (units unknown) (unknown) (unknown) (no date) (unknown) (unknown) 06/16/22 (units unknown) (unknown) (unknown) (no date) (unknown) (unknown) 12:35 12:35 12:35 (units unknown) (unknown) (unknown) (no date) (unknown) (unknown) 13:15 06/16/22 (units unknown) (unknown) (unknown) (no date) (unknown) (unknown) 13:30 (units unknown) (unknown) (unknown) (no date) (unknown) (unknown) 13:45 06/16/22 (units unknown) (unknown) (unknown) (no date) (unknown) (unknown) 13:46 06/16/22 (units unknown) (unknown) (unknown) (no date) (unknown) (unknown) 13:46 (units unknown) (unknown) (unknown) (no date) (unknown) (unknown) 14:00 06/16/22 (units unknown) (unknown) (unknown) (no date) (unknown) (unknown) 14:24 (units unknown) (unknown) (unknown) (no date) (unknown) (unknown) 14:30 06/16/22 (units unknown) (unknown) (unknown) (no date) (unknown) (unknown) 14:45 06/16/22 (units unknown) (unknown) (unknown) (no date) (unknown) (unknown) 15:00 (units unknown) (unknown) (unknown) (no date) (unknown) (unknown) 15:15 06/16/22 (units unknown) (unknown) (unknown) (no date) (unknown) (unknown) 15:30 06/16/22 (units unknown) (unknown) (unknown) (no date) (unknown) (unknown) 15:30 17:55 (units unknown) (unknown) (unknown) (no date) (unknown) (unknown) 15:34 06/16/22 (units unknown) (unknown) (unknown) (no date) (unknown) (unknown) 15:34 (units unknown) (unknown) (unknown) (no date) (unknown) (unknown) 15:45 06/16/22 (units unknown) (unknown) (unknown) (no date) (unknown) (unknown) 15:45 (units unknown) (unknown) (unknown) (no date) (unknown) (unknown) 16:00 06/16/22 (units unknown) (unknown) (unknown) (no date) (unknown) (unknown) 16:15 06/16/22 (units unknown) (unknown) (unknown) (no date) (unknown) (unknown) 16:15 (units unknown) (unknown) (unknown) (no date) (unknown) (unknown) 16:30 06/16/22 (units unknown) (unknown) (unknown) (no date) (unknown) (unknown) 16:31 06/16/22 (units unknown) (unknown) (unknown) (no date) (unknown) (unknown) 16:31 (units unknown) (unknown) (unknown) (no date) (unknown) (unknown) 16:45 06/16/22 (units unknown) (unknown) (unknown) (no date) (unknown) (unknown) 17:00 06/16/22 (units unknown) (unknown) (unknown) (no date) (unknown) (unknown) 17:00 (units unknown) (unknown) (unknown) (no date) (unknown) (unknown) 17:15 06/16/22 (units unknown) (unknown) (unknown) (no date) (unknown) (unknown) 17:15 (units unknown) (unknown) (unknown) (no date) (unknown) (unknown) 17:30 06/16/22 (units unknown) (unknown) (unknown) (no date) (unknown) (unknown) 17:45 (units unknown) (unknown) (unknown) (no date) (unknown) (unknown) 17:46 06/16/22 (units unknown) (unknown) (unknown) (no date) (unknown) (unknown) 17:59 (units unknown) (unknown) (unknown) (no date) (unknown) (unknown) 18:00 06/16/22 (units unknown) (unknown) (unknown) (no date) (unknown) (unknown) 18:01 06/16/22 (units unknown) (unknown) (unknown) (no date) (unknown) (unknown) 18:15 06/16/22 (units unknown) (unknown) (unknown) (no date) (unknown) (unknown) 18:15 (units unknown) (unknown) (unknown) (no date) (unknown) (unknown) 18:30 06/16/22 (units unknown) (unknown) (unknown) (no date) (unknown) (unknown) 18:30 (units unknown) (unknown) (unknown) (no date) (unknown) (unknown) 18:45 06/16/22 (units unknown) (unknown) (unknown) (no date) (unknown) (unknown) 19:00 06/16/22 (units unknown) (unknown) (unknown) (no date) (unknown) (unknown) 19:00 (units unknown) (unknown) (unknown) (no date) (unknown) (unknown) 19:15 06/16/22 (units unknown) (unknown) (unknown) (no date) (unknown) (unknown) 19:15 (units unknown) (unknown) (unknown) (no date) (unknown) (unknown) 19:30 06/16/22 (units unknown) (unknown) (unknown) (no date) (unknown) (unknown) 19:45 06/16/22 (units unknown) (unknown) (unknown) (no date) (unknown) (unknown) 19:45 (units unknown) (unknown) (unknown) (no date) (unknown) (unknown) 20:00 06/16/22 (units unknown) (unknown) (unknown) (no date) (unknown) (unknown) 20:00 (units unknown) (unknown) (unknown) (no date) (unknown) (unknown) 20:15 06/16/22 (units unknown) (unknown) (unknown) (no date) (unknown) (unknown) 20:30 06/16/22 (units unknown) (unknown) (unknown) (no date) (unknown) (unknown) 20:30 (units unknown) (unknown) (unknown) (no date) (unknown) (unknown) 20:45 06/16/22 (units unknown) (unknown) (unknown) (no date) (unknown) (unknown) 20:46 06/16/22 (units unknown) (unknown) (unknown) (no date) (unknown) (unknown) 20:46 (units unknown) (unknown) (unknown) (no date) (unknown) (unknown) 20:55 (units unknown) (unknown) (unknown) (no date) (unknown) (unknown) 34, glucose 146, calcium 8.1, magnesium 2.6, phosphorus 4.1, bili 2.1, AST 61, (units unknown) (unknown) (unknown) (no date) (unknown) (unknown) 4 mos (units unknown) (unknown) (unknown) (no date) (unknown) (unknown) 4.3, repeat 2.7, procalcitonin 3.27, PT 17.6, INR 1.5, PTT 38. Sodium 135, BUN (units unknown) (unknown) (unknown) (no date) (unknown) (unknown) 98% on room air. Patient has no WBC, but left shiftneut 8200, initial lactate (units unknown) (unknown) (unknown) (no date) (unknown) (unknown) ALT 63 H (units unknown) (unknown) (unknown) (no date) (unknown) (unknown) ALT 63, alk-phos 428, total protein 5.8, albumin 3.1, CK 53, initial troponin (units unknown) (unknown) (unknown) (no date) (unknown) (unknown) ALT (units unknown) (unknown) (unknown) (no date) (unknown) (unknown) APTT 38 H (units unknown) (unknown) (unknown) (no date) (unknown) (unknown) APTT (units unknown) (unknown) (unknown) (no date) (unknown) (unknown) AST 61 H (units unknown) (unknown) (unknown) (no date) (unknown) (unknown) AST (units unknown) (unknown) (unknown) (no date) (unknown) (unknown) Abdomen: Soft nontender, negative for organomegaly, or masses. Bowel sounds (units unknown) (unknown) (unknown) (no date) (unknown) (unknown) Age/Sex: 86 / M (units unknown) (unknown) (unknown) (no date) (unknown) (unknown) Albumin 3.1 L (units unknown) (unknown) (unknown) (no date) (unknown) (unknown) Albumin (units unknown) (unknown) (unknown) (no date) (unknown) (unknown) Albumin/Globulin Ratio 1.1 (units unknown) (unknown) (unknown) (no date) (unknown) (unknown) Albumin/Globulin Ratio (units unknown) (unknown) (unknown) (no date) (unknown) (unknown) Alkaline Phosphatase 428 H (units unknown) (unknown) (unknown) (no date) (unknown) (unknown) Alkaline Phosphatase (units unknown) (unknown) (unknown) (no date) (unknown) (unknown) All 12 point systems reviewed with the patient and are negative except otherwise (units unknown) (unknown) (unknown) (no date) (unknown) (unknown) Allergies (units unknown) (unknown) (unknown) (no date) (unknown) (unknown) Allergy/AdvReac Type Severity Reaction Status Date / Time (units unknown) (unknown) (unknown) (no date) (unknown) (unknown) Assessment + Plan narrative: (units unknown) (unknown) (unknown) (no date) (unknown) (unknown) Assessment + Plan (units unknown) (unknown) (unknown) (no date) (unknown) (unknown) Atrial fibrillation (units unknown) (unknown) (unknown) (no date) (unknown) (unknown) BUN 34 H (units unknown) (unknown) (unknown) (no date) (unknown) (unknown) BUN (units unknown) (unknown) (unknown) (no date) (unknown) (unknown) BUN/Creatinine Ratio 34.3 H (units unknown) (unknown) (unknown) (no date) (unknown) (unknown) BUN/Creatinine Ratio (units unknown) (unknown) (unknown) (no date) (unknown) (unknown) Baso # (Auto) 100 (units unknown) (unknown) (unknown) (no date) (unknown) (unknown) Baso # (Auto) (units unknown) (unknown) (unknown) (no date) (unknown) (unknown) Baso % (Auto) 0.8 (units unknown) (unknown) (unknown) (no date) (unknown) (unknown) Baso % (Auto) (units unknown) (unknown) (unknown) (no date) (unknown) (unknown) Blood Pressure 141/57 H (units unknown) (unknown) (unknown) (no date) (unknown) (unknown) Blood Pressure 141/73 H (units unknown) (unknown) (unknown) (no date) (unknown) (unknown) Blood Pressure 142/65 H 156/70 H (units unknown) (unknown) (unknown) (no date) (unknown) (unknown) Blood Pressure 142/67 H (units unknown) (unknown) (unknown) (no date) (unknown) (unknown) Blood Pressure 143/67 H (units unknown) (unknown) (unknown) (no date) (unknown) (unknown) Blood Pressure 145/69 H (units unknown) (unknown) (unknown) (no date) (unknown) (unknown) Blood Pressure 146/69 H (units unknown) (unknown) (unknown) (no date) (unknown) (unknown) Blood Pressure 147/71 H 150/72 H (units unknown) (unknown) (unknown) (no date) (unknown) (unknown) Blood Pressure 149/68 H 130/59 L (units unknown) (unknown) (unknown) (no date) (unknown) (unknown) Blood Pressure 149/78 H 155/70 H (units unknown) (unknown) (unknown) (no date) (unknown) (unknown) Blood Pressure 150/73 H (units unknown) (unknown) (unknown) (no date) (unknown) (unknown) Blood Pressure 151/72 H (units unknown) (unknown) (unknown) (no date) (unknown) (unknown) Blood Pressure 154/73 H (units unknown) (unknown) (unknown) (no date) (unknown) (unknown) Blood Pressure 156/72 H 151/72 H (units unknown) (unknown) (unknown) (no date) (unknown) (unknown) Blood Pressure 162/114 H (units unknown) (unknown) (unknown) (no date) (unknown) (unknown) Blood Pressure 164/94 H 164/96 H (units unknown) (unknown) (unknown) (no date) (unknown) (unknown) Blood Pressure 179/74 H 179/94 H (units unknown) (unknown) (unknown) (no date) (unknown) (unknown) Blood Pressure 186/112 H 169/75 H (units unknown) (unknown) (unknown) (no date) (unknown) (unknown) Blood Pressure (units unknown) (unknown) (unknown) (no date) (unknown) (unknown) CK-MB (CK-2) Rel Index TNP (units unknown) (unknown) (unknown) (no date) (unknown) (unknown) CK-MB (CK-2) Rel Index (units unknown) (unknown) (unknown) (no date) (unknown) (unknown) CK-MB (CK-2) TNP (units unknown) (unknown) (unknown) (no date) (unknown) (unknown) CK-MB (CK-2) (units unknown) (unknown) (unknown) (no date) (unknown) (unknown) Calcium 8.1 L (units unknown) (unknown) (unknown) (no date) (unknown) (unknown) Calcium (units unknown) (unknown) (unknown) (no date) (unknown) (unknown) Carbon Dioxide 28 (units unknown) (unknown) (unknown) (no date) (unknown) (unknown) Carbon Dioxide (units unknown) (unknown) (unknown) (no date) (unknown) (unknown) Cardio: S1 + S2 with regular rate and rhythm without murmur, rubs, or gallops, (units unknown) (unknown) (unknown) (no date) (unknown) (unknown) Chest: Normal AP diameter and contour without kyphoscoliosis, no nasal flaring, (units unknown) (unknown) (unknown) (no date) (unknown) (unknown) Chief complaint: Pain near pacemaker (units unknown) (unknown) (unknown) (no date) (unknown) (unknown) Chloride 99 (units unknown) (unknown) (unknown) (no date) (unknown) (unknown) Chloride (units unknown) (unknown) (unknown) (no date) (unknown) (unknown) Creatinine 0.99 (units unknown) (unknown) (unknown) (no date) (unknown) (unknown) Creatinine (units unknown) (unknown) (unknown) (no date) (unknown) (unknown) Critical Care time: (units unknown) (unknown) (unknown) (no date) (unknown) (unknown) : 1935 Acct:[id number] (units unknown) (unknown) (unknown) (no date) (unknown) (unknown) Date Patient Seen: 06/16/22 (units unknown) (unknown) (unknown) (no date) (unknown) (unknown) Date of Service: 06/16/22 (units unknown) (unknown) (unknown) (no date) (unknown) (unknown) Yoseph Cardoso is a 86-year-old male with a history of atrial fibrillation, with (units unknown) (unknown) (unknown) (no date) (unknown) (unknown) Environment (units unknown) (unknown) (unknown) (no date) (unknown) (unknown) Eos # (Auto) 0 (units unknown) (unknown) (unknown) (no date) (unknown) (unknown) Eos # (Auto) (units unknown) (unknown) (unknown) (no date) (unknown) (unknown) Eos % (Auto) 0.1 L (units unknown) (unknown) (unknown) (no date) (unknown) (unknown) Eos % (Auto) (units unknown) (unknown) (unknown) (no date) (unknown) (unknown) Estimated GFR > 60 (units unknown) (unknown) (unknown) (no date) (unknown) (unknown) Estimated GFR (units unknown) (unknown) (unknown) (no date) (unknown) (unknown) Exam Narrative: (units unknown) (unknown) (unknown) (no date) (unknown) (unknown) Exam (units unknown) (unknown) (unknown) (no date) (unknown) (unknown) Family + Social History (units unknown) (unknown) (unknown) (no date) (unknown) (unknown) Feels Safe in Current Yes (units unknown) (unknown) (unknown) (no date) (unknown) (unknown) Fever, jaundice, right upper quadrant pain? (units unknown) (unknown) (unknown) (no date) (unknown) (unknown) General: Patient is a well-developed, well-nourished in no distress at this (units unknown) (unknown) (unknown) (no date) (unknown) (unknown) Globulin 2.7 (units unknown) (unknown) (unknown) (no date) (unknown) (unknown) Globulin (units unknown) (unknown) (unknown) (no date) (unknown) (unknown) Glucose 146 H (units unknown) (unknown) (unknown) (no date) (unknown) (unknown) Glucose (units unknown) (unknown) (unknown) (no date) (unknown) (unknown) HEENT: Normocephalic, atraumatic, extraocular muscles intact, oral pharynx is (units unknown) (unknown) (unknown) (no date) (unknown) (unknown) Hct 46.6 (units unknown) (unknown) (unknown) (no date) (unknown) (unknown) Hct (units unknown) (unknown) (unknown) (no date) (unknown) (unknown) Hgb 15.4 (units unknown) (unknown) (unknown) (no date) (unknown) (unknown) Hgb (units unknown) (unknown) (unknown) (no date) (unknown) (unknown) History + Physical Report (units unknown) (unknown) (unknown) (no date) (unknown) (unknown) History of Present Illness (units unknown) (unknown) (unknown) (no date) (unknown) (unknown) History of melanoma (units unknown) (unknown) (unknown) (no date) (unknown) (unknown) History of permanent cardiac pacemaker placement (units unknown) (unknown) (unknown) (no date) (unknown) (unknown) History (units unknown) (unknown) (unknown) (no date) (unknown) (unknown) Home Medications and Allergies (units unknown) (unknown) (unknown) (no date) (unknown) (unknown) Home Medications (units unknown) (unknown) (unknown) (no date) (unknown) (unknown) I spent a total of [] minutes of critical care time on this patient's care (units unknown) (unknown) (unknown) (no date) (unknown) (unknown) INR 1.5 H (units unknown) (unknown) (unknown) (no date) (unknown) (unknown) INR (units unknown) (unknown) (unknown) (no date) (unknown) (unknown) Influenza A (RT-PCR) Flu a negative (units unknown) (unknown) (unknown) (no date) (unknown) (unknown) Influenza A (RT-PCR) (units unknown) (unknown) (unknown) (no date) (unknown) (unknown) Influenza B (RT-PCR) Flu b negative (units unknown) (unknown) (unknown) (no date) (unknown) (unknown) Influenza B (RT-PCR) (units unknown) (unknown) (unknown) (no date) (unknown) (unknown) [address] [address] (units unknown) (unknown) (unknown) (no date) (unknown) (unknown) Laboratory Results - last 24 hr (units unknown) (unknown) (unknown) (no date) (unknown) (unknown) Labs (units unknown) (unknown) (unknown) (no date) (unknown) (unknown) Labs: (units unknown) (unknown) (unknown) (no date) (unknown) (unknown) Lactate 2.7 H (units unknown) (unknown) (unknown) (no date) (unknown) (unknown) Lactate 4.3 H* (units unknown) (unknown) (unknown) (no date) (unknown) (unknown) Lactate (units unknown) (unknown) (unknown) (no date) (unknown) (unknown) Lipase 45 (units unknown) (unknown) (unknown) (no date) (unknown) (unknown) Lipase (units unknown) (unknown) (unknown) (no date) (unknown) (unknown) Lungs: Auscultation of all lung troy are clear without adventitious sounds, (units unknown) (unknown) (unknown) (no date) (unknown) (unknown) Lymph # (Auto) 400 L (units unknown) (unknown) (unknown) (no date) (unknown) (unknown) Lymph # (Auto) (units unknown) (unknown) (unknown) (no date) (unknown) (unknown) Lymph % (Auto) 4.6 L (units unknown) (unknown) (unknown) (no date) (unknown) (unknown) Lymph % (Auto) (units unknown) (unknown) (unknown) (no date) (unknown) (unknown) MCH 30.4 (units unknown) (unknown) (unknown) (no date) (unknown) (unknown) MCH (units unknown) (unknown) (unknown) (no date) (unknown) (unknown) MCHC 33.0 (units unknown) (unknown) (unknown) (no date) (unknown) (unknown) MCHC (units unknown) (unknown) (unknown) (no date) (unknown) (unknown) MCV 92.4 (units unknown) (unknown) (unknown) (no date) (unknown) (unknown) MCV (units unknown) (unknown) (unknown) (no date) (unknown) (unknown) Magnesium 2.6 H (units unknown) (unknown) (unknown) (no date) (unknown) (unknown) Magnesium (units unknown) (unknown) (unknown) (no date) (unknown) (unknown) Medical History (Updated 06/16/22 @ 22:05 by Fernando Naylor DO) (units unknown) (unknown) (unknown) (no date) (unknown) (unknown) Medication Instructions Recorded Confirmed Type (units unknown) (unknown) (unknown) (no date) (unknown) (unknown) Meds (units unknown) (unknown) (unknown) (no date) (unknown) (unknown) [place] # (Auto) 900 (units unknown) (unknown) (unknown) (no date) (unknown) (unknown) [place] # (Auto) (units unknown) (unknown) (unknown) (no date) (unknown) (unknown) [place] % (Auto) 9.4 (units unknown) (unknown) (unknown) (no date) (unknown) (unknown) [place] % (Auto) (units unknown) (unknown) (unknown) (no date) (unknown) (unknown) Musculoskeletal: Muscle strength and tone are equal within normal limits, no (units unknown) (unknown) (unknown) (no date) (unknown) (unknown) NT-Pro-B Natriuret Pep 1430 H (units unknown) (unknown) (unknown) (no date) (unknown) (unknown) NT-Pro-B Natriuret Pep (units unknown) (unknown) (unknown) (no date) (unknown) (unknown) Narrative (units unknown) (unknown) (unknown) (no date) (unknown) (unknown) Narrative: (units unknown) (unknown) (unknown) (no date) (unknown) (unknown) Negative for JVD (units unknown) (unknown) (unknown) (no date) (unknown) (unknown) Neuro: Alert and orientated x3, strength is +5/5 in all extremities, sensation (units unknown) (unknown) (unknown) (no date) (unknown) (unknown) Neut # (Auto) 8200 H (units unknown) (unknown) (unknown) (no date) (unknown) (unknown) Neut # (Auto) (units unknown) (unknown) (unknown) (no date) (unknown) (unknown) Neut % (Auto) 85.1 H (units unknown) (unknown) (unknown) (no date) (unknown) (unknown) Neut % (Auto) (units unknown) (unknown) (unknown) (no date) (unknown) (unknown) Objective (units unknown) (unknown) (unknown) (no date) (unknown) (unknown) On admit patient denies chest pain, shortness in breath, headache, changes in (units unknown) (unknown) (unknown) (no date) (unknown) (unknown) Oxygen Delivery Method Room Air (units unknown) (unknown) (unknown) (no date) (unknown) (unknown) Oxygen Delivery Method (units unknown) (unknown) (unknown) (no date) (unknown) (unknown) PT 17.6 H (units unknown) (unknown) (unknown) (no date) (unknown) (unknown) PT (units unknown) (unknown) (unknown) (no date) (unknown) (unknown) Pacemaker (units unknown) (unknown) (unknown) (no date) (unknown) (unknown) Patient History (units unknown) (unknown) (unknown) (no date) (unknown) (unknown) Patient: Yoseph Cardoso MR#: [id number] (units unknown) (unknown) (unknown) (no date) (unknown) (unknown) Phosphorus 4.1 H (units unknown) (unknown) (unknown) (no date) (unknown) (unknown) Phosphorus (units unknown) (unknown) (unknown) (no date) (unknown) (unknown) Plt Count 222 (units unknown) (unknown) (unknown) (no date) (unknown) (unknown) Plt Count (units unknown) (unknown) (unknown) (no date) (unknown) (unknown) Potassium 4.8 (units unknown) (unknown) (unknown) (no date) (unknown) (unknown) Potassium (units unknown) (unknown) (unknown) (no date) (unknown) (unknown) Procalcitonin 3.27 H (units unknown) (unknown) (unknown) (no date) (unknown) (unknown) Procalcitonin (units unknown) (unknown) (unknown) (no date) (unknown) (unknown) 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 (units unknown) (unknown) (unknown) (no date) (unknown) (unknown) Psych: Patient has a well-kept appearance, appropriate affect, mental status (units unknown) (unknown) (unknown) (no date) (unknown) (unknown) Pulse Oximetry 93 100 (units unknown) (unknown) (unknown) (no date) (unknown) (unknown) Pulse Oximetry 94 96 (units unknown) (unknown) (unknown) (no date) (unknown) (unknown) Pulse Oximetry 95 (units unknown) (unknown) (unknown) (no date) (unknown) (unknown) Pulse Oximetry 96 91 (units unknown) (unknown) (unknown) (no date) (unknown) (unknown) Pulse Oximetry 96 99 (units unknown) (unknown) (unknown) (no date) (unknown) (unknown) Pulse Oximetry 96 (units unknown) (unknown) (unknown) (no date) (unknown) (unknown) Pulse Oximetry 97 96 97 (units unknown) (unknown) (unknown) (no date) (unknown) (unknown) Pulse Oximetry 97 97 98 (units unknown) (unknown) (unknown) (no date) (unknown) (unknown) Pulse Oximetry 97 97 (units unknown) (unknown) (unknown) (no date) (unknown) (unknown) Pulse Oximetry 97 (units unknown) (unknown) (unknown) (no date) (unknown) (unknown) Pulse Oximetry 98 97 (units unknown) (unknown) (unknown) (no date) (unknown) (unknown) Pulse Oximetry 98 (units unknown) (unknown) (unknown) (no date) (unknown) (unknown) Pulse Oximetry (units unknown) (unknown) (unknown) (no date) (unknown) (unknown) Pulse Rate 111 H (units unknown) (unknown) (unknown) (no date) (unknown) (unknown) Pulse Rate 114 H 118 H (units unknown) (unknown) (unknown) (no date) (unknown) (unknown) Pulse Rate 154 H (units unknown) (unknown) (unknown) (no date) (unknown) (unknown) Pulse Rate 72 66 (units unknown) (unknown) (unknown) (no date) (unknown) (unknown) Pulse Rate 72 71 (units unknown) (unknown) (unknown) (no date) (unknown) (unknown) Pulse Rate 72 74 (units unknown) (unknown) (unknown) (no date) (unknown) (unknown) Pulse Rate 72 (units unknown) (unknown) (unknown) (no date) (unknown) (unknown) Pulse Rate 73 74 (units unknown) (unknown) (unknown) (no date) (unknown) (unknown) Pulse Rate 73 87 98 H (units unknown) (unknown) (unknown) (no date) (unknown) (unknown) Pulse Rate 73 (units unknown) (unknown) (unknown) (no date) (unknown) (unknown) Pulse Rate 74 104 H 106 H (units unknown) (unknown) (unknown) (no date) (unknown) (unknown) Pulse Rate 75 116 H (units unknown) (unknown) (unknown) (no date) (unknown) (unknown) Pulse Rate 75 70 (units unknown) (unknown) (unknown) (no date) (unknown) (unknown) Pulse Rate 75 74 74 (units unknown) (unknown) (unknown) (no date) (unknown) (unknown) Pulse Rate 75 (units unknown) (unknown) (unknown) (no date) (unknown) (unknown) Pulse Rate 76 (units unknown) (unknown) (unknown) (no date) (unknown) (unknown) Pulse Rate 78 75 (units unknown) (unknown) (unknown) (no date) (unknown) (unknown) Pulse Rate 84 77 (units unknown) (unknown) (unknown) (no date) (unknown) (unknown) Pulse Rate 86 72 (units unknown) (unknown) (unknown) (no date) (unknown) (unknown) Pulse Rate 98 H (units unknown) (unknown) (unknown) (no date) (unknown) (unknown) RBC 5.05 (units unknown) (unknown) (unknown) (no date) (unknown) (unknown) RBC (units unknown) (unknown) (unknown) (no date) (unknown) (unknown) RDW 14.4 (units unknown) (unknown) (unknown) (no date) (unknown) (unknown) RDW (units unknown) (unknown) (unknown) (no date) (unknown) (unknown) RSV (PCR) Negative (units unknown) (unknown) (unknown) (no date) (unknown) (unknown) RSV (PCR) (units unknown) (unknown) (unknown) (no date) (unknown) (unknown) Respiratory Rate 12 25 H (units unknown) (unknown) (unknown) (no date) (unknown) (unknown) Respiratory Rate 13 26 H (units unknown) (unknown) (unknown) (no date) (unknown) (unknown) Respiratory Rate 16 20 (units unknown) (unknown) (unknown) (no date) (unknown) (unknown) Respiratory Rate 17 26 H (units unknown) (unknown) (unknown) (no date) (unknown) (unknown) Respiratory Rate 17 (units unknown) (unknown) (unknown) (no date) (unknown) (unknown) Respiratory Rate 18 32 H (units unknown) (unknown) (unknown) (no date) (unknown) (unknown) Respiratory Rate 18 (units unknown) (unknown) (unknown) (no date) (unknown) (unknown) Respiratory Rate 19 18 (units unknown) (unknown) (unknown) (no date) (unknown) (unknown) Respiratory Rate 19 34 H 39 H (units unknown) (unknown) (unknown) (no date) (unknown) (unknown) Respiratory Rate 19 (units unknown) (unknown) (unknown) (no date) (unknown) (unknown) Respiratory Rate 20 (units unknown) (unknown) (unknown) (no date) (unknown) (unknown) Respiratory Rate 22 20 (units unknown) (unknown) (unknown) (no date) (unknown) (unknown) Respiratory Rate 23 17 16 (units unknown) (unknown) (unknown) (no date) (unknown) (unknown) Respiratory Rate 23 18 (units unknown) (unknown) (unknown) (no date) (unknown) (unknown) Respiratory Rate 24 19 (units unknown) (unknown) (unknown) (no date) (unknown) (unknown) Respiratory Rate 24 23 (units unknown) (unknown) (unknown) (no date) (unknown) (unknown) Respiratory Rate 27 H (units unknown) (unknown) (unknown) (no date) (unknown) (unknown) Respiratory Rate 29 H (units unknown) (unknown) (unknown) (no date) (unknown) (unknown) Respiratory Rate 30 H 24 (units unknown) (unknown) (unknown) (no date) (unknown) (unknown) Respiratory Rate (units unknown) (unknown) (unknown) (no date) (unknown) (unknown) Review of Systems (units unknown) (unknown) (unknown) (no date) (unknown) (unknown) SARS-CoV-2 (PCR) Negative (units unknown) (unknown) (unknown) (no date) (unknown) (unknown) SARS-CoV-2 (PCR) (units unknown) (unknown) (unknown) (no date) (unknown) (unknown) Safety + Behavioral: (units unknown) (unknown) (unknown) (no date) (unknown) (unknown) Signed By: (units unknown) (unknown) (unknown) (no date) (unknown) (unknown) Skin: Warm dry and intact without rashes, ulcerations or petechiae. (units unknown) (unknown) (unknown) (no date) (unknown) (unknown) Smoking Status Smoker, status unknown (units unknown) (unknown) (unknown) (no date) (unknown) (unknown) Sodium 135 L (units unknown) (unknown) (unknown) (no date) (unknown) (unknown) Sodium (units unknown) (unknown) (unknown) (no date) (unknown) (unknown) Substance Use Type does not use (units unknown) (unknown) (unknown) (no date) (unknown) (unknown) Surgical History (Updated 06/16/22 @ 21:27 by Hawa Michael ASSISTANT PRESS OPERATOR-) (units unknown) (unknown) (unknown) (no date) (unknown) (unknown) Temperature 98.1 F (units unknown) (unknown) (unknown) (no date) (unknown) (unknown) Temperature (units unknown) (unknown) (unknown) (no date) (unknown) (unknown) Time Patient Seen: 15:35 (units unknown) (unknown) (unknown) (no date) (unknown) (unknown) Time Spent With Patient (units unknown) (unknown) (unknown) (no date) (unknown) (unknown) Tobacco + Substance use: (units unknown) (unknown) (unknown) (no date) (unknown) (unknown) Total Bilirubin 2.1 H (units unknown) (unknown) (unknown) (no date) (unknown) (unknown) Total Bilirubin (units unknown) (unknown) (unknown) (no date) (unknown) (unknown) Total Creatine Kinase 53 L (units unknown) (unknown) (unknown) (no date) (unknown) (unknown) Total Creatine Kinase (units unknown) (unknown) (unknown) (no date) (unknown) (unknown) Total Protein 5.8 L (units unknown) (unknown) (unknown) (no date) (unknown) (unknown) Total Protein (units unknown) (unknown) (unknown) (no date) (unknown) (unknown) Troponin I < 0.012 (units unknown) (unknown) (unknown) (no date) (unknown) (unknown) Troponin I (units unknown) (unknown) (unknown) (no date) (unknown) (unknown) Upon admit BP 149/78, tachycardic heart rate 154, tachypneic R 29, O2 saturation (units unknown) (unknown) (unknown) (no date) (unknown) (unknown) Ur Bilirubin Confirm Positive H (units unknown) (unknown) (unknown) (no date) (unknown) (unknown) Ur Bilirubin Confirm (units unknown) (unknown) (unknown) (no date) (unknown) (unknown) Ur Culture Indicated? Specimen cultured (units unknown) (unknown) (unknown) (no date) (unknown) (unknown) Ur Culture Indicated? (units unknown) (unknown) (unknown) (no date) (unknown) (unknown) Ur Leukocyte Esterase Trace H (units unknown) (unknown) (unknown) (no date) (unknown) (unknown) Ur Leukocyte Esterase (units unknown) (unknown) (unknown) (no date) (unknown) (unknown) Ur Specific [place] 1.020 (units unknown) (unknown) (unknown) (no date) (unknown) (unknown) Ur Specific [place] (units unknown) (unknown) (unknown) (no date) (unknown) (unknown) Ur Squamous Epith Cells 1-5 /hpf (units unknown) (unknown) (unknown) (no date) (unknown) (unknown) Ur Squamous Epith Cells (units unknown) (unknown) (unknown) (no date) (unknown) (unknown) Urine Appearance Cloudy (units unknown) (unknown) (unknown) (no date) (unknown) (unknown) Urine Appearance (units unknown) (unknown) (unknown) (no date) (unknown) (unknown) Urine Bacteria None seen (units unknown) (unknown) (unknown) (no date) (unknown) (unknown) Urine Bacteria (units unknown) (unknown) (unknown) (no date) (unknown) (unknown) Urine Bilirubin 3+ H (units unknown) (unknown) (unknown) (no date) (unknown) (unknown) Urine Bilirubin (units unknown) (unknown) (unknown) (no date) (unknown) (unknown) Urine Color Brown (units unknown) (unknown) (unknown) (no date) (unknown) (unknown) Urine Color (units unknown) (unknown) (unknown) (no date) (unknown) (unknown) Urine Glucose (UA) Negative (units unknown) (unknown) (unknown) (no date) (unknown) (unknown) Urine Glucose (UA) (units unknown) (unknown) (unknown) (no date) (unknown) (unknown) Urine Ketones 1+ H (units unknown) (unknown) (unknown) (no date) (unknown) (unknown) Urine Ketones (units unknown) (unknown) (unknown) (no date) (unknown) (unknown) Urine Nitrate Positive H (units unknown) (unknown) (unknown) (no date) (unknown) (unknown) Urine Nitrate (units unknown) (unknown) (unknown) (no date) (unknown) (unknown) Urine Occult Blood Trace-intact (units unknown) (unknown) (unknown) (no date) (unknown) (unknown) Urine Occult Blood (units unknown) (unknown) (unknown) (no date) (unknown) (unknown) Urine Protein 1+ H (units unknown) (unknown) (unknown) (no date) (unknown) (unknown) Urine Protein (units unknown) (unknown) (unknown) (no date) (unknown) (unknown) Urine RBC 10-30/hpf H (units unknown) (unknown) (unknown) (no date) (unknown) (unknown) Urine RBC (units unknown) (unknown) (unknown) (no date) (unknown) (unknown) Urine Urobilinogen 1.0 (units unknown) (unknown) (unknown) (no date) (unknown) (unknown) Urine Urobilinogen (units unknown) (unknown) (unknown) (no date) (unknown) (unknown) Urine WBC 1-5/hpf (units unknown) (unknown) (unknown) (no date) (unknown) (unknown) Urine WBC (units unknown) (unknown) (unknown) (no date) (unknown) (unknown) Urine pH 6.5 (units unknown) (unknown) (unknown) (no date) (unknown) (unknown) Urine pH (units unknown) (unknown) (unknown) (no date) (unknown) (unknown) Vital Signs (units unknown) (unknown) (unknown) (no date) (unknown) (unknown) WBC 9.6 (units unknown) (unknown) (unknown) (no date) (unknown) (unknown) WBC (units unknown) (unknown) (unknown) (no date) (unknown) (unknown) [Embedded Image Not Available] (units unknown) (unknown) (unknown) (no date) (unknown) (unknown) [From Prevnar] and feet x (units unknown) (unknown) (unknown) (no date) (unknown) (unknown) abnormal. COVID, influenza a/B/RSV negative. Head CT negative. CXR ?Possible (units unknown) (unknown) (unknown) (no date) (unknown) (unknown) after. (units unknown) (unknown) (unknown) (no date) (unknown) (unknown) alcohol intake frequency a few times a month (units unknown) (unknown) (unknown) (no date) (unknown) (unknown) amlodipine 5 mg tablet 5 mg PO DAILY 06/16/22 06/16/22 History (units unknown) (unknown) (unknown) (no date) (unknown) (unknown) apixaban 5 mg tablet (Eliquis) 5 mg PO BID blood thinner 06/16/22 06/16/22 (units unknown) (unknown) (unknown) (no date) (unknown) (unknown) are present in all 4 quadrants without guarding or rebound, no CVA tenderness. (units unknown) (unknown) (unknown) (no date) (unknown) (unknown) attitude thought context and judgment are appropriate for age. (units unknown) (unknown) (unknown) (no date) (unknown) (unknown) because he had black urine this morning'. He did not recall seeing Dr. Gillette, (units unknown) (unknown) (unknown) (no date) (unknown) (unknown) clear and mucous membranes are moist. 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 Full range (units unknown) (unknown) (unknown) (no date) (unknown) (unknown) documented. (units unknown) (unknown) (unknown) (no date) (unknown) (unknown) due to his significant presentation of cachexia, weakness, malaise balance (units unknown) (unknown) (unknown) (no date) (unknown) (unknown) due to his significant presentation of cachexia, weakness, malaise, balance (units unknown) (unknown) (unknown) (no date) (unknown) (unknown) dysuria, frequency, urgency, hematuria, bowel changes, constipation, (units unknown) (unknown) (unknown) (no date) (unknown) (unknown) falls, head injury, LOC, fever, body aches, chills, cough, recent exposure to (units unknown) (unknown) (unknown) (no date) (unknown) (unknown) fluticasone propionate 44 44 mcg inhalation DAILY 06/16/22 06/16/22 History (units unknown) (unknown) (unknown) (no date) (unknown) (unknown) gabapentin 300 mg capsule 300 mg PO BID 06/16/22 06/16/22 History (units unknown) (unknown) (unknown) (no date) (unknown) (unknown) greater than left pulmonary effusion. SOFA:2 patient admitted for mild sepsis, (units unknown) (unknown) (unknown) (no date) (unknown) (unknown) heart rates 111-154, and tachypneic respiratory rate in the 20s. During admit (units unknown) (unknown) (unknown) (no date) (unknown) (unknown) illness, abdominal pain, nausea, vomiting, urinary incontinence/retent ion, (units unknown) (unknown) (unknown) (no date) (unknown) (unknown) incontinence, melena, rashes, recent changes to medication, illness, injury, or (units unknown) (unknown) (unknown) (no date) (unknown) (unknown) infiltrates versus inflammatory pulmonary opacities mild to moderate right (units unknown) (unknown) (unknown) (no date) (unknown) (unknown) interview patient is a poor historian, stated that 'he came in today by himself (units unknown) (unknown) (unknown) (no date) (unknown) (unknown) into the ED by his . In ED patient demonstrated escalating tachycardia with (units unknown) (unknown) (unknown) (no date) (unknown) (unknown) into the ED by his . Patient demonstrated escalating tachycardia with heart (units unknown) (unknown) (unknown) (no date) (unknown) (unknown) mcg/actuation HFA aerosol inhaler (units unknown) (unknown) (unknown) (no date) (unknown) (unknown) midline, no adenopathy, no thyroid enlargement, nontender, no masses palpated. (units unknown) (unknown) (unknown) (no date) (unknown) (unknown) mild right and retrocardiac opacities Chest CT demonstrated bibasilar (units unknown) (unknown) (unknown) (no date) (unknown) (unknown) negative, BNP 1430. EKG atrial sensed ventricular paced rhythm rate 72, (units unknown) (unknown) (unknown) (no date) (unknown) (unknown) no carotid bruit, no cardiac pulsations present. (units unknown) (unknown) (unknown) (no date) (unknown) (unknown) no distress at this time. (units unknown) (unknown) (unknown) (no date) (unknown) (unknown) obtain HPI, ROS, or medication reconciliation. Patient denies any pain, and is (units unknown) (unknown) (unknown) (no date) (unknown) (unknown) of motion intact radial and pedal pulses are normal. 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 Gillette cardiology's office (units unknown) (unknown) (unknown) (no date) (unknown) (unknown) pneumococcal 7-valent AdvReac Intermediate swelling Verified 06/16/22 12:46 (units unknown) (unknown) (unknown) (no date) (unknown) (unknown) rates 111-154, and tachypneic respiratory rate in the 20s. (units unknown) (unknown) (unknown) (no date) (unknown) (unknown) retractions, or tachypneic labored (units unknown) (unknown) (unknown) (no date) (unknown) (unknown) time. (units unknown) (unknown) (unknown) (no date) (unknown) (unknown) to touch intact, no gross deficits noted of cranial nerves. (units unknown) (unknown) (unknown) (no date) (unknown) (unknown) today; this time is exclusive of procedural time. (units unknown) (unknown) (unknown) (no date) (unknown) (unknown) transaminitis, UTI, elevated phosphorus. (units unknown) (unknown) (unknown) (no date) (unknown) (unknown) trauma. (units unknown) (unknown) (unknown) (no date) (unknown) (unknown) unsure if this is the patient's baseline. Due to cognitive impairment unable to (units unknown) (unknown) (unknown) (no date) (unknown) (unknown) vision, difficulty swallowing, speech impairment, numbness, tingling, recent (units unknown) (unknown) (unknown) (no date) (unknown) (unknown) weight loss, and night sweats with a shuffling gait x6 weeks. He was brought (units unknown) (unknown) (unknown) (no date) (unknown) (unknown) wheezes, rhonchi, or rales. (units unknown) (unknown) Result panel 214 (unknown) (no date) (unknown) (unknown) (no value) (units unknown) (unknown) (unknown) (no date) (unknown) (unknown) [id number] (units unknown) (unknown) (unknown) (no date) (unknown) (unknown) 06/17/22 (units unknown) (unknown) (unknown) (no date) (unknown) (unknown) [address] [place] [address] (units unknown) (unknown) (unknown) (no date) (unknown) (unknown) Accession Number: [id number] (units unknown) (unknown) (unknown) (no date) (unknown) (unknown) Age/Sex: 86 / M Date of Service: (units unknown) (unknown) (unknown) (no date) (unknown) (unknown) [place] [id number] (units unknown) (unknown) (unknown) (no date) (unknown) (unknown) Approved by: Feliberto Mendoza M.D. on 06/17/2022 at 10:08 (units unknown) (unknown) (unknown) (no date) (unknown) (unknown) Biliary ducts: Intrahepatic bile ducts are non-dilated. Extrahepatic bile (units unknown) (unknown) (unknown) (no date) (unknown) (unknown) COMPARISON: [facility], CT, CT ABDOMEN PELVIS W CON, 06/16/2022, 21:22. (units unknown) (unknown) (unknown) (no date) (unknown) (unknown) CT 06/16/2019 (units unknown) (unknown) (unknown) (no date) (unknown) (unknown) : 1935 Acct:[id number] (units unknown) (unknown) (unknown) (no date) (unknown) (unknown) Diffusely heterogenous hepatic parenchyma is consistent with findings on the (units unknown) (unknown) (unknown) (no date) (unknown) (unknown) FINDINGS: (units unknown) (unknown) (unknown) (no date) (unknown) (unknown) Gallbladder: Biliary sludge present without shadowing calculi. There is (units unknown) (unknown) (unknown) (no date) (unknown) (unknown) IMPRESSION: (units unknown) (unknown) (unknown) (no date) (unknown) (unknown) INDICATIONS: POSSIBLE LIVER METS (units unknown) (unknown) (unknown) (no date) (unknown) (unknown) [facility] (units unknown) (unknown) (unknown) (no date) (unknown) (unknown) Liver: Liver is diffusely echogenic in heterogenous without focal obvious (units unknown) (unknown) (unknown) (no date) (unknown) (unknown) Loc: AC 206-1 (units unknown) (unknown) (unknown) (no date) (unknown) (unknown) Miscellaneous: No free abdominal fluid. (units unknown) (unknown) (unknown) (no date) (unknown) (unknown) Nonspecific gallbladder wall thickening without cholelithiasis (units unknown) (unknown) (unknown) (no date) (unknown) (unknown) Ordering Provider: Hawa Michael (units unknown) (unknown) (unknown) (no date) (unknown) (unknown) PROCEDURE: US ABDOMEN LIMITED (units unknown) (unknown) (unknown) (no date) (unknown) (unknown) Pancreas: Nonvisualized (units unknown) (unknown) (unknown) (no date) (unknown) (unknown) Patent pedal flows noted in the main portal vein (units unknown) (unknown) (unknown) (no date) (unknown) (unknown) Patient: Yoseph Cardoso MR#: [id number] (units unknown) (unknown) (unknown) (no date) (unknown) (unknown) Procedure: US abdomen limited (units unknown) (unknown) (unknown) (no date) (unknown) (unknown) Real-time scanning was performed of the abdominal and retroperitoneal organs, (units unknown) (unknown) (unknown) (no date) (unknown) (unknown) Signed (units unknown) (unknown) (unknown) (no date) (unknown) (unknown) TECHNIQUE: (units unknown) (unknown) (unknown) (no date) (unknown) (unknown) Ultrasound Report (units unknown) (unknown) (unknown) (no date) (unknown) (unknown) concurrent (units unknown) (unknown) (unknown) (no date) (unknown) (unknown) documentation. (units unknown) (unknown) (unknown) (no date) (unknown) (unknown) duct caliber (units unknown) (unknown) (unknown) (no date) (unknown) (unknown) gallbladder (units unknown) (unknown) (unknown) (no date) (unknown) (unknown) measures 4.5 mm. Normal is 6-7 mm or less in diameter, or 10 mm or less (units unknown) (unknown) (unknown) (no date) (unknown) (unknown) nodule. (units unknown) (unknown) (unknown) (no date) (unknown) (unknown) post-cholecystectom y. (units unknown) (unknown) (unknown) (no date) (unknown) (unknown) wall thickening up to 6.4 mm associated with trace pericholecystic fluid. (units unknown) (unknown) (unknown) (no date) (unknown) (unknown) with image (units unknown) (unknown) Result panel 215 (unknown) (no date) (unknown) (unknown) (no value) (units unknown) (unknown) (unknown) (no date) (unknown) (unknown) (Flovent HFA) (units unknown) (unknown) (unknown) (no date) (unknown) (unknown) (past 8 hours): (units unknown) (unknown) (unknown) (no date) (unknown) (unknown) [id number] (units unknown) (unknown) (unknown) (no date) (unknown) (unknown) 06/16/22 06/16/22 06/16/22 (units unknown) (unknown) (unknown) (no date) (unknown) (unknown) 06/16/22 06/16/22 (units unknown) (unknown) (unknown) (no date) (unknown) (unknown) 06/16/22 12:35 (units unknown) (unknown) (unknown) (no date) (unknown) (unknown) 06/16/22 (units unknown) (unknown) (unknown) (no date) (unknown) (unknown) 12:35 12:35 12:35 (units unknown) (unknown) (unknown) (no date) (unknown) (unknown) 13:15 06/16/22 (units unknown) (unknown) (unknown) (no date) (unknown) (unknown) 13:30 (units unknown) (unknown) (unknown) (no date) (unknown) (unknown) 13:45 06/16/22 (units unknown) (unknown) (unknown) (no date) (unknown) (unknown) 13:46 06/16/22 (units unknown) (unknown) (unknown) (no date) (unknown) (unknown) 13:46 (units unknown) (unknown) (unknown) (no date) (unknown) (unknown) 14:00 06/16/22 (units unknown) (unknown) (unknown) (no date) (unknown) (unknown) 14:24 (units unknown) (unknown) (unknown) (no date) (unknown) (unknown) 14:30 06/16/22 (units unknown) (unknown) (unknown) (no date) (unknown) (unknown) 14:45 06/16/22 (units unknown) (unknown) (unknown) (no date) (unknown) (unknown) 15:00 (units unknown) (unknown) (unknown) (no date) (unknown) (unknown) 15:15 06/16/22 (units unknown) (unknown) (unknown) (no date) (unknown) (unknown) 15:30 06/16/22 (units unknown) (unknown) (unknown) (no date) (unknown) (unknown) 15:30 17:55 (units unknown) (unknown) (unknown) (no date) (unknown) (unknown) 15:34 06/16/22 (units unknown) (unknown) (unknown) (no date) (unknown) (unknown) 15:34 (units unknown) (unknown) (unknown) (no date) (unknown) (unknown) 15:45 06/16/22 (units unknown) (unknown) (unknown) (no date) (unknown) (unknown) 15:45 (units unknown) (unknown) (unknown) (no date) (unknown) (unknown) 16:00 06/16/22 (units unknown) (unknown) (unknown) (no date) (unknown) (unknown) 16:15 06/16/22 (units unknown) (unknown) (unknown) (no date) (unknown) (unknown) 16:15 (units unknown) (unknown) (unknown) (no date) (unknown) (unknown) 16:30 06/16/22 (units unknown) (unknown) (unknown) (no date) (unknown) (unknown) 16:31 06/16/22 (units unknown) (unknown) (unknown) (no date) (unknown) (unknown) 16:31 (units unknown) (unknown) (unknown) (no date) (unknown) (unknown) 16:45 06/16/22 (units unknown) (unknown) (unknown) (no date) (unknown) (unknown) 17:00 06/16/22 (units unknown) (unknown) (unknown) (no date) (unknown) (unknown) 17:00 (units unknown) (unknown) (unknown) (no date) (unknown) (unknown) 17:15 06/16/22 (units unknown) (unknown) (unknown) (no date) (unknown) (unknown) 17:15 (units unknown) (unknown) (unknown) (no date) (unknown) (unknown) 17:30 06/16/22 (units unknown) (unknown) (unknown) (no date) (unknown) (unknown) 17:45 (units unknown) (unknown) (unknown) (no date) (unknown) (unknown) 17:46 06/16/22 (units unknown) (unknown) (unknown) (no date) (unknown) (unknown) 17:59 (units unknown) (unknown) (unknown) (no date) (unknown) (unknown) 18:00 06/16/22 (units unknown) (unknown) (unknown) (no date) (unknown) (unknown) 18:01 06/16/22 (units unknown) (unknown) (unknown) (no date) (unknown) (unknown) 18:15 06/16/22 (units unknown) (unknown) (unknown) (no date) (unknown) (unknown) 18:15 (units unknown) (unknown) (unknown) (no date) (unknown) (unknown) 18:30 06/16/22 (units unknown) (unknown) (unknown) (no date) (unknown) (unknown) 18:30 (units unknown) (unknown) (unknown) (no date) (unknown) (unknown) 18:45 06/16/22 (units unknown) (unknown) (unknown) (no date) (unknown) (unknown) 19:00 06/16/22 (units unknown) (unknown) (unknown) (no date) (unknown) (unknown) 19:00 (units unknown) (unknown) (unknown) (no date) (unknown) (unknown) 19:15 06/16/22 (units unknown) (unknown) (unknown) (no date) (unknown) (unknown) 19:15 (units unknown) (unknown) (unknown) (no date) (unknown) (unknown) 19:30 06/16/22 (units unknown) (unknown) (unknown) (no date) (unknown) (unknown) 19:45 06/16/22 (units unknown) (unknown) (unknown) (no date) (unknown) (unknown) 19:45 (units unknown) (unknown) (unknown) (no date) (unknown) (unknown) 20:00 06/16/22 (units unknown) (unknown) (unknown) (no date) (unknown) (unknown) 20:00 (units unknown) (unknown) (unknown) (no date) (unknown) (unknown) 20:15 06/16/22 (units unknown) (unknown) (unknown) (no date) (unknown) (unknown) 20:30 06/16/22 (units unknown) (unknown) (unknown) (no date) (unknown) (unknown) 20:30 (units unknown) (unknown) (unknown) (no date) (unknown) (unknown) 20:45 06/16/22 (units unknown) (unknown) (unknown) (no date) (unknown) (unknown) 20:46 06/16/22 (units unknown) (unknown) (unknown) (no date) (unknown) (unknown) 20:46 (units unknown) (unknown) (unknown) (no date) (unknown) (unknown) 20:55 (units unknown) (unknown) (unknown) (no date) (unknown) (unknown) 20s. During admit interview patient is pleasantly confused but a very poor (units unknown) (unknown) (unknown) (no date) (unknown) (unknown) 34, glucose 146, calcium 8.1, magnesium 2.6, phosphorus 4.1, bili 2.1, AST 61, (units unknown) (unknown) (unknown) (no date) (unknown) (unknown) 4 mos (units unknown) (unknown) (unknown) (no date) (unknown) (unknown) 4.3, repeat 2.7, procalcitonin 3.27, PT 17.6, INR 1.5, PTT 38. Sodium 135, BUN (units unknown) (unknown) (unknown) (no date) (unknown) (unknown) 98% on room air. Patient has no WBC, but left shiftneut 8200, initial lactate (units unknown) (unknown) (unknown) (no date) (unknown) (unknown) ALT 63 H (units unknown) (unknown) (unknown) (no date) (unknown) (unknown) ALT 63, alk-phos 428, total protein 5.8, albumin 3.1, CK 53, initial troponin (units unknown) (unknown) (unknown) (no date) (unknown) (unknown) ALT (units unknown) (unknown) (unknown) (no date) (unknown) (unknown) APTT 38 H (units unknown) (unknown) (unknown) (no date) (unknown) (unknown) APTT (units unknown) (unknown) (unknown) (no date) (unknown) (unknown) AST 61 H (units unknown) (unknown) (unknown) (no date) (unknown) (unknown) AST (units unknown) (unknown) (unknown) (no date) (unknown) (unknown) Abdomen: Soft nontender, negative for organomegaly, or masses. Bowel sounds (units unknown) (unknown) (unknown) (no date) (unknown) (unknown) Age/Sex: 86 / M (units unknown) (unknown) (unknown) (no date) (unknown) (unknown) Albumin 3.1 L (units unknown) (unknown) (unknown) (no date) (unknown) (unknown) Albumin (units unknown) (unknown) (unknown) (no date) (unknown) (unknown) Albumin/Globulin Ratio 1.1 (units unknown) (unknown) (unknown) (no date) (unknown) (unknown) Albumin/Globulin Ratio (units unknown) (unknown) (unknown) (no date) (unknown) (unknown) Alkaline Phosphatase 428 H (units unknown) (unknown) (unknown) (no date) (unknown) (unknown) Alkaline Phosphatase (units unknown) (unknown) (unknown) (no date) (unknown) (unknown) All 12 point systems reviewed with the patient and are negative except otherwise (units unknown) (unknown) (unknown) (no date) (unknown) (unknown) Allergies (units unknown) (unknown) (unknown) (no date) (unknown) (unknown) Allergy/AdvReac Type Severity Reaction Status Date / Time (units unknown) (unknown) (unknown) (no date) (unknown) (unknown) Assessment + Plan narrative: (units unknown) (unknown) (unknown) (no date) (unknown) (unknown) Assessment + Plan (units unknown) (unknown) (unknown) (no date) (unknown) (unknown) Atrial fibrillation (units unknown) (unknown) (unknown) (no date) (unknown) (unknown) BUN 34 H (units unknown) (unknown) (unknown) (no date) (unknown) (unknown) BUN (units unknown) (unknown) (unknown) (no date) (unknown) (unknown) BUN/Creatinine Ratio 34.3 H (units unknown) (unknown) (unknown) (no date) (unknown) (unknown) BUN/Creatinine Ratio (units unknown) (unknown) (unknown) (no date) (unknown) (unknown) Baso # (Auto) 100 (units unknown) (unknown) (unknown) (no date) (unknown) (unknown) Baso # (Auto) (units unknown) (unknown) (unknown) (no date) (unknown) (unknown) Baso % (Auto) 0.8 (units unknown) (unknown) (unknown) (no date) (unknown) (unknown) Baso % (Auto) (units unknown) (unknown) (unknown) (no date) (unknown) (unknown) Blood Pressure 141/57 H (units unknown) (unknown) (unknown) (no date) (unknown) (unknown) Blood Pressure 141/73 H (units unknown) (unknown) (unknown) (no date) (unknown) (unknown) Blood Pressure 142/65 H 156/70 H (units unknown) (unknown) (unknown) (no date) (unknown) (unknown) Blood Pressure 142/67 H (units unknown) (unknown) (unknown) (no date) (unknown) (unknown) Blood Pressure 143/67 H (units unknown) (unknown) (unknown) (no date) (unknown) (unknown) Blood Pressure 145/69 H (units unknown) (unknown) (unknown) (no date) (unknown) (unknown) Blood Pressure 146/69 H (units unknown) (unknown) (unknown) (no date) (unknown) (unknown) Blood Pressure 147/71 H 150/72 H (units unknown) (unknown) (unknown) (no date) (unknown) (unknown) Blood Pressure 149/68 H 130/59 L (units unknown) (unknown) (unknown) (no date) (unknown) (unknown) Blood Pressure 149/78 H 155/70 H (units unknown) (unknown) (unknown) (no date) (unknown) (unknown) Blood Pressure 150/73 H (units unknown) (unknown) (unknown) (no date) (unknown) (unknown) Blood Pressure 151/72 H (units unknown) (unknown) (unknown) (no date) (unknown) (unknown) Blood Pressure 154/73 H (units unknown) (unknown) (unknown) (no date) (unknown) (unknown) Blood Pressure 156/72 H 151/72 H (units unknown) (unknown) (unknown) (no date) (unknown) (unknown) Blood Pressure 162/114 H (units unknown) (unknown) (unknown) (no date) (unknown) (unknown) Blood Pressure 164/94 H 164/96 H (units unknown) (unknown) (unknown) (no date) (unknown) (unknown) Blood Pressure 179/74 H 179/94 H (units unknown) (unknown) (unknown) (no date) (unknown) (unknown) Blood Pressure 186/112 H 169/75 H (units unknown) (unknown) (unknown) (no date) (unknown) (unknown) Blood Pressure (units unknown) (unknown) (unknown) (no date) (unknown) (unknown) CK-MB (CK-2) Rel Index TNP (units unknown) (unknown) (unknown) (no date) (unknown) (unknown) CK-MB (CK-2) Rel Index (units unknown) (unknown) (unknown) (no date) (unknown) (unknown) CK-MB (CK-2) TNP (units unknown) (unknown) (unknown) (no date) (unknown) (unknown) CK-MB (CK-2) (units unknown) (unknown) (unknown) (no date) (unknown) (unknown) Calcium 8.1 L (units unknown) (unknown) (unknown) (no date) (unknown) (unknown) Calcium (units unknown) (unknown) (unknown) (no date) (unknown) (unknown) Carbon Dioxide 28 (units unknown) (unknown) (unknown) (no date) (unknown) (unknown) Carbon Dioxide (units unknown) (unknown) (unknown) (no date) (unknown) (unknown) Cardio: S1 + S2 with regular rate and rhythm without murmur, rubs, or gallops, (units unknown) (unknown) (unknown) (no date) (unknown) (unknown) Chest: Normal AP diameter and contour without kyphoscoliosis, no nasal flaring, (units unknown) (unknown) (unknown) (no date) (unknown) (unknown) Chief complaint: Pain near pacemaker (units unknown) (unknown) (unknown) (no date) (unknown) (unknown) Chloride 99 (units unknown) (unknown) (unknown) (no date) (unknown) (unknown) Chloride (units unknown) (unknown) (unknown) (no date) (unknown) (unknown) Creatinine 0.99 (units unknown) (unknown) (unknown) (no date) (unknown) (unknown) Creatinine (units unknown) (unknown) (unknown) (no date) (unknown) (unknown) Critical Care time: (units unknown) (unknown) (unknown) (no date) (unknown) (unknown) : 1935 Acct:[id number] (units unknown) (unknown) (unknown) (no date) (unknown) (unknown) Date Patient Seen: 06/16/22 (units unknown) (unknown) (unknown) (no date) (unknown) (unknown) Date of Service: 06/16/22 (units unknown) (unknown) (unknown) (no date) (unknown) (unknown) Yoseph Cardoso is a 86-year-old male with a history of atrial fibrillation, with (units unknown) (unknown) (unknown) (no date) (unknown) (unknown) Environment (units unknown) (unknown) (unknown) (no date) (unknown) (unknown) Eos # (Auto) 0 (units unknown) (unknown) (unknown) (no date) (unknown) (unknown) Eos # (Auto) (units unknown) (unknown) (unknown) (no date) (unknown) (unknown) Eos % (Auto) 0.1 L (units unknown) (unknown) (unknown) (no date) (unknown) (unknown) Eos % (Auto) (units unknown) (unknown) (unknown) (no date) (unknown) (unknown) Estimated GFR > 60 (units unknown) (unknown) (unknown) (no date) (unknown) (unknown) Estimated GFR (units unknown) (unknown) (unknown) (no date) (unknown) (unknown) Exam Narrative: (units unknown) (unknown) (unknown) (no date) (unknown) (unknown) Exam (units unknown) (unknown) (unknown) (no date) (unknown) (unknown) Family + Social History (units unknown) (unknown) (unknown) (no date) (unknown) (unknown) Feels Safe in Current Yes (units unknown) (unknown) (unknown) (no date) (unknown) (unknown) Fever, jaundice, right upper quadrant pain? (units unknown) (unknown) (unknown) (no date) (unknown) (unknown) General: Patient is a well-developed, well-nourished in no distress at this (units unknown) (unknown) (unknown) (no date) (unknown) (unknown) Globulin 2.7 (units unknown) (unknown) (unknown) (no date) (unknown) (unknown) Globulin (units unknown) (unknown) (unknown) (no date) (unknown) (unknown) Glucose 146 H (units unknown) (unknown) (unknown) (no date) (unknown) (unknown) Glucose (units unknown) (unknown) (unknown) (no date) (unknown) (unknown) HEENT: Normocephalic, atraumatic, extraocular muscles intact, oral pharynx is (units unknown) (unknown) (unknown) (no date) (unknown) (unknown) Hct 46.6 (units unknown) (unknown) (unknown) (no date) (unknown) (unknown) Hct (units unknown) (unknown) (unknown) (no date) (unknown) (unknown) Hgb 15.4 (units unknown) (unknown) (unknown) (no date) (unknown) (unknown) Hgb (units unknown) (unknown) (unknown) (no date) (unknown) (unknown) History + Physical Report (units unknown) (unknown) (unknown) (no date) (unknown) (unknown) History of Present Illness (units unknown) (unknown) (unknown) (no date) (unknown) (unknown) History of melanoma (units unknown) (unknown) (unknown) (no date) (unknown) (unknown) History of permanent cardiac pacemaker placement (units unknown) (unknown) (unknown) (no date) (unknown) (unknown) History (units unknown) (unknown) (unknown) (no date) (unknown) (unknown) Home Medications and Allergies (units unknown) (unknown) (unknown) (no date) (unknown) (unknown) Home Medications (units unknown) (unknown) (unknown) (no date) (unknown) (unknown) I spent a total of [] minutes of critical care time on this patient's care (units unknown) (unknown) (unknown) (no date) (unknown) (unknown) INR 1.5 H (units unknown) (unknown) (unknown) (no date) (unknown) (unknown) INR (units unknown) (unknown) (unknown) (no date) (unknown) (unknown) Influenza A (RT-PCR) Flu a negative (units unknown) (unknown) (unknown) (no date) (unknown) (unknown) Influenza A (RT-PCR) (units unknown) (unknown) (unknown) (no date) (unknown) (unknown) Influenza B (RT-PCR) Flu b negative (units unknown) (unknown) (unknown) (no date) (unknown) (unknown) Influenza B (RT-PCR) (units unknown) (unknown) (unknown) (no date) (unknown) (unknown) [address] [address] (units unknown) (unknown) (unknown) (no date) (unknown) (unknown) Laboratory Results - last 24 hr (units unknown) (unknown) (unknown) (no date) (unknown) (unknown) Labs (units unknown) (unknown) (unknown) (no date) (unknown) (unknown) Labs: (units unknown) (unknown) (unknown) (no date) (unknown) (unknown) Lactate 2.7 H (units unknown) (unknown) (unknown) (no date) (unknown) (unknown) Lactate 4.3 H* (units unknown) (unknown) (unknown) (no date) (unknown) (unknown) Lactate (units unknown) (unknown) (unknown) (no date) (unknown) (unknown) Lipase 45 (units unknown) (unknown) (unknown) (no date) (unknown) (unknown) Lipase (units unknown) (unknown) (unknown) (no date) (unknown) (unknown) Lungs: Auscultation of all lung troy are clear without adventitious sounds, (units unknown) (unknown) (unknown) (no date) (unknown) (unknown) Lymph # (Auto) 400 L (units unknown) (unknown) (unknown) (no date) (unknown) (unknown) Lymph # (Auto) (units unknown) (unknown) (unknown) (no date) (unknown) (unknown) Lymph % (Auto) 4.6 L (units unknown) (unknown) (unknown) (no date) (unknown) (unknown) Lymph % (Auto) (units unknown) (unknown) (unknown) (no date) (unknown) (unknown) MCH 30.4 (units unknown) (unknown) (unknown) (no date) (unknown) (unknown) MCH (units unknown) (unknown) (unknown) (no date) (unknown) (unknown) MCHC 33.0 (units unknown) (unknown) (unknown) (no date) (unknown) (unknown) MCHC (units unknown) (unknown) (unknown) (no date) (unknown) (unknown) MCV 92.4 (units unknown) (unknown) (unknown) (no date) (unknown) (unknown) MCV (units unknown) (unknown) (unknown) (no date) (unknown) (unknown) Magnesium 2.6 H (units unknown) (unknown) (unknown) (no date) (unknown) (unknown) Magnesium (units unknown) (unknown) (unknown) (no date) (unknown) (unknown) Medical History (Updated 06/16/22 @ 22:05 by Fernando Naylor DO) (units unknown) (unknown) (unknown) (no date) (unknown) (unknown) Medication Instructions Recorded Confirmed Type (units unknown) (unknown) (unknown) (no date) (unknown) (unknown) Meds (units unknown) (unknown) (unknown) (no date) (unknown) (unknown) [place] # (Auto) 900 (units unknown) (unknown) (unknown) (no date) (unknown) (unknown) [place] # (Auto) (units unknown) (unknown) (unknown) (no date) (unknown) (unknown) [place] % (Auto) 9.4 (units unknown) (unknown) (unknown) (no date) (unknown) (unknown) [place] % (Auto) (units unknown) (unknown) (unknown) (no date) (unknown) (unknown) Musculoskeletal: Muscle strength and tone are equal within normal limits, no (units unknown) (unknown) (unknown) (no date) (unknown) (unknown) NT-Pro-B Natriuret Pep 1430 H (units unknown) (unknown) (unknown) (no date) (unknown) (unknown) NT-Pro-B Natriuret Pep (units unknown) (unknown) (unknown) (no date) (unknown) (unknown) Narrative (units unknown) (unknown) (unknown) (no date) (unknown) (unknown) Narrative: (units unknown) (unknown) (unknown) (no date) (unknown) (unknown) Negative for JVD (units unknown) (unknown) (unknown) (no date) (unknown) (unknown) Neuro: Alert and orientated x3, strength is +5/5 in all extremities, sensation (units unknown) (unknown) (unknown) (no date) (unknown) (unknown) Neut # (Auto) 8200 H (units unknown) (unknown) (unknown) (no date) (unknown) (unknown) Neut # (Auto) (units unknown) (unknown) (unknown) (no date) (unknown) (unknown) Neut % (Auto) 85.1 H (units unknown) (unknown) (unknown) (no date) (unknown) (unknown) Neut % (Auto) (units unknown) (unknown) (unknown) (no date) (unknown) (unknown) Objective (units unknown) (unknown) (unknown) (no date) (unknown) (unknown) On admit patient denies chest pain, shortness in breath, headache, changes in (units unknown) (unknown) (unknown) (no date) (unknown) (unknown) Oxygen Delivery Method Room Air (units unknown) (unknown) (unknown) (no date) (unknown) (unknown) Oxygen Delivery Method (units unknown) (unknown) (unknown) (no date) (unknown) (unknown) PT 17.6 H (units unknown) (unknown) (unknown) (no date) (unknown) (unknown) PT (units unknown) (unknown) (unknown) (no date) (unknown) (unknown) Pacemaker (units unknown) (unknown) (unknown) (no date) (unknown) (unknown) Patient History (units unknown) (unknown) (unknown) (no date) (unknown) (unknown) Patient: Yoseph Cardoso MR#: [id number] (units unknown) (unknown) (unknown) (no date) (unknown) (unknown) Phosphorus 4.1 H (units unknown) (unknown) (unknown) (no date) (unknown) (unknown) Phosphorus (units unknown) (unknown) (unknown) (no date) (unknown) (unknown) Plt Count 222 (units unknown) (unknown) (unknown) (no date) (unknown) (unknown) Plt Count (units unknown) (unknown) (unknown) (no date) (unknown) (unknown) Potassium 4.8 (units unknown) (unknown) (unknown) (no date) (unknown) (unknown) Potassium (units unknown) (unknown) (unknown) (no date) (unknown) (unknown) Procalcitonin 3.27 H (units unknown) (unknown) (unknown) (no date) (unknown) (unknown) Procalcitonin (units unknown) (unknown) (unknown) (no date) (unknown) (unknown) Provider: Hawa Michael (units unknown) (unknown) (unknown) (no date) (unknown) (unknown) Psych: Patient has a well-kept appearance, appropriate affect, mental status (units unknown) (unknown) (unknown) (no date) (unknown) (unknown) Pulse Oximetry 93 100 (units unknown) (unknown) (unknown) (no date) (unknown) (unknown) Pulse Oximetry 94 96 (units unknown) (unknown) (unknown) (no date) (unknown) (unknown) Pulse Oximetry 95 (units unknown) (unknown) (unknown) (no date) (unknown) (unknown) Pulse Oximetry 96 91 (units unknown) (unknown) (unknown) (no date) (unknown) (unknown) Pulse Oximetry 96 99 (units unknown) (unknown) (unknown) (no date) (unknown) (unknown) Pulse Oximetry 96 (units unknown) (unknown) (unknown) (no date) (unknown) (unknown) Pulse Oximetry 97 96 97 (units unknown) (unknown) (unknown) (no date) (unknown) (unknown) Pulse Oximetry 97 97 98 (units unknown) (unknown) (unknown) (no date) (unknown) (unknown) Pulse Oximetry 97 97 (units unknown) (unknown) (unknown) (no date) (unknown) (unknown) Pulse Oximetry 97 (units unknown) (unknown) (unknown) (no date) (unknown) (unknown) Pulse Oximetry 98 97 (units unknown) (unknown) (unknown) (no date) (unknown) (unknown) Pulse Oximetry 98 (units unknown) (unknown) (unknown) (no date) (unknown) (unknown) Pulse Oximetry (units unknown) (unknown) (unknown) (no date) (unknown) (unknown) Pulse Rate 111 H (units unknown) (unknown) (unknown) (no date) (unknown) (unknown) Pulse Rate 114 H 118 H (units unknown) (unknown) (unknown) (no date) (unknown) (unknown) Pulse Rate 154 H (units unknown) (unknown) (unknown) (no date) (unknown) (unknown) Pulse Rate 72 66 (units unknown) (unknown) (unknown) (no date) (unknown) (unknown) Pulse Rate 72 71 (units unknown) (unknown) (unknown) (no date) (unknown) (unknown) Pulse Rate 72 74 (units unknown) (unknown) (unknown) (no date) (unknown) (unknown) Pulse Rate 72 (units unknown) (unknown) (unknown) (no date) (unknown) (unknown) Pulse Rate 73 74 (units unknown) (unknown) (unknown) (no date) (unknown) (unknown) Pulse Rate 73 87 98 H (units unknown) (unknown) (unknown) (no date) (unknown) (unknown) Pulse Rate 73 (units unknown) (unknown) (unknown) (no date) (unknown) (unknown) Pulse Rate 74 104 H 106 H (units unknown) (unknown) (unknown) (no date) (unknown) (unknown) Pulse Rate 75 116 H (units unknown) (unknown) (unknown) (no date) (unknown) (unknown) Pulse Rate 75 70 (units unknown) (unknown) (unknown) (no date) (unknown) (unknown) Pulse Rate 75 74 74 (units unknown) (unknown) (unknown) (no date) (unknown) (unknown) Pulse Rate 75 (units unknown) (unknown) (unknown) (no date) (unknown) (unknown) Pulse Rate 76 (units unknown) (unknown) (unknown) (no date) (unknown) (unknown) Pulse Rate 78 75 (units unknown) (unknown) (unknown) (no date) (unknown) (unknown) Pulse Rate 84 77 (units unknown) (unknown) (unknown) (no date) (unknown) (unknown) Pulse Rate 86 72 (units unknown) (unknown) (unknown) (no date) (unknown) (unknown) Pulse Rate 98 H (units unknown) (unknown) (unknown) (no date) (unknown) (unknown) RBC 5.05 (units unknown) (unknown) (unknown) (no date) (unknown) (unknown) RBC (units unknown) (unknown) (unknown) (no date) (unknown) (unknown) RDW 14.4 (units unknown) (unknown) (unknown) (no date) (unknown) (unknown) RDW (units unknown) (unknown) (unknown) (no date) (unknown) (unknown) RSV (PCR) Negative (units unknown) (unknown) (unknown) (no date) (unknown) (unknown) RSV (PCR) (units unknown) (unknown) (unknown) (no date) (unknown) (unknown) Respiratory Rate 12 25 H (units unknown) (unknown) (unknown) (no date) (unknown) (unknown) Respiratory Rate 13 26 H (units unknown) (unknown) (unknown) (no date) (unknown) (unknown) Respiratory Rate 16 20 (units unknown) (unknown) (unknown) (no date) (unknown) (unknown) Respiratory Rate 17 26 H (units unknown) (unknown) (unknown) (no date) (unknown) (unknown) Respiratory Rate 17 (units unknown) (unknown) (unknown) (no date) (unknown) (unknown) Respiratory Rate 18 32 H (units unknown) (unknown) (unknown) (no date) (unknown) (unknown) Respiratory Rate 18 (units unknown) (unknown) (unknown) (no date) (unknown) (unknown) Respiratory Rate 19 18 (units unknown) (unknown) (unknown) (no date) (unknown) (unknown) Respiratory Rate 19 34 H 39 H (units unknown) (unknown) (unknown) (no date) (unknown) (unknown) Respiratory Rate 19 (units unknown) (unknown) (unknown) (no date) (unknown) (unknown) Respiratory Rate 20 (units unknown) (unknown) (unknown) (no date) (unknown) (unknown) Respiratory Rate 22 20 (units unknown) (unknown) (unknown) (no date) (unknown) (unknown) Respiratory Rate 23 17 16 (units unknown) (unknown) (unknown) (no date) (unknown) (unknown) Respiratory Rate 23 18 (units unknown) (unknown) (unknown) (no date) (unknown) (unknown) Respiratory Rate 24 19 (units unknown) (unknown) (unknown) (no date) (unknown) (unknown) Respiratory Rate 24 23 (units unknown) (unknown) (unknown) (no date) (unknown) (unknown) Respiratory Rate 27 H (units unknown) (unknown) (unknown) (no date) (unknown) (unknown) Respiratory Rate 29 H (units unknown) (unknown) (unknown) (no date) (unknown) (unknown) Respiratory Rate 30 H 24 (units unknown) (unknown) (unknown) (no date) (unknown) (unknown) Respiratory Rate (units unknown) (unknown) (unknown) (no date) (unknown) (unknown) Review of Systems (units unknown) (unknown) (unknown) (no date) (unknown) (unknown) SARS-CoV-2 (PCR) Negative (units unknown) (unknown) (unknown) (no date) (unknown) (unknown) SARS-CoV-2 (PCR) (units unknown) (unknown) (unknown) (no date) (unknown) (unknown) Safety + Behavioral: (units unknown) (unknown) (unknown) (no date) (unknown) (unknown) Signed By: (units unknown) (unknown) (unknown) (no date) (unknown) (unknown) Skin: Warm dry and intact without rashes, ulcerations or petechiae. (units unknown) (unknown) (unknown) (no date) (unknown) (unknown) Smoking Status Smoker, status unknown (units unknown) (unknown) (unknown) (no date) (unknown) (unknown) Sodium 135 L (units unknown) (unknown) (unknown) (no date) (unknown) (unknown) Sodium (units unknown) (unknown) (unknown) (no date) (unknown) (unknown) Substance Use Type does not use (units unknown) (unknown) (unknown) (no date) (unknown) (unknown) Surgical History (Updated 06/16/22 @ 21:27 by Hawa Michael [facility]) (units unknown) (unknown) (unknown) (no date) (unknown) (unknown) Temperature 98.1 F (units unknown) (unknown) (unknown) (no date) (unknown) (unknown) Temperature (units unknown) (unknown) (unknown) (no date) (unknown) (unknown) Time Patient Seen: 15:35 (units unknown) (unknown) (unknown) (no date) (unknown) (unknown) Time Spent With Patient (units unknown) (unknown) (unknown) (no date) (unknown) (unknown) Tobacco + Substance use: (units unknown) (unknown) (unknown) (no date) (unknown) (unknown) Total Bilirubin 2.1 H (units unknown) (unknown) (unknown) (no date) (unknown) (unknown) Total Bilirubin (units unknown) (unknown) (unknown) (no date) (unknown) (unknown) Total Creatine Kinase 53 L (units unknown) (unknown) (unknown) (no date) (unknown) (unknown) Total Creatine Kinase (units unknown) (unknown) (unknown) (no date) (unknown) (unknown) Total Protein 5.8 L (units unknown) (unknown) (unknown) (no date) (unknown) (unknown) Total Protein (units unknown) (unknown) (unknown) (no date) (unknown) (unknown) Troponin I < 0.012 (units unknown) (unknown) (unknown) (no date) (unknown) (unknown) Troponin I (units unknown) (unknown) (unknown) (no date) (unknown) (unknown) Upon admit BP 149/78, tachycardic heart rate 154, tachypneic R 29, O2 saturation (units unknown) (unknown) (unknown) (no date) (unknown) (unknown) Ur Bilirubin Confirm Positive H (units unknown) (unknown) (unknown) (no date) (unknown) (unknown) Ur Bilirubin Confirm (units unknown) (unknown) (unknown) (no date) (unknown) (unknown) Ur Culture Indicated? Specimen cultured (units unknown) (unknown) (unknown) (no date) (unknown) (unknown) Ur Culture Indicated? (units unknown) (unknown) (unknown) (no date) (unknown) (unknown) Ur Leukocyte Esterase Trace H (units unknown) (unknown) (unknown) (no date) (unknown) (unknown) Ur Leukocyte Esterase (units unknown) (unknown) (unknown) (no date) (unknown) (unknown) Ur Specific [place] 1.020 (units unknown) (unknown) (unknown) (no date) (unknown) (unknown) Ur Specific [place] (units unknown) (unknown) (unknown) (no date) (unknown) (unknown) Ur Squamous Epith Cells 1-5 /hpf (units unknown) (unknown) (unknown) (no date) (unknown) (unknown) Ur Squamous Epith Cells (units unknown) (unknown) (unknown) (no date) (unknown) (unknown) Urine Appearance Cloudy (units unknown) (unknown) (unknown) (no date) (unknown) (unknown) Urine Appearance (units unknown) (unknown) (unknown) (no date) (unknown) (unknown) Urine Bacteria None seen (units unknown) (unknown) (unknown) (no date) (unknown) (unknown) Urine Bacteria (units unknown) (unknown) (unknown) (no date) (unknown) (unknown) Urine Bilirubin 3+ H (units unknown) (unknown) (unknown) (no date) (unknown) (unknown) Urine Bilirubin (units unknown) (unknown) (unknown) (no date) (unknown) (unknown) Urine Color Brown (units unknown) (unknown) (unknown) (no date) (unknown) (unknown) Urine Color (units unknown) (unknown) (unknown) (no date) (unknown) (unknown) Urine Glucose (UA) Negative (units unknown) (unknown) (unknown) (no date) (unknown) (unknown) Urine Glucose (UA) (units unknown) (unknown) (unknown) (no date) (unknown) (unknown) Urine Ketones 1+ H (units unknown) (unknown) (unknown) (no date) (unknown) (unknown) Urine Ketones (units unknown) (unknown) (unknown) (no date) (unknown) (unknown) Urine Nitrate Positive H (units unknown) (unknown) (unknown) (no date) (unknown) (unknown) Urine Nitrate (units unknown) (unknown) (unknown) (no date) (unknown) (unknown) Urine Occult Blood Trace-intact (units unknown) (unknown) (unknown) (no date) (unknown) (unknown) Urine Occult Blood (units unknown) (unknown) (unknown) (no date) (unknown) (unknown) Urine Protein 1+ H (units unknown) (unknown) (unknown) (no date) (unknown) (unknown) Urine Protein (units unknown) (unknown) (unknown) (no date) (unknown) (unknown) Urine RBC 10-30/hpf H (units unknown) (unknown) (unknown) (no date) (unknown) (unknown) Urine RBC (units unknown) (unknown) (unknown) (no date) (unknown) (unknown) Urine Urobilinogen 1.0 (units unknown) (unknown) (unknown) (no date) (unknown) (unknown) Urine Urobilinogen (units unknown) (unknown) (unknown) (no date) (unknown) (unknown) Urine WBC 1-5/hpf (units unknown) (unknown) (unknown) (no date) (unknown) (unknown) Urine WBC (units unknown) (unknown) (unknown) (no date) (unknown) (unknown) Urine pH 6.5 (units unknown) (unknown) (unknown) (no date) (unknown) (unknown) Urine pH (units unknown) (unknown) (unknown) (no date) (unknown) (unknown) Vital Signs (units unknown) (unknown) (unknown) (no date) (unknown) (unknown) WBC 9.6 (units unknown) (unknown) (unknown) (no date) (unknown) (unknown) WBC (units unknown) (unknown) (unknown) (no date) (unknown) (unknown) [Embedded Image Not Available] (units unknown) (unknown) (unknown) (no date) (unknown) (unknown) [From Prevnar] and feet x (units unknown) (unknown) (unknown) (no date) (unknown) (unknown) a recent 30 lb weight loss, and night sweats with a shuffling gait x6 weeks. He (units unknown) (unknown) (unknown) (no date) (unknown) (unknown) abnormal. COVID, influenza a/B/RSV negative. Head CT negative. CXR ?Possible (units unknown) (unknown) (unknown) (no date) (unknown) (unknown) after. (units unknown) (unknown) (unknown) (no date) (unknown) (unknown) alcohol intake frequency a few times a month (units unknown) (unknown) (unknown) (no date) (unknown) (unknown) amlodipine 5 mg tablet 5 mg PO DAILY 06/16/22 06/16/22 History (units unknown) (unknown) (unknown) (no date) (unknown) (unknown) apixaban 5 mg tablet (Eliquis) 5 mg PO BID blood thinner 06/16/22 06/16/22 (units unknown) (unknown) (unknown) (no date) (unknown) (unknown) are present in all 4 quadrants without guarding or rebound, no CVA tenderness. (units unknown) (unknown) (unknown) (no date) (unknown) (unknown) at this time, no apparent jaundice, right upper quadrant pain, or fever. (units unknown) (unknown) (unknown) (no date) (unknown) (unknown) attitude thought context and judgment are appropriate for age. (units unknown) (unknown) (unknown) (no date) (unknown) (unknown) cardiology's office due to his significant presentation of cachexia, weakness, (units unknown) (unknown) (unknown) (no date) (unknown) (unknown) clear and mucous membranes are moist. 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 Full range (units unknown) (unknown) (unknown) (no date) (unknown) (unknown) documented. (units unknown) (unknown) (unknown) (no date) (unknown) (unknown) due to his significant presentation of cachexia, weakness, malaise balance (units unknown) (unknown) (unknown) (no date) (unknown) (unknown) dysuria, frequency, urgency, hematuria, bowel changes, constipation, (units unknown) (unknown) (unknown) (no date) (unknown) (unknown) falls, head injury, LOC, fever, body aches, chills, cough, recent exposure to (units unknown) (unknown) (unknown) (no date) (unknown) (unknown) fluticasone propionate 44 44 mcg inhalation DAILY 06/16/22 06/16/22 History (units unknown) (unknown) (unknown) (no date) (unknown) (unknown) gabapentin 300 mg capsule 300 mg PO BID 06/16/22 06/16/22 History (units unknown) (unknown) (unknown) (no date) (unknown) (unknown) greater than left pulmonary effusion. SOFA:2 patient admitted for mild sepsis, (units unknown) (unknown) (unknown) (no date) (unknown) (unknown) historian, stated that 'he came in today by himself because he had black urine (units unknown) (unknown) (unknown) (no date) (unknown) (unknown) illness, abdominal pain, nausea, vomiting, urinary incontinence/retent ion, (units unknown) (unknown) (unknown) (no date) (unknown) (unknown) incontinence, melena, rashes, recent changes to medication, illness, injury, or (units unknown) (unknown) (unknown) (no date) (unknown) (unknown) infiltrates versus inflammatory pulmonary opacities mild to moderate right (units unknown) (unknown) (unknown) (no date) (unknown) (unknown) into the ED by his . Patient demonstrated escalating tachycardia with heart (units unknown) (unknown) (unknown) (no date) (unknown) (unknown) malaise, balance coordination issues, and concerns for neoplastic syndrome with (units unknown) (unknown) (unknown) (no date) (unknown) (unknown) mcg/actuation HFA aerosol inhaler (units unknown) (unknown) (unknown) (no date) (unknown) (unknown) medication reconciliation. Patient denies any pain, and appears is no distress (units unknown) (unknown) (unknown) (no date) (unknown) (unknown) midline, no adenopathy, no thyroid enlargement, nontender, no masses palpated. (units unknown) (unknown) (unknown) (no date) (unknown) (unknown) mild right and retrocardiac opacities Chest CT demonstrated bibasilar (units unknown) (unknown) (unknown) (no date) (unknown) (unknown) negative, BNP 1430. EKG atrial sensed ventricular paced rhythm rate 72, (units unknown) (unknown) (unknown) (no date) (unknown) (unknown) no carotid bruit, no cardiac pulsations present. (units unknown) (unknown) (unknown) (no date) (unknown) (unknown) of motion intact radial and pedal pulses are normal. 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 Gillette (units unknown) (unknown) (unknown) (no date) (unknown) (unknown) pacemaker, and melanoma who was sent over from Dr. Gillette cardiology's office (units unknown) (unknown) (unknown) (no date) (unknown) (unknown) patient's baseline. Due to cognitive impairment unable to obtain HPI, ROS, or (units unknown) (unknown) (unknown) (no date) (unknown) (unknown) pneumococcal 7-valent AdvReac Intermediate swelling Verified 06/16/22 12:46 (units unknown) (unknown) (unknown) (no date) (unknown) (unknown) rates 111-154, and tachypneic respiratory rate in the 20s. (units unknown) (unknown) (unknown) (no date) (unknown) (unknown) retractions, or tachypneic labored (units unknown) (unknown) (unknown) (no date) (unknown) (unknown) tachycardia with heart rates 111-154, and tachypneic respiratory rate in the (units unknown) (unknown) (unknown) (no date) (unknown) (unknown) this morning'. He did not recall seeing Dr. Gillette, unsure if this is the (units unknown) (unknown) (unknown) (no date) (unknown) (unknown) time. (units unknown) (unknown) (unknown) (no date) (unknown) (unknown) to touch intact, no gross deficits noted of cranial nerves. (units unknown) (unknown) (unknown) (no date) (unknown) (unknown) today; this time is exclusive of procedural time. (units unknown) (unknown) (unknown) (no date) (unknown) (unknown) transaminitis, UTI, elevated phosphorus. (units unknown) (unknown) (unknown) (no date) (unknown) (unknown) transaminitis, UTI, encephalopathy. (units unknown) (unknown) (unknown) (no date) (unknown) (unknown) trauma. (units unknown) (unknown) (unknown) (no date) (unknown) (unknown) vision, difficulty swallowing, speech impairment, numbness, tingling, recent (units unknown) (unknown) (unknown) (no date) (unknown) (unknown) was brought into the ED by his . In ED patient demonstrated escalating (units unknown) (unknown) (unknown) (no date) (unknown) (unknown) weight loss, and night sweats with a shuffling gait x6 weeks. He was brought (units unknown) (unknown) (unknown) (no date) (unknown) (unknown) wheezes, rhonchi, or rales. (units unknown) (unknown) Result panel 216 (unknown) (no date) (unknown) (unknown) (no value) (units unknown) (unknown) (unknown) (no date) (unknown) (unknown) (Flovent HFA) (units unknown) (unknown) (unknown) (no date) (unknown) (unknown) (past 8 hours): (units unknown) (unknown) (unknown) (no date) (unknown) (unknown) [id number] (units unknown) (unknown) (unknown) (no date) (unknown) (unknown) 06/16/22 06/16/22 06/16/22 (units unknown) (unknown) (unknown) (no date) (unknown) (unknown) 06/16/22 06/16/22 (units unknown) (unknown) (unknown) (no date) (unknown) (unknown) 06/16/22 12:35 (units unknown) (unknown) (unknown) (no date) (unknown) (unknown) 06/16/22 (units unknown) (unknown) (unknown) (no date) (unknown) (unknown) 1. Sepsis without septic shock (units unknown) (unknown) (unknown) (no date) (unknown) (unknown) 12:35 12:35 12:35 (units unknown) (unknown) (unknown) (no date) (unknown) (unknown) 13:15 06/16/22 (units unknown) (unknown) (unknown) (no date) (unknown) (unknown) 13:30 (units unknown) (unknown) (unknown) (no date) (unknown) (unknown) 13:45 06/16/22 (units unknown) (unknown) (unknown) (no date) (unknown) (unknown) 13:46 06/16/22 (units unknown) (unknown) (unknown) (no date) (unknown) (unknown) 13:46 (units unknown) (unknown) (unknown) (no date) (unknown) (unknown) 14:00 06/16/22 (units unknown) (unknown) (unknown) (no date) (unknown) (unknown) 14:24 (units unknown) (unknown) (unknown) (no date) (unknown) (unknown) 14:30 06/16/22 (units unknown) (unknown) (unknown) (no date) (unknown) (unknown) 14:45 06/16/22 (units unknown) (unknown) (unknown) (no date) (unknown) (unknown) 15:00 (units unknown) (unknown) (unknown) (no date) (unknown) (unknown) 15:15 06/16/22 (units unknown) (unknown) (unknown) (no date) (unknown) (unknown) 15:30 06/16/22 (units unknown) (unknown) (unknown) (no date) (unknown) (unknown) 15:30 17:55 (units unknown) (unknown) (unknown) (no date) (unknown) (unknown) 15:34 06/16/22 (units unknown) (unknown) (unknown) (no date) (unknown) (unknown) 15:34 (units unknown) (unknown) (unknown) (no date) (unknown) (unknown) 15:45 06/16/22 (units unknown) (unknown) (unknown) (no date) (unknown) (unknown) 15:45 (units unknown) (unknown) (unknown) (no date) (unknown) (unknown) 16:00 06/16/22 (units unknown) (unknown) (unknown) (no date) (unknown) (unknown) 16:15 06/16/22 (units unknown) (unknown) (unknown) (no date) (unknown) (unknown) 16:15 (units unknown) (unknown) (unknown) (no date) (unknown) (unknown) 16:30 06/16/22 (units unknown) (unknown) (unknown) (no date) (unknown) (unknown) 16:31 06/16/22 (units unknown) (unknown) (unknown) (no date) (unknown) (unknown) 16:31 (units unknown) (unknown) (unknown) (no date) (unknown) (unknown) 16:45 06/16/22 (units unknown) (unknown) (unknown) (no date) (unknown) (unknown) 17.6, INR 1.5, PTT 38. Sodium 135, BUN 34, glucose 146, calcium 8.1, magnesium (units unknown) (unknown) (unknown) (no date) (unknown) (unknown) 17:00 06/16/22 (units unknown) (unknown) (unknown) (no date) (unknown) (unknown) 17:00 (units unknown) (unknown) (unknown) (no date) (unknown) (unknown) 17:15 06/16/22 (units unknown) (unknown) (unknown) (no date) (unknown) (unknown) 17:15 (units unknown) (unknown) (unknown) (no date) (unknown) (unknown) 17:30 06/16/22 (units unknown) (unknown) (unknown) (no date) (unknown) (unknown) 17:45 (units unknown) (unknown) (unknown) (no date) (unknown) (unknown) 17:46 06/16/22 (units unknown) (unknown) (unknown) (no date) (unknown) (unknown) 17:59 (units unknown) (unknown) (unknown) (no date) (unknown) (unknown) 18:00 06/16/22 (units unknown) (unknown) (unknown) (no date) (unknown) (unknown) 18:01 06/16/22 (units unknown) (unknown) (unknown) (no date) (unknown) (unknown) 18:15 06/16/22 (units unknown) (unknown) (unknown) (no date) (unknown) (unknown) 18:15 (units unknown) (unknown) (unknown) (no date) (unknown) (unknown) 18:30 06/16/22 (units unknown) (unknown) (unknown) (no date) (unknown) (unknown) 18:30 (units unknown) (unknown) (unknown) (no date) (unknown) (unknown) 18:45 06/16/22 (units unknown) (unknown) (unknown) (no date) (unknown) (unknown) 19:00 06/16/22 (units unknown) (unknown) (unknown) (no date) (unknown) (unknown) 19:00 (units unknown) (unknown) (unknown) (no date) (unknown) (unknown) 19:15 06/16/22 (units unknown) (unknown) (unknown) (no date) (unknown) (unknown) 19:15 (units unknown) (unknown) (unknown) (no date) (unknown) (unknown) 19:30 06/16/22 (units unknown) (unknown) (unknown) (no date) (unknown) (unknown) 19:45 06/16/22 (units unknown) (unknown) (unknown) (no date) (unknown) (unknown) 19:45 (units unknown) (unknown) (unknown) (no date) (unknown) (unknown) 2.6, phosphorus 4.1, bili 2.1, AST 61, ALT 63, alk-phos 428, total protein 5.8, (units unknown) (unknown) (unknown) (no date) (unknown) (unknown) 20:00 06/16/22 (units unknown) (unknown) (unknown) (no date) (unknown) (unknown) 20:00 (units unknown) (unknown) (unknown) (no date) (unknown) (unknown) 20:15 06/16/22 (units unknown) (unknown) (unknown) (no date) (unknown) (unknown) 20:30 06/16/22 (units unknown) (unknown) (unknown) (no date) (unknown) (unknown) 20:30 (units unknown) (unknown) (unknown) (no date) (unknown) (unknown) 20:45 06/16/22 (units unknown) (unknown) (unknown) (no date) (unknown) (unknown) 20:46 06/16/22 (units unknown) (unknown) (unknown) (no date) (unknown) (unknown) 20:46 (units unknown) (unknown) (unknown) (no date) (unknown) (unknown) 20:55 (units unknown) (unknown) (unknown) (no date) (unknown) (unknown) 20s. During admit interview patient is pleasantly confused orientated to self (units unknown) (unknown) (unknown) (no date) (unknown) (unknown) 20s. (units unknown) (unknown) (unknown) (no date) (unknown) (unknown) 34, glucose 146, calcium 8.1, magnesium 2.6, phosphorus 4.1, bili 2.1, AST 61, (units unknown) (unknown) (unknown) (no date) (unknown) (unknown) 4 mos (units unknown) (unknown) (unknown) (no date) (unknown) (unknown) 4.3, repeat 2.7, procalcitonin 3.27, PT 17.6, INR 1.5, PTT 38. Sodium 135, BUN (units unknown) (unknown) (unknown) (no date) (unknown) (unknown) 98% on room air. Patient did get up and ambulate to the restroom w/MA without (units unknown) (unknown) (unknown) (no date) (unknown) (unknown) 98% on room air. Patient has no WBC, but left shiftneut 8200, initial lactate (units unknown) (unknown) (unknown) (no date) (unknown) (unknown) ALT 63 H (units unknown) (unknown) (unknown) (no date) (unknown) (unknown) ALT 63, alk-phos 428, total protein 5.8, albumin 3.1, CK 53, initial troponin (units unknown) (unknown) (unknown) (no date) (unknown) (unknown) ALT (units unknown) (unknown) (unknown) (no date) (unknown) (unknown) APTT 38 H (units unknown) (unknown) (unknown) (no date) (unknown) (unknown) APTT (units unknown) (unknown) (unknown) (no date) (unknown) (unknown) AST 61 H (units unknown) (unknown) (unknown) (no date) (unknown) (unknown) AST (units unknown) (unknown) (unknown) (no date) (unknown) (unknown) Abdomen: Soft nontender, negative for organomegaly, or masses. Bowel sounds (units unknown) (unknown) (unknown) (no date) (unknown) (unknown) Age/Sex: 86 / M (units unknown) (unknown) (unknown) (no date) (unknown) (unknown) Albumin 3.1 L (units unknown) (unknown) (unknown) (no date) (unknown) (unknown) Albumin (units unknown) (unknown) (unknown) (no date) (unknown) (unknown) Albumin/Globulin Ratio 1.1 (units unknown) (unknown) (unknown) (no date) (unknown) (unknown) Albumin/Globulin Ratio (units unknown) (unknown) (unknown) (no date) (unknown) (unknown) Alkaline Phosphatase 428 H (units unknown) (unknown) (unknown) (no date) (unknown) (unknown) Alkaline Phosphatase (units unknown) (unknown) (unknown) (no date) (unknown) (unknown) Allergies (units unknown) (unknown) (unknown) (no date) (unknown) (unknown) Allergy/AdvReac Type Severity Reaction Status Date / Time (units unknown) (unknown) (unknown) (no date) (unknown) (unknown) Assessment + Plan narrative: (units unknown) (unknown) (unknown) (no date) (unknown) (unknown) Assessment + Plan (units unknown) (unknown) (unknown) (no date) (unknown) (unknown) Asthma (units unknown) (unknown) (unknown) (no date) (unknown) (unknown) Atrial fibrillation (units unknown) (unknown) (unknown) (no date) (unknown) (unknown) BUN 34 H (units unknown) (unknown) (unknown) (no date) (unknown) (unknown) BUN (units unknown) (unknown) (unknown) (no date) (unknown) (unknown) BUN/Creatinine Ratio 34.3 H (units unknown) (unknown) (unknown) (no date) (unknown) (unknown) BUN/Creatinine Ratio (units unknown) (unknown) (unknown) (no date) (unknown) (unknown) Baso # (Auto) 100 (units unknown) (unknown) (unknown) (no date) (unknown) (unknown) Baso # (Auto) (units unknown) (unknown) (unknown) (no date) (unknown) (unknown) Baso % (Auto) 0.8 (units unknown) (unknown) (unknown) (no date) (unknown) (unknown) Baso % (Auto) (units unknown) (unknown) (unknown) (no date) (unknown) (unknown) Blood Pressure 141/57 H (units unknown) (unknown) (unknown) (no date) (unknown) (unknown) Blood Pressure 141/73 H (units unknown) (unknown) (unknown) (no date) (unknown) (unknown) Blood Pressure 142/65 H 156/70 H (units unknown) (unknown) (unknown) (no date) (unknown) (unknown) Blood Pressure 142/67 H (units unknown) (unknown) (unknown) (no date) (unknown) (unknown) Blood Pressure 143/67 H (units unknown) (unknown) (unknown) (no date) (unknown) (unknown) Blood Pressure 145/69 H (units unknown) (unknown) (unknown) (no date) (unknown) (unknown) Blood Pressure 146/69 H (units unknown) (unknown) (unknown) (no date) (unknown) (unknown) Blood Pressure 147/71 H 150/72 H (units unknown) (unknown) (unknown) (no date) (unknown) (unknown) Blood Pressure 149/68 H 130/59 L (units unknown) (unknown) (unknown) (no date) (unknown) (unknown) Blood Pressure 149/78 H 155/70 H (units unknown) (unknown) (unknown) (no date) (unknown) (unknown) Blood Pressure 150/73 H (units unknown) (unknown) (unknown) (no date) (unknown) (unknown) Blood Pressure 151/72 H (units unknown) (unknown) (unknown) (no date) (unknown) (unknown) Blood Pressure 154/73 H (units unknown) (unknown) (unknown) (no date) (unknown) (unknown) Blood Pressure 156/72 H 151/72 H (units unknown) (unknown) (unknown) (no date) (unknown) (unknown) Blood Pressure 162/114 H (units unknown) (unknown) (unknown) (no date) (unknown) (unknown) Blood Pressure 164/94 H 164/96 H (units unknown) (unknown) (unknown) (no date) (unknown) (unknown) Blood Pressure 179/74 H 179/94 H (units unknown) (unknown) (unknown) (no date) (unknown) (unknown) Blood Pressure 186/112 H 169/75 H (units unknown) (unknown) (unknown) (no date) (unknown) (unknown) Blood Pressure (units unknown) (unknown) (unknown) (no date) (unknown) (unknown) CK-MB (CK-2) Rel Index TNP (units unknown) (unknown) (unknown) (no date) (unknown) (unknown) CK-MB (CK-2) Rel Index (units unknown) (unknown) (unknown) (no date) (unknown) (unknown) CK-MB (CK-2) TNP (units unknown) (unknown) (unknown) (no date) (unknown) (unknown) CK-MB (CK-2) (units unknown) (unknown) (unknown) (no date) (unknown) (unknown) Calcium 8.1 L (units unknown) (unknown) (unknown) (no date) (unknown) (unknown) Calcium (units unknown) (unknown) (unknown) (no date) (unknown) (unknown) Carbon Dioxide 28 (units unknown) (unknown) (unknown) (no date) (unknown) (unknown) Carbon Dioxide (units unknown) (unknown) (unknown) (no date) (unknown) (unknown) Cardio: regular rate and rhythm without murmur, rubs, or gallops, no carotid (units unknown) (unknown) (unknown) (no date) (unknown) (unknown) Chest: Equal expansion, positive kyphoscoliosis, no nasal flaring, retractions, (units unknown) (unknown) (unknown) (no date) (unknown) (unknown) Chief complaint: Pain near pacemaker (units unknown) (unknown) (unknown) (no date) (unknown) (unknown) Chloride 99 (units unknown) (unknown) (unknown) (no date) (unknown) (unknown) Chloride (units unknown) (unknown) (unknown) (no date) (unknown) (unknown) Chronic anticoagulation (units unknown) (unknown) (unknown) (no date) (unknown) (unknown) Creatinine 0.99 (units unknown) (unknown) (unknown) (no date) (unknown) (unknown) Creatinine (units unknown) (unknown) (unknown) (no date) (unknown) (unknown) Critical Care time: (units unknown) (unknown) (unknown) (no date) (unknown) (unknown) : 1935 Acct:[id number] (units unknown) (unknown) (unknown) (no date) (unknown) (unknown) Date Patient Seen: 06/16/22 (units unknown) (unknown) (unknown) (no date) (unknown) (unknown) Date of Service: 06/16/22 (units unknown) (unknown) (unknown) (no date) (unknown) (unknown) Yoseph Cardoso is a 86-year-old male with a history of atrial fibrillation, with (units unknown) (unknown) (unknown) (no date) (unknown) (unknown) Due to patient's cognitive impairment/encephal opathy unable to obtain HPI, ROS, (units unknown) (unknown) (unknown) (no date) (unknown) (unknown) Environment (units unknown) (unknown) (unknown) (no date) (unknown) (unknown) Eos # (Auto) 0 (units unknown) (unknown) (unknown) (no date) (unknown) (unknown) Eos # (Auto) (units unknown) (unknown) (unknown) (no date) (unknown) (unknown) Eos % (Auto) 0.1 L (units unknown) (unknown) (unknown) (no date) (unknown) (unknown) Eos % (Auto) (units unknown) (unknown) (unknown) (no date) (unknown) (unknown) Essential hypertension (units unknown) (unknown) (unknown) (no date) (unknown) (unknown) Estimated GFR > 60 (units unknown) (unknown) (unknown) (no date) (unknown) (unknown) Estimated GFR (units unknown) (unknown) (unknown) (no date) (unknown) (unknown) Exam Narrative: (units unknown) (unknown) (unknown) (no date) (unknown) (unknown) Exam (units unknown) (unknown) (unknown) (no date) (unknown) (unknown) Family + Social History (units unknown) (unknown) (unknown) (no date) (unknown) (unknown) Family History (units unknown) (unknown) (unknown) (no date) (unknown) (unknown) Father Diabetes mellitus (units unknown) (unknown) (unknown) (no date) (unknown) (unknown) Feels Safe in Current Yes, patient lives at home with his . (units unknown) (unknown) (unknown) (no date) (unknown) (unknown) Full range of motion intact radial and pedal pulses are normal. (units unknown) (unknown) (unknown) (no date) (unknown) (unknown) General: Patient is a pleasantly confused cachectic, frail, elderly male, in no (units unknown) (unknown) (unknown) (no date) (unknown) (unknown) Globulin 2.7 (units unknown) (unknown) (unknown) (no date) (unknown) (unknown) Globulin (units unknown) (unknown) (unknown) (no date) (unknown) (unknown) Glucose 146 H (units unknown) (unknown) (unknown) (no date) (unknown) (unknown) Glucose (units unknown) (unknown) (unknown) (no date) (unknown) (unknown) HEENT: Normocephalic, atraumatic, extraocular muscles intact, oral pharynx is (units unknown) (unknown) (unknown) (no date) (unknown) (unknown) Hct 46.6 (units unknown) (unknown) (unknown) (no date) (unknown) (unknown) Hct (units unknown) (unknown) (unknown) (no date) (unknown) (unknown) Head CT negative. CXR ?Possible mild right and retrocardiac opacities Chest CT (units unknown) (unknown) (unknown) (no date) (unknown) (unknown) Hgb 15.4 (units unknown) (unknown) (unknown) (no date) (unknown) (unknown) Hgb (units unknown) (unknown) (unknown) (no date) (unknown) (unknown) History + Physical Report (units unknown) (unknown) (unknown) (no date) (unknown) (unknown) History of Present Illness (units unknown) (unknown) (unknown) (no date) (unknown) (unknown) History of melanoma (units unknown) (unknown) (unknown) (no date) (unknown) (unknown) History of permanent cardiac pacemaker placement (units unknown) (unknown) (unknown) (no date) (unknown) (unknown) History (units unknown) (unknown) (unknown) (no date) (unknown) (unknown) Home Medications and Allergies (units unknown) (unknown) (unknown) (no date) (unknown) (unknown) Home Medications (units unknown) (unknown) (unknown) (no date) (unknown) (unknown) I spent a total of [] minutes of critical care time on this patient's care (units unknown) (unknown) (unknown) (no date) (unknown) (unknown) INR 1.5 H (units unknown) (unknown) (unknown) (no date) (unknown) (unknown) INR (units unknown) (unknown) (unknown) (no date) (unknown) (unknown) Influenza A (RT-PCR) Flu a negative (units unknown) (unknown) (unknown) (no date) (unknown) (unknown) Influenza A (RT-PCR) (units unknown) (unknown) (unknown) (no date) (unknown) (unknown) Influenza B (RT-PCR) Flu b negative (units unknown) (unknown) (unknown) (no date) (unknown) (unknown) Influenza B (RT-PCR) (units unknown) (unknown) (unknown) (no date) (unknown) (unknown) [address] [address] (units unknown) (unknown) (unknown) (no date) (unknown) (unknown) Laboratory Results - last 24 hr (units unknown) (unknown) (unknown) (no date) (unknown) (unknown) Labs (units unknown) (unknown) (unknown) (no date) (unknown) (unknown) Labs: (units unknown) (unknown) (unknown) (no date) (unknown) (unknown) Lactate 2.7 H (units unknown) (unknown) (unknown) (no date) (unknown) (unknown) Lactate 4.3 H* (units unknown) (unknown) (unknown) (no date) (unknown) (unknown) Lactate (units unknown) (unknown) (unknown) (no date) (unknown) (unknown) Lipase 45 (units unknown) (unknown) (unknown) (no date) (unknown) (unknown) Lipase (units unknown) (unknown) (unknown) (no date) (unknown) (unknown) Lungs: Auscultation of all lung troy are clear without adventitious sounds, (units unknown) (unknown) (unknown) (no date) (unknown) (unknown) Lymph # (Auto) 400 L (units unknown) (unknown) (unknown) (no date) (unknown) (unknown) Lymph # (Auto) (units unknown) (unknown) (unknown) (no date) (unknown) (unknown) Lymph % (Auto) 4.6 L (units unknown) (unknown) (unknown) (no date) (unknown) (unknown) Lymph % (Auto) (units unknown) (unknown) (unknown) (no date) (unknown) (unknown) MCH 30.4 (units unknown) (unknown) (unknown) (no date) (unknown) (unknown) MCH (units unknown) (unknown) (unknown) (no date) (unknown) (unknown) MCHC 33.0 (units unknown) (unknown) (unknown) (no date) (unknown) (unknown) MCHC (units unknown) (unknown) (unknown) (no date) (unknown) (unknown) MCV 92.4 (units unknown) (unknown) (unknown) (no date) (unknown) (unknown) MCV (units unknown) (unknown) (unknown) (no date) (unknown) (unknown) Magnesium 2.6 H (units unknown) (unknown) (unknown) (no date) (unknown) (unknown) Magnesium (units unknown) (unknown) (unknown) (no date) (unknown) (unknown) Medical History (Updated 06/17/22 @ 00:55 [facility] (units unknown) (unknown) (unknown) (no date) (unknown) (unknown) Medication Instructions Recorded Confirmed Type (units unknown) (unknown) (unknown) (no date) (unknown) (unknown) Meds (units unknown) (unknown) (unknown) (no date) (unknown) (unknown) [place] # (Auto) 900 (units unknown) (unknown) (unknown) (no date) (unknown) (unknown) [place] # (Auto) (units unknown) (unknown) (unknown) (no date) (unknown) (unknown) [place] % (Auto) 9.4 (units unknown) (unknown) (unknown) (no date) (unknown) (unknown) [place] % (Auto) (units unknown) (unknown) (unknown) (no date) (unknown) (unknown) Mother No problems noted. (units unknown) (unknown) (unknown) (no date) (unknown) (unknown) Musculoskeletal: Diffuse but equal throughout all extremity muscle wasting, no (units unknown) (unknown) (unknown) (no date) (unknown) (unknown) NT-Pro-B Natriuret Pep 1430 H (units unknown) (unknown) (unknown) (no date) (unknown) (unknown) NT-Pro-B Natriuret Pep (units unknown) (unknown) (unknown) (no date) (unknown) (unknown) Narrative (units unknown) (unknown) (unknown) (no date) (unknown) (unknown) Narrative: (units unknown) (unknown) (unknown) (no date) (unknown) (unknown) Negative Fever, jaundice, right upper quadrant pain (units unknown) (unknown) (unknown) (no date) (unknown) (unknown) Negative for JVD (units unknown) (unknown) (unknown) (no date) (unknown) (unknown) Neuro: Alert and orientated x2 Person + Place , moves all extremities, (units unknown) (unknown) (unknown) (no date) (unknown) (unknown) Neut # (Auto) 8200 H (units unknown) (unknown) (unknown) (no date) (unknown) (unknown) Neut # (Auto) (units unknown) (unknown) (unknown) (no date) (unknown) (unknown) Neut % (Auto) 85.1 H (units unknown) (unknown) (unknown) (no date) (unknown) (unknown) Neut % (Auto) (units unknown) (unknown) (unknown) (no date) (unknown) (unknown) Objective (units unknown) (unknown) (unknown) (no date) (unknown) (unknown) Oxygen Delivery Method Room Air (units unknown) (unknown) (unknown) (no date) (unknown) (unknown) Oxygen Delivery Method (units unknown) (unknown) (unknown) (no date) (unknown) (unknown) PT 17.6 H (units unknown) (unknown) (unknown) (no date) (unknown) (unknown) PT (units unknown) (unknown) (unknown) (no date) (unknown) (unknown) Pacemaker (units unknown) (unknown) (unknown) (no date) (unknown) (unknown) Patient History (units unknown) (unknown) (unknown) (no date) (unknown) (unknown) Patient: Yoseph Cardoso MR#: [id number] (units unknown) (unknown) (unknown) (no date) (unknown) (unknown) Phosphorus 4.1 H (units unknown) (unknown) (unknown) (no date) (unknown) (unknown) Phosphorus (units unknown) (unknown) (unknown) (no date) (unknown) (unknown) Plt Count 222 (units unknown) (unknown) (unknown) (no date) (unknown) (unknown) Plt Count (units unknown) (unknown) (unknown) (no date) (unknown) (unknown) Potassium 4.8 (units unknown) (unknown) (unknown) (no date) (unknown) (unknown) Potassium (units unknown) (unknown) (unknown) (no date) (unknown) (unknown) Procalcitonin 3.27 H (units unknown) (unknown) (unknown) (no date) (unknown) (unknown) Procalcitonin (units unknown) (unknown) (unknown) (no date) (unknown) (unknown) Provider: Hawa Michael (units unknown) (unknown) (unknown) (no date) (unknown) (unknown) Psych: Patient has a well-kept appearance, pleasant affect, mental status (units unknown) (unknown) (unknown) (no date) (unknown) (unknown) Pulse Oximetry 93 100 (units unknown) (unknown) (unknown) (no date) (unknown) (unknown) Pulse Oximetry 94 96 (units unknown) (unknown) (unknown) (no date) (unknown) (unknown) Pulse Oximetry 95 (units unknown) (unknown) (unknown) (no date) (unknown) (unknown) Pulse Oximetry 96 91 (units unknown) (unknown) (unknown) (no date) (unknown) (unknown) Pulse Oximetry 96 99 (units unknown) (unknown) (unknown) (no date) (unknown) (unknown) Pulse Oximetry 96 (units unknown) (unknown) (unknown) (no date) (unknown) (unknown) Pulse Oximetry 97 96 97 (units unknown) (unknown) (unknown) (no date) (unknown) (unknown) Pulse Oximetry 97 97 98 (units unknown) (unknown) (unknown) (no date) (unknown) (unknown) Pulse Oximetry 97 97 (units unknown) (unknown) (unknown) (no date) (unknown) (unknown) Pulse Oximetry 97 (units unknown) (unknown) (unknown) (no date) (unknown) (unknown) Pulse Oximetry 98 97 (units unknown) (unknown) (unknown) (no date) (unknown) (unknown) Pulse Oximetry 98 (units unknown) (unknown) (unknown) (no date) (unknown) (unknown) Pulse Oximetry (units unknown) (unknown) (unknown) (no date) (unknown) (unknown) Pulse Rate 111 H (units unknown) (unknown) (unknown) (no date) (unknown) (unknown) Pulse Rate 114 H 118 H (units unknown) (unknown) (unknown) (no date) (unknown) (unknown) Pulse Rate 154 H (units unknown) (unknown) (unknown) (no date) (unknown) (unknown) Pulse Rate 72 66 (units unknown) (unknown) (unknown) (no date) (unknown) (unknown) Pulse Rate 72 71 (units unknown) (unknown) (unknown) (no date) (unknown) (unknown) Pulse Rate 72 74 (units unknown) (unknown) (unknown) (no date) (unknown) (unknown) Pulse Rate 72 (units unknown) (unknown) (unknown) (no date) (unknown) (unknown) Pulse Rate 73 74 (units unknown) (unknown) (unknown) (no date) (unknown) (unknown) Pulse Rate 73 87 98 H (units unknown) (unknown) (unknown) (no date) (unknown) (unknown) Pulse Rate 73 (units unknown) (unknown) (unknown) (no date) (unknown) (unknown) Pulse Rate 74 104 H 106 H (units unknown) (unknown) (unknown) (no date) (unknown) (unknown) Pulse Rate 75 116 H (units unknown) (unknown) (unknown) (no date) (unknown) (unknown) Pulse Rate 75 70 (units unknown) (unknown) (unknown) (no date) (unknown) (unknown) Pulse Rate 75 74 74 (units unknown) (unknown) (unknown) (no date) (unknown) (unknown) Pulse Rate 75 (units unknown) (unknown) (unknown) (no date) (unknown) (unknown) Pulse Rate 76 (units unknown) (unknown) (unknown) (no date) (unknown) (unknown) Pulse Rate 78 75 (units unknown) (unknown) (unknown) (no date) (unknown) (unknown) Pulse Rate 84 77 (units unknown) (unknown) (unknown) (no date) (unknown) (unknown) Pulse Rate 86 72 (units unknown) (unknown) (unknown) (no date) (unknown) (unknown) Pulse Rate 98 H (units unknown) (unknown) (unknown) (no date) (unknown) (unknown) RBC 5.05 (units unknown) (unknown) (unknown) (no date) (unknown) (unknown) RBC (units unknown) (unknown) (unknown) (no date) (unknown) (unknown) RDW 14.4 (units unknown) (unknown) (unknown) (no date) (unknown) (unknown) RDW (units unknown) (unknown) (unknown) (no date) (unknown) (unknown) RSV (PCR) Negative (units unknown) (unknown) (unknown) (no date) (unknown) (unknown) RSV (PCR) (units unknown) (unknown) (unknown) (no date) (unknown) (unknown) Respiratory Rate 12 25 H (units unknown) (unknown) (unknown) (no date) (unknown) (unknown) Respiratory Rate 13 26 H (units unknown) (unknown) (unknown) (no date) (unknown) (unknown) Respiratory Rate 16 20 (units unknown) (unknown) (unknown) (no date) (unknown) (unknown) Respiratory Rate 17 26 H (units unknown) (unknown) (unknown) (no date) (unknown) (unknown) Respiratory Rate 17 (units unknown) (unknown) (unknown) (no date) (unknown) (unknown) Respiratory Rate 18 32 H (units unknown) (unknown) (unknown) (no date) (unknown) (unknown) Respiratory Rate 18 (units unknown) (unknown) (unknown) (no date) (unknown) (unknown) Respiratory Rate 19 18 (units unknown) (unknown) (unknown) (no date) (unknown) (unknown) Respiratory Rate 19 34 H 39 H (units unknown) (unknown) (unknown) (no date) (unknown) (unknown) Respiratory Rate 19 (units unknown) (unknown) (unknown) (no date) (unknown) (unknown) Respiratory Rate 20 (units unknown) (unknown) (unknown) (no date) (unknown) (unknown) Respiratory Rate 22 20 (units unknown) (unknown) (unknown) (no date) (unknown) (unknown) Respiratory Rate 23 17 16 (units unknown) (unknown) (unknown) (no date) (unknown) (unknown) Respiratory Rate 23 18 (units unknown) (unknown) (unknown) (no date) (unknown) (unknown) Respiratory Rate 24 19 (units unknown) (unknown) (unknown) (no date) (unknown) (unknown) Respiratory Rate 24 23 (units unknown) (unknown) (unknown) (no date) (unknown) (unknown) Respiratory Rate 27 H (units unknown) (unknown) (unknown) (no date) (unknown) (unknown) Respiratory Rate 29 H (units unknown) (unknown) (unknown) (no date) (unknown) (unknown) Respiratory Rate 30 H 24 (units unknown) (unknown) (unknown) (no date) (unknown) (unknown) Respiratory Rate (units unknown) (unknown) (unknown) (no date) (unknown) (unknown) Review of Systems (units unknown) (unknown) (unknown) (no date) (unknown) (unknown) SARS-CoV-2 (PCR) Negative (units unknown) (unknown) (unknown) (no date) (unknown) (unknown) SARS-CoV-2 (PCR) (units unknown) (unknown) (unknown) (no date) (unknown) (unknown) Safety + Behavioral: (units unknown) (unknown) (unknown) (no date) (unknown) (unknown) Signed By: (units unknown) (unknown) (unknown) (no date) (unknown) (unknown) Skin: Warm Very dry, poor turgor, appears significantly dehydrated and wasting (units unknown) (unknown) (unknown) (no date) (unknown) (unknown) Smoking Status never (units unknown) (unknown) (unknown) (no date) (unknown) (unknown) Sodium 135 L (units unknown) (unknown) (unknown) (no date) (unknown) (unknown) Sodium (units unknown) (unknown) (unknown) (no date) (unknown) (unknown) Substance Use Type does not use (units unknown) (unknown) (unknown) (no date) (unknown) (unknown) Surgical History (Updated 06/16/22 @ 21:27 by Hawa Michael [employer]PER[employer]-) (units unknown) (unknown) (unknown) (no date) (unknown) (unknown) Temperature 98.1 F (units unknown) (unknown) (unknown) (no date) (unknown) (unknown) Temperature (units unknown) (unknown) (unknown) (no date) (unknown) (unknown) Time Patient Seen: 15:35 (units unknown) (unknown) (unknown) (no date) (unknown) (unknown) Time Spent With Patient (units unknown) (unknown) (unknown) (no date) (unknown) (unknown) Tobacco + Substance use: (units unknown) (unknown) (unknown) (no date) (unknown) (unknown) Total Bilirubin 2.1 H (units unknown) (unknown) (unknown) (no date) (unknown) (unknown) Total Bilirubin (units unknown) (unknown) (unknown) (no date) (unknown) (unknown) Total Creatine Kinase 53 L (units unknown) (unknown) (unknown) (no date) (unknown) (unknown) Total Creatine Kinase (units unknown) (unknown) (unknown) (no date) (unknown) (unknown) Total Protein 5.8 L (units unknown) (unknown) (unknown) (no date) (unknown) (unknown) Total Protein (units unknown) (unknown) (unknown) (no date) (unknown) (unknown) Troponin I < 0.012 (units unknown) (unknown) (unknown) (no date) (unknown) (unknown) Troponin I (units unknown) (unknown) (unknown) (no date) (unknown) (unknown) Upon admit BP 149/78, tachycardic heart rate 154, tachypneic R 29, O2 saturation (units unknown) (unknown) (unknown) (no date) (unknown) (unknown) Ur Bilirubin Confirm Positive H (units unknown) (unknown) (unknown) (no date) (unknown) (unknown) Ur Bilirubin Confirm (units unknown) (unknown) (unknown) (no date) (unknown) (unknown) Ur Culture Indicated? Specimen cultured (units unknown) (unknown) (unknown) (no date) (unknown) (unknown) Ur Culture Indicated? (units unknown) (unknown) (unknown) (no date) (unknown) (unknown) Ur Leukocyte Esterase Trace H (units unknown) (unknown) (unknown) (no date) (unknown) (unknown) Ur Leukocyte Esterase (units unknown) (unknown) (unknown) (no date) (unknown) (unknown) Ur Specific [place] 1.020 (units unknown) (unknown) (unknown) (no date) (unknown) (unknown) Ur Specific [place] (units unknown) (unknown) (unknown) (no date) (unknown) (unknown) Ur Squamous Epith Cells 1-5 /hpf (units unknown) (unknown) (unknown) (no date) (unknown) (unknown) Ur Squamous Epith Cells (units unknown) (unknown) (unknown) (no date) (unknown) (unknown) Urine Appearance Cloudy (units unknown) (unknown) (unknown) (no date) (unknown) (unknown) Urine Appearance (units unknown) (unknown) (unknown) (no date) (unknown) (unknown) Urine Bacteria None seen (units unknown) (unknown) (unknown) (no date) (unknown) (unknown) Urine Bacteria (units unknown) (unknown) (unknown) (no date) (unknown) (unknown) Urine Bilirubin 3+ H (units unknown) (unknown) (unknown) (no date) (unknown) (unknown) Urine Bilirubin (units unknown) (unknown) (unknown) (no date) (unknown) (unknown) Urine Color Brown (units unknown) (unknown) (unknown) (no date) (unknown) (unknown) Urine Color (units unknown) (unknown) (unknown) (no date) (unknown) (unknown) Urine Glucose (UA) Negative (units unknown) (unknown) (unknown) (no date) (unknown) (unknown) Urine Glucose (UA) (units unknown) (unknown) (unknown) (no date) (unknown) (unknown) Urine Ketones 1+ H (units unknown) (unknown) (unknown) (no date) (unknown) (unknown) Urine Ketones (units unknown) (unknown) (unknown) (no date) (unknown) (unknown) Urine Nitrate Positive H (units unknown) (unknown) (unknown) (no date) (unknown) (unknown) Urine Nitrate (units unknown) (unknown) (unknown) (no date) (unknown) (unknown) Urine Occult Blood Trace-intact (units unknown) (unknown) (unknown) (no date) (unknown) (unknown) Urine Occult Blood (units unknown) (unknown) (unknown) (no date) (unknown) (unknown) Urine Protein 1+ H (units unknown) (unknown) (unknown) (no date) (unknown) (unknown) Urine Protein (units unknown) (unknown) (unknown) (no date) (unknown) (unknown) Urine RBC 10-30/hpf H (units unknown) (unknown) (unknown) (no date) (unknown) (unknown) Urine RBC (units unknown) (unknown) (unknown) (no date) (unknown) (unknown) Urine Urobilinogen 1.0 (units unknown) (unknown) (unknown) (no date) (unknown) (unknown) Urine Urobilinogen (units unknown) (unknown) (unknown) (no date) (unknown) (unknown) Urine WBC 1-5/hpf (units unknown) (unknown) (unknown) (no date) (unknown) (unknown) Urine WBC (units unknown) (unknown) (unknown) (no date) (unknown) (unknown) Urine pH 6.5 (units unknown) (unknown) (unknown) (no date) (unknown) (unknown) Urine pH (units unknown) (unknown) (unknown) (no date) (unknown) (unknown) Vital Signs (units unknown) (unknown) (unknown) (no date) (unknown) (unknown) WBC 9.6 (units unknown) (unknown) (unknown) (no date) (unknown) (unknown) WBC (units unknown) (unknown) (unknown) (no date) (unknown) (unknown) [Embedded Image Not Available] (units unknown) (unknown) (unknown) (no date) (unknown) (unknown) [From Prevnar] and feet x (units unknown) (unknown) (unknown) (no date) (unknown) (unknown) a recent 30 lb weight loss, and night sweats with a shuffling gait x6 weeks. He (units unknown) (unknown) (unknown) (no date) (unknown) (unknown) abnormal. COVID, influenza a/B/RSV negative. Head CT negative. CXR ?Possible (units unknown) (unknown) (unknown) (no date) (unknown) (unknown) after. (units unknown) (unknown) (unknown) (no date) (unknown) (unknown) albumin 3.1, CK 53, initial troponin negative, BNP 1430. EKG atrial sensed (units unknown) (unknown) (unknown) (no date) (unknown) (unknown) alcohol intake frequency a few times a month (units unknown) (unknown) (unknown) (no date) (unknown) (unknown) amlodipine 5 mg tablet 5 mg PO DAILY 06/16/22 06/16/22 History (units unknown) (unknown) (unknown) (no date) (unknown) (unknown) and intact without rashes, ulcerations or petechiae. (units unknown) (unknown) (unknown) (no date) (unknown) (unknown) and place, but a very poor historian, stated that 'he came in today by himself (units unknown) (unknown) (unknown) (no date) (unknown) (unknown) apixaban 5 mg tablet (Eliquis) 5 mg PO BID blood thinner 06/16/22 06/16/22 (units unknown) (unknown) (unknown) (no date) (unknown) (unknown) appears is no distress at this time, no apparent jaundice, right upper quadrant (units unknown) (unknown) (unknown) (no date) (unknown) (unknown) are present in all 4 quadrants without guarding or rebound, no CVA tenderness. (units unknown) (unknown) (unknown) (no date) (unknown) (unknown) attitude thought context and judgment are inappropriate- confused, poor (units unknown) (unknown) (unknown) (no date) (unknown) (unknown) because he had black urine this morning'. He did not recall seeing Dr. Gillette, (units unknown) (unknown) (unknown) (no date) (unknown) (unknown) bruit, no cardiac pulsations present. (units unknown) (unknown) (unknown) (no date) (unknown) (unknown) cachexia, weakness, malaise balance coordination issues, and concerns for (units unknown) (unknown) (unknown) (no date) (unknown) (unknown) cardiology's office due to deteriorating health concerns. patient admitted for (units unknown) (unknown) (unknown) (no date) (unknown) (unknown) cardiology's office due to his significant presentation of cachexia, weakness, (units unknown) (unknown) (unknown) (no date) (unknown) (unknown) clear and mucous membranes are dry. Neck is supple and symmetric, trachea is (units unknown) (unknown) (unknown) (no date) (unknown) (unknown) conjugate to of hands (units unknown) (unknown) (unknown) (no date) (unknown) (unknown) demonstrated bibasilar infiltrates versus inflammatory pulmonary opacities mild (units unknown) (unknown) (unknown) (no date) (unknown) (unknown) demonstrated escalating tachycardia with heart rates 111-154, and tachypneic (units unknown) (unknown) (unknown) (no date) (unknown) (unknown) difficulty, struggles slightly with given directions. Patient has no WBC, but (units unknown) (unknown) (unknown) (no date) (unknown) (unknown) distress at this time. (units unknown) (unknown) (unknown) (no date) (unknown) (unknown) fluticasone propionate 44 44 mcg inhalation DAILY 06/16/22 06/16/22 History (units unknown) (unknown) (unknown) (no date) (unknown) (unknown) for mild sepsis, transaminitis, UTI, encephalopathy. (units unknown) (unknown) (unknown) (no date) (unknown) (unknown) gabapentin 300 mg capsule 300 mg PO BID 06/16/22 06/16/22 History (units unknown) (unknown) (unknown) (no date) (unknown) (unknown) greater than left pulmonary effusion. SOFA:2 patient admitted for mild sepsis, (units unknown) (unknown) (unknown) (no date) (unknown) (unknown) historian. (units unknown) (unknown) (unknown) (no date) (unknown) (unknown) infiltrates versus inflammatory pulmonary opacities mild to moderate right (units unknown) (unknown) (unknown) (no date) (unknown) (unknown) left shiftneut 8200, initial lactate 4.3, repeat 2.7, procalcitonin 3.27, PT (units unknown) (unknown) (unknown) (no date) (unknown) (unknown) malaise, balance coordination issues, and concerns for neoplastic syndrome with (units unknown) (unknown) (unknown) (no date) (unknown) (unknown) mcg/actuation HFA aerosol inhaler (units unknown) (unknown) (unknown) (no date) (unknown) (unknown) medication reconciliation accurately. (units unknown) (unknown) (unknown) (no date) (unknown) (unknown) midline, no adenopathy, no thyroid enlargement, nontender, no masses palpated. (units unknown) (unknown) (unknown) (no date) (unknown) (unknown) mild right and retrocardiac opacities Chest CT demonstrated bibasilar (units unknown) (unknown) (unknown) (no date) (unknown) (unknown) mild sepsis, transaminitis, UTI, encephalopathy. (units unknown) (unknown) (unknown) (no date) (unknown) (unknown) negative, BNP 1430. 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 Patient denies any pain, and (units unknown) (unknown) (unknown) (no date) (unknown) (unknown) obvious deformity, crepitus, effusions, cyanosis, clubbing or edema present. (units unknown) (unknown) (unknown) (no date) (unknown) (unknown) or labored breathing, mildly tachypneic. 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 Gillette (units unknown) (unknown) (unknown) (no date) (unknown) (unknown) pain, or fever. (units unknown) (unknown) (unknown) (no date) (unknown) (unknown) pneumococcal 7-valent AdvReac Intermediate swelling Verified 06/16/22 12:46 (units unknown) (unknown) (unknown) (no date) (unknown) (unknown) respiratory rate in the 20s. (units unknown) (unknown) (unknown) (no date) (unknown) (unknown) sensation to touch intact, no gross deficits noted of cranial nerves. (units unknown) (unknown) (unknown) (no date) (unknown) (unknown) shuffling gait x6 weeks. He was brought into the ED by his . Patient (units unknown) (unknown) (unknown) (no date) (unknown) (unknown) tachycardia with heart rates 111-154, and tachypneic respiratory rate in the (units unknown) (unknown) (unknown) (no date) (unknown) (unknown) to moderate right greater than left pulmonary effusion. SOFA:2 patient admitted (units unknown) (unknown) (unknown) (no date) (unknown) (unknown) today; this time is exclusive of procedural time. (units unknown) (unknown) (unknown) (no date) (unknown) (unknown) transaminitis, UTI, encephalopathy. (units unknown) (unknown) (unknown) (no date) (unknown) (unknown) unsure if this is the patient's baseline. Due to cognitive impairment unable to (units unknown) (unknown) (unknown) (no date) (unknown) (unknown) ventricular paced rhythm rate 72, abnormal. COVID, influenza a/B/RSV negative. (units unknown) (unknown) (unknown) (no date) (unknown) (unknown) was brought into the ED by his . In ED patient demonstrated escalating (units unknown) (unknown) (unknown) (no date) (unknown) (unknown) wheezes, rhonchi, or rales. (units unknown) (unknown) Result panel 217 (unknown) (no date) (unknown) (unknown) (no value) (units unknown) (unknown) (unknown) (no date) (unknown) (unknown) (Flovent HFA) (units unknown) (unknown) (unknown) (no date) (unknown) (unknown) (past 8 hours): (units unknown) (unknown) (unknown) (no date) (unknown) (unknown) - CXR ?Possible mild right and retrocardiac opacities (units unknown) (unknown) (unknown) (no date) (unknown) (unknown) -Chest CT demonstrated bibasilar infiltrates versus inflammatory pulmonary (units unknown) (unknown) (unknown) (no date) (unknown) (unknown) -ED:heart rates 111-154, and tachypneic respiratory rate in the 20s. (units unknown) (unknown) (unknown) (no date) (unknown) (unknown) -GGT 516, amylase 59, lipase 45 (units unknown) (unknown) (unknown) (no date) (unknown) (unknown) -Negative Fever, jaundice, right upper quadrant pain (units unknown) (unknown) (unknown) (no date) (unknown) (unknown) -R Factor: 0.4 cholestatic injury (units unknown) (unknown) (unknown) (no date) (unknown) (unknown) -SOFA:2 (units unknown) (unknown) (unknown) (no date) (unknown) (unknown) -WBC neg, neut# 8200, initial lactate 4.3, repeat 2.7, procalcitonin 3.27, (units unknown) (unknown) (unknown) (no date) (unknown) (unknown) -admit BP 149/78, tachycardic heart rate 154, tachypneic R 29, O2 saturation 98% (units unknown) (unknown) (unknown) (no date) (unknown) (unknown) -cachexia, weakness, malaise balance coordination issues, and concerns for (units unknown) (unknown) (unknown) (no date) (unknown) (unknown) -phosphorus 4.1, bili 2.1, AST 61, ALT 63, alk-phos 428, total protein 5.8,PT (units unknown) (unknown) (unknown) (no date) (unknown) (unknown) -positive nitrate urinalysis culture pending, transaminitis (units unknown) (unknown) (unknown) (no date) (unknown) (unknown) [id number] (units unknown) (unknown) (unknown) (no date) (unknown) (unknown) 06/16/22 06/16/22 06/16/22 (units unknown) (unknown) (unknown) (no date) (unknown) (unknown) 06/16/22 06/16/22 (units unknown) (unknown) (unknown) (no date) (unknown) (unknown) 06/16/22 12:35 (units unknown) (unknown) (unknown) (no date) (unknown) (unknown) 06/16/22 (units unknown) (unknown) (unknown) (no date) (unknown) (unknown) 1. Sepsis without septic shock, likely hepatobiliary origin, and UTI, acute, (units unknown) (unknown) (unknown) (no date) (unknown) (unknown) 12:35 12:35 12:35 (units unknown) (unknown) (unknown) (no date) (unknown) (unknown) 13:15 06/16/22 (units unknown) (unknown) (unknown) (no date) (unknown) (unknown) 13:30 (units unknown) (unknown) (unknown) (no date) (unknown) (unknown) 13:45 06/16/22 (units unknown) (unknown) (unknown) (no date) (unknown) (unknown) 13:46 06/16/22 (units unknown) (unknown) (unknown) (no date) (unknown) (unknown) 13:46 (units unknown) (unknown) (unknown) (no date) (unknown) (unknown) 14:00 06/16/22 (units unknown) (unknown) (unknown) (no date) (unknown) (unknown) 14:24 (units unknown) (unknown) (unknown) (no date) (unknown) (unknown) 14:30 06/16/22 (units unknown) (unknown) (unknown) (no date) (unknown) (unknown) 14:45 06/16/22 (units unknown) (unknown) (unknown) (no date) (unknown) (unknown) 15:00 (units unknown) (unknown) (unknown) (no date) (unknown) (unknown) 15:15 06/16/22 (units unknown) (unknown) (unknown) (no date) (unknown) (unknown) 15:30 06/16/22 (units unknown) (unknown) (unknown) (no date) (unknown) (unknown) 15:30 17:55 (units unknown) (unknown) (unknown) (no date) (unknown) (unknown) 15:34 06/16/22 (units unknown) (unknown) (unknown) (no date) (unknown) (unknown) 15:34 (units unknown) (unknown) (unknown) (no date) (unknown) (unknown) 15:45 06/16/22 (units unknown) (unknown) (unknown) (no date) (unknown) (unknown) 15:45 (units unknown) (unknown) (unknown) (no date) (unknown) (unknown) 16:00 06/16/22 (units unknown) (unknown) (unknown) (no date) (unknown) (unknown) 16:15 06/16/22 (units unknown) (unknown) (unknown) (no date) (unknown) (unknown) 16:15 (units unknown) (unknown) (unknown) (no date) (unknown) (unknown) 16:30 06/16/22 (units unknown) (unknown) (unknown) (no date) (unknown) (unknown) 16:31 06/16/22 (units unknown) (unknown) (unknown) (no date) (unknown) (unknown) 16:31 (units unknown) (unknown) (unknown) (no date) (unknown) (unknown) 16:45 06/16/22 (units unknown) (unknown) (unknown) (no date) (unknown) (unknown) 17.6, INR 1.5, PTT 38 (units unknown) (unknown) (unknown) (no date) (unknown) (unknown) 17.6, INR 1.5, PTT 38. Sodium 135, BUN 34, glucose 146, calcium 8.1, magnesium (units unknown) (unknown) (unknown) (no date) (unknown) (unknown) 17:00 06/16/22 (units unknown) (unknown) (unknown) (no date) (unknown) (unknown) 17:00 (units unknown) (unknown) (unknown) (no date) (unknown) (unknown) 17:15 06/16/22 (units unknown) (unknown) (unknown) (no date) (unknown) (unknown) 17:15 (units unknown) (unknown) (unknown) (no date) (unknown) (unknown) 17:30 06/16/22 (units unknown) (unknown) (unknown) (no date) (unknown) (unknown) 17:45 (units unknown) (unknown) (unknown) (no date) (unknown) (unknown) 17:46 06/16/22 (units unknown) (unknown) (unknown) (no date) (unknown) (unknown) 17:59 (units unknown) (unknown) (unknown) (no date) (unknown) (unknown) 18:00 06/16/22 (units unknown) (unknown) (unknown) (no date) (unknown) (unknown) 18:01 06/16/22 (units unknown) (unknown) (unknown) (no date) (unknown) (unknown) 18:15 06/16/22 (units unknown) (unknown) (unknown) (no date) (unknown) (unknown) 18:15 (units unknown) (unknown) (unknown) (no date) (unknown) (unknown) 18:30 06/16/22 (units unknown) (unknown) (unknown) (no date) (unknown) (unknown) 18:30 (units unknown) (unknown) (unknown) (no date) (unknown) (unknown) 18:45 06/16/22 (units unknown) (unknown) (unknown) (no date) (unknown) (unknown) 19:00 06/16/22 (units unknown) (unknown) (unknown) (no date) (unknown) (unknown) 19:00 (units unknown) (unknown) (unknown) (no date) (unknown) (unknown) 19:15 06/16/22 (units unknown) (unknown) (unknown) (no date) (unknown) (unknown) 19:15 (units unknown) (unknown) (unknown) (no date) (unknown) (unknown) 19:30 06/16/22 (units unknown) (unknown) (unknown) (no date) (unknown) (unknown) 19:45 06/16/22 (units unknown) (unknown) (unknown) (no date) (unknown) (unknown) 19:45 (units unknown) (unknown) (unknown) (no date) (unknown) (unknown) 2. Transaminitis, with elevated alkaline phosphate, acute, present on admission (units unknown) (unknown) (unknown) (no date) (unknown) (unknown) 2.6, phosphorus 4.1, bili 2.1, AST 61, ALT 63, alk-phos 428, total protein 5.8, (units unknown) (unknown) (unknown) (no date) (unknown) (unknown) 20:00 06/16/22 (units unknown) (unknown) (unknown) (no date) (unknown) (unknown) 20:00 (units unknown) (unknown) (unknown) (no date) (unknown) (unknown) 20:15 06/16/22 (units unknown) (unknown) (unknown) (no date) (unknown) (unknown) 20:30 06/16/22 (units unknown) (unknown) (unknown) (no date) (unknown) (unknown) 20:30 (units unknown) (unknown) (unknown) (no date) (unknown) (unknown) 20:45 06/16/22 (units unknown) (unknown) (unknown) (no date) (unknown) (unknown) 20:46 06/16/22 (units unknown) (unknown) (unknown) (no date) (unknown) (unknown) 20:46 (units unknown) (unknown) (unknown) (no date) (unknown) (unknown) 20:55 (units unknown) (unknown) (unknown) (no date) (unknown) (unknown) 20s. During admit interview patient is pleasantly confused orientated to self (units unknown) (unknown) (unknown) (no date) (unknown) (unknown) 4 mos (units unknown) (unknown) (unknown) (no date) (unknown) (unknown) 4.3, repeat 2.7, procalcitonin 3.27, . Sodium 135, BUN 34, glucose 146, (units unknown) (unknown) (unknown) (no date) (unknown) (unknown) 428, total protein 5.8, albumin 3.1, CK 53, initial troponin negative, BNP 1430. (units unknown) (unknown) (unknown) (no date) (unknown) (unknown) 98% on room air. Patient did get up and ambulate to the restroom w/MA without (units unknown) (unknown) (unknown) (no date) (unknown) (unknown) 98% on room air. Patient has no WBC, but left shiftneut 8200, initial lactate (units unknown) (unknown) (unknown) (no date) (unknown) (unknown) ALT 63 H (units unknown) (unknown) (unknown) (no date) (unknown) (unknown) ALT (units unknown) (unknown) (unknown) (no date) (unknown) (unknown) APTT 38 H (units unknown) (unknown) (unknown) (no date) (unknown) (unknown) APTT (units unknown) (unknown) (unknown) (no date) (unknown) (unknown) AST 61 H (units unknown) (unknown) (unknown) (no date) (unknown) (unknown) AST (units unknown) (unknown) (unknown) (no date) (unknown) (unknown) Abdomen: Soft nontender, negative for organomegaly, or masses. Bowel sounds (units unknown) (unknown) (unknown) (no date) (unknown) (unknown) Age/Sex: 86 / M (units unknown) (unknown) (unknown) (no date) (unknown) (unknown) Albumin 3.1 L (units unknown) (unknown) (unknown) (no date) (unknown) (unknown) Albumin (units unknown) (unknown) (unknown) (no date) (unknown) (unknown) Albumin/Globulin Ratio 1.1 (units unknown) (unknown) (unknown) (no date) (unknown) (unknown) Albumin/Globulin Ratio (units unknown) (unknown) (unknown) (no date) (unknown) (unknown) Alkaline Phosphatase 428 H (units unknown) (unknown) (unknown) (no date) (unknown) (unknown) Alkaline Phosphatase (units unknown) (unknown) (unknown) (no date) (unknown) (unknown) Allergies (units unknown) (unknown) (unknown) (no date) (unknown) (unknown) Allergy/AdvReac Type Severity Reaction Status Date / Time (units unknown) (unknown) (unknown) (no date) (unknown) (unknown) Assessment + Plan narrative: (units unknown) (unknown) (unknown) (no date) (unknown) (unknown) Assessment + Plan (units unknown) (unknown) (unknown) (no date) (unknown) (unknown) Asthma (units unknown) (unknown) (unknown) (no date) (unknown) (unknown) Atrial fibrillation (units unknown) (unknown) (unknown) (no date) (unknown) (unknown) BUN 34 H (units unknown) (unknown) (unknown) (no date) (unknown) (unknown) BUN (units unknown) (unknown) (unknown) (no date) (unknown) (unknown) BUN/Creatinine Ratio 34.3 H (units unknown) (unknown) (unknown) (no date) (unknown) (unknown) BUN/Creatinine Ratio (units unknown) (unknown) (unknown) (no date) (unknown) (unknown) Baso # (Auto) 100 (units unknown) (unknown) (unknown) (no date) (unknown) (unknown) Baso # (Auto) (units unknown) (unknown) (unknown) (no date) (unknown) (unknown) Baso % (Auto) 0.8 (units unknown) (unknown) (unknown) (no date) (unknown) (unknown) Baso % (Auto) (units unknown) (unknown) (unknown) (no date) (unknown) (unknown) Blood Pressure 141/57 H (units unknown) (unknown) (unknown) (no date) (unknown) (unknown) Blood Pressure 141/73 H (units unknown) (unknown) (unknown) (no date) (unknown) (unknown) Blood Pressure 142/65 H 156/70 H (units unknown) (unknown) (unknown) (no date) (unknown) (unknown) Blood Pressure 142/67 H (units unknown) (unknown) (unknown) (no date) (unknown) (unknown) Blood Pressure 143/67 H (units unknown) (unknown) (unknown) (no date) (unknown) (unknown) Blood Pressure 145/69 H (units unknown) (unknown) (unknown) (no date) (unknown) (unknown) Blood Pressure 146/69 H (units unknown) (unknown) (unknown) (no date) (unknown) (unknown) Blood Pressure 147/71 H 150/72 H (units unknown) (unknown) (unknown) (no date) (unknown) (unknown) Blood Pressure 149/68 H 130/59 L (units unknown) (unknown) (unknown) (no date) (unknown) (unknown) Blood Pressure 149/78 H 155/70 H (units unknown) (unknown) (unknown) (no date) (unknown) (unknown) Blood Pressure 150/73 H (units unknown) (unknown) (unknown) (no date) (unknown) (unknown) Blood Pressure 151/72 H (units unknown) (unknown) (unknown) (no date) (unknown) (unknown) Blood Pressure 154/73 H (units unknown) (unknown) (unknown) (no date) (unknown) (unknown) Blood Pressure 156/72 H 151/72 H (units unknown) (unknown) (unknown) (no date) (unknown) (unknown) Blood Pressure 162/114 H (units unknown) (unknown) (unknown) (no date) (unknown) (unknown) Blood Pressure 164/94 H 164/96 H (units unknown) (unknown) (unknown) (no date) (unknown) (unknown) Blood Pressure 179/74 H 179/94 H (units unknown) (unknown) (unknown) (no date) (unknown) (unknown) Blood Pressure 186/112 H 169/75 H (units unknown) (unknown) (unknown) (no date) (unknown) (unknown) Blood Pressure (units unknown) (unknown) (unknown) (no date) (unknown) (unknown) CK-MB (CK-2) Rel Index TNP (units unknown) (unknown) (unknown) (no date) (unknown) (unknown) CK-MB (CK-2) Rel Index (units unknown) (unknown) (unknown) (no date) (unknown) (unknown) CK-MB (CK-2) TNP (units unknown) (unknown) (unknown) (no date) (unknown) (unknown) CK-MB (CK-2) (units unknown) (unknown) (unknown) (no date) (unknown) (unknown) COVID, influenza a/B/RSV negative (units unknown) (unknown) (unknown) (no date) (unknown) (unknown) Calcium 8.1 L (units unknown) (unknown) (unknown) (no date) (unknown) (unknown) Calcium (units unknown) (unknown) (unknown) (no date) (unknown) (unknown) Carbon Dioxide 28 (units unknown) (unknown) (unknown) (no date) (unknown) (unknown) Carbon Dioxide (units unknown) (unknown) (unknown) (no date) (unknown) (unknown) Cardio: regular rate and rhythm without murmur, rubs, or gallops, no carotid (units unknown) (unknown) (unknown) (no date) (unknown) (unknown) Chest: Equal expansion, positive kyphoscoliosis, no nasal flaring, retractions, (units unknown) (unknown) (unknown) (no date) (unknown) (unknown) Chief complaint: Pain near pacemaker (units unknown) (unknown) (unknown) (no date) (unknown) (unknown) Chloride 99 (units unknown) (unknown) (unknown) (no date) (unknown) (unknown) Chloride (units unknown) (unknown) (unknown) (no date) (unknown) (unknown) Chronic anticoagulation (units unknown) (unknown) (unknown) (no date) (unknown) (unknown) Creatinine 0.99 (units unknown) (unknown) (unknown) (no date) (unknown) (unknown) Creatinine (units unknown) (unknown) (unknown) (no date) (unknown) (unknown) Critical Care time: (units unknown) (unknown) (unknown) (no date) (unknown) (unknown) : 1935 Acct:[id number] (units unknown) (unknown) (unknown) (no date) (unknown) (unknown) Date Patient Seen: 06/16/22 (units unknown) (unknown) (unknown) (no date) (unknown) (unknown) Date of Service: 06/16/22 (units unknown) (unknown) (unknown) (no date) (unknown) (unknown) Yoseph Cardoso is a 86-year-old male with a history of atrial fibrillation, with (units unknown) (unknown) (unknown) (no date) (unknown) (unknown) Due to patient's cognitive impairment/encephal opathy unable to obtain HPI, ROS, (units unknown) (unknown) (unknown) (no date) (unknown) (unknown) EKG atrial sensed ventricular paced rhythm rate 72, abnormal. . Head CT (units unknown) (unknown) (unknown) (no date) (unknown) (unknown) Environment (units unknown) (unknown) (unknown) (no date) (unknown) (unknown) Eos # (Auto) 0 (units unknown) (unknown) (unknown) (no date) (unknown) (unknown) Eos # (Auto) (units unknown) (unknown) (unknown) (no date) (unknown) (unknown) Eos % (Auto) 0.1 L (units unknown) (unknown) (unknown) (no date) (unknown) (unknown) Eos % (Auto) (units unknown) (unknown) (unknown) (no date) (unknown) (unknown) Essential hypertension (units unknown) (unknown) (unknown) (no date) (unknown) (unknown) Estimated GFR > 60 (units unknown) (unknown) (unknown) (no date) (unknown) (unknown) Estimated GFR (units unknown) (unknown) (unknown) (no date) (unknown) (unknown) Exam Narrative: (units unknown) (unknown) (unknown) (no date) (unknown) (unknown) Exam (units unknown) (unknown) (unknown) (no date) (unknown) (unknown) Family + Social History (units unknown) (unknown) (unknown) (no date) (unknown) (unknown) Family History (units unknown) (unknown) (unknown) (no date) (unknown) (unknown) Father Diabetes mellitus (units unknown) (unknown) (unknown) (no date) (unknown) (unknown) Feels Safe in Current Yes, patient lives at home with his . (units unknown) (unknown) (unknown) (no date) (unknown) (unknown) Full range of motion intact radial and pedal pulses are normal. (units unknown) (unknown) (unknown) (no date) (unknown) (unknown) General: Patient is a pleasantly confused cachectic, frail, elderly male, in no (units unknown) (unknown) (unknown) (no date) (unknown) (unknown) Globulin 2.7 (units unknown) (unknown) (unknown) (no date) (unknown) (unknown) Globulin (units unknown) (unknown) (unknown) (no date) (unknown) (unknown) Glucose 146 H (units unknown) (unknown) (unknown) (no date) (unknown) (unknown) Glucose (units unknown) (unknown) (unknown) (no date) (unknown) (unknown) HEENT: Normocephalic, atraumatic, extraocular muscles intact, oral pharynx is (units unknown) (unknown) (unknown) (no date) (unknown) (unknown) Hct 46.6 (units unknown) (unknown) (unknown) (no date) (unknown) (unknown) Hct (units unknown) (unknown) (unknown) (no date) (unknown) (unknown) Head CT negative. CXR ?Possible mild right and retrocardiac opacities Chest CT (units unknown) (unknown) (unknown) (no date) (unknown) (unknown) Hgb 15.4 (units unknown) (unknown) (unknown) (no date) (unknown) (unknown) Hgb (units unknown) (unknown) (unknown) (no date) (unknown) (unknown) History + Physical Report (units unknown) (unknown) (unknown) (no date) (unknown) (unknown) History of Present Illness (units unknown) (unknown) (unknown) (no date) (unknown) (unknown) History of melanoma (units unknown) (unknown) (unknown) (no date) (unknown) (unknown) History of permanent cardiac pacemaker placement (units unknown) (unknown) (unknown) (no date) (unknown) (unknown) History (units unknown) (unknown) (unknown) (no date) (unknown) (unknown) Home Medications and Allergies (units unknown) (unknown) (unknown) (no date) (unknown) (unknown) Home Medications (units unknown) (unknown) (unknown) (no date) (unknown) (unknown) I spent a total of [] minutes of critical care time on this patient's care (units unknown) (unknown) (unknown) (no date) (unknown) (unknown) INR 1.5 H (units unknown) (unknown) (unknown) (no date) (unknown) (unknown) INR (units unknown) (unknown) (unknown) (no date) (unknown) (unknown) Influenza A (RT-PCR) Flu a negative (units unknown) (unknown) (unknown) (no date) (unknown) (unknown) Influenza A (RT-PCR) (units unknown) (unknown) (unknown) (no date) (unknown) (unknown) Influenza B (RT-PCR) Flu b negative (units unknown) (unknown) (unknown) (no date) (unknown) (unknown) Influenza B (RT-PCR) (units unknown) (unknown) (unknown) (no date) (unknown) (unknown) [address] [address] (units unknown) (unknown) (unknown) (no date) (unknown) (unknown) Laboratory Results - last 24 hr (units unknown) (unknown) (unknown) (no date) (unknown) (unknown) Labs (units unknown) (unknown) (unknown) (no date) (unknown) (unknown) Labs: (units unknown) (unknown) (unknown) (no date) (unknown) (unknown) Lactate 2.7 H (units unknown) (unknown) (unknown) (no date) (unknown) (unknown) Lactate 4.3 H* (units unknown) (unknown) (unknown) (no date) (unknown) (unknown) Lactate (units unknown) (unknown) (unknown) (no date) (unknown) (unknown) Lipase 45 (units unknown) (unknown) (unknown) (no date) (unknown) (unknown) Lipase (units unknown) (unknown) (unknown) (no date) (unknown) (unknown) Lungs: Auscultation of all lung troy are clear without adventitious sounds, (units unknown) (unknown) (unknown) (no date) (unknown) (unknown) Lymph # (Auto) 400 L (units unknown) (unknown) (unknown) (no date) (unknown) (unknown) Lymph # (Auto) (units unknown) (unknown) (unknown) (no date) (unknown) (unknown) Lymph % (Auto) 4.6 L (units unknown) (unknown) (unknown) (no date) (unknown) (unknown) Lymph % (Auto) (units unknown) (unknown) (unknown) (no date) (unknown) (unknown) MCH 30.4 (units unknown) (unknown) (unknown) (no date) (unknown) (unknown) MCH (units unknown) (unknown) (unknown) (no date) (unknown) (unknown) MCHC 33.0 (units unknown) (unknown) (unknown) (no date) (unknown) (unknown) MCHC (units unknown) (unknown) (unknown) (no date) (unknown) (unknown) MCV 92.4 (units unknown) (unknown) (unknown) (no date) (unknown) (unknown) MCV (units unknown) (unknown) (unknown) (no date) (unknown) (unknown) Magnesium 2.6 H (units unknown) (unknown) (unknown) (no date) (unknown) (unknown) Magnesium (units unknown) (unknown) (unknown) (no date) (unknown) (unknown) Medical History (Updated 06/17/22 @ 00:55 by Hawa Michael [facility]) (units unknown) (unknown) (unknown) (no date) (unknown) (unknown) Medication Instructions Recorded Confirmed Type (units unknown) (unknown) (unknown) (no date) (unknown) (unknown) Meds (units unknown) (unknown) (unknown) (no date) (unknown) (unknown) [place] # (Auto) 900 (units unknown) (unknown) (unknown) (no date) (unknown) (unknown) [place]oval # (Auto) (units unknown) (unknown) (unknown) (no date) (unknown) (unknown) [place] % (Auto) 9.4 (units unknown) (unknown) (unknown) (no date) (unknown) (unknown) [place]oval % (Auto) (units unknown) (unknown) (unknown) (no date) (unknown) (unknown) Mother No problems noted. (units unknown) (unknown) (unknown) (no date) (unknown) (unknown) Musculoskeletal: Diffuse but equal throughout all extremity muscle wasting, no (units unknown) (unknown) (unknown) (no date) (unknown) (unknown) NT-Pro-B Natriuret Pep 1430 H (units unknown) (unknown) (unknown) (no date) (unknown) (unknown) NT-Pro-B Natriuret Pep (units unknown) (unknown) (unknown) (no date) (unknown) (unknown) Narrative (units unknown) (unknown) (unknown) (no date) (unknown) (unknown) Narrative: (units unknown) (unknown) (unknown) (no date) (unknown) (unknown) Negative for JVD (units unknown) (unknown) (unknown) (no date) (unknown) (unknown) Neuro: Alert and orientated x2 Person + Place , moves all extremities, (units unknown) (unknown) (unknown) (no date) (unknown) (unknown) Neut # (Auto) 8200 H (units unknown) (unknown) (unknown) (no date) (unknown) (unknown) Neut # (Auto) (units unknown) (unknown) (unknown) (no date) (unknown) (unknown) Neut % (Auto) 85.1 H (units unknown) (unknown) (unknown) (no date) (unknown) (unknown) Neut % (Auto) (units unknown) (unknown) (unknown) (no date) (unknown) (unknown) Objective (units unknown) (unknown) (unknown) (no date) (unknown) (unknown) Oxygen Delivery Method Room Air (units unknown) (unknown) (unknown) (no date) (unknown) (unknown) Oxygen Delivery Method (units unknown) (unknown) (unknown) (no date) (unknown) (unknown) PT 17.6 H (units unknown) (unknown) (unknown) (no date) (unknown) (unknown) PT (units unknown) (unknown) (unknown) (no date) (unknown) (unknown) Pacemaker (units unknown) (unknown) (unknown) (no date) (unknown) (unknown) Patient History (units unknown) (unknown) (unknown) (no date) (unknown) (unknown) Patient: Yoseph Cardoso MR#: [id number] (units unknown) (unknown) (unknown) (no date) (unknown) (unknown) Phosphorus 4.1 H (units unknown) (unknown) (unknown) (no date) (unknown) (unknown) Phosphorus (units unknown) (unknown) (unknown) (no date) (unknown) (unknown) Plt Count 222 (units unknown) (unknown) (unknown) (no date) (unknown) (unknown) Plt Count (units unknown) (unknown) (unknown) (no date) (unknown) (unknown) Potassium 4.8 (units unknown) (unknown) (unknown) (no date) (unknown) (unknown) Potassium (units unknown) (unknown) (unknown) (no date) (unknown) (unknown) Procalcitonin 3.27 H (units unknown) (unknown) (unknown) (no date) (unknown) (unknown) Procalcitonin (units unknown) (unknown) (unknown) (no date) (unknown) (unknown) Provider: Hawa Michael-BC (units unknown) (unknown) (unknown) (no date) (unknown) (unknown) Psych: Patient has a well-kept appearance, pleasant affect, mental status (units unknown) (unknown) (unknown) (no date) (unknown) (unknown) Pulse Oximetry 93 100 (units unknown) (unknown) (unknown) (no date) (unknown) (unknown) Pulse Oximetry 94 96 (units unknown) (unknown) (unknown) (no date) (unknown) (unknown) Pulse Oximetry 95 (units unknown) (unknown) (unknown) (no date) (unknown) (unknown) Pulse Oximetry 96 91 (units unknown) (unknown) (unknown) (no date) (unknown) (unknown) Pulse Oximetry 96 99 (units unknown) (unknown) (unknown) (no date) (unknown) (unknown) Pulse Oximetry 96 (units unknown) (unknown) (unknown) (no date) (unknown) (unknown) Pulse Oximetry 97 96 97 (units unknown) (unknown) (unknown) (no date) (unknown) (unknown) Pulse Oximetry 97 97 98 (units unknown) (unknown) (unknown) (no date) (unknown) (unknown) Pulse Oximetry 97 97 (units unknown) (unknown) (unknown) (no date) (unknown) (unknown) Pulse Oximetry 97 (units unknown) (unknown) (unknown) (no date) (unknown) (unknown) Pulse Oximetry 98 97 (units unknown) (unknown) (unknown) (no date) (unknown) (unknown) Pulse Oximetry 98 (units unknown) (unknown) (unknown) (no date) (unknown) (unknown) Pulse Oximetry (units unknown) (unknown) (unknown) (no date) (unknown) (unknown) Pulse Rate 111 H (units unknown) (unknown) (unknown) (no date) (unknown) (unknown) Pulse Rate 114 H 118 H (units unknown) (unknown) (unknown) (no date) (unknown) (unknown) Pulse Rate 154 H (units unknown) (unknown) (unknown) (no date) (unknown) (unknown) Pulse Rate 72 66 (units unknown) (unknown) (unknown) (no date) (unknown) (unknown) Pulse Rate 72 71 (units unknown) (unknown) (unknown) (no date) (unknown) (unknown) Pulse Rate 72 74 (units unknown) (unknown) (unknown) (no date) (unknown) (unknown) Pulse Rate 72 (units unknown) (unknown) (unknown) (no date) (unknown) (unknown) Pulse Rate 73 74 (units unknown) (unknown) (unknown) (no date) (unknown) (unknown) Pulse Rate 73 87 98 H (units unknown) (unknown) (unknown) (no date) (unknown) (unknown) Pulse Rate 73 (units unknown) (unknown) (unknown) (no date) (unknown) (unknown) Pulse Rate 74 104 H 106 H (units unknown) (unknown) (unknown) (no date) (unknown) (unknown) Pulse Rate 75 116 H (units unknown) (unknown) (unknown) (no date) (unknown) (unknown) Pulse Rate 75 70 (units unknown) (unknown) (unknown) (no date) (unknown) (unknown) Pulse Rate 75 74 74 (units unknown) (unknown) (unknown) (no date) (unknown) (unknown) Pulse Rate 75 (units unknown) (unknown) (unknown) (no date) (unknown) (unknown) Pulse Rate 76 (units unknown) (unknown) (unknown) (no date) (unknown) (unknown) Pulse Rate 78 75 (units unknown) (unknown) (unknown) (no date) (unknown) (unknown) Pulse Rate 84 77 (units unknown) (unknown) (unknown) (no date) (unknown) (unknown) Pulse Rate 86 72 (units unknown) (unknown) (unknown) (no date) (unknown) (unknown) Pulse Rate 98 H (units unknown) (unknown) (unknown) (no date) (unknown) (unknown) RBC 5.05 (units unknown) (unknown) (unknown) (no date) (unknown) (unknown) RBC (units unknown) (unknown) (unknown) (no date) (unknown) (unknown) RDW 14.4 (units unknown) (unknown) (unknown) (no date) (unknown) (unknown) RDW (units unknown) (unknown) (unknown) (no date) (unknown) (unknown) RSV (PCR) Negative (units unknown) (unknown) (unknown) (no date) (unknown) (unknown) RSV (PCR) (units unknown) (unknown) (unknown) (no date) (unknown) (unknown) Respiratory Rate 12 25 H (units unknown) (unknown) (unknown) (no date) (unknown) (unknown) Respiratory Rate 13 26 H (units unknown) (unknown) (unknown) (no date) (unknown) (unknown) Respiratory Rate 16 20 (units unknown) (unknown) (unknown) (no date) (unknown) (unknown) Respiratory Rate 17 26 H (units unknown) (unknown) (unknown) (no date) (unknown) (unknown) Respiratory Rate 17 (units unknown) (unknown) (unknown) (no date) (unknown) (unknown) Respiratory Rate 18 32 H (units unknown) (unknown) (unknown) (no date) (unknown) (unknown) Respiratory Rate 18 (units unknown) (unknown) (unknown) (no date) (unknown) (unknown) Respiratory Rate 19 18 (units unknown) (unknown) (unknown) (no date) (unknown) (unknown) Respiratory Rate 19 34 H 39 H (units unknown) (unknown) (unknown) (no date) (unknown) (unknown) Respiratory Rate 19 (units unknown) (unknown) (unknown) (no date) (unknown) (unknown) Respiratory Rate 20 (units unknown) (unknown) (unknown) (no date) (unknown) (unknown) Respiratory Rate 22 20 (units unknown) (unknown) (unknown) (no date) (unknown) (unknown) Respiratory Rate 23 17 16 (units unknown) (unknown) (unknown) (no date) (unknown) (unknown) Respiratory Rate 23 18 (units unknown) (unknown) (unknown) (no date) (unknown) (unknown) Respiratory Rate 24 19 (units unknown) (unknown) (unknown) (no date) (unknown) (unknown) Respiratory Rate 24 23 (units unknown) (unknown) (unknown) (no date) (unknown) (unknown) Respiratory Rate 27 H (units unknown) (unknown) (unknown) (no date) (unknown) (unknown) Respiratory Rate 29 H (units unknown) (unknown) (unknown) (no date) (unknown) (unknown) Respiratory Rate 30 H 24 (units unknown) (unknown) (unknown) (no date) (unknown) (unknown) Respiratory Rate (units unknown) (unknown) (unknown) (no date) (unknown) (unknown) Review of Systems (units unknown) (unknown) (unknown) (no date) (unknown) (unknown) SARS-CoV-2 (PCR) Negative (units unknown) (unknown) (unknown) (no date) (unknown) (unknown) SARS-CoV-2 (PCR) (units unknown) (unknown) (unknown) (no date) (unknown) (unknown) Safety + Behavioral: (units unknown) (unknown) (unknown) (no date) (unknown) (unknown) Signed By: (units unknown) (unknown) (unknown) (no date) (unknown) (unknown) Skin: Warm Very dry, poor turgor, appears significantly dehydrated and wasting (units unknown) (unknown) (unknown) (no date) (unknown) (unknown) Smoking Status never (units unknown) (unknown) (unknown) (no date) (unknown) (unknown) Sodium 135 L (units unknown) (unknown) (unknown) (no date) (unknown) (unknown) Sodium (units unknown) (unknown) (unknown) (no date) (unknown) (unknown) Substance Use Type does not use (units unknown) (unknown) (unknown) (no date) (unknown) (unknown) Surgical History (Updated 06/16/22 @ 21:27 by Hawa Michael [facility]) (units unknown) (unknown) (unknown) (no date) (unknown) (unknown) Temperature 98.1 F (units unknown) (unknown) (unknown) (no date) (unknown) (unknown) Temperature (units unknown) (unknown) (unknown) (no date) (unknown) (unknown) Time Patient Seen: 15:35 (units unknown) (unknown) (unknown) (no date) (unknown) (unknown) Time Spent With Patient (units unknown) (unknown) (unknown) (no date) (unknown) (unknown) Tobacco + Substance use: (units unknown) (unknown) (unknown) (no date) (unknown) (unknown) Total Bilirubin 2.1 H (units unknown) (unknown) (unknown) (no date) (unknown) (unknown) Total Bilirubin (units unknown) (unknown) (unknown) (no date) (unknown) (unknown) Total Creatine Kinase 53 L (units unknown) (unknown) (unknown) (no date) (unknown) (unknown) Total Creatine Kinase (units unknown) (unknown) (unknown) (no date) (unknown) (unknown) Total Protein 5.8 L (units unknown) (unknown) (unknown) (no date) (unknown) (unknown) Total Protein (units unknown) (unknown) (unknown) (no date) (unknown) (unknown) Troponin I < 0.012 (units unknown) (unknown) (unknown) (no date) (unknown) (unknown) Troponin I (units unknown) (unknown) (unknown) (no date) (unknown) (unknown) Upon admit BP 149/78, tachycardic heart rate 154, tachypneic R 29, O2 saturation (units unknown) (unknown) (unknown) (no date) (unknown) (unknown) Ur Bilirubin Confirm Positive H (units unknown) (unknown) (unknown) (no date) (unknown) (unknown) Ur Bilirubin Confirm (units unknown) (unknown) (unknown) (no date) (unknown) (unknown) Ur Culture Indicated? Specimen cultured (units unknown) (unknown) (unknown) (no date) (unknown) (unknown) Ur Culture Indicated? (units unknown) (unknown) (unknown) (no date) (unknown) (unknown) Ur Leukocyte Esterase Trace H (units unknown) (unknown) (unknown) (no date) (unknown) (unknown) Ur Leukocyte Esterase (units unknown) (unknown) (unknown) (no date) (unknown) (unknown) Ur Specific Stockett 1.020 (units unknown) (unknown) (unknown) (no date) (unknown) (unknown) Ur Specific [place] (units unknown) (unknown) (unknown) (no date) (unknown) (unknown) Ur Squamous Epith Cells 1-5 /hpf (units unknown) (unknown) (unknown) (no date) (unknown) (unknown) Ur Squamous Epith Cells (units unknown) (unknown) (unknown) (no date) (unknown) (unknown) Urine Appearance Cloudy (units unknown) (unknown) (unknown) (no date) (unknown) (unknown) Urine Appearance (units unknown) (unknown) (unknown) (no date) (unknown) (unknown) Urine Bacteria None seen (units unknown) (unknown) (unknown) (no date) (unknown) (unknown) Urine Bacteria (units unknown) (unknown) (unknown) (no date) (unknown) (unknown) Urine Bilirubin 3+ H (units unknown) (unknown) (unknown) (no date) (unknown) (unknown) Urine Bilirubin (units unknown) (unknown) (unknown) (no date) (unknown) (unknown) Urine Color Brown (units unknown) (unknown) (unknown) (no date) (unknown) (unknown) Urine Color (units unknown) (unknown) (unknown) (no date) (unknown) (unknown) Urine Glucose (UA) Negative (units unknown) (unknown) (unknown) (no date) (unknown) (unknown) Urine Glucose (UA) (units unknown) (unknown) (unknown) (no date) (unknown) (unknown) Urine Ketones 1+ H (units unknown) (unknown) (unknown) (no date) (unknown) (unknown) Urine Ketones (units unknown) (unknown) (unknown) (no date) (unknown) (unknown) Urine Nitrate Positive H (units unknown) (unknown) (unknown) (no date) (unknown) (unknown) Urine Nitrate (units unknown) (unknown) (unknown) (no date) (unknown) (unknown) Urine Occult Blood Trace-intact (units unknown) (unknown) (unknown) (no date) (unknown) (unknown) Urine Occult Blood (units unknown) (unknown) (unknown) (no date) (unknown) (unknown) Urine Protein 1+ H (units unknown) (unknown) (unknown) (no date) (unknown) (unknown) Urine Protein (units unknown) (unknown) (unknown) (no date) (unknown) (unknown) Urine RBC 10-30/hpf H (units unknown) (unknown) (unknown) (no date) (unknown) (unknown) Urine RBC (units unknown) (unknown) (unknown) (no date) (unknown) (unknown) Urine Urobilinogen 1.0 (units unknown) (unknown) (unknown) (no date) (unknown) (unknown) Urine Urobilinogen (units unknown) (unknown) (unknown) (no date) (unknown) (unknown) Urine WBC 1-5/hpf (units unknown) (unknown) (unknown) (no date) (unknown) (unknown) Urine WBC (units unknown) (unknown) (unknown) (no date) (unknown) (unknown) Urine pH 6.5 (units unknown) (unknown) (unknown) (no date) (unknown) (unknown) Urine pH (units unknown) (unknown) (unknown) (no date) (unknown) (unknown) Vital Signs (units unknown) (unknown) (unknown) (no date) (unknown) (unknown) WBC 9.6 (units unknown) (unknown) (unknown) (no date) (unknown) (unknown) WBC (units unknown) (unknown) (unknown) (no date) (unknown) (unknown) [Embedded Image Not Available] (units unknown) (unknown) (unknown) (no date) (unknown) (unknown) [From Prevnar] and feet x (units unknown) (unknown) (unknown) (no date) (unknown) (unknown) a recent 30 lb weight loss, and night sweats with a shuffling gait x6 weeks. He (units unknown) (unknown) (unknown) (no date) (unknown) (unknown) after. (units unknown) (unknown) (unknown) (no date) (unknown) (unknown) albumin 3.1, CK 53, initial troponin negative, BNP 1430. EKG atrial sensed (units unknown) (unknown) (unknown) (no date) (unknown) (unknown) alcohol intake frequency a few times a month (units unknown) (unknown) (unknown) (no date) (unknown) (unknown) amlodipine 5 mg tablet 5 mg PO DAILY 06/16/22 06/16/22 History (units unknown) (unknown) (unknown) (no date) (unknown) (unknown) and intact without rashes, ulcerations or petechiae. (units unknown) (unknown) (unknown) (no date) (unknown) (unknown) and place, but a very poor historian, stated that 'he came in today by himself (units unknown) (unknown) (unknown) (no date) (unknown) (unknown) apixaban 5 mg tablet (Eliquis) 5 mg PO BID blood thinner 06/16/22 06/16/22 (units unknown) (unknown) (unknown) (no date) (unknown) (unknown) appears is no distress at this time, no apparent jaundice, right upper quadrant (units unknown) (unknown) (unknown) (no date) (unknown) (unknown) are present in all 4 quadrants without guarding or rebound, no CVA tenderness. (units unknown) (unknown) (unknown) (no date) (unknown) (unknown) attitude thought context and judgment are inappropriate- confused, poor (units unknown) (unknown) (unknown) (no date) (unknown) (unknown) because he had black urine this morning'. He did not recall seeing Dr. Gillette, (units unknown) (unknown) (unknown) (no date) (unknown) (unknown) bruit, no cardiac pulsations present. (units unknown) (unknown) (unknown) (no date) (unknown) (unknown) calcium 8.1, magnesium 2.6, phosphorus 4.1, bili 2.1, AST 61, ALT 63, alk-phos (units unknown) (unknown) (unknown) (no date) (unknown) (unknown) cardiology's office due to deteriorating health concerns. patient admitted for (units unknown) (unknown) (unknown) (no date) (unknown) (unknown) cardiology's office due to his significant presentation of cachexia, weakness, (units unknown) (unknown) (unknown) (no date) (unknown) (unknown) clear and mucous membranes are dry. Neck is supple and symmetric, trachea is (units unknown) (unknown) (unknown) (no date) (unknown) (unknown) conjugate to of hands (units unknown) (unknown) (unknown) (no date) (unknown) (unknown) demonstrated bibasilar infiltrates versus inflammatory pulmonary opacities mild (units unknown) (unknown) (unknown) (no date) (unknown) (unknown) difficulty, struggles slightly with given directions. Patient has no WBC, but (units unknown) (unknown) (unknown) (no date) (unknown) (unknown) distress at this time. (units unknown) (unknown) (unknown) (no date) (unknown) (unknown) fluticasone propionate 44 44 mcg inhalation DAILY 06/16/22 06/16/22 History (units unknown) (unknown) (unknown) (no date) (unknown) (unknown) for mild sepsis, transaminitis, UTI, encephalopathy. (units unknown) (unknown) (unknown) (no date) (unknown) (unknown) gabapentin 300 mg capsule 300 mg PO BID 06/16/22 06/16/22 History (units unknown) (unknown) (unknown) (no date) (unknown) (unknown) historian. (units unknown) (unknown) (unknown) (no date) (unknown) (unknown) left shiftneut 8200, initial lactate 4.3, repeat 2.7, procalcitonin 3.27, PT (units unknown) (unknown) (unknown) (no date) (unknown) (unknown) malaise, balance coordination issues, and concerns for neoplastic syndrome with (units unknown) (unknown) (unknown) (no date) (unknown) (unknown) mcg/actuation HFA aerosol inhaler (units unknown) (unknown) (unknown) (no date) (unknown) (unknown) medication reconciliation accurately. (units unknown) (unknown) (unknown) (no date) (unknown) (unknown) midline, no adenopathy, no thyroid enlargement, nontender, no masses palpated. (units unknown) (unknown) (unknown) (no date) (unknown) (unknown) mild sepsis, transaminitis, UTI, encephalopathy. (units unknown) (unknown) (unknown) (no date) (unknown) (unknown) negative. 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 Patient denies any pain, and (units unknown) (unknown) (unknown) (no date) (unknown) (unknown) obvious deformity, crepitus, effusions, cyanosis, clubbing or edema present. (units unknown) (unknown) (unknown) (no date) (unknown) (unknown) on room air. (units unknown) (unknown) (unknown) (no date) (unknown) (unknown) opacities mild to moderate right greater than left pulmonary effusion. (units unknown) (unknown) (unknown) (no date) (unknown) (unknown) or labored breathing, mildly tachypneic. 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 Gillette (units unknown) (unknown) (unknown) (no date) (unknown) (unknown) pain, or fever. (units unknown) (unknown) (unknown) (no date) (unknown) (unknown) pneumococcal 7-valent AdvReac Intermediate swelling Verified 06/16/22 12:46 (units unknown) (unknown) (unknown) (no date) (unknown) (unknown) present on admission (units unknown) (unknown) (unknown) (no date) (unknown) (unknown) sensation to touch intact, no gross deficits noted of cranial nerves. (units unknown) (unknown) (unknown) (no date) (unknown) (unknown) shuffling gait x6 weeks. (units unknown) (unknown) (unknown) (no date) (unknown) (unknown) tachycardia with heart rates 111-154, and tachypneic respiratory rate in the (units unknown) (unknown) (unknown) (no date) (unknown) (unknown) to moderate right greater than left pulmonary effusion. SOFA:2 patient admitted (units unknown) (unknown) (unknown) (no date) (unknown) (unknown) to moderate right greater than left pulmonary effusion. patient admitted for (units unknown) (unknown) (unknown) (no date) (unknown) (unknown) today; this time is exclusive of procedural time. (units unknown) (unknown) (unknown) (no date) (unknown) (unknown) unsure if this is the patient's baseline. Due to cognitive impairment unable to (units unknown) (unknown) (unknown) (no date) (unknown) (unknown) ventricular paced rhythm rate 72, abnormal. COVID, influenza a/B/RSV negative. (units unknown) (unknown) (unknown) (no date) (unknown) (unknown) was brought into the ED by his . In ED patient demonstrated escalating (units unknown) (unknown) (unknown) (no date) (unknown) (unknown) wheezes, rhonchi, or rales. (units unknown) (unknown) Result panel 218 (unknown) (no date) (unknown) (unknown) (no value) (units unknown) (unknown) (unknown) (no date) (unknown) (unknown) (Flovent HFA) (units unknown) (unknown) (unknown) (no date) (unknown) (unknown) (past 8 hours): (units unknown) (unknown) (unknown) (no date) (unknown) (unknown) - CXR ?Possible mild right and retrocardiac opacities (units unknown) (unknown) (unknown) (no date) (unknown) (unknown) -ABD/Pelvis CT:?Multiple ill-defined hypoattenuating mass lesions throughout the (units unknown) (unknown) (unknown) (no date) (unknown) (unknown) -Chest CT demonstrated bibasilar infiltrates versus inflammatory pulmonary (units unknown) (unknown) (unknown) (no date) (unknown) (unknown) -ED:heart rates 111-154, and tachypneic respiratory rate in the 20s. (units unknown) (unknown) (unknown) (no date) (unknown) (unknown) -GGT 516, amylase 59, lipase 45 (units unknown) (unknown) (unknown) (no date) (unknown) (unknown) -Negative Fever, jaundice, right upper quadrant pain (units unknown) (unknown) (unknown) (no date) (unknown) (unknown) -R Factor: 0.4 cholestatic injury (units unknown) (unknown) (unknown) (no date) (unknown) (unknown) -SOFA:2 (units unknown) (unknown) (unknown) (no date) (unknown) (unknown) -WBC neg, neut# 8200, initial lactate 4.3, repeat 2.7, procalcitonin 3.27, (units unknown) (unknown) (unknown) (no date) (unknown) (unknown) -admit BP 149/78, tachycardic heart rate 154, tachypneic R 29, O2 saturation 98% (units unknown) (unknown) (unknown) (no date) (unknown) (unknown) -cachexia, weakness, malaise balance coordination issues, and concerns for (units unknown) (unknown) (unknown) (no date) (unknown) (unknown) -phosphorus 4.1, bili 2.1, AST 61, ALT 63, alk-phos 428, total protein 5.8,PT (units unknown) (unknown) (unknown) (no date) (unknown) (unknown) -positive nitrate urinalysis culture pending, transaminitis (units unknown) (unknown) (unknown) (no date) (unknown) (unknown) [id number] (units unknown) (unknown) (unknown) (no date) (unknown) (unknown) 06/16/22 06/16/22 06/16/22 (units unknown) (unknown) (unknown) (no date) (unknown) (unknown) 06/16/22 06/16/22 (units unknown) (unknown) (unknown) (no date) (unknown) (unknown) 06/16/22 12:35 (units unknown) (unknown) (unknown) (no date) (unknown) (unknown) 06/16/22 (units unknown) (unknown) (unknown) (no date) (unknown) (unknown) 1. Sepsis without septic shock, likely hepatobiliary origin, and UTI, acute, (units unknown) (unknown) (unknown) (no date) (unknown) (unknown) 12:35 12:35 12:35 (units unknown) (unknown) (unknown) (no date) (unknown) (unknown) 13:15 06/16/22 (units unknown) (unknown) (unknown) (no date) (unknown) (unknown) 13:30 (units unknown) (unknown) (unknown) (no date) (unknown) (unknown) 13:45 06/16/22 (units unknown) (unknown) (unknown) (no date) (unknown) (unknown) 13:46 06/16/22 (units unknown) (unknown) (unknown) (no date) (unknown) (unknown) 13:46 (units unknown) (unknown) (unknown) (no date) (unknown) (unknown) 14:00 06/16/22 (units unknown) (unknown) (unknown) (no date) (unknown) (unknown) 14:24 (units unknown) (unknown) (unknown) (no date) (unknown) (unknown) 14:30 06/16/22 (units unknown) (unknown) (unknown) (no date) (unknown) (unknown) 14:45 06/16/22 (units unknown) (unknown) (unknown) (no date) (unknown) (unknown) 15:00 (units unknown) (unknown) (unknown) (no date) (unknown) (unknown) 15:15 06/16/22 (units unknown) (unknown) (unknown) (no date) (unknown) (unknown) 15:30 06/16/22 (units unknown) (unknown) (unknown) (no date) (unknown) (unknown) 15:30 17:55 (units unknown) (unknown) (unknown) (no date) (unknown) (unknown) 15:34 06/16/22 (units unknown) (unknown) (unknown) (no date) (unknown) (unknown) 15:34 (units unknown) (unknown) (unknown) (no date) (unknown) (unknown) 15:45 06/16/22 (units unknown) (unknown) (unknown) (no date) (unknown) (unknown) 15:45 (units unknown) (unknown) (unknown) (no date) (unknown) (unknown) 16:00 06/16/22 (units unknown) (unknown) (unknown) (no date) (unknown) (unknown) 16:15 06/16/22 (units unknown) (unknown) (unknown) (no date) (unknown) (unknown) 16:15 (units unknown) (unknown) (unknown) (no date) (unknown) (unknown) 16:30 06/16/22 (units unknown) (unknown) (unknown) (no date) (unknown) (unknown) 16:31 06/16/22 (units unknown) (unknown) (unknown) (no date) (unknown) (unknown) 16:31 (units unknown) (unknown) (unknown) (no date) (unknown) (unknown) 16:45 06/16/22 (units unknown) (unknown) (unknown) (no date) (unknown) (unknown) 17.6, INR 1.5, PTT 38 (units unknown) (unknown) (unknown) (no date) (unknown) (unknown) 17.6, INR 1.5, PTT 38. Sodium 135, BUN 34, glucose 146, calcium 8.1, magnesium (units unknown) (unknown) (unknown) (no date) (unknown) (unknown) 17:00 06/16/22 (units unknown) (unknown) (unknown) (no date) (unknown) (unknown) 17:00 (units unknown) (unknown) (unknown) (no date) (unknown) (unknown) 17:15 06/16/22 (units unknown) (unknown) (unknown) (no date) (unknown) (unknown) 17:15 (units unknown) (unknown) (unknown) (no date) (unknown) (unknown) 17:30 06/16/22 (units unknown) (unknown) (unknown) (no date) (unknown) (unknown) 17:45 (units unknown) (unknown) (unknown) (no date) (unknown) (unknown) 17:46 06/16/22 (units unknown) (unknown) (unknown) (no date) (unknown) (unknown) 17:59 (units unknown) (unknown) (unknown) (no date) (unknown) (unknown) 18:00 06/16/22 (units unknown) (unknown) (unknown) (no date) (unknown) (unknown) 18:01 06/16/22 (units unknown) (unknown) (unknown) (no date) (unknown) (unknown) 18:15 06/16/22 (units unknown) (unknown) (unknown) (no date) (unknown) (unknown) 18:15 (units unknown) (unknown) (unknown) (no date) (unknown) (unknown) 18:30 06/16/22 (units unknown) (unknown) (unknown) (no date) (unknown) (unknown) 18:30 (units unknown) (unknown) (unknown) (no date) (unknown) (unknown) 18:45 06/16/22 (units unknown) (unknown) (unknown) (no date) (unknown) (unknown) 19:00 06/16/22 (units unknown) (unknown) (unknown) (no date) (unknown) (unknown) 19:00 (units unknown) (unknown) (unknown) (no date) (unknown) (unknown) 19:15 06/16/22 (units unknown) (unknown) (unknown) (no date) (unknown) (unknown) 19:15 (units unknown) (unknown) (unknown) (no date) (unknown) (unknown) 19:30 06/16/22 (units unknown) (unknown) (unknown) (no date) (unknown) (unknown) 19:45 06/16/22 (units unknown) (unknown) (unknown) (no date) (unknown) (unknown) 19:45 (units unknown) (unknown) (unknown) (no date) (unknown) (unknown) 2. Transaminitis, with elevated alkaline phosphate, acute, present on admission (units unknown) (unknown) (unknown) (no date) (unknown) (unknown) 2.6, phosphorus 4.1, bili 2.1, AST 61, ALT 63, alk-phos 428, total protein 5.8, (units unknown) (unknown) (unknown) (no date) (unknown) (unknown) 20:00 06/16/22 (units unknown) (unknown) (unknown) (no date) (unknown) (unknown) 20:00 (units unknown) (unknown) (unknown) (no date) (unknown) (unknown) 20:15 06/16/22 (units unknown) (unknown) (unknown) (no date) (unknown) (unknown) 20:30 06/16/22 (units unknown) (unknown) (unknown) (no date) (unknown) (unknown) 20:30 (units unknown) (unknown) (unknown) (no date) (unknown) (unknown) 20:45 06/16/22 (units unknown) (unknown) (unknown) (no date) (unknown) (unknown) 20:46 06/16/22 (units unknown) (unknown) (unknown) (no date) (unknown) (unknown) 20:46 (units unknown) (unknown) (unknown) (no date) (unknown) (unknown) 20:55 (units unknown) (unknown) (unknown) (no date) (unknown) (unknown) 20s. During admit interview patient is pleasantly confused orientated to self (units unknown) (unknown) (unknown) (no date) (unknown) (unknown) 4 mos (units unknown) (unknown) (unknown) (no date) (unknown) (unknown) 4.3, repeat 2.7, procalcitonin 3.27, . Sodium 135, BUN 34, glucose 146, (units unknown) (unknown) (unknown) (no date) (unknown) (unknown) 428, total protein 5.8, albumin 3.1, CK 53, initial troponin negative, BNP 1430. (units unknown) (unknown) (unknown) (no date) (unknown) (unknown) 98% on room air. Patient did get up and ambulate to the restroom w/MA without (units unknown) (unknown) (unknown) (no date) (unknown) (unknown) 98% on room air. Patient has no WBC, but left shiftneut 8200, initial lactate (units unknown) (unknown) (unknown) (no date) (unknown) (unknown) ALT 63 H (units unknown) (unknown) (unknown) (no date) (unknown) (unknown) ALT (units unknown) (unknown) (unknown) (no date) (unknown) (unknown) APTT 38 H (units unknown) (unknown) (unknown) (no date) (unknown) (unknown) APTT (units unknown) (unknown) (unknown) (no date) (unknown) (unknown) AST 61 H (units unknown) (unknown) (unknown) (no date) (unknown) (unknown) AST (units unknown) (unknown) (unknown) (no date) (unknown) (unknown) Abdomen: Soft nontender, negative for organomegaly, or masses. Bowel sounds (units unknown) (unknown) (unknown) (no date) (unknown) (unknown) Age/Sex: 86 / M (units unknown) (unknown) (unknown) (no date) (unknown) (unknown) Albumin 3.1 L (units unknown) (unknown) (unknown) (no date) (unknown) (unknown) Albumin (units unknown) (unknown) (unknown) (no date) (unknown) (unknown) Albumin/Globulin Ratio 1.1 (units unknown) (unknown) (unknown) (no date) (unknown) (unknown) Albumin/Globulin Ratio (units unknown) (unknown) (unknown) (no date) (unknown) (unknown) Alkaline Phosphatase 428 H (units unknown) (unknown) (unknown) (no date) (unknown) (unknown) Alkaline Phosphatase (units unknown) (unknown) (unknown) (no date) (unknown) (unknown) Allergies (units unknown) (unknown) (unknown) (no date) (unknown) (unknown) Allergy/AdvReac Type Severity Reaction Status Date / Time (units unknown) (unknown) (unknown) (no date) (unknown) (unknown) Assessment + Plan narrative: (units unknown) (unknown) (unknown) (no date) (unknown) (unknown) Assessment + Plan (units unknown) (unknown) (unknown) (no date) (unknown) (unknown) Asthma (units unknown) (unknown) (unknown) (no date) (unknown) (unknown) Atrial fibrillation (units unknown) (unknown) (unknown) (no date) (unknown) (unknown) BUN 34 H (units unknown) (unknown) (unknown) (no date) (unknown) (unknown) BUN (units unknown) (unknown) (unknown) (no date) (unknown) (unknown) BUN/Creatinine Ratio 34.3 H (units unknown) (unknown) (unknown) (no date) (unknown) (unknown) BUN/Creatinine Ratio (units unknown) (unknown) (unknown) (no date) (unknown) (unknown) Baso # (Auto) 100 (units unknown) (unknown) (unknown) (no date) (unknown) (unknown) Baso # (Auto) (units unknown) (unknown) (unknown) (no date) (unknown) (unknown) Baso % (Auto) 0.8 (units unknown) (unknown) (unknown) (no date) (unknown) (unknown) Baso % (Auto) (units unknown) (unknown) (unknown) (no date) (unknown) (unknown) Blood Pressure 141/57 H (units unknown) (unknown) (unknown) (no date) (unknown) (unknown) Blood Pressure 141/73 H (units unknown) (unknown) (unknown) (no date) (unknown) (unknown) Blood Pressure 142/65 H 156/70 H (units unknown) (unknown) (unknown) (no date) (unknown) (unknown) Blood Pressure 142/67 H (units unknown) (unknown) (unknown) (no date) (unknown) (unknown) Blood Pressure 143/67 H (units unknown) (unknown) (unknown) (no date) (unknown) (unknown) Blood Pressure 145/69 H (units unknown) (unknown) (unknown) (no date) (unknown) (unknown) Blood Pressure 146/69 H (units unknown) (unknown) (unknown) (no date) (unknown) (unknown) Blood Pressure 147/71 H 150/72 H (units unknown) (unknown) (unknown) (no date) (unknown) (unknown) Blood Pressure 149/68 H 130/59 L (units unknown) (unknown) (unknown) (no date) (unknown) (unknown) Blood Pressure 149/78 H 155/70 H (units unknown) (unknown) (unknown) (no date) (unknown) (unknown) Blood Pressure 150/73 H (units unknown) (unknown) (unknown) (no date) (unknown) (unknown) Blood Pressure 151/72 H (units unknown) (unknown) (unknown) (no date) (unknown) (unknown) Blood Pressure 154/73 H (units unknown) (unknown) (unknown) (no date) (unknown) (unknown) Blood Pressure 156/72 H 151/72 H (units unknown) (unknown) (unknown) (no date) (unknown) (unknown) Blood Pressure 162/114 H (units unknown) (unknown) (unknown) (no date) (unknown) (unknown) Blood Pressure 164/94 H 164/96 H (units unknown) (unknown) (unknown) (no date) (unknown) (unknown) Blood Pressure 179/74 H 179/94 H (units unknown) (unknown) (unknown) (no date) (unknown) (unknown) Blood Pressure 186/112 H 169/75 H (units unknown) (unknown) (unknown) (no date) (unknown) (unknown) Blood Pressure (units unknown) (unknown) (unknown) (no date) (unknown) (unknown) CK-MB (CK-2) Rel Index TNP (units unknown) (unknown) (unknown) (no date) (unknown) (unknown) CK-MB (CK-2) Rel Index (units unknown) (unknown) (unknown) (no date) (unknown) (unknown) CK-MB (CK-2) TNP (units unknown) (unknown) (unknown) (no date) (unknown) (unknown) CK-MB (CK-2) (units unknown) (unknown) (unknown) (no date) (unknown) (unknown) COVID, influenza a/B/RSV negative (units unknown) (unknown) (unknown) (no date) (unknown) (unknown) Calcium 8.1 L (units unknown) (unknown) (unknown) (no date) (unknown) (unknown) Calcium (units unknown) (unknown) (unknown) (no date) (unknown) (unknown) Carbon Dioxide 28 (units unknown) (unknown) (unknown) (no date) (unknown) (unknown) Carbon Dioxide (units unknown) (unknown) (unknown) (no date) (unknown) (unknown) Cardio: regular rate and rhythm without murmur, rubs, or gallops, no carotid (units unknown) (unknown) (unknown) (no date) (unknown) (unknown) Chest: Equal expansion, positive kyphoscoliosis, no nasal flaring, retractions, (units unknown) (unknown) (unknown) (no date) (unknown) (unknown) Chief complaint: Pain near pacemaker (units unknown) (unknown) (unknown) (no date) (unknown) (unknown) Chloride 99 (units unknown) (unknown) (unknown) (no date) (unknown) (unknown) Chloride (units unknown) (unknown) (unknown) (no date) (unknown) (unknown) Chronic anticoagulation (units unknown) (unknown) (unknown) (no date) (unknown) (unknown) Creatinine 0.99 (units unknown) (unknown) (unknown) (no date) (unknown) (unknown) Creatinine (units unknown) (unknown) (unknown) (no date) (unknown) (unknown) Critical Care time: (units unknown) (unknown) (unknown) (no date) (unknown) (unknown) : 1935 Acct:[id number] (units unknown) (unknown) (unknown) (no date) (unknown) (unknown) Date Patient Seen: 06/16/22 (units unknown) (unknown) (unknown) (no date) (unknown) (unknown) Date of Service: 06/16/22 (units unknown) (unknown) (unknown) (no date) (unknown) (unknown) Yoseph Cardoso is a 86-year-old male with a history of atrial fibrillation, with (units unknown) (unknown) (unknown) (no date) (unknown) (unknown) Due to patient's cognitive impairment/encephal opathy unable to obtain HPI, ROS, (units unknown) (unknown) (unknown) (no date) (unknown) (unknown) EKG atrial sensed ventricular paced rhythm rate 72, abnormal. . Head CT (units unknown) (unknown) (unknown) (no date) (unknown) (unknown) Environment (units unknown) (unknown) (unknown) (no date) (unknown) (unknown) Eos # (Auto) 0 (units unknown) (unknown) (unknown) (no date) (unknown) (unknown) Eos # (Auto) (units unknown) (unknown) (unknown) (no date) (unknown) (unknown) Eos % (Auto) 0.1 L (units unknown) (unknown) (unknown) (no date) (unknown) (unknown) Eos % (Auto) (units unknown) (unknown) (unknown) (no date) (unknown) (unknown) Essential hypertension (units unknown) (unknown) (unknown) (no date) (unknown) (unknown) Estimated GFR > 60 (units unknown) (unknown) (unknown) (no date) (unknown) (unknown) Estimated GFR (units unknown) (unknown) (unknown) (no date) (unknown) (unknown) Exam Narrative: (units unknown) (unknown) (unknown) (no date) (unknown) (unknown) Exam (units unknown) (unknown) (unknown) (no date) (unknown) (unknown) Family + Social History (units unknown) (unknown) (unknown) (no date) (unknown) (unknown) Family History (units unknown) (unknown) (unknown) (no date) (unknown) (unknown) Father Diabetes mellitus (units unknown) (unknown) (unknown) (no date) (unknown) (unknown) Feels Safe in Current Yes, patient lives at home with his . (units unknown) (unknown) (unknown) (no date) (unknown) (unknown) Full range of motion intact radial and pedal pulses are normal. (units unknown) (unknown) (unknown) (no date) (unknown) (unknown) General: Patient is a pleasantly confused cachectic, frail, elderly male, in no (units unknown) (unknown) (unknown) (no date) (unknown) (unknown) Globulin 2.7 (units unknown) (unknown) (unknown) (no date) (unknown) (unknown) Globulin (units unknown) (unknown) (unknown) (no date) (unknown) (unknown) Glucose 146 H (units unknown) (unknown) (unknown) (no date) (unknown) (unknown) Glucose (units unknown) (unknown) (unknown) (no date) (unknown) (unknown) HEENT: Normocephalic, atraumatic, extraocular muscles intact, oral pharynx is (units unknown) (unknown) (unknown) (no date) (unknown) (unknown) Hct 46.6 (units unknown) (unknown) (unknown) (no date) (unknown) (unknown) Hct (units unknown) (unknown) (unknown) (no date) (unknown) (unknown) Head CT negative. CXR ?Possible mild right and retrocardiac opacities Chest CT (units unknown) (unknown) (unknown) (no date) (unknown) (unknown) Hgb 15.4 (units unknown) (unknown) (unknown) (no date) (unknown) (unknown) Hgb (units unknown) (unknown) (unknown) (no date) (unknown) (unknown) History + Physical Report (units unknown) (unknown) (unknown) (no date) (unknown) (unknown) History of Present Illness (units unknown) (unknown) (unknown) (no date) (unknown) (unknown) History of melanoma (units unknown) (unknown) (unknown) (no date) (unknown) (unknown) History of permanent cardiac pacemaker placement (units unknown) (unknown) (unknown) (no date) (unknown) (unknown) History (units unknown) (unknown) (unknown) (no date) (unknown) (unknown) Home Medications and Allergies (units unknown) (unknown) (unknown) (no date) (unknown) (unknown) Home Medications (units unknown) (unknown) (unknown) (no date) (unknown) (unknown) I spent a total of [] minutes of critical care time on this patient's care (units unknown) (unknown) (unknown) (no date) (unknown) (unknown) INR 1.5 H (units unknown) (unknown) (unknown) (no date) (unknown) (unknown) INR (units unknown) (unknown) (unknown) (no date) (unknown) (unknown) Influenza A (RT-PCR) Flu a negative (units unknown) (unknown) (unknown) (no date) (unknown) (unknown) Influenza A (RT-PCR) (units unknown) (unknown) (unknown) (no date) (unknown) (unknown) Influenza B (RT-PCR) Flu b negative (units unknown) (unknown) (unknown) (no date) (unknown) (unknown) Influenza B (RT-PCR) (units unknown) (unknown) (unknown) (no date) (unknown) (unknown) [address] [address] (units unknown) (unknown) (unknown) (no date) (unknown) (unknown) Laboratory Results - last 24 hr (units unknown) (unknown) (unknown) (no date) (unknown) (unknown) Labs (units unknown) (unknown) (unknown) (no date) (unknown) (unknown) Labs: (units unknown) (unknown) (unknown) (no date) (unknown) (unknown) Lactate 2.7 H (units unknown) (unknown) (unknown) (no date) (unknown) (unknown) Lactate 4.3 H* (units unknown) (unknown) (unknown) (no date) (unknown) (unknown) Lactate (units unknown) (unknown) (unknown) (no date) (unknown) (unknown) Lipase 45 (units unknown) (unknown) (unknown) (no date) (unknown) (unknown) Lipase (units unknown) (unknown) (unknown) (no date) (unknown) (unknown) Lungs: Auscultation of all lung troy are clear without adventitious sounds, (units unknown) (unknown) (unknown) (no date) (unknown) (unknown) Lymph # (Auto) 400 L (units unknown) (unknown) (unknown) (no date) (unknown) (unknown) Lymph # (Auto) (units unknown) (unknown) (unknown) (no date) (unknown) (unknown) Lymph % (Auto) 4.6 L (units unknown) (unknown) (unknown) (no date) (unknown) (unknown) Lymph % (Auto) (units unknown) (unknown) (unknown) (no date) (unknown) (unknown) MCH 30.4 (units unknown) (unknown) (unknown) (no date) (unknown) (unknown) MCH (units unknown) (unknown) (unknown) (no date) (unknown) (unknown) MCHC 33.0 (units unknown) (unknown) (unknown) (no date) (unknown) (unknown) MCHC (units unknown) (unknown) (unknown) (no date) (unknown) (unknown) MCV 92.4 (units unknown) (unknown) (unknown) (no date) (unknown) (unknown) MCV (units unknown) (unknown) (unknown) (no date) (unknown) (unknown) Magnesium 2.6 H (units unknown) (unknown) (unknown) (no date) (unknown) (unknown) Magnesium (units unknown) (unknown) (unknown) (no date) (unknown) (unknown) Medical History (Updated 06/17/22 @ 00:55 by JOSE Crystal) (units unknown) (unknown) (unknown) (no date) (unknown) (unknown) Medication Instructions Recorded Confirmed Type (units unknown) (unknown) (unknown) (no date) (unknown) (unknown) Meds (units unknown) (unknown) (unknown) (no date) (unknown) (unknown) [place] # (Auto) 900 (units unknown) (unknown) (unknown) (no date) (unknown) (unknown) [place] # (Auto) (units unknown) (unknown) (unknown) (no date) (unknown) (unknown) [place] % (Auto) 9.4 (units unknown) (unknown) (unknown) (no date) (unknown) (unknown) [place] % (Auto) (units unknown) (unknown) (unknown) (no date) (unknown) (unknown) Mother No problems noted. (units unknown) (unknown) (unknown) (no date) (unknown) (unknown) Musculoskeletal: Diffuse but equal throughout all extremity muscle wasting, no (units unknown) (unknown) (unknown) (no date) (unknown) (unknown) NT-Pro-B Natriuret Pep 1430 H (units unknown) (unknown) (unknown) (no date) (unknown) (unknown) NT-Pro-B Natriuret Pep (units unknown) (unknown) (unknown) (no date) (unknown) (unknown) Narrative (units unknown) (unknown) (unknown) (no date) (unknown) (unknown) Narrative: (units unknown) (unknown) (unknown) (no date) (unknown) (unknown) Negative for JVD (units unknown) (unknown) (unknown) (no date) (unknown) (unknown) Neuro: Alert and orientated x2 Person + Place , moves all extremities, (units unknown) (unknown) (unknown) (no date) (unknown) (unknown) Neut # (Auto) 8200 H (units unknown) (unknown) (unknown) (no date) (unknown) (unknown) Neut # (Auto) (units unknown) (unknown) (unknown) (no date) (unknown) (unknown) Neut % (Auto) 85.1 H (units unknown) (unknown) (unknown) (no date) (unknown) (unknown) Neut % (Auto) (units unknown) (unknown) (unknown) (no date) (unknown) (unknown) Objective (units unknown) (unknown) (unknown) (no date) (unknown) (unknown) Oxygen Delivery Method Room Air (units unknown) (unknown) (unknown) (no date) (unknown) (unknown) Oxygen Delivery Method (units unknown) (unknown) (unknown) (no date) (unknown) (unknown) PT 17.6 H (units unknown) (unknown) (unknown) (no date) (unknown) (unknown) PT (units unknown) (unknown) (unknown) (no date) (unknown) (unknown) Pacemaker (units unknown) (unknown) (unknown) (no date) (unknown) (unknown) Patient History (units unknown) (unknown) (unknown) (no date) (unknown) (unknown) Patient: Yoseph Cardoso MR#: [id number] (units unknown) (unknown) (unknown) (no date) (unknown) (unknown) Phosphorus 4.1 H (units unknown) (unknown) (unknown) (no date) (unknown) (unknown) Phosphorus (units unknown) (unknown) (unknown) (no date) (unknown) (unknown) Plt Count 222 (units unknown) (unknown) (unknown) (no date) (unknown) (unknown) Plt Count (units unknown) (unknown) (unknown) (no date) (unknown) (unknown) Potassium 4.8 (units unknown) (unknown) (unknown) (no date) (unknown) (unknown) Potassium (units unknown) (unknown) (unknown) (no date) (unknown) (unknown) Procalcitonin 3.27 H (units unknown) (unknown) (unknown) (no date) (unknown) (unknown) Procalcitonin (units unknown) (unknown) (unknown) (no date) (unknown) (unknown) Provider: Hawa Michael[facility] (units unknown) (unknown) (unknown) (no date) (unknown) (unknown) Psych: Patient has a well-kept appearance, pleasant affect, mental status (units unknown) (unknown) (unknown) (no date) (unknown) (unknown) Pulse Oximetry 93 100 (units unknown) (unknown) (unknown) (no date) (unknown) (unknown) Pulse Oximetry 94 96 (units unknown) (unknown) (unknown) (no date) (unknown) (unknown) Pulse Oximetry 95 (units unknown) (unknown) (unknown) (no date) (unknown) (unknown) Pulse Oximetry 96 91 (units unknown) (unknown) (unknown) (no date) (unknown) (unknown) Pulse Oximetry 96 99 (units unknown) (unknown) (unknown) (no date) (unknown) (unknown) Pulse Oximetry 96 (units unknown) (unknown) (unknown) (no date) (unknown) (unknown) Pulse Oximetry 97 96 97 (units unknown) (unknown) (unknown) (no date) (unknown) (unknown) Pulse Oximetry 97 97 98 (units unknown) (unknown) (unknown) (no date) (unknown) (unknown) Pulse Oximetry 97 97 (units unknown) (unknown) (unknown) (no date) (unknown) (unknown) Pulse Oximetry 97 (units unknown) (unknown) (unknown) (no date) (unknown) (unknown) Pulse Oximetry 98 97 (units unknown) (unknown) (unknown) (no date) (unknown) (unknown) Pulse Oximetry 98 (units unknown) (unknown) (unknown) (no date) (unknown) (unknown) Pulse Oximetry (units unknown) (unknown) (unknown) (no date) (unknown) (unknown) Pulse Rate 111 H (units unknown) (unknown) (unknown) (no date) (unknown) (unknown) Pulse Rate 114 H 118 H (units unknown) (unknown) (unknown) (no date) (unknown) (unknown) Pulse Rate 154 H (units unknown) (unknown) (unknown) (no date) (unknown) (unknown) Pulse Rate 72 66 (units unknown) (unknown) (unknown) (no date) (unknown) (unknown) Pulse Rate 72 71 (units unknown) (unknown) (unknown) (no date) (unknown) (unknown) Pulse Rate 72 74 (units unknown) (unknown) (unknown) (no date) (unknown) (unknown) Pulse Rate 72 (units unknown) (unknown) (unknown) (no date) (unknown) (unknown) Pulse Rate 73 74 (units unknown) (unknown) (unknown) (no date) (unknown) (unknown) Pulse Rate 73 87 98 H (units unknown) (unknown) (unknown) (no date) (unknown) (unknown) Pulse Rate 73 (units unknown) (unknown) (unknown) (no date) (unknown) (unknown) Pulse Rate 74 104 H 106 H (units unknown) (unknown) (unknown) (no date) (unknown) (unknown) Pulse Rate 75 116 H (units unknown) (unknown) (unknown) (no date) (unknown) (unknown) Pulse Rate 75 70 (units unknown) (unknown) (unknown) (no date) (unknown) (unknown) Pulse Rate 75 74 74 (units unknown) (unknown) (unknown) (no date) (unknown) (unknown) Pulse Rate 75 (units unknown) (unknown) (unknown) (no date) (unknown) (unknown) Pulse Rate 76 (units unknown) (unknown) (unknown) (no date) (unknown) (unknown) Pulse Rate 78 75 (units unknown) (unknown) (unknown) (no date) (unknown) (unknown) Pulse Rate 84 77 (units unknown) (unknown) (unknown) (no date) (unknown) (unknown) Pulse Rate 86 72 (units unknown) (unknown) (unknown) (no date) (unknown) (unknown) Pulse Rate 98 H (units unknown) (unknown) (unknown) (no date) (unknown) (unknown) RBC 5.05 (units unknown) (unknown) (unknown) (no date) (unknown) (unknown) RBC (units unknown) (unknown) (unknown) (no date) (unknown) (unknown) RDW 14.4 (units unknown) (unknown) (unknown) (no date) (unknown) (unknown) RDW (units unknown) (unknown) (unknown) (no date) (unknown) (unknown) RSV (PCR) Negative (units unknown) (unknown) (unknown) (no date) (unknown) (unknown) RSV (PCR) (units unknown) (unknown) (unknown) (no date) (unknown) (unknown) Respiratory Rate 12 25 H (units unknown) (unknown) (unknown) (no date) (unknown) (unknown) Respiratory Rate 13 26 H (units unknown) (unknown) (unknown) (no date) (unknown) (unknown) Respiratory Rate 16 20 (units unknown) (unknown) (unknown) (no date) (unknown) (unknown) Respiratory Rate 17 26 H (units unknown) (unknown) (unknown) (no date) (unknown) (unknown) Respiratory Rate 17 (units unknown) (unknown) (unknown) (no date) (unknown) (unknown) Respiratory Rate 18 32 H (units unknown) (unknown) (unknown) (no date) (unknown) (unknown) Respiratory Rate 18 (units unknown) (unknown) (unknown) (no date) (unknown) (unknown) Respiratory Rate 19 18 (units unknown) (unknown) (unknown) (no date) (unknown) (unknown) Respiratory Rate 19 34 H 39 H (units unknown) (unknown) (unknown) (no date) (unknown) (unknown) Respiratory Rate 19 (units unknown) (unknown) (unknown) (no date) (unknown) (unknown) Respiratory Rate 20 (units unknown) (unknown) (unknown) (no date) (unknown) (unknown) Respiratory Rate 22 20 (units unknown) (unknown) (unknown) (no date) (unknown) (unknown) Respiratory Rate 23 17 16 (units unknown) (unknown) (unknown) (no date) (unknown) (unknown) Respiratory Rate 23 18 (units unknown) (unknown) (unknown) (no date) (unknown) (unknown) Respiratory Rate 24 19 (units unknown) (unknown) (unknown) (no date) (unknown) (unknown) Respiratory Rate 24 23 (units unknown) (unknown) (unknown) (no date) (unknown) (unknown) Respiratory Rate 27 H (units unknown) (unknown) (unknown) (no date) (unknown) (unknown) Respiratory Rate 29 H (units unknown) (unknown) (unknown) (no date) (unknown) (unknown) Respiratory Rate 30 H 24 (units unknown) (unknown) (unknown) (no date) (unknown) (unknown) Respiratory Rate (units unknown) (unknown) (unknown) (no date) (unknown) (unknown) Review of Systems (units unknown) (unknown) (unknown) (no date) (unknown) (unknown) SARS-CoV-2 (PCR) Negative (units unknown) (unknown) (unknown) (no date) (unknown) (unknown) SARS-CoV-2 (PCR) (units unknown) (unknown) (unknown) (no date) (unknown) (unknown) Safety + Behavioral: (units unknown) (unknown) (unknown) (no date) (unknown) (unknown) Signed By: (units unknown) (unknown) (unknown) (no date) (unknown) (unknown) Skin: Warm Very dry, poor turgor, appears significantly dehydrated and wasting (units unknown) (unknown) (unknown) (no date) (unknown) (unknown) Smoking Status never (units unknown) (unknown) (unknown) (no date) (unknown) (unknown) Sodium 135 L (units unknown) (unknown) (unknown) (no date) (unknown) (unknown) Sodium (units unknown) (unknown) (unknown) (no date) (unknown) (unknown) Substance Use Type does not use (units unknown) (unknown) (unknown) (no date) (unknown) (unknown) Surgical History (Updated 06/16/22 @ 21:27 by JOSE Crystal) (units unknown) (unknown) (unknown) (no date) (unknown) (unknown) Temperature 98.1 F (units unknown) (unknown) (unknown) (no date) (unknown) (unknown) Temperature (units unknown) (unknown) (unknown) (no date) (unknown) (unknown) Time Patient Seen: 15:35 (units unknown) (unknown) (unknown) (no date) (unknown) (unknown) Time Spent With Patient (units unknown) (unknown) (unknown) (no date) (unknown) (unknown) Tobacco + Substance use: (units unknown) (unknown) (unknown) (no date) (unknown) (unknown) Total Bilirubin 2.1 H (units unknown) (unknown) (unknown) (no date) (unknown) (unknown) Total Bilirubin (units unknown) (unknown) (unknown) (no date) (unknown) (unknown) Total Creatine Kinase 53 L (units unknown) (unknown) (unknown) (no date) (unknown) (unknown) Total Creatine Kinase (units unknown) (unknown) (unknown) (no date) (unknown) (unknown) Total Protein 5.8 L (units unknown) (unknown) (unknown) (no date) (unknown) (unknown) Total Protein (units unknown) (unknown) (unknown) (no date) (unknown) (unknown) Troponin I < 0.012 (units unknown) (unknown) (unknown) (no date) (unknown) (unknown) Troponin I (units unknown) (unknown) (unknown) (no date) (unknown) (unknown) Upon admit BP 149/78, tachycardic heart rate 154, tachypneic R 29, O2 saturation (units unknown) (unknown) (unknown) (no date) (unknown) (unknown) Ur Bilirubin Confirm Positive H (units unknown) (unknown) (unknown) (no date) (unknown) (unknown) Ur Bilirubin Confirm (units unknown) (unknown) (unknown) (no date) (unknown) (unknown) Ur Culture Indicated? Specimen cultured (units unknown) (unknown) (unknown) (no date) (unknown) (unknown) Ur Culture Indicated? (units unknown) (unknown) (unknown) (no date) (unknown) (unknown) Ur Leukocyte Esterase Trace H (units unknown) (unknown) (unknown) (no date) (unknown) (unknown) Ur Leukocyte Esterase (units unknown) (unknown) (unknown) (no date) (unknown) (unknown) Ur Specific [place] 1.020 (units unknown) (unknown) (unknown) (no date) (unknown) (unknown) Ur Specific [place] (units unknown) (unknown) (unknown) (no date) (unknown) (unknown) Ur Squamous Epith Cells 1-5 /hpf (units unknown) (unknown) (unknown) (no date) (unknown) (unknown) Ur Squamous Epith Cells (units unknown) (unknown) (unknown) (no date) (unknown) (unknown) Urine Appearance Cloudy (units unknown) (unknown) (unknown) (no date) (unknown) (unknown) Urine Appearance (units unknown) (unknown) (unknown) (no date) (unknown) (unknown) Urine Bacteria None seen (units unknown) (unknown) (unknown) (no date) (unknown) (unknown) Urine Bacteria (units unknown) (unknown) (unknown) (no date) (unknown) (unknown) Urine Bilirubin 3+ H (units unknown) (unknown) (unknown) (no date) (unknown) (unknown) Urine Bilirubin (units unknown) (unknown) (unknown) (no date) (unknown) (unknown) Urine Color Brown (units unknown) (unknown) (unknown) (no date) (unknown) (unknown) Urine Color (units unknown) (unknown) (unknown) (no date) (unknown) (unknown) Urine Glucose (UA) Negative (units unknown) (unknown) (unknown) (no date) (unknown) (unknown) Urine Glucose (UA) (units unknown) (unknown) (unknown) (no date) (unknown) (unknown) Urine Ketones 1+ H (units unknown) (unknown) (unknown) (no date) (unknown) (unknown) Urine Ketones (units unknown) (unknown) (unknown) (no date) (unknown) (unknown) Urine Nitrate Positive H (units unknown) (unknown) (unknown) (no date) (unknown) (unknown) Urine Nitrate (units unknown) (unknown) (unknown) (no date) (unknown) (unknown) Urine Occult Blood Trace-intact (units unknown) (unknown) (unknown) (no date) (unknown) (unknown) Urine Occult Blood (units unknown) (unknown) (unknown) (no date) (unknown) (unknown) Urine Protein 1+ H (units unknown) (unknown) (unknown) (no date) (unknown) (unknown) Urine Protein (units unknown) (unknown) (unknown) (no date) (unknown) (unknown) Urine RBC 10-30/hpf H (units unknown) (unknown) (unknown) (no date) (unknown) (unknown) Urine RBC (units unknown) (unknown) (unknown) (no date) (unknown) (unknown) Urine Urobilinogen 1.0 (units unknown) (unknown) (unknown) (no date) (unknown) (unknown) Urine Urobilinogen (units unknown) (unknown) (unknown) (no date) (unknown) (unknown) Urine WBC 1-5/hpf (units unknown) (unknown) (unknown) (no date) (unknown) (unknown) Urine WBC (units unknown) (unknown) (unknown) (no date) (unknown) (unknown) Urine pH 6.5 (units unknown) (unknown) (unknown) (no date) (unknown) (unknown) Urine pH (units unknown) (unknown) (unknown) (no date) (unknown) (unknown) Vital Signs (units unknown) (unknown) (unknown) (no date) (unknown) (unknown) WBC 9.6 (units unknown) (unknown) (unknown) (no date) (unknown) (unknown) WBC (units unknown) (unknown) (unknown) (no date) (unknown) (unknown) [Embedded Image Not Available] (units unknown) (unknown) (unknown) (no date) (unknown) (unknown) [From Prevnar] and feet x (units unknown) (unknown) (unknown) (no date) (unknown) (unknown) a recent 30 lb weight loss, and night sweats with a shuffling gait x6 weeks. He (units unknown) (unknown) (unknown) (no date) (unknown) (unknown) after. (units unknown) (unknown) (unknown) (no date) (unknown) (unknown) albumin 3.1, CK 53, initial troponin negative, BNP 1430. EKG atrial sensed (units unknown) (unknown) (unknown) (no date) (unknown) (unknown) alcohol intake frequency a few times a month (units unknown) (unknown) (unknown) (no date) (unknown) (unknown) amlodipine 5 mg tablet 5 mg PO DAILY 06/16/22 06/16/22 History (units unknown) (unknown) (unknown) (no date) (unknown) (unknown) and intact without rashes, ulcerations or petechiae. (units unknown) (unknown) (unknown) (no date) (unknown) (unknown) and place, but a very poor historian, stated that 'he came in today by himself (units unknown) (unknown) (unknown) (no date) (unknown) (unknown) apixaban 5 mg tablet (Eliquis) 5 mg PO BID blood thinner 06/16/22 06/16/22 (units unknown) (unknown) (unknown) (no date) (unknown) (unknown) appears is no distress at this time, no apparent jaundice, right upper quadrant (units unknown) (unknown) (unknown) (no date) (unknown) (unknown) are present in all 4 quadrants without guarding or rebound, no CVA tenderness. (units unknown) (unknown) (unknown) (no date) (unknown) (unknown) attitude thought context and judgment are inappropriate- confused, poor (units unknown) (unknown) (unknown) (no date) (unknown) (unknown) because he had black urine this morning'. He did not recall seeing Dr. Gillette, (units unknown) (unknown) (unknown) (no date) (unknown) (unknown) bruit, no cardiac pulsations present. (units unknown) (unknown) (unknown) (no date) (unknown) (unknown) calcium 8.1, magnesium 2.6, phosphorus 4.1, bili 2.1, AST 61, ALT 63, alk-phos (units unknown) (unknown) (unknown) (no date) (unknown) (unknown) cardiology's office due to deteriorating health concerns. patient admitted for (units unknown) (unknown) (unknown) (no date) (unknown) (unknown) cardiology's office due to his significant presentation of cachexia, weakness, (units unknown) (unknown) (unknown) (no date) (unknown) (unknown) clear and mucous membranes are dry. Neck is supple and symmetric, trachea is (units unknown) (unknown) (unknown) (no date) (unknown) (unknown) conjugate to of hands (units unknown) (unknown) (unknown) (no date) (unknown) (unknown) demonstrated bibasilar infiltrates versus inflammatory pulmonary opacities mild (units unknown) (unknown) (unknown) (no date) (unknown) (unknown) differential also includes neoplastic processes as well as infectious (units unknown) (unknown) (unknown) (no date) (unknown) (unknown) difficulty, struggles slightly with given directions. Patient has no WBC, but (units unknown) (unknown) (unknown) (no date) (unknown) (unknown) distress at this time. (units unknown) (unknown) (unknown) (no date) (unknown) (unknown) etiologies such as micro abscesses (units unknown) (unknown) (unknown) (no date) (unknown) (unknown) fluticasone propionate 44 44 mcg inhalation DAILY 06/16/22 06/16/22 History (units unknown) (unknown) (unknown) (no date) (unknown) (unknown) for mild sepsis, transaminitis, UTI, encephalopathy. (units unknown) (unknown) (unknown) (no date) (unknown) (unknown) gabapentin 300 mg capsule 300 mg PO BID 06/16/22 06/16/22 History (units unknown) (unknown) (unknown) (no date) (unknown) (unknown) historian. 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 Numerous (units unknown) (unknown) (unknown) (no date) (unknown) (unknown) malaise, balance coordination issues, and concerns for neoplastic syndrome with (units unknown) (unknown) (unknown) (no date) (unknown) (unknown) mcg/actuation HFA aerosol inhaler (units unknown) (unknown) (unknown) (no date) (unknown) (unknown) medication reconciliation accurately. (units unknown) (unknown) (unknown) (no date) (unknown) (unknown) midline, no adenopathy, no thyroid enlargement, nontender, no masses palpated. (units unknown) (unknown) (unknown) (no date) (unknown) (unknown) mild sepsis, transaminitis, UTI, encephalopathy. (units unknown) (unknown) (unknown) (no date) (unknown) (unknown) negative. 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 Patient denies any pain, and (units unknown) (unknown) (unknown) (no date) (unknown) (unknown) obvious deformity, crepitus, effusions, cyanosis, clubbing or edema present. (units unknown) (unknown) (unknown) (no date) (unknown) (unknown) on room air. (units unknown) (unknown) (unknown) (no date) (unknown) (unknown) opacities mild to moderate right greater than left pulmonary effusion. (units unknown) (unknown) (unknown) (no date) (unknown) (unknown) or labored breathing, mildly tachypneic. 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 Gillette (units unknown) (unknown) (unknown) (no date) (unknown) (unknown) pain, or fever. (units unknown) (unknown) (unknown) (no date) (unknown) (unknown) pneumococcal 7-valent AdvReac Intermediate swelling Verified 06/16/22 12:46 (units unknown) (unknown) (unknown) (no date) (unknown) (unknown) present on admission (units unknown) (unknown) (unknown) (no date) (unknown) (unknown) sensation to touch intact, no gross deficits noted of cranial nerves. (units unknown) (unknown) (unknown) (no date) (unknown) (unknown) shuffling gait x6 weeks. (units unknown) (unknown) (unknown) (no date) (unknown) (unknown) small hypoattenuating lesions throughout the spleen are also nonspecific and the (units unknown) (unknown) (unknown) (no date) (unknown) (unknown) tachycardia with heart rates 111-154, and tachypneic respiratory rate in the (units unknown) (unknown) (unknown) (no date) (unknown) (unknown) to moderate right greater than left pulmonary effusion. SOFA:2 patient admitted (units unknown) (unknown) (unknown) (no date) (unknown) (unknown) to moderate right greater than left pulmonary effusion. patient admitted for (units unknown) (unknown) (unknown) (no date) (unknown) (unknown) today; this time is exclusive of procedural time. (units unknown) (unknown) (unknown) (no date) (unknown) (unknown) unsure if this is the patient's baseline. Due to cognitive impairment unable to (units unknown) (unknown) (unknown) (no date) (unknown) (unknown) ventricular paced rhythm rate 72, abnormal. COVID, influenza a/B/RSV negative. (units unknown) (unknown) (unknown) (no date) (unknown) (unknown) was brought into the ED by his . In ED patient demonstrated escalating (units unknown) (unknown) (unknown) (no date) (unknown) (unknown) wheezes, rhonchi, or rales. (units unknown) (unknown) Result panel 219 (unknown) (no date) (unknown) (unknown) (no value) (units unknown) (unknown) (unknown) (no date) (unknown) (unknown) (Flovent HFA) (units unknown) (unknown) (unknown) (no date) (unknown) (unknown) (past 8 hours): (units unknown) (unknown) (unknown) (no date) (unknown) (unknown) - CXR ?Possible mild right and retrocardiac opacities (units unknown) (unknown) (unknown) (no date) (unknown) (unknown) -ABD/Pelvis CT:?Multiple ill-defined hypoattenuating mass lesions throughout the (units unknown) (unknown) (unknown) (no date) (unknown) (unknown) -BLD/Urine culture pending (units unknown) (unknown) (unknown) (no date) (unknown) (unknown) -Chest CT demonstrated bibasilar infiltrates versus inflammatory pulmonary (units unknown) (unknown) (unknown) (no date) (unknown) (unknown) -ED:heart rates 111-154, and tachypneic respiratory rate in the 20s. (1L bolus) (units unknown) (unknown) (unknown) (no date) (unknown) (unknown) -GGT 516 -Ordered RT upper Quad U/S tomorrow -may require (units unknown) (unknown) (unknown) (no date) (unknown) (unknown) -Negative Fever, jaundice, right upper quadrant pain (units unknown) (unknown) (unknown) (no date) (unknown) (unknown) -Ordered: CRP, ESR, AFP, EPO, hepatitis panel (units unknown) (unknown) (unknown) (no date) (unknown) (unknown) -R Factor: 0.4 cholestatic injury- Ordered ABD/P CT (units unknown) (unknown) (unknown) (no date) (unknown) (unknown) -SOFA:2 (units unknown) (unknown) (unknown) (no date) (unknown) (unknown) -WBC neg, neut# 8200, initial lactate 4.3, repeat 2.7, procalcitonin 3.27, (units unknown) (unknown) (unknown) (no date) (unknown) (unknown) -admit BP 149/78, tachycardic heart rate 154, tachypneic R 29, O2 saturation 98% (units unknown) (unknown) (unknown) (no date) (unknown) (unknown) -cachexia, weakness, malaise balance coordination issues, and concerns for (units unknown) (unknown) (unknown) (no date) (unknown) (unknown) -monitor for septic shock (units unknown) (unknown) (unknown) (no date) (unknown) (unknown) -ordered 1L bolus followed by NS @100 cc/HR (units unknown) (unknown) (unknown) (no date) (unknown) (unknown) -phosphorus 4.1, bili 2.1, AST 61, ALT 63, alk-phos 428, total protein 5.8,PT (units unknown) (unknown) (unknown) (no date) (unknown) (unknown) -placed general surgery consult Dr. Turner (units unknown) (unknown) (unknown) (no date) (unknown) (unknown) -positive nitrate urinalysis culture pending, transaminitis (units unknown) (unknown) (unknown) (no date) (unknown) (unknown) [id number] (units unknown) (unknown) (unknown) (no date) (unknown) (unknown) 06/16/22 06/16/22 06/16/22 (units unknown) (unknown) (unknown) (no date) (unknown) (unknown) 06/16/22 06/16/22 (units unknown) (unknown) (unknown) (no date) (unknown) (unknown) 06/16/22 12:35 (units unknown) (unknown) (unknown) (no date) (unknown) (unknown) 06/16/22 (units unknown) (unknown) (unknown) (no date) (unknown) (unknown) 1. Sepsis without septic shock, likely hepatobiliary origin, and UTI, acute, (units unknown) (unknown) (unknown) (no date) (unknown) (unknown) 12:35 12:35 12:35 (units unknown) (unknown) (unknown) (no date) (unknown) (unknown) 13:15 06/16/22 (units unknown) (unknown) (unknown) (no date) (unknown) (unknown) 13:30 (units unknown) (unknown) (unknown) (no date) (unknown) (unknown) 13:45 06/16/22 (units unknown) (unknown) (unknown) (no date) (unknown) (unknown) 13:46 06/16/22 (units unknown) (unknown) (unknown) (no date) (unknown) (unknown) 13:46 (units unknown) (unknown) (unknown) (no date) (unknown) (unknown) 14:00 06/16/22 (units unknown) (unknown) (unknown) (no date) (unknown) (unknown) 14:24 (units unknown) (unknown) (unknown) (no date) (unknown) (unknown) 14:30 06/16/22 (units unknown) (unknown) (unknown) (no date) (unknown) (unknown) 14:45 06/16/22 (units unknown) (unknown) (unknown) (no date) (unknown) (unknown) 15:00 (units unknown) (unknown) (unknown) (no date) (unknown) (unknown) 15:15 06/16/22 (units unknown) (unknown) (unknown) (no date) (unknown) (unknown) 15:30 06/16/22 (units unknown) (unknown) (unknown) (no date) (unknown) (unknown) 15:30 17:55 (units unknown) (unknown) (unknown) (no date) (unknown) (unknown) 15:34 06/16/22 (units unknown) (unknown) (unknown) (no date) (unknown) (unknown) 15:34 (units unknown) (unknown) (unknown) (no date) (unknown) (unknown) 15:45 06/16/22 (units unknown) (unknown) (unknown) (no date) (unknown) (unknown) 15:45 (units unknown) (unknown) (unknown) (no date) (unknown) (unknown) 16:00 06/16/22 (units unknown) (unknown) (unknown) (no date) (unknown) (unknown) 16:15 06/16/22 (units unknown) (unknown) (unknown) (no date) (unknown) (unknown) 16:15 (units unknown) (unknown) (unknown) (no date) (unknown) (unknown) 16:30 06/16/22 (units unknown) (unknown) (unknown) (no date) (unknown) (unknown) 16:31 06/16/22 (units unknown) (unknown) (unknown) (no date) (unknown) (unknown) 16:31 (units unknown) (unknown) (unknown) (no date) (unknown) (unknown) 16:45 06/16/22 (units unknown) (unknown) (unknown) (no date) (unknown) (unknown) 17.6, INR 1.5, PTT 38 (units unknown) (unknown) (unknown) (no date) (unknown) (unknown) 17.6, INR 1.5, PTT 38. Sodium 135, BUN 34, glucose 146, calcium 8.1, magnesium (units unknown) (unknown) (unknown) (no date) (unknown) (unknown) 17:00 06/16/22 (units unknown) (unknown) (unknown) (no date) (unknown) (unknown) 17:00 (units unknown) (unknown) (unknown) (no date) (unknown) (unknown) 17:15 06/16/22 (units unknown) (unknown) (unknown) (no date) (unknown) (unknown) 17:15 (units unknown) (unknown) (unknown) (no date) (unknown) (unknown) 17:30 06/16/22 (units unknown) (unknown) (unknown) (no date) (unknown) (unknown) 17:45 (units unknown) (unknown) (unknown) (no date) (unknown) (unknown) 17:46 06/16/22 (units unknown) (unknown) (unknown) (no date) (unknown) (unknown) 17:59 (units unknown) (unknown) (unknown) (no date) (unknown) (unknown) 18:00 06/16/22 (units unknown) (unknown) (unknown) (no date) (unknown) (unknown) 18:01 06/16/22 (units unknown) (unknown) (unknown) (no date) (unknown) (unknown) 18:15 06/16/22 (units unknown) (unknown) (unknown) (no date) (unknown) (unknown) 18:15 (units unknown) (unknown) (unknown) (no date) (unknown) (unknown) 18:30 06/16/22 (units unknown) (unknown) (unknown) (no date) (unknown) (unknown) 18:30 (units unknown) (unknown) (unknown) (no date) (unknown) (unknown) 18:45 06/16/22 (units unknown) (unknown) (unknown) (no date) (unknown) (unknown) 19:00 06/16/22 (units unknown) (unknown) (unknown) (no date) (unknown) (unknown) 19:00 (units unknown) (unknown) (unknown) (no date) (unknown) (unknown) 19:15 06/16/22 (units unknown) (unknown) (unknown) (no date) (unknown) (unknown) 19:15 (units unknown) (unknown) (unknown) (no date) (unknown) (unknown) 19:30 06/16/22 (units unknown) (unknown) (unknown) (no date) (unknown) (unknown) 19:45 06/16/22 (units unknown) (unknown) (unknown) (no date) (unknown) (unknown) 19:45 (units unknown) (unknown) (unknown) (no date) (unknown) (unknown) 2. Transaminitis, with elevated alkaline phosphate, acute, present on admission (units unknown) (unknown) (unknown) (no date) (unknown) (unknown) 2.6, phosphorus 4.1, bili 2.1, AST 61, ALT 63, alk-phos 428, total protein 5.8, (units unknown) (unknown) (unknown) (no date) (unknown) (unknown) 20:00 06/16/22 (units unknown) (unknown) (unknown) (no date) (unknown) (unknown) 20:00 (units unknown) (unknown) (unknown) (no date) (unknown) (unknown) 20:15 06/16/22 (units unknown) (unknown) (unknown) (no date) (unknown) (unknown) 20:30 06/16/22 (units unknown) (unknown) (unknown) (no date) (unknown) (unknown) 20:30 (units unknown) (unknown) (unknown) (no date) (unknown) (unknown) 20:45 06/16/22 (units unknown) (unknown) (unknown) (no date) (unknown) (unknown) 20:46 06/16/22 (units unknown) (unknown) (unknown) (no date) (unknown) (unknown) 20:46 (units unknown) (unknown) (unknown) (no date) (unknown) (unknown) 20:55 (units unknown) (unknown) (unknown) (no date) (unknown) (unknown) 20s. During admit interview patient is pleasantly confused orientated to self (units unknown) (unknown) (unknown) (no date) (unknown) (unknown) 4 mos (units unknown) (unknown) (unknown) (no date) (unknown) (unknown) 4.3, repeat 2.7, procalcitonin 3.27, . Sodium 135, BUN 34, glucose 146, (units unknown) (unknown) (unknown) (no date) (unknown) (unknown) 428, total protein 5.8, albumin 3.1, CK 53, initial troponin negative, BNP 1430. (units unknown) (unknown) (unknown) (no date) (unknown) (unknown) 98% on room air. [facility] without (units unknown) (unknown) (unknown) (no date) (unknown) (unknown) 98% on room air. Patient has no WBC, but left shiftneut 8200, initial lactate (units unknown) (unknown) (unknown) (no date) (unknown) (unknown) ALT 63 H (units unknown) (unknown) (unknown) (no date) (unknown) (unknown) ALT (units unknown) (unknown) (unknown) (no date) (unknown) (unknown) APTT 38 H (units unknown) (unknown) (unknown) (no date) (unknown) (unknown) APTT (units unknown) (unknown) (unknown) (no date) (unknown) (unknown) AST 61 H (units unknown) (unknown) (unknown) (no date) (unknown) (unknown) AST (units unknown) (unknown) (unknown) (no date) (unknown) (unknown) Abdomen: Soft nontender, negative for organomegaly, or masses. Bowel sounds (units unknown) (unknown) (unknown) (no date) (unknown) (unknown) Age/Sex: 86 / M (units unknown) (unknown) (unknown) (no date) (unknown) (unknown) Albumin 3.1 L (units unknown) (unknown) (unknown) (no date) (unknown) (unknown) Albumin (units unknown) (unknown) (unknown) (no date) (unknown) (unknown) Albumin/Globulin Ratio 1.1 (units unknown) (unknown) (unknown) (no date) (unknown) (unknown) Albumin/Globulin Ratio (units unknown) (unknown) (unknown) (no date) (unknown) (unknown) Alkaline Phosphatase 428 H (units unknown) (unknown) (unknown) (no date) (unknown) (unknown) Alkaline Phosphatase (units unknown) (unknown) (unknown) (no date) (unknown) (unknown) Allergies (units unknown) (unknown) (unknown) (no date) (unknown) (unknown) Allergy/AdvReac Type Severity Reaction Status Date / Time (units unknown) (unknown) (unknown) (no date) (unknown) (unknown) Assessment + Plan narrative: (units unknown) (unknown) (unknown) (no date) (unknown) (unknown) Assessment + Plan (units unknown) (unknown) (unknown) (no date) (unknown) (unknown) Asthma (units unknown) (unknown) (unknown) (no date) (unknown) (unknown) Atrial fibrillation (units unknown) (unknown) (unknown) (no date) (unknown) (unknown) BUN 34 H (units unknown) (unknown) (unknown) (no date) (unknown) (unknown) BUN (units unknown) (unknown) (unknown) (no date) (unknown) (unknown) BUN/Creatinine Ratio 34.3 H (units unknown) (unknown) (unknown) (no date) (unknown) (unknown) BUN/Creatinine Ratio (units unknown) (unknown) (unknown) (no date) (unknown) (unknown) Baso # (Auto) 100 (units unknown) (unknown) (unknown) (no date) (unknown) (unknown) Baso # (Auto) (units unknown) (unknown) (unknown) (no date) (unknown) (unknown) Baso % (Auto) 0.8 (units unknown) (unknown) (unknown) (no date) (unknown) (unknown) Baso % (Auto) (units unknown) (unknown) (unknown) (no date) (unknown) (unknown) Blood Pressure 141/57 H (units unknown) (unknown) (unknown) (no date) (unknown) (unknown) Blood Pressure 141/73 H (units unknown) (unknown) (unknown) (no date) (unknown) (unknown) Blood Pressure 142/65 H 156/70 H (units unknown) (unknown) (unknown) (no date) (unknown) (unknown) Blood Pressure 142/67 H (units unknown) (unknown) (unknown) (no date) (unknown) (unknown) Blood Pressure 143/67 H (units unknown) (unknown) (unknown) (no date) (unknown) (unknown) Blood Pressure 145/69 H (units unknown) (unknown) (unknown) (no date) (unknown) (unknown) Blood Pressure 146/69 H (units unknown) (unknown) (unknown) (no date) (unknown) (unknown) Blood Pressure 147/71 H 150/72 H (units unknown) (unknown) (unknown) (no date) (unknown) (unknown) Blood Pressure 149/68 H 130/59 L (units unknown) (unknown) (unknown) (no date) (unknown) (unknown) Blood Pressure 149/78 H 155/70 H (units unknown) (unknown) (unknown) (no date) (unknown) (unknown) Blood Pressure 150/73 H (units unknown) (unknown) (unknown) (no date) (unknown) (unknown) Blood Pressure 151/72 H (units unknown) (unknown) (unknown) (no date) (unknown) (unknown) Blood Pressure 154/73 H (units unknown) (unknown) (unknown) (no date) (unknown) (unknown) Blood Pressure 156/72 H 151/72 H (units unknown) (unknown) (unknown) (no date) (unknown) (unknown) Blood Pressure 162/114 H (units unknown) (unknown) (unknown) (no date) (unknown) (unknown) Blood Pressure 164/94 H 164/96 H (units unknown) (unknown) (unknown) (no date) (unknown) (unknown) Blood Pressure 179/74 H 179/94 H (units unknown) (unknown) (unknown) (no date) (unknown) (unknown) Blood Pressure 186/112 H 169/75 H (units unknown) (unknown) (unknown) (no date) (unknown) (unknown) Blood Pressure (units unknown) (unknown) (unknown) (no date) (unknown) (unknown) CK-MB (CK-2) Rel Index TNP (units unknown) (unknown) (unknown) (no date) (unknown) (unknown) CK-MB (CK-2) Rel Index (units unknown) (unknown) (unknown) (no date) (unknown) (unknown) CK-MB (CK-2) TNP (units unknown) (unknown) (unknown) (no date) (unknown) (unknown) CK-MB (CK-2) (units unknown) (unknown) (unknown) (no date) (unknown) (unknown) COVID, influenza a/B/RSV negative (units unknown) (unknown) (unknown) (no date) (unknown) (unknown) Calcium 8.1 L (units unknown) (unknown) (unknown) (no date) (unknown) (unknown) Calcium (units unknown) (unknown) (unknown) (no date) (unknown) (unknown) Carbon Dioxide 28 (units unknown) (unknown) (unknown) (no date) (unknown) (unknown) Carbon Dioxide (units unknown) (unknown) (unknown) (no date) (unknown) (unknown) Cardio: regular rate and rhythm without murmur, rubs, or gallops, no carotid (units unknown) (unknown) (unknown) (no date) (unknown) (unknown) Chest: Equal expansion, positive kyphoscoliosis, no nasal flaring, retractions, (units unknown) (unknown) (unknown) (no date) (unknown) (unknown) Chief complaint: Pain near pacemaker (units unknown) (unknown) (unknown) (no date) (unknown) (unknown) Chloride 99 (units unknown) (unknown) (unknown) (no date) (unknown) (unknown) Chloride (units unknown) (unknown) (unknown) (no date) (unknown) (unknown) Chronic anticoagulation (units unknown) (unknown) (unknown) (no date) (unknown) (unknown) Creatinine 0.99 (units unknown) (unknown) (unknown) (no date) (unknown) (unknown) Creatinine (units unknown) (unknown) (unknown) (no date) (unknown) (unknown) Critical Care time: (units unknown) (unknown) (unknown) (no date) (unknown) (unknown) : 1935 Acct:[id number] (units unknown) (unknown) (unknown) (no date) (unknown) (unknown) Date Patient Seen: 06/16/22 (units unknown) (unknown) (unknown) (no date) (unknown) (unknown) Date of Service: 06/16/22 (units unknown) (unknown) (unknown) (no date) (unknown) (unknown) Yoseph Cardoso is a 86-year-old male with a history of atrial fibrillation, with (units unknown) (unknown) (unknown) (no date) (unknown) (unknown) Due to patient's cognitive impairment/encephal opathy unable to obtain HPI, ROS, (units unknown) (unknown) (unknown) (no date) (unknown) (unknown) EKG atrial sensed ventricular paced rhythm rate 72, abnormal. . Head CT (units unknown) (unknown) (unknown) (no date) (unknown) (unknown) Environment (units unknown) (unknown) (unknown) (no date) (unknown) (unknown) Eos # (Auto) 0 (units unknown) (unknown) (unknown) (no date) (unknown) (unknown) Eos # (Auto) (units unknown) (unknown) (unknown) (no date) (unknown) (unknown) Eos % (Auto) 0.1 L (units unknown) (unknown) (unknown) (no date) (unknown) (unknown) Eos % (Auto) (units unknown) (unknown) (unknown) (no date) (unknown) (unknown) Essential hypertension (units unknown) (unknown) (unknown) (no date) (unknown) (unknown) Estimated GFR > 60 (units unknown) (unknown) (unknown) (no date) (unknown) (unknown) Estimated GFR (units unknown) (unknown) (unknown) (no date) (unknown) (unknown) Exam Narrative: (units unknown) (unknown) (unknown) (no date) (unknown) (unknown) Exam (units unknown) (unknown) (unknown) (no date) (unknown) (unknown) Family + Social History (units unknown) (unknown) (unknown) (no date) (unknown) (unknown) Family History (units unknown) (unknown) (unknown) (no date) (unknown) (unknown) Father Diabetes mellitus (units unknown) (unknown) (unknown) (no date) (unknown) (unknown) Feels Safe in Current Yes, patient lives at home with his . (units unknown) (unknown) (unknown) (no date) (unknown) (unknown) Full range of motion intact radial and pedal pulses are normal. (units unknown) (unknown) (unknown) (no date) (unknown) (unknown) General: Patient is a pleasantly confused cachectic, frail, elderly male, in no (units unknown) (unknown) (unknown) (no date) (unknown) (unknown) Globulin 2.7 (units unknown) (unknown) (unknown) (no date) (unknown) (unknown) Globulin (units unknown) (unknown) (unknown) (no date) (unknown) (unknown) Glucose 146 H (units unknown) (unknown) (unknown) (no date) (unknown) (unknown) Glucose (units unknown) (unknown) (unknown) (no date) (unknown) (unknown) HEENT: Normocephalic, atraumatic, extraocular muscles intact, oral pharynx is (units unknown) (unknown) (unknown) (no date) (unknown) (unknown) Hct 46.6 (units unknown) (unknown) (unknown) (no date) (unknown) (unknown) Hct (units unknown) (unknown) (unknown) (no date) (unknown) (unknown) Head CT negative. CXR ?Possible mild right and retrocardiac opacities Chest CT (units unknown) (unknown) (unknown) (no date) (unknown) (unknown) Hgb 15.4 (units unknown) (unknown) (unknown) (no date) (unknown) (unknown) Hgb (units unknown) (unknown) (unknown) (no date) (unknown) (unknown) History + Physical Report (units unknown) (unknown) (unknown) (no date) (unknown) (unknown) History of Present Illness (units unknown) (unknown) (unknown) (no date) (unknown) (unknown) History of melanoma (units unknown) (unknown) (unknown) (no date) (unknown) (unknown) History of permanent cardiac pacemaker placement (units unknown) (unknown) (unknown) (no date) (unknown) (unknown) History (units unknown) (unknown) (unknown) (no date) (unknown) (unknown) Home Medications and Allergies (units unknown) (unknown) (unknown) (no date) (unknown) (unknown) Home Medications (units unknown) (unknown) (unknown) (no date) (unknown) (unknown) I spent a total of [] minutes of critical care time on this patient's care (units unknown) (unknown) (unknown) (no date) (unknown) (unknown) INR 1.5 H (units unknown) (unknown) (unknown) (no date) (unknown) (unknown) INR (units unknown) (unknown) (unknown) (no date) (unknown) (unknown) Influenza A (RT-PCR) Flu a negative (units unknown) (unknown) (unknown) (no date) (unknown) (unknown) Influenza A (RT-PCR) (units unknown) (unknown) (unknown) (no date) (unknown) (unknown) Influenza B (RT-PCR) Flu b negative (units unknown) (unknown) (unknown) (no date) (unknown) (unknown) Influenza B (RT-PCR) (units unknown) (unknown) (unknown) (no date) (unknown) (unknown) [address] [address] (units unknown) (unknown) (unknown) (no date) (unknown) (unknown) Laboratory Results - last 24 hr (units unknown) (unknown) (unknown) (no date) (unknown) (unknown) Labs (units unknown) (unknown) (unknown) (no date) (unknown) (unknown) Labs: (units unknown) (unknown) (unknown) (no date) (unknown) (unknown) Lactate 2.7 H (units unknown) (unknown) (unknown) (no date) (unknown) (unknown) Lactate 4.3 H* (units unknown) (unknown) (unknown) (no date) (unknown) (unknown) Lactate (units unknown) (unknown) (unknown) (no date) (unknown) (unknown) Lipase 45 (units unknown) (unknown) (unknown) (no date) (unknown) (unknown) Lipase (units unknown) (unknown) (unknown) (no date) (unknown) (unknown) Lungs: Auscultation of all lung troy are clear without adventitious sounds, (units unknown) (unknown) (unknown) (no date) (unknown) (unknown) Lymph # (Auto) 400 L (units unknown) (unknown) (unknown) (no date) (unknown) (unknown) Lymph # (Auto) (units unknown) (unknown) (unknown) (no date) (unknown) (unknown) Lymph % (Auto) 4.6 L (units unknown) (unknown) (unknown) (no date) (unknown) (unknown) Lymph % (Auto) (units unknown) (unknown) (unknown) (no date) (unknown) (unknown) MCH 30.4 (units unknown) (unknown) (unknown) (no date) (unknown) (unknown) MCH (units unknown) (unknown) (unknown) (no date) (unknown) (unknown) MCHC 33.0 (units unknown) (unknown) (unknown) (no date) (unknown) (unknown) MCHC (units unknown) (unknown) (unknown) (no date) (unknown) (unknown) MCV 92.4 (units unknown) (unknown) (unknown) (no date) (unknown) (unknown) MCV (units unknown) (unknown) (unknown) (no date) (unknown) (unknown) Magnesium 2.6 H (units unknown) (unknown) (unknown) (no date) (unknown) (unknown) Magnesium (units unknown) (unknown) (unknown) (no date) (unknown) (unknown) Medical History (Updated 06/17/22 @ 00:55 by Hawa Michael [facility]) (units unknown) (unknown) (unknown) (no date) (unknown) (unknown) Medication Instructions Recorded Confirmed Type (units unknown) (unknown) (unknown) (no date) (unknown) (unknown) Meds (units unknown) (unknown) (unknown) (no date) (unknown) (unknown) [place] # (Auto) 900 (units unknown) (unknown) (unknown) (no date) (unknown) (unknown) [place] # (Auto) (units unknown) (unknown) (unknown) (no date) (unknown) (unknown) [place] % (Auto) 9.4 (units unknown) (unknown) (unknown) (no date) (unknown) (unknown) [place] % (Auto) (units unknown) (unknown) (unknown) (no date) (unknown) (unknown) Mother No problems noted. (units unknown) (unknown) (unknown) (no date) (unknown) (unknown) Musculoskeletal: Diffuse but equal throughout all extremity muscle wasting, no (units unknown) (unknown) (unknown) (no date) (unknown) (unknown) NT-Pro-B Natriuret Pep 1430 H (units unknown) (unknown) (unknown) (no date) (unknown) (unknown) NT-Pro-B Natriuret Pep (units unknown) (unknown) (unknown) (no date) (unknown) (unknown) Narrative (units unknown) (unknown) (unknown) (no date) (unknown) (unknown) Narrative: (units unknown) (unknown) (unknown) (no date) (unknown) (unknown) Negative for JVD (units unknown) (unknown) (unknown) (no date) (unknown) (unknown) Neuro: Alert and orientated x2 Person + Place , moves all extremities, (units unknown) (unknown) (unknown) (no date) (unknown) (unknown) Neut # (Auto) 8200 H (units unknown) (unknown) (unknown) (no date) (unknown) (unknown) Neut # (Auto) (units unknown) (unknown) (unknown) (no date) (unknown) (unknown) Neut % (Auto) 85.1 H (units unknown) (unknown) (unknown) (no date) (unknown) (unknown) Neut % (Auto) (units unknown) (unknown) (unknown) (no date) (unknown) (unknown) Objective (units unknown) (unknown) (unknown) (no date) (unknown) (unknown) Oxygen Delivery Method Room Air (units unknown) (unknown) (unknown) (no date) (unknown) (unknown) Oxygen Delivery Method (units unknown) (unknown) (unknown) (no date) (unknown) (unknown) PT 17.6 H (units unknown) (unknown) (unknown) (no date) (unknown) (unknown) PT (units unknown) (unknown) (unknown) (no date) (unknown) (unknown) Pacemaker (units unknown) (unknown) (unknown) (no date) (unknown) (unknown) Patient History (units unknown) (unknown) (unknown) (no date) (unknown) (unknown) Patient: Yoseph Cardoso MR#: [id number] (units unknown) (unknown) (unknown) (no date) (unknown) (unknown) Phosphorus 4.1 H (units unknown) (unknown) (unknown) (no date) (unknown) (unknown) Phosphorus (units unknown) (unknown) (unknown) (no date) (unknown) (unknown) Plt Count 222 (units unknown) (unknown) (unknown) (no date) (unknown) (unknown) Plt Count (units unknown) (unknown) (unknown) (no date) (unknown) (unknown) Potassium 4.8 (units unknown) (unknown) (unknown) (no date) (unknown) (unknown) Potassium (units unknown) (unknown) (unknown) (no date) (unknown) (unknown) Procalcitonin 3.27 H (units unknown) (unknown) (unknown) (no date) (unknown) (unknown) Procalcitonin (units unknown) (unknown) (unknown) (no date) (unknown) (unknown) 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- (units unknown) (unknown) (unknown) (no date) (unknown) (unknown) Psych: Patient has a well-kept appearance, pleasant affect, mental status (units unknown) (unknown) (unknown) (no date) (unknown) (unknown) Pulse Oximetry 93 100 (units unknown) (unknown) (unknown) (no date) (unknown) (unknown) Pulse Oximetry 94 96 (units unknown) (unknown) (unknown) (no date) (unknown) (unknown) Pulse Oximetry 95 (units unknown) (unknown) (unknown) (no date) (unknown) (unknown) Pulse Oximetry 96 91 (units unknown) (unknown) (unknown) (no date) (unknown) (unknown) Pulse Oximetry 96 99 (units unknown) (unknown) (unknown) (no date) (unknown) (unknown) Pulse Oximetry 96 (units unknown) (unknown) (unknown) (no date) (unknown) (unknown) Pulse Oximetry 97 96 97 (units unknown) (unknown) (unknown) (no date) (unknown) (unknown) Pulse Oximetry 97 97 98 (units unknown) (unknown) (unknown) (no date) (unknown) (unknown) Pulse Oximetry 97 97 (units unknown) (unknown) (unknown) (no date) (unknown) (unknown) Pulse Oximetry 97 (units unknown) (unknown) (unknown) (no date) (unknown) (unknown) Pulse Oximetry 98 97 (units unknown) (unknown) (unknown) (no date) (unknown) (unknown) Pulse Oximetry 98 (units unknown) (unknown) (unknown) (no date) (unknown) (unknown) Pulse Oximetry (units unknown) (unknown) (unknown) (no date) (unknown) (unknown) Pulse Rate 111 H (units unknown) (unknown) (unknown) (no date) (unknown) (unknown) Pulse Rate 114 H 118 H (units unknown) (unknown) (unknown) (no date) (unknown) (unknown) Pulse Rate 154 H (units unknown) (unknown) (unknown) (no date) (unknown) (unknown) Pulse Rate 72 66 (units unknown) (unknown) (unknown) (no date) (unknown) (unknown) Pulse Rate 72 71 (units unknown) (unknown) (unknown) (no date) (unknown) (unknown) Pulse Rate 72 74 (units unknown) (unknown) (unknown) (no date) (unknown) (unknown) Pulse Rate 72 (units unknown) (unknown) (unknown) (no date) (unknown) (unknown) Pulse Rate 73 74 (units unknown) (unknown) (unknown) (no date) (unknown) (unknown) Pulse Rate 73 87 98 H (units unknown) (unknown) (unknown) (no date) (unknown) (unknown) Pulse Rate 73 (units unknown) (unknown) (unknown) (no date) (unknown) (unknown) Pulse Rate 74 104 H 106 H (units unknown) (unknown) (unknown) (no date) (unknown) (unknown) Pulse Rate 75 116 H (units unknown) (unknown) (unknown) (no date) (unknown) (unknown) Pulse Rate 75 70 (units unknown) (unknown) (unknown) (no date) (unknown) (unknown) Pulse Rate 75 74 74 (units unknown) (unknown) (unknown) (no date) (unknown) (unknown) Pulse Rate 75 (units unknown) (unknown) (unknown) (no date) (unknown) (unknown) Pulse Rate 76 (units unknown) (unknown) (unknown) (no date) (unknown) (unknown) Pulse Rate 78 75 (units unknown) (unknown) (unknown) (no date) (unknown) (unknown) Pulse Rate 84 77 (units unknown) (unknown) (unknown) (no date) (unknown) (unknown) Pulse Rate 86 72 (units unknown) (unknown) (unknown) (no date) (unknown) (unknown) Pulse Rate 98 H (units unknown) (unknown) (unknown) (no date) (unknown) (unknown) RBC 5.05 (units unknown) (unknown) (unknown) (no date) (unknown) (unknown) RBC (units unknown) (unknown) (unknown) (no date) (unknown) (unknown) RDW 14.4 (units unknown) (unknown) (unknown) (no date) (unknown) (unknown) RDW (units unknown) (unknown) (unknown) (no date) (unknown) (unknown) RSV (PCR) Negative (units unknown) (unknown) (unknown) (no date) (unknown) (unknown) RSV (PCR) (units unknown) (unknown) (unknown) (no date) (unknown) (unknown) Respiratory Rate 12 25 H (units unknown) (unknown) (unknown) (no date) (unknown) (unknown) Respiratory Rate 13 26 H (units unknown) (unknown) (unknown) (no date) (unknown) (unknown) Respiratory Rate 16 20 (units unknown) (unknown) (unknown) (no date) (unknown) (unknown) Respiratory Rate 17 26 H (units unknown) (unknown) (unknown) (no date) (unknown) (unknown) Respiratory Rate 17 (units unknown) (unknown) (unknown) (no date) (unknown) (unknown) Respiratory Rate 18 32 H (units unknown) (unknown) (unknown) (no date) (unknown) (unknown) Respiratory Rate 18 (units unknown) (unknown) (unknown) (no date) (unknown) (unknown) Respiratory Rate 19 18 (units unknown) (unknown) (unknown) (no date) (unknown) (unknown) Respiratory Rate 19 34 H 39 H (units unknown) (unknown) (unknown) (no date) (unknown) (unknown) Respiratory Rate 19 (units unknown) (unknown) (unknown) (no date) (unknown) (unknown) Respiratory Rate 20 (units unknown) (unknown) (unknown) (no date) (unknown) (unknown) Respiratory Rate 22 20 (units unknown) (unknown) (unknown) (no date) (unknown) (unknown) Respiratory Rate 23 17 16 (units unknown) (unknown) (unknown) (no date) (unknown) (unknown) Respiratory Rate 23 18 (units unknown) (unknown) (unknown) (no date) (unknown) (unknown) Respiratory Rate 24 19 (units unknown) (unknown) (unknown) (no date) (unknown) (unknown) Respiratory Rate 24 23 (units unknown) (unknown) (unknown) (no date) (unknown) (unknown) Respiratory Rate 27 H (units unknown) (unknown) (unknown) (no date) (unknown) (unknown) Respiratory Rate 29 H (units unknown) (unknown) (unknown) (no date) (unknown) (unknown) Respiratory Rate 30 H 24 (units unknown) (unknown) (unknown) (no date) (unknown) (unknown) Respiratory Rate (units unknown) (unknown) (unknown) (no date) (unknown) (unknown) Review of Systems (units unknown) (unknown) (unknown) (no date) (unknown) (unknown) SARS-CoV-2 (PCR) Negative (units unknown) (unknown) (unknown) (no date) (unknown) (unknown) SARS-CoV-2 (PCR) (units unknown) (unknown) (unknown) (no date) (unknown) (unknown) Safety + Behavioral: (units unknown) (unknown) (unknown) (no date) (unknown) (unknown) Signed By: (units unknown) (unknown) (unknown) (no date) (unknown) (unknown) Skin: Warm Very dry, poor turgor, appears significantly dehydrated and wasting (units unknown) (unknown) (unknown) (no date) (unknown) (unknown) Smoking Status never (units unknown) (unknown) (unknown) (no date) (unknown) (unknown) Sodium 135 L (units unknown) (unknown) (unknown) (no date) (unknown) (unknown) Sodium (units unknown) (unknown) (unknown) (no date) (unknown) (unknown) Substance Use Type does not use (units unknown) (unknown) (unknown) (no date) (unknown) (unknown) Surgical History (Updated 06/16/22 @ 21:27 by JOSE Crystal) (units unknown) (unknown) (unknown) (no date) (unknown) (unknown) Temperature 98.1 F (units unknown) (unknown) (unknown) (no date) (unknown) (unknown) Temperature (units unknown) (unknown) (unknown) (no date) (unknown) (unknown) Time Patient Seen: 15:35 (units unknown) (unknown) (unknown) (no date) (unknown) (unknown) Time Spent With Patient (units unknown) (unknown) (unknown) (no date) (unknown) (unknown) Tobacco + Substance use: (units unknown) (unknown) (unknown) (no date) (unknown) (unknown) Total Bilirubin 2.1 H (units unknown) (unknown) (unknown) (no date) (unknown) (unknown) Total Bilirubin (units unknown) (unknown) (unknown) (no date) (unknown) (unknown) Total Creatine Kinase 53 L (units unknown) (unknown) (unknown) (no date) (unknown) (unknown) Total Creatine Kinase (units unknown) (unknown) (unknown) (no date) (unknown) (unknown) Total Protein 5.8 L (units unknown) (unknown) (unknown) (no date) (unknown) (unknown) Total Protein (units unknown) (unknown) (unknown) (no date) (unknown) (unknown) Troponin I < 0.012 (units unknown) (unknown) (unknown) (no date) (unknown) (unknown) Troponin I (units unknown) (unknown) (unknown) (no date) (unknown) (unknown) Upon admit BP 149/78, tachycardic heart rate 154, tachypneic R 29, O2 saturation (units unknown) (unknown) (unknown) (no date) (unknown) (unknown) Ur Bilirubin Confirm Positive H (units unknown) (unknown) (unknown) (no date) (unknown) (unknown) Ur Bilirubin Confirm (units unknown) (unknown) (unknown) (no date) (unknown) (unknown) Ur Culture Indicated? Specimen cultured (units unknown) (unknown) (unknown) (no date) (unknown) (unknown) Ur Culture Indicated? (units unknown) (unknown) (unknown) (no date) (unknown) (unknown) Ur Leukocyte Esterase Trace H (units unknown) (unknown) (unknown) (no date) (unknown) (unknown) Ur Leukocyte Esterase (units unknown) (unknown) (unknown) (no date) (unknown) (unknown) Ur Specific [place] 1.020 (units unknown) (unknown) (unknown) (no date) (unknown) (unknown) Ur Specific [place] (units unknown) (unknown) (unknown) (no date) (unknown) (unknown) Ur Squamous Epith Cells 1-5 /hpf (units unknown) (unknown) (unknown) (no date) (unknown) (unknown) Ur Squamous Epith Cells (units unknown) (unknown) (unknown) (no date) (unknown) (unknown) Urine Appearance Cloudy (units unknown) (unknown) (unknown) (no date) (unknown) (unknown) Urine Appearance (units unknown) (unknown) (unknown) (no date) (unknown) (unknown) Urine Bacteria None seen (units unknown) (unknown) (unknown) (no date) (unknown) (unknown) Urine Bacteria (units unknown) (unknown) (unknown) (no date) (unknown) (unknown) Urine Bilirubin 3+ H (units unknown) (unknown) (unknown) (no date) (unknown) (unknown) Urine Bilirubin (units unknown) (unknown) (unknown) (no date) (unknown) (unknown) Urine Color Brown (units unknown) (unknown) (unknown) (no date) (unknown) (unknown) Urine Color (units unknown) (unknown) (unknown) (no date) (unknown) (unknown) Urine Glucose (UA) Negative (units unknown) (unknown) (unknown) (no date) (unknown) (unknown) Urine Glucose (UA) (units unknown) (unknown) (unknown) (no date) (unknown) (unknown) Urine Ketones 1+ H (units unknown) (unknown) (unknown) (no date) (unknown) (unknown) Urine Ketones (units unknown) (unknown) (unknown) (no date) (unknown) (unknown) Urine Nitrate Positive H (units unknown) (unknown) (unknown) (no date) (unknown) (unknown) Urine Nitrate (units unknown) (unknown) (unknown) (no date) (unknown) (unknown) Urine Occult Blood Trace-intact (units unknown) (unknown) (unknown) (no date) (unknown) (unknown) Urine Occult Blood (units unknown) (unknown) (unknown) (no date) (unknown) (unknown) Urine Protein 1+ H (units unknown) (unknown) (unknown) (no date) (unknown) (unknown) Urine Protein (units unknown) (unknown) (unknown) (no date) (unknown) (unknown) Urine RBC 10-30/hpf H (units unknown) (unknown) (unknown) (no date) (unknown) (unknown) Urine RBC (units unknown) (unknown) (unknown) (no date) (unknown) (unknown) Urine Urobilinogen 1.0 (units unknown) (unknown) (unknown) (no date) (unknown) (unknown) Urine Urobilinogen (units unknown) (unknown) (unknown) (no date) (unknown) (unknown) Urine WBC 1-5/hpf (units unknown) (unknown) (unknown) (no date) (unknown) (unknown) Urine WBC (units unknown) (unknown) (unknown) (no date) (unknown) (unknown) Urine pH 6.5 (units unknown) (unknown) (unknown) (no date) (unknown) (unknown) Urine pH (units unknown) (unknown) (unknown) (no date) (unknown) (unknown) Vital Signs (units unknown) (unknown) (unknown) (no date) (unknown) (unknown) WBC 9.6 (units unknown) (unknown) (unknown) (no date) (unknown) (unknown) WBC (units unknown) (unknown) (unknown) (no date) (unknown) (unknown) [Embedded Image Not Available] (units unknown) (unknown) (unknown) (no date) (unknown) (unknown) [From Prevnar] and feet x (units unknown) (unknown) (unknown) (no date) (unknown) (unknown) a recent 30 lb weight loss, and night sweats with a shuffling gait x6 weeks. He (units unknown) (unknown) (unknown) (no date) (unknown) (unknown) after. (units unknown) (unknown) (unknown) (no date) (unknown) (unknown) albumin 3.1, CK 53, initial troponin negative, BNP 1430. EKG atrial sensed (units unknown) (unknown) (unknown) (no date) (unknown) (unknown) alcohol intake frequency a few times a month (units unknown) (unknown) (unknown) (no date) (unknown) (unknown) amlodipine 5 mg tablet 5 mg PO DAILY 06/16/22 06/16/22 History (units unknown) (unknown) (unknown) (no date) (unknown) (unknown) and intact without rashes, ulcerations or petechiae. (units unknown) (unknown) (unknown) (no date) (unknown) (unknown) and place, but a very poor historian, stated that 'he came in today by himself (units unknown) (unknown) (unknown) (no date) (unknown) (unknown) apixaban 5 mg tablet (Eliquis) 5 mg PO BID blood thinner 06/16/22 06/16/22 (units unknown) (unknown) (unknown) (no date) (unknown) (unknown) appears is no distress at this time, no apparent jaundice, right upper quadrant (units unknown) (unknown) (unknown) (no date) (unknown) (unknown) are present in all 4 quadrants without guarding or rebound, no CVA tenderness. (units unknown) (unknown) (unknown) (no date) (unknown) (unknown) attitude thought context and judgment are inappropriate- confused, poor (units unknown) (unknown) (unknown) (no date) (unknown) (unknown) because he had black urine this morning'. He did not recall seeing Dr. Gillette, (units unknown) (unknown) (unknown) (no date) (unknown) (unknown) bruit, no cardiac pulsations present. (units unknown) (unknown) (unknown) (no date) (unknown) (unknown) calcium 8.1, magnesium 2.6, phosphorus 4.1, bili 2.1, AST 61, ALT 63, alk-phos (units unknown) (unknown) (unknown) (no date) (unknown) (unknown) cardiology's office due to deteriorating health concerns. patient admitted for (units unknown) (unknown) (unknown) (no date) (unknown) (unknown) cardiology's office due to his significant presentation of cachexia, weakness, (units unknown) (unknown) (unknown) (no date) (unknown) (unknown) clear and mucous membranes are dry. Neck is supple and symmetric, trachea is (units unknown) (unknown) (unknown) (no date) (unknown) (unknown) conjugate to of hands (units unknown) (unknown) (unknown) (no date) (unknown) (unknown) demonstrated bibasilar infiltrates versus inflammatory pulmonary opacities mild (units unknown) (unknown) (unknown) (no date) (unknown) (unknown) differential also includes neoplastic processes as well as infectious (units unknown) (unknown) (unknown) (no date) (unknown) (unknown) difficulty, struggles slightly with given directions. Patient has no WBC, but (units unknown) (unknown) (unknown) (no date) (unknown) (unknown) distress at this time. (units unknown) (unknown) (unknown) (no date) (unknown) (unknown) etiologies such as micro abscesses (units unknown) (unknown) (unknown) (no date) (unknown) (unknown) fluticasone propionate 44 44 mcg inhalation DAILY 06/16/22 06/16/22 History (units unknown) (unknown) (unknown) (no date) (unknown) (unknown) for mild sepsis, transaminitis, UTI, encephalopathy. (units unknown) (unknown) (unknown) (no date) (unknown) (unknown) gabapentin 300 mg capsule 300 mg PO BID 06/16/22 06/16/22 History (units unknown) (unknown) (unknown) (no date) (unknown) (unknown) historian. 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 Numerous (units unknown) (unknown) (unknown) (no date) (unknown) (unknown) malaise, balance coordination issues, and concerns for neoplastic syndrome with (units unknown) (unknown) (unknown) (no date) (unknown) (unknown) mcg/actuation HFA aerosol inhaler (units unknown) (unknown) (unknown) (no date) (unknown) (unknown) medication reconciliation accurately. (units unknown) (unknown) (unknown) (no date) (unknown) (unknown) midline, no adenopathy, no thyroid enlargement, nontender, no masses palpated. (units unknown) (unknown) (unknown) (no date) (unknown) (unknown) mild sepsis, transaminitis, UTI, encephalopathy. (units unknown) (unknown) (unknown) (no date) (unknown) (unknown) negative. 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 Patient denies any pain, and (units unknown) (unknown) (unknown) (no date) (unknown) (unknown) obvious deformity, crepitus, effusions, cyanosis, clubbing or edema present. (units unknown) (unknown) (unknown) (no date) (unknown) (unknown) on room air. (units unknown) (unknown) (unknown) (no date) (unknown) (unknown) opacities mild to moderate right greater than left pulmonary effusion. (units unknown) (unknown) (unknown) (no date) (unknown) (unknown) or labored breathing, mildly tachypneic. 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 Gillette (units unknown) (unknown) (unknown) (no date) (unknown) (unknown) pain, or fever. (units unknown) (unknown) (unknown) (no date) (unknown) (unknown) pneumococcal 7-valent AdvReac Intermediate swelling Verified 06/16/22 12:46 (units unknown) (unknown) (unknown) (no date) (unknown) (unknown) present on admission (units unknown) (unknown) (unknown) (no date) (unknown) (unknown) sensation to touch intact, no gross deficits noted of cranial nerves. (units unknown) (unknown) (unknown) (no date) (unknown) (unknown) shuffling gait x6 weeks. (units unknown) (unknown) (unknown) (no date) (unknown) (unknown) small hypoattenuating lesions throughout the spleen are also nonspecific and the (units unknown) (unknown) (unknown) (no date) (unknown) (unknown) tachycardia with heart rates 111-154, and tachypneic respiratory rate in the (units unknown) (unknown) (unknown) (no date) (unknown) (unknown) to moderate right greater than left pulmonary effusion. SOFA:2 patient admitted (units unknown) (unknown) (unknown) (no date) (unknown) (unknown) to moderate right greater than left pulmonary effusion. patient admitted for (units unknown) (unknown) (unknown) (no date) (unknown) (unknown) today; this time is exclusive of procedural time. (units unknown) (unknown) (unknown) (no date) (unknown) (unknown) unsure if this is the patient's baseline. Due to cognitive impairment unable to (units unknown) (unknown) (unknown) (no date) (unknown) (unknown) ventricular paced rhythm rate 72, abnormal. COVID, influenza a/B/RSV negative. (units unknown) (unknown) (unknown) (no date) (unknown) (unknown) was brought into the ED by his . In ED patient demonstrated escalating (units unknown) (unknown) (unknown) (no date) (unknown) (unknown) wheezes, rhonchi, or rales. (units unknown) (unknown) Result panel 220 (unknown) (no date) (unknown) (unknown) (no value) (units unknown) (unknown) (unknown) (no date) (unknown) (unknown) (Flovent HFA) (units unknown) (unknown) (unknown) (no date) (unknown) (unknown) (past 8 hours): (units unknown) (unknown) (unknown) (no date) (unknown) (unknown) - CXR ?Possible mild right and retrocardiac opacities (units unknown) (unknown) (unknown) (no date) (unknown) (unknown) -ABD/Pelvis CT:?Multiple ill-defined hypoattenuating mass lesions throughout the (units unknown) (unknown) (unknown) (no date) (unknown) (unknown) -BLD/Urine culture pending (units unknown) (unknown) (unknown) (no date) (unknown) (unknown) -Chest CT demonstrated bibasilar infiltrates versus inflammatory pulmonary (units unknown) (unknown) (unknown) (no date) (unknown) (unknown) -ED:heart rates 111-154, and tachypneic respiratory rate in the 20s. (1L bolus) (units unknown) (unknown) (unknown) (no date) (unknown) (unknown) -GGT 516 -Ordered RT upper Quad U/S tomorrow -may require (units unknown) (unknown) (unknown) (no date) (unknown) (unknown) -NPO (units unknown) (unknown) (unknown) (no date) (unknown) (unknown) -Negative Fever, jaundice, right upper quadrant pain (units unknown) (unknown) (unknown) (no date) (unknown) (unknown) -Ordered: CRP, ESR, AFP, EPO, hepatitis panel-trend LFT's, and inflammatory (units unknown) (unknown) (unknown) (no date) (unknown) (unknown) -R Factor: 0.4 cholestatic injury- Ordered ABD/P CT (units unknown) (unknown) (unknown) (no date) (unknown) (unknown) -SOFA:2 (units unknown) (unknown) (unknown) (no date) (unknown) (unknown) -WBC neg, neut# 8200, initial lactate 4.3, repeat 2.7, procalcitonin 3.27, (units unknown) (unknown) (unknown) (no date) (unknown) (unknown) -admit BP 149/78, tachycardic heart rate 154, tachypneic R 29, O2 saturation 98% (units unknown) (unknown) (unknown) (no date) (unknown) (unknown) -cachexia, weakness, malaise balance coordination issues, and concerns for (units unknown) (unknown) (unknown) (no date) (unknown) (unknown) -monitor for septic shock (units unknown) (unknown) (unknown) (no date) (unknown) (unknown) -ordered 1L bolus followed by NS @100 cc/HR (units unknown) (unknown) (unknown) (no date) (unknown) (unknown) -phosphorus 4.1, bili 2.1, AST 61, ALT 63, alk-phos 428, total protein 5.8,PT (units unknown) (unknown) (unknown) (no date) (unknown) (unknown) -placed general surgery consult Dr. Turner (units unknown) (unknown) (unknown) (no date) (unknown) (unknown) -positive nitrate urinalysis culture pending, transaminitis (units unknown) (unknown) (unknown) (no date) (unknown) (unknown) [id number] (units unknown) (unknown) (unknown) (no date) (unknown) (unknown) 06/16/22 06/16/22 06/16/22 (units unknown) (unknown) (unknown) (no date) (unknown) (unknown) 06/16/22 06/16/22 (units unknown) (unknown) (unknown) (no date) (unknown) (unknown) 06/16/22 12:35 (units unknown) (unknown) (unknown) (no date) (unknown) (unknown) 06/16/22 (units unknown) (unknown) (unknown) (no date) (unknown) (unknown) 1. Sepsis without septic shock, likely hepatobiliary origin, and UTI, acute, (units unknown) (unknown) (unknown) (no date) (unknown) (unknown) 12:35 12:35 12:35 (units unknown) (unknown) (unknown) (no date) (unknown) (unknown) 13:15 06/16/22 (units unknown) (unknown) (unknown) (no date) (unknown) (unknown) 13:30 (units unknown) (unknown) (unknown) (no date) (unknown) (unknown) 13:45 06/16/22 (units unknown) (unknown) (unknown) (no date) (unknown) (unknown) 13:46 06/16/22 (units unknown) (unknown) (unknown) (no date) (unknown) (unknown) 13:46 (units unknown) (unknown) (unknown) (no date) (unknown) (unknown) 14:00 06/16/22 (units unknown) (unknown) (unknown) (no date) (unknown) (unknown) 14:24 (units unknown) (unknown) (unknown) (no date) (unknown) (unknown) 14:30 06/16/22 (units unknown) (unknown) (unknown) (no date) (unknown) (unknown) 14:45 06/16/22 (units unknown) (unknown) (unknown) (no date) (unknown) (unknown) 15:00 (units unknown) (unknown) (unknown) (no date) (unknown) (unknown) 15:15 06/16/22 (units unknown) (unknown) (unknown) (no date) (unknown) (unknown) 15:30 06/16/22 (units unknown) (unknown) (unknown) (no date) (unknown) (unknown) 15:30 17:55 (units unknown) (unknown) (unknown) (no date) (unknown) (unknown) 15:34 06/16/22 (units unknown) (unknown) (unknown) (no date) (unknown) (unknown) 15:34 (units unknown) (unknown) (unknown) (no date) (unknown) (unknown) 15:45 06/16/22 (units unknown) (unknown) (unknown) (no date) (unknown) (unknown) 15:45 (units unknown) (unknown) (unknown) (no date) (unknown) (unknown) 16:00 06/16/22 (units unknown) (unknown) (unknown) (no date) (unknown) (unknown) 16:15 06/16/22 (units unknown) (unknown) (unknown) (no date) (unknown) (unknown) 16:15 (units unknown) (unknown) (unknown) (no date) (unknown) (unknown) 16:30 06/16/22 (units unknown) (unknown) (unknown) (no date) (unknown) (unknown) 16:31 06/16/22 (units unknown) (unknown) (unknown) (no date) (unknown) (unknown) 16:31 (units unknown) (unknown) (unknown) (no date) (unknown) (unknown) 16:45 06/16/22 (units unknown) (unknown) (unknown) (no date) (unknown) (unknown) 17.6, INR 1.5, PTT 38 (units unknown) (unknown) (unknown) (no date) (unknown) (unknown) 17.6, INR 1.5, PTT 38. Sodium 135, BUN 34, glucose 146, calcium 8.1, magnesium (units unknown) (unknown) (unknown) (no date) (unknown) (unknown) 17:00 06/16/22 (units unknown) (unknown) (unknown) (no date) (unknown) (unknown) 17:00 (units unknown) (unknown) (unknown) (no date) (unknown) (unknown) 17:15 06/16/22 (units unknown) (unknown) (unknown) (no date) (unknown) (unknown) 17:15 (units unknown) (unknown) (unknown) (no date) (unknown) (unknown) 17:30 06/16/22 (units unknown) (unknown) (unknown) (no date) (unknown) (unknown) 17:45 (units unknown) (unknown) (unknown) (no date) (unknown) (unknown) 17:46 06/16/22 (units unknown) (unknown) (unknown) (no date) (unknown) (unknown) 17:59 (units unknown) (unknown) (unknown) (no date) (unknown) (unknown) 18:00 06/16/22 (units unknown) (unknown) (unknown) (no date) (unknown) (unknown) 18:01 06/16/22 (units unknown) (unknown) (unknown) (no date) (unknown) (unknown) 18:15 06/16/22 (units unknown) (unknown) (unknown) (no date) (unknown) (unknown) 18:15 (units unknown) (unknown) (unknown) (no date) (unknown) (unknown) 18:30 06/16/22 (units unknown) (unknown) (unknown) (no date) (unknown) (unknown) 18:30 (units unknown) (unknown) (unknown) (no date) (unknown) (unknown) 18:45 06/16/22 (units unknown) (unknown) (unknown) (no date) (unknown) (unknown) 19:00 06/16/22 (units unknown) (unknown) (unknown) (no date) (unknown) (unknown) 19:00 (units unknown) (unknown) (unknown) (no date) (unknown) (unknown) 19:15 06/16/22 (units unknown) (unknown) (unknown) (no date) (unknown) (unknown) 19:15 (units unknown) (unknown) (unknown) (no date) (unknown) (unknown) 19:30 06/16/22 (units unknown) (unknown) (unknown) (no date) (unknown) (unknown) 19:45 06/16/22 (units unknown) (unknown) (unknown) (no date) (unknown) (unknown) 19:45 (units unknown) (unknown) (unknown) (no date) (unknown) (unknown) 2. Transaminitis, with elevated alkaline phosphate, acute, present on admission (units unknown) (unknown) (unknown) (no date) (unknown) (unknown) 2.6, phosphorus 4.1, bili 2.1, AST 61, ALT 63, alk-phos 428, total protein 5.8, (units unknown) (unknown) (unknown) (no date) (unknown) (unknown) 20:00 06/16/22 (units unknown) (unknown) (unknown) (no date) (unknown) (unknown) 20:00 (units unknown) (unknown) (unknown) (no date) (unknown) (unknown) 20:15 06/16/22 (units unknown) (unknown) (unknown) (no date) (unknown) (unknown) 20:30 06/16/22 (units unknown) (unknown) (unknown) (no date) (unknown) (unknown) 20:30 (units unknown) (unknown) (unknown) (no date) (unknown) (unknown) 20:45 06/16/22 (units unknown) (unknown) (unknown) (no date) (unknown) (unknown) 20:46 06/16/22 (units unknown) (unknown) (unknown) (no date) (unknown) (unknown) 20:46 (units unknown) (unknown) (unknown) (no date) (unknown) (unknown) 20:55 (units unknown) (unknown) (unknown) (no date) (unknown) (unknown) 20s. During admit interview patient is pleasantly confused orientated to self (units unknown) (unknown) (unknown) (no date) (unknown) (unknown) 4 mos (units unknown) (unknown) (unknown) (no date) (unknown) (unknown) 4.3, repeat 2.7, procalcitonin 3.27, . Sodium 135, BUN 34, glucose 146, (units unknown) (unknown) (unknown) (no date) (unknown) (unknown) 428, total protein 5.8, albumin 3.1, CK 53, initial troponin negative, BNP 1430. (units unknown) (unknown) (unknown) (no date) (unknown) (unknown) 98% on room air. Patient did get up and ambulate to the restroom w/MA without (units unknown) (unknown) (unknown) (no date) (unknown) (unknown) 98% on room air. Patient has no WBC, but left shiftneut 8200, initial lactate (units unknown) (unknown) (unknown) (no date) (unknown) (unknown) ALT 63 H (units unknown) (unknown) (unknown) (no date) (unknown) (unknown) ALT (units unknown) (unknown) (unknown) (no date) (unknown) (unknown) APTT 38 H (units unknown) (unknown) (unknown) (no date) (unknown) (unknown) APTT (units unknown) (unknown) (unknown) (no date) (unknown) (unknown) AST 61 H (units unknown) (unknown) (unknown) (no date) (unknown) (unknown) AST (units unknown) (unknown) (unknown) (no date) (unknown) (unknown) Abdomen: Soft nontender, negative for organomegaly, or masses. Bowel sounds (units unknown) (unknown) (unknown) (no date) (unknown) (unknown) Age/Sex: 86 / M (units unknown) (unknown) (unknown) (no date) (unknown) (unknown) Albumin 3.1 L (units unknown) (unknown) (unknown) (no date) (unknown) (unknown) Albumin (units unknown) (unknown) (unknown) (no date) (unknown) (unknown) Albumin/Globulin Ratio 1.1 (units unknown) (unknown) (unknown) (no date) (unknown) (unknown) Albumin/Globulin Ratio (units unknown) (unknown) (unknown) (no date) (unknown) (unknown) Alkaline Phosphatase 428 H (units unknown) (unknown) (unknown) (no date) (unknown) (unknown) Alkaline Phosphatase (units unknown) (unknown) (unknown) (no date) (unknown) (unknown) Allergies (units unknown) (unknown) (unknown) (no date) (unknown) (unknown) Allergy/AdvReac Type Severity Reaction Status Date / Time (units unknown) (unknown) (unknown) (no date) (unknown) (unknown) Assessment + Plan narrative: (units unknown) (unknown) (unknown) (no date) (unknown) (unknown) Assessment + Plan (units unknown) (unknown) (unknown) (no date) (unknown) (unknown) Asthma (units unknown) (unknown) (unknown) (no date) (unknown) (unknown) Atrial fibrillation (units unknown) (unknown) (unknown) (no date) (unknown) (unknown) BUN 34 H (units unknown) (unknown) (unknown) (no date) (unknown) (unknown) BUN (units unknown) (unknown) (unknown) (no date) (unknown) (unknown) BUN/Creatinine Ratio 34.3 H (units unknown) (unknown) (unknown) (no date) (unknown) (unknown) BUN/Creatinine Ratio (units unknown) (unknown) (unknown) (no date) (unknown) (unknown) Baso # (Auto) 100 (units unknown) (unknown) (unknown) (no date) (unknown) (unknown) Baso # (Auto) (units unknown) (unknown) (unknown) (no date) (unknown) (unknown) Baso % (Auto) 0.8 (units unknown) (unknown) (unknown) (no date) (unknown) (unknown) Baso % (Auto) (units unknown) (unknown) (unknown) (no date) (unknown) (unknown) Blood Pressure 141/57 H (units unknown) (unknown) (unknown) (no date) (unknown) (unknown) Blood Pressure 141/73 H (units unknown) (unknown) (unknown) (no date) (unknown) (unknown) Blood Pressure 142/65 H 156/70 H (units unknown) (unknown) (unknown) (no date) (unknown) (unknown) Blood Pressure 142/67 H (units unknown) (unknown) (unknown) (no date) (unknown) (unknown) Blood Pressure 143/67 H (units unknown) (unknown) (unknown) (no date) (unknown) (unknown) Blood Pressure 145/69 H (units unknown) (unknown) (unknown) (no date) (unknown) (unknown) Blood Pressure 146/69 H (units unknown) (unknown) (unknown) (no date) (unknown) (unknown) Blood Pressure 147/71 H 150/72 H (units unknown) (unknown) (unknown) (no date) (unknown) (unknown) Blood Pressure 149/68 H 130/59 L (units unknown) (unknown) (unknown) (no date) (unknown) (unknown) Blood Pressure 149/78 H 155/70 H (units unknown) (unknown) (unknown) (no date) (unknown) (unknown) Blood Pressure 150/73 H (units unknown) (unknown) (unknown) (no date) (unknown) (unknown) Blood Pressure 151/72 H (units unknown) (unknown) (unknown) (no date) (unknown) (unknown) Blood Pressure 154/73 H (units unknown) (unknown) (unknown) (no date) (unknown) (unknown) Blood Pressure 156/72 H 151/72 H (units unknown) (unknown) (unknown) (no date) (unknown) (unknown) Blood Pressure 162/114 H (units unknown) (unknown) (unknown) (no date) (unknown) (unknown) Blood Pressure 164/94 H 164/96 H (units unknown) (unknown) (unknown) (no date) (unknown) (unknown) Blood Pressure 179/74 H 179/94 H (units unknown) (unknown) (unknown) (no date) (unknown) (unknown) Blood Pressure 186/112 H 169/75 H (units unknown) (unknown) (unknown) (no date) (unknown) (unknown) Blood Pressure (units unknown) (unknown) (unknown) (no date) (unknown) (unknown) CK-MB (CK-2) Rel Index TNP (units unknown) (unknown) (unknown) (no date) (unknown) (unknown) CK-MB (CK-2) Rel Index (units unknown) (unknown) (unknown) (no date) (unknown) (unknown) CK-MB (CK-2) TNP (units unknown) (unknown) (unknown) (no date) (unknown) (unknown) CK-MB (CK-2) (units unknown) (unknown) (unknown) (no date) (unknown) (unknown) COVID, influenza a/B/RSV negative (units unknown) (unknown) (unknown) (no date) (unknown) (unknown) Calcium 8.1 L (units unknown) (unknown) (unknown) (no date) (unknown) (unknown) Calcium (units unknown) (unknown) (unknown) (no date) (unknown) (unknown) Carbon Dioxide 28 (units unknown) (unknown) (unknown) (no date) (unknown) (unknown) Carbon Dioxide (units unknown) (unknown) (unknown) (no date) (unknown) (unknown) Cardio: regular rate and rhythm without murmur, rubs, or gallops, no carotid (units unknown) (unknown) (unknown) (no date) (unknown) (unknown) Chest: Equal expansion, positive kyphoscoliosis, no nasal flaring, retractions, (units unknown) (unknown) (unknown) (no date) (unknown) (unknown) Chief complaint: Pain near pacemaker (units unknown) (unknown) (unknown) (no date) (unknown) (unknown) Chloride 99 (units unknown) (unknown) (unknown) (no date) (unknown) (unknown) Chloride (units unknown) (unknown) (unknown) (no date) (unknown) (unknown) Chronic anticoagulation (units unknown) (unknown) (unknown) (no date) (unknown) (unknown) Creatinine 0.99 (units unknown) (unknown) (unknown) (no date) (unknown) (unknown) Creatinine (units unknown) (unknown) (unknown) (no date) (unknown) (unknown) Critical Care time: (units unknown) (unknown) (unknown) (no date) (unknown) (unknown) : 1935 Acct:[id number] (units unknown) (unknown) (unknown) (no date) (unknown) (unknown) Date Patient Seen: 06/16/22 (units unknown) (unknown) (unknown) (no date) (unknown) (unknown) Date of Service: 06/16/22 (units unknown) (unknown) (unknown) (no date) (unknown) (unknown) Yoseph Cardoso is a 86-year-old male with a history of atrial fibrillation, with (units unknown) (unknown) (unknown) (no date) (unknown) (unknown) Due to patient's cognitive impairment/encephal opathy unable to obtain HPI, ROS, (units unknown) (unknown) (unknown) (no date) (unknown) (unknown) EKG atrial sensed ventricular paced rhythm rate 72, abnormal. . Head CT (units unknown) (unknown) (unknown) (no date) (unknown) (unknown) Environment (units unknown) (unknown) (unknown) (no date) (unknown) (unknown) Eos # (Auto) 0 (units unknown) (unknown) (unknown) (no date) (unknown) (unknown) Eos # (Auto) (units unknown) (unknown) (unknown) (no date) (unknown) (unknown) Eos % (Auto) 0.1 L (units unknown) (unknown) (unknown) (no date) (unknown) (unknown) Eos % (Auto) (units unknown) (unknown) (unknown) (no date) (unknown) (unknown) Essential hypertension (units unknown) (unknown) (unknown) (no date) (unknown) (unknown) Estimated GFR > 60 (units unknown) (unknown) (unknown) (no date) (unknown) (unknown) Estimated GFR (units unknown) (unknown) (unknown) (no date) (unknown) (unknown) Exam Narrative: (units unknown) (unknown) (unknown) (no date) (unknown) (unknown) Exam (units unknown) (unknown) (unknown) (no date) (unknown) (unknown) Family + Social History (units unknown) (unknown) (unknown) (no date) (unknown) (unknown) Family History (units unknown) (unknown) (unknown) (no date) (unknown) (unknown) Father Diabetes mellitus (units unknown) (unknown) (unknown) (no date) (unknown) (unknown) Feels Safe in Current Yes, patient lives at home with his . (units unknown) (unknown) (unknown) (no date) (unknown) (unknown) Full range of motion intact radial and pedal pulses are normal. (units unknown) (unknown) (unknown) (no date) (unknown) (unknown) General: Patient is a pleasantly confused cachectic, frail, elderly male, in no (units unknown) (unknown) (unknown) (no date) (unknown) (unknown) Globulin 2.7 (units unknown) (unknown) (unknown) (no date) (unknown) (unknown) Globulin (units unknown) (unknown) (unknown) (no date) (unknown) (unknown) Glucose 146 H (units unknown) (unknown) (unknown) (no date) (unknown) (unknown) Glucose (units unknown) (unknown) (unknown) (no date) (unknown) (unknown) HEENT: Normocephalic, atraumatic, extraocular muscles intact, oral pharynx is (units unknown) (unknown) (unknown) (no date) (unknown) (unknown) Hct 46.6 (units unknown) (unknown) (unknown) (no date) (unknown) (unknown) Hct (units unknown) (unknown) (unknown) (no date) (unknown) (unknown) Head CT negative. CXR ?Possible mild right and retrocardiac opacities Chest CT (units unknown) (unknown) (unknown) (no date) (unknown) (unknown) Hgb 15.4 (units unknown) (unknown) (unknown) (no date) (unknown) (unknown) Hgb (units unknown) (unknown) (unknown) (no date) (unknown) (unknown) History + Physical Report (units unknown) (unknown) (unknown) (no date) (unknown) (unknown) History of Present Illness (units unknown) (unknown) (unknown) (no date) (unknown) (unknown) History of melanoma (units unknown) (unknown) (unknown) (no date) (unknown) (unknown) History of permanent cardiac pacemaker placement (units unknown) (unknown) (unknown) (no date) (unknown) (unknown) History (units unknown) (unknown) (unknown) (no date) (unknown) (unknown) Home Medications and Allergies (units unknown) (unknown) (unknown) (no date) (unknown) (unknown) Home Medications (units unknown) (unknown) (unknown) (no date) (unknown) (unknown) I spent a total of [] minutes of critical care time on this patient's care (units unknown) (unknown) (unknown) (no date) (unknown) (unknown) INR 1.5 H (units unknown) (unknown) (unknown) (no date) (unknown) (unknown) INR (units unknown) (unknown) (unknown) (no date) (unknown) (unknown) Influenza A (RT-PCR) Flu a negative (units unknown) (unknown) (unknown) (no date) (unknown) (unknown) Influenza A (RT-PCR) (units unknown) (unknown) (unknown) (no date) (unknown) (unknown) Influenza B (RT-PCR) Flu b negative (units unknown) (unknown) (unknown) (no date) (unknown) (unknown) Influenza B (RT-PCR) (units unknown) (unknown) (unknown) (no date) (unknown) (unknown) [address] [id number] (units unknown) (unknown) (unknown) (no date) (unknown) (unknown) Laboratory Results - last 24 hr (units unknown) (unknown) (unknown) (no date) (unknown) (unknown) Labs (units unknown) (unknown) (unknown) (no date) (unknown) (unknown) Labs: (units unknown) (unknown) (unknown) (no date) (unknown) (unknown) Lactate 2.7 H (units unknown) (unknown) (unknown) (no date) (unknown) (unknown) Lactate 4.3 H* (units unknown) (unknown) (unknown) (no date) (unknown) (unknown) Lactate (units unknown) (unknown) (unknown) (no date) (unknown) (unknown) Lipase 45 (units unknown) (unknown) (unknown) (no date) (unknown) (unknown) Lipase (units unknown) (unknown) (unknown) (no date) (unknown) (unknown) Lungs: Auscultation of all lung troy are clear without adventitious sounds, (units unknown) (unknown) (unknown) (no date) (unknown) (unknown) Lymph # (Auto) 400 L (units unknown) (unknown) (unknown) (no date) (unknown) (unknown) Lymph # (Auto) (units unknown) (unknown) (unknown) (no date) (unknown) (unknown) Lymph % (Auto) 4.6 L (units unknown) (unknown) (unknown) (no date) (unknown) (unknown) Lymph % (Auto) (units unknown) (unknown) (unknown) (no date) (unknown) (unknown) MCH 30.4 (units unknown) (unknown) (unknown) (no date) (unknown) (unknown) MCH (units unknown) (unknown) (unknown) (no date) (unknown) (unknown) MCHC 33.0 (units unknown) (unknown) (unknown) (no date) (unknown) (unknown) MCHC (units unknown) (unknown) (unknown) (no date) (unknown) (unknown) MCV 92.4 (units unknown) (unknown) (unknown) (no date) (unknown) (unknown) MCV (units unknown) (unknown) (unknown) (no date) (unknown) (unknown) Magnesium 2.6 H (units unknown) (unknown) (unknown) (no date) (unknown) (unknown) Magnesium (units unknown) (unknown) (unknown) (no date) (unknown) (unknown) Medical History (Updated 06/17/22 @ 00:55 by JOSE Crystal) (units unknown) (unknown) (unknown) (no date) (unknown) (unknown) Medication Instructions Recorded Confirmed Type (units unknown) (unknown) (unknown) (no date) (unknown) (unknown) Meds (units unknown) (unknown) (unknown) (no date) (unknown) (unknown) [place] # (Auto) 900 (units unknown) (unknown) (unknown) (no date) (unknown) (unknown) [place] # (Auto) (units unknown) (unknown) (unknown) (no date) (unknown) (unknown) [place] % (Auto) 9.4 (units unknown) (unknown) (unknown) (no date) (unknown) (unknown) [place] % (Auto) (units unknown) (unknown) (unknown) (no date) (unknown) (unknown) Mother No problems noted. (units unknown) (unknown) (unknown) (no date) (unknown) (unknown) Musculoskeletal: Diffuse but equal throughout all extremity muscle wasting, no (units unknown) (unknown) (unknown) (no date) (unknown) (unknown) NT-Pro-B Natriuret Pep 1430 H (units unknown) (unknown) (unknown) (no date) (unknown) (unknown) NT-Pro-B Natriuret Pep (units unknown) (unknown) (unknown) (no date) (unknown) (unknown) Narrative (units unknown) (unknown) (unknown) (no date) (unknown) (unknown) Narrative: (units unknown) (unknown) (unknown) (no date) (unknown) (unknown) Negative for JVD (units unknown) (unknown) (unknown) (no date) (unknown) (unknown) Neuro: Alert and orientated x2 Person + Place , moves all extremities, (units unknown) (unknown) (unknown) (no date) (unknown) (unknown) Neut # (Auto) 8200 H (units unknown) (unknown) (unknown) (no date) (unknown) (unknown) Neut # (Auto) (units unknown) (unknown) (unknown) (no date) (unknown) (unknown) Neut % (Auto) 85.1 H (units unknown) (unknown) (unknown) (no date) (unknown) (unknown) Neut % (Auto) (units unknown) (unknown) (unknown) (no date) (unknown) (unknown) Objective (units unknown) (unknown) (unknown) (no date) (unknown) (unknown) Oxygen Delivery Method Room Air (units unknown) (unknown) (unknown) (no date) (unknown) (unknown) Oxygen Delivery Method (units unknown) (unknown) (unknown) (no date) (unknown) (unknown) PT 17.6 H (units unknown) (unknown) (unknown) (no date) (unknown) (unknown) PT (units unknown) (unknown) (unknown) (no date) (unknown) (unknown) Pacemaker (units unknown) (unknown) (unknown) (no date) (unknown) (unknown) Patient History (units unknown) (unknown) (unknown) (no date) (unknown) (unknown) Patient: Yoseph Cardoso MR#: [id number] (units unknown) (unknown) (unknown) (no date) (unknown) (unknown) Phosphorus 4.1 H (units unknown) (unknown) (unknown) (no date) (unknown) (unknown) Phosphorus (units unknown) (unknown) (unknown) (no date) (unknown) (unknown) Plt Count 222 (units unknown) (unknown) (unknown) (no date) (unknown) (unknown) Plt Count (units unknown) (unknown) (unknown) (no date) (unknown) (unknown) Potassium 4.8 (units unknown) (unknown) (unknown) (no date) (unknown) (unknown) Potassium (units unknown) (unknown) (unknown) (no date) (unknown) (unknown) Procalcitonin 3.27 H (units unknown) (unknown) (unknown) (no date) (unknown) (unknown) Procalcitonin (units unknown) (unknown) (unknown) (no date) (unknown) (unknown) Provider: Hawa Michael- (units unknown) (unknown) (unknown) (no date) (unknown) (unknown) Psych: Patient has a well-kept appearance, pleasant affect, mental status (units unknown) (unknown) (unknown) (no date) (unknown) (unknown) Pulse Oximetry 93 100 (units unknown) (unknown) (unknown) (no date) (unknown) (unknown) Pulse Oximetry 94 96 (units unknown) (unknown) (unknown) (no date) (unknown) (unknown) Pulse Oximetry 95 (units unknown) (unknown) (unknown) (no date) (unknown) (unknown) Pulse Oximetry 96 91 (units unknown) (unknown) (unknown) (no date) (unknown) (unknown) Pulse Oximetry 96 99 (units unknown) (unknown) (unknown) (no date) (unknown) (unknown) Pulse Oximetry 96 (units unknown) (unknown) (unknown) (no date) (unknown) (unknown) Pulse Oximetry 97 96 97 (units unknown) (unknown) (unknown) (no date) (unknown) (unknown) Pulse Oximetry 97 97 98 (units unknown) (unknown) (unknown) (no date) (unknown) (unknown) Pulse Oximetry 97 97 (units unknown) (unknown) (unknown) (no date) (unknown) (unknown) Pulse Oximetry 97 (units unknown) (unknown) (unknown) (no date) (unknown) (unknown) Pulse Oximetry 98 97 (units unknown) (unknown) (unknown) (no date) (unknown) (unknown) Pulse Oximetry 98 (units unknown) (unknown) (unknown) (no date) (unknown) (unknown) Pulse Oximetry (units unknown) (unknown) (unknown) (no date) (unknown) (unknown) Pulse Rate 111 H (units unknown) (unknown) (unknown) (no date) (unknown) (unknown) Pulse Rate 114 H 118 H (units unknown) (unknown) (unknown) (no date) (unknown) (unknown) Pulse Rate 154 H (units unknown) (unknown) (unknown) (no date) (unknown) (unknown) Pulse Rate 72 66 (units unknown) (unknown) (unknown) (no date) (unknown) (unknown) Pulse Rate 72 71 (units unknown) (unknown) (unknown) (no date) (unknown) (unknown) Pulse Rate 72 74 (units unknown) (unknown) (unknown) (no date) (unknown) (unknown) Pulse Rate 72 (units unknown) (unknown) (unknown) (no date) (unknown) (unknown) Pulse Rate 73 74 (units unknown) (unknown) (unknown) (no date) (unknown) (unknown) Pulse Rate 73 87 98 H (units unknown) (unknown) (unknown) (no date) (unknown) (unknown) Pulse Rate 73 (units unknown) (unknown) (unknown) (no date) (unknown) (unknown) Pulse Rate 74 104 H 106 H (units unknown) (unknown) (unknown) (no date) (unknown) (unknown) Pulse Rate 75 116 H (units unknown) (unknown) (unknown) (no date) (unknown) (unknown) Pulse Rate 75 70 (units unknown) (unknown) (unknown) (no date) (unknown) (unknown) Pulse Rate 75 74 74 (units unknown) (unknown) (unknown) (no date) (unknown) (unknown) Pulse Rate 75 (units unknown) (unknown) (unknown) (no date) (unknown) (unknown) Pulse Rate 76 (units unknown) (unknown) (unknown) (no date) (unknown) (unknown) Pulse Rate 78 75 (units unknown) (unknown) (unknown) (no date) (unknown) (unknown) Pulse Rate 84 77 (units unknown) (unknown) (unknown) (no date) (unknown) (unknown) Pulse Rate 86 72 (units unknown) (unknown) (unknown) (no date) (unknown) (unknown) Pulse Rate 98 H (units unknown) (unknown) (unknown) (no date) (unknown) (unknown) RBC 5.05 (units unknown) (unknown) (unknown) (no date) (unknown) (unknown) RBC (units unknown) (unknown) (unknown) (no date) (unknown) (unknown) RDW 14.4 (units unknown) (unknown) (unknown) (no date) (unknown) (unknown) RDW (units unknown) (unknown) (unknown) (no date) (unknown) (unknown) RSV (PCR) Negative (units unknown) (unknown) (unknown) (no date) (unknown) (unknown) RSV (PCR) (units unknown) (unknown) (unknown) (no date) (unknown) (unknown) Respiratory Rate 12 25 H (units unknown) (unknown) (unknown) (no date) (unknown) (unknown) Respiratory Rate 13 26 H (units unknown) (unknown) (unknown) (no date) (unknown) (unknown) Respiratory Rate 16 20 (units unknown) (unknown) (unknown) (no date) (unknown) (unknown) Respiratory Rate 17 26 H (units unknown) (unknown) (unknown) (no date) (unknown) (unknown) Respiratory Rate 17 (units unknown) (unknown) (unknown) (no date) (unknown) (unknown) Respiratory Rate 18 32 H (units unknown) (unknown) (unknown) (no date) (unknown) (unknown) Respiratory Rate 18 (units unknown) (unknown) (unknown) (no date) (unknown) (unknown) Respiratory Rate 19 18 (units unknown) (unknown) (unknown) (no date) (unknown) (unknown) Respiratory Rate 19 34 H 39 H (units unknown) (unknown) (unknown) (no date) (unknown) (unknown) Respiratory Rate 19 (units unknown) (unknown) (unknown) (no date) (unknown) (unknown) Respiratory Rate 20 (units unknown) (unknown) (unknown) (no date) (unknown) (unknown) Respiratory Rate 22 20 (units unknown) (unknown) (unknown) (no date) (unknown) (unknown) Respiratory Rate 23 17 16 (units unknown) (unknown) (unknown) (no date) (unknown) (unknown) Respiratory Rate 23 18 (units unknown) (unknown) (unknown) (no date) (unknown) (unknown) Respiratory Rate 24 19 (units unknown) (unknown) (unknown) (no date) (unknown) (unknown) Respiratory Rate 24 23 (units unknown) (unknown) (unknown) (no date) (unknown) (unknown) Respiratory Rate 27 H (units unknown) (unknown) (unknown) (no date) (unknown) (unknown) Respiratory Rate 29 H (units unknown) (unknown) (unknown) (no date) (unknown) (unknown) Respiratory Rate 30 H 24 (units unknown) (unknown) (unknown) (no date) (unknown) (unknown) Respiratory Rate (units unknown) (unknown) (unknown) (no date) (unknown) (unknown) Review of Systems (units unknown) (unknown) (unknown) (no date) (unknown) (unknown) SARS-CoV-2 (PCR) Negative (units unknown) (unknown) (unknown) (no date) (unknown) (unknown) SARS-CoV-2 (PCR) (units unknown) (unknown) (unknown) (no date) (unknown) (unknown) Safety + Behavioral: (units unknown) (unknown) (unknown) (no date) (unknown) (unknown) Signed By: (units unknown) (unknown) (unknown) (no date) (unknown) (unknown) Skin: Warm Very dry, poor turgor, appears significantly dehydrated and wasting (units unknown) (unknown) (unknown) (no date) (unknown) (unknown) Smoking Status never (units unknown) (unknown) (unknown) (no date) (unknown) (unknown) Sodium 135 L (units unknown) (unknown) (unknown) (no date) (unknown) (unknown) Sodium (units unknown) (unknown) (unknown) (no date) (unknown) (unknown) Substance Use Type does not use (units unknown) (unknown) (unknown) (no date) (unknown) (unknown) Surgical History (Updated 06/16/22 @ 21:27 by Hawa Michael [facility]) (units unknown) (unknown) (unknown) (no date) (unknown) (unknown) Temperature 98.1 F (units unknown) (unknown) (unknown) (no date) (unknown) (unknown) Temperature (units unknown) (unknown) (unknown) (no date) (unknown) (unknown) Time Patient Seen: 15:35 (units unknown) (unknown) (unknown) (no date) (unknown) (unknown) Time Spent With Patient (units unknown) (unknown) (unknown) (no date) (unknown) (unknown) Tobacco + Substance use: (units unknown) (unknown) (unknown) (no date) (unknown) (unknown) Total Bilirubin 2.1 H (units unknown) (unknown) (unknown) (no date) (unknown) (unknown) Total Bilirubin (units unknown) (unknown) (unknown) (no date) (unknown) (unknown) Total Creatine Kinase 53 L (units unknown) (unknown) (unknown) (no date) (unknown) (unknown) Total Creatine Kinase (units unknown) (unknown) (unknown) (no date) (unknown) (unknown) Total Protein 5.8 L (units unknown) (unknown) (unknown) (no date) (unknown) (unknown) Total Protein (units unknown) (unknown) (unknown) (no date) (unknown) (unknown) Troponin I < 0.012 (units unknown) (unknown) (unknown) (no date) (unknown) (unknown) Troponin I (units unknown) (unknown) (unknown) (no date) (unknown) (unknown) Upon admit BP 149/78, tachycardic heart rate 154, tachypneic R 29, O2 saturation (units unknown) (unknown) (unknown) (no date) (unknown) (unknown) Ur Bilirubin Confirm Positive H (units unknown) (unknown) (unknown) (no date) (unknown) (unknown) Ur Bilirubin Confirm (units unknown) (unknown) (unknown) (no date) (unknown) (unknown) Ur Culture Indicated? Specimen cultured (units unknown) (unknown) (unknown) (no date) (unknown) (unknown) Ur Culture Indicated? (units unknown) (unknown) (unknown) (no date) (unknown) (unknown) Ur Leukocyte Esterase Trace H (units unknown) (unknown) (unknown) (no date) (unknown) (unknown) Ur Leukocyte Esterase (units unknown) (unknown) (unknown) (no date) (unknown) (unknown) Ur Specific [place] 1.020 (units unknown) (unknown) (unknown) (no date) (unknown) (unknown) Ur Specific [place] (units unknown) (unknown) (unknown) (no date) (unknown) (unknown) Ur Squamous Epith Cells 1-5 /hpf (units unknown) (unknown) (unknown) (no date) (unknown) (unknown) Ur Squamous Epith Cells (units unknown) (unknown) (unknown) (no date) (unknown) (unknown) Urine Appearance Cloudy (units unknown) (unknown) (unknown) (no date) (unknown) (unknown) Urine Appearance (units unknown) (unknown) (unknown) (no date) (unknown) (unknown) Urine Bacteria None seen (units unknown) (unknown) (unknown) (no date) (unknown) (unknown) Urine Bacteria (units unknown) (unknown) (unknown) (no date) (unknown) (unknown) Urine Bilirubin 3+ H (units unknown) (unknown) (unknown) (no date) (unknown) (unknown) Urine Bilirubin (units unknown) (unknown) (unknown) (no date) (unknown) (unknown) Urine Color Brown (units unknown) (unknown) (unknown) (no date) (unknown) (unknown) Urine Color (units unknown) (unknown) (unknown) (no date) (unknown) (unknown) Urine Glucose (UA) Negative (units unknown) (unknown) (unknown) (no date) (unknown) (unknown) Urine Glucose (UA) (units unknown) (unknown) (unknown) (no date) (unknown) (unknown) Urine Ketones 1+ H (units unknown) (unknown) (unknown) (no date) (unknown) (unknown) Urine Ketones (units unknown) (unknown) (unknown) (no date) (unknown) (unknown) Urine Nitrate Positive H (units unknown) (unknown) (unknown) (no date) (unknown) (unknown) Urine Nitrate (units unknown) (unknown) (unknown) (no date) (unknown) (unknown) Urine Occult Blood Trace-intact (units unknown) (unknown) (unknown) (no date) (unknown) (unknown) Urine Occult Blood (units unknown) (unknown) (unknown) (no date) (unknown) (unknown) Urine Protein 1+ H (units unknown) (unknown) (unknown) (no date) (unknown) (unknown) Urine Protein (units unknown) (unknown) (unknown) (no date) (unknown) (unknown) Urine RBC 10-30/hpf H (units unknown) (unknown) (unknown) (no date) (unknown) (unknown) Urine RBC (units unknown) (unknown) (unknown) (no date) (unknown) (unknown) Urine Urobilinogen 1.0 (units unknown) (unknown) (unknown) (no date) (unknown) (unknown) Urine Urobilinogen (units unknown) (unknown) (unknown) (no date) (unknown) (unknown) Urine WBC 1-5/hpf (units unknown) (unknown) (unknown) (no date) (unknown) (unknown) Urine WBC (units unknown) (unknown) (unknown) (no date) (unknown) (unknown) Urine pH 6.5 (units unknown) (unknown) (unknown) (no date) (unknown) (unknown) Urine pH (units unknown) (unknown) (unknown) (no date) (unknown) (unknown) Vital Signs (units unknown) (unknown) (unknown) (no date) (unknown) (unknown) WBC 9.6 (units unknown) (unknown) (unknown) (no date) (unknown) (unknown) WBC (units unknown) (unknown) (unknown) (no date) (unknown) (unknown) [Embedded Image Not Available] (units unknown) (unknown) (unknown) (no date) (unknown) (unknown) [From Prevnar] and feet x (units unknown) (unknown) (unknown) (no date) (unknown) (unknown) a recent 30 lb weight loss, and night sweats with a shuffling gait x6 weeks. He (units unknown) (unknown) (unknown) (no date) (unknown) (unknown) after. (units unknown) (unknown) (unknown) (no date) (unknown) (unknown) albumin 3.1, CK 53, initial troponin negative, BNP 1430. EKG atrial sensed (units unknown) (unknown) (unknown) (no date) (unknown) (unknown) alcohol intake frequency a few times a month (units unknown) (unknown) (unknown) (no date) (unknown) (unknown) amlodipine 5 mg tablet 5 mg PO DAILY 06/16/22 06/16/22 History (units unknown) (unknown) (unknown) (no date) (unknown) (unknown) and intact without rashes, ulcerations or petechiae. (units unknown) (unknown) (unknown) (no date) (unknown) (unknown) and place, but a very poor historian, stated that 'he came in today by himself (units unknown) (unknown) (unknown) (no date) (unknown) (unknown) apixaban 5 mg tablet (Eliquis) 5 mg PO BID blood thinner 06/16/22 06/16/22 (units unknown) (unknown) (unknown) (no date) (unknown) (unknown) appears is no distress at this time, no apparent jaundice, right upper quadrant (units unknown) (unknown) (unknown) (no date) (unknown) (unknown) are present in all 4 quadrants without guarding or rebound, no CVA tenderness. (units unknown) (unknown) (unknown) (no date) (unknown) (unknown) attitude thought context and judgment are inappropriate- confused, poor (units unknown) (unknown) (unknown) (no date) (unknown) (unknown) because he had black urine this morning'. He did not recall seeing Dr. Gillette, (units unknown) (unknown) (unknown) (no date) (unknown) (unknown) bruit, no cardiac pulsations present. (units unknown) (unknown) (unknown) (no date) (unknown) (unknown) calcium 8.1, magnesium 2.6, phosphorus 4.1, bili 2.1, AST 61, ALT 63, alk-phos (units unknown) (unknown) (unknown) (no date) (unknown) (unknown) cardiology's office due to deteriorating health concerns. patient admitted for (units unknown) (unknown) (unknown) (no date) (unknown) (unknown) cardiology's office due to his significant presentation of cachexia, weakness, (units unknown) (unknown) (unknown) (no date) (unknown) (unknown) clear and mucous membranes are dry. Neck is supple and symmetric, trachea is (units unknown) (unknown) (unknown) (no date) (unknown) (unknown) conjugate to of hands (units unknown) (unknown) (unknown) (no date) (unknown) (unknown) demonstrated bibasilar infiltrates versus inflammatory pulmonary opacities mild (units unknown) (unknown) (unknown) (no date) (unknown) (unknown) differential also includes neoplastic processes as well as infectious (units unknown) (unknown) (unknown) (no date) (unknown) (unknown) difficulty, struggles slightly with given directions. Patient has no WBC, but (units unknown) (unknown) (unknown) (no date) (unknown) (unknown) distress at this time. (units unknown) (unknown) (unknown) (no date) (unknown) (unknown) etiologies such as micro abscesses (units unknown) (unknown) (unknown) (no date) (unknown) (unknown) fluticasone propionate 44 44 mcg inhalation DAILY 06/16/22 06/16/22 History (units unknown) (unknown) (unknown) (no date) (unknown) (unknown) for mild sepsis, transaminitis, UTI, encephalopathy. (units unknown) (unknown) (unknown) (no date) (unknown) (unknown) gabapentin 300 mg capsule 300 mg PO BID 06/16/22 06/16/22 History (units unknown) (unknown) (unknown) (no date) (unknown) (unknown) historian. 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 Numerous (units unknown) (unknown) (unknown) (no date) (unknown) (unknown) malaise, balance coordination issues, and concerns for neoplastic syndrome with (units unknown) (unknown) (unknown) (no date) (unknown) (unknown) markers. (units unknown) (unknown) (unknown) (no date) (unknown) (unknown) mcg/actuation HFA aerosol inhaler (units unknown) (unknown) (unknown) (no date) (unknown) (unknown) medication reconciliation accurately. (units unknown) (unknown) (unknown) (no date) (unknown) (unknown) midline, no adenopathy, no thyroid enlargement, nontender, no masses palpated. (units unknown) (unknown) (unknown) (no date) (unknown) (unknown) mild sepsis, transaminitis, UTI, encephalopathy. (units unknown) (unknown) (unknown) (no date) (unknown) (unknown) negative. 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 Patient denies any pain, and (units unknown) (unknown) (unknown) (no date) (unknown) (unknown) obvious deformity, crepitus, effusions, cyanosis, clubbing or edema present. (units unknown) (unknown) (unknown) (no date) (unknown) (unknown) on room air. (units unknown) (unknown) (unknown) (no date) (unknown) (unknown) opacities mild to moderate right greater than left pulmonary effusion. (units unknown) (unknown) (unknown) (no date) (unknown) (unknown) or labored breathing, mildly tachypneic. 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 Gillette (units unknown) (unknown) (unknown) (no date) (unknown) (unknown) pain, or fever. (units unknown) (unknown) (unknown) (no date) (unknown) (unknown) pneumococcal 7-valent AdvReac Intermediate swelling Verified 06/16/22 12:46 (units unknown) (unknown) (unknown) (no date) (unknown) (unknown) present on admission (units unknown) (unknown) (unknown) (no date) (unknown) (unknown) sensation to touch intact, no gross deficits noted of cranial nerves. (units unknown) (unknown) (unknown) (no date) (unknown) (unknown) shuffling gait x6 weeks. (units unknown) (unknown) (unknown) (no date) (unknown) (unknown) small hypoattenuating lesions throughout the spleen are also nonspecific and the (units unknown) (unknown) (unknown) (no date) (unknown) (unknown) tachycardia with heart rates 111-154, and tachypneic respiratory rate in the (units unknown) (unknown) (unknown) (no date) (unknown) (unknown) to moderate right greater than left pulmonary effusion. SOFA:2 patient admitted (units unknown) (unknown) (unknown) (no date) (unknown) (unknown) to moderate right greater than left pulmonary effusion. patient admitted for (units unknown) (unknown) (unknown) (no date) (unknown) (unknown) today; this time is exclusive of procedural time. (units unknown) (unknown) (unknown) (no date) (unknown) (unknown) unsure if this is the patient's baseline. Due to cognitive impairment unable to (units unknown) (unknown) (unknown) (no date) (unknown) (unknown) ventricular paced rhythm rate 72, abnormal. COVID, influenza a/B/RSV negative. (units unknown) (unknown) (unknown) (no date) (unknown) (unknown) was brought into the ED by his . In ED patient demonstrated escalating (units unknown) (unknown) (unknown) (no date) (unknown) (unknown) wheezes, rhonchi, or rales. (units unknown) (unknown) Result panel 221 (unknown) (no date) (unknown) (unknown) (no value) (units unknown) (unknown) (unknown) (no date) (unknown) (unknown) (Flovent HFA) (units unknown) (unknown) (unknown) (no date) (unknown) (unknown) (past 8 hours): (units unknown) (unknown) (unknown) (no date) (unknown) (unknown) - CXR ?Possible mild right and retrocardiac opacities (units unknown) (unknown) (unknown) (no date) (unknown) (unknown) -ABD/Pelvis CT:?Multiple ill-defined hypoattenuating mass lesions throughout the (units unknown) (unknown) (unknown) (no date) (unknown) (unknown) -BLD/Urine culture pending (units unknown) (unknown) (unknown) (no date) (unknown) (unknown) -Chest CT demonstrated bibasilar infiltrates versus inflammatory pulmonary (units unknown) (unknown) (unknown) (no date) (unknown) (unknown) -[id number] cc/HR (units unknown) (unknown) (unknown) (no date) (unknown) (unknown) -ED:heart rates 111-154, and tachypneic respiratory rate in the 20s. (1L bolus) (units unknown) (unknown) (unknown) (no date) (unknown) (unknown) -GGT 516 -Ordered RT upper Quad U/S tomorrow -may require (units unknown) (unknown) (unknown) (no date) (unknown) (unknown) -[id number] checks while NPO Only (units unknown) (unknown) (unknown) (no date) (unknown) (unknown) -Negative Fever, jaundice, right upper quadrant pain (units unknown) (unknown) (unknown) (no date) (unknown) (unknown) -Ordered: CRP, ESR, AFP, EPO, hepatitis panel-trend LFT's, and inflammatory (units unknown) (unknown) (unknown) (no date) (unknown) (unknown) -R Factor: 0.4 cholestatic injury- Ordered ABD/P CT (units unknown) (unknown) (unknown) (no date) (unknown) (unknown) -SOFA:2 (units unknown) (unknown) (unknown) (no date) (unknown) (unknown) -Sodium 135, BUN 34, glucose 146, calcium 8.1, magnesium 2.6, phosphorus 4.1, (units unknown) (unknown) (unknown) (no date) (unknown) (unknown) -Suspect dehydration-patient appears severely volume depleted (units unknown) (unknown) (unknown) (no date) (unknown) (unknown) -WBC neg, neut# 8200, initial lactate 4.3, repeat 2.7, procalcitonin 3.27, (units unknown) (unknown) (unknown) (no date) (unknown) (unknown) -admit BP 149/78, tachycardic heart rate 154, tachypneic R 29, O2 saturation 98% (units unknown) (unknown) (unknown) (no date) (unknown) (unknown) -bladder scans as needed, postvoid residual >500cc -straight cath, 2nd postvoid (units unknown) (unknown) (unknown) (no date) (unknown) (unknown) -cachexia, weakness, malaise balance coordination issues, and concerns for (units unknown) (unknown) (unknown) (no date) (unknown) (unknown) -initiated Zosyn (units unknown) (unknown) (unknown) (no date) (unknown) (unknown) -monitor for septic shock (units unknown) (unknown) (unknown) (no date) (unknown) (unknown) -ordered 1L bolus followed by [id number] cc/HR (units unknown) (unknown) (unknown) (no date) (unknown) (unknown) -pain and antiemetic management (units unknown) (unknown) (unknown) (no date) (unknown) (unknown) -phosphorus 4.1, bili 2.1, AST 61, ALT 63, alk-phos 428, total protein 5.8,PT (units unknown) (unknown) (unknown) (no date) (unknown) (unknown) -placed general surgery consult Dr. Turner (units unknown) (unknown) (unknown) (no date) (unknown) (unknown) -positive nitrate urinalysis culture pending, transaminitis (units unknown) (unknown) (unknown) (no date) (unknown) (unknown) -urinalysis brown, positive for protein, ketones, nitrites, bili 3+, leuks, RBC (units unknown) (unknown) (unknown) (no date) (unknown) (unknown) [id number] (units unknown) (unknown) (unknown) (no date) (unknown) (unknown) 06/16/22 06/16/22 06/16/22 (units unknown) (unknown) (unknown) (no date) (unknown) (unknown) 06/16/22 06/16/22 (units unknown) (unknown) (unknown) (no date) (unknown) (unknown) 06/16/22 12:35 (units unknown) (unknown) (unknown) (no date) (unknown) (unknown) 06/16/22 (units unknown) (unknown) (unknown) (no date) (unknown) (unknown) 1. Sepsis without septic shock, likely hepatobiliary origin, and UTI, acute, (units unknown) (unknown) (unknown) (no date) (unknown) (unknown) 10-30- Culture pending (units unknown) (unknown) (unknown) (no date) (unknown) (unknown) 12:35 12:35 12:35 (units unknown) (unknown) (unknown) (no date) (unknown) (unknown) 13:15 06/16/22 (units unknown) (unknown) (unknown) (no date) (unknown) (unknown) 13:30 (units unknown) (unknown) (unknown) (no date) (unknown) (unknown) 13:45 06/16/22 (units unknown) (unknown) (unknown) (no date) (unknown) (unknown) 13:46 06/16/22 (units unknown) (unknown) (unknown) (no date) (unknown) (unknown) 13:46 (units unknown) (unknown) (unknown) (no date) (unknown) (unknown) 14:00 06/16/22 (units unknown) (unknown) (unknown) (no date) (unknown) (unknown) 14:24 (units unknown) (unknown) (unknown) (no date) (unknown) (unknown) 14:30 06/16/22 (units unknown) (unknown) (unknown) (no date) (unknown) (unknown) 14:45 06/16/22 (units unknown) (unknown) (unknown) (no date) (unknown) (unknown) 15:00 (units unknown) (unknown) (unknown) (no date) (unknown) (unknown) 15:15 06/16/22 (units unknown) (unknown) (unknown) (no date) (unknown) (unknown) 15:30 06/16/22 (units unknown) (unknown) (unknown) (no date) (unknown) (unknown) 15:30 17:55 (units unknown) (unknown) (unknown) (no date) (unknown) (unknown) 15:34 06/16/22 (units unknown) (unknown) (unknown) (no date) (unknown) (unknown) 15:34 (units unknown) (unknown) (unknown) (no date) (unknown) (unknown) 15:45 06/16/22 (units unknown) (unknown) (unknown) (no date) (unknown) (unknown) 15:45 (units unknown) (unknown) (unknown) (no date) (unknown) (unknown) 16:00 06/16/22 (units unknown) (unknown) (unknown) (no date) (unknown) (unknown) 16:15 06/16/22 (units unknown) (unknown) (unknown) (no date) (unknown) (unknown) 16:15 (units unknown) (unknown) (unknown) (no date) (unknown) (unknown) 16:30 06/16/22 (units unknown) (unknown) (unknown) (no date) (unknown) (unknown) 16:31 06/16/22 (units unknown) (unknown) (unknown) (no date) (unknown) (unknown) 16:31 (units unknown) (unknown) (unknown) (no date) (unknown) (unknown) 16:45 06/16/22 (units unknown) (unknown) (unknown) (no date) (unknown) (unknown) 17.6, INR 1.5, PTT 38 (units unknown) (unknown) (unknown) (no date) (unknown) (unknown) 17.6, INR 1.5, PTT 38. Sodium 135, BUN 34, glucose 146, calcium 8.1, magnesium (units unknown) (unknown) (unknown) (no date) (unknown) (unknown) 17:00 06/16/22 (units unknown) (unknown) (unknown) (no date) (unknown) (unknown) 17:00 (units unknown) (unknown) (unknown) (no date) (unknown) (unknown) 17:15 06/16/22 (units unknown) (unknown) (unknown) (no date) (unknown) (unknown) 17:15 (units unknown) (unknown) (unknown) (no date) (unknown) (unknown) 17:30 06/16/22 (units unknown) (unknown) (unknown) (no date) (unknown) (unknown) 17:45 (units unknown) (unknown) (unknown) (no date) (unknown) (unknown) 17:46 06/16/22 (units unknown) (unknown) (unknown) (no date) (unknown) (unknown) 17:59 (units unknown) (unknown) (unknown) (no date) (unknown) (unknown) 18:00 06/16/22 (units unknown) (unknown) (unknown) (no date) (unknown) (unknown) 18:01 06/16/22 (units unknown) (unknown) (unknown) (no date) (unknown) (unknown) 18:15 06/16/22 (units unknown) (unknown) (unknown) (no date) (unknown) (unknown) 18:15 (units unknown) (unknown) (unknown) (no date) (unknown) (unknown) 18:30 06/16/22 (units unknown) (unknown) (unknown) (no date) (unknown) (unknown) 18:30 (units unknown) (unknown) (unknown) (no date) (unknown) (unknown) 18:45 06/16/22 (units unknown) (unknown) (unknown) (no date) (unknown) (unknown) 19:00 06/16/22 (units unknown) (unknown) (unknown) (no date) (unknown) (unknown) 19:00 (units unknown) (unknown) (unknown) (no date) (unknown) (unknown) 19:15 06/16/22 (units unknown) (unknown) (unknown) (no date) (unknown) (unknown) 19:15 (units unknown) (unknown) (unknown) (no date) (unknown) (unknown) 19:30 06/16/22 (units unknown) (unknown) (unknown) (no date) (unknown) (unknown) 19:45 06/16/22 (units unknown) (unknown) (unknown) (no date) (unknown) (unknown) 19:45 (units unknown) (unknown) (unknown) (no date) (unknown) (unknown) 2. Transaminitis, with elevated alkaline phosphate, acute, present on admission (units unknown) (unknown) (unknown) (no date) (unknown) (unknown) 2.6, phosphorus 4.1, bili 2.1, AST 61, ALT 63, alk-phos 428, total protein 5.8, (units unknown) (unknown) (unknown) (no date) (unknown) (unknown) 20:00 06/16/22 (units unknown) (unknown) (unknown) (no date) (unknown) (unknown) 20:00 (units unknown) (unknown) (unknown) (no date) (unknown) (unknown) 20:15 06/16/22 (units unknown) (unknown) (unknown) (no date) (unknown) (unknown) 20:30 06/16/22 (units unknown) (unknown) (unknown) (no date) (unknown) (unknown) 20:30 (units unknown) (unknown) (unknown) (no date) (unknown) (unknown) 20:45 06/16/22 (units unknown) (unknown) (unknown) (no date) (unknown) (unknown) 20:46 06/16/22 (units unknown) (unknown) (unknown) (no date) (unknown) (unknown) 20:46 (units unknown) (unknown) (unknown) (no date) (unknown) (unknown) 20:55 (units unknown) (unknown) (unknown) (no date) (unknown) (unknown) 20s. During admit interview patient is pleasantly confused orientated to self (units unknown) (unknown) (unknown) (no date) (unknown) (unknown) 3. UTI, acute, present on admission (units unknown) (unknown) (unknown) (no date) (unknown) (unknown) 4 mos (units unknown) (unknown) (unknown) (no date) (unknown) (unknown) 4.3, repeat 2.7, procalcitonin 3.27, . bili 2.1, AST 61, ALT 63, alk-phos (units unknown) (unknown) (unknown) (no date) (unknown) (unknown) 428, total protein 5.8, albumin 3.1, CK 53, initial troponin negative, BNP 1430. (units unknown) (unknown) (unknown) (no date) (unknown) (unknown) 98% on room air. Patient did get up and ambulate to the restroom w/MA without (units unknown) (unknown) (unknown) (no date) (unknown) (unknown) 98% on room air. Patient has no WBC, but left shiftneut 8200, initial lactate (units unknown) (unknown) (unknown) (no date) (unknown) (unknown) A1C 5.8% (units unknown) (unknown) (unknown) (no date) (unknown) (unknown) ALT 63 H (units unknown) (unknown) (unknown) (no date) (unknown) (unknown) ALT (units unknown) (unknown) (unknown) (no date) (unknown) (unknown) APTT 38 H (units unknown) (unknown) (unknown) (no date) (unknown) (unknown) APTT (units unknown) (unknown) (unknown) (no date) (unknown) (unknown) AST 61 H (units unknown) (unknown) (unknown) (no date) (unknown) (unknown) AST (units unknown) (unknown) (unknown) (no date) (unknown) (unknown) Abdomen: Soft nontender, negative for organomegaly, or masses. Bowel sounds (units unknown) (unknown) (unknown) (no date) (unknown) (unknown) Age/Sex: 86 / M (units unknown) (unknown) (unknown) (no date) (unknown) (unknown) Albumin 3.1 L (units unknown) (unknown) (unknown) (no date) (unknown) (unknown) Albumin (units unknown) (unknown) (unknown) (no date) (unknown) (unknown) Albumin/Globulin Ratio 1.1 (units unknown) (unknown) (unknown) (no date) (unknown) (unknown) Albumin/Globulin Ratio (units unknown) (unknown) (unknown) (no date) (unknown) (unknown) Alkaline Phosphatase 428 H (units unknown) (unknown) (unknown) (no date) (unknown) (unknown) Alkaline Phosphatase (units unknown) (unknown) (unknown) (no date) (unknown) (unknown) Allergies (units unknown) (unknown) (unknown) (no date) (unknown) (unknown) Allergy/AdvReac Type Severity Reaction Status Date / Time (units unknown) (unknown) (unknown) (no date) (unknown) (unknown) Assessment + Plan narrative: (units unknown) (unknown) (unknown) (no date) (unknown) (unknown) Assessment + Plan (units unknown) (unknown) (unknown) (no date) (unknown) (unknown) Asthma (units unknown) (unknown) (unknown) (no date) (unknown) (unknown) Atrial fibrillation (units unknown) (unknown) (unknown) (no date) (unknown) (unknown) BUN 34 H (units unknown) (unknown) (unknown) (no date) (unknown) (unknown) BUN (units unknown) (unknown) (unknown) (no date) (unknown) (unknown) BUN/Creatinine Ratio 34.3 H (units unknown) (unknown) (unknown) (no date) (unknown) (unknown) BUN/Creatinine Ratio (units unknown) (unknown) (unknown) (no date) (unknown) (unknown) Baso # (Auto) 100 (units unknown) (unknown) (unknown) (no date) (unknown) (unknown) Baso # (Auto) (units unknown) (unknown) (unknown) (no date) (unknown) (unknown) Baso % (Auto) 0.8 (units unknown) (unknown) (unknown) (no date) (unknown) (unknown) Baso % (Auto) (units unknown) (unknown) (unknown) (no date) (unknown) (unknown) Blood Pressure 141/57 H (units unknown) (unknown) (unknown) (no date) (unknown) (unknown) Blood Pressure 141/73 H (units unknown) (unknown) (unknown) (no date) (unknown) (unknown) Blood Pressure 142/65 H 156/70 H (units unknown) (unknown) (unknown) (no date) (unknown) (unknown) Blood Pressure 142/67 H (units unknown) (unknown) (unknown) (no date) (unknown) (unknown) Blood Pressure 143/67 H (units unknown) (unknown) (unknown) (no date) (unknown) (unknown) Blood Pressure 145/69 H (units unknown) (unknown) (unknown) (no date) (unknown) (unknown) Blood Pressure 146/69 H (units unknown) (unknown) (unknown) (no date) (unknown) (unknown) Blood Pressure 147/71 H 150/72 H (units unknown) (unknown) (unknown) (no date) (unknown) (unknown) Blood Pressure 149/68 H 130/59 L (units unknown) (unknown) (unknown) (no date) (unknown) (unknown) Blood Pressure 149/78 H 155/70 H (units unknown) (unknown) (unknown) (no date) (unknown) (unknown) Blood Pressure 150/73 H (units unknown) (unknown) (unknown) (no date) (unknown) (unknown) Blood Pressure 151/72 H (units unknown) (unknown) (unknown) (no date) (unknown) (unknown) Blood Pressure 154/73 H (units unknown) (unknown) (unknown) (no date) (unknown) (unknown) Blood Pressure 156/72 H 151/72 H (units unknown) (unknown) (unknown) (no date) (unknown) (unknown) Blood Pressure 162/114 H (units unknown) (unknown) (unknown) (no date) (unknown) (unknown) Blood Pressure 164/94 H 164/96 H (units unknown) (unknown) (unknown) (no date) (unknown) (unknown) Blood Pressure 179/74 H 179/94 H (units unknown) (unknown) (unknown) (no date) (unknown) (unknown) Blood Pressure 186/112 H 169/75 H (units unknown) (unknown) (unknown) (no date) (unknown) (unknown) Blood Pressure (units unknown) (unknown) (unknown) (no date) (unknown) (unknown) CK-MB (CK-2) Rel Index TNP (units unknown) (unknown) (unknown) (no date) (unknown) (unknown) CK-MB (CK-2) Rel Index (units unknown) (unknown) (unknown) (no date) (unknown) (unknown) CK-MB (CK-2) TNP (units unknown) (unknown) (unknown) (no date) (unknown) (unknown) CK-MB (CK-2) (units unknown) (unknown) (unknown) (no date) (unknown) (unknown) COVID, influenza a/B/RSV negative (units unknown) (unknown) (unknown) (no date) (unknown) (unknown) Calcium 8.1 L (units unknown) (unknown) (unknown) (no date) (unknown) (unknown) Calcium (units unknown) (unknown) (unknown) (no date) (unknown) (unknown) Carbon Dioxide 28 (units unknown) (unknown) (unknown) (no date) (unknown) (unknown) Carbon Dioxide (units unknown) (unknown) (unknown) (no date) (unknown) (unknown) Cardio: regular rate and rhythm without murmur, rubs, or gallops, no carotid (units unknown) (unknown) (unknown) (no date) (unknown) (unknown) Chest: Equal expansion, positive kyphoscoliosis, no nasal flaring, retractions, (units unknown) (unknown) (unknown) (no date) (unknown) (unknown) Chief complaint: Pain near pacemaker (units unknown) (unknown) (unknown) (no date) (unknown) (unknown) Chloride 99 (units unknown) (unknown) (unknown) (no date) (unknown) (unknown) Chloride (units unknown) (unknown) (unknown) (no date) (unknown) (unknown) Chronic anticoagulation (units unknown) (unknown) (unknown) (no date) (unknown) (unknown) Creatinine 0.99 (units unknown) (unknown) (unknown) (no date) (unknown) (unknown) Creatinine (units unknown) (unknown) (unknown) (no date) (unknown) (unknown) Critical Care time: (units unknown) (unknown) (unknown) (no date) (unknown) (unknown) : 1935 Acct:[id number] (units unknown) (unknown) (unknown) (no date) (unknown) (unknown) Date Patient Seen: 06/16/22 (units unknown) (unknown) (unknown) (no date) (unknown) (unknown) Date of Service: 06/16/22 (units unknown) (unknown) (unknown) (no date) (unknown) (unknown) Yoseph Cardoso is a 86-year-old male with a history of atrial fibrillation, with (units unknown) (unknown) (unknown) (no date) (unknown) (unknown) Due to patient's cognitive impairment/encephal opathy unable to obtain HPI, ROS, (units unknown) (unknown) (unknown) (no date) (unknown) (unknown) EKG atrial sensed ventricular paced rhythm rate 72, abnormal. . Head CT (units unknown) (unknown) (unknown) (no date) (unknown) (unknown) Environment (units unknown) (unknown) (unknown) (no date) (unknown) (unknown) Eos # (Auto) 0 (units unknown) (unknown) (unknown) (no date) (unknown) (unknown) Eos # (Auto) (units unknown) (unknown) (unknown) (no date) (unknown) (unknown) Eos % (Auto) 0.1 L (units unknown) (unknown) (unknown) (no date) (unknown) (unknown) Eos % (Auto) (units unknown) (unknown) (unknown) (no date) (unknown) (unknown) Essential hypertension (units unknown) (unknown) (unknown) (no date) (unknown) (unknown) Estimated GFR > 60 (units unknown) (unknown) (unknown) (no date) (unknown) (unknown) Estimated GFR (units unknown) (unknown) (unknown) (no date) (unknown) (unknown) Exam Narrative: (units unknown) (unknown) (unknown) (no date) (unknown) (unknown) Exam (units unknown) (unknown) (unknown) (no date) (unknown) (unknown) Family + Social History (units unknown) (unknown) (unknown) (no date) (unknown) (unknown) Family History (units unknown) (unknown) (unknown) (no date) (unknown) (unknown) Father Diabetes mellitus (units unknown) (unknown) (unknown) (no date) (unknown) (unknown) Feels Safe in Current Yes, patient lives at home with his . (units unknown) (unknown) (unknown) (no date) (unknown) (unknown) Full range of motion intact radial and pedal pulses are normal. (units unknown) (unknown) (unknown) (no date) (unknown) (unknown) General: Patient is a pleasantly confused cachectic, frail, elderly male, in no (units unknown) (unknown) (unknown) (no date) (unknown) (unknown) Globulin 2.7 (units unknown) (unknown) (unknown) (no date) (unknown) (unknown) Globulin (units unknown) (unknown) (unknown) (no date) (unknown) (unknown) Glucose 146 H (units unknown) (unknown) (unknown) (no date) (unknown) (unknown) Glucose (units unknown) (unknown) (unknown) (no date) (unknown) (unknown) HEENT: Normocephalic, atraumatic, extraocular muscles intact, oral pharynx is (units unknown) (unknown) (unknown) (no date) (unknown) (unknown) Hct 46.6 (units unknown) (unknown) (unknown) (no date) (unknown) (unknown) Hct (units unknown) (unknown) (unknown) (no date) (unknown) (unknown) Head CT negative. CXR ?Possible mild right and retrocardiac opacities Chest CT (units unknown) (unknown) (unknown) (no date) (unknown) (unknown) Hgb 15.4 (units unknown) (unknown) (unknown) (no date) (unknown) (unknown) Hgb (units unknown) (unknown) (unknown) (no date) (unknown) (unknown) History + Physical Report (units unknown) (unknown) (unknown) (no date) (unknown) (unknown) History of Present Illness (units unknown) (unknown) (unknown) (no date) (unknown) (unknown) History of melanoma (units unknown) (unknown) (unknown) (no date) (unknown) (unknown) History of permanent cardiac pacemaker placement (units unknown) (unknown) (unknown) (no date) (unknown) (unknown) History (units unknown) (unknown) (unknown) (no date) (unknown) (unknown) Home Medications and Allergies (units unknown) (unknown) (unknown) (no date) (unknown) (unknown) Home Medications (units unknown) (unknown) (unknown) (no date) (unknown) (unknown) I spent a total of [] minutes of critical care time on this patient's care (units unknown) (unknown) (unknown) (no date) (unknown) (unknown) INR 1.5 H (units unknown) (unknown) (unknown) (no date) (unknown) (unknown) INR (units unknown) (unknown) (unknown) (no date) (unknown) (unknown) Influenza A (RT-PCR) Flu a negative (units unknown) (unknown) (unknown) (no date) (unknown) (unknown) Influenza A (RT-PCR) (units unknown) (unknown) (unknown) (no date) (unknown) (unknown) Influenza B (RT-PCR) Flu b negative (units unknown) (unknown) (unknown) (no date) (unknown) (unknown) Influenza B (RT-PCR) (units unknown) (unknown) (unknown) (no date) (unknown) (unknown) [address] [address] (units unknown) (unknown) (unknown) (no date) (unknown) (unknown) Laboratory Results - last 24 hr (units unknown) (unknown) (unknown) (no date) (unknown) (unknown) Labs (units unknown) (unknown) (unknown) (no date) (unknown) (unknown) Labs: (units unknown) (unknown) (unknown) (no date) (unknown) (unknown) Lactate 2.7 H (units unknown) (unknown) (unknown) (no date) (unknown) (unknown) Lactate 4.3 H* (units unknown) (unknown) (unknown) (no date) (unknown) (unknown) Lactate (units unknown) (unknown) (unknown) (no date) (unknown) (unknown) Lipase 45 (units unknown) (unknown) (unknown) (no date) (unknown) (unknown) Lipase (units unknown) (unknown) (unknown) (no date) (unknown) (unknown) Lungs: Auscultation of all lung troy are clear without adventitious sounds, (units unknown) (unknown) (unknown) (no date) (unknown) (unknown) Lymph # (Auto) 400 L (units unknown) (unknown) (unknown) (no date) (unknown) (unknown) Lymph # (Auto) (units unknown) (unknown) (unknown) (no date) (unknown) (unknown) Lymph % (Auto) 4.6 L (units unknown) (unknown) (unknown) (no date) (unknown) (unknown) Lymph % (Auto) (units unknown) (unknown) (unknown) (no date) (unknown) (unknown) MCH 30.4 (units unknown) (unknown) (unknown) (no date) (unknown) (unknown) MCH (units unknown) (unknown) (unknown) (no date) (unknown) (unknown) MCHC 33.0 (units unknown) (unknown) (unknown) (no date) (unknown) (unknown) MCHC (units unknown) (unknown) (unknown) (no date) (unknown) (unknown) MCV 92.4 (units unknown) (unknown) (unknown) (no date) (unknown) (unknown) MCV (units unknown) (unknown) (unknown) (no date) (unknown) (unknown) Magnesium 2.6 H (units unknown) (unknown) (unknown) (no date) (unknown) (unknown) Magnesium (units unknown) (unknown) (unknown) (no date) (unknown) (unknown) Medical History (Updated 06/17/22 @ 00:55 [facility] (units unknown) (unknown) (unknown) (no date) (unknown) (unknown) Medication Instructions Recorded Confirmed Type (units unknown) (unknown) (unknown) (no date) (unknown) (unknown) Meds (units unknown) (unknown) (unknown) (no date) (unknown) (unknown) [place] # (Auto) 900 (units unknown) (unknown) (unknown) (no date) (unknown) (unknown) [place] # (Auto) (units unknown) (unknown) (unknown) (no date) (unknown) (unknown) [place] % (Auto) 9.4 (units unknown) (unknown) (unknown) (no date) (unknown) (unknown) [place] % (Auto) (units unknown) (unknown) (unknown) (no date) (unknown) (unknown) Mother No problems noted. (units unknown) (unknown) (unknown) (no date) (unknown) (unknown) Musculoskeletal: Diffuse but equal throughout all extremity muscle wasting, no (units unknown) (unknown) (unknown) (no date) (unknown) (unknown) NT-Pro-B Natriuret Pep 1430 H (units unknown) (unknown) (unknown) (no date) (unknown) (unknown) NT-Pro-B Natriuret Pep (units unknown) (unknown) (unknown) (no date) (unknown) (unknown) Narrative (units unknown) (unknown) (unknown) (no date) (unknown) (unknown) Narrative: (units unknown) (unknown) (unknown) (no date) (unknown) (unknown) Negative for JVD (units unknown) (unknown) (unknown) (no date) (unknown) (unknown) Neuro: Alert and orientated x2 Person + Place , moves all extremities, (units unknown) (unknown) (unknown) (no date) (unknown) (unknown) Neut # (Auto) 8200 H (units unknown) (unknown) (unknown) (no date) (unknown) (unknown) Neut # (Auto) (units unknown) (unknown) (unknown) (no date) (unknown) (unknown) Neut % (Auto) 85.1 H (units unknown) (unknown) (unknown) (no date) (unknown) (unknown) Neut % (Auto) (units unknown) (unknown) (unknown) (no date) (unknown) (unknown) Objective (units unknown) (unknown) (unknown) (no date) (unknown) (unknown) Oxygen Delivery Method Room Air (units unknown) (unknown) (unknown) (no date) (unknown) (unknown) Oxygen Delivery Method (units unknown) (unknown) (unknown) (no date) (unknown) (unknown) PT 17.6 H (units unknown) (unknown) (unknown) (no date) (unknown) (unknown) PT (units unknown) (unknown) (unknown) (no date) (unknown) (unknown) Pacemaker (units unknown) (unknown) (unknown) (no date) (unknown) (unknown) Patient History (units unknown) (unknown) (unknown) (no date) (unknown) (unknown) Patient: Yoseph Cardoso MR#: [id number] (units unknown) (unknown) (unknown) (no date) (unknown) (unknown) Phosphorus 4.1 H (units unknown) (unknown) (unknown) (no date) (unknown) (unknown) Phosphorus (units unknown) (unknown) (unknown) (no date) (unknown) (unknown) Plt Count 222 (units unknown) (unknown) (unknown) (no date) (unknown) (unknown) Plt Count (units unknown) (unknown) (unknown) (no date) (unknown) (unknown) Potassium 4.8 (units unknown) (unknown) (unknown) (no date) (unknown) (unknown) Potassium (units unknown) (unknown) (unknown) (no date) (unknown) (unknown) Procalcitonin 3.27 H (units unknown) (unknown) (unknown) (no date) (unknown) (unknown) Procalcitonin (units unknown) (unknown) (unknown) (no date) (unknown) (unknown) Provider: Hawa Michael (units unknown) (unknown) (unknown) (no date) (unknown) (unknown) Psych: Patient has a well-kept appearance, pleasant affect, mental status (units unknown) (unknown) (unknown) (no date) (unknown) (unknown) Pulse Oximetry 93 100 (units unknown) (unknown) (unknown) (no date) (unknown) (unknown) Pulse Oximetry 94 96 (units unknown) (unknown) (unknown) (no date) (unknown) (unknown) Pulse Oximetry 95 (units unknown) (unknown) (unknown) (no date) (unknown) (unknown) Pulse Oximetry 96 91 (units unknown) (unknown) (unknown) (no date) (unknown) (unknown) Pulse Oximetry 96 99 (units unknown) (unknown) (unknown) (no date) (unknown) (unknown) Pulse Oximetry 96 (units unknown) (unknown) (unknown) (no date) (unknown) (unknown) Pulse Oximetry 97 96 97 (units unknown) (unknown) (unknown) (no date) (unknown) (unknown) Pulse Oximetry 97 97 98 (units unknown) (unknown) (unknown) (no date) (unknown) (unknown) Pulse Oximetry 97 97 (units unknown) (unknown) (unknown) (no date) (unknown) (unknown) Pulse Oximetry 97 (units unknown) (unknown) (unknown) (no date) (unknown) (unknown) Pulse Oximetry 98 97 (units unknown) (unknown) (unknown) (no date) (unknown) (unknown) Pulse Oximetry 98 (units unknown) (unknown) (unknown) (no date) (unknown) (unknown) Pulse Oximetry (units unknown) (unknown) (unknown) (no date) (unknown) (unknown) Pulse Rate 111 H (units unknown) (unknown) (unknown) (no date) (unknown) (unknown) Pulse Rate 114 H 118 H (units unknown) (unknown) (unknown) (no date) (unknown) (unknown) Pulse Rate 154 H (units unknown) (unknown) (unknown) (no date) (unknown) (unknown) Pulse Rate 72 66 (units unknown) (unknown) (unknown) (no date) (unknown) (unknown) Pulse Rate 72 71 (units unknown) (unknown) (unknown) (no date) (unknown) (unknown) Pulse Rate 72 74 (units unknown) (unknown) (unknown) (no date) (unknown) (unknown) Pulse Rate 72 (units unknown) (unknown) (unknown) (no date) (unknown) (unknown) Pulse Rate 73 74 (units unknown) (unknown) (unknown) (no date) (unknown) (unknown) Pulse Rate 73 87 98 H (units unknown) (unknown) (unknown) (no date) (unknown) (unknown) Pulse Rate 73 (units unknown) (unknown) (unknown) (no date) (unknown) (unknown) Pulse Rate 74 104 H 106 H (units unknown) (unknown) (unknown) (no date) (unknown) (unknown) Pulse Rate 75 116 H (units unknown) (unknown) (unknown) (no date) (unknown) (unknown) Pulse Rate 75 70 (units unknown) (unknown) (unknown) (no date) (unknown) (unknown) Pulse Rate 75 74 74 (units unknown) (unknown) (unknown) (no date) (unknown) (unknown) Pulse Rate 75 (units unknown) (unknown) (unknown) (no date) (unknown) (unknown) Pulse Rate 76 (units unknown) (unknown) (unknown) (no date) (unknown) (unknown) Pulse Rate 78 75 (units unknown) (unknown) (unknown) (no date) (unknown) (unknown) Pulse Rate 84 77 (units unknown) (unknown) (unknown) (no date) (unknown) (unknown) Pulse Rate 86 72 (units unknown) (unknown) (unknown) (no date) (unknown) (unknown) Pulse Rate 98 H (units unknown) (unknown) (unknown) (no date) (unknown) (unknown) RBC 5.05 (units unknown) (unknown) (unknown) (no date) (unknown) (unknown) RBC (units unknown) (unknown) (unknown) (no date) (unknown) (unknown) RDW 14.4 (units unknown) (unknown) (unknown) (no date) (unknown) (unknown) RDW (units unknown) (unknown) (unknown) (no date) (unknown) (unknown) RSV (PCR) Negative (units unknown) (unknown) (unknown) (no date) (unknown) (unknown) RSV (PCR) (units unknown) (unknown) (unknown) (no date) (unknown) (unknown) Respiratory Rate 12 25 H (units unknown) (unknown) (unknown) (no date) (unknown) (unknown) Respiratory Rate 13 26 H (units unknown) (unknown) (unknown) (no date) (unknown) (unknown) Respiratory Rate 16 20 (units unknown) (unknown) (unknown) (no date) (unknown) (unknown) Respiratory Rate 17 26 H (units unknown) (unknown) (unknown) (no date) (unknown) (unknown) Respiratory Rate 17 (units unknown) (unknown) (unknown) (no date) (unknown) (unknown) Respiratory Rate 18 32 H (units unknown) (unknown) (unknown) (no date) (unknown) (unknown) Respiratory Rate 18 (units unknown) (unknown) (unknown) (no date) (unknown) (unknown) Respiratory Rate 19 18 (units unknown) (unknown) (unknown) (no date) (unknown) (unknown) Respiratory Rate 19 34 H 39 H (units unknown) (unknown) (unknown) (no date) (unknown) (unknown) Respiratory Rate 19 (units unknown) (unknown) (unknown) (no date) (unknown) (unknown) Respiratory Rate 20 (units unknown) (unknown) (unknown) (no date) (unknown) (unknown) Respiratory Rate 22 20 (units unknown) (unknown) (unknown) (no date) (unknown) (unknown) Respiratory Rate 23 17 16 (units unknown) (unknown) (unknown) (no date) (unknown) (unknown) Respiratory Rate 23 18 (units unknown) (unknown) (unknown) (no date) (unknown) (unknown) Respiratory Rate 24 19 (units unknown) (unknown) (unknown) (no date) (unknown) (unknown) Respiratory Rate 24 23 (units unknown) (unknown) (unknown) (no date) (unknown) (unknown) Respiratory Rate 27 H (units unknown) (unknown) (unknown) (no date) (unknown) (unknown) Respiratory Rate 29 H (units unknown) (unknown) (unknown) (no date) (unknown) (unknown) Respiratory Rate 30 H 24 (units unknown) (unknown) (unknown) (no date) (unknown) (unknown) Respiratory Rate (units unknown) (unknown) (unknown) (no date) (unknown) (unknown) Review of Systems (units unknown) (unknown) (unknown) (no date) (unknown) (unknown) SARS-CoV-2 (PCR) Negative (units unknown) (unknown) (unknown) (no date) (unknown) (unknown) SARS-CoV-2 (PCR) (units unknown) (unknown) (unknown) (no date) (unknown) (unknown) Safety + Behavioral: (units unknown) (unknown) (unknown) (no date) (unknown) (unknown) Signed By: (units unknown) (unknown) (unknown) (no date) (unknown) (unknown) Skin: Warm Very dry, poor turgor, appears significantly dehydrated and wasting (units unknown) (unknown) (unknown) (no date) (unknown) (unknown) Smoking Status never (units unknown) (unknown) (unknown) (no date) (unknown) (unknown) Sodium 135 L (units unknown) (unknown) (unknown) (no date) (unknown) (unknown) Sodium (units unknown) (unknown) (unknown) (no date) (unknown) (unknown) Substance Use Type does not use (units unknown) (unknown) (unknown) (no date) (unknown) (unknown) Surgical History (Updated 06/16/22 @ 21:27 by Hawa Michael [facility]) (units unknown) (unknown) (unknown) (no date) (unknown) (unknown) Temperature 98.1 F (units unknown) (unknown) (unknown) (no date) (unknown) (unknown) Temperature (units unknown) (unknown) (unknown) (no date) (unknown) (unknown) Time Patient Seen: 15:35 (units unknown) (unknown) (unknown) (no date) (unknown) (unknown) Time Spent With Patient (units unknown) (unknown) (unknown) (no date) (unknown) (unknown) Tobacco + Substance use: (units unknown) (unknown) (unknown) (no date) (unknown) (unknown) Total Bilirubin 2.1 H (units unknown) (unknown) (unknown) (no date) (unknown) (unknown) Total Bilirubin (units unknown) (unknown) (unknown) (no date) (unknown) (unknown) Total Creatine Kinase 53 L (units unknown) (unknown) (unknown) (no date) (unknown) (unknown) Total Creatine Kinase (units unknown) (unknown) (unknown) (no date) (unknown) (unknown) Total Protein 5.8 L (units unknown) (unknown) (unknown) (no date) (unknown) (unknown) Total Protein (units unknown) (unknown) (unknown) (no date) (unknown) (unknown) Troponin I < 0.012 (units unknown) (unknown) (unknown) (no date) (unknown) (unknown) Troponin I (units unknown) (unknown) (unknown) (no date) (unknown) (unknown) Upon admit BP 149/78, tachycardic heart rate 154, tachypneic R 29, O2 saturation (units unknown) (unknown) (unknown) (no date) (unknown) (unknown) Ur Bilirubin Confirm Positive H (units unknown) (unknown) (unknown) (no date) (unknown) (unknown) Ur Bilirubin Confirm (units unknown) (unknown) (unknown) (no date) (unknown) (unknown) Ur Culture Indicated? Specimen cultured (units unknown) (unknown) (unknown) (no date) (unknown) (unknown) Ur Culture Indicated? (units unknown) (unknown) (unknown) (no date) (unknown) (unknown) Ur Leukocyte Esterase Trace H (units unknown) (unknown) (unknown) (no date) (unknown) (unknown) Ur Leukocyte Esterase (units unknown) (unknown) (unknown) (no date) (unknown) (unknown) Ur Specific [place]ett 1.020 (units unknown) (unknown) (unknown) (no date) (unknown) (unknown) Ur Specific [place] (units unknown) (unknown) (unknown) (no date) (unknown) (unknown) Ur Squamous Epith Cells 1-5 /hpf (units unknown) (unknown) (unknown) (no date) (unknown) (unknown) Ur Squamous Epith Cells (units unknown) (unknown) (unknown) (no date) (unknown) (unknown) Urine Appearance Cloudy (units unknown) (unknown) (unknown) (no date) (unknown) (unknown) Urine Appearance (units unknown) (unknown) (unknown) (no date) (unknown) (unknown) Urine Bacteria None seen (units unknown) (unknown) (unknown) (no date) (unknown) (unknown) Urine Bacteria (units unknown) (unknown) (unknown) (no date) (unknown) (unknown) Urine Bilirubin 3+ H (units unknown) (unknown) (unknown) (no date) (unknown) (unknown) Urine Bilirubin (units unknown) (unknown) (unknown) (no date) (unknown) (unknown) Urine Color Brown (units unknown) (unknown) (unknown) (no date) (unknown) (unknown) Urine Color (units unknown) (unknown) (unknown) (no date) (unknown) (unknown) Urine Glucose (UA) Negative (units unknown) (unknown) (unknown) (no date) (unknown) (unknown) Urine Glucose (UA) (units unknown) (unknown) (unknown) (no date) (unknown) (unknown) Urine Ketones 1+ H (units unknown) (unknown) (unknown) (no date) (unknown) (unknown) Urine Ketones (units unknown) (unknown) (unknown) (no date) (unknown) (unknown) Urine Nitrate Positive H (units unknown) (unknown) (unknown) (no date) (unknown) (unknown) Urine Nitrate (units unknown) (unknown) (unknown) (no date) (unknown) (unknown) Urine Occult Blood Trace-intact (units unknown) (unknown) (unknown) (no date) (unknown) (unknown) Urine Occult Blood (units unknown) (unknown) (unknown) (no date) (unknown) (unknown) Urine Protein 1+ H (units unknown) (unknown) (unknown) (no date) (unknown) (unknown) Urine Protein (units unknown) (unknown) (unknown) (no date) (unknown) (unknown) Urine RBC 10-30/hpf H (units unknown) (unknown) (unknown) (no date) (unknown) (unknown) Urine RBC (units unknown) (unknown) (unknown) (no date) (unknown) (unknown) Urine Urobilinogen 1.0 (units unknown) (unknown) (unknown) (no date) (unknown) (unknown) Urine Urobilinogen (units unknown) (unknown) (unknown) (no date) (unknown) (unknown) Urine WBC 1-5/hpf (units unknown) (unknown) (unknown) (no date) (unknown) (unknown) Urine WBC (units unknown) (unknown) (unknown) (no date) (unknown) (unknown) Urine pH 6.5 (units unknown) (unknown) (unknown) (no date) (unknown) (unknown) Urine pH (units unknown) (unknown) (unknown) (no date) (unknown) (unknown) Vital Signs (units unknown) (unknown) (unknown) (no date) (unknown) (unknown) WBC 9.6 (units unknown) (unknown) (unknown) (no date) (unknown) (unknown) WBC (units unknown) (unknown) (unknown) (no date) (unknown) (unknown) [Embedded Image Not Available] (units unknown) (unknown) (unknown) (no date) (unknown) (unknown) [From Prevnar] and feet x (units unknown) (unknown) (unknown) (no date) (unknown) (unknown) a recent 30 lb weight loss, and night sweats with a shuffling gait x6 weeks. He (units unknown) (unknown) (unknown) (no date) (unknown) (unknown) after. (units unknown) (unknown) (unknown) (no date) (unknown) (unknown) albumin 3.1, CK 53, initial troponin negative, BNP 1430. EKG atrial sensed (units unknown) (unknown) (unknown) (no date) (unknown) (unknown) alcohol intake frequency a few times a month (units unknown) (unknown) (unknown) (no date) (unknown) (unknown) amlodipine 5 mg tablet 5 mg PO DAILY 06/16/22 06/16/22 History (units unknown) (unknown) (unknown) (no date) (unknown) (unknown) and intact without rashes, ulcerations or petechiae. (units unknown) (unknown) (unknown) (no date) (unknown) (unknown) and place, but a very poor historian, stated that 'he came in today by himself (units unknown) (unknown) (unknown) (no date) (unknown) (unknown) apixaban 5 mg tablet (Eliquis) 5 mg PO BID blood thinner 06/16/22 06/16/22 (units unknown) (unknown) (unknown) (no date) (unknown) (unknown) appears is no distress at this time, no apparent jaundice, right upper quadrant (units unknown) (unknown) (unknown) (no date) (unknown) (unknown) are present in all 4 quadrants without guarding or rebound, no CVA tenderness. (units unknown) (unknown) (unknown) (no date) (unknown) (unknown) attitude thought context and judgment are inappropriate- confused, poor (units unknown) (unknown) (unknown) (no date) (unknown) (unknown) because he had black urine this morning'. He did not recall seeing Dr. Paliwal, (units unknown) (unknown) (unknown) (no date) (unknown) (unknown) bruit, no cardiac pulsations present. (units unknown) (unknown) (unknown) (no date) (unknown) (unknown) cardiology's office due to deteriorating health concerns. patient admitted for (units unknown) (unknown) (unknown) (no date) (unknown) (unknown) cardiology's office due to his significant presentation of cachexia, weakness, (units unknown) (unknown) (unknown) (no date) (unknown) (unknown) clear and mucous membranes are dry. Neck is supple and symmetric, trachea is (units unknown) (unknown) (unknown) (no date) (unknown) (unknown) conjugate to of hands (units unknown) (unknown) (unknown) (no date) (unknown) (unknown) demonstrated bibasilar infiltrates versus inflammatory pulmonary opacities mild (units unknown) (unknown) (unknown) (no date) (unknown) (unknown) differential also includes neoplastic processes as well as infectious (units unknown) (unknown) (unknown) (no date) (unknown) (unknown) difficulty, struggles slightly with given directions. Patient has no WBC, but (units unknown) (unknown) (unknown) (no date) (unknown) (unknown) distress at this time. (units unknown) (unknown) (unknown) (no date) (unknown) (unknown) etiologies such as micro abscesses (units unknown) (unknown) (unknown) (no date) (unknown) (unknown) fluticasone propionate 44 44 mcg inhalation DAILY 06/16/22 06/16/22 History (units unknown) (unknown) (unknown) (no date) (unknown) (unknown) for mild sepsis, transaminitis, UTI, encephalopathy. (units unknown) (unknown) (unknown) (no date) (unknown) (unknown) gabapentin 300 mg capsule 300 mg PO BID 06/16/22 06/16/22 History (units unknown) (unknown) (unknown) (no date) (unknown) (unknown) historian. 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 Numerous (units unknown) (unknown) (unknown) (no date) (unknown) (unknown) malaise, balance coordination issues, and concerns for neoplastic syndrome with (units unknown) (unknown) (unknown) (no date) (unknown) (unknown) markers. (units unknown) (unknown) (unknown) (no date) (unknown) (unknown) mcg/actuation HFA aerosol inhaler (units unknown) (unknown) (unknown) (no date) (unknown) (unknown) medication reconciliation accurately. (units unknown) (unknown) (unknown) (no date) (unknown) (unknown) midline, no adenopathy, no thyroid enlargement, nontender, no masses palpated. (units unknown) (unknown) (unknown) (no date) (unknown) (unknown) mild sepsis, transaminitis, UTI, encephalopathy. (units unknown) (unknown) (unknown) (no date) (unknown) (unknown) negative. 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 Patient denies any pain, and (units unknown) (unknown) (unknown) (no date) (unknown) (unknown) obvious deformity, crepitus, effusions, cyanosis, clubbing or edema present. (units unknown) (unknown) (unknown) (no date) (unknown) (unknown) on room air. (units unknown) (unknown) (unknown) (no date) (unknown) (unknown) opacities mild to moderate right greater than left pulmonary effusion. (units unknown) (unknown) (unknown) (no date) (unknown) (unknown) or labored breathing, mildly tachypneic. 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 Gillette (units unknown) (unknown) (unknown) (no date) (unknown) (unknown) pain, or fever. (units unknown) (unknown) (unknown) (no date) (unknown) (unknown) pneumococcal 7-valent AdvReac Intermediate swelling Verified 06/16/22 12:46 (units unknown) (unknown) (unknown) (no date) (unknown) (unknown) present on admission (units unknown) (unknown) (unknown) (no date) (unknown) (unknown) residual>500cc place Brice (units unknown) (unknown) (unknown) (no date) (unknown) (unknown) sensation to touch intact, no gross deficits noted of cranial nerves. (units unknown) (unknown) (unknown) (no date) (unknown) (unknown) shuffling gait x6 weeks. (units unknown) (unknown) (unknown) (no date) (unknown) (unknown) small hypoattenuating lesions throughout the spleen are also nonspecific and the (units unknown) (unknown) (unknown) (no date) (unknown) (unknown) tachycardia with heart rates 111-154, and tachypneic respiratory rate in the (units unknown) (unknown) (unknown) (no date) (unknown) (unknown) to moderate right greater than left pulmonary effusion. SOFA:2 patient admitted (units unknown) (unknown) (unknown) (no date) (unknown) (unknown) to moderate right greater than left pulmonary effusion. patient admitted for (units unknown) (unknown) (unknown) (no date) (unknown) (unknown) today; this time is exclusive of procedural time. (units unknown) (unknown) (unknown) (no date) (unknown) (unknown) unsure if this is the patient's baseline. Due to cognitive impairment unable to (units unknown) (unknown) (unknown) (no date) (unknown) (unknown) ventricular paced rhythm rate 72, abnormal. COVID, influenza a/B/RSV negative. (units unknown) (unknown) (unknown) (no date) (unknown) (unknown) was brought into the ED by his . In ED patient demonstrated escalating (units unknown) (unknown) (unknown) (no date) (unknown) (unknown) wheezes, rhonchi, or rales. (units unknown) (unknown) Result panel 222 (unknown) (no date) (unknown) (unknown) (no value) (units unknown) (unknown) (unknown) (no date) (unknown) (unknown) (Flovent HFA) (units unknown) (unknown) (unknown) (no date) (unknown) (unknown) (past 8 hours): (units unknown) (unknown) (unknown) (no date) (unknown) (unknown) - CXR ?Possible mild right and retrocardiac opacities (units unknown) (unknown) (unknown) (no date) (unknown) (unknown) -ABD/Pelvis CT:?Multiple ill-defined hypoattenuating mass lesions throughout the (units unknown) (unknown) (unknown) (no date) (unknown) (unknown) -BLD/Urine culture pending (units unknown) (unknown) (unknown) (no date) (unknown) (unknown) -Chest CT demonstrated bibasilar infiltrates versus inflammatory pulmonary (units unknown) (unknown) (unknown) (no date) (unknown) (unknown) -[id number] cc/HR (units unknown) (unknown) (unknown) (no date) (unknown) (unknown) -ED:heart rates 111-154, and tachypneic respiratory rate in the 20s. (1L bolus) (units unknown) (unknown) (unknown) (no date) (unknown) (unknown) -EKG atrial sensed ventricular paced rhythm rate 72, abnormal. (units unknown) (unknown) (unknown) (no date) (unknown) (unknown) -GGT 516 -Ordered RT upper Quad U/S tomorrow -will order MRCP if bile ducts are (units unknown) (unknown) (unknown) (no date) (unknown) (unknown) -Monitor electrolytes (units unknown) (unknown) (unknown) (no date) (unknown) (unknown) -Monitor for neurological changes, toxic metabolic encephalopathy (units unknown) (unknown) (unknown) (no date) (unknown) (unknown) -[id number] checks while NPO Only (units unknown) (unknown) (unknown) (no date) (unknown) (unknown) -Negative Fever, jaundice, right upper quadrant pain (units unknown) (unknown) (unknown) (no date) (unknown) (unknown) -Ordered: CRP, ESR, AFP, EPO, hepatitis panel-trend LFT's, and inflammatory (units unknown) (unknown) (unknown) (no date) (unknown) (unknown) -R Factor: 0.4 cholestatic injury- Ordered ABD/P CT (units unknown) (unknown) (unknown) (no date) (unknown) (unknown) -SOFA:2 (units unknown) (unknown) (unknown) (no date) (unknown) (unknown) -Sodium 135, BUN 34, glucose 146, calcium 8.1, magnesium 2.6, phosphorus 4.1, (units unknown) (unknown) (unknown) (no date) (unknown) (unknown) -Suspect dehydration-patient appears severely volume depleted (units unknown) (unknown) (unknown) (no date) (unknown) (unknown) -WBC neg, neut# 8200, initial lactate 4.3, repeat 2.7, procalcitonin 3.27, (units unknown) (unknown) (unknown) (no date) (unknown) (unknown) -admit BP 149/78, tachycardic heart rate 154, tachypneic R 29, O2 saturation 98% (units unknown) (unknown) (unknown) (no date) (unknown) (unknown) -bladder scans as needed, postvoid residual >500cc -straight cath, 2nd postvoid (units unknown) (unknown) (unknown) (no date) (unknown) (unknown) -cachexia, weakness, malaise balance coordination issues, and concerns for (units unknown) (unknown) (unknown) (no date) (unknown) (unknown) -continue Eliquis (units unknown) (unknown) (unknown) (no date) (unknown) (unknown) -continue amlodipine-was unable to contact patient's , we will need to (units unknown) (unknown) (unknown) (no date) (unknown) (unknown) -dietary consult ordered to evaluate and implement steps to improve caloric (units unknown) (unknown) (unknown) (no date) (unknown) (unknown) -initial troponin negative (trend x3), BNP 1430-patient has no edema and appear (units unknown) (unknown) (unknown) (no date) (unknown) (unknown) -initiated Zosyn (units unknown) (unknown) (unknown) (no date) (unknown) (unknown) -last echo in our records to of 2018 EF 55-60% (units unknown) (unknown) (unknown) (no date) (unknown) (unknown) -monitor for septic shock (units unknown) (unknown) (unknown) (no date) (unknown) (unknown) -monitor for starvation ketosis (units unknown) (unknown) (unknown) (no date) (unknown) (unknown) -ordered 1L bolus followed by [id number] cc/HR (units unknown) (unknown) (unknown) (no date) (unknown) (unknown) -pain and antiemetic management (units unknown) (unknown) (unknown) (no date) (unknown) (unknown) -patient's malnutrition places them at high risk for medical and surgical (units unknown) (unknown) (unknown) (no date) (unknown) (unknown) -phosphorus 4.1, bili 2.1, AST 61, ALT 63, alk-phos 428, total protein 5.8,PT (units unknown) (unknown) (unknown) (no date) (unknown) (unknown) -placed general surgery consult Dr. Turner (units unknown) (unknown) (unknown) (no date) (unknown) (unknown) -positive nitrate urinalysis culture pending, transaminitis (units unknown) (unknown) (unknown) (no date) (unknown) (unknown) -urinalysis brown, positive for protein, ketones, nitrites, bili 3+, leuks, RBC (units unknown) (unknown) (unknown) (no date) (unknown) (unknown) [id number] (units unknown) (unknown) (unknown) (no date) (unknown) (unknown) 06/16/22 06/16/22 06/16/22 (units unknown) (unknown) (unknown) (no date) (unknown) (unknown) 06/16/22 06/16/22 (units unknown) (unknown) (unknown) (no date) (unknown) (unknown) 06/16/22 12:35 (units unknown) (unknown) (unknown) (no date) (unknown) (unknown) 06/16/22 (units unknown) (unknown) (unknown) (no date) (unknown) (unknown) 1. Sepsis without septic shock, likely hepatobiliary origin, and UTI, acute, (units unknown) (unknown) (unknown) (no date) (unknown) (unknown) 10-30- Culture pending (units unknown) (unknown) (unknown) (no date) (unknown) (unknown) 12:35 12:35 12:35 (units unknown) (unknown) (unknown) (no date) (unknown) (unknown) 13:15 06/16/22 (units unknown) (unknown) (unknown) (no date) (unknown) (unknown) 13:30 (units unknown) (unknown) (unknown) (no date) (unknown) (unknown) 13:45 06/16/22 (units unknown) (unknown) (unknown) (no date) (unknown) (unknown) 13:46 06/16/22 (units unknown) (unknown) (unknown) (no date) (unknown) (unknown) 13:46 (units unknown) (unknown) (unknown) (no date) (unknown) (unknown) 14:00 06/16/22 (units unknown) (unknown) (unknown) (no date) (unknown) (unknown) 14:24 (units unknown) (unknown) (unknown) (no date) (unknown) (unknown) 14:30 06/16/22 (units unknown) (unknown) (unknown) (no date) (unknown) (unknown) 14:45 06/16/22 (units unknown) (unknown) (unknown) (no date) (unknown) (unknown) 15:00 (units unknown) (unknown) (unknown) (no date) (unknown) (unknown) 15:15 06/16/22 (units unknown) (unknown) (unknown) (no date) (unknown) (unknown) 15:30 06/16/22 (units unknown) (unknown) (unknown) (no date) (unknown) (unknown) 15:30 17:55 (units unknown) (unknown) (unknown) (no date) (unknown) (unknown) 15:34 06/16/22 (units unknown) (unknown) (unknown) (no date) (unknown) (unknown) 15:34 (units unknown) (unknown) (unknown) (no date) (unknown) (unknown) 15:45 06/16/22 (units unknown) (unknown) (unknown) (no date) (unknown) (unknown) 15:45 (units unknown) (unknown) (unknown) (no date) (unknown) (unknown) 16:00 06/16/22 (units unknown) (unknown) (unknown) (no date) (unknown) (unknown) 16:15 06/16/22 (units unknown) (unknown) (unknown) (no date) (unknown) (unknown) 16:15 (units unknown) (unknown) (unknown) (no date) (unknown) (unknown) 16:30 06/16/22 (units unknown) (unknown) (unknown) (no date) (unknown) (unknown) 16:31 06/16/22 (units unknown) (unknown) (unknown) (no date) (unknown) (unknown) 16:31 (units unknown) (unknown) (unknown) (no date) (unknown) (unknown) 16:45 06/16/22 (units unknown) (unknown) (unknown) (no date) (unknown) (unknown) 17.6, INR 1.5, PTT 38 (units unknown) (unknown) (unknown) (no date) (unknown) (unknown) 17.6, INR 1.5, PTT 38. Sodium 135, BUN 34, glucose 146, calcium 8.1, magnesium (units unknown) (unknown) (unknown) (no date) (unknown) (unknown) 17:00 06/16/22 (units unknown) (unknown) (unknown) (no date) (unknown) (unknown) 17:00 (units unknown) (unknown) (unknown) (no date) (unknown) (unknown) 17:15 06/16/22 (units unknown) (unknown) (unknown) (no date) (unknown) (unknown) 17:15 (units unknown) (unknown) (unknown) (no date) (unknown) (unknown) 17:30 06/16/22 (units unknown) (unknown) (unknown) (no date) (unknown) (unknown) 17:45 (units unknown) (unknown) (unknown) (no date) (unknown) (unknown) 17:46 06/16/22 (units unknown) (unknown) (unknown) (no date) (unknown) (unknown) 17:59 (units unknown) (unknown) (unknown) (no date) (unknown) (unknown) 18:00 06/16/22 (units unknown) (unknown) (unknown) (no date) (unknown) (unknown) 18:01 06/16/22 (units unknown) (unknown) (unknown) (no date) (unknown) (unknown) 18:15 06/16/22 (units unknown) (unknown) (unknown) (no date) (unknown) (unknown) 18:15 (units unknown) (unknown) (unknown) (no date) (unknown) (unknown) 18:30 06/16/22 (units unknown) (unknown) (unknown) (no date) (unknown) (unknown) 18:30 (units unknown) (unknown) (unknown) (no date) (unknown) (unknown) 18:45 06/16/22 (units unknown) (unknown) (unknown) (no date) (unknown) (unknown) 19:00 06/16/22 (units unknown) (unknown) (unknown) (no date) (unknown) (unknown) 19:00 (units unknown) (unknown) (unknown) (no date) (unknown) (unknown) 19:15 06/16/22 (units unknown) (unknown) (unknown) (no date) (unknown) (unknown) 19:15 (units unknown) (unknown) (unknown) (no date) (unknown) (unknown) 19:30 06/16/22 (units unknown) (unknown) (unknown) (no date) (unknown) (unknown) 19:45 06/16/22 (units unknown) (unknown) (unknown) (no date) (unknown) (unknown) 19:45 (units unknown) (unknown) (unknown) (no date) (unknown) (unknown) 2. Transaminitis, with elevated alkaline phosphate, acute, present on admission (units unknown) (unknown) (unknown) (no date) (unknown) (unknown) 2.6, phosphorus 4.1, bili 2.1, AST 61, ALT 63, alk-phos 428, total protein 5.8, (units unknown) (unknown) (unknown) (no date) (unknown) (unknown) 20:00 06/16/22 (units unknown) (unknown) (unknown) (no date) (unknown) (unknown) 20:00 (units unknown) (unknown) (unknown) (no date) (unknown) (unknown) 20:15 06/16/22 (units unknown) (unknown) (unknown) (no date) (unknown) (unknown) 20:30 06/16/22 (units unknown) (unknown) (unknown) (no date) (unknown) (unknown) 20:30 (units unknown) (unknown) (unknown) (no date) (unknown) (unknown) 20:45 06/16/22 (units unknown) (unknown) (unknown) (no date) (unknown) (unknown) 20:46 06/16/22 (units unknown) (unknown) (unknown) (no date) (unknown) (unknown) 20:46 (units unknown) (unknown) (unknown) (no date) (unknown) (unknown) 20:55 (units unknown) (unknown) (unknown) (no date) (unknown) (unknown) 20s. During admit interview patient is pleasantly confused orientated to self (units unknown) (unknown) (unknown) (no date) (unknown) (unknown) 3. UTI, acute, present on admission (units unknown) (unknown) (unknown) (no date) (unknown) (unknown) 4 mos (units unknown) (unknown) (unknown) (no date) (unknown) (unknown) 4. Encephalopathy/cogn itive impairment, unclear if this is chronic or acute, (units unknown) (unknown) (unknown) (no date) (unknown) (unknown) 4.3, repeat 2.7, procalcitonin 3.27, . bili 2.1, AST 61, ALT 63, alk-phos (units unknown) (unknown) (unknown) (no date) (unknown) (unknown) 428, total protein 5.8, albumin 3.1, CK 53, . . Head CT negative. CXR (units unknown) (unknown) (unknown) (no date) (unknown) (unknown) 5. Essential hypertension, chronic, present on admission (units unknown) (unknown) (unknown) (no date) (unknown) (unknown) 6. Atrial fibrillation, with pacemaker, on chronic Eliquis, acute on chronic, (units unknown) (unknown) (unknown) (no date) (unknown) (unknown) 7. Malnutrition, mild, moderate, severe, acute on chronic, present on admission (units unknown) (unknown) (unknown) (no date) (unknown) (unknown) 98% on room air. Patient did get up and ambulate to the restroom w/MA without (units unknown) (unknown) (unknown) (no date) (unknown) (unknown) 98% on room air. Patient has no WBC, but left shiftneut 8200, initial lactate (units unknown) (unknown) (unknown) (no date) (unknown) (unknown) ?Possible mild right and retrocardiac opacities Chest CT demonstrated bibasilar (units unknown) (unknown) (unknown) (no date) (unknown) (unknown) A1C 5.8% (units unknown) (unknown) (unknown) (no date) (unknown) (unknown) ALT 63 H (units unknown) (unknown) (unknown) (no date) (unknown) (unknown) ALT (units unknown) (unknown) (unknown) (no date) (unknown) (unknown) APTT 38 H (units unknown) (unknown) (unknown) (no date) (unknown) (unknown) APTT (units unknown) (unknown) (unknown) (no date) (unknown) (unknown) AST 61 H (units unknown) (unknown) (unknown) (no date) (unknown) (unknown) AST (units unknown) (unknown) (unknown) (no date) (unknown) (unknown) Abdomen: Soft nontender, negative for organomegaly, or masses. Bowel sounds (units unknown) (unknown) (unknown) (no date) (unknown) (unknown) Age/Sex: 86 / M (units unknown) (unknown) (unknown) (no date) (unknown) (unknown) Albumin 3.1 L (units unknown) (unknown) (unknown) (no date) (unknown) (unknown) Albumin (units unknown) (unknown) (unknown) (no date) (unknown) (unknown) Albumin/Globulin Ratio 1.1 (units unknown) (unknown) (unknown) (no date) (unknown) (unknown) Albumin/Globulin Ratio (units unknown) (unknown) (unknown) (no date) (unknown) (unknown) Alkaline Phosphatase 428 H (units unknown) (unknown) (unknown) (no date) (unknown) (unknown) Alkaline Phosphatase (units unknown) (unknown) (unknown) (no date) (unknown) (unknown) Allergies (units unknown) (unknown) (unknown) (no date) (unknown) (unknown) Allergy/AdvReac Type Severity Reaction Status Date / Time (units unknown) (unknown) (unknown) (no date) (unknown) (unknown) Assessment + Plan narrative: (units unknown) (unknown) (unknown) (no date) (unknown) (unknown) Assessment + Plan (units unknown) (unknown) (unknown) (no date) (unknown) (unknown) Asthma (units unknown) (unknown) (unknown) (no date) (unknown) (unknown) Atrial fibrillation (units unknown) (unknown) (unknown) (no date) (unknown) (unknown) BUN 34 H (units unknown) (unknown) (unknown) (no date) (unknown) (unknown) BUN (units unknown) (unknown) (unknown) (no date) (unknown) (unknown) BUN/Creatinine Ratio 34.3 H (units unknown) (unknown) (unknown) (no date) (unknown) (unknown) BUN/Creatinine Ratio (units unknown) (unknown) (unknown) (no date) (unknown) (unknown) Baso # (Auto) 100 (units unknown) (unknown) (unknown) (no date) (unknown) (unknown) Baso # (Auto) (units unknown) (unknown) (unknown) (no date) (unknown) (unknown) Baso % (Auto) 0.8 (units unknown) (unknown) (unknown) (no date) (unknown) (unknown) Baso % (Auto) (units unknown) (unknown) (unknown) (no date) (unknown) (unknown) Blood Pressure 141/57 H (units unknown) (unknown) (unknown) (no date) (unknown) (unknown) Blood Pressure 141/73 H (units unknown) (unknown) (unknown) (no date) (unknown) (unknown) Blood Pressure 142/65 H 156/70 H (units unknown) (unknown) (unknown) (no date) (unknown) (unknown) Blood Pressure 142/67 H (units unknown) (unknown) (unknown) (no date) (unknown) (unknown) Blood Pressure 143/67 H (units unknown) (unknown) (unknown) (no date) (unknown) (unknown) Blood Pressure 145/69 H (units unknown) (unknown) (unknown) (no date) (unknown) (unknown) Blood Pressure 146/69 H (units unknown) (unknown) (unknown) (no date) (unknown) (unknown) Blood Pressure 147/71 H 150/72 H (units unknown) (unknown) (unknown) (no date) (unknown) (unknown) Blood Pressure 149/68 H 130/59 L (units unknown) (unknown) (unknown) (no date) (unknown) (unknown) Blood Pressure 149/78 H 155/70 H (units unknown) (unknown) (unknown) (no date) (unknown) (unknown) Blood Pressure 150/73 H (units unknown) (unknown) (unknown) (no date) (unknown) (unknown) Blood Pressure 151/72 H (units unknown) (unknown) (unknown) (no date) (unknown) (unknown) Blood Pressure 154/73 H (units unknown) (unknown) (unknown) (no date) (unknown) (unknown) Blood Pressure 156/72 H 151/72 H (units unknown) (unknown) (unknown) (no date) (unknown) (unknown) Blood Pressure 162/114 H (units unknown) (unknown) (unknown) (no date) (unknown) (unknown) Blood Pressure 164/94 H 164/96 H (units unknown) (unknown) (unknown) (no date) (unknown) (unknown) Blood Pressure 179/74 H 179/94 H (units unknown) (unknown) (unknown) (no date) (unknown) (unknown) Blood Pressure 186/112 H 169/75 H (units unknown) (unknown) (unknown) (no date) (unknown) (unknown) Blood Pressure (units unknown) (unknown) (unknown) (no date) (unknown) (unknown) CK-MB (CK-2) Rel Index TNP (units unknown) (unknown) (unknown) (no date) (unknown) (unknown) CK-MB (CK-2) Rel Index (units unknown) (unknown) (unknown) (no date) (unknown) (unknown) CK-MB (CK-2) TNP (units unknown) (unknown) (unknown) (no date) (unknown) (unknown) CK-MB (CK-2) (units unknown) (unknown) (unknown) (no date) (unknown) (unknown) COVID, influenza a/B/RSV negative (units unknown) (unknown) (unknown) (no date) (unknown) (unknown) Calcium 8.1 L (units unknown) (unknown) (unknown) (no date) (unknown) (unknown) Calcium (units unknown) (unknown) (unknown) (no date) (unknown) (unknown) Carbon Dioxide 28 (units unknown) (unknown) (unknown) (no date) (unknown) (unknown) Carbon Dioxide (units unknown) (unknown) (unknown) (no date) (unknown) (unknown) Cardio: regular rate and rhythm without murmur, rubs, or gallops, no carotid (units unknown) (unknown) (unknown) (no date) (unknown) (unknown) Chest: Equal expansion, positive kyphoscoliosis, no nasal flaring, retractions, (units unknown) (unknown) (unknown) (no date) (unknown) (unknown) Chief complaint: Pain near pacemaker (units unknown) (unknown) (unknown) (no date) (unknown) (unknown) Chloride 99 (units unknown) (unknown) (unknown) (no date) (unknown) (unknown) Chloride (units unknown) (unknown) (unknown) (no date) (unknown) (unknown) Chronic anticoagulation (units unknown) (unknown) (unknown) (no date) (unknown) (unknown) Creatinine 0.99 (units unknown) (unknown) (unknown) (no date) (unknown) (unknown) Creatinine (units unknown) (unknown) (unknown) (no date) (unknown) (unknown) Critical Care time: (units unknown) (unknown) (unknown) (no date) (unknown) (unknown) : 1935 Acct:[id number] (units unknown) (unknown) (unknown) (no date) (unknown) (unknown) Date Patient Seen: 06/16/22 (units unknown) (unknown) (unknown) (no date) (unknown) (unknown) Date of Service: 06/16/22 (units unknown) (unknown) (unknown) (no date) (unknown) (unknown) Yoseph Cardoso is a 86-year-old male with a history of atrial fibrillation, with (units unknown) (unknown) (unknown) (no date) (unknown) (unknown) Due to patient's cognitive impairment/encephal opathy unable to obtain HPI, ROS, (units unknown) (unknown) (unknown) (no date) (unknown) (unknown) Environment (units unknown) (unknown) (unknown) (no date) (unknown) (unknown) Eos # (Auto) 0 (units unknown) (unknown) (unknown) (no date) (unknown) (unknown) Eos # (Auto) (units unknown) (unknown) (unknown) (no date) (unknown) (unknown) Eos % (Auto) 0.1 L (units unknown) (unknown) (unknown) (no date) (unknown) (unknown) Eos % (Auto) (units unknown) (unknown) (unknown) (no date) (unknown) (unknown) Essential hypertension (units unknown) (unknown) (unknown) (no date) (unknown) (unknown) Estimated GFR > 60 (units unknown) (unknown) (unknown) (no date) (unknown) (unknown) Estimated GFR (units unknown) (unknown) (unknown) (no date) (unknown) (unknown) Exam Narrative: (units unknown) (unknown) (unknown) (no date) (unknown) (unknown) Exam (units unknown) (unknown) (unknown) (no date) (unknown) (unknown) Family + Social History (units unknown) (unknown) (unknown) (no date) (unknown) (unknown) Family History (units unknown) (unknown) (unknown) (no date) (unknown) (unknown) Father Diabetes mellitus (units unknown) (unknown) (unknown) (no date) (unknown) (unknown) Feels Safe in Current Yes, patient lives at home with his . (units unknown) (unknown) (unknown) (no date) (unknown) (unknown) Full range of motion intact radial and pedal pulses are normal. (units unknown) (unknown) (unknown) (no date) (unknown) (unknown) General: Patient is a pleasantly confused cachectic, frail, elderly male, in no (units unknown) (unknown) (unknown) (no date) (unknown) (unknown) Globulin 2.7 (units unknown) (unknown) (unknown) (no date) (unknown) (unknown) Globulin (units unknown) (unknown) (unknown) (no date) (unknown) (unknown) Glucose 146 H (units unknown) (unknown) (unknown) (no date) (unknown) (unknown) Glucose (units unknown) (unknown) (unknown) (no date) (unknown) (unknown) HEENT: Normocephalic, atraumatic, extraocular muscles intact, oral pharynx is (units unknown) (unknown) (unknown) (no date) (unknown) (unknown) Hct 46.6 (units unknown) (unknown) (unknown) (no date) (unknown) (unknown) Hct (units unknown) (unknown) (unknown) (no date) (unknown) (unknown) Head CT negative. CXR ?Possible mild right and retrocardiac opacities Chest CT (units unknown) (unknown) (unknown) (no date) (unknown) (unknown) Hgb 15.4 (units unknown) (unknown) (unknown) (no date) (unknown) (unknown) Hgb (units unknown) (unknown) (unknown) (no date) (unknown) (unknown) History + Physical Report (units unknown) (unknown) (unknown) (no date) (unknown) (unknown) History of Present Illness (units unknown) (unknown) (unknown) (no date) (unknown) (unknown) History of melanoma (units unknown) (unknown) (unknown) (no date) (unknown) (unknown) History of permanent cardiac pacemaker placement (units unknown) (unknown) (unknown) (no date) (unknown) (unknown) History (units unknown) (unknown) (unknown) (no date) (unknown) (unknown) Home Medications and Allergies (units unknown) (unknown) (unknown) (no date) (unknown) (unknown) Home Medications (units unknown) (unknown) (unknown) (no date) (unknown) (unknown) I spent a total of [] minutes of critical care time on this patient's care (units unknown) (unknown) (unknown) (no date) (unknown) (unknown) INR 1.5 H (units unknown) (unknown) (unknown) (no date) (unknown) (unknown) INR (units unknown) (unknown) (unknown) (no date) (unknown) (unknown) Influenza A (RT-PCR) Flu a negative (units unknown) (unknown) (unknown) (no date) (unknown) (unknown) Influenza A (RT-PCR) (units unknown) (unknown) (unknown) (no date) (unknown) (unknown) Influenza B (RT-PCR) Flu b negative (units unknown) (unknown) (unknown) (no date) (unknown) (unknown) Influenza B (RT-PCR) (units unknown) (unknown) (unknown) (no date) (unknown) (unknown) [address] [id number] (units unknown) (unknown) (unknown) (no date) (unknown) (unknown) Laboratory Results - last 24 hr (units unknown) (unknown) (unknown) (no date) (unknown) (unknown) Labs (units unknown) (unknown) (unknown) (no date) (unknown) (unknown) Labs: (units unknown) (unknown) (unknown) (no date) (unknown) (unknown) Lactate 2.7 H (units unknown) (unknown) (unknown) (no date) (unknown) (unknown) Lactate 4.3 H* (units unknown) (unknown) (unknown) (no date) (unknown) (unknown) Lactate (units unknown) (unknown) (unknown) (no date) (unknown) (unknown) Lipase 45 (units unknown) (unknown) (unknown) (no date) (unknown) (unknown) Lipase (units unknown) (unknown) (unknown) (no date) (unknown) (unknown) Lungs: Auscultation of all lung troy are clear without adventitious sounds, (units unknown) (unknown) (unknown) (no date) (unknown) (unknown) Lymph # (Auto) 400 L (units unknown) (unknown) (unknown) (no date) (unknown) (unknown) Lymph # (Auto) (units unknown) (unknown) (unknown) (no date) (unknown) (unknown) Lymph % (Auto) 4.6 L (units unknown) (unknown) (unknown) (no date) (unknown) (unknown) Lymph % (Auto) (units unknown) (unknown) (unknown) (no date) (unknown) (unknown) MCH 30.4 (units unknown) (unknown) (unknown) (no date) (unknown) (unknown) MCH (units unknown) (unknown) (unknown) (no date) (unknown) (unknown) MCHC 33.0 (units unknown) (unknown) (unknown) (no date) (unknown) (unknown) MCHC (units unknown) (unknown) (unknown) (no date) (unknown) (unknown) MCV 92.4 (units unknown) (unknown) (unknown) (no date) (unknown) (unknown) MCV (units unknown) (unknown) (unknown) (no date) (unknown) (unknown) Magnesium 2.6 H (units unknown) (unknown) (unknown) (no date) (unknown) (unknown) Magnesium (units unknown) (unknown) (unknown) (no date) (unknown) (unknown) Medical History (Updated 06/17/22 @ 00:55 by Hawa Michael [facility]) (units unknown) (unknown) (unknown) (no date) (unknown) (unknown) Medication Instructions Recorded Confirmed Type (units unknown) (unknown) (unknown) (no date) (unknown) (unknown) Meds (units unknown) (unknown) (unknown) (no date) (unknown) (unknown) [place] # (Auto) 900 (units unknown) (unknown) (unknown) (no date) (unknown) (unknown) [place] # (Auto) (units unknown) (unknown) (unknown) (no date) (unknown) (unknown) [place] % (Auto) 9.4 (units unknown) (unknown) (unknown) (no date) (unknown) (unknown) [place] % (Auto) (units unknown) (unknown) (unknown) (no date) (unknown) (unknown) Mother No problems noted. (units unknown) (unknown) (unknown) (no date) (unknown) (unknown) Musculoskeletal: Diffuse but equal throughout all extremity muscle wasting, no (units unknown) (unknown) (unknown) (no date) (unknown) (unknown) NT-Pro-B Natriuret Pep 1430 H (units unknown) (unknown) (unknown) (no date) (unknown) (unknown) NT-Pro-B Natriuret Pep (units unknown) (unknown) (unknown) (no date) (unknown) (unknown) Narrative (units unknown) (unknown) (unknown) (no date) (unknown) (unknown) Narrative: (units unknown) (unknown) (unknown) (no date) (unknown) (unknown) Negative for JVD (units unknown) (unknown) (unknown) (no date) (unknown) (unknown) Neuro: Alert and orientated x2 Person + Place , moves all extremities, (units unknown) (unknown) (unknown) (no date) (unknown) (unknown) Neut # (Auto) 8200 H (units unknown) (unknown) (unknown) (no date) (unknown) (unknown) Neut # (Auto) (units unknown) (unknown) (unknown) (no date) (unknown) (unknown) Neut % (Auto) 85.1 H (units unknown) (unknown) (unknown) (no date) (unknown) (unknown) Neut % (Auto) (units unknown) (unknown) (unknown) (no date) (unknown) (unknown) Objective (units unknown) (unknown) (unknown) (no date) (unknown) (unknown) Oxygen Delivery Method Room Air (units unknown) (unknown) (unknown) (no date) (unknown) (unknown) Oxygen Delivery Method (units unknown) (unknown) (unknown) (no date) (unknown) (unknown) PT 17.6 H (units unknown) (unknown) (unknown) (no date) (unknown) (unknown) PT (units unknown) (unknown) (unknown) (no date) (unknown) (unknown) Pacemaker (units unknown) (unknown) (unknown) (no date) (unknown) (unknown) Patient History (units unknown) (unknown) (unknown) (no date) (unknown) (unknown) Patient: Yoseph Cardoso MR#: [id number] (units unknown) (unknown) (unknown) (no date) (unknown) (unknown) Phosphorus 4.1 H (units unknown) (unknown) (unknown) (no date) (unknown) (unknown) Phosphorus (units unknown) (unknown) (unknown) (no date) (unknown) (unknown) Plt Count 222 (units unknown) (unknown) (unknown) (no date) (unknown) (unknown) Plt Count (units unknown) (unknown) (unknown) (no date) (unknown) (unknown) Potassium 4.8 (units unknown) (unknown) (unknown) (no date) (unknown) (unknown) Potassium (units unknown) (unknown) (unknown) (no date) (unknown) (unknown) Procalcitonin 3.27 H (units unknown) (unknown) (unknown) (no date) (unknown) (unknown) Procalcitonin (units unknown) (unknown) (unknown) (no date) (unknown) (unknown) Provider: Hawa MichaelP-BC (units unknown) (unknown) (unknown) (no date) (unknown) (unknown) Psych: Patient has a well-kept appearance, pleasant affect, mental status (units unknown) (unknown) (unknown) (no date) (unknown) (unknown) Pulse Oximetry 93 100 (units unknown) (unknown) (unknown) (no date) (unknown) (unknown) Pulse Oximetry 94 96 (units unknown) (unknown) (unknown) (no date) (unknown) (unknown) Pulse Oximetry 95 (units unknown) (unknown) (unknown) (no date) (unknown) (unknown) Pulse Oximetry 96 91 (units unknown) (unknown) (unknown) (no date) (unknown) (unknown) Pulse Oximetry 96 99 (units unknown) (unknown) (unknown) (no date) (unknown) (unknown) Pulse Oximetry 96 (units unknown) (unknown) (unknown) (no date) (unknown) (unknown) Pulse Oximetry 97 96 97 (units unknown) (unknown) (unknown) (no date) (unknown) (unknown) Pulse Oximetry 97 97 98 (units unknown) (unknown) (unknown) (no date) (unknown) (unknown) Pulse Oximetry 97 97 (units unknown) (unknown) (unknown) (no date) (unknown) (unknown) Pulse Oximetry 97 (units unknown) (unknown) (unknown) (no date) (unknown) (unknown) Pulse Oximetry 98 97 (units unknown) (unknown) (unknown) (no date) (unknown) (unknown) Pulse Oximetry 98 (units unknown) (unknown) (unknown) (no date) (unknown) (unknown) Pulse Oximetry (units unknown) (unknown) (unknown) (no date) (unknown) (unknown) Pulse Rate 111 H (units unknown) (unknown) (unknown) (no date) (unknown) (unknown) Pulse Rate 114 H 118 H (units unknown) (unknown) (unknown) (no date) (unknown) (unknown) Pulse Rate 154 H (units unknown) (unknown) (unknown) (no date) (unknown) (unknown) Pulse Rate 72 66 (units unknown) (unknown) (unknown) (no date) (unknown) (unknown) Pulse Rate 72 71 (units unknown) (unknown) (unknown) (no date) (unknown) (unknown) Pulse Rate 72 74 (units unknown) (unknown) (unknown) (no date) (unknown) (unknown) Pulse Rate 72 (units unknown) (unknown) (unknown) (no date) (unknown) (unknown) Pulse Rate 73 74 (units unknown) (unknown) (unknown) (no date) (unknown) (unknown) Pulse Rate 73 87 98 H (units unknown) (unknown) (unknown) (no date) (unknown) (unknown) Pulse Rate 73 (units unknown) (unknown) (unknown) (no date) (unknown) (unknown) Pulse Rate 74 104 H 106 H (units unknown) (unknown) (unknown) (no date) (unknown) (unknown) Pulse Rate 75 116 H (units unknown) (unknown) (unknown) (no date) (unknown) (unknown) Pulse Rate 75 70 (units unknown) (unknown) (unknown) (no date) (unknown) (unknown) Pulse Rate 75 74 74 (units unknown) (unknown) (unknown) (no date) (unknown) (unknown) Pulse Rate 75 (units unknown) (unknown) (unknown) (no date) (unknown) (unknown) Pulse Rate 76 (units unknown) (unknown) (unknown) (no date) (unknown) (unknown) Pulse Rate 78 75 (units unknown) (unknown) (unknown) (no date) (unknown) (unknown) Pulse Rate 84 77 (units unknown) (unknown) (unknown) (no date) (unknown) (unknown) Pulse Rate 86 72 (units unknown) (unknown) (unknown) (no date) (unknown) (unknown) Pulse Rate 98 H (units unknown) (unknown) (unknown) (no date) (unknown) (unknown) RBC 5.05 (units unknown) (unknown) (unknown) (no date) (unknown) (unknown) RBC (units unknown) (unknown) (unknown) (no date) (unknown) (unknown) RDW 14.4 (units unknown) (unknown) (unknown) (no date) (unknown) (unknown) RDW (units unknown) (unknown) (unknown) (no date) (unknown) (unknown) RSV (PCR) Negative (units unknown) (unknown) (unknown) (no date) (unknown) (unknown) RSV (PCR) (units unknown) (unknown) (unknown) (no date) (unknown) (unknown) Respiratory Rate 12 25 H (units unknown) (unknown) (unknown) (no date) (unknown) (unknown) Respiratory Rate 13 26 H (units unknown) (unknown) (unknown) (no date) (unknown) (unknown) Respiratory Rate 16 20 (units unknown) (unknown) (unknown) (no date) (unknown) (unknown) Respiratory Rate 17 26 H (units unknown) (unknown) (unknown) (no date) (unknown) (unknown) Respiratory Rate 17 (units unknown) (unknown) (unknown) (no date) (unknown) (unknown) Respiratory Rate 18 32 H (units unknown) (unknown) (unknown) (no date) (unknown) (unknown) Respiratory Rate 18 (units unknown) (unknown) (unknown) (no date) (unknown) (unknown) Respiratory Rate 19 18 (units unknown) (unknown) (unknown) (no date) (unknown) (unknown) Respiratory Rate 19 34 H 39 H (units unknown) (unknown) (unknown) (no date) (unknown) (unknown) Respiratory Rate 19 (units unknown) (unknown) (unknown) (no date) (unknown) (unknown) Respiratory Rate 20 (units unknown) (unknown) (unknown) (no date) (unknown) (unknown) Respiratory Rate 22 20 (units unknown) (unknown) (unknown) (no date) (unknown) (unknown) Respiratory Rate 23 17 16 (units unknown) (unknown) (unknown) (no date) (unknown) (unknown) Respiratory Rate 23 18 (units unknown) (unknown) (unknown) (no date) (unknown) (unknown) Respiratory Rate 24 19 (units unknown) (unknown) (unknown) (no date) (unknown) (unknown) Respiratory Rate 24 23 (units unknown) (unknown) (unknown) (no date) (unknown) (unknown) Respiratory Rate 27 H (units unknown) (unknown) (unknown) (no date) (unknown) (unknown) Respiratory Rate 29 H (units unknown) (unknown) (unknown) (no date) (unknown) (unknown) Respiratory Rate 30 H 24 (units unknown) (unknown) (unknown) (no date) (unknown) (unknown) Respiratory Rate (units unknown) (unknown) (unknown) (no date) (unknown) (unknown) Review of Systems (units unknown) (unknown) (unknown) (no date) (unknown) (unknown) SARS-CoV-2 (PCR) Negative (units unknown) (unknown) (unknown) (no date) (unknown) (unknown) SARS-CoV-2 (PCR) (units unknown) (unknown) (unknown) (no date) (unknown) (unknown) Safety + Behavioral: (units unknown) (unknown) (unknown) (no date) (unknown) (unknown) Signed By: (units unknown) (unknown) (unknown) (no date) (unknown) (unknown) Skin: Warm Very dry, poor turgor, appears significantly dehydrated and wasting (units unknown) (unknown) (unknown) (no date) (unknown) (unknown) Smoking Status never (units unknown) (unknown) (unknown) (no date) (unknown) (unknown) Sodium 135 L (units unknown) (unknown) (unknown) (no date) (unknown) (unknown) Sodium (units unknown) (unknown) (unknown) (no date) (unknown) (unknown) Substance Use Type does not use (units unknown) (unknown) (unknown) (no date) (unknown) (unknown) Surgical History (Updated 06/16/22 @ 21:27 by Hawa Michael [facility]) (units unknown) (unknown) (unknown) (no date) (unknown) (unknown) Temperature 98.1 F (units unknown) (unknown) (unknown) (no date) (unknown) (unknown) Temperature (units unknown) (unknown) (unknown) (no date) (unknown) (unknown) Time Patient Seen: 15:35 (units unknown) (unknown) (unknown) (no date) (unknown) (unknown) Time Spent With Patient (units unknown) (unknown) (unknown) (no date) (unknown) (unknown) Tobacco + Substance use: (units unknown) (unknown) (unknown) (no date) (unknown) (unknown) Total Bilirubin 2.1 H (units unknown) (unknown) (unknown) (no date) (unknown) (unknown) Total Bilirubin (units unknown) (unknown) (unknown) (no date) (unknown) (unknown) Total Creatine Kinase 53 L (units unknown) (unknown) (unknown) (no date) (unknown) (unknown) Total Creatine Kinase (units unknown) (unknown) (unknown) (no date) (unknown) (unknown) Total Protein 5.8 L (units unknown) (unknown) (unknown) (no date) (unknown) (unknown) Total Protein (units unknown) (unknown) (unknown) (no date) (unknown) (unknown) Troponin I < 0.012 (units unknown) (unknown) (unknown) (no date) (unknown) (unknown) Troponin I (units unknown) (unknown) (unknown) (no date) (unknown) (unknown) Upon admit BP 149/78, tachycardic heart rate 154, tachypneic R 29, O2 saturation (units unknown) (unknown) (unknown) (no date) (unknown) (unknown) Ur Bilirubin Confirm Positive H (units unknown) (unknown) (unknown) (no date) (unknown) (unknown) Ur Bilirubin Confirm (units unknown) (unknown) (unknown) (no date) (unknown) (unknown) Ur Culture Indicated? Specimen cultured (units unknown) (unknown) (unknown) (no date) (unknown) (unknown) Ur Culture Indicated? (units unknown) (unknown) (unknown) (no date) (unknown) (unknown) Ur Leukocyte Esterase Trace H (units unknown) (unknown) (unknown) (no date) (unknown) (unknown) Ur Leukocyte Esterase (units unknown) (unknown) (unknown) (no date) (unknown) (unknown) Ur Specific [place] 1.020 (units unknown) (unknown) (unknown) (no date) (unknown) (unknown) Ur Specific [place] (units unknown) (unknown) (unknown) (no date) (unknown) (unknown) Ur Squamous Epith Cells 1-5 /hpf (units unknown) (unknown) (unknown) (no date) (unknown) (unknown) Ur Squamous Epith Cells (units unknown) (unknown) (unknown) (no date) (unknown) (unknown) Urine Appearance Cloudy (units unknown) (unknown) (unknown) (no date) (unknown) (unknown) Urine Appearance (units unknown) (unknown) (unknown) (no date) (unknown) (unknown) Urine Bacteria None seen (units unknown) (unknown) (unknown) (no date) (unknown) (unknown) Urine Bacteria (units unknown) (unknown) (unknown) (no date) (unknown) (unknown) Urine Bilirubin 3+ H (units unknown) (unknown) (unknown) (no date) (unknown) (unknown) Urine Bilirubin (units unknown) (unknown) (unknown) (no date) (unknown) (unknown) Urine Color Brown (units unknown) (unknown) (unknown) (no date) (unknown) (unknown) Urine Color (units unknown) (unknown) (unknown) (no date) (unknown) (unknown) Urine Glucose (UA) Negative (units unknown) (unknown) (unknown) (no date) (unknown) (unknown) Urine Glucose (UA) (units unknown) (unknown) (unknown) (no date) (unknown) (unknown) Urine Ketones 1+ H (units unknown) (unknown) (unknown) (no date) (unknown) (unknown) Urine Ketones (units unknown) (unknown) (unknown) (no date) (unknown) (unknown) Urine Nitrate Positive H (units unknown) (unknown) (unknown) (no date) (unknown) (unknown) Urine Nitrate (units unknown) (unknown) (unknown) (no date) (unknown) (unknown) Urine Occult Blood Trace-intact (units unknown) (unknown) (unknown) (no date) (unknown) (unknown) Urine Occult Blood (units unknown) (unknown) (unknown) (no date) (unknown) (unknown) Urine Protein 1+ H (units unknown) (unknown) (unknown) (no date) (unknown) (unknown) Urine Protein (units unknown) (unknown) (unknown) (no date) (unknown) (unknown) Urine RBC 10-30/hpf H (units unknown) (unknown) (unknown) (no date) (unknown) (unknown) Urine RBC (units unknown) (unknown) (unknown) (no date) (unknown) (unknown) Urine Urobilinogen 1.0 (units unknown) (unknown) (unknown) (no date) (unknown) (unknown) Urine Urobilinogen (units unknown) (unknown) (unknown) (no date) (unknown) (unknown) Urine WBC 1-5/hpf (units unknown) (unknown) (unknown) (no date) (unknown) (unknown) Urine WBC (units unknown) (unknown) (unknown) (no date) (unknown) (unknown) Urine pH 6.5 (units unknown) (unknown) (unknown) (no date) (unknown) (unknown) Urine pH (units unknown) (unknown) (unknown) (no date) (unknown) (unknown) Vital Signs (units unknown) (unknown) (unknown) (no date) (unknown) (unknown) WBC 9.6 (units unknown) (unknown) (unknown) (no date) (unknown) (unknown) WBC (units unknown) (unknown) (unknown) (no date) (unknown) (unknown) [Embedded Image Not Available] (units unknown) (unknown) (unknown) (no date) (unknown) (unknown) [From Prevnar] and feet x (units unknown) (unknown) (unknown) (no date) (unknown) (unknown) a recent 30 lb weight loss, and night sweats with a shuffling gait x6 weeks. He (units unknown) (unknown) (unknown) (no date) (unknown) (unknown) after. (units unknown) (unknown) (unknown) (no date) (unknown) (unknown) albumin 3.1, CK 53, initial troponin negative, BNP 1430. EKG atrial sensed (units unknown) (unknown) (unknown) (no date) (unknown) (unknown) alcohol intake frequency a few times a month (units unknown) (unknown) (unknown) (no date) (unknown) (unknown) amlodipine 5 mg tablet 5 mg PO DAILY 06/16/22 06/16/22 History (units unknown) (unknown) (unknown) (no date) (unknown) (unknown) and intact without rashes, ulcerations or petechiae. (units unknown) (unknown) (unknown) (no date) (unknown) (unknown) and place, but a very poor historian, stated that 'he came in today by himself (units unknown) (unknown) (unknown) (no date) (unknown) (unknown) apixaban 5 mg tablet (Eliquis) 5 mg PO BID blood thinner 06/16/22 06/16/22 (units unknown) (unknown) (unknown) (no date) (unknown) (unknown) appears is no distress at this time, no apparent jaundice, right upper quadrant (units unknown) (unknown) (unknown) (no date) (unknown) (unknown) are present in all 4 quadrants without guarding or rebound, no CVA tenderness. (units unknown) (unknown) (unknown) (no date) (unknown) (unknown) attitude thought context and judgment are inappropriate- confused, poor (units unknown) (unknown) (unknown) (no date) (unknown) (unknown) because he had black urine this morning'. He did not recall seeing Dr. Gillette, (units unknown) (unknown) (unknown) (no date) (unknown) (unknown) bruit, no cardiac pulsations present. (units unknown) (unknown) (unknown) (no date) (unknown) (unknown) cardiology's office due to deteriorating health concerns. patient admitted for (units unknown) (unknown) (unknown) (no date) (unknown) (unknown) cardiology's office due to his significant presentation of cachexia, weakness, (units unknown) (unknown) (unknown) (no date) (unknown) (unknown) clear and mucous membranes are dry. Neck is supple and symmetric, trachea is (units unknown) (unknown) (unknown) (no date) (unknown) (unknown) complications in relation to acute illness/chronic illness. This increases the (units unknown) (unknown) (unknown) (no date) (unknown) (unknown) conjugate to of hands (units unknown) (unknown) (unknown) (no date) (unknown) (unknown) demonstrated bibasilar infiltrates versus inflammatory pulmonary opacities mild (units unknown) (unknown) (unknown) (no date) (unknown) (unknown) differential also includes neoplastic processes as well as infectious (units unknown) (unknown) (unknown) (no date) (unknown) (unknown) difficulty in complexity of medical management and increases the chances poor (units unknown) (unknown) (unknown) (no date) (unknown) (unknown) difficulty, struggles slightly with given directions. Patient has no WBC, but (units unknown) (unknown) (unknown) (no date) (unknown) (unknown) dilated. (units unknown) (unknown) (unknown) (no date) (unknown) (unknown) distress at this time. (units unknown) (unknown) (unknown) (no date) (unknown) (unknown) etiologies such as micro abscesses (units unknown) (unknown) (unknown) (no date) (unknown) (unknown) fluticasone propionate 44 44 mcg inhalation DAILY 06/16/22 06/16/22 History (units unknown) (unknown) (unknown) (no date) (unknown) (unknown) for mild sepsis, transaminitis, UTI, encephalopathy. (units unknown) (unknown) (unknown) (no date) (unknown) (unknown) gabapentin 300 mg capsule 300 mg PO BID 06/16/22 06/16/22 History (units unknown) (unknown) (unknown) (no date) (unknown) (unknown) greater than left pulmonary effusion. patient admitted for mild sepsis, (units unknown) (unknown) (unknown) (no date) (unknown) (unknown) historian. (units unknown) (unknown) (unknown) (no date) (unknown) (unknown) immune suppression. (units unknown) (unknown) (unknown) (no date) (unknown) (unknown) infiltrates versus inflammatory pulmonary opacities mild to moderate right (units unknown) (unknown) (unknown) (no date) (unknown) (unknown) intake and nutrition. 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 Numerous (units unknown) (unknown) (unknown) (no date) (unknown) (unknown) malaise, balance coordination issues, and concerns for neoplastic syndrome with (units unknown) (unknown) (unknown) (no date) (unknown) (unknown) markers. (units unknown) (unknown) (unknown) (no date) (unknown) (unknown) mcg/actuation HFA aerosol inhaler (units unknown) (unknown) (unknown) (no date) (unknown) (unknown) medication reconciliation accurately. (units unknown) (unknown) (unknown) (no date) (unknown) (unknown) midline, no adenopathy, no thyroid enlargement, nontender, no masses palpated. (units unknown) (unknown) (unknown) (no date) (unknown) (unknown) mild sepsis, transaminitis, UTI, encephalopathy. 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 Patient denies any pain, and (units unknown) (unknown) (unknown) (no date) (unknown) (unknown) obvious deformity, crepitus, effusions, cyanosis, clubbing or edema present. (units unknown) (unknown) (unknown) (no date) (unknown) (unknown) on room air. (units unknown) (unknown) (unknown) (no date) (unknown) (unknown) opacities mild to moderate right greater than left pulmonary effusion. (units unknown) (unknown) (unknown) (no date) (unknown) (unknown) or labored breathing, mildly tachypneic. 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 Gillette (units unknown) (unknown) (unknown) (no date) (unknown) (unknown) pain, or fever. (units unknown) (unknown) (unknown) (no date) (unknown) (unknown) pneumococcal 7-valent AdvReac Intermediate swelling Verified 06/16/22 12:46 (units unknown) (unknown) (unknown) (no date) (unknown) (unknown) present on admission (units unknown) (unknown) (unknown) (no date) (unknown) (unknown) residual>500cc place Brice (units unknown) (unknown) (unknown) (no date) (unknown) (unknown) sensation to touch intact, no gross deficits noted of cranial nerves. (units unknown) (unknown) (unknown) (no date) (unknown) (unknown) shuffling gait x6 weeks. (units unknown) (unknown) (unknown) (no date) (unknown) (unknown) significantly hypovolemic. (units unknown) (unknown) (unknown) (no date) (unknown) (unknown) small hypoattenuating lesions throughout the spleen are also nonspecific and the (units unknown) (unknown) (unknown) (no date) (unknown) (unknown) tachycardia with heart rates 111-154, and tachypneic respiratory rate in the (units unknown) (unknown) (unknown) (no date) (unknown) (unknown) to moderate right greater than left pulmonary effusion. SOFA:2 patient admitted (units unknown) (unknown) (unknown) (no date) (unknown) (unknown) today; this time is exclusive of procedural time. (units unknown) (unknown) (unknown) (no date) (unknown) (unknown) transaminitis, UTI, encephalopathy. (units unknown) (unknown) (unknown) (no date) (unknown) (unknown) unsure if this is the patient's baseline. Due to cognitive impairment unable to (units unknown) (unknown) (unknown) (no date) (unknown) (unknown) ventricular paced rhythm rate 72, abnormal. COVID, influenza a/B/RSV negative. (units unknown) (unknown) (unknown) (no date) (unknown) (unknown) verify medications in the morning (units unknown) (unknown) (unknown) (no date) (unknown) (unknown) was brought into the ED by his . In ED patient demonstrated escalating (units unknown) (unknown) (unknown) (no date) (unknown) (unknown) wheezes, rhonchi, or rales. (units unknown) (unknown) Result panel 223 (unknown) (no date) (unknown) (unknown) (no value) (units unknown) (unknown) (unknown) (no date) (unknown) (unknown) (Flovent HFA) (units unknown) (unknown) (unknown) (no date) (unknown) (unknown) (past 8 hours): (units unknown) (unknown) (unknown) (no date) (unknown) (unknown) - CXR ?Possible mild right and retrocardiac opacities (units unknown) (unknown) (unknown) (no date) (unknown) (unknown) -ABD/Pelvis CT:?Multiple ill-defined hypoattenuating mass lesions throughout the (units unknown) (unknown) (unknown) (no date) (unknown) (unknown) -BLD/Urine culture pending (units unknown) (unknown) (unknown) (no date) (unknown) (unknown) -Chest CT demonstrated bibasilar infiltrates versus inflammatory pulmonary (units unknown) (unknown) (unknown) (no date) (unknown) (unknown) -[id number] cc/HR (units unknown) (unknown) (unknown) (no date) (unknown) (unknown) -ED:heart rates 111-154, and tachypneic respiratory rate in the 20s. (1L bolus) (units unknown) (unknown) (unknown) (no date) (unknown) (unknown) -EKG atrial sensed ventricular paced rhythm rate 72, abnormal. (units unknown) (unknown) (unknown) (no date) (unknown) (unknown) -GGT 516 -Ordered RT upper Quad U/S tomorrow -will order MRCP if bile ducts are (units unknown) (unknown) (unknown) (no date) (unknown) (unknown) -Monitor electrolytes (units unknown) (unknown) (unknown) (no date) (unknown) (unknown) -Monitor for neurological changes, toxic metabolic encephalopathy (units unknown) (unknown) (unknown) (no date) (unknown) (unknown) -[id number] checks while NPO Only (units unknown) (unknown) (unknown) (no date) (unknown) (unknown) -Negative Fever, jaundice, right upper quadrant pain (units unknown) (unknown) (unknown) (no date) (unknown) (unknown) -Ordered: CRP, ESR, AFP, EPO, hepatitis panel-trend LFT's, and inflammatory (units unknown) (unknown) (unknown) (no date) (unknown) (unknown) -R Factor: 0.4 cholestatic injury- Ordered ABD/P CT (units unknown) (unknown) (unknown) (no date) (unknown) (unknown) -SOFA:2 (units unknown) (unknown) (unknown) (no date) (unknown) (unknown) -Sodium 135, BUN 34, glucose 146, calcium 8.1, magnesium 2.6, phosphorus 4.1, (units unknown) (unknown) (unknown) (no date) (unknown) (unknown) -Suspect dehydration-patient appears severely volume depleted (units unknown) (unknown) (unknown) (no date) (unknown) (unknown) -WBC neg, neut# 8200, initial lactate 4.3, repeat 2.7, procalcitonin 3.27, (units unknown) (unknown) (unknown) (no date) (unknown) (unknown) -admit BP 149/78, tachycardic heart rate 154, tachypneic R 29, O2 saturation 98% (units unknown) (unknown) (unknown) (no date) (unknown) (unknown) -as evidence by BMI 22.2-no records for comparison. (units unknown) (unknown) (unknown) (no date) (unknown) (unknown) -bladder scans as needed, postvoid residual >500cc -straight cath, 2nd postvoid (units unknown) (unknown) (unknown) (no date) (unknown) (unknown) -cachexia, weakness, malaise balance coordination issues, and concerns for (units unknown) (unknown) (unknown) (no date) (unknown) (unknown) -continue Eliquis (units unknown) (unknown) (unknown) (no date) (unknown) (unknown) -continue amlodipine-was unable to contact patient's , we will need to (units unknown) (unknown) (unknown) (no date) (unknown) (unknown) -dietary consult ordered to evaluate and implement steps to improve caloric (units unknown) (unknown) (unknown) (no date) (unknown) (unknown) -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 (units unknown) (unknown) (unknown) (no date) (unknown) (unknown) -initial troponin negative (trend x3), BNP 1430-patient has no edema and appear (units unknown) (unknown) (unknown) (no date) (unknown) (unknown) -initiated Zosyn (units unknown) (unknown) (unknown) (no date) (unknown) (unknown) -last echo in our records to of 2019 EF 55-60% (units unknown) (unknown) (unknown) (no date) (unknown) (unknown) -monitor for septic shock (units unknown) (unknown) (unknown) (no date) (unknown) (unknown) -monitor for starvation ketosis (units unknown) (unknown) (unknown) (no date) (unknown) (unknown) -ordered 1L bolus followed by [id number] cc/HR (units unknown) (unknown) (unknown) (no date) (unknown) (unknown) -pain and antiemetic management (units unknown) (unknown) (unknown) (no date) (unknown) (unknown) -patient's malnutrition places them at high risk for medical and surgical (units unknown) (unknown) (unknown) (no date) (unknown) (unknown) -phosphorus 4.1, bili 2.1, AST 61, ALT 63, alk-phos 428, total protein 5.8,PT (units unknown) (unknown) (unknown) (no date) (unknown) (unknown) -placed general surgery consult Dr. Turner (units unknown) (unknown) (unknown) (no date) (unknown) (unknown) -positive nitrate urinalysis culture pending, transaminitis (units unknown) (unknown) (unknown) (no date) (unknown) (unknown) -strict fall precautions, bed alarm, keep door open for observation (units unknown) (unknown) (unknown) (no date) (unknown) (unknown) -urinalysis brown, positive for protein, ketones, nitrites, bili 3+, leuks, RBC (units unknown) (unknown) (unknown) (no date) (unknown) (unknown) [id number] (units unknown) (unknown) (unknown) (no date) (unknown) (unknown) 06/16/22 06/16/22 06/16/22 (units unknown) (unknown) (unknown) (no date) (unknown) (unknown) 06/16/22 06/16/22 (units unknown) (unknown) (unknown) (no date) (unknown) (unknown) 06/16/22 12:35 (units unknown) (unknown) (unknown) (no date) (unknown) (unknown) 06/16/22 (units unknown) (unknown) (unknown) (no date) (unknown) (unknown) 1. Sepsis without septic shock, likely hepatobiliary origin, and UTI, acute, (units unknown) (unknown) (unknown) (no date) (unknown) (unknown) 10-30- Culture pending (units unknown) (unknown) (unknown) (no date) (unknown) (unknown) 12:35 12:35 12:35 (units unknown) (unknown) (unknown) (no date) (unknown) (unknown) 13:15 06/16/22 (units unknown) (unknown) (unknown) (no date) (unknown) (unknown) 13:30 (units unknown) (unknown) (unknown) (no date) (unknown) (unknown) 13:45 06/16/22 (units unknown) (unknown) (unknown) (no date) (unknown) (unknown) 13:46 06/16/22 (units unknown) (unknown) (unknown) (no date) (unknown) (unknown) 13:46 (units unknown) (unknown) (unknown) (no date) (unknown) (unknown) 14:00 06/16/22 (units unknown) (unknown) (unknown) (no date) (unknown) (unknown) 14:24 (units unknown) (unknown) (unknown) (no date) (unknown) (unknown) 14:30 06/16/22 (units unknown) (unknown) (unknown) (no date) (unknown) (unknown) 14:45 06/16/22 (units unknown) (unknown) (unknown) (no date) (unknown) (unknown) 15:00 (units unknown) (unknown) (unknown) (no date) (unknown) (unknown) 15:15 06/16/22 (units unknown) (unknown) (unknown) (no date) (unknown) (unknown) 15:30 06/16/22 (units unknown) (unknown) (unknown) (no date) (unknown) (unknown) 15:30 17:55 (units unknown) (unknown) (unknown) (no date) (unknown) (unknown) 15:34 06/16/22 (units unknown) (unknown) (unknown) (no date) (unknown) (unknown) 15:34 (units unknown) (unknown) (unknown) (no date) (unknown) (unknown) 15:45 06/16/22 (units unknown) (unknown) (unknown) (no date) (unknown) (unknown) 15:45 (units unknown) (unknown) (unknown) (no date) (unknown) (unknown) 16:00 06/16/22 (units unknown) (unknown) (unknown) (no date) (unknown) (unknown) 16:15 06/16/22 (units unknown) (unknown) (unknown) (no date) (unknown) (unknown) 16:15 (units unknown) (unknown) (unknown) (no date) (unknown) (unknown) 16:30 06/16/22 (units unknown) (unknown) (unknown) (no date) (unknown) (unknown) 16:31 06/16/22 (units unknown) (unknown) (unknown) (no date) (unknown) (unknown) 16:31 (units unknown) (unknown) (unknown) (no date) (unknown) (unknown) 16:45 06/16/22 (units unknown) (unknown) (unknown) (no date) (unknown) (unknown) 17.6, INR 1.5, PTT 38 (units unknown) (unknown) (unknown) (no date) (unknown) (unknown) 17.6, INR 1.5, PTT 38. Sodium 135, BUN 34, glucose 146, calcium 8.1, magnesium (units unknown) (unknown) (unknown) (no date) (unknown) (unknown) 17:00 06/16/22 (units unknown) (unknown) (unknown) (no date) (unknown) (unknown) 17:00 (units unknown) (unknown) (unknown) (no date) (unknown) (unknown) 17:15 06/16/22 (units unknown) (unknown) (unknown) (no date) (unknown) (unknown) 17:15 (units unknown) (unknown) (unknown) (no date) (unknown) (unknown) 17:30 06/16/22 (units unknown) (unknown) (unknown) (no date) (unknown) (unknown) 17:45 (units unknown) (unknown) (unknown) (no date) (unknown) (unknown) 17:46 06/16/22 (units unknown) (unknown) (unknown) (no date) (unknown) (unknown) 17:59 (units unknown) (unknown) (unknown) (no date) (unknown) (unknown) 18:00 06/16/22 (units unknown) (unknown) (unknown) (no date) (unknown) (unknown) 18:01 06/16/22 (units unknown) (unknown) (unknown) (no date) (unknown) (unknown) 18:15 06/16/22 (units unknown) (unknown) (unknown) (no date) (unknown) (unknown) 18:15 (units unknown) (unknown) (unknown) (no date) (unknown) (unknown) 18:30 06/16/22 (units unknown) (unknown) (unknown) (no date) (unknown) (unknown) 18:30 (units unknown) (unknown) (unknown) (no date) (unknown) (unknown) 18:45 06/16/22 (units unknown) (unknown) (unknown) (no date) (unknown) (unknown) 19:00 06/16/22 (units unknown) (unknown) (unknown) (no date) (unknown) (unknown) 19:00 (units unknown) (unknown) (unknown) (no date) (unknown) (unknown) 19:15 06/16/22 (units unknown) (unknown) (unknown) (no date) (unknown) (unknown) 19:15 (units unknown) (unknown) (unknown) (no date) (unknown) (unknown) 19:30 06/16/22 (units unknown) (unknown) (unknown) (no date) (unknown) (unknown) 19:45 06/16/22 (units unknown) (unknown) (unknown) (no date) (unknown) (unknown) 19:45 (units unknown) (unknown) (unknown) (no date) (unknown) (unknown) 2. Transaminitis, with elevated alkaline phosphate, acute, present on admission (units unknown) (unknown) (unknown) (no date) (unknown) (unknown) 2.6, phosphorus 4.1, bili 2.1, AST 61, ALT 63, alk-phos 428, total protein 5.8, (units unknown) (unknown) (unknown) (no date) (unknown) (unknown) 20:00 06/16/22 (units unknown) (unknown) (unknown) (no date) (unknown) (unknown) 20:00 (units unknown) (unknown) (unknown) (no date) (unknown) (unknown) 20:15 06/16/22 (units unknown) (unknown) (unknown) (no date) (unknown) (unknown) 20:30 06/16/22 (units unknown) (unknown) (unknown) (no date) (unknown) (unknown) 20:30 (units unknown) (unknown) (unknown) (no date) (unknown) (unknown) 20:45 06/16/22 (units unknown) (unknown) (unknown) (no date) (unknown) (unknown) 20:46 06/16/22 (units unknown) (unknown) (unknown) (no date) (unknown) (unknown) 20:46 (units unknown) (unknown) (unknown) (no date) (unknown) (unknown) 20:55 (units unknown) (unknown) (unknown) (no date) (unknown) (unknown) 20s. During admit interview patient is pleasantly confused orientated to self (units unknown) (unknown) (unknown) (no date) (unknown) (unknown) 3. UTI, acute, present on admission (units unknown) (unknown) (unknown) (no date) (unknown) (unknown) 4 mos (units unknown) (unknown) (unknown) (no date) (unknown) (unknown) 4. Encephalopathy/cogn itive impairment, unclear if this is chronic or acute, (units unknown) (unknown) (unknown) (no date) (unknown) (unknown) 5. Essential hypertension, chronic, present on admission (units unknown) (unknown) (unknown) (no date) (unknown) (unknown) 6. Atrial fibrillation, with pacemaker, on chronic Eliquis, acute on chronic, (units unknown) (unknown) (unknown) (no date) (unknown) (unknown) 7. Malnutrition, mild, acute on chronic, present on admission (units unknown) (unknown) (unknown) (no date) (unknown) (unknown) 98% on room air. Patient did get up and ambulate to the restroom w/MA without (units unknown) (unknown) (unknown) (no date) (unknown) (unknown) A1C 5.8% (units unknown) (unknown) (unknown) (no date) (unknown) (unknown) ALT 63 H (units unknown) (unknown) (unknown) (no date) (unknown) (unknown) ALT (units unknown) (unknown) (unknown) (no date) (unknown) (unknown) APTT 38 H (units unknown) (unknown) (unknown) (no date) (unknown) (unknown) APTT (units unknown) (unknown) (unknown) (no date) (unknown) (unknown) AST 61 H (units unknown) (unknown) (unknown) (no date) (unknown) (unknown) AST (units unknown) (unknown) (unknown) (no date) (unknown) (unknown) Abdomen: Soft nontender, negative for organomegaly, or masses. Bowel sounds (units unknown) (unknown) (unknown) (no date) (unknown) (unknown) Age/Sex: 86 / M (units unknown) (unknown) (unknown) (no date) (unknown) (unknown) Albumin 3.1 L (units unknown) (unknown) (unknown) (no date) (unknown) (unknown) Albumin (units unknown) (unknown) (unknown) (no date) (unknown) (unknown) Albumin/Globulin Ratio 1.1 (units unknown) (unknown) (unknown) (no date) (unknown) (unknown) Albumin/Globulin Ratio (units unknown) (unknown) (unknown) (no date) (unknown) (unknown) Alkaline Phosphatase 428 H (units unknown) (unknown) (unknown) (no date) (unknown) (unknown) Alkaline Phosphatase (units unknown) (unknown) (unknown) (no date) (unknown) (unknown) Allergies (units unknown) (unknown) (unknown) (no date) (unknown) (unknown) Allergy/AdvReac Type Severity Reaction Status Date / Time (units unknown) (unknown) (unknown) (no date) (unknown) (unknown) Assessment + Plan narrative: (units unknown) (unknown) (unknown) (no date) (unknown) (unknown) Assessment + Plan (units unknown) (unknown) (unknown) (no date) (unknown) (unknown) Asthma (units unknown) (unknown) (unknown) (no date) (unknown) (unknown) Atrial fibrillation (units unknown) (unknown) (unknown) (no date) (unknown) (unknown) BUN 34 H (units unknown) (unknown) (unknown) (no date) (unknown) (unknown) BUN (units unknown) (unknown) (unknown) (no date) (unknown) (unknown) BUN/Creatinine Ratio 34.3 H (units unknown) (unknown) (unknown) (no date) (unknown) (unknown) BUN/Creatinine Ratio (units unknown) (unknown) (unknown) (no date) (unknown) (unknown) Baso # (Auto) 100 (units unknown) (unknown) (unknown) (no date) (unknown) (unknown) Baso # (Auto) (units unknown) (unknown) (unknown) (no date) (unknown) (unknown) Baso % (Auto) 0.8 (units unknown) (unknown) (unknown) (no date) (unknown) (unknown) Baso % (Auto) (units unknown) (unknown) (unknown) (no date) (unknown) (unknown) Blood Pressure 141/57 H (units unknown) (unknown) (unknown) (no date) (unknown) (unknown) Blood Pressure 141/73 H (units unknown) (unknown) (unknown) (no date) (unknown) (unknown) Blood Pressure 142/65 H 156/70 H (units unknown) (unknown) (unknown) (no date) (unknown) (unknown) Blood Pressure 142/67 H (units unknown) (unknown) (unknown) (no date) (unknown) (unknown) Blood Pressure 143/67 H (units unknown) (unknown) (unknown) (no date) (unknown) (unknown) Blood Pressure 145/69 H (units unknown) (unknown) (unknown) (no date) (unknown) (unknown) Blood Pressure 146/69 H (units unknown) (unknown) (unknown) (no date) (unknown) (unknown) Blood Pressure 147/71 H 150/72 H (units unknown) (unknown) (unknown) (no date) (unknown) (unknown) Blood Pressure 149/68 H 130/59 L (units unknown) (unknown) (unknown) (no date) (unknown) (unknown) Blood Pressure 149/78 H 155/70 H (units unknown) (unknown) (unknown) (no date) (unknown) (unknown) Blood Pressure 150/73 H (units unknown) (unknown) (unknown) (no date) (unknown) (unknown) Blood Pressure 151/72 H (units unknown) (unknown) (unknown) (no date) (unknown) (unknown) Blood Pressure 154/73 H (units unknown) (unknown) (unknown) (no date) (unknown) (unknown) Blood Pressure 156/72 H 151/72 H (units unknown) (unknown) (unknown) (no date) (unknown) (unknown) Blood Pressure 162/114 H (units unknown) (unknown) (unknown) (no date) (unknown) (unknown) Blood Pressure 164/94 H 164/96 H (units unknown) (unknown) (unknown) (no date) (unknown) (unknown) Blood Pressure 179/74 H 179/94 H (units unknown) (unknown) (unknown) (no date) (unknown) (unknown) Blood Pressure 186/112 H 169/75 H (units unknown) (unknown) (unknown) (no date) (unknown) (unknown) Blood Pressure (units unknown) (unknown) (unknown) (no date) (unknown) (unknown) CK-MB (CK-2) Rel Index TNP (units unknown) (unknown) (unknown) (no date) (unknown) (unknown) CK-MB (CK-2) Rel Index (units unknown) (unknown) (unknown) (no date) (unknown) (unknown) CK-MB (CK-2) TNP (units unknown) (unknown) (unknown) (no date) (unknown) (unknown) CK-MB (CK-2) (units unknown) (unknown) (unknown) (no date) (unknown) (unknown) COVID PCR: Negative (units unknown) (unknown) (unknown) (no date) (unknown) (unknown) COVID, influenza a/B/RSV negative (units unknown) (unknown) (unknown) (no date) (unknown) (unknown) Calcium 8.1 L (units unknown) (unknown) (unknown) (no date) (unknown) (unknown) Calcium (units unknown) (unknown) (unknown) (no date) (unknown) (unknown) Carbon Dioxide 28 (units unknown) (unknown) (unknown) (no date) (unknown) (unknown) Carbon Dioxide (units unknown) (unknown) (unknown) (no date) (unknown) (unknown) Cardio: regular rate and rhythm without murmur, rubs, or gallops, no carotid (units unknown) (unknown) (unknown) (no date) (unknown) (unknown) Chest: Equal expansion, positive kyphoscoliosis, no nasal flaring, retractions, (units unknown) (unknown) (unknown) (no date) (unknown) (unknown) Chief complaint: Pain near pacemaker (units unknown) (unknown) (unknown) (no date) (unknown) (unknown) Chloride 99 (units unknown) (unknown) (unknown) (no date) (unknown) (unknown) Chloride (units unknown) (unknown) (unknown) (no date) (unknown) (unknown) Chronic anticoagulation (units unknown) (unknown) (unknown) (no date) (unknown) (unknown) Code status:Full (units unknown) (unknown) (unknown) (no date) (unknown) (unknown) Creatinine 0.99 (units unknown) (unknown) (unknown) (no date) (unknown) (unknown) Creatinine (units unknown) (unknown) (unknown) (no date) (unknown) (unknown) Critical Care time: (units unknown) (unknown) (unknown) (no date) (unknown) (unknown) : 1935 Acct:[id number] (units unknown) (unknown) (unknown) (no date) (unknown) (unknown) DVT/VTE prophylaxis: Eliquis, and SCDs (units unknown) (unknown) (unknown) (no date) (unknown) (unknown) Date Patient Seen: 06/16/22 (units unknown) (unknown) (unknown) (no date) (unknown) (unknown) Date of Service: 06/16/22 (units unknown) (unknown) (unknown) (no date) (unknown) (unknown) Disposition: Patient admitted to acute care for evaluation and treatment of (units unknown) (unknown) (unknown) (no date) (unknown) (unknown) Yoseph Cardoso is a 86-year-old male with a history of atrial fibrillation, with (units unknown) (unknown) (unknown) (no date) (unknown) (unknown) Due to patient's cognitive impairment/encephal opathy unable to obtain HPI, ROS, (units unknown) (unknown) (unknown) (no date) (unknown) (unknown) Environment (units unknown) (unknown) (unknown) (no date) (unknown) (unknown) Eos # (Auto) 0 (units unknown) (unknown) (unknown) (no date) (unknown) (unknown) Eos # (Auto) (units unknown) (unknown) (unknown) (no date) (unknown) (unknown) Eos % (Auto) 0.1 L (units unknown) (unknown) (unknown) (no date) (unknown) (unknown) Eos % (Auto) (units unknown) (unknown) (unknown) (no date) (unknown) (unknown) Essential hypertension (units unknown) (unknown) (unknown) (no date) (unknown) (unknown) Estimated GFR > 60 (units unknown) (unknown) (unknown) (no date) (unknown) (unknown) Estimated GFR (units unknown) (unknown) (unknown) (no date) (unknown) (unknown) Exam Narrative: (units unknown) (unknown) (unknown) (no date) (unknown) (unknown) Exam (units unknown) (unknown) (unknown) (no date) (unknown) (unknown) Family + Social History (units unknown) (unknown) (unknown) (no date) (unknown) (unknown) Family History (units unknown) (unknown) (unknown) (no date) (unknown) (unknown) Father Diabetes mellitus (units unknown) (unknown) (unknown) (no date) (unknown) (unknown) Feels Safe in Current Yes, patient lives at home with his . (units unknown) (unknown) (unknown) (no date) (unknown) (unknown) Full range of motion intact radial and pedal pulses are normal. (units unknown) (unknown) (unknown) (no date) (unknown) (unknown) General: Patient is a pleasantly confused cachectic, frail, elderly male, in no (units unknown) (unknown) (unknown) (no date) (unknown) (unknown) Globulin 2.7 (units unknown) (unknown) (unknown) (no date) (unknown) (unknown) Globulin (units unknown) (unknown) (unknown) (no date) (unknown) (unknown) Glucose 146 H (units unknown) (unknown) (unknown) (no date) (unknown) (unknown) Glucose (units unknown) (unknown) (unknown) (no date) (unknown) (unknown) HEENT: Normocephalic, atraumatic, extraocular muscles intact, oral pharynx is (units unknown) (unknown) (unknown) (no date) (unknown) (unknown) Hct 46.6 (units unknown) (unknown) (unknown) (no date) (unknown) (unknown) Hct (units unknown) (unknown) (unknown) (no date) (unknown) (unknown) Head CT negative. CXR ?Possible mild right and retrocardiac opacities Chest CT (units unknown) (unknown) (unknown) (no date) (unknown) (unknown) Hgb 15.4 (units unknown) (unknown) (unknown) (no date) (unknown) (unknown) Hgb (units unknown) (unknown) (unknown) (no date) (unknown) (unknown) History + Physical Report (units unknown) (unknown) (unknown) (no date) (unknown) (unknown) History of Present Illness (units unknown) (unknown) (unknown) (no date) (unknown) (unknown) History of melanoma (units unknown) (unknown) (unknown) (no date) (unknown) (unknown) History of permanent cardiac pacemaker placement (units unknown) (unknown) (unknown) (no date) (unknown) (unknown) History (units unknown) (unknown) (unknown) (no date) (unknown) (unknown) Home Medications and Allergies (units unknown) (unknown) (unknown) (no date) (unknown) (unknown) Home Medications (units unknown) (unknown) (unknown) (no date) (unknown) (unknown) I confirmed that the patient's advanced care plan is present, Code status is (units unknown) (unknown) (unknown) (no date) (unknown) (unknown) I have personally reviewed patient's chart notes from PCP, specialists, (units unknown) (unknown) (unknown) (no date) (unknown) (unknown) I have utilized all available immediate resources to obtain, update, or review (units unknown) (unknown) (unknown) (no date) (unknown) (unknown) I spent a total of [] minutes of critical care time on this patient's care (units unknown) (unknown) (unknown) (no date) (unknown) (unknown) INR 1.5 H (units unknown) (unknown) (unknown) (no date) (unknown) (unknown) INR (units unknown) (unknown) (unknown) (no date) (unknown) (unknown) Influenza A (RT-PCR) Flu a negative (units unknown) (unknown) (unknown) (no date) (unknown) (unknown) Influenza A (RT-PCR) (units unknown) (unknown) (unknown) (no date) (unknown) (unknown) Influenza B (RT-PCR) Flu b negative (units unknown) (unknown) (unknown) (no date) (unknown) (unknown) Influenza B (RT-PCR) (units unknown) (unknown) (unknown) (no date) (unknown) (unknown) [address] [address] (units unknown) (unknown) (unknown) (no date) (unknown) (unknown) Laboratory Results - last 24 hr (units unknown) (unknown) (unknown) (no date) (unknown) (unknown) Labs (units unknown) (unknown) (unknown) (no date) (unknown) (unknown) Labs: (units unknown) (unknown) (unknown) (no date) (unknown) (unknown) Lactate 2.7 H (units unknown) (unknown) (unknown) (no date) (unknown) (unknown) Lactate 4.3 H* (units unknown) (unknown) (unknown) (no date) (unknown) (unknown) Lactate (units unknown) (unknown) (unknown) (no date) (unknown) (unknown) Lipase 45 (units unknown) (unknown) (unknown) (no date) (unknown) (unknown) Lipase (units unknown) (unknown) (unknown) (no date) (unknown) (unknown) Lungs: Auscultation of all lung troy are clear without adventitious sounds, (units unknown) (unknown) (unknown) (no date) (unknown) (unknown) Lymph # (Auto) 400 L (units unknown) (unknown) (unknown) (no date) (unknown) (unknown) Lymph # (Auto) (units unknown) (unknown) (unknown) (no date) (unknown) (unknown) Lymph % (Auto) 4.6 L (units unknown) (unknown) (unknown) (no date) (unknown) (unknown) Lymph % (Auto) (units unknown) (unknown) (unknown) (no date) (unknown) (unknown) MCH 30.4 (units unknown) (unknown) (unknown) (no date) (unknown) (unknown) MCH (units unknown) (unknown) (unknown) (no date) (unknown) (unknown) MCHC 33.0 (units unknown) (unknown) (unknown) (no date) (unknown) (unknown) MCHC (units unknown) (unknown) (unknown) (no date) (unknown) (unknown) MCV 92.4 (units unknown) (unknown) (unknown) (no date) (unknown) (unknown) MCV (units unknown) (unknown) (unknown) (no date) (unknown) (unknown) Magnesium 2.6 H (units unknown) (unknown) (unknown) (no date) (unknown) (unknown) Magnesium (units unknown) (unknown) (unknown) (no date) (unknown) (unknown) Medical History (Updated 06/17/22 @ 00:55 by JOSE Crystal) (units unknown) (unknown) (unknown) (no date) (unknown) (unknown) Medication Instructions Recorded Confirmed Type (units unknown) (unknown) (unknown) (no date) (unknown) (unknown) Meds (units unknown) (unknown) (unknown) (no date) (unknown) (unknown) [place] # (Auto) 900 (units unknown) (unknown) (unknown) (no date) (unknown) (unknown) [place] # (Auto) (units unknown) (unknown) (unknown) (no date) (unknown) (unknown) [place] % (Auto) 9.4 (units unknown) (unknown) (unknown) (no date) (unknown) (unknown) [place] % (Auto) (units unknown) (unknown) (unknown) (no date) (unknown) (unknown) Mother No problems noted. (units unknown) (unknown) (unknown) (no date) (unknown) (unknown) Musculoskeletal: Diffuse but equal throughout all extremity muscle wasting, no (units unknown) (unknown) (unknown) (no date) (unknown) (unknown) NT-Pro-B Natriuret Pep 1430 H (units unknown) (unknown) (unknown) (no date) (unknown) (unknown) NT-Pro-B Natriuret Pep (units unknown) (unknown) (unknown) (no date) (unknown) (unknown) Narrative (units unknown) (unknown) (unknown) (no date) (unknown) (unknown) Narrative: (units unknown) (unknown) (unknown) (no date) (unknown) (unknown) Negative for JVD (units unknown) (unknown) (unknown) (no date) (unknown) (unknown) Neuro: Alert and orientated x2 Person + Place , moves all extremities, (units unknown) (unknown) (unknown) (no date) (unknown) (unknown) Neut # (Auto) 8200 H (units unknown) (unknown) (unknown) (no date) (unknown) (unknown) Neut # (Auto) (units unknown) (unknown) (unknown) (no date) (unknown) (unknown) Neut % (Auto) 85.1 H (units unknown) (unknown) (unknown) (no date) (unknown) (unknown) Neut % (Auto) (units unknown) (unknown) (unknown) (no date) (unknown) (unknown) Objective (units unknown) (unknown) (unknown) (no date) (unknown) (unknown) Oxygen Delivery Method Room Air (units unknown) (unknown) (unknown) (no date) (unknown) (unknown) Oxygen Delivery Method (units unknown) (unknown) (unknown) (no date) (unknown) (unknown) PT 17.6 H (units unknown) (unknown) (unknown) (no date) (unknown) (unknown) PT (units unknown) (unknown) (unknown) (no date) (unknown) (unknown) Pacemaker (units unknown) (unknown) (unknown) (no date) (unknown) (unknown) Patient History (units unknown) (unknown) (unknown) (no date) (unknown) (unknown) Patient: Yoseph Cardoso MR#: [id number] (units unknown) (unknown) (unknown) (no date) (unknown) (unknown) Phosphorus 4.1 H (units unknown) (unknown) (unknown) (no date) (unknown) (unknown) Phosphorus (units unknown) (unknown) (unknown) (no date) (unknown) (unknown) Plt Count 222 (units unknown) (unknown) (unknown) (no date) (unknown) (unknown) Plt Count (units unknown) (unknown) (unknown) (no date) (unknown) (unknown) Potassium 4.8 (units unknown) (unknown) (unknown) (no date) (unknown) (unknown) Potassium (units unknown) (unknown) (unknown) (no date) (unknown) (unknown) Procalcitonin 3.27 H (units unknown) (unknown) (unknown) (no date) (unknown) (unknown) Procalcitonin (units unknown) (unknown) (unknown) (no date) (unknown) (unknown) Provider: Hawa Michael[facility] (units unknown) (unknown) (unknown) (no date) (unknown) (unknown) Psych: Patient has a well-kept appearance, pleasant affect, mental status (units unknown) (unknown) (unknown) (no date) (unknown) (unknown) Pulse Oximetry 93 100 (units unknown) (unknown) (unknown) (no date) (unknown) (unknown) Pulse Oximetry 94 96 (units unknown) (unknown) (unknown) (no date) (unknown) (unknown) Pulse Oximetry 95 (units unknown) (unknown) (unknown) (no date) (unknown) (unknown) Pulse Oximetry 96 91 (units unknown) (unknown) (unknown) (no date) (unknown) (unknown) Pulse Oximetry 96 99 (units unknown) (unknown) (unknown) (no date) (unknown) (unknown) Pulse Oximetry 96 (units unknown) (unknown) (unknown) (no date) (unknown) (unknown) Pulse Oximetry 97 96 97 (units unknown) (unknown) (unknown) (no date) (unknown) (unknown) Pulse Oximetry 97 97 98 (units unknown) (unknown) (unknown) (no date) (unknown) (unknown) Pulse Oximetry 97 97 (units unknown) (unknown) (unknown) (no date) (unknown) (unknown) Pulse Oximetry 97 (units unknown) (unknown) (unknown) (no date) (unknown) (unknown) Pulse Oximetry 98 97 (units unknown) (unknown) (unknown) (no date) (unknown) (unknown) Pulse Oximetry 98 (units unknown) (unknown) (unknown) (no date) (unknown) (unknown) Pulse Oximetry (units unknown) (unknown) (unknown) (no date) (unknown) (unknown) Pulse Rate 111 H (units unknown) (unknown) (unknown) (no date) (unknown) (unknown) Pulse Rate 114 H 118 H (units unknown) (unknown) (unknown) (no date) (unknown) (unknown) Pulse Rate 154 H (units unknown) (unknown) (unknown) (no date) (unknown) (unknown) Pulse Rate 72 66 (units unknown) (unknown) (unknown) (no date) (unknown) (unknown) Pulse Rate 72 71 (units unknown) (unknown) (unknown) (no date) (unknown) (unknown) Pulse Rate 72 74 (units unknown) (unknown) (unknown) (no date) (unknown) (unknown) Pulse Rate 72 (units unknown) (unknown) (unknown) (no date) (unknown) (unknown) Pulse Rate 73 74 (units unknown) (unknown) (unknown) (no date) (unknown) (unknown) Pulse Rate 73 87 98 H (units unknown) (unknown) (unknown) (no date) (unknown) (unknown) Pulse Rate 73 (units unknown) (unknown) (unknown) (no date) (unknown) (unknown) Pulse Rate 74 104 H 106 H (units unknown) (unknown) (unknown) (no date) (unknown) (unknown) Pulse Rate 75 116 H (units unknown) (unknown) (unknown) (no date) (unknown) (unknown) Pulse Rate 75 70 (units unknown) (unknown) (unknown) (no date) (unknown) (unknown) Pulse Rate 75 74 74 (units unknown) (unknown) (unknown) (no date) (unknown) (unknown) Pulse Rate 75 (units unknown) (unknown) (unknown) (no date) (unknown) (unknown) Pulse Rate 76 (units unknown) (unknown) (unknown) (no date) (unknown) (unknown) Pulse Rate 78 75 (units unknown) (unknown) (unknown) (no date) (unknown) (unknown) Pulse Rate 84 77 (units unknown) (unknown) (unknown) (no date) (unknown) (unknown) Pulse Rate 86 72 (units unknown) (unknown) (unknown) (no date) (unknown) (unknown) Pulse Rate 98 H (units unknown) (unknown) (unknown) (no date) (unknown) (unknown) RBC 5.05 (units unknown) (unknown) (unknown) (no date) (unknown) (unknown) RBC (units unknown) (unknown) (unknown) (no date) (unknown) (unknown) RDW 14.4 (units unknown) (unknown) (unknown) (no date) (unknown) (unknown) RDW (units unknown) (unknown) (unknown) (no date) (unknown) (unknown) RSV (PCR) Negative (units unknown) (unknown) (unknown) (no date) (unknown) (unknown) RSV (PCR) (units unknown) (unknown) (unknown) (no date) (unknown) (unknown) Respiratory Rate 12 25 H (units unknown) (unknown) (unknown) (no date) (unknown) (unknown) Respiratory Rate 13 26 H (units unknown) (unknown) (unknown) (no date) (unknown) (unknown) Respiratory Rate 16 20 (units unknown) (unknown) (unknown) (no date) (unknown) (unknown) Respiratory Rate 17 26 H (units unknown) (unknown) (unknown) (no date) (unknown) (unknown) Respiratory Rate 17 (units unknown) (unknown) (unknown) (no date) (unknown) (unknown) Respiratory Rate 18 32 H (units unknown) (unknown) (unknown) (no date) (unknown) (unknown) Respiratory Rate 18 (units unknown) (unknown) (unknown) (no date) (unknown) (unknown) Respiratory Rate 19 18 (units unknown) (unknown) (unknown) (no date) (unknown) (unknown) Respiratory Rate 19 34 H 39 H (units unknown) (unknown) (unknown) (no date) (unknown) (unknown) Respiratory Rate 19 (units unknown) (unknown) (unknown) (no date) (unknown) (unknown) Respiratory Rate 20 (units unknown) (unknown) (unknown) (no date) (unknown) (unknown) Respiratory Rate 22 20 (units unknown) (unknown) (unknown) (no date) (unknown) (unknown) Respiratory Rate 23 17 16 (units unknown) (unknown) (unknown) (no date) (unknown) (unknown) Respiratory Rate 23 18 (units unknown) (unknown) (unknown) (no date) (unknown) (unknown) Respiratory Rate 24 19 (units unknown) (unknown) (unknown) (no date) (unknown) (unknown) Respiratory Rate 24 23 (units unknown) (unknown) (unknown) (no date) (unknown) (unknown) Respiratory Rate 27 H (units unknown) (unknown) (unknown) (no date) (unknown) (unknown) Respiratory Rate 29 H (units unknown) (unknown) (unknown) (no date) (unknown) (unknown) Respiratory Rate 30 H 24 (units unknown) (unknown) (unknown) (no date) (unknown) (unknown) Respiratory Rate (units unknown) (unknown) (unknown) (no date) (unknown) (unknown) Review of Systems (units unknown) (unknown) (unknown) (no date) (unknown) (unknown) SARS-CoV-2 (PCR) Negative (units unknown) (unknown) (unknown) (no date) (unknown) (unknown) SARS-CoV-2 (PCR) (units unknown) (unknown) (unknown) (no date) (unknown) (unknown) Safety + Behavioral: (units unknown) (unknown) (unknown) (no date) (unknown) (unknown) Signed By: (units unknown) (unknown) (unknown) (no date) (unknown) (unknown) Skin: Warm Very dry, poor turgor, appears significantly dehydrated and wasting (units unknown) (unknown) (unknown) (no date) (unknown) (unknown) Smoking Status never (units unknown) (unknown) (unknown) (no date) (unknown) (unknown) Sodium 135 L (units unknown) (unknown) (unknown) (no date) (unknown) (unknown) Sodium (units unknown) (unknown) (unknown) (no date) (unknown) (unknown) Substance Use Type does not use (units unknown) (unknown) (unknown) (no date) (unknown) (unknown) Surgical History (Updated 06/16/22 @ 21:27 by ALINE Crystal-) (units unknown) (unknown) (unknown) (no date) (unknown) (unknown) Surrogate decision maker: Aletha Cardoso (units unknown) (unknown) (unknown) (no date) (unknown) (unknown) Temperature 98.1 F (units unknown) (unknown) (unknown) (no date) (unknown) (unknown) Temperature (units unknown) (unknown) (unknown) (no date) (unknown) (unknown) This increases the difficulty in complexity of medical management and increases (units unknown) (unknown) (unknown) (no date) (unknown) (unknown) Time Patient Seen: 15:35 (units unknown) (unknown) (unknown) (no date) (unknown) (unknown) Time Spent With Patient (units unknown) (unknown) (unknown) (no date) (unknown) (unknown) Tobacco + Substance use: (units unknown) (unknown) (unknown) (no date) (unknown) (unknown) Total Bilirubin 2.1 H (units unknown) (unknown) (unknown) (no date) (unknown) (unknown) Total Bilirubin (units unknown) (unknown) (unknown) (no date) (unknown) (unknown) Total Creatine Kinase 53 L (units unknown) (unknown) (unknown) (no date) (unknown) (unknown) Total Creatine Kinase (units unknown) (unknown) (unknown) (no date) (unknown) (unknown) Total Protein 5.8 L (units unknown) (unknown) (unknown) (no date) (unknown) (unknown) Total Protein (units unknown) (unknown) (unknown) (no date) (unknown) (unknown) Troponin I < 0.012 (units unknown) (unknown) (unknown) (no date) (unknown) (unknown) Troponin I (units unknown) (unknown) (unknown) (no date) (unknown) (unknown) Upon admit BP 149/78, tachycardic heart rate 154, tachypneic R 29, O2 saturation (units unknown) (unknown) (unknown) (no date) (unknown) (unknown) Ur Bilirubin Confirm Positive H (units unknown) (unknown) (unknown) (no date) (unknown) (unknown) Ur Bilirubin Confirm (units unknown) (unknown) (unknown) (no date) (unknown) (unknown) Ur Culture Indicated? Specimen cultured (units unknown) (unknown) (unknown) (no date) (unknown) (unknown) Ur Culture Indicated? (units unknown) (unknown) (unknown) (no date) (unknown) (unknown) Ur Leukocyte Esterase Trace H (units unknown) (unknown) (unknown) (no date) (unknown) (unknown) Ur Leukocyte Esterase (units unknown) (unknown) (unknown) (no date) (unknown) (unknown) Ur Specific [place] 1.020 (units unknown) (unknown) (unknown) (no date) (unknown) (unknown) Ur Specific [place] (units unknown) (unknown) (unknown) (no date) (unknown) (unknown) Ur Squamous Epith Cells 1-5 /hpf (units unknown) (unknown) (unknown) (no date) (unknown) (unknown) Ur Squamous Epith Cells (units unknown) (unknown) (unknown) (no date) (unknown) (unknown) Urine Appearance Cloudy (units unknown) (unknown) (unknown) (no date) (unknown) (unknown) Urine Appearance (units unknown) (unknown) (unknown) (no date) (unknown) (unknown) Urine Bacteria None seen (units unknown) (unknown) (unknown) (no date) (unknown) (unknown) Urine Bacteria (units unknown) (unknown) (unknown) (no date) (unknown) (unknown) Urine Bilirubin 3+ H (units unknown) (unknown) (unknown) (no date) (unknown) (unknown) Urine Bilirubin (units unknown) (unknown) (unknown) (no date) (unknown) (unknown) Urine Color Brown (units unknown) (unknown) (unknown) (no date) (unknown) (unknown) Urine Color (units unknown) (unknown) (unknown) (no date) (unknown) (unknown) Urine Glucose (UA) Negative (units unknown) (unknown) (unknown) (no date) (unknown) (unknown) Urine Glucose (UA) (units unknown) (unknown) (unknown) (no date) (unknown) (unknown) Urine Ketones 1+ H (units unknown) (unknown) (unknown) (no date) (unknown) (unknown) Urine Ketones (units unknown) (unknown) (unknown) (no date) (unknown) (unknown) Urine Nitrate Positive H (units unknown) (unknown) (unknown) (no date) (unknown) (unknown) Urine Nitrate (units unknown) (unknown) (unknown) (no date) (unknown) (unknown) Urine Occult Blood Trace-intact (units unknown) (unknown) (unknown) (no date) (unknown) (unknown) Urine Occult Blood (units unknown) (unknown) (unknown) (no date) (unknown) (unknown) Urine Protein 1+ H (units unknown) (unknown) (unknown) (no date) (unknown) (unknown) Urine Protein (units unknown) (unknown) (unknown) (no date) (unknown) (unknown) Urine RBC 10-30/hpf H (units unknown) (unknown) (unknown) (no date) (unknown) (unknown) Urine RBC (units unknown) (unknown) (unknown) (no date) (unknown) (unknown) Urine Urobilinogen 1.0 (units unknown) (unknown) (unknown) (no date) (unknown) (unknown) Urine Urobilinogen (units unknown) (unknown) (unknown) (no date) (unknown) (unknown) Urine WBC 1-5/hpf (units unknown) (unknown) (unknown) (no date) (unknown) (unknown) Urine WBC (units unknown) (unknown) (unknown) (no date) (unknown) (unknown) Urine pH 6.5 (units unknown) (unknown) (unknown) (no date) (unknown) (unknown) Urine pH (units unknown) (unknown) (unknown) (no date) (unknown) (unknown) Vital Signs (units unknown) (unknown) (unknown) (no date) (unknown) (unknown) WBC 9.6 (units unknown) (unknown) (unknown) (no date) (unknown) (unknown) WBC (units unknown) (unknown) (unknown) (no date) (unknown) (unknown) [Embedded Image Not Available] (units unknown) (unknown) (unknown) (no date) (unknown) (unknown) [From [facility]] and feet x (units unknown) (unknown) (unknown) (no date) (unknown) (unknown) a recent 30 lb weight loss, and night sweats with a shuffling gait x6 weeks. He (units unknown) (unknown) (unknown) (no date) (unknown) (unknown) after. (units unknown) (unknown) (unknown) (no date) (unknown) (unknown) albumin 3.1, CK 53, initial troponin negative, BNP 1430. EKG atrial sensed (units unknown) (unknown) (unknown) (no date) (unknown) (unknown) alcohol intake frequency a few times a month (units unknown) (unknown) (unknown) (no date) (unknown) (unknown) amlodipine 5 mg tablet 5 mg PO DAILY 06/16/22 06/16/22 History (units unknown) (unknown) (unknown) (no date) (unknown) (unknown) and intact without rashes, ulcerations or petechiae. (units unknown) (unknown) (unknown) (no date) (unknown) (unknown) and place, but a very poor historian, stated that 'he came in today by himself (units unknown) (unknown) (unknown) (no date) (unknown) (unknown) and surgical interventions and increases the chances of poor outcomes such as (units unknown) (unknown) (unknown) (no date) (unknown) (unknown) antibiotics for treatment of UTI, further imaging studies and surgical consult (units unknown) (unknown) (unknown) (no date) (unknown) (unknown) apixaban 5 mg tablet (Eliquis) 5 mg PO BID blood thinner 06/16/22 06/16/22 (units unknown) (unknown) (unknown) (no date) (unknown) (unknown) appears is no distress at this time, no apparent jaundice, right upper quadrant (units unknown) (unknown) (unknown) (no date) (unknown) (unknown) are present in all 4 quadrants without guarding or rebound, no CVA tenderness. (units unknown) (unknown) (unknown) (no date) (unknown) (unknown) attitude thought context and judgment are inappropriate- confused, poor (units unknown) (unknown) (unknown) (no date) (unknown) (unknown) because he had black urine this morning'. He did not recall seeing Dr. Gillette, (units unknown) (unknown) (unknown) (no date) (unknown) (unknown) bruit, no cardiac pulsations present. (units unknown) (unknown) (unknown) (no date) (unknown) (unknown) cardiology's office due to deteriorating health concerns. patient admitted for (units unknown) (unknown) (unknown) (no date) (unknown) (unknown) cardiology's office due to his significant presentation of cachexia, weakness, (units unknown) (unknown) (unknown) (no date) (unknown) (unknown) care inpatient hospital management for sepsis, transaminitis, UTI. The patient (units unknown) (unknown) (unknown) (no date) (unknown) (unknown) clear and mucous membranes are dry. Neck is supple and symmetric, trachea is (units unknown) (unknown) (unknown) (no date) (unknown) (unknown) complications in relation to acute illness of sepsis, UTI, transaminase, high (units unknown) (unknown) (unknown) (no date) (unknown) (unknown) conjugate to of hands (units unknown) (unknown) (unknown) (no date) (unknown) (unknown) demonstrated bibasilar infiltrates versus inflammatory pulmonary opacities mild (units unknown) (unknown) (unknown) (no date) (unknown) (unknown) diagnostic imaging, and laboratory results. (units unknown) (unknown) (unknown) (no date) (unknown) (unknown) differential also includes neoplastic processes as well as infectious (units unknown) (unknown) (unknown) (no date) (unknown) (unknown) difficulty, struggles slightly with given directions. Patient has no WBC, but (units unknown) (unknown) (unknown) (no date) (unknown) (unknown) dilated. (units unknown) (unknown) (unknown) (no date) (unknown) (unknown) distress at this time. (units unknown) (unknown) (unknown) (no date) (unknown) (unknown) documented and/or surrogate decision maker is listed in the patient's medical (units unknown) (unknown) (unknown) (no date) (unknown) (unknown) etiologies such as micro abscesses (units unknown) (unknown) (unknown) (no date) (unknown) (unknown) fibrillation. (units unknown) (unknown) (unknown) (no date) (unknown) (unknown) fluticasone propionate 44 44 mcg inhalation DAILY 06/16/22 06/16/22 History (units unknown) (unknown) (unknown) (no date) (unknown) (unknown) for mild sepsis, transaminitis, UTI, encephalopathy. (units unknown) (unknown) (unknown) (no date) (unknown) (unknown) gabapentin 300 mg capsule 300 mg PO BID 06/16/22 06/16/22 History (units unknown) (unknown) (unknown) (no date) (unknown) (unknown) historian. (units unknown) (unknown) (unknown) (no date) (unknown) (unknown) intake and nutrition. (units unknown) (unknown) (unknown) (no date) (unknown) (unknown) is at much higher risk for medical and surgical complications because of his (units unknown) (unknown) (unknown) (no date) (unknown) (unknown) left shiftneut 8200, initial lactate 4.3, repeat 2.7, procalcitonin 3.27, PT (units unknown) (unknown) (unknown) (no date) (unknown) (unknown) liver, as well as multifocal hepatocellular carcinoma or infection. Numerous (units unknown) (unknown) (unknown) (no date) (unknown) (unknown) malaise, balance coordination issues, and concerns for neoplastic syndrome with (units unknown) (unknown) (unknown) (no date) (unknown) (unknown) malnutrition. These factors increase the difficulty and complexity of medical (units unknown) (unknown) (unknown) (no date) (unknown) (unknown) markers. (units unknown) (unknown) (unknown) (no date) (unknown) (unknown) mcg/actuation HFA aerosol inhaler (units unknown) (unknown) (unknown) (no date) (unknown) (unknown) medication reconciliation accurately. (units unknown) (unknown) (unknown) (no date) (unknown) (unknown) midline, no adenopathy, no thyroid enlargement, nontender, no masses palpated. (units unknown) (unknown) (unknown) (no date) (unknown) (unknown) mild sepsis, transaminitis, UTI, encephalopathy. This patient requires acute (units unknown) (unknown) (unknown) (no date) (unknown) (unknown) morbidity and mortality. 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 Patient denies any pain, and (units unknown) (unknown) (unknown) (no date) (unknown) (unknown) obvious deformity, crepitus, effusions, cyanosis, clubbing or edema present. (units unknown) (unknown) (unknown) (no date) (unknown) (unknown) on room air. (units unknown) (unknown) (unknown) (no date) (unknown) (unknown) opacities mild to moderate right greater than left pulmonary effusion. (units unknown) (unknown) (unknown) (no date) (unknown) (unknown) or labored breathing, mildly tachypneic. 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 Gillette (units unknown) (unknown) (unknown) (no date) (unknown) (unknown) pain, or fever. (units unknown) (unknown) (unknown) (no date) (unknown) (unknown) pneumococcal 7-valent AdvReac Intermediate swelling Verified 06/16/22 12:46 (units unknown) (unknown) (unknown) (no date) (unknown) (unknown) present on admission (units unknown) (unknown) (unknown) (no date) (unknown) (unknown) record. (units unknown) (unknown) (unknown) (no date) (unknown) (unknown) regarding transaminitis, monitoring intermittent uncontrolled atrial (units unknown) (unknown) (unknown) (no date) (unknown) (unknown) residual>500cc place Brice (units unknown) (unknown) (unknown) (no date) (unknown) (unknown) sensation to touch intact, no gross deficits noted of cranial nerves. (units unknown) (unknown) (unknown) (no date) (unknown) (unknown) sepsis UTI, and transaminitis, expected length of stay greater than 2 midnights. (units unknown) (unknown) (unknown) (no date) (unknown) (unknown) shuffling gait x6 weeks. (units unknown) (unknown) (unknown) (no date) (unknown) (unknown) significantly hypovolemic. (units unknown) (unknown) (unknown) (no date) (unknown) (unknown) small hypoattenuating lesions throughout the spleen are also nonspecific and the (units unknown) (unknown) (unknown) (no date) (unknown) (unknown) suspicion for metastatic disease/chronic illness atrial fibrillation and HTN. (units unknown) (unknown) (unknown) (no date) (unknown) (unknown) tachycardia with heart rates 111-154, and tachypneic respiratory rate in the (units unknown) (unknown) (unknown) (no date) (unknown) (unknown) the chances poor outcomes such as mortality and morbidity as well as impaired (units unknown) (unknown) (unknown) (no date) (unknown) (unknown) the patient's current medications. (units unknown) (unknown) (unknown) (no date) (unknown) (unknown) to moderate right greater than left pulmonary effusion. SOFA:2 patient admitted (units unknown) (unknown) (unknown) (no date) (unknown) (unknown) today; this time is exclusive of procedural time. (units unknown) (unknown) (unknown) (no date) (unknown) (unknown) unsure if this is the patient's baseline. Due to cognitive impairment unable to (units unknown) (unknown) (unknown) (no date) (unknown) (unknown) ventricular paced rhythm rate 72, abnormal. COVID, influenza a/B/RSV negative. (units unknown) (unknown) (unknown) (no date) (unknown) (unknown) verify medications in the morning (units unknown) (unknown) (unknown) (no date) (unknown) (unknown) was brought into the ED by his . In ED patient demonstrated escalating (units unknown) (unknown) (unknown) (no date) (unknown) (unknown) wheezes, rhonchi, or rales. (units unknown) (unknown) (unknown) (no date) (unknown) (unknown) wound healing, and immune suppression. (units unknown) (unknown) Result panel 224 (unknown) (no date) (unknown) (unknown) (no value) (units unknown) (unknown) (unknown) (no date) (unknown) (unknown) (Flovent HFA) (units unknown) (unknown) (unknown) (no date) (unknown) (unknown) (past 8 hours): (units unknown) (unknown) (unknown) (no date) (unknown) (unknown) -BLD/Urine culture pending (units unknown) (unknown) (unknown) (no date) (unknown) (unknown) -Chest CT demonstrated bibasilar infiltrates versus inflammatory pulmonary (units unknown) (unknown) (unknown) (no date) (unknown) (unknown) -[id number] cc/HR (units unknown) (unknown) (unknown) (no date) (unknown) (unknown) -ED:heart rates 111-154, and tachypneic respiratory rate in the 20s. (1L bolus) (units unknown) (unknown) (unknown) (no date) (unknown) (unknown) -EKG atrial sensed ventricular paced rhythm rate 72, abnormal. (units unknown) (unknown) (unknown) (no date) (unknown) (unknown) -GGT 516 -Ordered RT upper Quad U/S tomorrow -will order MRCP if bile ducts are (units unknown) (unknown) (unknown) (no date) (unknown) (unknown) -I personally reviewed imaging studies: CXR ?Possible mild right and (units unknown) (unknown) (unknown) (no date) (unknown) (unknown) -I personally reviewed: ABD/Pelvis CT:?Multiple ill-defined hypoattenuating mass (units unknown) (unknown) (unknown) (no date) (unknown) (unknown) -Monitor electrolytes (units unknown) (unknown) (unknown) (no date) (unknown) (unknown) -Monitor for neurological changes, toxic metabolic encephalopathy (units unknown) (unknown) (unknown) (no date) (unknown) (unknown) -[id number] checks while NPO Only (units unknown) (unknown) (unknown) (no date) (unknown) (unknown) -Negative Fever, jaundice, right upper quadrant pain (units unknown) (unknown) (unknown) (no date) (unknown) (unknown) -Ordered: CRP, ESR, AFP, EPO, hepatitis panel-trend LFT's, and inflammatory (units unknown) (unknown) (unknown) (no date) (unknown) (unknown) -R Factor: 0.4 cholestatic injury- Ordered ABD/P CT (units unknown) (unknown) (unknown) (no date) (unknown) (unknown) -SOFA:2 (units unknown) (unknown) (unknown) (no date) (unknown) (unknown) -Sodium 135, BUN 34, glucose 146, calcium 8.1, magnesium 2.6, phosphorus 4.1, (units unknown) (unknown) (unknown) (no date) (unknown) (unknown) -Suspect dehydration-patient appears severely volume depleted (units unknown) (unknown) (unknown) (no date) (unknown) (unknown) -WBC neg, neut# 8200, initial lactate 4.3, repeat 2.7, procalcitonin 3.27, (units unknown) (unknown) (unknown) (no date) (unknown) (unknown) -Weakness, deconditioning (units unknown) (unknown) (unknown) (no date) (unknown) (unknown) -admit BP 149/78, tachycardic heart rate 154, tachypneic R 29, O2 saturation 98% (units unknown) (unknown) (unknown) (no date) (unknown) (unknown) -as evidence by BMI 22.2-no records for comparison. 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: Concerned patient is not safe to return (units unknown) (unknown) (unknown) (no date) (unknown) (unknown) -continue Eliquis (units unknown) (unknown) (unknown) (no date) (unknown) (unknown) -continue amlodipine-was unable to contact patient's , we will need to (units unknown) (unknown) (unknown) (no date) (unknown) (unknown) -dietary consult ordered to evaluate and implement steps to improve caloric (units unknown) (unknown) (unknown) (no date) (unknown) (unknown) -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 (units unknown) (unknown) (unknown) (no date) (unknown) (unknown) -initial troponin negative (trend x3), BNP 1430-patient has no edema and appear (units unknown) (unknown) (unknown) (no date) (unknown) (unknown) -initiated Zosyn (units unknown) (unknown) (unknown) (no date) (unknown) (unknown) -last echo in our records to of 2019 EF 55-60% (units unknown) (unknown) (unknown) (no date) (unknown) (unknown) -monitor for septic shock (units unknown) (unknown) (unknown) (no date) (unknown) (unknown) -monitor for starvation ketosis (units unknown) (unknown) (unknown) (no date) (unknown) (unknown) -ordered 1L bolus followed by [id number] cc/HR (units unknown) (unknown) (unknown) (no date) (unknown) (unknown) -pain and antiemetic management (units unknown) (unknown) (unknown) (no date) (unknown) (unknown) -patient's malnutrition places them at high risk for medical and surgical (units unknown) (unknown) (unknown) (no date) (unknown) (unknown) -phosphorus 4.1, bili 2.1, AST 61, ALT 63, alk-phos 428, total protein 5.8,PT (units unknown) (unknown) (unknown) (no date) (unknown) (unknown) -placed general surgery consult Dr. Turner (units unknown) (unknown) (unknown) (no date) (unknown) (unknown) -positive nitrate urinalysis culture pending, transaminitis (units unknown) (unknown) (unknown) (no date) (unknown) (unknown) -strict fall precautions, bed alarm, keep door open for observation (units unknown) (unknown) (unknown) (no date) (unknown) (unknown) -urinalysis brown, positive for protein, ketones, nitrites, bili 3+, leuks, RBC (units unknown) (unknown) (unknown) (no date) (unknown) (unknown) [id number] (units unknown) (unknown) (unknown) (no date) (unknown) (unknown) 06/16/22 06/16/22 06/16/22 (units unknown) (unknown) (unknown) (no date) (unknown) (unknown) 06/16/22 06/16/22 (units unknown) (unknown) (unknown) (no date) (unknown) (unknown) 06/16/22 12:35 (units unknown) (unknown) (unknown) (no date) (unknown) (unknown) 06/16/22 (units unknown) (unknown) (unknown) (no date) (unknown) (unknown) 06/17/22 0211 (units unknown) (unknown) (unknown) (no date) (unknown) (unknown) 1. Sepsis without septic shock, likely hepatobiliary origin, and UTI, acute, (units unknown) (unknown) (unknown) (no date) (unknown) (unknown) 1030- Culture pending (units unknown) (unknown) (unknown) (no date) (unknown) (unknown) 12:35 12:35 12:35 (units unknown) (unknown) (unknown) (no date) (unknown) (unknown) 13:15 06/16/22 (units unknown) (unknown) (unknown) (no date) (unknown) (unknown) 13:30 (units unknown) (unknown) (unknown) (no date) (unknown) (unknown) 13:45 06/16/22 (units unknown) (unknown) (unknown) (no date) (unknown) (unknown) 13:46 06/16/22 (units unknown) (unknown) (unknown) (no date) (unknown) (unknown) 13:46 (units unknown) (unknown) (unknown) (no date) (unknown) (unknown) 14:00 06/16/22 (units unknown) (unknown) (unknown) (no date) (unknown) (unknown) 14:24 (units unknown) (unknown) (unknown) (no date) (unknown) (unknown) 14:30 06/16/22 (units unknown) (unknown) (unknown) (no date) (unknown) (unknown) 14:45 02/24/23 (units unknown) (unknown) (unknown) (no date) (unknown) (unknown) 15:00 (units unknown) (unknown) (unknown) (no date) (unknown) (unknown) 15:15 06/16/22 (units unknown) (unknown) (unknown) (no date) (unknown) (unknown) 15:30 06/16/22 (units unknown) (unknown) (unknown) (no date) (unknown) (unknown) 15:30 17:55 (units unknown) (unknown) (unknown) (no date) (unknown) (unknown) 15:34 06/16/22 (units unknown) (unknown) (unknown) (no date) (unknown) (unknown) 15:34 (units unknown) (unknown) (unknown) (no date) (unknown) (unknown) 15:45 06/16/22 (units unknown) (unknown) (unknown) (no date) (unknown) (unknown) 15:45 (units unknown) (unknown) (unknown) (no date) (unknown) (unknown) 16:00 06/16/22 (units unknown) (unknown) (unknown) (no date) (unknown) (unknown) 16:15 06/16/22 (units unknown) (unknown) (unknown) (no date) (unknown) (unknown) 16:15 (units unknown) (unknown) (unknown) (no date) (unknown) (unknown) 16:30 06/16/22 (units unknown) (unknown) (unknown) (no date) (unknown) (unknown) 16:31 06/16/22 (units unknown) (unknown) (unknown) (no date) (unknown) (unknown) 16:31 (units unknown) (unknown) (unknown) (no date) (unknown) (unknown) 16:45 06/16/22 (units unknown) (unknown) (unknown) (no date) (unknown) (unknown) 17.6, INR 1.5, PTT 38 (units unknown) (unknown) (unknown) (no date) (unknown) (unknown) 17.6, INR 1.5, PTT 38. Sodium 135, BUN 34, glucose 146, calcium 8.1, magnesium (units unknown) (unknown) (unknown) (no date) (unknown) (unknown) 17:00 06/16/22 (units unknown) (unknown) (unknown) (no date) (unknown) (unknown) 17:00 (units unknown) (unknown) (unknown) (no date) (unknown) (unknown) 17:15 06/16/22 (units unknown) (unknown) (unknown) (no date) (unknown) (unknown) 17:15 (units unknown) (unknown) (unknown) (no date) (unknown) (unknown) 17:30 06/16/22 (units unknown) (unknown) (unknown) (no date) (unknown) (unknown) 17:45 (units unknown) (unknown) (unknown) (no date) (unknown) (unknown) 17:46 06/16/22 (units unknown) (unknown) (unknown) (no date) (unknown) (unknown) 17:59 (units unknown) (unknown) (unknown) (no date) (unknown) (unknown) 18:00 06/16/22 (units unknown) (unknown) (unknown) (no date) (unknown) (unknown) 18:01 06/16/22 (units unknown) (unknown) (unknown) (no date) (unknown) (unknown) 18:15 06/16/22 (units unknown) (unknown) (unknown) (no date) (unknown) (unknown) 18:15 (units unknown) (unknown) (unknown) (no date) (unknown) (unknown) 18:30 06/16/22 (units unknown) (unknown) (unknown) (no date) (unknown) (unknown) 18:30 (units unknown) (unknown) (unknown) (no date) (unknown) (unknown) 18:45 06/16/22 (units unknown) (unknown) (unknown) (no date) (unknown) (unknown) 19:00 06/16/22 (units unknown) (unknown) (unknown) (no date) (unknown) (unknown) 19:00 (units unknown) (unknown) (unknown) (no date) (unknown) (unknown) 19:15 06/16/22 (units unknown) (unknown) (unknown) (no date) (unknown) (unknown) 19:15 (units unknown) (unknown) (unknown) (no date) (unknown) (unknown) 19:30 06/16/22 (units unknown) (unknown) (unknown) (no date) (unknown) (unknown) 19:45 06/16/22 (units unknown) (unknown) (unknown) (no date) (unknown) (unknown) 19:45 (units unknown) (unknown) (unknown) (no date) (unknown) (unknown) 2. Transaminitis, with elevated alkaline phosphate, acute, present on admission (units unknown) (unknown) (unknown) (no date) (unknown) (unknown) 2.6, phosphorus 4.1, bili 2.1, AST 61, ALT 63, alk-phos 428, total protein 5.8, (units unknown) (unknown) (unknown) (no date) (unknown) (unknown) 20:00 06/16/22 (units unknown) (unknown) (unknown) (no date) (unknown) (unknown) 20:00 (units unknown) (unknown) (unknown) (no date) (unknown) (unknown) 20:15 06/16/22 (units unknown) (unknown) (unknown) (no date) (unknown) (unknown) 20:30 06/16/22 (units unknown) (unknown) (unknown) (no date) (unknown) (unknown) 20:30 (units unknown) (unknown) (unknown) (no date) (unknown) (unknown) 20:45 06/16/22 (units unknown) (unknown) (unknown) (no date) (unknown) (unknown) 20:46 06/16/22 (units unknown) (unknown) (unknown) (no date) (unknown) (unknown) 20:46 (units unknown) (unknown) (unknown) (no date) (unknown) (unknown) 20:55 (units unknown) (unknown) (unknown) (no date) (unknown) (unknown) 20s. During admit interview patient is pleasantly confused orientated to self (units unknown) (unknown) (unknown) (no date) (unknown) (unknown) 3. UTI, acute, present on admission (units unknown) (unknown) (unknown) (no date) (unknown) (unknown) 4 mos (units unknown) (unknown) (unknown) (no date) (unknown) (unknown) 4. Encephalopathy/cogn itive impairment, unclear if this is chronic or acute, (units unknown) (unknown) (unknown) (no date) (unknown) (unknown) 5. Essential hypertension, chronic, present on admission (units unknown) (unknown) (unknown) (no date) (unknown) (unknown) 6. Atrial fibrillation, with pacemaker, on chronic Eliquis, acute on chronic, (units unknown) (unknown) (unknown) (no date) (unknown) (unknown) 7. Malnutrition, mild, acute on chronic, present on admission (units unknown) (unknown) (unknown) (no date) (unknown) (unknown) 98% on room air. Patient did get up and ambulate to the restroo w/MA without (units unknown) (unknown) (unknown) (no date) (unknown) (unknown) A1C 5.8% (units unknown) (unknown) (unknown) (no date) (unknown) (unknown) ALT 63 H (units unknown) (unknown) (unknown) (no date) (unknown) (unknown) ALT (units unknown) (unknown) (unknown) (no date) (unknown) (unknown) APTT 38 H (units unknown) (unknown) (unknown) (no date) (unknown) (unknown) APTT (units unknown) (unknown) (unknown) (no date) (unknown) (unknown) AST 61 H (units unknown) (unknown) (unknown) (no date) (unknown) (unknown) AST (units unknown) (unknown) (unknown) (no date) (unknown) (unknown) Abdomen: Soft nontender, negative for organomegaly, or masses. Bowel sounds (units unknown) (unknown) (unknown) (no date) (unknown) (unknown) Age/Sex: 86 / M (units unknown) (unknown) (unknown) (no date) (unknown) (unknown) Albumin 3.1 L (units unknown) (unknown) (unknown) (no date) (unknown) (unknown) Albumin (units unknown) (unknown) (unknown) (no date) (unknown) (unknown) Albumin/Globulin Ratio 1.1 (units unknown) (unknown) (unknown) (no date) (unknown) (unknown) Albumin/Globulin Ratio (units unknown) (unknown) (unknown) (no date) (unknown) (unknown) Alkaline Phosphatase 428 H (units unknown) (unknown) (unknown) (no date) (unknown) (unknown) Alkaline Phosphatase (units unknown) (unknown) (unknown) (no date) (unknown) (unknown) Allergies (units unknown) (unknown) (unknown) (no date) (unknown) (unknown) Allergy/AdvReac Type Severity Reaction Status Date / Time (units unknown) (unknown) (unknown) (no date) (unknown) (unknown) Assessment + Plan narrative: (units unknown) (unknown) (unknown) (no date) (unknown) (unknown) Assessment + Plan (units unknown) (unknown) (unknown) (no date) (unknown) (unknown) Asthma (units unknown) (unknown) (unknown) (no date) (unknown) (unknown) Atrial fibrillation (units unknown) (unknown) (unknown) (no date) (unknown) (unknown) BUN 34 H (units unknown) (unknown) (unknown) (no date) (unknown) (unknown) BUN (units unknown) (unknown) (unknown) (no date) (unknown) (unknown) BUN/Creatinine Ratio 34.3 H (units unknown) (unknown) (unknown) (no date) (unknown) (unknown) BUN/Creatinine Ratio (units unknown) (unknown) (unknown) (no date) (unknown) (unknown) Baso # (Auto) 100 (units unknown) (unknown) (unknown) (no date) (unknown) (unknown) Baso # (Auto) (units unknown) (unknown) (unknown) (no date) (unknown) (unknown) Baso % (Auto) 0.8 (units unknown) (unknown) (unknown) (no date) (unknown) (unknown) Baso % (Auto) (units unknown) (unknown) (unknown) (no date) (unknown) (unknown) Blood Pressure 141/57 H (units unknown) (unknown) (unknown) (no date) (unknown) (unknown) Blood Pressure 141/73 H (units unknown) (unknown) (unknown) (no date) (unknown) (unknown) Blood Pressure 142/65 H 156/70 H (units unknown) (unknown) (unknown) (no date) (unknown) (unknown) Blood Pressure 142/67 H (units unknown) (unknown) (unknown) (no date) (unknown) (unknown) Blood Pressure 143/67 H (units unknown) (unknown) (unknown) (no date) (unknown) (unknown) Blood Pressure 145/69 H (units unknown) (unknown) (unknown) (no date) (unknown) (unknown) Blood Pressure 146/69 H (units unknown) (unknown) (unknown) (no date) (unknown) (unknown) Blood Pressure 147/71 H 150/72 H (units unknown) (unknown) (unknown) (no date) (unknown) (unknown) Blood Pressure 149/68 H 130/59 L (units unknown) (unknown) (unknown) (no date) (unknown) (unknown) Blood Pressure 149/78 H 155/70 H (units unknown) (unknown) (unknown) (no date) (unknown) (unknown) Blood Pressure 150/73 H (units unknown) (unknown) (unknown) (no date) (unknown) (unknown) Blood Pressure 151/72 H (units unknown) (unknown) (unknown) (no date) (unknown) (unknown) Blood Pressure 154/73 H (units unknown) (unknown) (unknown) (no date) (unknown) (unknown) Blood Pressure 156/72 H 151/72 H (units unknown) (unknown) (unknown) (no date) (unknown) (unknown) Blood Pressure 162/114 H (units unknown) (unknown) (unknown) (no date) (unknown) (unknown) Blood Pressure 164/94 H 164/96 H (units unknown) (unknown) (unknown) (no date) (unknown) (unknown) Blood Pressure 179/74 H 179/94 H (units unknown) (unknown) (unknown) (no date) (unknown) (unknown) Blood Pressure 186/112 H 169/75 H (units unknown) (unknown) (unknown) (no date) (unknown) (unknown) Blood Pressure (units unknown) (unknown) (unknown) (no date) (unknown) (unknown) CK-MB (CK-2) Rel Index TNP (units unknown) (unknown) (unknown) (no date) (unknown) (unknown) CK-MB (CK-2) Rel Index (units unknown) (unknown) (unknown) (no date) (unknown) (unknown) CK-MB (CK-2) TNP (units unknown) (unknown) (unknown) (no date) (unknown) (unknown) CK-MB (CK-2) (units unknown) (unknown) (unknown) (no date) (unknown) (unknown) COVID PCR: Negative (units unknown) (unknown) (unknown) (no date) (unknown) (unknown) COVID, influenza a/B/RSV negative (units unknown) (unknown) (unknown) (no date) (unknown) (unknown) Calcium 8.1 L (units unknown) (unknown) (unknown) (no date) (unknown) (unknown) Calcium (units unknown) (unknown) (unknown) (no date) (unknown) (unknown) Carbon Dioxide 28 (units unknown) (unknown) (unknown) (no date) (unknown) (unknown) Carbon Dioxide (units unknown) (unknown) (unknown) (no date) (unknown) (unknown) Cardio: regular rate and rhythm without murmur, rubs, or gallops, no carotid (units unknown) (unknown) (unknown) (no date) (unknown) (unknown) Chest: Equal expansion, positive kyphoscoliosis, no nasal flaring, retractions, (units unknown) (unknown) (unknown) (no date) (unknown) (unknown) Chief complaint: Pain near pacemaker (units unknown) (unknown) (unknown) (no date) (unknown) (unknown) Chloride 99 (units unknown) (unknown) (unknown) (no date) (unknown) (unknown) Chloride (units unknown) (unknown) (unknown) (no date) (unknown) (unknown) Chronic anticoagulation (units unknown) (unknown) (unknown) (no date) (unknown) (unknown) Code status:Full (units unknown) (unknown) (unknown) (no date) (unknown) (unknown) Creatinine 0.99 (units unknown) (unknown) (unknown) (no date) (unknown) (unknown) Creatinine (units unknown) (unknown) (unknown) (no date) (unknown) (unknown) Critical Care time: (units unknown) (unknown) (unknown) (no date) (unknown) (unknown) : 1935 Acct:[id number] (units unknown) (unknown) (unknown) (no date) (unknown) (unknown) DVT/VTE prophylaxis: Eliquis, and SCDs (units unknown) (unknown) (unknown) (no date) (unknown) (unknown) Date Patient Seen: 06/16/22 (units unknown) (unknown) (unknown) (no date) (unknown) (unknown) Date of Service: 06/16/22 (units unknown) (unknown) (unknown) (no date) (unknown) (unknown) Disposition: Patient admitted to acute care for evaluation and treatment of (units unknown) (unknown) (unknown) (no date) (unknown) (unknown) Yoseph Cardoso is a 86-year-old male with a history of atrial fibrillation, with (units unknown) (unknown) (unknown) (no date) (unknown) (unknown) Due to patient's cognitive impairment/encephal opathy unable to obtain HPI, ROS, (units unknown) (unknown) (unknown) (no date) (unknown) (unknown) Environment (units unknown) (unknown) (unknown) (no date) (unknown) (unknown) Eos # (Auto) 0 (units unknown) (unknown) (unknown) (no date) (unknown) (unknown) Eos # (Auto) (units unknown) (unknown) (unknown) (no date) (unknown) (unknown) Eos % (Auto) 0.1 L (units unknown) (unknown) (unknown) (no date) (unknown) (unknown) Eos % (Auto) (units unknown) (unknown) (unknown) (no date) (unknown) (unknown) Essential hypertension (units unknown) (unknown) (unknown) (no date) (unknown) (unknown) Estimated GFR > 60 (units unknown) (unknown) (unknown) (no date) (unknown) (unknown) Estimated GFR (units unknown) (unknown) (unknown) (no date) (unknown) (unknown) Exam Narrative: (units unknown) (unknown) (unknown) (no date) (unknown) (unknown) Exam (units unknown) (unknown) (unknown) (no date) (unknown) (unknown) Family + Social History (units unknown) (unknown) (unknown) (no date) (unknown) (unknown) Family History (units unknown) (unknown) (unknown) (no date) (unknown) (unknown) Father Diabetes mellitus (units unknown) (unknown) (unknown) (no date) (unknown) (unknown) Feels Safe in Current Yes, patient lives at home with his . (units unknown) (unknown) (unknown) (no date) (unknown) (unknown) Full range of motion intact radial and pedal pulses are normal. (units unknown) (unknown) (unknown) (no date) (unknown) (unknown) General: Patient is a pleasantly confused cachectic, frail, elderly male, in no (units unknown) (unknown) (unknown) (no date) (unknown) (unknown) Globulin 2.7 (units unknown) (unknown) (unknown) (no date) (unknown) (unknown) Globulin (units unknown) (unknown) (unknown) (no date) (unknown) (unknown) Glucose 146 H (units unknown) (unknown) (unknown) (no date) (unknown) (unknown) Glucose (units unknown) (unknown) (unknown) (no date) (unknown) (unknown) HEENT: Normocephalic, atraumatic, extraocular muscles intact, oral pharynx is (units unknown) (unknown) (unknown) (no date) (unknown) (unknown) Hct 46.6 (units unknown) (unknown) (unknown) (no date) (unknown) (unknown) Hct (units unknown) (unknown) (unknown) (no date) (unknown) (unknown) Head CT negative. CXR ?Possible mild right and retrocardiac opacities Chest CT (units unknown) (unknown) (unknown) (no date) (unknown) (unknown) Hgb 15.4 (units unknown) (unknown) (unknown) (no date) (unknown) (unknown) Hgb (units unknown) (unknown) (unknown) (no date) (unknown) (unknown) History + Physical Report (units unknown) (unknown) (unknown) (no date) (unknown) (unknown) History of Present Illness (units unknown) (unknown) (unknown) (no date) (unknown) (unknown) History of melanoma (units unknown) (unknown) (unknown) (no date) (unknown) (unknown) History of permanent cardiac pacemaker placement (units unknown) (unknown) (unknown) (no date) (unknown) (unknown) History (units unknown) (unknown) (unknown) (no date) (unknown) (unknown) Home Medications and Allergies (units unknown) (unknown) (unknown) (no date) (unknown) (unknown) Home Medications (units unknown) (unknown) (unknown) (no date) (unknown) (unknown) I confirmed that the patient's advanced care plan is present, Code status is (units unknown) (unknown) (unknown) (no date) (unknown) (unknown) I have personally reviewed patient's chart notes from PCP, specialists, (units unknown) (unknown) (unknown) (no date) (unknown) (unknown) I have utilized all available immediate resources to obtain, update, or review (units unknown) (unknown) (unknown) (no date) (unknown) (unknown) I spent a total of [] minutes of critical care time on this patient's care (units unknown) (unknown) (unknown) (no date) (unknown) (unknown) INR 1.5 H (units unknown) (unknown) (unknown) (no date) (unknown) (unknown) INR (units unknown) (unknown) (unknown) (no date) (unknown) (unknown) Influenza A (RT-PCR) Flu a negative (units unknown) (unknown) (unknown) (no date) (unknown) (unknown) Influenza A (RT-PCR) (units unknown) (unknown) (unknown) (no date) (unknown) (unknown) Influenza B (RT-PCR) Flu b negative (units unknown) (unknown) (unknown) (no date) (unknown) (unknown) Influenza B (RT-PCR) (units unknown) (unknown) (unknown) (no date) (unknown) (unknown) [address] [address] (units unknown) (unknown) (unknown) (no date) (unknown) (unknown) Laboratory Results - last 24 hr (units unknown) (unknown) (unknown) (no date) (unknown) (unknown) Labs (units unknown) (unknown) (unknown) (no date) (unknown) (unknown) Labs: (units unknown) (unknown) (unknown) (no date) (unknown) (unknown) Lactate 2.7 H (units unknown) (unknown) (unknown) (no date) (unknown) (unknown) Lactate 4.3 H* (units unknown) (unknown) (unknown) (no date) (unknown) (unknown) Lactate (units unknown) (unknown) (unknown) (no date) (unknown) (unknown) Lipase 45 (units unknown) (unknown) (unknown) (no date) (unknown) (unknown) Lipase (units unknown) (unknown) (unknown) (no date) (unknown) (unknown) Lungs: Auscultation of all lung troy are clear without adventitious sounds, (units unknown) (unknown) (unknown) (no date) (unknown) (unknown) Lymph # (Auto) 400 L (units unknown) (unknown) (unknown) (no date) (unknown) (unknown) Lymph # (Auto) (units unknown) (unknown) (unknown) (no date) (unknown) (unknown) Lymph % (Auto) 4.6 L (units unknown) (unknown) (unknown) (no date) (unknown) (unknown) Lymph % (Auto) (units unknown) (unknown) (unknown) (no date) (unknown) (unknown) MCH 30.4 (units unknown) (unknown) (unknown) (no date) (unknown) (unknown) MCH (units unknown) (unknown) (unknown) (no date) (unknown) (unknown) MCHC 33.0 (units unknown) (unknown) (unknown) (no date) (unknown) (unknown) MCHC (units unknown) (unknown) (unknown) (no date) (unknown) (unknown) MCV 92.4 (units unknown) (unknown) (unknown) (no date) (unknown) (unknown) MCV (units unknown) (unknown) (unknown) (no date) (unknown) (unknown) Magnesium 2.6 H (units unknown) (unknown) (unknown) (no date) (unknown) (unknown) Magnesium (units unknown) (unknown) (unknown) (no date) (unknown) (unknown) Medical History (Updated 06/17/22 @ 00:55 by JOSE Crystal) (units unknown) (unknown) (unknown) (no date) (unknown) (unknown) Medication Instructions Recorded Confirmed Type (units unknown) (unknown) (unknown) (no date) (unknown) (unknown) Meds (units unknown) (unknown) (unknown) (no date) (unknown) (unknown) [place] # (Auto) 900 (units unknown) (unknown) (unknown) (no date) (unknown) (unknown) [place] # (Auto) (units unknown) (unknown) (unknown) (no date) (unknown) (unknown) [place] % (Auto) 9.4 (units unknown) (unknown) (unknown) (no date) (unknown) (unknown) [place] % (Auto) (units unknown) (unknown) (unknown) (no date) (unknown) (unknown) Mother No problems noted. (units unknown) (unknown) (unknown) (no date) (unknown) (unknown) Musculoskeletal: Diffuse but equal throughout all extremity muscle wasting, no (units unknown) (unknown) (unknown) (no date) (unknown) (unknown) NT-Pro-B Natriuret Pep 1430 H (units unknown) (unknown) (unknown) (no date) (unknown) (unknown) NT-Pro-B Natriuret Pep (units unknown) (unknown) (unknown) (no date) (unknown) (unknown) Narrative (units unknown) (unknown) (unknown) (no date) (unknown) (unknown) Narrative: (units unknown) (unknown) (unknown) (no date) (unknown) (unknown) Negative for JVD (units unknown) (unknown) (unknown) (no date) (unknown) (unknown) Neuro: Alert and orientated x2 Person + Place , moves all extremities, (units unknown) (unknown) (unknown) (no date) (unknown) (unknown) Neut # (Auto) 8200 H (units unknown) (unknown) (unknown) (no date) (unknown) (unknown) Neut # (Auto) (units unknown) (unknown) (unknown) (no date) (unknown) (unknown) Neut % (Auto) 85.1 H (units unknown) (unknown) (unknown) (no date) (unknown) (unknown) Neut % (Auto) (units unknown) (unknown) (unknown) (no date) (unknown) (unknown) Objective (units unknown) (unknown) (unknown) (no date) (unknown) (unknown) Oxygen Delivery Method Room Air (units unknown) (unknown) (unknown) (no date) (unknown) (unknown) Oxygen Delivery Method (units unknown) (unknown) (unknown) (no date) (unknown) (unknown) PT 17.6 H (units unknown) (unknown) (unknown) (no date) (unknown) (unknown) PT (units unknown) (unknown) (unknown) (no date) (unknown) (unknown) Pacemaker (units unknown) (unknown) (unknown) (no date) (unknown) (unknown) Patient History (units unknown) (unknown) (unknown) (no date) (unknown) (unknown) Patient: Yoseph Cardoso MR#: [id number] (units unknown) (unknown) (unknown) (no date) (unknown) (unknown) Phosphorus 4.1 H (units unknown) (unknown) (unknown) (no date) (unknown) (unknown) Phosphorus (units unknown) (unknown) (unknown) (no date) (unknown) (unknown) Plt Count 222 (units unknown) (unknown) (unknown) (no date) (unknown) (unknown) Plt Count (units unknown) (unknown) (unknown) (no date) (unknown) (unknown) Potassium 4.8 (units unknown) (unknown) (unknown) (no date) (unknown) (unknown) Potassium (units unknown) (unknown) (unknown) (no date) (unknown) (unknown) Procalcitonin 3.27 H (units unknown) (unknown) (unknown) (no date) (unknown) (unknown) Procalcitonin (units unknown) (unknown) (unknown) (no date) (unknown) (unknown) Provider: Hawa Michael (units unknown) (unknown) (unknown) (no date) (unknown) (unknown) Psych: Patient has a well-kept appearance, pleasant affect, mental status (units unknown) (unknown) (unknown) (no date) (unknown) (unknown) Pulse Oximetry 93 100 (units unknown) (unknown) (unknown) (no date) (unknown) (unknown) Pulse Oximetry 94 96 (units unknown) (unknown) (unknown) (no date) (unknown) (unknown) Pulse Oximetry 95 (units unknown) (unknown) (unknown) (no date) (unknown) (unknown) Pulse Oximetry 96 91 (units unknown) (unknown) (unknown) (no date) (unknown) (unknown) Pulse Oximetry 96 99 (units unknown) (unknown) (unknown) (no date) (unknown) (unknown) Pulse Oximetry 96 (units unknown) (unknown) (unknown) (no date) (unknown) (unknown) Pulse Oximetry 97 96 97 (units unknown) (unknown) (unknown) (no date) (unknown) (unknown) Pulse Oximetry 97 97 98 (units unknown) (unknown) (unknown) (no date) (unknown) (unknown) Pulse Oximetry 97 97 (units unknown) (unknown) (unknown) (no date) (unknown) (unknown) Pulse Oximetry 97 (units unknown) (unknown) (unknown) (no date) (unknown) (unknown) Pulse Oximetry 98 97 (units unknown) (unknown) (unknown) (no date) (unknown) (unknown) Pulse Oximetry 98 (units unknown) (unknown) (unknown) (no date) (unknown) (unknown) Pulse Oximetry (units unknown) (unknown) (unknown) (no date) (unknown) (unknown) Pulse Rate 111 H (units unknown) (unknown) (unknown) (no date) (unknown) (unknown) Pulse Rate 114 H 118 H (units unknown) (unknown) (unknown) (no date) (unknown) (unknown) Pulse Rate 154 H (units unknown) (unknown) (unknown) (no date) (unknown) (unknown) Pulse Rate 72 66 (units unknown) (unknown) (unknown) (no date) (unknown) (unknown) Pulse Rate 72 71 (units unknown) (unknown) (unknown) (no date) (unknown) (unknown) Pulse Rate 72 74 (units unknown) (unknown) (unknown) (no date) (unknown) (unknown) Pulse Rate 72 (units unknown) (unknown) (unknown) (no date) (unknown) (unknown) Pulse Rate 73 74 (units unknown) (unknown) (unknown) (no date) (unknown) (unknown) Pulse Rate 73 87 98 H (units unknown) (unknown) (unknown) (no date) (unknown) (unknown) Pulse Rate 73 (units unknown) (unknown) (unknown) (no date) (unknown) (unknown) Pulse Rate 74 104 H 106 H (units unknown) (unknown) (unknown) (no date) (unknown) (unknown) Pulse Rate 75 116 H (units unknown) (unknown) (unknown) (no date) (unknown) (unknown) Pulse Rate 75 70 (units unknown) (unknown) (unknown) (no date) (unknown) (unknown) Pulse Rate 75 74 74 (units unknown) (unknown) (unknown) (no date) (unknown) (unknown) Pulse Rate 75 (units unknown) (unknown) (unknown) (no date) (unknown) (unknown) Pulse Rate 76 (units unknown) (unknown) (unknown) (no date) (unknown) (unknown) Pulse Rate 78 75 (units unknown) (unknown) (unknown) (no date) (unknown) (unknown) Pulse Rate 84 77 (units unknown) (unknown) (unknown) (no date) (unknown) (unknown) Pulse Rate 86 72 (units unknown) (unknown) (unknown) (no date) (unknown) (unknown) Pulse Rate 98 H (units unknown) (unknown) (unknown) (no date) (unknown) (unknown) RBC 5.05 (units unknown) (unknown) (unknown) (no date) (unknown) (unknown) RBC (units unknown) (unknown) (unknown) (no date) (unknown) (unknown) RDW 14.4 (units unknown) (unknown) (unknown) (no date) (unknown) (unknown) RDW (units unknown) (unknown) (unknown) (no date) (unknown) (unknown) RSV (PCR) Negative (units unknown) (unknown) (unknown) (no date) (unknown) (unknown) RSV (PCR) (units unknown) (unknown) (unknown) (no date) (unknown) (unknown) Respiratory Rate 12 25 H (units unknown) (unknown) (unknown) (no date) (unknown) (unknown) Respiratory Rate 13 26 H (units unknown) (unknown) (unknown) (no date) (unknown) (unknown) Respiratory Rate 16 20 (units unknown) (unknown) (unknown) (no date) (unknown) (unknown) Respiratory Rate 17 26 H (units unknown) (unknown) (unknown) (no date) (unknown) (unknown) Respiratory Rate 17 (units unknown) (unknown) (unknown) (no date) (unknown) (unknown) Respiratory Rate 18 32 H (units unknown) (unknown) (unknown) (no date) (unknown) (unknown) Respiratory Rate 18 (units unknown) (unknown) (unknown) (no date) (unknown) (unknown) Respiratory Rate 19 18 (units unknown) (unknown) (unknown) (no date) (unknown) (unknown) Respiratory Rate 19 34 H 39 H (units unknown) (unknown) (unknown) (no date) (unknown) (unknown) Respiratory Rate 19 (units unknown) (unknown) (unknown) (no date) (unknown) (unknown) Respiratory Rate 20 (units unknown) (unknown) (unknown) (no date) (unknown) (unknown) Respiratory Rate 22 20 (units unknown) (unknown) (unknown) (no date) (unknown) (unknown) Respiratory Rate 23 17 16 (units unknown) (unknown) (unknown) (no date) (unknown) (unknown) Respiratory Rate 23 18 (units unknown) (unknown) (unknown) (no date) (unknown) (unknown) Respiratory Rate 24 19 (units unknown) (unknown) (unknown) (no date) (unknown) (unknown) Respiratory Rate 24 23 (units unknown) (unknown) (unknown) (no date) (unknown) (unknown) Respiratory Rate 27 H (units unknown) (unknown) (unknown) (no date) (unknown) (unknown) Respiratory Rate 29 H (units unknown) (unknown) (unknown) (no date) (unknown) (unknown) Respiratory Rate 30 H 24 (units unknown) (unknown) (unknown) (no date) (unknown) (unknown) Respiratory Rate (units unknown) (unknown) (unknown) (no date) (unknown) (unknown) Review of Systems (units unknown) (unknown) (unknown) (no date) (unknown) (unknown) SARS-CoV-2 (PCR) Negative (units unknown) (unknown) (unknown) (no date) (unknown) (unknown) SARS-CoV-2 (PCR) (units unknown) (unknown) (unknown) (no date) (unknown) (unknown) Safety + Behavioral: (units unknown) (unknown) (unknown) (no date) (unknown) (unknown) Signed By:<Electronically signed by Hawa Michael> (units unknown) (unknown) (unknown) (no date) (unknown) (unknown) Skin: Warm Very dry, poor turgor, appears significantly dehydrated and wasting (units unknown) (unknown) (unknown) (no date) (unknown) (unknown) Smoking Status never (units unknown) (unknown) (unknown) (no date) (unknown) (unknown) Sodium 135 L (units unknown) (unknown) (unknown) (no date) (unknown) (unknown) Sodium (units unknown) (unknown) (unknown) (no date) (unknown) (unknown) Substance Use Type does not use (units unknown) (unknown) (unknown) (no date) (unknown) (unknown) Surgical History (Updated 06/16/22 @ 21:27 by Hawa Michael [facility]) (units unknown) (unknown) (unknown) (no date) (unknown) (unknown) Surrogate decision maker: Aletha Cardoso (units unknown) (unknown) (unknown) (no date) (unknown) (unknown) Temperature 98.1 F (units unknown) (unknown) (unknown) (no date) (unknown) (unknown) Temperature (units unknown) (unknown) (unknown) (no date) (unknown) (unknown) This increases the difficulty in complexity of medical management and increases (units unknown) (unknown) (unknown) (no date) (unknown) (unknown) Time Patient Seen: 15:35 (units unknown) (unknown) (unknown) (no date) (unknown) (unknown) Time Spent With Patient (units unknown) (unknown) (unknown) (no date) (unknown) (unknown) Tobacco + Substance use: (units unknown) (unknown) (unknown) (no date) (unknown) (unknown) Total Bilirubin 2.1 H (units unknown) (unknown) (unknown) (no date) (unknown) (unknown) Total Bilirubin (units unknown) (unknown) (unknown) (no date) (unknown) (unknown) Total Creatine Kinase 53 L (units unknown) (unknown) (unknown) (no date) (unknown) (unknown) Total Creatine Kinase (units unknown) (unknown) (unknown) (no date) (unknown) (unknown) Total Protein 5.8 L (units unknown) (unknown) (unknown) (no date) (unknown) (unknown) Total Protein (units unknown) (unknown) (unknown) (no date) (unknown) (unknown) Troponin I < 0.012 (units unknown) (unknown) (unknown) (no date) (unknown) (unknown) Troponin I (units unknown) (unknown) (unknown) (no date) (unknown) (unknown) Upon admit BP 149/78, tachycardic heart rate 154, tachypneic R 29, O2 saturation (units unknown) (unknown) (unknown) (no date) (unknown) (unknown) Ur Bilirubin Confirm Positive H (units unknown) (unknown) (unknown) (no date) (unknown) (unknown) Ur Bilirubin Confirm (units unknown) (unknown) (unknown) (no date) (unknown) (unknown) Ur Culture Indicated? Specimen cultured (units unknown) (unknown) (unknown) (no date) (unknown) (unknown) Ur Culture Indicated? (units unknown) (unknown) (unknown) (no date) (unknown) (unknown) Ur Leukocyte Esterase Trace H (units unknown) (unknown) (unknown) (no date) (unknown) (unknown) Ur Leukocyte Esterase (units unknown) (unknown) (unknown) (no date) (unknown) (unknown) Ur Specific [place] 1.020 (units unknown) (unknown) (unknown) (no date) (unknown) (unknown) Ur Specific [place] (units unknown) (unknown) (unknown) (no date) (unknown) (unknown) Ur Squamous Epith Cells 1-5 /hpf (units unknown) (unknown) (unknown) (no date) (unknown) (unknown) Ur Squamous Epith Cells (units unknown) (unknown) (unknown) (no date) (unknown) (unknown) Urine Appearance Cloudy (units unknown) (unknown) (unknown) (no date) (unknown) (unknown) Urine Appearance (units unknown) (unknown) (unknown) (no date) (unknown) (unknown) Urine Bacteria None seen (units unknown) (unknown) (unknown) (no date) (unknown) (unknown) Urine Bacteria (units unknown) (unknown) (unknown) (no date) (unknown) (unknown) Urine Bilirubin 3+ H (units unknown) (unknown) (unknown) (no date) (unknown) (unknown) Urine Bilirubin (units unknown) (unknown) (unknown) (no date) (unknown) (unknown) Urine Color Brown (units unknown) (unknown) (unknown) (no date) (unknown) (unknown) Urine Color (units unknown) (unknown) (unknown) (no date) (unknown) (unknown) Urine Glucose (UA) Negative (units unknown) (unknown) (unknown) (no date) (unknown) (unknown) Urine Glucose (UA) (units unknown) (unknown) (unknown) (no date) (unknown) (unknown) Urine Ketones 1+ H (units unknown) (unknown) (unknown) (no date) (unknown) (unknown) Urine Ketones (units unknown) (unknown) (unknown) (no date) (unknown) (unknown) Urine Nitrate Positive H (units unknown) (unknown) (unknown) (no date) (unknown) (unknown) Urine Nitrate (units unknown) (unknown) (unknown) (no date) (unknown) (unknown) Urine Occult Blood Trace-intact (units unknown) (unknown) (unknown) (no date) (unknown) (unknown) Urine Occult Blood (units unknown) (unknown) (unknown) (no date) (unknown) (unknown) Urine Protein 1+ H (units unknown) (unknown) (unknown) (no date) (unknown) (unknown) Urine Protein (units unknown) (unknown) (unknown) (no date) (unknown) (unknown) Urine RBC 10-30/hpf H (units unknown) (unknown) (unknown) (no date) (unknown) (unknown) Urine RBC (units unknown) (unknown) (unknown) (no date) (unknown) (unknown) Urine Urobilinogen 1.0 (units unknown) (unknown) (unknown) (no date) (unknown) (unknown) Urine Urobilinogen (units unknown) (unknown) (unknown) (no date) (unknown) (unknown) Urine WBC 1-5/hpf (units unknown) (unknown) (unknown) (no date) (unknown) (unknown) Urine WBC (units unknown) (unknown) (unknown) (no date) (unknown) (unknown) Urine pH 6.5 (units unknown) (unknown) (unknown) (no date) (unknown) (unknown) Urine pH (units unknown) (unknown) (unknown) (no date) (unknown) (unknown) Vital Signs (units unknown) (unknown) (unknown) (no date) (unknown) (unknown) WBC 9.6 (units unknown) (unknown) (unknown) (no date) (unknown) (unknown) WBC (units unknown) (unknown) (unknown) (no date) (unknown) (unknown) [Embedded Image Not Available] (units unknown) (unknown) (unknown) (no date) (unknown) (unknown) [From Prevnar] and feet x (units unknown) (unknown) (unknown) (no date) (unknown) (unknown) a recent 30 lb weight loss, and night sweats with a shuffling gait x6 weeks. He (units unknown) (unknown) (unknown) (no date) (unknown) (unknown) after. (units unknown) (unknown) (unknown) (no date) (unknown) (unknown) albumin 3.1, CK 53, initial troponin negative, BNP 1430. EKG atrial sensed (units unknown) (unknown) (unknown) (no date) (unknown) (unknown) alcohol intake frequency a few times a month (units unknown) (unknown) (unknown) (no date) (unknown) (unknown) also nonspecific and the differential also includes neoplastic processes as well (units unknown) (unknown) (unknown) (no date) (unknown) (unknown) amlodipine 5 mg tablet 5 mg PO DAILY 06/16/22 06/16/22 History (units unknown) (unknown) (unknown) (no date) (unknown) (unknown) and intact without rashes, ulcerations or petechiae. (units unknown) (unknown) (unknown) (no date) (unknown) (unknown) and place, but a very poor historian, stated that 'he came in today by himself (units unknown) (unknown) (unknown) (no date) (unknown) (unknown) and surgical interventions and increases the chances of poor outcomes such as (units unknown) (unknown) (unknown) (no date) (unknown) (unknown) antibiotics for treatment of UTI, monitoring intermittent uncontrolled atrial (units unknown) (unknown) (unknown) (no date) (unknown) (unknown) apixaban 5 mg tablet (Eliquis) 5 mg PO BID blood thinner 06/16/22 06/16/22 (units unknown) (unknown) (unknown) (no date) (unknown) (unknown) appears is no distress at this time, no apparent jaundice, right upper quadrant (units unknown) (unknown) (unknown) (no date) (unknown) (unknown) are present in all 4 quadrants without guarding or rebound, no CVA tenderness. (units unknown) (unknown) (unknown) (no date) (unknown) (unknown) as infectious etiologies such as micro abscesses (units unknown) (unknown) (unknown) (no date) (unknown) (unknown) attitude thought context and judgment are inappropriate- confused, poor (units unknown) (unknown) (unknown) (no date) (unknown) (unknown) because he had black urine this morning'. He did not recall seeing Dr. Gillette, (units unknown) (unknown) (unknown) (no date) (unknown) (unknown) bruit, no cardiac pulsations present. (units unknown) (unknown) (unknown) (no date) (unknown) (unknown) cardiology's office due to deteriorating health concerns. patient admitted for (units unknown) (unknown) (unknown) (no date) (unknown) (unknown) cardiology's office due to his significant presentation of cachexia, weakness, (units unknown) (unknown) (unknown) (no date) (unknown) (unknown) care inpatient hospital management for sepsis, transaminitis, UTI. The patient (units unknown) (unknown) (unknown) (no date) (unknown) (unknown) clear and mucous membranes are dry. Neck is supple and symmetric, trachea is (units unknown) (unknown) (unknown) (no date) (unknown) (unknown) complications in relation to acute illness of sepsis, UTI, transaminase, high (units unknown) (unknown) (unknown) (no date) (unknown) (unknown) conjugate to of hands (units unknown) (unknown) (unknown) (no date) (unknown) (unknown) demonstrated bibasilar infiltrates versus inflammatory pulmonary opacities mild (units unknown) (unknown) (unknown) (no date) (unknown) (unknown) diagnostic imaging, and laboratory results. (units unknown) (unknown) (unknown) (no date) (unknown) (unknown) difficulty, struggles slightly with given directions. Patient has no WBC, but (units unknown) (unknown) (unknown) (no date) (unknown) (unknown) dilated. (units unknown) (unknown) (unknown) (no date) (unknown) (unknown) distress at this time. (units unknown) (unknown) (unknown) (no date) (unknown) (unknown) documented and/or surrogate decision maker is listed in the patient's medical (units unknown) (unknown) (unknown) (no date) (unknown) (unknown) fibrillation, further imaging/lab studies and surgical consult regarding (units unknown) (unknown) (unknown) (no date) (unknown) (unknown) fluticasone propionate 44 44 mcg inhalation DAILY 06/16/22 06/16/22 History (units unknown) (unknown) (unknown) (no date) (unknown) (unknown) for mild sepsis, transaminitis, UTI, encephalopathy. (units unknown) (unknown) (unknown) (no date) (unknown) (unknown) gabapentin 300 mg capsule 300 mg PO BID 06/16/22 06/16/22 History (units unknown) (unknown) (unknown) (no date) (unknown) (unknown) historian. (units unknown) (unknown) (unknown) (no date) (unknown) (unknown) home, also needs goals of care discussion. (units unknown) (unknown) (unknown) (no date) (unknown) (unknown) infection. Numerous small hypoattenuating lesions throughout the spleen are (units unknown) (unknown) (unknown) (no date) (unknown) (unknown) intake and nutrition. (units unknown) (unknown) (unknown) (no date) (unknown) (unknown) is at much higher risk for medical and surgical complications because of his (units unknown) (unknown) (unknown) (no date) (unknown) (unknown) left shiftneut 8200, initial lactate 4.3, repeat 2.7, procalcitonin 3.27, PT (units unknown) (unknown) (unknown) (no date) (unknown) (unknown) lesions throughout the liver, as well as multifocal hepatocellular carcinoma or (units unknown) (unknown) (unknown) (no date) (unknown) (unknown) loss, night sweats, shuffling gait x6 weeks. (units unknown) (unknown) (unknown) (no date) (unknown) (unknown) malaise, balance coordination issues, and concerns for neoplastic syndrome with (units unknown) (unknown) (unknown) (no date) (unknown) (unknown) malnutrition. These factors increase the difficulty and complexity of medical (units unknown) (unknown) (unknown) (no date) (unknown) (unknown) markers. (units unknown) (unknown) (unknown) (no date) (unknown) (unknown) mcg/actuation HFA aerosol inhaler (units unknown) (unknown) (unknown) (no date) (unknown) (unknown) medication reconciliation accurately. (units unknown) (unknown) (unknown) (no date) (unknown) (unknown) midline, no adenopathy, no thyroid enlargement, nontender, no masses palpated. (units unknown) (unknown) (unknown) (no date) (unknown) (unknown) mild sepsis, transaminitis, UTI, encephalopathy. This patient requires acute (units unknown) (unknown) (unknown) (no date) (unknown) (unknown) morbidity and mortality. Patient will require rehydration for sepsis, IV (units unknown) (unknown) (unknown) (no date) (unknown) (unknown) obtain HPI, ROS, or medication reconciliation. Patient denies any pain, and (units unknown) (unknown) (unknown) (no date) (unknown) (unknown) obvious deformity, crepitus, effusions, cyanosis, clubbing or edema present. (units unknown) (unknown) (unknown) (no date) (unknown) (unknown) on room air. (units unknown) (unknown) (unknown) (no date) (unknown) (unknown) opacities mild to moderate right greater than left pulmonary effusion. (units unknown) (unknown) (unknown) (no date) (unknown) (unknown) or labored breathing, mildly tachypneic. 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 Gillette (units unknown) (unknown) (unknown) (no date) (unknown) (unknown) pain, or fever. (units unknown) (unknown) (unknown) (no date) (unknown) (unknown) pneumococcal 7-valent AdvReac Intermediate swelling Verified 06/16/22 12:46 (units unknown) (unknown) (unknown) (no date) (unknown) (unknown) present on admission (units unknown) (unknown) (unknown) (no date) (unknown) (unknown) record. (units unknown) (unknown) (unknown) (no date) (unknown) (unknown) residual>500cc place Brice (units unknown) (unknown) (unknown) (no date) (unknown) (unknown) retrocardiac opacities (units unknown) (unknown) (unknown) (no date) (unknown) (unknown) sensation to touch intact, no gross deficits noted of cranial nerves. (units unknown) (unknown) (unknown) (no date) (unknown) (unknown) sepsis UTI, and transaminitis, expected length of stay greater than 2 midnights. (units unknown) (unknown) (unknown) (no date) (unknown) (unknown) significantly hypovolemic. (units unknown) (unknown) (unknown) (no date) (unknown) (unknown) suspicion for metastatic disease/chronic illness atrial fibrillation and HTN. (units unknown) (unknown) (unknown) (no date) (unknown) (unknown) tachycardia with heart rates 111-154, and tachypneic respiratory rate in the (units unknown) (unknown) (unknown) (no date) (unknown) (unknown) the chances poor outcomes such as mortality and morbidity as well as impaired (units unknown) (unknown) (unknown) (no date) (unknown) (unknown) the patient's current medications. (units unknown) (unknown) (unknown) (no date) (unknown) (unknown) to moderate right greater than left pulmonary effusion. SOFA:2 patient admitted (units unknown) (unknown) (unknown) (no date) (unknown) (unknown) today; this time is exclusive of procedural time. (units unknown) (unknown) (unknown) (no date) (unknown) (unknown) transaminitis-abbey p results will direct plan of care/goals for discharge, as (units unknown) (unknown) (unknown) (no date) (unknown) (unknown) unsure if this is the patient's baseline. Due to cognitive impairment unable to (units unknown) (unknown) (unknown) (no date) (unknown) (unknown) ventricular paced rhythm rate 72, abnormal. COVID, influenza a/B/RSV negative. (units unknown) (unknown) (unknown) (no date) (unknown) (unknown) verify medications in the morning (units unknown) (unknown) (unknown) (no date) (unknown) (unknown) was brought into the ED by his . In ED patient demonstrated escalating (units unknown) (unknown) (unknown) (no date) (unknown) (unknown) well as consult evaluations by PT/OT/HEAVY EQUIPMENT SERVICE TECHNICIAN. (units unknown) (unknown) (unknown) (no date) (unknown) (unknown) wheezes, rhonchi, or rales. (units unknown) (unknown) (unknown) (no date) (unknown) (unknown) wound healing, and immune suppression. (units unknown) (unknown) Result panel 225 (unknown) (no date) (unknown) (unknown) (no value) (units unknown) (unknown) (unknown) (no date) (unknown) (unknown) (Flovent HFA) (units unknown) (unknown) (unknown) (no date) (unknown) (unknown) (past 8 hours): (units unknown) (unknown) (unknown) (no date) (unknown) (unknown) ADDENDUM (units unknown) (unknown) (unknown) (no date) (unknown) (unknown) -BLD/Urine culture pending (units unknown) (unknown) (unknown) (no date) (unknown) (unknown) -Chest CT demonstrated bibasilar infiltrates versus inflammatory pulmonary (units unknown) (unknown) (unknown) (no date) (unknown) (unknown) -[id number] cc/HR (units unknown) (unknown) (unknown) (no date) (unknown) (unknown) -ED:heart rates 111-154, and tachypneic respiratory rate in the 20s. (1L bolus) (units unknown) (unknown) (unknown) (no date) (unknown) (unknown) -EKG atrial sensed ventricular paced rhythm rate 72, abnormal. (units unknown) (unknown) (unknown) (no date) (unknown) (unknown) -GGT 516 -Ordered RT upper Quad U/S tomorrow -will order MRCP if bile ducts are (units unknown) (unknown) (unknown) (no date) (unknown) (unknown) -I personally reviewed imaging studies: CXR ?Possible mild right and (units unknown) (unknown) (unknown) (no date) (unknown) (unknown) -I personally reviewed: ABD/Pelvis CT:?Multiple ill-defined hypoattenuating mass (units unknown) (unknown) (unknown) (no date) (unknown) (unknown) -Monitor electrolytes (units unknown) (unknown) (unknown) (no date) (unknown) (unknown) -Monitor for neurological changes, toxic metabolic encephalopathy (units unknown) (unknown) (unknown) (no date) (unknown) (unknown) -[id number] checks while NPO Only (units unknown) (unknown) (unknown) (no date) (unknown) (unknown) -Negative Fever, jaundice, right upper quadrant pain (units unknown) (unknown) (unknown) (no date) (unknown) (unknown) -Ordered: CRP, ESR, AFP, EPO, hepatitis panel-trend LFT's, and inflammatory (units unknown) (unknown) (unknown) (no date) (unknown) (unknown) -R Factor: 0.4 cholestatic injury- Ordered ABD/P CT (units unknown) (unknown) (unknown) (no date) (unknown) (unknown) -SOFA:2 (units unknown) (unknown) (unknown) (no date) (unknown) (unknown) -Sodium 135, BUN 34, glucose 146, calcium 8.1, magnesium 2.6, phosphorus 4.1, (units unknown) (unknown) (unknown) (no date) (unknown) (unknown) -Suspect dehydration-patient appears severely volume depleted (units unknown) (unknown) (unknown) (no date) (unknown) (unknown) -WBC neg, neut# 8200, initial lactate 4.3, repeat 2.7, procalcitonin 3.27, (units unknown) (unknown) (unknown) (no date) (unknown) (unknown) -Weakness, deconditioning (units unknown) (unknown) (unknown) (no date) (unknown) (unknown) -admit BP 149/78, tachycardic heart rate 154, tachypneic R 29, O2 saturation 98% (units unknown) (unknown) (unknown) (no date) (unknown) (unknown) -as evidence by BMI 22.2-no records for comparison. 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: Concerned patient is not safe to return (units unknown) (unknown) (unknown) (no date) (unknown) (unknown) -continue Eliquis (units unknown) (unknown) (unknown) (no date) (unknown) (unknown) -continue amlodipine-was unable to contact patient's , we will need to (units unknown) (unknown) (unknown) (no date) (unknown) (unknown) -dietary consult ordered to evaluate and implement steps to improve caloric (units unknown) (unknown) (unknown) (no date) (unknown) (unknown) -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 (units unknown) (unknown) (unknown) (no date) (unknown) (unknown) -initial troponin negative (trend x3), BNP 1430-patient has no edema and appear (units unknown) (unknown) (unknown) (no date) (unknown) (unknown) -initiated Zosyn (units unknown) (unknown) (unknown) (no date) (unknown) (unknown) -last echo in our records to of 2019 EF 55-60% (units unknown) (unknown) (unknown) (no date) (unknown) (unknown) -monitor for septic shock (units unknown) (unknown) (unknown) (no date) (unknown) (unknown) -monitor for starvation ketosis (units unknown) (unknown) (unknown) (no date) (unknown) (unknown) -ordered 1L bolus followed by [id number] cc/HR (units unknown) (unknown) (unknown) (no date) (unknown) (unknown) -pain and antiemetic management (units unknown) (unknown) (unknown) (no date) (unknown) (unknown) -patient's malnutrition places them at high risk for medical and surgical (units unknown) (unknown) (unknown) (no date) (unknown) (unknown) -phosphorus 4.1, bili 2.1, AST 61, ALT 63, alk-phos 428, total protein 5.8,PT (units unknown) (unknown) (unknown) (no date) (unknown) (unknown) -placed general surgery consult Dr. Turner (units unknown) (unknown) (unknown) (no date) (unknown) (unknown) -positive nitrate urinalysis culture pending, transaminitis (units unknown) (unknown) (unknown) (no date) (unknown) (unknown) -strict fall precautions, bed alarm, keep door open for observation (units unknown) (unknown) (unknown) (no date) (unknown) (unknown) -urinalysis brown, positive for protein, ketones, nitrites, bili 3+, leuks, RBC (units unknown) (unknown) (unknown) (no date) (unknown) (unknown) [id number] (units unknown) (unknown) (unknown) (no date) (unknown) (unknown) 06/16/22 06/16/22 06/16/22 (units unknown) (unknown) (unknown) (no date) (unknown) (unknown) 06/16/22 06/16/22 (units unknown) (unknown) (unknown) (no date) (unknown) (unknown) 06/16/22 12:35 (units unknown) (unknown) (unknown) (no date) (unknown) (unknown) 06/16/22 (units unknown) (unknown) (unknown) (no date) (unknown) (unknown) 06/17/22 0211 (units unknown) (unknown) (unknown) (no date) (unknown) (unknown) 06/17/22 0303 (units unknown) (unknown) (unknown) (no date) (unknown) (unknown) 0304 (units unknown) (unknown) (unknown) (no date) (unknown) (unknown) 1. Sepsis without septic shock, likely hepatobiliary origin, and UTI, acute, (units unknown) (unknown) (unknown) (no date) (unknown) (unknown) 10-30- Culture pending (units unknown) (unknown) (unknown) (no date) (unknown) (unknown) 12:35 12:35 12:35 (units unknown) (unknown) (unknown) (no date) (unknown) (unknown) 13:15 06/16/22 (units unknown) (unknown) (unknown) (no date) (unknown) (unknown) 13:30 (units unknown) (unknown) (unknown) (no date) (unknown) (unknown) 13:45 06/16/22 (units unknown) (unknown) (unknown) (no date) (unknown) (unknown) 13:46 06/16/22 (units unknown) (unknown) (unknown) (no date) (unknown) (unknown) 13:46 (units unknown) (unknown) (unknown) (no date) (unknown) (unknown) 14:00 06/16/22 (units unknown) (unknown) (unknown) (no date) (unknown) (unknown) 14:24 (units unknown) (unknown) (unknown) (no date) (unknown) (unknown) 14:30 06/16/22 (units unknown) (unknown) (unknown) (no date) (unknown) (unknown) 14:45 06/16/22 (units unknown) (unknown) (unknown) (no date) (unknown) (unknown) 15:00 (units unknown) (unknown) (unknown) (no date) (unknown) (unknown) 15:15 06/16/22 (units unknown) (unknown) (unknown) (no date) (unknown) (unknown) 15:30 06/16/22 (units unknown) (unknown) (unknown) (no date) (unknown) (unknown) 15:30 17:55 (units unknown) (unknown) (unknown) (no date) (unknown) (unknown) 15:34 06/16/22 (units unknown) (unknown) (unknown) (no date) (unknown) (unknown) 15:34 (units unknown) (unknown) (unknown) (no date) (unknown) (unknown) 15:45 06/16/22 (units unknown) (unknown) (unknown) (no date) (unknown) (unknown) 15:45 (units unknown) (unknown) (unknown) (no date) (unknown) (unknown) 16:00 06/16/22 (units unknown) (unknown) (unknown) (no date) (unknown) (unknown) 16:15 06/16/22 (units unknown) (unknown) (unknown) (no date) (unknown) (unknown) 16:15 (units unknown) (unknown) (unknown) (no date) (unknown) (unknown) 16:30 06/16/22 (units unknown) (unknown) (unknown) (no date) (unknown) (unknown) 16:31 06/16/22 (units unknown) (unknown) (unknown) (no date) (unknown) (unknown) 16:31 (units unknown) (unknown) (unknown) (no date) (unknown) (unknown) 16:45 06/16/22 (units unknown) (unknown) (unknown) (no date) (unknown) (unknown) 17.6, INR 1.5, PTT 38 (units unknown) (unknown) (unknown) (no date) (unknown) (unknown) 17.6, INR 1.5, PTT 38. Sodium 135, BUN 34, glucose 146, calcium 8.1, magnesium (units unknown) (unknown) (unknown) (no date) (unknown) (unknown) 17:00 06/16/22 (units unknown) (unknown) (unknown) (no date) (unknown) (unknown) 17:00 (units unknown) (unknown) (unknown) (no date) (unknown) (unknown) 17:15 06/16/22 (units unknown) (unknown) (unknown) (no date) (unknown) (unknown) 17:15 (units unknown) (unknown) (unknown) (no date) (unknown) (unknown) 17:30 06/16/22 (units unknown) (unknown) (unknown) (no date) (unknown) (unknown) 17:45 (units unknown) (unknown) (unknown) (no date) (unknown) (unknown) 17:46 06/16/22 (units unknown) (unknown) (unknown) (no date) (unknown) (unknown) 17:59 (units unknown) (unknown) (unknown) (no date) (unknown) (unknown) 18:00 06/16/22 (units unknown) (unknown) (unknown) (no date) (unknown) (unknown) 18:01 06/16/22 (units unknown) (unknown) (unknown) (no date) (unknown) (unknown) 18:15 06/16/22 (units unknown) (unknown) (unknown) (no date) (unknown) (unknown) 18:15 (units unknown) (unknown) (unknown) (no date) (unknown) (unknown) 18:30 06/16/22 (units unknown) (unknown) (unknown) (no date) (unknown) (unknown) 18:30 (units unknown) (unknown) (unknown) (no date) (unknown) (unknown) 18:45 06/16/22 (units unknown) (unknown) (unknown) (no date) (unknown) (unknown) 19:00 06/16/22 (units unknown) (unknown) (unknown) (no date) (unknown) (unknown) 19:00 (units unknown) (unknown) (unknown) (no date) (unknown) (unknown) 19:15 06/16/22 (units unknown) (unknown) (unknown) (no date) (unknown) (unknown) 19:15 (units unknown) (unknown) (unknown) (no date) (unknown) (unknown) 19:30 06/16/22 (units unknown) (unknown) (unknown) (no date) (unknown) (unknown) 19:45 06/16/22 (units unknown) (unknown) (unknown) (no date) (unknown) (unknown) 19:45 (units unknown) (unknown) (unknown) (no date) (unknown) (unknown) 2. Transaminitis, with elevated alkaline phosphate, acute, present on admission (units unknown) (unknown) (unknown) (no date) (unknown) (unknown) 2.6, phosphorus 4.1, bili 2.1, AST 61, ALT 63, alk-phos 428, total protein 5.8, (units unknown) (unknown) (unknown) (no date) (unknown) (unknown) 20:00 06/16/22 (units unknown) (unknown) (unknown) (no date) (unknown) (unknown) 20:00 (units unknown) (unknown) (unknown) (no date) (unknown) (unknown) 20:15 06/16/22 (units unknown) (unknown) (unknown) (no date) (unknown) (unknown) 20:30 06/16/22 (units unknown) (unknown) (unknown) (no date) (unknown) (unknown) 20:30 (units unknown) (unknown) (unknown) (no date) (unknown) (unknown) 20:45 06/16/22 (units unknown) (unknown) (unknown) (no date) (unknown) (unknown) 20:46 06/16/22 (units unknown) (unknown) (unknown) (no date) (unknown) (unknown) 20:46 (units unknown) (unknown) (unknown) (no date) (unknown) (unknown) 20:55 (units unknown) (unknown) (unknown) (no date) (unknown) (unknown) 20s. During admit interview patient is pleasantly confused orientated to self (units unknown) (unknown) (unknown) (no date) (unknown) (unknown) 3. UTI, acute, present on admission (units unknown) (unknown) (unknown) (no date) (unknown) (unknown) 4 mos (units unknown) (unknown) (unknown) (no date) (unknown) (unknown) 4. Encephalopathy/cogn itive impairment, unclear if this is chronic or acute, (units unknown) (unknown) (unknown) (no date) (unknown) (unknown) 5. Essential hypertension, chronic, present on admission (units unknown) (unknown) (unknown) (no date) (unknown) (unknown) 6. Atrial fibrillation, with pacemaker, on chronic Eliquis, acute on chronic, (units unknown) (unknown) (unknown) (no date) (unknown) (unknown) 7. Malnutrition, mild, acute on chronic, present on admission (units unknown) (unknown) (unknown) (no date) (unknown) (unknown) 98% on room air. Patient did get up and ambulate to the restroom w/MA without (units unknown) (unknown) (unknown) (no date) (unknown) (unknown) A1C 5.8% (units unknown) (unknown) (unknown) (no date) (unknown) (unknown) ALT 63 H (units unknown) (unknown) (unknown) (no date) (unknown) (unknown) ALT (units unknown) (unknown) (unknown) (no date) (unknown) (unknown) APTT 38 H (units unknown) (unknown) (unknown) (no date) (unknown) (unknown) APTT (units unknown) (unknown) (unknown) (no date) (unknown) (unknown) AST 61 H (units unknown) (unknown) (unknown) (no date) (unknown) (unknown) AST (units unknown) (unknown) (unknown) (no date) (unknown) (unknown) Abdomen: Soft nontender, negative for organomegaly, or masses. Bowel sounds (units unknown) (unknown) (unknown) (no date) (unknown) (unknown) Addendum Documented By: Hawa Michael (units unknown) (unknown) (unknown) (no date) (unknown) (unknown) Addendum Signed By: <Electronically signed by Hawa PEÑA Da (units unknown) (unknown) (unknown) (no date) (unknown) (unknown) Age/Sex: 86 / M (units unknown) (unknown) (unknown) (no date) (unknown) (unknown) Albumin 3.1 L (units unknown) (unknown) (unknown) (no date) (unknown) (unknown) Albumin (units unknown) (unknown) (unknown) (no date) (unknown) (unknown) Albumin/Globulin Ratio 1.1 (units unknown) (unknown) (unknown) (no date) (unknown) (unknown) Albumin/Globulin Ratio (units unknown) (unknown) (unknown) (no date) (unknown) (unknown) Alkaline Phosphatase 428 H (units unknown) (unknown) (unknown) (no date) (unknown) (unknown) Alkaline Phosphatase (units unknown) (unknown) (unknown) (no date) (unknown) (unknown) Allergies (units unknown) (unknown) (unknown) (no date) (unknown) (unknown) Allergy/AdvReac Type Severity Reaction Status Date / Time (units unknown) (unknown) (unknown) (no date) (unknown) (unknown) Assessment + Plan narrative: (units unknown) (unknown) (unknown) (no date) (unknown) (unknown) Assessment + Plan (units unknown) (unknown) (unknown) (no date) (unknown) (unknown) Asthma (units unknown) (unknown) (unknown) (no date) (unknown) (unknown) Atrial fibrillation (units unknown) (unknown) (unknown) (no date) (unknown) (unknown) BUN 34 H (units unknown) (unknown) (unknown) (no date) (unknown) (unknown) BUN (units unknown) (unknown) (unknown) (no date) (unknown) (unknown) BUN/Creatinine Ratio 34.3 H (units unknown) (unknown) (unknown) (no date) (unknown) (unknown) BUN/Creatinine Ratio (units unknown) (unknown) (unknown) (no date) (unknown) (unknown) Based on further findings-have stopped Eliquis, and consideration should be (units unknown) (unknown) (unknown) (no date) (unknown) (unknown) Baso # (Auto) 100 (units unknown) (unknown) (unknown) (no date) (unknown) (unknown) Baso # (Auto) (units unknown) (unknown) (unknown) (no date) (unknown) (unknown) Baso % (Auto) 0.8 (units unknown) (unknown) (unknown) (no date) (unknown) (unknown) Baso % (Auto) (units unknown) (unknown) (unknown) (no date) (unknown) (unknown) Blood Pressure 141/57 H (units unknown) (unknown) (unknown) (no date) (unknown) (unknown) Blood Pressure 141/73 H (units unknown) (unknown) (unknown) (no date) (unknown) (unknown) Blood Pressure 142/65 H 156/70 H (units unknown) (unknown) (unknown) (no date) (unknown) (unknown) Blood Pressure 142/67 H (units unknown) (unknown) (unknown) (no date) (unknown) (unknown) Blood Pressure 143/67 H (units unknown) (unknown) (unknown) (no date) (unknown) (unknown) Blood Pressure 145/69 H (units unknown) (unknown) (unknown) (no date) (unknown) (unknown) Blood Pressure 146/69 H (units unknown) (unknown) (unknown) (no date) (unknown) (unknown) Blood Pressure 147/71 H 150/72 H (units unknown) (unknown) (unknown) (no date) (unknown) (unknown) Blood Pressure 149/68 H 130/59 L (units unknown) (unknown) (unknown) (no date) (unknown) (unknown) Blood Pressure 149/78 H 155/70 H (units unknown) (unknown) (unknown) (no date) (unknown) (unknown) Blood Pressure 150/73 H (units unknown) (unknown) (unknown) (no date) (unknown) (unknown) Blood Pressure 151/72 H (units unknown) (unknown) (unknown) (no date) (unknown) (unknown) Blood Pressure 154/73 H (units unknown) (unknown) (unknown) (no date) (unknown) (unknown) Blood Pressure 156/72 H 151/72 H (units unknown) (unknown) (unknown) (no date) (unknown) (unknown) Blood Pressure 162/114 H (units unknown) (unknown) (unknown) (no date) (unknown) (unknown) Blood Pressure 164/94 H 164/96 H (units unknown) (unknown) (unknown) (no date) (unknown) (unknown) Blood Pressure 179/74 H 179/94 H (units unknown) (unknown) (unknown) (no date) (unknown) (unknown) Blood Pressure 186/112 H 169/75 H (units unknown) (unknown) (unknown) (no date) (unknown) (unknown) Blood Pressure (units unknown) (unknown) (unknown) (no date) (unknown) (unknown) CK-MB (CK-2) Rel Index TNP (units unknown) (unknown) (unknown) (no date) (unknown) (unknown) CK-MB (CK-2) Rel Index (units unknown) (unknown) (unknown) (no date) (unknown) (unknown) CK-MB (CK-2) TNP (units unknown) (unknown) (unknown) (no date) (unknown) (unknown) CK-MB (CK-2) (units unknown) (unknown) (unknown) (no date) (unknown) (unknown) COVID PCR: Negative (units unknown) (unknown) (unknown) (no date) (unknown) (unknown) COVID, influenza a/B/RSV negative (units unknown) (unknown) (unknown) (no date) (unknown) (unknown) Calcium 8.1 L (units unknown) (unknown) (unknown) (no date) (unknown) (unknown) Calcium (units unknown) (unknown) (unknown) (no date) (unknown) (unknown) Carbon Dioxide 28 (units unknown) (unknown) (unknown) (no date) (unknown) (unknown) Carbon Dioxide (units unknown) (unknown) (unknown) (no date) (unknown) (unknown) Cardio: regular rate and rhythm without murmur, rubs, or gallops, no carotid (units unknown) (unknown) (unknown) (no date) (unknown) (unknown) Chest: Equal expansion, positive kyphoscoliosis, no nasal flaring, retractions, (units unknown) (unknown) (unknown) (no date) (unknown) (unknown) Chief complaint: Pain near pacemaker (units unknown) (unknown) (unknown) (no date) (unknown) (unknown) Chloride 99 (units unknown) (unknown) (unknown) (no date) (unknown) (unknown) Chloride (units unknown) (unknown) (unknown) (no date) (unknown) (unknown) Chronic anticoagulation (units unknown) (unknown) (unknown) (no date) (unknown) (unknown) Code status:Full (units unknown) (unknown) (unknown) (no date) (unknown) (unknown) Creatinine 0.99 (units unknown) (unknown) (unknown) (no date) (unknown) (unknown) Creatinine (units unknown) (unknown) (unknown) (no date) (unknown) (unknown) Critical Care time: (units unknown) (unknown) (unknown) (no date) (unknown) (unknown) : 1935 Acct:[id number] (units unknown) (unknown) (unknown) (no date) (unknown) (unknown) DVT/VTE prophylaxis: Eliquis, and SCDs (units unknown) (unknown) (unknown) (no date) (unknown) (unknown) Date Patient Seen: 06/16/22 (units unknown) (unknown) (unknown) (no date) (unknown) (unknown) Date of Service: 06/16/22 (units unknown) (unknown) (unknown) (no date) (unknown) (unknown) Disposition: Patient admitted to acute care for evaluation and treatment of (units unknown) (unknown) (unknown) (no date) (unknown) (unknown) Yoseph Cardoso is a 86-year-old male with a history of atrial fibrillation, with (units unknown) (unknown) (unknown) (no date) (unknown) (unknown) Due to patient's cognitive impairment/encephal opathy unable to obtain HPI, ROS, (units unknown) (unknown) (unknown) (no date) (unknown) (unknown) Environment (units unknown) (unknown) (unknown) (no date) (unknown) (unknown) Eos # (Auto) 0 (units unknown) (unknown) (unknown) (no date) (unknown) (unknown) Eos # (Auto) (units unknown) (unknown) (unknown) (no date) (unknown) (unknown) Eos % (Auto) 0.1 L (units unknown) (unknown) (unknown) (no date) (unknown) (unknown) Eos % (Auto) (units unknown) (unknown) (unknown) (no date) (unknown) (unknown) Essential hypertension (units unknown) (unknown) (unknown) (no date) (unknown) (unknown) Estimated GFR > 60 (units unknown) (unknown) (unknown) (no date) (unknown) (unknown) Estimated GFR (units unknown) (unknown) (unknown) (no date) (unknown) (unknown) Exam Narrative: (units unknown) (unknown) (unknown) (no date) (unknown) (unknown) Exam (units unknown) (unknown) (unknown) (no date) (unknown) (unknown) Family + Social History (units unknown) (unknown) (unknown) (no date) (unknown) (unknown) Family History (units unknown) (unknown) (unknown) (no date) (unknown) (unknown) Father Diabetes mellitus (units unknown) (unknown) (unknown) (no date) (unknown) (unknown) Feels Safe in Current Yes, patient lives at home with his . (units unknown) (unknown) (unknown) (no date) (unknown) (unknown) Full range of motion intact radial and pedal pulses are normal. (units unknown) (unknown) (unknown) (no date) (unknown) (unknown) General: Patient is a pleasantly confused cachectic, frail, elderly male, in no (units unknown) (unknown) (unknown) (no date) (unknown) (unknown) Globulin 2.7 (units unknown) (unknown) (unknown) (no date) (unknown) (unknown) Globulin (units unknown) (unknown) (unknown) (no date) (unknown) (unknown) Glucose 146 H (units unknown) (unknown) (unknown) (no date) (unknown) (unknown) Glucose (units unknown) (unknown) (unknown) (no date) (unknown) (unknown) HEENT: Normocephalic, atraumatic, extraocular muscles intact, oral pharynx is (units unknown) (unknown) (unknown) (no date) (unknown) (unknown) Hct 46.6 (units unknown) (unknown) (unknown) (no date) (unknown) (unknown) Hct (units unknown) (unknown) (unknown) (no date) (unknown) (unknown) Head CT negative. CXR ?Possible mild right and retrocardiac opacities Chest CT (units unknown) (unknown) (unknown) (no date) (unknown) (unknown) Hgb 15.4 (units unknown) (unknown) (unknown) (no date) (unknown) (unknown) Hgb (units unknown) (unknown) (unknown) (no date) (unknown) (unknown) History + Physical Report (units unknown) (unknown) (unknown) (no date) (unknown) (unknown) History of Present Illness (units unknown) (unknown) (unknown) (no date) (unknown) (unknown) History of melanoma (units unknown) (unknown) (unknown) (no date) (unknown) (unknown) History of permanent cardiac pacemaker placement (units unknown) (unknown) (unknown) (no date) (unknown) (unknown) History (units unknown) (unknown) (unknown) (no date) (unknown) (unknown) Home Medications and Allergies (units unknown) (unknown) (unknown) (no date) (unknown) (unknown) Home Medications (units unknown) (unknown) (unknown) (no date) (unknown) (unknown) I confirmed that the patient's advanced care plan is present, Code status is (units unknown) (unknown) (unknown) (no date) (unknown) (unknown) I have personally reviewed patient's chart notes from PCP, specialists, (units unknown) (unknown) (unknown) (no date) (unknown) (unknown) I have utilized all available immediate resources to obtain, update, or review (units unknown) (unknown) (unknown) (no date) (unknown) (unknown) I spent a total of [] minutes of critical care time on this patient's care (units unknown) (unknown) (unknown) (no date) (unknown) (unknown) INR 1.5 H (units unknown) (unknown) (unknown) (no date) (unknown) (unknown) INR (units unknown) (unknown) (unknown) (no date) (unknown) (unknown) Influenza A (RT-PCR) Flu a negative (units unknown) (unknown) (unknown) (no date) (unknown) (unknown) Influenza A (RT-PCR) (units unknown) (unknown) (unknown) (no date) (unknown) (unknown) Influenza B (RT-PCR) Flu b negative (units unknown) (unknown) (unknown) (no date) (unknown) (unknown) Influenza B (RT-PCR) (units unknown) (unknown) (unknown) (no date) (unknown) (unknown) [address] [address] (units unknown) (unknown) (unknown) (no date) (unknown) (unknown) Laboratory Results - last 24 hr (units unknown) (unknown) (unknown) (no date) (unknown) (unknown) Labs (units unknown) (unknown) (unknown) (no date) (unknown) (unknown) Labs: (units unknown) (unknown) (unknown) (no date) (unknown) (unknown) Lactate 2.7 H (units unknown) (unknown) (unknown) (no date) (unknown) (unknown) Lactate 4.3 H* (units unknown) (unknown) (unknown) (no date) (unknown) (unknown) Lactate (units unknown) (unknown) (unknown) (no date) (unknown) (unknown) Lipase 45 (units unknown) (unknown) (unknown) (no date) (unknown) (unknown) Lipase (units unknown) (unknown) (unknown) (no date) (unknown) (unknown) Lungs: Auscultation of all lung troy are clear without adventitious sounds, (units unknown) (unknown) (unknown) (no date) (unknown) (unknown) Lymph # (Auto) 400 L (units unknown) (unknown) (unknown) (no date) (unknown) (unknown) Lymph # (Auto) (units unknown) (unknown) (unknown) (no date) (unknown) (unknown) Lymph % (Auto) 4.6 L (units unknown) (unknown) (unknown) (no date) (unknown) (unknown) Lymph % (Auto) (units unknown) (unknown) (unknown) (no date) (unknown) (unknown) MCH 30.4 (units unknown) (unknown) (unknown) (no date) (unknown) (unknown) MCH (units unknown) (unknown) (unknown) (no date) (unknown) (unknown) MCHC 33.0 (units unknown) (unknown) (unknown) (no date) (unknown) (unknown) MCHC (units unknown) (unknown) (unknown) (no date) (unknown) (unknown) MCV 92.4 (units unknown) (unknown) (unknown) (no date) (unknown) (unknown) MCV (units unknown) (unknown) (unknown) (no date) (unknown) (unknown) Magnesium 2.6 H (units unknown) (unknown) (unknown) (no date) (unknown) (unknown) Magnesium (units unknown) (unknown) (unknown) (no date) (unknown) (unknown) Medical History (Updated 06/17/22 @ 00:55 [facility] (units unknown) (unknown) (unknown) (no date) (unknown) (unknown) Medication Instructions Recorded Confirmed Type (units unknown) (unknown) (unknown) (no date) (unknown) (unknown) Meds (units unknown) (unknown) (unknown) (no date) (unknown) (unknown) [place] # (Auto) 900 (units unknown) (unknown) (unknown) (no date) (unknown) (unknown) [place] # (Auto) (units unknown) (unknown) (unknown) (no date) (unknown) (unknown) [place] % (Auto) 9.4 (units unknown) (unknown) (unknown) (no date) (unknown) (unknown) [place] % (Auto) (units unknown) (unknown) (unknown) (no date) (unknown) (unknown) Mother No problems noted. (units unknown) (unknown) (unknown) (no date) (unknown) (unknown) Musculoskeletal: Diffuse but equal throughout all extremity muscle wasting, no (units unknown) (unknown) (unknown) (no date) (unknown) (unknown) NT-Pro-B Natriuret Pep 1430 H (units unknown) (unknown) (unknown) (no date) (unknown) (unknown) NT-Pro-B Natriuret Pep (units unknown) (unknown) (unknown) (no date) (unknown) (unknown) Narrative (units unknown) (unknown) (unknown) (no date) (unknown) (unknown) Narrative: (units unknown) (unknown) (unknown) (no date) (unknown) (unknown) Negative for JVD (units unknown) (unknown) (unknown) (no date) (unknown) (unknown) Neuro: Alert and orientated x2 Person + Place , moves all extremities, (units unknown) (unknown) (unknown) (no date) (unknown) (unknown) Neut # (Auto) 8200 H (units unknown) (unknown) (unknown) (no date) (unknown) (unknown) Neut # (Auto) (units unknown) (unknown) (unknown) (no date) (unknown) (unknown) Neut % (Auto) 85.1 H (units unknown) (unknown) (unknown) (no date) (unknown) (unknown) Neut % (Auto) (units unknown) (unknown) (unknown) (no date) (unknown) (unknown) Objective (units unknown) (unknown) (unknown) (no date) (unknown) (unknown) Oxygen Delivery Method Room Air (units unknown) (unknown) (unknown) (no date) (unknown) (unknown) Oxygen Delivery Method (units unknown) (unknown) (unknown) (no date) (unknown) (unknown) PT 17.6 H (units unknown) (unknown) (unknown) (no date) (unknown) (unknown) PT (units unknown) (unknown) (unknown) (no date) (unknown) (unknown) Pacemaker (units unknown) (unknown) (unknown) (no date) (unknown) (unknown) Patient History (units unknown) (unknown) (unknown) (no date) (unknown) (unknown) Patient: Yoseph Cardoso MR#: [id number] (units unknown) (unknown) (unknown) (no date) (unknown) (unknown) Phosphorus 4.1 H (units unknown) (unknown) (unknown) (no date) (unknown) (unknown) Phosphorus (units unknown) (unknown) (unknown) (no date) (unknown) (unknown) Plt Count 222 (units unknown) (unknown) (unknown) (no date) (unknown) (unknown) Plt Count (units unknown) (unknown) (unknown) (no date) (unknown) (unknown) Potassium 4.8 (units unknown) (unknown) (unknown) (no date) (unknown) (unknown) Potassium (units unknown) (unknown) (unknown) (no date) (unknown) (unknown) Procalcitonin 3.27 H (units unknown) (unknown) (unknown) (no date) (unknown) (unknown) Procalcitonin (units unknown) (unknown) (unknown) (no date) (unknown) (unknown) Provider: Hawa Michael (units unknown) (unknown) (unknown) (no date) (unknown) (unknown) Psych: Patient has a well-kept appearance, pleasant affect, mental status (units unknown) (unknown) (unknown) (no date) (unknown) (unknown) Pulse Oximetry 93 100 (units unknown) (unknown) (unknown) (no date) (unknown) (unknown) Pulse Oximetry 94 96 (units unknown) (unknown) (unknown) (no date) (unknown) (unknown) Pulse Oximetry 95 (units unknown) (unknown) (unknown) (no date) (unknown) (unknown) Pulse Oximetry 96 91 (units unknown) (unknown) (unknown) (no date) (unknown) (unknown) Pulse Oximetry 96 99 (units unknown) (unknown) (unknown) (no date) (unknown) (unknown) Pulse Oximetry 96 (units unknown) (unknown) (unknown) (no date) (unknown) (unknown) Pulse Oximetry 97 96 97 (units unknown) (unknown) (unknown) (no date) (unknown) (unknown) Pulse Oximetry 97 97 98 (units unknown) (unknown) (unknown) (no date) (unknown) (unknown) Pulse Oximetry 97 97 (units unknown) (unknown) (unknown) (no date) (unknown) (unknown) Pulse Oximetry 97 (units unknown) (unknown) (unknown) (no date) (unknown) (unknown) Pulse Oximetry 98 97 (units unknown) (unknown) (unknown) (no date) (unknown) (unknown) Pulse Oximetry 98 (units unknown) (unknown) (unknown) (no date) (unknown) (unknown) Pulse Oximetry (units unknown) (unknown) (unknown) (no date) (unknown) (unknown) Pulse Rate 111 H (units unknown) (unknown) (unknown) (no date) (unknown) (unknown) Pulse Rate 114 H 118 H (units unknown) (unknown) (unknown) (no date) (unknown) (unknown) Pulse Rate 154 H (units unknown) (unknown) (unknown) (no date) (unknown) (unknown) Pulse Rate 72 66 (units unknown) (unknown) (unknown) (no date) (unknown) (unknown) Pulse Rate 72 71 (units unknown) (unknown) (unknown) (no date) (unknown) (unknown) Pulse Rate 72 74 (units unknown) (unknown) (unknown) (no date) (unknown) (unknown) Pulse Rate 72 (units unknown) (unknown) (unknown) (no date) (unknown) (unknown) Pulse Rate 73 74 (units unknown) (unknown) (unknown) (no date) (unknown) (unknown) Pulse Rate 73 87 98 H (units unknown) (unknown) (unknown) (no date) (unknown) (unknown) Pulse Rate 73 (units unknown) (unknown) (unknown) (no date) (unknown) (unknown) Pulse Rate 74 104 H 106 H (units unknown) (unknown) (unknown) (no date) (unknown) (unknown) Pulse Rate 75 116 H (units unknown) (unknown) (unknown) (no date) (unknown) (unknown) Pulse Rate 75 70 (units unknown) (unknown) (unknown) (no date) (unknown) (unknown) Pulse Rate 75 74 74 (units unknown) (unknown) (unknown) (no date) (unknown) (unknown) Pulse Rate 75 (units unknown) (unknown) (unknown) (no date) (unknown) (unknown) Pulse Rate 76 (units unknown) (unknown) (unknown) (no date) (unknown) (unknown) Pulse Rate 78 75 (units unknown) (unknown) (unknown) (no date) (unknown) (unknown) Pulse Rate 84 77 (units unknown) (unknown) (unknown) (no date) (unknown) (unknown) Pulse Rate 86 72 (units unknown) (unknown) (unknown) (no date) (unknown) (unknown) Pulse Rate 98 H (units unknown) (unknown) (unknown) (no date) (unknown) (unknown) RBC 5.05 (units unknown) (unknown) (unknown) (no date) (unknown) (unknown) RBC (units unknown) (unknown) (unknown) (no date) (unknown) (unknown) RDW 14.4 (units unknown) (unknown) (unknown) (no date) (unknown) (unknown) RDW (units unknown) (unknown) (unknown) (no date) (unknown) (unknown) RSV (PCR) Negative (units unknown) (unknown) (unknown) (no date) (unknown) (unknown) RSV (PCR) (units unknown) (unknown) (unknown) (no date) (unknown) (unknown) Respiratory Rate 12 25 H (units unknown) (unknown) (unknown) (no date) (unknown) (unknown) Respiratory Rate 13 26 H (units unknown) (unknown) (unknown) (no date) (unknown) (unknown) Respiratory Rate 16 20 (units unknown) (unknown) (unknown) (no date) (unknown) (unknown) Respiratory Rate 17 26 H (units unknown) (unknown) (unknown) (no date) (unknown) (unknown) Respiratory Rate 17 (units unknown) (unknown) (unknown) (no date) (unknown) (unknown) Respiratory Rate 18 32 H (units unknown) (unknown) (unknown) (no date) (unknown) (unknown) Respiratory Rate 18 (units unknown) (unknown) (unknown) (no date) (unknown) (unknown) Respiratory Rate 19 18 (units unknown) (unknown) (unknown) (no date) (unknown) (unknown) Respiratory Rate 19 34 H 39 H (units unknown) (unknown) (unknown) (no date) (unknown) (unknown) Respiratory Rate 19 (units unknown) (unknown) (unknown) (no date) (unknown) (unknown) Respiratory Rate 20 (units unknown) (unknown) (unknown) (no date) (unknown) (unknown) Respiratory Rate 22 20 (units unknown) (unknown) (unknown) (no date) (unknown) (unknown) Respiratory Rate 23 17 16 (units unknown) (unknown) (unknown) (no date) (unknown) (unknown) Respiratory Rate 23 18 (units unknown) (unknown) (unknown) (no date) (unknown) (unknown) Respiratory Rate 24 19 (units unknown) (unknown) (unknown) (no date) (unknown) (unknown) Respiratory Rate 24 23 (units unknown) (unknown) (unknown) (no date) (unknown) (unknown) Respiratory Rate 27 H (units unknown) (unknown) (unknown) (no date) (unknown) (unknown) Respiratory Rate 29 H (units unknown) (unknown) (unknown) (no date) (unknown) (unknown) Respiratory Rate 30 H 24 (units unknown) (unknown) (unknown) (no date) (unknown) (unknown) Respiratory Rate (units unknown) (unknown) (unknown) (no date) (unknown) (unknown) Review of Systems (units unknown) (unknown) (unknown) (no date) (unknown) (unknown) SARS-CoV-2 (PCR) Negative (units unknown) (unknown) (unknown) (no date) (unknown) (unknown) SARS-CoV-2 (PCR) (units unknown) (unknown) (unknown) (no date) (unknown) (unknown) Safety + Behavioral: (units unknown) (unknown) (unknown) (no date) (unknown) (unknown) Signed By:<Electronically signed by Hawa Michael> (units unknown) (unknown) (unknown) (no date) (unknown) (unknown) Skin: Warm Very dry, poor turgor, appears significantly dehydrated and wasting (units unknown) (unknown) (unknown) (no date) (unknown) (unknown) Smoking Status never (units unknown) (unknown) (unknown) (no date) (unknown) (unknown) Sodium 135 L (units unknown) (unknown) (unknown) (no date) (unknown) (unknown) Sodium (units unknown) (unknown) (unknown) (no date) (unknown) (unknown) Substance Use Type does not use (units unknown) (unknown) (unknown) (no date) (unknown) (unknown) Surgical History (Updated 06/16/22 @ 21:27 by Hawa Michael [facility]) (units unknown) (unknown) (unknown) (no date) (unknown) (unknown) Surrogate decision maker: Aletha Cardoso (units unknown) (unknown) (unknown) (no date) (unknown) (unknown) Temperature 98.1 F (units unknown) (unknown) (unknown) (no date) (unknown) (unknown) Temperature (units unknown) (unknown) (unknown) (no date) (unknown) (unknown) This increases the difficulty in complexity of medical management and increases (units unknown) (unknown) (unknown) (no date) (unknown) (unknown) Time Patient Seen: 15:35 (units unknown) (unknown) (unknown) (no date) (unknown) (unknown) Time Spent With Patient (units unknown) (unknown) (unknown) (no date) (unknown) (unknown) Tobacco + Substance use: (units unknown) (unknown) (unknown) (no date) (unknown) (unknown) Total Bilirubin 2.1 H (units unknown) (unknown) (unknown) (no date) (unknown) (unknown) Total Bilirubin (units unknown) (unknown) (unknown) (no date) (unknown) (unknown) Total Creatine Kinase 53 L (units unknown) (unknown) (unknown) (no date) (unknown) (unknown) Total Creatine Kinase (units unknown) (unknown) (unknown) (no date) (unknown) (unknown) Total Protein 5.8 L (units unknown) (unknown) (unknown) (no date) (unknown) (unknown) Total Protein (units unknown) (unknown) (unknown) (no date) (unknown) (unknown) Troponin I < 0.012 (units unknown) (unknown) (unknown) (no date) (unknown) (unknown) Troponin I (units unknown) (unknown) (unknown) (no date) (unknown) (unknown) Upon admit BP 149/78, tachycardic heart rate 154, tachypneic R 29, O2 saturation (units unknown) (unknown) (unknown) (no date) (unknown) (unknown) Ur Bilirubin Confirm Positive H (units unknown) (unknown) (unknown) (no date) (unknown) (unknown) Ur Bilirubin Confirm (units unknown) (unknown) (unknown) (no date) (unknown) (unknown) Ur Culture Indicated? Specimen cultured (units unknown) (unknown) (unknown) (no date) (unknown) (unknown) Ur Culture Indicated? (units unknown) (unknown) (unknown) (no date) (unknown) (unknown) Ur Leukocyte Esterase Trace H (units unknown) (unknown) (unknown) (no date) (unknown) (unknown) Ur Leukocyte Esterase (units unknown) (unknown) (unknown) (no date) (unknown) (unknown) Ur Specific [place] 1.020 (units unknown) (unknown) (unknown) (no date) (unknown) (unknown) Ur Specific [place] (units unknown) (unknown) (unknown) (no date) (unknown) (unknown) Ur Squamous Epith Cells 1-5 /hpf (units unknown) (unknown) (unknown) (no date) (unknown) (unknown) Ur Squamous Epith Cells (units unknown) (unknown) (unknown) (no date) (unknown) (unknown) Urine Appearance Cloudy (units unknown) (unknown) (unknown) (no date) (unknown) (unknown) Urine Appearance (units unknown) (unknown) (unknown) (no date) (unknown) (unknown) Urine Bacteria None seen (units unknown) (unknown) (unknown) (no date) (unknown) (unknown) Urine Bacteria (units unknown) (unknown) (unknown) (no date) (unknown) (unknown) Urine Bilirubin 3+ H (units unknown) (unknown) (unknown) (no date) (unknown) (unknown) Urine Bilirubin (units unknown) (unknown) (unknown) (no date) (unknown) (unknown) Urine Color Brown (units unknown) (unknown) (unknown) (no date) (unknown) (unknown) Urine Color (units unknown) (unknown) (unknown) (no date) (unknown) (unknown) Urine Glucose (UA) Negative (units unknown) (unknown) (unknown) (no date) (unknown) (unknown) Urine Glucose (UA) (units unknown) (unknown) (unknown) (no date) (unknown) (unknown) Urine Ketones 1+ H (units unknown) (unknown) (unknown) (no date) (unknown) (unknown) Urine Ketones (units unknown) (unknown) (unknown) (no date) (unknown) (unknown) Urine Nitrate Positive H (units unknown) (unknown) (unknown) (no date) (unknown) (unknown) Urine Nitrate (units unknown) (unknown) (unknown) (no date) (unknown) (unknown) Urine Occult Blood Trace-intact (units unknown) (unknown) (unknown) (no date) (unknown) (unknown) Urine Occult Blood (units unknown) (unknown) (unknown) (no date) (unknown) (unknown) Urine Protein 1+ H (units unknown) (unknown) (unknown) (no date) (unknown) (unknown) Urine Protein (units unknown) (unknown) (unknown) (no date) (unknown) (unknown) Urine RBC 10-30/hpf H (units unknown) (unknown) (unknown) (no date) (unknown) (unknown) Urine RBC (units unknown) (unknown) (unknown) (no date) (unknown) (unknown) Urine Urobilinogen 1.0 (units unknown) (unknown) (unknown) (no date) (unknown) (unknown) Urine Urobilinogen (units unknown) (unknown) (unknown) (no date) (unknown) (unknown) Urine WBC 1-5/hpf (units unknown) (unknown) (unknown) (no date) (unknown) (unknown) Urine WBC (units unknown) (unknown) (unknown) (no date) (unknown) (unknown) Urine pH 6.5 (units unknown) (unknown) (unknown) (no date) (unknown) (unknown) Urine pH (units unknown) (unknown) (unknown) (no date) (unknown) (unknown) Vital Signs (units unknown) (unknown) (unknown) (no date) (unknown) (unknown) WBC 9.6 (units unknown) (unknown) (unknown) (no date) (unknown) (unknown) WBC (units unknown) (unknown) (unknown) (no date) (unknown) (unknown) [Embedded Image Not Available] (units unknown) (unknown) (unknown) (no date) (unknown) (unknown) [From Prevnar] and feet x (units unknown) (unknown) (unknown) (no date) (unknown) (unknown) a recent 30 lb weight loss, and night sweats with a shuffling gait x6 weeks. He (units unknown) (unknown) (unknown) (no date) (unknown) (unknown) after. (units unknown) (unknown) (unknown) (no date) (unknown) (unknown) albumin 3.1, CK 53, initial troponin negative, BNP 1430. EKG atrial sensed (units unknown) (unknown) (unknown) (no date) (unknown) (unknown) alcohol intake frequency a few times a month (units unknown) (unknown) (unknown) (no date) (unknown) (unknown) also nonspecific and the differential also includes neoplastic processes as well (units unknown) (unknown) (unknown) (no date) (unknown) (unknown) amlodipine 5 mg tablet 5 mg PO DAILY 06/16/22 06/16/22 History (units unknown) (unknown) (unknown) (no date) (unknown) (unknown) and intact without rashes, ulcerations or petechiae. (units unknown) (unknown) (unknown) (no date) (unknown) (unknown) and place, but a very poor historian, stated that 'he came in today by himself (units unknown) (unknown) (unknown) (no date) (unknown) (unknown) and surgical interventions and increases the chances of poor outcomes such as (units unknown) (unknown) (unknown) (no date) (unknown) (unknown) antibiotics for treatment of UTI, monitoring intermittent uncontrolled atrial (units unknown) (unknown) (unknown) (no date) (unknown) (unknown) apixaban 5 mg tablet (Eliquis) 5 mg PO BID blood thinner 06/16/22 06/16/22 (units unknown) (unknown) (unknown) (no date) (unknown) (unknown) appears is no distress at this time, no apparent jaundice, right upper quadrant (units unknown) (unknown) (unknown) (no date) (unknown) (unknown) are present in all 4 quadrants without guarding or rebound, no CVA tenderness. (units unknown) (unknown) (unknown) (no date) (unknown) (unknown) as infectious etiologies such as micro abscesses (units unknown) (unknown) (unknown) (no date) (unknown) (unknown) attitude thought context and judgment are inappropriate- confused, poor (units unknown) (unknown) (unknown) (no date) (unknown) (unknown) because he had black urine this morning'. He did not recall seeing Dr. Gillette, (units unknown) (unknown) (unknown) (no date) (unknown) (unknown) bruit, no cardiac pulsations present. (units unknown) (unknown) (unknown) (no date) (unknown) (unknown) cardiology's office due to deteriorating health concerns. patient admitted for (units unknown) (unknown) (unknown) (no date) (unknown) (unknown) cardiology's office due to his significant presentation of cachexia, weakness, (units unknown) (unknown) (unknown) (no date) (unknown) (unknown) care inpatient hospital management for sepsis, transaminitis, UTI. The patient (units unknown) (unknown) (unknown) (no date) (unknown) (unknown) clear and mucous membranes are dry. Neck is supple and symmetric, trachea is (units unknown) (unknown) (unknown) (no date) (unknown) (unknown) complications in relation to acute illness of sepsis, UTI, transaminase, high (units unknown) (unknown) (unknown) (no date) (unknown) (unknown) conjugate to of hands (units unknown) (unknown) (unknown) (no date) (unknown) (unknown) demonstrated bibasilar infiltrates versus inflammatory pulmonary opacities mild (units unknown) (unknown) (unknown) (no date) (unknown) (unknown) diagnostic imaging, and laboratory results. (units unknown) (unknown) (unknown) (no date) (unknown) (unknown) difficulty, struggles slightly with given directions. Patient has no WBC, but (units unknown) (unknown) (unknown) (no date) (unknown) (unknown) dilated. (units unknown) (unknown) (unknown) (no date) (unknown) (unknown) distress at this time. (units unknown) (unknown) (unknown) (no date) (unknown) (unknown) documented and/or surrogate decision maker is listed in the patient's medical (units unknown) (unknown) (unknown) (no date) (unknown) (unknown) fibrillation, further imaging/lab studies and surgical consult regarding (units unknown) (unknown) (unknown) (no date) (unknown) (unknown) fluticasone propionate 44 44 mcg inhalation DAILY 06/16/22 06/16/22 History (units unknown) (unknown) (unknown) (no date) (unknown) (unknown) for mild sepsis, transaminitis, UTI, encephalopathy. (units unknown) (unknown) (unknown) (no date) (unknown) (unknown) gabapentin 300 mg capsule 300 mg PO BID 06/16/22 06/16/22 History (units unknown) (unknown) (unknown) (no date) (unknown) (unknown) given to at stopping it all together. (units unknown) (unknown) (unknown) (no date) (unknown) (unknown) historian. (units unknown) (unknown) (unknown) (no date) (unknown) (unknown) home, also needs goals of care discussion. (units unknown) (unknown) (unknown) (no date) (unknown) (unknown) infection. Numerous small hypoattenuating lesions throughout the spleen are (units unknown) (unknown) (unknown) (no date) (unknown) (unknown) intake and nutrition. (units unknown) (unknown) (unknown) (no date) (unknown) (unknown) is at much higher risk for medical and surgical complications because of his (units unknown) (unknown) (unknown) (no date) (unknown) (unknown) left shiftneut 8200, initial lactate 4.3, repeat 2.7, procalcitonin 3.27, PT (units unknown) (unknown) (unknown) (no date) (unknown) (unknown) lesions throughout the liver, as well as multifocal hepatocellular carcinoma or (units unknown) (unknown) (unknown) (no date) (unknown) (unknown) loss, night sweats, shuffling gait x6 weeks. (units unknown) (unknown) (unknown) (no date) (unknown) (unknown) malaise, balance coordination issues, and concerns for neoplastic syndrome with (units unknown) (unknown) (unknown) (no date) (unknown) (unknown) malnutrition. These factors increase the difficulty and complexity of medical (units unknown) (unknown) (unknown) (no date) (unknown) (unknown) markers. (units unknown) (unknown) (unknown) (no date) (unknown) (unknown) mcg/actuation HFA aerosol inhaler (units unknown) (unknown) (unknown) (no date) (unknown) (unknown) medication reconciliation accurately. (units unknown) (unknown) (unknown) (no date) (unknown) (unknown) midline, no adenopathy, no thyroid enlargement, nontender, no masses palpated. (units unknown) (unknown) (unknown) (no date) (unknown) (unknown) mild sepsis, transaminitis, UTI, encephalopathy. This patient requires acute (units unknown) (unknown) (unknown) (no date) (unknown) (unknown) morbidity and mortality. Patient will require rehydration for sepsis, IV (units unknown) (unknown) (unknown) (no date) (unknown) (unknown) obtain HPI, ROS, or medication reconciliation. Patient denies any pain, and (units unknown) (unknown) (unknown) (no date) (unknown) (unknown) obvious deformity, crepitus, effusions, cyanosis, clubbing or edema present. (units unknown) (unknown) (unknown) (no date) (unknown) (unknown) on room air. (units unknown) (unknown) (unknown) (no date) (unknown) (unknown) opacities mild to moderate right greater than left pulmonary effusion. (units unknown) (unknown) (unknown) (no date) (unknown) (unknown) or labored breathing, mildly tachypneic. 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 Gillette (units unknown) (unknown) (unknown) (no date) (unknown) (unknown) pain, or fever. (units unknown) (unknown) (unknown) (no date) (unknown) (unknown) pneumococcal 7-valent AdvReac Intermediate swelling Verified 06/16/22 12:46 (units unknown) (unknown) (unknown) (no date) (unknown) (unknown) present on admission (units unknown) (unknown) (unknown) (no date) (unknown) (unknown) record. (units unknown) (unknown) (unknown) (no date) (unknown) (unknown) residual>500cc place Brice (units unknown) (unknown) (unknown) (no date) (unknown) (unknown) retrocardiac opacities (units unknown) (unknown) (unknown) (no date) (unknown) (unknown) sensation to touch intact, no gross deficits noted of cranial nerves. (units unknown) (unknown) (unknown) (no date) (unknown) (unknown) sepsis UTI, and transaminitis, expected length of stay greater than 2 midnights. (units unknown) (unknown) (unknown) (no date) (unknown) (unknown) significantly hypovolemic. (units unknown) (unknown) (unknown) (no date) (unknown) (unknown) suspicion for metastatic disease/chronic illness atrial fibrillation and HTN. (units unknown) (unknown) (unknown) (no date) (unknown) (unknown) tachycardia with heart rates 111-154, and tachypneic respiratory rate in the (units unknown) (unknown) (unknown) (no date) (unknown) (unknown) the chances poor outcomes such as mortality and morbidity as well as impaired (units unknown) (unknown) (unknown) (no date) (unknown) (unknown) the patient's current medications. (units unknown) (unknown) (unknown) (no date) (unknown) (unknown) to moderate right greater than left pulmonary effusion. SOFA:2 patient admitted (units unknown) (unknown) (unknown) (no date) (unknown) (unknown) today; this time is exclusive of procedural time. (units unknown) (unknown) (unknown) (no date) (unknown) (unknown) transaminitis-abbey p results will direct plan of care/goals for discharge, as (units unknown) (unknown) (unknown) (no date) (unknown) (unknown) unsure if this is the patient's baseline. Due to cognitive impairment unable to (units unknown) (unknown) (unknown) (no date) (unknown) (unknown) ventricular paced rhythm rate 72, abnormal. COVID, influenza a/B/RSV negative. (units unknown) (unknown) (unknown) (no date) (unknown) (unknown) verify medications in the morning (units unknown) (unknown) (unknown) (no date) (unknown) (unknown) vidson> 06/17/22 (units unknown) (unknown) (unknown) (no date) (unknown) (unknown) was brought into the ED by his . In ED patient demonstrated escalating (units unknown) (unknown) (unknown) (no date) (unknown) (unknown) well as consult evaluations by PT/OT/HEAVY EQUIPMENT SERVICE TECHNICIAN. (units unknown) (unknown) (unknown) (no date) (unknown) (unknown) wheezes, rhonchi, or rales. (units unknown) (unknown) (unknown) (no date) (unknown) (unknown) wound healing, and immune suppression. (units unknown) (unknown) Result panel 226 (unknown) (no date) (unknown) (unknown) 0 /ul (unknown) (unknown) (no date) (unknown) (unknown) 0 /ul (unknown) (unknown) (no date) (unknown) (unknown) 0.4 % (unknown) (unknown) (no date) (unknown) (unknown) 0.4 % (unknown) (unknown) (no date) (unknown) (unknown) 1100 /ul (unknown) (unknown) (no date) (unknown) (unknown) 13.3 % (unknown) (unknown) (no date) (unknown) (unknown) 14.1 % (unknown) (unknown) (no date) (unknown) (unknown) 15.1 g/dl (unknown) (unknown) (no date) (unknown) (unknown) 205 x10 3/ul (unknown) (unknown) (no date) (unknown) (unknown) 30.7 pg (unknown) (unknown) (no date) (unknown) (unknown) 33.6 % (unknown) (unknown) (no date) (unknown) (unknown) 4.92 x10 6/ul (unknown) (unknown) (no date) (unknown) (unknown) 44.9 % (unknown) (unknown) (no date) (unknown) (unknown) 600 /ul (unknown) (unknown) (no date) (unknown) (unknown) 6400 /ul (unknown) (unknown) (no date) (unknown) (unknown) 7.1 % (unknown) (unknown) (no date) (unknown) (unknown) 78.8 % (unknown) (unknown) (no date) (unknown) (unknown) 8.1 x10 3/ul (unknown) (unknown) (no date) (unknown) (unknown) 91.4 fl (unknown) Result panel 227 (unknown) (no date) (unknown) (unknown) < 9 umol/l (unknown) (unknown) (no date) (unknown) (unknown) 2.1 mmol/l (unknown) Result panel 228 (unknown) (no date) (unknown) (unknown) 362 u/l (unknown) (unknown) (no date) (unknown) (unknown) 362 u/l (unknown) Result panel 229 (unknown) (no date) (unknown) (unknown) 1.4 (units unknown) (unknown) (unknown) (no date) (unknown) (unknown) 16.5 seconds (unknown) Result panel 230 (unknown) (no date) (unknown) (unknown) 9.0 mg/dl (unknown) Result panel 231 (unknown) (no date) (unknown) (unknown) 9 mm/hr (unknown) Result panel 232 (unknown) (no date) (unknown) (unknown) 3.6 mg/dl (unknown) Result panel 233 (unknown) (no date) (unknown) (unknown) > 60 ml/min (unknown) (unknown) (no date) (unknown) (unknown) > 60 ml/min (unknown) (unknown) (no date) (unknown) (unknown) 0.89 mg/dl (unknown) (unknown) (no date) (unknown) (unknown) 1.2 (units unknown) (unknown) (unknown) (no date) (unknown) (unknown) 100 mmol/l (unknown) (unknown) (no date) (unknown) (unknown) 134 mmol/l (unknown) (unknown) (no date) (unknown) (unknown) 2.2 g/dl (unknown) (unknown) (no date) (unknown) (unknown) 2.2 mg/dl (unknown) (unknown) (no date) (unknown) (unknown) 2.6 g/dl (unknown) (unknown) (no date) (unknown) (unknown) 29 mg/dl (unknown) (unknown) (no date) (unknown) (unknown) 29 mmol/l (unknown) (unknown) (no date) (unknown) (unknown) 32.6 (units unknown) (unknown) (unknown) (no date) (unknown) (unknown) 384 u/l (unknown) (unknown) (no date) (unknown) (unknown) 4.4 mmol/l (unknown) (unknown) (no date) (unknown) (unknown) 4.8 g/dl (unknown) (unknown) (no date) (unknown) (unknown) 56 iu/l (unknown) (unknown) (no date) (unknown) (unknown) 57 iu/l (unknown) (unknown) (no date) (unknown) (unknown) 7.8 mg/dl (unknown) (unknown) (no date) (unknown) (unknown) 93 mg/dl (unknown) (unknown) (no date) (unknown) (unknown) 93 mg/dl (unknown) Result panel 234 (unknown) (no date) (unknown) (unknown) 0.015 ng/ml (unknown) (unknown) (no date) (unknown) (unknown) 0.015 ng/ml (unknown) Result panel 235 (unknown) (no date) (unknown) (unknown) 1200 pg/ml (unknown) (unknown) (no date) (unknown) (unknown) 1200 pg/ml (unknown) (unknown) (no date) (unknown) (unknown) 3.6 mg/dl (unknown) Result panel 236 (unknown) (no date) (unknown) (unknown) 1200 pg/ml (unknown) (unknown) (no date) (unknown) (unknown) 1200 pg/ml (unknown) (unknown) (no date) (unknown) (unknown) 2.46 ng/ml (unknown) (unknown) (no date) (unknown) (unknown) 2.46 ng/ml (unknown) (unknown) (no date) (unknown) (unknown) 3.6 mg/dl (unknown) Result panel 237 (unknown) (no date) (unknown) (unknown) 2.1 mmol/l (unknown) Result panel 238 (unknown) (no date) (unknown) (unknown) No growth. (units unknown) (unknown) Result panel 239 (unknown) (no date) (unknown) (unknown) (no value) (units unknown) (unknown) (unknown) (no date) (unknown) (unknown) NO GROWTH AFTER 24 HOURS (units unknown) (unknown) Result panel 240 (unknown) (no date) (unknown) (unknown) (no value) (units unknown) (unknown) (unknown) (no date) (unknown) (unknown) (past 8 hours): (units unknown) (unknown) (unknown) (no date) (unknown) (unknown) [id number] (units unknown) (unknown) (unknown) (no date) (unknown) (unknown) 06/16/22 06/16/22 06/16/22 (units unknown) (unknown) (unknown) (no date) (unknown) (unknown) 06/16/22 06/16/22 06/17/22 (units unknown) (unknown) (unknown) (no date) (unknown) (unknown) 06/17/22 06/17/22 06/17/22 (units unknown) (unknown) (unknown) (no date) (unknown) (unknown) 06/17/22 03:29 (units unknown) (unknown) (unknown) (no date) (unknown) (unknown) 06/17/22 1715 (units unknown) (unknown) (unknown) (no date) (unknown) (unknown) 06/17/22 (units unknown) (unknown) (unknown) (no date) (unknown) (unknown) 03:29 03:29 03:29 (units unknown) (unknown) (unknown) (no date) (unknown) (unknown) 06:18 (units unknown) (unknown) (unknown) (no date) (unknown) (unknown) 1. 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 Sepsis (units unknown) (unknown) (unknown) (no date) (unknown) (unknown) 21:57 21:57 03:29 (units unknown) (unknown) (unknown) (no date) (unknown) (unknown) 3. UTI (units unknown) (unknown) (unknown) (no date) (unknown) (unknown) 4. Acute metabolic encephalopathy (units unknown) (unknown) (unknown) (no date) (unknown) (unknown) 5. Essential hypertension (units unknown) (unknown) (unknown) (no date) (unknown) (unknown) 6. Atrial fibrillation (units unknown) (unknown) (unknown) (no date) (unknown) (unknown) 7. Malnutrition, severe (units unknown) (unknown) (unknown) (no date) (unknown) (unknown) 86-year-old male with history of atrial fibrillation, status post pacemaker (units unknown) (unknown) (unknown) (no date) (unknown) (unknown) ABD: Soft, NT/ND, BT present in all 4 quadrants, no organomegaly or masses (units unknown) (unknown) (unknown) (no date) (unknown) (unknown) ALT 57 H (units unknown) (unknown) (unknown) (no date) (unknown) (unknown) ALT (units unknown) (unknown) (unknown) (no date) (unknown) (unknown) AST 56 (units unknown) (unknown) (unknown) (no date) (unknown) (unknown) AST (units unknown) (unknown) (unknown) (no date) (unknown) (unknown) Age/Sex: 86 / M (units unknown) (unknown) (unknown) (no date) (unknown) (unknown) Albumin 2.6 L (units unknown) (unknown) (unknown) (no date) (unknown) (unknown) Albumin (units unknown) (unknown) (unknown) (no date) (unknown) (unknown) Albumin/Globulin Ratio 1.2 (units unknown) (unknown) (unknown) (no date) (unknown) (unknown) Albumin/Globulin Ratio (units unknown) (unknown) (unknown) (no date) (unknown) (unknown) Alkaline Phosphatase 384 H (units unknown) (unknown) (unknown) (no date) (unknown) (unknown) Alkaline Phosphatase (units unknown) (unknown) (unknown) (no date) (unknown) (unknown) [place] given there history of having a relationship with Dr. Reeder. Advised a (units unknown) (unknown) (unknown) (no date) (unknown) (unknown) Ammonia < 9 L (units unknown) (unknown) (unknown) (no date) (unknown) (unknown) Ammonia (units unknown) (unknown) (unknown) (no date) (unknown) (unknown) Amylase 59 (units unknown) (unknown) (unknown) (no date) (unknown) (unknown) Amylase (units unknown) (unknown) (unknown) (no date) (unknown) (unknown) Assessment + Plan narrative: (units unknown) (unknown) (unknown) (no date) (unknown) (unknown) Assessment + Plan (units unknown) (unknown) (unknown) (no date) (unknown) (unknown) Asthma (units unknown) (unknown) (unknown) (no date) (unknown) (unknown) Atrial fibrillation (units unknown) (unknown) (unknown) (no date) (unknown) (unknown) BUN 29 H (units unknown) (unknown) (unknown) (no date) (unknown) (unknown) BUN (units unknown) (unknown) (unknown) (no date) (unknown) (unknown) BUN/Creatinine Ratio 32.6 H (units unknown) (unknown) (unknown) (no date) (unknown) (unknown) BUN/Creatinine Ratio (units unknown) (unknown) (unknown) (no date) (unknown) (unknown) Baso # (Auto) 0 (units unknown) (unknown) (unknown) (no date) (unknown) (unknown) Baso # (Auto) (units unknown) (unknown) (unknown) (no date) (unknown) (unknown) Baso % (Auto) 0.4 (units unknown) (unknown) (unknown) (no date) (unknown) (unknown) Baso % (Auto) (units unknown) (unknown) (unknown) (no date) (unknown) (unknown) Blood Pressure 145/76 H (units unknown) (unknown) (unknown) (no date) (unknown) (unknown) Blood pressures have been moderately elevated today. He did restart amlodipine (units unknown) (unknown) (unknown) (no date) (unknown) (unknown) C-Reactive Protein 9.0 H (units unknown) (unknown) (unknown) (no date) (unknown) (unknown) C-Reactive Protein Cancelled (units unknown) (unknown) (unknown) (no date) (unknown) (unknown) C-Reactive Protein (units unknown) (unknown) (unknown) (no date) (unknown) (unknown) CHEST: Respiratory excursions symmetric, CTAB (units unknown) (unknown) (unknown) (no date) (unknown) (unknown) CV: RRR, no M/R/G (units unknown) (unknown) (unknown) (no date) (unknown) (unknown) Calcium 7.8 L (units unknown) (unknown) (unknown) (no date) (unknown) (unknown) Calcium (units unknown) (unknown) (unknown) (no date) (unknown) (unknown) Carbon Dioxide 29 (units unknown) (unknown) (unknown) (no date) (unknown) (unknown) Carbon Dioxide (units unknown) (unknown) (unknown) (no date) (unknown) (unknown) Chloride 100 (units unknown) (unknown) (unknown) (no date) (unknown) (unknown) Chloride (units unknown) (unknown) (unknown) (no date) (unknown) (unknown) Chronic anticoagulation (units unknown) (unknown) (unknown) (no date) (unknown) (unknown) Code status (units unknown) (unknown) (unknown) (no date) (unknown) (unknown) Creatinine 0.89 (units unknown) (unknown) (unknown) (no date) (unknown) (unknown) Creatinine (units unknown) (unknown) (unknown) (no date) (unknown) (unknown) Critical Care time: (units unknown) (unknown) (unknown) (no date) (unknown) (unknown) : 1935 Acct:[id number] (units unknown) (unknown) (unknown) (no date) (unknown) (unknown) Date of Service: 06/16/22 (units unknown) (unknown) (unknown) (no date) (unknown) (unknown) Deep Vein Thrombosis/Pulmonar y Embolism Present on Admission: No (units unknown) (unknown) (unknown) (no date) (unknown) (unknown) Diagnosed at [facility]. Urine culture (units unknown) (unknown) (unknown) (no date) (unknown) (unknown) Disposition (units unknown) (unknown) (unknown) (no date) (unknown) (unknown) ESR 9 (units unknown) (unknown) (unknown) (no date) (unknown) (unknown) ESR (units unknown) (unknown) (unknown) (no date) (unknown) (unknown) EXTR: warm, well perfused, no C/C/E (units unknown) (unknown) (unknown) (no date) (unknown) (unknown) Eliquis (units unknown) (unknown) (unknown) (no date) (unknown) (unknown) Eos # (Auto) 0 (units unknown) (unknown) (unknown) (no date) (unknown) (unknown) Eos # (Auto) (units unknown) (unknown) (unknown) (no date) (unknown) (unknown) Eos % (Auto) 0.4 L (units unknown) (unknown) (unknown) (no date) (unknown) (unknown) Eos % (Auto) (units unknown) (unknown) (unknown) (no date) (unknown) (unknown) Essential hypertension (units unknown) (unknown) (unknown) (no date) (unknown) (unknown) Estimated GFR > 60 (units unknown) (unknown) (unknown) (no date) (unknown) (unknown) Estimated GFR (units unknown) (unknown) (unknown) (no date) (unknown) (unknown) Exam Narrative: (units unknown) (unknown) (unknown) (no date) (unknown) (unknown) Exam (units unknown) (unknown) (unknown) (no date) (unknown) (unknown) Family History (units unknown) (unknown) (unknown) (no date) (unknown) (unknown) Father Diabetes mellitus (units unknown) (unknown) (unknown) (no date) (unknown) (unknown) Full (units unknown) (unknown) (unknown) (no date) (unknown) (unknown) GEN: Pleasant elderly male, alert and oriented x 2, somewhat forgetful, NAD (units unknown) (unknown) (unknown) (no date) (unknown) (unknown) GGT 516 H (units unknown) (unknown) (unknown) (no date) (unknown) (unknown) GGT (units unknown) (unknown) (unknown) (no date) (unknown) (unknown) Globulin 2.2 (units unknown) (unknown) (unknown) (no date) (unknown) (unknown) Globulin (units unknown) (unknown) (unknown) (no date) (unknown) (unknown) Glucose 93 (units unknown) (unknown) (unknown) (no date) (unknown) (unknown) Glucose (units unknown) (unknown) (unknown) (no date) (unknown) (unknown) HEENT:NC, Face symmetric (units unknown) (unknown) (unknown) (no date) (unknown) (unknown) Hct 44.9 (units unknown) (unknown) (unknown) (no date) (unknown) (unknown) Hct (units unknown) (unknown) (unknown) (no date) (unknown) (unknown) He did have rapid AFib yesterday this has since resolved. Continue Eliquis. He (units unknown) (unknown) (unknown) (no date) (unknown) (unknown) He is followed by Dr. Weathers at the [facility]. He did not (units unknown) (unknown) (unknown) (no date) (unknown) (unknown) He notes a history of melanoma which was resected off of his right temporal (units unknown) (unknown) (unknown) (no date) (unknown) (unknown) Hemoglobin A1c 5.8 (units unknown) (unknown) (unknown) (no date) (unknown) (unknown) Hemoglobin A1c (units unknown) (unknown) (unknown) (no date) (unknown) (unknown) Hgb 15.1 (units unknown) (unknown) (unknown) (no date) (unknown) (unknown) Hgb (units unknown) (unknown) (unknown) (no date) (unknown) (unknown) History of melanoma (units unknown) (unknown) (unknown) (no date) (unknown) (unknown) History of permanent cardiac pacemaker placement (units unknown) (unknown) (unknown) (no date) (unknown) (unknown) I spent a total of [] minutes of critical care time on this patient's care (units unknown) (unknown) (unknown) (no date) (unknown) (unknown) INR 1.4 H (units unknown) (unknown) (unknown) (no date) (unknown) (unknown) INR (units unknown) (unknown) (unknown) (no date) (unknown) (unknown) Interval history: (units unknown) (unknown) (unknown) (no date) (unknown) (unknown) [address] [address] (units unknown) (unknown) (unknown) (no date) (unknown) (unknown) Laboratory Results - last 24 hr (units unknown) (unknown) (unknown) (no date) (unknown) (unknown) Labs (units unknown) (unknown) (unknown) (no date) (unknown) (unknown) Labs: (units unknown) (unknown) (unknown) (no date) (unknown) (unknown) Lactate 2.1 (units unknown) (unknown) (unknown) (no date) (unknown) (unknown) Lactate Dehydrogenase 362 H (units unknown) (unknown) (unknown) (no date) (unknown) (unknown) Lactate Dehydrogenase (units unknown) (unknown) (unknown) (no date) (unknown) (unknown) Lactate (units unknown) (unknown) (unknown) (no date) (unknown) (unknown) Lymph # (Auto) 600 L (units unknown) (unknown) (unknown) (no date) (unknown) (unknown) Lymph # (Auto) (units unknown) (unknown) (unknown) (no date) (unknown) (unknown) Lymph % (Auto) 7.1 L (units unknown) (unknown) (unknown) (no date) (unknown) (unknown) Lymph % (Auto) (units unknown) (unknown) (unknown) (no date) (unknown) (unknown) MCH 30.7 (units unknown) (unknown) (unknown) (no date) (unknown) (unknown) MCH (units unknown) (unknown) (unknown) (no date) (unknown) (unknown) MCHC 33.6 (units unknown) (unknown) (unknown) (no date) (unknown) (unknown) MCHC (units unknown) (unknown) (unknown) (no date) (unknown) (unknown) MCV 91.4 (units unknown) (unknown) (unknown) (no date) (unknown) (unknown) MCV (units unknown) (unknown) (unknown) (no date) (unknown) (unknown) Medical History (Updated 06/17/22 @ 00:55 by CASEY Crystal) (units unknown) (unknown) (unknown) (no date) (unknown) (unknown) [place] # (Auto) 1100 H (units unknown) (unknown) (unknown) (no date) (unknown) (unknown) [place] # (Auto) (units unknown) (unknown) (unknown) (no date) (unknown) (unknown) [place] % (Auto) 13.3 (units unknown) (unknown) (unknown) (no date) (unknown) (unknown) [place] % (Auto) (units unknown) (unknown) (unknown) (no date) (unknown) (unknown) Mother No problems noted. (units unknown) (unknown) (unknown) (no date) (unknown) (unknown) NEURO: Alert and oriented x 2, nonfocal (units unknown) (unknown) (unknown) (no date) (unknown) (unknown) NT-Pro-B Natriuret Pep 1200 H (units unknown) (unknown) (unknown) (no date) (unknown) (unknown) NT-Pro-B Natriuret Pep (units unknown) (unknown) (unknown) (no date) (unknown) (unknown) Narrative (units unknown) (unknown) (unknown) (no date) (unknown) (unknown) Neut # (Auto) 6400 (units unknown) (unknown) (unknown) (no date) (unknown) (unknown) Neut # (Auto) (units unknown) (unknown) (unknown) (no date) (unknown) (unknown) Neut % (Auto) 78.8 H (units unknown) (unknown) (unknown) (no date) (unknown) (unknown) Neut % (Auto) (units unknown) (unknown) (unknown) (no date) (unknown) (unknown) Objective (units unknown) (unknown) (unknown) (no date) (unknown) (unknown) Oxygen Delivery Method Room Air (units unknown) (unknown) (unknown) (no date) (unknown) (unknown) Oxygen Flow Rate 0 (units unknown) (unknown) (unknown) (no date) (unknown) (unknown) PFSH (units unknown) (unknown) (unknown) (no date) (unknown) (unknown) PT 16.5 H (units unknown) (unknown) (unknown) (no date) (unknown) (unknown) PT (units unknown) (unknown) (unknown) (no date) (unknown) (unknown) Pacemaker (units unknown) (unknown) (unknown) (no date) (unknown) (unknown) Patient appears to have ongoing encephalopathy. Although he is more alert and (units unknown) (unknown) (unknown) (no date) (unknown) (unknown) Patient has a known history of melanoma status post resection 2 years ago. He (units unknown) (unknown) (unknown) (no date) (unknown) (unknown) Patient has evidence of severe protein calorie malnutrition. He is lost 30 lb (units unknown) (unknown) (unknown) (no date) (unknown) (unknown) Patient: Yosehp Cardoso MR#: [id number] (units unknown) (unknown) (unknown) (no date) (unknown) (unknown) Pending further determination of patient's goals of care (units unknown) (unknown) (unknown) (no date) (unknown) (unknown) Phosphorus 3.6 (units unknown) (unknown) (unknown) (no date) (unknown) (unknown) Phosphorus (units unknown) (unknown) (unknown) (no date) (unknown) (unknown) Plt Count 205 (units unknown) (unknown) (unknown) (no date) (unknown) (unknown) Plt Count (units unknown) (unknown) (unknown) (no date) (unknown) (unknown) Potassium 4.4 (units unknown) (unknown) (unknown) (no date) (unknown) (unknown) Potassium (units unknown) (unknown) (unknown) (no date) (unknown) (unknown) Procalcitonin 2.46 H (units unknown) (unknown) (unknown) (no date) (unknown) (unknown) Procalcitonin (units unknown) (unknown) (unknown) (no date) (unknown) (unknown) Progress Note (units unknown) (unknown) (unknown) (no date) (unknown) (unknown) Prophylaxis (units unknown) (unknown) (unknown) (no date) (unknown) (unknown) Provider: Roxana Parker MD (units unknown) (unknown) (unknown) (no date) (unknown) (unknown) Pulse Oximetry 97 (units unknown) (unknown) (unknown) (no date) (unknown) (unknown) Pulse Rate 70 (units unknown) (unknown) (unknown) (no date) (unknown) (unknown) Quality (units unknown) (unknown) (unknown) (no date) (unknown) (unknown) RBC 4.92 (units unknown) (unknown) (unknown) (no date) (unknown) (unknown) RBC (units unknown) (unknown) (unknown) (no date) (unknown) (unknown) RDW 14.1 (units unknown) (unknown) (unknown) (no date) (unknown) (unknown) RDW (units unknown) (unknown) (unknown) (no date) (unknown) (unknown) Respiratory Rate 16 (units unknown) (unknown) (unknown) (no date) (unknown) (unknown) SKIN: warm and dry, no rash (units unknown) (unknown) (unknown) (no date) (unknown) (unknown) Signed By:<Electronically signed by Roxana Parker MD> (units unknown) (unknown) (unknown) (no date) (unknown) (unknown) Smoking Status: Never smoker (units unknown) (unknown) (unknown) (no date) (unknown) (unknown) Social History (units unknown) (unknown) (unknown) (no date) (unknown) (unknown) Sodium 134 L (units unknown) (unknown) (unknown) (no date) (unknown) (unknown) Sodium (units unknown) (unknown) (unknown) (no date) (unknown) (unknown) Subjective (units unknown) (unknown) (unknown) (no date) (unknown) (unknown) Surgical History (Updated 06/16/22 @ 21:27 by Hawa Michael [facility]) (units unknown) (unknown) (unknown) (no date) (unknown) (unknown) Suspect this reflected SIRS rather than sepsis. However, he does have evidence (units unknown) (unknown) (unknown) (no date) (unknown) (unknown) Temperature 96.3 F L (units unknown) (unknown) (unknown) (no date) (unknown) (unknown) They did they might prefer to proceed with care at the [facility] (units unknown) (unknown) (unknown) (no date) (unknown) (unknown) Time Spent With Patient (units unknown) (unknown) (unknown) (no date) (unknown) (unknown) Today, patient reports he is feeling better overall. He does not recall being (units unknown) (unknown) (unknown) (no date) (unknown) (unknown) Total Bilirubin 2.2 H (units unknown) (unknown) (unknown) (no date) (unknown) (unknown) Total Bilirubin (units unknown) (unknown) (unknown) (no date) (unknown) (unknown) Total Protein 4.8 L (units unknown) (unknown) (unknown) (no date) (unknown) (unknown) Total Protein (units unknown) (unknown) (unknown) (no date) (unknown) (unknown) Troponin I 0.013 (units unknown) (unknown) (unknown) (no date) (unknown) (unknown) Troponin I 0.015 (units unknown) (unknown) (unknown) (no date) (unknown) (unknown) Troponin I (units unknown) (unknown) (unknown) (no date) (unknown) (unknown) Ur Bilirubin Confirm Positive H (units unknown) (unknown) (unknown) (no date) (unknown) (unknown) Ur Bilirubin Confirm (units unknown) (unknown) (unknown) (no date) (unknown) (unknown) Ur Culture Indicated? Specimen cultured (units unknown) (unknown) (unknown) (no date) (unknown) (unknown) Ur Culture Indicated? (units unknown) (unknown) (unknown) (no date) (unknown) (unknown) Ur Leukocyte Esterase Trace H (units unknown) (unknown) (unknown) (no date) (unknown) (unknown) Ur Leukocyte Esterase (units unknown) (unknown) (unknown) (no date) (unknown) (unknown) Ur Specific [place] 1.020 (units unknown) (unknown) (unknown) (no date) (unknown) (unknown) Ur Specific [place] (units unknown) (unknown) (unknown) (no date) (unknown) (unknown) Ur Squamous Epith Cells 1-5 /hpf (units unknown) (unknown) (unknown) (no date) (unknown) (unknown) Ur Squamous Epith Cells (units unknown) (unknown) (unknown) (no date) (unknown) (unknown) Urine Appearance Cloudy (units unknown) (unknown) (unknown) (no date) (unknown) (unknown) Urine Appearance (units unknown) (unknown) (unknown) (no date) (unknown) (unknown) Urine Bacteria None seen (units unknown) (unknown) (unknown) (no date) (unknown) (unknown) Urine Bacteria (units unknown) (unknown) (unknown) (no date) (unknown) (unknown) Urine Bilirubin 3+ H (units unknown) (unknown) (unknown) (no date) (unknown) (unknown) Urine Bilirubin (units unknown) (unknown) (unknown) (no date) (unknown) (unknown) Urine Color Brown (units unknown) (unknown) (unknown) (no date) (unknown) (unknown) Urine Color (units unknown) (unknown) (unknown) (no date) (unknown) (unknown) Urine Glucose (UA) Negative (units unknown) (unknown) (unknown) (no date) (unknown) (unknown) Urine Glucose (UA) (units unknown) (unknown) (unknown) (no date) (unknown) (unknown) Urine Ketones 1+ H (units unknown) (unknown) (unknown) (no date) (unknown) (unknown) Urine Ketones (units unknown) (unknown) (unknown) (no date) (unknown) (unknown) Urine Nitrate Positive H (units unknown) (unknown) (unknown) (no date) (unknown) (unknown) Urine Nitrate (units unknown) (unknown) (unknown) (no date) (unknown) (unknown) Urine Occult Blood Trace-intact (units unknown) (unknown) (unknown) (no date) (unknown) (unknown) Urine Occult Blood (units unknown) (unknown) (unknown) (no date) (unknown) (unknown) Urine Protein 1+ H (units unknown) (unknown) (unknown) (no date) (unknown) (unknown) Urine Protein (units unknown) (unknown) (unknown) (no date) (unknown) (unknown) Urine RBC 10-30/hpf H (units unknown) (unknown) (unknown) (no date) (unknown) (unknown) Urine RBC (units unknown) (unknown) (unknown) (no date) (unknown) (unknown) Urine Urobilinogen 1.0 (units unknown) (unknown) (unknown) (no date) (unknown) (unknown) Urine Urobilinogen (units unknown) (unknown) (unknown) (no date) (unknown) (unknown) Urine WBC 1-5/hpf (units unknown) (unknown) (unknown) (no date) (unknown) (unknown) Urine WBC (units unknown) (unknown) (unknown) (no date) (unknown) (unknown) Urine pH 6.5 (units unknown) (unknown) (unknown) (no date) (unknown) (unknown) Urine pH (units unknown) (unknown) (unknown) (no date) (unknown) (unknown) VTE (units unknown) (unknown) (unknown) (no date) (unknown) (unknown) Vital Signs (units unknown) (unknown) (unknown) (no date) (unknown) (unknown) WBC 8.1 (units unknown) (unknown) (unknown) (no date) (unknown) (unknown) WBC (units unknown) (unknown) (unknown) (no date) (unknown) (unknown) [place]. (units unknown) (unknown) (unknown) (no date) (unknown) (unknown) [Embedded Image Not Available] (units unknown) (unknown) (unknown) (no date) (unknown) (unknown) about their goals of care and we can pursue the appropriate option accordingly. (units unknown) (unknown) (unknown) (no date) (unknown) (unknown) above. Await dietitian recommendation. (units unknown) (unknown) (unknown) (no date) (unknown) (unknown) alcohol intake: current (units unknown) (unknown) (unknown) (no date) (unknown) (unknown) and intervention or not. I have asked his and he to have a further conversation (units unknown) (unknown) (unknown) (no date) (unknown) (unknown) appetite and intake approximately 6 weeks ago. Around the same time he (units unknown) (unknown) (unknown) (no date) (unknown) (unknown) biopsy could be done on an outpatient basis in that setting as well. (units unknown) (unknown) (unknown) (no date) (unknown) (unknown) carcinoma is also in the differential. Patient has no known history of (units unknown) (unknown) (unknown) (no date) (unknown) (unknown) change in his bowel habits. He had no nausea or vomiting simply just did not (units unknown) (unknown) (unknown) (no date) (unknown) (unknown) continue to monitor. (units unknown) (unknown) (unknown) (no date) (unknown) (unknown) developed night sweats. Did have some mild abdominal discomfort but nothing (units unknown) (unknown) (unknown) (no date) (unknown) (unknown) encephalopathy/cogn itive impairment, essential hypertension, AFib, and (units unknown) (unknown) (unknown) (no date) (unknown) (unknown) etiology such as microabscess. (units unknown) (unknown) (unknown) (no date) (unknown) (unknown) have any appetite. He is lost approximately 30 lb over the past several months. (units unknown) (unknown) (unknown) (no date) (unknown) (unknown) hepatitis. In the differential was also infectious etiology. That said, (units unknown) (unknown) (unknown) (no date) (unknown) (unknown) here is negative thus far. Continue Zosyn for now. Await culture results from (units unknown) (unknown) (unknown) (no date) (unknown) (unknown) household members: spouse (units unknown) (unknown) (unknown) (no date) (unknown) (unknown) in the emergency department. His is at bedside. He just finished eating (units unknown) (unknown) (unknown) (no date) (unknown) (unknown) includes metastatic 6 weeks. uding neoplastic process as well as infectious (units unknown) (unknown) (unknown) (no date) (unknown) (unknown) infectious or inflammatory pulmonary opacities. Hyks-wp-izmghied (units unknown) (unknown) (unknown) (no date) (unknown) (unknown) is status post pacemaker. (units unknown) (unknown) (unknown) (no date) (unknown) (unknown) liver and spleen being significantly heterogeneous. Patient underwent abdominal (units unknown) (unknown) (unknown) (no date) (unknown) (unknown) lunch and is in good spirits. He and his report onset of decreased (units unknown) (unknown) (unknown) (no date) (unknown) (unknown) malnutrition. Head CT was unrevealing. CT scan of the chest revealed bibasilar (units unknown) (unknown) (unknown) (no date) (unknown) (unknown) more likely this is malignant in nature. Discussed with the patient and his (units unknown) (unknown) (unknown) (no date) (unknown) (unknown) negative to date. He is afebrile with a normal white blood cell count. (units unknown) (unknown) (unknown) (no date) (unknown) (unknown) not appear to be able to make a decision about whether he would pursue biopsy (units unknown) (unknown) (unknown) (no date) (unknown) (unknown) now has multifocal lesions in the liver and spleen on imaging. Hepatocellular (units unknown) (unknown) (unknown) (no date) (unknown) (unknown) of UTI. He remains on empiric Zosyn therapy. Blood and urine cultures are (units unknown) (unknown) (unknown) (no date) (unknown) (unknown) oriented today, he is unable to make complex decisions at this point. Will (units unknown) (unknown) (unknown) (no date) (unknown) (unknown) over the last few months. Highly concerning for metastatic disease as noted (units unknown) (unknown) (unknown) (no date) (unknown) (unknown) patient reports a slowly progressive onset of symptoms. He is not had any ill (units unknown) (unknown) (unknown) (no date) (unknown) (unknown) pelvic CT which revealed multiple ill-defined hypoattenuating mass lesions (units unknown) (unknown) (unknown) (no date) (unknown) (unknown) placement, on chronic Eliquis, hypertension, and melanoma who was admitted (units unknown) (unknown) (unknown) (no date) (unknown) (unknown) receive any systemic treatment. He has not had any recurrence and follows with (units unknown) (unknown) (unknown) (no date) (unknown) (unknown) ljkhx-apissgu-aiex- left pleural effusions. There is additional note of the (units unknown) (unknown) (unknown) (no date) (unknown) (unknown) scalp approximately 2 years ago. He describes having had a 7 an inch incision. (units unknown) (unknown) (unknown) (no date) (unknown) (unknown) symptoms such as fevers or chills. His white blood cell count is normal. It is (units unknown) (unknown) (unknown) (no date) (unknown) (unknown) that was concerning to him overall. He reports chronic constipation but no (units unknown) (unknown) (unknown) (no date) (unknown) (unknown) the manager hospitality regularly. (units unknown) (unknown) (unknown) (no date) (unknown) (unknown) this morning. Will monitor. (units unknown) (unknown) (unknown) (no date) (unknown) (unknown) throughout the liver which was felt to be nonspecific but differential diagnosis (units unknown) (unknown) (unknown) (no date) (unknown) (unknown) today; this time is exclusive of procedural time. 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 At this time the patient does (units unknown) (unknown) (unknown) (no date) (unknown) (unknown) yesterday with sepsis without septic shock, transaminitis, UTI, (units unknown) (unknown) Result panel 241 (unknown) (no date) (unknown) (unknown) 1.8 ng/ml (unknown) (unknown) (no date) (unknown) (unknown) 1.8 ng/ml (unknown) Result panel 242 (unknown) (no date) (unknown) (unknown) 0 /ul (unknown) (unknown) (no date) (unknown) (unknown) 0.6 % (unknown) (unknown) (no date) (unknown) (unknown) 0.7 % (unknown) (unknown) (no date) (unknown) (unknown) 100 /ul (unknown) (unknown) (no date) (unknown) (unknown) 1100 /ul (unknown) (unknown) (no date) (unknown) (unknown) 14.4 % (unknown) (unknown) (no date) (unknown) (unknown) 14.9 g/dl (unknown) (unknown) (no date) (unknown) (unknown) 15.8 % (unknown) (unknown) (no date) (unknown) (unknown) 189 x10 3/ul (unknown) (unknown) (no date) (unknown) (unknown) 3.2 mg/dl (unknown) (unknown) (no date) (unknown) (unknown) 30.8 pg (unknown) (unknown) (no date) (unknown) (unknown) 33.7 % (unknown) (unknown) (no date) (unknown) (unknown) 4.83 x10 6/ul (unknown) (unknown) (no date) (unknown) (unknown) 44.2 % (unknown) (unknown) (no date) (unknown) (unknown) 500 /ul (unknown) (unknown) (no date) (unknown) (unknown) 5300 /ul (unknown) (unknown) (no date) (unknown) (unknown) 7.0 x10 3/ul (unknown) (unknown) (no date) (unknown) (unknown) 7.5 % (unknown) (unknown) (no date) (unknown) (unknown) 75.4 % (unknown) (unknown) (no date) (unknown) (unknown) 91.5 fl (unknown) Result panel 243 (unknown) (no date) (unknown) (unknown) > 60 ml/min (unknown) (unknown) (no date) (unknown) (unknown) > 60 ml/min (unknown) (unknown) (no date) (unknown) (unknown) 0.88 mg/dl (unknown) (unknown) (no date) (unknown) (unknown) 1.0 (units unknown) (unknown) (unknown) (no date) (unknown) (unknown) 104 mmol/l (unknown) (unknown) (no date) (unknown) (unknown) 138 mmol/l (unknown) (unknown) (no date) (unknown) (unknown) 2.0 mg/dl (unknown) (unknown) (no date) (unknown) (unknown) 2.4 g/dl (unknown) (unknown) (no date) (unknown) (unknown) 2.5 g/dl (unknown) (unknown) (no date) (unknown) (unknown) 22 mg/dl (unknown) (unknown) (no date) (unknown) (unknown) 25.0 (units unknown) (unknown) (unknown) (no date) (unknown) (unknown) 27 mmol/l (unknown) (unknown) (no date) (unknown) (unknown) 4.3 mmol/l (unknown) (unknown) (no date) (unknown) (unknown) 4.9 g/dl (unknown) (unknown) (no date) (unknown) (unknown) 401 u/l (unknown) (unknown) (no date) (unknown) (unknown) 52 iu/l (unknown) (unknown) (no date) (unknown) (unknown) 53 iu/l (unknown) (unknown) (no date) (unknown) (unknown) 7.6 mg/dl (unknown) (unknown) (no date) (unknown) (unknown) 82 mg/dl (unknown) (unknown) (no date) (unknown) (unknown) 82 mg/dl (unknown) Result panel 244 (unknown) (no date) (unknown) (unknown) No growth. (units unknown) (unknown) Result panel 245 (unknown) (no date) (unknown) (unknown) (no value) (units unknown) (unknown) (unknown) (no date) (unknown) (unknown) (past 8 hours): (units unknown) (unknown) (unknown) (no date) (unknown) (unknown) [id number] (units unknown) (unknown) (unknown) (no date) (unknown) (unknown) 06/16/22 06/18/22 06/18/22 (units unknown) (unknown) (unknown) (no date) (unknown) (unknown) 06/18/22 06:02 (units unknown) (unknown) (unknown) (no date) (unknown) (unknown) 06/18/22 (units unknown) (unknown) (unknown) (no date) (unknown) (unknown) 06:02 (units unknown) (unknown) (unknown) (no date) (unknown) (unknown) 06:30 06/18/22 (units unknown) (unknown) (unknown) (no date) (unknown) (unknown) 09:02 06/18/22 (units unknown) (unknown) (unknown) (no date) (unknown) (unknown) 10:13 (units unknown) (unknown) (unknown) (no date) (unknown) (unknown) 21:57 06:02 06:02 (units unknown) (unknown) (unknown) (no date) (unknown) (unknown) 86-year-old male with history of atrial fibrillation, status post pacemaker (units unknown) (unknown) (unknown) (no date) (unknown) (unknown) ALT 52 H (units unknown) (unknown) (unknown) (no date) (unknown) (unknown) ALT (units unknown) (unknown) (unknown) (no date) (unknown) (unknown) AST 53 (units unknown) (unknown) (unknown) (no date) (unknown) (unknown) AST (units unknown) (unknown) (unknown) (no date) (unknown) (unknown) Age/Sex: 86 / M (units unknown) (unknown) (unknown) (no date) (unknown) (unknown) Albumin 2.5 L (units unknown) (unknown) (unknown) (no date) (unknown) (unknown) Albumin (units unknown) (unknown) (unknown) (no date) (unknown) (unknown) Albumin/Globulin Ratio 1.0 (units unknown) (unknown) (unknown) (no date) (unknown) (unknown) Albumin/Globulin Ratio (units unknown) (unknown) (unknown) (no date) (unknown) (unknown) Alkaline Phosphatase 401 H (units unknown) (unknown) (unknown) (no date) (unknown) (unknown) Alkaline Phosphatase (units unknown) (unknown) (unknown) (no date) (unknown) (unknown) Alpha Fetoprotein 1.8 (units unknown) (unknown) (unknown) (no date) (unknown) (unknown) Alpha Fetoprotein (units unknown) (unknown) (unknown) (no date) (unknown) (unknown) Assessment + Plan (units unknown) (unknown) (unknown) (no date) (unknown) (unknown) Asthma (units unknown) (unknown) (unknown) (no date) (unknown) (unknown) Atrial fibrillation (units unknown) (unknown) (unknown) (no date) (unknown) (unknown) BUN 22 H (units unknown) (unknown) (unknown) (no date) (unknown) (unknown) BUN (units unknown) (unknown) (unknown) (no date) (unknown) (unknown) BUN/Creatinine Ratio 25.0 H (units unknown) (unknown) (unknown) (no date) (unknown) (unknown) BUN/Creatinine Ratio (units unknown) (unknown) (unknown) (no date) (unknown) (unknown) Baso # (Auto) 0 (units unknown) (unknown) (unknown) (no date) (unknown) (unknown) Baso # (Auto) (units unknown) (unknown) (unknown) (no date) (unknown) (unknown) Baso % (Auto) 0.6 (units unknown) (unknown) (unknown) (no date) (unknown) (unknown) Baso % (Auto) (units unknown) (unknown) (unknown) (no date) (unknown) (unknown) Blood Pressure 157/76 H 136/72 (units unknown) (unknown) (unknown) (no date) (unknown) (unknown) Calcium 7.6 L (units unknown) (unknown) (unknown) (no date) (unknown) (unknown) Calcium (units unknown) (unknown) (unknown) (no date) (unknown) (unknown) Carbon Dioxide 27 (units unknown) (unknown) (unknown) (no date) (unknown) (unknown) Carbon Dioxide (units unknown) (unknown) (unknown) (no date) (unknown) (unknown) Chloride 104 (units unknown) (unknown) (unknown) (no date) (unknown) (unknown) Chloride (units unknown) (unknown) (unknown) (no date) (unknown) (unknown) Chronic anticoagulation (units unknown) (unknown) (unknown) (no date) (unknown) (unknown) Creatinine 0.88 (units unknown) (unknown) (unknown) (no date) (unknown) (unknown) Creatinine (units unknown) (unknown) (unknown) (no date) (unknown) (unknown) Critical Care time: (units unknown) (unknown) (unknown) (no date) (unknown) (unknown) : 1935 Acct:[id number] (units unknown) (unknown) (unknown) (no date) (unknown) (unknown) Date of Service: 06/16/22 (units unknown) (unknown) (unknown) (no date) (unknown) (unknown) Deep Vein Thrombosis/Pulmonar y Embolism Present on Admission: No (units unknown) (unknown) (unknown) (no date) (unknown) (unknown) Eos # (Auto) 100 (units unknown) (unknown) (unknown) (no date) (unknown) (unknown) Eos # (Auto) (units unknown) (unknown) (unknown) (no date) (unknown) (unknown) Eos % (Auto) 0.7 L (units unknown) (unknown) (unknown) (no date) (unknown) (unknown) Eos % (Auto) (units unknown) (unknown) (unknown) (no date) (unknown) (unknown) Essential hypertension (units unknown) (unknown) (unknown) (no date) (unknown) (unknown) Estimated GFR > 60 (units unknown) (unknown) (unknown) (no date) (unknown) (unknown) Estimated GFR (units unknown) (unknown) (unknown) (no date) (unknown) (unknown) Exam (units unknown) (unknown) (unknown) (no date) (unknown) (unknown) Family History (units unknown) (unknown) (unknown) (no date) (unknown) (unknown) Father Diabetes mellitus (units unknown) (unknown) (unknown) (no date) (unknown) (unknown) Fraction of Inspired Oxygen 21 (units unknown) (unknown) (unknown) (no date) (unknown) (unknown) Globulin 2.4 (units unknown) (unknown) (unknown) (no date) (unknown) (unknown) Globulin (units unknown) (unknown) (unknown) (no date) (unknown) (unknown) Glucose 82 (units unknown) (unknown) (unknown) (no date) (unknown) (unknown) Glucose (units unknown) (unknown) (unknown) (no date) (unknown) (unknown) Hct 44.2 (units unknown) (unknown) (unknown) (no date) (unknown) (unknown) Hct (units unknown) (unknown) (unknown) (no date) (unknown) (unknown) He is followed by Dr. Weathers at the [facility].? He did not (units unknown) (unknown) (unknown) (no date) (unknown) (unknown) He notes a history of melanoma which was resected off of his right temporal (units unknown) (unknown) (unknown) (no date) (unknown) (unknown) Hgb 14.9 (units unknown) (unknown) (unknown) (no date) (unknown) (unknown) Hgb (units unknown) (unknown) (unknown) (no date) (unknown) (unknown) History of melanoma (units unknown) (unknown) (unknown) (no date) (unknown) (unknown) History of permanent cardiac pacemaker placement (units unknown) (unknown) (unknown) (no date) (unknown) (unknown) I spent a total of [] minutes of critical care time on this patient's care (units unknown) (unknown) (unknown) (no date) (unknown) (unknown) Interval history: (units unknown) (unknown) (unknown) (no date) (unknown) (unknown) [address] [address] (units unknown) (unknown) (unknown) (no date) (unknown) (unknown) Laboratory Results - last 24 hr (units unknown) (unknown) (unknown) (no date) (unknown) (unknown) Labs (units unknown) (unknown) (unknown) (no date) (unknown) (unknown) Labs: (units unknown) (unknown) (unknown) (no date) (unknown) (unknown) Lymph # (Auto) 500 L (units unknown) (unknown) (unknown) (no date) (unknown) (unknown) Lymph # (Auto) (units unknown) (unknown) (unknown) (no date) (unknown) (unknown) Lymph % (Auto) 7.5 L (units unknown) (unknown) (unknown) (no date) (unknown) (unknown) Lymph % (Auto) (units unknown) (unknown) (unknown) (no date) (unknown) (unknown) MCH 30.8 (units unknown) (unknown) (unknown) (no date) (unknown) (unknown) MCH (units unknown) (unknown) (unknown) (no date) (unknown) (unknown) MCHC 33.7 (units unknown) (unknown) (unknown) (no date) (unknown) (unknown) MCHC (units unknown) (unknown) (unknown) (no date) (unknown) (unknown) MCV 91.5 (units unknown) (unknown) (unknown) (no date) (unknown) (unknown) MCV (units unknown) (unknown) (unknown) (no date) (unknown) (unknown) Medical History (Updated 06/17/22 @ 00:55 by Hawa Michael [facility]) (units unknown) (unknown) (unknown) (no date) (unknown) (unknown) [place] # (Auto) 1100 H (units unknown) (unknown) (unknown) (no date) (unknown) (unknown) [place] # (Auto) (units unknown) (unknown) (unknown) (no date) (unknown) (unknown) [place] % (Auto) 15.8 H (units unknown) (unknown) (unknown) (no date) (unknown) (unknown) [place] % (Auto) (units unknown) (unknown) (unknown) (no date) (unknown) (unknown) Mother No problems noted. (units unknown) (unknown) (unknown) (no date) (unknown) (unknown) Neut # (Auto) 5300 (units unknown) (unknown) (unknown) (no date) (unknown) (unknown) Neut # (Auto) (units unknown) (unknown) (unknown) (no date) (unknown) (unknown) Neut % (Auto) 75.4 H (units unknown) (unknown) (unknown) (no date) (unknown) (unknown) Neut % (Auto) (units unknown) (unknown) (unknown) (no date) (unknown) (unknown) Objective (units unknown) (unknown) (unknown) (no date) (unknown) (unknown) Oxygen Delivery Method Room Air (units unknown) (unknown) (unknown) (no date) (unknown) (unknown) Oxygen Flow Rate 0 (units unknown) (unknown) (unknown) (no date) (unknown) (unknown) PFSH (units unknown) (unknown) (unknown) (no date) (unknown) (unknown) Pacemaker (units unknown) (unknown) (unknown) (no date) (unknown) (unknown) Patient: Yoseph Cardoso MR#: [id number] (units unknown) (unknown) (unknown) (no date) (unknown) (unknown) Phosphorus 3.2 (units unknown) (unknown) (unknown) (no date) (unknown) (unknown) Phosphorus (units unknown) (unknown) (unknown) (no date) (unknown) (unknown) Plt Count 189 (units unknown) (unknown) (unknown) (no date) (unknown) (unknown) Plt Count (units unknown) (unknown) (unknown) (no date) (unknown) (unknown) Potassium 4.3 (units unknown) (unknown) (unknown) (no date) (unknown) (unknown) Potassium (units unknown) (unknown) (unknown) (no date) (unknown) (unknown) Progress Note (units unknown) (unknown) (unknown) (no date) (unknown) (unknown) Provider: Roxana Parker MD (units unknown) (unknown) (unknown) (no date) (unknown) (unknown) Pulse Oximetry 97 96 97 (units unknown) (unknown) (unknown) (no date) (unknown) (unknown) Pulse Rate 61 86 95 H (units unknown) (unknown) (unknown) (no date) (unknown) (unknown) Quality (units unknown) (unknown) (unknown) (no date) (unknown) (unknown) RBC 4.83 (units unknown) (unknown) (unknown) (no date) (unknown) (unknown) RBC (units unknown) (unknown) (unknown) (no date) (unknown) (unknown) RDW 14.4 (units unknown) (unknown) (unknown) (no date) (unknown) (unknown) RDW (units unknown) (unknown) (unknown) (no date) (unknown) (unknown) Respiratory Rate 17 16 16 (units unknown) (unknown) (unknown) (no date) (unknown) (unknown) SaO2/FiO2 Ratio 471 (units unknown) (unknown) (unknown) (no date) (unknown) (unknown) Signed By: (units unknown) (unknown) (unknown) (no date) (unknown) (unknown) Smoking Status: Never smoker (units unknown) (unknown) (unknown) (no date) (unknown) (unknown) Social History (units unknown) (unknown) (unknown) (no date) (unknown) (unknown) Sodium 138 (units unknown) (unknown) (unknown) (no date) (unknown) (unknown) Sodium (units unknown) (unknown) (unknown) (no date) (unknown) (unknown) Subjective (units unknown) (unknown) (unknown) (no date) (unknown) (unknown) Surgical History (Updated 06/16/22 @ 21:27 by Hawa Michael [facility]) (units unknown) (unknown) (unknown) (no date) (unknown) (unknown) Temperature 96.8 F L 96.8 F L (units unknown) (unknown) (unknown) (no date) (unknown) (unknown) There were also numerous small hypoattenuating lesions throughout spleen which (units unknown) (unknown) (unknown) (no date) (unknown) (unknown) Time Spent With Patient (units unknown) (unknown) (unknown) (no date) (unknown) (unknown) Total Bilirubin 2.0 H (units unknown) (unknown) (unknown) (no date) (unknown) (unknown) Total Bilirubin (units unknown) (unknown) (unknown) (no date) (unknown) (unknown) Total Protein 4.9 L (units unknown) (unknown) (unknown) (no date) (unknown) (unknown) Total Protein (units unknown) (unknown) (unknown) (no date) (unknown) (unknown) VTE (units unknown) (unknown) (unknown) (no date) (unknown) (unknown) Vital Signs (units unknown) (unknown) (unknown) (no date) (unknown) (unknown) WBC 7.0 (units unknown) (unknown) (unknown) (no date) (unknown) (unknown) WBC (units unknown) (unknown) (unknown) (no date) (unknown) (unknown) [Embedded Image Not Available] (units unknown) (unknown) (unknown) (no date) (unknown) (unknown) ago. He has had serial f/u w/a manager hospitality at [facility] (units unknown) (unknown) (unknown) (no date) (unknown) (unknown) alcohol intake: current (units unknown) (unknown) (unknown) (no date) (unknown) (unknown) approximately 30 lb over the past several months. He is a history of a nevoid (units unknown) (unknown) (unknown) (no date) (unknown) (unknown) decreased appetite and night sweats. He did have occasional mild abdominal (units unknown) (unknown) (unknown) (no date) (unknown) (unknown) discomfort which he attributed to his chronic constipation. He lost (units unknown) (unknown) (unknown) (no date) (unknown) (unknown) encephalopathy/cogn itive impairment, essential hypertension, AFib, and (units unknown) (unknown) (unknown) (no date) (unknown) (unknown) household members: spouse (units unknown) (unknown) (unknown) (no date) (unknown) (unknown) includes metastatic disease, multifocal hepatocellular carcinoma or infection. (units unknown) (unknown) (unknown) (no date) (unknown) (unknown) infectious or inflammatory pulmonary opacities.? [id number] (units unknown) (unknown) (unknown) (no date) (unknown) (unknown) liver and spleen being significantly heterogeneous.? Patient underwent abdominal (units unknown) (unknown) (unknown) (no date) (unknown) (unknown) malnutrition.? Head CT was unrevealing.? CT scan of the chest revealed bibasilar (units unknown) (unknown) (unknown) (no date) (unknown) (unknown) melanoma which was resected from his right temporal scalp approximately 2 years (units unknown) (unknown) (unknown) (no date) (unknown) (unknown) onset of symptoms approximately 6 weeks prior to admission. He developed (units unknown) (unknown) (unknown) (no date) (unknown) (unknown) pelvic CT which revealed multiple ill-defined hypoattenuating mass lesions (units unknown) (unknown) (unknown) (no date) (unknown) (unknown) placement, on chronic Eliquis, hypertension, and melanoma who was admitted (units unknown) (unknown) (unknown) (no date) (unknown) (unknown) receive any systemic treatment.? He has not had any recurrence and follows with (units unknown) (unknown) (unknown) (no date) (unknown) (unknown) fqlua-uhogubb-isei- left pleural effusions.? There is additional note of the (units unknown) (unknown) (unknown) (no date) (unknown) (unknown) scalp approximately 2 years ago.? He describes having had a 7 an inch incision.? (units unknown) (unknown) (unknown) (no date) (unknown) (unknown) the manager hospitality regularly. (units unknown) (unknown) (unknown) (no date) (unknown) (unknown) throughout the liver which was felt to be nonspecific but differential diagnosis (units unknown) (unknown) (unknown) (no date) (unknown) (unknown) today; this time is exclusive of procedural time. (units unknown) (unknown) (unknown) (no date) (unknown) (unknown) well as infectious etiology such as microabscess. Patient reported insidious (units unknown) (unknown) (unknown) (no date) (unknown) (unknown) were also nonspecific and have a differential including neoplastic process as (units unknown) (unknown) (unknown) (no date) (unknown) (unknown) yesterday with sepsis without septic shock, transaminitis, UTI, (units unknown) (unknown) Result panel 246 (unknown) (no date) (unknown) (unknown) (no value) (units unknown) (unknown) (unknown) (no date) (unknown) (unknown) (past 8 hours): (units unknown) (unknown) (unknown) (no date) (unknown) (unknown) [id number] (units unknown) (unknown) (unknown) (no date) (unknown) (unknown) 06/16/22 06/18/22 06/18/22 (units unknown) (unknown) (unknown) (no date) (unknown) (unknown) 06/18/22 06:02 (units unknown) (unknown) (unknown) (no date) (unknown) (unknown) 06/18/22 1224 (units unknown) (unknown) (unknown) (no date) (unknown) (unknown) 06/18/22 (units unknown) (unknown) (unknown) (no date) (unknown) (unknown) 06:02 (units unknown) (unknown) (unknown) (no date) (unknown) (unknown) 06:30 06/18/22 (units unknown) (unknown) (unknown) (no date) (unknown) (unknown) 09:02 06/18/22 (units unknown) (unknown) (unknown) (no date) (unknown) (unknown) 1. Concern for metastatic disease (units unknown) (unknown) (unknown) (no date) (unknown) (unknown) 10:13 (units unknown) (unknown) (unknown) (no date) (unknown) (unknown) 2. Sepsis (units unknown) (unknown) (unknown) (no date) (unknown) (unknown) 21:57 06:02 06:02 (units unknown) (unknown) (unknown) (no date) (unknown) (unknown) 3. UTI (units unknown) (unknown) (unknown) (no date) (unknown) (unknown) 4. Acute metabolic encephalopathy (units unknown) (unknown) (unknown) (no date) (unknown) (unknown) 5. Essential hypertension (units unknown) (unknown) (unknown) (no date) (unknown) (unknown) 6. Atrial fibrillation (units unknown) (unknown) (unknown) (no date) (unknown) (unknown) 7. Malnutrition, severe (units unknown) (unknown) (unknown) (no date) (unknown) (unknown) 86-year-old male with history of atrial fibrillation, status post pacemaker (units unknown) (unknown) (unknown) (no date) (unknown) (unknown) ? (units unknown) (unknown) (unknown) (no date) (unknown) (unknown) ABD: Soft, NT/ND, BT present in all 4 quadrants, no organomegaly or masses (units unknown) (unknown) (unknown) (no date) (unknown) (unknown) ALT 52 H (units unknown) (unknown) (unknown) (no date) (unknown) (unknown) ALT (units unknown) (unknown) (unknown) (no date) (unknown) (unknown) AST 53 (units unknown) (unknown) (unknown) (no date) (unknown) (unknown) AST (units unknown) (unknown) (unknown) (no date) (unknown) (unknown) Age/Sex: 86 / M (units unknown) (unknown) (unknown) (no date) (unknown) (unknown) Albumin 2.5 L (units unknown) (unknown) (unknown) (no date) (unknown) (unknown) Albumin (units unknown) (unknown) (unknown) (no date) (unknown) (unknown) Albumin/Globulin Ratio 1.0 (units unknown) (unknown) (unknown) (no date) (unknown) (unknown) Albumin/Globulin Ratio (units unknown) (unknown) (unknown) (no date) (unknown) (unknown) Alkaline Phosphatase 401 H (units unknown) (unknown) (unknown) (no date) (unknown) (unknown) Alkaline Phosphatase (units unknown) (unknown) (unknown) (no date) (unknown) (unknown) Alpha Fetoprotein 1.8 (units unknown) (unknown) (unknown) (no date) (unknown) (unknown) Alpha Fetoprotein (units unknown) (unknown) (unknown) (no date) (unknown) (unknown) Although he is alert and oriented today, he appearsto be unable to make complex (units unknown) (unknown) (unknown) (no date) (unknown) (unknown) Assessment + Plan narrative: (units unknown) (unknown) (unknown) (no date) (unknown) (unknown) Assessment + Plan (units unknown) (unknown) (unknown) (no date) (unknown) (unknown) Asthma (units unknown) (unknown) (unknown) (no date) (unknown) (unknown) Atrial fibrillation (units unknown) (unknown) (unknown) (no date) (unknown) (unknown) BP normotensive today. Continue amlodipine. (units unknown) (unknown) (unknown) (no date) (unknown) (unknown) BUN 22 H (units unknown) (unknown) (unknown) (no date) (unknown) (unknown) BUN (units unknown) (unknown) (unknown) (no date) (unknown) (unknown) BUN/Creatinine Ratio 25.0 H (units unknown) (unknown) (unknown) (no date) (unknown) (unknown) BUN/Creatinine Ratio (units unknown) (unknown) (unknown) (no date) (unknown) (unknown) Baso # (Auto) 0 (units unknown) (unknown) (unknown) (no date) (unknown) (unknown) Baso # (Auto) (units unknown) (unknown) (unknown) (no date) (unknown) (unknown) Baso % (Auto) 0.6 (units unknown) (unknown) (unknown) (no date) (unknown) (unknown) Baso % (Auto) (units unknown) (unknown) (unknown) (no date) (unknown) (unknown) Blood Pressure 157/76 H 136/72 (units unknown) (unknown) (unknown) (no date) (unknown) (unknown) CHEST: Respiratory excursions symmetric, CTAB (units unknown) (unknown) (unknown) (no date) (unknown) (unknown) [employer] disease. (units unknown) (unknown) (unknown) (no date) (unknown) (unknown) CV: irregularly irregular, no M/R/G (units unknown) (unknown) (unknown) (no date) (unknown) (unknown) Calcium 7.6 L (units unknown) (unknown) (unknown) (no date) (unknown) (unknown) Calcium (units unknown) (unknown) (unknown) (no date) (unknown) (unknown) Carbon Dioxide 27 (units unknown) (unknown) (unknown) (no date) (unknown) (unknown) Carbon Dioxide (units unknown) (unknown) (unknown) (no date) (unknown) (unknown) Chloride 104 (units unknown) (unknown) (unknown) (no date) (unknown) (unknown) Chloride (units unknown) (unknown) (unknown) (no date) (unknown) (unknown) Chronic anticoagulation (units unknown) (unknown) (unknown) (no date) (unknown) (unknown) Code status (units unknown) (unknown) (unknown) (no date) (unknown) (unknown) Creatinine 0.88 (units unknown) (unknown) (unknown) (no date) (unknown) (unknown) Creatinine (units unknown) (unknown) (unknown) (no date) (unknown) (unknown) Critical Care time: (units unknown) (unknown) (unknown) (no date) (unknown) (unknown) : 1935 Acct:[id number] (units unknown) (unknown) (unknown) (no date) (unknown) (unknown) Date of Service: 06/16/22 (units unknown) (unknown) (unknown) (no date) (unknown) (unknown) Deep Vein Thrombosis/Pulmonar y Embolism Present on Admission: No (units unknown) (unknown) (unknown) (no date) (unknown) (unknown) Diagnosed at [facility].? Urine culture (units unknown) (unknown) (unknown) (no date) (unknown) (unknown) Disposition (units unknown) (unknown) (unknown) (no date) (unknown) (unknown) EXTR: warm, well perfused, no C/C/E (units unknown) (unknown) (unknown) (no date) (unknown) (unknown) Eliquis (units unknown) (unknown) (unknown) (no date) (unknown) (unknown) Eliquis.? He is status post pacemaker. (units unknown) (unknown) (unknown) (no date) (unknown) (unknown) Eos # (Auto) 100 (units unknown) (unknown) (unknown) (no date) (unknown) (unknown) Eos # (Auto) (units unknown) (unknown) (unknown) (no date) (unknown) (unknown) Eos % (Auto) 0.7 L (units unknown) (unknown) (unknown) (no date) (unknown) (unknown) Eos % (Auto) (units unknown) (unknown) (unknown) (no date) (unknown) (unknown) Essential hypertension (units unknown) (unknown) (unknown) (no date) (unknown) (unknown) Estimated GFR > 60 (units unknown) (unknown) (unknown) (no date) (unknown) (unknown) Estimated GFR (units unknown) (unknown) (unknown) (no date) (unknown) (unknown) Exam Narrative: (units unknown) (unknown) (unknown) (no date) (unknown) (unknown) Exam (units unknown) (unknown) (unknown) (no date) (unknown) (unknown) Family History (units unknown) (unknown) (unknown) (no date) (unknown) (unknown) Father Diabetes mellitus (units unknown) (unknown) (unknown) (no date) (unknown) (unknown) Fraction of Inspired Oxygen 21 (units unknown) (unknown) (unknown) (no date) (unknown) (unknown) Full (units unknown) (unknown) (unknown) (no date) (unknown) (unknown) GEN:? Pleasant elderly male, alert and oriented x 2, NAD (units unknown) (unknown) (unknown) (no date) (unknown) (unknown) Globulin 2.4 (units unknown) (unknown) (unknown) (no date) (unknown) (unknown) Globulin (units unknown) (unknown) (unknown) (no date) (unknown) (unknown) Glucose 82 (units unknown) (unknown) (unknown) (no date) (unknown) (unknown) Glucose (units unknown) (unknown) (unknown) (no date) (unknown) (unknown) HEENT:NC, Face symmetric (units unknown) (unknown) (unknown) (no date) (unknown) (unknown) Hct 44.2 (units unknown) (unknown) (unknown) (no date) (unknown) (unknown) Hct (units unknown) (unknown) (unknown) (no date) (unknown) (unknown) He did have rapid AFib on the date of admission that has not recurred.? Continue (units unknown) (unknown) (unknown) (no date) (unknown) (unknown) Hepatocellular carcinoma is also in the differential.? Patient has no known (units unknown) (unknown) (unknown) (no date) (unknown) (unknown) Hgb 14.9 (units unknown) (unknown) (unknown) (no date) (unknown) (unknown) Hgb (units unknown) (unknown) (unknown) (no date) (unknown) (unknown) History of melanoma (units unknown) (unknown) (unknown) (no date) (unknown) (unknown) History of permanent cardiac pacemaker placement (units unknown) (unknown) (unknown) (no date) (unknown) (unknown) I spent a total of [] minutes of critical care time on this patient's care (units unknown) (unknown) (unknown) (no date) (unknown) (unknown) Interval history: (units unknown) (unknown) (unknown) (no date) (unknown) (unknown) [address] [address] (units unknown) (unknown) (unknown) (no date) (unknown) (unknown) Laboratory Results - last 24 hr (units unknown) (unknown) (unknown) (no date) (unknown) (unknown) Labs (units unknown) (unknown) (unknown) (no date) (unknown) (unknown) Labs: (units unknown) (unknown) (unknown) (no date) (unknown) (unknown) Lymph # (Auto) 500 L (units unknown) (unknown) (unknown) (no date) (unknown) (unknown) Lymph # (Auto) (units unknown) (unknown) (unknown) (no date) (unknown) (unknown) Lymph % (Auto) 7.5 L (units unknown) (unknown) (unknown) (no date) (unknown) (unknown) Lymph % (Auto) (units unknown) (unknown) (unknown) (no date) (unknown) (unknown) MCH 30.8 (units unknown) (unknown) (unknown) (no date) (unknown) (unknown) MCH (units unknown) (unknown) (unknown) (no date) (unknown) (unknown) MCHC 33.7 (units unknown) (unknown) (unknown) (no date) (unknown) (unknown) MCHC (units unknown) (unknown) (unknown) (no date) (unknown) (unknown) MCV 91.5 (units unknown) (unknown) (unknown) (no date) (unknown) (unknown) MCV (units unknown) (unknown) (unknown) (no date) (unknown) (unknown) Medical History (Updated 06/17/22 @ 00:55 by JOSE Crystal) (units unknown) (unknown) (unknown) (no date) (unknown) (unknown) [place] # (Auto) 1100 H (units unknown) (unknown) (unknown) (no date) (unknown) (unknown) [place] # (Auto) (units unknown) (unknown) (unknown) (no date) (unknown) (unknown) [place] % (Auto) 15.8 H (units unknown) (unknown) (unknown) (no date) (unknown) (unknown) [place] % (Auto) (units unknown) (unknown) (unknown) (no date) (unknown) (unknown) Mother No problems noted. (units unknown) (unknown) (unknown) (no date) (unknown) (unknown) NEURO: Alert and oriented x 2, nonfocal (units unknown) (unknown) (unknown) (no date) (unknown) (unknown) Narrative (units unknown) (unknown) (unknown) (no date) (unknown) (unknown) Neut # (Auto) 5300 (units unknown) (unknown) (unknown) (no date) (unknown) (unknown) Neut # (Auto) (units unknown) (unknown) (unknown) (no date) (unknown) (unknown) Neut % (Auto) 75.4 H (units unknown) (unknown) (unknown) (no date) (unknown) (unknown) Neut % (Auto) (units unknown) (unknown) (unknown) (no date) (unknown) (unknown) Objective (units unknown) (unknown) (unknown) (no date) (unknown) (unknown) Oxygen Delivery Method Room Air (units unknown) (unknown) (unknown) (no date) (unknown) (unknown) Oxygen Flow Rate 0 (units unknown) (unknown) (unknown) (no date) (unknown) (unknown) PFSH (units unknown) (unknown) (unknown) (no date) (unknown) (unknown) Pacemaker (units unknown) (unknown) (unknown) (no date) (unknown) (unknown) Patient appears to have ongoing mild encephalopathy, but overall is improved.? (units unknown) (unknown) (unknown) (no date) (unknown) (unknown) Patient has a known history of nevoid melanoma status post resection 2 years (units unknown) (unknown) (unknown) (no date) (unknown) (unknown) Patient has evidence of severe protein calorie malnutrition.? He has lost 30 lb (units unknown) (unknown) (unknown) (no date) (unknown) (unknown) Patient: Yoseph Cardoso MR#: [id number] (units unknown) (unknown) (unknown) (no date) (unknown) (unknown) Pending further determination of patient's goals of care. PT is recommending (units unknown) (unknown) (unknown) (no date) (unknown) (unknown) Phosphorus 3.2 (units unknown) (unknown) (unknown) (no date) (unknown) (unknown) Phosphorus (units unknown) (unknown) (unknown) (no date) (unknown) (unknown) Plt Count 189 (units unknown) (unknown) (unknown) (no date) (unknown) (unknown) Plt Count (units unknown) (unknown) (unknown) (no date) (unknown) (unknown) Potassium 4.3 (units unknown) (unknown) (unknown) (no date) (unknown) (unknown) Potassium (units unknown) (unknown) (unknown) (no date) (unknown) (unknown) Progress Note (units unknown) (unknown) (unknown) (no date) (unknown) (unknown) Prophylaxis (units unknown) (unknown) (unknown) (no date) (unknown) (unknown) Provider: Roxana Parker MD (units unknown) (unknown) (unknown) (no date) (unknown) (unknown) Pulse Oximetry 97 96 97 (units unknown) (unknown) (unknown) (no date) (unknown) (unknown) Pulse Rate 61 86 95 H (units unknown) (unknown) (unknown) (no date) (unknown) (unknown) Quality (units unknown) (unknown) (unknown) (no date) (unknown) (unknown) RBC 4.83 (units unknown) (unknown) (unknown) (no date) (unknown) (unknown) RBC (units unknown) (unknown) (unknown) (no date) (unknown) (unknown) RDW 14.4 (units unknown) (unknown) (unknown) (no date) (unknown) (unknown) RDW (units unknown) (unknown) (unknown) (no date) (unknown) (unknown) Respiratory Rate 17 16 16 (units unknown) (unknown) (unknown) (no date) (unknown) (unknown) SKIN: warm and dry, no rash (units unknown) (unknown) (unknown) (no date) (unknown) (unknown) SNF rehab. (units unknown) (unknown) (unknown) (no date) (unknown) (unknown) SaO2/FiO2 Ratio 471 (units unknown) (unknown) (unknown) (no date) (unknown) (unknown) Signed By:<Electronically signed by Roxana Parker MD> (units unknown) (unknown) (unknown) (no date) (unknown) (unknown) Smoking Status: Never smoker (units unknown) (unknown) (unknown) (no date) (unknown) (unknown) Social History (units unknown) (unknown) (unknown) (no date) (unknown) (unknown) Sodium 138 (units unknown) (unknown) (unknown) (no date) (unknown) (unknown) Sodium (units unknown) (unknown) (unknown) (no date) (unknown) (unknown) Subjective (units unknown) (unknown) (unknown) (no date) (unknown) (unknown) Surgical History (Updated 06/16/22 @ 21:27 by Hawa Michael [facility]) (units unknown) (unknown) (unknown) (no date) (unknown) (unknown) Suspect this reflected SIRS rather than sepsis.? However, he does have evidence (units unknown) (unknown) (unknown) (no date) (unknown) (unknown) Temperature 96.8 F L 96.8 F L (units unknown) (unknown) (unknown) (no date) (unknown) (unknown) There were also numerous small hypoattenuating lesions throughout spleen which (units unknown) (unknown) (unknown) (no date) (unknown) (unknown) Time Spent With Patient (units unknown) (unknown) (unknown) (no date) (unknown) (unknown) Today patient reports no recollection of the over 30 minute conversation we had (units unknown) (unknown) (unknown) (no date) (unknown) (unknown) Total Bilirubin 2.0 H (units unknown) (unknown) (unknown) (no date) (unknown) (unknown) Total Bilirubin (units unknown) (unknown) (unknown) (no date) (unknown) (unknown) Total Protein 4.9 L (units unknown) (unknown) (unknown) (no date) (unknown) (unknown) Total Protein (units unknown) (unknown) (unknown) (no date) (unknown) (unknown) VTE (units unknown) (unknown) (unknown) (no date) (unknown) (unknown) Vital Signs (units unknown) (unknown) (unknown) (no date) (unknown) (unknown) WBC 7.0 (units unknown) (unknown) (unknown) (no date) (unknown) (unknown) WBC (units unknown) (unknown) (unknown) (no date) (unknown) (unknown) [place]. (units unknown) (unknown) (unknown) (no date) (unknown) (unknown) [Embedded Image Not Available] (units unknown) (unknown) (unknown) (no date) (unknown) (unknown) above.? Await dietitian recommendation. Will add MVI and thiamine. (units unknown) (unknown) (unknown) (no date) (unknown) (unknown) ago. 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 Reeder) at [facility] (units unknown) (unknown) (unknown) (no date) (unknown) (unknown) ago.? He now has multifocal lesions in the liver and spleen on imaging.? (units unknown) (unknown) (unknown) (no date) (unknown) (unknown) alcohol intake: current (units unknown) (unknown) (unknown) (no date) (unknown) (unknown) ambivalent. He wants to discuss things further w/his and children. If he (units unknown) (unknown) (unknown) (no date) (unknown) (unknown) any ill symptoms such as fevers or chills.? His white blood cell count remains (units unknown) (unknown) (unknown) (no date) (unknown) (unknown) approximately 30 lb over the past several months. He is a history of a nevoid (units unknown) (unknown) (unknown) (no date) (unknown) (unknown) children. He reports he has had ?88 good years?. He then asked me to leave so (units unknown) (unknown) (unknown) (no date) (unknown) (unknown) continues to have encephalopathy, MRI brain should be performed to assess for (units unknown) (unknown) (unknown) (no date) (unknown) (unknown) decisions at this point.? Will await further input from family. (units unknown) (unknown) (unknown) (no date) (unknown) (unknown) decreased appetite and night sweats. He did have occasional mild abdominal (units unknown) (unknown) (unknown) (no date) (unknown) (unknown) discomfort which he attributed to his chronic constipation. He lost (units unknown) (unknown) (unknown) (no date) (unknown) (unknown) encephalopathy/cogn itive impairment, essential hypertension, AFib, and (units unknown) (unknown) (unknown) (no date) (unknown) (unknown) he could eat his breakfast. (units unknown) (unknown) (unknown) (no date) (unknown) (unknown) here is negative thus far.? Continue Zosyn for now.? Await culture results from (units unknown) (unknown) (unknown) (no date) (unknown) (unknown) history of hepatitis.? In the differential was also infectious etiology.? That (units unknown) (unknown) (unknown) (no date) (unknown) (unknown) household members: spouse (units unknown) (unknown) (unknown) (no date) (unknown) (unknown) includes metastatic disease, multifocal hepatocellular carcinoma or infection. (units unknown) (unknown) (unknown) (no date) (unknown) (unknown) infectious or inflammatory pulmonary opacities.? [id number] (units unknown) (unknown) (unknown) (no date) (unknown) (unknown) intervention or not. He wants to discuss this further with his and (units unknown) (unknown) (unknown) (no date) (unknown) (unknown) liver and spleen being significantly heterogeneous.? Patient underwent abdominal (units unknown) (unknown) (unknown) (no date) (unknown) (unknown) malnutrition.? Head CT was unrevealing.? CT scan of the chest revealed bibasilar (units unknown) (unknown) (unknown) (no date) (unknown) (unknown) melanoma which was resected from his right temporal scalp approximately 2 years (units unknown) (unknown) (unknown) (no date) (unknown) (unknown) negative to date.? He is afebrile with a normal white blood cell count. (units unknown) (unknown) (unknown) (no date) (unknown) (unknown) normal.? 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 Discussed with the pa (units unknown) (unknown) (unknown) (no date) (unknown) (unknown) of UTI.? He remains on empiric Zosyn therapy.? Blood and urine cultures are (units unknown) (unknown) (unknown) (no date) (unknown) (unknown) onset of symptoms approximately 6 weeks prior to admission. He developed (units unknown) (unknown) (unknown) (no date) (unknown) (unknown) over the last few months.? Highly concerning for metastatic disease as noted (units unknown) (unknown) (unknown) (no date) (unknown) (unknown) pelvic CT which revealed multiple ill-defined hypoattenuating mass lesions (units unknown) (unknown) (unknown) (no date) (unknown) (unknown) placement, on chronic Eliquis, hypertension, and melanoma who was admitted (units unknown) (unknown) (unknown) (no date) (unknown) (unknown) reiterated that his choices include biopsy to determine type of cancer and (units unknown) (unknown) (unknown) (no date) (unknown) (unknown) reports he is uncertain whether he would like to pursue biopsy and potential (units unknown) (unknown) (unknown) (no date) (unknown) (unknown) [id number]- left pleural effusions.? There is additional note of the (units unknown) (unknown) (unknown) (no date) (unknown) (unknown) said, patient reports a slowly progressive onset of symptoms.? 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 (units unknown) (unknown) (unknown) (no date) (unknown) (unknown) treatment options if he would consider treatment or palliative care. He remains (units unknown) (unknown) (unknown) (no date) (unknown) (unknown) well as infectious etiology such as microabscess. Patient reported insidious (units unknown) (unknown) (unknown) (no date) (unknown) (unknown) were also nonspecific and have a differential including neoplastic process as (units unknown) (unknown) (unknown) (no date) (unknown) (unknown) yesterday in regard to concern for metastatic cancer or new malignancy. He (units unknown) (unknown) (unknown) (no date) (unknown) (unknown) yesterday with sepsis without septic shock, transaminitis, UTI, (units unknown) (unknown) (unknown) (no date) (unknown) (unknown) yesterday. Today, pt does not have recollection of the conversation.? I have (units unknown) (unknown) Result panel 247 (unknown) (no date) (unknown) (unknown) (no value) (units unknown) (unknown) (unknown) (no date) (unknown) (unknown) NO GROWTH AFTER 48 HOURS (units unknown) (unknown) Result panel 248 (unknown) (no date) (unknown) (unknown) (no value) (units unknown) (unknown) (unknown) (no date) (unknown) (unknown) NO GROWTH AFTER 48 HOURS (units unknown) (unknown) Result panel 249 (unknown) (no date) (unknown) (unknown) 0.8 % (unknown) (unknown) (no date) (unknown) (unknown) 0.9 % (unknown) (unknown) (no date) (unknown) (unknown) 100 /ul (unknown) (unknown) (no date) (unknown) (unknown) 100 /ul (unknown) (unknown) (no date) (unknown) (unknown) 1000 /ul (unknown) (unknown) (no date) (unknown) (unknown) 14.3 % (unknown) (unknown) (no date) (unknown) (unknown) 14.9 g/dl (unknown) (unknown) (no date) (unknown) (unknown) 15.4 % (unknown) (unknown) (no date) (unknown) (unknown) 185 x10 3/ul (unknown) (unknown) (no date) (unknown) (unknown) 30.9 pg (unknown) (unknown) (no date) (unknown) (unknown) 34.2 % (unknown) (unknown) (no date) (unknown) (unknown) 4.83 x10 6/ul (unknown) (unknown) (no date) (unknown) (unknown) 400 /ul (unknown) (unknown) (no date) (unknown) (unknown) 43.6 % (unknown) (unknown) (no date) (unknown) (unknown) 5100 /ul (unknown) (unknown) (no date) (unknown) (unknown) 6.6 % (unknown) (unknown) (no date) (unknown) (unknown) 6.7 x10 3/ul (unknown) (unknown) (no date) (unknown) (unknown) 76.3 % (unknown) (unknown) (no date) (unknown) (unknown) 90.3 fl (unknown) Result panel 250 (unknown) (no date) (unknown) (unknown) 3.3 mg/dl (unknown) Result panel 251 (unknown) (no date) (unknown) (unknown) > 60 ml/min (unknown) (unknown) (no date) (unknown) (unknown) > 60 ml/min (unknown) (unknown) (no date) (unknown) (unknown) 0.95 mg/dl (unknown) (unknown) (no date) (unknown) (unknown) 1.0 (units unknown) (unknown) (unknown) (no date) (unknown) (unknown) 102 mmol/l (unknown) (unknown) (no date) (unknown) (unknown) 133 mmol/l (unknown) (unknown) (no date) (unknown) (unknown) 2.4 mg/dl (unknown) (unknown) (no date) (unknown) (unknown) 2.5 g/dl (unknown) (unknown) (no date) (unknown) (unknown) 2.6 g/dl (unknown) (unknown) (no date) (unknown) (unknown) 25 mg/dl (unknown) (unknown) (no date) (unknown) (unknown) 25 mmol/l (unknown) (unknown) (no date) (unknown) (unknown) 26.3 (units unknown) (unknown) (unknown) (no date) (unknown) (unknown) 4.4 mmol/l (unknown) (unknown) (no date) (unknown) (unknown) 463 u/l (unknown) (unknown) (no date) (unknown) (unknown) 5.1 g/dl (unknown) (unknown) (no date) (unknown) (unknown) 52 iu/l (unknown) (unknown) (no date) (unknown) (unknown) 59 iu/l (unknown) (unknown) (no date) (unknown) (unknown) 7.7 mg/dl (unknown) (unknown) (no date) (unknown) (unknown) 86 mg/dl (unknown) (unknown) (no date) (unknown) (unknown) 86 mg/dl (unknown) Result panel 252 (unknown) (no date) (unknown) (unknown) Comment (units unknown) (unknown) (unknown) (no date) (unknown) (unknown) Comment (units unknown) (unknown) (unknown) (no date) (unknown) (unknown) Negative (units unknown) (unknown) (unknown) (no date) (unknown) (unknown) Non Reactive (units unknown) (unknown) Result panel 253 (unknown) (no date) (unknown) (unknown) (no value) (units unknown) (unknown) (unknown) (no date) (unknown) (unknown) (past 8 hours): (units unknown) (unknown) (unknown) (no date) (unknown) (unknown) [id number] (units unknown) (unknown) (unknown) (no date) (unknown) (unknown) 06/16/22 06/19/22 06/19/22 (units unknown) (unknown) (unknown) (no date) (unknown) (unknown) 06/19/22 06:08 (units unknown) (unknown) (unknown) (no date) (unknown) (unknown) 06/19/22 (units unknown) (unknown) (unknown) (no date) (unknown) (unknown) 04:40 06/19/22 (units unknown) (unknown) (unknown) (no date) (unknown) (unknown) 06:08 (units unknown) (unknown) (unknown) (no date) (unknown) (unknown) 08:26 (units unknown) (unknown) (unknown) (no date) (unknown) (unknown) 1. Concern for metastatic disease (units unknown) (unknown) (unknown) (no date) (unknown) (unknown) 2. Sepsis (units unknown) (unknown) (unknown) (no date) (unknown) (unknown) 21:57 06:08 06:08 (units unknown) (unknown) (unknown) (no date) (unknown) (unknown) 3. UTI (units unknown) (unknown) (unknown) (no date) (unknown) (unknown) 4. Acute metabolic encephalopathy (units unknown) (unknown) (unknown) (no date) (unknown) (unknown) 5. Essential hypertension (units unknown) (unknown) (unknown) (no date) (unknown) (unknown) 6. Atrial fibrillation (units unknown) (unknown) (unknown) (no date) (unknown) (unknown) 7. Malnutrition, severe (units unknown) (unknown) (unknown) (no date) (unknown) (unknown) ? (units unknown) (unknown) (unknown) (no date) (unknown) (unknown) ABD: Soft, NT/ND, BT present in all 4 quadrants, no organomegaly or masses (units unknown) (unknown) (unknown) (no date) (unknown) (unknown) ALT 52 H (units unknown) (unknown) (unknown) (no date) (unknown) (unknown) ALT (units unknown) (unknown) (unknown) (no date) (unknown) (unknown) AST 59 (units unknown) (unknown) (unknown) (no date) (unknown) (unknown) AST (units unknown) (unknown) (unknown) (no date) (unknown) (unknown) Age/Sex: 86 / M (units unknown) (unknown) (unknown) (no date) (unknown) (unknown) Albumin 2.6 L (units unknown) (unknown) (unknown) (no date) (unknown) (unknown) Albumin (units unknown) (unknown) (unknown) (no date) (unknown) (unknown) Albumin/Globulin Ratio 1.0 (units unknown) (unknown) (unknown) (no date) (unknown) (unknown) Albumin/Globulin Ratio (units unknown) (unknown) (unknown) (no date) (unknown) (unknown) Alkaline Phosphatase 463 H (units unknown) (unknown) (unknown) (no date) (unknown) (unknown) Alkaline Phosphatase (units unknown) (unknown) (unknown) (no date) (unknown) (unknown) Although he is alert and oriented today, he appearsto be unable to make complex (units unknown) (unknown) (unknown) (no date) (unknown) (unknown) Assessment + Plan narrative: (units unknown) (unknown) (unknown) (no date) (unknown) (unknown) Assessment + Plan (units unknown) (unknown) (unknown) (no date) (unknown) (unknown) Asthma (units unknown) (unknown) (unknown) (no date) (unknown) (unknown) Atrial fibrillation (units unknown) (unknown) (unknown) (no date) (unknown) (unknown) BP normotensive today. Continue amlodipine. (units unknown) (unknown) (unknown) (no date) (unknown) (unknown) BUN 25 H (units unknown) (unknown) (unknown) (no date) (unknown) (unknown) BUN (units unknown) (unknown) (unknown) (no date) (unknown) (unknown) BUN/Creatinine Ratio 26.3 H (units unknown) (unknown) (unknown) (no date) (unknown) (unknown) BUN/Creatinine Ratio (units unknown) (unknown) (unknown) (no date) (unknown) (unknown) Baso # (Auto) 100 (units unknown) (unknown) (unknown) (no date) (unknown) (unknown) Baso # (Auto) (units unknown) (unknown) (unknown) (no date) (unknown) (unknown) Baso % (Auto) 0.9 (units unknown) (unknown) (unknown) (no date) (unknown) (unknown) Baso % (Auto) (units unknown) (unknown) (unknown) (no date) (unknown) (unknown) Blood Pressure 156/76 H (units unknown) (unknown) (unknown) (no date) (unknown) (unknown) CHEST: Respiratory excursions symmetric, CTAB (units unknown) (unknown) (unknown) (no date) (unknown) (unknown) [employer] disease. (units unknown) (unknown) (unknown) (no date) (unknown) (unknown) CV: irregularly irregular, no M/R/G (units unknown) (unknown) (unknown) (no date) (unknown) (unknown) Calcium 7.7 L (units unknown) (unknown) (unknown) (no date) (unknown) (unknown) Calcium (units unknown) (unknown) (unknown) (no date) (unknown) (unknown) Carbon Dioxide 25 (units unknown) (unknown) (unknown) (no date) (unknown) (unknown) Carbon Dioxide (units unknown) (unknown) (unknown) (no date) (unknown) (unknown) Chloride 102 (units unknown) (unknown) (unknown) (no date) (unknown) (unknown) Chloride (units unknown) (unknown) (unknown) (no date) (unknown) (unknown) Chronic anticoagulation (units unknown) (unknown) (unknown) (no date) (unknown) (unknown) Code status (units unknown) (unknown) (unknown) (no date) (unknown) (unknown) Creatinine 0.95 (units unknown) (unknown) (unknown) (no date) (unknown) (unknown) Creatinine (units unknown) (unknown) (unknown) (no date) (unknown) (unknown) Critical Care time: (units unknown) (unknown) (unknown) (no date) (unknown) (unknown) : 1935 Acct:[id number] (units unknown) (unknown) (unknown) (no date) (unknown) (unknown) Date of Service: 06/16/22 (units unknown) (unknown) (unknown) (no date) (unknown) (unknown) Deep Vein Thrombosis/Pulmonar y Embolism Present on Admission: No (units unknown) (unknown) (unknown) (no date) (unknown) (unknown) Diagnosed at [facility].? Urine culture (units unknown) (unknown) (unknown) (no date) (unknown) (unknown) Disposition (units unknown) (unknown) (unknown) (no date) (unknown) (unknown) EXTR: warm, well perfused, no C/C/E (units unknown) (unknown) (unknown) (no date) (unknown) (unknown) Eliquis (units unknown) (unknown) (unknown) (no date) (unknown) (unknown) Eliquis.? He is status post pacemaker. (units unknown) (unknown) (unknown) (no date) (unknown) (unknown) Eos # (Auto) 100 (units unknown) (unknown) (unknown) (no date) (unknown) (unknown) Eos # (Auto) (units unknown) (unknown) (unknown) (no date) (unknown) (unknown) Eos % (Auto) 0.8 L (units unknown) (unknown) (unknown) (no date) (unknown) (unknown) Eos % (Auto) (units unknown) (unknown) (unknown) (no date) (unknown) (unknown) Essential hypertension (units unknown) (unknown) (unknown) (no date) (unknown) (unknown) Estimated GFR > 60 (units unknown) (unknown) (unknown) (no date) (unknown) (unknown) Estimated GFR (units unknown) (unknown) (unknown) (no date) (unknown) (unknown) Exam Narrative: (units unknown) (unknown) (unknown) (no date) (unknown) (unknown) Exam (units unknown) (unknown) (unknown) (no date) (unknown) (unknown) Family History (units unknown) (unknown) (unknown) (no date) (unknown) (unknown) Father Diabetes mellitus (units unknown) (unknown) (unknown) (no date) (unknown) (unknown) Fraction of Inspired Oxygen 21 (units unknown) (unknown) (unknown) (no date) (unknown) (unknown) Full (units unknown) (unknown) (unknown) (no date) (unknown) (unknown) GEN:? Pleasant elderly male, alert and oriented x 2, NAD (units unknown) (unknown) (unknown) (no date) (unknown) (unknown) Globulin 2.5 (units unknown) (unknown) (unknown) (no date) (unknown) (unknown) Globulin (units unknown) (unknown) (unknown) (no date) (unknown) (unknown) Glucose 86 (units unknown) (unknown) (unknown) (no date) (unknown) (unknown) Glucose (units unknown) (unknown) (unknown) (no date) (unknown) (unknown) HEENT:NC, Face symmetric (units unknown) (unknown) (unknown) (no date) (unknown) (unknown) Hct 43.6 (units unknown) (unknown) (unknown) (no date) (unknown) (unknown) Hct (units unknown) (unknown) (unknown) (no date) (unknown) (unknown) He did have rapid AFib on the date of admission that has not recurred.? Continue (units unknown) (unknown) (unknown) (no date) (unknown) (unknown) Hep B Core IgM Ab Negative (units unknown) (unknown) (unknown) (no date) (unknown) (unknown) Hep B Core IgM Ab (units unknown) (unknown) (unknown) (no date) (unknown) (unknown) Hep Bs Antigen Negative (units unknown) (unknown) (unknown) (no date) (unknown) (unknown) Hep Bs Antigen (units unknown) (unknown) (unknown) (no date) (unknown) (unknown) Hep C Ab Signal/Cutoff Comment (units unknown) (unknown) (unknown) (no date) (unknown) (unknown) Hep C Ab Signal/Cutoff (units unknown) (unknown) (unknown) (no date) (unknown) (unknown) Hepatitis A IgM Ab Negative (units unknown) (unknown) (unknown) (no date) (unknown) (unknown) Hepatitis A IgM Ab (units unknown) (unknown) (unknown) (no date) (unknown) (unknown) Hepatitis C Antibody Non reactive (units unknown) (unknown) (unknown) (no date) (unknown) (unknown) Hepatitis C Antibody (units unknown) (unknown) (unknown) (no date) (unknown) (unknown) Hepatocellular carcinoma is also in the differential.? Patient has no known (units unknown) (unknown) (unknown) (no date) (unknown) (unknown) Hgb 14.9 (units unknown) (unknown) (unknown) (no date) (unknown) (unknown) Hgb (units unknown) (unknown) (unknown) (no date) (unknown) (unknown) History of melanoma (units unknown) (unknown) (unknown) (no date) (unknown) (unknown) History of permanent cardiac pacemaker placement (units unknown) (unknown) (unknown) (no date) (unknown) (unknown) I spent a total of [] minutes of critical care time on this patient's care (units unknown) (unknown) (unknown) (no date) (unknown) (unknown) [address] [address] (units unknown) (unknown) (unknown) (no date) (unknown) (unknown) Laboratory Results - last 24 hr (units unknown) (unknown) (unknown) (no date) (unknown) (unknown) Labs (units unknown) (unknown) (unknown) (no date) (unknown) (unknown) Labs: (units unknown) (unknown) (unknown) (no date) (unknown) (unknown) Lymph # (Auto) 400 L (units unknown) (unknown) (unknown) (no date) (unknown) (unknown) Lymph # (Auto) (units unknown) (unknown) (unknown) (no date) (unknown) (unknown) Lymph % (Auto) 6.6 L (units unknown) (unknown) (unknown) (no date) (unknown) (unknown) Lymph % (Auto) (units unknown) (unknown) (unknown) (no date) (unknown) (unknown) MCH 30.9 (units unknown) (unknown) (unknown) (no date) (unknown) (unknown) MCH (units unknown) (unknown) (unknown) (no date) (unknown) (unknown) MCHC 34.2 (units unknown) (unknown) (unknown) (no date) (unknown) (unknown) MCHC (units unknown) (unknown) (unknown) (no date) (unknown) (unknown) MCV 90.3 (units unknown) (unknown) (unknown) (no date) (unknown) (unknown) MCV (units unknown) (unknown) (unknown) (no date) (unknown) (unknown) Medical History (Updated 06/17/22 @ 00:55 by Hawa Michael [facility]) (units unknown) (unknown) (unknown) (no date) (unknown) (unknown) [place] # (Auto) 1000 H (units unknown) (unknown) (unknown) (no date) (unknown) (unknown) [place] # (Auto) (units unknown) (unknown) (unknown) (no date) (unknown) (unknown) [place] % (Auto) 15.4 H (units unknown) (unknown) (unknown) (no date) (unknown) (unknown) [place] % (Auto) (units unknown) (unknown) (unknown) (no date) (unknown) (unknown) Mother No problems noted. (units unknown) (unknown) (unknown) (no date) (unknown) (unknown) NEURO: Alert and oriented x 2, nonfocal (units unknown) (unknown) (unknown) (no date) (unknown) (unknown) Narrative (units unknown) (unknown) (unknown) (no date) (unknown) (unknown) Neut # (Auto) 5100 (units unknown) (unknown) (unknown) (no date) (unknown) (unknown) Neut # (Auto) (units unknown) (unknown) (unknown) (no date) (unknown) (unknown) Neut % (Auto) 76.3 H (units unknown) (unknown) (unknown) (no date) (unknown) (unknown) Neut % (Auto) (units unknown) (unknown) (unknown) (no date) (unknown) (unknown) Objective (units unknown) (unknown) (unknown) (no date) (unknown) (unknown) Oxygen Delivery Method Room Air (units unknown) (unknown) (unknown) (no date) (unknown) (unknown) Oxygen Flow Rate 0 (units unknown) (unknown) (unknown) (no date) (unknown) (unknown) PFSH (units unknown) (unknown) (unknown) (no date) (unknown) (unknown) Pacemaker (units unknown) (unknown) (unknown) (no date) (unknown) (unknown) Patient appears to have ongoing mild encephalopathy, but overall is improved.? (units unknown) (unknown) (unknown) (no date) (unknown) (unknown) Patient has a known history of nevoid melanoma status post resection 2 years (units unknown) (unknown) (unknown) (no date) (unknown) (unknown) Patient has evidence of severe protein calorie malnutrition.? He has lost 30 lb (units unknown) (unknown) (unknown) (no date) (unknown) (unknown) Patient: Yoseph Cardoso MR#: [id number] (units unknown) (unknown) (unknown) (no date) (unknown) (unknown) Pending further determination of patient's goals of care. PT is recommending (units unknown) (unknown) (unknown) (no date) (unknown) (unknown) Phosphorus 3.3 (units unknown) (unknown) (unknown) (no date) (unknown) (unknown) Phosphorus (units unknown) (unknown) (unknown) (no date) (unknown) (unknown) Plt Count 185 (units unknown) (unknown) (unknown) (no date) (unknown) (unknown) Plt Count (units unknown) (unknown) (unknown) (no date) (unknown) (unknown) Potassium 4.4 (units unknown) (unknown) (unknown) (no date) (unknown) (unknown) Potassium (units unknown) (unknown) (unknown) (no date) (unknown) (unknown) Progress Note (units unknown) (unknown) (unknown) (no date) (unknown) (unknown) Prophylaxis (units unknown) (unknown) (unknown) (no date) (unknown) (unknown) Provider: Tommy Wells D.O. (units unknown) (unknown) (unknown) (no date) (unknown) (unknown) Pulse Oximetry 96 97 (units unknown) (unknown) (unknown) (no date) (unknown) (unknown) Pulse Rate 77 86 (units unknown) (unknown) (unknown) (no date) (unknown) (unknown) Quality (units unknown) (unknown) (unknown) (no date) (unknown) (unknown) RBC 4.83 (units unknown) (unknown) (unknown) (no date) (unknown) (unknown) RBC (units unknown) (unknown) (unknown) (no date) (unknown) (unknown) RDW 14.3 (units unknown) (unknown) (unknown) (no date) (unknown) (unknown) RDW (units unknown) (unknown) (unknown) (no date) (unknown) (unknown) Respiratory Rate 18 14 (units unknown) (unknown) (unknown) (no date) (unknown) (unknown) SKIN: warm and dry, no rash (units unknown) (unknown) (unknown) (no date) (unknown) (unknown) SNF rehab. (units unknown) (unknown) (unknown) (no date) (unknown) (unknown) SaO2/FiO2 Ratio 471 (units unknown) (unknown) (unknown) (no date) (unknown) (unknown) Signed By: (units unknown) (unknown) (unknown) (no date) (unknown) (unknown) Smoking Status: Never smoker (units unknown) (unknown) (unknown) (no date) (unknown) (unknown) Social History (units unknown) (unknown) (unknown) (no date) (unknown) (unknown) Sodium 133 L (units unknown) (unknown) (unknown) (no date) (unknown) (unknown) Sodium (units unknown) (unknown) (unknown) (no date) (unknown) (unknown) Surgical History (Updated 06/16/22 @ 21:27 by Hawa Michael [facility]-) (units unknown) (unknown) (unknown) (no date) (unknown) (unknown) Suspect this reflected SIRS rather than sepsis.? However, he does have evidence (units unknown) (unknown) (unknown) (no date) (unknown) (unknown) Temperature 97.0 F L (units unknown) (unknown) (unknown) (no date) (unknown) (unknown) Time Spent With Patient (units unknown) (unknown) (unknown) (no date) (unknown) (unknown) Total Bilirubin 2.4 H (units unknown) (unknown) (unknown) (no date) (unknown) (unknown) Total Bilirubin (units unknown) (unknown) (unknown) (no date) (unknown) (unknown) Total Protein 5.1 L (units unknown) (unknown) (unknown) (no date) (unknown) (unknown) Total Protein (units unknown) (unknown) (unknown) (no date) (unknown) (unknown) VTE (units unknown) (unknown) (unknown) (no date) (unknown) (unknown) Vital Signs (units unknown) (unknown) (unknown) (no date) (unknown) (unknown) WBC 6.7 (units unknown) (unknown) (unknown) (no date) (unknown) (unknown) WBC (units unknown) (unknown) (unknown) (no date) (unknown) (unknown) [place]. (units unknown) (unknown) (unknown) (no date) (unknown) (unknown) [Embedded Image Not Available] (units unknown) (unknown) (unknown) (no date) (unknown) (unknown) above.? Await dietitian recommendation. Will add MVI and thiamine. (units unknown) (unknown) (unknown) (no date) (unknown) (unknown) ago.? He now has multifocal lesions in the liver and spleen on imaging.? (units unknown) (unknown) (unknown) (no date) (unknown) (unknown) alcohol intake: current (units unknown) (unknown) (unknown) (no date) (unknown) (unknown) ambivalent. He wants to discuss things further w/his and children. If he (units unknown) (unknown) (unknown) (no date) (unknown) (unknown) any ill symptoms such as fevers or chills.? His white blood cell count remains (units unknown) (unknown) (unknown) (no date) (unknown) (unknown) continues to have encephalopathy, MRI brain should be performed to assess for (units unknown) (unknown) (unknown) (no date) (unknown) (unknown) decisions at this point.? Will await further input from family. (units unknown) (unknown) (unknown) (no date) (unknown) (unknown) here is negative thus far.? Continue Zosyn for now.? Await culture results from (units unknown) (unknown) (unknown) (no date) (unknown) (unknown) history of hepatitis.? In the differential was also infectious etiology.? That (units unknown) (unknown) (unknown) (no date) (unknown) (unknown) household members: spouse (units unknown) (unknown) (unknown) (no date) (unknown) (unknown) negative to date.? He is afebrile with a normal white blood cell count. (units unknown) (unknown) (unknown) (no date) (unknown) (unknown) normal.? 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 Discussed with the (units unknown) (unknown) (unknown) (no date) (unknown) (unknown) of UTI.? He remains on empiric Zosyn therapy.? Blood and urine cultures are (units unknown) (unknown) (unknown) (no date) (unknown) (unknown) over the last few months.? 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 He has not had (units unknown) (unknown) (unknown) (no date) (unknown) (unknown) today; this time is exclusive of procedural time. (units unknown) (unknown) (unknown) (no date) (unknown) (unknown) treatment options if he would consider treatment or palliative care. He remains (units unknown) (unknown) (unknown) (no date) (unknown) (unknown) yesterday. Today, pt does not have recollection of the conversation.? I have (units unknown) (unknown) Result panel 254 (unknown) (no date) (unknown) (unknown) (no value) (units unknown) (unknown) (unknown) (no date) (unknown) (unknown) NO GROWTH AFTER 72 HOURS (units unknown) (unknown) Result panel 255 (unknown) (no date) (unknown) (unknown) (no value) (units unknown) (unknown) (unknown) (no date) (unknown) (unknown) NO GROWTH AFTER 72 HOURS (units unknown) (unknown) Result panel 256 (unknown) (no date) (unknown) (unknown) (no value) (units unknown) (unknown) (unknown) (no date) (unknown) (unknown) [id number] (units unknown) (unknown) (unknown) (no date) (unknown) (unknown) 06/21/22 (units unknown) (unknown) (unknown) (no date) (unknown) (unknown) [address] [place] [address] (units unknown) (unknown) (unknown) (no date) (unknown) (unknown) Accession Number: [id number] (units unknown) (unknown) (unknown) (no date) (unknown) (unknown) Age/Sex: 86 / M Date of Service: (units unknown) (unknown) (unknown) (no date) (unknown) (unknown) [place] [address] (units unknown) (unknown) (unknown) (no date) (unknown) (unknown) Approved by: Johnathan Lane M.D. on 06/21/2022 at 15:07 (units unknown) (unknown) (unknown) (no date) (unknown) (unknown) Biopsy site: Posterior right lobe of the liver (units unknown) (unknown) (unknown) (no date) (unknown) (unknown) COMPARISON: [facility], CT, CT [facility], 06/16/2022, 21:22. (units unknown) (unknown) (unknown) (no date) (unknown) (unknown) CT Scan Report (units unknown) (unknown) (unknown) (no date) (unknown) (unknown) CT guidance, a core biopsy trocar and needle set was advanced to the biopsy (units unknown) (unknown) (unknown) (no date) (unknown) (unknown) Complications: None. (units unknown) (unknown) (unknown) (no date) (unknown) (unknown) : 1935 Acct:[id number] (units unknown) (unknown) (unknown) (no date) (unknown) (unknown) Dictated by: Johnathan Lane M.D. on 06/21/2022 at 15:00 (units unknown) (unknown) (unknown) (no date) (unknown) (unknown) FINDINGS: (units unknown) (unknown) (unknown) (no date) (unknown) (unknown) IMPRESSION: Successful CT-guided biopsy of the previously demonstrated lesion (units unknown) (unknown) (unknown) (no date) (unknown) (unknown) INDICATIONS: liver lesion, history of melanoma (units unknown) (unknown) (unknown) (no date) (unknown) (unknown) [facility] (units unknown) (unknown) (unknown) (no date) (unknown) (unknown) Loc: AC 206-1 (units unknown) (unknown) (unknown) (no date) (unknown) (unknown) Medications: 1% lidocaine for local anaesthesia. IV Fentanyl and Versed for (units unknown) (unknown) (unknown) (no date) (unknown) (unknown) Needle: 18 gauge biopsy needle with introducer trocar. (units unknown) (unknown) (unknown) (no date) (unknown) (unknown) Number of passes: 4 (units unknown) (unknown) (unknown) (no date) (unknown) (unknown) Ordering Provider: Tommy Wells D.O. (units unknown) (unknown) (unknown) (no date) (unknown) (unknown) PROCEDURE: CT BIOPSY LIVER (units unknown) (unknown) (unknown) (no date) (unknown) (unknown) Patient: Yoseph Cardoso MR#: [id number] (units unknown) (unknown) (unknown) (no date) (unknown) (unknown) Procedure: CT biopsy liver (units unknown) (unknown) (unknown) (no date) (unknown) (unknown) Sedation analgesia for 15 minutes. (units unknown) (unknown) (unknown) (no date) (unknown) (unknown) Signed (units unknown) (unknown) (unknown) (no date) (unknown) (unknown) TECHNIQUE: (units unknown) (unknown) (unknown) (no date) (unknown) (unknown) The indications, alternatives, benefits, risks, and possible complications of (units unknown) (unknown) (unknown) (no date) (unknown) (unknown) The patient was brought to the CT suite and fringe knotter spiral CT imaging was (units unknown) (unknown) (unknown) (no date) (unknown) (unknown) anaesthesia. Under (units unknown) (unknown) (unknown) (no date) (unknown) (unknown) conscious (units unknown) (unknown) (unknown) (no date) (unknown) (unknown) culture/gram stain. (units unknown) (unknown) (unknown) (no date) (unknown) (unknown) in the (units unknown) (unknown) (unknown) (no date) (unknown) (unknown) localization grid. The appropriate site for percutaneous access to the biopsy (units unknown) (unknown) (unknown) (no date) (unknown) (unknown) marked, was prepped and draped sterilely, and was infused with local (units unknown) (unknown) (unknown) (no date) (unknown) (unknown) patient was (units unknown) (unknown) (unknown) (no date) (unknown) (unknown) patient (units unknown) (unknown) (unknown) (no date) (unknown) (unknown) performed with (units unknown) (unknown) (unknown) (no date) (unknown) (unknown) posterior right lobe of the liver. Samples were sent for pathology analysis and (units unknown) (unknown) (unknown) (no date) (unknown) (unknown) procedure were communicated to the patient. Informed written consent from the (units unknown) (unknown) (unknown) (no date) (unknown) (unknown) sedation for 15 minutes (see nursing record). (units unknown) (unknown) (unknown) (no date) (unknown) (unknown) sent for post-procedure monitoring. (units unknown) (unknown) (unknown) (no date) (unknown) (unknown) specimen(s) were obtained. The trocar and needle were then removed, and the (units unknown) (unknown) (unknown) (no date) (unknown) (unknown) started by trained personnel. (units unknown) (unknown) (unknown) (no date) (unknown) (unknown) target was (units unknown) (unknown) (unknown) (no date) (unknown) (unknown) target, and (units unknown) (unknown) (unknown) (no date) (unknown) (unknown) the (units unknown) (unknown) (unknown) (no date) (unknown) (unknown) was obtained and placed in the chart. Continuous EKG and hemodynamic monitoring (units unknown) (unknown) (unknown) (no date) (unknown) (unknown) was (units unknown) (unknown) Result panel 257 (unknown) (no date) (unknown) (unknown) 1.3 (units unknown) (unknown) (unknown) (no date) (unknown) (unknown) 14.6 seconds (unknown) Result panel 258 (unknown) (no date) (unknown) (unknown) (no value) (units unknown) (unknown) (unknown) (no date) (unknown) (unknown) (past 8 hours): (units unknown) (unknown) (unknown) (no date) (unknown) (unknown) -CT guided liver biopsy with IR ordered, INR 1.3 (units unknown) (unknown) (unknown) (no date) (unknown) (unknown) -attempted to contact patient's oncology/derm specialist at Dr. Arianna Reeder, (units unknown) (unknown) (unknown) (no date) (unknown) (unknown) [id number] (units unknown) (unknown) (unknown) (no date) (unknown) (unknown) 06/16/22 06/19/22 06/19/22 (units unknown) (unknown) (unknown) (no date) (unknown) (unknown) 06/19/22 06:08 (units unknown) (unknown) (unknown) (no date) (unknown) (unknown) 06/19/22 1539 (units unknown) (unknown) (unknown) (no date) (unknown) (unknown) 06/19/22 (units unknown) (unknown) (unknown) (no date) (unknown) (unknown) 04:40 06/19/22 (units unknown) (unknown) (unknown) (no date) (unknown) (unknown) 06:08 (units unknown) (unknown) (unknown) (no date) (unknown) (unknown) 08:26 (units unknown) (unknown) (unknown) (no date) (unknown) (unknown) 1. Concern for metastatic disease (units unknown) (unknown) (unknown) (no date) (unknown) (unknown) 2. Sepsis ruled out (units unknown) (unknown) (unknown) (no date) (unknown) (unknown) 21:57 06:08 06:08 (units unknown) (unknown) (unknown) (no date) (unknown) (unknown) 3. UTI, treated (units unknown) (unknown) (unknown) (no date) (unknown) (unknown) 4. Acute metabolic encephalopathy, improving (units unknown) (unknown) (unknown) (no date) (unknown) (unknown) 5. Essential hypertension (units unknown) (unknown) (unknown) (no date) (unknown) (unknown) 6. Atrial fibrillation (units unknown) (unknown) (unknown) (no date) (unknown) (unknown) 7. Malnutrition, severe (units unknown) (unknown) (unknown) (no date) (unknown) (unknown) ? (units unknown) (unknown) (unknown) (no date) (unknown) (unknown) ABD: Soft, NT/ND, BT present in all 4 quadrants, no organomegaly or masses (units unknown) (unknown) (unknown) (no date) (unknown) (unknown) ALT 52 H (units unknown) (unknown) (unknown) (no date) (unknown) (unknown) ALT (units unknown) (unknown) (unknown) (no date) (unknown) (unknown) AST 59 (units unknown) (unknown) (unknown) (no date) (unknown) (unknown) AST (units unknown) (unknown) (unknown) (no date) (unknown) (unknown) Age/Sex: 86 / M (units unknown) (unknown) (unknown) (no date) (unknown) (unknown) Albumin 2.6 L (units unknown) (unknown) (unknown) (no date) (unknown) (unknown) Albumin (units unknown) (unknown) (unknown) (no date) (unknown) (unknown) Albumin/Globulin Ratio 1.0 (units unknown) (unknown) (unknown) (no date) (unknown) (unknown) Albumin/Globulin Ratio (units unknown) (unknown) (unknown) (no date) (unknown) (unknown) Alkaline Phosphatase 463 H (units unknown) (unknown) (unknown) (no date) (unknown) (unknown) Alkaline Phosphatase (units unknown) (unknown) (unknown) (no date) (unknown) (unknown) Although he is alert and oriented today, he appearsto be unable to make complex (units unknown) (unknown) (unknown) (no date) (unknown) (unknown) Assessment + Plan narrative: (units unknown) (unknown) (unknown) (no date) (unknown) (unknown) Assessment + Plan (units unknown) (unknown) (unknown) (no date) (unknown) (unknown) Asthma (units unknown) (unknown) (unknown) (no date) (unknown) (unknown) Atrial fibrillation (units unknown) (unknown) (unknown) (no date) (unknown) (unknown) BP normotensive today. Continue amlodipine. (units unknown) (unknown) (unknown) (no date) (unknown) (unknown) BUN 25 H (units unknown) (unknown) (unknown) (no date) (unknown) (unknown) BUN (units unknown) (unknown) (unknown) (no date) (unknown) (unknown) BUN/Creatinine Ratio 26.3 H (units unknown) (unknown) (unknown) (no date) (unknown) (unknown) BUN/Creatinine Ratio (units unknown) (unknown) (unknown) (no date) (unknown) (unknown) Baso # (Auto) 100 (units unknown) (unknown) (unknown) (no date) (unknown) (unknown) Baso # (Auto) (units unknown) (unknown) (unknown) (no date) (unknown) (unknown) Baso % (Auto) 0.9 (units unknown) (unknown) (unknown) (no date) (unknown) (unknown) Baso % (Auto) (units unknown) (unknown) (unknown) (no date) (unknown) (unknown) Blood Pressure 156/76 H (units unknown) (unknown) (unknown) (no date) (unknown) (unknown) CHEST: Respiratory excursions symmetric, CTAB (units unknown) (unknown) (unknown) (no date) (unknown) (unknown) CV: irregularly irregular, no M/R/G (units unknown) (unknown) (unknown) (no date) (unknown) (unknown) Calcium 7.7 L (units unknown) (unknown) (unknown) (no date) (unknown) (unknown) Calcium (units unknown) (unknown) (unknown) (no date) (unknown) (unknown) Carbon Dioxide 25 (units unknown) (unknown) (unknown) (no date) (unknown) (unknown) Carbon Dioxide (units unknown) (unknown) (unknown) (no date) (unknown) (unknown) Chloride 102 (units unknown) (unknown) (unknown) (no date) (unknown) (unknown) Chloride (units unknown) (unknown) (unknown) (no date) (unknown) (unknown) Chronic anticoagulation (units unknown) (unknown) (unknown) (no date) (unknown) (unknown) Code status (units unknown) (unknown) (unknown) (no date) (unknown) (unknown) Creatinine 0.95 (units unknown) (unknown) (unknown) (no date) (unknown) (unknown) Creatinine (units unknown) (unknown) (unknown) (no date) (unknown) (unknown) Critical Care time: (units unknown) (unknown) (unknown) (no date) (unknown) (unknown) : 1935 Acct:[id number] (units unknown) (unknown) (unknown) (no date) (unknown) (unknown) Date Patient Seen: 06/19/22 (units unknown) (unknown) (unknown) (no date) (unknown) (unknown) Date of Service: 06/16/22 (units unknown) (unknown) (unknown) (no date) (unknown) (unknown) Deep Vein Thrombosis/Pulmonar y Embolism Present on Admission: No (units unknown) (unknown) (unknown) (no date) (unknown) (unknown) Diagnosed at [facility].? Urine culture (units unknown) (unknown) (unknown) (no date) (unknown) (unknown) Disposition (units unknown) (unknown) (unknown) (no date) (unknown) (unknown) EXTR: warm, well perfused, no C/C/E (units unknown) (unknown) (unknown) (no date) (unknown) (unknown) Eliquis for biopsy.? He is status post pacemaker. (units unknown) (unknown) (unknown) (no date) (unknown) (unknown) Eos # (Auto) 100 (units unknown) (unknown) (unknown) (no date) (unknown) (unknown) Eos # (Auto) (units unknown) (unknown) (unknown) (no date) (unknown) (unknown) Eos % (Auto) 0.8 L (units unknown) (unknown) (unknown) (no date) (unknown) (unknown) Eos % (Auto) (units unknown) (unknown) (unknown) (no date) (unknown) (unknown) Essential hypertension (units unknown) (unknown) (unknown) (no date) (unknown) (unknown) Estimated GFR > 60 (units unknown) (unknown) (unknown) (no date) (unknown) (unknown) Estimated GFR (units unknown) (unknown) (unknown) (no date) (unknown) (unknown) Exam Narrative: (units unknown) (unknown) (unknown) (no date) (unknown) (unknown) Exam (units unknown) (unknown) (unknown) (no date) (unknown) (unknown) Family History (units unknown) (unknown) (unknown) (no date) (unknown) (unknown) Father Diabetes mellitus (units unknown) (unknown) (unknown) (no date) (unknown) (unknown) Fraction of Inspired Oxygen 21 (units unknown) (unknown) (unknown) (no date) (unknown) (unknown) Full (units unknown) (unknown) (unknown) (no date) (unknown) (unknown) GEN:? Pleasant elderly male, alert and oriented x 2, NAD, hard of hearing (units unknown) (unknown) (unknown) (no date) (unknown) (unknown) Globulin 2.5 (units unknown) (unknown) (unknown) (no date) (unknown) (unknown) Globulin (units unknown) (unknown) (unknown) (no date) (unknown) (unknown) Glucose 86 (units unknown) (unknown) (unknown) (no date) (unknown) (unknown) Glucose (units unknown) (unknown) (unknown) (no date) (unknown) (unknown) HEENT:NC, Face symmetric (units unknown) (unknown) (unknown) (no date) (unknown) (unknown) Hct 43.6 (units unknown) (unknown) (unknown) (no date) (unknown) (unknown) Hct (units unknown) (unknown) (unknown) (no date) (unknown) (unknown) He did have rapid AFib on the date of admission that has not recurred.? Holding (units unknown) (unknown) (unknown) (no date) (unknown) (unknown) Hep B Core IgM Ab Negative (units unknown) (unknown) (unknown) (no date) (unknown) (unknown) Hep B Core IgM Ab (units unknown) (unknown) (unknown) (no date) (unknown) (unknown) Hep Bs Antigen Negative (units unknown) (unknown) (unknown) (no date) (unknown) (unknown) Hep Bs Antigen (units unknown) (unknown) (unknown) (no date) (unknown) (unknown) Hep C Ab Signal/Cutoff Comment (units unknown) (unknown) (unknown) (no date) (unknown) (unknown) Hep C Ab Signal/Cutoff (units unknown) (unknown) (unknown) (no date) (unknown) (unknown) Hepatitis A IgM Ab Negative (units unknown) (unknown) (unknown) (no date) (unknown) (unknown) Hepatitis A IgM Ab (units unknown) (unknown) (unknown) (no date) (unknown) (unknown) Hepatitis C Antibody Non reactive (units unknown) (unknown) (unknown) (no date) (unknown) (unknown) Hepatitis C Antibody (units unknown) (unknown) (unknown) (no date) (unknown) (unknown) Hepatocellular carcinoma is also in the differential.? Patient has no known (units unknown) (unknown) (unknown) (no date) (unknown) (unknown) Hgb 14.9 (units unknown) (unknown) (unknown) (no date) (unknown) (unknown) Hgb (units unknown) (unknown) (unknown) (no date) (unknown) (unknown) History of melanoma (units unknown) (unknown) (unknown) (no date) (unknown) (unknown) History of permanent cardiac pacemaker placement (units unknown) (unknown) (unknown) (no date) (unknown) (unknown) Holding for biopsy (units unknown) (unknown) (unknown) (no date) (unknown) (unknown) I spent a total of [] minutes of critical care time on this patient's care (units unknown) (unknown) (unknown) (no date) (unknown) (unknown) Initially on empiric Zosyn therapy.? Blood and urine cultures are negative to (units unknown) (unknown) (unknown) (no date) (unknown) (unknown) Interval history: (units unknown) (unknown) (unknown) (no date) (unknown) (unknown) [address] [address] (units unknown) (unknown) (unknown) (no date) (unknown) (unknown) Laboratory Results - last 24 hr (units unknown) (unknown) (unknown) (no date) (unknown) (unknown) Labs (units unknown) (unknown) (unknown) (no date) (unknown) (unknown) Labs: (units unknown) (unknown) (unknown) (no date) (unknown) (unknown) Likely home on 06/20 following liver biopsy. (units unknown) (unknown) (unknown) (no date) (unknown) (unknown) Lymph # (Auto) 400 L (units unknown) (unknown) (unknown) (no date) (unknown) (unknown) Lymph # (Auto) (units unknown) (unknown) (unknown) (no date) (unknown) (unknown) Lymph % (Auto) 6.6 L (units unknown) (unknown) (unknown) (no date) (unknown) (unknown) Lymph % (Auto) (units unknown) (unknown) (unknown) (no date) (unknown) (unknown) MCH 30.9 (units unknown) (unknown) (unknown) (no date) (unknown) (unknown) MCH (units unknown) (unknown) (unknown) (no date) (unknown) (unknown) MCHC 34.2 (units unknown) (unknown) (unknown) (no date) (unknown) (unknown) MCHC (units unknown) (unknown) (unknown) (no date) (unknown) (unknown) MCV 90.3 (units unknown) (unknown) (unknown) (no date) (unknown) (unknown) MCV (units unknown) (unknown) (unknown) (no date) (unknown) (unknown) Medical History (Updated 06/17/22 @ 00:55 by Hawa Michael [facility]) (units unknown) (unknown) (unknown) (no date) (unknown) (unknown) [place] # (Auto) 1000 H (units unknown) (unknown) (unknown) (no date) (unknown) (unknown) [place] # (Auto) (units unknown) (unknown) (unknown) (no date) (unknown) (unknown) [place] % (Auto) 15.4 H (units unknown) (unknown) (unknown) (no date) (unknown) (unknown) [place] % (Auto) (units unknown) (unknown) (unknown) (no date) (unknown) (unknown) Mother No problems noted. (units unknown) (unknown) (unknown) (no date) (unknown) (unknown) NEURO: Alert and oriented x 2, nonfocal (units unknown) (unknown) (unknown) (no date) (unknown) (unknown) Narrative (units unknown) (unknown) (unknown) (no date) (unknown) (unknown) Neut # (Auto) 5100 (units unknown) (unknown) (unknown) (no date) (unknown) (unknown) Neut # (Auto) (units unknown) (unknown) (unknown) (no date) (unknown) (unknown) Neut % (Auto) 76.3 H (units unknown) (unknown) (unknown) (no date) (unknown) (unknown) Neut % (Auto) (units unknown) (unknown) (unknown) (no date) (unknown) (unknown) Objective (units unknown) (unknown) (unknown) (no date) (unknown) (unknown) Oxygen Delivery Method Room Air (units unknown) (unknown) (unknown) (no date) (unknown) (unknown) Oxygen Flow Rate 0 (units unknown) (unknown) (unknown) (no date) (unknown) (unknown) PFSH (units unknown) (unknown) (unknown) (no date) (unknown) (unknown) Pacemaker (units unknown) (unknown) (unknown) (no date) (unknown) (unknown) Patient appears to have ongoing mild encephalopathy, but overall is improved.? (units unknown) (unknown) (unknown) (no date) (unknown) (unknown) Patient feels well and is at bedside. We discussed a liver biopsy would be (units unknown) (unknown) (unknown) (no date) (unknown) (unknown) Patient has a known history of nevoid melanoma status post resection 2 years (units unknown) (unknown) (unknown) (no date) (unknown) (unknown) Patient has evidence of severe protein calorie malnutrition.? He has lost 30 lb (units unknown) (unknown) (unknown) (no date) (unknown) (unknown) Patient: Yoseph Cardoso MR#: [id number] (units unknown) (unknown) (unknown) (no date) (unknown) (unknown) Phosphorus 3.3 (units unknown) (unknown) (unknown) (no date) (unknown) (unknown) Phosphorus (units unknown) (unknown) (unknown) (no date) (unknown) (unknown) Plt Count 185 (units unknown) (unknown) (unknown) (no date) (unknown) (unknown) Plt Count (units unknown) (unknown) (unknown) (no date) (unknown) (unknown) Potassium 4.4 (units unknown) (unknown) (unknown) (no date) (unknown) (unknown) Potassium (units unknown) (unknown) (unknown) (no date) (unknown) (unknown) Progress Note (units unknown) (unknown) (unknown) (no date) (unknown) (unknown) Prophylaxis (units unknown) (unknown) (unknown) (no date) (unknown) (unknown) Provider: Tommy Wells D.O. (units unknown) (unknown) (unknown) (no date) (unknown) (unknown) Pulse Oximetry 96 97 (units unknown) (unknown) (unknown) (no date) (unknown) (unknown) Pulse Rate 77 86 (units unknown) (unknown) (unknown) (no date) (unknown) (unknown) Quality (units unknown) (unknown) (unknown) (no date) (unknown) (unknown) RBC 4.83 (units unknown) (unknown) (unknown) (no date) (unknown) (unknown) RBC (units unknown) (unknown) (unknown) (no date) (unknown) (unknown) RDW 14.3 (units unknown) (unknown) (unknown) (no date) (unknown) (unknown) RDW (units unknown) (unknown) (unknown) (no date) (unknown) (unknown) Respiratory Rate 18 14 (units unknown) (unknown) (unknown) (no date) (unknown) (unknown) SKIN: warm and dry, no rash (units unknown) (unknown) (unknown) (no date) (unknown) (unknown) SaO2/FiO2 Ratio 471 (units unknown) (unknown) (unknown) (no date) (unknown) (unknown) Signed By:<Electronically signed by Tommy Wells D.O.> (units unknown) (unknown) (unknown) (no date) (unknown) (unknown) Smoking Status: Never smoker (units unknown) (unknown) (unknown) (no date) (unknown) (unknown) Social History (units unknown) (unknown) (unknown) (no date) (unknown) (unknown) Sodium 133 L (units unknown) (unknown) (unknown) (no date) (unknown) (unknown) Sodium (units unknown) (unknown) (unknown) (no date) (unknown) (unknown) Subjective (units unknown) (unknown) (unknown) (no date) (unknown) (unknown) Surgical History (Updated 06/16/22 @ 21:27 by Hawa Michael [facility]) (units unknown) (unknown) (unknown) (no date) (unknown) (unknown) Temperature 97.0 F L (units unknown) (unknown) (unknown) (no date) (unknown) (unknown) Time Spent With Patient (units unknown) (unknown) (unknown) (no date) (unknown) (unknown) Total Bilirubin 2.4 H (units unknown) (unknown) (unknown) (no date) (unknown) (unknown) Total Bilirubin (units unknown) (unknown) (unknown) (no date) (unknown) (unknown) Total Protein 5.1 L (units unknown) (unknown) (unknown) (no date) (unknown) (unknown) Total Protein (units unknown) (unknown) (unknown) (no date) (unknown) (unknown) VM box full. Patient has appt with her next week. (units unknown) (unknown) (unknown) (no date) (unknown) (unknown) VTE (units unknown) (unknown) (unknown) (no date) (unknown) (unknown) Vital Signs (units unknown) (unknown) (unknown) (no date) (unknown) (unknown) WBC 6.7 (units unknown) (unknown) (unknown) (no date) (unknown) (unknown) WBC (units unknown) (unknown) (unknown) (no date) (unknown) (unknown) Will have this arranged with IR. (units unknown) (unknown) (unknown) (no date) (unknown) (unknown) [Embedded Image Not Available] (units unknown) (unknown) (unknown) (no date) (unknown) (unknown) above.? Await dietitian recommendation. Will add MVI and thiamine. (units unknown) (unknown) (unknown) (no date) (unknown) (unknown) ago.? He now has multifocal lesions in the liver and spleen on imaging.? (units unknown) (unknown) (unknown) (no date) (unknown) (unknown) alcohol intake: current (units unknown) (unknown) (unknown) (no date) (unknown) (unknown) any ill symptoms such as fevers or chills.? His white blood cell count remains (units unknown) (unknown) (unknown) (no date) (unknown) (unknown) date.? He is afebrile with a normal white blood cell count. Abx stopped. (units unknown) (unknown) (unknown) (no date) (unknown) (unknown) decisions at this point.? Will await further input from family. (units unknown) (unknown) (unknown) (no date) (unknown) (unknown) family. (units unknown) (unknown) (unknown) (no date) (unknown) (unknown) here is negative thus far.?Zosyn stopped as above (units unknown) (unknown) (unknown) (no date) (unknown) (unknown) history of hepatitis.? In the differential was also infectious etiology.? That (units unknown) (unknown) (unknown) (no date) (unknown) (unknown) household members: spouse (units unknown) (unknown) (unknown) (no date) (unknown) (unknown) normal.? 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 Discussed with the (units unknown) (unknown) (unknown) (no date) (unknown) (unknown) over the last few months.? 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 He has not had (units unknown) (unknown) (unknown) (no date) (unknown) (unknown) today; this time is exclusive of procedural time. (units unknown) (unknown) (unknown) (no date) (unknown) (unknown) warranted to determine the etiology of the liver lesion which agreed to. (units unknown) (unknown) (unknown) (no date) (unknown) (unknown) yesterday. She thinks a biopsy is warranted after speaking with patient and (units unknown) (unknown) Result panel 259 (unknown) (no date) (unknown) (unknown) 0 /ul (unknown) (unknown) (no date) (unknown) (unknown) 0.5 % (unknown) (unknown) (no date) (unknown) (unknown) 0.8 % (unknown) (unknown) (no date) (unknown) (unknown) 100 /ul (unknown) (unknown) (no date) (unknown) (unknown) 1000 /ul (unknown) (unknown) (no date) (unknown) (unknown) 14.6 % (unknown) (unknown) (no date) (unknown) (unknown) 14.7 % (unknown) (unknown) (no date) (unknown) (unknown) 15.7 g/dl (unknown) (unknown) (no date) (unknown) (unknown) 176 x10 3/ul (unknown) (unknown) (no date) (unknown) (unknown) 30.5 pg (unknown) (unknown) (no date) (unknown) (unknown) 33.2 % (unknown) (unknown) (no date) (unknown) (unknown) 47.4 % (unknown) (unknown) (no date) (unknown) (unknown) 5.17 x10 6/ul (unknown) (unknown) (no date) (unknown) (unknown) 5100 /ul (unknown) (unknown) (no date) (unknown) (unknown) 6.7 x10 3/ul (unknown) (unknown) (no date) (unknown) (unknown) 600 /ul (unknown) (unknown) (no date) (unknown) (unknown) 75.5 % (unknown) (unknown) (no date) (unknown) (unknown) 8.5 % (unknown) (unknown) (no date) (unknown) (unknown) 91.7 fl (unknown) Result panel 260 (unknown) (no date) (unknown) (unknown) 3.1 mg/dl (unknown) Result panel 261 (unknown) (no date) (unknown) (unknown) > 60 ml/min (unknown) (unknown) (no date) (unknown) (unknown) > 60 ml/min (unknown) (unknown) (no date) (unknown) (unknown) 0.77 mg/dl (unknown) (unknown) (no date) (unknown) (unknown) 0.9 (units unknown) (unknown) (unknown) (no date) (unknown) (unknown) 103 mmol/l (unknown) (unknown) (no date) (unknown) (unknown) 135 mmol/l (unknown) (unknown) (no date) (unknown) (unknown) 2.5 mg/dl (unknown) (unknown) (no date) (unknown) (unknown) 2.6 g/dl (unknown) (unknown) (no date) (unknown) (unknown) 2.8 g/dl (unknown) (unknown) (no date) (unknown) (unknown) 23 mmol/l (unknown) (unknown) (no date) (unknown) (unknown) 24 mg/dl (unknown) (unknown) (no date) (unknown) (unknown) 31.2 (units unknown) (unknown) (unknown) (no date) (unknown) (unknown) 4.1 mmol/l (unknown) (unknown) (no date) (unknown) (unknown) 5.4 g/dl (unknown) (unknown) (no date) (unknown) (unknown) 52 iu/l (unknown) (unknown) (no date) (unknown) (unknown) 559 u/l (unknown) (unknown) (no date) (unknown) (unknown) 61 iu/l (unknown) (unknown) (no date) (unknown) (unknown) 7.8 mg/dl (unknown) (unknown) (no date) (unknown) (unknown) 85 mg/dl (unknown) (unknown) (no date) (unknown) (unknown) 85 mg/dl (unknown) Result panel 262 (unknown) (no date) (unknown) (unknown) (no value) (units unknown) (unknown) (unknown) (no date) (unknown) (unknown) <Electronically signed by Matt Swartz MD> (units unknown) (unknown) (unknown) (no date) (unknown) (unknown) ([place] HFA) (units unknown) (unknown) (unknown) (no date) (unknown) (unknown) [id number] (units unknown) (unknown) (unknown) (no date) (unknown) (unknown) 06/16/22 06/16/22 06/16/22 Range/Units (units unknown) (unknown) (unknown) (no date) (unknown) (unknown) 06/16/22 12:35 (units unknown) (unknown) (unknown) (no date) (unknown) (unknown) 06/16/22 Range/Units (units unknown) (unknown) (unknown) (no date) (unknown) (unknown) 06/16/22 (units unknown) (unknown) (unknown) (no date) (unknown) (unknown) 06/20/22 0759 (units unknown) (unknown) (unknown) (no date) (unknown) (unknown) [address] [place] [address] (units unknown) (unknown) (unknown) (no date) (unknown) (unknown) 12:21 06/16/22 (units unknown) (unknown) (unknown) (no date) (unknown) (unknown) 12:30 06/16/22 (units unknown) (unknown) (unknown) (no date) (unknown) (unknown) 12:30 (units unknown) (unknown) (unknown) (no date) (unknown) (unknown) 12:35 12:35 12:35 (units unknown) (unknown) (unknown) (no date) (unknown) (unknown) 12:45 06/16/22 (units unknown) (unknown) (unknown) (no date) (unknown) (unknown) 13:00 06/16/22 (units unknown) (unknown) (unknown) (no date) (unknown) (unknown) 13:00 (units unknown) (unknown) (unknown) (no date) (unknown) (unknown) 13:15 06/16/22 (units unknown) (unknown) (unknown) (no date) (unknown) (unknown) 13:15 (units unknown) (unknown) (unknown) (no date) (unknown) (unknown) 13:30 06/16/22 (units unknown) (unknown) (unknown) (no date) (unknown) (unknown) 13:45 06/16/22 (units unknown) (unknown) (unknown) (no date) (unknown) (unknown) 13:46 06/16/22 (units unknown) (unknown) (unknown) (no date) (unknown) (unknown) 13:46 (units unknown) (unknown) (unknown) (no date) (unknown) (unknown) 14:00 06/16/22 (units unknown) (unknown) (unknown) (no date) (unknown) (unknown) 14:00 (units unknown) (unknown) (unknown) (no date) (unknown) (unknown) 15:30 (units unknown) (unknown) (unknown) (no date) (unknown) (unknown) 4 mos (units unknown) (unknown) (unknown) (no date) (unknown) (unknown) 72 (units unknown) (unknown) (unknown) (no date) (unknown) (unknown) ? (units unknown) (unknown) (unknown) (no date) (unknown) (unknown) ALT (<50) IU/L (units unknown) (unknown) (unknown) (no date) (unknown) (unknown) ALT 63 H (<50) IU/L (units unknown) (unknown) (unknown) (no date) (unknown) (unknown) APTT (26-36) SECONDS (units unknown) (unknown) (unknown) (no date) (unknown) (unknown) APTT 38 H (26-36) SECONDS (units unknown) (unknown) (unknown) (no date) (unknown) (unknown) AST (17-59) IU/L (units unknown) (unknown) (unknown) (no date) (unknown) (unknown) AST 61 H (17-59) IU/L (units unknown) (unknown) (unknown) (no date) (unknown) (unknown) Accession Number: [id number] ?? (units unknown) (unknown) (unknown) (no date) (unknown) (unknown) Accession Number: [id number] ?? (units unknown) (unknown) (unknown) (no date) (unknown) (unknown) Accession Number: [id number] ?? (units unknown) (unknown) (unknown) (no date) (unknown) (unknown) Acct:[id number] (units unknown) (unknown) (unknown) (no date) (unknown) (unknown) Acetaminophen (Acetaminophen 325 Mg Tablet) 650 mg PO Q6H PRN (units unknown) (unknown) (unknown) (no date) (unknown) (unknown) Admin: 06/16/22 13:02 Dose: 1,000 mls/hr (units unknown) (unknown) (unknown) (no date) (unknown) (unknown) Admin: 06/16/22 21:51 Dose: 1,000 mls/hr (units unknown) (unknown) (unknown) (no date) (unknown) (unknown) Admin: 06/16/22 21:53 Dose: 200 mls/hr (units unknown) (unknown) (unknown) (no date) (unknown) (unknown) Admin: 06/17/22 01:12 Dose: 25 mls/hr (units unknown) (unknown) (unknown) (no date) (unknown) (unknown) Admin: 06/17/22 01:45 Dose: 84 mls/hr (units unknown) (unknown) (unknown) (no date) (unknown) (unknown) Admin: 06/17/22 05:52 Dose: 20 mg (units unknown) (unknown) (unknown) (no date) (unknown) (unknown) Admin: 06/17/22 08:39 Dose: 0.5 mg (units unknown) (unknown) (unknown) (no date) (unknown) (unknown) Admin: 06/17/22 10:34 Dose: 10 ml (units unknown) (unknown) (unknown) (no date) (unknown) (unknown) Admin: 06/17/22 10:35 Dose: 25 mls/hr (units unknown) (unknown) (unknown) (no date) (unknown) (unknown) Admin: 06/17/22 10:35 Dose: 300 mg (units unknown) (unknown) (unknown) (no date) (unknown) (unknown) Admin: 06/17/22 10:35 Dose: 5 mg (units unknown) (unknown) (unknown) (no date) (unknown) (unknown) Admin: 06/17/22 18:14 Dose: 25 mls/hr (units unknown) (unknown) (unknown) (no date) (unknown) (unknown) Admin: 06/17/22 20:24 Dose: 0.5 mg (units unknown) (unknown) (unknown) (no date) (unknown) (unknown) Admin: 06/17/22 21:26 Dose: 300 mg (units unknown) (unknown) (unknown) (no date) (unknown) (unknown) Admin: 06/17/22 21:27 Dose: 10 ml (units unknown) (unknown) (unknown) (no date) (unknown) (unknown) Admin: 06/17/22 21:43 Dose: 650 mg (units unknown) (unknown) (unknown) (no date) (unknown) (unknown) Admin: 06/18/22 01:23 Dose: 25 mls/hr (units unknown) (unknown) (unknown) (no date) (unknown) (unknown) Admin: 06/18/22 05:57 Dose: 20 mg (units unknown) (unknown) (unknown) (no date) (unknown) (unknown) Admin: 06/18/22 08:25 Dose: 25 mls/hr (units unknown) (unknown) (unknown) (no date) (unknown) (unknown) Admin: 06/18/22 08:25 Dose: 300 mg (units unknown) (unknown) (unknown) (no date) (unknown) (unknown) Admin: 06/18/22 08:25 Dose: 5 mg (units unknown) (unknown) (unknown) (no date) (unknown) (unknown) Admin: 06/18/22 08:26 Dose: 10 ml (units unknown) (unknown) (unknown) (no date) (unknown) (unknown) Admin: 06/18/22 09:02 Dose: 0.5 mg (units unknown) (unknown) (unknown) (no date) (unknown) (unknown) Admin: 06/18/22 13:53 Dose: 1 tab (units unknown) (unknown) (unknown) (no date) (unknown) (unknown) Admin: 06/18/22 13:53 Dose: 100 mg (units unknown) (unknown) (unknown) (no date) (unknown) (unknown) Admin: 06/18/22 17:21 Dose: 25 mls/hr (units unknown) (unknown) (unknown) (no date) (unknown) (unknown) Admin: 06/18/22 20:09 Dose: 0.5 mg (units unknown) (unknown) (unknown) (no date) (unknown) (unknown) Admin: 06/18/22 21:31 Dose: 10 ml (units unknown) (unknown) (unknown) (no date) (unknown) (unknown) Admin: 06/18/22 21:31 Dose: 300 mg (units unknown) (unknown) (unknown) (no date) (unknown) (unknown) Admin: 06/19/22 00:16 Dose: 25 mls/hr (units unknown) (unknown) (unknown) (no date) (unknown) (unknown) Admin: 06/19/22 06:13 Dose: 20 mg (units unknown) (unknown) (unknown) (no date) (unknown) (unknown) Admin: 06/19/22 08:26 Dose: 0.5 mg (units unknown) (unknown) (unknown) (no date) (unknown) (unknown) Admin: 06/19/22 09:13 Dose: 10 ml (units unknown) (unknown) (unknown) (no date) (unknown) (unknown) Admin: 06/19/22 09:13 Dose: 300 mg (units unknown) (unknown) (unknown) (no date) (unknown) (unknown) Admit Date/Time: 06/16/22 15:35 (units unknown) (unknown) (unknown) (no date) (unknown) (unknown) Admit Provider: Roxana Parker (units unknown) (unknown) (unknown) (no date) (unknown) (unknown) After history and exam CT head CT chest CBC CMP BNP troponin procalcitonin (units unknown) (unknown) (unknown) (no date) (unknown) (unknown) After the administration of intravenous contrast, 5 mm thick sections acquired (units unknown) (unknown) (unknown) (no date) (unknown) (unknown) Age/Sex: 86 / M (units unknown) (unknown) (unknown) (no date) (unknown) (unknown) Agrees with IV hydration and repeat lactic acid. Blood cultures to be done. (units unknown) (unknown) (unknown) (no date) (unknown) (unknown) Albumin (3.5-5.0) g/dL (units unknown) (unknown) (unknown) (no date) (unknown) (unknown) Albumin 3.1 L (3.5-5.0) g/dL (units unknown) (unknown) (unknown) (no date) (unknown) (unknown) Albumin/Globulin Ratio (1.0-2.8) (units unknown) (unknown) (unknown) (no date) (unknown) (unknown) Albumin/Globulin Ratio 1.1 (1.0-2.8) (units unknown) (unknown) (unknown) (no date) (unknown) (unknown) Alkaline Phosphatase (38-126) U/L (units unknown) (unknown) (unknown) (no date) (unknown) (unknown) Alkaline Phosphatase 428 H (38-126) U/L (units unknown) (unknown) (unknown) (no date) (unknown) (unknown) Allergies (units unknown) (unknown) (unknown) (no date) (unknown) (unknown) Allergy/AdvReac Type Severity Reaction Status Date / Time (units unknown) (unknown) (unknown) (no date) (unknown) (unknown) Amlodipine Besylate (Amlodipine 5 Mg Tablet) 5 mg PO DAILY DAVID (units unknown) (unknown) (unknown) (no date) (unknown) (unknown) [place] [address] (units unknown) (unknown) (unknown) (no date) (unknown) (unknown) Apixaban (Apixaban 5 Mg Tablet) 5 mg PO BID DAVID (units unknown) (unknown) (unknown) (no date) (unknown) (unknown) Approved by: Brandyn Davis M.D. on 06/16/2022 at 13:03 ? (units unknown) (unknown) (unknown) (no date) (unknown) (unknown) Approved by: Brandyn Davis M.D. on 06/16/2022 at 14:52 ? (units unknown) (unknown) (unknown) (no date) (unknown) (unknown) Approved by: Brandyn Davis M.D. on 06/16/2022 at 14:54 ? (units unknown) (unknown) (unknown) (no date) (unknown) (unknown) Asthma (units unknown) (unknown) (unknown) (no date) (unknown) (unknown) At this time uncertain source of patient's liver enzymes and acidosis. Not (units unknown) (unknown) (unknown) (no date) (unknown) (unknown) Atrial fibrillation (units unknown) (unknown) (unknown) (no date) (unknown) (unknown) BACK: No flank tenderness. (units unknown) (unknown) (unknown) (no date) (unknown) (unknown) BUN (9-20) mg/dL (units unknown) (unknown) (unknown) (no date) (unknown) (unknown) BUN 34 H (9-20) mg/dL (units unknown) (unknown) (unknown) (no date) (unknown) (unknown) BUN/Creatinine Ratio (6-22) (units unknown) (unknown) (unknown) (no date) (unknown) (unknown) BUN/Creatinine Ratio 34.3 H (6-22) (units unknown) (unknown) (unknown) (no date) (unknown) (unknown) Baso # (Auto) (0-100) /uL (units unknown) (unknown) (unknown) (no date) (unknown) (unknown) Baso # (Auto) 100 (0-100) /uL (units unknown) (unknown) (unknown) (no date) (unknown) (unknown) Baso % (Auto) (0-2) % (units unknown) (unknown) (unknown) (no date) (unknown) (unknown) Baso % (Auto) 0.8 (0-2) % (units unknown) (unknown) (unknown) (no date) (unknown) (unknown) Blood Pressure 134/61 141/67 H (units unknown) (unknown) (unknown) (no date) (unknown) (unknown) Blood Pressure 141/57 H (units unknown) (unknown) (unknown) (no date) (unknown) (unknown) Blood Pressure 142/67 H (units unknown) (unknown) (unknown) (no date) (unknown) (unknown) Blood Pressure 144/68 H 06/16/22 12:21 (units unknown) (unknown) (unknown) (no date) (unknown) (unknown) Blood Pressure 144/68 H 144/68 H (units unknown) (unknown) (unknown) (no date) (unknown) (unknown) Blood Pressure 145/69 H (units unknown) (unknown) (unknown) (no date) (unknown) (unknown) Bones and chest wall:? No suspicious bony lesions.? Overlying soft tissues (units unknown) (unknown) (unknown) (no date) (unknown) (unknown) Bones:? No acute or suspicious osseous abnormality. (units unknown) (unknown) (unknown) (no date) (unknown) (unknown) Brain: No intracranial hemorrhage. Amaro-white differentiation is grossly (units unknown) (unknown) (unknown) (no date) (unknown) (unknown) Budesonide (Budesonide 0.5 Mg/2 Ml Neb) 0.5 mg INH RTBID DAVID (units unknown) (unknown) (unknown) (no date) (unknown) (unknown) CARDIOVASCULAR: Regular rate and rhythm without murmurs (units unknown) (unknown) (unknown) (no date) (unknown) (unknown) CARDIOVASCULAR: negative chest pain, palpitations (units unknown) (unknown) (unknown) (no date) (unknown) (unknown) CC: Weakness weight loss night sweats (units unknown) (unknown) (unknown) (no date) (unknown) (unknown) CK-MB (CK-2) Rel Index TNP (units unknown) (unknown) (unknown) (no date) (unknown) (unknown) CK-MB (CK-2) Rel Index (units unknown) (unknown) (unknown) (no date) (unknown) (unknown) CK-MB (CK-2) TNP (units unknown) (unknown) (unknown) (no date) (unknown) (unknown) CK-MB (CK-2) (units unknown) (unknown) (unknown) (no date) (unknown) (unknown) COMPARISON:[facility], CR, XR CHEST 1V, 06/16/2022, 12:43. (units unknown) (unknown) (unknown) (no date) (unknown) (unknown) COMPARISON:? None. (units unknown) (unknown) (unknown) (no date) (unknown) (unknown) CSF spaces: Basal cisterns are patent. Lateral ventricles are symmetric. (units unknown) (unknown) (unknown) (no date) (unknown) (unknown) CT Scan Report (units unknown) (unknown) (unknown) (no date) (unknown) (unknown) CT scan - chest: (units unknown) (unknown) (unknown) (no date) (unknown) (unknown) CT scan - head: (units unknown) (unknown) (unknown) (no date) (unknown) (unknown) Calcium (8.4-10.2) mg/dL (units unknown) (unknown) (unknown) (no date) (unknown) (unknown) Calcium 8.1 L (8.4-10.2) mg/dL (units unknown) (unknown) (unknown) (no date) (unknown) (unknown) Carbon Dioxide (22-32) mmol/L (units unknown) (unknown) (unknown) (no date) (unknown) (unknown) Carbon Dioxide 28 (22-32) mmol/L (units unknown) (unknown) (unknown) (no date) (unknown) (unknown) Chest wall and thyroid:? Unremarkable (units unknown) (unknown) (unknown) (no date) (unknown) (unknown) Chest x-ray: (units unknown) (unknown) (unknown) (no date) (unknown) (unknown) Chief complaint: Weakness (units unknown) (unknown) (unknown) (no date) (unknown) (unknown) Chloride (98-107) mmol/L (units unknown) (unknown) (unknown) (no date) (unknown) (unknown) Chloride 99 (98-107) mmol/L (units unknown) (unknown) (unknown) (no date) (unknown) (unknown) Chronic anticoagulation (units unknown) (unknown) (unknown) (no date) (unknown) (unknown) Clinical Impression: (units unknown) (unknown) (unknown) (no date) (unknown) (unknown) Complicating co-morbidities: History of melanoma (units unknown) (unknown) (unknown) (no date) (unknown) (unknown) Confusion (units unknown) (unknown) (unknown) (no date) (unknown) (unknown) Consultations: 3:36 p.m.. Spoke with hospitalist, Dr. Parker, agrees patient (units unknown) (unknown) (unknown) (no date) (unknown) (unknown) Course (units unknown) (unknown) (unknown) (no date) (unknown) (unknown) Craniofacial structures: No displaced fracture. Sinuses are clear. 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 on 06/16/2022 at 13:02 ? ? (units unknown) (unknown) (unknown) (no date) (unknown) (unknown) Dictated by: Brandyn Davis M.D. on 06/16/2022 at 14:48 ? ? (units unknown) (unknown) (unknown) (no date) (unknown) (unknown) Dictated by: Brandyn Davis M.D. on 06/16/2022 at 14:52 ? ? (units unknown) (unknown) (unknown) (no date) (unknown) (unknown) Differential considered: Includes but not limited to neoplastic process, (units unknown) (unknown) (unknown) (no date) (unknown) (unknown) Discharge Plan (units unknown) (unknown) (unknown) (no date) (unknown) (unknown) Discontinued Medications (units unknown) (unknown) (unknown) (no date) (unknown) (unknown) Discussion: Appropriate for admission. Patient would benefit observation for (units unknown) (unknown) (unknown) (no date) (unknown) (unknown) Documented By: AGW (units unknown) (unknown) (unknown) (no date) (unknown) (unknown) Documented By: AM (units unknown) (unknown) (unknown) (no date) (unknown) (unknown) Documented By: AWF (units unknown) (unknown) (unknown) (no date) (unknown) (unknown) Documented By: EJ (units unknown) (unknown) (unknown) (no date) (unknown) (unknown) Documented By: JG (units unknown) (unknown) (unknown) (no date) (unknown) (unknown) Documented By: ARNEIF (units unknown) (unknown) (unknown) (no date) (unknown) (unknown) Documented By: MP (units unknown) (unknown) (unknown) (no date) (unknown) (unknown) Documented By: RLS (units unknown) (unknown) (unknown) (no date) (unknown) (unknown) Documented By: TLS (units unknown) (unknown) (unknown) (no date) (unknown) (unknown) Documented By: WJ (units unknown) (unknown) (unknown) (no date) (unknown) (unknown) Documented By: ZC (units unknown) (unknown) (unknown) (no date) (unknown) (unknown) ENT: Slightly dry lips and mucous membranes (units unknown) (unknown) (unknown) (no date) (unknown) (unknown) ER Physician: Matt Swartz MD (units unknown) (unknown) (unknown) (no date) (unknown) (unknown) EXTREMITIES: No gross deformities. (units unknown) (unknown) (unknown) (no date) (unknown) (unknown) EYES: Pupils equal round (units unknown) (unknown) (unknown) (no date) (unknown) (unknown) Emergency Report (units unknown) (unknown) (unknown) (no date) (unknown) (unknown) Enoxaparin Sodium (Enoxaparin 30 Mg/0.3 Ml Syringe) 30 mg SUBCUT DAILY DAVID (units unknown) (unknown) (unknown) (no date) (unknown) (unknown) Enoxaparin Sodium (Enoxaparin 40 Mg/0.4 Ml Syringe) 40 mg SUBCUT DAILY DAVID (units unknown) (unknown) (unknown) (no date) (unknown) (unknown) Eos # (Auto) (0-450) /uL (units unknown) (unknown) (unknown) (no date) (unknown) (unknown) Eos # (Auto) 0 (0-450) /uL (units unknown) (unknown) (unknown) (no date) (unknown) (unknown) Eos % (Auto) (2-4) % (units unknown) (unknown) (unknown) (no date) (unknown) (unknown) Eos % (Auto) 0.1 L (2-4) % (units unknown) (unknown) (unknown) (no date) (unknown) (unknown) Essential hypertension (units unknown) (unknown) (unknown) (no date) (unknown) (unknown) Estimated GFR > 60 (>60) mL/min (units unknown) (unknown) (unknown) (no date) (unknown) (unknown) Estimated GFR (>60) mL/min (units unknown) (unknown) (unknown) (no date) (unknown) (unknown) Exam Narrative: (units unknown) (unknown) (unknown) (no date) (unknown) (unknown) Exam documented above, pertinent findings include: Cachectic-appearing dry (units unknown) (unknown) (unknown) (no date) (unknown) (unknown) Exam (units unknown) (unknown) (unknown) (no date) (unknown) (unknown) FINDINGS:? (units unknown) (unknown) (unknown) (no date) (unknown) (unknown) Family History (units unknown) (unknown) (unknown) (no date) (unknown) (unknown) Father Diabetes mellitus (units unknown) (unknown) (unknown) (no date) (unknown) (unknown) GASTROINTESTINAL: Abdomen soft, non-tender (units unknown) (unknown) (unknown) (no date) (unknown) (unknown) GASTROINTESTINAL: negative nausea, vomiting, abdominal pain (units unknown) (unknown) (unknown) (no date) (unknown) (unknown) GENERAL: in no distress, not toxic not dyspneic, is cachectic appearing (units unknown) (unknown) (unknown) (no date) (unknown) (unknown) GENERAL: negative chills, positive fatigue, malaise, dizzy negative fever, (units unknown) (unknown) (unknown) (no date) (unknown) (unknown) : negative dysuria, frequency, hematuria (units unknown) (unknown) (unknown) (no date) (unknown) (unknown) Gabapentin (Gabapentin 300 Mg Capsule) 300 mg PO BID DAVID (units unknown) (unknown) (unknown) (no date) (unknown) (unknown) General (units unknown) (unknown) (unknown) (no date) (unknown) (unknown) Globulin (1.7-4.1) g/dL (units unknown) (unknown) (unknown) (no date) (unknown) (unknown) Globulin 2.7 (1.7-4.1) g/dL (units unknown) (unknown) (unknown) (no date) (unknown) (unknown) Glucose (80-110) mg/dL (units unknown) (unknown) (unknown) (no date) (unknown) (unknown) Glucose 146 H (80-110) mg/dL (units unknown) (unknown) (unknown) (no date) (unknown) (unknown) HEAD: Normocephalic. (units unknown) (unknown) (unknown) (no date) (unknown) (unknown) HEENT: negative sinus pain, ear pain, sore throat (units unknown) (unknown) (unknown) (no date) (unknown) (unknown) HPI - Weakness (units unknown) (unknown) (unknown) (no date) (unknown) (unknown) HPI Narrative: (units unknown) (unknown) (unknown) (no date) (unknown) (unknown) Hct (41-53) % (units unknown) (unknown) (unknown) (no date) (unknown) (unknown) Hct 46.6 (41-53) % (units unknown) (unknown) (unknown) (no date) (unknown) (unknown) Hgb (13.5-17.5) g/dL (units unknown) (unknown) (unknown) (no date) (unknown) (unknown) Hgb 15.4 (13.5-17.5) g/dL (units unknown) (unknown) (unknown) (no date) (unknown) (unknown) History of Present Illness (units unknown) (unknown) (unknown) (no date) (unknown) (unknown) History of melanoma (units unknown) (unknown) (unknown) (no date) (unknown) (unknown) History of permanent cardiac pacemaker placement (units unknown) (unknown) (unknown) (no date) (unknown) (unknown) Home Medications (units unknown) (unknown) (unknown) (no date) (unknown) (unknown) IMPRESSION:? Bibasilar infectious or inflammatory pulmonary opacities.? (units unknown) (unknown) (unknown) (no date) (unknown) (unknown) IMPRESSION:? No acute intracranial abnormality.? If there is concern for (units unknown) (unknown) (unknown) (no date) (unknown) (unknown) IMPRESSION:? Possible mild right and retrocardiac opacities could represent (units unknown) (unknown) (unknown) (no date) (unknown) (unknown) INDICATIONS:? altered mental status (units unknown) (unknown) (unknown) (no date) (unknown) (unknown) INDICATIONS:? chest pain (units unknown) (unknown) (unknown) (no date) (unknown) (unknown) INDICATIONS:? suspected sepsis (units unknown) (unknown) (unknown) (no date) (unknown) (unknown) INR (0.9-1.3) (units unknown) (unknown) (unknown) (no date) (unknown) (unknown) INR 1.5 H (0.9-1.3) (units unknown) (unknown) (unknown) (no date) (unknown) (unknown) IV NOW ONE (units unknown) (unknown) (unknown) (no date) (unknown) (unknown) IV Q8H DAVID (units unknown) (unknown) (unknown) (no date) (unknown) (unknown) Image quality:? Good (units unknown) (unknown) (unknown) (no date) (unknown) (unknown) Imaging Data (units unknown) (unknown) (unknown) (no date) (unknown) (unknown) Imaging studies independently reviewed: Chest x-ray no acute process, CT head (units unknown) (unknown) (unknown) (no date) (unknown) (unknown) Independently reviewed EKG as above atrial sensed ventricular paced rhythm rate (units unknown) (unknown) (unknown) (no date) (unknown) (unknown) Influenza A (RT-PCR) (NEGATIVE) (units unknown) (unknown) (unknown) (no date) (unknown) (unknown) Influenza A (RT-PCR) Flu a negative (NEGATIVE) (units unknown) (unknown) (unknown) (no date) (unknown) (unknown) Influenza B (RT-PCR) (NEGATIVE) (units unknown) (unknown) (unknown) (no date) (unknown) (unknown) Influenza B (RT-PCR) Flu b negative (NEGATIVE) (units unknown) (unknown) (unknown) (no date) (unknown) (unknown) Infusion: 06/17/22 05:15 Dose: 0 mls/hr (units unknown) (unknown) (unknown) (no date) (unknown) (unknown) Infusion: 06/17/22 13:33 Dose: 84 mls/hr (units unknown) (unknown) (unknown) (no date) (unknown) (unknown) Infusion: 06/17/22 14:35 Dose: 25 mls/hr (units unknown) (unknown) (unknown) (no date) (unknown) (unknown) Infusion: 06/17/22 22:14 Dose: 25 mls/hr (units unknown) (unknown) (unknown) (no date) (unknown) (unknown) Infusion: 06/18/22 05:23 Dose: 25 mls/hr (units unknown) (unknown) (unknown) (no date) (unknown) (unknown) Infusion: 06/18/22 12:43 Dose: 0 mls/hr (units unknown) (unknown) (unknown) (no date) (unknown) (unknown) Infusion: 06/18/22 21:21 Dose: 25 mls/hr (units unknown) (unknown) (unknown) (no date) (unknown) (unknown) Initial Vital Signs (units unknown) (unknown) (unknown) (no date) (unknown) (unknown) Initial Vital Signs: (units unknown) (unknown) (unknown) (no date) (unknown) (unknown) [address] [address] (units unknown) (unknown) (unknown) (no date) (unknown) (unknown) [facility] (units unknown) (unknown) (unknown) (no date) (unknown) (unknown) Lab Data (units unknown) (unknown) (unknown) (no date) (unknown) (unknown) Lab Results (units unknown) (unknown) (unknown) (no date) (unknown) (unknown) Lab Test results independently reviewed as above. Pertinent findings: WBC 9.6 (units unknown) (unknown) (unknown) (no date) (unknown) (unknown) Labs: (units unknown) (unknown) (unknown) (no date) (unknown) (unknown) Lactate (0.7-2.1) mmol/L (units unknown) (unknown) (unknown) (no date) (unknown) (unknown) Lactate 2.7 H (0.7-2.1) mmol/L (units unknown) (unknown) (unknown) (no date) (unknown) (unknown) Lactate 4.3 H* (0.7-2.1) mmol/L (units unknown) (unknown) (unknown) (no date) (unknown) (unknown) Last Admin: 06/16/22 22:54 Dose: 100 mls/hr (units unknown) (unknown) (unknown) (no date) (unknown) (unknown) Last Admin: 06/16/22 23:23 Dose: Not Given (units unknown) (unknown) (unknown) (no date) (unknown) (unknown) Last Admin: 06/17/22 13:33 Dose: 84 mls/hr (units unknown) (unknown) (unknown) (no date) (unknown) (unknown) Last Admin: 06/19/22 09:13 Dose: 1 tab (units unknown) (unknown) (unknown) (no date) (unknown) (unknown) Last Admin: 06/19/22 09:13 Dose: 100 mg (units unknown) (unknown) (unknown) (no date) (unknown) (unknown) Last Admin: 06/19/22 09:13 Dose: 5 mg (units unknown) (unknown) (unknown) (no date) (unknown) (unknown) Last Admin: 06/19/22 09:17 Dose: Not Given (units unknown) (unknown) (unknown) (no date) (unknown) (unknown) Last Admin: 06/19/22 10:46 Dose: 650 mg (units unknown) (unknown) (unknown) (no date) (unknown) (unknown) Last Admin: 06/19/22 19:27 Dose: 0.5 mg (units unknown) (unknown) (unknown) (no date) (unknown) (unknown) Last Admin: 06/19/22 23:28 Dose: 10 ml (units unknown) (unknown) (unknown) (no date) (unknown) (unknown) Last Admin: 06/19/22 23:28 Dose: 300 mg (units unknown) (unknown) (unknown) (no date) (unknown) (unknown) Last Admin: 06/20/22 05:38 Dose: 20 mg (units unknown) (unknown) (unknown) (no date) (unknown) (unknown) Last Infusion: 06/16/22 14:09 Dose: 0 mls/hr (units unknown) (unknown) (unknown) (no date) (unknown) (unknown) Last Infusion: 06/16/22 22:39 Dose: 0 mls/hr (units unknown) (unknown) (unknown) (no date) (unknown) (unknown) Last Infusion: 06/16/22 22:51 Dose: 0 mls/hr (units unknown) (unknown) (unknown) (no date) (unknown) (unknown) Lipase (23-300) U/L (units unknown) (unknown) (unknown) (no date) (unknown) (unknown) Lipase 45 (23-300) U/L (units unknown) (unknown) (unknown) (no date) (unknown) (unknown) Loc: ED (units unknown) (unknown) (unknown) (no date) (unknown) (unknown) Lungs and pleura:? Bilateral [id number] pleural effusions, slightly (units unknown) (unknown) (unknown) (no date) (unknown) (unknown) Lungs and pleura:? Low lung volumes.? Possible mild right and retrocardiac basal (units unknown) (unknown) (unknown) (no date) (unknown) (unknown) Lymph # (Auto) (5781-7595) /uL (units unknown) (unknown) (unknown) (no date) (unknown) (unknown) Lymph # (Auto) 400 L (2690-0090) /uL (units unknown) (unknown) (unknown) (no date) (unknown) (unknown) Lymph % (Auto) (25-40) % (units unknown) (unknown) (unknown) (no date) (unknown) (unknown) Lymph % (Auto) 4.6 L (25-40) % (units unknown) (unknown) (unknown) (no date) (unknown) (unknown) MCH (26-34) PG (units unknown) (unknown) (unknown) (no date) (unknown) (unknown) MCH 30.4 (26-34) PG (units unknown) (unknown) (unknown) (no date) (unknown) (unknown) MCHC (30-36) % (units unknown) (unknown) (unknown) (no date) (unknown) (unknown) MCHC 33.0 (30-36) % (units unknown) (unknown) (unknown) (no date) (unknown) (unknown) MCV (80-100) fL (units unknown) (unknown) (unknown) (no date) (unknown) (unknown) MCV 92.4 (80-100) fL (units unknown) (unknown) (unknown) (no date) (unknown) (unknown) MDM - Weakness (units unknown) (unknown) (unknown) (no date) (unknown) (unknown) MDM Narrative (units unknown) (unknown) (unknown) (no date) (unknown) (unknown) MDM (units unknown) (unknown) (unknown) (no date) (unknown) (unknown) MR#: [id number] (units unknown) (unknown) (unknown) (no date) (unknown) (unknown) MUSCULOSKELETAL: negative muscle or bony pain (units unknown) (unknown) (unknown) (no date) (unknown) (unknown) Magnesium (1.6-2.3) mg/dL (units unknown) (unknown) (unknown) (no date) (unknown) (unknown) Magnesium 2.6 H (1.6-2.3) mg/dL (units unknown) (unknown) (unknown) (no date) (unknown) (unknown) Mediastinum, heart, and esophagus:? No hiatal hernia.? Left chest wall pulse (units unknown) (unknown) (unknown) (no date) (unknown) (unknown) Mediastinum:? Mediastinal contours appear normal.? Heart size is normal.? (units unknown) (unknown) (unknown) (no date) (unknown) (unknown) Medical History (Updated 06/17/22 @ 00:55 by JOSE Crystal) (units unknown) (unknown) (unknown) (no date) (unknown) (unknown) Medical decision making narrative: (units unknown) (unknown) (unknown) (no date) (unknown) (unknown) Medical records reviewed: ER visits from a few days ago (units unknown) (unknown) (unknown) (no date) (unknown) (unknown) Medication Instructions Recorded Confirmed (units unknown) (unknown) (unknown) (no date) (unknown) (unknown) Fmug-bl-ywyxacld, (units unknown) (unknown) (unknown) (no date) (unknown) (unknown) Mode of arrival: Wheelchair (units unknown) (unknown) (unknown) (no date) (unknown) (unknown) [place] # (Auto) (0-900) /uL (units unknown) (unknown) (unknown) (no date) (unknown) (unknown) [place] # (Auto) 900 (0-900) /uL (units unknown) (unknown) (unknown) (no date) (unknown) (unknown) [place] % (Auto) (3-14) % (units unknown) (unknown) (unknown) (no date) (unknown) (unknown) [place]oval % (Auto) 9.4 (3-14) % (units unknown) (unknown) (unknown) (no date) (unknown) (unknown) Mother No problems noted. (units unknown) (unknown) (unknown) (no date) (unknown) (unknown) Multivitamins (Multivitamin 1 Tablet) 1 tab PO DAILY DAVID (units unknown) (unknown) (unknown) (no date) (unknown) (unknown) NECK: Trachea midline. (units unknown) (unknown) (unknown) (no date) (unknown) (unknown) NEURO: AOx4. Clear speech no facial droop light touch intact to bilateral face (units unknown) (unknown) (unknown) (no date) (unknown) (unknown) NEUROLOGIC: negative weakness, numbness (units unknown) (unknown) (unknown) (no date) (unknown) (unknown) NT-Pro-B Natriuret Pep (<450) pg/mL (units unknown) (unknown) (unknown) (no date) (unknown) (unknown) NT-Pro-B Natriuret Pep 1430 H (<450) pg/mL (units unknown) (unknown) (unknown) (no date) (unknown) (unknown) Naloxone HCl (Naloxone 0.4 Mg/Ml Vial) 0.2 mg IV Q2MIN PRN (units unknown) (unknown) (unknown) (no date) (unknown) (unknown) Narrative (units unknown) (unknown) (unknown) (no date) (unknown) (unknown) Narrative: (units unknown) (unknown) (unknown) (no date) (unknown) (unknown) Neut # (Auto) (1409-0835) /uL (units unknown) (unknown) (unknown) (no date) (unknown) (unknown) Neut # (Auto) 8200 H (6717-9725) /uL (units unknown) (unknown) (unknown) (no date) (unknown) (unknown) Neut % (Auto) (50-75) % (units unknown) (unknown) (unknown) (no date) (unknown) (unknown) Neut % (Auto) 85.1 H (50-75) % (units unknown) (unknown) (unknown) (no date) (unknown) (unknown) Noncontrast 4.5 mm thick angled axial sections acquired from the foramen magnum (units unknown) (unknown) (unknown) (no date) (unknown) (unknown) Ondansetron HCl (Ondansetron 4 Mg Odt) 4 mg PO Q8HR PRN (units unknown) (unknown) (unknown) (no date) (unknown) (unknown) Ondansetron HCl (Ondansetron 4 Mg/2 Ml Inj) 4 mg IV NOW PRN (units unknown) (unknown) (unknown) (no date) (unknown) (unknown) Ondansetron HCl (Ondansetron 4 Mg/2 Ml Inj) 4 mg IV Q4HR PRN (units unknown) (unknown) (unknown) (no date) (unknown) (unknown) Ordered: (units unknown) (unknown) (unknown) (no date) (unknown) (unknown) Ordering Provider: Matt Swartz MD (units unknown) (unknown) (unknown) (no date) (unknown) (unknown) Orders (units unknown) (unknown) (unknown) (no date) (unknown) (unknown) Other findings as above.? Of note, the liver and spleen are significantly (units unknown) (unknown) (unknown) (no date) (unknown) (unknown) Oxygen Delivery Method 06/16/22 12:21 (units unknown) (unknown) (unknown) (no date) (unknown) (unknown) Oxygen Delivery Method Room Air (units unknown) (unknown) (unknown) (no date) (unknown) (unknown) Oxygen Delivery Method (units unknown) (unknown) (unknown) (no date) (unknown) (unknown) PRN Reason: Fever/Mild Pain (1-3) (units unknown) (unknown) (unknown) (no date) (unknown) (unknown) PRN Reason: Flush (units unknown) (unknown) (unknown) (no date) (unknown) (unknown) PRN Reason: Nausea And Vomiting (units unknown) (unknown) (unknown) (no date) (unknown) (unknown) PRN Reason: Opiate Reversal (units unknown) (unknown) (unknown) (no date) (unknown) (unknown) PROCEDURE:? CT CHEST W CON (units unknown) (unknown) (unknown) (no date) (unknown) (unknown) PROCEDURE:? CT HEAD/BRAIN WO CON (units unknown) (unknown) (unknown) (no date) (unknown) (unknown) PROCEDURE:? XR CHEST 1V (units unknown) (unknown) (unknown) (no date) (unknown) (unknown) PSYCH: Not anxious, is cooperative (units unknown) (unknown) (unknown) (no date) (unknown) (unknown) PT (10.1-12.7) SECONDS (units unknown) (unknown) (unknown) (no date) (unknown) (unknown) PT 17.6 H (10.1-12.7) SECONDS (units unknown) (unknown) (unknown) (no date) (unknown) (unknown) Pacemaker (units unknown) (unknown) (unknown) (no date) (unknown) (unknown) Pantoprazole Sodium (Pantoprazole Dr 20 Mg Tablet) 20 mg PO 0600 DAVID (units unknown) (unknown) (unknown) (no date) (unknown) (unknown) Patient Disposition: Admitted as Observation (units unknown) (unknown) (unknown) (no date) (unknown) (unknown) Patient History (units unknown) (unknown) (unknown) (no date) (unknown) (unknown) Patient brought in by from Cardiology office for routine office visit. I (units unknown) (unknown) (unknown) (no date) (unknown) (unknown) Patient: Yoseph Cardoso MR#: [id number] (units unknown) (unknown) (unknown) (no date) (unknown) (unknown) Patient: Yoseph Cardoso (units unknown) (unknown) (unknown) (no date) (unknown) (unknown) Phosphorus (2.3-3.7) mg/dL (units unknown) (unknown) (unknown) (no date) (unknown) (unknown) Phosphorus 4.1 H (2.3-3.7) mg/dL (units unknown) (unknown) (unknown) (no date) (unknown) (unknown) Piperacillin Sod/Tazobactam (Sod 3.375 gm/ Sodium Chloride) 100 mls @ 25 mls/hr (units unknown) (unknown) (unknown) (no date) (unknown) (unknown) Piperacillin Sod/Tazobactam (Sod 4.5 gm/ Sodium Chloride) 100 mls @ 200 mls/hr (units unknown) (unknown) (unknown) (no date) (unknown) (unknown) Plt Count (150-400) X103/uL (units unknown) (unknown) (unknown) (no date) (unknown) (unknown) Plt Count 222 (150-400) X103/uL (units unknown) (unknown) (unknown) (no date) (unknown) (unknown) Potassium (3.4-5.1) mmol/L (units unknown) (unknown) (unknown) (no date) (unknown) (unknown) Potassium 4.8 (3.4-5.1) mmol/L (units unknown) (unknown) (unknown) (no date) (unknown) (unknown) Procalcitonin (<0.5) ng/mL (units unknown) (unknown) (unknown) (no date) (unknown) (unknown) Procalcitonin 3.27 H (<0.5) ng/mL (units unknown) (unknown) (unknown) (no date) (unknown) (unknown) Procedure: CT chest w con (units unknown) (unknown) (unknown) (no date) (unknown) (unknown) Procedure: CT head/brain wo con (units unknown) (unknown) (unknown) (no date) (unknown) (unknown) Procedure: XR chest 1V (units unknown) (unknown) (unknown) (no date) (unknown) (unknown) Pulse Oximetry 100 96 (units unknown) (unknown) (unknown) (no date) (unknown) (unknown) Pulse Oximetry 91 93 (units unknown) (unknown) (unknown) (no date) (unknown) (unknown) Pulse Oximetry 96 96 (units unknown) (unknown) (unknown) (no date) (unknown) (unknown) Pulse Oximetry 98 06/16/22 12:21 (units unknown) (unknown) (unknown) (no date) (unknown) (unknown) Pulse Oximetry 98 93 (units unknown) (unknown) (unknown) (no date) (unknown) (unknown) Pulse Oximetry 98 (units unknown) (unknown) (unknown) (no date) (unknown) (unknown) Pulse Rate 70 72 (units unknown) (unknown) (unknown) (no date) (unknown) (unknown) Pulse Rate 71 73 (units unknown) (unknown) (unknown) (no date) (unknown) (unknown) Pulse Rate 73 75 (units unknown) (unknown) (unknown) (no date) (unknown) (unknown) Pulse Rate 76 (units unknown) (unknown) (unknown) (no date) (unknown) (unknown) Pulse Rate 78 06/16/22 12:21 (units unknown) (unknown) (unknown) (no date) (unknown) (unknown) Pulse Rate 78 79 (units unknown) (unknown) (unknown) (no date) (unknown) (unknown) RBC (4.5-5.9) X106/uL (units unknown) (unknown) (unknown) (no date) (unknown) (unknown) RBC 5.05 (4.5-5.9) X106/uL (units unknown) (unknown) (unknown) (no date) (unknown) (unknown) RDW (11.6-14.8) % (units unknown) (unknown) (unknown) (no date) (unknown) (unknown) RDW 14.4 (11.6-14.8) % (units unknown) (unknown) (unknown) (no date) (unknown) (unknown) RESPIRATORY: Clear to auscultation. Breath sounds equal bilaterally. No wheezes, (units unknown) (unknown) (unknown) (no date) (unknown) (unknown) RESPIRATORY: negative dyspnea, cough (units unknown) (unknown) (unknown) (no date) (unknown) (unknown) ROS Unobtainable: All systems reviewed + are unremarkable except as noted in HPI (units unknown) (unknown) (unknown) (no date) (unknown) (unknown) RSV (PCR) (Negative) (units unknown) (unknown) (unknown) (no date) (unknown) (unknown) RSV (PCR) Negative (Negative) (units unknown) (unknown) (unknown) (no date) (unknown) (unknown) Radiologist Impression: (units unknown) (unknown) (unknown) (no date) (unknown) (unknown) Re-evaluations: Reviewed with patient and . They do agree for admission. (units unknown) (unknown) (unknown) (no date) (unknown) (unknown) Related Data (units unknown) (unknown) (unknown) (no date) (unknown) (unknown) Respiratory Rate 17 16 (units unknown) (unknown) (unknown) (no date) (unknown) (unknown) Respiratory Rate 20 13 (units unknown) (unknown) (unknown) (no date) (unknown) (unknown) Respiratory Rate 22 06/16/22 12:21 (units unknown) (unknown) (unknown) (no date) (unknown) (unknown) Respiratory Rate 22 14 (units unknown) (unknown) (unknown) (no date) (unknown) (unknown) Respiratory Rate 22 (units unknown) (unknown) (unknown) (no date) (unknown) (unknown) Review of Systems (units unknown) (unknown) (unknown) (no date) (unknown) (unknown) SARS-CoV-2 (PCR) (Negative) (units unknown) (unknown) (unknown) (no date) (unknown) (unknown) SARS-CoV-2 (PCR) Negative (Negative) (units unknown) (unknown) (unknown) (no date) (unknown) (unknown) DAVID (units unknown) (unknown) (unknown) (no date) (unknown) (unknown) SKIN: Warm and dry (units unknown) (unknown) (unknown) (no date) (unknown) (unknown) SKIN: negative rash, skin lesions (units unknown) (unknown) (unknown) (no date) (unknown) (unknown) Signed By: (units unknown) (unknown) (unknown) (no date) (unknown) (unknown) Signed (units unknown) (unknown) (unknown) (no date) (unknown) (unknown) Smoking Status: Never smoker (units unknown) (unknown) (unknown) (no date) (unknown) (unknown) Smoking Status: Smoker, status unknown (units unknown) (unknown) (unknown) (no date) (unknown) (unknown) Social History (units unknown) (unknown) (unknown) (no date) (unknown) (unknown) Sodium (137-145) mmol/L (units unknown) (unknown) (unknown) (no date) (unknown) (unknown) Sodium 135 L (137-145) mmol/L (units unknown) (unknown) (unknown) (no date) (unknown) (unknown) Sodium Chloride (Normal Saline 0.9%) 1,000 mls @ 1,000 mls/hr IV BOLUS ONE (units unknown) (unknown) (unknown) (no date) (unknown) (unknown) Sodium Chloride (Normal Saline 0.9%) 1,000 mls @ 100 mls/hr IV CONT DAVID (units unknown) (unknown) (unknown) (no date) (unknown) (unknown) Sodium Chloride (Normal Saline 0.9%) 250 mls @ 21 mls/hr IV Q24H PRN (units unknown) (unknown) (unknown) (no date) (unknown) (unknown) Sodium Chloride (Sodium Chloride 0.9% Flush) 10 ml IV BID DAVID (units unknown) (unknown) (unknown) (no date) (unknown) (unknown) Sodium Chloride (Sodium Chloride 0.9% Flush) 10 ml IV PRN PRN (units unknown) (unknown) (unknown) (no date) (unknown) (unknown) Source: patient and family (units unknown) (unknown) (unknown) (no date) (unknown) (unknown) Stated complaint: Pain near pacemaker (units unknown) (unknown) (unknown) (no date) (unknown) (unknown) Stop: 06/16/22 13:43 (units unknown) (unknown) (unknown) (no date) (unknown) (unknown) Stop: 06/16/22 20:50 (units unknown) (unknown) (unknown) (no date) (unknown) (unknown) Stop: 06/16/22 21:48 (units unknown) (unknown) (unknown) (no date) (unknown) (unknown) Stop: 06/17/22 07:04 (units unknown) (unknown) (unknown) (no date) (unknown) (unknown) Substance Use Type: does not use (units unknown) (unknown) (unknown) (no date) (unknown) (unknown) Surgical History (Updated 06/16/22 @ 21:27 by CASEY Crystal) (units unknown) (unknown) (unknown) (no date) (unknown) (unknown) Surgical changes and devices:? Left chest wall pulse generator with dual-chamber (units unknown) (unknown) (unknown) (no date) (unknown) (unknown) TECHNIQUE:? One view of the chest was acquired.? (units unknown) (unknown) (unknown) (no date) (unknown) (unknown) TECHNIQUE:? (units unknown) (unknown) (unknown) (no date) (unknown) (unknown) There is also heterogeneous appearance of the spleen. (units unknown) (unknown) (unknown) (no date) (unknown) (unknown) Thiamine HCl (Thiamine 100 Mg Tablet) 100 mg PO DAILY DAVID (units unknown) (unknown) (unknown) (no date) (unknown) (unknown) Time Seen by Provider: 06/16/22 12:46 (units unknown) (unknown) (unknown) (no date) (unknown) (unknown) Total Bilirubin (0.2-1.3) mg/dL (units unknown) (unknown) (unknown) (no date) (unknown) (unknown) Total Bilirubin 2.1 H (0.2-1.3) mg/dL (units unknown) (unknown) (unknown) (no date) (unknown) (unknown) Total Creatine Kinase (55-170) U/L (units unknown) (unknown) (unknown) (no date) (unknown) (unknown) Total Creatine Kinase 53 L (55-170) U/L (units unknown) (unknown) (unknown) (no date) (unknown) (unknown) Total Protein (6.3-8.2) g/dL (units unknown) (unknown) (unknown) (no date) (unknown) (unknown) Total Protein 5.8 L (6.3-8.2) g/dL (units unknown) (unknown) (unknown) (no date) (unknown) (unknown) Treatments: IV fluid (units unknown) (unknown) (unknown) (no date) (unknown) (unknown) Troponin I < 0.012 (0.01-0.034) ng/mL (units unknown) (unknown) (unknown) (no date) (unknown) (unknown) Troponin I (0.01-0.034) ng/mL (units unknown) (unknown) (unknown) (no date) (unknown) (unknown) Upper abdomen:? Heterogeneous appearance of the liver, not well evaluated on (units unknown) (unknown) (unknown) (no date) (unknown) (unknown) Vital Signs - 8 hr (units unknown) (unknown) (unknown) (no date) (unknown) (unknown) Vital Signs (units unknown) (unknown) (unknown) (no date) (unknown) (unknown) Vital signs: (units unknown) (unknown) (unknown) (no date) (unknown) (unknown) Volume:? Vascular calcifications. Periventricular white matter disease is (units unknown) (unknown) (unknown) (no date) (unknown) (unknown) WBC (4.5-11.0) X103/uL (units unknown) (unknown) (unknown) (no date) (unknown) (unknown) WBC 9.6 (4.5-11.0) X103/uL (units unknown) (unknown) (unknown) (no date) (unknown) (unknown) [facility] ER for evaluation of dark urine. CT abdomen pelvis were done, (units unknown) (unknown) (unknown) (no date) (unknown) (unknown) XRay Report (units unknown) (unknown) (unknown) (no date) (unknown) (unknown) [Embedded Image Not Available] (units unknown) (unknown) (unknown) (no date) (unknown) (unknown) [From Prevnar] and feet x (units unknown) (unknown) (unknown) (no date) (unknown) (unknown) after. (units unknown) (unknown) (unknown) (no date) (unknown) (unknown) agrees for admission. (units unknown) (unknown) (unknown) (no date) (unknown) (unknown) alcohol intake frequency: a few times a month (units unknown) (unknown) (unknown) (no date) (unknown) (unknown) alcohol intake: current (units unknown) (unknown) (unknown) (no date) (unknown) (unknown) amlodipine 5 mg tablet 5 mg PO DAILY 06/16/22 06/16/22 (units unknown) (unknown) (unknown) (no date) (unknown) (unknown) and below (units unknown) (unknown) (unknown) (no date) (unknown) (unknown) and/or (units unknown) (unknown) (unknown) (no date) (unknown) (unknown) apixaban 5 mg tablet (Eliquis) 5 mg PO BID blood thinner 06/16/22 06/16/22 (units unknown) (unknown) (unknown) (no date) (unknown) (unknown) appear (units unknown) (unknown) (unknown) (no date) (unknown) (unknown) appearing (units unknown) (unknown) (unknown) (no date) (unknown) (unknown) assess for resolution. (units unknown) (unknown) (unknown) (no date) (unknown) (unknown) atelectasis (units unknown) (unknown) (unknown) (no date) (unknown) (unknown) commonly seen (units unknown) (unknown) (unknown) (no date) (unknown) (unknown) conjugate to of hands (units unknown) (unknown) (unknown) (no date) (unknown) (unknown) consider nonemergent MRI if necessary.? (units unknown) (unknown) (unknown) (no date) (unknown) (unknown) coronal and sagittal reformats and 7 mm axial MIP were acquired.? For radiation (units unknown) (unknown) (unknown) (no date) (unknown) (unknown) criteria. (units unknown) (unknown) (unknown) (no date) (unknown) (unknown) denies any chest pain back pain abdominal pain or headache. (units unknown) (unknown) (unknown) (no date) (unknown) (unknown) dose (units unknown) (unknown) (unknown) (no date) (unknown) (unknown) electrode leads in place. (units unknown) (unknown) (unknown) (no date) (unknown) (unknown) facial droop. Fast exam is negative. Cardiology does not feel this is cardiac (units unknown) (unknown) (unknown) (no date) (unknown) (unknown) facial droop. Fast exam is negative. Patient denies any chest pain abdominal (units unknown) (unknown) (unknown) (no date) (unknown) (unknown) failure thrive/dementia/Par kinson's (units unknown) (unknown) (unknown) (no date) (unknown) (unknown) fluticasone propionate 44 44 mcg inhalation DAILY 06/16/22 06/16/22 (units unknown) (unknown) (unknown) (no date) (unknown) (unknown) following (units unknown) (unknown) (unknown) (no date) (unknown) (unknown) from the (units unknown) (unknown) (unknown) (no date) (unknown) (unknown) further evaluation for abnormal laboratory studies. Patient could be early (units unknown) (unknown) (unknown) (no date) (unknown) (unknown) gabapentin 300 mg capsule 300 mg PO BID 06/16/22 06/16/22 (units unknown) (unknown) (unknown) (no date) (unknown) (unknown) generator (units unknown) (unknown) (unknown) (no date) (unknown) (unknown) greater on the (units unknown) (unknown) (unknown) (no date) (unknown) (unknown) hands with strong equal home care nurse 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 (units unknown) (unknown) (unknown) (no date) (unknown) (unknown) health/weight loss cachexia and balance issues. He had concern for neoplastic (units unknown) (unknown) (unknown) (no date) (unknown) (unknown) hemoglobin 15.4 hematocrit 46.6 platelets 222 PT 17.6 INR 1.5 PTT 38 sodium 135 (units unknown) (unknown) (unknown) (no date) (unknown) (unknown) heterogeneous (units unknown) (unknown) (unknown) (no date) (unknown) (unknown) history, and (units unknown) (unknown) (unknown) (no date) (unknown) (unknown) household members: spouse (units unknown) (unknown) (unknown) (no date) (unknown) (unknown) intact. (units unknown) (unknown) (unknown) (no date) (unknown) (unknown) kV according to patient size.? (units unknown) (unknown) (unknown) (no date) (unknown) (unknown) lactic acid have been ordered (units unknown) (unknown) (unknown) (no date) (unknown) (unknown) maintained. (units unknown) (unknown) (unknown) (no date) (unknown) (unknown) mcg/actuation HFA aerosol inhaler (units unknown) (unknown) (unknown) (no date) (unknown) (unknown) moderate (units unknown) (unknown) (unknown) (no date) (unknown) (unknown) no acute process other than diverticulosis without diverticulitis. states (units unknown) (unknown) (unknown) (no date) (unknown) (unknown) no acute process. CT chest nonspecific opacities (units unknown) (unknown) (unknown) (no date) (unknown) (unknown) opacities.? No pleural effusions.? (units unknown) (unknown) (unknown) (no date) (unknown) (unknown) or early airspace disease.? Consider future imaging surveillance to assess for (units unknown) (unknown) (unknown) (no date) (unknown) (unknown) pain back pain headache (units unknown) (unknown) (unknown) (no date) (unknown) (unknown) parenchymal (units unknown) (unknown) (unknown) (no date) (unknown) (unknown) pathology, consider MRI. (units unknown) (unknown) (unknown) (no date) (unknown) (unknown) patient has had 30 lb weight loss in the past few months with night sweats it in (units unknown) (unknown) (unknown) (no date) (unknown) (unknown) patient (units unknown) (unknown) (unknown) (no date) (unknown) (unknown) pneumococcal 7-valent AdvReac Intermediate swelling Verified 06/16/22 12:46 (units unknown) (unknown) (unknown) (no date) (unknown) (unknown) positive night sweats. Positive weight loss (units unknown) (unknown) (unknown) (no date) (unknown) (unknown) potassium 4.8 BUN 34 creatinine 0.99 glucose 146 lactic acid 4.3. BNP 1430 (units unknown) (unknown) (unknown) (no date) (unknown) (unknown) process. I spoke with dr gillette. However, patient was recently seen at (units unknown) (unknown) (unknown) (no date) (unknown) (unknown) pulmonary apices to the posterior costophrenic angles.? 1 mm axial lung, 5 mm (units unknown) (unknown) (unknown) (no date) (unknown) (unknown) rales, or rhonchi. (units unknown) (unknown) (unknown) (no date) (unknown) (unknown) reduction, the following was used:? automated exposure control, adjustment of mA (units unknown) (unknown) (unknown) (no date) (unknown) (unknown) related. Patient here for routine annual cardiac workup/checkup. Patient (units unknown) (unknown) (unknown) (no date) (unknown) (unknown) resolution. (units unknown) (unknown) (unknown) (no date) (unknown) (unknown) right greater than left pleural effusions.? Consider future imaging surveillance (units unknown) (unknown) (unknown) (no date) (unknown) (unknown) right.? Bibasilar opacities and nodularity also present. (units unknown) (unknown) (unknown) (no date) (unknown) (unknown) sepsis. Patient and family agree for admit. I did speak with hospitalist (units unknown) (unknown) (unknown) (no date) (unknown) (unknown) should be admitted for observation. Do not start any antibiotics at this time. (units unknown) (unknown) (unknown) (no date) (unknown) (unknown) shuffled gait. Generalized weakness and malaise. However no slurred speech or (units unknown) (unknown) (unknown) (no date) (unknown) (unknown) size (units unknown) (unknown) (unknown) (no date) (unknown) (unknown) size.? 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 Patient has history of melanoma. Patient has had recently (units unknown) (unknown) (unknown) (no date) (unknown) (unknown) thick (units unknown) (unknown) (unknown) (no date) (unknown) (unknown) this study.? (units unknown) (unknown) (unknown) (no date) (unknown) (unknown) to the (units unknown) (unknown) (unknown) (no date) (unknown) (unknown) to (units unknown) (unknown) (unknown) (no date) (unknown) (unknown) toxic at this time. (units unknown) (unknown) (unknown) (no date) (unknown) (unknown) troponin less than 0.012, procalcitonin 3.27 (units unknown) (unknown) (unknown) (no date) (unknown) (unknown) unremarkable.? (units unknown) (unknown) (unknown) (no date) (unknown) (unknown) vertex, with coronal and sagittal reformats.? For radiation dose reduction, the (units unknown) (unknown) (unknown) (no date) (unknown) (unknown) visit from a few days ago (units unknown) (unknown) (unknown) (no date) (unknown) (unknown) was used:? automated exposure control, adjustment of mA and/or kV according to (units unknown) (unknown) (unknown) (no date) (unknown) (unknown) which may be related to liver disease.? Please correlate with LFTs, clinical (units unknown) (unknown) (unknown) (no date) (unknown) (unknown) with chronic microangiopathy. Volume loss is present. These findings are (units unknown) (unknown) (unknown) (no date) (unknown) (unknown) with electrode leads.? Coronary calcifications.? No pathologic adenopathy by (units unknown) (unknown) Result panel 263 (unknown) (no date) (unknown) (unknown) (no value) (units unknown) (unknown) (unknown) (no date) (unknown) (unknown) - If clinically appropriate, please consider a follow-up ultrasound-guided (units unknown) (unknown) (unknown) (no date) (unknown) (unknown) [id number] (units unknown) (unknown) (unknown) (no date) (unknown) (unknown) 06/20/22 (units unknown) (unknown) (unknown) (no date) (unknown) (unknown) [address] [place] [address] (units unknown) (unknown) (unknown) (no date) (unknown) (unknown) 1st rib, (units unknown) (unknown) (unknown) (no date) (unknown) (unknown) Accession Number: [id number] (units unknown) (unknown) (unknown) (no date) (unknown) (unknown) Additional findings: (units unknown) (unknown) (unknown) (no date) (unknown) (unknown) After the administration of intravenous contrast, 3.0 mm axial sections (units unknown) (unknown) (unknown) (no date) (unknown) (unknown) Age/Sex: 86 / M Date of Service: (units unknown) (unknown) (unknown) (no date) (unknown) (unknown) [place] [address] (units unknown) (unknown) (unknown) (no date) (unknown) (unknown) Approved by: Scott Puga M.D. on 06/20/2022 at 9:31 (units unknown) (unknown) (unknown) (no date) (unknown) (unknown) At least moderate cervical spine degenerative change (units unknown) (unknown) (unknown) (no date) (unknown) (unknown) Bones: There is a soft tissue mass seen associated with the left posterior (units unknown) (unknown) (unknown) (no date) (unknown) (unknown) COMPARISON: [facility], CT, CT CHEST W [facility], 06/16/2022, 14:03. [place] (units unknown) (unknown) (unknown) (no date) (unknown) (unknown) CT HEAD/BRAIN WO [facility], 06/16/2022, 14:03. (units unknown) (unknown) (unknown) (no date) (unknown) (unknown) CT Scan Report (units unknown) (unknown) (unknown) (no date) (unknown) (unknown) : 1935 Acct:[id number] (units unknown) (unknown) (unknown) (no date) (unknown) (unknown) Dictated by: Scott Puga M.D. on 06/20/2022 at 9:23 (units unknown) (unknown) (unknown) (no date) (unknown) (unknown) FINDINGS: (units unknown) (unknown) (unknown) (no date) (unknown) (unknown) Glands: The parotid and submandibular glands appear normal. Thyroid gland (units unknown) (unknown) (unknown) (no date) (unknown) (unknown) Hospital, CT, (units unknown) (unknown) (unknown) (no date) (unknown) (unknown) IMPRESSION: Soft tissue mass associated with the posterior aspect of the left (units unknown) (unknown) (unknown) (no date) (unknown) (unknown) INDICATIONS: look for metastatic disease, prev melanoma (units unknown) (unknown) (unknown) (no date) (unknown) (unknown) Image quality: Excellent. (units unknown) (unknown) (unknown) (no date) (unknown) (unknown) [facility] (units unknown) (unknown) (unknown) (no date) (unknown) (unknown) Left-sided pacer leads (units unknown) (unknown) (unknown) (no date) (unknown) (unknown) Loc: AC 206-1 (units unknown) (unknown) (unknown) (no date) (unknown) (unknown) Lymph nodes: No enlarged lymph nodes seen throughout the neck. (units unknown) (unknown) (unknown) (no date) (unknown) (unknown) Miscellaneous: (units unknown) (unknown) (unknown) (no date) (unknown) (unknown) Moderate bilateral pleural effusions are seen. (units unknown) (unknown) (unknown) (no date) (unknown) (unknown) Neck spaces: Postoperative clips can be seen involving the right inferolateral (units unknown) (unknown) (unknown) (no date) (unknown) (unknown) Ordering Provider: Tommy Wells D.O. (units unknown) (unknown) (unknown) (no date) (unknown) (unknown) PROCEDURE: CT SOFT TISSUE NECK W CON (units unknown) (unknown) (unknown) (no date) (unknown) (unknown) Patient: Yoseph Cardoso MR#: [id number] (units unknown) (unknown) (unknown) (no date) (unknown) (unknown) Procedure: CT soft tissue neck w con (units unknown) (unknown) (unknown) (no date) (unknown) (unknown) Signed (units unknown) (unknown) (unknown) (no date) (unknown) (unknown) TECHNIQUE: (units unknown) (unknown) (unknown) (no date) (unknown) (unknown) The oropharynx, nasopharynx, and pharynx demonstrate no mucosal lesions. The (units unknown) (unknown) (unknown) (no date) (unknown) (unknown) Vessels: Visualized vasculature appears patent. (units unknown) (unknown) (unknown) (no date) (unknown) (unknown) Visualized brain and orbits appear normal. Moderate bilateral pleural (units unknown) (unknown) (unknown) (no date) (unknown) (unknown) Visualized sinuses and mastoids appear unremarkable. At least moderate (units unknown) (unknown) (unknown) (no date) (unknown) (unknown) acquired from the (units unknown) (unknown) (unknown) (no date) (unknown) (unknown) appear normal. (units unknown) (unknown) (unknown) (no date) (unknown) (unknown) appear (units unknown) (unknown) (unknown) (no date) (unknown) (unknown) base all (units unknown) (unknown) (unknown) (no date) (unknown) (unknown) biopsy for further evaluation. (units unknown) (unknown) (unknown) (no date) (unknown) (unknown) cervical spine (units unknown) (unknown) (unknown) (no date) (unknown) (unknown) cords, false vocal cords, pyriform sinuses, epiglottis, vallecula, and tongue (units unknown) (unknown) (unknown) (no date) (unknown) (unknown) degenerative changes are seen. (units unknown) (unknown) (unknown) (no date) (unknown) (unknown) demonstrates a fracture, with associated bony lysis. A pathologic fracture is (units unknown) (unknown) (unknown) (no date) (unknown) (unknown) demonstrates (units unknown) (unknown) (unknown) (no date) (unknown) (unknown) effusions are (units unknown) (unknown) (unknown) (no date) (unknown) (unknown) medial 1st (units unknown) (unknown) (unknown) (no date) (unknown) (unknown) neck. No (units unknown) (unknown) (unknown) (no date) (unknown) (unknown) no significant abnormality. (units unknown) (unknown) (unknown) (no date) (unknown) (unknown) normal. A left-sided pacer is partially seen. (units unknown) (unknown) (unknown) (no date) (unknown) (unknown) partially seen, with presumed overlying atelectasis. Superficial soft tissues (units unknown) (unknown) (unknown) (no date) (unknown) (unknown) percutaneous (units unknown) (unknown) (unknown) (no date) (unknown) (unknown) pharynx. 3 mm thick coronal and sagittal reformats were generated. For (units unknown) (unknown) (unknown) (no date) (unknown) (unknown) radiation dose (units unknown) (unknown) (unknown) (no date) (unknown) (unknown) reduction, the following was used: automated exposure control. (units unknown) (unknown) (unknown) (no date) (unknown) (unknown) rib that measures 4.3 x 3.5 cm in greatest axial dimension. The 1st rib itself (units unknown) (unknown) (unknown) (no date) (unknown) (unknown) sella to the aortic arch. Additional oblique axial 3.0 mm sections acquired (units unknown) (unknown) (unknown) (no date) (unknown) (unknown) soft tissue masses can be seen within this region. (units unknown) (unknown) (unknown) (no date) (unknown) (unknown) suspected. (units unknown) (unknown) (unknown) (no date) (unknown) (unknown) through the (units unknown) (unknown) (unknown) (no date) (unknown) (unknown) vocal (units unknown) (unknown) (unknown) (no date) (unknown) (unknown) with associated bony lysis and a pathologic fracture. (units unknown) (unknown) Result panel 264 (unknown) (no date) (unknown) (unknown) (no value) (units unknown) (unknown) (unknown) (no date) (unknown) (unknown) NO GROWTH AFTER 4 DAYS (units unknown) (unknown) Result panel 265 (unknown) (no date) (unknown) (unknown) (no value) (units unknown) (unknown) (unknown) (no date) (unknown) (unknown) (past 8 hours): (units unknown) (unknown) (unknown) (no date) (unknown) (unknown) [id number] (units unknown) (unknown) (unknown) (no date) (unknown) (unknown) 06/20/22 06/20/22 06/20/22 (units unknown) (unknown) (unknown) (no date) (unknown) (unknown) 06/20/22 05:35 (units unknown) (unknown) (unknown) (no date) (unknown) (unknown) 06/20/22 (units unknown) (unknown) (unknown) (no date) (unknown) (unknown) 05:35 05:35 05:35 (units unknown) (unknown) (unknown) (no date) (unknown) (unknown) 09:56 06/20/22 (units unknown) (unknown) (unknown) (no date) (unknown) (unknown) 10:09 06/20/22 (units unknown) (unknown) (unknown) (no date) (unknown) (unknown) 11:00 (units unknown) (unknown) (unknown) (no date) (unknown) (unknown) 16:00 (units unknown) (unknown) (unknown) (no date) (unknown) (unknown) ALT 52 H (units unknown) (unknown) (unknown) (no date) (unknown) (unknown) AST 61 H (units unknown) (unknown) (unknown) (no date) (unknown) (unknown) Age/Sex: 86 / M (units unknown) (unknown) (unknown) (no date) (unknown) (unknown) Albumin 2.6 L (units unknown) (unknown) (unknown) (no date) (unknown) (unknown) Albumin/Globulin Ratio 0.9 L (units unknown) (unknown) (unknown) (no date) (unknown) (unknown) Alkaline Phosphatase 559 H (units unknown) (unknown) (unknown) (no date) (unknown) (unknown) Assessment + Plan (units unknown) (unknown) (unknown) (no date) (unknown) (unknown) Asthma (units unknown) (unknown) (unknown) (no date) (unknown) (unknown) Atrial fibrillation (units unknown) (unknown) (unknown) (no date) (unknown) (unknown) BUN 24 H (units unknown) (unknown) (unknown) (no date) (unknown) (unknown) BUN/Creatinine Ratio 31.2 H (units unknown) (unknown) (unknown) (no date) (unknown) (unknown) Baso # (Auto) 0 (units unknown) (unknown) (unknown) (no date) (unknown) (unknown) Baso % (Auto) 0.5 (units unknown) (unknown) (unknown) (no date) (unknown) (unknown) Blood Pressure 133/74 (units unknown) (unknown) (unknown) (no date) (unknown) (unknown) Blood Pressure 143/71 H 143/69 H (units unknown) (unknown) (unknown) (no date) (unknown) (unknown) Calcium 7.8 L (units unknown) (unknown) (unknown) (no date) (unknown) (unknown) Carbon Dioxide 23 (units unknown) (unknown) (unknown) (no date) (unknown) (unknown) Chloride 103 (units unknown) (unknown) (unknown) (no date) (unknown) (unknown) Chronic anticoagulation (units unknown) (unknown) (unknown) (no date) (unknown) (unknown) Creatinine 0.77 (units unknown) (unknown) (unknown) (no date) (unknown) (unknown) Critical Care time: (units unknown) (unknown) (unknown) (no date) (unknown) (unknown) : 1935 Acct:[id number] (units unknown) (unknown) (unknown) (no date) (unknown) (unknown) Date Patient Seen: 06/20/22 (units unknown) (unknown) (unknown) (no date) (unknown) (unknown) Date of Service: 06/16/22 (units unknown) (unknown) (unknown) (no date) (unknown) (unknown) Deep Vein Thrombosis/Pulmonar y Embolism Present on Admission: No (units unknown) (unknown) (unknown) (no date) (unknown) (unknown) Eos # (Auto) 100 (units unknown) (unknown) (unknown) (no date) (unknown) (unknown) Eos % (Auto) 0.8 L (units unknown) (unknown) (unknown) (no date) (unknown) (unknown) Essential hypertension (units unknown) (unknown) (unknown) (no date) (unknown) (unknown) Estimated GFR > 60 (units unknown) (unknown) (unknown) (no date) (unknown) (unknown) Exam (units unknown) (unknown) (unknown) (no date) (unknown) (unknown) Family History (units unknown) (unknown) (unknown) (no date) (unknown) (unknown) Father Diabetes mellitus (units unknown) (unknown) (unknown) (no date) (unknown) (unknown) Fraction of Inspired Oxygen 21 (units unknown) (unknown) (unknown) (no date) (unknown) (unknown) Globulin 2.8 (units unknown) (unknown) (unknown) (no date) (unknown) (unknown) Glucose 85 (units unknown) (unknown) (unknown) (no date) (unknown) (unknown) Hct 47.4 (units unknown) (unknown) (unknown) (no date) (unknown) (unknown) Hgb 15.7 (units unknown) (unknown) (unknown) (no date) (unknown) (unknown) History of melanoma (units unknown) (unknown) (unknown) (no date) (unknown) (unknown) History of permanent cardiac pacemaker placement (units unknown) (unknown) (unknown) (no date) (unknown) (unknown) I spent a total of [] minutes of critical care time on this patient's care (units unknown) (unknown) (unknown) (no date) (unknown) (unknown) [address] [address] (units unknown) (unknown) (unknown) (no date) (unknown) (unknown) Laboratory Results - last 24 hr (units unknown) (unknown) (unknown) (no date) (unknown) (unknown) Labs (units unknown) (unknown) (unknown) (no date) (unknown) (unknown) Labs: (units unknown) (unknown) (unknown) (no date) (unknown) (unknown) Lymph # (Auto) 600 L (units unknown) (unknown) (unknown) (no date) (unknown) (unknown) Lymph % (Auto) 8.5 L (units unknown) (unknown) (unknown) (no date) (unknown) (unknown) MCH 30.5 (units unknown) (unknown) (unknown) (no date) (unknown) (unknown) MCHC 33.2 (units unknown) (unknown) (unknown) (no date) (unknown) (unknown) MCV 91.7 (units unknown) (unknown) (unknown) (no date) (unknown) (unknown) Medical History (Updated 06/17/22 @ 00:55 by Hawa Michael [facility]) (units unknown) (unknown) (unknown) (no date) (unknown) (unknown) [place] # (Auto) 1000 H (units unknown) (unknown) (unknown) (no date) (unknown) (unknown) [place] % (Auto) 14.7 H (units unknown) (unknown) (unknown) (no date) (unknown) (unknown) Mother No problems noted. (units unknown) (unknown) (unknown) (no date) (unknown) (unknown) Neut # (Auto) 5100 (units unknown) (unknown) (unknown) (no date) (unknown) (unknown) Neut % (Auto) 75.5 H (units unknown) (unknown) (unknown) (no date) (unknown) (unknown) Objective (units unknown) (unknown) (unknown) (no date) (unknown) (unknown) Oxygen Delivery Method Room Air (units unknown) (unknown) (unknown) (no date) (unknown) (unknown) Oxygen Delivery Method (units unknown) (unknown) (unknown) (no date) (unknown) (unknown) Oxygen Flow Rate 0 0 (units unknown) (unknown) (unknown) (no date) (unknown) (unknown) Oxygen Flow Rate 0 (units unknown) (unknown) (unknown) (no date) (unknown) (unknown) PFSH (units unknown) (unknown) (unknown) (no date) (unknown) (unknown) Pacemaker (units unknown) (unknown) (unknown) (no date) (unknown) (unknown) Patient: Yoseph Cardoso MR#: [id number] (units unknown) (unknown) (unknown) (no date) (unknown) (unknown) Phosphorus 3.1 (units unknown) (unknown) (unknown) (no date) (unknown) (unknown) Plt Count 176 (units unknown) (unknown) (unknown) (no date) (unknown) (unknown) Potassium 4.1 (units unknown) (unknown) (unknown) (no date) (unknown) (unknown) Progress Note (units unknown) (unknown) (unknown) (no date) (unknown) (unknown) Provider: Tommy Wells D.O. (units unknown) (unknown) (unknown) (no date) (unknown) (unknown) Pulse Oximetry 97 95 97 (units unknown) (unknown) (unknown) (no date) (unknown) (unknown) Pulse Oximetry 98 (units unknown) (unknown) (unknown) (no date) (unknown) (unknown) Pulse Rate 79 97 H (units unknown) (unknown) (unknown) (no date) (unknown) (unknown) Pulse Rate 87 (units unknown) (unknown) (unknown) (no date) (unknown) (unknown) Quality (units unknown) (unknown) (unknown) (no date) (unknown) (unknown) RBC 5.17 (units unknown) (unknown) (unknown) (no date) (unknown) (unknown) RDW 14.6 (units unknown) (unknown) (unknown) (no date) (unknown) (unknown) Respiratory Rate 17 17 (units unknown) (unknown) (unknown) (no date) (unknown) (unknown) Respiratory Rate 17 (units unknown) (unknown) (unknown) (no date) (unknown) (unknown) SaO2/FiO2 Ratio 452 (units unknown) (unknown) (unknown) (no date) (unknown) (unknown) Signed By: (units unknown) (unknown) (unknown) (no date) (unknown) (unknown) Smoking Status: Never smoker (units unknown) (unknown) (unknown) (no date) (unknown) (unknown) Social History (units unknown) (unknown) (unknown) (no date) (unknown) (unknown) Sodium 135 L (units unknown) (unknown) (unknown) (no date) (unknown) (unknown) Subjective (units unknown) (unknown) (unknown) (no date) (unknown) (unknown) Surgical History (Updated 06/16/22 @ 21:27 by Hawa Michael [facility]) (units unknown) (unknown) (unknown) (no date) (unknown) (unknown) Temperature 97.1 F L 97.3 F L (units unknown) (unknown) (unknown) (no date) (unknown) (unknown) Temperature 97.1 F L (units unknown) (unknown) (unknown) (no date) (unknown) (unknown) Time Spent With Patient (units unknown) (unknown) (unknown) (no date) (unknown) (unknown) Total Bilirubin 2.5 H (units unknown) (unknown) (unknown) (no date) (unknown) (unknown) Total Protein 5.4 L (units unknown) (unknown) (unknown) (no date) (unknown) (unknown) VTE (units unknown) (unknown) (unknown) (no date) (unknown) (unknown) Vital Signs (units unknown) (unknown) (unknown) (no date) (unknown) (unknown) WBC 6.7 (units unknown) (unknown) (unknown) (no date) (unknown) (unknown) [Embedded Image Not Available] (units unknown) (unknown) (unknown) (no date) (unknown) (unknown) alcohol intake: current (units unknown) (unknown) (unknown) (no date) (unknown) (unknown) household members: spouse (units unknown) (unknown) (unknown) (no date) (unknown) (unknown) today; this time is exclusive of procedural time. (units unknown) (unknown) Result panel 266 (unknown) (no date) (unknown) (unknown) (no value) (units unknown) (unknown) (unknown) (no date) (unknown) (unknown) (moderately low for age), recent wt loss of 30 lbs, pt reporting decrease in (units unknown) (unknown) (unknown) (no date) (unknown) (unknown) (past 8 hours): (units unknown) (unknown) (unknown) (no date) (unknown) (unknown) -CT guided liver biopsy with IR ordered and will be completed on at 2pm (units unknown) (unknown) (unknown) (no date) (unknown) (unknown) -CT soft tissue neck shows mass lesion behind left 1st rib with pathologic (units unknown) (unknown) (unknown) (no date) (unknown) (unknown) -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 Reeder will order as outpatient at (units unknown) (unknown) (unknown) (no date) (unknown) (unknown) -Patient has a known history of nevoid melanoma status post resection 2 years (units unknown) (unknown) (unknown) (no date) (unknown) (unknown) -spoke with patient's oncology/derm specialist at Dr. Arianna Reeder and updated (units unknown) (unknown) (unknown) (no date) (unknown) (unknown) [id number] (units unknown) (unknown) (unknown) (no date) (unknown) (unknown) 06/20/22 06/20/22 06/20/22 (units unknown) (unknown) (unknown) (no date) (unknown) (unknown) 06/20/22 05:35 (units unknown) (unknown) (unknown) (no date) (unknown) (unknown) 06/20/22 1730 (units unknown) (unknown) (unknown) (no date) (unknown) (unknown) 06/20/22 (units unknown) (unknown) (unknown) (no date) (unknown) (unknown) 05:35 05:35 05:35 (units unknown) (unknown) (unknown) (no date) (unknown) (unknown) 09:56 06/20/22 (units unknown) (unknown) (unknown) (no date) (unknown) (unknown) 1. 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 Sepsis ruled out (units unknown) (unknown) (unknown) (no date) (unknown) (unknown) 3. UTI, treated (units unknown) (unknown) (unknown) (no date) (unknown) (unknown) 4. Acute metabolic encephalopathy, improving (units unknown) (unknown) (unknown) (no date) (unknown) (unknown) 5. Essential hypertension (units unknown) (unknown) (unknown) (no date) (unknown) (unknown) 6. Atrial fibrillation (units unknown) (unknown) (unknown) (no date) (unknown) (unknown) 7. Moderate protein calorie malnutrition r/t poor appetite x1 month aeb BMI 22.9 (units unknown) (unknown) (unknown) (no date) (unknown) (unknown) ? (units unknown) (unknown) (unknown) (no date) (unknown) (unknown) ABD: Soft, NT/ND, BT present in all 4 quadrants, no organomegaly or masses (units unknown) (unknown) (unknown) (no date) (unknown) (unknown) ALT 52 H (units unknown) (unknown) (unknown) (no date) (unknown) (unknown) AST 61 H (units unknown) (unknown) (unknown) (no date) (unknown) (unknown) Age/Sex: 86 / M (units unknown) (unknown) (unknown) (no date) (unknown) (unknown) Albumin 2.6 L (units unknown) (unknown) (unknown) (no date) (unknown) (unknown) Albumin/Globulin Ratio 0.9 L (units unknown) (unknown) (unknown) (no date) (unknown) (unknown) Alkaline Phosphatase 559 H (units unknown) (unknown) (unknown) (no date) (unknown) (unknown) Although he is alert and oriented today, he appears to be unable to make complex (units unknown) (unknown) (unknown) (no date) (unknown) (unknown) Although hepatocellular carcinoma is also in the differential.? (units unknown) (unknown) (unknown) (no date) (unknown) (unknown) Assessment + Plan narrative: (units unknown) (unknown) (unknown) (no date) (unknown) (unknown) Assessment + Plan (units unknown) (unknown) (unknown) (no date) (unknown) (unknown) Asthma (units unknown) (unknown) (unknown) (no date) (unknown) (unknown) Atrial fibrillation (units unknown) (unknown) (unknown) (no date) (unknown) (unknown) BP normotensive today. Continue amlodipine. (units unknown) (unknown) (unknown) (no date) (unknown) (unknown) BUN 24 H (units unknown) (unknown) (unknown) (no date) (unknown) (unknown) BUN/Creatinine Ratio 31.2 H (units unknown) (unknown) (unknown) (no date) (unknown) (unknown) Baso # (Auto) 0 (units unknown) (unknown) (unknown) (no date) (unknown) (unknown) Baso % (Auto) 0.5 (units unknown) (unknown) (unknown) (no date) (unknown) (unknown) Blood Pressure 133/74 (units unknown) (unknown) (unknown) (no date) (unknown) (unknown) Blood Pressure 143/71 H 143/69 H (units unknown) (unknown) (unknown) (no date) (unknown) (unknown) CHEST: Respiratory excursions symmetric, CTAB (units unknown) (unknown) (unknown) (no date) (unknown) (unknown) CV: irregularly irregular, no M/R/G (units unknown) (unknown) (unknown) (no date) (unknown) (unknown) Calcium 7.8 L (units unknown) (unknown) (unknown) (no date) (unknown) (unknown) Carbon Dioxide 23 (units unknown) (unknown) (unknown) (no date) (unknown) (unknown) Chloride 103 (units unknown) (unknown) (unknown) (no date) (unknown) (unknown) Chronic anticoagulation (units unknown) (unknown) (unknown) (no date) (unknown) (unknown) Code status (units unknown) (unknown) (unknown) (no date) (unknown) (unknown) Creatinine 0.77 (units unknown) (unknown) (unknown) (no date) (unknown) (unknown) Critical Care time: (units unknown) (unknown) (unknown) (no date) (unknown) (unknown) : 1935 Acct:[id number] (units unknown) (unknown) (unknown) (no date) (unknown) (unknown) Date Patient Seen: 06/20/22 (units unknown) (unknown) (unknown) (no date) (unknown) (unknown) Date of Service: 06/16/22 (units unknown) (unknown) (unknown) (no date) (unknown) (unknown) Deep Vein Thrombosis/Pulmonar y Embolism Present on Admission: No (units unknown) (unknown) (unknown) (no date) (unknown) (unknown) Diagnosed at [facility].? Urine culture (units unknown) (unknown) (unknown) (no date) (unknown) (unknown) Disposition (units unknown) (unknown) (unknown) (no date) (unknown) (unknown) EXTR: warm, well perfused, no C/C/E (units unknown) (unknown) (unknown) (no date) (unknown) (unknown) Eliquis for biopsy.? He is status post pacemaker. (units unknown) (unknown) (unknown) (no date) (unknown) (unknown) Eos # (Auto) 100 (units unknown) (unknown) (unknown) (no date) (unknown) (unknown) Eos % (Auto) 0.8 L (units unknown) (unknown) (unknown) (no date) (unknown) (unknown) Essential hypertension (units unknown) (unknown) (unknown) (no date) (unknown) (unknown) Estimated GFR > 60 (units unknown) (unknown) (unknown) (no date) (unknown) (unknown) Exam Narrative: (units unknown) (unknown) (unknown) (no date) (unknown) (unknown) Exam (units unknown) (unknown) (unknown) (no date) (unknown) (unknown) Family History (units unknown) (unknown) (unknown) (no date) (unknown) (unknown) Father Diabetes mellitus (units unknown) (unknown) (unknown) (no date) (unknown) (unknown) Fraction of Inspired Oxygen 21 (units unknown) (unknown) (unknown) (no date) (unknown) (unknown) Full (units unknown) (unknown) (unknown) (no date) (unknown) (unknown) GEN:? Pleasant elderly male, alert and oriented x 2, NAD, hard of hearing (units unknown) (unknown) (unknown) (no date) (unknown) (unknown) Globulin 2.8 (units unknown) (unknown) (unknown) (no date) (unknown) (unknown) Glucose 85 (units unknown) (unknown) (unknown) (no date) (unknown) (unknown) HCC (units unknown) (unknown) (unknown) (no date) (unknown) (unknown) HEENT:NC, Face symmetric (units unknown) (unknown) (unknown) (no date) (unknown) (unknown) Hct 47.4 (units unknown) (unknown) (unknown) (no date) (unknown) (unknown) He did have rapid AFib on the date of admission that has not recurred.? Holding (units unknown) (unknown) (unknown) (no date) (unknown) (unknown) Hgb 15.7 (units unknown) (unknown) (unknown) (no date) (unknown) (unknown) History of melanoma (units unknown) (unknown) (unknown) (no date) (unknown) (unknown) History of permanent cardiac pacemaker placement (units unknown) (unknown) (unknown) (no date) (unknown) (unknown) Holding for biopsy (units unknown) (unknown) (unknown) (no date) (unknown) (unknown) I spent a total of [] minutes of critical care time on this patient's care (units unknown) (unknown) (unknown) (no date) (unknown) (unknown) Initially on empiric Zosyn therapy.? Blood and urine cultures are negative to (units unknown) (unknown) (unknown) (no date) (unknown) (unknown) Interval history: (units unknown) (unknown) (unknown) (no date) (unknown) (unknown) [address] [address] (units unknown) (unknown) (unknown) (no date) (unknown) (unknown) Laboratory Results - last 24 hr (units unknown) (unknown) (unknown) (no date) (unknown) (unknown) Labs (units unknown) (unknown) (unknown) (no date) (unknown) (unknown) Labs: (units unknown) (unknown) (unknown) (no date) (unknown) (unknown) Likely home on following liver biopsy. (units unknown) (unknown) (unknown) (no date) (unknown) (unknown) Lymph # (Auto) 600 L (units unknown) (unknown) (unknown) (no date) (unknown) (unknown) Lymph % (Auto) 8.5 L (units unknown) (unknown) (unknown) (no date) (unknown) (unknown) MCH 30.5 (units unknown) (unknown) (unknown) (no date) (unknown) (unknown) MCHC 33.2 (units unknown) (unknown) (unknown) (no date) (unknown) (unknown) MCV 91.7 (units unknown) (unknown) (unknown) (no date) (unknown) (unknown) Medical History (Updated 06/17/22 @ 00:55 by Hawa Michael [facility]) (units unknown) (unknown) (unknown) (no date) (unknown) (unknown) [place] # (Auto) 1000 H (units unknown) (unknown) (unknown) (no date) (unknown) (unknown) [place] % (Auto) 14.7 H (units unknown) (unknown) (unknown) (no date) (unknown) (unknown) Mother No problems noted. (units unknown) (unknown) (unknown) (no date) (unknown) (unknown) NEURO: Alert and oriented x 2, nonfocal (units unknown) (unknown) (unknown) (no date) (unknown) (unknown) Narrative (units unknown) (unknown) (unknown) (no date) (unknown) (unknown) Neut # (Auto) 5100 (units unknown) (unknown) (unknown) (no date) (unknown) (unknown) Neut % (Auto) 75.5 H (units unknown) (unknown) (unknown) (no date) (unknown) (unknown) Objective (units unknown) (unknown) (unknown) (no date) (unknown) (unknown) Oxygen Delivery Method Room Air (units unknown) (unknown) (unknown) (no date) (unknown) (unknown) Oxygen Delivery Method (units unknown) (unknown) (unknown) (no date) (unknown) (unknown) Oxygen Flow Rate 0 0 (units unknown) (unknown) (unknown) (no date) (unknown) (unknown) Oxygen Flow Rate 0 (units unknown) (unknown) (unknown) (no date) (unknown) (unknown) PFSH (units unknown) (unknown) (unknown) (no date) (unknown) (unknown) PO, MNA 10 (at risk for malnutrition), diet recall suggesting inadequate (units unknown) (unknown) (unknown) (no date) (unknown) (unknown) Pacemaker (units unknown) (unknown) (unknown) (no date) (unknown) (unknown) Patient appears to have ongoing mild encephalopathy, but overall is improved.? (units unknown) (unknown) (unknown) (no date) (unknown) (unknown) Patient has evidence of severe protein calorie malnutrition.? He has lost 30 lb (units unknown) (unknown) (unknown) (no date) (unknown) (unknown) Patient: Yoseph Cardoso MR#: [id number] (units unknown) (unknown) (unknown) (no date) (unknown) (unknown) Phosphorus 3.1 (units unknown) (unknown) (unknown) (no date) (unknown) (unknown) Plt Count 176 (units unknown) (unknown) (unknown) (no date) (unknown) (unknown) Potassium 4.1 (units unknown) (unknown) (unknown) (no date) (unknown) (unknown) Progress Note (units unknown) (unknown) (unknown) (no date) (unknown) (unknown) Prophylaxis (units unknown) (unknown) (unknown) (no date) (unknown) (unknown) Provider: Tommy Wells D.O. (units unknown) (unknown) (unknown) (no date) (unknown) (unknown) Pulse Oximetry 97 95 97 (units unknown) (unknown) (unknown) (no date) (unknown) (unknown) Pulse Oximetry 98 (units unknown) (unknown) (unknown) (no date) (unknown) (unknown) Pulse Rate 79 97 H (units unknown) (unknown) (unknown) (no date) (unknown) (unknown) Pulse Rate 87 (units unknown) (unknown) (unknown) (no date) (unknown) (unknown) Quality (units unknown) (unknown) (unknown) (no date) (unknown) (unknown) RBC 5.17 (units unknown) (unknown) (unknown) (no date) (unknown) (unknown) RDW 14.6 (units unknown) (unknown) (unknown) (no date) (unknown) (unknown) Respiratory Rate 17 17 (units unknown) (unknown) (unknown) (no date) (unknown) (unknown) Respiratory Rate 17 (units unknown) (unknown) (unknown) (no date) (unknown) (unknown) SKIN: warm and dry, no rash (units unknown) (unknown) (unknown) (no date) (unknown) (unknown) SaO2/FiO2 Ratio 452 (units unknown) (unknown) (unknown) (no date) (unknown) (unknown) Signed By:<Electronically signed by Tommy Wells D.O.> (units unknown) (unknown) (unknown) (no date) (unknown) (unknown) Smoking Status: Never smoker (units unknown) (unknown) (unknown) (no date) (unknown) (unknown) Social History (units unknown) (unknown) (unknown) (no date) (unknown) (unknown) Sodium 135 L (units unknown) (unknown) (unknown) (no date) (unknown) (unknown) Spoke with patient's derm/oncologist Dr. Reeder at who agreed with liver biopsy (units unknown) (unknown) (unknown) (no date) (unknown) (unknown) Subjective (units unknown) (unknown) (unknown) (no date) (unknown) (unknown) Surgical History (Updated 06/16/22 @ 21:27 by JOSE Crystal) (units unknown) (unknown) (unknown) (no date) (unknown) (unknown) Temperature 97.1 F L 97.3 F L (units unknown) (unknown) (unknown) (no date) (unknown) (unknown) Temperature 97.1 F L (units unknown) (unknown) (unknown) (no date) (unknown) (unknown) Time Spent With Patient (units unknown) (unknown) (unknown) (no date) (unknown) (unknown) Total Bilirubin 2.5 H (units unknown) (unknown) (unknown) (no date) (unknown) (unknown) Total Protein 5.4 L (units unknown) (unknown) (unknown) (no date) (unknown) (unknown) VTE (units unknown) (unknown) (unknown) (no date) (unknown) (unknown) Vital Signs (units unknown) (unknown) (unknown) (no date) (unknown) (unknown) WBC 6.7 (units unknown) (unknown) (unknown) (no date) (unknown) (unknown) [Embedded Image Not Available] (units unknown) (unknown) (unknown) (no date) (unknown) (unknown) ago.? He now has multifocal lesions in the liver and spleen on imaging.? (units unknown) (unknown) (unknown) (no date) (unknown) (unknown) alcohol intake: current (units unknown) (unknown) (unknown) (no date) (unknown) (unknown) and rec soft tissue neck CT and MRI brain. Unable to get MRI due to pacemaker. (units unknown) (unknown) (unknown) (no date) (unknown) (unknown) date.? He is afebrile with a normal white blood cell count. Abx stopped. (units unknown) (unknown) (unknown) (no date) (unknown) (unknown) decisions at this point.? Will await further input from family. (units unknown) (unknown) (unknown) (no date) (unknown) (unknown) fracture of rib (units unknown) (unknown) (unknown) (no date) (unknown) (unknown) her, has clinic appt with patient on 06/28 (units unknown) (unknown) (unknown) (no date) (unknown) (unknown) here is negative thus far.?Zosyn stopped as above (units unknown) (unknown) (unknown) (no date) (unknown) (unknown) household members: spouse (units unknown) (unknown) (unknown) (no date) (unknown) (unknown) kcal/protein intake. (units unknown) (unknown) (unknown) (no date) (unknown) (unknown) over the last few months.?Academic Tutor consulted. (units unknown) (unknown) (unknown) (no date) (unknown) (unknown) today; this time is exclusive of procedural time. (units unknown) (unknown) Result panel 267 (unknown) (no date) (unknown) (unknown) (no value) (units unknown) 75302-1 (unknown) (no date) (unknown) (unknown) (no value) (units unknown) 62081-7 (unknown) (no date) (unknown) (unknown) (no value) (units unknown) 95228-8 (unknown) (no date) (unknown) (unknown) (no value) (units unknown) 80141-1 (unknown) (no date) (unknown) (unknown) (no value) (units unknown) 98726-7 (unknown) (no date) (unknown) (unknown) (no value) (units unknown) 85367-2 (unknown) (no date) (unknown) (unknown) (no value) (units unknown) (unknown) (unknown) (no date) (unknown) (unknown) (no value) (units unknown) (unknown) (unknown) (no date) (unknown) (unknown) (no value) (units unknown) (unknown) (unknown) (no date) (unknown) (unknown) (no value) (units unknown) (unknown) (unknown) (no date) (unknown) (unknown) (no value) (units unknown) (unknown) (unknown) (no date) (unknown) (unknown) (no value) (units unknown) (unknown) (unknown) (no date) (unknown) (unknown) Comment: (units unknown) 79921-4 (unknown) (no date) (unknown) (unknown) Comment: (units unknown) (unknown) Result panel 268 (unknown) (no date) (unknown) (unknown) (no value) (units unknown) (unknown) (unknown) (no date) (unknown) (unknown) (past 8 hours): (units unknown) (unknown) (unknown) (no date) (unknown) (unknown) [id number] (units unknown) (unknown) (unknown) (no date) (unknown) (unknown) 06/20/22 05:35 (units unknown) (unknown) (unknown) (no date) (unknown) (unknown) 06/21/22 (units unknown) (unknown) (unknown) (no date) (unknown) (unknown) 08:00 (units unknown) (unknown) (unknown) (no date) (unknown) (unknown) 08:29 06/21/22 (units unknown) (unknown) (unknown) (no date) (unknown) (unknown) Age/Sex: 86 / M (units unknown) (unknown) (unknown) (no date) (unknown) (unknown) Assessment + Plan (units unknown) (unknown) (unknown) (no date) (unknown) (unknown) Asthma (units unknown) (unknown) (unknown) (no date) (unknown) (unknown) Atrial fibrillation (units unknown) (unknown) (unknown) (no date) (unknown) (unknown) Blood Pressure 145/78 H (units unknown) (unknown) (unknown) (no date) (unknown) (unknown) Chronic anticoagulation (units unknown) (unknown) (unknown) (no date) (unknown) (unknown) Critical Care time: (units unknown) (unknown) (unknown) (no date) (unknown) (unknown) : 1935 Acct:[id number] (units unknown) (unknown) (unknown) (no date) (unknown) (unknown) Date Patient Seen: 06/20/22 (units unknown) (unknown) (unknown) (no date) (unknown) (unknown) Date of Service: 06/16/22 (units unknown) (unknown) (unknown) (no date) (unknown) (unknown) Deep Vein Thrombosis/Pulmonar y Embolism Present on Admission: No (units unknown) (unknown) (unknown) (no date) (unknown) (unknown) Essential hypertension (units unknown) (unknown) (unknown) (no date) (unknown) (unknown) Exam (units unknown) (unknown) (unknown) (no date) (unknown) (unknown) Family History (units unknown) (unknown) (unknown) (no date) (unknown) (unknown) Father Diabetes mellitus (units unknown) (unknown) (unknown) (no date) (unknown) (unknown) Fraction of Inspired Oxygen 21 (units unknown) (unknown) (unknown) (no date) (unknown) (unknown) History of melanoma (units unknown) (unknown) (unknown) (no date) (unknown) (unknown) History of permanent cardiac pacemaker placement (units unknown) (unknown) (unknown) (no date) (unknown) (unknown) I spent a total of [] minutes of critical care time on this patient's care (units unknown) (unknown) (unknown) (no date) (unknown) (unknown) Interval history: (units unknown) (unknown) (unknown) (no date) (unknown) (unknown) [address] [address] (units unknown) (unknown) (unknown) (no date) (unknown) (unknown) Labs (units unknown) (unknown) (unknown) (no date) (unknown) (unknown) Medical History (Updated 06/17/22 @ 00:55 by Hawa Michael [facility]) (units unknown) (unknown) (unknown) (no date) (unknown) (unknown) Mother No problems noted. (units unknown) (unknown) (unknown) (no date) (unknown) (unknown) Objective (units unknown) (unknown) (unknown) (no date) (unknown) (unknown) Oxygen Delivery Method Room Air (units unknown) (unknown) (unknown) (no date) (unknown) (unknown) Oxygen Flow Rate 0 (units unknown) (unknown) (unknown) (no date) (unknown) (unknown) PFSH (units unknown) (unknown) (unknown) (no date) (unknown) (unknown) Pacemaker (units unknown) (unknown) (unknown) (no date) (unknown) (unknown) Patient: Yoseph Cardoso MR#: [id number] (units unknown) (unknown) (unknown) (no date) (unknown) (unknown) Progress Note (units unknown) (unknown) (unknown) (no date) (unknown) (unknown) Provider: Jim Syed D.O. (units unknown) (unknown) (unknown) (no date) (unknown) (unknown) Pulse Oximetry 96 95 (units unknown) (unknown) (unknown) (no date) (unknown) (unknown) Pulse Rate 84 85 (units unknown) (unknown) (unknown) (no date) (unknown) (unknown) Quality (units unknown) (unknown) (unknown) (no date) (unknown) (unknown) Respiratory Rate 18 17 (units unknown) (unknown) (unknown) (no date) (unknown) (unknown) SaO2/FiO2 Ratio 452 (units unknown) (unknown) (unknown) (no date) (unknown) (unknown) Signed By: (units unknown) (unknown) (unknown) (no date) (unknown) (unknown) Smoking Status: Never smoker (units unknown) (unknown) (unknown) (no date) (unknown) (unknown) Social History (units unknown) (unknown) (unknown) (no date) (unknown) (unknown) Spoke with patient's derm/oncologist Dr. Reeder at who agreed with liver biopsy (units unknown) (unknown) (unknown) (no date) (unknown) (unknown) Subjective (units unknown) (unknown) (unknown) (no date) (unknown) (unknown) Surgical History (Updated 06/16/22 @ 21:27 by Hawa Michael [facility]) (units unknown) (unknown) (unknown) (no date) (unknown) (unknown) Temperature 97.1 F L (units unknown) (unknown) (unknown) (no date) (unknown) (unknown) Time Spent With Patient (units unknown) (unknown) (unknown) (no date) (unknown) (unknown) VTE (units unknown) (unknown) (unknown) (no date) (unknown) (unknown) Vital Signs (units unknown) (unknown) (unknown) (no date) (unknown) (unknown) [Embedded Image Not Available] (units unknown) (unknown) (unknown) (no date) (unknown) (unknown) alcohol intake: current (units unknown) (unknown) (unknown) (no date) (unknown) (unknown) and rec soft tissue neck CT and MRI brain. Unable to get MRI due to pacemaker. (units unknown) (unknown) (unknown) (no date) (unknown) (unknown) household members: spouse (units unknown) (unknown) (unknown) (no date) (unknown) (unknown) today; this time is exclusive of procedural time. (units unknown) (unknown) Result panel 269 (unknown) (no date) (unknown) (unknown) (no value) (units unknown) (unknown) (unknown) (no date) (unknown) (unknown) NO GROWTH AFTER 5 DAYS (units unknown) (unknown) Result panel 270 (unknown) (no date) (unknown) (unknown) (no value) (units unknown) (unknown) (unknown) (no date) (unknown) (unknown) (moderately low for age), recent wt loss of 30 lbs, pt reporting decrease in (units unknown) (unknown) (unknown) (no date) (unknown) (unknown) (past 8 hours): (units unknown) (unknown) (unknown) (no date) (unknown) (unknown) -CT guided liver biopsy with IR ordered and will be completed on today 06/21, (units unknown) (unknown) (unknown) (no date) (unknown) (unknown) -CT soft tissue neck shows mass lesion behind left 1st rib with pathologic (units unknown) (unknown) (unknown) (no date) (unknown) (unknown) -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 Reeder will order as outpatient at (units unknown) (unknown) (unknown) (no date) (unknown) (unknown) -Patient has a known history of nevoid melanoma status post resection 2 years (units unknown) (unknown) (unknown) (no date) (unknown) (unknown) -spoke with patient's oncology/derm specialist at Dr. Arianna Reeder and updated (units unknown) (unknown) (unknown) (no date) (unknown) (unknown) [id number] (units unknown) (unknown) (unknown) (no date) (unknown) (unknown) 06/20/22 05:35 (units unknown) (unknown) (unknown) (no date) (unknown) (unknown) 06/21/22 1352 (units unknown) (unknown) (unknown) (no date) (unknown) (unknown) 06/21/22 (units unknown) (unknown) (unknown) (no date) (unknown) (unknown) 08:00 (units unknown) (unknown) (unknown) (no date) (unknown) (unknown) 08:29 06/21/22 (units unknown) (unknown) (unknown) (no date) (unknown) (unknown) 1. 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 Sepsis ruled out (units unknown) (unknown) (unknown) (no date) (unknown) (unknown) 3. UTI, treated (units unknown) (unknown) (unknown) (no date) (unknown) (unknown) 4. Acute metabolic encephalopathy, improving (units unknown) (unknown) (unknown) (no date) (unknown) (unknown) 5. Essential hypertension (units unknown) (unknown) (unknown) (no date) (unknown) (unknown) 6. Atrial fibrillation (units unknown) (unknown) (unknown) (no date) (unknown) (unknown) 7. Moderate protein calorie malnutrition r/t poor appetite x1 month aeb BMI 22.9 (units unknown) (unknown) (unknown) (no date) (unknown) (unknown) ? (units unknown) (unknown) (unknown) (no date) (unknown) (unknown) ABD: Soft, NT/ND, BT present in all 4 quadrants, no organomegaly or masses (units unknown) (unknown) (unknown) (no date) (unknown) (unknown) Age/Sex: 86 / M (units unknown) (unknown) (unknown) (no date) (unknown) (unknown) Although hepatocellular carcinoma is also in the differential.? (units unknown) (unknown) (unknown) (no date) (unknown) (unknown) Assessment + Plan narrative: (units unknown) (unknown) (unknown) (no date) (unknown) (unknown) Assessment + Plan (units unknown) (unknown) (unknown) (no date) (unknown) (unknown) Asthma (units unknown) (unknown) (unknown) (no date) (unknown) (unknown) Atrial fibrillation (units unknown) (unknown) (unknown) (no date) (unknown) (unknown) BP normotensive today. Continue amlodipine. (units unknown) (unknown) (unknown) (no date) (unknown) (unknown) Blood Pressure 145/78 H (units unknown) (unknown) (unknown) (no date) (unknown) (unknown) CHEST: Respiratory excursions symmetric, CTAB (units unknown) (unknown) (unknown) (no date) (unknown) (unknown) CV: irregularly irregular, no M/R/G (units unknown) (unknown) (unknown) (no date) (unknown) (unknown) Chronic anticoagulation (units unknown) (unknown) (unknown) (no date) (unknown) (unknown) Code status (units unknown) (unknown) (unknown) (no date) (unknown) (unknown) Critical Care time: (units unknown) (unknown) (unknown) (no date) (unknown) (unknown) : 1935 Acct:[id number] (units unknown) (unknown) (unknown) (no date) (unknown) (unknown) Date Patient Seen: 06/20/22 (units unknown) (unknown) (unknown) (no date) (unknown) (unknown) Date of Service: 06/16/22 (units unknown) (unknown) (unknown) (no date) (unknown) (unknown) Deep Vein Thrombosis/Pulmonar y Embolism Present on Admission: No (units unknown) (unknown) (unknown) (no date) (unknown) (unknown) Diagnosed at [facility].? Urine culture (units unknown) (unknown) (unknown) (no date) (unknown) (unknown) Disposition (units unknown) (unknown) (unknown) (no date) (unknown) (unknown) EXTR: warm, well perfused, no C/C/E (units unknown) (unknown) (unknown) (no date) (unknown) (unknown) Eliquis for biopsy.? He is status post pacemaker. (units unknown) (unknown) (unknown) (no date) (unknown) (unknown) Essential hypertension (units unknown) (unknown) (unknown) (no date) (unknown) (unknown) Exam Narrative: (units unknown) (unknown) (unknown) (no date) (unknown) (unknown) Exam (units unknown) (unknown) (unknown) (no date) (unknown) (unknown) Family History (units unknown) (unknown) (unknown) (no date) (unknown) (unknown) Father Diabetes mellitus (units unknown) (unknown) (unknown) (no date) (unknown) (unknown) Fraction of Inspired Oxygen 21 (units unknown) (unknown) (unknown) (no date) (unknown) (unknown) Full (units unknown) (unknown) (unknown) (no date) (unknown) (unknown) GEN:? Pleasant elderly male, alert and oriented x 2, NAD, hard of hearing (units unknown) (unknown) (unknown) (no date) (unknown) (unknown) HCC (units unknown) (unknown) (unknown) (no date) (unknown) (unknown) HEENT:NC, Face symmetric (units unknown) (unknown) (unknown) (no date) (unknown) (unknown) He did have rapid AFib on the date of admission that has not recurred.? Holding (units unknown) (unknown) (unknown) (no date) (unknown) (unknown) History of melanoma (units unknown) (unknown) (unknown) (no date) (unknown) (unknown) History of permanent cardiac pacemaker placement (units unknown) (unknown) (unknown) (no date) (unknown) (unknown) Holding for biopsy (units unknown) (unknown) (unknown) (no date) (unknown) (unknown) Home vs SNF depending on progress with PT, most likely tomorrow. Appreciate care (units unknown) (unknown) (unknown) (no date) (unknown) (unknown) I spent a total of [] minutes of critical care time on this patient's care (units unknown) (unknown) (unknown) (no date) (unknown) (unknown) Initially on empiric Zosyn therapy.? Blood and urine cultures are negative to (units unknown) (unknown) (unknown) (no date) (unknown) (unknown) Interval history: (units unknown) (unknown) (unknown) (no date) (unknown) (unknown) [address] [address] (units unknown) (unknown) (unknown) (no date) (unknown) (unknown) Labs (units unknown) (unknown) (unknown) (no date) (unknown) (unknown) Medical History (Updated 06/17/22 @ 00:55 by JOSE Crystal) (units unknown) (unknown) (unknown) (no date) (unknown) (unknown) Mother No problems noted. (units unknown) (unknown) (unknown) (no date) (unknown) (unknown) NEURO: Alert and oriented x 2, nonfocal (units unknown) (unknown) (unknown) (no date) (unknown) (unknown) Narrative (units unknown) (unknown) (unknown) (no date) (unknown) (unknown) Objective (units unknown) (unknown) (unknown) (no date) (unknown) (unknown) Oxygen Delivery Method Room Air (units unknown) (unknown) (unknown) (no date) (unknown) (unknown) Oxygen Flow Rate 0 (units unknown) (unknown) (unknown) (no date) (unknown) (unknown) PFSH (units unknown) (unknown) (unknown) (no date) (unknown) (unknown) PO, MNA 10 (at risk for malnutrition), diet recall suggesting inadequate (units unknown) (unknown) (unknown) (no date) (unknown) (unknown) Pacemaker (units unknown) (unknown) (unknown) (no date) (unknown) (unknown) Patient appears to have ongoing mild encephalopathy, but overall is improved and (units unknown) (unknown) (unknown) (no date) (unknown) (unknown) Patient has evidence of severe protein calorie malnutrition.? He has lost 30 lb (units unknown) (unknown) (unknown) (no date) (unknown) (unknown) Patient with no complaints today, a bit stronger, did better with PT again (units unknown) (unknown) (unknown) (no date) (unknown) (unknown) Patient: Yoseph Cardoso MR#: [id number] (units unknown) (unknown) (unknown) (no date) (unknown) (unknown) Progress Note (units unknown) (unknown) (unknown) (no date) (unknown) (unknown) Prophylaxis (units unknown) (unknown) (unknown) (no date) (unknown) (unknown) Provider: Jim Syed D.O. (units unknown) (unknown) (unknown) (no date) (unknown) (unknown) Pulse Oximetry 96 95 (units unknown) (unknown) (unknown) (no date) (unknown) (unknown) Pulse Rate 84 85 (units unknown) (unknown) (unknown) (no date) (unknown) (unknown) Quality (units unknown) (unknown) (unknown) (no date) (unknown) (unknown) Respiratory Rate 18 17 (units unknown) (unknown) (unknown) (no date) (unknown) (unknown) SKIN: warm and dry, no rash (units unknown) (unknown) (unknown) (no date) (unknown) (unknown) SaO2/FiO2 Ratio 452 (units unknown) (unknown) (unknown) (no date) (unknown) (unknown) Signed By:<Electronically signed by Jim Syed D.O.> (units unknown) (unknown) (unknown) (no date) (unknown) (unknown) Smoking Status: Never smoker (units unknown) (unknown) (unknown) (no date) (unknown) (unknown) Social History (units unknown) (unknown) (unknown) (no date) (unknown) (unknown) Subjective (units unknown) (unknown) (unknown) (no date) (unknown) (unknown) Surgical History (Updated 06/16/22 @ 21:27 by Hawa Michael [facility]) (units unknown) (unknown) (unknown) (no date) (unknown) (unknown) Temperature 97.1 F L (units unknown) (unknown) (unknown) (no date) (unknown) (unknown) Time Spent With Patient (units unknown) (unknown) (unknown) (no date) (unknown) (unknown) VTE (units unknown) (unknown) (unknown) (no date) (unknown) (unknown) Vital Signs (units unknown) (unknown) (unknown) (no date) (unknown) (unknown) [Embedded Image Not Available] (units unknown) (unknown) (unknown) (no date) (unknown) (unknown) ago.? He now has multifocal lesions in the liver and spleen on imaging.? (units unknown) (unknown) (unknown) (no date) (unknown) (unknown) alcohol intake: current (units unknown) (unknown) (unknown) (no date) (unknown) (unknown) biopsy today depending on progress with therapy. (units unknown) (unknown) (unknown) (no date) (unknown) (unknown) continuing to improve each day. (units unknown) (unknown) (unknown) (no date) (unknown) (unknown) date.? He is afebrile with a normal white blood cell count. Abx stopped. (units unknown) (unknown) (unknown) (no date) (unknown) (unknown) fracture of rib (units unknown) (unknown) (unknown) (no date) (unknown) (unknown) her, has clinic appt with patient on 06/28 (units unknown) (unknown) (unknown) (no date) (unknown) (unknown) here is negative thus far.?Zosyn stopped as above (units unknown) (unknown) (unknown) (no date) (unknown) (unknown) household members: spouse (units unknown) (unknown) (unknown) (no date) (unknown) (unknown) kcal/protein intake. (units unknown) (unknown) (unknown) (no date) (unknown) (unknown) management assistance. (units unknown) (unknown) (unknown) (no date) (unknown) (unknown) monitor afterward here for complications, possible discharge to SNF tomorrow. (units unknown) (unknown) (unknown) (no date) (unknown) (unknown) over the last few months.?Academic Tutor consulted. (units unknown) (unknown) (unknown) (no date) (unknown) (unknown) today. Awaiting liver biopsy. May discharge to SNF or home tomorrow after late (units unknown) (unknown) (unknown) (no date) (unknown) (unknown) today; this time is exclusive of procedural time. (units unknown) (unknown) Result panel 271 (unknown) (no date) (unknown) (unknown) (no value) (units unknown) (unknown) (unknown) (no date) (unknown) (unknown) (units unknown) (unknown) (unknown) (no date) (unknown) (unknown) Performed at: 01 (units unknown) (unknown) (unknown) (no date) (unknown) (unknown) . 01 (units unknown) (unknown) (unknown) (no date) (unknown) (unknown) . (units unknown) (unknown) (unknown) (no date) (unknown) (unknown) /DAVID 06/22/2022 0103 Local (units unknown) (unknown) (unknown) (no date) (unknown) (unknown) 0.6 x 0.1 x 0.1 cm to 1.9 x 0.1 x 0.1 cm submitted entirely in 1 (units unknown) (unknown) (unknown) (no date) (unknown) (unknown) [address] [place] [address] (units unknown) (unknown) (unknown) (no date) (unknown) (unknown) [address] [place] [address] [phone] (units unknown) (unknown) (unknown) (no date) (unknown) (unknown) [id number] (units unknown) (unknown) (unknown) (no date) (unknown) (unknown) [place] [address] (units unknown) (unknown) (unknown) (no date) (unknown) (unknown) As part of routine quality control inspector heading, Dr. Toussaint has reviewed this case (units unknown) (unknown) (unknown) (no date) (unknown) (unknown) C78.7 (units unknown) (unknown) (unknown) (no date) (unknown) (unknown) CPT . (units unknown) (unknown) (unknown) (no date) (unknown) (unknown) Collection Date: 06/21/22 (units unknown) (unknown) (unknown) (no date) (unknown) (unknown) Comment: (units unknown) (unknown) (unknown) (no date) (unknown) (unknown) DD/ 0000 (units unknown) (unknown) (unknown) (no date) (unknown) (unknown) Date of : 1935 Admit Date: 06/16/22 (units unknown) (unknown) (unknown) (no date) (unknown) (unknown) Diagnosis: (units unknown) (unknown) (unknown) (no date) (unknown) (unknown) Dictated By: Tommy Molina MD (units unknown) (unknown) (unknown) (no date) (unknown) (unknown) Electronically signed: . (units unknown) (unknown) (unknown) (no date) (unknown) (unknown) Gross description: . (units unknown) (unknown) (unknown) (no date) (unknown) (unknown) [facility] (units unknown) (unknown) (unknown) (no date) (unknown) (unknown) [facility] Accession Number: [id number] (units unknown) (unknown) (unknown) (no date) (unknown) (unknown) LIVER TISSUE: (units unknown) (unknown) (unknown) (no date) (unknown) (unknown) [facility] Cytology (units unknown) (unknown) (unknown) (no date) (unknown) (unknown) Liver, Needle Core Biopsies: (units unknown) (unknown) (unknown) (no date) (unknown) (unknown) MD Donovan Mckenzie MD Phone: [phone] (units unknown) (unknown) (unknown) (no date) (unknown) (unknown) Dictating Dr: Tommy Molina MD (units unknown) (unknown) (unknown) (no date) (unknown) (unknown) MRV 06/23/2022 1317 Local (units unknown) (unknown) (unknown) (no date) (unknown) (unknown) Material submitted: . (units unknown) (unknown) (unknown) (no date) (unknown) (unknown) Tommy Molina MD, PhD, Pathologist (units unknown) (unknown) (unknown) (no date) (unknown) (unknown) NPI- [id number] (units unknown) (unknown) (unknown) (no date) (unknown) (unknown) No. of containers..01 Tissue (units unknown) (unknown) (unknown) (no date) (unknown) (unknown) Ordering Physician: Johnathan Lane MD (units unknown) (unknown) (unknown) (no date) (unknown) (unknown) Pathologist provided ICD-10: (units unknown) (unknown) (unknown) (no date) (unknown) (unknown) Pathology Diagnostic Report (units unknown) (unknown) (unknown) (no date) (unknown) (unknown) Patient name: Yoseph Cardoso (units unknown) (unknown) (unknown) (no date) (unknown) (unknown) Positive for malignancy, morphologically consistent with metastatic (units unknown) (unknown) (unknown) (no date) (unknown) (unknown) Received in formalin are 4 fragment(s) of montoya, soft tissue measuring (units unknown) (unknown) (unknown) (no date) (unknown) (unknown) Signed By: 06/23/221834 (units unknown) (unknown) (unknown) (no date) (unknown) (unknown) Signed (units unknown) (unknown) (unknown) (no date) (unknown) (unknown) TD/TT: 06/23/221834 (units unknown) (unknown) (unknown) (no date) (unknown) (unknown) The history of melanoma is noted. 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 (units unknown) (unknown) (unknown) (no date) (unknown) (unknown) cassette(s) (units unknown) (unknown) (unknown) (no date) (unknown) (unknown) expanded by a proliferation of epithelioid cells in a nested and diffuse (units unknown) (unknown) (unknown) (no date) (unknown) (unknown) features are consistent with metastatic melanoma. (units unknown) (unknown) (unknown) (no date) (unknown) (unknown) growth pattern. Melanin pigment is readily identified. The overall (units unknown) (unknown) (unknown) (no date) (unknown) (unknown) liver - LIVER TISSUE (units unknown) (unknown) (unknown) (no date) (unknown) (unknown) melanoma. (units unknown) (unknown) Result panel 272 (unknown) (no date) (unknown) (unknown) 46.0 % (unknown) (unknown) (no date) (unknown) (unknown) 46.0 % (unknown) Result panel 273 (unknown) (no date) (unknown) (unknown) 15.7 g/dl (unknown) (unknown) (no date) (unknown) (unknown) 15.7 g/dl (unknown) Result panel 274 (unknown) (no date) (unknown) (unknown) (no value) (units unknown) (unknown) (unknown) (no date) (unknown) (unknown) No cells or organisms seen (units unknown) (unknown) (unknown) (no date) (unknown) (unknown) No cells or organisms seen (units unknown) (unknown) Result panel 275 (unknown) (no date) (unknown) (unknown) (no value) (units unknown) (unknown) (unknown) (no date) (unknown) (unknown) No cells or organisms seen (units unknown) (unknown) (unknown) (no date) (unknown) (unknown) No cells or organisms seen (units unknown) (unknown) Result panel 276 (unknown) (no date) (unknown) (unknown) (no value) (units unknown) (unknown) (unknown) (no date) (unknown) (unknown) (past 8 hours): (units unknown) (unknown) (unknown) (no date) (unknown) (unknown) [phone] (units unknown) (unknown) (unknown) (no date) (unknown) (unknown) 06/16/22 15:35 (units unknown) (unknown) (unknown) (no date) (unknown) (unknown) 06/16/22 20:34 (units unknown) (unknown) (unknown) (no date) (unknown) (unknown) 06/16/22 20:35 (units unknown) (unknown) (unknown) (no date) (unknown) (unknown) 06/16/22 21:05 (units unknown) (unknown) (unknown) (no date) (unknown) (unknown) 06/17/22 01:19 (units unknown) (unknown) (unknown) (no date) (unknown) (unknown) 06/17/22 02:01 (units unknown) (unknown) (unknown) (no date) (unknown) (unknown) 06/20/22 05:35 (units unknown) (unknown) (unknown) (no date) (unknown) (unknown) 06/20/22 13:17 (units unknown) (unknown) (unknown) (no date) (unknown) (unknown) 06/21/22 17:50 (units unknown) (unknown) (unknown) (no date) (unknown) (unknown) 06/22/22 14:25 (units unknown) (unknown) (unknown) (no date) (unknown) (unknown) 17.6, INR 1.5, PTT 38. Sodium 135, BUN 34, glucose 146, calcium 8.1, magnesium (units unknown) (unknown) (unknown) (no date) (unknown) (unknown) 2.6, phosphorus 4.1, bili 2.1, AST 61, ALT 63, alk-phos 428, total protein 5.8, (units unknown) (unknown) (unknown) (no date) (unknown) (unknown) 20s. During admit interview patient is pleasantly confused orientated to self (units unknown) (unknown) (unknown) (no date) (unknown) (unknown) 300 mg PO BID (units unknown) (unknown) (unknown) (no date) (unknown) (unknown) 44 mcg INHALATION DAILY (units unknown) (unknown) (unknown) (no date) (unknown) (unknown) 5 mg PO BID (units unknown) (unknown) (unknown) (no date) (unknown) (unknown) 5 mg PO DAILY (units unknown) (unknown) (unknown) (no date) (unknown) (unknown) 98% on room air. Patient did get up and ambulate to the restroom w/MA without (units unknown) (unknown) (unknown) (no date) (unknown) (unknown) Activity: As tolerated (units unknown) (unknown) (unknown) (no date) (unknown) (unknown) Age/Sex: 86 / M (units unknown) (unknown) (unknown) (no date) (unknown) (unknown) Asthma (units unknown) (unknown) (unknown) (no date) (unknown) (unknown) Atrial fibrillation (units unknown) (unknown) (unknown) (no date) (unknown) (unknown) Chief complaint: Pain near pacemaker (units unknown) (unknown) (unknown) (no date) (unknown) (unknown) Chronic anticoagulation (units unknown) (unknown) (unknown) (no date) (unknown) (unknown) Comment: Cachexia, liver biopsy, weakness (units unknown) (unknown) (unknown) (no date) (unknown) (unknown) Comment: 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 (units unknown) (unknown) (unknown) (no date) (unknown) (unknown) Comment: weakness (units unknown) (unknown) (unknown) (no date) (unknown) (unknown) Comment: (units unknown) (unknown) (unknown) (no date) (unknown) (unknown) Consult to Dietitian, Adult Routine (units unknown) (unknown) (unknown) (no date) (unknown) (unknown) Consult to Discharge Planning Routine (units unknown) (unknown) (unknown) (no date) (unknown) (unknown) Consult to Home Health Routine (units unknown) (unknown) (unknown) (no date) (unknown) (unknown) Consult to [facility] [place] - Traffic Warehouse Supervisor Routine (units unknown) (unknown) (unknown) (no date) (unknown) (unknown) Consult to Occupational Therapy Evaluate + Treat (units unknown) (unknown) (unknown) (no date) (unknown) (unknown) Consult to Physical Therapy Evaluate + Treat (units unknown) (unknown) (unknown) (no date) (unknown) (unknown) Consult to Physician Routine (units unknown) (unknown) (unknown) (no date) (unknown) (unknown) Consult to Traffic Warehouse Supervisor Routine (units unknown) (unknown) (unknown) (no date) (unknown) (unknown) Consult to Speech Therapy Evaluate + Treat (units unknown) (unknown) (unknown) (no date) (unknown) (unknown) Consulting Provider: Aletha Turner (units unknown) (unknown) (unknown) (no date) (unknown) (unknown) Consults: (units unknown) (unknown) (unknown) (no date) (unknown) (unknown) Continued (units unknown) (unknown) (unknown) (no date) (unknown) (unknown) : 1935 Acct:[id number] (units unknown) (unknown) (unknown) (no date) (unknown) (unknown) Date Patient Seen: 06/22/22 (units unknown) (unknown) (unknown) (no date) (unknown) (unknown) Date of Service: 06/16/22 (units unknown) (unknown) (unknown) (no date) (unknown) (unknown) Date of admission: (units unknown) (unknown) (unknown) (no date) (unknown) (unknown) Deep Vein Thrombosis/Pulmonar y Embolism Present on Admission: No (units unknown) (unknown) (unknown) (no date) (unknown) (unknown) Diet/Activity/Treat ments (units unknown) (unknown) (unknown) (no date) (unknown) (unknown) Diet: Diet as Tolerated (units unknown) (unknown) (unknown) (no date) (unknown) (unknown) Discharge Data (units unknown) (unknown) (unknown) (no date) (unknown) (unknown) Discharge Date: 06/22/22 (units unknown) (unknown) (unknown) (no date) (unknown) (unknown) Discharge Plan (units unknown) (unknown) (unknown) (no date) (unknown) (unknown) Discharge Providers (units unknown) (unknown) (unknown) (no date) (unknown) (unknown) Discharge Summary (units unknown) (unknown) (unknown) (no date) (unknown) (unknown) Discharge orders + Medications (units unknown) (unknown) (unknown) (no date) (unknown) (unknown) Discharge provider: (units unknown) (unknown) (unknown) (no date) (unknown) (unknown) Yoseph Cardoso is a 86-year-old male with a history of atrial fibrillation, with (units unknown) (unknown) (unknown) (no date) (unknown) (unknown) Lucien Lan MD (units unknown) (unknown) (unknown) (no date) (unknown) (unknown) Eliquis 5 mg tablet (units unknown) (unknown) (unknown) (no date) (unknown) (unknown) End of Life/Goal Care Dis (units unknown) (unknown) (unknown) (no date) (unknown) (unknown) Essential hypertension (units unknown) (unknown) (unknown) (no date) (unknown) (unknown) Exam (units unknown) (unknown) (unknown) (no date) (unknown) (unknown) Family History (units unknown) (unknown) (unknown) (no date) (unknown) (unknown) Father Diabetes mellitus (units unknown) (unknown) (unknown) (no date) (unknown) (unknown) Follow up/Referrals: (units unknown) (unknown) (unknown) (no date) (unknown) (unknown) Fraction of Inspired Oxygen 21 (units unknown) (unknown) (unknown) (no date) (unknown) (unknown) Has provider been notified: No (units unknown) (unknown) (unknown) (no date) (unknown) (unknown) Head CT negative. CXR ?Possible mild right and retrocardiac opacities Chest CT (units unknown) (unknown) (unknown) (no date) (unknown) (unknown) History of Present Illness (units unknown) (unknown) (unknown) (no date) (unknown) (unknown) History of melanoma (units unknown) (unknown) (unknown) (no date) (unknown) (unknown) History of permanent cardiac pacemaker placement (units unknown) (unknown) (unknown) (no date) (unknown) (unknown) Inhale 2 puff using inhaler twice a day (units unknown) (unknown) (unknown) (no date) (unknown) (unknown) [address] [address] (units unknown) (unknown) (unknown) (no date) (unknown) (unknown) Labs (units unknown) (unknown) (unknown) (no date) (unknown) (unknown) Lucien Lan MD [Primary Care Provider] (units unknown) (unknown) (unknown) (no date) (unknown) (unknown) 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 (units unknown) (unknown) (unknown) (no date) (unknown) (unknown) Narrative: (units unknown) (unknown) (unknown) (no date) (unknown) (unknown) Objective (units unknown) (unknown) (unknown) (no date) (unknown) (unknown) Oxygen Delivery Method Room Air (units unknown) (unknown) (unknown) (no date) (unknown) (unknown) Oxygen Flow Rate 0 (units unknown) (unknown) (unknown) (no date) (unknown) (unknown) PFSH (units unknown) (unknown) (unknown) (no date) (unknown) (unknown) Pacemaker (units unknown) (unknown) (unknown) (no date) (unknown) (unknown) Patient Comments: (units unknown) (unknown) (unknown) (no date) (unknown) (unknown) Patient Disposition: Home Health Service (units unknown) (unknown) (unknown) (no date) (unknown) (unknown) Patient: Yoseph Cardoso MR#: [id number] (units unknown) (unknown) (unknown) (no date) (unknown) (unknown) Per admitting provider, (units unknown) (unknown) (unknown) (no date) (unknown) (unknown) Physician Instructions: Evaluate and Treat (units unknown) (unknown) (unknown) (no date) (unknown) (unknown) Physician Instructions: Evaluate and treat (units unknown) (unknown) (unknown) (no date) (unknown) (unknown) Prescriptions: (units unknown) (unknown) (unknown) (no date) (unknown) (unknown) Primary Care Provider: Lucien Lan (units unknown) (unknown) (unknown) (no date) (unknown) (unknown) Primary care physician: (units unknown) (unknown) (unknown) (no date) (unknown) (unknown) Provider Discharge Comment: You were admitted to the hospital, found to have (units unknown) (unknown) (unknown) (no date) (unknown) (unknown) Provider (units unknown) (unknown) (unknown) (no date) (unknown) (unknown) Provider: Jim Syed D.O. (units unknown) (unknown) (unknown) (no date) (unknown) (unknown) Quality (units unknown) (unknown) (unknown) (no date) (unknown) (unknown) Reason For Exam: BMI22.9-30lb wt loss (units unknown) (unknown) (unknown) (no date) (unknown) (unknown) Reason For Exam: Set up HH RN/PT/OT/CYLINDRICAL MIXER for discharge home (units unknown) (unknown) (unknown) (no date) (unknown) (unknown) Reason for consultation: multiple lesions of liver + spleen (units unknown) (unknown) (unknown) (no date) (unknown) (unknown) Jim Syed DO (units unknown) (unknown) (unknown) (no date) (unknown) (unknown) SaO2/FiO2 Ratio 452 (units unknown) (unknown) (unknown) (no date) (unknown) (unknown) Signed By: (units unknown) (unknown) (unknown) (no date) (unknown) (unknown) Smoking Status: Never smoker (units unknown) (unknown) (unknown) (no date) (unknown) (unknown) Social History (units unknown) (unknown) (unknown) (no date) (unknown) (unknown) Stand Alone Forms: Patient Portal/API, Stroke Signs + Symptoms (units unknown) (unknown) (unknown) (no date) (unknown) (unknown) Surgical History (Updated 06/16/22 @ 21:27 [facility] (units unknown) (unknown) (unknown) (no date) (unknown) (unknown) Upon admit BP 149/78, tachycardic heart rate 154, tachypneic R 29, O2 saturation (units unknown) (unknown) (unknown) (no date) (unknown) (unknown) VTE (units unknown) (unknown) (unknown) (no date) (unknown) (unknown) Visit Report/Discharge Packet (units unknown) (unknown) (unknown) (no date) (unknown) (unknown) Vital Signs (units unknown) (unknown) (unknown) (no date) (unknown) (unknown) [Embedded Image Not Available] (units unknown) (unknown) (unknown) (no date) (unknown) (unknown) a recent 30 lb weight loss, and night sweats with a shuffling gait x6 weeks. He (units unknown) (unknown) (unknown) (no date) (unknown) (unknown) albumin 3.1, CK 53, initial troponin negative, BNP 1430. EKG atrial sensed (units unknown) (unknown) (unknown) (no date) (unknown) (unknown) alcohol intake: current (units unknown) (unknown) (unknown) (no date) (unknown) (unknown) amlodipine 5 mg tablet (units unknown) (unknown) (unknown) (no date) (unknown) (unknown) and place, but a very poor historian, stated that 'he came in today by himself (units unknown) (unknown) (unknown) (no date) (unknown) (unknown) appears is no distress at this time, no apparent jaundice, right upper quadrant (units unknown) (unknown) (unknown) (no date) (unknown) (unknown) because he had black urine this morning'. He did not recall seeing Dr. Gillette, (units unknown) (unknown) (unknown) (no date) (unknown) (unknown) biopsy. (units unknown) (unknown) (unknown) (no date) (unknown) (unknown) cardiology's office due to his significant presentation of cachexia, weakness, (units unknown) (unknown) (unknown) (no date) (unknown) (unknown) demonstrated bibasilar infiltrates versus inflammatory pulmonary opacities mild (units unknown) (unknown) (unknown) (no date) (unknown) (unknown) difficulty, struggles slightly with given directions. Patient has no WBC, but (units unknown) (unknown) (unknown) (no date) (unknown) (unknown) fluticasone propionate [Flovent HFA] 44 mcg/actuation HFA aerosol inhaler (units unknown) (unknown) (unknown) (no date) (unknown) (unknown) for mild sepsis, transaminitis, UTI, encephalopathy. (units unknown) (unknown) (unknown) (no date) (unknown) (unknown) gabapentin 300 mg capsule (units unknown) (unknown) (unknown) (no date) (unknown) (unknown) household members: spouse (units unknown) (unknown) (unknown) (no date) (unknown) (unknown) left shiftneut 8200, initial lactate 4.3, repeat 2.7, procalcitonin 3.27, PT (units unknown) (unknown) (unknown) (no date) (unknown) (unknown) liver biopsy yesterday, follow up with your outside providers for results of the (units unknown) (unknown) (unknown) (no date) (unknown) (unknown) malaise, balance coordination issues, and concerns for neoplastic syndrome with (units unknown) (unknown) (unknown) (no date) (unknown) (unknown) metastatic disease of unknown source at this time, possibly melanoma. You had a (units unknown) (unknown) (unknown) (no date) (unknown) (unknown) obtain HPI, ROS, or medication reconciliation. 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 Gillette (units unknown) (unknown) (unknown) (no date) (unknown) (unknown) pain, or fever. (units unknown) (unknown) (unknown) (no date) (unknown) (unknown) tachycardia with heart rates 111-154, and tachypneic respiratory rate in the (units unknown) (unknown) (unknown) (no date) (unknown) (unknown) to moderate right greater than left pulmonary effusion. SOFA:2 patient admitted (units unknown) (unknown) (unknown) (no date) (unknown) (unknown) unsure if this is the patient's baseline. Due to cognitive impairment unable to (units unknown) (unknown) (unknown) (no date) (unknown) (unknown) ventricular paced rhythm rate 72, abnormal. COVID, influenza a/B/RSV negative. (units unknown) (unknown) (unknown) (no date) (unknown) (unknown) was brought into the ED by his . In ED patient demonstrated escalating (units unknown) (unknown) Result panel 277 (unknown) (no date) (unknown) (unknown) (no value) (units unknown) (unknown) (unknown) (no date) (unknown) (unknown) No cells or organisms seen (units unknown) (unknown) (unknown) (no date) (unknown) (unknown) No cells or organisms seen (units unknown) (unknown) (unknown) (no date) (unknown) (unknown) No growth. (units unknown) (unknown) Result panel 278 (unknown) (no date) (unknown) (unknown) (no value) (units unknown) (unknown) (unknown) (no date) (unknown) (unknown) No cells or organisms seen (units unknown) (unknown) (unknown) (no date) (unknown) (unknown) No cells or organisms seen (units unknown) (unknown) (unknown) (no date) (unknown) (unknown) No growth. (units unknown) (unknown) Result panel 279 (unknown) (no date) (unknown) (unknown) (no value) (units unknown) (unknown) (unknown) (no date) (unknown) (unknown) (moderately low for age), recent wt loss of 30 lbs, pt reporting decrease in PO, (units unknown) (unknown) (unknown) (no date) (unknown) (unknown) (past 8 hours): (units unknown) (unknown) (unknown) (no date) (unknown) (unknown) -CT guided liver biopsy with IR ordered and will be completed on today 06/21, (units unknown) (unknown) (unknown) (no date) (unknown) (unknown) -CT soft tissue neck shows mass lesion behind left 1st rib with pathologic (units unknown) (unknown) (unknown) (no date) (unknown) (unknown) -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 Reeder will order as outpatient at (units unknown) (unknown) (unknown) (no date) (unknown) (unknown) -Patient has a known history of nevoid melanoma status post resection 2 years (units unknown) (unknown) (unknown) (no date) (unknown) (unknown) -spoke with patient's oncology/derm specialist at Dr. Arianna Reeder and updated (units unknown) (unknown) (unknown) (no date) (unknown) (unknown) [id number] (units unknown) (unknown) (unknown) (no date) (unknown) (unknown) 06/16/22 15:35 (units unknown) (unknown) (unknown) (no date) (unknown) (unknown) 06/16/22 20:34 (units unknown) (unknown) (unknown) (no date) (unknown) (unknown) 06/16/22 20:35 (units unknown) (unknown) (unknown) (no date) (unknown) (unknown) 06/16/22 21:05 (units unknown) (unknown) (unknown) (no date) (unknown) (unknown) 06/17/22 01:19 (units unknown) (unknown) (unknown) (no date) (unknown) (unknown) 06/17/22 02:01 (units unknown) (unknown) (unknown) (no date) (unknown) (unknown) 06/20/22 05:35 (units unknown) (unknown) (unknown) (no date) (unknown) (unknown) 06/20/22 13:17 (units unknown) (unknown) (unknown) (no date) (unknown) (unknown) 06/21/22 17:50 (units unknown) (unknown) (unknown) (no date) (unknown) (unknown) 06/22/22 14:25 (units unknown) (unknown) (unknown) (no date) (unknown) (unknown) 1. 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 Sodium 135, BUN 34, glucose 146, calcium 8.1, magnesium (units unknown) (unknown) (unknown) (no date) (unknown) (unknown) 2. Sepsis ruled out (units unknown) (unknown) (unknown) (no date) (unknown) (unknown) 2.6, phosphorus 4.1, bili 2.1, AST 61, ALT 63, alk-phos 428, total protein 5.8, (units unknown) (unknown) (unknown) (no date) (unknown) (unknown) 20s. During admit interview patient is pleasantly confused orientated to self (units unknown) (unknown) (unknown) (no date) (unknown) (unknown) 3. UTI, treated (units unknown) (unknown) (unknown) (no date) (unknown) (unknown) 300 mg PO BID (units unknown) (unknown) (unknown) (no date) (unknown) (unknown) 4. Acute metabolic encephalopathy, improving (units unknown) (unknown) (unknown) (no date) (unknown) (unknown) 44 mcg INHALATION DAILY (units unknown) (unknown) (unknown) (no date) (unknown) (unknown) 5 mg PO BID (units unknown) (unknown) (unknown) (no date) (unknown) (unknown) 5 mg PO DAILY (units unknown) (unknown) (unknown) (no date) (unknown) (unknown) 5. Essential hypertension (units unknown) (unknown) (unknown) (no date) (unknown) (unknown) 6. Atrial fibrillation (units unknown) (unknown) (unknown) (no date) (unknown) (unknown) 7. Moderate protein calorie malnutrition r/t poor appetite x1 month aeb BMI 22.9 (units unknown) (unknown) (unknown) (no date) (unknown) (unknown) 98% on room air. Patient did get up and ambulate to the restroom w/MA without (units unknown) (unknown) (unknown) (no date) (unknown) (unknown) Activity: As tolerated (units unknown) (unknown) (unknown) (no date) (unknown) (unknown) Age/Sex: 86 / M (units unknown) (unknown) (unknown) (no date) (unknown) (unknown) Asthma (units unknown) (unknown) (unknown) (no date) (unknown) (unknown) Atrial fibrillation (units unknown) (unknown) (unknown) (no date) (unknown) (unknown) BP normotensive today.? Continue amlodipine. 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 (units unknown) (unknown) (unknown) (no date) (unknown) (unknown) Comment: weakness (units unknown) (unknown) (unknown) (no date) (unknown) (unknown) Comment: (units unknown) (unknown) (unknown) (no date) (unknown) (unknown) Consult to Dietitian, Adult Routine (units unknown) (unknown) (unknown) (no date) (unknown) (unknown) Consult to Discharge Planning Routine (units unknown) (unknown) (unknown) (no date) (unknown) (unknown) Consult to Home Health Routine (units unknown) (unknown) (unknown) (no date) (unknown) (unknown) Consult to [facility] [place] - Traffic Warehouse Supervisor Routine (units unknown) (unknown) (unknown) (no date) (unknown) (unknown) Consult to Occupational Therapy Evaluate + Treat (units unknown) (unknown) (unknown) (no date) (unknown) (unknown) Consult to Physical Therapy Evaluate + Treat (units unknown) (unknown) (unknown) (no date) (unknown) (unknown) Consult to Physician Routine (units unknown) (unknown) (unknown) (no date) (unknown) (unknown) Consult to Traffic Warehouse Supervisor Routine (units unknown) (unknown) (unknown) (no date) (unknown) (unknown) Consult to Speech Therapy Evaluate + Treat (units unknown) (unknown) (unknown) (no date) (unknown) (unknown) Consulting Provider: Aletha Turner (units unknown) (unknown) (unknown) (no date) (unknown) (unknown) Consults: (units unknown) (unknown) (unknown) (no date) (unknown) (unknown) Continued (units unknown) (unknown) (unknown) (no date) (unknown) (unknown) : 1935 Acct:[id number] (units unknown) (unknown) (unknown) (no date) (unknown) (unknown) Date Patient Seen: 06/22/22 (units unknown) (unknown) (unknown) (no date) (unknown) (unknown) Date of Service: 06/16/22 (units unknown) (unknown) (unknown) (no date) (unknown) (unknown) Date of admission: (units unknown) (unknown) (unknown) (no date) (unknown) (unknown) Deep Vein Thrombosis/Pulmonar y Embolism Present on Admission: No (units unknown) (unknown) (unknown) (no date) (unknown) (unknown) Diagnosed at [facility].? Urine culture (units unknown) (unknown) (unknown) (no date) (unknown) (unknown) Diet/Activity/Treat ments (units unknown) (unknown) (unknown) (no date) (unknown) (unknown) Diet: Diet as Tolerated (units unknown) (unknown) (unknown) (no date) (unknown) (unknown) Discharge Data (units unknown) (unknown) (unknown) (no date) (unknown) (unknown) Discharge Date: 06/22/22 (units unknown) (unknown) (unknown) (no date) (unknown) (unknown) Discharge Diagnosis: (units unknown) (unknown) (unknown) (no date) (unknown) (unknown) Discharge Plan (units unknown) (unknown) (unknown) (no date) (unknown) (unknown) Discharge Providers (units unknown) (unknown) (unknown) (no date) (unknown) (unknown) Discharge Summary (units unknown) (unknown) (unknown) (no date) (unknown) (unknown) Discharge orders + Medications (units unknown) (unknown) (unknown) (no date) (unknown) (unknown) Discharge provider: (units unknown) (unknown) (unknown) (no date) (unknown) (unknown) Yoseph Cardoso is a 86-year-old male with a history of atrial fibrillation, with (units unknown) (unknown) (unknown) (no date) (unknown) (unknown) Lucien Lan MD (units unknown) (unknown) (unknown) (no date) (unknown) (unknown) Eliquis 5 mg tablet (units unknown) (unknown) (unknown) (no date) (unknown) (unknown) Eliquis for biopsy.? He is status post pacemaker. (units unknown) (unknown) (unknown) (no date) (unknown) (unknown) End of Life/Goal Care Dis (units unknown) (unknown) (unknown) (no date) (unknown) (unknown) Essential hypertension (units unknown) (unknown) (unknown) (no date) (unknown) (unknown) Exam (units unknown) (unknown) (unknown) (no date) (unknown) (unknown) Family History (units unknown) (unknown) (unknown) (no date) (unknown) (unknown) Father Diabetes mellitus (units unknown) (unknown) (unknown) (no date) (unknown) (unknown) Follow up/Referrals: (units unknown) (unknown) (unknown) (no date) (unknown) (unknown) Fraction of Inspired Oxygen 21 (units unknown) (unknown) (unknown) (no date) (unknown) (unknown) HCC (units unknown) (unknown) (unknown) (no date) (unknown) (unknown) Has provider been notified: No (units unknown) (unknown) (unknown) (no date) (unknown) (unknown) He did have rapid AFib on the date of admission that has not recurred.? Holding (units unknown) (unknown) (unknown) (no date) (unknown) (unknown) Head CT negative. CXR ?Possible mild right and retrocardiac opacities Chest CT (units unknown) (unknown) (unknown) (no date) (unknown) (unknown) History of Present Illness (units unknown) (unknown) (unknown) (no date) (unknown) (unknown) History of melanoma (units unknown) (unknown) (unknown) (no date) (unknown) (unknown) History of permanent cardiac pacemaker placement (units unknown) (unknown) (unknown) (no date) (unknown) (unknown) Hospital Course (units unknown) (unknown) (unknown) (no date) (unknown) (unknown) Inhale 2 puff using inhaler twice a day (units unknown) (unknown) (unknown) (no date) (unknown) (unknown) Initially on empiric Zosyn therapy.? Blood and urine cultures are negative to (units unknown) (unknown) (unknown) (no date) (unknown) (unknown) [address] [address] (units unknown) (unknown) (unknown) (no date) (unknown) (unknown) Labs (units unknown) (unknown) (unknown) (no date) (unknown) (unknown) Lucien Lan MD [Primary Care Provider] (units unknown) (unknown) (unknown) (no date) (unknown) (unknown) MNA 10 (at risk for malnutrition), diet recall suggesting inadequate (units unknown) (unknown) (unknown) (no date) (unknown) (unknown) HEAVY EQUIPMENT SERVICE TECHNICIAN Consult needed for:: Community Health Res Need (units unknown) (unknown) (unknown) (no date) (unknown) (unknown) Medical History (Updated 06/17/22 @ 00:55 by JOSE Crystal) (units unknown) (unknown) (unknown) (no date) (unknown) (unknown) Mother No problems noted. (units unknown) (unknown) (unknown) (no date) (unknown) (unknown) Narrative: (units unknown) (unknown) (unknown) (no date) (unknown) (unknown) Objective (units unknown) (unknown) (unknown) (no date) (unknown) (unknown) Oxygen Delivery Method Room Air (units unknown) (unknown) (unknown) (no date) (unknown) (unknown) Oxygen Flow Rate 0 (units unknown) (unknown) (unknown) (no date) (unknown) (unknown) PFSH (units unknown) (unknown) (unknown) (no date) (unknown) (unknown) Pacemaker (units unknown) (unknown) (unknown) (no date) (unknown) (unknown) Patient Comments: (units unknown) (unknown) (unknown) (no date) (unknown) (unknown) Patient Disposition: Home Health Service (units unknown) (unknown) (unknown) (no date) (unknown) (unknown) Patient appears to have ongoing mild encephalopathy, but overall is improved and (units unknown) (unknown) (unknown) (no date) (unknown) (unknown) Patient has evidence of severe protein calorie malnutrition.? He has lost 30 lb (units unknown) (unknown) (unknown) (no date) (unknown) (unknown) Patient: Yoseph Cardoso MR#: [id number] (units unknown) (unknown) (unknown) (no date) (unknown) (unknown) Per admitting provider, (units unknown) (unknown) (unknown) (no date) (unknown) (unknown) Physician Instructions: Evaluate and Treat (units unknown) (unknown) (unknown) (no date) (unknown) (unknown) Physician Instructions: Evaluate and treat (units unknown) (unknown) (unknown) (no date) (unknown) (unknown) Prescriptions: (units unknown) (unknown) (unknown) (no date) (unknown) (unknown) Primary Care Provider: Lucien Lan (units unknown) (unknown) (unknown) (no date) (unknown) (unknown) Primary care physician: (units unknown) (unknown) (unknown) (no date) (unknown) (unknown) Provider Discharge Comment: You were admitted to the hospital, found to have (units unknown) (unknown) (unknown) (no date) (unknown) (unknown) Provider (units unknown) (unknown) (unknown) (no date) (unknown) (unknown) Provider: Jim Syed D.O. (units unknown) (unknown) (unknown) (no date) (unknown) (unknown) Quality (units unknown) (unknown) (unknown) (no date) (unknown) (unknown) Reason For Exam: BMI22.9-30lb wt loss (units unknown) (unknown) (unknown) (no date) (unknown) (unknown) Reason For Exam: Set up HH RN/PT/OT/CYLINDRICAL MIXER for discharge home (units unknown) (unknown) (unknown) (no date) (unknown) (unknown) Reason for consultation: multiple lesions of liver + spleen (units unknown) (unknown) (unknown) (no date) (unknown) (unknown) Jim Syed DO (units unknown) (unknown) (unknown) (no date) (unknown) (unknown) SaO2/FiO2 Ratio 452 (units unknown) (unknown) (unknown) (no date) (unknown) (unknown) Signed By: (units unknown) (unknown) (unknown) (no date) (unknown) (unknown) Smoking Status: Never smoker (units unknown) (unknown) (unknown) (no date) (unknown) (unknown) Social History (units unknown) (unknown) (unknown) (no date) (unknown) (unknown) Stand Alone Forms: Patient Portal/API, Stroke Signs + Symptoms (units unknown) (unknown) (unknown) (no date) (unknown) (unknown) Summary (units unknown) (unknown) (unknown) (no date) (unknown) (unknown) Surgical History (Updated 06/16/22 @ 21:27 by Hawa Michael [facility]) (units unknown) (unknown) (unknown) (no date) (unknown) (unknown) Upon admit BP 149/78, tachycardic heart rate 154, tachypneic R 29, O2 saturation (units unknown) (unknown) (unknown) (no date) (unknown) (unknown) VTE (units unknown) (unknown) (unknown) (no date) (unknown) (unknown) Visit Report/Discharge Packet (units unknown) (unknown) (unknown) (no date) (unknown) (unknown) Vital Signs (units unknown) (unknown) (unknown) (no date) (unknown) (unknown) [Embedded Image Not Available] (units unknown) (unknown) (unknown) (no date) (unknown) (unknown) a recent 30 lb weight loss, and night sweats with a shuffling gait x6 weeks. He (units unknown) (unknown) (unknown) (no date) (unknown) (unknown) ago.? He now has multifocal lesions in the liver and spleen on imaging.? Alth (units unknown) (unknown) (unknown) (no date) (unknown) (unknown) albumin 3.1, CK 53, initial troponin negative, BNP 1430. EKG atrial sensed (units unknown) (unknown) (unknown) (no date) (unknown) (unknown) alcohol intake: current (units unknown) (unknown) (unknown) (no date) (unknown) (unknown) amlodipine 5 mg tablet (units unknown) (unknown) (unknown) (no date) (unknown) (unknown) and place, but a very poor historian, stated that 'he came in today by himself (units unknown) (unknown) (unknown) (no date) (unknown) (unknown) appears is no distress at this time, no apparent jaundice, right upper quadrant (units unknown) (unknown) (unknown) (no date) (unknown) (unknown) because he had black urine this morning'. He did not recall seeing Dr. Gillette, (units unknown) (unknown) (unknown) (no date) (unknown) (unknown) biopsy. (units unknown) (unknown) (unknown) (no date) (unknown) (unknown) cardiology's office due to his significant presentation of cachexia, weakness, (units unknown) (unknown) (unknown) (no date) (unknown) (unknown) continuing to improve each day. (units unknown) (unknown) (unknown) (no date) (unknown) (unknown) date.? He is afebrile with a normal white blood cell count. Abx stopped. (units unknown) (unknown) (unknown) (no date) (unknown) (unknown) demonstrated bibasilar infiltrates versus inflammatory pulmonary opacities mild (units unknown) (unknown) (unknown) (no date) (unknown) (unknown) difficulty, struggles slightly with given directions. Patient has no WBC, but (units unknown) (unknown) (unknown) (no date) (unknown) (unknown) fluticasone propionate [Flovent HFA] 44 mcg/actuation HFA aerosol inhaler (units unknown) (unknown) (unknown) (no date) (unknown) (unknown) for mild sepsis, transaminitis, UTI, encephalopathy. (units unknown) (unknown) (unknown) (no date) (unknown) (unknown) fracture of rib (units unknown) (unknown) (unknown) (no date) (unknown) (unknown) gabapentin 300 mg capsule (units unknown) (unknown) (unknown) (no date) (unknown) (unknown) her, has clinic appt with patient on 06/28 (units unknown) (unknown) (unknown) (no date) (unknown) (unknown) here is negative thus far.?Zosyn stopped as above (units unknown) (unknown) (unknown) (no date) (unknown) (unknown) household members: spouse (units unknown) (unknown) (unknown) (no date) (unknown) (unknown) kcal/protein intake. 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 You had a (units unknown) (unknown) (unknown) (no date) (unknown) (unknown) monitor afterward here for complications, possible discharge to SNF tomorrow. (units unknown) (unknown) (unknown) (no date) (unknown) (unknown) obtain HPI, ROS, or medication reconciliation. Patient denies any pain, and (units unknown) (unknown) (unknown) (no date) (unknown) (unknown) ough hepatocellular carcinoma is also in the differential.? (units unknown) (unknown) (unknown) (no date) (unknown) (unknown) over the last few months.?Academic Tutor consulted. 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 Gillette (units unknown) (unknown) (unknown) (no date) (unknown) (unknown) pain, or fever. (units unknown) (unknown) (unknown) (no date) (unknown) (unknown) tachycardia with heart rates 111-154, and tachypneic respiratory rate in the (units unknown) (unknown) (unknown) (no date) (unknown) (unknown) to moderate right greater than left pulmonary effusion. SOFA:2 patient admitted (units unknown) (unknown) (unknown) (no date) (unknown) (unknown) unsure if this is the patient's baseline. Due to cognitive impairment unable to (units unknown) (unknown) (unknown) (no date) (unknown) (unknown) ventricular paced rhythm rate 72, abnormal. COVID, influenza a/B/RSV negative. (units unknown) (unknown) (unknown) (no date) (unknown) (unknown) was brought into the ED by his . In ED patient demonstrated escalating (units unknown) (unknown) Result panel 280 (unknown) (no date) (unknown) (unknown) (no value) (units unknown) (unknown) (unknown) (no date) (unknown) (unknown) (moderately low for age), recent wt loss of 30 lbs, pt reporting decrease in PO, (units unknown) (unknown) (unknown) (no date) (unknown) (unknown) (past 8 hours): (units unknown) (unknown) (unknown) (no date) (unknown) (unknown) [id number] (units unknown) (unknown) (unknown) (no date) (unknown) (unknown) 06/16/22 15:35 (units unknown) (unknown) (unknown) (no date) (unknown) (unknown) 06/16/22 20:34 (units unknown) (unknown) (unknown) (no date) (unknown) (unknown) 06/16/22 20:35 (units unknown) (unknown) (unknown) (no date) (unknown) (unknown) 06/16/22 21:05 (units unknown) (unknown) (unknown) (no date) (unknown) (unknown) 06/17/22 01:19 (units unknown) (unknown) (unknown) (no date) (unknown) (unknown) 06/17/22 02:01 (units unknown) (unknown) (unknown) (no date) (unknown) (unknown) 06/20/22 05:35 (units unknown) (unknown) (unknown) (no date) (unknown) (unknown) 06/20/22 13:17 (units unknown) (unknown) (unknown) (no date) (unknown) (unknown) 06/21/22 17:50 (units unknown) (unknown) (unknown) (no date) (unknown) (unknown) 06/22/22 14:25 (units unknown) (unknown) (unknown) (no date) (unknown) (unknown) 1. 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 Sodium 135, BUN 34, glucose 146, calcium 8.1, magnesium (units unknown) (unknown) (unknown) (no date) (unknown) (unknown) 2. Sepsis ruled out (units unknown) (unknown) (unknown) (no date) (unknown) (unknown) 2.6, phosphorus 4.1, bili 2.1, AST 61, ALT 63, alk-phos 428, total protein 5.8, (units unknown) (unknown) (unknown) (no date) (unknown) (unknown) 20s. During admit interview patient is pleasantly confused orientated to self (units unknown) (unknown) (unknown) (no date) (unknown) (unknown) 3. UTI, treated (units unknown) (unknown) (unknown) (no date) (unknown) (unknown) 300 mg PO BID (units unknown) (unknown) (unknown) (no date) (unknown) (unknown) 4. Acute metabolic encephalopathy, improving (units unknown) (unknown) (unknown) (no date) (unknown) (unknown) 44 mcg INHALATION DAILY (units unknown) (unknown) (unknown) (no date) (unknown) (unknown) 5 mg PO BID (units unknown) (unknown) (unknown) (no date) (unknown) (unknown) 5 mg PO DAILY (units unknown) (unknown) (unknown) (no date) (unknown) (unknown) 5. Essential hypertension (units unknown) (unknown) (unknown) (no date) (unknown) (unknown) 6. Atrial fibrillation, (units unknown) (unknown) (unknown) (no date) (unknown) (unknown) 7. Moderate protein calorie malnutrition r/t poor appetite x1 month aeb BMI 22.9 (units unknown) (unknown) (unknown) (no date) (unknown) (unknown) 98% on room air. Patient did get up and ambulate to the restroom w/MA without (units unknown) (unknown) (unknown) (no date) (unknown) (unknown) ABD: Soft, NT/ND, BT present in all 4 quadrants, no organomegaly or masses (units unknown) (unknown) (unknown) (no date) (unknown) (unknown) Activity: As tolerated (units unknown) (unknown) (unknown) (no date) (unknown) (unknown) Age/Sex: 86 / M (units unknown) (unknown) (unknown) (no date) (unknown) (unknown) Asthma (units unknown) (unknown) (unknown) (no date) (unknown) (unknown) Atrial fibrillation (units unknown) (unknown) (unknown) (no date) (unknown) (unknown) Biopsy results (units unknown) (unknown) (unknown) (no date) (unknown) (unknown) CHEST: Respiratory excursions symmetric, CTAB (units unknown) (unknown) (unknown) (no date) (unknown) (unknown) CV: irregularly irregular, no M/R/G (units unknown) (unknown) (unknown) (no date) (unknown) (unknown) Chief complaint: Pain near pacemaker (units unknown) (unknown) (unknown) (no date) (unknown) (unknown) Chronic anticoagulation (units unknown) (unknown) (unknown) (no date) (unknown) (unknown) Comment: Cachexia, liver biopsy, weakness (units unknown) (unknown) (unknown) (no date) (unknown) (unknown) Comment: 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 (units unknown) (unknown) (unknown) (no date) (unknown) (unknown) Comment: weakness (units unknown) (unknown) (unknown) (no date) (unknown) (unknown) Comment: (units unknown) (unknown) (unknown) (no date) (unknown) (unknown) Consult to Dietitian, Adult Routine (units unknown) (unknown) (unknown) (no date) (unknown) (unknown) Consult to Discharge Planning Routine (units unknown) (unknown) (unknown) (no date) (unknown) (unknown) Consult to Home Health Routine (units unknown) (unknown) (unknown) (no date) (unknown) (unknown) Consult to [facility] [place] [employer] Supervisor Routine (units unknown) (unknown) (unknown) (no date) (unknown) (unknown) Consult to Occupational Therapy Evaluate + Treat (units unknown) (unknown) (unknown) (no date) (unknown) (unknown) Consult to Physical Therapy Evaluate + Treat (units unknown) (unknown) (unknown) (no date) (unknown) (unknown) Consult to Physician Routine (units unknown) (unknown) (unknown) (no date) (unknown) (unknown) Consult to Traffic Warehouse Supervisor Routine (units unknown) (unknown) (unknown) (no date) (unknown) (unknown) Consult to Speech Therapy Evaluate + Treat (units unknown) (unknown) (unknown) (no date) (unknown) (unknown) Consulting Provider: Aletha Turner (units unknown) (unknown) (unknown) (no date) (unknown) (unknown) Consults: (units unknown) (unknown) (unknown) (no date) (unknown) (unknown) Continued (units unknown) (unknown) (unknown) (no date) (unknown) (unknown) : 1935 Acct:[id number] (units unknown) (unknown) (unknown) (no date) (unknown) (unknown) Date Patient Seen: 06/22/22 (units unknown) (unknown) (unknown) (no date) (unknown) (unknown) Date of Service: 06/16/22 (units unknown) (unknown) (unknown) (no date) (unknown) (unknown) Date of admission: (units unknown) (unknown) (unknown) (no date) (unknown) (unknown) Deep Vein Thrombosis/Pulmonar y Embolism Present on Admission: No (units unknown) (unknown) (unknown) (no date) (unknown) (unknown) Diet/Activity/Treat ments (units unknown) (unknown) (unknown) (no date) (unknown) (unknown) Diet: Diet as Tolerated (units unknown) (unknown) (unknown) (no date) (unknown) (unknown) Discharge Data (units unknown) (unknown) (unknown) (no date) (unknown) (unknown) Discharge Date: 06/22/22 (units unknown) (unknown) (unknown) (no date) (unknown) (unknown) Discharge Diagnosis: (units unknown) (unknown) (unknown) (no date) (unknown) (unknown) Discharge Plan (units unknown) (unknown) (unknown) (no date) (unknown) (unknown) Discharge Providers (units unknown) (unknown) (unknown) (no date) (unknown) (unknown) Discharge Summary (units unknown) (unknown) (unknown) (no date) (unknown) (unknown) Discharge orders + Medications (units unknown) (unknown) (unknown) (no date) (unknown) (unknown) Discharge provider: (units unknown) (unknown) (unknown) (no date) (unknown) (unknown) Yoseph Cardoso is a 86-year-old male with a history of atrial fibrillation, with (units unknown) (unknown) (unknown) (no date) (unknown) (unknown) Lucien Lan MD (units unknown) (unknown) (unknown) (no date) (unknown) (unknown) EXTR: warm, well perfused, no C/C/E (units unknown) (unknown) (unknown) (no date) (unknown) (unknown) Eliquis 5 mg tablet (units unknown) (unknown) (unknown) (no date) (unknown) (unknown) End of Life/Goal Care Dis (units unknown) (unknown) (unknown) (no date) (unknown) (unknown) Essential hypertension (units unknown) (unknown) (unknown) (no date) (unknown) (unknown) Exam Narrative: (units unknown) (unknown) (unknown) (no date) (unknown) (unknown) Exam (units unknown) (unknown) (unknown) (no date) (unknown) (unknown) Family History (units unknown) (unknown) (unknown) (no date) (unknown) (unknown) Father Diabetes mellitus (units unknown) (unknown) (unknown) (no date) (unknown) (unknown) Follow up/Referrals: (units unknown) (unknown) (unknown) (no date) (unknown) (unknown) Fraction of Inspired Oxygen 21 (units unknown) (unknown) (unknown) (no date) (unknown) (unknown) GEN:? Pleasant elderly male, alert and oriented x 2, NAD, hard of hearing (units unknown) (unknown) (unknown) (no date) (unknown) (unknown) HCC (units unknown) (unknown) (unknown) (no date) (unknown) (unknown) HEENT:NC, Face symmetric (units unknown) (unknown) (unknown) (no date) (unknown) (unknown) Has provider been notified: No (units unknown) (unknown) (unknown) (no date) (unknown) (unknown) Head CT negative. CXR ?Possible mild right and retrocardiac opacities Chest CT (units unknown) (unknown) (unknown) (no date) (unknown) (unknown) History of Present Illness (units unknown) (unknown) (unknown) (no date) (unknown) (unknown) History of melanoma (units unknown) (unknown) (unknown) (no date) (unknown) (unknown) History of permanent cardiac pacemaker placement (units unknown) (unknown) (unknown) (no date) (unknown) (unknown) Hospital Course (units unknown) (unknown) (unknown) (no date) (unknown) (unknown) Hospital Course: (units unknown) (unknown) (unknown) (no date) (unknown) (unknown) Inhale 2 puff using inhaler twice a day (units unknown) (unknown) (unknown) (no date) (unknown) (unknown) [address] [place] [address] (units unknown) (unknown) (unknown) (no date) (unknown) (unknown) Labs (units unknown) (unknown) (unknown) (no date) (unknown) (unknown) Lucien Lan MD [Primary Care Provider] (units unknown) (unknown) (unknown) (no date) (unknown) (unknown) MNA 10 (at risk for malnutrition), diet recall suggesting inadequate (units unknown) (unknown) (unknown) (no date) (unknown) (unknown) 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 (units unknown) (unknown) (unknown) (no date) (unknown) (unknown) NEURO: Alert and oriented x 2, nonfocal (units unknown) (unknown) (unknown) (no date) (unknown) (unknown) Narrative (units unknown) (unknown) (unknown) (no date) (unknown) (unknown) Narrative: (units unknown) (unknown) (unknown) (no date) (unknown) (unknown) Objective (units unknown) (unknown) (unknown) (no date) (unknown) (unknown) On admission he was noted to have rapid afib that resolved quickly and did not (units unknown) (unknown) (unknown) (no date) (unknown) (unknown) Oxygen Delivery Method Room Air (units unknown) (unknown) (unknown) (no date) (unknown) (unknown) Oxygen Flow Rate 0 (units unknown) (unknown) (unknown) (no date) (unknown) (unknown) PFSH (units unknown) (unknown) (unknown) (no date) (unknown) (unknown) Pacemaker (units unknown) (unknown) (unknown) (no date) (unknown) (unknown) Patient Comments: (units unknown) (unknown) (unknown) (no date) (unknown) (unknown) Patient Disposition: Home Health Service (units unknown) (unknown) (unknown) (no date) (unknown) (unknown) Patient: Yoseph Cardoso MR#: [id number] (units unknown) (unknown) (unknown) (no date) (unknown) (unknown) Per admitting provider, (units unknown) (unknown) (unknown) (no date) (unknown) (unknown) Physician Instructions: Evaluate and Treat (units unknown) (unknown) (unknown) (no date) (unknown) (unknown) Physician Instructions: Evaluate and treat (units unknown) (unknown) (unknown) (no date) (unknown) (unknown) Prescriptions: (units unknown) (unknown) (unknown) (no date) (unknown) (unknown) Primary Care Provider: Lucien Lan (units unknown) (unknown) (unknown) (no date) (unknown) (unknown) Primary care physician: (units unknown) (unknown) (unknown) (no date) (unknown) (unknown) Provider Discharge Comment: You were admitted to the hospital, found to have (units unknown) (unknown) (unknown) (no date) (unknown) (unknown) Provider (units unknown) (unknown) (unknown) (no date) (unknown) (unknown) Provider: Jim Syed D.O. (units unknown) (unknown) (unknown) (no date) (unknown) (unknown) Quality (units unknown) (unknown) (unknown) (no date) (unknown) (unknown) Reason For Exam: BMI22.9-30lb wt loss (units unknown) (unknown) (unknown) (no date) (unknown) (unknown) Reason For Exam: Set up HH RN/PT/OT/CYLINDRICAL MIXER for discharge home (units unknown) (unknown) (unknown) (no date) (unknown) (unknown) Reason for consultation: multiple lesions of liver + spleen (units unknown) (unknown) (unknown) (no date) (unknown) (unknown) Jim Syed DO (units unknown) (unknown) (unknown) (no date) (unknown) (unknown) SKIN: warm and dry, no rash (units unknown) (unknown) (unknown) (no date) (unknown) (unknown) SaO2/FiO2 Ratio 452 (units unknown) (unknown) (unknown) (no date) (unknown) (unknown) Signed By: (units unknown) (unknown) (unknown) (no date) (unknown) (unknown) Smoking Status: Never smoker (units unknown) (unknown) (unknown) (no date) (unknown) (unknown) Social History (units unknown) (unknown) (unknown) (no date) (unknown) (unknown) Stand Alone Forms: Patient Portal/API, Stroke Signs + Symptoms (units unknown) (unknown) (unknown) (no date) (unknown) (unknown) Summary (units unknown) (unknown) (unknown) (no date) (unknown) (unknown) Surgical History (Updated 06/16/22 @ 21:27 by Hawa Michael [facility]) (units unknown) (unknown) (unknown) (no date) (unknown) (unknown) This is an 86 year old male admitted with 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 (units unknown) (unknown) (unknown) (no date) (unknown) (unknown) Time Spent with Patient (units unknown) (unknown) (unknown) (no date) (unknown) (unknown) Time spent: Greater than 30 minutes (units unknown) (unknown) (unknown) (no date) (unknown) (unknown) Upon admit BP 149/78, tachycardic heart rate 154, tachypneic R 29, O2 saturation (units unknown) (unknown) (unknown) (no date) (unknown) (unknown) VTE (units unknown) (unknown) (unknown) (no date) (unknown) (unknown) Visit Report/Discharge Packet (units unknown) (unknown) (unknown) (no date) (unknown) (unknown) Vital Signs (units unknown) (unknown) (unknown) (no date) (unknown) (unknown) [Embedded Image Not Available] (units unknown) (unknown) (unknown) (no date) (unknown) (unknown) a recent 30 lb weight loss, and night sweats with a shuffling gait x6 weeks. He (units unknown) (unknown) (unknown) (no date) (unknown) (unknown) albumin 3.1, CK 53, initial troponin negative, BNP 1430. EKG atrial sensed (units unknown) (unknown) (unknown) (no date) (unknown) (unknown) alcohol intake: current (units unknown) (unknown) (unknown) (no date) (unknown) (unknown) amlodipine 5 mg tablet (units unknown) (unknown) (unknown) (no date) (unknown) (unknown) and place, but a very poor historian, stated that 'he came in today by himself (units unknown) (unknown) (unknown) (no date) (unknown) (unknown) appears is no distress at this time, no apparent jaundice, right upper quadrant (units unknown) (unknown) (unknown) (no date) (unknown) (unknown) because he had black urine this morning'. He did not recall seeing Dr. Gillette, (units unknown) (unknown) (unknown) (no date) (unknown) (unknown) biopsy. (units unknown) (unknown) (unknown) (no date) (unknown) (unknown) cardiology's office due to his significant presentation of cachexia, weakness, (units unknown) (unknown) (unknown) (no date) (unknown) (unknown) complexity of his case and increased the duration of his stay. He continued to (units unknown) (unknown) (unknown) (no date) (unknown) (unknown) demonstrated bibasilar infiltrates versus inflammatory pulmonary opacities mild (units unknown) (unknown) (unknown) (no date) (unknown) (unknown) difficulty, struggles slightly with given directions. Patient has no WBC, but (units unknown) (unknown) (unknown) (no date) (unknown) (unknown) disease. He had multifocal lesions on his liver and spleen. He was also found to (units unknown) (unknown) (unknown) (no date) (unknown) (unknown) fluticasone propionate [Flovent HFA] 44 mcg/actuation HFA aerosol inhaler (units unknown) (unknown) (unknown) (no date) (unknown) (unknown) for mild sepsis, transaminitis, UTI, encephalopathy. (units unknown) (unknown) (unknown) (no date) (unknown) (unknown) gabapentin 300 mg capsule (units unknown) (unknown) (unknown) (no date) (unknown) (unknown) have a mass behind his L 1st rib with pathologic fracture. Initially he was (units unknown) (unknown) (unknown) (no date) (unknown) (unknown) household members: spouse (units unknown) (unknown) (unknown) (no date) (unknown) (unknown) infectious workup, though he had recently been treated at an outside hospital. (units unknown) (unknown) (unknown) (no date) (unknown) (unknown) kcal/protein intake. 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 You had a (units unknown) (unknown) (unknown) (no date) (unknown) (unknown) obtain HPI, ROS, or medication reconciliation. 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 Gillette (units unknown) (unknown) (unknown) (no date) (unknown) (unknown) pain, or fever. (units unknown) (unknown) (unknown) (no date) (unknown) (unknown) recur over the course of his stay. Ultimately the patient underly liver biopsy (units unknown) (unknown) (unknown) (no date) (unknown) (unknown) started on zosyn as well but antibiotics were discontinued after negative (units unknown) (unknown) (unknown) (no date) (unknown) (unknown) tachycardia with heart rates 111-154, and tachypneic respiratory rate in the (units unknown) (unknown) (unknown) (no date) (unknown) (unknown) to moderate right greater than left pulmonary effusion. SOFA:2 patient admitted (units unknown) (unknown) (unknown) (no date) (unknown) (unknown) unsure if this is the patient's baseline. Due to cognitive impairment unable to (units unknown) (unknown) (unknown) (no date) (unknown) (unknown) ventricular paced rhythm rate 72, abnormal. COVID, influenza a/B/RSV negative. (units unknown) (unknown) (unknown) (no date) (unknown) (unknown) was brought into the ED by his . In ED patient demonstrated escalating (units unknown) (unknown) (unknown) (no date) (unknown) (unknown) with IR with biopsy results pending at this time. His malnutrition increased (units unknown) (unknown) (unknown) (no date) (unknown) (unknown) work with physical therapy, was ultimately discharged home with home health. (units unknown) (unknown) Result panel 281 (unknown) (no date) (unknown) (unknown) (no value) (units unknown) (unknown) (unknown) (no date) (unknown) (unknown) (moderately low for age), recent wt loss of 30 lbs, pt reporting decrease in PO, (units unknown) (unknown) (unknown) (no date) (unknown) (unknown) (past 8 hours): (units unknown) (unknown) (unknown) (no date) (unknown) (unknown) [id number] (units unknown) (unknown) (unknown) (no date) (unknown) (unknown) 06/16/22 15:35 (units unknown) (unknown) (unknown) (no date) (unknown) (unknown) 06/16/22 20:34 (units unknown) (unknown) (unknown) (no date) (unknown) (unknown) 06/16/22 20:35 (units unknown) (unknown) (unknown) (no date) (unknown) (unknown) 06/16/22 21:05 (units unknown) (unknown) (unknown) (no date) (unknown) (unknown) 06/17/22 01:19 (units unknown) (unknown) (unknown) (no date) (unknown) (unknown) 06/17/22 02:01 (units unknown) (unknown) (unknown) (no date) (unknown) (unknown) 06/20/22 05:35 (units unknown) (unknown) (unknown) (no date) (unknown) (unknown) 06/20/22 13:17 (units unknown) (unknown) (unknown) (no date) (unknown) (unknown) 06/21/22 17:50 (units unknown) (unknown) (unknown) (no date) (unknown) (unknown) 06/22/22 14:25 (units unknown) (unknown) (unknown) (no date) (unknown) (unknown) 06/23/22 2203 (units unknown) (unknown) (unknown) (no date) (unknown) (unknown) 1. Metastatic melanoma (units unknown) (unknown) (unknown) (no date) (unknown) (unknown) 17.6, INR 1.5, PTT 38. Sodium 135, BUN 34, glucose 146, calcium 8.1, magnesium (units unknown) (unknown) (unknown) (no date) (unknown) (unknown) 2. Sepsis ruled out (units unknown) (unknown) (unknown) (no date) (unknown) (unknown) 2.6, phosphorus 4.1, bili 2.1, AST 61, ALT 63, alk-phos 428, total protein 5.8, (units unknown) (unknown) (unknown) (no date) (unknown) (unknown) 20s. During admit interview patient is pleasantly confused orientated to self (units unknown) (unknown) (unknown) (no date) (unknown) (unknown) 3. UTI, treated (units unknown) (unknown) (unknown) (no date) (unknown) (unknown) 300 mg PO BID (units unknown) (unknown) (unknown) (no date) (unknown) (unknown) 4. Acute metabolic encephalopathy, improving (units unknown) (unknown) (unknown) (no date) (unknown) (unknown) 44 mcg INHALATION DAILY (units unknown) (unknown) (unknown) (no date) (unknown) (unknown) 5 mg PO BID (units unknown) (unknown) (unknown) (no date) (unknown) (unknown) 5 mg PO DAILY (units unknown) (unknown) (unknown) (no date) (unknown) (unknown) 5. Essential hypertension (units unknown) (unknown) (unknown) (no date) (unknown) (unknown) 6. Atrial fibrillation, (units unknown) (unknown) (unknown) (no date) (unknown) (unknown) 7. Moderate protein calorie malnutrition r/t poor appetite x1 month aeb BMI 22.9 (units unknown) (unknown) (unknown) (no date) (unknown) (unknown) 98% on room air. Patient did get up and ambulate to the restroom w/MA without (units unknown) (unknown) (unknown) (no date) (unknown) (unknown) ABD: Soft, NT/ND, BT present in all 4 quadrants, no organomegaly or masses (units unknown) (unknown) (unknown) (no date) (unknown) (unknown) Activity: As tolerated (units unknown) (unknown) (unknown) (no date) (unknown) (unknown) Age/Sex: 86 / M (units unknown) (unknown) (unknown) (no date) (unknown) (unknown) Asthma (units unknown) (unknown) (unknown) (no date) (unknown) (unknown) Atrial fibrillation (units unknown) (unknown) (unknown) (no date) (unknown) (unknown) Biopsy results have returned as of the writing of this summary with malignant (units unknown) (unknown) (unknown) (no date) (unknown) (unknown) CHEST: Respiratory excursions symmetric, CTAB (units unknown) (unknown) (unknown) (no date) (unknown) (unknown) CV: irregularly irregular, no M/R/G (units unknown) (unknown) (unknown) (no date) (unknown) (unknown) Chief complaint: Pain near pacemaker (units unknown) (unknown) (unknown) (no date) (unknown) (unknown) Chronic anticoagulation (units unknown) (unknown) (unknown) (no date) (unknown) (unknown) Comment: Cachexia, liver biopsy, weakness (units unknown) (unknown) (unknown) (no date) (unknown) (unknown) Comment: 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 (units unknown) (unknown) (unknown) (no date) (unknown) (unknown) Comment: weakness (units unknown) (unknown) (unknown) (no date) (unknown) (unknown) Comment: (units unknown) (unknown) (unknown) (no date) (unknown) (unknown) Consult to Dietitian, Adult Routine (units unknown) (unknown) (unknown) (no date) (unknown) (unknown) Consult to Discharge Planning Routine (units unknown) (unknown) (unknown) (no date) (unknown) (unknown) Consult to Home Health Routine (units unknown) (unknown) (unknown) (no date) (unknown) (unknown) Consult to [facility] [place] Traffic Warehouse Supervisor Routine (units unknown) (unknown) (unknown) (no date) (unknown) (unknown) Consult to Occupational Therapy Evaluate + Treat (units unknown) (unknown) (unknown) (no date) (unknown) (unknown) Consult to Physical Therapy Evaluate + Treat (units unknown) (unknown) (unknown) (no date) (unknown) (unknown) Consult to Physician Routine (units unknown) (unknown) (unknown) (no date) (unknown) (unknown) Consult to Traffic Warehouse Supervisor Routine (units unknown) (unknown) (unknown) (no date) (unknown) (unknown) Consult to Speech Therapy Evaluate + Treat (units unknown) (unknown) (unknown) (no date) (unknown) (unknown) Consulting Provider: Aletha Turner (units unknown) (unknown) (unknown) (no date) (unknown) (unknown) Consults: (units unknown) (unknown) (unknown) (no date) (unknown) (unknown) Continued (units unknown) (unknown) (unknown) (no date) (unknown) (unknown) : 1935 Acct:[id number] (units unknown) (unknown) (unknown) (no date) (unknown) (unknown) Date Patient Seen: 06/22/22 (units unknown) (unknown) (unknown) (no date) (unknown) (unknown) Date of Service: 06/16/22 (units unknown) (unknown) (unknown) (no date) (unknown) (unknown) Date of admission: (units unknown) (unknown) (unknown) (no date) (unknown) (unknown) Deep Vein Thrombosis/Pulmonar y Embolism Present on Admission: No (units unknown) (unknown) (unknown) (no date) (unknown) (unknown) Diet/Activity/Treat ments (units unknown) (unknown) (unknown) (no date) (unknown) (unknown) Diet: Diet as Tolerated (units unknown) (unknown) (unknown) (no date) (unknown) (unknown) Discharge Data (units unknown) (unknown) (unknown) (no date) (unknown) (unknown) Discharge Date: 06/22/22 (units unknown) (unknown) (unknown) (no date) (unknown) (unknown) Discharge Diagnosis: (units unknown) (unknown) (unknown) (no date) (unknown) (unknown) Discharge Plan (units unknown) (unknown) (unknown) (no date) (unknown) (unknown) Discharge Providers (units unknown) (unknown) (unknown) (no date) (unknown) (unknown) Discharge Summary (units unknown) (unknown) (unknown) (no date) (unknown) (unknown) Discharge orders + Medications (units unknown) (unknown) (unknown) (no date) (unknown) (unknown) Discharge provider: (units unknown) (unknown) (unknown) (no date) (unknown) (unknown) Yoseph Cardoso is a 86-year-old male with a history of atrial fibrillation, with (units unknown) (unknown) (unknown) (no date) (unknown) (unknown) Lucien Lan MD (units unknown) (unknown) (unknown) (no date) (unknown) (unknown) EXTR: warm, well perfused, no C/C/E (units unknown) (unknown) (unknown) (no date) (unknown) (unknown) Eliquis 5 mg tablet (units unknown) (unknown) (unknown) (no date) (unknown) (unknown) End of Life/Goal Care Dis (units unknown) (unknown) (unknown) (no date) (unknown) (unknown) Essential hypertension (units unknown) (unknown) (unknown) (no date) (unknown) (unknown) Exam Narrative: (units unknown) (unknown) (unknown) (no date) (unknown) (unknown) Exam (units unknown) (unknown) (unknown) (no date) (unknown) (unknown) Family History (units unknown) (unknown) (unknown) (no date) (unknown) (unknown) Father Diabetes mellitus (units unknown) (unknown) (unknown) (no date) (unknown) (unknown) Follow up/Referrals: (units unknown) (unknown) (unknown) (no date) (unknown) (unknown) Fraction of Inspired Oxygen 21 (units unknown) (unknown) (unknown) (no date) (unknown) (unknown) GEN:? Pleasant elderly male, alert and oriented x 2, NAD, hard of hearing (units unknown) (unknown) (unknown) (no date) (unknown) (unknown) HEENT:NC, Face symmetric (units unknown) (unknown) (unknown) (no date) (unknown) (unknown) Has provider been notified: No (units unknown) (unknown) (unknown) (no date) (unknown) (unknown) Head CT negative. CXR ?Possible mild right and retrocardiac opacities Chest CT (units unknown) (unknown) (unknown) (no date) (unknown) (unknown) History of Present Illness (units unknown) (unknown) (unknown) (no date) (unknown) (unknown) History of melanoma (units unknown) (unknown) (unknown) (no date) (unknown) (unknown) History of permanent cardiac pacemaker placement (units unknown) (unknown) (unknown) (no date) (unknown) (unknown) Hospital Course (units unknown) (unknown) (unknown) (no date) (unknown) (unknown) Hospital Course: (units unknown) (unknown) (unknown) (no date) (unknown) (unknown) Inhale 2 puff using inhaler twice a day (units unknown) (unknown) (unknown) (no date) (unknown) (unknown) [address] [address] (units unknown) (unknown) (unknown) (no date) (unknown) (unknown) Labs (units unknown) (unknown) (unknown) (no date) (unknown) (unknown) Lucien Lan MD [Primary Care Provider] (units unknown) (unknown) (unknown) (no date) (unknown) (unknown) MNA 10 (at risk for malnutrition), diet recall suggesting inadequate (units unknown) (unknown) (unknown) (no date) (unknown) (unknown) HEAVY EQUIPMENT SERVICE TECHNICIAN Consult needed for:: Community Health Res Need (units unknown) (unknown) (unknown) (no date) (unknown) (unknown) Medical History (Updated 06/17/22 @ 00:55 by JOSE Crystal) (units unknown) (unknown) (unknown) (no date) (unknown) (unknown) Mother No problems noted. (units unknown) (unknown) (unknown) (no date) (unknown) (unknown) NEURO: Alert and oriented x 2, nonfocal (units unknown) (unknown) (unknown) (no date) (unknown) (unknown) Narrative (units unknown) (unknown) (unknown) (no date) (unknown) (unknown) Narrative: (units unknown) (unknown) (unknown) (no date) (unknown) (unknown) Objective (units unknown) (unknown) (unknown) (no date) (unknown) (unknown) On admission he was noted to have rapid afib that resolved quickly and did not (units unknown) (unknown) (unknown) (no date) (unknown) (unknown) Oxygen Delivery Method Room Air (units unknown) (unknown) (unknown) (no date) (unknown) (unknown) Oxygen Flow Rate 0 (units unknown) (unknown) (unknown) (no date) (unknown) (unknown) PFSH (units unknown) (unknown) (unknown) (no date) (unknown) (unknown) Pacemaker (units unknown) (unknown) (unknown) (no date) (unknown) (unknown) Patient Comments: (units unknown) (unknown) (unknown) (no date) (unknown) (unknown) Patient Disposition: Home Health Service (units unknown) (unknown) (unknown) (no date) (unknown) (unknown) Patient: Yoseph Cardoso MR#: [id number] (units unknown) (unknown) (unknown) (no date) (unknown) (unknown) Per admitting provider, (units unknown) (unknown) (unknown) (no date) (unknown) (unknown) Physician Instructions: Evaluate and Treat (units unknown) (unknown) (unknown) (no date) (unknown) (unknown) Physician Instructions: Evaluate and treat (units unknown) (unknown) (unknown) (no date) (unknown) (unknown) Prescriptions: (units unknown) (unknown) (unknown) (no date) (unknown) (unknown) Primary Care Provider: Lucien Lan (units unknown) (unknown) (unknown) (no date) (unknown) (unknown) Primary care physician: (units unknown) (unknown) (unknown) (no date) (unknown) (unknown) Provider Discharge Comment: You were admitted to the hospital, found to have (units unknown) (unknown) (unknown) (no date) (unknown) (unknown) Provider (units unknown) (unknown) (unknown) (no date) (unknown) (unknown) Provider: Jim Syed D.O. (units unknown) (unknown) (unknown) (no date) (unknown) (unknown) Quality (units unknown) (unknown) (unknown) (no date) (unknown) (unknown) Reason For Exam: BMI22.9-30lb wt loss (units unknown) (unknown) (unknown) (no date) (unknown) (unknown) Reason For Exam: Set up HH RN/PT/OT/CYLINDRICAL MIXER for discharge home (units unknown) (unknown) (unknown) (no date) (unknown) (unknown) Reason for consultation: multiple lesions of liver + spleen (units unknown) (unknown) (unknown) (no date) (unknown) (unknown) Jim Syed DO (units unknown) (unknown) (unknown) (no date) (unknown) (unknown) SKIN: warm and dry, no rash (units unknown) (unknown) (unknown) (no date) (unknown) (unknown) SaO2/FiO2 Ratio 452 (units unknown) (unknown) (unknown) (no date) (unknown) (unknown) Signed By:<Electronically signed by Jim Syed D.O.> (units unknown) (unknown) (unknown) (no date) (unknown) (unknown) Smoking Status: Never smoker (units unknown) (unknown) (unknown) (no date) (unknown) (unknown) Social History (units unknown) (unknown) (unknown) (no date) (unknown) (unknown) Stand Alone Forms: Patient Portal/API, Stroke Signs + Symptoms (units unknown) (unknown) (unknown) (no date) (unknown) (unknown) Summary (units unknown) (unknown) (unknown) (no date) (unknown) (unknown) Surgical History (Updated 06/16/22 @ 21:27 by Hawa Michael [facility]) (units unknown) (unknown) (unknown) (no date) (unknown) (unknown) This is an 86 year old male admitted with 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 (units unknown) (unknown) (unknown) (no date) (unknown) (unknown) Time Spent with Patient (units unknown) (unknown) (unknown) (no date) (unknown) (unknown) Time spent: Greater than 30 minutes (units unknown) (unknown) (unknown) (no date) (unknown) (unknown) Upon admit BP 149/78, tachycardic heart rate 154, tachypneic R 29, O2 saturation (units unknown) (unknown) (unknown) (no date) (unknown) (unknown) VTE (units unknown) (unknown) (unknown) (no date) (unknown) (unknown) Visit Report/Discharge Packet (units unknown) (unknown) (unknown) (no date) (unknown) (unknown) Vital Signs (units unknown) (unknown) (unknown) (no date) (unknown) (unknown) [Embedded Image Not Available] (units unknown) (unknown) (unknown) (no date) (unknown) (unknown) a recent 30 lb weight loss, and night sweats with a shuffling gait x6 weeks. He (units unknown) (unknown) (unknown) (no date) (unknown) (unknown) albumin 3.1, CK 53, initial troponin negative, BNP 1430. EKG atrial sensed (units unknown) (unknown) (unknown) (no date) (unknown) (unknown) alcohol intake: current (units unknown) (unknown) (unknown) (no date) (unknown) (unknown) amlodipine 5 mg tablet (units unknown) (unknown) (unknown) (no date) (unknown) (unknown) and place, but a very poor historian, stated that 'he came in today by himself (units unknown) (unknown) (unknown) (no date) (unknown) (unknown) appears is no distress at this time, no apparent jaundice, right upper quadrant (units unknown) (unknown) (unknown) (no date) (unknown) (unknown) because he had black urine this morning'. He did not recall seeing Dr. Gillette, (units unknown) (unknown) (unknown) (no date) (unknown) (unknown) biopsy. (units unknown) (unknown) (unknown) (no date) (unknown) (unknown) cardiology's office due to his significant presentation of cachexia, weakness, (units unknown) (unknown) (unknown) (no date) (unknown) (unknown) complexity of his case and increased the duration of his stay. He continued to (units unknown) (unknown) (unknown) (no date) (unknown) (unknown) demonstrated bibasilar infiltrates versus inflammatory pulmonary opacities mild (units unknown) (unknown) (unknown) (no date) (unknown) (unknown) difficulty, struggles slightly with given directions. Patient has no WBC, but (units unknown) (unknown) (unknown) (no date) (unknown) (unknown) disease. He had multifocal lesions on his liver and spleen. He was also found to (units unknown) (unknown) (unknown) (no date) (unknown) (unknown) fluticasone propionate [Flovent HFA] 44 mcg/actuation HFA aerosol inhaler (units unknown) (unknown) (unknown) (no date) (unknown) (unknown) for mild sepsis, transaminitis, UTI, encephalopathy. (units unknown) (unknown) (unknown) (no date) (unknown) (unknown) gabapentin 300 mg capsule (units unknown) (unknown) (unknown) (no date) (unknown) (unknown) have a mass behind his L 1st rib with pathologic fracture. Initially he was (units unknown) (unknown) (unknown) (no date) (unknown) (unknown) household members: spouse (units unknown) (unknown) (unknown) (no date) (unknown) (unknown) infectious workup, though he had recently been treated at an outside hospital. (units unknown) (unknown) (unknown) (no date) (unknown) (unknown) kcal/protein intake. (units unknown) (unknown) (unknown) (no date) (unknown) (unknown) left shiftneut 8200, initial lactate 4.3, repeat 2.7, procalcitonin 3.27, PT (units unknown) (unknown) (unknown) (no date) (unknown) (unknown) liver biopsy yesterday, follow up with your outside providers for results of the (units unknown) (unknown) (unknown) (no date) (unknown) (unknown) malaise, balance coordination issues, and concerns for neoplastic syndrome with (units unknown) (unknown) (unknown) (no date) (unknown) (unknown) melanoma. 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 You had a (units unknown) (unknown) (unknown) (no date) (unknown) (unknown) obtain HPI, ROS, or medication reconciliation. 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 Gillette (units unknown) (unknown) (unknown) (no date) (unknown) (unknown) pain, or fever. (units unknown) (unknown) (unknown) (no date) (unknown) (unknown) recur over the course of his stay. Ultimately the patient underly liver biopsy (units unknown) (unknown) (unknown) (no date) (unknown) (unknown) started on zosyn as well but antibiotics were discontinued after negative (units unknown) (unknown) (unknown) (no date) (unknown) (unknown) tachycardia with heart rates 111-154, and tachypneic respiratory rate in the (units unknown) (unknown) (unknown) (no date) (unknown) (unknown) to moderate right greater than left pulmonary effusion. SOFA:2 patient admitted (units unknown) (unknown) (unknown) (no date) (unknown) (unknown) unsure if this is the patient's baseline. Due to cognitive impairment unable to (units unknown) (unknown) (unknown) (no date) (unknown) (unknown) ventricular paced rhythm rate 72, abnormal. COVID, influenza a/B/RSV negative. (units unknown) (unknown) (unknown) (no date) (unknown) (unknown) was brought into the ED by his . In ED patient demonstrated escalating (units unknown) (unknown) (unknown) (no date) (unknown) (unknown) with IR with biopsy results pending at this time. His malnutrition increased (units unknown) (unknown) (unknown) (no date) (unknown) (unknown) work with physical therapy, was ultimately discharged home with home health. (units unknown) (unknown) Result panel 282 (unknown) (no date) (unknown) (unknown) (no value) (units unknown) (unknown) (unknown) (no date) (unknown) (unknown) No cells or organisms seen (units unknown) (unknown) (unknown) (no date) (unknown) (unknown) No cells or organisms seen (units unknown) (unknown) (unknown) (no date) (unknown) (unknown) No growth. (units unknown) (unknown) Result panel 283 (unknown) (no date) (unknown) (unknown) (no value) (units unknown) (unknown) (unknown) (no date) (unknown) (unknown) No cells or organisms seen (units unknown) (unknown) (unknown) (no date) (unknown) (unknown) No cells or organisms seen (units unknown) (unknown) (unknown) (no date) (unknown) (unknown) No growth. (units unknown) (unknown) Result panel 284 (unknown) (no date) (unknown) (unknown) (no value) (units unknown) (unknown) (unknown) (no date) (unknown) (unknown) No cells or organisms seen (units unknown) (unknown) (unknown) (no date) (unknown) (unknown) No cells or organisms seen (units unknown) (unknown) (unknown) (no date) (unknown) (unknown) No growth. (units unknown) (unknown) Result panel 285 (unknown) (no date) (unknown) (unknown) (no value) (units unknown) (unknown) (unknown) (no date) (unknown) (unknown) No cells or organisms seen (units unknown) (unknown) (unknown) (no date) (unknown) (unknown) No cells or organisms seen (units unknown) (unknown) (unknown) (no date) (unknown) (unknown) No growth. (units unknown) (unknown) Social History date description facility 2022-06-16 00:00 Never smoked tobacco (finding) [facility] 2022-06-16 00:00 Smoker (finding) [facility] Vital Signs date measurement value units [...]
--- NOTE | 2022-09-08 02:16 | CT Report ---
PROCEDURE: HEAD WO INDICATIONS: Head trauma, mod-severe TECHNIQUE: Noncontrast 4.5 mm thick angled axial sections acquired from the foramen magnum to the vertex. For r adiation dose reduction, the following was used: automated exposure control, adjustment of mA and/or kV according to patient size. COMPARISON: CT head 07/16/2022. FINDINGS: Image quality: Excellent. CSF spaces: There is moderate cerebral volume loss with prominence of the ventricles and sulci. Basa l cisterns are patent. No extra-axial fluid collections. Brain: No intracranial hemorrhage, mass, or mass effect. Amaro-white matter interface is preserved. T here are subcortical and periventricular white matter hypodensities consistent with moderate chronic small vessel ischemic changes. Skull and face: Calvarium and visualized facial bones are intact, without suspicious lesions. Sinuses: Visualized sinuses and mastoids are clear. IMPRESSION: 1. No acute intracranial abnormality. 2. Moderate cerebral volume loss and chronic white matter small vessel ischemic changes. Reviewed by: Donovan Roblero MD on 09/08/2022 2:14 AM PDT Approved by: Donovan Roblero MD on 09/08/2022 2:14 AM PDT Station ID: [id number]
--- NOTE | 2022-09-08 02:17 | CT Report ---
PROCEDURE: CERVICAL SPINE WO INDICATIONS: Neck trauma, midline tenderness TECHNIQUE: Noncontrast 3 mm thick sections acquired from the skull base to the T4 level. Sagittal and coronal r eformats were then constructed. For radiation dose reduction, the following was used: automated exp osure control, adjustment of mA and/or kV according to patient size. COMPARISON: None. FINDINGS: Image quality: Excellent. Bones: No fractures or subluxation. There is minimal retrolisthesis at C4-C5, C5-C6, and C6-C7. Ther e is multilevel degenerative disc disease and facet joint arthropathy. Visualized superior ribs are i ntact. Soft tissues: Prevertebral soft tissues are normal in thickness. No paravertebral hematomas. No ap ical pneumothoraces. IMPRESSION: 1. No fracture or subluxation. Reviewed by: Donovan Hadley MD on 09/08/2022 2:16 AM PDT Approved by: Donovan Hadley MD on 09/08/2022 2:16 AM PDT Station ID: [id number]
[2022-09-08 12:13] VITALS: BP 131/53
--- NOTE | 2022-09-08 12:48 | ED Physician Documentation ---
ED Addendum - Addendum Addendum: 09/08/22 12:46 The patient is handed off to me at change of shift. He is been doing okay here this morning without any particular complaints. His arrived in his bedside. There was concern for the ability to continue caring for him at the level of his need at home. The was requesting an information known social work consult regarding possible rehab or residential facility. Social work [facility] evaluated the situation and talked with them. They were working on placement at [facility] in [place]. However there was difficulty with that and the patient is receiving chemotherapy at home. Apparently rules at the nursing facility prohibited the patient using his home medication and that it is too expensive for them to provide for him. This apparent Catch-22 is limiting placement. The opts for taking the patient back home. They do have home health providers helping. Disposition: The patient will be discharged home in stable condition. Diagnoses: 1. General weakness 2. metastatic skin cnacer with Chemotherapy 3. Inability to walk due to weakness. 4. fall 5. anticoagulant intermediate accountant use 09/08/22 12:49
== END 2022-09-08 15:52 | disposition home or self-care (01) ==
LOC: EDUNIT# → ED 01:20
DX: S09.90XA Unspecified injury of head, initial encounter (principal); W18.30XA Fall on same level, unspecified, initial encounter; R53.1 Weakness; C44.90 Unspecified malignant neoplasm of skin, unspecified; C79.9 Secondary malignant neoplasm of unspecified site; R26.2 Difficulty in walking, not elsewhere classified; I10 Essential (primary) hypertension; E78.00 Pure hypercholesterolemia, unspecified; I48.91 Unspecified atrial fibrillation; F03.90 Unspecified dementia, unspecified severity, without behavioral disturbance, psychotic disturbance, mood disturbance, and anxiety; Z95.0 Presence of cardiac pacemaker; Z79.01 Long term (current) use 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s; Z79.899 Other long term (current) drug therapy; Z66 Do not resuscitate
CPT/HCPCS: 99284

== ENCOUNTER 2022-09-08 15:32 | Outpatient (CLI) | payer MEDICARE, OTHER | END 2022-09-08 15:33 | disposition home or self-care (01) | LOC: EMS 15:32 | PROVIDERS: ATTEND Emergency Medicine | DX: R41.0 Disorientation, unspecified (principal); R45.1 Restlessness and agitation; F03.90 Unspecified dementia, unspecified severity, without behavioral disturbance, psychotic disturbance, mood disturbance, and anxiety | CPT/HCPCS: A0425; A0428 ==

== ENCOUNTER 2022-09-13 18:13 | Emergency (ER) | payer MEDICARE, OTHER ==
[2022-09-13 18:29] VITALS: BP 122/59
--- OUTSIDE RECORDS SUMMARY | 2022-09-13 18:42 | EXTERNAL MEDICAL SUMMARY RPT | Continuity of Care Document ---
Author Name Unknown Address [address] [place] [address] Phone Organization [facility] Address [address] [place] [address] Phone Care Team Providers Care Demolition Expert Name Role Phone Unavailable Unavailable Unavailable Lucien Lan Unavailable Unavailable Allergies and Intolerances date description facility type (no date) pneumococcal 7-valent conjugate to [facility] (unknown) Medications date description facility 2022-06-16 00:00 Apixaban [facility] 2022-06-16 00:00 Amlodipine [facility] 2022-06-16 00:00 Gabapentin [facility] Problems date description facility 2022-06-16 00:00 Sepsis [facility] 2022-06-16 00:00 Atrial fibrillation [facility] 2022-06-16 00:00 Urinary tract infection [facility] 2022-06-16 00:00 Confusion [facility] 2022-06-16 00:00 Elevated transaminase measureme nt [facility] 2022-06-16 00:00 Body mass index (BMI) of 22.0 t o 22.9 in adult [facility] 2022-06-16 00:00 Presence of cardiac pacemaker I [facility] 2022-06-17 00:00 Primary hypertension [facility] 2022-06-17 00:00 Asthma [facility] 2022-06-17 00:00 Impaired cognition [facility] 2022-06-17 00:00 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 [facility] 2022-06-19 13:52 Sepsis, unspecified organism [facility] 2022-06-22 08:33 Sepsis, unspecified organism [facility] 2022-06-22 11:44 Sepsis, unspecified organism [facility] 2022-06-22 14:32 Sepsis, unspecified organism [facility] 2022-06-27 14:23 Sepsis, unspecified organism [facility] 2022-06-27 14:43 Sepsis, unspecified organism [facility] Procedures date description facility 2022-06-16 00:00 Computed tomography of head or brain without contrast [facility] 2022-06-21 00:00 Gram Stain [facility] 2022-06-20 00:00 CT soft tissue neck [facility] 2022-06-16 00:00 [facility]:00 CT abdomen pelvis w [facility] 2022-06-17 00:00 US Abdomen limited [facility] 2022-06-16 00:00 CT chest [facility] 2022-06-21 00:00 CT biopsy liver [facility] Results/Labs test date author facility value unit interpretation Result panel 1 (unknown) (no date) (unknown) [facility] (no value) (units unknown) (unknown) Result panel 2 (unknown) (no date) (unknown) [facility] (no value) (units unknown) (unknown) Result panel 3 (unknown) (no date) (unknown) [facility] (no value) (units unknown) (unknown) Result panel 4 (unknown) (no date) (unknown) [facility] (no value) (units unknown) (unknown) Result panel 5 (unknown) (no date) (unknown) [facility] (no value) (units unknown) (unknown) Result panel 6 (unknown) (no date) (unknown) [facility] (no value) (units unknown) (unknown) Result panel 7 (unknown) (no date) (unknown) [facility] (no value) (units unknown) (unknown) Result panel 8 (unknown) (no date) (unknown) [facility] (no value) (units unknown) (unknown) Result panel 9 (unknown) (no date) (unknown) [facility] (no value) (units unknown) (unknown) Result panel 10 (unknown) (no date) (unknown) [facility] (no value) (units unknown) (unknown) Result panel 11 (unknown) (no date) (unknown) [facility] (no value) (units unknown) (unknown) Result panel 12 (unknown) (no date) (unknown) [facility] (no value) (units unknown) (unknown) Result panel 13 (unknown) (no date) (unknown) [facility] (no value) (units unknown) (unknown) Result panel 14 (unknown) (no date) (unknown) [facility] (no value) (units unknown) (unknown) Result panel 15 (unknown) (no date) (unknown) [facility] (no value) (units unknown) (unknown) Result panel 16 (unknown) (no date) (unknown) [facility] (no value) (units unknown) (unknown) Result panel 17 (unknown) (no date) (unknown) [facility] (no value) (units unknown) (unknown) Result panel 18 (unknown) (no date) (unknown) [facility] (no value) (units unknown) (unknown) Result panel 19 (unknown) (no date) (unknown) [facility] (no value) (units unknown) (unknown) Result panel 20 (unknown) (no date) (unknown) [facility] (no value) (units unknown) (unknown) Result panel 21 (unknown) (no date) (unknown) [facility] (no value) (units unknown) (unknown) Result panel 22 (unknown) (no date) (unknown) [facility] (no value) (units unknown) (unknown) Result panel 23 (unknown) (no date) (unknown) [facility] (no value) (units unknown) (unknown) Result panel 24 (unknown) (no date) (unknown) [facility] (no value) (units unknown) (unknown) Result panel 25 (unknown) (no date) (unknown) [facility] (no value) (units unknown) (unknown) Result panel 26 (unknown) (no date) (unknown) [facility] (no value) (units unknown) (unknown) Result panel 27 (unknown) (no date) (unknown) [facility] (no value) (units unknown) (unknown) Result panel 28 (unknown) (no date) (unknown) [facility] (no value) (units unknown) (unknown) Result panel 29 (unknown) (no date) (unknown) [facility] (no value) (units unknown) (unknown) Result panel 30 (unknown) (no date) (unknown) [facility] (no value) (units unknown) (unknown) Result panel 31 (unknown) (no date) (unknown) [facility] (no value) (units unknown) (unknown) Result panel 32 (unknown) (no date) (unknown) [facility] (no value) (units unknown) (unknown) Result panel 33 (unknown) (no date) (unknown) [facility] (no value) (units unknown) (unknown) Result panel 34 (unknown) (no date) (unknown) [facility] (no value) (units unknown) (unknown) Result panel 35 (unknown) (no date) (unknown) [facility] (no value) (units unknown) (unknown) Result panel 36 (unknown) (no date) (unknown) [facility] (no value) (units unknown) (unknown) Result panel 37 (unknown) (no date) (unknown) [facility] (no value) (units unknown) (unknown) Result panel 38 (unknown) (no date) (unknown) [facility] (no value) (units unknown) (unknown) Result panel 39 (unknown) (no date) (unknown) [facility] (no value) (units unknown) (unknown) Result panel 40 (unknown) (no date) (unknown) [facility] (no value) (units unknown) (unknown) Result panel 41 (unknown) (no date) (unknown) [facility] (no value) (units unknown) (unknown) Result panel 42 (unknown) (no date) (unknown) [facility] (no value) (units unknown) (unknown) Result panel 43 (unknown) (no date) (unknown) [facility] (no value) (units unknown) (unknown) Result panel 44 (unknown) (no date) (unknown) [facility] (no value) (units unknown) (unknown) Result panel 45 (unknown) (no date) (unknown) [facility] (no value) (units unknown) (unknown) Result panel 46 (unknown) (no date) (unknown) [facility] (no value) (units unknown) (unknown) Result panel 47 (unknown) (no date) (unknown) [facility] (no value) (units unknown) (unknown) Result panel 48 (unknown) (no date) (unknown) [facility] (no value) (units unknown) (unknown) Result panel 49 (unknown) (no date) (unknown) [facility] (no value) (units unknown) (unknown) Result panel 50 (unknown) (no date) (unknown) [facility] (no value) (units unknown) (unknown) Result panel 51 (unknown) (no date) (unknown) [facility] (no value) (units unknown) (unknown) Result panel 52 (unknown) (no date) (unknown) [facility] (no value) (units unknown) (unknown) Result panel 53 (unknown) (no date) (unknown) [facility] value[facility] (units unknown) (unknown) Result panel 54 (unknown) (no date) (unknown) [facility] (no value) (units unknown) (unknown) Result panel 55 (unknown) (no date) (unknown) [facility] (no value) (units unknown) (unknown) Result panel 56 (unknown) (no date) (unknown) [facility] (no value) (units unknown) (unknown) Result panel 57 (unknown) (no date) (unknown) [facility] (no value) (units unknown) (unknown) Result panel 58 (unknown) (no date) (unknown) [facility] (no value) (units unknown) (unknown) Result panel 59 (unknown) (no date) (unknown) [facility] (no value) (units unknown) (unknown) Result panel 60 (unknown) (no date) (unknown) [facility] (no value) (units unknown) (unknown) Result panel 61 (unknown) (no date) (unknown) [facility] (no value) (units unknown) (unknown) Result panel 62 (unknown) (no date) (unknown) [facility] (no value) (units unknown) (unknown) Result panel 63 (unknown) (no date) (unknown) [facility] (no value) (units unknown) (unknown) Result panel 64 (unknown) (no date) (unknown) [facility] (no value) (units unknown) (unknown) Result panel 65 (unknown) (no date) (unknown) [facility] (no value) (units unknown) (unknown) Result panel 66 (unknown) (no date) (unknown) [facility] (no value) (units unknown) (unknown) Result panel 67 (unknown) (no date) (unknown) [facility] (no value) (units unknown) (unknown) Result panel 68 (unknown) (no date) (unknown) [facility] (no value) (units unknown) (unknown) Result panel 69 (unknown) (no date) (unknown) [facility] (no value) (units unknown) (unknown) Result panel 70 (unknown) (no date) (unknown) [facility] (no value) (units unknown) (unknown) Result panel 71 (unknown) (no date) (unknown) [facility] (no value) (units unknown) (unknown) Result [...] Result panel 77 (unknown) (no date) (unknown) [facility] (no value) (units unknown) (unknown) Result panel 78 (unknown) (no date) (unknown) [facility] (no value) (units unknown) (unknown) Result panel 79 (unknown) (no date) (unknown) [facility] (no value) (units unknown) (unknown) Result panel 80 (unknown) (no date) (unknown) [facility] (no value) (units unknown) (unknown) Result panel 81 (unknown) (no date) (unknown) [facility] (no value) (units unknown) (unknown) Result panel 82 (unknown) (no date) (unknown) [facility] (no value) (units unknown) (unknown) Result panel 83 (unknown) (no date) (unknown) [facility] (no value) (units unknown) (unknown) Result panel 84 (unknown) (no date) (unknown) [facility] (no value) (units unknown) (unknown) Result panel 85 (unknown) (no date) (unknown) [facility] (no value) (units unknown) (unknown) Result panel 86 (unknown) (no date) (unknown) [facility] (no value) (units unknown) (unknown) Result panel 87 (unknown) (no date) (unknown) [facility] (no value) (units unknown) (unknown) Result panel 88 (unknown) (no date) (unknown) [facility] (no value) (units unknown) (unknown) Result panel 89 (unknown) (no date) (unknown) [facility] (no value) (units unknown) (unknown) Result panel 90 (unknown) (no date) (unknown) [facility] (no value) (units unknown) (unknown) Result panel 91 (unknown) (no date) (unknown) [facility] (no value) (units unknown) (unknown) Result panel 92 (unknown) (no date) (unknown) [facility] (no value) (units unknown) (unknown) Result panel 93 (unknown) (no date) (unknown) [facility] (no value) (units unknown) (unknown) Result panel 94 (unknown) (no date) (unknown) [facility] (no value) (units unknown) (unknown) Result panel 95 (unknown) (no date) (unknown) [facility] (no value) (units unknown) (unknown) Result panel 96 (unknown) (no date) (unknown) [facility] (no value) (units unknown) (unknown) Result panel 97 (unknown) (no date) (unknown) [facility] (no value) (units unknown) (unknown) Result panel 98 (unknown) (no date) (unknown) [facility] (no value) (units unknown) (unknown) Result panel 99 (unknown) (no date) (unknown) [facility] (no value) (units unknown) (unknown) Result panel 100 (unknown) (no date) (unknown) [facility] (no value) (units unknown) (unknown) Result panel 101 (unknown) (no date) (unknown) [facility] (no value) (units unknown) (unknown) Result panel 102 (unknown) (no date) (unknown) [facility] (no value) (units unknown) (unknown) Result panel 103 (unknown) (no date) (unknown) [facility] (no value) (units unknown) (unknown) Result panel 104 (unknown) (no date) (unknown) [facility] (no value) (units unknown) (unknown) Result panel 105 (unknown) (no date) (unknown) [facility] (no value) (units unknown) (unknown) Result panel 106 (unknown) (no date) (unknown) [facility] (no value) (units unknown) (unknown) Result panel 107 (unknown) (no date) (unknown) [facility] (no value) (units unknown) (unknown) Result panel 108 (unknown) (no date) (unknown) [facility] (no value) (units unknown) (unknown) Result panel 109 (unknown) (no date) (unknown) [facility] (no value) (units unknown) (unknown) Result panel 110 (unknown) (no date) (unknown) [facility] (no value) (units unknown) (unknown) Result panel 111 (unknown) (no date) (unknown) [facility] (no value) (units unknown) (unknown) Result panel 112 (unknown) (no date) (unknown) [facility] (no value) (units unknown) (unknown) Result panel 113 (unknown) (no date) (unknown) [facility] (no value) (units unknown) (unknown) Result panel 114 (unknown) (no date) (unknown) [facility] (no value) (units unknown) (unknown) Result panel 115 (unknown) (no date) (unknown) [facility] (no value) (units unknown) (unknown) Result panel 116 (unknown) (no date) (unknown) [facility] (no value) (units unknown) (unknown) Result panel 117 (unknown) (no date) (unknown) [facility] (no value) (units unknown) (unknown) Result panel 118 (unknown) (no date) (unknown) [facility] (no value) (units unknown) (unknown) Result panel 119 (unknown) (no date) (unknown) [facility] (no value) (units unknown) (unknown) Result panel 120 (unknown) (no date) (unknown) [facility] (no value) (units unknown) (unknown) Result panel 121 (unknown) (no date) (unknown) [facility] (no value) (units unknown) (unknown) Result panel 122 (unknown) (no date) (unknown) [facility] (no value) (units unknown) (unknown) Result panel 123 (unknown) (no date) (unknown) [facility] (no value) (units unknown) (unknown) Result panel 124 (unknown) (no date) (unknown) [facility] (no value) (units unknown) (unknown) Result panel 125 (unknown) (no date) (unknown) [facility] (no value) (units unknown) (unknown) Result panel 126 (unknown) (no date) (unknown) [facility] (no value) (units unknown) (unknown) Result panel 127 (unknown) (no date) (unknown) [facility] (no value) (units unknown) (unknown) Result panel 128 (unknown) (no date) (unknown) [facility] (no value) (units unknown) (unknown) Result panel 129 (unknown) (no date) (unknown) [facility] (no value) (units unknown) (unknown) Result panel 130 (unknown) (no date) (unknown) [facility] (no value) (units unknown) (unknown) Result panel 131 (unknown) (no date) (unknown) [facility] (no value) (units unknown) (unknown) Result panel 132 (unknown) (no date) (unknown) [facility] (no value) (units unknown) (unknown) Result panel 133 (unknown) (no date) (unknown) [facility] (no value) (units unknown) (unknown) Result panel 134 (unknown) (no date) (unknown) [facility] (no value) (units unknown) (unknown) Result panel 135 (unknown) (no date) (unknown) [facility] (no value) (units unknown) (unknown) Result panel 136 (unknown) (no date) (unknown) [facility] (no value) (units unknown) (unknown) Result panel 137 (unknown) (no date) (unknown) [facility] (no value) (units unknown) (unknown) Result panel 138 (unknown) (no date) (unknown) [facility] (no value) (units unknown) (unknown) Result panel 139 (unknown) (no date) (unknown) [facility] (no value) (units unknown) (unknown) Result panel 140 (unknown) (no date) (unknown) [facility] (no value) (units unknown) (unknown) Result panel 141 (unknown) (no date) (unknown) [facility] (no value) (units unknown) (unknown) Result panel 142 (unknown) (no date) (unknown) [facility] (no value) (units unknown) (unknown) Result panel 143 (unknown) (no date) (unknown) [facility] (no value) (units unknown) (unknown) Result panel 144 (unknown) (no date) (unknown) [facility] (no value) (units unknown) (unknown) Result panel 145 (unknown) (no date) (unknown) [facility] (no value) (units unknown) (unknown) Result panel 146 (unknown) (no date) (unknown) [facility] (no value) (units unknown) (unknown) Result panel 147 (unknown) (no date) (unknown) [facility] (no value) (units unknown) (unknown) Result panel 148 (unknown) (no date) (unknown) [facility] (no value) (units unknown) (unknown) Result panel 149 (unknown) (no date) (unknown) [facility] (no value) (units unknown) (unknown) Result panel 150 (unknown) (no date) (unknown) [facility] (no value) (units unknown) (unknown) Result panel 151 (unknown) (no date) (unknown) [facility] (no value) (units unknown) (unknown) Result panel 152 (unknown) (no date) (unknown) [facility] (no value) (units unknown) (unknown) Result panel 153 (unknown) (no date) (unknown) [facility] (no value) (units unknown) (unknown) Result panel 154 (unknown) (no date) (unknown) [facility] (no value) (units unknown) (unknown) Result panel 155 (unknown) (no date) (unknown) [facility] (no value) (units unknown) (unknown) Result panel 156 (unknown) (no date) (unknown) [facility] (no value) (units unknown) (unknown) Result panel 157 (unknown) (no date) (unknown) [facility] (no value) (units unknown) (unknown) Result panel 158 (unknown) (no date) (unknown) [facility] (no value) (units unknown) (unknown) Result panel 159 (unknown) (no date) (unknown) [facility] (no value) (units unknown) (unknown) Result panel 160 (unknown) (no date) (unknown) [facility] (no value) (units unknown) (unknown) Result panel 161 (unknown) (no date) (unknown) [facility] (no value) (units unknown) (unknown) Result panel 162 (unknown) (no date) (unknown) [facility] (no value) (units unknown) (unknown) Result panel 163 (unknown) (no date) (unknown) [facility] (no value) (units unknown) (unknown) Result panel 164 (unknown) (no date) (unknown) [facility] (no value) (units unknown) (unknown) Result panel 165 (unknown) (no date) (unknown) [facility] (no value) (units unknown) (unknown) Result panel 166 (unknown) (no date) (unknown) [facility] (no value) (units unknown) (unknown) Result panel 167 (unknown) (no date) (unknown) [facility] (no value) (units unknown) (unknown) Result panel 168 (unknown) (no date) (unknown) [facility] (no value) (units unknown) (unknown) Result panel 169 (unknown) (no date) (unknown) [facility] (no value) (units unknown) (unknown) Result panel 170 (unknown) (no date) (unknown) [facility] (no value) (units unknown) (unknown) Result panel 171 (unknown) (no date) (unknown) [facility] (no value) (units unknown) (unknown) Result panel 172 (unknown) (no date) (unknown) [facility] (no value) (units unknown) (unknown) Result panel 173 (unknown) (no date) (unknown) [facility] (no value) (units unknown) (unknown) Result panel 174 (unknown) (no date) (unknown) [facility] (no value) (units unknown) (unknown) Result panel 175 (unknown) (no date) (unknown) [facility] (no value) (units unknown) (unknown) Result panel 176 (unknown) (no date) (unknown) [facility] (no value) (units unknown) (unknown) Result panel 177 (unknown) (no date) (unknown) [facility] (no value) (units unknown) (unknown) Result panel 178 (unknown) (no date) (unknown) [facility] (no value) (units unknown) (unknown) Result panel 179 (unknown) (no date) (unknown) [facility] (no value) (units unknown) (unknown) Result panel 180 (unknown) (no date) (unknown) [facility] (no value) (units unknown) (unknown) Result panel 181 (unknown) (no date) (unknown) [facility] (no value) (units unknown) (unknown) Result panel 182 (unknown) (no date) (unknown) [facility] (no value) (units unknown) (unknown) Result panel 183 (unknown) (no date) (unknown) [facility] (no value) (units unknown) (unknown) Result panel 184 (unknown) (no date) (unknown) [facility] (no value) (units unknown) (unknown) Result panel 185 (unknown) (no date) (unknown) [facility] (no value) (units unknown) (unknown) Result panel 186 (unknown) (no date) (unknown) [facility] (no value) (units unknown) (unknown) Result panel 187 (unknown) (no date) (unknown) [facility] (no value) (units unknown) (unknown) Result panel 188 (unknown) (no date) (unknown) [facility] (no value) (units unknown) (unknown) Result panel 189 (unknown) (no date) (unknown) (unknown) (no value) (units unknown) (unknown) (unknown) (no date) (unknown) (unknown) [id number] (units unknown) (unknown) (unknown) (no date) (unknown) (unknown) 06/16/22 (units unknown) (unknown) (unknown) (no date) (unknown) (unknown) [address] [place] [address] (units unknown) (unknown) (unknown) (no date) (unknown) (unknown) Accession Number: [id number] (units unknown) (unknown) (unknown) (no date) (unknown) (unknown) Age/Sex: 86 / M Date of Service: (units unknown) (unknown) (unknown) (no date) (unknown) (unknown) [place] [address] (units unknown) (unknown) (unknown) (no date) (unknown) (unknown) Approved by: Brandyn Davis M.D. on 06/16/2022 at 13:03 (units unknown) (unknown) (unknown) (no date) (unknown) (unknown) Bones and chest wall: No suspicious bony lesions. Overlying soft tissues (units unknown) (unknown) (unknown) (no date) (unknown) (unknown) COMPARISON: None. (units unknown) (unknown) (unknown) (no date) (unknown) (unknown) : 1935 Acct:[id number] (units unknown) (unknown) (unknown) (no date) (unknown) (unknown) Dictated by: Brandyn Davis M.D. on 06/16/2022 at 13:02 (units unknown) (unknown) (unknown) (no date) (unknown) (unknown) FINDINGS: (units unknown) (unknown) (unknown) (no date) (unknown) (unknown) IMPRESSION: Possible mild right and retrocardiac opacities could represent (units unknown) (unknown) (unknown) (no date) (unknown) (unknown) INDICATIONS: suspected sepsis (units unknown) (unknown) (unknown) (no date) (unknown) (unknown) [facility] (units unknown) (unknown) (unknown) (no date) (unknown) [...] unknown) (unknown) (unknown) (no date) (unknown) (unknown) [id number] (units unknown) (unknown) (unknown) (no date) (unknown) (unknown) 06/16/22 (units unknown) (unknown) (unknown) (no date) (unknown) (unknown) [address] [place] [address] (units unknown) (unknown) (unknown) (no date) (unknown) (unknown) Accession Number: [id number] (units unknown) (unknown) (unknown) (no date) (unknown) (unknown) Age/Sex: 86 / M Date of Service: (units unknown) (unknown) (unknown) (no date) (unknown) (unknown) [place] [address] (units unknown) (unknown) (unknown) (no date) (unknown) [...] (unknown) (no date) (unknown) (unknown) : 1935 Acct:[id number] (units unknown) (unknown) (unknown) (no date) (unknown) [...] unknown) (unknown) (unknown) (no date) (unknown) (unknown) [facility] (units unknown) (unknown) (unknown) (no date) (unknown) [...] unknown) (unknown) (unknown) (no date) (unknown) (unknown) [id number] (units unknown) (unknown) (unknown) (no date) (unknown) (unknown) 06/16/22 (units unknown) (unknown) (unknown) (no date) (unknown) (unknown) [address] [place] [address] (units unknown) (unknown) (unknown) (no date) (unknown) (unknown) Accession Number: [id number] (units unknown) (unknown) (unknown) (no date) (unknown) (unknown) After the administration of intravenous contrast, 5 mm thick sections acquired (units unknown) (unknown) (unknown) (no date) (unknown) (unknown) Age/Sex: 86 / M Date of Service: (units unknown) (unknown) (unknown) (no date) (unknown) (unknown) [place] [address] (units unknown) (unknown) (unknown) (no date) (unknown) (unknown) Approved by: Brandyn Davis M.D. on 06/16/2022 at 14:52 (units unknown) (unknown) (unknown) (no date) (unknown) (unknown) Bones: No acute or suspicious osseous abnormality. (units unknown) (unknown) (unknown) (no date) (unknown) (unknown) COMPARISON: [facility], CR, XR CHEST 1V, 06/16/2022, 12:43. (units unknown) (unknown) (unknown) (no date) (unknown) (unknown) CT Scan Report (units unknown) (unknown) (unknown) (no date) (unknown) (unknown) Chest wall and thyroid: Unremarkable (units unknown) (unknown) (unknown) (no date) (unknown) (unknown) : 1935 Acct:[id number] (units unknown) (unknown) (unknown) (no date) (unknown) [...] unknown) (unknown) (unknown) (no date) (unknown) (unknown) [facility] (units unknown) (unknown) (unknown) (no date) (unknown) (unknown) Loc: ED (units unknown) (unknown) (unknown) (no date) (unknown) (unknown) Lungs and pleura: Bilateral nypl-ll-suvejvlr pleural effusions, slightly (units unknown) (unknown) (unknown) (no date) (unknown) (unknown) Mediastinum, heart, and esophagus: No hiatal hernia. Left chest wall pulse (units unknown) (unknown) (unknown) (no date) (unknown) (unknown) Hisi-kd-wlwcysac, (units unknown) (unknown) (unknown) (no date) (unknown) [...] unknown) (unknown) (unknown) (no date) (unknown) (unknown) [id number] (units unknown) (unknown) (unknown) (no date) (unknown) [...] (unknown) (no date) (unknown) (unknown) : 1935 Acct:[id number] (units unknown) (unknown) (unknown) (no date) (unknown) (unknown) Data collected from: Patient and and patient's underground foreman as well as ER (units unknown) (unknown) [...] unknown) (unknown) (unknown) (no date) (unknown) (unknown) [address] [address] (units unknown) (unknown) (unknown) (no date) (unknown) [...] (no date) (unknown) (unknown) Lymph # (Auto) (4251-9842) /uL (units unknown) (unknown) (unknown) (no date) (unknown) (unknown) Lymph # (Auto) 400 L (0634-5564) /uL (units unknown) (unknown) (unknown) (no date) [...] unknown) (unknown) (unknown) (no date) (unknown) (unknown) [place] # (Auto) (0-900) /uL (units unknown) (unknown) (unknown) (no date) (unknown) (unknown) [place] # (Auto) 900 (0-900) /uL (units unknown) (unknown) (unknown) (no date) (unknown) (unknown) [place] % (Auto) (3-14) % (units unknown) (unknown) (unknown) (no date) (unknown) (unknown) [place] % (Auto) 9.4 (3-14) % (units unknown) [...] (no date) (unknown) (unknown) Neut # (Auto) (8761-4882) /uL (units unknown) (unknown) (unknown) (no date) (unknown) (unknown) Neut # (Auto) 8200 H (3508-7429) /uL (units unknown) (unknown) (unknown) (no date) [...] unknown) (unknown) (unknown) (no date) (unknown) (unknown) [facility] ER for evaluation of dark urine. CT [...] date) (unknown) (unknown) hands with strong equal motion and time study teacher 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 (units unknown) (unknown) (unknown) [...] (no date) (unknown) (unknown) spoke with patient's underground foreman and he was concern for patient's welfare [...] unknown) (unknown) (unknown) (no date) (unknown) (unknown) [id number] (units unknown) (unknown) (unknown) (no date) (unknown) [...] (unknown) (no date) (unknown) (unknown) : 1935 Acct:[id number] (units unknown) (unknown) (unknown) (no date) (unknown) (unknown) Data collected from: Patient and and patient's underground foreman as well as ER (units unknown) (unknown) [...] unknown) (unknown) (unknown) (no date) (unknown) (unknown) [address] [address] (units unknown) (unknown) (unknown) (no date) (unknown) [...] (no date) (unknown) (unknown) Lymph # (Auto) (9950-0925) /uL (units unknown) (unknown) (unknown) (no date) (unknown) (unknown) Lymph # (Auto) 400 L (6411-8797) /uL (units unknown) (unknown) (unknown) (no date) [...] unknown) (unknown) (unknown) (no date) (unknown) (unknown) [place] # (Auto) (0-900) /uL (units unknown) (unknown) (unknown) (no date) (unknown) (unknown) [place] # (Auto) 900 (0-900) /uL (units unknown) (unknown) (unknown) (no date) (unknown) (unknown) [place] % (Auto) (3-14) % (units unknown) (unknown) (unknown) (no date) (unknown) (unknown) [place] % (Auto) 9.4 (3-14) % (units unknown) [...] (no date) (unknown) (unknown) Neut # (Auto) (0394-3856) /uL (units unknown) (unknown) (unknown) (no date) (unknown) (unknown) Neut # (Auto) 8200 H (0315-4499) /uL (units unknown) (unknown) (unknown) (no date) [...] unknown) (unknown) (unknown) (no date) (unknown) (unknown) [facility] ER for evaluation of dark urine. CT [...] date) (unknown) (unknown) hands with strong equal motion and time study teacher 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 (units unknown) (unknown) (unknown) [...] (no date) (unknown) (unknown) spoke with patient's underground foreman and he was concern for patient's welfare [...] unknown) (unknown) (unknown) (no date) (unknown) (unknown) [id number] (units unknown) (unknown) (unknown) (no date) (unknown) [...] (unknown) (no date) (unknown) (unknown) [address] [place] (units unknown) (unknown) (unknown) (no date) (unknown) [...] (unknown) (no date) (unknown) (unknown) Accession Number: [id number] ?? (units unknown) (unknown) (unknown) (no date) (unknown) (unknown) Accession Number: [id number] ?? (units unknown) (unknown) (unknown) (no date) (unknown) (unknown) Accession Number: [id number] ?? (units unknown) (unknown) (unknown) (no date) (unknown) (unknown) Acct:[id number] (units unknown) (unknown) (unknown) (no date) (unknown) [...] unknown) (unknown) (unknown) (no date) (unknown) (unknown) [place] [address] (units unknown) (unknown) (unknown) (no date) (unknown) [...] unknown) (unknown) (unknown) (no date) (unknown) (unknown) COMPARISON:[facility], CR, XR CHEST 1V, 06/16/2022, 12:43. (units [...] (unknown) (no date) (unknown) (unknown) : 1935 Acct:[id number] (units unknown) (unknown) (unknown) (no date) (unknown) (unknown) : 1935 (units unknown) (unknown) (unknown) (no date) (unknown) (unknown) Data collected from: Patient and and patient's underground foreman as well as ER (units unknown) (unknown) [...] unknown) (unknown) (unknown) (no date) (unknown) (unknown) [address] [address] (units unknown) (unknown) (unknown) (no date) (unknown) (unknown) [facility] (units unknown) (unknown) (unknown) (no date) (unknown) [...] date) (unknown) (unknown) Lungs and pleura:? Bilateral ljsz-lq-wamlraww pleural effusions, slightly (units unknown) (unknown) (unknown) (no date) (unknown) (unknown) Lungs and pleura:? Low lung volumes.? Possible mild right and retrocardiac basal (units unknown) (unknown) (unknown) (no date) (unknown) (unknown) Lymph # (Auto) (3993-9207) /uL (units unknown) (unknown) (unknown) (no date) (unknown) (unknown) Lymph # (Auto) 400 L (6467-5819) /uL (units unknown) (unknown) (unknown) (no date) [...] (unknown) (unknown) (no date) (unknown) (unknown) MR#: [id number] (units unknown) (unknown) (unknown) (no date) (unknown) [...] unknown) (unknown) (unknown) (no date) (unknown) (unknown) Trpt-vh-xousbdwv, (units unknown) (unknown) (unknown) (no date) (unknown) (unknown) Mode of arrival: Wheelchair (units unknown) (unknown) (unknown) (no date) (unknown) (unknown) [place] # (Auto) (0-900) /uL (units unknown) (unknown) (unknown) (no date) (unknown) (unknown) [place] # (Auto) 900 (0-900) /uL (units unknown) (unknown) (unknown) (no date) (unknown) (unknown) [place] % (Auto) (3-14) % (units unknown) (unknown) (unknown) (no date) (unknown) (unknown) [place] % (Auto) 9.4 (3-14) % (units unknown) [...] (no date) (unknown) (unknown) Neut # (Auto) (9538-5507) /uL (units unknown) (unknown) (unknown) (no date) (unknown) (unknown) Neut # (Auto) 8200 H (8652-3613) /uL (units unknown) (unknown) (unknown) (no date) [...] unknown) (unknown) (unknown) (no date) (unknown) (unknown) [facility] ER for evaluation of dark urine. CT [...] date) (unknown) (unknown) hands with strong equal motion and time study teacher 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 (units unknown) (unknown) (unknown) [...] (no date) (unknown) (unknown) spoke with patient's underground foreman and he was concern for patient's welfare [...] unknown) (unknown) (unknown) (no date) (unknown) (unknown) [id number] (units unknown) (unknown) (unknown) (no date) (unknown) [...] (unknown) (unknown) (no date) (unknown) (unknown) [address] [place] [address] (units unknown) (unknown) (unknown) (no date) (unknown) [...] (unknown) (no date) (unknown) (unknown) Accession Number: [id number] ?? (units unknown) (unknown) (unknown) (no date) (unknown) (unknown) Accession Number: [id number] ?? (units unknown) (unknown) (unknown) (no date) (unknown) (unknown) Accession Number: [id number] ?? (units unknown) (unknown) (unknown) (no date) (unknown) (unknown) Acct:[id number] (units unknown) (unknown) (unknown) (no date) (unknown) [...] unknown) (unknown) (unknown) (no date) (unknown) (unknown) [place] [address] (units unknown) (unknown) (unknown) (no date) (unknown) [...] (unknown) (unknown) (no date) (unknown) (unknown) COMPARISON:? [facility], CR, XR CHEST 1V, 06/16/2022, 12:43. (units [...] (unknown) (no date) (unknown) (unknown) : 1935 Acct:[id number] (units unknown) (unknown) (unknown) (no date) (unknown) (unknown) : 1935 (units unknown) (unknown) (unknown) (no date) (unknown) (unknown) Data collected from: Patient and and patient's underground foreman as well as ER (units unknown) (unknown) [...] unknown) (unknown) (unknown) (no date) (unknown) (unknown) [address] [address] (units unknown) (unknown) (unknown) (no date) (unknown) (unknown) [facility] (units unknown) (unknown) (unknown) (no date) (unknown) [...] date) (unknown) (unknown) Lungs and pleura:? Bilateral dujp-ms-clvnmnqs pleural effusions, slightly (units unknown) (unknown) (unknown) (no date) (unknown) (unknown) Lungs and pleura:? Low lung volumes.? Possible mild right and retrocardiac basal (units unknown) (unknown) (unknown) (no date) (unknown) (unknown) Lymph # (Auto) (0463-1996) /uL (units unknown) (unknown) (unknown) (no date) (unknown) (unknown) Lymph # (Auto) 400 L (4082-8831) /uL (units unknown) (unknown) (unknown) (no date) [...] (unknown) (unknown) (no date) (unknown) (unknown) MR#: [id number] (units unknown) (unknown) (unknown) (no date) (unknown) [...] unknown) (unknown) (unknown) (no date) (unknown) (unknown) Ehay-wy-kyexburo, (units unknown) (unknown) (unknown) (no date) (unknown) (unknown) Mode of arrival: Wheelchair (units unknown) (unknown) (unknown) (no date) (unknown) (unknown) [place] # (Auto) (0-900) /uL (units unknown) (unknown) (unknown) (no date) (unknown) (unknown) [place] # (Auto) 900 (0-900) /uL (units unknown) (unknown) (unknown) (no date) (unknown) (unknown) [place] % (Auto) (3-14) % (units unknown) (unknown) (unknown) (no date) (unknown) (unknown) [place] % (Auto) 9.4 (3-14) % (units unknown) [...] (no date) (unknown) (unknown) Neut # (Auto) (3370-5655) /uL (units unknown) (unknown) (unknown) (no date) (unknown) (unknown) Neut # (Auto) 8200 H (6036-8643) /uL (units unknown) (unknown) (unknown) (no date) [...] unknown) (unknown) (unknown) (no date) (unknown) (unknown) [facility] ER for evaluation of dark urine. CT [...] date) (unknown) (unknown) hands with strong equal motion and time study teacher 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 (units unknown) (unknown) (unknown) [...] (no date) (unknown) (unknown) spoke with patient's underground foreman and he was concern for patient's welfare [...] unknown) (unknown) (unknown) (no date) (unknown) (unknown) [id number] (units unknown) (unknown) (unknown) (no date) (unknown) [...] (unknown) (no date) (unknown) (unknown) : 1935 Acct:[id number] (units unknown) (unknown) (unknown) (no date) (unknown) [...] unknown) (unknown) (unknown) (no date) (unknown) (unknown) [address] [address] (units unknown) (unknown) (unknown) (no date) (unknown) [...] unknown) (unknown) (unknown) (no date) (unknown) (unknown) [place] # (Auto) 900 (units unknown) (unknown) (unknown) (no date) (unknown) (unknown) [place] # (Auto) (units unknown) (unknown) (unknown) (no date) (unknown) (unknown) [place] % (Auto) 9.4 (units unknown) (unknown) (unknown) (no date) (unknown) (unknown) [place] % (Auto) (units unknown) (unknown) (unknown) (no [...] (no date) (unknown) (unknown) Provider: Hawa Michael [employer]- (units unknown) (unknown) (unknown) (no date) (unknown) [...] (unknown) (no date) (unknown) (unknown) Ur Specific [place] 1.020 (units unknown) (unknown) (unknown) (no date) (unknown) (unknown) [facility] Specific [place] (units unknown) (unknown) (unknown) (no date) (unknown) [...] unknown) (unknown) (unknown) (no date) (unknown) (unknown) [id number] (units unknown) (unknown) (unknown) (no date) (unknown) (unknown) 06/16/22 (units unknown) (unknown) (unknown) (no date) (unknown) (unknown) 1. Multiple ill-defined hypoattenuating mass lesions throughout the liver. The (units unknown) (unknown) (unknown) (no date) (unknown) (unknown) [address] [place] [address] (units unknown) (unknown) (unknown) (no date) (unknown) (unknown) 2. Numerous small hypoattenuating lesions throughout the spleen are also (units unknown) (unknown) (unknown) (no date) (unknown) (unknown) ABDOMEN: (units unknown) (unknown) (unknown) (no date) (unknown) (unknown) Abdominal Nodes: No retroperitoneal or mesenteric adenopathy by size criteria. (units unknown) (unknown) (unknown) (no date) (unknown) (unknown) Accession Number: [id number] (units unknown) (unknown) (unknown) (no date) (unknown) (unknown) Adrenal Glands: No adrenal nodules. (units unknown) (unknown) (unknown) (no date) (unknown) (unknown) After the administration of IV contrast, axial sections were acquired from the (units unknown) (unknown) (unknown) (no date) (unknown) (unknown) Age/Sex: 86 / M Date of Service: (units unknown) (unknown) (unknown) (no date) (unknown) (unknown) [place] [address] (units unknown) (unknown) (unknown) (no date) (unknown) [...] (unknown) (no date) (unknown) (unknown) : 1935 Acct:[id number] (units unknown) (unknown) (unknown) (no date) (unknown) [...] unknown) (unknown) (unknown) (no date) (unknown) (unknown) [facility] (units unknown) (unknown) (unknown) (no date) (unknown) [...] unknown) (unknown) (unknown) (no date) (unknown) (unknown) [id number] (units unknown) (unknown) (unknown) (no date) (unknown) [...] (unknown) (no date) (unknown) (unknown) : 1935 Acct:[id number] (units unknown) (unknown) (unknown) (no date) (unknown) [...] unknown) (unknown) (unknown) (no date) (unknown) (unknown) [address] [address] (units unknown) (unknown) (unknown) (no date) (unknown) [...] unknown) (unknown) (unknown) (no date) (unknown) (unknown) [place] # (Auto) 900 (units unknown) (unknown) (unknown) (no date) (unknown) (unknown) [place] # (Auto) (units unknown) (unknown) (unknown) (no date) (unknown) (unknown) [place] % (Auto) 9.4 (units unknown) (unknown) (unknown) (no date) (unknown) (unknown) [place] % (Auto) (units unknown) (unknown) (unknown) (no [...] (unknown) (no date) (unknown) (unknown) Ur Specific [place] 1.020 (units unknown) (unknown) (unknown) (no date) (unknown) (unknown) [facility] Specific [place] (units unknown) (unknown) (unknown) (no date) (unknown) [...] unknown) (unknown) (unknown) (no date) (unknown) (unknown) [id number] (units unknown) (unknown) (unknown) (no date) (unknown) [...] (unknown) (no date) (unknown) (unknown) : 1935 Acct:[id number] (units unknown) (unknown) (unknown) (no date) (unknown) [...] unknown) (unknown) (unknown) (no date) (unknown) (unknown) [address] [address] (units unknown) (unknown) (unknown) (no date) (unknown) [...] (Updated 06/16/22 @ 21:27 by [facility] Michael [facility]) (units unknown) (unknown) (unknown) (no date) (unknown) (unknown) Medication Instructions Recorded Confirmed Type (units unknown) (unknown) (unknown) (no date) (unknown) (unknown) Meds (units unknown) (unknown) (unknown) (no date) (unknown) (unknown) [place] # (Auto) 900 (units unknown) (unknown) (unknown) (no date) (unknown) (unknown) [place] # (Auto) (units unknown) (unknown) (unknown) (no date) (unknown) (unknown) [place] % (Auto) 9.4 (units unknown) (unknown) (unknown) (no date) (unknown) (unknown) [place] % (Auto) (units unknown) (unknown) (unknown) (no [...] (unknown) (no date) (unknown) (unknown) Ur Specific [place] 1.020 (units unknown) (unknown) (unknown) (no date) (unknown) (unknown) [facility] Specific [place] (units unknown) (unknown) (unknown) (no date) (unknown) [...] date) (unknown) (unknown) (no value) (units unknown) 91912-9 (unknown) (no date) (unknown) (unknown) (no value) (units unknown) (unknown) (unknown) (no date) (unknown) (unknown) 1.8 ng/ml 12980-6 (unknown) (no date) (unknown) (unknown) 1.8 ng/ml (unknown) (unknown) (no date) (unknown) (unknown) Negative (units unknown) (unknown) (unknown) (no date) (unknown) (unknown) Negative (units unknown) 41902-0 (unknown) (no date) (unknown) (unknown) Negative (units unknown) 83450-9 (unknown) (no date) (unknown) (unknown) Negative (units unknown) 5196-1 (unknown) (no date) (unknown) (unknown) Non Reactive (units unknown) (unknown) (unknown) (no date) (unknown) (unknown) Non Reactive (units unknown) 95617-2 Result panel 210 (unknown) (no date) (unknown) [...] unknown) (unknown) (unknown) (no date) (unknown) (unknown) [id number] (units unknown) (unknown) (unknown) (no date) (unknown) [...] (unknown) (no date) (unknown) (unknown) : 1935 Acct:[id number] (units unknown) (unknown) (unknown) (no date) (unknown) [...] unknown) (unknown) (unknown) (no date) (unknown) (unknown) [address] [address] (units unknown) (unknown) (unknown) (no date) (unknown) [...] unknown) (unknown) (unknown) (no date) (unknown) (unknown) [place] # (Auto) 900 (units unknown) (unknown) (unknown) (no date) (unknown) (unknown) [place] # (Auto) (units unknown) (unknown) (unknown) (no date) (unknown) (unknown) [place] % (Auto) 9.4 (units unknown) (unknown) (unknown) (no date) (unknown) (unknown) [place] % (Auto) (units unknown) (unknown) (unknown) (no [...] (no date) (unknown) (unknown) Provider: Hawa Michael [employer]-BC (units unknown) (unknown) (unknown) (no date) (unknown) [...] (Updated 06/16/22 @ 21:27 by Hawa Michael [employer]-) (units unknown) (unknown) (unknown) (no date) (unknown) [...] (unknown) (no date) (unknown) (unknown) Ur Specific [place] 1.020 (units unknown) (unknown) (unknown) (no date) (unknown) (unknown) [facility] Specific [place] (units unknown) (unknown) (unknown) (no date) (unknown) [...] unknown) (unknown) (unknown) (no date) (unknown) (unknown) [id number] (units unknown) (unknown) (unknown) (no date) (unknown) (unknown) 06/17/22 (units unknown) (unknown) (unknown) (no date) (unknown) (unknown) [address] [place] [address] (units unknown) (unknown) (unknown) (no date) (unknown) (unknown) Accession Number: [id number] (units unknown) (unknown) (unknown) (no date) (unknown) (unknown) Age/Sex: 86 / M Date of Service: (units unknown) (unknown) (unknown) (no date) (unknown) (unknown) [place] [address] (units unknown) (unknown) (unknown) (no date) (unknown) (unknown) Approved by: Feliberto Mendoza M.D. on 06/17/2022 at 10:08 (units unknown) (unknown) (unknown) (no date) (unknown) (unknown) Biliary ducts: Intrahepatic bile ducts are non-dilated. Extrahepatic bile (units unknown) (unknown) (unknown) (no date) (unknown) (unknown) COMPARISON: [facility], CT, CT ABDOMEN PELVIS W CON, 06/16/2022, 21:22. (units unknown) (unknown) (unknown) (no date) (unknown) (unknown) CT 06/16/2019 (units unknown) (unknown) (unknown) (no date) (unknown) (unknown) : 1935 Acct:[id number] (units unknown) (unknown) (unknown) (no date) (unknown) [...] unknown) (unknown) (unknown) (no date) (unknown) (unknown) [facility] (units unknown) (unknown) (unknown) (no date) (unknown) [...] unknown) (unknown) (unknown) (no date) (unknown) (unknown) [id number] (units unknown) (unknown) (unknown) (no date) (unknown) [...] (unknown) (no date) (unknown) (unknown) : 1935 Acct:[id number] (units unknown) (unknown) (unknown) (no date) (unknown) [...] unknown) (unknown) (unknown) (no date) (unknown) (unknown) [address] [address] (units unknown) (unknown) (unknown) (no date) (unknown) [...] unknown) (unknown) (unknown) (no date) (unknown) (unknown) [place] # (Auto) 900 (units unknown) (unknown) (unknown) (no date) (unknown) (unknown) [place] # (Auto) (units unknown) (unknown) (unknown) (no date) (unknown) (unknown) [place] % (Auto) 9.4 (units unknown) (unknown) (unknown) (no date) (unknown) (unknown) [place] % (Auto) (units unknown) (unknown) (unknown) (no [...] (Updated 06/16/22 @ 21:27 by Hawa Michael [facility]) (units unknown) (unknown) (unknown) (no date) (unknown) [...] (unknown) (no date) (unknown) (unknown) Ur Specific [place] 1.020 (units unknown) (unknown) (unknown) (no date) (unknown) (unknown) [facility] Specific [place] (units unknown) (unknown) (unknown) (no date) (unknown) [...] unknown) (unknown) (unknown) (no date) (unknown) (unknown) [id number] (units unknown) (unknown) (unknown) (no date) (unknown) [...] (unknown) (no date) (unknown) (unknown) : 1935 Acct:[id number] (units unknown) (unknown) (unknown) (no date) (unknown) [...] unknown) (unknown) (unknown) (no date) (unknown) (unknown) [address] [address] (units unknown) (unknown) (unknown) (no date) (unknown) [...] History (Updated 06/17/22 @ 00:55 [facility] (units unknown) (unknown) (unknown) (no date) (unknown) (unknown) Medication Instructions Recorded Confirmed Type (units unknown) (unknown) (unknown) (no date) (unknown) (unknown) Meds (units unknown) (unknown) (unknown) (no date) (unknown) (unknown) [place] # (Auto) 900 (units unknown) (unknown) (unknown) (no date) (unknown) (unknown) [place] # (Auto) (units unknown) (unknown) (unknown) (no date) (unknown) (unknown) [place] % (Auto) 9.4 (units unknown) (unknown) (unknown) (no date) (unknown) (unknown) [place] % (Auto) (units unknown) (unknown) (unknown) (no [...] (Updated 06/16/22 @ 21:27 by Hawa Michael [employer]-) (units unknown) (unknown) (unknown) (no date) (unknown) [...] (unknown) (no date) (unknown) (unknown) Ur Specific [place] 1.020 (units unknown) (unknown) (unknown) (no date) (unknown) (unknown) [facility] Specific [place] (units unknown) (unknown) (unknown) (no date) (unknown) [...] unknown) (unknown) (unknown) (no date) (unknown) (unknown) [id number] (units unknown) (unknown) (unknown) (no date) (unknown) [...] (unknown) (no date) (unknown) (unknown) : 1935 Acct:[id number] (units unknown) (unknown) (unknown) (no date) (unknown) [...] unknown) (unknown) (unknown) (no date) (unknown) (unknown) [address] [address] (units unknown) (unknown) (unknown) (no date) (unknown) [...] (unknown) (unknown) Lungs: Auscultation of all lung tryo are clear without adventitious sounds, (units unknown) [...] (Updated 06/17/22 @ 00:55 by Hawa Michael [facility]) (units unknown) (unknown) (unknown) (no date) (unknown) (unknown) Medication Instructions Recorded Confirmed Type (units unknown) (unknown) (unknown) (no date) (unknown) (unknown) Meds (units unknown) (unknown) (unknown) (no date) (unknown) (unknown) [place] # (Auto) 900 (units unknown) (unknown) (unknown) (no date) (unknown) (unknown) [place] # (Auto) (units unknown) (unknown) (unknown) (no date) (unknown) (unknown) [place] % (Auto) 9.4 (units unknown) (unknown) (unknown) (no date) (unknown) (unknown) [place] % (Auto) (units unknown) (unknown) (unknown) (no [...] (Updated 06/16/22 @ 21:27 by Hawa Michael [facility]) (units unknown) (unknown) (unknown) (no date) (unknown) [...] (unknown) (no date) (unknown) (unknown) Ur Specific [place] 1.020 (units unknown) (unknown) (unknown) (no date) (unknown) (unknown) [facility] [place] (units unknown) (unknown) (unknown) (no date) (unknown) [...] unknown) (unknown) (unknown) (no date) (unknown) (unknown) [id number] (units unknown) (unknown) (unknown) (no date) (unknown) [...] (unknown) (no date) (unknown) (unknown) : 1935 Acct:[id number] (units unknown) (unknown) (unknown) (no date) (unknown) [...] unknown) (unknown) (unknown) (no date) (unknown) (unknown) [address] [address] (units unknown) (unknown) (unknown) (no date) (unknown) [...] unknown) (unknown) (unknown) (no date) (unknown) (unknown) [place] # (Auto) 900 (units unknown) (unknown) (unknown) (no date) (unknown) (unknown) [place] # (Auto) (units unknown) (unknown) (unknown) (no date) (unknown) (unknown) [place] % (Auto) 9.4 (units unknown) (unknown) (unknown) (no date) (unknown) (unknown) [place] % (Auto) (units unknown) (unknown) (unknown) (no [...] (unknown) (no date) (unknown) (unknown) [facility] Specific [place] 1.020 (units unknown) (unknown) (unknown) (no date) (unknown) (unknown) [facility] [place] (units unknown) (unknown) (unknown) (no date) (unknown) [...] unknown) (unknown) (unknown) (no date) (unknown) (unknown) [id number] (units unknown) (unknown) (unknown) (no date) (unknown) [...] [facility] (units unknown) (unknown) (unknown) (no [...] (unknown) (no date) (unknown) (unknown) : 1935 Acct:[id number] (units unknown) (unknown) (unknown) (no date) (unknown) [...] unknown) (unknown) (unknown) (no date) (unknown) (unknown) [address] [address] (units unknown) (unknown) (unknown) (no date) (unknown) [...] (Updated 06/17/22 @ 00:55 by Hawa Michael [facility]) (units unknown) (unknown) (unknown) (no date) (unknown) (unknown) Medication Instructions Recorded Confirmed Type (units unknown) (unknown) (unknown) (no date) (unknown) (unknown) Meds (units unknown) (unknown) (unknown) (no date) (unknown) (unknown) [place] # (Auto) 900 (units unknown) (unknown) (unknown) (no date) (unknown) (unknown) [place] # (Auto) (units unknown) (unknown) (unknown) (no date) (unknown) (unknown) [place] % (Auto) 9.4 (units unknown) (unknown) (unknown) (no date) (unknown) (unknown) [place] % (Auto) (units unknown) (unknown) (unknown) (no [...] (no date) (unknown) (unknown) Provider: Hawa Michael [employer]- (units unknown) (unknown) (unknown) (no date) (unknown) [...] (unknown) (no date) (unknown) (unknown) [facility] Specific [place] 1.020 (units unknown) (unknown) (unknown) (no date) (unknown) (unknown) [facility] [place] (units unknown) (unknown) (unknown) (no date) (unknown) [...] unknown) (unknown) (unknown) (no date) (unknown) (unknown) [id number] (units unknown) (unknown) (unknown) (no date) (unknown) [...] (unknown) (no date) (unknown) (unknown) : 1935 Acct:[id number] (units unknown) (unknown) (unknown) (no date) (unknown) [...] unknown) (unknown) (unknown) (no date) (unknown) (unknown) [address] [address] (units unknown) (unknown) (unknown) (no date) (unknown) [...] unknown) (unknown) (unknown) (no date) (unknown) (unknown) [place] # (Auto) 900 (units unknown) (unknown) (unknown) (no date) (unknown) (unknown) [place] # (Auto) (units unknown) (unknown) (unknown) (no date) (unknown) (unknown) [place] % (Auto) 9.4 (units unknown) (unknown) (unknown) (no date) (unknown) (unknown) [place] % (Auto) (units unknown) (unknown) (unknown) (no [...] (Updated 06/16/22 @ 21:27 by Hawa Michael [facility]) (units unknown) (unknown) (unknown) (no date) (unknown) [...] (unknown) (no date) (unknown) (unknown) [facility] Specific [place] 1.020 (units unknown) (unknown) (unknown) (no date) (unknown) (unknown) [facility] [place] (units unknown) (unknown) (unknown) (no date) (unknown) [...] unknown) (unknown) (unknown) (no date) (unknown) (unknown) [id number] (units unknown) (unknown) (unknown) (no date) (unknown) [...] (unknown) (no date) (unknown) (unknown) : 1935 Acct:[id number] (units unknown) (unknown) (unknown) (no date) (unknown) [...] unknown) (unknown) (unknown) (no date) (unknown) (unknown) [address] [address] (units unknown) (unknown) (unknown) (no date) (unknown) [...] History (Updated 06/17/22 @ 00:55 [facility] (units unknown) (unknown) (unknown) (no date) (unknown) (unknown) Medication Instructions Recorded Confirmed Type (units unknown) (unknown) (unknown) (no date) (unknown) (unknown) Meds (units unknown) (unknown) (unknown) (no date) (unknown) (unknown) [place] # (Auto) 900 (units unknown) (unknown) (unknown) (no date) (unknown) (unknown) [place] # (Auto) (units unknown) (unknown) (unknown) (no date) (unknown) (unknown) [place] % (Auto) 9.4 (units unknown) (unknown) (unknown) (no date) (unknown) (unknown) [place] % (Auto) (units unknown) (unknown) (unknown) (no [...] (Updated 06/16/22 @ 21:27 by Hawa Michael [facility]) (units unknown) (unknown) (unknown) (no date) (unknown) [...] (unknown) (no date) (unknown) (unknown) [facility] Specific [place] 1.020 (units unknown) (unknown) (unknown) (no date) (unknown) (unknown) [facility] [place] (units unknown) (unknown) (unknown) (no date) (unknown) [...] unknown) (unknown) (unknown) (no date) (unknown) (unknown) [id number] (units unknown) (unknown) (unknown) (no date) (unknown) [...] (unknown) (no date) (unknown) (unknown) : 1935 Acct:[id number] (units unknown) (unknown) (unknown) (no date) (unknown) [...] unknown) (unknown) (unknown) (no date) (unknown) (unknown) [address] [address] (units unknown) (unknown) (unknown) (no date) (unknown) [...] (Updated 06/17/22 @ 00:55 by Hawa Michael [facility]) (units unknown) (unknown) (unknown) (no date) (unknown) (unknown) Medication Instructions Recorded Confirmed Type (units unknown) (unknown) (unknown) (no date) (unknown) (unknown) Meds (units unknown) (unknown) (unknown) (no date) (unknown) (unknown) [place] # (Auto) 900 (units unknown) (unknown) (unknown) (no date) (unknown) (unknown) [place] # (Auto) (units unknown) (unknown) (unknown) (no date) (unknown) (unknown) [place] % (Auto) 9.4 (units unknown) (unknown) (unknown) (no date) (unknown) (unknown) [place] % (Auto) (units unknown) (unknown) (unknown) (no [...] (Updated 06/16/22 @ 21:27 by Hawa Michael [facility]) (units unknown) (unknown) (unknown) (no date) (unknown) [...] (unknown) (no date) (unknown) (unknown) [facility] Specific [place] 1.020 (units unknown) (unknown) (unknown) (no date) (unknown) (unknown) [facility] [place] (units unknown) (unknown) (unknown) (no date) (unknown) [...] unknown) (unknown) (unknown) (no date) (unknown) (unknown) [id number] (units unknown) (unknown) (unknown) (no date) (unknown) [...] (unknown) (no date) (unknown) (unknown) : 1935 Acct:[id number] (units unknown) (unknown) (unknown) (no date) (unknown) [...] unknown) (unknown) (unknown) (no date) (unknown) (unknown) [address] [address] (units unknown) (unknown) (unknown) (no date) (unknown) [...] unknown) (unknown) (unknown) (no date) (unknown) (unknown) [place] # (Auto) 900 (units unknown) (unknown) (unknown) (no date) (unknown) (unknown) [place] # (Auto) (units unknown) (unknown) (unknown) (no date) (unknown) (unknown) [place] % (Auto) 9.4 (units unknown) (unknown) (unknown) (no date) (unknown) (unknown) [place] % (Auto) (units unknown) (unknown) (unknown) (no [...] (unknown) (no date) (unknown) (unknown) [facility] [place] 1.020 (units unknown) (unknown) (unknown) (no date) (unknown) (unknown) [facility] [place] (units unknown) (unknown) (unknown) (no date) (unknown) [...] (unknown) (unknown) (no date) (unknown) (unknown) [From [facility]] and feet x (units unknown) (unknown) (unknown) [...] (unknown) (no date) (unknown) (unknown) -consult for PT/OT/ROBOTIC MACHINE TENDER PRODUCTION-social work: Concerned patient is not safe to [...] unknown) (unknown) (unknown) (no date) (unknown) (unknown) [phone] (units unknown) (unknown) (unknown) (no date) (unknown) [...] (unknown) (no date) (unknown) (unknown) : 1935 Acct:[id number] (units unknown) (unknown) (unknown) (no date) (unknown) [...] unknown) (unknown) (unknown) (no date) (unknown) (unknown) [address] [address] (units unknown) (unknown) (unknown) (no date) (unknown) [...] unknown) (unknown) (unknown) (no date) (unknown) (unknown) [place] # (Auto) 900 (units unknown) (unknown) (unknown) (no date) (unknown) (unknown) [place] # (Auto) (units unknown) (unknown) (unknown) (no date) (unknown) (unknown) [place] % (Auto) 9.4 (units unknown) (unknown) (unknown) (no date) (unknown) (unknown) [place] % (Auto) (units unknown) (unknown) (unknown) (no [...] (Updated 06/16/22 @ 21:27 by Hawa Michael [facility]) (units unknown) (unknown) (unknown) (no date) (unknown) [...] (unknown) (no date) (unknown) (unknown) [facility] Specific [place] 1.020 (units unknown) (unknown) (unknown) (no date) (unknown) (unknown) [facility] [place] (units unknown) (unknown) (unknown) (no date) (unknown) [...] (unknown) (unknown) well as consult evaluations by PT/OT/ROBOTIC MACHINE TENDER PRODUCTION. (units unknown) (unknown) (unknown) (no date) (unknown) [...] (unknown) (no date) (unknown) (unknown) -consult for PT/OT/ROBOTIC MACHINE TENDER PRODUCTION-social work: Concerned patient is not safe to [...] unknown) (unknown) (unknown) (no date) (unknown) (unknown) [id number] (units unknown) (unknown) (unknown) (no date) (unknown) [...] (unknown) (no date) (unknown) (unknown) : 1935 Acct:[id number] (units unknown) (unknown) (unknown) (no date) (unknown) [...] unknown) (unknown) (unknown) (no date) (unknown) (unknown) [address] [address] (units unknown) (unknown) (unknown) (no date) (unknown) [...] History (Updated 06/17/22 @ 00:55 [facility] (units unknown) (unknown) (unknown) (no date) (unknown) (unknown) Medication Instructions Recorded Confirmed Type (units unknown) (unknown) (unknown) (no date) (unknown) (unknown) Meds (units unknown) (unknown) (unknown) (no date) (unknown) (unknown) [place] # (Auto) 900 (units unknown) (unknown) (unknown) (no date) (unknown) (unknown) [place] # (Auto) (units unknown) (unknown) (unknown) (no date) (unknown) (unknown) [place] % (Auto) 9.4 (units unknown) (unknown) (unknown) (no date) (unknown) (unknown) [place] % (Auto) (units unknown) (unknown) (unknown) (no [...] (Updated 06/16/22 @ 21:27 by Hawa Michael [facility]) (units unknown) (unknown) (unknown) (no date) (unknown) [...] (unknown) (no date) (unknown) (unknown) [facility] Specific [place] 1.020 (units unknown) (unknown) (unknown) (no date) (unknown) (unknown) [facility] [place] (units unknown) (unknown) (unknown) (no date) (unknown) [...] (unknown) (unknown) well as consult evaluations by PT/OT/ROBOTIC MACHINE TENDER PRODUCTION. (units unknown) (unknown) (unknown) (no date) (unknown) [...] unknown) (unknown) (unknown) (no date) (unknown) (unknown) [phone] (units unknown) (unknown) (unknown) (no date) (unknown) [...] unknown) (unknown) (unknown) (no date) (unknown) (unknown) [place] given there history of having a relationship [...] (unknown) (no date) (unknown) (unknown) : 1935 Acct:[id number] (units unknown) (unknown) (unknown) (no date) (unknown) (unknown) Date of Service: 06/16/22 (units unknown) (unknown) (unknown) (no date) (unknown) (unknown) Deep Vein Thrombosis/Pulmonar y Embolism Present on Admission: No (units unknown) (unknown) (unknown) (no date) (unknown) (unknown) Diagnosed at [facility] Emergency Department. Urine culture (units unknown) (unknown) [...] is followed by Dr. Weathers at the [facility] He did not (units unknown) (unknown) (unknown) [...] unknown) (unknown) (unknown) (no date) (unknown) (unknown) [address] [address] (units unknown) (unknown) (unknown) (no date) (unknown) [...] unknown) (unknown) (unknown) (no date) (unknown) (unknown) [place] # (Auto) 1100 H (units unknown) (unknown) (unknown) (no date) (unknown) (unknown) [place] # (Auto) (units unknown) (unknown) (unknown) (no date) (unknown) (unknown) [place] % (Auto) 13.3 (units unknown) (unknown) (unknown) (no date) (unknown) (unknown) [place] % (Auto) (units unknown) (unknown) (unknown) (no [...] (Updated 06/16/22 @ 21:27 by Hawa Michael [facility]) (units unknown) (unknown) (unknown) (no date) (unknown) (unknown) Suspect this reflected SIRS rather than sepsis. However, he does have evidence (units unknown) (unknown) (unknown) (no date) (unknown) (unknown) Temperature 96.3 F L (units unknown) (unknown) (unknown) (no date) (unknown) (unknown) They did they might prefer to proceed with care at the [facility] (units unknown) (unknown) (unknown) (no date) [...] (unknown) (no date) (unknown) (unknown) Ur Specific [place] 1.020 (units unknown) (unknown) (unknown) (no date) (unknown) (unknown) [facility] [place] (units unknown) (unknown) (unknown) (no date) (unknown) [...] (unknown) (unknown) infectious or inflammatory pulmonary opacities. Eizl-ss-wchwfbaf (units unknown) (unknown) (unknown) (no date) (unknown) [...] unknown) (unknown) (unknown) (no date) (unknown) (unknown) ozpfx-xwrxshg-bicr- left pleural effusions. There is additional note [...] (unknown) (unknown) (no date) (unknown) (unknown) the nursery school attendant regularly. (units unknown) (unknown) (unknown) (no date) [...] unknown) (unknown) (unknown) (no date) (unknown) (unknown) [id number] (units unknown) (unknown) (unknown) (no date) (unknown) [...] (unknown) (no date) (unknown) (unknown) : 1935 Acct:[id number] (units unknown) (unknown) (unknown) (no date) (unknown) [...] is followed by Dr. Weathers at the [facility] [place].? He did not (units unknown) (unknown) (unknown) [...] unknown) (unknown) (unknown) (no date) (unknown) (unknown) [address] [address] (units unknown) (unknown) (unknown) (no date) (unknown) [...] (Updated 06/17/22 @ 00:55 by Hawa Michael [facility]) (units unknown) (unknown) (unknown) (no date) (unknown) (unknown) [place] # (Auto) 1100 H (units unknown) (unknown) (unknown) (no date) (unknown) (unknown) [place] # (Auto) (units unknown) (unknown) (unknown) (no date) (unknown) (unknown) [place] % (Auto) 15.8 H (units unknown) (unknown) (unknown) (no date) (unknown) (unknown) [place] % (Auto) (units unknown) (unknown) (unknown) (no [...] (Updated 06/16/22 @ 21:27 by Hawa Michael [facility]) (units unknown) (unknown) (unknown) (no date) (unknown) [...] ago. He has had serial f/u w/a nursery school attendant at [facility] (units unknown) (unknown) (unknown) (no date) (unknown) [...] (unknown) (unknown) infectious or inflammatory pulmonary opacities.? Vowt-qw-qqwustta (units unknown) (unknown) (unknown) (no date) (unknown) [...] unknown) (unknown) (unknown) (no date) (unknown) (unknown) gsits-eaadgdx-gjmc- left pleural effusions.? There is additional note of the (units unknown) (unknown) (unknown) (no date) (unknown) (unknown) scalp approximately 2 years ago.? He describes having had a 7 an inch incision.? (units unknown) (unknown) (unknown) (no date) (unknown) (unknown) the nursery school attendant regularly. (units unknown) (unknown) (unknown) (no date) [...] unknown) (unknown) (unknown) (no date) (unknown) (unknown) [id number] (units unknown) (unknown) (unknown) (no date) (unknown) [...] unknown) (unknown) (unknown) (no date) (unknown) (unknown) SHIPPER/RECEIVER disease. (units unknown) (unknown) (unknown) (no date) [...] (unknown) (no date) (unknown) (unknown) : 1935 Acct:[id number] (units unknown) (unknown) (unknown) (no date) (unknown) (unknown) Date of Service: 06/16/22 (units unknown) (unknown) (unknown) (no date) (unknown) (unknown) Deep Vein Thrombosis/Pulmonar y Embolism Present on Admission: No (units unknown) (unknown) (unknown) (no date) (unknown) (unknown) Diagnosed at [facility] Emergency Department.? Urine culture (units unknown) (unknown) [...] unknown) (unknown) (unknown) (no date) (unknown) (unknown) [address] [address] (units unknown) (unknown) (unknown) (no date) (unknown) [...] unknown) (unknown) (unknown) (no date) (unknown) (unknown) [place] # (Auto) 1100 H (units unknown) (unknown) (unknown) (no date) (unknown) (unknown) [place] # (Auto) (units unknown) (unknown) (unknown) (no date) (unknown) (unknown) [place] % (Auto) 15.8 H (units unknown) (unknown) (unknown) (no date) (unknown) (unknown) [place] % (Auto) (units unknown) (unknown) (unknown) (no [...] (Updated 06/16/22 @ 21:27 by Hawa Michael [facility]) (units unknown) (unknown) (unknown) (no date) (unknown) [...] ago. He has had serial f/u w/a nursery school attendant (Dr. Reeder) at [facility] (units unknown) (unknown) (unknown) (no date) (unknown) [...] (unknown) (unknown) infectious or inflammatory pulmonary opacities.? Pzlm-zb-byvpazho (units unknown) (unknown) (unknown) (no date) (unknown) [...] unknown) (unknown) (unknown) (no date) (unknown) (unknown) zrlae-mshadtu-bbhg- left pleural effusions.? There is additional note [...] unknown) (unknown) (unknown) (no date) (unknown) (unknown) [id number] (units unknown) (unknown) (unknown) (no date) (unknown) [...] unknown) (unknown) (unknown) (no date) (unknown) (unknown) SHIPPER/RECEIVER disease. (units unknown) (unknown) (unknown) (no date) [...] (unknown) (no date) (unknown) (unknown) : 1935 Acct:[id number] (units unknown) (unknown) (unknown) (no date) (unknown) (unknown) Date of Service: 06/16/22 (units unknown) (unknown) (unknown) (no date) (unknown) (unknown) Deep Vein Thrombosis/Pulmonar y Embolism Present on Admission: No (units unknown) (unknown) (unknown) (no date) (unknown) (unknown) Diagnosed at [facility] Emergency Department.? Urine culture (units unknown) (unknown) [...] unknown) (unknown) (unknown) (no date) (unknown) (unknown) [address] [address] (units unknown) (unknown) (unknown) (no date) (unknown) [...] (Updated 06/17/22 @ 00:55 by Hawa Michael [facility]) (units unknown) (unknown) (unknown) (no date) (unknown) (unknown) [place] # (Auto) 1000 H (units unknown) (unknown) (unknown) (no date) (unknown) (unknown) [place] # (Auto) (units unknown) (unknown) (unknown) (no date) (unknown) (unknown) [place] % (Auto) 15.4 H (units unknown) (unknown) (unknown) (no date) (unknown) (unknown) [place] % (Auto) (units unknown) (unknown) (unknown) (no [...] (Updated 06/16/22 @ 21:27 by Hawa Michael [facility] (units unknown) (unknown) (unknown) (no date) (unknown) [...] unknown) (unknown) (unknown) (no date) (unknown) (unknown) [id number] (units unknown) (unknown) (unknown) (no date) (unknown) (unknown) 06/21/22 (units unknown) (unknown) (unknown) (no date) (unknown) (unknown) [address] [place] [address] (units unknown) (unknown) (unknown) (no date) (unknown) (unknown) Accession Number: [id number] (units unknown) (unknown) (unknown) (no date) (unknown) (unknown) Age/Sex: 86 / M Date of Service: (units unknown) (unknown) (unknown) (no date) (unknown) (unknown) [place] [address] (units unknown) (unknown) (unknown) (no date) (unknown) (unknown) Approved by: Johnathan Lane M.D. on 06/21/2022 at 15:07 (units unknown) (unknown) (unknown) (no date) (unknown) (unknown) Biopsy site: Posterior right lobe of the liver (units unknown) (unknown) (unknown) (no date) (unknown) (unknown) COMPARISON: [facility], CT, CT ABDOMEN PELVIS [facility], 06/16/2022, 21:22. (units unknown) (unknown) (unknown) (no date) (unknown) (unknown) CT Scan Report (units unknown) (unknown) (unknown) (no date) (unknown) (unknown) CT guidance, a core biopsy trocar and needle set was advanced to the biopsy (units unknown) (unknown) (unknown) (no date) (unknown) (unknown) Complications: None. (units unknown) (unknown) (unknown) (no date) (unknown) (unknown) : 1935 Acct:[id number] (units unknown) (unknown) (unknown) (no date) (unknown) [...] unknown) (unknown) (unknown) (no date) (unknown) (unknown) [facility] (units unknown) (unknown) (unknown) (no date) (unknown) [...] was brought to the CT suite and garage attendant spiral CT imaging was (units unknown) (unknown) [...] unknown) (unknown) (unknown) (no date) (unknown) (unknown) [id number] (units unknown) (unknown) (unknown) (no date) (unknown) [...] (unknown) (no date) (unknown) (unknown) : 1935 Acct:[id number] (units unknown) (unknown) (unknown) (no date) (unknown) (unknown) Date Patient Seen: 06/19/22 (units unknown) (unknown) (unknown) (no date) (unknown) (unknown) Date of Service: 06/16/22 (units unknown) (unknown) (unknown) (no date) (unknown) (unknown) Deep Vein Thrombosis/Pulmonar y Embolism Present on Admission: No (units unknown) (unknown) (unknown) (no date) (unknown) (unknown) Diagnosed at [facility] Emergency Department.? Urine culture (units unknown) (unknown) [...] unknown) (unknown) (unknown) (no date) (unknown) (unknown) [address] [address] (units unknown) (unknown) (unknown) (no date) (unknown) [...] (Updated 06/17/22 @ 00:55 by Hawa Michael [facility]) (units unknown) (unknown) (unknown) (no date) (unknown) (unknown) [place] # (Auto) 1000 H (units unknown) (unknown) (unknown) (no date) (unknown) (unknown) [place] # (Auto) (units unknown) (unknown) (unknown) (no date) (unknown) (unknown) [place] % (Auto) 15.4 H (units unknown) (unknown) (unknown) (no date) (unknown) (unknown) [place] % (Auto) (units unknown) (unknown) (unknown) (no [...] (Updated 06/16/22 @ 21:27 by Hawa Michael [facility]) (units unknown) (unknown) (unknown) (no date) (unknown) [...] unknown) (unknown) (unknown) (no date) (unknown) (unknown) [id number] (units unknown) (unknown) (unknown) (no date) (unknown) (unknown) 06/16/22 06/16/22 06/16/22 Range/Units (units unknown) (unknown) (unknown) (no date) (unknown) (unknown) 06/16/22 12:35 (units unknown) (unknown) (unknown) (no date) (unknown) (unknown) 06/16/22 Range/Units (units unknown) (unknown) (unknown) (no date) (unknown) (unknown) 06/16/22 (units unknown) (unknown) (unknown) (no date) (unknown) (unknown) 06/20/22 0759 (units unknown) (unknown) (unknown) (no date) (unknown) (unknown) [address] [place] [address] (units unknown) (unknown) (unknown) (no date) (unknown) [...] (unknown) (no date) (unknown) (unknown) Accession Number: [id number] ?? (units unknown) (unknown) (unknown) (no date) (unknown) (unknown) Accession Number: [id number] ?? (units unknown) (unknown) (unknown) (no date) (unknown) (unknown) Accession Number: [id number] ?? (units unknown) (unknown) (unknown) (no date) (unknown) (unknown) Acct:[id number] (units unknown) (unknown) (unknown) (no date) (unknown) [...] unknown) (unknown) (unknown) (no date) (unknown) (unknown) [place] [address] (units unknown) (unknown) (unknown) (no date) (unknown) [...] unknown) (unknown) (unknown) (no date) (unknown) (unknown) COMPARISON:[facility], CR, XR CHEST 1V, 06/16/2022, 12:43. (units [...] (unknown) (no date) (unknown) (unknown) : 1935 Acct:[id number] (units unknown) (unknown) (unknown) (no date) (unknown) (unknown) : 1935 (units unknown) (unknown) (unknown) (no date) (unknown) (unknown) Data collected from: Patient and and patient's underground foreman as well as ER (units unknown) (unknown) [...] (unknown) (no date) (unknown) (unknown) Documented By: ARNIEF (units unknown) (unknown) (unknown) (no date) (unknown) [...] unknown) (unknown) (unknown) (no date) (unknown) (unknown) [address] [address] (units unknown) (unknown) (unknown) (no date) (unknown) (unknown) [facility] (units unknown) (unknown) (unknown) (no date) (unknown) [...] date) (unknown) (unknown) Lungs and pleura:? Bilateral owct-fa-gyuandvl pleural effusions, slightly (units unknown) (unknown) (unknown) (no date) (unknown) (unknown) Lungs and pleura:? Low lung volumes.? Possible mild right and retrocardiac basal (units unknown) (unknown) (unknown) (no date) (unknown) (unknown) Lymph # (Auto) (8650-8816) /uL (units unknown) (unknown) (unknown) (no date) (unknown) (unknown) Lymph # (Auto) 400 L (5532-7140) /uL (units unknown) (unknown) (unknown) (no date) [...] (unknown) (unknown) (no date) (unknown) (unknown) MR#: [id number] (units unknown) (unknown) (unknown) (no date) (unknown) [...] unknown) (unknown) (unknown) (no date) (unknown) (unknown) [id number], (units unknown) (unknown) (unknown) (no date) (unknown) (unknown) Mode of arrival: Wheelchair (units unknown) (unknown) (unknown) (no date) (unknown) (unknown) [place] # (Auto) (0-900) /uL (units unknown) (unknown) (unknown) (no date) (unknown) (unknown) [place] # (Auto) 900 (0-900) /uL (units unknown) (unknown) (unknown) (no date) (unknown) (unknown) [place] % (Auto) (3-14) % (units unknown) (unknown) (unknown) (no date) (unknown) (unknown) [place] % (Auto) 9.4 (3-14) % (units unknown) [...] (no date) (unknown) (unknown) Neut # (Auto) (1616-1627) /uL (units unknown) (unknown) (unknown) (no date) (unknown) (unknown) Neut # (Auto) 8200 H (1110-1999) /uL (units unknown) (unknown) (unknown) (no date) [...] unknown) (unknown) (unknown) (no date) (unknown) (unknown) [facility] ER for evaluation of dark urine. CT [...] date) (unknown) (unknown) hands with strong equal motion and time study teacher 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 (units unknown) (unknown) (unknown) [...] (no date) (unknown) (unknown) spoke with patient's underground foreman and he was concern for patient's welfare [...] unknown) (unknown) (unknown) (no date) (unknown) (unknown) [id number] (units unknown) (unknown) (unknown) (no date) (unknown) (unknown) 06/20/22 (units unknown) (unknown) (unknown) (no date) (unknown) (unknown) [address] [place] [address] (units unknown) (unknown) (unknown) (no date) (unknown) (unknown) 1st rib, (units unknown) (unknown) (unknown) (no date) (unknown) (unknown) Accession Number: [id number] (units unknown) (unknown) (unknown) (no date) (unknown) (unknown) Additional findings: (units unknown) (unknown) (unknown) (no date) (unknown) (unknown) After the administration of intravenous contrast, 3.0 mm axial sections (units unknown) (unknown) (unknown) (no date) (unknown) (unknown) Age/Sex: 86 / M Date of Service: (units unknown) (unknown) (unknown) (no date) (unknown) (unknown) [place] [address] (units unknown) (unknown) (unknown) (no date) (unknown) (unknown) Approved by: Scott Puga M.D. on 06/20/2022 at 9:31 (units unknown) (unknown) (unknown) (no date) (unknown) (unknown) At least moderate cervical spine degenerative change (units unknown) (unknown) (unknown) (no date) (unknown) (unknown) Bones: There is a soft tissue mass seen associated with the left posterior (units unknown) (unknown) (unknown) (no date) (unknown) (unknown) COMPARISON: [facility], CT, CT CHEST W [facility], 06/16/2022, 14:03. [place] (units unknown) (unknown) (unknown) (no date) (unknown) (unknown) CT HEAD/BRAIN WO [facility], 06/16/2022, 14:03. (units unknown) (unknown) (unknown) (no date) (unknown) (unknown) CT Scan Report (units unknown) (unknown) (unknown) (no date) (unknown) (unknown) : 1935 Acct:[id number] (units unknown) (unknown) (unknown) (no date) (unknown) [...] unknown) (unknown) (unknown) (no date) (unknown) (unknown) [facility] (units unknown) (unknown) (unknown) (no date) (unknown) [...] unknown) (unknown) (unknown) (no date) (unknown) (unknown) [id number] (units unknown) (unknown) (unknown) (no date) (unknown) [...] (unknown) (no date) (unknown) (unknown) : 1935 Acct:[id number] (units unknown) (unknown) (unknown) (no date) (unknown) [...] unknown) (unknown) (unknown) (no date) (unknown) (unknown) [address] [address] (units unknown) (unknown) (unknown) (no date) (unknown) [...] (Updated 06/17/22 @ 00:55 by Hawa Michael [facility]) (units unknown) (unknown) (unknown) (no date) (unknown) (unknown) [place] # (Auto) 1000 H (units unknown) (unknown) (unknown) (no date) (unknown) (unknown) [place] % (Auto) 14.7 H (units unknown) (unknown) [...] (Updated 06/16/22 @ 21:27 by Hawa Michael [facility]) (units unknown) (unknown) (unknown) (no date) (unknown) [...] unknown) (unknown) (unknown) (no date) (unknown) (unknown) [id number] (units unknown) (unknown) (unknown) (no date) (unknown) [...] (unknown) (no date) (unknown) (unknown) : 1935 Acct:[id number] (units unknown) (unknown) (unknown) (no date) (unknown) (unknown) Date Patient Seen: 06/20/22 (units unknown) (unknown) (unknown) (no date) (unknown) (unknown) Date of Service: 06/16/22 (units unknown) (unknown) (unknown) (no date) (unknown) (unknown) Deep Vein Thrombosis/Pulmonar y Embolism Present on Admission: No (units unknown) (unknown) (unknown) (no date) (unknown) (unknown) Diagnosed at [facility] Emergency Department.? Urine culture (units unknown) (unknown) [...] unknown) (unknown) (unknown) (no date) (unknown) (unknown) [address] [address] (units unknown) (unknown) (unknown) (no date) (unknown) [...] (Updated 06/17/22 @ 00:55 by Hawa Michael [facility]) (units unknown) (unknown) (unknown) (no date) (unknown) (unknown) [place] # (Auto) 1000 H (units unknown) (unknown) (unknown) (no date) (unknown) (unknown) [place] % (Auto) 14.7 H (units unknown) (unknown) [...] date) (unknown) (unknown) over the last few months.?Horse Trekking Guide consulted. (units unknown) (unknown) (unknown) (no date) (unknown) (unknown) today; this time is exclusive of procedural time. (units unknown) (unknown) Result panel 267 (unknown) (no date) (unknown) (unknown) (no value) (units unknown) 34574-9 (unknown) (no date) (unknown) (unknown) (no value) (units unknown) 38411-7 (unknown) (no date) (unknown) (unknown) (no value) (units unknown) 46917-7 (unknown) (no date) (unknown) (unknown) (no value) (units unknown) 07490-8 (unknown) (no date) (unknown) (unknown) (no value) (units unknown) 16647-0 (unknown) (no date) (unknown) (unknown) (no value) (units unknown) 33936-7 (unknown) (no date) (unknown) (unknown) (no value) [...] (no date) (unknown) (unknown) Comment: (units unknown) 45871-9 (unknown) (no date) (unknown) (unknown) Comment: (units unknown) (unknown) Result panel 268 (unknown) (no date) (unknown) (unknown) (no value) (units unknown) (unknown) (unknown) (no date) (unknown) (unknown) (past 8 hours): (units unknown) (unknown) (unknown) (no date) (unknown) (unknown) [id number] (units unknown) (unknown) (unknown) (no date) (unknown) [...] (unknown) (no date) (unknown) (unknown) : 1935 Acct:[id number] (units unknown) (unknown) (unknown) (no date) (unknown) [...] unknown) (unknown) (unknown) (no date) (unknown) (unknown) [address] [address] (units unknown) (unknown) (unknown) (no date) (unknown) (unknown) Labs (units unknown) (unknown) (unknown) (no date) (unknown) (unknown) Medical History (Updated 06/17/22 @ 00:55 by Hawa Michael [facility]) (units unknown) (unknown) (unknown) (no date) (unknown) [...] (Updated 06/16/22 @ 21:27 by Hawa Michael [facility]) (units unknown) (unknown) (unknown) (no date) (unknown) [...] unknown) (unknown) (unknown) (no date) (unknown) (unknown) [id number] (units unknown) (unknown) (unknown) (no date) (unknown) [...] (unknown) (no date) (unknown) (unknown) : 1935 Acct:[id number] (units unknown) (unknown) (unknown) (no date) (unknown) (unknown) Date Patient Seen: 06/20/22 (units unknown) (unknown) (unknown) (no date) (unknown) (unknown) Date of Service: 06/16/22 (units unknown) (unknown) (unknown) (no date) (unknown) (unknown) Deep Vein Thrombosis/Pulmonar y Embolism Present on Admission: No (units unknown) (unknown) (unknown) (no date) (unknown) (unknown) Diagnosed at [facility] Emergency Department.? Urine culture (units unknown) (unknown) [...] unknown) (unknown) (unknown) (no date) (unknown) (unknown) [address] [address] (units unknown) (unknown) (unknown) (no date) (unknown) [...] (Updated 06/16/22 @ 21:27 by Hawa Michael [facility]) (units unknown) (unknown) (unknown) (no date) (unknown) [...] date) (unknown) (unknown) over the last few months.?Horse Trekking Guide consulted. (units unknown) (unknown) (unknown) (no date) [...] (unknown) (unknown) (no date) (unknown) (unknown) [address] [place] [address] (units unknown) (unknown) (unknown) (no date) (unknown) (unknown) [address] [place] [address] [id number] (units unknown) (unknown) (unknown) (no date) (unknown) (unknown) [id number] (units unknown) (unknown) (unknown) (no date) (unknown) (unknown) [place] [address] (units unknown) (unknown) (unknown) (no date) (unknown) (unknown) As part of routine senior quality manager, Dr. Toussaint has reviewed this case (units [...] unknown) (unknown) (unknown) (no date) (unknown) (unknown) [facility] (units unknown) (unknown) (unknown) (no date) (unknown) (unknown) [facility] Accession Number: [id number] (units unknown) (unknown) (unknown) (no date) (unknown) (unknown) LIVER TISSUE: (units unknown) (unknown) (unknown) (no date) (unknown) (unknown) [facility] Cytology (units unknown) (unknown) (unknown) (no date) (unknown) (unknown) Liver, Needle Core Biopsies: (units unknown) (unknown) (unknown) (no date) (unknown) (unknown) MD Donovan Mckenzie MD Phone: [phone] (units unknown) (unknown) (unknown) (no date) (unknown) (unknown) Dictating Dr: Tommy Molina MD (units unknown) (unknown) (unknown) (no date) (unknown) (unknown) MRV 06/23/2022 1317 Local (units unknown) (unknown) (unknown) (no date) (unknown) (unknown) Material submitted: . (units unknown) (unknown) (unknown) (no date) (unknown) (unknown) Tommy Molina MD, PhD, Pathologist (units unknown) (unknown) (unknown) (no date) (unknown) (unknown) NPI- [id number] (units unknown) (unknown) (unknown) (no date) (unknown) [...] unknown) (unknown) (unknown) (no date) (unknown) (unknown) [id number] (units unknown) (unknown) (unknown) (no date) (unknown) [...] (unknown) (no date) (unknown) (unknown) [place] [facility] [place] [facility] Worker Routine (units unknown) (unknown) (unknown) (no date) (unknown) (unknown) Consult to Occupational Therapy Evaluate + Treat (units unknown) (unknown) (unknown) (no date) (unknown) (unknown) Consult to Physical Therapy Evaluate + Treat (units unknown) (unknown) (unknown) (no date) (unknown) (unknown) Consult to Physician Routine (units unknown) (unknown) (unknown) (no date) (unknown) (unknown) Consult to Poultry Process Worker Routine (units unknown) (unknown) (unknown) (no date) (unknown) (unknown) Consult to Speech Therapy Evaluate + Treat (units unknown) (unknown) (unknown) (no date) (unknown) (unknown) Consulting Provider: Aletha Turner (units unknown) (unknown) (unknown) (no date) (unknown) (unknown) Consults: (units unknown) (unknown) (unknown) (no date) (unknown) (unknown) Continued (units unknown) (unknown) (unknown) (no date) (unknown) (unknown) : 1935 Acct:[id number] (units unknown) (unknown) (unknown) (no date) (unknown) [...] unknown) (unknown) (unknown) (no date) (unknown) (unknown) [address] [address] (units unknown) (unknown) (unknown) (no date) (unknown) (unknown) Labs (units unknown) (unknown) (unknown) (no date) (unknown) (unknown) Lucien Lan MD [Primary Care Provider] (units unknown) (unknown) (unknown) (no date) (unknown) (unknown) ROBOTIC MACHINE TENDER PRODUCTION Consult needed for:: [facility] Res Need (units unknown) (unknown) (unknown) (no date) (unknown) (unknown) Medical History (Updated 06/17/22 @ 00:[facility] (units unknown) (unknown) (unknown) (no date) (unknown) [...] (unknown) Reason For Exam: Set up HH RN/PT/OT/DIRECTOR PHARMACEUTICAL for discharge home (units unknown) (unknown) (unknown) [...] History (Updated 06/16/22 @ 21:27 [facility] (units unknown) (unknown) (unknown) (no date) (unknown) [...] unknown) (unknown) (unknown) (no date) (unknown) (unknown) [id number] (units unknown) (unknown) (unknown) (no date) (unknown) [...] (unknown) (no date) (unknown) (unknown) [place] [facility] [place] Process Worker Routine (units unknown) (unknown) (unknown) (no date) (unknown) (unknown) Consult to Occupational Therapy Evaluate + Treat (units unknown) (unknown) (unknown) (no date) (unknown) (unknown) Consult to Physical Therapy Evaluate + Treat (units unknown) (unknown) (unknown) (no date) (unknown) (unknown) Consult to Physician Routine (units unknown) (unknown) (unknown) (no date) (unknown) (unknown) Consult to Poultry Process Worker Routine (units unknown) (unknown) (unknown) (no date) (unknown) (unknown) Consult to Speech Therapy Evaluate + Treat (units unknown) (unknown) (unknown) (no date) (unknown) (unknown) Consulting Provider: Aletha Turner (units unknown) (unknown) (unknown) (no date) (unknown) (unknown) Consults: (units unknown) (unknown) (unknown) (no date) (unknown) (unknown) Continued (units unknown) (unknown) (unknown) (no date) (unknown) (unknown) : 1935 Acct:[id number] (units unknown) (unknown) (unknown) (no date) (unknown) (unknown) Date Patient Seen: 06/22/22 (units unknown) (unknown) (unknown) (no date) (unknown) (unknown) Date of Service: 06/16/22 (units unknown) (unknown) (unknown) (no date) (unknown) (unknown) Date of admission: (units unknown) (unknown) (unknown) (no date) (unknown) (unknown) Deep Vein Thrombosis/Pulmonar y Embolism Present on Admission: No (units unknown) (unknown) (unknown) (no date) (unknown) (unknown) Diagnosed at [facility] Emergency Department.? Urine culture (units unknown) (unknown) [...] unknown) (unknown) (unknown) (no date) (unknown) (unknown) [address] [address] (units unknown) (unknown) (unknown) (no date) (unknown) (unknown) Labs (units unknown) (unknown) (unknown) (no date) (unknown) (unknown) Lucien Lan MD [Primary Care Provider] (units unknown) (unknown) (unknown) (no date) (unknown) (unknown) MNA 10 (at risk for malnutrition), diet recall suggesting inadequate (units unknown) (unknown) (unknown) (no date) (unknown) (unknown) ROB[employer] MACHINE TENDER PRODUCTION Consult needed for:: Community Health Res Need [...] (unknown) Reason For Exam: Set up HH RN/PT/OT/DIRECTOR PHARMACEUTICAL for discharge home (units unknown) (unknown) (unknown) [...] (Updated 06/16/22 @ 21:27 by Hawa Michael [facility]) (units unknown) (unknown) (unknown) (no date) (unknown) [...] date) (unknown) (unknown) over the last few months.?Horse Trekking Guide consulted. (units unknown) (unknown) (unknown) (no date) [...] unknown) (unknown) (unknown) (no date) (unknown) (unknown) [id number] (units unknown) (unknown) (unknown) (no date) (unknown) [...] (unknown) (no date) (unknown) (unknown) Consult to [facility] [place] Process Worker Routine (units unknown) (unknown) (unknown) (no date) (unknown) (unknown) Consult to Occupational Therapy Evaluate + Treat (units unknown) (unknown) (unknown) (no date) (unknown) (unknown) Consult to Physical Therapy Evaluate + Treat (units unknown) (unknown) (unknown) (no date) (unknown) (unknown) Consult to Physician Routine (units unknown) (unknown) (unknown) (no date) (unknown) (unknown) Consult to Poultry Process Worker Routine (units unknown) (unknown) (unknown) (no date) (unknown) (unknown) Consult to Speech Therapy Evaluate + Treat (units unknown) (unknown) (unknown) (no date) (unknown) (unknown) Consulting Provider: Aletha Turner (units unknown) (unknown) (unknown) (no date) (unknown) (unknown) Consults: (units unknown) (unknown) (unknown) (no date) (unknown) (unknown) Continued (units unknown) (unknown) (unknown) (no date) (unknown) (unknown) : 1935 Acct:[id number] (units unknown) (unknown) (unknown) (no date) (unknown) [...] unknown) (unknown) (unknown) (no date) (unknown) (unknown) [address] [place] [address] (units unknown) (unknown) (unknown) (no date) (unknown) (unknown) Labs (units unknown) (unknown) (unknown) (no date) (unknown) (unknown) Lucien Lan MD [Primary Care Provider] (units unknown) (unknown) (unknown) (no date) (unknown) (unknown) MNA 10 (at risk for malnutrition), diet recall suggesting inadequate (units unknown) (unknown) (unknown) (no date) (unknown) (unknown) ROB[employer] MACHINE TENDER [employer]ODUCTION Consult needed for:: Community Health Res Need (units unknown) (unknown) (unknown) (no date) (unknown) (unknown) Medical History (Updated 06/17/22 @ 00:55 [facility] (units unknown) (unknown) (unknown) (no date) (unknown) [...] (unknown) Reason For Exam: Set up HH RN/PT/OT/DIRECTOR PHARMACEUTICAL for discharge home (units unknown) (unknown) (unknown) [...] (Updated 06/16/22 @ 21:27 by Hawa Michael [facility]) (units unknown) (unknown) (unknown) (no date) (unknown) [...] unknown) (unknown) (unknown) (no date) (unknown) (unknown) [id number] (units unknown) (unknown) (unknown) (no date) (unknown) [...] (unknown) (no date) (unknown) (unknown) Consult to [facility] [place] Process Worker Routine (units unknown) (unknown) (unknown) (no date) (unknown) (unknown) Consult to Occupational Therapy Evaluate + Treat (units unknown) (unknown) (unknown) (no date) (unknown) (unknown) Consult to Physical Therapy Evaluate + Treat (units unknown) (unknown) (unknown) (no date) (unknown) (unknown) Consult to Physician Routine (units unknown) (unknown) (unknown) (no date) (unknown) (unknown) Consult to Poultry Process Worker Routine (units unknown) (unknown) (unknown) (no date) (unknown) (unknown) Consult to Speech Therapy Evaluate + Treat (units unknown) (unknown) (unknown) (no date) (unknown) (unknown) Consulting Provider: Aletha Turner (units unknown) (unknown) (unknown) (no date) (unknown) (unknown) Consults: (units unknown) (unknown) (unknown) (no date) (unknown) (unknown) Continued (units unknown) (unknown) (unknown) (no date) (unknown) (unknown) : 1935 Acct:[id number] (units unknown) (unknown) (unknown) (no date) (unknown) [...] unknown) (unknown) (unknown) (no date) (unknown) (unknown) [address] [address] (units unknown) (unknown) (unknown) (no date) (unknown) (unknown) Labs (units unknown) (unknown) (unknown) (no date) (unknown) (unknown) Lucien Lan MD [Primary Care Provider] (units unknown) (unknown) (unknown) (no date) (unknown) (unknown) MNA 10 (at risk for malnutrition), diet recall suggesting inadequate (units unknown) (unknown) (unknown) (no date) (unknown) (unknown) ROB[employer] MACHINE TENDER [employer]ODUCTION Consult needed for:: Community Health Res Need [...] (unknown) Reason For Exam: Set up HH RN/PT/OT/DIRECTOR PHARMACEUTICAL for discharge home (units unknown) (unknown) (unknown) [...] (Updated 06/16/22 @ 21:27 by Hawa Michael [facility] (units unknown) (unknown) (unknown) (no date) (unknown) [...] facility 2022-06-16 00:00 Never smoked tobacco (finding) [facility] 2022-06-16 00:00 Smoker (finding) [facility] Vital Signs date measurement value [...]
--- NOTE | 2022-09-13 18:55 | ED Physician Documentation ---
History of Present Illness - Stated complaint Stated Complaint: PULLLED OUT MIDLINE I/V - Chief complaint Chief Complaint: General - History obtained from History obtained from: Family - Additonal information Additional information: This is an 87-year-old male with a complex past medical history who was recently discharged from [facility] where he was admitted for E. coli bacteremia. He was discharged home with a midline catheter for for an additional 4 weeks of antibiotics of which she has about 3 weeks left. He has some dementia and confusion and pulled out his PICC line today after receiving his dose of antibiotics around 330 this afternoon. is unsure of the name of the antibiotic but it is dosed every 24 hours. She called in the IV infusion center who advised him to come to the ER. He has no other new concerns today. PD PAST MEDICAL HISTORY - Past Medical History Past Medical History: Yes Cardiovascular: Hypertension, High cholesterol, Pulmonary embolism, Atrial fibrillation, Other Respiratory: Asthma Neuro: Dementia Endocrine/Autoimmune: None GI: GERD (w a UMER in 2002), Diverticulitis : Benign prostate hypertrophy (w LUTs, s/p TURP then dilation of stricture then TUR of stricture), Incontinence, Nocturia, Kidney stones, Other (erecctile dysfunction, balanitis) HEENT: Other ([place]) Psych: None Musculoskeletal: Osteoarthritis, Chronic back pain Derm: None, Other - Past Surgical History Past Surgical History: Yes General: Appendectomy, Colonoscopy, EGD, Other Cardiovascular: Pacemaker HEENT: Cataracts Derm: Skin cancer surgery - Present Medications Home Medications: Ambulatory Orders Medication Instructions Recorded Confirmed Apixaban [Eliquis] 5 mg PO BID 07/08/22 08/11/22 Gabapentin [Neurontin] 300 mg PO BID 07/08/22 08/11/22 Binimetinib [Mektovi] 30 mg PO BID 07/09/22 08/11/22 Encorafenib [Braftovi] 300 mg PO DAILY 07/09/22 08/11/22 Fluticasone 44 Mcg [Flovent] 2 puffs INH BID 07/16/22 08/11/22 Acetaminophen [Tylenol] 500 mg PO Q4HR PRN tab 07/28/22 08/11/22 Furosemide [Lasix] 20 mg PO MOWEFR #15 tab 07/28/22 08/11/22 Multivitamin W/Minerals [Theragran 1 tab PO DAILYWM #30 tab 07/28/22 08/11/22 M] Nystatin [Nystop] 1 applic TOP BID #15 gm 07/28/22 08/11/22 Potassium Chloride [Klor-Con] 20 meq PO MOWEFR #15 packet 07/28/22 08/11/22 Tamsulosin [Flomax] 0.4 mg PO DAILY #30 cap 07/28/22 08/11/22 oxyCODONE [Roxicodone] 2.5 - 5 mg PO Q8H PRN #10 tablet 08/11/22 MDD 6 - Allergies Allergies/Adverse Reactions: Allergies Allergy/AdvReac Type Severity Reaction Status Date / Time pneumococcal vaccine Allergy Hives Verified 09/13/22 18:26 [From Prevestevan 13 (PF)] - Social History Does the pt smoke?: No Smoking Status: Never smoker Does the pt drink ETOH?: Yes Does the pt have substance abuse?: No - Immunizations Immunizations are current?: Yes - POLST Patient has POLST: No POLST Status: DNR (per his who has advanced directives at home) PD ED PE NORMAL - Vitals Vital signs reviewed: Yes - General General: Alert and oriented X 3, No acute distress, Other (Patient appears frail and thin) - Derm Derm: Warm and dry, Other (Right upper arm midline site without erythema or swelling, no active bleeding) Results - Vitals Vitals: Vital Signs - 24 hr 09/13/22 18:15 Temperature 36.7 C Heart Rate 45 L Respiratory 18 Rate Blood Pressure 122/59 L O2 Saturation 95 Oxygen O2 Source Room air PD Medical Decision Making - ED course Complexity details: d/w patient, d/w family ED course: Patient presented after accidentally pulling out his midline catheter after he received his IV antibiotics this afternoon. He will need replacement of the midline as he has another 3 weeks of IV antibiotics. He does not need a central line or PICC line as he is only receiving antibiotics through this. I have discussed with the NURSE ORTHOPEDIC industrial relations analyst and patient can return tomorrow at 10 AM to have a new midline placed. I discussed this with patient and his and they are agreeable to return at 10 AM tomorrow for this procedure. Instructions have been provided. Patient was advised to come with the information with of who prescribes his antibiotics as well. Departure - Departure Disposition: 01 Home, Self Care Clinical Impression: Encounter for intravenous line placement Condition: Good Comments: Please return at 10 AM tomorrow to have a new IV catheter placed in the arm.
== END 2022-09-13 18:57 | disposition home or self-care (01) ==
LOC: ED 18:13
DX: T82.524A Displacement of infusion catheter, initial encounter (principal); F03.90 Unspecified dementia, unspecified severity, without behavioral disturbance, psychotic disturbance, mood disturbance, and anxiety; I10 Essential (primary) hypertension; I48.91 Unspecified atrial fibrillation; Z79.01 Long term (current) use 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s
CPT/HCPCS: 99284; 99285

== ENCOUNTER 2022-09-14 10:00 | Day surgery (SDC) | payer MEDICARE, OTHER ==
[2022-09-14 10:17] VITALS: BP 124/95
--- NOTE | 2022-09-14 10:51 | ANESTHESIA ---
Pre-Anesthesia VS, & Labs - Diagnosis infectious endocarditis requiring long-term Abx - Procedure Midline Vital Signs: Temp Pulse Resp BP Pulse Ox O2 Flow Rate 36..0 C L 64 14 124/95 H 92 09/14/22 10:14 09/14/22 10:14 09/14/22 10:14 09/14/22 10:14 09/14/22 10:14 Height: 6 ft - NPO Other (2 hrs) Home Medications and Allergies Apixaban [Eliquis] 5 mg PO BID 07/08/22 Gabapentin [Neurontin] 300 mg PO BID 07/08/22 Binimetinib [Mektovi] 30 mg PO BID 07/09/22 Encorafenib [Braftovi] 300 mg PO DAILY 07/09/22 Fluticasone 44 Mcg [Flovent] 2 puffs INH BID 07/16/22 Allergies/Adverse Reactions: Allergies Allergy/AdvReac Type Severity Reaction Status Date / Time pneumococcal vaccine Allergy Hives Verified 09/14/22 10:23 [From Prevnar 13 (PF)] Anes History & Medical History - Anesthetic History Anesthesia Complications: reports: No previous complications Family history of Anesthesia Complications: Denies Family history of Malignant Hyperthermia: Denies - Medical History Cardiovascular: reports: Hypertension, High cholesterol, Pulmonary embolism, Atrial fibrillation, Other Pulmonary: reports: Asthma Gastrointestinal: reports: GERD (w a UMER in 2002), Diverticulitis Urinary: reports: Benign prostate hypertrophy (w LUTs, s/p TURP then dilation of stricture then TUR of stricture), Incontinence, Nocturia, Kidney stones, Other (erecctile dysfunction, balanitis) Neuro: reports: Dementia Musculoskeletal: reports: Osteoarthritis, Chronic back pain Endocrine/Autoimmune: reports: None Skin: reports: None, Other Smoking Status: Never smoker History of Cancer?: Yes - Surgical History General: reports: Appendectomy, Colonoscopy, EGD, Other Eyes Ears Nose Throat (EENT): reports: Cataracts Cardiothoracic: reports: Pacemaker Dermatologic: reports: Skin cancer surgery Exam General: Alert, Oriented x3, Cooperative Neck Mobility: Normal Mallampati classification: I Thyromental Distance: 4-6 cm Respiratory: Lungs clear Plan Anesthesia Type: MAC Consent for Procedure(s) Verified and Reviewed: Yes Code Status: Attempt Resuscitation ASA classification: 4-Incapacitating disease Is this case an emergency?: No
--- NOTE | 2022-09-14 10:57 | ANESTHESIA PROCEDURE NOTE ---
Anesth Central Line Template - Central Line Central Line Preparation: Consent Obtained Central line location: Right Basilic Central line type: PICC Single Lumen Central line catheter tip site resides: Superior vena cava (SVC) Central line aftercare: Secured, Placement confirmed, No pneumothorax, No complications, Bundle checklist complete, Pt tolerated well
[2022-09-14] MEDS ORDERED: SODIUM CHLORIDE 0.9% 10 ML VIAL IVP ONE (11:23)
--- NOTE | 2022-09-14 11:25 | XRAY Report ---
PROCEDURE: Chest for Line Placement INDICATIONS: PICC insertion TECHNIQUE: One view of the chest was acquired. COMPARISON: Chest x-ray, 09/08/2022. FINDINGS: Surgical changes and devices: None. Lungs and pleura: No pleural effusions or pneumothorax. Lungs are clear. Mediastinum: Mediastinal contours appear normal. Heart size is normal. Bones and chest wall: No suspicious bony lesions. Overlying soft tissues appear unremarkable. IMPRESSION: No acute cardiopulmonary process. Reviewed by: Brooklynn Mitchell MD on 09/14/2022 11:23 AM PDT Approved by: Brooklynn Mitchell MD on 09/14/2022 11:23 AM PDT Station ID: [id number]
--- NOTE | 2022-09-14 11:45 | CONSULTATION NOTE ---
Consultation Report: Midline difficult to flush, line repositioned until it is easier to aspirate and flushes easily. Pulled back 6cm and secured at 34cm. New port CXR shows Midline still in good position
--- NOTE | 2022-09-14 11:48 | XRAY Report ---
PROCEDURE: Chest for Line Placement INDICATIONS: PICC readjustment. TECHNIQUE: One view of the chest was acquired. COMPARISON: Chest x-ray, 09/14/2022. FINDINGS: Surgical changes and devices: There is a right PICC with the tip projecting to the area of the right apex, presumably at the brachiocephalic confluence. Lungs and pleura: No pleural effusions or pneumothorax. Lungs are clear. Mediastinum: Mediastinal contours appear normal. Heart size is normal. Bones and chest wall: No suspicious bony lesions. Overlying soft tissues appear unremarkable. IMPRESSION: The right PICC tip is in the area of the right apex, probably at the brachiocephalic confluence. Reviewed by: Brooklynn Mitchell MD on 09/14/2022 11:47 AM PDT Approved by: Brooklynn Mitchell MD on 09/14/2022 11:47 AM PDT Station ID: [id number]
== END 2022-09-14 10:01 | disposition home or self-care (01) ==
LOC: SDS 10:00
PROVIDERS: ATTEND Nurse Anesthetist, Certified Registered
DX: R78.81 Bacteremia (principal); I48.91 Unspecified atrial fibrillation; Z86.711 Personal history of pulmonary embolism; Z79.01 Long term (current) use 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s
CPT/HCPCS: 36569; C1751

== ENCOUNTER 2022-10-05 16:31 | Emergency (ER) | payer MEDICARE, OTHER ==
[2022-10-05] MEDS ORDERED: TETANUS/DIPHTHERIA/PERTUSSIS 0.5 ML SYRINGE IM ONE (16:47)
--- NOTE | 2022-10-05 16:49 | ED Physician Documentation ---
PD HPI HEAD INJURY - Stated complaint Stated Complaint: HEAD LAC - Chief complaint Chief Complaint: Trauma Hd/Nk - History obtained from History obtained from: Patient, Family - Additional information Additional information: 87-year-old gentleman with recent multiple admissions for E. coli bacteremia had a slip and fall while in the yard just prior to arrival. He is on Eliquis. He hit his head with scrapes on the head and right forearm. Tetanus status is unknown. No loss of consciousness. He denies headache. He arrives through the front door by private vehicle. PD PAST MEDICAL HISTORY - Past Medical History Cardiovascular: Hypertension, High cholesterol, Pulmonary embolism, Atrial fibrillation, Other Respiratory: Asthma Neuro: Dementia Endocrine/Autoimmune: None GI: GERD (w a UMER in 2002), Diverticulitis : Benign prostate hypertrophy (w LUTs, s/p TURP then dilation of stricture then TUR of stricture), Incontinence, Nocturia, Kidney stones, Other (erecctile dysfunction, balanitis) HEENT: Other ([place]) Psych: None Musculoskeletal: Osteoarthritis, Chronic back pain Derm: None, Other - Past Surgical History Past Surgical History: Yes General: Appendectomy, Colonoscopy, EGD, Other Cardiovascular: Pacemaker HEENT: Cataracts Derm: Skin cancer surgery - Present Medications Home Medications: Ambulatory Orders Medication Instructions Recorded Confirmed Apixaban [Eliquis] 5 mg PO BID 07/08/22 08/11/22 Gabapentin [Neurontin] 300 mg PO BID 07/08/22 08/11/22 Binimetinib [Mektovi] 30 mg PO BID 07/09/22 08/11/22 Encorafenib [Braftovi] 300 mg PO DAILY 07/09/22 08/11/22 Fluticasone 44 Mcg [Flovent] 2 puffs INH BID 07/16/22 08/11/22 Acetaminophen [Tylenol] 500 mg PO Q4HR PRN tab 07/28/22 08/11/22 Furosemide [Lasix] 20 mg PO MOWEFR #15 tab 07/28/22 08/11/22 Multivitamin W/Minerals [Theragran 1 tab PO DAILYWM #30 tab 07/28/22 08/11/22 M] Nystatin [Nystop] 1 applic TOP BID #15 gm 07/28/22 08/11/22 Potassium Chloride [Klor-Con] 20 meq PO MOWEFR #15 packet 07/28/22 08/11/22 Tamsulosin [Flomax] 0.4 mg PO DAILY #30 cap 07/28/22 08/11/22 oxyCODONE [Roxicodone] 2.5 - 5 mg PO Q8H PRN #10 tablet 08/11/22 MDD 6 - Allergies Allergies/Adverse Reactions: Allergies Allergy/AdvReac Type Severity Reaction Status Date / Time pneumococcal vaccine Allergy Hives Verified 09/14/22 10:23 [From Prevestevan 13 (PF)] - Social History Does the pt smoke?: No Smoking Status: Never smoker Does the pt drink ETOH?: Yes Does the pt have substance abuse?: No - Immunizations Immunizations are current?: Yes - POLST Patient has POLST: No POLST Status: DNR (per his who has advanced directives at home) PD ED PE NORMAL - Vitals Vital signs reviewed: Yes - General General: Other (Mild confusion, chronic but alert and oriented to person and place and events.) - HEENT HEENT: PERRL, EOMI, Other (Abrasion right forehead) - Neck Neck: Supple, no meningeal sign, No bony TTP - Derm Derm: Normal color, Warm and dry - Extremities Extremities: Other (2 skin tears over the dorsal right forearm, all major joints were ranged and nontender.) - Neuro Eye Opening: Spontaneous Motor: Obeys Commands Verbal: Confused (mild, chronic) GCS Score: 14 Results - Vitals Vitals: Vital Signs - 24 hr 10/05/22 16:35 Temperature 36.8 C Heart Rate 65 Respiratory 16 Rate Blood Pressure 142/62 H O2 Saturation 100 Oxygen O2 Source Room air - Rads (name of study) CT of the head and cervical spine are without acute trauma Relevant Findings:: Final report received, EMP independent interpretation of test Procedures - Laceration (location) forehead Length in cm: 3 Wound type: Stellate, Superficial Wound preparation: Irrigated copiously NS Skin layer closure: Dermabond Other: Tetanus booster given r forearm x 2 Length in cm: 5 Wound type: Superficial (2 skin tears) Wound preparation: Irrigated copiously NS Skin layer closure: Dermabond, Steri strips Other: Tetanus booster given Departure - Departure Disposition: 01 Home, Self Care Clinical Impression: Ground-level fall, Adequate anticoagulation on anticoagulant therapy Facial abrasion Qualifiers: Encounter type: initial encounter Qualified Code(s): S00.81XA - Abrasion of oth er part of head, initial encounter Head injury Qualifiers: Encounter type: initial encounter Qualified Code(s): S09.90XA - Unspecified injury of head, initial encounter Laceration of right forearm Qualifiers: Encounter type: initial encounter Qualified Code(s): S51.811A - Laceration without foreign body of right forearm, initial encounter Condition: Good Record reviewed to determine appropriate education?: Yes Instructions: ED Head Injury Closed, ED Laceration Facial Skin Glue, ED Laceration Ext Skin Glue Comments: Note for your records that she received a Tdap shot today. Follow-up with your primary care physician, next available appointment. Return for new or worsening symptoms.
--- OUTSIDE RECORDS SUMMARY | 2022-10-05 16:49 | EXTERNAL MEDICAL SUMMARY RPT | Continuity of Care Document ---
Author Name Unknown Address [address] [place] [address] Phone Organization [facility] Address [address] [place] [address] Phone Care Team Providers Care Community Engagement Coordinator Name Role Phone Unavailable Unavailable Unavailable Lucien Lan Unavailable Unavailable Medications date description facility 2022-09-19 00:00 Oxycodone [facility] 2022-09-19 00:00 Potassium Chloride [facility] 2022-09-19 00:00 Furosemide [facility] 2022-09-19 00:00 Tamsulosin [facility] Problems date description facility 2022-09-21 12:03 Urinary tract infection, site n ot specified [facility] 2022-09-22 00:50 Urinary tract infection, site n ot specified [facility] 2022-09-22 13:51 Urinary tract infection, site n ot specified [facility] 2022-09-26 13:23 Urinary tract infection, site n ot specified [facility] Results/Labs test date author facility value unit interpretation Result panel 1 (unknown) (no date) (unknown) (unknown) (no value) (units unknown) (unknown) (unknown) (no date) (unknown) (unknown) (Intermediate, Verified 09/21/22 10:37) (units unknown) (unknown) (unknown) (no date) (unknown) (unknown) [id number] (units unknown) (unknown) (unknown) (no date) (unknown) (unknown) 09/21/22 (units unknown) (unknown) (unknown) (no date) (unknown) (unknown) 09/21/22] (units unknown) (unknown) (unknown) (no date) (unknown) (unknown) Age/Sex: 87 / M Date of Service: (units unknown) (unknown) (unknown) (no date) (unknown) (unknown) Allergies (units unknown) (unknown) (unknown) (no date) (unknown) (unknown) [place] [address] (units unknown) (unknown) (unknown) (no date) (unknown) (unknown) Asthma (units unknown) (unknown) (unknown) (no date) (unknown) (unknown) Atrial fibrillation (units unknown) (unknown) (unknown) (no date) (unknown) (unknown) Attending Dr: Matt Nicole MD (units unknown) (unknown) (unknown) (no date) (unknown) (unknown) Chronic anticoagulation (units unknown) (unknown) (unknown) (no date) (unknown) (unknown) Confirmed 09/21/22] (units unknown) (unknown) (unknown) (no date) (unknown) (unknown) : 4 Acct:[id number] (units unknown) (unknown) (unknown) (no date) (unknown) (unknown) Dept at . (units unknown) (unknown) (unknown) (no date) (unknown) (unknown) Documented By: Matt Nicole MD 09/21/22 1036 (units unknown) (unknown) (unknown) (no date) (unknown) (unknown) Draft (units unknown) (unknown) (unknown) (no date) (unknown) (unknown) Essential hypertensi on (units unknown) (unknown) (unknown) (no date) (unknown) (unknown) Family History (Updated 09/21/22 @ 10:36 by Bambi Shukla MA) (units unknown) (unknown) (unknown) (no date) (unknown) (unknown) Father d Diabetes mellitus (units unknown) (unknown) (unknown) (no date) (unknown) (unknown) History of mook er biopsy (units unknown) (unknown) (unknown) (no date) (unknown) (unknown) History of melanoma (units unknown) (unknown) (unknown) (no date) (unknown) (unknown) History of per manent cardiac pacemaker placement (units unknown) (unknown) (unknown) (no date) (unknown) (unknown) Intake (units unknown) (unknown) (unknown) (no date) (unknown) (unknown) [facility] (unit s unknown) (unknown) (unknown) (no date) (unknown) (unknown) Loc: [facility] (units unknown) (unknown) (unknown) (no date) (unknown) (unknown) Medical Histor y (Updated 06/17/22 @ 00:55 by Hawa Michael [facility]) (units unknown) (unknown) (unknown) (no date) (unknown) (unknown) Medications (units unknown) (unknown) (unknown) (no date) (unknown) (unknown) Mother d No problems noted. (units unknown) (unknown) (unknown) (no date) (unknown) (unknown) PFSH (units unknown) (unknown) (unknown) (no date) (unknown) (unknown) Pacemaker (units unknown) (unknown) (unknown) (no date) (unknown) (unknown) Patient: Yoseph Corado MR#: [id number] (units unknown) (unknown) (unknown) (no date) (unknown) (unknown) Reason For Visit (un its unknown) (unknown) (unknown) (no date) (unknown) (unknown) Signed By: (units unknown) (unknown) (unknown) (no date) (unknown) (unknown) Smoking Status : Never smoker (units unknown) (unknown) (unknown) (no date) (unknown) (unknown) Social History (units unknown) (unknown) (unknown) (no date) (unknown) (unknown) Son Melanoma (units unknown) (unknown) (unknown) (no date) (unknown) (unknown) Surgical Histo ry (Updated 09/21/22 @ 10:41 by Bambi Shukla MA) (units unknown) (unknown) (unknown) (no date) (unknown) (unknown) This note may have been all or partially generated using voice recognition (units unknown) (unknown) (unknown) (no date) (unknown) (unknown) Tobacco Status (unit s unknown) (unknown) (unknown) (no date) (unknown) (unknown) Urology Office Visit (units unknown) (unknown) (unknown) (no date) (unknown) (unknown) 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 - Urinary outflow obstruction (units unknown) (unknown) (unknown) (no date) (unknown) (unknown) alcohol intake : current (units unknown) (unknown) (unknown) (no date) (unknown) (unknown) apixaban 5 mg tablet (Eliquis) 5 mg PO BID blood thinner 06/16/22 [History (units unknown) (unknown) (unknown) (no date) (unknown) (unknown) binimetinib 15 mg tablet (Mektovi) 30 mg PO Q12H 09/19/22 [History Confirmed (units unknown) (unknown) (unknown) (no date) (unknown) (unknown) encorafenib 50 mg capsule (Braftovi) 300 mg PO DAILY 09/19/22 [History Confirmed (units unknown) (unknown) (unknown) (no date) (unknown) (unknown) furosemide 20 mg tablet 20 mg PO Q OTHER DAY 09/19/22 [History Confirmed (units unknown) (unknown) (unknown) (no date) (unknown) (unknown) gabapentin 300 mg capsule 300 mg PO BID 06/16/22 [History Confirmed 09/21/22] (units unknown) (unknown) (unknown) (no date) (unknown) (unknown) have occurred. If there are any questions, please contact the Medical Records (units unknown) (unknown) (unknown) (no date) (unknown) (unknown) household memb ers: spouse (units unknown) (unknown) (unknown) (no date) (unknown) (unknown) may occur. Occ asional wrong-word or 'sound-alike' substitutions may have (units unknown) (unknown) (unknown) (no date) (unknown) (unknown) meq PO .every other day 09/19/22 [History Confirmed 09/21/22] (units unknown) (unknown) (unknown) (no date) (unknown) (unknown) occurred due t o the inherent limitations of voice recognition software. Please (units unknown) (unknown) (unknown) (no date) (unknown) (unknown) oxycodone 5 mg tablet 5 mg PO Q8H PRN 09/19/22 [History] (units unknown) (unknown) (unknown) (no date) (unknown) (unknown) pneumococcal 7 -valent conjugate to [From Prevnar] Adverse Reaction (units unknown) (unknown) (unknown) (no date) (unknown) (unknown) potassium chlo ride 20 mEq tablet,extended release(part/cryst) (Klor-Con M) 20 (units unknown) (unknown) (unknown) (no date) (unknown) (unknown) read the note carefully and recognize, using context, where these substitutions (units unknown) (unknown) (unknown) (no date) (unknown) (unknown) software. [facility] every effort is made to edit content, arterial embalmer errors (units unknown) (unknown) (unknown) (no date) (unknown) (unknown) swelling of [place] nds and feet x 4 mos after. (units unknown) (unknown) (unknown) (no date) (unknown) (unknown) tamsulosin 0.4 mg capsule 0.4 mg PO DAILY 09/19/22 [History Confirmed 09/21/22] (units unknown) (unknown) (unknown) (no date) (unknown) (unknown) therapeutic multivitamin 1 tab PO DAILY 09/19/22 [History Confirmed 09/21/22] (units unknown) (unknown) Result panel 2 (unknown) (no date) (unknown) (unknown) (no value) (units unknown) (unknown) (unknown) (no date) (unknown) (unknown) (Intermediate, Verified 09/21/22 10:37) (units unknown) (unknown) (unknown) (no date) (unknown) (unknown) [id number] (units unknown) (unknown) (unknown) (no date) (unknown) (unknown) 09/21/22 (units unknown) (unknown) (unknown) (no date) (unknown) (unknown) 09/21/22] (units unknown) (unknown) (unknown) (no date) (unknown) (unknown) 87yr old male presents today for urinary outflow obstruction (units unknown) (unknown) (unknown) (no date) (unknown) (unknown) Age/Sex: 87 / M Date of Service: (units unknown) (unknown) (unknown) (no date) (unknown) (unknown) Allergies (units unknown) (unknown) (unknown) (no date) (unknown) (unknown) [place] [id number] (units unknown) (unknown) (unknown) (no date) (unknown) (unknown) Asthma (units unknown) (unknown) (unknown) (no date) (unknown) (unknown) Atrial fibrillation (units unknown) (unknown) (unknown) (no date) (unknown) (unknown) Attending Dr: Matt Nicole MD (units unknown) (unknown) (unknown) (no date) (unknown) (unknown) Chronic anticoagulation (units unknown) (unknown) (unknown) (no date) (unknown) (unknown) Confirmed 09/21/22] (units unknown) (unknown) (unknown) (no date) (unknown) (unknown) : 4 Acct:[id number] (units unknown) (unknown) (unknown) (no date) (unknown) (unknown) Dept at [phone]. (units unknown) (unknown) (unknown) (no date) (unknown) (unknown) Documented By: Matt Niocle MD 09/21/22 1036 (units unknown) (unknown) (unknown) (no date) (unknown) (unknown) Draft (units unknown) (unknown) (unknown) (no date) (unknown) (unknown) Essential hypertensi on (units unknown) (unknown) (unknown) (no date) (unknown) (unknown) Family History (Updated 09/21/22 @ 10:36 by Bambi Shukla MA) (units unknown) (unknown) (unknown) (no date) (unknown) (unknown) Father d Diabetes mellitus (units unknown) (unknown) (unknown) (no date) (unknown) (unknown) Health Managem ent reviewed with patient: Yes (units unknown) (unknown) (unknown) (no date) (unknown) (unknown) Health Management (u nits unknown) (unknown) (unknown) (no date) (unknown) (unknown) History of mook er biopsy (units unknown) (unknown) (unknown) (no date) (unknown) (unknown) History of melanoma (units unknown) (unknown) (unknown) (no date) (unknown) (unknown) History of per manent cardiac pacemaker placement (units unknown) (unknown) (unknown) (no date) (unknown) (unknown) Intake Note: (units unknown) (unknown) (unknown) (no date) (unknown) (unknown) Intake perform ed by: Bambi Shukla (units unknown) (unknown) (unknown) (no date) (unknown) (unknown) Intake (units unknown) (unknown) (unknown) (no date) (unknown) (unknown) Intake- Clincial Sta ff (units unknown) (unknown) (unknown) (no date) (unknown) (unknown) [facility] (unit s unknown) (unknown) (unknown) (no date) (unknown) (unknown) Loc: [facility] (units unknown) (unknown) (unknown) (no date) (unknown) (unknown) Medical Histor y (Updated 06/17/22 @ 00:55 by Hawa Michael [facility]) (units unknown) (unknown) (unknown) (no date) (unknown) (unknown) Medications (units unknown) (unknown) (unknown) (no date) (unknown) (unknown) Mother d No problems noted. (units unknown) (unknown) (unknown) (no date) (unknown) (unknown) PFSH (units unknown) (unknown) (unknown) (no date) (unknown) (unknown) Pacemaker (units unknown) (unknown) (unknown) (no date) (unknown) (unknown) Patient: Yoseph Corado MR#: [id number] (units unknown) (unknown) (unknown) (no date) (unknown) (unknown) Reason For Visit (un its unknown) (unknown) (unknown) (no date) (unknown) (unknown) Signed By: (units unknown) (unknown) (unknown) (no date) (unknown) (unknown) Smoking Status : Never smoker (units unknown) (unknown) (unknown) (no date) (unknown) (unknown) Social History (units unknown) (unknown) (unknown) (no date) (unknown) (unknown) Son Melanoma (units unknown) (unknown) (unknown) (no date) (unknown) (unknown) Surgical Histo ry (Updated 09/21/22 @ 10:41 by Bambi Shukla MA) (units unknown) (unknown) (unknown) (no date) (unknown) (unknown) This note may have been all or partially generated using voice recognition (units unknown) (unknown) (unknown) (no date) (unknown) (unknown) Tobacco Status (unit s unknown) (unknown) (unknown) (no date) (unknown) (unknown) Urology Office Visit (units unknown) (unknown) (unknown) (no date) (unknown) (unknown) 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 - Urinary outflow obstruction (units unknown) (unknown) (unknown) (no date) (unknown) (unknown) alcohol intake : current (units unknown) (unknown) (unknown) (no date) (unknown) (unknown) apixaban 5 mg tablet (Eliquis) 5 mg PO BID blood thinner 06/16/22 [History (units unknown) (unknown) (unknown) (no date) (unknown) (unknown) binimetinib 15 mg tablet (Mektovi) 30 mg PO Q12H 09/19/22 [History Confirmed (units unknown) (unknown) (unknown) (no date) (unknown) (unknown) encorafenib 50 mg capsule (Braftovi) 300 mg PO DAILY 09/19/22 [History Confirmed (units unknown) (unknown) (unknown) (no date) (unknown) (unknown) furosemide 20 mg tablet 20 mg PO Q OTHER DAY 09/19/22 [History Confirmed (units unknown) (unknown) (unknown) (no date) (unknown) (unknown) gabapentin 300 mg capsule 300 mg PO BID 06/16/22 [History Confirmed 09/21/22] (units unknown) (unknown) (unknown) (no date) (unknown) (unknown) have occurred. If there are any questions, please contact the Medical Records (units unknown) (unknown) (unknown) (no date) (unknown) (unknown) household memb ers: spouse (units unknown) (unknown) (unknown) (no date) (unknown) (unknown) may occur. Occ asional wrong-word or 'sound-alike' substitutions may have (units unknown) (unknown) (unknown) (no date) (unknown) (unknown) meq PO .every other day 09/19/22 [History Confirmed 09/21/22] (units unknown) (unknown) (unknown) (no date) (unknown) (unknown) occurred due t o the inherent limitations of voice recognition software. Please (units unknown) (unknown) (unknown) (no date) (unknown) (unknown) oxycodone 5 mg tablet 5 mg PO Q8H PRN 09/19/22 [History] (units unknown) (unknown) (unknown) (no date) (unknown) (unknown) pneumococcal 7 -valent conjugate to [From Prevnar] Adverse Reaction (units unknown) (unknown) (unknown) (no date) (unknown) (unknown) potassium chlo ride 20 mEq tablet,extended release(part/cryst) (Klor-Con M) 20 (units unknown) (unknown) (unknown) (no date) (unknown) (unknown) read the note carefully and recognize, using context, where these substitutions (units unknown) (unknown) (unknown) (no date) (unknown) (unknown) software. [facility] every effort is made to edit content, arterial embalmer errors (units unknown) (unknown) (unknown) (no date) (unknown) (unknown) swelling of [place] nds and feet x 4 mos after. (units unknown) (unknown) (unknown) (no date) (unknown) (unknown) tamsulosin 0.4 mg capsule 0.4 mg PO DAILY 09/19/22 [History Confirmed 09/21/22] (units unknown) (unknown) (unknown) (no date) (unknown) (unknown) therapeutic multivitamin 1 tab PO DAILY 09/19/22 [History Confirmed 09/21/22] (units unknown) (unknown) Result panel 3 (unknown) (no date) (unknown) (unknown) (no value) (units unknown) (unknown) (unknown) (no date) (unknown) (unknown) (Intermediate, Verified 09/21/22 10:37) (units unknown) (unknown) (unknown) (no date) (unknown) (unknown) [id number] (units unknown) (unknown) (unknown) (no date) (unknown) (unknown) 09/21/22 11:18 (unit s unknown) (unknown) (unknown) (no date) (unknown) (unknown) 09/21/22 (units unknown) (unknown) (unknown) (no date) (unknown) (unknown) 09/21/22] (units unknown) (unknown) (unknown) (no date) (unknown) (unknown) 11:12 (units unknown) (unknown) (unknown) (no date) (unknown) (unknown) 11:18 (units unknown) (unknown) (unknown) (no date) (unknown) (unknown) 18 (units unknown) (unknown) (unknown) (no date) (unknown) (unknown) 3 (units unknown) (unknown) (unknown) (no date) (unknown) (unknown) 87yr old male presents today for urinary outflow obstruction (units unknown) (unknown) (unknown) (no date) (unknown) (unknown) :18 (units unknown) (unknown) (unknown) (no date) (unknown) (unknown) Accompanied by: (units unknown) (unknown) (unknown) (no date) (unknown) (unknown) Age/Sex: 87 / M Date of Service: (units unknown) (unknown) (unknown) (no date) (unknown) (unknown) Allergies (units unknown) (unknown) (unknown) (no date) (unknown) (unknown) [place] [id number] (units unknown) (unknown) (unknown) (no date) (unknown) (unknown) Assessment + Plan (u nits unknown) (unknown) (unknown) (no date) (unknown) (unknown) Asthma (units unknown) (unknown) (unknown) (no date) (unknown) (unknown) Atrial fibrillation (units unknown) (unknown) (unknown) (no date) (unknown) (unknown) Attending Dr: Matt Nicole MD (units unknown) (unknown) (unknown) (no date) (unknown) (unknown) BMI 19.0 (units unknown) (unknown) (unknown) (no date) (unknown) (unknown) BP 109/65 (units unknown) (unknown) (unknown) (no date) (unknown) (unknown) Blood Pressure Location Rt brachial (units unknown) (unknown) (unknown) (no date) (unknown) (unknown) Chronic anticoagulation (units unknown) (unknown) (unknown) (no date) (unknown) (unknown) Confirmed 09/21/22] (units unknown) (unknown) (unknown) (no date) (unknown) (unknown) : 4 Acct:[id number] (units unknown) (unknown) (unknown) (no date) (unknown) (unknown) Dept at . (units unknown) (unknown) (unknown) (no date) (unknown) (unknown) Documented By: Matt Nicole MD 09/21/22 1036 (units unknown) (unknown) (unknown) (no date) (unknown) (unknown) Draft (units unknown) (unknown) (unknown) (no date) (unknown) (unknown) Essential hypertensi on (units unknown) (unknown) (unknown) (no date) (unknown) (unknown) Family History (Updated 09/21/22 @ 10:36 by Bambi Shukla MA) (units unknown) (unknown) (unknown) (no date) (unknown) (unknown) Father d Diabetes mellitus (units unknown) (unknown) (unknown) (no date) (unknown) (unknown) Health Managem ent reviewed with patient: Yes (units unknown) (unknown) (unknown) (no date) (unknown) (unknown) Health Management (u nits unknown) (unknown) (unknown) (no date) (unknown) (unknown) Height 6 ft (units unknown) (unknown) (unknown) (no date) (unknown) (unknown) History of mook er biopsy (units unknown) (unknown) (unknown) (no date) (unknown) (unknown) History of melanoma (units unknown) (unknown) (unknown) (no date) (unknown) (unknown) History of per manent cardiac pacemaker placement (units unknown) (unknown) (unknown) (no date) (unknown) (unknown) Intake Note: (units unknown) (unknown) (unknown) (no date) (unknown) (unknown) Intake perform ed by: Bambi Shukla (units unknown) (unknown) (unknown) (no date) (unknown) (unknown) Intake (units unknown) (unknown) (unknown) (no date) (unknown) (unknown) Intake- Clincial Sta ff (units unknown) (unknown) (unknown) (no date) (unknown) (unknown) [facility] (unit s unknown) (unknown) (unknown) (no date) (unknown) (unknown) Loc: [facility] (units unknown) (unknown) (unknown) (no date) (unknown) (unknown) Medical Histor y (Updated 06/17/22 @ 00:55 by JOSE Crystal) (units unknown) (unknown) (unknown) (no date) (unknown) (unknown) Medications (units unknown) (unknown) (unknown) (no date) (unknown) (unknown) Mother d No problems noted. (units unknown) (unknown) (unknown) (no date) (unknown) (unknown) Orders (units unknown) (unknown) (unknown) (no date) (unknown) (unknown) Orders: (units unknown) (unknown) (unknown) (no date) (unknown) (unknown) Oxygen Deliver y Method room air (units unknown) (unknown) (unknown) (no date) (unknown) (unknown) PFSH (units unknown) (unknown) (unknown) (no date) (unknown) (unknown) POC Urine Dip Today R30.0 - Dysuria (units unknown) (unknown) (unknown) (no date) (unknown) (unknown) Pacemaker (units unknown) (unknown) (unknown) (no date) (unknown) (unknown) Patient: Yoseph Corado MR#: [id number] (units unknown) (unknown) (unknown) (no date) (unknown) (unknown) Position Sitting (un its unknown) (unknown) (unknown) (no date) (unknown) (unknown) Pulse 64 (units unknown) (unknown) (unknown) (no date) (unknown) (unknown) Pulse Oximetry (%) 1 00 (units unknown) (unknown) (unknown) (no date) (unknown) (unknown) Pulse Source Monitor (units unknown) (unknown) (unknown) (no date) (unknown) (unknown) Reason For Visit (un its unknown) (unknown) (unknown) (no date) (unknown) (unknown) Results (units unknown) (unknown) (unknown) (no date) (unknown) (unknown) Signed By: (units unknown) (unknown) (unknown) (no date) (unknown) (unknown) Smoking Status : Never smoker (units unknown) (unknown) (unknown) (no date) (unknown) (unknown) Social History (units unknown) (unknown) (unknown) (no date) (unknown) (unknown) Son Melanoma (units unknown) (unknown) (unknown) (no date) (unknown) (unknown) Surgical Histo ry (Updated 09/21/22 @ 10:41 by Bambi Shukla MA) (units unknown) (unknown) (unknown) (no date) (unknown) (unknown) This note may have been all or partially generated using voice recognition (units unknown) (unknown) (unknown) (no date) (unknown) (unknown) Tobacco Status (unit s unknown) (unknown) (unknown) (no date) (unknown) (unknown) Urine Appearan ce Clear Last Edit by Bambi Shukla MA on 09/21/22 11:18 (units unknown) (unknown) (unknown) (no date) (unknown) (unknown) Urine Bilirubi n Negative Last Edit by Bambi Shukla MA on 09/21/22 11:18 (units unknown) (unknown) (unknown) (no date) (unknown) (unknown) Urine Blood Ne gative Last Edit by Bambi Shukla MA on 09/21/22 11:18 (units unknown) (unknown) (unknown) (no date) (unknown) (unknown) Urine Color Da rk Yellow Last Edit by Bambi Shukla MA on 09/21/22 11:18 (units unknown) (unknown) (unknown) (no date) (unknown) (unknown) Urine Dipstick (unit s unknown) (unknown) (unknown) (no date) (unknown) (unknown) Urine Glucose Negative mg/dL Last Edit by Bambi Shukla MA on 09/21/22 11: (units unknown) (unknown) (unknown) (no date) (unknown) (unknown) Urine Ketones Negative Last Edit by Bambi Shukla MA on 09/21/22 11:18 (units unknown) (unknown) (unknown) (no date) (unknown) (unknown) Urine Leukocyt e Esterase 2+ 125 Rosie/uL Last Edit by Bambi Shukla MA on (units unknown) (unknown) (unknown) (no date) (unknown) (unknown) Urine Nitrate Negative Last Edit by Bambi Shukla MA on 09/21/22 11:18 (units unknown) (unknown) (unknown) (no date) (unknown) (unknown) Urine Protein +- 15 mg/dL Last Edit by Bambi Shukla MA on 09/21/22 11:18 (units unknown) (unknown) (unknown) (no date) (unknown) (unknown) Urine Specific [place] 1.015 Last Edit by Bambi Shukla MA on 09/21/22 11 (units unknown) (unknown) (unknown) (no date) (unknown) (unknown) Urine Urobilin ogen - 0.2 mg/dL Last Edit by Bambi Shukla MA on (units unknown) (unknown) (unknown) (no date) (unknown) (unknown) Urine pH 6.0 L ast Edit by Bambi Shukla MA on 09/21/22 11:18 (units unknown) (unknown) (unknown) (no date) (unknown) (unknown) Urology Office Visit (units unknown) (unknown) (unknown) (no date) (unknown) (unknown) 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 - Urinary outflow obstruction (units unknown) (unknown) (unknown) (no date) (unknown) (unknown) Vitals (units unknown) (unknown) (unknown) (no date) (unknown) (unknown) Weight 140 lb 1 oz ( units unknown) (unknown) (unknown) (no date) (unknown) (unknown) alcohol intake : current (units unknown) (unknown) (unknown) (no date) (unknown) (unknown) apixaban 5 mg tablet (Eliquis) 5 mg PO BID blood thinner 06/16/22 [History (units unknown) (unknown) (unknown) (no date) (unknown) (unknown) binimetinib 15 mg tablet (Mektovi) 30 mg PO Q12H 09/19/22 [History Confirmed (units unknown) (unknown) (unknown) (no date) (unknown) (unknown) encorafenib 50 mg capsule (Braftovi) 300 mg PO DAILY 09/19/22 [History Confirmed (units unknown) (unknown) (unknown) (no date) (unknown) (unknown) furosemide 20 mg tablet 20 mg PO Q OTHER DAY 09/19/22 [History Confirmed (units unknown) (unknown) (unknown) (no date) (unknown) (unknown) gabapentin 300 mg capsule 300 mg PO BID 06/16/22 [History Confirmed 09/21/22] (units unknown) (unknown) (unknown) (no date) (unknown) (unknown) have occurred. If there are any questions, please contact the Medical Records (units unknown) (unknown) (unknown) (no date) (unknown) (unknown) household memb ers: spouse (units unknown) (unknown) (unknown) (no date) (unknown) (unknown) may occur. Occ asional wrong-word or 'sound-alike' substitutions may have (units unknown) (unknown) (unknown) (no date) (unknown) (unknown) meq PO .every other day 09/19/22 [History Confirmed 09/21/22] (units unknown) (unknown) (unknown) (no date) (unknown) (unknown) occurred due t o the inherent limitations of voice recognition software. Please (units unknown) (unknown) (unknown) (no date) (unknown) (unknown) oxycodone 5 mg tablet 5 mg PO Q8H PRN 09/19/22 [History] (units unknown) (unknown) (unknown) (no date) (unknown) (unknown) pneumococcal 7 -valent conjugate to [From Prevnar] Adverse Reaction (units unknown) (unknown) (unknown) (no date) (unknown) (unknown) potassium chlo ride 20 mEq tablet,extended release(part/cryst) (Klor-Con M) 20 (units unknown) (unknown) (unknown) (no date) (unknown) (unknown) read the note carefully and recognize, using context, where these substitutions (units unknown) (unknown) (unknown) (no date) (unknown) (unknown) software. Alth ough every effort is made to edit content, arterial embalmer errors (units unknown) (unknown) (unknown) (no date) (unknown) (unknown) swelling of [place] nds and feet x 4 mos after. (units unknown) (unknown) (unknown) (no date) (unknown) (unknown) tamsulosin 0.4 mg capsule 0.4 mg PO DAILY 09/19/22 [History Confirmed 09/21/22] (units unknown) (unknown) (unknown) (no date) (unknown) (unknown) therapeutic multivitamin 1 tab PO DAILY 09/19/22 [History Confirmed 09/21/22] (units unknown) (unknown) Result panel 4 (unknown) (no date) (unknown) (unknown) (no value) (units unknown) (unknown) (unknown) (no date) (unknown) (unknown) (Intermediate, Verified 09/21/22 10:37) (units unknown) (unknown) (unknown) (no date) (unknown) (unknown) [id number] (units unknown) (unknown) (unknown) (no date) (unknown) (unknown) 09/21/22 11:18 (unit s unknown) (unknown) (unknown) (no date) (unknown) (unknown) 09/21/22 (units unknown) (unknown) (unknown) (no date) (unknown) (unknown) 09/21/22] (units unknown) (unknown) (unknown) (no date) (unknown) (unknown) 11:12 (units unknown) (unknown) (unknown) (no date) (unknown) (unknown) 11:18 (units unknown) (unknown) (unknown) (no date) (unknown) (unknown) 18 (units unknown) (unknown) (unknown) (no date) (unknown) (unknown) 3 (units unknown) (unknown) (unknown) (no date) (unknown) (unknown) 87yr old male presents today for urinary outflow obstruction (units unknown) (unknown) (unknown) (no date) (unknown) (unknown) :18 (units unknown) (unknown) (unknown) (no date) (unknown) (unknown) Accompanied by: (units unknown) (unknown) (unknown) (no date) (unknown) (unknown) Age/Sex: 87 / M Date of Service: (units unknown) (unknown) (unknown) (no date) (unknown) (unknown) Allergies (units unknown) (unknown) (unknown) (no date) (unknown) (unknown) [place] [address] (units unknown) (unknown) (unknown) (no date) (unknown) (unknown) Assessment + Plan (u nits unknown) (unknown) (unknown) (no date) (unknown) (unknown) Asthma (units unknown) (unknown) (unknown) (no date) (unknown) (unknown) Atrial fibrillation (units unknown) (unknown) (unknown) (no date) (unknown) (unknown) Attending Dr: Matt Nicole MD (units unknown) (unknown) (unknown) (no date) (unknown) (unknown) BMI 19.0 (units unknown) (unknown) (unknown) (no date) (unknown) (unknown) BP 109/65 (units unknown) (unknown) (unknown) (no date) (unknown) (unknown) Blood Pressure Location Rt brachial (units unknown) (unknown) (unknown) (no date) (unknown) (unknown) Chronic anticoagulation (units unknown) (unknown) (unknown) (no date) (unknown) (unknown) Confirmed 09/21/22] (units unknown) (unknown) (unknown) (no date) (unknown) (unknown) : 4 Acct:[id number] (units unknown) (unknown) (unknown) (no date) (unknown) (unknown) Dept at [phone] (units unknown) (unknown) (unknown) (no date) (unknown) (unknown) Documented By: Matt Nicole MD 09/21/22 1036 (units unknown) (unknown) (unknown) (no date) (unknown) (unknown) Draft (units unknown) (unknown) (unknown) (no date) (unknown) (unknown) Essential hypertensi on (units unknown) (unknown) (unknown) (no date) (unknown) (unknown) Family History (Updated 09/21/22 @ 10:36 by Bambi Shukla MA) (units unknown) (unknown) (unknown) (no date) (unknown) (unknown) Father d Diabetes mellitus (units unknown) (unknown) (unknown) (no date) (unknown) (unknown) Health Managem ent reviewed with patient: Yes (units unknown) (unknown) (unknown) (no date) (unknown) (unknown) Health Management (u nits unknown) (unknown) (unknown) (no date) (unknown) (unknown) Height 6 ft (units unknown) (unknown) (unknown) (no date) (unknown) (unknown) History of mook er biopsy (units unknown) (unknown) (unknown) (no date) (unknown) (unknown) History of melanoma (units unknown) (unknown) (unknown) (no date) (unknown) (unknown) History of per manent cardiac pacemaker placement (units unknown) (unknown) (unknown) (no date) (unknown) (unknown) Intake Note: (units unknown) (unknown) (unknown) (no date) (unknown) (unknown) Intake perform ed by: Bambi Shukla (units unknown) (unknown) (unknown) (no date) (unknown) (unknown) Intake (units unknown) (unknown) (unknown) (no date) (unknown) (unknown) Intake- Clincial Sta ff (units unknown) (unknown) (unknown) (no date) (unknown) (unknown) [facility] (unit s unknown) (unknown) (unknown) (no date) (unknown) (unknown) Loc: [facility] (units unknown) (unknown) (unknown) (no date) (unknown) (unknown) Medical Histor y (Updated 06/17/22 @ 00:55 by ALINE Crystal-BC) (units unknown) (unknown) (unknown) (no date) (unknown) (unknown) Medications (units unknown) (unknown) (unknown) (no date) (unknown) (unknown) Mother d No problems noted. (units unknown) (unknown) (unknown) (no date) (unknown) (unknown) Orders (units unknown) (unknown) (unknown) (no date) (unknown) (unknown) Orders: (units unknown) (unknown) (unknown) (no date) (unknown) (unknown) Oxygen Deliver y Method room air (units unknown) (unknown) (unknown) (no date) (unknown) (unknown) PFSH (units unknown) (unknown) (unknown) (no date) (unknown) (unknown) POC Urine Dip Today R30.0 - Dysuria (units unknown) (unknown) (unknown) (no date) (unknown) (unknown) Pacemaker (units unknown) (unknown) (unknown) (no date) (unknown) (unknown) Patient: Yoseph Corado MR#: [id number] (units unknown) (unknown) (unknown) (no date) (unknown) (unknown) Position Sitting (un its unknown) (unknown) (unknown) (no date) (unknown) (unknown) Pulse 64 (units unknown) (unknown) (unknown) (no date) (unknown) (unknown) Pulse Oximetry (%) 1 00 (units unknown) (unknown) (unknown) (no date) (unknown) (unknown) Pulse Source Monitor (units unknown) (unknown) (unknown) (no date) (unknown) (unknown) Reason For Visit (un its unknown) (unknown) (unknown) (no date) (unknown) (unknown) Results (units unknown) (unknown) (unknown) (no date) (unknown) (unknown) Signed By: (units unknown) (unknown) (unknown) (no date) (unknown) (unknown) Smoking Status : Never smoker (units unknown) (unknown) (unknown) (no date) (unknown) (unknown) Social History (units unknown) (unknown) (unknown) (no date) (unknown) (unknown) Son Melanoma (units unknown) (unknown) (unknown) (no date) (unknown) (unknown) Surgical Histo ry (Updated 09/21/22 @ 10:41 by Bambi Shukla MA) (units unknown) (unknown) (unknown) (no date) (unknown) (unknown) This note may have been all or partially generated using voice recognition (units unknown) (unknown) (unknown) (no date) (unknown) (unknown) Tobacco Status (unit s unknown) (unknown) (unknown) (no date) (unknown) (unknown) Urine Appearan ce Clear Last Edit by Bambi Shukla MA on 09/21/22 11:18 (units unknown) (unknown) (unknown) (no date) (unknown) (unknown) Urine Bilirubi n Negative Last Edit by Bambi Shukla MA on 09/21/22 11:18 (units unknown) (unknown) (unknown) (no date) (unknown) (unknown) Urine Blood Ne gative Last Edit by Bambi Shukla MA on 09/21/22 11:18 (units unknown) (unknown) (unknown) (no date) (unknown) (unknown) Urine Color Da rk Yellow Last Edit by Bambi Shukla MA on 09/21/22 11:18 (units unknown) (unknown) (unknown) (no date) (unknown) (unknown) Urine Dipstick (unit s unknown) (unknown) (unknown) (no date) (unknown) (unknown) Urine Glucose Negative mg/dL Last Edit by Bambi Shukla MA on 09/21/22 11: (units unknown) (unknown) (unknown) (no date) (unknown) (unknown) Urine Ketones Negative Last Edit by Bambi Shukla MA on 09/21/22 11:18 (units unknown) (unknown) (unknown) (no date) (unknown) (unknown) Urine Leukocyt e Esterase 2+ 125 Rosie/uL Last Edit by Bambi Shukla MA on (units unknown) (unknown) (unknown) (no date) (unknown) (unknown) Urine Nitrate Negative Last Edit by Bambi Shukla MA on 09/21/22 11:18 (units unknown) (unknown) (unknown) (no date) (unknown) (unknown) Urine Protein +- 15 mg/dL Last Edit by Bambi Shukla MA on 09/21/22 11:18 (units unknown) (unknown) (unknown) (no date) (unknown) (unknown) Urine Specific [place] 1.015 Last Edit by Bambi Shukla MA on 09/21/22 11 (units unknown) (unknown) (unknown) (no date) (unknown) (unknown) Urine Urobilin ogen - 0.2 mg/dL Last Edit by Bambi Shukla MA on (units unknown) (unknown) (unknown) (no date) (unknown) (unknown) Urine pH 6.0 L ast Edit by Bambi Shukla MA on 09/21/22 11:18 (units unknown) (unknown) (unknown) (no date) (unknown) (unknown) Urology Office Visit (units unknown) (unknown) (unknown) (no date) (unknown) (unknown) 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 - Urinary outflow obstruction (units unknown) (unknown) (unknown) (no date) (unknown) (unknown) Vitals (units unknown) (unknown) (unknown) (no date) (unknown) (unknown) Weight 140 lb 1 oz ( units unknown) (unknown) (unknown) (no date) (unknown) (unknown) alcohol intake : current (units unknown) (unknown) (unknown) (no date) (unknown) (unknown) apixaban 5 mg tablet (Eliquis) 5 mg PO BID blood thinner 06/16/22 [History (units unknown) (unknown) (unknown) (no date) (unknown) (unknown) binimetinib 15 mg tablet (Mektovi) 30 mg PO Q12H 09/19/22 [History Confirmed (units unknown) (unknown) (unknown) (no date) (unknown) (unknown) encorafenib 50 mg capsule (Braftovi) 300 mg PO DAILY 09/19/22 [History Confirmed (units unknown) (unknown) (unknown) (no date) (unknown) (unknown) furosemide 20 mg tablet 20 mg PO Q OTHER DAY 09/19/22 [History Confirmed (units unknown) (unknown) (unknown) (no date) (unknown) (unknown) gabapentin 300 mg capsule 300 mg PO BID 06/16/22 [History Confirmed 09/21/22] (units unknown) (unknown) (unknown) (no date) (unknown) (unknown) have occurred. If there are any questions, please contact the Medical Records (units unknown) (unknown) (unknown) (no date) (unknown) (unknown) household memb ers: spouse (units unknown) (unknown) (unknown) (no date) (unknown) (unknown) may occur. Occ asional wrong-word or 'sound-alike' substitutions may have (units unknown) (unknown) (unknown) (no date) (unknown) (unknown) meq PO .every other day 09/19/22 [History Confirmed 09/21/22] (units unknown) (unknown) (unknown) (no date) (unknown) (unknown) occurred due t o the inherent limitations of voice recognition software. Please (units unknown) (unknown) (unknown) (no date) (unknown) (unknown) oxycodone 5 mg tablet 5 mg PO Q8H PRN 09/19/22 [History] (units unknown) (unknown) (unknown) (no date) (unknown) (unknown) pneumococcal 7 -valent conjugate to [From Prevnar] Adverse Reaction (units unknown) (unknown) (unknown) (no date) (unknown) (unknown) potassium chlo ride 20 mEq tablet,extended release(part/cryst) (Klor-Con M) 20 (units unknown) (unknown) (unknown) (no date) (unknown) (unknown) read the note carefully and recognize, using context, where these substitutions (units unknown) (unknown) (unknown) (no date) (unknown) (unknown) software. Alth ough every effort is made to edit content, arterial embalmer errors (units unknown) (unknown) (unknown) (no date) (unknown) (unknown) swelling of [place] nds and feet x 4 mos after. (units unknown) (unknown) (unknown) (no date) (unknown) (unknown) tamsulosin 0.4 mg capsule 0.4 mg PO DAILY 09/19/22 [History Confirmed 09/21/22] (units unknown) (unknown) (unknown) (no date) (unknown) (unknown) therapeutic multivitamin 1 tab PO DAILY 09/19/22 [History Confirmed 09/21/22] (units unknown) (unknown) Result panel 5 (unknown) (no date) (unknown) (unknown) (no value) (units unknown) (unknown) (unknown) (no date) (unknown) (unknown) (Intermediate, Verified 09/21/22 10:37) (units unknown) (unknown) (unknown) (no date) (unknown) (unknown) [id number] (units unknown) (unknown) (unknown) (no date) (unknown) (unknown) 09/21/22 11:18 (unit s unknown) (unknown) (unknown) (no date) (unknown) (unknown) 09/21/22 (units unknown) (unknown) (unknown) (no date) (unknown) (unknown) 09/21/22] (units unknown) (unknown) (unknown) (no date) (unknown) (unknown) 11:12 (units unknown) (unknown) (unknown) (no date) (unknown) (unknown) 11:18 (units unknown) (unknown) (unknown) (no date) (unknown) (unknown) 18 (units unknown) (unknown) (unknown) (no date) (unknown) (unknown) 3 (units unknown) (unknown) (unknown) (no date) (unknown) (unknown) 87yr old male presents today for urinary outflow obstruction (units unknown) (unknown) (unknown) (no date) (unknown) (unknown) :18 (units unknown) (unknown) (unknown) (no date) (unknown) (unknown) Accompanied by: (units unknown) (unknown) (unknown) (no date) (unknown) (unknown) Age/Sex: 87 / M Date of Service: (units unknown) (unknown) (unknown) (no date) (unknown) (unknown) Allergies (units unknown) (unknown) (unknown) (no date) (unknown) (unknown) [place] [address] (units unknown) (unknown) (unknown) (no date) (unknown) (unknown) Assessment + Plan (u nits unknown) (unknown) (unknown) (no date) (unknown) (unknown) Asthma (units unknown) (unknown) (unknown) (no date) (unknown) (unknown) Atrial fibrillation (units unknown) (unknown) (unknown) (no date) (unknown) (unknown) Attending Dr: Matt Nicole MD (units unknown) (unknown) (unknown) (no date) (unknown) (unknown) BMI 19.0 (units unknown) (unknown) (unknown) (no date) (unknown) (unknown) BP 109/65 (units unknown) (unknown) (unknown) (no date) (unknown) (unknown) Billing- Post Void Residual: Post Void Residual- [id number] (units unknown) (unknown) (unknown) (no date) (unknown) (unknown) Bladder volume : PVR=18ml (units unknown) (unknown) (unknown) (no date) (unknown) (unknown) Blood Pressure Location Rt brachial (units unknown) (unknown) (unknown) (no date) (unknown) (unknown) Chronic anticoagulation (units unknown) (unknown) (unknown) (no date) (unknown) (unknown) Confirmed 09/21/22] (units unknown) (unknown) (unknown) (no date) (unknown) (unknown) : 4 Acct:[id number] (units unknown) (unknown) (unknown) (no date) (unknown) (unknown) Dept at . (units unknown) (unknown) (unknown) (no date) (unknown) (unknown) Documented By: Matt Nicole MD 09/21/22 1036 (units unknown) (unknown) (unknown) (no date) (unknown) (unknown) Draft (units unknown) (unknown) (unknown) (no date) (unknown) (unknown) Essential hypertensi on (units unknown) (unknown) (unknown) (no date) (unknown) (unknown) Family History (Updated 09/21/22 @ 10:36 by Bambi Shukla MA) (units unknown) (unknown) (unknown) (no date) (unknown) (unknown) Father d Diabetes mellitus (units unknown) (unknown) (unknown) (no date) (unknown) (unknown) Health Managem ent reviewed with patient: Yes (units unknown) (unknown) (unknown) (no date) (unknown) (unknown) Health Management (u nits unknown) (unknown) (unknown) (no date) (unknown) (unknown) Height 6 ft (units unknown) (unknown) (unknown) (no date) (unknown) (unknown) History of mook er biopsy (units unknown) (unknown) (unknown) (no date) (unknown) (unknown) History of melanoma (units unknown) (unknown) (unknown) (no date) (unknown) (unknown) History of per manent cardiac pacemaker placement (units unknown) (unknown) (unknown) (no date) (unknown) (unknown) Intake Note: (units unknown) (unknown) (unknown) (no date) (unknown) (unknown) Intake perform ed by: Bambi Shukla (units unknown) (unknown) (unknown) (no date) (unknown) (unknown) Intake (units unknown) (unknown) (unknown) (no date) (unknown) (unknown) Intake- Clincial Sta ff (units unknown) (unknown) (unknown) (no date) (unknown) (unknown) [facility] (unit s unknown) (unknown) (unknown) (no date) (unknown) (unknown) Loc: [facility] (units unknown) (unknown) (unknown) (no date) (unknown) (unknown) Medical Histor y (Updated 06/17/22 @ 00:55 by aHwa Michael [facility]) (units unknown) (unknown) (unknown) (no date) (unknown) (unknown) Medications (units unknown) (unknown) (unknown) (no date) (unknown) (unknown) Mother d No problems noted. (units unknown) (unknown) (unknown) (no date) (unknown) (unknown) Office Procedures (u nits unknown) (unknown) (unknown) (no date) (unknown) (unknown) Orders (units unknown) (unknown) (unknown) (no date) (unknown) (unknown) Orders: (units unknown) (unknown) (unknown) (no date) (unknown) (unknown) Oxygen Deliver y Method room air (units unknown) (unknown) (unknown) (no date) (unknown) (unknown) PFSH (units unknown) (unknown) (unknown) (no date) (unknown) (unknown) POC Urine Dip Today R30.0 - Dysuria (units unknown) (unknown) (unknown) (no date) (unknown) (unknown) Pacemaker (units unknown) (unknown) (unknown) (no date) (unknown) (unknown) Patient: Yoseph Corado MR#: [id number] (units unknown) (unknown) (unknown) (no date) (unknown) (unknown) Position Sitting (un its unknown) (unknown) (unknown) (no date) (unknown) (unknown) Procedure perf ormed by: Kathia Rouse (units unknown) (unknown) (unknown) (no date) (unknown) (unknown) Pulse 64 (units unknown) (unknown) (unknown) (no date) (unknown) (unknown) Pulse Oximetry (%) 1 00 (units unknown) (unknown) (unknown) (no date) (unknown) (unknown) Pulse Source Monitor (units unknown) (unknown) (unknown) (no date) (unknown) (unknown) Reason For Visit (un its unknown) (unknown) (unknown) (no date) (unknown) (unknown) Residual: post void (units unknown) (unknown) (unknown) (no date) (unknown) (unknown) Results (units unknown) (unknown) (unknown) (no date) (unknown) (unknown) Signed By: (units unknown) (unknown) (unknown) (no date) (unknown) (unknown) Smoking Status : Never smoker (units unknown) (unknown) (unknown) (no date) (unknown) (unknown) Social History (units unknown) (unknown) (unknown) (no date) (unknown) (unknown) Son Melanoma (units unknown) (unknown) (unknown) (no date) (unknown) (unknown) Surgical Histo ry (Updated 09/21/22 @ 10:41 by Bambi Shukla MA) (units unknown) (unknown) (unknown) (no date) (unknown) (unknown) This note may have been all or partially generated using voice recognition (units unknown) (unknown) (unknown) (no date) (unknown) (unknown) Tobacco Status (unit s unknown) (unknown) (unknown) (no date) (unknown) (unknown) Urine Appearan ce Clear Last Edit by Bambi Shukla MA on 09/21/22 11:18 (units unknown) (unknown) (unknown) (no date) (unknown) (unknown) Urine Bilirubi n Negative Last Edit by Bambi Shukla MA on 09/21/22 11:18 (units unknown) (unknown) (unknown) (no date) (unknown) (unknown) Urine Blood Ne gative Last Edit by Bambi Shukla MA on 09/21/22 11:18 (units unknown) (unknown) (unknown) (no date) (unknown) (unknown) Urine Color Da rk Yellow Last Edit by Bambi Shukla MA on 09/21/22 11:18 (units unknown) (unknown) (unknown) (no date) (unknown) (unknown) Urine Dipstick (unit s unknown) (unknown) (unknown) (no date) (unknown) (unknown) Urine Glucose Negative mg/dL Last Edit by Bambi Shukla MA on 09/21/22 11: (units unknown) (unknown) (unknown) (no date) (unknown) (unknown) Urine Ketones Negative Last Edit by Bambi Shukla MA on 09/21/22 11:18 (units unknown) (unknown) (unknown) (no date) (unknown) (unknown) Urine Leukocyt e Esterase 2+ 125 Rosie/uL Last Edit by Bambi Shukla MA on (units unknown) (unknown) (unknown) (no date) (unknown) (unknown) Urine Nitrate Negative Last Edit by Bambi Shukla MA on 09/21/22 11:18 (units unknown) (unknown) (unknown) (no date) (unknown) (unknown) Urine Protein +- 15 mg/dL Last Edit by Bambi Shukla MA on 09/21/22 11:18 (units unknown) (unknown) (unknown) (no date) (unknown) (unknown) Urine Specific [place] 1.015 Last Edit by Bambi Shukla MA on 09/21/22 11 (units unknown) (unknown) (unknown) (no date) (unknown) (unknown) Urine Urobilin ogen - 0.2 mg/dL Last Edit by Bambi Shukla MA on (units unknown) (unknown) (unknown) (no date) (unknown) (unknown) Urine pH 6.0 L ast Edit by Bambi Shukla MA on 09/21/22 11:18 (units unknown) (unknown) (unknown) (no date) (unknown) (unknown) Urology Office Visit (units unknown) (unknown) (unknown) (no date) (unknown) (unknown) 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 - Urinary outflow obstruction (units unknown) (unknown) (unknown) (no date) (unknown) (unknown) Vitals (units unknown) (unknown) (unknown) (no date) (unknown) (unknown) Weight 140 lb 1 oz ( units unknown) (unknown) (unknown) (no date) (unknown) (unknown) alcohol intake : current (units unknown) (unknown) (unknown) (no date) (unknown) (unknown) apixaban 5 mg tablet (Eliquis) 5 mg PO BID blood thinner 06/16/22 [History (units unknown) (unknown) (unknown) (no date) (unknown) (unknown) binimetinib 15 mg tablet (Mektovi) 30 mg PO Q12H 09/19/22 [History Confirmed (units unknown) (unknown) (unknown) (no date) (unknown) (unknown) encorafenib 50 mg capsule (Braftovi) 300 mg PO DAILY 09/19/22 [History Confirmed (units unknown) (unknown) (unknown) (no date) (unknown) (unknown) furosemide 20 mg tablet 20 mg PO Q OTHER DAY 09/19/22 [History Confirmed (units unknown) (unknown) (unknown) (no date) (unknown) (unknown) gabapentin 300 mg capsule 300 mg PO BID 06/16/22 [History Confirmed 09/21/22] (units unknown) (unknown) (unknown) (no date) (unknown) (unknown) have occurred. If there are any questions, please contact the Medical Records (units unknown) (unknown) (unknown) (no date) (unknown) (unknown) household memb ers: spouse (units unknown) (unknown) (unknown) (no date) (unknown) (unknown) may occur. Occ asional wrong-word or 'sound-alike' substitutions may have (units unknown) (unknown) (unknown) (no date) (unknown) (unknown) meq PO .every other day 09/19/22 [History Confirmed 09/21/22] (units unknown) (unknown) (unknown) (no date) (unknown) (unknown) occurred due t o the inherent limitations of voice recognition software. Please (units unknown) (unknown) (unknown) (no date) (unknown) (unknown) oxycodone 5 mg tablet 5 mg PO Q8H PRN 09/19/22 [History] (units unknown) (unknown) (unknown) (no date) (unknown) (unknown) pneumococcal 7 -valent conjugate to [From Prevnar] Adverse Reaction (units unknown) (unknown) (unknown) (no date) (unknown) (unknown) potassium chlo ride 20 mEq tablet,extended release(part/cryst) (Klor-Con M) 20 (units unknown) (unknown) (unknown) (no date) (unknown) (unknown) read the note carefully and recognize, using context, where these substitutions (units unknown) (unknown) (unknown) (no date) (unknown) (unknown) software. Alth ough every effort is made to edit content, arterial embalmer errors (units unknown) (unknown) (unknown) (no date) (unknown) (unknown) swelling of [place] nds and feet x 4 mos after. (units unknown) (unknown) (unknown) (no date) (unknown) (unknown) tamsulosin 0.4 mg capsule 0.4 mg PO DAILY 09/19/22 [History Confirmed 09/21/22] (units unknown) (unknown) (unknown) (no date) (unknown) (unknown) therapeutic multivitamin 1 tab PO DAILY 09/19/22 [History Confirmed 09/21/22] (units unknown) (unknown) Result panel 6 (unknown) (no date) (unknown) (unknown) (no value) (units unknown) (unknown) (unknown) (no date) (unknown) (unknown) (Intermediate, Verified 09/21/22 10:37) (units unknown) (unknown) (unknown) (no date) (unknown) (unknown) [id number] (units unknown) (unknown) (unknown) (no date) (unknown) (unknown) 09/21/22 11:18 (unit s unknown) (unknown) (unknown) (no date) (unknown) (unknown) 09/21/22 (units unknown) (unknown) (unknown) (no date) (unknown) (unknown) 09/21/22] (units unknown) (unknown) (unknown) (no date) (unknown) (unknown) 11:12 (units unknown) (unknown) (unknown) (no date) (unknown) (unknown) 11:18 (units unknown) (unknown) (unknown) (no date) (unknown) (unknown) 18 (units unknown) (unknown) (unknown) (no date) (unknown) (unknown) 3 (units unknown) (unknown) (unknown) (no date) (unknown) (unknown) 87yr old male presents today for urinary outflow obstruction (units unknown) (unknown) (unknown) (no date) (unknown) (unknown) :18 (units unknown) (unknown) (unknown) (no date) (unknown) (unknown) Accompanied by: (units unknown) (unknown) (unknown) (no date) (unknown) (unknown) Age/Sex: 87 / M Date of Service: (units unknown) (unknown) (unknown) (no date) (unknown) (unknown) Allergies (units unknown) (unknown) (unknown) (no date) (unknown) (unknown) [place] [address] (units unknown) (unknown) (unknown) (no date) (unknown) (unknown) Assessment + Plan (u nits unknown) (unknown) (unknown) (no date) (unknown) (unknown) Asthma (units unknown) (unknown) (unknown) (no date) (unknown) (unknown) Atrial fibrillation (units unknown) (unknown) (unknown) (no date) (unknown) (unknown) Attending Dr: Matt Nicole MD (units unknown) (unknown) (unknown) (no date) (unknown) (unknown) BMI 19.0 (units unknown) (unknown) (unknown) (no date) (unknown) (unknown) BP 109/65 (units unknown) (unknown) (unknown) (no date) (unknown) (unknown) Billing- Post Void Residual: Post Void Residual- [id number] (units unknown) (unknown) (unknown) (no date) (unknown) (unknown) Bladder volume : PVR=18ml (units unknown) (unknown) (unknown) (no date) (unknown) (unknown) Blood Pressure Location Rt brachial (units unknown) (unknown) (unknown) (no date) (unknown) (unknown) Chronic anticoagulation (units unknown) (unknown) (unknown) (no date) (unknown) (unknown) Confirmed 09/21/22] (units unknown) (unknown) (unknown) (no date) (unknown) (unknown) : 4 Acct:[id number] (units unknown) (unknown) (unknown) (no date) (unknown) (unknown) Dept at [phone] (units unknown) (unknown) (unknown) (no date) (unknown) (unknown) Documented By: Matt Nicole MD 09/21/22 1036 (units unknown) (unknown) (unknown) (no date) (unknown) (unknown) Draft (units unknown) (unknown) (unknown) (no date) (unknown) (unknown) Essential hypertensi on (units unknown) (unknown) (unknown) (no date) (unknown) (unknown) Family History (Updated 09/21/22 @ 10:36 by Bambi Shukla MA) (units unknown) (unknown) (unknown) (no date) (unknown) (unknown) Father d Diabetes mellitus (units unknown) (unknown) (unknown) (no date) (unknown) (unknown) Health Managem ent reviewed with patient: Yes (units unknown) (unknown) (unknown) (no date) (unknown) (unknown) Health Management (u nits unknown) (unknown) (unknown) (no date) (unknown) (unknown) Height 6 ft (units unknown) (unknown) (unknown) (no date) (unknown) (unknown) History of mook er biopsy (units unknown) (unknown) (unknown) (no date) (unknown) (unknown) History of melanoma (units unknown) (unknown) (unknown) (no date) (unknown) (unknown) History of per manent cardiac pacemaker placement (units unknown) (unknown) (unknown) (no date) (unknown) (unknown) Intake Note: (units unknown) (unknown) (unknown) (no date) (unknown) (unknown) Intake perform ed by: Bambi Shukla (units unknown) (unknown) (unknown) (no date) (unknown) (unknown) Intake (units unknown) (unknown) (unknown) (no date) (unknown) (unknown) Intake- Clincial Sta ff (units unknown) (unknown) (unknown) (no date) (unknown) (unknown) [facility] (unit s unknown) (unknown) (unknown) (no date) (unknown) (unknown) Loc: [facility] (units unknown) (unknown) (unknown) (no date) (unknown) (unknown) Medical Histor y (Updated 06/17/22 @ 00:55 by Hawa Michael SPECIAL ORDER JEWELER-) (units unknown) (unknown) (unknown) (no date) (unknown) (unknown) Medications (units unknown) (unknown) (unknown) (no date) (unknown) (unknown) Mother d No problems noted. (units unknown) (unknown) (unknown) (no date) (unknown) (unknown) Office Procedures (u nits unknown) (unknown) (unknown) (no date) (unknown) (unknown) Orders (units unknown) (unknown) (unknown) (no date) (unknown) (unknown) Orders: (units unknown) (unknown) (unknown) (no date) (unknown) (unknown) Oxygen Deliver y Method room air (units unknown) (unknown) (unknown) (no date) (unknown) (unknown) PFSH (units unknown) (unknown) (unknown) (no date) (unknown) (unknown) POC Urine Dip Today R30.0 - Dysuria (units unknown) (unknown) (unknown) (no date) (unknown) (unknown) Pacemaker (units unknown) (unknown) (unknown) (no date) (unknown) (unknown) Patient: Yoseph Corado MR#: [id number] (units unknown) (unknown) (unknown) (no date) (unknown) (unknown) Position Sitting (un its unknown) (unknown) (unknown) (no date) (unknown) (unknown) Procedure perf ormed by: Kathia Rouse (units unknown) (unknown) (unknown) (no date) (unknown) (unknown) Pulse 64 (units unknown) (unknown) (unknown) (no date) (unknown) (unknown) Pulse Oximetry (%) 1 00 (units unknown) (unknown) (unknown) (no date) (unknown) (unknown) Pulse Source Monitor (units unknown) (unknown) (unknown) (no date) (unknown) (unknown) Reason For Visit (un its unknown) (unknown) (unknown) (no date) (unknown) (unknown) Residual: post void (units unknown) (unknown) (unknown) (no date) (unknown) (unknown) Results (units unknown) (unknown) (unknown) (no date) (unknown) (unknown) Signed By: (units unknown) (unknown) (unknown) (no date) (unknown) (unknown) Smoking Status : Never smoker (units unknown) (unknown) (unknown) (no date) (unknown) (unknown) Social History (units unknown) (unknown) (unknown) (no date) (unknown) (unknown) Son Melanoma (units unknown) (unknown) (unknown) (no date) (unknown) (unknown) Surgical Histo ry (Updated 09/21/22 @ 10:41 by Bambi Shukla MA) (units unknown) (unknown) (unknown) (no date) (unknown) (unknown) This note may have been all or partially generated using voice recognition (units unknown) (unknown) (unknown) (no date) (unknown) (unknown) Tobacco Status (unit s unknown) (unknown) (unknown) (no date) (unknown) (unknown) Urine Appearan ce Clear Last Edit by Bambi Shukla MA on 09/21/22 11:18 (units unknown) (unknown) (unknown) (no date) (unknown) (unknown) Urine Bilirubi n Negative Last Edit by Bambi Shukla MA on 09/21/22 11:18 (units unknown) (unknown) (unknown) (no date) (unknown) (unknown) Urine Blood Ne gative Last Edit by Bambi Shukla MA on 09/21/22 11:18 (units unknown) (unknown) (unknown) (no date) (unknown) (unknown) Urine Color Da rk Yellow Last Edit by Bambi Shukla MA on 09/21/22 11:18 (units unknown) (unknown) (unknown) (no date) (unknown) (unknown) Urine Dipstick (unit s unknown) (unknown) (unknown) (no date) (unknown) (unknown) Urine Glucose Negative mg/dL Last Edit by Bambi Shukla MA on 09/21/22 11: (units unknown) (unknown) (unknown) (no date) (unknown) (unknown) Urine Ketones Negative Last Edit by Bambi Shukla MA on 09/21/22 11:18 (units unknown) (unknown) (unknown) (no date) (unknown) (unknown) Urine Leukocyt e Esterase 2+ 125 Rosie/uL Last Edit by Bambi Shukla MA on (units unknown) (unknown) (unknown) (no date) (unknown) (unknown) Urine Nitrate Negative Last Edit by Bambi Shukla MA on 09/21/22 11:18 (units unknown) (unknown) (unknown) (no date) (unknown) (unknown) Urine Protein +- 15 mg/dL Last Edit by Bambi Shukla MA on 09/21/22 11:18 (units unknown) (unknown) (unknown) (no date) (unknown) (unknown) Urine Specific [place] 1.015 Last Edit by Bambi Shukla MA on 09/21/22 11 (units unknown) (unknown) (unknown) (no date) (unknown) (unknown) Urine Urobilin ogen - 0.2 mg/dL Last Edit by Bambi Shukla MA on (units unknown) (unknown) (unknown) (no date) (unknown) (unknown) Urine pH 6.0 L ast Edit by Bambi Shukla MA on 09/21/22 11:18 (units unknown) (unknown) (unknown) (no date) (unknown) (unknown) Urology Office Visit (units unknown) (unknown) (unknown) (no date) (unknown) (unknown) 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 - Urinary outflow obstruction (units unknown) (unknown) (unknown) (no date) (unknown) (unknown) Vitals (units unknown) (unknown) (unknown) (no date) (unknown) (unknown) Weight 140 lb 1 oz ( units unknown) (unknown) (unknown) (no date) (unknown) (unknown) alcohol intake : current (units unknown) (unknown) (unknown) (no date) (unknown) (unknown) apixaban 5 mg tablet (Eliquis) 5 mg PO BID blood thinner 06/16/22 [History (units unknown) (unknown) (unknown) (no date) (unknown) (unknown) binimetinib 15 mg tablet (Mektovi) 30 mg PO Q12H 09/19/22 [History Confirmed (units unknown) (unknown) (unknown) (no date) (unknown) (unknown) encorafenib 50 mg capsule (Braftovi) 300 mg PO DAILY 09/19/22 [History Confirmed (units unknown) (unknown) (unknown) (no date) (unknown) (unknown) furosemide 20 mg tablet 20 mg PO Q OTHER DAY 09/19/22 [History Confirmed (units unknown) (unknown) (unknown) (no date) (unknown) (unknown) gabapentin 300 mg capsule 300 mg PO BID 06/16/22 [History Confirmed 09/21/22] (units unknown) (unknown) (unknown) (no date) (unknown) (unknown) have occurred. If there are any questions, please contact the Medical Records (units unknown) (unknown) (unknown) (no date) (unknown) (unknown) household memb ers: spouse (units unknown) (unknown) (unknown) (no date) (unknown) (unknown) may occur. Occ asional wrong-word or 'sound-alike' substitutions may have (units unknown) (unknown) (unknown) (no date) (unknown) (unknown) meq PO .every other day 09/19/22 [History Confirmed 09/21/22] (units unknown) (unknown) (unknown) (no date) (unknown) (unknown) occurred due t o the inherent limitations of voice recognition software. Please (units unknown) (unknown) (unknown) (no date) (unknown) (unknown) oxycodone 5 mg tablet 5 mg PO Q8H PRN 09/19/22 [History] (units unknown) (unknown) (unknown) (no date) (unknown) (unknown) pneumococcal 7 -valent conjugate to [From Prevnar] Adverse Reaction (units unknown) (unknown) (unknown) (no date) (unknown) (unknown) potassium chlo ride 20 mEq tablet,extended release(part/cryst) (Klor-Con M) 20 (units unknown) (unknown) (unknown) (no date) (unknown) (unknown) read the note carefully and recognize, using context, where these substitutions (units unknown) (unknown) (unknown) (no date) (unknown) (unknown) software. Alth ough every effort is made to edit content, arterial embalmer errors (units unknown) (unknown) (unknown) (no date) (unknown) (unknown) swelling of [place] nds and feet x 4 mos after. (units unknown) (unknown) (unknown) (no date) (unknown) (unknown) tamsulosin 0.4 mg capsule 0.4 mg PO DAILY 09/19/22 [History Confirmed 09/21/22] (units unknown) (unknown) (unknown) (no date) (unknown) (unknown) therapeutic multivitamin 1 tab PO DAILY 09/19/22 [History Confirmed 09/21/22] (units unknown) (unknown) Result panel 7 (unknown) (no date) (unknown) (unknown) (no value) (units unknown) (unknown) (unknown) (no date) (unknown) (unknown) (Intermediate, Verified 09/21/22 10:37) (units unknown) (unknown) (unknown) (no date) (unknown) (unknown) [id number] (units unknown) (unknown) (unknown) (no date) (unknown) (unknown) 09/21/22 11:18 (unit s unknown) (unknown) (unknown) (no date) (unknown) (unknown) 09/21/22 (units unknown) (unknown) (unknown) (no date) (unknown) (unknown) 09/21/22] (units unknown) (unknown) (unknown) (no date) (unknown) (unknown) 11:12 (units unknown) (unknown) (unknown) (no date) (unknown) (unknown) 11:18 (units unknown) (unknown) (unknown) (no date) (unknown) (unknown) 18 (units unknown) (unknown) (unknown) (no date) (unknown) (unknown) 3 (units unknown) (unknown) (unknown) (no date) (unknown) (unknown) 87yr old male presents today for urinary outflow obstruction (units unknown) (unknown) (unknown) (no date) (unknown) (unknown) :18 (units unknown) (unknown) (unknown) (no date) (unknown) (unknown) Accompanied by: (units unknown) (unknown) (unknown) (no date) (unknown) (unknown) Age/Sex: 87 / M Date of Service: (units unknown) (unknown) (unknown) (no date) (unknown) (unknown) Allergies (units unknown) (unknown) (unknown) (no date) (unknown) (unknown) [place], [place] [id number] (units unknown) (unknown) (unknown) (no date) (unknown) (unknown) Assessment + Plan (u nits unknown) (unknown) (unknown) (no date) (unknown) (unknown) Asthma (units unknown) (unknown) (unknown) (no date) (unknown) (unknown) Atrial fibrillation (units unknown) (unknown) (unknown) (no date) (unknown) (unknown) Attending Dr: Matt Nicole MD (units unknown) (unknown) (unknown) (no date) (unknown) (unknown) BMI 19.0 (units unknown) (unknown) (unknown) (no date) (unknown) (unknown) BP 109/65 (units unknown) (unknown) (unknown) (no date) (unknown) (unknown) Billing- Post Void Residual: Post Void Residual- [id number] (units unknown) (unknown) (unknown) (no date) (unknown) (unknown) Bladder volume : PVR=18ml (units unknown) (unknown) (unknown) (no date) (unknown) (unknown) Blood Pressure Location Rt brachial (units unknown) (unknown) (unknown) (no date) (unknown) (unknown) Chronic anticoagulation (units unknown) (unknown) (unknown) (no date) (unknown) (unknown) Confirmed 09/21/22] (units unknown) (unknown) (unknown) (no date) (unknown) (unknown) : 4 Acct:[id number] (units unknown) (unknown) (unknown) (no date) (unknown) (unknown) Dept at . (units unknown) (unknown) (unknown) (no date) (unknown) (unknown) Documented By: Matt Nicole MD 09/21/22 1036 (units unknown) (unknown) (unknown) (no date) (unknown) (unknown) Draft (units unknown) (unknown) (unknown) (no date) (unknown) (unknown) Essential hypertensi on (units unknown) (unknown) (unknown) (no date) (unknown) (unknown) Family History (Updated 09/21/22 @ 10:36 by Bambi Shukla MA) (units unknown) (unknown) (unknown) (no date) (unknown) (unknown) Father d Diabetes mellitus (units unknown) (unknown) (unknown) (no date) (unknown) (unknown) Health Managem ent reviewed with patient: Yes (units unknown) (unknown) (unknown) (no date) (unknown) (unknown) Health Management (u nits unknown) (unknown) (unknown) (no date) (unknown) (unknown) Height 6 ft (units unknown) (unknown) (unknown) (no date) (unknown) (unknown) History of mook er biopsy (units unknown) (unknown) (unknown) (no date) (unknown) (unknown) History of melanoma (units unknown) (unknown) (unknown) (no date) (unknown) (unknown) History of per manent cardiac pacemaker placement (units unknown) (unknown) (unknown) (no date) (unknown) (unknown) Intake Note: (units unknown) (unknown) (unknown) (no date) (unknown) (unknown) Intake perform ed by: Bambi Shukla (units unknown) (unknown) (unknown) (no date) (unknown) (unknown) Intake (units unknown) (unknown) (unknown) (no date) (unknown) (unknown) Intake- Clincial Sta ff (units unknown) (unknown) (unknown) (no date) (unknown) (unknown) [facility] (unit s unknown) (unknown) (unknown) (no date) (unknown) (unknown) Loc: [facility] (units unknown) (unknown) (unknown) (no date) (unknown) (unknown) Medical Histor y (Updated 06/17/22 @ 00:55 by JOSE Crystal) (units unknown) (unknown) (unknown) (no date) (unknown) (unknown) Medications (units unknown) (unknown) (unknown) (no date) (unknown) (unknown) Mother d No problems noted. (units unknown) (unknown) (unknown) (no date) (unknown) (unknown) Office Procedures (u nits unknown) (unknown) (unknown) (no date) (unknown) (unknown) Orders (units unknown) (unknown) (unknown) (no date) (unknown) (unknown) Orders: (units unknown) (unknown) (unknown) (no date) (unknown) (unknown) Oxygen Deliver y Method room air (units unknown) (unknown) (unknown) (no date) (unknown) (unknown) PFSH (units unknown) (unknown) (unknown) (no date) (unknown) (unknown) POC Urine Dip Today R30.0 - Dysuria (units unknown) (unknown) (unknown) (no date) (unknown) (unknown) Pacemaker (units unknown) (unknown) (unknown) (no date) (unknown) (unknown) Patient: Yoseph Corado MR#: [id number] (units unknown) (unknown) (unknown) (no date) (unknown) (unknown) Position Sitting (un its unknown) (unknown) (unknown) (no date) (unknown) (unknown) Procedure perf ormed by: Kathia Rouse (units unknown) (unknown) (unknown) (no date) (unknown) (unknown) Pulse 64 (units unknown) (unknown) (unknown) (no date) (unknown) (unknown) Pulse Oximetry (%) 1 00 (units unknown) (unknown) (unknown) (no date) (unknown) (unknown) Pulse Source Monitor (units unknown) (unknown) (unknown) (no date) (unknown) (unknown) Reason For Visit (un its unknown) (unknown) (unknown) (no date) (unknown) (unknown) Residual: post void (units unknown) (unknown) (unknown) (no date) (unknown) (unknown) Results (units unknown) (unknown) (unknown) (no date) (unknown) (unknown) Signed By: (units unknown) (unknown) (unknown) (no date) (unknown) (unknown) Smoking Status : Never smoker (units unknown) (unknown) (unknown) (no date) (unknown) (unknown) Social History (units unknown) (unknown) (unknown) (no date) (unknown) (unknown) Son Melanoma (units unknown) (unknown) (unknown) (no date) (unknown) (unknown) Surgical Histo ry (Updated 09/21/22 @ 10:41 by Bambi Shukla MA) (units unknown) (unknown) (unknown) (no date) (unknown) (unknown) This note may have been all or partially generated using voice recognition (units unknown) (unknown) (unknown) (no date) (unknown) (unknown) Tobacco Status (unit s unknown) (unknown) (unknown) (no date) (unknown) (unknown) Urine Appearan ce Clear Last Edit by Bambi Shukla MA on 09/21/22 11:18 (units unknown) (unknown) (unknown) (no date) (unknown) (unknown) Urine Bilirubi n Negative Last Edit by Bambi Shukla MA on 09/21/22 11:18 (units unknown) (unknown) (unknown) (no date) (unknown) (unknown) Urine Blood Ne gative Last Edit by Bambi Shukla MA on 09/21/22 11:18 (units unknown) (unknown) (unknown) (no date) (unknown) (unknown) Urine Color Da rk Yellow Last Edit by Bambi Shukla MA on 09/21/22 11:18 (units unknown) (unknown) (unknown) (no date) (unknown) (unknown) Urine Culture Today N39.0 - Urinary tract infection, site not specified (units unknown) (unknown) (unknown) (no date) (unknown) (unknown) Urine Dipstick (unit s unknown) (unknown) (unknown) (no date) (unknown) (unknown) Urine Glucose Negative mg/dL Last Edit by Bambi Shukla MA on 09/21/22 11: (units unknown) (unknown) (unknown) (no date) (unknown) (unknown) Urine Ketones Negative Last Edit by Bambi Shukla MA on 09/21/22 11:18 (units unknown) (unknown) (unknown) (no date) (unknown) (unknown) Urine Leukocyt e Esterase 2+ 125 Rosie/uL Last Edit by Bambi Shukla MA on (units unknown) (unknown) (unknown) (no date) (unknown) (unknown) Urine Nitrate Negative Last Edit by Bambi Shukla MA on 09/21/22 11:18 (units unknown) (unknown) (unknown) (no date) (unknown) (unknown) Urine Protein +- 15 mg/dL Last Edit by Bambi Shukla MA on 09/21/22 11:18 (units unknown) (unknown) (unknown) (no date) (unknown) (unknown) Urine Specific [place] 1.015 Last Edit by Bambi Shukla MA on 09/21/22 11 (units unknown) (unknown) (unknown) (no date) (unknown) (unknown) Urine Urobilin ogen - 0.2 mg/dL Last Edit by Bambi Shukla MA on (units unknown) (unknown) (unknown) (no date) (unknown) (unknown) Urine pH 6.0 L ast Edit by Bambi Shukla MA on 09/21/22 11:18 (units unknown) (unknown) (unknown) (no date) (unknown) (unknown) Urology Office Visit (units unknown) (unknown) (unknown) (no date) (unknown) (unknown) 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 - Urinary outflow obstruction (units unknown) (unknown) (unknown) (no date) (unknown) (unknown) Vitals (units unknown) (unknown) (unknown) (no date) (unknown) (unknown) Weight 140 lb 1 oz ( units unknown) (unknown) (unknown) (no date) (unknown) (unknown) alcohol intake : current (units unknown) (unknown) (unknown) (no date) (unknown) (unknown) apixaban 5 mg tablet (Eliquis) 5 mg PO BID blood thinner 06/16/22 [History (units unknown) (unknown) (unknown) (no date) (unknown) (unknown) binimetinib 15 mg tablet (Mektovi) 30 mg PO Q12H 09/19/22 [History Confirmed (units unknown) (unknown) (unknown) (no date) (unknown) (unknown) encorafenib 50 mg capsule (Braftovi) 300 mg PO DAILY 09/19/22 [History Confirmed (units unknown) (unknown) (unknown) (no date) (unknown) (unknown) furosemide 20 mg tablet 20 mg PO Q OTHER DAY 09/19/22 [History Confirmed (units unknown) (unknown) (unknown) (no date) (unknown) (unknown) gabapentin 300 mg capsule 300 mg PO BID 06/16/22 [History Confirmed 09/21/22] (units unknown) (unknown) (unknown) (no date) (unknown) (unknown) have occurred. If there are any questions, please contact the Medical Records (units unknown) (unknown) (unknown) (no date) (unknown) (unknown) household memb ers: spouse (units unknown) (unknown) (unknown) (no date) (unknown) (unknown) may occur. Occ asional wrong-word or 'sound-alike' substitutions may have (units unknown) (unknown) (unknown) (no date) (unknown) (unknown) meq PO .every other day 09/19/22 [History Confirmed 09/21/22] (units unknown) (unknown) (unknown) (no date) (unknown) (unknown) occurred due t o the inherent limitations of voice recognition software. Please (units unknown) (unknown) (unknown) (no date) (unknown) (unknown) oxycodone 5 mg tablet 5 mg PO Q8H PRN 09/19/22 [History] (units unknown) (unknown) (unknown) (no date) (unknown) (unknown) pneumococcal 7 -valent conjugate to [From Prevnar] Adverse Reaction (units unknown) (unknown) (unknown) (no date) (unknown) (unknown) potassium chlo ride 20 mEq tablet,extended release(part/cryst) (Klor-Con M) 20 (units unknown) (unknown) (unknown) (no date) (unknown) (unknown) read the note carefully and recognize, using context, where these substitutions (units unknown) (unknown) (unknown) (no date) (unknown) (unknown) software. Alth ough every effort is made to edit content, arterial embalmer errors (units unknown) (unknown) (unknown) (no date) (unknown) (unknown) swelling of [place] nds and feet x 4 mos after. (units unknown) (unknown) (unknown) (no date) (unknown) (unknown) tamsulosin 0.4 mg capsule 0.4 mg PO DAILY 09/19/22 [History Confirmed 09/21/22] (units unknown) (unknown) (unknown) (no date) (unknown) (unknown) therapeutic multivitamin 1 tab PO DAILY 09/19/22 [History Confirmed 09/21/22] (units unknown) (unknown) Result panel 8 (unknown) (no date) (unknown) (unknown) (no value) (units unknown) (unknown) (unknown) (no date) (unknown) (unknown) (1) Lower urin amilcar tract symptoms: (units unknown) (unknown) (unknown) (no date) (unknown) (unknown) (2) History of sepsi s: (units unknown) (unknown) (unknown) (no date) (unknown) (unknown) (3) History of urinary retention: (units unknown) (unknown) (unknown) (no date) (unknown) (unknown) (Intermediate, Verified 09/21/22 10:37) (units unknown) (unknown) (unknown) (no date) (unknown) (unknown) [id number] (units unknown) (unknown) (unknown) (no date) (unknown) (unknown) 09/21/22 11:18 (unit s unknown) (unknown) (unknown) (no date) (unknown) (unknown) 09/21/22 1325 (units unknown) (unknown) (unknown) (no date) (unknown) (unknown) 09/21/22 (units unknown) (unknown) (unknown) (no date) (unknown) (unknown) 09/21/22] (units unknown) (unknown) (unknown) (no date) (unknown) (unknown) 11:12 (units unknown) (unknown) (unknown) (no date) (unknown) (unknown) 11:18 (units unknown) (unknown) (unknown) (no date) (unknown) (unknown) 18 (units unknown) (unknown) (unknown) (no date) (unknown) (unknown) 3 (units unknown) (unknown) (unknown) (no date) (unknown) (unknown) 87yr old male presents today for urinary outflow obstruction (units unknown) (unknown) (unknown) (no date) (unknown) (unknown) :18 (units unknown) (unknown) (unknown) (no date) (unknown) (unknown) Abdominal exam : Soft, nontender, without palpable mass (units unknown) (unknown) (unknown) (no date) (unknown) (unknown) Accompanied by: (units unknown) (unknown) (unknown) (no date) (unknown) (unknown) Add'l Complaint: (un its unknown) (unknown) (unknown) (no date) (unknown) (unknown) Age/Sex: 87 / M Date of Service: (units unknown) (unknown) (unknown) (no date) (unknown) (unknown) All systems re viewed + are unremarkable except as noted in HPI and below (And (units unknown) (unknown) (unknown) (no date) (unknown) (unknown) Allergies (units unknown) (unknown) (unknown) (no date) (unknown) (unknown) [place] [address] (units unknown) (unknown) (unknown) (no date) (unknown) (unknown) Assessment + Plan (u nits unknown) (unknown) (unknown) (no date) (unknown) (unknown) Assessment and plan: Patient with a history of urinary retention urinary tract (units unknown) (unknown) (unknown) (no date) (unknown) (unknown) Asthma (units unknown) (unknown) (unknown) (no date) (unknown) (unknown) Atrial fibrillation (units unknown) (unknown) (unknown) (no date) (unknown) (unknown) Attending Dr: Matt Nicole MD (units unknown) (unknown) (unknown) (no date) (unknown) (unknown) BMI 19.0 (units unknown) (unknown) (unknown) (no date) (unknown) (unknown) BP 109/65 (units unknown) (unknown) (unknown) (no date) (unknown) (unknown) Back: Without CVA or flank tenderness (units unknown) (unknown) (unknown) (no date) (unknown) (unknown) Billing- Post Void Residual: Post Void Residual- 46539 (units unknown) (unknown) (unknown) (no date) (unknown) (unknown) Bladder volume : PVR=18ml (units unknown) (unknown) (unknown) (no date) (unknown) (unknown) Blood Pressure Location Rt brachial (units unknown) (unknown) (unknown) (no date) (unknown) (unknown) Cardiovascular exam: Paced rhythm (units unknown) (unknown) (unknown) (no date) (unknown) (unknown) Chief Complaint (uni ts unknown) (unknown) (unknown) (no date) (unknown) (unknown) Chief Complain t: Lower urinary tract symptoms (units unknown) (unknown) (unknown) (no date) (unknown) (unknown) Chronic anticoagulation (units unknown) (unknown) (unknown) (no date) (unknown) (unknown) Code(s): (units unknown) (unknown) (unknown) (no date) (unknown) (unknown) Confirmed 09/21/22] (units unknown) (unknown) (unknown) (no date) (unknown) (unknown) Const (units unknown) (unknown) (unknown) (no date) (unknown) (unknown) : 4 Acct:[id number] (units unknown) (unknown) (unknown) (no date) (unknown) (unknown) Dept at . (units unknown) (unknown) (unknown) (no date) (unknown) (unknown) Details: (units unknown) (unknown) (unknown) (no date) (unknown) (unknown) Documented By: Matt Nicole MD 09/21/22 1036 (units unknown) (unknown) (unknown) (no date) (unknown) (unknown) Essential hypertensi on (units unknown) (unknown) (unknown) (no date) (unknown) (unknown) Exam Narrative (unit s unknown) (unknown) (unknown) (no date) (unknown) (unknown) Exam Narrative: (uni ts unknown) (unknown) (unknown) (no date) (unknown) (unknown) Exam (units unknown) (unknown) (unknown) (no date) (unknown) (unknown) Family History (units unknown) (unknown) (unknown) (no date) (unknown) (unknown) Father d Diabetes mellitus (units unknown) (unknown) (unknown) (no date) (unknown) (unknown) General: This is an awake, alert, oriented, pleasant, male who (units unknown) (unknown) (unknown) (no date) (unknown) (unknown) Genitourinary exam: Normal male (units unknown) (unknown) (unknown) (no date) (unknown) (unknown) HPI (units unknown) (unknown) (unknown) (no date) (unknown) (unknown) Health Managem ent reviewed with patient: Yes (units unknown) (unknown) (unknown) (no date) (unknown) (unknown) Health Management (u nits unknown) (unknown) (unknown) (no date) (unknown) (unknown) Height 6 ft (units unknown) (unknown) (unknown) (no date) (unknown) (unknown) History of mook er biopsy (units unknown) (unknown) (unknown) (no date) (unknown) (unknown) History of melanoma (units unknown) (unknown) (unknown) (no date) (unknown) (unknown) History of per manent cardiac pacemaker placement (units unknown) (unknown) (unknown) (no date) (unknown) (unknown) History of sepsis (u nits unknown) (unknown) (unknown) (no date) (unknown) (unknown) History of uri nary retention (units unknown) (unknown) (unknown) (no date) (unknown) (unknown) History of uri nary retention, history of sepsis, history of urinary tract (units unknown) (unknown) (unknown) (no date) (unknown) (unknown) Intake Note: (units unknown) (unknown) (unknown) (no date) (unknown) (unknown) Intake perform ed by: Bambi Shukla (units unknown) (unknown) (unknown) (no date) (unknown) (unknown) Intake (units unknown) (unknown) (unknown) (no date) (unknown) (unknown) Intake- Clincial Sta ff (units unknown) (unknown) (unknown) (no date) (unknown) (unknown) [facility] (unit s unknown) (unknown) (unknown) (no date) (unknown) (unknown) Loc: [facility] (units unknown) (unknown) (unknown) (no date) (unknown) (unknown) Lower urinary tract symptoms (units unknown) (unknown) (unknown) (no date) (unknown) (unknown) Lung : Clear c oarse breath sounds (units unknown) (unknown) (unknown) (no date) (unknown) (unknown) Medical Histor y (Updated 09/21/22 @ 13:24 by Matt Nicole MD) (units unknown) (unknown) (unknown) (no date) (unknown) (unknown) Medications (units unknown) (unknown) (unknown) (no date) (unknown) (unknown) Mother d No problems noted. (units unknown) (unknown) (unknown) (no date) (unknown) (unknown) Office Procedures (u nits unknown) (unknown) (unknown) (no date) (unknown) (unknown) Orders (units unknown) (unknown) (unknown) (no date) (unknown) (unknown) Orders: (units unknown) (unknown) (unknown) (no date) (unknown) (unknown) Oxygen Deliver y Method room air (units unknown) (unknown) (unknown) (no date) (unknown) (unknown) PFSH (units unknown) (unknown) (unknown) (no date) (unknown) (unknown) POC Urine Dip Today R30.0 - Dysuria (units unknown) (unknown) (unknown) (no date) (unknown) (unknown) Pacemaker (units unknown) (unknown) (unknown) (no date) (unknown) (unknown) Patient: Yoseph Corado MR#: [id number] (units unknown) (unknown) (unknown) (no date) (unknown) (unknown) Plan (units unknown) (unknown) (unknown) (no date) (unknown) (unknown) Position Sitting (un its unknown) (unknown) (unknown) (no date) (unknown) (unknown) Procedure perf ormed by: Kathia Rouse (units unknown) (unknown) (unknown) (no date) (unknown) (unknown) Pulse 64 (units unknown) (unknown) (unknown) (no date) (unknown) (unknown) Pulse Oximetry (%) 1 00 (units unknown) (unknown) (unknown) (no date) (unknown) (unknown) Pulse Source Monitor (units unknown) (unknown) (unknown) (no date) (unknown) (unknown) R39.9 - Unspec ified symptoms and signs involving the genitourinary system (units unknown) (unknown) (unknown) (no date) (unknown) (unknown) ROS (units unknown) (unknown) (unknown) (no date) (unknown) (unknown) Reason For Visit (un its unknown) (unknown) (unknown) (no date) (unknown) (unknown) Residual: post void (units unknown) (unknown) (unknown) (no date) (unknown) (unknown) Results (units unknown) (unknown) (unknown) (no date) (unknown) (unknown) Signed By: <Electronically signed by Matt Nicole MD> (units unknown) (unknown) (unknown) (no date) (unknown) (unknown) Signed (units unknown) (unknown) (unknown) (no date) (unknown) (unknown) Smoking Status : Never smoker (units unknown) (unknown) (unknown) (no date) (unknown) (unknown) Social History (units unknown) (unknown) (unknown) (no date) (unknown) (unknown) Son Melanoma (units unknown) (unknown) (unknown) (no date) (unknown) (unknown) Status: Acute (units unknown) (unknown) (unknown) (no date) (unknown) (unknown) Surgical Histo ry (units unknown) (unknown) (unknown) (no date) (unknown) (unknown) This 87-year-o ld male [facility] as a new patient with complaint of (units unknown) (unknown) (unknown) (no date) (unknown) (unknown) This note may have been all or partially generated using voice recognition (units unknown) (unknown) (unknown) (no date) (unknown) (unknown) Tobacco Status (unit s unknown) (unknown) (unknown) (no date) (unknown) (unknown) Urine Appearan ce Clear Last Edit by Bambi hSukla MA on 09/21/22 11:18 (units unknown) (unknown) (unknown) (no date) (unknown) (unknown) Urine Bilirubi n Negative Last Edit by Bambi Shukla MA on 09/21/22 11:18 (units unknown) (unknown) (unknown) (no date) (unknown) (unknown) Urine Blood Ne gative Last Edit by Bambi Shukla MA on 09/21/22 11:18 (units unknown) (unknown) (unknown) (no date) (unknown) (unknown) Urine Color Da rk Yellow Last Edit by Bambi Shukla MA on 09/21/22 11:18 (units unknown) (unknown) (unknown) (no date) (unknown) (unknown) Urine Culture Today N39.0 - Urinary tract infection, site not specified (units unknown) (unknown) (unknown) (no date) (unknown) (unknown) Urine Dipstick (unit s unknown) (unknown) (unknown) (no date) (unknown) (unknown) Urine Glucose Negative mg/dL Last Edit by Bambi Shukla MA on 09/21/22 11: (units unknown) (unknown) (unknown) (no date) (unknown) (unknown) Urine Ketones Negative Last Edit by Bambi Shukla MA on 09/21/22 11:18 (units unknown) (unknown) (unknown) (no date) (unknown) (unknown) Urine Leukocyt e Esterase 2+ 125 Rosie/uL Last Edit by Bambi Shukla MA on (units unknown) (unknown) (unknown) (no date) (unknown) (unknown) Urine Nitrate Negative Last Edit by Bambi Shukla MA on 09/21/22 11:18 (units unknown) (unknown) (unknown) (no date) (unknown) (unknown) Urine Protein +- 15 mg/dL Last Edit by Bambi Shukla MA on 09/21/22 11:18 (units unknown) (unknown) (unknown) (no date) (unknown) (unknown) Urine Specific [place] 1.015 Last Edit by Bambi Shukla MA on 09/21/22 11 (units unknown) (unknown) (unknown) (no date) (unknown) (unknown) Urine Urobilin ogen - 0.2 mg/dL Last Edit by Bambi Shukla MA on 2 (units unknown) (unknown) (unknown) (no date) (unknown) (unknown) Urine pH 6.0 L ast Edit by Bambi Shukla MA on 09/21/22 11:18 (units unknown) (unknown) (unknown) (no date) (unknown) (unknown) Urology Office Visit (units unknown) (unknown) (unknown) (no date) (unknown) (unknown) 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 - Urinary outflow obstruction (units unknown) (unknown) (unknown) (no date) (unknown) (unknown) Vitals (units unknown) (unknown) (unknown) (no date) (unknown) (unknown) Weight 140 lb 1 oz ( units unknown) (unknown) (unknown) (no date) (unknown) (unknown) Z86.19 - Perso nal history of other infectious and parasitic diseases (units unknown) (unknown) (unknown) (no date) (unknown) (unknown) Z87.898 - Pers onal history of other specified conditions (units unknown) (unknown) (unknown) (no date) (unknown) (unknown) alcohol intake : current (units unknown) (unknown) (unknown) (no date) (unknown) (unknown) and history we re obtained through his who was a very good historian. They (units unknown) (unknown) (unknown) (no date) (unknown) (unknown) apixaban 5 mg tablet (Eliquis) 5 mg PO BID blood thinner 06/16/22 [History (units unknown) (unknown) (unknown) (no date) (unknown) (unknown) appears to hav e some obvious memory deficit. He is in no acute distress. (units unknown) (unknown) (unknown) (no date) (unknown) (unknown) basis. 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 And at the request we will see him back on a as needed (units unknown) (unknown) (unknown) (no date) (unknown) (unknown) encorafenib 50 mg capsule (Braftovi) 300 mg PO DAILY 09/19/22 [History Confirmed (units unknown) (unknown) (unknown) (no date) (unknown) (unknown) esterase we wi ll send it for culture to make sure there is no occult culture (units unknown) (unknown) (unknown) (no date) (unknown) (unknown) feel that he i s voiding well they report that the catheter was removed (units unknown) (unknown) (unknown) (no date) (unknown) (unknown) furosemide 20 mg tablet 20 mg PO Q OTHER DAY 09/19/22 [History Confirmed (units unknown) (unknown) (unknown) (no date) (unknown) (unknown) gabapentin 300 mg capsule 300 mg PO BID 06/16/22 [History Confirmed 09/21/22] (units unknown) (unknown) (unknown) (no date) (unknown) (unknown) have occurred. If there are any questions, please contact the Medical Records (units unknown) (unknown) (unknown) (no date) (unknown) (unknown) he has better flow he does have some cognitive impairment and most of his story (units unknown) (unknown) (unknown) (no date) (unknown) (unknown) herapy use, ch ronic anticoagulation, pacemaker, history of atrial fibrillation. (units unknown) (unknown) (unknown) (no date) (unknown) (unknown) household memb ers: spouse (units unknown) (unknown) (unknown) (no date) (unknown) (unknown) infection, his tory of Brice catheterization, metastatic melanoma, current chemot (units unknown) (unknown) (unknown) (no date) (unknown) (unknown) infection, sep sis, chemotherapy, metastatic melanoma. At this point it appears (units unknown) (unknown) (unknown) (no date) (unknown) (unknown) lower urinary tract symptoms. He had been seen originally because of urinary (units unknown) (unknown) (unknown) (no date) (unknown) (unknown) may occur. Occ asional wrong-word or 'sound-alike' substitutions may have (units unknown) (unknown) (unknown) (no date) (unknown) (unknown) meq PO .every other day 09/19/22 [History Confirmed 09/21/22] (units unknown) (unknown) (unknown) (no date) (unknown) (unknown) occurred due t o the inherent limitations of voice recognition software. Please (units unknown) (unknown) (unknown) (no date) (unknown) (unknown) oxycodone 5 mg tablet 5 mg PO Q8H PRN 09/19/22 [History] (units unknown) (unknown) (unknown) (no date) (unknown) (unknown) patient does c ontinue on antibiotics and has 2 more weeks. (units unknown) (unknown) (unknown) (no date) (unknown) (unknown) patient was [place] ving some incontinence this is now abated and they both think that (units unknown) (unknown) (unknown) (no date) (unknown) (unknown) pneumococcal 7 -valent conjugate to [From Prevnar] Adverse Reaction (units unknown) (unknown) (unknown) (no date) (unknown) (unknown) postvoid resid ual today is 18 he does have some leukocyte esterase so we will (units unknown) (unknown) (unknown) (no date) (unknown) (unknown) potassium chlo ride 20 mEq tablet,extended release(part/cryst) (Klor-Con M) 20 (units unknown) (unknown) (unknown) (no date) (unknown) (unknown) problem list) (units unknown) (unknown) (unknown) (no date) (unknown) (unknown) proximally 2 w eeks ago. This was inserted under circumstances that it was felt (units unknown) (unknown) (unknown) (no date) (unknown) (unknown) read the note carefully and recognize, using context, where these substitutions (units unknown) (unknown) (unknown) (no date) (unknown) (unknown) report he is n ever had anything like this before and at this point do not think (units unknown) (unknown) (unknown) (no date) (unknown) (unknown) retention and a Brice catheter this has been removed by his oncologist. In they (units unknown) (unknown) (unknown) (no date) (unknown) (unknown) software. Alth ough every effort is made to edit content, arterial embalmer errors (units unknown) (unknown) (unknown) (no date) (unknown) (unknown) swelling of whit[place] nds and feet x 4 mos after. (units unknown) (unknown) (unknown) (no date) (unknown) (unknown) tamsulosin 0.4 mg capsule 0.4 mg PO DAILY 09/19/22 [History Confirmed 09/21/22] (units unknown) (unknown) (unknown) (no date) (unknown) (unknown) that all of hi s symptoms have resolved and they feel that he is doing well (units unknown) (unknown) (unknown) (no date) (unknown) (unknown) that he had ur inary retention sepsis urinary tract infection. His situation is (units unknown) (unknown) (unknown) (no date) (unknown) (unknown) that he has a problem and in looking at his urine there is some leukocyte (units unknown) (unknown) (unknown) (no date) (unknown) (unknown) therapeutic multivitamin 1 tab PO DAILY 09/19/22 [History Confirmed 09/21/22] (units unknown) (unknown) (unknown) (no date) (unknown) (unknown) therapeutic tr eatment and is somewhat immune compromised. Again the catheter (units unknown) (unknown) (unknown) (no date) (unknown) (unknown) was removed an d they feel he is voiding well his postvoid residual is 18. The (units unknown) (unknown) Result panel 9 (unknown) (no date) (unknown) (unknown) 60,000 - 70,000 cfu/ml (unknown) (unknown) (no date) (unknown) (unknown) GPCGram positive aileen ci (units unknown) (unknown) (unknown) (no date) (unknown) (unknown) Identification and Sensitivity to Follow (units unknown) (unknown) Result panel 10 (unknown) (no date) (unknown) (unknown) >=16 (units unknown) (unknown) (unknown) (no date) (unknown) (unknown) >=32 (units unknown) (unknown) (unknown) (no date) (unknown) (unknown) <=0.5 (units unknown) (unknown) (unknown) (no date) (unknown) (unknown) 1 (units unknown) (unknown) (unknown) (no date) (unknown) (unknown) 2 (units unknown) (unknown) (unknown) (no date) (unknown) (unknown) 60,000 - 70,000 cfu/ml (unknown) (unknown) (no date) (unknown) (unknown) 64 (units unknown) (unknown) (unknown) (no date) (unknown) (unknown) NEGATIVE (units unknown) (unknown) (unknown) (no date) (unknown) (unknown) No Further Workup (u nits unknown) (unknown) (unknown) (no date) (unknown) (unknown) STRFACEnteroco ccus faecium (units unknown) (unknown) (unknown) (no date) (unknown) (unknown) SYN-S (units unknown) (unknown) Social History date description facility 2022-09-21 00:00 Never smoked tobacco ([facility] Vital Signs date measurement value units 2022-09-21 00:00 BMI 19.0 kg/m2 2022-09-21 00:00 BP_diastolic 65 mmHg 2022-09-21 00:00 BP_systolic 109 mmHg 2022-09-21 00:00 heart_rate 64 /min 2022-09-21 00:00 height_metric 182.88 cm 2022-09-21 00:00 height_standard 72 in 2022-09-21 00:00 o2_saturation 100 % 2022-09-21 00:00 weight_metric 63.53 kg 2022-09-21 00:00 weight_standard 140.06 lb
--- NOTE | 2022-10-05 17:48 | CT Report ---
PROCEDURE: HEAD WO INDICATIONS: Head injury, anticoagulated TECHNIQUE: Noncontrast 4.5 mm thick angled axial sections acquired from the foramen magnum to the vertex. For r adiation dose reduction, the following was used: automated exposure control, adjustment of mA and/or kV according to patient size. COMPARISON: CT dated 09/08/2022 FINDINGS: Image quality: Excellent. CSF spaces: Basal cisterns are patent. No extra-axial fluid collections. Ventricles are normal in size and shape. Brain: No midline shift. No intracranial masses or hemorrhage. Amaro-white matter interface is norm al. Skull and face: Calvarium and visualized facial bones are intact, without suspicious lesions. Sinuses: Visualized sinuses and mastoids are clear. IMPRESSION: No acute intracranial abnormality. Reviewed by: Reuben Hayes MD on 10/05/2022 5:46 PM PDT Approved by: Reuben Hayes MD on 10/05/2022 5:46 PM PDT Station ID: [id number]
--- NOTE | 2022-10-05 17:49 | CT Report ---
PROCEDURE: CERVICAL SPINE WO INDICATIONS: Head injury, anticoagulated TECHNIQUE: Noncontrast 3 mm thick sections acquired from the skull base to the T4 level. Sagittal and coronal r eformats were then constructed. For radiation dose reduction, the following was used: automated exp osure control, adjustment of mA and/or kV according to patient size. COMPARISON: CT dated 09/08/2022 FINDINGS: Image quality: Excellent. Bones: There is a healing left medial first rib fracture, as before. No evidence of acute fracture in volving the cervical spine. Multilevel degenerative disc and facet disease is present. Visualized sup erior ribs are intact. Soft tissues: Prevertebral soft tissues are normal in thickness. No paravertebral hematomas. No ap ical pneumothoraces. IMPRESSION: 1. No evidence of cervical spine fracture. 2. Healing left first rib fracture. Reviewed by: Reuben Hayes MD on 10/05/2022 5:48 PM PDT Approved by: Reuben Hayes MD on 10/05/2022 5:48 PM PDT Station ID: [id number]
[2022-10-05 18:05] VITALS: BP 145/69
== END 2022-10-05 18:05 | disposition home or self-care (01) ==
LOC: ED 16:31
DX: S00.81XA Abrasion of other part of head, initial encounter (principal); S51.811A Laceration without foreign body of right forearm, initial encounter; W19.XXXA Unspecified fall, initial encounter; Z79.01 Long term (current) use 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s; I48.91 Unspecified atrial fibrillation; Z66 Do not resuscitate; Z95.0 Presence of cardiac pacemaker; Z23 Encounter for immunization; Z71.85 Encounter for immunization safety counseling
CPT/HCPCS: 12002; 12013; 90471; 99283; 99284

== ENCOUNTER 2022-10-19 20:21 | Inpatient (IN) | payer MEDICARE, OTHER ==
--- OUTSIDE RECORDS SUMMARY | 2022-10-19 20:35 | EXTERNAL MEDICAL SUMMARY RPT | Continuity of Care Document ---
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 Name Role Phone Unavailable Unavailable Unavailable Lucien Lan Unavailable Unavailable Medications date description facility 2022-09-19 00:00 Oxycodone [facility] 2022-09-19 00:00 Potassium Chloride [facility] 2022-09-19 00:00 Furosemide [facility] 2022-09-19 00:00 Tamsulosin [facility] Problems date description facility 2022-09-21 12:03 Urinary tract infection, site n ot specified [facility] 2022-09-22 00:50 Urinary tract infection, site n ot specified [facility] 2022-09-22 13:51 Urinary tract infection, site n ot specified [facility] 2022-09-26 13:23 Urinary tract infection, site n ot specified [facility] Results/Labs test date author facility value unit interpretation Result panel 1 (unknown) (no date) (unknown) (unknown) (no value) (units unknown) (unknown) (unknown) (no date) (unknown) (unknown) (Intermediate, Verified 09/21/22 10:37) (units unknown) (unknown) (unknown) (no date) (unknown) (unknown) [id number] (units unknown) (unknown) (unknown) (no date) (unknown) (unknown) 09/21/22 (units unknown) (unknown) (unknown) (no date) (unknown) (unknown) 09/21/22] (units unknown) (unknown) (unknown) (no date) (unknown) (unknown) Age/Sex: 87 / M Date of Service: (units unknown) (unknown) (unknown) (no date) (unknown) (unknown) Allergies (units unknown) (unknown) (unknown) (no date) (unknown) (unknown) [place] [address] (units unknown) (unknown) (unknown) (no date) (unknown) (unknown) Asthma (units unknown) (unknown) (unknown) (no date) (unknown) (unknown) Atrial fibrillation (units unknown) (unknown) (unknown) (no date) (unknown) (unknown) Attending Dr: Matt Nicole MD (units unknown) (unknown) (unknown) (no date) (unknown) (unknown) Chronic anticoagulation (units unknown) (unknown) (unknown) (no date) (unknown) (unknown) Confirmed 09/21/22] (units unknown) (unknown) (unknown) (no date) (unknown) (unknown) : 4 Acct:[id number] (units unknown) (unknown) (unknown) (no date) (unknown) [...] (Updated 06/17/22 @ 00:55 by Hawa Michael [facility]) (units unknown) (unknown) (unknown) (no date) (unknown) [...] (unknown) (no date) (unknown) (unknown) 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 [facility] every effort is made to edit content, spanish instructor errors (units unknown) (unknown) (unknown) (no date) [...] unknown) (unknown) (unknown) (no date) (unknown) (unknown) [id number] (units unknown) (unknown) (unknown) (no date) (unknown) [...] unknown) (unknown) (unknown) (no date) (unknown) (unknown) [place] [address] (units unknown) (unknown) (unknown) (no date) (unknown) (unknown) Asthma (units unknown) (unknown) (unknown) (no date) (unknown) (unknown) Atrial fibrillation (units unknown) (unknown) (unknown) (no date) (unknown) (unknown) Attending Dr: Matt Nicole MD (units unknown) (unknown) (unknown) (no date) (unknown) (unknown) Chronic anticoagulation (units unknown) (unknown) (unknown) (no date) (unknown) (unknown) Confirmed 09/21/22] (units unknown) (unknown) (unknown) (no date) (unknown) (unknown) : 4 Acct:[id number] (units unknown) (unknown) (unknown) (no date) (unknown) [...] (Updated 06/17/22 @ 00:55 by Hawa Michael [facility]) (units unknown) (unknown) (unknown) (no date) (unknown) [...] (unknown) (no date) (unknown) (unknown) 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 - Urinary 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 obstruction (units unknown) (unknown) [...] every effort is made to edit content, spanish instructor errors (units unknown) (unknown) (unknown) (no date) [...] unknown) (unknown) (unknown) (no date) (unknown) (unknown) [id number] (units unknown) (unknown) (unknown) (no date) (unknown) [...] (unknown) (unknown) (no date) (unknown) (unknown) [place] [address] (units unknown) (unknown) (unknown) (no date) (unknown) [...] (unknown) (no date) (unknown) (unknown) : 4 Acct:[id number] (units unknown) (unknown) (unknown) (no date) (unknown) [...] (unknown) (no date) (unknown) (unknown) Urine Specific [place] 1.015 Last Edit by Bambi Shukla MA [...] (unknown) (no date) (unknown) (unknown) 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 - Urinary outflow obstruction (units unknown) (unknown) [...] every effort is made to edit content, spanish instructor errors (units unknown) (unknown) (unknown) (no date) [...] unknown) (unknown) (unknown) (no date) (unknown) (unknown) [id number] (units unknown) (unknown) (unknown) (no date) (unknown) [...] unknown) (unknown) (unknown) (no date) (unknown) (unknown) [place] [address] (units unknown) (unknown) (unknown) (no date) (unknown) [...] Billing- Post Void Residual: Post Void Residual- 30188 (units unknown) (unknown) (unknown) (no date) (unknown) (unknown) Bladder volume : PVR=18ml (units unknown) (unknown) (unknown) (no date) (unknown) (unknown) Blood Pressure Location Rt brachial (units unknown) (unknown) (unknown) (no date) (unknown) (unknown) Chronic anticoagulation (units unknown) (unknown) (unknown) (no date) (unknown) (unknown) Confirmed 09/21/22] (units unknown) (unknown) (unknown) (no date) (unknown) (unknown) : 4 Acct:[id number] (units unknown) (unknown) (unknown) (no date) (unknown) [...] (Updated 06/17/22 @ 00:55 by Hawa Michael [facility]) (units unknown) (unknown) (unknown) (no date) (unknown) [...] (unknown) (no date) (unknown) (unknown) Urine Specific [place] 1.015 Last Edit by Bambi Shukla MA [...] (unknown) (no date) (unknown) (unknown) 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 - Urinary outflow obstruction (units unknown) (unknown) [...] every effort is made to edit content, spanish instructor errors (units unknown) (unknown) (unknown) (no date) [...] unknown) (unknown) (unknown) (no date) (unknown) (unknown) [id number] (units unknown) (unknown) (unknown) (no date) (unknown) [...] unknown) (unknown) (unknown) (no date) (unknown) (unknown) [place] [address] (units unknown) (unknown) (unknown) (no date) (unknown) [...] Billing- Post Void Residual: Post Void Residual- 31846 (units unknown) (unknown) (unknown) (no date) (unknown) (unknown) Bladder volume : PVR=18ml (units unknown) (unknown) (unknown) (no date) (unknown) (unknown) Blood Pressure Location Rt brachial (units unknown) (unknown) (unknown) (no date) (unknown) (unknown) Chronic anticoagulation (units unknown) (unknown) (unknown) (no date) (unknown) (unknown) Confirmed 09/21/22] (units unknown) (unknown) (unknown) (no date) (unknown) (unknown) : 4 Acct:[id number] (units unknown) (unknown) (unknown) (no date) (unknown) (unknown) Dept at [phone]. 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 - Urinary outflow obstruction (units unknown) (unknown) [...] every effort is made to edit content, spanish instructor errors (units unknown) (unknown) (unknown) (no date) [...] unknown) (unknown) (unknown) (no date) (unknown) (unknown) [id number] (units unknown) (unknown) (unknown) (no date) (unknown) [...] (unknown) (no date) (unknown) (unknown) [place], [place] [address] (units unknown) (unknown) (unknown) (no date) (unknown) [...] Billing- Post Void Residual: Post Void Residual- 35701 (units unknown) (unknown) (unknown) (no date) (unknown) (unknown) Bladder volume : PVR=18ml (units unknown) (unknown) (unknown) (no date) (unknown) (unknown) Blood Pressure Location Rt brachial (units unknown) (unknown) (unknown) (no date) (unknown) (unknown) Chronic anticoagulation (units unknown) (unknown) (unknown) (no date) (unknown) (unknown) Confirmed 09/21/22] (units unknown) (unknown) (unknown) (no date) (unknown) (unknown) : 4 Acct:[id number] (units unknown) (unknown) (unknown) (no date) (unknown) [...] unknown) (unknown) (unknown) (no date) (unknown) (unknown) [facility] (unit s unknown) (unknown) (unknown) (no [...] (unknown) (no date) (unknown) (unknown) Urine Specific [place] 1.015 Last Edit by Bambi Shukla MA [...] (unknown) (no date) (unknown) (unknown) 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 - Urinary 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 obstruction (units unknown) (unknown) [...] every effort is made to edit content, spanish instructor errors (units unknown) (unknown) (unknown) (no date) [...] unknown) (unknown) (unknown) (no date) (unknown) (unknown) [id number] (units unknown) (unknown) (unknown) (no date) (unknown) [...] unknown) (unknown) (unknown) (no date) (unknown) (unknown) [place] [address] (units unknown) (unknown) (unknown) (no date) (unknown) [...] Billing- Post Void Residual: Post Void Residual- [id number] (units unknown) (unknown) (unknown) (no date) (unknown) [...] (unknown) (no date) (unknown) (unknown) : 4 Acct:[id number] (units unknown) (unknown) (unknown) (no date) (unknown) (unknown) Dept at [phone]. 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 - Urinary outflow obstruction (units unknown) (unknown) [...] every effort is made to edit content, spanish instructor errors (units unknown) (unknown) (unknown) (no date) [...] description facility 2022-09-21 00:00 Never smoked tobacco ([facility] Vital Signs date measurement value units 2022-09-21 00:00 BMI 19.0 kg/m2 2022-09-21 00:00 BP_diastolic 65 mmHg 2022-09-21 00:00 BP_systolic 109 mmHg 2022-09-21 00:00 heart_rate 64 /min 2022-09-21 00:00 height_metric 182.88 cm 2022-09-21 00:00 height_standard 72 in 2022-09-21 00:00 o2_saturation 100 % 2022-09-21 00:00 weight_metric 63.53 kg 2022-09-21 00:00 weight_standard 140.06 lb
--- NOTE | 2022-10-19 20:40 | ED Physician Documentation ---
History of Present Illness - Stated complaint Stated Complaint: FEVER - Additonal information Additional information: 87-year-old male emergency department for evaluation of fever that began this afternoon. Up to 102.2 at home. 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 He is taking oral chemotherapy. Historically this patient has a history of E. coli bacteremia for which he did require prolonged IV antibiotics. That course finished about 2 weeks ago. At 1 point it was felt that his bacteremia was likely being seeded by a pacemaker which has been removed at [facility] during one of his recent hospitalizations. Patient and son indicate to me that he has been well over the last week to 10 days with no recent cough, congestion, abdominal pain, nausea or vomiting. At baseline patient is somewhat confused. Family thinks he may have dementia though no formal diagnosis of such. He is anticoagulated on Eliquis Patient's and son are at the bedside. They reiterate to me that the patient is a DNR DNI with a focus on comfort. Selective interventions should include antibiotics or fluids if necessary. Antiarrhythmic medications are appropriate, pacing is not. Review of Systems Constitutional: reports: Fever, Weight Loss GI: reports: Abdominal Pain PD PAST MEDICAL HISTORY - Past Medical History Cardiovascular: Hypertension, High cholesterol, Pulmonary embolism, Atrial fibrillation, Other Respiratory: Asthma Neuro: Dementia Endocrine/Autoimmune: None GI: GERD (w a UMER in 2002), Diverticulitis : Benign prostate hypertrophy (w LUTs, s/p TURP then dilation of stricture then TUR of stricture), Incontinence, Nocturia, Kidney stones, Other (erecctile dysfunction, balanitis) HEENT: Other ([place]) Psych: None Musculoskeletal: Osteoarthritis, Chronic back pain Derm: None, Other - Past Surgical History Past Surgical History: Yes General: Appendectomy, Colonoscopy, EGD, Other Cardiovascular: Pacemaker HEENT: Cataracts Derm: Skin cancer surgery - Present Medications Home Medications: Ambulatory Orders Medication Instructions Recorded Confirmed Apixaban [Eliquis] 5 mg PO BID 07/08/22 08/11/22 Gabapentin [Neurontin] 300 mg PO BID 07/08/22 08/11/22 Binimetinib [Mektovi] 30 mg PO BID 07/09/22 08/11/22 Encorafenib [Braftovi] 300 mg PO DAILY 07/09/22 08/11/22 Fluticasone 44 Mcg [Flovent] 2 puffs INH BID 07/16/22 08/11/22 Acetaminophen [Tylenol] 500 mg PO Q4HR PRN tab 07/28/22 08/11/22 Furosemide [Lasix] 20 mg PO MOWEFR #15 tab 07/28/22 08/11/22 Multivitamin W/Minerals [Theragran 1 tab PO DAILYWM #30 tab 07/28/22 08/11/22 M] Nystatin [Nystop] 1 applic TOP BID #15 gm 07/28/22 08/11/22 Potassium Chloride [Klor-Con] 20 meq PO MOWEFR #15 packet 07/28/22 08/11/22 Tamsulosin [Flomax] 0.4 mg PO DAILY #30 cap 07/28/22 08/11/22 oxyCODONE [Roxicodone] 2.5 - 5 mg PO Q8H PRN #10 tablet 08/11/22 MDD 6 - Allergies Allergies/Adverse Reactions: Allergies Allergy/AdvReac Type Severity Reaction Status Date / Time pneumococcal vaccine Allergy Hives Verified 10/19/22 20:39 [From Prevnar 13 (PF)] - Social History Does the pt smoke?: No Smoking Status: Never smoker Does the pt drink ETOH?: Yes Does the pt have substance abuse?: No - Immunizations Immunizations are current?: Yes - POLST Patient has POLST: No POLST Status: DNR (per his who has advanced directives at home) PD ED PE NORMAL - General General: No acute distress, Well developed/nourished. No: Alert and oriented X 3 (Slightly confused. Nonfocal.) - HEENT HEENT: Atraumatic, Moist mucous membranes - Cardiac Cardiac: RRR, No murmur - Respiratory Respiratory: No respiratory distress. No: Clear bilaterally (Coarse rhonchi throughout. No wheeze.) - Abdomen Abdomen: Normal bowel sounds, Soft. No: Non tender (Generalized abdominal tenderness though nonfocal. 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 No: Alert and oriented X 3 (Mild confusion at baseline) Eye Opening: Spontaneous Motor: Obeys Commands Verbal: Confused GCS Score: 14 Results - Vitals Vitals: Vital Signs - 24 hr 10/19/22 20:23 Temperature 38.9 C H Heart Rate 88 Respiratory 18 Rate Blood Pressure 149/66 H O2 Saturation 100 Oxygen O2 Source Room air - EKG (time done) 2052 EKG releavant findings:: EKG personally interpreted by author of this note. Relevant findings are: Rate: Rate (enter#) (88) Rhythm: NSR, Other (PA-C) Intervals: RBBB QRS: Normal Compare to prior EKG: Unchanged from prior EKG Computer interpretation: Agree with computer - Labs Labs: Laboratory Tests 10/19/22 10/19/22 10/19/22 20:20 20:42 20:42 WBC 11.6 H RBC 3.88 L Hgb 10.3 L Hct 32.9 L MCV 84.8 MCH 26.5 L MCHC 31.3 L RDW 16.6 H Plt Count 320 MPV 8.5 Neut # (Auto) 9.3 H Lymph # (Auto) 0.9 L [place] # (Auto) 1.2 H Eos # (Auto) 0.1 Baso # (Auto) 0.1 Absolute Nucleated RBC 0.00 Nucleated RBC % 0.0 Sodium 136 Potassium 4.3 Chloride 103 Carbon Dioxide 25 Anion Gap 8.0 BUN 39 H Creatinine 1.2 Estimated GFR (MDRD) 57 L Glucose 170 H Lactic Acid Calcium 8.8 Total Bilirubin 0.5 AST 23 ALT 25 Alkaline Phosphatase 194 H Total Protein 7.0 Albumin 2.9 L Globulin 4.1 Albumin/Globulin Ratio 0.7 L Urine Color YELLOW Urine Clarity CLEAR Urine pH 5.0 Ur Specific [place] 1.025 Urine Protein TRACE Urine Glucose (UA) NEGATIVE Urine Ketones NEGATIVE Urine Occult Blood NEGATIVE Urine Nitrite NEGATIVE Urine Bilirubin NEGATIVE Urine Urobilinogen 0.2 (NORMAL) Ur Leukocyte Esterase NEGATIVE Urine RBC 0-5 Urine WBC 0-3 Ur Squamous Epith Cells RARE Squamous Urine Crystals 6-10 Calcium Oxalate Amorphous Sediment Few Urine Bacteria None Seen Urine Culture Comments NOT INDICATED 10/19/22 20:42 WBC RBC Hgb Hct MCV MCH MCHC RDW Plt Count MPV Neut # (Auto) Lymph # (Auto) Frederick # (Auto) Eos # (Auto) Baso # (Auto) Absolute Nucleated RBC Nucleated RBC % Sodium Potassium Chloride Carbon Dioxide Anion Gap BUN Creatinine Estimated GFR (MDRD) Glucose Lactic Acid 1.8 Calcium Total Bilirubin AST ALT Alkaline Phosphatase Total Protein Albumin Globulin Albumin/Globulin Ratio Urine Color Urine Clarity Urine pH Ur Specific [place] Urine Protein Urine Glucose (UA) Urine Ketones Urine Occult Blood Urine Nitrite Urine Bilirubin Urine Urobilinogen Ur Leukocyte Esterase Urine RBC Urine WBC Ur Squamous Epith Cells Urine Crystals Amorphous Sediment Urine Bacteria Urine Culture Comments - Rads (name of study) cxr Relevant Findings:: EMP independent interpretation of test (No acute cardiopulmonary process) PD Medical Decision Making - ED course Complexity details: reviewed results, re-evaluated patient, considered differential, d/w patient ED course: 87-year-old male who has a history of myeloma for which he has known mets to the liver and spleen currently on oral chemotherapy presents to the emergency department for evaluation of acute onset fever that began this evening up to 102.2. This patient's history is complicated by recurrent E. coli bacteremia. He completed a prolonged course of IV antibiotics 2 weeks ago. At that time his PICC line as well as his pacemaker had been removed. Patient is somewhat demented so much of the history is obtained from the chart as well as his and son at the bedside. Over the last 10 days to 2 weeks or so he has been doing well with the exception of one fall for which she was seen in the emergency department because he does have a history of being on Eliquis. The CT at that time was negative. Today in the emergency department he presents febrile with a temperature of 38.9. His heart rate is 88 sinus rhythm with right bundle branch block. His blood pressure is 149/66. He reporters well perfused. I did obtain routine sepsis labs that included CBC, electrolytes, lactic acid blood cultures x2, UA and chest x-ray. With a history of E. coli bacteremia I have elected to simply start the patient on ceftriaxone. Per my interpretation the chest x-ray shows no findings suggest pneumonia, pleural effusion or pneumothorax. His urinalysis is not consistent with infection. His white blood cell count today is 11.6. He does have some mild anemia with hemoglobin of 10.3. His electrolytes show a normal BUN and creatinine. He does have mildly elevated alk phos. His lactate is not elevated. At this stage however given the history of the recurrent e-coli bacteremia current chemotherapy and fever pt needs admission until source of fever is found. Res PCR is pending Patient's and son advocate that the patient is a DNR/DNI. IV fluids, antibiotics and inotropes would be okay. No pacer. 2119: I spoke on the phone with nighttime telehealth hospitalist. He agrees that the patient requires admission but he would like to have the results of the CT of the abdomen to evaluate for potensial source of infection completed before agreeing to write orders. At this time I have ordered a CT of the abdomen. Patient will be signed out to my nighttime colleague to follow-up on the CT results And subsequent discussion with Dr. Armas Departure - Departure Clinical Impression: Fever Qualifiers: Fever type: unspecified Qualified Code(s): R50.9 - Fever, unspecified Melanoma Qualifiers: Melanoma location: unspecified site Qualified Code(s): C43.9 - Malignant melanoma of skin, unspecified
[2022-10-19] MEDS ORDERED: cefTRIAXone 2 GM VIAL IVP STA (20:46)
[2022-10-19 20:50] LABS: BASOPHILS # (AUTO) 0.1 10^3/uL (0.0-0.1); BASOPHILS % (AUTO) 0.4 %; EOSINOPHILS # (AUTO) 0.1 10^3/uL (0.0-0.7); EOSINOPHILS % (AUTO) 0.5 %; HCT - HEMATOCRIT 32.9 % (42.0-52.0); HGB - HEMOGLOBIN 10.3 g/dL (14.0-18.0); LYMPHOCYTES # (AUTO) 0.9 10^3/uL (1.5-3.5); LYMPHOCYTES % (AUTO) 7.9 %; MEAN CORPUSCULAR HEMOGLOBIN 26.5 pg (27.0-31.0); MEAN CORPUSCULAR HGB CONC 31.3 g/dL (32.0-36.0); MEAN CORPUSCULAR VOLUME 84.8 fL (80.0-94.0); MEAN PLATELET VOLUME 8.5 fL (7.4-11.4); MONOCYTES # (AUTO) 1.2 10^3/uL (0.0-1.0); MONOCYTES % (AUTO) 10.6 %; NEUTROPHILS # (AUTO) 9.3 10^3/uL (1.5-6.6); PLT - PLATELET COUNT 320 10^3/uL (130-450); RED BLOOD COUNT 3.88 10^6/uL (4.70-6.10); RED CELL DISTRIBUTION WIDTH 16.6 % (12.0-15.0); WHITE BLOOD COUNT 11.6 x10^3/uL (4.8-10.8)
[2022-10-19 21:01] LABS: ALBUMIN 2.9 g/dL (3.2-5.5); ALBUMIN/GLOBULIN RATIO 0.7 (1.0-2.2); BILIRUBIN,TOTAL 0.5 mg/dL (0.2-1.0); CALCIUM 8.8 mg/dL (8.5-10.3); CREATININE 1.2 mg/dL (0.6-1.2); POTASSIUM 4.3 mmol/L (3.5-5.0)
[2022-10-19 21:07] LABS: BILIRUBIN,URINE NEGATIVE (NEGATIVE); GLUCOSE, URINE (UA) NEGATIVE (NEGATIVE); KETONES,URINE (UA) NEGATIVE (NEGATIVE); LEUKOCYTE ESTERASE, URINE NEGATIVE (NEGATIVE); NITRITE,URINE NEGATIVE (NEGATIVE); OCCULT BLOOD,URINE NEGATIVE (NEGATIVE); PROTEIN,URINE TRACE mg/dL (NEGATIVE); UROBILINOGEN,URINE 0.2 (NORMAL) E.U./dL (NORMAL)
[2022-10-19] MEDS ORDERED: ACETAMINOPHEN 1,000 MG/100 ML 1,000 MG/100 ML BAG IV ONE (21:07)
[2022-10-19 21:08] LABS: CLARITY,URINE CLEAR (CLEAR)
[2022-10-19 21:17] LABS: BACTERIA,URINE None Seen /HPF (None Seen); RBC,URINE 0-5 /HPF (0-5); SQUAMOUS EPITHELIAL CELL,UR RARE Squamous (<= Few); WBC,URINE 0-3 /HPF (0-3)
[2022-10-19 21:18] LABS: AMORPHOUS SEDIMENT,UR Few /LPF; CRYSTALS,URINE 6-10 Calcium Oxalate /LPF
--- NOTE | 2022-10-19 21:18 | XRAY Report ---
PROCEDURE: Chest 1 View X-Ray INDICATIONS: Sepsis TECHNIQUE: One view of the chest was acquired. COMPARISON: None. FINDINGS: Surgical changes and devices: None. Lungs and pleura: No pleural effusions or pneumothorax. Lungs are clear. Mediastinum: Mediastinal contours appear normal. Heart size is normal. Bones and chest wall: No suspicious bony lesions. Overlying soft tissues appear unremarkable. IMPRESSION: No acute cardiopulmonary process. Reviewed by: Jerica Adamson MD on 10/19/2022 9:16 PM PDT Approved by: Jerica Adamson MD on 10/19/2022 9:16 PM PDT Station ID: [id number]
[2022-10-19] MEDS ORDERED: iohexoL-300 100 ML VIAL ONE (21:44)
[2022-10-19] MEDS ORDERED: iohexoL-300 100 ML VIAL IVP ONE (22:27)
[2022-10-19 22:30] LABS: B. PARAPERTUSSIS- RESP PCR PAN NOT DETECTED; B. PERTUSSIS- RESP PCR PANEL NOT DETECTED; C. PNEUMONIAE- RESP PCR PANEL NOT DETECTED; CORONAVIRUS 229E-RESP PCR NOT DETECTED; CORONAVIRUS HKU1-RESP PCR NOT DETECTED; CORONAVIRUS NL63-RESP PCR NOT DETECTED; CORONAVIRUS OC43-RESP PCR NOT DETECTED; HUMAN METAPNEUMOVIRUS NOT DETECTED; INFLUENZA A- RESP PCR PANEL NOT DETECTED; INFLUENZA B - RESP PCR PANEL NOT DETECTED; M. PNEUMONIAE- RESP PCR PANEL NOT DETECTED; PARAINFLUENZA VIRUS 1 NOT DETECTED; PARAINFLUENZA VIRUS 2 NOT DETECTED; PARAINFLUENZA VIRUS 3 NOT DETECTED; PARAINFLUENZA VIRUS 4 NOT DETECTED; RHINOVIRUS/ENTEROVIRUS NOT DETECTED; RSV- RESP PCR PANEL NOT DETECTED; SARS-CoV-2 -RESP PCR PANEL NOT DETECTED
--- NOTE | 2022-10-19 23:31 | CT Report ---
PROCEDURE: ABDOMEN/PELVIS W INDICATIONS: fever, hx of melanoma with mets to liver and splee CONTRAST: Omni 300 100ml TECHNIQUE: After the administration of IV contrast, 5 mm thick sections acquired from the diaphragms to the symp hysis. 5 mm thick coronal and sagittal reformats were acquired. For radiation dose reduction, the f ollowing was used: automated exposure control, adjustment of mA and/or kV according to patient size. COMPARISON: CT abdomen pelvis 08/11/2022 FINDINGS: Image quality: Excellent. Lung bases and heart: Minimal left effusion. Liver: Persistent numerous hepatic hypodensities are present. The largest remains in the posterior ri ght hepatic lobe measuring 3.8 x 5.3 cm. Overall, remaining lesions appear Several demonstrating small interval increase is in size, 1 to 2 mm as well as others remain stable a nd others 1 to 2 mm decreased in size. Gallbladder and biliary tree: Unremarkable Spleen: Multiple low-attenuation foci remain present within the spleen. Previous target lesion on ser ies 4 image 28 within the posterior spleen measures 1.2 x 0.9 cm compared to 1.1 x 1.5 cm. Pancreas: Low-attenuation focus within the pancreatic tail is felt to be likely similar in size takin g into account motion. Adrenals: No adrenal nodule. Kidneys and ureters: No hydronephrosis. Simple right renal cyst.. Bowel and peritoneum: No bowel distension. No pathologic free fluid. Prominent colonic stool without obstruction. Diverticular present without inflammatory change. Lymph nodes: No central or retroperitoneal adenopathy. Vessels: No infrarenal aortic aneurysm. PELVIS Reproductive organs: Unremarkable. Bladder: No abnormal wall thickening, accounting for underdistension. Pelvic lymph nodes: No pelvic adenopathy by size criteria. Bones: Prominent interval appearance of lucency and sclerosis at T12 and T11 compared to prior exam. Other: No significant ventral or inguinal hernia. IMPRESSION: Multiple hepatic and splenic foci consistent with known metastatic disease with mixed interval change as described above. Interval lucency and sclerosis at T11 and T12 compared to prior exam suggestive of metastatic disease . Prominent colonic stool suggestive constipation. No obstruction. Diverticulosis. Reviewed by: Jerica Adamson MD on 10/19/2022 11:45 PM PDT Approved by: Jerica Adamson MD on 10/19/2022 11:45 PM PDT Station ID: [id number]
--- NOTE | 2022-10-19 23:58 | HISTORY & PHYSICAL EXAMINATION ---
Chief Complaint - Chief Complaint Chief Complaint: fever History of Present Illness - Admitted From Admitted From:: home - History of Present Illness HPI Comment/Other: 87 y/o M brought in by family due to fever. Pt has dementia and most info through family(son and at the bedside). He had sudden fever this afternoon with no complaints of cp, sob, cough, or diarrhea or abd pain. Pt has history of metastatic melanoma and recent E coli bacteremia, for which he received prolonged iv antibiotics. His PICC and pacemaker were removed. Pt currently receiving 2-agent chemo for cancer. Pt appeared comfortable and arousable. Denies any complaints at this time. History - Past Medical History Cardiovascular: reports: Hypertension, High cholesterol, Pulmonary embolism, Atrial fibrillation, Other Respiratory: reports: Asthma Neuro: reports: Dementia Endocrine/Autoimmune: reports: None GI: reports: GERD (w a UMER in 2002), Diverticulitis : reports: Benign prostate hypertrophy (w LUTs, s/p TURP then dilation of stricture then TUR of stricture), Incontinence, Nocturia, Kidney stones, Other (erecctile dysfunction, balanitis) HEENT: reports: Other ([place]) Psych: reports: None Musculoskeletal: reports: Osteoarthritis, Chronic back pain Derm: reports: None, Other MRSA Hx?: No - Past Surgical History General: reports: Appendectomy, Colonoscopy, EGD, Other Cardiovascular: reports: Pacemaker HEENT: reports: Cataracts Derm: reports: Skin cancer surgery - Family & Social History Family History Comment/Other: unavailable Living Situation: With spouse/s.o. Social History Notes: Nonsmoker and no alcohol abuse hx. Lives w . She makes all his decisions. - Substance History Use: Uses substance without health or social issues: NONE - POLST Patient has POLST: No POLST Status: DNR (per his who has advanced directives at home) Meds/Allgy - Home Medications Home Medications: Ambulatory Orders Medication Instructions Recorded Confirmed Apixaban [Eliquis] 5 mg PO BID 07/08/22 08/11/22 Gabapentin [Neurontin] 300 mg PO BID 07/08/22 08/11/22 Binimetinib [Mektovi] 30 mg PO BID 07/09/22 08/11/22 Encorafenib [Braftovi] 300 mg PO DAILY 07/09/22 08/11/22 Fluticasone 44 Mcg [Flovent] 2 puffs INH BID 07/16/22 08/11/22 Acetaminophen [Tylenol] 500 mg PO Q4HR PRN tab 07/28/22 08/11/22 Furosemide [Lasix] 20 mg PO MOWEFR #15 tab 07/28/22 08/11/22 Multivitamin W/Minerals [Theragran 1 tab PO DAILYWM #30 tab 07/28/22 08/11/22 M] Nystatin [Nystop] 1 applic TOP BID #15 gm 07/28/22 08/11/22 Potassium Chloride [Klor-Con] 20 meq PO MOWEFR #15 packet 07/28/22 08/11/22 Tamsulosin [Flomax] 0.4 mg PO DAILY #30 cap 07/28/22 08/11/22 oxyCODONE [Roxicodone] 2.5 - 5 mg PO Q8H PRN #10 tablet 08/11/22 MDD 6 - Allergies Allergies/Adverse Reactions: Allergies Allergy/AdvReac Type Severity Reaction Status Date / Time pneumococcal vaccine Allergy Hives Verified 10/19/22 20:39 [From Prevnar 13 (PF)] Review of Systems - Constitutional Constitutional: reports: Fever - Neurological Neurological: reports: General weakness Exam - Vital Signs Vital Signs: Vital Signs x48h Temp Pulse Resp BP Pulse Ox 10/19/22 23:30 71 13 123/61 99 10/19/22 23:00 83 18 100 10/19/22 22:30 79 16 100 10/19/22 22:00 82 16 99 10/19/22 21:30 87 19 138/69 H 100 10/19/22 20:23 38.9 C H 88 18 149/66 H 100 - Physical Exam General Appearance: positive: No acute distress Neck: positive: Nml inspection Respiratory: positive: No respiratory distress Cardiovascular: positive: Regular rate & rhythm, No murmur Abdomen: positive: Non-tender Extremities: positive: Non-tender (no focal neuro deficit) Conclusion/Plan - Lab Results Fish Bones: 10/19/22 20:42 10/19/22 20:42 - Other Other Results/Comments: 87 y/o M 1. Sepsis: iv fluids and antibiotics follow cultures, hx of bacteremia with unclear source 2. Dementia: baseline 3. metastatic Melanoma with mets to liver: baseline, outpt fu 4. Dehydration: IVF, hold Lasix. 5. Hx of PE and Afib: continue home meds of apixaban. 6. DNR/DNI but antibiotics ok per family 7. DVT prophylaxis apixaban I performed this consultation using real-alex telehealth tools including a live video connection between my location and the patient's location. As the provider for this telehealth service, I attest that I introduced myself to the patient and/or the family, provided my credentials, disclosed my location and determined that based on my review of patient's chart and/or discussion with members of the patient's treatment team, telemedicine via real time, 2 way, interactive audio and video platform is an appropriate and effective means of providing service. The patient/family and I mutually agree that this visit is ap propriate for telemedicine as well. Patients have been informed of and agreed to telemedicine management by partnership of [facility] and hospital administration, knowing the limitations of telemedicine. Some elements of this visit were assisted with the audiovisual technology and the bedside nurse. Total time is 45 minutes of which greater than 50% was spent in direct patient care. I answered all medical questions to the best of my ability.
[2022-10-19] MEDS ORDERED: SODIUM CHLORIDE FLUSH 0.9% 10 ML SYRINGE IVP PRN (23:59)
[2022-10-20] MEDS ORDERED: ACETAMINOPHEN 500 MG TABLET PO PRN (00:03)
--- NOTE | 2022-10-20 00:03 | ED Physician Documentation ---
ED Addendum - Addendum Addendum: 10/19/22 23:57 I received sign-out from my colleague, Dr. Lainez at end of his shift, who, in turn, received signout from THAO Luque. Please see THAO Luque's note for full H&P. This patient's case had already been discussed with the telehealth physician (by THAO Luque), and the telehealth physician also has already interviewed the patient. The sign-out I received was to recontact regarding the CT result. The CT results are available at this time, and a recontacted Dr. Conner ([facility]), discussed the CT results with him. He will proceed with admission to [facility]. Note that there are no findings on the CT A/P tonight that demonstrate nor suggest a source of patient's fever. There are changes of T11 and T12 that are new compared to previous, comparable study (CT A/P performed 2 months ago), which radiology opines are s/o interval metastases to these vertebrae.
[2022-10-20] MEDS: SODIUM CHLORIDE 0.9% 1,000 ML IV SCH ×3 (00:50→21:36)
[2022-10-20] MEDS: SODIUM CHLORIDE FLUSH 0.9% 10 ML SYRINGE IVP SCH ×3 (01:00→18:42)
[2022-10-20] MEDS: VANCOMYCIN INJ 1 GM in SODIUM CHLORIDE 0.9% 250 ML IV SCH (01:20)
[2022-10-20] MEDS: CEFEPIME 1 GM in SODIUM CHLORIDE 0.9% MINIBAG 100 ML IV SCH ×2 (05:10→18:50)
[2022-10-20 05:18] LABS: BASOPHILS # (AUTO) 0.1 10^3/uL (0.0-0.1); BASOPHILS % (AUTO) 0.6 %; EOSINOPHILS # (AUTO) 0.1 10^3/uL (0.0-0.7); EOSINOPHILS % (AUTO) 0.8 %; HCT - HEMATOCRIT 36.5 % (42.0-52.0); HGB - HEMOGLOBIN 10.9 g/dL (14.0-18.0); LYMPHOCYTES # (AUTO) 0.7 10^3/uL (1.5-3.5); LYMPHOCYTES % (AUTO) 7.3 %; MEAN CORPUSCULAR HEMOGLOBIN 26.4 pg (27.0-31.0); MEAN CORPUSCULAR HGB CONC 29.9 g/dL (32.0-36.0); MEAN CORPUSCULAR VOLUME 88.4 fL (80.0-94.0); MEAN PLATELET VOLUME 8.8 fL (7.4-11.4); MONOCYTES # (AUTO) 0.9 10^3/uL (0.0-1.0); MONOCYTES % (AUTO) 9.3 %; NEUTROPHILS # (AUTO) 8.2 10^3/uL (1.5-6.6); NEUTROPHILS % (AUTO) 81.5 %; PLT - PLATELET COUNT 271 10^3/uL (130-450); RED BLOOD COUNT 4.13 10^6/uL (4.70-6.10); RED CELL DISTRIBUTION WIDTH 16.7 % (12.0-15.0)
[2022-10-20 05:28] LABS: CALCIUM 8.5 mg/dL (8.5-10.3)
[2022-10-20] MEDS: APIXABAN 5 MG TABLET PO SCH ×3 (08:38→21:37)
[2022-10-20] MEDS: GABAPENTIN 300 MG CAPSULE PO SCH ×2 (08:38→21:37)
[2022-10-20] MEDS: MULTIVITAMIN W/MINERALS TABLET PO SCH (08:38)
[2022-10-20] MEDS: TAMSULOSIN 0.4 MG CAPSULE PO SCH (08:38)
[2022-10-20] MEDS: NYSTATIN POWDER 15 GM TOP SCH ×2 (08:38→21:37)
[2022-10-20] MEDS: BUDESONIDE 0.5 MG/2 ML NEB INH SCH ×2 (10:16→20:55)
--- NOTE | 2022-10-20 11:34 | PHARMACY PROGRESS NOTE ---
- Best Possible Medication History Admit Date and Time: 10/19/22 1226 Processed by: Pharmacy Medication History completed: Yes Patient Interview: Completed Secondary Source(s): Spouse/Significant other, Pharmacy records, Insurance records, Previous admit records As the person ultimately responsible for medication therapy, providers are able to order a medication from an existing home medication list in [facility] via the "Reconcile Routine" prior to Confirmation of that medication by desktop support associate. Such practice is discouraged except when the physician, in their clinical judgment, deems that a medical need exists for a medication without regard to previous use.
[2022-10-20] MEDS ORDERED: MULTIVITAMIN W/MINERALS TABLET PO SCH (12:00)
[2022-10-20] MEDS: LIDOCAINE PATCH 5% TOP PRN (12:02)
--- NOTE | 2022-10-20 18:51 | PROVIDER PROGRESS NOTE ---
Assessment/Plan - Problem List (1) E coli bacteremia Assessment/Plan: The blood cultures drawn in the ER when he had a fever, have come back showing growing E. coli. 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 The last few times it was felt to be in on your treated infection with unknown source and he was hospitalized at [facility]. The told me today that he completed 2 weeks of antibiotics here, 2 weeks of antibiotics at [facility] and 4 weeks of antibiotics after discharge. During that hospitalization he had his port removed and pacemaker removed because they thought those were sources for receding his bloodstream. It has only been 2 weeks since he finished that long course of IV antibiotics. Plan: Continue with empiric Vanco and Cefepime. I will stop the Vanco if there is no evidence of a gram-positive bacterium, or any MRSA, by tomorrow. I will reach out to Dr. Eldridge at [facility], the ID doctor who coordinated his last 8-week course of IV antibiotics, for recommendations. The is to bring me Dr Eldridge's contact information tonight from home. 2. Dementia According to the , during those 8 weeks of IV antibiotics, he had physical therapy and was independent, could dress himself and toilet himself. Then with yesterday's fever he has now again become obtunded, minimally communicative and mostly asleep Plan: Await reconciled med list, I will restart any meds for dementia if he is on any 3. Metastatic Melanoma with mets He has mets to liver. At admission he was found to have new finding of his vertebrae of his T-spine, possibly more mets Plan: Unfortunately during a fever, his chemotherapy is on hold. This was explained to the . 4. Dehydration Plan: Cont IVF, hold Lasix. 5. Hx of PE and Afib Plan: Continue home med of apixaban. 6. Sepsis Resolved Patient had criteria for sepsis with fever, elevated WBC 11.6, and AMS - Current Meds Current Meds: Current Medications Generic Name Dose Route Start Last Admin Trade Name Freq PRN Reason Stop Dose Admin Apixaban 5 mg 10/20/22 09:00 10/20/22 08:43 Apixaban 5 Mg Tablet PO 2.5 mg BID DAVID Administration Budesonide 0.5 mg 10/20/22 07:00 10/20/22 10:16 Budesonide 0.5 Mg/2 Ml Neb INH Not Given RTBID DAVID Gabapentin 300 mg 10/20/22 09:00 10/20/22 08:38 Gabapentin 300 Mg Capsule PO 300 mg BID DAVID Administration Sodium Chloride 1,000 mls @ 100 mls/hr 10/19/22 23:45 10/20/22 10:19 Normal Saline 0.9% IV 100 mls/hr .Q10H DAVID Administration Cefepime HCl 1 gm/ Sodium 100 mls @ 200 mls/hr 10/20/22 06:00 10/20/22 05:42 Chloride IV Infused Q12H DAVID Infusion Vancomycin HCl 1 gm/ Sodium 250 mls @ 167 mls/hr 10/20/22 01:00 10/20/22 02:54 Chloride IV Infused Q24H DAVID Infusion Lidocaine 1 patch 10/20/22 11:49 10/20/22 12:02 Lidocaine Patch 5% TOP 1 patch DAILY PRN Administration Moderate Pain (Level 4-6) Multivitamins/Minerals 1 tab 10/20/22 08:00 10/20/22 08:38 Multivitamin W/Minerals Tablet PO 1 tab DAILYWM DAVID Administration Nystatin 1 applic 10/20/22 09:00 10/20/22 08:38 Nystatin Powder 15 Gm TOP 1 applic BID DAVID Administration Sodium Chloride 10 ml 10/20/22 01:00 10/20/22 18:42 Sodium Chloride Flush 0.9% 10 Ml Syringe IVP Not Given 0100,0900,1700 DAVID Tamsulosin HCl 0.4 mg 10/20/22 09:00 10/20/22 08:38 Tamsulosin 0.4 Mg Capsule PO 0.4 mg DAILY DAVID Administration - Lab Result Fish Bone Diagrams: 10/20/22 05:12 10/20/22 05:12 - Additional Planning My Orders: My Active Orders 10/20/22 Lunch Regular Diet [DIET] 10/20/22 11:49 Lidocaine Patch 5% [Lidoderm Patch] 1 patch TOP DAILY PRN 10/21/22 05:00 BMP - BASIC METABOLIC PANEL [CHEM] DAILYLAB CBC - COMP BLD CT W/AUTO DIFF [HEME] DAILYLAB MAGNESIUM [CHEM] DAILYLAB PHOSPHORUS [CHEM] DAILYLAB 10/22/22 05:00 BMP - BASIC METABOLIC PANEL [CHEM] DAILYLAB CBC - COMP BLD CT W/AUTO DIFF [HEME] DAILYLAB 10/23/22 05:00 BMP - BASIC METABOLIC PANEL [CHEM] DAILYLAB CBC - COMP BLD CT W/AUTO DIFF [HEME] DAILYLAB 10/24/22 05:00 BMP - BASIC METABOLIC PANEL [CHEM] DAILYLAB CBC - COMP BLD CT W/AUTO DIFF [HEME] DAILYLAB Subjective - Subjective Patient Reports: Resting Comfortably, Other (He is minimally communicative, has poor memory.) Objective Vital Signs: Vital Signs - 24 hr 10/19/22 10/19/22 10/19/22 20:23 21:30 22:00 Temperature 38.9 C H Heart Rate 88 87 82 Heart Rate [ Brachial] Respiratory 18 19 16 Rate Blood Pressure 149/66 H 138/69 H Blood Pressure [Left Brachial artery] Blood Pressure [Right Brachial artery] O2 Saturation 100 100 99 10/19/22 10/19/22 10/19/22 22:30 23:00 23:30 Temperature Heart Rate 79 83 71 Heart Rate [ Brachial] Respiratory 16 18 13 Rate Blood Pressure 123/61 Blood Pressure [Left Brachial artery] Blood Pressure [Right Brachial artery] O2 Saturation 100 100 99 10/20/22 10/20/22 10/20/22 00:00 00:57 08:00 Temperature 36.8 C 37.1 C 37.6 C Heart Rate 62 Heart Rate [ 63 76 Brachial] Respiratory 12 16 17 Rate Blood Pressure 118/59 L Blood Pressure 134/59 H 127/65 [Left Brachial artery] Blood Pressure [Right Brachial artery] O2 Saturation 100 100 98 10/20/22 15:31 Temperature 37.1 C Heart Rate Heart Rate [ 64 Brachial] Respiratory 20 Rate Blood Pressure Blood Pressure [Left Brachial artery] Blood Pressure 111/70 [Right Brachial artery] O2 Saturation 100 Oxygen O2 Source Room air I&O (Last 24 Hrs): Intake and Output Totals x24h 10/18/22 10/19/22 10/20/22 23:59 23:59 23:59 Intake Total 100 2254.333 Output Total 900 Balance 100 1354.333 General: Alert, No acute distress HEENT: Mucous membr. moist/pink, Other (His face is ashen) Neck: Supple, No JVD Neuro: Alert, Disoriented, Non Focal, Other (Minimally communicative. Has poor memory.) Cardiovascular: No murmurs Respiratory: No respiratory distress Abdomen: Soft Extremities: No clubbing, No edema, No tenderness/swelling - Results Results: Laboratory Results WBC 10.0 x10^3/uL (4.8-10.8) 10/20/22 05:12 RBC 4.13 10^6/uL (4.70-6.10) L 10/20/22 05:12 Hgb 10.9 g/dL (14.0-18.0) L 10/20/22 05:12 Hct 36.5 % (42.0-52.0) L 10/20/22 05:12 MCV 88.4 fL (80.0-94.0) 10/20/22 05:12 MCH 26.4 pg (27.0-31.0) L 10/20/22 05:12 MCHC 29.9 g/dL (32.0-36.0) L 10/20/22 05:12 RDW 16.7 % (12.0-15.0) H 10/20/22 05:12 Plt Count 271 10^3/uL (130-450) 10/20/22 05:12 MPV 8.8 fL (7.4-11.4) 10/20/22 05:12 Neut # (Auto) 8.2 10^3/uL (1.5-6.6) H 10/20/22 05:12 Lymph # (Auto) 0.7 10^3/uL (1.5-3.5) L 10/20/22 05:12 [place] # (Auto) 0.9 10^3/uL (0.0-1.0) 10/20/22 05:12 Eos # (Auto) 0.1 10^3/uL (0.0-0.7) 10/20/22 05:12 Baso # (Auto) 0.1 10^3/uL (0.0-0.1) 10/20/22 05:12 Absolute Nucleated RBC 0.00 x10^3/uL 10/20/22 05:12 Nucleated RBC % 0.0 /100WBC 10/20/22 05:12 Sodium 137 mmol/L (135-145) 10/20/22 05:12 Potassium 4.0 mmol/L (3.5-5.0) 10/20/22 05:12 Chloride 104 mmol/L (101-111) 10/20/22 05:12 Carbon Dioxide 24 mmol/L (21-32) 10/20/22 05:12 Anion Gap 9.0 (6-13) 10/20/22 05:12 BUN 30 mg/dL (6-20) H 10/20/22 05:12 Creatinine 1.0 mg/dL (0.6-1.2) 10/20/22 05:12 Estimated GFR (MDRD) 70 (>89) L 10/20/22 05:12 Glucose 100 mg/dL (70-100) 10/20/22 05:12 Lactic Acid 1.8 mmol/L (0.5-2.2) 10/19/22 20:42 Calcium 8.5 mg/dL (8.5-10.3) 10/20/22 05:12 Total Bilirubin 0.5 mg/dL (0.2-1.0) 10/19/22 20:42 AST 23 IU/L (10-42) 10/19/22 20:42 ALT 25 IU/L (10-60) 10/19/22 20:42 Alkaline Phosphatase 194 IU/L (42-121) H 10/19/22 20:42 Total Protein 7.0 g/dL (6.7-8.2) 10/19/22 20:42 Albumin 2.9 g/dL (3.2-5.5) L 10/19/22 20:42 Globulin 4.1 g/dL (2.1-4.2) 10/19/22 20:42 Albumin/Globulin Ratio 0.7 (1.0-2.2) L 10/19/22 20:42 Urine Color YELLOW 10/19/22 20:20 Urine Clarity CLEAR (CLEAR) 10/19/22 20:20 Urine pH 5.0 PH (5.0-7.5) 10/19/22 20:20 Ur Specific [place] 1.025 (1.002-1.030) 10/19/22 20:20 Urine Protein TRACE mg/dL (NEGATIVE) 10/19/22 20:20 Urine Glucose (UA) NEGATIVE mg/dL (NEGATIVE) 10/19/22 20:20 Urine Ketones NEGATIVE mg/dL (NEGATIVE) 10/19/22 20:20 Urine Occult Blood NEGATIVE (NEGATIVE) 10/19/22 20:20 Urine Nitrite NEGATIVE (NEGATIVE) 10/19/22 20:20 Urine Bilirubin NEGATIVE (NEGATIVE) 10/19/22 20:20 Urine Urobilinogen 0.2 (NORMAL) E.U./dL (NORMAL) 10/19/22 20:20 Ur Leukocyte Esterase NEGATIVE (NEGATIVE) 10/19/22 20:20 Urine RBC 0-5 /HPF (0-5) 10/19/22 20:20 Urine WBC 0-3 /HPF (0-3) 10/19/22 20:20 Ur Squamous Epith Cells RARE Squamous (<= Few) 10/19/22 20:20 Urine Crystals 6-10 Calcium Oxalate /LPF 10/19/22 20:20 Amorphous Sediment Few /LPF 10/19/22 20:20 Urine Bacteria None Seen /HPF (None Seen) 10/19/22 20:20 Urine Culture Comments NOT INDICATED 10/19/22 20:20 Nasal Adenovirus (PCR) NOT DETECTED 10/19/22 21:33 Nasal B. parapertussis DNA (PCR) NOT DETECTED 10/19/22 21:33 Nasal Coronavir 229E PCR NOT DETECTED 10/19/22 21:33 Nasal Coronavir HKU1 PCR NOT DETECTED 10/19/22 21:33 Nasal Coronavir NL63 PCR NOT DETECTED 10/19/22 21:33 Nasal Coronavir OC43 PCR NOT DETECTED 10/19/22 21:33 Nasal Enterovir/Rhinovir PCR NOT DETECTED 10/19/22 21:33 Nasal Influenza B PCR NOT DETECTED 10/19/22 21:33 Nasal Influenza A PCR NOT DETECTED 10/19/22 21:33 Nasal Parainfluen 1 PCR NOT DETECTED 10/19/22 21:33 Nasal Parainfluen 2 PCR NOT DETECTED 10/19/22 21:33 Nasal Parainfluen 3 PCR NOT DETECTED 10/19/22 21:33 Nasal Parainfluen 4 PCR NOT DETECTED 10/19/22 21:33 Nasal RSV (PCR) NOT DETECTED 10/19/22 21:33 Nasal B.pertussis DNA PCR NOT DETECTED 10/19/22 21:33 Nasal C.pneumoniae (PCR) NOT DETECTED 10/19/22 21:33 Nathan Human Metapneumo PCR NOT DETECTED 10/19/22 21:33 Nasal M.pneumoniae (PCR) NOT DETECTED 10/19/22 21:33 Nasal SARS-CoV-2 (PCR) NOT DETECTED 10/19/22 21:33 - Procedures Procedures: Procedures INSERTION OF INFUSION DEV INTO SUP VENA CAVA, PERC APPROACH (07/15/22)
[2022-10-21] MEDS: VANCOMYCIN INJ 1 GM in SODIUM CHLORIDE 0.9% 250 ML IV SCH (01:06)
[2022-10-21] MEDS: SODIUM CHLORIDE FLUSH 0.9% 10 ML SYRINGE IVP SCH ×3 (01:16→16:00)
[2022-10-21] MEDS: CEFEPIME 1 GM in SODIUM CHLORIDE 0.9% MINIBAG 100 ML IV SCH ×2 (05:46→17:45)
[2022-10-21 05:47] LABS: BASOPHILS % (AUTO) 0.5 %; EOSINOPHILS # (AUTO) 0.1 10^3/uL (0.0-0.7); EOSINOPHILS % (AUTO) 1.5 %; HCT - HEMATOCRIT 34.5 % (42.0-52.0); HGB - HEMOGLOBIN 10.4 g/dL (14.0-18.0); MEAN CORPUSCULAR HGB CONC 30.1 g/dL (32.0-36.0); MEAN CORPUSCULAR VOLUME 86.3 fL (80.0-94.0); MEAN PLATELET VOLUME 8.6 fL (7.4-11.4); MONOCYTES % (AUTO) 13.8 %; NEUTROPHILS # (AUTO) 5.2 10^3/uL (1.5-6.6); NEUTROPHILS % (AUTO) 70.7 %; PLT - PLATELET COUNT 305 10^3/uL (130-450); RED CELL DISTRIBUTION WIDTH 16.3 % (12.0-15.0); WHITE BLOOD COUNT 7.3 x10^3/uL (4.8-10.8)
[2022-10-21 06:15] LABS: CALCIUM 8.5 mg/dL (8.5-10.3); MAGNESIUM 2.1 mg/dL (1.7-2.8); PHOSPHORUS 3.3 mg/dL (2.5-4.6); POTASSIUM 3.8 mmol/L (3.5-5.0)
[2022-10-21] MEDS: BUDESONIDE 0.5 MG/2 ML NEB INH SCH ×2 (07:53→21:00)
[2022-10-21] MEDS: APIXABAN 5 MG TABLET PO SCH ×2 (08:31→21:01)
[2022-10-21] MEDS: MULTIVITAMIN W/MINERALS TABLET PO SCH (08:31)
[2022-10-21] MEDS: TAMSULOSIN 0.4 MG CAPSULE PO SCH (08:31)
[2022-10-21] MEDS: GABAPENTIN 300 MG CAPSULE PO SCH ×2 (08:31→21:01)
[2022-10-21] MEDS: NYSTATIN POWDER 15 GM TOP SCH ×2 (08:32→21:01)
[2022-10-21] MEDS ORDERED: DOCUSATE SODIUM 100 MG CAPSULE PO PRN (10:12)
[2022-10-21] MEDS: SODIUM CHLORIDE 0.9% 1,000 ML IV SCH ×2 (11:50→21:01)
--- NOTE | 2022-10-21 12:10 | PROVIDER PROGRESS NOTE ---
Assessment/Plan - Problem List (1) E coli bacteremia Assessment/Plan: The blood cultures drawn in the ER when he had a fever, have come back growing E. coli. 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 The last few times it was felt to be in on your treated infection with unknown source and he was hospitalized at [facility]. The told me that he completed 2 weeks of antibiotics here, 2 weeks of antibiotics at [facility] and 4 weeks of antibiotics after discharge. During that hospitalization he had his port removed and pacemaker removed because they thought those were sources for receding his bloodstream. It has only been 2 weeks since he finished that long course of IV antibiotics. Empiric iv Vancomycin was stopped. Plan: Continue with empiric Cefepime. Today I tried reaching Dr. Eldridge at [facility], the ID doctor who coordinated his last 8-week course of IV antibiotics, for recommendations, but [facility] has no operators answering to reach the providers on Sunday and Sunday (today is Sunday) (2) Dementia According to the , during those 8 weeks of IV antibiotics, he had physical therapy and was independent, can dress himself and toilet himself. Then with this new fever he has now become obtunded, minimally communicative and is mostly asleep Plan: Continue with supportive care I will order PT and OT to start working with him (3) Metastatic melanoma He has mets to the liver. In addition he was found to have new vertebral T- spine abnormality, probably more mets Plan: Unfortunately during a fever, his chemotherapy is on hold. This was explained to the yesterday. She said she called his oncologist who told her the same thing. (4) Dehydration Plan: Continue IV fluids, hold Lasix I will start decreasing the iv rate and wean it to off (5) History of pulmonary embolism and A-fib Plan: Continue with home medication of apixaban (6) Sepsis Resolved He had met criteria for sepsis with his fever, elevated WBC of 11.6 at admission and new altered mental status - Current Meds Current Meds: Current Medications Generic Name Dose Route Start Last Admin Trade Name Freq PRN Reason Stop Dose Admin Apixaban 5 mg 10/20/22 09:00 10/21/22 08:31 Apixaban 5 Mg Tablet PO 5 mg BID DAVID Administration Budesonide 0.5 mg 10/20/22 07:00 10/21/22 07:53 Budesonide 0.5 Mg/2 Ml Neb INH 0.5 mg RTBID DAVID Administration Gabapentin 300 mg 10/20/22 09:00 10/21/22 08:31 Gabapentin 300 Mg Capsule PO 300 mg BID DAVID Administration Sodium Chloride 1,000 mls @ 100 mls/hr 10/19/22 23:45 10/21/22 11:50 Normal Saline 0.9% IV 100 mls/hr .Q10H DAVID Administration Cefepime HCl 1 gm/ Sodium 100 mls @ 200 mls/hr 10/20/22 06:00 10/21/22 06:21 Chloride IV Infused Q12H DAVID Infusion Lidocaine 1 patch 10/20/22 11:49 10/20/22 12:02 Lidocaine Patch 5% TOP 1 patch DAILY PRN Administration Moderate Pain (Level 4-6) Multivitamins/Minerals 1 tab 10/20/22 08:00 10/21/22 08:31 Multivitamin W/Minerals Tablet PO 1 tab DAILYWM DAVID Administration Nystatin 1 applic 10/20/22 09:00 10/21/22 08:32 Nystatin Powder 15 Gm TOP 1 applic BID DAVID Administration Sodium Chloride 10 ml 10/20/22 01:00 10/21/22 08:33 Sodium Chloride Flush 0.9% 10 Ml Syringe IVP Not Given 0100,0900,1700 DAVID Tamsulosin HCl 0.4 mg 10/20/22 09:00 10/21/22 08:31 Tamsulosin 0.4 Mg Capsule PO 0.4 mg DAILY DAVID Administration - Lab Result Fish Bone Diagrams: 10/21/22 05:16 10/21/22 05:16 - Additional Planning My Orders: My Active Orders 10/20/22 Lunch Regular Diet [DIET] 10/20/22 11:49 Lidocaine Patch 5% [Lidoderm Patch] 1 patch TOP DAILY PRN 10/21/22 Evaluate and Treat OT [OT] Routine Evaluate and Treat PT [PT] Routine 10/21/22 10:12 Docusate Sodium 100Mg Capsule [Colace 100Mg Capsule] 100 mg PO DAILY PRN 10/22/22 05:00 BMP - BASIC METABOLIC PANEL [CHEM] DAILYLAB CBC - COMP BLD CT W/AUTO DIFF [HEME] DAILYLAB 10/23/22 05:00 BMP - BASIC METABOLIC PANEL [CHEM] DAILYLAB CBC - COMP BLD CT W/AUTO DIFF [HEME] DAILYLAB 10/24/22 05:00 BMP - BASIC METABOLIC PANEL [CHEM] DAILYLAB CBC - COMP BLD CT W/AUTO DIFF [HEME] DAILYLAB Subjective - Subjective Patient Reports: Other (Not communicative, mostly napping. When he is spoken to he just stares at the person and does not answer) Nursing Reports: Confused (Trying to climb out of bed but has no strength) Objective Vital Signs: Vital Signs - 24 hr 10/20/22 10/20/22 10/21/22 15:31 21:01 00:00 Temperature 37.1 C 37.3 C Heart Rate 69 Heart Rate [ 64 64 Brachial] Respiratory 20 20 18 Rate Blood Pressure 111/70 156/65 H [Right Brachial artery] O2 Saturation 100 100 10/21/22 10/21/22 07:55 08:00 Temperature 36.7 C Heart Rate 74 Heart Rate [ 74 Brachial] Respiratory 19 18 Rate Blood Pressure 174/83 H [Right Brachial artery] O2 Saturation 100 Oxygen O2 Source Room air I&O (Last 24 Hrs): Intake and Output Totals x24h 10/19/22 10/20/22 10/21/22 23:59 23:59 23:59 Intake Total 100 3604.333 1690.000 Output Total 1300 2175 Balance 100 2304.333 -485.000 General: Other (Lethargic. Appears ashen javed) HEENT: Mucous membr. moist/pink Neck: Supple (No rigidity) Neuro: Disoriented, Non Focal Cardiovascular: No murmurs Respiratory: No respiratory distress Abdomen: Soft, No tenderness Extremities: No clubbing, No edema, No tenderness/swelling - Results Results: Laboratory Results WBC 7.3 x10^3/uL (4.8-10.8) 10/21/22 05:16 RBC 4.00 10^6/uL (4.70-6.10) L 10/21/22 05:16 Hgb 10.4 g/dL (14.0-18.0) L 10/21/22 05:16 Hct 34.5 % (42.0-52.0) L 10/21/22 05:16 MCV 86.3 fL (80.0-94.0) 10/21/22 05:16 MCH 26.0 pg (27.0-31.0) L 10/21/22 05:16 MCHC 30.1 g/dL (32.0-36.0) L 10/21/22 05:16 RDW 16.3 % (12.0-15.0) H 10/21/22 05:16 Plt Count 305 10^3/uL (130-450) 10/21/22 05:16 MPV 8.6 fL (7.4-11.4) 10/21/22 05:16 Neut # (Auto) 5.2 10^3/uL (1.5-6.6) 10/21/22 05:16 Lymph # (Auto) 1.0 10^3/uL (1.5-3.5) L 10/21/22 05:16 [place] # (Auto) 1.0 10^3/uL (0.0-1.0) 10/21/22 05:16 Eos # (Auto) 0.1 10^3/uL (0.0-0.7) 10/21/22 05:16 Baso # (Auto) 0.0 10^3/uL (0.0-0.1) 10/21/22 05:16 Absolute Nucleated RBC 0.00 x10^3/uL 10/21/22 05:16 Nucleated RBC % 0.0 /100WBC 10/21/22 05:16 Sodium 138 mmol/L (135-145) 10/21/22 05:16 Potassium 3.8 mmol/L (3.5-5.0) 10/21/22 05:16 Chloride 104 mmol/L (101-111) 10/21/22 05:16 Carbon Dioxide 27 mmol/L (21-32) 10/21/22 05:16 Anion Gap 7.0 (6-13) 10/21/22 05:16 BUN 21 mg/dL (6-20) H 10/21/22 05:16 Creatinine 1.0 mg/dL (0.6-1.2) 10/21/22 05:16 Estimated GFR (MDRD) 70 (>89) L 10/21/22 05:16 Glucose 104 mg/dL (70-100) H 10/21/22 05:16 Lactic Acid 1.8 mmol/L (0.5-2.2) 10/19/22 20:42 Calcium 8.5 mg/dL (8.5-10.3) 10/21/22 05:16 Phosphorus 3.3 mg/dL (2.5-4.6) 10/21/22 05:16 Magnesium 2.1 mg/dL (1.7-2.8) 10/21/22 05:16 Total Bilirubin 0.5 mg/dL (0.2-1.0) 10/19/22 20:42 AST 23 IU/L (10-42) 10/19/22 20:42 ALT 25 IU/L (10-60) 10/19/22 20:42 Alkaline Phosphatase 194 IU/L (42-121) H 10/19/22 20:42 Total Protein 7.0 g/dL (6.7-8.2) 10/19/22 20:42 Albumin 2.9 g/dL (3.2-5.5) L 10/19/22 20:42 Globulin 4.1 g/dL (2.1-4.2) 10/19/22 20:42 Albumin/Globulin Ratio 0.7 (1.0-2.2) L 10/19/22 20:42 Urine Color YELLOW 10/19/22 20:20 Urine Clarity CLEAR (CLEAR) 10/19/22 20:20 Urine pH 5.0 PH (5.0-7.5) 10/19/22 20:20 Ur Specific [place] 1.025 (1.002-1.030) 10/19/22 20:20 Urine Protein TRACE mg/dL (NEGATIVE) 10/19/22 20:20 Urine Glucose (UA) NEGATIVE mg/dL (NEGATIVE) 10/19/22 20:20 Urine Ketones NEGATIVE mg/dL (NEGATIVE) 10/19/22 20:20 Urine Occult Blood NEGATIVE (NEGATIVE) 10/19/22 20:20 Urine Nitrite NEGATIVE (NEGATIVE) 10/19/22 20:20 Urine Bilirubin NEGATIVE (NEGATIVE) 10/19/22 20:20 Urine Urobilinogen 0.2 (NORMAL) E.U./dL (NORMAL) 10/19/22 20:20 Ur Leukocyte Esterase NEGATIVE (NEGATIVE) 10/19/22 20:20 Urine RBC 0-5 /HPF (0-5) 10/19/22 20:20 Urine WBC 0-3 /HPF (0-3) 10/19/22 20:20 Ur Squamous Epith Cells RARE Squamous (<= Few) 10/19/22 20:20 Urine Crystals 6-10 Calcium Oxalate /LPF 10/19/22 20:20 Amorphous Sediment Few /LPF 10/19/22 20:20 Urine Bacteria None Seen /HPF (None Seen) 10/19/22 20:20 Urine Culture Comments NOT INDICATED 10/19/22 20:20 Nasal Adenovirus (PCR) NOT DETECTED 10/19/22 21:33 Nasal B. parapertussis DNA (PCR) NOT DETECTED 10/19/22 21:33 Nasal Coronavir 229E PCR NOT DETECTED 10/19/22 21:33 Nasal Coronavir HKU1 PCR NOT DETECTED 10/19/22 21:33 Nasal Coronavir NL63 PCR NOT DETECTED 10/19/22 21:33 Nasal Coronavir OC43 PCR NOT DETECTED 10/19/22 21:33 Nasal Enterovir/Rhinovir PCR NOT DETECTED 10/19/22 21:33 Nasal Influenza B PCR NOT DETECTED 10/19/22 21:33 Nasal Influenza A PCR NOT DETECTED 10/19/22 21:33 Nasal Parainfluen 1 PCR NOT DETECTED 10/19/22 21:33 Nasal Parainfluen 2 PCR NOT DETECTED 10/19/22 21:33 Nasal Parainfluen 3 PCR NOT DETECTED 10/19/22 21:33 Nasal Parainfluen 4 PCR NOT DETECTED 10/19/22 21:33 Nasal RSV (PCR) NOT DETECTED 10/19/22 21:33 Nasal B.pertussis DNA PCR NOT DETECTED 10/19/22 21:33 Nasal C.pneumoniae (PCR) NOT DETECTED 10/19/22 21:33 Nathan Human Metapneumo PCR NOT DETECTED 10/19/22 21:33 Nasal M.pneumoniae (PCR) NOT DETECTED 10/19/22 21:33 Nasal SARS-CoV-2 (PCR) NOT DETECTED 10/19/22 21:33 - Procedures Procedures: Procedures INSERTION OF INFUSION DEV INTO SUP VENA CAVA, PERC APPROACH (07/15/22)
[2022-10-22 05:22] LABS: BASOPHILS # (AUTO) 0.1 10^3/uL (0.0-0.1); BASOPHILS % (AUTO) 0.6 %; EOSINOPHILS # (AUTO) 0.2 10^3/uL (0.0-0.7); HGB - HEMOGLOBIN 9.8 g/dL (14.0-18.0); LYMPHOCYTES # (AUTO) 1.2 10^3/uL (1.5-3.5); LYMPHOCYTES % (AUTO) 14.8 %; MEAN CORPUSCULAR HEMOGLOBIN 26.3 pg (27.0-31.0); MEAN CORPUSCULAR HGB CONC 30.6 g/dL (32.0-36.0); MEAN CORPUSCULAR VOLUME 85.8 fL (80.0-94.0); MEAN PLATELET VOLUME 8.4 fL (7.4-11.4); MONOCYTES # (AUTO) 1.2 10^3/uL (0.0-1.0); MONOCYTES % (AUTO) 15.2 %; NEUTROPHILS # (AUTO) 5.2 10^3/uL (1.5-6.6); NEUTROPHILS % (AUTO) 66.8 %; PLT - PLATELET COUNT 294 10^3/uL (130-450); RED BLOOD COUNT 3.73 10^6/uL (4.70-6.10); RED CELL DISTRIBUTION WIDTH 16.2 % (12.0-15.0); WHITE BLOOD COUNT 7.8 x10^3/uL (4.8-10.8)
[2022-10-22 05:31] LABS: CALCIUM 8.3 mg/dL (8.5-10.3); POTASSIUM 3.8 mmol/L (3.5-5.0)
[2022-10-22] MEDS: CEFEPIME 1 GM in SODIUM CHLORIDE 0.9% MINIBAG 100 ML IV SCH ×2 (05:41→17:35)
[2022-10-22] MEDS: BUDESONIDE 0.5 MG/2 ML NEB INH SCH ×2 (06:15→19:00)
[2022-10-22] MEDS: GABAPENTIN 300 MG CAPSULE PO SCH ×2 (09:15→20:34)
[2022-10-22] MEDS: APIXABAN 5 MG TABLET PO SCH ×2 (09:15→20:34)
[2022-10-22] MEDS: TAMSULOSIN 0.4 MG CAPSULE PO SCH (09:15)
[2022-10-22] MEDS: MULTIVITAMIN W/MINERALS TABLET PO SCH (09:16)
[2022-10-22] MEDS: NYSTATIN POWDER 15 GM TOP SCH ×2 (09:16→20:35)
[2022-10-22] MEDS: SODIUM CHLORIDE FLUSH 0.9% 10 ML SYRINGE IVP SCH ×3 (10:46→15:26)
[2022-10-22] MEDS: SODIUM CHLORIDE 0.9% 1,000 ML IV SCH ×2 (11:17→21:42)
--- NOTE | 2022-10-22 12:32 | PROVIDER PROGRESS NOTE ---
Assessment/Plan - Problem List (1) E coli bacteremia Assessment/Plan: The blood cultures drawn in the ER when he had a fever, have come back growing E. coli. 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 The last few times it was felt to be an under-treated infection with unknown source. He was hospitalized at [facility]. The told me that he completed 2 weeks of antibiotics here, 2 weeks of antibiotics at [facility] and 4 weeks of antibiotics after discharge. During that hospitalization at [facility] he had his port removed and pacemaker removed because they thought those were sources for bacteria re-seeding his bloodstream. It has only been 2 weeks since he finished that long course of IV antibiotics. His CT abd/pelvis done at admission, saw no potential source of infection. Empiric iv Vancomycin was stopped, when that E coli grew in cx. The empiric iv Cefepime has continued Plan: Continue with empiric Cefepime. On 10/21, I tried reaching Dr. Eldridge at [facility], the ID doctor who coordinated his last 8-week course of IV antibiotics, for recommendations, but [facility] has no operators answering to reach their providers on S and Sunday (today is Sunday) (2) Dementia According to the , during those 8 weeks of IV antibiotics, he had physical therapy and became independent, could dress himself and toilet himself. Then with this new fever, he has again become obtunded, minimally communicative and is mostly asleep Plan: Continue with supportive care I ordered PT and OT to start working with him (3) Metastatic melanoma He has mets to the liver. In addition he was found to have new vertebral T- spine abnormality, probably more mets Plan: Unfortunately during a fever, his chemotherapy is on hold. This was explained to the yesterday. She said she called his Oncologist who told her the same thing. (4) Dehydration Plan: Continue IV fluids, hold Lasix I will start decreasing the iv rate and wean it to off (5) History of pulmonary embolism and A-fib Plan: Continue with home medication of apixaban (6) Sepsis Resolved He had met criteria for sepsis with his fever, elevated WBC of 11.6 at admission and new altered mental status - Current Meds Current Meds: Current Medications Generic Name Dose Route Start Last Admin Trade Name Freq PRN Reason Stop Dose Admin Apixaban 5 mg 10/20/22 09:00 10/22/22 09:15 Apixaban 5 Mg Tablet PO 5 mg BID DAVID Administration Budesonide 0.5 mg 10/20/22 07:00 10/22/22 06:15 Budesonide 0.5 Mg/2 Ml Neb INH 0.5 mg RTBID DAVID Administration Gabapentin 300 mg 10/20/22 09:00 10/22/22 09:15 Gabapentin 300 Mg Capsule PO 300 mg BID DAVID Administration Sodium Chloride 1,000 mls @ 100 mls/hr 10/19/22 23:45 10/22/22 11:17 Normal Saline 0.9% IV 100 mls/hr .Q10H DAVID Administration Cefepime HCl 1 gm/ Sodium 100 mls @ 200 mls/hr 10/20/22 06:00 10/22/22 06:18 Chloride IV Infused Q12H DAVID Infusion Lidocaine 1 patch 10/20/22 11:49 10/20/22 12:02 Lidocaine Patch 5% TOP 1 patch DAILY PRN Administration Moderate Pain (Level 4-6) Multivitamins/Minerals 1 tab 10/20/22 08:00 10/22/22 09:16 Multivitamin W/Minerals Tablet PO 1 tab DAILYWM DAVID Administration Nystatin 1 applic 10/20/22 09:00 10/22/22 09:16 Nystatin Powder 15 Gm TOP 1 applic BID DAVID Administration Sodium Chloride 10 ml 10/20/22 01:00 10/22/22 10:46 Sodium Chloride Flush 0.9% 10 Ml Syringe IVP Not Given 0100,0900,1700 DAVID Tamsulosin HCl 0.4 mg 10/20/22 09:00 10/22/22 09:15 Tamsulosin 0.4 Mg Capsule PO 0.4 mg DAILY DAVID Administration - Lab Result Fish Bone Diagrams: 10/22/22 04:47 10/22/22 04:47 - Additional Planning My Orders: My Active Orders 10/23/22 05:00 BMP - BASIC METABOLIC PANEL [CHEM] DAILYLAB CBC - COMP BLD CT W/AUTO DIFF [HEME] DAILYLAB 10/24/22 05:00 BMP - BASIC METABOLIC PANEL [CHEM] DAILYLAB CBC - COMP BLD CT W/AUTO DIFF [HEME] DAILYLAB Subjective - Subjective Patient Reports: Resting Comfortably Nursing Reports: Other (He was helped OOB and was able to independently, using a walker, go to the toilet and toilet himself then walked back to bed) Objective Vital Signs: Vital Signs - 24 hr 10/21/22 10/21/22 10/22/22 15:31 23:32 06:15 Temperature 36.7 C 37.2 C Heart Rate 74 Heart Rate [ 124 H 73 Brachial] Respiratory 20 20 16 Rate Blood Pressure 144/81 H 161/65 H [Right Brachial artery] O2 Saturation 99 100 10/22/22 08:00 Temperature 36.6 C Heart Rate Heart Rate [ 69 Brachial] Respiratory 18 Rate Blood Pressure 150/56 H [Right Brachial artery] O2 Saturation 100 Oxygen O2 Source Room air I&O (Last 24 Hrs): Intake and Output Totals x24h 10/20/22 10/21/22 10/22/22 23:59 23:59 23:59 Intake Total 3604.333 3468.333 1440 Output Total 1300 2175 Balance 2304.333 7531.335 5856 General: Alert, No acute distress HEENT: Mucous membr. moist/pink, Other (Skin of his face is ashen-freeman) Neck: Supple, No JVD Neuro: Alert, Disoriented, Non Focal, Other (Minimally communicative) Cardiovascular: No murmurs Respiratory: No respiratory distress Abdomen: Normal bowel sounds, Soft Extremities: No clubbing, No edema, No tenderness/swelling - Results Results: Laboratory Results WBC 7.8 x10^3/uL (4.8-10.8) 10/22/22 04:47 RBC 3.73 10^6/uL (4.70-6.10) L 10/22/22 04:47 Hgb 9.8 g/dL (14.0-18.0) L 10/22/22 04:47 Hct 32.0 % (42.0-52.0) L 10/22/22 04:47 MCV 85.8 fL (80.0-94.0) 10/22/22 04:47 MCH 26.3 pg (27.0-31.0) L 10/22/22 04:47 MCHC 30.6 g/dL (32.0-36.0) L 10/22/22 04:47 RDW 16.2 % (12.0-15.0) H 10/22/22 04:47 Plt Count 294 10^3/uL (130-450) 10/22/22 04:47 MPV 8.4 fL (7.4-11.4) 10/22/22 04:47 Neut # (Auto) 5.2 10^3/uL (1.5-6.6) 10/22/22 04:47 Lymph # (Auto) 1.2 10^3/uL (1.5-3.5) L 10/22/22 04:47 [place] # (Auto) 1.2 10^3/uL (0.0-1.0) H 10/22/22 04:47 Eos # (Auto) 0.2 10^3/uL (0.0-0.7) 10/22/22 04:47 Baso # (Auto) 0.1 10^3/uL (0.0-0.1) 10/22/22 04:47 Absolute Nucleated RBC 0.00 x10^3/uL 10/22/22 04:47 Nucleated RBC % 0.0 /100WBC 10/22/22 04:47 Sodium 139 mmol/L (135-145) 10/22/22 04:47 Potassium 3.8 mmol/L (3.5-5.0) 10/22/22 04:47 Chloride 109 mmol/L (101-111) 10/22/22 04:47 Carbon Dioxide 27 mmol/L (21-32) 10/22/22 04:47 Anion Gap 3.0 (6-13) L 10/22/22 04:47 BUN 18 mg/dL (6-20) 10/22/22 04:47 Creatinine 1.0 mg/dL (0.6-1.2) 10/22/22 04:47 Estimated GFR (MDRD) 70 (>89) L 10/22/22 04:47 Glucose 106 mg/dL (70-100) H 10/22/22 04:47 Lactic Acid 1.8 mmol/L (0.5-2.2) 10/19/22 20:42 Calcium 8.3 mg/dL (8.5-10.3) L 10/22/22 04:47 Phosphorus 3.3 mg/dL (2.5-4.6) 10/21/22 05:16 Magnesium 2.1 mg/dL (1.7-2.8) 10/21/22 05:16 Total Bilirubin 0.5 mg/dL (0.2-1.0) 10/19/22 20:42 AST 23 IU/L (10-42) 10/19/22 20:42 ALT 25 IU/L (10-60) 10/19/22 20:42 Alkaline Phosphatase 194 IU/L (42-121) H 10/19/22 20:42 Total Protein 7.0 g/dL (6.7-8.2) 10/19/22 20:42 Albumin 2.9 g/dL (3.2-5.5) L 10/19/22 20:42 Globulin 4.1 g/dL (2.1-4.2) 10/19/22 20:42 Albumin/Globulin Ratio 0.7 (1.0-2.2) L 10/19/22 20:42 Urine Color YELLOW 10/19/22 20:20 Urine Clarity CLEAR (CLEAR) 10/19/22 20:20 Urine pH 5.0 PH (5.0-7.5) 10/19/22 20:20 Ur Specific [place] 1.025 (1.002-1.030) 10/19/22 20:20 Urine Protein TRACE mg/dL (NEGATIVE) 10/19/22 20:20 Urine Glucose (UA) NEGATIVE mg/dL (NEGATIVE) 10/19/22 20:20 Urine Ketones NEGATIVE mg/dL (NEGATIVE) 10/19/22 20:20 Urine Occult Blood NEGATIVE (NEGATIVE) 10/19/22 20:20 Urine Nitrite NEGATIVE (NEGATIVE) 10/19/22 20:20 Urine Bilirubin NEGATIVE (NEGATIVE) 10/19/22 20:20 Urine Urobilinogen 0.2 (NORMAL) E.U./dL (NORMAL) 10/19/22 20:20 Ur Leukocyte Esterase NEGATIVE (NEGATIVE) 10/19/22 20:20 Urine RBC 0-5 /HPF (0-5) 10/19/22 20:20 Urine WBC 0-3 /HPF (0-3) 10/19/22 20:20 Ur Squamous Epith Cells RARE Squamous (<= Few) 10/19/22 20:20 Urine Crystals 6-10 Calcium Oxalate /LPF 10/19/22 20:20 Amorphous Sediment Few /LPF 10/19/22 20:20 Urine Bacteria None Seen /HPF (None Seen) 10/19/22 20:20 Urine Culture Comments NOT INDICATED 10/19/22 20:20 Nasal Adenovirus (PCR) NOT DETECTED 10/19/22 21:33 Nasal B. parapertussis DNA (PCR) NOT DETECTED 10/19/22 21:33 Nasal Coronavir 229E PCR NOT DETECTED 10/19/22 21:33 Nasal Coronavir HKU1 PCR NOT DETECTED 10/19/22 21:33 Nasal Coronavir NL63 PCR NOT DETECTED 10/19/22 21:33 Nasal Coronavir OC43 PCR NOT DETECTED 10/19/22 21:33 Nasal Enterovir/Rhinovir PCR NOT DETECTED 10/19/22 21:33 Nasal Influenza B PCR NOT DETECTED 10/19/22 21:33 Nasal Influenza A PCR NOT DETECTED 10/19/22 21:33 Nasal Parainfluen 1 PCR NOT DETECTED 10/19/22 21:33 Nasal Parainfluen 2 PCR NOT DETECTED 10/19/22 21:33 Nasal Parainfluen 3 PCR NOT DETECTED 10/19/22 21:33 Nasal Parainfluen 4 PCR NOT DETECTED 10/19/22 21:33 Nasal RSV (PCR) NOT DETECTED 10/19/22 21:33 Nasal B.pertussis DNA PCR NOT DETECTED 10/19/22 21:33 Nasal C.pneumoniae (PCR) NOT DETECTED 10/19/22 21:33 Nathan Human Metapneumo PCR NOT DETECTED 10/19/22 21:33 Nasal M.pneumoniae (PCR) NOT DETECTED 10/19/22 21:33 Nasal SARS-CoV-2 (PCR) NOT DETECTED 10/19/22 21:33 - Procedures Procedures: Procedures INSERTION OF INFUSION DEV INTO SUP VENA CAVA, PERC APPROACH (07/15/22)
[2022-10-23] MEDS: SODIUM CHLORIDE FLUSH 0.9% 10 ML SYRINGE IVP SCH ×3 (00:40→16:15)
[2022-10-23] MEDS: CEFEPIME 1 GM in SODIUM CHLORIDE 0.9% MINIBAG 100 ML IV SCH (05:37)
[2022-10-23] MEDS: BUDESONIDE 0.5 MG/2 ML NEB INH SCH (06:24)
[2022-10-23 09:59] LABS: BASOPHILS # (AUTO) 0.1 10^3/uL (0.0-0.1); BASOPHILS % (AUTO) 0.8 %; EOSINOPHILS # (AUTO) 0.1 10^3/uL (0.0-0.7); EOSINOPHILS % (AUTO) 1.7 %; HCT - HEMATOCRIT 34.6 % (42.0-52.0); HGB - HEMOGLOBIN 10.4 g/dL (14.0-18.0); LYMPHOCYTES # (AUTO) 1.1 10^3/uL (1.5-3.5); LYMPHOCYTES % (AUTO) 13.4 %; MEAN CORPUSCULAR HEMOGLOBIN 26.2 pg (27.0-31.0); MEAN CORPUSCULAR HGB CONC 30.1 g/dL (32.0-36.0); MEAN CORPUSCULAR VOLUME 87.2 fL (80.0-94.0); MEAN PLATELET VOLUME 8.2 fL (7.4-11.4); MONOCYTES # (AUTO) 1.1 10^3/uL (0.0-1.0); MONOCYTES % (AUTO) 12.9 %; NEUTROPHILS # (AUTO) 5.9 10^3/uL (1.5-6.6); NEUTROPHILS % (AUTO) 70.7 %; PLT - PLATELET COUNT 306 10^3/uL (130-450); RED BLOOD COUNT 3.97 10^6/uL (4.70-6.10); RED CELL DISTRIBUTION WIDTH 15.9 % (12.0-15.0); WHITE BLOOD COUNT 8.3 x10^3/uL (4.8-10.8)
[2022-10-23 10:30] LABS: CALCIUM 8.8 mg/dL (8.5-10.3); CREATININE 0.9 mg/dL (0.6-1.2); POTASSIUM 3.7 mmol/L (3.5-5.0)
[2022-10-23] MEDS: TAMSULOSIN 0.4 MG CAPSULE PO SCH (11:36)
[2022-10-23] MEDS: GABAPENTIN 300 MG CAPSULE PO SCH (11:36)
[2022-10-23] MEDS: MULTIVITAMIN W/MINERALS TABLET PO SCH (11:37)
[2022-10-23] MEDS: APIXABAN 5 MG TABLET PO SCH (11:37)
[2022-10-23] MEDS: NYSTATIN POWDER 15 GM TOP SCH (11:37)
[2022-10-23] MEDS ORDERED: cefTRIAXone 2 GM in SODIUM CHLORIDE 0.9% MINIBAG 100 ML IV SCH (13:00)
--- NOTE | 2022-10-23 15:28 | DISCHARGE SUMMARY ---
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 He is taking oral chemotherapy. This patient's history is complicated by recent recurrent E. coli bacteremia. He completed a prolonged course of IV a ntibiotics, given via a PICC line, finished 2 weeks ago. 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 This was at [facility] during one of his recent hospitalizations. Over the last 2 weeks or so, he has been doing well with the exception of one fall, for which she was seen in the emergency department because he is on Eliquis. The head CT at that time was negative. At baseline, patient is confused and minimally communicative. Family thinks he may have dementia, though no formal diagnosis of such, per . Today he presents to the ER with a fever that began this afternoon, plus worsening confusion. In the ER he is febrile with a temperature of 38.9 C. His heart rate is 88 sinus rhythm with right bundle branch block. His blood pressure is 149/66. He is obtunded, which is not his baseline. Chest x-ray and his urinalysis were unremarkable. Resp PCR is neg. WBC is 11.6. Hemoglobin is 10.3. His electrolytes show a normal BUN and creatinine. He does have mildly elevated alk phos. His Lactic Acid level is not elevated. His CT abd/pelvis, saw no potential source of infection. At this stage, given the history of the recurrent E-coli bacteremia, currently on chemotherapy, with a fever, pt needs admission until source of fever is found. With a history of E. coli bacteremia, he got iv Ceftriaxone in the ER. Patient's and son advocate that the patient is a DNR/DNI. IV fluids, antibiotics and inotropes would be okay, but no pacer. - HOSPITAL COURSE Hospital Course: (1) Sepsis He had met criteria for sepsis with his fever, elevated WBC of 11.6 at admission, and new altered mental status. He was put on iv fluids and empiric iv Cefepime and iv Vancomycin. (2) E coli bacteremia The blood cultures drawn in the ER, quickly came back growing E. coli. 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 The last few times it was felt to be an under-treated infection with unknown source. He was then [facility] at [facility], completed 2 weeks of antibiotics at [facility] and 4 weeks of antibiotics after discharge. During that hospitalization at [facility], he had his port removed and pacemaker removed, because they thought those were sources for bacteria re-seeding his bloodstream, according to his . It was only 2 weeks since he finished that long course of IV antibiotics. We got the discharge summary from [facility], which said he had endocarditis on the pacemaker wire. Empiric iv Vancomycin was then stopped, when that E coli grew in cx. The empiric iv Cefepime has continued. I reached Dr. Eldridge at [facility] [phone] , the ID doctor who coordinated his recent 6-8-week course of IV antibiotics, for further recommendations. She advised we can change Cefepime to Ceftriaxone 2 g daily, which was done, since the Cefepime could be adding to his confusion. She revealed that the patient also had a pulmonic valve endocarditis which they thought would be treated and healed with that long course of antibiotics. Dr Eldridge agreed the patient needed to be transferred to [facility]. Without a discharge summary, the detail about pulmonic valve endocarditis was not known to us. The revealed that information, when she was informed about Dr Eldridge recommending transfer. I reached out to a Hospitalist who accepted the patient in transfer to [facility]. (3) Dementia He has never had this officially diagnosed, per the , but he is disoriented at baseline and minimally communicative. According to the , during those 8 weeks of IV antibiotics, he had in-home physical therapy and became independent, could dress himself and toilet himself. Then with this new fever, he again became obtunded, minimally communicative and was mostly asleep (4) Metastatic melanoma He has mets to the liver. In addition he was found to have new vertebral T- spine abnormality, probably more mets. During fever and infection, his chemotherapy was put on hold. This was explained to the . She said she called his Oncologist, who told her the same thing. (5) Dehydration He was put on IV fluids, and held his Lasix (6) History of pulmonary embolism and A-fib We continued with his home medication of Apixaban - ALLERGIES Allergies/Adverse Reactions: Allergies Allergy/AdvReac Type Severity Reaction Status Date / Time pneumococcal vaccine Allergy Hives Verified 10/19/22 20:39 [From Reynaldo 13 (PF)] - MEDICATIONS Home Medications: Ambulatory Orders Medication Instructions Recorded Confirmed Apixaban [Eliquis] 2.5 mg PO BID 07/08/22 10/20/22 Gabapentin [Neurontin] 300 mg PO BID 07/08/22 10/20/22 Binimetinib [Mektovi] 30 mg PO BID 07/09/22 10/20/22 Encorafenib [Braftovi] 300 mg PO DAILY 07/09/22 10/20/22 Furosemide [Lasix] 20 mg PO MOWEFR #15 tab 07/28/22 10/20/22 Multivitamin W/Minerals [Theragran 1 tab PO DAILYWM #30 tab 07/28/22 10/20/22 M] Tamsulosin [Flomax] 0.4 mg PO DAILY #30 cap 07/28/22 10/20/22 Acetaminophen [Tylenol] 650 mg PO DAILY PRN 10/20/22 10/20/22 Docusate Sodium [Dulcolax Stool 100 mg PO DAILY PRN 10/20/22 10/20/22 Softener] Petrolatum,White [Advanced Healing] 1 applic TOP DAILY PRN 10/20/22 10/20/22 Potassium Chloride [Klor-Con] 20 meq PO TUTHSA 10/20/22 10/20/22 - PHYSICAL EXAM AT DISCHARGE General Appearance: positive: No acute distress, Alert, Other (Cachectic with sunken eyes and cheeks. Skin is balderas-purple.) Eyes Bilateral: positive: Normal inspection, EOMI ENT: positive: ENT inspection nml, No signs of dehydration Neck: positive: Nml inspection, No JVD Respiratory: positive: No respiratory distress, Breath sounds nml Cardiovascular: positive: No murmur Abdomen: positive: Non-tender, Nml bowel sounds, No distention Skin: positive: Warm, Dry, Pallor (Balderas-purple skin discoloration.) Extremities: positive: Non-tender, No pedal edema Neurologic/Psychiatric: positive: Motor nml, Disoriented to person, Disoriented to place, Disoriented to time, Other (Minimally communicative.) - LABS Result Diagrams: 10/23/22 09:52 10/23/22 09:52 - DIAGNOSTIC IMAGING Diagnostic Imaging Results: Final report reviewed - FOLLOW UP Follow Up: This will be determined after his stay at [facility]. - TIME SPENT Time Spent in Discharge (Minutes): 55
--- NOTE | 2022-10-23 15:28 | Discharge Plan ---
Discharge Plan Problem Reviewed?: Yes Disposition: 02 Transfer Acute Care Hosp No Smoking: If you smoke, Please STOP! Call for help. Follow-up with: Matt Mims MD [Primary Care Provider] -
[2022-10-23] MEDS: LIDOCAINE PATCH 5% TOP PRN (18:24)
[2022-10-23 18:43] VITALS: BP 136/64
== END 2022-10-23 19:30 | disposition short-term general hospital (02) | DRG 872 ==
LOC: ED 20:21 → MS2 23:59
PROVIDERS: ADMIT Hospitalist; ATTEND Specialist
DX: A41.9 Sepsis, unspecified organism (principal); A41.51 Sepsis due to Escherichia coli [E. coli]; C78.7 Secondary malignant neoplasm of liver and intrahepatic bile duct; F03.90 Unspecified dementia, unspecified severity, without behavioral disturbance, psychotic disturbance, mood disturbance, and anxiety; I10 Essential (primary) hypertension; E78.00 Pure hypercholesterolemia, unspecified; E86.0 Dehydration; J45.909 Unspecified asthma, uncomplicated; H91.90 Unspecified hearing loss, unspecified ear; M19.90 Unspecified osteoarthritis, unspecified site; M54.9 Dorsalgia, unspecified; G89.29 Other chronic pain; C78.89 Secondary malignant neoplasm of other digestive organs; I45.10 Unspecified right bundle-branch block; Z20.822 Contact with and (suspected) exposure to COVID-19; C43.9 Malignant melanoma of skin, unspecified; Z66 Do not resuscitate; Z79.01 Long term (current) use 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s; Z79.899 Other long term (current) drug therapy; Z86.711 Personal history of pulmonary embolism; Z86.79 Personal history of other diseases of the circulatory system; Z92.21 Personal history of antineoplastic chemotherapy
CPT/HCPCS: 36415; 71045; 74177; 80048; 80053; 81001; 83605; 83735; 84100; 85025; 87040; 87077; 87150; 87181; 87633; 93005; 94640; 96365; 96366; 96375; 97162; 97166; 99285; A9270; J0131; J3370; J7626; Q9967; 87086

== ENCOUNTER 2022-11-13 08:00 | Outpatient (CLI) | payer MEDICARE, OTHER ==
[2022-11-13 18:06] LABS: BASOPHILS % (AUTO) 0.4 %; EOSINOPHILS # (AUTO) 0.1 10^3/uL (0.0-0.7); HGB - HEMOGLOBIN 9.7 g/dL (14.0-18.0); LYMPHOCYTES # (AUTO) 1.5 10^3/uL (1.5-3.5); LYMPHOCYTES % (AUTO) 14.3 %; MEAN CORPUSCULAR HEMOGLOBIN 25.3 pg (27.0-31.0); MEAN CORPUSCULAR HGB CONC 30.3 g/dL (32.0-36.0); MEAN CORPUSCULAR VOLUME 83.6 fL (80.0-94.0); MEAN PLATELET VOLUME 8.6 fL (7.4-11.4); MONOCYTES # (AUTO) 1.2 10^3/uL (0.0-1.0); MONOCYTES % (AUTO) 11.3 %; NEUTROPHILS # (AUTO) 7.6 10^3/uL (1.5-6.6); NEUTROPHILS % (AUTO) 72.5 %; PLT - PLATELET COUNT 423 10^3/uL (130-450); RED BLOOD COUNT 3.83 10^6/uL (4.70-6.10); RED CELL DISTRIBUTION WIDTH 16.7 % (12.0-15.0); WHITE BLOOD COUNT 10.5 x10^3/uL (4.8-10.8)
[2022-11-13 18:13] LABS: ALBUMIN 3.2 g/dL (3.2-5.5); ALBUMIN/GLOBULIN RATIO 1.1 (1.0-2.2); BILIRUBIN,TOTAL 0.3 mg/dL (0.2-1.0); CALCIUM 9.3 mg/dL (8.5-10.3); CREATININE 0.8 mg/dL (0.6-1.3); POTASSIUM 4.2 mmol/L (3.5-4.5); TOTAL PROTEIN 6.1 g/dL (6.4-8.9)
== END 2022-11-13 23:59 | disposition home or self-care (01) ==
LOC: LAB.R 08:00
DX: R78.81 Bacteremia (principal)
CPT/HCPCS: 80053; 85025